=== PATIENT | female | born 1985 | race Caucasian/White ===

== ENCOUNTER 2017-06-21 12:41 | Emergency (ER) | payer OTHER, SELFPAY ==
[2017-06-21 12:42] VITALS: BP 143/81; PULSE 105; RESP 16; TEMP 36.4; O2SAT 99; BMI 41.1
[2017-06-21 12:55] VITALS: O2SAT 98
--- NOTE | 2017-06-21 13:25 | EKG12_ITS ---
Test Reason : SOB Blood Pressure : / mmHG Vent. Rate : 091 BPM Atrial Rate : 091 BPM P-R Int : 150 ms QRS Dur : 084 ms QT Int : 332 ms P-R-T Axes : 057 060 028 degrees QTc Int : 408 ms Normal sinus rhythm with sinus arrhythmia Normal ECG Confirmed by ANNA HARTMAN, SHAYNA ([id number]), restaurant expeditor CARMELLA QUINN ([id number]) on 06/26/2017 4:08:51 PM Referred By: Hanh Balderas Confirmed By:SHAYNA CASTILLO MD
--- NOTE | 2017-06-21 13:26 | VDLE_ITS ---
Reason For Study: SHORTNESS OF BREATH RIGHT LEFT GSV is normal. GSV is normal. CFV is compressible, spontaneous, phasic, CFV is compressible, spontaneous, phasic, competent and demonstrates normal competent, and demonstrates normal augmentation. augmentation. FV is compressible, spontaneous, phasic, FV is compressible, spontaneous, phasic, competent and demonstrates normal competent and demonstrates normal augmentation. augmentation. POP V is compressible, spontaneous, phasic, POP V is compressible, spontaneous, phasic, competent and demonstrates normal competent and demonstrates normal augmentation. augmentation. T/P Trunk is compressible. T/P Trunk is compressible. PTV is compressible. PTV is compressible. RT PerV is compressible. LT PerV is compressible. Procedure Exam performed portable in ED. A preliminary report was called and/or faxed to Dr. Tan. Interpretation Summary No evidence for acute deep venous thrombosis bilateral lower extremities with patent and compressible bilateral great saphenous veins. Ordering Physician: Catherine Tan Referring Physician: Hanh Balderas Performed By: Krisatl Chanel RVT
--- NOTE | 2017-06-21 13:26 | CT_ITS ---
STUDY: CTA CHEST REASON FOR EXAM: Female, 32 years old. Shortness of breath. The patient is 30 weeks . The patient was shielded appropriately. RADIATION DOSAGE (If Supplied By Facility): CTDIvol = ( 29.91 ) mGy, DLP = ( 669.36 ) mGycm TECHNIQUE: The examination was performed with the intravenous administration of 100ML ml of Isovue 370 contrast material. Post-processing of the angiographic images was performed, with multiplanar reformation and 3D reconstruction. Individualized dose optimization techniques were used for this CT. COMPARISON: Comparison is made with prior study dated November 09, 2016. FINDINGS: Normal enhancement of the main pulmonary artery and right and left pulmonary arteries. Normal enhancement of the bilateral peripheral pulmonary arteries. There is no demonstrated pulmonary embolism. Normal thoracic aorta and visualized great vessels. There is no demonstrated aortic dissection. Normal heart and pericardium. Normal mediastinum. Normal hilar regions. Normal visualized trachea and bronchi. The lungs are well expanded. Mild degree of increased markings at the right lung base suggests atelectasis Normal pleura. Normal chest wall structures. Normal osseous structures. Normal visualized upper abdomen. CT/CTA Chest W/WO Contrast IMPRESSION: Normal CTA chest examination, without a demonstrated pulmonary embolism or arterial dissection. Electronically Signed: Christiano Eduardo MD at 15:39 EST Tel [phone], Service support ,
--- NOTE | 2017-06-21 13:30 | ED.VISSUMM ---
- ER Visit Summary Date of Service: 06/21/17 Chief Complaint: Shortness of breath History of Present Illness: The patient is a 32 F presenting with shortness of breath. She states she feels that she cannot get a deep breath. She has had intermittent chest pain today. She is 30 weeks . Denies vaginal bleeding or abdominal pain. She is . She has had lower extremity swelling which she noticed yesterday, but is now improved. She recently finished a Z-Haja for bronchitis. She has had a cough. She follows with Dr. Jeremias Lal. Physical Examination: Blood pressure 143/81, temperature 97.5, heart rate 105, respiratory rate 16, pulse ox 99% on room air. Alert no acute distress. HEENT exam is unremarkable. Neck is supple. Lungs are clear and equal bilaterally. Heart is regular rate and rhythm. Abdomen is soft nontender gravid Extremities are unremarkable. No edema. Skin is warm and dry. No focal neurologic deficit. Remainder of exam is unremarkable. Emergency Department Course and Treatment: EKG is sinus rate of 91 with no acute ischemic changes. CBC chemistries unremarkable. INR is 1.0. Urinalysis shows trace leukocytes, trace protein. Troponin is negative. Liver enzymes are unremarkable. Uric acid is normal. CTA chest shows no evidence of PE. Bilateral lower extremity ultrasound shows no evidence of DVT. Repeat blood pressure without medication is 111/62. heart tones 139. Patient is feeling improved and resting comfortably in the emergency department. Discussed with Dr. Jeremias Lal and patient will follow up with her in the office. Advised return to ED if worsening complaints. Disposition: Discharge home Impression: Bronchitis, This note was generated with [employer] dictation software. It may contain incorrect words, spelling, and punctuation that were not noted in review of the chart prior to signing ED Disposition - Plan for ED Patient: Chief Complaint: Shortness of Breath Referrals: Nmia Whitman MD [Primary Care Provider] -
[2017-06-21 13:44] LABS: Red Blood Cells-Urine 0 SEEN /hpf (0-5)
[2017-06-21 13:45] LABS: Bacteria 0 SEEN /hpf (None Seen); Mucous, Urine 0 SEEN /hpf (<or=2+)
[2017-06-21 13:46] LABS: Color, Urine Yellow (Yellow); Glucose, Dipstick 50 mg/dl (Normal); Ketone-Dipstick 5 mg/dl (Negative); Leukocyte Esterase-Dipstick 25 /ul (Negative); Nitrite-Dipstick Negative (Negative); Occult Blood-Urine Negative /ul (Negative); Protein-Dipstick 15 mg/dl (Negative); Urine Bilirubin Dipstick Negative (Negative); Urine Clarity Sl. Cloudy (Clear); Urine Urobilinogen Normal (Normal); Urine pH 6.5 (5.0 - 8.0)
[2017-06-21 13:54] LABS: Squamous Epithelial Cells - UA 0-5 SEEN /hpf (5-10); White Blood Cells 0-5 SEEN /hpf (0-5)
[2017-06-21 14:26] LABS: Absolute Lymphocyte Count 1.48 X10^3/ul (0.83-4.51); Absolute Neutrophil Count 4.6 X10^3/uL (2.0-7.7); Basophil# 0.01 X10^3/uL; Basophil% 0.1 % (0-1); Eosinophil# 0.12 X10^3/uL; Eosinophils% 1.8 % (0-5); Hematocrit 33.6 % (37-47); Lymphocyte # 1.48 X10^3/ul (4.0); Lymphocyte % 21.7 % (19-41); Mean Corp Hgb Conc 32.7 g/gl (32-36); Mean Corpuscular Hgb 28.6 pg (27.0-32.0); Mean Corpuscular Volume 87.5 fL (81-99); Mean Platelet Vol. 10.7 fl (6.2-12.0); Monocyte# 0.61 X10^3/uL; Monocyte% 8.9 % (0-10); Neutrophil # 4.55 X10^3/uL (2.7-7.7); Neutrophil % 66.8 % (47-70); Platelet Count 163 K/mm3 (150-450); RBC Distribution Width CV 14.2 % (11.6-14.6); RBC Distribution Width SD 44.4 fl (35.1-43.9); Red Blood Count 3.84 M/mm3 (4.2-5.4); White Blood Count 6.8 K/mm3 (4.4-11.0)
[2017-06-21 14:36] LABS: POSITIVE COUNT NO; POSITIVE DIFFERENTIAL NO; POSITIVE MORPHOLOGY NO
[2017-06-21 14:39] LABS: AST(SGOT) 9 U/L (15-37); Alanine Aminotransfer ALT/SGPT 18 U/L (13-56); Albumin, Serum 2.7 g/dL (3.2-5.0); Alkaline Phosphatase 71 U/L (45-117); Anion Gap 8 (5-15); BUN 6 mg/dL (7-18); BUN/Creat Ratio 11.5 RATIO (10-20); Bilirubin, Direct 0.08 mg/dL (0.00-0.30); Calcium,Total 8.7 mg/dL (8.5-10.1); Chloride 104 mmol/L (98-107); Creatinine, Serum 0.52 mg/dL (0.55-1.02); EST Glomerular Filtration Rate 147 mL/min (>60); Est Glom Filt Rate - Afr Amer 178 mL/min (>60); Estimated Creatinine Clearance 142.35 ml/min; Globulin 3.8 g/dL (2.2-4.2); Glucose 114 mg/dL (70-110); Potassium 3.5 mmol/L (3.5-5.1); Protein, Total 6.5 g/dL (6.4-8.2); Sodium Level 138 mmol/L (136-145); Uric Acid 3.1 mg/dL (2.6-6.0)
[2017-06-21 14:40] LABS: Partial Thromboplast Time 26.7 Seconds (24.1-36.2); Prothrombin Time (Protime)PT. 12.4 SECONDS (11.7-14.9)
[2017-06-21 15:07] VITALS: BP 111/62; PULSE 81; RESP 25; O2SAT 96
[2017-06-21 15:56] VITALS: BP 102/80; PULSE 84; RESP 20; O2SAT 99
--- NOTE | 2017-06-21 15:56 | NURSING ---
DR MARIE NAVARRO
--- NOTE | 2017-06-21 16:50 | ED.DEP ---
ED Disposition - Plan for ED Patient: Chief Complaint: Shortness of Breath Instructions: ED Upper Resp Infec No Abx Tx Referrals: Nima Whitman MD [Primary Care Provider] - Cassidy Moore MD [STAFF PHYSICIAN] -
[2017-06-21 16:52] VITALS: BP 120/72; PULSE 85; RESP 21; O2SAT 98
--- NOTE | 2017-06-21 16:52 | ED.RN ---
PT GIVEN WRITTEN AND VERBAL DISCHARGE INSTRUCTIONS. PT VERBALIZES UNDERSTANDING. PT IV D/C AND COVERED WITH 2X2 GAUZE, MINIMAL BLEEDING NOTED. PT AMBULATORY HOME.
== END 2017-06-21 17:00 | disposition home or self-care (01) ==
PROVIDERS: Emergency Provider Emergency Medicine; Family Provider Family Medicine; PCP Family Medicine
DX: O99.513 Diseases of the respiratory system complicating pregnancy, third trimester (principal); J40 Bronchitis, not specified as acute or chronic; O99.283 Endocrine, nutritional and metabolic diseases complicating pregnancy, third trimester; E07.9 Disorder of thyroid, unspecified; Z3A.30 30 weeks gestation of pregnancy
CPT/HCPCS: 71275; 80048; 80076; 81001; 84484; 84550; 85025; 85610; 85730; 93005; 93970; 99283; Q9967; A4216

== ENCOUNTER → 2017-07-13 12:24 | Outpatient (CLI) | payer OTHER, SELFPAY ==
[2017-07-13 13:38] LABS: Absolute Lymphocyte Count 1.33 X10^3/ul (0.83-4.51); Absolute Neutrophil Count 4.7 X10^3/uL (2.0-7.7); Basophil# 0.01 X10^3/uL; Basophil% 0.1 % (0-1); Eosinophil# 0.14 X10^3/uL; Eosinophils% 2.1 % (0-5); Hematocrit 35.7 % (37-47); Hemoglobin 11.7 g/dl (12.0-15.0); Lymphocyte # 1.33 X10^3/ul (4.0); Lymphocyte % 19.5 % (19-41); Mean Corp Hgb Conc 32.8 g/gl (32-36); Mean Corpuscular Hgb 28.4 pg (27.0-32.0); Mean Corpuscular Volume 86.7 fL (81-99); Mean Platelet Vol. 11.2 fl (6.2-12.0); Monocyte# 0.57 X10^3/uL; Monocyte% 8.4 % (0-10); Neutrophil # 4.74 X10^3/uL (2.7-7.7); Neutrophil % 69.5 % (47-70); Platelet Count 164 K/mm3 (150-450); RBC Distribution Width CV 14.6 % (11.6-14.6); RBC Distribution Width SD 44.9 fl (35.1-43.9); Red Blood Count 4.12 M/mm3 (4.2-5.4); White Blood Count 6.8 K/mm3 (4.4-11.0)
[2017-07-13 13:47] LABS: POSITIVE COUNT NO; POSITIVE DIFFERENTIAL NO; POSITIVE MORPHOLOGY NO
[2017-07-13 14:14] LABS: Thyroid Stim Hormone (TSH) 2.53 uIU/mL (0.358-3.74)
== END ==
PROVIDERS: Obstetrics & Gynecology; Family Provider Family Medicine; PCP Family Medicine; Visit Provider Nurse Practitioner Women's Health
DX: E03.9 Hypothyroidism, unspecified (principal)
CPT/HCPCS: 36415; 84443; 85025; 86850; 86900

== ENCOUNTER → 2017-07-14 12:22 | Outpatient (CLI) | payer OTHER, SELFPAY ==
--- NOTE | 2017-07-14 12:24 | US_ITS ---
STUDY: SECOND AND THIRD TRIMESTER OBSTETRICAL ULTRASOUND - LIMITED REASON FOR EXAM: Female, 32 years old. Evaluate for growth. LMP: March 28, 2017. PRIOR ULTRASOUND: April 07, 2017. TECHNIQUE: Transabdominal ultrasound evaluation was performed. FINDINGS: There is a single intrauterine fetus. The fetus is in a cephalic presentation. There is demonstrated cardiac activity with a heart rate of 119 bpm. There is a normal amniotic fluid volume. The largest amniotic fluid pocket measures 6.3 cm. The amniotic fluid index (DERIC) is 18.6 cm. The placenta is fundal in location. There are Grade 1 placental changes. The cervix measures 2.4 cm in length. Appears to be some endocervical fluid and questionable funneling of the cervix. BIOMETRY: BPD: 8.8 cm: 35 weeks, 5 days HC: 31.8 cm: 35 weeks, 6 days AC: 30.4 cm: 34 weeks, 3 days FL: 6.6 cm: 34 weeks, 1 days Age by LMP: 33 weeks, 0 days. AMELIA by LMP: September 01, 2017. age by prior US: 33 weeks, 3 days. AMELIA by prior US: August 29, 2017. age by current US: 35 weeks, 1 days. AMELIA by current US: August 17, 2017. Estimated weight: 2464 grams, +/- 360 grams, 86 percentile. Gender: Indeterminant US/OB Limited With Biometrics IMPRESSION: 1. Single living intrauterine gestation with estimated gestational age by size greater than that predicted by dates. 2. There has been greater than predicted interval growth since previous OB ultrasound. 3. Questionable of funneling of the endocervical canal Electronically Signed: Darline Maurer MD at 9:33 EST , Service support ,
== END ==
PROVIDERS: Family Provider Family Medicine; PCP Family Medicine; Visit Provider Obstetrics & Gynecology
DX: O24.420 Gestational diabetes mellitus in childbirth, diet controlled (principal); Z3A.00 Weeks of gestation of pregnancy not specified; Z37.9 Outcome of delivery, unspecified
CPT/HCPCS: 76816

== ENCOUNTER 2017-07-15 18:45 | Outpatient (CLI) | payer OTHER, SELFPAY ==
[2017-07-15 19:32] LABS: ROM Internal Control Test YES-OK TO RESULT pt. (Internal QC)
[2017-07-15 19:33] LABS: ROM Patient Test Negative (Negative)
[2017-07-15 19:37] VITALS: BMI 40.8
[2017-07-15 21:10] VITALS: RESP 18
--- NOTE | 2017-07-19 22:20 | OB.TRI.NOTE ---
History of Present Illness Date of Service: 07/15/17 Was patient seen by the physician?: No Reason For Visit: R/O ROM Date of Service: 07/15/17 History of Present Illness: questionable ROM and vaginal discharge, threatened PTL Home Medications Medication Instructions Recorded Levothyroxine [Synthroid] 112 mcg PO DAILY 05/27/15 Allergies latex Allergy (Verified 07/17/17 10:49) Itching Penicillins [PCN] Allergy (Verified 07/17/17 10:49) Rash ketorolac [From Toradol] Adverse Reaction (Verified 07/17/17 10:49) Other ondansetron HCl [From Zofran (as hydrochloride)] Adverse Reaction (Verified 07/17/17 10:49) Other headaches Physical Exam Vitals: Vital Signs Resp 18 07/15/17 21:10 NST - FHR Rate Baby A Baseline: 140-150 Variability:: Moderate Accelerations:: 15 x 15 Decelerations:: None NST Reactive:: Yes FHR Category:: Category I Uterine Activity:: no regular Impression/Plan threatened PTL negative ROM just vaginal discharge dc home labor precautions
== END 2017-07-15 21:10 | disposition home or self-care (01) ==
LOC: WPOUT 19:01 → WP 19:01
PROVIDERS: Family Provider Family Medicine; PCP Family Medicine; Visit Provider Obstetrics & Gynecology
DX: O60.00 Preterm labor without delivery, unspecified trimester (principal); N89.8 Other specified noninflammatory disorders of vagina; Z3A.00 Weeks of gestation of pregnancy not specified
CPT/HCPCS: 59025; 59050; 84112

== ENCOUNTER 2017-07-19 12:26 | Outpatient (RCR) | payer OTHER, SELFPAY | END 2017-07-19 23:59 | LOC: DC 12:26 | PROVIDERS: Family Provider Family Medicine; PCP Family Medicine; Visit Provider Obstetrics & Gynecology | DX: O24.410 Gestational diabetes mellitus in pregnancy, diet controlled (principal); Z71.3 Dietary counseling and surveillance | CPT/HCPCS: G0108 ==

== ENCOUNTER → 2017-07-27 14:34 | Outpatient (CLI) | payer OTHER, SELFPAY ==
--- NOTE | 2017-07-27 14:35 | US_ITS ---
STUDY: SECOND AND THIRD TRIMESTER OBSTETRICAL ULTRASOUND - LIMITED REASON FOR EXAM: Female, 32 years old. growth evaluation. Gestational diabetes. LMP: 11/25/2016 PRIOR ULTRASOUND: 07/14/2017 TECHNIQUE: Transabdominal and transvaginal real-time exam with grayscale image documentation. FINDINGS: There is a single intrauterine fetus. The fetus is in a cephalic presentation. There is demonstrated cardiac activity with a heart rate of 155 bpm. There is a normal amniotic fluid volume. The largest amniotic fluid pocket measures 8.3 x 5.6 cm. The amniotic fluid index (DERIC) is 17 cm. The placenta is fundal and not low-lying. There are Grade 1 placental changes. The cervix measures 2.3 cm in length. The cervical canal mildly dilated are open at the cervical os and proximal endocervix. BIOMETRY: BPD: 9.44 cm: 38 weeks, 4 days HC: 34.2 cm: 39 weeks, 4 days AC: 33.4 cm: 37 weeks, 3 days FL: 7.08 cm: 36 weeks, 3 days Age by LMP: 34 weeks, 6 days. AMELIA by LMP: 09/01/2017. age by prior US: 37 weeks, 1 days. AMELIA by prior US: 08/17/2017. age by current US: 38 weeks, 0 days. AMELIA by current US: 08/10/2017. Estimated weight: 3209 grams, +/- 469 grams, 98 percentile. US/OB Limited With Biometrics IMPRESSION: Single intrauterine fetus measuring 38 weeks and 0 days with an AMELIA of 08/10/2017. Amniotic fluid index of 17 cm. Estimated weight of 3209 g +/- 469 g, 98 percentile. The cervical length is 2.3 cm with a mildly dilated fluid-filled proximal endocervical canal. Grade 1, fundal and not low lying placenta. Electronically Signed: Sandra Russell MD at 23:42 EST , Service support ,
== END ==
PROVIDERS: Family Provider Family Medicine; PCP Family Medicine; Visit Provider Obstetrics & Gynecology
DX: O24.410 Gestational diabetes mellitus in pregnancy, diet controlled (principal); Z3A.38 38 weeks gestation of pregnancy
CPT/HCPCS: 76816

== ENCOUNTER → 2017-08-02 13:58 | Outpatient (CLI) | payer OTHER, SELFPAY ==
[2017-08-02 16:12] LABS: Group B Strep DNA By PCR POSITIVE (Negative); Probe Check PASS
== END ==
PROVIDERS: Family Provider Family Medicine; PCP Family Medicine; Visit Provider Obstetrics & Gynecology
DX: Z34.82 Encounter for supervision of other normal pregnancy, second trimester (principal); Z3A.00 Weeks of gestation of pregnancy not specified
CPT/HCPCS: 87653

== ENCOUNTER → 2017-08-10 18:58 | Outpatient (CLI) | payer OTHER, SELFPAY ==
[2017-08-10 23:13] LABS: Group B Strep DNA By PCR POSITIVE (Negative); Probe Check PASS
== END ==
PROVIDERS: Visit Provider Nurse Practitioner Women's Health
DX: Z34.93 Encounter for supervision of normal pregnancy, unspecified, third trimester (principal); Z3A.36 36 weeks gestation of pregnancy
CPT/HCPCS: 87081; 87186; 87653

== ENCOUNTER 2017-08-21 19:45 | Outpatient (CLI) | payer OTHER, SELFPAY ==
[2017-08-21 20:31] VITALS: BMI 40.1
[2017-08-21 20:42] LABS: ROM Internal Control Test YES-OK TO RESULT pt. (Internal QC); ROM Patient Test Negative (Negative)
[2017-08-21 21:10] VITALS: RESP 18
--- NOTE | 2017-08-22 00:19 | OB.TRI.NOTE ---
History of Present Illness Date of Service: 08/21/17 Was patient seen by the physician?: No Reason For Visit: R/O LABOR Date of Service: 08/21/17 History of Present Illness: false labor LOF Home Medications Medication Instructions Recorded Levothyroxine [Synthroid] 112 mcg PO DAILY 05/27/15 acetone (urine) test strips See Dose Instructions .ROUTE 07/31/17 .MEDSUPPLY #100 ea blood sugar diagnostic strips See Dose Instructions .ROUTE 08/08/17 .MEDSUPPLY #100 ea Allergies latex Allergy (Verified 08/21/17 20:30) Itching Penicillins [PCN] Allergy (Verified 08/21/17 20:30) Rash ketorolac [From Toradol] Adverse Reaction (Verified 08/21/17 20:30) Other unknown, pt can't remember reaction ondansetron HCl [From Zofran (as hydrochloride)] Adverse Reaction (Verified 08/21/17 20:30) Other headaches Physical Exam Vitals: Vital Signs Resp 18 08/21/17 21:10 NST - FHR Rate Baby A Baseline: 120 Variability:: Moderate Accelerations:: 15 x 15 Decelerations:: None NST Reactive:: Yes FHR Category:: Category I Uterine Activity:: irregular Impression/Plan negative amnisure reactive nst dc home labor precautions false labor
== END 2017-08-21 21:10 | disposition home or self-care (01) ==
LOC: WPOUT 19:52 → WP 19:52
PROVIDERS: Family Provider Family Medicine; PCP Family Medicine; Visit Provider Obstetrics & Gynecology
DX: O47.9 False labor, unspecified (principal); Z3A.00 Weeks of gestation of pregnancy not specified
CPT/HCPCS: 59025; 59050; 84112; 99218; G0378

== ENCOUNTER 2017-08-25 06:50 | Inpatient (IN) | payer OTHER, SELFPAY ==
[2017-08-25 07:30] VITALS: BMI 40.2
[2017-08-25 07:51] LABS: Bedside Glucose 148 mg/dL (70-110)
[2017-08-25] MEDS: Lactated Ringers 1,000 ML 50 ML IV ×3 (08:20→12:44)
[2017-08-25 08:43] LABS: Hemoglobin 12.2 g/dl (12.0-15.0); Mean Corpuscular Hgb 28.2 pg (27.0-32.0); Mean Corpuscular Volume 85.5 fL (81-99); Mean Platelet Vol. 11.1 fl (6.2-12.0); Platelet Count 151 K/mm3 (150-450); RBC Distribution Width CV 14.6 % (11.6-14.6); RBC Distribution Width SD 44.6 fl (35.1-43.9); Red Blood Count 4.33 M/mm3 (4.2-5.4); White Blood Count 7.1 K/mm3 (4.4-11.0)
--- NOTE | 2017-08-25 08:46 | NURSING ---
POC BG non fasting at 148. recheck at 0840
[2017-08-25 08:47] LABS: Scan Indicated on CBC? Y/N NO
[2017-08-25 09:01] LABS: Bedside Glucose 89 mg/dL (70-110)
[2017-08-25] MEDS: fentaNYL-bupivacaine (epidural) 100 ML BAG EPIDURAL ×2 (10:51→15:03)
[2017-08-25 11:10] LABS: Bedside Glucose 82 mg/dL (70-110)
[2017-08-25 13:16] LABS: Bedside Glucose 91 mg/dL (70-110)
[2017-08-25] MEDS: Oxytocin 30 units/NS 500 ml 30 UNITS/500 ML IV.SOLN IV (14:04)
[2017-08-25 14:56] LABS: Bedside Glucose 75 mg/dL (70-110)
[2017-08-25] MEDS: Oxytocin 30 units/NS 500 ml 30 UNITS/500 ML IV.SOLN 334 UNITS IV (17:22)
[2017-08-25 17:45] LABS: Bedside Glucose 121 mg/dL (70-110)
[2017-08-25] MEDS: Oxytocin 30 units/NS 500 ml 30 UNITS/500 ML IV.SOLN 167 UNITS IV (17:52)
[2017-08-25 18:05] LABS: Bedside Glucose 84 mg/dL (70-110)
[2017-08-25 19:20] VITALS: BP 119/68; PULSE 90; RESP 18; TEMP 37.1; O2SAT 100
--- NOTE | 2017-08-25 19:48 | NURSING ---
1920-alba cut at delivery legs numb and tingling from epidural. able to move them, however not able to lift off the bed.
[2017-08-25 20:00] VITALS: BP 141/60
[2017-08-25] MEDS: proCHLORPERazine 5 MG Tablet 10 MG PO (20:32)
[2017-08-25 23:00] VITALS: BP 110/53; PULSE 83; RESP 18; TEMP 36.4; O2SAT 97
[2017-08-26] MEDS: Acetaminophen 500 MG Tablet 1000 MG PO ×2 (01:20→15:24)
[2017-08-26] MEDS: oxyCODONE 5 MG Tablet PO ×2 (02:45→20:13)
[2017-08-26 02:48] VITALS: BP 99/50; PULSE 79; RESP 20; TEMP 36.6; O2SAT 100
--- NOTE | 2017-08-26 06:26 | PCM.HP.OB ---
- Problem List (1) Active labor at term Status: Acute (2) Positive GBS test Status: Acute (3) Large for gestational age fetus Status: Acute Comment: EFW less than 4500g at 39 weeks, still plan IOL and (4) Gestational diabetes, diet controlled Status: Acute Qualifiers: Comment: diagnosed based on blood value testing at home, endocrine consult (5) Supervision of normal Status: Acute Qualifiers: Comment: PRR AMELIA 09/01/17 PC Vern Salvatore (6) Rh negative state in antepartum period Status: Acute Comment: Rhogam PRN (7) Hypothyroid Status: Acute Qualifiers: Comment: TSH q trimester (8) Anxiety Status: Acute Comment: celexa and vistaril (9) History of placenta abruption Status: Acute Comment: previous History Date of Admission: 08/25/17 Final AMELIA: 09/01/17 Gestational age: 39 Weeks and 0 Days History of this : 32 yo @ 39 weeks presents IAL 5-6 cm Pertinent Past Medical History: Past Surgical History (Last Reviewed 08/22/17 @ 09:56 by Lenka Swan) arm surgery (Acute) leg surgery (Acute) Mom's Labs & Results 08/25/17 08/25/17 08/25/17 07:37 08:19 08:19 WBC 7.1 RBC 4.33 Hgb 12.2 Hct 37.0 MCV 85.5 MCH 28.2 MCHC 33.0 RDW 14.6 RDW Differential 44.6 H Plt Count 151 MPV 11.1 POC Glucose 148 H Blood Type TNP Antibody Screen TNP Screen Baby's Blood Type Baby's VIRGIL 08/25/17 08/25/17 08/25/17 08:19 08:55 11:03 WBC RBC Hgb Hct MCV MCH MCHC RDW RDW Differential Plt Count MPV POC Glucose 89 82 Blood Type A NEGATIVE Antibody Screen NEGATIVE Screen Baby's Blood Type Baby's VIRGIL 08/25/17 08/25/17 08/25/17 13:07 14:40 15:53 WBC RBC Hgb Hct MCV MCH MCHC RDW RDW Differential Plt Count MPV POC Glucose 91 75 121 H Blood Type Antibody Screen Screen Baby's Blood Type Baby's VIRIGL 08/25/17 08/25/17 17:55 19:05 WBC RBC Hgb Hct MCV MCH MCHC RDW RDW Differential Plt Count MPV POC Glucose 84 Blood Type Antibody Screen Screen NEGATIVE Baby's Blood Type A POSITIVE Baby's VIRGIL NEGATIVE Course Did the patient receive Yes care? Labs Blood Type: A RH: NEGATIVE RPR/VDRL/Syphilis Nonreactive Rubella status Immune HbSAg Negative Date Done: 02/09/17 Chlamydia Negative Gonorrhea Negative HIV/AIDS Non-Reactive Group B Strep: Positive Current Obstetrical History Gestational Diabetes Yes Incompetent Cervix No Infertility No IUGR No Macrosomia Yes: baby measuring LGA Hypertension/Pre-eclampsia No Placenta Previa/Abruption No PTL/PROM No Uterine anomaly No Oligohydramnios No Polyhydramnios No Multiple gestation No Past Medical History Asthma No Diabetes No Hypertension No Heart disease No Mitral valve prolapse No Neurologic/Seizure disorder/ Yes: migraines-no meds during Migraines Kidney disease No Liver disease No Varicosities Yes: right leg Clotting disorders/Hx of DVT No Thyroid Dysfunction Yes: hypothyroidism, on synthroid Other medical diseases No Psychiatric disorders No Major trauma No Abnormal PAP smear No Sleep apnea No Mammogram in the last 2 years No Social History Marital Status: Alleged father Salvatore Hx Smoking Yes Smoking Status Current every day smoker How long have you used n/a substances (years)? Allergies latex Allergy (Verified 08/25/17 07:33) Itching Penicillins [PCN] Allergy (Verified 08/25/17 07:33) Rash ketorolac [From Toradol] Adverse Reaction (Verified 08/25/17 07:33) Other unknown, pt can't remember reaction ondansetron HCl [From Zofran (as hydrochloride)] Adverse Reaction (Verified 08/25/17 07:33) Other headaches Current Medications Acetaminophen (Tylenol) 325 - 650 mg PO Q4H PRN PRN PRN Reason: PAIN OR FEVER >100.4F Acetaminophen (Tylenol) 1,000 mg PO Q8H PRN PRN PRN Reason: MILD PAIN (1-3/10)/Temp>99.6F Last Admin: 08/26/17 01:20 Dose: 1,000 mg Al Hydroxide/Mg Hydroxide (Mylanta Ii) 15 - 30 ml PO Q4H PRN PRN PRN Reason: INDIGESTION Bisacodyl (Dulcolax) 10 mg RECTAL UD PRN PRN Reason: If no BM Citric Acid/Sodium Citrate (Bicitra) 30 ml PO UD PRN Dibucaine (Dibucaine) 1 applic TOPICAL TID PRN PRN; Protocol PRN Reason: Discomfort Hydrocortisone (Hytone) 1 applic TOPICAL TID PRN PRN; Protocol PRN Reason: Discomfort Oxytocin/Sodium Chloride () 30 units in 500 mls @ 1 mls/hr IV .Q500H [facility] Last Admin: 08/25/17 14:04 Dose: 1 mls/hr Naloxone HCl 4 mg/ Dextrose 504 mls @ 0 mls/hr IV PRN PRN; Protocol PRN Reason: TO MAINTAIN RR>10 Lactated Ringer's () 1,000 mls @ 0 mls/hr IV .Q0M RICHA PRN Reason: KVO Levothyroxine Sodium (Synthroid) 112 mcg PO DAILY@0600 [facility] Methylergonovine Maleate (Methergine) 0.2 mg IM X1 PRN PRN Reason: Excess bleeding/uterine atony Nalbuphine HCl (Nubain) 5 - 10 mg IV Q3H PRN PRN PRN Reason: PAIN (4-10/10) Nalbuphine HCl (Nubain) 5 mg IV Q3H PRN PRN Reason: ITCHING Stop: 08/26/17 13:22 Naloxone HCl (Narcan) 0.2 mg IV Q1M PRN PRN Reason: RR<10 AND PT UNRESPONSIVE Stop: 08/26/17 13:22 Naproxen (Naprosyn) 250 - 500 mg PO Q8H PRN PRN PRN Reason: MILD PAIN (1-3/10) Ondansetron HCl (Zofran) 4 mg IV Q4H PRN PRN PRN Reason: Nausea Oxycodone HCl (Oxyir) 5 - 10 mg PO Q4H PRN PRN PRN Reason: MOD-SEVERE PAIN (4-10/10) Last Admin: 08/26/17 02:45 Dose: 5 mg Promethazine HCl (Phenergan Iv) 6.25 - 12.5 mg IV Q4H PRN PRN; Protocol PRN Reason: IF NAUSEA PERSISTS Senna/Docusate Sodium (Senokot-S, Shania-Colace) 1 - 2 tablet PO DAILY PRN PRN PRN Reason: Constipation Simethicone (Mylicon) 80 mg PO PCHS PRN PRN Reason: Indigestion/Stomach pain Sodium Chloride () 5 - 15 ml IV UD RICHA Last Admin: 08/25/17 08:44 Dose: Not Given Smoking Status: Never smoker Alcohol: None Drug Use: none Number of Fetus(es): 1 - 140 moderate variability reactive no decels Review of Systems Constitutional: Denies: Chills, Fever, Weight Change HEENT: Denies: Head Aches, Sinus Congestion, Sinus Drainage Cardiovascular: Denies: Chest Pain, Palpitations Respiratory: Denies: Cough, Shortness of breath at rest, Sputum production Gastrointestinal: Reports: Abdominal Pain. Denies: Nausea, Vomiting Genitourinary: Denies: Dysuria Gynecological: Reports: Vaginal bleeding, Vaginal discharge Musculoskeletal: Denies: Joint Pain, Joint Tenderness Skin: Denies: Rash, Wounds Neurological: Denies: Numbness, Tingling, Focal weakness Psychiatric: Denies: Anxiety, Depression, Homicidal Ideations, Suicidal Ideations Hematologic/ Lymphatic: Denies: Easy Bruising, Easy Bleeding Physical Exam Vitals: Vital Signs Temp Pulse Resp BP Pulse Ox 97.9 F 79 20 H 99/50 L 100 08/26/17 02:48 08/26/17 02:48 08/26/17 02:48 08/26/17 02:48 08/26/17 02:48 General: Alert Cardiovascular: Regular rate Lungs: Normal air movement Abdomen: Soft, Non Tender, Gravid Estimated gestational size: Large for gestational age Presentation: Cephalic Cervix Dilation (cm): 5.5 Station: -3 Effacement (%): 70 Assessment/Plan Active and Suspected Problems (Last Reviewed 08/22/17 @ 09:56 by Lenka Swan) Active labor at term (Acute) 32 yo @ 39 weeks presents IAL arom when able pit if needed gbs pos- pcn gdma1 bs1 hour
[2017-08-26] MEDS: Levothyroxine 112 MCG Tablet PO (06:29)
--- NOTE | 2017-08-26 06:37 | PCM.OB.VAG ---
- Problem List (1) Active labor at term Status: Acute (2) Positive GBS test Status: Acute (3) Large for gestational age fetus Status: Acute Comment: EFW less than 4500g at 39 weeks, still plan IOL and (4) Gestational diabetes, diet controlled Status: Acute Qualifiers: Comment: diagnosed based on blood value testing at home, endocrine consult (5) Supervision of normal Status: Acute Qualifiers: Comment: PRR AMELIA 09/01/17 PC Vern Salvatore (6) Rh negative state in antepartum period Status: Acute Comment: Rhogam PRN (7) Hypothyroid Status: Acute Qualifiers: Comment: TSH q trimester (8) Anxiety Status: Acute Comment: celexa and vistaril (9) History of placenta abruption Status: Acute Comment: previous Vaginal Delivery Maternal Presentation: Active Labor 39 week IAL 5-6 cm Amniotic Membrane Rupture Type: Artificial Amniotic Fluid Description: Clear Final AMELIA: 09/01/17 Gestational age: 39 Weeks and 0 Days Date of Procedure: 08/25/17 Pre-Operative Diagnosis: ial Post-Operative Diagnosis: same Surgery/ Procedure Performed: Spontaneous Vaginal Delivery Type of Anesthesia: Epidural Description of Procedure: Patient began pushing and delivered the head in the PRUDENCIO presentation. The head was delivered atraumatically and a loss nuchal cord x 1 was easily reduced over the infants head. The anterior and posterior shoulders delivered without complication followed by the rest of the and the infant was placed on the maternal abdomen. Delayed cord clamping was employed for approximately 60 seconds. Cord was clamped and cut and gentle traction was applied to the cord and the placenta delivered spontaneously immediately following it was noted to be intact with three-vessel cord. The perineum and vagina were inspected and noted to have no laceration. EBL was 200 cc. Patient and tolerated delivery well. Presentation: PRUDENCIO Placental Delivery Description: Spontaneous Placenta Disposition: [facility] Cord Vessel Description: 3 Vessels Cord Entanglement: Around neck x 1, loose Estimated Blood Loss: 200 Infant A gender: Female Episiotomy Description: None Laceration: Perineal Extension/lac, 2nd degree Medications given after delivery: IV Pitocin Complications: None
--- NOTE | 2017-08-26 06:39 | DCINST_ITS ---
Discharge Diet: No Restrictions Discharge Activity: Return to Normal Activity, May not drive while taking narcotic pain medications., May Shower May resume sexual activity in: 4-6 weeks Call your doctor if your incision/area has: Continuous Slow Oozing, Sudden Increased Bleeding, Increased Pain/ Swelling, Increased Redness, Foul Smelling Discharge Additional Instructions: If you experience any of the following, contact your healthcare provider. * Bleeding that soaks a pad every hour for 2 hours * Fever 100.4 or higher * Unrelieved incision or abdominal pain * Swelling, redness, discharge or bleeding from your incision or episiotomy site * Your incision begins to separate * Problems urinating (including inability to urinate or burning while urinating) . * Visual changes * Severe headache * Flu-like symptoms * Pain or redness in one of both of your breasts * Pain, warmth, tenderness or swelling in your legs, especially the calf area * Frequent nausea and vomiting * Symptoms of depression or anxiety If you experience any of the following, call 911 or go to the nearest Emergency Room. * Chest pain * Problems breathing * Seizure activity * Partial or complete paralysis of a body part, slurred speech, weakness or drooping of the face, or a sudden inability to walk or hold your balance Allergies/Adverse Reactions: Allergies latex Allergy (Verified 08/25/17 07:33) Itching Penicillins [PCN] Allergy (Verified 08/25/17 07:33) Rash ketorolac [From Toradol] Adverse Reaction (Verified 08/25/17 07:33) Other unknown, pt can't remember reaction ondansetron HCl [From Zofran (as hydrochloride)] Adverse Reaction (Verified 11/06 07:33) Other headaches Medications to take at Discharge Levothyroxine [Synthroid] 112 mcg PO DAILY 05/27/15 Please Follow Up With: Cassidy Moore MD - [phone] When: Call to make an appointment with your doctor in 6 weeks. If you had elevated Blood pressure or 4th degree laceration you will need to be seen in 2 weeks. Primary Care Physician: Nima Whitman MD [Primary Care Provider] -
--- NOTE | 2017-08-26 06:39 | PCM.DCVAG ---
Discharge Diet: No Restrictions Discharge Activity: Return to Normal Activity, May not drive while taking narcotic pain medications., May Shower May resume sexual activity in: 4-6 weeks Call your doctor if your incision/area has: Continuous Slow Oozing, Sudden Increased Bleeding, Increased Pain/ Swelling, Increased Redness, Foul Smelling Discharge Additional Instructions: If you experience any of the following, contact your healthcare provider. Bleeding that soaks a pad every hour for 2 hours Fever 100.4 or higher Unrelieved incision or abdominal pain Swelling, redness, discharge or bleeding from your incision or episiotomy site Your incision begins to separate Problems urinating (including inability to urinate or burning while urinating). Visual changes Severe headache Flu-like symptoms Pain or redness in one of both of your breasts Pain, warmth, tenderness or swelling in your legs, especially the calf area Frequent nausea and vomiting Symptoms of depression or anxiety If you experience any of the following, call 911 or go to the nearest Emergency Room. Chest pain Problems breathing Seizure activity Partial or complete paralysis of a body part, slurred speech, weakness or drooping of the face, or a sudden inability to walk or hold your balance Allergies/Adverse Reactions: Allergies latex Allergy (Verified 08/25/17 07:33) Itching Penicillins [PCN] Allergy (Verified 08/25/17 07:33) Rash ketorolac [From Toradol] Adverse Reaction (Verified 08/25/17 07:33) Other unknown, pt can't remember reaction ondansetron HCl [From Zofran (as hydrochloride)] Adverse Reaction (Verified 08/25/17 07:33) Other headaches Medications to take at Discharge Levothyroxine [Synthroid] 112 mcg PO DAILY 05/27/15 Please Follow Up With: Cassidy Moore MD - [phone] When: Call to make an appointment with your doctor in 6 weeks. If you had elevated Blood pressure or 4th degree laceration you will need to be seen in 2 weeks. Primary Care Physician: Nima Whitman MD [Primary Care Provider] -
[2017-08-26 06:50] LABS: Bedside Glucose 130 mg/dL (70-110)
--- NOTE | 2017-08-26 07:04 | NURSING ---
called Dr. Moore and notified of bs 130 and pt had loradoone cookies at 0300. No new orders at this time.
[2017-08-26 07:53] VITALS: BP 98/54; PULSE 59; RESP 16; TEMP 36.4
--- NOTE | 2017-08-26 09:35 | PN.OBGYN_ITS ---
Patient Problems: Active and Suspected Problems (Last Reviewed 08/22/17 @ 09:56 by Lenka Swan) Active labor at term (Acute) Subjective: doing well no complaints - Physical Exam General: Alert, Oriented x3 Vital Signs Temp Pulse Resp BP Pulse Ox 97.5 F L 59 L 16 98/54 L 100 08/26/17 07:53 08/26/17 07:53 08/26/17 07:53 08/26/17 07:53 08/26/17 02:48 Oxygen Delivery Method Room Air Weight: 242 lb 1.081 oz Body Mass Index (BMI) 40.2 Intake and Output for Last 24 Hours 08/24/17 08/25/17 08/26/17 23:59 23:59 23:59 Intake Total 4544 / 4544 Output Total 1900 / 1900 500 / 500 Balance 2644 / 2644 -500 / -500 Laboratory Tests Past 24 Hrs 08/25/17 08/25/17 08:19 19:05 Blood Type A NEGATIVE Antibody Screen NEGATIVE Screen NEGATIVE Baby's Blood Type A POSITIVE Baby's VIRGIL NEGATIVE POC Glucose 08/26/17 08/25/17 08/25/17 06:32 17:55 15:53 POC Glucose 130 H 84 121 H 08/25/17 08/25/17 08/25/17 14:40 13:07 11:03 POC Glucose 75 91 82 Medical Necessity - Tobacco Use Smoking Status: Never smoker Assessment/Plan Active and Suspected Problems (Last Reviewed 08/22/17 @ 09:56 by Lenka Swan) [facility]Acute[facility]
[2017-08-26 12:32] VITALS: BP 106/61; PULSE 83; RESP 16; TEMP 37.1
[2017-08-26 15:56] VITALS: BP 111/63; PULSE 63; RESP 16; TEMP 37.2
[2017-08-26 19:52] VITALS: BP 129/61; PULSE 85; RESP 18; TEMP 37.2; O2SAT 98
[2017-08-27 02:00] VITALS: BP 109/71; PULSE 75; RESP 18; TEMP 36.8; O2SAT 100
[2017-08-27] MEDS: oxyCODONE 5 MG Tablet PO ×3 (02:15→12:16)
[2017-08-27] MEDS: Levothyroxine 112 MCG Tablet PO (06:52)
[2017-08-27] MEDS: Senna/Docusate Sodium 1 Tablet PO (08:14)
[2017-08-27 08:20] VITALS: BP 118/77; PULSE 83; RESP 16; TEMP 36.7; O2SAT 98
[2017-08-27 12:17] VITALS: BP 111/84; PULSE 82; RESP 18; TEMP 36.9; O2SAT 100
--- NOTE | 2017-08-27 12:30 | NURSING ---
Mother verified infant ID bands prior to discharge.
== END 2017-08-27 12:40 | disposition home or self-care (01) | DRG 775 ==
PROVIDERS: Admitting Provider Obstetrics & Gynecology; Family Provider Family Medicine; PCP Family Medicine; Visit Provider Obstetrics & Gynecology
DX: O99.824 Streptococcus B carrier state complicating childbirth (principal); O36.63X0 Maternal care for excessive fetal growth, third trimester, not applicable or unspecified; O24.420 Gestational diabetes mellitus in childbirth, diet controlled; O69.81X0 Labor and delivery complicated by cord around neck, without compression, not applicable or unspecified; O99.284 Endocrine, nutritional and metabolic diseases complicating childbirth; E03.9 Hypothyroidism, unspecified; O99.334 Smoking (tobacco) complicating childbirth; Z3A.39 39 weeks gestation of pregnancy; Z37.0 Single live birth
CPT/HCPCS: 59025; 59050; 82962; 85027; 85461; 86850; 86900; 86901; 90384; 99218; J7120; G0378; J2790

== ENCOUNTER 2017-09-05 11:48 | Emergency (ER) | payer OTHER, SELFPAY ==
[2017-09-05 11:50] VITALS: BP 118/70; PULSE 93; RESP 16; TEMP 36.8; O2SAT 9; BMI 35.8
--- NOTE | 2017-09-05 12:09 | CT_ITS ---
STUDY: CT BRAIN WITHOUT CONTRAST REASON FOR EXAM: Female, 32 years old. headaches. RADIATION DOSAGE (If Supplied By Facility): CTDIvol = ( 44.99 ) mGy, DLP = ( 728.62 ) mGycm TECHNIQUE: Transaxial CT imaging of the brain was performed without administration of intravenous contrast material. Individualized dose optimization techniques were used for this CT. COMPARISON: None. FINDINGS: Normal soft tissue structures. Normal calvarium. Normal size ventricles and extra-axial spaces for the patient's age. Normal white matter tracts of the cerebral hemispheres. Normal basal ganglia and thalami. Normal brainstem. Normal cerebellum. There is no intracranial hemorrhage. There are no findings of an acute ischemic infarction. Normal visualized paranasal sinuses. CT/Brain/Head without Contrast IMPRESSION: Normal unenhanced CT scan of the brain. Electronically Signed: Christiano Eduardo MD at 13:24 EDT Tel [phone], Service support ,
[2017-09-05 12:49] LABS: Absolute Lymphocyte Count 1.54 X10^3/ul (0.83-4.51); Absolute Neutrophil Count 2.2 X10^3/uL (2.0-7.7); Basophil# 0.01 X10^3/uL; Basophil% 0.2 % (0-1); Eosinophil# 0.19 X10^3/uL; Eosinophils% 4.6 % (0-5); Hematocrit 39.2 % (37-47); Hemoglobin 12.6 g/dl (12.0-15.0); Lymphocyte # 1.54 X10^3/ul (4.0); Lymphocyte % 36.9 % (19-41); Mean Corp Hgb Conc 32.1 g/gl (32-36); Mean Corpuscular Hgb 27.8 pg (27.0-32.0); Mean Corpuscular Volume 86.5 fL (81-99); Mean Platelet Vol. 10.5 fl (6.2-12.0); Monocyte# 0.27 X10^3/uL; Monocyte% 6.5 % (0-10); Neutrophil # 2.15 X10^3/uL (2.7-7.7); Neutrophil % 51.6 % (47-70); Platelet Count 174 K/mm3 (150-450); RBC Distribution Width CV 13.8 % (11.6-14.6); RBC Distribution Width SD 43.5 fl (35.1-43.9); Red Blood Count 4.53 M/mm3 (4.2-5.4); White Blood Count 4.2 K/mm3 (4.4-11.0)
[2017-09-05 12:50] LABS: POSITIVE COUNT NO; POSITIVE DIFFERENTIAL NO; POSITIVE MORPHOLOGY NO
[2017-09-05 12:59] LABS: ALB/GLOB Ratio 0.8 RATIO (0.9-2.4); AST(SGOT) 20 U/L (15-37); Alanine Aminotransfer ALT/SGPT 29 U/L (13-56); Albumin, Serum 3.1 g/dL (3.2-5.0); Alkaline Phosphatase 109 U/L (45-117); Anion Gap 9 (5-15); BUN 9 mg/dL (7-18); BUN/Creat Ratio 10.8 RATIO (10-20); Calcium,Total 8.3 mg/dL (8.5-10.1); Chloride 104 mmol/L (98-107); Creatinine, Serum 0.84 mg/dL (0.55-1.02); EST Glomerular Filtration Rate 85 mL/min (>60); Est Glom Filt Rate - Afr Amer 103 mL/min (>60); Estimated Creatinine Clearance 91.68 ml/min; Globulin 3.8 g/dL (2.2-4.2); Glucose 111 mg/dL (74-106); Potassium 3.7 mmol/L (3.5-5.1); Protein, Total 6.9 g/dL (6.4-8.2); Sodium Level 140 mmol/L (136-145)
--- NOTE | 2017-09-05 13:30 | ED.VISSUMM ---
- ER Visit Summary Date of Service: 09/05/17 Chief Complaint: Headache History of Present Illness: The patient is a [address] Will Lal and Dr. Whitman. She reports that she had a vaginal delivery August [address] Will Lal. She did have an epidural for this. There were no difficulties during this. Patient reports that her lochia is decreasing and there is no odor. Patient reports that she has headache on the left side that began at 9 PM yesterday. Is gradually gotten worse. It is a sharp, throbbing pain. She reports that she has had similar headaches multiple times in the past but that typically they are relieved with her Compazine and ketoprofen. States pain is 7 out of 10 at worst and 4-10 currently. Is worsened by nothing relieved by nothing. She denies any photophobia. No nausea or vomiting. No fever or chills. Physical Examination: Vitals: Stable. Afebrile. Neck: Supple with no meningismus. Neuro: Cranial nerves II through XII are intact, 5 out of 5 strength throughout, normal sensation to light touch throughout. Normal gait. General: A&O x 3. NAD. Cardiovascular exam: Regular rate and rhythm, no murmur, rub or gallop. Respiratory exam: Clear to auscultation bilaterally. No wheezes or stridor. Abdominal exam: Soft, nontender, nondistended, normal bowel sounds. No peritoneal signs. Back: The area of her epidural is clean and dry. There is no erythema. There is no drainage. Is not tender to palpation. Extremity: No clubbing, cyanosis, or edema. Test Results: CT brain shows no acute disease. CBC is marked for white count of 4.2. Chem-7 is more for chloride of 111 and calcium 8.3. LFTs marked for an albumin 3.1. Emergency Department Course and Treatment: Patient refused pain and nausea medications. Her repeat blood pressure is 102/76. There is no evidence that this is from preeclampsia. Patient refused a lumbar puncture. Treatment Plan: Patient will be discharged instructions to follow-up Dr. Moore as previously directed. She is instructed from Dr. Whitman in 1-2 days not improving. Return to the emergency department for any worsening symptoms. Disposition: To home in improved and stable condition. Impression: 1. Cephalgia. 2. 11 day status post vaginal delivery. This note was generated with [employer] dictation software. It may contain incorrect words, spelling, and punctuation that were not noted in review of the chart prior to signing ED Disposition - Plan for ED Patient: Chief Complaint: Headache Instructions: ED Cephalgia Unspecified Referrals: Nima Whitman MD [Primary Care Provider] - 1-2 Days if not improving Cassidy Moore MD [STAFF PHYSICIAN] - Keep Edwin appointment
[2017-09-05 14:09] VITALS: BP 111/60; PULSE 78; RESP 26; O2SAT 98
[2017-09-05 14:10] VITALS: BP 111/60; PULSE 78; RESP 26; O2SAT 98
== END 2017-09-05 14:10 | disposition home or self-care (01) ==
LOC: ED 12:32
PROVIDERS: Emergency Provider Emergency Medicine; Family Provider Family Medicine; PCP Family Medicine
DX: O90.89 Other complications of the puerperium, not elsewhere classified (principal); R51 Headache; O99.335 Smoking (tobacco) complicating the puerperium; F17.200 Nicotine dependence, unspecified, uncomplicated; Z79.899 Other long term (current) drug therapy
CPT/HCPCS: 70450; 80053; 85025; 99284

== ENCOUNTER → 2017-10-06 12:13 | Outpatient (CLI) | payer OTHER, SELFPAY ==
[2017-10-06 13:46] LABS: T4 Free Direct 1.13 ng/dL (0.76-1.46); Thyroid Stim Hormone (TSH) 0.27 uIU/mL (0.358-3.74)
== END ==
PROVIDERS: Visit Provider Obstetrics & Gynecology
DX: E01.0 Iodine-deficiency related diffuse (endemic) goiter (principal)
CPT/HCPCS: 36415; 84439; 84443

== ENCOUNTER 2017-10-07 23:19 | Emergency (ER) | payer OTHER, SELFPAY ==
[2017-10-07 23:20] VITALS: BP 131/85; PULSE 87; RESP 15; TEMP 36.8; BMI 36.8
--- NOTE | 2017-10-07 23:40 | ED.VISSUMM ---
- ER Visit Summary Date of Service: 10/07/17 Chief Complaint: My thyroid is enlarged History of Present Illness: The patient is a 32 F who complains of difficulty swallowing hoarseness and a mild sore throat for the past 2 days. She saw her CONTINUOUS IMPROVEMENT ENGINEER in the office and was told that her thyroid was enlarged. She is already treated for hypothyroidism and is on levothyroxine. She had laboratory studies done yesterday. She also states an ultrasound of her thyroid was ordered. However she had some discomfort with swallowing today so presented here tonight. She is otherwise completely asymptomatic. She denies any fevers chest pain shortness of breath nausea vomiting diarrhea sweats rashes. Physical Examination: Afebrile vitals are normal No distress resting comfortably Moist mucous membranes Mild thyromegaly with mild tenderness Airway patent normal phonation no stridor Heart regular rate and rhythm Lungs are clear Test Results: Not indicated Emergency Department Course and Treatment: I reviewed the patient's laboratory studies from yesterday. Her TSH is slightly low and T4 is normal. I explained that it is appropriate for her to undergo further outpatient workup and if there is no indication for any emergent thyroid ultrasound at this time. She understands to return for new or worsening symptoms and otherwise to follow-up with her physicians as an outpatient and continue outpatient workup. She was discharged. Treatment Plan: [] Disposition: Discharge Impression: Thyromegaly This note was generated with [employer] dictation software. It may contain incorrect words, spelling, and punctuation that were not noted in review of the chart prior to signing ED Disposition - Plan for ED Patient: Chief Complaint: Other, Pain/Inj Referrals: Nima Whitman MD [Primary Care Provider] -
--- NOTE | 2017-10-07 23:43 | ED.DCSUM_ITS ---
- ER Visit Summary Date of Service: 10/07/17 Chief Complaint: My thyroid is enlarged History of Present Illness: The patient is a 32 F who complains of difficulty swallowing hoarseness and a mild sore throat for the past 2 days. She saw her UNIT SECRETARY in the office and was told that her thyroid was enlarged. She is already treated for hypothyroidism and is on levothyroxine. She had laboratory studies done yesterday. She also states an ultrasound of her thyroid was ordered. However she had some discomfort with swallowing today so presented here tonight. She is otherwise completely asymptomatic. She denies any fevers chest pain shortness of breath nausea vomiting diarrhea sweats rashes. Physical Examination: Afebrile vitals are normal No distress resting comfortably Moist mucous membranes Mild thyromegaly with mild tenderness Airway patent normal phonation no stridor Heart regular rate and rhythm Lungs are clear Test Results: Not indicated Emergency Department Course and Treatment: I reviewed the patient's laboratory studies from yesterday. Her TSH is slightly low and T4 is normal. I explained that it is appropriate for her to undergo further outpatient workup and if there is no indication for any emergent thyroid ultrasound at this time. She understands to return for new or worsening symptoms and otherwise to follow-up with her physicians as an outpatient and continue outpatient workup. She was discharged. Treatment Plan: [] Disposition: Discharge Impression: Thyromegaly This note was generated with [employer] dictation software. It may contain incorrect words, spelling, and punctuation that were not noted in review of the chart prior to signing ED Disposition - Plan for ED Patient: Chief Complaint: Other, Pain/Inj Referrals: Nima Whitman MD [Primary Care Provider] -
--- NOTE | 2017-10-07 23:43 | ED.DEP ---
ED Disposition - Plan for ED Patient: Chief Complaint: Other, Pain/Inj Instructions: ED Hypothyroidism, Evaluating Thyroid Problems Referrals: Nima Whitman MD [Primary Care Provider] - Cassidy Moore MD [STAFF PHYSICIAN] -
== END 2017-10-07 23:56 | disposition home or self-care (01) ==
LOC: ED 23:50
PROVIDERS: Emergency Provider Emergency Medicine; Family Provider Family Medicine; PCP Family Medicine
DX: E04.9 Nontoxic goiter, unspecified (principal); E03.9 Hypothyroidism, unspecified; Z79.899 Other long term (current) drug therapy
CPT/HCPCS: 99282

== ENCOUNTER → 2017-10-09 12:15 | Outpatient (CLI) | payer OTHER, SELFPAY ==
--- NOTE | 2017-10-09 12:18 | US_ITS ---
STUDY: THYROID ULTRASOUND REASON FOR EXAM: Female, 32 years old. Thyroid disorder. TECHNIQUE: Ultrasound evaluation of the thyroid was performed with real-time and static gonzalez-scale imaging. COMPARISON: None. FINDINGS: RIGHT LOBE: The right lobe of the thyroid gland measures 4.6 x 1.6 x 1.7 cm. There is a heterogeneous echotexture. There are no demonstrated solid, cystic or complex lesions. There is normal vascularity on Doppler imaging. LEFT LOBE: The left lobe of the thyroid gland measures 5.1 x 1.6 x 1.9 cm. There is a heterogeneous echotexture. There are no demonstrated solid, cystic or complex lesions. There is normal vascularity on Doppler imaging. ISTHMUS: The isthmus measures 0.6 cm. The regional lymph nodes are normal. US/Thyroid IMPRESSION: Heterogenous thyroid without distinct masses. Electronically Signed: Ruben Stone DO at 13:07 EDT Tel [phone], Service support ,
== END ==
PROVIDERS: Family Provider Family Medicine; PCP Family Medicine; Visit Provider Obstetrics & Gynecology
DX: E01.0 Iodine-deficiency related diffuse (endemic) goiter (principal)
CPT/HCPCS: 76536

== ENCOUNTER 2017-10-26 13:25 | Emergency (ER) | payer OTHER, SELFPAY ==
--- NOTE | 2017-10-26 13:25 | DT_ITS ---
This patient was seen during an EMR downtime October 23, 2017 - October 30, 2017. This patient may have a combination of paper and electronic documentation or all paper documentation. All documentation is viewable within the e-chart portion of [facility] for each patient visit.
--- NOTE | 2017-10-26 14:54 | CT_ITS ---
STUDY: CT SOFT TISSUE NECK WITH CONTRAST REASON FOR EXAM: Female, 32 years old. Neck pain and swelling. RADIATION DOSAGE (If Supplied By Facility): CTDIvol = ( 21.09 ) mGy, DLP = ( 479.06 ) mGycm TECHNIQUE: The patient was scanned in a multi-detector CT scanner. High resolution transaxial imaging was performed following intravenous administration of 75 ml of Isovue 300 contrast material. Sagittal and coronal images were reconstructed. Individualized dose optimization techniques were used for this CT. COMPARISON: None. FINDINGS: Normal bilateral parotid glands. Normal bilateral urban anthropologist spaces. Normal bilateral parapharyngeal spaces. Normal bilateral carotid spaces. Normal bilateral sublingual and submandibular glands and spaces. Normal visualized nasopharynx. Normal retropharyngeal space. Normal perivertebral space. Normal visualized bilateral faucial tonsils. The visualized tongue, tongue base and oropharynx are normal. The visualized cervical lymph nodes (levels I-) are within normal size limits, and maintain normal morphology. There is no demonstrated solid or cystic mass lesion. There is no abnormal contrast enhancement. Normal epiglottis, bilateral vallecula and hypopharynx. The pre-epiglottic and paraglottic adipose spaces are normal. Normal visualized bilateral piriform sinuses, aryepiglottic folds, vocal cords, and arytenoid-cricoid articulations. Normal subglottic trachea. Normal bilateral lobes of the thyroid gland. Normal visualized pulmonary apices. Normal visualized paranasal sinuses. Normal visualized cervical spine. CT/Soft Tissue Neck WITH Contrast IMPRESSION: No CT evidence of acute disease. Electronically Signed: Darline Maurer MD at 5:37 EDT , Service support ,
[2017-10-28 12:42] LABS: Anion Gap 6 (5-15); BUN 9 mg/dL (7-18); BUN/Creat Ratio 12.2 RATIO (10-20); Calcium,Total 8.7 mg/dL (8.5-10.1); Chloride 107 mmol/L (98-107); Creatinine, Serum 0.74 mg/dL (0.55-1.02); EST Glomerular Filtration Rate 98 mL/min (>60); Est Glom Filt Rate - Afr Amer 119 mL/min (>60); Glucose 96 mg/dL (74-106); Potassium 4.7 mmol/L (3.5-5.1); Sodium Level 139 mmol/L (136-145); Thyroid Stim Hormone (TSH) 0.03 uIU/mL (0.358-3.74)
[2017-10-29 13:19] LABS: White Blood Count 4.9 K/mm3 (4.4-11.0)
[2017-10-29 13:20] LABS: Basophil% 0.6 % (0-1); Eosinophils% 8.1 % (0-5); Hematocrit 40.8 % (37-47); Hemoglobin 13.2 g/dl (12.0-15.0); Lymphocyte % 31.9 % (19-41); Mean Corp Hgb Conc 32.4 g/gl (32-36); Mean Corpuscular Hgb 26.6 pg (27.0-32.0); Mean Corpuscular Volume 82.1 fL (81-99); Mean Platelet Vol. 11.4 fl (6.2-12.0); Monocyte% 8.9 % (0-10); Neutrophil % 50.3 % (47-70); POSITIVE COUNT NO; POSITIVE DIFFERENTIAL NO; POSITIVE MORPHOLOGY NO; Platelet Count 185 K/mm3 (150-450); RBC Distribution Width CV 13.7 % (11.6-14.6); RBC Distribution Width SD 40.3 fl (35.1-43.9); Red Blood Count 4.97 M/mm3 (4.2-5.4)
[2017-10-29 13:21] LABS: Absolute Lymphocyte Count 1.57 X10^3/ul (0.83-4.51); Absolute Neutrophil Count 2.5 X10^3/uL (2.0-7.7); Basophil# 0.03 X10^3/uL; Lymphocyte # 1.57 X10^3/ul (4.0); Monocyte# 0.44 X10^3/uL; Neutrophil # 2.47 X10^3/uL (2.7-7.7)
== END 2017-10-26 16:00 | disposition home or self-care (01) ==
PROVIDERS: Emergency Provider Emergency Medicine; Family Provider Family Medicine; PCP Family Medicine
DX: R59.0 Localized enlarged lymph nodes (principal); R05 Cough; E03.9 Hypothyroidism, unspecified; G43.909 Migraine, unspecified, not intractable, without status migrainosus; F17.200 Nicotine dependence, unspecified, uncomplicated; Z79.899 Other long term (current) drug therapy
CPT/HCPCS: 70491; 80048; 84443; 85025; 99283; Q9967; A4216

== ENCOUNTER 2017-11-14 15:01 | Emergency (ER) | payer OTHER, SELFPAY ==
[2017-11-14 15:02] VITALS: BP 134/79; PULSE 98; RESP 16; TEMP 36.8; O2SAT 98; BMI 37.2
--- NOTE | 2017-11-14 16:52 | US_ITS ---
STUDY: ULTRASOUND TRANSVAGINAL CLINICAL: Female, 32 years old. Heavy bleeding for 11 weeks, right lower quadrant pain. TECHNIQUE: Transvaginal COMPARISON: None since the patient's last . FINDINGS: Normal anteverted, midline uterine size is 8.4 x 6.1 x 4.1 cm. There are no myometrial masses. Normal endometrial thickness measuring 2 mm. There are no endometrial masses, and there is no fluid in the endometrial cavity. A few subcentimeter nabothian cysts are noted in the uterine cervix. Normal right ovary, measuring 3.1 x 2.4 x 1.9 cm. There are multiple follicles without a dominant cyst. Normal left ovary, measuring 3.2 x 2.9 x 2.0 cm. There are multiple follicles without a dominant cyst. There is no free fluid in the pelvis. Polycystic ovary disease: No. US/Transvaginal Non- IMPRESSION: Normal pelvic ultrasound. Electronically Signed: Homero Laughlin MD at 18:11 EDT , Service support ,
--- NOTE | 2017-11-14 17:07 | ED.VISSUMM ---
- ER Visit Summary Date of Service: 11/14/17 Chief Complaint: Vaginal bleeding History of Present Illness: The patient is a [address] Will Lal. She is a who is 11 weeks from a vaginal delivery. She reports that her lochia had resolved and she was doing well. Approximately 2 weeks ago she had a normal.. However, she began having vaginal bleeding again 3 days ago. States that this is much heavier than her typical period. She is changing her pad every 1-2 hours. She reports that when she sits to urinate she is passing blood clots. Patient reports that she has a sharp pain in her right pelvic region that began 2 weeks ago. Is 9 out of 10 at worst and 5 out of 10 currently. Is worsened by movement or walking. Is relieved by remaining still. She denies any fever, chills, dysuria, or frequency. Physical Examination: Vitals: Stable. Afebrile. General: Well-nourished and well-developed. Head: Normocephalic atraumatic. Neck: Supple, no lymphadenopathy. No JVD. Nontender. Cardiovascular: Regular rate and rhythm. No murmurs. Respiratory: No respiratory distress. Clear to auscultation bilaterally. Abdominal: Soft, nontender, nondistended, normal bowel sounds. No guarding, rebound, or peritoneal signs. Back: Nontender. Extremities: Nontender, no edema. Skin: Normal color, no rash. Neurologic: Alert and oriented ?3. Cranial nerves II through XII are intact. Normal strength and sensation. Psych: Normal affect. Test Results: Transvaginal ultrasound is normal. CBC is remarkable for eosinophils of 7. Hemoglobin is 12.6. UA shows blood, but no evidence of infection. Emergency Department Course and Treatment: Patient was treated with oxycodone is resting comfortably. Treatment Plan: Patient was discussed with Dr. Will Lal. She asked that I tell her that following a vaginal delivery the first couple of periods may be heavy. She will be discharged naproxen for pain. Instructed to follow-up Dr. Moore in 1-2 months if her menses does not normalize. Return to the emergency department for any worsening symptoms. Disposition: To home in improved and stable condition. Impression: 1. Irregular vaginal bleeding. 2. 11 weeks status post vaginal delivery. This note was generated with Dragon dictation software. It may contain incorrect words, spelling, and punctuation that were not noted in review of the chart prior to signing ED Disposition - Plan for ED Patient: Disposition: Home or Assisted Living Chief Complaint: Vag Bleeding Instructions: ED Bleed Irregular Vaginal Prescriptions: Naproxen [Naprosyn] 500 mg PO BID #14 tablet Referrals: Cassidy Moore MD [STAFF PHYSICIAN] - Keep Edwin appointment
[2017-11-14] MEDS: oxyCODONE 5 MG Tablet 10 MG PO (17:34)
[2017-11-14 18:13] LABS: Bacteria 0 SEEN /hpf (None Seen); Color, Urine Yellow (Yellow); Glucose, Dipstick Normal (Normal); Ketone-Dipstick Negative (Negative); Leukocyte Esterase-Dipstick 25 /ul (Negative); Mucous, Urine 0 SEEN /hpf (<or=2+); Nitrite-Dipstick Negative (Negative); Occult Blood-Urine 250 /ul (Negative); Protein-Dipstick Negative (Negative); Specific Gravity, Urine 1.015 (1.002-1.030); Urine Bilirubin Dipstick Negative (Negative); Urine Clarity Sl. Cloudy (Clear); Urine Urobilinogen Normal (Normal)
[2017-11-14 18:18] LABS: Absolute Lymphocyte Count 1.61 X10^3/ul (0.83-4.51); Absolute Neutrophil Count 2.5 X10^3/uL (2.0-7.7); Basophil# 0.01 X10^3/uL; Basophil% 0.2 % (0-1); Eosinophil# 0.35 X10^3/uL; Eosinophils% 7.2 % (0-5); Hematocrit 39.8 % (37-47); Hemoglobin 12.6 g/dl (12.0-15.0); Lymphocyte # 1.61 X10^3/ul (4.0); Lymphocyte % 33.1 % (19-41); Mean Corp Hgb Conc 31.7 g/gl (32-36); Mean Corpuscular Hgb 25.8 pg (27.0-32.0); Mean Corpuscular Volume 81.6 fL (81-99); Mean Platelet Vol. 10.8 fl (6.2-12.0); Monocyte# 0.35 X10^3/uL; Monocyte% 7.2 % (0-10); Neutrophil # 2.53 X10^3/uL (2.7-7.7); Neutrophil % 52.1 % (47-70); Platelet Count 199 K/mm3 (150-450); RBC Distribution Width CV 13.9 % (11.6-14.6); RBC Distribution Width SD 41.4 fl (35.1-43.9); Red Blood Count 4.88 M/mm3 (4.2-5.4); White Blood Count 4.9 K/mm3 (4.4-11.0)
[2017-11-14 18:21] LABS: POSITIVE COUNT NO; POSITIVE DIFFERENTIAL NO; POSITIVE MORPHOLOGY NO
[2017-11-14 18:26] LABS: Red Blood Cells-Urine 25-50 SEEN /hpf (0-5); Squamous Epithelial Cells - UA 0-5 SEEN /hpf (5-10); White Blood Cells 0-5 SEEN /hpf (0-5)
[2017-11-14 19:03] VITALS: BP 119/80; PULSE 87; RESP 16; O2SAT 97
[2017-11-14 19:21] LABS: Pregnancy, Serum, hCG Quali. NEGATIVE Negative (0-9 Nonpreg)
== END 2017-11-14 19:04 | disposition home or self-care (01) ==
LOC: ED 17:02
PROVIDERS: Emergency Provider Emergency Medicine; Family Provider Family Medicine; PCP Family Medicine
DX: N92.6 Irregular menstruation, unspecified (principal); R11.0 Nausea; Z72.0 Tobacco use; Z79.899 Other long term (current) drug therapy
CPT/HCPCS: 76830; 81001; 84703; 85025; 93976; 99283; A4216

== ENCOUNTER 2017-11-26 20:33 | Emergency (ER) | payer OTHER, SELFPAY ==
[2017-11-26 20:34] VITALS: BP 148/78; PULSE 89; RESP 15; TEMP 37.2; O2SAT 100; BMI 37.4
--- NOTE | 2017-11-26 21:10 | CT_ITS ---
STUDY: CT ABDOMEN AND PELVIS WITHOUT CONTRAST REASON FOR EXAM: Female, 32 years old. Right-sided pain RADIATION DOSAGE (If Supplied By Facility): CTDIvol = ( 19.79 ) mGy, DLP = ( 1023.44 ) mGycm TECHNIQUE: Transaxial images were obtained from the dome of the diaphragm to the symphysis pubis without oral contrast, and without intravenous contrast. Sagittal and coronal images were reconstructed. Individualized dose optimization techniques were used for this CT. COMPARISON: Prior study of 05/27/2015 FINDINGS: The visualized lung bases are unremarkable. The visualized portions of the heart are within normal limits. Normal liver. The gallbladder is contracted. Normal spleen. Normal pancreas. Normal bilateral adrenal glands. Normal right kidney. Normal left kidney. Normal visualized stomach. Normal small intestine. Normal colon. The appendix is visualized and appears normal. Normal abdominal aorta. Normal inferior vena cava. Normal retroperitoneum. Normal urinary bladder. The uterus and ovaries appear normal. There is a small umbilical hernia containing fat. Normal osseous structures. CT/Abdomen/Pelvis without Cont IMPRESSION: Small fat-containing umbilical hernia. There is no evidence of free intra-abdominal or intrapelvic air, fluid, or inflammatory process. Electronically Signed: Keshav Steven MD at 22:50 EDT , Service support ,
[2017-11-26 21:25] LABS: Bacteria 0 SEEN /hpf (None Seen); Mucous, Urine 0 SEEN /hpf (<or=2+); Red Blood Cells-Urine 0 SEEN /hpf (0-5)
[2017-11-26] MEDS: 0.9% Normal Saline 1,000 ML 1000 ML IV (21:29)
[2017-11-26 21:31] LABS: Color, Urine Yellow (Yellow); Glucose, Dipstick Normal (Normal); Ketone-Dipstick Negative (Negative); Leukocyte Esterase-Dipstick 100 /ul (Negative); Nitrite-Dipstick Negative (Negative); Occult Blood-Urine 10 /ul (Negative); Protein-Dipstick 15 mg/dl (Negative); Urine Bilirubin Dipstick Negative (Negative); Urine Clarity Clear (Clear); Urine Urobilinogen Normal (Normal)
[2017-11-26 21:32] LABS: Absolute Neutrophil Count 3.1 X10^3/uL (2.0-7.7); Basophil# 0.04 X10^3/uL; Basophil% 0.6 % (0-1); Eosinophil# 0.32 X10^3/uL; Eosinophils% 5.1 % (0-5); Hematocrit 39.9 % (37-47); Hemoglobin 13.3 g/dl (12.0-15.0); Lymphocyte % 35.3 % (19-41); Mean Corp Hgb Conc 33.3 g/gl (32-36); Mean Corpuscular Hgb 26.7 pg (27.0-32.0); Mean Platelet Vol. 11.1 fl (6.2-12.0); Monocyte# 0.61 X10^3/uL; Monocyte% 9.8 % (0-10); Neutrophil # 3.05 X10^3/uL (2.7-7.7); Platelet Count 197 K/mm3 (150-450); RBC Distribution Width CV 14.6 % (11.6-14.6); RBC Distribution Width SD 41.9 fl (35.1-43.9); Red Blood Count 4.99 M/mm3 (4.2-5.4); White Blood Count 6.2 K/mm3 (4.4-11.0)
[2017-11-26 21:35] LABS: POSITIVE COUNT NO; POSITIVE DIFFERENTIAL NO; POSITIVE MORPHOLOGY NO
[2017-11-26 21:38] LABS: White Blood Cells 0-5 SEEN /hpf (0-5)
[2017-11-26 21:39] LABS: Squamous Epithelial Cells - UA 0-5 SEEN /hpf (5-10)
[2017-11-26 21:49] LABS: AST(SGOT) 37 U/L (15-37); Alanine Aminotransfer ALT/SGPT 42 U/L (13-56); Albumin, Serum 3.8 g/dL (3.2-5.0); Alkaline Phosphatase 69 U/L (45-117); Anion Gap 6 (5-15); BUN 11 mg/dL (7-18); BUN/Creat Ratio 10.7 RATIO (10-20); Bilirubin, Direct < 0.05 mg/dL (0.00-0.30); Calcium,Total 8.7 mg/dL (8.5-10.1); Chloride 105 mmol/L (98-107); Creatinine, Serum 1.03 mg/dL (0.55-1.02); EST Glomerular Filtration Rate 67 mL/min (>60); Est Glom Filt Rate - Afr Amer 81 mL/min (>60); Estimated Creatinine Clearance 71.86 ml/min; Globulin 4.1 g/dL (2.2-4.2); Glucose 87 mg/dL (74-106); Lipase 152 U/L (73-393); Potassium 4.2 mmol/L (3.5-5.1); Protein, Total 7.9 g/dL (6.4-8.2); Sodium Level 139 mmol/L (136-145)
[2017-11-26 21:56] LABS: Pregnancy, Serum, hCG Quali. NEGATIVE Negative (0-9 Nonpreg)
--- NOTE | 2017-11-26 23:56 | ED.DCSUM_ITS ---
- ER Visit Summary Date of Service: 11/26/17 Chief Complaint: Abdominal pain History of Present Illness: The patient is a [address] Whitman. She is a poor informant. She reports that she is abdominal pain for the past month. It is a constant pain that is gradually gotten worse. She describes it as a sharp, aching pain. It is 8 out of 10 at worst and 510 currently. It is worsened by standing. It is relieved by sitting or Tylenol. States this does not seem to be related to fatty foods. She reports that initially the pain was in the right upper quadrant. It is now moved and is in the left lower quadrant. Patient has associated nausea without vomiting. She reports she has had loose stools. No diarrhea. Her last bowel was today. She has had no melena hematochezia. No dysuria or frequency. She is 3 months . Physical Examination: Vitals: Stable. Afebrile. General: Well-nourished and well-developed. Head: Normocephalic atraumatic. Neck: Supple, no lymphadenopathy. No JVD. Nontender. Cardiovascular: Regular rate and rhythm. No murmurs. Respiratory: No respiratory distress. Clear to auscultation bilaterally. Abdominal: Soft, mild diffuse tenderness palpation that is worst in the right lower quadrant, nondistended, normal bowel sounds. No guarding, rebound, or peritoneal signs. No Johnston sign. Back: Nontender. Extremities: Nontender, no edema. Skin: Normal color, no rash. Neurologic: Alert and oriented ?3. Cranial nerves II through XII are intact. Normal strength and sensation. Psych: Normal affect. Test Results: CBC is normal. Chem-7 is more for creatinine 1.03. LFTs are normal. Lipase normal. UA is negative. test is negative. CT flank shows a normal appendix and a contracted gallbladder. No acute disease. Emergency Department Course and Treatment: Patient refused morphine and Phenergan here. An [facility] report was obtained which show she has had one prescription for opiates in the past year. Treatment Plan: Patient will be discharged with prescription for 12 [place] and Phenergan. Instructed follow-up Dr. Whitman within 3-5 days for further evaluation. Return to the emergency department for any worsening symptoms. Disposition: To home in improved and stable condition. Impression: 1. Abdominal pain, uncertain cause. This note was generated with [employer] dictation software. It may contain incorrect words, spelling, and punctuation that were not noted in review of the chart prior to signing ED Disposition - Plan for ED Patient: Disposition: Home or Assisted Living Chief Complaint: Abd Pain Instructions: ED Abdominal Pain Gallstone Poss Prescriptions: proMETHazine tablet [Phenergan] 25 mg PO Q6H PRN PRN #10 tablet PRN Reason: Nausea Hydrocodone/Acetaminophen [[place] 5-325 Tablet] 1 - 2 each PO 4X/DAY PRN PRN 3 Days #12 tablet PRN Reason: Pain Referrals: Nima Whitman MD [Primary Care Provider] - As soon as possible Erik Acevedo MD [STAFF PHYSICIAN] - 2 Days
[2017-11-26 23:59] VITALS: BP 126/73; PULSE 81; O2SAT 98
[2017-11-27] MEDS: proMETHazine 25 MG Tablet PO (00:03)
[2017-11-27] MEDS: HYDROcodone Bitartrate/Apap 5/325 Tablet PO (00:03)
[2017-11-27 00:05] VITALS: BP 126/73; PULSE 81; RESP 16; O2SAT 92
== END 2017-11-27 00:05 | disposition home or self-care (01) ==
LOC: ED 21:29
PROVIDERS: Emergency Provider Emergency Medicine; Family Provider Family Medicine; PCP Family Medicine
DX: R10.11 Right upper quadrant pain (principal); R10.32 Left lower quadrant pain; K82.0 Obstruction of gallbladder; E03.9 Hypothyroidism, unspecified; Z72.0 Tobacco use; Z79.899 Other long term (current) drug therapy
CPT/HCPCS: 74176; 80048; 80076; 81001; 83690; 84703; 85025; 96360; 96361; 99284; J7030; A4216

== ENCOUNTER 2017-12-29 05:08 | Emergency (ER) | payer OTHER, SELFPAY ==
[2017-12-29 05:08] VITALS: BP 140/105; PULSE 91; RESP 18; TEMP 36.4; O2SAT 100; BMI 38.7
--- NOTE | 2017-12-29 05:39 | ED.DCSUM_ITS ---
- ER Visit Summary Date of Service: 12/29/17 Chief Complaint: Headache History of Present Illness: The patient is a 32 F who presents with headache that has been constant for the past 3 weeks. Patient states this is worse than her typical migraine. Patient states her typical migraines are on her left side. Patient states this is generalized. Patient denies any photophobia or visual changes. Patient does admit to some nausea and vomiting. Patient also admits to subjective fevers. Patient also admits to some paresthesias over her extremities. Patient does admit to some sensitivity over her right temporal area. Patient states she did have a CT scan done approximately 3 months ago which was normal. Patient had a child 4 months ago. Patient states there were no complications during the or delivery. Physical Examination: Vital signs are stable. Patient is afebrile. Patient is in no acute distress. Cranial nerves II through XII are intact. Strength is 5/ 5 bilateral in the upper and lower extremities. Neck is supple. Trachea is midline. There is no JVD noted. Oral mucosa is pink and moist. Pupils are equal, round, and reactive to light bilateral. Extraocular muscles are intact. There is some tenderness over the right temporal area. There is no specific tenderness over the temporal artery. Heart was regular rate and rhythm. Lungs are clear and equal bilaterally. Abdomen is soft. Bowel sounds are normal. There is some mild right upper quadrant tenderness. There is no rebound or guarding noted. Test Results: CBC, basic metabolic profile, and sed rate were obtained and were all within normal limits. Emergency Department Course and Treatment: Patient was given IV fluids here. Patient requested any medication be given orally. Patient was given Reglan and Benadryl orally. Patient was also given a dose of Maxalt orally. Patient states her headache is starting to improve. She was given a dose of ibuprofen here. Patient states she is allergic to Naprosyn and Toradol but can take ketoprofen. Patient was instructed to rest in a dark quiet room. Patient was instructed to follow-up with her primary care physician in 5-7 days. Patient understood and was agreeable with the plan. All questions were answered. Disposition: Discharge home Impression: Migraine headache This note was generated with [employer] dictation software. It may contain incorrect words, spelling, and punctuation that were not noted in review of the chart prior to signing ED Disposition - Plan for ED Patient: Disposition: Home or Assisted Living Chief Complaint: Headache Diagnosis: Migraine headache without aura Instructions: ED Headache Migraine Referrals: Nima Whitman MD [Primary Care Provider] -
[2017-12-29] MEDS: DiphenhydrAMINE 25 MG Capsule PO (05:50)
[2017-12-29] MEDS: Metoclopramide 10 MG/10 ML UDC PO (05:50)
[2017-12-29] MEDS: Rizatriptan Benzoate 5 MG Tablet PO (05:51)
[2017-12-29 06:16] LABS: Absolute Lymphocyte Count 1.66 X10^3/ul (0.83-4.51); Absolute Neutrophil Count 2.5 X10^3/uL (2.0-7.7); Basophil# 0.02 X10^3/uL; Basophil% 0.4 % (0-1); Eosinophil# 0.35 X10^3/uL; Hematocrit 42.2 % (37-47); Hemoglobin 13.8 g/dl (12.0-15.0); Lymphocyte # 1.66 X10^3/ul (4.0); Lymphocyte % 33.2 % (19-41); Mean Corp Hgb Conc 32.7 g/gl (32-36); Mean Corpuscular Hgb 26.4 pg (27.0-32.0); Mean Corpuscular Volume 80.8 fL (81-99); Mean Platelet Vol. 10.9 fl (6.2-12.0); Monocyte# 0.44 X10^3/uL; Monocyte% 8.8 % (0-10); Neutrophil # 2.52 X10^3/uL (2.7-7.7); Neutrophil % 50.4 % (47-70); Platelet Count 182 K/mm3 (150-450); RBC Distribution Width CV 14.7 % (11.6-14.6); RBC Distribution Width SD 43.2 fl (35.1-43.9); Red Blood Count 5.22 M/mm3 (4.2-5.4)
[2017-12-29 06:22] LABS: POSITIVE COUNT NO; POSITIVE DIFFERENTIAL NO; POSITIVE MORPHOLOGY NO
[2017-12-29 06:27] LABS: Anion Gap 6 (5-15); BUN 13 mg/dL (7-18); BUN/Creat Ratio 18.3 RATIO (10-20); Calcium,Total 8.7 mg/dL (8.5-10.1); Chloride 108 mmol/L (98-107); Creatinine, Serum 0.71 mg/dL (0.55-1.02); EST Glomerular Filtration Rate 102 mL/min (>60); Est Glom Filt Rate - Afr Amer 124 mL/min (>60); Estimated Creatinine Clearance 104.25 ml/min; Glucose 94 mg/dL (74-106); Potassium 3.9 mmol/L (3.5-5.1); Sodium Level 140 mmol/L (136-145)
[2017-12-29 06:37] LABS: Erythrocyte Sedimentation Rate 4 mm/hr (0-20)
[2017-12-29 07:24] VITALS: BP 126/64; PULSE 78; RESP 14; O2SAT 98
== END 2017-12-29 07:24 | disposition home or self-care (01) ==
PROVIDERS: Emergency Provider Emergency Medicine; Family Provider Family Medicine; PCP Family Medicine
DX: G43.909 Migraine, unspecified, not intractable, without status migrainosus (principal); M54.2 Cervicalgia; R20.2 Paresthesia of skin; E05.90 Thyrotoxicosis, unspecified without thyrotoxic crisis or storm; Z72.0 Tobacco use; Z88.6 Allergy status to analgesic agent; Z79.899 Other long term (current) drug therapy
CPT/HCPCS: 36415; 80048; 85025; 85652; 99282

== ENCOUNTER 2018-01-07 23:04 | Emergency (ER) | payer OTHER, SELFPAY ==
[2018-01-07 23:05] VITALS: BP 151/114; PULSE 94; RESP 22; TEMP 37.1; O2SAT 100; BMI 37.4
--- NOTE | 2018-01-07 23:25 | ED.VISSUMM ---
- ER Visit Summary Date of Service: 01/07/18 Chief Complaint: Abdominal pain with nausea and vomiting History of Present Illness: The patient is a 32 F past medical history of hypothyroidism complaining of right-sided abdominal pain with an hour ago. She ate around 5:00 and had no problems. She has had a recent CAT scan this year her abdomen which was unremarkable. She states she is also had an ultrasound showing no abnormality of her gallbladder and was supposed to follow-up and get a HIDA scan but was able do that. When the pain started she started having nausea and vomiting. She denies any hematemesis. Denies any fever. Denies any dysuria. She has had some recent constipation. No diarrhea or melena. She denies any abdominal trauma. She has had episodes like this before. Physical Examination: Young female no acute distress. Vital signs are stable and her blood pressure elevated at 151/114. She is afebrile. H EENT exam unremarkable. Moist membranes. Neck nontender. No lymphadenopathy. Lungs clear to auscultation bilaterally. Heart regular rhythm no murmur. Abdomen tenderness on the right side of her abdomen is right upper quadrant and above McBurney's point. She has no Johnston sign. She has no McBurney's point tenderness. No signs of trauma. Abdomen is soft. Positive bowel sounds. No hernias or masses. She is moving all 4 extremities. They are neurovascularly intact. Back nontender. Neurologically she is awake and alert with no focal motor deficits. Test Results: CBC normal with a white count of 6. Normal hemoglobin. Electrolytes normal normal gap of 6. Normal creatinine. Liver enzymes are all normal. Lipase is normal 149. UA is normal. Serum test is negative. I reviewed the patient's prior testing at [facility] and she has had a recent negative CT of the abdomen and pelvis. In October 2016 had a negative gallbladder ultrasound. She is also had recently a negative pelvic ultrasound. Emergency Department Course and Treatment: Patient was offered and refused any IV medications. She was offered IV Phenergan and IV morphine both which she refused. She did not want any oral medications either. Treatment Plan: Multiple repeat exams patient is doing well. I do not have a specific diagnosis for her abdominal pain. She will need to follow-up with her primary care physician. Disposition: Discharged Impression: Right-sided abdominal pain of uncertain etiology Nausea and vomiting This note was generated with Dragon dictation software. It may contain incorrect words, spelling, and punctuation that were not noted in review of the chart prior to signing ED Disposition - Plan for ED Patient: Chief Complaint: Abd Pain Referrals: Nima Whitman MD [Primary Care Provider] -
[2018-01-07 23:27] LABS: Bacteria 0 SEEN /hpf (None Seen); Mucous, Urine 0 SEEN /hpf (<or=2+); Red Blood Cells-Urine 0 SEEN /hpf (0-5)
[2018-01-07 23:31] LABS: Color, Urine Yellow (Yellow); Glucose, Dipstick Normal (Normal); Ketone-Dipstick Negative (Negative); Leukocyte Esterase-Dipstick 25 /ul (Negative); Nitrite-Dipstick Negative (Negative); Occult Blood-Urine Negative /ul (Negative); Protein-Dipstick 15 mg/dl (Negative); Urine Bilirubin Dipstick Negative (Negative); Urine Clarity Clear (Clear); Urine Urobilinogen Normal (Normal)
[2018-01-07] MEDS: 0.9% Normal Saline 1,000 ML 1000 ML IV (23:35)
--- NOTE | 2018-01-07 23:36 | ED.RN ---
PT REFUSED ALL IV MEDICATIONS.
[2018-01-07 23:39] LABS: Absolute Lymphocyte Count 2.38 X10^3/ul (0.83-4.51); Absolute Neutrophil Count 2.9 X10^3/uL (2.0-7.7); Basophil# 0.02 X10^3/uL; Basophil% 0.3 % (0-1); Eosinophil# 0.29 X10^3/uL; Eosinophils% 4.8 % (0-5); Hematocrit 40.1 % (37-47); Hemoglobin 13.3 g/dl (12.0-15.0); Lymphocyte # 2.38 X10^3/ul (4.0); Lymphocyte % 39.4 % (19-41); Mean Corp Hgb Conc 33.2 g/gl (32-36); Mean Corpuscular Hgb 26.8 pg (27.0-32.0); Mean Corpuscular Volume 80.8 fL (81-99); Monocyte# 0.44 X10^3/uL; Monocyte% 7.3 % (0-10); Neutrophil # 2.91 X10^3/uL (2.7-7.7); Neutrophil % 48.2 % (47-70); Platelet Count 195 K/mm3 (150-450); RBC Distribution Width CV 14.7 % (11.6-14.6); RBC Distribution Width SD 42.9 fl (35.1-43.9); Red Blood Count 4.96 M/mm3 (4.2-5.4)
[2018-01-07 23:42] LABS: POSITIVE COUNT NO; POSITIVE DIFFERENTIAL NO; POSITIVE MORPHOLOGY NO
[2018-01-07 23:42] LABS: Squamous Epithelial Cells - UA 10-25 SEEN /hpf (5-10); White Blood Cells 0-5 SEEN /hpf (0-5)
[2018-01-07 23:58] LABS: AST(SGOT) 20 U/L (15-37); Alanine Aminotransfer ALT/SGPT 34 U/L (13-56); Albumin, Serum 3.9 g/dL (3.2-5.0); Alkaline Phosphatase 76 U/L (45-117); Anion Gap 6 (5-15); BUN 12 mg/dL (7-18); BUN/Creat Ratio 12.8 RATIO (10-20); Bilirubin, Direct 0.09 mg/dL (0.00-0.30); Calcium,Total 8.7 mg/dL (8.5-10.1); Chloride 105 mmol/L (98-107); Creatinine, Serum 0.94 mg/dL (0.55-1.02); EST Glomerular Filtration Rate 74 mL/min (>60); Est Glom Filt Rate - Afr Amer 90 mL/min (>60); Estimated Creatinine Clearance 78.75 ml/min; Glucose 102 mg/dL (74-106); Lipase 149 U/L (73-393); Potassium 3.6 mmol/L (3.5-5.1); Protein, Total 7.9 g/dL (6.4-8.2); Sodium Level 138 mmol/L (136-145)
[2018-01-08 00:02] LABS: Pregnancy, Serum, hCG Quali. NEGATIVE Negative (0-9 Nonpreg)
--- NOTE | 2018-01-08 00:15 | ED.DEP ---
ED Disposition - Plan for ED Patient: Disposition: Home or Assisted Living Chief Complaint: Abd Pain Instructions: ED Abdominal Pain Unkn Cause Referrals: Nima Whitman MD [Primary Care Provider] - 1-2 Days if not improving Additional Instructions: Plenty of fluids and rest. Usual nausea medication as needed. Return if feeling worse. All your labs tonight were normal. You had a recent CAT scan and ultrasound of your gallbladder last year all of which were negative.
[2018-01-08 00:25] VITALS: BP 100/57; PULSE 63; RESP 15; O2SAT 100
== END 2018-01-08 00:29 | disposition home or self-care (01) ==
PROVIDERS: Emergency Provider Emergency Medicine; Family Provider Family Medicine; PCP Family Medicine
DX: R10.11 Right upper quadrant pain (principal); R11.2 Nausea with vomiting, unspecified; R03.0 Elevated blood-pressure reading, without diagnosis of hypertension; E03.9 Hypothyroidism, unspecified; Z72.0 Tobacco use; Z79.899 Other long term (current) drug therapy
CPT/HCPCS: 80048; 80076; 81001; 83690; 84703; 85025; 96360; 99283; J7030; A4216

== ENCOUNTER 2018-01-09 11:23 | Emergency (ER) | payer OTHER, SELFPAY ==
[2018-01-09 11:23] VITALS: BP 134/67; PULSE 91; RESP 18; TEMP 36.9; O2SAT 98; BMI 37.3
[2018-01-09] MEDS: 0.9% Normal Saline 1,000 ML 999 ML IV (12:23)
[2018-01-09] MEDS: Metoclopramide 10 MG/2 ML Vial IV (12:26)
[2018-01-09] MEDS: DiphenhydrAMINE 50 MG/ML Syringe 25 MG IV (12:26)
[2018-01-09] MEDS: LORazepam 2 MG/ML Syringe 1 MG IV (12:27)
[2018-01-09 13:44] VITALS: BP 125/78; PULSE 80; RESP 14; O2SAT 98
--- NOTE | 2018-01-09 14:34 | ED.VISSUMM ---
- ER Visit Summary Date of Service: 01/09/18 Chief Complaint: Severe intractable bilateral headache History of Present Illness: The patient is a 32 F who presents because of severe headache. She has had headaches since delivery of her child 4 months ago. There is a positional component. She does complain of photophobia and sonophobia. She also complains of change in vision with binocular blurred vision. She states her insurance declined a outpatient CAT scan 2 months ago. She also complains of neck pain as well as nausea and vomiting. She denies fever, chills or night sweats. She denies weight gain or weight loss. She denies any auditory symptoms. She does complain of photophobia and change in vision. She denies any cardiorespiratory symptoms. She denies any urologic symptoms. She denies myalgias arthralgias or low back pain. She denies any skin lesions or rash. She denies any weakness, paresthesia, anesthesia motor weakness. She denies any problems with balance. She denies bruising easily or any problems with bleeding. She denies any allergic type symptoms. Physical Examination: Patient vital signs are normal. She is afebrile. She grabbed her head several times during the history. She also sighed. Head is atraumatic normocephalic. Pupils are equal round reactive. Extraocular muscles are intact. TMs are pearly white with landmarks noted. Nares patent with no drainage. Posterior pharynx without erythema or exudate. Uvula is midline. There is no dysphonia or dysphasia. Trachea is midline. There is no stridor with auscultation of the neck. Cup-to-disc ratio is normal on funduscopic exam. Venous pulsations noted bilaterally. There is no evidence of papilledema. I was able to perform a direct funduscopic exam with no evidence of photophobia. Heart is regular without murmur, gallop or rub. S1 and S2 are normal. Lungs are clear to auscultation with good movement of air bilaterally. Abdomen is soft nontender. Patient is alert and oriented ?3. Motor is 5 over 5. Sensory is intact. DTRs are symmetric with no clonus or Babinski sign. Cranial 2 through 12 are intact. Cerebellar testing is normal. Test Results: MRI and MRV to assess for venous sinus thrombosis and she is and the headache is positional as well as to assess for any abnormality i.e. multiple sclerosis, tumor. The MRI and MRV were read by neuroradiologist as negative. Emergency Department Course and Treatment: IV was ordered as well as IV blood work. Patient declined all IV blood work. After discussion as to why/rationale for meds and studies regarding p.o. versus IM versus IV meds she consented to IV meds. Because she reported claustrophobia she received 1 mg Ativan. Treatment Plan: Patient was informed of results. She was informed that I am uncertain what to discharge her with. She was told there are other meds which could be tried. She declined and wishes to go home. Of note she had to be awakened from sleep. During my discussion with her she looked repeatedly at the clock and made grimacing facial expressions. Disposition: Discharged home to follow-up with PCP and keep neurologist appointment Impression: Bilateral headache of unknown etiology This note was generated with [employer] dictation software. It may contain incorrect words, spelling, and punctuation that were not noted in review of the chart prior to signing ED Disposition - Plan for ED Patient: Disposition: Home or Assisted Living Chief Complaint: Headache Instructions: ED Cephalgia Unspecified Referrals: Nima Whitman MD [Primary Care Provider] - 3-5 Days if not improving Additional Instructions: Keep appointment with neurologist scheduled January
[2018-01-09 15:02] VITALS: BP 125/77; PULSE 85; RESP 14; O2SAT 98
== END 2018-01-09 15:02 | disposition home or self-care (01) ==
PROVIDERS: Emergency Provider Emergency Medicine; Family Provider Family Medicine; PCP Family Medicine
DX: G43.909 Migraine, unspecified, not intractable, without status migrainosus (principal); M54.2 Cervicalgia; E66.9 Obesity, unspecified; Z79.899 Other long term (current) drug therapy; F40.240 Claustrophobia
CPT/HCPCS: 70544; 70551; 96361; 96374; 96375; 99283; J7030; A4216

== ENCOUNTER → 2018-03-23 11:00 | Outpatient (CLI) | payer OTHER, SELFPAY ==
[2018-03-23 13:22] LABS: Estradiol 51.7 pg/mL; Follicle Stimulating Hormone 5.8 mIU/mL; Prolactin 5.2 ng/mL; T4 Free Direct 1.19 ng/dL (0.76-1.46); Thyroid Stim Hormone (TSH) 3.98 uIU/mL (0.358-3.74)
[2018-03-24 20:08] LABS: DHEA Sulfate 269.4 ug/dL (84.8-378.0)
[2018-03-26 11:45] LABS: Testosterone Free 2.9 pg/mL (0.0-4.2)
[2018-03-28 09:31] LABS: 17-Hydroxyprogesterone 77 ng/dL (.)
== END ==
PROVIDERS: Family Provider Family Medicine; PCP Family Medicine; Referring Provider Obstetrics & Gynecology; Visit Provider Obstetrics & Gynecology
DX: N91.4 Secondary oligomenorrhea (principal); E03.9 Hypothyroidism, unspecified
CPT/HCPCS: 36415; 82627; 82670; 83001; 83498; 84146; 84402; 84439; 84443; 82626

== ENCOUNTER 2018-09-13 09:34 | Emergency (ER) | payer OTHER, SELFPAY ==
[2018-06-19 14:14] VITALS: BMI 41.1
[2018-09-13 09:35] VITALS: BP 146/82; PULSE 126; RESP 20; TEMP 36.3; BMI 37.1
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
[2018-09-13 11:07] VITALS: RESP 17
== END 2018-09-13 11:07 | disposition home or self-care (01) ==
PROVIDERS: Emergency Provider Emergency Medicine; Family Provider Family Medicine; PCP Family Medicine
DX: S09.90XA Unspecified injury of head, initial encounter (principal); W22.8XXA Striking against or struck by other objects, initial encounter; Y93.9 Activity, unspecified; Y92.9 Unspecified place or not applicable; Y99.9 Unspecified external cause status; G43.909 Migraine, unspecified, not intractable, without status migrainosus; Z72.0 Tobacco use; Z79.899 Other long term (current) drug therapy
CPT/HCPCS: 70450; 99282

== ENCOUNTER → 2018-09-27 16:20 | Outpatient (CLI) | payer OTHER, SELFPAY ==
[2018-09-27 09:42] VITALS: BMI 37.1
[2018-09-27 21:14] LABS: Chlamydia Trachomatis by PCR Negative (Negative); Neisserai gonorrhoeae by PCR Negative (Negative); Probe Check PASS; Sample Adequacy Control PASS; Specimen Processing Control PASS
[2018-10-04 14:17] LABS: HPV APTIMA, High Risk Negative (Negative)
== END ==
PROVIDERS: Family Provider Family Medicine; PCP Family Medicine; Referring Provider Nurse Practitioner Women's Health; Visit Provider Nurse Practitioner Women's Health
DX: Z12.4 Encounter for screening for malignant neoplasm of cervix (principal); N92.6 Irregular menstruation, unspecified
CPT/HCPCS: 87070; 87106; 87205; 87491; 87591; 87624; 88175; G0145

== ENCOUNTER → 2018-10-04 12:30 | Outpatient (CLI) | payer OTHER, SELFPAY ==
[2018-06-19 14:14] VITALS: BMI 41.1
[2018-09-27 09:42] VITALS: BMI 37.1
--- NOTE | 2018-10-04 12:32 | US_ITS ---
STUDY: ULTRASOUND OF THE FEMALE PELVIS - COMPLETE REASON FOR EXAM: Female, 33 years old. Abnormal uterine bleeding. LMP: October 04, 2018 TECHNIQUE: Transabdominal and Transvaginal TECHNICAL QUALITY: Adequate. COMPARISON: None. FINDINGS: The uterus is anteverted and is in a midline position. The uterus measures 8.5 cm x 5.3 cm x 4.0 cm. There is a Nabothian cyst of the cervix. The endometrium measures 7.0 mm in thickness, and is hyperechoic. There is no demonstrated endometrial mass. There is no demonstrated myometrial mass. I.U.D. - The patient does not have an I.U.D. The right ovary is visualized. The right ovary measures 3.7 cm x 2.2 cm x 2.0 cm. There is no right ovarian cyst or ovarian mass. There is no visualized right adnexal mass or complex lesion. There is normal arterial and normal venous vascularity. The left ovary is visualized. The left ovary measures 2.2 cm x 2.0 cm x 2.5 cm. There is no left ovarian cyst or ovarian mass. There is no visualized left adnexal mass or complex lesion. There is normal arterial and normal venous vascularity. There is no fluid in the cul-de-sac. The pre void volume of the bladder was 100 ml. Polycystic ovary disease: No. US/Transvaginal Non- IMPRESSION: Normal female pelvis. Electronically Signed: Christiano Eduardo, at 15:05 EDT , Service support ,
--- NOTE | 2018-10-04 12:32 | US_ITS ---
STUDY: ULTRASOUND OF THE FEMALE PELVIS - COMPLETE REASON FOR EXAM: Female, 33 years old. Abnormal uterine bleeding. LMP: October 04, 2018 TECHNIQUE: Transabdominal and Transvaginal TECHNICAL QUALITY: Adequate. COMPARISON: None. FINDINGS: The uterus is anteverted and is in a midline position. The uterus measures 8.5 cm x 5.3 cm x 4.0 cm. There is a Nabothian cyst of the cervix. The endometrium measures 7.0 mm in thickness, and is hyperechoic. There is no demonstrated endometrial mass. There is no demonstrated myometrial mass. I.U.D. - The patient does not have an I.U.D. The right ovary is visualized. The right ovary measures 3.7 cm x 2.2 cm x 2.0 cm. There is no right ovarian cyst or ovarian mass. There is no visualized right adnexal mass or complex lesion. There is normal arterial and normal venous vascularity. The left ovary is visualized. The left ovary measures 2.2 cm x 2.0 cm x 2.5 cm. There is no left ovarian cyst or ovarian mass. There is no visualized left adnexal mass or complex lesion. There is normal arterial and normal venous vascularity. There is no fluid in the cul-de-sac. The pre void volume of the bladder was 100 ml. Polycystic ovary disease: No. US/Pelvic (Non ) IMPRESSION: Normal female pelvis. Electronically Signed: Christiano Eduardo, at 15:05 EDT , Service support ,
== END ==
PROVIDERS: Family Provider Family Medicine; PCP Family Medicine; Referring Provider Nurse Practitioner Women's Health; Visit Provider Nurse Practitioner Women's Health
DX: N92.1 Excessive and frequent menstruation with irregular cycle (principal)
CPT/HCPCS: 76830; 76856; 93976

== ENCOUNTER → 2018-10-09 10:55 | Outpatient (CLI) | payer OTHER, SELFPAY ==
[2018-09-27 09:42] VITALS: BMI 37.1
--- NOTE | 2018-10-09 10:59 | BI_ITS ---
MAMMOGRAPHY - BILATERAL SCREENING REASON FOR EXAM: Female, 33 years old. Routine annual screening examination. PERTINENT HISTORY: Non-contributory. History of melanoma resection. TECHNIQUE: Digital bilateral breast alex (3D mammographic acquisition) in the CC and MLO projections. 2-D mediolateral oblique (MLO) and craniocaudad (CC) views of both breasts were obtained. CAD: Full Field Digital Mammography with Computer Added Detection was performed. COMPARISON: Comparison is made with prior outside examination dated August 27, 2013. FINDINGS: Breast Composition: There are scattered areas of fibroglandular density. There are no dominant masses or suspicious calcifications. Benign-appearing axillary lymph nodes. No other significant abnormalities are identified. There has been no significant change since the prior study. BI/SCREEN MAMM (CAD) W/ALEX BILAT IMPRESSION: Stable bilateral screening mammogram. Yearly follow-up mammogram recommended. (A) ASSESSMENT CATEGORY: BIRADS Category 2: Benign. A letter regarding these results will be sent to the patient by the facility within 30 days. Approximately 10% of breast cancers are not detected by mammography. A normal mammogram should not delay biopsy of a clinically suspicious abnormality. [id number] Electronically Signed: Christiano Eduardo, at 13:51 EDT , Service support ,
== END ==
PROVIDERS: Family Provider Family Medicine; PCP Family Medicine; Referring Provider Nurse Practitioner Women's Health; Visit Provider Nurse Practitioner Women's Health
DX: Z12.31 Encounter for screening mammogram for malignant neoplasm of breast (principal); Z85.820 Personal history of malignant melanoma of skin
CPT/HCPCS: 77063; 77067

== ENCOUNTER 2018-12-23 12:25 | Emergency (ER) | payer OTHER, SELFPAY ==
[2018-09-27 09:42] VITALS: BMI 37.1
[2018-12-23 12:36] VITALS: BP 121/82; PULSE 75; RESP 18; TEMP 36.6; O2SAT 99; BMI 37.1
--- NOTE | 2018-12-23 13:13 | EKG12_ITS ---
Test Reason : CP Blood Pressure : / mmHG Vent. Rate : 064 BPM Atrial Rate : 064 BPM P-R Int : 158 ms QRS Dur : 086 ms QT Int : 400 ms P-R-T Axes : 024 068 046 degrees QTc Int : 412 ms Normal sinus rhythm with sinus arrhythmia Normal ECG Confirmed by ETHEL HARTMAN, PEARL ([id number]), slot editor JULIO HDEZ ([id number]) on 12/26/2018 10:16:47 AM Referred By: ZULEYKA Confirmed By:PEARL DAVENPORT MD
--- NOTE | 2018-12-23 13:13 | RAD_ITS ---
STUDY: X-RAY CHEST REASON FOR EXAM: Female, 33 years old. Bilateral leg pain and shortness of breath TECHNIQUE: Single view of the chest was obtained COMPARISON: November 09, 2016 chest radiograph FINDINGS: The lungs are clear and expanded. There is no demonstrated pleural abnormality. Cardiac size is stable Normal mediastinum and tho. Normal visualized pulmonary arteries. Normal visualized aortic arch and descending thoracic aorta. No acute osseous abnormalities. RAD/Chest 1 View (Portable) IMPRESSION: No acute cardiopulmonary pathology. Electronically Signed: Baljinder Da Silva, at 13:32 EDT Tel , Service support ,
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
[2018-12-23 13:32] LABS: Absolute Lymphocyte Count 1.28 X10^3/uL (0.83-4.51); Basophil# 0.03 X10^3/uL; Basophil% 0.6 % (0-1); Eosinophil# 0.25 X10^3/uL; Hematocrit 40.7 % (37-47); Hemoglobin 13.1 g/dL (12.0-15.0); Lymphocyte # 1.28 X10^3/ul (4.0); Lymphocyte % 25.4 % (19-41); Mean Corp Hgb Conc 32.2 g/dL (32-36); Mean Corpuscular Hgb 27.5 pg (27.0-32.0); Mean Corpuscular Volume 85.3 fL (81-99); Monocyte# 0.47 X10^3/uL; Monocyte% 9.3 % (0-10); NRBC Flagged by Analyzer 0 % (0-5); Neutrophil % 59.5 % (47-70); Platelet Count 157 K/mm3 (150-450); RBC Distribution Width CV 13.6 % (11.6-14.6); RBC Distribution Width SD 42.5 fl (35.1-43.9); Red Blood Count 4.77 M/mm3 (4.2-5.4)
[2018-12-23 13:43] LABS: D-Dimer Quantitative (DVT/PE) 0.31 FEU/ug/m (0.27-0.49)
[2018-12-23 13:49] LABS: Anion Gap 3 (5-15); BUN 9 mg/dL (7-18); BUN/Creat Ratio 10.9 RATIO (10-20); Calcium,Total 8.7 mg/dL (8.5-10.1); Chloride 107 mmol/L (98-107); Creatinine, Serum 0.83 mg/dL (0.55-1.02); EST Glomerular Filtration Rate 85 mL/min (>60); Est Glom Filt Rate - Afr Amer 103 mL/min (>60); Estimated Creatinine Clearance 91.94 ml/min; Glucose 108 mg/dL (74-106); Potassium 3.8 mmol/L (3.5-5.1); Sodium Level 138 mmol/L (136-145)
[2018-12-23 14:02] VITALS: BP 109/61; PULSE 76; RESP 21; O2SAT 98
--- NOTE | 2018-12-23 15:02 | DCINST.ED_ITS ---
ED Disposition - Plan for ED Patient: Diagnosis: Palpitations Instructions: CHEST PAIN, Uncertain Cause, Palpitations Referrals: Nima Whitman MD [Primary Care Provider] - Additional Instructions: Please also contact your septic tank service technician office for further management
== END 2018-12-23 15:11 | disposition home or self-care (01) ==
LOC: ED 13:34
PROVIDERS: Emergency Provider Emergency Medicine; Family Provider Family Medicine; PCP Family Medicine
DX: R00.2 Palpitations (principal); M62.831 Muscle spasm of calf; E03.9 Hypothyroidism, unspecified; R45.0 Nervousness; F17.200 Nicotine dependence, unspecified, uncomplicated; Z88.0 Allergy status to penicillin; Z88.8 Allergy status to other drugs, medicaments and biological substances; Z91.040 Latex allergy status; Z79.899 Other long term (current) drug therapy
CPT/HCPCS: 71045; 80048; 84484; 85025; 85379; 93005; 99284; A4216

== ENCOUNTER 2019-01-15 01:25 | Emergency (ER) | payer OTHER, SELFPAY ==
[2019-01-15 01:26] VITALS: BP 118/92; PULSE 91; RESP 16; TEMP 37.6; O2SAT 98; BMI 38.4
[2019-01-15 01:32] VITALS: TEMP 37.6
--- NOTE | 2019-01-15 02:06 | ED.VIS.GEN ---
History of Present Illness Chief Complaint: Dental Narrative: Patient is a 33-year-old female who presents with dental pain. She was treated with clindamycin and March but did not complete the course when she started feeling better. She developed recurrent pain about 4 days ago and began taking some leftover clindamycin but not the instructed dosing. She has been taking as instructed originally for the last couple of days however. She has not had any improvement. She denies fevers nausea vomiting. Past Medical History - Allergies and Home Meds Allergies/Adverse Reactions: Allergies latex Allergy (Verified 01/15/19 01:32) Itching naproxen Allergy (Verified 01/15/19 01:32) Unknown Penicillins [PCN] Allergy (Verified 01/15/19 01:32) Rash ketorolac [From Toradol] Adverse Reaction (Verified 01/15/19 01:32) Other unknown, pt can't remember reaction ondansetron HCl [From Zofran (as hydrochloride)] Adverse Reaction (Verified 01/15/19 01:32) Other headaches Primary Care Physician: Nima Whitman MD [Primary Care Provider] - Smoking Status: Current every day smoker Review of Systems All systems negative except as indicated Physical Exam Vital Signs/Narrative: Vital Signs Temp Pulse Resp BP Pulse Ox 01/15/19 01:32 99.6 F H 01/15/19 01:26 99.7 F H 91 16 118/92 H 98 Head: Normocephalic Eyes: EOMI ENT: Moist mucous membranes, - - Widespread dental decay, dental tenderness on percussion of the left maxillary canine, severe decay of the left maxillary second premolar and first molar no focal abscess amenable to incision and drainage Cardiovascular: Regular rate Respiratory: No distress Diagnostic/Tx/Re-eval - Medical Decision Making Although the inefficacy of the clindamycin may have been due to inappropriate dosing we will switch to another agent given lack of improvement. Patient prescribed Flagyl. She was advised to follow-up with dentistry and was discharged home. ED Disposition - Plan for ED Patient: Disposition: Home or Assisted Living Diagnosis: Odontalgia Instructions: Dental Abscess Prescriptions: metroNIDAZOLE [Flagyl] 500 mg PO Q6H #40 tablet metroNIDAZOLE [Flagyl] 500 mg PO Q8H #30 tab Prescription Printed Referrals: Nima Whitman MD [Primary Care Provider] -
--- NOTE | 2019-01-15 02:20 | ED.RN ---
PT REQUEST PAIN MEDS SHE HAS AN ALLERGY TO, MD AWARE NO FURTHER ORDERS AT THIS TIME.
== END 2019-01-15 02:12 | disposition home or self-care (01) ==
PROVIDERS: Emergency Provider Emergency Medicine; Family Provider Family Medicine; PCP Family Medicine
DX: K08.89 Other specified disorders of teeth and supporting structures (principal); F17.200 Nicotine dependence, unspecified, uncomplicated; Z79.899 Other long term (current) drug therapy; Z91.040 Latex allergy status; Z88.0 Allergy status to penicillin; Z88.8 Allergy status to other drugs, medicaments and biological substances
CPT/HCPCS: 99282

== ENCOUNTER → 2019-04-09 10:41 | Outpatient (CLI) | payer OTHER, SELFPAY ==
[2019-04-09 11:20] LABS: Absolute Lymphocyte Count 1.69 X10^3/uL (0.83-4.51); Absolute Neutrophil Count 2.9 X10^3/uL (2.0-7.7); Basophil# 0.04 X10^3/uL; Basophil% 0.7 % (0-1); Eosinophil# 0.24 X10^3/uL; Eosinophils% 4.5 % (0-5); Hematocrit 45.4 % (37-47); Hemoglobin 14.4 g/dL (12.0-15.0); Lymphocyte # 1.69 X10^3/ul (4.0); Lymphocyte % 31.5 % (19-41); Mean Corp Hgb Conc 31.7 g/dL (32-36); Mean Corpuscular Hgb 27.6 pg (27.0-32.0); Mean Platelet Vol. 11.5 fl (6.2-12.0); Monocyte# 0.47 X10^3/uL; Monocyte% 8.8 % (0-10); NRBC Flagged by Analyzer 0 % (0-5); Neutrophil # 2.91 X10^3/uL (2.7-7.7); Neutrophil % 54.3 % (47-70); Platelet Count 197 K/mm3 (150-450); RBC Distribution Width CV 13.5 % (11.6-14.6); RBC Distribution Width SD 42.4 fl (35.1-43.9); Red Blood Count 5.22 M/mm3 (4.2-5.4); White Blood Count 5.4 K/mm3 (4.4-11.0)
== END ==
PROVIDERS: Family Provider Family Medicine; PCP Family Medicine; Referring Provider Obstetrics & Gynecology; Visit Provider Obstetrics & Gynecology
DX: N39.3 Stress incontinence (female) (male) (principal)
CPT/HCPCS: 36415; 85025

== ENCOUNTER 2019-04-25 09:05 | Emergency (ER) | payer OTHER, SELFPAY ==
[2019-04-25 09:06] VITALS: BP 148/103; PULSE 82; RESP 16; TEMP 36.4; O2SAT 100; BMI 37.3
[2019-04-25 09:51] LABS: Absolute Lymphocyte Count 1.37 X10^3/uL (0.83-4.51); Basophil# 0.03 X10^3/uL; Basophil% 0.6 % (0-1); Eosinophil# 0.26 X10^3/uL; Eosinophils% 5.2 % (0-5); Hematocrit 46.2 % (37-47); Lymphocyte # 1.37 X10^3/ul (4.0); Lymphocyte % 27.3 % (19-41); Mean Corp Hgb Conc 32.5 g/dL (32-36); Mean Corpuscular Hgb 27.8 pg (27.0-32.0); Mean Corpuscular Volume 85.6 fL (81-99); Mean Platelet Vol. 10.5 fl (6.2-12.0); Monocyte# 0.34 X10^3/uL; Monocyte% 6.8 % (0-10); NRBC Flagged by Analyzer 0 % (0-5); Neutrophil % 59.9 % (47-70); Platelet Count 190 K/mm3 (150-450); RBC Distribution Width CV 13.2 % (11.6-14.6); RBC Distribution Width SD 41.1 fl (35.1-43.9)
[2019-04-25] MEDS: 0.9% Normal Saline 1,000 ML 150 ML IV (10:01)
[2019-04-25 10:08] LABS: ALB/GLOB Ratio 1.1 RATIO (0.9-2.4); AST(SGOT) 14 U/L (15-37); Alanine Aminotransfer ALT/SGPT 31 U/L (13-56); Albumin, Serum 4.1 g/dL (3.2-5.0); Alkaline Phosphatase 62 U/L (45-117); Anion Gap 7 (5-15); BUN 9 mg/dL (7-18); BUN/Creat Ratio 10.3 RATIO (10-20); Chloride 105 mmol/L (98-107); Creatinine, Serum 0.87 mg/dL (0.55-1.02); EST Glomerular Filtration Rate 80 mL/min (>60); Est Glom Filt Rate - Afr Amer 97 mL/min (>60); Estimated Creatinine Clearance 87.71 ml/min; Globulin 3.8 g/dL (2.2-4.2); Glucose 108 mg/dL (74-106); Lipase 115 U/L (73-393); Potassium 3.8 mmol/L (3.5-5.1); Protein, Total 7.9 g/dL (6.4-8.2); Sodium Level 139 mmol/L (136-145)
[2019-04-25 10:09] LABS: D-Dimer Quantitative (DVT/PE) < 0.27 FEU/ug/m (0.27-0.49)
--- NOTE | 2019-04-25 10:12 | CT_ITS ---
STUDY: CT ABDOMEN AND PELVIS WITHOUT CONTRAST REASON FOR EXAM: Female, 33 years old. Abdomen/back pain. RADIATION DOSAGE (If Supplied By Facility): CTDIvol = ( 19.88 ) mGy, DLP = ( 1048.11 ) mGycm TECHNIQUE: Transaxial images were obtained from the dome of the diaphragm to the symphysis pubis without oral contrast, and without intravenous contrast. Sagittal and coronal images were reconstructed. Individualized dose optimization techniques were used for this CT. COMPARISON: Comparison is made with prior study dated November 26, 2017. FINDINGS: The visualized lung bases are unremarkable. The visualized portions of the heart are within normal limits. Normal liver. Normal gallbladder and extrahepatic biliary system. Borderline splenomegaly. Normal pancreas. Normal bilateral adrenal glands. Normal right kidney. Normal left kidney. There is a small hiatal hernia. Normal small intestine. Normal colon. The appendix is visualized and appears normal. Normal abdominal aorta. Normal inferior vena cava. There is borderline retroperitoneal lymphadenopathy with enlarged nodes no greater than 10mm in the short axis diameter. Normal urinary bladder. Calcified phleboliths. There is a small umbilical hernia containing fat. Normal osseous structures. CT/Abdomen/Pelvis without Cont IMPRESSION: Borderline splenomegaly. Electronically Signed: Christiano Eduardo, at 11:15 EST , Service support ,
[2019-04-25 10:54] LABS: Mucous, Urine 0 SEEN /hpf (<or=2+)
[2019-04-25 10:57] LABS: Color, Urine Yellow (Yellow); Glucose, Dipstick Normal (Normal); Ketone-Dipstick Negative (Negative); Leukocyte Esterase-Dipstick 25 /ul (Negative); Nitrite-Dipstick Negative (Negative); Occult Blood-Urine 250 /ul (Negative); Protein-Dipstick Negative (Negative); Urine Bilirubin Dipstick Negative (Negative); Urine Clarity Sl. Cloudy (Clear); Urine Urobilinogen Normal (Normal)
[2019-04-25 11:07] LABS: Red Blood Cells-Urine 5-10 SEEN /hpf (0-5); Squamous Epithelial Cells - UA 0-5 SEEN /hpf (5-10); White Blood Cells 0-5 SEEN /hpf (0-5)
[2019-04-25 11:08] LABS: Bacteria RARE /hpf (None Seen)
[2019-04-25 11:14] LABS: Internal QC Validated? YES +Cl - CLEAR BKGD; Pregnancy, Urine Negative Negative
--- NOTE | 2019-04-25 11:25 | ED.DCSUM_ITS ---
- ER Visit Summary Date of Service: 04/25/19 Chief Complaint: [Abdominal pain and back pain] History of Present Illness: The patient is a 33 F [the emergency department 3- day history of abdominal discomfort that is been intermittent. Patient also complains of pain in her back with deep breath and certain movements. Patient was seen in urgent care the other day and had a normal urinalysis and a chest x- ray that was normal. Patient also complained of some black material in her stool. Patient denies vomiting blood. She is had no fever. She is had a slight cough. Patient with history of gestational diabetes and hypothyroidism. She denies urinary symptoms.] Physical Examination: [HEENT-PERRLA, EOMI. Cranial nerves II through XII grossly intact. TMs clear. Mucous membranes moist. No adenopathy. Cardiovascular-regular rate and rhythm without murmur or ectopy Lungs-clear to auscultation, chest wall stable without crepitus or subcu emphysema Abdomen-normoactive bowel sounds, soft, mild diffuse tenderness on exam. Patient also had some discomfort in the right upper quadrant., no rebound or rigidity, no peritoneal signs. He has some mild CVA tenderness bilaterally. Extremities-intact ?4, normal range of motion, normal pulses, atraumatic] Test Results: [CBC with differential 14 showing a 5.0, hemoglobin 15, hematocrit 46, plates 190. Chemistries unremarkable. LFTs normal. Lipase was normal at 115. Urinalysis normal. D-dimer was less than 0.27. Hemoccult was negative. hCG was negative. CT scan of the flank showed borderline splenomegaly otherwise nothing acute.] Emergency Department Course and Treatment: [] Treatment Plan: [Patient to follow-up with primary care physician 3 to 5 days. Patient given a prescription for few [place] for severe pain] Disposition: [Discharged home in stable condition.] Impression: [Abdominal pain-etiology uncertain Back pain] This note was generated with [employer] dictation software. It may contain incorrect words, spelling, and punctuation that were not noted in review of the chart prior to signing ED Disposition - Plan for ED Patient: Referrals: Nima Whitman MD [Primary Care Provider] -
--- NOTE | 2019-04-25 11:28 | DCINST.ED_ITS ---
ED Disposition - Plan for ED Patient: Instructions: ABDOMINAL PAIN, Unknown Cause, (Female), BACK SPASM, No Trauma Prescriptions: Hydrocodone Bitart/Apap 5-325 [[place] 5MG-325MG] 1 tab PO Q4H PRN PRN 2 Days #10 tab PRN Reason: Pain Prescription Printed Referrals: Nima Whitman MD [Primary Care Provider] - 3-5 Days
[2019-04-25 11:34] VITALS: BP 150/59; PULSE 77; RESP 16; O2SAT 99
== END 2019-04-25 11:40 | disposition home or self-care (01) ==
PROVIDERS: Emergency Provider Emergency Medicine; Family Provider Family Medicine; PCP Family Medicine
DX: R10.9 Unspecified abdominal pain (principal); R16.1 Splenomegaly, not elsewhere classified; M54.9 Dorsalgia, unspecified; E03.9 Hypothyroidism, unspecified; R05 Cough; Z72.0 Tobacco use; Z79.899 Other long term (current) drug therapy; Z86.32 Personal history of gestational diabetes
CPT/HCPCS: 74176; 80053; 81001; 81025; 82274; 83690; 85025; 85379; 96360; 96361; 99283; J7030; A4216

== ENCOUNTER 2019-06-20 20:42 | Emergency (ER) | payer OTHER, SELFPAY ==
[2019-06-12 09:31] VITALS: BMI 37.3
[2019-06-20 20:43] VITALS: BP 141/75; PULSE 89; RESP 18; TEMP 36.8; O2SAT 100; BMI 37.5
--- NOTE | 2019-06-20 22:21 | CT_ITS ---
STUDY: CT ABDOMEN AND PELVIS WITHOUT CONTRAST REASON FOR EXAM: Female, 34 years old. ABD PAIN/FALL 06/15/19. Low back pain. Prior rt femur surgery RADIATION DOSAGE (If Supplied By Facility): CTDIvol = ( 16.60 ) mGy, DLP = ( 1228.99 ) mGycm TECHNIQUE: Transaxial images were obtained from the dome of the diaphragm to the symphysis pubis without oral contrast, and without intravenous contrast. Sagittal and coronal images were reconstructed. Individualized dose optimization techniques were used for this CT. COMPARISON: April 25, 2019 FINDINGS: The visualized lung bases are unremarkable. The visualized portions of the heart are within normal limits. Normal liver. Normal gallbladder and extrahepatic biliary system. Normal spleen. Normal pancreas. Normal bilateral adrenal glands. Normal right kidney. Normal left kidney. Normal visualized stomach. Normal small intestine. Normal colon. The appendix is visualized and appears normal. Normal abdominal aorta. Normal inferior vena cava. Normal retroperitoneum. Normal urinary bladder. Small fatty umbilical hernia. Previous ORIF of the right femur. CT/Abdomen/Pelvis W IV Cont ONLY IMPRESSION: Small fatty umbilical hernia. No acute intra-abdominal or pelvic pathology. Electronically Signed: Manuelito Martinez DO at 23:29 EST Tel [phone], Service support ,
--- NOTE | 2019-06-20 22:22 | RAD_ITS ---
STUDY: X-RAY - THORACIC SPINE REASON FOR EXAM: Female, 34 years old. Fall TECHNIQUE: 3 view(s) of the thoracic spine were obtained. COMPARISON: None. FINDINGS: Normal kyphosis of the thoracic spine. There is no substantial scoliosis. Normal thoracic vertebrae. Minimal spurring at the endplates. Normal disc space heights. The soft tissue structures are unremarkable. RAD/Thoracic Spine 3 Views IMPRESSION: No acute bony injury of the thoracic spine. Electronically Signed: Manuelito Martinez DO at 23:21 EST Tel [phone], Service support ,
--- NOTE | 2019-06-20 22:22 | CT_ITS ---
STUDY: CT CERVICAL SPINE WITHOUT CONTRAST REASON FOR EXAM: Female, 34 years old. CHRONIC NECK PAIN/FALL 06/15/19 RADIATION DOSAGE (If Supplied By Facility): CTDIvol = ( 25.35 ) mGy, DLP = ( 542.82 ) mGycm TECHNIQUE: High resolution transaxial imaging was performed without contrast material. Sagittal and coronal images were reconstructed. Individualized dose optimization techniques were used for this CT. COMPARISON: None FINDINGS: Normal craniovertebral junction. Normal anterior atlantoaxial articulation. Normal odontoid process. Normal cervical lordosis. Normal vertebral bodies and posterior osseous elements. C2-3: Normal endplates. Normal disc height and morphology. Normal central canal and intervertebral neuroforamina. C3-4: Normal endplates. Normal disc height and morphology. Normal central canal and intervertebral neuroforamina. C4-5: Normal endplates. Normal disc height and morphology. Normal central canal and intervertebral neuroforamina. C5-6: Spurring at the endplates. Normal disc height and morphology. Normal central canal and intervertebral neuroforamina. C6-7: Normal endplates. Normal disc height and morphology. Normal central canal and intervertebral neuroforamina. C7-T1: Normal endplates. Normal disc height and morphology. Normal central canal and intervertebral neuroforamina. Normal visualized soft tissue structures. CT/Spine Cervical without Contras IMPRESSION: No acute pathology of the cervical spine. Electronically Signed: Manuelito Martinez DO at 23:36 EST Tel [phone], Service support ,
--- NOTE | 2019-06-20 22:45 | RAD_ITS ---
STUDY: X-RAY - LUMBAR SPINE REASON FOR EXAM: Female, 34 years old. Fall TECHNIQUE: 3 view(s) of the lumbar spine were obtained. COMPARISON: None FINDINGS: Normal lumbar lordosis. There is no substantial scoliosis. There is a normal alignment of the vertebrae. Normal vertebral bodies and endplates. Normal disc space heights. The soft tissue structures are unremarkable. RAD/Lumbar Spine 2 or 3 Views IMPRESSION: Normal x-ray examination of the lumbar spine. Electronically Signed: Manuelito Martinez DO at 23:19 EST Tel [phone], Service support ,
--- NOTE | 2019-06-21 00:24 | ED.DCSUM_ITS ---
- ER Visit Summary Date of Service: 06/21/19 Chief Complaint: Back pain History of Present Illness: The patient is a 34 F presenting after fall. Patient states she fell down half a flight of stairs last Monday. She went to urgent care and had x-rays of her tailbone performed which were negative per pat ient. She did not hit her head or lose consciousness. She complains of persistent pain in her back now up to her neck. She also complains of right upper quadrant pain. She denies nausea or vomiting. Denies urinary complaints. Denies other complaints. She has been using Tylenol at home. She states she has had 1 visit with pain management but does not have a pain management contract. Physical Examination: Vitals are stable. Patient is afebrile. Alert no acute distress. HEENT exam is unremarkable. Neck is mild diffuse tenderness with no step-off Lungs are clear and equal bilaterally. Heart is regular rate and rhythm. Abdomen is soft mild right upper quadrant tenderness with no guarding or rebound Back: Mild diffuse tenderness. Extremities are unremarkable. Skin is warm and dry. No focal neurologic deficit. Normal strength and sensation Remainder of exam is unremarkable. Emergency Department Course and Treatment: CT cervical spine shows no acute process. Thoracic and lumbar x-ray shows no acute process. CT abdomen pelvis shows no acute process. Patient is given prescription for Flexeril. Advised to follow-up with primary care physician. Advised return to ED for worsening symptoms. Disposition: Discharge home Impression: Back pain status post fall This note was generated with [employer] dictation software. It may contain incorrect words, spelling, and punctuation that were not noted in review of the chart prior to signing ED Disposition - Plan for ED Patient: Instructions: Back Sprain/Strain Prescriptions: cycloBENZAPRine HCl [Flexeril] 10 mg PO TID PRN #20 tablet PRN Reason: Muscle Spasm Prescription Printed Referrals: Nima Whitman MD [Primary Care Provider] -
--- NOTE | 2019-06-21 00:27 | ED.DEP ---
ED Disposition - Plan for ED Patient: Instructions: Back Sprain/Strain Prescriptions: cycloBENZAPRine HCl [Flexeril] 10 mg PO TID PRN #20 tablet PRN Reason: Muscle Spasm Referrals: Nima Whitman MD [Primary Care Provider] -
== END 2019-06-21 00:54 | disposition home or self-care (01) ==
PROVIDERS: Emergency Provider Emergency Medicine; PCP Family Medicine
DX: M54.9 Dorsalgia, unspecified (principal); M54.2 Cervicalgia; R10.11 Right upper quadrant pain; Z72.0 Tobacco use; Z79.899 Other long term (current) drug therapy
CPT/HCPCS: 72072; 72100; 72125; 74177; 99283; Q9967; A4216

== ENCOUNTER → 2019-07-03 10:59 | Outpatient (CLI) | payer OTHER, SELFPAY ==
[2019-07-03 09:03] VITALS: BMI 37.5
[2019-07-03 12:36] LABS: HIV - WCH Non-Reactive (Nonreactive)
[2019-07-03 19:55] LABS: Chlamydia Trachomatis by PCR Negative (Negative); Neisserai gonorrhoeae by PCR Negative (Negative); Probe Check PASS; Sample Adequacy Control PASS; Specimen Processing Control PASS
[2019-07-04 02:39] LABS: Rapid Plasmin Reagin (RPR) NONREACTIVE (NONREACTIVE)
[2019-07-05 03:06] LABS: HCV Quant. RNA PCR HCV Not Detected IU/mL (.)
== END ==
PROVIDERS: PCP Family Medicine; Referring Provider Nurse Practitioner Women's Health; Visit Provider Nurse Practitioner Women's Health
DX: Z11.3 Encounter for screening for infections with a predominantly sexual mode of transmission (principal)
CPT/HCPCS: 36415; 86592; 86703; 87491; 87522; 87591

== ENCOUNTER 2019-07-21 01:56 | Emergency (ER) | payer OTHER, SELFPAY ==
[2019-07-18 13:41] VITALS: BMI 37.5
[2019-07-21 02:00] VITALS: BP 123/76; PULSE 66; RESP 16; TEMP 36.7; O2SAT 97; BMI 38.0
--- NOTE | 2019-07-21 02:58 | ED.DCSUM_ITS ---
History of Present Illness Chief Complaint: Sore Throat Informant: Patient Onset: Weeks - 1 Context: Gradual Onset Timing: Intermittent Worsened by: Swallowing Associated Symptoms: Nasal Congestion, Nonproductive cough, - - sore throat Narrative: Patient is a 34-year-old female presenting with dysphasia, dry tongue and white bumps in her mouth. Patient states she is given her symptoms and is concerned that she might have contracted syphilis. She states she is had worsening symptoms for the past week. She notes that she is also had a dry cough. She states she has had thrush in the past. She is a smoker and is worried she could have throat cancer. She denies any fever or chills. She has had intermittent nasal congestion but denies any sensation of postnasal drip. She denies any acid reflux. She denies any shortness of breath or difficulty breathing. She denies any chest pain, nausea, vomiting or other symptoms. 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 The results are reviewed and that shows that she had a negative RPR, gonorrhea, chlamydia and HIV. Past Medical History - Allergies and Home Meds Allergies/Adverse Reactions: Allergies latex Allergy (Verified 07/21/19 01:58) Itching naproxen Allergy (Verified 07/21/19 01:58) Unknown Penicillins [PCN] Allergy (Verified 07/21/19 01:58) Rash ketorolac [From Toradol] Adverse Reaction (Verified 07/21/19 01:58) Other unknown, pt can't remember reaction ondansetron HCl [From Zofran (as hydrochloride)] Adverse Reaction (Verified 07/21/19 01:58) Other headaches Primary Care Physician: Nima Whitman MD [Primary Care Provider] - Past Medical History: - - Tobacco abuse, history of melanoma, hypothyroid Surgical History: noncontributory Lives: With Family Smoking Status: Current every day smoker Review of Systems General: Denies: Chills, Fever, Malaise, Sweats Eyes: Denies: Visual changes - bilaterally, Diplopia ENT: Reports: Sore throat, - - White patches on tongue and cheeks, odynophagia. Denies: Rhinorrhea Cardiovascular: Denies: Chest pain, Palpitations Respiratory: Reports: Cough. Denies: Dyspnea, Sputum, Dyspnea on exertion Gastrointestinal: Denies: Abdominal pain, Nausea, Vomiting, Diarrhea, Melena, Hematochezia Genitourinary: Denies: Dysuria, Hematuria, Frequency Musculoskeletal: Denies: Back pain, Extremity Pain Skin: Denies: Rash, Wounds Neurological: Denies: Headache, Weakness, Numbness Physical Exam Vital Signs/Narrative: Vital Signs Temp Pulse Resp BP Pulse Ox 07/21/19 02:00 98.0 F 66 16 123/76 H 97 Inital Vital Signs reviewed: Yes General: Well nourished, Well developed, Obese Head: Normocephalic, Atraumatic Eyes: Perrl, EOMI Ears: Normal external canal, TM's clear Nose: Normal Inspection, No Rhinorrhea. Negative for: Swollen Turbinates, Congestion Mouth/Throat: No Posterior Erythema, - - scattered White plaques over the bilateral mucosal mucosa, do not scrape off easily. Negative for: Posterior Oropharyngeal Erythema Tonsils: Negative for: Right Tonsilar Erythema, Left Tonsilar Erythema, Right Tonsilar Exudates, Left Tonsilar Exudates, Right Tonsilar Swelling, Left Tonsilar Swelling Neck: Supple, Nontender, No Lymphadenopathy, No Meningismus Cardiovascular: Regular rate, Regular rhythm, No murmurs Respiratory: No distress, CTA bilaterally, Chest nontender Abdomen: Soft, Nontender, Nondistended, Normal bowel sounds Back: Nontender, Normal Inspection Extremities: Nontender, No edema Skin: Normal color, No rash Neurological: Alert, Oriented x3, Cranial nerves II-XII grossly intact, Normal Strength, Normal Sensation Psychological: Normal affect, - - anxious Diagnostic/Tx/Re-eval - Medical Decision Making Patient is evaluated for painful swallowing, frequent nonproductive cough and sore throat. This been going on for about a week. 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 She is concerned that she might have a sexually transmitted infection in her throat because of symptoms she googled. Patient is counseled this is seems very unlikely. Physical exam is not consistent with gonococcal infection. In addition patient had negative STD testing patient will be started on niacin swish and swallow for her symptoms. She will be referred to ENT. She is counseled that she does have risk factors for oral pharyngeal cancer she is a smoker and should follow-up with ENT for further evaluation. Patient is counseled on signs symptoms require return emergency room. At this time she is not have any airway compromise and is breathing easily. She is well-appearing and stable for outpatient follow-up. She is discharged home in stable condition. ED Disposition - Plan for ED Patient: Disposition: Home or Assisted Living Diagnosis: Thrush, oral Instructions: Oral Thrush Prescriptions: Nystatin 500,000U/5ML [Mycostatin] 5 ml PO 4X/DAY #100 ml Transmission Status: Pending to [facility] [place] Referrals: Nima Whitman MD [Primary Care Provider] - Greg Foster MD [STAFF PHYSICIAN] - Additional Instructions: Please follow-up with ENT for further evaluation of your throat symptoms. You will be started on thrush treatment. It is swish and swallow. Hopefully this will help with your discomfort. Return the emergency room if you have any difficulty breathing or significantly worsening symptoms.
== END 2019-07-21 03:20 | disposition home or self-care (01) ==
LOC: ED 03:17
PROVIDERS: Emergency Provider Emergency Medicine; PCP Family Medicine
DX: B37.0 Candidal stomatitis (principal); J02.9 Acute pharyngitis, unspecified; R47.02 Dysphasia; E03.9 Hypothyroidism, unspecified; E66.9 Obesity, unspecified; F17.200 Nicotine dependence, unspecified, uncomplicated; Z79.899 Other long term (current) drug therapy; Z91.040 Latex allergy status; Z88.0 Allergy status to penicillin; Z88.8 Allergy status to other drugs, medicaments and biological substances; Z85.820 Personal history of malignant melanoma of skin
CPT/HCPCS: 99282

== ENCOUNTER → 2019-07-22 09:44 | Outpatient (CLI) | payer OTHER, SELFPAY ==
[2019-07-18 13:41] VITALS: BMI 37.5
[2019-07-21 02:00] VITALS: BMI 38.0
--- NOTE | 2019-07-22 09:45 | BI_ITS ---
MAMMOGRAPHY - BILATERAL DIAGNOSTIC REASON FOR EXAM: Female, 34 years old. Left breast pain. PERTINENT HISTORY: Non-contributory. Patient has a history of prior excision of a melanoma of the left breast. TECHNIQUE: Digital bilateral breast marla (3D mammographic acquisition) in the CC and MLO projections. 2-D mediolateral oblique (MLO) and craniocaudad (CC) views of both breasts were obtained. CAD: Full Field Digital Mammography with Computer Added Detection was performed. COMPARISON: Comparison is made with prior mammogram dated October 09, 2018. FINDINGS: Breast Composition: There are scattered areas of fibroglandular density. There are no dominant masses or suspicious calcifications. Stable fat-containing bilateral axillary lymph nodes. No other significant abnormalities are identified. There has been no significant change since the prior study. BI/DIAG MAMM W/CAD, BILAT IMPRESSION: Stable bilateral diagnostic mammogram. With the patient''s history of left breast pain, targeted left breast ultrasound is recommended. ASSESSMENT CATEGORY: BIRADS Category 0: Incomplete. Need additional imaging evaluation. A letter regarding these results will be sent to the patient by the facility within 30 days. Approximately 10% of breast cancers are not detected by mammography. A normal mammogram should not delay biopsy of a clinically suspicious abnormality. Electronically Signed: Christiano Eduardo, at 11:05 EST , Service support ,
--- NOTE | 2019-07-22 09:45 | US_ITS ---
STUDY: ULTRASOUND BREAST - LEFT REASON FOR EXAM: Female, 34 years old. Pain in the left breast. TECHNIQUE: Axial and longitudinal images of the LEFT breast were performed with a high resolution ultrasound transducer. # OF IMAGES: 28 COMPARISON: Comparison is made with prior mammogram done earlier in the day. FINDINGS: LEFT Breast: The upper outer quadrant of the left breast was examined by ultrasound. No sonographic abnormality is seen. US/Breast Limited Unilateral IMPRESSION: No sonographic abnormality is seen. ASSESSMENT CATEGORY: BIRADS Category 1: Negative. A letter regarding these results will be sent to the patient by the facility within 30 days. Electronically Signed: Christiano Eduardo, at 10:13 EST , Service support ,
--- NOTE | 2019-07-22 11:01 | US_ITS ---
STUDY: THYROID ULTRASOUND REASON FOR EXAM: Female, 34 years old. Neck pain TECHNIQUE: Ultrasound evaluation of the thyroid was performed with real-time and static gonzalez-scale imaging. COMPARISON: Comparison is made with prior examination dated October 09, 2017. FINDINGS: RIGHT LOBE: The right lobe of the thyroid gland measures 4.6 cm x 1.2 cm x 1.1 cm. There is a heterogeneous echotexture. There is a 1.1 cm x 1.1 cm x 0.5 cm hypoechoic solid nodule in the lower pole of the right lobe of the thyroid. Several smaller hypodensities are seen scattered throughout the right lobe. LEFT LOBE: The left lobe of the thyroid gland is enlarged and measures 5.7 cm x 1.4 cm x 1.1 cm. There is a heterogeneous echotexture. Multiple small nodules are seen. A dominant solid hypoechoic nodule measuring 1.3 cm x 0.8 cm x 0.9 cm is seen in the midportion of the left lobe. ISTHMUS: The isthmus is enlarged and measures 6.0 mm. There is an enlarged lymph node in the left-sided neck measuring 2.9 cm x 1.2 cm x 0.5 cm. US/Head/Neck Soft Tissue IMPRESSION: Enlargement of the left lobe of the thyroid with bilateral solid nodules as described. Heterogeneous echotexture of the right and left lobe of the thyroid. Enlarged left cervical lymph node. Electronically Signed: Christiano Eduardo, at 12:15 EST , Service support ,
== END ==
PROVIDERS: PCP Family Medicine; Referring Provider Obstetrics & Gynecology; Visit Provider Obstetrics & Gynecology
DX: N64.4 Mastodynia (principal); M54.2 Cervicalgia
CPT/HCPCS: 76536; 76642; 77062; 77066; G0279

== ENCOUNTER → 2019-07-25 09:37 | Outpatient (CLI) | payer OTHER, SELFPAY ==
[2019-07-21 02:00] VITALS: BMI 38.0
[2019-07-25 12:49] LABS: T4 Free Direct 1.16 ng/dL (0.76-1.46); Thyroid Stim Hormone (TSH) 3.02 uIU/mL (0.358-3.74)
[2019-07-26 23:49] LABS: Anti-Thyroglobulin AB < 1.0 IU/mL (0.0-0.9); Thyroglobulin, Serum Qt. 72.8 ng/mL (1.5-38.5); Thyroid Peroxidase AB > 600 IU/mL (0-34)
== END ==
PROVIDERS: PCP Family Medicine; Referring Provider Otolaryngology; Visit Provider Otolaryngology
DX: E06.9 Thyroiditis, unspecified (principal)
CPT/HCPCS: 36415; 84432; 84439; 84443; 86376; 86800

== ENCOUNTER → 2019-09-12 | Outpatient (CLI) | payer SELFPAY ==
[2019-09-12 14:10] VITALS: BMI 38.0
== END | disposition home or self-care (01) ==
PROVIDERS: PCP Family Medicine; Referring Provider Nurse Practitioner Women's Health; Visit Provider Nurse Practitioner Women's Health
DX: N89.8 Other specified noninflammatory disorders of vagina (principal)
CPT/HCPCS: 87070; 87205

== ENCOUNTER → 2019-11-26 11:04 | Outpatient (CLI) | payer SELFPAY ==
[2019-09-12 14:10] VITALS: BMI 38.0
[2019-11-26 13:22] LABS: T4 Free Direct 1.24 ng/dL (0.76-1.46); Thyroid Stim Hormone (TSH) 1.36 uIU/mL (0.358-3.74)
[2019-11-27 04:57] LABS: Thyroid Peroxidase AB > 600 IU/mL (0-34)
== END ==
PROVIDERS: PCP Family Medicine; Referring Provider Internal Medicine Endocrinology, Diabetes & Metabolism; Visit Provider Internal Medicine Endocrinology, Diabetes & Metabolism
DX: E03.8 Other specified hypothyroidism (principal); E06.3 Autoimmune thyroiditis
CPT/HCPCS: 36415; 84439; 84443; 86376

== ENCOUNTER 2019-11-28 02:15 | Emergency (ER) | payer SELFPAY ==
[2019-09-12 14:10] VITALS: BMI 38.0
--- NOTE | 2019-11-28 02:17 | CT_ITS ---
STUDY: CT ABDOMEN AND PELVIS WITHOUT CONTRAST REASON FOR EXAM: Female, 34 years old. Right-sided abdominal pain RADIATION DOSAGE (If Supplied By Facility): CTDIvol = ( 19.96 ) mGy, DLP = ( 1077.10 ) mGycm TECHNIQUE: Transaxial images were obtained from the dome of the diaphragm to the symphysis pubis without oral contrast, and without intravenous contrast. Sagittal and coronal images were reconstructed. Individualized dose optimization techniques were used for this CT. COMPARISON: None. FINDINGS: Atelectasis versus scar formation at the lung bases. The visualized portions of the heart are within normal limits. Normal liver. Normal gallbladder and extrahepatic biliary system. Normal spleen. Normal pancreas. Normal bilateral adrenal glands. Normal right kidney. Normal left kidney. Normal bilateral ureters. Normal visualized stomach. Normal small intestine. Normal colon. The appendix is visualized and appears normal. Normal abdominal aorta. Normal inferior vena cava. Normal retroperitoneum. No free air or free fluid. Normal urinary bladder. Reproductive structures are normal. Small fat-containing umbilical hernia with no bowel involvement. Normal osseous structures. CT/Abdomen/Pelvis without Cont IMPRESSION: 1. No acute intra-abdominal abnormality. 2. Small fat-containing umbilical hernia with no bowel involvement. Electronically Signed: Allen Glass MD at 4:05 EDT Tel , Service support ,
--- NOTE | 2019-11-28 02:17 | ED.DCSUM_ITS ---
- ER Visit Summary Date of Service: 11/28/19 Chief Complaint: Abdominal pain History of Present Illness: The patient is a 34 F who presents with abdominal pain. Started 3 days ago. She describes sharp pains in her right lower quadrant that now radiates into her back. This radiation started yesterday. Sh e states that laughing and coughing makes the pain worse. She started to get nauseous yesterday. No vomiting. No diarrhea or constipation. Denies any urinary symptoms. No history of kidney stones. She denies a history of abdominal surgeries. She states that she has a history of a fatty liver and was told what one point she had an abdominal hernia but has had no further follow-up for this. Physical Examination: Vital signs reviewed. HEENT exam unremarkable. Heart is regular rate and rhythm without murmurs. Lungs are clear to auscultation. Abdomen is soft without any specific tenderness on examination. There is no guarding, rebound tenderness. I feel no masses. Extremities reveal no edema. Skin exam normal. Neurologic exam normal. Test Results: Laboratory studies normal. CAT scan shows the known small fat- containing umbilical hernia but no other acute findings. Emergency Department Course and Treatment: The patient was ordered Bentyl that she refused. At this point I do not see any acute causes of her pain. I will give her some MiraLAX to see if clearing her bowels will help with her pain. She will need to call her doctor for follow-up Treatment Plan: [] Disposition: Discharge Impression: Abdominal pain This note was generated with [employer] dictation software. It may contain incorrect words, spelling, and punctuation that were not noted in review of the chart prior to signing ED Disposition - Plan for ED Patient: Disposition: Home or Assisted Living Instructions: ED Abdominal Pain Unkn Cause Fem Prescriptions: Polyethylene Glycol 3350 [Miralax] 17 gm PO DAILY #20 packet Transmission Status: Pending to [facility] Referrals: Nima Whitman MD [Primary Care Provider] -
[2019-11-28 02:19] VITALS: BP 148/93; PULSE 83; RESP 16; TEMP 36.7; O2SAT 97; BMI 29.4
[2019-11-28 02:23] LABS: Absolute Lymphocyte Count 2.64 X10^3/uL (0.83-4.51); Basophil# 0.04 X10^3/uL; Basophil% 0.6 % (0-1); Eosinophil# 0.26 X10^3/uL; Hematocrit 42.6 % (37-47); Hemoglobin 13.5 g/dL (12.0-15.0); Lymphocyte # 2.64 X10^3/ul (4.0); Lymphocyte % 40.7 % (19-41); Mean Corp Hgb Conc 31.7 g/dL (32-36); Mean Corpuscular Hgb 27.8 pg (27.0-32.0); Mean Corpuscular Volume 87.8 fL (81-99); Mean Platelet Vol. 10.7 fl (6.2-12.0); Monocyte# 0.55 X10^3/uL; Monocyte% 8.5 % (0-10); NRBC Flagged by Analyzer 0 % (0-5); Neutrophil # 2.99 X10^3/uL (2.7-7.7); Platelet Count 181 K/mm3 (150-450); RBC Distribution Width CV 13.3 % (11.6-14.6); RBC Distribution Width SD 42.5 fl (35.1-43.9); Red Blood Count 4.85 M/mm3 (4.2-5.4); White Blood Count 6.5 K/mm3 (4.4-11.0)
[2019-11-28 02:34] LABS: Bacteria 0 SEEN /hpf (None Seen); Color, Urine Yellow (Yellow); Glucose, Dipstick Normal (Normal); Ketone-Dipstick Negative (Negative); Leukocyte Esterase-Dipstick Negative /ul (Negative); Mucous, Urine 0 SEEN /hpf (<or=2+); Nitrite-Dipstick Negative (Negative); Occult Blood-Urine Negative /ul (Negative); Protein-Dipstick Negative (Negative); Red Blood Cells-Urine 0 SEEN /hpf (0-5); Specific Gravity, Urine 1.015 (1.002-1.030); Urine Bilirubin Dipstick Negative (Negative); Urine Clarity Clear (Clear); Urine Urobilinogen Normal (Normal); White Blood Cells 0 SEEN /hpf (0-5)
[2019-11-28 02:37] LABS: Internal QC Validated? YES +Cl - CLEAR BKGD; Pregnancy, Urine Negative Negative
[2019-11-28 02:40] LABS: ALB/GLOB Ratio 1.1 RATIO (0.9-2.4); AST(SGOT) 13 U/L (15-37); Alanine Aminotransfer ALT/SGPT 29 U/L (13-56); Alkaline Phosphatase 61 U/L (45-117); Anion Gap 4 (5-15); BUN 11 mg/dL (7-18); Calcium,Total 8.8 mg/dL (8.5-10.1); Chloride 106 mmol/L (98-107); Creatinine, Serum 0.79 mg/dL (0.55-1.02); EST Glomerular Filtration Rate 90 mL/min (>60); Est Glom Filt Rate - Afr Amer 109 mL/min (>60); Estimated Creatinine Clearance 103.13 ml/min; Globulin 3.6 g/dL (2.2-4.2); Glucose 103 mg/dL (74-106); Potassium 3.7 mmol/L (3.5-5.1); Protein, Total 7.6 g/dL (6.4-8.2); Sodium Level 139 mmol/L (136-145)
[2019-11-28 02:41] LABS: Squamous Epithelial Cells - UA 0-5 SEEN /hpf (5-10)
[2019-11-28 04:22] VITALS: BP 136/60; PULSE 78; RESP 18; O2SAT 98
== END 2019-11-28 04:22 | disposition home or self-care (01) ==
PROVIDERS: Emergency Provider Emergency Medicine; PCP Family Medicine
DX: R10.31 Right lower quadrant pain (principal); R11.0 Nausea; K42.9 Umbilical hernia without obstruction or gangrene; E06.9 Thyroiditis, unspecified; Z72.0 Tobacco use; Z79.899 Other long term (current) drug therapy
CPT/HCPCS: 74176; 80053; 81001; 81025; 85025; 99284

== ENCOUNTER → 2019-12-04 13:26 | Outpatient (CLI) | payer OTHER, SELFPAY ==
[2019-12-03 09:24] VITALS: BMI 29.4
--- NOTE | 2019-12-04 13:27 | BI_ITS ---
MAMMOGRAPHY - UNILATERAL DIAGNOSTIC: RIGHT BREAST REASON FOR EXAM: Female, 34 years old. 4 day history of right breast lump. PERTINENT HISTORY: Non-contributory. TECHNIQUE: Digital unilateral breast marla (3D mammographic acquisition) in the CC and MLO projections. 2-D mediolateral oblique (MLO) and craniocaudad (CC) views of both breasts were obtained. CAD: Full Field Digital Mammography with Computer Added Detection was performed. COMPARISON: Comparison is made with prior study dated October 09, 2018. FINDINGS: Breast Composition: There are scattered areas of fibroglandular density. There are no dominant masses or suspicious calcifications. No other significant abnormalities are identified. There has been no significant change since the prior study. BI/DIAG MAMM W/CAD, UNILAT IMPRESSION: Stable unilateral diagnostic mammogram. With the patient''s history of a palpable lump in the right breast, correlation with ultrasound is recommended. ASSESSMENT CATEGORY: BIRADS Category 0: Incomplete. Need additional imaging evaluation. A letter regarding these results will be sent to the patient by the facility within 30 days. Approximately 10% of breast cancers are not detected by mammography. A normal mammogram should not delay biopsy of a clinically suspicious abnormality. Electronically Signed: Christiano Eduardo, at 15:26 EDT , Service support ,
--- NOTE | 2019-12-04 13:27 | US_ITS ---
STUDY: ULTRASOUND BREAST - RIGHT REASON FOR EXAM: Female, 34 years old. Palpable lump in the right breast. TECHNIQUE: Axial and longitudinal images of the RIGHT breast were performed with a high resolution ultrasound transducer. # OF IMAGES: 24 COMPARISON: Comparison is made with prior mammogram done earlier in the day. FINDINGS: RIGHT Breast: The upper-outer quadrant of the right breast was examined by ultrasound. No sonographic abnormality is seen. US/Breast Limited Unilateral IMPRESSION: No sonographic abnormality is seen. ASSESSMENT CATEGORY: BIRADS Category 1: Negative. A letter regarding these results will be sent to the patient by the facility within 30 days. Electronically Signed: Christiano Eduardo, at 15:50 EDT , Service support ,
== END ==
LOC: OPBI 13:27
PROVIDERS: PCP Family Medicine; Referring Provider Nurse Practitioner Women's Health; Visit Provider Nurse Practitioner Women's Health
DX: N63.10 Unspecified lump in the right breast, unspecified quadrant (principal)
CPT/HCPCS: 76642; 77061; 77065; G0279

== ENCOUNTER 2020-02-07 16:34 | Observation (INO) | payer OTHER, SELFPAY ==
[2019-12-13 11:20] VITALS: BMI 29.4
[2020-02-07] VITALS (10 sets, daily range): BP systolic 111–136; BP diastolic 61–84; PULSE 70–109; RESP 14–18; TEMP 36.6–37.6; O2SAT 95–98; BMI 38.9
[2020-02-07 13:08] LABS: Internal QC Validated? YES +Cl - CLEAR BKGD; Pregnancy, Urine Negative Negative
[2020-02-07 13:21] LABS: Anion Gap 5 (5-15); BUN 8 mg/dL (7-18); BUN/Creat Ratio 11.2 RATIO (10-20); Chloride 105 mmol/L (98-107); Creatinine, Serum 0.72 mg/dL (0.55-1.02); EST Glomerular Filtration Rate 100 mL/min (>60); Est Glom Filt Rate - Afr Amer 121 mL/min (>60); Glucose 98 mg/dL (74-106); Potassium 3.9 mmol/L (3.5-5.1); Sodium Level 138 mmol/L (136-145)
[2020-02-07] MEDS: Lactated Ringers 1,000 ML 75 ML IV ×2 (13:30→16:54)
--- NOTE | 2020-02-07 14:25 | THYROID_PTH ---
PATIENT: AUSTIN RIVERA LOC: [facility] U#:[id number] AGE/SX: 34/F ROOM: [facility]316 RE02/07/[address]: Dr. Greg Foster MD : 1985 BED: 1 DIS: 02/08/2020 SPEC #: [id number] RECD: 02/10/20 07:44 STATUS: NYA REOtis #: [id number] CHARISMA: 02/07/20 14:[address]: Greg Foster DEPT: SURGICAL PATHOLOGY RECD BY: Juliano Medeiros ENTERED: 02/10/20 08:41 SP TYPE: THYROID OTHR DR: Dr. Nima Whitman MD Tissues: Thyroid gland, NOS Procedures: Surgery Specimen Level V HEADER OPERATION: Thyroidectomy PRE-OP DIAGNOSIS: Almaz thyroiditis, fatigue, reactive lymphadenopathy TISSUE SUBMITTED: Thyroid MICROSCOPIC DIAGNOSIS Thyroid, total thyroidectomy: Chronic lymphocytic thyroiditis (Almaz's thyroiditis). One lymph node with reactive changes. Unremarkable parathyroid tissue (superior portion of right and left thyroid lobes). DAMIEN:gricelda 02/11/20 MICROSCOPIC DESCRIPTION Slides are reviewed. GROSS DESCRIPTION Received in fixative is one container labeled with the patient's name and designated thyroid. The specimen consists of a total thyroidectomy specimen weighing 13 gm. The right lobe measures 5.5 x 2 x 1 cm and the left lobe measures 4.5 x 2.5 x 1 cm and the isthmus measures 1.5 x 0.5 x 0.5 cm. The specimen is inked as follows: posterior surface right lobe, left lobe and isthmus - black, anterior surface right lobe - blue, anterior surface left lobe - green and anterior surface isthmus - yellow. Sections reveal miller-white to thin, solid cut surfaces without any well-defined mass lesion. The entire specimen is submitted in 12 cassettes as follows: 1 - isthmus, 2-7 - right lobe (2 containing most superior portion and 7 containing most inferior portion), 8-12 - left lobe (8 containing most superior portion and 12 containing most inferior portion). / DAMIEN:gricelda 02/10/20 TC:3 CPT: 96239
--- NOTE | 2020-02-07 16:28 | OP.PCM_ITS ---
Problem List (1) Almaz's thyroiditis Status: Chronic (2) Thyromegaly Status: Chronic Comment: tsh slight elevated free t4 normal. Repeat TSH 3 months thyroid ultrasound Report of Operation Date of Procedure: 02/07/20 Pre-Operative Diagnosis: Thyromegaly and tenderness in setting of Almaz's thyroiditis Post-Operative Diagnosis: Same Surgery/Procedure Performed:: Total thyroidectomy with recurrent laryngeal nerve monitoring Description of Surgical Findings:: Lana is a 34-year-old female with persistent thyromegaly and tenderness in the setting of Almaz's thyroiditis. This tenderness and increasing anxiety has worsened despite maintenance of euthyroid state with supplemental thyroid hormone. Is persistent symptoms can be noted in Almaz's thyroiditis despite normalization of the thyroid hormone excision was offered in hopes of alleviation of these persistent complaints and she was agreeable to proceed. The risk of coronavirus exposure in this time with surgical procedures was discussed and she was accepting of this risk in the interest of treating her underlying complaints. The risks, alternatives, potential complications, and benefits were discussed at length and any questions answered to the patient and/or caregiver's satisfaction. Witnessed informed consent was obtained in the office, and the patient and/or caregiver was agreeable to proceed. Procedure went as follows: The patient was identified in the preoperative holding and brought to the operating room, placed under general anesthesia and intubated with a neuromonitoring tube. The grounding electrodes were then placed on the chest and confirmed to be operational in accordance with the fish cleaner machine tender's directions to allow for recurrent laryngeal nerve monitoring. The neck was then prepped and draped in usual sterile fashion and the planned skin incision was marked 2 finger breadths above the sternal notch with a marking pen. The incisional line was then injected with 1% lidocaine with 100,000 epinephrine for a total of 6 mL. After allowing for vasoconstriction, a 15 blade scalpel was used to make an incision 8 cm in length through the skin and subcutaneous tissues and platysma. A subplatysmal flap was then elevated superiorly and inferiorly to allow for placement of the self-retaining thyroid retractor. The strap muscles were then divided in the midline and beginning on the left side the thyroid lobe dissected in a sub-capsular fashion. There is noted to be extensive fibrosis and diffuse inflammatory change. The inferior, middle, and superior thyroid vessels were individually clamped and ligated with a combination of 3-0 silk sutures and vascular clips. The parathyroid glands were identified along the inferior vascular pedicle and preserved. The recurrent laryngeal nerve was also identified and followed to its nerve entry point and the thyroid gland dissected free of its attachments to the trachea at Broyle's ligament. Attention was then turned to the contralateral side where similar dissection was carried out and completed, again with preservation of the laryngeal nerve and parathyroid glands. The wound bed was then irrigated saline solution and examined for sites of bleeding. No significant bleeding was encountered and #7 flat drains were then placed into each tracheoesophageal groove and brought out through separate stab incisions in the neck and secured with 3-0 silk sutures. The strap muscles were then re-approximated in the midline with a running 3-0 Vicryl suture followed by interrupted 3-0 Vicryl sutures to close the platysma and subcutaneous tissues. A 5-0 Monocryl was then used to close the skin followed by Steri-Strips completing the procedure. The patient was then returned to anesthesia, revived and extubated having tolerated the procedure well. Type of Anesthesia:: General Anesthesiologist: Frederic Ken Special Medications: none Specimen's removed: total thyroid Drains: #7 flat PAIGE Estimated Blood Loss (mL): 50 mL Fluids Replaced: 1100 mL Grafts/Implants Used: none - Complications none - Admit VTE Documentation VTE Present on Admission: No VTE Mechan Device Prophylaxis: SCD's VTE Pharm Prophylaxis ordered?: No
--- NOTE | 2020-02-07 16:32 | DCINST_ITS ---
- Discharge Diagnoses Current Active Problems: Current Active and Chronic Problems (Last Reviewed 12/13/19 @ 11:[address] Serg Tran MD) Almaz's thyroiditis (Chronic) You will use the following diet at home:: No restrictions Discharge Activity: Return to Normal Activity, May not drive while taking narcotic pain medications. Call your doctor if your incision/area has: Increased Pain/ Swelling, Foul Smelling Discharge Call your doctor if you observe: Fever of 101 or Higher, Uncontrolled pain Allergies/Adverse Reactions: Allergies latex Allergy (Verified 02/03/20 08:28) Itching naproxen Allergy (Verified 02/03/20 08:28) Unknown Penicillins [PCN] Allergy (Verified 02/03/20 08:28) Rash ketorolac [From Toradol] Adverse Reaction (Verified 02/03/20 08:28) Other unknown, pt can't remember reaction ondansetron HCl [From Zofran (as hydrochloride)] Adverse Reaction (Verified 02/03/20 08:28) Other headaches Medications to take at Discharge prochlorperazine maleate 10 mg tablet 10 mg PO BID PRN 07/03/19 ketoprofen 50 mg capsule 75 mg PO Q6H PRN cap 08/26/19 levothyroxine 112 mcg tablet 112 mcg PO DAILY #32 tab 08/26/19 Primary Care Physician: Nima Whitman MD [Primary Care Provider] - Test Results: Test results from this visit will be discussed in further detail at your follow- up appointment, if applicable. Please Follow Up With: Greg Foster MD When: 2 weeks
[2020-02-07] MEDS: HYDROcodone Bitartrate/Apap 5/325 Tablet PO (20:12)
[2020-02-07] MEDS: Ibuprofen 400 MG Tablet PO (23:49)
[2020-02-08 02:15] VITALS: BP 113/59; PULSE 60; RESP 16; TEMP 36.2; O2SAT 98
[2020-02-08] MEDS: HYDROcodone Bitartrate/Apap 5/325 Tablet PO ×2 (02:20→08:44)
[2020-02-08] MEDS: Ibuprofen 400 MG Tablet PO (06:07)
[2020-02-08] MEDS: Levothyroxine 112 MCG Tablet PO (06:08)
[2020-02-08 06:15] VITALS: BP 106/66; PULSE 67; RESP 16; TEMP 36.4; O2SAT 99
[2020-02-08 06:43] LABS: Calcium,Total 8.4 mg/dL (8.5-10.1)
--- NOTE | 2020-02-08 09:32 | PN.SURG_ITS ---
Subjective: Where she has done well overnight with moderate neck pain well controlled with her oral pain medication. She denies any perioral numbness or tingling. She denies any hoarseness. Objective: Patient is resting comfortably in bed. Neck incision is clean dry and intact. Drain output is serous and nominal overnight. These are removed at the bedside. [place] sign is negative. - Physical Exam Vitals/I&O's: Vital Signs Temp Pulse Resp BP Pulse Ox 97.5 F L 67 16 106/66 99 02/08/20 06:15 02/08/20 06:15 02/08/20 06:15 02/08/20 06:15 02/08/20 06:15 Oxygen Delivery Method Room Air Weight: 109.4 kg Body Mass Index (BMI) 38.9 Intake and Output for Last 24 Hours 02/06/20 02/07/20 02/08/20 23:59 23:59 23:59 Intake Total 1106.25 / 2426.25 2580.75 / 2580.75 Output Total / Balance 1106.25 / 2419.25 2566.75 / 2566.75 General: Alert, Oriented x3, No apparent distress HEENT: Atraumatic, PERRLA Oral: Moist Mucosa Neck: Supple Lungs: Normal air movement, No rhonchi, No wheeze Cardiovascular: Regular rate, Regular Rhythm Skin: No rashes Psych/Mental Status: Alert and oriented to time, place, person, mood and affect Laboratory Results 02/07/20 12:47: Sodium 138, Potassium 3.9, Chloride 105, Carbon Dioxide 28.0, Anion Gap 5, BUN 8, Creatinine 0.72, Est GFR (MDRD) Af Amer 121, Est GFR (MDRD) Non-Af 100, BUN/Creatinine Ratio 11.2, Glucose 98, Calcium 9.0 02/07/20 12:55: Urine Test Negative 02/07/20 17:32: Calcium 9.0 02/08/20 06:07: Calcium 8.4 L Current Medications Acetaminophen (Tylenol) 500 mg PO Q4H PRN PRN PRN Reason: Pain Score 1-10/10 Hydrocodone Bitart/Acetaminophen ([place] 5mg-325mg) 1 tablet PO Q6H PRN PRN PRN Reason: Pain Score 6-10/10 Last Admin: 02/08/20 08:44 Dose: 1 tablet Documented by: Diphenhydramine HCl (Benadryl) 50 mg PO QHS PRN PRN PRN Reason: INSOMNIA Sodium Chloride () 250 mls @ 15 mls/hr IV .[id number] PRN PRN Reason: Saline Flush Ibuprofen (Motrin) 400 mg PO Q6H PRN PRN PRN Reason: Pain Score 4-1010 Last Admin: 02/08/20 06:07 Dose: 400 mg Documented by: Levothyroxine Sodium (Synthroid) 112 mcg PO DAILY@0600 [facility] Last Admin: 02/08/20 06:08 Dose: 112 mcg Documented by: Nutritional Formula (Lactose Free) (Ensure Enlive) 120 ml PO 4X/DAY [facility] Last Admin: 02/08/20 08:44 Dose: 120 ml Documented by: Prochlorperazine Maleate (Compazine Tablet) 10 mg PO BID PRN PRN Reason: MIGRAINE SYMPTOMS Promethazine HCl (Phenergan) 6.25 mg IV Q6H PRN PRN PRN Reason: NAUSEA/VOMITING Sodium Chloride () 10 - 40 ml IV UD PRN PRN Reason: SALINE FLUSH Medical Necessity - Tobacco Use Smoking Status: Current every day smoker Tobacco Use: Cigarettes Assessment/Plan All Active Problems (Last Reviewed 12/13/19 @ 11:[address] Serg Tran MD) Obesity (Acute) Abnormal uterine bleeding (AUB) (Acute) PCB (post coital bleeding) (Acute) Hypothyroid (Acute) Active labor at term (Resolved) Anxiety (Resolved) Gestational diabetes, diet controlled (Resolved) History of placenta abruption (Resolved) Hypothyroid (Resolved) Large for gestational age fetus (Resolved) Positive GBS test (Resolved) Rh negative state in antepartum period (Resolved) Supervision of normal (Resolved) Lana is doing well postoperative day #1 status post total thyroidectomy for Almaz's thyroiditis and thyromegaly with persistent neck pain and tenderness. She is healing well. Her calcium level is slightly low this morning however she is asymptomatic. We have discussed starting calcium supplementation which she has calcium at home and will start this today and is aware of the signs of low calcium but denies any currently. Her drains were removed today and I anticipate good healing. I am hopeful that removal of her thyroid will allow her reactive lymphadenopathy in neck swelling and tenderness complaints to resolve with a significant inflammatory autoimmune reaction noted at the time of surgery. She will follow-up in my office next week for suture removal. We will plan for discharge to home this morning.
[2020-02-08 10:15] VITALS: BP 110/65; PULSE 65; RESP 18; TEMP 36.9; O2SAT 98
[2020-02-08 10:40] VITALS: BP 110/65; PULSE 65; RESP 18; TEMP 36.9; O2SAT 98
--- NOTE | 2020-02-08 13:42 | NURSING ---
LATE ENTRY - 0930 - DR ROBIN IN TO SEE PT. MD LEWIS'Yanet PAIGE DRAINS.
== END 2020-02-08 10:40 | disposition home or self-care (01) ==
LOC: SDC 17:21 → MS3 17:22
PROVIDERS: Anesthesiology; Admitting Provider Otolaryngology; PCP Family Medicine; Referring Provider Otolaryngology; Visit Provider Otolaryngology
PROC: (CPT 60240; principal; 2020-02-07 14:05)
DX: E06.3 Autoimmune thyroiditis (principal); Z11.59 Encounter for screening for other viral diseases; F17.210 Nicotine dependence, cigarettes, uncomplicated; Z79.899 Other long term (current) drug therapy; K21.9 Gastro-esophageal reflux disease without esophagitis
CPT/HCPCS: 00320; 60240; 36415; 80048; 81025; 82310; 87635; 88307; 96360; 96361; 99218; 99406; C9803; J7120; G0378; J3490; U0003

== ENCOUNTER → 2020-02-17 11:39 | Outpatient (CLI) | payer OTHER, SELFPAY ==
[2020-02-07 18:05] VITALS: BMI 38.9
[2020-02-17 15:32] LABS: Calcium,Total 8.9 mg/dL (8.5-10.1)
== END ==
LOC: MTLAB 11:41
PROVIDERS: PCP Family Medicine; Referring Provider Otolaryngology; Visit Provider Otolaryngology
DX: E06.3 Autoimmune thyroiditis (principal)
CPT/HCPCS: 36415; 82310

== ENCOUNTER → 2020-03-12 | Outpatient (CLI) | payer OTHER, SELFPAY | END | disposition home or self-care (01) | LOC: LABSPEC 13:23 | PROVIDERS: PCP Family Medicine; Referring Provider Nurse Practitioner Women's Health; Visit Provider Nurse Practitioner Women's Health | DX: N91.2 Amenorrhea, unspecified (principal) | CPT/HCPCS: 87070; 87205 ==

== ENCOUNTER → 2020-03-14 10:16 | Outpatient (CLI) | payer OTHER, SELFPAY ==
[2020-02-07 18:05] VITALS: BMI 38.9
--- NOTE | 2020-03-14 10:17 | US_ITS ---
STUDY: ULTRASOUND OF THE FEMALE PELVIS - LIMITED REASON FOR EXAM: Female, 34 years old irregular menses TECHNIQUE: Transabdominal and Transvaginal TECHNICAL QUALITY: Adequate. COMPARISON: None. FINDINGS: The uterus is anteverted and is in a midline position. The uterus measures 8.9 x 5.3 x 4.1 cm. There is a Nabothian cyst of the cervix. The endometrium measures 8.2 mm in thickness, and is hyperechoic. There is no demonstrated endometrial mass. There is no demonstrated myometrial mass. The right ovary measures 2.7 x 3.3 x 2.2 cm. There is no right ovarian cyst or ovarian mass. There is no visualized right adnexal mass or complex lesion. There is normal arterial and normal venous vascularity. The left ovary measures 2.8 x 2.8 x 2.2 cm. There is no left ovarian cyst or ovarian mass. There is no visualized left adnexal mass or complex lesion. There is normal arterial and normal venous vascularity. There is no fluid in the cul-de-sac. US/Pelvic (Non ) IMPRESSION: Essentially unremarkable exam. Electronically Signed: Jeferson Garcia DO at 12:48 EDT Tel , Service support ,
--- NOTE | 2020-03-14 10:17 | US_ITS ---
STUDY: ULTRASOUND OF THE FEMALE PELVIS - LIMITED REASON FOR EXAM: Female, 34 years old irregular menses TECHNIQUE: Transabdominal and Transvaginal TECHNICAL QUALITY: Adequate. COMPARISON: None. FINDINGS: The uterus is anteverted and is in a midline position. The uterus measures 8.9 x 5.3 x 4.1 cm. There is a Nabothian cyst of the cervix. The endometrium measures 8.2 mm in thickness, and is hyperechoic. There is no demonstrated endometrial mass. There is no demonstrated myometrial mass. The right ovary measures 2.7 x 3.3 x 2.2 cm. There is no right ovarian cyst or ovarian mass. There is no visualized right adnexal mass or complex lesion. There is normal arterial and normal venous vascularity. The left ovary measures 2.8 x 2.8 x 2.2 cm. There is no left ovarian cyst or ovarian mass. There is no visualized left adnexal mass or complex lesion. There is normal arterial and normal venous vascularity. There is no fluid in the cul-de-sac. US/Transvaginal Non- IMPRESSION: Essentially unremarkable exam. Electronically Signed: Jeferson Garcia DO at 12:48 EDT Tel , Service support ,
== END ==
PROVIDERS: PCP Family Medicine; Referring Provider Nurse Practitioner Women's Health; Visit Provider Nurse Practitioner Women's Health
DX: N93.0 Postcoital and contact bleeding (principal); N93.9 Abnormal uterine and vaginal bleeding, unspecified
CPT/HCPCS: 76830; 76856

== ENCOUNTER 2020-03-24 18:52 | Emergency (ER) | payer OTHER, SELFPAY ==
[2020-03-24 18:52] VITALS: BP 107/42; PULSE 87; RESP 15; TEMP 36.3; O2SAT 100; BMI 39.6
[2020-03-24 19:14] LABS: Mucous, Urine 0 SEEN /hpf (<or=2+)
[2020-03-24 19:23] LABS: Absolute Lymphocyte Count 2.36 X10^3/uL (0.83-4.51); Absolute Neutrophil Count 2.8 X10^3/uL (2.0-7.7); Basophil# 0.03 X10^3/uL; Basophil% 0.5 % (0-1); Eosinophil# 0.17 X10^3/uL; Eosinophils% 2.9 % (0-5); Hematocrit 44.4 % (37-47); Hemoglobin 14.1 g/dL (12.0-15.0); Lymphocyte # 2.36 X10^3/ul (4.0); Lymphocyte % 40.8 % (19-41); Mean Corp Hgb Conc 31.8 g/dL (32-36); Mean Corpuscular Hgb 28.1 pg (27.0-32.0); Mean Corpuscular Volume 88.4 fL (81-99); Mean Platelet Vol. 10.6 fl (6.2-12.0); Monocyte# 0.43 X10^3/uL; Monocyte% 7.4 % (0-10); NRBC Flagged by Analyzer 0 % (0-5); Neutrophil # 2.77 X10^3/uL (2.7-7.7); Neutrophil % 47.9 % (47-70); Platelet Count 218 K/mm3 (150-450); RBC Distribution Width CV 13.6 % (11.6-14.6); RBC Distribution Width SD 43.7 fl (35.1-43.9); Red Blood Count 5.02 M/mm3 (4.2-5.4); White Blood Count 5.8 K/mm3 (4.4-11.0)
[2020-03-24 19:31] LABS: Bacteria RARE /hpf (None Seen); Color, Urine Yellow (Yellow); Glucose, Dipstick Normal (Normal); Ketone-Dipstick Negative (Negative); Leukocyte Esterase-Dipstick 25 /ul (Negative); Nitrite-Dipstick Negative (Negative); Occult Blood-Urine 250 /ul (Negative); Protein-Dipstick Negative (Negative); Specific Gravity, Urine 1.015 (1.002-1.030); Squamous Epithelial Cells - UA 5-10 SEEN /hpf (5-10); Urine Bilirubin Dipstick Negative (Negative); Urine Clarity Sl. Cloudy (Clear); Urine Urobilinogen Normal (Normal); Urine pH 6.5 (5.0 - 8.0); White Blood Cells 5-10 SEEN /hpf (0-5)
[2020-03-24 19:32] LABS: Red Blood Cells-Urine 10-25 SEEN /hpf (0-5)
[2020-03-24 19:35] LABS: Anion Gap 4 (5-15); BUN 9 mg/dL (7-18); BUN/Creat Ratio 10.1 RATIO (10-20); Calcium,Total 8.6 mg/dL (8.5-10.1); Chloride 107 mmol/L (98-107); Creatinine, Serum 0.89 mg/dL (0.55-1.02); EST Glomerular Filtration Rate 78 mL/min (>60); Est Glom Filt Rate - Afr Amer 94 mL/min (>60); Estimated Creatinine Clearance 84.95 ml/min; Glucose 110 mg/dL (74-106); Potassium 3.6 mmol/L (3.5-5.1); Sodium Level 139 mmol/L (136-145)
--- NOTE | 2020-03-24 19:45 | CT_ITS ---
STUDY: CT ABDOMEN AND PELVIS WITHOUT CONTRAST REASON FOR EXAM: Female, 34 years old. RUQ PAIN X 2 WEEKS, HX THYROIDECTOMY, SKIN CA RADIATION DOSAGE (If Supplied By Facility): CTDIvol = ( 19.37 ) mGy, DLP = ( 1026.19 ) mGycm TECHNIQUE: Transaxial images were obtained from the dome of the diaphragm to the symphysis pubis without oral contrast, and without intravenous contrast. Sagittal and coronal images were reconstructed. Individualized dose optimization techniques were used for this CT. COMPARISON: 11/28/2019. FINDINGS: There is minor interstitial thickening and focal nodular pleural thickening in both lower lobes. The visualized portions of the heart are within normal limits. The liver is enlarged but homogeneous attenuation without mass or bile duct dilatation. Normal gallbladder and extrahepatic biliary system. Borderline splenomegaly. Normal pancreas. Normal bilateral adrenal glands. Normal right kidney. Normal left kidney. Normal visualized stomach. Normal small intestine. Normal colon. The appendix is visualized and appears normal. Normal abdominal aorta. Normal inferior vena cava. Normal retroperitoneum. Normal urinary bladder. Small fat-containing umbilical hernia. Postsurgical changes of the right hip. CT/Abdomen/Pelvis without Cont IMPRESSION: Mild hepatosplenomegaly.. No acute abnormalities. Other findings as above Electronically Signed: Nima Castro MD at 20:46 EST , Service support ,
[2020-03-24 20:08] LABS: Internal QC Validated? YES +Cl - CLEAR BKGD; Pregnancy, Serum, hCG Quali. NEGATIVE Negative
--- NOTE | 2020-03-24 20:22 | ED.VIS.GEN ---
History of Present Illness Chief Complaint: Abd Pain Informant: Patient Onset: Weeks Maximum Severity: Mild Narrative: Right side abdominal pain for about a week the pain seems to come and go she has had this in the past the etiology of which is unclear, she had a recent thyroidectomy in January that was uncomplicated her other health conditions are stable. No coronavirus exposures no nausea or vomiting or fever normal bowel bladder habits able to eat and drink she was told at one time this was her gallbladder but initial studies were negative she did not follow-up for subsequent evaluation treatment nothing makes it better or worse she has had no change in her functional status Past Medical History - Allergies and Home Meds Allergies/Adverse Reactions: Allergies latex Allergy (Verified 03/24/20 18:52) Itching naproxen Allergy (Verified 03/24/20 18:52) Unknown Penicillins [PCN] Allergy (Verified 03/24/20 18:52) Rash ketorolac [From Toradol] Adverse Reaction (Verified 03/24/20 18:52) Other unknown, pt can't remember reaction ondansetron HCl [From Zofran (as hydrochloride)] Adverse Reaction (Verified 03/24/20 18:52) Other headaches Primary Care Physician: Nima Whitman MD [Primary Care Provider] - Past Medical History: - Surgical History: noncontributory Smoking Status: Current every day smoker Review of Systems ROS: - Clues as above General: Denies: Chills, Fever, Sweats Eyes: Denies: Visual changes - bilaterally, Diplopia ENT: Denies: Rhinorrhea, Sore throat Cardiovascular: Denies: Chest pain, Palpitations Respiratory: Denies: Dyspnea, Cough, Dyspnea on exertion Gastrointestinal: Reports: Abdominal pain. Denies: Nausea, Vomiting, Diarrhea, Melena, Hematochezia Genitourinary: Denies: Dysuria, Hematuria, Frequency Musculoskeletal: Denies: Back pain, Extremity Pain Skin: Denies: Rash, Wounds Neurological: Denies: Headache, Weakness, Numbness Physical Exam Vital Signs/Narrative: Vital Signs Temp Pulse Resp BP Pulse Ox 03/24/20 18:52 97.3 F L 87 15 107/42 L 100 General: Well nourished, Well developed, No Acute Distress Head: Normocephalic, Atraumatic Eyes: Perrl, EOMI ENT: Moist mucous membranes, No rhinorrhea, - - The neck incision for thyroidectomy is unremarkable Neck: Supple, Nontender Cardiovascular: Regular rate, Regular rhythm, No murmurs Respiratory: No distress, CTA bilaterally, Chest nontender Abdomen: Soft, Nontender, Nondistended, Normal bowel sounds, - - Is a nonspecific vague discomfort to the right side of the abdomen there is no rebound guarding organomegaly the back is unremarkable indicates the pain sometimes radiates to her back, Back: Nontender, Normal Inspection Extremities: Nontender, No edema Skin: Normal color, No rash Neurological: Alert, Oriented x3, Cranial nerves II-XII grossly intact, Normal Strength, Normal Sensation Psychological: Normal affect, Normal Mood Diagnostic/Tx/Re-eval - Medical Decision Making Is resting comfortably in the bed she is in no distress clinically she looks well she has this vague nonspecific pain to the right side abdomen that she has had on and off for months at this time given all of the above she indicates nothing really triggered it nothing made it better or worse she simply came in because this lasted for a week on and off she did not follow-up with her outpatient providers for this as instructed ED screening evaluation CT labs She is ED screening evaluation generally unremarkable there is microscopic hematuria, the labs CT of the abdomen pelvis otherwise generally unremarkable see all those reports I explained the above with her that the exact etiology of the above is unclear, she will take Naprosyn as needed bland diet and follow-up with her outpatient providers for further management as she understands that this intermittent right-sided pain remains cause is unclear and she agrees with outpatient management Home stable Final impression intermittent right-sided abdominal pain etiology unclear ED Disposition - Plan for ED Patient: Diagnosis: Abdominal pain Instructions: ED Abdominal Pain Unkn Cause Fem Prescriptions: Hydrocodone Bitart/Apap 5-325 [[place] 5MG-325MG] 1 tab PO Q4H PRN PRN 2 Days #10 tab PRN Reason: Pain Prescription Printed Referrals: Nima Whitman MD [Primary Care Provider] -
[2020-03-24] MEDS: 0.9% Normal Saline 1,000 ML 125 ML IV (20:34)
[2020-03-24 20:52] LABS: AST(SGOT) 18 U/L (15-37); Alanine Aminotransfer ALT/SGPT 37 U/L (13-56); Albumin, Serum 3.7 g/dL (3.2-5.0); Alkaline Phosphatase 82 U/L (45-117); Globulin 3.6 g/dL (2.2-4.2); Lipase 141 U/L (73-393); Protein, Total 7.3 g/dL (6.4-8.2)
[2020-03-24 21:27] VITALS: BP 130/91; PULSE 70; RESP 16; O2SAT 98
== END 2020-03-24 21:28 | disposition home or self-care (01) ==
LOC: ED 19:54
PROVIDERS: Emergency Provider Emergency Medicine; PCP Family Medicine
DX: R10.9 Unspecified abdominal pain (principal); F17.200 Nicotine dependence, unspecified, uncomplicated
CPT/HCPCS: 74176; 80048; 80053; 81001; 83690; 84703; 85025; 99283; J7030; A4216

== ENCOUNTER → 2020-04-01 10:19 | Outpatient (CLI) | payer OTHER, SELFPAY ==
[2020-03-24 18:52] VITALS: BMI 39.6
[2020-04-01 13:18] LABS: Calcium,Total 8.8 mg/dL (8.5-10.1); Thyroid Stim Hormone (TSH) 2.36 uIU/mL (0.358-3.74)
== END ==
PROVIDERS: PCP Family Medicine; Referring Provider Otolaryngology; Visit Provider Otolaryngology
DX: E06.3 Autoimmune thyroiditis (principal)
CPT/HCPCS: 36415; 82310; 84443

== ENCOUNTER 2020-04-06 17:24 | Emergency (ER) | payer OTHER, SELFPAY ==
[2020-04-03 13:30] VITALS: BMI 40.0
[2020-04-06 17:25] VITALS: BP 145/84; PULSE 84; RESP 16; TEMP 36; O2SAT 97; BMI 37.9
--- NOTE | 2020-04-06 18:06 | ED.DCSUM_ITS ---
History of Present Illness Chief Complaint: Dental Informant: Patient Onset: Days Context: Gradual Onset Current Severity: Severe Maximum Severity: Severe Narrative: Patient presents secondary left upper dental pain. She states she has a tooth that is black in color and will occasionally flareup on her. This past weekend she got significant pain. She talked to her dentist on Monday who called in a prescription for clindamycin for her. She is been taking this along with Tylenol and ibuprofen. Her dentist was not in the office today but should able to see her tomorrow. Because of swelling along her gums and roof of her mouth she went to urgent care. They sent her to the ER for further pain control stating that because she was already on antibiotics they could not offer her anything further. - Past Medical History (1) Hypothyroid Status: Chronic (2) Almaz's thyroiditis Status: Chronic Past Medical History - Allergies and Home Meds Allergies/Adverse Reactions: Allergies latex Allergy (Verified 04/06/20 17:26) Itching naproxen Allergy (Verified 04/06/20 17:26) Unknown Penicillins [PCN] Allergy (Verified 04/06/20 17:26) Rash ketorolac [From Toradol] Adverse Reaction (Verified 04/06/20 17:26) Other unknown, pt can't remember reaction ondansetron HCl [From Zofran (as hydrochloride)] Adverse Reaction (Verified 04/06/20 17:26) Other headaches Primary Care Physician: Nima Whitman MD [Primary Care Provider] - Surgical History: noncontributory, - - Thyroidectomy Lives: Spouse/ Significant Other Smoking Status: Current every day smoker Review of Systems General: Denies: Chills, Fever Eyes: Denies: Visual changes - bilaterally ENT: Reports: Left ear pain Cardiovascular: Denies: Chest pain Respiratory: Denies: Dyspnea, Cough Gastrointestinal: Denies: Abdominal pain, Nausea, Vomiting, Diarrhea Genitourinary: Denies: Dysuria Musculoskeletal: Denies: Extremity Pain Skin: Denies: Rash Neurological: Denies: Headache Hematologic: Denies: Easy bruising, Easy bleeding Allergy: Denies: Uticaria Physical Exam Vital Signs/Narrative: Vital Signs Temp Pulse Resp BP Pulse Ox 04/06/20 17:25 96.8 F L 84 16 145/84 H 97 Inital Vital Signs reviewed: Yes General: Well nourished, Well developed Head: Normocephalic ENT: Moist mucous membranes, - - Cerumen in the left external canal but TM is visible. It is unremarkable. Intraoral examination reveals the left maxillary first molar to be dark in color. There is mild surrounding gum edema. The left side of the roof of mouth is slightly edematous. Posterior pharynx examination is normal. Pa Neck: Supple, - - Submandibular space is soft. Cardiovascular: Regular rate, Regular rhythm Respiratory: No distress, CTA bilaterally Abdomen: Soft, Nontender Back: Nontender Extremities: Nontender Skin: Normal color Neurological: Alert, Oriented x3 Psychological: Normal affect Diagnostic/Tx/Re-eval - Medical Decision Making Patient be given 1 tab of [place] here with prescription for 10 tabs. She will follow with her dentist tomorrow as planned. ED Disposition - Plan for ED Patient: Disposition: Home or Assisted Living Diagnosis: Odontalgia Instructions: ED Tooth Pain Prescriptions: Hydrocodone Bitart/Apap 5-325 [[place] 5MG-325MG] 1 tablet PO Q6H PRN PRN 3 Days #10 tablet PRN Reason: Pain Transmission Status: Sent to [facility]30 Referrals: Nima Whitman MD [Primary Care Provider] - Additional Instructions: Follow-up with your dentist tomorrow as planned.
[2020-04-06] MEDS: HYDROcodone Bitartrate/Apap 5/325 Tablet PO (18:15)
[2020-04-06 18:38] VITALS: PULSE 88; RESP 17; O2SAT 97
== END 2020-04-06 18:39 | disposition home or self-care (01) ==
LOC: ED 18:14
PROVIDERS: Emergency Provider Emergency Medicine; PCP Family Medicine
DX: K08.89 Other specified disorders of teeth and supporting structures (principal); E06.3 Autoimmune thyroiditis; E03.9 Hypothyroidism, unspecified; F17.200 Nicotine dependence, unspecified, uncomplicated; Z79.899 Other long term (current) drug therapy
CPT/HCPCS: 99282

== ENCOUNTER 2020-04-23 16:15 | Emergency (ER) | payer OTHER, SELFPAY ==
[2020-04-23 16:16] VITALS: BP 153/98; PULSE 98; RESP 16; TEMP 36.4; O2SAT 99; BMI 37.9
--- NOTE | 2020-04-23 16:43 | CT_ITS ---
STUDY: CT SOFT TISSUE NECK WITH CONTRAST REASON FOR EXAM: Female, 34 years old. POSTOPERATIVE SWELLING, ASPIRATEE FB. THYROIDECTOMY RADIATION DOSAGE (If Supplied By Facility): CTDIvol = ( 17.55 ) mGy, DLP = ( 1146.63 ) mGycm TECHNIQUE: The patient was scanned in a multi-detector CT scanner. High resolution transaxial imaging was performed following intravenous administration of IV 75mL Isovue-370. Sagittal and coronal images were reconstructed. Individualized dose optimization techniques were used for this CT. COMPARISON: Prior neck CT exam of 10/26/2017. FINDINGS: Normal bilateral parotid glands. 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 Normal bilateral parapharyngeal spaces. Normal bilateral carotid spaces. Normal bilateral sublingual and submandibular glands and spaces. Normal visualized nasopharynx. Normal retropharyngeal space. Normal perivertebral space. Normal visualized bilateral faucial tonsils. The visualized tongue, tongue base and oropharynx are normal. There is a 1.6 x 1.3 x 0.7 cm left anterior cervical lymph node. Multiple other subcentimeter anterior and jugular cervical lymph nodes. There is a 2.0 x 1.3 x 0.7 cm right anterior cervical lymph node with other subcentimeter right anterior cervical lymph and jugular nodes. Lymph nodes have not changed substantially since 10/26/2017. Normal epiglottis, bilateral vallecula and hypopharynx. The pre-epiglottic and paraglottic adipose spaces are normal. Normal visualized bilateral piriform sinuses, aryepiglottic folds, vocal cords, and arytenoid-cricoid articulations. Normal subglottic trachea. The thyroid has been removed with no mass or focal fluid collection in the thyroid bed. Normal visualized pulmonary apices. Normal visualized paranasal sinuses. Minimal degenerative changes of the cervical spine. CT/Soft Tissue Neck WITH Contrast IMPRESSION: Essentially normal neck CT exam status post thyroidectomy. Lymph nodes as outlined above are stable from prior exam of 2018. Negative for foreign body Electronically Signed: Sandra Russell MD at 19:10 EST , Service support ,
--- NOTE | 2020-04-23 16:45 | ED.DCSUM_ITS ---
History of Present Illness Chief Complaint: Other, Pain/Inj Detail of Chief Complaint: neck pain/swelling Informant: Patient Onset: Days - 3 Context: Gradual Onset Timing: Continuous Quality: swelling and mild discomfort bilat anterior neck surgical incision Location: anterior neck Current Severity: Moderate Maximum Severity: Moderate Worsened by: palpation, flexing head forward/down Relieved by: leaving alone Associated Symptoms: see below. no fevers, odynophagia, rhinorrhea, congestion, cough Narrative: 34-year-old female presenting with a couple different complaints. She had Almaz's thyroiditis and as a result, inflamed swollen thyroid gland with thyroidectomy performed around 2-3 months ago. That was done by Dr. Foster, who currently is out along with his office staff will have Covid. Therefore she presents for evaluation of about 3 days of swelling to the lateral aspect bilaterally of the surgical incision in her neck and discomfort with flexing her head down that was there before, but not quite as bad. Additionally, earlier this afternoon, she ate at a [employer] restaurant and had tortilla chips. Her face mask was in her pocket. After eating, she got her face mask out and put it on. As she inhaled at one particular time, she felt a small piece of something get sucked up into her nose, and then she felt it down her throat and into her chest and is afraid she aspirated something. She does not know what it is, she hypothesized maybe it was a piece of tortilla chip the fell into her pocket but she does not know. The mass that she has on now was the same one she discusses having at that time, it has sequins on it. She has never had one of the sequins fall off and does not think that is what it is, but agrees it was the right size according to how it felt. She denies any dyspnea, pain with taking a deep breath, she indicates in her upper mid chest where the discomfort is, states it is similar but not as prominent as the sharp discomfort in her throat. It is relatively mild however. She also states for a year or 2 she has had a swollen area on the back of her neck, it used to be uncomfortable and sore but now it is not. For the past 2 months or so, which she has shown to Dr. Foster, she has had a mildly sore asymmetrically swollen area at the base of her neck on the left but on top and posterior to the clavicle. There has been no recent changes there or skin abn ormalities but she can feel there is something there, where there is not on the other side. - Past Medical History (1) PCOS (polycystic ovarian syndrome) Status: Chronic Comment: apri. checked labs 04/10. discussed lifestyle management and education/counseling provided (2) Almaz's thyroiditis Status: Chronic (3) Metabolic syndrome Status: Chronic (4) Multinodular goiter Status: Chronic (5) Personal history of malignant melanoma Status: Chronic (6) History of gestational diabetes Status: Inactive Past Medical History - Allergies and Home Meds Allergies/Adverse Reactions: Allergies latex Allergy (Verified 04/23/20 16:20) Itching naproxen Allergy (Verified 04/23/20 16:20) Unknown Penicillins [PCN] Allergy (Verified 04/23/20 16:20) Rash ketorolac [From Toradol] Adverse Reaction (Verified 04/23/20 16:20) Other unknown, pt can't remember reaction ondansetron HCl [From Zofran (as hydrochloride)] Adverse Reaction (Verified 04/23/20 16:20) Other headaches Primary Care Physician: Nima Whitman MD [Primary Care Provider] - Surgical History: - - Thyroidectomy Smoking Status: Current every day smoker Review of Systems General: Denies: Chills, Fever, Sweats Eyes: Denies: Visual changes - bilaterally, Diplopia ENT: Denies: Bilateral ear pain, Rhinorrhea, Sore throat Cardiovascular: Reports: Chest pain - see HPI. Denies: Palpitations Respiratory: Denies: Dyspnea, Cough, Dyspnea on exertion Gastrointestinal: Denies: Abdominal pain, Nausea, Vomiting, Diarrhea, Melena, Hematochezia Genitourinary: Denies: Dysuria, Hematuria, Frequency Musculoskeletal: Reports: Neck pain. Denies: Back pain, Extremity Pain Skin: Denies: Rash, Wounds Neurological: Denies: Headache, Weakness, Numbness Physical Exam Vital Signs/Narrative: Vital Signs Temp Pulse Resp BP Pulse Ox 04/23/20 16:16 97.5 F L 98 16 153/98 H 99 Inital Vital Signs reviewed: Yes General: Well nourished, Well developed, No Acute Distress Head: Normocephalic, Atraumatic Eyes: Perrl, EOMI ENT: Moist mucous membranes, No rhinorrhea, - - POP clear, normal-appearing, no asymmetry Neck: Supple, No lymphadenopathy - Mild tenderness just lateral to each extreme side of her anterior midline neck surgical incision, which is well-healed and without signs of dehiscence or infection. No palpable collection. No masses palpable. Subjectively tender but does not feel abnormal. , - - Also mildly tender swollen area that is not consistent with a mobile mass or node at the base of the anterior lateral left neck posterior to the clavicle and does not feel like a Virchow's node. Cardiovascular: Regular rate, Regular rhythm, No murmurs. Negative for: Tachycardia Respiratory: No distress, CTA bilaterally, Chest nontender Back: Nontender, Normal Inspection Extremities: Nontender, No edema Skin: Normal color, No rash - see neck. no signs of cellulitis. Neurological: Alert, Oriented x3, Cranial nerves II-XII grossly intact, Normal Strength, Normal Sensation, Normal Gait Psychological: Normal affect, Normal Mood Diagnostic/Tx/Re-eval Impressions Soft Tissue Neck CT 04/23/20 16:43 IMPRESSION: Essentially normal neck CT exam status post thyroidectomy. Lymph nodes as outlined above are stable from prior exam of 2018. Negative for foreign body Electronically Signed: Sandra Russell MD at 19:10 EST , Service support , Chest CT 04/23/20 17:57 IMPRESSION: No acute cardiopulmonary findings or changes. Negative for consolidation, atelectasis or pleural effusion. Stable scarring in the right lateral costophrenic angle. Normal heart without pericardial effusion or coronary calcifications. Normal thoracic aorta. Unremarkable nondistended esophagus with no visualized esophageal or pulmonary 4 and bodies. Electronically Signed: Sandra Russell MD at 19:15 EST , Service support , 04/23/20 16:43 CT Neck [Soft Tissue Neck WITH Contrast] [CT] Stat 04/23/20 17:57 Chest WITH Contrast [CT] Stat Laboratory Results 04/23/20 04/23/20 16:54 16:54 WBC 4.9 RBC 5.09 Hgb 14.4 Hct 43.8 MCV 86.1 MCH 28.3 MCHC 32.9 RDW Std Deviation 41.1 RDW Coeff of Mikel 13.1 Plt Count 195 MPV 11.4 Immature Gran % (Auto) 0.200 Neut % (Auto) 55.6 Lymph % (Auto) 30.3 Mcdonald % (Auto) 10.0 Eos % (Auto) 3.1 Baso % (Auto) 0.8 Absolute Neuts (auto) 2.7 Absolute Lymphs (auto) 1.48 Nucleated RBC % 0 Sodium 139 Potassium 3.7 Chloride 103 Carbon Dioxide 31.0 Anion Gap 5 BUN 10 Creatinine 0.94 Estim Creat Clear Calc 80.43 Est GFR (MDRD) Af Amer 88 Est GFR (MDRD) Non-Af 73 BUN/Creatinine Ratio 10.6 Glucose 102 Calcium 9.3 - Medical Decision Making Imaging is very reassuring, there is no postoperative clinical signs of infection, nor anything concerning in this area on imaging. There are some scattered reactive lymphadenopathy without any concerning areas of lymphadenopathy such as the mediastinum. I did discuss with the radiologist specifically about the areas that the patient was also concerned about, namely in the left base of the neck posterior to the clavicle, and right side base of the skull posterior neck. The latter appears to be a lymph node, the radiologist could not see anything abnormal in the area of the base of the left anterior neck. No obvious lipomas on imaging, she said there appeared to be symmetric subcutaneous fat only in the anterior base of the neck areas. I discussed all this with the patient in addition to the normal findings in her chest and lack of findings of small airways obstruction or any other radiopaque foreign body. She was advised that if she did aspirate a very small piece of food or corn chip, that supportive care is all that is indicated at this time and we discussed reasons to return. She is comfortable with that plan and following up with Dr. Foster as an outpatient when he is able. ED Disposition - Plan for ED Patient: Disposition: Home or Assisted Living Diagnosis: Other acute postoperative pain, Lump in neck, Aspiration of foreign body in respiratory tract, Cervical lymphadenopathy Instructions: ED Post Op Wound Check, Pain Referrals: Nima Whitman MD [Primary Care Provider] - Greg Foster MD [STAFF PHYSICIAN] - (when able)
[2020-04-23 17:10] LABS: Absolute Lymphocyte Count 1.48 X10^3/uL (0.83-4.51); Absolute Neutrophil Count 2.7 X10^3/uL (2.0-7.7); Basophil# 0.04 X10^3/uL; Basophil% 0.8 % (0-1); Eosinophil# 0.15 X10^3/uL; Eosinophils% 3.1 % (0-5); Hematocrit 43.8 % (37-47); Hemoglobin 14.4 g/dL (12.0-15.0); Lymphocyte # 1.48 X10^3/ul (4.0); Lymphocyte % 30.3 % (19-41); Mean Corp Hgb Conc 32.9 g/dL (32-36); Mean Corpuscular Hgb 28.3 pg (27.0-32.0); Mean Corpuscular Volume 86.1 fL (81-99); Mean Platelet Vol. 11.4 fl (6.2-12.0); Monocyte# 0.49 X10^3/uL; NRBC Flagged by Analyzer 0 % (0-5); Neutrophil # 2.71 X10^3/uL (2.7-7.7); Neutrophil % 55.6 % (47-70); Platelet Count 195 K/mm3 (150-450); RBC Distribution Width CV 13.1 % (11.6-14.6); RBC Distribution Width SD 41.1 fl (35.1-43.9); Red Blood Count 5.09 M/mm3 (4.2-5.4); White Blood Count 4.9 K/mm3 (4.4-11.0)
[2020-04-23 17:35] LABS: Anion Gap 5 (5-15); BUN 10 mg/dL (7-18); BUN/Creat Ratio 10.6 RATIO (10-20); Calcium,Total 9.3 mg/dL (8.5-10.1); Chloride 103 mmol/L (98-107); Creatinine, Serum 0.94 mg/dL (0.55-1.02); EST Glomerular Filtration Rate 73 mL/min (>60); Est Glom Filt Rate - Afr Amer 88 mL/min (>60); Estimated Creatinine Clearance 80.43 ml/min; Glucose 102 mg/dL (74-106); Potassium 3.7 mmol/L (3.5-5.1); Sodium Level 139 mmol/L (136-145)
--- NOTE | 2020-04-23 17:57 | CT_ITS ---
STUDY: CT CHEST WITH CONTRAST REASON FOR EXAM: Female, 34 years old. POSTOPERATIVE SWELLING, ASPIRATEE FB RADIATION DOSAGE (If Supplied By Facility): CTDIvol = ( 17.55 ) mGy, DLP = ( 1146.63 ) mGycm TECHNIQUE: Transaxial imaging was performed following intravenous administration of IV 75mL Isovue-370. Multiplanar coronal and sagittal images were reformatted. Individualized dose optimization techniques were used for this CT. COMPARISON: Chest CT exam of 06/21/2017 FINDINGS: The lung still are expanded without consolidation, atelectasis or pleural effusion. Small region of scarring in the lateral right costophrenic angle stable from prior exam. Normal heart and pericardium. Normal mediastinum. Normal hilar regions. Normal enhanced pulmonary arteries. Normal aorta arch and descending thoracic aorta. Normal osseous structures. No acute findings in the uppermost abdomen. Unremarkable esophagus with no foreign body. CT/Chest WITH Contrast IMPRESSION: No acute cardiopulmonary findings or changes. Negative for consolidation, atelectasis or pleural effusion. Stable scarring in the right lateral costophrenic angle. Normal heart without pericardial effusion or coronary calcifications. Normal thoracic aorta. Unremarkable nondistended esophagus with no visualized esophageal or pulmonary 4 and bodies. Electronically Signed: Sandra Russell MD at 19:15 EST , Service support ,
[2020-04-23 19:54] VITALS: BP 128/76; PULSE 62; RESP 15; O2SAT 98
== END 2020-04-23 20:04 | disposition home or self-care (01) ==
PROVIDERS: Emergency Provider Emergency Medicine; PCP Family Medicine
DX: G89.18 Other acute postprocedural pain (principal); M54.2 Cervicalgia; R59.0 Localized enlarged lymph nodes; T17.990A Other foreign object in respiratory tract, part unspecified in causing asphyxiation, initial encounter; X58.XXXA Exposure to other specified factors, initial encounter; Y93.9 Activity, unspecified; Y92.9 Unspecified place or not applicable; Y99.9 Unspecified external cause status; E89.0 Postprocedural hypothyroidism; E28.2 Polycystic ovarian syndrome; E88.81 Metabolic syndrome and other insulin resistance; Z79.899 Other long term (current) drug therapy; Z85.820 Personal history of malignant melanoma of skin; F17.200 Nicotine dependence, unspecified, uncomplicated
CPT/HCPCS: 70491; 71260; 80048; 85025; 96360; 96361; 99283; J7030; Q9967

== ENCOUNTER → 2020-05-07 15:40 | Outpatient (CLI) | payer OTHER, SELFPAY ==
[2020-05-07 15:22] VITALS: BMI 39.9
[2020-05-07 16:18] LABS: Follicle Stimulating Hormone 6.3 mIU/mL; Prolactin 10.5 ng/mL
[2020-05-11 21:01] LABS: Testosterone Free 2.2 pg/mL (0.0-4.2)
[2020-05-14 21:44] LABS: 17-Hydroxyprogesterone 50 ng/dL (.)
== END ==
PROVIDERS: PCP Family Medicine; Referring Provider Obstetrics & Gynecology; Visit Provider Obstetrics & Gynecology
DX: E28.2 Polycystic ovarian syndrome (principal)
CPT/HCPCS: 36415; 82627; 82670; 83001; 83498; 84146; 84402; 82626

== ENCOUNTER → 2020-05-08 13:23 | Outpatient (CLI) | payer OTHER, SELFPAY ==
[2020-05-07 15:22] VITALS: BMI 39.9
--- NOTE | 2020-05-08 13:32 | US_ITS ---
STUDY: ULTRASOUND BREAST - LEFT REASON FOR EXAM: Female, 35 years old. Pain in the left breast. TECHNIQUE: Axial and longitudinal images of the LEFT breast were performed with a high resolution ultrasound transducer. # OF IMAGES: 107 COMPARISON: Comparison is made with prior mammogram done earlier in the day. FINDINGS: LEFT Breast: The upper outer quadrant of the left breast was examined by ultrasound. No sonographic abnormality is seen. US/Breast Complete Unilateral IMPRESSION: No sonographic abnormality is seen. ASSESSMENT CATEGORY: BIRADS Category 1: Negative. A letter regarding these results will be sent to the patient by the facility within 30 days. Electronically Signed: Christiano Eduardo, at 15:05 EST , Service support ,
--- NOTE | 2020-05-08 13:32 | BI_ITS ---
MAMMOGRAPHY - UNILATERAL DIAGNOSTIC: LEFT BREAST REASON FOR EXAM: Female, 35 years old. 5-6 day history of left breast pain. PERTINENT HISTORY: Non-contributory. TECHNIQUE: Digital unilateral breast marla (3D mammographic acquisition) in the CC and MLO projections. 2-D mediolateral oblique (MLO) and craniocaudad (CC) views of both breasts were obtained. CAD: Full Field Digital Mammography with Computer Added Detection was performed. COMPARISON: Comparison is made with prior examination dated 07/22/2019. FINDINGS: Breast Composition: There are scattered areas of fibroglandular density. There are no dominant masses or suspicious calcifications. Stable benign-appearing right axillary lymph node. No other significant abnormalities are identified. There has been no significant change since the prior study. BI/DIAG MAMM W/CAD, UNILAT IMPRESSION: Stable unilateral diagnostic mammogram. With the patient''s history of left breast pain, correlation with ultrasound is recommended. ASSESSMENT CATEGORY: BIRADS Category 0: Incomplete. Need additional imaging evaluation. A letter regarding these results will be sent to the patient by the facility within 30 days. Approximately 10% of breast cancers are not detected by mammography. A normal mammogram should not delay biopsy of a clinically suspicious abnormality. Electronically Signed: Christiano Eduardo, at 14:52 EST , Service support ,
== END ==
PROVIDERS: PCP Family Medicine; Referring Provider Nurse Practitioner Women's Health; Visit Provider Nurse Practitioner Women's Health
DX: N63.20 Unspecified lump in the left breast, unspecified quadrant (principal); N64.4 Mastodynia
CPT/HCPCS: 76641; 77061; 77065; G0279

== ENCOUNTER 2020-05-25 17:36 | Emergency (ER) | payer OTHER, SELFPAY ==
[2020-05-07 15:22] VITALS: BMI 39.9
[2020-05-25 17:36] VITALS: BP 120/107; PULSE 96; RESP 16; TEMP 36.1; O2SAT 98; BMI 39.4
--- NOTE | 2020-05-25 17:57 | ED.DCSUM_ITS ---
- ER Visit Summary Date of Service: 05/25/20 Chief Complaint: Abdominal pain History of Present Illness: The patient is a 35 F presenting with abdominal pain. She states that this has been ongoing for the past 1 month. She states she started to have constipation and was straining with stool. She noticed intermittent blood in her stool. She states over the past 2 weeks she has had lower back pain and over the past 1 week she has had lower abdominal pain. She states she typically has 4-5 bowel movements per day and has been having decreased amount of bowel movements. She has tried MiraLAX and fiber gummies at home. She denies fever. Denies nausea or vomiting. Denies other complaints. Physical Examination: Vitals are stable. Patient is afebrile. Alert no acute distress. HEENT exam is unremarkable. Neck is supple. Lungs are clear and equal bilaterally. Heart is regular rate and rhythm. Abdomen is soft nontender nondistended. No guarding or rebound Extremities are unremarkable. Skin is warm and dry. No focal neurologic deficit. Remainder of exam is unremarkable. Emergency Department Course and Treatment: CBC, chemistries unremarkable. ALT 58. Lipase is normal. Urinalysis unremarkable. hCG negative. Stool is guaiac negative. CT abdomen pelvis shows no change or acute abnormality. Hepatosplenomegaly. Patient is resting comfortably on reevaluation. Advised to follow-up with her primary care physician and/or GI. Advised return to ED for worsening complaints. Disposition: Discharge home Impression: Abdominal pain This note was generated with [employer] dictation software. It may contain incorrect words, spelling, and punctuation that were not noted in review of the chart prior to signing ED Disposition - Plan for ED Patient: Instructions: ED Abdominal Pain Unkn Cause Fem Referrals: Nima Whitman MD [Primary Care Provider] -
[2020-05-25 18:10] LABS: Absolute Lymphocyte Count 1.49 X10^3/uL (0.83-4.51); Absolute Neutrophil Count 2.7 X10^3/uL (2.0-7.7); Basophil# 0.02 X10^3/uL; Basophil% 0.4 % (0-1); Eosinophil# 0.21 X10^3/uL; Eosinophils% 4.3 % (0-5); Hematocrit 42.7 % (37-47); Hemoglobin 14.6 g/dL (12.0-15.0); Lymphocyte # 1.49 X10^3/ul (4.0); Lymphocyte % 30.2 % (19-41); Mean Corp Hgb Conc 34.2 g/dL (32-36); Mean Corpuscular Hgb 29.8 pg (27.0-32.0); Mean Corpuscular Volume 87.1 fL (81-99); Monocyte# 0.46 X10^3/uL; Monocyte% 9.3 % (0-10); NRBC Flagged by Analyzer 0 % (0-5); Neutrophil # 2.74 X10^3/uL (2.7-7.7); Neutrophil % 55.4 % (47-70); Platelet Count 165 K/mm3 (150-450); RBC Distribution Width CV 13.4 % (11.6-14.6); RBC Distribution Width SD 41.3 fl (35.1-43.9); White Blood Count 4.9 K/mm3 (4.4-11.0)
[2020-05-25 18:14] LABS: Mucous, Urine 0 SEEN /hpf (<or=2+); Red Blood Cells-Urine 0 SEEN /hpf (0-5)
[2020-05-25 18:18] LABS: Color, Urine Yellow (Yellow); Glucose, Dipstick Normal (Normal); Ketone-Dipstick Negative (Negative); Leukocyte Esterase-Dipstick 25 /ul (Negative); Nitrite-Dipstick Negative (Negative); Occult Blood-Urine Negative /ul (Negative); Protein-Dipstick Negative (Negative); Specific Gravity, Urine 1.015 (1.002-1.030); Urine Bilirubin Dipstick Negative (Negative); Urine Clarity Clear (Clear); Urine Urobilinogen Normal (Normal); Urine pH 6.5 (5.0 - 8.0)
[2020-05-25 18:24] LABS: Bacteria 1+ /hpf (None Seen); Squamous Epithelial Cells - UA 10-25 SEEN /hpf (5-10); White Blood Cells 0-5 SEEN /hpf (0-5)
[2020-05-25 18:25] LABS: ALB/GLOB Ratio 1.1 RATIO (0.9-2.4); AST(SGOT) 24 U/L (15-37); Alanine Aminotransfer ALT/SGPT 58 U/L (13-56); Albumin, Serum 3.9 g/dL (3.2-5.0); Alkaline Phosphatase 78 U/L (45-117); Anion Gap 6 (5-15); BUN 6 mg/dL (7-18); BUN/Creat Ratio 7.9 RATIO (10-20); Calcium,Total 8.9 mg/dL (8.5-10.1); Chloride 106 mmol/L (98-107); Creatinine, Serum 0.76 mg/dL (0.55-1.02); EST Glomerular Filtration Rate 94 mL/min (>60); Est Glom Filt Rate - Afr Amer 113 mL/min (>60); Estimated Creatinine Clearance 98.56 ml/min; Globulin 3.6 g/dL (2.2-4.2); Glucose 97 mg/dL (74-106); Lipase 117 U/L (73-393); Potassium 3.6 mmol/L (3.5-5.1); Protein, Total 7.5 g/dL (6.4-8.2); Sodium Level 138 mmol/L (136-145)
[2020-05-25 18:44] LABS: Internal QC Validated? YES +Cl - CLEAR BKGD; Pregnancy, Serum, hCG Quali. NEGATIVE Negative
--- NOTE | 2020-05-25 19:25 | CT_ITS ---
STUDY: CT ABDOMEN AND PELVIS WITH CONTRAST REASON FOR EXAM: Female, 35 years old. ABD PAIN X 1 MONTH WITH BLOATING AND CONSTIPATION RADIATION DOSAGE (If Supplied By Facility): CTDIvol = ( 16.69 ) mGy, DLP = ( 1335.99 ) mGycm TECHNIQUE: Transaxial images were obtained from the dome of the diaphragm to the symphysis pubis with oral contrast. Oral and amp; IV Gastrografin and amp; 100mL Isovue-300 was administered. Sagittal and coronal images were reconstructed. Individualized dose optimization techniques were used for this CT. COMPARISON: 06/20/2019, 03/24/2020. FINDINGS: Limited views through the lower chest show several small stable probable scars in both lung bases. There is decreased attenuation of the liver consistent with steatosis. There is hepatomegaly. Normal gallbladder and extrahepatic biliary system. There is mild splenomegaly. Normal pancreas. Normal bilateral adrenal glands. Normal right kidney. Normal left kidney. Normal visualized stomach. Normal small intestine. Normal colon. The appendix is visualized and appears normal. Normal abdominal aorta. Normal inferior vena cava. Normal retroperitoneum. Normal urinary bladder. Normal visualized uterus. Stable 3 cm right ovarian cyst. Normal abdominal wall. Normal osseous structures. CT/Abdomen/Pelvis WITH Contrast IMPRESSION: No change or acute abnormality. Hepatosplenomegaly. Electronically Signed: Lobo Huston MD at 20:37 EST , Service support ,
[2020-05-25 19:40] VITALS: BP 127/76; PULSE 90; RESP 16; O2SAT 96
--- NOTE | 2020-05-25 21:03 | ED.DEP ---
ED Disposition - Plan for ED Patient: Instructions: ED Abdominal Pain Unkn Cause Fem Referrals: Nima Whitman MD [Primary Care Provider] -
[2020-05-25 21:12] VITALS: BP 138/69; PULSE 52; RESP 16; O2SAT 99
== END 2020-05-25 21:13 | disposition home or self-care (01) ==
PROVIDERS: Emergency Provider Emergency Medicine; PCP Family Medicine
DX: R10.30 Lower abdominal pain, unspecified (principal); M54.5 Low back pain; K59.00 Constipation, unspecified; K92.1 Melena; Z79.899 Other long term (current) drug therapy
CPT/HCPCS: 74177; 80053; 81001; 82274; 83690; 84703; 85025; 96360; 99285; J7040; Q9967; A4216

== ENCOUNTER → 2020-06-03 09:57 | Outpatient (CLI) | payer OTHER, SELFPAY ==
[2020-05-25 17:36] VITALS: BMI 39.4
--- NOTE | 2020-06-03 10:07 | RAD_ITS ---
STUDY: X-RAY - PELVIS REASON FOR EXAM: Female, 35 years old. Bilateral hip pain worse on the right. Arthritis. TECHNIQUE: One view of the pelvis was obtained. COMPARISON: CT of the abdomen and pelvis, 03/24/2020. FINDINGS: There is a non-specific bowel gas pattern. Normal visualized soft tissue structures. There are multiple calcified phleboliths. Normal bilateral iliac wings, sacroiliac joints and visualized sacrum. Normal visualized bilateral superior and inferior pubic rami. Normal pubic symphysis. Normal ischial tuberosities. There is a medullary britt in the proximal femoral shaft with transfixing screw. The femoral head and neck are intact and unremarkable. Normal right acetabulum. Normal right hip joint. Normal visualized left femoral head. Normal left acetabulum. Normal left hip joint. RAD/Pelvis 1 or 2 Views IMPRESSION: Medullary britt in the right femoral shaft. The pelvis is otherwise grossly unremarkable and unchanged. Electronically Signed: Ruben Stone DO at 17:05 EST Tel [phone], Service support ,
[2020-06-03 12:26] LABS: Basophil# 0.04 X10^3/uL; Basophil% 0.8 % (0-1); Eosinophil# 0.26 X10^3/uL; Eosinophils% 5.1 % (0-5); Hematocrit 45.5 % (37-47); Hemoglobin 14.3 g/dL (12.0-15.0); Lymphocyte % 27.7 % (19-41); Mean Corp Hgb Conc 31.4 g/dL (32-36); Mean Corpuscular Hgb 27.5 pg (27.0-32.0); Mean Corpuscular Volume 87.5 fL (81-99); Mean Platelet Vol. 11.7 fl (6.2-12.0); Monocyte# 0.36 X10^3/uL; Monocyte% 7.1 % (0-10); NRBC Flagged by Analyzer 0 % (0-5); Neutrophil # 2.99 X10^3/uL (2.7-7.7); Neutrophil % 59.1 % (47-70); Platelet Count 185 K/mm3 (150-450); RBC Distribution Width SD 41.7 fl (35.1-43.9); White Blood Count 5.1 K/mm3 (4.4-11.0)
[2020-06-03 12:41] LABS: Erythrocyte Sedimentation Rate 2 mm/hr (0-30)
[2020-06-03 12:53] LABS: AST(SGOT) 19 U/L (15-37); Alanine Aminotransfer ALT/SGPT 50 U/L (13-56); Albumin, Serum 3.8 g/dL (3.2-5.0); Alkaline Phosphatase 74 U/L (45-117); Anion Gap 4 (5-15); BUN 7 mg/dL (7-18); BUN/Creat Ratio 9.2 RATIO (10-20); CRP 4.09 mg/L (0.0-3.0); Chloride 107 mmol/L (98-107); Creatinine, Serum 0.76 mg/dL (0.55-1.02); EST Glomerular Filtration Rate 93 mL/min (>60); Est Glom Filt Rate - Afr Amer 113 mL/min (>60); Globulin 3.8 g/dL (2.2-4.2); Glucose 102 mg/dL (74-106); Potassium 3.8 mmol/L (3.5-5.1); Protein, Total 7.6 g/dL (6.4-8.2); Rheumatoid Factor < 10.0 IU/mL (<15); Sodium Level 138 mmol/L (136-145)
[2020-06-03 13:18] LABS: Hepatitis B Surface Antibody Non-Reactive; Hepatitis B Surface Antigen Non-Reactive (Nonreactive); Hepatitis C Antibody Non-Reactive (Nonreactive)
[2020-06-04 20:30] LABS: ANTINUCLEAR ANTIBODIES DIRECT Negative (Negative)
[2020-06-10 17:42] LABS: CCP IgG Antibodies 4 units (0-19); HLA B27 Negative (.)
== END ==
LOC: MTLAB 10:00
PROVIDERS: PCP Family Medicine; Referring Provider Internal Medicine Rheumatology; Visit Provider Internal Medicine Rheumatology
DX: M06.4 Inflammatory polyarthropathy (principal); K76.0 Fatty (change of) liver, not elsewhere classified; E89.0 Postprocedural hypothyroidism; G43.909 Migraine, unspecified, not intractable, without status migrainosus; F90.9 Attention-deficit hyperactivity disorder, unspecified type; F41.8 Other specified anxiety disorders; Z85.820 Personal history of malignant melanoma of skin
CPT/HCPCS: 36415; 72170; 80053; 81374; 85025; 85652; 86038; 86140; 86200; 86431; 86706; 86803; 87340

== ENCOUNTER → 2020-06-12 10:37 | Outpatient (CLI) | payer OTHER, SELFPAY ==
[2020-05-25 17:36] VITALS: BMI 39.4
--- NOTE | 2020-06-12 10:41 | US_ITS ---
STUDY: SUPERFICIAL ULTRASOUND - BILATERAL CERVICAL REGION REASON FOR EXAM: Female, 35 years old. NECK PAIN TECHNIQUE: A superficial ultrasound was performed with real-time and static gonzalez-scale imaging. COMPARISON: None. FINDINGS: The patient is status post total thyroidectomy. 3 benign appearing lymph nodes are seen in the right cervical region. The larger measures 2.4 cm x 1.4 cm x 1.1 cm. There are 3 well-defined benign-appearing lymph nodes are also seen in the left cervical region. The larger measures 2.6 cm x 1 cm x 0.6 cm. US/Head/Neck Soft Tissue IMPRESSION: Benign appearing bilateral cervical lymph nodes. Electronically Signed: Christiano Eduadro MD at 12:27 EST , Service support ,
== END ==
LOC: US 10:39
PROVIDERS: PCP Family Medicine; Referring Provider Otolaryngology; Visit Provider Otolaryngology
DX: M54.2 Cervicalgia (principal)
CPT/HCPCS: 76536

== ENCOUNTER 2020-06-20 17:06 | Emergency (ER) | payer OTHER, SELFPAY ==
[2020-06-20 17:07] VITALS: BP 148/60; PULSE 106; PULSE 99; RESP 16; TEMP 36.7; O2SAT 99; BMI 39.6
[2020-06-20 17:10] VITALS: BP 148/60; PULSE 106; RESP 16; TEMP 36.7; O2SAT 99
--- NOTE | 2020-06-20 18:20 | ED.DCSUM_ITS ---
- ER Visit Summary Date of Service: 06/20/20 Chief Complaint: Cough and fever History of Present Illness: The patient is a 35 F with a cough and fever since yesterday. She was exposed indirectly to Covid through her . Her felt slightly ill but is otherwise well. She has a history of PCOS, thyroid disease, she is a smoker. She has a BMI of 39.7. Physical Examination: Afebrile and vital signs unremarkable except for heart rate of 106. Patient in no acute distress. Alert and oriented. Heart regular. Lungs clear. Skin appears normal. Test Results: Covid was negative. Emergency Department Course and Treatment: Patient had Covid precautions. Symptoms sound like Covid. Her exam is reassuring. Vitals are reassuring. I do not suspect any other febrile illnesses given her history and physical. She will continue Covid precautions at home. Return for any new or worsening issues. Treatment Plan: As above Disposition: Discharge Impression: Febrile illness This note was generated with [employer] dictation software. It may contain incorrect words, spelling, and punctuation that were not noted in review of the chart prior to signing ED Disposition - Plan for ED Patient: Referrals: Nima Whitman MD [Primary Care Provider] -
--- NOTE | 2020-06-20 18:22 | ED.DEP ---
ED Disposition - Plan for ED Patient: Instructions: Coronavirus Disease 2019 (COVID-19): Overview Referrals: Nima Whitman MD [Primary Care Provider] -
[2020-06-20 18:34] VITALS: PULSE 97
== END 2020-06-20 18:35 | disposition home or self-care (01) ==
LOC: ED 17:38
PROVIDERS: Emergency Provider Emergency Medicine; PCP Family Medicine
DX: R50.9 Fever, unspecified (principal); R05 Cough; Z20.822 Contact with and (suspected) exposure to COVID-19; E28.2 Polycystic ovarian syndrome; E07.9 Disorder of thyroid, unspecified; F17.200 Nicotine dependence, unspecified, uncomplicated; Z79.899 Other long term (current) drug therapy
CPT/HCPCS: 87426; 99282

== ENCOUNTER 2020-07-01 04:21 | Emergency (ER) | payer OTHER, SELFPAY ==
[2020-07-01 04:22] VITALS: BP 113/101; PULSE 89; RESP 18; TEMP 36.4; O2SAT 99; BMI 39.9
--- NOTE | 2020-07-01 04:38 | EKG12_ITS ---
Test Reason : CP Blood Pressure : / mmHG Vent. Rate : 081 BPM Atrial Rate : 081 BPM P-R Int : 162 ms QRS Dur : 090 ms QT Int : 392 ms P-R-T Axes : 052 052 042 degrees QTc Int : 455 ms Normal sinus rhythm Normal ECG Confirmed by LARRY HARTMAN, RAYNA ([id number]), non linear editor JULIO HDEZ ([id number]) on 07/03/2020 8:40:13 AM Referred By: RICHARD Confirmed By:VERENICE JUAREZ MD
--- NOTE | 2020-07-01 04:38 | ED.DCSUM_ITS ---
History of Present Illness Chief Complaint: Chest Pain Informant: Patient Narrative: Patient stated that she was exposed to coronavirus a few days ago and is concerned. She has had some sore throat nasal congestion lymph node soreness mild dry cough achiness chest burning when she coughs and mild shortness of breath. Comes in for further evaluation. Negative Covid test approximately 10 days ago for different exposure. Denies fevers or chills. Denies cardiac history. 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 checked labs 04/10. discussed lifestyle priyanka gement and education/counseling provided (13) Personal history of malignant melanoma Status: Chronic (14) Smoker Status: Chronic (15) Thyromegaly Status: Chronic Comment: tsh slight elevated free t4 normal. Repeat TSH 3 months thyroid ultrasound (16) Unspecified open wound of left cheek and temporomandibular area, sequela Status: Chronic (17) History of gestational diabetes Status: Inactive Past Medical History - Allergies and Home Meds Allergies/Adverse Reactions: Allergies latex Allergy (Verified 07/01/20 04:25) Itching naproxen Allergy (Verified 07/01/20 04:25) Unknown Penicillins [PCN] Allergy (Verified 07/01/20 04:25) Rash ketorolac [From Toradol] Adverse Reaction (Verified 07/01/20 04:25) Other unknown, pt can't remember reaction ondansetron HCl [From Zofran (as hydrochloride)] Adverse Reaction (Verified 07/01/20 04:25) Other headaches Primary Care Physician: Nima Whitman MD [Primary Care Provider] - Prior records reviewed: Yes Past Medical History: - - See problem list Surgical History: - - Thyroidectomy Smoking Status: Current every day smoker Alcohol: None Drugs: None Review of Systems General: Denies: Chills, Fever, Sweats Eyes: Denies: Visual changes - bilaterally, Diplopia ENT: Reports: Sore throat. Denies: Rhinorrhea Cardiovascular: Reports: Chest pain. Denies: Palpitations Respiratory: Reports: Dyspnea, Cough. Denies: Dyspnea on exertion Gastrointestinal: Denies: Abdominal pain, Nausea, Vomiting, Diarrhea, Melena, Hematochezia Genitourinary: Denies: Dysuria, Hematuria, Frequency Musculoskeletal: Reports: Myalgias, Back pain. Denies: Extremity Pain Skin: Denies: Rash, Wounds Neurological: Denies: Headache, Weakness, Numbness Physical Exam Vital Signs/Narrative: Vital Signs Temp Pulse Resp BP Pulse Ox 07/01/20 04:22 97.6 F L 89 18 113/101 H 99 General: Well nourished, Well developed, No Acute Distress Head: Normocephalic, Atraumatic Eyes: Perrl, EOMI ENT: Moist mucous membranes, No rhinorrhea Neck: Supple, Nontender Cardiovascular: Regular rate, Regular rhythm, No murmurs Respiratory: No distress, CTA bilaterally, Chest nontender Abdomen: Soft, Nontender, Nondistended, Normal bowel sounds Back: Nontender, Normal Inspection Extremities: Nontender, No edema Skin: Normal color, No rash Neurological: Alert, Oriented x3, Cranial nerves II-XII grossly intact, Normal Strength, Normal Sensation Psychological: Normal affect, Normal Mood Diagnostic/Tx/Re-eval - Medical Decision Making Patient resting comfortably. EKG was obtained upon arrival shows normal sinus rhythm at a rate of 81 with no acute ischemia or arrhythmia. Lungs are clear to auscultation at 99% pulse ox. Of list patient with Covid pneumonia. I discussed chest x-ray with the patient. We would like to hold off at this time after discussing it together. I have a low suspicion for PE dissection or acute coronary syndrome. She is having URI symptoms. We will do a second Covid test and she will treat her symptoms at home and follow-up as an outpatient ED Disposition - Plan for ED Patient: Disposition: Home or Assisted Living Diagnosis: Viral syndrome Instructions: ED Viral Syndrome (Adult) Referrals: Nima Whitman MD [Primary Care Provider] -
[2020-07-01 04:41] VITALS: BP 122/71; PULSE 78; RESP 16; O2SAT 97
== END 2020-07-01 04:51 | disposition home or self-care (01) ==
LOC: ED 04:50
PROVIDERS: Emergency Provider Emergency Medicine; PCP Family Medicine
DX: B34.9 Viral infection, unspecified (principal); Z20.822 Contact with and (suspected) exposure to COVID-19; R05 Cough; J02.9 Acute pharyngitis, unspecified; R09.81 Nasal congestion; R06.02 Shortness of breath; E06.3 Autoimmune thyroiditis; E04.2 Nontoxic multinodular goiter; E88.81 Metabolic syndrome and other insulin resistance; E28.2 Polycystic ovarian syndrome; E66.9 Obesity, unspecified; F17.200 Nicotine dependence, unspecified, uncomplicated; Z79.899 Other long term (current) drug therapy; Z85.820 Personal history of malignant melanoma of skin
CPT/HCPCS: 87426; 93005; 99284; A4216

== ENCOUNTER → 2020-07-24 07:28 | Outpatient (CLI) | payer OTHER, MEDICAID, SELFPAY ==
[2020-07-01 04:22] VITALS: BMI 39.9
--- NOTE | 2020-07-24 07:45 | MRI_ITS ---
STUDY: MRI CERVICAL SPINE WITHOUT CONTRAST REASON FOR EXAM: Female, 35 years old. Neck and arm pain TECHNIQUE: Standardized fat and water weighted pulse sequences were obtained in the sagittal and axial planes. COMPARISON: CT 06/20/2019 FINDINGS: Normal foramen magnum and brainstem-cervical cord junction. Normal craniovertebral junction. Normal anterior atlantoaxial articulation. Normal odontoid process. There is reversal of the normal cervical lordosis. Normal vertebral bodies and posterior osseous elements. C2-3: Normal endplates. Normal disc height, signal and morphology. Normal central canal and intervertebral neural foramina. C3-4: Normal endplates. Normal disc height, signal and morphology. Normal central canal and intervertebral neural foramina. C4-5: Small central disc protrusion produces mild spinal stenosis but with abutment of the central spinal cord. C5-6: Small central disc protrusion produces mild spinal stenosis but abutment the central spinal cord. C6-7: Normal endplates. Normal disc height, signal and morphology. Normal central canal and intervertebral neural foramina. C7-T1: Normal endplates. Normal disc height, signal and morphology. Normal central canal and intervertebral neural foramina. Normal cervical cord. Normal visualized soft tissue structures. MRI/Spine Cervical (Routine) IMPRESSION: Mild degenerative disc disease with reversal normal lordotic curvature possibly from muscular spasm. Electronically Signed: Erik Odonnell MD at 12:44 EST Tel , Service support ,
--- NOTE | 2020-07-24 08:30 | MRI_ITS ---
STUDY: MRI LUMBAR SPINE WITHOUT CONTRAST REASON FOR EXAM: Female, 35 years old. Back and leg pain TECHNIQUE: Standardized fat and water weighted pulse sequences were obtained in the sagittal and axial planes. COMPARISON: X-ray 06/20/2019 FINDINGS: T12-L1: Normal endplates. Normal disc height, hydration and morphology. Normal bilateral facet joints. Normal central canal and bilateral lateral recesses. Normal bilateral intervertebral neural foramina. Normal lumbar lordosis. There is no substantial scoliosis. Normal conus medullaris that terminates at the L1. L1-2: Normal endplates. Normal disc height, hydration and morphology. Normal bilateral facet joints. Normal central canal and bilateral lateral recesses. Normal bilateral intervertebral neural foramina. L2-3: Normal endplates. Normal disc height, hydration and morphology. Normal bilateral facet joints. Normal central canal and bilateral lateral recesses. Normal bilateral intervertebral neural foramina. L3-4: Normal endplates. Normal disc height, hydration and morphology. Normal bilateral facet joints. Normal central canal and bilateral lateral recesses. Normal bilateral intervertebral neural foramina. L4-5: Small right foraminal protrusion produces moderate right neural foraminal stenosis with abutment of the right L4 nerve root. No central spinal stenosis. L5-S1: Normal endplates. Normal disc height, hydration and morphology. Normal bilateral facet joints. Normal central canal and bilateral lateral recesses. Normal bilateral intervertebral neural foramina. Normal visualized sacral ala. Normal visualized paraspinous soft tissue structures. MRI/Spine Lumbar (Routine) IMPRESSION: Right foraminal protrusion at L4/L5 produces moderate neural foraminal stenosis with abutment of the right L4 nerve root. No central spinal stenosis. Electronically Signed: Erik Odonnell MD at 9:39 EST Tel , Service support ,
== END ==
PROVIDERS: PCP Family Medicine; Referring Provider Anesthesiology Pain Medicine; Visit Provider Anesthesiology Pain Medicine
DX: M54.2 Cervicalgia (principal); M54.9 Dorsalgia, unspecified; M79.603 Pain in arm, unspecified; M79.606 Pain in leg, unspecified
CPT/HCPCS: 72141; 72148

== ENCOUNTER → 2020-08-19 12:15 | Outpatient (CLI) | payer OTHER, MEDICAID, SELFPAY ==
[2020-08-11 10:00] VITALS: BMI 39.6
[2020-08-19 13:54] LABS: Amphetamine Urine VISTA NEGATIVE (<1000 ng/mL); Barbiturate Urine VISTA NEGATIVE (< 200 ng/mL); Benzodiazepine Urine VISTA NEGATIVE (< 200 ng/mL); Cocaine Urine VISTA NEGATIVE (< 300 ng/mL); Ecstacy Urine VISTA NEGATIVE (< 500 ng/mL); Methadone Urine VISTA NEGATIVE (< 300 ng/mL); PCP Urine VISTA NEGATIVE (< 25 ng/mL); THC Urine VISTA NEGATIVE (< 50 ng/mL); Vista UDS pH Range 6
== END ==
PROVIDERS: PCP Family Medicine; Referring Provider Anesthesiology Pain Medicine; Visit Provider Anesthesiology Pain Medicine
DX: F11.20 Opioid dependence, uncomplicated (principal)
CPT/HCPCS: 80307

== ENCOUNTER 2020-09-08 02:57 | Emergency (ER) | payer OTHER, MEDICAID, SELFPAY ==
[2020-08-20 08:14] VITALS: BMI 39.2
[2020-09-08 02:57] VITALS: BP 138/94; PULSE 90; RESP 19; TEMP 35.8; O2SAT 98; BMI 40.2
--- NOTE | 2020-09-08 03:08 | EKG12_ITS ---
Test Reason : CP Blood Pressure : / mmHG Vent. Rate : 085 BPM Atrial Rate : 085 BPM P-R Int : 164 ms QRS Dur : 086 ms QT Int : 372 ms P-R-T Axes : 058 060 049 degrees QTc Int : 442 ms Normal sinus rhythm Normal ECG Confirmed by ETHEL HARTMAN, PEARL ([id number]), telegraph editor MICHELL BEEBE ([id number]) on 09/09/2020 1:09:54 PM Referred By: KRISTIN Confirmed By:PEARL DAVENPORT MD
--- NOTE | 2020-09-08 03:08 | RAD_ITS ---
STUDY: X-RAY CHEST REASON FOR EXAM: Female, 35 years old. chest pain TECHNIQUE: Single AP portable view of the chest. COMPARISON: None. FINDINGS: The lungs are clear and expanded. There is no demonstrated pleural abnormality. Normal size heart. Normal mediastinum and tho. Normal visualized pulmonary arteries. Normal visualized aortic arch and descending thoracic aorta. Normal visualized thoracic spine. Normal visualized ribs, clavicles, and shoulders. There is no demonstrated abnormality of the visualized soft tissue structures of the upper abdomen. RAD/Chest PA and Lateral IMPRESSION: Normal x-ray examination of the chest. Electronically Signed: Kristi Vanegas MD at 3:49 EDT Tel , Service support ,
--- NOTE | 2020-09-08 03:10 | ED.VIS.GEN ---
History of Present Illness Chief Complaint: Chest Pain Informant: Patient Onset: Days Context: Gradual Onset Narrative: Patient is a 35-year-old female presenting with dizziness and chest pressure. Patient states she has been feeling off balance in the past 2 weeks. She does note she has had increased hair loss. Yesterday she had episode lasting for 30 to 45 minutes or she was sweating, felt lightheaded and dizzy. She notes she felt lightheaded more so when she stood up. She states that she has intermittent chest discomfort starting the other day. She states in the center of her chest that radiates to her upper back and underneath her breast. Is worse with movement and better if she takes her bra off. She notes she does have some pain with coughing. She does have a chronic cough secondary to tobacco use. She denies any production of sputum. She denies any swelling of her legs. Denies any history of DVT or PE. She notes she does have history of anxiety as well as Almaz thyroiditis status post thyroidectomy. No other complaints at this time. Past Medical History - Allergies and Home Meds Allergies/Adverse Reactions: Allergies promethazine [From Phenergan] Allergy (Unknown, Verified 08/20/20 08:12) Unknown latex Allergy (Verified 08/20/20 08:12) Itching naproxen Allergy (Verified 08/20/20 08:12) Unknown Penicillins [PCN] Allergy (Verified 08/20/20 08:12) Rash escitalopram [From Lexapro] Adverse Reaction (Intermediate, Verified 08/20/20 08:12) Lightheaded Made her feel light headed and issues with focus. sertraline [From Zoloft] Adverse Reaction (Intermediate, Verified 08/20/20 08:12) Dizzy & Headache dicyclomine [From Bentyl] Adverse Reaction (Unknown, Verified 08/20/20 08:12) Unknown ondansetron HCl [From Zofran (as hydrochloride)] Adverse Reaction (Unknown, Verified 08/20/20 08:12) Migraine ketorolac [From Toradol] Adverse Reaction (Verified 08/20/20 08:12) Other unknown, pt can't remember reaction Primary Care Physician: Nima Whitman MD [Primary Care Provider] - Past Medical History: - - Anxiety, Almaz's thyroiditis Surgical History: - - Thyroidectomy Lives: With Family Smoking Status: Current every day smoker Review of Systems General: Reports: Malaise. Denies: Chills, Fever, Sweats Eyes: Denies: Visual changes - bilaterally, Diplopia ENT: Denies: Rhinorrhea, Sore throat Cardiovascular: Reports: Chest pain. Denies: Palpitations, Heart racing Respiratory: Reports: Cough. Denies: Dyspnea, Dyspnea on exertion Gastrointestinal: Denies: Abdominal pain, Nausea, Vomiting, Diarrhea, Melena, Hematochezia Genitourinary: Denies: Dysuria, Hematuria, Frequency Musculoskeletal: Denies: Back pain, Extremity Pain Skin: Denies: Rash, Wounds Neurological: Denies: Headache, Weakness, Numbness Physical Exam Vital Signs/Narrative: Vital Signs Temp Pulse Resp BP Pulse Ox 09/08/20 02:57 96.5 F L 90 19 H 138/94 H 98 Inital Vital Signs reviewed: Yes General: Well nourished, Well developed, No Acute Distress Head: Normocephalic, Atraumatic Eyes: Perrl, EOMI ENT: Moist mucous membranes, No rhinorrhea Neck: Supple, Nontender Cardiovascular: Regular rate, Regular rhythm, No murmurs Respiratory: No distress, CTA bilaterally, Chest tenderness - Center of the chest, no associated crepitus Abdomen: Soft, Nontender, Nondistended, Normal bowel sounds Back: Nontender, Normal Inspection Extremities: Nontender, No edema Skin: Normal color, No rash Neurological: Alert, Oriented x3, Cranial nerves II-XII grossly intact, Normal Strength, Normal Sensation Psychological: Normal affect, Normal Mood, - - Anxious Diagnostic/Tx/Re-eval Chest X-Ray - ED: 2 View, Read by ED Physician, Read by Radiologist, No Acute Disease Clinical Impression(s) from Imaging Studies Chest X-Ray 09/08/20 03:08 IMPRESSION: Normal x-ray examination of the chest. Electronically Signed: Kristi Vanegas MD at 3:49 EDT Tel , Service support , Laboratory Data 09/08/20 09/08/20 03:15 03:15 WBC 6.2 RBC 5.10 Hgb 13.9 Hct 43.7 MCV 85.7 MCH 27.3 MCHC 31.8 L RDW Std Deviation 40.3 RDW Coeff of Mikel 12.9 Plt Count 178 MPV 11.0 Immature Gran % (Auto) 0.300 Neut % (Auto) 51.9 Lymph % (Auto) 34.6 Whitfield % (Auto) 7.9 Eos % (Auto) 4.8 Baso % (Auto) 0.5 Absolute Neuts (auto) 3.2 Absolute Lymphs (auto) 2.15 Nucleated RBC % 0 Sodium 137 Potassium 3.8 Chloride 105 Carbon Dioxide 28.0 Anion Gap 4 L BUN 10 Creatinine 0.79 Estim Creat Clear Calc 94.82 Est GFR (MDRD) Af Amer 107 Est GFR (MDRD) Non-Af 89 BUN/Creatinine Ratio 12.6 Glucose 114 H Calcium 8.7 Troponin I < 0.015 TSH 15.50 H - Rhythm Strip Rhythm Strip: Sinus Rhythm Rate: 85 Ectopy: None - EKG Initial EKG Interpretation: Sinus Rhythm, - - Sinus rhythm at a rate of 85 Normal axis Normal intervals Normal ST segments No change from prior EKG on 07/01/2020 - Medical Decision Making Evaluated for chest discomfort with some present for the past few days. She appears nontoxic in no acute distress. She also notes she has been feeling more tired and generally worse lately. Patient is low risk for ACS however she does use tobacco. EKG does not show any acute ischemic changes. Troponin is negative. Patient is PE RC negative. I do not think she has a PE and I do not think a D-dimer or CTA of the chest is indicated at this time. Patient's work-up is remarkable for mildly elevated TSH. Is possible that she might need a higher dose of Synthroid and this could be causing some of her malaise. Patient also recently had a in the family and is going through some bereavement. Her chest pain seems to be more chest wall pain that cardiac or pulmonary. Patient was counseled on this. She is given return precautions. She verbalizes agreement understand with this plan. She is given a work note per her request. ED Disposition - Plan for ED Patient: Disposition: Home or Assisted Living Diagnosis: Chest wall pain Instructions: ED Chest Wall Pain, Costochondritis Referrals: Nima Whitman MD [Primary Care Provider] - Additional Instructions: Your thyroid level is slightly low, (elevated TSH). 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
[2020-09-08 03:24] LABS: Absolute Lymphocyte Count 2.15 X10^3/uL (0.83-4.51); Absolute Neutrophil Count 3.2 X10^3/uL (2.0-7.7); Basophil# 0.03 X10^3/uL; Basophil% 0.5 % (0-1); Eosinophils% 4.8 % (0-5); Hematocrit 43.7 % (37-47); Hemoglobin 13.9 g/dL (12.0-15.0); Lymphocyte # 2.15 X10^3/ul (0.83-4.51); Lymphocyte % 34.6 % (19-41); Mean Corp Hgb Conc 31.8 g/dL (32-36); Mean Corpuscular Hgb 27.3 pg (27.0-32.0); Mean Corpuscular Volume 85.7 fL (81-99); Monocyte# 0.49 X10^3/uL; Monocyte% 7.9 % (0-10); NRBC Flagged by Analyzer 0 % (0-5); Neutrophil # 3.23 X10^3/uL (2.7-7.7); Neutrophil % 51.9 % (47-70); Platelet Count 178 K/mm3 (150-450); RBC Distribution Width CV 12.9 % (11.6-14.6); RBC Distribution Width SD 40.3 fl (35.1-43.9); White Blood Count 6.2 K/mm3 (4.4-11.0)
[2020-09-08 04:15] LABS: Anion Gap 4 (5-15); BUN 10 mg/dL (7-18); BUN/Creat Ratio 12.6 RATIO (10-20); Calcium,Total 8.7 mg/dL (8.5-10.1); Chloride 105 mmol/L (98-107); Creatinine, Serum 0.79 mg/dL (0.55-1.02); EST Glomerular Filtration Rate 89 mL/min (>60); Est Glom Filt Rate - Afr Amer 107 mL/min (>60); Estimated Creatinine Clearance 94.82 ml/min; Glucose 114 mg/dL (74-106); Potassium 3.8 mmol/L (3.5-5.1); Sodium Level 137 mmol/L (136-145)
[2020-09-08 04:52] VITALS: BP 123/76; PULSE 88; RESP 16; O2SAT 98
== END 2020-09-08 04:53 | disposition home or self-care (01) ==
PROVIDERS: Emergency Provider Emergency Medicine; PCP Family Medicine
DX: R07.89 Other chest pain (principal); R42 Dizziness and giddiness; E06.3 Autoimmune thyroiditis; E89.0 Postprocedural hypothyroidism; F41.9 Anxiety disorder, unspecified; F17.200 Nicotine dependence, unspecified, uncomplicated; Z79.890 Hormone replacement therapy; Z79.899 Other long term (current) drug therapy
CPT/HCPCS: 71046; 80048; 84443; 84484; 85025; 93005; 99283; A4216

== ENCOUNTER 2020-09-15 01:00 | Emergency (ER) | payer OTHER, MEDICAID, SELFPAY ==
[2020-09-09 14:29] VITALS: BMI 39.2
--- NOTE | 2020-09-15 22:58 | EX.ED.DYSGE1 ---
[facility] Medical History (Updated 09/09/20 @ 00:01 by Lorraine Greco) ADHD (attention deficit hyperactivity disorder), combined type Back problem Bone fracture NICOLÁS (generalized anxiety disorder) Almaz's thyroiditis History of blood transfusion History of gestational diabetes History of skin cancer Melanoma Migraine without aura and with status migrainosus, not intractable Numbness and tingling of both upper extremities Numbness of both lower extremities Post herpetic neuralgia Thyroid disease Home Medications prochlorperazine maleate 10 mg tablet 10 mg PO BID PRN 07/03/19 [History Last Taken Unknown] ketoprofen 50 mg capsule 75 mg PO Q6H PRN cap 08/26/19 [History Last Taken Unknown] levothyroxine 112 mcg tablet 112 mcg PO DAILY #32 tab 08/06/20 [Rx Last Taken Unknown] dextroamphetamine-amphetamine ER 15 mg 24hr capsule,extend release 15 mg PO DAILY cap 08/19/20 [History Last Taken Unknown] hydrocodone-acetaminophen 5-325mg 5mg-325mg 1 tablet PO BID tablet 08/19/20 [History Last Taken Unknown] arm brace #2 each 08/20/20 [Rx Last Taken Unknown] baclofen 10 mg tablet 10 mg PO TID PRN #90 tablet 08/20/20 [Rx Last Taken Unknown] Allergy/AdvReac Type Severity Reaction Status Date / Time promethazine [From Phenergan] Allergy Unknown Unknown Verified 08/20/20 08:12 latex Allergy Itching Verified 08/20/20 08:12 naproxen Allergy Unknown Verified 08/20/20 08:12 Penicillins [PCN] Allergy Rash Verified 08/20/20 08:12 escitalopram [From Lexapro] AdvReac Intermediate Lightheaded Verified 08/20/20 08:12 sertraline [From Zoloft] AdvReac Intermediate Dizzy & Verified 08/20/20 08:12 Headache dicyclomine [From Bentyl] AdvReac Unknown Unknown Verified 08/20/20 08:12 ondansetron HCl AdvReac Unknown Migraine Verified 08/20/20 08:12 [From Zofran (as hydrochloride)] ketorolac [From Toradol] AdvReac Other Verified 08/20/20 08:12 Family History Grandmother Diabetes Other Family history of skin cancer High cholesterol Hypertension Surgical History History of surgery on arm History of thyroidectomy Lower extremity surgery planned Social History (Updated 09/09/20 @ 15:[address] Mo Washington, DO) Smoking Status: Current every day smoker Tobacco: How many years used: 13 Electronic Cigarette Use: not used second hand exposure: No alcohol intake: current alcohol intake frequency: holidays/special occasions only substance use type: does not use caffeine: Yes what type of physical activity do you participate in: none seatbelt use: always do you feel safe at home: Yes additional social history: emmy [facility] Treatment and Re-Evaluation Comments:: This ED summary was dictated on September 30. The patient was seen on September 15 during computer downtime for installation of the new software. Please refer to the separate template. Patient presents with a sore throat for several months. Worse over the last 2 days, pain is bilateral, with lymphadenopathy. No fever or other associated symptoms. She had her thyroid removed in January 2020. Afebrile and vital signs unremarkable. She has some anterior cervical lymphadenopathy. Thyroid area is nontender with no masses. Airway intact. Good range of motion of her neck. No meningeal signs. Skin appears normal. Cranial nerves grossly intact. Lymphadenopathy Patient recently had her thyroid medication changed. She is not due for a check of her TSH at this point. No signs of infection. She declined strep testing. It sounds like she was interested in an ultrasound. This was not available emergently at this time of night. I do not believe the patient needs one emergently. She will follow up with her ENT. Treated with Decadron. Advised anti-inflammatories. Return for any new or worsening issues. Discharged in stable condition. Discharge Plan Triage ED Provider: Germán Ortiz Dx/Rx/DC Orders Prescriptions: No Action prochlorperazine maleate [Compazine] 10 mg tablet 10 mg PO BID PRN (Reason: Migraine Symptoms) RF: 0 ketoprofen 50 mg capsule 75 mg PO Q6H PRN (Reason: Migraine Symptoms) RF: 0 dextroamphetamine-amphetamine 15 mg capsule,extended release 24hr 15 mg PO DAILY RF: 0 hydrocodone-acetaminophen 5-325 mg tablet 1 tablet PO BID RF: 0 (DME) Wrist Brace Misc See Rx Instructions .ROUTE .MEDSUPPLY Qty: 2 RF: 0 baclofen 10 mg tablet 10 mg PO TID PRN (Reason: muscle pain/spasm) Qty: 90 RF: 1 levothyroxine 112 mcg tablet 112 mcg PO DAILY Qty: 32 RF: 3 Primary Care Provider: Nima Whitman Disposition Disposition: Home, self care Discharge Date/Time: 09/15/20 01:45
== END 2020-09-15 01:45 | disposition home or self-care (01) ==
LOC: ED 06:46
PROVIDERS: Emergency Provider Emergency Medicine; PCP Family Medicine
DX: R59.0 Localized enlarged lymph nodes (principal); J02.9 Acute pharyngitis, unspecified; E89.0 Postprocedural hypothyroidism; F90.9 Attention-deficit hyperactivity disorder, unspecified type; F41.1 Generalized anxiety disorder; F17.200 Nicotine dependence, unspecified, uncomplicated; Z79.899 Other long term (current) drug therapy; Z85.828 Personal history of other malignant neoplasm of skin; Z85.820 Personal history of malignant melanoma of skin
CPT/HCPCS: 99283

== ENCOUNTER → 2020-10-01 13:47 | Outpatient (CLI) | payer BC, MEDICAID, SELFPAY ==
[2020-09-09 14:29] VITALS: BMI 39.2
[2020-10-01 15:13] LABS: Hematocrit 42.9 % (37-47); Hemoglobin 13.4 g/dL (12.0-15.0); Mean Corp Hgb Conc 31.2 g/dL (32-36); Mean Corpuscular Volume 86.5 fL (81-99); Mean Platelet Vol. 11.4 fl (6.2-12.0); Platelet Count 187 K/mm3 (150-450); RBC Distribution Width CV 13.2 % (11.6-14.6); RBC Distribution Width SD 41.1 fl (35.1-43.9); Red Blood Count 4.96 M/mm3 (4.2-5.4); White Blood Count 5.5 K/mm3 (4.4-11.0)
[2020-10-01 15:50] LABS: Thyroid Stim Hormone (TSH) 0.59 uIU/mL (0.358-3.74)
[2020-10-01 15:54] LABS: Vitamin B12 249 pg/mL (211-911)
[2020-10-01 17:15] LABS: ALB/GLOB Ratio 1.1 RATIO (0.9-2.4); AST(SGOT) 24 U/L (15-37); Alanine Aminotransfer ALT/SGPT 45 U/L (13-56); Albumin, Serum 3.8 g/dL (3.2-5.0); Alkaline Phosphatase 70 U/L (45-117); Anion Gap 6 (5-15); BUN 8 mg/dL (7-18); BUN/Creat Ratio 10.8 RATIO (10-20); Calcium,Total 8.9 mg/dL (8.5-10.1); Chloride 106 mmol/L (98-107); Creatinine, Serum 0.74 mg/dL (0.55-1.02); EST Glomerular Filtration Rate 96 mL/min (>60); Est Glom Filt Rate - Afr Amer 116 mL/min (>60); Globulin 3.5 g/dL (2.2-4.2); Glucose 132 mg/dL (74-106); Potassium 3.5 mmol/L (3.5-5.1); Protein, Total 7.3 g/dL (6.4-8.2); Sodium Level 138 mmol/L (136-145)
[2020-10-04 09:07] LABS: Free Kappa Light Chains 15.9 mg/L (3.3-19.4); Free Lambda Light Chains 11.6 mg/L (5.7-26.3)
== END ==
PROVIDERS: Psychiatry & Neurology Neurology; PCP Family Medicine; Visit Provider Otolaryngology
DX: G62.9 Polyneuropathy, unspecified (principal); E03.9 Hypothyroidism, unspecified
CPT/HCPCS: 36415; 80053; 82607; 82746; 83883; 84443; 85027

== ENCOUNTER 2020-10-14 18:07 | Emergency (ER) | payer BC, MEDICAID, SELFPAY ==
[2020-09-09 14:29] VITALS: BMI 39.2
[2020-10-14 18:08] VITALS: BP 153/90; PULSE 83; RESP 15; TEMP 36.7; O2SAT 100; BMI 38.7
--- NOTE | 2020-10-14 18:34 | EKG12_ITS ---
Test Reason : DYSRHYTHMIA Blood Pressure : / mmHG Vent. Rate : 076 BPM Atrial Rate : 076 BPM P-R Int : 168 ms QRS Dur : 090 ms QT Int : 378 ms P-R-T Axes : 020 051 027 degrees QTc Int : 425 ms Normal sinus rhythm Normal ECG Confirmed by ETHEL HARTMAN, PEARL ([id number]), research editor JULIO HDEZ ([id number]) on 10/15/2020 11:32:38 AM Referred By: SHREE Confirmed By:PEARL DAVENPORT MD
--- NOTE | 2020-10-14 18:35 | EDS_ITS ---
HPI History of Present Illness Chief Complaint: Anxiety Onset/Context/Timing Onset: Today Context: Sudden Onset Timing: Continuous Quality: Racing, sharp Location: Heart, chest Worsened by: Nothing Relieved by: Nothing Narrative Narrative: Patient presents with possible anxiety attack. Patient states that she noticed this come on today. Patient states she was at her grandmother's doctor appointment for her knee surgery when she started to feel anxious. Patient states she felt like her heart was racing. Patient states she felt shaky. Patient states she was having some pain in her substernal area. Patient states she felt like something needed to pop in her chest. Patient states the symptoms have been getting more frequent over the past 3 to 4 months. Patient states nothing makes them worse and nothing makes them better. Patient states she has been tried on BuSpar, Cymbalta, and some other medications with no improvement. Prior similar symptoms: Yes PFSH [facility] Medical History (Updated 10/14/20 @ 20:[address] Greg Melgar, DO) ADHD (attention deficit hyperactivity disorder), combined type Back problem Bone fracture NICOLÁS (generalized anxiety disorder) Almaz's thyroiditis History of blood transfusion History of gestational diabetes History of skin cancer Melanoma Migraine without aura and with status migrainosus, not intractable Numbness and tingling of both upper extremities Numbness of both lower extremities Post herpetic neuralgia Thyroid disease Home Medications prochlorperazine maleate 10 mg tablet 10 mg PO BID PRN 07/03/19 [History Last Taken Unknown] ketoprofen 50 mg capsule 75 mg PO Q6H PRN cap 08/26/19 [History Last Taken Unknown] dextroamphetamine-amphetamine ER 15 mg 24hr capsule,extend release 15 mg PO DAILY cap 08/19/20 [History Last Taken Unknown] arm brace #2 each 08/20/20 [Rx Last Taken Unknown] baclofen 10 mg tablet 10 mg PO TID PRN #90 tablet 08/20/20 [Rx Last Taken Unknown] hydroxyzine pamoate 25 mg PO TID PRN #20 cap 10/14/20 [Rx Last Taken Unknown] levothyroxine 137 mcg PO DAILY 10/14/20 [History Last Taken Unknown] Allergy/AdvReac Type Severity Reaction Status Date / Time promethazine [From Phenergan] Allergy Unknown Unknown Verified 10/14/20 18:11 latex Allergy Itching Verified 10/14/20 18:11 naproxen Allergy Unknown Verified 10/14/20 18:11 Penicillins [PCN] Allergy Rash Verified 10/14/20 18:11 escitalopram [From Lexapro] AdvReac Intermediate Lightheaded Verified 10/14/20 18:11 sertraline [From Zoloft] AdvReac Intermediate Dizzy & Verified 10/14/20 18:11 Headache dicyclomine [From Bentyl] AdvReac Unknown Unknown Verified 10/14/20 18:11 ondansetron HCl AdvReac Unknown Migraine Verified 10/14/20 18:11 [From Zofran (as hydrochloride)] ketorolac [From Toradol] AdvReac Other Verified 10/14/20 18:11 Family History Grandmother Diabetes Other Family history of skin cancer High cholesterol Hypertension Surgical History History of surgery on arm History of thyroidectomy Lower extremity surgery planned Social History Smoking Status: Current every day smoker tobacco type: cigarettes Tobacco: How many years used: 13 Electronic Cigarette Use: not used second hand exposure: No alcohol intake: current alcohol intake frequency: holidays/special occasions only substance use type: does not use caffeine: Yes what type of physical activity do you participate in: none seatbelt use: always do you feel safe at home: Yes additional social history: emmy [place]IL[place] ED Constitutional Constitutional ED: Denies chills or fever(s) Eyes Eyes: Denies blurry vision or change in vision ENT ENT ED: Denies rhinorrhea or sore throat Cardiovascular Cardiovascular: Reports chest pain and racing heartbeat Respiratory/Chest Respiratory/Chest: Reports dyspnea; Denies cough Gastrointestinal Gastrointestinal: Reports nausea; Denies vomiting Genitourinary Genitourinary ED: Denies dysuria or hematuria Musculoskeletal Musculoskeletal: Reports back pain; Denies neck pain Integumentary Denies abscess or rash Neurologic Neurologic: Reports paresthesias LUE; Denies headache(s) or weakness Psychiatric Psychiatric: Reports anxiety; Denies suicidal ideation or suicidal thoughts Allergic/Immunologic Allergic/Immunologic ED: Denies mouth swelling or urticaria EXAM Physical Exam Const Vital Signs: 10/14/20 18:08 10/14/20 19:52 Temperature 98.1 F Temperature Source Temporal Pulse Rate 83 83 Respiratory Rate 15 13 Blood Pressure 153/90 H 118/79 Blood Pressure Mean 111 92 Pulse Ox 100 97 Oxygen Delivery Method Room Air Room Air Positive well nourished, well developed and obese General Appearance ED: well developed Nutritional Appearance: obese Eyes PERRL and EOMs intact bilaterally Neck supple and no JVD Resp normal respiratory effort and clear to auscultation bilaterally Cardio regular rate and regular rhythm GI normal to inspection, nondistended, normoactive bowel sounds and non-tender Palpation: soft Neuro oriented x3, CN's II-XII intact bilaterally and no sensory deficits noted Sensorium / Orientation: alert Motor Exam: strength 5/5 throughout Psych mental status grossly normal Skin Skin Narrative: There is some mild erythematous urticarial rash over the anterior chest, worse on the right. There are no vesicles or pustules. There is no discharge or drainage. There are no petechia noted. There is no involvement of mucous membranes. MDM MDM MDM Narrative Medical decision making narrative: EKG was obtained. On my interpretation, it showed a normal sinus rhythm with a rate of 76. NC interval, QRS interval, and QTc intervals were all normal. [place] was normal. There are no acute ST or T wave changes. Portable 1 view chest x-ray was obtained. On my interpretation, lung still are clear. There is normal cardiac silhouette. Bony thorax is normal. There is no acute process noted. CBC and comprehensive metabolic profile were within normal limits. D-dimer was normal. Troponin was normal. Patient was given a dose of hydroxyzine here. Patient was feeling better on reevaluation. Patient was given a prescription for hydroxyzine. Patient was instructed to follow-up with her primary care physician in 3 to 5 days. Patient understood and was agreeable with the plan. All questions were answered. Lab Data Attestation: I reviewed the patient's lab results. Labs: Laboratory Results - last 24 hr 10/14/20 10/14/20 10/14/20 19:12 19:12 19:12 WBC 5.6 RBC 5.06 Hgb 14.1 Hct 43.7 MCV 86.4 MCH 27.9 MCHC 32.3 RDW Std Deviation 40.9 RDW Coeff of Mikel 13.2 Plt Count 193 MPV 10.9 Immature Gran % (Auto) 0.400 Neut % (Auto) 57.1 Lymph % (Auto) 29.3 Sherman % (Auto) 9.5 Eos % (Auto) 3.2 Baso % (Auto) 0.5 Absolute Neuts (auto) 3.2 Absolute Lymphs (auto) 1.64 Nucleated RBC % 0 D-Dimer Quant (PE/DVT) 0.40 Sodium 138 Potassium 3.8 Chloride 106 Carbon Dioxide 27.0 Anion Gap 5 BUN 8 Creatinine 0.84 Estim Creat Clear Calc 89.18 Est GFR (MDRD) Af Amer 100 Est GFR (MDRD) Non-Af 83 BUN/Creatinine Ratio 9.5 L Glucose 100 Calcium 8.8 Total Bilirubin 0.30 AST 17 ALT 30 Alkaline Phosphatase 69 Troponin I < 0.015 Total Protein 7.8 Albumin 4.0 Globulin 3.8 Albumin/Globulin Ratio 1.1 Radiography Chest X-Ray - ED: 1 View, Read by ED Physician and Normal EKG Initial EKG: Attestation: I personally reviewed and interpreted this EKG as follows: Interpretation: Sinus Rhythm (76) and No Acute Injury Pattern Prior EKG tracings: available for review Prior: Unchanged (09/08/2020) Discharge Plan Triage Chief Complaint: Anxiety Other Complaint: Asthma ED Provider: Greg Melgar Dx/Rx/DC Orders Clinical Impression: Anxiety Instructions: ED Anxiety Reaction Prescriptions: New hydroxyzine pamoate 25 mg capsule 25 mg PO TID PRN (Reason: anxiety) Qty: 20 RF: 0 No Action prochlorperazine maleate [Compazine] 10 mg tablet 10 mg PO BID PRN (Reason: Migraine Symptoms) RF: 0 ketoprofen 50 mg capsule 75 mg PO Q6H PRN (Reason: Migraine Symptoms) RF: 0 dextroamphetamine-amphetamine 15 mg capsule,extended release 24hr 15 mg PO DAILY RF: 0 (DME) Wrist Brace Misc See Rx Instructions .ROUTE .MEDSUPPLY Qty: 2 RF: 0 baclofen 10 mg tablet 10 mg PO TID PRN (Reason: muscle pain/spasm) Qty: 90 RF: 1 levothyroxine 112 mcg tablet 137 mcg PO DAILY RF: 0 Primary Care Provider: Nima Whitman Referrals: Nima Whitman MD [Primary Care Provider] - 3-5 Days Disposition Disposition: Home, self care
[2020-10-14] MEDS: hydrOXYzine PAM 25 MG Capsule PO (18:46)
--- NOTE | 2020-10-14 18:55 | RAD_ITS ---
STUDY: X-RAY CHEST REASON FOR EXAM: Female, 35 years old. Dyspnea TECHNIQUE: Single AP portable view of the chest. COMPARISON: September 08, 2020 FINDINGS: There is stable elevation of the right hemidiaphragm with scarring or atelectasis. No focal infiltrate. There is no demonstrated pleural abnormality. Normal size heart. Normal mediastinum and tho. Normal visualized pulmonary arteries. Normal visualized aortic arch and descending thoracic aorta. Normal visualized thoracic spine. Normal visualized ribs, clavicles, and shoulders. There is no demonstrated abnormality of the visualized soft tissue structures of the upper abdomen. RAD/Chest 1 View (Portable) IMPRESSION: No acute cardiopulmonary disease. Stable appearance. Electronically Signed: Ashutosh Smith MD at 21:20 EDT , Service support ,
[2020-10-14 19:19] LABS: Absolute Lymphocyte Count 1.64 X10^3/uL (0.83-4.51); Absolute Neutrophil Count 3.2 X10^3/uL (2.0-7.7); Basophil# 0.03 X10^3/uL; Basophil% 0.5 % (0-1); Eosinophil# 0.18 X10^3/uL; Eosinophils% 3.2 % (0-5); Hematocrit 43.7 % (37-47); Hemoglobin 14.1 g/dL (12.0-15.0); Lymphocyte # 1.64 X10^3/ul (0.83-4.51); Lymphocyte % 29.3 % (19-41); Mean Corp Hgb Conc 32.3 g/dL (32-36); Mean Corpuscular Hgb 27.9 pg (27.0-32.0); Mean Corpuscular Volume 86.4 fL (81-99); Mean Platelet Vol. 10.9 fl (6.2-12.0); Monocyte# 0.53 X10^3/uL; Monocyte% 9.5 % (0-10); NRBC Flagged by Analyzer 0 % (0-5); Neutrophil # 3.19 X10^3/uL (2.7-7.7); Neutrophil % 57.1 % (47-70); Platelet Count 193 K/mm3 (150-450); RBC Distribution Width CV 13.2 % (11.6-14.6); RBC Distribution Width SD 40.9 fl (35.1-43.9); Red Blood Count 5.06 M/mm3 (4.2-5.4); White Blood Count 5.6 K/mm3 (4.4-11.0)
[2020-10-14 19:38] LABS: ALB/GLOB Ratio 1.1 RATIO (0.9-2.4); AST(SGOT) 17 U/L (15-37); Alanine Aminotransfer ALT/SGPT 30 U/L (13-56); Alkaline Phosphatase 69 U/L (45-117); Anion Gap 5 (5-15); BUN 8 mg/dL (7-18); BUN/Creat Ratio 9.5 RATIO (10-20); Calcium,Total 8.8 mg/dL (8.5-10.1); Chloride 106 mmol/L (98-107); Creatinine, Serum 0.84 mg/dL (0.55-1.02); EST Glomerular Filtration Rate 83 mL/min (>60); Est Glom Filt Rate - Afr Amer 100 mL/min (>60); Estimated Creatinine Clearance 89.18 ml/min; Globulin 3.8 g/dL (2.2-4.2); Glucose 100 mg/dL (74-106); Potassium 3.8 mmol/L (3.5-5.1); Protein, Total 7.8 g/dL (6.4-8.2); Sodium Level 138 mmol/L (136-145)
[2020-10-14 19:52] VITALS: BP 118/79; PULSE 83; RESP 13; O2SAT 97
[2020-10-14 20:12] VITALS: BP 128/78; PULSE 84; RESP 16; O2SAT 95
== END 2020-10-14 20:18 | disposition home or self-care (01) ==
PROVIDERS: Emergency Provider Emergency Medicine; PCP Family Medicine
DX: F41.1 Generalized anxiety disorder (principal); E89.0 Postprocedural hypothyroidism; G43.009 Migraine without aura, not intractable, without status migrainosus; J45.909 Unspecified asthma, uncomplicated; E66.9 Obesity, unspecified; F17.210 Nicotine dependence, cigarettes, uncomplicated; Z79.890 Hormone replacement therapy; Z79.899 Other long term (current) drug therapy
CPT/HCPCS: 71045; 80053; 84484; 85025; 85379; 93005; 99285; A4216

== ENCOUNTER 2020-10-24 20:59 | Emergency (ER) | payer BC, MEDICAID, SELFPAY ==
[2020-10-24 21:00] VITALS: BP 120/90; PULSE 103; RESP 18; TEMP 36.1; O2SAT 97; BMI 39.6
[2020-10-24] MEDS: Fluorescein 1 MG STRIP 1 STRIP RIGHT EYE (21:15)
[2020-10-24] MEDS: Tetracaine 0.5% Ophthalmic Bottle 1 DRP RIGHT EYE (21:15)
--- NOTE | 2020-10-24 21:36 | EX.ED.VIS.EY ---
HPI History of Present Illness Chief Complaint: Eye Problem Informant: patient Onset/Context/Timing Location: Right Eye Onset: Today and Hours Context: Sudden Onset Timing: Continuous Current Severity: Mild Maximum Severity: Mild Associated Symptoms Associated Symptoms - Eyes: Foreign body sensation and Pain Visual Changes: right: Blurred vision History of injury: Uncertain, Chemical exposure, Direct trauma, Foreign body, Grinding injury, Tanning hankins, UV exposure and Welding injury Visual correction: Glasses Narrative Narrative: 35-year-old female history of hypothyroidism borderline diabetes and migraine headaches. Today was at a [place] felt like something went into her right eye. Since that time she has had some discomfort and blurry vision. Denies any other known trauma. She is supposed to wear glasses but does not have them currently. She does not wear contacts. She has never had eye surgery. Prior similar symptoms: No Recent Illness/Hospitalization: No [facility] Medical History (Updated 10/24/20 @ 21:[address] Ry Enamorado MD) ADHD (attention deficit hyperactivity disorder), combined type Back problem Bone fracture NICOLÁS (generalized anxiety disorder) Almaz's thyroiditis History of blood transfusion History of gestational diabetes History of skin cancer Melanoma Migraine without aura and with status migrainosus, not intractable Numbness and tingling of both upper extremities Numbness of both lower extremities Post herpetic neuralgia Thyroid disease Home Medications prochlorperazine maleate 10 mg tablet 10 mg PO BID PRN 07/03/19 [History Last Taken Unknown] ketoprofen 50 mg capsule 75 mg PO Q6H PRN cap 08/26/19 [History Last Taken Unknown] dextroamphetamine-amphetamine ER 15 mg 24hr capsule,extend release 15 mg PO DAILY cap 08/19/20 [History Last Taken Unknown] arm brace #2 each 08/20/20 [Rx Last Taken Unknown] baclofen 10 mg tablet 10 mg PO TID PRN #90 tablet 08/20/20 [Rx Last Taken Unknown] hydroxyzine pamoate 25 mg PO TID PRN #20 cap 10/14/20 [Rx Last Taken Unknown] levothyroxine 137 mcg PO DAILY 10/14/20 [History Last Taken Unknown] nystatin 100,000 unit/gram topical powder 1 applic TOPICAL BID #15 g 10/23/20 [Rx Last Taken Unknown] Allergy/AdvReac Type Severity Reaction Status Date / Time promethazine [From Phenergan] Allergy Unknown Unknown Verified 10/24/20 21:02 latex Allergy Itching Verified 10/24/20 21:02 naproxen Allergy Unknown Verified 10/24/20 21:02 Penicillins [PCN] Allergy Rash Verified 10/24/20 21:02 escitalopram [From Lexapro] AdvReac Intermediate Lightheaded Verified 10/24/20 21:02 sertraline [From Zoloft] AdvReac Intermediate Dizzy & Verified 10/24/20 21:02 Headache dicyclomine [From Bentyl] AdvReac Unknown Unknown Verified 10/24/20 21:02 ondansetron HCl AdvReac Unknown Migraine Verified 10/24/20 21:02 [From Zofran (as hydrochloride)] ketorolac [From Toradol] AdvReac Other Verified 10/24/20 21:02 Family History Grandmother Diabetes Other Family history of skin cancer High cholesterol Hypertension Surgical History History of surgery on arm History of thyroidectomy Lower extremity surgery planned Social History Smoking Status: Current every day smoker tobacco type: cigarettes Tobacco: How many years used: 13 Electronic Cigarette Use: not used second hand exposure: No alcohol intake: current alcohol intake frequency: holidays/special occasions only substance use type: does not use caffeine: Yes what type of physical activity do you participate in: none seatbelt use: always do you feel safe at home: Yes additional social history: emmy [place] ED ROS Narrative Denies any recent illness. Review of Systems ROS Unobtainable: Denies due to encephalopathy Constitutional Constitutional ED: Denies fever(s) Eyes Eyes: Reports blurry vision and change in vision ENT ENT ED: Denies ear pain or sore throat Cardiovascular Cardiovascular: Denies chest pain Respiratory/Chest Respiratory/Chest: Denies dyspnea Gastrointestinal Gastrointestinal: Denies abdominal pain, nausea or vomiting Genitourinary Genitourinary ED: Denies dysuria Musculoskeletal Musculoskeletal: Denies myalgias Integumentary Denies rash Neurologic Neurologic: Denies headache(s) Psychiatric Psychiatric: Denies depression Endocrine Endocrinology: Denies polyuria Hematologic/Lymphatic Hematologic/Lymphatic: Denies easy bruising Allergic/Immunologic Allergic/Immunologic ED: Denies urticaria EXAM Physical Exam Narrative Exam Narrative: Young female no acute distress. Vital signs stable afebrile. HEENT exam pupils round reactive light extra motions are intact. Both the upper and lower lids are unremarkable. I did aidan the upper and lower lid on the right eye and there was no foreign body noted. No trauma. No redness or swelling. No stye. The eyes not significantly injected. Tetracaine was instilled in the right eye which did give her relief. Fluorescein was then applied and a slit-lamp exam there is a very minor corneal abrasion on the medial aspect of the pupil at around 3:00. There is no foreign body. There is no ulceration. And there was no rupture of the globe. Funduscopic exam was unremarkable with limited due to the pupil not being dilated. Otherwise exam unremarkable. Const Vital Signs: 10/24/20 21:00 Temperature 97 F L Temperature Source Temporal Pulse Rate 103 H Respiratory Rate 18 Blood Pressure 120/90 H Blood Pressure Mean 100 Pulse Ox 97 Oxygen Delivery Method Room Air HEENT Negative for atraumatic, trauma or tenderness Nose: external nose normal and nares normal Eyes General Eye ED: Yes normal appearance of both eyes and normal light reflex; Negative for exophthalmos, proptosis, pale conjunctiva or scleral icterus Visual Field: No peripheral vision loss Alignment: alignment normal Periorbital: periorbital findings normal Eyelid: eyelids normal Conjunctiva: conjunctiva normal Sclera: sclera normal Cornea: fluorescein used Pupil: PERRL and accommodation reflex normal EOM: EOM abnormal Slit Lamp: slit lamp exam performed with fluorescein Neck no lymphadenopathy, supple and no JVD Resp normal respiratory effort and clear to auscultation bilaterally Cardio regular rate, regular rhythm and no murmurs GI non-tender and non-distended Auscultation: normoactive bowel sounds Palpation: soft Extremity normal to inspection General Extremety ED: Negative for edema General Extremity: Negative for edema Neuro oriented x3 and moves all extremities Sensorium / Orientation: alert, oriented to person, oriented to place and oriented to time Psych Attitude: No agitated Mood & Affect: Negative for depressed or tearful Skin Lesions: no lesions Rashes: no rashes MDM MDM MDM Narrative Medical decision making narrative: History and exam are consistent with a minor right corneal abrasion. No foreign body noted. Improved with tetracaine. Visual acuity is being obtained. However the patient does not have her glasses with her eye on him think she has glasses. She will use bacitracin ophthalmic ointment 3 times a day. Tetracaine for pain for the next 24 hours. 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 Discharge Plan Triage Chief Complaint: Eye Problem ED Provider: Ry Enamorado Dx/Rx/DC Orders Clinical Impression: Abrasion, corneal Instructions: ED Corneal Abrasion Prescriptions: No Action prochlorperazine maleate [Compazine] 10 mg tablet 10 mg PO BID PRN (Reason: Migraine Symptoms) RF: 0 ketoprofen 50 mg capsule 75 mg PO Q6H PRN (Reason: Migraine Symptoms) RF: 0 dextroamphetamine-amphetamine 15 mg capsule,extended release 24hr 15 mg PO DAILY RF: 0 (DME) Wrist Brace Misc See Rx Instructions .ROUTE .MEDSUPPLY Qty: 2 RF: 0 baclofen 10 mg tablet 10 mg PO TID PRN (Reason: muscle pain/spasm) Qty: 90 RF: 1 levothyroxine 112 mcg tablet 137 mcg PO DAILY RF: 0 hydroxyzine pamoate 25 mg capsule 25 mg PO TID PRN (Reason: anxiety) Qty: 20 RF: 0 nystatin 100,000 unit/gram powder 1 applic topical BID Qty: 15 RF: 0 Primary Care Provider: Nima Whitman Referrals: Nima Whitman MD [Primary Care Provider] - Nima Sellers MD [STAFF PHYSICIAN] - 1-2 Days if not improving Activity Restrictions/Additional Instructions: Tetracaine 2 drops your right eye to help with pain. May use for the next 24 hours then do not continue using because it can retard healing. Eye ointment 3 times a day just put a small amount on your right lower lid. Sunglasses to prevent glare. You have a small scratch in your right eye that should improve over the next 36 to 72 hours. Follow-up with [facility] or your fondant machine operator if not improving. Disposition Disposition: Home, self care
== END 2020-10-24 21:50 | disposition home or self-care (01) ==
PROVIDERS: Emergency Provider Emergency Medicine; PCP Family Medicine
DX: S05.01XA Injury of conjunctiva and corneal abrasion without foreign body, right eye, initial encounter (principal); X58.XXXA Exposure to other specified factors, initial encounter; Y93.9 Activity, unspecified; Y92.832 Beach as the place of occurrence of the external cause; Y99.9 Unspecified external cause status; E89.0 Postprocedural hypothyroidism; R73.03 Prediabetes; G43.009 Migraine without aura, not intractable, without status migrainosus; F90.2 Attention-deficit hyperactivity disorder, combined type; F41.1 Generalized anxiety disorder; F17.210 Nicotine dependence, cigarettes, uncomplicated; Z79.899 Other long term (current) drug therapy; Z85.820 Personal history of malignant melanoma of skin
CPT/HCPCS: 99282

== ENCOUNTER 2020-11-02 01:03 | Emergency (ER) | payer BC, MEDICAID, SELFPAY ==
[2020-11-02 01:04] VITALS: BP 123/80; PULSE 101; RESP 18; TEMP 36.3; O2SAT 98; BMI 40.6
--- NOTE | 2020-11-02 01:19 | CT_ITS ---
STUDY: CTA CHEST REASON FOR EXAM: Female, 35 years old patient with hemoptysis RADIATION DOSAGE (If Supplied By Facility): CTDIvol = ( 12.67 ) mGy, DLP = ( 527.09 ) mGycm TECHNIQUE: The examination was performed with the intravenous administration of 100 mL of Isovue-370. Post-processing of the angiographic images was performed, with multiplanar reformation and 3D reconstruction. Individualized dose optimization techniques were used for this CT. COMPARISON: None. FINDINGS: Normal enhancement of the main pulmonary artery and right and left pulmonary arteries. Normal enhancement of the bilateral peripheral pulmonary arteries. There is no demonstrated pulmonary embolism. Normal thoracic aorta and visualized great vessels. There is no demonstrated aortic dissection. Normal heart and pericardium. Normal mediastinum. Normal hilar regions. Normal visualized trachea and bronchi. The lungs are well expanded. There are subpleural nodules in both lower lobes. The right-sided nodule measures approximately 1.5 cm. Left-sided subpleural nodule measures 1.2 cm. There is also a subpleural opacity within the lateral right portion of the lower lobe as well. Normal pleura. Normal chest wall structures. Normal osseous structures. Normal visualized upper abdomen. CT/CTA Chest W/WO Contrast IMPRESSION: 1. No CTA demonstrated pulmonary embolism or arterial dissection. 2. Bilateral lower lobe subpleural nodularity. This may be secondary to infection. Neoplastic process is not excluded. Electronically Signed: Darline Maurer MD at 3:21 EDT , Service support ,
[2020-11-02 01:39] LABS: Absolute Lymphocyte Count 1.93 X10^3/uL (0.83-4.51); Absolute Neutrophil Count 2.8 X10^3/uL (2.0-7.7); Basophil# 0.05 X10^3/uL; Basophil% 0.9 % (0-1); Eosinophil# 0.28 X10^3/uL; Hematocrit 42.1 % (37-47); Hemoglobin 13.4 g/dL (12.0-15.0); Lymphocyte # 1.93 X10^3/ul (0.83-4.51); Lymphocyte % 34.6 % (19-41); Mean Corp Hgb Conc 31.8 g/dL (32-36); Mean Corpuscular Hgb 27.4 pg (27.0-32.0); Mean Corpuscular Volume 86.1 fL (81-99); Mean Platelet Vol. 10.1 fl (6.2-12.0); Monocyte# 0.54 X10^3/uL; Monocyte% 9.7 % (0-10); NRBC Flagged by Analyzer 0 % (0-5); Neutrophil # 2.75 X10^3/uL (2.7-7.7); Neutrophil % 49.4 % (47-70); Platelet Count 189 K/mm3 (150-450); RBC Distribution Width SD 40.6 fl (35.1-43.9); Red Blood Count 4.89 M/mm3 (4.2-5.4); White Blood Count 5.6 K/mm3 (4.4-11.0)
[2020-11-02 01:54] LABS: Anion Gap 5 (5-15); BUN 11 mg/dL (7-18); BUN/Creat Ratio 12.1 RATIO (10-20); Calcium,Total 8.5 mg/dL (8.5-10.1); Chloride 106 mmol/L (98-107); Creatinine, Serum 0.91 mg/dL (0.55-1.02); EST Glomerular Filtration Rate 75 mL/min (>60); Est Glom Filt Rate - Afr Amer 91 mL/min (>60); Estimated Creatinine Clearance 82.32 ml/min; Glucose 124 mg/dL (74-106); Potassium 3.8 mmol/L (3.5-5.1); Sodium Level 140 mmol/L (136-145)
--- NOTE | 2020-11-02 03:32 | EDS_ITS ---
HPI History of Present Illness Chief Complaint: Cough Informant: patient Onset/Context/Timing Onset: Yesterday Context: Gradual Onset Current Severity: Mild Maximum Severity: Moderate Narrative Narrative: Patient present secondary to hemoptysis. Patient states that she laid down less than to take a nap and after getting up was coughing. When she looked at what she was spitting up it was bright red blood. She does state now that any sputum is very light pink-tinged. She denies chest pain or shortness of breath. Patient is a smoker. No recent URI symptoms. [facility] Medical History ADHD (attention deficit hyperactivity disorder), combined type Back problem Bone fracture NICOLÁS (generalized anxiety disorder) Almaz's thyroiditis History of blood transfusion History of gestational diabetes History of skin cancer Melanoma Migraine without aura and with status migrainosus, not intractable Numbness and tingling of both upper extremities Numbness of both lower extremities Post herpetic neuralgia Thyroid disease Home Medications prochlorperazine maleate 10 mg tablet 10 mg PO BID PRN 07/03/19 [History Last Taken Unknown] ketoprofen 50 mg capsule 75 mg PO Q6H PRN cap 08/26/19 [History Last Taken Unknown] dextroamphetamine-amphetamine ER 15 mg 24hr capsule,extend release 15 mg PO DAILY cap 08/19/20 [History Last Taken Unknown] arm brace #2 each 08/20/20 [Rx Last Taken Unknown] baclofen 10 mg tablet 10 mg PO TID PRN #90 tablet 08/20/20 [Rx Last Taken Unknown] hydroxyzine pamoate 25 mg PO TID PRN #20 cap 10/14/20 [Rx Last Taken Unknown] levothyroxine 137 mcg PO DAILY 10/14/20 [History Last Taken Unknown] nystatin 100,000 unit/gram topical powder 1 applic TOPICAL BID #15 g 10/23/20 [Rx Last Taken Unknown] Allergy/AdvReac Type Severity Reaction Status Date / Time promethazine [From Phenergan] Allergy Unknown Unknown Verified 11/02/20 01:09 latex Allergy Itching Verified 11/02/20 01:09 naproxen Allergy Unknown Verified 11/02/20 01:09 Penicillins [PCN] Allergy Rash Verified 11/02/20 01:09 escitalopram [From Lexapro] AdvReac Intermediate Lightheaded Verified 11/02/20 01:09 sertraline [From Zoloft] AdvReac Intermediate Dizzy & Verified 11/02/20 01:09 Headache dicyclomine [From Bentyl] AdvReac Unknown Unknown Verified 11/02/20 01:09 ondansetron HCl AdvReac Unknown Migraine Verified 11/02/20 01:09 [From Zofran (as hydrochloride)] ketorolac [From Toradol] AdvReac Other Verified 11/02/20 01:09 Family History Grandmother Diabetes Other Family history of skin cancer High cholesterol Hypertension Surgical History History of surgery on arm History of thyroidectomy Lower extremity surgery planned Social History Smoking Status: Current every day smoker tobacco type: cigarettes Tobacco: How many years used: 13 Electronic Cigarette Use: not used second hand exposure: No alcohol intake: current alcohol intake frequency: holidays/special occasions only substance use type: does not use caffeine: Yes what type of physical activity do you participate in: none seatbelt use: always do you feel safe at home: Yes additional social history: emmy H[place]IL[place] ED Constitutional Constitutional ED: Denies chills or fever(s) Eyes Eyes: Denies change in vision ENT ENT ED: Denies sore throat Cardiovascular Cardiovascular: Denies chest pain Respiratory/Chest Respiratory/Chest: Reports other Details: Hemoptysis ; Denies cough or dyspnea Gastrointestinal Gastrointestinal: Denies abdominal pain, diarrhea, nausea or vomiting Genitourinary Genitourinary ED: Denies dysuria Musculoskeletal Musculoskeletal: Denies back pain Integumentary Denies rash Neurologic Neurologic: Denies headache(s) or weakness Psychiatric Psychiatric: Denies anxiety or depression Endocrine Endocrinology: Denies polydipsia or polyuria Allergic/Immunologic Allergic/Immunologic ED: Denies urticaria EXAM Physical Exam Const Vital Signs: 11/02/20 01:04 11/02/20 01:09 11/02/20 03:39 Temperature 97.3 F L Temperature Source Temporal Pulse Rate 101 H 85 Respiratory Rate 18 15 Respiratory Effort Normal Respiratory Depth Normal Blood Pressure 123/80 H 118/76 Blood Pressure Mean 94 Pulse Ox 98 98 Positive well nourished and well developed General Appearance ED: well developed HEENT Reports normocephalic and head/scalp atraumatic Eyes PERRL and EOMs intact bilaterally Neck supple Chest Wall inspection of chest normal and palpation of chest normal Resp normal respiratory effort and clear to auscultation bilaterally Cardio regular rate and regular rhythm GI normal to inspection, nondistended, normoactive bowel sounds Palpation: soft Extremity normal to inspection Neuro oriented x3 and no sensory deficits noted Sensorium / Orientation: alert Motor Exam: strength 5/5 throughout Psych mental status grossly normal Skin no rashes or lesions noted MDM MDM MDM Narrative Medical decision making narrative: Lab work and CTA of the chest are obtained. Lab Data Labs: Laboratory Results - last 24 hr 11/02/20 11/02/20 01:35 01:35 WBC 5.6 RBC 4.89 Hgb 13.4 Hct 42.1 MCV 86.1 MCH 27.4 MCHC 31.8 L RDW Std Deviation 40.6 RDW Coeff of Mikel 13.0 Plt Count 189 MPV 10.1 Immature Gran % (Auto) 0.400 Neut % (Auto) 49.4 Lymph % (Auto) 34.6 [place] % (Auto) 9.7 Eos % (Auto) 5.0 Baso % (Auto) 0.9 Absolute Neuts (auto) 2.8 Absolute Lymphs (auto) 1.93 Nucleated RBC % 0 Sodium 140 Potassium 3.8 Chloride 106 Carbon Dioxide 29.0 Anion Gap 5 BUN 11 Creatinine 0.91 Estim Creat Clear Calc 82.32 Est GFR (MDRD) Af Amer 91 Est GFR (MDRD) Non-Af 75 BUN/Creatinine Ratio 12.1 Glucose 124 H Calcium 8.5 Radiography Diagnostic Testing: Radiology Impression Chest CTA 11/02/20 01:19 IMPRESSION: 1. No CTA demonstrated pulmonary embolism or arterial dissection. 2. Bilateral lower lobe subpleural nodularity. This may be secondary to infection. Neoplastic process is not excluded. Electronically Signed: Darline Maurer MD at 3:21 EDT , Service support , Treatment and Re-Evaluation Comments:: Test results are discussed with the patient at bedside. She does have evidence of nodules in the bilateral lower lobes. She does not have acute infectious symptoms. She will be referred to pulmonary for follow-up. She was given return instructions. Discharge Plan Triage Chief Complaint: Cough ED Provider: Dimple Luis Dx/Rx/DC Orders Clinical Impression: Hemoptysis Instructions: ED Hemoptysis Prescriptions: No Action prochlorperazine maleate [Compazine] 10 mg tablet 10 mg PO BID PRN (Reason: Migraine Symptoms) RF: 0 ketoprofen 50 mg capsule 75 mg PO Q6H PRN (Reason: Migraine Symptoms) RF: 0 dextroamphetamine-amphetamine 15 mg capsule,extended release 24hr 15 mg PO DAILY RF: 0 (DME) Wrist Brace Misc See Rx Instructions .ROUTE .MEDSUPPLY Qty: 2 RF: 0 baclofen 10 mg tablet 10 mg PO TID PRN (Reason: muscle pain/spasm) Qty: 90 RF: 1 levothyroxine 112 mcg tablet 137 mcg PO DAILY RF: 0 hydroxyzine pamoate 25 mg capsule 25 mg PO TID PRN (Reason: anxiety) Qty: 20 RF: 0 nystatin 100,000 unit/gram powder 1 applic topical BID Qty: 15 RF: 0 Primary Care Provider: Nima Whitman Referrals: Ryne Small MD [STAFF PHYSICIAN] - As soon as possible Nima Whitman MD [Primary Care Provider] - Disposition Disposition: Home, self care Discharge Date/Time: 11/02/20 03:43
[2020-11-02 03:39] VITALS: BP 118/76; PULSE 85; RESP 15; O2SAT 98
== END 2020-11-02 03:43 | disposition home or self-care (01) ==
PROVIDERS: Emergency Provider Emergency Medicine; PCP Family Medicine
DX: R04.2 Hemoptysis (principal); E89.0 Postprocedural hypothyroidism; F90.9 Attention-deficit hyperactivity disorder, unspecified type; G43.009 Migraine without aura, not intractable, without status migrainosus; F41.1 Generalized anxiety disorder; F17.210 Nicotine dependence, cigarettes, uncomplicated; Z79.899 Other long term (current) drug therapy; Z85.828 Personal history of other malignant neoplasm of skin
CPT/HCPCS: 71275; 80048; 85025; 99283; Q9967; A4216

== ENCOUNTER → 2020-11-09 10:37 | Outpatient (CLI) | payer BC, MEDICAID, SELFPAY ==
[2020-11-03 08:26] VITALS: BMI 43.6
[2020-11-09 11:15] LABS: AST(SGOT) 28 U/L (15-37); Alanine Aminotransfer ALT/SGPT 48 U/L (13-56); Albumin, Serum 3.6 g/dL (3.2-5.0); Alkaline Phosphatase 64 U/L (45-117); Bilirubin, Direct 0.15 mg/dL (0.00-0.30); Globulin 3.2 g/dL (2.2-4.2); Protein, Total 6.8 g/dL (6.4-8.2)
[2020-11-09 11:16] LABS: Prothrombin Time (Protime)PT. 12.5 SECONDS (11.7-14.9)
[2020-11-10 14:36] LABS: ANTINUCLEAR ANTIBODIES DIRECT Negative (Negative)
[2020-11-10 20:08] LABS: Cytoplasmic Ab (C-ANCA) <1:20 titer (Neg:<1:20)
[2020-11-11 12:02] LABS: Perinuclear Ab (P-ANCA) <1:20 titer (Neg:<1:20)
== END ==
PROVIDERS: PCP Family Medicine; Referring Provider Internal Medicine Critical Care Medicine; Visit Provider Internal Medicine Critical Care Medicine
DX: R04.2 Hemoptysis (principal)
CPT/HCPCS: 36415; 80076; 85610; 86038; 86225; 86235; 86256

== ENCOUNTER → 2020-12-17 08:09 | Outpatient (CLI) | payer BC, MEDICAID, SELFPAY ==
[2020-12-16 07:57] VITALS: BMI 43.5
== END ==
PROVIDERS: PCP Family Medicine; Referring Provider Nurse Practitioner Acute Care; Visit Provider Nurse Practitioner Acute Care
DX: R04.2 Hemoptysis (principal)
CPT/HCPCS: 87070; 87205

== ENCOUNTER → 2020-12-23 13:37 | Outpatient (CLI) | payer BC, MEDICAID, SELFPAY ==
[2020-12-23 13:23] VITALS: BMI 43.5
[2020-12-23 14:50] LABS: HIV - WCH Non-Reactive (Nonreactive); Hepatitis C Antibody Non-Reactive (Nonreactive); Syphilis Antibodies Non-reactive
[2020-12-26 03:07] LABS: Chlamydia By Nucleic Acid AMP Negative (Negative)
[2020-12-26 08:33] LABS: Gonococcus By Nucleic Acid AMP Negative (Negative)
== END ==
PROVIDERS: PCP Family Medicine; Referring Provider Nurse Practitioner Women's Health; Visit Provider Nurse Practitioner Women's Health
DX: Z20.2 Contact with and (suspected) exposure to infections with a predominantly sexual mode of transmission (principal); Z11.3 Encounter for screening for infections with a predominantly sexual mode of transmission
CPT/HCPCS: 36415; 86695; 86696; 86703; 86780; 86803; 87491; 87591

== ENCOUNTER 2020-12-28 01:07 | Emergency (ER) | payer BC, MEDICAID, SELFPAY ==
[2020-12-23 13:23] VITALS: BMI 43.5
[2020-12-28 01:11] VITALS: BP 121/72; PULSE 94; RESP 22; TEMP 37.1; O2SAT 98; BMI 40.6
--- NOTE | 2020-12-28 01:31 | EKG12_ITS ---
Test Reason : CP Blood Pressure : / mmHG Vent. Rate : 085 BPM Atrial Rate : 085 BPM P-R Int : 162 ms QRS Dur : 086 ms QT Int : 372 ms P-R-T Axes : 041 050 045 degrees QTc Int : 442 ms Normal sinus rhythm Normal ECG Confirmed by ETHEL HARTMAN, PEARL ([id number]), newspaper copy editor JULIO HDEZ ([id number]) on 12/30/2020 9:52:22 AM Referred By: BERRY Confirmed By:PEARL DAVENPORT MD
--- NOTE | 2020-12-28 01:31 | RAD_ITS ---
STUDY: X-RAY CHEST REASON FOR EXAM: Female, 35 years old. chest pain TECHNIQUE: 1 view COMPARISON: 10/14/2020 FINDINGS: Cardiomediastinal silhouette is unremarkable. Costophrenic angles are sharp. Lungs are clear. The trachea is midline. There is no pneumothorax. The bones are grossly intact. RAD/Chest 1 View (Portable) IMPRESSION: No acute cardiopulmonary process. Electronically Signed: Cain Vazquez MD at 3:00 EDT Tel , Service support ,
--- NOTE | 2020-12-28 01:33 | ED.VIS.CHEST ---
HPI History of Present Illness Chief Complaint: Chest Pain Informant: patient Narrative Narrative: Patient presents with episodes of chest pain. She states she gets these at least every month. She thinks are due to anxiety. She will get sharp pains in the left upper chest. Sometimes she gets a tingling sensation around her shoulder. Not really short of breath. No nausea vomiting or diaphoresis. No recent travel surgery immobilization personal or family history of DVT or PE. No leg swelling or pain. She feels good right now. Occasionally she will feel her heart race. [facility] Medical History (Updated 12/28/20 @ 02:[address] Shaji Padilla MD) ADHD (attention deficit hyperactivity disorder), combined type Back problem Bone fracture NICOLÁS (generalized anxiety disorder) Almaz's thyroiditis History of blood transfusion History of gestational diabetes History of skin cancer Melanoma Migraine without aura and with status migrainosus, not intractable Numbness and tingling of both upper extremities Numbness of both lower extremities Post herpetic neuralgia Thyroid disease Home Medications prochlorperazine maleate 10 mg tablet 10 mg PO BID PRN 07/03/19 [History Last Taken Unknown] ketoprofen 50 mg capsule 75 mg PO Q6H PRN cap 08/26/19 [History Last Taken Unknown] levothyroxine 137 mcg PO DAILY 10/14/20 [History Last Taken Unknown] hydroxyzine pamoate [Vistaril] 25 mg PO TID PRN #14 cap 12/28/20 [Rx Last Taken Unknown] Allergy/AdvReac Type Severity Reaction Status Date / Time promethazine [From Phenergan] Allergy Unknown Unknown Verified 12/23/20 13:16 latex Allergy Itching Verified 12/23/20 13:16 naproxen Allergy Unknown Verified 12/23/20 13:16 Penicillins [PCN] Allergy Rash Verified 12/23/20 13:16 escitalopram [From Lexapro] AdvReac Intermediate Lightheaded Verified 12/23/20 13:16 sertraline [From Zoloft] AdvReac Intermediate Dizzy & Verified 12/23/20 13:16 Headache dicyclomine [From Bentyl] AdvReac Unknown Unknown Verified 12/23/20 13:16 ondansetron HCl AdvReac Unknown Migraine Verified 12/23/20 13:16 [From Zofran (as hydrochloride)] ketorolac [From Toradol] AdvReac Other Verified 12/23/20 13:16 Family History Grandmother Diabetes Other Family history of skin cancer High cholesterol Hypertension Surgical History History of surgery on arm History of thyroidectomy Lower extremity surgery planned Social History Smoking Status: Current every day smoker tobacco type: cigarettes Tobacco: How many years used: 13 Electronic Cigarette Use: not used second hand exposure: No alcohol intake: current alcohol intake frequency: holidays/special occasions only substance use type: does not use caffeine: Yes what type of physical activity do you participate in: none seatbelt use: always do you feel safe at home: Yes additional social history: emmy [place]IL[place] ED Constitutional Constitutional ED: Denies fever(s) or subjective Eyes Eyes: Denies blurry vision or change in vision ENT ENT ED: Denies rhinorrhea or sore throat Cardiovascular Cardiovascular: Reports as per HPI, chest pain, palpitations and racing heartbeat Respiratory/Chest Respiratory/Chest: Denies dyspnea Gastrointestinal Gastrointestinal: Denies abdominal pain, nausea or vomiting Genitourinary Genitourinary ED: Denies dysuria Musculoskeletal Musculoskeletal: Denies arthralgias, back pain, myalgias or neck pain Integumentary Denies rash Neurologic Neurologic: Denies headache(s), paresthesias or weakness Psychiatric Psychiatric: Reports anxiety Endocrine Endocrinology: Denies polyuria Hematologic/Lymphatic Hematologic/Lymphatic: Denies easy bleeding or easy bruising Allergic/Immunologic Allergic/Immunologic ED: Denies mouth swelling or urticaria EXAM Physical Exam Const Vital Signs: 12/28/20 01:11 12/28/20 01:37 Temperature 98.7 F Temperature Source Oral Pulse Rate 94 Respiratory Rate 22 H Blood Pressure 121/72 H Blood Pressure Mean 88 Pulse Ox 98 97 Oxygen Delivery Method Room Air Room Air Positive well nourished, well developed and obese General Appearance ED: well developed and NAD Nutritional Appearance: obese HEENT normocephalic and atraumatic Eyes PERRL and EOMs intact bilaterally Neck no lymphadenopathy and no JVD Chest Wall inspection of chest normal and palpation of chest normal Resp normal respiratory effort and clear to auscultation bilaterally Effort and Inspection: Negative for respiratory distress Auscultation: Negative for wheezes Cardio regular rate and regular rhythm GI normal to inspection, nondistended, normoactive bowel sounds, soft to palpation and non-tender Back/Spine no CVA tenderness Extremity normal to inspection Neuro oriented x3 Sensorium / Orientation: awake and alert Psych mental status grossly normal Skin no rashes or lesions noted MDM MDM MDM Narrative Medical decision making narrative: Patient is work including troponin is negative. Electrolytes CBC are good. I looked at her x-ray. There is an area of scarring at the right base. However, this has been seen on prior x-rays and CTs. She sees a casino floor walker for this. This is not new. I talked to the patient a lot. She has a long history of anxiety. She has been given many prescriptions but she states her anxiety makes it so she scared to take the prescriptions. She did try hydroxyzine once and it helped and I explained I would be happy to give this. She will follow up with her physician. Lab Data Attestation: I reviewed the patient's lab results. Labs: Laboratory Results - last 24 hr 12/28/20 12/28/20 01:38 01:38 WBC 5.8 RBC 4.88 Hgb 13.3 Hct 42.1 MCV 86.3 MCH 27.3 MCHC 31.6 L RDW Std Deviation 41.1 RDW Coeff of Mikel 13.2 Plt Count 198 MPV 11.0 Immature Gran % (Auto) 0.300 Neut % (Auto) 57.5 Lymph % (Auto) 28.3 [place] % (Auto) 9.9 Eos % (Auto) 3.3 Baso % (Auto) 0.7 Absolute Neuts (auto) 3.4 Absolute Lymphs (auto) 1.65 Nucleated RBC % 0 Sodium 138 Potassium 3.8 Chloride 106 Carbon Dioxide 28.0 Anion Gap 4 L BUN 11 Creatinine 0.81 Estim Creat Clear Calc 92.48 Est GFR (MDRD) Af Amer 105 Est GFR (MDRD) Non-Af 86 BUN/Creatinine Ratio 13.6 Glucose 125 H Calcium 9.0 Troponin I High Sens 3.9 EKG Initial EKG: Comments: EKG done for chest pain and read by me shows normal sinus rhythm with a rate of 85. No ectopy. No acute ST elevation or depression. MI interval, QRS duration and QTc are normal. Discharge Plan Triage Chief Complaint: Chest Pain ED Provider: Shaji Padilla Dx/Rx/DC Orders Clinical Impression: Chest pain, Anxiety Instructions: Anxiety Disorders Tx Therapy, ED Chest Pain, Uncertain Cause Prescriptions: New hydroxyzine pamoate [Vistaril] 25 mg capsule 25 mg PO TID PRN (Reason: anxiety) Qty: 14 RF: 0 No Action prochlorperazine maleate [Compazine] 10 mg tablet 10 mg PO BID PRN (Reason: Migraine Symptoms) RF: 0 ketoprofen 50 mg capsule 75 mg PO Q6H PRN (Reason: Migraine Symptoms) RF: 0 levothyroxine 112 mcg tablet 137 mcg PO DAILY RF: 0 Primary Care Provider: Nima Whitman Referrals: Nima Whitman MD [Primary Care Provider] - 3-5 Days Disposition Disposition: Home, Self Care
[2020-12-28 01:37] VITALS: O2SAT 97
[2020-12-28 01:47] LABS: Absolute Lymphocyte Count 1.65 X10^3/uL (0.83-4.51); Absolute Neutrophil Count 3.4 X10^3/uL (2.0-7.7); Basophil# 0.04 X10^3/uL; Basophil% 0.7 % (0-1); Eosinophil# 0.19 X10^3/uL; Eosinophils% 3.3 % (0-5); Hematocrit 42.1 % (37-47); Hemoglobin 13.3 g/dL (12.0-15.0); Lymphocyte # 1.65 X10^3/ul (0.83-4.51); Lymphocyte % 28.3 % (19-41); Mean Corp Hgb Conc 31.6 g/dL (32-36); Mean Corpuscular Hgb 27.3 pg (27.0-32.0); Mean Corpuscular Volume 86.3 fL (81-99); Monocyte# 0.58 X10^3/uL; Monocyte% 9.9 % (0-10); NRBC Flagged by Analyzer 0 % (0-5); Neutrophil # 3.36 X10^3/uL (2.7-7.7); Neutrophil % 57.5 % (47-70); Platelet Count 198 K/mm3 (150-450); RBC Distribution Width CV 13.2 % (11.6-14.6); RBC Distribution Width SD 41.1 fl (35.1-43.9); Red Blood Count 4.88 M/mm3 (4.2-5.4); White Blood Count 5.8 K/mm3 (4.4-11.0)
[2020-12-28 02:07] LABS: Anion Gap 4 (5-15); BUN 11 mg/dL (7-18); BUN/Creat Ratio 13.6 RATIO (10-20); Chloride 106 mmol/L (98-107); Creatinine, Serum 0.81 mg/dL (0.55-1.02); EST Glomerular Filtration Rate 86 mL/min (>60); Est Glom Filt Rate - Afr Amer 105 mL/min (>60); Estimated Creatinine Clearance 92.48 ml/min; Glucose 125 mg/dL (74-106); Potassium 3.8 mmol/L (3.5-5.1); Sodium Level 138 mmol/L (136-145); Troponin-I HS 3.9 pg/mL (3.0-53.7)
[2020-12-28] MEDS: hydrOXYzine PAM 25 MG Capsule PO (03:08)
== END 2020-12-28 03:11 | disposition home or self-care (01) ==
PROVIDERS: Emergency Provider Emergency Medicine; PCP Family Medicine
DX: R07.9 Chest pain, unspecified (principal); F41.1 Generalized anxiety disorder; E06.3 Autoimmune thyroiditis; G43.009 Migraine without aura, not intractable, without status migrainosus; E89.0 Postprocedural hypothyroidism; E66.9 Obesity, unspecified; F17.210 Nicotine dependence, cigarettes, uncomplicated; Z79.890 Hormone replacement therapy; Z79.899 Other long term (current) drug therapy; Z85.828 Personal history of other malignant neoplasm of skin; Z85.820 Personal history of malignant melanoma of skin
CPT/HCPCS: 71045; 80048; 84484; 85025; 93005; 99284

== ENCOUNTER → 2021-01-07 10:06 | Outpatient (CLI) | payer BC, MEDICAID, SELFPAY ==
[2020-12-16 07:57] VITALS: BMI 43.5
--- NOTE | 2021-01-07 10:12 | ECHOL_ITS ---
Reason For Study: DYSPNEA/SOB Procedure This was a limited 2D transthoracic echocardiogram. Limited views were obtained. The study was technically difficult. Exam performed in department. Left Ventricle Normal LV size. Left ventricular systolic function is normal. The estimated ejection fraction is 55 %. Right Ventricle Normal RV size. Normal systolic function. Atria Normal left atrium. Normal right atrium. Mitral Valve There is no mitral annular calcification. Normal mitral valve. Tricuspid Valve Normal tricuspid valve. Aortic Valve Trisinus/trileaflet aortic valve. Mild focal aortic valve thickening. Pulmonic Valve The pulmonic valve is not well visualized. Great Vessels The aortic root is not well visualized. Pericardium/Pleural No pericardial effusion. MMode/2D Measurements & Calculations LVIDd: 5.0 cm IVSd: 0.87 cm LAV(MOD-bp): 46.1 ml LVIDs: 3.2 cm LVPWd: 0.81 cm LAV(MOD-bp) Indexed: 21.8 ml/m2 RVDd: 3.5 cm FS: 37.3 % LAV(MOD-sp2): 43.1 ml LAV(MOD-sp4): 48.7 ml LA A4 area: 17.3 cm2 RA A4 area: 14.0 cm2 ECHO/Echo, Limited Study Interpretation Summary Limited views were obtained. The study was technically difficult. Left ventricular systolic function is normal. The estimated ejection fraction is 55 %. Ordering Physician: Deysi Mcfarlane Referring Physician: Nima Whitman Performed By: Joni, Babs, RDCS, RVT
--- NOTE | 2021-01-07 14:28 | PFTCOMP_ITS ---
COMPLETE PULMONARY FUNCTION TEST INTERPRETATION Brief HPI: Patient is a 35 year old female, currently under the care of Deysi Mcfarlane, who presents to [facility] for complete pulmonary function tests secondary to diagnosis of dyspnea. Respiratory therapist reports good effort and reproducible results. Interpretation: Forced expiration spirometry shows no large airways obstructive ventilatory defect with an FEV1 of 76% predicted. There is no significant bronchodilator response by strict ATS criteria. Spirograms are of good quality and plateau normally. The respiratory flow volume loop shows a normal pattern. Lung volumes by body plethysmography show a normal total lung capacity at 4.96 L, 90% predicted. All other lung volumes are within normal limits. Diffusion capacity by carbon monoxide is decreased at 64% predicted. The airway resistance is normal. No previous pulmonary function tests were available for review. Impression: Isolated reduction in diffusing capacity in a pattern consistent with pulmonary vascular disorder
== END ==
PROVIDERS: PCP Family Medicine; Referring Provider Nurse Practitioner Acute Care; Visit Provider Nurse Practitioner Acute Care
DX: R06.00 Dyspnea, unspecified (principal); R06.02 Shortness of breath
CPT/HCPCS: 93308; 94060; 94726; 94729

== ENCOUNTER 2021-01-23 16:40 | Emergency (ER) | payer BC, MEDICAID, SELFPAY ==
[2021-01-23 16:41] VITALS: BP 120/85; PULSE 96; RESP 18; TEMP 36.9; O2SAT 100; BMI 40.1
[2021-01-23 16:56] VITALS: BP 120/85; PULSE 96; RESP 18; TEMP 36.9; O2SAT 100
[2021-01-23] MEDS: dexAMETHasone 4 MG Tablet 10 MG PO (17:39)
--- NOTE | 2021-01-23 17:45 | RAD_ITS ---
STUDY: X-RAY CHEST REASON FOR EXAM: Female, 35 years old. cough TECHNIQUE: Single AP portable view of the chest. COMPARISON: 12/28/2020. FINDINGS: The lungs are clear and expanded. There is no demonstrated pleural abnormality. Normal size heart. Normal mediastinum and tho. Normal visualized pulmonary arteries. Normal visualized aortic arch and descending thoracic aorta. Normal visualized thoracic spine. Normal visualized ribs, clavicles, and shoulders. There is no demonstrated abnormality of the visualized soft tissue structures of the upper abdomen. RAD/Chest 1 View (Portable) IMPRESSION: Normal x-ray examination of the chest. Electronically Signed: Lobo Huston MD at 18:51 EDT , Service support ,
[2021-01-23 18:49] VITALS: RESP 20
--- NOTE | 2021-01-23 19:54 | EDS_ITS ---
HPI History of Present Illness Chief Complaint: Cough Narrative Narrative: Patient reports 3 to 4 days of nasal congestion cough and chest tightness. She states her children have been sick with similar symptoms and she is worried that they may develop Covid as a child of hers does have exposure to this. Secondary to her symptoms with concern for Covid she presents for evaluation [facility] Medical History (Updated 01/23/21 @ 19:[address] León Aiken, DO) ADHD (attention deficit hyperactivity disorder), combined type Back problem Bone fracture NICOLÁS (generalized anxiety disorder) Almaz's thyroiditis History of blood transfusion History of gestational diabetes History of skin cancer Melanoma Migraine without aura and with status migrainosus, not intractable Numbness and tingling of both upper extremities Numbness of both lower extremities Post herpetic neuralgia Thyroid disease Home Medications prochlorperazine maleate 10 mg tablet 10 mg PO BID PRN 07/03/19 [History Last Taken Unknown] ketoprofen 50 mg capsule 75 mg PO Q6H PRN cap 08/26/19 [History Last Taken Unknown] levothyroxine 137 mcg PO DAILY 10/14/20 [History Last Taken Unknown] hydroxyzine pamoate [Vistaril] 25 mg PO TID PRN #14 cap 12/28/20 [Rx Last Taken Unknown] albuterol sulfate 2 inh INHALATION Q6H PRN #1 ea 01/23/21 [Rx Last Taken Unknown] benzonatate [Tessalon Perles] 200 mg PO TID PRN 10 Days #60 cap 01/23/21 [Rx Last Taken Unknown] prednisone 40 mg PO DAILY 7 Days #14 tab 01/23/21 [Rx Last Taken Unknown] Allergy/AdvReac Type Severity Reaction Status Date / Time promethazine [From Phenergan] Allergy Unknown Unknown Verified 01/23/21 16:54 latex Allergy Itching Verified 01/23/21 16:54 naproxen Allergy Unknown Verified 01/23/21 16:54 Penicillins [PCN] Allergy Rash Verified 01/23/21 16:54 escitalopram [From Lexapro] AdvReac Intermediate Lightheaded Verified 01/23/21 16:54 sertraline [From Zoloft] AdvReac Intermediate Dizzy & Verified 01/23/21 16:54 Headache dicyclomine [From Bentyl] AdvReac Unknown Unknown Verified 01/23/21 16:54 ondansetron HCl AdvReac Unknown Migraine Verified 01/23/21 16:54 [From Zofran (as hydrochloride)] ketorolac [From Toradol] AdvReac Other Verified 01/23/21 16:54 Family History (Reviewed 01/11/21 @ 13:15 by Deysi Mcfarlane [employer]PERVIS[employer], SUPERVISOR [employer]-C) Grandmother Diabetes Other Family history of skin cancer High cholesterol Hypertension Surgical History History of surgery on arm History of thyroidectomy Lower extremity surgery planned Social History (Reviewed 01/11/21 @ 13:15 by Deysi Mcfarlane SUPERVIS[employer], SUPERVISOR [employer]-C) Smoking Status: Current every day smoker tobacco type: cigarettes Tobacco: How many years used: 13 Electronic Cigarette Use: not used second hand exposure: No alcohol intake: current alcohol intake frequency: holidays/special occasions only substance use type: does not use caffeine: Yes what type of physical activity do you participate in: none seatbelt use: always do you feel safe at home: Yes additional social history: emmy HAMILTON ED Constitutional Constitutional ED: Denies chills or fever(s) ENT ENT ED: Reports rhinorrhea and sore throat Cardiovascular Cardiovascular: Denies chest pain Respiratory/Chest Respiratory/Chest: Reports cough and dyspnea Gastrointestinal Gastrointestinal: Denies abdominal pain, nausea or vomiting Musculoskeletal Musculoskeletal: Denies myalgias Integumentary Denies rash Neurologic Neurologic: Denies headache(s) Psychiatric Psychiatric: Reports anxiety Allergic/Immunologic Allergic/Immunologic ED: Denies urticaria EXAM Physical Exam Const Vital Signs: 01/23/21 16:41 01/23/21 16:54 01/23/21 16:56 Temperature 98.4 F 98.5 F Temperature Source Temporal Temporal Pulse Rate 96 96 Respiratory Rate 18 18 Respiratory Effort Short of Breath Respiratory Depth Normal Respiratory Pattern Normal Blood Pressure 120/85 H 120/85 H Blood Pressure Mean 96 96 Pulse Ox 100 100 Oxygen Delivery Method Room Air Room Air 01/23/21 18:49 Temperature Temperature Source Pulse Rate Respiratory Rate 20 H Respiratory Effort Respiratory Depth Respiratory Pattern Blood Pressure Blood Pressure Mean Pulse Ox Oxygen Delivery Method Positive well nourished and well developed General Appearance ED: well developed Eyes PERRL and EOMs intact bilaterally Neck supple Neck Narrative: Positive anterior cervical lymphadenopathy Resp Resp Narrative: Breath sounds are slight diminished throughout with faint expiratory wheeze but no signs of respiratory distress Cardio regular rate and regular rhythm Extremity normal to inspection Extremity Narrative: No asymmetric edema no pitting edema negative Homans' sign bilaterally Neuro oriented x3 and CN's II-XII intact bilaterally Sensorium / Orientation: alert Psych mental status grossly normal Skin no rashes or lesions noted MDM MDM MDM Narrative Medical decision making narrative: Patient presented to the ER no acute respiratory distress but with her symptoms and possible Covid exposure and x-ray and rapid Covid test were obtained. Work-up was negative and on reevaluation she is resting comfortably. Therefore patient will be discharged with symptomatic medications for her viral upper respiratory infection Radiography Diagnostic Testing: Radiology Impression Chest X-Ray 01/23/21 17:45 IMPRESSION: Normal x-ray examination of the chest. Electronically Signed: Lobo Huston MD at 18:51 EDT , Service support , Discharge Plan Triage Chief Complaint: Cough ED Provider: León Aiken Dx/Rx/DC Orders Clinical Impression: Acute upper respiratory infection Prescriptions: New prednisone 20 mg tablet 40 mg PO DAILY 7 Days Qty: 14 RF: 0 benzonatate [Tessalon Perles] 100 mg capsule 200 mg PO TID PRN (Reason: cough) 10 Days Qty: 60 RF: 0 albuterol sulfate 90 mcg/actuation aerosol powdr breath activated 2 inh inhalation Q6H PRN (Reason: shortness of breath or wheezing) Qty: 1 RF: 0 No Action prochlorperazine maleate [Compazine] 10 mg tablet 10 mg PO BID PRN (Reason: Migraine Symptoms) RF: 0 ketoprofen 50 mg capsule 75 mg PO Q6H PRN (Reason: Migraine Symptoms) RF: 0 levothyroxine 112 mcg tablet 137 mcg PO DAILY RF: 0 hydroxyzine pamoate [Vistaril] 25 mg capsule 25 mg PO TID PRN (Reason: anxiety) Qty: 14 RF: 0 Primary Care Provider: Nima Whitman Referrals: Nima Whitman MD [Primary Care Provider] - Disposition Disposition: Home, Self Care Discharge Date/Time: 01/23/21 19:39
== END 2021-01-23 19:39 | disposition home or self-care (01) ==
LOC: ED 17:06
PROVIDERS: Emergency Provider Emergency Medicine; PCP Family Medicine
DX: J06.9 Acute upper respiratory infection, unspecified (principal); F17.210 Nicotine dependence, cigarettes, uncomplicated
CPT/HCPCS: 71045; 87426; 99283

== ENCOUNTER → 2021-01-27 10:37 | Outpatient (CLI) | payer BC, MEDICAID, SELFPAY ==
[2021-01-27 12:41] LABS: ALB/GLOB Ratio 0.9 RATIO (0.9-2.4); AST(SGOT) 18 U/L (15-37); Alanine Aminotransfer ALT/SGPT 45 U/L (13-56); Albumin, Serum 3.2 g/dL (3.2-5.0); Alkaline Phosphatase 66 U/L (45-117); Anion Gap 8 (5-15); BUN 10 mg/dL (7-18); BUN/Creat Ratio 12.7 RATIO (10-20); Calcium,Total 8.2 mg/dL (8.5-10.1); Chloride 105 mmol/L (98-107); Cholesterol 179 mg/dL (200); Creatinine, Serum 0.79 mg/dL (0.55-1.02); EST Glomerular Filtration Rate 89 mL/min (>60); Est Glom Filt Rate - Afr Amer 108 mL/min (>60); Globulin 3.6 g/dL (2.2-4.2); Glucose 152 mg/dL (74-106); High Density Lipoprotein 41 mg/dL; Potassium 3.4 mmol/L (3.5-5.1); Protein, Total 6.8 g/dL (6.4-8.2); Sodium Level 137 mmol/L (136-145); Thyroid Stim Hormone (TSH) 0.42 uIU/mL (0.358-3.74); Triglycerides 178 mg/dL; Very Low Density Lipoprotein 36 mg/dL (5-40)
[2021-01-27 12:49] LABS: Hemoglobin A1c 5.8 % (3.8-5.6)
== END ==
PROVIDERS: PCP Internal Medicine; Referring Provider Internal Medicine; Visit Provider Internal Medicine
DX: E03.8 Other specified hypothyroidism (principal); E06.3 Autoimmune thyroiditis; E66.01 Morbid (severe) obesity due to excess calories
CPT/HCPCS: 36415; 80053; 80061; 83036; 84443

== ENCOUNTER 2021-02-03 10:34 | Emergency (ER) | payer BC, MEDICAID, SELFPAY ==
[2021-02-03 10:35] VITALS: BP 141/85; PULSE 93; RESP 18; TEMP 37.1; O2SAT 100; BMI 40.1
[2021-02-03 10:39] VITALS: BP 141/85; PULSE 93; RESP 18; TEMP 37.1; O2SAT 100
[2021-02-03 10:40] VITALS: BP 141/85; PULSE 93; RESP 18; O2SAT 100
--- NOTE | 2021-02-03 11:29 | CT_ITS ---
STUDY: CTA CHEST REASON FOR EXAM: Female, 35 years old. Cough hemoptysis RADIATION DOSAGE (If Supplied By Facility): CTDIvol = ( 15.03 ) mGy, DLP = ( 523.61 ) mGycm TECHNIQUE: The examination was performed with the intravenous administration of IV 100mL Isovue-370. Post-processing of the angiographic images was performed, with multiplanar reformation and 3D reconstruction. Individualized dose optimization techniques were used for this CT. COMPARISON: Comparison is made with prior examination dated 11/02/2020. FINDINGS: Normal enhancement of the main pulmonary artery and right and left pulmonary arteries. Normal enhancement of the bilateral peripheral pulmonary arteries. There is no demonstrated pulmonary embolism. Normal thoracic aorta and visualized great vessels. There is no demonstrated aortic dissection. Normal heart and pericardium. Normal mediastinum. Normal hilar regions. Normal visualized trachea and bronchi. The lungs are well expanded. Interval decrease in size of the subpleural nodule seen in the lower lobes. Normal pleura. Normal chest wall structures. Normal osseous structures. Normal visualized upper abdomen. CT/CTA Chest W/WO Contrast IMPRESSION: No evidence of pulmonary embolus. Electronically Signed: Christiano Eduardo MD at 12:57 EDT , Service support ,
--- NOTE | 2021-02-03 11:31 | EDS_ITS ---
HPI History of Present Illness Chief Complaint: Shortness of Breath Informant: patient Narrative Narrative: Patient presents with cough wheezing and now some hemoptysis. She states her symptoms started 10 days or 2 weeks ago. She was seen here. X-ray was done. She then later followed up with her physician. She was placed on prednisone and doxycycline. She has 1 prednisone tablet left. She had stopped the doxycycline but is because she was told if she was getting better she could stop it. She stopped about 2 days ago but then the symptoms seem to get worse. She is now coughing up small amount of red blood. She denies any epistaxis. She is not having chest pains. She is having wheezing. She has no travel, surgery, personal or family history of DVT or PE. Her pain is not pleuritic. She is a smoker and was counseled to quit. She states she ge ts bronchitis very easily. [facility] Medical History ADHD (attention deficit hyperactivity disorder), combined type Back problem Bone fracture Bronchitis NICOLÁS (generalized anxiety disorder) Almaz's thyroiditis History of blood transfusion History of gestational diabetes History of skin cancer Hypocalcemia Melanoma Migraine without aura and with status migrainosus, not intractable Morbid obesity Numbness and tingling of both upper extremities Numbness of both lower extremities Post herpetic neuralgia Thyroid disease Tobacco abuse Type 2 diabetes mellitus Home Medications prochlorperazine maleate 10 mg tablet 10 mg PO BID PRN 07/03/19 [History Last Taken Unknown] ketoprofen 50 mg capsule 75 mg PO Q6H PRN cap 08/26/19 [History Last Taken Unknown] hydroxyzine pamoate [Vistaril] 25 mg PO TID PRN #14 cap 12/28/20 [Rx Last Taken Unknown] albuterol sulfate 2 inh INHALATION Q6H PRN #1 ea 01/23/21 [Rx Last Taken Unknown] benzonatate [Tessalon Perles] 200 mg PO TID PRN 10 Days #60 cap 01/23/21 [Rx Last Taken Unknown] dextroamphetamine-amphetamine 15 mg tablet 15 mg PO DAILY 01/27/21 [History Last Taken Unknown] levothyroxine 137 mcg capsule 137 mcg PO DAILY 01/27/21 [History Last Taken Unknown] inhalational spacing device [Aerochamber MV] #1 ea 02/03/21 [Rx Last Taken Unknown] prednisone 60 mg PO DAILY #15 tab 02/03/21 [Rx Last Taken Unknown] Allergy/AdvReac Type Severity Reaction Status Date / Time promethazine [From Phenergan] Allergy Unknown Unknown Verified 02/03/21 10:35 latex Allergy Itching Verified 02/03/21 10:35 naproxen Allergy Unknown Verified 02/03/21 10:35 Penicillins [PCN] Allergy Rash Verified 02/03/21 10:35 escitalopram [From Lexapro] AdvReac Intermediate Lightheaded Verified 02/03/21 10:35 sertraline [From Zoloft] AdvReac Intermediate Dizzy & Verified 02/03/21 10:35 Headache dicyclomine [From Bentyl] AdvReac Unknown Unknown Verified 02/03/21 10:35 ondansetron HCl AdvReac Unknown Migraine Verified 02/03/21 10:35 [From Zofran (as hydrochloride)] ketorolac [From Toradol] AdvReac Other Verified 02/03/21 10:35 Family History Grandmother Diabetes Other Family history of skin cancer High cholesterol Hypertension Surgical History History of surgery on arm History of thyroidectomy Lower extremity surgery planned Social History Smoking Status: Current every day smoker tobacco type: cigarettes Tobacco: How many years used: 13 Electronic Cigarette Use: not used second hand exposure: No alcohol intake: current alcohol intake frequency: holidays/special occasions only substance use type: does not use caffeine: Yes what type of physical activity do you participate in: none seatbelt use: always do you feel safe at home: Yes additional social history: emmy [facility]IL[place] ED Constitutional Constitutional ED: Denies fever(s) or subjective Eyes Eyes: Denies blurry vision ENT ENT ED: Reports rhinorrhea; Denies sore throat Cardiovascular Cardiovascular: Denies chest pain or palpitations Respiratory/Chest Respiratory/Chest: Reports cough, dyspnea and sputum Gastrointestinal Gastrointestinal: Denies nausea or vomiting Genitourinary Genitourinary ED: Denies hematuria Musculoskeletal Musculoskeletal: Denies arthralgias or myalgias Integumentary Denies rash Neurologic Neurologic: Denies headache(s), paresthesias or weakness Psychiatric Psychiatric: Denies depression Endocrine Endocrinology: Denies polyuria Allergic/Immunologic Allergic/Immunologic ED: Denies urticaria EXAM Physical Exam Const Vital Signs: 02/03/21 10:35 02/03/21 10:39 02/03/21 10:40 Temperature 98.7 F 98.7 F Temperature Source Temporal Temporal Pulse Rate 93 93 93 Respiratory Rate 18 18 18 Respiratory Effort Respiratory Depth Respiratory Pattern Blood Pressure 141/85 H 141/85 H 141/85 H Blood Pressure Mean 103 103 103 Pulse Ox 100 100 100 Oxygen Delivery Method Room Air Room Air Room Air 02/03/21 11:43 02/03/21 12:01 02/03/21 13:27 Temperature Temperature Source Pulse Rate 77 77 Respiratory Rate 16 16 Respiratory Effort Normal Respiratory Depth Normal Respiratory Pattern Normal Normal Blood Pressure 138/68 H Blood Pressure Mean 91 Pulse Ox 100 Oxygen Delivery Method Room Air Room Air Positive well nourished, well developed and obese Constitutional Narrative: Patient looks nontoxic. She is carrying on her normal conversation. General Appearance ED: well developed and NAD Nutritional Appearance: obese HEENT Reports TM's clear and moist mucous membranes HEENT Narrative: No facial tenderness. Both tympanic membranes do look clear. She had had some soreness on the right side but I do not see a cause for this. Tympanic Membrane ED: Yes TM's clear Eyes EOMs intact bilaterally Neck no lymphadenopathy and no JVD Neck Narrative: No stridor Chest Wall inspection of chest normal Resp normal respiratory effort Auscultation: wheezes; Negative for rales or rhonchi Cardio regular rate and regular rhythm GI normal to inspection, nondistended, normoactive bowel sounds and non-tender Palpation: soft Back/Spine no CVA tenderness Extremity normal to inspection General Extremety ED: Negative for edema or tenderness General Extremity: Negative for edema Neuro oriented x3 Sensorium / Orientation: alert Psych mental status grossly normal Skin no rashes or lesions noted and no wounds MDM MDM MDM Narrative Medical decision making narrative: Patient CBC is normal other than a minimal percentage increase in immature granulocytes. Electrolytes are normal other than a glucose of 130. Patient states she has had some mild elevation of glucose for a while. They are working on her smoking and then going to work on weight control and exercise. She was credited with working toward the goal. Her CT showed no acute process. There is no sign of pneumothorax or pulmonary embolus. There is no sign of infection. However, patient is still having some wheezing. She states she has had to have a slightly extended course of steroids before. I will write her for several days of prednisone. She has an albuterol but I will write for a spacer so it works better for her. We discussed reasons to return. 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 Lab Data Attestation: I reviewed the patient's lab results. Labs: Laboratory Results - last 24 hr 02/03/21 02/03/21 11:45 11:45 WBC 6.7 RBC 5.15 Hgb 14.2 Hct 43.9 MCV 85.2 MCH 27.6 MCHC 32.3 RDW Std Deviation 40.9 RDW Coeff of Mikel 13.2 Plt Count 190 MPV 10.6 Immature Gran % (Auto) 1.000 H Neut % (Auto) 59.6 Lymph % (Auto) 28.5 [place] % (Auto) 7.7 Eos % (Auto) 2.8 Baso % (Auto) 0.4 Absolute Neuts (auto) 4.0 Absolute Lymphs (auto) 1.92 Nucleated RBC % 0 Sodium 138 Potassium 3.8 Chloride 106 Carbon Dioxide 28.0 Anion Gap 4 L BUN 8 Creatinine 0.77 Estim Creat Clear Calc 97.28 Est GFR (MDRD) Af Amer 111 Est GFR (MDRD) Non-Af 92 BUN/Creatinine Ratio 10.4 Glucose 130 H Calcium 8.5 Radiography Diagnostic Testing: Radiology Impression Chest CTA 02/03/21 11:29 IMPRESSION: No evidence of pulmonary embolus. Electronically Signed: Christiano Eduardo MD at 12:57 EDT , Service support , Discharge Plan Triage Chief Complaint: Shortness of Breath ED Provider: Shaji Padilla Dx/Rx/DC Orders Clinical Impression: Acute bronchospasm Instructions: ED Bronchitis, No Antibiotic (Adult) Prescriptions: New prednisone 20 MG tablet 60 mg PO DAILY Qty: 15 RF: 0 (DME) Aerochamber MV Spacer See Rx Instructions .ROUTE .MEDSUPPLY Qty: 1 RF: 0 No Action prochlorperazine maleate [Compazine] 10 mg tablet 10 mg PO BID PRN (Reason: Migraine Symptoms) RF: 0 ketoprofen 50 mg capsule 75 mg PO Q6H PRN (Reason: Migraine Symptoms) RF: 0 dextroamphetamine-amphetamine 15 mg tablet 15 mg PO DAILY RF: 0 levothyroxine 137 mcg capsule 137 mcg PO DAILY RF: 0 hydroxyzine pamoate [Vistaril] 25 mg capsule 25 mg PO TID PRN (Reason: anxiety) Qty: 14 RF: 0 benzonatate [Tessalon Perles] 100 mg capsule 200 mg PO TID PRN (Reason: cough) 10 Days Qty: 60 RF: 0 albuterol sulfate 90 mcg/actuation aerosol powdr breath activated 2 inh inhalation Q6H PRN (Reason: shortness of breath or wheezing) Qty: 1 RF: 0 Primary Care Provider: Jose Alejandro London Referrals: Jose Alejandro London MD [Primary Care Provider] - 3-5 Days Disposition Disposition: Home, Self Care
[2021-02-03] MEDS: Ipratropium/Albuterol Sulfate 3 ML AMPUL.NEB INHALATION (11:38)
[2021-02-03 11:43] VITALS: PULSE 77; RESP 16
[2021-02-03 11:58] LABS: Absolute Lymphocyte Count 1.92 X10^3/uL (0.83-4.51); Basophil# 0.03 X10^3/uL; Basophil% 0.4 % (0-1); Eosinophil# 0.19 X10^3/uL; Eosinophils% 2.8 % (0-5); Hematocrit 43.9 % (37-47); Hemoglobin 14.2 g/dL (12.0-15.0); Lymphocyte # 1.92 X10^3/ul (0.83-4.51); Lymphocyte % 28.5 % (19-41); Mean Corp Hgb Conc 32.3 g/dL (32-36); Mean Corpuscular Hgb 27.6 pg (27.0-32.0); Mean Corpuscular Volume 85.2 fL (81-99); Mean Platelet Vol. 10.6 fl (6.2-12.0); Monocyte# 0.52 X10^3/uL; Monocyte% 7.7 % (0-10); NRBC Flagged by Analyzer 0 % (0-5); Neutrophil # 4.01 X10^3/uL (2.7-7.7); Neutrophil % 59.6 % (47-70); Platelet Count 190 K/mm3 (150-450); RBC Distribution Width CV 13.2 % (11.6-14.6); RBC Distribution Width SD 40.9 fl (35.1-43.9); Red Blood Count 5.15 M/mm3 (4.2-5.4); White Blood Count 6.7 K/mm3 (4.4-11.0)
[2021-02-03 12:01] VITALS: O2SAT 100
[2021-02-03] MEDS: MethylPREDNISolone 125 MG/2 ML Vial IV (12:02)
[2021-02-03 12:08] LABS: Anion Gap 4 (5-15); BUN 8 mg/dL (7-18); BUN/Creat Ratio 10.4 RATIO (10-20); Calcium,Total 8.5 mg/dL (8.5-10.1); Chloride 106 mmol/L (98-107); Creatinine, Serum 0.77 mg/dL (0.55-1.02); EST Glomerular Filtration Rate 92 mL/min (>60); Est Glom Filt Rate - Afr Amer 111 mL/min (>60); Estimated Creatinine Clearance 97.28 ml/min; Glucose 130 mg/dL (74-106); Potassium 3.8 mmol/L (3.5-5.1); Sodium Level 138 mmol/L (136-145)
[2021-02-03 13:27] VITALS: BP 138/68; PULSE 77; RESP 16; O2SAT 100
--- NOTE | 2021-02-03 13:37 | ED.RN ---
PT RINGS OUT. PT ANGRY ABOUT WAIT TIME. EXPLAINED TO PT THAT WE ARE BUSY. APOLOGIZED. PT RUDE TO STAFF ABOUT WAITING. AWARE CHART UP FOR RE-EVAL
--- NOTE | 2021-02-03 14:34 | ED.RN ---
PT REMAINS ANGRY ABOUT WAIT TIME. PT RUDE WITH ED STAFF. IV REMOVED PER PT REQUEST. PT WALKS OUT
== END 2021-02-03 14:38 | disposition home or self-care (01) ==
PROVIDERS: Emergency Provider Emergency Medicine; PCP Internal Medicine
DX: J98.01 Acute bronchospasm (principal); R06.2 Wheezing; R04.2 Hemoptysis; E11.9 Type 2 diabetes mellitus without complications; E89.0 Postprocedural hypothyroidism; F90.9 Attention-deficit hyperactivity disorder, unspecified type; F41.1 Generalized anxiety disorder; E66.01 Morbid (severe) obesity due to excess calories; F17.210 Nicotine dependence, cigarettes, uncomplicated; Z79.52 Long term (current) use of systemic steroids; Z79.899 Other long term (current) drug therapy
CPT/HCPCS: 71275; 80048; 85025; 94640; 96361; 96374; 99284; J7030; Q9967; A4216

== ENCOUNTER → 2021-02-10 | Outpatient (CLI) | payer BC, MEDICAID, SELFPAY | END | disposition home or self-care (01) | LOC: BIMLAB 15:57 → LABSPEC 15:58 | PROVIDERS: PCP Internal Medicine; Referring Provider Nurse Practitioner Family; Visit Provider Nurse Practitioner Family | DX: R05 Cough (principal) | CPT/HCPCS: 87635; U0005; U0003 ==

== ENCOUNTER → 2021-02-23 12:12 | Outpatient (CLI) | payer BC, MEDICAID, SELFPAY | PROVIDERS: PCP Internal Medicine; Visit Provider Nurse Practitioner Acute Care | DX: G47.33 Obstructive sleep apnea (adult) (pediatric) (principal) | CPT/HCPCS: 95806 ==

== ENCOUNTER 2021-02-26 10:38 | Emergency (ER) | payer BC, MEDICAID, SELFPAY ==
[2021-02-26 10:39] VITALS: BP 136/87; PULSE 75; RESP 18; TEMP 36.5; O2SAT 97; BMI 39.5
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
[2021-02-26 11:29] VITALS: PULSE 82; RESP 17; O2SAT 98
== END 2021-02-26 11:33 | disposition home or self-care (01) ==
LOC: ED 11:15
PROVIDERS: Emergency Provider Emergency Medicine; PCP Internal Medicine
DX: M54.2 Cervicalgia (principal); M54.50 Low back pain, unspecified; G89.29 Other chronic pain; E11.9 Type 2 diabetes mellitus without complications; E06.3 Autoimmune thyroiditis; G43.009 Migraine without aura, not intractable, without status migrainosus; F41.1 Generalized anxiety disorder; F90.9 Attention-deficit hyperactivity disorder, unspecified type; E66.01 Morbid (severe) obesity due to excess calories; F17.210 Nicotine dependence, cigarettes, uncomplicated; Z79.890 Hormone replacement therapy; Z79.52 Long term (current) use of systemic steroids
CPT/HCPCS: 99282; J7030

== ENCOUNTER 2021-03-08 10:26 | Emergency (ER) | payer BC, MEDICAID, SELFPAY ==
[2021-03-08 10:28] VITALS: BP 148/92; PULSE 87; RESP 18; TEMP 36.1; O2SAT 97; BMI 37.1
--- NOTE | 2021-03-08 11:06 | VDLE_ITS ---
Reason For Study: pain RIGHT LEFT GSV is normal. GSV is normal. CFV is compressible, spontaneous, phasic, CFV is compressible, spontaneous, phasic, competent and demonstrates normal competent, and demonstrates normal augmentation. augmentation. FV is compressible, spontaneous, phasic, FV is compressible, spontaneous, phasic, competent and demonstrates normal competent and demonstrates normal augmentation. augmentation. POP V is compressible, spontaneous, phasic, POP V is compressible, spontaneous, phasic, competent and demonstrates normal competent and demonstrates normal augmentation. augmentation. T/P Trunk is compressible. T/P Trunk is compressible. PTV is compressible. PTV is compressible. RT PerV is compressible. LT PerV is compressible. Procedure This is a venous duplex using B-mode, color flow and spectral Doppler. Exam performed portable in ED. The exam was diagnostic. A preliminary report was called and/or faxed to Dr. Padilla. VL/Venous Duplex US - Hoang Extrem Interpretation Summary No evidence for acute deep venous thrombosis bilateral lower extremities with p atent and compressible bilateral great saphenous veins. Ordering Physician: Shaji Padilla Performed By: Juan J Banda RVT
[2021-03-08 11:38] LABS: Anion Gap 5 (5-15); BUN 8 mg/dL (7-18); BUN/Creat Ratio 9.2 RATIO (10-20); Calcium,Total 8.8 mg/dL (8.5-10.1); Chloride 108 mmol/L (98-107); Creatinine, Serum 0.87 mg/dL (0.55-1.02); EST Glomerular Filtration Rate 79 mL/min (>60); Est Glom Filt Rate - Afr Amer 96 mL/min (>60); Glucose 120 mg/dL (74-106); Potassium 3.7 mmol/L (3.5-5.1); Sodium Level 140 mmol/L (136-145)
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
[2021-03-08 14:09] VITALS: PULSE 92; RESP 17; O2SAT 97
== END 2021-03-08 14:10 | disposition home or self-care (01) ==
PROVIDERS: Emergency Provider Emergency Medicine; PCP Internal Medicine
DX: M54.50 Low back pain, unspecified (principal); G89.29 Other chronic pain; R25.2 Cramp and spasm; M62.830 Muscle spasm of back; E11.9 Type 2 diabetes mellitus without complications; E89.0 Postprocedural hypothyroidism; G43.009 Migraine without aura, not intractable, without status migrainosus; E66.01 Morbid (severe) obesity due to excess calories; F41.1 Generalized anxiety disorder; F17.210 Nicotine dependence, cigarettes, uncomplicated; Z79.890 Hormone replacement therapy; Z79.899 Other long term (current) drug therapy
CPT/HCPCS: 36415; 80048; 93970; 99284

== ENCOUNTER → 2021-03-26 15:13 | Outpatient (CLI) | payer BC, MEDICAID, SELFPAY ==
--- NOTE | 2021-03-26 15:20 | CT_ITS ---
STUDY: CT CHEST WITHOUT CONTRAST REASON FOR EXAM: Female, 35 years old. 4.3 x 1.4 cm density along the right hemidiaphragm. RADIATION DOSAGE (If Supplied By Facility): CTDIvol = ( 19.39 ) mGy, DLP = ( 702.45 ) mGycm TECHNIQUE: Transaxial imaging was performed without the administration of intravenous contrast material. Multiplanar coronal and sagittal images were reformatted. Individualized dose optimization techniques were used for this CT. COMPARISON: CTA of the chest, 02/03/2021. CTA of the chest, 11/02/2020. FINDINGS: The lungs are well-expanded. There is linear scarring in the right lung base along the lateral diaphragmatic surface. Similar scarring is seen in the left base. There is no acute infiltrate or mass. There is no demonstrated pleural abnormality. Normal heart and pericardium. Stable nonspecific subcentimeter mediastinal lymphadenopathy. Normal hilar regions. Normal unenhanced pulmonary arteries. Normal aorta arch and descending thoracic aorta. Normal osseous structures. There is no demonstrated abnormality of the visualized upper abdomen. CT/Chest without Contrast IMPRESSION: No acute intrathoracic abnormality or interval change. Electronically Signed: Ruben Stone DO at 16:16 EDT Tel [phone], Service support ,
== END ==
PROVIDERS: PCP Internal Medicine; Referring Provider Nurse Practitioner Acute Care; Visit Provider Nurse Practitioner Acute Care
DX: R91.8 Other nonspecific abnormal finding of lung field (principal)
CPT/HCPCS: 71250

== ENCOUNTER → 2021-04-20 | Outpatient (CLI) | payer BC, MEDICAID, SELFPAY ==
[2021-04-20 13:06] LABS: Amphetamine Urine VISTA NEGATIVE (<1000 ng/mL); Barbiturate Urine VISTA NEGATIVE (< 200 ng/mL); Benzodiazepine Urine VISTA NEGATIVE (< 200 ng/mL); Cocaine Urine VISTA NEGATIVE (< 300 ng/mL); Ecstacy Urine VISTA NEGATIVE (< 500 ng/mL); Methadone Urine VISTA NEGATIVE (< 300 ng/mL); PCP Urine VISTA NEGATIVE (< 25 ng/mL); THC Urine VISTA NEGATIVE (< 50 ng/mL); Vista UDS pH Range 6
== END | disposition home or self-care (01) ==
LOC: LABSPEC 10:11
PROVIDERS: PCP Internal Medicine; Referring Provider Nurse Practitioner Family; Visit Provider Nurse Practitioner Family
DX: G89.29 Other chronic pain (principal); M54.9 Dorsalgia, unspecified
CPT/HCPCS: 80307

== ENCOUNTER 2021-05-24 14:55 | Outpatient (CLI) | payer BC, MEDICAID, SELFPAY | END 2021-05-24 23:59 | disposition short-term general hospital (02) | LOC: LABSPEC 14:58 | PROVIDERS: PCP Internal Medicine; Referring Provider Physician Assistant; Visit Provider Physician Assistant | DX: Z20.822 Contact with and (suspected) exposure to COVID-19 (principal) | CPT/HCPCS: 87635; U0003; U0005 ==

== ENCOUNTER 2021-06-08 10:30 | Outpatient (CLI) | payer BC, MEDICAID, SELFPAY ==
[2021-06-08 12:10] LABS: Absolute Lymphocyte Count 1.22 X10^3/uL (0.83-4.51); Basophil# 0.03 X10^3/uL; Basophil% 0.6 % (0-1); Eosinophil# 0.16 X10^3/uL; Eosinophils% 3.3 % (0-5); Hematocrit 43.7 % (37-47); Hemoglobin 14.3 g/dL (12.0-15.0); Lymphocyte # 1.22 X10^3/ul (0.83-4.51); Mean Corp Hgb Conc 32.7 g/dL (32-36); Mean Corpuscular Hgb 27.5 pg (27.0-32.0); Mean Platelet Vol. 11.4 fl (6.2-12.0); Monocyte# 0.42 X10^3/uL; Monocyte% 8.6 % (0-10); NRBC Flagged by Analyzer 0 % (0-5); Neutrophil # 3.03 X10^3/uL (2.7-7.7); Neutrophil % 62.1 % (47-70); Platelet Count 178 K/mm3 (150-450); White Blood Count 4.9 K/mm3 (4.4-11.0)
[2021-06-08 12:25] LABS: AST(SGOT) 25 U/L (15-37); Alanine Aminotransfer ALT/SGPT 51 U/L (13-56); Albumin, Serum 3.6 g/dL (3.2-5.0); Alkaline Phosphatase 65 U/L (45-117); Anion Gap 6 (5-15); BUN 9 mg/dL (7-18); BUN/Creat Ratio 12.5 RATIO (10-20); Calcium,Total 8.7 mg/dL (8.5-10.1); Chloride 103 mmol/L (98-107); Creatinine, Serum 0.72 mg/dL (0.55-1.02); EST Glomerular Filtration Rate 99 mL/min (>60); Est Glom Filt Rate - Afr Amer 119 mL/min (>60); Globulin 3.7 g/dL (2.2-4.2); Glucose 102 mg/dL (74-106); Potassium 3.9 mmol/L (3.5-5.1); Protein, Total 7.3 g/dL (6.4-8.2); Sodium Level 139 mmol/L (136-145)
[2021-06-08 14:56] LABS: Vitamin D,25 Hydroxy 16.2 ng/mL
== END 2021-06-08 23:59 | disposition short-term general hospital (02) ==
LOC: BIMLAB 10:31
PROVIDERS: PCP Internal Medicine; Referring Provider Otolaryngology; Visit Provider Otolaryngology
DX: E89.0 Postprocedural hypothyroidism (principal); E83.51 Hypocalcemia; R10.11 Right upper quadrant pain
CPT/HCPCS: 36415; 80053; 82306; 84443; 85025

== ENCOUNTER 2021-06-11 08:42 | Outpatient (CLI) | payer BC, MEDICAID, SELFPAY ==
--- NOTE | 2021-06-11 08:47 | US_ITS ---
STUDY: ABDOMINAL ULTRASOUND - RIGHT UPPER QUADRANT REASON FOR VISIT: Female, 36 years old RUQ Pain TECHNIQUE: Ultrasound evaluation of the right upper quadrant was performed with real-time and static gonzalez-scale imaging. TECHNICAL QUALITY: Adequate. COMPARISON: Comparison is made with prior CT scan abdomen and pelvis dated 05/25/2020. FINDINGS: Liver: The liver is mildly enlarged and measures 18.8 cm. There is increased echogenicity consistent with fatty infiltration. The bile ducts are within normal limits. There is hepatic color flow. The direction of portal flow is hepatopetal. There is no demonstrated mass lesion. Gallbladder: Normal distended gallbladder. The gallbladder wall measures 3 mm. There is a negative sonographic Johnston''s sign. There is no pericholecystic fluid. There are no gallstones. Common Bile Duct (C.B.D.): The common bile duct measures 4 mm. Pancreas: Normal size of the head, body and tail of the pancreas. There is normal echogenicity of the pancreas. There is no demonstrated pancreatic mass or cyst. Right Kidney: Normal size of the right kidney. The right kidney measures 12.2 cm x 5.5 cm x 5.7 cm. Normal renal cortex. The right cortex measures 1.5 cm. There is no demonstrated renal mass or cyst. There is no right hydronephrosis. US/Abdomen Limited IMPRESSION: Borderline hepatomegaly and fatty infiltration of the liver. Electronically Signed: Christiano Eduardo MD at 10:17 EST , Service support ,
== END 2021-06-11 23:59 | disposition short-term general hospital (02) ==
LOC: US 08:44
PROVIDERS: PCP Internal Medicine; Referring Provider Internal Medicine; Visit Provider Internal Medicine
DX: R10.11 Right upper quadrant pain (principal)
CPT/HCPCS: 76705

== ENCOUNTER 2021-06-21 16:47 | Emergency (ER) | payer BC, MEDICAID, SELFPAY ==
[2021-06-21 16:48] VITALS: BP 132/88; PULSE 95; RESP 17; TEMP 36; O2SAT 98; BMI 39.0
--- NOTE | 2021-06-21 18:01 | CT_ITS ---
HISTORY: Right sided abdominal pain EXAMINATION: CT Abdomen And Pelvis W/ Contrast Injection TECHNIQUE: Helically acquired images were obtained of the abdomen and pelvis following IV contrast. A radiation dose optimization technique was used for this scan. IV Contrast dosage and agent: 100mL Isovue-370 Oral contrast: None. COMPARISON: May 25, 2020 FINDINGS: LOWER CHEST: Bibasilar dependent and/or fibrotic changes.. No cardiomegaly or pericardial effusion. LIVER: Homogeneous, stable enlargement to 21 cm. No concerning focal mass. GALLBLADDER AND BILIARY TREE: No calcified gallstones. No gallbladder distension or wall edema. No intra- or extrahepatic biliary ductal dilation. PANCREAS: No focal cystic or solid mass. SPLEEN: Stable splenomegaly. Without focal cystic or solid mass. ADRENAL GLANDS: No nodules. KIDNEYS AND URETERS: Normal renal size and position. No hydronephrosis. PERITONEUM: No ascites or free air. BOWEL: No evidence of acute appendicitis. No stomach or bowel distension. No focal inflammatory bowel wall changes. LYMPH NODES: No enlarged mesenteric or retroperitoneal lymph nodes. VESSELS: Aorta is non-dilated. URINARY BLADDER: Unremarkable. REPRODUCTIVE ORGANS: No pelvic masses. ABDOMINAL WALL: Small fat-containing umbilical hernia. BONES: No acute or aggressive abnormality. Stable right femoral fixator. CT/Abdomen/Pelvis W IV Cont ONLY IMPRESSION: No acute findings. In the abdomen or pelvis. Stable hepatosplenomegaly. Individualized dose optimization techniques were used for this CT. at 1927 Reported and signed by: Lorne Cooper MD Electronically Signed: Lorne Cooper MD at 19:25 EST ,
[2021-06-21] MEDS: Morphine 4 MG/ML Syringe IV (18:11)
[2021-06-21 20:21] VITALS: PULSE 78; RESP 15; O2SAT 99
--- NOTE | 2021-06-21 21:14 | EDS_ITS ---
HPI HPI - GI History of Present Illness Chief Complaint: Abd Pain Narrative Narrative: 36-year-old female presenting with abdominal pain. She states he had this for weeks. She has been seen by her PCP and had normal blood work. She was sent for an ultrasound cyst in the right upper quadrant and her gallbladder did look normal. She states she had some liver enlargement. Her primary care physician did try to order a HIDA scan outpatient however her insurance would not cover this. Patient continues to have intermittent pain which she describes as aching. She describes it as radiating across the abdomen to the left and to the right flank. She denies urinary complaints. She denies constipation or diarrhea. Has not had fever or chills. [facility] Medical History ADHD ADHD ADHD (attention deficit hyperactivity disorder), combined type Back problem Bone fracture Bronchitis Cervical radiculopathy Chronic back pain Chronic low back pain NICOLÁS (generalized anxiety disorder) Generalized anxiety disorder with panic attacks Almaz's thyroiditis History of blood transfusion History of gestational diabetes History of skin cancer Hypertension Hypocalcemia Left-sided low back pain with left-sided sciatica Melanoma Migraine Migraine without aura and with status migrainosus, not intractable Morbid obesity Numbness and tingling of both upper extremities Numbness of both lower extremities Post herpetic neuralgia RUQ abdominal pain Thyroid disease Tobacco abuse Type 2 diabetes mellitus Home Medications hydroxyzine pamoate [Vistaril] 25 mg PO TID PRN #14 cap 12/28/20 [Rx Last Taken Unknown] inhalational spacing device [Aerochamber MV] #1 ea 02/03/21 [Rx Last Taken Unknown] ketoprofen 75 mg capsule 75 mg PO Q6H PRN #100 cap 02/10/21 [Rx Last Taken Unknown] prochlorperazine maleate 10 mg tablet 10 mg PO BID PRN #30 tab 03/17/21 [Rx Last Taken Unknown] pregabalin 25 mg capsule 25 mg PO BID #60 cap 04/20/21 [Rx Last Taken Unknown] albuterol sulfate 2.5 mg INHALATION Q6H PRN #90 ml 05/25/21 [Rx Last Taken Unknown] nebulizers #1 ea 05/25/21 [Rx Last Taken Unknown] nicotine 21mg/24hr-14mg/24hr-7mg/24hr daily transderm patches,sequentl See Rx Instructions TRANSDERMAL .COMPLEX #56 patch 06/03/21 [Rx Last Taken Unknown] oxycodone-acetaminophen 5 mg-325 mg tablet 1 tab PO BID tab 06/03/21 [History Last Taken Unknown] amlodipine 5 mg tablet 5 mg PO DAILY #30 tab 06/04/21 [Rx Last Taken Unknown] ascorbic acid (vitamin C) 500 mg capsule mg PO 06/08/21 [History Last Taken Unknown] ascorbic acid 100 mg-elderberry fruit 50 mg chewable tablet tab PO 06/08/21 [History Last Taken Unknown] cholecalciferol (vitamin D3) 1,250 mcg (50,000 unit) capsule 1,250 mcg PO QWEEK #14 cap 06/08/21 [Rx Last Taken Unknown] zinc 50 mg tablet 50 mg PO DAILY 06/08/21 [History Last Taken Unknown] levothyroxine 125 mcg capsule 125 mcg PO DAILY #60 cap 06/10/21 [Rx Last Taken Unknown] Allergy/AdvReac Type Severity Reaction Status Date / Time promethazine [From Phenergan] Allergy Unknown Unknown Verified 06/21/21 16:48 latex Allergy Itching Verified 06/21/21 16:48 naproxen Allergy Unknown Verified 06/21/21 16:48 Penicillins [PCN] Allergy Rash Verified 06/21/21 16:48 escitalopram [From Lexapro] AdvReac Intermediate Lightheaded Verified 06/21/21 16:48 sertraline [From Zoloft] AdvReac Intermediate Dizzy & Verified 06/21/21 16:48 Headache dicyclomine [From Bentyl] AdvReac Unknown Unknown Verified 06/21/21 16:48 ondansetron HCl AdvReac Unknown Migraine Verified 06/21/21 16:48 [From Zofran (as hydrochloride)] acetaminophen [From Vicodin] AdvReac Other Verified 06/21/21 16:48 hydrocodone [From Vicodin] AdvReac Other Verified 06/21/21 16:48 ketorolac [From Toradol] AdvReac Other Verified 06/21/21 16:48 Family History Grandmother Diabetes Other Family history of skin cancer High cholesterol Hypertension Surgical History History of surgery on arm History of thyroidectomy Lower extremity surgery planned Social History Smoking Status: Current every day smoker tobacco type: cigarettes Tobacco: How many years used: 13 Electronic Cigarette Use: not used second hand exposure: No alcohol intake: current alcohol intake frequency: holidays/special occasions only substance use type: does not use caffeine: Yes what type of physical activity do you participate in: none seatbelt use: always do you feel safe at home: Yes additional social history: emmy [place] ED Constitutional Constitutional ED: Denies chills or fever(s) ENT ENT ED: Denies rhinorrhea or sore throat Cardiovascular Cardiovascular: Denies chest pain or palpitations Respiratory/Chest Respiratory/Chest: Denies cough or dyspnea Gastrointestinal Gastrointestinal: Reports abdominal pain and nausea; Denies diarrhea or vomiting Genitourinary Genitourinary ED: Denies dysuria or hematuria Musculoskeletal Musculoskeletal: Denies arthralgias or myalgias Integumentary Denies abscess or rash Neurologic Neurologic: Denies headache(s) or weakness Psychiatric Psychiatric: Denies anxiety or depression EXAM Physical Exam Const Vital Signs: 06/21/21 16:48 06/21/21 20:21 Temperature 96.8 F L Temperature Source Temporal Pulse Rate 95 78 Respiratory Rate 17 15 Blood Pressure 132/88 H Blood Pressure Mean 102 Pulse Ox 98 99 Oxygen Delivery Method Room Air Positive well nourished General Appearance ED: NAD; Negative for pallor HEENT normocephalic and atraumatic Eyes PERRL and EOMs intact bilaterally General Eye ED: Negative for pale conjunctiva or scleral icterus Resp normal respiratory effort and clear to auscultation bilaterally Cardio regular rate and regular rhythm GI non-distended GI Narrative: Negative Johnston sign Palpation: soft and tender LUQ and RUQ Back/Spine no CVA tenderness Neuro Sensorium / Orientation: alert and oriented to person Psych mental status grossly normal Skin General Skin Exam: Negative for jaundice or pallor Lesions: no lesions Rashes: no rashes MDM MDM MDM Narrative Medical decision making narrative: Reviewed patient's recent lab work from a few days ago and this was normal. Patient had an ultrasound which did not identify any acute problems with the gallbladder. Based on her history and exam she has pain that radiates from the right upper quadrant to the left upper quadrant and to the right flank. She does not have a Johnston sign on exam. Since her blood work was normal I did give her morphine for pain and obtained a CT of the abdomen pelvis with IV contrast which did not identify any acute pathology a lthough it did identify liver enlargement and splenomegaly. Patient counseled on findings. I recommended to her that she follow-up with Dr. Rossana clark for GI evaluation. She was amenable to this. Patient will be discharged home in stable condition. Impression: 1. Abdominal pain Radiography Diagnostic Testing: Clinical Impression(s) from Imaging Studies Abdomen/Pelvis CT 06/21/21 18:01 IMPRESSION: No acute findings. In the abdomen or pelvis. Stable hepatosplenomegaly. Individualized dose optimization techniques were used for this CT. at 1927 Reported and signed by: Lorne Cooper MD Electronically Signed: Lorne Cooper MD at 19:25 EST , Discharge Plan Triage Chief Complaint: Abd Pain ED Provider: Vicenet Dudley Dx/Rx/DC Orders Instructions: ED Abdominal Pain Unkn Cause Fem Prescriptions: No Action prochlorperazine maleate [Compazine] 10 mg tablet 10 mg PO BID PRN (Reason: Migraine Symptoms) Qty: 30 RF: 1 ketoprofen 75 mg capsule 75 mg PO Q6H PRN (Reason: Migraine Symptoms) Qty: 100 RF: 0 pregabalin 25 mg capsule 25 mg PO BID Qty: 60 RF: 1 zinc 50 mg tablet 50 mg PO DAILY RF: 0 ascorbic acid (vitamin C) 500 mg capsule PO RF: 0 ascorbic acid-elderberry fruit [Airborne (elderberry)] 100-50 mg tablet,chewable PO RF: 0 cholecalciferol (vitamin D3) 1,250 mcg (50,000 unit) capsule 1,250 mcg PO QWEEK Qty: 14 RF: 1 oxycodone-acetaminophen 5-325 mg tablet 1 tab PO BID RF: 0 nicotine 21-14-7 mg/24 hr patch, TD daily, sequential See Rx Instructions transdermal .COMPLEX Qty: 56 RF: 0 amlodipine 5 mg tablet 5 mg PO DAILY Qty: 30 RF: 0 hydroxyzine pamoate [Vistaril] 25 mg capsule 25 mg PO TID PRN (Reason: anxiety) Qty: 14 RF: 0 (DME) Aerochamber MV Spacer See Rx Instructions .ROUTE .MEDSUPPLY Qty: 1 RF: 0 (DME) Aeroneb Go Nebulizer Misc See Rx Instructions .ROUTE .MEDSUPPLY Qty: 1 RF: 0 albuterol sulfate 2.5 mg /3 mL (0.083 %) solution for nebulization 2.5 mg inhalation Q6H PRN (Reason: shortness of breath or wheezing) Qty: 90 RF: 1 levothyroxine 125 mcg capsule 125 mcg PO DAILY Qty: 60 RF: 1 Primary Care Provider: Jose Alejandro London Referrals: Jose Alejandro London MD [Primary Care Provider] - Ralph Tracy DO [STAFF PHYSICIAN] - As soon as possible Disposition Disposition: Home, Self Care Discharge Date/Time: 06/21/21 20:21
== END 2021-06-21 20:21 | disposition home or self-care (01) ==
PROVIDERS: Emergency Provider Student in an Organized Health Care Education/Training Program; PCP Internal Medicine; Visit Provider Student in an Organized Health Care Education/Training Program
DX: R10.9 Unspecified abdominal pain (principal); E66.01 Morbid (severe) obesity due to excess calories; E11.9 Type 2 diabetes mellitus without complications; R16.2 Hepatomegaly with splenomegaly, not elsewhere classified; M54.9 Dorsalgia, unspecified; I10 Essential (primary) hypertension; E89.0 Postprocedural hypothyroidism; F17.210 Nicotine dependence, cigarettes, uncomplicated; F90.9 Attention-deficit hyperactivity disorder, unspecified type; G89.29 Other chronic pain; F41.1 Generalized anxiety disorder; Z85.820 Personal history of malignant melanoma of skin; Z79.899 Other long term (current) drug therapy; Z79.890 Hormone replacement therapy
CPT/HCPCS: 74177; 96374; 99283; J7030; Q9967; A4216

== ENCOUNTER 2021-07-06 11:26 | Outpatient (CLI) | payer BC, MEDICAID, SELFPAY ==
--- NOTE | 2021-07-06 11:48 | US_ITS ---
STUDY: ABDOMINAL ULTRASOUND - ELASTOGRAPHY REASON FOR VISIT: Female, 36 years old. Hepatomegaly. MARCELINO. TECHNIQUE: Liver stiffness measurements were obtained on a [employer] RS 85 ultrasound machine using a CA 1-7 probe following the SRU guidelines. 3 measurements were obtained using a 2-D-SWE method. The IQR/M was 21% suggesting a quality data set. TECHNICAL QUALITY: Adequate. COMPARISON: Comparison is made with prior study dated 12/09/2021. FINDINGS: Liver: Hepatomegaly and fatty infiltration of the liver. Median liver stiffness measured 6 kPa. US/Elastography Parenchyma/Organ IMPRESSION: Liver stiffness measures 6 kPa compatible with F 2 Metavir score. Electronically Signed: Christiano Eduardo MD at 15:08 EST ,
== END 2021-07-06 23:59 | disposition home or self-care (01) ==
LOC: US 11:30
PROVIDERS: PCP Internal Medicine; Referring Provider Internal Medicine Gastroenterology; Visit Provider Internal Medicine Gastroenterology
DX: K75.81 Nonalcoholic steatohepatitis (NASH) (principal)
CPT/HCPCS: 76981

== ENCOUNTER 2021-07-26 08:12 | Outpatient (CLI) | payer BC, MEDICAID, SELFPAY ==
--- NOTE | 2021-07-26 08:14 | RDU_ITS ---
Reason For Study: HTN Right Renal Artery Left Renal Artery Right renal artery ostium Left renal artery ostium 105/23.9 140.6/45.6 RSV/EDV. PSV/EDV. Right renal artery proximal Left renal artery proximal PSV/EDV 115.1/39.1 PSV/EDV. 109.4/19.5 . Right renal artery mid 144.6/59.5 Left renal artery mid 110.7/38.1 PSV/EDV. PSV/EDV . Right renal artery distal Left renal artery distal 128.8/50.2 145.3/44.6 PSV/EDV. PSV/EDV. Right Renal Parenchyma Left Renal Parenchyma Upper Pole Medula 30/14.5 PSV/EDV. Left upper pole medulla 26.9/10.4 Right upper pole medulla EDR 0.48 . PSV/EDV . Right upper pole medulla R.I. Left upper pole medulla EDR 0.39 . 0.52 . Left upper pole medulla R.I. 0.61 . Upper Pramod Cortx 19.1/7.2 PSV/EDV. UP Cortex 19.2/8.2 PSV/EDV. Right upper pole cortex EDR 0.38 . Left upper pole cortex EDR 0.34 . Right upper pole cortex R.I. 0.62 . Left upper pole cortex R.I. 0.57 . Right lower Pole medulla 30/12.7 Left lower Pole medulla 29.1/9.8 PSV/EDV . PSV/EDV . Right lower pole medulla EDR 0.42 . Left lower pole medulla EDR 0.44 . Right lower pole medulla R.I. Left lower pole medulla R.I. 0.66 . 0.58 . Lower Pole Cortx 19.2/8.2 PSV/EDV. Lower Pole Cortex 20/9 PSV/EDV. Left lower pole cortex EDR 0.43 . Right lower pole cortex EDR 0.45 . Left lower pole cortex R.I. 0.57 . Right lower pole cortex R.I. 0.55 . Left Renal Hilar Right Renal Hilar LT Hilar avg 54.8/20.7 PSV/EDV . Right Hilar avg 61.4/19.6 PSV/EDV. Left hilar acceleration time 40 Right hilar acceleration time 40 m/sec. m/sec. Left Renal Dimensions Right Renal Dimensions Left kidney size 12.54 cm . Right kidney size 1.66 cm . Left cortical dimension 1.69 cm . Aorta Proximal abdominal aorta 1.45 x 1.45 cm . Proximal abdominal aorta peak systolic velocity is 118.3 cm/sec . Distal abdominal aorta 1.13 x 1.13 cm . Distal abdominal aorta peak systolic velocity is 116.1 cm/sec . VL/Renal Artery Duplex Ultrasound Interpretation Summary Bilateral renal arteries with less than 60% degree of stenosis. Ordering Physician: Royce Mckinney Referring Physician: Jose Alejandro London Performed By: Angie Solomon RVT
== END 2021-07-26 23:59 | disposition home or self-care (01) ==
LOC: CVS 08:13
PROVIDERS: PCP Internal Medicine; Referring Provider Internal Medicine Cardiovascular Disease; Visit Provider Internal Medicine Cardiovascular Disease
DX: I49.49 Other premature depolarization (principal); R00.2 Palpitations; I10 Essential (primary) hypertension; R07.9 Chest pain, unspecified
CPT/HCPCS: 93975

== ENCOUNTER 2021-08-11 16:05 | Outpatient (CLI) | payer BC, MEDICAID, SELFPAY ==
[2021-08-11 17:25] LABS: Thyroid Stim Hormone (TSH) 2.44 uIU/mL (0.358-3.74)
== END 2021-08-11 23:59 | disposition home or self-care (01) ==
LOC: BIMLAB 16:05
PROVIDERS: PCP Internal Medicine; Referring Provider Internal Medicine; Visit Provider Internal Medicine
DX: E03.8 Other specified hypothyroidism (principal); E06.3 Autoimmune thyroiditis
CPT/HCPCS: 36415; 84443

== ENCOUNTER 2021-08-20 15:32 | Emergency (ER) | payer BC, MEDICAID, SELFPAY ==
[2021-08-20 15:33] VITALS: BP 136/80; PULSE 84; RESP 16; TEMP 36.9; O2SAT 100; BMI 38.0
[2021-08-20 15:41] VITALS: BP 136/80; PULSE 84; RESP 16; TEMP 36.9; O2SAT 100
--- NOTE | 2021-08-20 15:46 | CT_ITS ---
STUDY: CT ABDOMEN AND PELVIS WITH CONTRAST REASON FOR EXAM: Female, 36 years old. RLQ Pain RADIATION DOSAGE (If Supplied By Facility): CTDIvol = ( 16.47 ) mGy, DLP = ( 1267.50 ) mGycm TECHNIQUE: Transaxial images were obtained from the dome of the diaphragm to the symphysis pubis without oral contrast. IV 100mL Isovue-370 was administered. Sagittal and coronal images were reconstructed. Individualized dose optimization techniques were used for this CT. COMPARISON: 06/21/2021 FINDINGS: Linear scars in the lung bases. Suggestion of diffuse hepatic steatosis. Mild splenomegaly measuring 14.1 cm and the greatest dimension. Unremarkable pancreas, adrenals, bilateral kidneys, and gallbladder. Normal appendix. Bowel loops nonobstructed. No free air or free fluid. No adenopathy. Small fat-containing umbilical hernia. Sections through the pelvis demonstrate a ruptured follicle in the left ovary. Urinary bladder grossly intact no acute osseous abnormality. CT/Abdomen/Pelvis W IV Cont ONLY IMPRESSION: Ruptured left ovarian follicle. No other acute finding the abdomen and pelvis. Normal appendix. Electronically Signed: Cain Vazquez MD at 17:51 EDT ,
--- NOTE | 2021-08-20 15:47 | EDS_ITS ---
HPI HPI - GI History of Present Illness Chief Complaint: Abd Pain Narrative Narrative: Patient presents with right flank and lower quadrant abdominal pain that she has had for months. States she has history of fatty liver/Howe and her liver is 2 times the normal size. She had been referred to gastroenterology with Dr. Tracy. Over the last 1 to 2 weeks she has had right-sided pain. She describes it as both dull and achy, and sharp and stabbing. She was nauseated once during the last 24 hours. She also states that she had a bowel movement and there was a small amount of bright red blood on the toilet tissue. She has had continued pain. Nothing makes it better, but is worse with lying on her side. She denies any fevers or chills. No dysuria or hematuria, no other symptoms. Of note, she does have history in her EMR of chronic low back pain. Last menstrual period was 2 weeks ago. [facility] Medical History Abdominal pain ADHD ADHD (attention deficit hyperactivity disorder), combined type Back problem Bone fracture Bronchitis Cervical radiculopathy Chronic back pain Chronic low back pain Ectopic cardiac beats Essential hypertension NICOLÁS (generalized anxiety disorder) Generalized anxiety disorder with panic attacks Almaz's thyroiditis History of acne History of blood transfusion History of gestational diabetes Hypocalcemia Left-sided low back pain with left-sided sciatica Melanoma Migraine Migraine without aura and with status migrainosus, not intractable Morbid obesity HOWE (nonalcoholic steatohepatitis) Numbness and tingling of both upper extremities Numbness of both lower extremities Palpitations Post herpetic neuralgia RUQ abdominal pain Thyroid disease Tinnitus Tobacco abuse Type 2 diabetes mellitus Vertigo Home Medications inhalational spacing device [Aerochamber MV] #1 ea 02/03/21 [Rx Last Taken Unknown] ketoprofen 75 mg capsule 75 mg PO Q6H PRN #100 cap 02/10/21 [Rx Last Taken Unknown] albuterol sulfate 2.5 mg INHALATION Q6H PRN #90 ml 05/25/21 [Rx Last Taken Unknown] nebulizers #1 ea 05/25/21 [Rx Last Taken Unknown] nicotine 21mg/24hr-14mg/24hr-7mg/24hr daily transderm patches,sequentl See Rx Instructions TRANSDERMAL .COMPLEX #56 patch 06/03/21 [Rx Last Taken Unknown] oxycodone-acetaminophen 5 mg-325 mg tablet 1 tab PO BID tab 06/03/21 [History Last Taken Unknown] cholecalciferol (vitamin D3) 1,250 mcg (50,000 unit) capsule 1,250 mcg PO QWEEK #14 cap 06/08/21 [Rx Last Taken Unknown] levothyroxine 125 mcg capsule 125 mcg PO DAILY #60 cap 06/10/21 [Rx Last Taken Unknown] amlodipine 5 mg tablet 5 mg PO DAILY #90 tab 06/28/21 [Rx Last Taken Unknown] hydroxyzine pamoate 50 mg capsule 50 mg PO TID PRN #20 cap 06/28/21 [Rx Last Taken Unknown] prochlorperazine maleate 10 mg tablet 10 mg PO BID PRN #30 tab 06/28/21 [Rx Last Taken Unknown] ursodiol 300 mg capsule 300 mg PO BID #60 cap 07/07/21 [Rx Last Taken Unknown] vitamin E mixed 400 unit capsule 800 unit PO .qd #60 cap 07/07/21 [Rx Last Taken Unknown] meclizine 25 mg tablet 25 mg PO BID PRN #30 tab 08/11/21 [Rx Last Taken Unknown] hyoscyamine sulfate 0.125 mg tablet 0.125 mg PO BID-QID PRN #40 tab 08/18/21 [Rx Last Taken Unknown] Allergy/AdvReac Type Severity Reaction Status Date / Time promethazine [From Phenergan] Allergy Unknown Unknown Verified 08/20/21 15:46 latex Allergy Itching Verified 08/20/21 15:46 naproxen Allergy Unknown Verified 08/20/21 15:46 Penicillins [PCN] Allergy Rash Verified 08/20/21 15:46 escitalopram [From Lexapro] AdvReac Intermediate Lightheaded Verified 08/20/21 15:46 sertraline [From Zoloft] AdvReac Intermediate Dizzy & Verified 08/20/21 15:46 Headache dicyclomine [From Bentyl] AdvReac Unknown Unknown Verified 08/20/21 15:46 ondansetron HCl AdvReac Unknown Migraine Verified 08/20/21 15:46 [From Zofran (as hydrochloride)] acetaminophen [From Vicodin] AdvReac Other Verified 08/20/21 15:46 hydrocodone [From Vicodin] AdvReac Other Verified 08/20/21 15:46 ketorolac [From Toradol] AdvReac Other Verified 08/20/21 15:46 Family History Grandmother Diabetes Other Family history of skin cancer High cholesterol Hypertension Surgical History History of surgery on arm History of thyroidectomy Lower extremity surgery planned Social History Smoking Status: Current every day smoker tobacco type: cigarettes Tobacco: How many years used: 13 Electronic Cigarette Use: not used second hand exposure: No alcohol intake: current alcohol intake frequency: holidays/special occasions only substance use type: does not use caffeine: Yes what type of physical activity do you participate in: none seatbelt use: always do you feel safe at home: Yes additional social history: emmy HAMILTON Narrative Constitutional: No fever, no chills. HEENT: No sore throat. No neck pain. No loss of vision. No rhinorrhea. Cardiovascular: No chest pain. No palpitations. No pedal edema. Respiratory: No cough, no shortness of breath. Abdominal: Right flank to right lower quadrant abdominal pain. Positive nausea. No vomiting. Genitourinary: No dysuria. No hematuria. Musculoskeletal: No myalgias. No arthralgias. Neurologic: No headaches. No dizziness. No lightheadedness. Skin: No rash. No change in color. Psychiatric: No depression. No anxiety. EXAM Physical Exam Narrative Exam Narrative: Afebrile. Vital signs noted. HEENT: Normocephalic. Atraumatic. PERRL, EOMI. Neck soft and supple. No point tenderness or step off. Cardiovascular: Regular rate and rhythm. No murmurs, rubs, or gallops appreciated. Respiratory: No tachypnea. Lungs clear to auscultation bilaterally. Gastrointestinal: Abdomen soft, obese, mild tenderness to palpation right lower quadrant, with normoactive bowel sounds. No rebound or guarding. No peritoneal signs. Neurological: Awake. Alert. Nonfocal, nonlateralizing. Skin: No rash. Normal color. No pallor. Musculoskeletal: No pedal edema. Full range of motion extremities. Const Vital Signs: 08/20/21 15:33 08/20/21 15:41 Temperature 98.5 F 98.5 F Temperature Source Temporal Temporal Pulse Rate 84 84 Respiratory Rate 16 16 Blood Pressure 136/80 H 136/80 H Blood Pressure Mean 98 98 Pulse Ox 100 100 Oxygen Delivery Method Room Air Room Air MDM MDM MDM Narrative Medical decision making narrative: Comprehensive work-up was pursued. She was bolused normal saline. I will obtain a CBC, CMP, urinalysis, and CT imaging. Her CBC is grossly normal with a normal white count of 5.0, hemoglobin normal at 14.6, platelet count normal at 183. Her CMP is grossly unremarkable except for a low anion gap of 4, AST low at 14, ALT normal at 30. Lipase also normal at 119. Serum negative. Urinalysis shows no evidence of infection. I do not feel antibiotics are indicated. Her CT of the abdomen pelvis shows a ruptured ovarian cyst on the left. Appendix is visualized and appears normal. Otherwise, there is no obstruction. There is no other acute finding. 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 I was going to write her for dicyclomine, but she has listed that as an unknown allergy reaction, although she does not recall anything. I was going to write her for Zofran but she says that she has Compazine at home. She also lists an allergy to this. At this point in time, I feel she be discharged safely home with follow-up. Return instructions were reviewed. Disposition is discharged home in stable condition. Lab Data Attestation: I reviewed the patient's lab results. Labs: Laboratory Results - last 24 hr 08/20/21 08/20/21 08/20/21 15:55 15:55 15:55 WBC 5.0 RBC 5.32 Hgb 14.6 Hct 44.8 MCV 84.2 MCH 27.4 MCHC 32.6 RDW Std Deviation 41.4 RDW Coeff of Mikel 13.5 Plt Count 183 MPV 11.4 Immature Gran % (Auto) 0.200 Neut % (Auto) 59.5 Lymph % (Auto) 27.0 Bradford % (Auto) 9.7 Eos % (Auto) 2.8 Baso % (Auto) 0.8 Absolute Neuts (auto) 3.0 Absolute Lymphs (auto) 1.34 Nucleated RBC % 0 Sodium 137 Potassium 3.8 Chloride 107 Carbon Dioxide 26.0 Anion Gap 4 L BUN 6 L Creatinine 0.79 Estim Creat Clear Calc 93.93 Est GFR (MDRD) Af Amer 106 Est GFR (MDRD) Non-Af 88 BUN/Creatinine Ratio 7.6 L Glucose 87 Calcium 9.2 Total Bilirubin 0.30 AST 14 L ALT 30 Alkaline Phosphatase 65 Total Protein 7.9 Albumin 4.1 Globulin 3.8 Albumin/Globulin Ratio 1.1 Lipase 119 Serum , Qual NEGATIVE Urine Color Urine Clarity Urine pH Ur Specific Burgin Urine Protein Urine Glucose (UA) Urine Ketones Urine Occult Blood Urine Nitrite Urine Bilirubin Urine Urobilinogen Ur Leukocyte Esterase Urine RBC Urine WBC Ur Squamous Epith Cells Urine Bacteria Urine Mucus 08/20/21 16:05 WBC RBC Hgb Hct MCV MCH MCHC RDW Std Deviation RDW Coeff of Mikel Plt Count MPV Immature Gran % (Auto) Neut % (Auto) Lymph % (Auto) Bradford % (Auto) Eos % (Auto) Baso % (Auto) Absolute Neuts (auto) Absolute Lymphs (auto) Nucleated RBC % Sodium Potassium Chloride Carbon Dioxide Anion Gap BUN Creatinine Estim Creat Clear Calc Est GFR (MDRD) Af Amer Est GFR (MDRD) Non-Af BUN/Creatinine Ratio Glucose Calcium Total Bilirubin AST ALT Alkaline Phosphatase Total Protein Albumin Globulin Albumin/Globulin Ratio Lipase Serum , Qual Urine Color Yellow Urine Clarity Clear Urine pH 6.0 Ur Specific Burgin 1.015 Urine Protein Negative Urine Glucose (UA) Normal Urine Ketones Negative Urine Occult Blood Negative Urine Nitrite Negative Urine Bilirubin Negative Urine Urobilinogen Normal Ur Leukocyte Esterase Negative Urine RBC 0 SEEN Urine WBC 0 SEEN Ur Squamous Epith Cells 5-10 SEEN Urine Bacteria 0 SEEN Urine Mucus 0 SEEN Radiography Diagnostic Testing: Clinical Impression(s) from Imaging Studies Abdomen/Pelvis CT 08/20/21 15:46 IMPRESSION: Ruptured left ovarian follicle. No other acute finding the abdomen and pelvis. Normal appendix. Electronically Signed: Cain Vazquez MD at 17:51 EDT , Discharge Plan Triage Chief Complaint: Abd Pain ED Provider: Denver Pena Dx/Rx/DC Orders Clinical Impression: Abdominal pain, Right flank pain, Hepatomegaly Instructions: ED Abdominal Pain Unkn Cause Fem, ED Flank Pain, Uncertain Cause Prescriptions: No Action ketoprofen 75 mg capsule 75 mg PO Q6H PRN (Reason: Migraine Symptoms) Qty: 100 RF: 0 cholecalciferol (vitamin D3) 1,250 mcg (50,000 unit) capsule 1,250 mcg PO QWEEK Qty: 14 RF: 1 oxycodone-acetaminophen 5-325 mg tablet 1 tab PO BID RF: 0 nicotine 21-14-7 mg/24 hr patch, TD daily, sequential See Rx Instructions transdermal .COMPLEX Qty: 56 RF: 0 hydroxyzine pamoate 50 mg capsule 50 mg PO TID PRN (Reason: anxiety) Qty: 20 RF: 0 prochlorperazine maleate [Compazine] 10 mg tablet 10 mg PO BID PRN (Reason: Migraine Symptoms) Qty: 30 RF: 1 amlodipine 5 mg tablet 5 mg PO DAILY Qty: 90 RF: 0 meclizine 25 mg tablet 25 mg PO BID PRN (Reason: dizziness) Qty: 30 RF: 1 (DME) Aerochamber MV Spacer See Rx Instructions .ROUTE .MEDSUPPLY Qty: 1 RF: 0 (DME) Aeroneb Go Nebulizer Misc See Rx Instructions .ROUTE .MEDSUPPLY Qty: 1 RF: 0 albuterol sulfate 2.5 mg /3 mL (0.083 %) solution for nebulization 2.5 mg inhalation Q6H PRN (Reason: shortness of breath or wheezing) Qty: 90 RF: 1 levothyroxine 125 mcg capsule 125 mcg PO DAILY Qty: 60 RF: 1 vitamin E mixed 400 unit capsule 800 unit PO .qd Qty: 60 RF: 5 ursodiol 300 mg capsule 300 mg PO BID Qty: 60 RF: 5 hyoscyamine sulfate 0.125 mg tablet 0.125 mg PO BID-QID PRN (Reason: dyspepsia) Qty: 40 RF: 0 Primary Care Provider: Jose Alejandro London Referrals: Jose Alejandro London MD [Primary Care Provider] - Rossana,DO Ralph [STAFF PHYSICIAN] - As soon as possible Disposition Disposition: Home, Self Care
[2021-08-20] MEDS: 0.9% Normal Saline 1,000 ML 1000 ML IV (16:07)
[2021-08-20 16:13] LABS: Bacteria 0 SEEN /hpf (None Seen); Mucous, Urine 0 SEEN /hpf (<or=2+); Red Blood Cells-Urine 0 SEEN /hpf (0-5); White Blood Cells 0 SEEN /hpf (0-5)
[2021-08-20 16:15] LABS: Absolute Lymphocyte Count 1.34 X10^3/uL (0.83-4.51); Basophil# 0.04 X10^3/uL; Basophil% 0.8 % (0-1); Eosinophil# 0.14 X10^3/uL; Eosinophils% 2.8 % (0-5); Hematocrit 44.8 % (37-47); Hemoglobin 14.6 g/dL (12.0-15.0); Lymphocyte # 1.34 X10^3/ul (0.83-4.51); Mean Corp Hgb Conc 32.6 g/dL (32-36); Mean Corpuscular Hgb 27.4 pg (27.0-32.0); Mean Corpuscular Volume 84.2 fL (81-99); Mean Platelet Vol. 11.4 fl (6.2-12.0); Monocyte# 0.48 X10^3/uL; Monocyte% 9.7 % (0-10); NRBC Flagged by Analyzer 0 % (0-5); Neutrophil # 2.96 X10^3/uL (2.7-7.7); Neutrophil % 59.5 % (47-70); Platelet Count 183 K/mm3 (150-450); RBC Distribution Width CV 13.5 % (11.6-14.6); RBC Distribution Width SD 41.4 fl (35.1-43.9); Red Blood Count 5.32 M/mm3 (4.2-5.4)
[2021-08-20 16:16] LABS: Color, Urine Yellow (Yellow); Glucose, Dipstick Normal (Normal); Ketone-Dipstick Negative (Negative); Leukocyte Esterase-Dipstick Negative /ul (Negative); Nitrite-Dipstick Negative (Negative); Occult Blood-Urine Negative /ul (Negative); Protein-Dipstick Negative (Negative); Specific Gravity, Urine 1.015 (1.002-1.030); Urine Bilirubin Dipstick Negative (Negative); Urine Clarity Clear (Clear); Urine Urobilinogen Normal (Normal)
[2021-08-20 16:27] LABS: Squamous Epithelial Cells - UA 5-10 SEEN /hpf (5-10)
[2021-08-20 16:28] LABS: ALB/GLOB Ratio 1.1 RATIO (0.9-2.4); AST(SGOT) 14 U/L (15-37); Alanine Aminotransfer ALT/SGPT 30 U/L (13-56); Albumin, Serum 4.1 g/dL (3.2-5.0); Alkaline Phosphatase 65 U/L (45-117); Anion Gap 4 (5-15); BUN 6 mg/dL (7-18); BUN/Creat Ratio 7.6 RATIO (10-20); Calcium,Total 9.2 mg/dL (8.5-10.1); Chloride 107 mmol/L (98-107); Creatinine, Serum 0.79 mg/dL (0.55-1.02); EST Glomerular Filtration Rate 88 mL/min (>60); Est Glom Filt Rate - Afr Amer 106 mL/min (>60); Estimated Creatinine Clearance 93.93 ml/min; Globulin 3.8 g/dL (2.2-4.2); Glucose 87 mg/dL (74-106); Lipase 119 U/L (73-393); Potassium 3.8 mmol/L (3.5-5.1); Protein, Total 7.9 g/dL (6.4-8.2); Sodium Level 137 mmol/L (136-145)
[2021-08-20 16:33] LABS: Internal QC Validated? YES +Cl - CLEAR BKGD; Pregnancy, Serum, hCG Quali. NEGATIVE Negative
[2021-08-20 17:00] VITALS: BP 140/82; PULSE 85; RESP 18; TEMP 37; O2SAT 100
[2021-08-20 18:00] VITALS: BP 142/80; PULSE 80; RESP 16; TEMP 36.9; O2SAT 100
== END 2021-08-20 18:43 | disposition home or self-care (01) ==
PROVIDERS: Emergency Provider Emergency Medicine; PCP Internal Medicine; Visit Provider Emergency Medicine
DX: R10.9 Unspecified abdominal pain (principal); R16.0 Hepatomegaly, not elsewhere classified; F17.210 Nicotine dependence, cigarettes, uncomplicated; K76.0 Fatty (change of) liver, not elsewhere classified
CPT/HCPCS: 74177; 80053; 81001; 83690; 84703; 85025; 96360; 96361; 99283; J7030; Q9967; A4216

== ENCOUNTER 2021-08-25 22:00 | Emergency (ER) | payer BC, MEDICAID, SELFPAY ==
[2021-08-25 22:01] VITALS: BP 127/62; PULSE 85; RESP 16; TEMP 36.1; O2SAT 100; BMI 38.0
[2021-08-25 22:11] VITALS: BP 129/76; PULSE 89; TEMP 36.8; O2SAT 98
--- NOTE | 2021-08-25 22:23 | ED.VIS.BACK ---
HPI History of Present Illness Chief Complaint: Other, Pain/Inj Detail of Chief Complaint: Neck pain Informant: patient Onset/Context/Timing Onset: Days Context: Gradual Onset Timing: Intermittent Quality: Sharp Current Severity: Mild Maximum Severity: Mild Worsened by: improves with Movement Relieved by: Nothing Associated Symptoms Associated Symptoms: Negative for Numbness, Tingling, Radiation to Right Leg, Radiation to Left Leg, Fever, Abdominal Pain, Dysuria, Unable to Ambulate, Unable to Transfer, Urinary Retention and Urinary Incontinence Narrative Narrative: 36-year-old female has a history of ADHD, migraines, diabetes and chronic neck pain with degenerative disc disease. She said this been ongoing for the last 1 to 2 years is undergoing physical therapy. Says last 3 days she has had pain in her neck and goes up primarily right side of her neck to the back of her scalp. She denies other symptoms. She denies any weakness or numbness. No radiation to her arms or legs. She has never had back or neck surgery. Prior similar symptoms: Yes Recent Illness/Hospitalization: No PFSH PFSH Medical History Abdominal pain ADHD (attention deficit hyperactivity disorder), combined type Back problem Bone fracture Bronchitis Cervical radiculopathy Chronic back pain Chronic low back pain Ectopic cardiac beats Essential hypertension NICOLÁS (generalized anxiety disorder) Almaz's thyroiditis History of acne History of blood transfusion History of gestational diabetes Hypocalcemia Left-sided low back pain with left-sided sciatica Melanoma Migraine without aura and with status migrainosus, not intractable Morbid obesity MARCELINO (nonalcoholic steatohepatitis) Numbness and tingling of both upper extremities Numbness of both lower extremities Palpitations Post herpetic neuralgia Right femoral fracture RUQ abdominal pain Thyroid disease Tinnitus Tobacco abuse Type 2 diabetes mellitus Vertigo Home Medications inhalational spacing device [Aerochamber MV] #1 ea 02/03/21 [Rx Last Taken Unknown] ketoprofen 75 mg capsule 75 mg PO Q6H PRN #100 cap 02/10/21 [Rx Last Taken Unknown] albuterol sulfate 2.5 mg INHALATION Q6H PRN #90 ml 05/25/21 [Rx Last Taken Unknown] nebulizers #1 ea 05/25/21 [Rx Last Taken Unknown] nicotine 21mg/24hr-14mg/24hr-7mg/24hr daily transderm patches,sequentl See Rx Instructions TRANSDERMAL .COMPLEX #56 patch 06/03/21 [Rx Last Taken Unknown] oxycodone-acetaminophen 5 mg-325 mg tablet 1 tab PO BID tab 06/03/21 [History Last Taken Unknown] cholecalciferol (vitamin D3) 1,250 mcg (50,000 unit) capsule 1,250 mcg PO QWEEK #14 cap 06/08/21 [Rx Last Taken Unknown] levothyroxine 125 mcg capsule 125 mcg PO DAILY #60 cap 06/10/21 [Rx Last Taken Unknown] amlodipine 5 mg tablet 5 mg PO DAILY #90 tab 06/28/21 [Rx Last Taken Unknown] hydroxyzine pamoate 50 mg capsule 50 mg PO TID PRN #20 cap 06/28/21 [Rx Last Taken Unknown] prochlorperazine maleate 10 mg tablet 10 mg PO BID PRN #30 tab 06/28/21 [Rx Last Taken Unknown] ursodiol 300 mg capsule 300 mg PO BID #60 cap 07/07/21 [Rx Last Taken Unknown] vitamin E mixed 400 unit capsule 800 unit PO .qd #60 cap 07/07/21 [Rx Last Taken Unknown] meclizine 25 mg tablet 25 mg PO BID PRN #30 tab 08/11/21 [Rx Last Taken Unknown] hyoscyamine sulfate 0.125 mg tablet 0.125 mg PO BID-QID PRN #40 tab 08/18/21 [Rx Last Taken Unknown] metaxalone [Skelaxin] 800 mg PO TID PRN #21 tab 08/25/21 [Rx Last Taken Unknown] Allergy/AdvReac Type Severity Reaction Status Date / Time promethazine [From Phenergan] Allergy Unknown Unknown Verified 08/25/21 22:03 latex Allergy Itching Verified 08/25/21 22:03 naproxen Allergy Unknown Verified 08/25/21 22:03 Penicillins [PCN] Allergy Rash Verified 08/25/21 22:03 escitalopram [From Lexapro] AdvReac Intermediate Lightheaded Verified 08/25/21 22:03 sertraline [From Zoloft] AdvReac Intermediate Dizzy & Verified 08/25/21 22:03 Headache dicyclomine [From Bentyl] AdvReac Unknown Unknown Verified 08/25/21 22:03 ondansetron HCl AdvReac Unknown Migraine Verified 08/25/21 22:03 [From Zofran (as hydrochloride)] acetaminophen [From Vicodin] AdvReac Other Verified 08/25/21 22:03 hydrocodone [From Vicodin] AdvReac Other Verified 08/25/21 22:03 ketorolac [From Toradol] AdvReac Other Verified 08/25/21 22:03 Family History Grandmother Diabetes Other Family history of skin cancer High cholesterol Hypertension Surgical History History of surgery on arm History of thyroidectomy Social History Smoking Status: Current every day smoker tobacco type: cigarettes Tobacco: How many years used: 13 Electronic Cigarette Use: not used second hand exposure: No alcohol intake: current alcohol intake frequency: holidays/special occasions only substance use type: does not use caffeine: Yes what type of physical activity do you participate in: none seatbelt use: always do you feel safe at home: Yes additional social history: emmy HAMILTON ED ROS Narrative Neck pain Review of Systems ROS Unobtainable: Denies due to encephalopathy Constitutional Constitutional ED: Denies fever(s) Eyes Eyes: Denies change in vision ENT ENT ED: Denies ear pain Cardiovascular Cardiovascular: Denies chest pain Respiratory/Chest Respiratory/Chest: Denies dyspnea Gastrointestinal Gastrointestinal: Denies abdominal pain Genitourinary Genitourinary ED: Denies dysuria Musculoskeletal Musculoskeletal: Reports neck pain; Denies myalgias Integumentary Denies rash Neurologic Neurologic: Denies headache(s) Psychiatric Psychiatric: Denies depression Endocrine Endocrinology: Denies polyuria Hematologic/Lymphatic Hematologic/Lymphatic: Denies easy bruising Allergic/Immunologic Allergic/Immunologic ED: Denies urticaria EXAM Physical Exam Narrative Exam Narrative: 36-year-old female no acute distress. Vital signs stable afebrile. Sitting upright in bed. HEENT exam normal. TMs normal. Posterior pharynx normal. Neck she has reproducible right lateral neck soft tissue tenderness consistent with muscle strain and spasm. C-spine nontender. Trachea midline. Normal range of motion. No lymphadenopathy. Lungs are clear. Heart regular rate and rhythm. Abdomen soft nontender. Moving all 4 extremities. Normal strength and sensation. Exam benign. Const Vital Signs: 08/25/21 22:01 Temperature 97 F L Temperature Source Temporal Pulse Rate 85 Respiratory Rate 16 Blood Pressure 127/62 H Blood Pressure Mean 83 Pulse Ox 100 Oxygen Delivery Method Room Air Positive well nourished, well developed and obese; Negative for cachectic, contractures or unkempt General Appearance ED: well developed and NAD; Negative for unkempt, cachectic, contractures or pallor Nutritional Appearance: obese; Negative for cachectic HEENT Reports moist mucous membranes Negative for trauma or tenderness Eyes PERRL and EOMs intact bilaterally Neck no lymphadenopathy, supple and no JVD General: Negative for tenderness Resp normal respiratory effort and clear to auscultation bilaterally Effort and Inspection: Negative for pain with movement Auscultation: Negative for rales, rhonchi or wheezes Cardio regular rate, regular rhythm, S1 normal heart sound, S2 normal heart sound and no murmurs GI normal to inspection, nondistended, normoactive bowel sounds, soft to palpation, non-tender, non-distended and no masses Palpation: Negative for tender, guarding or rebound tenderness present Back/Spine no thoracic nor lumbar tenderness Back/Spine Narrative: Right-sided paracervical soft tissue muscle tenderness. General Back: Negative for CVA tenderness Cervical Spine: Negative for cervical spine tenderness and paracervical muscle tenderness Extremity normal to inspection General Extremety ED: Negative for edema or tenderness General Extremity: Negative for edema Neuro oriented x3 and no sensory deficits noted Sensorium / Orientation: alert; Negative for confused, lethargic or stuporous Motor Exam: strength 5/5 throughout Psych mental status grossly normal Appearance: Negative for unkempt Attitude: No agitated Mood & Affect: Negative for depressed or tearful Skin no rashes or lesions noted and no wounds General Skin Exam: Negative for jaundice or pallor MDM MDM MDM Narrative Medical decision making narrative: 36-year-old female has cervical strain and spasm. To be placed on the muscle relaxant Skelaxin. Shower, warm bath and massage. Anti-inflammatories. She is already on pain meds through pain management. Discharge Plan Triage Chief Complaint: Other, Pain/Inj ED Provider: Ry Enamorado Dx/Rx/DC Orders Clinical Impression: Cervical strain, Muscle spasm Instructions: ED Neck Spasm, No Trauma Prescriptions: New metaxalone [Skelaxin] 800 mg tablet 800 mg PO TID PRN (Reason: muscle pain) Qty: 21 RF: 0 No Action ketoprofen 75 mg capsule 75 mg PO Q6H PRN (Reason: Migraine Symptoms) Qty: 100 RF: 0 cholecalciferol (vitamin D3) 1,250 mcg (50,000 unit) capsule 1,250 mcg PO QWEEK Qty: 14 RF: 1 oxycodone-acetaminophen 5-325 mg tablet 1 tab PO BID RF: 0 nicotine 21-14-7 mg/24 hr patch, TD daily, sequential See Rx Instructions transdermal .COMPLEX Qty: 56 RF: 0 hydroxyzine pamoate 50 mg capsule 50 mg PO TID PRN (Reason: anxiety) Qty: 20 RF: 0 prochlorperazine maleate [Compazine] 10 mg tablet 10 mg PO BID PRN (Reason: Migraine Symptoms) Qty: 30 RF: 1 amlodipine 5 mg tablet 5 mg PO DAILY Qty: 90 RF: 0 meclizine 25 mg tablet 25 mg PO BID PRN (Reason: dizziness) Qty: 30 RF: 1 (DME) Aerochamber MV Spacer See Rx Instructions .ROUTE .MEDSUPPLY Qty: 1 RF: 0 (DME) Aeroneb Go Nebulizer Misc See Rx Instructions .ROUTE .MEDSUPPLY Qty: 1 RF: 0 albuterol sulfate 2.5 mg /3 mL (0.083 %) solution for nebulization 2.5 mg inhalation Q6H PRN (Reason: shortness of breath or wheezing) Qty: 90 RF: 1 levothyroxine 125 mcg capsule 125 mcg PO DAILY Qty: 60 RF: 1 vitamin E mixed 400 unit capsule 800 unit PO .qd Qty: 60 RF: 5 ursodiol 300 mg capsule 300 mg PO BID Qty: 60 RF: 5 hyoscyamine sulfate 0.125 mg tablet 0.125 mg PO BID-QID PRN (Reason: dyspepsia) Qty: 40 RF: 0 Primary Care Provider: Jose Alejandro London Referrals: Jose Alejandro London MD [Primary Care Provider] - 1 Week if not improving Activity Restrictions/Additional Instructions: Neck pain consistent with muscle spasm. Motrin for pain and inflammation. Hot shower, warm bath and massage relax muscles. Skelaxin as a muscle relaxant 3 times a day. Follow-up with your doctor if not improving. Disposition Disposition: Home, Self Care
[2021-08-25 22:48] VITALS: BP 114/83; PULSE 98; O2SAT 77
[2021-08-25] MEDS: Metaxalone 800 MG Tablet PO (23:10)
== END 2021-08-25 23:11 | disposition home or self-care (01) ==
LOC: ED 22:33
PROVIDERS: Emergency Provider Emergency Medicine; PCP Internal Medicine; Visit Provider Emergency Medicine
DX: S16.1XXA Strain of muscle, fascia and tendon at neck level, initial encounter (principal); M62.838 Other muscle spasm; M50.30 Other cervical disc degeneration, unspecified cervical region; G89.29 Other chronic pain; M54.9 Dorsalgia, unspecified; R51.9 Headache, unspecified; E11.9 Type 2 diabetes mellitus without complications; E06.3 Autoimmune thyroiditis; I10 Essential (primary) hypertension; F41.1 Generalized anxiety disorder; Z79.890 Hormone replacement therapy; Z79.899 Other long term (current) drug therapy; F17.210 Nicotine dependence, cigarettes, uncomplicated
CPT/HCPCS: 99282

== ENCOUNTER → 2021-09-23 | Outpatient (CLI) | payer BC, MEDICAID, SELFPAY ==
--- NOTE | 2021-09-23 12:37 | US_ITS ---
STUDY: ULTRASOUND OF THE FEMALE PELVIS - COMPLETE REASON FOR EXAM: Female, 36 years old. aub LMP: Unknown. TECHNIQUE: Transabdominal and Transvaginal TECHNICAL QUALITY: Adequate. COMPARISON: Comparison is made with prior study dated 03/14/2020. FINDINGS: The uterus measures 9.3 cm x 6.5 cm x 4.7 cm. There is a Nabothian cyst of the cervix. The endometrium measures 7 mm in thickness, and is hyperechoic. There is no demonstrated endometrial mass. There is no demonstrated myometrial mass. I.U.D. - The patient does not have an I.U.D. The right ovary is visualized. The right ovary measures 2.9 cm x 2.4 cm x 1.9 cm. There is no right ovarian cyst or ovarian mass. There is no visualized right adnexal mass or complex lesion. There is normal arterial and normal venous vascularity. The left ovary is visualized. The left ovary measures 2.6 cm x 2.2 cm x 2.8 cm. There is no left ovarian cyst or ovarian mass. There is no visualized left adnexal mass or complex lesion. There is normal arterial and normal venous vascularity. There is no fluid in the cul-de-sac. The pre void volume of the bladder was 93 ml. US/Transvaginal Non- IMPRESSION: Normal female pelvis. Electronically Signed: Christiano Eduardo MD at 14:22 EDT ,
--- NOTE | 2021-09-23 12:37 | BI_ITS ---
MAMMOGRAPHY - BILATERAL SCREENING REASON FOR EXAM: Female, 36 years old. Routine annual screening examination. PERTINENT HISTORY: Occasional left breast pain. TECHNIQUE: Digital bilateral breast alex (3D mammographic acquisition) in the CC and MLO projections. 2-D mediolateral oblique (MLO) and craniocaudad (CC) views of both breasts were obtained. CAD: Full Field Digital Mammography with Computer Added Detection was performed. COMPARISON: Comparison is made with prior study dated 07/22/2019 and 12/04/2019. FINDINGS: Breast Composition: There are scattered areas of fibroglandular density. There are no dominant masses or suspicious calcifications. Stable benign-appearing bilateral axillary lymph. No other significant abnormalities are identified. There has been no significant change since the prior study. BI/SCRN MAMM (CAD)W/ALEX BILAT IMPRESSION: Stable bilateral screening mammogram. Yearly follow-up mammogram recommended. (A) ASSESSMENT CATEGORY: BIRADS Category 2: Benign. A letter regarding these results will be sent to the patient by the facility within 30 days. Approximately 10% of breast cancers are not detected by mammography. A normal mammogram should not delay biopsy of a clinically suspicious abnormality. [id number] Electronically Signed: Christiano Eduardo MD at 13:34 EDT ,
--- NOTE | 2021-09-23 12:37 | US_ITS ---
STUDY: ULTRASOUND OF THE FEMALE PELVIS - COMPLETE REASON FOR EXAM: Female, 36 years old. aub LMP: Unknown. TECHNIQUE: Transabdominal and Transvaginal TECHNICAL QUALITY: Adequate. COMPARISON: Comparison is made with prior study dated 03/14/2020. FINDINGS: The uterus measures 9.3 cm x 6.5 cm x 4.7 cm. There is a Nabothian cyst of the cervix. The endometrium measures 7 mm in thickness, and is hyperechoic. There is no demonstrated endometrial mass. There is no demonstrated myometrial mass. I.U.D. - The patient does not have an I.U.D. The right ovary is visualized. The right ovary measures 2.9 cm x 2.4 cm x 1.9 cm. There is no right ovarian cyst or ovarian mass. There is no visualized right adnexal mass or complex lesion. There is normal arterial and normal venous vascularity. The left ovary is visualized. The left ovary measures 2.6 cm x 2.2 cm x 2.8 cm. There is no left ovarian cyst or ovarian mass. There is no visualized left adnexal mass or complex lesion. There is normal arterial and normal venous vascularity. There is no fluid in the cul-de-sac. The pre void volume of the bladder was 93 ml. US/Pelvic (Non ) IMPRESSION: Normal female pelvis. Electronically Signed: Christiano Eduardo MD at 14:22 EDT ,
== END | disposition home or self-care (01) ==
LOC: US 12:35
PROVIDERS: PCP Internal Medicine; Visit Provider Obstetrics & Gynecology
DX: Z12.31 Encounter for screening mammogram for malignant neoplasm of breast (principal); N93.9 Abnormal uterine and vaginal bleeding, unspecified; Z85.828 Personal history of other malignant neoplasm of skin
CPT/HCPCS: 76830; 76856; 77063; 77067

== ENCOUNTER 2021-09-29 11:00 | Outpatient (RCR) | payer BC, MEDICAID, SELFPAY ==
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
--- NOTE | 2021-10-06 13:56 | HP.PT.NRP ---
AUSTIN RIVERA was seen in my office for initial evaluation on 06/02/21. The following Plan of Care was established for this patient: Initial Frequency: 2-3x /Week Initial Duration: 4-6 Weeks Patient/Client Instruction: Educate patient on: Condition, Plan of Care, Risk Factors For the Purpose of:: To improve self management Therapeutic Exercise to Include: Strength training, Body mechanics, Postural training, Flexibilty training, Neuromotor development, In an aquatic setting, Scapular Strength/Stabilization For the Purpose of:: To decrease pain, To increase ROM, To improve muscle performance and motor function, To increase tolerance to activity/condition/position, To improve ability of physical actions for home/community/work/leisure Cryotherapy (ice pack, ice massage): Yes Thermo therapy (hot pack): Yes Ultrasound (thermal/non thermal): Yes For the Purpose of:: To decrease pain, To improve nutrient delivery to tissue This patient was last seen in our office 09/29/21. Pertinent comments regarding their Physical therapy will appear below: This patient has not returned to Physical Therapy and is appropriate to return to MD for further follow-up as needed. Her initial Physical Therapy Evaluation was on 06/02/21 and since then she has only attended 5 appointments. She has cancelled or failed to show for multiple scheduled melanie'ts during this episode of care. She has not attended her last 3 scheduled melanie'ts and current insurance authorization is expiring. At this point I will be discontinuing this patient from physical therapy. I would be happy to see this patient again in the future if found appropriate by the physician. Thank you! Zully Graham, PT, Cert MDT Balance/Gait/Functional tests - Balance/Special Test Scores Oswestry Neck Score: 30
== END 2021-09-29 19:00 | disposition home or self-care (01) ==
LOC: PT 11:00
PROVIDERS: PCP Internal Medicine; Referring Provider Nurse Practitioner Family; Visit Provider Nurse Practitioner Family
DX: M47.812 Spondylosis without myelopathy or radiculopathy, cervical region (principal); M50.30 Other cervical disc degeneration, unspecified cervical region; M54.12 Radiculopathy, cervical region; M54.2 Cervicalgia; M54.9 Dorsalgia, unspecified
CPT/HCPCS: 97035; 97162; 97164; 97530

== ENCOUNTER → 2021-10-11 | Outpatient (CLI) | payer BC, MEDICAID, SELFPAY ==
--- NOTE | 2021-10-11 | EMB_PTH ---
PATIENT: AUSTIN RIVERA LOC: [facility] U#:[id number] AGE/SX: 36/F ROOM: RE10/11/[address]: Dr. Cassidy Moore MD : 1985 BED: DIS: 10/11/2021 SPEC #: [id number] RECD: 10/11/21 13:33 STATUS: NYA REOtis #: [id number] CHARISMA: 10/11/21 00:[address]: Cassidy Moore DEPT: SURGICAL PATHOLOGY RECD BY: Allen Guadarrama ENTERED: 10/11/21 13:33 SP TYPE: ENDOM BX/C COLLEEN DR: Dr. Jose Alejandro London MD Tissues: Endometrium, NOS Procedures: Surgery Specimen Level IV HEADER OPERATION: Endometrial biopsy PRE-OP DIAGNOSIS: Abnormal uterine bleeding TISSUE SUBMITTED: Endometrial biopsy MICROSCOPIC DIAGNOSIS Endometrial biopsy: Proliferative endometrium. AM:[email or web address] 10/12/2021 MICROSCOPIC DESCRIPTION Slides are reviewed. GROSS DESCRIPTION Received in fixative is one container labeled with the patient's name and designated endometrial biopsy. The specimen consists of multiple irregular fragments of pink-miller soft tissue that in aggregate measure 1.5 x 0.8 x <0.1 cm. The specimen is totally submitted in one cassette. / AM:gricelda 10/11/2021 TC:5 CPT:82584
== END | disposition home or self-care (01) ==
LOC: LABSPEC 12:46
PROVIDERS: PCP Internal Medicine; Referring Provider Obstetrics & Gynecology; Visit Provider Obstetrics & Gynecology
DX: R93.89 Abnormal findings on diagnostic imaging of other specified body structures (principal)
CPT/HCPCS: 88305

== ENCOUNTER → 2021-10-26 | Outpatient (CLI) | payer BC, MEDICAID, SELFPAY ==
--- NOTE | 2021-10-26 12:24 | STRESSREP_ITS ---
Stress Test Report Date: 10-26-2021 Procedure: Exercise tolerance test Indications: Chest pain; palpitations Consent: Per the patient Procedure: The patient exercised on a Ryne protocol for 6 minutes completing Stage II achieving a peak heart rate of 146 bpm (78% predicted maximal heart rate) with a peak blood pressure 160/70 mmHg and a peak MET capacity of approximately 7 MET's. The baseline ECG demonstrated normal sinus rhythm. The peak exercise ECG demonstrated no obvious ECG changes at the heart rate achieved. There were no cardiac dysrhythmias pretest, during exercise, or recovery. The functional capacity was considered average. The patient had no complaint of chest discomfort during exercise or recovery. The examination was discontinued secondary to dyspnea. Impression: 1. Technically inadequate (percent predicted maximal heart less than 85%) exercise tolerance test 2. Peak exercise ECG with no obvious ECG changes heart rate achieved 3. There were no cardiac dysrhythmias during exercise or recovery This note was generated with [employer] software. It may contain incorrect words, spelling, and punctuation that were not noted in checking the note before signing.
== END | disposition home or self-care (01) ==
LOC: CVS 10:13
PROVIDERS: PCP Internal Medicine; Visit Provider Physician Assistant Medical
DX: R00.2 Palpitations (principal); I10 Essential (primary) hypertension
CPT/HCPCS: 93017

== ENCOUNTER 2021-11-27 01:15 | Emergency (ER) | payer BC, MEDICAID, SELFPAY ==
[2021-11-27 01:16] VITALS: BP 126/85; PULSE 88; RESP 18; TEMP 36.8; O2SAT 99; BMI 38.6
--- NOTE | 2021-11-27 01:54 | CT_ITS ---
EXAM: CT HEAD WITHOUT INTRAVENOUS CONTRAST CLINICAL INDICATION: Paresthesia left facial tingling for 1 week, pain behind left eye for 3 days, headache. Also reported history of diabetes, hypertension, Almaz''s, migraines. TECHNIQUE: Multiple axial images were obtained of the head without intravenous contrast. This CT exam was performed using one or more of the following dose reduction techniques: automated exposure control, adjustment of the mA and/or kV according to patient size, and/or use of iterative reconstruction technique. This report was created using [employer] technology. RADIATION DOSE: CTDIvol = 44.99 mGy, DLP = 812.98 mGy-cm COMPARISON: CT soft tissue of the neck exam including [place] of [place] region from April 23, 2021 is provided. FINDINGS: BRAIN AND EXTRA-AXIAL SPACES: Unremarkable. No intra- or extra-axial hemorrhage. No evidence of acute infarct. No intracranial mass or mass effect. There is preservation of the gonzalez/white matter interface. Posterior fossa structures are unremarkable. Ventricles are appropriate for age. No hydrocephalus. Basal cisterns are patent. BONES/JOINTS: Unremarkable. No discrete lytic or blastic abnormalities. SINUSES: Completely included paranasal sinuses are unremarkable. MASTOID AIR CELLS: Unremarkable. Clear. ORBITS: Visualized globes, extraocular muscles, optic nerves and retrobulbar fat appear unremarkable. CT/Brain/Head without Contrast IMPRESSION: No acute findings in the head/brain. Electronically Signed: Selam Garcia MD at 2:59 EDT ,
[2021-11-27 02:09] LABS: Absolute Lymphocyte Count 1.49 X10^3/uL (0.83-4.51); Absolute Neutrophil Count 3.5 X10^3/uL (2.0-7.7); Basophil# 0.02 X10^3/uL; Basophil% 0.3 % (0-1); Eosinophil# 0.16 X10^3/uL; Eosinophils% 2.8 % (0-5); Hematocrit 39.9 % (37-47); Hemoglobin 12.8 g/dL (12.0-15.0); Lymphocyte # 1.49 X10^3/ul (0.83-4.51); Lymphocyte % 25.8 % (19-41); Mean Corp Hgb Conc 32.1 g/dL (32-36); Mean Corpuscular Hgb 27.9 pg (27.0-32.0); Mean Corpuscular Volume 86.9 fL (81-99); Mean Platelet Vol. 11.4 fl (6.2-12.0); Monocyte# 0.57 X10^3/uL; Monocyte% 9.9 % (0-10); NRBC Flagged by Analyzer 0 % (0-5); Neutrophil # 3.52 X10^3/uL (2.7-7.7); Neutrophil % 60.9 % (47-70); Platelet Count 168 K/mm3 (150-450); RBC Distribution Width CV 13.2 % (11.6-14.6); RBC Distribution Width SD 41.5 fl (35.1-43.9); Red Blood Count 4.59 M/mm3 (4.2-5.4); White Blood Count 5.8 K/mm3 (4.4-11.0)
[2021-11-27 02:36] LABS: Anion Gap 3 (5-15); BUN 8 mg/dL (7-18); BUN/Creat Ratio 9.8 RATIO (10-20); Calcium,Total 8.9 mg/dL (8.5-10.1); Chloride 105 mmol/L (98-107); Creatinine, Serum 0.82 mg/dL (0.55-1.02); EST Glomerular Filtration Rate 85 mL/min (>60); Est Glom Filt Rate - Afr Amer 102 mL/min (>60); Glucose 120 mg/dL (74-106); Magnesium 1.9 mg/dL (1.6-2.6); Potassium 4.4 mmol/L (3.5-5.1); Sodium Level 138 mmol/L (136-145); Thyroid Stim Hormone (TSH) 4.97 uIU/mL (0.358-3.74)
[2021-11-27 03:46] VITALS: BP 125/75; PULSE 70; RESP 15
--- NOTE | 2021-11-27 03:46 | EDS_ITS ---
HPI History of Present Illness Chief Complaint: Numb/Ting Narrative Narrative: Patient is a 36-year-old female who states she has cervical radiculopathy. She reports over the past week she has had intermittent bouts of numbness and tingling into the left side of her face as well as intermittent headaches. She denies any trauma fevers chills nausea or vomiting. She states however she feels like the symptoms have been slowly worsening and the fact that they are occurring more frequently and secondary to this she presents for evaluation [facility] Medical History (Updated 11/27/21 @ 03:[address] León Aiken, DO) Abdominal pain Acute bronchitis, unspecified Acute sinusitis, unspecified ADHD (attention deficit hyperactivity disorder), combined type Back problem Bone fracture Bronchitis Cervical lymphadenopathy Cervical radiculopathy Chronic back pain Chronic low back pain Chronic RUQ pain Ectopic cardiac beats Essential hypertension NICOLÁS (generalized anxiety disorder) Almaz's thyroiditis Heartburn History of acne History of blood transfusion History of gestational diabetes Hypocalcemia Left-sided low back pain with left-sided sciatica Melanoma Migraine without aura and with status migrainosus, not intractable Morbid obesity MARCELINO (nonalcoholic steatohepatitis) Numbness and tingling of both upper extremities Numbness of both lower extremities Palpitations Post herpetic neuralgia Right femoral fracture RUQ abdominal pain Thyroid disease Tinnitus Tobacco abuse Type 2 diabetes mellitus Vertigo Home Medications inhalational spacing device (Aerochamber MV) #1 ea 02/03/21 [Rx Last Taken Unknown] nebulizers (Aeroneb Go Nebulizer) #1 ea 05/25/21 [Rx Last Taken Unknown] oxycodone-acetaminophen 5 mg-325 mg tablet 1 tab PO BID 06/03/21 [History Last Taken Unknown] hydroxyzine pamoate 50 mg capsule 50 mg PO TID PRN anxiety #20 caps 06/28/21 [Rx Last Taken Unknown] ursodiol 300 mg capsule 300 mg PO BID #60 caps 07/07/21 [Rx Last Taken Unknown] vitamin E mixed 400 unit capsule 800 unit PO .qd #60 caps 07/07/21 [Rx Last Taken Unknown] meclizine 25 mg tablet 25 mg PO BID PRN dizziness #30 tabs 08/11/21 [Rx Last Taken Unknown] prochlorperazine maleate 10 mg tablet (Compazine) 10 mg PO BID PRN Migraine Symptoms #30 tabs 09/09/21 [Rx Last Taken Unknown] amlodipine 5 mg tablet 5 mg PO DAILY #90 tabs 10/06/21 [Rx Last Taken Unknown] ketoprofen 75 mg capsule 75 mg PO Q6H PRN Migraine Symptoms #100 caps 10/15/21 [Rx Last Taken Unknown] levothyroxine 125 mcg tablet 125 mcg PO DAILY #90 tabs 10/15/21 [Rx Last Taken Unknown] Bilateral wrist splints for carpal tunnel syndrome #2 ea 11/18/21 [Rx Last Taken Unknown] cetirizine 10 mg tablet (Zyrtec) 10 mg PO BID PRN 11/18/21 [History Last Taken Unknown] clobetasol 0.05 % topical cream 1 applic topical BID 11/18/21 [History Last Taken Unknown] cholecalciferol (vitamin D3) 1,250 mcg (50,000 unit) capsule 1,250 mcg PO QWEEK #4 caps 11/19/21 [Rx Last Taken Unknown] Allergy/AdvReac Type Severity Reaction Status Date / Time promethazine [From Phenergan] Allergy Unknown Unknown Verified 11/27/21 01:16 latex Allergy Itching Verified 11/27/21 01:16 naproxen Allergy Unknown Verified 11/27/21 01:16 Penicillins [PCN] Allergy Rash Verified 11/27/21 01:16 escitalopram [From Lexapro] AdvReac Intermediate Lightheaded Verified 11/27/21 01:16 sertraline [From Zoloft] AdvReac Intermediate Dizzy & Verified 11/27/21 01:16 Headache dicyclomine [From Bentyl] AdvReac Unknown Unknown Verified 11/27/21 01:16 ondansetron HCl AdvReac Unknown Migraine Verified 11/27/21 01:16 [From Zofran (as hydrochloride)] acetaminophen [From Vicodin] AdvReac Other Verified 11/27/21 01:16 hydrocodone [From Vicodin] AdvReac Other Verified 11/27/21 01:16 ketorolac [From Toradol] AdvReac Other Verified 11/27/21 01:16 Family History Grandmother Diabetes Other Family history of skin cancer High cholesterol Hypertension Surgical History History of surgery on arm History of thyroidectomy Social History Smoking Status: Current every day smoker tobacco type: cigarettes Tobacco: How many years used: 13 Electronic Cigarette Use: not used second hand exposure: No alcohol intake: current alcohol intake frequency: holidays/special occasions only substance use type: does not use caffeine: Yes what type of physical activity do you participate in: none seatbelt use: always do you feel safe at home: Yes additional social history: emmy [place] ED Constitutional Constitutional ED: Denies chills or fever(s) ENT ENT ED: Denies sore throat Cardiovascular Cardiovascular: Denies chest pain Respiratory/Chest Respiratory/Chest: Denies cough or dyspnea Gastrointestinal Gastrointestinal: Denies abdominal pain, diarrhea, nausea or vomiting Genitourinary Genitourinary ED: Denies dysuria Musculoskeletal Musculoskeletal: Denies myalgias Integumentary Denies rash Neurologic Neurologic: Reports headache(s) and paresthesias Hematologic/Lymphatic Hematologic/Lymphatic: Denies easy bleeding or easy bruising EXAM Physical Exam Const Vital Signs: 11/27/21 01:16 11/27/21 03:46 Temperature 98.3 F Temperature Source Temporal Pulse Rate 88 70 Respiratory Rate 18 15 Blood Pressure 126/85 H 125/75 H Blood Pressure Mean 98 Pulse Ox 99 Oxygen Delivery Method Room Air Positive well nourished and well developed General Appearance ED: well developed HEENT Reports moist mucous membranes Eyes PERRL and EOMs intact bilaterally Neck supple Neck Narrative: No meningeal signs Resp normal respiratory effort and clear to auscultation bilaterally Cardio regular rate and regular rhythm Extremity normal to inspection Neuro oriented x3 and CN's II-XII intact bilaterally Neuro Narrative: Cranial nerves II through XII are grossly intact there are no focal neurologic deficits. No pronator drift no dysmetria no truncal ataxia. NIH stroke scale score of 0 Sensorium / Orientation: alert Psych mental status grossly normal Skin no rashes or lesions noted MDM MDM MDM Narrative Medical decision making narrative: Patient presented to the ER with stroke scale score of 0 and stable vital. She reported intermittent headache and paresthesias and there was concern this could be due to electrolyte. Therefore basic work-up was obtained which revealed no acute finding. A noncontrast CT was obtained because of the intermittent headaches which showed no tumor or bleed or mass. On reevaluation she is resting comfortably she has had no return of symptoms and her neuro exam remains normal. Therefore at this time I do not feel there is need for further testing and patient can be discharged and follow-up with her doctor to discuss need for CTA or MRI if symptoms persist. However at this time I do feel they are most likely related to her previous neck issue and muscular tension and spasm versus true underlying neurologic event. Lab Data Attestation: I reviewed the patient's lab results. Labs: Laboratory Results - last 24 hr 11/27/21 11/27/21 02:00 02:00 WBC 5.8 RBC 4.59 Hgb 12.8 Hct 39.9 MCV 86.9 MCH 27.9 MCHC 32.1 RDW Std Deviation 41.5 RDW Coeff of Mikel 13.2 Plt Count 168 MPV 11.4 Immature Gran % (Auto) 0.300 Neut % (Auto) 60.9 Lymph % (Auto) 25.8 [place] % (Auto) 9.9 Eos % (Auto) 2.8 Baso % (Auto) 0.3 Absolute Neuts (auto) 3.5 Absolute Lymphs (auto) 1.49 Nucleated RBC % 0 Sodium 138 Potassium 4.4 Chloride 105 Carbon Dioxide 30.0 Anion Gap 3 L BUN 8 Creatinine 0.82 Estim Creat Clear Calc 90.50 Est GFR (MDRD) Af Amer 102 Est GFR (MDRD) Non-Af 85 BUN/Creatinine Ratio 9.8 L Glucose 120 H Calcium 8.9 Magnesium 1.9 TSH 4.97 H Radiography Diagnostic Testing: Clinical Impression(s) from Imaging Studies Brain CT 11/27/21 01:54 IMPRESSION: No acute findings in the head/brain. Electronically Signed: Selam Garcia MD at 2:59 EDT , Discharge Plan Triage Chief Complaint: Numb/Ting Other Complaint: Headache ED Provider: León Aiken Dx/Rx/DC Orders Clinical Impression: Paresthesia Instructions: ED Paraesthesias Prescriptions: No Action oxycodone-acetaminophen 5-325 mg tablet 1 tab PO BID ketoprofen 75 mg capsule 75 mg PO Q6H PRN (Reason: Migraine Symptoms) Qty: 100 0RF Rx Instructions: 1 cap PO at on set of headache max of 3 in 24 hours, max 20 per month levothyroxine 125 mcg tablet 125 mcg PO DAILY Qty: 90 2RF hydroxyzine pamoate 50 mg capsule 50 mg PO TID PRN (Reason: anxiety) Qty: 20 0RF meclizine 25 mg tablet 25 mg PO BID PRN (Reason: dizziness) Qty: 30 1RF clobetasol 0.05 % cream 1 applic topical BID cetirizine [Zyrtec] 10 mg tablet 10 mg PO BID PRN (DME) Bilateral wrist splints for carpal tunnel syndrome See Rx Instructions .Route .MEDSUPPLY Qty: 2 0RF Rx Instructions: As directed cholecalciferol (vitamin D3) 1,250 mcg (50,000 unit) capsule 1,250 mcg PO QWEEK Qty: 4 4RF (DME) Aerochamber MV Spacer See Rx Instructions .ROUTE .MEDSUPPLY Qty: 1 0RF Rx Instructions: As directed (DME) Aeroneb Go Nebulizer Misc See Rx Instructions .ROUTE .MEDSUPPLY Qty: 1 0RF Rx Instructions: As directed vitamin E mixed 400 unit capsule 800 unit PO .qd Qty: 60 5RF ursodiol 300 mg capsule 300 mg PO BID Qty: 60 5RF prochlorperazine maleate [Compazine] 10 mg tablet 10 mg PO BID PRN (Reason: Migraine Symptoms) Qty: 30 1RF amlodipine 5 mg tablet 5 mg PO DAILY Qty: 90 0RF Primary Care Provider: Jose Alejandro London Referrals: Jose Alejandro London MD [Primary Care Provider] - Activity Restrictions/Additional Instructions: Please talk to your doctor about possible changes to your thyroid medication as the value is slightly elevated today. If her symptoms persist please return to the ER or discuss obtaining a MRI from your family doctor for further evaluation Disposition Disposition: Home, Self Care Discharge Date/Time: 11/27/21 03:50
== END 2021-11-27 03:50 | disposition home or self-care (01) ==
PROVIDERS: Emergency Provider Emergency Medicine; PCP Internal Medicine; Visit Provider Emergency Medicine
DX: R20.2 Paresthesia of skin (principal); E66.01 Morbid (severe) obesity due to excess calories; M54.12 Radiculopathy, cervical region; I10 Essential (primary) hypertension; R51.9 Headache, unspecified; M54.9 Dorsalgia, unspecified; G89.29 Other chronic pain; F41.1 Generalized anxiety disorder; F17.210 Nicotine dependence, cigarettes, uncomplicated; Z79.890 Hormone replacement therapy; Z79.899 Other long term (current) drug therapy
CPT/HCPCS: 70450; 80048; 83735; 84443; 85025; 99283

== ENCOUNTER → 2021-12-07 | Outpatient (CLI) | payer BC, MEDICAID, SELFPAY ==
--- NOTE | 2021-12-07 13:31 | CT_ITS ---
STUDY: CT SOFT TISSUE NECK WITH CONTRAST REASON FOR EXAM: Female, 36 years old. Neck pain and swelling, lymphadenopathy RADIATION DOSAGE (If Supplied By Facility): CTDIvol = ( 19.17 ) mGy, DLP = ( 632.27 ) mGycm TECHNIQUE: The patient was scanned in a multi-detector CT scanner. High resolution transaxial imaging was performed following intravenous administration of IV 75mL Isovue-370. Sagittal and coronal images were reconstructed. Individualized dose optimization techniques were used for this CT. COMPARISON: Comparison is made with prior study dated 04/23/2020. FINDINGS: Normal bilateral parotid glands. Normal bilateral uncrater spaces. Normal bilateral parapharyngeal spaces. Normal bilateral carotid spaces. Normal bilateral sublingual and submandibular glands and spaces. Normal visualized nasopharynx. Normal retropharyngeal space. Normal perivertebral space. Normal visualized bilateral faucial tonsils. The visualized tongue, tongue base and oropharynx are normal. There are minimally enlarged lymph nodes of the neck, with preservation of normal osvaldo architecture, consistent with a reactive lymph hyperplasia. There is no demonstrated solid or cystic mass lesion. There is no abnormal contrast enhancement. Normal epiglottis, bilateral vallecula and hypopharynx. The pre-epiglottic and paraglottic adipose spaces are normal. Normal visualized bilateral piriform sinuses, aryepiglottic folds, vocal cords, and arytenoid-cricoid articulations. Normal subglottic trachea. Normal bilateral lobes of the thyroid gland. Normal visualized pulmonary apices. Normal visualized paranasal sinuses. Normal visualized cervical spine. CT/Soft Tissue Neck WITH Contrast IMPRESSION: Stable examination. Electronically Signed: Christiano Eduardo MD at 14:18 EDT ,
== END | disposition home or self-care (01) ==
LOC: CT 13:30
PROVIDERS: PCP Internal Medicine; Referring Provider Physician Assistant; Visit Provider Physician Assistant
DX: R59.0 Localized enlarged lymph nodes (principal); M54.2 Cervicalgia
CPT/HCPCS: 70491; Q9967

== ENCOUNTER 2021-12-23 22:18 | Emergency (ER) | payer BC, MEDICAID, SELFPAY ==
[2021-12-23 22:19] VITALS: BP 139/97; PULSE 89; RESP 16; TEMP 36.7; O2SAT 98; BMI 37.4
--- NOTE | 2021-12-23 22:34 | CT_ITS ---
STUDY: CT ABDOMEN AND PELVIS WITH CONTRAST REASON FOR EXAM: Female, 36 years old. pain RADIATION DOSAGE (If Supplied By Facility): CTDIvol = ( 20.30 ) mGy, DLP = ( 1370.70 ) mGycm TECHNIQUE: Transaxial images were obtained from the dome of the diaphragm to the symphysis pubis without oral contrast. IV 100mL Isovue-300 was administered. Sagittal and coronal images were reconstructed. Individualized dose optimization techniques were used for this CT. COMPARISON: None. FINDINGS: The visualized lung bases are unremarkable. The visualized portions of the heart are within normal limits. Normal liver. Normal gallbladder and extrahepatic biliary system. Normal spleen. Normal pancreas. Normal bilateral adrenal glands. Normal right kidney. Normal left kidney. Normal visualized stomach. Normal small intestine. Normal colon. The appendix is visualized and appears normal. Normal abdominal aorta. Normal inferior vena cava. Normal retroperitoneum. Normal urinary bladder. Normal visualized uterus. Normal abdominal wall. Normal osseous structures. CT/Abdomen/Pelvis W IV Cont ONLY IMPRESSION: Normal enhanced CT of the abdomen and pelvis. Electronically Signed: Jeferson Garcia DO at 0:21 EDT ,
--- NOTE | 2021-12-23 22:35 | ED.VIS.GI ---
HPI HPI - GI History of Present Illness Chief Complaint: Abd Pain Narrative Narrative: Patient was concerned with right-sided abdominal pain that she has had for the last month. She states she sees the geospatial engineer, Dr. Tracy. She is scheduled for scope in January, approximately 1 month from now. She has had problems with pain in her right side previously. She states it feels like something is being smashed in her abdomen. When she was holding her daughter and she put her knee against her abdomen, she had sharp pain. She states the pain ranges from dull and achy to sharp and stabbing radiating from her mid epigastrium to the right side. She has been nauseated 3-4 times throughout the last 2 weeks. She has also been having diarrhea that is nonbloody. Her last bowel movement was small and somewhat mucousy. She denies any fevers or chills. No dysuria or hematuria. She states that she talked to Dr. Tracy's office 1 to 2 weeks ago. She needs to have endoscopy performed prior to them doing an MRI of her abdomen. 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 She presents because of the continuing abdominal pain that has been worsening mainly on the right side. At times it is epigastric, other times its periumbilical. [facility] Medical History Abdominal pain Acute bronchitis, unspecified Acute sinusitis, unspecified ADHD (attention deficit hyperactivity disorder), combined type Back problem Bone fracture Bronchitis Cervical lymphadenopathy Cervical radiculopathy Chronic back pain Chronic low back pain Chronic RUQ pain Ectopic cardiac beats Essential hypertension NICOLÁS (generalized anxiety disorder) Almaz's thyroiditis Heartburn History of acne History of blood transfusion History of gestational diabetes Hypocalcemia Left-sided low back pain with left-sided sciatica Melanoma Migraine without aura and with status migrainosus, not intractable Morbid obesity MARCELINO (nonalcoholic steatohepatitis) Numbness and tingling of both upper extremities Numbness of both lower extremities Palpitations Post herpetic neuralgia Right femoral fracture RUQ abdominal pain Thyroid disease Tinnitus Tobacco abuse Type 2 diabetes mellitus Vertigo Home Medications inhalational spacing device (Aerochamber MV spacer) #1 ea 02/03/21 [Rx Last Taken Unknown] nebulizers (Aeroneb Go Nebulizer) #1 ea 05/25/21 [Rx Last Taken Unknown] oxycodone-acetaminophen 5 mg-325 mg tablet 1 tab PO BID 06/03/21 [History Last Taken Unknown] hydroxyzine pamoate 50 mg capsule 50 mg PO TID PRN anxiety #20 caps 06/28/21 [Rx Last Taken Unknown] ursodiol 300 mg capsule 300 mg PO BID #60 caps 07/07/21 [Rx Last Taken Unknown] vitamin E mixed 400 unit capsule 800 unit PO .qd #60 caps 07/07/21 [Rx Last Taken Unknown] meclizine 25 mg tablet 25 mg PO BID PRN dizziness #30 tabs 08/11/21 [Rx Last Taken Unknown] ketoprofen 75 mg capsule 75 mg PO Q6H PRN Migraine Symptoms #100 caps 10/15/21 [Rx Last Taken Unknown] Bilateral wrist splints for carpal tunnel syndrome #2 ea 11/18/21 [Rx Last Taken Unknown] cetirizine 10 mg tablet (Zyrtec) 10 mg PO BID PRN 11/18/21 [History Last Taken Unknown] clobetasol 0.05 % topical cream 1 applic topical BID 11/18/21 [History Last Taken Unknown] cholecalciferol (vitamin D3) 1,250 mcg (50,000 unit) capsule 1,250 mcg PO QWEEK #4 caps 11/19/21 [Rx Last Taken Unknown] amlodipine 5 mg tablet 5 mg PO DAILY #90 tabs 12/07/21 [Rx Last Taken Unknown] prochlorperazine maleate 10 mg tablet (Compazine) 10 mg PO BID PRN Migraine Symptoms #30 tabs 12/07/21 [Rx Last Taken Unknown] levothyroxine 137 mcg tablet 137 mcg PO DAILY #60 tabs 12/08/21 [Rx Last Taken Unknown] Allergy/AdvReac Type Severity Reaction Status Date / Time promethazine [From Phenergan] Allergy Unknown Unknown Verified 12/23/21 22:21 latex Allergy Itching Verified 12/23/21 22:21 naproxen Allergy Unknown Verified 12/23/21 22:21 Penicillins [PCN] Allergy Rash Verified 12/23/21 22:21 escitalopram [From Lexapro] AdvReac Intermediate Lightheaded Verified 12/23/21 22:21 sertraline [From Zoloft] AdvReac Intermediate Dizzy & Verified 12/23/21 22:21 Headache dicyclomine [From Bentyl] AdvReac Unknown Unknown Verified 12/23/21 22:21 ondansetron HCl AdvReac Unknown Migraine Verified 12/23/21 22:21 [From Zofran (as hydrochloride)] hydrocodone [From Vicodin] AdvReac Other Verified 12/23/21 22:21 ketorolac [From Toradol] AdvReac Other Verified 12/23/21 22:21 Family History Grandmother Diabetes Other Family history of skin cancer High cholesterol Hypertension Surgical History History of surgery on arm History of thyroidectomy Social History Smoking Status: Current every day smoker tobacco type: cigarettes Tobacco: How many years used: 13 Electronic Cigarette Use: not used second hand exposure: No alcohol intake: current alcohol intake frequency: holidays/special occasions only substance use type: does not use caffeine: Yes what type of physical activity do you participate in: none seatbelt use: always do you feel safe at home: Yes additional social history: emmy HAMILTON Narrative Constitutional: No fever, no chills. HEENT: No sore throat. No neck pain. No loss of vision. No rhinorrhea. Cardiovascular: No chest pain. No palpitations. No pedal edema. Respiratory: No cough, no shortness of breath. Abdominal: Right-sided abdominal pain. At times dull and achy, other times sharp and stabbing. Can be periumbilical or epigastric radiating to right side. Worse with pressure on her abdomen. Positive nausea. No vomiting. Diarrhea/loose stools. Genitourinary: No dysuria. No hematuria. Musculoskeletal: No myalgias. No arthralgias. Neurologic: No headaches. No dizziness. No lightheadedness. Skin: No rash. No change in color. Psychiatric: No depression. No anxiety. EXAM Physical Exam Narrative Exam Narrative: Afebrile. Vital signs noted. HEENT: Normocephalic. Atraumatic. PERRL, EOMI. Neck soft and supple. No point tenderness or step off. Cardiovascular: Regular rate and rhythm. No murmurs, rubs, or gallops appreciated. Respiratory: No tachypnea. Lungs clear to auscultation bilaterally. Gastrointestinal: Abdomen soft, mild tenderness right flank, with normoactive bowel sounds. No rebound or guarding. Neurological: Awake. Alert. Nonfocal, nonlateralizing. Skin: No rash. Normal color. No pallor. Musculoskeletal: No pedal edema. Full range of motion extremities. Const Vital Signs: 12/23/21 22:19 Temperature 98.1 F Temperature Source Temporal Pulse Rate 89 Respiratory Rate 16 Blood Pressure 139/97 H Blood Pressure Mean 111 Pulse Ox 98 Oxygen Delivery Method Room Air MDM MDM MDM Narrative Medical decision making narrative: Comprehensive work-up was pursued. I will obtain CBC, CMP, and lipase to evaluate her gallbladder. I will also obtain a test and a UA. I reviewed her prior records. She did have imaging 4 months ago. She was having the same's right-sided flank pain. CBC is normal with a normal white count of 6.1. Hemoglobin normal at 13.7, platelet count normal at 184. CMP is grossly unremarkable except for glucose of 111 with a normal anion gap of 5. LFTs show AST of 11 and ALT of 19. Urinalysis shows no evidence of infection with 0-[address] with IV contrast is read as normal, no evidence of hepatosplenomegaly currently. No obstruction. At this point in time, I feel she can be discharged safely home with follow-up to her geospatial engineer. Return instructions were reviewed. Disposition is discharged home in stable condition. Lab Data Attestation: I reviewed the patient's lab results. Labs: Laboratory Results - last 24 hr 12/23/21 12/23/21 12/23/21 22:25 22:45 22:45 WBC 6.1 RBC 4.87 Hgb 13.7 Hct 42.6 MCV 87.5 MCH 28.1 MCHC 32.2 RDW Std Deviation 42.2 RDW Coeff of Mikel 13.3 Plt Count 184 MPV 11.1 Immature Gran % (Auto) 0.300 Neut % (Auto) 49.1 Lymph % (Auto) 36.1 Ellis % (Auto) 9.2 Eos % (Auto) 4.8 Baso % (Auto) 0.5 Absolute Neuts (auto) 3.0 Absolute Lymphs (auto) 2.19 Nucleated RBC % 0 Sodium 138 Potassium 3.5 Chloride 106 Carbon Dioxide 27.0 Anion Gap 5 BUN 10 Creatinine 0.84 Estim Creat Clear Calc 88.34 Est GFR (MDRD) Af Amer 100 Est GFR (MDRD) Non-Af 83 BUN/Creatinine Ratio 11.9 Glucose 111 H Calcium 9.2 Total Bilirubin 0.30 AST 11 L ALT 19 Alkaline Phosphatase 54 Total Protein 7.5 Albumin 3.9 Globulin 3.6 Albumin/Globulin Ratio 1.1 Lipase 98 Serum , Qual Urine Color Yellow Urine Clarity Clear Urine pH 6.0 Ur Specific Douglass 1.020 Urine Protein Negative Urine Glucose (UA) Normal Urine Ketones Negative Urine Occult Blood Negative Urine Nitrite Negative Urine Bilirubin Negative Urine Urobilinogen Normal Ur Leukocyte Esterase Negative Urine RBC 0-5 SEEN Urine WBC 0-5 SEEN Ur Squamous Epith Cells 0-5 SEEN Urine Bacteria 1+ Urine Mucus 0 SEEN 12/23/21 22:45 WBC RBC Hgb Hct MCV MCH MCHC RDW Std Deviation RDW Coeff of Mikel Plt Count MPV Immature Gran % (Auto) Neut % (Auto) Lymph % (Auto) Ellis % (Auto) Eos % (Auto) Baso % (Auto) Absolute Neuts (auto) Absolute Lymphs (auto) Nucleated RBC % Sodium Potassium Chloride Carbon Dioxide Anion Gap BUN Creatinine Estim Creat Clear Calc Est GFR (MDRD) Af Amer Est GFR (MDRD) Non-Af BUN/Creatinine Ratio Glucose Calcium Total Bilirubin AST ALT Alkaline Phosphatase Total Protein Albumin Globulin Albumin/Globulin Ratio Lipase Serum , Qual NEGATIVE Urine Color Urine Clarity Urine pH Ur Specific Douglass Urine Protein Urine Glucose (UA) Urine Ketones Urine Occult Blood Urine Nitrite Urine Bilirubin Urine Urobilinogen Ur Leukocyte Esterase Urine RBC Urine WBC Ur Squamous Epith Cells Urine Bacteria Urine Mucus Radiography Diagnostic Testing: Clinical Impression(s) from Imaging Studies Abdomen/Pelvis CT 12/23/21 22:34 IMPRESSION: Normal enhanced CT of the abdomen and pelvis. Electronically Signed: Jeferson Garcia DO at 0:21 EDT , Discharge Plan Triage Chief Complaint: Abd Pain ED Provider: Denver Pena Dx/Rx/DC Orders Clinical Impression: Abdominal pain, Right flank pain Instructions: ED Abdominal Pain Unkn Cause Fem Prescriptions: No Action oxycodone-acetaminophen 5-325 mg tablet 1 tab PO BID ketoprofen 75 mg capsule 75 mg PO Q6H PRN (Reason: Migraine Symptoms) Qty: 100 0RF Rx Instructions: 1 cap PO at on set of headache max of 3 in 24 hours, max 20 per month hydroxyzine pamoate 50 mg capsule 50 mg PO TID PRN (Reason: anxiety) Qty: 20 0RF meclizine 25 mg tablet 25 mg PO BID PRN (Reason: dizziness) Qty: 30 1RF clobetasol 0.05 % cream 1 applic topical BID cetirizine [Zyrtec] 10 mg tablet 10 mg PO BID PRN (DME) Bilateral wrist splints for carpal tunnel syndrome See Rx Instructions .Route .MEDSUPPLY Qty: 2 0RF Rx Instructions: As directed cholecalciferol (vitamin D3) 1,250 mcg (50,000 unit) capsule 1,250 mcg PO QWEEK Qty: 4 4RF (DME) Aerochamber MV Spacer See Rx Instructions .ROUTE .MEDSUPPLY Qty: 1 0RF Rx Instructions: As directed ([facility] [place]) Aeroneb Go Nebulizer Misc See Rx Instructions .ROUTE .MEDSUPPLY Qty: 1 0RF Rx Instructions: As directed vitamin E mixed 400 unit capsule 800 unit PO .qd Qty: 60 5RF ursodiol 300 mg capsule 300 mg PO BID Qty: 60 5RF amlodipine 5 mg tablet 5 mg PO DAILY Qty: 90 1RF prochlorperazine maleate [Compazine] 10 mg tablet 10 mg PO BID PRN (Reason: Migraine Symptoms) Qty: 30 1RF levothyroxine 137 mcg tablet 137 mcg PO DAILY Qty: 60 0RF Primary Care Provider: Jose Alejandro London Referrals: Jose Alejandro London MD [Primary Care Provider] - As Needed Friend,DO Ralph [Med Staff - Active Staff] - As soon as possible Disposition Disposition: Home, Self Care
[2021-12-23] MEDS: 0.9% Normal Saline 1,000 ML 1000 ML IV (22:46)
[2021-12-23 22:53] LABS: Mucous, Urine 0 SEEN /hpf (<or=2+)
[2021-12-23 22:54] LABS: Absolute Lymphocyte Count 2.19 X10^3/uL (0.83-4.51); Basophil# 0.03 X10^3/uL; Basophil% 0.5 % (0-1); Eosinophil# 0.29 X10^3/uL; Eosinophils% 4.8 % (0-5); Hematocrit 42.6 % (37-47); Hemoglobin 13.7 g/dL (12.0-15.0); Lymphocyte # 2.19 X10^3/ul (0.83-4.51); Lymphocyte % 36.1 % (19-41); Mean Corp Hgb Conc 32.2 g/dL (32-36); Mean Corpuscular Hgb 28.1 pg (27.0-32.0); Mean Corpuscular Volume 87.5 fL (81-99); Mean Platelet Vol. 11.1 fl (6.2-12.0); Monocyte# 0.56 X10^3/uL; Monocyte% 9.2 % (0-10); NRBC Flagged by Analyzer 0 % (0-5); Neutrophil # 2.98 X10^3/uL (2.7-7.7); Neutrophil % 49.1 % (47-70); Platelet Count 184 K/mm3 (150-450); RBC Distribution Width CV 13.3 % (11.6-14.6); RBC Distribution Width SD 42.2 fl (35.1-43.9); Red Blood Count 4.87 M/mm3 (4.2-5.4); White Blood Count 6.1 K/mm3 (4.4-11.0)
[2021-12-23 23:04] LABS: Internal QC Validated? YES +Cl - CLEAR BKGD; Pregnancy, Serum, hCG Quali. NEGATIVE Negative
[2021-12-23 23:05] LABS: Color, Urine Yellow (Yellow); Glucose, Dipstick Normal (Normal); Ketone-Dipstick Negative (Negative); Leukocyte Esterase-Dipstick Negative /ul (Negative); Nitrite-Dipstick Negative (Negative); Occult Blood-Urine Negative /ul (Negative); Protein-Dipstick Negative (Negative); Urine Bilirubin Dipstick Negative (Negative); Urine Clarity Clear (Clear); Urine Urobilinogen Normal (Normal)
[2021-12-23 23:10] LABS: ALB/GLOB Ratio 1.1 RATIO (0.9-2.4); AST(SGOT) 11 U/L (15-37); Alanine Aminotransfer ALT/SGPT 19 U/L (13-56); Albumin, Serum 3.9 g/dL (3.2-5.0); Alkaline Phosphatase 54 U/L (45-117); BUN 10 mg/dL (7-18); BUN/Creat Ratio 11.9 RATIO (10-20); Calcium,Total 9.2 mg/dL (8.5-10.1); Chloride 106 mmol/L (98-107); Creatinine, Serum 0.84 mg/dL (0.55-1.02); EST Glomerular Filtration Rate 83 mL/min (>60); Est Glom Filt Rate - Afr Amer 100 mL/min (>60); Estimated Creatinine Clearance 88.34 ml/min; Globulin 3.6 g/dL (2.2-4.2); Glucose 111 mg/dL (74-106); Lipase 98 U/L (73-393); Potassium 3.5 mmol/L (3.5-5.1); Protein, Total 7.5 g/dL (6.4-8.2); Sodium Level 138 mmol/L (136-145)
[2021-12-23 23:11] LABS: Anion Gap 5 (5-15)
[2021-12-23 23:11] LABS: Bacteria 1+ /hpf (None Seen); Squamous Epithelial Cells - UA 0-5 SEEN /hpf (5-10)
[2021-12-23 23:12] LABS: Red Blood Cells-Urine 0-5 SEEN /hpf (0-5); White Blood Cells 0-5 SEEN /hpf (0-5)
[2021-12-24 00:35] VITALS: PULSE 89; RESP 16; O2SAT 99
== END 2021-12-24 00:37 | disposition home or self-care (01) ==
PROVIDERS: Emergency Provider Emergency Medicine; PCP Internal Medicine; Visit Provider Emergency Medicine
DX: R10.13 Epigastric pain (principal); E66.01 Morbid (severe) obesity due to excess calories; E11.9 Type 2 diabetes mellitus without complications; R10.33 Periumbilical pain; K75.81 Nonalcoholic steatohepatitis (NASH); R11.0 Nausea; R19.7 Diarrhea, unspecified; I10 Essential (primary) hypertension; F41.1 Generalized anxiety disorder; M54.9 Dorsalgia, unspecified; G89.29 Other chronic pain; F17.210 Nicotine dependence, cigarettes, uncomplicated
CPT/HCPCS: 74177; 80053; 81001; 83690; 84703; 85025; 96360; 96361; 99282; J7030; Q9967; A4216

== ENCOUNTER → 2022-01-03 | Outpatient (CLI) | payer BC, MEDICAID, SELFPAY ==
[2022-01-07 11:31] LABS: Pancreatic Elastase, Fecal > 500 (>200)
[2022-01-09 15:25] LABS: Fats, Neutral Normal (.); Fats, Total Normal (.)
== END | disposition home or self-care (01) ==
LOC: LAB 11:52
PROVIDERS: PCP Internal Medicine; Referring Provider Nurse Practitioner Adult Health; Visit Provider Nurse Practitioner Adult Health
DX: R10.11 Right upper quadrant pain (principal); G89.29 Other chronic pain
CPT/HCPCS: 82653; 82705

== ENCOUNTER → 2022-01-11 | Outpatient (CLI) | payer BC, MEDICAID, SELFPAY ==
--- NOTE | 2022-01-11 09:16 | US_ITS ---
STUDY: ABDOMINAL ULTRASOUND - ELASTOGRAPHY REASON FOR VISIT: Female, 36 years old. MARCELINO. TECHNIQUE: Liver stiffness measurements were obtained on a PISTIS Consult RS 85 ultrasound machine using a CA 1-7 probe following the SRU guidelines. 3 measurements were obtained using a 2-D-SWE method. The IQR/M was 23 % suggesting a quality data set. TECHNICAL QUALITY: Adequate. COMPARISON: Comparison is made with prior study done earlier today. FINDINGS: Liver: Fatty infiltration of the liver. Median liver stiffness measured 7 kPa. US/Elastography Parenchyma/Organ IMPRESSION: Liver stiffness measures 7 kPa compatible with F2-F3 (Mild to moderate liver fibrosis) Metavir score. Electronically Signed: Christiano Eduardo MD at 11:09 EDT ,
--- NOTE | 2022-01-11 09:16 | US_ITS ---
STUDY: ABDOMINAL ULTRASOUND - RIGHT UPPER QUADRANT REASON FOR VISIT: Female, 36 years old MARCELINO TECHNIQUE: Ultrasound evaluation of the right upper quadrant was performed with real-time and static gonzalez-scale imaging. TECHNICAL QUALITY: Adequate. COMPARISON: Comparison is made with prior study dated 06/11/2021. FINDINGS: Liver: The liver measures 15.2 cm. There is increased echogenicity consistent with fatty infiltration. The bile ducts are within normal limits. There is hepatic color flow. The direction of portal flow is hepatopetal. There is no demonstrated mass lesion. Gallbladder: Normal distended gallbladder. The gallbladder wall measures 2.0 mm. There is a negative sonographic Johnston''s sign. There is no pericholecystic fluid. There are no gallstones. Common Bile Duct (C.B.D.): The common bile duct measures 3.9 mm. Pancreas: Normal size of the head, body of the pancreas. The tail portion is obscured due to overlying bowel gas. There is normal echogenicity of the pancreas. There is no demonstrated pancreatic mass or cyst. Right Kidney: Normal size of the right kidney. The right kidney measures 13 cm x 5.9 cm x 5.5 cm. Normal renal cortex. The right cortex measures 1.5 cm. There is no demonstrated renal mass or cyst. There is no right hydronephrosis. US/Abdomen Limited IMPRESSION: Fatty infiltration of the liver. Electronically Signed: Christiano Eduardo MD at 11:08 EDT ,
== END | disposition home or self-care (01) ==
LOC: US 09:14
PROVIDERS: PCP Internal Medicine; Referring Provider Nurse Practitioner Adult Health; Visit Provider Nurse Practitioner Adult Health
DX: K75.81 Nonalcoholic steatohepatitis (NASH) (principal)
CPT/HCPCS: 76705; 76981

== ENCOUNTER → 2022-01-13 | Outpatient (CLI) | payer BC, MEDICAID, SELFPAY ==
[2022-01-13 10:01] LABS: Erythrocyte Sedimentation Rate 6 mm/hr (0-30)
[2022-01-13 10:04] LABS: Prothrombin Time (Protime)PT. 12.6 SECONDS (11.7-14.9)
[2022-01-13 10:23] LABS: CRP < 2.90 mg/L (0.0-3.0); Cholesterol 220 mg/dL (200); Ferritin 19 ng/mL (8-252); High Density Lipoprotein 42 mg/dL; LDH 164 U/L (84-246); Triglycerides 175 mg/dL; Very Low Density Lipoprotein 35 mg/dL (5-40)
[2022-01-13 10:29] LABS: Thyroid Stim Hormone (TSH) 0.59 uIU/mL (0.358-3.74)
[2022-01-13 10:36] LABS: Hemoglobin A1c 5.4 % (3.8-5.6)
[2022-01-13 10:46] LABS: HIV - WCH Non-Reactive (Nonreactive)
[2022-01-14 15:08] LABS: Anti-Centromere B Ab <0.2 AI (0.0-0.9); Anti-Chromatin <0.2 AI (0.0-0.9); Anti-Jo <0.2 AI (0.0-0.9); Anti-Scleroderma-70 AB <0.2 AI (0.0-0.9); RNP Ab 0.3 AI (0.0-0.9); SJOGREN'S Anti-SS-A test < 0.2 AI (0.0-0.9); SJOGREN'S Anti-SS-B test < 0.2 AI (0.0-0.9); Smith Ab <0.2 AI (0.0-0.9)
[2022-01-14 16:51] LABS: Anti-Mitochondrial AB <20.0 Units (0.0-20.0); Anti-dsDNA Ab 1 IU/mL (0-9)
[2022-01-16 00:06] LABS: Angiotensin Convert Enzyme 24 U/L (14-82); Ceruloplasmin 22.7 mg/dL (19.0-39.0); Cytoplasmic Ab (C-ANCA) <1:20 titer (Neg:<1:20); HEPATITIS B SURFACE AG Negative (Negative); Hep C Antibodies <0.1 s/co ratio (0.0-0.9); Hepatitis A IgM Antibody Negative (Negative); Hepatitis B Core AB IgM Negative (Negative)
[2022-01-16 08:57] LABS: AFP, Tumor Marker 2.5 ng/mL (0.0-6.4); Anti-Smooth Muscle ABS 5 Units (0-19); Copper, Serum or Plasma 109 ug/dL (80-158); Haptoglobin 142 mg/dL (33-278); Perinuclear Ab (P-ANCA) <1:20 titer (Neg:<1:20)
== END | disposition home or self-care (01) ==
LOC: LAB 09:04
PROVIDERS: Physician Assistant; PCP Internal Medicine; Referring Provider Nurse Practitioner Adult Health; Visit Provider Nurse Practitioner Adult Health
DX: K76.0 Fatty (change of) liver, not elsewhere classified (principal); E03.9 Hypothyroidism, unspecified
CPT/HCPCS: 36415; 80061; 80074; 82105; 82140; 82164; 82390; 82525; 82728; 83010; 83036; 83516; 83615; 84443; 85610; 85652; 86140; 86225; 86235; 86256; 86703

== ENCOUNTER → 2022-02-10 | Outpatient (CLI) | payer BC, MEDICAID, SELFPAY ==
--- NOTE | 2022-02-10 16:01 | US_ITS ---
INDICATION: Left sided neck swelling EXAMINATION: Ultrasound US Head/Neck Soft Tissue TECHNIQUE: Donovan scale and color doppler imaging was performed of the thyroid bed and the neck area of swelling was performed. COMPARISON: None. FINDINGS: No evidence of residual thyroid tissue in the thyroid bed. No evidence of masses or abnormal architecture of the thyroid bed. At the region of interest/palpable lump in the left neck bladder is an ovoid hypoechoic area visualized with central hyperechoic echogenicity visualized consistent with a lymph node, a second BENIGN-appearing lymph nodes visualized dislocation, these lymph nodes measure 1.0 x 0.7 x 0.5 cm and 1.0 x 0.9 x 0.5 cm. US/Head/Neck Soft Tissue IMPRESSION: 2 benign-appearing lymph nodes visualized in the left neck. No evidence of masses in the thyroid bed. Electronically Signed: Calvin Marrero MD at 13:07 EDT ,
== END | disposition home or self-care (01) ==
LOC: US 16:00
PROVIDERS: PCP Internal Medicine; Referring Provider Internal Medicine; Visit Provider Internal Medicine
DX: R22.1 Localized swelling, mass and lump, neck (principal)
CPT/HCPCS: 76536

== ENCOUNTER 2022-02-15 11:30 | Emergency (ER) | payer BC, MEDICAID, SELFPAY ==
[2022-02-15 11:31] VITALS: BP 149/85; PULSE 96; RESP 18; TEMP 36.7; O2SAT 100; BMI 37.6
--- NOTE | 2022-02-15 12:14 | CT_ITS ---
STUDY: CT ABDOMEN AND PELVIS WITHOUT CONTRAST REASON FOR EXAM: Female, 36 years old. Kidney Stone. Flank pain. RADIATION DOSAGE (If Supplied By Facility): CTDIvol = ( 17.43 ) mGy, DLP = ( 914.39 ) mGycm TECHNIQUE: Transaxial images were obtained from the dome of the diaphragm to the symphysis pubis without oral contrast, and without intravenous contrast. Sagittal and coronal images were reconstructed. Individualized dose optimization techniques were used for this CT. COMPARISON: Comparison is made with prior study dated 12/23/2021. FINDINGS: Stable mild degree of increased linear markings in the peripheral lateral aspect of the right lower lobe suggestive of scarring. The visualized portions of the heart are within normal limits. Normal liver. The gallbladder is contracted. Borderline splenomegaly. Normal pancreas. Normal bilateral adrenal glands. Normal right kidney. Normal left kidney. There is a small hiatal hernia. Normal small intestine. There are multiple colonic diverticula consistent with diverticulosis. The appendix is visualized and appears normal. Normal abdominal aorta. Normal inferior vena cava. There is borderline retroperitoneal lymphadenopathy with enlarged nodes no greater than 10mm in the short axis diameter. Normal urinary bladder. Calcified phleboliths are seen in the pelvis. There is a small umbilical hernia containing fat. The patient is status post ORIF of a right intertrochanteric fracture. CT/Abdomen/Pelvis without Cont IMPRESSION: No acute abnormality is seen. Electronically Signed: Christiano Eduardo MD at 13:04 EDT ,
[2022-02-15] MEDS: oxyCODONE 5 MG Tablet PO (12:20)
[2022-02-15 12:25] LABS: Mucous, Urine 0 SEEN /hpf (<or=2+); Red Blood Cells-Urine 0 SEEN /hpf (0-5)
[2022-02-15 12:28] LABS: Color, Urine Yellow (Yellow); Glucose, Dipstick Normal (Normal); Ketone-Dipstick Negative (Negative); Leukocyte Esterase-Dipstick 25 /ul (Negative); Nitrite-Dipstick Negative (Negative); Occult Blood-Urine Negative /ul (Negative); Protein-Dipstick Negative (Negative); Specific Gravity, Urine 1.015 (1.002-1.030); Urine Bilirubin Dipstick Negative (Negative); Urine Clarity Sl. Cloudy (Clear); Urine Urobilinogen Normal (Normal)
--- NOTE | 2022-02-15 12:32 | EX.ED.DYSGE1 ---
HPI History of Present Illness Chief Complaint: Flank Pain Informant: patient Narrative Narrative: Patient presents for evaluation worsening left flank pain since yesterday. 3 days ago noted pain in her left groin. Denies blood in urine denies dysuria notes change in odor of her urine. She is followed by OB Dr. Jeremias Lal for planned hysterectomy next month. Saw her this morning reported symptoms had blood work drawn here. With her increasing pain she came to emergency department for evaluation. No history of kidney stones. History of hypertension. History of abnormal vaginal bleeding therefore the planned hysterectomy. Multiple allergies including NSAIDs however she has tolerated Percocet in the past. Reviewing her labs normal white count normal creatinine. Urine was not resulted in the system. [facility] Medical History Abdominal pain Acute bronchitis, unspecified Acute sinusitis, unspecified ADHD (attention deficit hyperactivity disorder), combined type Back pain Back problem Bone fracture Bronchitis Cervical lymphadenopathy Cervical radiculopathy Chronic back pain Chronic low back pain Chronic RUQ pain Ectopic cardiac beats Essential hypertension NICOLÁS (generalized anxiety disorder) Almaz's thyroiditis Heartburn History of acne History of blood transfusion History of gestational diabetes Hypocalcemia Left-sided low back pain with left-sided sciatica Localized swelling, mass and lump, neck Melanoma Migraine without aura and with status migrainosus, not intractable Morbid obesity MARCELINO (nonalcoholic steatohepatitis) Numbness and tingling of both upper extremities Numbness of both lower extremities Palpitations Post herpetic neuralgia Right femoral fracture RUQ abdominal pain Thyroid disease Tinnitus Tobacco abuse Type 2 diabetes mellitus Vertigo Home Medications inhalational spacing device (Aerochamber MV spacer) #1 ea 02/03/21 [Rx Last Taken Unknown] nebulizers (Aeroneb Go Nebulizer) #1 ea 05/25/21 [Rx Last Taken Unknown] vitamin E mixed 400 unit capsule 800 unit PO .qd #60 caps 07/07/21 [Rx Last Taken Unknown] meclizine 25 mg tablet 25 mg PO BID PRN dizziness #30 tabs 08/11/21 [Rx Last Taken Unknown] Bilateral wrist splints for carpal tunnel syndrome #2 ea 11/18/21 [Rx Last Taken Unknown] cetirizine 10 mg tablet (Zyrtec) 10 mg PO BID PRN 11/18/21 [History Last Taken Unknown] amlodipine 5 mg tablet 5 mg PO DAILY #90 tabs 02/11/22 [Rx Last Taken Unknown] hydroxyzine pamoate 50 mg capsule 50 mg PO TID PRN anxiety #20 caps 02/11/22 [Rx Last Taken Unknown] ketoprofen 75 mg capsule 75 mg PO Q6H PRN Migraine Symptoms #100 caps 02/11/22 [Rx Last Taken Unknown] levothyroxine 137 mcg tablet 137 mcg PO DAILY #90 tabs 02/11/22 [Rx Last Taken Unknown] prochlorperazine maleate 10 mg tablet (Compazine) 10 mg PO BID PRN Migraine Symptoms #30 tabs 02/11/22 [Rx Last Taken Unknown] ursodiol 300 mg capsule 300 mg PO BID #180 caps 02/11/22 [Rx Last Taken Unknown] cephalexin 500 mg capsule 500 mg PO TID #20 caps 02/15/22 [Rx Last Taken Unknown] oxycodone-acetaminophen 5 mg-325 mg tablet (Percocet) 1 tab PO Q6H PRN pain 3 days #12 tabs 02/15/22 [Rx Last Taken Unknown] Allergy/AdvReac Type Severity Reaction Status Date / Time promethazine [From Phenergan] Allergy Unknown Unknown Verified 02/15/22 11:31 latex Allergy Itching Verified 02/15/22 11:31 naproxen Allergy Unknown Verified 02/15/22 11:31 Penicillins [PCN] Allergy Rash Verified 02/15/22 11:31 escitalopram [From Lexapro] AdvReac Intermediate Lightheaded Verified 02/15/22 11:31 sertraline [From Zoloft] AdvReac Intermediate Dizzy & Verified 02/15/22 11:31 Headache dicyclomine [From Bentyl] AdvReac Unknown Unknown Verified 02/15/22 11:31 ondansetron HCl AdvReac Unknown Migraine Verified 02/15/22 11:31 [From Zofran (as hydrochloride)] hydrocodone [From Vicodin] AdvReac Other Verified 02/15/22 11:31 ketorolac [From Toradol] AdvReac Other Verified 02/15/22 11:31 Family History Grandmother Diabetes Other Family history of skin cancer High cholesterol Hypertension Surgical History History of surgery on arm History of thyroidectomy Social History Smoking Status: Current every day smoker tobacco type: cigarettes Tobacco: How many years used: 13 Electronic Cigarette Use: not used second hand exposure: No alcohol intake: current alcohol intake frequency: holidays/special occasions only substance use type: does not use caffeine: Yes what type of physical activity do you participate in: none seatbelt use: always do you feel safe at home: Yes additional social history: emmy [employer] ED Constitutional Constitutional ED: Denies chills, fever(s) or sweats Eyes Eyes: Denies change in vision ENT ENT ED: Denies dysphagia or sore throat Cardiovascular Cardiovascular: Denies chest pain, leg edema, palpitations or racing heartbeat Respiratory/Chest Respiratory/Chest: Denies cough, dyspnea or dyspnea on exertion Gastrointestinal Gastrointestinal: Denies abdominal pain, diarrhea, nausea or vomiting Genitourinary Genitourinary ED: Denies dysuria, hematuria or urinary frequency Musculoskeletal Musculoskeletal: Reports back pain; Denies extremity pain or neck pain Integumentary Denies rash or wounds Neurologic Neurologic: Denies headache(s), paresthesias or weakness EXAM Physical Exam Const Vital Signs: 02/15/22 11:31 Temperature 98.1 F Temperature Source Temporal Pulse Rate 96 Respiratory Rate 18 Blood Pressure 149/85 H Blood Pressure Mean 106 Pulse Ox 100 Oxygen Delivery Method Room Air Positive well nourished and well developed General Appearance ED: well developed and NAD HEENT Reports moist mucous membranes normocephalic and atraumatic Eyes PERRL, EOMs intact bilaterally and conjunctivae normal General Eye ED: Yes normal appearance of both eyes Neck no lymphadenopathy and supple General: Negative for tenderness Chest Wall Chest: Negative for tenderness Resp normal respiratory effort and normal air movement Effort and Inspection: symmetric chest movement; Negative for respiratory distress Cardio regular rate, regular rhythm and no murmurs Peripheral Pulses: pulses 2+ throughout GI normal to inspection, nondistended, normoactive bowel sounds and non-tender Palpation: Negative for guarding or rebound tenderness present Back/Spine no thoracic nor lumbar tenderness Back/Spine Narrative: Left CVA tenderness, no rash. Extremity normal to inspection General Extremety ED: Negative for edema or tenderness General Extremity: Negative for edema Neuro oriented x3 and no sensory deficits noted Sensorium / Orientation: awake and alert Skin no rashes or lesions noted and no wounds MDM MDM MDM Narrative Medical decision making narrative: Patient with labs from outpatient normal CBC hemoglobin and creatinine. There is no urine available therefore urine was checked noted leukocytes 1+ bacteria hCG negative. She is treated with Percocet, flank CT obtained negative for obstructive uropathy. Nonspecific retroperitoneal lymphadenopathy. Hiatal hernia. Umbilical hernia. With her left flank pain with slight UTI culture sent. However due to discomfort treated for complicated UTI. Keflex started 3 times a day for a week. Prescription for Percocet to use as needed. She will follow-up with her PCP. All questions were answered. Lab Data Labs: Laboratory Results - last 24 hr 02/15/22 11:44 Urine Color Yellow Urine Clarity Sl. Cloudy Urine pH 6.0 Ur Specific [place] 1.015 Urine Protein Negative Urine Glucose (UA) Normal Urine Ketones Negative Urine Occult Blood Negative Urine Nitrite Negative Urine Bilirubin Negative Urine Urobilinogen Normal Ur Leukocyte Esterase 25 H Urine RBC 0 SEEN Urine WBC 0-5 SEEN Ur Squamous Epith Cells 5-10 SEEN Urine Bacteria 1+ Urine Mucus 0 SEEN Urine Test Negative Radiography Diagnostic Testing: Clinical Impression(s) from Imaging Studies Abdomen/Pelvis CT 02/15/22 12:14 IMPRESSION: No acute abnormality is seen. Electronically Signed: Christiano Eduardo MD at 13:04 EDT Reading Location ID and State: [address] [place] [address] , Service support , Discharge Plan Triage Chief Complaint: Flank Pain ED Provider: Drake Guzman Dx/Rx/DC Orders Clinical Impression: Complicated urinary tract infection, Left flank pain, Hernia, umbilical, Hiatal hernia Instructions: Urinary Tract Infections in Women, ED Flank Pain, Uncertain Cause Prescriptions: New cephalexin [cephalexin] 500 mg capsule 500 mg PO TID Qty: 20 0RF oxycodone-acetaminophen [Percocet] 5-325 mg tablet 1 tab PO Q6H PRN (Reason: pain) 3 Days Qty: 12 0RF No Action meclizine 25 mg tablet 25 mg PO BID PRN (Reason: dizziness) Qty: 30 1RF cetirizine [Zyrtec] 10 mg tablet 10 mg PO BID PRN (DME) Bilateral wrist splints for carpal tunnel syndrome See Rx Instructions .Route .MEDSUPPLY Qty: 2 0RF Rx Instructions: As directed (DME) Aerochamber MV Spacer See Rx Instructions .ROUTE .MEDSUPPLY Qty: 1 0RF Rx Instructions: As directed (DME) Aeroneb Go Nebulizer Misc See Rx Instructions .ROUTE .MEDSUPPLY Qty: 1 0RF Rx Instructions: As directed vitamin E mixed 400 unit capsule 800 unit PO .qd Qty: 60 5RF amlodipine 5 mg tablet 5 mg PO DAILY Qty: 90 1RF hydroxyzine pamoate 50 mg capsule 50 mg PO TID PRN (Reason: anxiety) Qty: 20 0RF ketoprofen 75 mg capsule 75 mg PO Q6H PRN (Reason: Migraine Symptoms) Qty: 100 0RF Rx Instructions: 1 cap PO at on set of headache max of 3 in 24 hours, max 20 per month levothyroxine 137 mcg tablet 137 mcg PO DAILY Qty: 90 1RF prochlorperazine maleate [Compazine] 10 mg tablet 10 mg PO BID PRN (Reason: Migraine Symptoms) Qty: 30 1RF ursodiol 300 mg capsule 300 mg PO BID Qty: 180 1RF Primary Care Provider: Jose Alejandro London Referrals: Jose Alejandro London MD [Primary Care Provider] - 3-5 Days Activity Restrictions/Additional Instructions: CT scan negative for obstructive kidney stones. Small umbilical hernia. Nonspecific retroperitoneal lymphadenopathy. Normal appendix. Hiatal hernia noted. Urine slight infection culture pending. With flank pain we will treat for complicated UTI. Take antibiotic as prescribed. Pain medicine as needed. Follow-up with your doctor. Disposition Disposition: Home, Self Care Discharge Date/Time: 02/15/22 14:18
[2022-02-15 12:39] LABS: Bacteria 1+ /hpf (None Seen); Internal QC Validated? YES +Cl - CLEAR BKGD; Pregnancy, Urine Negative Negative; Squamous Epithelial Cells - UA 5-10 SEEN /hpf (5-10); White Blood Cells 0-5 SEEN /hpf (0-5)
[2022-02-15] MEDS: Cephalexin 250 MG Capsule 500 MG PO (14:15)
== END 2022-02-15 14:18 | disposition home or self-care (01) ==
PROVIDERS: Emergency Provider Emergency Medicine; PCP Internal Medicine; Visit Provider Emergency Medicine
DX: N39.0 Urinary tract infection, site not specified (principal); E11.9 Type 2 diabetes mellitus without complications; F17.210 Nicotine dependence, cigarettes, uncomplicated; K42.9 Umbilical hernia without obstruction or gangrene; I10 Essential (primary) hypertension; K44.9 Diaphragmatic hernia without obstruction or gangrene
CPT/HCPCS: 74176; 81001; 81025; 99283

== ENCOUNTER → 2022-02-15 | Outpatient (CLI) | payer BC, MEDICAID, SELFPAY ==
[2022-02-15 10:07] LABS: Absolute Lymphocyte Count 1.31 X10^3/uL (0.83-4.51); Absolute Neutrophil Count 2.7 X10^3/uL (2.0-7.7); Basophil# 0.03 X10^3/uL; Basophil% 0.6 % (0-1); Eosinophil# 0.17 X10^3/uL; Eosinophils% 3.6 % (0-5); Hematocrit 43.2 % (37-47); Hemoglobin 13.9 g/dL (12.0-15.0); Lymphocyte # 1.31 X10^3/ul (0.83-4.51); Lymphocyte % 28.1 % (19-41); Mean Corp Hgb Conc 32.2 g/dL (32-36); Mean Corpuscular Hgb 28.1 pg (27.0-32.0); Mean Corpuscular Volume 87.4 fL (81-99); Monocyte# 0.47 X10^3/uL; Monocyte% 10.1 % (0-10); NRBC Flagged by Analyzer 0 % (0-5); Neutrophil # 2.67 X10^3/uL (2.7-7.7); Neutrophil % 57.4 % (47-70); Platelet Count 175 K/mm3 (150-450); RBC Distribution Width CV 12.6 % (11.6-14.6); RBC Distribution Width SD 40.2 fl (35.1-43.9); Red Blood Count 4.94 M/mm3 (4.2-5.4); White Blood Count 4.7 K/mm3 (4.4-11.0)
[2022-02-15 10:39] LABS: Hemoglobin A1c 5.5 % (3.8-5.6)
[2022-02-15 10:46] LABS: ALB/GLOB Ratio 1.1 RATIO (0.9-2.4); AST(SGOT) 11 U/L (15-37); Alanine Aminotransfer ALT/SGPT 21 U/L (13-56); Albumin, Serum 3.8 g/dL (3.2-5.0); Alkaline Phosphatase 62 U/L (45-117); Anion Gap 3 (5-15); BUN 8 mg/dL (7-18); BUN/Creat Ratio 10.7 RATIO (10-20); Calcium,Total 9.1 mg/dL (8.5-10.1); Chloride 108 mmol/L (98-107); Creatinine, Serum 0.75 mg/dL (0.55-1.02); EST Glomerular Filtration Rate 94 mL/min (>60); Est Glom Filt Rate - Afr Amer 114 mL/min (>60); Globulin 3.5 g/dL (2.2-4.2); Glucose 101 mg/dL (74-106); Potassium 4.2 mmol/L (3.5-5.1); Protein, Total 7.3 g/dL (6.4-8.2); Sodium Level 140 mmol/L (136-145); Thyroid Stim Hormone (TSH) 0.62 uIU/mL (0.358-3.74)
== END | disposition home or self-care (01) ==
LOC: NM 02-17 09:28
PROVIDERS: Obstetrics & Gynecology; PCP Internal Medicine; Referring Provider Nurse Practitioner Adult Health; Visit Provider Nurse Practitioner Adult Health
DX: M54.9 Dorsalgia, unspecified (principal); M79.606 Pain in leg, unspecified; E06.3 Autoimmune thyroiditis; E88.81 Metabolic syndrome and other insulin resistance
CPT/HCPCS: 36415; 80053; 83036; 84443; 85025; 87086; 87088

== ENCOUNTER → 2022-02-23 | Outpatient (CLI) | payer BC, MEDICAID, SELFPAY ==
--- NOTE | 2022-02-23 13:29 | NEURO ---
NCS and/or EMG Patient Report Ordering Doctor: Earnest Haynes DATE OF SERVICE: 02/23/22 Lana presents for electrodiagnostic testing. She is requesting only her left arm be tested today and complains of weakness and numbness in the left arm. Electrodiagnostic findings: On nerve conduction study left median motor nerve demonstrates normal distal latency, amplitude and conduction velocity. Normal left ulnar motor response. Normal left median and ulnar F waves. Prolonged left median sensory latency at the wrist. Normal left palmar response. Normal left ulnar and radial sensory responses. On needle EMG, all muscles tested in the left upper limb showed no evidence of denervation with normal motor unit action potentials. Electrodiagnostic impression: This is an abnormal study in the left upper limb. 1. Electrodiagnostic findings suggestive of a mild left median sensory neuropathy. This is consistent with a mild left carpal tunnel syndrome 2. No electrodiagnostic evidence noted for cervical radiculopathy.
== END | disposition home or self-care (01) ==
LOC: PSN 12:28
PROVIDERS: PCP Internal Medicine; Referring Provider Psychiatry & Neurology Neurology; Visit Provider Psychiatry & Neurology Neurology
DX: G56.03 Carpal tunnel syndrome, bilateral upper limbs (principal); R20.0 Anesthesia of skin; R20.2 Paresthesia of skin
CPT/HCPCS: 95886; 95910

== ENCOUNTER 2022-03-04 13:26 | Emergency (ER) | payer BC, MEDICAID, SELFPAY ==
[2022-03-04 13:28] VITALS: BP 156/91; PULSE 91; RESP 14; TEMP 36.2; O2SAT 100; BMI 38.5
--- NOTE | 2022-03-04 13:53 | ED.VIS.BACK ---
HPI History of Present Illness Chief Complaint: Back Informant: patient Onset/Context/Timing Onset: Days (3) Context: Gradual Onset Timing: Continuous Quality: Sharp Location: Thoracic and Lumbar Worsened by: improves with Movement Relieved by: Nothing Associated Symptoms Associated Symptoms: Numbness, Tingling, Radiation to Right Leg and Radiation to Left Leg; Negative for Abdominal Pain, Dysuria, Unable to Ambulate, Unable to Transfer, Urinary Retention, Urinary Incontinence, Constipation or Fecal Incontinence Narrative Narrative: Patient presents with back pain that has been getting worse over the last 3 days. Patient states she was having lower back pain for the past 3 weeks. Patient was seen at the [facility] for this. Patient states she had x-rays which showed some degenerative changes. Patient states that now her pain is up into her thoracic area between her shoulder blades. Patient states it is worse with deep breathing and with certain movements. Patient states she feels short of breath at times. Patient states the pain radiates into her chest at times. Patient admits to some nausea but denies any vomiting. Patient admits to some neck pain. [facility] Medical History Abdominal pain Acute bronchitis, unspecified Acute sinusitis, unspecified ADHD (attention deficit hyperactivity disorder), combined type Arthritis Back pain Back pain Bronchitis Cancer Cardiology follow-up encounter Cervical lymphadenopathy Cervical radiculopathy Chronic back pain Chronic low back pain Chronic RUQ pain Easy bruising Ectopic cardiac beats Essential hypertension Fatty liver Fibromyalgia NICOLÁS (generalized anxiety disorder) Almaz's thyroiditis Heartburn History of acne History of echocardiogram History of gestational diabetes History of pain when walking History of stress test Hypertension Hypocalcemia Injury of head and neck Left-sided low back pain with left-sided sciatica Localized swelling, mass and lump, neck Melanoma Migraine without aura and with status migrainosus, not intractable Morbid obesity MARCELINO (nonalcoholic steatohepatitis) Numbness and tingling of both upper extremities Numbness of both lower extremities Palpitations Post herpetic neuralgia Restless legs Right femoral fracture RUQ abdominal pain Syncope Thyroid disease Tinnitus Tobacco abuse Type 2 diabetes mellitus Vertigo Home Medications inhalational spacing device (Aerochamber MV spacer) #1 ea 02/03/21 [Rx Last Taken Unknown] nebulizers (Aeroneb Go Nebulizer) #1 ea 05/25/21 [Rx Last Taken Unknown] vitamin E mixed 400 unit capsule 800 unit PO .qd #60 caps 07/07/21 [Rx Last Taken Unknown] meclizine 25 mg tablet 25 mg PO BID PRN dizziness #30 tabs 08/11/21 [Rx Last Taken Unknown] Bilateral wrist splints for carpal tunnel syndrome #2 ea 11/18/21 [Rx Last Taken Unknown] hydroxyzine pamoate 50 mg capsule 50 mg PO TID PRN anxiety #20 caps 02/11/22 [Rx Last Taken Unknown] ketoprofen 75 mg capsule 75 mg PO Q6H PRN Migraine Symptoms #100 caps 02/11/22 [Rx Last Taken Unknown] levothyroxine 137 mcg tablet 137 mcg PO DAILY #90 tabs 02/11/22 [Rx Last Taken Unknown] prochlorperazine maleate 10 mg tablet (Compazine) 10 mg PO BID PRN Migraine Symptoms #30 tabs 02/11/22 [Rx Last Taken Unknown] ursodiol 300 mg capsule 300 mg PO BID #180 caps 02/11/22 [Rx Last Taken Unknown] amlodipine 5 mg tablet 5 mg PO DAILY #90 tabs 02/23/22 [Rx Last Taken Unknown] pregabalin 25 mg capsule (Lyrica) 25 mg PO BID #60 caps 03/02/22 [Rx Last Taken Unknown] oxycodone-acetaminophen 5 mg-325 mg tablet 1 tab PO Q6H PRN PRN Pain 3 days #12 TABLETS 03/04/22 [Rx Last Taken Unknown] Allergy/AdvReac Type Severity Reaction Status Date / Time promethazine [From Phenergan] Allergy Unknown Unknown Verified 03/04/22 13:27 latex Allergy Itching Verified 03/04/22 13:27 naproxen Allergy Unknown Verified 03/04/22 13:27 Penicillins [PCN] Allergy Rash Verified 03/04/22 13:27 escitalopram [From Lexapro] AdvReac Intermediate Lightheaded Verified 03/04/22 13:27 sertraline [From Zoloft] AdvReac Intermediate Dizzy & Verified 03/04/22 13:27 Headache dicyclomine [From Bentyl] AdvReac Unknown Unknown Verified 03/04/22 13:27 ondansetron HCl AdvReac Unknown Migraine Verified 03/04/22 13:27 [From Zofran (as hydrochloride)] hydrocodone [From Vicodin] AdvReac Other Verified 03/04/22 13:27 ketorolac [From Toradol] AdvReac Other Verified 03/04/22 13:27 Family History Grandmother Diabetes Other Family history of skin cancer High cholesterol Hypertension Surgical History History of surgery on arm History of thyroidectomy Social History Smoking Status: Current every day smoker tobacco type: cigarettes Tobacco: How many years used: 13 Electronic Cigarette Use: not used second hand exposure: No alcohol intake: current alcohol intake frequency: holidays/special occasions only substance use type: does not use caffeine: Yes what type of physical activity do you participate in: none seatbelt use: always do you feel safe at home: Yes additional social history: emmy [place] ED Constitutional Constitutional ED: Denies chills or fever(s) Eyes Eyes: Denies blurry vision or change in vision ENT ENT ED: Denies rhinorrhea or sore throat Cardiovascular Cardiovascular: Reports chest pain; Denies palpitations Respiratory/Chest Respiratory/Chest: Reports dyspnea; Denies cough Gastrointestinal Gastrointestinal: Denies nausea or vomiting Genitourinary Genitourinary ED: Denies dysuria or hematuria Musculoskeletal Musculoskeletal: Reports back pain and neck pain Integumentary Denies abscess or rash Neurologic Neurologic: Denies headache(s) or weakness Allergic/Immunologic Allergic/Immunologic ED: Denies mouth swelling or urticaria EXAM Physical Exam Const Vital Signs: 03/04/22 13:28 Temperature 97.2 F L Temperature Source Temporal Pulse Rate 91 Respiratory Rate 14 Blood Pressure 156/91 H Blood Pressure Mean 112 Pulse Ox 100 Oxygen Delivery Method Room Air Positive well nourished, well developed and obese General Appearance ED: well developed and NAD Nutritional Appearance: obese HEENT Reports moist mucous membranes Neck supple and no JVD Resp normal respiratory effort and clear to auscultation bilaterally Cardio regular rate, regular rhythm and no murmurs GI normal to inspection, nondistended, normoactive bowel sounds and non-tender Palpation: soft Extremity normal to inspection General Extremety ED: Negative for edema or tenderness General Extremity: Negative for edema Neuro oriented x3, CN's II-XII intact bilaterally and no sensory deficits noted Sensorium / Orientation: alert Motor Exam: strength 5/5 throughout Psych mental status grossly normal Skin no rashes or lesions noted MDM MDM MDM Narrative Medical decision making narrative: Patient was ordered morphine here but she declined this. CBC was within normal limits. Basic metabolic profile was within normal limits. CTA of the chest was obtained. There is no evidence of pulmonary embolus. There is no aortic dissection noted. There are mild increased markings at the lung bases. This was interpreted by the radiologist and reviewed by myself. Patient was given a dose of Percocet here. Patient given prescriptions for short course of Percocet. Patient was instructed to follow-up with her primary care physician in 3 to 5 days for further evaluation and management. Patient understood and was agreeable with plan. All questions were answered. Lab Data Attestation: I reviewed the patient's lab results. Labs: Laboratory Results - last 24 hr 03/04/22 03/04/22 14:10 14:10 WBC 5.5 RBC 5.22 Hgb 15.2 H Hct 45.4 MCV 87.0 MCH 29.1 MCHC 33.5 RDW Std Deviation 39.7 RDW Coeff of Mikel 12.5 Plt Count 182 MPV 11.1 Immature Gran % (Auto) 0.200 Neut % (Auto) 61.9 Lymph % (Auto) 24.4 [place]ades % (Auto) 9.5 Eos % (Auto) 3.5 Baso % (Auto) 0.5 Absolute Neuts (auto) 3.4 Absolute Lymphs (auto) 1.33 Nucleated RBC % 0 Sodium 139 Potassium 4.0 Chloride 107 Carbon Dioxide 27.0 Anion Gap 5 BUN 10 Creatinine 0.82 Estim Creat Clear Calc 86.99 Est GFR (MDRD) Af Amer 102 Est GFR (MDRD) Non-Af 84 BUN/Creatinine Ratio 12.2 Glucose 87 Calcium 9.1 Radiography Diagnostic Testing: Clinical Impression(s) from Imaging Studies Chest CTA 03/04/22 13:56 IMPRESSION: No evidence of pulmonary emboli. Mild residual increased markings at the lung bases. There has been improvement as compared to prior study. Electronically Signed: Christiano Eduardo MD at 15:37 EDT , Discharge Plan Triage Chief Complaint: Back ED Provider: Greg Melgar Dx/Rx/DC Orders Clinical Impression: Acute thoracic back pain, Low back pain, Obesity Instructions: ED Back Pain (Acute or Chronic), ED Back Sprain/Strain Prescriptions: New oxycodone-acetaminophen [oxycodone-acetaminophen] 5-325 mg tablet 1 tab PO Q6H PRN PRN (Reason: Pain) 3 Days Qty: 12 0RF No Action meclizine 25 mg tablet 25 mg PO BID PRN (Reason: dizziness) Qty: 30 1RF (DME) Bilateral wrist splints for carpal tunnel syndrome See Rx Instructions .Route .MEDSUPPLY Qty: 2 0RF Rx Instructions: As directed pregabalin [Lyrica] 25 mg capsule 25 mg PO BID Qty: 60 1RF (DME) Aerochamber MV Spacer See Rx Instructions .ROUTE .MEDSUPPLY Qty: 1 0RF Rx Instructions: As directed (DME) Aeroneb Go Nebulizer Misc See Rx Instructions .ROUTE .MEDSUPPLY Qty: 1 0RF Rx Instructions: As directed vitamin E mixed 400 unit capsule 800 unit PO .qd Qty: 60 5RF hydroxyzine pamoate 50 mg capsule 50 mg PO TID PRN (Reason: anxiety) Qty: 20 0RF ketoprofen 75 mg capsule 75 mg PO Q6H PRN (Reason: Migraine Symptoms) Qty: 100 0RF Rx Instructions: 1 cap PO at on set of headache max of 3 in 24 hours, max 20 per month levothyroxine 137 mcg tablet 137 mcg PO DAILY Qty: 90 1RF prochlorperazine maleate [Compazine] 10 mg tablet 10 mg PO BID PRN (Reason: Migraine Symptoms) Qty: 30 1RF ursodiol 300 mg capsule 300 mg PO BID Qty: 180 1RF amlodipine 5 mg tablet 5 mg PO DAILY Qty: 90 1RF Primary Care Provider: Jose Alejandro London Referrals: Jose Alejandro London MD [Primary Care Provider] - 3-5 Days Disposition Disposition: Home, Self Care
--- NOTE | 2022-03-04 13:56 | CT_ITS ---
STUDY: CTA CHEST REASON FOR EXAM: Female, 36 years old. Shortness of breath and chest pain. RADIATION DOSAGE (If Supplied By Facility): CTDIvol = ( 12.54 ) mGy, DLP = ( 550.04 ) mGycm TECHNIQUE: The examination was performed with the intravenous administration of IV 100mL Isovue-370. Post-processing of the angiographic images was performed, with multiplanar reformation and 3D reconstruction. Individualized dose optimization techniques were used for this CT. COMPARISON: Comparison is made with prior study of 02/03/2021. FINDINGS: Normal enhancement of the main pulmonary artery and right and left pulmonary arteries. Normal enhancement of the bilateral peripheral pulmonary arteries. There is no demonstrated pulmonary embolism. Normal thoracic aorta and visualized great vessels. There is no demonstrated aortic dissection. Normal heart and pericardium. Normal mediastinum. Normal hilar regions. Normal visualized trachea and bronchi. The lungs are well expanded. Minimal degree of increased markings in the peripheral aspect of the right lower lobe as well as in the left lower lobe. This may represent area of scarring. There has been improvement as compared to prior study. Normal pleura. Normal chest wall structures. Normal osseous structures. Small hiatal hernia. CT/CTA Chest W/WO Contrast IMPRESSION: No evidence of pulmonary emboli. Mild residual increased markings at the lung bases. There has been improvement as compared to prior study. Electronically Signed: Christiano Eduardo MD at 15:37 EDT ,
[2022-03-04 14:21] LABS: Absolute Lymphocyte Count 1.33 X10^3/uL (0.83-4.51); Absolute Neutrophil Count 3.4 X10^3/uL (2.0-7.7); Basophil# 0.03 X10^3/uL; Basophil% 0.5 % (0-1); Eosinophil# 0.19 X10^3/uL; Eosinophils% 3.5 % (0-5); Hematocrit 45.4 % (37-47); Hemoglobin 15.2 g/dL (12.0-15.0); Lymphocyte # 1.33 X10^3/ul (0.83-4.51); Lymphocyte % 24.4 % (19-41); Mean Corp Hgb Conc 33.5 g/dL (32-36); Mean Corpuscular Hgb 29.1 pg (27.0-32.0); Mean Platelet Vol. 11.1 fl (6.2-12.0); Monocyte# 0.52 X10^3/uL; Monocyte% 9.5 % (0-10); NRBC Flagged by Analyzer 0 % (0-5); Neutrophil # 3.38 X10^3/uL (2.7-7.7); Neutrophil % 61.9 % (47-70); Platelet Count 182 K/mm3 (150-450); RBC Distribution Width CV 12.5 % (11.6-14.6); RBC Distribution Width SD 39.7 fl (35.1-43.9); Red Blood Count 5.22 M/mm3 (4.2-5.4); White Blood Count 5.5 K/mm3 (4.4-11.0)
[2022-03-04 14:36] LABS: Anion Gap 5 (5-15); BUN 10 mg/dL (7-18); BUN/Creat Ratio 12.2 RATIO (10-20); Calcium,Total 9.1 mg/dL (8.5-10.1); Chloride 107 mmol/L (98-107); Creatinine, Serum 0.82 mg/dL (0.55-1.02); EST Glomerular Filtration Rate 84 mL/min (>60); Est Glom Filt Rate - Afr Amer 102 mL/min (>60); Estimated Creatinine Clearance 86.99 ml/min; Glucose 87 mg/dL (74-106); Sodium Level 139 mmol/L (136-145)
[2022-03-04] MEDS: oxyCODONE 5 MG Tablet PO (16:08)
[2022-03-04 16:11] VITALS: PULSE 77; RESP 15; O2SAT 98
== END 2022-03-04 16:11 | disposition home or self-care (01) ==
PROVIDERS: Emergency Provider Emergency Medicine; PCP Internal Medicine; Visit Provider Emergency Medicine
DX: M54.6 Pain in thoracic spine (principal); E66.01 Morbid (severe) obesity due to excess calories; E11.9 Type 2 diabetes mellitus without complications; M54.50 Low back pain, unspecified; I10 Essential (primary) hypertension; M79.7 Fibromyalgia; E06.3 Autoimmune thyroiditis; R06.00 Dyspnea, unspecified; R07.9 Chest pain, unspecified; F41.1 Generalized anxiety disorder; E66.9 Obesity, unspecified; F17.210 Nicotine dependence, cigarettes, uncomplicated; Z79.890 Hormone replacement therapy; Z79.899 Other long term (current) drug therapy
CPT/HCPCS: 71275; 80048; 85025; 99285; Q9967; A4216

== ENCOUNTER 2022-03-12 12:28 | Emergency (ER) | payer BC, MEDICAID, SELFPAY ==
[2022-03-12 12:29] VITALS: BP 157/106; PULSE 119; RESP 16; TEMP 36.7; O2SAT 98; BMI 37.9
--- NOTE | 2022-03-12 13:03 | ED.VIS.BACK ---
HPI History of Present Illness Chief Complaint: Back Informant: patient Narrative Narrative: 5 weeks right lower back pain worse with movement. No urinary symptoms. No radicular pains down the legs. No loss of bowel or bladder control. Of note seen by myself back February 15 for similar concerns for kidney stone work-up negative had slight UTI placed on antibiotics. Culture returned negative. She had persistent symptoms seen at multiple ED's. From records there is CT scan on March 04 abdomen pelvis that was also negative. She was seen in the ED here on the due to upper back pain had a CT chest that was negative. She is referred to pain management Dr. Khan, consult note was scanned in the system and evaluated. She states placed her on Cymbalta for which she has not picked up the prescription. They reported possible marijuana however she states she smoked marijuana once at the age of 21 and she would never do this again. She states she was also placed on Flexeril however only makes her sleep and not help her symptoms. She not diabetic she states there is a steroid prescription also at the pharmacy has not picked up. She has a follow-up with pain management in the next couple weeks next month. She has allergies to NSAIDs. Later reviewed patient's consult note, recommended antidepressant possible future anticonvulsive recommended neuropathic medicines however she failed this in the past. They have further work-up with rheumatological issues in the works to rule out other things before final diagnosis fibromyalgia however this is the working diagnosis. They recommended no opiate therapy for her symptoms currently. They considered tramadol. Patient does not recall this and is not aware of the medication. There are also try and obtain records from her previous pain management with MRI studies. Prior similar symptoms: [facility] Medical History Abdominal pain Acute bronchitis, unspecified Acute sinusitis, unspecified ADHD (attention deficit hyperactivity disorder), combined type Arthritis Back pain Back pain Bronchitis Cancer Cardiology follow-up encounter Cervical lymphadenopathy Cervical radiculopathy Chronic back pain Chronic low back pain Chronic RUQ pain Easy bruising Ectopic cardiac beats Essential hypertension Fatty liver Fibromyalgia NICOLÁS (generalized anxiety disorder) Almaz's thyroiditis Heartburn History of acne History of echocardiogram History of gestational diabetes History of pain when walking History of stress test Hypertension Hypocalcemia Injury of head and neck Left-sided low back pain with left-sided sciatica Localized swelling, mass and lump, neck Melanoma Migraine without aura and with status migrainosus, not intractable Morbid obesity MARCELINO (nonalcoholic steatohepatitis) Numbness and tingling of both upper extremities Numbness of both lower extremities Palpitations Post herpetic neuralgia Restless legs Right femoral fracture RUQ abdominal pain Syncope Thyroid disease Tinnitus Tobacco abuse Type 2 diabetes mellitus Vertigo Home Medications inhalational spacing device (Aerochamber MV spacer) #1 ea 02/03/21 [Rx Last Taken Unknown] nebulizers ([employer] Go Nebulizer) #1 ea 05/25/21 [Rx Last Taken Unknown] vitamin E mixed 400 unit capsule 800 unit PO .qd #60 caps 07/07/21 [Rx Last Taken Unknown] meclizine 25 mg tablet 25 mg PO BID PRN dizziness #30 tabs 08/11/21 [Rx Last Taken Unknown] Bilateral wrist splints for carpal tunnel syndrome #2 ea 11/18/21 [Rx Last Taken Unknown] hydroxyzine pamoate 50 mg capsule 50 mg PO TID PRN anxiety #20 caps 02/11/22 [Rx Last Taken Unknown] ketoprofen 75 mg capsule 75 mg PO Q6H PRN Migraine Symptoms #100 caps 02/11/22 [Rx Last Taken Unknown] levothyroxine 137 mcg tablet 137 mcg PO DAILY #90 tabs 02/11/22 [Rx Last Taken Unknown] prochlorperazine maleate 10 mg tablet (Compazine) 10 mg PO BID PRN Migraine Symptoms #30 tabs 02/11/22 [Rx Last Taken Unknown] ursodiol 300 mg capsule 300 mg PO BID #180 caps 02/11/22 [Rx Last Taken Unknown] amlodipine 5 mg tablet 5 mg PO DAILY #90 tabs 02/23/22 [Rx Last Taken Unknown] pregabalin 25 mg capsule (Lyrica) 25 mg PO BID #60 caps 03/02/22 [Rx Last Taken Unknown] oxycodone-acetaminophen 5 mg-325 mg tablet 1 tab PO Q6H PRN PRN Pain 3 days #12 TABLETS 03/04/22 [Rx Last Taken Unknown] diazepam 5 mg tablet 5 mg PO Q8 PRN Muscle Spasm #12 tabs 03/12/22 [Rx Last Taken Unknown] Allergy/AdvReac Type Severity Reaction Status Date / Time promethazine [From Phenergan] Allergy Unknown Unknown Verified 03/12/22 12:29 latex Allergy Itching Verified 03/12/22 12:29 naproxen Allergy Unknown Verified 03/12/22 12:29 Penicillins [PCN] Allergy Rash Verified 03/12/22 12:29 escitalopram [From Lexapro] AdvReac Intermediate Lightheaded Verified 03/12/22 12:29 sertraline [From Zoloft] AdvReac Intermediate Dizzy & Verified 03/12/22 12:29 Headache dicyclomine [From Bentyl] AdvReac Unknown Unknown Verified 03/12/22 12:29 ondansetron HCl AdvReac Unknown Migraine Verified 03/12/22 12:29 [From Zofran (as hydrochloride)] hydrocodone [From Vicodin] AdvReac Other Verified 03/12/22 12:29 ketorolac [From Toradol] AdvReac Other Verified 03/12/22 12:29 Family History Grandmother Diabetes Other Family history of skin cancer High cholesterol Hypertension Surgical History History of surgery on arm History of thyroidectomy Social History Smoking Status: Current every day smoker tobacco type: cigarettes Tobacco: How many years used: 13 Electronic Cigarette Use: not used second hand exposure: No alcohol intake: current alcohol intake frequency: holidays/special occasions only substance use type: does not use caffeine: Yes what type of physical activity do you participate in: none seatbelt use: always do you feel safe at home: Yes additional social history: emmy [facility] ED Constitutional Constitutional ED: Denies chills, fever(s) or sweats Eyes Eyes: Denies change in vision ENT ENT ED: Denies dysphagia or sore throat Cardiovascular Cardiovascular: Denies chest pain, leg edema, palpitations or racing heartbeat Respiratory/Chest Respiratory/Chest: Denies cough, dyspnea or dyspnea on exertion Gastrointestinal Gastrointestinal: Denies abdominal pain, diarrhea, nausea or vomiting Genitourinary Genitourinary ED: Denies dysuria, hematuria or urinary frequency Musculoskeletal Musculoskeletal: Reports back pain; Denies extremity pain or neck pain Integumentary Denies rash or wounds Neurologic Neurologic: Denies headache(s), paresthesias or weakness EXAM Physical Exam Const Vital Signs: 03/12/22 12:29 Temperature 98.1 F Temperature Source Temporal Pulse Rate 119 H Respiratory Rate 16 Blood Pressure 157/106 H Blood Pressure Mean 123 Pulse Ox 98 Oxygen Delivery Method Room Air Positive well nourished and well developed Constitutional Narrative: Uncomfortable nontoxic General Appearance ED: well developed HEENT Reports moist mucous membranes normocephalic and atraumatic Eyes PERRL, EOMs intact bilaterally and conjunctivae normal General Eye ED: Yes normal appearance of both eyes Neck no lymphadenopathy and supple General: Negative for tenderness Chest Wall Chest: Negative for tenderness Resp normal respiratory effort and normal air movement Effort and Inspection: symmetric chest movement; Negative for respiratory distress Cardio regular rhythm and no murmurs Rate: tachycardic Peripheral Pulses: pulses 2+ throughout GI normal to inspection, nondistended, normoactive bowel sounds and non-tender Palpation: Negative for guarding or rebound tenderness present Back/Spine no CVA tenderness Back/Spine Narrative: No midline tenderness right lower paralumbar tenderness. 1+ patellar reflex. Extremity normal to inspection General Extremety ED: Negative for edema or tenderness General Extremity: Negative for edema Neuro oriented x3 and no sensory deficits noted Sensorium / Orientation: awake and alert Skin no rashes or lesions noted and no wounds MDM MDM MDM Narrative Medical decision making narrative: Patient uncomfortable tachycardic. She has no cauda equina symptoms. She cannot do NSAIDs. She drove her self here. After reviewing pain management consult, no opiates. She has Rx of steroids and cymbalta at pharmacy. Discussed can give once dose of Tramadol since possibility, but will need a ride, she declines. Rx for Valium, stop cyclobenzaprine. D/w her pain doctors for other Rx. All questions ansered. Discharge Plan Triage Chief Complaint: Back ED Provider: Drake Guzman Dx/Rx/DC Orders Clinical Impression: Acute exacerbation of chronic low back pain, Fibromyalgia, Lumbar strain Instructions: ED Back Sprain/Strain, ED Fibromyalgia Prescriptions: New diazepam [diazepam] 5 mg tablet 5 mg PO Q8 PRN (Reason: Muscle Spasm) Qty: 12 0RF No Action meclizine 25 mg tablet 25 mg PO BID PRN (Reason: dizziness) Qty: 30 1RF (DME) Bilateral wrist splints for carpal tunnel syndrome See Rx Instructions .Route .MEDSUPPLY Qty: 2 0RF Rx Instructions: As directed pregabalin [Lyrica] 25 mg capsule 25 mg PO BID Qty: 60 1RF (DME) Aerochamber MV Spacer See Rx Instructions .ROUTE .MEDSUPPLY Qty: 1 0RF Rx Instructions: As directed oxycodone-acetaminophen [oxycodone-acetaminophen] 5-325 mg tablet 1 tab PO Q6H PRN PRN (Reason: Pain) 3 Days Qty: 12 0RF (DME) Aeroneb Go Nebulizer Misc See Rx Instructions .ROUTE .MEDSUPPLY Qty: 1 0RF Rx Instructions: As directed vitamin E mixed 400 unit capsule 800 unit PO .qd Qty: 60 5RF hydroxyzine pamoate 50 mg capsule 50 mg PO TID PRN (Reason: anxiety) Qty: 20 0RF ketoprofen 75 mg capsule 75 mg PO Q6H PRN (Reason: Migraine Symptoms) Qty: 100 0RF Rx Instructions: 1 cap PO at on set of headache max of 3 in 24 hours, max 20 per month levothyroxine 137 mcg tablet 137 mcg PO DAILY Qty: 90 1RF prochlorperazine maleate [Compazine] 10 mg tablet 10 mg PO BID PRN (Reason: Migraine Symptoms) Qty: 30 1RF ursodiol 300 mg capsule 300 mg PO BID Qty: 180 1RF amlodipine 5 mg tablet 5 mg PO DAILY Qty: 90 1RF Primary Care Provider: Jose Alejandro London Referrals: Jose Alejandro London MD [Primary Care Provider] - EDER KHAN MD [Non-Staff] - 3-5 Days Activity Restrictions/Additional Instructions: Do not take your cyclobenzaprine. Take Valium as prescribed as needed. Start your Cymbalta as prescribed by your pain doctor. Start your steroids a report is at the pharmacy. We discussed with Dr. Khan for possible tramadol as he noted on his consult if needed. Follow-up with your doctors. Disposition Disposition: Home, Self Care Discharge Date/Time: 03/12/22 13:18
== END 2022-03-12 13:18 | disposition home or self-care (01) ==
LOC: ED 13:01
PROVIDERS: Emergency Provider Emergency Medicine; PCP Internal Medicine; Visit Provider Emergency Medicine
DX: S39.012A Strain of muscle, fascia and tendon of lower back, initial encounter (principal); G89.29 Other chronic pain; X58.XXXA Exposure to other specified factors, initial encounter; M79.7 Fibromyalgia; E11.9 Type 2 diabetes mellitus without complications; I10 Essential (primary) hypertension; F41.1 Generalized anxiety disorder; F17.210 Nicotine dependence, cigarettes, uncomplicated; Z79.890 Hormone replacement therapy; Z79.899 Other long term (current) drug therapy
CPT/HCPCS: 99282

== ENCOUNTER 2022-03-22 14:58 | Inpatient (IN) | payer BC, MEDICAID, SELFPAY ==
--- NOTE | 2022-03-02 08:59 | EKG12_ITS ---
Test Reason : PREOP Blood Pressure : / mmHG Vent. Rate : 087 BPM Atrial Rate : 087 BPM P-R Int : 158 ms QRS Dur : 082 ms QT Int : 374 ms P-R-T Axes : 019 047 035 degrees QTc Int : 450 ms Normal sinus rhythm Normal ECG Confirmed by ANNA HARTMAN, SHAYNA ([id number]), web content editor JULIO HDEZ ([id number]) on 03/03/2022 12:48:52 PM Referred By: Cassidy Moore Confirmed By:SHAYNA CASTILLO MD
[2022-03-02 09:53] LABS: Magnesium 1.8 mg/dL (1.6-2.6)
--- NOTE | 2022-03-21 19:55 | HP.PCM_ITS ---
History and Physical MR#: [id number] Acct: [id number] Name:AUSTIN RIVERA Rep #: [id number] : 1985 ? ? Provider: Dr. Cassidy Moore MD Age/Sex:? 36/F ? ? [place] [facility] [place]: Signed Intake Vital Signs ? 12/30/2214:28 02/16/2208:47 02/16/2208:52 Height 5 ft 6 in 5 ft 6 in 5 ft 6 in Weight: ? ? 233 lb BMI ? ? 37.5 BP ? ? 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 Required: No Is patient in pain?: No Allergies promethazine [From Phenergan] Allergy (Unknown, Verified 02/15/22 08:51) Unknownlatex Allergy (Verified 02/15/22 08:51) Itchingnaproxen Allergy (Verified 02/15/22 08:51) UnknownPenicillins [PCN] Allergy (Verified 02/15/22 08:51) Rashescitalopram [From Lexapro] Adverse Reaction (Intermediate, Verified 02/15/22 08:51) Lightheadedsertraline [From Zoloft] Adverse Reaction (Intermediate, Verified 02/15/22 08:51) Dizzy & Headachedicyclomine [From Bentyl] Adverse Reaction (Unknown, Verified 02/15/22 08:51) Unknownondansetron HCl [From Zofran (as hydrochloride)] Adverse Reaction (Unknown, Verified 02/15/22 08:51) Migrainehydrocodone [From Vicodin] Adverse Reaction (Verified 02/15/22 08:51) Otherketorolac [From Toradol] Adverse Reaction (Verified 02/15/22 08:51) Other Medications inhalational spacing device (Aerochamber MV spacer) #1 ea 02/03/21 [Rx Confirmed 02/15/22] nebulizers (Aeroneb Go Nebulizer) #1 ea 05/25/21 [Rx Confirmed 02/15/22] vitamin E mixed 400 unit capsule 800 unit PO .qd #60 caps 07/07/21 [Rx Confirmed 02/15/22] meclizine 25 mg tablet 25 mg PO BID PRN dizziness #30 tabs 08/11/21 [Rx Confirmed 02/15/22] Bilateral wrist splints for carpal tunnel syndrome #2 ea 11/18/21 [Rx Confirmed 02/15/22] cetirizine 10 mg tablet (Zyrtec) 10 mg PO BID PRN 11/18/21 [History Confirmed 02/15/22] amlodipine 5 mg tablet 5 mg PO DAILY #90 tabs 02/11/22 [Rx Confirmed 02/15/22] hydroxyzine pamoate 50 mg capsule 50 mg PO TID PRN anxiety #20 caps 02/11/22 [Rx Confirmed 02/15/22] ketoprofen 75 mg capsule 75 mg PO Q6H PRN Migraine Symptoms #100 caps 02/11/22 [Rx Confirmed 02/15/22] levothyroxine 137 mcg tablet 137 mcg PO DAILY #90 tabs 02/11/22 [Rx Confirmed 02/15/22] prochlorperazine maleate 10 mg tablet (Compazine) 10 mg PO BID PRN Migraine Symptoms #30 tabs 02/11/22 [Rx Confirmed 02/15/22] ursodiol 300 mg capsule 300 mg PO BID #180 caps 02/11/22 [Rx Confirmed 02/15/22] Post menopausal: No Patient : No : No PFSH Medical History?(Updated 02/15/22 @ 09:[address] Cassidy Moore MD) Abdominal pain Acute bronchitis, unspecified Acute sinusitis, unspecified ADHD (attention deficit hyperactivity disorder), combined type Back problem Bone fracture Bronchitis Cervical lymphadenopathy Cervical radiculopathy Chronic back pain Chronic low back pain Chronic RUQ pain Ectopic cardiac beats Essential hypertension NICOLÁS (generalized anxiety disorder) Almaz's thyroiditis Heartburn History of acne History of blood transfusion History of gestational diabetes Hypocalcemia Left-sided low back pain with left-sided sciatica Localized swelling, mass and lump, neck Melanoma Migraine without aura and with status migrainosus, not intractable Morbid obesity MARCELINO (nonalcoholic steatohepatitis) Numbness and tingling of both upper extremities Numbness of both lower extremities Palpitations Post herpetic neuralgia Right femoral fracture RUQ abdominal pain Thyroid disease Tinnitus Tobacco abuse Type 2 diabetes mellitus Vertigo Surgical History? History of surgery on arm History of thyroidectomy Family History? Grandmother DiabetesOther Family history of skin cancer High cholesterol Hypertension Social History? Smoking Status:? Current every day smoker tobacco type: cigarettes Tobacco: How many years used:? 13 Electronic Cigarette Use:? not used second hand exposure:? No alcohol intake:? current alcohol intake frequency: holidays/special occasions only substance use type:? does not use caffeine:? Yes what type of physical activity do you participate in:? none seatbelt use:? always do you feel safe at home:? Yes additional social history:? emmy HPI pre op Details: AUSTIN RIVERA is a 36 year old who presents for preop appointmant planning [facility] BS for AUB recurrent failed lysteda. History ? ? ? 2 ? Elective abortions ? Hx Para ? ? ? 2 ? Spontaneous abortions ? Hx # Term Pregnancies ? ? ? 2 ? Ectopic pregnancies ? Hx # Pregnancies ? Multiple births ? # of living children ? ? ? 2 Past Pregnancies Del. Date Name GA/Weeks Outcome Route Bth Weight Gen Labor Lgth Anesthesia Del Locatn Provider FOB Unknown 2012 elsa ? live - full term ? 08/25/17 Mary 39 live - full term 7lbs 9 oz Female ? epidural [facility] ? Delivery Date: 08/25/17? Last Updated by: Lenka Swan ? ? ? GDMA ROS Const Constitutional: Reports system reviewed and no additional complaints, except as documented; Denies chills, fever(s), weight gain or weight loss GI GI: Reports as per HPI; Denies abdominal pain, bloating, constipation, cramping, nausea or vomiting : Reports as per HPI; Denies urinary frequency or urinary urgency Exam Const General: cooperative, healthy appearing, comfortable, no acute distress and well developed Orientation: alert [facility] Head: normal to inspection and normocephalic Ears: hearing grossly normal bilaterally and external ears normal Nose: external nose normal and nares normal Face and sinus: normal facial exam Neck Neck: normal visual inspection and no lymphadenopathy Thyroid: thyroid normal Chest Chest palpation & inspection: normal inspection of the chest Resp Effort & Inspection: normal respiratory effort Auscultation: clear to auscultation bilaterally Cardio Rate: regular rate Rhythm: regular rhythm Heart Sounds: S1 normal and S2 normal GI Inspection: normal to inspection and non-distended Palpation: soft and no hepatosplenomegaly General: bladder normal to palpation External Female Exam: normal external appearance and normal appearance of the urethra Urethra: normal appearance of the urethra, normal palpation and no discharge Speculum Exam - Vagina: normal appearance of the vagina and normal vaginal discharge Speculum Exam - Cervix: normal appearance of the cervix and nontender Bimanual Exam- Vagina & Uterus: normal bimanual exam, uterine size normal, bladder normal to palpation, uterine shape normal, No tender, uterine mobility normal, consistency normal, normal palpation and non-tender Bimanual Exam- Adnexa, other: normal adnexae, adnexae mobile, no masses and normal Pelvic Support: normal Musc Other: gross motor intact no deficits, full bilateral strength Skin General: no rashes or lesions noted Neuro General: patient alert, patient awake, moves all extremities and no focal motor deficits Motor: muscle tone normal throughout Extrem General: normal to inspection and no pedal edema Psych Appearance: grossly normal Mental Status: mental status grossly normal Affect: normal affect Speech and Movement: speech and movement normal Coding Level of Care Code No Charge Diagnoses Menorrhagia with irregular cycle? N92.1 Almaz's thyroiditis? E06.3 Metabolic syndrome? E88.81 Assessment and Plan Assessment and Plan (1) Menorrhagia with irregular cycle: ?Status:?Acute ?Comment: nl US, emb done, failed lysteda and provera.? plan TVHBS. (2) Almaz's thyroiditis: ?Status:?Chronic ?Comment: s/p thyroid removal, repeat labs ordered (3) Metabolic syndrome: ?Status:?Chronic ?Comment: nl HgA1c last done Plan After discussing the patient's diagnosis and treatment plan options, patient wishes to proceed with surgical management.? I have discussed with the patient the risks, benefits, and alternatives of the procedure which include but are not limited to risks of anesthesia, bleeding, infection, possible damage to bowel, bladder, or surrounding vasculature which could lead to additional surgery to evaluate any complications.? Patient agrees to procedure and wishes to proceed.? ACOG/uptodate references given for additional information regarding procedure.? UPDATE- I have seen the patient and performed any clinically relevant updates to the history and physical exam. Cassidy Moore MD
[2022-03-22] VITALS (16 sets, daily range): BP systolic 109–125; BP diastolic 65–83; PULSE 73–112; RESP 12–20; TEMP 36.8–37.4; O2SAT 94–100; BMI 37.6; BMI 38.4
[2022-03-22 09:41] LABS: Internal QC Validated? YES +Cl - CLEAR BKGD
[2022-03-22 09:42] LABS: Pregnancy, Urine Negative Negative
[2022-03-22] MEDS: dexAMETHasone 10 MG/ML Vial 8 MG IV (09:45)
[2022-03-22] MEDS: Magnesium 2 GM for ERAS IV (09:51)
[2022-03-22 10:11] LABS: Bedside Glucose 82 mg/dL (74-106)
[2022-03-22] MEDS: Acetaminophen 500 MG Tablet 1000 MG PO ×3 (10:12→23:41)
[2022-03-22] MEDS: Phenazopyridine 95 MG Tablet 190 MG PO (10:16)
[2022-03-22] MEDS: Lactated Ringers 1,000 ML 40 ML IV (10:17)
[2022-03-22] MEDS: Enoxaparin 40 MG/0.4 ML Syringe SC (10:25)
[2022-03-22] MEDS: Celecoxib 200 MG Capsule 400 MG PO (10:25)
[2022-03-22] MEDS: Scopolamine 1mg/72hr Patch 1 PATCH TD (10:26)
[2022-03-22] MEDS: Gabapentin 600 MG Tablet PO (10:26)
[2022-03-22] MEDS: Clindamycin 900 MG/50 ML BAG 75 MG IV ×2 (10:31→19:17)
--- NOTE | 2022-03-22 10:55 | HYST_PTH ---
PATIENT: AUSTIN RIVERA LOC: [facility]3 U#:[id number] AGE/SX: 36/F ROOM: NM322 RE03/22/[address]: Dr. Cassidy Moore MD : 1985 BED: 1 DIS: 03/23/2022 SPEC #: [id number] RECD: 03/22/22 15:13 STATUS: NYA SERRANO #: [id number] CHARISMA: 03/22/22 10:[address]: Cassidy Moore DEPT: SURGICAL PATHOLOGY RECD BY: Juliano Medeiros ENTERED: 03/23/22 08:23 SP TYPE: HYSTERECT OTHR DR: Dr. Jose Alejandro London MD Tissues: Uterus, NOS Procedures: Surgery Specimen Level V HEADER OPERATION: ERAS, total vaginal hysterectomy, bilateral salpingectomy PRE-OP DIAGNOSIS: Menorrhagia with irregular cycle TISSUE SUBMITTED: Cervix, uterus, bilateral fallopian tubes and left ovary MICROSCOPIC DIAGNOSIS Uterus, hysterectomy: Cervix ? nabothian cysts, squamous metaplasia and mild chronic inflammation. Endometrium ? proliferative endometrium. Myometrium - No pathologic change. Right fallopian tube ? benign paratubal cyst. Left fallopian tube - No pathologic change. Left ovary ? benign follicular cysts. AM:gricelda 03/24/2022 MICROSCOPIC DESCRIPTION Slides are reviewed. GROSS DESCRIPTION Received in fixative is one container labeled with the patient's name and designated uterus. The specimen consists of a uterus with attached cervix measuring 10.8 x 5 x 4 cm and weighing 85 gm. The ectocervix is unremarkable. The cervical os is oval in contour. Present free in the container is a fallopian tube measuring 5 cm in length and 0.7 cm in average diameter. Adjacent to the fimbrial end is a smooth, glistening cyst containing clear fluid. The cyst measures 0.8 cm in greatest dimension. The fimbrial end has a normal villous appearance. Also present in the specimen container is a smooth, glistening, cystic ovary measuring 3.5 x 2 x 2 cm with adherent portion of fallopian tube and a second portion of detached fallopian tube that in aggregate measures 5 cm in length and 0.6 cm in average diameter. Serial sections of the ovary reveal multiple cysts ranging in size from 0.5 to 1 cm and contains clear fluid. The endocervical canal measures 3 cm in length and is grossly unremarkable. The triangular endometrial cavity measures 3.5 x 2.5 cm. The velvety, reddish-miller endometrium measures up to 0.2 cm in thickness. The myometrium measures 2 cm in average thickness and is free of mass lesions. Gear Shaper Set Up Operator sections are submitted in nine cassettes as follows: 1 - anterior cervix, 2 - posterior cervix, 3 & 4 - anterior uterine wall, 5 & 6 - posterior uterine wall, 7 - right fallopian tube with adjacent paratubal cyst, 8 & 9 - left ovary with fallopian tube. / AM:gricelda 03/23/2022 TC:5 CPT: 58693
[2022-03-22] MEDS: Vasopressin 20 UNITS/ML Vial (11:06)
[2022-03-22] MEDS: Lactated Ringers 1,000 ML 15 ML IV ×2 (12:16→14:46)
--- NOTE | 2022-03-22 13:55 | RAD_ITS ---
STUDY: X-RAY - ABDOMEN/PELVIS REASON FOR EXAM: Female, 36 years old. POSSIBLE FB -- ALLIS TOOL TECHNIQUE: Single AP view of the abdomen / pelvis. COMPARISON: None. FINDINGS: Normal visualized lung bases. There is an unremarkable bowel gas pattern. There is no demonstrated free abdominal air. The visualized liver, spleen and kidneys are grossly normal in size and morphology. No radiopaque foreign body is seen. Normal visualized osseous structures. RAD/Abdomen Single View IMPRESSION: No radiopaque foreign body is seen. Electronically Signed: Christiano Eduardo MD at 14:30 EDT ,
[2022-03-22] MEDS: Ondansetron 4 MG/2 ML Vial IV (14:06)
--- NOTE | 2022-03-22 15:05 | PCM.OPRPT ---
Problems Associated Problem List Diagnoses (1) Metabolic syndrome: (2) PCOS (polycystic ovarian syndrome): (3) Menorrhagia with irregular cycle: Report of Operation Date of Procedure: 03/22/22 Pre-Operative Diagnosis: see A/P Post-Operative Diagnosis: same Surgery/Procedure Performed:: TVH BS minilaparotomy left oophorectomy cystoscopy Surgeon: Cassidy Moore hospitalist nocturnist physician: Olivia Vernon hospitalist nocturnist physician: Dimple Han Type of Anesthesia: General Specimen's removed: uterus, tubes, left ovary Drains: alba Estimated Blood Loss (mL): 400 Fluids Replaced: crystalloid Description of Procedure: Patient was taken to the operating room and was placed under general anesthesia was prepped and draped in normal sterile fashion in the dorsal lithotomy position. Preoperative antibiotics and SCDs and Alba catheter was placed inside the bladder. Weighted speculum was placed in the vagina and the anterior and posterior lip of the cervix was grasped with 2 Ralph clamps and circumferentially injected with dilute vasopressin. There was limited descent but fair vaginal access and therefore the case was proceeded with vaginally. A circumferential incision was made with a scalpel and the posterior cul-de-sac was entered into sharply and a longneck speculum was placed. The anterior cul-de-sac was also dissected down and entered into sharply and the uterosacral ligaments were clamped cut and suture ligated bilaterally followed by the cardinal ligaments which were Clamped cut and suture ligated bilaterally with 0 Monocryl. The uterus serially descended and progressive bites were taken bilaterally up to the level of the utero-ovarian ligament bilaterally which was clamped transected and double ligated with 0 Monocryl suture and 0 Vicryl free tie. In tying down the left utero-ovarian pedicle a pop was felt and part of the pedicle slipped out and was noted to be surrounded by some sigmoid colon scar tissue. Several stitches were placed over this area to try and obtain hemostasis but unable to be successful. Some of the scar tissue was taken down without complication to aid in visualization. The decision to remove the ovary on that side to obtain hemostasis from where the scar tissue had caused the loose pedicle and additional bleeding was made. A clamp was placed across the bottom of the ovary the ovary cut and removed and then the ovarian pedicle sutured over. Due to limited vaginal access from patient body habitus the sidewall was very difficult to be fully visualized and bleeding was noted in the area and after multiple attempts to obtain visualization the decision was made to perform a mini laparotomy to obtain hemostasis of the area. The abdomen was prepped with chlorhexidine and the area draped with sterile towels while the clamps were left in situ vaginally to limit blood loss. A mini Pfannenstiel incision was made with a scalpel and carried through to underlying layer of the fascia with the Bovie and the fascia was nicked in the midline and the incision extended laterally. Peritoneum entered digitally and incision stretched laterally. An Ozzy retractor used to obtain visualization of the area. The pelvis was noted to be very deep and due to patient body habitus visualization was also limited abdominally. Left sigmoid: Scar tissue was seen which was retracted laterally and partially taken down. Otherwise the bowel had a normal appearance. The left pelvic sidewall was then visualized and oversewn with 2 [id number] 0 Vicryl sutures to obtain hemostasis. At this time the attention was paid back to the vaginal portion and the vagina was closed with 0 Vicryl [id number] sutures to obtain hemostasis and vaginal cuff closure. Cystoscopy was then performed by inflating the bladder with sterile water and visualizing no defects in the bladder wall and bilateral ureteral patency was confirmed. Again the abdomen was checked and the area over the cuff oversewn with 3-0 Vicryl. Jessica placed over the area for additional hemostasis over the raw places. Right ovary was noted to be within normal limits and hemostatic. All instruments removed from the abdomen and peritoneum was closed with 3-0 Vicryl fascia closed with 0 strata fix PDS and skin closed with 4-0 Monocryl after the subcutaneous tissue was irrigated and closed with 3-0 Monocryl. All instruments removed from the vagina clear urine was noted at the end of the procedure and patient was awoken and taken recovery in stable condition. Grafts/Implants Used: none Complications none Admit VTE Documentation VTE Present on Admission: No VTE Mechan Device Prophylaxis: SCD's VTE Pharm Prophylaxis ordered?: Yes Multi Select Codes Urinary/Genital Urinary/Genital CPT Codes: 23640 Cystoscopy and 31422 TVH+BS/O <250gr uterus (ATTENTION PERRY additional minilaparotomy performed for evaluation of bleeding. cuff closed vaginally and uterus removed vaginally)
[2022-03-22 17:45] LABS: Absolute Lymphocyte Count 0.61 X10^3/uL (0.83-4.51); Absolute Neutrophil Count 10.2 X10^3/uL (2.0-7.7); Basophil# 0.01 X10^3/uL; Basophil% 0.1 % (0-1); Hematocrit 41.2 % (37-47); Hemoglobin 13.8 g/dL (12.0-15.0); Lymphocyte # 0.61 X10^3/ul (0.83-4.51); Lymphocyte % 5.3 % (19-41); Mean Corp Hgb Conc 33.5 g/dL (32-36); Mean Corpuscular Hgb 28.3 pg (27.0-32.0); Mean Corpuscular Volume 84.6 fL (81-99); Mean Platelet Vol. 11.2 fl (6.2-12.0); Monocyte# 0.59 X10^3/uL; Monocyte% 5.1 % (0-10); NRBC Flagged by Analyzer 0 % (0-5); Neutrophil # 10.23 X10^3/uL (2.7-7.7); Neutrophil % 89.1 % (47-70); Platelet Count 178 K/mm3 (150-450); RBC Distribution Width CV 12.4 % (11.6-14.6); RBC Distribution Width SD 37.5 fl (35.1-43.9); Red Blood Count 4.87 M/mm3 (4.2-5.4); White Blood Count 11.5 K/mm3 (4.4-11.0)
--- NOTE | 2022-03-22 17:52 | PCM.PN.BLA ---
Progress Note explained surgery to patient, answered questions. reviewed borderline tachycardia, check blood counts and give IVFs PRN. admit overnight for obs and due to mini laparotomy.
[2022-03-22] MEDS: oxyCODONE 5 MG Tablet PO ×2 (18:14→22:20)
[2022-03-22] MEDS: Lactated Ringers 1,000 ML 999 ML IV (18:15)
--- NOTE | 2022-03-22 18:36 | EX.PCM.DISCH ---
Discharge Instructions Procedure Hysterectomy, Abd Diet Discharge Diet: No restrictions Activity Discharge Activity: Return to Normal Activity, May Not Drive (while taking narcotic pain medications.) and May Shower May resume sexual activity in: 6-8 weeks Weight Bearing Status: Weight bearing as tolerated Dressing / Incision Call your doctor if your incision/area has: Continuous Slow Oozing, Sudden Increased Bleeding, Increased Pain/ Swelling, Increased Redness and Foul Smelling Discharge Call your doctor if you observe: Fever of 101 or Higher, Inability to urinate, Inability to have a bowel movement and Using more than 1 pad per hour Follow Up Care Please Follow Up With: Cassidy Moore MD Test Results: Test results from this visit will be discussed in further detail at your follow-up appointment, if applicable. Discharge Plan Admission Admit Date/Time: 03/22/22 14:58 Attending Provider: Cassidy Moore Primary Care Provider: Jose Alejandro London Discharge Orders/Prescriptions Prescriptions: New oxycodone-acetaminophen [Percocet] 5-325 mg tablet 1 tab PO Q6H PRN (Reason: pain) 7 Days Qty: 28 0RF Continued meclizine 25 mg tablet 25 mg PO BID PRN (Reason: dizziness) Qty: 30 1RF (DME) Bilateral wrist splints for carpal tunnel syndrome See Rx Instructions .Route .MEDSUPPLY Qty: 2 0RF Rx Instructions: As directed (DME) Aerochamber MV Spacer See Rx Instructions .ROUTE .MEDSUPPLY Qty: 1 0RF Rx Instructions: As directed (DME) Aeroneb Go Nebulizer Misc See Rx Instructions .ROUTE .MEDSUPPLY Qty: 1 0RF Rx Instructions: As directed vitamin E mixed 400 unit capsule 800 unit PO .qd Qty: 60 5RF hydroxyzine pamoate 50 mg capsule 50 mg PO TID PRN (Reason: anxiety) Qty: 20 0RF ketoprofen 75 mg capsule 75 mg PO Q6H PRN (Reason: Migraine Symptoms) Qty: 100 0RF Rx Instructions: 1 cap PO at on set of headache max of 3 in 24 hours, max 20 per month levothyroxine 137 mcg tablet 137 mcg PO DAILY Qty: 90 1RF prochlorperazine maleate [Compazine] 10 mg tablet 10 mg PO BID PRN (Reason: Migraine Symptoms) Qty: 30 1RF ursodiol 300 mg capsule 300 mg PO BID Qty: 180 1RF amlodipine 5 mg tablet 5 mg PO DAILY Qty: 90 1RF Other Ambulatory Orders: ,Urine (Routine) Timeframe: [id number] Facility: [facility] - Location: Laboratory Ordered By: Dr. Cassidy Moore Referrals / Follow Up: Jose Alejandro London MD [Primary Care Provider] -
[2022-03-22 18:46] LABS: Bedside Glucose 135 mg/dL (74-106)
[2022-03-22] MEDS: Docusate Sodium 100 MG Capsule PO (21:36)
[2022-03-22 22:00] LABS: Bedside Glucose 127 mg/dL (74-106)
[2022-03-23 03:40] VITALS: BP 109/64; PULSE 68; RESP 16; TEMP 36.5; O2SAT 98
[2022-03-23] MEDS: oxyCODONE 5 MG Tablet PO ×2 (03:59→08:51)
[2022-03-23 04:04] VITALS: BP 109/64; PULSE 68; RESP 16; TEMP 36.5; O2SAT 98
[2022-03-23] MEDS: Acetaminophen 500 MG Tablet 1000 MG PO ×2 (06:24→12:13)
[2022-03-23] MEDS: Levothyroxine 137 MCG Tablet PO (06:24)
[2022-03-23 06:39] LABS: Hematocrit 40.2 % (37-47); Hemoglobin 13.4 g/dL (12.0-15.0); Mean Corp Hgb Conc 33.3 g/dL (32-36); Mean Corpuscular Hgb 28.3 pg (27.0-32.0); Mean Corpuscular Volume 84.8 fL (81-99); Mean Platelet Vol. 10.6 fl (6.2-12.0); Platelet Count 172 K/mm3 (150-450); RBC Distribution Width CV 12.4 % (11.6-14.6); RBC Distribution Width SD 38.3 fl (35.1-43.9); Red Blood Count 4.74 M/mm3 (4.2-5.4); White Blood Count 9.1 K/mm3 (4.4-11.0)
[2022-03-23 06:50] LABS: Bedside Glucose 101 mg/dL (74-106)
[2022-03-23 07:22] VITALS: O2SAT 96
--- NOTE | 2022-03-23 07:46 | PCM.PN.OB ---
Subjective Subjective Patient doing well without complaints pain fairly controlled with oral meds. Tolerating PO. alba still in, needs to ambulate. Denies chest pain, shortness of breath, calf pain/swelling, fevers, chills, lightheadedness. Objective Data Objective Data Vital Signs: Vital Signs Temp Pulse Resp BP Pulse Ox O2 Del Method O2 Flow Rate 97.7 F L 68 16 109/64 96 Room Air 4 03/23/22 04:04 03/23/22 04:04 03/23/22 04:04 03/23/22 04:04 03/23/22 07:22 03/23/22 07:22 03/22/22 18:30 Oxygen Flow Rate (L/min) 4 Oxygen Delivery Method Room Air Weight: 238 lb 1.588 oz Body Mass Index (BMI) 38.4 Intake & Output: Intake and Output for Last 24 Hours 03/21/22 03/22/22 03/23/22 23:59 23:59 23:59 Intake Total 3515.25 / 3515.25 Output Total 3180 / 3180 900 / 900 Balance 335.25 / 335.25 -900 / -900 Lab / Micro Data Result Diagrams: 03/23/22 06:25 Labs: Laboratory Results - last 24 hr 03/22/22 09:30: Urine Test Negative 03/22/22 09:40: Blood Type A NEGATIVE, Antibody Screen NEGATIVE 03/22/22 09:52: POC Glucose 82 03/22/22 17:25: WBC 11.5 H, RBC 4.87, Hgb 13.8, Hct 41.2, MCV 84.6, MCH 28.3, MCHC 33.5, RDW Std Deviation 37.5, RDW Coeff of Mikel 12.4, Plt Count 178, MPV 11.2, Immature Gran % (Auto) 0.400, Neut % (Auto) 89.1 H, Lymph % (Auto) 5.3 L, [place] % (Auto) 5.1, Eos % (Auto) 0.0, Baso % (Auto) 0.1, Absolute Neuts (auto) 10.2 H, Absolute Lymphs (auto) 0.61 L, Nucleated RBC % 0 03/22/22 18:24: POC Glucose 135 H 03/22/22 21:33: POC Glucose 127 H 03/23/22 06:20: POC Glucose 101 03/23/22 06:25: WBC 9.1, RBC 4.74, Hgb 13.4, Hct 40.2, MCV 84.8, MCH 28.3, MCHC 33.3, RDW Std Deviation 38.3, RDW Coeff of Mikel 12.4, Plt Count 172, MPV 10.6 Radiography Diagnostic Testing: Radiology Impression KUB X-Ray 03/22/22 13:55 IMPRESSION: No radiopaque foreign body is seen. Electronically Signed: Christiano Eduardo MD at 14:30 EDT , ROS Constitutional Constitutional: Reports systems reviewed and no addt'l complaints, except as documented Cardiovascular Cardiovascular: Reports systems reviewed and no addt'l complaints, except as documented Respiratory/Chest Respiratory/Chest: Reports systems reviewed and no addt'l complaints, except as documented Gastrointestinal Gastrointestinal: Reports systems reviewed and no addt'l complaints, except as documented Physical Exam Const alert, oriented x3 and no apparent distress HEENT Head and Scalp: atraumatic Resp normal respiratory effort GI soft to palpation and non-tender Assessment & Plan (1) S/P vaginal hysterectomy: COMMENT: tvh bs left oophorectomy mini lap due to bleeding (2) Hypertension: COMMENT: home meds ordered (3) Type 2 diabetes mellitus: COMMENT: SSI humalog ordered, diabetic diet PLAN: Plan patient is s/p tvhbsleft oophorectomy mini lap for bleeding POD 1 1. routine ERAS protocol within limitations of multiple patient allergies- increase ambulation and dc alba, encourage oral intake and oral control of pain. lovenox and scds for dvt prophylaxis, patient stable for discharge to home possibly today.
[2022-03-23 08:18] VITALS: BP 104/66; PULSE 67; RESP 16; TEMP 36.8; O2SAT 97
[2022-03-23 08:40] VITALS: BP 110/64; PULSE 67; RESP 18; TEMP 36.9; O2SAT 98
[2022-03-23] MEDS: Docusate Sodium 100 MG Capsule PO (08:47)
[2022-03-23] MEDS: Enoxaparin 40 MG/0.4 ML Syringe SC (08:47)
[2022-03-23] MEDS: amLODIPine 5 MG Tablet PO (08:48)
[2022-03-23] MEDS: Ensure Plus High Protein 120 ML LIQUID PO (08:48)
--- NOTE | 2022-03-23 09:40 | PHA.DC.MR ---
Pharmacy Service has performed discharge medication reconciliation for this patient. The patient's discharge medication list was reviewed for discrepancies and discrepancies were resolved. Home Medications inhalational spacing device (Aerochamber MV spacer) #1 ea 02/03/21 nebulizers (Aeroneb Go Nebulizer) #1 ea 05/25/21 vitamin E mixed 400 unit capsule 800 unit PO .qd #60 caps 07/07/21 meclizine 25 mg tablet 25 mg PO BID PRN dizziness #30 tabs 08/11/21 Bilateral wrist splints for carpal tunnel syndrome #2 ea 11/18/21 hydroxyzine pamoate 50 mg capsule 50 mg PO TID PRN anxiety #20 caps 02/11/22 ketoprofen 75 mg capsule 75 mg PO Q6H PRN Migraine Symptoms #100 caps 02/11/22 levothyroxine 137 mcg tablet 137 mcg PO DAILY #90 tabs 02/11/22 prochlorperazine maleate 10 mg tablet (Compazine) 10 mg PO BID PRN Migraine Symptoms #30 tabs 02/11/22 ursodiol 300 mg capsule 300 mg PO BID #180 caps 02/11/22 amlodipine 5 mg tablet 5 mg PO DAILY #90 tabs 02/23/22 oxycodone-acetaminophen 5 mg-325 mg tablet (Percocet) 1 tab PO Q6H PRN pain 7 days #28 tabs 03/22/22
--- NOTE | 2022-03-23 10:20 | CASEMGMT ---
RN CM Face to Face with patient for initial transition planning/care coordination assessment. RN CM introduced self and role at [facility]. Patient lying in bed, alert and oriented. Patient willing to participate in assessment and is able to answer all questions appropriately. Care providers, pharmacy, and demographics verified. Patient wishes to discharge home, denies need for home health at this time. Patient states she has no further needs or concerns at this time. CM to follow for discharge planning needs that may arise. PCP: Lita Specialists: Teresa, [employer]; Friend, GI; Felix, spinal ortho Preferred Pharmacy: [facility] retail Insurance: [employer] Prescription Benefit: yes Living Will/HPOA: none LNOK: Living Arrangements: Patient lives with in a 2 story home. Patient is independent and able to ambulate stairs at home. Transportation: self, DME/HHC: Patient states she has shower chair, raised toilet, cane, and rollator at home from grandmother. Patient denies previous HHC. Disposition Plan: Patient to discharge home with family support and follow-up plans in place. Angie VU, RN, CM
[2022-03-23 11:26] VITALS: BP 106/65; PULSE 66; RESP 20; TEMP 36.8; O2SAT 97
[2022-03-23 11:35] LABS: Bedside Glucose 142 mg/dL (74-106)
== END 2022-03-23 13:07 | disposition home or self-care (01) | DRG 909 ==
LOC: SDC 15:19 → MS3 15:19
PROVIDERS: Anesthesiology; Admitting Provider Obstetrics & Gynecology; PCP Internal Medicine; Referring Provider Obstetrics & Gynecology; Visit Provider Obstetrics & Gynecology
PROC: 0W3R0ZZ Control Bleeding in Genitourinary Tract, Open Approach (ICD-10-PCS; CPT 58260; principal; 2022-03-22 10:40)
DX: N99.61 Intraoperative hemorrhage and hematoma of a genitourinary system organ or structure complicating a genitourinary system procedure (principal); E06.3 Autoimmune thyroiditis; E88.81 Metabolic syndrome and other insulin resistance; E11.9 Type 2 diabetes mellitus without complications; I10 Essential (primary) hypertension; F17.210 Nicotine dependence, cigarettes, uncomplicated; N92.1 Excessive and frequent menstruation with irregular cycle; Y83.6 Removal of other organ (partial) (total) as the cause of abnormal reaction of the patient, or of later complication, without mention of misadventure at the time of the procedure; Y92.234 Operating room of hospital as the place of occurrence of the external cause
CPT/HCPCS: 36415; 74018; 81025; 82962; 83735; 85025; 85027; 86850; 86900; 86901; 88307; 93005; 99251; 99406; J7120; G0463; J2405; Q9968

== ENCOUNTER 2022-03-30 14:02 | Emergency (ER) | payer MEDICAID, SELFPAY ==
[2022-03-30 14:04] VITALS: BP 119/83; PULSE 90; RESP 18; TEMP 36.3; O2SAT 99; BMI 36.9
[2022-03-30 15:11] LABS: Absolute Neutrophil Count 4.2 X10^3/uL (2.0-7.7); Basophil# 0.02 X10^3/uL; Basophil% 0.3 % (0-1); Eosinophil# 0.26 X10^3/uL; Hematocrit 38.9 % (37-47); Lymphocyte % 23.1 % (19-41); Mean Corp Hgb Conc 33.4 g/dL (32-36); Mean Corpuscular Hgb 28.3 pg (27.0-32.0); Mean Corpuscular Volume 84.6 fL (81-99); Mean Platelet Vol. 10.5 fl (6.2-12.0); Monocyte# 0.49 X10^3/uL; Monocyte% 7.5 % (0-10); NRBC Flagged by Analyzer 0 % (0-5); Neutrophil # 4.21 X10^3/uL (2.7-7.7); Neutrophil % 64.8 % (47-70); Platelet Count 243 K/mm3 (150-450); RBC Distribution Width CV 12.5 % (11.6-14.6); RBC Distribution Width SD 37.9 fl (35.1-43.9); White Blood Count 6.5 K/mm3 (4.4-11.0)
[2022-03-30 15:27] LABS: AST(SGOT) 17 U/L (15-37); Alanine Aminotransfer ALT/SGPT 31 U/L (13-56); Albumin, Serum 3.6 g/dL (3.2-5.0); Alkaline Phosphatase 69 U/L (45-117); Anion Gap 5 (5-15); BUN 9 mg/dL (7-18); BUN/Creat Ratio 12.7 RATIO (10-20); Calcium,Total 9.1 mg/dL (8.5-10.1); Chloride 105 mmol/L (98-107); Creatinine, Serum 0.71 mg/dL (0.55-1.02); EST Glomerular Filtration Rate 100 mL/min (>60); Est Glom Filt Rate - Afr Amer 121 mL/min (>60); Estimated Creatinine Clearance 104.52 ml/min; Globulin 3.7 g/dL (2.2-4.2); Glucose 102 mg/dL (74-106); Potassium 3.8 mmol/L (3.5-5.1); Protein, Total 7.3 g/dL (6.4-8.2); Sodium Level 137 mmol/L (136-145)
--- NOTE | 2022-03-30 15:27 | CT_ITS ---
STUDY: CT ABDOMEN AND PELVIS WITH CONTRAST REASON FOR EXAM: Female, 36 years old. Post surgery wound RADIATION DOSAGE (If Supplied By Facility): CTDIvol = ( 16.76 ) mGy, DLP = ( 1344.01 ) mGycm TECHNIQUE: Transaxial images were obtained from the dome of the diaphragm to the symphysis pubis without oral contrast. IV 100mL Isovue-370 was administered. Sagittal and coronal images were reconstructed. Individualized dose optimization techniques were used for this CT. COMPARISON: Comparison is made with prior study dated 02/24/2022. FINDINGS: Stable minimal increased linear markings in the peripheral aspect of the right lower lobe. The visualized portions of the heart are within normal limits. There is decreased attenuation of the liver consistent with steatosis. Normal gallbladder and extrahepatic biliary system. Normal spleen. Normal pancreas. Normal bilateral adrenal glands. Normal right kidney. Normal left kidney. Normal visualized stomach. Normal small intestine. Normal colon. The appendix is visualized and appears normal. Normal abdominal aorta. Normal inferior vena cava. Normal retroperitoneum. Normal urinary bladder. The patient is status post hysterectomy. Increased markings are seen in the pelvic fat at the site of the surgery. Small fluid collections are seen in the pelvis. The largest collection measures 2.8 cm x 4.3 cm. Mild degree of increased markings in the subcutaneous fat in the lower anterior abdominal wall into both prior surgical intervention. Tiny amount of air is seen within the umbilicus most likely at the site of the port placement. Normal osseous structures. CT/Abdomen/Pelvis WITH Contrast IMPRESSION: Status post hysterectomy with postoperative change in the pelvic fat at the site of the surgery. Several small fluid collections are seen at the operative site. This may represent postoperative hematoma or seroma. Follow-up recommended. Electronically Signed: Christiano Eduardo MD at 15:47 EST ,
--- NOTE | 2022-03-30 15:28 | EDS_ITS ---
HPI HPI - GI History of Present Illness Chief Complaint: Other, Pain/Inj Informant: patient Abdominal Pain/Flank Pain Onset: Weeks (1) Context: Gradual Onset Timing: Continuous Quality: - (sore) Location: - (Lower abdomen at operative incision) Current Severity: Mild Maximum Severity: Moderate Worsened by: Movement Relieved by: Remaining Still Nausea/Vomiting/Emesis GI Symptom: Negative for Nausea or Vomiting Diarrhea/Melena/Hematochezia GI Symptom: Negative for Diarrhea, Melena or Hematochezia Associated Symptoms Associated Symptoms: Negative for Dysuria, Frequency or Hematuria Narrative Narrative: Patient had a total vaginal hysterectomy that became a total abdominal hysterectomy 1 week ago due to some intraoperative complications according to the patient, she has been having soreness in her incision that has not improved but not necessarily worsened, she was evaluated by her associate partner postoperatively today and sent for CT due to abnormal exam with regards to the incision and concern for hematoma/seroma/other complication or abscess. Patient denies any seepage her postoperative dressing is still in place, no fevers or chills, she is having bowel movements although they are hard but things are moving along and she is urinating normally. No other areas of abdominal pain. [facility] Medical History Abdominal pain Acute bronchitis, unspecified Acute sinusitis, unspecified ADHD (attention deficit hyperactivity disorder), combined type Arthritis Back pain Back pain Bronchitis Cancer Cardiology follow-up encounter Cervical lymphadenopathy Cervical radiculopathy Chronic back pain Chronic low back pain Chronic RUQ pain Easy bruising Ectopic cardiac beats Essential hypertension Fatty liver Fibromyalgia NICOLÁS (generalized anxiety disorder) Almaz's thyroiditis Heartburn History of acne History of echocardiogram History of gestational diabetes History of pain when walking History of stress test Hypertension Hypocalcemia Injury of head and neck Left-sided low back pain with left-sided sciatica Localized swelling, mass and lump, neck Melanoma Migraine without aura and with status migrainosus, not intractable Morbid obesity MARCELINO (nonalcoholic steatohepatitis) Numbness and tingling of both upper extremities Numbness of both lower extremities Palpitations Post herpetic neuralgia Restless legs Right femoral fracture RUQ abdominal pain Syncope Thyroid disease Tinnitus Tobacco abuse Vertigo Home Medications vitamin E mixed 400 unit capsule 800 unit PO .qd #60 caps 07/07/21 [Rx Last Taken Unknown] meclizine 25 mg tablet 25 mg PO BID PRN dizziness #30 tabs 08/11/21 [Rx Last Taken Unknown] hydroxyzine pamoate 50 mg capsule 50 mg PO TID PRN anxiety #20 caps 02/11/22 [Rx Last Taken Unknown] ketoprofen 75 mg capsule 75 mg PO Q6H PRN Migraine Symptoms #100 caps 02/11/22 [Rx Last Taken Unknown] levothyroxine 137 mcg tablet 137 mcg PO DAILY #90 tabs 02/11/22 [Rx Last Taken 03/22/22] prochlorperazine maleate 10 mg tablet (Compazine) 10 mg PO BID PRN Migraine Symptoms #30 tabs 02/11/22 [Rx Last Taken Unknown] ursodiol 300 mg capsule 300 mg PO BID #180 caps 02/11/22 [Rx Last Taken Unknown] amlodipine 5 mg tablet 5 mg PO DAILY #90 tabs 02/23/22 [Rx Last Taken 03/22/22] oxycodone-acetaminophen 5 mg-325 mg tablet (Percocet) 1 tab PO Q6H PRN pain 7 days #28 tabs 03/25/22 [Rx Last Taken Unknown] Allergy/AdvReac Type Severity Reaction Status Date / Time promethazine [From Phenergan] Allergy Unknown Unknown Verified 03/30/22 14:03 latex Allergy Itching Verified 03/30/22 14:03 naproxen Allergy Unknown Verified 03/30/22 14:03 Penicillins [PCN] Allergy Rash Verified 03/30/22 14:03 escitalopram [From Lexapro] AdvReac Intermediate Lightheaded Verified 03/30/22 14:03 sertraline [From Zoloft] AdvReac Intermediate Dizzy & Verified 03/30/22 14:03 Headache dicyclomine [From Bentyl] AdvReac Unknown Unknown Verified 03/30/22 14:03 ondansetron HCl AdvReac Unknown Migraine Verified 03/30/22 14:03 [From Zofran (as hydrochloride)] hydrocodone [From Vicodin] AdvReac Other Verified 03/30/22 14:03 ketorolac [From Toradol] AdvReac Other Verified 03/30/22 14:03 Family History Grandmother Diabetes Other Family history of skin cancer High cholesterol Hypertension Surgical History History of surgery on arm History of thyroidectomy History of total vaginal hysterectomy (TVH) (~03/22/22) Social History Smoking Status: Current every day smoker tobacco type: cigarettes Tobacco: How many years used: 13 Electronic Cigarette Use: not used second hand exposure: No alcohol intake: current alcohol intake frequency: holidays/special occasions only substance use type: does not use caffeine: Yes what type of physical activity do you participate in: none seatbelt use: always do you feel safe at home: Yes additional social history: emmy HAMILTON ED Constitutional Constitutional ED: Denies chills or fever(s) Eyes Eyes: Denies change in vision or diplopia ENT ENT ED: Denies rhinorrhea or sore throat Cardiovascular Cardiovascular: Denies chest pain or palpitations Respiratory/Chest Respiratory/Chest: Denies cough or dyspnea Gastrointestinal Gastrointestinal: Reports as per HPI and abdominal pain; Denies diarrhea, nausea or vomiting Genitourinary Genitourinary ED: Denies dysuria or hematuria Musculoskeletal Musculoskeletal: Denies back pain or neck pain Integumentary Reports as per HPI and wounds; Denies abscess or rash Neurologic Neurologic: Denies headache(s), paresthesias or weakness Psychiatric Psychiatric: Denies anxiety or suicidal thoughts EXAM Physical Exam Const Vital Signs: 03/30/22 14:04 03/30/22 15:11 03/30/22 15:03 Temperature 97.4 F L Temperature Source Temporal Pulse Rate 90 Respiratory Rate 18 Respiratory Effort Normal Normal Respiratory Pattern Normal Normal Blood Pressure 119/83 H Blood Pressure Mean 95 Pulse Ox 99 Oxygen Delivery Method Room Air Positive well nourished and well developed General Appearance ED: well developed and NAD HEENT Reports moist mucous membranes normocephalic and atraumatic Eyes PERRL and EOMs intact bilaterally Neck full ROM and supple Resp normal respiratory effort and clear to auscultation bilaterally Cardio regular rate, regular rhythm and no murmurs GI non-distended GI Narrative: Lower abdomen postoperative dressing in place, narrow along the transverse incision. Postsurgical ecchymosis without any signs of cellulitis around the incision, diffusely tender no palpable mass. Examined while sitting. Auscultation: normoactive bowel sounds Palpation: soft Back/Spine no CVA tenderness General Back: other FROM Extremity normal to inspection General Extremety ED: Negative for edema, pulses abnormal or tenderness General Extremity: Negative for edema or pulses abnormal Neuro oriented x3, CN's II-XII intact bilaterally, no sensory deficits noted and gait normal Sensorium / Orientation: awake and alert Motor Exam: strength 5/5 throughout Psych mental status grossly normal and thought process normal Skin no rashes or lesions noted and no wounds MDM MDM MDM Narrative Medical decision making narrative: Labs are noted and very reassuring, CT of the abdomen/pelvis with IV contrast was obtained and shows 2 small fluid collections consistent with postoperative hematoma or seroma. Discussed with Dr. Garcia, for these she is reassured and would be comfortable with close outpatient follow-up no operative or interventional intervention needed. Discussed with patient and offered analgesics which she declines. She is scheduled to be seen in follow-up next week. Lab Data Attestation: I reviewed the patient's lab results. Labs: Laboratory Results - last 24 hr 03/30/22 03/30/22 14:46 14:46 WBC 6.5 RBC 4.60 Hgb 13.0 Hct 38.9 MCV 84.6 MCH 28.3 MCHC 33.4 RDW Std Deviation 37.9 RDW Coeff of Mikel 12.5 Plt Count 243 MPV 10.5 Immature Gran % (Auto) 0.300 Neut % (Auto) 64.8 Lymph % (Auto) 23.1 [place] % (Auto) 7.5 Eos % (Auto) 4.0 Baso % (Auto) 0.3 Absolute Neuts (auto) 4.2 Absolute Lymphs (auto) 1.50 Nucleated RBC % 0 Sodium 137 Potassium 3.8 Chloride 105 Carbon Dioxide 27.0 Anion Gap 5 BUN 9 Creatinine 0.71 Estim Creat Clear Calc 104.52 Est GFR (MDRD) Af Amer 121 Est GFR (MDRD) Non-Af 100 BUN/Creatinine Ratio 12.7 Glucose 102 Calcium 9.1 Total Bilirubin 0.40 AST 17 ALT 31 Alkaline Phosphatase 69 Total Protein 7.3 Albumin 3.6 Globulin 3.7 Albumin/Globulin Ratio 1.0 Radiography Diagnostic Testing: Clinical Impression(s) from Imaging Studies Abdomen/Pelvis CT 03/30/22 15:27 IMPRESSION: Status post hysterectomy with postoperative change in the pelvic fat at the site of the surgery. Several small fluid collections are seen at the operative site. This may represent postoperative hematoma or seroma. Follow-up recommended. Electronically Signed: Christiano Eduardo MD at 15:47 EST , Discharge Plan Triage Chief Complaint: Other, Pain/Inj ED Provider: Ashutosh Barajas Dx/Rx/DC Orders Clinical Impression: Postoperative seroma Instructions: ED Seroma, Postsurgical Prescriptions: No Action meclizine 25 mg tablet 25 mg PO BID PRN (Reason: dizziness) Qty: 30 1RF vitamin E mixed 400 unit capsule 800 unit PO .qd Qty: 60 5RF hydroxyzine pamoate 50 mg capsule 50 mg PO TID PRN (Reason: anxiety) Qty: 20 0RF ketoprofen 75 mg capsule 75 mg PO Q6H PRN (Reason: Migraine Symptoms) Qty: 100 0RF Rx Instructions: 1 cap PO at on set of headache max of 3 in 24 hours, max 20 per month levothyroxine 137 mcg tablet 137 mcg PO DAILY Qty: 90 1RF prochlorperazine maleate [Compazine] 10 mg tablet 10 mg PO BID PRN (Reason: Migraine Symptoms) Qty: 30 1RF ursodiol 300 mg capsule 300 mg PO BID Qty: 180 1RF amlodipine 5 mg tablet 5 mg PO DAILY Qty: 90 1RF oxycodone-acetaminophen [Percocet] 5-325 mg tablet 1 tab PO Q6H PRN (Reason: pain) 7 Days Qty: 28 0RF Primary Care Provider: Jose Alejandro London Referrals: Jose Alejandro London MD [Primary Care Provider] - Cassidy Moore MD [Med Staff - Active Staff] - [facility] appointment Disposition Disposition: Home, Self Care
--- NOTE | 2022-03-30 16:53 | NURSING ---
[id number] ALMANZA'S PHONE [id number] ALMANZA'S PHONE
[2022-03-30 17:35] VITALS: PULSE 82; RESP 15; O2SAT 98
== END 2022-03-30 17:35 | disposition home or self-care (01) ==
PROVIDERS: Emergency Medicine; Emergency Provider Emergency Medicine; PCP Internal Medicine; Visit Provider Emergency Medicine
DX: L76.32 Postprocedural hematoma of skin and subcutaneous tissue following other procedure (principal); I10 Essential (primary) hypertension; R10.2 Pelvic and perineal pain; G89.29 Other chronic pain; Z79.890 Hormone replacement therapy; Z79.899 Other long term (current) drug therapy; F17.210 Nicotine dependence, cigarettes, uncomplicated; Z90.710 Acquired absence of both cervix and uterus
CPT/HCPCS: 74177; 80053; 85025; 87086; 87088; 99283; Q9967; A4216

== ENCOUNTER → 2022-03-30 | Outpatient (CLI) | payer MEDICAID, SELFPAY | END | disposition home or self-care (01) | PROVIDERS: PCP Internal Medicine; Visit Provider Obstetrics & Gynecology | DX: R10.2 Pelvic and perineal pain (principal) | CPT/HCPCS: 87088; 87086 ==

== ENCOUNTER 2022-04-12 13:42 | Inpatient (IN) | payer MEDICAID, SELFPAY ==
[2022-04-12] VITALS (7 sets, daily range): BP systolic 98–123; BP diastolic 56–89; PULSE 76–106; RESP 15–18; TEMP 36.2–36.8; O2SAT 97–100; BMI 37.6; BMI 37.3
--- NOTE | 2022-04-12 15:34 | EX.ED.DYSGE1 ---
HPI History of Present Illness Chief Complaint: Shortness of Breath Detail of Chief Complaint: Not feeling well for about 3 days Informant: patient Narrative Narrative: Patient presents to the emergency department with multiple complaints of not feeling well. Patient states that 3 days ago she started to develop body aches and cough. Patient tells me she had a hysterectomy 3 weeks ago and had been doing really well and the day before started becoming more active and think she may have overdone it around the house because the following day she started feeling poorly again. She complains of lower abdominal pain. She describes dysuria. Patient has a cough and pain in her chest and back with breathing and cough. Patient was seen at urgent care today and had a fever up to 101.3 and was referred to the emergency department. Patient is on Macrobid for suspected UTI. Patient describes a dark color to her urine. [facility] Medical History Abdominal pain Acute bronchitis, unspecified Acute sinusitis, unspecified ADHD (attention deficit hyperactivity disorder), combined type Arthritis Back pain Back pain Bronchitis Cancer Cardiology follow-up encounter Cervical lymphadenopathy Cervical radiculopathy Chronic back pain Chronic low back pain Chronic RUQ pain Easy bruising Ectopic cardiac beats Essential hypertension Fatty liver Fibromyalgia NICOLÁS (generalized anxiety disorder) Almaz's thyroiditis Heartburn History of acne History of echocardiogram History of gestational diabetes History of pain when walking History of stress test Hypertension Hypocalcemia Injury of head and neck Left-sided low back pain with left-sided sciatica Localized swelling, mass and lump, neck Melanoma Migraine without aura and with status migrainosus, not intractable Morbid obesity MARCELINO (nonalcoholic steatohepatitis) Numbness and tingling of both upper extremities Numbness of both lower extremities Palpitations Post herpetic neuralgia Restless legs Right femoral fracture RUQ abdominal pain Syncope Thyroid disease Tinnitus Tobacco abuse Vertigo Home Medications vitamin E mixed 400 unit capsule 800 unit PO .qd #60 caps 07/07/21 [Rx Last Taken Unknown] meclizine 25 mg tablet 25 mg PO BID PRN dizziness #30 tabs 08/11/21 [Rx Last Taken Unknown] hydroxyzine pamoate 50 mg capsule 50 mg PO TID PRN anxiety #20 caps 02/11/22 [Rx Last Taken Unknown] ketoprofen 75 mg capsule 75 mg PO Q6H PRN Migraine Symptoms #100 caps 02/11/22 [Rx Last Taken Unknown] levothyroxine 137 mcg tablet 137 mcg PO DAILY #90 tabs 02/11/22 [Rx Last Taken 03/22/22] prochlorperazine maleate 10 mg tablet (Compazine) 10 mg PO BID PRN Migraine Symptoms #30 tabs 02/11/22 [Rx Last Taken Unknown] ursodiol 300 mg capsule 300 mg PO BID #180 caps 02/11/22 [Rx Last Taken Unknown] amlodipine 5 mg tablet 5 mg PO DAILY #90 tabs 02/23/22 [Rx Last Taken 03/22/22] oxycodone-acetaminophen 5 mg-325 mg tablet (Percocet) 1 tab PO Q6H PRN pain 7 days #28 tabs 04/05/22 [Rx Last Taken Unknown] Allergy/AdvReac Type Severity Reaction Status Date / Time promethazine [From Phenergan] Allergy Unknown Unknown Verified 04/12/22 13:43 latex Allergy Itching Verified 04/12/22 13:43 naproxen Allergy Unknown Verified 04/12/22 13:43 Penicillins [PCN] Allergy Rash Verified 04/12/22 13:43 escitalopram [From Lexapro] AdvReac Intermediate Lightheaded Verified 04/12/22 13:43 sertraline [From Zoloft] AdvReac Intermediate Dizzy & Verified 04/12/22 13:43 Headache dicyclomine [From Bentyl] AdvReac Unknown Unknown Verified 04/12/22 13:43 ondansetron HCl AdvReac Unknown Migraine Verified 04/12/22 13:43 [From Zofran (as hydrochloride)] hydrocodone [From Vicodin] AdvReac Other Verified 04/12/22 13:43 ketorolac [From Toradol] AdvReac Other Verified 04/12/22 13:43 Family History Grandmother Diabetes Other Family history of skin cancer High cholesterol Hypertension Surgical History History of surgery on arm History of thyroidectomy History of total vaginal hysterectomy (TVH) (~03/22/22) Social History Smoking Status: Current every day smoker tobacco type: cigarettes Tobacco: How many years used: 13 Electronic Cigarette Use: not used second hand exposure: No alcohol intake: current alcohol intake frequency: holidays/special occasions only substance use type: does not use caffeine: Yes what type of physical activity do you participate in: none seatbelt use: always do you feel safe at home: Yes additional social history: emmy HAMILTON ROS ED Review of Systems ROS Unobtainable: other Constitutional Constitutional ED: Reports lethargy; Denies chills, fever(s), sweats or weight loss Eyes Eyes: Denies blurry vision, change in vision or diplopia ENT ENT ED: Denies rhinorrhea or sore throat Cardiovascular Cardiovascular: Reports chest pain; Denies orthopnea or racing heartbeat Respiratory/Chest Respiratory/Chest: Reports cough and dyspnea; Denies dyspnea on exertion, orthopnea or sputum Gastrointestinal Gastrointestinal: Reports abdominal pain and nausea; Denies diarrhea or vomiting Genitourinary Genitourinary ED: Reports dysuria; Denies hematuria or urinary frequency Musculoskeletal Musculoskeletal: Denies arthralgias, back pain, myalgias or neck pain Integumentary Denies abscess, Abrasions or rash Neurologic Neurologic: Denies headache(s) or weakness Psychiatric Psychiatric: Denies anxiety, depression or suicidal thoughts Endocrine Endocrinology: Denies polydipsia, polyphagia or polyuria Hematologic/Lymphatic Hematologic/Lymphatic: Denies easy bleeding, easy bruising or lymphadenopathy Allergic/Immunologic Allergic/Immunologic ED: Denies mouth swelling, tongue swelling or urticaria EXAM Physical Exam Const Vital Signs: 04/12/22 13:43 04/12/22 16:52 04/12/22 16:52 Temperature 97.2 F L Temperature Source Temporal Pulse Rate 106 H 86 Respiratory Rate 18 15 Respiratory Effort Normal Respiratory Depth Normal Respiratory Pattern Normal Blood Pressure 121/89 H Blood Pressure Mean 99 Pulse Ox 100 98 Oxygen Delivery Method Room Air Room Air Room Air 04/12/22 18:06 Temperature Temperature Source Pulse Rate 87 Respiratory Rate 15 Respiratory Effort Respiratory Depth Respiratory Pattern Blood Pressure 123/74 H Blood Pressure Mean 90 Pulse Ox 98 Oxygen Delivery Method Room Air Positive well nourished and well developed General Appearance ED: well developed and NAD HEENT Reports TM's clear and moist mucous membranes normocephalic and atraumatic; Negative for trauma or tenderness Tympanic Membrane ED: Yes TM's clear Eyes PERRL and EOMs intact bilaterally General Eye ED: Negative for pale conjunctiva or scleral icterus Neck no lymphadenopathy, supple and no JVD General: Negative for tenderness Chest Wall inspection of chest normal and palpation of chest normal Chest: Negative for tenderness Resp normal respiratory effort and clear to auscultation bilaterally Effort and Inspection: Negative for respiratory distress or pain with movement Auscultation: Negative for rhonchi, wheezes or diminished lung sounds Cardio regular rate, regular rhythm, S1 normal heart sound, S2 normal heart sound and no murmurs Peripheral Pulses: pulses 2+ throughout GI normal to inspection, nondistended, normoactive bowel sounds, soft to palpation, non-distended and no masses GI Narrative: Diffuse tenderness of the lower abdomen. There is no rebound, rigidity, or peritoneal signs. He abdominal incision looks well-healed and without evidence of erythema or cellulitic changes. Back/Spine no CVA tenderness and no thoracic nor lumbar tenderness Extremity normal to inspection General Extremety ED: Negative for edema General Extremity: Negative for edema Neuro oriented x3, CN's II-XII intact bilaterally, no sensory deficits noted and gait normal Sensorium / Orientation: awake, alert, oriented to person, oriented to place and oriented to time Motor Exam: strength 5/5 throughout and strength abnormal Psych mental status grossly normal Skin no rashes or lesions noted and no wounds MDM MDM MDM Narrative Medical decision making narrative: IV line established on arrival. Patient did not want anything for nausea or pain. Lab work-up showed a normal white count of 8.3. She had 77% neutrophils. D-dimer was elevated 1.56. Chemistries unremarkable other than a slightly depressed potassium of 3.3. Lactate was 1.6. Urinalysis was normal. Patient had a negative COVID and influenza rapid test. CTA of the chest obtained was negative for PE or dissection. CT of the abdomen and pelvis with IV contrast showed an intra-abdominal abscess measuring 59 x 47 mm that appears to be larger when compared with prior CT scan from March 30. Case discussed with patient's [employer] who will evaluate patient for admission. I started patient on Levaquin and Flagyl given her pen allergy. Lab Data Attestation: I reviewed the patient's lab results. Labs: Laboratory Results - last 24 hr 04/12/22 04/12/22 04/12/22 15:50 15:50 15:50 WBC 8.3 RBC 4.40 Hgb 11.9 L Hct 36.2 L MCV 82.3 MCH 27.0 MCHC 32.9 RDW Std Deviation 37.9 RDW Coeff of Mikel 12.4 Plt Count 255 MPV 10.4 Immature Gran % (Auto) 0.200 Neut % (Auto) 76.7 H Lymph % (Auto) 11.6 L [place] % (Auto) 10.3 H Eos % (Auto) 0.8 Baso % (Auto) 0.4 Absolute Neuts (auto) 6.4 Absolute Lymphs (auto) 0.96 Nucleated RBC % 0 D-Dimer Quant (PE/DVT) 1.56 H* Sodium 137 Potassium 3.3 L Chloride 102 Carbon Dioxide 28.0 Anion Gap 7 BUN 5 L Creatinine 0.70 Estim Creat Clear Calc 101.90 Est GFR (MDRD) Af Amer 122 Est GFR (MDRD) Non-Af 101 BUN/Creatinine Ratio 7.1 L Glucose 109 H Lactic Acid Calcium 9.0 Urine Color Urine Clarity Urine pH Ur Specific [place] Urine Protein Urine Glucose (UA) Urine Ketones Urine Occult Blood Urine Nitrite Urine Bilirubin Urine Urobilinogen Ur Leukocyte Esterase Urine RBC Urine WBC Ur Squamous Epith Cells Urine Bacteria Urine Mucus 04/12/22 04/12/22 15:50 17:03 WBC RBC Hgb Hct MCV MCH MCHC RDW Std Deviation RDW Coeff of Mikel Plt Count MPV Immature Gran % (Auto) Neut % (Auto) Lymph % (Auto) [place] % (Auto) Eos % (Auto) Baso % (Auto) Absolute Neuts (auto) Absolute Lymphs (auto) Nucleated RBC % D-Dimer Quant (PE/DVT) Sodium Potassium Chloride Carbon Dioxide Anion Gap BUN Creatinine Estim Creat Clear Calc Est GFR (MDRD) Af Amer Est GFR (MDRD) Non-Af BUN/Creatinine Ratio Glucose Lactic Acid 1.6 Calcium Urine Color Yellow Urine Clarity Clear Urine pH 6.5 Ur Specific [place] 1.010 Urine Protein Negative Urine Glucose (UA) Normal Urine Ketones Negative Urine Occult Blood Negative Urine Nitrite Negative Urine Bilirubin Negative Urine Urobilinogen Normal Ur Leukocyte Esterase 25 H Urine RBC 0 SEEN Urine WBC 0 SEEN Ur Squamous Epith Cells 0-5 SEEN Urine Bacteria 0 SEEN Urine Mucus 0 SEEN Radiography Diagnostic Testing: Clinical Impression(s) from Imaging Studies Chest X-Ray 04/12/22 15:49 IMPRESSION: No acute cardiopulmonary abnormality. No interval change. Electronically Signed: Ang Kohler MD at 16:11 EST , Chest CTA 04/12/22 17:04 IMPRESSION: Negative CTA chest. Electronically Signed: Andrea Conway MD at 17:52 EST , Abdomen/Pelvis CT 04/12/22 17:05 IMPRESSION: (NOT LISTED IN ORDER OF SIGNIFICANCE) Pelvic abscess previously described has slightly enlarged in size. Other findings as above. Electronically Signed: Andrea Conway MD at 17:58 EST , Discharge Plan Triage Chief Complaint: Shortness of Breath ED Provider: Adele Aguila Dx/Rx/DC Orders Clinical Impression: Postoperative abscess, Abdominal pain, Chest pain, History of hypertension Prescriptions: No Action meclizine 25 mg tablet 25 mg PO BID PRN (Reason: dizziness) Qty: 30 1RF oxycodone-acetaminophen [Percocet] 5-325 mg tablet 1 tab PO Q6H PRN (Reason: pain) 7 Days Qty: 28 0RF vitamin E mixed 400 unit capsule 800 unit PO .qd Qty: 60 5RF hydroxyzine pamoate 50 mg capsule 50 mg PO TID PRN (Reason: anxiety) Qty: 20 0RF ketoprofen 75 mg capsule 75 mg PO Q6H PRN (Reason: Migraine Symptoms) Qty: 100 0RF Rx Instructions: 1 cap PO at on set of headache max of 3 in 24 hours, max 20 per month levothyroxine 137 mcg tablet 137 mcg PO DAILY Qty: 90 1RF prochlorperazine maleate [Compazine] 10 mg tablet 10 mg PO BID PRN (Reason: Migraine Symptoms) Qty: 30 1RF ursodiol 300 mg capsule 300 mg PO BID Qty: 180 1RF amlodipine 5 mg tablet 5 mg PO DAILY Qty: 90 1RF Primary Care Provider: Jose Alejandro London Referrals: Jose Alejandro London MD [Primary Care Provider] - Disposition Disposition: Acute Care Hospital [facility]
--- NOTE | 2022-04-12 15:49 | RAD_ITS ---
EXAM: XR CHEST, 1 VIEW CLINICAL INDICATION: cough TECHNIQUE: Frontal view of the chest. This report was created using [employer] report generation technology. COMPARISON: XR Chest dated 01/23/2021 FINDINGS: LUNGS AND PLEURAL SPACES: Residual scarring at the right lung base. No pneumothorax. No effusion. HEART: Normal heart size. MEDIASTINUM: No mediastinal or hilar mass. BONES/JOINTS: No acute abnormality. SOFT TISSUES: Normal. RAD/Chest 1 View (Portable) IMPRESSION: No acute cardiopulmonary abnormality. No interval change. Electronically Signed: Ang Kohler MD at 16:11 EST ,
[2022-04-12 16:13] LABS: Absolute Lymphocyte Count 0.96 X10^3/uL (0.83-4.51); Absolute Neutrophil Count 6.4 X10^3/uL (2.0-7.7); Basophil# 0.03 X10^3/uL; Basophil% 0.4 % (0-1); Eosinophil# 0.07 X10^3/uL; Eosinophils% 0.8 % (0-5); Hematocrit 36.2 % (37-47); Hemoglobin 11.9 g/dL (12.0-15.0); Lymphocyte # 0.96 X10^3/ul (0.83-4.51); Lymphocyte % 11.6 % (19-41); Mean Corp Hgb Conc 32.9 g/dL (32-36); Mean Corpuscular Volume 82.3 fL (81-99); Mean Platelet Vol. 10.4 fl (6.2-12.0); Monocyte# 0.85 X10^3/uL; Monocyte% 10.3 % (0-10); NRBC Flagged by Analyzer 0 % (0-5); Neutrophil # 6.35 X10^3/uL (2.7-7.7); Neutrophil % 76.7 % (47-70); Platelet Count 255 K/mm3 (150-450); RBC Distribution Width CV 12.4 % (11.6-14.6); RBC Distribution Width SD 37.9 fl (35.1-43.9); White Blood Count 8.3 K/mm3 (4.4-11.0)
[2022-04-12 16:25] LABS: Anion Gap 7 (5-15); BUN 5 mg/dL (7-18); BUN/Creat Ratio 7.1 RATIO (10-20); Chloride 102 mmol/L (98-107); EST Glomerular Filtration Rate 101 mL/min (>60); Est Glom Filt Rate - Afr Amer 122 mL/min (>60); Glucose 109 mg/dL (74-106); Potassium 3.3 mmol/L (3.5-5.1); Sodium Level 137 mmol/L (136-145)
[2022-04-12] MEDS: 0.9% Normal Saline 1,000 ML 150 ML IV (16:32)
[2022-04-12 16:34] LABS: Lactic Acid 1.6 mmol/L (0.4-1.9)
--- NOTE | 2022-04-12 17:04 | CT_ITS ---
EXAM: CT ANGIOGRAPHY CHEST WITHOUT AND WITH INTRAVENOUS CONTRAST CLINICAL INDICATION: dyspnea, elevated d-dimer TECHNIQUE: Helically acquired angiography images were obtained of the chest without and with intravenous contrast. This CT exam was performed using one or more of the following dose reduction techniques: automated exposure control, adjustment of the mA and/or kV according to patient size, and/or use of iterative reconstruction technique. This report was created using ebindle report generation technology. MIP reconstructed images were created and reviewed. CONTRAST: IV 100mL Isovue-370 RADIATION DOSE: CTDIvol = 17.32 mGy, DLP = 1884.00 mGy-cm COMPARISON: 03.04.22. FINDINGS: PULMONARY ARTERIES: Unremarkable. Normal in caliber. No evidence of pulmonary embolism. AORTA: Unremarkable. Normal in caliber. No evidence of dissection. GREAT VESSELS OF AORTIC ARCH: Unremarkable. Normal in caliber. No evidence of dissection. LUNGS AND PLEURAL SPACES: Unremarkable. No mass. No consolidation or edema. No pleural effusion or thickening. No pneumothorax. HEART: Unremarkable. Heart size is normal. No pericardial effusion. No signs of right heart strain, ratio of right ventricle to left ventricle measures less than 1. MEDIASTINUM: Unremarkable. No mediastinal or hilar adenopathy. Esophagus is unremarkable. No hiatal hernia. THYROID: Unremarkable. No thyroid lesions. BONES/JOINTS: Unremarkable. No suspicious lytic or blastic abnormality. CT/CTA Chest W/WO Contrast IMPRESSION: Negative CTA chest. Electronically Signed: Andrea Conway MD at 17:52 EST ,
--- NOTE | 2022-04-12 17:05 | CT_ITS ---
STUDY: CT Abdomen And Pelvis W/ Contrast Injection 04/12/2022 5:55 PM REASON FOR EXAM: Female, 36 years old. ABDOMINAL PAIN post op abdominal pain TECHNIQUE: Transaxial images were obtained without oral contrast, and with IV 100mL Isovue-370 intravenous contrast. Individualized dose optimization techniques were used for this CT. COMPARISON: 03.30.22 FINDINGS: The visualized lung bases are unremarkable. The visualized portions of the heart are within normal limits. Unremarkable liver. Unremarkable gallbladder and extrahepatic biliary system. Unremarkable spleen. Unremarkable pancreas. Unremarkable bilateral adrenal glands. No acute findings of the right kidney. No acute findings of the left kidney. Unremarkable visualized stomach. Unremarkable small intestine. Unremarkable colon. The appendix is visualized and appears unremarkable. There are no acute findings of the abdominal aorta. Unremarkable inferior vena cava. Subcentimeter mesenteric lymph nodes. Unremarkable urinary bladder. There is absence of the uterus consistent with a prior hysterectomy. Bilobed abscess is 59x 47 mm in size in the pelvis. This contains fluid and air. There is metallic hardware noted in the right hip. There is an umbilical hernia containing fat. There are diffuse degenerative changes of the visualized lumbar spine. CT/Abdomen/Pelvis W IV Cont ONLY IMPRESSION: (NOT LISTED IN ORDER OF SIGNIFICANCE) Pelvic abscess previously described has slightly enlarged in size. Other findings as above. Electronically Signed: Andrea Conway MD at 17:58 EST ,
[2022-04-12 17:08] LABS: Bacteria 0 SEEN /hpf (None Seen); Mucous, Urine 0 SEEN /hpf (<or=2+); Red Blood Cells-Urine 0 SEEN /hpf (0-5); White Blood Cells 0 SEEN /hpf (0-5)
[2022-04-12 17:28] LABS: Color, Urine Yellow (Yellow); Glucose, Dipstick Normal (Normal); Ketone-Dipstick Negative (Negative); Leukocyte Esterase-Dipstick 25 /ul (Negative); Nitrite-Dipstick Negative (Negative); Occult Blood-Urine Negative /ul (Negative); Protein-Dipstick Negative (Negative); Urine Bilirubin Dipstick Negative (Negative); Urine Clarity Clear (Clear); Urine Urobilinogen Normal (Normal); Urine pH 6.5 (5.0 - 8.0)
[2022-04-12 18:20] LABS: Squamous Epithelial Cells - UA 0-5 SEEN /hpf (5-10)
--- NOTE | 2022-04-12 18:37 | HP.PCM_ITS ---
HPI - General General Date of Admission: 04/12/22 HPI Narrative AUSTIN RIVERA, is a 36 F who presents to the ER with increased pain and discomfort, on ct scan shows enlarging pelvic fluid collection suspicious for abscess, borderline temps with 99 and 99.5 readings. she feels some CP and sob occasionally but had a negative chest CT. [facility] Medical History (Updated 04/12/22 @ 21:05 by Nancy Newton) Abdominal pain Acute bronchitis, unspecified Acute sinusitis, unspecified ADHD (attention deficit hyperactivity disorder), combined type Arthritis Back pain Back pain Bronchitis Cancer Cardiology follow-up encounter Cervical lymphadenopathy Cervical radiculopathy Chronic back pain Chronic low back pain Chronic pain Chronic RUQ pain Depression Easy bruising Ectopic cardiac beats Essential hypertension Fatty liver Fibromyalgia NICOLÁS (generalized anxiety disorder) Almaz's thyroiditis Heartburn History of acne History of echocardiogram History of gestational diabetes History of pain when walking History of stress test Hypertension Hypocalcemia Injury of head and neck Left-sided low back pain with left-sided sciatica Localized swelling, mass and lump, neck Melanoma Migraine without aura and with status migrainosus, not intractable Morbid obesity MARCELINO (nonalcoholic steatohepatitis) Numbness and tingling of both upper extremities Numbness of both lower extremities Palpitations Post herpetic neuralgia Restless legs Right femoral fracture RUQ abdominal pain Syncope Thyroid disease Tinnitus Tobacco abuse Vertigo Home Medications meclizine 25 mg tablet 25 mg PO BID PRN dizziness #30 tabs 08/11/21 [Rx Last Taken Unknown] hydroxyzine pamoate 50 mg capsule 50 mg PO TID PRN anxiety #20 caps 02/11/22 [Rx Last Taken Unknown] ketoprofen 75 mg capsule 75 mg PO Q6H PRN Migraine Symptoms #100 caps 02/11/22 [Rx Last Taken Unknown] prochlorperazine maleate 10 mg tablet (Compazine) 10 mg PO BID PRN Migraine Symptoms #30 tabs 02/11/22 [Rx Last Taken Unknown] oxycodone-acetaminophen 5 mg-325 mg tablet (Percocet) 1 tab PO Q6H PRN pain 7 days #28 tabs 04/05/22 [Rx Last Taken Unknown] amlodipine 5 mg tablet 5 mg PO DAILY bp 04/12/22 [History Last Taken Unknown] levothyroxine 137 mcg tablet 137 mcg PO DAILY synthroid 04/12/22 [History Last Taken Unknown] ursodiol 300 mg capsule 300 mg PO BID thyroid 04/12/22 [History Last Taken Unknown] vitamin E mixed 400 unit capsule 800 unit PO .qd supplement 04/12/22 [History Last Taken Unknown] Allergy/AdvReac Type Severity Reaction Status Date / Time promethazine [From Phenergan] Allergy Unknown Unknown Verified 04/12/22 13:43 latex Allergy Itching Verified 04/12/22 13:43 naproxen Allergy Unknown Verified 04/12/22 13:43 Penicillins [PCN] Allergy Rash Verified 04/12/22 13:43 escitalopram [From Lexapro] AdvReac Intermediate Lightheaded Verified 04/12/22 13:43 sertraline [From Zoloft] AdvReac Intermediate Dizzy & Verified 04/12/22 13:43 Headache dicyclomine [From Bentyl] AdvReac Unknown Unknown Verified 04/12/22 13:43 ondansetron HCl AdvReac Unknown Migraine Verified 04/12/22 13:43 [From Zofran (as hydrochloride)] hydrocodone [From Vicodin] AdvReac Other Verified 04/12/22 13:43 ketorolac [From Toradol] AdvReac Other Verified 04/12/22 13:43 Family History Grandmother Diabetes Other Family history of skin cancer High cholesterol Hypertension Surgical History History of surgery on arm History of thyroidectomy History of total vaginal hysterectomy (TVH) (~03/22/22) Social History Smoking Status: Current every day smoker tobacco type: cigarettes Tobacco: How many years used: 13 Electronic Cigarette Use: not used second hand exposure: No alcohol intake: current alcohol intake frequency: holidays/special occasions only substance use type: does not use caffeine: Yes what type of physical activity do you participate in: none seatbelt use: always do you feel safe at home: Yes additional social history: emmy HAMILTON Constitutional Constitutional: Reports systems reviewed and no addt'l complaints, except as documented and fatigue; Denies as per HPI, change in weight, fever(s), malaise, weakness or other Eyes Eyes: Reports systems reviewed and no addt'l complaints, except as documented; Denies as per HPI, change in vision or other ENT HEENT: Reports systems reviewed and no addt'l complaints, except as documented Respiratory/Chest Respiratory/Chest: Reports systems reviewed and no addt'l complaints, except as documented and as per HPI Gastrointestinal Gastrointestinal: Reports as per HPI, bloating and cramping; Denies constipation or diarrhea Genitourinary Genitourinary: Reports as per HPI; Denies dysuria or flank pain Musculoskeletal Musculoskeletal: Reports systems reviewed and no addt'l complaints, except as documented and back pain Neurologic Neurologic: Reports systems reviewed and no addt'l complaints, except as documented Psychiatric Psychiatric: Reports systems reviewed and no addt'l complaints, except as documented Endocrine Endocrinology: Reports systems reviewed and no addt'l complaints, except as documented Hematologic/Lymphatic Hematologic/Lymphatic: Reports systems reviewed and no addt'l complaints, except as documented Vital Signs Vital Signs Vital Signs: 04/12/22 13:43 04/12/22 16:52 04/12/22 16:52 Temperature 97.2 F L Temperature Source Temporal Pulse Rate 106 H 86 Respiratory Rate 18 15 Respiratory Effort Normal Respiratory Depth Normal Respiratory Pattern Normal Blood Pressure 121/89 H Blood Pressure Mean 99 Pulse Ox 100 98 Oxygen Delivery Method Room Air Room Air Room Air 04/12/22 18:06 Temperature Temperature Source Pulse Rate 87 Respiratory Rate 15 Respiratory Effort Respiratory Depth Respiratory Pattern Blood Pressure 123/74 H Blood Pressure Mean 90 Pulse Ox 98 Oxygen Delivery Method Room Air Weight Weight: 226 lb 3.108 oz Body Mass Index (BMI) 37.6 Physical Exam Const alert, oriented x3 and no apparent distress HEENT normocephalic Head and Scalp: atraumatic Eyes EOMs intact bilaterally and conjunctivae normal Neck full ROM, no lymphadenopathy, supple and thyroid normal General: trachea midline Lymph Lymphatic: no lymphadenopathy noted Resp normal respiratory effort, no retractions, no use of accessory muscles and clear to auscultation bilaterally Cardio regular rhythm GI normal to inspection, nondistended, normoactive bowel sounds, soft to palpation, non-distended and no masses GI Narrative: tender to palpation in lower abdomen Inspection: Negative for abdominal distention Back/Spine no CVA tenderness Extremity normal to inspection Skin no rashes or lesions noted Neuro moves all extremities and deep tendon reflexes 2+ bilaterally Psych mental status grossly normal Results Lab / Micro Data Result Diagrams: 04/12/22 15:50 04/12/22 15:50 Labs: Laboratory Results - last 24 hr 04/12/22 15:50: WBC 8.3, RBC 4.40, Hgb 11.9 L, Hct 36.2 L, MCV 82.3, MCH 27.0, MCHC 32.9, RDW Std Deviation 37.9, RDW Coeff of Mikel 12.4, Plt Count 255, MPV 10.4, Immature Gran % (Auto) 0.200, Neut % (Auto) 76.7 H, Lymph % (Auto) 11.6 L, [place] % (Auto) 10.3 H, Eos % (Auto) 0.8, Baso % (Auto) 0.4, Absolute Neuts (auto) 6.4, Absolute Lymphs (auto) 0.96, Nucleated RBC % 0 04/12/22 15:50: D-Dimer Quant (PE/DVT) 1.56 H* 04/12/22 15:50: Sodium 137, Potassium 3.3 L, Chloride 102, Carbon Dioxide 28.0, Anion Gap 7, BUN 5 L, Creatinine 0.70, Estim Creat Clear Calc 101.90, Est GFR (MDRD) Af Amer 122, Est GFR (MDRD) Non-Af 101, BUN/Creatinine Ratio 7.1 L, Glucose 109 H, Calcium 9.0 04/12/22 15:50: Lactic Acid 1.6 04/12/22 17:03: Urine Color Yellow, Urine Clarity Clear, Urine pH 6.5, Ur Specific [place] 1.010, Urine Protein Negative, Urine Glucose (UA) Normal, Urine Ketones Negative, Urine Occult Blood Negative, Urine Nitrite Negative, Urine Bilirubin Negative, Urine Urobilinogen Normal, Ur Leukocyte Esterase 25 H, Urine RBC 0 SEEN, Urine WBC 0 SEEN, Ur Squamous Epith Cells 0-5 SEEN, Urine Bacteria 0 SEEN, Urine Mucus 0 SEEN Micro: Microbiology 04/12/22 15:53 Nasal Secretion SARS-CoV-2 & FLU Antigen (Rapid) - Final Radiology Impression Chest X-Ray 04/12/22 15:49 IMPRESSION: No acute cardiopulmonary abnormality. No interval change. Electronically Signed: Ang Kohler MD at 16:11 EST , Chest CTA 04/12/22 17:04 IMPRESSION: Negative CTA chest. Electronically Signed: Andrea Conway MD at 17:52 EST , Abdomen/Pelvis CT 04/12/22 17:05 IMPRESSION: (NOT LISTED IN ORDER OF SIGNIFICANCE) Pelvic abscess previously described has slightly enlarged in size. Other findings as above. Electronically Signed: Andrea Conway MD at 17:58 EST , Assessment & Plan Assessment/Plan (1) Postoperative abscess: PLAN: admit for IV Antibiotics, consult for possible IR drainage. (2) Postoperative pain: (3) Abdominal pain: (4) Hypertension: (5) Type 2 diabetes mellitus: (6) Tobacco abuse: (7) Chronic back pain: QUALIFIERS: Back pain location: back pain in other location Qualified Code(s): M54.9 - Dorsalgia, unspecified; G89.29 - Other chronic pain (8) MARCELINO (nonalcoholic steatohepatitis): (9) DANA (obstructive sleep apnea): (10) Class II obesity: PLAN: Plan admit to hospital for management, consult IR in am. npo after midnight and po or IV pain control, SCDs. Charges/Coding Visit Charges Inpatient E&M: 82204 Init Hosp L3
[2022-04-12] MEDS: metroNIDAZOLE 500 MG/100 ML BAG 100 MG IV (18:54)
[2022-04-12] MEDS: levoFLOXacin IV 750 MG/150 ML BAG 100 MG IV (19:59)
[2022-04-12] MEDS: Potassium Chloride IVPB 40 MEQ 100 MEQ IV BOLUS ×2 (21:42→23:38)
[2022-04-12] MEDS: Famotidine 20 MG Tablet PO (22:05)
[2022-04-12] MEDS: Ursodiol 250 MG Tablet PO (22:05)
[2022-04-12] MEDS: oxyCODONE 5 MG Tablet PO (22:05)
[2022-04-13] VITALS (7 sets, daily range): BP systolic 99–130; BP diastolic 54–73; PULSE 74–89; RESP 14–18; TEMP 36.9–37.5; O2SAT 95–100
[2022-04-13 00:19] LABS: D-Dimer Quantitative (DVT/PE) 1.56 FEU/ug/m (0.27-0.49)
[2022-04-13 00:40] LABS: Bedside Glucose 127 mg/dL (74-106)
[2022-04-13] MEDS: Potassium Chloride IVPB 40 MEQ 100 MEQ IV BOLUS ×2 (00:59→04:06)
[2022-04-13] MEDS: oxyCODONE 5 MG Tablet PO ×5 (02:24→21:48)
[2022-04-13] MEDS: Levothyroxine 137 MCG Tablet PO (05:44)
[2022-04-13] MEDS: metroNIDAZOLE 500 MG/100 ML BAG 100 MG IV ×3 (05:44→21:01)
--- NOTE | 2022-04-13 06:35 | PCM.PN.OB ---
Subjective Subjective Patient feeling better and with noticable improvement. pain controlled, didn't sleep overnight. Denies chest pain, shortness of breath, calf pain/swelling, fevers, chills, lightheadedness. Objective Data Objective Data Vital Signs: Vital Signs Temp Pulse Resp BP Pulse Ox O2 Del Method 99.3 F H 88 14 120/70 99 Room Air 04/13/22 02:30 04/13/22 02:30 04/13/22 02:30 04/13/22 02:30 04/13/22 02:30 04/13/22 02:30 Oxygen Delivery Method Room Air Weight: 224 lb 10.417 oz Body Mass Index (BMI) 37.3 Intake & Output: Intake and Output for Last 24 Hours 04/11/22 04/12/22 04/13/22 23:59 23:59 23:59 Intake Total 326.67 / 326.67 1300 / 1300 Balance 326.67 / 326.67 1300 / 1300 Lab / Micro Data Result Diagrams: 04/12/22 15:50 04/12/22 15:50 Labs: Laboratory Results - last 24 hr 04/12/22 15:50: WBC 8.3, RBC 4.40, Hgb 11.9 L, Hct 36.2 L, MCV 82.3, MCH 27.0, MCHC 32.9, RDW Std Deviation 37.9, RDW Coeff of Mikel 12.4, Plt Count 255, MPV 10.4, Immature Gran % (Auto) 0.200, Neut % (Auto) 76.7 H, Lymph % (Auto) 11.6 L, [place] % (Auto) 10.3 H, Eos % (Auto) 0.8, Baso % (Auto) 0.4, Absolute Neuts (auto) 6.4, Absolute Lymphs (auto) 0.96, Nucleated RBC % 0 04/12/22 15:50: D-Dimer Quant (PE/DVT) 1.56 H* 04/12/22 15:50: Sodium 137, Potassium 3.3 L, Chloride 102, Carbon Dioxide 28.0, Anion Gap 7, BUN 5 L, Creatinine 0.70, Estim Creat Clear Calc 101.90, Est GFR (MDRD) Af Amer 122, Est GFR (MDRD) Non-Af 101, BUN/Creatinine Ratio 7.1 L, Glucose 109 H, Calcium 9.0 11/22/22 15:50: Lactic Acid 1.6 04/12/22 17:03: Urine Color Yellow, Urine Clarity Clear, Urine pH 6.5, Ur Specific [place] 1.010, Urine Protein Negative, Urine Glucose (UA) Normal, Urine Ketones Negative, Urine Occult Blood Negative, Urine Nitrite Negative, Urine Bilirubin Negative, Urine Urobilinogen Normal, Ur Leukocyte Esterase 25 H, Urine RBC 0 SEEN, Urine WBC 0 SEEN, Ur Squamous Epith Cells 0-5 SEEN, Urine Bacteria 0 SEEN, Urine Mucus 0 SEEN 04/12/22 22:12: POC Glucose 127 H Micro: Microbiology 04/12/22 15:53 Nasal Secretion SARS-CoV-2 & FLU Antigen (Rapid) - Final Radiography Diagnostic Testing: Radiology Impression Chest X-Ray 04/12/22 15:49 IMPRESSION: No acute cardiopulmonary abnormality. No interval change. Electronically Signed: Ang Kohler MD at 16:11 EST , Chest CTA 04/12/22 17:04 IMPRESSION: Negative CTA chest. Electronically Signed: Andrea Conway MD at 17:52 EST , Abdomen/Pelvis CT 04/12/22 17:05 IMPRESSION: (NOT LISTED IN ORDER OF SIGNIFICANCE) Pelvic abscess previously described has slightly enlarged in size. Other findings as above. Electronically Signed: Andrea Conway MD at 17:58 EST , ROS Constitutional Constitutional: Reports systems reviewed and no addt'l complaints, except as documented Cardiovascular Cardiovascular: Reports systems reviewed and no addt'l complaints, except as documented Respiratory/Chest Respiratory/Chest: Reports systems reviewed and no addt'l complaints, except as documented Gastrointestinal Gastrointestinal: Reports systems reviewed and no addt'l complaints, except as documented Physical Exam Const alert, oriented x3 and no apparent distress HEENT Head and Scalp: atraumatic Resp normal respiratory effort GI soft to palpation GI Narrative: mild tender lower abdomen Assessment & Plan (1) Type 2 diabetes mellitus: COMMENT: SSI humalog ordered, diabetic diet (2) S/P vaginal hysterectomy: COMMENT: tvh bs left oophorectomy mini lap due to bleeding (3) Postoperative abscess: COMMENT: admit for IV ceftriaxone and flagyl, consult IR for CT guided drainage. (4) Hypertension: COMMENT: home meds ordered (5) Class II obesity: (6) MARCELINO (nonalcoholic steatohepatitis): (7) Tobacco abuse:
[2022-04-13 06:59] LABS: Absolute Neutrophil Count 5.1 X10^3/uL (2.0-7.7); Basophil# 0.02 X10^3/uL; Basophil% 0.3 % (0-1); Eosinophil# 0.11 X10^3/uL; Eosinophils% 1.6 % (0-5); Hematocrit 33.4 % (37-47); Hemoglobin 11.2 g/dL (12.0-15.0); Lymphocyte % 11.8 % (19-41); Mean Corp Hgb Conc 33.5 g/dL (32-36); Mean Corpuscular Hgb 27.7 pg (27.0-32.0); Mean Corpuscular Volume 82.7 fL (81-99); Mean Platelet Vol. 10.2 fl (6.2-12.0); Monocyte# 0.77 X10^3/uL; Monocyte% 11.3 % (0-10); NRBC Flagged by Analyzer 0 % (0-5); Neutrophil # 5.07 X10^3/uL (2.7-7.7); Neutrophil % 74.6 % (47-70); Platelet Count 217 K/mm3 (150-450); RBC Distribution Width CV 12.5 % (11.6-14.6); RBC Distribution Width SD 38.1 fl (35.1-43.9); Red Blood Count 4.04 M/mm3 (4.2-5.4); White Blood Count 6.8 K/mm3 (4.4-11.0)
[2022-04-13 07:01] LABS: International Normalized Ratio 1.2; Prothrombin Time (Protime)PT. 14.4 SECONDS (11.7-14.9)
[2022-04-13 07:19] LABS: ALB/GLOB Ratio 0.7 RATIO (0.9-2.4); AST(SGOT) 11 U/L (15-37); Alanine Aminotransfer ALT/SGPT 18 U/L (13-56); Albumin, Serum 2.7 g/dL (3.2-5.0); Alkaline Phosphatase 70 U/L (45-117); Anion Gap 7 (5-15); BUN 4 mg/dL (7-18); BUN/Creat Ratio 6.5 RATIO (10-20); Calcium,Total 8.1 mg/dL (8.5-10.1); Chloride 106 mmol/L (98-107); Creatinine, Serum 0.61 mg/dL (0.55-1.02); EST Glomerular Filtration Rate 118 mL/min (>60); Est Glom Filt Rate - Afr Amer 143 mL/min (>60); Estimated Creatinine Clearance 116.93 ml/min; Globulin 3.7 g/dL (2.2-4.2); Glucose 121 mg/dL (74-106); Potassium 3.9 mmol/L (3.5-5.1); Protein, Total 6.4 g/dL (6.4-8.2); Sodium Level 136 mmol/L (136-145)
[2022-04-13 07:25] LABS: Bedside Glucose 125 mg/dL (74-106)
[2022-04-13] MEDS: KCL 20MEQ in 0.9% NS 20 MEQ/1,000 ML IV.SOLN. 150 MEQ IV (07:33)
[2022-04-13] MEDS: 0.9% Saline Lock 10 ML Syringe IV ×2 (07:57→21:03)
--- NOTE | 2022-04-13 09:36 | NURSING ---
talked with piped pocket machine operator, text message to Dr. Bermudez regarding radiology interventionalist's response forwarded to Dr. Han.
[2022-04-13 11:45] LABS: Bedside Glucose 101 mg/dL (74-106)
--- NOTE | 2022-04-13 13:14 | PCM.PN.OB ---
Subjective Subjective pt states that she is very upset and wants to leave. She states, my babies need me on Thanksgiving and I want this IV out of my arm. She denies feeling feverish or chilling. She states that her pain is back to the level it was the day after surgery, which is an improvement from yesterday. Objective Data Objective Data Vital Signs: Vital Signs Temp Pulse Resp BP Pulse Ox O2 Del Method 99.5 F H 85 16 99/54 L 97 Room Air 04/13/22 08:05 04/13/22 08:05 04/13/22 08:05 04/13/22 08:05 04/13/22 08:05 04/13/22 08:05 Oxygen Delivery Method Room Air Weight: 224 lb 10.417 oz Body Mass Index (BMI) 37.3 Intake & Output: Intake and Output for Last 24 Hours 04/11/22 04/12/22 04/13/22 23:59 23:59 23:59 Intake Total 326.67 / 326.67 2057.5 / 2057.5 Output Total 500 / 500 Balance 326.67 / 326.67 1557.5 / 1557.5 Lab / Micro Data Result Diagrams: 04/13/22 06:40 04/13/22 06:40 Labs: Laboratory Results - last 24 hr 04/12/22 15:50: WBC 8.3, RBC 4.40, Hgb 11.9 L, Hct 36.2 L, MCV 82.3, MCH 27.0, MCHC 32.9, RDW Std Deviation 37.9, RDW Coeff of Mikel 12.4, Plt Count 255, MPV 10.4, Immature Gran % (Auto) 0.200, Neut % (Auto) 76.7 H, Lymph % (Auto) 11.6 L, [place] % (Auto) 10.3 H, Eos % (Auto) 0.8, Baso % (Auto) 0.4, Absolute Neuts (auto) 6.4, Absolute Lymphs (auto) 0.96, Nucleated RBC % 0 04/12/22 15:50: D-Dimer Quant (PE/DVT) 1.56 H* 04/12/22 15:50: Sodium 137, Potassium 3.3 L, Chloride 102, Carbon Dioxide 28.0, Anion Gap 7, BUN 5 L, Creatinine 0.70, Estim Creat Clear Calc 101.90, Est GFR (MDRD) Af Amer 122, Est GFR (MDRD) Non-Af 101, BUN/Creatinine Ratio 7.1 L, Glucose 109 H, Calcium 9.0 04/12/22 15:50: Lactic Acid 1.6 04/12/22 17:03: Urine Color Yellow, Urine Clarity Clear, Urine pH 6.5, Ur Specific [employer] [employer] 1.010, Urine Protein Negative, Urine Glucose (UA) Normal, Urine Ketones Negative, Urine Occult Blood Negative, Urine Nitrite Negative, Urine Bilirubin Negative, Urine Urobilinogen Normal, Ur Leukocyte Esterase 25 H, Urine RBC 0 SEEN, Urine WBC 0 SEEN, Ur Squamous Epith Cells 0-5 SEEN, Urine Bacteria 0 SEEN, Urine Mucus 0 SEEN 04/12/22 22:12: POC Glucose 127 H 04/13/22 05:59: POC Glucose 125 H 04/13/22 06:40: WBC 6.8, RBC 4.04 L, Hgb 11.2 L, Hct 33.4 L, MCV 82.7, MCH 27.7, MCHC 33.5, RDW Std Deviation 38.1, RDW Coeff of Mikel 12.5, Plt Count 217, MPV 10.2, Immature Gran % (Auto) 0.400, Neut % (Auto) 74.6 H, Lymph % (Auto) 11.8 L, [place] % (Auto) 11.3 H, Eos % (Auto) 1.6, Baso % (Auto) 0.3, Absolute Neuts (auto) 5.1, Absolute Lymphs (auto) 0.80 L, Nucleated RBC % 0 04/13/22 06:40: PT 14.4, INR 1.2 04/13/22 06:40: Sodium 136, Potassium 3.9, Chloride 106, Carbon Dioxide 23.0, Anion Gap 7, BUN 4 L, Creatinine 0.61, Estim Creat Clear Calc 116.93, Est GFR (MDRD) Af Amer 143, Est GFR (MDRD) Non-Af 118, BUN/Creatinine Ratio 6.5 L, Glucose 121 H, Calcium 8.1 L, Total Bilirubin 0.40, AST 11 L, ALT 18, Alkaline Phosphatase 70, Total Protein 6.4, Albumin 2.7 L, Globulin 3.7, Albumin/Globulin Ratio 0.7 L 04/13/22 11:23: POC Glucose 101 Micro: Microbiology 04/12/22 15:53 Nasal Secretion SARS-CoV-2 & FLU Antigen (Rapid) - Final Radiography Diagnostic Testing: Radiology Impression Chest X-Ray 04/12/22 15:49 IMPRESSION: No acute cardiopulmonary abnormality. No interval change. Electronically Signed: Ang Kohler MD at 16:11 EST , Chest CTA 04/12/22 17:04 IMPRESSION: Negative CTA chest. Electronically Signed: Andrea Conway MD at 17:52 EST , Abdomen/Pelvis CT 04/12/22 17:05 IMPRESSION: (NOT LISTED IN ORDER OF SIGNIFICANCE) Pelvic abscess previously described has slightly enlarged in size. Other findings as above. Electronically Signed: Andrea Conway MD at 17:58 EST , ROS Constitutional Constitutional: Reports systems reviewed and no addt'l complaints, except as documented Gastrointestinal Gastrointestinal: Denies bloating, constipation, cramping, diarrhea, nausea or vomiting Genitourinary Genitourinary: Reports other Details: Denies vaginal odor, vaginal bleeding, or vaginal discharge ; Denies difficulty urinating or flank pain Physical Exam Const alert, oriented x3 and no apparent distress General Appearance: cooperative and comfortable Resp normal respiratory effort Cardio regular rate GI normal to inspection, nondistended, normoactive bowel sounds Palpation: soft Rectal Exam: other Other Details: non-tender. Incision is clean, dry, and intact. Assessment & Plan (1) Postoperative abscess: PLAN: plan is to continue IV abx for at least 48 hrs discharge will be dependant on 48 hrs of being #1 afebrile, #2 clinically improving, #3 abscess shrinking (but will not repeat until 7 pm tomorrow night), and white count stays down. when has all criteria met, plan for 14 days of outpatient abx therapy. abx at home will be flagyl + bactrim due to pcn allergy.
[2022-04-13] MEDS: Ensure Plus High Protein 120 ML LIQUID PO ×3 (13:40→21:42)
--- NOTE | 2022-04-13 13:46 | NURSING ---
vs checked with student. POC discussed with patient. medicated for pain. denies all further needs visitor bedside.
[2022-04-13 14:02] LABS: Absolute Lymphocyte Count 0.75 X10^3/uL (0.83-4.51); Basophil# 0.02 X10^3/uL; Basophil% 0.3 % (0-1); Eosinophils% 1.3 % (0-5); Hematocrit 36.4 % (37-47); Hemoglobin 11.5 g/dL (12.0-15.0); Lymphocyte # 0.75 X10^3/ul (0.83-4.51); Lymphocyte % 10.1 % (19-41); Mean Corp Hgb Conc 31.6 g/dL (32-36); Mean Corpuscular Hgb 26.7 pg (27.0-32.0); Mean Corpuscular Volume 84.5 fL (81-99); Mean Platelet Vol. 10.2 fl (6.2-12.0); Monocyte# 0.51 X10^3/uL; Monocyte% 6.8 % (0-10); NRBC Flagged by Analyzer 0 % (0-5); Neutrophil # 6.04 X10^3/uL (2.7-7.7); Neutrophil % 81.1 % (47-70); Platelet Count 215 K/mm3 (150-450); RBC Distribution Width CV 12.3 % (11.6-14.6); RBC Distribution Width SD 38.2 fl (35.1-43.9); Red Blood Count 4.31 M/mm3 (4.2-5.4); White Blood Count 7.5 K/mm3 (4.4-11.0)
--- NOTE | 2022-04-13 14:37 | CASEMGMT ---
[facility] Readmission Note Previous Admission:?03/22/2022-03/23/2022? Diagnosis:? hysterectomy DC Disposition: Home Current Admission? Current Diagnosis: post op abscess ? Patient presents to the emergency department with multiple complaints of not feeling well. Patient states that 3 days ago she started to develop body aches and cough. Patient had a hysterectomy 3 weeks ago. Patient was seen at urgent care on day of admission and had a fever up to 101.3 and was referred to the emergency department. Patient is on Macrobid for suspected UTI. Pt states she had been seen at 1 week post op and 2 weeks post op with SOFTWARE APPLICATIONS ENGINEER. Pt has been taking her medications as ordered. Pt to receive IV atb for 48 hours and will dc when criteria met, white count improving, abscess shrinking and no fever. Pt to be dc'd on po atb. DC Plan: Home
--- NOTE | 2022-04-13 15:30 | NURSING ---
vs and sepsis screen information collected with SN.
[2022-04-13 16:20] LABS: Bedside Glucose 121 mg/dL (74-106)
[2022-04-13] MEDS: Ursodiol 250 MG Tablet PO ×2 (17:21→21:48)
[2022-04-13] MEDS: Famotidine 20 MG Tablet PO (21:48)
[2022-04-13 22:36] LABS: Bedside Glucose 123 mg/dL (74-106)
[2022-04-14] VITALS (7 sets, daily range): BP systolic 109–117; BP diastolic 64–78; PULSE 72–95; RESP 14–18; TEMP 37–37.6; O2SAT 98–100; BMI 37.3
[2022-04-14] MEDS: oxyCODONE 5 MG Tablet PO ×5 (03:36→22:00)
[2022-04-14] MEDS: Senna/Docusate Sodium 1 Tablet 2 TABLET PO (03:36)
[2022-04-14] MEDS: metroNIDAZOLE 500 MG/100 ML BAG 100 MG IV ×3 (05:50→21:59)
[2022-04-14] MEDS: Levothyroxine 137 MCG Tablet PO (05:50)
[2022-04-14] MEDS: 0.9% Saline Lock 10 ML Syringe IV ×2 (06:04→22:00)
[2022-04-14 07:15] LABS: Bedside Glucose 123 mg/dL (74-106)
[2022-04-14 07:42] LABS: Absolute Lymphocyte Count 1.36 X10^3/uL (0.83-4.51); Absolute Neutrophil Count 5.8 X10^3/uL (2.0-7.7); Basophil# 0.03 X10^3/uL; Basophil% 0.4 % (0-1); Eosinophil# 0.19 X10^3/uL; Eosinophils% 2.3 % (0-5); Hematocrit 37.7 % (37-47); Hemoglobin 11.9 g/dL (12.0-15.0); Lymphocyte # 1.36 X10^3/ul (0.83-4.51); Lymphocyte % 16.2 % (19-41); Mean Corp Hgb Conc 31.6 g/dL (32-36); Mean Corpuscular Hgb 26.4 pg (27.0-32.0); Mean Corpuscular Volume 83.8 fL (81-99); Mean Platelet Vol. 10.5 fl (6.2-12.0); Monocyte# 0.97 X10^3/uL; Monocyte% 11.5 % (0-10); NRBC Flagged by Analyzer 0 % (0-5); Neutrophil # 5.84 X10^3/uL (2.7-7.7); Neutrophil % 69.4 % (47-70); Platelet Count 271 K/mm3 (150-450); RBC Distribution Width CV 12.6 % (11.6-14.6); RBC Distribution Width SD 38.7 fl (35.1-43.9); White Blood Count 8.4 K/mm3 (4.4-11.0)
[2022-04-14 08:05] LABS: ALB/GLOB Ratio 0.7 RATIO (0.9-2.4); AST(SGOT) 8 U/L (15-37); Alanine Aminotransfer ALT/SGPT 16 U/L (13-56); Albumin, Serum 3.2 g/dL (3.2-5.0); Alkaline Phosphatase 77 U/L (45-117); Anion Gap 9 (5-15); BUN 8 mg/dL (7-18); BUN/Creat Ratio 10.6 RATIO (10-20); Calcium,Total 9.1 mg/dL (8.5-10.1); Chloride 100 mmol/L (98-107); Creatinine, Serum 0.75 mg/dL (0.55-1.02); EST Glomerular Filtration Rate 93 mL/min (>60); Est Glom Filt Rate - Afr Amer 113 mL/min (>60); Estimated Creatinine Clearance 95.11 ml/min; Globulin 4.3 g/dL (2.2-4.2); Glucose 122 mg/dL (74-106); Potassium 3.6 mmol/L (3.5-5.1); Protein, Total 7.5 g/dL (6.4-8.2); Sodium Level 135 mmol/L (136-145)
--- NOTE | 2022-04-14 09:06 | PN.OBGYN_ITS ---
Subjective Subjective pt is standing at bedside. She states that this AM she had a gush of pus consisting of yellow/green material that came from her vagina. She states that she felt sweaty last night like a fever but now feeling much better and feels that some pressure in her abdomen has been released. Objective Data Objective Data Vital Signs: Vital Signs Temp Pulse Resp BP Pulse Ox O2 Del Method 99 F 84 16 109/71 98 Room Air 04/14/22 07:58 04/14/22 07:58 04/14/22 07:58 04/14/22 07:58 04/14/22 07:58 04/14/22 07:58 Oxygen Delivery Method Room Air Weight: 224 lb 10.417 oz Body Mass Index (BMI) 37.3 Intake & Output: Intake and Output for Last 24 Hours 04/12/22 04/13/22 04/14/22 23:59 23:59 23:59 Intake Total 326.67 / 326.67 2309.50 / 2309.50 100 / 100 Output Total 1350 / 1350 Balance 326.67 / 326.67 959.50 / 959.50 100 / 100 Lab / Micro Data Result Diagrams: 04/14/22 07:13 04/14/22 07:13 Labs: Laboratory Results - last 24 hr 04/13/22 11:23: POC Glucose 101 04/13/22 13:53: WBC 7.5, RBC 4.31, Hgb 11.5 L, Hct 36.4 L, MCV 84.5, MCH 26.7 L, MCHC 31.6 L D, RDW Std Deviation 38.2, RDW Coeff of Mikel 12.3, Plt Count 215, MPV 10.2, Immature Gran % (Auto) 0.400, Neut % (Auto) 81.1 H, Lymph % (Auto) 10.1 L, [place] % (Auto) 6.8, Eos % (Auto) 1.3, Baso % (Auto) 0.3, Absolute Neuts (auto) 6.0, Absolute Lymphs (auto) 0.75 L, Nucleated RBC % 0 04/13/22 15:56: POC Glucose 121 H 04/13/22 21:45: POC Glucose 123 H 04/14/22 05:59: POC Glucose 123 H 04/14/22 07:13: WBC 8.4, RBC 4.50, Hgb 11.9 L, Hct 37.7, MCV 83.8, MCH 26.4 L, MCHC 31.6 L, RDW Std Deviation 38.7, RDW Coeff of Mikel 12.6, Plt Count 271, MPV 10.5, Immature Gran % (Auto) 0.200, Neut % (Auto) 69.4, Lymph % (Auto) 16.2 L, [place] % (Auto) 11.5 H, Eos % (Auto) 2.3, Baso % (Auto) 0.4, Absolute Neuts (auto) 5.8, Absolute Lymphs (auto) 1.36, Nucleated RBC % 0 04/14/22 07:13: Sodium 135 L, Potassium 3.6, Chloride 100, Carbon Dioxide 26.0, Anion Gap 9, BUN 8, Creatinine 0.75, Estim Creat Clear Calc 95.11, Est GFR (MDRD) Af Amer 113, Est GFR (MDRD) Non-Af 93, BUN/Creatinine Ratio 10.6, Glucose 122 H, Calcium 9.1, Total Bilirubin 0.40, AST 8 L, ALT 16, Alkaline Phosphatase 77, Total Protein 7.5, Albumin 3.2, Globulin 4.3 H, Albumin/Globulin Ratio 0.7 L Micro: Microbiology 04/12/22 15:53 Nasal Secretion SARS-CoV-2 & FLU Antigen (Rapid) - Final Radiography Diagnostic Testing: Radiology Impression Chest CTA 04/12/22 17:04 IMPRESSION: Negative CTA chest. Electronically Signed: Andrea Conway MD at 17:52 EST , Abdomen/Pelvis CT 04/12/22 17:05 IMPRESSION: (NOT LISTED IN ORDER OF SIGNIFICANCE) Pelvic abscess previously described has slightly enlarged in size. Other findings as above. Electronically Signed: Andrea Conway MD at 17:58 EST , ROS Constitutional Constitutional: Reports systems reviewed and no addt'l complaints, except as documented Gastrointestinal Gastrointestinal: Denies bloating, constipation, cramping, diarrhea, nausea or vomiting Genitourinary Genitourinary: Reports other Details: Denies vaginal odor, vaginal bleeding, or vaginal discharge ; Denies difficulty urinating or flank pain Physical Exam Const alert, oriented x3 and no apparent distress General Appearance: cooperative and comfortable Resp normal respiratory effort Cardio regular rate GI normal to inspection, nondistended, normoactive bowel sounds Palpation: soft Rectal Exam: other Other Details: non-tender. Incision is clean, dry, and intact. no CVA tenderness, external exam normal and appearance of the vagina normal Narrative: Speculum exam showed a yellow purulent material coming from between sutures. Vaginal cuff is well intact. The discharge was swabbed for aerobic and anaerobic bacteria. Bladder / Kidney Exam: no CVA tenderness and bladder abnormal to palpation Extremity no clubbing, cyanosis or edema and no calf tenderness Extremity Narrative: dilated varicosities present Assessment & Plan (1) Postoperative abscess: PLAN: Plan today is to repeat the imaging at [address] Ultrasound cancelled due to recommendations from radiology believe that the drainage today is the abscess resolving and if that is the case on CT, will dc to home on oral abx (bactrim + flagyl) will send to [facility] now due to limited holiday hours and ask patient's family members to pick that up early today in prepration for early dc No clinical fever white count stable (WNL) clinically improving if meets all these criteria plus shrinking size of abscess, will send home at 7 pm tonight. (2) Personal history of malignant melanoma: COMMENT: outer left breast-enc breast exam Q 3 mo per derm (3) Metabolic syndrome: COMMENT: nl HgA1c last done (4) Almaz's thyroiditis: COMMENT: s/p thyroid removal, repeat labs ordered (5) PCOS (polycystic ovarian syndrome): COMMENT: apri. checked labs 04/10. discussed lifestyle management and education/counseling provided (6) DANA (obstructive sleep apnea): (7) Type 2 diabetes mellitus: COMMENT: SSI humalog ordered, diabetic diet (8) Obesity: (9) Generalized anxiety disorder with panic attacks: (10) Fibromyalgia affecting multiple sites: (11) Sciatica, right side: (12) S/P vaginal hysterectomy: COMMENT: tvh bs left oophorectomy mini lap due to bleeding (13) Hypertension: COMMENT: home meds ordered Charges/Coding Visit Charges Inpatient E&M: 41398 Subs Hosp L3
[2022-04-14] MEDS: Famotidine 20 MG Tablet PO ×2 (10:04→22:00)
[2022-04-14] MEDS: amLODIPine 5 MG Tablet PO (10:04)
[2022-04-14] MEDS: Ursodiol 250 MG Tablet PO ×2 (10:04→22:00)
[2022-04-14] MEDS: Ensure Plus High Protein 120 ML LIQUID PO ×4 (10:05→22:01)
[2022-04-14 11:35] LABS: Bedside Glucose 162 mg/dL (74-106)
[2022-04-14 17:10] LABS: Bedside Glucose 94 mg/dL (74-106)
--- NOTE | 2022-04-14 19:00 | CT_ITS ---
STUDY: CT ABDOMEN AND PELVIS WITH CONTRAST REASON FOR EXAM: Female, 36 years old. pelvic abscess RADIATION DOSAGE (If Supplied By Facility): CTDIvol = ( 18.20 ) mGy, DLP = ( 1362.16 ) mGycm TECHNIQUE: Transaxial images were obtained from the dome of the diaphragm to the symphysis pubis without oral contrast. IV 100mL Isovue-370 was administered. Sagittal and coronal images were reconstructed. Individualized dose optimization techniques were used for this CT. COMPARISON: 04/12/2022 FINDINGS: Minor subsegmental atelectasis in right lower lobe. The visualized portions of the heart are within normal limits. Normal liver. Contracted thick-walled gallbladder without calcified stones likely physiologic.. Normal spleen. Normal pancreas. Normal bilateral adrenal glands. Normal right kidney. Normal left kidney. Normal visualized stomach. Normal small intestine. Normal colon. The appendix is visualized and appears normal. Normal abdominal aorta. Normal inferior vena cava. Normal retroperitoneum. Poorly distended thick-walled bladder possibly inflammatory Postop change status post hysterectomy There is a thick-walled fluid collection with loculation measuring approximately 4.7 x 7.65 cm containing tiny air bubbles contiguous with the vaginal vault and the possibility of fistulous tract cannot be excluded.. Small umbilical hernia containing fat.. Postop changes of the right hip.. The abscess appears slightly smaller when compared with previous exam CT/Abdomen/Pelvis W IV Cont ONLY IMPRESSION: Postsurgical pelvic abscess contiguous with the vaginal vault with possible fistulous communication.. Clinical correlation is recommended. Fluoroscopic guided contrast vaginogram would be helpful for further assessment if indicated Electronically Signed: Nima Castro MD at 19:36 EST ,
[2022-04-14 23:06] LABS: Bedside Glucose 127 mg/dL (74-106)
[2022-04-15] VITALS (11 sets, daily range): BP systolic 109–127; BP diastolic 64–92; PULSE 66–99; RESP 16–18; TEMP 36.6–37.4; O2SAT 96–100
[2022-04-15] MEDS: Lactated Ringers 1,000 ML 15 ML IV ×2 (05:51→09:30)
[2022-04-15] MEDS: metroNIDAZOLE 500 MG/100 ML BAG 100 MG IV ×3 (05:53→21:21)
--- NOTE | 2022-04-15 05:55 | NURSING ---
PT TO OR VIA BED
--- NOTE | 2022-04-15 06:06 | NURSING ---
RECEIVED CALL FROM [facility] STATING ANESTHESIA REQUESTING PT BE BROUGHT DOWN @ 0700 INSTEAD OF NOW. PT RETURNED TO UNIT. PT TO GO TO OR @ 0700.
--- NOTE | 2022-04-15 07:22 | NURSING ---
LATE ENTRY - 699 - PT BACK TO OR VIA BED
[2022-04-15 07:25] LABS: Thyroid Stim Hormone (TSH) 4.08 uIU/mL (0.358-3.74)
[2022-04-15 07:38] LABS: Hemoglobin A1c 5.6 % (3.8-5.6)
[2022-04-15] MEDS: Bupivacaine 0.25% 30 ML Vial (08:42)
--- NOTE | 2022-04-15 10:10 | PCM.OP.BLANK ---
Problems Associated Problem List Diagnoses (1) Postoperative abscess: Operative Report Date of Procedure: 04/15/22 Preoperative diagnosis: status post hysterectomy, pelvic abscess Postoperative diagnosis: status post hysterectomy, pelvic abscess, right ovarian simple cyst Procedure: Vaginal incision and drainage of pelvic abscess, diagnostic laparoscopy right ovarian cystotomy, lysis of adhesions Surgeons: Dr. Dimple Garcia, Dr. Cassidy Moore Catalog Library Assistant: ROSS Mena Estimated blood loss: 50 cc Urine output: Gomez drain to kick bucket Complications: None Implanted material: None Drains: None Details of the procedure: The patient was brought to the operating room where general anesthesia was performed she was prepped and draped in the normal sterile fashion her legs were placed in stirrups a weighted speculum was placed in the vagina as well as a right angle retractor sutures were noted to be intact at the vaginal cuff and were grasped using Allis clamps and trimmed at the midline and opening in the vaginal cuff was performed carefully and a Gomez catheter was placed through the opening of the vaginal cuff to help with careful drainage of the abscess. Profuse purulent foul odor discharge was expelled from the opening of approximately [address] Will Lal performed a bedside ultrasound showing complete resolution of the inferior abscess. Because CAT scan showed that there were 2 separate fluid collections the ultrasound was performed to find the second abscess. The abscess was noted to be more cephalad than the drained abscess and we were unsuccessfully able to reach that vaginally. The decision was made to perform a laparoscopy to drain the second abscess found on CAT scan. Gloves were changed and attention was turned towards the abdomen an infraumbilical skin incision was made with a scalpel after quarter percent Marcaine was injected. A 5 mm trocar was inserted into the abdomen under direct visualization while also tenting up the skin using towel clamps. Good entry was noted and CO2 gas was used to insufflate the abdomen. The patient was placed in Trendelenburg position. Right lower quadrant 5 mm trocar was then inserted under direct visualization. A left lower quadrant port site was also placed but noted to be surrounded by omental adhesions. Dr. Will Lal at that time performed lysis of adhesions using the LigaSure device by carefully cauterizing and cutting the omentum off the anterior abdominal wall. There was noted to be no bowel entrapment at these locations. Irrigation was performed in the cul-de-sac then with careful blunt dissection as well as Leland dissection of omentum and loops of bowel from the cul-de-sac the right ovary was noted to be enlarged and there was a corpus luteal appearing cyst that was at the surface of the ovary using the blunt trocar this cyst the cyst site was opened and drained of clear fluid. Further investigation using Leland dissection and careful manipulation showed that there was not in fact a second abscess present in the pelvis and the finding on CAT scan was likely 1 abscess and one ovarian cyst that were sitting on top of each other. Monopolar cautery was used to gently create excellent hemostasis in the cul-de-sac where adhesions were taken down Floseal was applied to these areas. The irrigant that was inserted initially was then suctioned out to the best of our ability as the patient was placed in reverse Trendelenburg position to collect most of the fluid. At this time the decision was made to remove all instruments from the abdomen and in the case the port sites were closed with a 4-0 Monocryl subcuticular stitch and sealed with surgical glue. An OpSite was placed over the umbilicus. A second look in the vagina then showed that there was no further drainage of any abscess material in the Gomez catheter was removed from the vagina. The remaining vaginal cuff was sutured with the exception of a tiny approximately 5 mm opening to allow further excess drainage to occur. The patient tolerated the procedure well sponge lap and needle counts were correct x2 and she was brought to the recovery room in stable condition Multi Select Codes Urinary/Genital Urinary/Genital CPT Codes: Other Procedure See Report (incision and drainage of vaginal cuff abscess, diagnostic laparoscopy, lysis of adhesions, right ovarian cystotomy)
--- NOTE | 2022-04-15 11:00 | NURSING ---
pt remains off unit
[2022-04-15] MEDS: amLODIPine 5 MG Tablet PO (11:34)
[2022-04-15] MEDS: Famotidine 20 MG Tablet PO ×2 (11:37→20:42)
[2022-04-15] MEDS: Ursodiol 250 MG Tablet PO ×2 (11:37→20:42)
[2022-04-15] MEDS: oxyCODONE 5 MG Tablet PO ×3 (11:40→21:20)
[2022-04-15 12:30] LABS: Bedside Glucose 146 mg/dL (74-106)
[2022-04-15 13:36] LABS: Bedside Glucose 137 mg/dL (74-106)
[2022-04-15] MEDS: Ketorolac 30 MG/ML Syringe IV ×2 (13:49→20:38)
[2022-04-15] MEDS: Ondansetron ODT 4 MG Tablet PO (18:05)
[2022-04-15] MEDS: Docusate Sodium 100 MG Capsule PO (20:42)
--- NOTE | 2022-04-15 21:24 | EKG12_ITS ---
Test Reason : CP Blood Pressure : / mmHG Vent. Rate : 080 BPM Atrial Rate : 080 BPM P-R Int : 172 ms QRS Dur : 090 ms QT Int : 378 ms P-R-T Axes : 056 056 036 degrees QTc Int : 435 ms Normal sinus rhythm with sinus arrhythmia Normal ECG When compared with ECG of 02-MAR-2022 09:01, No significant change was found Confirmed by ANNA HARTMAN, SHAYNA ([id number]), television news video editor JULIO HDEZ ([id number]) on 04/19/2022 9:10:26 AM Referred By: MARIE Confirmed By:SHAYNA CASTILLO MD
[2022-04-16] MEDS: oxyCODONE 5 MG Tablet PO ×2 (01:46→06:12)
[2022-04-16] MEDS: Ketorolac 30 MG/ML Syringe IV ×2 (01:48→06:12)
[2022-04-16 02:05] VITALS: BP 125/67; PULSE 93; RESP 18; TEMP 37.1; O2SAT 98
[2022-04-16] MEDS: metroNIDAZOLE 500 MG/100 ML BAG 100 MG IV (06:12)
[2022-04-16] MEDS: Levothyroxine 137 MCG Tablet PO (06:12)
[2022-04-16] MEDS: 0.9% Saline Lock 10 ML Syringe IV (06:15)
[2022-04-16 07:18] LABS: Hematocrit 32.9 % (37-47); Hemoglobin 10.4 g/dL (12.0-15.0); Mean Corp Hgb Conc 31.6 g/dL (32-36); Mean Corpuscular Hgb 26.8 pg (27.0-32.0); Mean Corpuscular Volume 84.8 fL (81-99); Mean Platelet Vol. 10.2 fl (6.2-12.0); Platelet Count 205 K/mm3 (150-450); RBC Distribution Width CV 12.5 % (11.6-14.6); RBC Distribution Width SD 38.4 fl (35.1-43.9); Red Blood Count 3.88 M/mm3 (4.2-5.4)
--- NOTE | 2022-04-16 09:22 | DCINST_ITS ---
Discharge Instructions Diet Discharge Diet: No restrictions Activity Discharge Activity: Return to Normal Activity, May Drive (when pain free) and May Shower May resume sexual activity in: 6 weeks Weight Bearing Status: Full weight bearing Lifting Restrictions: 15 lbs for 2 weeks Dressing / Incision Call your doctor if your incision/area has: Continuous Slow Oozing, Sudden Increased Bleeding, Increased Pain/ Swelling, Increased Redness and Foul Smelling Discharge Call your doctor if you observe: Fever of 101 or Higher, Using more than 1 pad per hour, Shortness of breath, Chest pain and Uncontrolled pain Suture Line Care: Avoid Pulling/Pushing and Avoid Pinching/Bending Remove Dressing in: 1 week (if present) Cleanse incision/area with: Soap & Water and Keep Dressing Clean & Dry Follow Up Care Please Follow Up With: Cassidy Moore MD When: call to be seen monday or monday in the office Test Results: Test results from this visit will be discussed in further detail at your follow- up appointment, if applicable. Discharge Plan Admission Admit Date/Time: 04/12/22 18:54 Primary Reason for Your Visit: pelvic abscess Attending Provider: Cassidy Moore Primary Care Provider: Jose Alejandro London Consulting Providers: Christiano Eduardo Discharge Orders/Prescriptions Prescriptions: New oxycodone 5 mg tablet 5 mg PO Q8H PRN (Reason: pain) 3 Days Qty: 18 0RF sulfamethoxazole-trimethoprim [Bactrim DS] 800-160 mg tablet 1 tab PO BID 14 Days Qty: 28 0RF metronidazole 500 mg tablet 500 mg PO BID 14 Days Qty: 28 0RF Continued meclizine 25 mg tablet 25 mg PO BID PRN (Reason: dizziness) Qty: 30 1RF levothyroxine 137 mcg tablet 137 mcg PO DAILY amlodipine 5 mg tablet 5 mg PO DAILY ursodiol 300 mg capsule 300 mg PO BID vitamin E mixed 400 unit capsule 800 unit PO .qd hydroxyzine pamoate 50 mg capsule 50 mg PO TID PRN (Reason: anxiety) Qty: 20 0RF ketoprofen 75 mg capsule 75 mg PO Q6H PRN (Reason: Migraine Symptoms) Qty: 100 0RF Rx Instructions: 1 cap PO at on set of headache max of 3 in 24 hours, max 20 per month prochlorperazine maleate [Compazine] 10 mg tablet 10 mg PO BID PRN (Reason: Migraine Symptoms) Qty: 30 1RF Discontinued oxycodone-acetaminophen [Percocet] 5-325 mg tablet 1 tab PO Q6H PRN (Reason: pain) 7 Days Qty: 28 0RF Referrals / Follow Up: Jose Alejandro London MD [Primary Care Provider] - Disposition Disposition (needs filled in before D/C Order can be placed): Home, Self Care
--- NOTE | 2022-04-16 09:23 | PN.OBGYN_ITS ---
Subjective Subjective Patient much better no urinary complaints now, Tolerating PO. Ambulating without difficulty. Denies chest pain, shortness of breath, calf pain/swelling, fevers, chills, lightheadedness. small vaginal bleeding/discharge Objective Data Objective Data Vital Signs: Vital Signs Temp Pulse Resp BP Pulse Ox O2 Del Method O2 Flow Rate 98.8 F 93 18 125/67 H 98 Room Air 6 04/16/22 02:05 04/16/22 02:05 04/16/22 02:05 04/16/22 02:05 04/16/22 02:05 04/16/22 08:55 04/15/22 09:48 Oxygen Flow Rate (L/min) 6 Oxygen Delivery Method Room Air Weight: 224 lb 10.417 oz Body Mass Index (BMI) 37.3 Intake & Output: Intake and Output for Last 24 Hours 04/14/22 04/15/22 04/16/22 23:59 23:59 23:59 Intake Total 1296.25 / 1296.25 2906 / 2906 803 / 803 Output Total 800 / 800 600 / 600 Balance 496.25 / 496.25 2306 / 2306 803 / 803 Lab / Micro Data Result Diagrams: 04/16/22 06:40 04/14/22 07:13 Labs: Laboratory Results - last 24 hr 04/15/22 05:50: POC Glucose 137 H 04/15/22 11:43: POC Glucose 146 H 04/16/22 06:40: WBC 6.0, RBC 3.88 L, Hgb 10.4 L, Hct 32.9 L, MCV 84.8, MCH 26.8 L, MCHC 31.6 L, RDW Std Deviation 38.4, RDW Coeff of Mikel 12.5, Plt Count 205, MPV 10.2 Micro: Microbiology 04/14/22 09:45 Genital vaginal Gram Stain - Final 04/14/22 09:45 Genital vaginal Wound Culture - Preliminary GPC Poss Enterococcus sp 04/12/22 16:15 Blood Culture (Wb) - Anticubital Left Blood Culture - P reliminary No growth in 48 hours. 04/12/22 15:50 Blood Culture (Wb) - Anticubital Left Blood Culture - Preliminary No growth in 48 hours. 04/12/22 15:53 Nasal Secretion SARS-CoV-2 & FLU Antigen (Rapid) - Final ROS Constitutional Constitutional: Reports systems reviewed and no addt'l complaints, except as documented Cardiovascular Cardiovascular: Reports systems reviewed and no addt'l complaints, except as documented Respiratory/Chest Respiratory/Chest: Reports systems reviewed and no addt'l complaints, except as documented Gastrointestinal Gastrointestinal: Reports systems reviewed and no addt'l complaints, except as documented Physical Exam Const alert, oriented x3 and no apparent distress HEENT Head and Scalp: atraumatic Resp normal respiratory effort GI soft to palpation and non-tender Assessment & Plan (1) Postoperative pain: COMMENT: ketoprofen and oxy IR (2) S/P vaginal hysterectomy: COMMENT: tvh bs left oophorectomy mini lap due to bleeding (3) Postoperative abscess: COMMENT: s/p IVAbx with ceftriaxone and flagyl, s/p vaginal cuff abscess drainage and diagnostic laparoscopy. dc home bactrim and flagyl (4) Class II obesity: (5) Hypertension: COMMENT: home meds ordered (6) MARCELINO (nonalcoholic steatohepatitis): (7) Tobacco abuse: COMMENT: encouraged cessation (8) Generalized anxiety disorder with panic attacks: (9) Type 2 diabetes mellitus: COMMENT: SSI humalog ordered, diabetic diet (10) DANA (obstructive sleep apnea): PLAN: Plan see a/p comments above afebrile, WBC decreasing and patient feeling much better, stable for dc home. fu in office /wed. dc home on bactrim and flagyl.
[2022-04-16 09:30] VITALS: BP 106/61; PULSE 82; RESP 17; TEMP 36.6; O2SAT 100
[2022-04-16] MEDS: Famotidine 20 MG Tablet PO (09:58)
[2022-04-16] MEDS: Docusate Sodium 100 MG Capsule PO (09:58)
[2022-04-16] MEDS: Ursodiol 250 MG Tablet PO (09:59)
[2022-04-16] MEDS: amLODIPine 5 MG Tablet PO (10:01)
--- NOTE | 2022-04-19 14:47 | DS.PCM_ITS ---
Providers Date of Admission: 04/12/22 Primary Care Physician: Dr. Jose Alejandro London MD Consultations 04/13/22 01:45 Consult: Interventional Radiology Routine Consulting Provider: Christiano Eduardo Reason for Consult: pelvic abscess EMERGENT Consult: No MD Notified: Yes Date Notified: 04/13/22 Time Notified: 08:39 Method of Notification: Answering Service Comments:: talked with Rosemary RN, Radiology Nurse Reason For Visit: POST OP ABSCESS Diagnosis Discharge Diagnosis (1) Postoperative pain: Status: Acute Code(s): G89.18 - Other acute postprocedural pain (2) S/P vaginal hysterectomy: Status: Acute Code(s): Z90.710 - Acquired absence of both cervix and uterus (3) Postoperative abscess: Status: Acute Code(s): T81.49XA - Infection following a procedure, other surgical site, initial encounter (4) Class II obesity: Status: Acute Code(s): E66.9 - Obesity, unspecified (5) Hypertension: Status: Chronic Code(s): I10 - Essential (primary) hypertension (6) MARCELINO (nonalcoholic steatohepatitis): Status: Acute Code(s): K75.81 - Nonalcoholic steatohepatitis (MARCELINO) (7) Tobacco abuse: Status: Chronic Code(s): Z72.0 - Tobacco use (8) Generalized anxiety disorder with panic attacks: Status: Chronic Code(s): F41.1 - Generalized anxiety disorder; F41.0 - Panic disorder [episodic paroxysmal anxiety] (9) Type 2 diabetes mellitus: Status: Acute Code(s): E11.9 - Type 2 diabetes mellitus without complications (10) DANA (obstructive sleep apnea): Status: Suspected Code(s): G47.33 - Obstructive sleep apnea (adult) (pediatric) Plan see a/p comments above afebrile, WBC decreasing and patient feeling much better, stable for dc home. fu in office /mon. dc home on bactrim and flagyl. Medications at Discharge Home Medications meclizine 25 mg tablet 25 mg PO BID PRN dizziness #30 tabs 08/11/21 hydroxyzine pamoate 50 mg capsule 50 mg PO TID PRN anxiety #20 caps 02/11/22 ketoprofen 75 mg capsule 75 mg PO Q6H PRN Migraine Symptoms #100 caps 02/11/22 prochlorperazine maleate 10 mg tablet (Compazine) 10 mg PO BID PRN Migraine Symptoms #30 tabs 02/11/22 amlodipine 5 mg tablet 5 mg PO DAILY bp 04/12/22 levothyroxine 137 mcg tablet 137 mcg PO DAILY synthroid 04/12/22 ursodiol 300 mg capsule 300 mg PO BID thyroid 04/12/22 vitamin E mixed 400 unit capsule 800 unit PO .qd supplement 04/12/22 metronidazole 500 mg tablet 500 mg PO BID 14 days #28 tabs 04/14/22 oxycodone 5 mg tablet 5 mg PO Q8H PRN pain 3 days #18 tabs 04/14/22 sulfamethoxazole 800 mg-trimethoprim 160 mg tablet (Bactrim DS) 1 tab PO BID 14 days #28 tabs 04/14/22 linezolid 600 mg tablet (Zyvox) 600 mg PO Q12H 14 days #28 tabs 04/18/22 Hospital Course Operations - (vaginal cuff abcscess drainage, diagnostic laparoscopy) Summary of Care Provided Hospital Course: patient was admitted for pelvic posthysterectomy abscess and started on IV antibiotics, was afebrile without a significant leukocystosis but after 48 hrs of antibiotics the abscess wasn't resolving therefore the decision to proceed with surgical drainage was made. CT guided drainage was unable to be done due to the location being near the bladder. she had the cuff abscess open and dra sanchez and a laparoscopy to confirm no additional abscess was present and an ovarian cyst was seen and scar tissue removed. she was afebrile postoperatively and was stable for discharge home on pod 1 from the cuff drainage, sent home on bactrim and flagyl after receiving IV ceftriaxone and flagyl. Weight / BMI Weight Weight: 224 lb 10.417 oz Body Mass Index (BMI) 37.3 ABG / Lab / Microbiology Data Result Diagrams: 04/16/22 06:40 04/14/22 07:13 Microbiology: Microbiology 04/14/22 09:45 Genital vaginal Gram Stain - Final 04/14/22 09:45 Genital vaginal Wound Culture - Final Enterococcus faecalis 04/14/22 09:45 Genital vaginal Anaerobic Culture - Final Prevotella bivia Prevotella melaninogenica Anaerobic cocci 04/12/22 16:15 Blood Culture (Wb) - Anticubital Left Blood Culture - Final No growth in 5 days. 04/12/22 15:50 Blood Culture (Wb) - Anticubital Left Blood Culture - Final No growth in 5 days. 04/12/22 15:53 Nasal Secretion SARS-CoV-2 & FLU Antigen (Rapid) - Final D/C Instructions Discharge Diet: No restrictions May resume sexual activity in: 6 weeks Weight Bearing Status: Full weight bearing Call your doctor if your incision/area has: Continuous Slow Oozing, Sudden Increased Bleeding, Increased Pain/ Swelling, Increased Redness and Foul Smelling Discharge Call your doctor if you observe: Fever of 101 or Higher, Using more than 1 pad per hour, Shortness of breath, Chest pain and Uncontrolled pain Suture Line Care: Avoid Pulling/Pushing and Avoid Pinching/Bending Cleanse incision/area with: Soap & Water and Keep Dressing Clean & Dry Please Follow Up With: Cassidy Moore MD When: call to be seen monday or monday in the office Meaningful Use Info Meaningful Use Diagnoses (Choose all that apply): None applicable Discharge Plan Admission Admit Date/Time: 04/12/22 18:54 Primary Reason for Your Visit: pelvic abscess Attending Provider: Cassidy Moore Primary Care Provider: Jose Alejandro London Consulting Providers: Christiano Eduardo Discharge Orders/Prescriptions Prescriptions: New oxycodone 5 mg tablet 5 mg PO Q8H PRN (Reason: pain) 3 Days Qty: 18 0RF sulfamethoxazole-trimethoprim [Bactrim DS] 800-160 mg tablet 1 tab PO BID 14 Days Qty: 28 0RF metronidazole 500 mg tablet 500 mg PO BID 14 Days Qty: 28 0RF Continued meclizine 25 mg tablet 25 mg PO BID PRN (Reason: dizziness) Qty: 30 1RF levothyroxine 137 mcg tablet 137 mcg PO DAILY amlodipine 5 mg tablet 5 mg PO DAILY ursodiol 300 mg capsule 300 mg PO BID vitamin E mixed 400 unit capsule 800 unit PO .qd hydroxyzine pamoate 50 mg capsule 50 mg PO TID PRN (Reason: anxiety) Qty: 20 0RF ketoprofen 75 mg capsule 75 mg PO Q6H PRN (Reason: Migraine Symptoms) Qty: 100 0RF Rx Instructions: 1 cap PO at on set of headache max of 3 in 24 hours, max 20 per month prochlorperazine maleate [Compazine] 10 mg tablet 10 mg PO BID PRN (Reason: Migraine Symptoms) Qty: 30 1RF Discontinued oxycodone-acetaminophen [Percocet] 5-325 mg tablet 1 tab PO Q6H PRN (Reason: pain) 7 Days Qty: 28 0RF No Action linezolid [Zyvox] 600 mg tablet 600 mg PO Q12H 14 Days Qty: 28 0RF Referrals / Follow Up: Jose Alejandro London MD [Primary Care Provider] - Disposition Disposition (needs filled in before D/C Order can be placed): Home, Self Care
== END 2022-04-16 10:37 | disposition home or self-care (01) | DRG 711 ==
LOC: ED 18:41 → MS3 19:07
PROVIDERS: Anesthesiology; Obstetrics & Gynecology; Admitting Provider Obstetrics & Gynecology; Emergency Provider Emergency Medicine; PCP Internal Medicine; Visit Provider Obstetrics & Gynecology
PROC: 0W9J0ZX Drainage of Pelvic Cavity, Open Approach, Diagnostic (ICD-10-PCS; CPT 49320; principal; 2022-04-15 05:45)
DX: T81.49XA Infection following a procedure, other surgical site, initial encounter (principal); L02.211 Cutaneous abscess of abdominal wall; K75.81 Nonalcoholic steatohepatitis (NASH); E11.9 Type 2 diabetes mellitus without complications; M79.7 Fibromyalgia; F17.210 Nicotine dependence, cigarettes, uncomplicated; G47.33 Obstructive sleep apnea (adult) (pediatric); I10 Essential (primary) hypertension; M54.31 Sciatica, right side; E28.2 Polycystic ovarian syndrome; E06.3 Autoimmune thyroiditis; F90.2 Attention-deficit hyperactivity disorder, combined type; R07.9 Chest pain, unspecified; G89.18 Other acute postprocedural pain; Z90.710 Acquired absence of both cervix and uterus; N83.8 Other noninflammatory disorders of ovary, fallopian tube and broad ligament; N73.9 Female pelvic inflammatory disease, unspecified; E66.9 Obesity, unspecified; F41.0 Panic disorder [episodic paroxysmal anxiety]
CPT/HCPCS: 36415; 71045; 71275; 74177; 80048; 80053; 81001; 82962; 83036; 83605; 84443; 85025; 85027; 85379; 85610; 87040; 87070; 87075; 87077; 87186; 87205; 87428; 93005; 97802; 99251; 99284; J7030; J7050; J7120; Q9967; A4216; G0463; J0696; Q9968

== ENCOUNTER 2022-04-18 17:06 | Emergency (ER) | payer MEDICAID, SELFPAY ==
[2022-04-18 17:09] VITALS: BP 123/76; PULSE 102; RESP 14; TEMP 36.5; O2SAT 99; BMI 37.6
--- NOTE | 2022-04-18 17:26 | EDS_ITS ---
HPI History of Present Illness Chief Complaint: Numb/Ting Detail of Chief Complaint: Bilateral calf pain Informant: patient Onset/Context/Timing Onset: Yesterday Context: Sudden Onset Timing: Continuous Quality: Pain Location: Initially right calf now bilateral Current Severity: Mild Maximum Severity: Moderate Worsened by: Nothing specific Relieved by: Nothing Associated Symptoms Associated Symptoms: None Narrative Narrative: Patient is a 36-year-old woman with history of type 2 diabetes, Almaz's thyroiditis, polycystic ovarian disease status post hysterectomy 1 month ago. This was complicated by a pelvic abscess that was drained 1 week ago. She was admitted to the hospital last Monday and discharged this past Monday. She was present on antibiotics. There was a history of fibromyalgia. She does report shortness of breath. She has had shortness of breath for 1 week. She had a CTA last week which was negative. CTA was performed because of shortness of breath and elevated D-dimer. She reports sweats. She has not had an elevated temperature since she was discharged to home. She denies nausea, vomiting diarrhea. Prior similar symptoms: No Recent Illness/Hospitalization: Yes [facility] Medical History Abdominal pain Acute bronchitis, unspecified Acute sinusitis, unspecified ADHD (attention deficit hyperactivity disorder), combined type Arthritis Back pain Back pain Bronchitis Cancer Cardiology follow-up encounter Cervical lymphadenopathy Cervical radiculopathy Chronic back pain Chronic low back pain Chronic pain Chronic RUQ pain Depression Easy bruising Ectopic cardiac beats Fatty liver Fibromyalgia NICOLÁS (generalized anxiety disorder) Almaz's thyroiditis Heartburn History of acne History of echocardiogram History of gestational diabetes History of pain when walking History of stress test Hypertension Hypocalcemia Injury of head and neck Left-sided low back pain with left-sided sciatica Localized swelling, mass and lump, neck Melanoma Migraine without aura and with status migrainosus, not intractable Morbid obesity MARCELINO (nonalcoholic steatohepatitis) Numbness and tingling of both upper extremities Numbness of both lower extremities Palpitations Post herpetic neuralgia Restless legs Right femoral fracture RUQ abdominal pain Syncope Thyroid disease Tinnitus Tobacco abuse Vertigo Home Medications meclizine 25 mg tablet 25 mg PO BID PRN dizziness #30 tabs 08/11/21 [Rx Last Taken Unknown] hydroxyzine pamoate 50 mg capsule 50 mg PO TID PRN anxiety #20 caps 02/11/22 [Rx Last Taken Unknown] ketoprofen 75 mg capsule 75 mg PO Q6H PRN Migraine Symptoms #100 caps 02/11/22 [Rx Last Taken Unknown] prochlorperazine maleate 10 mg tablet (Compazine) 10 mg PO BID PRN Migraine Sy mptoms #30 tabs 02/11/22 [Rx Last Taken Unknown] amlodipine 5 mg tablet 5 mg PO DAILY bp 04/12/22 [History Last Taken Unknown] levothyroxine 137 mcg tablet 137 mcg PO DAILY synthroid 04/12/22 [History Last Taken Unknown] ursodiol 300 mg capsule 300 mg PO BID thyroid 04/12/22 [History Last Taken Unknown] vitamin E mixed 400 unit capsule 800 unit PO .qd supplement 04/12/22 [History Last Taken Unknown] metronidazole 500 mg tablet 500 mg PO BID 14 days #28 tabs 04/14/22 [Rx Last Taken Unknown] oxycodone 5 mg tablet 5 mg PO Q8H PRN pain 3 days #18 tabs 04/14/22 [Rx Last Taken Unknown] sulfamethoxazole 800 mg-trimethoprim 160 mg tablet (Bactrim DS) 1 tab PO BID 14 days #28 tabs 04/14/22 [Rx Last Taken Unknown] linezolid 600 mg tablet (Zyvox) 600 mg PO Q12H 14 days #28 tabs 04/18/22 [Rx Last Taken Unknown] Allergy/AdvReac Type Severity Reaction Status Date / Time promethazine [From Phenergan] Allergy Unknown Unknown Verified 04/18/22 17:09 latex Allergy Itching Verified 04/18/22 17:09 naproxen Allergy Unknown Verified 04/18/22 17:09 Penicillins [PCN] Allergy Rash Verified 04/18/22 17:09 escitalopram [From Lexapro] AdvReac Intermediate Lightheaded Verified 04/18/22 17:09 sertraline [From Zoloft] AdvReac Intermediate Dizzy & Verified 04/18/22 17:09 Headache dicyclomine [From Bentyl] AdvReac Unknown Unknown Verified 04/18/22 17:09 ondansetron HCl AdvReac Unknown Migraine Verified 04/18/22 17:09 [From Zofran (as hydrochloride)] hydrocodone [From Vicodin] AdvReac Other Verified 04/18/22 17:09 ketorolac [From Toradol] AdvReac Other Verified 04/18/22 17:09 Family History Grandmother Diabetes Other Family history of skin cancer High cholesterol Hypertension Surgical History History of surgery on arm History of thyroidectomy History of total vaginal hysterectomy (TVH) (~03/22/22) Social History Smoking Status: Current every day smoker tobacco type: cigarettes Tobacco: How many years used: 13 Electronic Cigarette Use: not used second hand exposure: No alcohol intake: current alcohol intake frequency: holidays/special occasions only substance use type: does not use caffeine: Yes what type of physical activity do you participate in: none seatbelt use: always do you feel safe at home: Yes additional social history: emmy [place] ED Constitutional Constitutional ED: Denies chills, fever(s), subjective or sweats Eyes Eyes: Denies blurry vision, change in vision or diplopia ENT ENT ED: Denies ear pain, rhinorrhea or sore throat Cardiovascular Cardiovascular: Denies chest pain, orthopnea, palpitations or racing heartbeat Respiratory/Chest Respiratory/Chest: Reports dyspnea; Denies cough, dyspnea on exertion or orthopnea Gastrointestinal Gastrointestinal: Reports abdominal pain; Denies constipation, diarrhea, melena, nausea or vomiting Genitourinary Genitourinary ED: Denies dysuria, hematuria or urinary frequency Musculoskeletal Musculoskeletal: Reports other Details: Bilateral calf pain, swelling of the right lower extremity ; Denies arthralgias, back pain, myalgias or neck pain Integumentary Reports abscess; Denies Abrasions or rash Neurologic Neurologic: Denies headache(s), paresthesias or weakness Endocrine Endocrinology: Denies cold intolerance or heat intolerance Hematologic/Lymphatic Hematologic/Lymphatic: Reports none EXAM Physical Exam Const Vital Signs: 04/18/22 17:09 Temperature 97.7 F L Temperature Source Temporal Pulse Rate 102 H Respiratory Rate 14 Blood Pressure 123/76 H Blood Pressure Mean 91 Pulse Ox 99 Oxygen Delivery Method Room Air Positive well nourished, well developed and obese Constitutional Narrative: Patient appears uncomfortable. She has increased pain with minimal movement. General Appearance ED: well developed and pallor; Negative for cyanotic, diaphoretic or NAD Nutritional Appearance: obese HEENT Reports moist mucous membranes HEENT Narrative: Head is atraumatic normocephalic. Ears normal. Nares patent. Mucosa moist. Eyes PERRL and EOMs intact bilaterally General Eye ED: Negative for pale conjunctiva or scleral icterus Neck no lymphadenopathy, supple and no JVD Chest Wall inspection of chest normal and palpation of chest normal Resp normal respiratory effort and clear to auscultation bilaterally Cardio regular rate, regular rhythm, S1 normal heart sound, S2 normal heart sound and no murmurs GI no masses; Negative for non-tender, non-distended or hepatosplenomegaly Auscultation: hypoactive bowel sounds Palpation: soft and tender other (Diffuse) Extremity Negative for normal to inspection Extremity Narrative: Right lower extremity is increased in size compared to left. There is varicosities noted. There is tenderness along the distribution deep venous system. She has pain ovation left calf. There is no swelling or leg vein distention noted. General Extremety ED: Yes tenderness; Negative for edema General Extremity: Negative for edema Neuro oriented x3, CN's II-XII intact bilaterally and no sensory deficits noted Sensorium / Orientation: alert Motor Exam: strength 5/5 throughout Psych mental status grossly normal Skin no rashes or lesions noted, no wounds and skin turgor normal General Skin Exam: pallor; Negative for jaundice MDM MDM MDM Narrative Medical decision making narrative: With 2 operative procedures in the past month decreased mobility asymmetry and bilateral calf pain will obtain venous duplex study to assess for DVT. Patient does complain of numbness. The numbness is on the buccal surface of the upper lip. She has no other neurologic symptoms and has no neurologic findings. Lab Data Lab results narrative: Venous duplex study is negative. Radiography Diagnostic Testing: Clinical Impression(s) from Imaging Studies Venous Duplex 04/18/22 17:30 IMPRESSION: Normal bilateral lower extremity duplex venous ultrasound. Electronically Signed: Faye Whitaker MD at 18:41 EST Reading Location ID and State: [id number] / Tel , Service support , Discharge Plan Triage Chief Complaint: Numb/Ting ED Provider: Jacobs,Sorin Dx/Rx/DC Orders Clinical Impression: Pain and swelling of right lower leg, Pain of left calf Instructions: ED Muscle Spasm Prescriptions: No Action meclizine 25 mg tablet 25 mg PO BID PRN (Reason: dizziness) Qty: 30 1RF levothyroxine 137 mcg tablet 137 mcg PO DAILY amlodipine 5 mg tablet 5 mg PO DAILY ursodiol 300 mg capsule 300 mg PO BID vitamin E mixed 400 unit capsule 800 unit PO .qd oxycodone 5 mg tablet 5 mg PO Q8H PRN (Reason: pain) 3 Days Qty: 18 0RF sulfamethoxazole-trimethoprim [Bactrim DS] 800-160 mg tablet 1 tab PO BID 14 Days Qty: 28 0RF metronidazole 500 mg tablet 500 mg PO BID 14 Days Qty: 28 0RF hydroxyzine pamoate 50 mg capsule 50 mg PO TID PRN (Reason: anxiety) Qty: 20 0RF ketoprofen 75 mg capsule 75 mg PO Q6H PRN (Reason: Migraine Symptoms) Qty: 100 0RF Rx Instructions: 1 cap PO at on set of headache max of 3 in 24 hours, max 20 per month prochlorperazine maleate [Compazine] 10 mg tablet 10 mg PO BID PRN (Reason: Migraine Symptoms) Qty: 30 1RF linezolid [Zyvox] 600 mg tablet 600 mg PO Q12H 14 Days Qty: 28 0RF Primary Care Provider: Jose Alejandro London Referrals: Jose Alejandro London MD [Primary Care Provider] - As Needed Cassidy Moore MD [Med Staff - Active Staff] - Keep [facility] appointment Disposition Disposition: Home, Self Care
--- NOTE | 2022-04-18 17:30 | US_ITS ---
EXAM: US DUPLEX BILATERAL LOWER EXTREMITIES VEINS CLINICAL INDICATION: BILATERAL NUMBNESS AND TINGLING POSTERIOR CALF BILATERAL TECHNIQUE: Real-time duplex ultrasound scan of the bilateral lower extremity veins integrating B-mode two-dimensional vascular structure, Doppler spectral analysis, color flow Doppler imaging and compression. This report was created using [employer] report generation technology. COMPARISON: None. FINDINGS: RIGHT DEEP VEINS: Unremarkable. No DVT in the right common femoral, femoral, proximal deep femoral or popliteal veins. The veins demonstrate normal color flow, are normally compressible, with normal phasic flow and/or augmentation response. RIGHT SUPERFICIAL VEINS: Unremarkable. No thrombus in the visualized right great saphenous vein. LEFT DEEP VEINS: Unremarkable. No DVT in the left common femoral, femoral, proximal deep femoral or popliteal veins. The veins demonstrate normal color flow, are normally compressible, with normal phasic flow and/or augmentation response. LEFT SUPERFICIAL VEINS: Unremarkable. No thrombus in the visualized left great saphenous vein. SOFT TISSUES: No acute findings. No popliteal cyst. US/Venous Duplex Imag/Hoang Extrem IMPRESSION: Normal bilateral lower extremity duplex venous ultrasound. Electronically Signed: Faye Whitaker MD at 18:41 EST Reading Location ID and State: [id number] / Tel , Service support ,
== END 2022-04-18 20:22 | disposition home or self-care (01) ==
PROVIDERS: Emergency Provider Emergency Medicine; PCP Internal Medicine; Visit Provider Emergency Medicine
DX: M79.89 Other specified soft tissue disorders (principal); E11.9 Type 2 diabetes mellitus without complications; R06.02 Shortness of breath; M79.662 Pain in left lower leg; M79.661 Pain in right lower leg; F17.210 Nicotine dependence, cigarettes, uncomplicated; I10 Essential (primary) hypertension; E66.9 Obesity, unspecified; R20.0 Anesthesia of skin
CPT/HCPCS: 93970; 99283

== ENCOUNTER 2022-05-22 23:53 | Emergency (ER) | payer MEDICAID, SELFPAY ==
[2022-05-22 23:54] VITALS: BP 122/74; PULSE 80; RESP 16; TEMP 36.7; O2SAT 99; BMI 37.3
[2022-05-23 00:14] LABS: Absolute Lymphocyte Count 1.87 X10^3/uL (0.83-4.51); Absolute Neutrophil Count 2.3 X10^3/uL (2.0-7.7); Basophil# 0.03 X10^3/uL; Basophil% 0.6 % (0-1); Eosinophil# 0.22 X10^3/uL; Eosinophils% 4.5 % (0-5); Hematocrit 39.6 % (37-47); Hemoglobin 12.9 g/dL (12.0-15.0); Lymphocyte # 1.87 X10^3/ul (0.83-4.51); Lymphocyte % 38.4 % (19-41); Mean Corp Hgb Conc 32.6 g/dL (32-36); Mean Corpuscular Hgb 27.9 pg (27.0-32.0); Mean Corpuscular Volume 85.7 fL (81-99); Mean Platelet Vol. 10.8 fl (6.2-12.0); Monocyte# 0.48 X10^3/uL; Monocyte% 9.9 % (0-10); NRBC Flagged by Analyzer 0 % (0-5); Neutrophil # 2.26 X10^3/uL (2.7-7.7); Neutrophil % 46.4 % (47-70); Platelet Count 191 K/mm3 (150-450); RBC Distribution Width CV 15.9 % (11.6-14.6); RBC Distribution Width SD 49.7 fl (35.1-43.9); Red Blood Count 4.62 M/mm3 (4.2-5.4); White Blood Count 4.9 K/mm3 (4.4-11.0)
[2022-05-23 00:26] LABS: Mucous, Urine 0 SEEN /hpf (<or=2+); Red Blood Cells-Urine 0 SEEN /hpf (0-5); White Blood Cells 0 SEEN /hpf (0-5)
--- NOTE | 2022-05-23 00:46 | EDS_ITS ---
HPI History of Present Illness Chief Complaint: Abd Pain Informant: patient Narrative Narrative: Patient had a hysterectomy in March, all complicated postoperatively by intra-abdominal abscess development that was treated surgically with laparoscopy-assisted drainage. She states the right lower quadrant has been hurting since then, but today it has gotten a lot worse along with discomfort in her vagina. No bleeding, discharge, urinary symptoms, or problems with bowel movements. No nausea, vomiting, fevers. Advised by her technical staff assistant to come to the emergency department for further evaluation. [facility] Medical History Abdominal pain Acute bronchitis, unspecified Acute sinusitis, unspecified ADHD (attention deficit hyperactivity disorder), combined type Arthritis Back pain Back pain Bronchitis Cancer Cardiology follow-up encounter Cervical lymphadenopathy Cervical radiculopathy Chronic back pain Chronic low back pain Chronic pain Chronic RUQ pain Depression Easy bruising Ectopic cardiac beats Fatty liver Fibromyalgia NICOLÁS (generalized anxiety disorder) Almaz's thyroiditis Heartburn History of acne History of echocardiogram History of gestational diabetes History of pain when walking History of stress test Hypertension Hypocalcemia Injury of head and neck Left-sided low back pain with left-sided sciatica Localized swelling, mass and lump, neck Melanoma Migraine without aura and with status migrainosus, not intractable Morbid obesity MARCELINO (nonalcoholic steatohepatitis) Numbness and tingling of both upper extremities Numbness of both lower extremities Palpitations Post herpetic neuralgia Restless legs Right femoral fracture RUQ abdominal pain Syncope Thyroid disease Tinnitus Tobacco abuse Vertigo Home Medications meclizine 25 mg tablet 25 mg PO BID PRN dizziness #30 tabs 08/11/21 [Rx Last Taken Unknown] hydroxyzine pamoate 50 mg capsule 50 mg PO TID PRN anxiety #20 caps 02/11/22 [Rx Last Taken Unknown] ketoprofen 75 mg capsule 75 mg PO Q6H PRN Migraine Symptoms #100 caps 02/11/22 [Rx Last Taken Unknown] prochlorperazine maleate 10 mg tablet (Compazine) 10 mg PO BID PRN Migraine Symptoms #30 tabs 02/11/22 [Rx Last Taken Unknown] amlodipine 5 mg tablet 5 mg PO DAILY bp 04/12/22 [History Last Taken Unknown] levothyroxine 137 mcg tablet 137 mcg PO DAILY synthroid 04/12/22 [History Last Taken Unknown] ursodiol 300 mg capsule 300 mg PO BID thyroid 04/12/22 [History Last Taken Unknown] vitamin E mixed 400 unit capsule 800 unit PO .qd supplement 04/12/22 [History Last Taken Unknown] fluconazole 150 mg tablet (Diflucan) 150 mg PO Q3D 2 doses #2 tabs 05/11/22 [Rx Last Taken Unknown] nystatin 100,000 unit/gram topical cream 1 applic topical BID #30 grams 05/11/22 [Rx Last Taken Unknown] Allergy/AdvReac Type Severity Reaction Status Date / Time promethazine [From Phenergan] Allergy Unknown Unknown Verified 04/20/22 11:45 latex Allergy Itching Verified 04/20/22 11:45 naproxen Allergy Unknown Verified 04/20/22 11:45 Penicillins [PCN] Allergy Rash Verified 04/20/22 11:45 escitalopram [From Lexapro] AdvReac Intermediate Lightheaded Verified 04/20/22 11:45 sertraline [From Zoloft] AdvReac Intermediate Dizzy & Verified 04/20/22 11:45 Headache dicyclomine [From Bentyl] AdvReac Unknown Unknown Verified 04/20/22 11:45 hydrocodone [From Vicodin] AdvReac Other Verified 04/20/22 11:45 ketorolac [From Toradol] AdvReac Other Verified 04/20/22 11:45 Family History Grandmother Diabetes Other Family history of skin cancer High cholesterol Hypertension Surgical History History of surgery on arm History of thyroidectomy History of total vaginal hysterectomy (TVH) (~03/22/22) Social History Smoking Status: Current every day smoker tobacco type: cigarettes Tobacco: How many years used: 13 Electronic Cigarette Use: not used second hand exposure: No alcohol intake: current alcohol intake frequency: holidays/special occasions only substance use type: does not use caffeine: Yes what type of physical activity do you participate in: none seatbelt use: always do you feel safe at home: Yes additional social history: emmy [place] ED Constitutional Constitutional ED: Denies chills or fever(s) Eyes Eyes: Denies change in vision or diplopia ENT ENT ED: Denies rhinorrhea or sore throat Cardiovascular Cardiovascular: Denies chest pain or palpitations Respiratory/Chest Respiratory/Chest: Denies cough or dyspnea Gastrointestinal Gastrointestinal: Reports abdominal pain; Denies diarrhea, nausea or vomiting Genitourinary Genitourinary ED: Reports other Details: vaginal pain ; Denies dysuria, hematuria, low back pain, vaginal bleeding or vaginal discharge Musculoskeletal Musculoskeletal: Denies back pain or neck pain Integumentary Denies abscess or rash Neurologic Neurologic: Denies headache(s), paresthesias or weakness Psychiatric Psychiatric: Denies anxiety or suicidal thoughts EXAM Physical Exam Const Vital Signs: 05/22/22 23:54 Temperature 98.0 F Temperature Source Temporal Pulse Rate 80 Respiratory Rate 16 Blood Pressure 122/74 H Blood Pressure Mean 90 Pulse Ox 99 Oxygen Delivery Method Room Air Positive well nourished and well developed General Appearance ED: well developed and NAD HEENT Reports moist mucous membranes normocephalic and atraumatic Eyes PERRL and EOMs intact bilaterally Neck full ROM and supple Resp normal respiratory effort and clear to auscultation bilaterally Cardio regular rate, regular rhythm and no murmurs GI non-distended GI Narrative: Very tender distal in the right lower quadrant without guarding or rebound tenderness, mildly tender across the rest of the lower abdomen, no other areas of tenderness. All surgical incisions are well-healed without any signs of dehiscence or erythema. No palpable subcutaneous nodules. Auscultation: normoactive bowel sounds Palpation: soft Speculum Exam - Vagina: Negative for vaginal bleeding or vaginal discharge Back/Spine no CVA tenderness General Back: other FROM Extremity normal to inspection General Extremety ED: Negative for edema, pulses abnormal or tenderness General Extremity: Negative for edema or pulses abnormal Neuro oriented x3, CN's II-XII intact bilaterally and no sensory deficits noted Sensorium / Orientation: awake and alert Motor Exam: strength 5/5 throughout Skin no rashes or lesions noted and no wounds MDM MDM MDM Narrative Medical decision making narrative: Labs are very normal with a white blood count of 4.9 and no leftward shift or bandemia. Urine unremarkable. Differential we were considering recurrent abscess, as well as gynecologic and intestinal abnormalities. Patient asked me to discuss with her gynecology office on-call who was Riana Woodson. She knows the patient well. She states she has had the symptoms that the patient and I described chronically, including the vaginal discomfort, and the etiology is unknown, she was having this prior to her surgery. With a white blood count this low I met a very low suspicion of an intra-abdominal infection, and Ms. Woodson is in agreement that the patient does not require emergent imaging for what sounds like chronic symptoms that have an acute exacerbation. Discussed this with the patient she is okay with that and treating her pain here tonight. I ordered her IV medications, but she refuses those because the parenteral drugs do not make her feel well, she prefers pills which we will give her tonight prior to discharge for her symptoms. Lab Data Attestation: I reviewed the patient's lab results. Labs: Laboratory Results - last 24 hr 05/23/22 05/23/22 05/23/22 00:05 00:05 00:09 WBC 4.9 RBC 4.62 Hgb 12.9 Hct 39.6 MCV 85.7 MCH 27.9 MCHC 32.6 RDW Std Deviation 49.7 H RDW Coeff of Mikel 15.9 H Plt Count 191 MPV 10.8 Immature Gran % (Auto) 0.200 Neut % (Auto) 46.4 L Lymph % (Auto) 38.4 [place] % (Auto) 9.9 Eos % (Auto) 4.5 Baso % (Auto) 0.6 Absolute Neuts (auto) 2.3 Absolute Lymphs (auto) 1.87 Nucleated RBC % 0 Sodium 139 Potassium 3.7 Chloride 107 Carbon Dioxide 28.0 Anion Gap 4 L BUN 10 Creatinine 0.68 Estim Creat Clear Calc 108.10 Est GFR (MDRD) Af Amer 126 Est GFR (MDRD) Non-Af 104 BUN/Creatinine Ratio 14.6 Glucose 108 H Calcium 9.2 Urine Color Yellow Urine Clarity Sl. Cloudy Urine pH 6.0 Ur Specific [place] 1.025 Urine Protein 15 H Urine Glucose (UA) Normal Urine Ketones Negative Urine Occult Blood Negative Urine Nitrite Negative Urine Bilirubin Negative Urine Urobilinogen Normal Ur Leukocyte Esterase Negative Urine RBC 0 SEEN Urine WBC 0 SEEN Ur Squamous Epith Cells 5-10 SEEN Urine Bacteria RARE Urine Mucus 0 SEEN Discharge Plan Triage Chief Complaint: Abd Pain ED Provider: Ashutosh Barajas Dx/Rx/DC Orders Clinical Impression: Acute pain in female pelvis Instructions: ED Pelvic Pain, Unknown Cause Prescriptions: No Action meclizine 25 mg tablet 25 mg PO BID PRN (Reason: dizziness) Qty: 30 1RF levothyroxine 137 mcg tablet 137 mcg PO DAILY amlodipine 5 mg tablet 5 mg PO DAILY ursodiol 300 mg capsule 300 mg PO BID vitamin E mixed 400 unit capsule 800 unit PO .qd hydroxyzine pamoate 50 mg capsule 50 mg PO TID PRN (Reason: anxiety) Qty: 20 0RF ketoprofen 75 mg capsule 75 mg PO Q6H PRN (Reason: Migraine Symptoms) Qty: 100 0RF Rx Instructions: 1 cap PO at on set of headache max of 3 in 24 hours, max 20 per month prochlorperazine maleate [Compazine] 10 mg tablet 10 mg PO BID PRN (Reason: Migraine Symptoms) Qty: 30 1RF fluconazole [Diflucan] 150 mg tablet 150 mg PO Q3D Qty: 2 0RF Rx Instructions: take 3 days apart nystatin 100,000 unit/gram cream 1 applic topical BID Qty: 30 2RF Rx Instructions: apply to affected area twice a day Primary Care Provider: Jose Alejandro London Referrals: Jose Alejandro London MD [Primary Care Provider] - Dimple Han DO [Med Staff - Active Staff] - Keep Edwin appointment Disposition Disposition: Home, Self Care
[2022-05-23 00:55] LABS: Color, Urine Yellow (Yellow); Glucose, Dipstick Normal (Normal); Ketone-Dipstick Negative (Negative); Leukocyte Esterase-Dipstick Negative /ul (Negative); Nitrite-Dipstick Negative (Negative); Occult Blood-Urine Negative /ul (Negative); Protein-Dipstick 15 mg/dl (Negative); Specific Gravity, Urine 1.025 (1.002-1.030); Urine Bilirubin Dipstick Negative (Negative); Urine Clarity Sl. Cloudy (Clear); Urine Urobilinogen Normal (Normal)
[2022-05-23 00:59] LABS: Anion Gap 4 (5-15); BUN 10 mg/dL (7-18); BUN/Creat Ratio 14.6 RATIO (10-20); Calcium,Total 9.2 mg/dL (8.5-10.1); Chloride 107 mmol/L (98-107); Creatinine, Serum 0.68 mg/dL (0.55-1.02); EST Glomerular Filtration Rate 104 mL/min (>60); Est Glom Filt Rate - Afr Amer 126 mL/min (>60); Glucose 108 mg/dL (74-106); Potassium 3.7 mmol/L (3.5-5.1); Sodium Level 139 mmol/L (136-145)
[2022-05-23 01:20] LABS: Bacteria RARE /hpf (None Seen); Squamous Epithelial Cells - UA 5-10 SEEN /hpf (5-10)
[2022-05-23 02:21] VITALS: BP 122/82; PULSE 77; RESP 15; O2SAT 99
[2022-05-23] MEDS: oxyCODONE 5 MG Tablet 10 MG PO (02:34)
[2022-05-23] MEDS: Ondansetron ODT 4 MG Tablet 8 MG PO (02:34)
== END 2022-05-23 02:38 | disposition home or self-care (01) ==
PROVIDERS: Emergency Provider Emergency Medicine; PCP Internal Medicine; Visit Provider Emergency Medicine
DX: R10.2 Pelvic and perineal pain (principal); F17.210 Nicotine dependence, cigarettes, uncomplicated
CPT/HCPCS: J2405; 80048; 81001; 85025; 99283; A4216

== ENCOUNTER → 2022-05-30 | Outpatient (CLI) | payer MEDICAID, SELFPAY ==
[2022-05-30 12:47] LABS: Vitamin D,25 Hydroxy 17.6 ng/mL
[2022-05-30 12:53] LABS: Magnesium 2.1 mg/dL (1.6-2.6); Thyroid Stim Hormone (TSH) 1.56 uIU/mL (0.358-3.74)
== END | disposition home or self-care (01) ==
LOC: BIMLAB 10:14
PROVIDERS: PCP Internal Medicine; Referring Provider Physician Assistant; Visit Provider Physician Assistant
DX: E06.3 Autoimmune thyroiditis (principal); R53.83 Other fatigue; E55.9 Vitamin D deficiency, unspecified
CPT/HCPCS: 36415; 82306; 83735; 84443

== ENCOUNTER 2022-06-10 09:09 | Emergency (ER) | payer MEDICAID, SELFPAY ==
[2022-06-10 09:10] VITALS: BP 142/127; PULSE 96; RESP 15; TEMP 36.7; O2SAT 100; BMI 36.8
--- NOTE | 2022-06-10 09:28 | CT_ITS ---
STUDY: CT ABDOMEN AND PELVIS WITH CONTRAST REASON FOR EXAM: Female, 37 years old. Severe bilateral lower abdominal pain. RADIATION DOSAGE (If Supplied By Facility): CTDIvol = ( 18.06 ) mGy, DLP = ( 1235.51 ) mGycm TECHNIQUE: Transaxial images were obtained from the dome of the diaphragm to the symphysis pubis with oral contrast. Oral and amp; IV and amp; 100mL Isovue-300 was administered. Sagittal and coronal images were reconstructed. Individualized dose optimization techniques were used for this CT. COMPARISON: Comparison is made with prior study dated 04/14/2022. FINDINGS: Stable focal linear nodular scarring in the lateral aspect of the right lower lobe. The visualized portions of the heart are within normal limits. Normal liver. Normal gallbladder and extrahepatic biliary system. Normal spleen. Normal pancreas. Normal bilateral adrenal glands. Normal right kidney. Normal left kidney. There is a small hiatal hernia. Normal small intestine. Normal colon. The appendix is visualized and appears normal. Normal abdominal aorta. Normal inferior vena cava. There is borderline retroperitoneal lymphadenopathy with enlarged nodes no greater than 10mm in the short axis diameter. Normal urinary bladder. There is absence of the uterus consistent with a prior hysterectomy. Residual 3.6 cm x 3.2 cm rounded soft tissue density in the region of the vaginal vault on the right side. The previously seen abnormal fluid collection has resolved. This may represent residual postoperative changes. There is a small umbilical hernia containing fat. Normal osseous structures. CT/Abdomen/Pelvis W IV Cont ONLY IMPRESSION: Residual 3.2 cm x 3.6 cm rounded soft tissue density on the right side of the vaginal vault with mild increased markings in the surrounding peritoneal fat. This may represent residual postoperative changes. The previously seen abscess has cleared. Electronically Signed: Christiano Eduardo MD at 11:00 EST ,
--- NOTE | 2022-06-10 09:34 | EDS_ITS ---
HPI History of Present Illness Chief Complaint: Abd Pain Informant: patient Onset/Context/Timing Onset: Weeks Context: Sudden Onset Timing: Continuous Quality: Sharp to dull Location: Bilateral lower quadrant sharp pain to dull pain and sharp pain in the pelv Current Severity: Mild Maximum Severity: Severe Worsened by: Bending down, sitting Relieved by: Improves sitting in a hot tub Associated Symptoms Associated Symptoms: Nausea Narrative Narrative: Patient is a 37-year-old female status post total vaginal hysterectomy with a left oophorectomy by Dr. Cassidy Moore on March 22. The operative note indicated no complications. Patient underwent surgery on April 15 for pelvic abscess status post hysterectomy. There was a right ovarian cyst noted. Since development of abscess patient's had problems with pelvic pain. Pelvic pain was worse and patient was seen by Dr. Dimple Garcia on May 25. Diagnosis was ovarian cyst, acute pain and pelvis as well as postoperative pain and abscess. Plan was repeat ultrasound in 4 weeks if no resolution. Recommendation was rest, mild pain medicine, warm baths and if she becomes worse to return to the emergency room with imaging. [facility] Medical History Abdominal pain Acute bronchitis, unspecified Acute sinusitis, unspecified ADHD (attention deficit hyperactivity disorder), combined type Arthritis Back pain Back pain Bronchitis Cancer Cardiology follow-up encounter Cervical lymphadenopathy Cervical radiculopathy Chronic back pain Chronic low back pain Chronic pain Chronic RUQ pain Depression Easy bruising Ectopic cardiac beats Fatty liver Fibromyalgia NICOLÁS (generalized anxiety disorder) Almaz's thyroiditis Heartburn History of acne History of echocardiogram History of gestational diabetes History of pain when walking History of stress test Hypertension Hypocalcemia Injury of head and neck Left-sided low back pain with left-sided sciatica Localized swelling, mass and lump, neck Melanoma Migraine without aura and with status migrainosus, not intractable Morbid obesity MARCELINO (nonalcoholic steatohepatitis) Numbness and tingling of both upper extremities Numbness of both lower extremities Palpitations Post herpetic neuralgia Restless legs Right femoral fracture RUQ abdominal pain Syncope Thyroid disease Tinnitus Tobacco abuse Vertigo Home Medications vitamin E mixed 400 unit capsule 800 unit PO .qd supplement 04/12/22 [History Last Taken Unknown] amlodipine 5 mg tablet 5 mg PO DAILY bp #90 tabs 05/30/22 [Rx Last Taken Unknown] cholecalciferol (vitamin D3) 1,250 mcg (50,000 unit) capsule 1,250 mcg PO QWEEK #14 caps 05/30/22 [Rx Last Taken Unknown] hydroxyzine pamoate 50 mg capsule 50 mg PO TID PRN anxiety #20 caps 05/30/22 [Rx Last Taken Unknown] ketoprofen 75 mg capsule 75 mg PO Q6H PRN Migraine Symptoms #100 caps 05/30/22 [Rx Last Taken Unknown] meclizine 25 mg tablet 25 mg PO BID PRN dizziness #30 tabs 05/30/22 [Rx Last Taken Unknown] prochlorperazine maleate 10 mg tablet (Compazine) 10 mg PO BID PRN Migraine Symptoms #30 tabs 05/30/22 [Rx Last Taken Unknown] ursodiol 300 mg capsule 300 mg PO BID #180 caps 05/30/22 [Rx Last Taken Unknown] levothyroxine 137 mcg tablet 137 mcg PO DAILY synthroid #90 tabs 05/31/22 [Rx Last Taken Unknown] Allergy/AdvReac Type Severity Reaction Status Date / Time promethazine [From Phenergan] Allergy Unknown Unknown Verified 06/10/22 09:13 latex Allergy Itching Verified 06/10/22 09:13 naproxen Allergy Unknown Verified 06/10/22 09:13 Penicillins [PCN] Allergy Rash Verified 06/10/22 09:13 escitalopram [From Lexapro] AdvReac Intermediate Lightheaded Verified 06/10/22 09:13 sertraline [From Zoloft] AdvReac Intermediate Dizzy & Verified 06/10/22 09:13 Headache dicyclomine [From Bentyl] AdvReac Unknown Unknown Verified 06/10/22 09:13 hydrocodone [From Vicodin] AdvReac Other Verified 06/10/22 09:13 ketorolac [From Toradol] AdvReac Other Verified 06/10/22 09:13 Family History Grandmother Diabetes Other Family history of skin cancer High cholesterol Hypertension Surgical History History of surgery on arm History of thyroidectomy History of total vaginal hysterectomy (TVH) (~03/22/22) Status post incision and drainage (~04/15/22) Social History Smoking Status: Current every day smoker tobacco type: cigarettes Tobacco: How many years used: 13 Electronic Cigarette Use: not used second hand exposure: No alcohol intake: current alcohol intake frequency: holidays/special occasions o nly substance use type: does not use caffeine: Yes what type of physical activity do you participate in: none seatbelt use: always do you feel safe at home: Yes additional social history: emmy [place] ED Constitutional Constitutional ED: Denies chills, fever(s), subjective, sweats or weight loss Eyes Eyes: Denies blurry vision, change in vision or diplopia ENT ENT ED: Denies ear pain, rhinorrhea or sore throat Cardiovascular Cardiovascular: Denies chest pain, orthopnea, palpitations, paroxysmal nocturnal dyspnea or racing heartbeat Respiratory/Chest Respiratory/Chest: Denies cough, dyspnea, dyspnea on exertion, orthopnea or paroxysmal nocturnal dyspnea Gastrointestinal Gastrointestinal: Reports abdominal pain and nausea; Denies constipation, diarrhea, melena or vomiting Genitourinary Genitourinary ED: Denies dysuria, hematuria or urinary frequency Musculoskeletal Musculoskeletal: Reports back pain and other Details: Back pain is chronic. ; Denies arthralgias, myalgias or neck pain Integumentary Denies Abrasions or rash Neurologic Neurologic: Denies headache(s), paresthesias or weakness Psychiatric Psychiatric: Denies anxiety or depression Endocrine Endocrinology: Denies polydipsia or polyuria Hematologic/Lymphatic Hematologic/Lymphatic: Reports systems reviewed and no addt'l complaints, except as documented EXAM Physical Exam Const Vital Signs: 06/10/22 09:10 Temperature 98.1 F Temperature Source Temporal Pulse Rate 96 Respiratory Rate 15 Blood Pressure 142/127 H Blood Pressure Mean 132 Pulse Ox 100 Oxygen Delivery Method Room Air Positive well nourished, well developed and obese Constitutional Narrative: Patient appears uncomfortable. General Appearance ED: well developed; Negative for cyanotic, diaphoretic or pallor Nutritional Appearance: obese HEENT Reports moist mucous membranes HEENT Narrative: Head is atraumatic normocephalic. Ears normal. Nares patent. Uvula midline. No deviation of her protrusion. Eyes PERRL and EOMs intact bilaterally General Eye ED: Negative for pale conjunctiva or scleral icterus Neck no lymphadenopathy, supple and no JVD Chest Wall inspection of chest normal and palpation of chest normal Resp normal respiratory effort and clear to auscultation bilaterally Cardio regular rate, regular rhythm, S1 normal heart sound, S2 normal heart sound and no murmurs GI non-tender, non-distended and no masses; Negative for hepatosplenomegaly GI Narrative: Incision site is well-healed without evidence infection. There is no fluctuance in the area. Inspection: Negative for abdominal distention Auscultation: hypoactive bowel sounds Palpation: soft, tender LLQ and RLQ, guarding LLQ and RLQ and rebound tenderness present; Negative for splenomegaly or mass Back/Spine no CVA tenderness Cervical Spine: Negative for cervical spine tenderness Thoracic Spine / Upper Back: Negative for thoracic spinal tenderness Lumbar Spine / Lower Back: Negative for lumbar spinal tenderness Extremity normal to inspection General Extremety ED: Negative for edema or tenderness General Extremity: Negative for edema Neuro oriented x3, CN's II-XII intact bilaterally and no sensory deficits noted Sensorium / Orientation: alert Psych mental status grossly normal Skin no rashes or lesions noted, no wounds and skin turgor normal General Skin Exam: Negative for jaundice or pallor MDM MDM MDM Narrative Medical decision making narrative: Patient presents with worsening lower abdominal pain. This may represent adhesions, recurrent infection, ruptured ovarian cyst, doubt ovarian torsion based on report from office visit dated May 25, 2013. Doubt urinary symptoms. Patient was offered pain medicine which she declined. She was aletha ated with Zofran for nausea. Records from outside facilities were reviewed and documented in the HPI narrative. Lab Data Attestation: I reviewed the patient's lab results. Lab results narrative: Patient is neutropenic with no shift. H&H is unremarkable. Labs: Laboratory Results - last 24 hr 06/10/22 06/10/22 09:43 09:43 WBC 3.6 L RBC 4.73 Hgb 12.9 Hct 40.4 MCV 85.4 MCH 27.3 MCHC 31.9 L RDW Std Deviation 46.7 H RDW Coeff of Mikel 14.9 H Plt Count 166 MPV 10.8 Immature Gran % (Auto) 0.300 Neut % (Auto) 56.4 Lymph % (Auto) 26.4 [place] % (Auto) 8.3 Eos % (Auto) 8.0 H Baso % (Auto) 0.6 Absolute Neuts (auto) 2.1 Absolute Lymphs (auto) 0.96 Nucleated RBC % 0 Sodium 139 Potassium 3.9 Chloride 106 Carbon Dioxide 26.0 Anion Gap 7 BUN 6 L Creatinine 0.67 Estim Creat Clear Calc 109.71 Est GFR (MDRD) Af Amer 129 Est GFR (MDRD) Non-Af 107 BUN/Creatinine Ratio 9.0 L Glucose 108 H Calcium 8.3 L Radiography Diagnostic Testing: Clinical Impression(s) from Imaging Studies Abdomen/Pelvis CT 06/10/22 09:28 IMPRESSION: Residual 3.2 cm x 3.6 cm rounded soft tissue density on the right side of the vaginal vault with mild increased markings in the surrounding peritoneal fat. This may represent residual postoperative changes. The previously seen abscess has cleared. Electronically Signed: Christiano Eduardo MD at 11:00 EST , CT was reviewed by me. Report by radiologist was read. Results were reviewed with patient. She was told the cause of her pain is unknown and she will need to follow-up with Dr. Cassidy mejia Discharge Plan Triage Chief Complaint: Abd Pain ED Provider: Sorin Jacobs Dx/Rx/DC Orders Clinical Impression: Pelvic pain, MARCELINO (nonalcoholic steatohepatitis), Abdominal pain, bilateral lower quadrant, Neutropenia, Hx of type 2 diabetes mellitus Instructions: ED Pain, Acute, Uncertain Cause Prescriptions: No Action amlodipine 5 mg tablet 5 mg PO DAILY Qty: 90 1RF hydroxyzine pamoate 50 mg capsule 50 mg PO TID PRN (Reason: anxiety) Qty: 20 0RF meclizine 25 mg tablet 25 mg PO BID PRN (Reason: dizziness) Qty: 30 1RF prochlorperazine maleate [Compazine] 10 mg tablet 10 mg PO BID PRN (Reason: Migraine Symptoms) Qty: 30 1RF levothyroxine 137 mcg tablet 137 mcg PO DAILY Qty: 90 1RF vitamin E mixed 400 unit capsule 800 unit PO .qd ursodiol 300 mg capsule 300 mg PO BID Qty: 180 1RF ketoprofen 75 mg capsule 75 mg PO Q6H PRN (Reason: Migraine Symptoms) Qty: 100 0RF Rx Instructions: 1 cap PO at on set of headache max of 3 in 24 hours, max 20 per month cholecalciferol (vitamin D3) 1,250 mcg (50,000 unit) capsule 1,250 mcg PO QWEEK Qty: 14 1RF Primary Care Provider: Jose Alejandro London Referrals: Jose Alejandro London MD [Primary Care Provider] - Cassidy Moore MD [Med Staff - Active Staff] - 3-5 Days if not improving Disposition Disposition: Home, Self Care
[2022-06-10] MEDS: 0.9% Normal Saline 1,000 ML 125 ML IV (09:42)
[2022-06-10] MEDS: Ondansetron 4 MG/2 ML Vial IV (09:42)
[2022-06-10 09:52] LABS: Absolute Lymphocyte Count 0.96 X10^3/uL (0.83-4.51); Absolute Neutrophil Count 2.1 X10^3/uL (2.0-7.7); Basophil# 0.02 X10^3/uL; Basophil% 0.6 % (0-1); Eosinophil# 0.29 X10^3/uL; Hematocrit 40.4 % (37-47); Hemoglobin 12.9 g/dL (12.0-15.0); Lymphocyte # 0.96 X10^3/ul (0.83-4.51); Lymphocyte % 26.4 % (19-41); Mean Corp Hgb Conc 31.9 g/dL (32-36); Mean Corpuscular Hgb 27.3 pg (27.0-32.0); Mean Corpuscular Volume 85.4 fL (81-99); Mean Platelet Vol. 10.8 fl (6.2-12.0); Monocyte% 8.3 % (0-10); NRBC Flagged by Analyzer 0 % (0-5); Neutrophil # 2.05 X10^3/uL (2.7-7.7); Neutrophil % 56.4 % (47-70); Platelet Count 166 K/mm3 (150-450); RBC Distribution Width CV 14.9 % (11.6-14.6); RBC Distribution Width SD 46.7 fl (35.1-43.9); Red Blood Count 4.73 M/mm3 (4.2-5.4); White Blood Count 3.6 K/mm3 (4.4-11.0)
[2022-06-10 10:07] LABS: Anion Gap 7 (5-15); BUN 6 mg/dL (7-18); Calcium,Total 8.3 mg/dL (8.5-10.1); Chloride 106 mmol/L (98-107); Creatinine, Serum 0.67 mg/dL (0.55-1.02); EST Glomerular Filtration Rate 107 mL/min (>60); Est Glom Filt Rate - Afr Amer 129 mL/min (>60); Estimated Creatinine Clearance 109.71 ml/min; Glucose 108 mg/dL (74-106); Potassium 3.9 mmol/L (3.5-5.1); Sodium Level 139 mmol/L (136-145)
== END 2022-06-10 11:29 | disposition home or self-care (01) ==
PROVIDERS: Emergency Provider Emergency Medicine; PCP Internal Medicine; Visit Provider Emergency Medicine
DX: K75.81 Nonalcoholic steatohepatitis (NASH) (principal); D70.9 Neutropenia, unspecified; E11.9 Type 2 diabetes mellitus without complications; R11.0 Nausea; F17.210 Nicotine dependence, cigarettes, uncomplicated; G89.18 Other acute postprocedural pain; I10 Essential (primary) hypertension; N83.201 Unspecified ovarian cyst, right side; R10.2 Pelvic and perineal pain
CPT/HCPCS: 74177; 80048; 85025; 96361; 96374; 99283; J7030; Q9967; A4216; J2405

== ENCOUNTER → 2022-06-22 | Outpatient (CLI) | payer MEDICAID, SELFPAY ==
--- NOTE | 2022-06-22 12:59 | US_ITS ---
STUDY: ULTRASOUND OF THE FEMALE PELVIS - COMPLETE REASON FOR EXAM: Female, 37 years old. Ovarian cyst LMP: The patient is status post hysterectomy. TECHNIQUE: Transabdominal and Transvaginal TECHNICAL QUALITY: Adequate. COMPARISON: Comparison is made with prior study dated 09/23/2021. FINDINGS: The patient is status post hysterectomy. The right ovary is visualized. The right ovary measures 5.5 cm x 5.2 cm x 4.6 cm. There is a 4.2 cm x 4.5 cm x 3.2 cm complex solid and cystic mass in the right ovary. Follow-up is recommended. There is no visualized right adnexal mass or complex lesion. There is normal arterial and normal venous vascularity. The patient is status post left oophorectomy. There is no fluid in the cul-de-sac. The pre void volume of the bladder was 293.5 ml. US/Pelvic (Non ) IMPRESSION: Status post hysterectomy and left oophorectomy. 4.2 cm x 4.5 cm x 3.2 cm complex solid and cystic mass in the right ovary. Follow-up is recommended. Electronically Signed: Christiano Eduardo MD at 15:26 EST ,
== END | disposition home or self-care (01) ==
LOC: US 12:58
PROVIDERS: PCP Internal Medicine; Visit Provider Obstetrics & Gynecology
DX: N83.201 Unspecified ovarian cyst, right side (principal); R10.2 Pelvic and perineal pain; Z90.710 Acquired absence of both cervix and uterus
CPT/HCPCS: 76830; 76856

== ENCOUNTER → 2022-07-13 | Outpatient (CLI) | payer MEDICAID, SELFPAY ==
--- NOTE | 2022-07-13 13:05 | US_ITS ---
STUDY: ULTRASOUND OF THE FEMALE PELVIS - COMPLETE REASON FOR EXAM: Female, 37 years old. Pelvic pain. Right ovarian cyst. LMP: Unknown. TECHNIQUE: Transabdominal and Transvaginal TECHNICAL QUALITY: Adequate. COMPARISON: Pelvic ultrasound, June 22, 2022. FINDINGS: The uterus is surgically absent. The right ovary is visualized. The right ovary measures 4.6 x 3.4 x 3.2 cm. There are multiple follicles of the right ovary with a 1.7 x 1.9 x 1.9 dominant simple cyst. There is no visualized right adnexal mass or complex lesion. There is normal arterial and normal venous vascularity. Status post left oophorectomy. There is no fluid in the cul-de-sac. The urinary bladder is grossly normal. Polycystic ovary disease: No. US/Pelvic (Non ) IMPRESSION: Simple cyst in the right ovary. The complex cyst seen at the previous study is no longer seen. Electronically Signed: Ruben Stone DO at 17:11 EST ,
== END | disposition home or self-care (01) ==
LOC: US 13:04
PROVIDERS: PCP Internal Medicine; Referring Provider Obstetrics & Gynecology; Visit Provider Obstetrics & Gynecology
DX: N83.209 Unspecified ovarian cyst, unspecified side (principal)
CPT/HCPCS: 76830; 76856

== ENCOUNTER → 2022-07-14 | Outpatient (CLI) | payer MEDICAID, SELFPAY ==
[2022-07-14 15:23] LABS: Erythrocyte Sedimentation Rate 2 mm/hr (0-30)
[2022-07-14 15:25] LABS: Absolute Lymphocyte Count 1.51 X10^3/uL (0.83-4.51); Absolute Neutrophil Count 3.9 X10^3/uL (2.0-7.7); Basophil# 0.03 X10^3/uL; Basophil% 0.5 % (0-1); Eosinophil# 0.18 X10^3/uL; Eosinophils% 2.9 % (0-5); Hematocrit 42.8 % (37-47); Hemoglobin 13.7 g/dL (12.0-15.0); Lymphocyte # 1.51 X10^3/ul (0.83-4.51); Lymphocyte % 24.5 % (19-41); Mean Corpuscular Hgb 27.7 pg (27.0-32.0); Mean Corpuscular Volume 86.5 fL (81-99); Mean Platelet Vol. 11.2 fl (6.2-12.0); Monocyte# 0.49 X10^3/uL; Monocyte% 7.9 % (0-10); NRBC Flagged by Analyzer 0 % (0-5); Neutrophil # 3.94 X10^3/uL (2.7-7.7); Neutrophil % 63.9 % (47-70); Platelet Count 180 K/mm3 (150-450); RBC Distribution Width CV 14.3 % (11.6-14.6); RBC Distribution Width SD 44.9 fl (35.1-43.9); Red Blood Count 4.95 M/mm3 (4.2-5.4); White Blood Count 6.2 K/mm3 (4.4-11.0)
[2022-07-14 15:47] LABS: ALB/GLOB Ratio 1.1 RATIO (0.9-2.4); AST(SGOT) 15 U/L (15-37); Alanine Aminotransfer ALT/SGPT 25 U/L (13-56); Albumin, Serum 3.7 g/dL (3.2-5.0); Alkaline Phosphatase 60 U/L (45-117); Anion Gap 5 (5-15); BUN 6 mg/dL (7-18); BUN/Creat Ratio 7.2 RATIO (10-20); CRP < 2.90 mg/L (0.0-3.0); Calcium,Total 9.2 mg/dL (8.5-10.1); Chloride 103 mmol/L (98-107); Creatinine, Serum 0.83 mg/dL (0.55-1.02); EST Glomerular Filtration Rate 83 mL/min (>60); Est Glom Filt Rate - Afr Amer 100 mL/min (>60); Globulin 3.5 g/dL (2.2-4.2); Glucose 118 mg/dL (74-106); Potassium 3.4 mmol/L (3.5-5.1); Protein, Total 7.2 g/dL (6.4-8.2); Sodium Level 138 mmol/L (136-145)
[2022-07-16 16:09] LABS: Anti-Centromere B Ab <0.2 AI (0.0-0.9); Anti-Chromatin <0.2 AI (0.0-0.9); Anti-Jo <0.2 AI (0.0-0.9); Anti-Scleroderma-70 AB <0.2 AI (0.0-0.9); RNP Ab 0.3 AI (0.0-0.9); SJOGREN'S Anti-SS-A test < 0.2 AI (0.0-0.9); SJOGREN'S Anti-SS-B test < 0.2 AI (0.0-0.9); Smith Ab <0.2 AI (0.0-0.9)
[2022-07-17 09:15] LABS: Anti-dsDNA Ab <1 IU/mL (0-9)
[2022-07-18 16:08] LABS: Cytoplasmic Ab (C-ANCA) <1:20 titer (Neg:<1:20); Endomysial Antibody IgA Negative (Negative)
[2022-07-18 21:04] LABS: Immunoglobulin A 19 mg/dL (87-352); Perinuclear Ab (P-ANCA) <1:20 titer (Neg:<1:20); t-Transglutaminase IgA <2 U/mL (0-3)
== END | disposition home or self-care (01) ==
LOC: LAB 14:42
PROVIDERS: PCP Internal Medicine; Visit Provider Nurse Practitioner Adult Health
DX: R10.11 Right upper quadrant pain (principal)
CPT/HCPCS: 36415; 80053; 82784; 83516; 85025; 85652; 86140; 86225; 86235; 86255; 86256

== ENCOUNTER 2022-07-17 18:22 | Emergency (ER) | payer MEDICAID, SELFPAY ==
[2022-07-17 18:22] VITALS: BP 144/95; PULSE 95; RESP 14; TEMP 36.8; O2SAT 100; BMI 36.8
[2022-07-17 18:35] VITALS: BP 125/83; PULSE 109; RESP 19; O2SAT 100
--- NOTE | 2022-07-17 18:41 | EKG12_ITS ---
Test Reason : DYSRYTHMIA Blood Pressure : / mmHG Vent. Rate : 085 BPM Atrial Rate : 085 BPM P-R Int : 168 ms QRS Dur : 088 ms QT Int : 356 ms P-R-T Axes : 064 066 054 degrees QTc Int : 423 ms Normal sinus rhythm Normal ECG Confirmed by ANNA HARTMAN, SHAYNA ([id number]), editor publications JULIO HDEZ ([id number]) on 07/19/2022 9:43:59 AM Referred By: LILIANE Confirmed By:SHAYNA CASTILLO MD
[2022-07-17] MEDS: LORazepam 1 MG Tablet PO (19:07)
--- NOTE | 2022-07-17 19:11 | EX.ED.DYSGE1 ---
HPI <MARY ELLEN Griffith - Last Filed: 07/17/22 20:26> History of Present Illness Chief Complaint: Chest Pain Narrative Narrative: Patient is a 37-year-old female with history of hypothyroidism obesity ADHD, anxiety who presents to the emergency department with concerns of chest pain. Patient states its been on and off for multiple days however for the last 4 hours has been nonstop. Patient states she has some pain with palpation, she feels a pressure sensation in the middle of her chest. She denies any actual shortness of breath however states he does have a cough. Denies any fever or chills. Denies any significant cardiac history. Patient is also concerned because she has been having increased stress secondary to her being ill. Patient here for evaluation [facility] <MARY ELLEN Griffith - Last Filed: 07/17/22 20:26> [facility] Medical History (Updated 07/17/22 @ 20:21 by MARY ELLEN Griffith) Abdominal pain Acute bronchitis, unspecified Acute sinusitis, unspecified ADHD (attention deficit hyperactivity disorder), combined type Arthritis Back pain Back pain Bronchitis Cancer Cardiology follow-up encounter Cervical lymphadenopathy Cervical radiculopathy Chronic back pain Chronic low back pain Chronic pain Chronic RUQ pain Depression Easy bruising Ectopic cardiac beats Fatty liver Fibromyalgia NICOLÁS (generalized anxiety disorder) Almaz's thyroiditis Heartburn History of acne History of echocardiogram History of gestational diabetes History of pain when walking History of stress test Hypertension Hypocalcemia Injury of head and neck Left-sided low back pain with left-sided sciatica Localized swelling, mass and lump, neck Melanoma Migraine without aura and with status migrainosus, not intractable Morbid obesity MARCELINO (nonalcoholic steatohepatitis) Numbness and tingling of both upper extremities Numbness of both lower extremities Palpitations Post herpetic neuralgia Restless legs Right femoral fracture RUQ abdominal pain Syncope Thyroid disease Tinnitus Tobacco abuse Vertigo Home Medications vitamin E mixed 400 unit capsule 800 unit PO .qd supplement 04/12/22 [History Last Taken Unknown] amlodipine 5 mg tablet 5 mg PO DAILY bp #90 tabs 05/30/22 [Rx Last Taken Unknown] cholecalciferol (vitamin D3) 1,250 mcg (50,000 unit) capsule 1,250 mcg PO QWEEK #14 caps 05/30/22 [Rx Last Taken Unknown] hydroxyzine pamoate 50 mg capsule 50 mg PO TID PRN anxiety #20 caps 05/30/22 [Rx Last Taken Unknown] ketoprofen 75 mg capsule 75 mg PO Q6H PRN Migraine Symptoms #100 caps 05/30/22 [Rx Last Taken Unknown] meclizine 25 mg tablet 25 mg PO BID PRN dizziness #30 tabs 05/30/22 [Rx Last Taken Unknown] prochlorperazine maleate 10 mg tablet (Compazine) 10 mg PO BID PRN Migraine Symptoms #30 tabs 05/30/22 [Rx Last Taken Unknown] ursodiol 300 mg capsule 300 mg PO BID #180 caps 05/30/22 [Rx Last Taken Unknown] levothyroxine 137 mcg tablet 137 mcg PO DAILY synthroid #90 tabs 05/31/22 [Rx Last Taken Unknown] albuterol sulfate 2.5 mg/3 mL (0.083 %) solution for nebulization 2.5 mg (3 mL) inhalation Q6H PRN shortness of breath or wheezing #90 mL 06/27/22 [Rx Last Taken Unknown] Allergy/AdvReac Type Severity Reaction Status Date / Time promethazine [From Phenergan] Allergy Unknown Unknown Verified 07/17/22 18:32 latex Allergy Itching Verified 07/17/22 18:32 naproxen Allergy Unknown Verified 07/17/22 18:32 Penicillins [PCN] Allergy Rash Verified 07/17/22 18:32 escitalopram [From Lexapro] AdvReac Intermediate Lightheaded Verified 07/17/22 18:32 sertraline [From Zoloft] AdvReac Intermediate Dizzy & Verified 07/17/22 18:32 Headache dicyclomine [From Bentyl] AdvReac Unknown Unknown Verified 07/17/22 18:32 hydrocodone [From Vicodin] AdvReac Other Verified 07/17/22 18:32 ketorolac [From Toradol] AdvReac Other Verified 07/17/22 18:32 Family History Grandmother Diabetes Other Family history of skin cancer High cholesterol Hypertension Surgical History History of surgery on arm History of thyroidectomy History of total vaginal hysterectomy (TVH) (~03/22/22) Status post incision and drainage (~04/15/22) Social History Smoking Status: Current every day smoker tobacco type: cigarettes Tobacco: How many years used: 13 Electronic Cigarette Use: not used second hand exposure: No alcohol intake: current alcohol intake frequency: holidays/special occasions only substance use type: does not use caffeine: Yes what type of physical activity do you participate in: none seatbelt use: always do you feel safe at home: Yes additional social history: emmy ROS <MARY ELLEN Griffith - Last Filed: 07/17/22 20:26> ROS ED ROS Narrative Constitutional: Negative for fever, chills, weight loss, weakness Eyes: Negative for vision loss, vision change, double vision ENT: Negative for any sore throat, ear pain, congestion Cardiovascular: Negative for any tightness, palpitations. Positive for chest pain, chest pressure Respiratory: Negative for any cough, sputum production, hemoptysis, dyspnea, dyspnea on exertion, orthopnea Gastrointestinal: Negative for any abdominal pain, nausea, vomiting, diarrhea, constipation, blood in stool, blood in vomit : Negative for any urinary frequency, dysuria, retention, blood in urine Muscle skeletal: Negative for any muscle joint pain, stiffness, myalgias, arthralgias, neck pain, back pain Neurological: Negative for any headache, syncope, numbness or tingling, dizziness Skin: Negative for any rashes, lumps, itching, abrasions, lacerations Psychiatric: Negative for any depression, stress, suicidal ideation, homicidal ideation. Positive for anxiety Hematologic: Negative for any easy bruising, excessive bruising, easy bleeding Allergies: Negative for any eczema, hives, rash EXAM <MARY ELLEN Griffith - Last Filed: 07/17/22 20:26> Physical Exam Narrative Exam Narrative: Vital signs reviewed. Patient alert and orient x4. Patient appears well. In no distress HEET: Head normocephalic atraumatic, TMs clear bilaterally. Posterior pharynx is clear, moist mucous membranes. Nares clear bilaterally. Neck: Supple with no lymphadenopathy or tenderness. No signs of meningismus, negative jolt sign. Cardiac: Regular rate and rhythm no murmurs gallops or rubs, equal peripheral pulses bilaterally. Respiratory: Lungs clear to auscultation bilaterally. No chest tenderness. Abdomen: Soft, nontender, nondistended. No abdominal bruit or pulsatile masses. No hepatosplenomegaly Extremities: No peripheral edema, no signs of gross trauma or deformity. Active full range of motion of all extremities. Neuro: Cranial nerves II through XII intact, no focal neurological deficits. Skin: Clean dry and intact with no rash, purpura, petechiae, vesicles or pustules. Backs/flank: No CVA tenderness, no midline spinal tenderness, no deformity. Psych: Normal mood and affect. No SI, HI or acute psychosis. Const Vital Signs: 07/17/22 18:22 07/17/22 18:33 07/17/22 18:35 Temperature 98.2 F Temperature Source Temporal Pulse Rate 95 109 H Respiratory Rate 14 19 H Respiratory Effort Normal Non-Labored Blood Pressure 144/95 H 125/83 H Blood Pressure Mean 111 97 Pulse Ox 100 100 Oxygen Delivery Method Room Air Room Air 07/17/22 20:31 07/17/22 20:31 Temperature Temperature Source Pulse Rate 83 83 Respiratory Rate 24 H 24 H Respiratory Effort Blood Pressure 121/81 H 121/81 H Blood Pressure Mean 94 Pulse Ox 100 121 Oxygen Delivery Method Room Air Positive well nourished and well developed General Appearance ED: well developed <Dr. Drake Guzman DO - Last Filed: 07/17/22 22:29> Physical Exam Const Vital Signs: 07/17/22 18:22 07/17/22 18:33 07/17/22 18:35 Temperature 98.2 F Temperature Source Temporal Pulse Rate 95 109 H Respiratory Rate 14 19 H Respiratory Effort Normal Non-Labored Blood Pressure 144/95 H 125/83 H Blood Pressure Mean 111 97 Pulse Ox 100 100 Oxygen Delivery Method Room Air Room Air 07/17/22 20:31 07/17/22 20:31 Temperature Temperature Source Pulse Rate 83 83 Respiratory Rate 24 H 24 H Respiratory Effort Blood Pressure 121/81 H 121/81 H Blood Pressure Mean 94 Pulse Ox 100 121 Oxygen Delivery Method Room Air MDM <MARY ELLEN Griffith - Last Filed: 07/17/22 20:26> MDM Lab Data Labs: Laboratory Results - last 24 hr 07/17/22 07/17/22 19:00 19:00 WBC 4.1 L RBC 4.75 Hgb 13.1 Hct 41.0 MCV 86.3 MCH 27.6 MCHC 32.0 RDW Std Deviation 43.2 RDW Coeff of Mikel 13.9 Plt Count 160 MPV 11.2 Immature Gran % (Auto) 0.200 Neut % (Auto) 50.5 Lymph % (Auto) 36.8 [place] % (Auto) 8.6 Eos % (Auto) 3.2 Baso % (Auto) 0.7 Absolute Neuts (auto) 2.1 Absolute Lymphs (auto) 1.50 Nucleated RBC % 0 Sodium 140 Potassium 3.4 L Chloride 104 Carbon Dioxide 29.0 Anion Gap 7 BUN 7 Creatinine 0.75 Estim Creat Clear Calc 98.01 Est GFR (MDRD) Af Amer 113 Est GFR (MDRD) Non-Af 94 BUN/Creatinine Ratio 9.3 L Glucose 123 H Calcium 9.1 Total Bilirubin 0.40 AST 10 L ALT 24 Alkaline Phosphatase 60 Troponin I High Sens < 3 L Total Protein 6.8 Albumin 3.6 Globulin 3.2 Albumin/Globulin Ratio 1.1 Lipase 120 TSH 1.37 Radiography Diagnostic Testing: Clinical Impression(s) from Imaging Studies Chest X-Ray 07/17/22 20:00 IMPRESSION: Normal x-ray examination of the chest. No interval change. Electronically Signed: Ruben Stone DO at 20:46 EST Reading Location ID and State: [address] [place] [address] Tel [phone], Service support , EKG Normal sinus rhythm: Attestation: I personally reviewed and interpreted this EKG as follows: Comments: EKG shows normal sinus rhythm, rate of 85 bpm, ND interval 168 ms, QRS duration 88 ms, no acute ST elevation, no acute infarct noted. Treatment and Re-Evaluation Narrative: All radiologic examinations were read, reviewed by the emergency department attending. From these reads, a plan of care will be put in place. Patient appears generally well, patient is slightly anxious. Patient presents to the emergency department with some chest discomfort that has been nonstop for the last 12 hours.Patient did receive cardiac work-up, patient's laboratory values were drawn as well as compared to 07/14/2022 as well as 05/23/2022. Patient's CBC was unremarkable, patient's chemistry shows slight hyponatremia the potassium of 3.4, patient's glucose is 123, patient's troponin was less than 3 which is negative. Patient's thyroid was within normal limits. At this time, there is no evidence to suspect any ACS, PA, ectopy. Patient's EKG was grossly unremarkable. Patient's two-view chest x-ray was unremarkable. At this time, patient will be diagnosed with anxiety, chest pain, uncertain etiology. Differentials included chest pain, pneumonia, muscle strain. Patient will follow-up closely with her PCP. On reassessment, she was feeling better. She states that she feels more relaxed, and will follow-up outpatient. She does see cardiology. She was given return precautions. She is stable for discharge. <Dr. Drake Guzman, DO - Last Filed: 07/17/22 22:29> MDM MDM Narrative Medical decision making narrative: Interventions / MDM: Differential diagnosis: Acute coronary syndrome, anxiety. Diagnosis considered but do not suspect: Pneumothorax however normal lung sounds and chest x-ray. PE however no dyspnea or hypoxia My EKG interpretation: normal sinus rhythm, rate of 85 bpm, ND interval 168 ms, QRS duration 88 ms, no acute ST elevation, no acute infarct noted. Imaging independently reviewed and interpreted by myself: 2 view chest x-ray no acute process External documents reviewed: N/A Test considered but not ordered:N/A ED course: Attending note: Patient seen and evaluated with rail crew member. I perform my own [id number] evaluation. I agree with the plan of work-up. Intermittent chest pain 2 days persistent however for last 18 hours. Increase anxiety and stress at home with sick no other recent diagnosed with pathological fracture that is being worked up at this time. Occasional tobacco. No family history of MIs at young age. History of hypertension. Denies diabetes hyperlipidemia. Denies recent travel, surgery, immobilizations. No history of PE or DVT. Heart and lungs are normal on exam. Cardiac work-up negative troponin less than 3, ACS rule out per algorithm. Chest x-ray negative. She is treated with Ativan improving symptoms. She is reassured. She will follow-up as an outpatient further testing. Return for patient's. Questions were. Re-evaluation: stable Disposition discussed with patient/family/significant other: Patient Case discussed with consulting clinician: N/A Lab Data Attestation: I reviewed the patient's lab results. Labs: Laboratory Results - last 24 hr 07/17/22 07/17/22 19:00 19:00 WBC 4.1 L RBC 4.75 Hgb 13.1 Hct 41.0 MCV 86.3 MCH 27.6 MCHC 32.0 RDW Std Deviation 43.2 RDW Coeff of Mikel 13.9 Plt Count 160 MPV 11.2 Immature Gran % (Auto) 0.200 Neut % (Auto) 50.5 Lymph % (Auto) 36.8 [place] % (Auto) 8.6 Eos % (Auto) 3.2 Baso % (Auto) 0.7 Absolute Neuts (auto) 2.1 Absolute Lymphs (auto) 1.50 Nucleated RBC % 0 Sodium 140 Potassium 3.4 L Chloride 104 Carbon Dioxide 29.0 Anion Gap 7 BUN 7 Creatinine 0.75 Estim Creat Clear Calc 98.01 Est GFR (MDRD) Af Amer 113 Est GFR (MDRD) Non-Af 94 BUN/Creatinine Ratio 9.3 L Glucose 123 H Calcium 9.1 Total Bilirubin 0.40 AST 10 L ALT 24 Alkaline Phosphatase 60 Troponin I High Sens < 3 L Total Protein 6.8 Albumin 3.6 Globulin 3.2 Albumin/Globulin Ratio 1.1 Lipase 120 TSH 1.37 Radiography Diagnostic Testing: Clinical Impression(s) from Imaging Studies Chest X-Ray 07/17/22 20:00 IMPRESSION: Normal x-ray examination of the chest. No interval change. Electronically Signed: Ruben Stone DO at 20:46 EST Reading Location ID and State: [address] [place] [address] Tel [phone], Service support , Discharge Plan Triage Chief Complaint: Chest Pain ED Midlevel Provider: Royce Bangura ED Provider: Drake Guzman Dx/Rx/DC Orders Clinical Impression: Acute chest wall pain, Anxiety Instructions: Anxiety Disorders Tx, ED Chest Pain, Uncertain Cause Prescriptions: No Action amlodipine 5 mg tablet 5 mg PO DAILY Qty: 90 1RF hydroxyzine pamoate 50 mg capsule 50 mg PO TID PRN (Reason: anxiety) Qty: 20 0RF meclizine 25 mg tablet 25 mg PO BID PRN (Reason: dizziness) Qty: 30 1RF prochlorperazine maleate [Compazine] 10 mg tablet 10 mg PO BID PRN (Reason: Migraine Symptoms) Qty: 30 1RF levothyroxine 137 mcg tablet 137 mcg PO DAILY Qty: 90 1RF vitamin E mixed 400 unit capsule 800 unit PO .qd ursodiol 300 mg capsule 300 mg PO BID Qty: 180 1RF ketoprofen 75 mg capsule 75 mg PO Q6H PRN (Reason: Migraine Symptoms) Qty: 100 0RF Rx Instructions: 1 cap PO at on set of headache max of 3 in 24 hours, max 20 per month cholecalciferol (vitamin D3) 1,250 mcg (50,000 unit) capsule 1,250 mcg PO QWEEK Qty: 14 1RF albuterol sulfate 2.5 mg /3 mL (0.083 %) solution for nebulization 2.5 mg inhalation Q6H PRN (Reason: shortness of breath or wheezing) Qty: 90 1RF Primary Care Provider: Jose Alejandro London Referrals: Jose Alejandro London MD [Primary Care Provider] - Activity Restrictions/Additional Instructions: Please follow-up outpatient. Disposition Disposition: Home, Self Care Discharge Date/Time: 07/17/22 20:32
[2022-07-17 19:13] LABS: Absolute Neutrophil Count 2.1 X10^3/uL (2.0-7.7); Basophil# 0.03 X10^3/uL; Basophil% 0.7 % (0-1); Eosinophil# 0.13 X10^3/uL; Eosinophils% 3.2 % (0-5); Hemoglobin 13.1 g/dL (12.0-15.0); Lymphocyte % 36.8 % (19-41); Mean Corpuscular Hgb 27.6 pg (27.0-32.0); Mean Corpuscular Volume 86.3 fL (81-99); Mean Platelet Vol. 11.2 fl (6.2-12.0); Monocyte# 0.35 X10^3/uL; Monocyte% 8.6 % (0-10); NRBC Flagged by Analyzer 0 % (0-5); Neutrophil # 2.06 X10^3/uL (2.7-7.7); Neutrophil % 50.5 % (47-70); Platelet Count 160 K/mm3 (150-450); RBC Distribution Width CV 13.9 % (11.6-14.6); RBC Distribution Width SD 43.2 fl (35.1-43.9); Red Blood Count 4.75 M/mm3 (4.2-5.4); White Blood Count 4.1 K/mm3 (4.4-11.0)
[2022-07-17 19:33] LABS: ALB/GLOB Ratio 1.1 RATIO (0.9-2.4); AST(SGOT) 10 U/L (15-37); Alanine Aminotransfer ALT/SGPT 24 U/L (13-56); Albumin, Serum 3.6 g/dL (3.2-5.0); Alkaline Phosphatase 60 U/L (45-117); Anion Gap 7 (5-15); BUN 7 mg/dL (7-18); BUN/Creat Ratio 9.3 RATIO (10-20); Calcium,Total 9.1 mg/dL (8.5-10.1); Chloride 104 mmol/L (98-107); Creatinine, Serum 0.75 mg/dL (0.55-1.02); EST Glomerular Filtration Rate 94 mL/min (>60); Est Glom Filt Rate - Afr Amer 113 mL/min (>60); Estimated Creatinine Clearance 98.01 ml/min; Globulin 3.2 g/dL (2.2-4.2); Glucose 123 mg/dL (74-106); Lipase 120 U/L (73-393); Potassium 3.4 mmol/L (3.5-5.1); Protein, Total 6.8 g/dL (6.4-8.2); Sodium Level 140 mmol/L (136-145); Thyroid Stim Hormone (TSH) 1.37 uIU/mL (0.358-3.74); Troponin-I HS < 3 pg/mL (3.0-54.0)
--- NOTE | 2022-07-17 20:00 | RAD_ITS ---
STUDY: X-RAY CHEST REASON FOR EXAM: Female, 37 years old. Cough. Central chest pain radiating into left shoulder. No known injury. TECHNIQUE: PA and lateral views of the chest. COMPARISON: April 12, 2022. FINDINGS: The lungs are clear and expanded. There is no demonstrated pleural abnormality. Normal size heart. Normal mediastinum and tho. Normal visualized pulmonary arteries. Normal visualized aortic arch and descending thoracic aorta. Normal visualized thoracic spine. Normal visualized ribs, clavicles, and shoulders. There is no demonstrated abnormality of the visualized soft tissue structures of the upper abdomen. RAD/Chest PA and Lateral IMPRESSION: Normal x-ray examination of the chest. No interval change. Electronically Signed: Ruben Stone DO at 20:46 EST ,
[2022-07-17] MEDS: Potassium Chloride Oral Tablet 20 MEQ 40 MEQ PO (20:28)
[2022-07-17 20:31] VITALS: BP 121/81; PULSE 83; RESP 24; O2SAT 100; O2SAT 121
== END 2022-07-17 20:32 | disposition home or self-care (01) ==
PROVIDERS: Nurse Practitioner; Emergency Provider Emergency Medicine; PCP Internal Medicine; Visit Provider Emergency Medicine
DX: R07.89 Other chest pain (principal); F41.9 Anxiety disorder, unspecified; Z63.79 Other stressful life events affecting family and household; F17.210 Nicotine dependence, cigarettes, uncomplicated; I10 Essential (primary) hypertension; E66.9 Obesity, unspecified
CPT/HCPCS: 71046; 80053; 83690; 84443; 84484; 85025; 93005; 99284; A4216

== ENCOUNTER → 2022-07-25 | Outpatient (CLI) | payer MEDICAID, SELFPAY ==
--- NOTE | 2022-07-25 09:57 | US_ITS ---
STUDY: ABDOMINAL ULTRASOUND - ELASTOGRAPHY REASON FOR VISIT: Female, 37 years old. NAFLD TECHNIQUE: Liver stiffness measurements were obtained on a [employer] RS 85 ultrasound machine using a CA 1-7 probe following the SRU guidelines. 3 measurements were obtained using a 2-D-SWE method. The IQR/M was 24 % suggesting a quality data set. TECHNICAL QUALITY: Adequate. COMPARISON: Comparison is made with prior study dated January 11, 2022. FINDINGS: Liver: Fatty infiltration of the liver. Median liver stiffness measured 6 kPa. US/Elastography Parenchyma/Organ IMPRESSION: Liver stiffness measures 6 kPa compatible with F2-F3 (Mild to moderate liver fibrosis) Metavir score. Electronically Signed: Christiano Eduardo MD at 13:52 EST ,
--- NOTE | 2022-07-25 09:57 | US_ITS ---
STUDY: ABDOMINAL ULTRASOUND - RIGHT UPPER QUADRANT REASON FOR VISIT: Female, 37 years old RUQ pain, NAFLD, elastography -- RUQ TECHNIQUE: Ultrasound evaluation of the right upper quadrant was performed with real-time and static gonzalez-scale imaging. TECHNICAL QUALITY: Adequate. COMPARISON: Comparison is made with prior study dated January 11, 2022. FINDINGS: Liver: The liver measures 15.8 cm. There is increased echogenicity consistent with fatty infiltration. The bile ducts are within normal limits. There is hepatic color flow. The direction of portal flow is hepatopetal. There is no demonstrated mass lesion. Gallbladder: Normal distended gallbladder. The gallbladder wall measures 2 mm. There is a negative sonographic Johnston''s sign. There is no pericholecystic fluid. There are no gallstones. Common Bile Duct (C.B.D.): The common bile duct measures 3 mm. Pancreas: Normal size of the head, body and tail of the pancreas. There is normal echogenicity of the pancreas. There is no demonstrated pancreatic mass or cyst. Right Kidney: Normal size of the right kidney. The right kidney measures 12.9 cm x 5.9 cm x 5.5 cm. Normal renal cortex. The right cortex measures 2 cm. There is no demonstrated renal mass or cyst. There is no right hydronephrosis. US/Abdomen Limited IMPRESSION: Fatty infiltration of the liver. Electronically Signed: Christiano Eduardo MD at 13:51 EST ,
== END | disposition home or self-care (01) ==
LOC: US 09:56
PROVIDERS: PCP Internal Medicine; Visit Provider Nurse Practitioner Adult Health
DX: R10.11 Right upper quadrant pain (principal); K76.0 Fatty (change of) liver, not elsewhere classified
CPT/HCPCS: 76705; 76981

== ENCOUNTER 2022-08-17 21:12 | Emergency (ER) | payer MEDICAID, SELFPAY ==
[2022-08-17 21:13] VITALS: PULSE 106; RESP 18; TEMP 35.9; O2SAT 100; BMI 36.7
[2022-08-17 21:24] VITALS: BP 120/89; BP 92/81; PULSE 88; RESP 16; O2SAT 100
--- NOTE | 2022-08-17 21:52 | CT_ITS ---
EXAM: CTA Head and Neck W/ Contrast Injection (and W/O Contrast Images if performed) HISTORY: paresthesias TECHNIQUE: CTA Head and Neck W/ Contrast Injection (and W/O Contrast Images if performed) Postcontrast axial images were obtained of the brain and neck. NASCET criteria using the distal ICAs for comparison were used for evaluation of stenoses. 3D reconstructions were reviewed. A radiation dose optimization technique was used for this scan. COMPARISON: CT brain 11/27/2021. LIMITATIONS: None. BRAIN: Normal gonzalez/white matter differentiation. VENTRICLES: No hydrocephalus. EXTRA-AXIAL SPACES: No hemorrhages, fluid collections, or masses. CALVARIUM/SKULL BASE: Normal. FACE/SINUSES: Visualized portions normal. SOFT TISSUES: Normal. OTHER: None. CAROTID ARTERIES: Normal. ANTERIOR CEREBRAL ARTERIES: Normal. MIDDLE CEREBRAL ARTERIES: Normal. POSTERIOR CEREBRAL ARTERIES: Normal. BASILAR ARTERY: Normal. VERTEBRAL ARTERIES: Normal. VENOUS STRUCTURES: Normal. OTHER: None. AORTIC ARCH: Normal. CAROTID ARTERIES: Normal. VERTEBRAL ARTERIES: Normal. OTHER ARTERIES: Normal. VENOUS STRUCTURES: Normal. BONES/SOFT TISSUES: Nonspecific reversal of the normal cervical lordosis. No acute osseous abnormality.. OTHER: None. CT/CTA Head AND Neck W/ Contrast IMPRESSION: No intracranial hemorrhage or acute territorial infarction. No flow-limiting stenosis, aneurysm or dissection in the head and neck. Electronically Signed: Paul Lees MD at 23:51 EDT ,
--- NOTE | 2022-08-17 21:53 | EKG12_ITS ---
Test Reason : Blood Pressure : / mmHG Vent. Rate : 074 BPM Atrial Rate : 074 BPM P-R Int : 166 ms QRS Dur : 086 ms QT Int : 370 ms P-R-T Axes : 027 058 046 degrees QTc Int : 410 ms Normal sinus rhythm Normal ECG Confirmed by LARRY HARTMAN, RAYNA ([id number]), medical editor DIANE SILVER ([id number]) on 08/22/2022 10:41:58 AM Referred By: Confirmed By:VERENICE JUAREZ MD
[2022-08-17] MEDS: 0.9% Normal Saline 1,000 ML 1000 ML IV (22:08)
[2022-08-17 22:10] LABS: Absolute Lymphocyte Count 1.31 X10^3/uL (0.83-4.51); Absolute Neutrophil Count 3.2 X10^3/uL (2.0-7.7); Basophil# 0.02 X10^3/uL; Basophil% 0.4 % (0-1); Eosinophil# 0.21 X10^3/uL; Hematocrit 42.7 % (37-47); Hemoglobin 13.8 g/dL (12.0-15.0); Lymphocyte # 1.31 X10^3/ul (0.83-4.51); Lymphocyte % 25.2 % (19-41); Mean Corp Hgb Conc 32.3 g/dL (32-36); Mean Corpuscular Hgb 27.6 pg (27.0-32.0); Mean Corpuscular Volume 85.4 fL (81-99); Mean Platelet Vol. 10.8 fl (6.2-12.0); Monocyte# 0.41 X10^3/uL; Monocyte% 7.9 % (0-10); NRBC Flagged by Analyzer 0 % (0-5); Neutrophil # 3.22 X10^3/uL (2.7-7.7); Neutrophil % 62.1 % (47-70); Platelet Count 175 K/mm3 (150-450); RBC Distribution Width CV 12.8 % (11.6-14.6); RBC Distribution Width SD 39.5 fl (35.1-43.9); White Blood Count 5.2 K/mm3 (4.4-11.0)
[2022-08-17 22:25] LABS: Internal QC Validated? YES +Cl - CLEAR BKGD; Pregnancy, Serum, hCG Quali. NEGATIVE Negative
[2022-08-17 22:30] LABS: Anion Gap 5 (5-15); BUN 9 mg/dL (7-18); BUN/Creat Ratio 13.4 RATIO (10-20); Calcium,Total 8.7 mg/dL (8.5-10.1); Chloride 106 mmol/L (98-107); Creatinine, Serum 0.67 mg/dL (0.55-1.02); EST Glomerular Filtration Rate 106 mL/min (>60); Est Glom Filt Rate - Afr Amer 128 mL/min (>60); Estimated Creatinine Clearance 109.71 ml/min; Glucose 128 mg/dL (74-106); Potassium 3.9 mmol/L (3.5-5.1); Sodium Level 138 mmol/L (136-145); Troponin-I HS 3 pg/mL (3.0-54.0)
--- NOTE | 2022-08-17 22:35 | EDS_ITS ---
HPI History of Present Illness Chief Complaint: General Illness Informant: patient Narrative Narrative: Patient presents with multiple complaints. She complains of pain around the left shoulder blade that causes pain and tingling in her left arm. She is also developed some left-sided pain that goes down her left leg with similar paresthesias. She states this has been ongoing for at least several months if not longer. Patient complains of chest pain which she describes as a heavy pressure in the substernal area with occasional sharp pain under the left breast. This has been ongoing for at least 2 weeks. Patient presents with a pressure-like sensation and occasional tingling in the left side of her face that has been ongoing for the past couple of hours. [facility] Medical History Abdominal pain Acute bronchitis, unspecified Acute sinusitis, unspecified ADHD (attention deficit hyperactivity disorder), combined type Arthritis Back pain Back pain Bronchitis Cancer Cardiology follow-up encounter Cervical lymphadenopathy Cervical radiculopathy Chronic back pain Chronic low back pain Chronic pain Chronic RUQ pain Depression Easy bruising Ectopic cardiac beats Fatty liver Fibromyalgia NICOLÁS (generalized anxiety disorder) Almaz's thyroiditis Heartburn History of acne History of echocardiogram History of gestational diabetes History of pain when walking History of stress test Hypertension Hypocalcemia Injury of head and neck Left-sided low back pain with left-sided sciatica Localized swelling, mass and lump, neck Melanoma Migraine without aura and with status migrainosus, not intractable Morbid obesity MARCELINO (nonalcoholic steatohepatitis) Numbness and tingling of both upper extremities Numbness of both lower extremities Palpitations Post herpetic neuralgia Restless legs Right femoral fracture RUQ abdominal pain Syncope Thyroid disease Tinnitus Tobacco abuse Vertigo Home Medications vitamin E mixed 400 unit capsule 800 unit PO .qd supplement 04/12/22 [History Last Taken Unknown] amlodipine 5 mg tablet 5 mg PO DAILY bp #90 tabs 05/30/22 [Rx Last Taken Unknown] cholecalciferol (vitamin D3) 1,250 mcg (50,000 unit) capsule 1,250 mcg PO QWEEK #14 caps 05/30/22 [Rx Last Taken Unknown] hydroxyzine pamoate 50 mg capsule 50 mg PO TID PRN anxiety #20 caps 05/30/22 [Rx Last Taken Unknown] ketoprofen 75 mg capsule 75 mg PO Q6H PRN Migraine Symptoms #100 caps 05/30/22 [Rx Last Taken Unknown] meclizine 25 mg tablet 25 mg PO BID PRN dizziness #30 tabs 05/30/22 [Rx Last Taken Unknown] prochlorperazine maleate 10 mg tablet (Compazine) 10 mg PO BID PRN Migraine Symptoms #30 tabs 05/30/22 [Rx Last Taken Unknown] ursodiol 300 mg capsule 300 mg PO BID #180 caps 05/30/22 [Rx Last Taken Unknown] albuterol sulfate 2.5 mg/3 mL (0.083 %) solution for nebulization 2.5 mg (3 mL) inhalation Q6H PRN shortness of breath or wheezing #90 mL 06/27/22 [Rx Last Taken Unknown] levothyroxine 137 mcg tablet 137 mcg PO DAILY synthroid #90 tabs 08/17/22 [Rx Last Taken Unknown] Allergy/AdvReac Type Severity Reaction Status Date / Time promethazine [From Phenergan] Allergy Unknown Unknown Verified 08/08/22 11:34 latex Allergy Itching Verified 08/08/22 11:34 naproxen Allergy Unknown Verified 08/08/22 11:34 Penicillins [PCN] Allergy Rash Verified 08/08/22 11:34 escitalopram [From Lexapro] AdvReac Intermediate Lightheaded Verified 08/08/22 11:34 sertraline [From Zoloft] AdvReac Intermediate Dizzy & Verified 08/08/22 11:34 Headache dicyclomine [From Bentyl] AdvReac Unknown Unknown Verified 08/08/22 11:34 hydrocodone [From Vicodin] AdvReac Other Verified 08/08/22 11:34 ketorolac [From Toradol] AdvReac Other Verified 08/08/22 11:34 Family History Grandmother Diabetes Other Family history of skin cancer High cholesterol Hypertension Surgical History History of surgery on arm History of thyroidectomy History of total vaginal hysterectomy (TVH) (~03/22/22) Status post incision and drainage (~04/15/22) Social History Smoking Status: Current every day smoker tobacco type: cigarettes Tobacco: How many years used: 13 Electronic Cigarette Use: not used second hand exposure: No alcohol intake: current alcohol intake frequency: holidays/special occasions only substance use type: does not use caffeine: Yes what type of physical activity do you participate in: none seatbelt use: always do you feel safe at home: Yes additional social history: emmy [facility] ED Constitutional Constitutional ED: Denies chills or fever(s) Eyes Eyes: Denies change in vision or discharge from eye(s) ENT ENT ED: Denies discharge from eye(s), rhinorrhea or sore throat Cardiovascular Cardiovascular: Reports chest pain; Denies palpitations Respiratory/Chest Respiratory/Chest: Denies cough or dyspnea Gastrointestinal Gastrointestinal: Denies abdominal pain, diarrhea, nausea or vomiting Genitourinary Genitourinary ED: Denies dysuria Musculoskeletal Musculoskeletal: Reports extremity pain; Denies back pain Integumentary Denies Abrasions or rash Neurologic Neurologic: Reports paresthesias; Denies headache(s) or weakness Psychiatric Psychiatric: Denies anxiety or depression Allergic/Immunologic Allergic/Immunologic ED: Denies lip swelling or urticaria EXAM Physical Exam Const Vital Signs: 08/17/22 21:13 08/17/22 21:24 08/17/22 21:24 Temperature 96.6 F L Temperature Source Temporal Pulse Rate 106 H 88 Respiratory Rate 18 16 Respiratory Effort Respiratory Pattern Blood Pressure 92/81 H 120/89 H Blood Pressure Mean 84 99 Pulse Ox 100 100 Oxygen Delivery Method Room Air Room Air 08/17/22 21:27 Temperature Temperature Source Pulse Rate Respiratory Rate Respiratory Effort Normal Non-Labored Respiratory Pattern Normal Blood Pressure Blood Pressure Mean Pulse Ox Oxygen Delivery Method Positive well nourished and well developed General Appearance ED: well developed HEENT Reports normocephalic and head/scalp atraumatic Eyes PERRL and EOMs intact bilaterally Neck supple Chest Wall inspection of chest normal and palpation of chest normal Resp normal respiratory effort and clear to auscultation bilaterally Cardio regular rate and regular rhythm GI normal to inspection, nondistended, normoactive bowel sounds Palpation: soft Extremity normal to inspection Neuro oriented x3 Sensorium / Orientation: alert Motor Exam: strength 5/5 throughout Psych mental status grossly normal Skin no rashes or lesions noted MDM MDM MDM Narrative Medical decision making narrative: Patient placed on diagnostic cardiac sonographer. EKG obtained to evaluate for cardiac arrhythmia/ischemia. Chest x-ray obtained to evaluate for acute lung pathology, cardiac size, or mediastinal abnormality. Labwork obtained to evaluate for leukocytosis, anemia, and electrolyte derangement. CTA of the head and neck obtained given her paresthesias. Lab Data Attestation: I reviewed the patient's lab results. Labs: Laboratory Results - last 24 hr 08/17/22 08/17/22 08/17/22 22:00 22:00 22:00 WBC 5.2 RBC 5.00 Hgb 13.8 Hct 42.7 MCV 85.4 MCH 27.6 MCHC 32.3 RDW Std Deviation 39.5 RDW Coeff of Mikel 12.8 Plt Count 175 MPV 10.8 Immature Gran % (Auto) 0.400 Neut % (Auto) 62.1 Lymph % (Auto) 25.2 [place] % (Auto) 7.9 Eos % (Auto) 4.0 Baso % (Auto) 0.4 Absolute Neuts (auto) 3.2 Absolute Lymphs (auto) 1.31 Nucleated RBC % 0 Sodium 138 Potassium 3.9 Chloride 106 Carbon Dioxide 27.0 Anion Gap 5 BUN 9 Creatinine 0.67 Estim Creat Clear Calc 109.71 Est GFR (MDRD) Af Amer 128 Est GFR (MDRD) Non-Af 106 BUN/Creatinine Ratio 13.4 Glucose 128 H Calcium 8.7 Troponin I High Sens 3 Serum , Qual NEGATIVE Radiography Chest X-Ray - ED: 1 View, Read by ED Physician and - (Scarring versus atelectasis at the right base. No acute findings.) Diagnostic Testing: Clinical Impression(s) from Imaging Studies Head/Neck CTA 08/17/22 21:52 IMPRESSION: No intracranial hemorrhage or acute territorial infarction. No flow-limiting stenosis, aneurysm or dissection in the head and neck. Electronically Signed: Paul Lees MD at 23:51 EDT , Chest X-Ray 08/17/22 22:55 IMPRESSION: 1. Tenting of the right hemidiaphragm, similar compared to the prior, differential includes partial atelectasis, infection or pleural/parenchymal scarring. 2. Blunting of the left costophrenic angle, may represent pleural thickening or small left pleural effusion. Electronically Signed: Paul Lees MD at 23:37 EDT , EKG Initial EKG: Attestation: I personally reviewed and interpreted this EKG as follows: Interpretation: Sinus Rhythm (Sinus at 74 with no acute ischemia.) Treatment and Re-Evaluation :: CBC and chemistry studies are unremarkable. test is negative. Troponin is normal at 3. Portable chest x-ray per my interpretation reveals scarring or atelectasis at the right base. No focal infiltrate or other acute abnormality. EKG reveals no ischemia. CTA of the head and neck read by radiology with no acute abnormalities. I did asked the patient if she had been evaluated for MS given that she tends to have pain and paresthesias on one side of her body. She does have some muscular tenderness in the upper left thoracic paraspinals that may explain some of the pain wrapping to her shoulder and chest, however she is now developing lower extremity symptoms as well. I did ask her to follow with her primary care physician to discuss whether further testing to include MRI would be needed. Discharge Plan Triage Chief Complaint: General Illness ED Provider: Dimple Luis Dx/Rx/DC Orders Clinical Impression: Atypical chest pain, Paresthesias Instructions: ED Chest Pain, Noncardiac, ED Paraesthesias Prescriptions: No Action amlodipine 5 mg tablet 5 mg PO DAILY Qty: 90 1RF hydroxyzine pamoate 50 mg capsule 50 mg PO TID PRN (Reason: anxiety) Qty: 20 0RF meclizine 25 mg tablet 25 mg PO BID PRN (Reason: dizziness) Qty: 30 1RF prochlorperazine maleate [Compazine] 10 mg tablet 10 mg PO BID PRN (Reason: Migraine Symptoms) Qty: 30 1RF vitamin E mixed 400 unit capsule 800 unit PO .qd ursodiol 300 mg capsule 300 mg PO BID Qty: 180 1RF ketoprofen 75 mg capsule 75 mg PO Q6H PRN (Reason: Migraine Symptoms) Qty: 100 0RF Rx Instructions: 1 cap PO at on set of headache max of 3 in 24 hours, max 20 per month cholecalciferol (vitamin D3) 1,250 mcg (50,000 unit) capsule 1,250 mcg PO QWEEK Qty: 14 1RF albuterol sulfate 2.5 mg /3 mL (0.083 %) solution for nebulization 2.5 mg inhalation Q6H PRN (Reason: shortness of breath or wheezing) Qty: 90 1RF levothyroxine 137 mcg tablet 137 mcg PO DAILY Qty: 90 1RF Primary Care Provider: Jose Alejandro London Referrals: Jose Alejandro London MD [Primary Care Provider] - 1 Week Disposition Disposition: Home, Self Care
--- NOTE | 2022-08-17 22:55 | RAD_ITS ---
INDICATION: chest pain EXAMINATION/TECHNIQUE: X-RAY - XR Chest 1 View COMPARISON: 07/17/2022 FINDINGS: LINES/DEVICES: None. LUNGS: Tenting at the lateral right hemidiaphragm, similar compared to the prior. Blunting of the left costophrenic angle. No consolidation, edema. No pneumothorax. MEDIASTINUM AND CARDIOVASCULAR STRUCTURES: Cardiac silhouette not enlarged. Central airways and mediastinal contour are unremarkable. BONES AND SOFT TISSUES: Unremarkable. RAD/Chest 1 View (Portable) IMPRESSION: 1. Tenting of the right hemidiaphragm, similar compared to the prior, differential includes partial atelectasis, infection or pleural/parenchymal scarring. 2. Blunting of the left costophrenic angle, may represent pleural thickening or small left pleural effusion. Electronically Signed: Paul Lees MD at 23:37 EDT ,
[2022-08-18 00:17] VITALS: BP 130/80; PULSE 81; RESP 16; O2SAT 98
== END 2022-08-18 00:18 | disposition home or self-care (01) ==
PROVIDERS: Emergency Provider Emergency Medicine; PCP Internal Medicine; Visit Provider Emergency Medicine
DX: R07.89 Other chest pain (principal); E66.01 Morbid (severe) obesity due to excess calories; M79.605 Pain in left leg; M54.9 Dorsalgia, unspecified; G89.29 Other chronic pain; M25.512 Pain in left shoulder; I10 Essential (primary) hypertension; R07.2 Precordial pain; R20.2 Paresthesia of skin; Z79.899 Other long term (current) drug therapy; F17.210 Nicotine dependence, cigarettes, uncomplicated
CPT/HCPCS: 70496; 70498; 71045; 80048; 84484; 84703; 85025; 93005; 96360; 99283; J7030; Q9967; A4216

== ENCOUNTER 2022-08-26 14:59 | Emergency (ER) | payer MEDICAID, SELFPAY ==
[2022-08-26 15:00] VITALS: BP 131/93; PULSE 97; RESP 18; TEMP 36.5; O2SAT 100; BMI 36.4
--- NOTE | 2022-08-26 15:18 | VDLE_ITS ---
Reason For Study: Pain RIGHT GSV is normal. CFV is compressible, spontaneous, phasic, competent and demonstrates normal augmentation. FV is compressible, spontaneous, phasic, competent and demonstrates normal augmentation. POP V is compressible, spontaneous, phasic, competent and demonstrates normal augmentation. T/P Trunk is compressible. PTV is compressible. RT PerV is compressible. Procedure This is a venous duplex using B-mode, color flow and spectral Doppler. Exam performed portable in ED. A preliminary report was called and/or faxed to Dr. Luis. VL/Venous Duplex US, Unilateral Interpretation Summary Deep veins of the right lower extremity are patent and compressible segmentally . There is no evidence of right lower extremity deep vein thrombosis. The right great sapheno us vein appears patent and compressible segmentally. Ordering Physician: Dimple Luis Referring Physician: Jose Alejandro London Performed By: Angie Solomon RVT
--- NOTE | 2022-08-26 15:20 | EDS_ITS ---
HPI History of Present Illness Chief Complaint: Lower Extremity Injury Detail of Chief Complaint: Right leg pain Informant: patient Onset/Context/Timing Onset: Weeks (4 weeks) Current Severity: Moderate Maximum Severity: Moderate Narrative Narrative: Patient presents with 4-week history of increasing right leg pain. She reports a history of varicose veins. She had a femur fracture when she was 18 years old and had a britt placed. Since that time she had problems with vascular flow. She reports having a venous ultrasound at [facility] 3 weeks ago that showed no evidence of DVT. Pain is continued to progress. She called Dr. Enrique's office this morning and has an appointment to be seen on the . [facility] Medical History Abdominal pain ADHD (attention deficit hyperactivity disorder), combined type Arthritis Back pain Bronchitis Cancer Cardiology follow-up encounter Cervical lymphadenopathy Cervical radiculopathy Chronic back pain Chronic pain Chronic RUQ pain Depression Easy bruising Ectopic cardiac beats Fatty liver Fibromyalgia NICOLÁS (generalized anxiety disorder) Almaz's thyroiditis Heartburn History of acne History of echocardiogram History of gestational diabetes History of pain when walking History of stress test Hypertension Hypocalcemia Injury of head and neck Left-sided low back pain with left-sided sciatica Localized swelling, mass and lump, neck Melanoma Migraine without aura and with status migrainosus, not intractable Morbid obesity MARCELINO (nonalcoholic steatohepatitis) Numbness and tingling of both upper extremities Numbness of both lower extremities Palpitations Post herpetic neuralgia Restless legs Right femoral fracture RUQ abdominal pain Syncope Thyroid disease Tinnitus Tobacco abuse Vertigo Home Medications vitamin E mixed 400 unit capsule 800 unit PO .qd supplement 04/12/22 [History Last Taken Unknown] amlodipine 5 mg tablet 5 mg PO DAILY bp #90 tabs 05/30/22 [Rx Last Taken Unknown] cholecalciferol (vitamin D3) 1,250 mcg (50,000 unit) capsule 1,250 mcg PO QWEEK #14 caps 05/30/22 [Rx Last Taken Unknown] hydroxyzine pamoate 50 mg capsule 50 mg PO TID PRN anxiety #20 caps 05/30/22 [Rx Last Taken Unknown] ketoprofen 75 mg capsule 75 mg PO Q6H PRN Migraine Symptoms #100 caps 05/30/22 [Rx Last Taken Unknown] meclizine 25 mg tablet 25 mg PO BID PRN dizziness #30 tabs 05/30/22 [Rx Last Taken Unknown] prochlorperazine maleate 10 mg tablet (Compazine) 10 mg PO BID PRN Migraine Symptoms #30 tabs 05/30/22 [Rx Last Taken Unknown] ursodiol 300 mg capsule 300 mg PO BID #180 caps 05/30/22 [Rx Last Taken Unknown] albuterol sulfate 2.5 mg/3 mL (0.083 %) solution for nebulization 2.5 mg (3 mL) inhalation Q6H PRN shortness of breath or wheezing #90 mL 06/27/22 [Rx Last Taken Unknown] levothyroxine 137 mcg tablet 137 mcg PO DAILY synthroid #90 tabs 08/17/22 [Rx Last Taken Unknown] oxycodone-acetaminophen 5 mg-325 mg tablet (Percocet) 1 tab PO Q8H PRN pain 3 days #10 tabs 08/26/22 [Rx Last Taken Unknown] Allergy/AdvReac Type Severity Reaction Status Date / Time promethazine [From Phenergan] Allergy Unknown Unknown Verified 08/26/22 15:22 latex Allergy Itching Verified 08/26/22 15:22 naproxen Allergy Unknown Verified 08/26/22 15:22 Penicillins [PCN] Allergy Rash Verified 08/26/22 15:22 escitalopram [From Lexapro] AdvReac Intermediate Lightheaded Verified 08/26/22 15:22 sertraline [From Zoloft] AdvReac Intermediate Dizzy & Verified 08/26/22 15:22 Headache dicyclomine [From Bentyl] AdvReac Unknown Unknown Verified 08/26/22 15:22 hydrocodone [From Vicodin] AdvReac Other Verified 08/26/22 15:22 ketorolac [From Toradol] AdvReac Other Verified 08/26/22 15:22 Family History Grandmother Diabetes Other Family history of skin cancer High cholesterol Hypertension Surgical History History of surgery on arm History of thyroidectomy History of total vaginal hysterectomy (TVH) (~03/22/22) Status post incision and drainage (~04/15/22) Social History Smoking Status: Current every day smoker tobacco type: cigarettes Tobacco: How many years used: 13 Electronic Cigarette Use: not used second hand exposure: No alcohol intake: current alcohol intake frequency: holidays/special occasions only substance use type: does not use caffeine: Yes what type of physical activity do you participate in: none seatbelt use: always do you feel safe at home: Yes additional social history: emmy [facility] ED Constitutional Constitutional ED: Denies chills or fever(s) Eyes Eyes: Denies change in vision or discharge from eye(s) ENT ENT ED: Denies discharge from eye(s), rhinorrhea or sore throat Cardiovascular Cardiovascular: Denies chest pain or palpitations Respiratory/Chest Respiratory/Chest: Denies cough or dyspnea Gastrointestinal Gastrointestinal: Denies abdominal pain, nausea or vomiting Genitourinary Genitourinary ED: Denies dysuria Musculoskeletal Musculoskeletal: Reports extremity pain; Denies back pain Integumentary Denies Abrasions or rash Neurologic Neurologic: Denies headache(s) or weakness Psychiatric Psychiatric: Denies anxiety or depression Allergic/Immunologic Allergic/Immunologic ED: Denies lip swelling or urticaria EXAM Physical Exam Const Vital Signs: 08/26/22 15:00 Temperature 97.7 F L Temperature Source Temporal Pulse Rate 97 Respiratory Rate 18 Blood Pressure 131/93 H Blood Pressure Mean 105 Pulse Ox 100 Oxygen Delivery Method Room Air Positive well nourished and well developed General Appearance ED: well developed HEENT Reports normocephalic and head/scalp atraumatic Eyes PERRL and EOMs intact bilaterally Neck supple Chest Wall inspection of chest normal and palpation of chest normal Resp normal respiratory effort and clear to auscultation bilaterally Cardio regular rate and regular rhythm GI normal to inspection, nondistended, normoactive bowel sounds Palpation: soft Extremity Extremity Narrative: Minimal edema noted to the right lower extremity. Mild tenderness noted throughout. Strong distal pulses. Neuro oriented x3 and no sensory deficits noted Sensorium / Orientation: alert Motor Exam: strength 5/5 throughout Psych mental status grossly normal Skin no rashes or lesions noted MDM MDM MDM Narrative Medical decision making narrative: Venous ultrasound of the right lower extremity is obtained to rule out DVT. BMP obtained to evaluate electrolyte status. Lab Data Labs: Laboratory Results - last 24 hr 08/26/22 15:56 Sodium 139 Potassium 3.7 Chloride 106 Carbon Dioxide 27.0 Anion Gap 6 BUN 7 Creatinine 0.76 Estim Creat Clear Calc 96.72 Est GFR (MDRD) Af Amer 111 Est GFR (MDRD) Non-Af 92 BUN/Creatinine Ratio 9.2 L Glucose 104 Calcium 8.6 Treatment and Re-Evaluation :: Venous ultrasound reveals no evidence of DVT. Tech stated there were some visualized varicose veins, but nothing significantly inflamed at this time. BMP reveals no acute abnormalities with normal potassium level. Test results are discussed with the patient. We discussed getting a compressive sleeve to wear on her right leg. I will write her a short course of pain medicine and she will follow-up Dr. Enrique on the as scheduled. Discharge Plan Triage Chief Complaint: Lower Extremity Injury ED Provider: Dimple Luis Dx/Rx/DC Orders Clinical Impression: Varicose veins of right lower extremity Instructions: ED Varicose Veins Prescriptions: New oxycodone-acetaminophen [Percocet] 5-325 mg tablet 1 tab PO Q8H PRN (Reason: pain) 3 Days Qty: 10 0RF No Action amlodipine 5 mg tablet 5 mg PO DAILY Qty: 90 1RF hydroxyzine pamoate 50 mg capsule 50 mg PO TID PRN (Reason: anxiety) Qty: 20 0RF meclizine 25 mg tablet 25 mg PO BID PRN (Reason: dizziness) Qty: 30 1RF prochlorperazine maleate [Compazine] 10 mg tablet 10 mg PO BID PRN (Reason: Migraine Symptoms) Qty: 30 1RF vitamin E mixed 400 unit capsule 800 unit PO .qd ursodiol 300 mg capsule 300 mg PO BID Qty: 180 1RF ketoprofen 75 mg capsule 75 mg PO Q6H PRN (Reason: Migraine Symptoms) Qty: 100 0RF Rx Instructions: 1 cap PO at on set of headache max of 3 in 24 hours, max 20 per month cholecalciferol (vitamin D3) 1,250 mcg (50,000 unit) capsule 1,250 mcg PO QWEEK Qty: 14 1RF albuterol sulfate 2.5 mg /3 mL (0.083 %) solution for nebulization 2.5 mg inhalation Q6H PRN (Reason: shortness of breath or wheezing) Qty: 90 1RF levothyroxine 137 mcg tablet 137 mcg PO DAILY Qty: 90 1RF Primary Care Provider: Jose Alejandro London Referrals: Jose Alejandro London MD [Primary Care Provider] - Greg Enrique MD [Med Staff - Active Staff] - Keep Edwin appointment Disposition Disposition: Home, Self Care
[2022-08-26 16:26] LABS: Anion Gap 6 (5-15); BUN 7 mg/dL (7-18); BUN/Creat Ratio 9.2 RATIO (10-20); Calcium,Total 8.6 mg/dL (8.5-10.1); Chloride 106 mmol/L (98-107); Creatinine, Serum 0.76 mg/dL (0.55-1.02); EST Glomerular Filtration Rate 92 mL/min (>60); Est Glom Filt Rate - Afr Amer 111 mL/min (>60); Estimated Creatinine Clearance 96.72 ml/min; Glucose 104 mg/dL (74-106); Potassium 3.7 mmol/L (3.5-5.1); Sodium Level 139 mmol/L (136-145)
[2022-08-26 16:47] VITALS: RESP 18
== END 2022-08-26 16:51 | disposition home or self-care (01) ==
PROVIDERS: Emergency Provider Emergency Medicine; PCP Internal Medicine; Visit Provider Emergency Medicine
DX: I83.91 Asymptomatic varicose veins of right lower extremity (principal); I10 Essential (primary) hypertension; F17.210 Nicotine dependence, cigarettes, uncomplicated
CPT/HCPCS: 80048; 93971; 99283; A4216

== ENCOUNTER → 2022-10-07 | Outpatient (CLI) | payer MEDICAID, SELFPAY ==
--- NOTE | 2022-10-07 12:59 | US_ITS ---
STUDY: ULTRASOUND OF THE FEMALE PELVIS - COMPLETE REASON FOR EXAM: Female, 37 years old. Pelvic pain right -- S/P HYSTERECTOMY 2018 -- LT OOPHORECTOMY 2018 LMP: The patient is status post hysterectomy. TECHNIQUE: Transvaginal TECHNICAL QUALITY: Adequate. COMPARISON: Comparison is made with prior study dated July 13, 2022. FINDINGS: The patient is status post hysterectomy. The right ovary is visualized. The right ovary measures 5 cm x 4 cm x 3.3 cm. There is a 2.4 cm x 2.6 cm x 2.6 cm right ovarian cyst. There is no visualized right adnexal mass or complex lesion. There is normal arterial and normal venous vascularity. The patient is status post left oophorectomy. There is no fluid in the cul-de-sac. The pre void volume of the bladder was 164 ml. US/Pelvic w/ Transvaginal IMPRESSION: Status post hysterectomy and left oophorectomy. There is a 2.47 x 2.6 cm x 2.6 cm right ovarian cyst. Electronically Signed: Christiano Eduardo MD at 14:43 EDT ,
== END | disposition home or self-care (01) ==
LOC: US 12:59
PROVIDERS: PCP Internal Medicine; Referring Provider Obstetrics & Gynecology; Visit Provider Obstetrics & Gynecology
DX: R10.2 Pelvic and perineal pain (principal)
CPT/HCPCS: 76830; 76856; 93976

== ENCOUNTER 2022-11-08 16:37 | Emergency (ER) | payer MEDICAID, SELFPAY ==
[2022-11-08 16:37] VITALS: BP 114/100; PULSE 100; RESP 18; TEMP 35.8; O2SAT 93; BMI 36.2
--- NOTE | 2022-11-08 17:02 | US_ITS ---
STUDY: ABDOMINAL ULTRASOUND - RIGHT UPPER QUADRANT REASON FOR VISIT: Female, 37 years old RUQ pain TECHNIQUE: Ultrasound evaluation of the right upper quadrant was performed with real-time and static gonzalez-scale imaging. TECHNICAL QUALITY: Adequate. COMPARISON: July 25, 2022. FINDINGS: Liver: The liver measures 17.3 cm. There is diffusely increased echogenicity of the liver. The bile ducts are within normal limits. There is hepatic color flow. The direction of portal flow is hepatopetal. There is no demonstrated mass lesion. Gallbladder: Contracted gallbladder. The gallbladder wall measures 3 mm. There is a negative sonographic Johnston''s sign. There is no pericholecystic fluid. There are no gallstones. Common Bile Duct (C.B.D.): The common bile duct measures 4 mm. Pancreas: Normal size of the head, body and tail of the pancreas. There is normal echogenicity of the pancreas. There is no demonstrated pancreatic mass or cyst. Right Kidney: Normal size of the right kidney. The right kidney measures 12.6 x 4.9 x 5.6 cm. Normal renal cortex. The right cortex measures 2.3 cm. Cortical cyst measuring 1.2 x 1.3 cm and parapelvic cyst measuring 9 mm. There is no right hydronephrosis. US/Abdomen Limited IMPRESSION: Enlarged nonspecific fatty infiltrated liver. Contracted thick-walled gallbladder without stones possibly physiologic. If concern for gallbladder disease HIDA scan with CCK stimulation recommended Electronically Signed: Nima Castro MD at 18:38 EDT ,
--- NOTE | 2022-11-08 17:02 | US_ITS ---
STUDY: ULTRASOUND TRANSVAGINAL CLINICAL: Female, 37 years old. right ovarian cyst TECHNIQUE: Transvaginal COMPARISON: October 07, 2022 FINDINGS: Uterus not visualized status post hysterectomy.. Normal right ovary, measuring 5.4 x 5.3 x 4.2 cm. Complex cyst measuring 4.2 x 3.9 x 3.2 centimeters Left ovary not visualized status post oophorectomy There is no free fluid in the pelvis. The right ovarian cyst has increased in size since prior exam. US/Transvaginal Non- IMPRESSION: Increasing size of complex right ovarian cyst of uncertain etiology. Status post [facility] Electronically Signed: Nima Castro MD at 18:40 EDT ,
--- NOTE | 2022-11-08 17:05 | EDS_ITS ---
HPI History of Present Illness Chief Complaint: Abd Pain Informant: patient Onset/Context/Timing Onset: Weeks Context: Gradual Onset Current Severity: Moderate Maximum Severity: Severe Narrative Narrative: Patient presents secondary to right-sided abdominal pain. She is a history of right ovarian cyst that did require surgery in March of last year. She states pain started up again about 5 weeks ago. She had an ultrasound performed at her [facility] office and revealed a cyst of about 2 cm in size. She states pain has been increasing since that time. She also has pain in the right upper quadrant with a history of fatty liver. She denies fever or chills. No urinary symptoms. She has intermittent nausea but no vomiting. She has not been able to relate the pain exacerbation to any particular foods or specific cause. [facility] Medical History Abdominal pain ADHD (attention deficit hyperactivity disorder), combined type Anxiety and depression Arthritis Back pain Bronchitis Cancer Cardiology follow-up encounter Cervical lymphadenopathy Cervical radiculopathy Chronic back pain Chronic pain Chronic RUQ pain Depression Easy bruising Ectopic cardiac beats Fatty liver Fibromyalgia NICOLÁS (generalized anxiety disorder) Almaz's thyroiditis Heartburn History of acne History of echocardiogram History of gestational diabetes History of pain when walking History of stress test Hypertension Hypocalcemia Injury of head and neck Left shoulder pain Left-sided low back pain with left-sided sciatica Localized swelling, mass and lump, neck Melanoma Migraine without aura and with status migrainosus, not intractable Morbid obesity MARCELINO (nonalcoholic steatohepatitis) Numbness and tingling of both upper extremities Numbness of both lower extremities Palpitations Post herpetic neuralgia Restless legs Right femoral fracture RUQ abdominal pain Syncope Thyroid disease Tinnitus Tobacco abuse Vertigo Home Medications vitamin E mixed 400 unit capsule 800 unit PO .qd supplement 04/12/22 [History Last Taken Unknown] amlodipine 5 mg tablet 5 mg PO DAILY bp #90 tabs 05/30/22 [Rx Last Taken Unknown] hydroxyzine pamoate 50 mg capsule 50 mg PO TID PRN anxiety #20 caps 05/30/22 [Rx Last Taken Unknown] ketoprofen 75 mg capsule 75 mg PO Q6H PRN Migraine Symptoms #100 caps 05/30/22 [Rx Last Taken Unknown] meclizine 25 mg tablet 25 mg PO BID PRN dizziness #30 tabs 05/30/22 [Rx Last Taken Unknown] albuterol sulfate 2.5 mg/3 mL (0.083 %) solution for nebulization 2.5 mg (3 mL) inhalation Q6H PRN shortness of breath or wheezing #90 mL 06/27/22 [Rx Last T aken Unknown] cholecalciferol (vitamin D3) 1,250 mcg (50,000 unit) capsule 1,250 mcg PO QWEEK #14 caps 09/02/22 [Rx Last Taken Unknown] levothyroxine 137 mcg tablet 137 mcg PO DAILY synthroid #90 tabs 09/02/22 [Rx Last Taken Unknown] prochlorperazine maleate 10 mg tablet (Compazine) 10 mg PO BID PRN Migraine Symptoms #30 tabs 09/02/22 [Rx Last Taken Unknown] ursodiol 300 mg capsule 300 mg PO BID #180 caps 09/02/22 [Rx Last Taken Unknown] venlafaxine 37.5 mg capsule,extended release 24 hr (Effexor XR) 37.5 mg PO DAILY #60 caps 09/02/22 [Rx Last Taken Unknown] ondansetron 4 mg disintegrating tablet 4 mg PO Q8H PRN PRN Nausea #10 tabs 11/08/22 [Rx Last Taken Unknown] oxycodone-acetaminophen 5 mg-325 mg tablet (Percocet) 1 tab PO Q8H PRN pain 3 days #10 tabs 11/08/22 [Rx Last Taken Unknown] Allergy/AdvReac Type Severity Reaction Status Date / Time promethazine [From Phenergan] Allergy Unknown Unknown Verified 10/24/22 13:29 latex Allergy Itching Verified 10/24/22 13:29 naproxen Allergy Unknown Verified 10/24/22 13:29 Penicillins [PCN] Allergy Rash Verified 10/24/22 13:29 escitalopram [From Lexapro] AdvReac Intermediate Lightheaded Verified 10/24/22 13:29 sertraline [From Zoloft] AdvReac Intermediate Dizzy & Verified 10/24/22 13:29 Headache dicyclomine [From Bentyl] AdvReac Unknown Unknown Verified 10/24/22 13:29 hydrocodone [From Vicodin] AdvReac Other Verified 10/24/22 13:29 ketorolac [From Toradol] AdvReac Other Verified 10/24/22 13:29 Family History Grandmother Diabetes Other Family history of skin cancer High cholesterol Hypertension Surgical History History of surgery on arm History of thyroidectomy History of total vaginal hysterectomy (TVH) (~03/22/22) Status post incision and drainage (~04/15/22) Social History Smoking Status: Current every day smoker tobacco type: cigarettes Tobacco: How many years used: 13 Electronic Cigarette Use: not used second hand exposure: No alcohol intake: current alcohol intake frequency: holidays/special occasions only substance use type: does not use caffeine: Yes what type of physical activity do you participate in: none seatbelt use: always do you feel safe at home: Yes additional social history: [facility] Constitutional Constitutional ED: Denies chills or fever(s) Eyes Eyes: Denies change in vision or discharge from eye(s) ENT ENT ED: Denies discharge from eye(s), rhinorrhea or sore throat Cardiovascular Cardiovascular: Denies chest pain or palpitations Respiratory/Chest Respiratory/Chest: Denies cough or dyspnea Gastrointestinal Gastrointestinal: Reports abdominal pain and nausea; Denies diarrhea or vomiting Genitourinary Genitourinary ED: Denies difficulty urinating or dysuria Musculoskeletal Musculoskeletal: Denies back pain or extremity pain Integumentary Denies Abrasions or rash Neurologic Neurologic: Denies headache(s) or weakness Psychiatric Psychiatric: Denies anxiety or depression Allergic/Immunologic Allergic/Immunologic ED: Denies lip swelling or urticaria EXAM Physical Exam Const Vital Signs: 11/08/22 16:37 Temperature 96.5 F L Temperature Source Temporal Pulse Rate 100 Respiratory Rate 18 Blood Pressure 114/100 H Blood Pressure Mean 104 Pulse Ox 93 Oxygen Delivery Method Room Air Positive well nourished and well developed General Appearance ED: well developed HEENT Reports moist mucous membranes Eyes PERRL and EOMs intact bilaterally Neck no lymphadenopathy Chest Wall inspection of chest normal and palpation of chest normal Resp normal respiratory effort and clear to auscultation bilaterally Cardio regular rate and regular rhythm GI GI Narrative: Mild tenderness outpatient of the right upper quadrant. No guarding or rebound. Mild to moderate tenderness in the right lower quadrant with no palpable masses. No guarding. Hypoactive but present bowel sounds are noted throughout. Extremity normal to inspection Neuro oriented x3 and no sensory deficits noted Motor Exam: strength 5/5 throughout Psych mental status grossly normal Skin no rashes or lesions noted MDM MDM MDM Narrative Medical decision making narrative: Patient given oxycodone and Zofran for pain and nausea. IV fluids given. Labwork obtained to evaluate for leukocytosis, anemia, and electrolyte derangement. Urinalysis obtained to evaluate for infection/hematuria. Fiber quadrant ultrasound obtained along with a pelvic ultrasound. Lab Data Attestation: I reviewed the patient's lab results. Labs: Laboratory Results - last 24 hr 11/08/22 11/08/22 11/08/22 16:55 16:55 16:55 WBC 5.7 RBC 5.01 Hgb 13.7 Hct 42.7 MCV 85.2 MCH 27.3 MCHC 32.1 RDW Std Deviation 39.6 RDW Coeff of Mikel 12.9 Plt Count 189 MPV 11.3 Immature Gran % (Auto) 0.200 Neut % (Auto) 56.0 Lymph % (Auto) 27.2 [place] % (Auto) 11.3 H Eos % (Auto) 4.6 Baso % (Auto) 0.7 Absolute Neuts (auto) 3.2 Absolute Lymphs (auto) 1.54 Nucleated RBC % 0 Sodium 137 Potassium 3.2 L Chloride 105 Carbon Dioxide 27.0 Anion Gap 5 BUN 11 Creatinine 0.75 Estim Creat Clear Calc 98.01 Est GFR (MDRD) Af Amer 112 Est GFR (MDRD) Non-Af 93 BUN/Creatinine Ratio 14.6 Glucose 84 Calcium 9.3 Total Bilirubin 0.20 Direct Bilirubin 0.07 AST 10 L ALT 20 Alkaline Phosphatase 72 Total Protein 7.6 Albumin 3.8 Globulin 3.8 Lipase 46 Urine Color Yellow Urine Clarity Clear Urine pH 6.5 Ur Specific [place] 1.015 Urine Protein Negative Urine Glucose (UA) Normal Urine Ketones Negative Urine Occult Blood Negative Urine Nitrite Negative Urine Bilirubin Negative Urine Urobilinogen Normal Ur Leukocyte Esterase Negative Urine RBC 0 SEEN Urine WBC 0 SEEN Ur Squamous Epith Cells 0-5 SEEN Urine Bacteria RARE Urine Mucus 0 SEEN Radiography Diagnostic Testing: Clinical Impression(s) from Imaging Studies Abdomen Ultrasound 11/08/22 17:02 IMPRESSION: Enlarged nonspecific fatty infiltrated liver. Contracted thick-walled gallbladder without stones possibly physiologic. If concern for gallbladder disease HIDA scan with CCK stimulation recommended Electronically Signed: Nima Castro MD at 18:38 EDT , Transvaginal US 11/08/22 17:02 IMPRESSION: Increasing size of complex right ovarian cyst of uncertain etiology. Status post [facility] Electronically Signed: Nima Castro MD at 18:40 EDT , Treatment and Re-Evaluation :: CBC was normal white count and differential. Hemoglobin is normal at 13.7. Chemistry studies significant only for slightly low potassium at 3.2. This is replaced orally. LFTs are unremarkable. Lipase is normal. Urinalysis reveals no evidence of infection. Right upper quadrant ultrasound reveals an enlarged nonspecific fatty liver. Contracted thick-walled gallbladder is noted which may be physiologic. Patient has broad area of pain in the right upper quadrant and exam is not consistent with acute cholecystitis. Transvaginal ultrasound does reveal right ovarian cyst measuring approximate 4 cm in diameter. Good blood flow was noted. Patient be given a prescription for Percocet. She was supposed to have an ultrasound performed tomorrow with her [employer]. She will call them in the morning and notify them that she had an ultrasound in the ER and await further instructions. Return instructions given. Discharge Plan Triage Chief Complaint: Abd Pain ED Provider: Dimple Luis Dx/Rx/DC Orders Clinical Impression: Abdominal pain, Ovarian cyst Instructions: ED Ovarian Cyst Prescriptions: New oxycodone-acetaminophen [Percocet] 5-325 mg tablet 1 tab PO Q8H PRN (Reason: pain) 3 Days Qty: 10 0RF ondansetron 4 mg tablet,disintegrating 4 mg PO Q8H PRN PRN (Reason: Nausea) Qty: 10 0RF No Action amlodipine 5 mg tablet 5 mg PO DAILY Qty: 90 1RF hydroxyzine pamoate 50 mg capsule 50 mg PO TID PRN (Reason: anxiety) Qty: 20 0RF meclizine 25 mg tablet 25 mg PO BID PRN (Reason: dizziness) Qty: 30 1RF levothyroxine 137 mcg tablet 137 mcg PO DAILY Qty: 90 1RF ursodiol 300 mg capsule 300 mg PO BID Qty: 180 1RF prochlorperazine maleate [Compazine] 10 mg tablet 10 mg PO BID PRN (Reason: Migraine Symptoms) Qty: 30 1RF cholecalciferol (vitamin D3) 1,250 mcg (50,000 unit) capsule 1,250 mcg PO QWEEK Qty: 14 1RF venlafaxine [Effexor XR] 37.5 mg capsule,extended release 24hr 37.5 mg PO DAILY Qty: 60 2RF Rx Instructions: Take daily x 2 weeks the increase to 75 mg vitamin E mixed 400 unit capsule 800 unit PO .qd ketoprofen 75 mg capsule 75 mg PO Q6H PRN (Reason: Migraine Symptoms) Qty: 100 0RF Rx Instructions: 1 cap PO at on set of headache max of 3 in 24 hours, max 20 per month albuterol sulfate 2.5 mg /3 mL (0.083 %) solution for nebulization 2.5 mg inhalation Q6H PRN (Reason: shortness of breath or wheezing) Qty: 90 1RF Primary Care Provider: Jose Alejandro London Referrals: Jose Alejandro London MD [Primary Care Provider] - Cassidy Moore MD [Med Staff - Active Staff] - As soon as possible Disposition Disposition: Home, Self Care
[2022-11-08 17:14] LABS: Mucous, Urine 0 SEEN /hpf (<or=2+); Red Blood Cells-Urine 0 SEEN /hpf (0-5); White Blood Cells 0 SEEN /hpf (0-5)
[2022-11-08] MEDS: 0.9% Normal Saline 1,000 ML 150 ML IV (17:15)
[2022-11-08 17:21] LABS: Color, Urine Yellow (Yellow); Glucose, Dipstick Normal (Normal); Ketone-Dipstick Negative (Negative); Leukocyte Esterase-Dipstick Negative /ul (Negative); Nitrite-Dipstick Negative (Negative); Occult Blood-Urine Negative /ul (Negative); Protein-Dipstick Negative (Negative); Specific Gravity, Urine 1.015 (1.002-1.030); Urine Bilirubin Dipstick Negative (Negative); Urine Clarity Clear (Clear); Urine Urobilinogen Normal (Normal); Urine pH 6.5 (5.0 - 8.0)
[2022-11-08 17:24] LABS: Absolute Lymphocyte Count 1.54 X10^3/uL (0.83-4.51); Absolute Neutrophil Count 3.2 X10^3/uL (2.0-7.7); Basophil# 0.04 X10^3/uL; Basophil% 0.7 % (0-1); Eosinophil# 0.26 X10^3/uL; Eosinophils% 4.6 % (0-5); Hematocrit 42.7 % (37-47); Hemoglobin 13.7 g/dL (12.0-15.0); Lymphocyte # 1.54 X10^3/ul (0.83-4.51); Lymphocyte % 27.2 % (19-41); Mean Corp Hgb Conc 32.1 g/dL (32-36); Mean Corpuscular Hgb 27.3 pg (27.0-32.0); Mean Corpuscular Volume 85.2 fL (81-99); Mean Platelet Vol. 11.3 fl (6.2-12.0); Monocyte# 0.64 X10^3/uL; Monocyte% 11.3 % (0-10); NRBC Flagged by Analyzer 0 % (0-5); Neutrophil # 3.17 X10^3/uL (2.7-7.7); Platelet Count 189 K/mm3 (150-450); RBC Distribution Width CV 12.9 % (11.6-14.6); RBC Distribution Width SD 39.6 fl (35.1-43.9); Red Blood Count 5.01 M/mm3 (4.2-5.4); White Blood Count 5.7 K/mm3 (4.4-11.0)
[2022-11-08] MEDS: Ondansetron ODT 4 MG Tablet PO (17:26)
[2022-11-08] MEDS: oxyCODONE 5 MG Tablet PO (17:26)
[2022-11-08 17:31] LABS: Bacteria RARE /hpf (None Seen); Squamous Epithelial Cells - UA 0-5 SEEN /hpf (5-10)
[2022-11-08 17:37] LABS: AST(SGOT) 10 U/L (15-37); Alanine Aminotransfer ALT/SGPT 20 U/L (13-56); Albumin, Serum 3.8 g/dL (3.2-5.0); Alkaline Phosphatase 72 U/L (45-117); Anion Gap 5 (5-15); BUN 11 mg/dL (7-18); BUN/Creat Ratio 14.6 RATIO (10-20); Bilirubin, Direct 0.07 mg/dL (0.00-0.30); Calcium,Total 9.3 mg/dL (8.5-10.1); Chloride 105 mmol/L (98-107); Creatinine, Serum 0.75 mg/dL (0.55-1.02); EST Glomerular Filtration Rate 93 mL/min (>60); Est Glom Filt Rate - Afr Amer 112 mL/min (>60); Estimated Creatinine Clearance 98.01 ml/min; Globulin 3.8 g/dL (2.2-4.2); Glucose 84 mg/dL (74-106); Lipase 46 U/L (13-75); Potassium 3.2 mmol/L (3.5-5.1); Protein, Total 7.6 g/dL (6.4-8.2); Sodium Level 137 mmol/L (136-145)
[2022-11-08] MEDS: Potassium Chloride Oral Tablet 20 MEQ 40 MEQ PO (18:49)
== END 2022-11-08 19:30 | disposition home or self-care (01) ==
PROVIDERS: Emergency Provider Emergency Medicine; PCP Internal Medicine; Visit Provider Emergency Medicine
DX: R10.9 Unspecified abdominal pain (principal); N83.201 Unspecified ovarian cyst, right side; F17.210 Nicotine dependence, cigarettes, uncomplicated; I10 Essential (primary) hypertension; F41.8 Other specified anxiety disorders; G43.909 Migraine, unspecified, not intractable, without status migrainosus; Z79.899 Other long term (current) drug therapy; Z90.710 Acquired absence of both cervix and uterus
CPT/HCPCS: J2405; 76705; 76830; 80048; 80076; 81001; 83690; 85025; 96360; 96361; 99283; J7030; A4216

== ENCOUNTER 2022-11-19 20:46 | Emergency (ER) | payer MEDICAID, SELFPAY ==
[2022-11-19 20:47] VITALS: BP 130/94; PULSE 99; RESP 14; TEMP 36.4; O2SAT 100; BMI 36.1
--- NOTE | 2022-11-19 21:18 | CT_ITS ---
INDICATION: RUQ pain EXAMINATION: CT Abdomen And Pelvis W/ Contrast Injection TECHNIQUE: Helically acquired images were obtained of the abdomen and pelvis following IV contrast. 2-D reconstructions reviewed. A radiation dose optimization technique was used for this scan. IV Contrast dosage and agent: 100 cc [id number] Oral contrast: None. COMPARISON: Numerous prior CT abdomen and pelvis exams, most recent from 06/10/2022 FINDINGS: LOWER CHEST: Stable mild bibasilar scarring with slightly elevated right hemidiaphragm. Heart size within normal limits. LIVER: Enlarged liver again noted, measuring 20 cm craniocaudal length. No concerning lesion. GALLBLADDER AND BILIARY TREE: No calcified gallstones identified. No gallbladder wall edema demonstrated. No significant biliary ductal dilation. PANCREAS: No discrete mass or peripancreatic edema. SPLEEN: Spleen borderline enlarged, 12.9 cm length and diameter. No discrete lesion. ADRENAL GLANDS: Unremarkable. KIDNEYS AND URETERS: Normal renal size and position. No perinephric edema or hydronephrosis. No concerning lesion. PERITONEUM: No significant free fluid. No peritoneal free air detected. Stable mild residual scarring within anterior lower abdominal fat, without discrete mass or organized abscess. RETROPERITONEUM: No retroperitoneal mass or pathologic fluid collection. BOWEL: No evidence of acute appendicitis. No bowel obstruction or significant bowel thickening. No focal inflammatory change. LYMPH NODES: No enlarged mesenteric or retroperitoneal lymph nodes. VESSELS: No acute findings. No abdominal aortic aneurysm. URINARY BLADDER: Unremarkable as visualized. REPRODUCTIVE ORGANS: Previous partial hysterectomy. Persistent prominent right adnexal nodular lesion, likely right ovary, measuring 4 x 3.9 cm axial diameter (compared with 3.8 x 3.6 cm on prior exam). ABDOMINAL WALL: Lower abdominal wall scarring and small umbilical fat hernia again noted. BONES: Intact with no suspicious osseous lesion. CT/Abdomen/Pelvis W IV Cont ONLY IMPRESSION: 1. Previous partial hysterectomy with residual prominent right ovary. No significant free pelvic fluid or other acute intra-abdominal abnormality. 2. Stable hepatomegaly and borderline splenomegaly. 3. Other chronic and nonurgent findings within body of report. Electronically Signed: Will Camp MD at 23:09 EDT ,
--- NOTE | 2022-11-19 21:20 | ED.VIS.GI ---
HPI HPI - GI History of Present Illness Chief Complaint: Abd Pain Informant: patient Narrative Narrative: Presents with abdominal pain. Patient's having right upper quadrant abdominal pain. It sounds like she has been having this abdominal pain off and on for quite some time. She has been seen here a couple weeks ago for this. But she has prior visits for abdominal pain. She also has a history of pain from her right ovarian cyst. But she is not having that pain today. She frequently has abdominal pain in fact she says her abdominal pain never goes away. She is seeing Dr. Tracy. She has a study coming up in the next 10 days for liver stiffness and she also has a HIDA scan scheduled. She states the pain increased about 7:00 today. But then she states she has been having it more for the last few days or week. She ate goulash for lunch. She has not eaten dinner but she states she is very hungry right now. She might be getting a little bit nauseated now but no vomiting no diarrhea no blood. Prior abdominal surgeries hysterectomy and left oophorectomy. She also got a postoperative infection and had repeat surgery for this. This certainly could be the origin of some of her pain possibly from scarring. [facility] Medical History Abdominal pain ADHD (attention deficit hyperactivity disorder), combined type Anxiety and depression Arthritis Back pain Bronchitis Cancer Cardiology follow-up encounter Cervical lymphadenopathy Cervical radiculopathy Chronic back pain Chronic pain Chronic RUQ pain Depression Easy bruising Ectopic cardiac beats Fatty liver Fibromyalgia NICOLÁS (generalized anxiety disorder) Almaz's thyroiditis Heartburn History of acne History of echocardiogram History of gestational diabetes History of pain when walking History of stress test Hypertension Hypocalcemia Injury of head and neck Left shoulder pain Left-sided low back pain with left-sided sciatica Localized swelling, mass and lump, neck Melanoma Migraine without aura and with status migrainosus, not intractable Morbid obesity MARCELINO (nonalcoholic steatohepatitis) Numbness and tingling of both upper extremities Numbness of both lower extremities Palpitations Post herpetic neuralgia Restless legs Right femoral fracture RUQ abdominal pain Syncope Thyroid disease Tinnitus Tobacco abuse Vertigo Home Medications vitamin E mixed 400 unit capsule 800 unit PO .qd supplement 04/12/22 [History Last Taken Unknown] amlodipine 5 mg tablet 5 mg PO DAILY bp #90 tabs 05/30/22 [Rx Last Taken Unknown] hydroxyzine pamoate 50 mg capsule 50 mg PO TID PRN anxiety #20 caps 05/30/22 [Rx Last Taken Unknown] meclizine 25 mg tablet 25 mg PO BID PRN dizziness #30 tabs 05/30/22 [Rx Last Taken Unknown] albuterol sulfate 2.5 mg/3 mL (0.083 %) solution for nebulization 2.5 mg (3 mL) inhalation Q6H PRN shortness of breath or wheezing #90 mL 06/27/22 [Rx Last Taken Unknown] cholecalciferol (vitamin D3) 1,250 mcg (50,000 unit) capsule 1,250 mcg PO QWEEK #14 caps 09/02/22 [Rx Last Taken Unknown] levothyroxine 137 mcg tablet 137 mcg PO DAILY synthroid #90 tabs 09/02/22 [Rx Last Taken Unknown] prochlorperazine maleate 10 mg tablet (Compazine) 10 mg PO BID PRN Migraine Symptoms #30 tabs 09/02/22 [Rx Last Taken Unknown] ursodiol 300 mg capsule 300 mg PO BID #180 caps 09/02/22 [Rx Last Taken Unknown] venlafaxine 37.5 mg capsule,extended release 24 hr (Effexor XR) 37.5 mg PO DAILY #60 caps 09/02/22 [Rx Last Taken Unknown] ondansetron 4 mg disintegrating tablet 4 mg PO Q8H PRN PRN Nausea #10 tabs 11/08/22 [Rx Last Taken Unknown] oxycodone-acetaminophen 5 mg-325 mg tablet (Percocet) 1 tab PO Q8H PRN pain 3 days #10 tabs 11/08/22 [Rx Last Taken Unknown] ketoprofen 75 mg capsule 75 mg PO Q6H PRN Migraine Symptoms #100 caps 11/14/22 [Rx Last Taken Unknown] oxycodone-acetaminophen 5 mg-325 mg tablet 1 tab PO Q6H PRN PRN Pain 3 days #10 TABLETS 11/20/22 [Rx Last Taken Unknown] Allergy/AdvReac Type Severity Reaction Status Date / Time promethazine [From Phenergan] Allergy Unknown Unknown Verified 11/19/22 20:49 latex Allergy Itching Verified 11/19/22 20:49 naproxen Allergy Unknown Verified 11/19/22 20:49 Penicillins [PCN] Allergy Rash Verified 11/19/22 20:49 escitalopram [From Lexapro] AdvReac Intermediate Lightheaded Verified 11/19/22 20:49 sertraline [From Zoloft] AdvReac Intermediate Dizzy & Verified 11/19/22 20:49 Headache dicyclomine [From Bentyl] AdvReac Unknown Unknown Verified 11/19/22 20:49 hydrocodone [From Vicodin] AdvReac Other Verified 11/19/22 20:49 ketorolac [From Toradol] AdvReac Other Verified 11/19/22 20:49 Family History Grandmother Diabetes Other Family history of skin cancer High cholesterol Hypertension Surgical History History of surgery on arm History of thyroidectomy History of total vaginal hysterectomy (TVH) (~03/22/22) Status post incision and drainage (~04/15/22) Social History Smoking Status: Current every day smoker tobacco type: cigarettes Tobacco: How many years used: 13 Electronic Cigarette Use: not used second hand exposure: No alcohol intake: current alcohol intake frequency: holidays/special occasions only substance use type: does not use caffeine: Yes what type of physical activity do you participate in: none seatbelt use: always do you feel safe at home: Yes additional social history: emmy HAMILTON Narrative A complete review of systems was performed and is negative except as documented in the history of present illness. Some specific details below. Constitutional: No recent fevers or chills. EYE: No visual complaints or pain. ENT: No difficulty swallowing. No swelling. No pain. CV: No chest pain or palpitations. Respiratory: No dyspnea. No hemoptysis. No difficulty taking breaths. GI: Please see history of present illness. : No frequency dysuria or hematuria. Musculoskeletal: No recent trauma. No pains. Skin: No rash. Nondiaphoretic. Neuro: No weakness or numbness. Endocrine: No polyuria or polydipsia. EXAM Physical Exam Narrative Exam Narrative: CONSTITUTIONAL: Patient is nontoxic in appearance. The patient looks comfortable. HEENT: No notable trauma. Mucous membranes moist. No sinus tenderness. No indication of pain with swallowing. EYES: No conjunctival injection. No icterus. CARDIOVASCULAR: Regular rate. Regular rhythm. No notable murmur. No JVD. RESPIRATORY: No respiratory distress. Breathing is unlabored. No wheezes. No rhonchi. No rales. No pain with a deep breath. GASTROINTESTINAL: Not distended. Bowel sounds are normal. Abdomen shows no lesions or skin changes. She has tenderness in the right upper quadrant with just palpation of the skin. I am not getting rebound or guarding. I am not able to feel a mass. She also has a component of soreness with motion. No lower abdominal tenderness. GENITOURINARY: No tenderness over the bladder. No CVA tenderness. MUSCULOSKELETAL: Atraumatic. No peripheral edema. NEUROLOGICAL: Patient is alert and appropriate. No focal deficit noted. SKIN: No noted rashes. No diaphoresis. PSYCHIATRIC: Patient is calm. Mood is appropriate. Const Vital Signs: 11/19/22 20:47 Temperature 97.6 F L Temperature Source Temporal Pulse Rate 99 Respiratory Rate 14 Blood Pressure 130/94 H Blood Pressure Mean 106 Pulse Ox 100 MDM MDM MDM Narrative Medical decision making narrative: Patient CBC is normal. Patient's electrolytes are normal. Patient's liver function test are normal. Patient's lipase is normal. My independent interpretation of the CT shows no sign of acute obstruction or abnormal fluid collection. Final reading did shows what is suspected to be the right ovary. Clinically and historically this is the ovary that is remaining. No other acute process to explain the patient's symptoms. I am wondering if this patient's symptoms may be related to prior scarring. She is being worked up for gallbladder issues and it sounds like she has a HIDA scan. She does have slight abnormalities of the liver that are stable. She has seen her SPEECH AND LANGUAGE SPECIALIST and then a specialist in [place] but they do not want to remove the ovary due to significant scarring that was in the area at prior surgery. I wonder if she is having adhesions causing some of her symptoms although I cannot verify this. I will give her a few pain meds. She has close follow-up with her torch heater and further studies in the next 2 weeks. Lab Data Attestation: I reviewed the patient's lab results. Labs: Laboratory Results - last 24 hr 11/19/22 21:50 WBC 6.0 RBC 4.91 Hgb 13.5 Hct 41.9 MCV 85.3 MCH 27.5 MCHC 32.2 RDW Std Deviation 39.4 RDW Coeff of Mikel 12.7 Plt Count 194 MPV 10.7 Immature Gran % (Auto) 0.300 Neut % (Auto) 55.7 Lymph % (Auto) 30.7 [place] % (Auto) 8.1 Eos % (Auto) 4.7 Baso % (Auto) 0.5 Absolute Neuts (auto) 3.3 Absolute Lymphs (auto) 1.83 Nucleated RBC % 0 Sodium 138 Potassium 3.5 Chloride 105 Carbon Dioxide 30.0 Anion Gap 3 L BUN 11 Creatinine 0.80 Estim Creat Clear Calc 91.88 Est GFR (MDRD) Af Amer 105 Est GFR (MDRD) Non-Af 86 BUN/Creatinine Ratio 13.7 Glucose 95 Calcium 9.2 Total Bilirubin 0.40 AST 15 ALT 25 Alkaline Phosphatase 74 Total Protein 7.4 Albumin 3.7 Globulin 3.7 Albumin/Globulin Ratio 1.0 Lipase 30 Radiography Diagnostic Testing: Clinical Impression(s) from Imaging Studies Abdomen/Pelvis CT 11/19/22 21:18 IMPRESSION: 1. Previous partial hysterectomy with residual prominent right ovary. No significant free pelvic fluid or other acute intra-abdominal abnormality. 2. Stable hepatomegaly and borderline splenomegaly. 3. Other chronic and nonurgent findings within body of report. Electronically Signed: Will Camp MD at 23:09 EDT Reading Location ID and State: [facility] / [place] Tel , Service support , Discharge Plan Triage Chief Complaint: Abd Pain ED Provider: Shaji Padilla Dx/Rx/DC Orders Clinical Impression: Right sided abdominal pain Instructions: ED Abdominal Pain Unkn Cause Fem Prescriptions: New oxycodone-acetaminophen [oxycodone-acetaminophen] 5-325 mg tablet 1 tab PO Q6H PRN PRN (Reason: Pain) 3 Days Qty: 10 0RF No Action amlodipine 5 mg tablet 5 mg PO DAILY Qty: 90 1RF hydroxyzine pamoate 50 mg capsule 50 mg PO TID PRN (Reason: anxiety) Qty: 20 0RF meclizine 25 mg tablet 25 mg PO BID PRN (Reason: dizziness) Qty: 30 1RF levothyroxine 137 mcg tablet 137 mcg PO DAILY Qty: 90 1RF ursodiol 300 mg capsule 300 mg PO BID Qty: 180 1RF prochlorperazine maleate [Compazine] 10 mg tablet 10 mg PO BID PRN (Reason: Migraine Symptoms) Qty: 30 1RF cholecalciferol (vitamin D3) 1,250 mcg (50,000 unit) capsule 1,250 mcg PO QWEEK Qty: 14 1RF venlafaxine [Effexor XR] 37.5 mg capsule,extended release 24hr 37.5 mg PO DAILY Qty: 60 2RF Rx Instructions: Take daily x 2 weeks the increase to 75 mg vitamin E mixed 400 unit capsule 800 unit PO .qd oxycodone-acetaminophen [Percocet] 5-325 mg tablet 1 tab PO Q8H PRN (Reason: pain) 3 Days Qty: 10 0RF ondansetron 4 mg tablet,disintegrating 4 mg PO Q8H PRN PRN (Reason: Nausea) Qty: 10 0RF albuterol sulfate 2.5 mg /3 mL (0.083 %) solution for nebulization 2.5 mg inhalation Q6H PRN (Reason: shortness of breath or wheezing) Qty: 90 1RF ketoprofen 75 mg capsule 75 mg PO Q6H PRN (Reason: Migraine Symptoms) Qty: 100 0RF Rx Instructions: 1 cap PO at on set of headache max of 3 in 24 hours, max 20 per month Primary Care Provider: Jose Alejandro London Referrals: Jose Alejandro London MD [Primary Care Provider] - As soon as possible Activity Restrictions/Additional Instructions: Follow-up with Dr. Tracy and your supply chain specialist. Disposition Disposition: Home, Self Care
[2022-11-19] MEDS: 0.9% Normal Saline 1,000 ML 1000 ML IV (21:52)
[2022-11-19 21:57] LABS: Absolute Lymphocyte Count 1.83 X10^3/uL (0.83-4.51); Absolute Neutrophil Count 3.3 X10^3/uL (2.0-7.7); Basophil# 0.03 X10^3/uL; Basophil% 0.5 % (0-1); Eosinophil# 0.28 X10^3/uL; Eosinophils% 4.7 % (0-5); Hematocrit 41.9 % (37-47); Hemoglobin 13.5 g/dL (12.0-15.0); Lymphocyte # 1.83 X10^3/ul (0.83-4.51); Lymphocyte % 30.7 % (19-41); Mean Corp Hgb Conc 32.2 g/dL (32-36); Mean Corpuscular Hgb 27.5 pg (27.0-32.0); Mean Corpuscular Volume 85.3 fL (81-99); Mean Platelet Vol. 10.7 fl (6.2-12.0); Monocyte# 0.48 X10^3/uL; Monocyte% 8.1 % (0-10); NRBC Flagged by Analyzer 0 % (0-5); Neutrophil # 3.32 X10^3/uL (2.7-7.7); Neutrophil % 55.7 % (47-70); Platelet Count 194 K/mm3 (150-450); RBC Distribution Width CV 12.7 % (11.6-14.6); RBC Distribution Width SD 39.4 fl (35.1-43.9); Red Blood Count 4.91 M/mm3 (4.2-5.4)
[2022-11-19 22:15] LABS: AST(SGOT) 15 U/L (15-37); Alanine Aminotransfer ALT/SGPT 25 U/L (13-56); Albumin, Serum 3.7 g/dL (3.2-5.0); Alkaline Phosphatase 74 U/L (45-117); Anion Gap 3 (5-15); BUN 11 mg/dL (7-18); BUN/Creat Ratio 13.7 RATIO (10-20); Calcium,Total 9.2 mg/dL (8.5-10.1); Chloride 105 mmol/L (98-107); EST Glomerular Filtration Rate 86 mL/min (>60); Est Glom Filt Rate - Afr Amer 105 mL/min (>60); Estimated Creatinine Clearance 91.88 ml/min; Globulin 3.7 g/dL (2.2-4.2); Glucose 95 mg/dL (74-106); Lipase 30 U/L (13-75); Potassium 3.5 mmol/L (3.5-5.1); Protein, Total 7.4 g/dL (6.4-8.2); Sodium Level 138 mmol/L (136-145)
--- NOTE | 2022-11-19 23:27 | ED.RN ---
Pt states she cannot take IV pain medication because it makes her feel weird. Pt requesting oral pain meds, aware.
[2022-11-20] MEDS: oxyCODONE 5 MG Tablet PO (00:10)
== END 2022-11-20 00:17 | disposition home or self-care (01) ==
PROVIDERS: Emergency Provider Emergency Medicine; PCP Internal Medicine; Visit Provider Emergency Medicine
DX: R10.11 Right upper quadrant pain (principal); I10 Essential (primary) hypertension; E06.3 Autoimmune thyroiditis; F17.210 Nicotine dependence, cigarettes, uncomplicated; Z79.899 Other long term (current) drug therapy
CPT/HCPCS: J2405; 74177; 80053; 83690; 85025; 96360; 96361; 99282; J7030; Q9967; A4216

== ENCOUNTER → 2022-11-25 | Outpatient (CLI) | payer MEDICAID, SELFPAY ==
--- NOTE | 2022-11-25 09:34 | US_ITS ---
STUDY: ABDOMINAL ULTRASOUND - ELASTOGRAPHY REASON FOR VISIT: Female, 37 years old. Fatty infiltration of the liver. TECHNIQUE: Liver stiffness measurements were obtained on a [facility] RS 85 ultrasound machine using a CA 1-7 probe following the SRU guidelines. 3 measurements were obtained using a 2-D-SWE method. TheIQR/M was 21 % suggesting a quality data set. TECHNICAL QUALITY: Adequate. COMPARISON: None. FINDINGS: Liver: Fatty infiltration of the liver. Median liver stiffness measured 6.8 kPa. Abdomen: There is no demonstrated mass lesion. US/Elastography Parenchyma/Organ IMPRESSION: Liver stiffness measures 6.8 kPa compatible with F2-F3 (Mild to moderate liver fibrosis) Metavir score. Electronically Signed: Christiano Eduardo MD at 15:13 EDT ,
== END | disposition home or self-care (01) ==
LOC: US 09:33
PROVIDERS: PCP Internal Medicine; Referring Provider Internal Medicine Gastroenterology; Visit Provider Internal Medicine Gastroenterology
DX: K76.0 Fatty (change of) liver, not elsewhere classified (principal)
CPT/HCPCS: 76981

== ENCOUNTER → 2022-11-28 | Outpatient (CLI) | payer MEDICAID, SELFPAY ==
--- NOTE | 2022-11-28 10:02 | NM_ITS ---
CLINICAL: 37-year-old female with history of right upper quadrant abdominal pain. RADIONUCLIDE HEPATOBILIARY SCINTIGRAPHY COMPARISON: None available FINDINGS: Following the intravenous administration of 5.1 mCi of 99m Tc Mebrofenin, hepatobiliary images reveal: 1. Relatively prompt and homogeneous radiopharmaceutical concentration is noted by a normal sized liver. No parenchymal defects are identified. 2. Gallbladder activity is identified at 75 minutes post radiopharmaceutical administration. 3. Small intestinal tract is observed at 45 minutes following tracer injection. 4. Washout of the radiopharmaceutical by the hepatic parenchyma appears qualitatively normal. Cholecystokinin (0.02 ug/kg) was administered intravenously over a 30-minute period. The post CCK gallbladder ejection fraction calculated at 20 minutes following Cholecystokinin administration was noted to be 56.0 % (normal greater than 35%). During 30 minutes of post CCK imaging, there is no scintigraphic evidence of reflux of the radiotracer into the common hepatic duct or refilling of the gallbladder. There is scintigraphic evidence of post cholecystokinin duodenal gastric reflux. NM/Hepatobilliary Img w/Pharm Int IMPRESSION: 1. A gallbladder ejection fraction calculated to be greater than 35% following the administration of Cholecystokinin makes the probability of functional hepatobiliary disease (gallbladder and/or sphincter of Oddi dyskinesia) and/or organic hepatobiliary disease (chronic acalculous cholecystitis and/or cystic duct syndrome) to be low. (Ashok Minor et al, Journal of Nuclear Medicine 32:1695, 1991). 2. There is scintigraphic evidence of post CCK duodenal-gastric reflux. Electronically Signed: Erik Lemus, at 9:04 EDT ,
== END | disposition home or self-care (01) ==
LOC: NM 10:01
PROVIDERS: PCP Internal Medicine; Referring Provider Internal Medicine Gastroenterology; Visit Provider Internal Medicine Gastroenterology
DX: R10.11 Right upper quadrant pain (principal)
CPT/HCPCS: 78227; A9537; J2805

== ENCOUNTER → 2022-12-06 | Outpatient (CLI) | payer MEDICAID, SELFPAY ==
--- NOTE | 2022-12-06 13:06 | US_ITS ---
INDICATION: pelvic pain EXAMINATION: Ultrasound US Pelvis Non OB Complete With Transvaginal Imaging TECHNIQUE: Transabdominal and transvaginal pelvic ultrasound was performed. Grayscale, spectral waveform, and color flow Doppler evaluation of the adnexa. COMPARISON: Endovaginal pelvic ultrasound November 08, 2022; CT abdomen and pelvis November 19, 2022 FINDINGS: UTERUS: Absent. RIGHT OVARY: 6.3 x 5.5 x 4.8 cm. This includes a complex 4.9 x 4.6 x 3.1 cm hypoechoic, cystic-appearing structure with internal septations and other internal echogenicities. There is normal arterial inflow and venous outflow present in the right ovary. LEFT OVARY: Surgically absent. No left adnexal mass is demonstrated. FREE FLUID: None. US/Pelvic w/ Transvaginal IMPRESSION: 1. Prior hysterectomy and left nephrectomy. 2. Complex 4.9 cm cystic structure of indeterminate etiology in the right ovary, increased in size from ultrasound dated November 08, 2022. Electronically Signed: Homero Laughlin MD at 16:24 EDT Reading Location ID and State: [id number] / Unknown , Service support ,
== END | disposition home or self-care (01) ==
LOC: US 13:05
PROVIDERS: PCP Internal Medicine; Referring Provider Obstetrics & Gynecology; Visit Provider Obstetrics & Gynecology
DX: R10.2 Pelvic and perineal pain (principal); N83.209 Unspecified ovarian cyst, unspecified side
CPT/HCPCS: 76830; 76856; 93976

== ENCOUNTER → 2022-12-15 | Outpatient (CLI) | payer MEDICAID, SELFPAY ==
[2022-12-17 12:08] LABS: Chlamydia By Nucleic Acid AMP Negative (Negative); Gonococcus By Nucleic Acid AMP Negative (Negative)
== END | disposition home or self-care (01) ==
PROVIDERS: PCP Internal Medicine; Referring Provider Nurse Practitioner Women's Health; Visit Provider Nurse Practitioner Women's Health
DX: N89.8 Other specified noninflammatory disorders of vagina (principal)
CPT/HCPCS: 87070; 87205; 87491; 87591

== ENCOUNTER 2022-12-25 12:30 | Emergency (ER) | payer MEDICAID, SELFPAY ==
[2022-12-25 12:31] VITALS: BP 145/124; PULSE 90; RESP 18; TEMP 36.2; O2SAT 100; BMI 36.3
--- NOTE | 2022-12-25 12:55 | EX.ED.DYSGE1 ---
HPI <ADRI Burgess - Last Filed: 12/25/22 14:24> History of Present Illness Chief Complaint: Chest Other Narrative Narrative: 37-year-old female presents with left sided neck and trapezius pain into the shoulder. She has had this for over 2 years but it seemed to worsen over the last 6 months especially over the last couple days. There is no injury or no recent change in activity. It is painful to move but there is no weakness, numbness or tingling. She takes ketoprofen and Flexeril with little relief. Over the last couple days she is also having a fluttering sensation under her left breast but its not painful. She has no chest pain, shortness of breath, or nausea or vomiting. She has a chronic smoker's cough which is unchanged. [facility] <ADRI Burgess - Last Filed: 12/25/22 14:24> [facility] Medical History Abdominal pain ADHD (attention deficit hyperactivity disorder), combined type Anxiety and depression Arthritis Back pain Bronchitis Cancer Cardiology follow-up encounter Cervical lymphadenopathy Cervical radiculopathy Chronic back pain Chronic pain Chronic RUQ pain Depression Easy bruising Ectopic cardiac beats Fatty liver Fibromyalgia NICOLÁS (generalized anxiety disorder) Almaz's thyroiditis Heartburn History of acne History of echocardiogram History of gestational diabetes History of pain when walking History of stress test History of ulceration Hypertension Hypocalcemia Injury of head and neck Left shoulder pain Left-sided low back pain with left-sided sciatica Leg cramps Localized swelling, mass and lump, neck Melanoma Migraine without aura and with status migrainosus, not intractable Morbid obesity MARCELINO (nonalcoholic steatohepatitis) Numbness and tingling of both upper extremities Numbness of both lower extremities Palpitations PONV (postoperative nausea and vomiting) Post herpetic neuralgia Restless legs Right femoral fracture RUQ abdominal pain Syncope Thyroid disease Tinnitus Tobacco abuse Vertigo Home Medications vitamin E mixed 400 unit capsule 800 unit PO .qd supplement 04/12/22 [History Last Taken Unknown] hydroxyzine pamoate 50 mg capsule 50 mg PO TID PRN anxiety #20 caps 05/30/22 [Rx Last Taken Unknown] meclizine 25 mg tablet 25 mg PO BID PRN dizziness #30 tabs 05/30/22 [Rx Last Taken Unknown] albuterol sulfate 2.5 mg/3 mL (0.083 %) solution for nebulization 2.5 mg (3 mL) inhalation Q6H PRN shortness of breath or wheezing #90 mL 06/27/22 [Rx Last Taken Unknown] levothyroxine 137 mcg tablet 137 mcg PO DAILY synthroid #90 tabs 09/02/22 [Rx Last Taken Unknown] ursodiol 300 mg capsule 300 mg PO BID #180 caps 09/02/22 [Rx Last Taken Unknown] ketoprofen 75 mg capsule 75 mg PO Q6H PRN Migraine Symptoms #100 caps 11/14/22 [Rx Last Taken Unknown] norethindrone acetate 5 mg tablet 5 mg PO DAILY #30 tabs 12/08/22 [Rx Last Taken Unknown] amlodipine 5 mg tablet 5 mg PO DAILY bp #90 tabs 12/15/22 [Rx Last Taken Unknown] prochlorperazine maleate 10 mg tablet (Compazine) 10 mg PO BID PRN Migraine Symptoms #30 tabs 12/15/22 [Rx Last Taken Unknown] methocarbamol 500 mg tablet 500 mg PO Q8H 5 days #15 tabs 12/25/22 [Rx Last Taken Unknown] Allergy/AdvReac Type Severity Reaction Status Date / Time latex Allergy Itching Verified 12/25/22 12:33 naproxen Allergy Unknown Verified 12/25/22 12:33 Penicillins [PCN] Allergy Rash Verified 12/25/22 12:33 escitalopram [From Lexapro] AdvReac Intermediate Lightheaded Verified 12/25/22 12:33 sertraline [From Zoloft] AdvReac Intermediate Dizzy & Verified 12/25/22 12:33 Headache dicyclomine [From Bentyl] AdvReac Unknown Unknown Verified 12/25/22 12:33 hydrocodone [From Vicodin] AdvReac Other Verified 12/25/22 12:33 ketorolac [From Toradol] AdvReac Other Verified 12/25/22 12:33 Family History Grandmother Diabetes Other Family history of skin cancer High cholesterol Hypertension Surgical History History of surgery on arm History of surgery on lower extremity History of thyroidectomy History of total vaginal hysterectomy (TVH) (~03/22/22) Status post incision and drainage (~04/15/22) Social History Smoking Status: Current every day smoker tobacco type: cigarettes Tobacco: How many years used: 13 Electronic Cigarette Use: not used second hand exposure: No alcohol intake: current alcohol intake frequency: holidays/special occasions only substance use type: does not use caffeine: Yes what type of physical activity do you participate in: none seatbelt use: always do you feel safe at home: Yes additional social history: emmy ROS <ADRI Burgess - Last Filed: 12/25/22 14:24> ROS ED ROS Narrative Constitutional: Negative for fever, chills, malaise. CVS: Negative for chest pain, syncope. Respiratory: Negative for shortness of breath, orthopnea. GI: Negative for abdominal pain, nausea, vomiting, diarrhea. Neuro: Negative for motor/sensory dysfunction. Skin: Negative for rash. EXAM <ADRI Burgess - Last Filed: 12/25/22 14:24> Physical Exam Narrative Exam Narrative: CONST: Patient sitting in no acute distress. EYES: Normal inspection. NECK: Normal inspection. No midline spinal tenderness, tender over left cervical paraspinals and left trapezius. RESP: No respiratory distress, CTAB. Chest wall nontender. No zoster. CVS: Regular rate and rhythm, no murmur, no gallop. ABD: Soft and nontender, no guarding or rebound, nondistended, no hepatosplenomegaly. Back: Normal inspection. SKIN: Color normal, no rash, warm, dry, intact. EXTREMITIES: Normal appearance, no pedal edema. NEURO: Oriented x4. PSYCH: Normal affect. Const Vital Signs: 12/25/22 12:31 12/25/22 13:19 Temperature 97.1 F L Temperature Source Temporal Pulse Rate 90 Respiratory Rate 18 Respiratory Effort Normal Blood Pressure 145/124 H Blood Pressure Mean 131 Pulse Ox 100 Oxygen Delivery Method Room Air <Dr. Ry Enamorado MD - Last Filed: 12/25/22 13:56> Physical Exam Const Vital Signs: 12/25/22 12:31 12/25/22 13:19 Temperature 97.1 F L Temperature Source Temporal Pulse Rate 90 Respiratory Rate 18 Respiratory Effort Normal Blood Pressure 145/124 H Blood Pressure Mean 131 Pulse Ox 100 Oxygen Delivery Method Room Air [facility] <DARI Burgess - Last Filed: 12/25/22 14:24> [facility] Narrative Medical decision making narrative: Patient has acute on chronic left trapezius/shoulder pain. She also has abnormal sensation under her left breast. She appears well and nontoxic with normal vital signs. Normal heart and lung sounds. There is no tenderness over left lower chest wall. No signs of zoster. No abdominal tenderness. She does have very reproducible musculoskeletal pain of her left neck and trapezius area so I suspect musculoskeletal etiology. She states she cannot take Toradol so I gave Norflex. Cardiac work-up was done and is unremarkable. CXR shows no acute process. I prescribed Robaxin and she is already on NSAIDs. I do not think narcotics are appropriate since this is a chronic condition. I recommended she follow-up with her primary care or orthopedic doctor and she was discharged in stable condition. Differential: Musculoskeletal pain, cervical radiculopathy, rotator cuff etiology among others I have personally performed a face to face assessment of the patient and have reviewed the DEIDRE Note. I performed a substantive portion of the visit including all aspects of the following. My segura findings include: History is 37-year-old female with longstanding history of back, shoulder and chest musculoskeletal pain. Presents today with the same. She is used multiple different medications, anti-inflammatories and muscle relaxers without any relief. No history of DVT or PE or cardiac history. Exam is [well-appearing 37-year-old female. Vital signs are stable afebrile. She does not stress. Her pulse ox on percent on room air no signs hypoxia.] Medical Decision Making [HEENT exam unremarkable. Neck nontender no lymphadenopathy. Lungs clear to auscultation bilaterally. Heart regular rhythm no murmur rate about 85. She has reproducible pain over her left chest wall lateral rib cage and back musculature consistent musculoskeletal pain. There is no signs of trauma. No bony deformity. Abdomen soft nontender. Moving all 4 extremities. Equal symmetrical radial pulses. Calves are nontender without edema or cords. Neurologic exam normal.] Patient will undergo cardiac work-up clinically I do not think this is cardiac or PE in the musculoskeletal pain. Other additions or changes: [None] Lab Data Attestation: I reviewed the patient's lab results. Labs: Laboratory Results - last 24 hr 12/25/22 13:16 WBC 4.6 RBC 4.87 Hgb 13.4 Hct 42.1 MCV 86.4 MCH 27.5 MCHC 31.8 L RDW Std Deviation 40.4 RDW Coeff of Mikel 13.0 Plt Count 158 MPV 10.8 Immature Gran % (Auto) 0.400 Neut % (Auto) 58.5 Lymph % (Auto) 26.7 Appling % (Auto) 7.8 Eos % (Auto) 5.7 H Baso % (Auto) 0.9 Absolute Neuts (auto) 2.7 Absolute Lymphs (auto) 1.23 Nucleated RBC % 0 Sodium 138 Potassium 3.8 Chloride 106 Carbon Dioxide 26.0 Anion Gap 6 BUN 8 Creatinine 0.71 Estim Creat Clear Calc 103.53 Est GFR (MDRD) Af Amer 120 Est GFR (MDRD) Non-Af 100 BUN/Creatinine Ratio 11.3 Glucose 124 H Calcium 8.6 Troponin I High Sens 3 Radiography Diagnostic Testing: Clinical Impression(s) from Imaging Studies Chest X-Ray 12/25/22 13:15 IMPRESSION: Normal x-ray examination of the chest. Electronically Signed: Erik Odonnell MD at 13:33 EDT , ED attending interpretation of 2- view chest x-ray shows normal heart size, no acute infiltrate, edema, or effusion. EKG Initial EKG: Attestation: I personally reviewed and interpreted this EKG as follows: Comments: ED attending interpretation of EKG is normal sinus rhythm at 80 bpm, normal intervals, no ectopy, no STEMI criteria <Dr. Ry Enamorado MD - Last Filed: 12/25/22 13:56> [facility] MDM Narrative Medical decision making narrative: I have personally performed a face to face assessment of the patient and have reviewed the DEIDRE Note. I performed a substantive portion of the visit including all aspects of the following. My segura findings include: History is 37-year-old female with longstanding history of back, shoulder and chest musculoskeletal pain. Presents today with the same. She is used multiple different medications, anti-inflammatories and muscle relaxers without any relief. No history of DVT or PE or cardiac history. Exam is [well-appearing 37-year-old female. Vital signs are stable afebrile. She does not stress. Her pulse ox on percent on room air no signs hypoxia.] Medical Decision Making [HEENT exam unremarkable. Neck nontender no lymphadenopathy. Lungs clear to auscultation bilaterally. Heart regular rhythm no murmur rate about 85. She has reproducible pain over her left chest wall lateral rib cage and back musculature consistent musculoskeletal pain. There is no signs of trauma. No bony deformity. Abdomen soft nontender. Moving all 4 extremities. Equal symmetrical radial pulses. Calves are nontender without edema or cords. Neurologic exam normal.] Patient will undergo cardiac work-up clinically I do not think this is cardiac or PE in the musculoskeletal pain. Other additions or changes: [None] History & Record Review Discussion w/independent historian: Patient Lab Data Lab results narrative: CBC normal. Chemistries unremarkable. Normal gap. Normal creatinine. Normal troponin 3. Chest x-ray is unremarkable. Labs: Laboratory Results - last 24 hr 12/25/22 13:16 WBC 4.6 RBC 4.87 Hgb 13.4 Hct 42.1 MCV 86.4 MCH 27.5 MCHC 31.8 L RDW Std Deviation 40.4 RDW Coeff of Mikel 13.0 Plt Count 158 MPV 10.8 Immature Gran % (Auto) 0.400 Neut % (Auto) 58.5 Lymph % (Auto) 26.7 Appling % (Auto) 7.8 Eos % (Auto) 5.7 H Baso % (Auto) 0.9 Absolute Neuts (auto) 2.7 Absolute Lymphs (auto) 1.23 Nucleated RBC % 0 Sodium 138 Potassium 3.8 Chloride 106 Carbon Dioxide 26.0 Anion Gap 6 BUN 8 Creatinine 0.71 Estim Creat Clear Calc 103.53 Est GFR (MDRD) Af Amer 120 Est GFR (MDRD) Non-Af 100 BUN/Creatinine Ratio 11.3 Glucose 124 H Calcium 8.6 Troponin I High Sens 3 Radiography Chest X-Ray - ED: 2 View, Read by ED Physician, Read by Radiologist, Normal, Heart, Lungs, Mediastinum, Bony Structures, No Acute Disease and Chronic Changes Diagnostic Testing: Clinical Impression(s) from Imaging Studies Chest X-Ray 12/25/22 13:15 IMPRESSION: Normal x-ray examination of the chest. Electronically Signed: Erik Odonnell MD at 13:33 EDT , Rhythm Strip Rhythm Strip: Sinus Rhythm Rate: 80 EKG Initial EKG: Interpretation: Sinus Rhythm and No Acute Injury Pattern Discharge Plan Triage Chief Complaint: Chest Other ED Midlevel Provider: Stephany Robbins ED Provider: Ry Enamorado Dx/Rx/DC Orders Clinical Impression: Musculoskeletal arm pain Instructions: Medicine for Pain, Chest Pain [facility] Prescriptions: New methocarbamol 500 mg tablet 500 mg PO Q8H 5 Days Qty: 15 0RF No Action hydroxyzine pamoate 50 mg capsule 50 mg PO TID PRN (Reason: anxiety) Qty: 20 0RF meclizine 25 mg tablet 25 mg PO BID PRN (Reason: dizziness) Qty: 30 1RF levothyroxine 137 mcg tablet 137 mcg PO DAILY Qty: 90 1RF ursodiol 300 mg capsule 300 mg PO BID Qty: 180 1RF norethindrone acetate 5 mg tablet 5 mg PO DAILY Qty: 30 6RF vitamin E mixed 400 unit capsule 800 unit PO .qd albuterol sulfate 2.5 mg /3 mL (0.083 %) solution for nebulization 2.5 mg inhalation Q6H PRN (Reason: shortness of breath or wheezing) Qty: 90 1RF ketoprofen 75 mg capsule 75 mg PO Q6H PRN (Reason: Migraine Symptoms) Qty: 100 0RF Rx Instructions: 1 cap PO at on set of headache max of 3 in 24 hours, max 20 per month amlodipine 5 mg tablet 5 mg PO DAILY Qty: 90 1RF prochlorperazine maleate [Compazine] 10 mg tablet 10 mg PO BID PRN (Reason: Migraine Symptoms) Qty: 30 1RF Primary Care Provider: Jose Alejandro London Referrals: Jose Alejandro London MD [Primary Care Provider] - Activity Restrictions/Additional Instructions: Today your cardiac work-up was normal. Based on your examination I think you have musculoskeletal pain in the trapezius and shoulder area and prescribed a different muscle relaxer you can try. You can also add Tylenol 1000 mg every 6 hours to your regimen of ketoprofen. Please follow-up with your primary care doctor. Disposition Disposition: Home, Self Care
--- NOTE | 2022-12-25 13:15 | RAD_ITS ---
STUDY: X-RAY CHEST REASON FOR EXAM: Female, 37 years old. chest pain TECHNIQUE: PA and lateral views of the chest. COMPARISON: 08/17/2022 FINDINGS: The lungs are clear and expanded. There is no demonstrated pleural abnormality. Normal size heart. Normal mediastinum and tho. Normal visualized pulmonary arteries. Normal visualized aortic arch and descending thoracic aorta. Normal visualized thoracic spine. Normal visualized ribs, clavicles, and shoulders. There is no demonstrated abnormality of the visualized soft tissue structures of the upper abdomen. RAD/Chest PA and Lateral IMPRESSION: Normal x-ray examination of the chest. Electronically Signed: Erik Odonnell MD at 13:33 EDT ,
--- NOTE | 2022-12-25 13:22 | EKG12_ITS ---
Test Reason : CHEST OTHER Blood Pressure : / mmHG Vent. Rate : 080 BPM Atrial Rate : 080 BPM P-R Int : 172 ms QRS Dur : 086 ms QT Int : 352 ms P-R-T Axes : 022 048 031 degrees QTc Int : 405 ms Normal sinus rhythm Normal ECG Confirmed by ANNA HARTMAN, SHAYNA ([id number]), material expeditor JULIO HDEZ ([id number]) on 12/26/2022 1:29:09 PM Referred By: Confirmed By:SHAYNA CASTILLO MD
[2022-12-25 13:25] LABS: Absolute Lymphocyte Count 1.23 X10^3/uL (0.83-4.51); Absolute Neutrophil Count 2.7 X10^3/uL (2.0-7.7); Basophil# 0.04 X10^3/uL; Basophil% 0.9 % (0-1); Eosinophil# 0.26 X10^3/uL; Eosinophils% 5.7 % (0-5); Hematocrit 42.1 % (37-47); Hemoglobin 13.4 g/dL (12.0-15.0); Lymphocyte # 1.23 X10^3/ul (0.83-4.51); Lymphocyte % 26.7 % (19-41); Mean Corp Hgb Conc 31.8 g/dL (32-36); Mean Corpuscular Hgb 27.5 pg (27.0-32.0); Mean Corpuscular Volume 86.4 fL (81-99); Mean Platelet Vol. 10.8 fl (6.2-12.0); Monocyte# 0.36 X10^3/uL; Monocyte% 7.8 % (0-10); NRBC Flagged by Analyzer 0 % (0-5); Neutrophil # 2.69 X10^3/uL (2.7-7.7); Neutrophil % 58.5 % (47-70); Platelet Count 158 K/mm3 (150-450); RBC Distribution Width SD 40.4 fl (35.1-43.9); Red Blood Count 4.87 M/mm3 (4.2-5.4); White Blood Count 4.6 K/mm3 (4.4-11.0)
[2022-12-25 13:41] LABS: Anion Gap 6 (5-15); BUN 8 mg/dL (7-18); BUN/Creat Ratio 11.3 RATIO (10-20); Calcium,Total 8.6 mg/dL (8.5-10.1); Chloride 106 mmol/L (98-107); Creatinine, Serum 0.71 mg/dL (0.55-1.02); EST Glomerular Filtration Rate 100 mL/min (>60); Est Glom Filt Rate - Afr Amer 120 mL/min (>60); Estimated Creatinine Clearance 103.53 ml/min; Glucose 124 mg/dL (74-106); Potassium 3.8 mmol/L (3.5-5.1); Sodium Level 138 mmol/L (136-145); Troponin-I HS 3 pg/mL (3.0-54.0)
== END 2022-12-25 14:25 | disposition home or self-care (01) ==
PROVIDERS: Physician Assistant; Emergency Provider Emergency Medicine; PCP Internal Medicine; Visit Provider Emergency Medicine
DX: M79.602 Pain in left arm (principal); J41.0 Simple chronic bronchitis; M54.9 Dorsalgia, unspecified; I10 Essential (primary) hypertension; M25.512 Pain in left shoulder; G89.29 Other chronic pain; F17.210 Nicotine dependence, cigarettes, uncomplicated; Z79.890 Hormone replacement therapy; Z79.899 Other long term (current) drug therapy
CPT/HCPCS: 71046; 80048; 84484; 85025; 93005; 99282

== ENCOUNTER 2023-02-04 18:43 | Emergency (ER) | payer MEDICAID, SELFPAY ==
[2023-02-04 18:44] VITALS: BP 125/89; PULSE 88; RESP 18; TEMP 36.4; O2SAT 100; BMI 36.4
[2023-02-04] MEDS: oxyCODONE 5 MG Tablet PO (20:02)
[2023-02-04] MEDS: Ondansetron ODT 4 MG Tablet PO (20:02)
[2023-02-04 20:12] VITALS: RESP 16
--- NOTE | 2023-02-04 20:47 | ED.VIS.FEGU ---
HPI HPI - Female History of Present Illness Chief Complaint: Female C/O Informant: patient Narrative Narrative: Patient is a 37-year-old female with history of right ovarian cyst, recurrent right abdominal pain associated with the cyst as well as MARCELINO, Almaz's thyroiditis, DANA, type 2 diabetes mellitus and anxiety presenting with recurrent right lower abdominal pain as well as left groin wound and left medial thigh pain. Patient has been dealing with cyst in her left inguinal area for the past 2 months. She been on a course of doxycycline for this. She has a started to flareup 2-3 nights ago. She denies any associated drainage. She notes her underwear rub at this area to be seems to irritate it more. She is also having pain rating down her left inner thigh from here and she states its sharp, stabbing and burning which is intermittent. In addition she is having a recurrent right lower quadrant pain for the past week. She states that she had a hysterectomy in March but she had too much scar tissue to safely remove her right ovary. She states she gets cyst on them intermittently has largest 4.8 cm. She is been told it cannot torse because she has so much scar tissue tacking it down but she does get frequent pain every 2 weeks or so associated with it. She is also been seen by minimally invasive specialist at [facility] and told that she is not an operative candidate for this. She states she is having this pain for the past week. Is not different than prior episodes. She denies any associated change in bowel movements or vomiting. No report of any fevers. [facility] Medical History Abdominal pain ADHD (attention deficit hyperactivity disorder), combined type Anxiety and depression Arthritis Back pain Bronchitis Cancer Cardiology follow-up encounter Cervical lymphadenopathy Cervical radiculopathy Chronic back pain Chronic pain Chronic RUQ pain Depression Dermatitis Easy bruising Ectopic cardiac beats Fatty liver Fibromyalgia NICOLÁS (generalized anxiety disorder) Almaz's thyroiditis Heartburn History of acne History of echocardiogram History of gestational diabetes History of pain when walking History of stress test History of ulceration Hypertension Hypocalcemia Injury of head and neck Left shoulder pain Left-sided low back pain with left-sided sciatica Leg cramps Localized swelling, mass and lump, neck Melanoma Migraine without aura and with status migrainosus, not intractable Morbid obesity MARCELINO (nonalcoholic steatohepatitis) Numbness and tingling of both upper extremities Numbness of both lower extremities Palpitations PONV (postoperative nausea and vomiting) Post herpetic neuralgia Restless legs Right femoral fracture RUQ abdominal pain Syncope Thyroid disease Tinnitus Tobacco abuse Vertigo Home Medications vitamin E mixed 400 unit capsule 800 unit PO .qd supplement 04/12/22 [History Last Taken Unknown] hydroxyzine pamoate 50 mg capsule 50 mg PO TID PRN anxiety #20 caps 05/30/22 [Rx Last Taken Unknown] meclizine 25 mg tablet 25 mg PO BID PRN dizziness #30 tabs 05/30/22 [Rx Last Taken Unknown] albuterol sulfate 2.5 mg/3 mL (0.083 %) solution for nebulization 2.5 mg (3 mL) inhalation Q6H PRN shortness of breath or wheezing #90 mL 06/27/22 [Rx Last Taken Unknown] levothyroxine 137 mcg tablet 137 mcg PO DAILY synthroid #90 tabs 09/02/22 [Rx Last Taken Unknown] ursodiol 300 mg capsule 300 mg PO BID #180 caps 09/02/22 [Rx Last Taken Unknown] ketoprofen 75 mg capsule 75 mg PO Q6H PRN Migraine Symptoms #100 caps 11/14/22 [Rx Last Taken Unknown] amlodipine 5 mg tablet 5 mg PO DAILY bp #90 tabs 12/15/22 [Rx Last Taken Unknown] prochlorperazine maleate 10 mg tablet (Compazine) 10 mg PO BID PRN Migraine Symptoms #30 tabs 12/15/22 [Rx Last Taken Unknown] hydrocortisone 2.5 % topical cream with perineal applicator 1 applic MD QD-BID PRN itching #30 grams 01/16/23 [Rx Last Taken Unknown] mupirocin 2 % topical ointment 1 applic topical BID #15 grams 02/04/23 [Rx Last Taken Unknown] oxycodone-acetaminophen 5 mg-325 mg tablet (Percocet) 1 tab PO Q8H PRN pain 3 days #10 tabs 02/04/23 [Rx Last Taken Unknown] Allergy/AdvReac Type Severity Reaction Status Date / Time latex Allergy Itching Verified 02/04/23 18:46 naproxen Allergy Unknown Verified 02/04/23 18:46 Penicillins [PCN] Allergy Rash Verified 02/04/23 18:46 escitalopram [From Lexapro] AdvReac Intermediate Lightheaded Verified 02/04/23 18:46 sertraline [From Zoloft] AdvReac Intermediate Dizzy & Verified 02/04/23 18:46 Headache dicyclomine [From Bentyl] AdvReac Unknown Unknown Verified 02/04/23 18:46 hydrocodone [From Vicodin] AdvReac Other Verified 02/04/23 18:46 ketorolac [From Toradol] AdvReac Other Verified 02/04/23 18:46 Family History Grandmother Diabetes Other Family history of skin cancer High cholesterol Hypertension Surgical History History of surgery on arm History of surgery on lower extremity History of thyroidectomy History of total vaginal hysterectomy (TVH) (~03/22/22) Status post incision and drainage (~04/15/22) Social History Smoking Status: Current every day smoker tobacco type: cigarettes Tobacco: How many years used: 13 Electronic Cigarette Use: not used second hand exposure: No alcohol intake: current alcohol intake frequency: holidays/special occasions only substance use type: does not use caffeine: Yes what type of physical activity do you participate in: none seatbelt use: always do you feel safe at home: Yes additional social history: emmy [facility] ED Constitutional Constitutional ED: Denies chills or fever(s) Gastrointestinal Gastrointestinal: Reports abdominal pain; Denies diarrhea or vomiting Genitourinary Genitourinary ED: Denies dysuria or hematuria Musculoskeletal Musculoskeletal: Reports myalgias; Denies arthralgias Integumentary Reports rash Neurologic Neurologic: Reports paresthesias; Denies headache(s) Psychiatric Psychiatric: Reports anxiety EXAM Physical Exam Const Vital Signs: 02/04/23 18:44 02/04/23 20:12 Temperature 97.6 F L Temperature Source Temporal Pulse Rate 88 Respiratory Rate 18 16 Blood Pressure 125/89 H Blood Pressure Mean 101 Pulse Ox 100 Oxygen Delivery Method Room Air Positive well nourished and well developed General Appearance ED: well developed and NAD HEENT Reports moist mucous membranes Eyes PERRL and EOMs intact bilaterally Chest Wall inspection of chest normal and palpation of chest normal Resp normal respiratory effort and clear to auscultation bilaterally Cardio regular rate and regular rhythm GI normal to inspection, nondistended, normoactive bowel sounds and soft to palpation GI Narrative: Very mild tenderness in the right lower abdomen/pelvic region but no peritoneal signs. Palpation: Negative for guarding or rigid Back/Spine no CVA tenderness Extremity normal to inspection and full ROM Extremity Narrative: Patient has some shotty lymphadenopathy palpated in the left inguinal/proximal thigh area. Some mild tenderness to palpation associate with this. No peripheral edema appreciated. No palpable cords. 2+ PT pulses Neuro oriented x3 Sensorium / Orientation: alert Psych mental status grossly normal Skin Skin Narrative: Patient has a 2 mm slightly ulcerated lesion of the left inguinal area. No associated drainage or cystic changes at this time. No surrounding erythema MDM MDM MDM Narrative Medical decision making narrative: Patient's evaluated for recurrent left inguinal pain as well as right lower quadrant abdominal pain. She appears nontoxic in no acute distress. Vital signs are normal. Exam is pretty benign. She does not have any signs of Bartholin cyst/abscess for the left inguinal area. Suspect is more of a localized irritation associated with her underwear rubbing there. Will prescribe mupirocin and discussed wearing or short underwear that do not hit in that area. She does have this kind of vague shotty lymphadenopathy in the area. No overlying skin changes. This is discussed with her [employer] [facility] as well as her chronic right ovarian pain. It is discussed with Dr. Will Lal who recommended referral to surgery for evaluation of this lymphadenopathy. She is agreeable that further work-up for the right lower pain is not necessary from a gynecologic standpoint. She is comfortable with me giving her a short course of Percocet for pain control especially as she has not had a prescription since November. Patient is counseled on these findings and this plan of care. She is comfortable deferring work-up for another cause of her pain especially as she suspects the right ovary is the cause of the pain. Discharge Plan Triage Chief Complaint: Female C/O ED Provider: Loly Sierra Dx/Rx/DC Orders Clinical Impression: Abdominal pain, RLQ, Wound of left groin, Lymphadenopathy, inguinal Instructions: Lymphadenopathy, ED Ovarian Cyst Prescriptions: New mupirocin 2 % ointment 1 applic topical BID Qty: 15 0RF oxycodone-acetaminophen [Percocet] 5-325 mg tablet 1 tab PO Q8H PRN (Reason: pain) 3 Days Qty: 10 0RF No Action hydroxyzine pamoate 50 mg capsule 50 mg PO TID PRN (Reason: anxiety) Qty: 20 0RF meclizine 25 mg tablet 25 mg PO BID PRN (Reason: dizziness) Qty: 30 1RF levothyroxine 137 mcg tablet 137 mcg PO DAILY Qty: 90 1RF ursodiol 300 mg capsule 300 mg PO BID Qty: 180 1RF hydrocortisone 2.5 % cream with perineal applicator 1 applic MD QD-BID PRN (Reason: itching) Qty: 30 2RF vitamin E mixed 400 unit capsule 800 unit PO .qd albuterol sulfate 2.5 mg /3 mL (0.083 %) solution for nebulization 2.5 mg inhalation Q6H PRN (Reason: shortness of breath or wheezing) Qty: 90 1RF ketoprofen 75 mg capsule 75 mg PO Q6H PRN (Reason: Migraine Symptoms) Qty: 100 0RF Rx Instructions: 1 cap PO at on set of headache max of 3 in 24 hours, max 20 per month amlodipine 5 mg tablet 5 mg PO DAILY Qty: 90 1RF prochlorperazine maleate [Compazine] 10 mg tablet 10 mg PO BID PRN (Reason: Migraine Symptoms) Qty: 30 1RF Primary Care Provider: Jose Alejandro London Referrals: Lukasz Jiménez MD [Med Staff - Active Staff] - As soon as possible Jose Alejandro London MD [Primary Care Provider] - Activity Restrictions/Additional Instructions: UpPlease follow-up with your [employer] for this pain. Lives at antibiotic ointment to the open wounds in your left groin. I we have referred you to general surgery for further evaluation of these lymph nodes and pain in your thigh. You can continue to take your anti-inflammatory (ketoprofen) for pain. Apply cool compresses to the area. Disposition Disposition: Home, Self Care Discharge Date/Time: 02/04/23 21:16
== END 2023-02-04 21:16 | disposition home or self-care (01) ==
PROVIDERS: Emergency Provider Emergency Medicine; PCP Internal Medicine; Visit Provider Emergency Medicine
DX: R10.31 Right lower quadrant pain (principal); E11.9 Type 2 diabetes mellitus without complications; S31.104A Unspecified open wound of abdominal wall, left lower quadrant without penetration into peritoneal cavity, initial encounter; X58.XXXA Exposure to other specified factors, initial encounter; G47.33 Obstructive sleep apnea (adult) (pediatric); I10 Essential (primary) hypertension; R59.0 Localized enlarged lymph nodes; M54.9 Dorsalgia, unspecified; E06.3 Autoimmune thyroiditis; F41.9 Anxiety disorder, unspecified; K75.81 Nonalcoholic steatohepatitis (NASH); M79.652 Pain in left thigh; Z79.890 Hormone replacement therapy; Z79.899 Other long term (current) drug therapy; F17.210 Nicotine dependence, cigarettes, uncomplicated
CPT/HCPCS: 99283

== ENCOUNTER 2023-02-08 17:50 | Emergency (ER) | payer MEDICAID, SELFPAY ==
[2023-02-08 17:51] VITALS: BP 145/95; PULSE 95; RESP 16; TEMP 36.4; O2SAT 100; BMI 36.4
--- NOTE | 2023-02-08 19:52 | CT_ITS ---
STUDY: CT ABDOMEN AND PELVIS WITH CONTRAST REASON FOR EXAM: Female, 37 years old. left groin pain Worsening left groin pain, partial hysterectomy. Diabetic, hypertension. RADIATION DOSAGE (If Supplied By Facility): CTDIvol = ( 14.77 ) mGy, DLP = ( 1347.48 ) mGycm TECHNIQUE: Transaxial images were obtained from the dome of the diaphragm to the symphysis pubis without oral contrast. ml of 100mL Isovue-300 contrast was administered. Sagittal and coronal images were reconstructed. Individualized dose optimization techniques were used for this CT. COMPARISON: CT of abdomen and pelvis dated November 19, 2022 FINDINGS: There are chronic interstitial fibrotic changes of the lung bases. The visualized portions of the heart are within normal limits. Normal liver. The gallbladder is contracted. Mild splenomegaly unchanged maximum measuring 13 cm in diameter. Normal pancreas. Normal bilateral adrenal glands. Normal right kidney. Normal left kidney. No hydronephrosis is present. Normal visualized stomach. Normal small intestine. Normal colon. There is non-visualization of the appendix. No demonstrated free air or free fluid or bowel dilatation. No visualized colonic diverticula or acute inflammation. Normal abdominal aorta. Normal inferior vena cava. Normal retroperitoneum. Normal urinary bladder. There is absence of the uterus consistent with a prior hysterectomy. Right ovarian follicular cyst has developed measuring 5.01 cm in diameter. There is a tiny umbilical hernia containing fat. Redemonstration of subcentimeter bilateral inguinal lymphadenopathy. No visualized inguinal hernias. There are diffuse degenerative changes of the visualized lumbar spine. Right hip hardware is stable. CT/Abdomen/Pelvis W IV Cont ONLY IMPRESSION: 1. No acute process of the abdomen or pelvis 2. Mild splenomegaly unchanged 3. Redemonstration of subcentimeter bilateral inguinal lymphadenopathy. No visualized inguinal hernias. 4. No demonstrated free air or free fluid or bowel dilatation. No visualized colonic diverticula or acute inflammation. 5. Right ovarian follicular cyst has developed measuring 5.01 cm in diameter. Electronically Signed: Joon Tejada MD at 21:26 EDT ,
[2023-02-08] MEDS: oxyCODONE 5 MG Tablet PO (20:03)
[2023-02-08] MEDS: 0.9% Normal Saline (1000mL) 1,000 ML 125 ML IV (20:03)
[2023-02-08] MEDS: Ondansetron ODT 4 MG Tablet PO (20:03)
[2023-02-08 20:11] LABS: Absolute Lymphocyte Count 1.87 X10^3/uL (0.83-4.51); Absolute Neutrophil Count 2.9 X10^3/uL (2.0-7.7); Basophil# 0.05 X10^3/uL; Basophil% 0.9 % (0-1); Eosinophil# 0.25 X10^3/uL; Eosinophils% 4.5 % (0-5); Hemoglobin 13.2 g/dL (12.0-15.0); Lymphocyte # 1.87 X10^3/ul (0.83-4.51); Lymphocyte % 33.5 % (19-41); Mean Corp Hgb Conc 32.2 g/dL (32-36); Mean Corpuscular Hgb 27.8 pg (27.0-32.0); Mean Corpuscular Volume 86.5 fL (81-99); Mean Platelet Vol. 10.8 fl (6.2-12.0); Monocyte# 0.53 X10^3/uL; Monocyte% 9.5 % (0-10); NRBC Flagged by Analyzer 0 % (0-5); Neutrophil # 2.87 X10^3/uL (2.7-7.7); Neutrophil % 51.2 % (47-70); Platelet Count 177 K/mm3 (150-450); RBC Distribution Width SD 40.7 fl (35.1-43.9); Red Blood Count 4.74 M/mm3 (4.2-5.4); White Blood Count 5.6 K/mm3 (4.4-11.0)
[2023-02-08 20:37] LABS: ALB/GLOB Ratio 1.1 RATIO (0.9-2.4); AST(SGOT) 12 U/L (15-37); Alanine Aminotransfer ALT/SGPT 24 U/L (13-56); Albumin, Serum 3.5 g/dL (3.2-5.0); Alkaline Phosphatase 61 U/L (45-117); Anion Gap 4 (5-15); BUN 10 mg/dL (7-18); BUN/Creat Ratio 12.4 RATIO (10-20); Calcium,Total 8.8 mg/dL (8.5-10.1); Chloride 107 mmol/L (98-107); Creatinine, Serum 0.81 mg/dL (0.55-1.02); EST Glomerular Filtration Rate 86 mL/min (>60); Est Glom Filt Rate - Afr Amer 104 mL/min (>60); Estimated Creatinine Clearance 90.75 ml/min; Globulin 3.2 g/dL (2.2-4.2); Glucose 110 mg/dL (74-106); Potassium 3.8 mmol/L (3.5-5.1); Protein, Total 6.7 g/dL (6.4-8.2); Sodium Level 138 mmol/L (136-145)
[2023-02-08 20:42] LABS: Bacteria 0 SEEN /hpf (None Seen); Mucous, Urine 0 SEEN /hpf (<or=2+); Red Blood Cells-Urine 0 SEEN /hpf (0-5); White Blood Cells 0 SEEN /hpf (0-5)
[2023-02-08 20:56] LABS: Color, Urine Yellow (Yellow); Glucose, Dipstick Normal (Normal); Ketone-Dipstick Negative (Negative); Leukocyte Esterase-Dipstick Negative /ul (Negative); Nitrite-Dipstick Negative (Negative); Occult Blood-Urine Negative /ul (Negative); Protein-Dipstick Negative (Negative); Urine Bilirubin Dipstick Negative (Negative); Urine Clarity Clear (Clear); Urine Urobilinogen Normal (Normal)
[2023-02-08 21:02] LABS: Squamous Epithelial Cells - UA 0-5 SEEN /hpf (5-10)
--- NOTE | 2023-02-08 21:24 | EX.ED.DYSGE1 ---
HPI History of Present Illness Chief Complaint: Abd Pain Informant: patient Narrative Narrative: Patient is a 37-year-old female with history of chronic right abdominal pain associated with Ovarian cyst (not a surgical candidate), hypothyroid, hypertension, chronic back pain, fibromyalgia, anxiety presenting with continued/worsening left groin pain. Patient states is now rating down to her thigh. She was seen in the ER for some pain associated with this 4 days ago. She was placed on mupirocin ointment as she had a small overlying skin change. She states that sometimes the area swells and goes down over the past month or so. She has been on a course of antibiotics for it. She feels like it is more swollen now and is having more paresthesias going down her inner thigh now down to her lower leg. Denies associated back pain. Denies any aggravating or alleviating symptoms. No fever or chills. Denies any GI or symptoms. No other complaints at this time. Was just referred to surgery for swollen lymph nodes in the area. Has an ultrasound outpatient scheduled for the area and will follow up with surgery. [facility] Medical History Abdominal pain ADHD (attention deficit hyperactivity disorder), combined type Anxiety and depression Arthritis Back pain Bronchitis Cancer Cardiology follow-up encounter Cervical lymphadenopathy Cervical radiculopathy Chronic back pain Chronic pain Chronic RUQ pain Depression Dermatitis Easy bruising Ectopic cardiac beats Fatty liver Fibromyalgia NICOLÁS (generalized anxiety disorder) Almaz's thyroiditis Heartburn History of acne History of echocardiogram History of gestational diabetes History of pain when walking History of stress test History of ulceration Hypertension Hypocalcemia Injury of head and neck Left shoulder pain Left-sided low back pain with left-sided sciatica Leg cramps Localized swelling, mass and lump, neck Melanoma Migraine without aura and with status migrainosus, not intractable Morbid obesity HOWE (nonalcoholic steatohepatitis) Numbness and tingling of both upper extremities Numbness of both lower extremities Palpitations PONV (postoperative nausea and vomiting) Post herpetic neuralgia Restless legs Right femoral fracture RUQ abdominal pain Syncope Thyroid disease Tinnitus Tobacco abuse Vertigo Home Medications vitamin E mixed 400 unit capsule 800 unit PO .qd supplement 04/12/22 [History Last Taken Unknown] hydroxyzine pamoate 50 mg capsule 50 mg PO TID PRN anxiety #20 caps 05/30/22 [Rx Last Taken Unknown] meclizine 25 mg tablet 25 mg PO BID PRN dizziness #30 tabs 05/30/22 [Rx Last Taken Unknown] albuterol sulfate 2.5 mg/3 mL (0.083 %) solution for nebulization 2.5 mg (3 mL) inhalation Q6H PRN shortness of breath or wheezing #90 mL 06/27/22 [Rx Last Taken Unknown] levothyroxine 137 mcg tablet 137 mcg PO DAILY synthroid #90 tabs 09/02/22 [Rx Last Taken Unknown] ursodiol 300 mg capsule 300 mg PO BID #180 caps 09/02/22 [Rx Last Taken Unknown] ketoprofen 75 mg capsule 75 mg PO Q6H PRN Migraine Symptoms #100 caps 11/14/22 [Rx Last Taken Unknown] amlodipine 5 mg tablet 5 mg PO DAILY bp #90 tabs 12/15/22 [Rx Last Taken Unknown] prochlorperazine maleate 10 mg tablet (Compazine) 10 mg PO BID PRN Migraine Symptoms #30 tabs 12/15/22 [Rx Last Taken Unknown] hydrocortisone 2.5 % topical cream with perineal applicator 1 applic OK QD-BID PRN itching #30 grams 01/16/23 [Rx Last Taken Unknown] mupirocin 2 % topical ointment 1 applic topical BID #15 grams 02/04/23 [Rx Last Taken Unknown] oxycodone-acetaminophen 5 mg-325 mg tablet (Percocet) 1 tab PO Q8H PRN pain 3 days #10 tabs 02/04/23 [Rx Last Taken Unknown] Allergy/AdvReac Type Severity Reaction Status Date / Time latex Allergy Itching Verified 02/08/23 17:51 naproxen Allergy Unknown Verified 02/08/23 17:51 Penicillins [PCN] Allergy Rash Verified 02/08/23 17:51 escitalopram [From Lexapro] AdvReac Intermediate Lightheaded Verified 02/08/23 17:51 sertraline [From Zoloft] AdvReac Intermediate Dizzy & Verified 02/08/23 17:51 Headache dicyclomine [From Bentyl] AdvReac Unknown Unknown Verified 02/08/23 17:51 hydrocodone [From Vicodin] AdvReac Other Verified 02/08/23 17:51 ketorolac [From Toradol] AdvReac Other Verified 02/08/23 17:51 Family History Grandmother Diabetes Other Family history of skin cancer High cholesterol Hypertension Surgical History History of surgery on arm History of surgery on lower extremity History of thyroidectomy History of total vaginal hysterectomy (TVH) (~03/22/22) Status post incision and drainage (~04/15/22) Social History Smoking Status: Current every day smoker tobacco type: cigarettes Tobacco: How many years used: 13 Electronic Cigarette Use: not used second hand exposure: No alcohol intake: current alcohol intake frequency: holidays/special occasions only substance use type: does not use caffeine: Yes what type of physical activity do you participate in: none seatbelt use: always do you feel safe at home: Yes additional social history: emmy [place] ED Constitutional Constitutional ED: Reports fever(s) and subjective; Denies chills Respiratory/Chest Respiratory/Chest: Denies cough or dyspnea Gastrointestinal Gastrointestinal: Reports abdominal pain and other Details: left groin mass ; Denies diarrhea, nausea or vomiting Genitourinary Genitourinary ED: Denies dysuria or hematuria Musculoskeletal Musculoskeletal: Reports back pain and other Integumentary Denies rash Neurologic Neurologic: Reports headache(s) and paresthesias; Denies weakness Hematologic/Lymphatic Hematologic/Lymphatic: Denies easy bleeding or easy bruising EXAM Physical Exam Const Vital Signs: 02/08/23 17:51 02/08/23 23:04 Temperature 97.5 F L Temperature Source Temporal Pulse Rate 95 81 Respiratory Rate 16 16 Blood Pressure 145/95 H 128/74 H Blood Pressure Mean 111 92 Pulse Ox 100 99 Positive well nourished and well developed General Appearance ED: well developed and NAD HEENT Reports moist mucous membranes Eyes PERRL and EOMs intact bilaterally Neck supple Chest Wall inspection of chest normal Resp normal respiratory effort and clear to auscultation bilaterally Cardio regular rate, regular rhythm and no murmurs GI normal to inspection, nondistended, normoactive bowel sounds GI Narrative: Mild chronic tenderness in the right lower quadrant, unchanged Narrative: Normal external genitalia Back/Spine no CVA tenderness Lumbar Spine / Lower Back: Negative for lumbar spinal tenderness Extremity normal to inspection General Extremety ED: Negative for edema or tenderness General Extremity: Negative for edema Neuro oriented x3 Sensorium / Orientation: alert Motor Exam: Negative for general weakness Psych mental status grossly normal Skin Skin Narrative: A chronic appearing wound that is noninfected nondraining to the left inguinal area. Not significantly changed from when I evaluated the patient 4 days ago. Patient has tenderness to palpation of the left inguinal area and left medial proximal thigh with no overlying skin changes MDM MDM MDM Narrative Medical decision making narrative: Patient evaluated for approximately 2 weeks of ongoing left inguinal pain that is rating down to her thigh. I actually evaluated this patient on Monday, 4 days ago for similar pain. From physical exam she does not have any significant difference. At that time we did not perform any lab work so decision is made to do blood work and imaging at this time. Differential includes renal colic, inguinal hernia, deep abscess not appreciated on physical exam as well as neuropathic pain such as lumbar radiculopathy or myalgia paresthetica. Given that she does not have any significant skin changes and said going on for 2 weeks have a low suspicion for shingles. CBC is unremarkable as well as her CMP. Her urinalysis is not consistent with infection. CT of the abdomen pelvis shows chronic incisional lung changes, mild unchanged splenomegaly, 5 cm right ovarian follicular cyst (patient is known about this) with no inguinal hernias appreciated. She does have redemonstrated bilateral lymphadenopathy of the inguinal region. This is appreciated on physical exam. Patient has outpatient follow-up for this lymphadenopathy with surgery/ultrasound. At this point there does not appear to be any acute medical/infectious/surgical abnormalities. I do question given that the pain radiates down her thigh if this is more of a neuropathic pain. However patient states she will not take prednisone because it causes her to swell and that she does not like the way gabapentin makes her feel. She does not want to take any NSAIDs that she is already on ketoprofen for her migraines and does not want to change that. She states she can only take Tylenol sparingly because she has a history of Howe. Given that she does not have a verifiable or acute cause of her pain and I did give her a prescription for oxycodone 4 days ago I do not feel comfortable giving her another opioid prescription. I feel that this is likely a bit more of a chronic issue that should be followed up either with her primary care doctor or spine. She is given referral for spine medicine. I did give her Lidoderm patch for pain. She verbalized agreement understanding with this plan. Counseled to use [id number] Lidoderm patches and alternate Tylenol and her ketoprofen. In addition patient does have normal vital signs. We also discussed that there could be an underlying rheumatologic issue. Patient states she saw a rheumatology a couple years ago but is willing to go back. Encouraged to make that appointment as well. Lab Data Attestation: I reviewed the patient's lab results. Labs: Laboratory Results - last 24 hr 02/08/23 02/08/23 20:00 20:30 WBC 5.6 RBC 4.74 Hgb 13.2 Hct 41.0 MCV 86.5 MCH 27.8 MCHC 32.2 RDW Std Deviation 40.7 RDW Coeff of Mikel 13.0 Plt Count 177 MPV 10.8 Immature Gran % (Auto) 0.400 Neut % (Auto) 51.2 Lymph % (Auto) 33.5 Ward % (Auto) 9.5 Eos % (Auto) 4.5 Baso % (Auto) 0.9 Absolute Neuts (auto) 2.9 Absolute Lymphs (auto) 1.87 Nucleated RBC % 0 Sodium 138 Potassium 3.8 Chloride 107 Carbon Dioxide 27.0 Anion Gap 4 L BUN 10 Creatinine 0.81 Estim Creat Clear Calc 90.75 Est GFR (MDRD) Af Amer 104 Est GFR (MDRD) Non-Af 86 BUN/Creatinine Ratio 12.4 Glucose 110 H Calcium 8.8 Total Bilirubin 0.10 L AST 12 L ALT 24 Alkaline Phosphatase 61 Total Protein 6.7 Albumin 3.5 Globulin 3.2 Albumin/Globulin Ratio 1.1 Urine Color Yellow Urine Clarity Clear Urine pH 6.0 Ur Specific [place] 1.020 Urine Protein Negative Urine Glucose (UA) Normal Urine Ketones Negative Urine Occult Blood Negative Urine Nitrite Negative Urine Bilirubin Negative Urine Urobilinogen Normal Ur Leukocyte Esterase Negative Urine RBC 0 SEEN Urine WBC 0 SEEN Ur Squamous Epith Cells 0-5 SEEN Urine Bacteria 0 SEEN Urine Mucus 0 SEEN Radiography Diagnostic Testing: Clinical Impression(s) from Imaging Studies Abdomen/Pelvis CT 02/08/23 19:52 IMPRESSION: 1. No acute process of the abdomen or pelvis 2. Mild splenomegaly unchanged 3. Redemonstration of subcentimeter bilateral inguinal lymphadenopathy. No visualized inguinal hernias. 4. No demonstrated free air or free fluid or bowel dilatation. No visualized colonic diverticula or acute inflammation. 5. Right ovarian follicular cyst has developed measuring 5.01 cm in diameter. Electronically Signed: Joon Tejada MD at 21:26 EDT Reading Location ID and State: [facility] / [place] , Service support , Discharge Plan Triage Chief Complaint: Abd Pain ED Provider: Loly Sierra Dx/Rx/DC Orders Clinical Impression: Lymphedema of both lower extremities, Left inguinal pain Instructions: Understanding Lumbar Radiculopathy, Lymphadenopathy Prescriptions: No Action hydroxyzine pamoate 50 mg capsule 50 mg PO TID PRN (Reason: anxiety) Qty: 20 0RF meclizine 25 mg tablet 25 mg PO BID PRN (Reason: dizziness) Qty: 30 1RF levothyroxine 137 mcg tablet 137 mcg PO DAILY Qty: 90 1RF ursodiol 300 mg capsule 300 mg PO BID Qty: 180 1RF hydrocortisone 2.5 % cream with perineal applicator 1 applic OK QD-BID PRN (Reason: itching) Qty: 30 2RF vitamin E mixed 400 unit capsule 800 unit PO .qd mupirocin 2 % ointment 1 applic topical BID Qty: 15 0RF oxycodone-acetaminophen [Percocet] 5-325 mg tablet 1 tab PO Q8H PRN (Reason: pain) 3 Days Qty: 10 0RF albuterol sulfate 2.5 mg /3 mL (0.083 %) solution for nebulization 2.5 mg inhalation Q6H PRN (Reason: shortness of breath or wheezing) Qty: 90 1RF ketoprofen 75 mg capsule 75 mg PO Q6H PRN (Reason: Migraine Symptoms) Qty: 100 0RF Rx Instructions: 1 cap PO at on set of headache max of 3 in 24 hours, max 20 per month amlodipine 5 mg tablet 5 mg PO DAILY Qty: 90 1RF prochlorperazine maleate [Compazine] 10 mg tablet 10 mg PO BID PRN (Reason: Migraine Symptoms) Qty: 30 1RF Primary Care Provider: Jose Alejandro London Referrals: Jose Alejandro London MD [Primary Care Provider] - Nima Pascual DO [Med Staff - Active Staff] - As Needed Activity Restrictions/Additional Instructions: The exact cause your pain is not clear. Does not appear to be any acute infection or surgical abnormality. I question if you could have of nerve pain that is going into your groin and down your leg. Typically would treat this with steroids and or anti-inflammatories bed as you cannot take these we are somewhat limited. Please follow-up with your primary care doctor to discuss further pain management. You can try [id number] 4% exercise Lidoderm patches. Please continue to follow-up with your outpatient ultrasound for your lymph nodes and with surgery as well. I would recommend that you follow-up with your pickling grader. I will give you information for a spine doctor in case this pain is actually coming from your back. Disposition Disposition: Home, Self Care Discharge Date/Time: 02/08/23 23:07
[2023-02-08] MEDS: Lidocaine 5% Patch 1 PATCH TOPICAL (22:58)
[2023-02-08 23:04] VITALS: BP 128/74; PULSE 81; RESP 16; O2SAT 99
== END 2023-02-08 23:07 | disposition home or self-care (01) ==
LOC: ED 19:00
PROVIDERS: Emergency Provider Emergency Medicine; PCP Internal Medicine; Visit Provider Emergency Medicine
DX: I89.0 Lymphedema, not elsewhere classified (principal); R10.32 Left lower quadrant pain; N83.01 Follicular cyst of right ovary; G43.909 Migraine, unspecified, not intractable, without status migrainosus; I10 Essential (primary) hypertension; M79.7 Fibromyalgia; E03.9 Hypothyroidism, unspecified; G89.29 Other chronic pain; F41.1 Generalized anxiety disorder; F17.210 Nicotine dependence, cigarettes, uncomplicated; Z79.890 Hormone replacement therapy; Z79.899 Other long term (current) drug therapy
CPT/HCPCS: 74177; 80053; 81001; 85025; 96360; 96361; 99284; J7030; Q9967

== ENCOUNTER 2023-02-14 06:43 | Day surgery (SDC) | payer MEDICAID, SELFPAY ==
[2023-02-14] VITALS (7 sets, daily range): BP systolic 102–121; BP diastolic 63–87; PULSE 76–103; RESP 16–18; TEMP 36.6–37.2; O2SAT 95–100; BMI 36.3
--- NOTE | 2023-02-14 07:11 | HP.PCM_ITS ---
History and Physical Date of Admission: 02/14/23 [facility] [address] [place] [address] OFFICE VISIT Date of Service: 11/18/22 MR#: [id number] Acct: [id number] Name: AUSTIN RIVERA Rep #: [id number] : 1985 Provider: Dr. Yusuf Apple DO Age/Sex: 37/F Location: [facility] [email or web address] Status: Signed Intake Vital Signs 09/02/2309:43 11/09/2315:37 Height 5 ft 6 in 5 ft 6 in Intake Visit Reasons: right wrist Chief Complaint: Right hand Allergies promethazine [From Phenergan] Allergy (Unknown, Verified 11/18/22 10:13) Unknownlatex Allergy (Verified 11/18/22 10:13) Itchingnaproxen Allergy (Verified 11/18/22 10:13) UnknownPenicillins [PCN] Allergy (Verified 11/18/22 10:13) Rashescitalopram [From Lexapro] Adverse Reaction (Intermediate, Verified 11/18/22 10:13) Lightheaded sertraline [From Zoloft] Adverse Reaction (Intermediate, Verified 11/18/22 10:13) Dizzy & Headachedicyclomine [From Bentyl] Adverse Reaction (Unknown, Verified 11/18/22 10:13) Unknownhydrocodone [From Vicodin] Adverse Reaction (Verified 11/18/22 10:13) Otherketorolac [From Toradol] Adverse Reaction (Verified 11/18/22 10:13) Other Medications vitamin E mixed 400 unit capsule 800 unit PO .qd supplement 04/12/22 [History Confirmed 11/18/22] amlodipine 5 mg tablet 5 mg PO DAILY bp #90 tabs 05/30/22 [Rx Confirmed 11/18/22] hydroxyzine pamoate 50 mg capsule 50 mg PO TID PRN anxiety #20 caps 05/30/22 [Rx Confirmed 11/18/22] meclizine 25 mg tablet 25 mg PO BID PRN dizziness #30 tabs 05/30/22 [Rx Confirmed 11/18/22] albuterol sulfate 2.5 mg/3 mL (0.083 %) solution for nebulization 2.5 mg (3 mL) inhalation Q6H PRN shortness of breath or wheezing #90 mL 06/27/22 [Rx Confirmed 11/18/22] cholecalciferol (vitamin D3) 1,250 mcg (50,000 unit) capsule 1,250 mcg PO QWEEK #14 caps 09/02/22 [Rx Confirmed 11/18/22] levothyroxine 137 mcg tablet 137 mcg PO DAILY synthroid #90 tabs 09/02/22 [Rx Confirmed 11/18/22] prochlorperazine maleate 10 mg tablet (Compazine) 10 mg PO BID PRN Migraine Symptoms #30 tabs 09/02/22 [Rx Confirmed 11/18/22] ursodiol 300 mg capsule 300 mg PO BID #180 caps 09/02/22 [Rx Confirmed 11/18/22] venlafaxine 37.5 mg capsule,extended release 24 hr (Effexor XR) 37.5 mg PO DAILY #60 caps 09/02/22 [Rx Confirmed 11/18/22] ondansetron 4 mg disintegrating tablet 4 mg PO Q8H PRN PRN Nausea #10 tabs 11/08/22 [Rx Confirmed 11/18/22] oxycodone-acetaminophen 5 mg-325 mg tablet (Percocet) 1 tab PO Q8H PRN pain 3 days #10 tabs 11/08/22 [Rx Confirmed 11/18/22] ketoprofen 75 mg capsule 75 mg PO Q6H PRN Migraine Symptoms #100 caps 11/14/22 [Rx Confirmed 11/18/22] PFSH Medical History Abdominal pain ADHD (attention deficit hyperactivity disorder), combined type Anxiety and depression Arthritis Back pain Bronchitis Cancer Cardiology follow-up encounter Cervical lymphadenopathy Cervical radiculopathy Chronic back pain Chronic pain Chronic RUQ pain Depression Easy bruising Ectopic cardiac beats Fatty liver Fibromyalgia NICOLÁS (generalized anxiety disorder) Almaz's thyroiditis Heartburn History of acne History of echocardiogram History of gestational diabetes History of pain when walking History of stress test Hypertension Hypocalcemia Injury of head and neck Left shoulder pain Left-sided low back pain with left-sided sciatica Localized swelling, mass and lump, neck Melanoma Migraine without aura and with status migrainosus, not intractable Morbid obesity MARCELINO (nonalcoholic steatohepatitis) Numbness and tingling of both upper extremities Numbness of both lower extremities Palpitations Post herpetic neuralgia Restless legs Right femoral fracture RUQ abdominal pain Syncope Thyroid disease Tinnitus Tobacco abuse Vertigo Surgical History History of surgery on arm History of thyroidectomy History of total vaginal hysterectomy (TVH) (~03/22/22) Status post incision and drainage (~04/15/22) Family History Grandmother DiabetesOther Family history of skin cancer High cholesterol Hypertension Social History Smoking Status: Current every day smoker tobacco type: cigarettes Tobacco: How many years used: 13 Electronic Cigarette Use: not used second hand exposure: No alcohol intake: current alcohol intake frequency: holidays/special occasions only substance use type: does not use caffeine: Yes what type of physical activity do you participate in: none seatbelt use: always do you feel safe at home: Yes additional social history: emmy CEBALLOS right wrist Details: Parts of this documentation were recorded by a scribe, this documentation accurately reflects the service provided and the decisions made by me, Dr. Yusuf Apple, DO 11/18/22 [id number]. AUSTIN RIVERA is a 37 year old F here today for f/u after [facility]. Pt. states that her pain and numbness is getting worse. She states that he has been using night bracing for the last 3 months which isnt helpful. She has also been using ice for the pain at times. Ortho Exam General General: Yes no acute distress Neurologic: Yes alert and Yes oriented x3 Psychologic: Yes reasonable and appropriate Right Wrist/Hand Skin/Wound: Yes CDI, No Swelling, No Ecchymosis, Yes nail intact and Yes capillary refill normal Right Wrist: Yes Tinel's and Phalen's; No Thenar Atrophy or Hypothenar Atrophy Left Wrist/Hand Skin/Wound: No Swelling and No Ecchymosis Head: Normocephalic Atraumatic Chest: symmetrical rise, non-labored breathing, no audible wheeze Abdomen: no guarding, non-rigid Supplemental Info 11/14/2022 EMG right upper extremity: Right median motor and sensory latencies are prolonged consistent with moderate carpal tunnel syndrome 02/23/2022 EMG left upper extremity: Left mild median sensory neuropathy consistent with carpal tunnel no evidence of cervical radiculopathy 07/24/2020 MRI cervical spine:Mild degenerative disc disease with reversal normal lordotic curvature possibly from muscular spasm. Coding Level of Care Code Off vis,est,level 3 Diagnoses Carpal tunnel syndrome of right wrist G56.01 Assessment and Plan Assessment and Plan (1) Carpal tunnel syndrome of right wrist: Plan Personally reviewed patients EMG and edcuated that she does have moderate carpal tunnel syndrome. Treatment options are continue with bracing or steroid inj ection, benign neglect nerve glide exercises or right CTR. Reviewed the pre- operative plans with the patient. Risks and benefits of the procedure were fully explained, including but not limited to incisional hypersensitivity pillar pain continued symptoms recurrence of his symptoms infection, neurovascular injury, continued pain, arthritis, stiffness, need for further surgery, re-injury, DVT, PE, general risks of anesthesia, and loss of limb or life. She also understands she will have 3 weeks of weight restrictions postoperatively and expected postoperative course was reviewed. the patient understands all the risks and does wish to proceed with written consent for right open carpal tunnel release. Follow up 2 weeks post op or sooner if pain, swelling, numbness or associated symptoms, or concerns develop. All questions answered. Patient in agreement of plan. Tentative surgery date November 29, 2022 instructed to discontinue all NSAIDs 1 week prior to surgery 11/18/22 1040 <Electronically signed by Yusuf Apple DO> Date Yusuf Apple DO Cosigner Signature: Date (if applicable) I have examined the patient and the H&P has been reviewed. There are no clinical changes since date of exam.
[2023-02-14] MEDS: Lactated Ringers 1,000 ML 15 ML IV (07:13)
[2023-02-14] MEDS: Clindamycin 900 MG/50 ML BAG 75 MG IV (07:30)
[2023-02-14] MEDS: Lidocaine 1% /Epi 1:100 (50ml) 50 ML VIAL (07:39)
--- NOTE | 2023-02-14 07:55 | OP.PCM_ITS ---
Operative Report Date of Procedure: 02/14/23 Preoperative diagnosis; right carpal tunnel syndrome Postoperative diagnosis; same Procedure: Right open carpal tunnel release Anesthesia: Local with MAC Tourniquet time; 8 minutes 250 mm Hg Complications: None Indication for procedure; This is a 37-year-old female with long-standing sy mptoms consistent with carpal tunnel syndrome the patient did have electrodiagnostic evidence of this and has failed conservative treatment. Risks benefits and alternatives were reviewed including risks of bleeding infection nerve artery tissue damage need for further surgery and continued pain and symptoms, hypersensitivity to scar and Pillar pain. Procedure; The patient was met in the preoperative holding area the operative extremity was identified by both patient and physician and was marked the patient was met by anesthesia and brought back to the operating room and transferred to the operating table in the supine position. Anesthesia was started. A well-padded tourniquet was placed on the operative upper extremity. The patient was prepped and draped in the usual sterile fashion. A timeout was called to ensure the proper patient procedure and extremity were being contemplated. 0.5 percent lidocaine with epinephrine was injected into the incisional area. An Esmarch was used to exsanguinate the extremity. The tourniquet was inflated to 250 mmHg. A midline incision was made with a 15 blade scalpel between the thenar and hypothenar eminence. This was carried down through the skin and subcutaneous tissue. Michelle retractors were then used, a deep blade scalpel was used to make a deep incision in the palmar aponeurosis. The michelle retractors were then placed deep to this and the transverse carpal ligament was identified a perforation was made with a scalpel and a Littler scissors were used to complete the release of the transverse carpal ligament distally under direct visualization with the tips facing ulnarly until the perivascular fat was reached. Then turning our attention proximally using a tension slide technique the proximal extent of the transverse carpal ligament was released . There was noted to be hourglass configuration to the median nerve and hypertrophy of the transverse carpal ligament without other findings. The wound was thoroughly irrigated and was closed with 4-0 nylon vertical mattress stitches. Dressing was applied in the form of xeroform 4 x 4, web roll and an dakotah wrap. Tourniquet was let down there is no intraoperative complications patient tolerated the procedure well and was transferred to the PACU. All counts were correct.
--- NOTE | 2023-02-14 07:56 | DCINST_ITS ---
Discharge Instructions Diet Discharge Diet: No restrictions Dressing / Incision Call your doctor if you observe: Shortness of breath and Chest pain Additional Dressing/Incision Instructions:: Ice and elevate operative extremity next 72 hours. Keep dressing on clean and dry for 48 hours then may remove and allow warm soapy water to rinse over incision but do not submerge until sutures are out. Then apply bandaid over incision and change daily. encourage finger range of motion. Not lift more than 1/2 pound. Minimize narcotic use only as needed and directed, may use OTC NSAID and Tylenol to supplement/substitute for pain control. Follow Up Care Please Follow Up With: Yusuf Apple DO When: 2 weeks Test Results: Test results from this visit will be discussed in further detail at your follow- up appointment, if applicable. Discharge Plan Admission Primary Reason for Your Visit: Right carpal tunnel release Attending Provider: Yusuf Apple Primary Care Provider: Jose Alejandro London Discharge Orders/Prescriptions Prescriptions: New oxycodone 5 mg tablet 2.5 - 5 mg PO Q4H PRN (Reason: pain) 5 Days Qty: 10 0RF Continued hydroxyzine pamoate 50 mg capsule 50 mg PO TID PRN (Reason: anxiety) Qty: 20 0RF meclizine 25 mg tablet 25 mg PO BID PRN (Reason: dizziness) Qty: 30 1RF ursodiol 300 mg capsule 300 mg PO BID Qty: 180 1RF hydrocortisone 2.5 % cream with perineal applicator 1 applic MD QD-BID PRN (Reason: itching) Qty: 30 2RF vitamin E mixed 400 unit capsule 800 unit PO .qd mupirocin 2 % ointment 1 applic topical BID Qty: 15 0RF albuterol sulfate 2.5 mg /3 mL (0.083 %) solution for nebulization 2.5 mg inhalation Q6H PRN (Reason: shortness of breath or wheezing) Qty: 90 1RF ketoprofen 75 mg capsule 75 mg PO Q6H PRN (Reason: Migraine Symptoms) Qty: 100 0RF Rx Instructions: 1 cap PO at on set of headache max of 3 in 24 hours, max 20 per month amlodipine 5 mg tablet 5 mg PO DAILY Qty: 90 1RF prochlorperazine maleate [Compazine] 10 mg tablet 10 mg PO BID PRN (Reason: Migraine Symptoms) Qty: 30 1RF levothyroxine 137 mcg tablet 137 mcg PO DAILY Qty: 90 1RF No Action oxycodone-acetaminophen [Percocet] 5-325 mg tablet 1 tab PO Q8H PRN (Reason: pain) 3 Days Qty: 10 0RF Referrals / Follow Up: Jose Alejandro London MD [Primary Care Provider] - Disposition Disposition (needs filled in before D/C Order can be placed): Home, Self Care
== END 2023-02-14 09:01 | disposition home or self-care (01) ==
LOC: SDC 06:44 → AC 06:45
PROVIDERS: PCP Internal Medicine; Referring Provider Orthopaedic Surgery; Visit Provider Orthopaedic Surgery
PROC: (CPT 64721; principal; 2023-02-14 07:15)
DX: G56.01 Carpal tunnel syndrome, right upper limb; E66.01 Morbid (severe) obesity due to excess calories; E11.9 Type 2 diabetes mellitus without complications; I10 Essential (primary) hypertension; F17.210 Nicotine dependence, cigarettes, uncomplicated; E07.9 Disorder of thyroid, unspecified; Z79.890 Hormone replacement therapy; Z79.899 Other long term (current) drug therapy
CPT/HCPCS: 64721; 01810; J7120; J2405

== ENCOUNTER → 2023-03-03 | Outpatient (CLI) | payer MEDICAID, SELFPAY ==
[2023-03-03 15:49] LABS: Thyroid Stim Hormone (TSH) 1.24 uIU/mL (0.358-3.74)
== END | disposition home or self-care (01) ==
LOC: LAB 13:20
PROVIDERS: PCP Internal Medicine; Referring Provider Internal Medicine; Visit Provider Internal Medicine
DX: E06.3 Autoimmune thyroiditis (principal)
CPT/HCPCS: 36415; 84443

== ENCOUNTER → 2023-03-09 | Outpatient (CLI) | payer MEDICAID, SELFPAY ==
--- NOTE | 2023-03-09 11:04 | US_ITS ---
INDICATION: inguinal left lymphadenopathy/not hernia EXAMINATION: Left inguinal ultrasound HISTORY: Left inguinal lymph node COMPARISON: CT dated February 08, 2023 TECHNIQUE: Routine and color duplex imaging with spectral analysis. FINDINGS: No discrete solid or cystic lesions are visualized. There are nonpathologically enlarged lymph nodes that are reniform in shape and maintain their fatty hilum. US/Ext Non Vasc Limited/Soft Tiss IMPRESSION: Within normal limits appearing lymph nodes. Electronically Signed: Milady Gallegos MD at 12:00 EDT ,
== END | disposition home or self-care (01) ==
LOC: OPUS 11:03
PROVIDERS: PCP Internal Medicine; Referring Provider Obstetrics & Gynecology; Visit Provider Obstetrics & Gynecology
DX: S31.109A Unspecified open wound of abdominal wall, unspecified quadrant without penetration into peritoneal cavity, initial encounter (principal); R59.0 Localized enlarged lymph nodes; X58.XXXA Exposure to other specified factors, initial encounter
CPT/HCPCS: 76882

== ENCOUNTER 2023-03-21 12:54 | Outpatient (RCR) | payer MEDICAID, SELFPAY ==
--- NOTE | 2023-03-21 16:30 | HP.OTEVAL_ITS ---
Patient's Visit Information Visit Information Visit Information: AUSTIN RIVERA is a 37 year old F, referred to Occupational Therapy by ADRI Schwab, with a diagnosis of CTS. Date of Evaluation: 03/21/23 Occupational Therapist: Pamela Xiong, FABIANO/Alysia, CHT Subjective Subjective: This 37 year old female was seen for OT eval with dx of right CTS. 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 pt states she had sx on 02/14/23 pt having difficulty with pain scar tissue limiting her ind. with ADls and IADLs Pain right hand: Current Pain Intensity: 4 Pain Intensity Range: 7 ROM Wrist: right 60/65 left 60/60 Strength [employer]: right 10# left 35# Lateral Pinch: right 10# left 12# Tripod Pinch: right 8# left 12# Strength Comments: pt tender at incision Sensation Sensation Comments: pt states tingling at random times Quick DASH-Disab of Arm,Shoulder& Hand Quick DASH Score: [id number] Goals Goal:100% adherence to protocol: Yes Comment: CTR guidelines Goal:Daily scar massage when approriate: Yes Goal:ROM equal to unaffected hand: Yes Goal:[employer]/Pinch strength at least 75% of unaffected hand: Yes Goal:No pain with affected hand use: Yes Goal:Full use of affected hand in daily activities including work: Yes Goal:Decrease scar hypersensitivity: Yes Rehabilitation General Assessment: pt arrives s/p 5 weeks from right CTR with pain limited ROM and weakness increasing need of assistance with ADls and IADLS. pt would benefit from skilled OT services 2x week for 6 weeks to return pt to her PLOF. Today therapist ed. pt on scar mtg, use of elastomer and still using wrist brace at night to decrease pain- pt demo understanding and agree to POC,. Rehabilitation Potential: Good Anticipated Interventions Anticipated Interventions: A/AAROM/PROM, Strengthening, Scar Care, Triggerpoint Release, Desensitization, Sensory Retraining, Modalities, Orthoses, Joint Protection/Energy Conservation, Education re assistive Equipment, Education re Diagnosis and Home Program Visit Plan Frequency: 2-3x /Week Duration: 4 Weeks TEXT: Thank you for the opportunity to evaluate your patient. For Medicare and Medicare HMO plans, please review the plan of care and approve it. It will need to be FAXED BACK to us at [phone] for Medicare purposes. Please let me know if there are questions or concerns regarding this plan of care. Physician Signature: Date:
--- NOTE | 2023-03-31 07:47 | HP.OT.NRP ---
Patient Information Patient Information: AUSTIN RIVERA was seen in my office for initial evaluation on 03/21/23. The following Plan of Care was established for this patient: POC Established Initial Frequency: 2-3x /Week Initial Duration: 4 Weeks Anticipated Interventions Anticipated Interventions: A/AAROM/PROM, Strengthening, Scar Care, Triggerpoint Release, Desensitization, Sensory Retraining, Modalities, Orthoses, Joint Protection/Energy Conservation, Education re assistive Equipment, Education re Diagnosis and Home Program Last Seen Last Seen: This patient was last seen in our office 03/21/23. Pertinent comments regarding their Occupational therapy will appear below: pt was seen for OT eval only for CTS. pt called and notified clinic she was going to be seen by PT. and wanted D/c from OT. pt now d/c at this time from OT per pts request. At this point I will be discontinuing this patient from occupational therapy. I would be happy to see this patient again in the future if found appropriate by the physician. Thank you! Pamela Xiong, OTR/L, CHT
== END 2023-03-21 19:00 | disposition home or self-care (01) ==
LOC: OT 12:54
PROVIDERS: PCP Internal Medicine
DX: Z98.890 Other specified postprocedural states (principal)
CPT/HCPCS: 97166; 97530

== ENCOUNTER → 2023-03-28 | Outpatient (CLI) | payer MEDICAID, SELFPAY ==
[2023-03-28 15:39] LABS: ALB/GLOB Ratio 1.1 RATIO (0.9-2.4); AST(SGOT) 12 U/L (15-37); Alanine Aminotransfer ALT/SGPT 23 U/L (13-56); Albumin, Serum 3.6 g/dL (3.2-5.0); Alkaline Phosphatase 65 U/L (45-117); Anion Gap 1 (5-15); BUN 9 mg/dL (7-18); BUN/Creat Ratio 10.7 RATIO (10-20); Bilirubin, Direct 0.11 mg/dL (0.00-0.30); Chloride 105 mmol/L (98-107); Creatinine, Serum 0.84 mg/dL (0.55-1.02); EST Glomerular Filtration Rate 81 mL/min (>60); Est Glom Filt Rate - Afr Amer 98 mL/min (>60); Globulin 3.3 g/dL (2.2-4.2); Glucose 109 mg/dL (74-106); Potassium 3.9 mmol/L (3.5-5.1); Protein, Total 6.9 g/dL (6.4-8.2); Sodium Level 137 mmol/L (136-145)
== END | disposition home or self-care (01) ==
LOC: LAB 13:23
PROVIDERS: PCP Internal Medicine; Referring Provider Internal Medicine Gastroenterology; Visit Provider Internal Medicine Gastroenterology
DX: K76.0 Fatty (change of) liver, not elsewhere classified (principal)
CPT/HCPCS: 36415; 80053; 82248

== ENCOUNTER → 2023-04-06 | Outpatient (CLI) | payer MEDICAID, SELFPAY ==
[2023-04-06 15:09] LABS: Estradiol 29.2 pg/mL; Follicle Stimulating Hormone 4.7 mIU/mL; T4 Free Direct 1.15 ng/dL (0.76-1.46)
[2023-04-12 04:07] LABS: 17-Hydroxyprogesterone 17 ng/dL (.)
[2023-04-12 10:09] LABS: DHEA Sulfate 95.1 ug/dL (57.3-279.2); Testosterone Free 0.4 pg/mL (0.0-4.2)
== END | disposition home or self-care (01) ==
LOC: PAVLAB 14:19
PROVIDERS: PCP Internal Medicine; Referring Provider Obstetrics & Gynecology; Visit Provider Obstetrics & Gynecology
DX: N95.1 Menopausal and female climacteric states (principal)
CPT/HCPCS: 36415; 82627; 82670; 83001; 83498; 84402; 84439; 82626

== ENCOUNTER → 2023-04-11 | Outpatient (CLI) | payer MEDICAID, SELFPAY ==
--- NOTE | 2023-04-11 14:30 | US_ITS ---
STUDY: ULTRASOUND BREAST - RIGHT REASON FOR EXAM: Female, 37 years old. Retroareolar pain TECHNIQUE: Axial and longitudinal images of the RIGHT breast were performed with a high resolution ultrasound transducer. # OF IMAGES: 24 COMPARISON: None. FINDINGS: RIGHT Breast: Focused sonographic evaluation of the retroareolar region of the right breast shows normal dense fibroglandular tissue. There is no suspicious shadowing solid lesion, architectural distortion, or clustered shadowing calcifications. US/Breast Limited Unilateral IMPRESSION: No suspicious sonographic findings ASSESSMENT CATEGORY: BIRADS Category 1: Negative. A letter regarding these results will be sent to the patient by the facility within 30 days. Electronically Signed: Homero Salas MD at 9:56 EST ,
--- NOTE | 2023-04-11 14:30 | BI_ITS ---
MAMMOGRAPHY - BILATERAL DIAGNOSTIC REASON FOR EXAM: Female, 37 years old. Right breast pain PERTINENT HISTORY: Non-contributory. TECHNIQUE: Digital examination. Mediolateral oblique (MLO) and craniocaudad (CC) views of both breasts were obtained. CAD: CAD was performed on this study. COMPARISON: No comparison mammograms available at this time. If any prior films become available, an addendum to this report can be generated. FINDINGS: Breast Composition: There are scattered areas of fibroglandular density. There are no dominant masses or suspicious calcifications. No other significant abnormalities are identified. However, because the patient complains of retroareolar right breast pain, further evaluation of this area with ultrasound is recommended BI/DIAG MAMM W/CAD, BILAT IMPRESSION: Further ultrasonographic evaluation recommended, as described above. Recall Side: Right Breast ASSESSMENT CATEGORY: BIRADS Category 0: Incomplete. Need additional imaging evaluation. A letter regarding these results will be sent to the patient by the facility within 30 days. FOLLOW UP RECOMMENDATION: Ultrasound Recommended. (I) Approximately 10% of breast cancers are not detected by mammography. A normal mammogram should not delay biopsy of a clinically suspicious abnormality. Electronically Signed: Homero Salas MD at 15:21 EST ,
== END | disposition home or self-care (01) ==
LOC: OPBI 14:29
PROVIDERS: PCP Internal Medicine; Referring Provider Obstetrics & Gynecology; Visit Provider Obstetrics & Gynecology
DX: N64.4 Mastodynia (principal)
CPT/HCPCS: 77062; 76642; 77066; G0279

== ENCOUNTER 2023-04-17 13:06 | Emergency (ER) | payer MEDICAID, SELFPAY ==
[2023-04-17 13:09] VITALS: BP 145/94; PULSE 107; RESP 18; TEMP 35.5; O2SAT 100; BMI 37.8
--- NOTE | 2023-04-17 14:27 | VDLE_ITS ---
Reason For Study: Bilateral leg pain RIGHT LEFT GSV is normal. GSV is normal. CFV is compressible, spontaneous, phasic, CFV is compressible, spontaneous, phasic, competent and demonstrates normal competent, and demonstrates normal augmentation. augmentation. FV is compressible, spontaneous, phasic, FV is compressible, spontaneous, phasic, competent and demonstrates normal competent and demonstrates normal augmentation. augmentation. POP V is compressible, spontaneous, phasic, POP V is compressible, spontaneous, phasic, competent and demonstrates normal competent and demonstrates normal augmentation. augmentation. T/P Trunk is compressible. T/P Trunk is compressible. PTV is compressible. PTV is compressible. RT PerV is compressible. LT PerV is compressible. Procedure This is a venous duplex using B-mode, color flow and spectral Doppler. Exam performed portable in ED. A preliminary report was called and/or faxed to Dr. Melgar. VL/Venous Duplex US - Hoang Extrem Interpretation Summary No evidence for acute deep venous thrombosis bilateral lower extremities with p atent and compressible bilateral great saphenous veins. Ordering Physician: Greg Melgar Referring Physician: Jose Alejandro London Performed By: Angie Solomon RVT
--- NOTE | 2023-04-17 14:27 | RAD_ITS ---
STUDY: X-RAY CHEST REASON FOR EXAM: Female, 37 years old. Cough. TECHNIQUE: Frontal and lateral views of the chest. COMPARISON: August 17, 2022. FINDINGS: The lungs are clear and expanded. Stable pleural tenting at the right hemidiaphragm. Normal size heart. Normal mediastinum and tho. Normal visualized pulmonary arteries. Normal visualized aortic arch and descending thoracic aorta. Normal visualized thoracic spine. Normal visualized ribs, clavicles, and shoulders. No abnormality of the visualized soft tissue structures of the upper abdomen. RAD/Chest PA and Lateral IMPRESSION: No interval change. Normal chest. Electronically Signed: Wilman Crooks MD at 14:53 EST ,
--- NOTE | 2023-04-17 16:05 | ED.VIS.LOWEX ---
HPI History of Present Illness HPI Narrative: Patient presents with pain and swelling to both lower legs but worse on the right. Patient states this has been getting worse over the last 3 to 4 days. Patient denies any trauma or injury. Patient states she does a lot of standing. Patient states she knows she has some varicose veins in her legs. Patient is concerned that this could be from a DVT. Patient also admits to some pain in her chest that is worse with coughing. Patient admits to some nausea but denies any vomiting. Chief Complaint: Lower Extremity Injury Informant: patient Onset/Context/Timing Onset: Days Context: Gradual Onset Timing: Continuous Quality of Pain: Aching, Burning and Throbbing Location: Bilateral lower legs, worse on the right Worsened by: Standing Relieved by: Rest Associated Symptoms Associated Symptoms: Negative for Parasthesia, Weakness or Loss of Funtion PFSH PFS Medical History Abdominal pain ADHD (attention deficit hyperactivity disorder), combined type Anxiety and depression Arthritis Back pain Bronchitis Cancer Cardiology follow-up encounter Cervical lymphadenopathy Cervical radiculopathy Chronic back pain Chronic pain Chronic RUQ pain Contact with or exposure to other viral diseases Depression Dermatitis Easy bruising Ectopic cardiac beats Fatty liver Fibromyalgia NICOLÁS (generalized anxiety disorder) Almaz's thyroiditis Heartburn History of acne History of echocardiogram History of gestational diabetes History of pain when walking History of stress test History of ulceration Hypertension Hypocalcemia Injury of head and neck Left shoulder pain Left-sided low back pain with left-sided sciatica Leg cramps Localized swelling, mass and lump, neck Melanoma Migraine without aura and with status migrainosus, not intractable Morbid obesity MARCELINO (nonalcoholic steatohepatitis) Numbness and tingling of both upper extremities Numbness of both lower extremities Palpitations PONV (postoperative nausea and vomiting) Post herpetic neuralgia Restless legs Right femoral fracture RUQ abdominal pain Syncope Thyroid disease Tinnitus Tobacco abuse Vertigo Home Medications vitamin E mixed 400 unit capsule 800 unit PO .qd supplement 04/12/22 [History Last Taken Unknown] hydroxyzine pamoate 50 mg capsule 50 mg PO TID PRN anxiety #20 caps 05/30/22 [Rx Last Taken Unknown] meclizine 25 mg tablet 25 mg PO BID PRN dizziness #30 tabs 05/30/22 [Rx Last Taken Unknown] albuterol sulfate 2.5 mg/3 mL (0.083 %) solution for nebulization 2.5 mg (3 mL) inhalation Q6H PRN shortness of breath or wheezing #90 mL 06/27/22 [Rx Last Taken Unknown] ketoprofen 75 mg capsule 75 mg PO Q6H PRN Migraine Symptoms #100 caps 11/14/22 [Rx Last Taken Unknown] amlodipine 5 mg tablet 5 mg PO DAILY bp #90 tabs 12/15/22 [Rx Last Taken 02/14/23] hydrocortisone 2.5 % topical cream with perineal applicator 1 applic [place] QD-BID PRN itching #30 grams 01/16/23 [Rx Last Taken Unknown] mupirocin 2 % topical ointment 1 applic topical BID #15 grams 02/04/23 [Rx Last Taken Unknown] levothyroxine 137 mcg tablet 137 mcg PO DAILY synthroid #90 tabs 02/13/23 [Rx Last Taken 02/14/23] relugolix 40 mg-estradiol 1 mg-norethindrone acetate 0.5 mg tablet (Myfembree) 1 tab PO DAILY #30 tabs 02/14/23 [Rx Last Taken Unknown] prochlorperazine maleate 10 mg tablet (Compazine) 10 mg PO BID PRN Migraine Symptoms #30 tabs 02/22/23 [Rx Last Taken Unknown] ursodiol 300 mg capsule 300 mg PO BID #180 caps 02/22/23 [Rx Last Taken Unknown] azithromycin 250 mg tablet 250 mg PO QDAY #12 tabs 03/07/23 [Rx Last Taken Unknown] prednisone 10 mg tablet 10 mg PO DIRECTED #30 tabs 03/07/23 [Rx Last Taken Unknown] colestipol 1 gram tablet 1 g PO BID #60 tabs 04/10/23 [Rx Last Taken Unknown] Allergy/AdvReac Type Severity Reaction Status Date / Time latex Allergy Itching Verified 04/17/23 13:08 naproxen Allergy Unknown Verified 04/17/23 13:08 Penicillins [PCN] Allergy Rash Verified 04/17/23 13:08 escitalopram [From Lexapro] AdvReac Intermediate Lightheaded Verified 04/17/23 13:08 sertraline [From Zoloft] AdvReac Intermediate Dizzy & Verified 04/17/23 13:08 Headache dicyclomine [From Bentyl] AdvReac Unknown Unknown Verified 04/17/23 13:08 hydrocodone [From Vicodin] AdvReac Other Verified 04/17/23 13:08 ketorolac [From Toradol] AdvReac Other Verified 04/17/23 13:08 Family History Grandmother Diabetes Other Family history of skin cancer High cholesterol Hypertension Surgical History History of surgery on arm History of surgery on lower extremity History of thyroidectomy History of total vaginal hysterectomy (TVH) (~03/22/22) Status post incision and drainage (~04/15/22) Social History Smoking Status: Current every day smoker tobacco type: cigarettes Tobacco: How many years used: 13 Electronic Cigarette Use: not used second hand exposure: No alcohol intake: current alcohol intake frequency: holidays/special occasions only substance use type: does not use caffeine: Yes what type of physical activity do you participate in: none seatbelt use: always do you feel safe at home: Yes additional social history: emmy [facility] ED Constitutional Constitutional ED: Denies chills or fever(s) Eyes Eyes: Denies blurry vision or change in vision ENT ENT ED: Denies rhinorrhea or sore throat Cardiovascular Cardiovascular: Reports chest pain; Denies palpitations Respiratory/Chest Respiratory/Chest: Reports cough; Denies dyspnea Gastrointestinal Gastrointestinal: Reports nausea; Denies vomiting Genitourinary Genitourinary ED: Denies dysuria or hematuria Musculoskeletal Musculoskeletal: Denies back pain or neck pain Integumentary Denies abscess or rash Neurologic Neurologic: Reports headache(s); Denies weakness Allergic/Immunologic Allergic/Immunologic ED: Denies mouth swelling or urticaria EXAM Physical Exam Const Vital Signs: 04/17/23 13:09 04/17/23 16:04 Temperature 95.9 F L Temperature Source Temporal Pulse Rate 107 H Respiratory Rate 18 Respiratory Effort Short of Breath Blood Pressure 145/94 H Blood Pressure Mean 111 Pulse Ox 100 Oxygen Delivery Method Room Air Positive well nourished, well developed and obese General Appearance ED: well developed and NAD Nutritional Appearance: obese HEENT Reports moist mucous membranes Neck full ROM Chest Wall Chest Narrative: There is mild tenderness over the lower ribs bilaterally. There is no bony crepitance or step-off noted. Resp normal respiratory effort and clear to auscultation bilaterally Cardio regular rate and regular rhythm GI non-tender and non-distended Palpation: soft Extremity Extremity Narrative: Over the calves bilaterally, worse on the right. There is also some edema that is worse on the right. There are varicose veins noted. Pedal pulses are equal bilaterally. Strength is 5/5 bilaterally in the lower extremities. There is no pain with dorsiflexion of the ankles bilaterally. There is some mild pain with compression of the calf on the right. Sensation was intact to light touch bilaterally in the lower extremities. Neuro oriented x3, CN's II-XII intact bilaterally, moves all extremities and no sensory deficits noted Sensorium / Orientation: alert Motor Exam: strength 5/5 throughout Psych mental status grossly normal MDM MDM MDM Narrative Medical decision making narrative: Differential diagnosis includes DVT, muscle strain, pneumonia, and intercostal strain. PA and lateral chest x-ray will be obtained to assess for pneumonia and pneumothorax. Venous duplex of the lower extremities will be obtained to assess for DVT. Radiography Diagnostic Testing: Clinical Impression(s) from Imaging Studies Chest X-Ray 04/17/23 14:27 IMPRESSION: No interval change. Normal chest. Electronically Signed: Wilman Crooks MD at 14:53 EST , Venous Doppler Study 04/17/23 14:27 Interpretation Summary No evidence for acute deep venous thrombosis bilateral lower extremities with patent and compressible bilateral great saphenous veins. Ordering Physician: Greg Melgar Referring Physician: Jose Alejandro London Performed By: Angie Solomon RVT and lateral chest x-ray was obtained. There are 2 views. On my independent interpretation, lung still are clear. There is normal cardiac silhouette. Bony thorax is normal. There is no acute process noted. Radiologist also interpreted the x-ray and agrees. Venous duplex of the lower extremities was obtained. There is no evidence of DVT. Treatment and Re-Evaluation Narrative: Patient was advised of her findings. Patient was advised that this most likely is from her varicose veins. Patient was instructed to keep her legs elevated. Patient was given a referral for vascular surgery. Patient was also instructed to follow-up with her primary care physician in 5 to 7 days. Patient understood and was agreeable with the plan. All questions were answered. Discharge Plan Triage Chief Complaint: Lower Extremity Injury Other Complaint: Chest Other ED Provider: Greg Mlegar Dx/Rx/DC Orders Clinical Impression: Right calf pain, Varicose vein of leg Instructions: ED Pain, Acute, Uncertain Cause Prescriptions: No Action hydroxyzine pamoate 50 mg capsule 50 mg PO TID PRN (Reason: anxiety) Qty: 20 0RF meclizine 25 mg tablet 25 mg PO BID PRN (Reason: dizziness) Qty: 30 1RF hydrocortisone 2.5 % cream with perineal applicator 1 applic [place] QD-BID PRN (Reason: itching) Qty: 30 2RF Myfembree 40-1-0.5 mg tablet 1 tab PO DAILY Qty: 30 12RF prednisone 10 mg tablet 10 mg PO DIRECTED Qty: 30 0RF Rx Instructions: 4 tablets daily x3 days, then 3 tabs daily x3 days, then 2 tabs daily x3 days, then 1 tablet daily x3 days azithromycin 250 mg tablet 250 mg PO QDAY Qty: 12 0RF Rx Instructions: 2 tablets today, then 1 tablet daily on days 2 through 11 vitamin E mixed 400 unit capsule 800 unit PO .qd mupirocin 2 % ointment 1 applic topical BID Qty: 15 0RF albuterol sulfate 2.5 mg /3 mL (0.083 %) solution for nebulization 2.5 mg inhalation Q6H PRN (Reason: shortness of breath or wheezing) Qty: 90 1RF ketoprofen 75 mg capsule 75 mg PO Q6H PRN (Reason: Migraine Symptoms) Qty: 100 0RF Rx Instructions: 1 cap PO at on set of headache max of 3 in 24 hours, max 20 per month amlodipine 5 mg tablet 5 mg PO DAILY Qty: 90 1RF levothyroxine 137 mcg tablet 137 mcg PO DAILY Qty: 90 1RF prochlorperazine maleate [Compazine] 10 mg tablet 10 mg PO BID PRN (Reason: Migraine Symptoms) Qty: 30 1RF ursodiol 300 mg capsule 300 mg PO BID Qty: 180 1RF colestipol 1 gram tablet 1 g PO BID Qty: 60 2RF Primary Care Provider: Jose Alejandro London Referrals: Jose Alejandro London MD [Primary Care Provider] - 5-7 Days Greg Enrique MD [Med Staff - Active Staff] - 5-7 Days Disposition Disposition: Home, Self Care Discharge Date/Time: 04/17/23 16:34
== END 2023-04-17 16:34 | disposition home or self-care (01) ==
PROVIDERS: Emergency Provider Emergency Medicine; PCP Internal Medicine; Visit Provider Emergency Medicine
DX: I83.811 Varicose veins of right lower extremity with pain (principal); M79.661 Pain in right lower leg; M54.9 Dorsalgia, unspecified; R60.0 Localized edema; G89.29 Other chronic pain; I10 Essential (primary) hypertension; R11.0 Nausea; M79.662 Pain in left lower leg; R07.9 Chest pain, unspecified; R05.9 Cough, unspecified; F17.210 Nicotine dependence, cigarettes, uncomplicated; Z79.890 Hormone replacement therapy; Z79.899 Other long term (current) drug therapy
CPT/HCPCS: 71046; 93970; 99283

== ENCOUNTER → 2023-05-03 | Outpatient (CLI) | payer MEDICAID, SELFPAY ==
[2023-05-03 11:35] LABS: Absolute Lymphocyte Count 1.14 X10^3/uL (0.83-4.51); Absolute Neutrophil Count 3.1 X10^3/uL (2.0-7.7); Basophil# 0.03 X10^3/uL; Basophil% 0.6 % (0-1); Eosinophil# 0.18 X10^3/uL; Eosinophils% 3.8 % (0-5); Hematocrit 44.1 % (37-47); Hemoglobin 14.1 g/dL (12.0-15.0); Lymphocyte # 1.14 X10^3/ul (0.83-4.51); Lymphocyte % 23.9 % (19-41); Mean Corpuscular Hgb 27.6 pg (27.0-32.0); Mean Corpuscular Volume 86.3 fL (81-99); Mean Platelet Vol. 11.4 fl (6.2-12.0); Monocyte# 0.26 X10^3/uL; Monocyte% 5.5 % (0-10); NRBC Flagged by Analyzer 0 % (0-5); Neutrophil # 3.14 X10^3/uL (2.7-7.7); Neutrophil % 65.8 % (47-70); Platelet Count 180 K/mm3 (150-450); RBC Distribution Width CV 13.1 % (11.6-14.6); RBC Distribution Width SD 40.8 fl (35.1-43.9); Red Blood Count 5.11 M/mm3 (4.2-5.4); White Blood Count 4.8 K/mm3 (4.4-11.0)
[2023-05-03 11:51] LABS: Vitamin D,25 Hydroxy 22.6 ng/mL
[2023-05-03 11:52] LABS: Erythrocyte Sedimentation Rate 2 mm/hr (0-30)
[2023-05-03 11:57] LABS: Prothrombin Time (Protime)PT. 13.2 SECONDS (11.7-14.9)
[2023-05-03 12:22] LABS: ALB/GLOB Ratio 1.1 RATIO (0.9-2.4); AST(SGOT) 8 U/L (15-37); Alanine Aminotransfer ALT/SGPT 20 U/L (13-56); Albumin, Serum 3.6 g/dL (3.2-5.0); Alkaline Phosphatase 65 U/L (45-117); Anion Gap 6 (5-15); BUN 9 mg/dL (7-18); CRP < 2.90 mg/L (0.0-3.0); Calcium,Total 8.9 mg/dL (8.5-10.1); Chloride 107 mmol/L (98-107); EST Glomerular Filtration Rate 75 mL/min (>60); Est Glom Filt Rate - Afr Amer 91 mL/min (>60); Globulin 3.4 g/dL (2.2-4.2); Glucose 159 mg/dL (74-106); LDH 168 U/L (84-246); Potassium 3.6 mmol/L (3.5-5.1); Sodium Level 137 mmol/L (136-145)
[2023-05-04 04:07] LABS: AFP, Tumor Marker 2.2 ng/mL (0.0-6.4)
[2023-05-04 12:09] LABS: ANTINUCLEAR ANTIBODIES DIRECT Negative (Negative)
== END | disposition home or self-care (01) ==
LOC: LAB 10:33
PROVIDERS: PCP Internal Medicine; Referring Provider Internal Medicine Gastroenterology; Visit Provider Internal Medicine Gastroenterology
DX: K76.0 Fatty (change of) liver, not elsewhere classified (principal)
CPT/HCPCS: 36415; 80053; 82105; 82140; 82306; 83516; 83615; 85025; 85610; 85652; 86038; 86140; 86225; 86235

== ENCOUNTER 2023-05-04 12:18 | Emergency (ER) | payer MEDICAID, SELFPAY ==
[2023-05-04 12:19] VITALS: BP 126/113; PULSE 95; RESP 14; TEMP 36.8; O2SAT 100; BMI 37.5
[2023-05-04 12:50] VITALS: BP 117/77; PULSE 71; RESP 16
--- NOTE | 2023-05-04 13:04 | EDS_ITS ---
HPI History of Present Illness Chief Complaint: Eye Problem Informant: patient Onset/Context/Timing Location: Right Eye Onset: Days Context: Gradual Onset Timing: Continuous Current Severity: Mild Associated Symptoms Associated Symptoms - Eyes: Redness; Negative for Burning, Crusting, Drainage, Eyelid swelling, Matting or Photophobia History of injury: No Visual correction: Glasses Narrative Narrative: 38-year-old female is supposed to wear glasses. No contacts. 3 days ago noticed redness to the sclera of her right eye. Saw her customer greeter at [facility] told her it was a subconjunctival hemorrhage. And she was told to be reevaluated. She is on no blood thinners. Prior similar symptoms: No Recent Illness/Hospitalization: No PFSH PFSH Medical History Abdominal pain ADHD (attention deficit hyperactivity disorder), combined type Anxiety and depression Arthritis Back pain Bronchitis Cancer Cardiology follow-up encounter Cervical lymphadenopathy Cervical radiculopathy Chronic back pain Chronic pain Chronic RUQ pain Contact with or exposure to other viral diseases Depression Dermatitis Easy bruising Ectopic cardiac beats Fatty liver Fibromyalgia NICOLÁS (generalized anxiety disorder) Almaz's thyroiditis Heartburn History of acne History of echocardiogram History of gestational diabetes History of pain when walking History of stress test History of ulceration Hypertension Hypocalcemia Injury of head and neck Left shoulder pain Left-sided low back pain with left-sided sciatica Leg cramps Localized swelling, mass and lump, neck Melanoma Migraine without aura and with status migrainosus, not intractable Morbid obesity MARCELINO (nonalcoholic steatohepatitis) Numbness and tingling of both upper extremities Numbness of both lower extremities Palpitations PONV (postoperative nausea and vomiting) Post herpetic neuralgia Restless legs Right femoral fracture RUQ abdominal pain Syncope Thyroid disease Tinnitus Tobacco abuse Vertigo Home Medications vitamin E mixed 400 unit capsule 800 unit PO .qd supplement 04/12/22 [History Last Taken Unknown] hydroxyzine pamoate 50 mg capsule 50 mg PO TID PRN anxiety #20 caps 05/30/22 [Rx Last Taken Unknown] meclizine 25 mg tablet 25 mg PO BID PRN dizziness #30 tabs 05/30/22 [Rx Last Taken Unknown] albuterol sulfate 2.5 mg/3 mL (0.083 %) solution for nebulization 2.5 mg (3 mL) inhalation Q6H PRN shortness of breath or wheezing #90 mL 06/27/22 [Rx Last Taken Unknown] ketoprofen 75 mg capsule 75 mg PO Q6H PRN Migraine Symptoms #100 caps 11/14/22 [Rx Last Taken Unknown] amlodipine 5 mg tablet 5 mg PO DAILY bp #90 tabs 12/15/22 [Rx Last Taken 02/14/23] levothyroxine 137 mcg tablet 137 mcg PO DAILY synthroid #90 tabs 02/13/23 [Rx Last Taken 02/14/23] prochlorperazine maleate 10 mg tablet (Compazine) 10 mg PO BID PRN Migraine Symptoms #30 tabs 02/22/23 [Rx Last Taken Unknown] ursodiol 300 mg capsule 300 mg PO BID #180 caps 02/22/23 [Rx Last Taken Unknown] colestipol 1 gram tablet 1 g PO BID #60 tabs 04/10/23 [Rx Last Taken Unknown] compress.stocking,knee,reg,lrg #2 ea 04/19/23 [Rx Last Taken Unknown] Allergy/AdvReac Type Severity Reaction Status Date / Time latex Allergy Itching Verified 05/04/23 12:19 naproxen Allergy Unknown Verified 05/04/23 12:19 Penicillins [PCN] Allergy Rash Verified 05/04/23 12:19 escitalopram [From Lexapro] AdvReac Intermediate Lightheaded Verified 05/04/23 12:19 sertraline [From Zoloft] AdvReac Intermediate Dizzy & Verified 05/04/23 12:19 Headache dicyclomine [From Bentyl] AdvReac Unknown Unknown Verified 05/04/23 12:19 hydrocodone [From Vicodin] AdvReac Other Verified 05/04/23 12:19 ketorolac [From Toradol] AdvReac Other Verified 05/04/23 12:19 Family History Grandmother Diabetes Other Family history of skin cancer High cholesterol Hypertension Surgical History History of carpal tunnel surgery of right wrist History of surgery on arm History of surgery on lower extremity History of thyroidectomy History of total vaginal hysterectomy (TVH) (~03/22/22) Status post incision and drainage (~04/15/22) Social History Smoking Status: Current every day smoker tobacco type: cigarettes Tobacco: How many years used: 13 Electronic Cigarette Use: not used second hand exposure: No alcohol intake: current alcohol intake frequency: holidays/special occasions only substance use type: does not use caffeine: Yes what type of physical activity do you participate in: none seatbelt use: always do you feel safe at home: Yes additional social history: emmy HAMILTON ROS ED ROS Narrative Denies recent illness. Review of Systems ROS Unobtainable: Denies due to encephalopathy Constitutional Constitutional ED: Denies chills or fever(s) Eyes Eyes: Denies blurry vision ENT ENT ED: Denies ear pain Cardiovascular Cardiovascular: Denies chest pain or palpitations Respiratory/Chest Respiratory/Chest: Denies cough or dyspnea Gastrointestinal Gastrointestinal: Denies abdominal pain Genitourinary Genitourinary ED: Denies dysuria Musculoskeletal Musculoskeletal: Denies arthralgias Integumentary Denies abscess Neurologic Neurologic: Denies headache(s) Psychiatric Psychiatric: Denies anxiety Endocrine Endocrinology: Denies polydipsia Hematologic/Lymphatic Hematologic/Lymphatic: Denies easy bleeding, easy bruising or lymphadenopathy Allergic/Immunologic Allergic/Immunologic ED: Denies mouth swelling, tongue swelling or urticaria EXAM Physical Exam Narrative Exam Narrative: Well-appearing 38-year-old female. Vital signs are stable blood pressure is elevated 126/113 history of chronic hypertension. H EENT exam pupils round reactive Lesch motions are intact. 2 very small subconjunctival hemorrhages right eye sclera. Otherwise unremarkable. No swelling. No proptosis. Extraocular motions intact. No vision change. Lungs clear. Heart regular rhythm. Otherwise exam normal. Neurologic exam normal. NIH 0. Const Vital Signs: 05/04/23 12:19 Temperature 98.3 F Temperature Source Temporal Pulse Rate 95 Respiratory Rate 14 Blood Pressure 126/113 H Blood Pressure Mean 117 Pulse Ox 100 Oxygen Delivery Method Room Air Positive well nourished and well developed; Negative for cachectic, contractures or unkempt General Appearance ED: well developed and NAD; Negative for unkempt, cachectic or contractures Nutritional Appearance: Negative for cachectic HEENT atraumatic; Negative for trauma or tenderness Eyes Eyes Narrative: Pupils equal and round reactive to light bilaterally. Extraocular motions intact. 2 small subconjunctival hemorrhages right lateral sclera. Neck no lymphadenopathy, supple and no JVD General: Negative for tenderness Resp normal respiratory effort, no retractions, no use of accessory muscles and clear to auscultation bilaterally Cardio regular rate, regular rhythm, S1 normal heart sound, S2 normal heart sound and no murmurs Jugular Venous Distention: Negative for other GI non-tender, non-distended and no masses Inspection: Negative for other Auscultation: normoactive bowel sounds Palpation: soft Back/Spine no CVA tenderness General Back: Negative for CVA tenderness Extremity normal to inspection General Extremety ED: Negative for edema General Extremity: Negative for edema Neuro oriented x3, CN's II-XII intact bilaterally, moves all extremities and no sensory deficits noted Sensorium / Orientation: alert, oriented to person, oriented to place and oriented to time; Negative for orientation impaired Motor Exam: strength 5/5 throughout Psych Appearance: Negative for unkempt Attitude: No agitated Mood & Affect: Negative for depressed, anxious or tearful Skin no wounds Lesions: no lesions Rashes: no rashes Trauma: Negative for abrasion MDM MDM MDM Narrative Medical decision making narrative: 38-year-old with small subconjunctival hemorrhage on the right. Does not need any labs or imaging. I discussed this with her. History & Record Review Discussion w/independent historian: Patient Additional record(s) reviewed:: Prior inpatient record, Prior outpatient record, Prior ED visit and Prior labs Discharge Plan Triage Chief Complaint: Eye Problem ED Provider: Ry Enamorado Dx/Rx/DC Orders Clinical Impression: Non-traumatic subconjunctival hemorrhage of right eye, Chronic hypertension Instructions: ED Subconjunctival Hemorrhage Prescriptions: No Action hydroxyzine pamoate 50 mg capsule 50 mg PO TID PRN (Reason: anxiety) Qty: 20 0RF meclizine 25 mg tablet 25 mg PO BID PRN (Reason: dizziness) Qty: 30 1RF (DME) compress.stocking,knee,reg,lrg Misc See Rx Instructions .MEDSUPPLY Qty: 2 1RF Rx Instructions: wear daily for venous insufficiency 20-30 mmHg vitamin E mixed 400 unit capsule 800 unit PO .qd albuterol sulfate 2.5 mg /3 mL (0.083 %) solution for nebulization 2.5 mg inhalation Q6H PRN (Reason: shortness of breath or wheezing) Qty: 90 1RF ketoprofen 75 mg capsule 75 mg PO Q6H PRN (Reason: Migraine Symptoms) Qty: 100 0RF Rx Instructions: 1 cap PO at on set of headache max of 3 in 24 hours, max 20 per month amlodipine 5 mg tablet 5 mg PO DAILY Qty: 90 1RF levothyroxine 137 mcg tablet 137 mcg PO DAILY Qty: 90 1RF prochlorperazine maleate [Compazine] 10 mg tablet 10 mg PO BID PRN (Reason: Migraine Symptoms) Qty: 30 1RF ursodiol 300 mg capsule 300 mg PO BID Qty: 180 1RF colestipol 1 gram tablet 1 g PO BID Qty: 60 2RF Primary Care Provider: Jose Alejandro London Referrals: Jose Alejandro London MD [Primary Care Provider] - As Needed Activity Restrictions/Additional Instructions: This should improve over the next week. Disposition Disposition: Home, Self Care
== END 2023-05-04 13:28 | disposition home or self-care (01) ==
PROVIDERS: Emergency Provider Emergency Medicine; PCP Internal Medicine; Visit Provider Emergency Medicine
DX: H11.31 Conjunctival hemorrhage, right eye (principal); E66.01 Morbid (severe) obesity due to excess calories; I10 Essential (primary) hypertension; G89.29 Other chronic pain; K75.81 Nonalcoholic steatohepatitis (NASH); F90.2 Attention-deficit hyperactivity disorder, combined type; F41.9 Anxiety disorder, unspecified; F32.A Depression, unspecified; G25.81 Restless legs syndrome; M19.90 Unspecified osteoarthritis, unspecified site; F17.210 Nicotine dependence, cigarettes, uncomplicated; Z79.899 Other long term (current) drug therapy; Z97.3 Presence of spectacles and contact lenses
CPT/HCPCS: 99283

== ENCOUNTER 2023-05-16 08:29 | Outpatient (CLI) | payer MEDICAID, SELFPAY ==
--- NOTE | 2023-05-16 08:30 | US_ITS ---
STUDY: ABDOMINAL ULTRASOUND - RIGHT UPPER QUADRANT; ELASTOGRAPHY REASON FOR VISIT: Female, 38 years old. NAFLD. TECHNIQUE: Ultrasound evaluation of the right upper quadrant was performed with real-time and static gonzalez-scale imaging. Point quantification shear wave elastography was performed (Model Metrics). TECHNICAL QUALITY: Adequate. COMPARISON: Comparison is made with prior study dated November 08, 2022. FINDINGS: Liver: The liver measures 17.9 cm. There is increased echogenicity consistent with fatty infiltration. The bile ducts are within normal limits. There is hepatic color flow. The direction of portal flow is hepatopetal. There is no demonstrated mass lesion. Median liver stiffness measured 5.8 kPa. Gallbladder: Normal distended gallbladder. The gallbladder wall measures 2.1 mm. There is a negative sonographic Johnston''s sign. There is no pericholecystic fluid. There are no gallstones. Common Bile Duct (C.B.D.): The common bile duct measures 3.4 mm. Pancreas: There is normal echogenicity of the visualized pancreas. There is no demonstrated pancreatic mass or cyst. Right Kidney: Normal size of the right kidney. The right kidney measures 12 cm x 5.2 cm x 4.8 cm. Normal renal cortex. The right cortex measures 1.3 cm. There is no demonstrated renal mass or cyst. There is no right hydronephrosis. US/ABD Limited w/ Elastography IMPRESSION: 1. Liver stiffness measures 5.8 kPa compatible with F0-F1 (Normal to mild liver fibrosis) Metavir score. Electronically Signed: Christiano Eduardo MD at 9:40 EST ,
== END 2023-05-16 23:59 | disposition home or self-care (01) ==
LOC: US 08:30
PROVIDERS: PCP Internal Medicine; Referring Provider Internal Medicine Gastroenterology; Visit Provider Internal Medicine Gastroenterology
DX: K76.0 Fatty (change of) liver, not elsewhere classified (principal)
CPT/HCPCS: 76705; 76981

== ENCOUNTER 2023-06-29 09:41 | Emergency (ER) | payer MEDICAID, SELFPAY ==
[2023-06-29 09:42] VITALS: BP 136/78; PULSE 94; RESP 16; TEMP 36.6; O2SAT 100; BMI 60.7
--- NOTE | 2023-06-29 10:04 | RAD_ITS ---
STUDY: X-RAY - CERVICAL SPINE REASON FOR EXAM: Female, 38 years old. Neck pain, RUE radicular sx TECHNIQUE: 6 view(s) of the cervical spine were obtained including oblique views. COMPARISON: Comparison is made with prior study February 13, 2023. FINDINGS: Normal anterior atlantoaxial articulation. Normal odontoid process. There is straightening of the normal cervical lordosis. Anterior spondylosis at the C4-C5 and C5-C6 level. Normal disc space heights. Normal visualized intervertebral neuroforamina. The soft tissue structures are unremarkable. RAD/Cerv Spine 4 or 5 Views IMPRESSION: There is straightening of the normal cervical lordosis. Stable mild degenerative changes at the C4-C5 and C5-C6 levels. Electronically Signed: Christiano Eduardo MD at 10:27 EST ,
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
--- OUTSIDE RECORDS SUMMARY | 2023-06-29 11:52 | XMS RPT_ITS | CCD ---
Author Name Unknown Address [address] [place] [address] Organization [facility] Care Team Providers Care Classroom Paraprofessional Name Role Phone Teresa HARTMAN, Cassidy Brunson Unavailable [phone] Lili MAP EDITOR, Hanh Truong Unavailable [phone] Richie, Debora Mitchell Unavailable Unavailable Richie, Debora A Unavailable Unavailable Tammy Whitman Unavailable Unavailable SHELBY Reynoso RN, Sneha Medrano Unavailable Unavailteresita Pearson MAP EDITOR, Hanh Truong Unavailable Cassidy Moore MD Unavailable [phone] Pending, Provider Primary Care Unavailable Dr. Alex Paris Attending Unavail able OLEGHE, EFEWONGBE LISE Primary Care Unav ailable CADEANDRIA BLISS Attending Unavailab le OLEGHE, EFEWONGBE LISE Primary Care Unav ailable RADHA MO Attending Unavaila ble OLEGHE, EFEWONGBE LISE Primary Care Unav ailable LILIWILSON Truong Attending Unava ilable OLEGHE, EFEWONGBE LISE Primary Care Unav ailable HERB VALLADARES Attending Unavailable OLEGHE, EFEWONGBE LISE Primary Care Unav ailable LILIWILSON Truong Attending Unava ilable OLEGHE, EFEWONGBE LISE Primary Care Unav ailable CADEANDRIA Attending Unavailab le OLEGHE, EFEWONGBE LISE Primary Care Unav ailable LIBERTAD ROBIN Attending Unavailable OLEGHE, EFEWONGBE LISE Primary Care Unav ailable DANIAL DAVIS Attending Unavailable OLEGHE, EFEWONGBE LISE Primary Care Unav ailSANDI Domingo Attending Unavailable WILSON PEARSON Referring Unava ilALEENA Peter MD Primary Care Physician ALAN QUINN DO Attending Unavailable ALEENA TRAMMELL MD Primary Care Unavailab ALEENA Horn MD Primary Care Unavailab BALDO Farah Attending Unavailable JESSE EUBANKS Attending Unavailable DIMPLE LYNN Referring Unavaila TAMMY Boswell Primary Care Unavailable Dimple Lynn Unavailable Unavailable Primary Care Provider Unavailabl e Allergies Allergy Classification Reported Allergen(s) Allergy Type Date of Onset Reaction(s) Facility (20 sources) ondansetron; Translations: [Zofran] drug allergy 01-10-[address] [facility] (20 sources) penicillin v drug allergy 01-10-20 17 [facility] (1 source) ketorolac; Translations: [Toradol] Drug Allergy [facility] Repository (6 sources) Latex; Translations: [Latex] Propensity to adverse reactions to drug (disorder) 04-10-20 12 Eruption of skin (disorder), Rash [facility] Repository (5 sources) Penicillins; Translations: [penicillins] Propensity to adverse reactions to drug (disorder) 02-18-20 10 Hives [facility] Repository (2 sources) Acetaminophen / HYDROcodone; Translations: [HYDROCODONE-ACET AMINOPHEN] Drug Allergy 02-25-20 22 [facility] Repository (4 sources) Ketorolac; Translations: [KETOROLAC] Drug Allergy 05-27-19 16 Unknown [facility] Repository (2 sources) Ondansetron; Translations: [ONDANSETRON HCL] Drug Allergy 03-02-20 21 [facility] Repository (1 source) Penicillin; Translations: [penicillins] Drug Allergy Eruption of skin (disorder) [facility] (2 sources) Dicyclomine; Translations: [DICYCLOMINE] Drug Allergy 05-27-19 16 Intolerance [facility] Repository (2 sources) Escitalopram; Translations: [ESCITALOPRAM OXALATE] Drug Allergy 02-25-20 16 Other: See Comments [facility] Repository (2 sources) HYDROcodone; Translations: [HYDROCODONE] Drug Allergy 11-10-19 23 Unknown [facility] Repository (2 sources) Naproxen; Translations: [NAPROXEN] Drug Allergy 06-03-19 20 Unknown [facility] Repository (2 sources) Ondansetron; Translations: [ONDANSETRON HCL (PF)] Drug Allergy 08-17-19 13 Other: See Comments [facility] Repository (2 sources) Promethazine; Translations: [PROMETHAZINE HCL] Drug Allergy 12-28-19 18 Unknown [facility] Repository (2 sources) Sertraline; Translations: [SERTRALINE HCL] Drug Allergy 02-25-20 Other: See Comments [facility] Repository Medications Completed/Discontinued Medications Medication Drug Class(es) Dates Sig (Normalized) Sig (Original) 24 hr amphetamine aspartate 3.75 mg / amphetamine sulfate 3.75 mg / dextroamphetamine saccharate 3.75 mg / dextroamphetamine sulfate 3.75 mg extended release oral capsule (1 source) Central Nervous System Stimulant Start: 10-23-2020 take 1 capsule by mouth once daily amphetamine-dextro amphetamine XR (ADDERALL XR) 15 mg 24 hr capsule Indications: ADHD (attention deficit hyperactivity disorder), combined type Take 1 capsule by mouth once daily for 30 days. 30 capsule 0 10/23/2020 Active Problems Active Problems Problem Classification Problem Date Documented Date Episodic/Chronic Abdominal pain (11 sources) Right upper quadrant pain; Translations: [Right lower quadrant pain] Onset: 02-24-2022 Episodic Anxiety disorders (1 source) Generalized anxiety disorder; Translations: [Generalized anxiety disorder] Onset: 12-25-2018 08-26-2019 Chronic Attention-deficit, conduct, and disruptive behavior disorders (1 source) Attention deficit hyperactivity disorder, combined type; Translations: [Attention-deficit hyperactivity disorder, combined type] Onset: 03-28-2019 08-26-2019 Chronic Headache; including migraine (2 sources) Migraine; Translations: [Migraine without aura, not refractory ] Onset: 02-27-2017 05-01-2014 Chronic Menstrual disorders (20 sources) Irregular periods; Translations: [Irregular menstruation, unspecified] Onset: 01-09-2017 Resolved: 04-10-2017 01-09-2017 Chronic Mood disorders (1 source) Depressive disorder; Translations: [Depression] Onset: 05-11-2016 05-11-2016 Chronic Nausea and vomiting (1 source) Nausea; Translations: [Nausea] Onset: 07-05-2022 Episodic Other endocrine disorders (1 source) Polycystic ovary syndrome; Translations: [Polycystic ovarian syndrome] Onset: 03-02-2011 05-05-2014 Chronic Other liver diseases (1 source) Steatosis of liver; Translations: [Fatty (change of) liver, not elsewhere classified] Onset: 05-06-2014 05-06-2014 Chronic Other nutritional; endocrine; and metabolic disorders (20 sources) Body mass index 30+ - obesity; Translations: [Obesity, unspecified] Onset: 12-09-2016 01-09-2017 Chronic Ovarian cyst (5 sources) Unspecified ovarian cyst, right side; Translations: [Unspecified ovarian cyst, right side] Onset: 06-23-2022 Episodic Residual codes; unclassified (1 source) Acquired absence of ovaries, unilateral; Translations: [Acquired absence of ovaries, unilateral] Onset: 07-05-2022 Episodic Residual codes; unclassified (1 source) Acquired absence of both cervix and uterus; Translations: [Acquired absence of both cervix and uterus] Onset: 07-05-2022 Episodic Spondylosis; intervertebral disc disorders; other back problems (1 source) Prolapsed lumbar intervertebral disc; Translations: [Other intervertebral disc displacement, lumbar region] Onset: 09-09-2020 09-09-2020 Chronic Substance-related disorders (1 source) Smoker; Translations: [Nicotine dependence, unspecified, uncomplicated] Onset: 04-19-2018 09-06-2019 Chronic Thyroid disorders (20 sources) Hypothyroidism; Translations: [Acquired hypothyroidism] Onset: 06-29-2015 01-09-2017 Chronic Unclassified (1 source) NO SHOW Onset: 12-02-2020 12-02-2020 Past or Other Problems Problem Classification Problem Date Documented Date Episodic/Chronic Administrative/social admission (3 sources) Multigravida; Translations: [Encounter for supervision of other normal , second trimester] Onset: 01-09-2017 04-19-2017 Episodic Diabetes mellitus without complication (1 source) High hemoglobin A1c level; Translations: [Other abnormal glucose] Onset: 08-12-2020 08-12-2020 Episodic Headache; including migraine (14 sources) Headache; Translations: [Headache] Onset: 03-13-2017 Resolved: 04-10-2017 03-13-2017 Episodic Lymphadenitis (2 sources) Localized enlarged lymph nodes; Translations: [Localized enlarged lymph nodes] Onset: 11-23-2021 Episodic Normal and/or delivery (20 sources) Normal ; Translations: [Encounter for supervision of normal , unspecified, first trimester] Onset: 01-09-2017 01-11-2017 Episodic Nutritional deficiencies (1 source) Cobalamin deficiency; Translations: [Deficiency of other specified B group vitamins] Onset: 12-27-2018 08-26-2019 Episodic Other aftercare (2 sources) Patient encounter status; Translations: [Other intermediate (current) drug therapy] Onset: 10-12-2018 08-11-2020 Episodic Other complications of ; puerperium affecting management of mother (16 sources) Rhesus isoimmunization with problem; Translations: [Maternal care for other rhesus isoimmunization, first trimester, not applicable or unspecified] Onset: 01-09-2017 01-09-2017 Episodic Other complications of (20 sources) Vomiting of ; Translations: [Rhesus isoimmunization with problem] Onset: 01-09-2017 Resolved: 04-10-2017 01-17-2017 Episodic Other connective tissue disease (19 sources) Transient neurological symptoms; Translations: [Unspecified symptoms and signs involving the nervous system] Onset: 02-17-2017 Resolved: 04-10-2017 02-17-2017 Episodic Other connective tissue disease (1 source) Increased muscle tone; Translations: [Other specified disorders of muscle] Onset: 11-05-2018 11-05-2018 Episodic Other female genital disorders (20 sources) Vaginal discharge; Translations: [Other specified noninflammatory disorders of vagina] Onset: 01-17-2017 Resolved: 04-10-2017 01-17-2017 Episodic Other lower respiratory disease (2 sources) Solitary pulmonary nodule; Translations: [Solitary pulmonary nodule] Onset: 02-24-2022 Episodic Other lower respiratory disease (2 sources) Dyspnea, unspecified; Translations: [Dyspnea, unspecified] Onset: 09-25-2021 Episodic Other lower respiratory disease (1 source) Multiple nodules of lung; Translations: [Other nonspecific abnormal finding of lung field] Onset: 11-10-2020 11-10-2020 Episodic Other non-traumatic joint disorders (1 source) Chronic pain of left upper limb; Translations: [Pain in left shoulder] Onset: 05-19-2016 02-27-2017 Episodic Other upper respiratory infections (2 sources) Postnasal drip; Translations: [Postnasal drip] Onset: 11-23-2021 Episodic Spondylosis; intervertebral disc disorders; other back problems (20 sources) Backache; Translations: [Radiculopathy, lumbosacral region] Onset: 05-19-2016 Resolved: 04-10-2017 03-03-2017 Episodic Unclassified (20 sources) Threatened miscarriage; Translations: [Threatened ] Onset: 01-02-2017 Resolved: 04-10-2017 01-02-2017 Episodic Varicose veins of lower extremity (1 source) Venous varices; Translations: [Asymptomatic varicose veins of unspecified lower extremity] Onset: 04-10-2012 05-17-2021 Episodic Viral infection (1 source) Postherpetic neuralgia; Translations: [Other postherpetic nervous system involvement] Onset: 02-12-2018 08-26-2019 Episodic Results Test Name Value Interpretation Reference Range Facil ity Vital Signs Date Time Vital Sign Value Performing Clinician Lennox calles 08-15-2022 17:17-0400 Diastolic Blood Pressure Non-Invasive 82 1 ALAN QUINN DO [facility] 08-15-2022 17:17-0400 Heart rate 90 /min ALAN QUINN DO [facility] 08-15-2022 17:17-0400 Respiratory rate 18 /min ALAN QUINN DO [facility] 08-15-2022 17:17-0400 Systolic Blood Pressure Non-Invasive 154 1 ALAN QUINN DO [facility] 08-15-2022 16:04-0400 Body height 167.6 cm ALAN QUINN DO [facility] 08-15-2022 16:04-0400 Body temperature 99.14 [degF] ALAN QUINN DO [facility] 08-15-2022 16:04-0400 Body weight 103.5 kg ALAN QUINN DO [facility] 08-15-2022 16:04-0400 Diastolic Blood Pressure Non-Invasive 79 1 ALAN QUINN DO [facility] 08-15-2022 16:04-0400 Heart rate 108 /min ALAN QUINN DO [facility] 08-15-2022 16:04-0400 Respiratory rate 20 /min ALAN QUINN DO [facility] 08-15-2022 16:04-0400 Systolic Blood Pressure Non-Invasive 125 1 ALAN QUINN DO [facility] 04-19-2017 11:55-0500 BMI (Body Mass Index) 38.51 kg/m2 Hanh Pearson NP [facility] 04-19-2017 11:55-0500 BP Diastolic 72 mm[Hg] Hanh Pearson NP [facility] 04-19-2017 11:55-0500 BP Systolic 113 mm[Hg] Hanh Pearson NP [facility] 04-19-2017 11:55-0500 Weight 108.23 kg Hanh Pearson NP [facility] 04-10-2017 05:19-0500 BMI (Body Mass Index) 38.73 kg/m2 Cassidy Moore MD [facility] 04-10-2017 05:19-0500 BP Diastolic 78 mm[Hg] Cassidy Moore MD [facility] 04-10-2017 05:19-0500 BP Systolic 123 mm[Hg] Cassidy Moore MD [facility] 04-10-2017 05:19-0500 Weight 108.86 kg Cassidy Moore MD [facility] 03-13-2017 09:06-0400 BMI (Body Mass Index) 38.83 kg/m2 Hanh Pearson MAP EDITOR [facility] 03-13-2017 09:06-0400 BP Diastolic 77 mm[Hg] Hanh Rolla MAP EDITOR [facility] 03-13-2017 09:06-0400 BP Systolic 122 mm[Hg] Hanh Rolla MAP EDITOR [facility] 03-13-2017 09:06-0400 Pulse (Heart Rate) 95 /min Hanh Pearson MAP EDITOR [facility] 03-13-2017 09:06-0400 Weight 109.14 kg Hanh Lili MAP EDITOR [facility] 02-17-2017 06:51-0400 BMI (Body Mass Index) 38.41 kg/m2 Cassidy Moore MD [facility] 02-17-2017 06:51-0400 Body Temperature 98.4 [degF] Cassidy Moore MD [facility] 02-17-2017 06:51-0400 BP Diastolic 79 mm[Hg] Cassidy Moore MD [facility] 02-17-2017 06:51-0400 BP Systolic 113 mm[Hg] Cassidy Moore MD [facility] 02-17-2017 06:51-0400 Pulse (Heart Rate) 97 /min Cassidy Moore MD [facility] 02-17-2017 06:51-0400 Respiratory Rate 16 /min Cassidy Moore MD [facility] 02-17-2017 06:51-0400 Weight 107.96 kg Cassidy Moore MD [facility] 02-09-2017 11:21-0400 BMI (Body Mass Index) 38.51 kg/m2 Cassidy Moore MD [facility] 02-09-2017 11:21-0400 Body Temperature 98.5 [degF] Cassidy Moore MD [facility] 02-09-2017 11:21-0400 BP Diastolic 79 mm[Hg] Cassidy Moore MD [facility] 02-09-2017 11:21-0400 BP Systolic 122 mm[Hg] Cassidy Moore MD [facility] 02-09-2017 11:21-0400 Pulse (Heart Rate) 96 /min Cassidy Moore MD [facility] 02-09-2017 11:21-0400 Respiratory Rate 16 /min Cassidy Moore MD [facility] 02-09-2017 11:21-0400 Weight 108.23 kg Cassidy Moore MD [facility] 01-17-2017 13:53-0400 BMI (Body Mass Index) 38.64 kg/m2 Hanh Pearson MAP EDITOR [facility] 01-17-2017 13:53-0400 Body Temperature 98.2 [degF] Hanh Pearson MAP EDITOR [facility] 01-17-2017 13:53-0400 BP Diastolic 85 mm[Hg] Hanh Pearson MAP EDITOR [facility] 01-17-2017 13:53-0400 BP Systolic 127 mm[Hg] Hanh Pearson MAP EDITOR [facility] 01-17-2017 13:53-0400 Height 167.64 cm Hanh Pearson MAP EDITOR [facility] 01-17-2017 13:53-0400 Pulse (Heart Rate) 87 /min Hanh Pearson MAP EDITOR [facility] 01-17-2017 13:53-0400 Respiratory Rate 16 /min Hanh Pearson MAP EDITOR [facility] 01-17-2017 13:53-0400 Weight 108.59 kg Hanh Pearson MAP EDITOR [facility] 01-09-2017 15:06-0400 BMI (Body Mass Index) 38.6 kg/m2 Cassidy Moore MD [facility] 01-09-2017 15:06-0400 Body Temperature 98.2 [degF] Cassidy Moore MD [facility] 01-09-2017 15:06-0400 BP Diastolic 76 mm[Hg] Cassidy Moore MD [facility] 01-09-2017 15:06-0400 BP Systolic 119 mm[Hg] Cassidy Moore MD [facility] 01-09-2017 15:06-0400 Height 167.64 cm Cassidy Moore MD [facility] 01-09-2017 15:06-0400 Pulse (Heart Rate) 111 /min Cassidy Moore MD [facility] 01-09-2017 15:06-0400 Respiratory Rate 16 /min Cassidy Moore MD [facility] 01-09-2017 15:06-0400 Weight 108.5 kg Cassidy Moore MD [facility] Encounters Encounter Date Encounter Type Care Provider Facility Start: 04-12-2023 Telephone encounter Fatmata maher MD Work Phone: [facility] Procedures Date Procedure Procedure Detail Performing Clinician Start: 04-19-2017 End: 04-19-2017 Routine OB Visit (Global) Hanh walter MAP EDITOR Work Phone: Start: 04-10-2017 End: 04-10-2017 Routine OB Visit (Global) Cassidy villatoro MD Work Phone: Start: 03-13-2017 End: 03-13-2017 Routine OB Visit (Global) Hanh walter MAP EDITOR Work Phone: Start: 03-03-2017 End: 03-03-2017 Routine OB Visit (Global) Hanh walter MAP EDITOR Work Phone: Start: 02-17-2017 End: 02-17-2017 Routine OB Visit (Global) Cassidy villatoro MD Work Phone: Start: 02-17-2017 End: 02-17-2017 Routine OB Visit (Global) Cassidy villatoro MD Work Phone: Start: 02-09-2017 End: 02-20-2017 *CBC with Differential Cassidy page MD Work Phone: Start: 02-09-2017 End: 02-20-2017 *HEBSAG - Hep B Surface Antigen 6510 Cassidy Moore MD Work Phone: Start: 02-09-2017 End: 02-20-2017 *HIV antibody Cassidy Moore MD Work Phone: Start: 02-09-2017 End: 02-20-2017 Hemoglobin A1c/Hemoglobin.total in Blood Cassidy Moore MD Work Phone: Start: 02-09-2017 End: 02-20-2017 Reagin Ab [Presence] in Serum by RPR Cassidy Moore MD Work Phone: Start: 02-09-2017 End: 02-20-2017 Rubella virus Ab [Units/volume] in Serum Cassidy Moore MD Work Phone: Start: 02-09-2017 End: 02-20-2017 *CBC with Differential Cassidy page MD Work Phone: Start: 02-09-2017 End: 02-20-2017 *HEBSAG - Hep B Surface Antigen 6510 Cassidy Moore MD Work Phone: Start: 02-09-2017 End: 02-20-2017 *HIV antibody Cassidy Moore MD Work Phone: Start: 02-09-2017 End: 02-20-2017 HbA1c Cassidy Moore MD Work Phone: Start: 02-09-2017 End: 02-20-2017 Reagin antibody presence Cassidy mijares MD Work Phone: Start: 02-09-2017 End: 02-20-2017 Rubella virus Ab [Units/volume] in Serum Cassidy Moore MD Work Phone: Start: 02-06-2017 End: 02-20-2017 Thyrotropin [Units/volume] in Serum or Plasma Cassidy Moore MD Work Phone: Start: 02-06-2017 End: 02-20-2017 Thyroxine (T4) [Mass/volume] in Serum or Plasma Cassidy Moore MD Work Phone: Start: 02-06-2017 End: 02-20-2017 Thyroid stimulating hormone (TSH) Cassidy Moore MD Work Phone: Start: 02-06-2017 End: 02-20-2017 Thyroxine (T4) Cassidy Moore MD Work Phone: Start: 01-09-2017 End: 01-09-2017 *ABS Antibody Screen, Indirect Cassidy Moore MD Work Phone: Start: 01-09-2017 End: 01-09-2017 *Blood Typing, RH Cassidy Moore MD Work Phone: Start: 01-09-2017 End: 01-09-2017 *CBC with Differential Cassidy page MD Work Phone: Start: 01-09-2017 End: 01-09-2017 *GC/Chlamydia Cassidy Moore MD Work Phone: Start: 01-09-2017 End: 01-09-2017 *HEBSAG - Hep B Surface Antigen 6510 Cassidy Moore MD Work Phone: Start: 01-09-2017 End: 01-09-2017 *HIV antibody Cassidy Moore MD Work Phone: Start: 01-09-2017 End: 01-09-2017 *TS Type and Screen Cassidy Moore MD Work Phone: Start: 01-09-2017 End: 01-09-2017 Bacteria identified in Urine by Culture Cassidy Moore MD Work Phone: Start: 01-09-2017 End: 01-09-2017 Glucose [Mass/volume] in Serum or Plasma --1 hour post 50 g glucose PO Cassidy Moore MD Work Phone: Start: 01-09-2017 End: 01-09-2017 Reagin Ab [Presence] in Serum by RPR Cassidy Moore MD Work Phone: Start: 01-09-2017 End: 01-09-2017 Routine OB Visit (Global) Cassidy villatoro MD Work Phone: Start: 01-09-2017 End: 01-09-2017 Rubella virus Ab [Units/volume] in Serum Cassidy Moore MD Work Phone: Start: 01-09-2017 End: 01-09-2017 Thyrotropin [Units/volume] in Serum or Plasma Cassidy Moore MD Work Phone: Start: 01-09-2017 End: 01-09-2017 Thyroxine (T4) [Mass/volume] in Serum or Plasma Cassidy Moore MD Work Phone: Start: 01-09-2017 End: 01-09-2017 Us uterus limited 1/> fetuses Cassidy Moore MD Work Phone: Start: 01-09-2017 End: 01-09-2017 *ABS Antibody Screen, Indirect Cassidy Moore MD Work Phone: Start: 01-09-2017 End: 01-09-2017 *Blood Typing, RH Cassidy Moore MD Work Phone: Start: 01-09-2017 End: 01-09-2017 *CBC with Differential Cassidy page MD Work Phone: Start: 01-09-2017 End: 01-09-2017 *GC/Chlamydia Cassidy Moore MD Work Phone: Start: 01-09-2017 End: 01-09-2017 *HEBSAG - Hep B Surface Antigen 6510 Cassidy Moore MD Work Phone: Start: 01-09-2017 End: 01-09-2017 *HIV antibody Cassidy Moore MD Work Phone: Start: 01-09-2017 End: 01-09-2017 *TS Type and Screen Cassidy Moore MD Work Phone: Start: 01-09-2017 End: 01-09-2017 GTT (glucose after 1hr PO glucose) Cassidy Moore MD Work Phone: Start: 01-09-2017 End: 01-09-2017 Ob us, limited, fetus(s) Cassidy mijares MD Work Phone: Start: 01-09-2017 End: 01-09-2017 Reagin antibody presence Cassidy mijares MD Work Phone: Start: 01-09-2017 End: 01-09-2017 Routine OB Visit (Global) Cassidy villatoro MD Work Phone: Start: 01-09-2017 End: 01-09-2017 Rubella virus Ab [Units/volume] in Serum Cassidy Moore MD Work Phone: Start: 01-09-2017 End: 01-09-2017 Thyroid stimulating hormone (TSH) Cassidy Moore MD Work Phone: Start: 01-09-2017 End: 01-09-2017 Thyroxine (T4) Cassidy Moore MD Work Phone: Start: 01-09-2017 End: 01-09-2017 Urine culture, bacteria Cassidy javed MD Work Phone: Start: 01-02-2017 End: 01-09-2017 Us uterus 14 wk transabdl 05/22 gestat Cassidy Moore MD Work Phone: Start: 01-02-2017 End: 01-09-2017 Ob us < 14 wks, single fetus Cassidy Moore MD Work Phone: Fracture of femur (disorder) ALAN QUINN DO Fracture of forearm (disorder) ALAN QUINN DO Plan of Treatment Date Care Activity Detail Author Start: 07-20-2053 Pneumococcal vaccination Pneum ococcal Vaccine (1 - PCV) [facility] Immunizations Immunization Date Immunization Notes Care Provider [facility] 08-11-2020 tetanus toxoid, redu wendy diphtheria toxoid, and acellular pertussis vaccine, adsorbed Tammy Whitman MD Work Phone: [facility] 04-16-2019 influenza virus vaccine, unspecified formulation Tammy Whitman MD Work Phone: [facility] 08-29-2012 RHO(D) immune globul in- IV or IM Tammy Whitman MD Work Phone: [facility] Work Phone: 06-22-2012 RHO(D) immune globul in- IV or IM Tammy Whitman MD Work Phone: [facility] 06-02-2012 RHO(D) immune globul in- IV or IM Tammy Whitman MD Work Phone: [facility] Payers Date Payer Category Payer Medicaid [id number] 2022 Medicaid [employer] [place] [employer] [id number] 2022-Present [phone] [address] [place] [address] Medicaid [id number] 2020 Unknown [id number] 2020 Unknown [id number] 2017 Unknown 1987 Unknown [id number] 1987 Unknown [id number] 1987 Unknown [id number] 1987 Unknown [id number] 1985 Unknown [id number] 1987 Unknown [id number] 1987 Unknown [id number] 1987 Unknown [id number] 1987 Unknown [id number] 1987 Unknown [id number] 1987 Unknown [id number] 1987 Unknown [id number] Social History Date Type Detail Facility Start: 09-02-2004 Tobacco smoking status Smokes tobacco daily (finding) [facility] Sex Assigned At Sex [facility] Start: 09-02-2004 History of tobacco use Cigarette Smoker [facility] Start: 01-27-2020 End: 11-16-2022 Cigarettes smoked current (pack per day) - Reported 1 [facility] Start: 11-16-2022 Tobacco use and exposure Smokeless tobacco non-user [facility] Start: 11-16-2022 Alcohol intake Current non-drinker of alcohol (finding) [facility] Start: 01-27-2020 End: 11-16-2022 Social connection and isolation panel [facility] Do you belong to any clubs or organizations such as congregational groups, unions, fra[employer]myCasa or athletic groups, or school groups? No [facility] Are you now , , , , never or living with a partner? [facility] How often to you hav e a drink containing alcohol? Monthly or less [facility] Work Phone: How many standard dr inks containing alcohol do you have on a typical day? 3 or 4 [facility] Work Phone: How often do you hav e 6 or more drinks on 1 occasion? Less than monthly [facility] Work Phone: How hard is it for y ou to pay for the very basics like food, housing, medical care, and heating Hard [facility] Work Phone: Adult Depression Screening Assessment 1 [facility] Do you feel stress - tense, restless, nervous, or anxious, or unable to sleep at night because your mind is troubled all the time - these days [OSQ] Only a little [facility] (I/We) worried wheth er (my/our) food would run out before (I/we) got money to buy more. Never true [facility] Work Phone: Start: 01-27-2020 Education 12 [facility] Start: 11-16-2022 Tobacco Comment Childhood home parents smoked outside. [facility] Start: 1985 Sex Assigned At Not on file [facility] Tobacco smoking stat us NHIS Tobacco smoking consumption unknown [facility] Functional Status Date Assessment Result Facility 08-15-2022 Functional Status Room check performed [facility] 08-15-2022 Functional Status [facility] Mental Status Date Assessment Result Facility 08-15-2022 Mental Status Orientation Oriented x 4 [facility] 08-15-2022 Mental Status [facility] Clinical Note 04-12-2023 Note Date & Type Note Facility 04-12-2023 Note Spoke with Sandra wyman [facility]. Explained that we do not except [employer]. State that she will call Pt to let her know. Ok to close referral [facility] Telephone encounter Note 04-12-2023 Telephone Encounter - Dimple Lewis - 04/12/2023 12:05 PM EST Note Date & Type Note Facility 04-12-2023 Telephone encounter Note Form atting of this note might be different from the original. Spoke with Sandra at [facility]. Explained that we do not except [employer]. State that she will call Pt to let her know. Ok to close referral [facility] Note 04-12-2023 Telephone Encounter - Dimple Lewis - 04/12/2023 12:05 PM EST Note Date & Type Note Facility 04-12-2023 Miscellaneous Notes Formattin g of this note might be different from the original. Spoke with Sandra at [facility]. Explained that we do not except [employer]. State that she will call Pt to let her know. Ok to close referral documented in this encounter [facility] Note 02-02-2023 Telephone Encounter - Zoila Escalona MA - 02/02/2023 2:59 PM EDTTelephone Encounter - Radha Stark - 02/02/2023 2:01 PM EDT Note Date & Type Note Facility 02-02-2023 Miscellaneous Notes Formattin g of this note might be different from the original. Spoke with patient and she indicated that she another PCP and now and was not sure why they sent this message to us. She is just trying figure out who scheduled the appointment. I did remove PCP. Zoila Escalona MA Austin Reynaga is calling Tammy Whitman MD today with concern regarding appointment on 02/06 with Chiropractic Neurologist. Patient asking who scheduled appointment because she did not. Please return call to patient. Patient has been identified by name and birthdate. Duration of symptoms: N/A Person calling: self Call patient at: on cell [phone] (home) [phone] (cell) Was an appointment scheduled: No Closing statement: Results or non-symptom based questions: Thank you for calling [facility], your call will be returned within the next business day. Radha Stark documented in this encounter [facility] Discharge instructions 08-15-2022 Note Date & Type Note Facility 08-15-2022 Hospital Discharg e instructions Patient Education 08/15/2022 16:51:47 ED Pain Management (04/2018)(CUSTOM) [facility] in our Emergency/Acute Care Facility Our staff understands that pain relief is important when someone is hurt or needs emergency care. However, providing ongoing pain relief is often complex. We recommend this be done through your primary health care provider such as your family doctor or paint spray tender. Because mistakes or misuses of pain medication can cause serious health problems and even , it is important that you provide accurate information about all medication you are taking. Our emergency/acute care facility will only provide pain relief options that are safe and appropriate. For your safety, we follow these guidelines when managing chronic pain: We are trained to look for and treat an emergency or urgent condition. We use our best judgment when treating pain, and follow all legal and ethical guidelines. We typically do not prescribe narcotic pain medicine for chronic pain if you have already received narcotic pain medication from another health care provider or emergency or acute care facility. We may contact your primary care provide to discuss your care. Typically, we will not prescribe narcotic pain medicine if we cannot talk directly with your primary care provider, we will provide you with a list of those providers in our area. We may provide only enough pain medication to last until you can contact your primary care provider. We will prescribe pain medication with a lower risk of addiction and overdose whenever possible. We will ask you to show a valid photo ID (like a tour driver's license) when you check into the emergency/acute care facility or before receiving a prescription for narcotic pain medication. If you do not have a photo ID, we may take your picture for the medical record. We may ask you to give a urine sample before prescribing narcotic pain medication. Health care laws, including HIPAA, allow us to request your medical record and share information with other health care providers who are treating you. Before prescribing a narcotic or other controlled substance, we check the [place] Automated Rx Reporting system (OARRS) or a similar database that tracks your narcotic and other controlled substance prescriptions. For your safety, we do not: Routinely give narcotic pain medication injections (shots or IV) for flare-ups of chronic pain; Refill stolen or lost prescriptions for narcotics or controlled substances; Provide missing Subutex, Suboxone, or Methadone doses; or, Prescribe long-acting or controlled-release pain medication such as OxyContin, MS Contin, Duragesics, Methadone, Exalgo, and Opana ER. Frequent users of the emergency/acute care facility may have care plans developed to assist in improving their care. The plans may include avoiding medicines likely to be abused or addictive. If you need help with substance abuse or addiction, please call the toll-free number for confidential referral to treatment between the hours of 8:00 AM and 5:00 PM Monday through Monday: or call the [facility] at [phone]. It is against the law to attempt to obtain controlled substance pain medicines by deceiving the health care provider caring for you. This can include getting multiple prescriptions from more than one provider or using someone else s name to obtain a prescription. Follow Up Care 08/15/2022 15:50:06 With:ALEENA TRAMMELL MD Address: [place] [address] [phone] When:2-4 days [facility] Clinical Note 08-15-2022 Note Date & Type Note Facility 08-15-2022 Note Discharge Instructions Thank you for allowing [facility] to assist you with your healthcare needs. The following is important discharge information regarding your hospital visit. Diagnosis from Today's Visit Lower leg pain-swelling What to Do Next Instructions from Your Care Team No qualifying data available. Post Acute Orders No qualifying data available. You Need to Schedule the Following Appointments Follow Up with ALEENA TRAMMELL MD When Within 2-4 days Where: [place] [address] [phone] Allergies Latex (Rash) penicillin (Rash) Medications Please ask your primary doctor or pharmacist before taking any other medication not listed, including over the counter drugs, herbal medications, vitamins and or supplements as they may interact with your home medications. What How Much When Instructions Last Dose Unchanged ketoprofen (ketoprofen 75 mg oral capsule) 1 cap by mouth As needed for for pain Unchanged prochlorperazine (Compazine) 1 tab by mouth As needed for Nausea Please take this list to your next doctor s visit. Bring all medications you take, including over the counter medications, herbals and other supplements with you to your doctor s visit. Patients and families are reminded to discard old lists and to update any records with all medication providers or retail pharmacies. Education Materials [facility] in our Emergency/Acute Care Facility Our staff understands that pain relief is important when someone is hurt or needs emergency care. However, providing ongoing pain relief is often complex. We recommend this be done through your primary health care provider such as your family doctor or paint spray tender. Because mistakes or misuses of pain medication can cause serious health problems and even , it is important that you provide accurate information about all medication you are taking. Our emergency/acute care facility will only provide pain relief options that are safe and appropriate. For your safety, we follow these guidelines when managing chronic pain: We are trained to look for and treat an emergency or urgent condition. We use our best judgment when treating pain, and follow all legal and ethical guidelines. We typically do not prescribe narcotic pain medicine for chronic pain if you have already received narcotic pain medication from another health care provider or emergency or acute care facility. We may contact your primary care provide to discuss your care. Typically, we will not prescribe narcotic pain medicine if we cannot talk directly with your primary care provider, we will provide you with a list of those providers in our area. We may provide only enough pain medication to last until you can contact your primary care provider. We will prescribe pain medication with a lower risk of addiction and overdose whenever possible. We will ask you to show a valid photo ID (like a tour driver's license) when you check into the emergency/acute care facility or before receiving a prescription for narcotic pain medication. If you do not have a photo ID, we may take your picture for the medical record. We may ask you to give a urine sample before prescribing narcotic pain medication. Health care laws, including HIPAA, allow us to request your medical record and share information with other health care providers who are treating you. Before prescribing a narcotic or other controlled substance, we check the [place] Automated Rx Reporting system (OARRS) or a similar database that tracks your narcotic and other controlled substance prescriptions. For your safety, we do not: Routinely give narcotic pain medication injections (shots or IV) for flare-ups of chronic pain; Refill stolen or lost prescriptions for narcotics or controlled substances; Provide missing Subutex, Suboxone, or Methadone doses; or, Prescribe long-acting or controlled-release pain medication such as OxyContin, MS Contin, Duragesics, Methadone, Exalgo, and Opana ER. Frequent users of the emergency/acute care facility may have care plans developed to assist in improving their care. The plans may include avoiding medicines likely to be abused or addictive. If you need help with substance abuse or addiction, please call the toll-free number for confidential referral to treatment between the hours of 8:00 AM and 5:00 PM Monday through Monday: or call the [facility] at [phone]. It is against the law to attempt to obtain controlled substance pain medicines by deceiving the health care provider caring for you. This can include getting multiple prescriptions from more than one provider or using someone else s name to obtain a prescription. Additional Information VACCINATE! IT SAVES LIVES! Members of the community who have not yet received the COVID-19 vaccine and would like to receive it can visit one of [facility] vaccine clinics. There are many vaccine clinic locations within the [facility]. For locations and available times, please visit www.gettheshot.coronavirus.[place].gov/. It is important to note that some COVID mobile vaccine clinics are held outdoors and may be canceled in rainy or stormy conditions. To learn more about pediatric vaccinations (ages 5-11), we invite you to visit the [employer] webpage. https://www.[employer].org/pages/2 228-Dxovd-Bgfcpbsqkro-Frequently-Asked -Questions.html To learn more about the COVID-19 vaccine, we invite you to visit the CDC website for a list of frequently asked questions. https://www.cdc.gov/coronavirus/2019-n cov/vaccines/faq.html [employer] [employer] Patient Portal Access Instructions: Stay connected with your healthcare team and access your personal medical information anytime with the [employer] Patient Portal. If you would like a full copy of your medical records please contact the [facility] Medical Records Department Monday through Monday between 8a.m. and 4:30p.m. Please follow the directions below to access the portal: 1.Access the email account you provided upon registration to the [facility].2.Look for an invitation email from [facility].3.Open the email and access the invitation link: Accept Invitation to [facility] [employer]4.Fill in the required still to create your account. Sign into www.Echo it with your username and password that you created in the above steps to stay up to date. You can then view a summary of results, a summary of your visits, and the ability to download your summaries to your computer or send the information securely to a physician. Remember that your healthcare information is confidential, so carefully consider who you will allow to register on the [facility] [employer] Patient Portal for access to your information. You can also access the [employer] Patient Portal on the [employer]. Simply click on Health Records under Health Data and then click on the [employer] logo. HOW TO SAFELY DISPOSE OF PRESCRIPTION MEDICATIONS Please use one of the following methods to safely dispose of your unused medications. 1.Use a drug disposal kit: the drug disposal pouch allows you to safely discard your old and unused drugs. Ask your nurse to give you one when you are discharged.2.Visit a local take-back location: Many local pharmacies and police departments have programs that collect old and unwanted prescription drugs. Call your local pharmacy or go to http://Good4U.Apiphany/9Z1Yo4b to find one close to you.3.Make use of household items: Use cat litter or old coffee grounds to dispose medications if other options are not available. Mix your drugs with these household products, seal them in an airtight container and throw it into the garbage. Call [facility]: [phone] to be sure your drugs can be disposed of in this way. Some medicines may require a different approach.4.Never flush your medications down the toilet. IF YOU HAVE BEEN PRESCRIBED AN OPIOIDS FOR PAIN If you have been prescribed an opioid (such as hydrocodone, oxycodone or morphine), it is critical to understand the possible side effects and risks of opioid pain medications. Even when taken as directed, opioids can have several side effects including: Tolerance, meaning you might need to take more of a medication for the same pain relief. Nausea, vomiting and/or constipation. Sleepiness, dizziness, dry mouth, confusion, depression or itching. Physical dependence, meaning you have withdrawal symptoms when a medication is stopped ? this can develop within a few days. KNOW YOUR RESPONSIBILITIES It is important to know exactly how much and how often to take the opioid pain medications you are prescribed. Never take opioids in higher amounts or more often than prescribed. Do not combine opioids with alcohol or other drugs that cause drowsiness, such as benzodiazepines, also known as benzos, including diazepam and alprazolam, muscle relaxants or sleep aids. Never sell or share prescription opioids. This is illegal. Store opioids in a secure place and out of reach of others (including children, family, friends and visitors). The last page(s) of this document has been signed and retained as a CHART COPY Signatures Patient Education Materials ED Pain Management (04/2018)(CUSTOM) Medication Leaflets My discharge plan and instructions have been reviewed and explained to me and I,AUSTIN REYNAGA understand my current condition and have read and understand these discharge instructions. I have received a written copy of the plan/instructions. If I have questions, I am aware that I should contact my doctor. 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: _ Date/Time: Relationship to Patient: Witness Name/Signature: Date/Time: [facility] History of Past illness Narrative 2018 Note Date & Type Note Facility documented as of this encounter (statuses as of 02/03/2023) [facility] Evaluation + Plan note Note Date & Type Note Facility Evaluation + Plan note No data available for this section [facility] Summary Purpose Family History No Family History Records FoundNo Family History Records FoundNo Family History Records FoundNo Family History Records FoundNo Family History Records FoundNo Family History Records FoundNo Family History Records FoundNo Family History Records FoundNo Family History Records Found Advance Directives No Advanced Directives Records FoundNo Advanced Directives Records FoundNo Advanced Directives Records FoundNo Advanced Directives Records FoundNo Advanced Directives Records FoundNo Advanced Directives Records FoundNo Advanced Directives Records FoundNo Advanced Directives Records FoundNo Advanced Directives Records Found Additional Source Comments INFORMATION SOURCE (unrecogn ized section and content) DATE CREATED AUTHOR AUTHOR'S ORGANIZ ATION 11/29/2017 [facility] DATE CREATED AUTHOR AUTHOR'S ORGANIZ ATION 07/07/2022 [facility] DATE CREATED AUTHOR AUTHOR'S ORGANIZ ATION 07/21/2022 [facility] DATE CREATED AUTHOR AUTHOR'S ORGANIZ ATION 07/21/2022 [facility] DATE CREATED AUTHOR AUTHOR'S ORGANIZ ATION 10/11/2022 [facility] ([place] DATE CREATED AUTHOR AUTHOR'S ORGANIZ ATION 11/17/2022 [facility] DATE CREATED AUTHOR AUTHOR'S ORGANIZ ATION 02/04/2023 [facility] DATE CREATED AUTHOR AUTHOR'S ORGANIZ ATION 04/14/2023 [facility] Patient Care team informatio n (unrecognized section and content) Source Comments (unrecognize d section and content) In the event this informatio n is protected by the Federal Confidentiality of Alcohol and Drug Abuse Patient Records regulations: The Federal rules restrict any use of the information to criminally investigate or prosecute any alcohol or drug abuse patient.[facility] Reason for Visit (unrecogniz ed section and content) Reason Onset Date Comments Referral 04/12/2023 FOR RECORDS PERTAINING TO PATIENTS WHO ARE OR HAVE BEEN ENROLLED IN A CHEMICAL DEPENDENCY/SUBSTANCEABUSE PROGRAM, SOME INFORMATION MAY BE OMITTED. This clinical summary was aggregated from multiple sources. Caution should be exercised in using it in the provision of clinical care. This summary normalizes information from multiple sources, and as a consequence, information in this document may materially change the coding, format and clinical context of patient data. In addition, data may be omitted in some cases. CLINICAL DECISIONS SHOULD BE BASED ON THE PRIMARY CLINICAL RECORDS. [employer] provides no warranty or guarantee of the accuracy or completeness of information in this document.
== END 2023-06-29 12:14 | disposition home or self-care (01) ==
PROVIDERS: Emergency Provider Emergency Medicine; PCP Internal Medicine; Visit Provider Emergency Medicine
DX: M47.22 Other spondylosis with radiculopathy, cervical region (principal); G89.29 Other chronic pain; F17.210 Nicotine dependence, cigarettes, uncomplicated; Z79.890 Hormone replacement therapy; Z79.899 Other long term (current) drug therapy
CPT/HCPCS: 72050; 99282

== ENCOUNTER 2023-07-18 20:10 | Emergency (ER) | payer MEDICAID, SELFPAY ==
[2023-07-18 20:10] VITALS: BP 114/76; PULSE 78; RESP 16; TEMP 36.7; O2SAT 97
[2023-07-18 20:12] VITALS: BP 132/89; PULSE 87; RESP 16; TEMP 36.7; O2SAT 99; BMI 37.1
[2023-07-18 22:46] LABS: CPK Total, Creatine Kinase 178 U/L (26-192)
[2023-07-18 22:47] LABS: D-Dimer Quantitative (DVT/PE) < 0.27 FEU/ug/m (0.27-0.49)
--- NOTE | 2023-07-18 23:35 | ED.VIS.LOWEX ---
HPI History of Present Illness Chief Complaint: Lower Extremity Injury Informant: patient Onset/Context/Timing Onset: Days (3) Context: Gradual Onset Timing: Continuous Quality of Pain: Aching Current Severity: Moderate Maximum Severity: Moderate Associated Symptoms Associated Symptoms: Negative for Parasthesia or Weakness Narrative Narrative: Patient presenting with gradual onset of pain in both of her calves but she states it really is the right one that hurts the most. The left one is just mild. She states the whole calf is sore but there is 1 particular spot that it seems to be focused on. She agrees it does not look any different than usual. She has a history of varicose veins. She has no history of DVT but she is concerned about 1. She agrees that she has had this before. She states the pain is worse this time but otherwise no different. She denies any chest pain or shortness of breath or syncope. [facility] History Abdominal pain ADHD (attention deficit hyperactivity disorder), combined type Anxiety and depression Arthritis Back pain Bronchitis Cancer Cardiology follow-up encounter Cervical lymphadenopathy Cervical radiculopathy Chronic back pain Chronic pain Chronic RUQ pain Contact with or exposure to other viral diseases Depression Dermatitis Easy bruising Ectopic cardiac beats Fatty liver Fibromyalgia NICOLÁS (generalized anxiety disorder) Almaz's thyroiditis Heartburn History of acne History of echocardiogram History of gestational diabetes History of pain when walking History of stress test History of ulceration Hypertension Hypocalcemia Injury of head and neck Left shoulder pain Left-sided low back pain with left-sided sciatica Leg cramps Localized swelling, mass and lump, neck Melanoma Migraine without aura and with status migrainosus, not intractable Morbid obesity MARCELINO (nonalcoholic steatohepatitis) Numbness and tingling of both upper extremities Numbness of both lower extremities Palpitations PONV (postoperative nausea and vomiting) Post herpetic neuralgia Restless legs Right femoral fracture RUQ abdominal pain Syncope Thyroid disease Tinnitus Tobacco abuse Vertigo Home Medications hydroxyzine pamoate 50 mg capsule 50 mg PO TID PRN anxiety #20 caps 05/30/22 [Rx Last Taken Unknown] meclizine 25 mg tablet 25 mg PO BID PRN dizziness #30 tabs 05/30/22 [Rx Last Taken Unknown] albuterol sulfate 2.5 mg/3 mL (0.083 %) solution for nebulization 2.5 mg (3 mL) inhalation Q6H PRN shortness of breath or wheezing #90 mL 06/27/22 [Rx Last Taken Unknown] amlodipine 5 mg tablet 5 mg PO DAILY bp #90 tabs 12/15/22 [Rx Last Taken 02/14/23] levothyroxine 137 mcg tablet 137 mcg PO DAILY synthroid #90 tabs 02/13/23 [Rx Last Taken 02/14/23] ursodiol 300 mg capsule 300 mg PO BID #180 caps 02/22/23 [Rx Last Taken Unknown] compress.stocking,knee,reg,lrg #2 ea 04/19/23 [Rx Last Taken Unknown] ketoprofen 75 mg capsule 75 mg PO Q6H PRN Migraine Symptoms #100 caps 05/17/23 [Rx Last Taken Unknown] prochlorperazine maleate 10 mg tablet (Compazine) 10 mg PO BID PRN Migraine Symptoms #30 tabs 05/23/23 [Rx Last Taken Unknown] clindamycin HCl 300 mg capsule 300 mg PO TID 7 days #21 caps 07/13/23 [Rx Last Taken Unknown] triamcinolone acetonide 0.025 % topical ointment 1 applic topical BID PRN itching #15 grams 07/18/23 [Rx Last Taken Unknown] Allergy/AdvReac Type Severity Reaction Status Date / Time latex Allergy Itching Verified 07/18/23 20:11 naproxen Allergy Unknown Verified 07/18/23 20:11 Penicillins [PCN] Allergy Rash Verified 07/18/23 20:11 escitalopram [From Lexapro] AdvReac Intermediate Lightheaded Verified 07/18/23 20:11 sertraline [From Zoloft] AdvReac Intermediate Dizzy & Verified 07/18/23 20:11 Headache dicyclomine [From Bentyl] AdvReac Unknown Unknown Verified 07/18/23 20:11 hydrocodone [From Vicodin] AdvReac Other Verified 07/18/23 20:11 ketorolac [From Toradol] AdvReac Other Verified 07/18/23 20:11 Family History Grandmother Diabetes Other Family history of skin cancer High cholesterol Hypertension Surgical History History of carpal tunnel surgery of right wrist History of surgery on arm History of surgery on lower extremity History of thyroidectomy History of total vaginal hysterectomy (TVH) (~03/22/22) Status post incision and drainage (~04/15/22) Social History Smoking Status: Current every day smoker tobacco type: cigarettes Tobacco: How many years used: 13 Electronic Cigarette Use: not used second hand exposure: No alcohol intake: current alcohol intake frequency: holidays/special occasions only substance use type: does not use caffeine: Yes what type of physical activity do you participate in: none seatbelt use: always do you feel safe at home: Yes additional social history: emmy [facility] ED Constitutional Constitutional ED: Denies chills or fever(s) Musculoskeletal Musculoskeletal: Reports extremity pain; Denies neck pain Integumentary Denies Abrasions, rash or wounds Neurologic Neurologic: Denies paresthesias or weakness EXAM Physical Exam Const Vital Signs: 07/18/23 20:12 07/18/23 20:10 Temperature 98.1 F 98.1 F Temperature Source Temporal Oral Pulse Rate 87 78 Respiratory Rate 16 16 Blood Pressure 132/89 H 114/76 Blood Pressure Mean 103 88 Pulse Ox 99 97 Oxygen Delivery Method Room Air Positive well nourished and well developed General Appearance ED: well developed and NAD Neck full ROM and supple Back/Spine normal ROM and normal to inspection Extremity normal to inspection and full ROM Extremity Narrative: Multiple areas of varicose veins in both lower legs. The right calf is tender in 1 particular area but there is no palpable cord or erythema. Full range of motion of all joints all compartments are soft and nondistended. Neuro oriented x3, no focal motor deficits and no sensory deficits noted Sensorium / Orientation: alert Psych mental status grossly normal and thought process normal Mood & Affect: anxious Skin no wounds Skin Narrative: No rash or erythema to the lower extremities. Rashes: no rashes MDM MDM MDM Narrative Medical decision making narrative: In screening for medical emergencies a CPK and a D-dimer were both obtained and both normal. Patient meets criteria for a D-dimer given her low Wells criteria score. She is stable for discharge home, I would recommend basically treating her empirically for superficial venous thrombosis. This entails warm/hot compresses which she really has not tried yet, and we talked about the details, in addition to aspirin. Lab Data Attestation: I reviewed the patient's lab results. Labs: Laboratory Results - last 24 hr 07/18/23 22:20 D-Dimer Quant (PE/DVT) < 0.27 L Total Creatine Kinase 178 Discharge Plan Triage Chief Complaint: Lower Extremity Injury ED Provider: Ashutosh Barajas Dx/Rx/DC Orders Clinical Impression: Bilateral calf pain Instructions: ED Thrombophlebitis, Superficial Prescriptions: No Action hydroxyzine pamoate 50 mg capsule 50 mg PO TID PRN (Reason: anxiety) Qty: 20 0RF meclizine 25 mg tablet 25 mg PO BID PRN (Reason: dizziness) Qty: 30 1RF (DME) compress.stocking,knee,reg,lrg Misc See Rx Instructions .MEDSUPPLY Qty: 2 1RF Rx Instructions: wear daily for venous insufficiency 20-30 mmHg clindamycin HCl 300 mg capsule 300 mg PO TID 7 Days Qty: 21 0RF triamcinolone acetonide 0.025 % ointment 1 applic topical BID PRN (Reason: itching) Qty: 15 1RF albuterol sulfate 2.5 mg /3 mL (0.083 %) solution for nebulization 2.5 mg inhalation Q6H PRN (Reason: shortness of breath or wheezing) Qty: 90 1RF amlodipine 5 mg tablet 5 mg PO DAILY Qty: 90 1RF levothyroxine 137 mcg tablet 137 mcg PO DAILY Qty: 90 1RF ursodiol 300 mg capsule 300 mg PO BID Qty: 180 1RF ketoprofen 75 mg capsule 75 mg PO Q6H PRN (Reason: Migraine Symptoms) Qty: 100 0RF Rx Instructions: 1 cap PO at on set of headache max of 3 in 24 hours, max 20 per month prochlorperazine maleate [Compazine] 10 mg tablet 10 mg PO BID PRN (Reason: Migraine Symptoms) Qty: 30 1RF Primary Care Provider: Jose Alejandro London Referrals: Jose Alejandro London MD [Primary Care Provider] - 1 Week if not improving Activity Restrictions/Additional Instructions: Take baby aspirin every day along with warm/hot compresses to affected area 2-3 times daily until pain resolved. Disposition Disposition: Home, Self Care
[2023-07-18] MEDS: Acetaminophen 500 MG Tablet 1000 MG PO (23:40)
[2023-07-18] MEDS: Aspirin 325 MG Tablet PO (23:41)
[2023-07-18 23:43] VITALS: BP 120/83; PULSE 74; RESP 16; TEMP 36.6; O2SAT 96
== END 2023-07-18 23:49 | disposition home or self-care (01) ==
PROVIDERS: Emergency Provider Emergency Medicine; PCP Internal Medicine; Visit Provider Emergency Medicine
DX: M79.661 Pain in right lower leg (principal); M79.662 Pain in left lower leg; I83.93 Asymptomatic varicose veins of bilateral lower extremities; F17.210 Nicotine dependence, cigarettes, uncomplicated
CPT/HCPCS: 36415; 82550; 85379; 99283

== ENCOUNTER → 2023-07-24 | Outpatient (CLI) | payer MEDICAID, SELFPAY ==
--- NOTE | 2023-07-24 14:25 | US_ITS ---
INDICATION: Right lower quadrant pain EXAMINATION: Ultrasound US Pelvis Non OB Complete With Transvaginal Imaging TECHNIQUE: Transabdominal and transvaginal pelvic ultrasound was performed. Grayscale, spectral waveform, and color flow Doppler evaluation of the adnexa. COMPARISON: Prior study dated: 12/06/2022 FINDINGS: UTERUS: The uterus is absent, status post hysterectomy. RIGHT OVARY: The right ovary measures 5.5 x 5.4 x 4.4 cm. There again is a complex right ovarian cystic lesion with septation measuring at this time about 4.3 x 4.2 x 2.7 cm. Previously measured 4.9 x 4.6 x 3.1 cm. There is normal arterial inflow and venous outflow present in the right ovary. LEFT OVARY: The left ovary is absent. Status post left nephrectomy. FREE FLUID: None. US/Pelvic w/ Transvaginal IMPRESSION: Persistent complex right ovarian cystic lesion unchanged or slightly smaller in size than the previous exam. Electronically Signed: Ishaan Christianson MD at 15:09 EST ,
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
== END | disposition home or self-care (01) ==
LOC: US 14:25
PROVIDERS: PCP Internal Medicine; Referring Provider Nurse Practitioner Women's Health; Visit Provider Nurse Practitioner Women's Health
DX: N83.209 Unspecified ovarian cyst, unspecified side (principal); R10.2 Pelvic and perineal pain
CPT/HCPCS: 76830; 76856

== ENCOUNTER 2023-07-25 19:10 | Emergency (ER) | payer MEDICAID, SELFPAY ==
[2023-07-25 19:13] VITALS: BP 122/84; PULSE 85; RESP 18; TEMP 36.6; O2SAT 100; BMI 37.9
[2023-07-25 19:51] LABS: Bacteria 0 SEEN /hpf (None Seen); Mucous, Urine 0 SEEN /hpf (<or=2+); Red Blood Cells-Urine 0 SEEN /hpf (0-5); White Blood Cells 0 SEEN /hpf (0-5)
[2023-07-25 19:53] LABS: Color, Urine Yellow (Yellow); Glucose, Dipstick Normal (Normal); Ketone-Dipstick Negative (Negative); Leukocyte Esterase-Dipstick Negative /ul (Negative); Nitrite-Dipstick Negative (Negative); Occult Blood-Urine Negative /ul (Negative); Protein-Dipstick Negative (Negative); Specific Gravity, Urine 1.015 (1.002-1.030); Urine Bilirubin Dipstick Negative (Negative); Urine Clarity Clear (Clear); Urine Urobilinogen Normal (Normal)
[2023-07-25 20:00] LABS: Squamous Epithelial Cells - UA 0-5 SEEN /hpf (5-10)
--- NOTE | 2023-07-25 22:37 | CT_ITS ---
INDICATION: R flank pain, urinary sx EXAMINATION: CT ABDOMEN AND PELVIS WITHOUT CONTRAST - CT Abdomen And Pelvis W/O Contrast Injection TECHNIQUE: Helically acquired images were obtained of the abdomen and pelvis without oral or IV contrast. A radiation dose optimization technique was used for this scan. IV Contrast dosage and agent: None. Oral contrast: None. COMPARISON: Pelvic ultrasound July 24, 2023 and December 06, 2022.. FINDINGS: LOWER CHEST: Mild bilateral basilar atelectasis. No cardiomegaly or pericardial effusion. LIVER: Homogeneous. No focal mass. GALLBLADDER AND BILIARY TREE: No calcified gallstones. No gallbladder distension or wall edema. No intra- or extrahepatic biliary ductal dilation. PANCREAS: No focal cystic or solid mass. SPLEEN: Normal size without focal cystic or solid mass. ADRENAL GLANDS: No nodules. KIDNEYS AND URETERS: Normal renal size and position. No hydronephrosis. PERITONEUM: No free air. No abscess. . BOWEL: No acute gastric finding. No small bowel distention or focal wall thickening. Normal appendix. Moderate colonic stool. No colonic wall thickening or surrounding inflammation. . LYMPH NODES: Multiple subcentimeter short axis right lower quadrant lymph nodes extending to the inferior margin of the kidney. VESSELS: Aorta is non-dilated. URINARY BLADDER: Unremarkable. REPRODUCTIVE ORGANS: Absent uterus. Midline likely right ovarian 4.5 cm physiologic cyst or cystic mass. Adjacent likely left ovary is unremarkable. No surrounding inflammation or pelvic free fluid. ABDOMINAL WALL: Small fat-containing umbilical hernia without inflammation. No discrete abdominal or pelvic wall hernia. BONES: No lytic or blastic abnormality. Partially seen right femoral internal fixation. CT/Abdomen/Pelvis without Cont IMPRESSION: No nephrolithiasis or hydronephrosis. Large right ovarian 4.5 cm cystic lesion better assessed on pelvic ultrasound July 24, 2023. Moderate colonic stool burden. Electronically Signed: Patrick Hoffman MD at 0:04 EST ,
--- NOTE | 2023-07-25 22:50 | ED.VIS.GI ---
HPI HPI - GI History of Present Illness Chief Complaint: Complaint Informant: patient Narrative Narrative: Patient states she was sent here by her [employer] practice for pain control and urinalysis to evaluate for infection, presumed that she is having ovarian cyst pain. She states she has been having right lower quadrant and periumbilical pain radiating into her right low back for the past week, but worse and more persistent for the past 2 days. She has a history of a complex right ovarian cyst and frequently gets painful episodes of this, it is encased in adhesions according to her, her [employer] states they could not easily perform a surgery on this because of that and referred her to a specialist to declined to operate. They also attempted to put her into menopause medically, but insurance refused it. She had an ultrasound yesterday as an outpatient showing persistence of the cyst. She states that the pain she is having including the pain by her umbilicus is the same pain as she has had in the past except the back pain is different and new. Also, she has been having unusual urinary symptoms for the past 2-3 weeks. She states she has urinary frequency but no dysuria or hematuria. When she is done urinating she still feels like she needs to go. Yesterday, when she had the ultrasound she had urinated prior to that and when they ultrasounded her, they stated that her bladder was full and this was a surprise her as it did not feel like she needed to urinate. [facility] Medical History Abdominal pain ADHD (attention deficit hyperactivity disorder), combined type Anxiety and depression Arthritis Back pain Bronchitis Cancer Cardiology follow-up encounter Cervical lymphadenopathy Cervical radiculopathy Chronic back pain Chronic pain Chronic RUQ pain Contact with or exposure to other viral diseases Depression Dermatitis Easy bruising Ectopic cardiac beats Fatty liver Fibromyalgia NICOLÁS (generalized anxiety disorder) Almaz's thyroiditis Heartburn History of acne History of echocardiogram History of gestational diabetes History of pain when walking History of stress test History of ulceration Hypertension Hypocalcemia Injury of head and neck Left shoulder pain Left-sided low back pain with left-sided sciatica Leg cramps Localized swelling, mass and lump, neck Melanoma Migraine without aura and with status migrainosus, not intractable Morbid obesity MARCELINO (nonalcoholic steatohepatitis) Numbness and tingling of both upper extremities Numbness of both lower extremities Palpitations PONV (postoperative nausea and vomiting) Post herpetic neuralgia Restless legs Right femoral fracture RUQ abdominal pain Syncope Thyroid disease Tinnitus Tobacco abuse Vertigo Home Medications hydroxyzine pamoate 50 mg capsule 50 mg PO TID PRN anxiety #20 caps 05/30/22 [Rx Last Taken Unknown] meclizine 25 mg tablet 25 mg PO BID PRN dizziness #30 tabs 05/30/22 [Rx Last Taken Unknown] albuterol sulfate 2.5 mg/3 mL (0.083 %) solution for nebulization 2.5 mg (3 mL) inhalation Q6H PRN shortness of breath or wheezing #90 mL 06/27/22 [Rx Last Taken Unknown] ursodiol 300 mg capsule 300 mg PO BID #180 caps 02/22/23 [Rx Last Taken Unknown] compress.stocking,knee,reg,lrg #2 ea 04/19/23 [Rx Last Taken Unknown] ketoprofen 75 mg capsule 75 mg PO Q6H PRN Migraine Symptoms #100 caps 05/17/23 [Rx Last Taken Unknown] prochlorperazine maleate 10 mg tablet (Compazine) 10 mg PO BID PRN Migraine Symptoms #30 tabs 05/23/23 [Rx Last Taken Unknown] triamcinolone acetonide 0.025 % topical ointment 1 applic topical BID PRN itching #15 grams 07/18/23 [Rx Last Taken Unknown] amlodipine 5 mg tablet 5 mg PO DAILY bp #90 tabs 07/25/23 [Rx Last Taken Unknown] levothyroxine 137 mcg tablet 137 mcg PO DAILY synthroid #90 tabs 07/25/23 [Rx Last Taken Unknown] ondansetron 4 mg disintegrating tablet 8 mg (2 x 4 mg) PO Q8H PRN PRN Nausea #20 tabs 07/26/23 [Rx Last Taken Unknown] oxycodone-acetaminophen 5 mg-325 mg tablet 1 tab PO Q6H PRN PRN Pain 3 days #12 TABLETS 07/26/23 [Rx Last Taken Unknown] Allergy/AdvReac Type Severity Reaction Status Date / Time latex Allergy Itching Verified 07/25/23 19:13 naproxen Allergy Unknown Verified 07/25/23 19:13 Penicillins [PCN] Allergy Rash Verified 07/25/23 19:13 escitalopram [From Lexapro] AdvReac Intermediate Lightheaded Verified 07/25/23 19:13 sertraline [From Zoloft] AdvReac Intermediate Dizzy & Verified 07/25/23 19:13 Headache dicyclomine [From Bentyl] AdvReac Unknown Unknown Verified 07/25/23 19:13 hydrocodone [From Vicodin] AdvReac Other Verified 07/25/23 19:13 ketorolac [From Toradol] AdvReac Other Verified 07/25/23 19:13 Family History Grandmother Diabetes Other Family history of skin cancer High cholesterol Hypertension Surgical History History of carpal tunnel surgery of right wrist History of surgery on arm History of surgery on lower extremity History of thyroidectomy History of total vaginal hysterectomy (TVH) (~03/22/22) Status post incision and drainage (~04/15/22) Social History Smoking Status: Current every day smoker tobacco type: cigarettes Tobacco: How many years used: 13 Electronic Cigarette Use: not used second hand exposure: No alcohol intake: current alcohol intake frequency: holidays/special occasions only substance use type: does not use caffeine: Yes what type of physical activity do you participate in: none seatbelt use: always do you feel safe at home: Yes additional social history: emmy [place] ED Constitutional Constitutional ED: Denies chills or fever(s) Eyes Eyes: Denies change in vision or diplopia ENT ENT ED: Denies rhinorrhea or sore throat Cardiovascular Cardiovascular: Denies chest pain or palpitations Respiratory/Chest Respiratory/Chest: Denies cough or dyspnea Gastrointestinal Gastrointestinal: Reports abdominal pain and nausea; Denies diarrhea or vomiting Genitourinary Genitourinary ED: Reports as per HPI and urinary frequency; Denies dysuria or hematuria Musculoskeletal Musculoskeletal: Reports back pain; Denies neck pain Integumentary Denies abscess or rash Neurologic Neurologic: Denies headache(s), paresthesias or weakness Psychiatric Psychiatric: Denies depression or suicidal thoughts EXAM Physical Exam Const Vital Signs: 07/25/23 19:13 Temperature 98 F Temperature Source Temporal Pulse Rate 85 Respiratory Rate 18 Blood Pressure 122/84 H Blood Pressure Mean 96 Pulse Ox 100 Oxygen Delivery Method Room Air Positive well nourished, well developed and obese General Appearance ED: well developed and NAD Nutritional Appearance: obese HEENT Reports moist mucous membranes normocephalic and atraumatic Eyes PERRL and EOMs intact bilaterally Neck full ROM and supple Resp normal respiratory effort and clear to auscultation bilaterally Cardio regular rate, regular rhythm and no murmurs GI non-distended GI Narrative: Diffuse right lower quadrant and pelvis tenderness. No guarding or rebound. This includes McBurney's point and just right of the umbilicus where there is no palpable hernia in the abdominal wall. Auscultation: normoactive bowel sounds Palpation: soft Back/Spine Back/Spine Narrative: Mild CVA tenderness on the right not on the left normal on inspection General Back: other FROM Extremity normal to inspection General Extremety ED: Negative for edema, pulses abnormal or tenderness General Extremity: Negative for edema or pulses abnormal Neuro oriented x3, CN's II-XII intact bilaterally and no sensory deficits noted Sensorium / Orientation: awake and alert Motor Exam: strength 5/5 throughout Skin no rashes or lesions noted and no wounds MDM MDM MDM Narrative Medical decision making narrative: I reviewed the ultrasound she had as an outpatient. Apparently she has a persistent complex right ovarian cyst. This does not necessarily confirm that her pain is from this although it has been presumed. Blood flow was normal on the ultrasound arguing against torsion. Given the urinary symptoms and the pain in the back I think it is reasonable to obtain a CT, to rule out ureteral or renal process such as a stone or other obstruction. I reviewed the images and report which I agree with, it shows a few subcentimeter nonspecific lymph nodes, the known ovarian cyst, and nothing else acute including lack of urolithiasis. Her urine does not appear to be infected. She is offered pain medication as well, she refused parenteral so she was given it orally. This really helped her pain. Will give her a prescription for some pain medication and Zofran and advised to follow-up. History & Record Review Additional record(s) reviewed:: Prior outpatient record Lab Data Attestation: I reviewed the patient's lab results. Labs: Laboratory Results - last 24 hr 07/25/23 07/25/23 19:46 22:50 WBC 6.6 RBC 4.80 Hgb 13.6 Hct 40.4 MCV 84.2 MCH 28.3 MCHC 33.7 RDW Std Deviation 38.5 RDW Coeff of Mikel 12.7 Plt Count 179 MPV 10.9 Immature Gran % (Auto) 0.200 Neut % (Auto) 56.2 Lymph % (Auto) 31.5 [place] % (Auto) 7.5 Eos % (Auto) 4.1 Baso % (Auto) 0.5 Absolute Neuts (auto) 3.7 Absolute Lymphs (auto) 2.07 Nucleated RBC % 0 Sodium 139 Potassium 3.6 Chloride 110 H Carbon Dioxide 26.0 Anion Gap 3 L BUN 11 Creatinine 0.70 Estim Creat Clear Calc 137.22 Est GFR (MDRD) Af Amer 122 Est GFR (MDRD) Non-Af 101 BUN/Creatinine Ratio 15.8 Glucose 103 Calcium 8.8 Urine Color Yellow Urine Clarity Clear Urine pH 6.0 Ur Specific [place] 1.015 Urine Protein Negative Urine Glucose (UA) Normal Urine Ketones Negative Urine Occult Blood Negative Urine Nitrite Negative Urine Bilirubin Negative Urine Urobilinogen Normal Ur Leukocyte Esterase Negative Urine RBC 0 SEEN Urine WBC 0 SEEN Ur Squamous Epith Cells 0-5 SEEN Urine Bacteria 0 SEEN Urine Mucus 0 SEEN Radiography Diagnostic Testing: Clinical Impression(s) from Imaging Studies Abdomen/Pelvis CT 07/25/23 22:37 IMPRESSION: No nephrolithiasis or hydronephrosis. Large right ovarian 4.5 cm cystic lesion better assessed on pelvic ultrasound July 24, 2023. Moderate colonic stool burden. Electronically Signed: Patrick Hoffman MD at 0:04 EST Reading Location ID and State: [facility] / [place] Tel , Service support , Discharge Plan Triage Chief Complaint: Complaint ED Provider: Ashutosh Barajas Dx/Rx/DC Orders Clinical Impression: Complex cyst of right ovary, Right sided abdominal pain Instructions: ED Ovarian Cyst Prescriptions: New oxycodone-acetaminophen [oxycodone-acetaminophen] 5-325 mg tablet 1 tab PO Q6H PRN PRN (Reason: Pain) 3 Days Qty: 12 0RF ondansetron [ondansetron] 4 mg tablet,disintegrating 8 mg PO Q8H PRN PRN (Reason: Nausea) Qty: 20 0RF No Action hydroxyzine pamoate 50 mg capsule 50 mg PO TID PRN (Reason: anxiety) Qty: 20 0RF meclizine 25 mg tablet 25 mg PO BID PRN (Reason: dizziness) Qty: 30 1RF (DME) compress.stocking,knee,reg,lrg Misc See Rx Instructions .MEDSUPPLY Qty: 2 1RF Rx Instructions: wear daily for venous insufficiency 20-30 mmHg triamcinolone acetonide 0.025 % ointment 1 applic topical BID PRN (Reason: itching) Qty: 15 1RF albuterol sulfate 2.5 mg /3 mL (0.083 %) solution for nebulization 2.5 mg inhalation Q6H PRN (Reason: shortness of breath or wheezing) Qty: 90 1RF ursodiol 300 mg capsule 300 mg PO BID Qty: 180 1RF ketoprofen 75 mg capsule 75 mg PO Q6H PRN (Reason: Migraine Symptoms) Qty: 100 0RF Rx Instructions: 1 cap PO at on set of headache max of 3 in 24 hours, max 20 per month prochlorperazine maleate [Compazine] 10 mg tablet 10 mg PO BID PRN (Reason: Migraine Symptoms) Qty: 30 1RF amlodipine 5 mg tablet 5 mg PO DAILY Qty: 90 1RF levothyroxine 137 mcg tablet 137 mcg PO DAILY Qty: 90 1RF Primary Care Provider: Jose Alejandro London Referrals: Jose Alejandro London MD [Primary Care Provider] - Dimple Han DO [Med Staff - Active Staff] - As Needed Disposition Disposition: Home, Self Care
[2023-07-25] MEDS: Ondansetron ODT 4 MG Tablet 8 MG PO (23:01)
[2023-07-25] MEDS: oxyCODONE 5 MG Tablet PO (23:01)
[2023-07-25 23:02] LABS: Absolute Lymphocyte Count 2.07 X10^3/uL (0.83-4.51); Absolute Neutrophil Count 3.7 X10^3/uL (2.0-7.7); Basophil# 0.03 X10^3/uL; Basophil% 0.5 % (0-1); Eosinophil# 0.27 X10^3/uL; Eosinophils% 4.1 % (0-5); Hematocrit 40.4 % (37-47); Hemoglobin 13.6 g/dL (12.0-15.0); Lymphocyte # 2.07 X10^3/ul (0.83-4.51); Lymphocyte % 31.5 % (19-41); Mean Corp Hgb Conc 33.7 g/dL (32-36); Mean Corpuscular Hgb 28.3 pg (27.0-32.0); Mean Corpuscular Volume 84.2 fL (81-99); Mean Platelet Vol. 10.9 fl (6.2-12.0); Monocyte# 0.49 X10^3/uL; Monocyte% 7.5 % (0-10); NRBC Flagged by Analyzer 0 % (0-5); Neutrophil % 56.2 % (47-70); Platelet Count 179 K/mm3 (150-450); RBC Distribution Width CV 12.7 % (11.6-14.6); RBC Distribution Width SD 38.5 fl (35.1-43.9); White Blood Count 6.6 K/mm3 (4.4-11.0)
[2023-07-25 23:15] LABS: Anion Gap 3 (5-15); BUN 11 mg/dL (7-18); BUN/Creat Ratio 15.8 RATIO (10-20); Calcium,Total 8.8 mg/dL (8.5-10.1); Chloride 110 mmol/L (98-107); EST Glomerular Filtration Rate 101 mL/min (>60); Est Glom Filt Rate - Afr Amer 122 mL/min (>60); Estimated Creatinine Clearance 137.22 ml/min; Glucose 103 mg/dL (74-106); Potassium 3.6 mmol/L (3.5-5.1); Sodium Level 139 mmol/L (136-145)
[2023-07-26 00:39] VITALS: RESP 18
== END 2023-07-26 00:40 | disposition home or self-care (01) ==
PROVIDERS: Emergency Provider Emergency Medicine; PCP Internal Medicine; Visit Provider Emergency Medicine
DX: N83.201 Unspecified ovarian cyst, right side (principal); R10.31 Right lower quadrant pain; R10.33 Periumbilical pain; R30.9 Painful micturition, unspecified; M54.9 Dorsalgia, unspecified; F17.210 Nicotine dependence, cigarettes, uncomplicated; E66.9 Obesity, unspecified
CPT/HCPCS: 74176; 80048; 81001; 85025; 99282; A4216; J2405

== ENCOUNTER → 2023-08-11 | Outpatient (CLI) | payer MEDICAID, SELFPAY ==
--- NOTE | 2023-08-11 10:26 | MRI_ITS ---
STUDY: MRI CERVICAL SPINE WITHOUT CONTRAST REASON FOR EXAM: Female, 38 years old. CERVICAL RADICULOPATHY TECHNIQUE: Standardized fat and water weighted pulse sequences were obtained in the sagittal and axial planes. COMPARISON: X-ray June 2023 FINDINGS: Normal foramen magnum and brainstem-cervical cord junction. Normal craniovertebral junction. Normal anterior atlantoaxial articulation. Normal odontoid process. There is reversal of the normal cervical lordosis. There is no acute fracture. Normal vertebral bodies and posterior osseous elements. C2-3: Normal endplates. Normal disc height, signal and morphology. Normal central canal and intervertebral neural foramina. C3-4: Normal endplates. Normal disc height, signal and morphology. Normal central canal and intervertebral neural foramina. C4-5: Central right paracentral disc protrusion, series 12 images 69 and 70. Moderate canal stenosis. Neural foramina are patent. C5-6: Normal endplates. Normal disc height, signal and morphology. Normal central canal and intervertebral neural foramina. C6-7: Normal endplates. Normal disc height, signal and morphology. Normal central canal and intervertebral neural foramina. C7-T1: Normal endplates. Normal disc height, signal and morphology. Normal central canal and intervertebral neural foramina. Normal cervical cord. Normal visualized soft tissue structures. MRI/Spine Cervical (Routine) IMPRESSION: Disc herniation with canal stenosis at C4-5. Electronically Signed: Ashutosh Smith MD at 15:03 EDT ,
== END | disposition home or self-care (01) ==
LOC: MRI 10:23
PROVIDERS: PCP Internal Medicine; Referring Provider Anesthesiology; Visit Provider Anesthesiology
DX: M54.12 Radiculopathy, cervical region (principal)
CPT/HCPCS: 72141

== ENCOUNTER → 2023-08-31 | Outpatient (CLI) | payer MEDICAID, SELFPAY | END | disposition home or self-care (01) | PROVIDERS: PCP Internal Medicine; Referring Provider Otolaryngology; Visit Provider Otolaryngology | DX: J02.9 Acute pharyngitis, unspecified (principal) | CPT/HCPCS: 87070; 87077 ==

== ENCOUNTER → 2023-09-05 | Outpatient (CLI) | payer MEDICAID, SELFPAY ==
[2023-09-05 15:01] LABS: Absolute Lymphocyte Count 1.28 X10^3/uL (0.83-4.51); Absolute Neutrophil Count 2.7 X10^3/uL (2.0-7.7); Basophil# 0.04 X10^3/uL; Basophil% 0.9 % (0-1); Eosinophil# 0.21 X10^3/uL; Eosinophils% 4.5 % (0-5); Hemoglobin 13.7 g/dL (12.0-15.0); Lymphocyte # 1.28 X10^3/ul (0.83-4.51); Lymphocyte % 27.5 % (19-41); Mean Corp Hgb Conc 33.4 g/dL (32-36); Mean Corpuscular Volume 83.8 fL (81-99); Mean Platelet Vol. 10.9 fl (6.2-12.0); Monocyte# 0.44 X10^3/uL; Monocyte% 9.4 % (0-10); NRBC Flagged by Analyzer 0 % (0-5); Neutrophil # 2.67 X10^3/uL (2.7-7.7); Neutrophil % 57.3 % (47-70); Platelet Count 193 K/mm3 (150-450); RBC Distribution Width CV 12.6 % (11.6-14.6); RBC Distribution Width SD 38.2 fl (35.1-43.9); Red Blood Count 4.89 M/mm3 (4.2-5.4); White Blood Count 4.7 K/mm3 (4.4-11.0)
[2023-09-05 15:37] LABS: AST(SGOT) 14 U/L (15-37); Alanine Aminotransfer ALT/SGPT 24 U/L (13-56); Albumin, Serum 3.6 g/dL (3.2-5.0); Alkaline Phosphatase 66 U/L (45-117); Anion Gap 5 (5-15); BUN 9 mg/dL (7-18); BUN/Creat Ratio 11.1 RATIO (10-20); CRP < 2.90 mg/L (0.0-3.0); Calcium,Total 8.5 mg/dL (8.5-10.1); Chloride 108 mmol/L (98-107); Creatinine, Serum 0.81 mg/dL (0.55-1.02); EST Glomerular Filtration Rate 84 mL/min (>60); Est Glom Filt Rate - Afr Amer 102 mL/min (>60); Globulin 3.5 g/dL (2.2-4.2); Glucose 109 mg/dL (74-106); Potassium 3.7 mmol/L (3.5-5.1); Protein, Total 7.1 g/dL (6.4-8.2); Sodium Level 139 mmol/L (136-145); T4 Free Direct 1.24 ng/dL (0.76-1.46); Thyroid Stim Hormone (TSH) 0.81 uIU/mL (0.358-3.74)
[2023-09-05 16:08] LABS: HIV - WCH Non-Reactive (Nonreactive); Syphilis Antibodies Non-reactive; Vitamin B12 288 pg/mL (211-911)
[2023-09-05 16:22] LABS: Hepatitis B Surface Antigen Non-Reactive (Nonreactive); Hepatitis C Antibody Non-Reactive (Nonreactive)
[2023-09-05 16:39] LABS: Hemoglobin A1c 5.6 % (3.8-5.6)
[2023-09-08 04:07] LABS: Chlamydia By Nucleic Acid AMP Negative (Negative); Gonococcus By Nucleic Acid AMP Negative (Negative)
== END | disposition home or self-care (01) ==
LOC: PAVLAB 14:35
PROVIDERS: Internal Medicine; PCP Internal Medicine; Referring Provider Nurse Practitioner Family; Visit Provider Nurse Practitioner Family
DX: Z11.3 Encounter for screening for infections with a predominantly sexual mode of transmission (principal); E11.9 Type 2 diabetes mellitus without complications; N89.8 Other specified noninflammatory disorders of vagina; K76.0 Fatty (change of) liver, not elsewhere classified; E06.3 Autoimmune thyroiditis; R63.4 Abnormal weight loss
CPT/HCPCS: 36415; 80053; 82607; 83036; 84439; 84443; 85025; 85610; 86140; 86703; 86780; 86803; 87070; 87205; 87340; 87491; 87591

== ENCOUNTER → 2023-09-21 | Outpatient (CLI) | payer MEDICAID, SELFPAY | END | disposition home or self-care (01) | LOC: LABSPEC 15:01 | PROVIDERS: PCP Internal Medicine; Referring Provider Otolaryngology; Visit Provider Otolaryngology | DX: J32.9 Chronic sinusitis, unspecified (principal) | CPT/HCPCS: 87070 ==

== ENCOUNTER 2023-09-29 15:14 | Emergency (ER) | payer MEDICAID, SELFPAY ==
[2023-09-29 15:14] VITALS: BP 149/90; PULSE 65; RESP 16; TEMP 36.1; O2SAT 100; BMI 38.6
--- NOTE | 2023-09-29 15:40 | EX.ED.DYSGE1 ---
HPI History of Present Illness Chief Complaint: Other, Pain/Inj Detail of Chief Complaint: Throat tightness and pain Informant: patient Onset/Context/Timing Onset: Weeks (Weeks. Diagnosed with strep. Followed up with ENT. Did not call on Monday as instructed) Timing: Continuous and Waxes and wanes Quality: Throat pain, anterior neck pain and posterior neck pain Location: Document under quality Current Severity: Mild Maximum Severity: Moderate Worsened by: Neck pain is worse with movement. Relieved by: Nothing Associated Symptoms Associated Symptoms: no paresthesia, anesthesia or motor weakness. No constitutional symptoms. Narrative Narrative: Patient is a 38-year-old female who was seen at urgent care mid August diagnosed with strep pharyngitis and prescribed cefdinir because of allergy to penicillin. She continued to have pain and was seen at urgent care on September 13. Her rapid strep and follow-up culture were both negative. She was prescribed doxycycline and prednisone at that time. She also an appointment with her internal medicine doctor for breast pain. She followed up with ENT because she had persistent pain. A rapid strep and culture were obtained which were both negative as well. She was instructed to call this past Monday, September 24 if she continued to have pain. She did not. She presents now because of posterior neck pain anterior neck pain with fullness swelling sensation. She denies fever, chills night sweats. She denies change in voice. She denies difficulty swallowing liquids or solids. She has not noted a difference between solids or liquids. She does report pain with movement of her neck. She denies fever, chills night sweats. She denies rhinorrhea, congestion or postnasal drainage. She denies ear pain. She denies chest pain or shortness of breath. She does have history of degenerative disc disease. She also complains of pain in the left trapezius area. She denies paresthesia, anesthesia or motor weakness of her left or right upper extremity. She has had no problems with coordination or balance. Prior similar symptoms: Yes Recent Illness/Hospitalization: Yes [facility] Medical History ADHD (attention deficit hyperactivity disorder), combined type Anxiety and depression Arthritis Back pain Breast pain, right Bronchitis Cancer Cardiology follow-up encounter Cervical lymphadenopathy Cervical radiculopathy Chronic back pain Chronic pain Chronic RUQ pain Contact with or exposure to other viral diseases Depression Dermatitis Easy bruising Ectopic cardiac beats Fatty liver Fibromyalgia NICOLÁS (generalized anxiety disorder) Almaz's thyroiditis Heartburn History of acne History of echocardiogram History of gestational diabetes History of pain when walking History of stress test Hypertension Hypocalcemia Injury of head and neck Left shoulder pain Left-sided low back pain with left-sided sciatica Leg cramps Localized swelling, mass and lump, neck Melanoma Migraine without aura and with status migrainosus, not intractable Morbid obesity MARCELINO (nonalcoholic steatohepatitis) Numbness and tingling of both upper extremities Numbness of both lower extremities Palpitations PONV (postoperative nausea and vomiting) Post herpetic neuralgia Restless legs Right femoral fracture RUQ abdominal pain Syncope Thyroid disease Tinnitus Tobacco abuse Vertigo Home Medications hydroxyzine pamoate 50 mg capsule 50 mg PO TID PRN anxiety #20 caps 05/30/22 [Rx Last Taken Unknown] albuterol sulfate 2.5 mg/3 mL (0.083 %) solution for nebulization 2.5 mg (3 mL) inhalation Q6H PRN shortness of breath or wheezing #90 mL 06/27/22 [Rx Last Taken Unknown] compress.stocking,knee,reg,lrg #2 ea 04/19/23 [Rx Last Taken Unknown] ketoprofen 75 mg capsule 75 mg PO Q6H PRN Migraine Symptoms #100 caps 05/17/23 [Rx Last Taken Unknown] amlodipine 5 mg tablet 5 mg PO DAILY bp #90 tabs 07/25/23 [Rx Last Taken Unknown] levothyroxine 137 mcg tablet 137 mcg PO DAILY synthroid #90 tabs 07/25/23 [Rx Last Taken Unknown] ondansetron 4 mg disintegrating tablet 8 mg (2 x 4 mg) PO Q8H PRN PRN Nausea #20 tabs 07/26/23 [Rx Last Taken Unknown] prochlorperazine maleate 10 mg tablet (Compazine) 10 mg PO BID PRN Migraine Symptoms #30 tabs 08/09/23 [Rx Last Taken Unknown] ursodiol 300 mg capsule 300 mg PO BID #180 caps 08/22/23 [Rx Last Taken Unknown] fluconazole 150 mg tablet 150 mg PO Q3D 2 doses #2 tabs 09/07/23 [Rx Last Taken Unknown] tirzepatide 2.5 mg/0.5 mL subcutaneous pen injector 2.5 mg (0.5 mL) subcut QWEEK 4 weeks #2 mL 09/11/23 [Rx Last Taken Unknown] Allergy/AdvReac Type Severity Reaction Status Date / Time latex Allergy Itching Verified 09/29/23 15:15 naproxen Allergy Unknown Verified 09/29/23 15:15 Penicillins [PCN] Allergy Rash Verified 09/29/23 15:15 escitalopram [From Lexapro] AdvReac Intermediate Lightheaded Verified 09/29/23 15:15 sertraline [From Zoloft] AdvReac Intermediate Dizzy & Verified 09/29/23 15:15 Headache dicyclomine [From Bentyl] AdvReac Unknown Unknown Verified 09/29/23 15:15 hydrocodone [From Vicodin] AdvReac Other Verified 09/29/23 15:15 ketorolac [From Toradol] AdvReac Other Verified 09/29/23 15:15 Family History Grandmother Diabetes Other Family history of skin cancer High cholesterol Hypertension Surgical History History of carpal tunnel surgery of right wrist History of surgery on arm History of surgery on lower extremity History of thyroidectomy History of total vaginal hysterectomy (TVH) (~03/22/22) Status post incision and drainage (~04/15/22) Social History Smoking Status: Current every day smoker tobacco type: cigarettes Tobacco: How many years used: 13 Electronic Cigarette Use: not used second hand exposure: No alcohol intake: current alcohol intake frequency: holidays/special occasions only substance use type: does not use caffeine: Yes what type of physical activity do you participate in: none seatbelt use: always do you feel safe at home: Yes additional social history: emmy [place]IL[place] ED Constitutional Constitutional ED: Denies chills, fever(s), subjective, sweats or weight loss Eyes Eyes: Denies blurry vision or change in vision ENT ENT ED: Reports sore throat; Denies ear pain or rhinorrhea Cardiovascular Cardiovascular: Denies chest pain, palpitations or racing heartbeat Respiratory/Chest Respiratory/Chest: Denies cough, dyspnea or dyspnea on exertion Musculoskeletal Musculoskeletal: Reports neck pain and other Details: Patient does have limited range of motion of her neck with flexion as well as rotation to the right and left. ; Denies arthralgias, back pain or myalgias Neurologic Neurologic: Denies paresthesias or weakness Hematologic/Lymphatic Hematologic/Lymphatic: Denies easy bleeding or easy bruising Allergic/Immunologic Allergic/Immunologic ED: Reports mouth swelling and tongue swelling EXAM Physical Exam Const Vital Signs: 09/29/23 15:14 09/29/23 15:36 Temperature 97 F L Temperature Source Temporal Pulse Rate 65 Respiratory Rate 16 Respiratory Effort Normal Non-Labored Respiratory Pattern Normal Blood Pressure 149/90 H Blood Pressure Mean 109 Pulse Ox 100 Oxygen Delivery Method Room Air Positive well nourished and well developed Constitutional Narrative: Patient appears in no distress. Vital signs remarkable for elevated blood pressure. Urgent care visits and outpatient office visits indicates she has high blood pressure. She is on amlodipine. General Appearance ED: well developed; Negative for pallor HEENT Reports moist mucous membranes HEENT Narrative: Ears normal. External auditory canal has mild wax right and left. TMs are normal. Nares patent. Posterior pharynx is unremarkable. Uvula is midline. There is no evidence of angioedema. There is no postnasal drainage seen. Eyes PERRL and EOMs intact bilaterally General Eye ED: Negative for pale conjunctiva or scleral icterus Neck no lymphadenopathy, No supple and no JVD Neck Narrative: There is no meningeal findings. Patient has limited range of motion due to posterior neck pain left greater than right. There is pain to palpation. There is no cervical lymphadenopathy. Trachea is midline. There is no inspiratory or expiratory stridor. Resp normal respiratory effort and clear to auscultation bilaterally Cardio regular rate, regular rhythm, S1 normal heart sound, S2 normal heart sound and no murmurs Extremity normal to inspection Extremity Narrative: Axillary, median, radial and ulnar function intact. Bicep, brachialis and tricep reflex are 1+ and symmetric. Radial pulses symmetric. Neuro oriented x3 and CN's II-XII intact bilaterally Sensorium / Orientation: alert Psych Psych Narrative: Patient is slightly anxious. She seemed nervous about heart questions I asked. Skin no rashes or lesions noted, no wounds and skin turgor normal General Skin Exam: Negative for jaundice or pallor MDM MDM MDM Narrative Medical decision making narrative: Suspect patient's limited range of motion is due to degenerative disc disease and cervical myofascial pain. Patient reports allergy to Toradol. Listed as other. She also was told she should not take anti-inflammatories since she is on an anti-inflammatory. Soft tissue x-ray of the neck was obtained to assess the prevertebral space as well as the epiglottis and lingular tonsils. CBC to assess for atypical lymphocytes which would indicate mononucleosis. Lab Data Attestation: I reviewed the patient's lab results. Lab results narrative: CBC is normal. Differential is normal. Labs: Laboratory Results - last 24 hr 09/29/23 15:50 WBC 5.8 RBC 5.16 Hgb 14.4 Hct 44.4 MCV 86.0 MCH 27.9 MCHC 32.4 RDW Std Deviation 41.2 RDW Coeff of Mikel 13.2 Plt Count 173 MPV 10.6 Immature Gran % (Auto) 0.300 Neut % (Auto) 59.6 Lymph % (Auto) 26.8 [place] % (Auto) 9.4 Eos % (Auto) 3.4 Baso % (Auto) 0.5 Absolute Neuts (auto) 3.5 Absolute Lymphs (auto) 1.56 Nucleated RBC % 0 Radiography Chest X-Ray - ED: 2 View and Read by ED Physician (2 view x-ray of the soft tissue neck at 1607 interpreted by me as negative. Epiglottis is normal. Lingular tonsils are normal. Prevertebral space is normal. Parapharyngeal spaces without swelling either.) Treatment and Re-Evaluation :: Patient was told her x-ray and laboratory tests are negative. Suspect her posterior neck pain is due to degenerative disc disease and cervical myofascial strain. Recommend ice and continue taking her NSAID. With regards to the throat pain cause is unknown. Discharge Plan Triage Chief Complaint: Other, Pain/Inj ED Provider: Sorin Jacobs Dx/Rx/DC Orders Clinical Impression: Pain in throat, Cervical myofascial strain, Degenerative cervical disc Instructions: ED Neck Sprain or Strain, ED Pain, Acute, Uncertain Cause Prescriptions: No Action hydroxyzine pamoate 50 mg capsule 50 mg PO TID PRN (Reason: anxiety) Qty: 20 0RF (DME) compress.stocking,knee,reg,lrg Misc See Rx Instructions .MEDSUPPLY Qty: 2 1RF Rx Instructions: wear daily for venous insufficiency 20-30 mmHg tirzepatide 2.5 mg/0.5 mL pen injector 2.5 mg subcut QWEEK 28 Days Qty: 2 1RF ondansetron [ondansetron] 4 mg tablet,disintegrating 8 mg PO Q8H PRN PRN (Reason: Nausea) Qty: 20 0RF albuterol sulfate 2.5 mg /3 mL (0.083 %) solution for nebulization 2.5 mg inhalation Q6H PRN (Reason: shortness of breath or wheezing) Qty: 90 1RF ketoprofen 75 mg capsule 75 mg PO Q6H PRN (Reason: Migraine Symptoms) Qty: 100 0RF Rx Instructions: 1 cap PO at on set of headache max of 3 in 24 hours, max 20 per month amlodipine 5 mg tablet 5 mg PO DAILY Qty: 90 1RF levothyroxine 137 mcg tablet 137 mcg PO DAILY Qty: 90 1RF prochlorperazine maleate [Compazine] 10 mg tablet 10 mg PO BID PRN (Reason: Migraine Symptoms) Qty: 30 1RF ursodiol 300 mg capsule 300 mg PO BID Qty: 180 1RF fluconazole 150 mg tablet 150 mg PO Q3D Qty: 2 0RF Rx Instructions: may repeat second dose 72 hrs after first dose if symptoms persist Primary Care Provider: Jose Alejandro London Referrals: Jose Alejandro London MD [Primary Care Provider] - 3-5 Days if not improving Activity Restrictions/Additional Instructions: 1. Apply ice 6-8 times a day 2. Avoid neck movement it causes you pain. 3. If you develop weakness in your hands or difficulty using your upper extremity return to the emergency room otherwise follow-up with your doctor Dr. London Disposition Disposition: Home, Self Care
--- NOTE | 2023-09-29 15:50 | RAD_ITS ---
EXAM: XR SOFT TISSUE NECK CLINICAL INDICATION: Throat swelling, recent strep throat TECHNIQUE: Frontal and lateral views of the soft tissues of the neck. COMPARISON: No relevant prior studies available. FINDINGS: AIRWAY: Unremarkable. Grossly patent. SOFT TISSUES: Unremarkable. No radiopaque foreign body. No pathologic thickening or enlargement of the epiglottis. RAD/Neck for Soft Tissue IMPRESSION: Negative neck x-rays. Electronically Signed: Samson Buchanan MD at 16:16 EDT ,
[2023-09-29 15:56] LABS: Absolute Lymphocyte Count 1.56 X10^3/uL (0.83-4.51); Absolute Neutrophil Count 3.5 X10^3/uL (2.0-7.7); Basophil# 0.03 X10^3/uL; Basophil% 0.5 % (0-1); Eosinophils% 3.4 % (0-5); Hematocrit 44.4 % (37-47); Hemoglobin 14.4 g/dL (12.0-15.0); Lymphocyte # 1.56 X10^3/ul (0.83-4.51); Lymphocyte % 26.8 % (19-41); Mean Corp Hgb Conc 32.4 g/dL (32-36); Mean Corpuscular Hgb 27.9 pg (27.0-32.0); Mean Platelet Vol. 10.6 fl (6.2-12.0); Monocyte# 0.55 X10^3/uL; Monocyte% 9.4 % (0-10); NRBC Flagged by Analyzer 0 % (0-5); Neutrophil # 3.47 X10^3/uL (2.7-7.7); Neutrophil % 59.6 % (47-70); Platelet Count 173 K/mm3 (150-450); RBC Distribution Width CV 13.2 % (11.6-14.6); RBC Distribution Width SD 41.2 fl (35.1-43.9); Red Blood Count 5.16 M/mm3 (4.2-5.4); White Blood Count 5.8 K/mm3 (4.4-11.0)
[2023-09-29] MEDS: Acetaminophen 325 MG Tablet 650 MG PO (16:41)
== END 2023-09-29 16:45 | disposition home or self-care (01) ==
PROVIDERS: Emergency Provider Emergency Medicine; PCP Internal Medicine; Visit Provider Emergency Medicine
DX: S16.1XXA Strain of muscle, fascia and tendon at neck level, initial encounter (principal); N64.4 Mastodynia; M54.9 Dorsalgia, unspecified; M50.30 Other cervical disc degeneration, unspecified cervical region; I10 Essential (primary) hypertension; G89.29 Other chronic pain; Z88.0 Allergy status to penicillin; F17.210 Nicotine dependence, cigarettes, uncomplicated; Z79.890 Hormone replacement therapy; Z79.899 Other long term (current) drug therapy
CPT/HCPCS: 70360; 76642; 77062; 77066; 85025; 99283; A4216; G0279

== ENCOUNTER → 2023-09-29 | Outpatient (CLI) | payer MEDICAID, SELFPAY ==
--- NOTE | 2023-09-29 09:38 | US_ITS ---
STUDY: ULTRASOUND BREAST - RIGHT REASON FOR EXAM: Female, 38 years old. Pain in the right breast. TECHNIQUE: Axial and longitudinal images of the RIGHT breast were performed with a high resolution ultrasound transducer. # OF IMAGES: 21 COMPARISON: Comparison is made with prior mammogram done earlier in the day as well as prior sonogram of the right breast dated April 11, 2023. FINDINGS: RIGHT Breast: The upper outer quadrant of the right breast was examined with ultrasound. No sonographic abnormality is seen. US/Breast Limited Unilateral IMPRESSION: No sonographic abnormality is seen. ASSESSMENT CATEGORY: BIRADS Category 1: Negative. A letter regarding these results will be sent to the patient by the facility within 30 days. Electronically Signed: Christiano Eduardo MD at 10:56 EDT ,
--- NOTE | 2023-09-29 09:38 | BI_ITS ---
MAMMOGRAPHY - BILATERAL DIAGNOSTIC REASON FOR EXAM: Female, 38 years old. Upper right breast pain. PERTINENT HISTORY: Non-contributory. TECHNIQUE: Digital bilateral breast marla (3D mammographic acquisition) in the CC and MLO projections. 2-D mediolateral oblique (MLO) and craniocaudad (CC) views of both breasts were obtained. CAD: Full Field Digital Mammography with Computer Added Detection was performed. COMPARISON: Comparison is made with prior study dated April 11, 2023 and September 23, 2021. FINDINGS: Breast Composition: There are scattered areas of fibroglandular density. There are no dominant masses or suspicious calcifications. Stable bilateral fat containing axillary lymph nodes. No other significant abnormalities are identified. There has been no significant change since the prior study. BI/DIAG MAMM W/CAD, BILAT IMPRESSION: Stable bilateral diagnostic mammogram. With the patient''s history of pain in the upper-outer quadrant of right breast, correlation with ultrasound is recommended. ASSESSMENT CATEGORY: BIRADS Category 0: Incomplete. Need additional imaging evaluation. A letter regarding these results will be sent to the patient by the facility within 30 days. Approximately 10% of breast cancers are not detected by mammography. A normal mammogram should not delay biopsy of a clinically suspicious abnormality. Electronically Signed: Christiano Eduardo MD at 13:12 EDT ,
== END | disposition home or self-care (01) ==
LOC: OPBI 09:37
PROVIDERS: PCP Internal Medicine; Referring Provider Internal Medicine; Visit Provider Internal Medicine
DX: N64.4 Mastodynia (principal)
CPT/HCPCS: 76642; 77062; 77066; G0279

== ENCOUNTER 2023-10-26 13:55 | Emergency (ER) | payer MEDICAID, SELFPAY ==
[2023-10-26 13:56] VITALS: BP 106/65; BP 148/87; PULSE 73; PULSE 96; RESP 16; RESP 20; TEMP 36.2; O2SAT 98; BMI 82.5
--- NOTE | 2023-10-26 14:41 | EDS_ITS ---
HPI History of Present Illness Chief Complaint: Chest Pain Informant: patient Narrative Narrative: 38-year-old female presenting to the emergency room chief complaint of chest pain. Patient states for the past couple days she has had intermittent pain in left side of her chest. States that initially started with a burning intermittent gas-like pain in her epigastrium. This is rated up into her midsternal area. It did not get relieved by Tums. She states that then she began to have intermittent pain in the left side of her chest just underneath her breast. Stated more in the cartilaginous portion of the chest wall. Today however it seems to wrap more towards the posterior aspect along the same rib line. States she chronically has tingling in her left shoulder but seems like it might be worse over the past couple days. She denies cough or shortness of breath. She is a smoker. Patient has a history of obstructive sleep apnea type 2 diabetes metabolic syndrome fibromyalgia MARCELINO. [facility] Medical History Breast pain, right Contact with or exposure to other viral diseases Dermatitis PONV (postoperative nausea and vomiting) Leg cramps Anxiety and depression Left shoulder pain Depression Chronic pain Cancer Arthritis Fatty liver Easy bruising Restless legs Back pain Injury of head and neck Syncope Fibromyalgia History of pain when walking Hypertension History of echocardiogram History of stress test Cardiology follow-up encounter Localized swelling, mass and lump, neck Cervical lymphadenopathy Heartburn Chronic RUQ pain Right femoral fracture Tinnitus Vertigo Ectopic cardiac beats Palpitations MARCELINO (nonalcoholic steatohepatitis) RUQ abdominal pain Cervical radiculopathy Chronic back pain Left-sided low back pain with left-sided sciatica Hypocalcemia Tobacco abuse Bronchitis Morbid obesity Post herpetic neuralgia NICOLÁS (generalized anxiety disorder) ADHD (attention deficit hyperactivity disorder), combined type Numbness and tingling of both upper extremities Numbness of both lower extremities Migraine without aura and with status migrainosus, not intractable History of gestational diabetes Almaz's thyroiditis History of acne Thyroid disease Melanoma Home Medications ?Medication ?Instructions ?Recorded ?Last Taken ?Type hydroxyzine pamoate 50 mg capsule 50 mg PO TID PRN anxiety #20 caps 05/30/22 Unknown Rx albuterol sulfate 2.5 mg/3 mL 2.5 mg (3 mL) inhalation Q6H PRN 02/06/23 Unknown Rx (0.083 %) solution for nebulization shortness of breath or wheezing #90 mL compress.stocking,knee,reg,lrg #2 ea 04/19/23 Unknown Rx ketoprofen 75 mg capsule 75 mg PO Q6H PRN Migraine Symptoms 05/17/23 Unknown Rx #100 caps amlodipine 5 mg tablet 5 mg PO DAILY bp #90 tabs 07/25/23 Unknown Rx levothyroxine 137 mcg tablet 137 mcg PO DAILY synthroid #90 tabs 07/25/23 Unknown Rx ondansetron 4 mg disintegrating 8 mg (2 x 4 mg) PO Q8H PRN PRN 07/26/23 Unknown Rx tablet Nausea #20 tabs prochlorperazine maleate 10 mg 10 mg PO BID PRN Migraine Symptoms 08/09/23 Unknown Rx tablet (Compazine) #30 tabs ursodiol 300 mg capsule 300 mg PO BID #180 caps 08/22/23 Unknown Rx fluconazole 150 mg tablet 150 mg PO Q3D 2 doses #2 tabs 09/07/23 Unknown Rx tirzepatide 2.5 mg/0.5 mL 2.5 mg (0.5 mL) subcut QWEEK 4 09/11/23 Unknown Rx subcutaneous pen injector weeks #2 mL Allergy/AdvReac Type Severity Reaction Status Date / Time latex Allergy Itching Verified 09/29/23 15:15 naproxen Allergy Unknown Verified 09/29/23 15:15 Penicillins (PCN) Allergy Rash Verified 09/29/23 15:15 escitalopram (From Lexapro) AdvReac Intermediate Lightheaded Verified 09/29/23 15:15 sertraline (From Zoloft) AdvReac Intermediate Dizzy & Verified 09/29/23 15:15 Headache dicyclomine (From Bentyl) AdvReac Unknown Unknown Verified 09/29/23 15:15 hydrocodone (From Vicodin) AdvReac Other Verified 09/29/23 15:15 ketorolac (From Toradol) AdvReac Other Verified 09/29/23 15:15 Family History Grandmother Diabetes Other Family history of skin cancer High cholesterol Hypertension Surgical History History of carpal tunnel surgery of right wrist History of surgery on lower extremity Status post incision and drainage (~04/15/22) History of total vaginal hysterectomy (TVH) (~03/22/22) History of thyroidectomy History of surgery on arm Social History Smoking Status: Current every day smoker tobacco type: cigarettes Tobacco: How many years used: 13 Electronic Cigarette Use: not used second hand exposure: No alcohol intake: current alcohol intake frequency: holidays/special occasions only substance use type: does not use caffeine: Yes what type of physical activity do you participate in: none seatbelt use: always do you feel safe at home: Yes additional social history: emmy [place] ED Constitutional Constitutional ED: Denies chills, fever(s) or weight loss Eyes Eyes: Denies change in vision or diplopia ENT ENT ED: Denies ear pain, rhinorrhea or sore throat Cardiovascular Cardiovascular: Reports chest pain; Denies orthopnea, palpitations or racing heartbeat Respiratory/Chest Respiratory/Chest: Denies cough, dyspnea or orthopnea Gastrointestinal Gastrointestinal: Denies abdominal pain, diarrhea, nausea or vomiting Genitourinary Genitourinary ED: Denies dysuria, hematuria or urinary frequency Musculoskeletal Musculoskeletal: Denies arthralgias, back pain, myalgias or neck pain Integumentary Denies abscess or rash Neurologic Neurologic: Denies headache(s) or weakness Psychiatric Psychiatric: Denies anxiety, depression, suicidal ideation or suicidal thoughts Endocrine Endocrinology: Denies polydipsia, polyphagia or polyuria Allergic/Immunologic Allergic/Immunologic ED: Denies mouth swelling, tongue swelling or urticaria EXAM Physical Exam Const Vital Signs: 10/26/23 13:56 10/26/23 13:56 10/26/23 14:55 Temperature 97.2 F L Temperature Source Temporal Pulse Rate 96 73 Respiratory Rate 20 H 16 Respiratory Effort Normal Non-Labored Blood Pressure 148/87 H 106/65 Blood Pressure Mean 107 78 Pulse Ox 98 Oxygen Delivery Method Room Air 10/26/23 14:56 10/26/23 15:00 10/26/23 16:00 Temperature Temperature Source Pulse Rate 80 87 88 Respiratory Rate 19 H 19 H 18 Respiratory Effort Blood Pressure 99/51 L 115/73 121/72 H Blood Pressure Mean 67 87 88 Pulse Ox 99 98 100 Oxygen Delivery Method Room Air Room Air Room Air Positive well nourished, well developed and obese General Appearance ED: well developed Nutritional Appearance: obese HEENT Reports normocephalic, head/scalp atraumatic and moist mucous membranes Eyes PERRL and EOMs intact bilaterally Neck no lymphadenopathy, supple and no JVD Chest Wall Chest Narrative: Patient exquisitely tender at the costochondral junction of the left anterior ribs just underneath the breast. I do not appreciate any rash in the area. Resp normal respiratory effort and clear to auscultation bilaterally Cardio regular rate, regular rhythm and no murmurs GI normal to inspection, nondistended, normoactive bowel sounds and non-tender Palpation: soft Back/Spine no CVA tenderness and normal ROM Extremity normal to inspection General Extremety ED: Negative for edema General Extremity: Negative for edema Neuro oriented x3 and CN's II-XII intact bilaterally Sensorium / Orientation: alert Motor Exam: strength 5/5 throughout Psych mental status grossly normal Mood & Affect: Negative for depressed or tearful Skin no rashes or lesions noted and no wounds MDM MDM MDM Narrative Medical decision making narrative: Differential diagnosis includes but not limited to GERD ACS pulmonary embolism aortic dissection aneurysm pneumothorax pneumonia costochondritis rib strain muscle strain Interpretation of the chest x-ray is no acute process. Radiology encouraged. White count 5.3 hemoglobin 13.6. D-dimer slightly elevated 0.73. She is 38 years old therefore is not age-adjusted. Her troponin is less than 3. BMP within normal limits. Because of the elevated D-dimer and lack of symptoms a CTA of the chest was obtained. This demonstrates bibasilar atelectatic changes but no pulmonary embolism noted. Patient's had no dysrhythmias on the monitor. Troponin is less than 3 with a multiday history of symptoms. Clinically I think the patient's pain is most likely musculoskeletal in nature. Will have her use anti-inflammatories. Follow-up with primary care if not improving return if worsening or concerns History & Record Review Discussion w/independent historian: Patient Additional record(s) reviewed:: Prior labs Lab Data Attestation: I reviewed the patient's lab results. Labs: Laboratory Results - last 24 hr 10/26/23 14:50 WBC 5.3 RBC 4.88 Hgb 13.6 Hct 42.2 MCV 86.5 MCH 27.9 MCHC 32.2 RDW Std Deviation 41.5 RDW Coeff of Mikel 13.2 Plt Count 176 MPV 11.3 Immature Gran % (Auto) 0.400 Neut % (Auto) 60.9 Lymph % (Auto) 24.2 [place] % (Auto) 10.3 H Eos % (Auto) 3.6 Baso % (Auto) 0.6 Absolute Neuts (auto) 3.2 Absolute Lymphs (auto) 1.27 Nucleated RBC % 0 D-Dimer Quant (PE/DVT) 0.73 H* Sodium 138 Potassium 3.7 Chloride 108 H Carbon Dioxide 26.0 Anion Gap 4 L BUN 9 Creatinine 0.71 Estim Creat Clear Calc 222.00 Est GFR (MDRD) Af Amer 120 Est GFR (MDRD) Non-Af 99 BUN/Creatinine Ratio 12.7 Glucose 95 Calcium 9.2 Troponin I High Sens < 3 L Radiography Diagnostic Testing: Clinical Impression(s) from Imaging Studies Chest X-Ray 10/26/23 15:00 IMPRESSION: Stable mild tenting of the lateral aspect of the right hemidiaphragm. Electronically Signed: Christiano Eduardo MD at 15:12 EDT , Chest CTA 10/26/23 15:32 IMPRESSION: Minor subsegmental atelectasis in both lower lobes. No evidence for pulmonary embolus. Electronically Signed: Nima Castro MD at 16:21 EDT , EKG Initial EKG: Attestation: I personally reviewed and interpreted this EKG as follows: Comments: Normal sinus rhythm with a ventricular rate of 90 bpm. No concerning features of ACS noted Discharge Plan Triage Chief Complaint: Chest Pain ED Provider: Germán Kulkarni Dx/Rx/DC Orders Prescriptions: No Action hydroxyzine pamoate 50 mg capsule 50 mg PO TID PRN (Reason: anxiety) Qty: 20 0RF (DME) compress.stocking,knee,reg,lrg Misc See Rx Instructions .MEDSUPPLY Qty: 2 1RF Rx Instructions: wear daily for venous insufficiency 20-30 mmHg tirzepatide 2.5 mg/0.5 mL pen injector 2.5 mg subcut QWEEK 28 Days Qty: 2 1RF ondansetron [ondansetron] 4 mg tablet,disintegrating 8 mg PO Q8H PRN PRN (Reason: Nausea) Qty: 20 0RF albuterol sulfate 2.5 mg /3 mL (0.083 %) solution for nebulization 2.5 mg inhalation Q6H PRN (Reason: shortness of breath or wheezing) Qty: 90 1RF ketoprofen 75 mg capsule 75 mg PO Q6H PRN (Reason: Migraine Symptoms) Qty: 100 0RF Rx Instructions: 1 cap PO at on set of headache max of 3 in 24 hours, max 20 per month amlodipine 5 mg tablet 5 mg PO DAILY Qty: 90 1RF levothyroxine 137 mcg tablet 137 mcg PO DAILY Qty: 90 1RF prochlorperazine maleate [Compazine] 10 mg tablet 10 mg PO BID PRN (Reason: Migraine Symptoms) Qty: 30 1RF ursodiol 300 mg capsule 300 mg PO BID Qty: 180 1RF fluconazole 150 mg tablet 150 mg PO Q3D Qty: 2 0RF Rx Instructions: may repeat second dose 72 hrs after first dose if symptoms persist Primary Care Provider: Jose Alejandro London Referrals: Jose Alejandro London MD [Primary Care Provider] - Print Language: Somali
[2023-10-26 14:56] VITALS: BP 99/51; PULSE 80; RESP 19; O2SAT 99
[2023-10-26 15:00] VITALS: BP 115/73; PULSE 87; RESP 19; O2SAT 98
[2023-10-26 15:00] LABS: Absolute Lymphocyte Count 1.27 X10^3/uL (0.83-4.51); Absolute Neutrophil Count 3.2 X10^3/uL (2.0-7.7); Basophil# 0.03 X10^3/uL; Basophil% 0.6 % (0-1); Eosinophil# 0.19 X10^3/uL; Eosinophils% 3.6 % (0-5); Hematocrit 42.2 % (37-47); Hemoglobin 13.6 g/dL (12.0-15.0); Lymphocyte # 1.27 X10^3/ul (0.83-4.51); Lymphocyte % 24.2 % (19-41); Mean Corp Hgb Conc 32.2 g/dL (32-36); Mean Corpuscular Hgb 27.9 pg (27.0-32.0); Mean Corpuscular Volume 86.5 fL (81-99); Mean Platelet Vol. 11.3 fl (6.2-12.0); Monocyte# 0.54 X10^3/uL; Monocyte% 10.3 % (0-10); NRBC Flagged by Analyzer 0 % (0-5); Neutrophil % 60.9 % (47-70); Platelet Count 176 K/mm3 (150-450); RBC Distribution Width CV 13.2 % (11.6-14.6); RBC Distribution Width SD 41.5 fl (35.1-43.9); Red Blood Count 4.88 M/mm3 (4.2-5.4); White Blood Count 5.3 K/mm3 (4.4-11.0)
--- NOTE | 2023-10-26 15:00 | RAD_ITS ---
STUDY: X-RAY CHEST REASON FOR EXAM: Female, 38 years old. Chest pain TECHNIQUE: Single AP portable view of the chest. COMPARISON: Comparison is made with prior study April 17, 2023. FINDINGS: EKG electrodes are seen. Stable mild increased markings in the lateral aspect of the right lung base suggests with tenting of the lateral portion of the right hemidiaphragm. There is no demonstrated pleural abnormality. Normal size heart. Normal mediastinum and tho. Normal visualized pulmonary arteries. Normal visualized aortic arch and descending thoracic aorta. Normal visualized thoracic spine. Normal visualized ribs, clavicles, and shoulders. There is no demonstrated abnormality of the visualized soft tissue structures of the upper abdomen. RAD/Chest 1 View (Portable) IMPRESSION: Stable mild tenting of the lateral aspect of the right hemidiaphragm. Electronically Signed: Christiano Eduardo MD at 15:12 EDT ,
[2023-10-26 15:25] LABS: D-Dimer Quantitative (DVT/PE) 0.73 FEU/ug/m (0.27-0.49)
[2023-10-26 15:31] LABS: Anion Gap 4 (5-15); BUN 9 mg/dL (7-18); BUN/Creat Ratio 12.7 RATIO (10-20); Calcium,Total 9.2 mg/dL (8.5-10.1); Chloride 108 mmol/L (98-107); Creatinine, Serum 0.71 mg/dL (0.55-1.02); EST Glomerular Filtration Rate 99 mL/min (>60); Est Glom Filt Rate - Afr Amer 120 mL/min (>60); Glucose 95 mg/dL (74-106); Potassium 3.7 mmol/L (3.5-5.1); Sodium Level 138 mmol/L (136-145); Troponin-I HS (w/2H Reflex) < 3 pg/mL (3.0-54.0)
--- NOTE | 2023-10-26 15:32 | CT_ITS ---
STUDY: CTA CHEST REASON FOR EXAM: Female, 38 years old. pulmonary embolism, elevated d dimer RADIATION DOSAGE (If Supplied By Facility): CTDIvol = ( 11.34 ) mGy, DLP = ( 483.85 ) mGycm TECHNIQUE: The examination was performed with the intravenous administration of IV 100mL Isovue-370. Post-processing of the angiographic images was performed, with multiplanar reformation and 3D reconstruction. Individualized dose optimization techniques were used for this CT. COMPARISON: April 12, 2022. FINDINGS: Normal enhancement of the main pulmonary artery and right and left pulmonary arteries. Normal enhancement of the bilateral peripheral pulmonary arteries. There is no demonstrated pulmonary embolism. Normal thoracic aorta and visualized great vessels. There is no demonstrated aortic dissection. Normal heart and pericardium. Normal mediastinum. Normal hilar regions. Normal visualized trachea and bronchi. The lungs are well expanded. Minor subsegmental atelectasis in both lower lobes slightly more pronounced on the right.. No focal infiltration or pulmonary nodules Normal pleura. Normal chest wall structures. Dorsal spine demonstrates degenerative changes. Normal visualized upper abdomen. CT/CTA Chest W/WO Contrast IMPRESSION: Minor subsegmental atelectasis in both lower lobes. No evidence for pulmonary embolus. Electronically Signed: Nima Castro MD at 16:21 EDT ,
[2023-10-26 16:00] VITALS: BP 121/72; PULSE 88; RESP 18; O2SAT 100
[2023-10-26 16:51] VITALS: BP 118/73; PULSE 90; RESP 17; TEMP 36.2; O2SAT 100
[2023-10-26 16:56] LABS: Reflex Troponin-HS? (from REC) Y
== END 2023-10-26 16:55 | disposition home or self-care (01) ==
PROVIDERS: Emergency Provider Emergency Medicine; PCP Internal Medicine; Visit Provider Emergency Medicine
DX: R07.9 Chest pain, unspecified (principal); E11.9 Type 2 diabetes mellitus without complications; F17.210 Nicotine dependence, cigarettes, uncomplicated; G47.33 Obstructive sleep apnea (adult) (pediatric); E88.810 Metabolic syndrome; M79.7 Fibromyalgia; K75.81 Nonalcoholic steatohepatitis (NASH); E06.3 Autoimmune thyroiditis; Z79.899 Other long term (current) drug therapy; Z79.890 Hormone replacement therapy
CPT/HCPCS: 71045; 71275; 80048; 84484; 85025; 85379; 93005; 99284; Q9967; A4216

== ENCOUNTER 2023-11-13 14:27 | Emergency (ER) | payer MEDICAID, SELFPAY ==
[2023-11-13 14:27] VITALS: BP 115/78; BP 96/77; PULSE 84; PULSE 86; RESP 14; TEMP 36.6; O2SAT 98; O2SAT 99; BMI 38.9
--- NOTE | 2023-11-13 14:44 | ED.RN ---
IM JUST GOING TO LEAVE, THEYRE NOT BEHAVING. PT LEFT D/T HER CHILDREN NOT BEHAVING.
== END 2023-11-13 14:44 | disposition left against medical advice (07) ==
PROVIDERS: PCP Internal Medicine
DX: M54.2 Cervicalgia (principal); Z53.21 Procedure and treatment not carried out due to patient leaving prior to being seen by health care provider

== ENCOUNTER → 2023-11-27 | Outpatient (CLI) | payer MEDICAID, SELFPAY ==
--- NOTE | 2023-11-27 10:35 | RAD_ITS ---
STUDY: X-RAY - RIGHT FOOT CLINICAL: Female, 38 years old. Pain TECHNIQUE: 3 view(s) of the foot. COMPARISON: None. FINDINGS: Calcaneal spurs. Normal visualized subtalar, talonavicular, calcaneocuboid, tarsal and tarsometatarsal articulations. Normal metatarsi. Normal metatarsophalangeal joint of the great toe. Normal tibial and fibular sesamoid bones. Normal interphalangeal joint of the great toe. Normal phalanges of the great toe. Normal second through fifth metatarsophalangeal joints. Normal interphalangeal joints and phalanges of the lesser toes. The soft tissue structures are unremarkable. RAD/Foot min 3 Views IMPRESSION: Calcaneal Spurs. No acute abnormality is seen. Electronically Signed: Christiano Eduardo MD at 11:05 EDT ,
--- NOTE | 2023-11-27 10:35 | RAD_ITS ---
STUDY: X-RAY - RIGHT ANKLE REASON FOR EXAM: Female, 38 years old. Pain and swelling. TECHNIQUE: view(s) of the ankle. COMPARISON: None. FINDINGS: Normal visualized distal tibia and fibula. Normal medial and lateral malleoli. Normal tibiotalar articulation and ankle mortise. Calcaneal spurs. The visualized subtalar, talonavicular, calcaneocuboid and tarsal articulations are normal. Diffuse soft tissue swelling. RAD/Ankle min 3 Views IMPRESSION: Diffuse soft tissue swelling. Electronically Signed: Christiano Eduardo MD at 11:05 EDT ,
== END | disposition home or self-care (01) ==
PROVIDERS: PCP Internal Medicine; Referring Provider Physician Assistant; Visit Provider Physician Assistant
DX: M25.571 Pain in right ankle and joints of right foot (principal)
CPT/HCPCS: 73610; 73630

== ENCOUNTER 2023-12-11 11:36 | Emergency (ER) | payer MEDICAID, SELFPAY ==
[2023-12-11 11:39] VITALS: BP 113/80; PULSE 97; RESP 16; TEMP 36.8; BMI 38.9
[2023-12-11 13:36] VITALS: BP 114/67; PULSE 78; RESP 18; O2SAT 99
--- NOTE | 2023-12-11 13:55 | ED.RN ---
Patient irritated/frustrated that she has not been seen by a doctor. Updated her that her chart is coming up soon, charge nurse informed
--- NOTE | 2023-12-11 14:14 | CT_ITS ---
INDICATION: right sided abd pain EXAMINATION: CT ABDOMEN AND PELVIS WITH CONTRAST - CT Abdomen And Pelvis W/ Contrast Injection TECHNIQUE: Helically acquired images were obtained of the abdomen and pelvis following IV contrast. A radiation dose optimization technique was used for this scan. IV Contrast dosage and agent: 100 cc Isovue-300 Oral contrast: None. COMPARISON: 07/25/2023 FINDINGS: LOWER CHEST: Mild bibasilar dependent and/or fibrotic changes. No cardiomegaly or pericardial effusion. LIVER: Enlargement to 21 cm. No concerning focal mass. GALLBLADDER AND BILIARY TREE: No calcified gallstones. No gallbladder distension or wall edema. No intra- or extrahepatic biliary ductal dilation. PANCREAS: No focal cystic or solid mass. SPLEEN: Mild splenomegaly. ADRENAL GLANDS: No nodules. KIDNEYS AND URETERS: Normal renal size and position. No hydronephrosis. PERITONEUM: No ascites or free air. BOWEL: Normal appendix. No stomach or bowel distension. No focal inflammatory change. LYMPH NODES: Stable cluster of mildly enlarged mesenteric nodes in the right lower quadrant. VESSELS: Aorta is non-dilated. URINARY BLADDER: Unremarkable. REPRODUCTIVE ORGANS: Uterus absent. Decreased size right ovarian cyst, 2.8 cm compared to previous 4.5 cm. BONES: No acute or aggressive abnormality. Partially imaged right femoral fixator again noted. CT/Abdomen/Pelvis W IV Cont ONLY IMPRESSION: Stable enlarged right lower quadrant mesenteric lymph nodes, possible mesenteric adenitis in the appropriate clinical setting. Decreasing size right ovarian cyst. Hepatosplenomegaly. Electronically Signed: Lorne Cooper MD at 18:02 EDT ,
[2023-12-11] MEDS: 0.9% Normal Saline (1000mL) 1,000 ML 150 ML IV (14:25)
[2023-12-11 14:31] LABS: Absolute Lymphocyte Count 1.17 X10^3/uL (0.83-4.51); Absolute Neutrophil Count 2.4 X10^3/uL (2.0-7.7); Basophil# 0.02 X10^3/uL; Basophil% 0.5 % (0-1); Hematocrit 42.5 % (37-47); Hemoglobin 14.2 g/dL (12.0-15.0); Lymphocyte # 1.17 X10^3/ul (0.83-4.51); Lymphocyte % 29.2 % (19-41); Mean Corp Hgb Conc 33.4 g/dL (32-36); Mean Corpuscular Hgb 28.6 pg (27.0-32.0); Mean Corpuscular Volume 85.7 fL (81-99); Mean Platelet Vol. 11.6 fl (6.2-12.0); Monocyte# 0.24 X10^3/uL; NRBC Flagged by Analyzer 0 % (0-5); Neutrophil # 2.37 X10^3/uL (2.7-7.7); Neutrophil % 59.1 % (47-70); Platelet Count 160 K/mm3 (150-450); RBC Distribution Width CV 12.5 % (11.6-14.6); RBC Distribution Width SD 39.1 fl (35.1-43.9); Red Blood Count 4.96 M/mm3 (4.2-5.4)
[2023-12-11 14:33] LABS: Red Blood Cells-Urine 0 SEEN /hpf (0-5)
[2023-12-11] MEDS: oxyCODONE 5 MG Tablet PO (14:33)
[2023-12-11 14:39] LABS: Color, Urine Yellow (Yellow); Glucose, Dipstick 50 mg/dl (Normal); Ketone-Dipstick Negative (Negative); Leukocyte Esterase-Dipstick 25 /ul (Negative); Nitrite-Dipstick Negative (Negative); Occult Blood-Urine Negative /ul (Negative); Protein-Dipstick 15 mg/dl (Negative); Specific Gravity, Urine 1.015 (1.002-1.030); Urine Bilirubin Dipstick Negative (Negative); Urine Clarity Sl. Cloudy (Clear); Urine Urobilinogen Normal (Normal); Urine pH 6.5 (5.0 - 8.0)
[2023-12-11 14:47] LABS: Mucous, Urine 1+ /hpf (<or=2+); Squamous Epithelial Cells - UA 5-10 SEEN /hpf (5-10); White Blood Cells 0-5 SEEN /hpf (0-5)
[2023-12-11 14:48] LABS: Bacteria 1+ /hpf (None Seen)
[2023-12-11 14:59] VITALS: BP 128/72; PULSE 78; RESP 18; O2SAT 97
[2023-12-11 16:38] LABS: AST(SGOT) 16 U/L (15-37); Alanine Aminotransfer ALT/SGPT 31 U/L (13-56); Albumin, Serum 3.3 g/dL (3.2-5.0); Alkaline Phosphatase 65 U/L (45-117); BUN 9 mg/dL (7-18); Bilirubin, Direct 0.09 mg/dL (0.00-0.30); Calcium,Total 8.3 mg/dL (8.5-10.1); Creatinine, Serum 0.69 mg/dL (0.55-1.02); EST Glomerular Filtration Rate 102 mL/min (>60); Est Glom Filt Rate - Afr Amer 124 mL/min (>60); Estimated Creatinine Clearance 141.12 ml/min; Globulin 3.3 g/dL (2.2-4.2); Glucose 81 mg/dL (74-106); Lipase 37 U/L (13-75); Potassium 3.6 mmol/L (3.5-5.1); Protein, Total 6.6 g/dL (6.4-8.2); Sodium Level 138 mmol/L (136-145)
[2023-12-11 16:39] LABS: Anion Gap 5 (5-15); Chloride 106 mmol/L (98-107)
--- NOTE | 2023-12-11 16:51 | EX.ED.DYSGE1 ---
HPI History of Present Illness Chief Complaint: Abd Pain Informant: patient Onset/Context/Timing Onset: Weeks Narrative Narrative: Patient present secondary to right-sided abdominal pain. She is a history of chronic right upper quadrant pain and reports increased pain over the past 10 days. She also has pain in the right lower quadrant is concerned that she is another ovarian cyst. She denies urinary symptoms. She has had some nausea but no vomiting. She reports subjective fevers and chills but states her thermometer was not working at home. She did see the GI office recently and has further testing scheduled on the . [facility] Medical History Right foot sprain Right ankle sprain ADD (attention deficit disorder) Breast pain, right Contact with or exposure to other viral diseases Dermatitis PONV (postoperative nausea and vomiting) Leg cramps Anxiety and depression Left shoulder pain Depression Chronic pain Cancer Arthritis Fatty liver Easy bruising Restless legs Back pain Injury of head and neck Syncope Fibromyalgia History of pain when walking Hypertension History of echocardiogram History of stress test Cardiology follow-up encounter Localized swelling, mass and lump, neck Cervical lymphadenopathy Heartburn Chronic RUQ pain Right femoral fracture Tinnitus Vertigo Ectopic cardiac beats Palpitations RUQ abdominal pain Cervical radiculopathy Chronic back pain Left-sided low back pain with left-sided sciatica Hypocalcemia Tobacco abuse Bronchitis Morbid obesity Post herpetic neuralgia NICOLÁS (generalized anxiety disorder) ADHD (attention deficit hyperactivity disorder), combined type Numbness and tingling of both upper extremities Numbness of both lower extremities Migraine without aura and with status migrainosus, not intractable History of gestational diabetes Almaz's thyroiditis History of acne Thyroid disease Melanoma Home Medications ?Medication ?Instructions ?Recorded ?Last Taken ?Type hydroxyzine pamoate 50 mg capsule 50 mg PO TID PRN anxiety #20 caps 05/30/22 Unknown Rx albuterol sulfate 2.5 mg/3 mL 2.5 mg (3 mL) inhalation Q6H PRN 06/27/22 Unknown Rx (0.083 %) solution for nebulization shortness of breath or wheezing #90 mL compress.stocking,knee,reg,lrg #2 ea 04/19/23 Unknown Rx amlodipine 5 mg tablet 5 mg PO DAILY bp #90 tabs 07/25/23 Unknown Rx levothyroxine 137 mcg tablet 137 mcg PO DAILY synthroid #90 tabs 07/25/23 Unknown Rx ondansetron 4 mg disintegrating 8 mg (2 x 4 mg) PO Q8H PRN PRN 07/26/23 Unknown Rx tablet Nausea #20 tabs ursodiol 300 mg capsule 300 mg PO BID #180 caps 08/22/23 Unknown Rx ketoprofen 75 mg capsule 75 mg PO Q6H PRN Migraine Symptoms 11/01/23 Unknown Rx #100 caps prochlorperazine maleate 10 mg 10 mg PO BID PRN Migraine Symptoms 11/24/23 Unknown Rx tablet (Compazine) #30 tabs ondansetron 4 mg disintegrating 4 mg PO Q8H PRN PRN Nausea #10 tabs 12/11/23 Unknown Rx tablet oxycodone 5 mg tablet 5 mg PO Q8H PRN pain 3 days #10 12/11/23 Unknown Rx tabs Allergy/AdvReac Type Severity Reaction Status Date / Time latex Allergy Itching Verified 12/11/23 11:39 naproxen Allergy Unknown Verified 12/11/23 11:39 Penicillins (PCN) Allergy Rash Verified 12/11/23 11:39 escitalopram (From Lexapro) AdvReac Intermediate Lightheaded Verified 12/11/23 11:39 sertraline (From Zoloft) AdvReac Intermediate Dizzy & Verified 12/11/23 11:39 Headache dicyclomine (From Bentyl) AdvReac Unknown Unknown Verified 12/11/23 11:39 hydrocodone (From Vicodin) AdvReac Other Verified 12/11/23 11:39 ketorolac (From Toradol) AdvReac Other Verified 12/11/23 11:39 Family History Grandmother Diabetes Other Family history of skin cancer High cholesterol Hypertension Surgical History History of carpal tunnel surgery of right wrist History of surgery on lower extremity Status post incision and drainage (~04/15/22) History of total vaginal hysterectomy (TVH) (~03/22/22) History of thyroidectomy History of surgery on arm Social History Smoking Status: Current every day smoker tobacco type: cigarettes Tobacco: How many years used: 13 Electronic Cigarette Use: not used second hand exposure: No alcohol intake: current alcohol intake frequency: holidays/special occasions only substance use type: does not use caffeine: Yes what type of physical activity do you participate in: none seatbelt use: always do you feel safe at home: Yes additional social history: emmy [place] ED Constitutional Constitutional ED: Reports chills, fever(s) and subjective Eyes Eyes: Denies change in vision or discharge from eye(s) ENT ENT ED: Denies discharge from eye(s), rhinorrhea or sore throat Cardiovascular Cardiovascular: Denies chest pain or palpitations Respiratory/Chest Respiratory/Chest: Denies cough or dyspnea Gastrointestinal Gastrointestinal: Reports abdominal pain and nausea; Denies diarrhea or vomiting Genitourinary Genitourinary ED: Denies difficulty urinating or dysuria Musculoskeletal Musculoskeletal: Reports back pain; Denies extremity pain Integumentary Denies Abrasions or rash Neurologic Neurologic: Denies headache(s) or weakness Allergic/Immunologic Allergic/Immunologic ED: Denies lip swelling or urticaria EXAM Physical Exam Const Vital Signs: 12/11/23 11:39 12/11/23 13:36 12/11/23 14:59 Temperature 98.2 F Temperature Source Temporal Pulse Rate 97 78 78 Respiratory Rate 16 18 18 Blood Pressure 113/80 114/67 128/72 H Blood Pressure Mean 91 82 90 Pulse Ox 99 97 Oxygen Delivery Method Room Air Room Air 12/11/23 16:58 12/11/23 18:22 Temperature 98 F Temperature Source Pulse Rate 77 71 Respiratory Rate 17 18 Blood Pressure 122/78 H 128/72 H Blood Pressure Mean 92 90 Pulse Ox 99 99 Oxygen Delivery Method Room Air Positive well nourished and well developed General Appearance ED: well developed HEENT Reports moist mucous membranes Eyes EOMs intact bilaterally Chest Wall inspection of chest normal and palpation of chest normal Resp normal respiratory effort and clear to auscultation bilaterally Cardio regular rate and regular rhythm GI GI Narrative: Abdomen soft with diffuse tenderness to palpation that is mild. Pain is slightly worsened with palpation of the right upper quadrant. No palpable masses. Active bowel sounds are noted. Back/Spine no CVA tenderness Extremity normal to inspection Neuro oriented x3 and no sensory deficits noted Motor Exam: strength 5/5 throughout Psych Mood & Affect: anxious Skin no rashes or lesions noted MDM MDM MDM Narrative Medical decision making narrative: Patient given dose of oxycodone for pain. IV line initiated. Labwork urinalysis obtained to evaluate for infection/hematuria. CT of the abdomen pelvis IV contrast obtained to evaluate for gallbladder inflammation, bowel wall inflammation, ovarian cyst, kidney stone. History & Record Review Discussion w/independent historian: Patient Additional record(s) reviewed:: Prior outpatient record, Prior ED visit and Prior labs Lab Data Attestation: I reviewed the patient's lab results. Labs: Laboratory Results - last 24 hr 12/11/23 12/11/23 12/11/23 12:06 14:20 15:25 WBC 4.0 L RBC 4.96 Hgb 14.2 Hct 42.5 MCV 85.7 MCH 28.6 MCHC 33.4 RDW Std Deviation 39.1 RDW Coeff of Mikel 12.5 Plt Count 160 MPV 11.6 Immature Gran % (Auto) 0.200 Neut % (Auto) 59.1 Lymph % (Auto) 29.2 [place] % (Auto) 6.0 Eos % (Auto) 5.0 Baso % (Auto) 0.5 Absolute Neuts (auto) 2.4 Absolute Lymphs (auto) 1.17 Nucleated RBC % 0 Sodium 138 Potassium 3.6 Chloride 106 Carbon Dioxide 27.0 Anion Gap 5 BUN 9 Creatinine 0.69 Estim Creat Clear Calc 141.12 Est GFR (MDRD) Af Amer 124 Est GFR (MDRD) Non-Af 102 BUN/Creatinine Ratio 13.0 Glucose 81 Calcium 8.3 L Total Bilirubin 0.20 Direct Bilirubin 0.09 AST 16 ALT 31 Alkaline Phosphatase 65 Total Protein 6.6 Albumin 3.3 Globulin 3.3 Lipase 37 Urine Color Yellow Urine Clarity Sl. Cloudy Urine pH 6.5 Ur Specific [place] 1.015 Urine Protein 15 H Urine Glucose (UA) 50 H Urine Ketones Negative Urine Occult Blood Negative Urine Nitrite Negative Urine Bilirubin Negative Urine Urobilinogen Normal Ur Leukocyte Esterase 25 H Urine RBC 0 SEEN Urine WBC 0-5 SEEN Ur Squamous Epith Cells 5-10 SEEN Urine Bacteria 1+ Urine Mucus 1+ Radiography Diagnostic Testing: Clinical Impression(s) from Imaging Studies Abdomen/Pelvis CT 12/11/23 14:14 IMPRESSION: Stable enlarged right lower quadrant mesenteric lymph nodes, possible mesenteric adenitis in the appropriate clinical setting. Decreasing size right ovarian cyst. Hepatosplenomegaly. Electronically Signed: Lorne Cooper MD at 18:02 EDT Reading Location ID and State: [facility] / [place] Tel , Service support , Treatment and Re-Evaluation :: CBC reveals slightly low white count at 4.0 with 59% neutrophils. Hemoglobin is 14.2. Chemistry studies are unremarkable. LFTs are normal. Lipase is normal. Urinalysis reveals 5-10 epithelial cells with 1+ bacteria and 0-5 white cells. No nitrites noted. CT scan of the abdomen and pelvis reveals stable enlarged right lower quadrant mesenteric lymph nodes, possible mesenteric adenitis in the appropriate clinical setting. Decreasing size of right ovarian cyst when compared to July. Hepatosplenomegaly noted. Test results discussed with the patient. I see no evidence of acute infection. The right ovarian cyst is smaller when compared to July, however I am unsure if this is the same cyst that has ruptured and is decreasing in size, or if the prior cyst resolved and now she is developing another cyst to the right ovary. Patient be given a short course of oxycodone at home for pain. She has follow-up GI testing later this month. Return instructions were provided. Discharge Plan Triage Chief Complaint: Abd Pain ED Provider: Dimple Luis Dx/Rx/DC Orders Clinical Impression: Abdominal pain, Ovarian cyst Instructions: ED Ovarian Cyst Prescriptions: New ondansetron 4 mg tablet,disintegrating 4 mg PO Q8H PRN PRN (Reason: Nausea) Qty: 10 0RF oxycodone 5 mg tablet 5 mg PO Q8H PRN (Reason: pain) 3 Days Qty: 10 0RF No Action hydroxyzine pamoate 50 mg capsule 50 mg PO TID PRN (Reason: anxiety) Qty: 20 0RF (DME) compress.stocking,knee,reg,lrg Misc See Rx Instructions .MEDSUPPLY Qty: 2 1RF Rx Instructions: wear daily for venous insufficiency 20-30 mmHg ketoprofen 75 mg capsule 75 mg PO Q6H PRN (Reason: Migraine Symptoms) Qty: 100 1RF Rx Instructions: 1 cap PO at on set of headache max of 3 in 24 hours, max 20 per month ondansetron [ondansetron] 4 mg tablet,disintegrating 8 mg PO Q8H PRN PRN (Reason: Nausea) Qty: 20 0RF albuterol sulfate 2.5 mg /3 mL (0.083 %) solution for nebulization 2.5 mg inhalation Q6H PRN (Reason: shortness of breath or wheezing) Qty: 90 1RF amlodipine 5 mg tablet 5 mg PO DAILY Qty: 90 1RF levothyroxine 137 mcg tablet 137 mcg PO DAILY Qty: 90 1RF ursodiol 300 mg capsule 300 mg PO BID Qty: 180 1RF prochlorperazine maleate [Compazine] 10 mg tablet 10 mg PO BID PRN (Reason: Migraine Symptoms) Qty: 30 0RF Primary Care Provider: Jose Alejandro London Referrals: Jose Alejandro London MD [Primary Care Provider] - FriendRalph DO [Med Staff - Active Staff] - 10-14 Days if not better Print Language: Irish Disposition Disposition: Home, Self Care Discharge Date/Time: 12/11/23 18:26
[2023-12-11 16:58] VITALS: BP 122/78; PULSE 77; RESP 17; O2SAT 99
[2023-12-11 18:22] VITALS: BP 128/72; PULSE 71; RESP 18; TEMP 36.6; O2SAT 99
== END 2023-12-11 18:26 | disposition home or self-care (01) ==
PROVIDERS: Emergency Provider Emergency Medicine; PCP Internal Medicine; Visit Provider Emergency Medicine
DX: N83.201 Unspecified ovarian cyst, right side (principal); I10 Essential (primary) hypertension; R10.31 Right lower quadrant pain; R11.0 Nausea; M54.9 Dorsalgia, unspecified; R10.11 Right upper quadrant pain; G89.29 Other chronic pain; F32.A Depression, unspecified; F41.9 Anxiety disorder, unspecified; F17.210 Nicotine dependence, cigarettes, uncomplicated; Z79.890 Hormone replacement therapy; Z79.899 Other long term (current) drug therapy
CPT/HCPCS: J2405; 74177; 80048; 80076; 81001; 83690; 85025; 96360; 96361; 99282; J7030; Q9967; A4216

== ENCOUNTER → 2023-12-19 | Outpatient (CLI) | payer MEDICAID, SELFPAY ==
--- NOTE | 2023-12-19 08:27 | VDLE_ITS ---
Reason For Study: BLE PAIN RIGHT LEFT CFV is compressible, spontaneous, phasic, CFV is compressible, spontaneous, phasic, competent and demonstrates normal competent, and demonstrates normal augmentation. augmentation. FV is compressible, phasic, and INCOMPETENT FV is compressible, spontaneous, phasic, for greater than 1.0 second. competent and demonstrates normal POP V is compressible, phasic, and augmentation. INCOMPETENT for greater than 1.0 second. POP V is compressible, spontaneous, phasic, T/P Trunk is compressible. competent and demonstrates normal PTV is compressible. augmentation. RT PerV is compressible. T/P Trunk is compressible. SFJ is INCOMPETENT and measures 0.83 cm. PTV is compressible. GSV proximal thigh measures 0.80 x 0.78 cm. LT PerV is compressible. GSV at knee measures 0.64 x 0.71 cm. SFJ is competent and measures 0.78 cm. GSV INCOMPETENT throughout for greater than GSV proximal thigh measures 0.48 x 0.50 cm. 0.5 seconds. GSV at knee measures 0.57 x 0.58 cm. SSV proximal calf is competent and measures GSV is competent throughout. 0.30 x 0.33 cm. SSV proximal calf is competent and measures Perforating Vessel at MID CALF appears 0.13 x 0.15 cm. dilated and NONCOMPRESSIBLE with intraluminal echoes noted. Echoes do not appear to extend into connected vessels. Procedure This is a venous duplex using B-mode, color flow and spectral Doppler. Exam performed in department. The exam was diagnostic. VL/Venous Duplex US - Hoang Extrem Interpretation Summary Acute superficial vein thrombosis noted in a right calf turkish rubber vein. Deep veins of the bilateral lower extremities are patent and compressible segme ntally. There is no evidence of bilateral lower extremity deep vein thrombosis. The bilateral great saphenous veins appear patent and compressible segmentally. Positive for reflux in the right saphenofemoral junction, great saphenous vein throughout. Ordering Physician: Britany Nuñez Referring Physician: Jose Alejandro London Performed By: Simone Verdugo RVT
--- NOTE | 2023-12-19 08:27 | US_ITS ---
STUDY: ABDOMINAL ULTRASOUND - RIGHT UPPER QUADRANT; ELASTOGRAPHY REASON FOR VISIT: Female, 38 years old. Fatty infiltration of the liver. TECHNIQUE: Ultrasound evaluation of the right upper quadrant was performed with real-time and static gonzalez-scale imaging. Point quantification shear wave elastography was performed ([facility]). TECHNICAL QUALITY: Adequate. COMPARISON: Comparison is made with prior study dated May 16, 2023. FINDINGS: Liver: The liver is mildly enlarged and measures 18 cm. There is increased echogenicity consistent with fatty infiltration. The bile ducts are within normal limits. There is hepatic color flow. The direction of portal flow is hepatopetal. There is no demonstrated mass lesion. Median liver stiffness measured 5.3 kPa. Gallbladder: Normal distended gallbladder. The gallbladder wall measures 2 mm. There is a negative sonographic Johnston''s sign. There is no pericholecystic fluid. There are no gallstones. Common Bile Duct (C.B.D.): The common bile duct measures 4 mm. Pancreas: There is normal echogenicity of the visualized pancreas. There is no demonstrated pancreatic mass or cyst. Right Kidney: Normal size of the right kidney. The right kidney measures 13.4 cm x 5.7 cm x 5.6 cm. Normal renal cortex. The right cortex measures 2.0 cm. There is no demonstrated renal mass or cyst. There is no right hydronephrosis. US/ABD Limited w/ Elastography IMPRESSION: 1. Liver stiffness measures 5.3 kPa compatible with F0-F1 (Normal to mild liver fibrosis) Metavir score. Electronically Signed: Christiano Eduardo MD at 15:24 EDT ,
== END | disposition home or self-care (01) ==
LOC: CVS 08:26
PROVIDERS: PCP Internal Medicine; Referring Provider Physician Assistant; Visit Provider Physician Assistant
DX: I83.893 Varicose veins of bilateral lower extremities with other complications (principal); K76.0 Fatty (change of) liver, not elsewhere classified; R10.11 Right upper quadrant pain
CPT/HCPCS: 76705; 76981; 93970

== ENCOUNTER 2023-12-20 19:19 | Emergency (ER) | payer MEDICAID, SELFPAY ==
[2023-12-20 19:20] VITALS: BP 119/69; PULSE 94; RESP 15; TEMP 35.9; O2SAT 100; BMI 38.9
--- NOTE | 2023-12-20 20:05 | US_ITS ---
STUDY: ULTRASOUND TRANSVAGINAL CLINICAL: Female, 38 years old. RLQ pain TECHNIQUE: Transvaginal COMPARISON: CT scan 12/11/2023, ultrasound 07/24/2023. FINDINGS: Previous hysterectomy. Enlarged right ovary, measuring 5.3 x 5.7 x 4.3 cm. 3.6 cm complex cystic mass, smaller than prior study, and most consistent with hemorrhagic cyst. Normal blood flow. Absent left ovary. No free fluid. US/Transvaginal Non- IMPRESSION: Decreasing size of probable right hemorrhagic cyst. Electronically Signed: Lobo Huston MD at 21:38 EDT ,
--- NOTE | 2023-12-20 20:10 | ED.VIS.FEGU ---
HPI HPI - Female History of Present Illness Chief Complaint: Female C/O Informant: patient Narrative Narrative: 38-year-old female presenting with my ovarian cyst pain. She has had this pain before with ovarian cyst that was diagnosed on the right, she states she had a CAT scan within the last couple weeks that showed it, but this flareup of pain, she has had these in the past, started about 2 weeks ago. She states actually the last 4 days were better and she thought it was gone but then last night it became worse and is severe all day today. She denies vomiting. No urinary symptoms. No changes in bowel movements. No fevers or chills. She has had prior hysterectomy and left ovary removal, and was told by her surgeon that the right one was not able to be removed safely because of scar tissue. Because of continuing to have painful issues with it she was referred to gynecologic oncology, and wants she had a consultation with him in [place], he said that due to documentation of prior laparoscopy/surgery reports, he refused to perform any type of elective surgery on her pelvis. [facility] Medical History Right foot sprain Right ankle sprain ADD (attention deficit disorder) Breast pain, right Contact with or exposure to other viral diseases Dermatitis PONV (postoperative nausea and vomiting) Leg cramps Anxiety and depression Left shoulder pain Depression Chronic pain Cancer Arthritis Fatty liver Easy bruising Restless legs Back pain Injury of head and neck Syncope Fibromyalgia History of pain when walking Hypertension History of echocardiogram History of stress test Cardiology follow-up encounter Localized swelling, mass and lump, neck Cervical lymphadenopathy Heartburn Chronic RUQ pain Right femoral fracture Tinnitus Vertigo Ectopic cardiac beats Palpitations RUQ abdominal pain Cervical radiculopathy Chronic back pain Left-sided low back pain with left-sided sciatica Hypocalcemia Tobacco abuse Bronchitis Morbid obesity Post herpetic neuralgia NICOLÁS (generalized anxiety disorder) ADHD (attention deficit hyperactivity disorder), combined type Numbness and tingling of both upper extremities Numbness of both lower extremities Migraine without aura and with status migrainosus, not intractable History of gestational diabetes Almaz's thyroiditis History of acne Thyroid disease Melanoma Home Medications ?Medication ?Instructions ?Recorded ?Last Taken ?Type hydroxyzine pamoate 50 mg capsule 50 mg PO TID PRN anxiety #20 caps 05/30/22 Unknown Rx albuterol sulfate 2.5 mg/3 mL 2.5 mg (3 mL) inhalation Q6H PRN 06/27/22 Unknown Rx (0.083 %) solution for nebulization shortness of breath or wheezing #90 mL compress.stocking,knee,reg,lrg #2 ea 04/19/23 Unknown Rx amlodipine 5 mg tablet 5 mg PO DAILY bp #90 tabs 07/25/23 Unknown Rx levothyroxine 137 mcg tablet 137 mcg PO DAILY synthroid #90 tabs 07/25/23 Unknown Rx ondansetron 4 mg disintegrating 8 mg (2 x 4 mg) PO Q8H PRN PRN 07/26/23 Unknown Rx tablet Nausea #20 tabs ursodiol 300 mg capsule 300 mg PO BID #180 caps 08/22/23 Unknown Rx ketoprofen 75 mg capsule 75 mg PO Q6H PRN Migraine Symptoms 11/01/23 Unknown Rx #100 caps prochlorperazine maleate 10 mg 10 mg PO BID PRN Migraine Symptoms 11/24/23 Unknown Rx tablet (Compazine) #30 tabs ondansetron 4 mg disintegrating 4 mg PO Q8H PRN PRN Nausea #10 tabs 12/11/23 Unknown Rx tablet oxycodone 5 mg tablet 5 mg PO Q8H PRN pain 3 days #10 12/11/23 Unknown Rx tabs oxycodone-acetaminophen 5 mg-325 1 tab PO Q6H PRN PRN Pain 3 days 12/20/23 Unknown Rx mg tablet #12 TABLETS Allergy/AdvReac Type Severity Reaction Status Date / Time latex Allergy Itching Verified 12/20/23 19:20 naproxen Allergy Unknown Verified 12/20/23 19:20 Penicillins (PCN) Allergy Rash Verified 12/20/23 19:20 escitalopram (From Lexapro) AdvReac Intermediate Lightheaded Verified 12/20/23 19:20 sertraline (From Zoloft) AdvReac Intermediate Dizzy & Verified 12/20/23 19:20 Headache dicyclomine (From Bentyl) AdvReac Unknown Unknown Verified 12/20/23 19:20 hydrocodone (From Vicodin) AdvReac Other Verified 12/20/23 19:20 ketorolac (From Toradol) AdvReac Other Verified 12/20/23 19:20 Family History Grandmother Diabetes Other Family history of skin cancer High cholesterol Hypertension Surgical History History of carpal tunnel surgery of right wrist History of surgery on lower extremity Status post incision and drainage (~04/15/22) History of total vaginal hysterectomy (TVH) (~03/22/22) History of thyroidectomy History of surgery on arm Social History Smoking Status: Current every day smoker tobacco type: cigarettes Tobacco: How many years used: 13 Electronic Cigarette Use: not used second hand exposure: No alcohol intake: current alcohol intake frequency: holidays/special occasions only substance use type: does not use caffeine: Yes what type of physical activity do you participate in: none seatbelt use: always do you feel safe at home: Yes additional social history: emmy HAMILTON ED Constitutional Constitutional ED: Denies chills or fever(s) Eyes Eyes: Denies change in vision or diplopia ENT ENT ED: Denies rhinorrhea or sore throat Cardiovascular Cardiovascular: Denies chest pain or palpitations Respiratory/Chest Respiratory/Chest: Denies cough or dyspnea Gastrointestinal Gastrointestinal: Reports abdominal pain and nausea; Denies diarrhea or vomiting Genitourinary Genitourinary ED: Denies dysuria or hematuria Musculoskeletal Musculoskeletal: Denies back pain or neck pain Integumentary Denies abscess or rash Neurologic Neurologic: Denies headache(s), paresthesias or weakness Psychiatric Psychiatric: Denies suicidal thoughts EXAM Physical Exam Const Vital Signs: 12/20/23 19:20 12/20/23 21:19 12/20/23 23:00 Temperature 96.6 F L Temperature Source Temporal Pulse Rate 94 84 74 Respiratory Rate 15 16 16 Blood Pressure 119/69 126/76 H 127/70 H Blood Pressure Mean 85 92 89 Pulse Ox 100 98 98 Oxygen Delivery Method Room Air Room Air Room Air 12/20/23 23:03 Temperature 98.9 F Temperature Source Pulse Rate 74 Respiratory Rate 16 Blood Pressure 127/70 H Blood Pressure Mean 89 Pulse Ox 98 Oxygen Delivery Method Positive well nourished and well developed General Appearance ED: well developed and NAD HEENT Reports moist mucous membranes normocephalic and atraumatic Eyes PERRL and EOMs intact bilaterally Neck full ROM and supple Resp normal respiratory effort and clear to auscultation bilaterally Cardio regular rate, regular rhythm and no murmurs GI non-tender and non-distended Auscultation: normoactive bowel sounds Palpation: soft Back/Spine no CVA tenderness General Back: other FROM Extremity normal to inspection General Extremety ED: Negative for edema, pulses abnormal or tenderness General Extremity: Negative for edema or pulses abnormal Neuro oriented x3, CN's II-XII intact bilaterally and no sensory deficits noted Sensorium / Orientation: awake and alert Motor Exam: strength 5/5 throughout Skin no rashes or lesions noted and no wounds MDM MDM MDM Narrative Medical decision making narrative: Given the location of the patient's pain, certainly considering other pathology other than an ovarian cyst such as appendicitis, but given her history I think reasonable to start with an ultrasound to rule out torsion/abscess, and at the same time obtaining screening blood work and a urinalysis. The blood work is normal with a white blood count of 5.3, no shift. The ultrasound images I reviewed as well as report which I agree with, it is consistent with an enlarged right ovary with what appears to be a complex cystic mass 3.6 cm, most consistent with hemorrhagic cyst and is smaller than the prior ultrasound study. Patient was asking why it was read like this when it is larger than the interpretation on her CT scan a couple weeks ago showing that it was in the 2 cm range. I advised her that ultrasound is more accurate and this was being compared with the prior ultrasound in July, it is little smaller than it was then. There is no evidence of torsion. Patient is doing better after Percocet she was offered parenteral analgesics but declined that, she was also given some Zofran. This time she is well-appearing with normal vital signs stable for discharge home with a short prescription course of some Percocet. Lab Data Attestation: I reviewed the patient's lab results. Labs: Laboratory Results - last 24 hr 12/20/23 12/20/23 20:13 21:17 WBC 5.3 RBC 4.96 Hgb 14.1 Hct 42.2 MCV 85.1 MCH 28.4 MCHC 33.4 RDW Std Deviation 39.4 RDW Coeff of Mikel 12.8 Plt Count 170 MPV 11.6 Immature Gran % (Auto) 0.200 Neut % (Auto) 55.3 Lymph % (Auto) 32.1 Mcculloch % (Auto) 7.2 Eos % (Auto) 4.8 Baso % (Auto) 0.4 Absolute Neuts (auto) 2.9 Absolute Lymphs (auto) 1.69 Nucleated RBC % 0 Sodium 139 Potassium 3.6 Chloride 109 H Carbon Dioxide 24.0 Anion Gap 6 BUN 7 Creatinine 0.84 Estim Creat Clear Calc 115.97 Est GFR (MDRD) Af Amer 99 Est GFR (MDRD) Non-Af 82 BUN/Creatinine Ratio 8.4 L Glucose 132 H Calcium 8.7 Urine Color Yellow Urine Clarity Clear Urine pH 7.0 Ur Specific [place] 1.010 Urine Protein Negative Urine Glucose (UA) Normal Urine Ketones Negative Urine Occult Blood Negative Urine Nitrite Negative Urine Bilirubin Negative Urine Urobilinogen Normal Ur Leukocyte Esterase 25 H Urine RBC 0 SEEN Urine WBC 0-5 SEEN Ur Squamous Epith Cells 0-5 SEEN Urine Bacteria 0 SEEN Urine Mucus 0 SEEN Radiography Diagnostic Testing: Clinical Impression(s) from Imaging Studies Transvaginal US 12/20/23 20:05 IMPRESSION: Decreasing size of probable right hemorrhagic cyst. Electronically Signed: Lobo Huston MD at 21:38 EDT , Discharge Plan Triage Chief Complaint: Female C/O ED Provider: Ashutosh Barajas Dx/Rx/DC Orders Clinical Impression: Hemorrhagic cyst of right ovary Instructions: ED Ovarian Cyst Prescriptions: New oxycodone-acetaminophen 5-325 mg tablet 1 tab PO Q6H PRN PRN (Reason: Pain) 3 Days Qty: 12 0RF No Action hydroxyzine pamoate 50 mg capsule 50 mg PO TID PRN (Reason: anxiety) Qty: 20 0RF (DME) compress.stocking,knee,reg,lrg Misc See Rx Instructions .MEDSUPPLY Qty: 2 1RF Rx Instructions: wear daily for venous insufficiency 20-30 mmHg ketoprofen 75 mg capsule 75 mg PO Q6H PRN (Reason: Migraine Symptoms) Qty: 100 1RF Rx Instructions: 1 cap PO at on set of headache max of 3 in 24 hours, max 20 per month ondansetron [ondansetron] 4 mg tablet,disintegrating 8 mg PO Q8H PRN PRN (Reason: Nausea) Qty: 20 0RF ondansetron 4 mg tablet,disintegrating 4 mg PO Q8H PRN PRN (Reason: Nausea) Qty: 10 0RF oxycodone 5 mg tablet 5 mg PO Q8H PRN (Reason: pain) 3 Days Qty: 10 0RF albuterol sulfate 2.5 mg /3 mL (0.083 %) solution for nebulization 2.5 mg inhalation Q6H PRN (Reason: shortness of breath or wheezing) Qty: 90 1RF amlodipine 5 mg tablet 5 mg PO DAILY Qty: 90 1RF levothyroxine 137 mcg tablet 137 mcg PO DAILY Qty: 90 1RF ursodiol 300 mg capsule 300 mg PO BID Qty: 180 1RF prochlorperazine maleate [Compazine] 10 mg tablet 10 mg PO BID PRN (Reason: Migraine Symptoms) Qty: 30 0RF Primary Care Provider: Jose Alejandro London Referrals: Jose Alejandro London MD [Primary Care Provider] - 3-5 Days if not improving (or your [facility]) Print Language: Estonian Disposition Disposition: Home, Self Care
[2023-12-20 20:24] LABS: Absolute Lymphocyte Count 1.69 X10^3/uL (0.83-4.51); Absolute Neutrophil Count 2.9 X10^3/uL (2.0-7.7); Basophil# 0.02 X10^3/uL; Basophil% 0.4 % (0-1); Eosinophil# 0.25 X10^3/uL; Eosinophils% 4.8 % (0-5); Hematocrit 42.2 % (37-47); Hemoglobin 14.1 g/dL (12.0-15.0); Lymphocyte # 1.69 X10^3/ul (0.83-4.51); Lymphocyte % 32.1 % (19-41); Mean Corp Hgb Conc 33.4 g/dL (32-36); Mean Corpuscular Hgb 28.4 pg (27.0-32.0); Mean Corpuscular Volume 85.1 fL (81-99); Mean Platelet Vol. 11.6 fl (6.2-12.0); Monocyte# 0.38 X10^3/uL; Monocyte% 7.2 % (0-10); NRBC Flagged by Analyzer 0 % (0-5); Neutrophil # 2.91 X10^3/uL (2.7-7.7); Neutrophil % 55.3 % (47-70); Platelet Count 170 K/mm3 (150-450); RBC Distribution Width CV 12.8 % (11.6-14.6); RBC Distribution Width SD 39.4 fl (35.1-43.9); Red Blood Count 4.96 M/mm3 (4.2-5.4); White Blood Count 5.3 K/mm3 (4.4-11.0)
[2023-12-20 20:43] LABS: Anion Gap 6 (5-15); BUN 7 mg/dL (7-18); BUN/Creat Ratio 8.4 RATIO (10-20); Calcium,Total 8.7 mg/dL (8.5-10.1); Chloride 109 mmol/L (98-107); Creatinine, Serum 0.84 mg/dL (0.55-1.02); EST Glomerular Filtration Rate 82 mL/min (>60); Est Glom Filt Rate - Afr Amer 99 mL/min (>60); Estimated Creatinine Clearance 115.97 ml/min; Glucose 132 mg/dL (74-106); Potassium 3.6 mmol/L (3.5-5.1); Sodium Level 139 mmol/L (136-145)
[2023-12-20] MEDS: oxyCODONE 5 MG Tablet PO (21:10)
[2023-12-20 21:19] VITALS: BP 126/76; PULSE 84; RESP 16; O2SAT 98
[2023-12-20 21:23] LABS: Bacteria 0 SEEN /hpf (None Seen); Mucous, Urine 0 SEEN /hpf (<or=2+); Red Blood Cells-Urine 0 SEEN /hpf (0-5)
[2023-12-20 21:34] LABS: Color, Urine Yellow (Yellow); Glucose, Dipstick Normal (Normal); Ketone-Dipstick Negative (Negative); Leukocyte Esterase-Dipstick 25 /ul (Negative); Nitrite-Dipstick Negative (Negative); Occult Blood-Urine Negative /ul (Negative); Protein-Dipstick Negative (Negative); Urine Bilirubin Dipstick Negative (Negative); Urine Clarity Clear (Clear); Urine Urobilinogen Normal (Normal)
[2023-12-20 21:47] LABS: Squamous Epithelial Cells - UA 0-5 SEEN /hpf (5-10); White Blood Cells 0-5 SEEN /hpf (0-5)
[2023-12-20 23:00] VITALS: BP 127/70; PULSE 74; RESP 16; O2SAT 98
[2023-12-20 23:03] VITALS: BP 127/70; PULSE 74; RESP 16; TEMP 37.2; O2SAT 98
== END 2023-12-20 23:27 | disposition home or self-care (01) ==
PROVIDERS: Emergency Provider Emergency Medicine; PCP Internal Medicine; Visit Provider Emergency Medicine
DX: N83.201 Unspecified ovarian cyst, right side (principal); F17.210 Nicotine dependence, cigarettes, uncomplicated; I10 Essential (primary) hypertension; F90.9 Attention-deficit hyperactivity disorder, unspecified type; E06.3 Autoimmune thyroiditis
CPT/HCPCS: 76830; 80048; 81001; 85025; 93976; 96374; 96375; 99282; A4216; J2405

== ENCOUNTER 2024-01-31 23:54 | Emergency (ER) | payer MEDICAID, SELFPAY ==
[2024-01-31 23:55] VITALS: BP 134/92; PULSE 90; RESP 18; TEMP 36.9; O2SAT 97; BMI 39.2
--- NOTE | 2024-02-01 00:26 | EDS_ITS ---
HPI History of Present Illness HPI Narrative: 38-year-old female history of prior superficial thrombophlebitis. Has never had a DVT or PE. She has had multiple negative CTs of the chest and ultrasounds of the leg. Tonight noticed mild discomfort and redness to her right proximal medial calf where she has varicose veins. Denies any chest pain or shortness of breath. She is on no control pills. She has had no recent travel, surgery or immobilization. Chief Complaint: Lower Extremity Injury Informant: patient Occured/Mechanism Mechanism/Context: No injury Onset/Context/Timing Onset: Today and Hours Context: Gradual Onset Timing: Continuous Quality of Pain: Dull Current Severity: Mild Maximum Severity: Mild Associated Symptoms Associated Symptoms: Negative for Parasthesia, Weakness or Loss of Funtion Narrative Narrative: 38-year-old female proximal right calf tenderness. History of superficial venous thrombosis. No prior history of DVT or PE. Multiple prior ultrasounds and CTAs of her chest all of which have been negative. No significant risk factors. Prior similar symptoms: Yes Recent Illness/Hospitalization: No PFSH PFSH Medical History Right foot sprain Right ankle sprain ADD (attention deficit disorder) Breast pain, right Contact with or exposure to other viral diseases Dermatitis PONV (postoperative nausea and vomiting) Leg cramps Anxiety and depression Left shoulder pain Depression Chronic pain Cancer Arthritis Fatty liver Easy bruising Restless legs Back pain Injury of head and neck Syncope Fibromyalgia History of pain when walking Hypertension History of echocardiogram History of stress test Cardiology follow-up encounter Localized swelling, mass and lump, neck Cervical lymphadenopathy Heartburn Chronic RUQ pain Right femoral fracture Tinnitus Vertigo Ectopic cardiac beats Palpitations RUQ abdominal pain Cervical radiculopathy Chronic back pain Left-sided low back pain with left-sided sciatica Hypocalcemia Tobacco abuse Bronchitis Morbid obesity Post herpetic neuralgia NICOLÁS (generalized anxiety disorder) ADHD (attention deficit hyperactivity disorder), combined type Numbness and tingling of both upper extremities Numbness of both lower extremities Migraine without aura and with status migrainosus, not intractable History of gestational diabetes Almaz's thyroiditis History of acne Thyroid disease Melanoma Home Medications ?Medication ?Instructions ?Recorded ?Last Taken ?Type hydroxyzine pamoate 50 mg capsule 50 mg PO TID PRN anxiety #20 caps 05/30/22 Unknown Rx compress.stocking,knee,reg,lrg #2 ea 04/19/23 Unknown Rx amlodipine 5 mg tablet 5 mg PO DAILY bp #90 tabs 07/25/23 Unknown Rx levothyroxine 137 mcg tablet 137 mcg PO DAILY synthroid #90 tabs 07/25/23 Unknown Rx ondansetron 4 mg disintegrating 8 mg (2 x 4 mg) PO Q8H PRN PRN 07/26/23 Unknown Rx tablet Nausea #20 tabs ursodiol 300 mg capsule 300 mg PO BID #180 caps 08/22/23 Unknown Rx ketoprofen 75 mg capsule 75 mg PO Q6H PRN Migraine Symptoms 11/01/23 Unknown Rx #100 caps ondansetron 4 mg disintegrating 4 mg PO Q8H PRN PRN Nausea #10 tabs 12/11/23 Unknown Rx tablet prochlorperazine maleate 10 mg 10 mg PO BID PRN Migraine Symptoms 01/01/24 Unknown Rx tablet (Compazine) #30 tabs etodolac 300 mg capsule 300 mg PO TID #30 caps 01/11/24 Unknown Rx albuterol sulfate 2.5 mg/3 mL 2.5 mg (3 mL) inhalation Q6H PRN 01/16/24 Unknown Rx (0.083 %) solution for nebulization shortness of breath or wheezing #90 mL azithromycin 250 mg tablet See Rx Instructions PO .COMPLEX #6 01/25/24 Unknown Rx tabs Allergy/AdvReac Type Severity Reaction Status Date / Time latex Allergy Itching Verified 01/31/24 23:58 naproxen Allergy Unknown Verified 01/31/24 23:58 Penicillins (PCN) Allergy Rash Verified 01/31/24 23:58 escitalopram (From Lexapro) AdvReac Intermediate Lightheaded Verified 01/31/24 23:58 sertraline (From Zoloft) AdvReac Intermediate Dizzy & Verified 01/31/24 23:58 Headache dicyclomine (From Bentyl) AdvReac Unknown Unknown Verified 01/31/24 23:58 hydrocodone (From Vicodin) AdvReac Other Verified 01/31/24 23:58 ketorolac (From Toradol) AdvReac Other Verified 01/31/24 23:58 Family History Grandmother Diabetes Other Family history of skin cancer High cholesterol Hypertension Surgical History History of carpal tunnel surgery of right wrist History of surgery on lower extremity Status post incision and drainage (~04/15/22) History of total vaginal hysterectomy (TVH) (~03/22/22) History of thyroidectomy History of surgery on arm Social History Smoking Status: Current every day smoker tobacco type: cigarettes Tobacco: How many years used: 13 Electronic Cigarette Use: not used second hand exposure: No alcohol intake: current alcohol intake frequency: holidays/special occasions only substance use type: does not use caffeine: Yes what type of physical activity do you participate in: none seatbelt use: always do you feel safe at home: Yes additional social history: emmy HAMILTON ROS ED ROS Narrative Denies recent illness. Constitutional Constitutional ED: Denies fever(s) Eyes Eyes: Denies blurry vision ENT ENT ED: Denies ear pain Cardiovascular Cardiovascular: Denies chest pain Respiratory/Chest Respiratory/Chest: Reports cough and other Details: Recent URI. Gastrointestinal Gastrointestinal: Denies abdominal pain Genitourinary Genitourinary ED: Denies dysuria Musculoskeletal Musculoskeletal: Denies arthralgias Integumentary Denies abscess Neurologic Neurologic: Denies headache(s) Psychiatric Psychiatric: Denies anxiety Endocrine Endocrinology: Denies polydipsia Hematologic/Lymphatic Hematologic/Lymphatic: Denies easy bleeding Allergic/Immunologic Allergic/Immunologic ED: Denies mouth swelling EXAM Physical Exam Narrative Exam Narrative: Well-appearing 38-year-old female. Vital signs stable afebrile. Pulse ox 97% on room air. No distress. HEENT exam unremarkable. Lungs clear to auscultation. Heart regular rhythm rate about 90 no murmur. Abdomen soft nontender. Moving all 4 extremities. Neurovascularly intact. Right proximal medial calf just below the knee she has minimal area of redness and tenderness there is a collection of varicose veins there. This appears to be superficial thrombophlebitis. There is no edema in the lower leg. The right foot is neurovascular intact. She has no lymphangitic streaking. This does not appear to be infection. She has no inguinal lymphadenopathy. Otherwise exam unremarkable. Const Vital Signs: 01/31/24 23:55 Temperature 98.5 F Temperature Source Temporal Pulse Rate 90 Respiratory Rate 18 Blood Pressure 134/92 H Blood Pressure Mean 106 Pulse Ox 97 Oxygen Delivery Method Room Air Positive well nourished and well developed; Negative for cachectic, contractures or unkempt General Appearance ED: well developed and NAD; Negative for unkempt, cachectic or contractures Nutritional Appearance: Negative for cachectic HEENT Reports moist mucous membranes normocephalic and atraumatic; Negative for trauma or tenderness Eyes PERRL Neck full ROM and supple Thyroid: Negative for tender Lymph Lymphatic: Negative for other Chest Wall inspection of chest normal and palpation of chest normal Chest: Negative for other Resp normal respiratory effort, no retractions and clear to auscultation bilaterally Effort and Inspection: Negative for pain with movement Auscultation: Negative for rales, rhonchi, wheezes or diminished lung sounds Cardio regular rate, regular rhythm, S1 normal heart sound, S2 normal heart sound and no murmurs Rate: Negative for bradycardia or tachycardic Rhythm: Negative for abnormal rhythm GI non-tender, non-distended and no masses Inspection: Negative for abdominal distention Palpation: soft; Negative for tender, guarding or rebound tenderness present Back/Spine no CVA tenderness Extremity normal to inspection and full ROM Extremity Narrative: Except right proximal, medial calf just below the knee is mildly tender. Varicose veins. Minimal redness. Exam is consistent with superficial thrombophlebitis. No inguinal lymphadenopathy. No streaking. Neuro oriented x3 and CN's II-XII intact bilaterally Sensorium / Orientation: alert, oriented to person, oriented to place and oriented to time; Negative for orientation impaired, confused or lethargic Motor Exam: strength 5/5 throughout Psych mental status grossly normal Appearance: Negative for unkempt Skin no wounds Lesions: no lesions Rashes: no rashes Trauma: Negative for abrasion, laceration or puncture MDM MDM MDM Narrative Medical decision making narrative: 38-year-old female history of superficial thrombophlebitis. Varicose veins. I suspect that is what this is tonight. She and I discussed treatment plan. Warm compresses. Motrin for pain and inflammation. Daily baby aspirin. Follow-up with her vascular surgeon as needed. Ordered outpatient noninvasive study leroy mcdonald. They are not available tonight. History & Record Review Discussion w/independent historian: Patient Additional record(s) reviewed:: Prior inpatient record, Prior outpatient record, Prior ED visit and Prior labs Discharge Plan Triage Chief Complaint: Lower Extremity Injury ED Provider: Ry Enamorado Dx/Rx/DC Orders Clinical Impression: Superficial thrombophlebitis Instructions: ED Thrombophlebitis, Superficial Prescriptions: No Action hydroxyzine pamoate 50 mg capsule 50 mg PO TID PRN (Reason: anxiety) Qty: 20 0RF (DME) compress.stocking,knee,reg,lrg Misc See Rx Instructions .MEDSUPPLY Qty: 2 1RF Rx Instructions: wear daily for venous insufficiency 20-30 mmHg ketoprofen 75 mg capsule 75 mg PO Q6H PRN (Reason: Migraine Symptoms) Qty: 100 1RF Rx Instructions: 1 cap PO at on set of headache max of 3 in 24 hours, max 20 per month etodolac 300 mg capsule 300 mg PO TID Qty: 30 0RF azithromycin 250 mg tablet See Rx Instructions PO .COMPLEX Qty: 6 0RF Rx Instructions: take 500 mg today (day 1), then 250 mg for 4 days (days 2-5) PO ondansetron [ondansetron] 4 mg tablet,disintegrating 8 mg PO Q8H PRN PRN (Reason: Nausea) Qty: 20 0RF ondansetron 4 mg tablet,disintegrating 4 mg PO Q8H PRN PRN (Reason: Nausea) Qty: 10 0RF amlodipine 5 mg tablet 5 mg PO DAILY Qty: 90 1RF levothyroxine 137 mcg tablet 137 mcg PO DAILY Qty: 90 1RF ursodiol 300 mg capsule 300 mg PO BID Qty: 180 1RF prochlorperazine maleate [Compazine] 10 mg tablet 10 mg PO BID PRN (Reason: Migraine Symptoms) Qty: 30 1RF albuterol sulfate 2.5 mg /3 mL (0.083 %) solution for nebulization 2.5 mg inhalation Q6H PRN (Reason: shortness of breath or wheezing) Qty: 90 1RF Other Ambulatory Orders: Venous Duplex US, Unilateral (Stat) Facility: [facility] - Location: [facility] Ordered By: Dr. Ry Enamorado Primary Care Provider: Jose Alejandro London Referrals: Jose Alejandro London MD [Primary Care Provider] - As Needed Activity Restrictions/Additional Instructions: This is most likely superficial thrombophlebitis like you have had before. Irritation of the superficial vein. Unlikely to be a deep venous thrombosis or deep blood clot. Warm compresses. A baby aspirin once a day for the next week. Motrin, Advil or ibuprofen for discomfort several times a day. I will have you schedule an outpatient ultrasound for later this morning. They will call you before noon and tell you when to come in. If they do not call you by noon call [facility] emergency department at [phone] and they will get set up for you. Print Language: [place] Islander Disposition Disposition: Home, Self Care
== END 2024-02-01 00:30 | disposition home or self-care (01) ==
PROVIDERS: Emergency Provider Emergency Medicine; PCP Internal Medicine; Visit Provider Emergency Medicine
DX: I80.01 Phlebitis and thrombophlebitis of superficial vessels of right lower extremity (principal); F17.210 Nicotine dependence, cigarettes, uncomplicated; I10 Essential (primary) hypertension; Z79.899 Other long term (current) drug therapy; Z79.890 Hormone replacement therapy; E07.9 Disorder of thyroid, unspecified
CPT/HCPCS: 99282

== ENCOUNTER → 2024-02-01 | Outpatient (CLI) | payer MEDICAID, SELFPAY ==
--- NOTE | 2024-02-01 10:58 | VDLE_ITS ---
Reason For Study: RLE Pain RIGHT LEFT GSV is normal. CFV is compressible, spontaneous, phasic, CFV is compressible, phasic, and INCOMPETENT competent, and demonstrates normal for greater than 1.0 second. augmentation. FV is compressible, phasic, and INCOMPETENT for greater than 1.0 second. POP V is compressible, phasic, and INCOMPETENT for greater than 1.0 second. Acute deep vein thrombosis is noted in the T/P Trunk. It is dilated and NONCOMPRESSIBLE. Acute deep vein thrombosis is noted in the Gastrocnemius V. It is dilated and NONCOMPRESSIBLE. PTV is compressible. RT PerV is compressible. Procedure This is a venous duplex using B-mode, color flow and spectral Doppler. Exam performed in department. The exam was diagnostic. A preliminary report was called and/or faxed to [facility]. VL/Venous Duplex US, Unilateral Interpretation Summary Acute deep vein thrombosis is noted in the right tibio-peroneal trunk vein, gas trocnemius vein. Reflux noted in the right common femoral vein, femoral vein, popliteal vein. Ordering Physician: Ry Enamorado Referring Physician: Jose Alejandro London Performed By: Simone Verdugo RVT
== END | disposition home or self-care (01) ==
LOC: CVS 10:58
PROVIDERS: PCP Internal Medicine; Referring Provider Emergency Medicine; Visit Provider Emergency Medicine
DX: M79.604 Pain in right leg (principal)
CPT/HCPCS: 93971

== ENCOUNTER 2024-02-06 09:40 | Emergency (ER) | payer MEDICAID, SELFPAY ==
[2024-02-06 09:41] VITALS: BP 148/79; BP 151/81; PULSE 134; PULSE 166; RESP 14; RESP 16; TEMP 36.3; O2SAT 98; BMI 38.7
--- NOTE | 2024-02-06 10:26 | CT_ITS ---
STUDY: CTA CHEST REASON FOR EXAM: Female, 38 years old. Known DVT, SOB, Concern for PE RADIATION DOSAGE (If Supplied By Facility): CTDIvol = ( 19.46 ) mGy, DLP = ( 1911.22 ) mGycm TECHNIQUE: The examination was performed with the intravenous administration of IV 100mL Isovue-370. Post-processing of the angiographic images was performed, with multiplanar reformation and 3D reconstruction. Individualized dose optimization techniques were used for this CT. COMPARISON: Comparison is made with prior study dated October 26, 2023. FINDINGS: Normal enhancement of the main pulmonary artery and right and left pulmonary arteries. Normal enhancement of the bilateral peripheral pulmonary arteries. There is no demonstrated pulmonary embolism. Normal thoracic aorta and visualized great vessels. There is no demonstrated aortic dissection. Normal heart and pericardium. Normal mediastinum. Normal hilar regions. Normal visualized trachea and bronchi. The lungs are well expanded. Minimal residual atelectasis at the right lung base. This has improved as compared to prior study. Normal pleura. Normal chest wall structures. Normal osseous structures. Normal visualized upper abdomen. CT/CTA Chest W/WO Contrast IMPRESSION: No evidence of pulmonary embolism. Residual atelectasis at the right lung base. There has been improvement as compared to prior study. Electronically Signed: Christiano Eduardo MD at 12:53 EDT ,
--- NOTE | 2024-02-06 10:26 | CT_ITS ---
STUDY: CT ABDOMEN AND PELVIS WITH CONTRAST REASON FOR EXAM: Female, 38 years old. Abdominal pain RADIATION DOSAGE (If Supplied By Facility): CTDIvol = ( 19.46 ) mGy, DLP = ( 1911.22 ) mGycm TECHNIQUE: Transaxial images were obtained from the dome of the diaphragm to the symphysis pubis without oral contrast. IV 100mL Isovue-370 was administered. Sagittal and coronal images were reconstructed. Individualized dose optimization techniques were used for this CT. COMPARISON: Comparison is made with prior study dated December 11, 2023. FINDINGS: Mild degree of residual increased markings at the lung bases suggestive of mild atelectasis. The visualized portions of the heart are within normal limits. Mild hepatomegaly. Normal gallbladder and extrahepatic biliary system. There is mild splenomegaly. Normal pancreas. Normal bilateral adrenal glands. There is an 8.2 mm cyst in the posterior upper pole of the right kidney. Normal left kidney. Normal visualized stomach. Normal small intestine. Normal colon. The appendix is visualized and appears normal. Normal abdominal aorta. Normal inferior vena cava. Normal retroperitoneum. Normal urinary bladder. Calcified phleboliths are seen in the pelvis. Heterogeneous enlargement of the right ovary. This measures 3.7 size by 3.6 cm. Sonographic correlation recommended. The patient is status post hysterectomy. There is a small umbilical hernia containing fat. Normal osseous structures. CT/Abdomen/Pelvis W IV Cont ONLY IMPRESSION: Mild hepatomegaly and splenomegaly. Subcentimeter cyst in the right kidney. Enlarged right ovary. This has improved as compared to prior study. Electronically Signed: Christiano Eduardo MD at 12:57 EDT ,
--- NOTE | 2024-02-06 10:29 | ED.VIS.CHEST ---
HPI History of Present Illness Chief Complaint: Chest Pain Narrative Narrative: Chief complaint and HPI: Chest discomfort. 38-year-old female with history of migraines, anxiety, DM2, and recent right lower extremity DVT on Xarelto presents for evaluation of chest discomfort. Patient states she has been following with the vein clinic in order to have her varicose veins in her extremities removed. She states for the past 2 weeks she has been having intermittent chest discomfort, palpitations, shortness of breath. She states she was seen in urgent care and diagnosed with bronchitis. She states this is not abnormal for her as she smokes. Patient states a couple days ago she had increased redness, swelling, and pain in the right lower extremity. She was seen in our emergency department. She had ultrasound done that showed DVT of the right lower extremity. Patient has been on Xarelto. She has not missed any of her doses. Patient states she is continue to have her intermittent chest discomfort, shortness of breath, and palpitations. She was worried about PE. Patient states she also has lower abdominal discomfort. She states at baseline she gets pelvic pain in which she has had a hysterectomy. She still has her right ovary. She states however this pain is different. She is worried about a higher blood clot. She denies any fever, chills, nausea, vomiting, diarrhea, constipation, dysuria. Denies any vaginal complaints or hematuria Review of systems: See HPI Medications: As listed on the chart Allergies: As listed on the chart PFSH: Per chart Vital signs: As listed on the chart. Reviewed. Physical exam: Gen: A&O x3, anxious Head: Normocephalic, atraumatic Eyes: No sclera icterus, conjunctiva clear ENT: Moist mucous membranes Neck: Trachea midline, No JVD CV: RRR, no murmurs Resp: Lungs CTA BL, no w/r/c GI: Abd soft, non-distended, mildly tender to palpation in the bilateral lower quadrant, no r/r/g : No CVA tenderness Musc: Full ROM, no deformity, mild swelling and tenderness in the right calf, DP/PT pulses plus 2 out of 4 bilaterally, femoral pulses plus 2 out of 4 bilaterally Skin: Warm, dry Neuro: Alert, oriented, grossly intact, sensation intact Psych: Cooperative, anxious [facility] Medical History Right foot sprain Right ankle sprain ADD (attention deficit disorder) Breast pain, right Contact with or exposure to other viral diseases Dermatitis PONV (postoperative nausea and vomiting) Leg cramps Anxiety and depression Left shoulder pain Depression Chronic pain Cancer Arthritis Fatty liver Easy bruising Restless legs Back pain Injury of head and neck Syncope Fibromyalgia History of pain when walking Hypertension History of echocardiogram History of stress test Cardiology follow-up encounter Localized swelling, mass and lump, neck Cervical lymphadenopathy Heartburn Chronic RUQ pain Right femoral fracture Tinnitus Vertigo Ectopic cardiac beats Palpitations RUQ abdominal pain Cervical radiculopathy Chronic back pain Left-sided low back pain with left-sided sciatica Hypocalcemia Tobacco abuse Bronchitis Morbid obesity Post herpetic neuralgia NICOLÁS (generalized anxiety disorder) ADHD (attention deficit hyperactivity disorder), combined type Numbness and tingling of both upper extremities Numbness of both lower extremities Migraine without aura and with status migrainosus, not intractable History of gestational diabetes Almaz's thyroiditis History of acne Thyroid disease Melanoma Home Medications ?Medication ?Instructions ?Recorded ?Last Taken ?Type hydroxyzine pamoate 50 mg capsule 50 mg PO TID PRN anxiety #20 caps 05/30/22 Unknown Rx compress.stocking,knee,reg,lrg #2 ea 04/19/23 Unknown Rx levothyroxine 137 mcg tablet 137 mcg PO DAILY synthroid #90 tabs 07/25/23 Unknown Rx ondansetron 4 mg disintegrating 8 mg (2 x 4 mg) PO Q8H PRN PRN 07/26/23 Unknown Rx tablet Nausea #20 tabs ursodiol 300 mg capsule 300 mg PO BID #180 caps 08/22/23 Unknown Rx ketoprofen 75 mg capsule 75 mg PO Q6H PRN Migraine Symptoms 11/01/23 Unknown Rx #100 caps ondansetron 4 mg disintegrating 4 mg PO Q8H PRN PRN Nausea #10 tabs 12/11/23 Unknown Rx tablet prochlorperazine maleate 10 mg 10 mg PO BID PRN Migraine Symptoms 01/01/24 Unknown Rx tablet (Compazine) #30 tabs etodolac 300 mg capsule 300 mg PO TID #30 caps 01/11/24 Unknown Rx albuterol sulfate 2.5 mg/3 mL 2.5 mg (3 mL) inhalation Q6H PRN 01/16/24 Unknown Rx (0.083 %) solution for nebulization shortness of breath or wheezing #90 mL azithromycin 250 mg tablet See Rx Instructions PO .COMPLEX #6 01/25/24 Unknown Rx tabs rivaroxaban 15 mg (42)-20 mg (9) See Rx Instructions PO .COMPLEX 02/01/24 Unknown Rx tablets in a starter pack (Xarelto #51 tabs DVT-PE Treatment 30-Day Starter) amlodipine 5 mg tablet 5 mg PO DAILY bp #90 tabs 02/05/24 Unknown Rx sulfamethoxazole 800 1 tab PO BID 5 days #10 tabs 02/06/24 Unknown Rx mg-trimethoprim 160 mg tablet (Bactrim DS) Allergy/AdvReac Type Severity Reaction Status Date / Time latex Allergy Itching Verified 01/31/24 23:58 naproxen Allergy Unknown Verified 01/31/24 23:58 Penicillins (PCN) Allergy Rash Verified 01/31/24 23:58 escitalopram (From Lexapro) AdvReac Intermediate Lightheaded Verified 01/31/24 23:58 sertraline (From Zoloft) AdvReac Intermediate Dizzy & Verified 01/31/24 23:58 Headache dicyclomine (From Bentyl) AdvReac Unknown Unknown Verified 01/31/24 23:58 hydrocodone (From Vicodin) AdvReac Other Verified 01/31/24 23:58 ketorolac (From Toradol) AdvReac Other Verified 01/31/24 23:58 Family History Grandmother Diabetes Other Family history of skin cancer High cholesterol Hypertension Surgical History History of carpal tunnel surgery of right wrist History of surgery on lower extremity Status post incision and drainage (~04/15/22) History of total vaginal hysterectomy (TVH) (~03/22/22) History of thyroidectomy History of surgery on arm Social History Smoking Status: Current every day smoker tobacco type: cigarettes Tobacco: How many years used: 13 Electronic Cigarette Use: not used second hand exposure: No alcohol intake: current alcohol intake frequency: holidays/special occasions only substance use type: does not use caffeine: Yes what type of physical activity do you participate in: none seatbelt use: always do you feel safe at home: Yes additional social history: emmy EXAM Physical Exam Const Vital Signs: 02/06/24 09:41 02/06/24 09:41 02/06/24 11:29 Temperature 97.3 F L Temperature Source Temporal Pulse Rate 134 H 166 H Respiratory Rate 16 14 Respiratory Effort Respiratory Pattern Blood Pressure 151/81 H 148/79 H Blood Pressure Mean 104 102 Pulse Ox 98 98 Oxygen Delivery Method Room Air Room Air Room Air 02/06/24 11:42 02/06/24 11:42 02/06/24 13:00 Temperature Temperature Source Pulse Rate 71 71 Respiratory Rate 17 16 Respiratory Effort Normal Non-Labored Respiratory Pattern Normal Blood Pressure 119/82 H 113/75 Blood Pressure Mean 94 87 Pulse Ox 99 95 Oxygen Delivery Method Room Air Room Air 02/06/24 13:34 Temperature 98.0 F Temperature Source Pulse Rate 71 Respiratory Rate 16 Respiratory Effort Respiratory Pattern Blood Pressure 113/75 Blood Pressure Mean 87 Pulse Ox 95 Oxygen Delivery Method MDM MDM MDM Narrative Medical decision making narrative: 38-year-old female presents for evaluation of chest discomfort, palpitations, shortness of breath, and bilateral lower quadrant abdominal pain. She is a known DVT. On chart review she had an ultrasound performed that showed an acute DVT in the right tibioperoneal trunk vein, gastrinomas vein. Reflux noted in the right common femoral vein, femoral vein, popliteal vein. Patient is worried about PE and DVT in the abdomen. Differential diagnosis includes but is not limited to PE, pneumonia, electrolyte abnormality, arrhythmia, diverticulitis, appendicitis, UTI. Cardiac workup with CTA chest to assess for PE. CT abdomen ordered for abdominal pain. NS bolus ordered. Patient did take her Xarelto today. On presentation patient is hypertensive, tachycardic. Not hypoxic. CBC without leukocytosis or anemia. CMP relatively unremarkable without ESAU or transaminitis. BNP unremarkable. Lipase unremarkable. TSH unremarkable. Troponin negative x 2. UA questionable for UTI given cloudy appearance with leuk esterases. She does have 5-10 squamous epithelium. 2+ bacteria. Given her lower quadrant abdominal pain we will treat for UTI. Will send urine for culture. CTA chest negative for PE. Patient does have residual atelectasis of the right lung base. Improved from prior study. CT abdomen pelvis shows mild hepatomegaly and splenomegaly. She has a subcentimeter cyst in the right kidney. She is enlarged right ovary which she knows about. Has improved as compared to prior study. On reexamination, patient is still having her lower abdominal pain. It is located more to the right but states that it is different from her ovarian pain. I did recommend pelvic ultrasound however patient declined. She states that she was told by her [employer] that her ovarian is unable to be torsed secondary to the cyst. I told her I cannot confirm this or rule out other pathology. She states that she understands the risks to not having the ultrasound performed and declined at this time. At this point in time, unclear etiology for patient's intermittent chest discomfort and shortness of breath. May be viral illness. She is told to follow-up with her PCP. She was also educated about the cyst on her kidney and other incidental finding and told to follow-up with her PCP. Her abdominal pain may be secondary to UTI. Again we will treat with 5 days of Bactrim. Patient confirmed understanding the plan. Return precautions explained. Tachycardia has resolved. EKG: Interpreted by me/EM physician: EKG shows normal sinus rhythm without any acute ischemic changes. Heart rate 85 Impression: 1. Intermittent chest discomfort 2. Intermittent shortness of breath 3. Lower abdominal pain 4. Possible UTI 5. Known right lower extremity DVT Lab Data Labs: Laboratory Results - last 24 hr 02/06/24 02/06/24 02/06/24 11:30 11:35 13:50 WBC 4.6 RBC 4.83 Hgb 13.5 Hct 41.9 MCV 86.7 MCH 28.0 MCHC 32.2 RDW Std Deviation 40.4 RDW Coeff of Mikel 12.9 Plt Count 160 MPV 11.1 Immature Gran % (Auto) 0.400 Neut % (Auto) 55.7 Lymph % (Auto) 31.1 Bureau % (Auto) 9.3 Eos % (Auto) 2.8 Baso % (Auto) 0.7 Absolute Neuts (auto) 2.6 Absolute Lymphs (auto) 1.43 Nucleated RBC % 0 Sodium 137 Potassium 3.6 Chloride 106 Carbon Dioxide 26.0 Anion Gap 5 BUN 8 Creatinine 0.74 Estim Creat Clear Calc 131.31 Est GFR (MDRD) Af Amer 113 Est GFR (MDRD) Non-Af 94 BUN/Creatinine Ratio 10.8 Glucose 108 H Lactic Acid 0.8 Calcium 8.6 Magnesium 1.9 Total Bilirubin 0.50 AST 16 ALT 26 Alkaline Phosphatase 63 Troponin I High Sens 4 5 B-Natriuretic Peptide 14.8 Total Protein 6.9 Albumin 3.4 Globulin 3.5 Albumin/Globulin Ratio 1.0 Lipase 53 TSH 1.230 Urine Color Yellow Urine Clarity Sl. Cloudy Urine pH 6.5 Ur Specific Jerome 1.015 Urine Protein 15 H Urine Glucose (UA) Normal Urine Ketones Negative Urine Occult Blood Negative Urine Nitrite Negative Urine Bilirubin Negative Urine Urobilinogen Normal Ur Leukocyte Esterase 25 H Urine RBC 0 SEEN Urine WBC 0-5 SEEN Ur Squamous Epith Cells 5-10 SEEN Urine Bacteria 2+ Urine Mucus 0 SEEN Radiography Diagnostic Testing: Clinical Impression(s) from Imaging Studies Abdomen/Pelvis CT 02/06/24 10:26 IMPRESSION: Mild hepatomegaly and splenomegaly. Subcentimeter cyst in the right kidney. Enlarged right ovary. This has improved as compared to prior study. Electronically Signed: Christiano Eduardo MD at 12:57 EDT , Chest CTA 02/06/24 10:26 IMPRESSION: No evidence of pulmonary embolism. Residual atelectasis at the right lung base. There has been improvement as compared to prior study. Electronically Signed: Christiano Eduardo MD at 12:53 EDT , Discharge Plan Triage Chief Complaint: Chest Pain ED Provider: Chuck Allen Dx/Rx/DC Orders Clinical Impression: Chest pain in adult, UTI (urinary tract infection) Instructions: UTIs Understanding, Chest Pain [facility] Prescriptions: New sulfamethoxazole-trimethoprim [Bactrim DS] 800-160 mg tablet 1 tab PO BID 5 Days Qty: 10 0RF No Action hydroxyzine pamoate 50 mg capsule 50 mg PO TID PRN (Reason: anxiety) Qty: 20 0RF (DME) compress.stocking,knee,reg,lrg Misc See Rx Instructions .MEDSUPPLY Qty: 2 1RF Rx Instructions: wear daily for venous insufficiency 20-30 mmHg ketoprofen 75 mg capsule 75 mg PO Q6H PRN (Reason: Migraine Symptoms) Qty: 100 1RF Rx Instructions: 1 cap PO at on set of headache max of 3 in 24 hours, max 20 per month etodolac 300 mg capsule 300 mg PO TID Qty: 30 0RF azithromycin 250 mg tablet See Rx Instructions PO .COMPLEX Qty: 6 0RF Rx Instructions: take 500 mg today (day 1), then 250 mg for 4 days (days 2-5) PO ondansetron [ondansetron] 4 mg tablet,disintegrating 8 mg PO Q8H PRN PRN (Reason: Nausea) Qty: 20 0RF ondansetron 4 mg tablet,disintegrating 4 mg PO Q8H PRN PRN (Reason: Nausea) Qty: 10 0RF levothyroxine 137 mcg tablet 137 mcg PO DAILY Qty: 90 1RF ursodiol 300 mg capsule 300 mg PO BID Qty: 180 1RF prochlorperazine maleate [Compazine] 10 mg tablet 10 mg PO BID PRN (Reason: Migraine Symptoms) Qty: 30 1RF albuterol sulfate 2.5 mg /3 mL (0.083 %) solution for nebulization 2.5 mg inhalation Q6H PRN (Reason: shortness of breath or wheezing) Qty: 90 1RF Xarelto DVT-PE Treat 30d Start 15 mg (42)- 20 mg (9) tablets,dose pack See Rx Instructions PO .COMPLEX Qty: 51 2RF Rx Instructions: take one-15 mg tablet twice daily for 21 days, then one-20 mg tablet once daily; must take with meal/food PO amlodipine 5 mg tablet 5 mg PO DAILY Qty: 90 0RF Primary Care Provider: Jose Alejandro London Referrals: Jose Alejandro London MD [Primary Care Provider] - 3-5 Days Activity Restrictions/Additional Instructions: You have a subcentimeter cyst in the right kidney. Follow-up with your PCP to have this evaluated. Print Language: French Disposition Disposition: Home, Self Care Discharge Date/Time: 02/06/24 15:09
[2024-02-06] MEDS: 0.9% Normal Saline (1000mL) 1,000 ML 999 ML IV (11:37)
[2024-02-06 11:42] VITALS: BP 119/82; PULSE 71; RESP 17; O2SAT 99
[2024-02-06 11:50] LABS: Mucous, Urine 0 SEEN /hpf (<or=2+); Red Blood Cells-Urine 0 SEEN /hpf (0-5)
[2024-02-06 11:52] LABS: Color, Urine Yellow (Yellow); Glucose, Dipstick Normal (Normal); Ketone-Dipstick Negative (Negative); Leukocyte Esterase-Dipstick 25 /ul (Negative); Nitrite-Dipstick Negative (Negative); Occult Blood-Urine Negative /ul (Negative); Protein-Dipstick 15 mg/dl (Negative); Specific Gravity, Urine 1.015 (1.002-1.030); Urine Bilirubin Dipstick Negative (Negative); Urine Clarity Sl. Cloudy (Clear); Urine Urobilinogen Normal (Normal); Urine pH 6.5 (5.0 - 8.0)
[2024-02-06 11:53] LABS: Absolute Lymphocyte Count 1.43 X10^3/uL (0.83-4.51); Absolute Neutrophil Count 2.6 X10^3/uL (2.0-7.7); Basophil# 0.03 X10^3/uL; Basophil% 0.7 % (0-1); Eosinophil# 0.13 X10^3/uL; Eosinophils% 2.8 % (0-5); Hematocrit 41.9 % (37-47); Hemoglobin 13.5 g/dL (12.0-15.0); Lymphocyte # 1.43 X10^3/ul (0.83-4.51); Lymphocyte % 31.1 % (19-41); Mean Corp Hgb Conc 32.2 g/dL (32-36); Mean Corpuscular Volume 86.7 fL (81-99); Mean Platelet Vol. 11.1 fl (6.2-12.0); Monocyte# 0.43 X10^3/uL; Monocyte% 9.3 % (0-10); NRBC Flagged by Analyzer 0 % (0-5); Neutrophil # 2.56 X10^3/uL (2.7-7.7); Neutrophil % 55.7 % (47-70); Platelet Count 160 K/mm3 (150-450); RBC Distribution Width CV 12.9 % (11.6-14.6); RBC Distribution Width SD 40.4 fl (35.1-43.9); Red Blood Count 4.83 M/mm3 (4.2-5.4); White Blood Count 4.6 K/mm3 (4.4-11.0)
[2024-02-06 11:58] LABS: Bacteria 2+ /hpf (None Seen); Squamous Epithelial Cells - UA 5-10 SEEN /hpf (5-10); White Blood Cells 0-5 SEEN /hpf (0-5)
[2024-02-06 12:05] LABS: BNP,B-Type NATRIURETIC PEPTIDE 14.8 pg/mL (0-100)
[2024-02-06 12:15] LABS: AST(SGOT) 16 U/L (15-37); Alanine Aminotransfer ALT/SGPT 26 U/L (13-56); Albumin, Serum 3.4 g/dL (3.2-5.0); Alkaline Phosphatase 63 U/L (45-117); Anion Gap 5 (5-15); BUN 8 mg/dL (7-18); BUN/Creat Ratio 10.8 RATIO (10-20); Calcium,Total 8.6 mg/dL (8.5-10.1); Chloride 106 mmol/L (98-107); Creatinine, Serum 0.74 mg/dL (0.55-1.02); EST Glomerular Filtration Rate 94 mL/min (>60); Est Glom Filt Rate - Afr Amer 113 mL/min (>60); Estimated Creatinine Clearance 131.31 ml/min; Globulin 3.5 g/dL (2.2-4.2); Glucose 108 mg/dL (74-106); Lipase 53 U/L (13-75); Magnesium 1.9 mg/dL (1.6-2.6); Potassium 3.6 mmol/L (3.5-5.1); Protein, Total 6.9 g/dL (6.4-8.2); Sodium Level 137 mmol/L (136-145); Troponin-I HS (w/2H Reflex) 4 pg/mL (3.0-54.0)
[2024-02-06 12:29] LABS: Lactic Acid 0.8 mmol/L (0.4-1.9)
[2024-02-06 13:00] VITALS: BP 113/75; PULSE 71; RESP 16; O2SAT 95
[2024-02-06 13:34] VITALS: BP 113/75; PULSE 71; RESP 16; TEMP 36.7; O2SAT 95
[2024-02-06 13:47] LABS: Reflex Troponin-HS? (from REC) Y
[2024-02-06 14:20] LABS: Troponin-I HS 5 pg/mL (3.0-54.0)
== END 2024-02-06 15:09 | disposition home or self-care (01) ==
PROVIDERS: Emergency Provider Surgery; PCP Internal Medicine; Visit Provider Surgery
DX: R07.89 Other chest pain (principal); I82.441 Acute embolism and thrombosis of right tibial vein; I82.451 Acute embolism and thrombosis of right peroneal vein; I82.461 Acute embolism and thrombosis of right calf muscular vein; E11.9 Type 2 diabetes mellitus without complications; R06.02 Shortness of breath; N39.0 Urinary tract infection, site not specified; N83.8 Other noninflammatory disorders of ovary, fallopian tube and broad ligament; F41.9 Anxiety disorder, unspecified; R10.30 Lower abdominal pain, unspecified; I10 Essential (primary) hypertension; N28.1 Cyst of kidney, acquired; J98.11 Atelectasis; R16.2 Hepatomegaly with splenomegaly, not elsewhere classified; F17.210 Nicotine dependence, cigarettes, uncomplicated; Z79.01 Long term (current) use of anticoagulants
CPT/HCPCS: 71275; 74177; 80053; 81001; 83605; 83690; 83735; 83880; 84443; 84484; 85025; 87086; 93005; 96360; 96361; 99284; J7030; Q9967; A4216

== ENCOUNTER → 2024-02-15 | Outpatient (CLI) | payer MEDICAID, SELFPAY | END | disposition home or self-care (01) | LOC: SDC 11:41 | PROVIDERS: PCP Internal Medicine; Referring Provider Orthopaedic Surgery; Visit Provider Orthopaedic Surgery | DX: Z01.818 Encounter for other preprocedural examination (principal) ==

== ENCOUNTER 2024-02-16 10:14 | Emergency (ER) | payer MEDICAID, SELFPAY ==
[2024-02-16 10:14] VITALS: BP 136/80; PULSE 83; RESP 14; TEMP 36.6; O2SAT 100; BMI 39.1
--- NOTE | 2024-02-16 10:34 | EX.ED.VIS.HA ---
HPI History of Present Illness Chief Complaint: Headache Informant: patient Onset/Context/Timing Onset: Yesterday Context: Sudden Timing: Continuous Quality -Headache: Positive for Dull and Throbbing Location: Frontal Worsened by: Nothing Relieved by: Nothing Associated Symptoms/Injury Associated Symptoms: Positive for Numbness, Tingling and Blurred Vision; Negative for Fever, Nausea, Vomiting, Sore Throat, Sinus Pressure, Preceding Aura, Visual Changes, Photophobia or Visual Loss Narrative Narrative: Patient presents with a headache that began yesterday. Patient states it began rather suddenly while she was driving. Patient states it has been constant. Patient describes it as aching and throbbing. Patient states it is mainly over the frontal area but does radiate around to the sides of her head. Patient states nothing makes it better and nothing makes it worse. Patient does admit to some numbness and tingling over the frontal area. Patient states that at times she has a sensation where she feels like there is water over her forehead. Patient states that this comes and goes. Patient admits to some blurry vision but denies any scotoma or auras. Patient denies any photophobia. [facility] Medical History Right foot sprain Right ankle sprain ADD (attention deficit disorder) Breast pain, right Contact with or exposure to other viral diseases Dermatitis PONV (postoperative nausea and vomiting) Leg cramps Anxiety and depression Left shoulder pain Depression Chronic pain Cancer Arthritis Fatty liver Easy bruising Restless legs Back pain Injury of head and neck Syncope Fibromyalgia History of pain when walking Hypertension History of echocardiogram History of stress test Cardiology follow-up encounter Localized swelling, mass and lump, neck Cervical lymphadenopathy Heartburn Chronic RUQ pain Right femoral fracture Tinnitus Vertigo Ectopic cardiac beats Palpitations RUQ abdominal pain Cervical radiculopathy Chronic back pain Left-sided low back pain with left-sided sciatica Hypocalcemia Tobacco abuse Bronchitis Morbid obesity Post herpetic neuralgia N[place]OL[place]S (generalized anxiety disorder) ADHD (attention deficit hyperactivity disorder), combined type Numbness and tingling of both upper extremities Numbness of both lower extremities Migraine without aura and with status migrainosus, not intractable History of gestational diabetes Almaz's thyroiditis History of acne Thyroid disease Melanoma Home Medications ?Medication ?Instructions ?Recorded ?Last Taken ?Type hydroxyzine pamoate 50 mg capsule 50 mg PO TID PRN anxiety #20 caps 05/30/22 Unknown Rx compress.stocking,knee,reg,lrg #2 ea 04/19/23 Unknown Rx ondansetron 4 mg disintegrating 8 mg (2 x 4 mg) PO Q8H PRN PRN 07/26/23 Unknown Rx tablet Nausea #20 tabs ursodiol 300 mg capsule 300 mg PO BID #180 caps 08/22/23 Unknown Rx ketoprofen 75 mg capsule 75 mg PO Q6H PRN Migraine Symptoms 11/01/23 Unknown Rx #100 caps ondansetron 4 mg disintegrating 4 mg PO Q8H PRN PRN Nausea #10 tabs 12/11/23 Unknown Rx tablet prochlorperazine maleate 10 mg 10 mg PO BID PRN Migraine Symptoms 01/01/24 Unknown Rx tablet (Compazine) #30 tabs etodolac 300 mg capsule 300 mg PO TID #30 caps 01/11/24 Unknown Rx albuterol sulfate 2.5 mg/3 mL 2.5 mg (3 mL) inhalation Q6H PRN 01/16/24 Unknown Rx (0.083 %) solution for nebulization shortness of breath or wheezing #90 mL azithromycin 250 mg tablet See Rx Instructions PO .COMPLEX #6 01/25/24 Unknown Rx tabs amlodipine 5 mg tablet 5 mg PO DAILY bp #90 tabs 02/05/24 Unknown Rx sulfamethoxazole 800 1 tab PO BID 5 days #10 tabs 02/06/24 Unknown Rx mg-trimethoprim 160 mg tablet (Bactrim DS) levothyroxine 137 mcg tablet 137 mcg PO DAILY synthroid #90 tabs 02/09/24 Unknown Rx rivaroxaban 20 mg tablet (Xarelto) 20 mg PO ONCE #30 tabs 02/09/24 Unknown Rx Allergy/AdvReac Type Severity Reaction Status Date / Time latex Allergy Itching Verified 02/16/24 10:15 naproxen Allergy Unknown Verified 02/16/24 10:15 Penicillins (PCN) Allergy Rash Verified 02/16/24 10:15 escitalopram (From Lexapro) AdvReac Intermediate Lightheaded Verified 02/16/24 10:15 sertraline (From Zoloft) AdvReac Intermediate Dizzy & Verified 02/16/24 10:15 Headache dicyclomine (From Bentyl) AdvReac Unknown Unknown Verified 02/16/24 10:15 hydrocodone (From Vicodin) AdvReac Other Verified 02/16/24 10:15 ketorolac (From Toradol) AdvReac Other Verified 02/16/24 10:15 Family History Grandmother Diabetes Other Family history of skin cancer High cholesterol Hypertension Surgical History History of carpal tunnel surgery of right wrist History of surgery on lower extremity Status post incision and drainage (~04/15/22) History of total vaginal hysterectomy (TVH) (~03/22/22) History of thyroidectomy History of surgery on arm Social History Smoking Status: Current every day smoker tobacco type: cigarettes Tobacco: How many years used: 13 Electronic Cigarette Use: not used second hand exposure: No alcohol intake: current alcohol intake frequency: holidays/special occasions only substance use type: does not use caffeine: Yes what type of physical activity do you participate in: none seatbelt use: always do you feel safe at home: Yes additional social history: emmy [place] ED Constitutional Constitutional ED: Reports chills, subjective and sweats; Denies fever(s) Eyes Eyes: Denies blurry vision or change in vision ENT ENT ED: Denies rhinorrhea or sore throat Cardiovascular Cardiovascular: Denies chest pain or palpitations Respiratory/Chest Respiratory/Chest: Denies cough or dyspnea Gastrointestinal Gastrointestinal: Denies nausea or vomiting Genitourinary Genitourinary ED: Denies dysuria or hematuria Musculoskeletal Musculoskeletal: Reports neck pain; Denies back pain Integumentary Denies abscess or rash Neurologic Neurologic: Reports headache(s); Denies weakness Allergic/Immunologic Allergic/Immunologic ED: Denies mouth swelling or urticaria EXAM Physical Exam Const Vital Signs: 02/16/24 10:14 02/16/24 13:00 Temperature 98 F Temperature Source Temporal Pulse Rate 83 80 Respiratory Rate 14 Blood Pressure 136/80 H 118/69 Blood Pressure Mean 98 85 Pulse Ox 100 Oxygen Delivery Method Room Air Positive well nourished and well developed General Appearance ED: well developed and NAD HEENT Reports normocephalic and moist mucous membranes atraumatic Eyes PERRL and EOMs intact bilaterally Neck supple, no meningeal signs and no JVD Neck Narrative: There is some mild tenderness and spasm of the upper cervical paraspinal muscles bilaterally. There is no midline tenderness. There is no bony crepitance or step-off noted. There is good range of motion. General: tenderness Resp normal respiratory effort and clear to auscultation bilaterally Cardio regular rate and regular rhythm GI non-tender and non-distended Palpation: soft Neuro oriented x3, CN's II-XII intact bilaterally and no sensory deficits noted [place] Coma Scale: document GCS findings Spontaneous Obeys Commands Oriented 15 Sensorium / Orientation: awake and alert Speech: speech normal Motor Exam: strength 5/5 throughout Psych mental status grossly normal MDM MDM MDM Narrative Medical decision making narrative: Differential diagnosis includes intracranial bleeding, migraine headache, tension headache, cluster headache, and electrolyte abnormality. CT scan of the brain will be obtained to assess for intracranial bleeding. CBC will be obtained to assess for leukocytosis and anemia. Basic metabolic profile will be obtained to assess for electrolyte abnormality and renal function. Lab Data Attestation: I reviewed the patient's lab results. Lab results narrative: [place] reviewed and was within normal limits. Basic metabolic profile was reviewed and was within normal limits. Labs: Laboratory Results - last 24 hr 02/16/24 10:58 WBC 4.1 L RBC 4.82 Hgb 13.5 Hct 41.7 MCV 86.5 MCH 28.0 MCHC 32.4 RDW Std Deviation 40.7 RDW Coeff of Mikel 13.0 Plt Count 165 MPV 10.9 Immature Gran % (Auto) 0.200 Neut % (Auto) 57.5 Lymph % (Auto) 29.8 [place] % (Auto) 7.1 Eos % (Auto) 4.7 Baso % (Auto) 0.7 Absolute Neuts (auto) 2.3 Absolute Lymphs (auto) 1.21 Nucleated RBC % 0 Sodium 137 Potassium 3.6 Chloride 106 Carbon Dioxide 26.0 Anion Gap 5 BUN 7 Creatinine 0.62 Estim Creat Clear Calc 157.59 Est GFR (MDRD) Af Amer 139 Est GFR (MDRD) Non-Af 115 BUN/Creatinine Ratio 11.3 Glucose 135 H Calcium 9.0 Radiography Diagnostic Testing: Clinical Impression(s) from Imaging Studies Brain CT 02/16/24 11:05 IMPRESSION: No acute intracranial abnormality. No interval change. Electronically Signed: Ang Kohler MD at 11:32 EDT , CT scan of the brain was obtained. There is no acute intracranial abnormality. This was interpreted by the radiologist and was also independently reviewed by myself. Treatment and Re-Evaluation Narrative: Smoking cessation was discussed. Patient was given IV fluids. Patient declined Reglan and Benadryl. Patient was feeling better on reevaluation. Patient was advised of her findings. Patient was instructed to follow-up with her primary care physician in 5 to 7 days. Patient was instructed to drink plenty of fluids. Patient was instructed to return if worse in any way. Patient understood and was agreeable with the plan. All questions were answered. Discharge Plan Triage Chief Complaint: Headache ED Provider: Greg Melgar Dx/Rx/DC Orders Clinical Impression: Migraine, Tobacco abuse Instructions: ED, Migraine (Classical) Prescriptions: No Action hydroxyzine pamoate 50 mg capsule 50 mg PO TID PRN (Reason: anxiety) Qty: 20 0RF (DME) compress.stocking,knee,reg,lrg Misc See Rx Instructions .MEDSUPPLY Qty: 2 1RF Rx Instructions: wear daily for venous insufficiency 20-30 mmHg ketoprofen 75 mg capsule 75 mg PO Q6H PRN (Reason: Migraine Symptoms) Qty: 100 1RF Rx Instructions: 1 cap PO at on set of headache max of 3 in 24 hours, max 20 per month etodolac 300 mg capsule 300 mg PO TID Qty: 30 0RF azithromycin 250 mg tablet See Rx Instructions PO .COMPLEX Qty: 6 0RF Rx Instructions: take 500 mg today (day 1), then 250 mg for 4 days (days 2-5) PO ondansetron [ondansetron] 4 mg tablet,disintegrating 8 mg PO Q8H PRN PRN (Reason: Nausea) Qty: 20 0RF ondansetron 4 mg tablet,disintegrating 4 mg PO Q8H PRN PRN (Reason: Nausea) Qty: 10 0RF sulfamethoxazole-trimethoprim [Bactrim DS] 800-160 mg tablet 1 tab PO BID 5 Days Qty: 10 0RF ursodiol 300 mg capsule 300 mg PO BID Qty: 180 1RF prochlorperazine maleate [Compazine] 10 mg tablet 10 mg PO BID PRN (Reason: Migraine Symptoms) Qty: 30 1RF albuterol sulfate 2.5 mg /3 mL (0.083 %) solution for nebulization 2.5 mg inhalation Q6H PRN (Reason: shortness of breath or wheezing) Qty: 90 1RF amlodipine 5 mg tablet 5 mg PO DAILY Qty: 90 0RF levothyroxine 137 mcg tablet 137 mcg PO DAILY Qty: 90 1RF Xarelto 20 mg tablet 20 mg PO ONCE Qty: 30 1RF Rx Instructions: must administer with a meal/food Primary Care Provider: Jose Alejandro London Referrals: Jose Alejandro London MD [Primary Care Provider] - 5-7 Days Print Language: Mexican Disposition Disposition: Home, Self Care
[2024-02-16] MEDS: 0.9% Normal Saline (1000mL) 1,000 ML 999 ML IV (10:54)
[2024-02-16 11:02] LABS: Absolute Lymphocyte Count 1.21 X10^3/uL (0.83-4.51); Absolute Neutrophil Count 2.3 X10^3/uL (2.0-7.7); Basophil# 0.03 X10^3/uL; Basophil% 0.7 % (0-1); Eosinophil# 0.19 X10^3/uL; Eosinophils% 4.7 % (0-5); Hematocrit 41.7 % (37-47); Hemoglobin 13.5 g/dL (12.0-15.0); Lymphocyte # 1.21 X10^3/ul (0.83-4.51); Lymphocyte % 29.8 % (19-41); Mean Corp Hgb Conc 32.4 g/dL (32-36); Mean Corpuscular Volume 86.5 fL (81-99); Mean Platelet Vol. 10.9 fl (6.2-12.0); Monocyte# 0.29 X10^3/uL; Monocyte% 7.1 % (0-10); NRBC Flagged by Analyzer 0 % (0-5); Neutrophil # 2.33 X10^3/uL (2.7-7.7); Neutrophil % 57.5 % (47-70); Platelet Count 165 K/mm3 (150-450); RBC Distribution Width SD 40.7 fl (35.1-43.9); Red Blood Count 4.82 M/mm3 (4.2-5.4); White Blood Count 4.1 K/mm3 (4.4-11.0)
--- NOTE | 2024-02-16 11:05 | CT_ITS ---
EXAM: CT HEAD WITHOUT INTRAVENOUS CONTRAST CLINICAL INDICATION: PAIN TECHNIQUE: Multiple axial images were obtained of the head without intravenous contrast. This CT exam was performed using one or more of the following dose reduction techniques: automated exposure control, adjustment of the mA and/or kV according to patient size, and/or use of iterative reconstruction technique. COMPARISON: CT Head dated 08/17/2022 FINDINGS: BRAIN AND EXTRA-AXIAL SPACES: Normal. Normal brain attenuation. No intra- or extra-axial hemorrhage. No acute infarct. No intracranial mass or mass effect. There is preservation of the gonzalez/white matter interface. Posterior fossa structures are unremarkable. Ventricles are appropriate for age. No hydrocephalus. Basal cisterns are patent. BONES/JOINTS: Normal calvarium. SINUSES: No acute sinusitis. MASTOID AIR CELLS: Normal. Clear. CT/Brain/Head without Contrast IMPRESSION: No acute intracranial abnormality. No interval change. Electronically Signed: Ang Kohler MD at 11:32 EDT ,
[2024-02-16 11:20] LABS: Anion Gap 5 (5-15); BUN 7 mg/dL (7-18); BUN/Creat Ratio 11.3 RATIO (10-20); Chloride 106 mmol/L (98-107); Creatinine, Serum 0.62 mg/dL (0.55-1.02); EST Glomerular Filtration Rate 115 mL/min (>60); Est Glom Filt Rate - Afr Amer 139 mL/min (>60); Estimated Creatinine Clearance 157.59 ml/min; Glucose 135 mg/dL (74-106); Potassium 3.6 mmol/L (3.5-5.1); Sodium Level 137 mmol/L (136-145)
[2024-02-16 13:00] VITALS: BP 118/69; PULSE 80
== END 2024-02-16 13:13 | disposition home or self-care (01) ==
PROVIDERS: Emergency Provider Emergency Medicine; PCP Internal Medicine; Visit Provider Emergency Medicine
DX: G43.909 Migraine, unspecified, not intractable, without status migrainosus (principal); M54.2 Cervicalgia; H53.8 Other visual disturbances; G89.29 Other chronic pain; I10 Essential (primary) hypertension; F17.210 Nicotine dependence, cigarettes, uncomplicated; Z79.890 Hormone replacement therapy; Z79.01 Long term (current) use of anticoagulants; Z79.899 Other long term (current) drug therapy
CPT/HCPCS: 70450; 80048; 85025; 96361; 96374; 96375; 99283; J7030

== ENCOUNTER → 2024-02-28 | Outpatient (CLI) | payer MEDICAID, SELFPAY ==
--- NOTE | 2024-02-28 15:09 | US_ITS ---
EXAM: US PELVIS TRANSABDOMINAL AND TRANSVAGINAL, COMPLETE CLINICAL INDICATION: monitor complex right ovarian cyst TECHNIQUE: Transabdominal and endovaginal pelvic ultrasound was performed with grayscale and color Doppler imaging. Endovaginal imaging was used for better evaluation of the endometrium and adnexa. COMPARISON: No relevant prior studies available. FINDINGS: UTERUS/CERVIX: Hysterectomy noted. RIGHT OVARY: 2.3 cm complex structure within the right ovary consistent with a hemorrhagic cyst. Blood flow is present in the right ovary. The right ovary measures 4.6 x 3.8 x 2.8 cm. LEFT OVARY: Left ovary has been removed. FREE FLUID: None. US/Pelvic w/ Transvaginal IMPRESSION: 2.3 cm hemorrhagic right ovarian cyst. No evidence of ovarian torsion. Electronically Signed: Ang Kohler MD at 15:56 EDT ,
== END | disposition home or self-care (01) ==
LOC: US 15:08
PROVIDERS: PCP Internal Medicine; Referring Provider Nurse Practitioner Women's Health; Visit Provider Nurse Practitioner Women's Health
DX: N83.291 Other ovarian cyst, right side (principal)
CPT/HCPCS: 76830; 76856

== ENCOUNTER → 2024-03-04 | Outpatient (CLI) | payer MEDICAID, SELFPAY ==
--- NOTE | 2024-03-04 14:53 | VDLE_ITS ---
Reason For Study: RLE Pain RIGHT LEFT GSV is normal. FV is compressible, spontaneous, phasic, CFV is compressible, phasic, and INCOMPETENT competent and demonstrates normal for greater than 1.0 second. augmentation. FV is compressible, phasic, and INCOMPETENT for greater than 1.0 second. POP V is compressible, spontaneous, and phasic. T/P Trunk is compressible. PTV is compressible. RT PerV is compressible. Gastrocnemius Vein is compressible. SSV/Soleus Vein Perforating vessel mid calf is INCOMPETENT for greater than 0.5 seconds and measures 0.29 cm SSV/Gastroc Vein perforating vessel prox calf is INCOMPETENT for greater than 0.5 seconds and measures 0.34 cm. Procedure This is a venous duplex using B-mode, color flow and spectral Doppler. Exam performed in department. The exam was diagnostic. A preliminary report was called and/or faxed to [facility] / Britany Nuñez. VL/Venous Duplex US, Unilateral Interpretation Summary Deep veins of the right lower extremity are patent and compressible segmentally . There is no evidence of right lower extremity deep vein thrombosis. The right great sapheno us vein appears patent and compressible segmentally. Positive for reflux in the right common femoral vein, femoral vein, perforators from soleus and gastrocnemius veins to small saphenous. Ordering Physician: Britany Nuñez Referring Physician: Jose Alejandro London Performed By: Simone Verdugo, DELON
== END | disposition home or self-care (01) ==
LOC: CVS 14:51
PROVIDERS: PCP Internal Medicine; Referring Provider Physician Assistant; Visit Provider Physician Assistant
DX: M79.604 Pain in right leg (principal)
CPT/HCPCS: 93971

== ENCOUNTER 2024-03-21 10:17 | Emergency (ER) | payer MEDICAID, SELFPAY ==
[2024-03-21 10:17] VITALS: BP 141/96; PULSE 88; RESP 18; TEMP 36.6; O2SAT 100; BMI 38.9
--- NOTE | 2024-03-21 11:16 | EDS_ITS ---
HPI History of Present Illness Chief Complaint: Abd Pain Informant: patient Narrative Narrative: Persistent right ovarian cyst pain for the past week. Saw her comb setter Dr. Moore Monday, states had ultrasound and CT. Right 3.7 cm ovarian cysts. She has had a hysterectomy and left nephrectomy in the past. She is on Xarelto all started early January for right lower extremity DVT. This for first clot. Therefore she cannot do NSAIDs. She was not provided any medications Monday she was told to go to ER if worsens for pain control. She had transient rectal bleeding lower 2 weeks ago due to straining. She followed up with her vascular surgeon Dr. Enrique there is concerns for internal hemorrhoid potential was provided steroid suppositories however waiting for approval. Bleeding has stopped. Yesterday had intercourse had transient vaginal bleeding she did contact her comb setter during the episode. Today early had some loose stools with mild bleeding rectally she called her vascular surgeon again they are stopping her Xarelto. She states her comb setter is awaiting approval for medication to shrink her right ovary for treatment. No fevers or chills. No nausea or vomiting. She has tolerated Percocet in the past that she is allergic to Vicodin. Prior similar symptoms: Yes PFSH PFSH Medical History Herniated nucleus pulposus, C4-5 PCOS (polycystic ovarian syndrome) Deep vein blood clot of right lower extremity Chronic bronchitis Right foot sprain Right ankle sprain ADD (attention deficit disorder) Breast pain, right Contact with or exposure to other viral diseases Dermatitis PONV (postoperative nausea and vomiting) Leg cramps Anxiety and depression Left shoulder pain Depression Chronic pain Cancer Arthritis Fatty liver Easy bruising Restless legs Back pain Injury of head and neck Syncope Fibromyalgia History of pain when walking Hypertension History of echocardiogram History of stress test Cardiology follow-up encounter Localized swelling, mass and lump, neck Cervical lymphadenopathy Heartburn Chronic RUQ pain Right femoral fracture Tinnitus Vertigo Ectopic cardiac beats Palpitations RUQ abdominal pain Cervical radiculopathy Chronic back pain Left-sided low back pain with left-sided sciatica Hypocalcemia Tobacco abuse Bronchitis Morbid obesity Post herpetic neuralgia NICOLÁS (generalized anxiety disorder) ADHD (attention deficit hyperactivity disorder), combined type Numbness and tingling of both upper extremities Numbness of both lower extremities Migraine without aura and with status migrainosus, not intractable History of gestational diabetes Almaz's thyroiditis History of acne Thyroid disease Melanoma Home Medications ?Medication ?Instructions ?Recorded ?Last Taken ?Type hydroxyzine pamoate 50 mg capsule 50 mg PO TID PRN anxiety #20 caps 05/30/22 Unknown Rx ursodiol 300 mg capsule 300 mg PO BID #180 caps 08/22/23 Unknown Rx ketoprofen 75 mg capsule 75 mg PO Q6H PRN Migraine Symptoms 11/01/23 Unknown Rx #100 caps prochlorperazine maleate 10 mg 10 mg PO BID PRN Migraine Symptoms 01/01/24 Unknown Rx tablet (Compazine) #30 tabs albuterol sulfate 2.5 mg/3 mL 2.5 mg (3 mL) inhalation Q6H PRN 01/16/24 Unknown Rx (0.083 %) solution for nebulization shortness of breath or wheezing #90 mL amlodipine 5 mg tablet 5 mg PO DAILY bp #90 tabs 02/05/24 Unknown Rx levothyroxine 137 mcg tablet 137 mcg PO DAILY synthroid #90 tabs 02/09/24 Unknown Rx rivaroxaban 20 mg tablet (Xarelto) 20 mg PO ONCE #30 tabs 02/09/24 Unknown Rx propranolol 10 mg tablet 10 mg PO TID PRN anxiety #60 tabs 03/08/24 Unknown Rx sertraline 50 mg tablet 50 mg PO QDAY #30 tabs 03/08/24 Unknown Rx pantoprazole 40 mg tablet,delayed 40 mg PO .breakfast 1 month #30 03/12/24 Unknown Rx release tabs hydrocortisone acetate 25 mg 25 mg [place] BID #42 ea 03/13/24 Unknown Rx rectal suppository compress.stocking,knee,reg,lrg #2 ea 03/21/24 Unknown Rx oxycodone-acetaminophen 5 mg-325 1 tab PO Q6H PRN PRN Pain 5 days 03/21/24 Unknown Rx mg tablet #20 TABLETS Allergy/AdvReac Type Severity Reaction Status Date / Time latex Allergy Itching Verified 03/21/24 10:17 naproxen Allergy Unknown Verified 03/21/24 10:17 Penicillins (PCN) Allergy Rash Verified 03/21/24 10:17 escitalopram (From Lexapro) AdvReac Intermediate Lightheaded Verified 03/21/24 10:17 sertraline (From Zoloft) AdvReac Intermediate Dizzy & Verified 03/21/24 10:17 Headache dicyclomine (From Bentyl) AdvReac Unknown Unknown Verified 03/21/24 10:17 hydrocodone (From Vicodin) AdvReac Other Verified 03/21/24 10:17 ketorolac (From Toradol) AdvReac Other Verified 03/21/24 10:17 Family History Grandmother Diabetes Hypertension Hypercholesterolemia Thyroid disorder Mother Family history of skin cancer Other High cholesterol Surgical History History of carpal tunnel surgery of right wrist History of surgery on lower extremity Status post incision and drainage (~04/15/22) History of total vaginal hysterectomy (TVH) (~03/22/22) History of thyroidectomy History of surgery on arm Social History Smoking Status: Current every day smoker tobacco type: cigarettes Tobacco: How many years used: 13 Electronic Cigarette Use: not used second hand exposure: No alcohol intake: current alcohol intake frequency: holidays/special occasions only substance use type: does not use caffeine: Yes what type of physical activity do you participate in: none seatbelt use: always do you feel safe at home: Yes additional social history: emmy [facility] ED Constitutional Constitutional ED: Denies chills, fever(s) or sweats Eyes Eyes: Denies change in vision ENT ENT ED: Denies dysphagia or sore throat Cardiovascular Cardiovascular: Denies chest pain, leg edema, palpitations or racing heartbeat Respiratory/Chest Respiratory/Chest: Denies cough, dyspnea or dyspnea on exertion Gastrointestinal Gastrointestinal: Denies abdominal pain, diarrhea, nausea or vomiting Genitourinary Genitourinary ED: Reports other Details: Right pelvic/ovary pain ; Denies dysuria, hematuria or urinary frequency Musculoskeletal Musculoskeletal: Denies back pain, extremity pain or neck pain Integumentary Denies rash or wounds Neurologic Neurologic: Denies headache(s), paresthesias or weakness EXAM Physical Exam Const Vital Signs: 03/21/24 10:17 03/21/24 11:45 Temperature 97.8 F 97.8 F Temperature Source Oral Pulse Rate 88 78 Respiratory Rate 18 18 Blood Pressure 141/96 H 137/84 H Blood Pressure Mean 111 101 Pulse Ox 100 100 Oxygen Delivery Method Room Air Positive well nourished and well developed General Appearance ED: well developed and NAD HEENT Reports moist mucous membranes normocephalic and atraumatic Eyes EOMs intact bilaterally and conjunctivae normal General Eye ED: Yes normal appearance of both eyes Neck no lymphadenopathy and supple General: Negative for tenderness Chest Wall Chest: Negative for tenderness Resp normal respiratory effort and normal air movement Effort and Inspection: symmetric chest movement; Negative for respiratory distress Cardio regular rate, regular rhythm and no murmurs Peripheral Pulses: pulses 2+ throughout GI normal to inspection, nondistended, normoactive bowel sounds and non-tender Palpation: Negative for guarding or rebound tenderness present Narrative: Tenderness right pelvic region no guarding or rebound. Back/Spine no CVA tenderness and no thoracic nor lumbar tenderness Extremity normal to inspection General Extremety ED: Negative for edema or tenderness General Extremity: Negative for edema Neuro oriented x3 and no sensory deficits noted Sensorium / Orientation: awake and alert Skin no rashes or lesions noted and no wounds MDM MDM MDM Narrative Medical decision making narrative: Interventions / MDM: Differential diagnosis: Right ovarian cyst Diagnosis considered but do not suspect: No clinical ovarian torsion My EKG interpretation: N/A Imaging independently reviewed and interpreted by myself: N/A External documents reviewed: N/A Test considered but not ordered:N/A ED course: Patient reported outpatient ultrasound 3 days ago 3.7 right ovarian cyst. She has had some bleeding issues as resolved. She states she is cleared to stop her Xarelto by her vascular surgeon this morning. She is treated with oxycodone for her pain. 1120: Discussed with her comb setter Dr. Moore, cleared for 20 Percocets to use as needed. She confirms 3.7 cm cyst. She states she is awaiting for approval for medications for treatment for her. At this time we do not feel repeat ultrasound is necessary as pain has not worsened and just been persistent. Will discuss continued treatment follow-up with her comb setter with return precautions. All questions were answered. Re-evaluation: stable Disposition discussed with patient/family/significant other: Patient Case discussed with consulting clinician: N/A This note was generated with [employer] dictation software. It may contain incorrect words, spelling, and punctuation that were not noted in checking the note before signing. Discharge Plan Triage Chief Complaint: Abd Pain ED Provider: Drake Guzman Dx/Rx/DC Orders Clinical Impression: Pelvic pain, Cyst of right ovary Instructions: ED Ovarian Cyst Prescriptions: New oxycodone-acetaminophen 5-325 mg tablet 1 tab PO Q6H PRN PRN (Reason: Pain) 5 Days Qty: 20 0RF No Action hydroxyzine pamoate 50 mg capsule 50 mg PO TID PRN (Reason: anxiety) Qty: 20 0RF ketoprofen 75 mg capsule 75 mg PO Q6H PRN (Reason: Migraine Symptoms) Qty: 100 1RF Rx Instructions: 1 cap PO at on set of headache max of 3 in 24 hours, max 20 per month propranolol 10 mg tablet 10 mg PO TID PRN (Reason: anxiety) Qty: 60 1RF sertraline 50 mg tablet 50 mg PO QDAY Qty: 30 1RF pantoprazole 40 mg tablet,delayed release (DR/EC) 40 mg PO .breakfast 30 Days Qty: 30 2RF Rx Instructions: Take 1 hour before breakfast. ursodiol 300 mg capsule 300 mg PO BID Qty: 180 1RF prochlorperazine maleate [Compazine] 10 mg tablet 10 mg PO BID PRN (Reason: Migraine Symptoms) Qty: 30 1RF albuterol sulfate 2.5 mg /3 mL (0.083 %) solution for nebulization 2.5 mg inhalation Q6H PRN (Reason: shortness of breath or wheezing) Qty: 90 1RF amlodipine 5 mg tablet 5 mg PO DAILY Qty: 90 0RF levothyroxine 137 mcg tablet 137 mcg PO DAILY Qty: 90 1RF Xarelto 20 mg tablet 20 mg PO ONCE Qty: 30 1RF Rx Instructions: must administer with a meal/food hydrocortisone acetate 25 mg suppository 25 mg [place] BID Qty: 42 0RF (DME) compress.stocking,knee,reg,lrg Misc See Rx Instructions .MEDSUPPLY Qty: 2 1RF Rx Instructions: wear daily for venous insufficiency 20-30 mmHg Stand Alone Forms: ED Work / School Excuse Primary Care Provider: Jose Alejandro London Referrals: Jose Alejandro London MD [Primary Care Provider] - Cassidy Moore MD [Med Staff - Active Staff] - 3-5 Days if not improving Print Language: Lithuanian Disposition Disposition: Home, Self Care Discharge Date/Time: 03/21/24 11:48
[2024-03-21] MEDS: oxyCODONE 5 MG Tablet PO (11:22)
[2024-03-21 11:45] VITALS: BP 137/84; PULSE 78; RESP 18; TEMP 36.6; O2SAT 100
== END 2024-03-21 11:48 | disposition home or self-care (01) ==
PROVIDERS: Emergency Provider Emergency Medicine; PCP Internal Medicine; Visit Provider Emergency Medicine
DX: N83.201 Unspecified ovarian cyst, right side (principal); I10 Essential (primary) hypertension; M54.9 Dorsalgia, unspecified; G89.29 Other chronic pain; F17.210 Nicotine dependence, cigarettes, uncomplicated; Z79.01 Long term (current) use of anticoagulants; Z79.890 Hormone replacement therapy; Z79.899 Other long term (current) drug therapy; Z86.718 Personal history of other venous thrombosis and embolism; Z90.710 Acquired absence of both cervix and uterus; Z90.5 Acquired absence of kidney
CPT/HCPCS: 99283

== ENCOUNTER → 2024-03-25 | Outpatient (CLI) | payer MEDICAID, SELFPAY ==
--- NOTE | 2024-03-25 14:01 | VDLE_ITS ---
Reason For Study: Pain RLE RIGHT GSV is normal. Rt CFV and Rt FV prox have bright intraluminal echoes consistent with CHRONIC DVT Rt FV mid and distal are compressible. POP V is compressible, phasic, and INCOMPETENT for greater than 1.0 second. T/P Trunk is compressible. PTV is compressible. RT PerV is compressible. Procedure This is a venous duplex using B-mode, color flow and spectral Doppler. Exam performed in department. A preliminary report was called and/or faxed to Britany RUSH. VL/Venous Duplex US, Unilateral Interpretation Summary Chronic deep vein thrombosis is noted in the right common femoral vein, femoral vein. Positive for reflux in the right popliteal vein Ordering Physician: Britany Nuñez Referring Physician: Jose Alejandro London Performed By: Nicolasa Alexandre, RDCS, RVT
== END | disposition home or self-care (01) ==
LOC: CVS 14:01
PROVIDERS: PCP Internal Medicine; Referring Provider Physician Assistant; Visit Provider Physician Assistant
DX: M79.604 Pain in right leg (principal); M79.89 Other specified soft tissue disorders
CPT/HCPCS: 93971

== ENCOUNTER 2024-04-02 09:14 | Emergency (ER) | payer MEDICAID, SELFPAY ==
[2024-04-02 09:14] VITALS: BP 122/91; PULSE 84; RESP 14; TEMP 36.3; O2SAT 100; BMI 39.2
[2024-04-02] MEDS: Ondansetron 4 MG/2 ML Vial IV (09:50)
[2024-04-02] MEDS: oxyCODONE 5 MG Tablet PO (09:50)
[2024-04-02 09:58] LABS: Absolute Lymphocyte Count 1.09 X10^3/uL (0.83-4.51); Absolute Neutrophil Count 3.1 X10^3/uL (2.0-7.7); Basophil# 0.03 X10^3/uL; Basophil% 0.6 % (0-1); Eosinophil# 0.22 X10^3/uL; Eosinophils% 4.6 % (0-5); Hematocrit 43.3 % (37-47); Hemoglobin 14.4 g/dL (12.0-15.0); Lymphocyte # 1.09 X10^3/ul (0.83-4.51); Lymphocyte % 22.8 % (19-41); Mean Corp Hgb Conc 33.3 g/dL (32-36); Mean Corpuscular Hgb 28.5 pg (27.0-32.0); Mean Corpuscular Volume 85.7 fL (81-99); Mean Platelet Vol. 10.9 fl (6.2-12.0); Monocyte# 0.37 X10^3/uL; Monocyte% 7.7 % (0-10); NRBC Flagged by Analyzer 0 % (0-5); Neutrophil # 3.06 X10^3/uL (2.7-7.7); Neutrophil % 63.9 % (47-70); Platelet Count 181 K/mm3 (150-450); RBC Distribution Width CV 12.6 % (11.6-14.6); RBC Distribution Width SD 39.2 fl (35.1-43.9); Red Blood Count 5.05 M/mm3 (4.2-5.4); White Blood Count 4.8 K/mm3 (4.4-11.0)
[2024-04-02 10:02] LABS: Bacteria 0 SEEN /hpf (None Seen); Mucous, Urine 0 SEEN /hpf (<or=2+); Red Blood Cells-Urine 0 SEEN /hpf (0-5); White Blood Cells 0 SEEN /hpf (0-5)
[2024-04-02 10:03] LABS: Color, Urine Yellow (Yellow); Glucose, Dipstick Normal (Normal); Ketone-Dipstick Negative (Negative); Leukocyte Esterase-Dipstick Negative /ul (Negative); Nitrite-Dipstick Negative (Negative); Occult Blood-Urine Negative /ul (Negative); Protein-Dipstick Negative (Negative); Specific Gravity, Urine 1.015 (1.002-1.030); Urine Bilirubin Dipstick Negative (Negative); Urine Clarity Clear (Clear); Urine Urobilinogen Normal (Normal)
[2024-04-02 10:10] LABS: Squamous Epithelial Cells - UA 0-5 SEEN /hpf (5-10)
[2024-04-02 10:21] LABS: ALB/GLOB Ratio 1.1 RATIO (0.9-2.4); AST(SGOT) 12 U/L (15-37); Alanine Aminotransfer ALT/SGPT 30 U/L (13-56); Albumin, Serum 3.8 g/dL (3.2-5.0); Alkaline Phosphatase 70 U/L (45-117); Anion Gap 6 (5-15); BUN 6 mg/dL (7-18); BUN/Creat Ratio 7.3 RATIO (10-20); Chloride 106 mmol/L (98-107); Creatinine, Serum 0.82 mg/dL (0.55-1.02); EST Glomerular Filtration Rate 83 mL/min (>60); Est Glom Filt Rate - Afr Amer 101 mL/min (>60); Estimated Creatinine Clearance 119.21 ml/min; Globulin 3.6 g/dL (2.2-4.2); Glucose 120 mg/dL (74-106); Lipase 29 U/L (13-75); Potassium 3.6 mmol/L (3.5-5.1); Protein, Total 7.4 g/dL (6.4-8.2); Sodium Level 138 mmol/L (136-145)
[2024-04-02 10:39] LABS: Lactic Acid 2.1 mmol/L (0.4-1.9)
[2024-04-02 10:57] VITALS: BP 101/66; BP 104/75; BP 124/71; PULSE 67; PULSE 68; PULSE 74
[2024-04-02] MEDS: 0.9% Normal Saline (1000mL) 1,000 ML 999 ML IV (11:13)
[2024-04-02 11:14] VITALS: BP 119/62; PULSE 75; RESP 16; O2SAT 98
[2024-04-02] MEDS: Methocarbamol 500 MG Tablet 1000 MG PO (12:17)
[2024-04-02 13:00] VITALS: BP 122/62; PULSE 70; RESP 16; TEMP 37; O2SAT 96
[2024-04-02 13:54] LABS: Reflex Lactate? Y
== END 2024-04-02 13:39 | disposition home or self-care (01) ==
PROVIDERS: Emergency Provider Emergency Medicine; PCP Internal Medicine; Visit Provider Emergency Medicine
DX: R10.31 Right lower quadrant pain (principal); J42 Unspecified chronic bronchitis; G89.29 Other chronic pain; E87.20 Acidosis, unspecified; I95.1 Orthostatic hypotension; R10.2 Pelvic and perineal pain; E06.3 Autoimmune thyroiditis; K76.0 Fatty (change of) liver, not elsewhere classified; R11.0 Nausea; I10 Essential (primary) hypertension; M54.9 Dorsalgia, unspecified; F41.9 Anxiety disorder, unspecified; F17.210 Nicotine dependence, cigarettes, uncomplicated; Z79.890 Hormone replacement therapy; Z79.899 Other long term (current) drug therapy
CPT/HCPCS: 76830; 80053; 81001; 83605; 83690; 85025; 96361; 96374; 99284; J7030; A4216; J2405

== ENCOUNTER 2024-04-08 12:47 | Emergency (ER) | payer MEDICAID, SELFPAY ==
[2024-04-08 12:49] VITALS: BP 148/88; PULSE 108; RESP 18; TEMP 36.9; O2SAT 98; BMI 39.4
--- NOTE | 2024-04-08 13:15 | RAD_ITS ---
STUDY: X-RAY - SACRUM/COCCYX REASON FOR EXAM: Female, 38 years old. Pain TECHNIQUE: 3 view(s) of the sacrum and coccyx were obtained. COMPARISON: None. FINDINGS: Normal bilateral sacroiliac joints. Normal visualized sacral ala and fused sacral bodies. Normal sacrococcygeal junction with a normal angulation. Normal coccygeal segments. The presacral soft tissue structures are unremarkable. Phleboliths. RAD/Sacrum-Coccyx min 2 Views IMPRESSION: Normal x-rays of the sacrum and coccyx. Electronically Signed: Christiano Eduardo MD at 13:45 EST ,
--- NOTE | 2024-04-08 13:35 | EDS_ITS ---
HPI <ADRI Catherine - Last Filed: 04/08/24 15:04> History of Present Illness Chief Complaint: Fall Narrative Narrative: Patient presenting today with pain to her low back/tailbone after an injury occurred on Monday when she was walking down wooden stairs and missed the last step causing her to fall onto her bottom. She did not hit her head, she denies any other injury. She reports pain with sitting, she also notices pain with trying to having a bowel movement from sitting on the toilet. She denies bowel/bladder incontinence or saddle paresthesia. PFSH <ADRI Catherine - Last Filed: 04/08/24 15:04> [facility] Medical History Herniated nucleus pulposus, C4-5 PCOS (polycystic ovarian syndrome) Deep vein blood clot of right lower extremity Chronic bronchitis Right foot sprain Right ankle sprain ADD (attention deficit disorder) Breast pain, right Contact with or exposure to other viral diseases Dermatitis PONV (postoperative nausea and vomiting) Leg cramps Anxiety and depression Left shoulder pain Depression Chronic pain Cancer Arthritis Fatty liver Easy bruising Restless legs Back pain Injury of head and neck Syncope Fibromyalgia History of pain when walking Hypertension History of echocardiogram History of stress test Cardiology follow-up encounter Localized swelling, mass and lump, neck Cervical lymphadenopathy Heartburn Chronic RUQ pain Right femoral fracture Tinnitus Vertigo Ectopic cardiac beats Palpitations RUQ abdominal pain Cervical radiculopathy Chronic back pain Left-sided low back pain with left-sided sciatica Hypocalcemia Tobacco abuse Bronchitis Morbid obesity Post herpetic neuralgia NICOLÁS (generalized anxiety disorder) ADHD (attention deficit hyperactivity disorder), combined type Numbness and tingling of both upper extremities Numbness of both lower extremities Migraine without aura and with status migrainosus, not intractable History of gestational diabetes Almaz's thyroiditis History of acne Thyroid disease Melanoma Home Medications ?Medication ?Instructions ?Recorded ?Last Taken ?Type hydroxyzine pamoate 50 mg capsule 50 mg PO TID PRN anxiety #20 caps 05/30/22 Unknown Rx ursodiol 300 mg capsule 300 mg PO BID #180 caps 08/22/23 Unknown Rx ketoprofen 75 mg capsule 75 mg PO Q6H PRN Migraine Symptoms 11/01/23 Unknown Rx #100 caps prochlorperazine maleate 10 mg 10 mg PO BID PRN Migraine Symptoms 01/01/24 Unknown Rx tablet (Compazine) #30 tabs albuterol sulfate 2.5 mg/3 mL 2.5 mg (3 mL) inhalation Q6H PRN 01/16/24 Unknown Rx (0.083 %) solution for nebulization shortness of breath or wheezing #90 mL amlodipine 5 mg tablet 5 mg PO DAILY bp #90 tabs 02/05/24 Unknown Rx levothyroxine 137 mcg tablet 137 mcg PO DAILY synthroid #90 tabs 02/09/24 Unknown Rx propranolol 10 mg tablet 10 mg PO TID PRN anxiety #60 tabs 03/08/24 Unknown Rx sertraline 50 mg tablet 50 mg PO QDAY #30 tabs 03/08/24 Unknown Rx pantoprazole 40 mg tablet,delayed 40 mg PO .breakfast 1 month #30 03/12/24 Unknown Rx release tabs hydrocortisone acetate 25 mg 25 mg WV BID #42 ea 03/13/24 Unknown Rx rectal suppository compress.stocking,knee,reg,lrg #2 ea 03/21/24 Unknown Rx oxycodone-acetaminophen 5 mg-325 1 tab PO Q6H PRN PRN Pain 5 days 03/21/24 Unknown Rx mg tablet #20 TABLETS hydrocortisone 1 % topical cream 1 applic WV BID #28.4 grams 03/25/24 Unknown Rx with perineal applicator elagolix 150 mg tablet (Orilissa) 150 mg PO QDAY #30 tabs 04/01/24 Unknown Rx ibuprofen 800 mg tablet 800 mg PO Q8H PRN pain #60 tabs 04/02/24 Unknown Rx methocarbamol 750 mg tablet 750 mg PO QHS PRN pain #30 tabs 04/02/24 Unknown Rx ondansetron 4 mg disintegrating 4 mg PO Q8H PRN PRN Nausea #10 tabs 04/02/24 Unknown Rx tablet leuprolide 3.75 mg intramuscular 3.75 mg IM QMONTH #1 ea 04/04/24 Unknown Rx syringe kit (Lupron Depot) oxycodone-acetaminophen 5 mg-325 1 tab PO Q6H PRN PRN Pain 3 days 04/08/24 Unknown Rx mg tablet #12 TABLETS Allergy/AdvReac Type Severity Reaction Status Date / Time latex Allergy Itching Verified 04/08/24 12:48 naproxen Allergy Unknown Verified 04/08/24 12:48 Penicillins (PCN) Allergy Rash Verified 04/08/24 12:48 escitalopram (From Lexapro) AdvReac Intermediate Lightheaded Verified 04/08/24 12:48 sertraline (From Zoloft) AdvReac Intermediate Dizzy & Verified 04/08/24 12:48 Headache NSAIDS (Non-Steroidal AdvReac Mild Other Verified 04/08/24 12:48 Anti-Inflamma dicyclomine (From Bentyl) AdvReac Unknown Unknown Verified 04/08/24 12:48 hydrocodone (From Vicodin) AdvReac Other Verified 04/08/24 12:48 ketorolac (From Toradol) AdvReac Other Verified 04/08/24 12:48 Family History Grandmother Diabetes Hypertension Hypercholesterolemia Thyroid disorder Mother Family history of skin cancer Other High cholesterol Surgical History History of carpal tunnel surgery of right wrist History of surgery on lower extremity Status post incision and drainage (~04/15/22) History of total vaginal hysterectomy (TVH) (~03/22/22) History of thyroidectomy History of surgery on arm Social History Smoking Status: Current every day smoker tobacco type: cigarettes Tobacco: How many years used: 13 Electronic Cigarette Use: not used second hand exposure: No alcohol intake: current alcohol intake frequency: holidays/special occasions only substance use type: does not use caffeine: Yes what type of physical activity do you participate in: none seatbelt use: always do you feel safe at home: Yes additional social history: emmy HAMILTON <ADRI Catherine - Last Filed: 04/08/24 15:04> [facility] Constitutional Constitutional ED: Denies chills or fever(s) Cardiovascular Cardiovascular: Denies chest pain Respiratory/Chest Respiratory/Chest: Denies dyspnea Gastrointestinal Gastrointestinal: Denies abdominal pain, nausea or vomiting Genitourinary Genitourinary ED: Denies dysuria or urinary frequency Musculoskeletal Musculoskeletal: Reports back pain Integumentary Denies rash Neurologic Neurologic: Denies paresthesias EXAM <ADRI Catherine - Last Filed: 04/08/24 15:04> Physical Exam Const Vital Signs: 04/08/24 12:49 04/08/24 12:57 04/08/24 14:28 Temperature 98.5 F 98 F Temperature Source Temporal Pulse Rate 108 H 87 Respiratory Rate 18 16 Respiratory Effort Normal Non-Labored Blood Pressure 148/88 H 145/69 H Blood Pressure Mean 108 94 Pulse Ox 98 98 Oxygen Delivery Method Room Air Room Air Positive well nourished, well developed and no apparent distress General Appearance ED: well developed HEENT Reports normocephalic and head/scalp atraumatic Mouth ED: Yes moist mucous membranes normal Eyes PERRL and EOMs intact bilaterally Neck full ROM and supple Chest Wall inspection of chest normal Resp normal respiratory effort and clear to auscultation bilaterally Cardio regular rate and regular rhythm GI soft to palpation, non-tender, non-distended and no masses Back/Spine normal ROM and normal to inspection Back/Spine Narrative: Bruising and slight swelling to the sacrum. Extremity normal to inspection and full ROM Neuro oriented x3, CN's II-XII intact bilaterally, moves all extremities, no focal motor deficits and no sensory deficits noted Sensorium / Orientation: awake and alert Psych mental status grossly normal and thought process normal Skin no rashes or lesions noted and no wounds <Dr. Germán Kulkarni DO - Last Filed: 04/08/24 14:27> Physical Exam Const Vital Signs: 04/08/24 12:49 04/08/24 12:57 04/08/24 14:28 Temperature 98.5 F 98 F Temperature Source Temporal Pulse Rate 108 H 87 Respiratory Rate 18 16 Respiratory Effort Normal Non-Labored Blood Pressure 148/88 H 145/69 H Blood Pressure Mean 108 94 Pulse Ox 98 98 Oxygen Delivery Method Room Air Room Air MDM <ADRI Catherine - Last Filed: 04/08/24 15:04> MDM MDM Narrative Medical decision making narrative: Patient presenting today with pain to her sacrum/tailbone after falling down a hard wooden step on Monday and landing on her bottom. X-ray will be obtained. She has been trying OTC with minimal relief, I am unable to give her any narcotics or because she did drive, I will give her a prescription for Percocet. X-rays negative for any acute findings. Supportive care measures were discussed, advised her to get a doughnut to sit on. She was given a short course of Percocet for pain. She does take stool softeners daily. Encouraged that she follow-up with her PCP and she will be discharged home in stable condition. I have personally performed a face to face assessment of the patient and have reviewed the DEIDRE Note. I performed a substantive portion of the visit including all aspects of the following. My segura findings include: History is 38-year-old female presenting to the emergency room with sacrococcygeal pain. She fell down wooden steps on Monday landing in a sitting position. No blood with bowel movements. She notes however pain when she has movements. No neurologic deficits. No muscular weakness. No sensory loss. Exam is patient is neurovascularly intact. Medical Decison Making my independent interpretation of the plain films of the sacral coccyx region is no acute fracture. Radiology concurs. Patient be discharged home with supportive care. We can write for a few Percocet for pain control. Follow-up as needed return for worsening or concerns Radiography X-Ray: Read by ED Physician Diagnostic Testing: Clinical Impression(s) from Imaging Studies Sacrum and Coccyx X-Ray 04/08/24 13:15 IMPRESSION: Normal x-rays of the sacrum and coccyx. Electronically Signed: Christiano Eduardo MD at 13:45 EST Reading Location ID and State: [address] [place] [address] , Service support , <Dr. Germán Kulkarni, DO - Last Filed: 04/08/24 14:27> [facility] Narrative Medical decision making narrative: Patient presenting today with pain to her sacrum/tailbone after falling down a hard wooden step on Monday and landing on her bottom. X-ray will be obtained. She has been trying OTC with minimal relief, I am unable to give her any narcotics or because she did drive, I will give her a prescription for Percocet. I have personally performed a face to face assessment of the patient and have reviewed the DEIDRE Note. I performed a substantive portion of the visit including all aspects of the following. My segura findings include: History is 38-year-old female presenting to the emergency room with sacrococcygeal pain. She fell down wooden steps on Monday landing in a sitting position. No blood with bowel movements. She notes however pain when she has movements. No neurologic deficits. No muscular weakness. No sensory loss. Exam is patient is neurovascularly intact. Medical Decison Making my independent interpretation of the plain films of the sacral coccyx region is no acute fracture. Radiology concurs. Patient be discharged home with supportive care. We can write for a few Percocet for pain control. Follow-up as needed return for worsening or concerns History & Record Review Discussion w/independent historian: Patient Radiography Diagnostic Testing: Clinical Impression(s) from Imaging Studies Sacrum and Coccyx X-Ray 04/08/24 13:15 IMPRESSION: Normal x-rays of the sacrum and coccyx. Electronically Signed: Christiano Eduardo MD at 13:45 EST Reading Location ID and State: [address] [place] [address] , Service support , Discharge Plan Triage Chief Complaint: Fall ED Midlevel Provider: Sravanthi Jacob ED Provider: Germán Kulkarni Dx/Rx/DC Orders Clinical Impression: Fall, Contusion of sacrococcygeal region Instructions: ED Coccyx or Sacrum Contusion Prescriptions: New oxycodone-acetaminophen 5-325 mg tablet 1 tab PO Q6H PRN PRN (Reason: Pain) 3 Days Qty: 12 0RF No Action hydroxyzine pamoate 50 mg capsule 50 mg PO TID PRN (Reason: anxiety) Qty: 20 0RF ketoprofen 75 mg capsule 75 mg PO Q6H PRN (Reason: Migraine Symptoms) Qty: 100 1RF Rx Instructions: 1 cap PO at on set of headache max of 3 in 24 hours, max 20 per month propranolol 10 mg tablet 10 mg PO TID PRN (Reason: anxiety) Qty: 60 1RF sertraline 50 mg tablet 50 mg PO QDAY Qty: 30 1RF pantoprazole 40 mg tablet,delayed release (DR/EC) 40 mg PO .breakfast 30 Days Qty: 30 2RF Rx Instructions: Take 1 hour before breakfast. oxycodone-acetaminophen 5-325 mg tablet 1 tab PO Q6H PRN PRN (Reason: Pain) 5 Days Qty: 20 0RF ondansetron 4 mg tablet,disintegrating 4 mg PO Q8H PRN PRN (Reason: Nausea) Qty: 10 0RF ursodiol 300 mg capsule 300 mg PO BID Qty: 180 1RF prochlorperazine maleate [Compazine] 10 mg tablet 10 mg PO BID PRN (Reason: Migraine Symptoms) Qty: 30 1RF albuterol sulfate 2.5 mg /3 mL (0.083 %) solution for nebulization 2.5 mg inhalation Q6H PRN (Reason: shortness of breath or wheezing) Qty: 90 1RF amlodipine 5 mg tablet 5 mg PO DAILY Qty: 90 0RF levothyroxine 137 mcg tablet 137 mcg PO DAILY Qty: 90 1RF hydrocortisone acetate 25 mg suppository 25 mg WV BID Qty: 42 0RF (DME) compress.stocking,knee,reg,lrg Misc See Rx Instructions .MEDSUPPLY Qty: 2 1RF Rx Instructions: wear daily for venous insufficiency 20-30 mmHg hydrocortisone 1 % cream with perineal applicator 1 applic WV BID Qty: 28.4 0RF Orilissa 150 mg tablet 150 mg PO QDAY Qty: 30 12RF ibuprofen 800 mg tablet 800 mg PO Q8H PRN (Reason: pain) Qty: 60 2RF methocarbamol 750 mg tablet 750 mg PO QHS PRN (Reason: pain) Qty: 30 3RF Lupron Depot 3.75 mg syringe kit 3.75 mg IM QMONTH Qty: 1 12RF Primary Care Provider: Jose Alejandro London Referrals: Jose Alejandro London MD [Primary Care Provider] - As Needed Print Language: Belarusian Disposition Disposition: Home, Self Care Discharge Date/Time: 04/08/24 14:33
[2024-04-08 14:28] VITALS: BP 145/69; PULSE 87; RESP 16; TEMP 36.6; O2SAT 98
== END 2024-04-08 14:33 | disposition home or self-care (01) ==
PROVIDERS: Emergency Provider Emergency Medicine; PCP Internal Medicine; Visit Provider Emergency Medicine
DX: S30.0XXA Contusion of lower back and pelvis, initial encounter (principal); J42 Unspecified chronic bronchitis; W10.9XXA Fall (on) (from) unspecified stairs and steps, initial encounter; I10 Essential (primary) hypertension; M54.9 Dorsalgia, unspecified; E06.3 Autoimmune thyroiditis; G89.29 Other chronic pain; Z79.02 Long term (current) use of antithrombotics/antiplatelets; Z79.890 Hormone replacement therapy; Z79.899 Other long term (current) drug therapy; F17.210 Nicotine dependence, cigarettes, uncomplicated
CPT/HCPCS: 72220; 99282

== ENCOUNTER → 2024-04-09 | Outpatient (CLI) | payer MEDICAID, SELFPAY ==
--- NOTE | 2024-04-09 15:37 | VDLE_ITS ---
Reason For Study: Right leg swelling RIGHT LEFT GSV is normal. CFV is compressible, spontaneous, phasic, Rt CFV and Rt FV prox have bright competent, and demonstrates normal intraluminal echoes consistent with CHRONIC augmentation. DVT Rt FV mid and distal are compressible. POP V is compressible, phasic, and INCOMPETENT for greater than 1.0 second. T/P Trunk is compressible. PTV is compressible. RT PerV is compressible. Procedure This is a venous duplex using B-mode, color flow and spectral Doppler. Exam performed in department. [facility] VL/Venous Duplex US, Unilateral Interpretation Summary Chronic deep vein thrombosis is noted in the right common femoral vein, femoral vein. Positive for reflux in the right popliteal vein Ordering Physician: Britany Nuñez Referring Physician: Jose Alejandro London Performed By: Angie Solomno RVT
== END | disposition home or self-care (01) ==
LOC: CVS 15:36
PROVIDERS: PCP Internal Medicine; Referring Provider Physician Assistant; Visit Provider Physician Assistant
DX: M79.89 Other specified soft tissue disorders (principal); M79.604 Pain in right leg
CPT/HCPCS: 93971

== ENCOUNTER 2024-04-23 16:43 | Emergency (ER) | payer MEDICAID, SELFPAY ==
[2024-04-23 16:46] VITALS: BP 128/70; PULSE 82; RESP 20; TEMP 36.7; O2SAT 100; BMI 39.5
[2024-04-23 17:53] VITALS: BP 132/78; PULSE 76; RESP 19; O2SAT 100
--- NOTE | 2024-04-23 18:42 | CT_ITS ---
STUDY: CTA CHEST REASON FOR EXAM: Female, 38 years old. left back pain, hx of dvt RADIATION DOSAGE (If Supplied By Facility): CTDIvol = ( 27.68 ) mGy, DLP = ( 576.67 ) mGycm TECHNIQUE: The examination was performed with the intravenous administration of IV 100mL Isovue-370. Post-processing of the angiographic images was performed, with multiplanar reformation and 3D reconstruction. Individualized dose optimization techniques were used for this CT. COMPARISON: February 05, 2023 FINDINGS: Normal enhancement of the main pulmonary artery and right and left pulmonary arteries. Normal enhancement of the bilateral peripheral pulmonary arteries. There is no demonstrated pulmonary embolism. Normal thoracic aorta and visualized great vessels. There is no demonstrated aortic dissection. Normal heart and pericardium. Normal mediastinum. Normal hilar regions. Normal visualized trachea and bronchi. The lungs are well expanded. There is mild multifocal subsegmental atelectasis in both lower lobes Normal pleura. Normal chest wall structures. Dorsal spine demonstrates degenerative change. Normal visualized upper abdomen. CT/CTA Chest W/WO Contrast IMPRESSION: Mild multifocal subsegmental atelectasis in the lower lobes. No evidence for pulmonary embolus Electronically Signed: Nima Castro MD at 20:12 EST ,
--- NOTE | 2024-04-23 18:42 | EKG12_ITS ---
Test Reason : PAIN Blood Pressure : */* mmHG Vent. Rate : 73 BPM Atrial Rate : 73 BPM P-R Int : 174 ms QRS Dur : 80 ms QT Int : 388 ms P-R-T Axes : 22 43 31 degrees QTcB Int : 427 ms Normal sinus rhythm Normal ECG Confirmed by Sandro Olesn ([id number]), metropolitan editor DIANE SILVER ([id number]) on 04/25/2024 11:02:58 AM Referred By: Confirmed By: Sandro Olsen
--- NOTE | 2024-04-23 19:01 | ED.RN ---
PT STATES SHE DOES NOT WANT THE MORPHINE. STATES THE LAST TIME HERE SOMEONE PUSHED IT TOO FAST AND I HAD A BAD REACTION. PT RETURNED. DR. VALENZUELA
[2024-04-23 19:04] LABS: Absolute Lymphocyte Count 1.48 X10^3/uL (0.83-4.51); Absolute Neutrophil Count 3.5 X10^3/uL (2.0-7.7); Basophil# 0.04 X10^3/uL; Basophil% 0.7 % (0-1); Eosinophil# 0.22 X10^3/uL; Eosinophils% 3.8 % (0-5); Hematocrit 42.4 % (37-47); Lymphocyte # 1.48 X10^3/ul (0.83-4.51); Lymphocyte % 25.7 % (19-41); Mean Corpuscular Hgb 28.2 pg (27.0-32.0); Mean Corpuscular Volume 85.5 fL (81-99); Mean Platelet Vol. 10.8 fl (6.2-12.0); Monocyte# 0.46 X10^3/uL; NRBC Flagged by Analyzer 0 % (0-5); Neutrophil # 3.53 X10^3/uL (2.7-7.7); Neutrophil % 61.5 % (47-70); Platelet Count 194 K/mm3 (150-450); RBC Distribution Width CV 12.6 % (11.6-14.6); Red Blood Count 4.96 M/mm3 (4.2-5.4); White Blood Count 5.8 K/mm3 (4.4-11.0)
--- NOTE | 2024-04-23 19:04 | EX.ED.DYSGE1 ---
HPI History of Present Illness Chief Complaint: Other, Pain/Inj Narrative Narrative: Patient is a 38-year-old female with past medical history of PCOS, ADD, anxiety, depression, fibromyalgia, DVT recently was taken off Xarelto in her right lower extremity, who presents to the emergency department with a chief complaint of abnormal x-ray of her chest in the outpatient setting. Patient states that yesterday she normally will crack her back and she states that she did so and she felt something pop although this did not feel like it normally does for her. She states that she had severe pain all night and into today she went to an urgent care where she had x-rays obtained and there was a red as concern for contusion therefore they sent her here for further evaluation management. Patient states that she is short of breath and it hurts when she takes a deep breath. States that she did have a DVT in her right lower extremity and has been off Xarelto about a month she states that she had a hypercoagulable workup that was noted be normal and they are unsure exactly why she developed a DVT in her right lower extremity. Patient denies recent travels. [facility] Medical History Herniated nucleus pulposus, C4-5 PCOS (polycystic ovarian syndrome) Deep vein blood clot of right lower extremity Chronic bronchitis Right foot sprain Right ankle sprain ADD (attention deficit disorder) Breast pain, right Contact with or exposure to other viral diseases Dermatitis PONV (postoperative nausea and vomiting) Leg cramps Anxiety and depression Left shoulder pain Depression Chronic pain Cancer Arthritis Fatty liver Easy bruising Restless legs Back pain Injury of head and neck Syncope Fibromyalgia History of pain when walking Hypertension History of echocardiogram History of stress test Cardiology follow-up encounter Localized swelling, mass and lump, neck Cervical lymphadenopathy Heartburn Chronic RUQ pain Right femoral fracture Tinnitus Vertigo Ectopic cardiac beats Palpitations RUQ abdominal pain Cervical radiculopathy Chronic back pain Left-sided low back pain with left-sided sciatica Hypocalcemia Tobacco abuse Bronchitis Morbid obesity Post herpetic neuralgia NICOLÁS (generalized anxiety disorder) ADHD (attention deficit hyperactivity disorder), combined type Numbness and tingling of both upper extremities Numbness of both lower extremities Migraine without aura and with status migrainosus, not intractable History of gestational diabetes Almaz's thyroiditis History of acne Thyroid disease Melanoma Home Medications ?Medication ?Instructions ?Recorded ?Last Taken ?Type ursodiol 300 mg capsule 300 mg PO BID #180 caps 08/22/23 Unknown Rx ketoprofen 75 mg capsule 75 mg PO Q6H PRN Migraine Symptoms 11/01/23 Unknown Rx #100 caps prochlorperazine maleate 10 mg 10 mg PO BID PRN Migraine Symptoms 01/01/24 Unknown Rx tablet (Compazine) #30 tabs albuterol sulfate 2.5 mg/3 mL 2.5 mg (3 mL) inhalation Q6H PRN 01/16/24 Unknown Rx (0.083 %) solution for nebulization shortness of breath or wheezing #90 mL amlodipine 5 mg tablet 5 mg PO DAILY bp #90 tabs 02/05/24 Unknown Rx levothyroxine 137 mcg tablet 137 mcg PO DAILY synthroid #90 tabs 02/09/24 Unknown Rx pantoprazole 40 mg tablet,delayed 40 mg PO .breakfast 1 month #30 03/12/24 Unknown Rx release tabs hydrocortisone acetate 25 mg 25 mg RI BID #42 ea 03/13/24 Unknown Rx rectal suppository compress.stocking,knee,reg,lrg #2 ea 03/21/24 Unknown Rx hydrocortisone 1 % topical cream 1 applic RI BID #28.4 grams 03/25/24 Unknown Rx with perineal applicator methocarbamol 750 mg tablet 750 mg PO QHS PRN pain #30 tabs 04/02/24 Unknown Rx ondansetron 4 mg disintegrating 4 mg PO Q8H PRN PRN Nausea #10 tabs 04/02/24 Unknown Rx tablet leuprolide 3.75 mg intramuscular 3.75 mg IM QMONTH #1 ea 04/04/24 Unknown Rx syringe kit (Lupron Depot) oxycodone-acetaminophen 5 mg-325 1 tab PO Q6H PRN PRN Pain 3 days 04/08/24 Unknown Rx mg tablet #12 TABLETS atomoxetine 40 mg capsule 40 mg PO QAM #30 caps 04/16/24 Unknown Rx hydroxyzine HCl 25 mg tablet 25 mg PO BID PRN anxiety #30 tabs 04/16/24 Unknown Rx sertraline 100 mg tablet 100 mg PO QDAY #30 tabs 04/16/24 Unknown Rx lidocaine 5 % topical patch 1 patch topical DAILY #15 ea 04/23/24 Unknown Rx (Lidoderm) ondansetron 4 mg disintegrating 4 mg PO Q6H PRN nausea and 04/23/24 Unknown Rx tablet vomiting #20 tabs oxycodone-acetaminophen 5 mg-325 1 tab PO Q6H PRN pain 3 days #12 04/23/24 Unknown Rx mg tablet (Percocet) tabs Allergy/AdvReac Type Severity Reaction Status Date / Time latex Allergy Itching Verified 04/23/24 16:46 naproxen Allergy Unknown Verified 04/23/24 16:46 Penicillins (PCN) Allergy Rash Verified 04/23/24 16:46 escitalopram (From Lexapro) AdvReac Intermediate Lightheaded Verified 04/23/24 16:46 sertraline (From Zoloft) AdvReac Intermediate Dizzy & Verified 04/23/24 16:46 Headache NSAIDS (Non-Steroidal AdvReac Mild Other Verified 04/23/24 16:46 Anti-Inflamma dicyclomine (From Bentyl) AdvReac Unknown Unknown Verified 04/23/24 16:46 hydrocodone (From Vicodin) AdvReac Other Verified 04/23/24 16:46 ketorolac (From Toradol) AdvReac Other Verified 04/23/24 16:46 Family History Grandmother Diabetes Hypertension Hypercholesterolemia Thyroid disorder Mother Family history of skin cancer Other High cholesterol Surgical History History of carpal tunnel surgery of right wrist History of surgery on lower extremity Status post incision and drainage (~04/15/22) History of total vaginal hysterectomy (TVH) (~03/22/22) History of thyroidectomy History of surgery on arm Social History Smoking Status: Current every day smoker tobacco type: cigarettes Tobacco: How many years used: 13 Electronic Cigarette Use: not used second hand exposure: No alcohol intake: current alcohol intake frequency: holidays/special occasions only substance use type: does not use caffeine: Yes what type of physical activity do you participate in: none seatbelt use: always do you feel safe at home: Yes additional social history: emmy HAMILTON ED ROS Narrative Constitutional: Denies any fevers, chills, headaches, lightness, dizziness Eyes: Denies change in vision double vision blurry vision Cardiovascular: Denies chest pain or palpitations Respiratory: Complains of shortness of breath as noted above and left-sided rib pain as noted above Abdomen: Denies nausea vomiting diarrhea : Denies urinary symptoms Neurological: Denies numbness, weakness, tingling Musculoskeletal: Complains of left-sided back pain as noted above Skin: Denies any rashes or lesions EXAM Physical Exam Narrative Exam Narrative: General: Patient lying in bed did appear to be uncomfortable secondary to her pain Head: Atraumatic, normocephalic Eyes: PERRL bilateral, EOMI biotic no conjunctival injection noted Neck: Soft, supple, trachea midline Cardiovascular: Regular rate and rhythm no murmurs gallops rubs noted Respiratory: Clear to auscultation bilaterally Abdomen: Soft, nondistended, nontender to palpation, bowel sounds present x 4 Musculoskeletal: Patient has tenderness palpation of the left lateral rib cage Extremities: +5/5 strength noted in the bilateral upper and lower extremities Neurological: Patient follow commands knew that she was at [facility] years 2023 Skin: Warm, dry, intact Const Vital Signs: 04/23/24 16:46 04/23/24 17:42 04/23/24 17:53 Temperature 98.1 F Temperature Source Temporal Pulse Rate 82 76 Respiratory Rate 20 H 19 H Respiratory Effort Normal Non-Labored Respiratory Pattern Normal Blood Pressure 128/70 H 132/78 H Blood Pressure Mean 89 96 Pulse Ox 100 100 Oxygen Delivery Method Room Air Room Air MDM MDM MDM Narrative Medical decision making narrative: Patient is a 38-year-old female who presents to the emergency department from urgent care with a chief complaint of concern for pulmonary contusion. Patient will have a workup performed here on the differential diagnose includes Melamin to pulmonary contusion, pneumonia, atelectasis, rib fracture, PE. Once workup is obtained reviewed she will be reevaluated. Patient's EKG was reviewed and independently interpreted by myself which showed sinus rhythm with a rate of 73 bpm. Patient's CBC reviewed and was largely unremarkable no evidence of leukocytosis white blood count normal at 5.8, hemoglobin of 14, platelet count normal at 194. Patient's INR normal at 1, PT of 12.7. Patient sodium normal at 139, potassium normal at 4, creatinine normal at 0.76. Patient's troponin was normal at 4. Patient's test was negative, CTA chest with contrast showed no evidence of pulmonary embolism multilobar focal subsegmental atelectasis in the lower lobes is likely secondary to her not taking deep breaths secondary to the pain. I did discuss results with the patient and she was encouraged that she needs to take deep breaths therefore she will be given incentive spirometer and she is advised that she needs to do so to avoid developing pneumonia. We will attacker pain with multimodal therapy such as Lidoderm patches, muscle laxer, Tylenol for mild to moderate pain and for severe pain Percocet Zofran. She is vies to follow-up with her primary care physician as well and return with worsening symptoms or other concerns. She is agreeable this plan she would like to go home all question concerns answered she was discharged home in stable condition. She was vies not to operate anything under the influence of these medications. Lab Data Labs: Laboratory Results - last 24 hr 04/23/24 18:50 WBC 5.8 RBC 4.96 Hgb 14.0 Hct 42.4 MCV 85.5 MCH 28.2 MCHC 33.0 RDW Std Deviation 39.0 RDW Coeff of Mikel 12.6 Plt Count 194 MPV 10.8 Immature Gran % (Auto) 0.300 Neut % (Auto) 61.5 Lymph % (Auto) 25.7 [place] % (Auto) 8.0 Eos % (Auto) 3.8 Baso % (Auto) 0.7 Absolute Neuts (auto) 3.5 Absolute Lymphs (auto) 1.48 Nucleated RBC % 0 PT 12.7 INR 1.0 APTT 22.5 L Sodium 139 Potassium 4.0 Chloride 107 Carbon Dioxide 29.0 Anion Gap 2 L BUN 9 Creatinine 0.76 Estim Creat Clear Calc 129.35 Est GFR (MDRD) Af Amer 111 Est GFR (MDRD) Non-Af 91 BUN/Creatinine Ratio 11.9 Glucose 107 H Calcium 9.2 Troponin I High Sens 4 Serum , Qual NEGATIVE Radiography Diagnostic Testing: Clinical Impression(s) from Imaging Studies Chest CTA 04/23/24 18:42 IMPRESSION: Mild multifocal subsegmental atelectasis in the lower lobes. No evidence for pulmonary embolus Electronically Signed: Nima Castro MD at 20:12 EST , Discharge Plan Triage Chief Complaint: Other, Pain/Inj ED Provider: Shaq Laureano Dx/Rx/DC Orders Clinical Impression: Rib pain on left side, Back pain Prescriptions: New ondansetron 4 mg tablet,disintegrating 4 mg PO Q6H PRN (Reason: nausea and vomiting) Qty: 20 0RF lidocaine [Lidoderm] 5 % adhesive patch,medicated 1 patch topical DAILY Qty: 15 0RF Rx Instructions: leave on most painful area for up to 12 hrs oxycodone-acetaminophen [Percocet] 5-325 mg tablet 1 tab PO Q6H PRN (Reason: pain) 3 Days Qty: 12 0RF No Action ketoprofen 75 mg capsule 75 mg PO Q6H PRN (Reason: Migraine Symptoms) Qty: 100 1RF Rx Instructions: 1 cap PO at on set of headache max of 3 in 24 hours, max 20 per month pantoprazole 40 mg tablet,delayed release (DR/EC) 40 mg PO .breakfast 30 Days Qty: 30 2RF Rx Instructions: Take 1 hour before breakfast. hydroxyzine HCl 25 mg tablet 25 mg PO BID PRN (Reason: anxiety) Qty: 30 1RF atomoxetine 40 mg capsule 40 mg PO QAM Qty: 30 1RF sertraline 100 mg tablet 100 mg PO QDAY Qty: 30 1RF ondansetron 4 mg tablet,disintegrating 4 mg PO Q8H PRN PRN (Reason: Nausea) Qty: 10 0RF oxycodone-acetaminophen 5-325 mg tablet 1 tab PO Q6H PRN PRN (Reason: Pain) 3 Days Qty: 12 0RF ursodiol 300 mg capsule 300 mg PO BID Qty: 180 1RF prochlorperazine maleate [Compazine] 10 mg tablet 10 mg PO BID PRN (Reason: Migraine Symptoms) Qty: 30 1RF albuterol sulfate 2.5 mg /3 mL (0.083 %) solution for nebulization 2.5 mg inhalation Q6H PRN (Reason: shortness of breath or wheezing) Qty: 90 1RF amlodipine 5 mg tablet 5 mg PO DAILY Qty: 90 0RF levothyroxine 137 mcg tablet 137 mcg PO DAILY Qty: 90 1RF hydrocortisone acetate 25 mg suppository 25 mg RI BID Qty: 42 0RF (DME) compress.stocking,knee,reg,lrg Misc See Rx Instructions .MEDSUPPLY Qty: 2 1RF Rx Instructions: wear daily for venous insufficiency 20-30 mmHg hydrocortisone 1 % cream with perineal applicator 1 applic RI BID Qty: 28.4 0RF methocarbamol 750 mg tablet 750 mg PO QHS PRN (Reason: pain) Qty: 30 3RF Lupron Depot 3.75 mg syringe kit 3.75 mg IM QMONTH Qty: 1 12RF Primary Care Provider: Jose Alejandro London Referrals: Jose Alejandro London MD [Primary Care Provider] - Activity Restrictions/Additional Instructions: Take prescriptions as prescribed use incentive spirometry as we discussed here to prevent from developing pneumonia. Return for worsening symptoms or other concerns. Follow-up your primary care physician outpatient setting. Use Tylenol for mild to moderate pain and use the Percocet for severe pain. Use your at home muscle relaxers that you already have. Do not operate anything under the influence of the narcotics Print Language: Malay Disposition Disposition: Home, Self Care
[2024-04-23 19:19] LABS: Prothrombin Time (Protime)PT. 12.7 SECONDS (11.7-14.9)
[2024-04-23] MEDS: HYDROcodone Bitartrate/Apap 5/325 Tablet PO (19:19)
[2024-04-23] MEDS: Ondansetron ODT 4 MG Tablet PO (19:19)
[2024-04-23 19:20] LABS: Partial Thromboplast Time 22.5 Seconds (24.1-36.2)
[2024-04-23 19:21] LABS: Anion Gap 2 (5-15); BUN 9 mg/dL (7-18); BUN/Creat Ratio 11.9 RATIO (10-20); Calcium,Total 9.2 mg/dL (8.5-10.1); Chloride 107 mmol/L (98-107); Creatinine, Serum 0.76 mg/dL (0.55-1.02); EST Glomerular Filtration Rate 91 mL/min (>60); Est Glom Filt Rate - Afr Amer 111 mL/min (>60); Estimated Creatinine Clearance 129.35 ml/min; Glucose 107 mg/dL (74-106); Sodium Level 139 mmol/L (136-145); Troponin-I HS 4 pg/mL (3.0-54.0)
[2024-04-23 19:48] LABS: Internal QC Validated? YES +Cl - CLEAR BKGD; Pregnancy, Serum, hCG Quali. NEGATIVE Negative
[2024-04-23 21:00] VITALS: BP 118/75; PULSE 88; RESP 19; O2SAT 98
[2024-04-23 21:06] VITALS: BP 118/75; PULSE 88; RESP 19; TEMP 36.7; O2SAT 97
--- NOTE | 2024-04-23 21:33 | ED.RN ---
checked that pt has IS at dc
== END 2024-04-23 21:51 | disposition home or self-care (01) ==
PROVIDERS: Emergency Provider Emergency Medicine; PCP Internal Medicine; Visit Provider Emergency Medicine
DX: R07.82 Intercostal pain (principal); J42 Unspecified chronic bronchitis; M54.9 Dorsalgia, unspecified; I10 Essential (primary) hypertension; F32.A Depression, unspecified; F41.9 Anxiety disorder, unspecified; M79.7 Fibromyalgia; F17.210 Nicotine dependence, cigarettes, uncomplicated; Z79.890 Hormone replacement therapy; Z79.899 Other long term (current) drug therapy; Z86.718 Personal history of other venous thrombosis and embolism
CPT/HCPCS: J2405; 71101; 71275; 72072; 80048; 84484; 84703; 85025; 85610; 85730; 93005; 99284; Q9967; A4216

== ENCOUNTER → 2024-04-23 | Outpatient (CLI) | payer MEDICAID, SELFPAY ==
--- NOTE | 2024-04-23 14:34 | RAD_ITS ---
EXAM: XR THORACIC SPINE, 3 VIEWS CLINICAL INDICATION: PAIN, HEARD A ''POP'' TECHNIQUE: Frontal, lateral and swimmer''s views of the thoracic spine. COMPARISON: No relevant prior studies available. FINDINGS: VERTEBRAE: Normal. Preserved vertebral body height. No fracture. No spondylolisthesis. Preservation of the normal thoracic kyphosis. DISC SPACES: Disc spaces are maintained. LUNGS AND PLEURAL SPACES: Right basilar parenchymal density may represent pneumonia or pulmonary contusion. RAD/Thoracic Spine 3 Views IMPRESSION: 1. No acute thoracic spine abnormality. 2. Right lower lobe infiltrate/contusion Electronically Signed: Ang Kohler MD at 15:39 EST ,
--- NOTE | 2024-04-23 14:34 | RAD_ITS ---
EXAM: XR LEFT RIBS AND AP CHEST, 3 OR MORE VIEWS CLINICAL INDICATION: PAIN, HEARD A ''POP'' TECHNIQUE: Frontal and oblique views of the left ribs and frontal view of the chest. COMPARISON: No relevant prior studies available. FINDINGS: LUNGS AND PLEURAL SPACES: Tenting of the lateral aspect of the right diaphragm may represent pleural parenchymal scarring or pulmonary infiltrate. HEART: Normal. Normal heart size. MEDIASTINUM: No mediastinal or hilar mass. BONES/JOINTS: No acute abnormality. RAD/Ribs Uni Min 3V w/PA Chest IMPRESSION: Intact left ribs. As above. Electronically Signed: Ang Kohler MD at 15:47 EST ,
== END | disposition home or self-care (01) ==
LOC: MTRAD 14:32
PROVIDERS: PCP Internal Medicine; Referring Provider Nurse Practitioner Family; Visit Provider Nurse Practitioner Family
DX: S20.20XA Contusion of thorax, unspecified, initial encounter (principal); X58.XXXA Exposure to other specified factors, initial encounter
CPT/HCPCS: 71101; 72072

== ENCOUNTER → 2024-04-25 | Outpatient (CLI) | payer MEDICAID, SELFPAY ==
--- NOTE | 2024-04-25 10:59 | VDLE_ITS ---
Reason For Study: RLE SWELLING RIGHT GSV is normal. CFV is compressible, spontaneous, phasic, competent and demonstrates normal augmentation. FV is compressible, phasic demonstrating INCOMPETENCY > 1.0 second. POP V is compressible, phasic demonstrating INCOMPETENCY > 1.0 second. T/P Trunk is compressible. PTV is compressible. RT PerV is compressible. Procedure This is a venous duplex using B-mode, color flow and spectral Doppler. Exam performed in department. A preliminary report was called and/or faxed to Britany RUSH @ [phone] @ 11:40 AM. VL/Venous Duplex US, Unilateral Interpretation Summary Deep veins of the right lower extremity are patent and compressible segmentally . There is no evidence of right lower extremity deep vein thrombosis. The right great sapheno us vein appears patent and compressible segmentally. Reflux noted in the right femoral vein, popliteal vein. Unchanged appearance of common femoral vein. Ordering Physician: Britany Nuñez Referring Physician: Rickey Lobato Efewongbe Performed By: Babs Quinones, RDCS, RVT
== END | disposition home or self-care (01) ==
LOC: CVS 10:58
PROVIDERS: PCP Internal Medicine; Referring Provider Internal Medicine; Visit Provider Internal Medicine
DX: I82.401 Acute embolism and thrombosis of unspecified deep veins of right lower extremity (principal); M79.89 Other specified soft tissue disorders; I87.2 Venous insufficiency (chronic) (peripheral)
CPT/HCPCS: 93971

== ENCOUNTER 2024-05-01 07:06 | Day surgery (SDC) | payer MEDICAID, SELFPAY ==
[2024-04-05 12:37] LABS: Erythrocyte Sedimentation Rate 3 mm/hr (0-30)
[2024-04-08 11:09] LABS: ANTINUCLEAR ANTIBODIES DIRECT Negative (Negative)
[2024-04-11 17:07] LABS: Anti-Cardiolipin Ab, IgA, Qn < 9 APL U/mL (0-11); Anti-Cardiolipin Ab, IgG, Qn < 9 GPL U/mL (0-14); Anti-Cardiolipin Ab, IgM, Qn < 9 MPL U/mL (0-12); Anti-Thrombin 3 AG, Immunol 78 % (72-124); Antithrombin 3 Function 105 % (75-135); Complement C3 139 mg/dL (82-167); Complement CH50 > 60 U/mL (>41); Dilute Prothrombin Time (dPT) 35.7 sec (0.0-47.6); Dilute Russell Viper Venom 31.6 sec (0.0-47.0); Interpretation Comment: (.); PTT-LA 28.3 sec (0.0-43.5); Protein C, Functional 126 % (73-180); Protein S, Free 92 % (61-136); Protein S, Funtional 82 % (63-140); Protein S, Total 81 % (60-150); Thrombin Time 18.5 sec (0.0-23.0); dPT Confirm Ratio 1.06 Ratio (0.00-1.34)
[2024-04-30 08:14] VITALS: BMI 39.2
[2024-05-01 07:21] LABS: Hematocrit 41.2 % (37-47); Hemoglobin 13.6 g/dL (12.0-15.0); Mean Corpuscular Hgb 28.5 pg (27.0-32.0); Mean Corpuscular Volume 86.2 fL (81-99); Mean Platelet Vol. 10.5 fl (6.2-12.0); Platelet Count 173 K/mm3 (150-450); RBC Distribution Width CV 12.5 % (11.6-14.6); RBC Distribution Width SD 39.3 fl (35.1-43.9); Red Blood Count 4.78 M/mm3 (4.2-5.4); White Blood Count 5.4 K/mm3 (4.4-11.0)
[2024-05-01 07:34] LABS: Anion Gap 3 (5-15); BUN 9 mg/dL (7-18); Calcium,Total 8.9 mg/dL (8.5-10.1); Chloride 109 mmol/L (98-107); Creatinine, Serum 0.75 mg/dL (0.55-1.02); EST Glomerular Filtration Rate 92 mL/min (>60); Est Glom Filt Rate - Afr Amer 111 mL/min (>60); Estimated Creatinine Clearance 129.17 ml/min; Glucose 124 mg/dL (74-106); Potassium 3.8 mmol/L (3.5-5.1); Sodium Level 140 mmol/L (136-145)
--- NOTE | 2024-05-01 07:57 | PCM.HP.STD ---
HPI - General HPI Narrative AUSTIN RIVERA, is a 39 F who presents with bilateral LE edema, right ankle venous skin changes, right lower extremity DVT. [facility] Medical History Herniated nucleus pulposus, C4-5 PCOS (polycystic ovarian syndrome) Deep vein blood clot of right lower extremity Chronic bronchitis Right foot sprain Right ankle sprain ADD (attention deficit disorder) Breast pain, right Contact with or exposure to other viral diseases Dermatitis PONV (postoperative nausea and vomiting) Leg cramps Anxiety and depression Left shoulder pain Depression Chronic pain Cancer Arthritis Fatty liver Easy bruising Restless legs Back pain Injury of head and neck Syncope Fibromyalgia History of pain when walking Hypertension History of echocardiogram History of stress test Cardiology follow-up encounter Localized swelling, mass and lump, neck Cervical lymphadenopathy Heartburn Chronic RUQ pain Right femoral fracture Tinnitus Vertigo Ectopic cardiac beats Palpitations RUQ abdominal pain Cervical radiculopathy Chronic back pain Left-sided low back pain with left-sided sciatica Hypocalcemia Tobacco abuse Bronchitis Morbid obesity Post herpetic neuralgia NICOLÁS (generalized anxiety disorder) ADHD (attention deficit hyperactivity disorder), combined type Numbness and tingling of both upper extremities Numbness of both lower extremities Migraine without aura and with status migrainosus, not intractable History of gestational diabetes Almaz's thyroiditis History of acne Thyroid disease Melanoma Home Medications ?Medication ?Instructions ?Recorded ?Last Taken ?Type ursodiol 300 mg capsule 300 mg PO BID #180 caps 08/22/23 Unknown Rx ketoprofen 75 mg capsule 75 mg PO Q6H PRN Migraine Symptoms 11/01/23 Unknown Rx #100 caps prochlorperazine maleate 10 mg 10 mg PO BID PRN Migraine Symptoms 01/01/24 Unknown Rx tablet (Compazine) #30 tabs albuterol sulfate 2.5 mg/3 mL 2.5 mg (3 mL) inhalation Q6H PRN 01/16/24 Unknown Rx (0.083 %) solution for nebulization shortness of breath or wheezing #90 mL amlodipine 5 mg tablet 5 mg PO DAILY bp #90 tabs 02/05/24 05/01/24 Rx levothyroxine 137 mcg tablet 137 mcg PO DAILY synthroid #90 tabs 02/09/24 05/01/24 Rx pantoprazole 40 mg tablet,delayed 40 mg PO .breakfast 1 month #30 03/12/24 Unknown Rx release tabs hydrocortisone acetate 25 mg 25 mg [place] BID #42 ea 03/13/24 Unknown Rx rectal suppository compress.stocking,knee,reg,lrg #2 ea 03/21/24 Unknown Rx hydrocortisone 1 % topical cream 1 applic [place] BID #28.4 grams 03/25/24 Unknown Rx with perineal applicator methocarbamol 750 mg tablet 750 mg PO QHS PRN pain #30 tabs 04/02/24 Unknown Rx ondansetron 4 mg disintegrating 4 mg PO Q8H PRN PRN Nausea #10 tabs 04/02/24 Unknown Rx tablet leuprolide 3.75 mg intramuscular 3.75 mg IM QMONTH #1 ea 04/04/24 Unknown Rx syringe kit (Lupron Depot) oxycodone-acetaminophen 5 mg-325 1 tab PO Q6H PRN PRN Pain 3 days 04/08/24 Unknown Rx mg tablet #12 TABLETS atomoxetine 40 mg capsule 40 mg PO QAM #30 caps 04/16/24 Unknown Rx hydroxyzine HCl 25 mg tablet 25 mg PO BID PRN anxiety #30 tabs 04/16/24 Unknown Rx sertraline 100 mg tablet 100 mg PO QDAY #30 tabs 04/16/24 Unknown Rx lidocaine 5 % topical patch 1 patch topical DAILY #15 ea 04/23/24 Unknown Rx (Lidoderm) ondansetron 4 mg disintegrating 4 mg PO Q6H PRN nausea and 04/23/24 Unknown Rx tablet vomiting #20 tabs oxycodone-acetaminophen 5 mg-325 1 tab PO Q6H PRN pain 3 days #12 04/23/24 Unknown Rx mg tablet (Percocet) tabs Allergy/AdvReac Type Severity Reaction Status Date / Time latex Allergy Itching Verified 04/23/24 16:46 naproxen Allergy Unknown Verified 04/23/24 16:46 Penicillins (PCN) Allergy Rash Verified 04/23/24 16:46 escitalopram (From Lexapro) AdvReac Intermediate Lightheaded Verified 04/23/24 16:46 sertraline (From Zoloft) AdvReac Intermediate Dizzy & Verified 04/23/24 16:46 Headache NSAIDS (Non-Steroidal AdvReac Mild Other Verified 04/23/24 16:46 Anti-Inflamma dicyclomine (From Bentyl) AdvReac Unknown Unknown Verified 04/23/24 16:46 hydrocodone (From Vicodin) AdvReac Other Verified 04/23/24 16:46 ketorolac (From Toradol) AdvReac Other Verified 04/23/24 16:46 Family History Grandmother Diabetes Hypertension Hypercholesterolemia Thyroid disorder Mother Family history of skin cancer Other High cholesterol Surgical History History of carpal tunnel surgery of right wrist History of surgery on lower extremity Status post incision and drainage (~04/15/22) History of total vaginal hysterectomy (TVH) (~03/22/22) History of thyroidectomy History of surgery on arm Social History Smoking Status: Current every day smoker tobacco type: cigarettes Tobacco: How many years used: 13 Electronic Cigarette Use: not used second hand exposure: No alcohol intake: current alcohol intake frequency: holidays/special occasions only substance use type: does not use caffeine: Yes what type of physical activity do you participate in: none seatbelt use: always do you feel safe at home: Yes additional social history: emmy HAMILTON Constitutional Constitutional: Denies chills, fever(s), frequent falls, lethargy or weakness Eyes Eyes: Denies blind spots, change in vision or loss of vision ENT HEENT: Denies bleeding gums, hoarseness or sore throat Cardiovascular Cardiovascular: Denies abdominal pain, bluish discoloration of hand/feet, chest pain with activity, claudication, cold extremities, cyanosis, dyspnea on exertion, erythema on extremities, irregular heart rhythm, leg edema, leg ulcers, numbness in extremities or weakness in extremities Respiratory/Chest Respiratory/Chest: Denies cough, excessive phlegm production, shortness of breath at rest, shortness of breath with exertion or wheezing Gastrointestinal Gastrointestinal: Denies anorexia, change in stool character, constipation, diarrhea, melena or rectal bleeding Genitourinary Genitourinary: Denies dysuria or hematuria Musculoskeletal Musculoskeletal: Denies abnormal gait Integumentary Integumentary: Reports other Details: ; Denies erythema, non-healing lesions or wounds Neurologic Neurologic: Denies abnormal speech, focal weakness, headache(s), loss of vision, numbness, paresthesias or sensory deficit Hematologic/Lymphatic Hematologic/Lymphatic: Denies easy bleeding, easy bruising or lymphadenopathy Vital Signs Vital Signs Vital Signs: Weight Weight: 243 lb Body Mass Index (BMI) 39.2 Physical Exam Const alert, oriented x3, no apparent distress and healthy appearing General Appearance: cooperative; Negative for combative or lethargic Orientation / Consciousness: awake Exam Limitations: no limitations HEENT Head and Scalp: normocephalic and atraumatic Eyes EOMs intact bilaterally General Eye: normal appearance of both eyes Neck full ROM, no lymphadenopathy, thyroid normal and No no carotid bruits General: trachea midline; Negative for lymphadenopathy or tenderness Thyroid: thyroid normal Lymph Lymphatic: Negative for no lymphadenopathy noted Resp normal respiratory effort, no use of accessory muscles and clear to auscultation bilaterally Effort and Inspection: Negative for labored, stridor or audible wheezes Cardio regular rate, regular rhythm and no murmurs Peripheral Pulses: brachial pulses present, radial pulses present, femoral pulses present, popliteal pulses present, posterior tibial pulses present and dorsalis pedis pulses present Back/Spine Cervical Spine: cervical ROM normal Extremity full ROM, normal capillary refill and no clubbing, cyanosis or edema Skin no rashes or lesions noted and no wounds Neuro oriented x3, CN's II-XII intact bilaterally, no focal motor deficits and no sensory deficits noted Psych thought process normal, cooperative, affect normal, speech normal and activity/motor behavior normal Results Lab / Micro Data 05/01/24 07:10 05/01/24 07:10 Labs: Laboratory Results - last 24 hr 05/01/24 07:10: WBC 5.4, RBC 4.78, Hgb 13.6, Hct 41.2, MCV 86.2, MCH 28.5, MCHC 33.0, RDW Std Deviation 39.3, RDW Coeff of Mikel 12.5, Plt Count 173, MPV 10.5, Sodium 140, Potassium 3.8, Chloride 109 H, Carbon Dioxide 28.0, Anion Gap 3 L, BUN 9, Creatinine 0.75, Estim Creat Clear Calc 129.17, Est GFR (MDRD) Af Amer 111, Est GFR (MDRD) Non-Af 92, BUN/Creatinine Ratio 12.0, Glucose 124 H, Calcium 8.9 Assessment & Plan Assessment/Plan (1) DVT (deep venous thrombosis): QUALIFIERS: DVT location: lower extremity Affected thrombotic vein of extremity: unspecified lower extremity distal vein Chronicity: acute Laterality: right Qualified Code(s): I82.4Z1 - Acute embolism and thrombosis of unspecified deep veins of right distal lower extremity PLAN: -venogram
--- NOTE | 2024-05-01 09:08 | PCM.OPRPT ---
Operative Report (Standard) Operative Information Date of Procedure: 05/01/24 Pre-Operative Diagnosis: DVT Post-Operative Diagnosis: same Surgery/Procedure Performed: venogram IVC IVUS IVC, bilateral common iliac, bilateral external iliac veins angioplasty right common/external iliac vein heel gouger: No Type of Anesthesia: Local and Sedation,Conscious Procedure Start Time: 08:00 Procedure Stop Time: 09:00 Select all DRAINS/GRAFTS/IMPLANTS that apply: None Estimated Blood Loss: 5 Specimen collected: No Description of surgery: HPI: Patient is a 39-year-old female with prior deep venous thrombosis in bilateral lower extremity chronic venous insufficiency. She presents for venogram to assess for central venous obstruction contributing to her symptoms and prior thrombus. Description of procedure: Upon obtaining form consent and verification correct patient procedure site patient taken to the [facility] where she was positioned prepped and draped in usual sterile fashion. Timeout was performed, sedation administered Versed and fentanyl. Skin overlying the right common femoral vein was Nestabs 1% lidocaine the vessel accessed with micropuncture needle wire under ultrasound guidance. This was exchanged for micropuncture sheath routine injection ilio caval venogram was performed which revealed satisfactory positioning with no extravasation or dissection. This also revealed small caliber external iliac vein with what appeared to be chronic webbing. Through the micropuncture sheath Bentson wire was advanced into the vena cava and the micropuncture sheath exchanged for an 8 Vietnamese sheath. Through the 8 Vietnamese sheath an intravascular ultrasound probe was advanced and recorded pullback performed from the IVC, right common iliac vein, right external iliac vein. This revealed no significant compression and confirmed small caliber external iliac vein with chronic appearing thrombus and webbing. Next skin overlying the left common femoral vein was Nestabs 1% lidocaine and the vessel accessed with micropuncture needle wire and ultrasound guidance. This was exchanged for micropuncture sheath through which hand-injection ilio caval venogram was performed revealing satisfactory positioning no extravasation or dissection. This revealed a widened left common iliac vein. Through this a Bentson wire is advanced the micropuncture sheath exchanged for a short 8 Vietnamese sheath. Intravascular ultrasound probe was then advanced and recorded pullback performed of the IVC, left common vein, left external leg vein. This revealed less than 50% compression of the superior aspect of the common iliac vein with a dilated segment inferiorly. Given the degree of compression was not felt this was appropriate for treatment however the right external iliac vein would benefit from balloon angioplasty. Patient was in heparinized allowed to circulate for 3 minutes. An 8 x 40 Bard conquest angioplasty balloon was then advanced in position and inflated to nominal for multiple inflations across the diseased segment. The balloon was then withdrawn and hand-injection subtraction venography confirmed satisfactory vessel response with no extravasation or dissection and brisk contrast transit. 8 Vietnamese sheath was then withdrawn manner pressure until hemostasis was obtained. The patient was then taken the recovery area with plan discharged to home. Surgical Findings: See above Complications Complications: No
== END 2024-05-01 12:30 | disposition home or self-care (01) ==
PROVIDERS: Physician Assistant; PCP Internal Medicine; Referring Provider Surgery Trauma Surgery; Visit Provider Surgery Trauma Surgery
DX: I82.521 Chronic embolism and thrombosis of right iliac vein (principal); I10 Essential (primary) hypertension; E06.3 Autoimmune thyroiditis; Z79.890 Hormone replacement therapy; Z79.899 Other long term (current) drug therapy; F17.210 Nicotine dependence, cigarettes, uncomplicated
CPT/HCPCS: 86225; 86235 ×5; 36010; 36415; 37248; 37252; 37253; 75825; 76937; 80048; 81240; 81241; 85027; 85300; 85301; 85303; 85305; 85306; 85652; 86038; 86147; 86160; 86162; 99152; 99153; C1753; C1769; C1894; Q9967; J2405

== ENCOUNTER 2024-05-06 09:53 | Emergency (ER) | payer MEDICAID, SELFPAY ==
[2024-05-06 09:53] VITALS: BP 124/79; PULSE 76; RESP 15; TEMP 36.3; O2SAT 100
--- NOTE | 2024-05-06 10:23 | EDS_ITS ---
HPI History of Present Illness Chief Complaint: Abd Pain [facility] Medical History Herniated nucleus pulposus, C4-5 PCOS (polycystic ovarian syndrome) Deep vein blood clot of right lower extremity Chronic bronchitis Right foot sprain Right ankle sprain ADD (attention deficit disorder) Breast pain, right Contact with or exposure to other viral diseases Dermatitis PONV (postoperative nausea and vomiting) Leg cramps Anxiety and depression Left shoulder pain Depression Chronic pain Cancer Arthritis Fatty liver Easy bruising Restless legs Back pain Injury of head and neck Syncope Fibromyalgia History of pain when walking Hypertension History of echocardiogram History of stress test Cardiology follow-up encounter Localized swelling, mass and lump, neck Cervical lymphadenopathy Heartburn Chronic RUQ pain Right femoral fracture Tinnitus Vertigo Ectopic cardiac beats Palpitations RUQ abdominal pain Cervical radiculopathy Chronic back pain Left-sided low back pain with left-sided sciatica Hypocalcemia Tobacco abuse Bronchitis Morbid obesity Post herpetic neuralgia NICOLÁS (generalized anxiety disorder) ADHD (attention deficit hyperactivity disorder), combined type Numbness and tingling of both upper extremities Numbness of both lower extremities Migraine without aura and with status migrainosus, not intractable History of gestational diabetes Almaz's thyroiditis History of acne Thyroid disease Melanoma Home Medications ?Medication ?Instructions ?Recorded ?Last Taken ?Type ursodiol 300 mg capsule 300 mg PO BID #180 caps 08/22/23 Unknown Rx ketoprofen 75 mg capsule 75 mg PO Q6H PRN Migraine Symptoms 11/01/23 Unknown Rx #100 caps albuterol sulfate 2.5 mg/3 mL 2.5 mg (3 mL) inhalation Q6H PRN 01/16/24 Unknown Rx (0.083 %) solution for nebulization shortness of breath or wheezing #90 mL levothyroxine 137 mcg tablet 137 mcg PO DAILY synthroid #90 tabs 02/09/24 05/01/24 Rx pantoprazole 40 mg tablet,delayed 40 mg PO .breakfast 1 month #30 03/12/24 Unknown Rx release tabs hydrocortisone acetate 25 mg 25 mg MN BID #42 ea 03/13/24 Unknown Rx rectal suppository compress.stocking,knee,reg,lrg #2 ea 03/21/24 Unknown Rx hydrocortisone 1 % topical cream 1 applic MN BID #28.4 grams 03/25/24 Unknown Rx with perineal applicator methocarbamol 750 mg tablet 750 mg PO QHS PRN pain #30 tabs 04/02/24 Unknown Rx leuprolide 3.75 mg intramuscular 3.75 mg IM QMONTH #1 ea 04/04/24 Unknown Rx syringe kit (Lupron Depot) atomoxetine 40 mg capsule 40 mg PO QAM #30 caps 04/16/24 Unknown Rx hydroxyzine HCl 25 mg tablet 25 mg PO BID PRN anxiety #30 tabs 04/16/24 Unknown Rx sertraline 100 mg tablet 100 mg PO QDAY #30 tabs 04/16/24 Unknown Rx lidocaine 5 % topical patch 1 patch topical DAILY #15 ea 04/23/24 Unknown Rx (Lidoderm) clopidogrel 75 mg tablet (Plavix) 75 mg PO DAILY #90 tabs 05/01/24 Unknown Rx amlodipine 5 mg tablet 5 mg PO DAILY for blood pressure 05/02/24 Unknown Rx #90 TABLETS prochlorperazine maleate 10 mg 10 mg PO BID PRN for migraine #30 05/02/24 Unknown Rx tablet TABLETS albuterol sulfate 90 mcg/actuation 2 puff inhalation Q6H PRN 05/03/24 Unknown Rx aerosol inhaler shortness of breath or wheezing #8.5 grams ondansetron 4 mg disintegrating 4 mg PO Q8H PRN PRN 05/03/24 Unknown History tablet tizanidine 4 mg tablet 4 mg PO TID 05/03/24 Unknown History varenicline 0.5 mg (11)-1 mg (42) See Rx Instructions PO PER PKG DIR 05/03/24 Unknown Rx tablets in a dose pack (Chantix #53 tabs Starting Month Box) ondansetron 4 mg disintegrating 4 mg PO Q8H PRN PRN Nausea #10 tabs 05/06/24 Unknown Rx tablet Allergy/AdvReac Type Severity Reaction Status Date / Time latex Allergy Itching Verified 05/06/24 09:55 naproxen Allergy Unknown Verified 05/06/24 09:55 Penicillins (PCN) Allergy Rash Verified 05/06/24 09:55 escitalopram (From Lexapro) AdvReac Intermediate Lightheaded Verified 05/06/24 09:55 sertraline (From Zoloft) AdvReac Intermediate Dizzy & Verified 05/06/24 09:55 Headache NSAIDS (Non-Steroidal AdvReac Mild Other Verified 05/06/24 09:55 Anti-Inflamma dicyclomine (From Bentyl) AdvReac Unknown Unknown Verified 05/06/24 09:55 hydrocodone (From Vicodin) AdvReac Other Verified 05/06/24 09:55 ketorolac (From Toradol) AdvReac Other Verified 05/06/24 09:55 Family History Grandmother Diabetes Hypertension Hypercholesterolemia Thyroid disorder Mother Family history of skin cancer Other High cholesterol Surgical History History of carpal tunnel surgery of right wrist History of surgery on lower extremity Status post incision and drainage (~04/15/22) History of total vaginal hysterectomy (TVH) (~03/22/22) History of thyroidectomy History of surgery on arm Social History Smoking Status: Current every day smoker tobacco type: cigarettes Tobacco: How many years used: 13 Electronic Cigarette Use: not used second hand exposure: No alcohol intake: current alcohol intake frequency: holidays/special occasions only substance use type: does not use caffeine: Yes what type of physical activity do you participate in: none seatbelt use: always do you feel safe at home: Yes additional social history: emmy EXAM Physical Exam Const Vital Signs: 05/06/24 09:53 05/06/24 12:04 Temperature 97.4 F L Temperature Source Temporal Pulse Rate 76 74 Respiratory Rate 15 16 Blood Pressure 124/79 H 138/72 H Blood Pressure Mean 94 94 Pulse Ox 100 97 Oxygen Delivery Method Room Air Room Air MDM MDM MDM Narrative Medical decision making narrative: HISTORY OF PRESENT ILLNESS: 39-year-old female presents with right sided abdominal pain. Notes this began on Monday. She further states she has had nausea. Denies fever. Endorses recent venogram. Endorses intermittent pain of the right lower quadrant the abdomen. Denies vaginal bleeding, urinary complaints, changes in bowel habits. Endorses history of hysterectomy, unilateral oophorectomy. No she does right ovary. She denies any pain in her bicep to me. REVIEW OF SYSTEMS: Pertinent positives: Abdominal pain Pertinent negatives: As per HPI PHYSICAL EXAM: Nursing triage notes reviewed, Vital signs reviewed Constitutional: please see mdm HENT: MMM Eyes: Pupils equal round and reactive to light, Extraocular muscles intact Neck: No stridor, no JVD, full neck ROM Lungs: Clear to auscultation, No wheezing or rales. No increased work of breathing, no conversational dyspnea, no accessory muscle use, no nasal flaring. No respiratory distress noted Heart: Regular rate and rhythm, No murmurs, No rubs and No gallops, 2+ distal pulses (radial, femoral, posterior tibial) in all extremities Abdomen: Soft, right lower quadrant TTP but no rigidity, rebound or guarding, no obvious peritoneal signs, no palpable pulsatile abdominal masses, no auscultated abdominal bruit : No CVAT Extremities: No edema Neuro: No new focal neurological deficits, cranial nerves II through XII intact, 5/5 strength in all present extremities. Intact sensation to light touch in all present extremities, 2+ reflexes bilateral patella tendons. Skin: No rash or lesions noted MEDICAL DECISION MAKING: Chief Complaint: Abdominal pain External records reviewed: Reviewed prior imaging studies: Reviewed CT scan of the abdomen pelvis from January 2024 which showed mild hepatomegaly and splenomegaly, right kidney cyst, Factors affecting care: PCOS, hypertension, Social determinants of health: history of tobacco abuse History obtained from others: none Consults: none [facility] Narrative: The patient was initially hemodynamically stable, afebrile and nontoxic- appearing. Exam right lower quadrant TTP. Venipuncture site in right groin was clean dry intact. I considered the following differential diagnosis: AAA, small bowel obstruction, abdominal perforation, appendicitis, pancreatitis, hepatobiliary pathology (acute cholecystitis), mesenteric ischemia, pathology (ie nephrolithiasis, pyelonephritis). Venous abnormality secondary to operation. ALL IMAGES (IF OBTAINED) HAVE BEEN PERSONALLY REVIEWED AND INTERPRETED BY MYSELF. CT scan abdomen pelvis showed no evidence of obvious L life or limb threatening abnormality did show right ovarian cyst which could be the cause of patient's pain. CBC without leukocytosis, severe anemia, no thrombocytopenia. BMP without evidence of significant electrolyte abnormalities, no anion gap, no acute kidney injury. LFTs show no evidence of hepatobiliary pathology. Urinalysis shows no evidence of urinary inflammation suggestive of UTI Repeat abdominal exam remained benign. I considered obtaining a pelvic ultrasound however thought this was not indicated given the patient's history of hysterectomy and oophorectomy. Her ovarian cyst may be causing her pain but there is no signs of a hemorrhagic cyst, significant anemia, or threat of life or reproductive threatening etiology given her prior surgical history. Patient is encouraged to continue take oral NSAIDs. Follow-up with [facility] as well as her PCP for further evaluation and treatment as an outpatient. The patient and/or family, caregivers express understanding. The patient and/or family, caregivers agrees with the plan. Shared decision making: I will have a discussion with the patient and or visitors regarding risk/benefits of further testing or admission. They will be made aware of of the risk/benefits inherent in this decision they will be given the opportunity to voice understanding. Total critical care time today provided was at least 0 minutes. This excludes separately billable procedures. Critical care time (if documented) is secondary to the patient having high probability of clinically significant/life threatening deterioration in the patient's condition which required my urgent intervention. Impression: 1. Right lower quad abdominal pain 2. History of hysterectomy 3. Ovarian cyst Dispo: Discharge home This note was generated with [employer] dictation software. It may contain incorrect words, spelling, and punctuation that were not noted in review of the chart prior to signing. Lab Data Labs: Laboratory Results - last 24 hr 05/06/24 05/06/24 10:40 11:56 WBC 4.6 RBC 4.93 Hgb 14.1 Hct 42.5 MCV 86.2 MCH 28.6 MCHC 33.2 RDW Std Deviation 39.0 RDW Coeff of Mikel 12.5 Plt Count 156 MPV 10.9 Immature Gran % (Auto) 0.200 Neut % (Auto) 62.3 Lymph % (Auto) 23.8 [place] % (Auto) 7.6 Eos % (Auto) 5.2 H Baso % (Auto) 0.9 Absolute Neuts (auto) 2.9 Absolute Lymphs (auto) 1.10 Nucleated RBC % 0 Sodium 138 Potassium 3.6 Chloride 106 Carbon Dioxide 26.0 Anion Gap 6 BUN 8 Creatinine 0.81 Estim Creat Clear Calc 120.31 Est GFR (MDRD) Af Amer 103 Est GFR (MDRD) Non-Af 85 BUN/Creatinine Ratio 9.9 L Glucose 143 H Calcium 9.1 Total Bilirubin 0.40 AST 12 L ALT 32 Alkaline Phosphatase 68 Total Protein 7.0 Albumin 3.7 Globulin 3.3 Albumin/Globulin Ratio 1.1 Urine Color Yellow Urine Clarity Sl. Cloudy Urine pH 7.0 Ur Specific [place] 1.010 Urine Protein 15 H Urine Glucose (UA) Normal Urine Ketones Negative Urine Occult Blood Negative Urine Nitrite Negative Urine Bilirubin Negative Urine Urobilinogen Normal Ur Leukocyte Esterase 25 H Urine RBC 0 SEEN Urine WBC 0-5 SEEN Ur Squamous Epith Cells 0-5 SEEN Urine Bacteria 0 SEEN Urine Mucus 0 SEEN Radiography Diagnostic Testing: Clinical Impression(s) from Imaging Studies Abdomen/Pelvis CT 05/06/24 10:39 IMPRESSION: Increased size of the cyst in the right ovary. The patient is status post hysterectomy. Fatty infiltration of the liver and mild hepatomegaly. Borderline splenomegaly. Electronically Signed: Christiano Eduardo MD at 12:22 EST , Discharge Plan Triage Chief Complaint: Abd Pain ED Provider: Augie Adams Dx/Rx/DC Orders Instructions: Ovarian Cysts Prescriptions: New ondansetron 4 mg tablet,disintegrating 4 mg PO Q8H PRN PRN (Reason: Nausea) Qty: 10 0RF No Action ketoprofen 75 mg capsule 75 mg PO Q6H PRN (Reason: Migraine Symptoms) Qty: 100 1RF Rx Instructions: 1 cap PO at on set of headache max of 3 in 24 hours, max 20 per month pantoprazole 40 mg tablet,delayed release (DR/EC) 40 mg PO .breakfast 30 Days Qty: 30 2RF Rx Instructions: Take 1 hour before breakfast. hydroxyzine HCl 25 mg tablet 25 mg PO BID PRN (Reason: anxiety) Qty: 30 1RF atomoxetine 40 mg capsule 40 mg PO QAM Qty: 30 1RF sertraline 100 mg tablet 100 mg PO QDAY Qty: 30 1RF tizanidine 4 mg tablet 4 mg PO TID ondansetron 4 mg tablet,disintegrating 4 mg PO Q8H PRN PRN varenicline [Chantix Starting Month Box] 0.5 mg (11)- 1 mg (42) tablets,dose pack See Rx Instructions PO PER PKG DIR Qty: 53 0RF Rx Instructions: PO PER PKG DIR albuterol sulfate 90 mcg/actuation HFA aerosol inhaler 2 puff inhalation Q6H PRN (Reason: shortness of breath or wheezing) Qty: 8.5 0RF lidocaine [Lidoderm] 5 % adhesive patch,medicated 1 patch topical DAILY Qty: 15 0RF Rx Instructions: leave on most painful area for up to 12 hrs ursodiol 300 mg capsule 300 mg PO BID Qty: 180 1RF albuterol sulfate 2.5 mg /3 mL (0.083 %) solution for nebulization 2.5 mg inhalation Q6H PRN (Reason: shortness of breath or wheezing) Qty: 90 1RF levothyroxine 137 mcg tablet 137 mcg PO DAILY Qty: 90 1RF hydrocortisone acetate 25 mg suppository 25 mg MN BID Qty: 42 0RF (DME) compress.stocking,knee,reg,lrg Misc See Rx Instructions .MEDSUPPLY Qty: 2 1RF Rx Instructions: wear daily for venous insufficiency 20-30 mmHg hydrocortisone 1 % cream with perineal applicator 1 applic MN BID Qty: 28.4 0RF methocarbamol 750 mg tablet 750 mg PO QHS PRN (Reason: pain) Qty: 30 3RF Lupron Depot 3.75 mg syringe kit 3.75 mg IM QMONTH Qty: 1 12RF clopidogrel [Plavix] 75 mg tablet 75 mg PO DAILY Qty: 90 1RF prochlorperazine maleate 10 mg tablet 10 mg PO BID PRN (Reason: for migraine) Qty: 30 0RF amlodipine 5 mg tablet 5 mg PO DAILY Qty: 90 0RF Primary Care Provider: Jose Alejandro London Referrals: Jose Alejandro London MD [Primary Care Provider] - Activity Restrictions/Additional Instructions: Thank you for trusting us with your care today! Please take Tylenol (2 pills, 650 mg) every 6 hours as needed for pain and fever control. Please also take ketoprofen as prescribed. Please take Zofran as needed for nausea vomiting control. 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 Please follow with your primary care physician for further outpatient evaluation and management. Print Language: Eritrean Disposition Disposition: Home, Self Care
--- NOTE | 2024-05-06 10:39 | CT_ITS ---
STUDY: CT ABDOMEN AND PELVIS WITH CONTRAST REASON FOR EXAM: Female, 39 years old. Right lower abdominal pain. RADIATION DOSAGE (If Supplied By Facility): CTDIvol = ( 15.03 ) mGy, DLP = ( 1289.98 ) mGycm TECHNIQUE: Transaxial images were obtained from the dome of the diaphragm to the symphysis pubis without oral contrast. IV 100mL Isovue-370 was administered. Sagittal and coronal images were reconstructed. Individualized dose optimization techniques were used for this CT. COMPARISON: Comparison is made with prior study dated February 06, 2024. FINDINGS: Stable mild atelectasis at the lung bases and/or scarring. The visualized portions of the heart are within normal limits. There is decreased attenuation of the liver consistent with steatosis. Hepatomegaly. Normal gallbladder and extrahepatic biliary system. Borderline splenomegaly. Normal pancreas. Normal bilateral adrenal glands. Stable subcentimeters cyst in the posterior upper pole of the right kidney. Normal left kidney. There is a small hiatal hernia. Normal small intestine. Normal colon. The appendix is visualized and appears normal. Normal abdominal aorta. Normal inferior vena cava. Normal retroperitoneum. Normal urinary bladder. There is absence of the uterus consistent with a prior hysterectomy. There is a 4.2 cm x 4.2 cm x 3.7 cm cyst in the right ovary. This has increased slightly in size as compared to prior examination. There is a small umbilical hernia containing fat. Normal osseous structures. CT/Abdomen/Pelvis W IV Cont ONLY IMPRESSION: Increased size of the cyst in the right ovary. The patient is status post hysterectomy. Fatty infiltration of the liver and mild hepatomegaly. Borderline splenomegaly. Electronically Signed: Christiano Eduardo MD at 12:22 [facility] ,
[2024-05-06] MEDS: Ondansetron 4 MG/2 ML Vial IV (10:47)
[2024-05-06] MEDS: Acetaminophen 325 MG Tablet PO (10:48)
[2024-05-06 10:50] VITALS: BMI 39.6
[2024-05-06 10:51] LABS: Absolute Neutrophil Count 2.9 X10^3/uL (2.0-7.7); Basophil# 0.04 X10^3/uL; Basophil% 0.9 % (0-1); Eosinophil# 0.24 X10^3/uL; Eosinophils% 5.2 % (0-5); Hematocrit 42.5 % (37-47); Hemoglobin 14.1 g/dL (12.0-15.0); Lymphocyte % 23.8 % (19-41); Mean Corp Hgb Conc 33.2 g/dL (32-36); Mean Corpuscular Hgb 28.6 pg (27.0-32.0); Mean Corpuscular Volume 86.2 fL (81-99); Mean Platelet Vol. 10.9 fl (6.2-12.0); Monocyte# 0.35 X10^3/uL; Monocyte% 7.6 % (0-10); NRBC Flagged by Analyzer 0 % (0-5); Neutrophil # 2.88 X10^3/uL (2.7-7.7); Neutrophil % 62.3 % (47-70); Platelet Count 156 K/mm3 (150-450); RBC Distribution Width CV 12.5 % (11.6-14.6); Red Blood Count 4.93 M/mm3 (4.2-5.4); White Blood Count 4.6 K/mm3 (4.4-11.0)
[2024-05-06 11:12] LABS: ALB/GLOB Ratio 1.1 RATIO (0.9-2.4); AST(SGOT) 12 U/L (15-37); Alanine Aminotransfer ALT/SGPT 32 U/L (13-56); Albumin, Serum 3.7 g/dL (3.2-5.0); Alkaline Phosphatase 68 U/L (45-117); Anion Gap 6 (5-15); BUN 8 mg/dL (7-18); BUN/Creat Ratio 9.9 RATIO (10-20); Calcium,Total 9.1 mg/dL (8.5-10.1); Chloride 106 mmol/L (98-107); Creatinine, Serum 0.81 mg/dL (0.55-1.02); EST Glomerular Filtration Rate 85 mL/min (>60); Est Glom Filt Rate - Afr Amer 103 mL/min (>60); Estimated Creatinine Clearance 120.31 ml/min; Globulin 3.3 g/dL (2.2-4.2); Glucose 143 mg/dL (74-106); Potassium 3.6 mmol/L (3.5-5.1); Sodium Level 138 mmol/L (136-145)
[2024-05-06 12:04] VITALS: BP 138/72; PULSE 74; RESP 16; O2SAT 97
[2024-05-06 12:08] LABS: Bacteria 0 SEEN /hpf (None Seen); Mucous, Urine 0 SEEN /hpf (<or=2+); Red Blood Cells-Urine 0 SEEN /hpf (0-5)
[2024-05-06 12:14] LABS: Color, Urine Yellow (Yellow); Glucose, Dipstick Normal (Normal); Ketone-Dipstick Negative (Negative); Leukocyte Esterase-Dipstick 25 /ul (Negative); Nitrite-Dipstick Negative (Negative); Occult Blood-Urine Negative /ul (Negative); Protein-Dipstick 15 mg/dl (Negative); Urine Bilirubin Dipstick Negative (Negative); Urine Clarity Sl. Cloudy (Clear); Urine Urobilinogen Normal (Normal)
[2024-05-06 12:21] LABS: Squamous Epithelial Cells - UA 0-5 SEEN /hpf (5-10); White Blood Cells 0-5 SEEN /hpf (0-5)
[2024-05-06 13:15] VITALS: BP 126/70; PULSE 77; RESP 18; TEMP 530; TEMP 986; O2SAT 97
== END 2024-05-06 13:22 | disposition home or self-care (01) ==
PROVIDERS: Emergency Provider Emergency Medicine; PCP Internal Medicine; Visit Provider Emergency Medicine
DX: N83.201 Unspecified ovarian cyst, right side (principal); F17.210 Nicotine dependence, cigarettes, uncomplicated; Z86.718 Personal history of other venous thrombosis and embolism
CPT/HCPCS: 74177; 80053; 81001; 85025; 96374; 99283; Q9967; J2405

== ENCOUNTER → 2024-05-10 | Outpatient (CLI) | payer MEDICAID, SELFPAY ==
--- NOTE | 2024-05-10 15:30 | US_ITS ---
STUDY: ULTRASOUND OF THE FEMALE PELVIS - COMPLETE REASON FOR EXAM: Female, 39 years old. Ovarian Cyst, pelvic pain LMP: Status post hysterectomy. TECHNIQUE: Transabdominal and Transvaginal TECHNICAL QUALITY: Adequate. COMPARISON: 04/02/2024 FINDINGS: Status post hysterectomy The right ovary is visualized. The right ovary measures 6.2 x 5.4 x 4.8 cm. 4 cm oval anechoic mass with increased through transmission within the right ovary consistent with corpus luteum cyst. There is no visualized right adnexal mass or complex lesion. There is normal arterial and normal venous vascularity. Status post left offer ectomy.. There is no fluid in the cul-de-sac. The pre void volume of the bladder was ml. The post void volume of the bladder was ml. Polycystic ovary disease: No. US/Pelvic w/ Transvaginal IMPRESSION: 4 cm right ovarian corpus luteum cyst. Status post hysterectomy and left oophorectomy. Electronically Signed: Erik Odonnell MD at 11:31 EST ,
== END | disposition home or self-care (01) ==
LOC: US 15:30
PROVIDERS: PCP Internal Medicine; Referring Provider Obstetrics & Gynecology; Visit Provider Obstetrics & Gynecology
DX: N83.291 Other ovarian cyst, right side (principal); R10.2 Pelvic and perineal pain
CPT/HCPCS: 76830; 76856

== ENCOUNTER 2024-05-15 18:46 | Emergency (ER) | payer MEDICAID, SELFPAY ==
[2024-05-15 18:47] VITALS: BP 140/113; PULSE 94; RESP 17; TEMP 36.1; O2SAT 100; BMI 39.4
--- NOTE | 2024-05-15 19:10 | RAD_ITS ---
STUDY: X-RAY - ACUTE ABDOMINAL SERIES REASON FOR EXAM: Female, 39 years old. Pain TECHNIQUE: Single view of the chest. Supine, and erect view(s) of the abdomen were obtained. COMPARISON: None. FINDINGS: There is right lower lung scarring or atelectasis. Normal size heart. Normal mediastinum and tho. Normal visualized pulmonary arteries. Normal visualized aortic arch and descending thoracic aorta. There is a normal bowel gas pattern. There are multiple calcified phleboliths. There is intramedullary britt in the shaft of the right femur. RAD/Acute Abdomen Inc Chest IMPRESSION: No obstruction. Electronically Signed: Ashutosh Smith MD at 21:20 EST ,
--- NOTE | 2024-05-15 19:14 | ED.VIS.GI ---
HPI HPI - GI History of Present Illness Chief Complaint: Abd Pain Informant: patient Narrative Narrative: Increasing constipation with abdominal pain over last 2 days. No fever chills or sweats. Typically has 4-5 bowel moods a day. She does take occasional opioids for history of a right ovarian cyst. However states previously still would have her normal bowel movements. Hysterectomy and left oophorectomy in the past. No urinary symptoms. She took MiraLAX to help with still having 1 bowel movement. She states symptoms worsen after starting Plavix for which she was started after procedure for her right lower extremity DVT couple weeks ago by Dr. Enrique. She had angioplasty. She had GI bleed and vaginal bleed on Xarelto in the past. She is currently not taking other anticoagulants. She states there was initially blood in her stools 3 times however none over the last couple days. Reports different pain than her ovarian cyst. [facility] Medical History Herniated nucleus pulposus, C4-5 PCOS (polycystic ovarian syndrome) Deep vein blood clot of right lower extremity Chronic bronchitis Right foot sprain Right ankle sprain ADD (attention deficit disorder) Breast pain, right Contact with or exposure to other viral diseases Dermatitis PONV (postoperative nausea and vomiting) Leg cramps Anxiety and depression Left shoulder pain Depression Chronic pain Cancer Arthritis Fatty liver Easy bruising Restless legs Back pain Injury of head and neck Syncope Fibromyalgia History of pain when walking Hypertension History of echocardiogram History of stress test Cardiology follow-up encounter Localized swelling, mass and lump, neck Cervical lymphadenopathy Heartburn Chronic RUQ pain Right femoral fracture Tinnitus Vertigo Ectopic cardiac beats Palpitations RUQ abdominal pain Cervical radiculopathy Chronic back pain Left-sided low back pain with left-sided sciatica Hypocalcemia Tobacco abuse Bronchitis Morbid obesity Post herpetic neuralgia NICOLÁS (generalized anxiety disorder) ADHD (attention deficit hyperactivity disorder), combined type Numbness and tingling of both upper extremities Numbness of both lower extremities Migraine without aura and with status migrainosus, not intractable History of gestational diabetes Almaz's thyroiditis History of acne Thyroid disease Melanoma Home Medications ?Medication ?Instructions ?Recorded ?Last Taken ?Type ursodiol 300 mg capsule 300 mg PO BID #180 caps 08/22/23 Unknown Rx ketoprofen 75 mg capsule 75 mg PO Q6H PRN Migraine Symptoms 11/01/23 Unknown Rx #100 caps albuterol sulfate 2.5 mg/3 mL 2.5 mg (3 mL) inhalation Q6H PRN 01/16/24 Unknown Rx (0.083 %) solution for nebulization shortness of breath or wheezing #90 mL levothyroxine 137 mcg tablet 137 mcg PO DAILY synthroid #90 tabs 02/09/24 05/01/24 Rx pantoprazole 40 mg tablet,delayed 40 mg PO .breakfast 1 month #30 03/12/24 Unknown Rx release tabs hydrocortisone acetate 25 mg 25 mg [place] BID #42 ea 03/13/24 Unknown Rx rectal suppository compress.stocking,knee,reg,lrg #2 ea 03/21/24 Unknown Rx hydrocortisone 1 % topical cream 1 applic WI BID #28.4 grams 03/25/24 Unknown Rx with perineal applicator methocarbamol 750 mg tablet 750 mg PO QHS PRN pain #30 tabs 04/02/24 Unknown Rx leuprolide 3.75 mg intramuscular 3.75 mg IM QMONTH #1 ea 04/04/24 Unknown Rx syringe kit (Lupron Depot) atomoxetine 40 mg capsule 40 mg PO QAM #30 caps 04/16/24 Unknown Rx hydroxyzine HCl 25 mg tablet 25 mg PO BID PRN anxiety #30 tabs 04/16/24 Unknown Rx sertraline 100 mg tablet 100 mg PO QDAY #30 tabs 04/16/24 Unknown Rx lidocaine 5 % topical patch 1 patch topical DAILY #15 ea 04/23/24 Unknown Rx (Lidoderm) clopidogrel 75 mg tablet (Plavix) 75 mg PO DAILY #90 tabs 05/01/24 Unknown Rx amlodipine 5 mg tablet 5 mg PO DAILY for blood pressure 05/02/24 Unknown Rx #90 TABLETS prochlorperazine maleate 10 mg 10 mg PO BID PRN for migraine #30 05/02/24 Unknown Rx tablet TABLETS albuterol sulfate 90 mcg/actuation 2 puff inhalation Q6H PRN 05/03/24 Unknown Rx aerosol inhaler shortness of breath or wheezing #8.5 grams tizanidine 4 mg tablet 4 mg PO TID 05/03/24 Unknown History varenicline tartrate 0.5 mg (11)-1 See Rx Instructions PO PER PKG DIR 05/03/24 Unknown Rx mg (42) tablets in a dose pack #53 tabs (Chantix Starting Month Box) ondansetron 4 mg disintegrating 4 mg PO Q8H PRN PRN Nausea #10 tabs 05/06/24 Unknown Rx tablet sulfamethoxazole 800 1 tab PO Q12H #20 tabs 05/11/24 Unknown Rx mg-trimethoprim 160 mg tablet (Bactrim DS) dicyclomine 20 mg tablet 20 mg PO BID #60 tabs 05/14/24 Unknown Rx Allergy/AdvReac Type Severity Reaction Status Date / Time latex Allergy Itching Verified 05/15/24 18:47 naproxen Allergy Unknown Verified 05/15/24 18:47 Penicillins (PCN) Allergy Rash Verified 05/15/24 18:47 escitalopram (From Lexapro) AdvReac Intermediate Lightheaded Verified 05/15/24 18:47 sertraline (From Zoloft) AdvReac Intermediate Dizzy & Verified 05/15/24 18:47 Headache NSAIDS (Non-Steroidal AdvReac Mild Other Verified 05/15/24 18:47 Anti-Inflamma hydrocodone (From Vicodin) AdvReac Other Verified 05/15/24 18:47 ketorolac (From Toradol) AdvReac Other Verified 05/15/24 18:47 Family History Grandmother Diabetes Hypertension Hypercholesterolemia Thyroid disorder Mother Family history of skin cancer Other High cholesterol Surgical History History of carpal tunnel surgery of right wrist History of surgery on lower extremity Status post incision and drainage (~04/15/22) History of total vaginal hysterectomy (TVH) (~03/22/22) History of thyroidectomy History of surgery on arm Social History Smoking Status: Current every day smoker tobacco type: cigarettes Tobacco: How many years used: 13 Electronic Cigarette Use: not used second hand exposure: No alcohol intake: current alcohol intake frequency: holidays/special occasions only substance use type: does not use caffeine: Yes what type of physical activity do you participate in: none seatbelt use: always do you feel safe at home: Yes additional social history: [facility] Constitutional Constitutional ED: Denies chills, fever(s) or sweats ENT ENT ED: Denies sore throat Cardiovascular Cardiovascular: Denies chest pain, leg edema, palpitations or racing heartbeat Respiratory/Chest Respiratory/Chest: Denies cough, dyspnea or dyspnea on exertion Gastrointestinal Gastrointestinal: Reports abdominal pain and constipation; Denies diarrhea, nausea or vomiting Genitourinary Genitourinary ED: Denies dysuria, hematuria or urinary frequency Musculoskeletal Musculoskeletal: Denies back pain, extremity pain or neck pain Integumentary Denies rash or wounds Neurologic Neurologic: Denies headache(s), paresthesias or weakness EXAM Physical Exam Const Vital Signs: 05/15/24 18:47 05/15/24 21:00 05/15/24 22:08 Temperature 97 F L 98.1 F Temperature Source Temporal Pulse Rate 94 71 70 Respiratory Rate 17 18 18 Blood Pressure 140/113 H 102/65 111/72 Blood Pressure Mean 122 77 85 Pulse Ox 100 99 98 Oxygen Delivery Method Room Air Room Air Positive well nourished and well developed General Appearance ED: well developed and NAD HEENT Reports moist mucous membranes normocephalic and atraumatic Eyes General Eye ED: Yes normal appearance of both eyes Neck full ROM Chest Wall Chest: Negative for tenderness Resp normal respiratory effort and normal air movement Effort and Inspection: symmetric chest movement; Negative for respiratory distress Cardio regular rate, regular rhythm and no murmurs Peripheral Pulses: pulses 2+ throughout GI normal to inspection, nondistended, normoactive bowel sounds GI Narrative: Tenderness mid abdomen, negative Johnston's or McBurney's tenderness. Palpation: Negative for guarding or rebound tenderness present Extremity normal to inspection General Extremety ED: Negative for edema or tenderness General Extremity: Negative for edema Neuro oriented x3 and no sensory deficits noted Sensorium / Orientation: awake and alert Skin no rashes or lesions noted and no wounds MDM MDM MDM Narrative Medical decision making narrative: Interventions / MDM: Differential diagnosis: Abdominal pain, constipation Diagnosis considered but do not suspect: Pancreatitis however lipase normal. My EKG interpretation: N/A Imaging independently reviewed and interpreted by myself: 3 view abdominal series: No acute process on my review of your stool buildup on the right colon. No obstipation. External documents reviewed: N/A Test considered but not ordered:N/A ED course: Vital stable nontoxic. Decreased bowel movements with no abdominal pain. No fevers. Will check abdominal labs and abdominal series x-ray. Labs stable x-ray negative. Decreased stool output with more right-sided stools on my evaluation. Discussed increasing her MiraLAX if needed. She is also provided mag citrate bottle for home use. Outpatient follow-up. All questions were answered. Re-evaluation: stable Disposition discussed with patient/family/significant other: Patient Case discussed with consulting clinician: N/A This note was generated with [employer] dictation software. It may contain incorrect words, spelling, and punctuation that were not noted in checking the note before signing. Lab Data Attestation: I reviewed the patient's lab results. Labs: Laboratory Results - last 24 hr 05/15/24 19:24 WBC 3.2 L RBC 4.57 Hgb 12.7 Hct 39.5 MCV 86.4 MCH 27.8 MCHC 32.2 RDW Std Deviation 38.7 RDW Coeff of Mikel 12.2 Plt Count 154 MPV 10.8 Immature Gran % (Auto) 0.300 Neut % (Auto) 45.5 L Lymph % (Auto) 32.8 [place] % (Auto) 14.6 H Eos % (Auto) 6.2 H Baso % (Auto) 0.6 Absolute Neuts (auto) 1.5 L Absolute Lymphs (auto) 1.06 Nucleated RBC % 0 Sodium 138 Potassium 3.6 Chloride 106 Carbon Dioxide 27.0 Anion Gap 5 BUN 12 Creatinine 0.86 Estim Creat Clear Calc 112.97 Est GFR (MDRD) Af Amer 96 Est GFR (MDRD) Non-Af 79 BUN/Creatinine Ratio 14.0 Glucose 107 H Calcium 8.5 Total Bilirubin 0.20 AST 14 L ALT 27 Alkaline Phosphatase 68 Total Protein 6.8 Albumin 3.6 Globulin 3.2 Albumin/Globulin Ratio 1.1 Lipase 35 Radiography Diagnostic Testing: Clinical Impression(s) from Imaging Studies Acute Abdomen Series 05/15/24 19:10 IMPRESSION: No obstruction. Electronically Signed: Ashutosh Smith MD at 21:20 EST , Discharge Plan Triage Chief Complaint: Abd Pain ED Provider: Drake Guzman Dx/Rx/DC Orders Clinical Impression: Abdominal pain, Constipation Instructions: Abdominal Pain, ED Constipation (Adult) Prescriptions: No Action ketoprofen 75 mg capsule 75 mg PO Q6H PRN (Reason: Migraine Symptoms) Qty: 100 1RF Rx Instructions: 1 cap PO at on set of headache max of 3 in 24 hours, max 20 per month pantoprazole 40 mg tablet,delayed release (DR/EC) 40 mg PO .breakfast 30 Days Qty: 30 2RF Rx Instructions: Take 1 hour before breakfast. hydroxyzine HCl 25 mg tablet 25 mg PO BID PRN (Reason: anxiety) Qty: 30 1RF atomoxetine 40 mg capsule 40 mg PO QAM Qty: 30 1RF sertraline 100 mg tablet 100 mg PO QDAY Qty: 30 1RF tizanidine 4 mg tablet 4 mg PO TID Patient Comments: reports not taking it, but has prescription at home (05/14/2024) varenicline tartrate [Chantix Starting Month Box] 0.5 mg (11)- 1 mg (42) tablets,dose pack See Rx Instructions PO PER PKG DIR Qty: 53 0RF Rx Instructions: PO PER PKG DIR albuterol sulfate 90 mcg/actuation HFA aerosol inhaler 2 puff inhalation Q6H PRN (Reason: shortness of breath or wheezing) Qty: 8.5 0RF lidocaine [Lidoderm] 5 % adhesive patch,medicated 1 patch topical DAILY Qty: 15 0RF Rx Instructions: leave on most painful area for up to 12 hrs ondansetron 4 mg tablet,disintegrating 4 mg PO Q8H PRN PRN (Reason: Nausea) Qty: 10 0RF ursodiol 300 mg capsule 300 mg PO BID Qty: 180 1RF albuterol sulfate 2.5 mg /3 mL (0.083 %) solution for nebulization 2.5 mg inhalation Q6H PRN (Reason: shortness of breath or wheezing) Qty: 90 1RF levothyroxine 137 mcg tablet 137 mcg PO DAILY Qty: 90 1RF hydrocortisone acetate 25 mg suppository 25 mg WI BID Qty: 42 0RF (DME) compress.stocking,knee,reg,lrg Misc See Rx Instructions .MEDSUPPLY Qty: 2 1RF Rx Instructions: wear daily for venous insufficiency 20-30 mmHg hydrocortisone 1 % cream with perineal applicator 1 applic WI BID Qty: 28.4 0RF methocarbamol 750 mg tablet 750 mg PO QHS PRN (Reason: pain) Qty: 30 3RF Lupron Depot 3.75 mg syringe kit 3.75 mg IM QMONTH Qty: 1 12RF clopidogrel [Plavix] 75 mg tablet 75 mg PO DAILY Qty: 90 1RF prochlorperazine maleate 10 mg tablet 10 mg PO BID PRN (Reason: for migraine) Qty: 30 0RF amlodipine 5 mg tablet 5 mg PO DAILY Qty: 90 0RF sulfamethoxazole-trimethoprim [Bactrim DS] 800-160 mg tablet 1 tab PO Q12H Qty: 20 0RF dicyclomine 20 mg tablet 20 mg PO BID Qty: 60 0RF Primary Care Provider: Jose Alejandor London Referrals: Jose Alejandro London MD [Primary Care Provider] - 1 Week Activity Restrictions/Additional Instructions: Labs stable. Abdominal x-rays negative. Use magnesium citrate. Take half of the bottle at home may repeat in 6 hours. Also may increase your MiraLAX 1 scoop in 8 ounces hour every hour until bowel movement. Follow-up with your doctor. Print Language: [place] Disposition Disposition: Home, Self Care Discharge Date/Time: 05/15/24 22:15
[2024-05-15 19:51] LABS: Absolute Lymphocyte Count 1.06 X10^3/uL (0.83-4.51); Absolute Neutrophil Count 1.5 X10^3/uL (2.0-7.7); Basophil# 0.02 X10^3/uL; Basophil% 0.6 % (0-1); Eosinophils% 6.2 % (0-5); Hematocrit 39.5 % (37-47); Hemoglobin 12.7 g/dL (12.0-15.0); Lymphocyte # 1.06 X10^3/ul (0.83-4.51); Lymphocyte % 32.8 % (19-41); Mean Corp Hgb Conc 32.2 g/dL (32-36); Mean Corpuscular Hgb 27.8 pg (27.0-32.0); Mean Corpuscular Volume 86.4 fL (81-99); Mean Platelet Vol. 10.8 fl (6.2-12.0); Monocyte# 0.47 X10^3/uL; Monocyte% 14.6 % (0-10); NRBC Flagged by Analyzer 0 % (0-5); Neutrophil # 1.47 X10^3/uL (2.7-7.7); Neutrophil % 45.5 % (47-70); Platelet Count 154 K/mm3 (150-450); RBC Distribution Width CV 12.2 % (11.6-14.6); RBC Distribution Width SD 38.7 fl (35.1-43.9); Red Blood Count 4.57 M/mm3 (4.2-5.4); White Blood Count 3.2 K/mm3 (4.4-11.0)
[2024-05-15 20:01] LABS: ALB/GLOB Ratio 1.1 RATIO (0.9-2.4); AST(SGOT) 14 U/L (15-37); Alanine Aminotransfer ALT/SGPT 27 U/L (13-56); Albumin, Serum 3.6 g/dL (3.2-5.0); Alkaline Phosphatase 68 U/L (45-117); Anion Gap 5 (5-15); BUN 12 mg/dL (7-18); Calcium,Total 8.5 mg/dL (8.5-10.1); Chloride 106 mmol/L (98-107); Creatinine, Serum 0.86 mg/dL (0.55-1.02); EST Glomerular Filtration Rate 79 mL/min (>60); Est Glom Filt Rate - Afr Amer 96 mL/min (>60); Estimated Creatinine Clearance 112.97 ml/min; Globulin 3.2 g/dL (2.2-4.2); Glucose 107 mg/dL (74-106); Lipase 35 U/L (13-75); Potassium 3.6 mmol/L (3.5-5.1); Protein, Total 6.8 g/dL (6.4-8.2); Sodium Level 138 mmol/L (136-145)
[2024-05-15 21:00] VITALS: BP 102/65; PULSE 71; RESP 18; O2SAT 99
[2024-05-15 22:08] VITALS: BP 111/72; PULSE 70; RESP 18; TEMP 36.7; O2SAT 98
[2024-05-15] MEDS: Magnesium Citrate 300 ML PO (22:12)
== END 2024-05-15 22:15 | disposition home or self-care (01) ==
PROVIDERS: Emergency Provider Emergency Medicine; PCP Internal Medicine; Visit Provider Emergency Medicine
DX: R10.9 Unspecified abdominal pain (principal); E66.01 Morbid (severe) obesity due to excess calories; K59.00 Constipation, unspecified; I10 Essential (primary) hypertension; R12 Heartburn; E28.2 Polycystic ovarian syndrome; F90.2 Attention-deficit hyperactivity disorder, combined type; F41.1 Generalized anxiety disorder; F32.A Depression, unspecified; E06.3 Autoimmune thyroiditis; M79.7 Fibromyalgia; G25.81 Restless legs syndrome; F17.210 Nicotine dependence, cigarettes, uncomplicated; Z88.0 Allergy status to penicillin; Z88.6 Allergy status to analgesic agent; Z79.02 Long term (current) use of antithrombotics/antiplatelets; Z86.718 Personal history of other venous thrombosis and embolism; Z79.890 Hormone replacement therapy; Z79.899 Other long term (current) drug therapy; Z85.820 Personal history of malignant melanoma of skin; Z90.710 Acquired absence of both cervix and uterus
CPT/HCPCS: 74022; 80053; 83690; 85025; 99283

== ENCOUNTER 2024-05-20 21:52 | Emergency (ER) | payer MEDICAID, SELFPAY ==
[2024-05-20 21:53] VITALS: BP 137/10; PULSE 89; RESP 16; TEMP 36.8; O2SAT 99; BMI 39.4
--- NOTE | 2024-05-20 22:37 | US_ITS ---
EXAM: US DUPLEX RIGHT LOWER EXTREMITY VEINS CLINICAL INDICATION: RT LEG PAIN TECHNIQUE: Real-time duplex ultrasound scan of the right lower extremity veins integrating B-mode two-dimensional vascular structure, Doppler spectral analysis, color flow Doppler imaging and compression. COMPARISON: No relevant prior studies available. FINDINGS: DEEP VEINS: Unremarkable. No DVT in the visualized common femoral, femoral, proximal deep femoral or popliteal veins. The veins demonstrate normal color flow, are normally compressible, with normal phasic flow and/or augmentation response. SUPERFICIAL VEINS: There is a small amount of thrombus in the greater saphenous vein. SOFT TISSUES: No acute findings. No popliteal cyst. US/Venous Duplex Imag/Limited/Uni IMPRESSION: 1. No sonographic evidence of deep venous thrombosis. 2. Minimal thrombus in the greater saphenous vein which may represent thrombophlebitis. Electronically Signed: Samson Buchanan MD at 0:07 EST ,
--- NOTE | 2024-05-20 23:53 | EX.ED.DYSGE1 ---
HPI History of Present Illness Chief Complaint: Lower Extremity Injury Informant: patient Narrative Narrative: Patient is a 39-year-old female with previous history of DVT. She is currently on aspirin and Plavix. She states that she underwent a right leg angioplasty to the weeks ago. She states that she has been doing well but today noticed that her right calf was swollen and painful. She states that she is concerned this could be related to a DVT as she states there has been no recent trauma. She denies any chest pain or shortness of breath. However because she has had previous DVT she has concern for this and therefore comes in for evaluation [facility] Medical History Herniated nucleus pulposus, C4-5 PCOS (polycystic ovarian syndrome) Deep vein blood clot of right lower extremity Chronic bronchitis Right foot sprain Right ankle sprain ADD (attention deficit disorder) Breast pain, right Contact with or exposure to other viral diseases Dermatitis PONV (postoperative nausea and vomiting) Leg cramps Anxiety and depression Left shoulder pain Depression Chronic pain Cancer Arthritis Fatty liver Easy bruising Restless legs Back pain Injury of head and neck Syncope Fibromyalgia History of pain when walking Hypertension History of echocardiogram History of stress test Cardiology follow-up encounter Localized swelling, mass and lump, neck Cervical lymphadenopathy Heartburn Chronic RUQ pain Right femoral fracture Tinnitus Vertigo Ectopic cardiac beats Palpitations RUQ abdominal pain Cervical radiculopathy Chronic back pain Left-sided low back pain with left-sided sciatica Hypocalcemia Tobacco abuse Bronchitis Morbid obesity Post herpetic neuralgia NICOLÁS (generalized anxiety disorder) ADHD (attention deficit hyperactivity disorder), combined type Numbness and tingling of both upper extremities Numbness of both lower extremities Migraine without aura and with status migrainosus, not intractable History of gestational diabetes Almaz's thyroiditis History of acne Thyroid disease Melanoma Home Medications ?Medication ?Instructions ?Recorded ?Last Taken ?Type ursodiol 300 mg capsule 300 mg PO BID #180 caps 08/22/23 Unknown Rx ketoprofen 75 mg capsule 75 mg PO Q6H PRN Migraine Symptoms 11/01/23 Unknown Rx #100 caps albuterol sulfate 2.5 mg/3 mL 2.5 mg (3 mL) inhalation Q6H PRN 01/16/24 Unknown Rx (0.083 %) solution for nebulization shortness of breath or wheezing #90 mL levothyroxine 137 mcg tablet 137 mcg PO DAILY synthroid #90 tabs 02/09/24 05/01/24 Rx pantoprazole 40 mg tablet,delayed 40 mg PO .breakfast 1 month #30 03/12/24 Unknown Rx release tabs hydrocortisone acetate 25 mg 25 mg NE BID #42 ea 03/13/24 Unknown Rx rectal suppository compress.stocking,knee,reg,lrg #2 ea 03/21/24 Unknown Rx hydrocortisone 1 % topical cream 1 applic NE BID #28.4 grams 03/25/24 Unknown Rx with perineal applicator methocarbamol 750 mg tablet 750 mg PO QHS PRN pain #30 tabs 04/02/24 Unknown Rx leuprolide 3.75 mg intramuscular 3.75 mg IM QMONTH #1 ea 04/04/24 Unknown Rx syringe kit (Lupron Depot) atomoxetine 40 mg capsule 40 mg PO QAM #30 caps 04/16/24 Unknown Rx hydroxyzine HCl 25 mg tablet 25 mg PO BID PRN anxiety #30 tabs 04/16/24 Unknown Rx sertraline 100 mg tablet 100 mg PO QDAY #30 tabs 04/16/24 Unknown Rx lidocaine 5 % topical patch 1 patch topical DAILY #15 ea 04/23/24 Unknown Rx (Lidoderm) clopidogrel 75 mg tablet (Plavix) 75 mg PO DAILY #90 tabs 05/01/24 Unknown Rx amlodipine 5 mg tablet 5 mg PO DAILY for blood pressure 05/02/24 Unknown Rx #90 TABLETS prochlorperazine maleate 10 mg 10 mg PO BID PRN for migraine #30 05/02/24 Unknown Rx tablet TABLETS albuterol sulfate 90 mcg/actuation 2 puff inhalation Q6H PRN 05/03/24 Unknown Rx aerosol inhaler shortness of breath or wheezing #8.5 grams tizanidine 4 mg tablet 4 mg PO TID 05/03/24 Unknown History varenicline tartrate 0.5 mg (11)-1 See Rx Instructions PO PER PKG DIR 05/03/24 Unknown Rx mg (42) tablets in a dose pack #53 tabs (Chantix Starting Month Box) ondansetron 4 mg disintegrating 4 mg PO Q8H PRN PRN Nausea #10 tabs 05/06/24 Unknown Rx tablet sulfamethoxazole 800 1 tab PO Q12H #20 tabs 05/11/24 Unknown Rx mg-trimethoprim 160 mg tablet (Bactrim DS) dicyclomine 20 mg tablet 20 mg PO BID #60 tabs 05/14/24 Unknown Rx rivaroxaban 15 mg (42)-20 mg (9) See Rx Instructions PO .COMPLEX 05/20/24 Unknown Rx tablets in a starter pack (Xarelto #51 tabs DVT-PE Treatment 30-Day Starter) Allergy/AdvReac Type Severity Reaction Status Date / Time latex Allergy Itching Verified 05/20/24 21:54 naproxen Allergy Unknown Verified 05/20/24 21:54 Penicillins (PCN) Allergy Rash Verified 05/20/24 21:54 escitalopram (From Lexapro) AdvReac Intermediate Lightheaded Verified 05/20/24 21:54 sertraline (From Zoloft) AdvReac Intermediate Dizzy & Verified 05/20/24 21:54 Headache NSAIDS (Non-Steroidal AdvReac Mild Other Verified 05/20/24 21:54 Anti-Inflamma hydrocodone (From Vicodin) AdvReac Other Verified 05/20/24 21:54 ketorolac (From Toradol) AdvReac Other Verified 05/20/24 21:54 Family History Grandmother Diabetes Hypertension Hypercholesterolemia Thyroid disorder Mother Family history of skin cancer Other High cholesterol Surgical History History of carpal tunnel surgery of right wrist History of surgery on lower extremity Status post incision and drainage (~04/15/22) History of total vaginal hysterectomy (TVH) (~03/22/22) History of thyroidectomy History of surgery on arm Social History Smoking Status: Current every day smoker tobacco type: cigarettes Tobacco: How many years used: 13 Electronic Cigarette Use: not used second hand exposure: No alcohol intake: current alcohol intake frequency: holidays/special occasions only substance use type: does not use caffeine: Yes what type of physical activity do you participate in: none seatbelt use: always do you feel safe at home: Yes additional social history: emmy [facility] ED Constitutional Constitutional ED: Denies chills or fever(s) ENT ENT ED: Denies sore throat Cardiovascular Cardiovascular: Denies chest pain, palpitations or racing heartbeat Respiratory/Chest Respiratory/Chest: Denies cough or dyspnea Gastrointestinal Gastrointestinal: Denies abdominal pain, diarrhea, nausea or vomiting Genitourinary Genitourinary ED: Denies dysuria Musculoskeletal Musculoskeletal: Reports other Details: Positive right leg pain and swelling Integumentary Denies rash Neurologic Neurologic: Denies headache(s) Hematologic/Lymphatic Hematologic/Lymphatic: Reports easy bleeding and easy bruising EXAM Physical Exam Const Vital Signs: 05/20/24 21:53 Temperature 98.2 F Temperature Source Oral Pulse Rate 89 Respiratory Rate 16 Blood Pressure 137/10 H Blood Pressure Mean 52 Pulse Ox 99 Oxygen Delivery Method Room Air Positive well nourished and well developed General Appearance ED: well developed; Negative for pallor HEENT HEENT Narrative: Normocephalic atraumatic Eyes PERRL and EOMs intact bilaterally General Eye ED: Negative for scleral icterus Neck supple Resp normal respiratory effort and clear to auscultation bilaterally Cardio regular rate and regular rhythm Extremity Extremity Narrative: There is asymmetric swelling of the right lower leg compared to left. Positive Homans' sign on right. However compartments are soft and compressible going against compartment syndrome. No obvious asymmetric erythema or warmth. No abscess or cellulitis. No findings to suggest long bone injury or dislocation Neuro oriented x3, CN's II-XII intact bilaterally and no sensory deficits noted Sensorium / Orientation: alert Motor Exam: strength 5/5 throughout Psych mental status grossly normal Skin no rashes or lesions noted and no wounds General Skin Exam: Negative for jaundice or pallor MDM MDM MDM Narrative Medical decision making narrative: Patient arrived to the ER with stable vitals but reported pain in the right calf without trauma. As she does have history of previous DVT there is concern for this once again. I have low concern for bony injury as patient's had no recent trauma and I have low concern for cellulitis or abscess as there is no overlying soft tissue changes. Venous duplex was obtained which does show a clot in the greater saphenous vein. However it is only 3 to 4 cm away from the saphenofemoral junction which would then classified as a deep vein thrombosis. Secondary to this close junction I did discuss the case with her vascular surgeon Dr. Enrique. He recommends patient stop her Plavix and be placed back on her anticoagulation with Xarelto. This plan of care was discussed with the patient she is equal to it and as she does not have findings concerning for DVT/PE or compartment syndrome or infection she is otherwise safe for discharge. History & Record Review Discussion w/independent historian: Patient Discharge Plan Triage Chief Complaint: Lower Extremity Injury ED Provider: León Aiken Dx/Rx/DC Orders Clinical Impression: DVT (deep venous thrombosis) Instructions: DVT Dc Prescriptions: New Xarelto DVT-PE Treat 30d Start 15 mg (42)- 20 mg (9) tablets,dose pack See Rx Instructions .ROUTE .COMPLEX Qty: 51 0RF Rx Instructions: take one-15 mg tablet twice daily for 21 days, then one-20 mg tablet once daily; must take with meal/food No Action ketoprofen 75 mg capsule 75 mg PO Q6H PRN (Reason: Migraine Symptoms) Qty: 100 1RF Rx Instructions: 1 cap PO at on set of headache max of 3 in 24 hours, max 20 per month pantoprazole 40 mg tablet,delayed release (DR/EC) 40 mg PO .breakfast 30 Days Qty: 30 2RF Rx Instructions: Take 1 hour before breakfast. hydroxyzine HCl 25 mg tablet 25 mg PO BID PRN (Reason: anxiety) Qty: 30 1RF atomoxetine 40 mg capsule 40 mg PO QAM Qty: 30 1RF sertraline 100 mg tablet 100 mg PO QDAY Qty: 30 1RF tizanidine 4 mg tablet 4 mg PO TID Patient Comments: reports not taking it, but has prescription at home (05/14/2024) varenicline tartrate [Chantix Starting Month Box] 0.5 mg (11)- 1 mg (42) tablets,dose pack See Rx Instructions PO PER PKG DIR Qty: 53 0RF Rx Instructions: PO PER PKG DIR albuterol sulfate 90 mcg/actuation HFA aerosol inhaler 2 puff inhalation Q6H PRN (Reason: shortness of breath or wheezing) Qty: 8.5 0RF lidocaine [Lidoderm] 5 % adhesive patch,medicated 1 patch topical DAILY Qty: 15 0RF Rx Instructions: leave on most painful area for up to 12 hrs ondansetron 4 mg tablet,disintegrating 4 mg PO Q8H PRN PRN (Reason: Nausea) Qty: 10 0RF ursodiol 300 mg capsule 300 mg PO BID Qty: 180 1RF albuterol sulfate 2.5 mg /3 mL (0.083 %) solution for nebulization 2.5 mg inhalation Q6H PRN (Reason: shortness of breath or wheezing) Qty: 90 1RF levothyroxine 137 mcg tablet 137 mcg PO DAILY Qty: 90 1RF hydrocortisone acetate 25 mg suppository 25 mg NE BID Qty: 42 0RF (DME) compress.stocking,knee,reg,lrg Misc See Rx Instructions .MEDSUPPLY Qty: 2 1RF Rx Instructions: wear daily for venous insufficiency 20-30 mmHg hydrocortisone 1 % cream with perineal applicator 1 applic NE BID Qty: 28.4 0RF methocarbamol 750 mg tablet 750 mg PO QHS PRN (Reason: pain) Qty: 30 3RF Lupron Depot 3.75 mg syringe kit 3.75 mg IM QMONTH Qty: 1 12RF clopidogrel [Plavix] 75 mg tablet 75 mg PO DAILY Qty: 90 1RF prochlorperazine maleate 10 mg tablet 10 mg PO BID PRN (Reason: for migraine) Qty: 30 0RF amlodipine 5 mg tablet 5 mg PO DAILY Qty: 90 0RF sulfamethoxazole-trimethoprim [Bactrim DS] 800-160 mg tablet 1 tab PO Q12H Qty: 20 0RF dicyclomine 20 mg tablet 20 mg PO BID Qty: 60 0RF Stand Alone Forms: ED Work / School Excuse Primary Care Provider: Jose Alejandro London Referrals: Jose Alejandro London MD [Primary Care Provider] - Activity Restrictions/Additional Instructions: Please stop your Plavix but continue your aspirin and add the Xarelto secondary to the blood clot found in your right lower leg today. Follow-up with your vascular surgeon for repeat evaluation and return to the ER should you have any further concerns Print Language: French Disposition Disposition: Home, Self Care
[2024-05-21] MEDS: Rivaroxaban 15 MG Tablet PO (00:16)
[2024-05-21 00:20] VITALS: BP 129/59; PULSE 79; RESP 16; TEMP 36.6; O2SAT 99
== END 2024-05-21 00:23 | disposition home or self-care (01) ==
PROVIDERS: Emergency Provider Emergency Medicine; PCP Internal Medicine; Visit Provider Emergency Medicine
DX: I82.401 Acute embolism and thrombosis of unspecified deep veins of right lower extremity (principal); J42 Unspecified chronic bronchitis; M54.9 Dorsalgia, unspecified; G89.29 Other chronic pain; I10 Essential (primary) hypertension; Z79.82 Long term (current) use of aspirin; Z79.02 Long term (current) use of antithrombotics/antiplatelets; Z79.890 Hormone replacement therapy; Z79.899 Other long term (current) drug therapy; Z98.62 Peripheral vascular angioplasty status; F17.210 Nicotine dependence, cigarettes, uncomplicated
CPT/HCPCS: 93971; 99282

== ENCOUNTER → 2024-05-27 | Outpatient (CLI) | payer MEDICAID, SELFPAY ==
--- NOTE | 2024-05-27 13:53 | VDLE_ITS ---
Reason For Study: RLE Pain RIGHT LEFT GSV is normal. CFV is compressible, spontaneous, phasic, Bright intraluminal echoes noted in CFV and competent, and demonstrates normal prox FV consistent with CHRONIC DVT. SFJ is augmentation. PARTIALLY COMPRESSIBLE with intraluminal echoes noted. CFV is compressible, phasic, and INCOMPETENT for greater than 1.0 second. FV is compressible, phasic, and INCOMPETENT for greater than 1.0 second. POP V is compressible, phasic, and INCOMPETENT for greater than 1.0 second. T/P Trunk is compressible. PTV is compressible. RT PerV is compressible. Procedure This is a venous duplex using B-mode, color flow and spectral Doppler. Exam performed in department. The exam was diagnostic. A preliminary report was called and/or faxed to Beny RYAN at [facility]. VL/Venous Duplex US, Unilateral Interpretation Summary Resolving thrombus right saphenofemoral junction Deep veins of the right lower extremity are patent and compressible segmentally . There is no evidence of right lower extremity deep vein thrombosis. Reflux noted in the right femoral vein, popliteal vein. Unchanged appearance of common femoral vein. Ordering Physician: Britany Nuñez Referring Physician: Jose Alejandro London Performed By: Simone Verdugo RVT
== END | disposition home or self-care (01) ==
LOC: CVS 13:53
PROVIDERS: PCP Internal Medicine; Referring Provider Physician Assistant; Visit Provider Physician Assistant
DX: M79.604 Pain in right leg (principal); I82.811 Embolism and thrombosis of superficial veins of right lower extremity
CPT/HCPCS: 93971

== ENCOUNTER → 2024-06-04 | Outpatient (CLI) | payer MEDICAID, SELFPAY ==
[2024-06-04 11:15] VITALS: PULSE 100; PULSE 103; PULSE 104; PULSE 106; PULSE 80; PULSE 87; O2SAT 97; O2SAT 98; O2SAT 99
--- NOTE | 2024-06-04 11:46 | CPS ---
Prior to start of test pt stated she had a blood clot in her leg and also wanted to let us know she had been sick and was still recovering from her illness. Pt did have a moist cough but denied any S.O.B prior to start of walk, during walk or at end of walk.
--- NOTE | 2024-06-10 10:36 | PCM.PSN.6M ---
PSN 6 Minute Walk Test 6 Minute Walk Test 6 Minute Walk Test: 6 Minute Walk Test PSN:6-Minute Walk Test Start: 06/04/24 11:40 Freq: Status: Active Protocol: [id number] Document 06/04/24 11:15 AE (Rec: 06/04/24 11:[address] [facility] [id number]) 6 Minute Walk Test Date Performed 06/04/24 Time Performed 11:15 Height 5 ft 6 in Weight: 244 lb Weight in Pounds [address]: Axel Assistive device used: None Pre-test Oxygen Delivery Method Room Air Pulse Ox (%) 99 Pulse Rate (60-100 beats/min) 80 Dyspnea Harshad Scale (0-10) 0 Exertion Harshad Scale (6-20) 6 1st minute Oxygen Delivery Method Room Air Pulse Ox (%) 98 Pulse Rate (60-100 beats/min) 106 H 2nd minute Oxygen Delivery Method Room Air Pulse Ox (%) 98 Pulse Rate (60-100 beats/min) 104 H 3rd minute Oxygen Delivery Method Room Air Pulse Ox (%) 98 Pulse Rate (60-100 beats/min) 100 4th minute Oxygen Delivery Method Room Air Pulse Ox (%) 97 Pulse Rate (60-100 beats/min) 100 5th minute Oxygen Delivery Method Room Air Pulse Ox (%) 98 Pulse Rate (60-100 beats/min) 104 H 6th minute Oxygen Delivery Method Room Air Pulse Ox (%) 98 Pulse Rate (60-100 beats/min) 103 H Dyspnea Harshad Scale (0-10) 0 Exertion Harshad Scale (6-20) 10 Post-test Oxygen Delivery Method Room Air Pulse Ox (%) 98 Pulse Rate (60-100 beats/min) 87 Full Laps Walked 15 Partial Lap, Number of Tiles Walked 18 Total Distance Walked (ft) 903 Interpretation Interpretation: The patient ambulated 903 feet over the course of 6 minutes beginning on room air without assistive devices. Pretesting oxygen saturation was noted to be 99% on room air. With ambulation, the rogelio oxygen saturation was 97%. There was no significant exertional oxygen desaturation noted. Recommendations Recommendations: There is no indication for the use of supplemental oxygen at this time.
== END | disposition home or self-care (01) ==
LOC: PSN 11:07
PROVIDERS: PCP Internal Medicine; Referring Provider Nurse Practitioner Family; Visit Provider Nurse Practitioner Family
DX: R06.02 Shortness of breath (principal)

== ENCOUNTER 2024-06-17 18:16 | Emergency (ER) | payer MEDICAID, SELFPAY ==
[2024-06-17 18:17] VITALS: BP 136/119; PULSE 95; RESP 16; TEMP 36.7; O2SAT 100; BMI 39.4
[2024-06-17 19:25] LABS: Mucous, Urine 0 SEEN /hpf (<or=2+)
[2024-06-17 19:31] LABS: Color, Urine Yellow (Yellow); Glucose, Dipstick Normal (Normal); Ketone-Dipstick Negative (Negative); Leukocyte Esterase-Dipstick 25 /ul (Negative); Nitrite-Dipstick Negative (Negative); Occult Blood-Urine Negative /ul (Negative); Protein-Dipstick 15 mg/dl (Negative); Specific Gravity, Urine 1.015 (1.002-1.030); Urine Bilirubin Dipstick Negative (Negative); Urine Clarity Sl. Cloudy (Clear); Urine Urobilinogen 1 mg/dl (Normal); Urine pH 6.5 (5.0 - 8.0)
[2024-06-17 20:04] LABS: Bacteria 1+ /hpf (None Seen); Red Blood Cells-Urine 0-5 SEEN /hpf (0-5); Squamous Epithelial Cells - UA 0-5 SEEN /hpf (5-10); White Blood Cells 5-10 SEEN /hpf (0-5)
[2024-06-17 20:13] LABS: Absolute Neutrophil Count 3.7 X10^3/uL (2.0-7.7); Basophil# 0.02 X10^3/uL; Basophil% 0.3 % (0-1); Eosinophil# 0.25 X10^3/uL; Eosinophils% 3.9 % (0-5); Hematocrit 44.4 % (37-47); Hemoglobin 15.1 g/dL (12.0-15.0); Lymphocyte % 31.3 % (19-41); Mean Corpuscular Hgb 28.7 pg (27.0-32.0); Mean Corpuscular Volume 84.3 fL (81-99); Mean Platelet Vol. 11.1 fl (6.2-12.0); Monocyte# 0.46 X10^3/uL; Monocyte% 7.2 % (0-10); NRBC Flagged by Analyzer 0 % (0-5); Neutrophil # 3.66 X10^3/uL (2.7-7.7); Neutrophil % 57.1 % (47-70); Platelet Count 228 K/mm3 (150-450); RBC Distribution Width CV 12.7 % (11.6-14.6); RBC Distribution Width SD 38.8 fl (35.1-43.9); Red Blood Count 5.27 M/mm3 (4.2-5.4); White Blood Count 6.4 K/mm3 (4.4-11.0)
[2024-06-17 20:17] LABS: ALB/GLOB Ratio 1.1 RATIO (0.9-2.4); AST(SGOT) 19 U/L (15-37); Alanine Aminotransfer ALT/SGPT 33 U/L (13-56); Albumin, Serum 4.2 g/dL (3.2-5.0); Alkaline Phosphatase 70 U/L (45-117); Anion Gap 6 (5-15); BUN 9 mg/dL (7-18); BUN/Creat Ratio 11.3 RATIO (10-20); Calcium,Total 9.6 mg/dL (8.5-10.1); Chloride 106 mmol/L (98-107); Creatinine, Serum 0.79 mg/dL (0.55-1.02); EST Glomerular Filtration Rate 87 mL/min (>60); Est Glom Filt Rate - Afr Amer 105 mL/min (>60); Estimated Creatinine Clearance 122.91 ml/min; Globulin 3.8 g/dL (2.2-4.2); Glucose 103 mg/dL (74-106); Potassium 3.7 mmol/L (3.5-5.1); Sodium Level 138 mmol/L (136-145)
[2024-06-17 20:19] LABS: Internal QC Validated? YES +Cl - CLEAR BKGD; Pregnancy, Serum, hCG Quali. NEGATIVE Negative
[2024-06-17 20:39] VITALS: BP 128/78; PULSE 68; O2SAT 100
--- NOTE | 2024-06-17 20:46 | EX.ED.DYSGE1 ---
HPI History of Present Illness Chief Complaint: Abd Pain [facility] Medical History (Updated 06/17/24 @ 22:[address] Augie Adams, DO) DVT (deep venous thrombosis) Herniated nucleus pulposus, C4-5 PCOS (polycystic ovarian syndrome) Deep vein blood clot of right lower extremity Chronic bronchitis Right foot sprain Right ankle sprain ADD (attention deficit disorder) Breast pain, right Contact with or exposure to other viral diseases Dermatitis PONV (postoperative nausea and vomiting) Leg cramps Anxiety and depression Left shoulder pain Depression Chronic pain Cancer Arthritis Fatty liver Easy bruising Restless legs Back pain Injury of head and neck Syncope Fibromyalgia History of pain when walking Hypertension History of echocardiogram History of stress test Cardiology follow-up encounter Localized swelling, mass and lump, neck Cervical lymphadenopathy Heartburn Chronic RUQ pain Right femoral fracture Tinnitus Vertigo Ectopic cardiac beats Palpitations RUQ abdominal pain Cervical radiculopathy Chronic back pain Left-sided low back pain with left-sided sciatica Hypocalcemia Tobacco abuse Bronchitis Morbid obesity Post herpetic neuralgia NICOLÁS (generalized anxiety disorder) ADHD (attention deficit hyperactivity disorder), combined type Numbness and tingling of both upper extremities Numbness of both lower extremities Migraine without aura and with status migrainosus, not intractable History of gestational diabetes Almaz's thyroiditis History of acne Thyroid disease Melanoma Home Medications ?Medication ?Instructions ?Recorded ?Last Taken ?Type ketoprofen 75 mg capsule 75 mg PO Q6H PRN Migraine Symptoms 11/01/23 Unknown Rx #100 caps albuterol sulfate 2.5 mg/3 mL 2.5 mg (3 mL) inhalation Q6H PRN 01/16/24 Unknown Rx (0.083 %) solution for nebulization shortness of breath or wheezing #90 mL levothyroxine 137 mcg tablet 137 mcg PO DAILY synthroid #90 tabs 02/09/24 05/01/24 Rx pantoprazole 40 mg tablet,delayed 40 mg PO .breakfast 1 month #30 03/12/24 Unknown Rx release tabs compress.stocking,knee,reg,lrg #2 ea 03/21/24 Unknown Rx leuprolide 3.75 mg intramuscular 3.75 mg IM QMONTH #1 ea 04/04/24 Unknown Rx syringe kit (Lupron Depot) atomoxetine 40 mg capsule 40 mg PO QAM #30 caps 04/16/24 Unknown Rx hydroxyzine HCl 25 mg tablet 25 mg PO BID PRN anxiety #30 tabs 04/16/24 Unknown Rx sertraline 100 mg tablet 100 mg PO QDAY #30 tabs 04/16/24 Unknown Rx lidocaine 5 % topical patch 1 patch topical DAILY #15 ea 04/23/24 Unknown Rx (Lidoderm) clopidogrel 75 mg tablet (Plavix) 75 mg PO DAILY #90 tabs 05/01/24 Unknown Rx amlodipine 5 mg tablet 5 mg PO DAILY for blood pressure 05/02/24 Unknown Rx #90 TABLETS prochlorperazine maleate 10 mg 10 mg PO BID PRN for migraine #30 05/02/24 Unknown Rx tablet TABLETS albuterol sulfate 90 mcg/actuation 2 puff inhalation Q6H PRN 05/03/24 Unknown Rx aerosol inhaler shortness of breath or wheezing #8.5 grams tizanidine 4 mg tablet 4 mg PO TID 05/03/24 Unknown History ondansetron 4 mg disintegrating 4 mg PO Q8H PRN PRN Nausea #10 tabs 05/06/24 Unknown Rx tablet dicyclomine 20 mg tablet 20 mg PO BID #60 tabs 05/14/24 Unknown Rx rivaroxaban 15 mg (42)-20 mg (9) See Rx Instructions PO .COMPLEX 05/20/24 Unknown Rx tablets in a starter pack (Xarelto #51 tabs DVT-PE Treatment 30-Day Starter) doxycycline hyclate 100 mg capsule 100 mg PO BID #20 caps 05/29/24 Unknown Rx ursodiol 300 mg capsule 300 mg PO BID #180 caps 05/29/24 Unknown Rx sucralfate 1 gram tablet (Carafate) 1 g PO TID PRN abdominal pain 7 06/17/24 Unknown Rx days #21 tabs Allergy/AdvReac Type Severity Reaction Status Date / Time latex Allergy Itching Verified 06/17/24 18:17 naproxen Allergy Unknown Verified 06/17/24 18:17 Penicillins (PCN) Allergy Rash Verified 06/17/24 18:17 escitalopram (From Lexapro) AdvReac Intermediate Lightheaded Verified 06/17/24 18:17 sertraline (From Zoloft) AdvReac Intermediate Dizzy & Verified 06/17/24 18:17 Headache NSAIDS (Non-Steroidal AdvReac Mild Other Verified 06/17/24 18:17 Anti-Inflamma hydrocodone (From Vicodin) AdvReac Other Verified 06/17/24 18:17 ketorolac (From Toradol) AdvReac Other Verified 06/17/24 18:17 Family History Grandmother Diabetes Hypertension Hypercholesterolemia Thyroid disorder Mother Family history of skin cancer Other High cholesterol Surgical History History of carpal tunnel surgery of right wrist History of surgery on lower extremity Status post incision and drainage (~04/15/22) History of total vaginal hysterectomy (TVH) (~03/22/22) History of thyroidectomy History of surgery on arm Social History Smoking Status: Current every day smoker tobacco type: cigarettes Tobacco: How many years used: 13 Electronic Cigarette Use: not used second hand exposure: No alcohol intake: current alcohol intake frequency: holidays/special occasions only substance use type: does not use caffeine: Yes what type of physical activity do you participate in: none seatbelt use: always do you feel safe at home: Yes additional social history: emmy EXAM Physical Exam Const Vital Signs: 06/17/24 18:17 06/17/24 20:39 Temperature 98.0 F Temperature Source Oral Pulse Rate 95 68 Respiratory Rate 16 Blood Pressure 136/119 H 128/78 H Blood Pressure Mean 124 94 Pulse Ox 100 100 Oxygen Delivery Method Room Air MDM MDM MDM Narrative Medical decision making narrative: HISTORY OF PRESENT ILLNESS: 39-year-old female presents with abdominal pain. Notes epigastric and upper quadrant abdominal pain. Notes this has been ongoing for 2 weeks. It is intermittent in nature. Notes is worse with food. Denies history of cholecystectomy. Denies drinking alcohol. Denies chest pain or shortness of breath. Denies any black stools or dark stools. REVIEW OF SYSTEMS: Pertinent positives: Abdominal pain Pertinent negatives: Vomiting, urinary complaints this has been ongoing for PHYSICAL EXAM: Nursing triage notes reviewed, Vital signs reviewed Constitutional: please see mdm HENT: MMM Eyes: Pupils equal round and reactive to light, Extraocular muscles intact Neck: No stridor, no JVD, full neck ROM Lungs: Clear to auscultation, No wheezing or rales. No increased work of breathing, no conversational dyspnea, no accessory muscle use, no nasal flaring. No respiratory distress noted Heart: Regular rate and rhythm, No murmurs, No rubs and No gallops, 2+ distal pulses (radial, femoral, posterior tibial) in all extremities Abdomen: Soft, mild tenderness, but no rigidity, rebound or guarding, no obvious peritoneal signs, no palpable pulsatile abdominal masses, no auscultated abdominal bruit : No CVAT Extremities: No edema Neuro: No new focal neurological deficits, cranial nerves II through XII intact, 5/5 strength in all present extremities. Intact sensation to light touch in all present extremities, 2+ reflexes bilateral patella tendons. Skin: No rash or lesions noted MEDICAL DECISION MAKING: Chief Complaint: Abdominal pain External records reviewed: reviewed prior imaging studies: Reviewed CT scan from April 2024 approximate 1 month ago which showed right ovarian cyst that increased in size. Status post hysterectomy. Noted fat infiltration of the liver. Factors affecting care: None alcoholic fatty liver disease, right ovarian cyst, pelvic adhesive disease, PCOS, status post hysterectomy Social determinants of health: Denies alcohol use History obtained from others: none Consults: none MDM Narrative: Patient was initially hemodynamically stable, afebrile and nontoxic-appearing. Exam without significant tenderness. No peritoneal signs. There is no report of chest pain or shortness of breath to suggest atypical ACS. I considered the following differential diagnosis: AAA, small bowel obstruction, abdominal perforation, appendicitis, pancreatitis, hepatobiliary pathology (acute cholecystitis), mesenteric ischemia, pathology (ie nephrolithiasis, pyelonephritis). I considered an acute surgical pathology abdomen such as perforation or obstruction I thought this was less likely given the benign nature of the patient's abdominal exam, stable vitals. I opted to screen the patient with labs and pursue a right quadrant ultrasound given the pain was located epigastric/right upper quadrant was worse with food. This is more consistent with hepatobiliary disease. ALL IMAGES (IF OBTAINED) HAVE BEEN PERSONALLY REVIEWED AND INTERPRETED BY MYSELF. CBC without leukocytosis, no anemia or thrombocytopenia CMP without evidence of acute kidney injury, significant electrolyte abnormality, anion gap to suggest end organ hypo-perfusion, no evidence of metabolic acidosis with a normal bicarbonate, no evidence of hepatobiliary obstructive pathology. Lipase is wnl indicating no pancreatic inflammation. Right upper quadrant ultrasound negative for acute cholecystitis Urinalysis shows no evidence of urinary inflammation suggestive of UTI Urine test is negative Repeat abdominal exam remained benign. The synthesis of the patient's history, physical exam, labs and images suggest no acute life or limb threatening etiology. Patient will require close outpatient follow-up with a specialist. I refer the patient to the GI specialist, Dr. Tracy. I started patient on Carafate for additional relief. She was ready on a PPI. Strict return precautions were discussed The patient and/or family, caregivers express understanding. The patient and/or family, caregivers agrees with the plan. Shared decision making: I will have a discussion with the patient and or visitors regarding risk/benefits of further testing or admission. They will be made aware of of the risk/benefits inherent in this decision they will be given the opportunity to voice understanding. Total critical care time today provided was at least 0 minutes. This excludes separately billable procedures. Critical care time (if documented) is secondary to the patient having high probability of clinically significant/life threatening deterioration in the patient's condition which required my urgent intervention. Impression: 1. Epigastric abdominal pain 2. Gastritis Dispo: Discharge home This note was generated with [employer] dictation software. It may contain incorrect words, spelling, and punctuation that were not noted in review of the chart prior to signing. Lab Data Labs: Laboratory Results - last 24 hr 06/17/24 06/17/24 19:11 19:56 WBC 6.4 RBC 5.27 Hgb 15.1 H Hct 44.4 MCV 84.3 MCH 28.7 MCHC 34.0 RDW Std Deviation 38.8 RDW Coeff of Mikel 12.7 Plt Count 228 MPV 11.1 Immature Gran % (Auto) 0.200 Neut % (Auto) 57.1 Lymph % (Auto) 31.3 Aiken % (Auto) 7.2 Eos % (Auto) 3.9 Baso % (Auto) 0.3 Absolute Neuts (auto) 3.7 Absolute Lymphs (auto) 2.00 Nucleated RBC % 0 Sodium 138 Potassium 3.7 Chloride 106 Carbon Dioxide 26.0 Anion Gap 6 BUN 9 Creatinine 0.79 Estim Creat Clear Calc 122.91 Est GFR (MDRD) Af Amer 105 Est GFR (MDRD) Non-Af 87 BUN/Creatinine Ratio 11.3 Glucose 103 Calcium 9.6 Total Bilirubin 0.30 AST 19 ALT 33 Alkaline Phosphatase 70 Total Protein 8.0 Albumin 4.2 Globulin 3.8 Albumin/Globulin Ratio 1.1 Lipase 36 Serum , Qual NEGATIVE Urine Color Yellow Urine Clarity Sl. Cloudy Urine pH 6.5 Ur Specific Eakly 1.015 Urine Protein 15 H Urine Glucose (UA) Normal Urine Ketones Negative Urine Occult Blood Negative Urine Nitrite Negative Urine Bilirubin Negative Urine Urobilinogen 1 H Ur Leukocyte Esterase 25 H Urine RBC 0-5 SEEN Urine WBC 5-10 SEEN Ur Squamous Epith Cells 0-5 SEEN Urine Bacteria 1+ Urine Mucus 0 SEEN Radiography Diagnostic Testing: Clinical Impression(s) from Imaging Studies Gallbladder Ultrasound 06/17/24 21:02 IMPRESSION: Fatty liver. Right renal cyst. Electronically Signed: Manuelito Martinez DO at 21:50 EST Reading Location ID and State: [facility] / [place] Tel [phone], Service support , Discharge Plan Triage Chief Complaint: Abd Pain ED Provider: Augie Adams Dx/Rx/DC Orders Clinical Impression: Epigastric abdominal pain Instructions: ED Gastritis (Adult) Prescriptions: New sucralfate [Carafate] 1 gram tablet 1 g PO TID PRN (Reason: abdominal pain) 7 Days Qty: 21 0RF No Action ketoprofen 75 mg capsule 75 mg PO Q6H PRN (Reason: Migraine Symptoms) Qty: 100 1RF Rx Instructions: 1 cap PO at on set of headache max of 3 in 24 hours, max 20 per month pantoprazole 40 mg tablet,delayed release (DR/EC) 40 mg PO .breakfast 30 Days Qty: 30 2RF Rx Instructions: Take 1 hour before breakfast. hydroxyzine HCl 25 mg tablet 25 mg PO BID PRN (Reason: anxiety) Qty: 30 1RF atomoxetine 40 mg capsule 40 mg PO QAM Qty: 30 1RF sertraline 100 mg tablet 100 mg PO QDAY Qty: 30 1RF tizanidine 4 mg tablet 4 mg PO TID Patient Comments: reports not taking it, but has prescription at home (05/14/2024) albuterol sulfate 90 mcg/actuation HFA aerosol inhaler 2 puff inhalation Q6H PRN (Reason: shortness of breath or wheezing) Qty: 8.5 0RF doxycycline hyclate 100 mg capsule 100 mg PO BID Qty: 20 0RF ursodiol 300 mg capsule 300 mg PO BID Qty: 180 1RF Xarelto DVT-PE Treat 30d Start 15 mg (42)- 20 mg (9) tablets,dose pack See Rx Instructions .ROUTE .COMPLEX Qty: 51 0RF Rx Instructions: take one-15 mg tablet twice daily for 21 days, then one-20 mg tablet once daily; must take with meal/food lidocaine [Lidoderm] 5 % adhesive patch,medicated 1 patch topical DAILY Qty: 15 0RF Rx Instructions: leave on most painful area for up to 12 hrs ondansetron 4 mg tablet,disintegrating 4 mg PO Q8H PRN PRN (Reason: Nausea) Qty: 10 0RF albuterol sulfate 2.5 mg /3 mL (0.083 %) solution for nebulization 2.5 mg inhalation Q6H PRN (Reason: shortness of breath or wheezing) Qty: 90 1RF levothyroxine 137 mcg tablet 137 mcg PO DAILY Qty: 90 1RF (DME) compress.stocking,knee,reg,lrg Misc See Rx Instructions .MEDSUPPLY Qty: 2 1RF Rx Instructions: wear daily for venous insufficiency 20-30 mmHg Lupron Depot 3.75 mg syringe kit 3.75 mg IM QMONTH Qty: 1 12RF clopidogrel [Plavix] 75 mg tablet 75 mg PO DAILY Qty: 90 1RF prochlorperazine maleate 10 mg tablet 10 mg PO BID PRN (Reason: for migraine) Qty: 30 0RF amlodipine 5 mg tablet 5 mg PO DAILY Qty: 90 0RF dicyclomine 20 mg tablet 20 mg PO BID Qty: 60 0RF Primary Care Provider: Jose Alejandro London Referrals: Jose Alejandro London MD [Primary Care Provider] - Friend,DO Ralph [Med Staff - Active Staff] - Activity Restrictions/Additional Instructions: Thank you for trusting us with your care today! Your labs images were reassuring. Specifically no sign of pancreatitis. No sign of gallstones or acute gallbladder pathology. In terms of your right lower quad abdominal pain and not suspect you are suffering from acute appendicitis as he did not have signs of for example elevated white blood cell count, no fever. I suspect your symptoms of pain related to your ovarian cyst. Ovarian cyst while it may cause pain is not life-threatening as you have had your other associated structures that would cause a life or reproductive threatening injury removed (i.e. uterus and fallopian tubes) Please take Tylenol (2 pills, 650 mg), every 6 hours as needed for pain and fever control. Please continue take pantoprazole. I prescribed you Carafate for additional relief. Please return to the emergency department if your symptoms change or worsen. Please follow with your primary care physician for further outpatient evaluation and management. Print Language: Romanian Disposition Disposition: Home, Self Care
--- NOTE | 2024-06-17 21:02 | US_ITS ---
INDICATION: epigastric pain after eating EXAMINATION: Ultrasound US Abdomen RUQ (limited) TECHNIQUE: Nelson-scale and color Doppler imaging was performed of the abdomen. COMPARISON: FINDINGS: LIVER: There is fatty echotexture measuring 18.6 cm. No focal hepatic lesion. No intrahepatic biliary ductal dilatation. There is no free fluid. GALLBLADDER AND BILIARY TREE: No shadowing gallstone, pericholecystic fluid or gallbladder wall thickening is demonstrated. The proximal common bile duct measures 4 mm, which is within normal limits for the patient''s age. SONOGRAPHIC MALONEY''S SIGN: Negative. PANCREAS: No focal abnormality is demonstrated in the pancreas. Limited visualization of the pancreatic tail. No pancreatic ductal dilatation. RIGHT KIDNEY: 11.5 x 5.3 x 4.7 cm. The cortex is 15 mm. There is no hydronephrosis. No shadowing calculusor perinephric collection is demonstrated. 1.1 cm cyst. VESSELS: Submitted longitudinal images of the intra-abdominal aorta demonstrate no gross abnormalities and are unremarkable. The IVC is patent. US/Gallbladder IMPRESSION: Fatty liver. Right renal cyst. Electronically Signed: Manuelito Martinez DO at 21:50 EST Reading Location ID and State: [facility] / [place] Tel [phone], Service support ,
[2024-06-17] MEDS: Ondansetron ODT 4 MG Tablet PO (21:14)
[2024-06-17] MEDS: oxyCODONE 5 MG Tablet PO (21:14)
[2024-06-17] MEDS: Famotidine 20 MG Tablet PO (21:14)
[2024-06-17] MEDS: Sucralfate 1 GM Tablet PO (21:14)
[2024-06-17 21:31] LABS: Lipase 36 U/L (13-75)
[2024-06-17 22:00] VITALS: BP 128/89
[2024-06-17 22:13] VITALS: BP 128/89; PULSE 78; RESP 18; TEMP 36.6; O2SAT 99
== END 2024-06-17 22:33 | disposition home or self-care (01) ==
PROVIDERS: Emergency Provider Emergency Medicine; PCP Internal Medicine; Referring Provider Emergency Medicine; Visit Provider Emergency Medicine
DX: R10.13 Epigastric pain (principal); J42 Unspecified chronic bronchitis; K29.70 Gastritis, unspecified, without bleeding; N83.201 Unspecified ovarian cyst, right side; I10 Essential (primary) hypertension; M54.9 Dorsalgia, unspecified; K70.9 Alcoholic liver disease, unspecified; F41.1 Generalized anxiety disorder; Z79.01 Long term (current) use of anticoagulants; Z79.02 Long term (current) use of antithrombotics/antiplatelets; Z79.899 Other long term (current) drug therapy; Z86.718 Personal history of other venous thrombosis and embolism; Z90.710 Acquired absence of both cervix and uterus
CPT/HCPCS: 76705; 80053; 81001; 83690; 84703; 85025; 99283; A4216

== ENCOUNTER 2024-06-18 10:22 | Emergency (ER) | payer MEDICAID, SELFPAY ==
[2024-06-18 10:23] VITALS: BP 135/91; PULSE 88; RESP 19; TEMP 36.4; O2SAT 99; BMI 39.4
--- NOTE | 2024-06-18 10:56 | EX.ED.DYSGE1 ---
HPI History of Present Illness Chief Complaint: Abd Pain Narrative Narrative: Chief complaint and HPI: Right-sided abdominal pain. 39-year-old female with past medical history of NAFLD, migraines, HTN, DANA presents for evaluation of right-sided abdominal pain. History taken by patient as well as medical record. Patient follows with GI regularly for abdominal pain. She states for the past 3 days she has been having worsening right-sided abdominal pain. Associated symptom is nausea symptomatic fevers, constipation. Denies any shortness of breath, chest pain, vomiting, diarrhea, dysuria bloody bowel movement. Of note, patient was seen in our emergency department yesterday and at that time was complaining of epigastric and upper quadrant abdominal pain where today it is more right lower. Note from yesterday states that it was ongoing for 2 weeks. Patient had laboratory workup that was unremarkable as well as ultrasound of the gallbladder. Patient was discharged home with follow-up. Patient states since discharge home she is continue to have pain. Of note, patient has a history of migraines. She states last Monday she was in the doctor's office having her son seen when she leaned backwards and minorly hit her head on the wall. She states since then she has been having increase in her migraines. She has been taking her migraine medication. Denies any weakness, neurological deficits, confusion, numbness/tingling. Review of systems: See HPI Medications: As listed on the chart Allergies: As listed on the chart PFSH: Per chart Vital signs: As listed on the chart. Reviewed. Physical exam: Gen: A&O x3, NAD Head: Normocephalic, atraumatic Eyes: No sclera icterus, conjunctiva clear, PERRL, EOMI ENT: Tympanic membranes clear bilaterally, moist mucous membranes, No facial asymmetry Neck: Trachea midline, No JVD, full range of motion, nontender, no meningismus CV: RRR, no murmurs, no peripheral edema Resp: Lungs CTA BL, no w/r/c GI: Abd soft, non-distended, diffusely tender to palpation on the right and epigastric, no r/r/g : No CVA tenderness Musc: Full ROM, no deformity, strength +5/5 in all extremities Skin: Warm, dry, intact Neuro: Alert, oriented, grossly intact, sensation intact, no focal deficits Psych: Cooperative, appropriate mood and affect PFSH PFSH Medical History (Updated 06/18/24 @ 13:[address] Chuck Allen, DO) DVT (deep venous thrombosis) Herniated nucleus pulposus, C4-5 PCOS (polycystic ovarian syndrome) Deep vein blood clot of right lower extremity Chronic bronchitis Right foot sprain Right ankle sprain ADD (attention deficit disorder) Breast pain, right Contact with or exposure to other viral diseases Dermatitis PONV (postoperative nausea and vomiting) Leg cramps Anxiety and depression Left shoulder pain Depression Chronic pain Cancer Arthritis Fatty liver Easy bruising Restless legs Back pain Injury of head and neck Syncope Fibromyalgia History of pain when walking Hypertension History of echocardiogram History of stress test Cardiology follow-up encounter Localized swelling, mass and lump, neck Cervical lymphadenopathy Heartburn Chronic RUQ pain Right femoral fracture Tinnitus Vertigo Ectopic cardiac beats Palpitations RUQ abdominal pain Cervical radiculopathy Chronic back pain Left-sided low back pain with left-sided sciatica Hypocalcemia Tobacco abuse Bronchitis Morbid obesity Post herpetic neuralgia NICOLÁS (generalized anxiety disorder) ADHD (attention deficit hyperactivity disorder), combined type Numbness and tingling of both upper extremities Numbness of both lower extremities Migraine without aura and with status migrainosus, not intractable History of gestational diabetes Almaz's thyroiditis History of acne Thyroid disease Melanoma Home Medications ?Medication ?Instructions ?Recorded ?Last Taken ?Type ketoprofen 75 mg capsule 75 mg PO Q6H PRN Migraine Symptoms 11/01/23 Unknown Rx #100 caps albuterol sulfate 2.5 mg/3 mL 2.5 mg (3 mL) inhalation Q6H PRN 01/16/24 Unknown Rx (0.083 %) solution for nebulization shortness of breath or wheezing #90 mL levothyroxine 137 mcg tablet 137 mcg PO DAILY synthroid #90 tabs 02/09/24 05/01/24 Rx pantoprazole 40 mg tablet,delayed 40 mg PO .breakfast 1 month #30 03/12/24 Unknown Rx release tabs compress.stocking,knee,reg,lrg #2 ea 03/21/24 Unknown Rx leuprolide 3.75 mg intramuscular 3.75 mg IM QMONTH #1 ea 04/04/24 Unknown Rx syringe kit (Lupron Depot) atomoxetine 40 mg capsule 40 mg PO QAM #30 caps 04/16/24 Unknown Rx hydroxyzine HCl 25 mg tablet 25 mg PO BID PRN anxiety #30 tabs 04/16/24 Unknown Rx sertraline 100 mg tablet 100 mg PO QDAY #30 tabs 04/16/24 Unknown Rx lidocaine 5 % topical patch 1 patch topical DAILY #15 ea 04/23/24 Unknown Rx (Lidoderm) clopidogrel 75 mg tablet (Plavix) 75 mg PO DAILY #90 tabs 05/01/24 Unknown Rx amlodipine 5 mg tablet 5 mg PO DAILY for blood pressure 05/02/24 Unknown Rx #90 TABLETS prochlorperazine maleate 10 mg 10 mg PO BID PRN for migraine #30 05/02/24 Unknown Rx tablet TABLETS albuterol sulfate 90 mcg/actuation 2 puff inhalation Q6H PRN 05/03/24 Unknown Rx aerosol inhaler shortness of breath or wheezing #8.5 grams tizanidine 4 mg tablet 4 mg PO TID 05/03/24 Unknown History ondansetron 4 mg disintegrating 4 mg PO Q8H PRN PRN Nausea #10 tabs 05/06/24 Unknown Rx tablet dicyclomine 20 mg tablet 20 mg PO BID #60 tabs 05/14/24 Unknown Rx rivaroxaban 15 mg (42)-20 mg (9) See Rx Instructions PO .COMPLEX 05/20/24 Unknown Rx tablets in a starter pack (Xarelto #51 tabs DVT-PE Treatment 30-Day Starter) doxycycline hyclate 100 mg capsule 100 mg PO BID #20 caps 05/29/24 Unknown Rx ursodiol 300 mg capsule 300 mg PO BID #180 caps 05/29/24 Unknown Rx sucralfate 1 gram tablet (Carafate) 1 g PO TID PRN abdominal pain 7 06/17/24 Unknown Rx days #21 tabs Allergy/AdvReac Type Severity Reaction Status Date / Time latex Allergy Itching Verified 06/17/24 18:17 naproxen Allergy Unknown Verified 06/17/24 18:17 Penicillins (PCN) Allergy Rash Verified 06/17/24 18:17 escitalopram (From Lexapro) AdvReac Intermediate Lightheaded Verified 06/17/24 18:17 sertraline (From Zoloft) AdvReac Intermediate Dizzy & Verified 06/17/24 18:17 Headache NSAIDS (Non-Steroidal AdvReac Mild Other Verified 06/17/24 18:17 Anti-Inflamma hydrocodone (From Vicodin) AdvReac Other Verified 06/17/24 18:17 ketorolac (From Toradol) AdvReac Other Verified 06/17/24 18:17 Family History Grandmother Diabetes Hypertension Hypercholesterolemia Thyroid disorder Mother Family history of skin cancer Other High cholesterol Surgical History History of carpal tunnel surgery of right wrist History of surgery on lower extremity Status post incision and drainage (~04/15/22) History of total vaginal hysterectomy (TVH) (~03/22/22) History of thyroidectomy History of surgery on arm Social History Smoking Status: Current every day smoker tobacco type: cigarettes Tobacco: How many years used: 13 Electronic Cigarette Use: not used second hand exposure: No alcohol intake: current alcohol intake frequency: holidays/special occasions only substance use type: does not use caffeine: Yes what type of physical activity do you participate in: none seatbelt use: always do you feel safe at home: Yes additional social history: emmy EXAM Physical Exam Const Vital Signs: 06/18/24 10:23 06/18/24 12:22 06/18/24 12:45 Temperature 97.5 F L 97.5 F L Temperature Source Temporal Pulse Rate 88 85 85 Respiratory Rate 19 H 16 16 Blood Pressure 135/91 H 135/91 H Blood Pressure Mean 105 105 Pulse Ox 99 99 Oxygen Delivery Method Room Air MDM MDM MDM Narrative Medical decision making narrative: 39-year-old female with past medical history of NAFLD, migraines, HTN, DANA presents for evaluation of right-sided abdominal pain. Patient also endorses an increase in migraines after hitting her head on a wall 2 weeks ago. I do not feel that the patient's increase in migraines has any correlation to her accidentally hitting her head on the wall. It was not a significant trauma or injury. Patient has no indicate for CT head. I did explain this to her. She confirmed understanding. As for her right-sided abdominal pain. Patient just had a ultrasound as well as laboratory workup that was relatively unremarkable. Differential also includes appendicitis and colitis. Will repeat labs as well as obtain CT abdomen pelvis. Patient was offered IV pain medication for her migraine as well as abdominal pain. She declined all pain medicine as well as any IV medications. Patient will be given p.o. Zofran for her nausea. She confirmed understanding of the plan. CBC without leukocytosis or anemia. CMP unremarkable without ESAU, transaminitis. Lipase unremarkable. UA negative for UTI. Urine test negative. CT abdomen pelvis shows she has known fatty liver. Stable small cyst in the right ovary. Small hiatal hernia. At this point in time no clear etiology for patient's pain. May be secondary to her small cyst however patient has a history of cyst. Patient was updated of all the results. Plan is for discharge home. Follow-up with PCP. She confirmed understanding the plan. Return precautions explained. Impression: 1. Abdominal pain 2. History of migraines Lab Data Labs: Laboratory Results - last 24 hr 06/18/24 06/18/24 10:40 11:53 WBC 4.3 L RBC 4.92 Hgb 13.8 Hct 41.8 MCV 85.0 MCH 28.0 MCHC 33.0 RDW Std Deviation 39.3 RDW Coeff of Mikel 12.8 Plt Count 172 MPV 11.0 Immature Gran % (Auto) 0.200 Neut % (Auto) 59.5 Lymph % (Auto) 25.5 [place] % (Auto) 9.6 Eos % (Auto) 4.7 Baso % (Auto) 0.5 Absolute Neuts (auto) 2.5 Absolute Lymphs (auto) 1.09 Nucleated RBC % 0 Sodium 139 Potassium 3.5 Chloride 106 Carbon Dioxide 28.0 Anion Gap 5 BUN 9 Creatinine 0.84 Estim Creat Clear Calc 115.59 Est GFR (MDRD) Af Amer 98 Est GFR (MDRD) Non-Af 81 BUN/Creatinine Ratio 10.7 Glucose 117 H Calcium 9.1 Total Bilirubin 0.50 AST 18 ALT 36 Alkaline Phosphatase 64 Total Protein 7.4 Albumin 3.8 Globulin 3.6 Albumin/Globulin Ratio 1.1 Lipase 26 Urine Color Yellow Urine Clarity Clear Urine pH 7.0 Ur Specific [place] 1.005 Urine Protein 15 H Urine Glucose (UA) Normal Urine Ketones Negative Urine Occult Blood Negative Urine Nitrite Negative Urine Bilirubin Negative Urine Urobilinogen Normal Ur Leukocyte Esterase Negative Urine RBC 0 SEEN Urine WBC 0-5 SEEN Ur Squamous Epith Cells 5-10 SEEN Urine Bacteria 1+ Urine Mucus 0 SEEN Urine Test Negative Radiography Diagnostic Testing: Clinical Impression(s) from Imaging Studies Abdomen/Pelvis CT 06/18/24 10:57 IMPRESSION: Fatty infiltration of the liver. Mild hepatomegaly. Stable small cyst in the right ovary. Small hiatal hernia. Interval resolution of the right ovarian cyst. One or more dose reduction techniques were used (e.g., Automated exposure control, adjustment of the mA and/or kV according to patient size, use of iterative reconstruction technique). Reading Location: [facility] Discharge Plan Triage Chief Complaint: Abd Pain ED Provider: Chuck Allen Dx/Rx/DC Orders Clinical Impression: Abdominal pain Instructions: ED Abdominal Pain Unkn Cause Fem Prescriptions: No Action ketoprofen 75 mg capsule 75 mg PO Q6H PRN (Reason: Migraine Symptoms) Qty: 100 1RF Rx Instructions: 1 cap PO at on set of headache max of 3 in 24 hours, max 20 per month pantoprazole 40 mg tablet,delayed release (DR/EC) 40 mg PO .breakfast 30 Days Qty: 30 2RF Rx Instructions: Take 1 hour before breakfast. hydroxyzine HCl 25 mg tablet 25 mg PO BID PRN (Reason: anxiety) Qty: 30 1RF atomoxetine 40 mg capsule 40 mg PO QAM Qty: 30 1RF sertraline 100 mg tablet 100 mg PO QDAY Qty: 30 1RF tizanidine 4 mg tablet 4 mg PO TID Patient Comments: reports not taking it, but has prescription at home (05/14/2024) albuterol sulfate 90 mcg/actuation HFA aerosol inhaler 2 puff inhalation Q6H PRN (Reason: shortness of breath or wheezing) Qty: 8.5 0RF doxycycline hyclate 100 mg capsule 100 mg PO BID Qty: 20 0RF ursodiol 300 mg capsule 300 mg PO BID Qty: 180 1RF Xarelto DVT-PE Treat 30d Start 15 mg (42)- 20 mg (9) tablets,dose pack See Rx Instructions .ROUTE .COMPLEX Qty: 51 0RF Rx Instructions: take one-15 mg tablet twice daily for 21 days, then one-20 mg tablet once daily; must take with meal/food lidocaine [Lidoderm] 5 % adhesive patch,medicated 1 patch topical DAILY Qty: 15 0RF Rx Instructions: leave on most painful area for up to 12 hrs ondansetron 4 mg tablet,disintegrating 4 mg PO Q8H PRN PRN (Reason: Nausea) Qty: 10 0RF sucralfate [Carafate] 1 gram tablet 1 g PO TID PRN (Reason: abdominal pain) 7 Days Qty: 21 0RF albuterol sulfate 2.5 mg /3 mL (0.083 %) solution for nebulization 2.5 mg inhalation Q6H PRN (Reason: shortness of breath or wheezing) Qty: 90 1RF levothyroxine 137 mcg tablet 137 mcg PO DAILY Qty: 90 1RF (DME) compress.stocking,knee,reg,lrg Misc See Rx Instructions .MEDSUPPLY Qty: 2 1RF Rx Instructions: wear daily for venous insufficiency 20-30 mmHg Lupron Depot 3.75 mg syringe kit 3.75 mg IM QMONTH Qty: 1 12RF clopidogrel [Plavix] 75 mg tablet 75 mg PO DAILY Qty: 90 1RF prochlorperazine maleate 10 mg tablet 10 mg PO BID PRN (Reason: for migraine) Qty: 30 0RF amlodipine 5 mg tablet 5 mg PO DAILY Qty: 90 0RF dicyclomine 20 mg tablet 20 mg PO BID Qty: 60 0RF Primary Care Provider: Jose Alejandro London Referrals: Jose Alejandro London MD [Primary Care Provider] - 3-5 Days Activity Restrictions/Additional Instructions: Return back to the ED if symptoms change or worsen Print Language: [place] Disposition Disposition: Home, Self Care Discharge Date/Time: 06/18/24 13:26
--- NOTE | 2024-06-18 10:57 | CT_ITS ---
PROCEDURE: ABDOMEN/PELVIS W IV CONT ONLY REASON FOR EXAM: Prior hysterectomy. Hypertension. Liver disease. TECHNIQUE: Abdomen and pelvis CT with intravenous contrast. IV CONTRAST: COMPARISON: No comparison is made with prior study dated May 06, 2024. Ne. FINDINGS: Lung bases: Stable mild atelectasis and/or scarring at the right lung base. Liver: Diffuse fatty infiltration. Hepatomegaly. Gallbladder: Unremarkable. Spleen: Unremarkable. Borderline splenomegaly. Pancreas: Unremarkable. Adrenals: Unremarkable. Kidneys: Stable small right renal cyst. Bladder: Unremarkable. Reproductive Organs: Prior hysterectomy. Adnexal regions are unremarkable. The previously seen right ovarian cyst has cleared. Bowel: Unremarkable. Appendix: Normal. Lymph nodes: No suspicious lymph node enlargement. Vasculature: Major vascular structures are unremarkable. Peritoneum / Retroperitoneum: No ascites. No free air. Small umbilical hernia containing fat. Bones: Unremarkable. CT/Abdomen/Pelvis W IV Cont ONLY IMPRESSION: Fatty infiltration of the liver. Mild hepatomegaly. Stable small cyst in the right ovary. Small hiatal hernia. Interval resolution of the right ovarian cyst. One or more dose reduction techniques were used (e.g., Automated exposure contr ol, adjustment of the mA and/or kV according to patient size, use of iterative reconstruction technique). Reading Location: [facility]
[2024-06-18 11:06] LABS: Absolute Lymphocyte Count 1.09 X10^3/uL (0.83-4.51); Absolute Neutrophil Count 2.5 X10^3/uL (2.0-7.7); Basophil# 0.02 X10^3/uL; Basophil% 0.5 % (0-1); Eosinophils% 4.7 % (0-5); Hematocrit 41.8 % (37-47); Hemoglobin 13.8 g/dL (12.0-15.0); Lymphocyte # 1.09 X10^3/ul (0.83-4.51); Lymphocyte % 25.5 % (19-41); Monocyte# 0.41 X10^3/uL; Monocyte% 9.6 % (0-10); NRBC Flagged by Analyzer 0 % (0-5); Neutrophil # 2.54 X10^3/uL (2.7-7.7); Neutrophil % 59.5 % (47-70); Platelet Count 172 K/mm3 (150-450); RBC Distribution Width CV 12.8 % (11.6-14.6); RBC Distribution Width SD 39.3 fl (35.1-43.9); Red Blood Count 4.92 M/mm3 (4.2-5.4); White Blood Count 4.3 K/mm3 (4.4-11.0)
[2024-06-18 11:23] LABS: ALB/GLOB Ratio 1.1 RATIO (0.9-2.4); AST(SGOT) 18 U/L (15-37); Alanine Aminotransfer ALT/SGPT 36 U/L (13-56); Albumin, Serum 3.8 g/dL (3.2-5.0); Alkaline Phosphatase 64 U/L (45-117); Anion Gap 5 (5-15); BUN 9 mg/dL (7-18); BUN/Creat Ratio 10.7 RATIO (10-20); Calcium,Total 9.1 mg/dL (8.5-10.1); Chloride 106 mmol/L (98-107); Creatinine, Serum 0.84 mg/dL (0.55-1.02); EST Glomerular Filtration Rate 81 mL/min (>60); Est Glom Filt Rate - Afr Amer 98 mL/min (>60); Estimated Creatinine Clearance 115.59 ml/min; Globulin 3.6 g/dL (2.2-4.2); Glucose 117 mg/dL (74-106); Lipase 26 U/L (13-75); Potassium 3.5 mmol/L (3.5-5.1); Protein, Total 7.4 g/dL (6.4-8.2); Sodium Level 139 mmol/L (136-145)
[2024-06-18] MEDS: Ondansetron ODT 4 MG Tablet PO (11:39)
[2024-06-18 11:59] LABS: Mucous, Urine 0 SEEN /hpf (<or=2+); Red Blood Cells-Urine 0 SEEN /hpf (0-5)
[2024-06-18 12:02] LABS: Color, Urine Yellow (Yellow); Glucose, Dipstick Normal (Normal); Ketone-Dipstick Negative (Negative); Leukocyte Esterase-Dipstick Negative /ul (Negative); Nitrite-Dipstick Negative (Negative); Occult Blood-Urine Negative /ul (Negative); Protein-Dipstick 15 mg/dl (Negative); Specific Gravity, Urine 1.005 (1.002-1.030); Urine Bilirubin Dipstick Negative (Negative); Urine Clarity Clear (Clear); Urine Urobilinogen Normal (Normal)
[2024-06-18 12:22] VITALS: PULSE 85; RESP 16
[2024-06-18 12:30] LABS: Bacteria 1+ /hpf (None Seen); Squamous Epithelial Cells - UA 5-10 SEEN /hpf (5-10); White Blood Cells 0-5 SEEN /hpf (0-5)
[2024-06-18 12:35] LABS: Internal QC Validated? YES +Cl - CLEAR BKGD; Pregnancy, Urine Negative Negative
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
[2024-06-18 12:45] VITALS: BP 135/91; PULSE 85; RESP 16; TEMP 36.4; O2SAT 99
== END 2024-06-18 13:26 | disposition home or self-care (01) ==
PROVIDERS: Emergency Provider Surgery; PCP Internal Medicine; Visit Provider Surgery
DX: R10.11 Right upper quadrant pain (principal); J42 Unspecified chronic bronchitis; K44.9 Diaphragmatic hernia without obstruction or gangrene; N83.201 Unspecified ovarian cyst, right side; I10 Essential (primary) hypertension; G43.909 Migraine, unspecified, not intractable, without status migrainosus; M54.9 Dorsalgia, unspecified; G89.29 Other chronic pain; K76.0 Fatty (change of) liver, not elsewhere classified; K59.00 Constipation, unspecified; G47.33 Obstructive sleep apnea (adult) (pediatric); F17.210 Nicotine dependence, cigarettes, uncomplicated; Z79.01 Long term (current) use of anticoagulants; Z79.02 Long term (current) use of antithrombotics/antiplatelets; Z79.890 Hormone replacement therapy; Z79.899 Other long term (current) drug therapy
CPT/HCPCS: 74177; 80053; 81001; 81025; 83690; 85025; 99283; Q9967; A4216

== ENCOUNTER 2024-06-28 19:45 | Emergency (ER) | payer MEDICAID, SELFPAY ==
[2024-06-28 19:46] VITALS: BP 151/83; PULSE 89; RESP 16; TEMP 36.8; O2SAT 100; BMI 39.7
--- NOTE | 2024-06-28 20:12 | US_ITS ---
EXAM: ULTRASOUND OF THE LEFT EXTREMITY CLINICAL HISTORY: Rule out right leg DVT. COMPARISON: No prior venous Doppler examination is available for comparison. TECHNIQUE: Ultrasound of deep venous structures of the right lower extremity with gonzalez scale and color Doppler imaging and spectral Doppler imaging. FINDINGS: The right common femoral, femoral and popliteal veins are normally compressible with normal spontaneous venous flow. Segmentally visualized right posterior tibial veins demonstrate normal venous flow. No evidence of thrombus within the contralateral left common femoral vein. US/Venous Duplex Imag/Limited/Uni IMPRESSION: No DVT in the right lower extremity. Reading Location: [id number]
--- NOTE | 2024-06-28 20:55 | ED.VIS.LOWEX ---
HPI History of Present Illness Chief Complaint: Lower Extremity Injury Informant: patient Narrative Narrative: Patient is a 39-year-old female with history of prior DVTs of her lower leg, superficial thrombosis of the right lower extremity and symptomatic varicose veins as well as chronic pain (and pain management) presenting today with right thigh pain. Patient states she just stopped Xarelto 1 week ago. She notes she has been more active than normal and over the past few days has had increased pain of her right medial proximal thigh and feels it is bulging out now. She is worried she may be developed another blood clot and came back in. She notes she is due to have vein surgery with Dr. Enrique on July 23 on this leg. She denies any chest pain or shortness of breath. She is otherwise been feeling well. [facility] Medical History RUQ abdominal pain DVT (deep venous thrombosis) Herniated nucleus pulposus, C4-5 PCOS (polycystic ovarian syndrome) Deep vein blood clot of right lower extremity Chronic bronchitis Right foot sprain Right ankle sprain ADD (attention deficit disorder) Breast pain, right Contact with or exposure to other viral diseases Dermatitis PONV (postoperative nausea and vomiting) Leg cramps Anxiety and depression Left shoulder pain Depression Chronic pain Cancer Arthritis Fatty liver Easy bruising Restless legs Back pain Injury of head and neck Syncope Fibromyalgia History of pain when walking Hypertension History of echocardiogram History of stress test Cardiology follow-up encounter Localized swelling, mass and lump, neck Cervical lymphadenopathy Heartburn Chronic RUQ pain Right femoral fracture Tinnitus Vertigo Ectopic cardiac beats Palpitations Cervical radiculopathy Chronic back pain Left-sided low back pain with left-sided sciatica Hypocalcemia Tobacco abuse Bronchitis Morbid obesity Post herpetic neuralgia NICOLÁS (generalized anxiety disorder) ADHD (attention deficit hyperactivity disorder), combined type Numbness and tingling of both upper extremities Numbness of both lower extremities Migraine without aura and with status migrainosus, not intractable History of gestational diabetes Almaz's thyroiditis History of acne Thyroid disease Melanoma Home Medications ?Medication ?Instructions ?Recorded ?Last Taken ?Type ketoprofen 75 mg capsule 75 mg PO Q6H PRN Migraine Symptoms 11/01/23 Unknown Rx #100 caps albuterol sulfate 2.5 mg/3 mL 2.5 mg (3 mL) inhalation Q6H PRN 01/16/24 Unknown Rx (0.083 %) solution for nebulization shortness of breath or wheezing #90 mL levothyroxine 137 mcg tablet 137 mcg PO DAILY synthroid #90 tabs 02/09/24 05/01/24 Rx pantoprazole 40 mg tablet,delayed 40 mg PO .breakfast 1 month #30 03/12/24 Unknown Rx release tabs compress.stocking,knee,reg,lrg #2 ea 03/21/24 Unknown Rx leuprolide 3.75 mg intramuscular 3.75 mg IM QMONTH #1 ea 04/04/24 Unknown Rx syringe kit (Lupron Depot) atomoxetine 40 mg capsule 40 mg PO QAM #30 caps 04/16/24 Unknown Rx hydroxyzine HCl 25 mg tablet 25 mg PO BID PRN anxiety #30 tabs 04/16/24 Unknown Rx sertraline 100 mg tablet 100 mg PO QDAY #30 tabs 04/16/24 Unknown Rx lidocaine 5 % topical patch 1 patch topical DAILY #15 ea 04/23/24 Unknown Rx (Lidoderm) clopidogrel 75 mg tablet (Plavix) 75 mg PO DAILY #90 tabs 05/01/24 Unknown Rx Held on 05/29/24. Instructions: Order Changed amlodipine 5 mg tablet 5 mg PO DAILY for blood pressure 05/02/24 Unknown Rx #90 TABLETS albuterol sulfate 90 mcg/actuation 2 puff inhalation Q6H PRN 05/03/24 Unknown Rx aerosol inhaler shortness of breath or wheezing #8.5 grams tizanidine 4 mg tablet 4 mg PO TID 05/03/24 Unknown History ondansetron 4 mg disintegrating 4 mg PO Q8H PRN PRN Nausea #10 tabs 05/06/24 Unknown Rx tablet dicyclomine 20 mg tablet 20 mg PO BID #60 tabs 05/14/24 Unknown Rx rivaroxaban 15 mg (42)-20 mg (9) See Rx Instructions PO .COMPLEX 05/20/24 Unknown Rx tablets in a starter pack (Xarelto #51 tabs DVT-PE Treatment 30-Day Starter) doxycycline hyclate 100 mg capsule 100 mg PO BID #20 caps 05/29/24 Unknown Rx ursodiol 300 mg capsule 300 mg PO BID #180 caps 05/29/24 Unknown Rx sucralfate 1 gram tablet (Carafate) 1 g PO TID PRN abdominal pain 7 06/17/24 Unknown Rx days #21 tabs prochlorperazine maleate 10 mg 10 mg PO BID PRN for migraine #30 06/26/24 Unknown Rx tablet TABLETS Allergy/AdvReac Type Severity Reaction Status Date / Time latex Allergy Itching Verified 06/28/24 19:47 naproxen Allergy Unknown Verified 06/28/24 19:47 Penicillins (PCN) Allergy Rash Verified 06/28/24 19:47 escitalopram (From Lexapro) AdvReac Intermediate Lightheaded Verified 06/28/24 19:47 sertraline (From Zoloft) AdvReac Intermediate Dizzy & Verified 06/28/24 19:47 Headache NSAIDS (Non-Steroidal AdvReac Mild Other Verified 06/28/24 19:47 Anti-Inflamma hydrocodone (From Vicodin) AdvReac Other Verified 06/28/24 19:47 ketorolac (From Toradol) AdvReac Other Verified 06/28/24 19:47 Family History Grandmother Diabetes Hypertension Hypercholesterolemia Thyroid disorder Mother Family history of skin cancer Other High cholesterol Surgical History History of carpal tunnel surgery of right wrist History of surgery on lower extremity Status post incision and drainage (~04/15/22) History of total vaginal hysterectomy (TVH) (~03/22/22) History of thyroidectomy History of surgery on arm Social History Smoking Status: Current every day smoker tobacco type: cigarettes Tobacco: How many years used: 13 Electronic Cigarette Use: not used second hand exposure: No alcohol intake: current alcohol intake frequency: holidays/special occasions only substance use type: does not use caffeine: Yes what type of physical activity do you participate in: none seatbelt use: always do you feel safe at home: Yes additional social history: emmy [place] ED Constitutional Constitutional ED: Denies chills or fever(s) Cardiovascular Cardiovascular: Denies chest pain or palpitations Respiratory/Chest Respiratory/Chest: Denies dyspnea Musculoskeletal Musculoskeletal: Reports other Details: Right thigh pain Integumentary Denies rash Neurologic Neurologic: Denies paresthesias or weakness EXAM Physical Exam Const Vital Signs: 06/28/24 19:46 Temperature 98.2 F Temperature Source Oral Pulse Rate 89 Respiratory Rate 16 Blood Pressure 151/83 H Blood Pressure Mean 105 Pulse Ox 100 Oxygen Delivery Method Room Air Positive well nourished and well developed General Appearance ED: well developed and NAD Chest Wall inspection of chest normal Resp normal respiratory effort and clear to auscultation bilaterally Cardio regular rate, regular rhythm and no murmurs Extremity Extremity Narrative: Subtle area of swelling to the right proximal medial thigh. Mild associated tenderness palpation. No fluctuance appreciated. No pulsatile mass appreciated. No overlying skin changes. 2+ DP pulses present. Compartments are soft. Normal range of motion of the hip. No bony tenderness. No effusions appreciated. Neuro oriented x3 Sensorium / Orientation: alert Motor Exam: Negative for general weakness Psych mental status grossly normal Skin no wounds Rashes: no rashes MDM MDM MDM Narrative Medical decision making narrative: Patient evaluated for with right medial thigh pain. Does have a history of DVTs and recently went off her anticoagulation. Is also been more active. Differential includes DVT, phlebitis or muscle strain. She does not have physical exam physis with abscess or infection. Venous duplex obtained which is negative for DVT. She is good distal pulses. Compartments are soft do not suspect more severe pathology such as acute vascular obstruction or compartment syndrome. Patient will be discharged home to follow-up with pain management as needed for further pain control and vascular surgery who she is already established with. Given return precautions. Discharged home in stable condition. Radiography Diagnostic Testing: Clinical Impression(s) from Imaging Studies Venous Duplex 06/28/24 20:12 IMPRESSION: No DVT in the right lower extremity. Reading Location: [id number] Discharge Plan Triage Chief Complaint: Lower Extremity Injury ED Provider: Loly Sierra Dx/Rx/DC Orders Clinical Impression: Acute pain of right thigh Instructions: ED Pain, Acute, Uncertain Cause Prescriptions: No Action ketoprofen 75 mg capsule 75 mg PO Q6H PRN (Reason: Migraine Symptoms) Qty: 100 1RF Rx Instructions: 1 cap PO at on set of headache max of 3 in 24 hours, max 20 per month pantoprazole 40 mg tablet,delayed release (DR/EC) 40 mg PO .breakfast 30 Days Qty: 30 2RF Rx Instructions: Take 1 hour before breakfast. hydroxyzine HCl 25 mg tablet 25 mg PO BID PRN (Reason: anxiety) Qty: 30 1RF atomoxetine 40 mg capsule 40 mg PO QAM Qty: 30 1RF sertraline 100 mg tablet 100 mg PO QDAY Qty: 30 1RF tizanidine 4 mg tablet 4 mg PO TID Patient Comments: reports not taking it, but has prescription at home (05/14/2024) albuterol sulfate 90 mcg/actuation HFA aerosol inhaler 2 puff inhalation Q6H PRN (Reason: shortness of breath or wheezing) Qty: 8.5 0RF doxycycline hyclate 100 mg capsule 100 mg PO BID Qty: 20 0RF ursodiol 300 mg capsule 300 mg PO BID Qty: 180 1RF Xarelto DVT-PE Treat 30d Start 15 mg (42)- 20 mg (9) tablets,dose pack See Rx Instructions .ROUTE .COMPLEX Qty: 51 0RF Rx Instructions: take one-15 mg tablet twice daily for 21 days, then one-20 mg tablet once daily; must take with meal/food lidocaine [Lidoderm] 5 % adhesive patch,medicated 1 patch topical DAILY Qty: 15 0RF Rx Instructions: leave on most painful area for up to 12 hrs ondansetron 4 mg tablet,disintegrating 4 mg PO Q8H PRN PRN (Reason: Nausea) Qty: 10 0RF sucralfate [Carafate] 1 gram tablet 1 g PO TID PRN (Reason: abdominal pain) 7 Days Qty: 21 0RF albuterol sulfate 2.5 mg /3 mL (0.083 %) solution for nebulization 2.5 mg inhalation Q6H PRN (Reason: shortness of breath or wheezing) Qty: 90 1RF levothyroxine 137 mcg tablet 137 mcg PO DAILY Qty: 90 1RF (DME) compress.stocking,knee,reg,lrg Misc See Rx Instructions .MEDSUPPLY Qty: 2 1RF Rx Instructions: wear daily for venous insufficiency 20-30 mmHg Lupron Depot 3.75 mg syringe kit 3.75 mg IM QMONTH Qty: 1 12RF clopidogrel [Plavix] 75 mg tablet 75 mg PO DAILY Qty: 90 1RF amlodipine 5 mg tablet 5 mg PO DAILY Qty: 90 0RF dicyclomine 20 mg tablet 20 mg PO BID Qty: 60 0RF prochlorperazine maleate 10 mg tablet 10 mg PO BID PRN (Reason: for migraine) Qty: 30 0RF Primary Care Provider: Jose Alejandro London Referrals: Jose Alejandro London MD [Primary Care Provider] - Activity Restrictions/Additional Instructions: Please continue to follow-up with Dr. Enrique. If your symptoms persist or worsen please either return to the emergency room or call Dr. Enrique's office for repeat ultrasound in a week or 2. Do not have a blood clot in your leg today. Print Language: Jamaican Disposition Disposition: Home, Self Care
== END 2024-06-28 21:15 | disposition home or self-care (01) ==
PROVIDERS: Emergency Provider Emergency Medicine; PCP Internal Medicine; Visit Provider Emergency Medicine
DX: M79.651 Pain in right thigh (principal); J42 Unspecified chronic bronchitis; M54.9 Dorsalgia, unspecified; I10 Essential (primary) hypertension; G89.29 Other chronic pain; F17.210 Nicotine dependence, cigarettes, uncomplicated; Z86.718 Personal history of other venous thrombosis and embolism
CPT/HCPCS: 93971; 99282

== ENCOUNTER → 2024-07-01 | Outpatient (CLI) | payer MEDICAID, SELFPAY ==
--- NOTE | 2024-07-01 14:01 | VDLE_ITS ---
Reason For Study Reason For Study: Right leg swelling RIGHT LEFT GSV is normal. CFV is compressible, spontaneous, phasic, competent, Bright intraluminal echoes noted in CFV and prox FV and demonstrates normal augmentation. consistent with CHRONIC DVT. SFJ is PARTIALLY COMPRESSIBLE with intraluminal echoes noted. FV is compressible, spontaneous, phasic, competent and demonstrates normal augmentation. POP V is compressible, phasic, and INCOMPETENT for greater than 1.0 second. T/P Trunk is compressible. PTV is compressible. RT PerV is compressible. Procedure This is a venous duplex using B-mode, color flow and spectral Doppler. Exam performed in department. A preliminary report was called and/or faxed to Amrita RYAN. VL/Venous Duplex US, Unilateral Interpretation Summary Deep veins of the right lower extremity are patent and compressible segmentally . There is no evidence of right lower extremity deep vein thrombosis. Reflux noted in the right popliteal vein. Unchanged appearance of common femoral vein. Ordering Physician: Britany Nuñez Referring Physician: Jose Alejandro London Performed By: Angie Solomon RVT
== END | disposition home or self-care (01) ==
LOC: CVS 14:01
PROVIDERS: PCP Internal Medicine; Referring Provider Physician Assistant; Visit Provider Physician Assistant
DX: M79.89 Other specified soft tissue disorders (principal); M79.604 Pain in right leg
CPT/HCPCS: 93971

== ENCOUNTER 2024-07-25 09:35 | Emergency (ER) | payer MEDICAID, SELFPAY ==
[2024-07-25 09:37] VITALS: BP 140/90; PULSE 99; RESP 18; TEMP 36.1; O2SAT 100; BMI 39.4
--- NOTE | 2024-07-25 09:58 | VDLE_ITS ---
Reason For Study Reason For Study: Right leg pain RIGHT LEFT GSV is normal. CFV is compressible, spontaneous, phasic, competent, Bright intraluminal echoes noted in CFV and prox FV and demonstrates normal augmentation. consistent with CHRONIC DVT. SFJ is PARTIALLY COMPRESSIBLE with intraluminal echoes noted. FV is compressible, spontaneous, phasic, competent and demonstrates normal augmentation. POP V is compressible, phasic, and INCOMPETENT for greater than 1.0 second. T/P Trunk is compressible. PTV is compressible. RT PerV is compressible. Procedure This is a venous duplex using B-mode, color flow and spectral Doppler. Exam performed portable in ED. A preliminary report was called and/or faxed to Dr. Enamorado. VL/Venous Duplex US, Unilateral Interpretation Summary Deep veins of the right lower extremity are patent and compressible segmentally . There is no evidence of right lower extremity deep vein thrombosis. Reflux noted in the right popliteal vein. Unchanged appearance/wall thickening of the right common femoral vein. Unchanged chronic superficial vein thrombosis of right saphenofemoral junction Ordering Physician: Ry Enamorado Referring Physician: Jose Alejandro London Performed By: Angie Solomon RVT
--- NOTE | 2024-07-25 09:59 | RAD_ITS ---
PROCEDURE: CHEST PA AND LATERAL REASON FOR EXAM: Atypical chest pain. TECHNIQUE: Frontal and lateral views of the chest. COMPARISON: PA chest date 05/15/2024. RAD/Chest PA and Lateral IMPRESSION: Lungs appear clear of acute disease, and unchanged. A small area of scarring of the right costophrenic angle remains. No pleural effusion or pneumothorax is noted. The cardiomediastinal silhouette is within the normal range, and unchanged. Mild thoracic spine degenerative changes are noted. No acute osseous process is seen. Reading Location: [id number]
[2024-07-25 10:09] LABS: Hematocrit 42.5 % (37-47); Hemoglobin 14.3 g/dL (12.0-15.0); Mean Corp Hgb Conc 33.6 g/dL (32-36); Mean Corpuscular Hgb 28.5 pg (27.0-32.0); Mean Corpuscular Volume 84.7 fL (81-99); Mean Platelet Vol. 10.2 fl (6.2-12.0); Platelet Count 153 K/mm3 (150-450); RBC Distribution Width SD 39.8 fl (35.1-43.9); Red Blood Count 5.02 M/mm3 (4.2-5.4); White Blood Count 3.8 K/mm3 (4.4-11.0)
--- NOTE | 2024-07-25 10:11 | EDS_ITS ---
HPI History of Present Illness HPI Narrative: 39-year-old female prior history and has a chronic DVT in her right leg. Is on Plavix and aspirin. Is already had a vascular procedure in her right leg and has another one scheduled. Basically having discomfort in her right leg and some atypical chest discomfort. No prior pulmonary emboli. No hemoptysis. Chief Complaint: Lower Extremity Injury Informant: patient Occured/Mechanism Mechanism/Context: No injury and No blunt trauma Onset/Context/Timing Onset: Days Context: Gradual Onset Timing: Continuous Quality of Pain: Dull Current Severity: Mild Maximum Severity: Mild Associated Symptoms Associated Symptoms: Negative for Parasthesia or Weakness Narrative Narrative: 39-year-old female prior history of DVT with a history of a chronic DVT in her right leg with right leg discomfort and atypical chest discomfort. Is on Plavix and aspirin. Sees a vascular surgeon Dr. Dov Enrique. Prior similar symptoms: Yes Recent Illness/Hospitalization: No PFSH PFSH Medical History Hx of flexible sigmoidoscopy Wears glasses Heartburn Bronchitis History of edema Hx of fracture of arm Deep vein blood clot of right lower extremity DVT (deep venous thrombosis) Right foot sprain Right ankle sprain Breast pain, right Herniated nucleus pulposus, C4-5 Contact with or exposure to other viral diseases Dermatitis PONV (postoperative nausea and vomiting) Leg cramps Anxiety and depression Left shoulder pain Depression Chronic pain Cancer Arthritis Fatty liver Restless legs Back pain Injury of head and neck Syncope Fibromyalgia History of pain when walking Hypertension History of echocardiogram History of stress test Cardiology follow-up encounter Localized swelling, mass and lump, neck Cervical lymphadenopathy Heartburn Chronic RUQ pain Tinnitus Vertigo Ectopic cardiac beats Palpitations RUQ abdominal pain Cervical radiculopathy Chronic back pain Left-sided low back pain with left-sided sciatica Hypocalcemia Tobacco abuse Bronchitis Morbid obesity Post herpetic neuralgia NICOLÁS (generalized anxiety disorder) ADHD (attention deficit hyperactivity disorder), combined type Numbness and tingling of both upper extremities Numbness of both lower extremities Migraine without aura and with status migrainosus, not intractable PCOS (polycystic ovarian syndrome) History of gestational diabetes Almaz's thyroiditis History of acne Thyroid disease Home Medications ?Medication ?Instructions ?Recorded ?Last Taken ?Type ketoprofen 75 mg capsule 75 mg PO Q6H PRN Migraine Sy mptoms 11/01/23 Unknown Rx #100 caps albuterol sulfate 2.5 mg/3 mL 2.5 mg (3 mL) inhalation Q6H PRN 01/16/24 Unknown Rx (0.083 %) solution for nebulization shortness of breat h or wheezing #90 mL levothyroxine 137 mcg tablet 137 mcg PO DAILY synthroi d #90 tabs 02/09/24 05/01/24 Rx compress.stocking,knee,reg,lrg #2 ea 03/21/24 Unknown Rx leuprolide 3.75 mg intramuscular 3.75 mg IM QMONTH #1 ea 04/04/24 Unknown Rx syringe kit (Lupron Depot) clopidogrel 75 mg tablet (Plavix) 75 mg PO DAILY #90 t abs 05/01/24 Unknown Rx amlodipine 5 mg tablet 5 mg PO DAILY for blood pres sure 05/02/24 Unknown Rx #90 TABLETS albuterol sulfate 90 mcg/actuation 2 puff inhalation Q 6H PRN 05/03/24 Unknown Rx aerosol inhaler shortness of breath or wheez ing #8.5 grams ondansetron 4 mg disintegrating 4 mg PO Q8H PRN PRN Na usea #10 tabs 05/06/24 Unknown Rx tablet ursodiol 300 mg capsule 300 mg PO BID #180 caps 01/13 Unknown Rx prochlorperazine maleate 10 mg 10 mg PO BID PRN for mi graine #30 06/26/24 Unknown Rx tablet TABLETS aspirin 81 mg tablet,delayed 81 mg PO DAILY 07/08/24 U nknown History release (Adult Low Dose Aspirin) lidocaine 5 % topical patch 1 patch topical DAILY PRN pain 07/08/24 Unknown History (Lidoderm) (scale score 1-3) oxycodone-acetaminophen 5 mg-325 1 tab PO Q6H PRN PRN pain 07/08/24 Unknown History mg tablet Diltiazem 10mg/Lidocaine 50mg 1 supp GA .PRN PRN hemor rhoids #30 07/16/24 Unknown Rx Suppository 30 supp suppository supp Allergy/AdvReac Type Severity Reaction Status Date / Time latex Allergy Itching Verified 07/25/24 09:37 naproxen Allergy Unknown Verified 07/25/24 09:37 Penicillins (PCN) Allergy Rash Verified 07/25/24 09:37 escitalopram (From Lexapro) AdvReac Intermediate Lightheaded Verified 07/25/24 09:37 sertraline (From Zoloft) AdvReac Intermediate Dizzy & Verified 07/25/24 09:37 Headache NSAIDS (Non-Steroidal AdvReac Mild Other Verified 07/25/24 09:37 Anti-Inflamma hydrocodone (From Vicodin) AdvReac Other Verified 07/25/24 09:37 ketorolac (From Toradol) AdvReac Other Verified 07/25/24 09:37 Family History Grandmother Diabetes Hypertension Hypercholesterolemia Thyroid disorder Mother Family history of skin cancer Other High cholesterol Surgical History History of carpal tunnel surgery of right wrist History of surgery on lower extremity Status post incision and drainage (~04/15/22) History of total vaginal hysterectomy (TVH) (~03/22/22) History of thyroidectomy Social History Smoking Status: Current every day smoker tobacco type: cigarettes Tobacco: How many years used: 13 Electronic Cigarette Use: not used second hand exposure: No alcohol intake: current alcohol intake frequency: holidays/special occasions on ly substance use type: does not use caffeine: Yes what type of physical activity do you participate in: none seatbelt use: always do you feel safe at home: Yes additional social history: emmy [place] ROS ED ROS Narrative Atypical chest discomfort or right leg discomfort. No hemoptysis. Constitutional Constitutional ED: Denies chills or fever(s) Eyes Eyes: Denies blurry vision ENT ENT ED: Denies ear pain Cardiovascular Cardiovascular: Denies chest pain Respiratory/Chest Respiratory/Chest: Denies cough or dyspnea Gastrointestinal Gastrointestinal: Denies abdominal pain Genitourinary Genitourinary ED: Denies dysuria or hematuria Musculoskeletal Musculoskeletal: Denies arthralgias Integumentary Denies abscess Neurologic Neurologic: Denies headache(s) Psychiatric Psychiatric: Reports anxiety; Denies depression Endocrine Endocrinology: Denies polydipsia Hematologic/Lymphatic Hematologic/Lymphatic: Reports easy bleeding; Denies easy bruising or lymphadenopathy Allergic/Immunologic Allergic/Immunologic ED: Denies mouth swelling, tongue swelling or urticaria EXAM Physical Exam Narrative Exam Narrative: Well-appearing 39-year-old female. Vital signs are stable afebrile. Pulse ox 100% on room air no hypoxia. HEENT exam pupils round reactive light. No facial droop. Moist mucous membranes. Neck nontender no JVD. No lymphadenopathy. Lungs clear to auscultation bilaterally. Heart regular rhythm no murmur. Abdomen soft nontender. Moving all 4 extremities. She has mild tenderness to the right medial thigh. There is no ecchymosis or bruising. She has some mild varicose veins. No cellulitis. Calf is nontender. Both lower extremities are neurovascularly intact. There is no significant edema. Neurologically she is awake and alert no focal motor deficits. Const Vital Signs: 07/25/24 09:37 07/25/24 09:44 07/25/24 11:35 Temperature 96.9 F L Temperature Source Temporal Pulse Rate 99 78 Respiratory Rate 18 20 H Respiratory Effort Normal Non-Labored Blood Pressure 140/90 H 90/66 Blood Pressure Mean 106 74 Pulse Ox 100 98 Oxygen Delivery Method Room Air Room Air Positive well nourished and well developed; Negative for cachectic, contractures or unkempt General Appearance ED: well developed and NAD; Negative for unkempt, cachectic or contractures Nutritional Appearance: Negative for cachectic HEENT Reports moist mucous membranes normocephalic and atraumatic Neck full ROM and supple Chest Wall inspection of chest normal and palpation of chest normal Resp normal respiratory effort, no retractions and clear to auscultation bilaterally Cardio regular rate, regular rhythm, S1 normal heart sound, S2 normal heart sound and no murmurs GI non-tender, non-distended and no masses Auscultation: normoactive bowel sounds Palpation: soft; Negative for tender or guarding Back/Spine no CVA tenderness General Back: Negative for CVA tenderness Cervical Spine: Negative for cervical spine tenderness Thoracic Spine / Upper Back: Negative for thoracic spinal tenderness Lumbar Spine / Lower Back: Negative for lumbar spinal tenderness Extremity normal to inspection and full ROM Extremity Narrative: Mild varicose veins right medial thigh. Mild tenderness. General Extremety ED: Negative for cyanosis, edema or weight-bearing difficulty General Extremity: Negative for cyanosis, edema or weight-bearing difficulty Neuro oriented x3, CN's II-XII intact bilaterally and moves all extremities Sensorium / Orientation: alert, oriented to person, oriented to place and oriented to time; Negative for orientation impaired, confused, lethargic or stuporous Motor Exam: strength 5/5 throughout Psych mental status grossly normal Appearance: Negative for unkempt Mood & Affect: anxious Skin no wounds Lesions: no lesions Rashes: no rashes MDM MDM MDM Narrative Medical decision making narrative: 39-year-old female right leg discomfort with prior history of DVT ultrasound being obtained. He is in atypical noncardiac sounding chest pain show screening labs EKG and chest the D-dimer is elevated and I might have to do a CTA but she has had this before in the past that have been negative. She has had multiple prior ultrasounds showing a chronic DVT in her right leg. Repeat exam patient is doing well at 1:09 PM. We went over her test results which were unremarkable. Negative D-dimer. Ultrasound of her leg showed a chronic clot but nothing acute. I do not think she needs any further evaluation she is comfortable being discharged to home. History & Record Review Discussion w/independent historian: Patient Lab Data Attestation: I reviewed the patient's lab results. Lab results narrative: CBC shows a white count of 3.8. H&H 14 and 42. Platelets 153. D-dimer ankle 0.27. Normal. Chemistries show a gap 9. Normal BUN of 10 and creatinine 0.75. Glucose 113. Chest x-ray chronic changes no acute Labs: Laboratory Results - last 24 hr 07/25/24 10:04 WBC 3.8 L RBC 5.02 Hgb 14.3 Hct 42.5 MCV 84.7 MCH 28.5 MCHC 33.6 RDW Std Deviation 39.8 RDW Coeff of Mikel 13.0 Plt Count 153 MPV 10.2 D-Dimer Quant (PE/DVT) 0.27 Sodium 137 Potassium 4.0 Chloride 104 Carbon Dioxide 23.8 Anion Gap 9 BUN 10 Creatinine 0.75 Estim Creat Clear Calc 129.64 Est GFR (MDRD) Non-Af 105 BUN/Creatinine Ratio 13.3 Glucose 113 H Calcium 9.3 Radiography Chest X-Ray - ED: 2 View, Read by ED Physician, Read by Radiologist, Normal, Heart, Lungs, Mediastinum, Bony Structures, No Acute Disease and Chronic Changes Diagnostic Testing: Clinical Impression(s) from Imaging Studies Chest X-Ray 03/06/25 09:59 IMPRESSION: Lungs appear clear of acute disease, and unchanged. A small area of scarring of the right costophrenic angle remains. No pleural effusion or pneumothorax is noted. The cardiomediastinal silhouette is within the normal range, and unchanged. Mild thoracic spine degenerative changes are noted. No acute osseous process is seen. Reading Location: [address] Chest x-ray, 2 views, AP and lateral, interpreted by by myself and radiologist. Shows no acute process. Normal cardiac silhouette. Normal lungs. Chronic changes. Rhythm Strip Rhythm Strip: Sinus Rhythm Rate: 79 Ectopy: None EKG Initial EKG: Attestation: I personally reviewed and interpreted this EKG as follows: Interpretation: Sinus Rhythm and No Acute Injury Pattern Comments: Normal sinus rhythm rate of 81-year-old signs of WA or ischemia. Discharge Plan Triage Chief Complaint: Lower Extremity Injury Other Complaint: Chest Pain ED Provider: Ry Enamorado Dx/Rx/DC Orders Clinical Impression: Acute leg pain, History of deep vein thrombosis, Atypical chest pain Instructions: ED Chest Pain, Uncertain Cause Prescriptions: No Action ketoprofen 75 mg capsule 75 mg PO Q6H PRN (Reason: Migraine Symptoms) Qty: 100 1RF Rx Instructions: 1 cap PO at on set of headache max of 3 in 24 hours, max 20 per month albuterol sulfate 90 mcg/actuation HFA aerosol inhaler 2 puff inhalation Q6H PRN (Reason: shortness of breath or wheezing) Qty: 8.5 0RF ursodiol 300 mg capsule 300 mg PO BID Qty: 180 1RF oxycodone-acetaminophen 5-325 mg tablet 1 tab PO Q6H PRN PRN (Reason: pain) aspirin [Adult Low Dose Aspirin] 81 mg tablet,delayed release (DR/EC) 81 mg PO DAILY lidocaine [Lidoderm] 5 % adhesive patch,medicated 1 patch topical DAILY PRN (Reason: pain (scale score 1-3)) Rx Instructions: leave on most painful area for up to 12 hrs ondansetron 4 mg tablet,disintegrating 4 mg PO Q8H PRN PRN (Reason: Nausea) Qty: 10 0RF albuterol sulfate 2.5 mg /3 mL (0.083 %) solution for nebulization 2.5 mg inhalation Q6H PRN (Reason: shortness of breath or wheezing) Qty: 90 1RF levothyroxine 137 mcg tablet 137 mcg PO DAILY Qty: 90 1RF (DME) compress.stocking,knee,reg,lrg Misc See Rx Instructions .MEDSUPPLY Qty: 2 1RF Rx Instructions: wear daily for venous insufficiency 20-30 mmHg Lupron Depot 3.75 mg syringe kit 3.75 mg IM QMONTH Qty: 1 12RF clopidogrel [Plavix] 75 mg tablet 75 mg PO DAILY Qty: 90 1RF amlodipine 5 mg tablet 5 mg PO DAILY Qty: 90 0RF prochlorperazine maleate 10 mg tablet 10 mg PO BID PRN (Reason: for migraine) Qty: 30 0RF Diltiazem 10mg/Lidocaine 50mg Suppository 30 supp suppository 1 supp GA .PRN PRN (Reason: hemorrhoids) Qty: 30 1RF Rx Instructions: diltiazem HCl (bulk) powder 300 mg; lidocaine (bulk) powder 1500 mg; Per 30 supp Insert supposititory once daily PRN for hemorrhoids Primary Care Provider: Jose Alejandro London Referrals: Jose Alejandro London MD [Primary Care Provider] - As Needed Activity Restrictions/Additional Instructions: All your tests look good. Normal blood work. Normal D-dimer. Normal chest x- ray and ultrasound showing no acute clot. Follow-up with your doctors as needed. Print Language: Zambian Disposition Disposition: Home, Self Care
[2024-07-25 10:33] LABS: D-Dimer Quantitative (DVT/PE) 0.27 FEU/ug/m (0.27-0.49)
[2024-07-25 10:34] LABS: Anion Gap 9 (5-15); BUN 10 mg/dL (4-19); BUN/Creat Ratio 13.3 RATIO (10-20); Calcium,Total 9.3 mg/dL (7.6-11.0); Carbon Dioxide 23.8 mmol/L (21.0-32.0); Chloride 104 mmol/L (98-108); Creatinine, Serum 0.75 mg/dL (0.70-1.20); EST Glomerular Filtration Rate 105 (>60); Estimated Creatinine Clearance 129.64 ml/min (50-250); Glucose 113 mg/dL (70-99); Sodium Level 137 mmol/L (133-145)
[2024-07-25 11:35] VITALS: BP 90/66; PULSE 78; RESP 20; O2SAT 98
[2024-07-25 13:00] VITALS: BP 121/74; PULSE 84; RESP 17; O2SAT 100
[2024-07-25 13:13] VITALS: BP 121/74; PULSE 84; RESP 17; TEMP 36.8; O2SAT 100
== END 2024-07-25 13:18 | disposition home or self-care (01) ==
PROVIDERS: Emergency Provider Emergency Medicine; PCP Internal Medicine; Visit Provider Emergency Medicine
DX: M79.604 Pain in right leg (principal); R07.89 Other chest pain; I10 Essential (primary) hypertension; M54.9 Dorsalgia, unspecified; G89.29 Other chronic pain; F17.210 Nicotine dependence, cigarettes, uncomplicated; Z79.82 Long term (current) use of aspirin; Z79.02 Long term (current) use of antithrombotics/antiplatelets; Z79.899 Other long term (current) drug therapy; Z86.718 Personal history of other venous thrombosis and embolism
CPT/HCPCS: 71046; 80048; 85027; 85379; 93005; 93971; 99285; A4216

== ENCOUNTER → 2024-08-21 | Outpatient (CLI) | payer MEDICAID, SELFPAY ==
--- NOTE | 2024-08-21 13:56 | VDLE_ITS ---
Reason For Study Reason For Study: Pain RIGHT LEFT GSV is normal. CFV is compressible, spontaneous, phasic, competent, Bright intraluminal echoes noted in CFV and prox FV and demonstrates normal augmentation. consistent with CHRONIC DVT. SFJ is PARTIALLY COMPRESSIBLE with intraluminal echoes noted. FV is compressible, spontaneous, phasic, competent and demonstrates normal augmentation. POP V is compressible, phasic, and INCOMPETENT for greater than 1.0 second. T/P Trunk is compressible. PTV is compressible. RT PerV is compressible. Procedure This is a venous duplex using B-mode, color flow and spectral Doppler. Exam performed in department. A preliminary report was called and/or faxed to [facility]. VL/Venous Duplex US, Unilateral Interpretation Summary Deep veins of the right lower extremity are patent and compressible segmentally . There is no evidence of right lower extremity deep vein thrombosis. Reflux noted in the right popliteal vein. Unchanged appearance/wall thickening of the right common femoral vein. Unchanged chronic superficial vein thrombosis of right saphenofemoral junction Ordering Physician: Britany Nuñez Referring Physician: Jose Alejandro London Performed By: Margaret Garner, RVT
== END | disposition home or self-care (01) ==
LOC: CVS 13:55
PROVIDERS: PCP Internal Medicine; Referring Provider Physician Assistant; Visit Provider Physician Assistant
DX: M79.604 Pain in right leg (principal); M79.89 Other specified soft tissue disorders; Z86.718 Personal history of other venous thrombosis and embolism
CPT/HCPCS: 93971

== ENCOUNTER 2024-08-27 07:02 | Day surgery (SDC) | payer MEDICAID, SELFPAY ==
--- NOTE | 2024-07-08 14:16 | PAT.ANE_ITS ---
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 When Was Last Pacemaker Check QUESTION #4 FULL TEXT: You/Your Family Experience fever (hyperthermia) with Anesthesia Last Oral Intake Last Oral intake: Last Oral Intake NPO since Meds taken in AM with sips of water? Meds patient instructed to take am of surgery PONV PONV - oil and gas field technician: PONV - oil and gas field technician Female Yes 07/08/24 13:04 HX of Motion Sickness Yes 07/08/24 13:04 HX of N/V After Surgery No 07/08/24 13:04 Non-Smoker No 07/08/24 13:04 Duration of Surgery greater Yes 07/08/24 13:04 than 60 minutes Number of Risk Factors 3 07/08/24 13:04 PONV Score Moderate Risk 07/08/24 13:04 Height & Weight Height & Weight: Anesthesia: Height & Weight Height 5 ft 6 in 05/29/24 12:34 Respiratory Assessment Respiratory Assessment - oil and gas field technician: Respiratory Tract Infection Hx - oil and gas field technician Hx Respiratory Tract Infection No 07/08/24 13:04 STOP Sleep Apnea STOP Sleep Apnea - oil and gas field technician: STOP Sleep Apnea - oil and gas field technician Hx Hypertension Yes: CONTROLLED WITH MED 07/08/24 13:04 Hx Sleep Apnea No 07/08/24 13:04 CPAP BIPAP Do you snore loudly (louder Yes 07/08/24 13:04 than talking or can be heard Do you often feel tired/ No 07/08/24 13:04 fatigued/ sleepy during daytime? Has anyone observed you stop No 07/08/24 13:04 breathing during sleep? STOP Results Positive 07/08/24 13:04 QUESTION #5 FULL TEXT : Do you snore loudly (louder than talking or can be heard through closed doors)? Tobacco Use History Tobacco Use History - oil and gas field technician: Tobacco Use History - oil and gas field technician Tobacco Use Smoking Status Current every day smoker 07/08/24 13:04 Hx Tobacco Use Yes 07/08/24 13:04 Years Smoking Packs Smoked per Day Smoking Cessation Date was within the last 15 years Hx Smoking Cessation Date Hx Smoking Cessation No 07/08/24 13:04 Counseling Hematologic Medial History Hematologic Hx - oil and gas field technician: Hematologic Medical Hx - parts and service manager Hx of Blood Transfusion Yes 07/08/24 13:04 Hx of Transfusion in last 3 No 07/08/24 13:04 Months Date of Last Transfusion (if within last 3 months) Ever experience any problems No 07/08/24 13:04 with transfusion(s)? Specify any problems Hx of Preganancy in last 3 No 07/08/24 13:04 Months Nurse Filling Out Transfusion DSCHRIBER 07/08/24 13:04 & Questions: Date: 07/08/24 07/08/24 13:04 Time: 13:05 07/08/24 13:04 Patient unable to answer at this time (ie. confused, unrespo /Reproduction History /Reproductive History - oil and gas field technician: /Reproductive Hx- oil and gas field technician Hx Now No 07/08/24 13:04 Gestational Age (in weeks): EDC: Hx Hx Para Hx Section SAB No 07/08/24 13:04 PFSH Medical History (Updated 07/08/24 @ 13:06 by Ruby Bee) Hx of flexible sigmoidoscopy Wears glasses Heartburn Bronchitis History of edema Hx of fracture of arm Deep vein blood clot of right lower extremity DVT (deep venous thrombosis) Right foot sprain Right ankle sprain Breast pain, right Herniated nucleus pulposus, C4-5 Contact with or exposure to other viral diseases Dermatitis PONV (postoperative nausea and vomiting) Leg cramps Anxiety and depression Left shoulder pain Depression Chronic pain Cancer Arthritis Fatty liver Restless legs Back pain Injury of head and neck Syncope Fibromyalgia History of pain when walking Hypertension History of echocardiogram History of stress test Cardiology follow-up encounter Localized swelling, mass and lump, neck Cervical lymphadenopathy Heartburn Chronic RUQ pain Tinnitus Vertigo Ectopic cardiac beats Palpitations RUQ abdominal pain Cervical radiculopathy Chronic back pain Left-sided low back pain with left-sided sciatica Hypocalcemia Tobacco abuse Bronchitis Morbid obesity Post herpetic neuralgia NICOLÁS (generalized anxiety disorder) ADHD (attention deficit hyperactivity disorder), combined type Numbness and tingling of both upper extremities Numbness of both lower extremities Migraine without aura and with status migrainosus, not intractable PCOS (polycystic ovarian syndrome) History of gestational diabetes Almaz's thyroiditis History of acne Thyroid disease Home Medications ?Medication ?Instructions ?Recorded ?Last Taken ?Type ketoprofen 75 mg capsule 75 mg PO Q6H PRN Migraine Sy mptoms 11/01/23 Unknown Rx #100 caps albuterol sulfate 2.5 mg/3 mL 2.5 mg (3 mL) inhalation Q6H PRN 01/16/24 Unknown Rx (0.083 %) solution for nebulization shortness of breat h or wheezing #90 mL levothyroxine 137 mcg tablet 137 mcg PO DAILY synthroi d #90 tabs 02/09/24 05/01/24 Rx compress.stocking,knee,reg,lrg #2 ea 03/21/24 Unknown Rx leuprolide 3.75 mg intramuscular 3.75 mg IM QMONTH #1 ea 04/04/24 Unknown Rx syringe kit (Lupron Depot) clopidogrel 75 mg tablet (Plavix) 75 mg PO DAILY #90 t abs 05/01/24 Unknown Rx amlodipine 5 mg tablet 5 mg PO DAILY for blood pres sure 05/02/24 Unknown Rx #90 TABLETS albuterol sulfate 90 mcg/actuation 2 puff inhalation Q 6H PRN 05/03/24 Unknown Rx aerosol inhaler shortness of breath or wheez ing #8.5 grams ondansetron 4 mg disintegrating 4 mg PO Q8H PRN PRN Na usea #10 tabs 05/06/24 Unknown Rx tablet ursodiol 300 mg capsule 300 mg PO BID #180 caps 01/13 Unknown Rx prochlorperazine maleate 10 mg 10 mg PO BID PRN for mi graine #30 06/26/24 Unknown Rx tablet TABLETS aspirin 81 mg tablet,delayed 81 mg PO DAILY 07/08/24 U nknown History release (Adult Low Dose Aspirin) lidocaine 5 % topical patch 1 patch topical DAILY PRN pain 07/08/24 Unknown History (Lidoderm) (scale score 1-3) oxycodone-acetaminophen 5 mg-325 1 tab PO Q6H PRN PRN pain 07/08/24 Unknown History mg tablet Allergy/AdvReac Type Severity Reaction Status Date / Time latex Allergy Itching Verified 07/08/24 12:36 naproxen Allergy Unknown Verified 07/08/24 12:36 Penicillins (PCN) Allergy Rash Verified 07/08/24 12:36 escitalopram (From Lexapro) AdvReac Intermediate Lightheaded Verified 07/08/24 12:36 sertraline (From Zoloft) AdvReac Intermediate Dizzy & Verified 07/08/24 12:36 Headache NSAIDS (Non-Steroidal AdvReac Mild Other Verified 07/08/24 12:36 Anti-Inflamma hydrocodone (From Vicodin) AdvReac Other Verified 07/08/24 12:36 ketorolac (From Toradol) AdvReac Other Verified 07/08/24 12:36 Family History Grandmother Diabetes Hypertension Hypercholesterolemia Thyroid disorder Mother Family history of skin cancer Other High cholesterol Surgical History (Updated 07/08/24 @ 12:55 by Ruby Bee) History of carpal tunnel surgery of right wrist History of surgery on lower extremity Status post incision and drainage (~04/15/22) History of total vaginal hysterectomy (TVH) (~03/22/22) History of thyroidectomy Social History Smoking Status: Current every day smoker tobacco type: cigarettes Tobacco: How many years used: 13 Electronic Cigarette Use: not used second hand exposure: No alcohol intake: current alcohol intake frequency: holidays/special occasions only substance use type: does not use caffeine: Yes what type of physical activity do you participate in: none seatbelt use: always do you feel safe at home: Yes additional social history: emmy Audit: Pertinent Findings Pertinent Findings EKG Perinent findings: 04/23/2024 normal sinus rhythm at 73 bpm normal EKG Consult pertinent findings: Cardiology 11/18/2021 for palpitations and chest pain workup negative placed on Norvasc for essential hypertension Recommendation Anesthesia Recommendation Anesthesia recommendation: OPTIMIZED for anesthesia
[2024-08-27] VITALS (11 sets, daily range): BP systolic 101–128; BP diastolic 59–82; PULSE 62–97; RESP 16–18; TEMP 36.3–37.4; O2SAT 98–100; BMI 39.1
[2024-08-27] MEDS: 0.9% Normal Saline (1000mL) 1,000 ML 15 ML IV (07:47)
[2024-08-27] MEDS: Vancomycin HCl 1,750 MG in 0.9% Normal Saline (500mL Bag) 500 ML 250 MG IV (07:47)
--- NOTE | 2024-08-27 08:16 | PCM.PRE.AN2 ---
ASA Classification* ASA Classification ASA Classification: 3 Assessment & Plan Anesthesia* Anesthesia Assessment Anesthesia Assessment: Discussed sedation and/or anesthesia options, risks, benefits, and alternatives with patient/parents/legal guardian/POA. Questions invited. The patient/parents/legal guardian/POA seems to understand and agrees to proceed with anesthesia plan. Reviewed the physical assessment, medical history, allergy history and patient home medications list prior to surgery/procedure/anesthetic and documented any changes. Performed airway and anesthesia risk assessments. Anesthesia Type Anesthesia Type: General History Source History Obtained from:: Patient and Chart Anesthesia Focused Assessment* Temperature: 98.6 F Pulse Rate: 78 Blood Pressure: 105/82 Respiratory Rate: 16 Pulse Ox: 100 Oxygen Delivery Method: Room Air Airway Assessment Mouth opens: >3 cm Mallampati Score: I Teeth Condition: Caps/Crowns (Patient has a crown. A couple temporary fillings.) and Missing (Patient is missing tooth. Rest are tight.) Neck Range of motion (ROM): Full ROM Focused Labs Anesthesia Preop lab: CBC WBC 3.8 K/mm3 (4.4-11.0) L 07/25/24 10:04 07/25/24 RBC 5.02 M/mm3 (4.2-5.4) 07/25/24 10:04 07/25/24 Hgb 14.3 g/dL (12.0-15.0) 07/25/24 10:04 07/25/24 Hct 42.5 % (37-47) 07/25/24 10:04 07/25/24 Plt Count 153 K/mm3 (150-450) 07/25/24 10:04 07/25/24 CHEMISTRY Potassium 4.0 mmol/L (3.3-5.1) 07/25/24 10:04 07/25/24 Sodium 137 mmol/L (133-145) 07/25/24 10:04 07/25/24 Magnesium 1.9 mg/dL (1.6-2.6) 02/06/24 11:35 02/06/24 Phosphorus 3.7 mg/dL (2.5-4.9) 02/11/17 18:05 02/11/17 BUN 10 mg/dL (4-19) 07/25/24 10:04 07/25/24 Creatinine 0.75 mg/dL (0.70-1.20) 07/25/24 10:04 07/25/24 Glucose 113 mg/dL (70-99) H 07/25/24 10:04 07/25/24 POC Glucose 146 mg/dL (74-106) H 04/15/22 11:43 04/15/22 TSH 1.230 uIU/mL (0.358-3.740) 02/06/24 11:35 02/06/24 COAG PT 12.7 SECONDS (11.7-14.9) 04/23/24 18:50 04/23/24 Urine Test Negative Negative 06/18/24 11:53 06/18/24 Tst Clinic Negative 03/12/20 08:32 03/12/20 Pre-Assessment Diagnosis/Proposed Procedure Planned Operative Procedure(s): RIGHT SAPHFEMORAL LIGATION AND GSV CHEMICAL ABLATION Anesthesia History 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 When Was Last Pacemaker Check QUESTION #4 FULL TEXT: You/Your Family Experience fever (hyperthermia) with Anesthesia Last Oral Intake Last Oral intake: Last Oral Intake NPO since 23:30 08/27/24 07:33 Meds taken in AM with sips of water? Meds patient instructed to take am of surgery Any additional information?: Yes Meds taken in AM with sips of water?: Yes PONV PONV - beauty operator apprentice: PONV - beauty operator apprentice Female Yes 08/15/24 09:22 HX of Motion Sickness Yes 08/15/24 09:22 HX of N/V After Surgery Yes 08/15/24 09:22 Non-Smoker No 08/15/24 09:22 Duration of Surgery greater Yes 08/15/24 09:22 than 60 minutes Number of Risk Factors 4 08/15/24 09:22 PONV Score Severe Risk 08/15/24 09:22 Height & Weight Height & Weight: Anesthesia: Height & Weight Height 5 ft 6 in 08/27/24 07:33 Weight: 110 kg 08/27/24 07:33 Body Mass Index (BMI) 39.1 08/27/24 07:33 Respiratory Assessment Respiratory Assessment - beauty operator apprentice: Respiratory Tract Infection Hx - beauty operator apprentice Hx Respiratory Tract Infection Yes: HEAD COLD/NO FEVERS 08/15/24 09:22 STOP Sleep Apnea STOP Sleep Apnea - beauty operator apprentice: STOP Sleep Apnea - beauty operator apprentice Hx Hypertension Yes: CONTROLLED WITH MED 08/15/24 09:22 Hx Sleep Apnea No 08/15/24 09:22 CPAP BIPAP Do you snore loudly (louder Yes 08/15/24 09:22 than talking or can be heard Do you often feel tired/ No 08/15/24 09:22 fatigued/ sleepy during daytime? Has anyone observed you stop No 08/15/24 09:22 breathing during sleep? STOP Results Positive 08/15/24 09:22 QUESTION #5 FULL TEXT : Do you snore loudly (louder than talking or can be heard through closed doors)? 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 Specify any problems Hx of Preganancy in last 3 No 08/15/24 09:22 Months Nurse Filling Out Transfusion DSCHRIBER 08/15/24 09:22 & Questions: Date: 08/15/24 08/15/24 09:22 Time: 09:22 08/15/24 09:22 Patient unable to answer at this time (ie. confused, unrespo /Reproduction History /Reproductive History - beauty operator apprentice: /Reproductive Hx- beauty operator apprentice Hx Now No 08/15/24 09:22 Gestational Age (in weeks): EDC: Hx Hx Para Hx Section SAB No 08/15/24 09:22 Active Medications Active Medications: Current Medications Generic Name Dose Route Start Last Admin Trade Name Freq PRN Reason Stop Dose Admin Vancomycin HCl 1,750 mg/ 535 mls @ 250 mls/hr 08/27/24 08:00 08/27/24 07:47 Sodium Chloride IV 08/27/24 10:08 250 mls/hr PREOP ONE Administration Sodium Chloride 1,000 mls @ 15 mls/hr 08/27/24 07:15 08/27/24 07:47 IV 15 mls/hr .Q48H RICHA Administration PFSH Medical History Chronic back pain Hx of flexible sigmoidoscopy Wears glasses Heartburn Bronchitis History of edema Hx of fracture of arm Deep vein blood clot of right lower extremity DVT (deep venous thrombosis) Right foot sprain Right ankle sprain Breast pain, right Herniated nucleus pulposus, C4-5 Contact with or exposure to other viral diseases Dermatitis PONV (postoperative nausea and vomiting) Leg cramps Anxiety and depression Left shoulder pain Depression Chronic pain Cancer Arthritis Fatty liver Restless legs Back pain Injury of head and neck Syncope Fibromyalgia History of pain when walking Hypertension History of echocardiogram History of stress test Cardiology follow-up encounter Localized swelling, mass and lump, neck Cervical lymphadenopathy Heartburn Chronic RUQ pain Tinnitus Vertigo Ectopic cardiac beats Palpitations RUQ abdominal pain Cervical radiculopathy Left-sided low back pain with left-sided sciatica Hypocalcemia Tobacco abuse Bronchitis Morbid obesity Post herpetic neuralgia NICOLÁS (generalized anxiety disorder) ADHD (attention deficit hyperactivity disorder), combined type Numbness and tingling of both upper extremities Numbness of both lower extremities Migraine without aura and with status migrainosus, not intractable PCOS (polycystic ovarian syndrome) History of gestational diabetes Almaz's thyroiditis History of acne Thyroid disease Home Medications ?Medication ?Instructions ?Recorded ?Last Taken ?Type ketoprofen 75 mg capsule 75 mg PO Q6H PRN Migraine Symptoms 06/12/24 Unknown Rx #100 caps albuterol sulfate 2.5 mg/3 mL 2.5 mg (3 mL) inhalation Q6H PRN 01/16/24 Unknown Rx (0.083 %) solution for nebulization shortness of breath or wheezing #90 mL compress.stocking,knee,reg,lrg #2 ea 03/21/24 Unknown Rx clopidogrel 75 mg tablet (Plavix) 75 mg PO DAILY #90 tabs 05/01/24 08/26/24 Rx albuterol sulfate 90 mcg/actuation 2 puff inhalation Q6H PRN 05/03/24 Unknown Rx aerosol inhaler shortness of breath or wheezing #8.5 grams ondansetron 4 mg disintegrating 4 mg PO Q8H PRN PRN Nausea #10 tabs 05/06/24 Unknown Rx tablet ursodiol 300 mg capsule 300 mg PO BID #180 caps 05/29/24 Unknown Rx prochlorperazine maleate 10 mg 10 mg PO BID PRN for migraine #30 06/26/24 Unknown Rx tablet TABLETS aspirin 81 mg tablet,delayed 81 mg PO DAILY 07/08/24 08/26/24 History release (Adult Low Dose Aspirin) oxycodone-acetaminophen 5 mg-325 1 tab PO Q6H PRN PRN pain 07/08/24 Unknown History mg tablet amlodipine 5 mg tablet 5 mg PO DAILY for blood pressure 07/31/24 08/26/24 Rx #90 TABLETS levothyroxine 137 mcg tablet 137 mcg PO DAILY synthroid #90 tabs 07/31/24 08/27/24 06:00 Rx Allergy/AdvReac Type Severity Reaction Status Date / Time latex Allergy Itching Verified 08/27/24 07:31 naproxen Allergy Unknown Verified 08/27/24 07:31 Penicillins (PCN) Allergy Rash Verified 08/27/24 07:31 escitalopram (From Lexapro) AdvReac Intermediate Lightheaded Verified 08/27/24 07:31 sertraline (From Zoloft) AdvReac Intermediate Dizzy & Verified 08/27/24 07:31 Headache NSAIDS (Non-Steroidal AdvReac Mild Other Verified 08/27/24 07:31 Anti-Inflamma hydrocodone (From Vicodin) AdvReac Other Verified 08/27/24 07:31 ketorolac (From Toradol) AdvReac Other Verified 08/27/24 07:31 Family History Grandmother Diabetes Hypertension Hypercholesterolemia Thyroid disorder Mother Family history of skin cancer Other High cholesterol Surgical History History of carpal tunnel surgery of right wrist History of surgery on lower extremity Status post incision and drainage (~04/15/22) History of total vaginal hysterectomy (TVH) (~03/22/22) History of thyroidectomy Social History Smoking Status: Current every day smoker tobacco type: cigarettes Tobacco: How many years used: 13 Electronic Cigarette Use: not used second hand exposure: No alcohol intake: current alcohol intake frequency: holidays/special occasions only substance use type: does not use caffeine: Yes what type of physical activity do you participate in: none seatbelt use: always do you feel safe at home: Yes additional social history: emmy Review of Systems (Anesthesia) ROS Narrative System reviewed and no additional complaints, except as documented.
--- NOTE | 2024-08-27 08:54 | HP.PCM_ITS ---
HPI - General HPI Narrative AUSTIN RIVERA, is a 39 F who presents with right lower extremity painful varicose veins, skin pigment deposition at medial ankle, prior DVT and SVT. She has reflux throughout the GSV including the SFJ which is also dilated. She presents for chemical ablation, SFJ ligation. [facility] Medical History Chronic back pain Hx of flexible sigmoidoscopy Wears glasses Heartburn Bronchitis History of edema Hx of fracture of arm Deep vein blood clot of right lower extremity DVT (deep venous thrombosis) Right foot sprain Right ankle sprain Breast pain, right Herniated nucleus pulposus, C4-5 Contact with or exposure to other viral diseases Dermatitis PONV (postoperative nausea and vomiting) Leg cramps Anxiety and depression Left shoulder pain Depression Chronic pain Cancer Arthritis Fatty liver Restless legs Back pain Injury of head and neck Syncope Fibromyalgia History of pain when walking Hypertension History of echocardiogram History of stress test Cardiology follow-up encounter Localized swelling, mass and lump, neck Cervical lymphadenopathy Heartburn Chronic RUQ pain Tinnitus Vertigo Ectopic cardiac beats Palpitations RUQ abdominal pain Cervical radiculopathy Left-sided low back pain with left-sided sciatica Hypocalcemia Tobacco abuse Bronchitis Morbid obesity Post herpetic neuralgia NICOLÁS (generalized anxiety disorder) ADHD (attention deficit hyperactivity disorder), combined type Numbness and tingling of both upper extremities Numbness of both lower extremities Migraine without aura and with status migrainosus, not intractable PCOS (polycystic ovarian syndrome) History of gestational diabetes Almaz's thyroiditis History of acne Thyroid disease Home Medications ?Medication ?Instructions ?Recorded ?Last Taken ?Type ketoprofen 75 mg capsule 75 mg PO Q6H PRN Migraine Sy mptoms 11/01/23 Unknown Rx #100 caps albuterol sulfate 2.5 mg/3 mL 2.5 mg (3 mL) inhalation Q6H PRN 01/16/24 Unknown Rx (0.083 %) solution for nebulization shortness of breat h or wheezing #90 mL compress.stocking,knee,reg,lrg #2 ea 03/21/24 Unknown Rx clopidogrel 75 mg tablet (Plavix) 75 mg PO DAILY #90 t abs 05/01/24 08/26/24 Rx albuterol sulfate 90 mcg/actuation 2 puff inhalation Q 6H PRN 12/13/24 Unknown Rx aerosol inhaler shortness of breath or wheez ing #8.5 grams ondansetron 4 mg disintegrating 4 mg PO Q8H PRN PRN Na usea #10 tabs 05/06/24 Unknown Rx tablet ursodiol 300 mg capsule 300 mg PO BID #180 caps 01/13 Unknown Rx prochlorperazine maleate 10 mg 10 mg PO BID PRN for mi graine #30 06/26/24 Unknown Rx tablet TABLETS aspirin 81 mg tablet,delayed 81 mg PO DAILY 07/08/24 0 08/26/24 History release (Adult Low Dose Aspirin) oxycodone-acetaminophen 5 mg-325 1 tab PO Q6H PRN PRN pain 07/08/24 Unknown History mg tablet amlodipine 5 mg tablet 5 mg PO DAILY for blood pres sure 07/31/24 08/26/24 Rx #90 TABLETS levothyroxine 137 mcg tablet 137 mcg PO DAILY synthroi d #90 tabs 07/31/24 08/27/24 06:00 Rx Allergy/AdvReac Type Severity Reaction Status Date / Time latex Allergy Itching Verified 08/27/24 07:31 naproxen Allergy Unknown Verified 08/27/24 07:31 Penicillins (PCN) Allergy Rash Verified 08/27/24 07:31 escitalopram (From Lexapro) AdvReac Intermediate Lightheaded Verified 08/27/24 07:31 sertraline (From Zoloft) AdvReac Intermediate Dizzy & Verified 08/27/24 07:31 Headache NSAIDS (Non-Steroidal AdvReac Mild Other Verified 08/27/24 07:31 Anti-Inflamma hydrocodone (From Vicodin) AdvReac Other Verified 08/27/24 07:31 ketorolac (From Toradol) AdvReac Other Verified 08/27/24 07:31 Family History Grandmother Diabetes Hypertension Hypercholesterolemia Thyroid disorder Mother Family history of skin cancer Other High cholesterol Surgical History History of carpal tunnel surgery of right wrist History of surgery on lower extremity Status post incision and drainage (~04/15/22) History of total vaginal hysterectomy (TVH) (~03/22/22) History of thyroidectomy Social History Smoking Status: Current every day smoker (Patient smoked today.) tobacco type: cigarettes Tobacco: How many years used: 13 Electronic Cigarette Use: not used second hand exposure: No alcohol intake: current alcohol intake frequency: holidays/special occasions only substance use type: does not use caffeine: Yes what type of physical activity do you participate in: none seatbelt use: always do you feel safe at home: Yes additional social history: emmy [place] Constitutional Constitutional: Denies chills, fever(s), frequent falls, lethargy or weakness Eyes Eyes: Denies blind spots, change in vision or loss of vision ENT HEENT: Denies bleeding gums, hoarseness or sore throat Cardiovascular Cardiovascular: Reports leg edema; Denies abdominal pain, bluish discoloration of hand/feet, chest pain with activity, claudication, cold extremities, cyanosis, dyspnea on exertion, erythema on extremities, irregular heart rhythm, leg ulcers, numbness in extremities or weakness in extremities Respiratory/Chest Respiratory/Chest: Reports cough; Denies excessive phlegm production, shortness of breath at rest, shortness of breath with exertion or wheezing Gastrointestinal Gastrointestinal: Denies anorexia, change in stool character, constipation, diarrhea, melena or rectal bleeding Genitourinary Genitourinary: Denies dysuria or hematuria Musculoskeletal Musculoskeletal: Denies abnormal gait Integumentary Integumentary: Denies erythema, non-healing lesions or wounds Neurologic Neurologic: Denies abnormal speech, focal weakness, headache(s), loss of vision, numbness, paresthesias or sensory deficit Hematologic/Lymphatic Hematologic/Lymphatic: Denies easy bleeding, easy bruising or lymphadenopathy Vital Signs Vital Signs Vital Signs: 08/27/24 07:33 08/27/24 07:33 08/27/24 08:32 Temperature 98.6 F 98.6 F Temperature Source Temporal Pulse Rate 78 78 Respiratory Rate 16 16 Respiratory Pattern Normal Blood Pressure 105/82 H 105/82 H Blood Pressure Mean 89 Blood Pressure Source Monitor Blood Pressure Position Semi-Fowlers Blood Pressure Location Right Arm Pulse Ox 100 100 Oxygen Delivery Method Room Air Room Air Weight Weight: 242 lb 8.136 oz Body Mass Index (BMI) 39.1 Physical Exam Const alert, oriented x3, no apparent distress and healthy appearing General Appearance: cooperative; Negative for combative or lethargic Orientation / Consciousness: awake Exam Limitations: no limitations HEENT Head and Scalp: normocephalic and atraumatic Eyes EOMs intact bilaterally General Eye: normal appearance of both eyes Neck full ROM General: trachea midline; Negative for tenderness Resp normal respiratory effort and no use of accessory muscles Effort and Inspection: Negative for labored, stridor or audible wheezes Cardio regular rate, regular rhythm and no murmurs Back/Spine Cervical Spine: cervical ROM normal Extremity full ROM, normal capillary refill and no clubbing, cyanosis or edema Skin no rashes or lesions noted and no wounds Neuro oriented x3, CN's II-XII intact bilaterally, no focal motor deficits and no sensory deficits noted Psych thought process normal, cooperative, affect normal, speech normal and activity/motor behavior normal Assessment & Plan Assessment/Plan (1) Symptomatic varicose veins of right lower extremity: PLAN: -with pain -SFJ ligation, chemical ablation
--- NOTE | 2024-08-27 10:54 | PCM.POST.ANE ---
Anesthesia: Postop Eval I Current Vital Signs Temperature: 97.3 F Pulse Rate: 78 Blood Pressure: 128/78 Respiratory Rate: 16 Pulse Ox: 99 Oxygen Delivery Method: Nasal Cannula Oxygen Flow Rate (L/min): 2 Fraction of Inspired Oxygen (FIO2): 0.28 Assessment Airway patent: Yes Spontaneous unlabored respirations: Yes Mental status: Awake nausea: No Vomiting: No Anesthesia Complication: No Fluid Hydration Crystalloid volume administer (ml): 700 Total IV fluid infused: 700 Progress Note Anesthesia document: Postop Eval 1 completed: Yes
--- NOTE | 2024-08-27 11:48 | DCINST_ITS ---
Discharge Instructions Diet Discharge Diet: No restrictions Activity May shower in (days): 2 Lifting Restrictions: do not lift > 20 lbs for 14 days Additional Activity Instructions:: do not submerge incision for 14 days Dressing / Incision Call your doctor if your incision/area has: Sudden Increased Bleeding, Increased Pain/ Swelling, Increased Redness and Foul Smelling Discharge Remove Dressing in: 2 days Follow Up Care Test Results: Test results from this visit will be discussed in further detail at your follow- up appointment, if applicable. Discharge Plan Admission Attending Provider: Greg Enrique Primary Care Provider: Jose Alejandro London Instructions Print Language: Tristanian Discharge Orders/Prescriptions Prescriptions: Continued ketoprofen 75 mg capsule 75 mg PO Q6H PRN (Reason: Migraine Symptoms) Qty: 100 1RF Rx Instructions: 1 cap PO at on set of headache max of 3 in 24 hours, max 20 per month albuterol sulfate 90 mcg/actuation HFA aerosol inhaler 2 puff inhalation Q6H PRN (Reason: shortness of breath or wheezing) Qty: 8.5 0RF ursodiol 300 mg capsule 300 mg PO BID Qty: 180 1RF oxycodone-acetaminophen 5-325 mg tablet 1 tab PO Q6H PRN PRN (Reason: pain) aspirin [Adult Low Dose Aspirin] 81 mg tablet,delayed release (DR/EC) 81 mg PO DAILY Patient Comments: DR. SANCHEZ OK WITH PT NOT STOPPING FOR PROCEDURE ondansetron 4 mg tablet,disintegrating 4 mg PO Q8H PRN PRN (Reason: Nausea) Qty: 10 0RF albuterol sulfate 2.5 mg /3 mL (0.083 %) solution for nebulization 2.5 mg inhalation Q6H PRN (Reason: shortness of breath or wheezing) Qty: 90 1RF (DME) compress.stocking,knee,reg,lrg Misc See Rx Instructions .MEDSUPPLY Qty: 2 1RF Rx Instructions: wear daily for venous insufficiency 20-30 mmHg clopidogrel [Plavix] 75 mg tablet 75 mg PO DAILY Qty: 90 1RF Patient Comments: PT REPORTS DR. SANCHEZ OK WITH NOT STOPPING FOR PROCEDURE prochlorperazine maleate 10 mg tablet 10 mg PO BID PRN (Reason: for migraine) Qty: 30 0RF amlodipine 5 mg tablet 5 mg PO DAILY Qty: 90 0RF levothyroxine 137 mcg tablet 137 mcg PO DAILY Qty: 90 1RF Referrals / Follow Up: Jose Alejandro London MD [Primary Care Provider] - Disposition Disposition (needs filled in before D/C Order can be placed): Home, Self Care
--- NOTE | 2024-08-27 14:18 | OP.PCM_ITS ---
Operative Report (Standard) Operative Information Date of Procedure: 08/27/24 Pre-Operative Diagnosis: venous insufficiency with painful varicose veins, right lower extremity Post-Operative Diagnosis: same Surgery/Procedure Performed: ligation saphenofemoral junction chemical ablation right great saphenous vein dramatic critic: Yes Assistant At Surgery: Karissa Fields Tasks completed by machinist first class: Opening, Closing, Opening & closing, Hemostasis: Tie and Retracting Type of Anesthesia: General RN Documented Start/Stop Times: Operation Date: 08/27/24 08:30 Case Time Into Pre-Op 08/27/24 07:05 Out of Pre-Op 08/27/24 08:36 Into Recovery 08/27/24 10:37 Out of Recovery 08/27/24 11:47 Into Phase II Recovery 08/27/24 11:50 Out of Phase II 08/27/24 13:52 Procedure Start Time: 09:15 Procedure Stop Time: 10:30 Select all DRAINS/GRAFTS/IMPLANTS that apply: None Estimated Blood Loss: 7 Specimen collected: No Surgical Findings: see above Complications Complications: No
--- NOTE | 2024-08-27 14:18 | PCM.OPRPT ---
Operative Report (Standard) Operative Information Date of Procedure: 08/27/24 Pre-Operative Diagnosis: venous insufficiency with painful varicose veins, right lower extremity Post-Operative Diagnosis: same Surgery/Procedure Performed: ligation saphenofemoral junction chemical ablation right great saphenous vein meter technician: Yes Reservoir Engineering Advisor: Karissa Fields Tasks completed by senior court office assistant: Opening, Closing, Opening & closing, Hemostasis: Tie and Retracting Type of Anesthesia: General RN Documented Start/Stop Times: Operation Date: 08/27/24 08:30 Case Time Into Pre-Op 08/27/24 07:05 Out of Pre-Op 08/27/24 08:36 Into Recovery 08/27/24 10:37 Out of Recovery 08/27/24 11:47 Into Phase II Recovery 08/27/24 11:50 Out of Phase II 08/27/24 13:52 Procedure Start Time: 09:15 Procedure Stop Time: 10:30 Select all DRAINS/GRAFTS/IMPLANTS that apply: None Estimated Blood Loss: 7 Specimen collected: No Description of surgery: HPI: Patient is a 39-year-old female with venous insufficiency and painful varicose veins as well as skin pigment deposition in the left medial ankle. She has had episodes of unprovoked distal deep venous thrombosis and superficial venous thrombosis. She has reflux throughout her great saphenous vein including saphenofemoral junction which is enlarged. She presents now for chemical ablation of the great saphenous vein and saphenofemoral junction ligation. Description of procedure: Upon obtained informed consent and verification correct patient nursing staff patient was taken to the Chest Painting And Sealing Supervisor where she was placed under general anesthesia. She was then positioned prepped and draped in usual sterile fashion and timeout was performed. Ultrasound was used to evaluate the great saphenous vein from the ankle to saphenofemoral junction and it was continuous with no areas of significant tortuosity or occlusion. Oblique incision was made over the saphenofemoral junction and Bovie electrocautery used to dissect down through subcutaneous tissue. Self-retaining retractor put in position further dissection was carried down to the saphenofemoral junction and its branches were visualized. Sharp dissection was then used to dissect free the branches individually which were then ligated with silk ties and divided. Dissection was carried cephalad to the junction with the common femoral vein and a right angle was used to place vessel loop. Next under ultrasound guidance the great saphenous vein was accessed at the ankle with micropuncture needle wire. This was then exchanged for 7 Lithuanian ablation sheath which was advanced without resistance. Through the 7 Lithuanian sheath the glue delivery guide was advanced under ultrasound guidance up to the saphenofemoral junction. Through the guide the glue delivery catheter was advanced and positioned just below the intended site of ligation. The saphenofemoral junction was then clamped at the confluence with the common femoral vein and ligated with silk ties at the inferior aspect of the wound above the catheter tip. The vessel was then divided in the superior aspect oversewn with 5-0 Prolene in 2 layers after which the clamps were removed and satisfactory stasis was observed. Next chemical ablation was performed throughout the great saphenous vein from the ligated segment down to the sheath. The guiding catheter then withdrawn followed by removal of the 7 Lithuanian sheath and manual pressure until hemostasis was obtained. The incision was then inspected for hemostasis and closed with 3-0 Vicryl, 4-0 Vicryl, 4-0 Monocryl and Dermabond for the skin. The patient was then taken to recovery with anticipated discharge home. Surgical Findings: see above Complications Complications: No
--- NOTE | 2024-08-27 19:17 | POSTOPAN2_ITS ---
Anesthesia Postop Eval I Sum Postop Eval Completion status Anesthesia document: Postop Eval 1 completed: Yes Anesthesia Postop Eval I Summary Anesthesia Postop Eval I Summary: Anesthesia Postop Eval I: Assessment Summary Airway patent Yes 08/27/24 10:55 NETWORK TECHNICAL ANALYST.NFOR Spontaneous unlabored Yes 08/27/24 10:55 NETWORK TECHNICAL ANALYST.NFOR respirations Mental status Awake 08/27/24 10:55 NETWORK TECHNICAL ANALYST.NFOR nausea No 08/27/24 10:55 NETWORK TECHNICAL ANALYST.NFOR Vomiting No 08/27/24 10:55 NETWORK TECHNICAL ANALYST.NFOR Anesthesia Postop Eval I: Fluid Summary Crystalloid volume administer 700 08/27/24 10:55 NETWORK TECHNICAL ANALYST.NFOR (ml) Colloids volume administered ( ml) Blood Product volume administered (ml) Total IV fluid infused 700 08/27/24 10:55 NETWORK TECHNICAL ANALYST.NFOR Anesthesia Postop Eval I: Summary Notes Anesthesia Complication No 08/27/24 10:55 NETWORK TECHNICAL ANALYST.NFOR Anesthesia Complication Comment: Post-operative progress note Anesthesia: Postop Eval II Evaluation Mental status: Awake and Calm Pain Level: 1 nausea: No Vomiting: No Complications Anesthesia Complication: No
--- NOTE | 2024-08-27 19:17 | PCM.POSTANE2 ---
Anesthesia Postop Eval I Sum Postop Eval Completion status Anesthesia document: Postop Eval 1 completed: Yes Anesthesia Postop Eval I Summary Anesthesia Postop Eval I Summary: Anesthesia Postop Eval I: Assessment Summary Airway patent Yes 08/27/24 10:55 THEATRE INSTRUCTOR.[email or web address] Spontaneous unlabored Yes 08/27/24 10:55 THEATRE INSTRUCTOR.NFOR respirations Mental status Awake 08/27/24 10:55 THEATRE INSTRUCTOR.NFOR nausea No 08/27/24 10:55 THEATRE INSTRUCTOR.NFOR Vomiting No 08/27/24 10:55 THEATRE INSTRUCTOR.NFOR Anesthesia Postop Eval I: Fluid Summary Crystalloid volume administer 700 08/27/24 10:55 THEATRE INSTRUCTOR.NFOR (ml) Colloids volume administered ( ml) Blood Product volume administered (ml) Total IV fluid infused 700 08/27/24 10:55 THEATRE INSTRUCTOR.NFOR Anesthesia Postop Eval I: Summary Notes Anesthesia Complication No 08/27/24 10:55 THEATRE INSTRUCTOR.NFOR Anesthesia Complication Comment: Post-operative progress note Anesthesia: Postop Eval II Evaluation Mental status: Awake and Calm Pain Level: 1 nausea: No Vomiting: No Complications Anesthesia Complication: No
== END 2024-08-27 13:52 | disposition home or self-care (01) ==
LOC: SDC 07:03 → AC 07:10
PROVIDERS: PCP Internal Medicine; Referring Provider Surgery Trauma Surgery; Visit Provider Surgery Trauma Surgery
PROC: (CPT 36478; principal; 2024-08-27 08:15)
DX: I83.811 Varicose veins of right lower extremity with pain (principal); I10 Essential (primary) hypertension; M79.7 Fibromyalgia; M54.9 Dorsalgia, unspecified; F41.1 Generalized anxiety disorder; F90.2 Attention-deficit hyperactivity disorder, combined type; Z79.82 Long term (current) use of aspirin; Z79.02 Long term (current) use of antithrombotics/antiplatelets; Z79.890 Hormone replacement therapy; Z87.891 Personal history of nicotine dependence; Z86.718 Personal history of other venous thrombosis and embolism
CPT/HCPCS: 01520; 36482; 37700; A4648; C1894; J2405

== ENCOUNTER 2024-08-29 18:10 | Emergency (ER) | payer MEDICAID, SELFPAY ==
[2024-08-29] VITALS (7 sets, daily range): BP systolic 115–136; BP diastolic 70–87; PULSE 76–89; RESP 16–18; TEMP 36.6–36.8; O2SAT 98–100; BMI 39.7
--- NOTE | 2024-08-29 18:32 | EKG12_ITS ---
Test Reason : CP Blood Pressure : */* mmHG Vent. Rate : 80 BPM Atrial Rate : 80 BPM P-R Int : 160 ms QRS Dur : 76 ms QT Int : 354 ms P-R-T Axes : 49 47 33 degrees QTcB Int : 408 ms Normal sinus rhythm Normal ECG Confirmed by Sandro Olsen ([id number]), advertising editor JULIO HDEZ ([id number]) on 09/02/2024 6:43:55 AM Referred By: LILIANE Confirmed By: Sandro Olsen
--- NOTE | 2024-08-29 18:40 | RAD_ITS ---
PROCEDURE: CHEST 1 VIEW (PORTABLE) 08/29/2024 REASON FOR EXAM: CHEST PAIN TECHNIQUE: Frontal view of the chest. COMPARISON: 07/25/2024 FINDINGS: Hardware: None Heart: The heart size is normal. Lungs: Gluteal opacity right lower lobe, likely secondary to atelectasis. Otherwise, no focal consolidation. No pneumothorax. No pleural effusion. Bones: The bones are unremarkable. Other: RAD/Chest 1 View (Portable) IMPRESSION: No Acute Findings. Reading Location: [facility]
--- NOTE | 2024-08-29 18:53 | CT_ITS ---
PROCEDURE: CTA CHEST W/WO CONTRAST 08/29/2024 REASON FOR EXAM: CP, DYSPNEA, POSTOP TECHNIQUE: CTA imaging of the chest, abdomen and pelvis without and with intravenous contrast. Coronal and Sagittal reconstruction series were provided. 3D, 3D post processing, 3D reconstructions, Maximum intensity projection (MIPs) Volume rendering and Shaded surface rendering was provided. CONTRAST: Yes One or more dose reduction techniques were used (e.g., Automated exposure control, adjustment of the mA and/or kV according to patient size, use of iterative reconstruction technique). RADIATION DOSE SUMMARY: CTDlvol: 11.87 MGy DLP: 5.94 mGycm COMPARISON: Chest x-ray performed on the same date. FINDINGS: The trachea and central bronchial tree are patent. There is no pleural or pericardial effusion. The heart is normal in size. The thoracic aorta is normal in size and caliber. The pulmonary artery is normal in size and caliber. There is no filling defect to suggest pulmonary arterial embolism. There are shotty lymph nodes within the mediastinum, which is nonspecific. There is nodular thickening involving the pleura particularly at the lung bases. These were present on prior may represent on prior examination and may represent subsegmental atelectasis. This is best seen on image 45/234 and image 196/284. This is to be reassessed on follow-up. No definite evidence of pneumonia. No acute osseous abnormality is present. Hiatal hernia is present. Air is noted throughout the esophagus. Correlate clinically for reflux disease. CT/CTA Chest W/WO Contrast IMPRESSION: Hiatal hernia. Air noted throughout the esophagus. Correlate clinically for r eflux disease. No evidence of pulmonary embolism. Nodular opacities within the lower lung zones, may represent subsegmental atele ctasis. These were present on prior. Other findings as above. Reading Location: [id number]
[2024-08-29 18:54] LABS: Absolute Lymphocyte Count 2.37 X10^3/uL (0.83-4.51); Absolute Neutrophil Count 4.4 X10^3/uL (2.0-7.7); Basophil# 0.03 X10^3/uL; Basophil% 0.4 % (0-1); Eosinophil# 0.18 X10^3/uL; Eosinophils% 2.3 % (0-5); Hemoglobin 13.5 g/dL (12.0-15.0); Lymphocyte # 2.37 X10^3/ul (0.83-4.51); Lymphocyte % 30.8 % (19-41); Mean Corp Hgb Conc 32.9 g/dL (32-36); Mean Corpuscular Hgb 28.3 pg (27.0-32.0); Mean Platelet Vol. 10.6 fl (6.2-12.0); Monocyte# 0.74 X10^3/uL; Monocyte% 9.6 % (0-10); NRBC Flagged by Analyzer 0 % (0-5); Neutrophil # 4.35 X10^3/uL (2.7-7.7); Neutrophil % 56.5 % (47-70); Platelet Count 176 K/mm3 (150-450); RBC Distribution Width CV 13.1 % (11.6-14.6); RBC Distribution Width SD 40.8 fl (35.1-43.9); Red Blood Count 4.77 M/mm3 (4.2-5.4); White Blood Count 7.7 K/mm3 (4.4-11.0)
--- NOTE | 2024-08-29 18:54 | EDS_ITS ---
HPI History of Present Illness Chief Complaint: Chest Pain Onset/Context/Timing Onset: Today Narrative Narrative: Substernal chest pain dyspnea today. No radicular symptoms. Mild dry cough. 2 days postop right varicose vein ablation with ligation of the veins by Dr. Enrique. She had recent angioplasty to the artery she is on aspirin and Plavix currently. She has had multiple DVTs in the past was on Xarelto. Currently has been off of it. She states she had planned ultrasound right lower leg tomorrow to evaluate for DVT if she needs to be back on Xarelto. Tobacco history hypertension. No family history of MIs at a young age. Postop right upper groin and thigh pain. No swelling. She has been mobile since her procedure. [facility] Medical History Chronic back pain Hx of flexible sigmoidoscopy Wears glasses Heartburn Bronchitis History of edema Hx of fracture of arm Deep vein blood clot of right lower extremity DVT (deep venous thrombosis) Right foot sprain Right ankle sprain Breast pain, right Herniated nucleus pulposus, C4-5 Contact with or exposure to other viral diseases Dermatitis PONV (postoperative nausea and vomiting) Leg cramps Anxiety and depression Left shoulder pain Depression Chronic pain Cancer Arthritis Fatty liver Restless legs Back pain Injury of head and neck Syncope Fibromyalgia History of pain when walking Hypertension History of echocardiogram History of stress test Cardiology follow-up encounter Localized swelling, mass and lump, neck Cervical lymphadenopathy Heartburn Chronic RUQ pain Tinnitus Vertigo Ectopic cardiac beats Palpitations RUQ abdominal pain Cervical radiculopathy Left-sided low back pain with left-sided sciatica Hypocalcemia Tobacco abuse Bronchitis Morbid obesity Post herpetic neuralgia NICOLÁS (generalized anxiety disorder) ADHD (attention deficit hyperactivity disorder), combined type Numbness and tingling of both upper extremities Numbness of both lower extremities Migraine without aura and with status migrainosus, not intractable PCOS (polycystic ovarian syndrome) History of gestational diabetes Almaz's thyroiditis History of acne Thyroid disease Home Medications ?Medication ?Instructions ?Recorded ?Last Taken ?Type ketoprofen 75 mg capsule 75 mg PO Q6H PRN Migraine Sy mptoms 11/01/23 Unknown Rx #100 caps albuterol sulfate 2.5 mg/3 mL 2.5 mg (3 mL) inhalation Q6H PRN 01/16/24 Unknown Rx (0.083 %) solution for nebulization shortness of breat h or wheezing #90 mL compress.stocking,knee,reg,lrg #2 ea 03/21/24 Unknown Rx clopidogrel 75 mg tablet (Plavix) 75 mg PO DAILY #90 t abs 05/01/24 08/26/24 Rx albuterol sulfate 90 mcg/actuation 2 puff inhalation Q 6H PRN 05/03/24 Unknown Rx aerosol inhaler shortness of breath or wheez ing #8.5 grams ondansetron 4 mg disintegrating 4 mg PO Q8H PRN PRN Na usea #10 tabs 05/06/24 Unk nown Rx tablet ursodiol 300 mg capsule 300 mg PO BID #180 caps 01/13 Unknown Rx prochlorperazine maleate 10 mg 10 mg PO BID PRN for mi graine #30 06/26/24 Unknown Rx tablet TABLETS aspirin 81 mg tablet,delayed 81 mg PO DAILY 07/08/24 0 08/26/24 History release (Adult Low Dose Aspirin) oxycodone-acetaminophen 5 mg-325 1 tab PO Q6H PRN PRN pain 07/08/24 Unknown Hist ory mg tablet amlodipine 5 mg tablet 5 mg PO DAILY for blood pres sure 07/31/24 08/26/24 Rx #90 TABLETS levothyroxine 137 mcg tablet 137 mcg PO DAILY synthroi d #90 tabs 07/31/2401/13 06:00 Rx oxycodone 5 mg tablet 5 mg PO Q8H PRN pain 5 days #15 08/28/24 Unknown Rx tabs omeprazole 40 mg capsule,delayed 40 mg PO DAILY #30 ca ps 08/29/24 Unknown Rx release Allergy/AdvReac Type Severity Reaction Status Date / Time latex Allergy Itching Verified 08/29/24 18:12 naproxen Allergy Unknown Verified 08/29/24 18:12 Penicillins (PCN) Allergy Rash Verified 08/29/24 18:12 escitalopram (From Lexapro) AdvReac Intermediate Lightheaded Verified 08/29/24 18:12 sertraline (From Zoloft) AdvReac Intermediate Dizzy & Verified 08/29/24 18:12 Headache NSAIDS (Non-Steroidal AdvReac Mild Other Verified 08/29/24 18:12 Anti-Inflamma hydrocodone (From Vicodin) AdvReac Other Verified 08/29/24 18:12 ketorolac (From Toradol) AdvReac Other Verified 08/29/24 18:12 Family History Grandmother Diabetes Hypertension Hypercholesterolemia Thyroid disorder Mother Family history of skin cancer Other High cholesterol Surgical History History of carpal tunnel surgery of right wrist History of surgery on lower extremity Status post incision and drainage (~04/15/22) History of total vaginal hysterectomy (TVH) (~03/22/22) History of thyroidectomy Social History household members: spouse housing: house Smoking Status: Current every day smoker tobacco type: cigarettes Tobacco: How many years used: 13 Electronic Cigarette Use: not used second hand exposure: No alcohol intake: current alcohol intake frequency: holidays/special occasions only substance use type: does not use caffeine: Yes what type of physical activity do you participate in: none seatbelt use: always do you feel safe at home: Yes additional social history: emmy [place] ED Constitutional Constitutional ED: Denies chills, fever(s) or sweats ENT ENT ED: Denies sore throat Cardiovascular Cardiovascular: Reports chest pain; Denies leg edema, palpitations or racing heartbeat Respiratory/Chest Respiratory/Chest: Reports cough and dyspnea; Denies dyspnea on exertion Gastrointestinal Gastrointestinal: Denies abdominal pain, diarrhea, nausea or vomiting Genitourinary Genitourinary ED: Denies dysuria, hematuria or urinary frequency Musculoskeletal Musculoskeletal: Reports extremity pain; Denies back pain or neck pain Integumentary Denies rash or wounds Neurologic Neurologic: Denies headache(s), paresthesias or weakness EXAM Physical Exam Const Vital Signs: 08/29/24 18:12 08/29/24 18:15 08/29/24 18:44 Temperature 98.1 F 98.1 F Temperature Source Oral Oral Pulse Rate 87 87 Respiratory Rate 18 18 Respiratory Effort Blood Pressure 115/78 115/78 Blood Pressure Mean 90 90 Pulse Ox 100 100 98 Oxygen Delivery Method Room Air Room Air Room Air 08/29/24 18:44 08/29/24 19:15 08/29/24 20:00 Temperature 98.3 F 98.3 F Temperature Source Oral Oral Pulse Rate 76 76 Respiratory Rate 16 16 Respiratory Effort Normal Non-Labored Blood Pressure 132/78 H 136/87 H Blood Pressure Mean 96 103 Pulse Ox 98 98 Oxygen Delivery Method Room Air Room Air 08/29/24 21:00 08/29/24 21:35 Temperature 98 F Temperature Source Pulse Rate 89 Respiratory Rate 16 Respiratory Effort Blood Pressure 119/70 119/70 Blood Pressure Mean 86 86 Pulse Ox 99 Oxygen Delivery Method Positive well nourished and well developed General Appearance ED: well developed and NAD HEENT Reports moist mucous membranes normocephalic and atraumatic Eyes General Eye ED: Yes normal appearance of both eyes Neck full ROM Chest Wall Chest: Negative for tenderness Resp normal respiratory effort and normal air movement Effort and Inspection: symmetric chest movement; Negative for respiratory distress Cardio regular rate, regular rhythm and no murmurs Peripheral Pulses: pulses 2+ throughout GI normal to inspection, nondistended, normoactive bowel sounds and non-tender Palpation: Negative for guarding or rebound tenderness present Extremity normal to inspection Extremity Narrative: Mild tenderness medial thigh no calf tenderness. Soft compartments. General Extremety ED: Yes tenderness; Negative for edema General Extremity: Negative for edema Neuro oriented x3 and no sensory deficits noted Sensorium / Orientation: awake and alert Skin Skin Narrative: Right groin wound with glue clean, dry, intact. No ecchymosis noted. MDM MDM MDM Narrative Medical decision making narrative: Interventions / MDM: Differential diagnosis: Atypical chest pain, hiatal hernia, dyspnea, Diagnosis considered but do not suspect: Pulmonary embolism, pneumonia, pneumothorax however CT negative. ACS however workup negative. DVT however ultrasound negative. My EKG interpretation: Sinus rate of 80, no ST changes, T wave version anterior leads. V2 more inverted compared to EKG July 2024. Imaging independently reviewed and interpreted by myself: 1 view chest x-ray: No acute process. CTA chest: No PE. Atelectasis changes. External documents reviewed: N/A Test considered but not ordered:N/A ED course: Chest pain postop. EKG T wave inversions. Cardiac workup initiated. She had a positive chest x-ray performed bedside per nursing protocol. Negative per my review. She is postop chest pain dyspnea day 2. Moderate risk Wells criteria for PE. Added CT angiogram of the chest. Will check Doppler ultrasound right lower extremity with her DVT history. 2024: CTA chest negative for PE. Atelectasis noted per radiology. Right lower extremity VTE no definitive DVT, ablation changes to right gastroc. Initial troponin negative. Awaiting delta troponin. Patient will follow-up with delta troponin negative. Reassured of the findings. With findings of hiatal hernia we will place her on omeprazole. She does follow with GI Dr. Friend. Her doctors. All questions were answered. Re-evaluation: stable Disposition discussed with patient/family/significant other: Patient and family Case discussed with consulting clinician: N/A This note was generated with [employer] dictation software. It may contain incorrect words, spelling, and punctuation that were not noted in checking the note before signing. Lab Data Attestation: I reviewed the patient's lab results. Labs: Laboratory Results - last 24 hr 08/29/24 08/29/24 18:40 20:35 WBC 7.7 RBC 4.77 Hgb 13.5 Hct 41.0 MCV 86.0 MCH 28.3 MCHC 32.9 RDW Std Deviation 40.8 RDW Coeff of Mikel 13.1 Plt Count 176 MPV 10.6 Immature Gran % (Auto) 0.400 Neut % (Auto) 56.5 Lymph % (Auto) 30.8 Jones % (Auto) 9.6 Eos % (Auto) 2.3 Baso % (Auto) 0.4 Absolute Neuts (auto) 4.4 Absolute Lymphs (auto) 2.37 Nucleated RBC % 0 Sodium 136 Potassium 3.9 Chloride 103 Carbon Dioxide 20.5 L Anion Gap 13 BUN 10 Creatinine 0.73 Estim Creat Clear Calc 133.76 Est GFR (MDRD) Non-Af 109 BUN/Creatinine Ratio 13.6 Glucose 149 H Calcium 9.0 Troponin T High Sens < 6 Troponin T Hi Sens 2 Hr < 6 Radiography Diagnostic Testing: Clinical Impression(s) from Imaging Studies Chest X-Ray 08/29/24 18:40 IMPRESSION: No Acute Findings. Reading Location: [facility] Chest CTA 08/29/24 18:53 IMPRESSION: Hiatal hernia. Air noted throughout the esophagus. Correlate clinically for reflux disease. No evidence of pulmonary embolism. Nodular opacities within the lower lung zones, may represent subsegmental atelectasis. These were present on prior. Other findings as above. Reading Location: [facility] Venous Duplex 08/29/24 18:59 IMPRESSION: Limited exam as above. Probable post ablation changes within the right GSV. No definite DVT seen within the visualized portion of the right common femoral vein, femoral vein and popliteal vein Reading Location: [facility] Discharge Plan Triage Chief Complaint: Chest Pain ED Provider: Drake Guzman Dx/Rx/DC Orders Clinical Impression: Chest pain, Dyspnea, Hiatal hernia Instructions: ED Chest Pain, Uncertain Cause, ED Hiatal Hernia Prescriptions: New omeprazole 40 mg capsule,delayed release(DR/EC) 40 mg PO DAILY Qty: 30 0RF No Action ketoprofen 75 mg capsule 75 mg PO Q6H PRN (Reason: Migraine Symptoms) Qty: 100 1RF Rx Instructions: 1 cap PO at on set of headache max of 3 in 24 hours, max 20 per month albuterol sulfate 90 mcg/actuation HFA aerosol inhaler 2 puff inhalation Q6H PRN (Reason: shortness of breath or wheezing) Qty: 8.5 0RF ursodiol 300 mg capsule 300 mg PO BID Qty: 180 1RF oxycodone-acetaminophen 5-325 mg tablet 1 tab PO Q6H PRN PRN (Reason: pain) aspirin [Adult Low Dose Aspirin] 81 mg tablet,delayed release (DR/EC) 81 mg PO DAILY Patient Comments: FRIEND OK WITH PT NOT STOPPING FOR PROCEDURE ondansetron 4 mg tablet,disintegrating 4 mg PO Q8H PRN PRN (Reason: Nausea) Qty: 10 0RF albuterol sulfate 2.5 mg /3 mL (0.083 %) solution for nebulization 2.5 mg inhalation Q6H PRN (Reason: shortness of breath or wheezing) Qty: 90 1RF (DME) compress.stocking,knee,reg,lrg Misc See Rx Instructions .MEDSUPPLY Qty: 2 1RF Rx Instructions: wear daily for venous insufficiency 20-30 mmHg clopidogrel [Plavix] 75 mg tablet 75 mg PO DAILY Qty: 90 1RF Patient Comments: PT REPORTS DR. SANCHEZ OK WITH NOT STOPPING FOR PROCEDURE prochlorperazine maleate 10 mg tablet 10 mg PO BID PRN (Reason: for migraine) Qty: 30 0RF amlodipine 5 mg tablet 5 mg PO DAILY Qty: 90 0RF levothyroxine 137 mcg tablet 137 mcg PO DAILY Qty: 90 1RF oxycodone 5 mg tablet 5 mg PO Q8H PRN (Reason: pain) 5 Days Qty: 15 0RF Primary Care Provider: Jose Alejandro London Referrals: Jose Alejandro London MD [Primary Care Provider] - 1-2 Weeks Ralph Sanchez DO [Med Staff - Active Staff] - 1-2 Weeks Activity Restrictions/Additional Instructions: CTA chest negative for pulmonary embolism. hiatal hernia noted on CT. Take omeprazole prescribed follow-up with Dr. Sanchez. Cardiac workup negative. Right leg ultrasound negative. Discussed with Dr. Enrique tomorrow if need repeat ultrasound of the right leg. Print Language: Bulgarian Disposition Disposition: Home, Self Care Discharge Date/Time: 08/29/24 21:44
--- NOTE | 2024-08-29 18:59 | US_ITS ---
PROCEDURE: VENOUS DUPLEX IMAG/LIMITED/UNI 08/29/2024 REASON FOR EXAM: Right lower extremity pain TECHNIQUE: Grayscale color flow and doppler analysis of the right lower extremity. COMPARISON: Right lower extremity duplex dated 06/28/2024. FINDINGS: Limited examination. Evaluation of the right common femoral vein is limited. Internal echoes is noted within the right GSV which is consistent with patient's recent history of right lower extremity venous ablation. There is no intraluminal echogenicity within the visualized portions of the right common femoral, femoral and popliteal veins. US/Venous Duplex Imag/Limited/Uni IMPRESSION: Limited exam as above. Probable post ablation changes within the right GSV. N o definite DVT seen within the visualized portion of the right common femoral vein, femoral vein and popliteal vein Reading Location: [id number]
[2024-08-29 19:15] LABS: Anion Gap 13 (5-15); BUN 10 mg/dL (4-19); BUN/Creat Ratio 13.6 RATIO (10-20); Carbon Dioxide 20.5 mmol/L (21.0-32.0); Chloride 103 mmol/L (98-108); Creatinine, Serum 0.73 mg/dL (0.70-1.20); EST Glomerular Filtration Rate 109 (>60); Estimated Creatinine Clearance 133.76 ml/min (50-250); Glucose 149 mg/dL (70-99); Potassium 3.9 mmol/L (3.3-5.1); Sodium Level 136 mmol/L (133-145); Troponin T High Sensitivity < 6 ng/L (<=14)
--- NOTE | 2024-08-29 21:08 | ED.RN ---
THIS NURSE WALKS INTO PATIENT ROOM D/T NO VITALS BEING DISPLAYED ON MONITOR. UPON ENTERING ROOM THIS NURSE OBSERVES BLOOD PRESSURE CUFF LAYING ON THE BED, AND PULSE OFF ANND CARDIAC LEADS OFF OF PT. WHEN I EXPLAINED TO THE PATIENT SHE IS BEING SEEN FOR CHEST PAIN AND NEEDS TO BE CONNECTED TO THE MONITOR THE PT STATES THIS IS THE LAST TIME YOU PUT THIS SHIT ON ME, FUCK THAT.
[2024-08-29 21:21] LABS: Troponin T High Sens 2 HR < 6 ng/L (<=14)
== END 2024-08-29 21:44 | disposition home or self-care (01) ==
PROVIDERS: Emergency Provider Emergency Medicine; PCP Internal Medicine; Visit Provider Emergency Medicine
DX: R07.9 Chest pain, unspecified (principal); I10 Essential (primary) hypertension; K44.9 Diaphragmatic hernia without obstruction or gangrene; R05.9 Cough, unspecified; R06.00 Dyspnea, unspecified; M54.9 Dorsalgia, unspecified; G89.29 Other chronic pain; F17.210 Nicotine dependence, cigarettes, uncomplicated; Z98.890 Other specified postprocedural states; Z79.82 Long term (current) use of aspirin; Z79.02 Long term (current) use of antithrombotics/antiplatelets; Z79.899 Other long term (current) drug therapy; Z86.718 Personal history of other venous thrombosis and embolism
CPT/HCPCS: 71045; 71275; 80048; 84484; 85025; 93005; 93971; 99284; Q9967; A4216

== ENCOUNTER → 2024-09-03 | Outpatient (CLI) | payer MEDICAID, SELFPAY ==
[2024-09-03 14:40] LABS: Absolute Lymphocyte Count 1.29 X10^3/uL (0.83-4.51); Basophil# 0.03 X10^3/uL; Basophil% 0.5 % (0-1); Eosinophils% 3.3 % (0-5); Hematocrit 40.1 % (37-47); Hemoglobin 13.3 g/dL (12.0-15.0); Lymphocyte # 1.29 X10^3/ul (0.83-4.51); Lymphocyte % 21.1 % (19-41); Mean Corp Hgb Conc 33.2 g/dL (32-36); Mean Corpuscular Volume 84.4 fL (81-99); Mean Platelet Vol. 10.8 fl (6.2-12.0); Monocyte# 0.58 X10^3/uL; Monocyte% 9.5 % (0-10); NRBC Flagged by Analyzer 0 % (0-5); Neutrophil # 4.01 X10^3/uL (2.7-7.7); Neutrophil % 65.4 % (47-70); Platelet Count 196 K/mm3 (150-450); RBC Distribution Width CV 12.8 % (11.6-14.6); RBC Distribution Width SD 39.3 fl (35.1-43.9); Red Blood Count 4.75 M/mm3 (4.2-5.4); White Blood Count 6.1 K/mm3 (4.4-11.0)
[2024-09-03 15:31] LABS: Anion Gap 10 (5-15); BUN 10 mg/dL (4-19); BUN/Creat Ratio 12.3 RATIO (10-20); Calcium,Total 9.3 mg/dL (7.6-11.0); Carbon Dioxide 24.9 mmol/L (21.0-32.0); Chloride 103 mmol/L (98-108); Creatinine, Serum 0.83 mg/dL (0.70-1.20); EST Glomerular Filtration Rate 93 (>60); Glucose 151 mg/dL (70-99); Potassium 3.8 mmol/L (3.3-5.1); Sodium Level 138 mmol/L (133-145)
== END | disposition home or self-care (01) ==
PROVIDERS: PCP Internal Medicine; Referring Provider Physician Assistant; Visit Provider Physician Assistant
DX: R50.9 Fever, unspecified (principal)
CPT/HCPCS: 36415; 80048; 85025

== ENCOUNTER → 2024-09-04 | Outpatient (CLI) | payer MEDICAID, SELFPAY ==
--- NOTE | 2024-09-04 12:58 | VDLE_ITS ---
Reason For Study Reason For Study: Right leg pain, s/p GSV ligation and ablation RIGHT LEFT SFJ is occluded s/p ligation CFV is compressible, spontaneous, phasic, competent, GSV is occluded throughout s/p Venaseal ablation. and demonstrates normal augmentation. CFV and prox FV is partially compressible with bright intraluminal echoes consistent with Chronic DVT. Normal venous flow. FV is compressible, spontaneous, phasic, competent and demonstrates normal augmentation. POP V is compressible, spontaneous, phasic, competent and demonstrates normal augmentation. T/P Trunk is compressible. PTV is compressible. RT PerV is compressible. Procedure This is a venous duplex using B-mode, color flow and spectral Doppler. Exam performed in department. A preliminary report was called and/or faxed to Savannah R[facility]. VL/Venous Duplex US, Unilateral Interpretation Summary Deep veins of the right lower extremity are patent and compressible segmentally . There is no evidence of right lower extremity deep vein thrombosis. Unchanged appearance/wall thickening of the right common femoral vein. Occlusion of great saphenous vein consistent with recent ablation. Ordering Physician: Britany Nuñez Referring Physician: Jose Alejandro London Performed By: Angie Solomon RVT
== END | disposition home or self-care (01) ==
LOC: CVS 12:58
PROVIDERS: PCP Internal Medicine; Referring Provider Physician Assistant; Visit Provider Physician Assistant
DX: M79.604 Pain in right leg (principal); Z98.890 Other specified postprocedural states
CPT/HCPCS: 93971

== ENCOUNTER → 2024-09-17 | Outpatient (CLI) | payer MEDICAID, SELFPAY ==
--- NOTE | 2024-09-17 14:00 | VDLE_ITS ---
Reason For Study Reason For Study: Right thigh pain RIGHT LEFT SFJ is occluded s/p ligation CFV is compressible, spontaneous, phasic, competent, GSV is occluded throughout s/p Venaseal ablation. and demonstrates normal augmentation. Varicose veins at distal thigh are noncompressible. CFV and prox FV is partially compressible with bright intraluminal echoes consistent with Chronic DVT. Normal venous flow. FV is compressible, spontaneous, phasic, competent and demonstrates normal augmentation. POP V is compressible, spontaneous, phasic, competent and demonstrates normal augmentation. T/P Trunk is compressible. PTV is compressible. RT PerV is compressible. Procedure This is a venous duplex using B-mode, color flow and spectral Doppler. Exam performed in department. S/P SFJ ligation and GSV ablation 08/27/2024. A preliminary report was called and/or faxed to Aisha GATES. VL/Venous Duplex US, Unilateral Interpretation Summary Deep veins of the right lower extremity are patent and compressible segmentally . There is no evidence of right lower extremity deep vein thrombosis. Unchanged appearance/wall thickening of the right common femoral vein. Occlusion of great saphenous vein and adjacent varicosities consistent with rec ent ablation. Ordering Physician: Britany Nuñez Referring Physician: Jose Alejandro London Performed By: Angie Solomon RVT
== END | disposition home or self-care (01) ==
LOC: CVS 13:59
PROVIDERS: PCP Internal Medicine; Referring Provider Physician Assistant; Visit Provider Physician Assistant
DX: M79.651 Pain in right thigh (principal); M79.89 Other specified soft tissue disorders
CPT/HCPCS: 93971

== ENCOUNTER → 2024-09-19 | Outpatient (CLI) | payer MEDICAID, SELFPAY | END | disposition home or self-care (01) | LOC: PSN 09:16 | PROVIDERS: PCP Internal Medicine; Referring Provider Nurse Practitioner Family; Visit Provider Nurse Practitioner Family | DX: R06.02 Shortness of breath (principal) | CPT/HCPCS: 94060; 94726; 94729 ==

== ENCOUNTER → 2024-09-24 | Outpatient (CLI) | payer MEDICAID, SELFPAY ==
[2024-09-24 13:45] LABS: Hematocrit 41.1 % (37-47); Hemoglobin 13.5 g/dL (12.0-15.0); Mean Corp Hgb Conc 32.8 g/dL (32-36); Mean Corpuscular Volume 85.3 fL (81-99); Mean Platelet Vol. 10.5 fl (6.2-12.0); Platelet Count 165 K/mm3 (150-450); RBC Distribution Width CV 13.1 % (11.6-14.6); RBC Distribution Width SD 40.1 fl (35.1-43.9); Red Blood Count 4.82 M/mm3 (4.2-5.4); White Blood Count 5.2 K/mm3 (4.4-11.0)
== END | disposition home or self-care (01) ==
LOC: PAVLAB 13:31
PROVIDERS: PCP Internal Medicine; Referring Provider Physician Assistant; Visit Provider Physician Assistant
DX: K62.5 Hemorrhage of anus and rectum (principal); R53.83 Other fatigue
CPT/HCPCS: 36415; 85027

== ENCOUNTER → 2024-09-25 | Outpatient (CLI) | payer MEDICAID, SELFPAY | END | disposition home or self-care (01) | LOC: LABSPEC 14:46 | PROVIDERS: PCP Internal Medicine; Referring Provider Nurse Practitioner Women's Health; Visit Provider Nurse Practitioner Women's Health | DX: N93.0 Postcoital and contact bleeding (principal) | CPT/HCPCS: 87070; 87205 ==

== ENCOUNTER 2024-10-06 18:50 | Emergency (ER) | payer MEDICAID, SELFPAY ==
[2024-10-06 18:51] VITALS: BP 133/93; PULSE 95; RESP 18; TEMP 36.3; O2SAT 100; BMI 40.0
--- NOTE | 2024-10-06 19:39 | CT_ITS ---
PROCEDURE: BRAIN/HEAD WITHOUT CONTRAST 10/06/2024 REASON FOR EXAM: DIZZINESS, HEADACHE TECHNIQUE: Head CT without intravenous contrast. Coronal and Sagittal reconstruction series were provided. One or more dose reduction techniques were used (e.g., Automated exposure control, adjustment of the mA and/or kV according to patient size, use of iterative reconstruction technique. COMPARISON: CT brain 02/16/2024 FINDINGS: * ACUTE: No acute infarct or hemorrhage. No mass effect or herniation. * BRAIN PARENCHYMA: Signal intensities are within normal limits for age. * VENTRICLES/EXTRA-AXIAL SPACES: No hydrocephalus or extra-axial fluid collections. * EXTRACRANIAL STRUCTURES: Visualized osseous structures are normal. Soft tissues are normal. CT/Brain/Head without Contrast IMPRESSION: NO ACUTE FINDINGS Reading Location: [facility]
--- NOTE | 2024-10-06 19:40 | EKG12_ITS ---
Test Reason : DYSRHYTHMIA Blood Pressure : */* mmHG Vent. Rate : 78 BPM Atrial Rate : 78 BPM P-R Int : 170 ms QRS Dur : 86 ms QT Int : 388 ms P-R-T Axes : 55 61 39 degrees QTcB Int : 442 ms Normal sinus rhythm Normal ECG Confirmed by ANNA HARTMAN, SHAYNA ([id number]), loan expeditor DIANE SILVER ([id number]) on 10/07/2024 9:28:47 AM Referred By: Confirmed By: SHAYNA CASTILLO MD
[2024-10-06] MEDS: Ondansetron ODT 4 MG Tablet PO (20:04)
[2024-10-06 20:05] LABS: Absolute Lymphocyte Count 1.83 X10^3/uL (0.83-4.51); Basophil# 0.04 X10^3/uL; Basophil% 0.7 % (0-1); Eosinophil# 0.22 X10^3/uL; Eosinophils% 3.9 % (0-5); Hematocrit 39.1 % (37-47); Lymphocyte # 1.83 X10^3/ul (0.83-4.51); Lymphocyte % 32.5 % (19-41); Mean Corp Hgb Conc 33.2 g/dL (32-36); Mean Corpuscular Hgb 28.4 pg (27.0-32.0); Mean Corpuscular Volume 85.4 fL (81-99); Mean Platelet Vol. 10.6 fl (6.2-12.0); Monocyte# 0.48 X10^3/uL; Monocyte% 8.5 % (0-10); NRBC Flagged by Analyzer 0 % (0-5); Neutrophil # 3.04 X10^3/uL (2.7-7.7); Platelet Count 187 K/mm3 (150-450); RBC Distribution Width CV 13.2 % (11.6-14.6); RBC Distribution Width SD 40.5 fl (35.1-43.9); Red Blood Count 4.58 M/mm3 (4.2-5.4); White Blood Count 5.6 K/mm3 (4.4-11.0)
[2024-10-06] MEDS: 0.9% Normal Saline (1000mL) 1,000 ML 1000 ML IV (20:05)
--- NOTE | 2024-10-06 20:05 | EX.ED.DYSGE1 ---
HPI History of Present Illness Chief Complaint: Headache Narrative Narrative: Chief complaint and HPI: Headache. 39-year-old female with past medical history of chronic back pain who follows with pain management, migraines, venous insufficiency, HTN, hypothyroidism presents for evaluation of headache. Patient states she has been having a headache for the last 5 days. Headache has been gradual in onset. Associated with nausea. Denies any photophobia or phonophobia. Patient states she had an episode of lightheadedness/dizziness yesterday but this has since resolved. States she is concerned as her migraines usually do not last this long and usually do not have dizziness associated with them. She has been taking her abortive migraine medicine medicine at home without relief. She denies any fever, chills, URI symptoms, shortness of breath, chest pain, abdominal pain, dysuria. States she has been eating and drinking. Denies any trauma. Denies any numbness, tingling, or, weakness. Review of systems: See HPI Medications: As listed on the chart Allergies: As listed on the chart PFSH: Per chart Vital signs: As listed on the chart. Reviewed. Physical exam: Gen: A&O x3, NAD Head: Normocephalic, atraumatic Eyes: No sclera icterus, conjunctiva clear, PERRL, EOMI ENT: Moist mucous membranes Neck: Trachea midline, No JVD, full range of motion, no meningismus CV: RRR, no murmurs Resp: Lungs CTA BL, no w/r/c GI: Abd soft, non-distended, non-tender, no r/r/g Musc: Full ROM, no deformity Skin: Warm, dry Neuro: Alert, oriented, grossly intact, sensation intact Psych: Cooperative, appropriate mood and affect [facility] Medical History Chronic back pain Hx of flexible sigmoidoscopy Wears glasses Heartburn Bronchitis History of edema Hx of fracture of arm Deep vein blood clot of right lower extremity DVT (deep venous thrombosis) Right foot sprain Right ankle sprain Breast pain, right Herniated nucleus pulposus, C4-5 Contact with or exposure to other viral diseases Dermatitis PONV (postoperative nausea and vomiting) Leg cramps Anxiety and depression Left shoulder pain Depression Chronic pain Cancer Arthritis Fatty liver Restless legs Back pain Injury of head and neck Syncope Fibromyalgia History of pain when walking Hypertension History of echocardiogram History of stress test Cardiology follow-up encounter Localized swelling, mass and lump, neck Cervical lymphadenopathy Heartburn Chronic RUQ pain Tinnitus Vertigo Ectopic cardiac beats Palpitations RUQ abdominal pain Cervical radiculopathy Left-sided low back pain with left-sided sciatica Hypocalcemia Tobacco abuse Bronchitis Morbid obesity Post herpetic neuralgia NICOLÁS (generalized anxiety disorder) ADHD (attention deficit hyperactivity disorder), combined type Numbness and tingling of both upper extremities Numbness of both lower extremities Migraine without aura and with status migrainosus, not intractable PCOS (polycystic ovarian syndrome) History of gestational diabetes Almaz's thyroiditis History of acne Thyroid disease Home Medications ?Medication ?Instructions ?Recorded ?Last Taken ?Type ketoprofen 75 mg capsule 75 mg PO Q6H PRN Migraine Symptoms 11/01/23 Unknown Rx #100 caps albuterol sulfate 2.5 mg/3 mL 2.5 mg (3 mL) inhalation Q6H PRN 01/16/24 Unknown Rx (0.083 %) solution for nebulization shortness of breath or wheezing #90 mL compress.stocking,knee,reg,lrg #2 ea 03/21/24 Unknown Rx clopidogrel 75 mg tablet (Plavix) 75 mg PO DAILY #90 tabs 05/01/24 08/26/24 Rx albuterol sulfate 90 mcg/actuation 2 puff inhalation Q6H PRN 05/03/24 Unknown Rx aerosol inhaler shortness of breath or wheezing #8.5 grams ondansetron 4 mg disintegrating 4 mg PO Q8H PRN PRN Nausea #10 tabs 05/06/24 Unknown Rx tablet ursodiol 300 mg capsule 300 mg PO BID #180 caps 05/29/24 Unknown Rx aspirin 81 mg tablet,delayed 81 mg PO DAILY 07/08/24 08/26/24 History release (Adult Low Dose Aspirin) oxycodone-acetaminophen 5 mg-325 1 tab PO Q6H PRN PRN pain 07/08/24 Unknown History mg tablet amlodipine 5 mg tablet 5 mg PO DAILY for blood pressure 07/31/24 08/26/24 Rx #90 TABLETS levothyroxine 137 mcg tablet 137 mcg PO DAILY synthroid #90 tabs 07/31/24 08/27/24 06:00 Rx omeprazole 40 mg capsule,delayed 40 mg PO DAILY #30 caps 08/29/24 Unknown Rx release prochlorperazine maleate 10 mg 10 mg PO BID PRN for migraine #30 09/10/24 Unknown Rx tablet TABLETS nicotine 14 mg/24 hr daily 1 patch transdermal ONCE #28 ea 09/24/24 Unknown Rx transdermal patch nicotine 7 mg/24 hr daily 1 patch transdermal Q24H #14 ea 09/24/24 Unknown Rx transdermal patch Allergy/AdvReac Type Severity Reaction Status Date / Time latex Allergy Itching Verified 10/06/24 18:51 naproxen Allergy Unknown Verified 10/06/24 18:51 Penicillins (PCN) Allergy Rash Verified 10/06/24 18:51 escitalopram (From Lexapro) AdvReac Intermediate Lightheaded Verified 10/06/24 18:51 sertraline (From Zoloft) AdvReac Intermediate Dizzy & Verified 10/06/24 18:51 Headache NSAIDS (Non-Steroidal AdvReac Mild Other Verified 10/06/24 18:51 Anti-Inflamma hydrocodone (From Vicodin) AdvReac Other Verified 10/06/24 18:51 ketorolac (From Toradol) AdvReac Other Verified 10/06/24 18:51 Family History Grandmother Diabetes Hypertension Hypercholesterolemia Thyroid disorder Mother Family history of skin cancer Other High cholesterol Surgical History History of carpal tunnel surgery of right wrist History of surgery on lower extremity Status post incision and drainage (~04/15/22) History of total vaginal hysterectomy (TVH) (~03/22/22) History of thyroidectomy Social History household members: spouse housing: house Smoking Status: Current every day smoker tobacco type: cigarettes Tobacco: How many years used: 13 Electronic Cigarette Use: not used second hand exposure: No alcohol intake: current alcohol intake frequency: holidays/special occasions only substance use type: does not use caffeine: Yes what type of physical activity do you participate in: none seatbelt use: always do you feel safe at home: Yes additional social history: emmy EXAM Physical Exam Const Vital Signs: 10/06/24 18:51 10/06/24 20:50 10/06/24 22:00 Temperature 97.4 F L 98.7 F Temperature Source Temporal Pulse Rate 95 75 73 Respiratory Rate 18 18 18 Blood Pressure 133/93 H 131/76 H 114/73 Blood Pressure Mean 106 94 86 Pulse Ox 100 99 98 Oxygen Delivery Method Room Air Room Air MDM MDM MDM Narrative Medical decision making narrative: 39-year-old female with past medical history of chronic back pain who follows with pain management, migraines, venous insufficiency, HTN, hypothyroidism presents for evaluation of headache. Headache has been ongoing for 5 days. Associated with nausea and dizziness. Different from previous migraine given duration and dizziness. Patient currently not dizzy. Denies any trauma. Differential diagnosis includes but is not limited to migraine, tension headache, electrolyte abnormality. Suspect less likely intracranial abnormality, UT, or ACS as of course of dizziness. Patient was offered migraine cocktail but states that she does not want Reglan or Benadryl. She is allergic to Toradol. She does not want any narcotics. She declined Tylenol. Therefore I am unable to treat the patient's pain and she confirmed understanding and is okay with this. Will give NS bolus and Zofran. Basic labs ordered with CT head. EKG shows normal sinus rhythm without acute ischemic changes. Heart rate 78. CBC without leukocytosis or anemia. Unremarkable. BMP relatively unremarkable. No ESAU or significant electrolyte abnormality. Troponin unremarkable. UA negative for UTI and ketones. CT of the head shows no acute intracranial abnormality. At this point in time, I suspect her symptoms are secondary to migraine. On reevaluation, patient still has a headache but it is improved. Not dizzy. She was told to follow-up with her primary care physician. Return back to the ED if symptoms change or worsen. Educated to get plenty of sleep. She was educated to try caffeine to help relieve her headache. She states that she has recently been trying to decrease her caffeine intake and this may be also contributing to her migraine. She confirmed understand the plan. Patient stable to discharge home. Impression: 1. Headache suspect migraine 2. History of migraines Lab Data Labs: Laboratory Results - last 24 hr 10/06/24 10/06/24 19:57 20:05 WBC 5.6 RBC 4.58 Hgb 13.0 Hct 39.1 MCV 85.4 MCH 28.4 MCHC 33.2 RDW Std Deviation 40.5 RDW Coeff of Mikel 13.2 Plt Count 187 MPV 10.6 Immature Gran % (Auto) 0.400 Neut % (Auto) 54.0 Lymph % (Auto) 32.5 Jerome % (Auto) 8.5 Eos % (Auto) 3.9 Baso % (Auto) 0.7 Absolute Neuts (auto) 3.0 Absolute Lymphs (auto) 1.83 Nucleated RBC % 0 Sodium 137 Potassium 3.5 Chloride 102 Carbon Dioxide 25.2 Anion Gap 11 BUN 9 Creatinine 0.65 L Estim Creat Clear Calc 150.82 Est GFR (MDRD) Non-Af 116 BUN/Creatinine Ratio 14.0 Glucose 118 H Calcium 9.0 Troponin T High Sens < 6 Urine Color Straw Urine Clarity Clear Urine pH 6.5 Ur Specific [place]ocker 1.010 Urine Protein Negative Urine Glucose (UA) Normal Urine Ketones Negative Urine Occult Blood Negative Urine Nitrite Negative Urine Bilirubin Negative Urine Urobilinogen Normal Ur Leukocyte Esterase Negative Urine RBC 0 SEEN Urine WBC 0 SEEN Ur Squamous Epith Cells 10-25 SEEN Urine Bacteria RARE Urine Mucus 0 SEEN Radiography Diagnostic Testing: Clinical Impression(s) from Imaging Studies Brain CT 10/06/24 19:39 IMPRESSION: NO ACUTE FINDINGS [facility] Triage Chief Complaint: Headache ED Provider: Chuck Allen Dx/Rx/DC Orders Clinical Impression: Headache Instructions: ED Headache Unspecified Prescriptions: No Action ketoprofen 75 mg capsule 75 mg PO Q6H PRN (Reason: Migraine Symptoms) Qty: 100 1RF Rx Instructions: 1 cap PO at on set of headache max of 3 in 24 hours, max 20 per month albuterol sulfate 90 mcg/actuation HFA aerosol inhaler 2 puff inhalation Q6H PRN (Reason: shortness of breath or wheezing) Qty: 8.5 0RF nicotine 14 mg/24 hr patch 24 hour 1 patch transdermal ONCE Qty: 28 1RF nicotine 7 mg/24 hr patch 24 hour 1 patch transdermal Q24H Qty: 14 0RF Rx Instructions: use this dose once completed with 14 mg dosing pack and refill. ursodiol 300 mg capsule 300 mg PO BID Qty: 180 1RF oxycodone-acetaminophen 5-325 mg tablet 1 tab PO Q6H PRN PRN (Reason: pain) aspirin [Adult Low Dose Aspirin] 81 mg tablet,delayed release (DR/EC) 81 mg PO DAILY Patient Comments: DR. SANCHEZ OK WITH PT NOT STOPPING FOR PROCEDURE omeprazole 40 mg capsule,delayed release(DR/EC) 40 mg PO DAILY Qty: 30 0RF ondansetron 4 mg tablet,disintegrating 4 mg PO Q8H PRN PRN (Reason: Nausea) Qty: 10 0RF albuterol sulfate 2.5 mg /3 mL (0.083 %) solution for nebulization 2.5 mg inhalation Q6H PRN (Reason: shortness of breath or wheezing) Qty: 90 1RF (DME) compress.stocking,knee,reg,lrg Misc See Rx Instructions .MEDSUPPLY Qty: 2 1RF Rx Instructions: wear daily for venous insufficiency 20-30 mmHg clopidogrel [Plavix] 75 mg tablet 75 mg PO DAILY Qty: 90 1RF Patient Comments: PT REPORTS DR. SANCHEZ OK WITH NOT STOPPING FOR PROCEDURE amlodipine 5 mg tablet 5 mg PO DAILY Qty: 90 0RF levothyroxine 137 mcg tablet 137 mcg PO DAILY Qty: 90 1RF prochlorperazine maleate 10 mg tablet 10 mg PO BID PRN (Reason: for migraine) Qty: 30 0RF Primary Care Provider: Jose Alejandro London Referrals: Jose Alejandro London MD [Primary Care Provider] - 3-5 Days Activity Restrictions/Additional Instructions: Continue your migraine medication. Follow-up with your primary care physician. Return back to the ED if symptoms change or worsen. Print Language: Azeri Disposition Disposition: Home, Self Care Discharge Date/Time: 10/06/24 22:00
[2024-10-06 20:11] LABS: Mucous, Urine 0 SEEN /hpf (<or=2+); Red Blood Cells-Urine 0 SEEN /hpf (0-5); White Blood Cells 0 SEEN /hpf (0-5)
[2024-10-06 20:13] LABS: Color, Urine Straw (Yellow); Glucose, Dipstick Normal (Normal); Ketone-Dipstick Negative (Negative); Leukocyte Esterase-Dipstick Negative /ul (Negative); Nitrite-Dipstick Negative (Negative); Occult Blood-Urine Negative /ul (Negative); Protein-Dipstick Negative (Negative); Urine Bilirubin Dipstick Negative (Negative); Urine Clarity Clear (Clear); Urine Urobilinogen Normal (Normal); Urine pH 6.5 (5.0 - 8.0)
[2024-10-06 20:31] LABS: Anion Gap 11 (5-15); BUN 9 mg/dL (4-19); Carbon Dioxide 25.2 mmol/L (21.0-32.0); Chloride 102 mmol/L (98-108); Creatinine, Serum 0.65 mg/dL (0.70-1.20); EST Glomerular Filtration Rate 116 (>60); Estimated Creatinine Clearance 150.82 ml/min (50-250); Glucose 118 mg/dL (70-99); Potassium 3.5 mmol/L (3.3-5.1); Sodium Level 137 mmol/L (133-145)
[2024-10-06 20:38] LABS: Bacteria RARE /hpf (None Seen); Squamous Epithelial Cells - UA 10-25 SEEN /hpf (5-10)
[2024-10-06 20:50] VITALS: BP 131/76; PULSE 75; RESP 18; O2SAT 99
[2024-10-06 21:00] LABS: Troponin T High Sensitivity < 6 ng/L (<=14)
[2024-10-06 22:00] VITALS: BP 114/73; PULSE 73; RESP 18; TEMP 37.1; O2SAT 98
== END 2024-10-06 22:00 | disposition home or self-care (01) ==
PROVIDERS: Emergency Provider Surgery; PCP Internal Medicine; Visit Provider Surgery
DX: R51.9 Headache, unspecified (principal); M54.9 Dorsalgia, unspecified; R42 Dizziness and giddiness; I10 Essential (primary) hypertension; I87.2 Venous insufficiency (chronic) (peripheral); E03.9 Hypothyroidism, unspecified; G89.29 Other chronic pain; F41.1 Generalized anxiety disorder; F17.210 Nicotine dependence, cigarettes, uncomplicated; Z79.82 Long term (current) use of aspirin; Z79.02 Long term (current) use of antithrombotics/antiplatelets; Z79.890 Hormone replacement therapy; Z79.899 Other long term (current) drug therapy
CPT/HCPCS: 70450; 80048; 81001; 84484; 85025; 93005; 96360; 96361; 99283; A4216

== ENCOUNTER → 2024-10-09 | Outpatient (CLI) | payer MEDICAID, SELFPAY ==
[2024-10-09 12:30] LABS: Absolute Lymphocyte Count 1.44 X10^3/uL (0.83-4.51); Absolute Neutrophil Count 3.7 X10^3/uL (2.0-7.7); Basophil# 0.03 X10^3/uL; Basophil% 0.5 % (0-1); Eosinophil# 0.26 X10^3/uL; Eosinophils% 4.4 % (0-5); Hematocrit 43.1 % (37-47); Hemoglobin 14.3 g/dL (12.0-15.0); Lymphocyte # 1.44 X10^3/ul (0.83-4.51); Lymphocyte % 24.2 % (19-41); Mean Corp Hgb Conc 33.2 g/dL (32-36); Mean Corpuscular Hgb 28.4 pg (27.0-32.0); Mean Corpuscular Volume 85.5 fL (81-99); Mean Platelet Vol. 11.4 fl (6.2-12.0); Monocyte# 0.45 X10^3/uL; Monocyte% 7.6 % (0-10); NRBC Flagged by Analyzer 0 % (0-5); Neutrophil # 3.73 X10^3/uL (2.7-7.7); Neutrophil % 62.8 % (47-70); Platelet Count 193 K/mm3 (150-450); RBC Distribution Width CV 13.1 % (11.6-14.6); RBC Distribution Width SD 40.3 fl (35.1-43.9); Red Blood Count 5.04 M/mm3 (4.2-5.4); White Blood Count 5.9 K/mm3 (4.4-11.0)
[2024-10-09 12:35] LABS: International Normalized Ratio 0.9; Prothrombin Time (Protime)PT. 12.5 SECONDS (11.7-14.9)
[2024-10-09 13:11] LABS: Hemoglobin A1c 5.8 % (<=5.6)
[2024-10-09 13:25] LABS: Cholesterol 223 mg/dL (<=200); High Density Lipoprotein 50 mg/dL; Low Density Lipoprotein Calc. 141 mg/dL; Thyroid Stim Hormone (TSH) 0.996 uIU/mL (0.300-4.200); Triglycerides 164 mg/dL; Very Low Density Lipoprotein 33 mg/dL (5-40); cholesterol:hdl ratio screen 4.51
[2024-10-09 13:27] LABS: ALB/GLOB Ratio 1.5 RATIO (0.9-2.4); AST(SGOT) 19 U/L (<=31); Alanine Aminotransfer ALT/SGPT 25 U/L (<=34); Albumin, Serum 4.5 g/dL (3.5-5.0); Alkaline Phosphatase 77 U/L (35-104); Anion Gap 11 (5-15); BUN 9 mg/dL (4-19); Calcium,Total 9.2 mg/dL (7.6-11.0); Carbon Dioxide 23.1 mmol/L (21.0-32.0); Chloride 103 mmol/L (98-108); Creatinine, Serum 0.66 mg/dL (0.70-1.20); EST Glomerular Filtration Rate 116 (>60); Globulin 2.9 g/dL (2.2-4.2); Glucose 106 mg/dL (70-99); Potassium 4.2 mmol/L (3.3-5.1); Protein, Total 7.4 g/dL (5.9-8.4); Sodium Level 137 mmol/L (133-145); Total Bilirubin 0.31 mg/dL (0.00-1.30)
[2024-10-09 13:35] LABS: CRP < 3.00 mg/L (0.0-3.0)
[2024-10-11 15:08] LABS: Endomysial Antibody IgA Negative (Negative); GGTP 18 IU/L (0-60); Immunoglobulin A 13 mg/dL (87-352); t-Transglutaminase IgA <2 U/mL (0-3)
== END | disposition home or self-care (01) ==
LOC: BIMLAB 10:55
PROVIDERS: Internal Medicine; PCP Internal Medicine; Referring Provider Internal Medicine; Visit Provider Internal Medicine
DX: K76.0 Fatty (change of) liver, not elsewhere classified (principal); E11.9 Type 2 diabetes mellitus without complications; F90.0 Attention-deficit hyperactivity disorder, predominantly inattentive type; R10.11 Right upper quadrant pain; E03.9 Hypothyroidism, unspecified; E88.810 Metabolic syndrome
CPT/HCPCS: 36415; 80053; 80061; 82784; 82977; 83036; 83516; 84443; 85025; 85610; 86140; 86255

== ENCOUNTER → 2024-11-01 | Outpatient (CLI) | payer MEDICAID, SELFPAY ==
--- NOTE | 2024-11-01 14:57 | VDLE_ITS ---
Reason For Study Reason For Study: RLE PAin RIGHT SFJ is occluded s/p ligation GSV is occluded throughout s/p Venaseal ablation. CFV is partially compressible with bright intraluminal echoes consistent with Chronic DVT. Flow appears spontaneous and phasic with normal augmentation FV is partially compressible with bright intraluminal echoes consistent with Chronic DVT. Flow appears spontaneous, phasic and INCOMPETENT for greater than 1.0 second. POP V is compressible, phasic, and INCOMPETENT for greater than 1.0 second. T/P Trunk is compressible. PTV is compressible. RT PerV is compressible. Procedure This is a venous duplex using B-mode, color flow and spectral Doppler. Exam performed in department. The exam was diagnostic. A preliminary report was called and/or faxed to Britany Nu[facility]ez [facility]. VL/Venous Duplex US, Unilateral Interpretation Summary Deep veins of the right lower extremity are patent and compressible segmentally . There is no evidence of right lower extremity deep vein thrombosis. Unchanged appearance/wall thickening of the right common femoral vein. Occlusion of great saphenous vein and adjacent varicosities consistent with rec ent ablation. Ordering Physician: Britany Nuñez Referring Physician: Jose Alejandro London Performed By: Simone Verdugo RVT
== END | disposition home or self-care (01) ==
LOC: CVS 14:56
PROVIDERS: PCP Internal Medicine; Referring Provider Physician Assistant; Visit Provider Physician Assistant
DX: M79.604 Pain in right leg (principal); M79.89 Other specified soft tissue disorders
CPT/HCPCS: 93971

== ENCOUNTER 2024-11-02 01:41 | Emergency (ER) | payer MEDICAID, SELFPAY ==
[2024-11-02 01:42] VITALS: BP 104/79; PULSE 79; RESP 18; TEMP 37; O2SAT 99; BMI 41.8
--- NOTE | 2024-11-02 02:02 | EDS_ITS ---
HPI HPI - GI History of Present Illness Chief Complaint: Abd Pain Informant: patient Narrative Narrative: Patient presents at 2 AM for abdominal pain has been going on for a week. It is right-sided. She concurs that she has been here for this in the past, the same pain, but she presents now because it has been more persistent. She states the right upper quadrant pain she has had chronically, however she has had 2 or 3 months where she really has not dealt with it very much. She has a known hiatal hernia, she admits that she is not compliant with the omeprazole she is supposed to take. She has seen GI. She has known nonalcoholic fatty liver disease. She also has had this right lower quadrant pain before and has been diagnosed with an ovarian cyst and she is concerned that may be what this is. She has had gallbladder test in the past that were unremarkable. She denies any nausea, vomiting, diarrhea, bladder above the rectum, melena. GIs told her she may have irritable bowel syndrome, but they are still going to do a colonoscopy on her at some point. [facility] Medical History Obesity (BMI 30-39.9) Borderline type 2 diabetes mellitus Chronic back pain Hx of flexible sigmoidoscopy Wears glasses Heartburn Bronchitis History of edema Hx of fracture of arm Deep vein blood clot of right lower extremity DVT (deep venous thrombosis) Right foot sprain Right ankle sprain Breast pain, right Herniated nucleus pulposus, C4-5 Contact with or exposure to other viral diseases Dermatitis PONV (postoperative nausea and vomiting) Leg cramps Anxiety and depression Left shoulder pain Depression Chronic pain Cancer Arthritis Fatty liver Restless legs Back pain Injury of head and neck Syncope Fibromyalgia History of pain when walking Hypertension History of echocardiogram History of stress test Cardiology follow-up encounter Localized swelling, mass and lump, neck Cervical lymphadenopathy Heartburn Chronic RUQ pain Tinnitus Vertigo Ectopic cardiac beats Palpitations RUQ abdominal pain Cervical radiculopathy Left-sided low back pain with left-sided sciatica Hypocalcemia Tobacco abuse Bronchitis Morbid obesity Post herpetic neuralgia NICOLÁS (generalized anxiety disorder) ADHD (attention deficit hyperactivity disorder), combined type Numbness and tingling of both upper extremities Numbness of both lower extremities Migraine without aura and with status migrainosus, not intractable PCOS (polycystic ovarian syndrome) History of gestational diabetes Almaz's thyroiditis History of acne Thyroid disease Home Medications ?Medication ?Instructions ?Recorded ?Last Taken ?Type ketoprofen 75 mg capsule 75 mg PO Q6H PRN Migraine Sy mptoms 11/01/23 Unknown Rx #100 caps albuterol sulfate 2.5 mg/3 mL 2.5 mg (3 mL) inhalation Q6H PRN 01/16/24 Unknown Rx (0.083 %) solution for nebulization shortness of breat h or wheezing #90 mL compress.stocking,knee,reg,lrg #2 ea 03/21/24 Unknown Rx clopidogrel 75 mg tablet (Plavix) 75 mg PO DAILY #90 t abs 05/01/24 08/26/24 Rx albuterol sulfate 90 mcg/actuation 2 puff inhalation Q 6H PRN 05/03/24 Unknown Rx aerosol inhaler shortness of breath or wheez ing #8.5 grams ondansetron 4 mg disintegrating 4 mg PO Q8H PRN PRN Na usea #10 tabs 05/06/24 Un known Rx tablet ursodiol 300 mg capsule 300 mg PO BID #180 caps 01/13 Unknown Rx aspirin 81 mg tablet,delayed 81 mg PO DAILY 07/08/24 0 08/26/24 History release (Adult Low Dose Aspirin) oxycodone-acetaminophen 5 mg-325 1 tab PO Q6H PRN PRN pain 07/08/24 Unknown History mg tablet levothyroxine 137 mcg tablet 137 mcg PO DAILY synthroi d #90 tabs 07/31/24 08/27/24 06:00 Rx omeprazole 40 mg capsule,delayed 40 mg PO DAILY #30 ca ps 08/29/24 Unknown Rx release prochlorperazine maleate 10 mg 10 mg PO BID PRN for mi graine #30 09/10/24 Unknown Rx tablet TABLETS nicotine 14 mg/24 hr daily 1 patch transdermal ONCE #2 8 ea 09/24/24 Unknown Rx transdermal patch nicotine 7 mg/24 hr daily 1 patch transdermal Q24H #14 ea 09/24/24 Unknown Rx transdermal patch bisacodyl 5 mg tablet,delayed 5 mg PO QDAY PRN constip ation 1 10/09/24 Unknown Rx release (Dulcolax (bisacodyl)) month #30 tabs rosuvastatin 10 mg tablet 10 mg PO .QHS daily 1 month #30 05/21/25 Unknown Rx tabs topiramate 25 mg tablet (Topamax) 25 mg PO BID #60 tab s 10/09/24 Unknown Rx amlodipine 5 mg tablet 5 mg PO DAILY for blood pres sure 10/21/24 Unknown Rx #90 TABLETS Allergy/AdvReac Type Severity Reaction Status Date / Time latex Allergy Itching Verified 11/02/24 01:42 naproxen Allergy Unknown Verified 11/02/24 01:42 Penicillins (PCN) Allergy Rash Verified 11/02/24 01:42 escitalopram (From Lexapro) AdvReac Intermediate Lightheaded Verified 11/02/24 01:42 sertraline (From Zoloft) AdvReac Intermediate Dizzy & Verified 11/02/24 01:42 Headache NSAIDS (Non-Steroidal AdvReac Mild Other Verified 11/02/24 01:42 Anti-Inflamma hydrocodone (From Vicodin) AdvReac Other Verified 11/02/24 01:42 ketorolac (From Toradol) AdvReac Other Verified 11/02/24 01:42 Family History Grandmother Diabetes Hypertension Hypercholesterolemia Thyroid disorder Mother Family history of skin cancer Other High cholesterol Surgical History History of carpal tunnel surgery of right wrist History of surgery on lower extremity Status post incision and drainage (~04/15/22) History of total vaginal hysterectomy (TVH) (~03/22/22) History of thyroidectomy Social History household members: spouse housing: house Smoking Status: Current every day smoker tobacco type: cigarettes Tobacco: How many years used: 13 Electronic Cigarette Use: not used second hand exposure: No alcohol intake: current alcohol intake frequency: holidays/special occasions only substance use type: does not use caffeine: Yes what type of physical activity do you participate in: none seatbelt use: always do you feel safe at home: Yes additional social history: emmy [facility] Constitutional Constitutional ED: Denies chills or fever(s) Eyes Eyes: Denies change in vision or diplopia ENT ENT ED: Denies rhinorrhea or sore throat Cardiovascular Cardiovascular: Denies chest pain or palpitations Respiratory/Chest Respiratory/Chest: Denies cough or dyspnea Gastrointestinal Gastrointestinal: Reports abdominal pain; Denies diarrhea, hematochezia, melena, nausea or vomiting Genitourinary Genitourinary ED: Denies dysuria or hematuria Musculoskeletal Musculoskeletal: Denies back pain or neck pain Integumentary Denies abscess or rash Neurologic Neurologic: Denies headache(s), paresthesias or weakness Psychiatric Psychiatric: Denies anxiety or suicidal thoughts EXAM Physical Exam Const Vital Signs: 11/02/24 01:42 11/02/24 03:20 Temperature 98.6 F 98.6 F Temperature Source Oral Pulse Rate 79 81 Respiratory Rate 18 16 Blood Pressure 104/79 121/82 H Blood Pressure Mean 87 95 Pulse Ox 99 95 Oxygen Delivery Method Room Air Positive well nourished and well developed General Appearance ED: well developed and NAD HEENT Reports moist mucous membranes normocephalic and atraumatic Eyes PERRL and EOMs intact bilaterally Neck full ROM and supple Resp normal respiratory effort and clear to auscultation bilaterally Cardio regular rate, regular rhythm and no murmurs GI non-distended GI Narrative: mild tenderness RUQ & RLQ; no guarding or rebound Auscultation: normoactive bowel sounds Palpation: soft Back/Spine no CVA tenderness General Back: other FROM Extremity normal to inspection General Extremety ED: Negative for edema, pulses abnormal or tenderness General Extremity: Negative for edema or pulses abnormal Neuro oriented x3, CN's II-XII intact bilaterally and no sensory deficits noted Sensorium / Orientation: awake and alert Motor Exam: strength 5/5 throughout Skin no rashes or lesions noted and no wounds MDM MDM MDM Narrative Medical decision making narrative: Patient has a very benign exam. I advised her that my suspicion for ovarian torsion or tubo-ovarian abscess or appendicitis or perforated viscus are extremely low and I do not think she needs emergent imaging as she has had that before for these issues. She understands that. I advised her that most ovarian cysts do not need emergent surgery or [employer]PER[employer] attention, that pain control is indicated initially, and I offered that to her. She states she is in pain management, and she declined even nonnarcotic pain medications here. I did give her a dose of pantoprazole, as some of this right upper quadrant discomfort could certainly be GI in etiology. Her urine shows some mild pyuria but equivalent to number of squamous epithelial cells, trace leukocyte and some bacteria. And sending for culture but she does not have any urinary symptoms, I do not think we need to treat it empirically. At this time I am reassuring her, and I recommend outpatient follow-up after the weekend with her edge drummer and/your GI physician if she has persistent symptoms. She is encouraged to continue taking her PPI as it is prescribed and recommended which is daily. History & Record Review Discussion w/independent historian: Patient Lab Data Attestation: I reviewed the patient's lab results. Labs: Laboratory Results - last 24 hr 11/02/24 02:10 WBC 6.4 RBC 4.57 Hgb 13.0 Hct 38.7 MCV 84.7 MCH 28.4 MCHC 33.6 RDW Std Deviation 41.2 RDW Coeff of Mikel 13.3 Plt Count 184 MPV 10.6 Immature Gran % (Auto) 0.300 Neut % (Auto) 51.3 Lymph % (Auto) 33.5 [place]in[place] % (Auto) 9.9 Eos % (Auto) 4.5 Baso % (Auto) 0.5 Absolute Neuts (auto) 3.3 Absolute Lymphs (auto) 2.16 Nucleated RBC % 0 Sodium 139 Potassium 3.8 Chloride 107 Carbon Dioxide 22.2 Anion Gap 10 BUN 9 Creatinine 0.69 L Estim Creat Clear Calc 145.60 Est GFR (MDRD) Non-Af 115 BUN/Creatinine Ratio 13.4 Glucose 91 Calcium 8.9 Total Bilirubin 0.28 AST 18 ALT 25 Alkaline Phosphatase 67 Total Protein 6.8 Albumin 4.3 Globulin 2.5 Albumin/Globulin Ratio 1.7 Lipase 39 Urine Color Straw Urine Clarity Clear Urine pH 6.0 Ur Specific Percival 1.020 Urine Protein 15 H Urine Glucose (UA) Normal Urine Ketones Negative Urine Occult Blood Negative Urine Nitrite Negative Urine Bilirubin Negative Urine Urobilinogen Normal Ur Leukocyte Esterase 25 H Urine RBC 0 SEEN Urine WBC 5-10 SEEN Ur Squamous Epith Cells 5-10 SEEN Urine Bacteria 2+ Urine Mucus 2+ Discharge Plan Triage Chief Complaint: Abd Pain ED Provider: Ashutosh Barajas Dx/Rx/DC Orders Clinical Impression: Right-sided abdominal pain of unknown cause Instructions: Abdominal Pain, Ovarian Cysts Prescriptions: No Action ketoprofen 75 mg capsule 75 mg PO Q6H PRN (Reason: Migraine Symptoms) Qty: 100 1RF Rx Instructions: 1 cap PO at on set of headache max of 3 in 24 hours, max 20 per month albuterol sulfate 90 mcg/actuation HFA aerosol inhaler 2 puff inhalation Q6H PRN (Reason: shortness of breath or wheezing) Qty: 8.5 0RF nicotine 14 mg/24 hr patch 24 hour 1 patch transdermal ONCE Qty: 28 1RF nicotine 7 mg/24 hr patch 24 hour 1 patch transdermal Q24H Qty: 14 0RF Rx Instructions: use this dose once completed with 14 mg dosing pack and refill. ursodiol 300 mg capsule 300 mg PO BID Qty: 180 1RF topiramate [Topamax] 25 mg tablet 25 mg PO BID Qty: 60 3RF Rx Instructions: Take 25 mg QHS x 2 weeks then increase to BID bisacodyl [Dulcolax (bisacodyl)] 5 mg tablet,delayed release (DR/EC) 5 mg PO QDAY PRN (Reason: constipation) 30 Days Qty: 30 2RF rosuvastatin 10 mg tablet 10 mg PO .QHS daily 30 Days Qty: 30 4RF oxycodone-acetaminophen 5-325 mg tablet 1 tab PO Q6H PRN PRN (Reason: pain) aspirin [Adult Low Dose Aspirin] 81 mg tablet,delayed release (DR/EC) 81 mg PO DAILY Patient Comments: DR. LAURA ANGULO WITH PT NOT STOPPING FOR PROCEDURE omeprazole 40 mg capsule,delayed release(DR/EC) 40 mg PO DAILY Qty: 30 0RF ondansetron 4 mg tablet,disintegrating 4 mg PO Q8H PRN PRN (Reason: Nausea) Qty: 10 0RF albuterol sulfate 2.5 mg /3 mL (0.083 %) solution for nebulization 2.5 mg inhalation Q6H PRN (Reason: shortness of breath or wheezing) Qty: 90 1RF (DME) compress.stocking,knee,reg,lrg Misc See Rx Instructions .MEDSUPPLY Qty: 2 1RF Rx Instructions: wear daily for venous insufficiency 20-30 mmHg clopidogrel [Plavix] 75 mg tablet 75 mg PO DAILY Qty: 90 1RF Patient Comments: PT REPORTS DR. LAURA ANGULO WITH NOT STOPPING FOR PROCEDURE levothyroxine 137 mcg tablet 137 mcg PO DAILY Qty: 90 1RF prochlorperazine maleate 10 mg tablet 10 mg PO BID PRN (Reason: for migraine) Qty: 30 0RF amlodipine 5 mg tablet 5 mg PO DAILY Qty: 90 0RF Primary Care Provider: Jose Alejandro London Referrals: Jose Alejandro London MD [Primary Care Provider] - 3-5 Days if not improving (And/your your GI doctor and/your edge drummer) Activity Restrictions/Additional Instructions: Your urine had some white blood cells and bacteria in it, we sent that for culture. If it looks suspicious for an infection, you will get a call from us in the ED. Make sure and take your omeprazole daily as prescribed. Print Language: Chinese Disposition Disposition: Home, Self Care Discharge Date/Time: 11/02/24 03:20
[2024-11-02] MEDS: Pantoprazole Sodium 40 MG Tablet PO (02:07)
[2024-11-02 02:17] LABS: Red Blood Cells-Urine 0 SEEN /hpf (0-5)
[2024-11-02 02:18] LABS: Absolute Lymphocyte Count 2.16 X10^3/uL (0.83-4.51); Absolute Neutrophil Count 3.3 X10^3/uL (2.0-7.7); Basophil# 0.03 X10^3/uL; Basophil% 0.5 % (0-1); Eosinophil# 0.29 X10^3/uL; Eosinophils% 4.5 % (0-5); Hematocrit 38.7 % (37-47); Lymphocyte # 2.16 X10^3/ul (0.83-4.51); Lymphocyte % 33.5 % (19-41); Mean Corp Hgb Conc 33.6 g/dL (32-36); Mean Corpuscular Hgb 28.4 pg (27.0-32.0); Mean Corpuscular Volume 84.7 fL (81-99); Mean Platelet Vol. 10.6 fl (6.2-12.0); Monocyte# 0.64 X10^3/uL; Monocyte% 9.9 % (0-10); NRBC Flagged by Analyzer 0 % (0-5); Neutrophil % 51.3 % (47-70); Platelet Count 184 K/mm3 (150-450); RBC Distribution Width CV 13.3 % (11.6-14.6); RBC Distribution Width SD 41.2 fl (35.1-43.9); Red Blood Count 4.57 M/mm3 (4.2-5.4); White Blood Count 6.4 K/mm3 (4.4-11.0)
[2024-11-02 02:26] LABS: Color, Urine Straw (Yellow); Glucose, Dipstick Normal (Normal); Ketone-Dipstick Negative (Negative); Leukocyte Esterase-Dipstick 25 /ul (Negative); Nitrite-Dipstick Negative (Negative); Occult Blood-Urine Negative /ul (Negative); Protein-Dipstick 15 mg/dl (Negative); Urine Bilirubin Dipstick Negative (Negative); Urine Clarity Clear (Clear); Urine Urobilinogen Normal (Normal)
[2024-11-02 02:33] LABS: Bacteria 2+ /hpf (None Seen); Mucous, Urine 2+ /hpf (<or=2+); Squamous Epithelial Cells - UA 5-10 SEEN /hpf (5-10); White Blood Cells 5-10 SEEN /hpf (0-5)
--- OUTSIDE RECORDS SUMMARY | 2024-11-02 02:53 | XMS RPT_ITS | CCD ---
Author Organization [facility] Care Team Providers Care [employer] Equipment Tender Name Role Phone Cassidy Moore MD Unavailable [phone] Sherrie CLINICAL SUPPORT MANAGER, Hanh S Unavailable [phone] Debora Quiroz Unavailable Unavailable Debora Quiroz Unavailable Unavailable Nima Kaur Unavailable Unavailable Angeles RN RN, Sneha Medrano Unavailable Unavailteresita Balderas CLINICAL SUPPORT MANAGER, Hanh S Unavailable [phone] Cassidy Moore MD Unavailable [phone])2 Dr. Aleena London Primary Care Provider 1(33 0) Dr. Aleena London Referring Provider [phone] ADRI Cho Attending Provider Unavailab Lynn CLINICAL SUPPORT MANAGER, CLINICAL SUPPORT MANAGER-C Deysi Attending Provider Dr. Aleena London Attending Provider [phone])2 Dr. Ralph Tracy Attending Provider 1(330) Dr. Royce Mckinney Attending Provider [phone] Cassidy Moore Attending Provider 1(330 ) Sherrie CLINICAL SUPPORT MANAGER, CLINICAL SUPPORT MANAGER-C Hanh Attending Provider [phone] Dr. Aleena London Primary Care Provider [phone] Dr. Aleena London Referring Provider [phone] ADRI Cho Attending Provider UnavailADRI Chen Attending Provider Cleve MARY, CLINICAL SUPPORT MANAGER-C Rea Desai Attending Provider 1(3 30) Dr. Aleena London Primary Care Provider [phone] Dr. Aleena London Referring Provider [phone] ADRI Cho Attending Provider Dr. Aleena Garcia Attending Provider [phone] Baldomero CLINICAL SUPPORT MANAGER, CLINICAL SUPPORT MANAGER-Shiraz Bermudez Attending Provider ADRI Freire Attending Provider Dr. Aleena London Primary Care Provider [phone] Dr. Aleena London Referring Provider [phone])2 Dr. Ralph Tracy Attending Provider ADRI Cho Attending Provider ADRI Lomax Other Provider [phone] Dr. Aleena London Primary Care Provider [phone] Dr. Aleena London Referring Provider 1(330)2 Dr. Cassidy Moore Attending Provider [phone] Dr. Royce Mckinney Attending Provider Enoc CLINICAL SUPPORT MANAGER, CLINICAL SUPPORT MANAGER-C Libertad Attending Provider 1(330) Dr. Earnest Haynes Attending Provider Dr. Aleena London Primary Care Provider [phone] Dr. Aleena London Referring Provider 1(330)2 Dr. Aleena London Attending Provider 1(330)2 Dr. Earnest Haynes Referring Provider Dr. Aleena London Primary Care Provider [phone] Dr. Aleena London Referring Provider 1(330)2 Dr. Cassidy Moore Attending Provider ADRI Albert Attending Provider Dr. Aleena London Primary Care Provider [phone] Dr. Aleena London Referring Provider [phone])2 Cleve CLINICAL SUPPORT MANAGER, CLINICAL SUPPORT MANAGER-C Rea Desai Attending Provider 1(3 30) Dr. Aleena London Primary Care Provider [phone] Lita, Dr. Blount Referring Provider [phone])2 ADRI Cho Attending Provider Unavailab Dr. Cassidy Miller Attending Provider 1(330 ) Dr. Aleena London Attending Provider 1(330)2 Dr. Mo Washington Attending Provider [phone] ADRI Albert Attending Provider Dr. Jossue Sanchez Attending Provider [phone] Dr. Aleena London Primary Care Provider 1(33 0) Lita, Dr. Blount Referring Provider 1(330)2 Dr. Cassidy Moore Referring Provider 1(330 ) Dr. Aleena Lnodon Primary Care Provider 1(33 0) Dr. Aleena London Referring Provider [phone])2 Enoc MARY, CLINICAL SUPPORT MANAGER-C Libertad Attending Provider 1(330) Dr. Cassidy Moore Admit Provider [phone] Dr. Cassidy Moore Other Provider [phone] Dr. Aleena London Primary Care Provider 1(33 0) Dr. Aleena London Referring Provider 1(330)2 Dr. Cassidy Moore Attending Provider 1(330 ) Cleve CLINICAL SUPPORT MANAGER, CLINICAL SUPPORT MANAGER-C Rea Desai Attending Provider 1(3 30) Dr. Aleena London Attending Provider 1(330)2 Dr. Mo Washington Attending Provider [phone] ADRI Albert Attending Provider Dr. Jossue Sanchez Attending Provider [phone] Cassidy Moore Referring Provider 1(330 ) Enoc CLINICAL SUPPORT MANAGER, CLINICAL SUPPORT MANAGER-C Libertad Attending Provider 1(330) Dr. Cassidy Moore Admit Provider [phone])20 Dr. Cassidy Moore Other Provider [phone] Dr. Dimple Lynn Attending Provider 1(3 30) Dr. Aleena London Primary Care Provider [phone] Dr. Aleena London Referring Provider 1(330)2 Dr. Cassidy Moore Attending Provider 1(330 ) Dr. Adele Aguila Emergency Provider Dr. Christiano Eduardo Other Provider Unavaila [facility] Lita, Dr. Blount Primary Care Provider 1(33 0) Dr. Aleena London Referring Provider [phone])2 Cleve CLINICAL SUPPORT MANAGER, CLINICAL SUPPORT MANAGER-C Rea Desai Attending Provider 1(3 30) Dr. Aleena London Primary Care Provider [phone] Dr. Aleena London Referring Provider 1(330)2 Dr. Cassidy Moore Attending Provider 1(330 ) Cleve CLINICAL SUPPORT MANAGER, CLINICAL SUPPORT MANAGER-C Rea Desai Attending Provider [phone] Dr. Mo Washington Attending Provider ADRI Albert Attending Provider Dr. Jossue Sanchez Attending Provider Dr. Cassidy Moore Referring Provider 1(330 ) Enoc CLINICAL SUPPORT MANAGER, CLINICAL SUPPORT MANAGER-C Libertad Attending Provider 1(330) Dr. Cassidy Moore Admit Provider [phone])20 Dr. Cassidy Moore Other Provider [phone])20 Dr. Dimple Lynn Attending Provider 1(3 30) Dr. Adele Aguila Emergency Provider Dr. Christiano Eduardo Other Provider Unavaila Dr. Epifanio Gibson Attending Provider ADRI Cho Attending Provider Unavailab Dr. Aleena León Primary Care Provider [phone] Dr. Cassidy Moore Attending Provider 1(330 )-56 Dr. Cassidy Moore Referring Provider 1(330 )-56 Dr. Aleena London Referring Provider 1(330)2 Dr. Jossue Sanchez Attending Provider Enoc CLINICAL SUPPORT MANAGER, CLINICAL SUPPORT MANAGER-C Libertad Attending Provider [phone] -[phone] Pending, Provider Primary Care Unavailable Dr. Argelia Paris Attending Unavail able lCeve CLINICAL SUPPORT MANAGER, CLINICAL SUPPORT MANAGER-C Rea Desai Attending Provider [phone] ALEENA LONDON Primary Care Unav ailable SANDI HULL Attending Unavailable ULICES BALDERAS Referring Unava ilDr. Aleena Rubio Primary Care Provider [phone] Dr. Cassidy Moore Admit Provider Dr. Cassidy Moore Attending Provider 1(330 ) Dr. Cassidy Moore Referring Provider [phone] Dr. Cassidy Moore Other Provider Dr. Aleena London Primary Care Provider [phone] Dr. Aleena London Referring Provider 1(330)2 Dr. Cassidy Moore Attending Provider [phone] Dr. Adele Aguila Emergency Provider Dr. Cassidy Moore Admit Provider Dr. Cassidy Moore Other Provider Dr. Christiano Eduardo Other Provider Unavaila Dr. Dimple Samuels Attending Provider 1(3 30)-62 Dr. Jossue Sanchez Attending Provider Dr. Cassidy Moore Referring Provider [phone] Dr. Epifanio Kong [facility] Attending Provider Unavailab duyen Stubbs CLINICAL SUPPORT MANAGER, CLINICAL SUPPORT MANAGER-C Libertad Attending Provider 1(330) Cleve CLINICAL SUPPORT MANAGER, CLINICAL SUPPORT MANAGER-C Rea Desai Attending Provider 1(3 30) LITA HARTMAN, ALEENA Fernandes Primary Care Physician (3 30) ALAN QUINN DO Attending Unavailable LITA HARTMAN, ALEENA Fernandes Primary Care Unavailab duyen LONDON MD, ALEENA Fernandes Primary Care Unavailab BALDO Farah Attending Unavailable Dr. Aleena London Primary Care Provider 1(33 0) Dr. Aleena London Referring Provider [phone])2 Sherrie CLINICAL SUPPORT MANAGER, CLINICAL SUPPORT MANAGER-C Hanh Attending Provider 1(330 ) Maeve MARY, CLINICAL SUPPORT MANAGER-C Deysi Attending Provider Dr. Greg Enrique Attending Provider [phone] Dimple Luis Referring Provider Dr. Aleena London Attending Provider 1(330)2 MD Dmitry Pop Attending Provider [phone])- 342 Dr. Jossue Sanchez Attending Provider [phone] Aleena London Primary Care Provider 1(33 0) Dr. Aleena London Referring Provider 1(330)2 Dr. Yusuf Apple Attending Provider [phone]) -342 Dr. Aleena London Primary Care Provider 1(33 0) Dr. Aleena London Referring Provider 1(330)2 Dr. Aleena London Primary Care Provider 1(33 0) Dr. Aleena London Referring Provider 1(330)2 Sherrie CLINICAL SUPPORT MANAGER, TYRA-Shiraz Schafer Attending Provider 1(330 ) Maeve MARY, CLINICAL SUPPORT MANAGER-C Deysi Attending Provider Dr. Greg Enrique Attending Provider [phone] Dimple Luis Referring Provider Dr. Aleena London Attending Provider 1(330)2 MD Dmitry Pop Attending Provider 1(330)- 342 Dr. Jossue Sanchez Attending Provider [phone] Yusuf Apple Attending Provider [phone] Dr. Ralph Tracy Attending Provider [phone] Dr. Aleena London Primary Care Provider 1(33 0) Dr. Aleena London Referring Provider 1(330)2 Dr. Dimple Lynn Attending Provider [phone] [phone] Sherrie CLINICAL SUPPORT MANAGER, CLINICAL SUPPORT MANAGER-C Hanh Attending Provider 1(330 ) Dr. Aleena London Primary Care Provider 1(33 0) Dr. Aleena London Referring Provider 1(330)2 Dimple Lynn R Unavailable Dr. Aleena London Primary Care Provider 1(33 0) Dr. Aleena London Referring Provider 1(330)2 Dr. Ralph Tracy Attending Provider 1(330) Dr. Dimple Lynn Attending Provider [phone] [phone] Sherrie CLINICAL SUPPORT MANAGER, TYRA-C Hanh Attending Provider 1(330 ) Dr. Aleena London Attending Provider 1(330)2 Dr. Mo Washington Attending Provider [phone] Dr. Jossue Sanchez Attending Provider [phone] Yusuf Apple Referring Provider [phone]) -342 Dr. Yusuf Apple Other Provider [phone])-[phone] Aleena London Primary Care Provider 1(33 0) Dr. Aleena London Referring Provider 1(330)2 Dr. Yusuf Apple Attending Provider [phone] -[phone] ADRI Freire Attending Provider Dr. Aleena London Primary Care Provider [phone] Dr. Aleena London Referring Provider 1(330)2 Rossana, Dr. Rosas Attending Provider 1(330) Dr. Dimple Lynn Attending Provider 1(3 30) Sherrie CLINICAL SUPPORT MANAGER, MARY ELLEN Schafer Attending Provider 1(330 ) Dr. Aleena London Attending Provider 1(330)2 Dr. Mo Washington Attending Provider [phone])- 342 Dr. Jossue Sanchez Attending Provider Dr. Yusuf Apple Attending Provider 1(330) Dr. Yusuf Apple Referring Provider [phone]) -342 Dr. Yusuf Apple Other Provider ADRI Freire Attending Provider ADRI Clay Attending Provider [phone] Dr. Aleena London Primary Care Provider 1(33 0) Dr. Aleena London Referring Provider 1(330)2 Dr. Aleena London Primary Care Provider 1(33 0) Dr. Aleena London Referring Provider 1(330)2 Dr. Dimple Lynn Attending Provider 1(3 30) Dr. Cassidy Moore Attending Provider 1(330 ) Unavailable Primary Care Provider Dr. Aleena Carballo Primary Care Provider 1(33 0) Dr. Aleena London Referring Provider 1(330)2 Dr. Reynaldo Flores Attending Provider Dr. Aleena London Primary Care Provider 1(33 0) Dr. Aleena London Referring Provider 1(330)2 Dr. Greg Melgar Referring Provider [phone] Dr. Aleena London Attending Provider 1(330)2 Dr. Ralph Tracy Attending Provider [phone] J Carlos HARTMAN, Nima Medrano Primary Care Provider LUKASZ EUBANKS Attending Unavailable DIMPLE LYNN Referring NIMA Baker Primary Care Unavailable Dr. Aleena London Primary Care Provider 1(33 0) Dr. Aleena London Referring Provider 1(330)2 MARY ELLEN Regalado Attending Provider 1(330) Dr. Mo Washington Attending Provider [phone] ADRI Albert Attending Provider Sherrie MARY, CLINICAL SUPPORT MANAGER-C Hanh Attending Provider [phone] Dr. Aleena London Primary Care Provider 1(33 0) Dr. Aleena London Attending Provider 1(330)2 Dr. Aleena London Referring Provider 1(330)2 Dr. Ralph Tracy Attending Provider [phone] MARY ELLEN Regalado Attending Provider 1(330) Dr. Mo Washington Attending Provider [phone] ADRI Albert Attending Provider Sherrie MARY NP-C Hanh Attending Provider [phone] Aleena London Primary Care Provider UnavailDr. Aleena Castaneda Primary Care Provider 1(33 0) Dr. Aleena London Referring Provider 1(330)2 Dr. Yusuf Apple Attending Provider [phone] Dr. Irving Lobato Attending Provider MARY ELLEN Gunn Attending Provider Dr. Aleena London Attending Provider Oleghnannette, Efewongbe Primary Care Provider Unavaila daryn Kaur MD, Nima Medrano Primary Care Provider [phone] Lita HARTMAN, Aleena Pavondicta Primary Care Prov ider OLEGHE, EFEWONGBE LISE Primary Care Unav ailable DB JR., TOMASZ Referring Unavailable DB JR., [place] Admitting Unavailable OLEGHE, EFEWONGBE LISE Primary Care Unav ailable DB JR., [place] Referring Unavailable DB JR., [place] Admitting Unavailable OLEGHE, EFEWONGBE LISE Primary Care Unav ailable DB JR., [place] Attending Unavailable LIBERTAD FOSTER Attending Unavailable OLEGHE, EFEWONGBE LISE Primary Care Unav ailable SHERRIE, ULICES GAINES Attending Unava ilable OLEGHE, EFEWONGBE LISE Primary Care Unav ailable OLEGHE, EFEWONGBE LISE Primary Care Unav ailable ARNOLDO CORCORAN Attending Unavailable NIKKI MILLER Attending Unavail able OLEGHE, EFEWONGBE LISE Primary Care Unav ailable LIBERTAD FOSTER Attending Unavailable OLEGHE, EFEWONGBE LISE Primary Care Unav ailable ADAN MOONEY Attending Unavailable OLEGHE, EFEWONGBE LISE Primary Care Unav ailable OLEGHE, EFEWONGBE LISE Primary Care Unav ailable SHERRIE, ULICES GAINES Attending Unava ilable BELKYS AVILA Attending Unavailable OLEGHE, EFEWONGBE LISE Primary Care Unav ailable RADHA MO Attending Unavaila ble OLEGHE, EFEWONGBE LISE Primary Care Unav ailable COREY PRETTY Attending Unavail able OLEGHE, EFEWONGBE LISE Primary Care Unav ailable SHERRIE, ULICES GAINES Attending Unava ilable OLEGHE, EFEWONGBE LISE Primary Care Unav ailable TARDIALLOKAYLA Attending Unavailable OLEGHE, EFEWONGBE LISE Primary Care Unav ailable BELKYS AVILA Attending Unavailable OLEGHE, EFEWONGBE LISE Primary Care Unav ailable SHERRIE, ULICES GAINES Attending Unava ilable OLEGHE, EFEWONGBE LISE Primary Care Unav ailable OLEGHE, EFEWONGBE LISE Primary Care Unav ailable HASAN, RADHA MAKI Attending Unavaila ble FOSTERLIBERTAD Attending Unavailable OLEGHE, EFEWONGBE LISE Primary Care Unav ailable ADAN MOONEY Attending Unavailable OLEGHE, EFEWONGBE LISE Primary Care Unav ailable MALLUISEBENEZER BARBA Attending Unavailable OLEGHE, EFEWONGBE LISE Primary Care Unav ailable HASAN, RADHA MAKI Attending Unavaila ble OLEGHE, EFEWONGBE LISE Primary Care Unav ailable FOSTER, LIBERTAD CLARK Attending Unavailable OLEGHE, EFEWONGBE LISE Primary Care Unav ailable FOSTER, LIBERTAD CLARK Attending Unavailable OLEGHE, EFEWONGBE LISE Primary Care Unav ailable CADEANDRIA Attending Unavailab le OLEGHE, EFEWONGBE LISE Primary Care Unav ailable OLEGHE, EFEWONGBE LISE Primary Care Unav ailable ADAN MOONEY Attending Unavailable OLEGHE, EFEWONGBE LISE Primary Care Unav ailable CADEANDRIA Attending Unavailab le Savannah Britany Referring Unavailable Nuñez, Britany Attending Unavailable Oleghe, Efewongbe Primary Care Unavailable Oleghe, Efewongbe Primary Care Unavailable Greyson Freire Attending Unavailable Greyson Freire Referring Unavailable Oleghe, Efewongbe Primary Care Unavailable Britany Nuñez Referring Unavailable Britany Nuñez Attending Unavailable Oleghe, Efewongbe Primary Care Unavailable Augie Adams Attending Unavailable Oleghe, Efewongbe Primary Care Unavailable Dmitry Pop Attending Unavailable Mollison, Dmitry Referring Unavailable Oleghe, Efewongbe Primary Care Unavailable Yusuf Apple Referring Unavailable Yusuf Apple Attending Unavailable Oleghe, Efewongbe Primary Care Unavailable Nuñez, Britany Referring Unavailable Nuñez, Britany Attending Unavailable Oleghe, Efewongbe Primary Care Unavailable Nuñez, Britany Referring Unavailable Nuñez, Britany Attending Unavailable Nuñez, Britany Referring Unavailable Oleghe, Efewongbe Primary Care Unavailable Iva Greg Attending Unavailable Oleghe, Efewongbe Primary Care Unavailable Nuñez, Britany Referring Unavailable Troy, Greg Attending Unavailable Oleghe, Efewongbe Primary Care Unavailable Nuñez, Britany Referring Unavailable Troy, Greg Attending Unavailable Oleghe, Efewongbe Primary Care Unavailable Ry Enamorado Attending Unavailable Oleghe, Efewongbe Primary Care Unavailable Shaq Laureano Attending Unavailable Oleghe, Efewongbe Primary Care Unavailable León Aiken Attending Unavailable Oleghe, Efewongbe Primary Care Unavailable Sherrie CLINICAL SUPPORT MANAGERHanh Attending Unavailable Sherrie CLINICAL SUPPORT MANAGERHanh Referring Unavailable Oleghe, Efewongbe Primary Care Unavailable Provider, Ed Physician Attending Unavailab le Oleghe, Efewongbe Primary Care Unavailable Cassidy Moore Referring Unavailable Cassidy Moore Attending Unavailable Oleghe, Efewongbe Primary Care Unavailable Nuñez, Britany Referring Unavailable Nuñez, Britany Attending Unavailable Oleghe, Efewongbe Primary Care Unavailable Patrick Gtz Attending Unavailable Oleghe, Efewongbe Referring Unavailable Oleghe, Efewongbe Primary Care Unavailable Nuñez, Britany Consulting Unavailable Troy, Greg Referring Unavailable Troy Greg Attending Unavailable Iva, Greg Consulting Unavailable Oleghe, Efewongbe Primary Care Unavailable Iesha Loya Attending Unavailable Oleghe, Efewongbe Referring Unavailable Oleghe, Efewongbe Primary Care Unavailable Irving Lobato Referring Unavailable Irving Lobato Attending Unavailable Iesha Loya Referring Unavailable Oleghe, Efewongbe Primary Care Unavailable Iesha Loya Attending Unavailable Oleghe, Efewongbe Primary Care Unavailable Nuñez, Britany Attending Unavailable Nuñez, Britany Referring Unavailable Oleghe, Efewongbe Primary Care Unavailable Nuñez, Britany Referring Unavailable Nuñez, Britany Attending Unavailable Oleghe, Efewongbe Primary Care Unavailable Sherrie CLINICAL SUPPORT MANAGERHanh Referring Unavailable Hanh Balderas NP Attending Unavailable Oleghe, Efewongbe Primary Care Unavailable Ry Enamorado Referring Unavailable Ry Enamorado Attending Unavailable Oleghe, Efewongbe Primary Care Unavailable Greg Enrique Attending Unavailable Troy, Greg Referring Unavailable Oleghe, Efewongbe Primary Care Unavailable Drake Guzman Attending Unavailable Oleghe, Efewongbe Primary Care Unavailable Germán Kulkarni Attending Unavailable Oleghe, Efewongbe Primary Care Unavailable Loly Sierra Attending Unavailable Nuñez, Britany Attending Unavailable Nuñez, Britany Referring Unavailable Oleghe, Efewongbe Primary Care Unavailable Oleghe, Efewongbe Primary Care Unavailable Drake Guzman Attending Unavailable Oleghe, Efewongbe Primary Care Unavailable Greg Melgar Attending Unavailable Oleghe, Efewongbe Primary Care Unavailable Chuck Allen Attending Unavailabl e Oleghe, Efewongbe Primary Care Unavailable Chuck Allen Attending Unavailabl e Drake Guzman Attending Unavailable Oleghe, Efewongbe Primary Care Unavailable Oleghe, Efewongbe Primary Care Unavailable Ry Enamorado Attending Unavailable Loly Sierra Attending Unavailable Oleghe, Efewongbe Primary Care Unavailable Chuck Allen Attending Unavailabl e Oleghe, Efewongbe Primary Care Unavailable Oleghe, Efewongbe Primary Care Unavailable Augie Adams Attending Unavailable Augie Adams Referring Unavailable Oleghe, Efewongbe Primary Care Unavailable Ashutosh Barajas Attending Unavailable Oleghe, Efewongbe Primary Care Unavailable Dimple Luis Attending Unavailable Oleghe, Efewongbe Primary Care Unavailable Tere Rivera Referring Unavailable Tere Rivera Attending Unavailable Oleghe, Efewongbe Primary Care Unavailable Ralph Tracy Attending Unavailable Oleghe, Efewongbe Referring Unavailable Nuñez, Britany Consulting Unavailable Oleghe, Efewongbe Primary Care Unavailable Troy, Greg Referring Unavailable Iva, Greg Attending Unavailable Oleghe, Efewongbe Primary Care Unavailable Unñez, Britany Referring Unavailable Nuñez, Britany Attending Unavailable Nuñez, Britany Attending Unavailable Nuñez, Britany Referring Unavailable Oleghe, Efewongbe Primary Care Unavailable Nuñez, Britany Attending Unavailable Nuñez, Britany Referring Unavailable Oleghe, Efewongbe Primary Care Unavailable Oleghe, Efewongbe Primary Care Unavailable Patrick Gtz Attending Unavailable Patrick Gtz Referring Unavailable Oleghe, Efewongbe Attending Unavailable Oleghe, Efewongbe Primary Care Unavailable Oleghe, Efewongbe Referring Unavailable Oleghe, Efewongbe Primary Care Unavailable Irving Lobato Attending Unavailable Luis Alfredo Irving Referring Unavailable Oleghe, Efewongbe Primary Care Unavailable JohnerIesha M Referring Unavailable RuhudsonerIesha M Attending Unavailable Oleghe, Efewongbe Primary Care Unavailable Oleghe, Efewongbe Attending Unavailable Ruhudsoner Iesha M Referring Unavailable Oleghe, Efewongbe Primary Care Unavailable Iesha Loya M Attending Unavailable Oleghe, Efewongbe Primary Care Unavailable Ruhudsoner Iesha M Referring Unavailable RufenerIesha M Attending Unavailable Oleghe, Efewongbe Primary Care Unavailable Ralph Tracy Attending Unavailable Oleghe, Efewongbe Referring Unavailable Nuñez, Britany Referring Unavailable Oleghe, Efewongbe Primary Care Unavailable Greg Enrique Attending Unavailable Oleghe, Efewongbe Primary Care Unavailable Oleghe, Efewongbe Attending Unavailable Oleghe, Efewongbe Referring Unavailable Sigrid Ram Attending Unavailable Oleghe, Efewongbe Primary Care Unavailable Oleghe, Efewongbe Referring Unavailable JohnerVirgilen M Referring Unavailable RuhudsonerVirgilen M Consulting Unavailable Oleghe, Efewongbe Primary Care Unavailable Epifanio Kong Attending Unavailable Iva Greg Attending Unavailable Iva, Greg Referring Unavailable Troy, Greg Consulting Unavailable Oleghe, Efewongbe Primary Care Unavailable Oleghe, Efewongbe Primary Care Unavailable Nuñez, Britany Referring Unavailable Troy, Greg Attending Unavailable Oleghe, Efewongbe Primary Care Unavailable Ry Enamorado Referring Unavailable Greg Enrique Attending Unavailable Oleghe, Efewongbe Primary Care Unavailable Patrick Gtz Attending Unavailable Oleghe, Efewongbe Referring Unavailable Oleghe, Efewongbe Primary Care Unavailable Antonio Albert Attending Unavailable Oleghe, Efewongbe Referring Unavailable Oleghe, Efewongbe Primary Care Unavailable Cassie Krause Attending Unavailable Oleghe, Efewongbe Referring Unavailable Oleghe, Efewongbe Attending Unavailable Oleghe, Efewongbe Primary Care Unavailable Oleghe, Efewongbe Referring Unavailable Britany Nuñez Attending Unavailable Oleghe, Efewongbe Primary Care Unavailable Oleghe, Efewongbe Referring Unavailable Oleghe, Efewongbe Primary Care Unavailable Patrick Gtz Attending Unavailable Oleghe, Efewongbe Referring Unavailable Oleghe, Efewongbe Primary Care Unavailable Oleghe, Efewongbe Referring Unavailable Antonio Albert Attending Unavailable Oleghe, Efewongbe Referring Unavailable Oleghe, Efewongbe Primary Care Unavailable Irving Lobato Attending Unavailable Oleghe, Efewongbe Primary Care Unavailable Oleghe, Efewongbe Referring Unavailable Greyson Freire Attending Unavailable Oleghe, Efewongbe Primary Care Unavailable Clover Handley Attending Unavailable Oleghe, Efewongbe Primary Care Unavailable Sneha Regalado Attending Unavailable Oleghe, Efewongbe Referring Unavailable Oleghe, Efewongbe Primary Care Unavailable Clover Handley Attending Unavailable Oleghe, Efewongbe Primary Care Unavailable Hanh Balderas NP Attending Unavailable Oleghe, Efewongbe Referring Unavailable Oleghe, Efewongbe Primary Care Unavailable Cassidy Moore Attending Unavailable Oleghe, Efewongbe Referring Unavailable Oleghe, Efewongbe Primary Care Unavailable Irving Lobato Attending Unavailable Oleghe, Efewongbe Referring Unavailable Oleghe, Efewongbe Primary Care Unavailable Britany Nuñez Attending Unavailable Oleghe, Efewongbe Referring Unavailable Irving Lobato Attending Unavailable Oleghe, Efewongbe Primary Care Unavailable Oleghe, Efewongbe Referring Unavailable Savannah Britany Attending Unavailable Oleghe, Efewongbe Primary Care Unavailable Oleghe, Efewongbe Referring Unavailable Oleghe, Efewongbe Primary Care Unavailable Jossue Sanchez Attending Unavailable Oleghe, Efewongbe Referring Unavailable Oleghe, Efewongbe Primary Care Unavailable Dmitry Pop Attending Unavailable Oleghe, Efewongbe Referring Unavailable Oleghe, Efewongbe Primary Care Unavailable Patrick Gtz Attending Unavailable Oleghe, Efewongbe Primary Care Unavailable Hanh Balderas NP Attending Unavailable Oleghe, Efewongbe Referring Unavailable Oleghe, Efewongbe Primary Care Unavailable Iesha Loya Attending Unavailable Oleghe, [place] Referring Unavailable Oleghe, Efewongbe Primary Care Unavailable Oleghe, Efewongbe Attending Unavailable Oleghe, Efewongbe Referring Unavailable Nuñez, Britany Referring Unavailable Iva, Greg Attending Unavailable Oleghe, Efewongbe Primary Care Unavailable Oleghe, Efewongbe Primary Care Unavailable Nuñez, Britany Referring Unavailable Iva, Greg Attending Unavailable Nuñez, Britany Referring Unavailable Oleghe, Efewongbe Primary Care Unavailable Iva Greg Attending Unavailable Oleghe, Efewongbe Primary Care Unavailable Nuñez, Britany Referring Unavailable Iva, Greg Attending Unavailable Oleghe, Efewongbe Primary Care Unavailable Nuñez, Britany Referring Unavailable Iva, Greg Attending Unavailable Oleghe, Efewongbe Primary Care Unavailable Nuñez Britany Attending Unavailable Oleghe, Efewongbe Referring Unavailable Oleghe, Efewongbe Primary Care Unavailable Nuñez, Britany Attending Unavailable Oleghe, Efewongbe Referring Unavailable Oleghe, Efewongbe Primary Care Unavailable Oleghe, Efewongbe Attending Unavailable Oleghe, Efewongbe Referring Unavailable Oleghe, Efewongbe Primary Care Unavailable Nuñez, Britany Attending Unavailable Oleghe, Efewongbe Referring Unavailable Oleghe, Efewongbe Primary Care Unavailable Jossue Sanchez Attending Unavailable Oleghe, Efewongbe Primary Care Unavailable Oleghe, Efewongbe Referring Unavailable Patrick Gtz Attending Unavailable Oleghe, [facility]ongbe Primary Care Unavailable Ry Enamorado Referring Unavailable Greg Enrique Attending Unavailable Iesha Loya Referring Unavailable Oleghe, Efewongbe Primary Care Unavailable Iesha Loya Attending Unavailable Allergies Allergy Classification Reported Allergen(s) Allergy Type Date of Onset Reaction(s) Facility (20 sources) ondansetron; Translations: [Zofran] drug allergy 01-10-[address] [facility] (20 sources) penicillin v drug allergy 01-10-[address] [facility] (1 source) ketorolac; Translations: [facility] Latex; Translations: [Latex] Propensity to adverse reactions to drug (disorder) 04-10-20 12 Eruption of skin (disorder), Rash [facility] (20 sources) Penicillins; Translations: [penicillins] Propensity to adverse reactions to drug (disorder) 02-18-20 10 [facility] (7 sources) Acetaminophen Drug Allergy 08-21-19 22 Other [facility] Work Phone: (20 sources) Dicyclomine; Translations: [DICYCLOMINE] Drug Allergy 05-27-19 16 Intolerance, GI Intolerance, Unknown [facility] (20 sources) Escitalopram; Translations: [ESCITALOPRAM] Drug Allergy 02-25-20 16 Headache, Unknown [facility] (20 sources) HYDROcodone; Translations: [HYDROCODONE] Drug Allergy 03-15-20 21 Unknown [facility] (20 sources) Ketorolac; Translations: [KETOROLAC] Drug Allergy 05-27-19 16 [facility] (20 sources) Naproxen; Translations: [NAPROXEN] Drug Allergy 11-10-19 17 Unknown, Other (See Comments), [facility] (20 sources) Ondansetron; Translations: [ONDANSETRON HCL] Drug Allergy 03-02-20 21 Migraine [facility] (20 sources) Promethazine; Translations: [PROMETHAZINE] Drug Allergy 12-28-19 18 Unknown [facility] (20 sources) Sertraline; Translations: [SERTRALINE] Drug Allergy 02-25-20 16 Headache, Other (See Comments) [facility] (4 sources) Acetaminophen / HYDROcodone; Translations: [HYDROCODONE-ACET AMINOPHEN] Drug Allergy 02-25-20 22 Other (See Comments) [facility] Rep[facility] (1 source) Penicillin; Translations: [penicillins] Drug Allergy Eruption of skin (disorder) [facility] (7 sources) Escitalopram; Translations: [ESCITALOPRAM OXALATE] Drug Allergy 02-25-20 16 Other: See Comments [facility] Work Phone: (7 sources) Ondansetron; Translations: [ONDANSETRON HCL (PF)] Drug Allergy 08-17-19 13 Other: See Comments [facility] Work Phone: (7 sources) Promethazine; Translations: [PROMETHAZINE HCL] Drug Allergy 12-28-[address] [facility] Work Phone: (7 sources) Sertraline; Translations: [SERTRALINE HCL] Drug Allergy 02-25-20 16 Other: See Comments [facility] Work Phone: (3 sources) Non-steroidal anti-inflammatory agent; Translations: [NSAIDS (NON-STEROIDAL ANTI-INFLAMMATORY DRUG)] Propensity to adverse reactions to drug 05-29-19 Unknown [facility] (1 source) Dicyclomine Drug Allergy 05-06-20 24 [facility] (1 source) Escitalopram Drug Allergy 10-10-19 25 [facility] (1 source) HYDROcodone Drug Allergy 10-10-19 25 [facility] (1 source) Ketorolac Drug Allergy 10-10-19 25 [facility] (1 source) Naproxen Drug Allergy 10-10-19 25 [facility] (1 source) Sertraline Drug Allergy 10-10-19 25 [facility] (1 source) NSAIDS (Non-Steroidal Anti-Inflamma Drug allergy (disorder) 10-10-19 25 [facility] Rep[facility] Medications Current Medications Medication Drug Class(es) Dates Sig (Normalized) Sig (Original) albuterol 0.83 mg/ml inhalation solution (20 sources) beta2-Adrenergic Agonist Start: 06-27-2022 Start: 07-02-2021 take 2 puff(s) by in halation every four hours as needed albuterol 90 mcg/actuation inhaler Inhale 2 (two) puffs every 4 (four) hours as needed . 6.7 g 07/02/2021 Active Start: 05-25-2021 End: 09-27-2021 Start: 05-25-2021 End: 05-25-2021 amLODIPine 5 mg oral tablet (20 sources) Dihydropyridine Calcium Channel Shawna Start: 06-04-2021 End: 07-25-2023 take 1 tablet by mouth once daily amLODIPine (NORVASC) 5 MG tablet Take 1 (one) tablet (5 mg total) by mouth daily . 12/21/2021 Active 24 hr amphetamine aspartate 3.75 mg / amphetamine sulfate 3.75 mg / dextroamphetamine saccharate 3.75 mg / dextroamphetamine sulfate 3.75 mg extended release oral capsule (20 sources) Central Nervous System Stimulant Start: 08-19-2020 End: 12-23-2020 take 1 capsule by mouth once daily amphetamine-dextr oamphetamine XR (ADDERALL XR) 15 mg 24 hr capsule Indications: ADHD (attention deficit hyperactivity disorder), combined type Take 1 capsule by mouth once daily for 30 days. 30 capsule 10/23/2020 Active Start: 04-28-2020 End: 08-06-2020 take 1 capsule by mouth once daily amphetamine-dextroamphetamine XR (ADDERA LL XR) 15 mg 24 hr capsule Indications: ADHD (attention deficit hyperactivity disorder), combined type Take 1 capsule by mouth once daily for 30 days. 30 capsule 04/28/2020 08/06/2020 Discontinued Comment on above: Take 1 capsule by [facility] once daily for 30 days. azithromycin 250 mg oral tablet (20 sources) Macrolide Antimicrobial Start: 05-28-2024 azithromycin (ZITHROMAX) 250 MG tablet Take 2 pills on day 1, then take 1 pill daily for the next 4 days. . 6 tablet 05/28/2024 Active Start: 03-07-2023 End: 04-19-2023 Start: 06-29-2022 End: 07-14-2022 Start: 09-07-2021 End: 09-27-2021 baclofen 10 mg oral tablet (20 sources) gamma-Aminobutyric Acid-ergic Agonist Start: 10-12-2023 take 2 tablets by mouth three times daily baclofen (LIORESAL) 10 MG tablet Take 2 (two) tablets (20 mg total) by mouth 3 (three) times a day for 5 days . 30 tablet 10/12/2023 Active Start: 08-20-2020 End: 12-23-2020 Bilateral wrist splints for carpal tunnel syndrome (9 sources) Start: 11-18-2021 Bilateral wrist splints for carpal tunnel syndrome Active 0 .Route .MEDSUPPLY 2 November 18, 2021 12:00am As directed 12 hr buPROPion hydrochloride 90 mg / naltrexone hydrochloride 8 mg extended release oral tablet (5 sources) Opioid Antagonist, Aminoketone Start: 10-29-2020 naltrexone-bupro pion (CONTRAVE) 8-90 mg ER tablet Take one tab a day for a week, then one twice a day for a week, then two in Am and one in PM for a week then two twice a day. 120 tablet 5 10/29/2020 Active Comment on above: Take one tab a day f or a week, then one twice a day for a week, then two in Am and one in PM for a week then two twice a day. busPIRone hydrochloride 5 mg oral tablet (1 source) Start: 02-11-2024 take 1 tablet by mouth three times daily busPIRone (BUSPAR) 5 MG tablet Take 1 (one) tablet (5 mg total) by mouth 3 (three) times a day . 90 tablet 2 02/11/2024 Active cephalexin 500 mg oral capsule (1 source) Cephalosporin Antibacterial Start: 02-15-2022 take 500 mg by mouth three times daily Cephalexin Active 500 MG PO THREE TIMES A DAY February 15, 2022 12:00am cetirizine hydrochloride 10 mg oral tablet (6 sources) Histamine-1 Receptor Antagonist Start: 11-18-2021 take 1 tablet by mouth twice daily Cetirizine (Zyrtec) 10 mg tablet Active 10 MG PO TWICE A DAY November 18, 2021 12:00am diazePAM 5 mg oral tablet (20 sources) Benzodiazepine Start: 03-12-2022 take 5 mg by mouth every eight hours Diazepam Active 5 MG PO EVERY 8 HOURS March 12, 2022 12:00am Start: 09-16-2021 End: 11-18-2021 Start: 09-16-2021 End: 11-18-2021 take 2 mg by mouth once Diazepam Discontinued 2 MG P O ONCE September 27, 2021 2:14pm November 18, 2021 3:17pm take one hour prior to MRI Start: 03-02-2021 diazePAM (SALOMON UM) 5 MG tablet Indications: Acute right-sided low back pain with sciatica, sciatica laterality unspecified Take 1 (one) tablet (5 mg total) by mouth 2 (two) times a day as needed for anxiety (Days supply per fill: 3 DAY SUPPLY . 30 tablet 03/02/2021 Active dicyclomine hydrochloride 20 mg oral tablet (1 source) Anticholinergic Start: 06-24-2022 take 1 tablet by mouth four times daily before mealtime dicyclomine (BENTYL) 20 mg tablet Take 1 (one) tablet (20 mg total) by mouth 4 (four) times a day before meals and nightly for 5 days . 20 tablet 06/24/2022 Active DULoxetine 40 mg delayed release oral capsule (5 sources) Serotonin and Norepinephrine Reuptake Inhibitor Start: 10-23-2020 take 1 capsule by mouth once daily DULoxetine 40 mg cpDR Take 1 capsule by mouth once daily. 30 capsule 5 10/23/2020 Active Comment on above: Take 1 capsule by [facility] once daily. fluconazole 150 mg oral tablet (20 sources) Azole Antifungal Start: 09-07-2023 Start: 05-11-2022 End: 05-25-2022 Inhalational Spacing Device (Aerochamber Mv) spacer (15 sources) Start: 02-03-2021 Inhalational S pacing Device (Aerochamber Mv) spacer Active 0 .ROUTE .MEDSUPPLY February 03, 2021 2:16pm As directed Start: 02-03-2021 Inhalational S pacing Device (Aerochamber Mv) spacer Active 0 .ROUTE .MEDSUPPLY February 03, 2021 12:00am As directed meclizine hydrochloride 25 mg oral tablet (20 sources) Antiemetic Start: 08-11-2021 End: 09-05-2023 mupirocin 0.02 mg/mg topical ointment (20 sources) RNA Synthetase Inhibitor Antibacterial Start: 05-09-2024 mupirocin (BACTROBAN) 2 % ointment Apply topically 3 (three) times a day . 22 g 05/09/2024 Active Start: 02-04-2023 End: 04-19-2023 Nebulizers (Aeroneb Go Nebulizer) misc (15 sources) Start: 05-25-2021 Nebulizers (Ae roneb Go Nebulizer) misc Active 0 .ROUTE .MEDSUPPLY May 25, 2021 11:40am As directed Start: 05-25-2021 Nebulizers (Ae roneb Go Nebulizer) muscogee Active 0 .ROUTE .MEDSUPPLY May 25, 2021 1:00am As directed ondansetron 4 mg disintegrating oral tablet (9 sources) Serotonin-3 Receptor Antagonist Start: 02-20-2024 take 1 tablet by mouth every eight hours as needed for nausea ondansetron (ZOFRAN-ODT) 4 MG disintegrating tablet Dissolve 1 (one) tablet (4 mg total) on top of tongue every 8 (eight) hours as needed for nausea . 20 tablet 02/20/2024 Active Start: 07-26-2023 Start: 11-08-2022 12 hr orphenadrine citrate 100 mg extended release oral tablet (1 source) Muscle Relaxant Start: 06-13-2024 End: 06-23-2024 take 1 tablet by mouth twice daily orphenadrine (NORFLEX) 100 mg tablet Take 1 (one) tablet (100 mg total) by mouth 2 (two) times a day for 10 days . 20 tablet 06/13/2024 06/23/2024 Active phentermine hydrochloride 30 mg oral capsule (1 source) Sympathomimetic Amine Anorectic Start: 02-23-2022 take 30 mg by mouth once daily 2 hour(s) after breakfast Phentermine Active 30 MG PO DAILY February 23, 2022 12:00am administer 2 hours after breakfast BMI 37.8 pregabalin 25 mg oral capsule (20 sources) Start: 03-02-2022 take 1 capsule by mouth twice daily Pregabalin (Lyrica) 25 mg capsule Active 25 MG PO TWICE A DAY March 02, 2022 12:00am Start: 04-20-2021 End: 07-15-2021 rivaroxaban 20 mg oral tablet (1 source) Factor Xa Inhibitor Start: 02-09-2024 take 1 tablet by mouth at mealtime Xarelto 20 mg Tab TAKE 1 TABLET BY MOUTH TAKE WITH FOOD 02/09/2024 Active sertraline 50 mg oral tablet (2 sources) Serotonin Reuptake Inhibitor Start: 03-12-2024 take 1 tablet by mouth once daily sertraline (ZOLOFT) 50 MG tablet Take 1 (one) tablet (50 mg total) by mouth daily Start: 03/12/24. 30 tablet 2 03/12/2024 Active Start: 02-11-2024 take 1 tablet by hilario th once daily sertraline (ZOLOFT) 25 MG tablet Take 1 (one) tablet (25 mg total) by mouth daily . 30 tablet 02/11/2024 Active 24 hr venlafaxine 37.5 mg extended release oral capsule (20 sources) Serotonin and Norepinephrine Reuptake Inhibitor Start: 09-02-2022 Start: 03-17-2021 End: 06-08-2021 vitamin e 180 mg oral capsul e (20 sources) Start: 07-07-2021 End: 07-18-2023 take 1 capsule by mouth once dmitry ly vitamin E 200 UNIT capsule Take 1 (one) capsule (200 Units total) by mouth daily . Active (20 sources) Start: 09-11-2023 Start: 04-19-2023 Start: 06-08-2021 End: 08-11-2021 Start: 06-08-2021 End: 07-15-2021 Start: 07-31-2017 End: 08-08-2017 Start: 07-20-2017 End: 07-31-2017 Completed/Discontinued Medications Medication Drug Class(es) Dates Sig (Normalized) Sig (Original) acetaminophen 325 mg / HYDROcodone bitartrate 5 mg oral tablet (20 sources) Opioid Agonist Start: 04-06-2020 End: 04-09-2020 Start: 04-06-2020 End: 04-09-2020 take 1 tablet by mouth every six hours as needed Hydrocodone-Acetaminophen Discontinued 1 TABLET PO EVERY 6 HOURS NEEDED 02 21April 06, 2020 April 09, 2020 1:02am Start: 03-24-2020 End: 03-26-2020 Start: 03-24-2020 End: 03-26-2020 take 1 tablet by mouth every four hours as needed Hydrocodone-Acetaminophen Discontinued 1 TABLET PO EVERY 4 HOURS NEEDED 02 20March 24, 2020 March 26, 2020 1:02am Start: 02-08-2020 End: 02-13-2020 Start: 02-08-2020 End: 02-13-2020 take 1 tablet by mouth every six hours as needed Hydrocodone-Acetaminophen Discontinued 1 TABLET PO EVERY 6 HOURS NEEDED 08 10February 08, 2020 February 13, 2020 12:02am Start: 04-25-2019 End: 05-08-2019 Start: 04-25-2019 End: 05-08-2019 take 1 tablet by mouth every four hours as needed Hydrocodone-Acetaminophen Discontinued 1 TABLET PO EVERY 4 HOURS NEEDED 02 20April 25, 2019 May 08, 2019 1:09am acetaminophen 325 mg / oxyCO DONE hydrochloride 5 mg oral tablet (20 sources) Opioid Agonist Start: 07-26-2023 End: 09-05-2023 Start: 06-29-2023 End: 07-18-2023 Start: 02-22-2023 End: 02-22-2023 Start: 02-22-2023 End: 02-22-2023 Start: 02-04-2023 End: 02-27-2023 Start: 11-20-2022 Start: 11-08-2022 Start: 08-26-2022 End: 09-02-2022 Start: 08-26-2022 End: 09-02-2022 take 1 tablet by mouth every eight hours Oxycodone-Acetaminophen (Percocet) 5-325 mg tablet Discontinued 1 TABLET PO Q8H 10 August 26, 2022 September 02, 2022 10:37am Start: 05-25-2022 End: 05-28-2022 Start: 05-25-2022 End: 05-28-2022 take 2 tablets by mouth every four hours Oxycodone-Acetaminophen (Percocet) 5-325 mg tablet Discontinued 2 TABLET PO Q4H 36 May 25, 2022 May 28, 2022 1:11am Start: 04-27-2022 End: 04-30-2022 Start: 04-27-2022 End: 04-30-2022 take 1 tablet by mouth every six hours Oxycodone-Acetaminophen (Percocet) 5-325 mg tablet Discontinued 1 TABLET PO EVERY 6 HOURS 06 08April 27, 2022 April 30, 2022 1:09am Start: 04-20-2022 End: 04-23-2022 Start: 04-20-2022 End: 04-23-2022 take 1 tablet by mouth every four hours Oxycodone-Acetaminophen (Percocet) 5-325 mg tablet Discontinued 1 TABLET PO Q4H 06 08April 20, 2022 April 23, 2022 1:10am Start: 03-22-2022 End: 04-14-2022 Start: 03-22-2022 End: 04-14-2022 take 1 tablet by mouth every six hours Oxycodone-Acetaminophen (Percocet) 5-325 mg tablet Discontinued 1 TABLET PO EVERY 6 HOURS 16 12March 31, 2022 April 05, 2022 11:08am Start: 03-04-2022 take 1 tablet by hilario th every six hours as needed Oxycodone-Acetaminophen Active 1 TABLET PO EVERY 6 HOURS NEEDED 04 23March 04, 2022 Start: 02-15-2022 End: 02-18-2022 take 1 tablet by mouth every six hours Oxycodone-Acetaminophen (Percocet) 5-325 mg tablet Discontinued 1 TABLET PO EVERY 6 HOURS 04 23February 15, 2022 February 18, 2022 4:58pm Start: 02-08-2022 End: 02-15-2022 take 1 tablet by mouth every eight hours Oxycodone-Acetaminophen (Percocet) 5-325 mg tablet Discontinued 1 TABLET PO Q8H February 08, 2022 12:00am February 15, 2022 9:38am Start: 06-03-2021 End: 02-18-2022 Start: 06-03-2021 End: 02-08-2022 take 1 tablet by mouth twice daily Oxycodone-Acetaminophen Discontinued 1 TABLET PO TWICE A DAY June 03, 2021 1:00am February 08, 2022 1:56pm Start: 05-03-2021 End: 05-07-2021 Start: 05-03-2021 End: 05-07-2021 take 1 tablet by mouth every eight hours Oxycodone-Acetaminophen Discontinued 1 TABLET PO Q8H 04 24May 03, 2021 May 07, 2021 1:02am Start: 02-26-2021 End: 03-04-2021 take 1 tablet by mouth every six hours Oxycodone-Acetaminophen (Percocet) 5-325 mg tablet Discontinued 1 TABLET PO EVERY 6 HOURS 02 21February 26, 2021 March 04, 2021 10:53am Start: 02-19-2021 End: 03-04-2021 Start: 02-19-2021 End: 02-26-2021 take 1 tablet by mouth twice daily Oxycodone-Acetaminophen Discontinued 1 TABLET PO TWICE A DAY February 19, 2021 February 26, 2021 12:01am albuterol 0.833 mg/ml / ipratropium bromide 0.167 mg/ml inhalation solution (20 sources) Anticholinergic, beta2-Adrenergic Agonist Start: 09-07-2021 End: 09-12-2021 Start: 09-07-2021 End: 09-12-2021 take 1 mL by inhalation every four hours Ipratropium-Albuterol Discontinued 3 ML INHALATION Q4H 90 5 September 07, 2021 12:00am September 12, 2021 12:04am ascorbic acid 500 mg oral ca psule (20 sources) Vitamin C Start: 06-08-2021 End: 07-15-2021 Start: 06-08-2021 End: 07-15-2021 Ascorbic Acid (Vitamin C) Di scontinued MG PO June 08, 2021 1:00am July 15, 2021 11:05am Ascorbic Acid-Elderberry Fru it (Airborne (Elderberry)) 100-50 mg tablet,chewable (20 sources) Start: 06-08-2021 End: 07-15-2021 Ascorbic Acid-Elderberry Fru it (Airborne (Elderberry)) 100-50 mg tablet,chewable Discontinued TABLET PO June 08, 2021 10:44am July 15, 2021 11:05am Start: 06-08-2021 End: 07-15-2021 Ascorbic Acid-Elderberry Fru it (Airborne (Elderberry)) 100-50 mg tablet,chewable Discontinued TABLET PO June 08, 2021 12:00am July 15, 2021 10:05am Start: 06-08-2021 End: 07-15-2021 Ascorbic Acid-Elderberry Fru it (Airborne (Elderberry)) 100-50 mg tablet,chewable Discontinued TABLET PO June 08, 2021 1:00am July 15, 2021 11:05am benzonatate 200 mg oral caps ule (20 sources) Non-narcotic Antitussive Start: 10-13-2021 End: 11-18-2021 Start: 01-23-2021 End: 02-10-20[address] SUP [address] (2 sources) Start: 02-06-2017 End: 02-13-2017 FREESTYLE FREEDOM LITE w/Dev ice KIT Check blood sugar fast and post prandial BLOOD GLUCOSE MONITORING SUPPL [id number] Cassidy Moore MD Start: 02-06-2017 End: 02-13-2017 FREESTYLE FREEDOM LITE w/Dev ice KIT Check blood sugar fast and post prandial BLOOD GLUCOSE MONITORING SUPPL [id number] Cassidy Moore MD BLOOD GLUCOSE MONITORING SUP PL (13 sources) Start: 02-06-2017 End: 02-13-2017 FREESTYLE FREEDOM LITE w/Dev ice KIT Check blood sugar fast and post prandial BLOOD GLUCOSE MONITORING SUPPL [id number] Cassidy Moore MD Start: 02-06-2017 End: 02-13-2017 FREESTYLE FREEDOM LITE w/Dev ice KIT Check blood sugar fast and post prandial BLOOD GLUCOSE MONITORING SUPPL [id number] Cassidy Moore MD BLOOD GLUCOSE MONITORING SUPPL (2 sources) Start: 02-06-2017 End: 02-13-2017 FREESTYLE FREEDOM LITE w/Device KIT Check blood sugar fast and post prandial BLOOD GLUCOSE MONITORING SUPPL [id number] Cassidy Moore MD cefdinir 300 mg oral capsule (3 sources) Cephalosporin Antibacterial Start: 09-08-2023 End: 09-14-2023 cholecalciferol 1.25 mg oral capsule (20 sources) Vitamin D Start: 05-30-2022 End: 09-02-2022 Start: 06-08-2021 End: 02-08-2022 clindamycin 300 mg oral caps ule (14 sources) Lincosamide Antibacterial Start: 07-13-2023 End: 07-20-2023 Start: 06-30-2023 End: 07-07-2023 clobetasol propionate 0.5 mg /ml topical cream (20 sources) Corticosteroid Start: 11-18-2021 End: 02-08-2022 Start: 11-18-2021 End: 02-08-2022 Clobetasol Discontinued 1 AP PLIC TOPICAL TWICE A DAY November 18, 2021 12:00am February 08, 2022 1:56pm colestipol hydrochloride 100 0 mg oral tablet (13 sources) Bile Acid Sequestrant Start: 04-10-2023 End: 05-25-2023 cyclobenzaprine hydrochlorid e 10 mg oral tablet (20 sources) Muscle Relaxant Start: 06-29-2023 End: 07-18-2023 Start: 11-28-2022 End: 12-08-2022 Start: 05-03-2021 End: 06-08-2021 Start: 02-26-2021 End: 04-20-2021 Start: 06-21-2019 End: 07-03-2019 Desogestrel-Ethinyl Estradiol (20 sources) Progestin, Estrogen Start: 04-03-2020 End: 05-20-2020 Desogestrel-Ethinyl Estradiol (Apri) 0.15-0.03 mg tablet Discontinued 1 TABLET PO daily April 03, 2020 2:43pm May 20, 2020 8:23am Start: 04-03-2020 End: 05-20-2020 Start: 04-03-2020 End: 05-20-2020 Desogestrel-Ethinyl Estradio l (Apri) 0.15-0.03 mg tablet Discontinued 1 TABLET PO daily April 03, 2020 12:00am May 20, 2020 7:23am Start: 04-03-2020 End: 05-20-2020 Desogestrel-Ethinyl Estradio l (Apri) 0.15-0.03 mg tablet Discontinued 1 TABLET PO daily April 03, 2020 1:00am May 20, 2020 8:23am doxycycline hyclate 100 mg o ral capsule (20 sources) Tetracycline-class Drug Start: 09-14-2023 End: 09-24-2023 Start: 12-15-2022 End: 12-22-2022 Start: 06-25-2020 End: 07-05-2020 take 1 tablet by mouth twice daily doxycycline monohydrate 100 mg tablet Indications: Bronchitis Take 1 tablet by mouth twice daily for 10 days. 20 tablet 06/25/2020 07/05/2020 elagolix 200 mg oral tablet (20 sources) Start: 12-29-2022 End: 01-16-2023 GLUCOSE BLOOD (2 sources) Start: 02-06-2017 End: 02-13-2017 FREESTYLE LITE TEST STRP Susan ck Blood Sugar fasting and post prandial GLUCOSE BLOOD [id number] Cassidy Moore MD Start: 02-06-2017 End: 02-13-2017 FREESTYLE LITE TEST STRP Susan ck Blood Sugar fasting and post prandial GLUCOSE BLOOD [id number] Cassidy Moore MD GLUCOSE BLOOD (13 sources) Start: 02-06-2017 End: 02-13-2017 FREESTYLE LITE TEST STRP Susan ck Blood Sugar fasting and post prandial GLUCOSE BLOOD [id number] Cassidy Moore MD Start: 02-06-2017 End: 02-13-2017 FREESTYLE LITE TEST STRP Susan ck Blood Sugar fasting and post prandial GLUCOSE BLOOD [id number] Cassidy Moore MD GLUCOSE BLOOD (2 sources) Start: 02-06-2017 End: 02-13-2017 FREESTYLE LITE TEST STRP Check Blood Sugar fasting and post prandial GLUCOSE BLOOD [id number] Cassidy Moore MD hydrocortisone 25 mg/ml topical cream (20 sources) Corticosteroid Start: 01-16-2023 End: 04-19-2023 hydrOXYzine pamoate 50 mg oral capsule (20 sources) Antihistamine Start: 06-28-2021 End: 05-30-2022 Start: 12-28-2020 End: 06-28-2021 Start: 10-14-2020 End: 12-23-2020 Comment on above: hydroxyzine pamoate 25 mg capsule Take 25 mg BY MOUTH THREE TIMES DAILY As Needed for anxiety hyoscyamine sulfate 0.125 mg oral tablet (20 sources) Start: 05-25-2023 End: 07-18-2023 Start: 08-18-2021 End: 09-27-2021 ibuprofen 600 mg oral tablet (20 sources) Nonsteroidal Anti-inflammatory Drug Start: 08-27-2017 End: 10-06-2017 ketoprofen 75 mg oral capsule (20 sources) Nonsteroidal Anti-inflammatory Drug Start: 02-10-2021 End: 05-17-2023 Start: 07-03-2019 End: 02-10-2021 Start: 07-03-2019 End: 02-10-2021 take 75 mg by mouth every six hours Ketoprofen Discontinued 75 MG PO EVERY 6 HOURS August 26, 2019 8:44am February 09, 2021 11:12am Start: 07-03-2019 End: 02-10-2021 Ketoprofen Discontinued 75 M G PO EVERY 6 HOURS February 09, 2021 11:10am February 10, 2021 3:05pm 1 cap PO at on set of headache max of 3 in 24 hours, max 20 per month Start: 05-01-2014 End: 10-23-2020 ketoprofen (ORUDIS) 75 mg ca psule Indications: Migraine without aura and with status migrainosus, not intractable TAKE ONE CAPSULE AT ONSET OF HEADACHE MAX of 3 tabs in 24 hrs at 8 hrs apart. Max OF 20 CAPS PER MONTH 100 capsule 04/28/2020 10/23/2020 Discontinued Comment on above: TAKE ONE CAPSULE AT ONSET OF HEADACHE MAX of 3 tabs in 24 hrs at 8 hrs apart. Max OF 20 CAPS PER MONTH levoFLOXacin 500 mg oral tab let (20 sources) Quinolone Antimicrobial Start: 10-13-2021 End: 11-18-2021 levothyroxine sodium 0.137 m g oral tablet (20 sources) l-Thyroxine Start: 10-15-2021 End: 12-08-2021 Start: 06-10-2021 End: 10-15-2021 Start: 01-27-2021 End: 06-10-2021 Start: 10-23-2020 End: 07-25-2023 Start: 08-26-2019 End: 01-27-2021 Start: 08-26-2019 End: 01-27-2021 take 2 tablets by mouth every month Levothyroxine Discontinued 112 MCG PO DAILY August 06, 2020 2:49pm October 14, 2020 6:51pm Take 2 tablets on the and of the month Start: 08-26-2019 End: 01-27-2021 take 2 tablets by mouth every month Levothyroxine Discontinued 137 MCG PO DAILY October 14, 2020 6:51pm January 27, 2021 10:06am Take 2 tablets on the and of the month Start: 11-26-2017 End: 08-26-2019 Start: 11-26-2017 End: 08-26-2019 take 112 ug by mouth once daily Levothyroxine Disconti nued 112 MCG PO DAILY June 19, 2018 2:51pm August 26, 2019 8:54am Comment on above: Take 1 tablet by hilario th daily before breakfast. Takes two tabs first and third week of month per endo linezolid 600 mg oral tablet (20 sources) Oxazolidinone Antibacterial Start: 04-18-2022 End: 05-02-2022 medroxyPROGESTERone acetate 10 mg oral tablet (20 sources) Progestin Start: 09-12-2019 End: 09-22-2019 Start: 08-14-2019 End: 08-26-2019 Start: 07-18-2019 End: 07-28-2019 Start: 07-03-2019 End: 07-13-2019 Start: 04-09-2019 End: 06-12-2019 Start: 04-09-2019 End: 06-12-2019 Medroxyprogesterone Disconti nued 10 MG PO .COMPLEX 45 April 09, 2019 1:00am June 12, 2019 10:17am 10 mg PO tid until bleeding stops X 24 hour then bid to finish Rx; Start: 03-23-2018 End: 06-19-2018 metaxalone 800 mg oral table t (20 sources) Start: 08-25-2021 End: 09-27-2021 methocarbamol 500 mg oral ta blet (20 sources) Muscle Relaxant Start: 12-25-2022 End: 01-16-2023 Start: 04-22-2022 End: 05-06-2022 Methylprednisolone (2 sources) Corticosteroid Start: 09-14-2023 End: 09-20-2023 metroNIDAZOLE 500 mg oral ta blet (20 sources) Nitroimidazole Antimicrobial Start: 04-14-2022 End: 05-04-2022 Start: 01-15-2019 End: 06-12-2019 Start: 01-15-2019 End: 06-12-2019 take 500 mg by mouth every eight hours Metronidazole Discontinued 500 MG PO Q8H January 15, 2019 12:00am June 12, 2019 10:19am naproxen 250 mg oral tablet (20 sources) Nonsteroidal Anti-inflammatory Drug Start: 08-26-2017 End: 10-06-2017 Start: 08-26-2017 End: 10-06-2017 take 250-500 mg by mouth every eight hours as needed Naproxen Discontinued 250 - 500 MG PO EVERY 8 HOURS NEEDED August 26, 2017 12:00am October 06, 2017 11:43am Nicotine (20 sources) Cholinergic Nicotinic Agonist Start: 06-03-2021 End: 09-27-2021 apply 1 dose transdermal route once daily, then apply 1 dose transdermal route once daily Nicotine Discontinued 0 TD .[facility] June 03, 2021 9:41am September 27, 2021 2:15pm apply 1-21 mg NICOTINE PATCH daily for 28 days; follow with 1-14 mg PATCH daily for 14 days, then 1-7mg PATCH daily for 14 days transdermal Start: 06-03-2021 apply 1 dose transde rmal route once daily, then apply 1 dose transdermal route once daily Nicotine Active 0 TD .[facility] June 03, 2021 9:41am apply 1-21 mg NICOTINE PATCH daily for 28 days; follow with 1-14 mg PATCH daily for 14 days, then 1-7mg PATCH daily for 14 days transdermal Start: 06-03-2021 End: 09-27-2021 Start: 06-03-2021 End: 09-27-2021 apply 1 dose transdermal route once daily, then apply 1 dose transdermal route once daily Nicotine Discontinued 0 TD .[facility] June 03, 2021 12:00am September 27, 2021 1:15pm apply 1-21 mg NICOTINE PATCH daily for 28 days; follow with 1-14 mg PATCH daily for 14 days, then 1-7mg PATCH daily for 14 days transdermal Start: 06-03-2021 End: 09-27-2021 apply 1 dose transdermal route once daily, then apply 1 dose transdermal route once daily Nicotine Discontinued 0 TD .[facility] June 03, 2021 1:00am September 27, 2021 2:15pm apply 1-21 mg NICOTINE PATCH daily for 28 days; follow with 1-14 mg PATCH daily for 14 days, then 1-7mg PATCH daily for 14 days transdermal nitrofurantoin, macrocrystals 25 mg / nitrofurantoin, monohydrate 75 mg oral capsule (20 sources) Nitrofuran Antibacterial Start: 04-05-2022 End: 04-12-2022 Drug Treatment Unknown - unknown (1 source) No information available. norethindrone acetate 5 mg oral tablet (20 sources) Start: 12-08-2022 End: 01-16-2023 Start: 03-15-2021 End: 06-03-2021 take 1 tablet by mouth once daily Norethindrone (Contraceptive) (Kay) 0.35 mg tablet Discontinued 0.35 MG PO daily 84 March 15, 2021 12:00am June 03, 2021 9:10am start day 1 of menstrual cycle Start: 03-15-2021 End: 06-03-2021 nystatin [id number] unt/ml topic al cream (20 sources) Polyene Antifungal Start: 05-11-2022 End: 05-25-2022 Start: 05-11-2022 End: 05-25-2022 Nystatin Discontinued 1 APPL IC TOPICAL TWICE A DAY May 11, 2022 1:00am May 25, 2022 5:21pm apply to affected area twice a day Start: 04-20-2022 End: 05-04-2022 Start: 04-20-2022 End: 05-04-2022 take 1 mL by mouth once daily Nystatin Discontinued 4 ML PO DAILY 56 April 20, 2022 1:00am May 04, 2022 1:03am swish and swallow (hold in mouth as long as possible) Start: 10-23-2020 End: 12-23-2020 Start: 10-23-2020 End: 12-23-2020 Nystatin Discontinued 1 APPL IC TOPICAL TWICE A DAY October 23, 2020 12:00am December 23, 2020 1:20pm Start: 07-21-2019 End: 08-26-2019 Start: 07-21-2019 End: 08-26-2019 take 1 mL by mouth four times daily Nystatin Discontinued 5 ML PO 4 TIMES DAILY July 21, 2019 1:00am August 26, 2019 8:45am swish and swallow Start: 05-10-2018 End: 06-19-2018 Start: 05-10-2018 End: 06-19-2018 Nystatin (Nystop) 100,000 un it/gram powder Discontinued 1 APPLIC TOPICAL TWICE A DAY May 10, 2018 1:00am June 19, 2018 2:52pm omeprazole 40 mg delayed rel ease oral capsule (20 sources) Proton Pump Inhibitor Start: 08-14-2019 End: 08-26-2019 oxyCODONE hydrochloride 5 mg oral tablet (20 sources) Opioid Agonist Start: 02-14-2023 End: 02-22-2023 Start: 05-09-2022 End: 05-10-2022 Start: 04-27-2022 End: 04-30-2022 Start: 04-20-2022 End: 04-23-2022 Start: 04-20-2022 End: 04-23-2022 take 5 mg by mouth twice daily Oxycodone Discontinued 5 MG PO TWICE A DAY 06 08April 20, 2022 April 23, 2022 1:10am Start: 04-14-2022 End: 05-04-2022 polyethylene glycol 3350 170 00 mg powder for oral solution (20 sources) Osmotic Laxative Start: 11-28-2019 End: 12-03-2019 predniSONE 20 mg oral tablet (20 sources) Start: 06-29-2023 End: 07-18-2023 Start: 03-07-2023 End: 04-19-2023 Start: 06-29-2022 End: 07-14-2022 Start: 10-29-2021 End: 11-10-2021 Start: 10-15-2021 End: 11-18-2021 Start: 02-03-2021 End: 02-10-2021 Start: 02-03-2021 End: 02-10-2021 take 60 mg by mouth once daily Prednisone Discontinued 60 MG PO DAILY February 03, 2021 12:00am February 10, 2021 2:38pm prochlorperazine 10 mg oral tablet (20 sources) Phenothiazine Start: 07-03-2019 End: 08-09-2023 Start: 05-01-2014 Compazine 1 ta b, Oral, PRN Nausea Start Date: 05/01/14 Status: Ordered take 1 tablet by hilario th every six hours as needed for nausea prochlorperazine (COMPAZINE) 10 MG tablet Take 1 (one) tablet (10 mg total) by mouth every 6 (six) hours as needed for nausea . Active Comment on above: TAKE ONE TABLET BY M OUTH WITH KETOPROFEN promethazine hydrochloride 12.5 mg oral tablet (20 sources) Phenothiazine Start: 01-10-20 take 1 tablet by mouth every six hours as needed PROMETHAZINE HCL 12.5 MG TABS 1 po q 6 hours as needed PROMETHAZINE HCL [id number] Cassidy Moore MD Yfolriuda-Uuzibafus-Lx rethindr (17 sources) Start: 02-15-20 End: 04-19-20 Start: 02-14-2023 rho(d) immune globulin, human 1500 unt prefilled syringe (6 sources) Human Immunoglobulin G Start: 06-15-2017 End: 06-15-2017 inject 1500 [IU] by intramuscular injection once RhoGAM Ultra-Filtered PLUS (rho(D) immune globulin) 1,500 unit (300 mcg) Discontinued 1500 UNIT IM ONCE June 15, 2017 5:34pm June 15, 2017 5:38pm sulfamethoxazole 800 mg / trimethoprim 160 mg oral tablet (20 sources) Dihydrofolate Reductase Inhibitor Antibacterial, Sulfonamide Antimicrobial Start: 04-14-2022 End: 04-20-2022 Start: 04-14-2022 End: 04-20-2022 take 1 tablet by mouth twice daily Sulfamethoxazole-Trimethoprim (Bactrim D s) 800-160 mg tablet Discontinued 1 TABLET PO TWICE A DAY April 14, 2022 1:00am April 20, 2022 12:47pm Start: 07-16-2021 End: 07-26-2021 Start: 07-16-2021 End: 07-26-2021 take 1 tablet by mouth twice daily Sulfamethoxazole-Trimethoprim (Bactrim D s) 800-160 mg tablet Discontinued 1 TABLET PO TWICE A DAY 10 03July 16, 2021 1:00am July 26, 2021 1:03am tranexamic acid 650 mg oral tablet (20 sources) Antifibrinolytic Agent Start: 09-09-2021 End: 09-27-2021 triamcinolone acetonide 0.00 025 mg/mg topical ointment (7 sources) Corticosteroid Start: 07-18-2023 End: 09-05-2023 ursodiol 300 mg oral capsule (20 sources) Bile Acid Start: 07-07-2021 End: 08-22-2023 ursodioL (ACTIGA LL) 250 mg tablet Take 1 (one) tablet (250 mg total) by mouth . Active vortioxetine 10 mg oral tablet (20 sources) Start: 06-28-2021 End: 08-11-2021 Zinc (20 sources) Start: 06-08-2021 End: 08-11-2021 take 50 mg by mouth once daily Zinc Discontinued 50 MG PO DAILY June 08, 2021 10:43am August 11, 2021 3:24pm Start: 06-08-2021 End: 08-11-2021 take 50 mg by mouth once daily Zinc Discontinued 50 MG PO DAILY June 08, 2021 12:00am August 11, 2021 2:24pm Start: 06-08-2021 End: 08-11-2021 take 50 mg by mouth once daily Zinc Discontinued 50 MG PO DAILY June 08, 2021 1:00am August 11, 2021 3:24pm Problems Active Problems Problem Classification Problem Date Documented Da te Episodic/Chronic Abdominal hernia (20 sources) Umbilical hernia; Translations: [Umbilical hernia without obstruction or gangrene] 02-23-2022 Episodic Abdominal pain (20 sources) Right upper quadrant pain; Translations: [Right upper quadrant pain] Onset: 3 Episodic Acute bronchitis (20 sources) Acute bronchitis; Translations: [Acute bronchitis, unspecified] Onset: 5 Episodic Administrative/social admission (4 sources) Multigravida; Translations: [Tobacco abuse counseling] Onset: 7 04-19-2017 Episodic Allergic reactions (20 sources) Irritant contact dermatitis due to plant; Translations: [Irritant contact dermatitis due to plants, except food] Episodic Anxiety disorders (20 sources) Generalized anxiety disorder; Translations: [Generalized anxiety disorder] Onset: 9 Chronic Attention-deficit, conduct, and disruptive behavior disorders (20 sources) Attention deficit hyperactivity disorder; Translations: [Attention-deficit hyperactivity disorder, unspecified type] 08-25-2021 Chronic Attention-deficit, conduct, and disruptive behavior disorders (8 sources) Attention-deficit hyperactivity disorder, unspecified type; Translations: [Attention deficit disorder with hyperactivity] Chronic Attention-deficit, conduct, and disruptive behavior disorders (6 sources) Attention deficit hyperactivity disorder, combined type; Translations: [Attention-deficit hyperactivity disorder, combined type] Onset: 9 08-26-2019 Chronic Attention-deficit, conduct, and disruptive behavior disorders (1 source) Attention-deficit hyperactivity disorder, predominantly inattentive type; Translations: [Attention-deficit hyperactivity disorder, predominantly inattentive type] Onset: 4 Chronic Bacterial infection; unspecified site (20 sources) Bacteria present; Translations: [Streptococcus, group B, as the cause of diseases classified elsewhere] 10-06-2017 Episodic Cardiac dysrhythmias (20 sources) Ectopic beats; Translations: [Other premature depolarization] Chronic Cardiac dysrhythmias (20 sources) Palpitations; Translations: [Palpitations] Episodic Complications of surgical procedures or medical care (20 sources) Postoperative seroma; Translations: [Postoperative seroma] Episodic Conditions associated with dizziness or vertigo (20 sources) Vertigo; Translations: [Dizziness and giddiness] Episodic Diabetes mellitus without complication (20 sources) Type 2 diabetes mellitus; Translations: [Type 2 diabetes mellitus without complications] Chronic Diabetes mellitus without complication (6 sources) High hemoglobin A1c level; Translations: [Other abnormal glucose] Onset: 1 08-12-2020 Episodic Diabetes or abnormal glucose tolerance complicating ; childbirth; or the puerperium (20 sources) Gestational diabetes mellitus; Translations: [Gestational diabetes mellitus in , diet controlled] 10-06-2017 Episodic Diseases of white blood cells (20 sources) Neutropenia; Translations: [Neutropenia, unspecified] 06-10-2022 Chronic Disorders of teeth and jaw (20 sources) Toothache; Translations: [Other specified disorders of teeth and supporting structures] 01-16-2019 Episodic Disorders usually diagnosed in infancy, childhood, or adolescence (1 source) Other specified behavioral and emotional disorders with onset usually occurring in childhood and adolescence; Translations: [Other specified behavioral and emotional disorders with onset usually occurring in childhood and adolescence] Onset: 4 Chronic Essential hypertension (20 sources) Essential hypertension; Translations: [Essential (primary) hypertension] Onset: 5 Chronic Fever of unknown origin (1 source) Fever, unspecified; Translations: [Fever, unspecified] Onset: 5 Episodic Gastrointestinal hemorrhage (20 sources) Hematochezia; Translations: [Melena] Onset: 4 Episodic Headache; including migraine (20 sources) Migraine without aura; Translations: [Migraine without aura, not intractable, without status migrainosus] Onset: 7 02-15-2022 Chronic Headache; including migraine (3 sources) Headache; including migraine; Translations: [Headache, unspecified] Onset: 5 Hepatitis (20 sources) Nonalcoholic steatohepatitis; Translations: [Nonalcoholic steatohepatitis (MARCELINO)] Chronic Immunity disorders (20 sources) Immunoglobulin A deficiency; 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-19-2022 Chronic Immunizations and screening for infectious disease (10 sources) Contact with and (suspected) exposure to infections with a predominantly sexual mode of transmission; Translations: [Contact with or exposure to venereal diseases] 12-15-2022 Episodic Inflammatory diseases of female pelvic organs (20 sources) Adhesion of pelvis; Translations: [Female pelvic peritoneal adhesions (postinfective)] 03-31-2023 Episodic Lymphadenitis (20 sources) Cervical lymphadenopathy; Translations: [Localized enlarged lymph nodes] Episodic Malaise and fatigue (20 sources) Fatigue; Translations: [Other fatigue] Episodic Melanomas of skin (20 sources) H/O Malignant melanoma; Translations: [Personal history of malignant melanoma of skin] Episodic Menopausal disorders (20 sources) Menopausal syndrome; Translations: [Menopausal and female climacteric states] 04-06-2023 Chronic Menstrual disorders (20 sources) Irregular periods; Translations: [Menometrorrhagia] Onset: 7 Resolved: 7 01-09-2017 Chronic Mood disorders (6 sources) Depressive disorder; Translations: [Depression] Onset: 6 05-11-2016 Chronic Mycoses (20 sources) Candidiasis of mouth; Translations: [Candidal stomatitis] 07-22-2019 Episodic Nausea and vomiting (1 source) Nausea; Translations: [Nausea] Onset: 3 Episodic Nonmalignant breast conditions (20 sources) Pain of breast; Translations: [Mastodynia] 04-06-2023 Episodic Nonspecific chest pain (20 sources) Chest wall pain; Translations: [Other chest pain] Onset: 5 Episodic Normal and/or delivery (20 sources) Normal ; Translations: [Encounter for supervision of normal , unspecified, first trimester] Onset: 7 01-11-2017 Episodic Nutritional deficiencies (20 sources) Vitamin D deficiency; Translations: [Vitamin D deficiency, unspecified] Chronic Open wounds of head; neck; and trunk (20 sources) Open wound of face; Translations: [Unspecified open wound of left cheek and temporomandibular area, sequela] 02-15-2022 Episodic Other aftercare (17 sources) Follow-up status; Translations: [Encounter for other orthopedic aftercare] 02-22-2023 Episodic Other aftercare (20 sources) Encounter for other orthopedic aftercare; Translations: [Unspecified orthopedic aftercare] 02-22-2023 Episodic Other circulatory disease (20 sources) H/O: hypertension; Translations: [Personal history of other diseases of the circulatory system] 04-16-2022 Episodic Other circulatory disease (11 sources) Personal history of other diseases of the circulatory system; Translations: [Personal history of other diseases of circulatory system] Episodic Other complications of (20 sources) RhD negative; Translations: [Other specified related conditions, unspecified trimester] 10-06-2017 Episodic Other connective tissue disease (20 sources) Coracoid impingement; Translations: [Impingement syndrome of left shoulder] 02-15-2022 Episodic Other connective tissue disease (20 sources) Spasm; Translations: [Other muscle spasm] 09-02-2021 Episodic Other connective tissue disease (20 sources) Fibromyalgia; Translations: [Fibromyalgia] 03-20-2022 Episodic Other connective tissue disease (20 sources) Fibromyalgia; Translations: [Myalgia and myositis, unspecified] Episodic Other connective tissue disease (20 sources) Pain in calf; Translations: [Pain in left lower leg] 04-26-2022 Episodic Other connective tissue disease (20 sources) Pain of right lower leg; Translations: [Pain in right lower leg] 04-26-2022 Episodic Other connective tissue disease (20 sources) Pain in upper limb; Translations: [Pain in arm, unspecified] 12-25-2022 Episodic Other connective tissue disease (7 sources) Bilateral calf pain; Translations: [Pain in right lower leg] 07-18-2023 Episodic Other connective tissue disease (2 sources) Plantar fasciitis; Translations: [Plantar fascial fibromatosis] 06-21-2024 Episodic Other connective tissue disease (2 sources) Pain in right foot; Translations: [Pain in right foot] Onset: 5 Episodic Other connective tissue disease (2 sources) Pain in left foot; Translations: [Pain in left foot] Onset: 5 Episodic Other connective tissue disease (3 sources) Pain in right leg; Translations: [Pain in right leg] Onset: 5 Episodic Other connective tissue disease (1 source) Pain in right thigh; Translations: [Pain in right thigh] Onset: 5 Episodic Other connective tissue disease (1 source) Pain in left thigh; Translations: [Pain in left thigh] Onset: 5 Episodic Other diseases of veins and lymphatics (19 sources) Lymphedema of bilateral lower limbs; Translations: [Lymphedema, not elsewhere classified] 02-08-2023 Chronic Other ear and sense organ disorders (20 sources) Tinnitus; Translations: [Tinnitus, unspecified ear] 08-11-2021 Episodic Other ear and sense organ disorders (7 sources) Tinnitus, unspecified ear; Translations: [Tinnitus, unspecified] Episodic Other ear and sense organ disorders (5 sources) Other specified disorders of ear, unspecified ear; Translations: [Other disorders of ear] Episodic Other ear and sense organ disorders (5 sources) Impacted cerumen, unspecified ear; Translations: [Impacted cerumen] Episodic Other ear and sense organ disorders (2 sources) Impacted cerumen, right ear; Translations: [Impacted cerumen, right ear] Onset: 5 Episodic Other endocrine disorders (20 sources) Polycystic ovary syndrome; Translations: [Polycystic ovarian syndrome] Onset: 1 04-23-2020 Chronic Other endocrine disorders (20 sources) Polycystic ovarian syndrome; Translations: [Polycystic ovaries] Chronic Other eye disorders (3 sources) Subconjunctival hemorrhage; Translations: [Conjunctival hemorrhage, right eye] 05-12-2023 Episodic Other eye disorders (7 sources) Subconjunctival hemorrhage of right eye; Translations: [Conjunctival hemorrhage, right eye] 05-12-2023 Episodic Other female genital disorders (20 sources) Postcoital bleeding; Translations: [Postcoital and contact bleeding] 02-15-2022 Chronic Other female genital disorders (20 sources) Abnormal uterine bleeding; Translations: [Abnormal uterine and vaginal bleeding, unspecified] 02-15-2022 Chronic Other female genital disorders (1 source) Postcoital and contact bleeding; Translations: [Postcoital and contact bleeding] Onset: 5 Chronic Other female genital disorders (20 sources) Cyst of vulva; Translations: [Vulvar cyst] 12-15-2022 Episodic Other female genital disorders (10 sources) Vulvar cyst; Translations: [Other specified noninflammatory disorders of vulva and perineum] 12-15-2022 Episodic Other gastrointestinal disorders (20 sources) Heartburn; Translations: [Heartburn] 09-15-2021 Episodic Other gastrointestinal disorders (7 sources) Heartburn; Translations: [Heartburn] Episodic Other gastrointestinal disorders (4 sources) Abdominal bloating; Translations: [Abdominal distension (gaseous)] 09-05-2023 Episodic Other injuries and conditions due to external causes (20 sources) Foreign body in respiratory tract; Translations: [Unspecified foreign body in respiratory tract, part unspecified causing other injury, initial encounter] 04-24-2020 Episodic Other liver diseases (10 sources) Non-alcoholic fatty liver; Translations: [Fatty (change of) liver, not elsewhere classified] Chronic Other liver diseases (20 sources) Fatty (change of) liver, not elsewhere classified; Translations: [Other chronic nonalcoholic liver disease] Onset: 5 Chronic Other liver diseases (6 sources) Steatosis of liver; Translations: [Fatty (change of) liver, not elsewhere classified] Onset: 4 05-06-2014 Chronic Other liver diseases (20 sources) Hepatosplenomegaly; Translations: [Hepatomegaly with splenomegaly, not elsewhere classified] 02-15-2022 Episodic Other liver diseases (20 sources) Large liver; Translations: [Hepatomegaly, not elsewhere classified] 08-28-2021 Episodic Other liver diseases (7 sources) Hepatomegaly with splenomegaly, not elsewhere classified; Translations: [Other chronic nonalcoholic liver disease] Episodic Other lower respiratory disease (20 sources) Dyspnea on exertion; Translations: [Dyspnea, unspecified] 02-15-2022 Episodic Other lower respiratory disease (20 sources) Hemoptysis; Translations: [Hemoptysis] 02-15-2022 Episodic Other lower respiratory disease (20 sources) Cough; Translations: [Cough] Episodic Other lower respiratory disease (20 sources) Lung mass; Translations: [Other nonspecific abnormal finding of lung field] 03-23-2021 Episodic Other lower respiratory disease (2 sources) Other nonspecific abnormal finding of lung field; Translations: [Swelling, mass, or lump in chest] Episodic Other lower respiratory disease (2 sources) Shortness of breath; Translations: [Shortness of breath] Onset: 5 Episodic Other nervous system disorders (20 sources) Carpal tunnel syndrome; Translations: [Carpal tunnel syndrome, unspecified upper limb] 02-15-2022 Chronic Other nervous system disorders (20 sources) Ulnar nerve entrapment at elbow; Translations: [Lesion of ulnar nerve, unspecified upper limb] 02-15-2022 Chronic Other nervous system disorders (20 sources) Meralgia paresthetica; Translations: [Meralgia paresthetica, left lower limb] 02-25-2022 Chronic Other nervous system disorders (11 sources) Meralgia paresthetica, left lower limb; Translations: [Meralgia paresthetica] Chronic Other nervous system disorders (19 sources) Carpal tunnel syndrome, right upper limb; Translations: [Carpal tunnel syndrome] 10-24-2022 Chronic Other nervous system disorders (12 sources) Lesion of ulnar nerve, left upper limb; Translations: [Cubital tunnel syndrome on left] 08-18-2023 Chronic Other nervous system disorders (4 sources) Carpal tunnel syndrome of left wrist; Translations: [Carpal tunnel syndrome, left upper limb] 08-18-2023 Chronic Other nervous system disorders (8 sources) Carpal tunnel syndrome, left upper limb; Translations: [Carpal tunnel syndrome] 08-18-2023 Chronic Other nervous system disorders (3 sources) Other chronic pain; Translations: [Other chronic pain] Onset: 4 Chronic Other nervous system disorders (20 sources) Paresthesia; Translations: [Paresthesia of skin] 12-23-2018 Episodic Other nervous system disorders (20 sources) Postoperative pain ; Translations: [Other acute postprocedural pain] 04-24-2020 Episodic Other nervous system disorders (20 sources) Paresthesia of upper limb; Translations: [Anesthesia of skin] 02-15-2022 Episodic Other nervous system disorders (20 sources) Paresthesia of left lower limb; Translations: [Paresthesia of skin] 11-19-2021 Episodic Other nervous system disorders (8 sources) Paresthesia of skin; Translations: [Disturbance of skin sensation] Episodic Other nervous system disorders (8 sources) Anesthesia of skin; Translations: [Disturbance of skin sensation] Episodic Other nervous system disorders (20 sources) Other acute postprocedural pain; Translations: [Other acute postoperative pain] Onset: Episodic Other nervous system disorders (18 sources) Acute postoperative pain; Translations: [Other acute postprocedural pain] 02-14-2023 Episodic Other non-traumatic joint disorders (1 source) Shoulder pain; Translations: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 above: Order Comment: Injur y/Trauma or Illness?:Illness/Other How long have you had these symptoms (acute/chronic)?:Chronic Reason for exam?:PAIN History of cancer?:n Surgeries, chemotherapy, or radiation?:ORIF radius and ulna Type of Exam?:Initial Additional signs and symptoms?:NO ED Prov Noteon 06-16-2024 ED Prov Note [place] ED Physician Note: NAME: Lana Rivera 39 y.o. CSN: [id number] PCP: Aleena London MD ED Course / Medical Decision Making: Patient has plantar fasciitis. Patient told to get a good gel insole for her shoe. She is on Xarelto for a DVT so she cannot use anti-inflammatories told to use Tylenol. She was referred to podiatry. Patient had no fall or injury I did not feel x-ray is indicated. She is not tender over the calcaneus so doubt bone spur. Patient given stretching exercises for the plantar fasciitis. Patient also has a chronic DVT in her right leg. No signs of PE no chest pain or shortness of breath oxygen saturation 100% on room air she wanted pain medication for a chronic right leg pain. I told her since this is a chronic DVT she needs to follow-up with pain management. I did offer her pain medication in the ER if she was not driving. She was driving so I had to forego pain medication in the ER other than Tylenol. Patient understands discharge and follow-up instructions she is comfortable going home. She was referred to podiatry for the plantar fasciitis she is to follow-up with chronic management of her choice for with her chronic leg pain. Medical Decision Making Amount and/or Complexity of Data Reviewed Independent Historian: Details: Patient gave history Clinical Impression: 1. Plantar fasciitis of right foot 2. Chronic deep vein thrombosis (DVT) of proximal vein of right lower extremity (HCC) Disposition: Patient is being discharged to home History: Chief Complaint: Leg Pain HPI: The history was obtained from the patient. She is a 39 y.o. female who presents with a chief complaint of Leg Pain. HPI patient comes in for chronic right leg pain related to a DVT. She had an ultrasound a week ago which shows a resolving DVT. She is followed with vascular. She has been taking oxycodone but ran out of her pain medication. She was told if she needs pain medication to come to the ER. Patient also has pain in the right insole of her foot. No history of injury. She is on her feet a lot. PMHx: Past Medical History: Diagnosis Date Disease of thyroid gland DVT (deep venous thrombosis) (HCC) RLE Almaz thyroiditis, fibrous variant Hypertension Migraine PMSx: Past Surgical History: Procedure Laterality Date CARPAL TUNNEL RELEASE Right FEMUR SURGERY Right HYSTERECTOMY (CERVIX REMOVED) ORIF RADIUS & ULNA FRACTURES Left THYROIDECTOMY FAM. Hx: History reviewed. No pertinent family history. SOC. Hx: Social History Socioeconomic History Marital status: Tobacco Use Smoking status: Every Day Current packs/day: 1.00 Types: Cigarettes Smokeless tobacco: Never Vaping Use Vaping status: Never Used Substance and Sexual Activity Alcohol use: Yes Comment: occasionally Drug use: Not Currently Social Drivers of Health Financial Resource Strain: High Risk (02/19/2020) Received from [facility] Overall Financial Resource Strain (CARDIA) Difficulty of Paying Living Expenses: Hard Food Insecurity: No Food Insecurity (02/19/2020) Received from [facility] Hunger Vital Sign Worried About Running Out of Food in the Last Year: Never true Ran Out of Food in the Last Year: Never true Transportation Needs: No Transportation Needs (02/19/2020) Received from [facility] PRAPARE - Transportation Lack of Transportation (Medical): No Lack of Transportation (Non-Medical): No Physical Activity: Insufficiently Active (01/27/2020) Received from [facility] Exercise Vital Sign Days of Exercise per Week: 2 days Minutes of Exercise per Session: 20 min Stress: No Stress Concern Present (01/27/2020) Received from [facility] [employer] [place] [facility] - Occupational Stress Questionnaire Feeling of Stress : Only a little Social Connections: Moderately Isolated (01/27/2020) Received from [facility] Social Connection and Isolation Panel [NHANES] Frequency of Communication with Friends and Family: More than three times a week Frequency of Social Gatherings with Friends and Family: Twice a week Attends Yazidi Services: Never Active Member of Clubs or Organizations: No Attends Club or Organization Meetings: Never Marital Status: Housing Stability: Low Risk (01/27/2020) Received from [facility] Housing Stability Vital Sign Unable to Pay for Housing in the Last Year: No Number of Places Lived in the Last Year: 1 Unstable Housing in the Last Year: No MEDs: Previous Medications Medication Sig albuterol 90 mcg/actuation inhaler Inhale 2 (two) puffs every 4 (four) hours as needed . amLODIPine (NORVASC) 5 MG tablet Take 1 (one) tablet (5 mg total) by mouth daily . azithromycin (ZITHROMAX) 250 MG tablet Take 2 pills (more content not included)... [facility] ED Prov Noteon 06-13-2024 ED Prov Note ED [facility] NAME: Lana Rivera AGE: 39 y.o. : 1985 VISIT DATE: 06/13/2024 CSN: [id number] PCP: Aleena London MD Chief Complaint Patient presents with Shoulder Pain Chief complaint shoulder pain History of present illness 39-year-old female is here with left shoulder pain aggravated by abduction. States that she was moving furniture the other day with her stepson and developed discomfort about 4 to 5 hours later. And is here for assessment Past Medical History: Diagnosis Date Disease of thyroid gland DVT (deep venous thrombosis) (HCC) RLE Almaz thyroiditis, fibrous variant Hypertension Migraine Past Surgical History: Procedure Laterality Date CARPAL TUNNEL RELEASE Right FEMUR SURGERY Right HYSTERECTOMY (CERVIX REMOVED) ORIF RADIUS & ULNA FRACTURES Left THYROIDECTOMY History reviewed. No pertinent family history. Social History Socioeconomic History Marital status: Tobacco Use Smoking status: Every Day Current packs/day: 1.00 Types: Cigarettes Smokeless tobacco: Never Vaping Use Vaping status: Never Used Substance and Sexual Activity Alcohol use: Yes Comment: occasionally Drug use: Not Currently Social Drivers of Health Financial Resource Strain: High Risk (02/19/2020) Received from [facility] Overall Financial Resource Strain (CARDIA) Difficulty of Paying Living Expenses: Hard Food Insecurity: No Food Insecurity (02/19/2020) Received from [facility] Hunger Vital Sign Worried About Running Out of Food in the Last Year: Never true Ran Out of Food in the Last Year: Never true Transportation Needs: No Transportation Needs (02/19/2020) Received from [facility] PRAPARE - Transportation Lack of Transportation (Medical): No Lack of Transportation (Non-Medical): No Physical Activity: Insufficiently Active (01/27/2020) Received from [facility] Exercise Vital Sign Days of Exercise per Week: 2 days Minutes of Exercise per Session: 20 min Stress: No Stress Concern Present (01/27/2020) Received from [facility] [employer] [place] [facility] [employer] - Occupational Stress Questionnaire Feeling of Stress : Only a little Social Connections: Moderately Isolated (01/27/2020) Received from [facility] Social Connection and Isolation Panel [NHANES] Frequency of Communication with Friends and Family: More than three times a week Frequency of Social Gatherings with Friends and Family: Twice a week Attends Yazidi Services: Never Active Member of Clubs or Organizations: No Attends Club or Organization Meetings: Never Marital Status: Housing Stability: Low Risk (01/27/2020) Received from [facility] Housing Stability Vital Sign Unable to Pay for Housing in the Last Year: No Number of Places Lived in the Last Year: 1 Unstable Housing in the Last Year: No Previous Medications Medication Sig albuterol 90 mcg/actuation inhaler Inhale 2 (two) puffs every 4 (four) hours as needed . amLODIPine (NORVASC) 5 MG tablet Take 1 (one) tablet (5 mg total) by mouth daily . azithromycin (ZITHROMAX) 250 MG tablet Take 2 pills on day 1, then take 1 pill daily for the next 4 days. . baclofen (LIORESAL) 10 MG tablet Take 2 (two) tablets (20 mg total) by mouth 3 (three) times a day for 5 days . busPIRone (BUSPAR) 5 MG tablet Take 1 (one) tablet (5 mg total) by mouth 3 (three) times a day . diazePAM (VALIUM) 5 MG tablet Take 1 (one) tablet (5 mg total) by mouth 2 (two) times a day as needed for anxiety (Days supply per fill: 3 DAY SUPPLY . (Patient not taking: Reported on 11/23/2021 .) dicyclomine (BENTYL) 20 mg tablet Take 1 (one) tablet (20 mg total) by mouth 4 (four) times a day before meals and nightly for 5 days . ketoprofen (ORUDIS) 75 MG capsule Take 1 (one) capsule (75 mg total) by mouth 4 (four) times a day as needed for pain . levothyroxine (SYNTHROID, LEVOTHROID) 137 MCG tablet Take 137 mcg by mouth once daily . mupirocin (BACTROBAN) 2 % ointment Apply topically 3 (three) times a day . ondansetron (ZOFRAN-ODT) 4 MG disintegrating tablet Dissolve 1 (one) tablet (4 mg total) on top of tongue every 8 (eight) hours as needed for nausea . prochlorperazine (COMPAZINE) 10 MG tablet Take 1 (one) tablet (10 mg total) by mouth every 6 (six) hours as needed for nausea . sertraline (ZOLOFT) 25 MG tablet Take 1 (one) tablet (25 mg total) by mouth daily . sertraline (ZOLOFT) 50 MG tablet Take 1 (one) tablet (50 mg total) by mouth daily Start: 03/12/24. ursodioL (ACTIGALL) 250 mg tablet Take 250 mg by mouth . vitamin E 200 UNIT capsule Take 1 (one) capsule (200 Units total) by mouth daily . Xarelto 20 mg Tab TAKE 1 TABLET BY MOUTH TAKE WITH FOOD Allergies Allergen Re (more content not included)... [facility] XR SHOULDER LEFT 2+ VIEWS (S TANDARD)on 06-13-2024 XR SHOULDER LEFT 2+ VIEWS (STANDARD) EXAMINATION: XR SHOULDER LEFT 2+ VIEWS (STANDARD) 06/13/2024 2:58 PM HISTORY: ORDERING SYSTEM PROVIDED HISTORY: Left shoulder pain, TECHNOLOGIST PROVIDED HISTORY: Injury/Trauma Reason for exam: L shoulder pain Cancer History: n Surgery, RadiationHistory: ORIF radius and ulna Encounter Type: Initial Mechanism of injury: L shoulder and neck pain after moving heavy furniture 3 days ago COMPARISON: 01/16/2024. FINDINGS: Three views of the left shoulder were obtained. There is no acute fracture or dislocation. Osseous structures are appropriately mineralized. Glenohumeral and acromioclavicular joint spaces are maintained. Visualized soft tissues appear unremarkable. IMPRESSION: No acute osseous abnormality. RPS/trw Workstation ID: [id number] Dictated by: RAUL WESTON on MonJun 13, 2024 3:35:23 PM EST Transcribed by: OLY TINAJERO on MonJun 13, 2024 3:40:55 PM EST Finalized by: RAUL WESTON on MonJun 13, 2024 3:52:44 PM EST [facility] Comment on above: Order Comment: Injur y/Trauma or Illness?:Injury/TraumaHow long have you had these symptoms (acute/chronic)?:AcuteReason for exam?:L shoulder painHistory of cancer?:nSurgeries, chemotherapy, or radiation?:ORIF radius and ulnaType of Exam?:InitialMechanism of injury?:L shoulder and neck pain after moving heavy furniture 3 days ago ED Prov Noteon 06-05-2024 ED Prov Note ED [facility] NAME: Lana Rviera AGE: 39 y.o. : 1985 VISIT DATE: 06/05/2024 CSN: [id number] PCP: Aleena London MD Chief Complaint Patient presents with Leg Pain Headache Patient is a 39-year-old female with a past medical history of DVT, migraines, Almaz thyroiditis, hypertension and migraines who presents today for concern of leg pain and headaches. Patient states the last 3 days she has had a frontal migraine headache which is consistent in quality nature to her previous headaches. Patient states has been taking her home migraine medications with no relief. Patient denies any lightheadedness, dizziness, visual changes, chest pain, shortness of breath, pleurisy, history of PE, or syncope. Patient states she was diagnosed with a right thigh DVT 3 weeks prior and is currently taking Xarelto for which she is compliant. Patient states he had a recent ultrasound which showed improvement of her DVT. Patient states has been having pain in her DVT and was referred to the emergency department for pain management. Patient also states her last 3 days she has had sinus congestion and pressure and is currently taking doxycycline. Patient agrees assessment and plan understands reason return was discharged in stable condition. Past Medical History: Diagnosis Date Disease of thyroid gland DVT (deep venous thrombosis) (HCC) RLE Almaz thyroiditis, fibrous variant Hypertension Migraine Past Surgical History: Procedure Laterality Date CARPAL TUNNEL RELEASE Right FEMUR SURGERY Right HYSTERECTOMY (CERVIX REMOVED) ORIF RADIUS & ULNA FRACTURES Left THYROIDECTOMY History reviewed. No pertinent family history. Social History Socioeconomic History Marital status: Tobacco Use Smoking status: Every Day Current packs/day: 1.00 Types: Cigarettes Smokeless tobacco: Never Vaping Use Vaping status: Never Used Substance and Sexual Activity Alcohol use: Yes Comment: occasionally Drug use: Not Currently Social Drivers of Health Financial Resource Strain: High Risk (02/19/2020) Received from [facility] Overall Financial Resource Strain (CARDIA) Difficulty of Paying Living Expenses: Hard Food Insecurity: No Food Insecurity (02/19/2020) Received from [facility] Hunger Vital Sign Worried About Running Out of Food in the Last Year: Never true Ran Out of Food in the Last Year: Never true Transportation Needs: No Transportation Needs (02/19/2020) Received from [facility] PRAPARE - Transportation Lack of Transportation (Medical): No Lack of Transportation (Non-Medical): No Physical Activity: Insufficiently Active (01/27/2020) Received from [facility] Exercise Vital Sign Days of Exercise per Week: 2 days Minutes of Exercise per Session: 20 min Stress: No Stress Concern Present (01/27/2020) Received from [facility] [place] [facility] - Occupational Stress Questionnaire Feeling of Stress : Only a little Social Connections: Moderately Isolated (01/27/2020) Received from [facility] Social Connection and Isolation Panel [NHANES] Frequency of Communication with Friends and Family: More than three times a week Frequency of Social Gatherings with Friends and Family: Twice a week Attends Yazidi Services: Never Active Member of Clubs or Organizations: No Attends Club or Organization Meetings: Never Marital Status: Housing Stability: Low Risk (01/27/2020) Received from [facility] Housing Stability Vital Sign Unable to Pay for Housing in the Last Year: No Number of Places Lived in the Last Year: 1 Unstable Housing in the Last Year: No Previous Medications Medication Sig albuterol 90 mcg/actuation inhaler Inhale 2 (two) puffs every 4 (four) hours as needed . amLODIPine (NORVASC) 5 MG tablet Take 1 (one) tablet (5 mg total) by mouth daily . azithromycin (ZITHROMAX) 250 MG tablet Take 2 pills on day 1, then take 1 pill daily for the next 4 days. . baclofen (LIORESAL) 10 MG tablet Take 2 (two) tablets (20 mg total) by mouth 3 (three) times a day for 5 days . betamethasone valerate (VALISONE) 0.1 % cream Apply topically 2 (two) times a day . busPIRone (BUSPAR) 5 MG tablet Take 1 (one) tablet (5 mg total) by mouth 3 (three) times a day . diazePAM (VALIUM) 5 MG tablet Take 1 (one) tablet (5 mg total) by mouth 2 (two) times a day as needed for anxiety (Days supply per fill: 3 DAY SUPPLY . (Patient not taking: Reported on 11/23/2021 .) dicyclomine (BENTYL) 20 mg tablet Take 1 (one) tablet (20 mg total) by mouth 4 (four) times a day before meals and nightly for 5 days . ketoprofen (ORUDIS) 75 MG capsule Take 1 (one) capsule (75 mg total) by mouth 4 (four) times a d (more content not included)... [facility] ED Prov Noteon 05-28-2024 ED Prov Note ED PROVIDER NOTE [facility] NAME: Lana Rivera AGE: 39 y.o. : 1985 VISIT DATE: 05/28/2024 CSN: [id number] PCP: Aleena London MD Chief Complaint Patient presents with Cough Nasal Congestion Abdominal Pain This is a 39-year-old female who comes in with cough, nasal congestion, sinus pressure, sinus pain and some very mild epigastric discomfort. No nausea vomiting diarrhea or constipation. No fevers or chills. Cough Abdominal Pain Associated symptoms: cough Past Medical History: Diagnosis Date Disease of thyroid gland DVT (deep venous thrombosis) (HCC) RLE Almaz thyroiditis, fibrous variant Hypertension Migraine Past Surgical History: Procedure Laterality Date CARPAL TUNNEL RELEASE Right FEMUR SURGERY Right HYSTERECTOMY (CERVIX REMOVED) ORIF RADIUS & ULNA FRACTURES Left THYROIDECTOMY History reviewed. No pertinent family history. Social History Socioeconomic History Marital status: Tobacco Use Smoking status: Every Day Current packs/day: 1.00 Types: Cigarettes Smokeless tobacco: Never Vaping Use Vaping status: Never Used Substance and Sexual Activity Alcohol use: Yes Comment: occasionally Drug use: Not Currently Social Drivers of Health Financial Resource Strain: High Risk (02/19/2020) Received from [facility] Overall Financial Resource Strain (CARDIA) Difficulty of Paying Living Expenses: Hard Food Insecurity: No Food Insecurity (02/19/2020) Received from [facility] Hunger Vital Sign Worried About Running Out of Food in the Last Year: Never true Ran Out of Food in the Last Year: Never true Transportation Needs: No Transportation Needs (02/19/2020) Received from [facility] PRAPARE - Transportation Lack of Transportation (Medical): No Lack of Transportation (Non-Medical): No Physical Activity: Insufficiently Active (01/27/2020) Received from [facility] Exercise Vital Sign Days of Exercise per Week: 2 days Minutes of Exercise per Session: 20 min Stress: No Stress Concern Present (01/27/2020) Received from [facility] [place] [facility] - Occupational Stress Questionnaire Feeling of Stress : Only a little Social Connections: Moderately Isolated (01/27/2020) Received from [facility] Social Connection and Isolation Panel [NHANES] Frequency of Communication with Friends and Family: More than three times a week Frequency of Social Gatherings with Friends and Family: Twice a week Attends Yazidi Services: Never Active Member of Clubs or Organizations: No Attends Club or Organization Meetings: Never Marital Status: Housing Stability: Low Risk (01/27/2020) Received from [facility] Housing Stability Vital Sign Unable to Pay for Housing in the Last Year: No Number of Places Lived in the Last Year: 1 Unstable Housing in the Last Year: No Previous Medications Medication Sig albuterol 90 mcg/actuation inhaler Inhale 2 (two) puffs every 4 (four) hours as needed . amLODIPine (NORVASC) 5 MG tablet Take 1 (one) tablet (5 mg total) by mouth daily . baclofen (LIORESAL) 10 MG tablet Take 2 (two) tablets (20 mg total) by mouth 3 (three) times a day for 5 days . betamethasone valerate (VALISONE) 0.1 % cream Apply topically 2 (two) times a day . busPIRone (BUSPAR) 5 MG tablet Take 1 (one) tablet (5 mg total) by mouth 3 (three) times a day . diazePAM (VALIUM) 5 MG tablet Take 1 (one) tablet (5 mg total) by mouth 2 (two) times a day as needed for anxiety (Days supply per fill: 3 DAY SUPPLY . (Patient not taking: Reported on 11/23/2021 .) dicyclomine (BENTYL) 20 mg tablet Take 1 (one) tablet (20 mg total) by mouth 4 (four) times a day before meals and nightly for 5 days . ketoprofen (ORUDIS) 75 MG capsule Take 1 (one) capsule (75 mg total) by mouth 4 (four) times a day as needed for pain . levothyroxine (SYNTHROID, LEVOTHROID) 137 MCG tablet Take 137 mcg by mouth once daily . mupirocin (BACTROBAN) 2 % ointment Apply topically 3 (three) times a day . ondansetron (ZOFRAN-ODT) 4 MG disintegrating tablet Dissolve 1 (one) tablet (4 mg total) on top of tongue every 8 (eight) hours as needed for nausea . prochlorperazine (COMPAZINE) 10 MG tablet Take 1 (one) tablet (10 mg total) by mouth every 6 (six) hours as needed for nausea . sertraline (ZOLOFT) 25 MG tablet Take 1 (one) tablet (25 mg total) by mouth daily . sertraline (ZOLOFT) 50 MG tablet Take 1 (one) tablet (50 mg total) by mouth daily Start: 03/12/24. ursodioL (ACTIGALL) 250 mg tablet Take 250 mg by mouth . vitamin E 200 UNIT capsule Take 1 (one) capsule (200 Units total) by mouth daily . Xarelto 20 mg Tab TAKE 1 TABLET BY MOUTH TAKE WITH FOOD Allergies Allergen Reactions Hydrocodo (more content not included)... [facility] ED Prov Noteon 05-09-2024 ED Prov Note HPI: 05/09/2024, Time: @NOWNR@ Lana Desai Ronnell is a 39 y.o. female presenting to the ED for red painful bumps right groin but also was told she has ovarian cysts of 4 cm causing right lower quadrant pain and was told to come to the ER for pain control because her doctor is out of the office, beginning over the last few days especially ago. The complaint has been constant, moderate in severity, and worsened by changing position. No fever or chills and no difficulty breathing and no swelling of the groin ROS: Pertinent positives and negatives are stated within HPI, all other systems reviewed and are negative. PAST HISTORY Past Medical History: @[facility]@ Past Surgical History: has a past surgical history that includes Femur Surgery (Right); ORIF radius & ulna fractures (Left); Thyroidectomy; Hysterectomy; and Carpal tunnel release (Right). Social History: reports that she has been smoking cigarettes. She has never used smokeless tobacco. She reports current alcohol use. She reports that she does not currently use drugs. Family History: family history is not on file. The patient's home medications have been reviewed. Allergies: Hydrocodone, Latex, Penicillins, Toradol [ketorolac], Vicodin [hydrocodone-acetaminop hen], Dicyclomine, Naproxen, and Promethazine ---- RESULTS --- All laboratory and radiology results have been personally reviewed by myself LABS: Results for orders placed or performed during the hospital encounter of 04/01/24 POC CBC and Differential Collection Time: 04/01/24 10:29 AM Result Value Ref Range WBC 5.56 4.50 - 11.00 K/mcL RBC 5.12 4.00 - 5.20 M/mcL Hemoglobin 14.8 12.0 - 16.0 g/dL Hematocrit 44.1 36.0 - 46.0 % MCV 86.1 80.0 - 100.0 fL MCH 28.9 26.0 - 34.0 pg MCHC 33.6 31.0 - 37.0 g/dL RDW - CV 12.6 11.6 - 14.8 % Platelets 173 150 - 400 K/mcL MPV 11.0 9.4 - 12.4 fL Neutrophils 60.8 % Lymphocytes 26.3 % Monocytes 7.6 % Eosinophils 4.7 % Basophils 0.4 % IG Percent 0.20 % Neutrophils Abs 3.39 1.70 - 7.00 K/mcL Lymphocytes Abs 1.46 0.90 - 4.00 K/mcL Monocytes Abs 0.42 0.30 - 0.90 K/mcL Eosinophils Abs 0.26 0.00 - 0.50 K/mcL Basophils Abs 0.02 0.00 - 0.30 K/mcL IG Absolute 0.01 0.00 - 0.30 K/mcL POC Urinalysis Dipstick, Auto Collection Time: 04/01/24 10:33 AM Result Value Ref Range Spec Grav, UA 1.025 1.005 - 1.025 pH, UA 6.5 5.0 - 7.0 Protein, UA Negative Negative mg/dL Glucose, UA Negative Negative mg/dL Ketones, UA Negative Negative mg/dL Bilirubin, UA Negative Negative Urobilinogen, UA 0.2 <2.0 mg/dL Blood, UA Negative Negative Nitrite, UA Negative Negative Leukocyte Esterase, UA Negative Negative POC Liver Panel Plus Collection Time: 04/01/24 10:35 AM Result Value Ref Range Albumin 4.0 3.2 - 5.2 g/dL Alkaline Phosphatase 57 40 - 140 U/L ALT (SGPT) 29 0 - 40 U/L AST (SGOT) 28 0 - 45 U/L Bilirubin, Total 0.6 0.0 - 1.3 mg/dL Total Protein 7.2 6.0 - 8.0 g/dL Amylase 24 (L) 25 - 115 U/L GGT 17 7 - 33 U/L POC Basic Metabolic Panel Collection Time: 04/01/24 10:39 AM Result Value Ref Range Glucose 139 (H) 65 - 99 mg/dL BUN 9 8 - 25 mg/dL Creatinine 0.60 0.40 - 1.10 mg/dL GFR 119 >=60 mL/min/1.73 m2 Sodium 141 135 - 145 mmol/L Potassium 4.0 3.5 - 5.1 mmol/L Chloride 105 98 - 108 mmol/L TCO2 25 21 - 32 mmol/L Ionized Calcium 4.7 4.5 - 5.3 mg/dL POC , Urine Collection Time: 04/01/24 10:39 AM Result Value Ref Range POC Preg Test, Urine Negative Negative RADIOLOGY: Interpreted by Radiologist. No orders to display -- NURSING NOTES AND VITALS REVIEWED ---- The nursing notes within the ED encounter and vital signs as below have been reviewed. BP 120/68 Pulse (!) 109 Temp 98.1 degrees F (36.7 degrees C) (Oral) Resp 18 Ht 5' 6 Wt 110.7 kg (244 lb) LMP 02/04/2022 (Approximate) SpO2 100% BMI 39.38 kg/m Oxygen Saturation Interpretation: Normal -----PHYSICAL EXAM Constitutional/General: Alert and oriented x3, well appearing, non toxic in mild apparent discomfort Head: NC/AT Eyes: PERRL, EOMI Mouth: Oropharynx clear, handling secretions, no trismus Neck: Supple, full ROM, no meningeal signs Pulmonary: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 Surgery, RadiationHistory: ORIF radius and ulna Encounter Type: Initial Mechanism of injury: Fell and hit trampoline yesterday ORDERING SYSTEM PROVIDED DIAGNOSIS CODES: COMPARISON: None. FINDINGS: Three views of the left wrist. No acute fracture. Joint alignment is anatomic. Joint spaces are preserved. Soft tissues are within normal limits. IMPRESSION: No acute osseous abnormality. [employer] Workstation ID: [id number] Dictated by: JOHANNA MARCH on MonMar 04, 2024 1:13:20 PM EDT Transcribed by: FLO MOSS on MonMar 04, 2024 1:17:08 PM EDT Finalized by: JOHANNA MARCH on MonMar 04, 2024 10:27:17 PM EDT [facility] Comment on above: Order Comment: Injur y/Trauma or Illness?:Injury/TraumaHow long have you had these symptoms (acute/chronic)?:AcuteReason for exam?:wrist painHistory of cancer?:nSurgeries, chemotherapy, or radiation?:ORIF radius and ulnaType of Exam?:InitialMechanism of injury?:Fell and hit trampoline yesterday ED Prov Noteon 02-23-2024 ED Prov Note [facility] ATTENDING NOTE: NAME: Lana Rivera CSN: [id number] 38 y.o. PCP: Aleena London MD History: Chief Complaint: Pain HPI: The history was obtained from the patient. Lana is a 38 y.o. female who presents with a chief complaint of Pain. Patient has a history of left nephrectomy, hysterectomy and states that she has had issues with right ovarian cyst for several years. She has seen multiple specialists and wants to have it removed however it is embedded with her bowel. In fact when she had her left oophorectomy she needs to have a part of her sigmoid colon resected. With this knowledge, she states that her OB told her that she can never have right-sided ovarian torsion because it is connected to her bowel. She has an appointment next week with OB but her pain is too much to bear. Currently rated 8/10 dull constant aching nonradiating. She was advised to come to the ER for pain control. ED Course / Medical Decision Making: ED COURSE: 38-year-old female presents with right ovarian cyst pain. Given her history, ovarian torsion is not considered. She is given a short course of Percocet until she may follow-up with [facility]. After reviewing the items above, I did look at previous medical documentation, such as recent hospitalizations, office visits, and/or recent consultations with PCP/specialist. SDOH: Another factor that I considered in Lana's care was her Social Determinants of Health (SDOH). During this ED encounter, she did NOT appear to have any significant issues identified. Laboratory & Radiological Imaging (if done): Labs Reviewed - No data to display No orders to display Clinical Impression: 1. Right ovarian cyst ROS: Review of Systems Genitourinary: Positive for pelvic pain. Positives and pertinent negatives as per HPI. All other systems were reviewed and are negative. Physical Exam: Patient Vitals for the past 24 hrs: BP Temp Temp src Pulse Resp SpO2 Height Weight 02/23/24 1801 (!) 132/100 98.1 degrees F (36.7 degrees C) Oral 78 16 100 % 5' 6 104.3 kg (230 lb) Physical Exam Vitals and nursing note reviewed. Constitutional: General: She is not in acute distress. Appearance: Normal appearance. She is not ill-appearing. HENT: Head: Normocephalic and atraumatic. Nose: Nose normal. Mouth/Throat: Mouth: Mucous membranes are moist. Pharynx: Oropharynx is clear. Eyes: Conjunctiva/sclera: Conjunctivae normal. Pupils: Pupils are equal, round, and reactive to light. Cardiovascular: Rate and Rhythm: Normal rate and regular rhythm. Heart sounds: Normal heart sounds. Pulmonary: Effort: Pulmonary effort is normal. Breath sounds: Normal breath sounds. Abdominal: General: Abdomen is flat. Palpations: Abdomen is soft. Tenderness: There is abdominal tenderness. There is no guarding or rebound. Skin: General: Skin is warm and dry. Neurological: General: No focal deficit present. Mental Status: She is alert and oriented to person, place, and time. Psychiatric: Mood and Affect: Mood normal. Behavior: Behavior normal. Procedures I did personally review Lana's past medical history, surgical history, social history, as well as family history (when relevant). In this case, I also oversaw the her drug management by reviewing her medication list, allergy list, as well as the medications that I prescribed during the ED course and/or recommended as an out-patient (including possible OTC medications such as acetaminophen, NSAIDs , etc). Her past medical problem list included: Active Ambulatory Problems Diagnosis Date Noted No Active Ambulatory Problems Resolved Ambulatory Problems Diagnosis Date Noted No Resolved Ambulatory Problems Past Medical History: Diagnosis Date Disease of thyroid gland DVT (deep venous thrombosis) (HCC) Almaz thyroiditis, fibrous variant Hypertension Migraine ED MEDICATIONS GIVEN: Medications - No data to display Disposition: ED Disposition ED Disposition Discharge Condition Stable Comment Lana Rivera discharged to home/self care in stable condition. New Prescriptions oxyCODONE-acetaminophen (PERCOCET) 5-325 mg per tablet Take 0.5 (one-half) tablet to 1 (one) tablet by mouth every 6 (six) hours as needed for pain . PMHx: Past Medical History: Diagnosis Date Disease of thyroid gland DVT (deep venous thrombosis) (HCC) RLE Almaz thyroiditis, fibrous variant Hypertension Migraine PMSx: Past Surgical History: Procedure Laterality Date FEMUR SURGERY Right HYSTERECTOMY (CERVIX REMOVED) ORIF RADIUS & ULNA FRACTURES Left THYROIDECTOMY FAM. Hx: History reviewed. No pertinent family history. SOC. Hx: Social History Socioeconomic History Marital status: Tobacco Use Smoking status: Every Day Current packs/day: 1.00 Types: Cigarettes Smokeless tobacco: Never Vaping Use (more content not included)... [facility] CT ABDOMEN PELVIS WITH IV CO NTRAST ONLYon 02-20-2024 CT ABDOMEN PELVIS WITH IV CONTRAST ONLY EXAMINATION: CT ABDOMEN PELVIS WITH IV CONTRAST ONLY HISTORY: ORDERING SYSTEM PROVIDED HISTORY: Abdominal pain, acute, nonlocalized, TECHNOLOGIST PROVIDED HISTORY: Illness/Other Reason for exam: abd pain and disomfort Encounter Type: Initial Additional signs and symptoms: na ORDERING SYSTEM PROVIDED DIAGNOSIS CODES: COMPARISON: Multiple prior comparisons TECHNIQUE: CT examination of the abdomen and pelvis following the administration of intravenous contrast. Coronal and sagittal reformations were performed. Dose reduction techniques were achieved by using automated exposure control and/or adjustment of mA and/or kV according to patient size and/or use of iterative reconstruction technique. CONTRAST: IOPAMIDOL 370 MG IODINE/ML (76 %) INTRAVENOUS SOLUTION - 75 mL, FINDINGS: LOWER CHEST: There is no pleural or pericardial effusion. The heart size is within normal limits. Unchanged right-sided pleural thickening. Unchanged bibasilar pulmonary nodules. Abdomen/pelvis: The liver, spleen, pancreas and adrenal glands are within normal limits. The gallbladder is within normal limits. There is no biliary dilatation. Small left-sided renal cysts, unchanged. Right kidney is otherwise within normal limits. The left kidney is within normal limits. The urinary bladder is within normal limits. Unchanged 4 cm complex right adnexal lesion, similar to the prior pelvic ultrasound and likely associated with the right ovary. Postsurgical changes of a prior hysterectomy. There are multiple phleboliths present within the pelvis. There is no adenopathy within the abdomen or pelvis. There is no intraperitoneal free fluid or free air. There are no abnormally dilated or thickened loops of. No evidence of bowel obstruction. Normal appendix. Small fat containing umbilical hernia, unchanged. Cough There are no aggressive appearing bony lesions. IMPRESSION: No definite acute abnormality within the abdomen or pelvis. Workstation ID: [id number] Dictated by: SHAQ AYALA on MonFeb 20, 2024 11:00:04 AM EDT Transcribed by: SHAQ AYALA on MonFeb 20, 2024 11:00:04 AM EDT Finalized by: SHAQ AYALA on MonFeb 20, 2024 11:00:04 AM EDT [facility] Comment on above: Order Comment: Injur y/Trauma or Illness?:Illness/Other How long have you had these symptoms (acute/chronic)?:Acute Reason for exam?:abd pain and disomfort Type of Exam?:Initial Additional signs and symptoms?:na ED Prov Noteon 02-20-2024 ED Prov Note ED PROVIDER NOTE [facility] NAME: Lana Rivera AGE: 38 y.o. : 1985 VISIT DATE: 02/20/2024 CSN: [id number] PCP: Aleena London MD Chief Complaint Patient presents with Abdominal Pain 38-year-old female patient presents ER for evaluation of right-sided abdominal pain, onset 2 days, associate nausea vomiting, worse palpation eating relieved with rest. No fevers, chest pain or difficulty breathing, no changes in bowel or bladder. Past Medical History: Diagnosis Date Disease of thyroid gland DVT (deep venous thrombosis) (HCC) RLE Almaz thyroiditis, fibrous variant Hypertension Migraine Past Surgical History: Procedure Laterality Date FEMUR SURGERY Right HYSTERECTOMY (CERVIX REMOVED) ORIF RADIUS & ULNA FRACTURES Left THYROIDECTOMY History reviewed. No pertinent family history. Social History Socioeconomic History Marital status: Tobacco Use Smoking status: Every Day Current packs/day: 1.00 Types: Cigarettes Smokeless tobacco: Never Vaping Use Vaping status: Never Used Substance and Sexual Activity Alcohol use: Yes Comment: occasionally Drug use: Not Currently Social Determinants of Health Financial Resource Strain: High Risk (02/19/2020) Received from [facility] Overall Financial Resource Strain (CARDIA) Difficulty of Paying Living Expenses: Hard Food Insecurity: No Food Insecurity (02/19/2020) Received from [facility] Hunger Vital Sign Worried About Running Out of Food in the Last Year: Never true Ran Out of Food in the Last Year: Never true Transportation Needs: No Transportation Needs (02/19/2020) Received from [facility] PRAPARE - Transportation Lack of Transportation (Medical): No Lack of Transportation (Non-Medical): No Physical Activity: Insufficiently Active (01/27/2020) Received from [facility] Exercise Vital Sign Days of Exercise per Week: 2 days Minutes of Exercise per Session: 20 min Stress: No Stress Concern Present (01/27/2020) Received from [facility] [place] [facility] [employer] [facility] - Occupational Stress Questionnaire Feeling of Stress : Only a little Social Connections: Moderately Isolated (01/27/2020) Received from [facility] Social Connection and Isolation Panel [NHANES] Frequency of Communication with Friends and Family: More than three times a week Frequency of Social Gatherings with Friends and Family: Twice a week Attends Yazidi Services: Never Active Member of Clubs or Organizations: No Attends Club or Organization Meetings: Never Marital Status: Housing Stability: Low Risk (01/27/2020) Received from [facility] Housing Stability Vital Sign Unable to Pay for Housing in the Last Year: No Number of Places Lived in the Last Year: 1 Unstable Housing in the Last Year: No Previous Medications Medication Sig albuterol 90 mcg/actuation inhaler Inhale 2 (two) puffs every 4 (four) hours as needed . amLODIPine (NORVASC) 5 MG tablet Take 1 (one) tablet (5 mg total) by mouth daily . baclofen (LIORESAL) 10 MG tablet Take 2 (two) tablets (20 mg total) by mouth 3 (three) times a day for 5 days . busPIRone (BUSPAR) 5 MG tablet Take 1 (one) tablet (5 mg total) by mouth 3 (three) times a day . diazePAM (VALIUM) 5 MG tablet Take 1 (one) tablet (5 mg total) by mouth 2 (two) times a day as needed for anxiety (Days supply per fill: 3 DAY SUPPLY . (Patient not taking: Reported on 11/23/2021 .) dicyclomine (BENTYL) 20 mg tablet Take 1 (one) tablet (20 mg total) by mouth 4 (four) times a day before meals and nightly for 5 days . ketoprofen (ORUDIS) 75 MG capsule Take 1 (one) capsule (75 mg total) by mouth 4 (four) times a day as needed for pain . levothyroxine (SYNTHROID, LEVOTHROID) 137 MCG tablet Take 137 mcg by mouth once daily . prochlorperazine (COMPAZINE) 10 MG tablet Take 1 (one) tablet (10 mg total) by mouth every 6 (six) hours as needed for nausea . sertraline (ZOLOFT) 25 MG tablet Take 1 (one) tablet (25 mg total) by mouth daily . [START ON 03/12/2024] sertraline (ZOLOFT) 50 MG tablet Take 1 (one) tablet (50 mg total) by mouth daily Start: 03/12/24. ursodioL (ACTIGALL) 250 mg tablet Take 250 mg by mouth . vitamin E 200 UNIT capsule Take 1 (one) capsule (200 Units total) by mouth daily . Xarelto 20 mg Tab TAKE 1 TABLET BY MOUTH TAKE WITH FOOD Allergies Allergen Reactions Hydrocodone Unknown Irritable before bedtime, would take it during the day. Latex Penicillins Toradol [Ketorolac] Vicodin [Hydrocodone-Acetaminop hen] Other (See Comments) Insomnia Dicyclomine GI Intolerance and Unknown Naproxen Other (See Comments) and Hives Allergy since a child Promethazine Unknown Review of Systems All other systems revie (more content not included)... Normal [facility] POC CBC AND DIFFERENTIALon BASOPHILS ABSOLUTE COUNT 0.03 K/mcL Normal 0.00-0.30 [facility] Basophils/100 WBC (Bld) 0.7 % Normal [facility] Eosinophils (Bld) [#/Vol] 0.17 10*3/uL Normal 0.00-0.50 [facility] Eosinophils/100 WBC (Bld) 3.9 % Normal [facility] Erythrocyte distribution width (RBC) [Ratio] 13.2 % Normal 11.6-14.8 [facility] Hematocrit (Bld) [Volume fraction] 42.1 % Normal 36.0-46.0 [facility] Hemoglobin (Bld) [Mass/Vol] 13.9 g/dL Normal 12.0-16.0 [facility] IG ABSOLUTE 0.02 K/mcL Normal 0.00-0.30 [facility] IG PERCENT 0.50 % Normal [facility] Comment on above: Result Comment: The IG parameter is the percentage of metamyelocytes, myelocytes and promyelocytes. An immature granulocyte count (IG) of 1% or more suggests the possibility of infection, an IG count of 3% is very likely related to an infection. Lymphocytes (Bld) [#/Vol] 1.20 10*3/uL Normal 0.90-4.00 [facility] Lymphocytes/100 WBC (Bld) 27.8 % Normal [facility] MCH (RBC) [Entitic mass] 28.6 pg Normal 26.0-34.0 [facility] MCV (RBC) [Entitic vol] 86.6 fL Normal 80.0-100.0 [facility] MEAN CORPUSCULAR HEMOGLOBIN CONC 33.0 g/dL Normal 31.0-37.0 [facility] Monocytes (Bld) [#/Vol] 0.39 10*3/uL Normal 0.30-0.90 [facility] Monocytes/100 WBC (Bld) 9.0 % Normal [facility] NEUTROPHILS ABSOLUTE COUNT 2.51 K/mcL Normal 1.70-7.00 [facility] Neutrophils/100 WBC (Bld) 58.1 % Normal [facility] Platelet mean volume (Bld) [Entitic vol] 11.0 fL Normal 9.4-12.4 [facility] Platelets (Bld) [#/Vol] 161 10*3/uL Normal 150-400 [facility] RBC (Bld) [#/Vol] 4.86 10*6/uL Normal 4.00-5.20 [facility] WBC (Bld) [#/Vol] 4.32 10*3/uL Low 4.50-11.00 [facility] POC LIVER PANEL PLUS [facility] 02-20-2024 Albumin [Mass/Vol] 4.0 g/dL Normal 3.2-5.2 [facility] ALP [Catalytic activity/Vol] 52 U/L Normal 40-140 [facility] ALT [Catalytic activity/Vol] 29 U/L Normal 0-40 [facility] Amylase [Catalytic activity/Vol] 26 U/L Normal 25-115 [facility] Amylase [Catalytic activity/Vol] 16 U/L Normal 7-33 [facility] AST [Catalytic activity/Vol] 25 U/L Normal 0-45 [facility] Bilirubin [Mass/Vol] 0.7 mg/dL Normal 0.0-1.3 [facility] Protein [Mass/Vol] 6.8 g/dL Normal 6.0-8.0 [facility] POC , URINE - [facility] 02-20-2024 Beta HCG ( test) Ql (U) Negative Normal Negative [facility] Comment on above: Order Comment: [facility] Services has implemented the eGFR calculation approach that does not have a coefficient for race that conforms to the NKF-ASN Task Force Recommendations. POC PT-INR - [facility] 02-20-20 24 POC INR (SIG ELITE) 1.7 High 0.8-1.1 [facility] POC URINALYSIS DIPSTICK,AUTO - [facility] 02-20-2024 POC BILIRUBIN, URINE Negative Normal Negative [facility] POC BLOOD, URINE Negative Normal Negative [facility] POC GLUCOSE, URINE Negative Normal Negative [facility] POC KETONES, URINE Negative Normal Negative [facility] POC LEUKOCYTE ESTERASE, URINE Negative Normal Negative [facility] POC NITRITE, URINE Negative Normal Negative [facility] POC PH, URINE 7.0 Normal 5.0-7.0 [facility] POC PROTEIN, URINE Negative Normal Negative [facility] POC SPECIFIC GRAVITY 1.020 Normal 1.005-1.025 [facility] POC UROBILINOGEN 0.2 mg/dL Normal < 2.0 [facility] POC VBG (EPOC) WITH FULL BARNES ASTRID Stack 02-20-2024 BASE EXCESS, VENOUS -0.6 Normal -2.0-2.0 [facility] Comment on above: Order Comment: [facility] Laboratory Services has implemented the eGFR calculation approach that does not have a coefficient for race that conforms to the NKF-ASN Task Force Recommendations. CALCIUM IONIZED 4.7 mg/dL Normal 4.5-5.3 [facility] Comment on above: Order Comment: [facility] Laboratory Services has implemented the eGFR calculation approach that does not have a coefficient for race that conforms to the NKF-ASN Task Force Recommendations. Chloride [Moles/Vol] 105 mmol/L Normal 98-108 [facility] Comment on above: Order Comment: [facility] Laboratory Services has implemented the eGFR calculation approach that does not have a coefficient for race that conforms to the NKF-ASN Task Force Recommendations. Creatinine [Mass/Vol] 0.73 mg/dL Normal 0.40-1.10 [facility] Comment on above: Order Comment: [facility] Laboratory Services has implemented the eGFR calculation approach that does not have a coefficient for race that conforms to the NKF-ASN Task Force Recommendations. Glucose [Mass/Vol] 117 mg/dL High 65-99 [facility] Comment on above: Order Comment: [facility] Services has implemented the eGFR calculation approach that does not have a coefficient for race that conforms to the NKF-ASN Task Force Recommendations. HCO3 (Bld) [Moles/Vol] 24.9 mmol/L Normal 24.0-28.0 [facility] Comment on above: Order Comment: [facility] has implemented the eGFR calculation approach that does not have a coefficient for race that conforms to the NKF-ASN Task Force Recommendations. Hematocrit (Bld) [Volume fraction] 42 % Normal 36-46 [facility] Comment on above: Order Comment: [facility] has implemented the eGFR calculation approach that does not have a coefficient for race that conforms to the NKF-ASN Task Force Recommendations. HEMOGLOBIN, CALCULATED 14.2 g/dL Normal 12.0-16.0 [facility] Comment on above: Order Comment: [facility] has implemented the eGFR calculation approach that does not have a coefficient for race that conforms to the NKF-ASN Task Force Recommendations. Oxygen saturation in Blood 55.2 % Normal 40.0-70.0 [facility] Comment on above: Order Comment: [facility] has implemented the eGFR calculation approach that does not have a coefficient for race that conforms to the NKF-ASN Task Force Recommendations. PCO2 VENOUS 43.0 mm Hg Normal 41.0-51.0 [facility] Comment on above: Order Comment: [facility] has implemented the eGFR calculation approach that does not have a coefficient for race that conforms to the NKF-ASN Task Force Recommendations. PH VENOUS 7.37 Normal 7.32-7.42 [facility] Comment on above: Order Comment: [facility] has implemented the eGFR calculation approach that does not have a coefficient for race that conforms to the NKF-ASN Task Force Recommendations. PO2 VENOUS 30 mm Hg Normal 25-40 [facility] Comment on above: Order Comment: [facility] has implemented the eGFR calculation approach that does not have a coefficient for race that conforms to the NKF-ASN Task Force Recommendations. POC GFR 109 mL/min/1.73 m2 Normal >=60 [facility] Comment on above: Order Comment: [facility] has implemented the eGFR calculation approach that does not have a coefficient for race that conforms to the NKF-ASN Task Force Recommendations. Result Comment: Bria mated GFR was calculated using the 2020 CKD-EPI creatinine equation. POC LACTATE 1.3 mmol/L Normal 0.6-2.0 [facility] Comment on above: Order Comment: [facility] has implemented the eGFR calculation approach that does not have a coefficient for race that conforms to the NKF-ASN Task Force Recommendations. Potassium [Moles/Vol] 3.9 mmol/L Normal 3.5-5.1 [facility] Comment on above: Order Comment: [facility] has implemented the eGFR calculation approach that does not have a coefficient for race that conforms to the NKF-ASN Task Force Recommendations. Sodium [Moles/Vol] 139 mmol/L Normal 135-145 [facility] Comment on above: Order Comment: [facility] has implemented the eGFR calculation approach that does not have a coefficient for race that conforms to the NKF-ASN Task Force Recommendations. Urea nitrogen [Mass/Vol] 8 mg/dL Normal 8-25 [facility] Comment on above: Order Comment: [facility] has implemented the eGFR calculation approach that does not have a coefficient for race that conforms to the NKF-ASN Task Force Recommendations. ED Prov Noteon 02-14-2024 ED Prov Note HPI: 02/14/2024, Time: @LIZZ@ Lana Rivera is a 38 y.o. female presenting to the ED for gradual onset of right lower quadrant pain and history of similar episodes secondary to ovarian cyst, beginning last 3 days ago. The complaint has been constant, moderate in severity, and worsened by nothing. No fever or chills and no vomiting or diarrhea. Patient has had recent CAT scan showing ovarian cyst ROS: Pertinent positives and negatives are stated within HPI, all other systems reviewed and are negative. PAST HISTORY Past Medical History: @[facility]@ Past Surgical History: has a past surgical history that includes Femur Surgery (Right); ORIF radius & ulna fractures (Left); Thyroidectomy; and Hysterectomy. Social History: reports that she has been smoking cigarettes. She has never used smokeless tobacco. She reports current alcohol use. She reports that she does not currently use drugs. Family History: family history is not on file. The patient's home medications have been reviewed. Allergies: Hydrocodone, Latex, Penicillins, Toradol [ketorolac], Vicodin [hydrocodone-acetaminop hen], Dicyclomine, Naproxen, and Promethazine ---- RESULTS --- All laboratory and radiology results have been personally reviewed by myself LABS: Results for orders placed or performed during the hospital encounter of 01/16/24 COVID-19, Molecular Specimen: Nasopharyngeal; Swab Result Value Ref Range SARS-CoV-2 Not Detected Not Detected RADIOLOGY: Interpreted by Radiologist. No orders to display -- NURSING NOTES AND VITALS REVIEWED ---- The nursing notes within the ED encounter and vital signs as below have been reviewed. BP (!) 148/99 Pulse 98 Temp 98.8 degrees F (37.1 degrees C) Resp 18 Ht 5' 6 Wt 104.3 kg (230 lb) LMP 02/04/2022 (Approximate) SpO2 99% BMI 37.12 kg/m Oxygen Saturation Interpretation: Normal -----PHYSICAL EXAM Constitutional/General: Alert and oriented x3, well appearing, non toxic in moderate apparent pain Head: NC/AT Eyes: PERRL, EOMI Mouth: Oropharynx clear, handling secretions, no trismus Neck: Supple, full ROM, no meningeal signs Pulmonary: Lungs clear to auscultation bilaterally, no wheezes, rales, or rhonchi. Not in respiratory distress Cardiovascular: Regular rate and rhythm, no murmurs, gallops, or rubs. 2+ distal pulses Abdomen: Soft, moderate right lower quadrant tenderness to palpation with guarding but no rebound, non distended, Extremities: Moves all extremities x 4. Warm and well perfused Skin: warm and dry without rash Neurologic: GCS 15, Psych: Normal Affect ------- ED COURSE/MEDICAL DECISION MAKING ----- Medications - No data to display Medical Decision Making: Patient states she has had multiple CAT scans showing ovarian cysts with large amount of scarring therefore surgery not recommended according to the patient and this pain feels the exact same therefore I will not repeat the CAT scan to look for appendicitis Counseling: The emergency provider has spoken with the patient and discussed today's results, in addition to providing specific details for the plan of care and counseling regarding the diagnosis and prognosis. Questions are answered at this time and they are agreeable with the plan. IMPRESSION AND DISPOSITION IMPRESSION 1. Right ovarian cyst DISPOSITION Disposition: discharged to home Patient condition is stable Summation Patient Course: Stable ED Medications administered this visit: Medications - No data to display New Prescriptions from this visit: New Prescriptions oxyCODONE-acetaminophen (PERCOCET) 5-325 mg per tablet Take 1 (one) tablet by mouth every 6 (six) hours as needed for pain (Days supply per fill: 3) . Follow-up: Aleena London MD [id number] [facility] [id number] In 3 days Final Impression: 1. Right ovarian cyst (Please note that portions of this note were completed with a voice recognition program. Efforts were made to edit the dictations but occasionally words are mis-transcribed.) Libertad Foster MD 02/14/24 1221 AUTHENTICATED BY LIBERTAD FOSTER, ON 02/14/2024 12:21:14 [facility] ED Prov Noteon 02-11-2024 ED Prov Note ED PROVIDER [facility] NAME: Lana Rivera AGE: 38 y.o. : 1985 VISIT DATE: 02/11/2024 CSN: [id number] PCP: Aleena London MD Chief Complaint Patient presents with Leg Pain History provided by: Patient Leg Pain Associated symptoms: no fatigue Mental Health Problem Presenting symptoms: anxiety Degree of incapacity (severity): Moderate Chronicity: Recurrent Onset quality: Sudden Timing: Intermittent Context: stressful life event Treatment compliance: Untreated Time since last dose of psychoactive medication: Many years. Associated symptoms: anxiety and insomnia Associated symptoms: no decreased need for sleep, no fatigue and no feelings of worthlessness Past Medical History: Diagnosis Date Disease of thyroid gland DVT (deep venous thrombosis) (HCC) RLE Almaz thyroiditis, fibrous variant Hypertension Migraine Past Surgical History: Procedure Laterality Date FEMUR SURGERY Right HYSTERECTOMY (CERVIX REMOVED) ORIF RADIUS & ULNA FRACTURES Left THYROIDECTOMY History reviewed. No pertinent family history. Social History Socioeconomic History Marital status: Tobacco Use Smoking status: Every Day Current packs/day: 1.00 Types: Cigarettes Smokeless tobacco: Never Vaping Use Vaping status: Never Used Substance and Sexual Activity Alcohol use: Yes Comment: occasionally Drug use: Not Currently Social Determinants of Health Financial Resource Strain: High Risk (02/19/2020) Received from [facility] Overall Financial Resource Strain (CARDIA) Difficulty of Paying Living Expenses: Hard Food Insecurity: No Food Insecurity (02/19/2020) Received from [facility] Hunger Vital Sign Worried About Running Out of Food in the Last Year: Never true Ran Out of Food in the Last Year: Never true Transportation Needs: No Transportation Needs (02/19/2020) Received from [facility] PRAPARE - Transportation Lack of Transportation (Medical): No Lack of Transportation (Non-Medical): No Physical Activity: Insufficiently Active (01/27/2020) Received from [facility] Exercise Vital Sign Days of Exercise per Week: 2 days Minutes of Exercise per Session: 20 min Stress: No Stress Concern Present (01/27/2020) Received from [facility] [employer] [place] [employer] - Occupational Stress Questionnaire Feeling of Stress : Only a little Social Connections: Moderately Isolated (01/27/2020) Received from [facility] Social Connection and Isolation Panel [NHANES] Frequency of Communication with Friends and Family: More than three times a week Frequency of Social Gatherings with Friends and Family: Twice a week Attends Yazidi Services: Never Active Member of Clubs or Organizations: No Attends Club or Organization Meetings: Never Marital Status: Housing Stability: Low Risk (01/27/2020) [facility]ceived [facility] Housing Stability Vital Sign Unable to Pay for Housing in the Last Year: No Number of Places Lived in the Last Year: 1 Unstable Housing in the Last Year: No Previous Medications Medication Sig Xarelto 20 mg Tab TAKE 1 TABLET BY MOUTH TAKE WITH FOOD albuterol 90 mcg/actuation inhaler Inhale 2 (two) puffs every 4 (four) hours as needed . amLODIPine (NORVASC) 5 MG tablet Take 1 (one) tablet (5 mg total) by mouth daily . baclofen (LIORESAL) 10 MG tablet Take 2 (two) tablets (20 mg total) by mouth 3 (three) times a day for 5 days . diazePAM (VALIUM) 5 MG tablet Take 1 (one) tablet (5 mg total) by mouth 2 (two) times a day as needed for anxiety (Days supply per fill: 3 DAY SUPPLY . (Patient not taking: Reported on 11/23/2021 .) dicyclomine (BENTYL) 20 mg tablet Take 1 (one) tablet (20 mg total) by mouth 4 (four) times a day before meals and nightly for 5 days . ketoprofen (ORUDIS) 75 MG capsule Take 1 (one) capsule (75 mg total) by mouth 4 (four) times a day as needed for pain . levothyroxine (SYNTHROID, LEVOTHROID) 137 MCG tablet Take 137 mcg by mouth once daily . prochlorperazine (COMPAZINE) 10 MG tablet Take 1 (one) tablet (10 mg total) by mouth every 6 (six) hours as needed for nausea . ursodioL (ACTIGALL) 250 mg tablet Take 250 mg by mouth . vitamin E 200 UNIT capsule Take 1 (one) capsule (200 Units total) by mouth daily . Allergies Allergen Reactions Hydrocodone Unknown Irritable before bedtime, would take it during the day. Latex Penicillins Toradol [Ketorolac] Vicodin [Hydrocodone-Acetaminop hen] Other (See Comments) Insomnia Dicyclomine GI Intolerance and Unknown Naproxen Other (See Comments) and Hives Allergy since a child Promethazine Unknown Review of Systems Constitutional: Negative for fatigue. Psychiatric/Behavioral: The patient is ner (more content not included)... [facility] ED Prov Noteon 01-29-2024 ED Prov Note ED PROVIDER NOTE [facility] NAME: Lana Rivera AGE: 38 y.o. : 1985 VISIT DATE: 01/29/2024 CSN: [id number] PCP: Aleena London MD Chief Complaint Patient presents with Shoulder Pain Patient is a 38-year-old female with a past medical history of hypertension, Almaz's thyroiditis and thyroid disease who presents today for concern of shoulder pain. Patient states she is seen in the emergency department 2 weeks prior after she had a injury to her left shoulder. Patient states she has a follow-up with appoint with orthopedics on February 14 for an MRI for concern of possible rotator cuff injury. Patient requesting pain medication in the interim. Patient states he is not any pain medication currently. Patient denies any additional injury since remote injury. Patient denies any associatedchest pain, shortness of breath, lightness, dizziness or syncope. Past Medical History: Diagnosis Date Disease of thyroid gland Almaz thyroiditis, fibrous variant Hypertension Migraine Past Surgical History: Procedure Laterality Date FEMUR SURGERY Right HYSTERECTOMY (CERVIX REMOVED) ORIF RADIUS & ULNA FRACTURES Left THYROIDECTOMY History reviewed. No pertinent family history. Social History Socioeconomic History Marital status: Tobacco Use Smoking status: Every Day Current packs/day: 1.00 Types: Cigarettes Smokeless tobacco: Never Vaping Use Vaping status: Never Used Substance and Sexual Activity Alcohol use: Yes Comment: occasionally Drug use: Not Currently Social Determinants of Health Financial Resource Strain: High Risk (02/19/2020) Received from [facility] Overall Financial Resource Strain (CARDIA) Difficulty of Paying Living Expenses: Hard Food Insecurity: No Food Insecurity (02/19/2020) Received from [facility] Hunger Vital Sign Worried About Running Out of Food in the Last Year: Never true Ran Out of Food in the Last Year: Never true Transportation Needs: No Transportation Needs (02/19/2020) Received from [facility] PRAPARE - Transportation Lack of Transportation (Medical): No Lack of Transportation (Non-Medical): No Physical Activity: Insufficiently Active (01/27/2020) Received from [facility] Exercise Vital Sign Days of Exercise per Week: 2 days Minutes of Exercise per Session: 20 min Stress: No Stress Concern Present (01/27/2020) Received from [facility] [employer] [place] [employer] - Occupational Stress Questionnaire Feeling of Stress : Only a little Social Connections: Moderately Isolated (01/27/2020) Received from [facility] Social Connection and Isolation Panel [NHANES] Frequency of Communication with Friends and Family: More than three times a week Frequency of Social Gatherings with Friends and Family: Twice a week Attends Yazidi Services: Never Active Member of Clubs or Organizations: No Attends Club or Organization Meetings: Never Marital Status: Housing Stability: Low Risk (01/27/2020) Received from [facility] Housing Stability Vital Sign Unable to Pay for Housing in the Last Year: No Number of Places Lived in the Last Year: 1 Unstable Housing in the Last Year: No Previous Medications Medication Sig albuterol 90 mcg/actuation inhaler Inhale 2 (two) puffs every 4 (four) hours as needed . amLODIPine (NORVASC) 5 MG tablet Take 1 (one) tablet (5 mg total) by mouth daily . baclofen (LIORESAL) 10 MG tablet Take 2 (two) tablets (20 mg total) by mouth 3 (three) times a day for 5 days . diazePAM (VALIUM) 5 MG tablet Take 1 (one) tablet (5 mg total) by mouth 2 (two) times a day as needed for anxiety (Days supply per fill: 3 DAY SUPPLY . (Patient not taking: Reported on 11/23/2021 .) dicyclomine (BENTYL) 20 mg tablet Take 1 (one) tablet (20 mg total) by mouth 4 (four) times a day before meals and nightly for 5 days . ketoprofen (ORUDIS) 75 MG capsule Take 1 (one) capsule (75 mg total) by mouth 4 (four) times a day as needed for pain . levothyroxine (SYNTHROID, LEVOTHROID) 137 MCG tablet Take 137 mcg by mouth once daily . prochlorperazine (COMPAZINE) 10 MG tablet Take 1 (one) tablet (10 mg total) by mouth every 6 (six) hours as needed for nausea . ursodioL (ACTIGALL) 250 mg tablet Take 250 mg by mouth . vitamin E 200 UNIT capsule Take 1 (one) capsule (200 Units total) by mouth daily . Allergies Allergen Reactions Escitalopram Headache and Unknown made her feel light headed and issues with focus. Sertraline Headache and Other (See Comments) Dizzy and headache Hydrocodone Unknown Irritable before bedtime, would take it during the day. Latex Penicillins Toradol [Ketorolac] Vicodin [Hydrocodone-Acetaminop hen] Other (See Comments) In (more content not included)... Normal [facility] COVID-19, MOLECULARon 2023 SARS-CoV-2 (COVID-19) Ab IA Ql Not detected Normal Not Detected [facility] Comment on above: Result Comment: Test ing was performed using the [employer] ID NOW COVID-19 assay on the ID NOW platform. This test has not been approved for use in asymptomatic patients and its performance in this patient population has not been evaluated. Negative results do not rule out the presence of SARS-CoV-2/COVID-19. ED Prov Noteon 01-16-2024 ED Prov Note PCP - Lindy London gbe, MD Chief Complaint Patient presents with Shoulder Pain HPI Lana is a pleasant 38-year-old female presenting here with family for evaluation of worsening left anterior/superior shoulder area pain in the context of injury a couple weeks ago. She notes that she injured herself lifting something heavy on about January 03 and was seen here on January 06 with shoulder x-ray concern for possible mild AC separation. She is placed in a sling and had follow-up with her doctor who recommended etoledac. She has not been able to fill the medicine, but did take her ketoprofen yesterday. Otherwise, she notes cough with occasional sputum, sore throat and COVID-19 exposure. No chest pain, shortness of breath. No GI or symptoms. No numbness or weakness. No new injury. MDM/COURSE I did personally review Lana's past medical history, surgical history, social history, as well as family history (when relevant). In this case, I also oversaw the her drug management by reviewing her medication list, allergy list, as well as the medications that I prescribed during the ED course and/or recommended as an out-patient (including possible OTC medications such as acetaminophen, NSAIDs , etc). Her past medical problem list included: Active Ambulatory Problems Diagnosis Date Noted No Active Ambulatory Problems Resolved Ambulatory Problems Diagnosis Date Noted No Resolved Ambulatory Problems Past Medical History: Diagnosis Date Disease of thyroid gland Almaz thyroiditis, fibrous variant Hypertension Migraine ED MEDICATIONS GIVEN: Medications - No data to display After reviewing the items above, I did look at previous medical documentation, such as recent hospitalizations, office visits, and/or recent consultations with PCP/specialist. SDOH: Another factor that I considered in Lana's care was her Social Determinants of Health (SDOH). During this ED encounter, she did NOT appear to have any significant issues identified. LAB TESTING: Labs were obtained during this encounter. Labs were not compared to prior values COVID is negative RADIOLOGY: I did consider radiological studies for Lana's care today. Radiology testing was notable for shoulder x-ray stable from prior with minimal AC separation on my independent review DIFFERENTIAL DIAGNOSES: Some general clinical impressions that I considered included fracture, AC separation, contusion, bronchitis, pneumonia ED COURSE: Patient feels like she is developing some bronchitis and notes that she already has refill of her albuterol from her primary care provider. She would like to try course of prednisone. She has orthopedic follow-up already scheduled. On this particular ED encounter, I did utilize shared decision making. After consideration of the risks of hospitalization such as nosocomial infections, falls, thromboembolic disease as well as being discharged(worsening condition or complications up to cardiopulmonary arrest) at this time the most appropriate disposition for Lana is Discharged . IMPRESSION 1. Chronic left shoulder pain 2. Bronchitis 3. COVID-19 virus RNA not detected Past Medical History Past Medical History: Diagnosis Date Disease of thyroid gland Almaz thyroiditis, fibrous variant Hypertension Migraine Past Surgical History Past Surgical History: Procedure Laterality Date FEMUR SURGERY Right HYSTERECTOMY (CERVIX REMOVED) ORIF RADIUS & ULNA FRACTURES Left THYROIDECTOMY Family History History reviewed. No pertinent family history. Social History Social History Tobacco Use Smoking status: Every Day Current packs/day: 1.00 Types: Cigarettes Smokeless tobacco: Never Vaping Use Vaping status: Never Used Substance Use Topics Alcohol use: Yes Comment: occasionally Drug use: Not Currently Allergies Allergies Allergen Reactions Escitalopram Headache and Unknown made her feel light headed and issues with focus. Sertraline Headache and Other (See Comments) Dizzy and headache Hydrocodone Unknown Irritable before bedtime, would take it during the day. Latex Penicillins Toradol [Ketorolac] Vicodin [Hydrocodone-Acetaminop hen] Other (See Comments) Insomnia Dicyclomine GI Intolerance and Unknown Naproxen Other (See Comments) and Hives Allergy since a child Promethazine Unknown Medications Active Home Medications Medication Sig Take Last Dose On Take Morning of Surgery Comment(s) albuterol 90 mcg/actuation inhaler Inhale 2 (two) puffs every 4 (four) hours as needed . amLODIPine (NORVASC) 5 MG tablet Take 1 (one) tablet (5 mg total) by mouth daily . baclofen (LIORESAL) 10 MG tablet Take 2 (two) tablets (20 mg total) by mouth 3 (three) times a day for 5 days . diazePAM (VALIUM) 5 MG tablet Take 1 (one) tablet (5 mg total) by mouth 2 (two) times a day as needed for anxiety (Days supply per fill: (more content not included)... [facility] XR CHEST PA/APon 01-16-2024 XR CHEST PA/AP EXAMINATION: XR CHEST PA/AP 01/16/2024 12:50 PM HISTORY: ORDERING SYSTEM PROVIDED HISTORY: Cough, TECHNOLOGIST PROVIDED HISTORY: Illness/Other Reason for exam: cough sore throat and chest ache awoke feeling ill this morning Cancer History: n Surgery, RadiationHistory: n/a Encounter Type: Initial Additional signs and symptoms: na COMPARISON: Chest x-rays, 09/25/2021. FINDINGS: Single view of the chest obtained. Heart size normal. Mediastinal contours normal. No pleural effusion. No airspace consolidation. No pulmonary edema. No evidence of acute pneumonia. IMPRESSION: Lungs are clear. No evidence of pneumonia. No acute findings. [facility]/margiew Workstation ID: [id number] Dictated by: SHILPI PATEL on MonJan 16, 2024 1:10:19 PM EDT Transcribed by: OLY TINAJERO on MonJan 16, 2024 1:25:31 PM EDT Finalized by: SHILPI PATEL on MonJan 16, 2024 4:29:21 PM EDT [facility] Comment on above: Order Comment: Injur y/Trauma or Illness?:Illness/OtherHow long have you had these symptoms (acute/chronic)?:AcuteReason for exam?:cough sore throat and chest ache awoke feeling ill this morningHistory of cancer?:nSurgeries, chemotherapy, or radiation?:n/aType of Exam?:InitialAdditional signs and symptoms?:na XR SHOULDER LEFT 2+ VIEWS (S TANDARD)on 01-16-2024 XR SHOULDER LEFT 2+ VIEWS (STANDARD) EXAMINATION: XR SHOULDER LEFT 2+ VIEWS (STANDARD) 01/16/2024 12:50 pm HISTORY: ORDERING SYSTEM PROVIDED HISTORY: Worsening pain s/p injury 2 weeks ago, TECHNOLOGIST PROVIDED HISTORY: Injury/Trauma Reason for exam: lifting injury today heard and felt a pop Cancer History: n Surgery, RadiationHistory: n/a Encounter Type: Initial Mechanism of injury: lifting injury ORDERING SYSTEM PROVIDED DIAGNOSIS CODES: COMPARISON: Left shoulder x-rays, 01/07/2024. FINDINGS: Three views obtained. Bone mineralization appears normal. Alignment is normal. Widening of the acromioclavicular joint to approximately 6 mm is stable. Glenohumeral joint intact. No fracture. No dislocation. No degenerative changes. IMPRESSION: 1. There is no acute fracture or dislocation. 2. There is some widening of the acromioclavicular joint which is stable. This could be a chronic AC joint separation. No change. DM/r Workstation ID: [id number] Dictated by: SHILPI PATEL on MonJan 16, 2024 1:09:35 PM EDT Transcribed by: MARIO MEZA on MonJan 16, 2024 1:21:47 PM EDT Finalized by: SHILPI PATEL on MonJan 16, 2024 4:29:26 PM EDT [facility] Comment on above: Order Comment: Injur y/Trauma or Illness?:Injury/TraumaHow long have you had these symptoms (acute/chronic)?:AcuteReason for exam?:lifting injury today heard and felt a popHistory of cancer?:nSurgeries, chemotherapy, or radiation?:n/aType of Exam?:InitialMechanism of injury?:lifting injury ED Prov Noteon 01-07-2024 ED Prov Note ED PROVIDER [facility] NAME: Lana Rivera AGE: 38 y.o. 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 Or any previous shoulder chronic problems. Past Medical History: Diagnosis Date Disease of thyroid gland Almaz thyroiditis, fibrous variant Hypertension Migraine Past Surgical History: Procedure Laterality Date FEMUR SURGERY Right HYSTERECTOMY (CERVIX REMOVED) ORIF RADIUS & ULNA FRACTURES Left THYROIDECTOMY History reviewed. No pertinent family history. Social History Socioeconomic History Marital status: Tobacco Use Smoking status: Every Day Current packs/day: 1.00 Types: Cigarettes Smokeless tobacco: Never Vaping Use Vaping status: Never Used Substance and Sexual Activity Alcohol use: Yes Comment: occasionally Drug use: Not Currently Social Determinants of Health Financial Resource Strain: High Risk (02/19/2020) Received from [facility] Overall Financial Resource Strain (CARDIA) Difficulty of Paying Living Expenses: Hard Food Insecurity: No Food Insecurity (02/19/2020) Received from [facility] Hunger Vital Sign Worried About Running Out of Food in the Last Year: Never true Ran Out of Food in the Last Year: Never true Transportation Needs: No Transportation Needs (02/19/2020) Received from [facility] PRAPARE - Transportation Lack of Transportation (Medical): No Lack of Transportation (Non-Medical): No Physical Activity: Insufficiently Active (01/27/2020) Received from [facility] Exercise Vital Sign Days of Exercise per Week: 2 days Minutes of Exercise per Session: 20 min Stress: No Stress Concern Present (01/27/2020) Received from [facility] [place] [facility] [employer] [facility] - Occupational Stress Questionnaire Feeling of Stress : Only a little Social Connections: Moderately Isolated (01/27/2020) Received from [facility] Social Connection and Isolation Panel [NHANES] Frequency of Communication with Friends and Family: More than three times a week Frequency of Social Gatherings with Friends and Family: Twice a week Attends Yazidi Services: Never Active Member of Clubs or Organizations: No Attends Club or Organization Meetings: Never Marital Status: Housing Stability: Low Risk (01/27/2020) Received [facility], [facility] Housing Stability Vital Sign Unable to Pay for Housing in the Last Year: No Number of Places Lived in the Last Year: 1 Unstable Housing in the Last Year: No Previous Medications Medication Sig albuterol 90 mcg/actuation inhaler Inhale 2 (two) puffs every 4 (four) hours as needed . amLODIPine (NORVASC) 5 MG tablet Take 1 (one) tablet (5 mg total) by mouth daily . baclofen (LIORESAL) 10 MG tablet Take 2 (two) tablets (20 mg total) by mouth 3 (three) times a day for 5 days . diazePAM (VALIUM) 5 MG tablet Take 1 (one) tablet (5 mg total) by mouth 2 (two) times a day as needed for anxiety (Days supply per fill: 3 DAY SUPPLY . (Patient not taking: Reported on 11/23/2021 .) dicyclomine (BENTYL) 20 mg tablet Take 1 (one) tablet (20 mg total) by mouth 4 (four) times a day before meals and nightly for 5 days . ketoprofen (ORUDIS) 75 MG capsule Take 1 (one) capsule (75 mg total) by mouth 4 (four) times a day as needed for pain . levothyroxine (SYNTHROID, LEVOTHROID) 137 MCG tablet Take 137 mcg by mouth once daily . prochlorperazine (COMPAZINE) 10 MG tablet Take 1 (one) tablet (10 mg total) by mouth every 6 (six) hours as needed for nausea . ursodioL (ACTIGALL) 250 mg tablet Take 250 mg by mouth . vitamin E 200 UNIT capsule Take 1 (one) capsule (200 Units total) by mouth daily . Allergies Allergen Reactions Escitalopram Headache and Unknown made her feel light headed and issues with focus. Sertraline Headache and Other (See Comments) Dizzy and headache Hydrocodone Unknown Irritable before bedtime, would take it during the day. Latex Penicillins Toradol [Ketorolac] Vicodin [Hydrocodone-Acetaminop hen] Other (See Comments) Insomnia Dicyclomine GI Intolerance and Unknown Naproxen Other (See Comments) and Hives Allergy since a child Promethazine Unknown Review of Systems All other systems reviewed and are negative. Patient Vitals for the past 24 hrs: BP Temp Pulse Resp SpO2 Height Weight 01/07/24 0836 (!) 139/99 99.4 degrees F (37.4 deg (more content not included)... [facility] XR SHOULDER LEFT 2+ VIEWS (S TANDARD)on 01-07-2024 XR SHOULDER LEFT 2+ VIEWS (STANDARD) EXAMINATION: XR SHOULDER LEFT 2+ VIEWS (STANDARD) HISTORY: Dx: S43.52XA (Sprain of left acromioclavicular ligament, initial encounter) Injury/Trauma or Illness?:Injury/Trauma How long have you had these symptoms (acute/chronic)?:Acute ORDERING SYSTEM PROVIDED HISTORY: injury, TECHNOLOGIST PROVIDED HISTORY: Injury/Trauma Reason for exam: L shoulder pain Cancer History: n Surgery, RadiationHistory: n/a Encounter Type: Initial Mechanism of injury: C/o L shoulder pain starting Thurs after lifting boxes and heard a popping/cracking sound ORDERING SYSTEM PROVIDED DIAGNOSIS CODES: S43.52XA Sprain of left acromioclavicular ligament, initial encounter COMPARISON: None. IMPRESSION: No evidence of acute fracture or dislocation. Prominence of the AC joint interval at 0.7 cm may be correlated for low-grade AC joint injury. Workstation ID: [id number] Dictated by: BELKYS KITCHEN on [place] Jan 07, 2024 8:59:23 AM EDT Transcribed by: BELKYS KITCHEN on [place] Jan 07, 2024 8:59:23 AM EDT Finalized by: BELKYS KITCHEN on [place] Jan 07, 2024 8:59:23 AM EDT [facility] Comment on above: Order Comment: Injur y/Trauma or Illness?:Injury/TraumaHow long have you had these symptoms (acute/chronic)?:AcuteReason for exam?:L shoulder painHistory of cancer?:nSurgeries, chemotherapy, or radiation?:n/aType of Exam?:InitialMechanism of injury?:C/o L shoulder pain starting Thurs after lifting boxes and heard a popping/cracking sound ED Prov Noteon 12-01-2023 ED Prov Note ED PROVID[facility] NAME: Lana Rivera AGE: 38 y.o. : 1985 VISIT DATE: 12/01/2023 CSN: [id number] PCP: Aleena London MD Chief Complaint Patient presents with Ankle Pain History provided by: Patient Ankle Pain Location: Ankle Time since incident: 10 days Severity: Moderate Injury: yes Mechanism of injury: fall and twisted Ankle location: R ankle Pain details: Quality: Aching Onset quality: Gradual Severity: Moderate Timing: Constant Progression: Unchanged Foreign body present: No foreign bodies Ineffective treatments: Immobilization Associated symptoms: decreased ROM, stiffness, swelling and tenderness Associated symptoms: no numbness Past Medical History: Diagnosis Date Disease of thyroid gland Almaz thyroiditis, fibrous variant Hypertension Migraine Past Surgical History: Procedure Laterality Date FEMUR SURGERY Right HYSTERECTOMY (CERVIX REMOVED) ORIF RADIUS & ULNA FRACTURES Left THYROIDECTOMY History reviewed. No pertinent family history. Social History Socioeconomic History Marital status: Tobacco Use Smoking status: Every Day Current packs/day: 1.00 Types: Cigarettes Smokeless tobacco: Never Vaping Use Vaping status: Never Used Substance and Sexual Activity Alcohol use: Yes Comment: occasionally Drug use: Not Currently Social Determinants of Health Financial Resource Strain: High Risk (02/19/2020) Received from [facility] Overall Financial Resource Strain (CARDIA) Difficulty of Paying Living Expenses: Hard Food Insecurity: No Food Insecurity (02/19/2020) Received from [facility] Hunger Vital Sign Worried About Running Out of Food in the Last Year: Never true Ran Out of Food in the Last Year: Never true Transportation Needs: No Transportation Needs (02/19/2020) Received from [facility] PRAPARE - Transportation Lack of Transportation (Medical): No Lack of Transportation (Non-Medical): No Physical Activity: Insufficiently Active (01/27/2020) Received from [facility] Exercise Vital Sign Days of Exercise per Week: 2 days Minutes of Exercise per Session: 20 min Stress: No Stress Concern Present (01/27/2020) Received from [facility] [place] [employer] [facility] - Occupational Stress Questionnaire Feeling of Stress : Only a little Social Connections: Moderately Isolated (01/27/2020) Received from [facility] Social Connection and Isolation Panel [NHANES] Frequency of Communication with Friends and Family: More than three times a week Frequency of Social Gatherings with Friends and Family: Twice a week Attends Yazidi Services: Never Active Member of Clubs or Organizations: No Attends Club or Organization Meetings: Never Marital Status: Housing Stability: Low Risk (01/27/2020) Received [facility] Housing Stability Vital Sign Unable to Pay for Housing in the Last Year: No Number of Places Lived in the Last Year: 1 In the last 12 months, was there a time when you did not have a steady place to sleep or slept in a group home (including now)?: No Previous Medications Medication Sig albuterol 90 mcg/actuation inhaler Inhale 2 (two) puffs every 4 (four) hours as needed . amLODIPine (NORVASC) 5 MG tablet Take 1 (one) tablet (5 mg total) by mouth daily . baclofen (LIORESAL) 10 MG tablet Take 2 (two) tablets (20 mg total) by mouth 3 (three) times a day for 5 days . diazePAM (VALIUM) 5 MG tablet Take 1 (one) tablet (5 mg total) by mouth 2 (two) times a day as needed for anxiety (Days supply per fill: 3 DAY SUPPLY . (Patient not taking: Reported on 11/23/2021 .) dicyclomine (BENTYL) 20 mg tablet Take 1 (one) tablet (20 mg total) by mouth 4 (four) times a day before meals and nightly for 5 days . ketoprofen (ORUDIS) 75 MG capsule Take 1 (one) capsule (75 mg total) by mouth 4 (four) times a day as needed for pain . levothyroxine (SYNTHROID, LEVOTHROID) 137 MCG tablet Take 137 mcg by mouth once daily . prochlorperazine (COMPAZINE) 10 MG tablet Take 1 (one) tablet (10 mg total) by mouth every 6 (six) hours as needed for nausea . ursodioL (ACTIGALL) 250 mg tablet Take 250 mg by mouth . vitamin E 200 UNIT capsule Take 1 (one) capsule (200 Units total) by mouth daily . Allergies Allergen Reactions Escitalopram Headache and Unknown made her feel light headed and issues with focus. Sertraline Headache and Other (See Comments) Dizzy and headache Acetaminophen Other (See Comments) Hydrocodone Unknown Latex Penicillins Toradol [Ketorolac] Vicodin [Hydrocodone-Acetaminop hen] Other (See Comments) Insomnia Dicyclomine GI Intolerance and Unknown Naproxen Other (See Comments) and Hives Allergy since a child Promet (more content not included)... [facility] XR ANKLE RIGHT 3+ VIEWS (STA NDARD)on 12-01-2023 XR ANKLE RIGHT 3+ VIEWS (STANDARD) EXAMINATION: XR ANKLE RIGHT 3+ VIEWS (STANDARD) HISTORY: ORDERING SYSTEM PROVIDED HISTORY: persistent pain AND swelling p fall/twist 10 days ago, TECHNOLOGIST PROVIDED HISTORY: Injury/Trauma Reason for exam: persistent pain AND swelling p fall/twist 10 days ago Cancer History: unknown Surgery, RadiationHistory: unknown Encounter Type: Initial Mechanism of injury: fall ORDERING SYSTEM PROVIDED DIAGNOSIS CODES: COMPARISON: None FINDINGS: Three views of the right ankle. No acute fracture. Small Achilles and plantar calcaneal enthesophytes. Joints and ankle mortise are anatomically aligned. Joint spaces are preserved. Soft tissues are within normal limits. IMPRESSION: No acute osseous abnormality. /[facility] Workstation ID: [id number] Dictated by: JOHANNA MARCH on MonDec 01, 2023 1:52:10 PM EDT Transcribed by: CATINA NIETO on MonDec 01, 2023 2:05:31 PM EDT Finalized by: JOHANNA MARCH on MonDec 01, 2023 4:58:59 PM EDT [facility] Comment on above: Order Comment: Injur y/Trauma or Illness?:Injury/TraumaHow long have you had these symptoms (acute/chronic)?:AcuteReason for exam?:persistent pain AND swelling p fall/twist 10 days agoHistory of cancer?:unknownSurgeries, chemotherapy, or radiation?:unknownType of Exam?:InitialMechanism of injury?:fall ED Prov Noteon 11-25-2023 ED Prov Note HPI: 11/25/2023, Time: @NOWNR@ Lana Desai Ronnell is a 38 y.o. female presenting to the ED for left-sided neck pain which is chronic with occasional flareup started after she turned her head upon awakening, beginning 3 days ago. The complaint has been constant, moderate in severity, and worsened by changing position. Also complains of right foot pain started after walking about a week and a half ago. Patient states she has a history of cervical disc issue. Her primary care doc was unable to see her and apparently is retiring ROS: Pertinent positives and negatives are stated within HPI, all other systems reviewed and are negative. PAST HISTORY Past Medical History: @[facility]@ Past Surgical History: has a past surgical history that includes Femur Surgery (Right); ORIF radius & ulna fractures (Left); Thyroidectomy; and Hysterectomy. Social History: reports that she has been smoking cigarettes. She has never used smokeless tobacco. She reports current alcohol use. She reports that she does not currently use drugs. Family History: family history is not on file. The patient's home medications have been reviewed. Allergies: Escitalopram, Sertraline, Acetaminophen, Hydrocodone, Latex, Penicillins, Toradol [ketorolac], Vicodin [hydrocodone-acetaminop hen], Dicyclomine, Naproxen, and Promethazine ---- RESULTS --- All laboratory and radiology results have been personally reviewed by myself LABS: Results for orders placed or performed during the hospital encounter of 06/23/22 POC Urinalysis Dipstick, Auto Result Value Ref Range Spec Grav, UA 1.020 1.005 - 1.025 pH, UA 7.0 5.0 - 7.0 Protein, UA Negative Negative mg/dL Glucose, UA Negative Negative mg/dL Ketones, UA Negative Negative mg/dL Bilirubin, UA Negative Negative Urobilinogen, UA 0.2 <2.0 mg/dL Blood, UA Negative Negative Nitrite, UA Negative Negative Leukocyte Esterase, UA Negative Negative RADIOLOGY: Interpreted by Radiologist. XR Foot Right 3+ Views (Standard) Preliminary Result No acute bony abnormality or radiopaque foreign body in the right foot. [facility]/[employer] Workstation ID: [id number] -- NURSING NOTES AND VITALS REVIEWED ---- The nursing notes within the ED encounter and vital signs as below have been reviewed. BP (!) 125/101 (BP Location: Left arm, Patient Position: Sitting) Pulse 96 Temp 99.9 degrees F (37.7 degrees C) (Temporal) Resp 16 Ht 5' 6 Wt 104.3 kg (230 lb) LMP 02/04/2022 (Approximate) SpO2 100% BMI 37.12 kg/m Oxygen Saturation Interpretation: Normal -----PHYSICAL EXAM Constitutional/General: Alert and oriented x3, well appearing, non toxic in moderate apparent discomfort Head: NC/AT Eyes: PERRL, EOMI Mouth: Oropharynx clear, handling secretions, no trismus Neck: Supple, full ROM, no meningeal signs, moderate tenderness to palpation over the left levator scapula and the cervical paraspinal muscles with spasm and range of motion limited secondary to pain Pulmonary: Lungs clear to auscultation bilaterally, no wheezes, rales, or rhonchi. Not in respiratory distress Cardiovascular: Regular rate and rhythm, no murmurs, gallops, or rubs. 2+ distal pulses Abdomen: Soft, non tender, non distended, Extremities: Moves all extremities x 4. Warm and well perfused, right foot: Moderate tenderness to palpation over the lateral aspect of the foot with nodule over the fifth metatarsal Skin: warm and dry without rash Neurologic: GCS 15, Psych: Normal Affect ------- ED COURSE/MEDICAL DECISION MAKING ----- Medications - No data to display Medical Decision Making: Suspected torticollis and/or cervical disc disease, will provide short course of [place] for pain and patient to continue ketoprofen and baclofen and will obtain x-ray to rule out stress fracture and refer to podiatry Counseling: The emergency provider has spoken with the patient and discussed today's results, in addition to providing specific details for the plan of care and counseling regarding the diagnosis and prognosis. Questions are answered at this time and they are agreeable with the plan. IMPRESSION AND DISPOSITION IMPRESSION 1. Torticollis 2. Sprain of right foot, initial encounter DISPOSITION Disposition: discharged to home Patient condition is stable Summation Patient Course: Stable ED Medications administered this visit: Medications - No data to display New Prescriptions from this visit: New Prescriptions traMADol (ULTRAM) 50 mg tablet Take 1 (one) tablet (50 mg total) by mouth (more content not included)... [facility] XR FOOT RIGHT 3+ VIEWS (MOI WELDON)on 11-25-2023 XR FOOT RIGHT 3+ VIEWS (STANDARD) EXAMINATION: XR FOOT RIGHT 3+ VIEWS (STANDARD) 11/25/2023 9:19 am HISTORY: ORDERING SYSTEM PROVIDED HISTORY: Injury, TECHNOLOGIST PROVIDED HISTORY: Injury/Trauma Reason for exam: R foot pain Cancer History: unknown Surgery, RadiationHistory: unknown Encounter Type: Initial Mechanism of injury: pain and lump on lateral foot x 2 1/2 wks. May have stepped on something but unsure ORDERING SYSTEM PROVIDED DIAGNOSIS CODES: COMPARISON: None. FINDINGS: Three views of the right foot were obtained. No acute fracture or malalignment. Cortical surfaces are smooth in contour. Joint space is maintained. 4 mm plantar calcaneal spur is noted. Soft tissues demonstrate no radiopaque foreign body. IMPRESSION: No acute bony abnormality or radiopaque foreign body in the right foot. [facility]/[employer] Workstation ID: [id number] Dictated by: GREYSON SCHROEDER on Sat Nov 25, 2023 9:36:41 AM EDT Transcribed by: KENNY ARRIAGA on Sat Nov 25, 2023 9:39:36 AM EDT Finalized by: GREYSON SCHROEDER on Sat Nov 25, 2023 10:29:24 AM EDT [facility] Comment on above: Order Comment: Injur y/Trauma or Illness?:Injury/TraumaHow long have you had these symptoms (acute/chronic)?:AcuteReason for exam?:R foot painHistory of cancer?:unknownSurgeries, chemotherapy, or radiation?:unknownType of Exam?:InitialMechanism of injury?:pain and lump on lateral foot x 2 1/2 wks. May have stepped on something but unsure ED Prov Noteon 11-03-2023 ED Prov Note [place] ED Physician Note: NAME: Lana Rivera 38 y.o. CSN: [id number] PCP: Aleena Lnodon MD ED Course / Medical Decision Making: She has chronic neck pain which she states that prednisone works well for her. She also states Percocet helps. She has listed an allergy to hydrocodone Vicodin Naprosyn. I did give her the prednisone since she states it helps her. Though she was told to use the prednisone cautiously since this is the third time that she has gotten prednisone for pain. Given this would be the fourth time she was given Percocet in the ER note last month I could not give her Percocet for pain.. I did give her a muscle relaxant Flexeril. At this time I do not feel any imaging is indicated. She also had a rash which looks like a dermatitis. She was told to place hydrocortisone on the rash. Medical Decision Making Amount and/or Complexity of Data Reviewed Independent Historian: Details: Patient gave history Clinical Impression: 1. Strain of neck muscle, initial encounter Disposition: Patient is being discharged to home New Prescriptions predniSONE (DELTASONE) 10 MG tablet Take 5 (five) tablets (50 mg total) by mouth daily for 5 days . cyclobenzaprine (FLEXERIL) 10 MG tablet Take 1 (one) tablet (10 mg total) by mouth 3 (three) times a day as needed for muscle spasms . History: Chief Complaint: Neck Pain HPI: The history was obtained from the patient. She is a 38 y.o. female who presents with a chief complaint of Neck Pain. HPI patient has a history of chronic neck discomfort. Patient has been seen on 10-04, and for the same symptoms. She states that normally a muscle relaxant prednisone and Percocet works for her neck discomfort. Patient states she missed stepped and kam her neck. She does have a history of chronic neck problems with degenerative disease. She has no weakness or numbness or tingling in her upper extremities. PMHx: Past Medical History: Diagnosis Date Disease of thyroid gland Almaz thyroiditis, fibrous variant Hypertension Migraine PMSx: Past Surgical History: Procedure Laterality Date FEMUR SURGERY Right HYSTERECTOMY (CERVIX REMOVED) ORIF RADIUS & ULNA FRACTURES Left THYROIDECTOMY FAM. Hx: History reviewed. No pertinent family history. SOC. Hx: Social History Socioeconomic History Marital status: Tobacco Use Smoking status: Every Day Packs/day: 1 Types: Cigarettes Smokeless tobacco: Never Vaping Use Vaping Use: Never used Substance and Sexual Activity Alcohol use: Yes Comment: occasionally Drug use: Not Currently MEDs: Previous Medications Medication Sig albuterol 90 mcg/actuation inhaler Inhale 2 (two) puffs every 4 (four) hours as needed . amLODIPine (NORVASC) 5 MG tablet Take 1 (one) tablet (5 mg total) by mouth daily . baclofen (LIORESAL) 10 MG tablet Take 2 (two) tablets (20 mg total) by mouth 3 (three) times a day for 5 days . diazePAM (VALIUM) 5 MG tablet Take 1 (one) tablet (5 mg total) by mouth 2 (two) times a day as needed for anxiety (Days supply per fill: 3 DAY SUPPLY . (Patient not taking: Reported on 11/23/2021 .) dicyclomine (BENTYL) 20 mg tablet Take 1 (one) tablet (20 mg total) by mouth 4 (four) times a day before meals and nightly for 5 days . ketoprofen (ORUDIS) 75 MG capsule Take 1 (one) capsule (75 mg total) by mouth 4 (four) times a day as needed for pain . levothyroxine (SYNTHROID, LEVOTHROID) 137 MCG tablet Take 137 mcg by mouth once daily . prochlorperazine (COMPAZINE) 10 MG tablet Take 1 (one) tablet (10 mg total) by mouth every 6 (six) hours as needed for nausea . ursodioL (ACTIGALL) 250 mg tablet Take 250 mg by mouth . vitamin E 200 UNIT capsule Take 1 (one) capsule (200 Units total) by mouth daily . ALL: Allergies Allergen Reactions Escitalopram Headache and Unknown made her feel light headed and issues with focus. Sertraline Headache and Other (See Comments) Dizzy and headache Acetaminophen Other (See Comments) Hydrocodone Unknown Latex Penicillins Toradol [Ketorolac] Vicodin [Hydrocodone-Acetaminop hen] Other (See Comments) Insomnia Dicyclomine GI Intolerance and Unknown Naproxen Other (See Comments) and Hives Allergy since a child Promethazine Unknown ROS: Review of Systems Constitutional: Negative. Musculoskeletal: Positive for neck pain. Negative for arthralgias, back pain, gait problem, joint swelling, myalgias and neck stiffness. Skin: Positive for rash. Negative for color change, pallor and wound. Neurological: Negative for dizziness, tremors, seizures, syncope, facial asymmetry, speech difficulty, weakness, light-headedness, numbness and headaches. All other systems reviewed and are negative. Positives and pertinent negatives as per HPI. All other systems were reviewed and are negative. Physical Exam: Patient Vitals for the past 24 hrs: BP Temp Temp src Pulse Re (more content not included)... [facility] ED Prov Noteon 10-20-2023 ED Prov Note ED PROVID[facility] NAME: Lana Rivera AGE: 38 y.o. : 1985 VISIT DATE: 10/20/2023 CSN: [id number] PCP: Aleena London MD No chief complaint on file. Patient is a 38-year-old female with past medical history of hypertension, Almaz's thyroiditis and migraines who presents today for concern of neck pain. Patient states she typically has a history of left-sided cervical radiculopathy but ever since last few days she has been pain on the right side of her cervical spine which radiates down her arm after she did some moving recently. Patient denies any midline spinal canal tenderness, bowel or bladder incontinence, perianal anesthesia, lower extremity weakness, chest pain, shortness of breath, lightheadedness, dizziness or syncope. Patient denies any history of traumatic injury. Patient requesting a medication. Patient states he had MRI 2 months prior and was told that she has a slipped disc in her cervical spine. Past Medical History: Diagnosis Date Disease of thyroid gland Almaz thyroiditis, fibrous variant Hypertension Migraine Past Surgical History: Procedure Laterality Date FEMUR SURGERY Right HYSTERECTOMY (CERVIX REMOVED) ORIF RADIUS & ULNA FRACTURES Left THYROIDECTOMY No family history on file. Social History Socioeconomic History Marital status: Tobacco Use Smoking status: Every Day Packs/day: 1 Types: Cigarettes Smokeless tobacco: Never Vaping Use Vaping Use: Never used Substance and Sexual Activity Alcohol use: Yes Comment: occasionally Drug use: Not Currently Previous Medications Medication Sig albuterol 90 mcg/actuation inhaler Inhale 2 (two) puffs every 4 (four) hours as needed . amLODIPine (NORVASC) 5 MG tablet Take 1 (one) tablet (5 mg total) by mouth daily . baclofen (LIORESAL) 10 MG tablet Take 2 (two) tablets (20 mg total) by mouth 3 (three) times a day for 5 days . diazePAM (VALIUM) 5 MG tablet Take 1 (one) tablet (5 mg total) by mouth 2 (two) times a day as needed for anxiety (Days supply per fill: 3 DAY SUPPLY . (Patient not taking: Reported on 11/23/2021 .) dicyclomine (BENTYL) 20 mg tablet Take 1 (one) tablet (20 mg total) by mouth 4 (four) times a day before meals and nightly for 5 days . ketoprofen (ORUDIS) 75 MG capsule Take 1 (one) capsule (75 mg total) by mouth 4 (four) times a day as needed for pain . levothyroxine (SYNTHROID, LEVOTHROID) 137 MCG tablet Take 137 mcg by mouth once daily . prochlorperazine (COMPAZINE) 10 MG tablet Take 1 (one) tablet (10 mg total) by mouth every 6 (six) hours as needed for nausea . ursodioL (ACTIGALL) 250 mg tablet Take 250 mg by mouth . vitamin E 200 UNIT capsule Take 1 (one) capsule (200 Units total) by mouth daily . Allergies Allergen Reactions Latex Penicillins Toradol [Ketorolac] Vicodin [Hydrocodone-Acetaminop hen] Other (See Comments) Insomnia Review of Systems Constitutional: Negative for chills and fever. Eyes: Negative for pain. Respiratory: Negative for cough, chest tightness and shortness of breath. Cardiovascular: Negative for chest pain and palpitations. Gastrointestinal: Negative for abdominal pain, nausea and vomiting. Genitourinary: Negative for flank pain. Musculoskeletal: Positive for neck pain. Negative for arthralgias and myalgias. Skin: Negative for rash. Neurological: Negative for dizziness, syncope, light-headedness and headaches. Psychiatric/Behavioral: Negative for agitation. All other systems reviewed and are negative. No data found. Physical Exam Vitals and nursing note reviewed. Constitutional: Appearance: Normal appearance. HENT: Head: Normocephalic. Eyes: Pupils: Pupils are equal, round, and reactive to light. Cardiovascular: Rate and Rhythm: Normal rate and regular rhythm. Pulses: Normal pulses. Heart sounds: Normal heart sounds. Musculoskeletal: Cervical back: Normal range of motion. Comments: Left-sided cervical paraspinal tenderness with associated hypertonicity. No midline spinal canal tenderness or gross deformity. Equal sensation motor function of the bilateral upper and lower extremity. Equal pulses bilaterally. Pulmonary: Effort: Pulmonary effort is normal. Breath sounds: Normal breath sounds. Skin: General: Skin is warm. Capillary Refill: Capillary refill takes less than 2 seconds. Neurological: General: No focal deficit present. Mental Status: She is alert. Psychiatric: Mood and Affect: Mood normal. . Laboratory & Radiographic Imaging (if done): No results found for this visit on 10/20/23. No orders to display Procedures Medical Decision Making Patient was seen and evaluated for concern of neck pain. Patient has suspected cervical radiculopathy. Patient not any red flags of neck pain or midline tenderness and therefore advanced imaging was not indicated at this time. Patient w (more content not included)... Normal [facility] Absolute lymphocyte countOrd ered By: Sorin Jacobs on 09-29-2023 Lymphocytes Auto (Unsp spec) [#/Vol] 1.56 10*3/uL 0.83-4.51 [facility] Automated lymphocyte count a s percentage of total leukocytesOrdered By: Sorin Jacobs on 09-29-2023 Lymphocytes/100 WBC Auto (Unsp spec) 26.8 % 19-41 [facility] Basophil percentageOrdered B y: Sorin Jacobs on 09-29-2023 Basophil percentage 14.4 g/dL 12.0-15.0 [facility] Basophils (Bld) [#/Vol] 5.8 10*3/uL 4.4-11.0 [facility] Basophils (Bld) [#/Vol] 3.5 10*3/uL 2.0-7.7 [facility] Basophils/100 WBC (Bld) 59.6 % 47-70 [facility] Basophils/100 WBC (Bld) 9.4 % 0-10 [facility] Basophils/100 WBC (Bld) 3.4 % 0-5 [facility] Basophils/100 WBC (Bld) 0.5 % 0-1 [facility] Determination of erythrocyte mean corpuscular volume (MCV)Ordered By: Sorin Jacobs on 09-29-2023 MCV (RBC) [Entitic vol] 86.0 fL 81-99 [facility] Erythrocyte distribution wid th ratioOrdered By: Sorin Jacobs on 09-29-2023 Erythrocyte distribution width (RBC) [Ratio] 13.2 % 11.6-14.6 [facility] Erythrocyte distribution wid th standard deviationOrdered By: Sorin Jacobs on 09-29-2023 Erythrocyte distribution width (RBC) [Entitic vol] 41.2 fL 35.1-43.9 [facility] Hematocrit Auto (Bld) [Volum e fraction]Ordered By: Sorin Jacobs on 09-29-2023 Hematocrit (Bld) [Volume fraction] 44.4 % 37-47 [facility] Immature granulocytes/100 WB C Auto (Bld)Ordered By: Sorin Jacobs on 09-29-2023 Immature granulocytes/100 WBC (Bld) 0.300 % 0.0-0.9 [facility] No Panel InformationOrdered By: Sorin Jacobs on 09-29-2023 27.9 pg 27.0-32.0 [facility] 32.4 g/dL 32-36 [facility] 173 K/mm3 150-450 [facility] 10.6 fl 6.2-12.0 [facility] 0 % 0-5 [facility] RBC Auto (Bld) [#/Vol]Ordere d By: Sorin Jacobs on 09-29-2023 RBC (Bld) [#/Vol] 5.16 10*6/uL 4.2-5.4 [facility] Throat specimen bacteria gregorio ntification by cultureOrdered By: Oscar Fuller on 09-21-2023 Bacteria identified Cx Nom (Throat) streptococcus isolated. [facility] Rapid group A Streptococcus screen at point of careon 09-14-2023 S. pyogenes Ag IA.rapid Ql (Throat) Negative [facility] Absolute lymphocyte countOrd ered By: Irving Lobato on 09-05-2023 Lymphocytes Auto (Unsp spec) [#/Vol] 1.28 10*3/uL 0.83-4.51 [facility] Automated lymphocyte count a s percentage of total leukocytesOrdered By: Irving Lobato on 09-05-2023 Lymphocytes/100 WBC Auto (Unsp spec) 27.5 % 19-41 [facility] Basophil percentageOrdered B y: Irving Lobato on 09-05-2023 Basophil percentage 13.7 g/dL 12.0-15.0 [facility] Basophil percentage 109 mg/dL 74-106 [facility] Basophil percentage 7.1 g/dL 6.4-8.2 [facility] Basophil percentage 0.30 mg/dL 0.20-1.00 [facility] Basophil percentage 139 mmol/L 136-145 [facility] Basophil percentage 3.7 mmol/L 3.5-5.1 [facility] Basophil percentage 108 mmol/L 98-107 [facility] Basophils (Bld) [#/Vol] 4.7 10*3/uL 4.4-11.0 [facility] Basophils (Bld) [#/Vol] 2.7 10*3/uL 2.0-7.7 [facility] Basophils/100 WBC (Bld) 57.3 % 47-70 [facility] Basophils/100 WBC (Bld) 9.4 % 0-10 [facility] Basophils/100 WBC (Bld) 4.5 % 0-5 [facility] Basophils/100 WBC (Bld) 0.9 % 0-1 [facility] Chlamydia trachomatis rRNA d etection by probe and target amplification methodOrdered By: Diana Gunn on 09-05-2023 C. trachomatis rRNA JONE+probe Ql (Unsp spec) Negative Negative [facility] Determination of erythrocyte mean corpuscular volume (MCV)Ordered By: Irving Lobato on 09-05-2023 MCV (RBC) [Entitic vol] 83.8 fL 81-99 [facility] Erythrocyte distribution wid th ratioOrdered By: Irving Lobato on 09-05-2023 Erythrocyte distribution width (RBC) [Ratio] 12.6 % 11.6-14.6 [facility] Erythrocyte distribution wid th standard deviationOrdered By: Irving Lobato on 09-05-2023 Erythrocyte distribution width (RBC) [Entitic vol] 38.2 fL 35.1-43.9 [facility] Gram stain for investigation of transfusion reactionOrdered By: Diana Gunn on 09-05-2023 Microscopic observation Gram stain Nom (Unsp spec) [facility] HIV 1 and HIV-2 antibody ass ay with HIV-1 p24 antigen detectionOrdered By: Diana Gunn on 09-05-2023 HIV 1+2 Ab+HIV1 p24 Ag IA Ql Non-Reactive Nonreactive [facility] Hematocrit Auto (Bld) [Volum e fraction]Ordered By: Irving Lobato on 09-05-2023 Hematocrit (Bld) [Volume fraction] 41.0 % 37-47 [facility] Immature granulocytes/100 WB C Auto (Bld)Ordered By: Irving Lobato on 09-05-2023 Immature granulocytes/100 WBC (Bld) 0.400 % 0.0-0.9 [facility] No Panel InformationOrdered By: Diana Gunn on 09-05-2023 Negative Negative [facility] Yeast, not Chela albicans [facility] Non-Reactive Nonreactive [facility] No Panel InformationOrdered By: Irving Lobato on 09-05-2023 28.0 pg 27.0-32.0 [facility] 33.4 g/dL 32-36 [facility] 193 K/mm3 150-450 [facility] 10.9 fl 6.2-12.0 [facility] 0 % 0-5 [facility] 13.0 SECONDS 11.7-14.9 [facility] 1.0 [facility] 84 mL/min >60 [facility] 102 mL/min >60 [facility] 11.1 RATIO 10-20 [facility] 3.5 g/dL 2.2-4.2 [facility] 1.0 RATIO 0.9-2.4 [facility] 66 U/L 45-117 [facility] 24 U/L 13-56 [facility] 26.0 mmol/L 21.0-32.0 [facility] < 2.90 mg/L 0.0-3.0 [facility] 288 pg/mL 211-911 [facility] No Panel Informationon 09-04 Negative [facility] RBC Auto (Bld) [#/Vol]Ordere d By: Irving Lobato on 09-05-2023 RBC (Bld) [#/Vol] 4.89 10*6/uL 4.2-5.4 [facility] Serum Treponema species anti body detectionOrdered By: Diana Gunn on 09-05-2023 Treponema sp Ab Ql (S) Non-Reactive [facility] Serum or plasma calcium mg urement (mass/volume)Ordered By: Irving Lobato on 09-05-2023 Calcium [Mass/Vol] 8.5 mg/dL 8.5-10.[address] [facility] Serum or plasma creatinine m easurement (mass/volume)Ordered By: Irving Lobato on 09-05-2023 Creatinine [Mass/Vol] 0.81 mg/dL 0.55-1.[address] [facility] Serum or plasma thyroid stim ulating hormone (TSH) measurement (units/volume)Ordered By: Irving Lobato on 09-05-2023 TSH Qn 0.81 uIU/mL 0.358-3.74 [facility] Serum or plasma urea nitroge n measurement (mass/volume)Ordered By: Irving Lobato on 09-05-2023 Urea nitrogen [Mass/Vol] 9 mg/dL 7-18 [facility] Thin prep Papanicolaou smear with manual screeningOrdered By: Irving Lobato on 09-05-2023 Thin prep Papanicolaou smear with manual screening 3.6 g/dL 3.2-5.0 [facility] Thin prep Papanicolaou smear with manual screening 14 U/L 15-37 [facility] Thin prep Papanicolaou smear with manual screening 5 5-15 [facility] Thin prep Papanicolaou smear with manual screening 1.24 ng/dL 0.76-1.46 [facility] Whole blood hemoglobin A1c/t otal hemoglobin ratio (mass fraction)Ordered By: Irving Lobato on 09-05-2023 HbA1c (Bld) [Mass fraction] 5.6 % 3.8-5.6 [facility] Bacteria identified Cx Nom ( Throat)Ordered By: Oscar Fuller on 08-31-2023 Throat specimen bacteria identification by culture Streptococcus group A [facility] CNOVSPon 08-16-2023 CNOVSP Visit (SP) Office ([facility]) LANA RIVERA ([id number]) 1985 F Date Time Provider Department 08/16/23 2:30 PM ARGELIA VASQUEZ During your visit today, we recorded the following information about you: Jayla Medina, 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 Rivera is a 38 year old female who has a past medical history of ADHD, anxiety/depression, diabetes, hypertension, fibromyalgia, Almaz's thyroiditis now with hypothyroidism, melanoma, migraine without aura, obesity, PCOS, and smoking. Per Dr. Eubanks's note on 11/16/2022: Patient reports that she is s/p LEN [...] years as her is s/p vasectomy. Her Emission Technician is Dr. Garcia and Dr. Moore IMAGING: US PELVIS: 11/08/2022 R ovary reportedly normal and measuring 5.4 x 5.3 x 4.2 cm with complex cyst measuring 4.2 x 3.9 x 3.2 cm No free fluid in pelvis US PELVIS: 10/07/2022 R ovary has normal venous and arterial flow. Ovary measures 5 x 4 x 3.3 cm with a cystic structure measuring 2.4 x 2.6 2.6 cm. No free fluid. US PELVIS: 07/13/2022 R ovary measures 4.6 x 3.4 x 3.2 cm. Multiple follicles noted with a simple cyst measured as 1.7 x 1.9 x 1.9 cm. Normal blood flow. No free fluid. US PELVIS: 06/22/2022 R ovary measures 5.5 x 5.2 x 4.6 cm. There is a complex solid and cystic mass in the right ovary that measures 4.2 x 4.5 x 3.2 cm. No free fluid. HISTORIES: PAST GYNECOLOGIC HISTORY: OB History T3 L2 SAB0 IAB1 Ectopic0 Multiple0 Live Births2 LMP: Patient's last menstrual period was 04/22/2020. Hormonal contraceptives: Yes, 12-13 years ago How long: roughly 5-10 years. HRT use: No. History of abnormal pap: Yes, 2016 - ASCUS Last pap: Most recently 2016 in records, Per pt -unsure but knows she is up to date Last HPV: negative Last mammogram: 2020, normal Last colonoscopy: N/A Allergies As of Date: 08/16/2023 Noted Allergy Reaction LATEX 04/10/2012 2 - Rash PENICILLINS 02/17/2010 4 - Hives HYDROCODONE 11/09/2022 16 - Unknown BENTYL (DICYCLOMINE) 05/27/2015 5 - Intolerance LEXAPRO (ESCITALOPRAM OXALATE) 02/25/2016 14 - Other: See Comments Comments: made her feel light headed and issues with focus. NAPROSYN (NAPROXEN) 06/03/2019 16 - Unknown Comments: Allergy since a child PHENERGAN (PROMETHAZINE HCL) 12/27/2017 16 - Unknown TORADOL (KETOROLAC) 05/27/2015 16 - Unknown ZOFRAN (ONDANSETRON HCL (PF)) 08/16/2012 14 - Other: See Comments Comments: Migraines ZOLOFT (SERTRALINE HCL) 02/25/2016 14 - Other: See Comments Comments: Dizzy and headache Date Reviewed: 11/16/2022 Reviewed by: Chanel Soto MA - Fully Assessed Primary Visit Diagnosis:NO SHOW Prescriptions as of 08/29/2023 - hydrOXYzine pamoate (VISTARIL) 25 mg capsule hydroxyzine pamoate 25 mg capsule Take 25 mg BY MOUTH THREE TIMES DAILY As Needed for anxiety - naltrexone-bupropion (CONTRAVE) 8-90 mg ER tablet Take one tab a day for a week, then one twice a day for a week, then two in Am and one in PM for a week then two twice a day. - levothyroxine (SYNTHROID) 137 mcg tablet Take 1 tablet by mouth daily before breakfa (more content not included)... Normal [facility] Absolute lymphocyte countOrd ered By: Ashutosh Barajas on 07-25-2023 Lymphocytes Auto (Unsp spec) [#/Vol] 2.07 10*3/uL 0.83-4.51 [facility] Automated lymphocyte count a s percentage of total leukocytesOrdered By: Ashutosh Barajas on 07-25-2023 Lymphocytes/100 WBC Auto (Unsp spec) 31.5 % 19-41 [facility] Basophil percentageOrdered B y: Ashutosh Barajas on 07-25-2023 Basophil percentage 13.6 g/dL 12.0-15.0 [facility] Basophil percentage 103 mg/dL 74-106 [facility] Basophil percentage 139 mmol/L 136-145 [facility] Basophil percentage 3.6 mmol/L 3.5-5.1 [facility] Basophil percentage 110 mmol/L 98-107 [facility] Basophils (Bld) [#/Vol] 6.6 10*3/uL 4.4-11.0 [facility] Basophils (Bld) [#/Vol] 3.7 10*3/uL 2.0-7.7 [facility] Basophils/100 WBC (Bld) 56.2 % 47-70 [facility] Basophils/100 WBC (Bld) 7.5 % 0-10 [facility] Basophils/100 WBC (Bld) 4.1 % 0-5 [facility] Basophils/100 WBC (Bld) 0.5 % 0-1 [facility] Basophil percentageOrdered B y: ED PROVIDER on 07-25-2023 Basophil percentage 0 SEEN /hpf 0-5 [facility] Bilirubin Test strip Ql (U)O rdered By: ED PROVIDER on 07-25-2023 Bilirubin Ql (U) Negative Negative [facility] Determination of erythrocyte mean corpuscular volume (MCV)Ordered By: Ashutosh Barajas on 07-25-2023 MCV (RBC) [Entitic vol] 84.2 fL 81-99 [facility] Erythrocyte distribution wid th ratioOrdered By: Ashutosh Barajas on 07-25-2023 Erythrocyte distribution width (RBC) [Ratio] 12.7 % 11.6-14.6 [facility] Erythrocyte distribution wid th standard deviationOrdered By: Ashutosh Barajas on 07-25-2023 Erythrocyte distribution width (RBC) [Entitic vol] 38.5 fL 35.1-43.9 [facility] Hematocrit Auto (Bld) [Volum e fraction]Ordered By: Ashutosh Barajas on 07-25-2023 Hematocrit (Bld) [Volume fraction] 40.4 % 37-47 [facility] Immature granulocytes/100 WB C Auto (Bld)Ordered By: Ashutosh Barajas on 07-25-2023 Immature granulocytes/100 WBC (Bld) 0.200 % 0.0-0.9 [facility] Ketones Test strip Ql (U)Ord ered By: ED PROVIDER on 07-25-2023 Ketones Ql (U) Negative Negative [facility] Mucus LM Ql (Urine sed)Order ed By: ED PROVIDER on 07-25-2023 Mucus Ql (Urine sed) 0 SEEN /hpf [facility] Nitrite Test strip Ql (U)Ord ered By: ED PROVIDER on 07-25-2023 Nitrite Ql (U) Negative Negative [facility] No Panel InformationOrdered By: Ashutosh Barajas on 07-25-2023 28.3 pg 27.0-32.0 [facility] 33.7 g/dL 32-36 [facility] 179 K/mm3 150-450 [facility] 10.9 fl 6.2-12.0 [facility] 0 % 0-5 [facility] 101 mL/min >60 [facility] 122 mL/min >60 [facility] 137.22 ml/min [facility] 15.8 RATIO 10-20 [facility] 26.0 mmol/L 21.0-32.0 [facility] No Panel InformationOrdered By: ED PROVIDER on 07-25-2023 0 SEEN /hpf 0-5 [facility] Protein Test strip Ql (U)Ord ered By: ED PROVIDER on 07-25-2023 Protein Ql (U) Negative Negative [facility] RBC Auto (Bld) [#/Vol]Ordere d By: Ashutosh Barajas on 07-25-2023 RBC (Bld) [#/Vol] 4.80 10*6/uL 4.2-5.4 [facility] Serum or plasma calcium mg urement (mass/volume)Ordered By: Ashutosh Barajas on 07-25-2023 Calcium [Mass/Vol] 8.8 mg/dL 8.5-10.1 [facility] Serum or plasma creatinine m easurement (mass/volume)Ordered By: Ashutosh Barajas on 07-25-2023 Creatinine [Mass/Vol] 0.70 mg/dL 0.55-1.[address] [facility] Serum or plasma urea nitroge n measurement (mass/volume)Ordered By: Ashutosh Barajas on 07-25-2023 Urea nitrogen [Mass/Vol] 11 mg/dL 7-18 [facility] Squamous epithelial cells de tection in urine sediment by light microscopyOrdered By: ED PROVIDER on 07-25-2023 Epithelial cells.squamous LM Ql (Urine sed) 0-5 SEEN /hpf 5-10 [facility] Thin prep Papanicolaou smear with manual screeningOrdered By: Ashutosh Barajas on 07-25-2023 Thin prep Papanicolaou smear with manual screening 3 5-15 [facility] Urine blood detectionOrdered By: ED PROVIDER on 07-25-2023 RBC Ql (U) Negative Negative [facility] Urine clarityOrdered By: ED PROVIDER on 07-25-2023 Clarity (U) Clear Clear [facility] Urine color determinationOrd ered By: ED PROVIDER on 07-25-2023 Color (U) Yellow Yellow [facility] Urine glucose detectionOrder ed By: ED PROVIDER on 07-25-2023 Glucose Ql (U) Normal mg/dl Normal [facility] Urine leukocyte esterase det ection by dipstickOrdered By: ED PROVIDER on 07-25-2023 Leukocyte esterase Test strip Ql (U) Negative Negative [facility] Urine pHOrdered By: ED PROVI TITA on 07-25-2023 pH (U) 6.0 [pH] 5.0 - 8.0 [facility] Urine sediment bacteria coun t by microscopy (number/high power field)Ordered By: ED PROVIDER on 07-25-2023 Bacteria LM.HPF (Urine sed) [#/Area] 0 /[HPF] None Seen [facility] Urine specific gravity measu rementOrdered By: ED PROVIDER on 07-25-2023 Specific gravity (U) [Rel density] 1.015 1.002-1.030 [facility] Urine urobilinogen measureme ntOrdered By: ED PROVIDER on 07-25-2023 Urobilinogen Ql (U) Normal mg/dl Normal [facility] No Panel InformationOrdered By: Ashutosh Barajas on 07-18-2023 < 0.27 FEU/ug/m 0.27-0.49 [facility] 178 U/L 26-192 [facility] Absolute lymphocyte countOrd ered By: Ralph Tracy on 05-03-2023 Lymphocytes Auto (Unsp spec) [#/Vol] 1.14 10*3/uL 0.83-4.51 [facility] Basophil percentageOrdered B y: Ralph Tracy on 05-03-2023 Basophil percentage 159 mg/dL 74-106 [facility] Basophil percentage 7.0 g/dL 6.4-8.2 [facility] Basophil percentage 0.40 mg/dL 0.20-1.00 [facility] Basophil percentage 137 mmol/L 136-145 [facility] Basophil percentage 3.6 mmol/L 3.5-5.1 [facility] Basophil percentage 107 mmol/L 98-107 [facility] Basophil percentage 13.0 umol/L 11-32 [facility] Basophil percentage 168 U/L 84-246 [facility] Basophil percentage Not Reportable [facility] Basophils (Bld) [#/Vol] 4.8 10*3/uL 4.4-11.0 [facility] Basophils (Bld) [#/Vol] 3.1 10*3/uL 2.0-7.7 [facility] Basophils/100 WBC (Bld) 65.8 % 47-70 [facility] Basophils/100 WBC (Bld) 3.8 % 0-5 [facility] Basophils/100 WBC (Bld) 0.6 % 0-1 [facility] Blood erythrocytes count (nu mber/volume)Ordered By: Ralph Tracy on 05-03-2023 RBC (Bld) [#/Vol] 5.11 10*6/uL 4.2-5.4 [facility] Blood hemoglobin measurement (mass/volume)Ordered By: Ralph Tracy on 05-03-2023 Hemoglobin (Bld) [Mass/Vol] 14.1 g/dL 12.0-15.0 [facility] Blood lymphocytes/100 leukoc ytesOrdered By: Ralph Tracy on 05-03-2023 Lymphocytes/100 WBC (Bld) 23.9 % 19-41 [facility] Blood monocytes/100 leukocyt esOrdered By: Ralph Tracy on 05-03-2023 Monocytes/100 WBC (Bld) 5.5 % 0-10 [facility] [facility] Blood platelet mean volumeOr dered By: Ralph Tracy on 05-03-2023 Platelet mean volume (Bld) [Entitic vol] 11.4 fL 6.2-12.0 [facility] Determination of erythrocyte mean corpuscular volume (MCV)Ordered By: Ralph Tracy on 05-03-2023 MCV (RBC) [Entitic vol] 86.3 fL 81-99 [facility] Erythrocyte sedimentation ra teOrdered By: Ralph Tracy on 05-03-2023 ESR (Bld) [Velocity] 2 mm/h 0-30 [facility] Hematocrit Auto (Bld) [Volum e fraction]Ordered By: Ralph Tracy on 05-03-2023 Hematocrit (Bld) [Volume fraction] 44.1 % 37-47 [facility] INR in Blood by Coagulation assayOrdered By: Ralph Tracy on 05-03-2023 INR Coag (Bld) [Relative time] 1.0 {INR} [facility] MCHC Auto (RBC) [Mass/Vol]Or dered By: Ralph Tracy on 05-03-2023 MCHC (RBC) [Mass/Vol] 32.0 g/dL 32-[address] [facility] No Panel InformationOrdered By: Ralph Tracy on 05-03-2023 27.6 pg 27.0-32.0 [facility] 13.1 % 11.6-14.6 [facility] 40.8 fl 35.1-43.9 [facility] 0.400 % 0.0-0.9 [facility] 0 % 0-5 [facility] 13.2 SECONDS 11.7-14.9 [facility] 75 mL/min >60 [facility] 91 mL/min >60 [facility] 10.0 RATIO 10-20 [facility] 3.4 g/dL 2.2-4.2 [facility] 65 U/L 45-117 [facility] 20 U/L 13-56 [facility] 24.0 mmol/L 21.0-32.0 [facility] 22.6 ng/mL [facility] Negative Negative [facility] Not Reportable [facility] <2 U/mL 0-5 [facility] Platelets bldOrdered By: Mir Tracy on 05-03-2023 Platelets (Bld) [#/Vol] 180 10*3/uL 150-450 [facility] Serum DNA double strand anti body assay (units/volume)Ordered By: Ralph Tracy on 05-03-2023 DNA double strand Ab Qn (S) Not Reportable [facility] Serum Alise-1 antibody assay (u nits/volume)Ordered By: Ralph Tracy on 05-03-2023 Alise-1 extractable nuclear Ab Qn (S) Not Reportable [facility] Serum Scl-70 extractable nuc lear antibody assay (units/volume)Ordered By: Ralph Tracy on 05-03-2023 SCL-70 extractable nuclear Ab Qn (S) Not Reportable [facility] Serum Freedman extractable nucl ear antibody detectionOrdered By: Ralph Tracy on 05-03-2023 Freedman extractable nuclear Ab Ql (S) Not Reportable [facility] Serum or plasma C reactive p rotein measurement (mass/volume)Ordered By: Ralph Tracy on 05-03-2023 CRP [Mass/Vol] mg/L 0.0-3.0 [facility] Serum or plasma albumin mg urement (mass/volume)Ordered By: Ralph Tracy on 05-03-2023 Albumin [Mass/Vol] 3.6 g/dL 3.2-5.[address] [facility] Serum or plasma albumin/glob ulin mass ratioOrdered By: Ralph Tracy on 05-03-2023 Albumin/Globulin [Mass ratio] 1.1 {ratio} 0.9-2.4 [facility] Serum or plasma [id number] protein tumor marker measurement (units/volume)Ordered By: Ralph Tracy on 05-03-2023 AFP.tumor marker Qn 2.2 ng/mL 0.0-6.4 [facility] Serum or plasma calcium mg urement (mass/volume)Ordered By: Ralph Tracy on 05-03-2023 Calcium [Mass/Vol] 8.9 mg/dL 8.5-10.[address] [facility] Serum or plasma creatinine m easurement (mass/volume)Ordered By: Ralph Tracy on 05-03-2023 Creatinine [Mass/Vol] 0.90 mg/dL 0.55-1.[address] [facility] Serum or plasma urea nitroge n measurement (mass/volume)Ordered By: Ralph Tracy on 05-03-2023 Urea nitrogen [Mass/Vol] 9 mg/dL 7-18 [facility] Thin prep Papanicolaou smear with manual screeningOrdered By: Ralph Tracy on 05-03-2023 Thin prep Papanicolaou smear with manual screening 8 U/L 15-37 [facility] Thin prep Papanicolaou smear with manual screening 6 5-15 [facility] No Panel Informationon 04-19 5.7 % 4.2-6.3 [facility] No Panel InformationOrdered By: Cassidy Moore on 04-06-2023 1.15 ng/dL 0.76-1.46 [facility] 4.7 mIU/mL [facility] 95.1 ug/dL 57.3-279.2 [facility] Serum or plasma 17-hydroxypr ogesterone measurement (mass/volume)Ordered By: Cassidy Moore on 04-06-2023 17-Hydroxyprogesterone [Mass/Vol] 17 ng/dL . [facility] Serum or plasma estradiol (E 2) measurement (mass/volume)Ordered By: Cassidy Moore on 04-06-2023 E2 [Mass/Vol] 29.2 pg/mL [facility] Serum or plasma testosterone free measurement (mass/volume)Ordered By: Cassidy Moore on 04-06-2023 Testosterone Free [Mass/Vol] 0.4 pg/mL 0.0-4.2 [facility] Basophil percentageOrdered B y: Ralph Tracy on 03-28-2023 Basophil percentage 109 mg/dL 74-106 [facility] Basophil percentage 6.9 g/dL 6.4-8.2 [facility] Basophil percentage 0.30 mg/dL 0.20-1.00 [facility] Basophil percentage 137 mmol/L 136-145 [facility] Basophil percentage 3.9 mmol/L 3.5-5.1 [facility] Basophil percentage 105 mmol/L 98-107 [facility] Direct bilirubinOrdered By: Ralph Tracy on 03-28-2023 Bilirubin.direct [Mass/Vol] 0.11 mg/dL 0.00-0.30 [facility] No Panel InformationOrdered By: Ralph Trayc on 03-28-2023 81 mL/min >60 [facility] 98 mL/min >60 [facility] 10.7 RATIO 10-20 [facility] 3.3 g/dL 2.2-4.2 [facility] 65 U/L 45-117 [facility] 23 U/L 13-56 [facility] 31.0 mmol/L 21.0-32.0 [facility] Serum or plasma albumin mg urement (mass/volume)Ordered By: Ralph Tracy on 03-28-2023 Albumin [Mass/Vol] 3.6 g/dL 3.2-5.[address] [facility] Serum or plasma albumin/glob ulin mass ratioOrdered By: Ralph Tracy on 03-28-2023 Albumin/Globulin [Mass ratio] 1.1 {ratio} 0.9-2.4 [facility] Serum or plasma calcium mg urement (mass/volume)Ordered By: Ralph Tracy on 03-28-2023 Calcium [Mass/Vol] 9.0 mg/dL 8.5-10.[address] [facility] Serum or plasma creatinine m easurement (mass/volume)Ordered By: Ralph Tracy on 03-28-2023 Creatinine [Mass/Vol] 0.84 mg/dL 0.55-1.[address] [facility] Serum or plasma urea nitroge n measurement (mass/volume)Ordered By: Ralph Tracy on 03-28-2023 Urea nitrogen [Mass/Vol] 9 mg/dL 7-18 [facility] Thin prep Papanicolaou smear with manual screeningOrdered By: Ralph Tracy on 03-28-2023 Thin prep Papanicolaou smear with manual screening 12 U/L 15-37 [facility] Thin prep Papanicolaou smear with manual screening 1 5-15 [facility] No Panel InformationOrdered By: Aleena London on 03-03-2023 1.24 uIU/mL 0.358-3.74 [facility] Absolute lymphocyte countOrd ered By: Loly Sierra on 02-08-2023 Lymphocytes Auto (Unsp spec) [#/Vol] 1.87 10*3/uL 0.83-4.51 [facility] Basophil percentageOrdered B y: Loly Sierra on 02-08-2023 Basophil percentage 0 SEEN /hpf 0-5 [facility] Basophil percentage 110 mg/dL 74-106 [facility] Basophil percentage 6.7 g/dL 6.4-8.2 [facility] Basophil percentage 0.10 mg/dL 0.20-1.00 [facility] Basophil percentage 138 mmol/L 136-145 [facility] Basophil percentage 3.8 mmol/L 3.5-5.1 [facility] Basophil percentage 107 mmol/L 98-107 [facility] Basophils (Bld) [#/Vol] 5.6 10*3/uL 4.4-11.0 [facility] Basophils (Bld) [#/Vol] 2.9 10*3/uL 2.0-7.7 [facility] Basophils/100 WBC (Bld) 51.2 % 47-70 [facility] Basophils/100 WBC (Bld) 4.5 % 0-5 [facility] Basophils/100 WBC (Bld) 0.9 % 0-1 [facility] Bilirubin Test strip Ql (U)O rdered By: Loly Sierra on 02-08-2023 Bilirubin Ql (U) Negative Negative [facility] Blood erythrocytes count (nu mber/volume)Ordered By: Loly Sierra on 02-08-2023 RBC (Bld) [#/Vol] 4.74 10*6/uL 4.2-5.4 [facility] Blood hemoglobin measurement (mass/volume)Ordered By: Loly Sierra on 02-08-2023 Hemoglobin (Bld) [Mass/Vol] 13.2 g/dL 12.0-15.0 [facility] Blood lymphocytes/100 leukoc ytesOrdered By: Loly Sierra on 02-08-2023 Lymphocytes/100 WBC (Bld) 33.5 % 19-41 [facility] Blood monocytes/100 leukocyt esOrdered By: Loly Sierra on 02-08-2023 Monocytes/100 WBC (Bld) 9.5 % 0-10 [facility] Blood platelet mean volumeOr dered By: Loly Sierra on 02-08-2023 Platelet mean volume (Bld) [Entitic vol] 10.8 fL 6.2-12.0 [facility] Determination of erythrocyte mean corpuscular volume (MCV)Ordered By: Loly Sierra on 02-08-2023 MCV (RBC) [Entitic vol] 86.5 fL 81-99 [facility] Hematocrit Auto (Bld) [Volum e fraction]Ordered By: Loly Sierra on 02-08-2023 Hematocrit (Bld) [Volume fraction] 41.0 % 37-47 [facility] Ketones Test strip Ql (U)Ord ered By: Loly Sierra on 02-08-2023 Ketones Ql (U) Negative Negative [facility] MCHC Auto (RBC) [Mass/Vol]Or dered By: Loly Sierra on 02-08-2023 MCHC (RBC) [Mass/Vol] 32.2 g/dL 32-[address] [facility] Mucus LM Ql (Urine sed)Order ed By: Loly Sierra on 02-08-2023 Mucus Ql (Urine sed) 0 SEEN /hpf [facility] Nitrite Test strip Ql (U)Ord ered By: Loly Sierra on 02-08-2023 Nitrite Ql (U) Negative Negative [facility] No Panel InformationOrdered By: Loly Sierra on 02-08-2023 27.8 pg 27.0-32.0 [facility] 13.0 % 11.6-14.6 [facility] 40.7 fl 35.1-43.9 [facility] 0.400 % 0.0-0.9 [facility] 0 % 0-5 [facility] 86 mL/min >60 [facility] 104 mL/min >60 [facility] 90.75 ml/min [facility] 12.4 RATIO 10-20 [facility] 3.2 g/dL 2.2-4.2 [facility] 61 U/L 45-117 [facility] 24 U/L 13-56 [facility] 27.0 mmol/L 21.0-32.0 [facility] Platelets bldOrdered By: Reyna Sierra on 02-08-2023 Platelets (Bld) [#/Vol] 177 10*3/uL 150-450 [facility] Protein Test strip Ql (U)Ord ered By: Loly Sierra on 02-08-2023 Protein Ql (U) Negative Negative [facility] Serum or plasma albumin mg urement (mass/volume)Ordered By: Loly Sierra on 02-08-2023 Albumin [Mass/Vol] 3.5 g/dL 3.2-5.[address] [facility] Serum or plasma albumin/glob ulin mass ratioOrdered By: Loly Sierra on 02-08-2023 Albumin/Globulin [Mass ratio] 1.1 {ratio} 0.9-2.4 [facility] Serum or plasma calcium mg urement (mass/volume)Ordered By: Loly Sierra on 02-08-2023 Calcium [Mass/Vol] 8.8 mg/dL 8.5-10.[address] [facility] Serum or plasma creatinine m easurement (mass/volume)Ordered By: Loly Sierra on 02-08-2023 Creatinine [Mass/Vol] 0.81 mg/dL 0.55-1.[address] [facility] Serum or plasma urea nitroge n measurement (mass/volume)Ordered By: Loly Sierra on 02-08-2023 Urea nitrogen [Mass/Vol] 10 mg/dL 7-18 [facility] Squamous epithelial cells de tection in urine sediment by light microscopyOrdered By: Loly Sierra on 02-08-2023 Epithelial cells.squamous LM Ql (Urine sed) 0-5 SEEN /hpf 5-10 [facility] Thin prep Papanicolaou smear with manual screeningOrdered By: Loly Sierra on 02-08-2023 Thin prep Papanicolaou smear with manual screening 12 U/L 15-37 [facility] Thin prep Papanicolaou smear with manual screening 4 5-15 [facility] Urine blood detectionOrdered By: Loly Sierra on 02-08-2023 RBC Ql (U) Negative Negative [facility] RBC Ql (U) 0 SEEN /hpf 0-5 [facility] Urine clarityOrdered By: Reyna Sierra on 02-08-2023 Clarity (U) Clear Clear [facility] Urine color determinationOrd ered By: Loly Sierra on 02-08-2023 Color (U) Yellow Yellow [facility] Urine glucose detectionOrder ed By: Loly Sierra on 02-08-2023 Glucose Ql (U) Normal mg/dl Normal [facility] Urine leukocyte esterase det ection by dipstickOrdered By: Loly Sierra on 02-08-2023 Leukocyte esterase Test strip Ql (U) Negative Negative [facility] Urine pHOrdered By: Loly ferris on 02-08-2023 pH (U) 6.0 [pH] 5.0 - 8.0 [facility] Urine sediment bacteria coun t by microscopy (number/high power field)Ordered By: Loly Sierra on 02-08-2023 Bacteria LM.HPF (Urine sed) [#/Area] 0 /[HPF] None Seen [facility] Urine specific gravity measu rementOrdered By: Loly Sierra on 02-08-2023 Specific gravity (U) [Rel density] 1.020 1.002-1.030 [facility] Urobilinogen Auto test strip Ql (U)Ordered By: Loly Sierra on 02-08-2023 Urobilinogen Ql (U) Normal mg/dl Normal [facility] CNPNon 02-02-2023 CNPN Telephone (FAMPWS) LANA RIVERA ([id number]) 1985 F Date Time Provider Department 02/02/23 NIMA KAUR During your visit today, we recorded the following information about you: Radha Stark 02/02/2023 2:03 PM Signed Lana Giselle Liuon is calling Nima Kaur MD today with concern regarding appointment on 02/06 with [facility]. Patient asking who scheduled appointment because she did not. Please return call to patient. Patient has been identified by name and birthdate. Duration of symptoms: N/A Person calling: self Call patient at: on cell [phone] (home) [phone] (cell) Was an appointment scheduled: No Closing statement: Results or non-symptom based questions: Thank you for calling [facility], your call will be returned within the next business day. Riya De MA 02/02/2023 3:34 PM Signed Spoke with patient and she indicated that she another PCP and now and was not sure why they sent this message to us. She is just trying figure out who scheduled the appointment. I did remove PCP. Riya Aguilar MA Allergies As of Date: 02/02/2023 Noted Allergy Reaction LATEX 04/10/2012 2 - Rash PENICILLINS 02/17/2010 4 - Hives HYDROCODONE 11/09/2022 16 - Unknown BENTYL (DICYCLOMINE) 05/27/2015 5 - Intolerance LEXAPRO (ESCITALOPRAM OXALATE) 02/25/2016 14 - Other: See Comments Comments: made her feel light headed and issues with focus. NAPROSYN (NAPROXEN) 06/03/2019 16 - Unknown Comments: Allergy since a child PHENERGAN (PROMETHAZINE HCL) 12/27/2017 16 - Unknown TORADOL (KETOROLAC) 05/27/2015 16 - Unknown ZOFRAN (ONDANSETRON HCL (PF)) 08/16/2012 14 - Other: See Comments Comments: Migraines ZOLOFT (SERTRALINE HCL) 02/25/2016 14 - Other: See Comments Comments: Dizzy and headache Date Reviewed: 11/16/2022 Reviewed by: Chanel Soto MA - Fully Assessed Reason for Visit: Patient Question [2677] Prescriptions as of 02/02/2023 - hydrOXYzine pamoate (VISTARIL) 25 mg capsule hydroxyzine pamoate 25 mg capsule Take 25 mg BY MOUTH THREE TIMES DAILY As Needed for anxiety - naltrexone-bupropion (CONTRAVE) 8-90 mg ER tablet Take one tab a day for a week, then one twice a day for a week, then two in Am and one in PM for a week then two twice a day. - levothyroxine (SYNTHROID) 137 mcg tablet Take 1 tablet by mouth daily before breakfast. Takes two tabs first and third week of month per endo - ketoprofen (ORUDIS) 75 mg capsule TAKE ONE CAPSULE AT ONSET OF HEADACHE MAX of 3 tabs in 24 hrs at 8 hrs apart. Max OF 20 CAPS PER MONTH - amphetamine-dextroamphe tamine XR (ADDERALL XR) 15 mg 24 hr capsule Take 1 capsule by mouth once daily for 30 days. - DULoxetine 40 mg cpDR Take 1 capsule by mouth once daily. - prochlorperazine (COMPAZINE) 10 mg tablet TAKE ONE TABLET BY MOUTH WITH KETOPROFEN Problem List As Of Date 02/02/2023 Noted Resolved PCOS (polycystic ovarian syndrome) [E28.2] 03/02/2011 Sebaceous cyst [L72.3] 02/15/2012 07/14/2015 Quit smoking [Z87.891] 04/10/2012 07/14/2015 Varicose veins [I83.90] 04/10/2012 Placental abruption, antepartum [O45.90] 06/20/2012 12/12/2012 Backache symptom [M54.9] 02/26/2013 07/14/2015 Fatty liver [K76.0] 05/06/2014 Hypothyroidism (acquired) [E03.9] 06/29/2015 Depression [F32.A] 05/11/2016 Neck pain [M54.2] 05/19/2016 Chronic left shoulder pain [M25.512, G89.29] 05/19/2016 Obesity (BMI 35.0-39.9 without comorbidity) [E6*12/09/2016 Migraine without aura and without status migrai*02/27/2017 Post herpetic neuralgia [B02.29] 02/12/2018 Smoker [F17.200] 04/19/2018 Pleural effusion [J90] 2018 06/09/2020 Encounter for screening for diabetes mellitus [*10/12/2018 Muscle tightness [M62.89] 11/05/2018 NICOLÁS (generalized anxiety disorder) [F41.1] 12/25/2018 Vitamin B12 deficiency [E53.8] 12/27/2018 ADHD (attention deficit hyperactivity disorder)*03/28/2019 Medication management [Z79.899] 08/11/2020 Elevated hemoglobin A1c [R73.09] 08/12/2020 Lumbar herniated disc [M51.26] 09/09/2020 Lung nodules [R91.8] 11/10/2020 NO SHOW 12/02/2020 Encounter Status:Closed by RIYA AGUILAR on 02/02/23 Normal [facility] Absolute lymphocyte countOrd ered By: Stephany Robbins on 12-25-2022 Lymphocytes Auto (Unsp spec) [#/Vol] 1.23 10*3/uL 0.83-4.51 [facility] Basophil percentageOrdered B y: Stephany Robbins on 12-25-2022 Basophil percentage 124 mg/dL 74-106 [facility] Basophil percentage 138 mmol/L 136-145 [facility] Basophil percentage 3.8 mmol/L 3.5-5.1 [facility] Basophil percentage 106 mmol/L 98-107 [facility] Basophils (Bld) [#/Vol] 4.6 10*3/uL 4.4-11.0 [facility] Basophils (Bld) [#/Vol] 2.7 10*3/uL 2.0-7.7 [facility] Basophils/100 WBC (Bld) 0.9 % 0-1 [facility] Basophils/100 WBC (Bld) 58.5 % 47-70 [facility] Basophils/100 WBC (Bld) 5.7 % 0-5 [facility] Chloride [Moles/Vol] 106 mmol/L 98-107 [facility] Eosinophils/100 WBC (Bld) 5.7 % 0-5 [facility] Glucose [Mass/Vol] 124 mg/dL 74-[address] [facility] Comment on above: Fasting Glucose resu lt from 100 to 125 mg/dL suggests IMPAIRED HOMEOSTASIS per A.D.A. criteria. Neutrophils (Bld) [#/Vol] 2.7 10*3/uL 2.0-7.7 [facility] Neutrophils/100 WBC (Bld) 58.5 % 47-70 [facility] Potassium [Moles/Vol] 3.8 mmol/L 3.5-5.[address] [facility] Sodium [Moles/Vol] 138 mmol/L 136-[address] [facility] WBC (Bld) [#/Vol] 4.6 10*3/uL 4.4-11.[address] [facility] Blood erythrocytes count (nu mber/volume)Ordered By: Stephany Robbins on 12-25-2022 RBC (Bld) [#/Vol] 4.87 10*6/uL 4.2-5.4 [facility] Blood hemoglobin measurement (mass/volume)Ordered By: Stephany Robbins on 12-25-2022 Hemoglobin (Bld) [Mass/Vol] 13.4 g/dL 12.0-15.0 [facility] Blood lymphocytes/100 leukoc ytesOrdered By: Stephany Robbins on 12-25-2022 Lymphocytes/100 WBC (Bld) 26.7 % 19-41 [facility] Blood monocytes/100 leukocyt esOrdered By: Stephany Robbins on 12-25-2022 Monocytes/100 WBC (Bld) 7.8 % 0-10 [facility] Blood platelet mean volumeOr dered By: Stephany Robbins on 12-25-2022 Platelet mean volume (Bld) [Entitic vol] 10.8 fL 6.2-12.0 [facility] Determination of erythrocyte mean corpuscular volume (MCV)Ordered By: Stephany Robbins on 12-25-2022 MCV (RBC) [Entitic vol] 86.4 fL 81-99 [facility] Hematocrit Auto (Bld) [Volum e fraction]Ordered By: Stephany Robbins on 12-25-2022 Hematocrit (Bld) [Volume fraction] 42.1 % 37-47 [facility] Laboratory - Chemistry and C hemistry - challengeOrdered By: Stephany Robbins on 12-25-2022 CO2 [Moles/Vol] 26.0 mmol/L 21.0-32.0 [facility] Urea nitrogen/Creatinine [Mass ratio] 11.3 mg/mg 10-20 [facility] Laboratory - Hematology and Cell countsOrdered By: Stephany Robbins on 12-25-2022 Erythrocyte distribution width (RBC) [Entitic vol] 40.4 fL 35.1-43.9 [facility] Erythrocyte distribution width (RBC) [Ratio] 13.0 % 11.6-14.6 [facility] Immature granulocytes/100 WBC (Bld) 0.400 % 0.0-0.9 [facility] Comment on above: IG% - Immature Granu locytes (promyelocytes, myelocytes and metamyelocytes) > 1% indicates that a LEFT SHIFT is Present. MCH (RBC) [Entitic mass] 27.5 pg 27.0-32.0 [facility] Nucleated RBC/100 WBC (Bld) [Ratio] 0 % 0-5 [facility] MCHC Auto (RBC) [Mass/Vol]Or dered By: Stephany Robbins on 12-25-2022 MCHC (RBC) [Mass/Vol] 31.8 g/dL 32-[address] [facility] No Panel InformationOrdered By: Stephany Robbins on 12-25-2022 Estimated Creatinine Clearance Calc 103.53 ml/min [facility] Estimated GFR (MDRD) Amer 120 mL/min >60 [facility] Comment on above: GFR Calc Estimated GFR (MDRD) Non-Af Amer 100 mL/min >60 [facility] Comment on above: Non- GFR Calc Troponin I High Sensitivity 3 pg/mL 3.0-54.0 [facility] Comment on above: Please Note: New Chantal t Units and Gender Specific Reference Ranges. For more information see Policy Stat Procedure [place] High Sensitivity Troponin (TNIH) and attachments. 27.5 pg 27.0-32.0 [facility] 13.0 % 11.6-14.6 [facility] 40.4 fl 35.1-43.9 [facility] 0.400 % 0.0-0.9 [facility] 0 % 0-5 [facility] 100 mL/min >60 [facility] 120 mL/min >60 [facility] 103.53 ml/min [facility] 11.3 RATIO 10-20 [facility] 3 pg/mL 3.0-54.0 [facility] 26.0 mmol/L 21.0-32.0 [facility] Platelets bldOrdered By: Tegan Robbins on 12-25-2022 Platelets (Bld) [#/Vol] 158 10*3/uL 150-450 [facility] Serum or plasma calcium mg urement (mass/volume)Ordered By: Stephany Robbins on 12-25-2022 Calcium [Mass/Vol] 8.6 mg/dL 8.5-10.[address] [facility] Serum or plasma creatinine m easurement (mass/volume)Ordered By: Stephany Robbins on 12-25-2022 Creatinine [Mass/Vol] 0.71 mg/dL 0.55-1.[address] [facility] Comment on above: The validity of the calculated GFR & GFRAA in patients over 70 years has not been determined. Clinical correlation is essential. Serum or plasma urea nitroge n measurement (mass/volume)Ordered By: Stephany Robbins on 12-25-2022 Urea nitrogen [Mass/Vol] 8 mg/dL 7-18 [facility] Thin prep Papanicolaou smear with manual screeningOrdered By: Stephany Robbins on 12-25-2022 Thin prep Papanicolaou smear with manual screening 6 5-15 [facility] Chlamydia trachomatis rRNA d etection by probe and target amplification methodOrdered By: Hanh Balderas on 12-15-2022 C. trachomatis rRNA JONE+probe Ql (Unsp spec) Negative Negative [facility] Gram stain for investigation of transfusion reactionOrdered By: Hanh Balderas on 12-15-2022 Microscopic observation Gram stain Nom (Unsp spec) [facility] Microscopic observation Gram stain Nom (Unsp spec) [facility] Laboratory - Microbiology an d Antimicrobial susceptibilityOrdered By: Hanh Balderas on 12-15-2022 N. gonorrhoeae DNA JONE+probe Ql (Unsp spec) Negative Negative [facility] Comment on above: Performed at: =[facility] [address] [id number] Director: Love Vance MD, Phone: [phone] No Panel InformationOrdered By: Hanh Balderas on 12-15-2022 Negative Negative [facility] No Panel Informationon 12-15 POC Trichomonas (Rapid) Negative [facility] Negative [facility] Thin prep Papanicolaou smear with manual screeningOrdered By: Hanh Balderas on 12-15-2022 Thin prep Papanicolaou smear with manual screening [facility] Thin prep Papanicolaou smear with manual screening [facility] Absolute lymphocyte countOrd ered By: Jesi Padilla on 11-19-2022 Lymphocytes Auto (Unsp spec) [#/Vol] 1.83 10*3/uL 0.83-4.51 [facility] Basophil percentageOrdered B y: Jesi Padilla on 11-19-2022 Basophil percentage 95 mg/dL 74-106 [facility] Basophil percentage 7.4 g/dL 6.4-8.2 [facility] Basophil percentage 0.40 mg/dL 0.20-1.00 [facility] Basophil percentage 138 mmol/L 136-145 [facility] Basophil percentage 3.5 mmol/L 3.5-5.1 [facility] Basophil percentage 105 mmol/L 98-107 [facility] Basophils (Bld) [#/Vol] 6.0 10*3/uL 4.4-11.0 [facility] Basophils (Bld) [#/Vol] 3.3 10*3/uL 2.0-7.7 [facility] Basophils/100 WBC (Bld) 55.7 % 47-70 [facility] Basophils/100 WBC (Bld) 4.7 % 0-5 [facility] Basophils/100 WBC (Bld) 0.5 % 0-1 [facility] Bilirubin [Mass/Vol] 0.40 mg/dL 0.20-1.00 [facility] Comment on above: For patients on eltr ombopag therapy, use of Dimension Bowman TBIL is not recommended. Chloride [Moles/Vol] 105 mmol/L 98-107 [facility] Eosinophils/100 WBC (Bld) 4.7 % 0-5 [facility] Glucose [Mass/Vol] 95 mg/dL 74-[address] [facility] Neutrophils (Bld) [#/Vol] 3.3 10*3/uL 2.0-7.7 [facility] Neutrophils/100 WBC (Bld) 55.7 % 47-70 [facility] Potassium [Moles/Vol] 3.5 mmol/L 3.5-5.[address] [facility] Protein [Mass/Vol] 7.4 g/dL 6.4-8.[address] [facility] Sodium [Moles/Vol] 138 mmol/L 136-[address] [facility] WBC (Bld) [#/Vol] 6.0 10*3/uL 4.4-11.[address] [facility] Blood erythrocytes count (nu mber/volume)Ordered By: Jesi Padilla on 11-19-2022 RBC (Bld) [#/Vol] 4.91 10*6/uL 4.2-5.4 [facility] Blood hemoglobin measurement (mass/volume)Ordered By: Jesi Padilla on 11-19-2022 Hemoglobin (Bld) [Mass/Vol] 13.5 g/dL 12.0-15.0 [facility] Blood lymphocytes/100 leukoc ytesOrdered By: Jesi Padilla on 11-19-2022 Lymphocytes/100 WBC (Bld) 30.7 % 19-41 [facility] Blood monocytes/100 leukocyt esOrdered By: Jesi Padilla on 11-19-2022 Monocytes/100 WBC (Bld) 8.1 % 0-10 [facility] Blood platelet mean volumeOr dered By: Jesi Padilla on 11-19-2022 Platelet mean volume (Bld) [Entitic vol] 10.7 fL 6.2-12.0 [facility] Determination of erythrocyte mean corpuscular volume (MCV)Ordered By: Jesi Padilla on 11-19-2022 MCV (RBC) [Entitic vol] 85.3 fL 81-99 [facility] Hematocrit Auto (Bld) [Volum e fraction]Ordered By: Jesi Padilla on 11-19-2022 Hematocrit (Bld) [Volume fraction] 41.9 % 37-47 [facility] Laboratory - Chemistry and C hemistry - challengeOrdered By: Jesi Padilla on 11-19-2022 ALP [Catalytic activity/Vol] 74 U/L 45-117 [facility] ALT [Catalytic activity/Vol] 25 U/L 13-56 [facility] CO2 [Moles/Vol] 30.0 mmol/L 21.0-32.0 [facility] Globulin (S) [Mass/Vol] 3.7 g/dL 2.2-4.2 [facility] Lipase [Catalytic activity/Vol] 30 U/L 13-75 [facility] Comment on above: Please note:LIPASE r evised reference range effective 22. New Lipase methodology. Expected to produce lower values than the previous assay method. NEW Reference Range: 13 - 75 U/L Urea nitrogen/Creatinine [Mass ratio] 13.7 mg/mg 10-20 [facility] Laboratory - Hematology and Cell countsOrdered By: Jesi Padilla on 11-19-2022 Erythrocyte distribution width (RBC) [Entitic vol] 39.4 fL 35.1-43.9 [facility] Erythrocyte distribution width (RBC) [Ratio] 12.7 % 11.6-14.6 [facility] Immature granulocytes/100 WBC (Bld) 0.300 % 0.0-0.9 [facility] Comment on above: IG% - Immature Granu locytes (promyelocytes, myelocytes and metamyelocytes) > 1% indicates that a LEFT SHIFT is Present. MCH (RBC) [Entitic mass] 27.5 pg 27.0-32.0 [facility] Nucleated RBC/100 WBC (Bld) [Ratio] 0 % 0-5 [facility] MCHC Auto (RBC) [Mass/Vol]Or dered By: Jesi Padilla on 11-19-2022 MCHC (RBC) [Mass/Vol] 32.2 g/dL 32-[address] [facility] No Panel InformationOrdered By: eJsi Padilla on 11-19-2022 Estimated Creatinine Clearance Calc 91.88 ml/min [facility] Estimated GFR (MDRD) Amer 105 mL/min >60 [facility] Comment on above: GFR Calc Estimated GFR (MDRD) Non-Af Amer 86 mL/min >60 [facility] Comment on above: Non- GFR Calc 27.5 pg 27.0-32.0 [facility] 12.7 % 11.6-14.6 [facility] 39.4 fl 35.1-43.9 [facility] 0.300 % 0.0-0.9 [facility] 0 % 0-5 [facility] 86 mL/min >60 [facility] 105 mL/min >60 [facility] 91.88 ml/min [facility] 13.7 RATIO 10-20 [facility] 3.7 g/dL 2.2-4.2 [facility] 30 U/L 13-75 [facility] 74 U/L 45-117 [facility] 25 U/L 13-56 [facility] 30.0 mmol/L 21.0-32.0 [facility] Platelets bldOrdered By: Emily Padilla on 11-19-2022 Platelets (Bld) [#/Vol] 194 10*3/uL 150-450 [facility] Serum or plasma albumin mg urement (mass/volume)Ordered By: Jesi Padilla on 11-19-2022 Albumin [Mass/Vol] 3.7 g/dL 3.2-5.[address] [facility] Serum or plasma albumin/glob ulin mass ratioOrdered By: Jesi Padilla on 11-19-2022 Albumin/Globulin [Mass ratio] 1.0 {ratio} 0.9-2.4 [facility] Serum or plasma calcium mg urement (mass/volume)Ordered By: Jesi Padilla on 11-19-2022 Calcium [Mass/Vol] 9.2 mg/dL 8.5-10.[address] [facility] Serum or plasma creatinine m easurement (mass/volume)Ordered By: Jesi Padilla on 11-19-2022 Creatinine [Mass/Vol] 0.80 mg/dL 0.55-1.[address] [facility] Comment on above: The validity of the calculated GFR & GFRAA in patients over 70 years has not been determined. Clinical correlation is essential. Serum or plasma urea nitroge n measurement (mass/volume)Ordered By: Jesi Padilla on 11-19-2022 Urea nitrogen [Mass/Vol] 11 mg/dL 7-18 [facility] Thin prep Papanicolaou smear with manual screeningOrdered By: Jesi Padilla on 11-19-2022 Thin prep Papanicolaou smear with manual screening 15 U/L 15-37 [facility] Thin prep Papanicolaou smear with manual screening 3 5-15 [facility] CNOVSPon 11-16-2022 CNOVSP Visit (SP) Office (AGGYNONPOB) LANA RIVERA Giselle ([id number]) 1985 F Date Time Provider Department 11/16/22 10:30 AM LUKASZ EUBANKS AGGGHAZALPODom During your visit today, we recorded the following information about you: Temperature Pulse Blood pressure Weight 98.6 degrees 79/minute 125/90 102.1 kg Height 1.676 m Lukasz Eubanks MD 07/08/2023 9:43 AM Signed GYNECOLOGIC ONCOLOGY HISTORY AND PHYSICAL EXAMINATION SERVICE DATE: 11/16/2022 SERVICE TIME: 4:55 PM PRIMARY CARE PHYSICIAN: Nima Kaur MD CHIEF COMPLAINT/HISTORY OF PRESENT ILLNESS/ROS: CC: [...] years as her is s/p vasectomy. Her Emission Technician is Dr. Garcia and Dr. Moore The [...] bleeding, vaginal discharge and vaginal pain. PAST MEDICAL/SURGICAL/OB-CONE FORMER /FAMILY/SOCIAL HISTORY: PAST MEDICAL HISTORY Diagnosis Date ADHD [...] 12/27/2018 Specifically denies any history of diabetes, NH, or VTE. Melanoma on left breast, removed 3 years ago PAST SURGICAL HISTORY Procedure Laterality Date 2D ECHO (EXEP) 05/24/2016 EF=62%, no abnormalities B1 GRF FEM H/N INTERTRCHNTRIC/SUBTRCHN TRIC AREA 2003 Femur/Knee PAST SURGICAL HISTORY OF 2003 repair of broken femur, radius and ulna REMOVAL OF OVARY(S) Left 03/22/2022 SALPINGECTOMY Bilateral 03/22/2022 STRESS TEST 07/07/2016 stress test negative THYROIDECTOMY TOTAL/COMPLETE 02/07/2020 total for thyromegaly VAGINAL HYSTERECTOMY 03/22/2022 Denies any other history of abdominal surgery PAST CLINICAL CODER HISTORY: OB History OB History T3 L2 SAB0 IAB1 Ectopic0 Multiple0 Live Births2 (more content not included)... Normal [facility] CNPLaurita 11-10-2022 CNPN Telephone (NOMAN Fernandes) LANA RIVERA ([id number]) 1985 F Date Time Provider Department 11/10/22 LUKASZ EUBANKS During your visit today, we recorded the following information about you: Azra Weaver 11/10/2022 8:41 AM Signed Returning patients message, LMTCO and reschedule appointment that patient canceled. Azra Weaver 11/10/22 Allergies As of Date: 11/10/2022 Noted Allergy Reaction LATEX 04/10/2012 2 - Rash PENICILLINS 02/17/2010 4 - Hives HYDROCODONE 11/09/2022 16 - Unknown BENTYL (DICYCLOMINE) 05/27/2015 5 - Intolerance LEXAPRO (ESCITALOPRAM OXALATE) 02/25/2016 14 - Other: See Comments Comments: made her feel light headed and issues with focus. NAPROSYN (NAPROXEN) 06/03/2019 16 - Unknown Comments: Allergy since a child PHENERGAN (PROMETHAZINE HCL) 12/27/2017 16 - Unknown TORADOL (KETOROLAC) 05/27/2015 16 - Unknown ZOFRAN (ONDANSETRON HCL (PF)) 08/16/2012 14 - Other: See Comments Comments: Migraines ZOLOFT (SERTRALINE HCL) 02/25/2016 14 - Other: See Comments Comments: Dizzy and headache Date Reviewed: 12/31/2020 Reviewed by: Ingrid Sanchez LPN - Fully Assessed Reason for Visit: Appointment [[id number]] Returning Patient's Call [[phone]] Prescriptions as of 11/10/2022 - hydrOXYzine pamoate (VISTARIL) 25 mg capsule hydroxyzine pamoate 25 mg capsule Take 25 mg BY MOUTH THREE TIMES DAILY As Needed for anxiety - naltrexone-bupropion (CONTRAVE) 8-90 mg ER tablet Take one tab a day for a week, then one twice a day for a week, then two in Am and one in PM for a week then two twice a day. - levothyroxine (SYNTHROID) 137 mcg tablet Take 1 tablet by mouth daily before breakfast. Takes two tabs first and third week of month per endo - ketoprofen (ORUDIS) 75 mg capsule TAKE ONE CAPSULE AT ONSET OF HEADACHE MAX of 3 tabs in 24 hrs at 8 hrs apart. Max OF 20 CAPS PER MONTH - amphetamine-dextroamphe tamine XR (ADDERALL XR) 15 mg 24 hr capsule Take 1 capsule by mouth once daily for 30 days. - DULoxetine 40 mg cpDR Take 1 capsule by mouth once daily. - prochlorperazine (COMPAZINE) 10 mg tablet TAKE ONE TABLET BY MOUTH WITH KETOPROFEN Problem List As Of Date 11/10/2022 Noted Resolved PCOS (polycystic ovarian syndrome) [E28.2] 03/02/2011 Sebaceous cyst [L72.3] 02/15/2012 07/14/2015 Quit smoking [Z87.891] 04/10/2012 07/14/2015 Varicose veins [I83.90] 04/10/2012 Placental abruption, antepartum [O45.90] 06/20/2012 12/12/2012 Backache symptom [M54.9] 02/26/2013 07/14/2015 Fatty liver [K76.0] 05/06/2014 Hypothyroidism (acquired) [E03.9] 06/29/2015 Depression [F32.A] 05/11/2016 Neck pain [M54.2] 05/19/2016 Chronic left shoulder pain [M25.512, G89.29] 05/19/2016 Obesity (BMI 35.0-39.9 without comorbidity) [E6*12/09/2016 Migraine without aura and without status migrai*02/27/2017 Post herpetic neuralgia [B02.29] 02/12/2018 Smoker [F17.200] 04/19/2018 Pleural effusion [J90] 2018 06/09/2020 Encounter for screening for diabetes mellitus [*10/12/2018 Muscle tightness [M62.89] 11/05/2018 NICOLÁS (generalized anxiety disorder) [F41.1] 12/25/2018 Vitamin B12 deficiency [E53.8] 12/27/2018 ADHD (attention deficit hyperactivity disorder)*03/28/2019 Medication management [Z79.899] 08/11/2020 Elevated hemoglobin A1c [R73.09] 08/12/2020 Lumbar herniated disc [M51.26] 09/09/2020 Lung nodules [R91.8] 11/10/2020 NO SHOW 12/02/2020 Encounter Status:Closed by AZRA WEAVER on 11/10/22 [facility] Absolute lymphocyte countOrd ered By: Dr. Luis on 11-08-2022 Lymphocytes Auto (Unsp spec) [#/Vol] 1.54 10*3/uL 0.83-4.51 [facility] Basophil percentageOrdered B y: Dr. Luis on 11-08-2022 Basophil percentage 0 SEEN /hpf 0-5 [facility] Basophil percentage 84 mg/dL 74-106 [facility] Basophil percentage 7.6 g/dL 6.4-8.2 [facility] Basophil percentage 0.20 mg/dL 0.20-1.00 [facility] Basophil percentage 137 mmol/L 136-145 [facility] Basophil percentage 3.2 mmol/L 3.5-5.1 [facility] Basophil percentage 105 mmol/L 98-107 [facility] Basophils (Bld) [#/Vol] 5.7 10*3/uL 4.4-11.0 [facility] Basophils (Bld) [#/Vol] 3.2 10*3/uL 2.0-7.7 [facility] Basophils/100 WBC (Bld) 56.0 % 47-70 [facility] Basophils/100 WBC (Bld) 4.6 % 0-5 [facility] Basophils/100 WBC (Bld) 0.7 % 0-1 [facility] Basophil percentageOrdered B y: Dimple Luis on 11-08-2022 Bilirubin [Mass/Vol] 0.20 mg/dL 0.20-1.00 [facility] Comment on above: For patients on eltr ombopag therapy, use of Dimension Bowman TBIL is not recommended. Chloride [Moles/Vol] 105 mmol/L 98-107 [facility] Eosinophils/100 WBC (Bld) 4.6 % 0-5 [facility] Glucose [Mass/Vol] 84 mg/dL 74-[address] [facility] Neutrophils (Bld) [#/Vol] 3.2 10*3/uL 2.0-7.7 [facility] Neutrophils/100 WBC (Bld) 56.0 % 47-70 [facility] Potassium [Moles/Vol] 3.2 mmol/L 3.5-5.[address] [facility] Protein [Mass/Vol] 7.6 g/dL 6.4-8.[address] [facility] Sodium [Moles/Vol] 137 mmol/L 136-[address] [facility] WBC (Bld) [#/Vol] 5.7 10*3/uL 4.4-11.[address] [facility] Bilirubin Test strip Ql (U)O rdered By: Dr. Luis on 11-08-2022 Bilirubin Ql (U) Negative Negative [facility] Blood erythrocytes count (nu mber/volume)Ordered By: Dr. Luis on 11-08-2022 RBC (Bld) [#/Vol] 5.01 10*6/uL 4.2-5.4 [facility] Blood hemoglobin measurement (mass/volume)Ordered By: Dr. Luis on 11-08-2022 Hemoglobin (Bld) [Mass/Vol] 13.7 g/dL 12.0-15.0 [facility] Blood lymphocytes/100 leukoc ytesOrdered By: Dr. Luis on 11-08-2022 Lymphocytes/100 WBC (Bld) 27.2 % 19-41 [facility] Blood monocytes/100 leukocyt esOrdered By: Dr. Luis on 11-08-2022 Monocytes/100 WBC (Bld) 11.3 % 0-10 [facility] Blood platelet mean volumeOr dered By: Dr. Luis on 11-08-2022 Platelet mean volume (Bld) [Entitic vol] 11.3 fL 6.2-12.0 [facility] Determination of erythrocyte mean corpuscular volume (MCV)Ordered By: Dr. Luis on 11-08-2022 MCV (RBC) [Entitic vol] 85.2 fL 81-99 [facility] Direct bilirubinOrdered By: Dr. Luis on 11-08-2022 Bilirubin.direct [Mass/Vol] 0.07 mg/dL 0.00-0.30 [facility] Hematocrit Auto (Bld) [Volum e fraction]Ordered By: Dr. Luis on 11-08-2022 Hematocrit (Bld) [Volume fraction] 42.7 % 37-47 [facility] Ketones Test strip Ql (U)Ord ered By: Dr. Luis on 11-08-2022 Ketones Ql (U) Negative Negative [facility] Laboratory - Chemistry and C hemistry - challengeOrdered By: Dimple Luis on 11-08-2022 ALP [Catalytic activity/Vol] 72 U/L 45-117 [facility] ALT [Catalytic activity/Vol] 20 U/L 13-56 [facility] CO2 [Moles/Vol] 27.0 mmol/L 21.0-32.0 [facility] Globulin (S) [Mass/Vol] 3.8 g/dL 2.2-4.2 [facility] Lipase [Catalytic activity/Vol] 46 U/L 13-75 [facility] Comment on above: Please note:LIPASE r evised reference range effective 22. New Lipase methodology. Expected to produce lower values than the previous assay method. NEW Reference Range: 13 - 75 U/L Urea nitrogen/Creatinine [Mass ratio] 14.6 mg/mg 10-20 [facility] Laboratory - Hematology and Cell countsOrdered By: Dimple Luis on 11-08-2022 Erythrocyte distribution width (RBC) [Entitic vol] 39.6 fL 35.1-43.9 [facility] Erythrocyte distribution width (RBC) [Ratio] 12.9 % 11.6-14.6 [facility] Immature granulocytes/100 WBC (Bld) 0.200 % 0.0-0.9 [facility] Comment on above: IG% - Immature Granu locytes (promyelocytes, myelocytes and metamyelocytes) > 1% indicates that a LEFT SHIFT is Present. MCH (RBC) [Entitic mass] 27.3 pg 27.0-32.0 [facility] Nucleated RBC/100 WBC (Bld) [Ratio] 0 % 0-5 [facility] MCHC Auto (RBC) [Mass/Vol]Or dered By: Dr. Luis on 11-08-2022 MCHC (RBC) [Mass/Vol] 32.1 g/dL 32-[address] [facility] Mucus LM Ql (Urine sed)Order ed By: Dr. Luis on 11-08-2022 Mucus Ql (Urine sed) 0 SEEN /hpf [facility] Nitrite Test strip Ql (U)Ord ered By: Dr. Luis on 11-08-2022 Nitrite Ql (U) Negative Negative [facility] No Panel InformationOrdered By: Dimple Luis on 11-08-2022 Estimated Creatinine Clearance Calc 98.01 ml/min [facility] Estimated GFR (MDRD) Amer 112 mL/min >60 [facility] Comment on above: GFR Calc Estimated GFR (MDRD) Non-Af Amer 93 mL/min >60 [facility] Comment on above: Non- GFR Calc No Panel InformationOrdered By: Dr. Luis on 11-08-2022 27.3 pg 27.0-32.0 [facility] 12.9 % 11.6-14.6 [facility] 39.6 fl 35.1-43.9 [facility] 0.200 % 0.0-0.9 [facility] 0 % 0-5 [facility] 93 mL/min >60 [facility] 112 mL/min >60 [facility] 98.01 ml/min [facility] 14.6 RATIO 10-20 [facility] 3.8 g/dL 2.2-4.2 [facility] 46 U/L 13-75 [facility] 72 U/L 45-117 [facility] 20 U/L 13-56 [facility] 27.0 mmol/L 21.0-32.0 [facility] Platelets bldOrdered By: Dr. Luis on 11-08-2022 Platelets (Bld) [#/Vol] 189 10*3/uL 150-450 [facility] Protein Test strip Ql (U)Ord ered By: Dr. Luis on 11-08-2022 Protein Ql (U) Negative Negative [facility] Serum or plasma albumin mg urement (mass/volume)Ordered By: Dr. Luis on 11-08-2022 Albumin [Mass/Vol] 3.8 g/dL 3.2-5.[address] [facility] Serum or plasma calcium mg urement (mass/volume)Ordered By: Dr. Luis on 11-08-2022 Calcium [Mass/Vol] 9.3 mg/dL 8.5-10.[address] [facility] Serum or plasma creatinine m easurement (mass/volume)Ordered By: Dr. Luis on 11-08-2022 Creatinine [Mass/Vol] 0.75 mg/dL 0.55-1.[address] [facility] Comment on above: The validity of the calculated GFR & GFRAA in patients over 70 years has not been determined. Clinical correlation is essential. Serum or plasma urea nitroge n measurement (mass/volume)Ordered By: Dr. Luis on 11-08-2022 Urea nitrogen [Mass/Vol] 11 mg/dL 7-18 [facility] Squamous epithelial cells de tection in urine sediment by light microscopyOrdered By: Dr. Luis on 11-08-2022 Epithelial cells.squamous LM Ql (Urine sed) 0-5 SEEN /hpf 5-10 [facility] Thin prep Papanicolaou smear with manual screeningOrdered By: Dr. Luis on 11-08-2022 Thin prep Papanicolaou smear with manual screening 10 U/L 15-37 [facility] Thin prep Papanicolaou smear with manual screening 5 5-15 [facility] Urine blood detectionOrdered By: Dr. Luis on 11-08-2022 RBC Ql (U) Negative Negative [facility] RBC Ql (U) 0 SEEN /hpf 0-5 [facility] Urine clarityOrdered By: Dr. Luis on 11-08-2022 Clarity (U) Clear Clear [facility] Urine color determinationOrd ered By: Dr. Luis on 11-08-2022 Color (U) Yellow Yellow [facility] Urine glucose detectionOrder ed By: Dr. Luis on 11-08-2022 Glucose Ql (U) Normal mg/dl Normal [facility] Urine leukocyte esterase det ection by dipstickOrdered By: Dr. Luis on 11-08-2022 Leukocyte esterase Test strip Ql (U) Negative Negative [facility] Urine pHOrdered By: Dr. John apodaca on 11-08-2022 pH (U) 6.5 [pH] 5.0 - 8.0 [facility] Urine sediment bacteria coun t by microscopy (number/high power field)Ordered By: Dr. Luis on 11-08-2022 Bacteria LM.HPF (Urine sed) [#/Area] RARE /hpf None Seen [facility] Urine specific gravity measu rementOrdered By: Dr. Luis on 11-08-2022 Specific gravity (U) [Rel density] 1.015 1.002-1.030 [facility] Urobilinogen Auto test strip Ql (U)Ordered By: Dr. Luis on 11-08-2022 Urobilinogen Ql (U) Normal mg/dl Normal [facility] .Auto Diffon 10-11-2022 Basophil, Absolute 0.0 10 3/mcL Normal 0.0-0.2 [facility] ([place]) Comment on above: Performed By: #### A DIFF, CMP, MDW, LIP, CBC, ANEU, GFR #### [address] [address] Basophils/100 WBC (Bld) 0.9 % Normal 0.0-2.5 A [facility] ([place]) Comment on above: Performed By: #### A DIFF, CMP, MDW, LIP, CBC, ANEU, GFR #### [id number] [place], [place] [address] Eosinophil, Absolute 0.3 10 3/mcL Normal 0.0-0.4 [facility] ([place]) Comment on above: Performed By: #### A DIFF, CMP, MDW, LIP, CBC, ANEU, GFR #### [address] [address] Eosinophils/100 WBC (Bld) 5.3 % Normal 0.0-7.0 [facility] ([place]) Comment on above: Performed By: #### A DIFF, CMP, MDW, LIP, CBC, ANEU, GFR #### [address] [address] Lymphocyte, Absolute 1.7 10 3/mcL Normal 0.8-3.9 [facility] ([place]) Comment on above: Performed By: #### A DIFF, CMP, MDW, LIP, CBC, ANEU, GFR #### [address] [address] Lymphocytes/100 WBC (Bld) 33.5 % Normal 10.0-50.0 [facility] ([place]) Comment on above: Performed By: #### A DIFF, CMP, MDW, LIP, CBC, ANEU, GFR #### [address] [address] Monocyte, Absolute 0.5 10 3/mcL Normal 0.2-1.0 [facility] ([place]) Comment on above: Performed By: #### A DIFF, CMP, MDW, LIP, CBC, ANEU, GFR #### [address] [address] Monocytes/100 WBC (Bld) 10.0 % Normal 1.7-13.0 [facility] ([place]) Comment on above: Performed By: #### A DIFF, CMP, MDW, LIP, CBC, ANEU, GFR #### [address] [address] Neutrophils/100 WBC (Bld) 50.3 % Normal 37.0-80.0 [facility] ([place]) Comment on above: Performed By: #### A DIFF, CMP, MDW, LIP, CBC, ANEU, GFR #### [address] [address] .GFRon 10-11-2022 GFR 102 ml/min/1.73sqm Normal [facility] ([place]) Comment on above: Result Comment: GFR Population mean for , Non- Americans Ages 20-29 = 116 mL/min/1.73 sq.m. Ages 30-39 = 107 mL/min/1.73 sq.m. Ages 40-49 = 99 mL/min/1.73 sq.m. Ages 50-59 = 93 mL/min/1.73 sq.m. Ages 60-69 = 85 mL/min/1.73 sq.m. Ages 70+ = 75 mL/min/1.73 sq.m. Chronic Kidney Disease: Less than 60 mL/min/1.73 square meters End Stage Renal Disease: Less than 15 mL/min/1.73 square meters Performed By: #### A DIFF, CMP, MDW, LIP, CBC, ANEU, GFR #### [address] [address] GFR Non- 84 ml/min/1.73sqm Normal [facility] ([place]) Comment on above: Result Comment: GFR Population mean for , Non- Americans Ages 20-29 = 116 mL/min/1.73 sq.m. Ages 30-39 = 107 mL/min/1.73 sq.m. Ages 40-49 = 99 mL/min/1.73 sq.m. Ages 50-59 = 93 mL/min/1.73 sq.m. Ages 60-69 = 85 mL/min/1.73 sq.m. Ages 70+ = 75 mL/min/1.73 sq.m. Chronic Kidney Disease: Less than 60 mL/min/1.73 square meters End Stage Renal Disease: Less than 15 mL/min/1.73 square meters Performed By: #### A DIFF, CMP, MDW, LIP, CBC, ANEU, GFR #### [address] [address] .MDWon 10-11-2022 Monocyte Distribution Width 17.66 Normal 0.00-20.00 [facility] ([place]) Comment on above: Result Comment: For ED adult patients suspected of sepsis, MDW<=20.0 does not rule out sepsis or risk of sepsis Performed By: #### A DIFF, CMP, MDW, LIP, CBC, ANEU, GFR #### [place] [address] .NEUABSon 10-11-2022 Neutrophil, Absolute 2.6 10 3/mcL Low 2.9-6.2 [facility] ([place]) Comment on above: Performed By: #### A DIFF, CMP, MDW, LIP, CBC, ANEU, GFR #### [place] [address] CBCon 10-11-2022 Erythrocyte distribution width (RBC) [Ratio] 13.5 % Normal 11.5-14.5 [facility] ([place]) Comment on above: Performed By: #### A DIFF, CMP, MDW, LIP, CBC, ANEU, GFR #### [place] [address] Hematocrit (Bld) [Volume fraction] 40.8 % Normal 37.0-47.0 [facility] ([place]) Comment on above: Performed By: #### A DIFF, CMP, MDW, LIP, CBC, ANEU, GFR #### [place] [address] Hgb 13.7 G/dL Normal 12.0-16.0 [facility] ([place]) Comment on above: Performed By: #### A DIFF, CMP, MDW, LIP, CBC, ANEU, GFR #### [place] [address] MCH (RBC) [Entitic mass] 28.0 pg Normal 27.0-31.2 [facility] ([place]) Comment on above: Performed By: #### A DIFF, CMP, MDW, LIP, CBC, ANEU, GFR #### [place] [address] MCHC 33.6 G/dL Normal 33.0-37.0 [facility] ([place]) Comment on above: Performed By: #### A DIFF, CMP, MDW, LIP, CBC, ANEU, GFR #### [address] [address] MCV (RBC) [Entitic vol] 83.2 fL Normal 80.0-94.0 A [facility] ([place]) Comment on above: Performed By: #### A DIFF, CMP, MDW, LIP, CBC, ANEU, GFR #### [address] [address] Platelet 171 10 3/mcL Normal 130-400 [facility] ([place]) Comment on above: Performed By: #### A DIFF, CMP, MDW, LIP, CBC, ANEU, GFR #### [address] [address] Platelet mean volume (Bld) [Entitic vol] 9.2 fL Normal 7.4-10.4 [facility] ([place]) Comment on above: Performed By: #### A DIFF, CMP, MDW, LIP, CBC, ANEU, GFR #### [address] [address] RBC 4.91 10 6/mcL Normal 4.20-5.40 [facility] ([place]) Comment on above: Performed By: #### A DIFF, CMP, MDW, LIP, CBC, ANEU, GFR #### [address] [address] WBC 5.2 10 3/mcL Normal 4.6-10.8 [facility] ([place] Comment on above: Performed By: #### A DIFF, CMP, MDW, LIP, CBC, ANEU, GFR #### [address] [address] CMPon 10-11-2022 Albumin Level 3.9 G/dL Normal 3.5-5.0 [facility] ([place]) Comment on above: Performed By: #### A DIFF, CMP, MDW, LIP, CBC, ANEU, GFR #### [address] [address] Albumin/Globulin [Mass ratio] 1.3 {ratio} Normal 1.1-2.5 [facility] ([place] Comment on above: Performed By: #### A DIFF, CMP, MDW, LIP, CBC, ANEU, GFR #### [address] [address] ALP [Catalytic activity/Vol] 78 U/L Normal 40-135 [facility] ([place] Comment on above: Performed By: #### A DIFF, CMP, MDW, LIP, CBC, ANEU, GFR #### [address] [address] ALT [Catalytic activity/Vol] 17 U/L Normal 14-59 [facility] ([place] Comment on above: Performed By: #### A DIFF, CMP, MDW, LIP, CBC, ANEU, GFR #### [address] [address] AST [Catalytic activity/Vol] 11 U/L Normal 10-40 [facility] ([place] Comment on above: Performed By: #### A DIFF, CMP, MDW, LIP, CBC, ANEU, GFR #### [address] [address] Bili Total 0.2 mg/dL Normal 0.2-1.0 [facility] ([place]) Comment on above: Result Comment: Use of this assay is not recommended for patients undergoing treatment with eltrombopag due to the potential for falsely elevated results. Performed By: #### A DIFF, CMP, MDW, LIP, CBC, ANEU, GFR #### [address] [address] BUN/Creatinine Ratio 12 ratio Normal 7-27 [facility] ([place]) Comment on above: Performed By: #### A DIFF, CMP, MDW, LIP, CBC, ANEU, GFR #### [address] [address] Calcium [Mass/Vol] 8.7 mg/dL Normal 8.4-10.2 [facility] ([place]) Comment on above: Performed By: #### A DIFF, CMP, MDW, LIP, CBC, ANEU, GFR #### [address] [address] Chloride [Moles/Vol] 104 mmol/L Normal 98-107 [facility] ([place] Comment on above: Performed By: #### A DIFF, CMP, MDW, LIP, CBC, ANEU, GFR #### [address] [address] CO2 [Moles/Vol] 28 mmol/L Normal 22-29 [facility] ([place]) Comment on above: Performed By: #### A DIFF, CMP, MDW, LIP, CBC, ANEU, GFR #### [address] [address] Creatinine [Mass/Vol] 0.78 mg/dL Normal 0.55-1.02 [facility] ([place]) Comment on above: Performed By: #### A DIFF, CMP, MDW, LIP, CBC, ANEU, GFR #### [address] [address] Electrolyte Balance 8.0 mEq/L Normal 4.0-15.0 [facility] Comment on above: Performed By: #### A DIFF, CMP, MDW, LIP, CBC, ANEU, GFR #### [address] [address] Globulin 3.0 G/dL Normal [facility] ([place]) Comment on above: Performed By: #### A DIFF, CMP, MDW, LIP, CBC, ANEU, GFR #### [address] [address] Glucose [Mass/Vol] 106 mg/dL High 70-105 [facility] ([place]) Comment on above: Performed By: #### A DIFF, CMP, MDW, LIP, CBC, ANEU, GFR #### [address] [address] Potassium [Moles/Vol] 3.5 mmol/L Normal 3.5-5.1 [facility] ([place]) Comment on above: Performed By: #### A DIFF, CMP, MDW, LIP, CBC, ANEU, GFR #### [place] [address] Sodium [Moles/Vol] 140 mmol/L Normal 136-145 [facility] ([place]) Comment on above: Performed By: #### A DIFF, CMP, MDW, LIP, CBC, ANEU, GFR #### [place] [address] [place], [place] [address] Total Protein 6.9 G/dL Normal 6.4-8.2 [facility] ([place]) Comment on above: Performed By: #### A DIFF, CMP, MDW, LIP, CBC, ANEU, GFR #### [place] [address] [place], [place] [address] Urea nitrogen [Mass/Vol] 9 mg/dL Normal 7-18 [facility] ([place]) Comment on above: Performed By: #### A DIFF, CMP, MDW, LIP, CBC, ANEU, GFR #### [place] [address] [place], [place] [address] CT ABD/PELVIS W/ IV CONTRAST ONLYon 10-11-2022 CT ABD/PELVIS W/ IV CONTRAST ONLY ORIGINAL EXAMINATION: CT OF THE ABDOMEN AND PELVIS WITH CONTRAST 10/11/2022 9:31 pm TECHNIQUE: CT of the abdomen and pelvis was performed with the administration of intravenous contrast. Multiplanar reformatted images are provided for review. Automated exposure control, iterative reconstruction, and/or weight based adjustment of the mA/kV was utilized to reduce the radiation dose to as low as reasonably achievable. COMPARISON: May 01, 2014 HISTORY: ORDERING SYSTEM PROVIDED HISTORY: Reason for Exam: abdominal pain FINDINGS: Lower Chest: Normal heart size. Bandlike scarring in the right lower lobe. No focal consolidation or pleural effusion. Organs: The liver and biliary tract appears normal. The spleen appears normal. The pancreas appears normal. The adrenal glands appear normal. The kidneys enhance symmetrically with no evidence of nephrolithiasis or hydronephrosis. GI/Bowel: There is no evidence of obstruction. The appendix is normal. Pelvis: There are postsurgical changes of hysterectomy. The right ovary is prominent measuring up to 4.9 cm AP x 4.3 cm TV by 2.7 cm SI. Left ovary appears normal. Peritoneum/Retroperiton eum: There is no intraperitoneal free air or ascites. The aorta and its major branches appear normal. Stable lower pelvis varices. No lymphadenopathy is identified. Bones/Soft Tissues: Degenerative changes are noted in the spine. Scarring in the anterior abdominal wall. Small umbilical hernia containing fat. IMPRESSION: 1. Prominent right ovary measuring up to 4.9 cm likely due to prominent follicles. 2. No definite acute abnormality identified. RECOMMENDATIONS: Unavailable Interpreted by: Germán Renteria Preliminary Report By: Germán Renteria Electronically signed By Germán Renteria Dictated Date: 10/11/2022 9:35:00 PM Prelim Date: 10/11/2022 9:56:00 PM Sign Date: 10/11/2022 9:56:00 PM Ordering Provider: BALDO FENG Normal [facility] ([place]) LIPon 10-11-2022 Lipase Level 42 U/L Normal 16-77 [facility] ([place]) Comment on above: Performed By: #### A DIFF, CMP, MDW, LIP, CBC, ANEU, GFR #### [address] [address] UAon 10-11-2022 Color (U) Yellow Normal [facility] ([place]) Comment on above: Performed By: #### U A #### [address] [address] Glucose (U) [Mass/Vol] 100 mg/dL Abnormal Negative [facility] ([place]) Comment on above: Performed By: #### U A #### [address] [address] Ketones Ql (U) Negative Normal Negative [facility] ([place]) Comment on above: Performed By: #### U A #### [address] [address] UA Appear Clear Normal Clear [facility] ([place]) Comment on above: Performed By: #### U A #### [address] [address] UA Blood Negative Normal Negative [facility] ([place]) Comment on above: Performed By: #### U A #### [address] [address] UA Leuk Est Negative Normal Negative [facility] ([place]) Comment on above: Performed By: #### U A #### [place] [address] UA Nitrite Negative Normal Negative [facility] ([place]) Comment on above: Performed By: #### U A #### [address] [address] UA pH 7.0 Normal 5.0 - 8.0 [facility] ([place]) Comment on above: Performed By: #### U A #### [address] [address] UA Protein Negative Normal Negative [facility] ([place]) Comment on above: Performed By: #### U A #### [address] [address] UA Spec Grav 1.025 Normal 1.015-1.025 [facility] ([place]) Comment on above: Performed By: #### U A #### [address] [address] UA Specimen Type Clean Catch Normal [facility] ([place]) Comment on above: Performed By: #### U A #### [address] [address] UA Urobilinogen 0.2 E.U./dL Normal 0.2-1.0 [facility] ([place]) Comment on above: Performed By: #### U A #### [address] [address] Urobilinogen (U) [Mass/Vol] Negative Normal Negative [facility] ([place]) Comment on above: Performed By: #### U A #### [address] [address] Basophil percentageOrdered B y: Dr. Luis on 08-26-2022 Basophil percentage 104 mg/dL 74-106 [facility] Basophil percentage 139 mmol/L 136-145 [facility] Basophil percentage 3.7 mmol/L 3.5-5.1 [facility] Basophil percentage 106 mmol/L 98-107 [facility] Basophil percentageOrdered B y: Dimple Luis on 08-26-2022 Chloride [Moles/Vol] 106 mmol/L 98-107 [facility] Glucose [Mass/Vol] 104 mg/dL 74-[address] [facility] Comment on above: Fasting Glucose resu lt from 100 to 125 mg/dL suggests IMPAIRED HOMEOSTASIS per A.D.A. criteria. Potassium [Moles/Vol] 3.7 mmol/L 3.5-5.[address] [facility] Sodium [Moles/Vol] 139 mmol/L 136-[address] [facility] Laboratory - Chemistry and C hemistry - challengeOrdered By: Dimple Luis on 08-26-2022 CO2 [Moles/Vol] 27.0 mmol/L 21.0-32.0 [facility] Urea nitrogen/Creatinine [Mass ratio] 9.2 mg/mg 10-20 [facility] No Panel InformationOrdered By: Dimple Luis on 08-26-2022 Estimated Creatinine Clearance Calc 96.72 ml/min [facility] Estimated GFR (MDRD) Amer 111 mL/min >60 [facility] Comment on above: GFR Calc Estimated GFR (MDRD) Non-Af Amer 92 mL/min >60 [facility] Comment on above: Non- GFR Calc No Panel InformationOrdered By: Dr. Luis on 08-26-2022 92 mL/min >60 [facility] 111 mL/min >60 [facility] 96.72 ml/min [facility] 9.2 RATIO - [facility] 27.0 mmol/L 21.0-32.0 [facility] Serum or plasma calcium mg urement (mass/volume)Ordered By: Dr. Luis on 08-26-2022 Calcium [Mass/Vol] 8.6 mg/dL 8.5-10.[address] [facility] Serum or plasma creatinine m easurement (mass/volume)Ordered By: Dr. Luis on 08-26-2022 Creatinine [Mass/Vol] 0.76 mg/dL 0.55-1.[address] [facility] Comment on above: The validity of the calculated GFR & GFRAA in patients over 70 years has not been determined. Clinical correlation is essential. Serum or plasma urea nitroge n measurement (mass/volume)Ordered By: Dr. Luis on 08-26-2022 Urea nitrogen [Mass/Vol] 7 mg/dL 7-18 [facility] Thin prep Papanicolaou smear with manual screeningOrdered By: Dr. Luis on 08-26-2022 Thin prep Papanicolaou smear with manual screening 6 5-15 [facility] Absolute lymphocyte countOrd ered By: Dr. Luis on 08-17-2022 Lymphocytes Auto (Unsp spec) [#/Vol] 1.31 10*3/uL 0.83-4.51 [facility] Basophil percentageOrdered B y: Dr. Luis on 08-17-2022 Basophil percentage 128 mg/dL 74-106 [facility] Basophil percentage 138 mmol/L 136-145 [facility] Basophil percentage 3.9 mmol/L 3.5-5.1 [facility] Basophil percentage 106 mmol/L 98-107 [facility] Basophils (Bld) [#/Vol] 5.2 10*3/uL 4.4-11.0 [facility] Basophils (Bld) [#/Vol] 3.2 10*3/uL 2.0-7.7 [facility] Basophils/100 WBC (Bld) 62.1 % 47-70 [facility] Basophils/100 WBC (Bld) 4.0 % 0-5 [facility] Basophils/100 WBC (Bld) 0.4 % 0-1 [facility] Basophil percentageOrdered B y: Dimple Luis on 08-17-2022 Chloride [Moles/Vol] 106 mmol/L 98-107 [facility] Eosinophils/100 WBC (Bld) 4.0 % 0-5 [facility] Glucose [Mass/Vol] 128 mg/dL 74-[address] [facility] Comment on above: Fasting Glucose resu lt greater than or equal to 126 mg/dL suggests DIABETES MELLITUS per A.D.A. criteria. Neutrophils (Bld) [#/Vol] 3.2 10*3/uL 2.0-7.7 [facility] Neutrophils/100 WBC (Bld) 62.1 % 47-70 [facility] Potassium [Moles/Vol] 3.9 mmol/L 3.5-5.[address] [facility] Sodium [Moles/Vol] 138 mmol/L 136-[address] [facility] WBC (Bld) [#/Vol] 5.2 10*3/uL 4.4-11.[address] [facility] Beta hCG serum qualOrdered B y: Dr. Luis on 08-17-2022 Beta HCG ( test) Ql Negative [facility] Blood erythrocytes count (nu mber/volume)Ordered By: Dr. Luis on 08-17-2022 RBC (Bld) [#/Vol] 5.00 10*6/uL 4.2-5.4 [facility] Blood hemoglobin measurement (mass/volume)Ordered By: Dr. Luis on 08-17-2022 Hemoglobin (Bld) [Mass/Vol] 13.8 g/dL 12.0-15.0 [facility] Blood lymphocytes/100 leukoc ytesOrdered By: Dr. Luis on 08-17-2022 Lymphocytes/100 WBC (Bld) 25.2 % 19-41 [facility] Blood monocytes/100 leukocyt esOrdered By: Dr. Luis on 08-17-2022 Monocytes/100 WBC (Bld) 7.9 % 0-10 [facility] Blood platelet mean volumeOr dered By: Dr. Luis on 08-17-2022 Platelet mean volume (Bld) [Entitic vol] 10.8 fL 6.2-12.0 [facility] Determination of erythrocyte mean corpuscular volume (MCV)Ordered By: Dr. Luis on 08-17-2022 MCV (RBC) [Entitic vol] 85.4 fL 81-99 [facility] Hematocrit Auto (Bld) [Volum e fraction]Ordered By: Dr. Luis on 08-17-2022 Hematocrit (Bld) [Volume fraction] 42.7 % 37-47 [facility] Laboratory - Chemistry and C hemistry - challengeOrdered By: Dimple Luis on 08-17-2022 CO2 [Moles/Vol] 27.0 mmol/L 21.0-32.0 [facility] Urea nitrogen/Creatinine [Mass ratio] 13.4 mg/mg 10-20 [facility] Laboratory - Hematology and Cell countsOrdered By: Dimple Luis on 08-17-2022 Erythrocyte distribution width (RBC) [Entitic vol] 39.5 fL 35.1-43.9 [facility] Erythrocyte distribution width (RBC) [Ratio] 12.8 % 11.6-14.6 [facility] Immature granulocytes/100 WBC (Bld) 0.400 % 0.0-0.9 [facility] Comment on above: IG% - Immature Granu locytes (promyelocytes, myelocytes and metamyelocytes) > 1% indicates that a LEFT SHIFT is Present. MCH (RBC) [Entitic mass] 27.6 pg 27.0-32.0 [facility] Nucleated RBC/100 WBC (Bld) [Ratio] 0 % 0-5 [facility] MCHC Auto (RBC) [Mass/Vol]Or dered By: Dr. Luis on 08-17-2022 MCHC (RBC) [Mass/Vol] 32.3 g/dL 32-[address] [facility] No Panel InformationOrdered By: Dimple Luis on 08-17-2022 Estimated Creatinine Clearance Calc 109.71 ml/min [facility] Estimated GFR (MDRD) Amer 128 mL/min >60 [facility] Comment on above: GFR Calc Estimated GFR (MDRD) Non-Af Amer 106 mL/min >60 [facility] Comment on above: Non- GFR Calc Troponin I High Sensitivity 3 pg/mL 3.0-54.0 [facility] Comment on above: Please Note: New Chantal t Units and Gender Specific Reference Ranges. For more information see Policy Stat Procedure [place] High Sensitivity Troponin (TNIH) and attachments. No Panel InformationOrdered By: Dr. Luis on 08-17-2022 27.6 pg 27.0-32.0 [facility] 12.8 % 11.6-14.6 [facility] 39.5 fl 35.1-43.9 [facility] 0.400 % 0.0-0.9 [facility] 0 % 0-5 [facility] 106 mL/min >60 [facility] 128 mL/min >60 [facility] 109.71 ml/min [facility] 13.4 RATIO 10-20 [facility] 3 pg/mL 3.0-54.0 [facility] 27.0 mmol/L 21.0-32.0 [facility] Platelets bldOrdered By: Dr. Luis on 08-17-2022 Platelets (Bld) [#/Vol] 175 10*3/uL 150-450 [facility] Serum or plasma calcium mg urement (mass/volume)Ordered By: Dr. Luis on 08-17-2022 Calcium [Mass/Vol] 8.7 mg/dL 8.5-10.[address] [facility] Serum or plasma creatinine m easurement (mass/volume)Ordered By: Dr. Luis on 08-17-2022 Creatinine [Mass/Vol] 0.67 mg/dL 0.55-1.[address] [facility] Comment on above: The validity of the calculated GFR & GFRAA in patients over 70 years has not been determined. Clinical correlation is essential. Serum or plasma urea nitroge n measurement (mass/volume)Ordered By: Dr. Luis on 08-17-2022 Urea nitrogen [Mass/Vol] 9 mg/dL 7-18 [facility] Thin prep Papanicolaou smear with manual screeningOrdered By: Dr. Luis on 08-17-2022 Thin prep Papanicolaou smear with manual screening 5 5-15 [facility] Absolute lymphocyte countOrd ered By: Royce Bangura on 07-17-2022 Lymphocytes Auto (Unsp spec) [#/Vol] 1.50 10*3/uL 0.83-4.51 [facility] Basophil percentageOrdered B y: Royce Bangura on 07-17-2022 Basophil percentage 123 mg/dL 74-106 [facility] Basophil percentage 6.8 g/dL 6.4-8.2 [facility] Basophil percentage 0.40 mg/dL 0.20-1.00 [facility] Basophil percentage 140 mmol/L 136-145 [facility] Basophil percentage 3.4 mmol/L 3.5-5.1 [facility] Basophil percentage 104 mmol/L 98-107 [facility] Basophils (Bld) [#/Vol] 4.1 10*3/uL 4.4-11.0 [facility] Basophils (Bld) [#/Vol] 2.1 10*3/uL 2.0-7.7 [facility] Basophils/100 WBC (Bld) 50.5 % 47-70 [facility] Basophils/100 WBC (Bld) 3.2 % 0-5 [facility] Basophils/100 WBC (Bld) 0.7 % 0-1 [facility] Blood erythrocytes count (nu mber/volume)Ordered By: Royce Bangura on 07-17-2022 RBC (Bld) [#/Vol] 4.75 10*6/uL 4.2-5.4 [facility] Blood hemoglobin measurement (mass/volume)Ordered By: Royce Bangura on 07-17-2022 Hemoglobin (Bld) [Mass/Vol] 13.1 g/dL 12.0-15.0 [facility] Blood lymphocytes/100 leukoc ytesOrdered By: Royce Bangura on 07-17-2022 Lymphocytes/100 WBC (Bld) 36.8 % 19-41 [facility] Blood monocytes/100 leukocyt esOrdered By: Royce Bangura on 07-17-2022 Monocytes/100 WBC (Bld) 8.6 % 0-10 [facility] Blood platelet mean volumeOr dered By: Royce Bangura on 07-17-2022 Platelet mean volume (Bld) [Entitic vol] 11.2 fL 6.2-12.0 [facility] Determination of erythrocyte mean corpuscular volume (MCV)Ordered By: Royce Bangura on 07-17-2022 MCV (RBC) [Entitic vol] 86.3 fL 81-99 [facility] Hematocrit Auto (Bld) [Volum e fraction]Ordered By: Royce Bangura on 07-17-2022 Hematocrit (Bld) [Volume fraction] 41.0 % 37-47 [facility] MCHC Auto (RBC) [Mass/Vol]Or dered By: Royce Bangura on 07-17-2022 MCHC (RBC) [Mass/Vol] 32.0 g/dL 32-[address] [facility] No Panel InformationOrdered By: Royce Bangura on 07-17-2022 27.6 pg 27.0-32.0 [facility] 13.9 % 11.6-14.6 [facility] 43.2 fl 35.1-43.9 [facility] 0.200 % 0.0-0.9 [facility] 0 % 0-5 [facility] 94 mL/min >60 [facility] 113 mL/min >60 [facility] 98.01 ml/min [facility] 9.3 RATIO 10-20 [facility] 3.2 g/dL 2.2-4.2 [facility] 120 U/L 73-393 [facility] < 3 pg/mL 3.0-54.0 [facility] 60 U/L 45-117 [facility] 24 U/L 13-56 [facility] 29.0 mmol/L 21.0-32.0 [facility] 1.37 uIU/mL 0.358-3.74 [facility] Platelets bldOrdered By: Lita Bangura on 07-17-2022 Platelets (Bld) [#/Vol] 160 10*3/uL 150-450 [facility] Serum or plasma albumin mg urement (mass/volume)Ordered By: Royce Bangura on 07-17-2022 Albumin [Mass/Vol] 3.6 g/dL 3.2-5.[address] [facility] Serum or plasma albumin/glob ulin mass ratioOrdered By: Royce Bangura on 07-17-2022 Albumin/Globulin [Mass ratio] 1.1 {ratio} 0.9-2.4 [facility] Serum or plasma calcium mg urement (mass/volume)Ordered By: Royce Bangura on 07-17-2022 Calcium [Mass/Vol] 9.1 mg/dL 8.5-10.[address] [facility] Serum or plasma creatinine m easurement (mass/volume)Ordered By: Royce Bangura on 07-17-2022 Creatinine [Mass/Vol] 0.75 mg/dL 0.55-1.[address] [facility] Serum or plasma urea nitroge n measurement (mass/volume)Ordered By: Royce Bangura on 07-17-2022 Urea nitrogen [Mass/Vol] 7 mg/dL 7-18 [facility] Thin prep Papanicolaou smear with manual screeningOrdered By: Royce Bangura on 07-17-2022 Thin prep Papanicolaou smear with manual screening 10 U/L 15-37 [facility] Thin prep Papanicolaou smear with manual screening 7 5-15 [facility] Absolute lymphocyte countOrd ered By: Rea Poon on 07-14-2022 Lymphocytes Auto (Unsp spec) [#/Vol] 1.51 10*3/uL 0.83-4.51 [facility] Atypical perinuclear antineu trophil cytoplasmic antibodies measurementOrdered By: Rea Poon on 07-14-2022 Neutrophil cytoplasmic Ab.perinuclear.atypical IF (S) [Titer] <1:20 titer Neg:<1:20 [facility] Basophil percentageOrdered B y: Rea Poon on 07-14-2022 Basophil percentage 118 mg/dL 74-106 [facility] Basophil percentage 7.2 g/dL 6.4-8.2 [facility] Basophil percentage 0.40 mg/dL 0.20-1.00 [facility] Basophil percentage 138 mmol/L 136-145 [facility] Basophil percentage 3.4 mmol/L 3.5-5.1 [facility] Basophil percentage 103 mmol/L 98-107 [facility] Basophil percentage < 0.2 AI 0.0-0.9 [facility] Basophils (Bld) [#/Vol] 6.2 10*3/uL 4.4-11.0 [facility] Basophils (Bld) [#/Vol] 3.9 10*3/uL 2.0-7.7 [facility] Basophils/100 WBC (Bld) 63.9 % 47-70 [facility] Basophils/100 WBC (Bld) 2.9 % 0-5 [facility] Basophils/100 WBC (Bld) 0.5 % 0-1 [facility] Blood erythrocytes count (nu mber/volume)Ordered By: Rea Poon on 07-14-2022 RBC (Bld) [#/Vol] 4.95 10*6/uL 4.2-5.4 [facility] Blood hemoglobin measurement (mass/volume)Ordered By: Rea Poon on 07-14-2022 Hemoglobin (Bld) [Mass/Vol] 13.7 g/dL 12.0-15.0 [facility] Blood lymphocytes/100 leukoc ytesOrdered By: Rea Poon on 07-14-2022 Lymphocytes/100 WBC (Bld) 24.5 % 19-41 [facility] Blood monocytes/100 leukocyt esOrdered By: Rea Poon on 07-14-2022 Monocytes/100 WBC (Bld) 7.9 % 0-10 [facility] Blood platelet mean volumeOr dered By: Rea Poon on 07-14-2022 Platelet mean volume (Bld) [Entitic vol] 11.2 fL 6.2-12.0 [facility] Determination of erythrocyte mean corpuscular volume (MCV)Ordered By: Rea Poon on 07-14-2022 MCV (RBC) [Entitic vol] 86.5 fL 81-99 [facility] Erythrocyte sedimentation ra teOrdered By: Rea Poon on 07-14-2022 ESR (Bld) [Velocity] 2 mm/h 0-30 [facility] Hematocrit Auto (Bld) [Volum e fraction]Ordered By: Rea Poon on 07-14-2022 Hematocrit (Bld) [Volume fraction] 42.8 % 37-47 [facility] MCHC Auto (RBC) [Mass/Vol]Or dered By: Rea Poon on 07-14-2022 MCHC (RBC) [Mass/Vol] 32.0 g/dL 32-[address] [facility] No Panel InformationOrdered By: Rea Poon on 07-14-2022 <2 U/mL 0-5 [facility] 27.7 pg 27.0-32.0 [facility] 14.3 % 11.6-14.6 [facility] 44.9 fl 35.1-43.9 [facility] 0.300 % 0.0-0.9 [facility] 0 % 0-5 [facility] 83 mL/min >60 [facility] 100 mL/min >60 [facility] 7.2 RATIO 10-20 [facility] 3.5 g/dL 2.2-4.2 [facility] 60 U/L 45-117 [facility] 25 U/L 13-56 [facility] 30.0 mmol/L 21.0-32.0 [facility] 0.3 AI 0.0-0.9 [facility] <0.2 AI 0.0-0.9 [facility] Negative Negative [facility] Platelets bldOrdered By: Eleanor Poon on 07-14-2022 Platelets (Bld) [#/Vol] 180 10*3/uL 150-450 [facility] Serum DNA double strand anti body assay (units/volume)Ordered By: Rea Poon on 07-14-2022 DNA double strand Ab Qn (S) [IU]/mL 0-9 [facility] Serum IgA measurement (units /volume)Ordered By: Rea Poon on 07-14-2022 IgA Qn (S) 19 mg/dL 87-352 [facility] Serum Alise-1 antibody assay (u nits/volume)Ordered By: Rea Poon on 07-14-2022 Alise-1 extractable nuclear Ab Qn (S) <0.2 AI 0.0-0.9 [facility] Serum Scl-70 extractable nuc lear antibody assay (units/volume)Ordered By: Rea Poon on 07-14-2022 SCL-70 extractable nuclear Ab Qn (S) <0.2 AI 0.0-0.9 [facility] Serum Freedman extractable nucl ear antibody detectionOrdered By: Rea Poon on 07-14-2022 Freedman extractable nuclear Ab Ql (S) <0.2 AI 0.0-0.9 [facility] Serum classic neutrophil cyt oplasmic antibody assay (units/volume)Ordered By: Rea Poon on 07-14-2022 Neutrophil cytoplasmic Ab.classic Qn (S) <1:20 titer Neg:<1:20 [facility] Serum or plasma C reactive p rotein measurement (mass/volume)Ordered By: Rea Poon on 07-14-2022 CRP [Mass/Vol] mg/L 0.0-3.0 [facility] Serum or plasma albumin mg urement (mass/volume)Ordered By: Rea Poon on 07-14-2022 Albumin [Mass/Vol] 3.7 g/dL 3.2-5.[address] [facility] Serum or plasma albumin/glob ulin mass ratioOrdered By: Rea Poon on 07-14-2022 Albumin/Globulin [Mass ratio] 1.1 {ratio} 0.9-2.4 [facility] Serum or plasma calcium mg urement (mass/volume)Ordered By: Rea Poon on 07-14-2022 Calcium [Mass/Vol] 9.2 mg/dL 8.5-10.[address] [facility] Serum or plasma creatinine m easurement (mass/volume)Ordered By: Rea Poon on 07-14-2022 Creatinine [Mass/Vol] 0.83 mg/dL 0.55-1.[address] [facility] Serum or plasma urea nitroge n measurement (mass/volume)Ordered By: Rea Poon on 07-14-2022 Urea nitrogen [Mass/Vol] 6 mg/dL 7-18 [facility] Serum perinuclear neutrophil cytoplasmic antibody titer by immunofluorescenceOrdered By: Rea Poon on 07-14-2022 Neutrophil cytoplasmic Ab.perinuclear IF (S) [Titer] <1:20 titer Neg:<1:20 [facility] Serum tissue transglutaminas e IgA antibody assay (units/volume)Ordered By: Rea Poon on 07-14-2022 tTG IgA Qn (S) <2 U/mL 0-3 [facility] Thin prep Papanicolaou smear with manual screeningOrdered By: Rea Poon on 07-14-2022 Thin prep Papanicolaou smear with manual screening 15 U/L 15-37 [facility] Thin prep Papanicolaou smear with manual screening 5 5-15 [facility] BASIC METABOLIC PANELon 06-22 Anion gap [Moles/Vol] 11 mmol/L Normal 10 - 20 [facility] Comment on above: Performed By: #### B MP #### [address] [address] Calcium [Mass/Vol] 9.1 mg/dL Normal 8.6 - 10.3 [facility] Comment on above: Performed By: #### B MP #### [address] [address] Chloride [Moles/Vol] 103 mmol/L Normal 98 - 107 [facility] Comment on above: Performed By: #### B MP #### [address] [address] Creatinine [Mass/Vol] 0.72 mg/dL Normal 0.50 - 1.05 [facility] Comment on above: Performed By: #### B MP #### [address] [address] eGFR FEMALE >90 Normal >90 [facility] Comment on above: Result Comment: CALC ULATIONS OF ESTIMATED GFR ARE PERFORMED USING THE 2020 CKD-EPI STUDY REFIT EQUATION WITHOUT THE RACE VARIABLE FOR THE IDMS-TRACEABLE CREATININE METHODS. https://jasn.asnjournals.org/content/early/ASN.2020 133414 Performed By: #### B MP #### [address] [address] Glucose [Mass/Vol] 137 mg/dL High 74 - 99 [facility] Comment on above: Performed By: #### B MP #### [address] [address] HCO3 (Bld) [Moles/Vol] 26 mmol/L Normal 21 - 32 [facility] Comment on above: Performed By: #### B MP #### [address] [address] Potassium [Moles/Vol] 3.9 mmol/L Normal 3.5 - 5.3 [facility] Comment on above: Performed By: #### B MP #### [address] [address] Sodium [Moles/Vol] 136 mmol/L Normal 136 - 145 [facility] Comment on above: Performed By: #### B MP #### [address] [address] Urea nitrogen [Mass/Vol] 13 mg/dL Normal 6 - 23 [facility] Comment on above: Performed By: #### B MP #### [address] [address] CBC AND DIFFERENTIALon 07-05 % AUTOMATED IMMATURE GRAN 0.5 % Normal 0.0 - 0.9 [facility] Comment on above: Result Comment: Lyssa ture Granulocyte Count (IG) includes promyelocytes, myelocytes and metamyelocytes but does not include bands. Percent differential counts (%) should be interpreted in the context of the absolute cell counts (cells/L). Performed By: #### C BCDF #### [address] [address] Basophils (Bld) [#/Vol] 0.02 10*3/uL Normal 0.00 - 0.[address] [facility] Comment on above: Performed By: #### C BCDF #### [address] [address] Basophils/100 WBC (Bld) 0.3 % Normal 0.0 - 2.0 [facility] Comment on above: Performed By: #### C BCDF #### [address] [address] Eosinophils (Bld) [#/Vol] 0.01 10*3/uL Normal 0.00 - 0.70 [facility] Comment on above: Performed By: #### C BCDF #### [address] [address] Eosinophils/100 WBC (Bld) 0.2 % Normal 0.0 - 6.0 [facility] Comment on above: Performed By: #### C BCDF #### [address] [address] Erythrocyte distribution width (RBC) [Ratio] 14.4 % Normal 11.5 - 14.5 [facility] Comment on above: Performed By: #### C BCDF #### [address] [address] Hematocrit (Bld) [Volume fraction] 41.8 % Normal 36.0 - 46.0 [facility] Comment on above: Performed By: #### C BCDF #### [address] [address] Hemoglobin (Bld) [Mass/Vol] 13.6 g/dL Normal 12.0 - 16.0 [facility] Comment on above: Performed By: #### C BCDF #### [address] [address] Lymphocytes (Bld) [#/Vol] 0.91 10*3/uL Low 1.20 - 4.80 [facility] Comment on above: Performed By: #### C BCDF #### [address] [address] Lymphocytes/100 WBC (Bld) 14.2 % Normal 13.0 - 44.0 [facility] Comment on above: Performed By: #### C BCDF #### [address] [address] MCHC (RBC) [Mass/Vol] 32.5 g/dL Normal 32.0 - 36.0 [facility] Comment on above: Performed By: #### C BCDF #### [address] [address] MCV (RBC) [Entitic vol] 84 fL Normal 80 - 100 [facility] Comment on above: Performed By: #### C BCDF #### [address] [address] Monocytes (Bld) [#/Vol] 0.28 10*3/uL Normal 0.10 - 1.[address] [facility] Comment on above: Performed By: #### C BCDF #### [address] [address] Monocytes/100 WBC (Bld) 4.4 % Normal 2.0 - 10.0 [facility] Comment on above: Performed By: #### C BCDF #### [address] [address] Neutrophils (Bld) [#/Vol] 5.17 10*3/uL Normal 1.20 - 7.70 [facility] Comment on above: Result Comment: Perc ent differential counts (%) should be interpreted in the context of the absolute cell counts (cells/L). Performed By: #### C BCDF #### [address] [address] Neutrophils/100 WBC (Bld) 80.4 % Normal 40.0 - 80.0 [facility] Comment on above: Performed By: #### C BCDF #### [address] [address] Platelets (Bld) [#/Vol] 212 10*3/uL Normal 150 - 450 [facility] Comment on above: Performed By: #### C BCDF #### [address] [address] RBC 5.00 x10E12/L Normal 4.00 - 5.20 [facility] Comment on above: Performed By: #### C BCDF #### [address] [address] WBC (Bld) [#/Vol] 6.4 10*3/uL Normal 4.4 - 11.3 [facility] Comment on above: Performed By: #### C BCDF #### [address] [address] HEPATIC FUNCTION PANELon Albumin [Mass/Vol] 4.5 g/dL Normal 3.4 - 5.0 [facility] Comment on above: Performed By: #### H EPFP #### [address] [address] ALP [Catalytic activity/Vol] 61 U/L Normal 33 - 110 [facility] Comment on above: Performed By: #### H EPFP #### [address] [address] ALT [Catalytic activity/Vol] 13 U/L Normal 7 - 45 [facility] Comment on above: Result Comment: Kamilla ents treated with Sulfasalazine may generate falsely decreased results for ALT. Performed By: #### H EPFP #### [address] [address] AST [Catalytic activity/Vol] 11 U/L Normal 9 - 39 [facility] Comment on above: Performed By: #### H EPFP #### [address] [address] Bilirubin [Mass/Vol] 0.3 mg/dL Normal 0.0 - 1.2 [facility] Comment on above: Performed By: #### H EPFP #### [address] [address] Bilirubin.indirect [Mass/Vol] 0.1 mg/dL Normal 0.0 - 0.3 [facility] Comment on above: Performed By: #### H EPFP #### [address] [address] Protein [Mass/Vol] 7.2 g/dL Normal 6.4 - 8.2 [facility] Comment on above: Performed By: #### H EPFP #### [address] [address] LACTATEon 07-05-2022 Lactate [Moles/Vol] 1.2 mmol/L Normal 0.4 - 2.0 [facility] Comment on above: Result Comment: Sandra puncture immediately after or during the administration of Metamizole may lead to falsely low results. Testing should be performed immediately prior to Metamizole dosing. Performed By: #### L ACT #### [address] [address] LIPASEon 07-05-2022 Lipase [Catalytic activity/Vol] 15 U/L Normal 9 - 82 [facility] Comment on above: Result Comment: Sandra puncture immediately after or during the administration of Metamizole may lead to falsely low results. Testing should be performed immediately prior to Metamizole dosing. J-dgbrst-e-benzoquinone imine (metabolite of Acetaminophen) will generate erroneously low results in samples for patients that have taken toxic doses of acetaminophen. Performed By: #### L IPAS #### [address] [address] Provider Note - ED v3on 06-22 Provider Note - ED v3 Provider Note: Chart Review: ED NOTES ED NOTES: HPI: Patient is a 37-year-old female chief complaint of right mid abdominal pain which she states started just a few hours ago. No vomiting or diarrhea. She does have a known right ovarian cyst. She has had a hysterectomy and left oophorectomy. States she has a history of an abscess following those procedures. They were done at [place]. Patient gets most of her medical care at [facility]. States she was in the area here when her symptoms started. No urinary symptoms. No change in bowel bladder habits. Physical Exam I have reviewed the triage vital signs. Const: Well nourished, well developed, appears stated age, no acute distress Eyes: PERRL, EOM intact, no conjunctival injection, vision grossly normal HENT: Neck supple without meningismus , Moist mucous membranes, no pharyengeal swelling or exudate CV: Regular rate and rhythm, Warm, well-perfused extremities. Chest non tender RESP: Lungs clear bilaterally, Unlabored respiratory effort GI: soft, patient indicates tenderness right upper quadrant right lower quadrant right lower quadrant left lower quadrant. No masses : MSK: No gross deformities appreciated Back: Non tender, no pain with ROM Skin: Warm, dry. 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 Sensation and motor function of extremities grossly intact. Psych: Appropriate mood and affect. I have reviewed and confirmed nurses/medics notes for patient past, social and family history. Portions of this note were dictated by speech recognition. An attempt at proof reading was made to minimize errors. Minor errors in corporate communications associate may be present. 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 Triage Information: Most recent Vital Sign Value Date Temp (F): 98 07-04-2022 22:09 Temp (C): 36.6 07-04-2022 22:09 Heart Rate (beats/min): 82 07-04-2022 22:09 Respirations (breaths/min): 18 07-04-2022 22:09 SpO2 (%): 98 07-04-2022 22:09 BP Systolic (mm Hg): 124 07-04-2022 22:09 BP Diastolic (mm Hg): 79 07-04-2022 22:09 PAST MEDICAL HISTORY ALLERGIES/INTOLERANCES: Allergy Status Unknown HEALTH HISTORY: No documented data. OUTPATIENT MEDICATIONS: Home Medications Review Status for Reconciliation: Incomplete Med Status: Incomplete Medication History No documented data. SIGNIFICANT EVENTS: Past Surgical History Description:hysterectom y CRITICAL CARE RESULTS: Recent Lab Results: I have reviewed these laboratory results: Urinalysis with Culture if Indicated 04-Jul-2022 23:30:00 ResultValue Color, Urine Straw Reference Range: STRAW,YELLOW Appearance, Urine CLEAR Specific [place], Urine 1.012 pH, Urine 6.0 Protein, Urine NEGATIVE Glucose, Urine NEGATIVE Blood, Urine NEGATIVE Ketones, Urine NEGATIVE Bilirubin, Urine NEGATIVE Urobilinogen, Urine <2.0 Nitrite, Urine Negative Leukocyte Esterase, Urine NEGATIVE Hepatic Function Panel 04-Jul-2022 22:39:00 ResultValue Aspartate Transaminase, Serum 11 ALB 4.5 T Bili 0.3 Bilirubin, Serum Direct - Conjugated 0.1 ALKP 61 Alanine Aminotransferase, Serum 13 T Pro 7.2 Complete Blood Count + Differential 04-Jul-2022 22:39:00 ResultValue White Blood Cell Count 6.4 Red Blood Cell Count 5.00 HGB 13.6 HCT 41.8 MCV 84 MCHC 32.5 PLT 212 RDW-CV 14.4 Neutrophil % 80.4 Immature Granulocytes % 0.5 Lymphocyte % 14.2 Monocyte % 4.4 Eosinophil % 0.2 Basophil % 0.3 Neutrophil Count 5.17 Lymphocyte Count 0.91 L Monocyte Count 0.28 Eosinophil Count 0.01 Basophil Count 0.02 Basic Metabolic Panel 04-Jul-2022 22:39:00 ResultValue Glucose, Serum 137 H NA 136 K 3.9 CL 103 Bicarbonate, Serum 26 Anion Gap, Serum 11 BUN 13 CREAT 0.72 GFR Female >90 Calcium, Serum 9.1 Lactate, Level 04-Jul-2022 22:39:00 ResultValue Lactate, Level 1.2 Lipase, Serum 04-Jul-2022 22:39:00 ResultValue Lipase, Serum 15 VITAL SIGNS: T PRBP SpO2O2(LPM) %FiO2 Method 04-Jul-2022 23:00:[id number] 95 room air, no respiratory support 04-Jul-2022 22:35:[id number]/79 96 room air, no respiratory support 04-Jul-2022 22:09:[id number]/ 98 room air, no respiratory support 04-Jul-2022 22:05:[id number]/ 98 room air, no respiratory support [facility] MDM/ED COURSE: Patient is nontoxic appearing. I did review on the [facility] network. She had a CT abdomen pelvis on June 10. She had an ultrasound of the pelvis also at [place] on June 22 and another ultrasound at [facility] the next day on the second. I also reviewed the OARRS report which is somewhat extensive. Reassessment patient resting comfortab (more content not included)... Normal [facility] Risk Screen - Adult Emergenc yon 07-05-2022 Risk Screen - Adult Emergency Preferred Language: Preferred Language: Preferred Language for Discussing Health Care (patient/designee)Cristina marie Patient Preferred Pharmacy: Patient Preferred Pharmacy Statement: I have reviewed and updated the patient's preferred pharmacy selection for today's visit. Advanced Directives: Advance Directive/DNRno Family Violence Adult: Abuse Screen: Are you or have you been threatened or abused physically, emotionally, or sexually by anyoneno Learning Assessment (Patient): Learning Assessment (Patient): Patient is Able to be Assessed for Learningyes Factors Influencing Readiness to Learnacuteness of illness Factors that Impact Ability to Learnnone Devices/Methods Used to Communicatenone Learning Preferenceswritten material; verbal instruction Cultural Considerationsnone Developmental Considerationsnone Yazidi Considerationsnone Learning Assessment (Other Learner): Learning Assessment (Other Learner): Other learner availableyes... Learnerspouse Factors Influencing Readiness to Learnacuteness of illness Factors that Impact Ability to Learnnone Devices/Methods Used to Communicatenone Learning Preferencesverbal instruction, written material Cultural Considerationsnone Developmental Considerationsnone Yazidi Considerationsnone Pressure Injury/TB/Substance: Pressure Injury: Do you have a coughno Smoking Statusmoderate user (uses 11-30 cig/day, OR 0.5-1.5 ppd, OR 2-3 cans/pouches loose leaf tobacco per week, OR 0.5-1.5 vape pods per day) Tobacco Cessation Education (provide if tobacco use within the last 12 mos) patient declined Alcohol Useoccasionally Drug Usedenies Admission Risk Screen: Significant IndicatorsComplete CAGE: CAGE: Is this an injured patient at a Trauma Center ([facility]/[place]): no Electronic Signatures: Cristiana Golden (RN) (Signed 04-Jul-2022 22:13) Authored: Preferred Language, Patient Preferred Pharmacy, Advanced Directives, Family Violence Adult, Learning Assessment (Patient), Learning Assessment (Other Learner), Pressure Injury/TB/Substance, Pressure Injury, CAGE Last Updated: 04-Jul-2022 22:13 by Cristiana Golden (RN) [facility] Triage - EDon 07-05-2022 Triage - ED Quick Triage: Are You no Have You Given In The Last 6 Weeksno Are You Currently Breastfeedingno Chart Review: ARRIVAL INFORMATION Mode of Arrival: private vehicle CHIEF COMPLAINT LANA RIVERA is a Female patient with a chief complaint of abdominal pain (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 Triage Date/Time: 04-Jul-2022 22:05 ERNESTO: 3 Pain Rating (0-10): 6 = Moderate Vital Signs: Temperature: 98.0F ( 36.6C) taken oral Blood Pressure: 124/79 Mean: Heart Rate: 82 Respiratory Rate: 18 Pulse Oximetry: 98% on room air, no respiratory support. Height: 5 feet 6.00 inches. 167.6 CM Weight: 224.8 pounds. Calculated 102.0 kg. (stated) Calculated BMI (kg/m2): 36.312 Calculated BSA (m2) 2.18 Guero Coma Scale: Best Eye Response: (E4) spontaneous Best Motor Response: (M6) obeys commands Best Verbal Response: (V5) oriented Charlotte Score: 15 CLINICAL CODER History: hysterectomy Patient has homicidal thoughts: no Risk Screens Suicide Risk Screen In the Past Month: Have you wished you were or wished you could go to sleep and not wake up no In the Past Month: Have you had any actual thoughts of killing yourself no In Your Lifetime: Have you ever done anything, started to do anything, or prepared to do anything to end your life no Minaya Fall Scale Screening Has the patient fallen before (or is the patient in the ED as a result of a fall) has not had a fall Does the patient have an impaired gait does not have impaired gait Is the patient cognitively impaired not cognitively impaired Interventions: Minaya Fall Interventions: LOW INTERVENTIONS: *patient oriented to surroundings and call system, * patient/family falls education completed and documented, *patients fall status communicated during bedside handoff, *whiteboard updated, *mode of toileting discussed with patient, *bed in low position with brakes locked, *call light in reach, * non-skid footwear TRAVEL HISTORY Travel History Coronavirus Screening: no exposure or symptoms Travel Exposure History: NO travel to International locations in the past 30 days PAIN Pain Scale Used: JARRET Pain Rating (0-10): 6 = Moderate Past Medical History: Past Medical History Reviewedyes hysterectomy: Past Surgical History, Active Electronic Signatures: Cristiana Golden (RN) (Signed 04-Jul-2022 22:12) Entered: Risk Screens, Pain, Travel History, Chart Review, Scores, Past Medical History Authored: Quick Triage, Risk Screens, Pain, Travel History, Chart Review, Scores, Past Medical History Last Updated: 04-Jul-2022 22:12 by Cristiana Golden (SHELBY) Normal [facility] URINALYSIS WITH CULTURE IF I NDICATEDon 07-05-2022 Appearance (U) CLEAR Normal CLEAR [facility] Comment on above: Performed By: #### U ARFX #### [place] [address] Bilirubin Ql (U) Negative Normal NEGATIVE [facility] Comment on above: Performed By: #### U ARFX #### [place] [address] Color (U) Straw Normal STRAW,YELLOW [facility] Comment on above: Performed By: #### U ARFX #### [place] [id number] Glucose Ql (U) Negative Normal NEGATIVE [facility] Comment on above: Performed By: #### U ARFX #### [address] [address] Hemoglobin Ql (U) Negative Normal NEGATIVE [facility] Comment on above: Performed By: #### U ARFX #### [place] [address] Ketones Ql (U) Negative Normal NEGATIVE [facility] Comment on above: Performed By: #### U ARFX #### [place] [id number] Leukocyte esterase Test strip Ql (U) Negative Normal NEGATIVE [facility] Comment on above: Performed By: #### U ARFX #### [place] [id number] Nitrite Ql (U) Negative Normal NEGATIVE [facility] Comment on above: Performed By: #### U ARFX #### [place] [id number] pH (U) 6.0 [pH] Normal 5.0 - 8.0 [facility] Comment on above: Performed By: #### U ARFX #### [address] [address] Protein Ql (U) Negative Normal NEGATIVE [facility] Comment on above: Performed By: #### U ARFX #### [place] [address] Specific gravity (U) [Rel density] 1.012 Normal 1.005 - 1.035 [facility] Comment on above: Performed By: #### U ARFX #### [address] [address] Urobilinogen (U) [Mass/Vol] mg/dL Normal 0.0 - 1.9 [facility] Comment on above: Performed By: #### U ARFX #### [place] [id number] No Panel Informationon 06-29 Negative [facility] Negative [facility] US PELVIC TRANSABDOMINAL AND TRANSVAGINAL WITH COLOR FLOWon 06-23-2022 US PELVIC TRANSABDOMINAL AND TRANSVAGINAL WITH COLOR FLOW EXAMINATION: US PELVIC TRANSABDOMINAL AND TRANSVAGINAL WITH COLOR FLOW HISTORY: ORDERING SYSTEM PROVIDED HISTORY: r/o ovarian torsion, TECHNOLOGIST PROVIDED HISTORY: Illness/Other Reason for exam: r/o ovarian torsion Cancer History: unknown Surgery, RadiationHistory: unknown Encounter Type: Initial Additional signs and symptoms: none ORDERING SYSTEM PROVIDED DIAGNOSIS CODES: COMPARISON: CT abdomen and pelvis-February 24, 2022. TECHNIQUE: Transabdominal and endovaginal ultrasound of the pelvis with grayscale and Doppler interrogation. FINDINGS: The uterus and left ovary were not visualized. The right ovary measured 4.94 x 4.90 x 4.63 cm contains a mildly complex 4.00 cm hypoechoic nodule. The right ovary has normal intrinsic arterial and venous waveforms for which the arterial resistive index is 0.54. No free fluid is seen within the pelvis. IMPRESSION: 1. A complex 4 cm hypoechoic right ovarian nodule may represent a hemorrhagic cyst or endometrioma. A follow-up pelvic ultrasound in 6 or 10 weeks is suggested to document resolution. 2. No evidence for right ovarian torsion. 3. Uterus and left ovary not visualized. Recommend correlation with the patient's surgical history. DPR/trn Workstation ID: [id number] Dictated by: BELKYS GOSS on MonJun 23, 2022 10:38:10 PM EST Transcribed by: CATINA NIETO on MonJun 23, 2022 10:42:20 PM EST Finalized by: BELKYS GOSS on MonJun 23, 2022 10:43:29 PM EST Normal [facility] Comment on above: Order Comment: Injur y/Trauma or Illness?:Illness/Other How long have you had these symptoms (acute/chronic)?:Acute Reason for exam?:r/o ovarian torsion History of cancer?:unknown Surgeries, chemotherapy, or radiation?:unknown Type of Exam?:Initial Additional signs and symptoms?:none Absolute lymphocyte countOrd ered By: Dr. Jacobs on 06-10-2022 Lymphocytes Auto (Unsp spec) [#/Vol] 0.96 10*3/uL 0.83-4.51 [facility] Basophil percentageOrdered B y: Dr. Jacobs on 06-10-2022 Basophil percentage 108 mg/dL 74-106 [facility] Basophil percentage 139 mmol/L 136-145 [facility] Basophil percentage 3.9 mmol/L 3.5-5.1 [facility] Basophil percentage 106 mmol/L 98-107 [facility] Basophils (Bld) [#/Vol] 3.6 10*3/uL 4.4-11.0 [facility] Basophils (Bld) [#/Vol] 2.1 10*3/uL 2.0-7.7 [facility] Basophils/100 WBC (Bld) 56.4 % 47-70 [facility] Basophils/100 WBC (Bld) 8.0 % 0-5 [facility] Basophils/100 WBC (Bld) 0.6 % 0-1 [facility] Blood erythrocytes count (nu mber/volume)Ordered By: Dr. Jacobs on 01-20-2023 RBC (Bld) [#/Vol] 4.73 10*6/uL 4.2-5.4 [facility] Blood hemoglobin measurement (mass/volume)Ordered By: Dr. Jacobs on 06-10-2022 Hemoglobin (Bld) [Mass/Vol] 12.9 g/dL 12.0-15.0 [facility] Blood lymphocytes/100 leukoc ytesOrdered By: Dr. Jacobs on 06-10-2022 Lymphocytes/100 WBC (Bld) 26.4 % 19-41 [facility] Blood monocytes/100 leukocyt esOrdered By: Dr. Jacobs on 06-10-2022 Monocytes/100 WBC (Bld) 8.3 % 0-10 [facility] Blood platelet mean volumeOr dered By: Dr. Jacobs on 06-10-2022 Platelet mean volume (Bld) [Entitic vol] 10.8 fL 6.2-12.0 [facility] Determination of erythrocyte mean corpuscular volume (MCV)Ordered By: Dr. Jacobs on 06-10-2022 MCV (RBC) [Entitic vol] 85.4 fL 81-99 [facility] Hematocrit Auto (Bld) [Volum e fraction]Ordered By: Dr. Jacobs on 06-10-2022 Hematocrit (Bld) [Volume fraction] 40.4 % 37-47 [facility] MCHC Auto (RBC) [Mass/Vol]Or dered By: Dr. Jacobs on 06-10-2022 MCHC (RBC) [Mass/Vol] 31.9 g/dL 32-[address] [facility] No Panel InformationOrdered By: Dr. Jacobs on 06-10-2022 27.3 pg 27.0-32.0 [facility] 14.9 % 11.6-14.6 [facility] 46.7 fl 35.1-43.9 [facility] 0.300 % 0.0-0.9 [facility] 0 % 0-5 [facility] 107 mL/min >60 [facility] 129 mL/min >60 [facility] 109.71 ml/min [facility] 9.0 RATIO 10-20 [facility] 26.0 mmol/L 21.0-32.0 [facility] Platelets bldOrdered By: Dr. Jacobs on 06-10-2022 Platelets (Bld) [#/Vol] 166 10*3/uL 150-450 [facility] Serum or plasma calcium mg urement (mass/volume)Ordered By: Dr. Jacobs on 06-10-2022 Calcium [Mass/Vol] 8.3 mg/dL 8.5-10.[address] [facility] Serum or plasma creatinine m easurement (mass/volume)Ordered By: Dr. Jacobs on 06-10-2022 Creatinine [Mass/Vol] 0.67 mg/dL 0.55-1.[address] [facility] Serum or plasma urea nitroge n measurement (mass/volume)Ordered By: Dr. Jacobs on 06-10-2022 Urea nitrogen [Mass/Vol] 6 mg/dL 7-18 [facility] Thin prep Papanicolaou smear with manual screeningOrdered By: Dr. Jacobs on 06-10-2022 Thin prep Papanicolaou smear with manual screening 7 5-15 [facility] No Panel InformationOrdered By: Grace Cho on 05-30-2022 2.1 mg/dL 1.6-2.6 [facility] 1.56 uIU/mL 0.358-3.74 [facility] 17.6 ng/mL [facility] Absolute lymphocyte countOrd ered By: ED PROVIDER on 05-23-2022 Lymphocytes Auto (Unsp spec) [#/Vol] 1.87 10*3/uL 0.83-4.51 [facility] Basophil percentageOrdered B y: Dr. Barajas on 05-23-2022 Basophil percentage 0 SEEN /hpf 0-5 [facility] Basophil percentage 108 mg/dL 74-106 [facility] Basophil percentage 139 mmol/L 136-145 [facility] Basophil percentage 3.7 mmol/L 3.5-5.1 [facility] Basophil percentage 107 mmol/L 98-107 [facility] Basophil percentageOrdered B y: ED PROVIDER on 05-23-2022 Basophils (Bld) [#/Vol] 4.9 10*3/uL 4.4-11.0 [facility] Basophils (Bld) [#/Vol] 2.3 10*3/uL 2.0-7.7 [facility] Basophils/100 WBC (Bld) 0.6 % 0-1 [facility] Basophils/100 WBC (Bld) 46.4 % 47-70 [facility] Basophils/100 WBC (Bld) 4.5 % 0-5 [facility] Basophil percentageon 2022 Chloride [Moles/Vol] 107 mmol/L 98-107 [facility] Work Phone: Eosinophils/100 WBC (Bld) 4.5 % 0-5 [facility] Work Phone: Glucose [Mass/Vol] 108 mg/dL 74-[address] [facility] Work Phone: Comment on above: Fasting Glucose resu lt from 100 to 125 mg/dL suggests IMPAIRED HOMEOSTASIS per A.D.A. criteria. Neutrophils (Bld) [#/Vol] 2.3 10*3/uL 2.0-7.7 [facility] Work Phone: Neutrophils/100 WBC (Bld) 46.4 % 47-70 [facility] Work Phone: [phone] Potassium [Moles/Vol] 3.7 mmol/L 3.5-5.[address] [facility] Work Phone: Sodium [Moles/Vol] 139 mmol/L 136-[address] [facility] Work Phone: [phone] WBC (Bld) [#/Vol] 4.9 10*3/uL 4.4-11.[address] [facility] Work Phone: Bilirubin Test strip Ql (U)O rdered By: Dr. Barajas on 05-23-2022 Bilirubin Ql (U) Negative Negative [facility] Blood erythrocytes count (nu mber/volume)Ordered By: ED PROVIDER on 05-23-2022 RBC (Bld) [#/Vol] 4.62 10*6/uL 4.2-5.4 [facility] Blood hemoglobin measurement (mass/volume)Ordered By: ED PROVIDER on 05-23-2022 Hemoglobin (Bld) [Mass/Vol] 12.9 g/dL 12.0-15.0 [facility] Blood lymphocytes/100 leukoc ytesOrdered By: ED PROVIDER on 05-23-2022 Lymphocytes/100 WBC (Bld) 38.4 % 19-41 [facility] Blood monocytes/100 leukocyt esOrdered By: ED PROVIDER on 05-23-2022 Monocytes/100 WBC (Bld) 9.9 % 0-10 [facility] Blood platelet mean volumeOr dered By: ED PROVIDER on 05-23-2022 Platelet mean volume (Bld) [Entitic vol] 10.8 fL 6.2-12.0 [facility] Determination of erythrocyte mean corpuscular volume (MCV)Ordered By: ED PROVIDER on 05-23-2022 MCV (RBC) [Entitic vol] 85.7 fL 81-99 [facility] Hematocrit Auto (Bld) [Volum e fraction]Ordered By: ED PROVIDER on 05-23-2022 Hematocrit (Bld) [Volume fraction] 39.6 % 37-47 [facility] Ketones Test strip Ql (U)Ord ered By: Dr. Barajas on 05-23-2022 Ketones Ql (U) Negative Negative [facility] Laboratory - Chemistry and C hemistry - challengeon 05-23-2022 CO2 [Moles/Vol] 28.0 mmol/L 21.0-32.0 [facility] Work Phone: Urea nitrogen/Creatinine [Mass ratio] 14.6 mg/mg 10-20 [facility] Work Phone: Laboratory - Hematology and Cell countson 05-23-2022 Erythrocyte distribution width (RBC) [Entitic vol] 49.7 fL 35.1-43.9 [facility] Work Phone: Erythrocyte distribution width (RBC) [Ratio] 15.9 % 11.6-14.6 [facility] Work Phone: [phone] Immature granulocytes/100 WBC (Bld) 0.200 % 0.0-0.9 [facility] Work Phone: Comment on above: IG% - Immature Granu locytes (promyelocytes, myelocytes and metamyelocytes) > 1% indicates that a LEFT SHIFT is Present. MCH (RBC) [Entitic mass] 27.9 pg 27.0-32.0 [facility] Work Phone: Nucleated RBC/100 WBC (Bld) [Ratio] 0 % 0-5 [facility] Work Phone: MCHC Auto (RBC) [Mass/Vol]Or dered By: ED PROVIDER on 05-23-2022 MCHC (RBC) [Mass/Vol] 32.6 g/dL 32-[address] [facility] Mucus LM Ql (Urine sed)Order ed By: Dr. Barajas on 05-23-2022 Mucus Ql (Urine sed) 0 SEEN /hpf [facility] Nitrite Test strip Ql (U)Ord ered By: Dr. Barajas on 05-23-2022 Nitrite Ql (U) Negative Negative [facility] No Panel Informationon 05-23 Estimated Creatinine Clearance Calc 108.10 ml/min [facility] Work Phone: Estimated GFR (MDRD) Amer 126 mL/min >60 [facility] Work Phone: Comment on above: GFR Calc Estimated GFR (MDRD) Non-Af Amer 104 mL/min >60 [facility] Work Phone: Comment on above: Non- GFR Calc No Panel InformationOrdered By: ED PROVIDER on 05-23-2022 27.9 pg 27.0-32.0 [facility] 15.9 % 11.6-14.6 [facility] 49.7 fl 35.1-43.9 [facility] 0.200 % 0.0-0.9 [facility] 0 % 0-5 [facility] No Panel InformationOrdered By: Dr. Barajas on 05-23-2022 104 mL/min >60 [facility] 126 mL/min >60 [facility] 108.10 ml/min [facility] 14.6 RATIO 10-20 [facility] 28.0 mmol/L 21.0-32.0 [facility] Platelets bldOrdered By: ED PROVIDER on 05-23-2022 Platelets (Bld) [#/Vol] 191 10*3/uL 150-450 [facility] Protein Test strip Ql (U)Ord ered By: Dr. Barajas on 05-23-2022 Protein Ql (U) 15 mg/dl Negative [facility] Serum or plasma calcium mg urement (mass/volume)Ordered By: Dr. Barajas on 05-23-2022 Calcium [Mass/Vol] 9.2 mg/dL 8.5-10.[address] [facility] Serum or plasma creatinine m easurement (mass/volume)Ordered By: Dr. Barajas on 05-23-2022 Creatinine [Mass/Vol] 0.68 mg/dL 0.55-1.[address] [facility] Comment on above: The validity of the calculated GFR & GFRAA in patients over 70 years has not been determined. Clinical correlation is essential. Serum or plasma urea nitroge n measurement (mass/volume)Ordered By: Dr. Barajas on 05-23-2022 Urea nitrogen [Mass/Vol] 10 mg/dL 7-18 [facility] Squamous epithelial cells de tection in urine sediment by light microscopyOrdered By: Dr. Barajas on 05-23-2022 Epithelial cells.squamous LM Ql (Urine sed) 5-10 SEEN /hpf 5-10 [facility] Thin prep Papanicolaou smear with manual screeningOrdered By: Dr. Barajas on 05-23-2022 Thin prep Papanicolaou smear with manual screening 4 5-15 [facility] Urine blood detectionOrdered By: Dr. Barajas on 05-23-2022 RBC Ql (U) Negative Negative [facility] RBC Ql (U) 0 SEEN /hpf 0-5 [facility] Urine clarityOrdered By: Dr. Barajas on 05-23-2022 Clarity (U) Sl. Cloudy Clear [facility] Urine color determinationOrd ered By: Dr. Barajas on 05-23-2022 Color (U) Yellow Yellow [facility] Urine glucose detectionOrder ed By: Dr. Barajas on 05-23-2022 Glucose Ql (U) Normal mg/dl Normal [facility] Urine leukocyte esterase det ection by dipstickOrdered By: Dr. Barajas on 05-23-2022 Leukocyte esterase Test strip Ql (U) Negative Negative [facility] Urine pHOrdered By: Dr. Nancy orantes on 05-23-2022 pH (U) 6.0 [pH] 5.0 - 8.0 [facility] Urine sediment bacteria coun t by microscopy (number/high power field)Ordered By: Dr. Barajas on 05-23-2022 Bacteria LM.HPF (Urine sed) [#/Area] RARE /hpf None Seen [facility] Urine specific gravity measu rementOrdered By: Dr. Barajas on 05-23-2022 Specific gravity (U) [Rel density] 1.025 1.002-1.030 [facility] Urobilinogen Auto test strip Ql (U)Ordered By: Dr. Barajas on 05-23-2022 Urobilinogen Ql (U) Normal mg/dl Normal [facility] Bacteria identified Anaer cx Nom (Unsp spec)Ordered By: Dr. Myrick on 04-19-2022 Anaerobic culture Prevotella bivia [facility] Anaerobic culture Prevotella melaninogenica [facility] Anaerobic culture Anaerobic cocci [facility] Bacteria identified Cx Nom ( Wound)Ordered By: Dr. Myrick on 04-18-2022 Routine wound culture Enterococcus faecalis [facility] No Panel InformationOrdered By: Dr. Aguila on 04-18-2022 No growth in 5 days. [facility] Basophil percentageOrdered B y: Dr. Myrick on 04-16-2022 Basophils (Bld) [#/Vol] 6.0 10*3/uL 4.4-11.0 [facility] Basophil percentageon 2021 WBC (Bld) [#/Vol] 6.0 10*3/uL 4.4-11.[address] [facility] Work Phone: Blood erythrocytes count (nu mber/volume)Ordered By: Dr. Myrick on 04-16-2022 RBC (Bld) [#/Vol] 3.88 10*6/uL 4.2-5.4 [facility] Blood hemoglobin measurement (mass/volume)Ordered By: Dr. Myrick on 04-16-2022 Hemoglobin (Bld) [Mass/Vol] 10.4 g/dL 12.0-15.0 [facility] Blood platelet mean volumeOr dered By: Dr. Myrick on 04-16-2022 Platelet mean volume (Bld) [Entitic vol] 10.2 fL 6.2-12.0 [facility] Determination of erythrocyte mean corpuscular volume (MCV)Ordered By: Dr. Myrick on 04-16-2022 MCV (RBC) [Entitic vol] 84.8 fL 81-99 [facility] Hematocrit Auto (Bld) [Volum e fraction]Ordered By: Dr. Myrick on 04-16-2022 Hematocrit (Bld) [Volume fraction] 32.9 % 37-47 [facility] Laboratory - Hematology and Cell countson 04-16-2022 Erythrocyte distribution width (RBC) [Entitic vol] 38.4 fL 35.1-43.9 [facility] Work Phone: Erythrocyte distribution width (RBC) [Ratio] 12.5 % 11.6-14.6 [facility] Work Phone: MCH (RBC) [Entitic mass] 26.8 pg 27.0-32.0 [facility] Work Phone: MCHC Auto (RBC) [Mass/Vol]Or dered By: Dr. Myrick on 04-16-2022 MCHC (RBC) [Mass/Vol] 31.6 g/dL 32-[address] [facility] No Panel InformationOrdered By: Dr. Myrick on 04-16-2022 26.8 pg 27.0-32.0 [facility] 12.5 % 11.6-14.6 [facility] 38.4 fl 35.1-43.9 [facility] Platelets bldOrdered By: Dr. Myrick on 04-16-2022 Platelets (Bld) [#/Vol] 205 10*3/uL 150-450 [facility] Glucose Glucometer (BldC) [M ass/Vol]Ordered By: Dr. Moore on 04-15-2022 Glucose [Mass/Vol] 146 mg/dL 74-[address] [facility] Comment on above: MANAGEMENT OF PATIEN T CARE PER NURSING PROTOCOL Gram stain for investigation of transfusion reactionOrdered By: Dr. Myrick on 04-15-2022 Microscopic observation Gram stain Nom (Unsp spec) [facility] No Panel Informationon 04-15 Thyroid Stimulating Hormone (TSH) 4.08 uIU/mL 0.358-3.74 [facility] Work Phone: No Panel InformationOrdered By: Dr. Garcia on 04-15-2022 4.08 uIU/mL 0.358-3.74 [facility] Whole blood hemoglobin A1c/t otal hemoglobin ratio (mass fraction)Ordered By: Dr. Garcia on 04-15-2022 HbA1c (Bld) [Mass fraction] 5.6 % 3.8-5.6 [facility] Comment on above: Normal < 5.7 % Predi abetic 5.7 - 6.4 % Diabetic >or= 6.5 % Please note range changes. Absolute lymphocyte countOrd ered By: Dr. Moore on 04-14-2022 Lymphocytes Auto (Unsp spec) [#/Vol] 1.36 10*3/uL 0.83-4.51 [facility] Basophil percentageOrdered B y: Dr. Myrick on 04-14-2022 Basophil percentage 122 mg/dL 74-106 [facility] Basophil percentage 7.5 g/dL 6.4-8.2 [facility] Basophil percentage 0.40 mg/dL 0.20-1.00 [facility] Basophil percentage 135 mmol/L 136-145 [facility] Basophil percentage 3.6 mmol/L 3.5-5.1 [facility] Basophil percentage 100 mmol/L 98-107 [facility] Basophil percentageOrdered B y: Dr. Moore on 04-14-2022 Basophils (Bld) [#/Vol] 5.8 10*3/uL 2.0-7.7 [facility] Basophils/100 WBC (Bld) 0.4 % 0-1 [facility] Basophils/100 WBC (Bld) 69.4 % 47-70 [facility] Basophils/100 WBC (Bld) 2.3 % 0-5 [facility] Basophil percentageon 2021 Bilirubin [Mass/Vol] 0.40 mg/dL 0.20-1.00 [facility] Work Phone: Comment on above: For patients on eltr ombopag therapy, use of Dimension Bowman TBIL is not recommended. Chloride [Moles/Vol] 100 mmol/L 98-107 [facility] Work Phone: Eosinophils/100 WBC (Bld) 2.3 % 0-5 [facility] Work Phone: Glucose [Mass/Vol] 122 mg/dL 74-[address] [facility] Work Phone: Comment on above: Fasting Glucose resu lt from 100 to 125 mg/dL suggests IMPAIRED HOMEOSTASIS per A.D.A. criteria. Neutrophils (Bld) [#/Vol] 5.8 10*3/uL 2.0-7.7 [facility] Work Phone: Neutrophils/100 WBC (Bld) 69.4 % 47-70 [facility] Work Phone: Potassium [Moles/Vol] 3.6 mmol/L 3.5-5.[address] [facility] Work Phone: Protein [Mass/Vol] 7.5 g/dL 6.4-8.[address] [facility] Work Phone: Sodium [Moles/Vol] 135 mmol/L 136-[address] [facility] Work Phone: Blood lymphocytes/100 leukoc ytesOrdered By: Dr. Moore on 04-14-2022 Lymphocytes/100 WBC (Bld) 16.2 % 19-41 [facility] Blood monocytes/100 leukocyt esOrdered By: Dr. Moore on 04-14-2022 Monocytes/100 WBC (Bld) 11.5 % 0-10 [facility] Laboratory - Chemistry and C hemistry - challengeon 04-14-2022 ALP [Catalytic activity/Vol] 77 U/L 45-117 [facility] Work Phone: ALT [Catalytic activity/Vol] 16 U/L 13-56 [facility] Work Phone: CO2 [Moles/Vol] 26.0 mmol/L 21.0-32.0 [facility] Work Phone: Globulin (S) [Mass/Vol] 4.3 g/dL 2.2-4.2 [facility] Work Phone: Urea nitrogen/Creatinine [Mass ratio] 10.6 mg/mg - [facility] Work Phone: Laboratory - Hematology and Cell countson 04-14-2022 Immature granulocytes/100 WBC (Bld) 0.200 % 0.0-0.9 [facility] Work Phone: Comment on above: IG% - Immature Granu locytes (promyelocytes, myelocytes and metamyelocytes) > 1% indicates that a LEFT SHIFT is Present. Nucleated RBC/100 WBC (Bld) [Ratio] 0 % 0-5 [facility] Work Phone: No Panel Informationon 04-14 Estimated Creatinine Clearance Calc 95.11 ml/min [facility] Work Phone: Estimated GFR (MDRD) Amer 113 mL/min >60 [facility] Work Phone: Comment on above: GFR Calc Estimated GFR (MDRD) Non-Af Amer 93 mL/min >60 [facility] Work Phone: Comment on above: Non- GFR Calc No Panel InformationOrdered By: Dr. Moore on 04-14-2022 0.200 % 0.0-0.9 [facility] 0 % 0-5 [facility] No Panel InformationOrdered By: Dr. Myrick on 04-14-2022 93 mL/min >60 [facility] 113 mL/min >60 [facility] 95.11 ml/min [facility] 10.6 RATIO 03-10 [facility] 4.3 g/dL 2.2-4.2 [facility] 77 U/L 45-117 [facility] 16 U/L 13-56 [facility] 26.0 mmol/L 21.0-32.0 [facility] Serum or plasma albumin mg urement (mass/volume)Ordered By: Dr. Myrick on 04-14-2022 Albumin [Mass/Vol] 3.2 g/dL 3.2-5.[address] [facility] Serum or plasma albumin/glob ulin mass ratioOrdered By: Dr. Myrick on 04-14-2022 Albumin/Globulin [Mass ratio] 0.7 {ratio} 0.9-2.4 [facility] Serum or plasma calcium mg urement (mass/volume)Ordered By: Dr. Myrick on 04-14-2022 Calcium [Mass/Vol] 9.1 mg/dL 8.5-10.[address] [facility] Serum or plasma creatinine m easurement (mass/volume)Ordered By: Dr. Myrick on 04-14-2022 Creatinine [Mass/Vol] 0.75 mg/dL 0.55-1.[address] [facility] Comment on above: The validity of the calculated GFR & GFRAA in patients over 70 years has not been determined. Clinical correlation is essential. Serum or plasma urea nitroge n measurement (mass/volume)Ordered By: Dr. Myrick on 04-14-2022 Urea nitrogen [Mass/Vol] 8 mg/dL 7-18 [facility] Thin prep Papanicolaou smear with manual screeningOrdered By: Dr. Myrick on 04-14-2022 Thin prep Papanicolaou smear with manual screening 8 U/L 15-37 [facility] Thin prep Papanicolaou smear with manual screening 9 5-15 [facility] INR in Blood by Coagulation assayOrdered By: Dr. Moore on 04-13-2022 INR Coag (Bld) [Relative time] 1.2 {INR} [facility] Laboratory - Coagulationon 1 06-13-2021 PT Coag (PPP) [Time] 14.4 s 11.7-14.9 [facility] Work Phone: No Panel InformationOrdered By: Dr. Moore on 04-13-2022 14.4 SECONDS 11.7-14.9 [facility] Absolute lymphocyte counton 04-12-2022 Lymphocytes Auto (Unsp spec) [#/Vol] 0.96 10*3/uL 0.83-4.51 [facility] Work Phone: Basophil percentageOrdered B y: Dr. Aguila on 04-12-2022 Basophil percentage 0 SEEN /hpf 0-5 [facility] Basophil percentage 1.6 mmol/L 0.4-2.0 [facility] Basophil percentageon 2021 Basophils/100 WBC (Bld) 0.4 % 0-1 [facility] Work Phone: Chloride [Moles/Vol] 102 mmol/L 98-107 [facility]: Eosinophils/100 WBC (Bld) 0.8 % 0-5 [facility] Work Phone: Glucose [Mass/Vol] 109 mg/dL 74-[address] [facility] Work Phone: Comment on above: Fasting Glucose resu lt from 100 to 125 mg/dL suggests IMPAIRED HOMEOSTASIS per A.D.A. criteria. Lactate [Moles/Vol] 1.6 mmol/L 0.4-2.0 [facility] Work Phone: Neutrophils (Bld) [#/Vol] 6.4 10*3/uL 2.0-7.7 [facility] Work Phone: Neutrophils/100 WBC (Bld) 76.7 % 47-70 [facility] Work Phone: Potassium [Moles/Vol] 3.3 mmol/L 3.5-5.[address] [facility] Work Phone: Sodium [Moles/Vol] 137 mmol/L 136-[address] [facility] Work Phone: WBC (Bld) [#/Vol] 8.3 10*3/uL 4.4-11.[address] [facility] Work Phone: Bilirubin Test strip Ql (U)O rdered By: Dr. Aguila on 04-12-2022 Bilirubin Ql (U) Negative Negative [facility] Blood erythrocytes count (nu mber/volume)on 04-12-2022 RBC (Bld) [#/Vol] 4.40 10*6/uL 4.2-5.4 [facility] Work Phone: Blood hemoglobin measurement (mass/volume)on 04-12-2022 Hemoglobin (Bld) [Mass/Vol] 11.9 g/dL 12.0-15.0 [facility] Work Phone: Blood lymphocytes/100 leukoc yteson 04-12-2022 Lymphocytes/100 WBC (Bld) 11.6 % 19-41 [facility] Work Phone: Blood monocytes/100 leukocyt eson 04-12-2022 Monocytes/100 WBC (Bld) 10.3 % 0-10 [facility] Work Phone: Blood platelet mean volumeon 04-12-2022 Platelet mean volume (Bld) [Entitic vol] 10.4 fL 6.2-12.0 [facility] Work Phone: Determination of erythrocyte mean corpuscular volume (MCV)on 04-12-2022 MCV (RBC) [Entitic vol] 82.3 fL 81-99 [facility] Work Phone: Hematocrit Auto (Bld) [Volum e fraction]on 04-12-2022 Hematocrit (Bld) [Volume fraction] 36.2 % 37-47 [facility] Work Phone: Influenza virus A and B and SARS-CoV-2 (COVID-19) Ag panel - Upper respiratory specimOrdered By: Dr. Aguila on 04-12-2022 SARS-CoV-2 (COVID-19) RNA JONE+probe Ql (Resp) [facility] Ketones Test strip Ql (U)Ord ered By: Dr. Aguila on 04-12-2022 Ketones Ql (U) Negative Negative [facility] Laboratory - Chemistry and C hemistry - challengeon 04-12-2022 CO2 [Moles/Vol] 28.0 mmol/L 21.0-32.0 [facility] Work Phone: Urea nitrogen/Creatinine [Mass ratio] 7.1 mg/mg 10-20 [facility] Work Phone: Laboratory - Hematology and Cell countson 04-12-2022 Erythrocyte distribution width (RBC) [Entitic vol] 37.9 fL 35.1-43.9 [facility] Work Phone: Erythrocyte distribution width (RBC) [Ratio] 12.4 % 11.6-14.6 [facility] Work Phone: Immature granulocytes/100 WBC (Bld) 0.200 % 0.0-0.9 [facility] Work Phone: Comment on above: IG% - Immature Granu locytes (promyelocytes, myelocytes and metamyelocytes) > 1% indicates that a LEFT SHIFT is Present. MCH (RBC) [Entitic mass] 27.0 pg 27.0-32.0 [facility] Work Phone: Nucleated RBC/100 WBC (Bld) [Ratio] 0 % 0-5 [facility] Work Phone: MCHC Auto (RBC) [Mass/Vol]on 04-12-2022 MCHC (RBC) [Mass/Vol] 32.9 g/dL 32-[address] [facility] Work Phone: Mucus LM Ql (Urine sed)Order ed By: Dr. Aguila on 04-12-2022 Mucus Ql (Urine sed) 0 SEEN /hpf [facility] Nitrite Test strip Ql (U)Ord ered By: Dr. Aguila on 04-12-2022 Nitrite Ql (U) Negative Negative [facility] No Panel Informationon 04-12 D-Dimer Quantitative (PE/DVT) 1.56 FEU/ug/m 0.27-0.49 [facility] Work Phone: Comment on above: D-Dimer ELEVATED (>0 .49): Additional studies and clinicalassessments are indicated to conclude diagnosis of:Deep Vein Thrombosis (DVT) or Pulmonary Embolism (PE) D-Dimer ELEVATED (>0 .49): Additional studies and clinicalassessments are indicated to conclude diagnosis of:Deep Vein Thrombosis (DVT) or Pulmonary Embolism (PE)CRITICAL VALUE VERIFIED. CALLED TO SABRINA QUINN RN [id number] [facility].RESULTS READ BACK BY SAME. Previous reported result: 1.56 FEU/ug/mEdited by: ARLENE on 04/13/22:0019 AMENDED REPORT 04/13/2218 D-DIMER QUANT previously reported as: 1.56 *H FEU/ug/m D-Dimer ELEVATED (>0.49): Additional studies and clinicalassessments are indicated to conclude diagnosis of:Deep Vein Thrombosis (DVT) or Pulmonary Embolism (PE) Estimated Creatinine Clearance Calc 101.90 ml/min [facility] Work Phone: Estimated GFR (MDRD) Amer 122 mL/min >60 [facility] Work Phone: Comment on above: GFR Calc Estimated GFR (MDRD) Non-Af Amer 101 mL/min >60 [facility] Work Phone: Comment on above: Non- GFR Calc No Panel InformationOrdered By: Dr. Aguila on 04-12-2022 1.56 FEU/ug/m 0.27-0.49 [facility] Platelets bldon 04-12-2022 Platelets (Bld) [#/Vol] 255 10*3/uL 150-450 [facility] Work Phone: Protein Test strip Ql (U)Ord ered By: Dr. Aguila on 04-12-2022 Protein Ql (U) Negative Negative [facility] Serum or plasma calcium mg urement (mass/volume)on 04-12-2022 Calcium [Mass/Vol] 9.0 mg/dL 8.5-10.[address] [facility] Work Phone: Serum or plasma creatinine m easurement (mass/volume)on 04-12-2022 Creatinine [Mass/Vol] 0.70 mg/dL 0.55-1.[address] [facility] Work Phone: Comment on above: The validity of the calculated GFR & GFRAA in patients over 70 years has not been determined. Clinical correlation is essential. Serum or plasma urea nitroge n measurement (mass/volume)on 04-12-2022 Urea nitrogen [Mass/Vol] 5 mg/dL 7-18 [facility] Work Phone: Squamous epithelial cells de tection in urine sediment by light microscopyOrdered By: Dr. Aguila on 04-12-2022 Epithelial cells.squamous LM Ql (Urine sed) 0-5 SEEN /hpf 5-10 [facility] Thin prep Papanicolaou smear with manual screeningon 04-12-2022 Thin prep Papanicolaou smear with manual screening 7 5-15 [facility] Work Phone: Urine blood detectionOrdered By: Dr. Aguila on 04-12-2022 RBC Ql (U) Negative Negative [facility] RBC Ql (U) 0 SEEN /hpf 0-5 [facility] Urine clarityOrdered By: Dr. Augila on 04-12-2022 Clarity (U) Clear Clear [facility] Urine color determinationOrd ered By: Dr. Aguila on 04-12-2022 Color (U) Yellow Yellow [facility] Urine glucose detectionOrder ed By: Dr. Aguila on 04-12-2022 Glucose Ql (U) Normal mg/dl Normal [facility] Urine leukocyte esterase det ection by dipstickOrdered By: Dr. Aguila on 04-12-2022 Leukocyte esterase Test strip Ql (U) 25 /ul Negative [facility] Urine pHOrdered By: Dr. Presley baxter on 04-12-2022 pH (U) 6.5 [pH] 5.0 - 8.0 [facility] Urine sediment bacteria coun t by microscopy (number/high power field)Ordered By: Dr. Aguila on 04-12-2022 Bacteria LM.HPF (Urine sed) [#/Area] 0 /[HPF] None Seen [facility] Urine specific gravity measu rementOrdered By: Dr. Aguila on 04-12-2022 Specific gravity (U) [Rel density] 1.010 1.002-1.030 [facility] Urobilinogen Auto test strip Ql (U)Ordered By: Dr. Aguila on 04-12-2022 Urobilinogen Ql (U) Normal mg/dl Normal [facility] Bacteria identified Cx Nom ( U)Ordered By: Dr. Myrick on 03-31-2022 Culture, urine Mixed Gram Pos & Gra m Neg Org [facility] Absolute lymphocyte countOrd ered By: Dr. Kulkarni on 03-30-2022 Lymphocytes Auto (Unsp spec) [#/Vol] 1.50 10*3/uL 0.83-4.51 [facility] Basophil percentageOrdered B y: Dr. Kulkarni on 03-30-2022 Basophil percentage 102 mg/dL 74-106 [facility] Basophil percentage 7.3 g/dL 6.4-8.2 [facility] Basophil percentage 0.40 mg/dL 0.20-1.00 [facility] Basophil percentage 137 mmol/L 136-145 [facility] Basophil percentage 3.8 mmol/L 3.5-5.1 [facility] Basophil percentage 105 mmol/L 98-107 [facility] Basophils (Bld) [#/Vol] 6.5 10*3/uL 4.4-11.0 [facility] Basophils (Bld) [#/Vol] 4.2 10*3/uL 2.0-7.7 [facility] Basophils/100 WBC (Bld) 0.3 % 0-1 [facility] Basophils/100 WBC (Bld) 64.8 % 47-70 [facility] Basophils/100 WBC (Bld) 4.0 % 0-5 [facility] Basophil percentageon 2021 Bilirubin [Mass/Vol] 0.40 mg/dL 0.20-1.00 [facility] Work Phone: Comment on above: For patients on eltr ombopag therapy, use of Dimension Bowman TBIL is not recommended. Chloride [Moles/Vol] 105 mmol/L 98-107 [facility] Work Phone: Eosinophils/100 WBC (Bld) 4.0 % 0-5 [facility] Work Phone: Glucose [Mass/Vol] 102 mg/dL 74-[address] [facility] Work Phone: Comment on above: Fasting Glucose resu lt from 100 to 125 mg/dL suggests IMPAIRED HOMEOSTASIS per A.D.A. criteria. Neutrophils (Bld) [#/Vol] 4.2 10*3/uL 2.0-7.7 [facility] Work Phone: Neutrophils/100 WBC (Bld) 64.8 % 47-70 [facility] Work Phone: Potassium [Moles/Vol] 3.8 mmol/L 3.5-5.[address] [facility] Work Phone: Protein [Mass/Vol] 7.3 g/dL 6.4-8.[address] [facility] Work Phone: Sodium [Moles/Vol] 137 mmol/L 136-[address] [facility] Work Phone: WBC (Bld) [#/Vol] 6.5 10*3/uL 4.4-11.[address] [facility] Work Phone: Blood erythrocytes count (nu mber/volume)Ordered By: Dr. Kulkarni on 03-30-2022 RBC (Bld) [#/Vol] 4.60 10*6/uL 4.2-5.4 [facility] Blood hemoglobin measurement (mass/volume)Ordered By: Dr. Kulkarni on 03-30-2022 Hemoglobin (Bld) [Mass/Vol] 13.0 g/dL 12.0-15.0 [facility] Blood lymphocytes/100 leukoc ytesOrdered By: Dr. Kulkarni on 03-30-2022 Lymphocytes/100 WBC (Bld) 23.1 % 19-41 [facility] Blood monocytes/100 leukocyt esOrdered By: Dr. Kulkarni on 03-30-2022 Monocytes/100 WBC (Bld) 7.5 % 0-10 [facility] Blood platelet mean volumeOr dered By: Dr. Kulkarni on 03-30-2022 Platelet mean volume (Bld) [Entitic vol] 10.5 fL 6.2-12.0 [facility] Determination of erythrocyte mean corpuscular volume (MCV)Ordered By: Dr. Kulkarni on 03-30-2022 MCV (RBC) [Entitic vol] 84.6 fL 81-99 [facility] Hematocrit Auto (Bld) [Volum e fraction]Ordered By: Dr. Kulkarni on 03-30-2022 Hematocrit (Bld) [Volume fraction] 38.9 % 37-47 [facility] Laboratory - Chemistry and C hemistry - challengeon 03-30-2022 ALP [Catalytic activity/Vol] 69 U/L 45-117 [facility] Work Phone: ALT [Catalytic activity/Vol] 31 U/L 13-56 [facility] Work Phone: CO2 [Moles/Vol] 27.0 mmol/L 21.0-32.0 [facility] Work Phone: Globulin (S) [Mass/Vol] 3.7 g/dL 2.2-4.2 [facility] Work Phone: Urea nitrogen/Creatinine [Mass ratio] 12.7 mg/mg 10-20 [facility] Work Phone: Bilirubin Ql (U) Negative [facility] Work Phone: Glucose Ql (U) Negative [facility] Work Phone: [phone] Ketones Ql (U) Negative [facility] Work Phone: [phone] pH (U) 6.5 [pH] [facility] Work Phone: [phone] Specific gravity (U) [Rel density] 1.025 [facility] Work Phone: [phone] Urobilinogen (U) [Mass/Vol] 0.0830540 mg/dL [facility] Work Phone: Laboratory - Hematology and Cell countson 03-30-2022 Erythrocyte distribution width (RBC) [Entitic vol] 37.9 fL 35.1-43.9 [facility] Work Phone: Erythrocyte distribution width (RBC) [Ratio] 12.5 % 11.6-14.6 [facility] Work Phone: Immature granulocytes/100 WBC (Bld) 0.300 % 0.0-0.9 [facility] Work Phone: Comment on above: IG% - Immature Granu locytes (promyelocytes, myelocytes and metamyelocytes) > 1% indicates that a LEFT SHIFT is Present. MCH (RBC) [Entitic mass] 28.3 pg 27.0-32.0 [facility] Work Phone: Nucleated RBC/100 WBC (Bld) [Ratio] 0 % 0-5 [facility] Work Phone: Hemoglobin Ql (U) Negative [facility] Work Phone: Laboratory - Specimen inform ationon 03-30-2022 Clarity (U) Clear [facility] Work Phone: Color (U) Yellow [facility] Work Phone: Laboratory - Urinalysison Nitrite Ql (U) Negative [facility] Work Phone: Protein Ql (U) Negative [facility] Work Phone: MCHC Auto (RBC) [Mass/Vol]Or dered By: Dr. Kulkarni on 03-30-2022 MCHC (RBC) [Mass/Vol] 33.4 g/dL 32-[address] [facility] No Panel Informationon 03-30 Estimated Creatinine Clearance Calc 104.52 ml/min [facility] Work Phone: Estimated GFR (MDRD) Amer 121 mL/min >60 [facility] Work Phone: Comment on above: GFR Calc Estimated GFR (MDRD) Non-Af Amer 100 mL/min >60 [facility] Work Phone: Comment on above: Non- G[facility] Calc [facility] Yellow [facility] Clear [facility] Negative [facility] 1.025 [facility] 6.5 [facility] 0.2 mg/dL [facility] No Panel InformationOrdered By: Dr. Kulkarni on 03-30-2022 28.3 pg 27.0-32.0 [facility] 12.5 % 11.6-14.6 [facility] 37.9 fl 35.1-43.9 [facility] 0.300 % 0.0-0.9 [facility] 0 % 0-5 [facility] 100 mL/min >60 [facility] 121 mL/min >60 [facility] 104.52 ml/min [facility] 12.7 RATIO 10-20 [facility] 3.7 g/dL 2.2-4.2 [facility] 69 U/L 45-117 [facility] 31 U/L 13-56 [facility] 27.0 mmol/L 21.0-32.0 [facility] Platelets bldOrdered By: Dr. Kulkarni on 03-30-2022 Platelets (Bld) [#/Vol] 243 10*3/uL 150-450 [facility] Serum or plasma albumin mg urement (mass/volume)Ordered By: Dr. Kulkarni on 03-30-2022 Albumin [Mass/Vol] 3.6 g/dL 3.2-5.[address] [facility] Serum or plasma albumin/glob ulin mass ratioOrdered By: Dr. Kulkarni on 03-30-2022 Albumin/Globulin [Mass ratio] 1.0 {ratio} 0.9-2.4 [facility] Serum or plasma calcium mg urement (mass/volume)Ordered By: Dr. Kulkarni on 03-30-2022 Calcium [Mass/Vol] 9.1 mg/dL 8.5-10.[address] [facility] Serum or plasma creatinine m easurement (mass/volume)Ordered By: Dr. Kulkarni on 03-30-2022 Creatinine [Mass/Vol] 0.71 mg/dL 0.55-1.[address] [facility] Comment on above: The validity of the calculated GFR & GFRAA in patients over 70 years has not been determined. Clinical correlation is essential. Serum or plasma urea nitroge n measurement (mass/volume)Ordered By: Dr. Kulkarni on 03-30-2022 Urea nitrogen [Mass/Vol] 9 mg/dL 7-18 [facility] Thin prep Papanicolaou smear with manual screeningOrdered By: Dr. Kulkarni on 03-30-2022 Thin prep Papanicolaou smear with manual screening 17 U/L 15-37 [facility] Thin prep Papanicolaou smear with manual screening 5 5-15 [facility] Basophil percentageOrdered B y: Dr. Moore on 03-23-2022 Basophils (Bld) [#/Vol] 9.1 10*3/uL 4.4-11.0 [facility] Basophil percentageon 2021 WBC (Bld) [#/Vol] 9.1 10*3/uL 4.4-11.[address] [facility] Work Phone: Blood erythrocytes count (nu mber/volume)Ordered By: Dr. Moore on 03-23-2022 RBC (Bld) [#/Vol] 4.74 10*6/uL 4.2-5.4 [facility] Blood hemoglobin measurement (mass/volume)Ordered By: Dr. Moore on 03-23-2022 Hemoglobin (Bld) [Mass/Vol] 13.4 g/dL 12.0-15.0 [facility] Blood platelet mean volumeOr dered By: Dr. Moore on 03-23-2022 Platelet mean volume (Bld) [Entitic vol] 10.6 fL 6.2-12.0 [facility] Determination of erythrocyte mean corpuscular volume (MCV)Ordered By: Dr. Moore on 03-23-2022 MCV (RBC) [Entitic vol] 84.8 fL 81-99 [facility] Glucose Glucometer (dC) [M ass/Vol]Ordered By: Dr. Moore on 03-23-2022 Glucose [Mass/Vol] 142 mg/dL 74-[address] [facility] Comment on above: MANAGEMENT OF PATIEN T CARE PER NURSING PROTOCOL Hematocrit Auto (Bld) [Volum e fraction]Ordered By: Dr. Moore on 03-23-2022 Hematocrit (Bld) [Volume fraction] 40.2 % 37-47 [facility] Laboratory - Hematology and Cell countson 03-23-2022 Erythrocyte distribution width (RBC) [Entitic vol] 38.3 fL 35.1-43.9 [facility] Work Phone: Erythrocyte distribution width (RBC) [Ratio] 12.4 % 11.6-14.6 [facility] Work Phone: MCH (RBC) [Entitic mass] 28.3 pg 27.0-32.0 [facility] Work Phone: MCHC Auto (RBC) [Mass/Vol]Or dered By: Dr. Moore on 03-23-2022 MCHC (RBC) [Mass/Vol] 33.3 g/dL 32-[address] [facility] No Panel InformationOrdered By: Dr. Moore on 03-23-2022 28.3 pg 27.0-32.0 [facility] 12.4 % 11.6-14.6 [facility] 38.3 fl 35.1-43.9 [facility] Platelets bldOrdered By: Dr. Moore on 03-23-2022 Platelets (Bld) [#/Vol] 172 10*3/uL 150-450 [facility] Absolute lymphocyte countOrd ered By: Dr. Moore on 03-22-2022 Lymphocytes Auto (Unsp spec) [#/Vol] 0.61 10*3/uL 0.83-4.51 [facility] Basophil percentageOrdered B y: Dr. Moore on 03-22-2022 Basophils (Bld) [#/Vol] 10.2 10*3/uL 2.0-7.7 [facility] Basophils/100 WBC (Bld) 0.1 % 0-1 [facility] Basophils/100 WBC (Bld) 89.1 % 47-70 [facility] Basophils/100 WBC (Bld) 0.0 % 0-5 [facility] Basophil percentageon 2021 Eosinophils/100 WBC (Bld) 0.0 % 0-5 [facility] Work Phone: Neutrophils (Bld) [#/Vol] 10.2 10*3/uL 2.0-7.7 [facility] Work Phone: Neutrophils/100 WBC (Bld) 89.1 % 47-70 [facility] Work Phone: Blood lymphocytes/100 leukoc ytesOrdered By: Dr. Moore on 03-22-2022 Lymphocytes/100 WBC (Bld) 5.3 % 19-41 [facility] Blood monocytes/100 leukocyt esOrdered By: Dr. Moore on 03-22-2022 Monocytes/100 WBC (Bld) 5.1 % 0-10 [facility] Laboratory - Chemistry and C hemistry - challengeon 03-22-2022 HCG ( test) Ql (U) Negative [facility] Work Phone: Comment on above: Very dilute urine sp ecimens, as indicated by a low specificgravity, may not contain sales representative levels of hCG. If is still suspected, a first morning urinespecimen should be collected 48 hours later and tested. Laboratory - Hematology and Cell countson 03-22-2022 Immature granulocytes/100 WBC (Bld) 0.400 % 0.0-0.9 [facility] Work Phone: Comment on above: IG% - Immature Granu locytes (promyelocytes, myelocytes and metamyelocytes) > 1% indicates that a LEFT SHIFT is Present. Nucleated RBC/100 WBC (Bld) [Ratio] 0 % 0-5 [facility] Work Phone: No Panel InformationOrdered By: Dr. Moore on 03-22-2022 0.400 % 0.0-0.9 [facility] 0 % 0-5 [facility] No Panel InformationOrdered By: Dr. Curry on 03-22-2022 Negative [facility] Absolute lymphocyte countOrd ered By: Dr. Melgar on 03-04-2022 Lymphocytes Auto (Unsp spec) [#/Vol] 1.33 10*3/uL 0.83-4.51 [facility] Basophil percentageOrdered B y: Dr. Melgar on 03-04-2022 Basophil percentage 87 mg/dL 74-106 [facility] Basophil percentage 139 mmol/L 136-145 [facility] Basophil percentage 4.0 mmol/L 3.5-5.1 [facility] Basophil percentage 107 mmol/L 98-107 [facility] Basophils (Bld) [#/Vol] 5.5 10*3/uL 4.4-11.0 [facility] Basophils (Bld) [#/Vol] 3.4 10*3/uL 2.0-7.7 [facility] Basophils/100 WBC (Bld) 0.5 % 0-1 [facility] Basophils/100 WBC (Bld) 61.9 % 47-70 [facility] Basophils/100 WBC (Bld) 3.5 % 0-5 [facility] Basophil percentageon 2021 Chloride [Moles/Vol] 107 mmol/L 98-107 [facility] Work Phone: Eosinophils/100 WBC (Bld) 3.5 % 0-5 [facility] Work Phone: Glucose [Mass/Vol] 87 mg/dL 74-[address] [facility] Work Phone: Neutrophils (Bld) [#/Vol] 3.4 10*3/uL 2.0-7.7 [facility] Work Phone: Neutrophils/100 WBC (Bld) 61.9 % 47-70 [facility] Work Phone: Potassium [Moles/Vol] 4.0 mmol/L 3.5-5.[address] [facility] Work Phone: Sodium [Moles/Vol] 139 mmol/L 136-[address] [facility] Work Phone: WBC (Bld) [#/Vol] 5.5 10*3/uL 4.4-11.[address] [facility] Work Phone: Blood erythrocytes count (nu mber/volume)Ordered By: Dr. Melgar on 03-04-2022 RBC (Bld) [#/Vol] 5.22 10*6/uL 4.2-5.4 [facility] Blood hemoglobin measurement (mass/volume)Ordered By: Dr. Melgar on 03-04-2022 Hemoglobin (Bld) [Mass/Vol] 15.2 g/dL 12.0-15.0 [facility] Blood lymphocytes/100 leukoc ytesOrdered By: Dr. Melgar on 03-04-2022 Lymphocytes/100 WBC (Bld) 24.4 % 19-41 [facility] Blood monocytes/100 leukocyt esOrdered By: Dr. Melgar on 03-04-2022 Monocytes/100 WBC (Bld) 9.5 % 0-10 [facility] Blood platelet mean volumeOr dered By: Dr. Melgar on 03-04-2022 Platelet mean volume (Bld) [Entitic vol] 11.1 fL 6.2-12.0 [facility] Determination of erythrocyte mean corpuscular volume (MCV)Ordered By: Dr. Melgar on 03-04-2022 MCV (RBC) [Entitic vol] 87.0 fL 81-99 [facility] Hematocrit Auto (Bld) [Volum e fraction]Ordered By: Dr. Melgar on 03-04-2022 Hematocrit (Bld) [Volume fraction] 45.4 % 37-47 [facility] Laboratory - Chemistry and C hemistry - challengeon 03-04-2022 CO2 [Moles/Vol] 27.0 mmol/L 21.0-32.0 [facility] Work Phone: Urea nitrogen/Creatinine [Mass ratio] 12.2 mg/mg 10-20 [facility] Work Phone: [phone] Laboratory - Hematology and Cell countson 03-04-2022 Erythrocyte distribution width (RBC) [Entitic vol] 39.7 fL 35.1-43.9 [facility] Work Phone: [phone] Erythrocyte distribution width (RBC) [Ratio] 12.5 % 11.6-14.6 [facility] Work Phone: Immature granulocytes/100 WBC (Bld) 0.200 % 0.0-0.9 [facility] Work Phone: Comment on above: IG% - Immature Granu locytes (promyelocytes, myelocytes and metamyelocytes) > 1% indicates that a LEFT SHIFT is Present. MCH (RBC) [Entitic mass] 29.1 pg 27.0-32.0 [facility] Work Phone: Nucleated RBC/100 WBC (Bld) [Ratio] 0 % 0-5 [facility] Work Phone: [phone] MCHC Auto (RBC) [Mass/Vol]Or dered By: Dr. Melgar on 03-04-2022 MCHC (RBC) [Mass/Vol] 33.5 g/dL 32-[address] [facility] No Panel Informationon 03-04 Estimated Creatinine Clearance Calc 86.99 ml/min [facility] Work Phone: Estimated GFR (MDRD) Amer 102 mL/min >60 [facility] Work Phone: Comment on above: GFR Calc Estimated GFR (MDRD) Non-Af Amer 84 mL/min >60 [facility] Work Phone: Comment on above: Non- GFR Calc No Panel InformationOrdered By: Dr. Melgar on 03-04-2022 29.1 pg 27.0-32.0 [facility] 12.5 % 11.6-14.6 [facility] 39.7 fl 35.1-43.9 [facility] 0.200 % 0.0-0.9 [facility] 0 % 0-5 [facility] 84 mL/min >60 [facility] 102 mL/min >60 [facility] 86.99 ml/min [facility] 12.2 RATIO 10-20 [facility] 27.0 mmol/L 21.0-32.0 [facility] Platelets bldOrdered By: Dr. Melgar on 03-04-2022 Platelets (Bld) [#/Vol] 182 10*3/uL 150-450 [facility] Serum or plasma calcium mg urement (mass/volume)Ordered By: Dr. Melgar on 03-04-2022 Calcium [Mass/Vol] 9.1 mg/dL 8.5-10.[address] [facility] Serum or plasma creatinine m easurement (mass/volume)Ordered By: Dr. Melgar on 03-04-2022 Creatinine [Mass/Vol] 0.82 mg/dL 0.55-1.[address] [facility] Comment on above: The validity of the calculated GFR & GFRAA in patients over 70 years has not been determined. Clinical correlation is essential. Serum or plasma urea nitroge n measurement (mass/volume)Ordered By: Dr. Melgar on 03-04-2022 Urea nitrogen [Mass/Vol] 10 mg/dL 7-18 [facility] Thin prep Papanicolaou smear with manual screeningOrdered By: Dr. Melgar on 03-04-2022 Thin prep Papanicolaou smear with manual screening 5 5-15 [facility] Laboratory - Chemistry and C hemistry - challengeon 03-02-2022 Magnesium [Mass/Vol] 1.8 mg/dL 1.6-2.6 [facility] Work Phone: No Panel InformationOrdered By: Dr. Garcia on 03-02-2022 1.8 mg/dL 1.6-2.6 [facility] Bacteria identified Cx Nom ( U)Ordered By: Dr. Moore on 02-16-2022 Culture, urine Positive [facility] Absolute lymphocyte countOrd ered By: Dr. Moore on 02-15-2022 Lymphocytes Auto (Unsp spec) [#/Vol] 1.31 10*3/uL 0.83-4.51 [facility] Basophil percentageOrdered B y: Dr. Guzman on 02-15-2022 Basophil percentage 0-5 SEEN /hpf 0-5 [facility] Basophil percentageOrdered B y: Dr. Moore on 02-15-2022 Basophil percentage 101 mg/dL 74-106 [facility] Basophil percentage 7.3 g/dL 6.4-8.2 [facility] Basophil percentage 0.40 mg/dL 0.20-1.00 [facility] Basophil percentage 140 mmol/L 136-145 [facility] Basophil percentage 4.2 mmol/L 3.5-5.1 [facility] Basophil percentage 108 mmol/L 98-107 [facility] Basophils (Bld) [#/Vol] 4.7 10*3/uL 4.4-11.0 [facility] Basophils (Bld) [#/Vol] 2.7 10*3/uL 2.0-7.7 [facility] Basophils/100 WBC (Bld) 0.6 % 0-1 [facility] Basophils/100 WBC (Bld) 57.4 % 47-70 [facility] Basophils/100 WBC (Bld) 3.6 % 0-5 [facility] Basophil percentageon 2021 Bilirubin [Mass/Vol] 0.40 mg/dL 0.20-1.00 [facility] Work Phone: Comment on above: For patients on eltr ombopag therapy, use of Dimension Bowman TBIL is not recommended. Chloride [Moles/Vol] 108 mmol/L 98-107 [facility] Work Phone: [phone] Eosinophils/100 WBC (Bld) 3.6 % 0-5 [facility] Work Phone: Glucose [Mass/Vol] 101 mg/dL 74-[address] [facility] Work Phone: [phone] Comment on above: Fasting Glucose resu lt from 100 to 125 mg/dL suggests IMPAIRED HOMEOSTASIS per A.D.A. criteria. Neutrophils (Bld) [#/Vol] 2.7 10*3/uL 2.0-7.7 [facility] Work Phone: [phone] Neutrophils/100 WBC (Bld) 57.4 % 47-70 [facility] Work Phone: [phone] Potassium [Moles/Vol] 4.2 mmol/L 3.5-5.[address] [facility] Work Phone: Protein [Mass/Vol] 7.3 g/dL 6.4-8.[address] [facility] Work Phone: Sodium [Moles/Vol] 140 mmol/L 136-[address] [facility] Work Phone: [phone] WBC (Bld) [#/Vol] 4.7 10*3/uL 4.4-11.[address] [facility] Work Phone: Bilirubin Test strip Ql (U)O rdered By: Dr. Guzman on 02-15-2022 Bilirubin Ql (U) Negative Negative [facility] Blood erythrocytes count (nu mber/volume)Ordered By: Dr. Moore on 02-15-2022 RBC (Bld) [#/Vol] 4.94 10*6/uL 4.2-5.4 [facility] Blood hemoglobin measurement (mass/volume)Ordered By: Dr. Moore on 02-15-2022 Hemoglobin (Bld) [Mass/Vol] 13.9 g/dL 12.0-15.0 [facility] Blood lymphocytes/100 leukoc ytesOrdered By: Dr. Moore on 02-15-2022 Lymphocytes/100 WBC (Bld) 28.1 % 19-41 [facility] Blood monocytes/100 leukocyt esOrdered By: Dr. Moore on 02-15-2022 Monocytes/100 WBC (Bld) 10.1 % 0-10 [facility] Blood platelet mean volumeOr dered By: Dr. Moore on 02-15-2022 Platelet mean volume (Bld) [Entitic vol] 11.0 fL 6.2-12.0 [facility] Determination of erythrocyte mean corpuscular volume (MCV)Ordered By: Dr. Moore on 02-15-2022 MCV (RBC) [Entitic vol] 87.4 fL 81-99 [facility] Hematocrit Auto (Bld) [Volum e fraction]Ordered By: Dr. Moore on 02-15-2022 Hematocrit (Bld) [Volume fraction] 43.2 % 37-47 [facility] Ketones Test strip Ql (U)Ord ered By: Dr. Guzman on 02-15-2022 Ketones Ql (U) Negative Negative [facility] Laboratory - Chemistry and C hemistry - challengeon 02-15-2022 HCG ( test) Ql (U) Negative [facility] Work Phone: Comment on above: Very dilute urine sp ecimens, as indicated by a low specificgravity, may not contain sales representative levels of hCG. If is still suspected, a first morning urinespecimen should be collected 48 hours later and tested. ALP [Catalytic activity/Vol] 62 U/L 45-117 [facility] Work Phone: ALT [Catalytic activity/Vol] 21 U/L 13-56 [facility] Work Phone: CO2 [Moles/Vol] 29.0 mmol/L 21.0-32.0 [facility] Work Phone: Globulin (S) [Mass/Vol] 3.5 g/dL 2.2-4.2 [facility] Work Phone: Urea nitrogen/Creatinine [Mass ratio] 10.7 mg/mg 10-20 [facility] Work Phone: Laboratory - Hematology and Cell countson 02-15-2022 Erythrocyte distribution width (RBC) [Entitic vol] 40.2 fL 35.1-43.9 [facility] Work Phone: Erythrocyte distribution width (RBC) [Ratio] 12.6 % 11.6-14.6 [facility] Work Phone: Immature granulocytes/100 WBC (Bld) 0.200 % 0.0-0.9 [facility] Work Phone: Comment on above: IG% - Immature Granu locytes (promyelocytes, myelocytes and metamyelocytes) > 1% indicates that a LEFT SHIFT is Present. MCH (RBC) [Entitic mass] 28.1 pg 27.0-32.0 [facility] Work Phone: Nucleated RBC/100 WBC (Bld) [Ratio] 0 % 0-5 [facility] Work Phone: MCHC Auto (RBC) [Mass/Vol]Or dered By: Dr. Moore on 02-15-2022 MCHC (RBC) [Mass/Vol] 32.2 g/dL 32-[address] [facility] Mucus LM Ql (Urine sed)Order ed By: Dr. Guzman on 02-15-2022 Mucus Ql (Urine sed) 0 SEEN /hpf [facility] Nitrite Test strip Ql (U)Ord ered By: Dr. Guzman on 02-15-2022 Nitrite Ql (U) Negative Negative [facility] No Panel InformationOrdered By: Dr. Guzman on 02-15-2022 Negative [facility] No Panel Informationon 02-15 Estimated GFR (MDRD) Amer 114 mL/min >60 [facility] Work Phone: Comment on above: GFR Calc Estimated GFR (MDRD) Non-Af Amer 94 mL/min >60 [facility] Work Phone: Comment on above: Non- GFR Calc Thyroid Stimulating Hormone (TSH) 0.62 uIU/mL 0.358-3.74 [facility] Work Phone: No Panel InformationOrdered By: Dr. Moore on 02-15-2022 28.1 pg 27.0-32.0 [facility] 12.6 % 11.6-14.6 [facility] 40.2 fl 35.1-43.9 [facility] 0.200 % 0.0-0.9 [facility] 0 % 0-5 [facility] 94 mL/min >60 [facility] 114 mL/min >60 [facility] 10.7 RATIO 10-20 [facility] 3.5 g/dL 2.2-4.2 [facility] 62 U/L 45-117 [facility] 21 U/L 13-56 [facility] 29.0 mmol/L 21.0-32.0 [facility] 0.62 uIU/mL 0.358-3.74 [facility] Platelets bldOrdered By: Dr. Moore on 02-15-2022 Platelets (Bld) [#/Vol] 175 10*3/uL 150-450 [facility] Protein Test strip Ql (U)Ord ered By: Dr. Guzman on 02-15-2022 Protein Ql (U) Negative Negative [facility] Serum or plasma albumin mg urement (mass/volume)Ordered By: Dr. Moore on 02-15-2022 Albumin [Mass/Vol] 3.8 g/dL 3.2-5.[address] [facility] Serum or plasma albumin/glob ulin mass ratioOrdered By: Dr. Moore on 02-15-2022 Albumin/Globulin [Mass ratio] 1.1 {ratio} 0.9-2.4 [facility] Serum or plasma calcium mg urement (mass/volume)Ordered By: Dr. Moore on 02-15-2022 Calcium [Mass/Vol] 9.1 mg/dL 8.5-10.[address] [facility] Serum or plasma creatinine m easurement (mass/volume)Ordered By: Dr. Moore on 02-15-2022 Creatinine [Mass/Vol] 0.75 mg/dL 0.55-1.[address] [facility] Comment on above: The validity of the calculated GFR & GFRAA in patients over 70 years has not been determined. Clinical correlation is essential. Serum or plasma urea nitroge n measurement (mass/volume)Ordered By: Dr. Moore on 02-15-2022 Urea nitrogen [Mass/Vol] 8 mg/dL 7-18 [facility] Squamous epithelial cells de tection in urine sediment by light microscopyOrdered By: Dr. Guzman on 02-15-2022 Epithelial cells.squamous LM Ql (Urine sed) 5-10 SEEN /hpf 5-10 [facility] Thin prep Papanicolaou smear with manual screeningOrdered By: Dr. Moore on 02-15-2022 Thin prep Papanicolaou smear with manual screening 11 U/L 15-37 [facility] Thin prep Papanicolaou smear with manual screening 3 5-15 [facility] Urine blood detectionOrdered By: Dr. Guzman on 02-15-2022 RBC Ql (U) Negative Negative [facility] RBC Ql (U) 0 SEEN /hpf 0-5 [facility] Urine clarityOrdered By: Dr. Guzman on 02-15-2022 Clarity (U) Sl. Cloudy Clear [facility] Urine color determinationOrd ered By: Dr. Guzman on 02-15-2022 Color (U) Yellow Yellow [facility] Urine glucose detectionOrder ed By: Dr. Guzman on 02-15-2022 Glucose Ql (U) Normal mg/dl Normal [facility] Urine leukocyte esterase det ection by dipstickOrdered By: Dr. Guzman on 02-15-2022 Leukocyte esterase Test strip Ql (U) 25 /ul Negative [facility] Urine pHOrdered By: Dr. Guzman o n 02-15-2022 pH (U) 6.0 [pH] 5.0 - 8.0 [facility] Urine sediment bacteria coun t by microscopy (number/high power field)Ordered By: Dr. Guzman on 02-15-2022 Bacteria LM.HPF (Urine sed) [#/Area] 1 /[HPF] None Seen [facility] Urine specific gravity measu rementOrdered By: Dr. Guzman on 02-15-2022 Specific gravity (U) [Rel density] 1.015 1.002-1.030 [facility] Urobilinogen Auto test strip Ql (U)Ordered By: Dr. Guzman on 02-15-2022 Urobilinogen Ql (U) Normal mg/dl Normal [facility] Whole blood hemoglobin A1c/t otal hemoglobin ratio (mass fraction)Ordered By: Dr. Moore on 02-15-2022 HbA1c (Bld) [Mass fraction] 5.5 % 3.8-5.6 [facility] Comment on above: Normal < 5.7 % Predi abetic 5.7 - 6.4 % Diabetic >or= 6.5 % Please note range changes. Atypical perinuclear antineu trophil cytoplasmic antibodies measurementon 01-13-2022 Neutrophil cytoplasmic Ab.perinuclear.atypical IF (S) [Titer] <1:20 titer Neg:<1:20 [facility] Work Phone: Comment on above: The atypical pANCA p attern has been observed in asignificant percentage of patients with ulcerative colitis,primary sclerosing cholangitis and autoimmune hepatitis. Basophil percentageon 2021 Ammonia (P) [Moles/Vol] 15.0 umol/L 11-32 [facility] Work Phone: Basophil percentage < 0.2 AI 0.0-0.9 [facility] Work Phone: [phone] Cholesterol [Mass/Vol] 220 mg/dL <200 [facility] Work Phone: Comment on above: <200 mg/dL Desirable 200-240 mg/dL Borderline >240 mg/dL High Risk Triglyceride [Mass/Vol] 175 mg/dL <199 [facility] Work Phone: Comment on above: The drugs N-Acetylcy steine and Metamizole may falsely depress this assay.Serum Triglycerides Reference Interval Normal <150 mg/dL Borderline high 150 - 199 mg/dL High 200 - 499 mg/dL Very High > or = 500 mg/dL Erythrocyte sedimentation ra funmi 01-13-2022 ESR (Bld) [Velocity] 6 mm/h 0-30 [facility] Work Phone: HIV 1 and HIV-2 antibody ass ay with HIV-1 p24 antigen detectionon 01-13-2022 HIV 1+2 Ab+HIV1 p24 Ag IA Ql Non-Reactive Nonreactive [facility] Work Phone: [phone] INR in Blood by Coagulation assayon 01-13-2022 INR Coag (Bld) [Relative time] 1.0 {INR} [facility] Work Phone: [phone] Laboratory - Coagulationon 0 01-13-2022 PT Coag (PPP) [Time] 12.6 s 11.7-14.9 [facility] Work Phone: [phone] No Panel Informationon 01-13 Centromere B Antibody <0.2 AI 0.0-0.[address] [facility] Work Phone: [phone] Ceruloplasmin 22.7 mg/dL 19.0-39.0 [facility] Work Phone: [phone] Haptoglobin 142 mg/dL 33-278 [facility] Work Phone: [phone] Comment on above: Performed at: [facility] [address] [id number] Director: Viraj Sandoval PhD, Phone: [phone] at: [facility] [id number] Director: Emily Bacon MD, Phone: [phone] Hepatitis A IgM Antibody Negative Negative [facility] Work Phone: [phone] Hepatitis B Core IgM Antibody Negative Negative [facility] Work Phone: [phone] Hepatitis C Antibody (EIA) <0.1 s/co ratio 0.0-0.9 [facility] Work Phone: [phone] Hepatitis C Antibody Comment Comment . [facility] Work Phone: [phone] Comment on above: NegativeNot infected with HCV, unless recent infection issuspected or other evidence exists to indicate HCVinfection. [employer] FORMER Antibody 0.3 AI 0.0-0.9 [facility] Work Phone: [phone] Thyroid Stimulating Hormone (TSH) 0.59 uIU/mL 0.358-3.74 [facility] Work Phone: [phone] Serum DNA double strand anti body assay (units/volume)on 01-13-2022 DNA double strand Ab Qn (S) 1 [IU]/mL 0-9 [facility] Work Phone: [phone] Comment on above: Negative <5 Equivoca l 5 - 9 Positive >9 Serum Alise-1 antibody assay (u nits/volume)on 01-13-2022 Alise-1 extractable nuclear Ab Qn (S) <0.2 AI 0.0-0.9 [facility] Work Phone: Serum Scl-70 extractable nuc lear antibody assay (units/volume)on 01-13-2022 SCL-70 extractable nuclear Ab Qn (S) <0.2 AI 0.0-0.9 [facility] Work Phone: Serum Freedman extractable nucl ear antibody detectionon 01-13-2022 Freedman extractable nuclear Ab Ql (S) <0.2 AI 0.0-0.9 [facility] Work Phone: Serum classic neutrophil cyt oplasmic antibody assay (units/volume)on 01-13-2022 Neutrophil cytoplasmic Ab.classic Qn (S) <1:20 titer Neg:<1:20 [facility] Work Phone: Serum mitochondria antibody detectionon 01-13-2022 Mitochondria Ab Ql (S) <20.0 Units 0.0-20.0 [facility] Work Phone: Comment on above: Negative 0.0 - 20.0 Equivocal 20.1 - 24.9 Positive >24.9Mitochondrial (M2) Antibodies are found in 90-96% ofpatients with primary biliary cirrhosis.Performed at: [address] [id number] Director: Viraj Sandoval PhD, Phone: [phone] Serum or plasma C reactive p rotein measurement (mass/volume)on 01-13-2022 CRP [Mass/Vol] mg/L 0.0-3.0 [facility] Work Phone: Comment on above: C-Reactive Protein ( CRP) provides useful information for thediagnosis, therapy and monitoring of inflammatory processesand associated diseases. For the evaluation of Relative Riskfor Cardiovascular Disease, a High Sensitivity CRP (HSCRP)should be ordered. Serum or plasma actin IgG an tibody assay (units/volume)on 01-13-2022 Actin IgG Qn 5 Units 0-19 [facility] Work Phone: Comment on above: Negative 0 - 19 Weak positive 20 - 30 Moderate to strong positive >30 Actin Antibodies are found in 52-85% of patients with autoimmune hepatitis or chronic active hepatitis and in 22% of patients with primary biliary cirrhosis. Serum or plasma icths-0-yvni protein tumor marker measurement (units/volume)on 01-13-2022 AFP.tumor marker Qn 2.5 ng/mL 0.0-6.4 [facility] Work Phone: Comment on above: [facility] El ectrochemiluminescence Immunoassay(ECLIA)Values obtained with different assay methods or kits cannotbe used interchangeably. Results cannot be interpreted asabsolute evidence of the presence or absence of malignantdisease.This test is not interpretable in females. Serum or plasma angiotensin converting enzyme measurement (enzymatic activity/volume)on 01-13-2022 Angiotensin converting enzyme [Catalytic activity/Vol] 24 U/L 14-82 [facility] Work Phone: [phone] Serum or plasma cholesterol in HDL measurement (mass/volume)on 01-13-2022 Cholesterol in HDL [Mass/Vol] 42 mg/dL >40 [facility] Work Phone: [phone] Comment on above: The drugs N-Acetylcy steine and Metamizole may falsely depress this assay. Reference Range HDL <40 mg/dL Low HDL Cholesterol HDL >or= 60 mg/dL High HDL Cholesterol Serum or plasma cholesterol in VLDL measurement (mass/volume)on 01-13-2022 Cholesterol in VLDL [Mass/Vol] 35 mg/dL 5-40 [facility] Work Phone: [phone] Serum or plasma ferritin adriana surement (mass/volume)on 01-13-2022 Ferritin [Mass/Vol] 19 ng/mL 8-252 [facility] Work Phone: [phone] Serum or plasma hepatitis B virus surface antigen detection by immunoassayon 01-13-2022 HBV surface Ag IA Ql Negative Negative [facility] Work Phone: [phone] Serum or plasma low density lipoprotein (LDL) cholesterol measurement (mass/volume)on 01-13-2022 Cholesterol in LDL [Mass/Vol] 143 mg/dL 0-130 [facility] Work Phone: [phone] Serum perinuclear neutrophil cytoplasmic antibody titer by immunofluorescenceon 01-13-2022 Neutrophil cytoplasmic Ab.perinuclear IF (S) [Titer] <1:20 titer Neg:<1:20 [facility] Work Phone: Comment on above: The presence of posi tive fluorescence exhibiting P-ANCA orC-ANCA patterns alone is not specific for the diagnosis ofWegener's Granulomatosis (WG) or microscopic polyangiitis.Decisions about treatment should not be based solely onANCA IFA results. The [employer] Consensusrecommends follow up testing of positive sera with both MS-3 and MPO-ANCA enzyme immunoassays. As many as 5% serumsamples are positive only by EIA. Ref. AM J Clin [id number];111:507-513. Thin prep Papanicolaou smear with manual screeningon 01-13-2022 Thin prep Papanicolaou smear with manual screening 164 U/L 84-246 [facility] Work Phone: Thin prep Papanicolaou smear with manual screening 109 ug/dL 80-158 [facility] Work Phone: Comment on above: Detection Limit = 5 Whole blood hemoglobin A1c/t otal hemoglobin ratio (mass fraction)on 01-13-2022 HbA1c (Bld) [Mass fraction] 5.4 % 3.8-5.6 [facility] Work Phone: Comment on above: Normal < 5.7 % Predi abetic 5.7 - 6.4 % Diabetic >or= 6.5 % Please note range changes. No Panel Informationon 01-03 Stool Neutral Fats Normal . [facility] Work Phone: Comment on above: Normal (<60 Droplets /HPF) Stool Pancreatic Elastase > 500 >200 [facility] Work Phone: Comment on above: Result Units: ug Pooja st./g Severe Pancreatic Insufficiency: <100 Moderate Pancreatic Insufficiency: 100 - 200 Normal: >200Performed at: - [facility] [address] [id number] Director: Emily Bacon MD, Phone: [phone] Qualitative fecal fat or lip idson 01-03-2022 Fat Ql (Stl) Normal . [facility] Work Phone: Comment on above: Normal (<100 Droplet s/HPF)Performed at: [address] [id number] Director: Viraj Sandoval PhD, Phone: [phone] Absolute lymphocyte counton 12-23-2021 Lymphocytes Auto (Unsp spec) [#/Vol] 2.19 10*3/uL 0.83-4.51 [facility] Work Phone: Basophil percentageon 2021 Basophils/100 WBC (Bld) 0.5 % 0-1 [facility] Work Phone: Bilirubin [Mass/Vol] 0.30 mg/dL 0.20-1.00 [facility] Work Phone: Comment on above: For patients on eltr ombopag therapy, use of Dimension Bowman TBIL is not recommended. Chloride [Moles/Vol] 106 mmol/L 98-107 [facility] Work Phone: Eosinophils/100 WBC (Bld) 4.8 % 0-5 [facility] Work Phone: Glucose [Mass/Vol] 111 mg/dL 74-[address] [facility] Work Phone: Comment on above: Fasting Glucose resu lt from 100 to 125 mg/dL suggests IMPAIRED HOMEOSTASIS per A.D.A. criteria. Neutrophils (Bld) [#/Vol] 3.0 10*3/uL 2.0-7.7 [facility] Work Phone: Neutrophils/100 WBC (Bld) 49.1 % 47-70 [facility] Work Phone: Potassium [Moles/Vol] 3.5 mmol/L 3.5-5.[address] [facility] Work Phone: Protein [Mass/Vol] 7.5 g/dL 6.4-8.[address] [facility] Work Phone: Sodium [Moles/Vol] 138 mmol/L 136-[address] [facility] Work Phone: WBC (Bld) [#/Vol] 6.1 10*3/uL 4.4-11.0 [place] [facility] Work Phone: Basophil percentage 0-5 SEEN /hpf 0-5 [place] [facility] Work Phone: Beta hCG serum qualon 2021 Beta HCG ( test) Ql Negative [facility] Work Phone: Bilirubin Test strip Ql (U)o n 12-23-2021 Bilirubin Ql (U) Negative Negative [facility] Work Phone: Blood erythrocytes count (nu mber/volume)on 12-23-2021 RBC (Bld) [#/Vol] 4.87 10*6/uL 4.2-5.4 [facility] Work Phone: Blood hemoglobin measurement (mass/volume)on 12-23-2021 Hemoglobin (Bld) [Mass/Vol] 13.7 g/dL 12.0-15.0 [facility] Work Phone: Blood lymphocytes/100 leukoc yteson 12-23-2021 Lymphocytes/100 WBC (Bld) 36.1 % 19-41 [facility] Work Phone: Blood monocytes/100 leukocyt eson 12-23-2021 Monocytes/100 WBC (Bld) 9.2 % 0-10 [facility] Work Phone: Blood platelet mean volumeon 12-23-2021 Platelet mean volume (Bld) [Entitic vol] 11.1 fL 6.2-12.0 [facility] Work Phone: Determination of erythrocyte mean corpuscular volume (MCV)on 12-23-2021 MCV (RBC) [Entitic vol] 87.5 fL 81-99 [facility] Work Phone: Hematocrit Auto (Bld) [Volum e fraction]on 12-23-2021 Hematocrit (Bld) [Volume fraction] 42.6 % 37-47 [facility] Work Phone: Ketones Test strip Ql (U)on 12-23-2021 Ketones Ql (U) Negative Negative [facility] Work Phone: [phone] Laboratory - Chemistry and C hemistry - challengeon 12-23-2021 ALP [Catalytic activity/Vol] 54 U/L 45-117 [facility] Work Phone: [phone] ALT [Catalytic activity/Vol] 19 U/L 13-56 [facility] Work Phone: [phone] CO2 [Moles/Vol] 27.0 mmol/L 21.0-32.0 [facility] Work Phone: [phone] Globulin (S) [Mass/Vol] 3.6 g/dL 2.2-4.2 [facility] Work Phone: [phone] Lipase [Catalytic activity/Vol] 98 U/L 73-393 [facility] Work Phone: [phone] Urea nitrogen/Creatinine [Mass ratio] 11.9 mg/mg 10-20 [facility] Work Phone: [phone] Laboratory - Hematology and Cell countson 12-23-2021 Erythrocyte distribution width (RBC) [Entitic vol] 42.2 fL 35.1-43.9 [facility] Work Phone: [phone] Erythrocyte distribution width (RBC) [Ratio] 13.3 % 11.6-14.6 [facility] Work Phone: [phone] Immature granulocytes/100 WBC (Bld) 0.300 % 0.0-0.9 [facility] Work Phone: [phone] Comment on above: IG% - Immature Granu locytes (promyelocytes, myelocytes and metamyelocytes) > 1% indicates that a LEFT SHIFT is Present. MCH (RBC) [Entitic mass] 28.1 pg 27.0-32.0 [facility] Work Phone: [phone] Nucleated RBC/100 WBC (Bld) [Ratio] 0 % 0-5 [facility] Work Phone: [phone] MCHC Auto (RBC) [Mass/Vol]on 12-23-2021 MCHC (RBC) [Mass/Vol] 32.2 g/dL 32-[address] [facility] Work Phone: Mucus LM Ql (Urine sed)on Mucus Ql (Urine sed) 0 SEEN /hpf [facility] Work Phone: Nitrite Test strip Ql (U)on 12-23-2021 Nitrite Ql (U) Negative Negative [facility] Work Phone: No Panel Informationon 12-23 Estimated Creatinine Clearance Calc 88.34 ml/min [facility] Work Phone: [phone] Estimated GFR (MDRD) Amer 100 mL/min >60 [facility] Work Phone: [phone] Comment on above: GFR Calc Estimated GFR (MDRD) Non-Af Amer 83 mL/min >60 [facility] Work Phone: Comment on above: Non- GFR Calc Platelets bldon 12-23-2021 Platelets (Bld) [#/Vol] 184 10*3/uL 150-450 [facility] Work Phone: Protein Test strip Ql (U)on 12-23-2021 Protein Ql (U) Negative Negative [facility] Work Phone: [phone] Serum or plasma albumin mg urement (mass/volume)on 12-23-2021 Albumin [Mass/Vol] 3.9 g/dL 3.2-5.[address] [facility] Work Phone: [phone] Serum or plasma albumin/glob ulin mass ratioon 12-23-2021 Albumin/Globulin [Mass ratio] 1.1 {ratio} 0.9-2.4 [facility] Work Phone: [phone] Serum or plasma calcium mg urement (mass/volume)on 12-23-2021 Calcium [Mass/Vol] 9.2 mg/dL 8.5-10.[address] [facility] Work Phone: [phone] Serum or plasma creatinine m easurement (mass/volume)on 12-23-2021 Creatinine [Mass/Vol] 0.84 mg/dL 0.55-1.[address] [facility] Work Phone: Comment on above: The validity of the calculated GFR & GFRAA in patients over 70 years has not been determined. Clinical correlation is essential. Serum or plasma urea nitroge n measurement (mass/volume)on 12-23-2021 Urea nitrogen [Mass/Vol] 10 mg/dL 7-18 [facility] Work Phone: [phone] Squamous epithelial cells de tection in urine sediment by light microscopyon 12-23-2021 Epithelial cells.squamous LM Ql (Urine sed) 0-5 SEEN /hpf 5-10 [facility] Work Phone: Thin prep Papanicolaou smear with manual screeningon 12-23-2021 Thin prep Papanicolaou smear with manual screening 11 U/L 15-37 [facility] Work Phone: [phone] Thin prep Papanicolaou smear with manual screening 5 5-15 [facility] Work Phone: Urine blood detectionon RBC Ql (U) Negative Negative [facility] Work Phone: [phone] RBC Ql (U) 0-5 SEEN /hpf 0-5 [facility] Work Phone: [phone] Urine clarityon 12-23-2021 Clarity (U) Clear Clear [facility] Work Phone: Urine color determinationon 12-23-2021 Color (U) Yellow Yellow [facility] Work Phone: Urine glucose detectionon Glucose Ql (U) Normal mg/dl Normal [facility] Work Phone: [phone] Urine leukocyte esterase det ection by dipstickon 12-23-2021 Leukocyte esterase Test strip Ql (U) Negative Negative [facility] Work Phone: [phone] Urine pHon 12-23-2021 pH (U) 6.0 [pH] 5.0 - 8.0 [facility] Work Phone: [phone] Urine sediment bacteria coun t by microscopy (number/high power field)on 12-23-2021 Bacteria LM.HPF (Urine sed) [#/Area] 1 /[HPF] None Seen [facility] Work Phone: Urine specific gravity measu rementon 12-23-2021 Specific gravity (U) [Rel density] 1.020 1.002-1.030 [facility] Work Phone: Urobilinogen Auto test strip Ql (U)on 12-23-2021 Urobilinogen Ql (U) Normal mg/dl Normal [facility] Work Phone: Absolute lymphocyte counton 11-27-2021 Lymphocytes Auto (Unsp spec) [#/Vol] 1.49 10*3/uL 0.83-4.51 [facility] Work Phone: Basophil percentageon 2021 Basophils/100 WBC (Bld) 0.3 % 0-1 [facility] Work Phone: Chloride [Moles/Vol] 105 mmol/L 98-107 [facility] Work Phone: Eosinophils/100 WBC (Bld) 2.8 % 0-5 [facility] Work Phone: Glucose [Mass/Vol] 120 mg/dL 74-[address] [facility] Work Phone: Comment on above: Fasting Glucose resu lt from 100 to 125 mg/dL suggests IMPAIRED HOMEOSTASIS per A.D.A. criteria. Neutrophils (Bld) [#/Vol] 3.5 10*3/uL 2.0-7.7 [facility] Work Phone: Neutrophils/100 WBC (Bld) 60.9 % 47-70 [facility] Work Phone: Potassium [Moles/Vol] 4.4 mmol/L 3.5-5.[address] [facility] Work Phone: Comment on above: Moderate Hemolysis, Result may be falsely increased. Sodium [Moles/Vol] 138 mmol/L 136-[address] [facility] Work Phone: WBC (Bld) [#/Vol] 5.8 10*3/uL 4.4-11.[address] [facility] Work Phone: Blood erythrocytes count (nu mber/volume)on 11-27-2021 RBC (Bld) [#/Vol] 4.59 10*6/uL 4.2-5.4 [facility] Work Phone: [phone] Blood hemoglobin measurement (mass/volume)on 11-27-2021 Hemoglobin (Bld) [Mass/Vol] 12.8 g/dL 12.0-15.0 [facility] Work Phone: [phone] Blood lymphocytes/100 leukoc yteson 11-27-2021 Lymphocytes/100 WBC (Bld) 25.8 % 19-41 [facility] Work Phone: [phone] Blood monocytes/100 leukocyt eson 11-27-2021 Monocytes/100 WBC (Bld) 9.9 % 0-10 [facility] Work Phone: [phone] Blood platelet mean volumeon 11-27-2021 Platelet mean volume (Bld) [Entitic vol] 11.4 fL 6.2-12.0 [facility] Work Phone: [phone] Determination of erythrocyte mean corpuscular volume (MCV)on 11-27-2021 MCV (RBC) [Entitic vol] 86.9 fL 81-99 [facility] Work Phone: [phone] Hematocrit Auto (Bld) [Volum e fraction]on 11-27-2021 Hematocrit (Bld) [Volume fraction] 39.9 % 37-47 [facility] Work Phone: [phone] Laboratory - Chemistry and C hemistry - challengeon 11-27-2021 CO2 [Moles/Vol] 30.0 mmol/L 21.0-32.0 [facility] Work Phone: [phone] Magnesium [Mass/Vol] 1.9 mg/dL 1.6-2.6 [facility] Work Phone: [phone] Comment on above: Moderate Hemolysis, Result may be falsely increased. Urea nitrogen/Creatinine [Mass ratio] 9.8 mg/mg 10-20 [facility] Work Phone: [phone] Laboratory - Hematology and Cell countson 11-27-2021 Erythrocyte distribution width (RBC) [Entitic vol] 41.5 fL 35.1-43.9 [facility] Work Phone: Erythrocyte distribution width (RBC) [Ratio] 13.2 % 11.6-14.6 [facility] Work Phone: [phone] Immature granulocytes/100 WBC (Bld) 0.300 % 0.0-0.9 [facility] Work Phone: [phone] Comment on above: IG% - Immature Granu locytes (promyelocytes, myelocytes and metamyelocytes) > 1% indicates that a LEFT SHIFT is Present. MCH (RBC) [Entitic mass] 27.9 pg 27.0-32.0 [facility] [facility] Work Phone: Nucleated RBC/100 WBC (Bld) [Ratio] 0 % 0-5 [facility] Work Phone: [phone] MCHC Auto (RBC) [Mass/Vol]on 11-27-2021 MCHC (RBC) [Mass/Vol] 32.1 g/dL 32-[address] [facility] Work Phone: No Panel Informationon 11-27 Estimated Creatinine Clearance Calc 90.50 ml/min [facility] Work Phone: Estimated GFR (MDRD) Amer 102 mL/min >60 [facility] Work Phone: Comment on above: GFR Calc Estimated GFR (MDRD) Non-Af Amer 85 mL/min >60 [facility] Work Phone: Comment on above: Non- GFR Calc Thyroid Stimulating Hormone (TSH) 4.97 uIU/mL 0.358-3.74 [facility] Work Phone: Platelets bldon 11-27-2021 Platelets (Bld) [#/Vol] 168 10*3/uL 150-450 [facility] Work Phone: Serum or plasma calcium mg urement (mass/volume)on 11-27-2021 Calcium [Mass/Vol] 8.9 mg/dL 8.5-10.[address] [facility] Work Phone: Serum or plasma creatinine m easurement (mass/volume)on 11-27-2021 Creatinine [Mass/Vol] 0.82 mg/dL 0.55-1.[address] [facility] Work Phone: Comment on above: The validity of the calculated GFR & GFRAA in patients over 70 years has not been determined. Clinical correlation is essential. Serum or plasma urea nitroge n measurement (mass/volume)on 11-27-2021 Urea nitrogen [Mass/Vol] 8 mg/dL 7-18 [facility] Work Phone: Thin prep Papanicolaou smear with manual screeningon 11-27-2021 Thin prep Papanicolaou smear with manual screening 3 5-15 [facility] Work Phone: Absolute lymphocyte counton 08-20-2021 Lymphocytes Auto (Unsp spec) [#/Vol] 1.34 10*3/uL 0.83-4.51 [facility] Work Phone: Basophil percentageon 2021 Basophil percentage 0 SEEN /hpf 0-5 [facility] Work Phone: Basophils/100 WBC (Bld) 0.8 % 0-1 [facility] Work Phone: Bilirubin [Mass/Vol] 0.30 mg/dL 0.20-1.00 [facility] Work Phone: Comment on above: For patients on eltr ombopag therapy, use of Dimension Bowman TBIL is not recommended. Chloride [Moles/Vol] 107 mmol/L 98-107 [facility] Work Phone: Eosinophils/100 WBC (Bld) 2.8 % 0-5 [facility] Work Phone: Glucose [Mass/Vol] 87 mg/dL 74-[address] [facility] Work Phone: Neutrophils (Bld) [#/Vol] 3.0 10*3/uL 2.0-7.7 [facility] Work Phone: Neutrophils/100 WBC (Bld) 59.5 % 47-70 [facility] Work Phone: Potassium [Moles/Vol] 3.8 mmol/L 3.5-5.1 [facility] Work Phone: Protein [Mass/Vol] 7.9 g/dL 6.4-8.2 [facility] Work [facility]: Sodium [Moles/Vol] 137 mmol/L 136-145 [facility] Work Phone: WBC (Bld) [#/Vol] 5.0 10*3/uL 4.4-11.0 [facility] Work Phone: Beta hCG serum qualon 2021 Beta HCG ( test) Ql Negative [facility] Work Phone: Bilirubin Test strip Ql (U)o n 08-20-2021 Bilirubin Ql (U) Negative Negative [facility] Work Phone: Blood erythrocytes count (nu mber/volume)on 08-20-2021 RBC (Bld) [#/Vol] 5.32 10*6/uL 4.2-5.4 [facility]: Blood hemoglobin measurement (mass/volume)on 08-20-2021 Hemoglobin (Bld) [Mass/Vol] 14.6 g/dL 12.0-15.0 [facility] Work Phone: Blood lymphocytes/100 leukoc yteson 08-20-2021 Lymphocytes/100 WBC (Bld) 27.0 % 19-41 [facility] Work Phone: Blood monocytes/100 leukocyt eson 08-20-2021 Monocytes/100 WBC (Bld) 9.7 % 0-10 [facility] Work Phone: Blood platelet mean volumeon 08-20-2021 Platelet mean volume (Bld) [Entitic vol] 11.4 fL 6.2-12.0 [facility] Work Phone: Determination of erythrocyte mean corpuscular volume (MCV)on 08-20-2021 MCV (RBC) [Entitic vol] 84.2 fL 81-99 [facility] Work Phone: [phone] Hematocrit Auto (Bld) [Volum e fraction]on 08-20-2021 Hematocrit (Bld) [Volume fraction] 44.8 % 37-47 [facility] Work Phone: [phone] Ketones Test strip Ql (U)on 08-20-2021 Ketones Ql (U) Negative Negative [facility] Work Phone: [phone] Laboratory - Chemistry and C hemistry - challengeon 08-20-2021 ALP [Catalytic activity/Vol] 65 U/L 45-117 [facility] Work Phone: [phone] ALT [Catalytic activity/Vol] 30 U/L 13-56 [facility] Work Phone: [phone] CO2 [Moles/Vol] 26.0 mmol/L 21.0-32.0 [facility] Work Phone: [phone] Globulin (S) [Mass/Vol] 3.8 g/dL 2.2-4.2 [facility] Work Phone: [phone] Lipase [Catalytic activity/Vol] 119 U/L 73-393 [facility] Work Phone: [phone] Urea nitrogen/Creatinine [Mass ratio] 7.6 mg/mg 10-20 [facility] Work Phone: [phone] Laboratory - Hematology and Cell countson 08-20-2021 Erythrocyte distribution width (RBC) [Entitic vol] 41.4 fL 35.1-43.9 [facility] Work Phone: [phone] Erythrocyte distribution width (RBC) [Ratio] 13.5 % 11.6-14.6 [facility] Work Phone: [phone] Immature granulocytes/100 WBC (Bld) 0.200 % 0.0-0.9 [facility] Work Phone: [phone] Comment on above: IG% - Immature Granu locytes (promyelocytes, myelocytes and metamyelocytes) > 1% indicates that a LEFT SHIFT is Present. MCH (RBC) [Entitic mass] 27.4 pg 27.0-32.0 [facility] Work Phone: Nucleated RBC/100 WBC (Bld) [Ratio] 0 % 0-5 [facility] Work Phone: MCHC Auto (RBC) [Mass/Vol]on 08-20-2021 MCHC (RBC) [Mass/Vol] 32.6 g/dL 32-[address] [facility] Work Phone: Mucus LM Ql (Urine sed)on Mucus Ql (Urine sed) 0 SEEN /hpf [facility] Work Phone: Nitrite Test strip Ql (U)on 08-20-2021 Nitrite Ql (U) Negative Negative [facility] Work Phone: No Panel Informationon 08-20 Estimated Creatinine Clearance Calc 93.93 ml/min [facility] Work Phone: [phone] Estimated GFR (MDRD) Amer 106 mL/min >60 [facility] Work Phone: [phone] Comment on above: GFR Calc Estimated GFR (MDRD) Non-Af Amer 88 mL/min >60 [facility] Work Phone: Comment on above: Non- GFR Calc Platelets bldon 08-20-2021 Platelets (Bld) [#/Vol] 183 10*3/uL 150-450 [facility] Work Phone: [phone] Protein Test strip Ql (U)on 08-20-2021 Protein Ql (U) Negative Negative [facility] Work Phone: [phone] Serum or plasma albumin mg urement (mass/volume)on 08-20-2021 Albumin [Mass/Vol] 4.1 g/dL 3.2-5.[address] [facility] Work Phone: [phone] Serum or plasma albumin/glob ulin mass ratioon 08-20-2021 Albumin/Globulin [Mass ratio] 1.1 {ratio} 0.9-2.4 [facility] Work Phone: [phone] Serum or plasma calcium mg urement (mass/volume)on 08-20-2021 Calcium [Mass/Vol] 9.2 mg/dL 8.5-10.[address] [facility] Work Phone: Serum or plasma creatinine m easurement (mass/volume)on 08-20-2021 Creatinine [Mass/Vol] 0.79 mg/dL 0.55-1.[address] [facility] Work Phone: Comment on above: The validity of the calculated GFR & GFRAA in patients over 70 years has not been determined. Clinical correlation is essential. Serum or plasma urea nitroge n measurement (mass/volume)on 08-20-2021 Urea nitrogen [Mass/Vol] 6 mg/dL 7-18 [facility] Work Phone: Squamous epithelial cells de tection in urine sediment by light microscopyon 08-20-2021 Epithelial cells.squamous LM Ql (Urine sed) 5-10 SEEN /hpf 5-10 [facility] Work Phone: Thin prep Papanicolaou smear with manual screeningon 08-20-2021 Thin prep Papanicolaou smear with manual screening 14 U/L 15-37 [facility] Work Phone: Thin prep Papanicolaou smear with manual screening 4 5-15 [facility] Work Phone: Urine blood detectionon 04-0 RBC Ql (U) Negative Negative [facility] Work Phone: RBC Ql (U) 0 SEEN /hpf 0-5 [facility] Work Phone: Urine clarityon 08-20-2021 Clarity (U) Clear Clear [facility] Work Phone: Urine color determinationon 08-20-2021 Color (U) Yellow Yellow [facility] Work Phone: [phone] Urine glucose detectionon Glucose Ql (U) Normal mg/dl Normal [facility] Work Phone: [phone] Urine leukocyte esterase det ection by dipstickon 08-20-2021 Leukocyte esterase Test strip Ql (U) Negative Negative [facility] Work Phone: Urine pHon 08-20-2021 pH (U) 6.0 [pH] 5.0 - 8.0 [facility] Work Phone: [phone] Urine sediment bacteria coun t by microscopy (number/high power field)on 08-20-2021 Bacteria LM.HPF (Urine sed) [#/Area] 0 /[HPF] None Seen [facility] Work Phone: [phone] Urine specific gravity measu rementon 08-20-2021 Specific gravity (U) [Rel density] 1.015 1.002-1.030 [facility] Work Phone: [phone] Urobilinogen Auto test strip Ql (U)on 08-20-2021 Urobilinogen Ql (U) Normal mg/dl Normal [facility] Work Phone: [phone] No Panel Informationon 08-11 Thyroid Stimulating Hormone (TSH) 2.44 uIU/mL 0.358-3.74 [facility] Work Phone: Absolute lymphocyte counton 06-08-2021 Lymphocytes Auto (Unsp spec) [#/Vol] 1.22 10*3/uL 0.83-4.51 [facility] Work Phone: [phone] Basophil percentageon 2021 Basophils/100 WBC (Bld) 0.6 % 0-1 [facility] Work Phone: [phone] Bilirubin [Mass/Vol] 0.40 mg/dL 0.20-1.00 [facility] Work Phone: [phone] Comment on above: For patients on eltr ombopag therapy, use of Dimension Bowman TBIL is not recommended. Chloride [Moles/Vol] 103 mmol/L 98-107 [facility] Work Phone: [phone] Eosinophils/100 WBC (Bld) 3.3 % 0-5 [facility] Work Phone: [phone] Glucose [Mass/Vol] 102 mg/dL 74-[address] [facility] Work Phone: Comment on above: Fasting Glucose resu lt from 100 to 125 mg/dL suggests IMPAIRED HOMEOSTASIS per A.D.A. criteria. Neutrophils (Bld) [#/Vol] 3.0 10*3/uL 2.0-7.7 [facility] Work Phone: Neutrophils/100 WBC (Bld) 62.1 % 47-70 [facility] Work Phone: Potassium [Moles/Vol] 3.9 mmol/L 3.5-5.[address] [facility] Work Phone: Protein [Mass/Vol] 7.3 g/dL 6.4-8.[address] [facility] Work Phone: Sodium [Moles/Vol] 139 mmol/L 136-[address] [facility] Work Phone: WBC (Bld) [#/Vol] 4.9 10*3/uL 4.4-11.[address] [facility] Work Phone: Blood erythrocytes count (nu mber/volume)on 06-08-2021 RBC (Bld) [#/Vol] 5.20 10*6/uL 4.2-5.4 [facility] Work Phone: Blood hemoglobin measurement (mass/volume)on 06-08-2021 Hemoglobin (Bld) [Mass/Vol] 14.3 g/dL 12.0-15.0 [facility] Work Phone: Blood lymphocytes/100 leukoc yteson 06-08-2021 Lymphocytes/100 WBC (Bld) 25.0 % 19-41 [facility] Work Phone: Blood monocytes/100 leukocyt eson 06-08-2021 Monocytes/100 WBC (Bld) 8.6 % 0-10 [facility] Work Phone: Blood platelet mean volumeon 06-08-2021 Platelet mean volume (Bld) [Entitic vol] 11.4 fL 6.2-12.0 [facility] Work Phone: Determination of erythrocyte mean corpuscular volume (MCV)on 06-08-2021 MCV (RBC) [Entitic vol] 84.0 fL 81-99 [facility] Work Phone: [phone] Hematocrit Auto (Bld) [Volum e fraction]on 06-08-2021 Hematocrit (Bld) [Volume fraction] 43.7 % 37-47 [facility] Work Phone: [phone] Laboratory - Chemistry and C hemistry - challengeon 06-08-2021 ALP [Catalytic activity/Vol] 65 U/L 45-117 [facility] Work Phone: [phone] ALT [Catalytic activity/Vol] 51 U/L 13-56 [facility] Work Phone: [phone] CO2 [Moles/Vol] 30.0 mmol/L 21.0-32.0 [facility] Work Phone: [phone] Globulin (S) [Mass/Vol] 3.7 g/dL 2.2-4.2 [facility] Work Phone: [phone] Urea nitrogen/Creatinine [Mass ratio] 12.5 mg/mg 10-20 [facility] Work Phone: [phone] Laboratory - Hematology and Cell countson 06-08-2021 Erythrocyte distribution width (RBC) [Entitic vol] 40.0 fL 35.1-43.9 [facility] Work Phone: [phone] Erythrocyte distribution width (RBC) [Ratio] 13.0 % 11.6-14.6 [facility] Work Phone: [phone] Immature granulocytes/100 WBC (Bld) 0.400 % 0.0-0.9 [facility] Work Phone: [phone] Comment on above: IG% - Immature Granu locytes (promyelocytes, myelocytes and metamyelocytes) > 1% indicates that a LEFT SHIFT is Present. MCH (RBC) [Entitic mass] 27.5 pg 27.0-32.0 [facility] Work Phone: [phone] Nucleated RBC/100 WBC (Bld) [Ratio] 0 % 0-5 [facility] Work Phone: [phone] MCHC Auto (RBC) [Mass/Vol]on 06-08-2021 MCHC (RBC) [Mass/Vol] 32.7 g/dL 32-[address] [facility] Work Phone: No Panel Informationon 06-08 Thyroid Stimulating Hormone (TSH) 0.30 uIU/mL 0.358-3.74 [facility] Work Phone: [phone] Estimated GFR (MDRD) Amer 119 mL/min >60 [facility] Work Phone: [phone] Comment on above: GFR Calc Estimated GFR (MDRD) Non-Af Amer 99 mL/min >60 [facility] Work Phone: [phone] Comment on above: Non- GFR Calc Vitamin D 25-Hydroxy 16.2 ng/mL [facility] Work Phone: [phone] Comment on above: Vitamin D 25(OH) Sta tus Range Deficiency <20 ng/mL (50nmol/L) Insufficiency 20 - 30 ng/mL (50 - 75 nmol/L) Sufficiency 30 - 100 ng/mL (75 - 250 nmol/L) Toxicity >100 ng/mL (>250 nmol/L) Platelets bldon 06-08-2021 Platelets (Bld) [#/Vol] 178 10*3/uL 150-450 [facility] Work Phone: [phone] Serum or plasma albumin mg urement (mass/volume)on 06-08-2021 Albumin [Mass/Vol] 3.6 g/dL 3.2-5.[address] [facility] Work Phone: [phone] Serum or plasma albumin/glob ulin mass ratioon 06-08-2021 Albumin/Globulin [Mass ratio] 1.0 {ratio} 0.9-2.4 [facility] Work Phone: [phone] Serum or plasma calcium mg urement (mass/volume)on 06-08-2021 Calcium [Mass/Vol] 8.7 mg/dL 8.5-10.[address] [facility] Work Phone: [phone] Serum or plasma creatinine m easurement (mass/volume)on 06-08-2021 Creatinine [Mass/Vol] 0.72 mg/dL 0.55-1.[address] [facility] Work Phone: Comment on above: The validity of the calculated GFR & GFRAA in patients over 70 years has not been determined. Clinical correlation is essential. Serum or plasma urea nitroge n measurement (mass/volume)on 06-08-2021 Urea nitrogen [Mass/Vol] 9 mg/dL 7-18 [facility] Work Phone: Thin prep Papanicolaou smear with manual screeningon 06-08-2021 Thin prep Papanicolaou smear with manual screening 25 U/L 15-37 [facility] Work Phone: Thin prep Papanicolaou smear with manual screening 6 5-15 [facility] Work Phone: SARS coronavirus RNA [Presen ce] in Unspecified specimen by JONE with probe detectionon 05-24-2021 SARS-CoV RNA JONE+probe Ql (Unsp spec) Not detected Not Detected [facility] Work Phone: Comment on above: This nucleic acid am plification test was developed and itsperformance characteristics determined by [facility]. Nucleic acid amplification tests include RT-PCR and TMA. This test has not been FDA cleared orapproved. This test has been authorized by FDA under anEmergency Use Authorization (EUA). This test is onlyauthorized for the duration of time the declaration thatcircumstances exist justifying the authorization of theemergency use of in vitro diagnostic tests for detection [id number] virus and/or diagnosis of COVID-19 infectionunder section 564(b)(1) of the Act, 21 U.S.C. 360bbb-3(b)(1), unless the authorization is terminated or revokedsooner.When diagnostic testing is negative, the possibility of afalse negative result should be considered in the contextof a patient's recent exposures and the presence ofclinical signs and symptoms consistent with COVID-19. Anindividual without symptoms of COVID-19 and who is notshedding SARS-CoV-2 virus would expect to have a negative(not detected) result in this assay. XR Shoulder - left 3 Viewson 12-31-2020 IMPRESSION: No acute osseous abnormality identified. Dental Laboratory Assistant: PSCB Transcribe Date/Time: Dec 31 2020 1:18P Dictated by : ADE MELÉNDEZ MD This examination was interpreted and the report reviewed and electronically signed by: ADE MELÉNDEZ MD on Dec 31 2020 1:20PM [facility] [[email or web address] DIVISION OF RADIOLOGY * * *Final Report* * * DATE OF EXAM: Dec 31 2020 1:11PM WOX 5252 - XR SHLDR >/=3V AP/AZIZA AP/OTHR LT / PROCEDURE REASON: Acute pain of left shoulder * * * * Physician Interpretation * * * * Left shoulder radiographs HISTORY: 35 years old Clinical information: Acute pain of left shoulder Chronic posterior and top of the left shoulder pain that has increased over the last 2 weeks without injury TECHNIQUE: Images: XR SHLDR >/=3V AP/AZIZA AP/OTHR LT Comparison: None. RESULT: Findings: Glenohumeral joint space is maintained. Mild flaring of the lateral clavicle. No fracture or dislocation. No soft tissue abnormality identified. DIVISION OF RADIOLOGY Provider, [facility] - 12/31/2020 * * *Final Report* * * DATE OF EXAM: Dec 31 2020 1:11PM WOX 5252 - XR SHLDR >/=3V AP/AZIZA AP/OTHR LT / PROCEDURE REASON: Acute pain of left shoulder * * * * Physician Interpretation * * * * Left shoulder radiographs HISTORY: 35 years old Clinical information: Acute pain of left shoulder Chronic posterior and top of the left shoulder pain that has increased over the last 2 weeks without injury TECHNIQUE: Images: XR SHLDR >/=3V AP/AZIZA AP/OTHR LT Comparison: None. RESULT: Findings: Glenohumeral joint space is maintained. Mild flaring of the lateral clavicle. No fracture or dislocation. No soft tissue abnormality identified. IMPRESSION IMPRESSION: No acute osseous abnormality identified. Dental Laboratory Assistant: PSCB Transcribe Date/Time: Dec 31 2020 1:18P Dictated by : ADE MELÉNDEZ MD This examination was interpreted and the report reviewed and electronically signed by: ADE MELÉNDEZ MD on Dec 31 2020 1:20PM [facility] Radiology Study observation (narrative) [facility] [employer] XR Shoulder - left 3 ViewsOr dered By: Ccf Provider on 12-31-[address] [facility] XR Chest PA and Lateralon IMPRESSION: No acute radiographic abnormality. Dental Laboratory Assistant: ANA Transcribe Date/Time: Jun 25 2020 3:58P Dictated by : JOSHUA CLARK MD This examination was interpreted and the report reviewed and electronically signed by: JOSHUA CLARK MD on Jun 25 2020 3:59PM [facility] [[email or web address]] DIVISION OF RADIOLOGY * * *Final Report* * * DATE OF EXAM: Jun 25 2020 3:50PM WOX 5291 - XR CHEST 2V FRONTAL/LAT / PROCEDURE REASON: Bronchitis * * * * Physician Interpretation * * * * EXAMINATION: CHEST RADIOGRAPH (2 VIEW FRONTAL & LATERAL) CLINICAL HISTORY: Bronchitis MQ: XC2_6 EXAM DATE/TIME: 06/25/2020 3:50 PM COMPARISON: Chest x-ray dated July 29, 2019 RESULT: Lines, tubes, and devices: None. Lungs and pleura: No consolidation. Stable tenting of the lateral right hemidiaphragm. No pleural effusion. No pneumothorax. Cardiomediastinal silhouette: Normal cardiomediastinal silhouette. Bones and soft tissues: Unremarkable. DIVISION OF RADIOLOGY Provider, Cherelle Tyler nunes [place] - 06/25/2020 * * *Final Report* * * DATE OF EXAM: Jun 25 2020 3:50PM WOX 5291 - XR CHEST 2V FRONTAL/LAT / PROCEDURE REASON: Bronchitis * * * * Physician Interpretation * * * * EXAMINATION: CHEST RADIOGRAPH (2 VIEW FRONTAL & LATERAL) CLINICAL HISTORY: Bronchitis MQ: XC2_6 EXAM DATE/TIME: 06/25/2020 3:50 PM COMPARISON: Chest x-ray dated July 29, 2019 RESULT: Lines, tubes, and devices: None. Lungs and pleura: No consolidation. Stable tenting of the lateral right hemidiaphragm. No pleural effusion. No pneumothorax. Cardiomediastinal silhouette: Normal cardiomediastinal silhouette. Bones and soft tissues: Unremarkable. IMPRESSION IMPRESSION: No acute radiographic abnormality. Dental Laboratory Assistant: ANA Transcribe Date/Time: Jun 25 2020 3:58P Dictated by : JOSHUA CLARK MD This examination was interpreted and the report reviewed and electronically signed by: JOSHUA CLARK MD on Jun 25 2020 3:59PM EST [facility] Radiology Study observation (narrative) [facility] XR Chest PA and LateralOrder ed By: [facility] Provider on 06-25-[address] [facility] Office Visit: OB Routineon 1 06-19-2016 Documentation of current medications (procedure) Done Invalid Interpretation Code [facility] Urine, glucose presence N Invalid Interpretation Code [facility] Urine, protein N Invalid Interpretation Code [facility] Office Visit: OB Routineon 1 06-10-2016 Documentation of current medications (procedure) Done Invalid Interpretation Code [facility] Urine, glucose presence N Invalid Interpretation Code [facility] Urine, protein N Invalid Interpretation Code [facility] Office Visit: OB Routineon 1 Albumin Ql (U) N Invalid Interpretation Code [facility] Documentation of current medications (procedure) Done Invalid Interpretation Code [facility] Glucose Test strip mass conc (U) N Invalid Interpretation Code [facility] Protein mass conc Done Invalid Interpretation Code [facility] Tobacco smoking status IAIS Never Invalid Interpretation Code [facility] Tobacco smoking status [facility] Tobacco smoking status NHIS Invalid Interpretation [facility] Tobacco smoking status IAIS Current every day smoker Invalid Interpretation Code [facility] Tobacco use [facility] Current every day smoker Invalid Interpretation Code [facility] Urine, glucose presence N Invalid Interpretation Code [facility] Urine, protein N Invalid Interpretation Code [facility] 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-2017 [employer] 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 Interface Message Text Patient rescheduled due to illness Normal [facility] Office Visit: OB Routineon 0 02-17-2017 Albumin Ql (U) N Invalid Interpretation Code [facility] Documentation of current medications (procedure) Done Invalid Interpretation Code [facility] Glucose Test strip mass conc (U) N Invalid Interpretation Code [facility] Protein mass conc Done Invalid Interpretation Code [facility] Urine, glucose presence N Invalid Interpretation Code [facility] Urine, protein N Invalid Interpretation Code [facility] Lab Report: HIV Screen 4TH G EN W/Confirmon 02-10-2017 GE use only - for LinkLogic import when terms are not otherwise specified . Invalid Interpretation Code Non Reactive [facility] Lab Report: Hepatitis B Surf dakotah Agon 02-10-2017 BSA (Body Surface Area) . Invalid Interpretation Code Negative [facility] Lab Report: Rapid Plasmin Re agin (RPR)on 02-10-2017 Reagin antibody presence . Invalid Interpretation Code NONREACTIVE [facility] Lab Report: Rubella IgGon rubella virus antibody, IgG 192.8 [iU]/mL Invalid Interpretation Code [facility] Replaced Document: HIV Scree n 4TH GEN W/Confirmon 02-10-2017 HIV1/0/2 SCREEN . Invalid Interpretation Code Non Reactive [facility] Replaced Document: Hepatitis B Surface Agon 02-10-2017 HBV surface Ag Ql (S) . Invalid Interpretation Code Negative [facility] Replaced Document: Rapid Jeremy smin Reagin (RPR)on 02-10-2017 Reagin Ab VDRL Qn (S) . Invalid Interpretation Code NONREACTIVE [facility] Replaced Document: Rubella I gGon 02-10-2017 Rubella IgG 192.8 [iU]/mL Invalid Interpretation Code [facility] Lab Report: CBC W/Diff, Auto matedon 02-09-2017 Basophils/100 WBC Auto (Bld) 0.2 % Invalid Interpretation Code 0-1 [facility] Eosinophils/100 leukocytes 3.2 % Invalid Interpretation Code 0-5 [facility] Erythrocyte distribution width Auto Ratio (RBC) 13.6 % Invalid Interpretation Code 11.6-14.6 [facility] Erythrocytes (RBC) 4.64 10*6/uL Invalid Interpretation Code 4.2-5.4 [facility] Hematocrit (HCT) 40.0 % Invalid Interpretation Code 37-47 [facility] Hemoglobin mass conc (Bld) 13.0 g/dL Invalid Interpretation Code 12.0-15.0 [facility] immature granulocytes, percentage of total cells, blood 0.200 % Invalid Interpretation Code 0.0-0.9 [facility] Lymphocytes 1.29 X10 3/UL Invalid Interpretation Code 0.83-4.51 [facility] Lymphocytes/100 leukocytes 25.7 % Invalid Interpretation Code 19-41 [facility] MCH 28.0 pg Invalid Interpretation Code 27.0-32.0 [facility] MCHC mass conc (RBC) 32.5 G/GL Invalid Interpretation Code 32-36 [facility] MCV 86.2 fL Invalid Interpretation Code 81-99 [facility] Monocytes/100 leukocytes 5.8 % Invalid Interpretation Code 0-10 [facility] neutrophil count, blood 3.3 X10 3/UL Invalid Interpretation Code 2.0-7.7 [facility] Neutrophils/100 WBC Auto (Bld) 64.9 % Invalid Interpretation Code 47-70 [facility] Platelets 171 10*3/mm3 Invalid Interpretation Code 150-450 [facility] PMV by Cordell 11.0 fL Invalid Interpretation Code 6.2-12.0 [facility] red blood cell distribution width, size density 42.8 fL Invalid Interpretation Code 35.1-43.9 [facility] WBC (Leukocytes) 5.0 10*3/uL Invalid Interpretation Code 4.4-11.0 [facility] Lab Report: Hemoglobin A1con 02-09-2017 Hemoglobin A1c/Hemoglobin.total mass fraction (Bld) 5.5 % Invalid Interpretation Code 4.2-6.3 [facility] Lab Report: T4 Total, Thyrox inon 02-09-2017 Thyroxine (T4) 11.4 ug/dL Invalid Interpretation Code 4.8-13.9 [facility] Lab Report: Thyroid Stim Hor kendrick (TSH)on 02-09-2017 Thyroid stimulating hormone (TSH) 6.03 u[iU]/mL High 0.358-3.74 [facility] Office Visit: OB Routineon 0 02-09-2017 Documentation of current medications (procedure) Done Invalid Interpretation Code [facility] Replaced Document: CBC W/Dif f, Automatedon 02-09-2017 Absolute Neut 3.3 X10 3/UL Invalid Interpretation Code 2.0-7.7 [facility] Basophils/100 WBC (Bld) 0.2 % 0-1 B [facility] Eosinophils/100 WBC (Bld) 3.2 % 0-5 [facility] Erythrocyte distribution width Auto Ratio (RBC) 42.8 fL Invalid Interpretation Code 35.1-43.9 [facility] Work Phone: Erythrocyte distribution width Ratio (RBC) 42.8 fL 35.1-43.9 [facility] Erythrocyte distribution width Ratio (RBC) 13.6 % 11.6-14.6 [facility] Hematocrit Volume Fraction (Bld) 40.0 % 37-47 [facility] Immature granulocytes #/vol (Bld) 0.200 % Invalid Interpretation Code 0.0-0.9 [facility] Immature granulocytes/100 WBC (Bld) 0.200 % Invalid Interpretation Code 0.0-0.9 [facility] Lymphocytes #/vol (Bld) 1.29 X10 3/UL 0.83-4.51 [facility] Lymphocytes/100 WBC (Bld) 25.7 % 19-41 [facility] MCH Entitic mass (RBC) 28.0 pg 27.0-32.0 Bl [facility] MCHC mass conc (RBC) 32.5 G/GL 32-36 [facility] MCV Entitic volume (RBC) 86.2 fL 81-99 [facility] Monocytes/100 WBC (Bld) 5.8 % 0-10 B [facility] Neutrophils #/vol (Bld) 3.3 X10 3/UL 2.0-7.7 [facility] Neutrophils Auto #/vol (Bld) 3.3 X10 3/UL Invalid Interpretation Code 2.0-7.7 [facility] Work Phone: Neutrophils/100 WBC (Bld) 64.9 % 47-70 [facility] Platelet mean volume Entitic volume (Bld) 11.0 fL 6.2-12.0 [facility] Platelets #/vol (Bld) 171 10*3/mm3 150-450 B [facility] RBC #/vol (Bld) 4.64 10*6/uL 4.2-5.4 [facility] RDW SD 42.8 fL Invalid Interpretation Code 35.1-43.9 [facility] WBC #/vol (Bld) 5.0 10*3/uL 4.4-11.0 [facility] Microbiology: Culture, Genit al Comprehensiveon 01-20-2017 CUV . Invalid Interpretation Code [facility] GE use only - for [employer] import when terms are not otherwise specified . Invalid Interpretation Code [facility] Microbiology: (P) Culture, G enital Comprehensiveon 01-19-2017 GE use only - for [employer] import when terms are not otherwise specified . Invalid Interpretation Code [facility] Microbiology: (P) Culture, G enital Comprehensiveon 01-18-2017 GE use only - for [employer] import when terms are not otherwise specified . Invalid Interpretation Code [facility] Office Visit: bloody vaginal dischargeon 01-17-2017 Documentation of current medications (procedure) Done Invalid Interpretation Code [facility] Fall risk assessment No Invalid Interpretation Code [facility] Protein mass conc Done [facility] Tobacco smoking status IAIS Never Invalid Interpretation Code [facility] Tobacco smoking status IAIS Current every day smoker Invalid Interpretation Code [facility] Tobacco use [facility] Current every day smoker Invalid Interpretation Code [facility] Microbiology: Culture, Urine on 01-11-[address] [facility] Append: OB Initialon 017 crown rump length by ultrasound 6.1 mm Invalid Interpret[address] Code [facility] estimated date of confinement by sonogram 09/01/[address] [facility] cardiac activity by sonography Yes Invalid Interpretation Code [facility] number by ultrasound [address] [facility] gestational age by ultrasound 6W 3D Invalid Interpretation Code [facility] OB ultrasound, gestational sac Yes Invalid Interpretation Code [facility] Lab Report: CT/NG [facility] BY PCR on 01-09-2017 Chlamydia trachomatis DNA [Presence] in Urine by Probe and target amplification method Negative Invalid Interpretation Code Negative [facility] Neisseria gonorrhoeae presence Negative Invalid Interpretation Code Negative [facility] Office Visit: OB Initialon 0 01-09-2017 Fall risk assessment No Bloo mington [facility] Herpes Simplex Virus Genital no Invalid Interpretation Code [facility] Tobacco smoking status NHIS Never [facility] Tobacco smoking status NHIS Current every day smoker [facility] Tobacco use [facility] Current every day smoker Invalid Interpretation Code [facility] Office Visit: OB Initialon 0 12-21-2015 General categories [Interpretation] of Cervical or vaginal smear or scraping by Cyto stain ASCUS Invalid Interpretation Code [facility] Bacteria identified Anaer cx Nom (Unsp spec) Anaerobic Culture Prevotella bivia W [facility] Work Phone: Anaerobic Culture Prevotella melaninogenica [facility] Work Phone: [phone] Anaerobic Culture Anaerobic cocci [facility] Work Phone: [phone] Bacteria identified Cx Nom ( Wound) Wound Culture Enterococcus faecalis [facility] Work Phone: Culture, urine Bacteria identified Cx Nom (U) Positive [facility] Work Phone: [phone] Bacteria identified Cx Nom (U) Mixed Gram Pos & Gram Neg Org [facility] Work Phone: Gram stain for investigation of transfusion reaction Microscopic observation Gram stain Nom (Unsp spec) [facility] Work Phone: Influenza virus A and B and SARS-CoV-2 (COVID-19) Ag panel - Upper respiratory specim SARS-CoV-2 (COVID-19) RNA JONE+probe Ql (Resp) [facility] Work Phone: Laboratory - Microbiology an d Antimicrobial susceptibility Bacteria identified Cx Nom (Bld) No growth in 5 days. [facility] Work Phone: No Panel Information SARS-CoV-2 & FLU Antigen (Rapid) [facility] Work Phone: Vital Signs Date Time Vital Sign Value Performing Clinician Faci lity 06-21-2024 13:58-0500 Body temperature 98.91 [degF] Tomasz Ace Jr., DPM Work Phone: [facility] 06-21-2024 13:58-0500 Diastolic blood pressure 82 mm[Hg] Tomasz Ace Jr., DPM Work Phone: [facility] 06-21-2024 13:58-0500 Heart rate 90 /min Tomasz Db Byrne, DPM Work Phone: [facility] 06-21-2024 13:58-0500 Systolic blood pressure 128 mm[Hg] Tomasz Db Byrne, DPM Work Phone: [facility] 09-29-2023 15:14-0400 Body height 167.[address] Aleena London Work Phone: [facility] 09-29-2023 15:14-0400 Body mass index (BMI) [Ratio] 38.6 kg/m2 Dr. Aleena London Work Phone: [facility] 09-29-2023 15:14-0400 Body temperature 97 [degF] Dr. Aleena London Work Phone: [facility] 09-29-2023 15:14-0400 Body weight 108.[address] Aleena London Work Phone: [facility] 09-29-2023 15:14-0400 Diastolic blood pressure 90 mm[Hg] Dr. Aleena London Work Phone: [facility] 09-29-2023 15:14-0400 Heart rate 65 /min Dr. Aleena London Work Phone: [facility] 09-29-2023 15:14-0400 Respiratory rate 16 /min Dr. Aleena London Work Phone: [facility] 09-29-2023 15:14-0400 SaO2% (BldA) [Mass fraction] 100 % Dr. Aleena London Work Phone: [facility] 09-29-2023 15:14-0400 Systolic blood pressure 149 mm[Hg] Dr. Aleena London Work Phone: [facility] 09-14-2023 15:11-0400 Body mass index (BMI) [Ratio] 38.3 kg/m2 Dr. Aleena London Work Phone: [facility] 09-14-2023 15:11-0400 Body temperature 98.7 [degF] Dr. Aleena London Work Phone: [facility] 09-14-2023 15:11-0400 Body weight 107.[address] Aleena London Work Phone: [facility] 09-14-2023 15:11-0400 Diastolic blood pressure 82 mm[Hg] Dr. Aleena London Work Phone: [facility] 09-14-2023 15:11-0400 Heart rate 83 /min Dr. Aleena London Work Phone: [facility] 09-14-2023 15:11-0400 Respiratory rate 16 /min Dr. Aleena London Work Phone: [facility] 09-14-2023 15:11-0400 SaO2% (BldA) [Mass fraction] 98 % Dr. Aleena London Work Phone: [facility] 09-14-2023 15:11-0400 Systolic blood pressure 128 mm[Hg] Dr. Aleena London Work Phone: [facility] 09-14-2023 12:10-0400 Body temperature 98.4 [degF] Dr. Aleena London Work Phone: [facility] 09-14-2023 12:10-0400 Diastolic blood pressure 80 mm[Hg] Dr. Aleena London Work Phone: [facility] 09-14-2023 12:10-0400 Heart rate 95 /min Dr. Aleena London Work Phone: [facility] 09-14-2023 12:10-0400 Respiratory rate 12 /min Dr. Aleena London Work Phone: [facility] 09-14-2023 12:10-0400 SaO2% (BldA) [Mass fraction] 98 % Dr. Aleena London Work Phone: [facility] 09-14-2023 12:10-0400 Systolic blood pressure 126 mm[Hg] Dr. Aleena London Work Phone: [facility] 09-11-2023 14:47-0400 Body height 167.[address] Aleena London Work Phone: [facility] 09-11-2023 14:47-0400 Body mass index (BMI) [Ratio] 38.2 kg/m2 Dr. Aleena London Work Phone: [facility] 09-11-2023 14:47-0400 Body temperature 99.4 [degF] Dr. Aleena London Work Phone: [facility] 09-11-2023 14:47-0400 Body weight 107.[address] Aleena London Work Phone: [facility] 09-11-2023 14:47-0400 Diastolic blood pressure 82 mm[Hg] Dr. Aleena London Work Phone: [facility] 09-11-2023 14:47-0400 Heart rate 92 /min Dr. Aleena London Work Phone: [facility] 09-11-2023 14:47-0400 Respiratory rate 14 /min Dr. Aleena London Work Phone: [facility] 09-11-2023 14:47-0400 SaO2% (BldA) [Mass fraction] 99 % Dr. Aleena London Work Phone: [facility] 09-11-2023 14:47-0400 Systolic blood pressure 122 mm[Hg] Dr. Aleena London Work Phone: [facility] 09-05-2023 14:01-0400 Body height 167.[address] Aleena London Work Phone: [facility] 09-05-2023 14:00-0400 Body mass index (BMI) [Ratio] 38 kg/m2 Dr. Aleena London Work Phone: [facility] 09-05-2023 14:00-0400 Body weight 106.[address] Aleena London Work Phone: [facility] 09-05-2023 14:00-0400 Diastolic blood pressure 82 mm[Hg] Dr. Aleena London Work Phone: [facility] 09-05-2023 14:00-0400 Systolic blood pressure 139 mm[Hg] Dr. Aleena London Work Phone: [facility] 09-05-2023 09:46-0400 Body mass index (BMI) [Ratio] 37.8 kg/m2 Dr. Aleena London Work Phone: [facility] 09-05-2023 09:46-0400 Body weight 106.[address] Aleena London Work Phone: [facility] 09-05-2023 09:46-0400 Diastolic blood pressure 75 mm[Hg] Dr. Aleena London Work Phone: [facility] 09-05-2023 09:46-0400 Heart rate 71 /min Dr. Aleena London Work Phone: [facility] 09-05-2023 09:46-0400 SaO2% (BldA) [Mass fraction] 98 % Dr. Aleena London Work Phone: [facility] 09-05-2023 09:46-0400 Systolic blood pressure 113 mm[Hg] Dr. Aleena London Work Phone: [facility] 03-06-2024 00:39-0500 Respiratory rate 18 /min Dr. Aleena London Work Phone: [facility] 07-25-2023 19:13-0500 Body height 167.[address] Aleena London Work Phone: [facility] 07-25-2023 19:13-0500 Body mass index (BMI) [Ratio] 37.9 kg/m2 Dr. Aleena London Work Phone: [facility] 07-25-2023 19:13-0500 Body temperature 98 [degF] Dr. Aleena London Work Phone: [facility] 07-25-2023 19:13-0500 Body weight 106.[address] Aleena London Work Phone: [facility] 07-25-2023 19:13-0500 Diastolic blood pressure 84 mm[Hg] Dr. Aleena London Work Phone: [facility] 07-25-2023 19:13-0500 Heart rate 85 /min Dr. Aleena London Work Phone: [facility] 07-25-2023 19:13-0500 SaO2% (BldA) [Mass fraction] 100 % Dr. Aleena London Work Phone: [facility] 07-25-2023 19:13-0500 Systolic blood pressure 122 mm[Hg] Dr. Aleena London Work Phone: [facility] 07-18-2023 23:43-0500 Body temperature 98 [degF] Dr. Aleena London Work Phone: [facility] 07-18-2023 23:43-0500 Diastolic blood pressure 83 mm[Hg] Dr. Aleena London Work Phone: [facility] 07-18-2023 23:43-0500 Heart rate 74 /min Dr. Aleena London Work Phone: [facility] 07-18-2023 23:43-0500 Respiratory rate 16 /min Dr. Aleena London Work Phone: [facility] 07-18-2023 23:43-0500 SaO2% (BldA) [Mass fraction] 96 % Dr. Aleena London Work Phone: [facility] 07-18-2023 23:43-0500 Systolic blood pressure 120 mm[Hg] Dr. Aleena London Work Phone: [facility] 07-18-2023 20:12-0500 Body height 167.[address] Aleena London Work Phone: [facility] 07-18-2023 20:12-0500 Body mass index (BMI) [Ratio] 37.1 kg/m2 Dr. Aleena London Work Phone: [facility] 07-18-2023 20:12-0500 Body weight 104.[address] Aleena London Work Phone: [facility] 07-18-2023 11:04-0500 Body mass index (BMI) [Ratio] 37.5 kg/m2 Dr. Aleena London Work Phone: [facility] 07-18-2023 11:04-0500 Body weight 105.[address] Aleena London Work Phone: [facility] 07-18-2023 11:04-0500 Diastolic blood pressure 74 mm[Hg] Dr. Aleena London Work Phone: [facility] 07-18-2023 11:04-0500 Systolic blood pressure 112 mm[Hg] Dr. Aleena London Work Phone: [facility] 07-13-2023 12:29-0500 Body temperature 99 [degF] Dr. Aleena London Work Phone: [facility] 07-13-2023 12:29-0500 Diastolic blood pressure 82 mm[Hg] Dr. Aleena London Work Phone: [facility] 07-13-2023 12:29-0500 Heart rate 109 /min Dr. Aleena London Work Phone: [facility] 07-13-2023 12:29-0500 Respiratory rate 12 /min Dr. Aleena London Work Phone: [facility] 07-13-2023 12:29-0500 SaO2% (BldA) [Mass fraction] 98 % Dr. Aleena London Work Phone: [facility] 07-13-2023 12:29-0500 Systolic blood pressure 122 mm[Hg] Dr. Aleena London Work Phone: [facility] 07-04-2023 14:23-0500 Body mass index (BMI) [Ratio] 38 kg/m2 Dr. Aleena London Work Phone: [facility] 07-04-2023 14:23-0500 Body temperature 97.5 [degF] Dr. Aleena London Work Phone: [facility] 07-04-2023 14:23-0500 Body weight 106.[address] Aleena London Work Phone: [facility] 07-04-2023 14:23-0500 Diastolic blood pressure 62 mm[Hg] Dr. Aleena London Work Phone: [facility] 07-04-2023 14:23-0500 Heart rate 82 /min Dr. Aleena London Work Phone: [facility] 07-04-2023 14:23-0500 Respiratory rate 16 /min Dr. Aelena London Work Phone: [facility] 07-04-2023 14:23-0500 SaO2% (BldA) [Mass fraction] 99 % Dr. Aleena London Work Phone: [facility] 07-04-2023 14:23-0500 Systolic blood pressure 122 mm[Hg] Dr. Aleena London Work Phone: [facility] 06-29-2023 09:42-0500 Body mass index (BMI) [Ratio] 60.7 kg/m2 Dr. Aleena London Work Phone: [facility] 06-29-2023 09:42-0500 Body temperature 97.9 [degF] Dr. Aleena London Work Phone: [facility] 06-29-2023 09:42-0500 Body weight 170.[address] Aleena London Work Phone: [facility] 06-29-2023 09:42-0500 Diastolic blood pressure 78 mm[Hg] Dr. Aleena London Work Phone: [facility] 06-29-2023 09:42-0500 Heart rate 94 /min Dr. Aleena London Work Phone: [facility] 06-29-2023 09:42-0500 Respiratory rate 16 /min Dr. Aleena London Work Phone: [facility] 06-29-2023 09:42-0500 SaO2% (BldA) [Mass fraction] 100 % Dr. Aleena London Work Phone: [facility] 06-29-2023 09:42-0500 Systolic blood pressure 136 mm[Hg] Dr. Aleena London Work Phone: [facility] 05-04-2023 12:50-0500 Diastolic blood pressure 77 mm[Hg] Dr. Aleena London Work Phone: [facility] 05-04-2023 12:50-0500 Heart rate 71 /min Dr. Aleena London Work Phone: [facility] 05-04-2023 12:50-0500 Respiratory rate 16 /min Dr. Aleena London Work Phone: [facility] 05-04-2023 12:50-0500 Systolic blood pressure 117 mm[Hg] Dr. Aleena London Work Phone: [facility] 05-04-2023 12:19-0500 Body height 167.[address] Aleena London Work Phone: [facility] 05-04-2023 12:19-0500 Body mass index (BMI) [Ratio] 37.5 kg/m2 Dr. Aleena London Work Phone: [facility] 05-04-2023 12:19-0500 Body temperature 98.3 [degF] Dr. Aleena London Work Phone: [facility] 05-04-2023 12:19-0500 Body weight 105.[address] Aleena London Work Phone: [facility] 05-04-2023 12:19-0500 SaO2% (BldA) [Mass fraction] 100 % Dr. Aleena London Work Phone: [facility] 04-19-2023 11:12-0500 Body mass index (BMI) [Ratio] 37.5 kg/m2 Dr. Aleena London Work Phone: [facility] 04-19-2023 11:12-0500 Body temperature 98.7 [degF] Dr. Aleena London Work Phone: [facility] 04-19-2023 11:12-0500 Body weight 105.[address] Aleena London Work Phone: [facility] 04-19-2023 11:12-0500 Diastolic blood pressure 86 mm[Hg] Dr. Aleena London Work Phone: [facility] 04-19-2023 11:12-0500 Heart rate 85 /min Dr. Aleena London Work Phone: [facility] 04-19-2023 11:12-0500 Respiratory rate 16 /min Dr. Aleena London Work Phone: [facility] 04-19-2023 11:12-0500 SaO2% (BldA) [Mass fraction] 98 % Dr. Aleena London Work Phone: [facility] 04-19-2023 11:12-0500 Systolic blood pressure 122 mm[Hg] Dr. Aleena London Work Phone: [facility] 04-17-2023 13:09-0500 Body height 167.[address] Aleena London Work Phone: [facility] 04-17-2023 13:09-0500 Body mass index (BMI) [Ratio] 37.8 kg/m2 Dr. Aleena London Work Phone: [facility] 04-17-2023 13:09-0500 Body temperature 95.9 [degF] Dr. Aleena London Work Phone: [facility] 04-17-2023 13:09-0500 Body weight 106.[address] Aleena London Work Phone: [facility] 04-17-2023 13:09-0500 Diastolic blood pressure 94 mm[Hg] Dr. Aleena London Work Phone: [facility] 04-17-2023 13:09-0500 Heart rate 107 /min Dr. Aleena London Work Phone: [facility] 04-17-2023 13:09-0500 Respiratory rate 18 /min Dr. Aleena London Work Phone: [facility] 04-17-2023 13:09-0500 SaO2% (BldA) [Mass fraction] 100 % Dr. Aleena London Work Phone: [facility] 04-17-2023 13:09-0500 Systolic blood pressure 145 mm[Hg] Dr. Aleena London Work Phone: [facility] 04-06-2023 14:05-0500 Body height 167.[address] Aleena London Work Phone: [facility] 04-06-2023 14:03-0500 Body mass index (BMI) [Ratio] 37.8 kg/m2 Dr. Aleena London Work Phone: [facility] 04-06-2023 14:03-0500 Body weight 106.[address] Aleena London Work Phone: [facility] 04-06-2023 14:03-0500 Diastolic blood pressure 88 mm[Hg] Dr. Aleena London Work Phone: [facility] 04-06-2023 14:03-0500 Systolic blood pressure 124 mm[Hg] Dr. Aleena London Work Phone: [facility] 03-16-2023 08:15-0400 Body height 167.[address] Aleena London Work Phone: [facility] 03-07-2023 14:41-0400 Body temperature 99 [degF] Dr. Aleena London Work Phone: [facility] 03-07-2023 14:41-0400 Diastolic blood pressure 82 mm[Hg] Dr. Aleena London Work Phone: [facility] 03-07-2023 14:41-0400 Heart rate 82 /min Dr. Aleena London Work Phone: [facility] 03-07-2023 14:41-0400 Respiratory rate 17 /min Dr. Aleena London Work Phone: [facility] 03-07-2023 14:41-0400 SaO2% (BldA) [Mass fraction] 98 % Dr. Aleena London Work Phone: [facility] 03-07-2023 14:41-0400 Systolic blood pressure 125 mm[Hg] Dr. Aleena London Work Phone: [facility] 02-14-2023 08:24-0400 Body temperature 98.9 [degF] Dr. Aleena London Work Phone: [facility] 02-14-2023 08:24-0400 Diastolic blood pressure 71 mm[Hg] Dr. Aleena London Work Phone: [facility] 02-14-2023 08:24-0400 Heart rate 82 /min Dr. Aleena London Work Phone: [facility] 02-14-2023 08:24-0400 Respiratory rate 16 /min Dr. Aleena London Work Phone: [facility] 02-14-2023 08:24-0400 SaO2% (BldA) [Mass fraction] 98 % Dr. Aleena London Work Phone: [facility] 02-14-2023 08:24-0400 Systolic blood pressure 117 mm[Hg] Dr. Aleena London Work Phone: [facility] 02-14-2023 07:13-0400 Body height 167.[address] Aleena London Work Phone: [facility] 02-14-2023 07:13-0400 Body mass index (BMI) [Ratio] 36.3 kg/m2 Dr. Aleena London Work Phone: [facility] 02-14-2023 07:13-0400 Body weight [address] Aleena London Work Phone: [facility] 02-10-2023 09:57-0400 Body mass index (BMI) [Ratio] 36.8 kg/m2 Dr. Aleena London Work Phone: [facility] 02-10-2023 09:57-0400 Body weight 103.[address] Aleena London Work Phone: [facility] 02-10-2023 09:57-0400 Diastolic blood pressure 74 mm[Hg] Dr. Aleena London Work Phone: [facility] 02-10-2023 09:57-0400 Systolic blood pressure 123 mm[Hg] Dr. Aleena London Work Phone: [facility] 02-08-2023 23:04-0400 Diastolic blood pressure 74 mm[Hg] Dr. Aleena London Work Phone: [facility] 02-08-2023 23:04-0400 Heart rate 81 /min Dr. Aleena London Work Phone: [facility] 02-08-2023 23:04-0400 Respiratory rate 16 /min Dr. Aleena London Work Phone: [facility] 02-08-2023 23:04-0400 SaO2% (BldA) [Mass fraction] 99 % Dr. Aleena London Work Phone: [facility] 02-08-2023 23:04-0400 Systolic blood pressure 128 mm[Hg] Dr. Aleena London Work Phone: [facility] 02-08-2023 17:51-0400 Body height 167.[address] Aleena London Work Phone: [facility] 02-08-2023 17:51-0400 Body mass index (BMI) [Ratio] 36.4 kg/m2 Dr. Aleena London Work Phone: [facility] 02-08-2023 17:51-0400 Body temperature 97.5 [degF] Dr. Aleena London Work Phone: [facility] 02-08-2023 17:51-0400 Body weight 102.[address] Aleena London Work Phone: [facility] 02-04-2023 20:12-0400 Respiratory rate 16 /min Dr. Aleena London Work Phone: [facility] 02-04-2023 18:44-0400 Body height 167.[address] Aleena London Work Phone: [facility] 02-04-2023 18:44-0400 Body mass index (BMI) [Ratio] 36.4 kg/m2 Dr. Aleena London Work Phone: [facility] 02-04-2023 18:44-0400 Body temperature 97.6 [degF] Dr. Aleena London Work Phone: [facility] 02-04-2023 18:44-0400 Body weight 102.[address] Aleena London Work Phone: [facility] 02-04-2023 18:44-0400 Diastolic blood pressure 89 mm[Hg] Dr. Aleena London Work Phone: [facility] 02-04-2023 18:44-0400 Heart rate 88 /min Dr. Aleena London Work Phone: [facility] 02-04-2023 18:44-0400 SaO2% (BldA) [Mass fraction] 100 % Dr. Aleena London Work Phone: [facility] 02-04-2023 18:44-0400 Systolic blood pressure 125 mm[Hg] Dr. Aleena London Work Phone: [facility] 01-16-2023 09:13-0400 Body mass index (BMI) [Ratio] 36.5 kg/m2 Dr. Aleena London Work Phone: [facility] 01-16-2023 09:13-0400 Body temperature 95.5 [degF] Dr. Aleena London Work Phone: [facility] 01-16-2023 09:13-0400 Body weight 102.[address] Aleena London Work Phone: [facility] 01-16-2023 09:13-0400 Diastolic blood pressure 86 mm[Hg] Dr. Aleena London Work Phone: [facility] 01-16-2023 09:13-0400 Heart rate 96 /min Dr. Aleena London Work Phone: [facility] 01-16-2023 09:13-0400 Respiratory rate 18 /min Dr. Aleena London Work Phone: [facility] 01-16-2023 09:13-0400 SaO2% (BldA) [Mass fraction] 98 % Dr. Aleena London Work Phone: [facility] 01-16-2023 09:13-0400 Systolic blood pressure 134 mm[Hg] Dr. Aleena London Work Phone: [facility] 12-25-2022 12:31-0400 Body height 167.[address] Aleena London Work Phone: [facility] 12-25-2022 12:31-0400 Body mass index (BMI) [Ratio] 36.3 kg/m2 Dr. Aleena London Work Phone: [facility] 12-25-2022 12:31-0400 Body temperature 97.1 [degF] Dr. Aleena London Work Phone: [facility] 12-25-2022 12:31-0400 Body weight 102.[address] Aleena London Work Phone: [facility] 12-25-2022 12:31-0400 Diastolic blood pressure 124 mm[Hg] Dr. Aleena London Work Phone: [facility] 12-25-2022 12:31-0400 Heart rate 90 /min Dr. Aleena London Work Phone: [facility] 12-25-2022 12:31-0400 Respiratory rate 18 /min Dr. Aleena London Work Phone: [facility] 12-25-2022 12:31-0400 SaO2% (BldA) [Mass fraction] 100 % Dr. Aleena London Work Phone: [facility] 12-25-2022 12:31-0400 Systolic blood pressure 145 mm[Hg] Dr. Aleena London Work Phone: [facility] 12-15-2022 10:30-0400 Body height 167.[address] Aleena London Work Phone: [facility] 12-15-2022 10:30-0400 Body mass index (BMI) [Ratio] 36.1 kg/m2 Dr. Aleena London Work Phone: [facility] 12-15-2022 10:30-0400 Body weight 101.[address] Aleena London Work Phone: [facility] 12-15-2022 10:30-0400 Diastolic blood pressure 80 mm[Hg] Dr. Aleena London Work Phone: [facility] 12-15-2022 10:30-0400 Systolic blood pressure 125 mm[Hg] Dr. Aleena London Work Phone: [facility] 12-08-2022 11:55-0400 Body mass index (BMI) [Ratio] 35.7 kg/m2 Dr. Aleena London Work Phone: [facility] 12-08-2022 11:55-0400 Body weight 100.[address] Aleena London Work Phone: [facility] 12-08-2022 11:55-0400 Diastolic blood pressure 85 mm[Hg] Dr. Aleena London Work Phone: [facility] 12-08-2022 11:55-0400 Systolic blood pressure 121 mm[Hg] Dr. Aleena London Work Phone: [facility] 11-19-2022 20:47-0400 Body height 167.[address] Aleena London Work Phone: [facility] 11-19-2022 20:47-0400 Body mass index (BMI) [Ratio] 36.1 kg/m2 Dr. Aleena London Work Phone: [facility] 11-19-2022 20:47-0400 Body temperature 97.6 [degF] Dr. Aleena London Work Phone: [facility] 11-19-2022 20:47-0400 Body weight 101.[address] Aleena London Work Phone: [facility] 11-19-2022 20:47-0400 Diastolic blood pressure 94 mm[Hg] Dr. Aleena London Work Phone: [facility] 11-19-2022 20:47-0400 Heart rate 99 /min Dr. Aleena London Work Phone: [facility] 11-19-2022 20:47-0400 Respiratory rate 14 /min Dr. Aleena London Work Phone: [facility] 11-19-2022 20:47-0400 SaO2% (BldA) [Mass fraction] 100 % Dr. Aleena London Work Phone: [facility] 11-19-2022 20:47-0400 Systolic blood pressure 130 mm[Hg] Dr. Aleena London Work Phone: [facility] 11-16-2022 10:43-0400 Body height 167.6 cm Lukasz Eubanks MD Work Phone: [facility] 11-16-2022 10:43-0400 Body temperature 98.6 [degF] Lukasz Eubanks MD Work Phone: [facility] 11-16-2022 10:43-0400 Body weight 102.06 kg Lukasz Eubanks MD Work Phone: [facility] 11-16-2022 10:43-0400 Diastolic blood pressure 90 mm[Hg] Lukasz Eubanks MD Work Phone: [facility] 11-16-2022 10:43-0400 Heart rate 79 /min Lukasz Eubanks MD Work Phone: [facility] 11-16-2022 10:43-0400 SaO2% (BldA) [Mass fraction] 100 % Lukasz Eubanks MD Work Phone: [facility] 11-16-2022 10:43-0400 Systolic blood pressure 125 mm[Hg] Lukasz Eubanks MD Work Phone: [facility] 11-08-2022 16:37-0400 Body height 167.[address] Aleena London Work Phone: [facility] 11-08-2022 16:37-0400 Body mass index (BMI) [Ratio] 36.2 kg/m2 Dr. Aleena London Work Phone: [facility] 11-08-2022 16:37-0400 Body temperature 96.5 [degF] Dr. Aleena London Work Phone: [facility] 11-08-2022 16:37-0400 Body weight 101.[address] Aleena London Work Phone: [facility] 11-08-2022 16:37-0400 Diastolic blood pressure 100 mm[Hg] Dr. Aleena London Work Phone: [facility] 11-08-2022 16:37-0400 Heart rate 100 /min Dr. Aleena London Work Phone: [facility] 11-08-2022 16:37-0400 Respiratory rate 18 /min Dr. Aleena London Work Phone: [facility] 11-08-2022 16:37-0400 SaO2% (BldA) [Mass fraction] 93 % Dr. Aleena London Work Phone: [facility] 11-08-2022 16:37-0400 Systolic blood pressure 114 mm[Hg] Dr. Aleena London Work Phone: [facility] 09-02-2022 10:43-0400 Body height 167.[address] Aleena London Work Phone: [facility] 09-02-2022 10:43-0400 Body mass index (BMI) [Ratio] 35.6 kg/m2 Dr. Aleena London Work Phone: [facility] 09-02-2022 10:43-0400 Body temperature 99.5 [degF] Dr. Aleena London Work Phone: [facility] 09-02-2022 10:43-0400 Body weight 100.[address] Aleena London Work Phone: [facility] 09-02-2022 10:43-0400 Diastolic blood pressure 74 mm[Hg] Dr. Aleena London Work Phone: [facility] 09-02-2022 10:43-0400 Heart rate 90 /min Dr. Aleena London Work Phone: [facility] 09-02-2022 10:43-0400 Respiratory rate 16 /min Dr. Aleena London Work Phone: [facility] 09-02-2022 10:43-0400 SaO2% (BldA) [Mass fraction] 98 % Dr. Aleena London Work Phone: [facility] 09-02-2022 10:43-0400 Systolic blood pressure 120 mm[Hg] Dr. Aleena London Work Phone: [facility] 08-26-2022 16:47-0400 Respiratory rate 18 /min Dr. Aleena London Work Phone: [facility] 08-26-2022 15:00-0400 Body mass index (BMI) [Ratio] 36.4 kg/m2 Dr. Aleena London Work Phone: [facility] 08-26-2022 15:00-0400 Body temperature 97.7 [degF] Dr. Aleena London Work Phone: [facility] 08-26-2022 15:00-0400 Body weight 102.[address] Aleena London Work Phone: [facility] 08-26-2022 15:00-0400 Diastolic blood pressure 93 mm[Hg] Dr. Aleena London Work Phone: [facility] 08-26-2022 15:00-0400 Heart rate 97 /min Dr. Aleena London Work Phone: [facility] 08-26-2022 15:00-0400 SaO2% (BldA) [Mass fraction] 100 % Dr. Aleena London Work Phone: [facility] 08-26-2022 15:00-0400 Systolic blood pressure 131 mm[Hg] Dr. Aleena London Work Phone: [facility] 08-22-2022 10:08-0400 Body mass index (BMI) [Ratio] 36.4 kg/m2 Dr. Aleena London Work Phone: [facility] 08-22-2022 10:08-0400 Body temperature 97.6 [degF] Dr. Aleena London Work Phone: [facility] 08-22-2022 10:08-0400 Body weight 102.[address] Aleena London Work Phone: [facility] 08-22-2022 10:08-0400 Diastolic blood pressure 80 mm[Hg] Dr. Aleena London Work Phone: [facility] 08-22-2022 10:08-0400 Heart rate 84 /min Dr. Aleena London Work Phone: [facility] 08-22-2022 10:08-0400 Respiratory rate 18 /min Dr. Aleena London Work Phone: [facility] 08-22-2022 10:08-0400 SaO2% (BldA) [Mass fraction] 96 % Dr. Aleena London Work Phone: [facility] 08-22-2022 10:08-0400 Systolic blood pressure 136 mm[Hg] Dr. Aleena London Work Phone: [facility] 08-18-2022 00:17-0400 Diastolic blood pressure 80 mm[Hg] Dr. Aleena London Work Phone: [facility] 08-18-2022 00:17-0400 Heart rate 81 /min Dr. Aleena London Work Phone: [facility] 08-18-2022 00:17-0400 Respiratory rate 16 /min Dr. Aleena London Work Phone: [facility] 08-18-2022 00:17-0400 SaO2% (BldA) [Mass fraction] 98 % Dr. Aleena London Work Phone: [facility] 08-18-2022 00:17-0400 Systolic blood pressure 130 mm[Hg] Dr. Aleena London Work Phone: [facility] 08-17-2022 21:13-0400 Body mass index (BMI) [Ratio] 36.7 kg/m2 Dr. Aleena London Work Phone: [facility] 08-17-2022 21:13-0400 Body temperature 96.6 [degF] Dr. Aleena London Work Phone: [facility] 08-17-2022 21:13-0400 Body weight 103.[address] Aleena London Work Phone: [facility] 08-15-2022 17:17-0400 Diastolic Blood Pressure Non-Invasive 82 1 ALAN QUINN DO [facility] 08-15-2022 17:17-0400 Heart rate 90 /min ALAN QUINN DO [facility] 08-15-2022 17:17-0400 Respiratory rate 18 /min ALAN QUINN DO [facility] 08-15-2022 17:17-0400 Systolic Blood Pressure Non-Invasive 154 1 ALAN QUINN DO [facility] 08-15-2022 16:04-0400 Body height 167.6 cm ALAN QUINN DO [facility] 08-15-2022 16:04-0400 Body temperature 99.14 [degF] ALAN QUINN DO [facility] 08-15-2022 16:04-0400 Body weight 103.5 kg ALAN QUINN DO [facility] 08-15-2022 16:04-0400 Diastolic Blood Pressure Non-Invasive 79 1 ALAN QUINN DO [facility] 08-15-2022 16:04-0400 Heart rate 108 /min ALAN QUINN DO [facility] 08-15-2022 16:04-0400 Respiratory rate 20 /min ALAN QUINN DO [facility] 08-15-2022 16:04-0400 Systolic Blood Pressure Non-Invasive 125 1 ALAN QUINN DO [facility] 08-08-2022 11:35-0400 Body mass index (BMI) [Ratio] 37 kg/m2 Dr. Aleena London Work Phone: [facility] 08-08-2022 11:35-0400 Body weight 103.[address] Aleena London Work Phone: [facility] 08-08-2022 11:35-0400 Diastolic blood pressure 72 mm[Hg] Dr. Aleena London Work Phone: [facility] 08-08-2022 11:35-0400 Systolic blood pressure 114 mm[Hg] Dr. Aleena London Work Phone: [facility] 07-17-2022 20:31-0500 Diastolic blood pressure 81 mm[Hg] Dr. Aleena London Work Phone: [facility] 07-17-2022 20:31-0500 Heart rate 83 /min Dr. Aleena London Work Phone: [facility] 07-17-2022 20:31-0500 Respiratory rate 24 /min Dr. Aleena London Work Phone: [facility] 07-17-2022 20:31-0500 SaO2% (BldA) [Mass fraction] 121 % Dr. Aleena London Work Phone: [facility] 07-17-2022 20:31-0500 Systolic blood pressure 121 mm[Hg] Dr. Aleena London Work Phone: [facility] 07-17-2022 18:22-0500 Body height 167.[address] Aleena London Work Phone: [facility] 07-17-2022 18:22-0500 Body mass index (BMI) [Ratio] 36.8 kg/m2 Dr. Aleena London Work Phone: [facility] 07-17-2022 18:22-0500 Body temperature 98.2 [degF] Dr. Aleena London Work Phone: [facility] 07-17-2022 18:22-0500 Body weight 103.[address] Aleena London Work Phone: [facility] 07-14-2022 14:08-0500 Body mass index (BMI) [Ratio] 37.3 kg/m2 Dr. Aleena London Work Phone: [facility] 07-14-2022 14:08-0500 Body weight 104.[address] Aleena London Work Phone: [facility] 07-14-2022 14:08-0500 Diastolic blood pressure 84 mm[Hg] Dr. Aleena London Work Phone: [facility] 07-14-2022 14:08-0500 Heart rate 101 /min Dr. Aleena London Work Phone: [facility] 07-14-2022 14:08-0500 SaO2% (BldA) [Mass fraction] 97 % Dr. Aleena London Work Phone: [facility] 07-14-2022 14:08-0500 Systolic blood pressure 130 mm[Hg] Dr. Aleena London Work Phone: [facility] 06-29-2022 08:10-0500 Body height 167.[address] Aleena London Work Phone: [facility] 06-29-2022 08:10-0500 Body mass index (BMI) [Ratio] 37.5 kg/m2 Dr. Aleena London Work Phone: [facility] 06-29-2022 08:10-0500 Body temperature 98.8 [degF] Dr. Aleena London Work Phone: [facility] 06-29-2022 08:10-0500 Body weight 105.[address] Aleena London Work Phone: [facility] 06-29-2022 08:10-0500 Diastolic blood pressure 86 mm[Hg] Dr. Aleena London Work Phone: [facility] 06-29-2022 08:10-0500 Heart rate 76 /min Dr. Aleena London Work Phone: [facility] 06-29-2022 08:10-0500 Respiratory rate 18 /min Dr. Aleena London Work Phone: [facility] 06-29-2022 08:10-0500 SaO2% (BldA) [Mass fraction] 97 % Dr. Aleena London Work Phone: [facility] 06-29-2022 08:10-0500 Systolic blood pressure 124 mm[Hg] Dr. Aleena London Work Phone: [facility] 06-10-2022 09:10-0500 Body height 167.[address] Aleena London Work Phone: [facility] 06-10-2022 09:10-0500 Body mass index (BMI) [Ratio] 36.8 kg/m2 Dr. Aleena London Work Phone: [facility] 06-10-2022 09:10-0500 Body temperature 98.1 [degF] Dr. Aleena London Work Phone: [facility] 06-10-2022 09:10-0500 Body weight 103.[address] Aleena London Work Phone: [facility] 06-10-2022 09:10-0500 Diastolic blood pressure 127 mm[Hg] Dr. Aleena London Work Phone: [facility] 06-10-2022 09:10-0500 Heart rate 96 /min Dr. Aleena London Work Phone: [facility] 06-10-2022 09:10-0500 Respiratory rate 15 /min Dr. Aleena London Work Phone: [facility] 06-10-2022 09:10-0500 SaO2% (BldA) [Mass fraction] 100 % Dr. Aleena London Work Phone: [facility] 06-10-2022 09:10-0500 Systolic blood pressure 142 mm[Hg] Dr. Aleena London Work Phone: [facility] 05-30-2022 09:42-0500 Body mass index (BMI) [Ratio] 36.9 kg/m2 Dr. Aleena London Work Phone: [facility] 05-30-2022 09:42-0500 Body temperature 98.1 [degF] Dr. Aleena London Work Phone: [facility] 05-30-2022 09:42-0500 Body weight 103.[address] Aleena London Work Phone: [facility] 05-30-2022 09:42-0500 Diastolic blood pressure 74 mm[Hg] Dr. Aleena London Work Phone: [facility] 05-30-2022 09:42-0500 Heart rate 82 /min Dr. Aleena London Work Phone: [facility] 05-30-2022 09:42-0500 Respiratory rate 14 /min Dr. Aleena London Work Phone: [facility] 05-30-2022 09:42-0500 SaO2% (BldA) [Mass fraction] 99 % Dr. Aleena London Work Phone: [facility] 05-30-2022 09:42-0500 Systolic blood pressure 126 mm[Hg] Dr. Aleena London Work Phone: [facility] 05-24-2022 08:46-0500 Body mass index (BMI) [Ratio] 37.1 kg/m2 Dr. Aleena London Work Phone: [facility] 05-24-2022 08:46-0500 Body temperature 97.8 [degF] Dr. Aleena London Work Phone: [facility] 05-24-2022 08:46-0500 Body weight 104.[address] Aleena London Work Phone: [facility] 05-24-2022 08:46-0500 Diastolic blood pressure 84 mm[Hg] Dr. Aleena London Work Phone: [facility] 05-24-2022 08:46-0500 Heart rate 89 /min Dr. Aleena London Work Phone: [facility] 05-24-2022 08:46-0500 Respiratory rate 20 /min Dr. Aleena London Work Phone: [facility] 05-24-2022 08:46-0500 SaO2% (BldA) [Mass fraction] 99 % Dr. Aleena London Work Phone: [facility] 05-24-2022 08:46-0500 Systolic blood pressure 129 mm[Hg] Dr. Aleena London Work Phone: [facility] 05-23-2022 02:21-0500 Diastolic blood pressure 82 mm[Hg] Dr. Aleena London Work Phone: [facility] 05-23-2022 02:21-0500 Heart rate 77 /min Dr. Aleena London Work Phone: [facility] 05-23-2022 02:21-0500 Respiratory rate 15 /min Dr. Aleena London Work Phone: [facility] 05-23-2022 02:21-0500 SaO2% (BldA) [Mass fraction] 99 % Dr. Aleena London Work Phone: [facility] 05-23-2022 02:21-0500 Systolic blood pressure 122 mm[Hg] Dr. Aleena London Work Phone: [facility] 05-22-2022 23:54-0500 Body height 167.[address] Aleena London Work Phone: [facility] Work Phone: 05-22-2022 23:54-0500 Body mass index (BMI) [Ratio] 37.3 kg/m2 Dr. Aleena London Work Phone: [facility] 05-22-2022 23:54-0500 Body temperature 98 [degF] Dr. Aleena London Work Phone: [facility] 05-22-2022 23:54-0500 Body weight [address] Aleena London Work Phone: [facility] 05-04-2022 13:18-0500 Body mass index (BMI) [Ratio] 36.6 kg/m2 Dr. Aleena London Work Phone: [facility] 05-04-2022 13:18-0500 Body weight 102.[address] Aleena London Work Phone: [facility] 05-04-2022 13:18-0500 Diastolic blood pressure 82 mm[Hg] Dr. Aleena London Work Phone: [facility] 05-04-2022 13:18-0500 Systolic blood pressure 121 mm[Hg] Dr. Aleena London Work Phone: [facility] 04-20-2022 11:47-0500 Body mass index (BMI) [Ratio] 37.8 kg/m2 Dr. Aleena London Work Phone: [facility] 04-20-2022 11:47-0500 Body weight 103.[address] Aleena London Work Phone: [facility] 04-20-2022 11:47-0500 Diastolic blood pressure 71 mm[Hg] Dr. Aleena London Work Phone: [facility] 04-20-2022 11:47-0500 Systolic blood pressure 111 mm[Hg] Dr. Aleena London Work Phone: [facility] 04-18-2022 17:09-0500 Body height 165.[address] Aleena London Work Phone: [facility] Work Phone: 04-18-2022 17:09-0500 Body mass index (BMI) [Ratio] 37.6 kg/m2 Dr. Aleena London Work Phone: [facility] 04-18-2022 17:09-0500 Body temperature 97.7 [degF] Dr. Aleena London Work Phone: [facility] 04-18-2022 17:09-0500 Body weight 102.[address] Aleena London Work Phone: [facility] 04-18-2022 17:09-0500 Diastolic blood pressure 76 mm[Hg] Dr. Aleena London Work Phone: [facility] 04-18-2022 17:09-0500 Heart rate 102 /min Dr. Aleena London Work Phone: [facility] 04-18-2022 17:09-0500 Respiratory rate 14 /min Dr. Aleena London Work Phone: [facility] 04-18-2022 17:09-0500 SaO2% (BldA) [Mass fraction] 99 % Dr. Aleena London Work Phone: [facility] 04-18-2022 17:09-0500 Systolic blood pressure 123 mm[Hg] Dr. Aleena London Work Phone: [facility] 04-16-2022 09:30-0500 Body temperature 97.8 [degF] Dr. Aleena London Work Phone: [facility] 04-16-2022 09:30-0500 Diastolic blood pressure 61 mm[Hg] Dr. Aleena London Work Phone: [facility] 04-16-2022 09:30-0500 Heart rate 82 /min Dr. Aleena London Work Phone: [facility] 04-16-2022 09:30-0500 Respiratory rate 17 /min Dr. Aleena London Work Phone: [facility] 04-16-2022 09:30-0500 SaO2% (BldA) [Mass fraction] 100 % Dr. Aleena London Work Phone: [facility] 04-16-2022 09:30-0500 Systolic blood pressure 106 mm[Hg] Dr. Aleena London Work Phone: [facility] 04-16-2022 02:05-0500 Body temperature 98.8 [degF] Dr. Aleena London Work Phone: [facility] Work Phone: 04-16-2022 02:05-0500 Diastolic blood pressure 67 mm[Hg] Dr. Aleena London Work Phone: [facility] Work Phone: 04-16-2022 02:05-0500 Heart rate 93 /min Dr. Aleena London Work Phone: [facility] Work Phone: 04-16-2022 02:05-0500 Respiratory rate 18 /min Dr. Aleena London Work Phone: [facility] Work Phone: 04-16-2022 02:05-0500 SaO2% (BldA) [Mass fraction] 98 % Dr. Aleena London Work Phone: [facility] Work Phone: 04-16-2022 02:05-0500 Systolic blood pressure 125 mm[Hg] Dr. Aleena London Work Phone: [facility] Work Phone: 04-15-2022 09:48-0500 Inhaled oxygen flow rate 6 L/min Dr. Aleena London Work Phone: [facility] 04-14-2022 21:53-0500 Body height 165.[address] Aleena London Work Phone: [facility] Work Phone: 04-14-2022 21:53-0500 Body mass index (BMI) [Ratio] 37.3 kg/m2 Dr. Aleena London Work Phone: [facility] 04-14-2022 21:53-0500 Body weight 101.[address] Alenea London Work Phone: [facility] 04-12-2022 20:13-0500 Body temperature 98.1 [degF] Dr. Aleena London Work Phone: [facility] Work Phone: 04-12-2022 20:13-0500 Diastolic blood pressure 56 mm[Hg] Dr. Aleena London Work Phone: [facility] Work Phone: 04-12-2022 20:13-0500 Heart rate 76 /min Dr. Aleena London Work Phone: [facility] Work Phone: 04-12-2022 20:13-0500 Respiratory rate 15 /min Dr. Aleena London Work Phone: [facility] Work Phone: 04-12-2022 20:13-0500 SaO2% (BldA) [Mass fraction] 97 % Dr. Aleena London Work Phone: [facility] Work Phone: 04-12-2022 20:13-0500 Systolic blood pressure 98 mm[Hg] Dr. Aleena London Work Phone: [facility] Work Phone: 04-12-2022 13:43-0500 Body height 165.[address] Aleena London Work Phone: [facility] Work Phone: 04-12-2022 13:43-0500 Body mass index (BMI) [Ratio] 37.6 kg/m2 Dr. Aleena London Work Phone: [facility] Work Phone: 04-12-2022 13:43-0500 Body weight 102.[address] Aleena London Work Phone: [facility] Work Phone: 04-05-2022 09:31-0500 Body height 167.[address] Aleena London Work Phone: [facility] Work Phone: 04-05-2022 09:31-0500 Body mass index (BMI) [Ratio] 36.4 kg/m2 Dr. Aleena London Work Phone: [facility] 04-05-2022 09:31-0500 Body weight 102.[address] Aleena London Work Phone: [facility] 04-05-2022 09:31-0500 Diastolic blood pressure 74 mm[Hg] Dr. Aleena London Work Phone: [facility] 04-05-2022 09:31-0500 Systolic blood pressure 107 mm[Hg] Dr. Aleena London Work Phone: [facility] 03-30-2022 17:35-0500 Heart rate 82 /min Dr. Aleena London Work Phone: [facility] 03-30-2022 17:35-0500 Respiratory rate 15 /min Dr. Aleena London Work Phone: [facility] 03-30-2022 17:35-0500 SaO2% (BldA) [Mass fraction] 98 % Dr. Aleena London Work Phone: [facility] 03-30-2022 14:04-0500 Body mass index (BMI) [Ratio] 36.9 kg/m2 Dr. Aleena London Work Phone: [facility] 03-30-2022 14:04-0500 Body temperature 97.4 [degF] Dr. Aleena London Work Phone: [facility] 03-30-2022 14:04-0500 Body weight 103.[address] Aleena London Work Phone: [facility] 03-30-2022 14:04-0500 Diastolic blood pressure 83 mm[Hg] Dr. Aleena London Work Phone: [facility] 03-30-2022 14:04-0500 Systolic blood pressure 119 mm[Hg] Dr. Aleena London Work Phone: [facility] 03-30-2022 13:02-0500 Body mass index (BMI) [Ratio] 36.9 kg/m2 Dr. Aleena London Work Phone: [facility] 03-30-2022 13:02-0500 Body weight 103.[address] Aleena London Work Phone: [facility] 03-30-2022 13:02-0500 Diastolic blood pressure 73 mm[Hg] Dr. Aleena London Work Phone: [facility] 03-30-2022 13:02-0500 Systolic blood pressure 118 mm[Hg] Dr. Aleena London Work Phone: [facility] 03-23-2022 11:26-0400 Body temperature 98.2 [degF] Dr. Aleena London Work Phone: [facility] 03-23-2022 11:26-0400 Diastolic blood pressure 65 mm[Hg] Dr. Aleena London Work Phone: [facility] 03-23-2022 11:26-0400 Heart rate 66 /min Dr. Aleena London Work Phone: [facility] 03-23-2022 11:26-0400 Respiratory rate 20 /min Dr. Aleena London Work Phone: [facility] 03-23-2022 11:26-0400 SaO2% (BldA) [Mass fraction] 97 % Dr. Aleena London Work Phone: [facility] 03-23-2022 11:26-0400 Systolic blood pressure 106 mm[Hg] Dr. Aleena London Work Phone: [facility] 03-22-2022 18:30-0400 Inhaled oxygen flow rate 4 L/min Dr. Aleena London Work Phone: [facility] 03-22-2022 17:41-0400 Body height 167.[address] Aleena London Work Phone: [facility] Work Phone: 03-22-2022 17:41-0400 Body mass index (BMI) [Ratio] 38.4 kg/m2 Dr. Aleena London Work Phone: [facility] 03-22-2022 17:41-0400 Body weight [address] Aleena London Work Phone: [facility] 03-12-2022 12:29-0400 Body height 167.[address] Aleena London Work Phone: [facility] Work Phone: 03-12-2022 12:29-0400 Body mass index (BMI) [Ratio] 37.9 kg/m2 Dr. Aleena London Work Phone: [facility] 03-12-2022 12:29-0400 Body temperature 98.1 [degF] Dr. Aleena London Work Phone: [facility] 03-12-2022 12:29-0400 Body weight 106.[address] Aleena London Work Phone: [facility] 03-12-2022 12:29-0400 Diastolic blood pressure 106 mm[Hg] Dr. Aleena London Work Phone: [facility] 03-12-2022 12:29-0400 Heart rate 119 /min Dr. Aleena London Work Phone: [facility] 03-12-2022 12:29-0400 Respiratory rate 16 /min Dr. Aleena London Work Phone: [facility] 03-12-2022 12:29-0400 SaO2% (BldA) [Mass fraction] 98 % Dr. Aleena London Work Phone: [facility] 03-12-2022 12:29-0400 Systolic blood pressure 157 mm[Hg] Dr. Aleena London Work Phone: [facility] 03-04-2022 16:11-0400 Heart rate 77 /min Dr. Aleena London Work Phone: [facility] 03-04-2022 16:11-0400 Respiratory rate 15 /min Dr. Aleena London Work Phone: [facility] 03-04-2022 16:11-0400 SaO2% (BldA) [Mass fraction] 98 % Dr. Aleena London Work Phone: [facility] 03-04-2022 13:28-0400 Body height 165.[address] Aleena London Work Phone: [facility] Work Phone: 03-04-2022 13:28-0400 Body mass index (BMI) [Ratio] 38.5 kg/m2 Dr. Aleena London Work Phone: [facility] 03-04-2022 13:28-0400 Body temperature 97.2 [degF] Dr. Aleena London Work Phone: [facility] 03-04-2022 13:28-0400 Body weight 104.[address] Aleena London Work Phone: [facility] 03-04-2022 13:28-0400 Diastolic blood pressure 91 mm[Hg] Dr. Aleena London Work Phone: [facility] 03-04-2022 13:28-0400 Systolic blood pressure 156 mm[Hg] Dr. Aleena London Work Phone: [facility] 03-02-2022 13:00-0400 Body mass index (BMI) [Ratio] 37.8 kg/m2 Dr. Aleena London Work Phone: [facility] 03-02-2022 13:00-0400 Body temperature 98.8 [degF] Dr. Aleena London Work Phone: [facility] 03-02-2022 13:00-0400 Body weight 106.[address] Aleena London Work Phone: [facility] 03-02-2022 13:00-0400 Diastolic blood pressure 82 mm[Hg] Dr. Aleena London Work Phone: [facility] 03-02-2022 13:00-0400 Heart rate 89 /min Dr. Aleena London Work Phone: [facility] 03-02-2022 13:00-0400 Respiratory rate 14 /min Dr. Aleena London Work Phone: [facility] 03-02-2022 13:00-0400 SaO2% (BldA) [Mass fraction] 97 % Dr. Aleena London Work Phone: [facility] 03-02-2022 13:00-0400 Systolic blood pressure 134 mm[Hg] Dr. Aleena London Work Phone: [facility] 02-28-2022 11:09-0400 Body temperature 98.7 [degF] Dr. Aleena London Work Phone: [facility] 02-28-2022 11:09-0400 Diastolic blood pressure 74 mm[Hg] Dr. Aleena London Work Phone: [facility] 02-28-2022 11:09-0400 Heart rate 112 /min Dr. Aleena London Work Phone: [facility] 02-28-2022 11:09-0400 Respiratory rate 14 /min Dr. Aleena London Work Phone: [facility] 02-28-2022 11:09-0400 SaO2% (BldA) [Mass fraction] 99 % Dr. Aleena London Work Phone: [facility] 02-28-2022 11:09-0400 Systolic blood pressure 126 mm[Hg] Dr. Aleena London Work Phone: [facility] 02-23-2022 10:26-0400 Body height 167.[address] Aleena London Work Phone: [facility] Work Phone: 02-23-2022 10:26-0400 Body mass index (BMI) [Ratio] 37.8 kg/m2 Dr. Aleena London Work Phone: [facility] 02-23-2022 10:26-0400 Body weight 106.[address] Aleena London Work Phone: [facility] 02-23-2022 10:26-0400 Diastolic blood pressure 83 mm[Hg] Dr. Aleena London Work Phone: [facility] 02-23-2022 10:26-0400 Heart rate 80 /min Dr. Aleena London Work Phone: [facility] 02-23-2022 10:26-0400 SaO2% (BldA) [Mass fraction] 96 % Dr. Aleena London Work Phone: [facility] 02-23-2022 10:26-0400 Systolic blood pressure 126 mm[Hg] Dr. Aleena London Work Phone: [facility] 02-15-2022 11:31-0400 Body mass index (BMI) [Ratio] 37.6 kg/m2 Dr. Aleena London Work Phone: [facility] 02-15-2022 11:31-0400 Body temperature 98.1 [degF] Dr. Aleena London Work Phone: [facility] 02-15-2022 11:31-0400 Body weight 105.[address] Aleena London Work Phone: [facility] 02-15-2022 11:31-0400 Diastolic blood pressure 85 mm[Hg] Dr. Aleena London Work Phone: [facility] 02-15-2022 11:31-0400 Heart rate 96 /min Dr. Aleena London Work Phone: [facility] 02-15-2022 11:31-0400 Respiratory rate 18 /min Dr. Aleena London Work Phone: [facility] 02-15-2022 11:31-0400 SaO2% (BldA) [Mass fraction] 100 % Dr. Aleena London Work Phone: [facility] 02-15-2022 11:31-0400 Systolic blood pressure 149 mm[Hg] Dr. Aleena London Work Phone: [facility] 02-15-2022 08:52-0400 Body mass index (BMI) [Ratio] 37.5 kg/m2 Dr. Aleena London Work Phone: [facility] 02-15-2022 08:52-0400 Body weight 105.[address] Aleena London Work Phone: [facility] 02-15-2022 08:52-0400 Diastolic blood pressure 85 mm[Hg] Dr. Aleena London Work Phone: [facility] 02-15-2022 08:52-0400 Systolic blood pressure 120 mm[Hg] Dr. Aleena London Work Phone: [facility] 02-08-2022 14:00-0400 Body mass index (BMI) [Ratio] 37.5 kg/m2 Dr. Aleena London Work Phone: [facility] Work Phone: 02-08-2022 14:00-0400 Body temperature 99 [degF] Dr. Aleena London Work Phone: [facility] Work Phone: 02-08-2022 14:00-0400 Body weight 105.[address] Aleena London Work Phone: [facility] Work Phone: 02-08-2022 14:00-0400 Diastolic blood pressure 86 mm[Hg] Dr. Aleena London Work Phone: [facility] Work Phone: 02-08-2022 14:00-0400 Heart rate 89 /min Dr. Aleena London Work Phone: [facility] Work Phone: 02-08-2022 14:00-0400 Respiratory rate 14 /min Dr. Aleena London Work Phone: [facility] Work Phone: 02-08-2022 14:00-0400 SaO2% (BldA) [Mass fraction] 99 % Dr. Aleena London Work Phone: [facility] Work Phone: 02-08-2022 14:00-0400 Systolic blood pressure 132 mm[Hg] Dr. Aleena London Work Phone: [facility] Work Phone: 12-30-2021 15:28-0400 Body height 167.[address] Aleena London Work Phone: [facility] Work Phone: 12-30-2021 15:28-0400 Body mass index (BMI) [Ratio] 37.5 kg/m2 Dr. Aleena London Work Phone: [facility] Work Phone: 12-30-2021 15:28-0400 Body weight 105.[address] Aleena London Work Phone: [facility] Work Phone: 12-30-2021 15:28-0400 Diastolic blood pressure 82 mm[Hg] Dr. Aleena London Work Phone: [facility] Work Phone: 12-30-2021 15:28-0400 Heart rate 87 /min Dr. Aleena London Work Phone: [facility] Work Phone: 12-30-2021 15:28-0400 SaO2% (BldA) [Mass fraction] 97 % Dr. Aleena London Work Phone: [facility] Work Phone: 12-30-2021 15:28-0400 Systolic blood pressure 138 mm[Hg] Dr. Aleena London Work Phone: [facility] Work Phone: 12-24-2021 00:35-0400 Heart rate 89 /min Dr. Aleena London Work Phone: [facility] Work Phone: 12-24-2021 00:35-0400 Respiratory rate 16 /min Dr. Aleena London Work Phone: [facility] Work Phone: 12-24-2021 00:35-0400 SaO2% (BldA) [Mass fraction] 99 % Dr. lAeena Lodnon Work Phone: [facility] Work Phone: 12-23-2021 22:19-0400 Body height 167.[address] Aleena London Work Phone: [facility] Work Phone: 12-23-2021 22:19-0400 Body mass index (BMI) [Ratio] 37.4 kg/m2 Dr. Aleena London Work Phone: [facility] Work Phone: 12-23-2021 22:19-0400 Body temperature 98.1 [degF] Dr. Aleena London Work Phone: [facility] Work Phone: 12-23-2021 22:19-0400 Body weight 105.[address] Aleena London Work Phone: [facility] Work Phone: 12-23-2021 22:19-0400 Diastolic blood pressure 97 mm[Hg] Dr. Aleena London Work Phone: [facility] Work Phone: 12-23-2021 22:19-0400 Systolic blood pressure 139 mm[Hg] Dr. Aleena London Work Phone: [facility] Work Phone: 12-14-2021 10:42-0400 Body mass index (BMI) [Ratio] 37.5 kg/m2 Dr. Aleena London Work Phone: [facility] Work Phone: 12-14-2021 10:42-0400 Body weight 105.[address] Aleena London Work Phone: [facility] Work Phone: 12-14-2021 10:42-0400 Diastolic blood pressure 88 mm[Hg] Dr. Aleena London Work Phone: [facility] Work Phone: 12-14-2021 10:42-0400 Systolic blood pressure 120 mm[Hg] Dr. Aleena London Work Phone: [facility] Work Phone: 11-27-2021 03:46-0400 Diastolic blood pressure 75 mm[Hg] Dr. Aleena London Work Phone: [facility] Work Phone: 11-27-2021 03:46-0400 Heart rate 70 /min Dr. Aleena London Work Phone: [facility] Work Phone: 11-27-2021 03:46-0400 Respiratory rate 15 /min Dr. Aleena London Work Phone: [facility] Work Phone: 11-27-2021 03:46-0400 Systolic blood pressure 125 mm[Hg] Dr. Aleena London Work Phone: [facility] Work Phone: 11-27-2021 01:16-0400 Body height 167.[address] Aleena London Work Phone: [facility] Work Phone: 11-27-2021 01:16-0400 Body mass index (BMI) [Ratio] 38.6 kg/m2 Dr. Aleena London Work Phone: [facility] Work Phone: 11-27-2021 01:16-0400 Body temperature 98.3 [degF] Dr. Aleena London Work Phone: [facility] Work Phone: 11-27-2021 01:16-0400 Body weight 108.[address] Aleena London Work Phone: [facility] Work Phone: 11-27-2021 01:16-0400 SaO2% (BldA) [Mass fraction] 99 % Dr. Aleena London Work Phone: [facility] Work Phone: 11-18-2021 15:03-0400 Body mass index (BMI) [Ratio] 37.8 kg/m2 Dr. Aleena London Work Phone: [facility] Work Phone: 11-18-2021 15:03-0400 Body temperature 98.9 [degF] Dr. Aleena London Work Phone: [facility] Work Phone: 11-18-2021 15:03-0400 Body weight 106.[address] Aleena London Work Phone: [facility] Work Phone: 11-18-2021 15:03-0400 Diastolic blood pressure 78 mm[Hg] Dr. Aleena London Work Phone: [facility] Work Phone: 11-18-2021 15:03-0400 Heart rate 83 /min Dr. Aleena London Work Phone: [facility] Work Phone: 11-18-2021 15:03-0400 Respiratory rate 16 /min Dr. Aleena London Work Phone: [facility] Work Phone: 11-18-2021 15:03-0400 SaO2% (BldA) [Mass fraction] 98 % Dr. Aleena London Work Phone: [facility] Work Phone: 11-18-2021 15:03-0400 Systolic blood pressure 126 mm[Hg] Dr. Aleena London Work Phone: [facility] Work Phone: 11-18-2021 09:43-0400 Body mass index (BMI) [Ratio] 37.6 kg/m2 Dr. Aleena London Work Phone: [facility] Work Phone: 11-18-2021 09:43-0400 Body temperature 98.7 [degF] Dr. Aleena London Work Phone: [facility] Work Phone: 11-18-2021 09:43-0400 Body weight 105.[address] Aleena London Work Phone: [facility] Work Phone: 11-18-2021 09:43-0400 Diastolic blood pressure 76 mm[Hg] Dr. Aleena London Work Phone: [facility] Work Phone: 11-18-2021 09:43-0400 Heart rate 81 /min Dr. Aleena London Work Phone: [facility] Work Phone: 11-18-2021 09:43-0400 Respiratory rate 16 /min Dr. Aleena London Work Phone: [facility] Work Phone: 11-18-2021 09:43-0400 SaO2% (BldA) [Mass fraction] 98 % Dr. Aleena London Work Phone: [facility] Work Phone: 11-18-2021 09:43-0400 Systolic blood pressure 118 mm[Hg] Dr. Aleena London Work Phone: [facility] Work Phone: 11-01-2021 13:12-0400 Body mass index (BMI) [Ratio] 38.2 kg/m2 Dr. Aleena London Work Phone: [facility] Work Phone: 11-01-2021 13:12-0400 Body temperature 99 [degF] Dr. Aleena London Work Phone: [facility] Work Phone: 11-01-2021 13:12-0400 Body weight 107.[address] Aleena London Work Phone: [facility] Work Phone: 11-01-2021 13:12-0400 Diastolic blood pressure 72 mm[Hg] Dr. Aleena London Work Phone: [facility] Work Phone: 11-01-2021 13:12-0400 Heart rate 82 /min Dr. Aleena London Work Phone: [facility] Work Phone: 11-01-2021 13:12-0400 Respiratory rate 16 /min Dr. Aleena London Work Phone: [facility] Work Phone: 11-01-2021 13:12-0400 SaO2% (BldA) [Mass fraction] 98 % Dr. Aleena London Work Phone: [facility] Work Phone: 11-01-2021 13:12-0400 Systolic blood pressure 118 mm[Hg] Dr. Aleena London Work Phone: [facility] Work Phone: 10-29-2021 17:52-0400 Body temperature 100.1 [degF] Dr. Aleena London Work Phone: [facility] Work Phone: 10-29-2021 17:52-0400 Diastolic blood pressure 80 mm[Hg] Dr. Aleena London Work Phone: [facility] Work Phone: 10-29-2021 17:52-0400 Heart rate 105 /min Dr. Aleena London Work Phone: [facility] Work Phone: 10-29-2021 17:52-0400 Respiratory rate 15 /min Dr. Aleena London Work Phone: [facility] Work Phone: 10-29-2021 17:52-0400 SaO2% (BldA) [Mass fraction] 99 % Dr. Aleena London Work Phone: [facility] Work Phone: 10-29-2021 17:52-0400 Systolic blood pressure 150 mm[Hg] Dr. Aleena London Work Phone: [facility] Work Phone: 10-29-2021 17:52-0400 Body temperature 100.1 [degF] Dr. Aleena London Work Phone: [facility] Work Phone: 10-29-2021 17:52-0400 Diastolic blood pressure 80 mm[Hg] Dr. Aleena London Work Phone: [facility] Work Phone: 10-29-2021 17:52-0400 Heart rate 105 /min Dr. Aleena London Work Phone: [facility] Work Phone: 10-29-2021 17:52-0400 Respiratory rate 15 /min Dr. Aleena London Work Phone: [facility] Work Phone: 10-29-2021 17:52-0400 SaO2% (BldA) [Mass fraction] 99 % Dr. Aleena Lonodn Work Phone: [facility] Work Phone: 10-29-2021 17:52-0400 Systolic blood pressure 150 mm[Hg] Dr. Aleena London Work Phone: [facility] Work Phone: 10-15-2021 11:07-0400 Body mass index (BMI) [Ratio] 37.4 kg/m2 Dr. Aleena London Work Phone: [facility] Work Phone: 10-15-2021 11:07-0400 Body temperature 98.1 [degF] Dr. Aleena London Work Phone: [facility] Work Phone: 10-15-2021 11:07-0400 Body weight 105.[address] Aleena London Work Phone: [facility] Work Phone: 10-15-2021 11:07-0400 Diastolic blood pressure 74 mm[Hg] Dr. Aleena London Work Phone: [facility] Work Phone: 10-15-2021 11:07-0400 Heart rate 70 /min Dr. Aleena London Work Phone: [facility] Work Phone: 10-15-2021 11:07-0400 Respiratory rate 16 /min Dr. Aleena London Work Phone: [facility] Work Phone: 10-15-2021 11:07-0400 SaO2% (BldA) [Mass fraction] 98 % Dr. Aleena London Work Phone: [facility] Work Phone: 10-15-2021 11:07-0400 Systolic blood pressure 108 mm[Hg] Dr. Aleena London Work Phone: [facility] Work Phone: 10-15-2021 11:07-0400 Body height 167.[address] Aleena London Work Phone: [facility] Work Phone: 10-15-2021 11:07-0400 Body mass index (BMI) [Ratio] 37.4 kg/m2 Dr. Aleena London Work Phone: [facility] Work Phone: 10-15-2021 11:07-0400 Body temperature 98.1 [degF] Dr. Aleena London Work Phone: [facility] Work Phone: 10-15-2021 11:07-0400 Body weight 105.[address] Aleena London Work Phone: [facility] Work Phone: 10-15-2021 11:07-0400 Diastolic blood pressure 74 mm[Hg] Dr. Aleena London Work Phone: [facility] Work Phone: 10-15-2021 11:07-0400 Heart rate 70 /min Dr. Aleena London Work Phone: [facility] Work Phone: 10-15-2021 11:07-0400 Respiratory rate 16 /min Dr. Aleena London Work Phone: [facility] Work Phone: 10-15-2021 11:07-0400 SaO2% (BldA) [Mass fraction] 98 % Dr. Aleena London Work Phone: [facility] Work Phone: 10-15-2021 11:07-0400 Systolic blood pressure 108 mm[Hg] Dr. Aleena London Work Phone: [facility] Work Phone: 10-13-2021 09:05-0400 Body temperature 98.6 [degF] Dr. Aleena London Work Phone: [facility] Work Phone: 10-13-2021 09:05-0400 Diastolic blood pressure 78 mm[Hg] Dr. Aleena London Work Phone: [facility] Work Phone: 10-13-2021 09:05-0400 Heart rate 86 /min Dr. Aleena London Work Phone: [facility] Work Phone: 10-13-2021 09:05-0400 Respiratory rate 14 /min Dr. Aleena London Work Phone: [facility] Work Phone: 10-13-2021 09:05-0400 SaO2% (BldA) [Mass fraction] 97 % Dr. Aleena London Work Phone: [facility] Work Phone: 10-13-2021 09:05-0400 Systolic blood pressure 126 mm[Hg] Dr. Aleena London Work Phone: [facility] Work Phone: 10-13-2021 09:05-0400 Body temperature 98.6 [degF] Dr. Aleena London Work Phone: [facility] Work Phone: 10-13-2021 09:05-0400 Diastolic blood pressure 78 mm[Hg] Dr. Aleena London Work Phone: [facility] Work Phone: 10-13-2021 09:05-0400 Heart rate 86 /min Dr. Aleena London Work Phone: [facility] Work Phone: 10-13-2021 09:05-0400 Respiratory rate 14 /min Dr. Aleena London Work Phone: [facility] Work Phone: 10-13-2021 09:05-0400 SaO2% (BldA) [Mass fraction] 97 % Dr. Aleena London Work Phone: [facility] Work Phone: 10-13-2021 09:05-0400 Systolic blood pressure 126 mm[Hg] Dr. Aleena London Work Phone: [facility] Work Phone: 10-11-2021 10:37-0400 Body mass index (BMI) [Ratio] 37.5 kg/m2 Dr. Aleena London Work Phone: [facility] Work Phone: 10-11-2021 10:37-0400 Body weight 105.[address] Aleena London Work Phone: [facility] Work Phone: 10-11-2021 10:37-0400 Diastolic blood pressure 82 mm[Hg] Dr. Aleena London Work Phone: [facility] Work Phone: 10-11-2021 10:37-0400 Systolic blood pressure 122 mm[Hg] Dr. Aleena London Work Phone: [facility] Work Phone: 10-11-2021 10:37-0400 Body height 167.[address] Aleena London Work Phone: [facility] Work Phone: 10-11-2021 10:37-0400 Body mass index (BMI) [Ratio] 37.5 kg/m2 Dr. Aleena London Work Phone: [facility] Work Phone: 10-11-2021 10:37-0400 Body weight 105.[address] Aleena London Work Phone: [facility] Work Phone: 10-11-2021 10:37-0400 Diastolic blood pressure 82 mm[Hg] Dr. Aleena London Work Phone: [facility] Work Phone: 10-11-2021 10:37-0400 Systolic blood pressure 122 mm[Hg] Dr. Aleena London Work Phone: [facility] Work Phone: 09-27-2021 14:08-0400 Body mass index (BMI) [Ratio] 37.8 kg/m2 Dr. Aleena London Work Phone: [facility] Work Phone: 09-27-2021 14:08-0400 Body weight 106.[address] Aleena London Work Phone: [facility] Work Phone: 09-27-2021 14:08-0400 Diastolic blood pressure 78 mm[Hg] Dr. Aleena London Work Phone: [facility] Work Phone: 09-27-2021 14:08-0400 Heart rate 74 /min Dr. Aleena London Work Phone: [facility] Work Phone: 09-27-2021 14:08-0400 Respiratory rate 18 /min Dr. Aleena London Work Phone: [facility] Work Phone: 09-27-2021 14:08-0400 SaO2% (BldA) [Mass fraction] 98 % Dr. Aleena London Work Phone: [facility] Work Phone: 09-27-2021 14:08-0400 Systolic blood pressure 114 mm[Hg] Dr. Aleena London Work Phone: [facility] Work Phone: 09-27-2021 14:08-0400 Body mass index (BMI) [Ratio] 37.8 kg/m2 Dr. Aleena London Work Phone: [facility] Work Phone: 09-27-2021 14:08-0400 Body weight 106.[address] Aleena London Work Phone: [facility] Work Phone: 09-27-2021 14:08-0400 Diastolic blood pressure 78 mm[Hg] Dr. Aleena London Work Phone: [facility] Work Phone: 09-27-2021 14:08-0400 Heart rate 74 /min Dr. Aleena London Work Phone: [facility] Work Phone: 09-27-2021 14:08-0400 Respiratory rate 18 /min Dr. Aleena London Work Phone: [facility] Work Phone: 09-27-2021 14:08-0400 SaO2% (BldA) [Mass fraction] 98 % Dr. Aleena London Work Phone: [facility] Work Phone: 09-27-2021 14:08-0400 Systolic blood pressure 114 mm[Hg] Dr. Aleena London Work Phone: [facility] Work Phone: 09-22-2021 14:55-0400 Body mass index (BMI) [Ratio] 37.9 kg/m2 Dr. Aleena London Work Phone: [facility] Work Phone: 09-22-2021 14:55-0400 Body temperature 98.7 [degF] Dr. Aleena London Work Phone: [facility] Work Phone: 09-22-2021 14:55-0400 Body weight 106.[address] Aleena London Work Phone: [facility] Work Phone: 09-22-2021 14:55-0400 Diastolic blood pressure 82 mm[Hg] Dr. Aleena London Work Phone: [facility] Work Phone: 09-22-2021 14:55-0400 Heart rate 88 /min Dr. Aleena London Work Phone: [facility] Work Phone: 09-22-2021 14:55-0400 Respiratory rate 14 /min Dr. Aleena London Work Phone: [facility] Work Phone: 09-22-2021 14:55-0400 SaO2% (BldA) [Mass fraction] 99 % Dr. Aleena London Work Phone: [facility] Work Phone: 09-22-2021 14:55-0400 Systolic blood pressure 114 mm[Hg] Dr. Aleena London Work Phone: [facility] Work Phone: 09-22-2021 14:55-0400 Body height 167.[address] Aleena London Work Phone: [facility] Work Phone: 09-22-2021 14:55-0400 Body mass index (BMI) [Ratio] 37.9 kg/m2 Dr. Aleena London Work Phone: [facility] Work Phone: 09-22-2021 14:55-0400 Body temperature 98.7 [degF] Dr. Aleena London Work Phone: [facility] Work Phone: 09-22-2021 14:55-0400 Body weight 106.[address] Aleena London Work Phone: [facility] Work Phone: 09-22-2021 14:55-0400 Diastolic blood pressure 82 mm[Hg] Dr. Aleena London Work Phone: [facility] Work Phone: 09-22-2021 14:55-0400 Heart rate 88 /min Dr. Aleena London Work Phone: [facility] Work Phone: 09-22-2021 14:55-0400 Respiratory rate 14 /min Dr. Aleena London Work Phone: [facility] Work Phone: 09-22-2021 14:55-0400 SaO2% (BldA) [Mass fraction] 99 % Dr. Aleena London Work Phone: [facility] Work Phone: 09-22-2021 14:55-0400 Systolic blood pressure 114 mm[Hg] Dr. Aleena London Work Phone: [facility] Work Phone: 09-15-2021 08:29-0400 Body mass index (BMI) [Ratio] 37.9 kg/m2 Dr. Aleena London Work Phone: [facility] Work Phone: 09-15-2021 08:29-0400 Body weight 106.[address] Aleena London Work Phone: [facility] Work Phone: 09-15-2021 08:29-0400 Diastolic blood pressure 82 mm[Hg] Dr. Aleena London Work Phone: [facility] Work Phone: 09-15-2021 08:29-0400 Heart rate 87 /min Dr. Aleena London Work Phone: [facility] Work Phone: 09-15-2021 08:29-0400 SaO2% (BldA) [Mass fraction] 98 % Dr. Aleena London Work Phone: [facility] Work Phone: 09-15-2021 08:29-0400 Systolic blood pressure 117 mm[Hg] Dr. Aleena London Work Phone: [facility] Work Phone: 09-15-2021 08:29-0400 Body mass index (BMI) [Ratio] 37.9 kg/m2 Dr. Aleena London Work Phone: [facility] Work Phone: 09-15-2021 08:29-0400 Body weight 106.[address] Aleena London Work Phone: [facility] Work Phone: 09-15-2021 08:29-0400 Diastolic blood pressure 82 mm[Hg] Dr. Aleena London Work Phone: [facility] Work Phone: 09-15-2021 08:29-0400 Heart rate 87 /min Dr. Aleena London Work Phone: [facility] Work Phone: 09-15-2021 08:29-0400 SaO2% (BldA) [Mass fraction] 98 % Dr. Aleena London Work Phone: [facility] Work Phone: 09-15-2021 08:29-0400 Systolic blood pressure 117 mm[Hg] Dr. Aleena London Work Phone: [facility] Work Phone: 09-09-2021 09:58-0400 Body mass index (BMI) [Ratio] 37.9 kg/m2 Dr. Aleena London Work Phone: [facility] Work Phone: 09-09-2021 09:58-0400 Body weight 106.[address] Aleena London Work Phone: [facility] Work Phone: 09-09-2021 09:58-0400 Diastolic blood pressure 79 mm[Hg] Dr. Aleena London Work Phone: [facility] Work Phone: 09-09-2021 09:58-0400 Systolic blood pressure 120 mm[Hg] Dr. Aleena London Work Phone: [facility] Work Phone: 09-09-2021 09:58-0400 Body mass index (BMI) [Ratio] 37.9 kg/m2 Dr. Aleena London Work Phone: [facility] Work Phone: 09-09-2021 09:58-0400 Body weight 106.[address] Aleena London Work Phone: [facility] Work Phone: 09-09-2021 09:58-0400 Diastolic blood pressure 79 mm[Hg] Dr. Aleena London Work Phone: [facility] Work Phone: 09-09-2021 09:58-0400 Systolic blood pressure 120 mm[Hg] Dr. Aleena London Work Phone: [facility] Work Phone: 09-07-2021 11:24-0400 Body temperature 98.2 [degF] Dr. Aleena London Work Phone: [facility] Work Phone: 09-07-2021 11:24-0400 Diastolic blood pressure 86 mm[Hg] Dr. Aleena London Work Phone: [facility] Work Phone: 09-07-2021 11:24-0400 Heart rate 109 /min Dr. Aleena London Work Phone: [facility] Work Phone: 09-07-2021 11:24-0400 Respiratory rate 16 /min Dr. Aleena London Work Phone: [facility] Work Phone: 09-07-2021 11:24-0400 SaO2% (BldA) [Mass fraction] 99 % Dr. Aleena London Work Phone: [facility] Work Phone: 09-07-2021 11:24-0400 Systolic blood pressure 132 mm[Hg] Dr. Aleena London Work Phone: [facility] Work Phone: 09-07-2021 11:24-0400 Body temperature 98.2 [degF] Dr. Aleena London Work Phone: [facility] Work Phone: 09-07-2021 11:24-0400 Diastolic blood pressure 86 mm[Hg] Dr. Aleena London Work Phone: [facility] Work Phone: 09-07-2021 11:24-0400 Heart rate 109 /min Dr. Aleena London Work Phone: [facility] Work Phone: 09-07-2021 11:24-0400 Respiratory rate 16 /min Dr. Aleena London Work Phone: [facility] Work Phone: 09-07-2021 11:24-0400 SaO2% (BldA) [Mass fraction] 99 % Dr. Aleena London Work Phone: [facility] Work Phone: 09-07-2021 11:24-0400 Systolic blood pressure 132 mm[Hg] Dr. Aleena London Work Phone: [facility] Work Phone: 08-25-2021 22:48-0400 Diastolic blood pressure 83 mm[Hg] Dr. Aleena London Work Phone: [facility] Work Phone: 08-25-2021 22:48-0400 Heart rate 98 /min Dr. Aleena London Work Phone: [facility] Work Phone: 08-25-2021 22:48-0400 SaO2% (BldA) [Mass fraction] 77 % Dr. Aleena London Work Phone: [facility] Work Phone: 08-25-2021 22:48-0400 Systolic blood pressure 114 mm[Hg] Dr. Aleena London Work Phone: [facility] Work Phone: 08-25-2021 22:11-0400 Body temperature 98.2 [degF] Dr. Aleena London Work Phone: [facility] Work Phone: 08-25-2021 22:01-0400 Body height 167.[address] Aleena London Work Phone: [facility] Work Phone: 08-25-2021 22:01-0400 Body mass index (BMI) [Ratio] 38 kg/m2 Dr. Aleena London Work Phone: [facility] Work Phone: 08-25-2021 22:01-0400 Body weight 107.[address] Aleena London Work Phone: [facility] Work Phone: 08-25-2021 22:01-0400 Respiratory rate 16 /min Dr. Aleena London Work Phone: [facility] Work Phone: 08-20-2021 18:00-0400 Body temperature 98.4 [degF] Dr. Aleena London Work Phone: [facility] Work Phone: 08-20-2021 18:00-0400 Diastolic blood pressure 80 mm[Hg] Dr. Aleena London Work Phone: [facility] Work Phone: 08-20-2021 18:00-0400 Heart rate 80 /min Dr. Aleena London Work Phone: [facility] Work Phone: 08-20-2021 18:00-0400 Respiratory rate 16 /min Dr. Aleena London Work Phone: [facility] Work Phone: 08-20-2021 18:00-0400 SaO2% (BldA) [Mass fraction] 100 % Dr. Aleena London Work Phone: [facility] Work Phone: 08-20-2021 18:00-0400 Systolic blood pressure 142 mm[Hg] Dr. Aleena London Work Phone: [facility] Work Phone: 08-20-2021 15:33-0400 Body height 167.[address] Aleena London Work Phone: [facility] Work Phone: 08-20-2021 15:33-0400 Body mass index (BMI) [Ratio] 38 kg/m2 Dr. Aleena London Work Phone: [facility] Work Phone: 08-20-2021 15:33-0400 Body weight 106.[address] Aleena London Work Phone: [facility] Work Phone: 08-11-2021 15:29-0400 Diastolic blood pressure 80 mm[Hg] Dr. Aleena London Work Phone: [facility] Work Phone: 08-11-2021 15:29-0400 Heart rate 90 /min Dr. Aleena London Work Phone: [facility] Work Phone: 08-11-2021 15:29-0400 Systolic blood pressure 120 mm[Hg] Dr. Aleena London Work Phone: [facility] Work Phone: 08-11-2021 15:29-0400 Diastolic blood pressure 80 mm[Hg] Dr. Aleena London Work Phone: [facility] Work Phone: 08-11-2021 15:29-0400 Heart rate 90 /min Dr. Aleena London Work Phone: [facility] Work Phone: 08-11-2021 15:29-0400 Systolic blood pressure 120 mm[Hg] Dr. Aleena London Work Phone: [facility] Work Phone: 08-11-2021 15:26-0400 Body mass index (BMI) [Ratio] 38.5 kg/m2 Dr. Aleena London Work Phone: [facility] Work Phone: 08-11-2021 15:26-0400 Body temperature 97.6 [degF] Dr. Aleena London Work Phone: [facility] Work Phone: 08-11-2021 15:26-0400 Body weight 108.[address] Aleena London Work Phone: [facility] Work Phone: 08-11-2021 15:26-0400 SaO2% (BldA) [Mass fraction] 98 % Dr. Aleena London Work Phone: [facility] Work Phone: 08-11-2021 15:26-0400 Body mass index (BMI) [Ratio] 38.5 kg/m2 Dr. Aleena London Work Phone: [facility] Work Phone: 08-11-2021 15:26-0400 Body temperature 97.6 [degF] Dr. Aleena London Work Phone: [facility] Work Phone: 08-11-2021 15:26-0400 Body weight 108.[address] Aleena London Work Phone: [facility] Work Phone: 08-11-2021 15:26-0400 SaO2% (BldA) [Mass fraction] 98 % Dr. Aleena London Work Phone: [facility] Work Phone: 08-09-2021 11:09-0400 Body mass index (BMI) [Ratio] 38.5 kg/m2 Dr. Aleena London Work Phone: [facility] Work Phone: 08-09-2021 11:09-0400 Body weight 108.[address] Aleena London Work Phone: [facility] Work Phone: 08-09-2021 11:09-0400 Diastolic blood pressure 78 mm[Hg] Dr. Aleena London Work Phone: [facility] Work Phone: 08-09-2021 11:09-0400 Systolic blood pressure 110 mm[Hg] Dr. Aleena London Work Phone: [facility] Work Phone: 08-09-2021 11:09-0400 Body mass index (BMI) [Ratio] 38.5 kg/m2 Dr. Aleena London Work Phone: [facility] Work Phone: 08-09-2021 11:09-0400 Body weight 108.[address] Aleena London Work Phone: [facility] Work Phone: 08-09-2021 11:09-0400 Diastolic blood pressure 78 mm[Hg] Dr. Aleena London Work Phone: [facility] Work Phone: 08-09-2021 11:09-0400 Systolic blood pressure 110 mm[Hg] Dr. Aleena London Work Phone: [facility] Work Phone: 07-15-2021 09:03-0500 Body mass index (BMI) [Ratio] 38.2 kg/m2 Dr. Aleena London Work Phone: [facility] Work Phone: 07-15-2021 09:03-0500 Body weight 107.[address] Aleena London Work Phone: [facility] Work Phone: 07-15-2021 09:03-0500 Diastolic blood pressure 88 mm[Hg] Dr. Aleena London Work Phone: [facility] Work Phone: 07-15-2021 09:03-0500 Heart rate 76 /min Dr. Aleena London Work Phone: [facility] Work Phone: 07-15-2021 09:03-0500 Respiratory rate 16 /min Dr. Aleean London Work Phone: [facility] Work Phone: 07-15-2021 09:03-0500 Systolic blood pressure 120 mm[Hg] Dr. Aleena London Work Phone: [facility] Work Phone: 06-29-2021 10:05-0500 Body mass index (BMI) [Ratio] 39.1 kg/m2 Dr. Aleena London Work Phone: [facility] Work Phone: 06-29-2021 10:05-0500 Body weight 109.[address] Aleena London Work Phone: [facility] Work Phone: 06-29-2021 10:05-0500 Diastolic blood pressure 74 mm[Hg] Dr. Aleena London Work Phone: [facility] Work Phone: 06-29-2021 10:05-0500 Heart rate 91 /min Dr. Aleena London Work Phone: [facility] Work Phone: 06-29-2021 10:05-0500 Respiratory rate 18 /min Dr. Aleena London Work Phone: [facility] Work Phone: 06-29-2021 10:05-0500 SaO2% (BldA) [Mass fraction] 96 % Dr. Aleena London Work Phone: [facility] Work Phone: 06-29-2021 10:05-0500 Systolic blood pressure 115 mm[Hg] Dr. Aleena London Work Phone: [facility] Work Phone: 06-28-2021 12:11-0500 Body temperature 97.4 [degF] Dr. Aleena London Work Phone: [facility] Work Phone: 06-28-2021 12:11-0500 Body weight 109.[address] Aleena London Work Phone: [facility] Work Phone: 06-28-2021 12:11-0500 Diastolic blood pressure 78 mm[Hg] Dr. Aleena London Work Phone: [facility] Work Phone: 06-28-2021 12:11-0500 Heart rate 98 /min Dr. Aleena London Work Phone: [facility] Work Phone: 06-28-2021 12:11-0500 Respiratory rate 16 /min Dr. Aleena London Work Phone: [facility] Work Phone: 06-28-2021 12:11-0500 SaO2% (BldA) [Mass fraction] 98 % Dr. Aleena London Work Phone: [facility] Work Phone: 06-28-2021 12:11-0500 Systolic blood pressure 140 mm[Hg] Dr. Aleena London Work Phone: [facility] Work Phone: 06-21-2021 19:21-0500 Heart rate 78 /min Dr. Aleena London Work Phone: [facility] Work Phone: 06-21-2021 19:21-0500 Respiratory rate 15 /min Dr. Aleena London Work Phone: [facility] Work Phone: 06-21-2021 19:21-0500 SaO2% (BldA) [Mass fraction] 99 % Dr. Aleena London Work Phone: [facility] Work Phone: 06-21-2021 15:48-0500 Body mass index (BMI) [Ratio] 39 kg/m2 Dr. Aleena London Work Phone: [facility] Work Phone: 06-21-2021 15:48-0500 Body temperature 96.8 [degF] Dr. Aleena London Work Phone: [facility] Work Phone: 06-21-2021 15:48-0500 Body weight 109.[address] Aleena London Work Phone: [facility] Work Phone: 06-21-2021 15:48-0500 Diastolic blood pressure 88 mm[Hg] Dr. Aleena London Work Phone: [facility] Work Phone: 06-21-2021 15:48-0500 Systolic blood pressure 132 mm[Hg] Dr. Aleena London Work Phone: [facility] Work Phone: 06-08-2021 08:36-0500 Body mass index (BMI) [Ratio] 39.2 kg/m2 Dr. Aleena London Work Phone: [facility] Work Phone: 06-08-2021 08:36-0500 Body temperature 99.8 [degF] Dr. Aleena London Work Phone: [facility] Work Phone: 06-08-2021 08:36-0500 Body weight 110.[address] Aleena London Work Phone: [facility] Work Phone: 06-08-2021 08:36-0500 Diastolic blood pressure 84 mm[Hg] Dr. Aleena London Work Phone: [facility] Work Phone: 06-08-2021 08:36-0500 Heart rate 85 /min Dr. Aleena London Work Phone: [facility] Work Phone: 06-08-2021 08:36-0500 Respiratory rate 16 /min Dr. Aleena London Work Phone: [facility] Work Phone: 06-08-2021 08:36-0500 SaO2% (BldA) [Mass fraction] 99 % Dr. Aleena London Work Phone: [facility] Work Phone: 06-08-2021 08:36-0500 Systolic blood pressure 140 mm[Hg] Dr. Aleena London Work Phone: [facility] Work Phone: 06-03-2021 07:14-0500 Body mass index (BMI) [Ratio] 38.9 kg/m2 Dr. Aleena London Work Phone: [facility] Work Phone: 06-03-2021 07:14-0500 Body temperature 98.2 [degF] Dr. Aleena London Work Phone: [facility] Work Phone: 06-03-2021 07:14-0500 Body weight 109.[address] Aleena London Work Phone: [facility] Work Phone: 06-03-2021 07:14-0500 Diastolic blood pressure 88 mm[Hg] Dr. Aleena London Work Phone: [facility] Work Phone: 06-03-2021 07:14-0500 Heart rate 83 /min Dr. Aleena London Work Phone: [facility] Work Phone: 06-03-2021 07:14-0500 Respiratory rate 14 /min Dr. Aleena London Work Phone: [facility] Work Phone: 06-03-2021 07:14-0500 SaO2% (BldA) [Mass fraction] 99 % Dr. Aleena London Work Phone: [facility] Work Phone: 06-03-2021 07:14-0500 Systolic blood pressure 146 mm[Hg] Dr. Aleena London Work Phone: [facility] Work Phone: 05-05-2021 09:43-0500 Body mass index (BMI) [Ratio] 38.9 kg/m2 Dr. Aleean London Work Phone: [facility] Work Phone: 05-05-2021 09:43-0500 Body temperature 98 [degF] Dr. Aleena London Work Phone: [facility] Work Phone: 05-05-2021 09:43-0500 Body weight 109.[address] Aleena London Work Phone: [facility] Work Phone: 05-05-2021 09:43-0500 Diastolic blood pressure 68 mm[Hg] Dr. Aleena London Work Phone: [facility] Work Phone: 05-05-2021 09:43-0500 Heart rate 72 /min Dr. Aleena London Work Phone: [facility] Work Phone: 05-05-2021 09:43-0500 Respiratory rate 16 /min Dr. Aleena London Work Phone: [facility] Work Phone: 05-05-2021 09:43-0500 SaO2% (BldA) [Mass fraction] 97 % Dr. Aleena London Work Phone: [facility] Work Phone: 05-05-2021 09:43-0500 Systolic blood pressure 110 mm[Hg] Dr. Aleena London Work Phone: [facility] Work Phone: 05-03-2021 08:06-0500 Body mass index (BMI) [Ratio] 38.7 kg/m2 Dr. Aleena London Work Phone: [facility] Work Phone: 05-03-2021 08:06-0500 Body temperature 98.7 [degF] Dr. Aleena London Work Phone: [facility] Work Phone: 05-03-2021 08:06-0500 Body weight 108.[address] Aleena London Work Phone: [facility] Work Phone: 05-03-2021 08:06-0500 Diastolic blood pressure 70 mm[Hg] Dr. Aleena London Work Phone: [facility] Work Phone: 05-03-2021 08:06-0500 Heart rate 92 /min Dr. Aleena London Work Phone: [facility] Work Phone: 05-03-2021 08:06-0500 Respiratory rate 16 /min Dr. Aleena London Work Phone: [facility] Work Phone: 05-03-2021 08:06-0500 SaO2% (BldA) [Mass fraction] 98 % Dr. Aleena London Work Phone: [facility] Work Phone: 05-03-2021 08:06-0500 Systolic blood pressure 106 mm[Hg] Dr. Aleena London Work Phone: [facility] Work Phone: 04-19-2017 11:55-0500 BMI (Body Mass Index) 38.51 kg/m2 Hanh Balderas NP [facility] 04-19-2017 11:55-0500 BP Diastolic 72 mm[Hg] Hanh Balderas NP [facility] 04-19-2017 11:55-0500 BP Systolic 113 mm[Hg] Hanh Balderas NP [facility] 04-19-2017 11:55-0500 Weight 108.23 kg Hanh Balderas NP [facility] 04-10-2017 05:19-0500 BMI (Body Mass Index) 38.73 kg/m2 Cassidy Moore MD [facility] 04-10-2017 05:19-0500 BP Diastolic 78 mm[Hg] Cassidy Moore MD [facility] 04-10-2017 05:19-0500 BP Systolic 123 mm[Hg] Cassidy Moore MD [facility] 04-10-2017 05:19-0500 Weight 108.86 kg Cassidy Moore MD [facility] 03-13-2017 09:06-0400 BMI (Body Mass Index) 38.83 kg/m2 Hanh Balderas NP [facility] 03-13-2017 09:06-0400 BP Diastolic 77 mm[Hg] Hanh Sadorus CLINICAL SUPPORT MANAGER [facility] 03-13-2017 09:06-0400 BP Systolic 122 mm[Hg] Hanh Sherrie CLINICAL SUPPORT MANAGER [facility] 03-13-2017 09:06-0400 Pulse (Heart Rate) 95 /min Hanhmarianna Dallass CLINICAL SUPPORT MANAGER [facility] 03-13-2017 09:06-0400 Weight 109.14 kg Hanh Dallass CLINICAL SUPPORT MANAGER [facility] 02-17-2017 06:51-0400 BMI (Body Mass Index) 38.41 kg/m2 Cassidy Moore MD [facility] 02-17-2017 06:51-0400 Body Temperature 98.4 [degF] Cassidy Moore MD [facility] 02-17-2017 06:51-0400 BP Diastolic 79 mm[Hg] Cassidy Moore MD [facility] 02-17-2017 06:51-0400 BP Systolic 113 mm[Hg] Cassidy Moore MD [facility] 02-17-2017 06:51-0400 Pulse (Heart Rate) 97 /min Cassdiy Moore MD [facility] 02-17-2017 06:51-0400 Respiratory Rate 16 /min Cassidy Moore MD [facility] 02-17-2017 06:51-0400 Weight 107.96 kg Cassidy Moore MD [facility] 02-09-2017 11:21-0400 BMI (Body Mass Index) 38.51 kg/m2 Cassidy Moore MD [facility] 02-09-2017 11:21-0400 Body Temperature 98.5 [degF] Cassidy Moore MD [facility] 02-09-2017 11:21-0400 BP Diastolic 79 mm[Hg] Cassidy Moore MD [facility] 02-09-2017 11:21-0400 BP Systolic 122 mm[Hg] Cassidy Moore MD [facility] 02-09-2017 11:21-0400 Pulse (Heart Rate) 96 /min Cassidy Moore MD [facility] 02-09-2017 11:21-0400 Respiratory Rate 16 /min Cassidy Moore MD [facility] 02-09-2017 11:21-0400 Weight 108.23 kg Cassidy Moore MD [facility] 01-17-2017 13:53-0400 BMI (Body Mass Index) 38.64 kg/m2 Hanh Sadorus CLINICAL SUPPORT MANAGER [facility] 01-17-2017 13:53-0400 Body Temperature 98.2 [degF] Hanh Sherrie CLINICAL SUPPORT MANAGER [facility] 01-17-2017 13:53-0400 BP Diastolic 85 mm[Hg] Hanh Sadorus CLINICAL SUPPORT MANAGER [facility] 01-17-2017 13:53-0400 BP Systolic 127 mm[Hg] Hanh Sadorus CLINICAL SUPPORT MANAGER [facility] 01-17-2017 13:53-0400 Height 167.64 cm Hanh Sadorus CLINICAL SUPPORT MANAGER [facility] 01-17-2017 13:53-0400 Pulse (Heart Rate) 87 /min Hanh Sadorus CLINICAL SUPPORT MANAGER [facility] 01-17-2017 13:53-0400 Respiratory Rate 16 /min Hanh Sherrie CLINICAL SUPPORT MANAGER [facility] 01-17-2017 13:53-0400 Weight 108.59 kg Hanh Sherrie CLINICAL SUPPORT MANAGER [facility] 01-09-2017 15:06-0400 BMI (Body Mass Index) 38.6 kg/m2 Cassidy Moore MD [facility] 01-09-2017 15:06-0400 Body Temperature 98.2 [degF] Cassidy Moore MD [facility] 01-09-2017 15:06-0400 BP Diastolic 76 mm[Hg] Cassidy Moore MD [facility] 01-09-2017 15:06-0400 BP Systolic 119 mm[Hg] Cassidy Moore MD [facility] 01-09-2017 15:06-0400 Height 167.64 cm Cassidy Moore MD [facility] 01-09-2017 15:06-0400 Pulse (Heart Rate) 111 /min Cassidy Moore MD [facility] 01-09-2017 15:06-0400 Respiratory Rate 16 /min Cassidy Moore MD [facility] 01-09-2017 15:0400 Weight 108.5 kg Cassidy Moore MD [facility] Encounters Encounter Date Encounter Type Care Provider Facility Start: 12-12-2024 ambulatory Efewongbe Oleghe Facili ty:[facility] Start: 11-19-2024 ambulatory Efewongbe Oleghe Facili ty:[facility] Start: 10-10-2024 ambulatory Efewongbe Oleghe Facili ty:[facility] Start: 10-09-2024 End: 10-09-2024 ambulatory Irving Luis Alfredo Facility:[facility] Start: 10-09-2024 End: 10-09-2024 ambulatory Efewongbe Oleghe Facility:[facility] Start: 10-06-2024 End: 10-06-2024 Emergency department patient visit Efongbe Dimitrye Facility:[facility] Start: 10-04-2024 End: 10-04-2024 Emergency department patient visit ULICES BALDERAS [facility] Start: 10-01-2024 End: 10-01-2024 ambulatory Efewongbe Oleghe Facility:[facility] Start: 09-27-2024 ambulatory Sigrid Ram Facility:[facility] Start: 09-25-2024 Encounter for gynecological examination (general) (routine) with abnormal findings Hanh Balderas NP [facility] Start: 09-25-2024 End: 09-25-2024 ambulatory Efewongbe Oleghe Facility:[facility] Start: 09-24-2024 End: 09-25-2024 ambulatory Efewongbe Oleghe Facility:[facility] Start: 09-24-2024 End: 09-24-2024 ambulatory Efewongbe Oledignae Facility:[facility] Start: 09-19-2024 End: 09-19-2024 ambulatory Iesha Loya Facility:[facility] Start: 09-17-2024 ambulatory Efewongbe Oleghe Facili ty:[facility] Start: 09-17-2024 End: 09-17-2024 ambulatory Efewongbe Oleghe Facility:[facility] Start: 09-11-2024 End: 09-11-2024 ambulatory Efewongbe Oleghe Facility:[facility] Start: 09-04-2024 ambulatory Efewongbe Oleghe Facili ty:[facility] Start: 09-03-2024 End: 09-04-2024 ambulatory E[facility]ongbe Oleghe [facility] [facility] Start: 09-03-2024 End: 09-03-2024 ambulatory Britany Nuñez Facility:[facility] Start: 08-29-2024 End: 08-29-2024 Emergency department patient visit Drake Duyen Facility:[facility] Start: 08-27-2024 ambulatory Greg Iva [facility] Start: 08-27-2024 End: 08-27-2024 ambulatory Efewongbe Oledignae Facility:[facility] Start: 08-21-2024 ambulatory Britany Nuñez [facility] Start: 08-21-2024 End: 08-21-2024 ambulatory Britany Nuñez Facility:[facility] Start: 08-20-2024 End: 08-20-2024 Emergency department patient visit LIBERTAD CLARK FOSTER [facility] Start: 08-17-2024 ambulatory Efewongbe Oleghe Facili ty:[facility] Start: 08-14-2024 End: 08-14-2024 ambulatory Efewongbe Oleghe Facility:[facility] Start: 08-12-2024 ambulatory Efewongbe Oleghe Facili ty:[facility] Start: 08-09-2024 End: 08-09-2024 ambulatory Efewongbe Oleghe [facility] Start: 08-02-2024 End: 08-02-2024 ambulatory Efewongbe Oleghe [facility] Start: 07-25-2024 ambulatory Efewongbe Oleghe Facili ty:[facility] Start: 07-25-2024 End: 07-25-2024 Emergency department patient visit Efewongbe Oleghe Facility:[facility] Start: 07-09-2024 ambulatory Efewongbe Oleghe Facili ty:[facility] Start: 07-05-2024 ambulatory Iesha Loya Facili ty:[facility] Start: 07-01-2024 ambulatory Britany Nuñez [facility] Start: 07-01-2024 End: 07-01-2024 ambulatory Britany Nuñez Facility:[facility] Start: 06-28-2024 End: 06-28-2024 Emergency department patient visit Loly Sierra Facility:[facility] Start: 06-21-2024 End: 06-25-2024 ambulatory [facility] Start: 06-21-2024 End: 06-21-2024 Office outpatient new 45 minutes Tomasz Db DPM Work Phone: [facility] Comment on above: Plantar fasciitis (P rimary Dx) Start: 06-21-2024 End: 06-21-2024 ambulatory [facility] Start: 06-18-2024 End: 06-18-2024 Emergency department patient visit Chuck RodriguezKeo Facility:[facility] Start: 06-17-2024 End: 06-17-2024 Emergency department patient visit [facility] Facility:[facility] Start: 06-16-2024 End: 06-16-2024 Emergency department patient visit [facility] Start: 06-13-2024 End: 06-13-2024 Emergency department patient visit [facility] Start: 06-12-2024 ambulatory [facility] Lita Facili ty:[facility] Start: 06-11-2024 End: 06-11-2024 ambulatory Britany Nuñez [facility] Start: 06-10-2024 ambulatory Iesha Loya Facili ty:[facility] Start: 06-05-2024 End: 06-05-2024 [facility] Start: 06-04-2024 End: 06-04-2024 ambulatory Iesha Loya Facility:[facility] Start: 05-29-2024 End: 05-29-2024 ambulatory [facility] Facility:[facility] Start: 05-28-2024 End: 05-28-2024 Emergency department patient visit [facility] Start: 05-27-2024 ambulatory Britany Nuñez [facility] Start: 05-27-2024 End: 05-27-2024 ambulatory Efewongbe Oleghe Facility:[facility] Start: 05-20-2024 End: 05-21-2024 Emergency department patient visit Aleena Moraese Facility:[facility] Start: 05-18-2024 ambulatory Efewongbe Oleghe Facili ty:[facility] Start: 05-15-2024 End: 05-15-2024 Emergency department patient visit Aleena Moraese Facility:[facility] Start: 05-09-2024 End: 05-10-2024 ambulatory Efromanongbe Dimitrye Facility:[facility] Start: 05-09-2024 End: 05-09-2024 Emergency department patient visit LIBERTAD FOSTER [facility] Start: 05-06-2024 End: 05-06-2024 Emergency department patient visit Aleena Moraese Facility:[facility] Start: 05-03-2024 End: 05-03-2024 ambulatory Efewongbe Dimitrye [facility] Start: 05-01-2024 End: 05-01-2024 ambulatory Britany Nuñez Facility:[facility] Start: 04-25-2024 ambulatory Efewongbe Oleghe Facili ty:[facility] Start: 04-25-2024 End: 04-25-2024 ambulatory Efewtarborobe Dimitrye Facility:[facility] Start: 04-23-2024 End: 04-23-2024 Emergency department patient visit Aleena Moraese Facility:[facility] Start: 04-23-2024 End: 04-23-2024 ambulatory Efewongbe Oleghe Facility:[facility] Start: 04-16-2024 End: 04-16-2024 ambulatory Efewongbe Oleghe [facility] Start: 04-15-2024 End: 04-15-2024 Emergency department patient visit KAYLA TIJERINA [facility] Start: 04-09-2024 ambulatory Efewongbe Oleghe Facili ty:[facility] Start: 04-09-2024 End: 04-09-2024 ambulatory Efewongbe Oleghe Facility:[facility] Start: 04-08-2024 End: 04-08-2024 Emergency department patient visit Aleena Moraese Facility:[facility] Start: 04-02-2024 End: 04-02-2024 Emergency department patient visit Aleena Moraese Facility:[facility] Start: 04-01-2024 End: 04-01-2024 Emergency department patient visit RADHA MO [facility] Start: 03-25-2024 ambulatory Efewongbe Oleghe Facili ty:[facility] Start: 03-25-2024 End: 03-25-2024 ambulatory Efromanongbe Dimitrye Facility:[facility] Start: 03-21-2024 End: 03-21-2024 Emergency department patient visit Aleena London Facility:[facility] Start: 03-18-2024 End: 03-18-2024 ambulatory Aleena Moraese [facility] Start: 03-18-2024 Encounter for other preprocedural examination Yusuf Apple [facility] Start: 03-17-2024 End: 03-17-2024 Emergency department patient visit COREY PRETTY [facility] Start: 03-12-2024 End: 03-12-2024 ambulatory Braulioongbe Dimitrye [facility] Start: 03-11-2024 End: 03-11-2024 Emergency department patient visit ALEENA LEZAMA CHAYNannette [facility] Start: 03-08-2024 End: 03-08-2024 ambulatory Efromanongbe Oledignae [facility] Start: 03-08-2024 End: 03-08-2024 ambulatory Efromanongbe Dimitrye [facility] Start: 03-07-2024 End: 03-07-2024 Emergency department patient visit LIBERTAD FOSTER [facility] Start: 03-04-2024 ambulatory Efewongbe Oleghe Facili ty:[facility] Start: 03-04-2024 End: 03-04-2024 Emergency department patient visit ADAN MOONEY [facility] Start: 03-04-2024 End: 03-04-2024 ambulatory Efewongbe Oleghe Facility:[facility] Start: 02-28-2024 End: 02-28-2024 ambulatory Efewongbe Oleghe [facility] Start: 02-28-2024 End: 02-28-2024 ambulatory Efewongbe Oleghe Facility:[facility] Start: 02-23-2024 End: 02-23-2024 Emergency department patient visit EBENEZER CHAMPION [facility] Start: 02-23-2024 End: 02-23-2024 ambulatory Efewongbe Oleghe [facility] Start: 02-22-2024 End: 02-22-2024 ambulatory Efewongbe Oleghe [facility] Start: 02-20-2024 End: 02-20-2024 [facility] Start: 02-16-2024 End: 02-16-2024 Emergency department patient visit Efromanongbe Dimitrye Facility:[facility] Start: 02-15-2024 End: 02-15-2024 ambulatory Efewongbe Oleghe Facility:[facility] Start: 02-14-2024 End: 02-14-2024 Emergency department patient visit LIBERTAD FOSTER [facility] Start: 02-11-2024 End: 02-11-2024 Emergency department patient visit BELKYS AVILA [facility] Start: 02-06-2024 End: 02-06-2024 Emergency department patient visit Braulioongbe Dimitrye Facility:[facility] Start: 02-01-2024 ambulatory Efewongbe Oleghe Facili ty:[facility] Start: 02-01-2024 End: 02-01-2024 ambulatory Efewongbe Oleghe Facility:[facility] Start: 01-31-2024 End: 02-01-2024 Emergency department patient visit Efromanongbe Dimitrye Facility:[facility] Start: 01-29-2024 End: 01-29-2024 Emergency department patient visit ULICES BALDERAS [facility] Start: 01-25-2024 End: 01-25-2024 ambulatory Efewongbe Oleghe [facility] Start: 01-19-2024 End: 01-19-2024 ambulatory Efewongbe Oleghe [facility] Start: 01-16-2024 End: 01-16-2024 Emergency department patient visit NIKKI MILLER [facility] Start: 01-11-2024 End: 01-11-2024 ambulatory [facility] Start: 01-10-2024 [facility] Start: 01-07-2024 End: 01-07-2024 Emergency department patient visit ANDRIA CADE [facility] Start: 12-20-2023 End: 12-20-2023 Emergency department patient visit [facility] Facility:[facility] Start: 12-19-2023 ambulatory [facility] Start: 12-19-2023 End: 12-19-2023 ambulatory [facility] Facility:[facility] Start: 12-11-2023 End: 12-11-2023 Emergency department patient visit [facility] Facility:[facility] Start: 12-08-2023 End: 12-08-2023 ambulatory [facility] Start: 12-01-2023 End: 12-01-2023 Emergency department patient visit BELKYS AVILA [facility] Start: 11-29-2023 End: 11-29-2023 ambulatory [facility] Start: 11-27-2023 End: 11-27-2023 ambulatory [facility] Start: 11-27-2023 End: 11-27-2023 ambulatory [facility] Facility:[facility] Start: 11-25-2023 End: 11-25-2023 Emergency department patient visit LIBERTAD FOSTER [facility] Start: 11-20-2023 Orders Only Patrick perez Work Phone: [facility] [place] Comment on above: Pain (Primary Dx) Start: 11-13-2023 End: 11-13-2023 Emergency department patient visit [facility] Facility:[facility] Start: 11-03-2023 End: 11-03-2023 Emergency department patient visit ADAN MOONEY [facility] Start: 11-01-2023 End: 11-01-2023 ambulatory [facility] Start: 10-20-2023 End: 10-20-2023 Emergency department patient visit ULICES EDER [facility] Start: 09-29-2023 End: 09-29-2023 Emergency department patient visit Dr. Aleena London Work Phone: [facility] Work Phone: Start: 09-29-2023 End: 09-29-2023 Dr. Aleena London Work Phone: [facility]-Emergency Department Work Phone: Start: 09-29-2023 Dr. Aleena London Work Phone: [facility]-Outpatient Breast Imaging Work Phone: Start: 09-21-2023 End: 09-21-[address] Aleena London Work Phone: [facility] Work Phone: Start: 09-21-2023 End: 09-21-2023 Dr. Aleena London Work Phone: [facility]-Laboratory, Specimen Work Phone: Start: 09-14-2023 End: 09-14-2023 Dr. Aleena London Work Phone: [facility] Work Phone: Start: 09-14-2023 End: 09-14-2023 Dr. Aleena London Work Phone: [facility] Work Phone: Start: 09-11-2023 End: 09-11-2023 Dr. Aleena London Work Phone: [facility] Work Phone: Start: 09-05-2023 End: 09-05-[address] Aleena London Work Phone: [facility] Work Phone: Start: 09-05-2023 End: 09-05-2023 Dr. Aleena London Work Phone: [facility] Work Phone: Start: 09-05-2023 End: 09-05-2023 Dr. Aleena London Work Phone: [facility] Gastroenterology Work Phone: Start: 08-31-2023 End: 08-31-[address] Aleena London Work Phone: [facility] Work Phone: Start: 08-31-2023 End: 08-31-2023 Dr. Aleena London Work Phone: [facility]-Laboratory, Specimen Work Phone: Start: 08-30-2023 End: 08-30-2023 Dr. Aleena London Work Phone: [facility] Orthopaedic Specia Work Phone: Start: 08-18-2023 End: 08-18-2023 Dr. Aleena London Work Phone: [facility] Work Phone: Start: 08-16-2023 End: 08-16-2023 ambulatory Argelia Vasquez MD Work Phone: Gynecology Oncology Comment on above: NO SHOW (Primary Dx) Start: 08-16-2023 End: 08-16-2023 Patient encounter procedure Argelia Vasquez MD Work Phone: [facility] Start: 08-11-2023 End: 08-11-[address] Aleena London Work Phone: [facility] Work Phone: Start: 08-11-2023 End: 08-11-2023 Dr. Aleena London Work Phone: [facility]-MRI - [facility] Work Phone: Start: 07-25-2023 End: 07-26-2023 Dr. Aleena London Work Phone: [facility]-Emergency Department Work Phone: Start: 07-24-2023 End: 07-24-[address] Aleena London Work Phone: [facility] Work Phone: Start: 07-24-2023 End: 07-24-2023 Dr. Aleena London Work Phone: [facility]-Ultrasound, [facility] Work Phone: Start: 07-18-2023 End: 07-18-2023 Emergency department patient visit Dr. Aleena London Work Phone: [facility] Work Phone: Start: 07-18-2023 End: 07-18-2023 Dr. Aleena London Work Phone: [facility]-Emergency Department Work Phone: Start: 07-18-2023 End: 07-18-2023 Dr. Aleena London Work Phone: [facility] Work Phone: Start: 07-13-2023 End: 07-13-2023 Dr. Aleena London Work Phone: [facility] Work Phone: Start: 07-06-2023 End: 07-06-2023 Dr. Aleena London Work Phone: [facility] Orthopaedic [facility] Work Phone: Start: 07-04-2023 End: 07-04-2023 Dr. Aleena London Work Phone: [facility] Internal Medicine Work Phone: Start: 06-29-2023 End: 06-29-2023 Dr. Aleena London Work Phone: [facility]-Emergency Department Work Phone: Start: 05-16-2023 End: 05-16-[address] Aleena London Work Phone: [facility] Work Phone: Start: 05-16-2023 End: 05-16-2023 Dr. Aleena London Work Phone: [facility] Work Phone: Start: 05-04-2023 End: 05-04-2023 Emergency department patient visit Dr. Aleena London Work Phone: [facility] Work Phone: Start: 05-04-2023 End: 05-04-2023 Dr. Aleena London Work Phone: [facility]-Emergency Department Work Phone: Start: 05-03-2023 End: 05-03-[address] Aleena London Work Phone: [facility] Work Phone: Start: 05-03-2023 End: 05-03-2023 Dr. Aleena London Work Phone: [facility] Gastroenterology Work Phone: Start: 04-19-2023 End: 04-19-2023 Dr. Aleena London Work Phone: [facility] Internal [facility] Work Phone: Start: 04-17-2023 Dr. Aleena London Work Phone: [facility] Start: 04-17-2023 End: 04-17-2023 Emergency department patient visit Dr. Aleena London Work Phone: [facility] Work Phone: Start: 04-17-2023 End: 04-17-2023 Dr. Aleena London Work Phone: [facility]-Emergency Department Work Phone: Start: 04-12-2023 Telephone encounter Fatmata maher MD Work Phone: [facility] Comment on above: Referral Start: 04-11-2023 End: 04-11-[address] Aleena London Work Phone: [facility] Work Phone: Start: 04-11-2023 End: 04-11-2023 Dr. Aleena London Work Phone: [facility]-Outpatient Breast Imaging Work Phone: Start: 04-06-2023 End: 04-06-[address] Aleena London Work Phone: [facility] Work Phone: Start: 04-06-2023 End: 04-06-2023 Dr. Aleena London Work Phone: [facility] [place] [facility] Work Phone: Start: 03-28-2023 End: 03-28-[address] Aleena London Work Phone: [facility] Work Phone: Start: 03-28-2023 End: 03-28-2023 Dr. Aleena London Work Phone: [facility]-Laboratory Work Phone: Start: 03-21-2023 End: 03-21-[address] Aleena London Work Phone: [facility] Work Phone: Start: 03-21-2023 End: 03-21-2023 Dr. Aleena London Work Phone: [facility]-Occupational Therapy Work Phone: Start: 03-16-2023 End: 03-16-2023 Dr. Aleena London Work Phone: [facility] Work Phone: Start: 03-09-2023 End: 03-09-[address] Aleena London Work Phone: [facility] Work Phone: Start: 03-09-2023 End: 03-09-2023 Dr. Aleena London Work Phone: [facility]-Outpatient Pavilion Ultrasound Work Phone: Start: 03-07-2023 End: 03-07-2023 Dr. Aleena London Work Phone: [facility] Work Phone: Start: 03-03-2023 End: 03-03-[address] Aleena London Work Phone: [facility] Work Phone: Start: 03-03-2023 End: 03-03-2023 Dr. Aleena London Work Phone: [facility]-Laboratory Work Phone: Start: 03-01-2023 End: 03-01-2023 Dr. Aleena London Work Phone: [facility] Work Phone: Start: 02-22-2023 End: 02-22-2023 Dr. Aleena London Work Phone: [facility] Work Phone: Start: 02-14-2023 End: 02-14-[address] Aleena London Work Phone: [facility] Work Phone: Start: 02-14-2023 End: 02-14-2023 Dr. Aleena London Work Phone: [facility]-Surgical Day Care Start: 02-13-2023 End: 02-13-2023 Dr. Aleena London Work Phone: [facility] Work Phone: Start: 02-10-2023 End: 02-10-2023 Dr. Aleena London Work Phone: [facility] [place] [facility] Work Phone: Start: 02-08-2023 End: 02-08-2023 Emergency department patient visit Dr. Aleena London Work Phone: [facility] Work Phone: Start: 02-08-2023 End: 02-08-2023 Dr. Aleena London Work Phone: [facility]-Emergency Department Work Phone: Start: 02-04-2023 End: 02-04-2023 Emergency department patient visit Dr. Aleena London Work Phone: [facility] Work Phone: Start: 02-04-2023 End: 02-04-2023 Dr. Aleena London Work Phone: [facility]-Emergency Department Work Phone: Start: 02-02-2023 Telephone encounter Nima Kaur MD Work Phone: [facility] Comment on above: Patient Question Start: 01-16-2023 End: 01-16-2023 Dr. Aleena London Work Phone: [facility] Internal Medicine Work Phone: Start: 12-25-2022 End: 12-25-2022 Emergency department patient visit Dr. Aleena London Work Phone: [facility]-Emergency Department Work Phone: Start: 12-25-2022 End: 12-25-2022 Dr. Aleena London Work Phone: [facility]-Emergency Department Work Phone: Start: 12-15-2022 End: 12-15-[address] Aleena London Work Phone: [facility] Work Phone: Start: 12-15-2022 End: 12-15-[address] [facility] Start: 12-15-2022 End: 12-15-2022 Dr[facility] Start: 12-15-2022 End: 12-15-[address] Aleena London Work Phone: [facility] [place] [facility] Work Phone: Start: 12-15-2022 End: 12-15-2022 Dr. Aleena London Work Phone: [facility] [place] [facility] Work Phone: Start: 12-08-2022 End: 12-08-[address] Aleena London Work Phone: [facility] [place] [facility] Work Phone: Start: 12-08-2022 End: 12-08-2022 Dr. Aleena London Work Phone: [facility] Work Phone: Start: 12-06-2022 End: 12-06-[address] Aleena London Work Phone: [facility] Work Phone: Start: 12-06-2022 End: 12-06-2022 Dr. Aleena London Work Phone: [facility] Work Phone: Start: 11-30-2022 End: 11-30-[address] Aleena London Work Phone: [facility] Gastroenterology Work Phone: Start: 11-30-2022 End: 11-30-2022 Dr. Aleena London Work Phone: [facility] Work Phone: Start: 11-28-2022 End: 11-28-[address] Aleena London Work Phone: [facility] Work Phone: Start: 11-28-2022 End: 11-28-[address] Aleena London Work Phone: [facility] Work Phone: Start: 11-28-2022 End: 11-28-2022 Dr. Aleena London Work Phone: [facility] Work Phone: Start: 11-25-2022 End: 11-25-[address] Aleena London Work Phone: [facility] Work Phone: Start: 11-25-2022 End: 11-25-[address] Aleena London Work Phone: [facility] Work Phone: Start: 11-25-2022 End: 11-25-2022 Dr. Aleena London Work Phone: [facility], [facility] Work Phone: Start: 11-19-2022 End: 11-20-2022 Emergency department patient visit Dr. Aleena London Work Phone: [facility] Work Phone: Start: 11-19-2022 End: 11-20-2022 Dr. Aleena London Work Phone: [facility]-Emergency Department Work Phone: Start: 11-18-2022 End: 11-18-[address] Aleena London Work Phone: [facility] Work Phone: Start: 11-18-2022 End: 11-18-2022 Dr. Aleena London Work Phone: [facility] Work Phone: Start: 11-16-2022 End: 11-16-2022 ambulatory LUKASZ EUBANKS Facility:[facility] Start: 11-16-2022 End: 11-16-2022 Office outpatient new 60 minutes Lukasz Eubanks MD Work Phone: [facility] Gynecology Oncology Comment on above: Pelvic pain in femal e (Primary Dx) Start: 11-08-2022 End: 11-08-2022 Emergency department patient visit Dr. Aleena London Work Phone: [facility] Work Phone: Start: 11-08-2022 End: 11-08-2022 Dr. Aleena London Work Phone: [facility]-Emergency Department Start: 10-24-2022 End: 10-24-[address] Aleena London Work Phone: [facility] Work Phone: Start: 10-24-2022 End: 10-24-2022 Dr. Aleena London Work Phone: [facility] Orthopaedic Spec[facility] Start: 10-11-2022 End: 10-12-2022 Emergency department patient visit ALEENA LONDON MD Facility:B Start: 10-07-2022 End: 10-07-[address] Aleena London Work Phone: [facility] Work Phone: Start: 10-07-2022 End: 10-07-[address] Aleena London Work Phone: [facility] Work Phone: Start: 10-07-2022 End: 10-07-2022 Dr. Aleena London Work Phone: [facility] Start: 09-20-2022 End: 09-20-[address] Aleena London Work Phone: [facility] Work Phone: Start: 09-20-2022 End: 09-20-2022 Dr. Aleena London Work Phone: [facility] Orthopaedic Specia Start: 09-02-2022 End: 09-02-[address] Aleena London Work Phone: [facility] Internal Medicine Work Phone: Start: 09-02-2022 End: 09-02-2022 Dr. Aleena London Work Phone: [facility] Internal Medicine Start: 08-26-2022 Non-patient / Non-visit Dr. Taz London Work Phone: [facility] Start: 08-26-2022 End: 08-26-2022 Emergency department patient [facility] Start: 08-26-2022 End: 08-26-2022 Dr. Aleena London Work Phone: [facility]-Emergency Department Start: 08-22-2022 End: 08-22-[address] Aleena London Work Phone: [facility] [facility] Work Phone: Start: 08-22-2022 End: 08-22-2022 Dr. Aleena [place] [facility] Start: 08-17-2022 End: 08-18-2022 Emergency department patient [facility] Dr[facility] Aleena [facility] Start: 08-17-2022 End: 08-18-2022 Dr. Aleena London Work Phone: [facility]-Emergency Department Start: 08-15-2022 End: 08-15-2022 Emergency department patient visit ALAN QUINN DO Facility:B Start: 08-15-2022 End: 08-15-2022 Emergency department patient visit ALAN QUINN DO [facility] Start: 08-08-2022 End: 08-08-[address] Aleena London Work Phone: [facility] Work Phone: Start: 08-08-2022 End: 08-08-2022 Dr. Aleena London Work Phone: [facility] Start: 07-25-2022 End: 07-25-[address] Aleena London Work Phone: [facility] Work Phone: Start: 07-25-2022 End: 07-25-2022 Dr. Aleena London Work Phone: [facility]-Ultrasound, [facility] Start: 07-17-2022 End: 07-17-2022 Emergency department patient visit Dr. Aleena London Work Phone: [facility] Work Phone: Start: 07-17-2022 End: 07-17-2022 Dr. Aleena London Work Phone: [facility]Emergency Department Start: 07-14-2022 End: 07-14-[address] Aleena London Work Phone: [facility] Work Phone: Start: 07-14-2022 End: 07-14-2022 Dr. Aleena London Work Phone: [facility]-Laboratory Start: 07-13-2022 End: 07-13-[address] Aleena London Work Phone: [facility] Work Phone: Start: 07-13-2022 End: 07-13-2022 Dr. Aleena London Work Phone: [facility]-Ultrasound, [facility] Start: 07-04-2022 End: 07-05-2022 Emergency department patient visit Provider Pending Facility:[id number] Start: 06-29-2022 End: 06-29-2022 Dr. Aleena London Work Phone: [facility] Internal Medicine Start: 06-23-2022 End: 06-24-2022 Emergency department [facility] Start: 06-22-2022 End: 06-22-[address] Aleena London Work Phone: [facility] Work Phone: Start: 06-22-2022 End: 06-22-2022 Dr. Aleena London Work Phone: [facility] Start: 06-10-2022 End: 06-10-2022 Emergency department patient visit Dr. Aleena London Work Phone: [facility] Work Phone: Start: 06-10-2022 End: 06-10-2022 Dr. Aleena London Work Phone: [facility]Emergency [facility] Start: 05-30-2022 End: 05-30-[address] Aleena London Work Phone: [facility] Work Phone: Start: 05-30-2022 End: 05-30-2022 Dr. Aleena London Work Phone: [facility] Internal Medicine Start: 05-25-2022 End: 05-25-2022 Dr. Aleena London Work Phone: [facility] Women's Care Start: 05-24-2022 End: 05-24-2022 Dr. Aleena [facility] Start: 05-22-2022 End: 05-23-2022 Emergency department patient visit Dr. Aleena London Work Phone: [facility]Emergency [facility] Start: 05-22-2022 End: 05-23-2022 Dr. Aleena London Work Phone: [facility]gency [facility] Start: 05-04-2022 End: 05-04-[address] Aleena London Work Phone: [facility] Start: 05-04-2022 End: 05-04-2022 Dr. Aleena London Work Phone: [facility] Start: 04-20-2022 End: 04-20-[address] Aleena London Work Phone: [facility] Start: 04-20-2022 End: 04-20-2022 Dr. Aleena London Work Phone: [facility] Start: 04-19-2022 Non-patient / Non-visit Dr. Taz London Work Phone: [facility] Start: 04-19-2022 Dr. Aleena London Work Phone: [facility] Start: 04-18-2022 End: 04-18-2022 Emergency department patient visit Dr. Aleena London Work Phone: [facility]Emergency [facility] Start: 04-18-2022 End: 04-18-2022 Dr. Aleena London Work Phone: [facility]Emergency [facility] Start: 04-16-2022 Non-patient / Non-visit Dr. Taz London Work Phone: [facility] Start: 04-16-2022 Dr. Aleena London Work Phone: [facility] Start: 04-15-2022 End: 04-15-2022 Dr. Aleena London Work Phone: [facility] Start: 04-15-2022 Non-patient / Non-visit Dr. Taz London Work Phone: [facility] Start: 04-15-2022 Dr. Aleena London Work Phone: [facility] Start: 04-14-2022 Non-patient / Non-visit Dr. Taz London Work Phone: [facility] Start: 04-14-2022 Dr. Aleena London Work Phone: [facility] Start: 04-13-2022 Non-patient / Non-visit Dr. Taz London Work Phone: [facility] Start: 04-13-2022 Dr. Aleena London Work Phone: [facility] Start: 04-12-2022 End: 04-16-2022 Evaluation and management of inpatient [facility] Aleena [facility] Start: 04-12-2022 End: 04-16-2022 Dr. Ale[facility] Start: 04-05-2022 End: 04-05-[address] Aleena London Work Phone: [facility] Start: 04-05-2022 End: 04-05-2022 Dr. Aleena London Work Phone: [facility] Start: 03-30-2022 End: 03-30-[address] Aleena London Work Phone: [facility] Work Phone: Start: 03-30-2022 End: 03-30-[address] Aleena London Work Phone: [facility]-Laboratory, Specimen Start: 03-30-2022 End: 03-30-2022 Emergency department patient visit Dr. Aleena London Work Phone: [facility]Emergency [facility] Start: 03-30-2022 End: 03-30-2022 Dr. Aleena London Work Phone: [facility] Start: 03-30-2022 End: 03-30-[address] Aleena London Work Phone: [facility] Start: 03-30-2022 End: 03-30-2022 Dr. Aleena London Work Phone: [facility] Start: 03-23-2022 Non-patient / Non-visit Dr. Taz London Work Phone: [facility] Start: 03-23-2022 Dr. Aleena London Work Phone: [facility] Start: 03-22-2022 Non-patient / Non-visit Dr. Taz London Work Phone: [facility] Start: 03-22-2022 Dr. Aleena London Work Phone: [facility] Start: 03-22-2022 End: 03-23-2022 Evaluation and management of inpatient Dr. Aleena London Work Phone: [facility]Medical Surgical 3 Start: 03-22-2022 End: 03-23-2022 Dr. [facility] Start: 03-12-2022 End: 03-12-2022 Emergency department patient [facility] Aleena [facility] Start: 03-12-2022 End: 03-12-2022 Dr. Aleena London Work Phone: [facility] Start: 03-04-2022 End: 03-04-2022 Emergency department patient [facility]. Aleena [facility] Start: 03-04-2022 End: 03-04-2022 Dr. [facility] Start: 03-02-2022 End: 03-02-[address] Aleena London Work Phone: [facility] Internal Medicine Start: 03-02-2022 End: 03-02-2022 Dr. Aleena London Work Phone: [facility] Internal Medicine Start: 03-02-2022 End: 03-04-2022 Non-patient / Non-visit Dr. Aleena London Work Phone: [facility] Start: 03-02-2022 End: 03-04-2022 Dr. Aleena London Work Phone: [facility] Start: 02-28-2022 End: 02-28-[address] Aleena London Work Phone: [facility] Start: 02-28-2022 End: 02-28-2022 Dr. Aleena London Work Phone: [facility] Start: 02-25-2022 End: 02-25-[address] Aleena London Work Phone: [facility] Orthopaedic Specia Start: 02-25-2022 End: 02-25-2022 Dr. Aleena London Work Phone: [facility] Orthopaedic Specia Start: 02-23-2022 End: 02-23-[address] Aleena London Work Phone: [facility] Work Phone: Start: 02-23-2022 End: 02-23-[address] Aleena London Work Phone: [facility]-Pulmonary Services/Neurology Start: 02-23-2022 End: 02-23-2022 Dr. Aleena London Work Phone: [facility]/Neurology Start: 02-23-2022 End: 02-23-[address] Aleena London Work Phone: [facility] Gastroenterology Start: 02-23-2022 End: 02-23-2022 Dr. Aleena London Work Phone: [facility] Gastroenterology Start: 02-15-2022 End: 02-15-2022 Emergency department patient visit Dr. Aleena London Work Phone: [facility]Emergency [facility] Start: 02-15-2022 End: 02-15-2022 Dr. Aleena London Work Phone: [facility] Start: 02-15-2022 End: 02-15-[address] Aleena London Work Phone: [facility] [place] Start: 02-15-2022 End: 02-15-2022 Dr. Aleena London Work Phone: [facility] [place] Start: 02-10-2022 End: 02-10-[address] Aleena London Work Phone: [facility] Start: 02-10-2022 End: 02-10-2022 Dr. Aleena London Work Phone: [facility] Start: 02-08-2022 End: 02-08-[address] Aleena London Work Phone: [facility] Internal Medicine Start: 01-13-2022 End: 01-13-[address] Aleena London Work Phone: [facility] Work Phone: Start: 01-13-2022 End: 01-13-[address] Aleena London Work Phone: [facility]Labor[facility] Start: 01-11-2022 End: 01-11-[address] Aleena London Work Phone: [facility] Work Phone: Start: 01-11-2022 End: 01-11-[address] Aleena London Work Phone: [facility] Start: 01-03-2022 End: 01-03-[address] Aleena London Work Phone: [facility]Labor[facility] Start: 12-30-2021 End: 12-30-[address] Aleena London Work Phone: [facility] Gastroenterology Start: 12-23-2021 End: 12-24-2021 Emergency department patient visit Dr. Aleena London Work Phone: [facility]Emergency Department Start: 12-16-2021 End: 12-16-[address] Aleena London Work Phone: [facility] Women's Care Start: 12-07-2021 End: 12-07-[address] Aleena London Work Phone: [facility] Start: 11-27-2021 End: 11-27-2021 Emergency department patient visit Dr. Aleena London Work Phone: [facility]Emergency Department Start: 11-18-2021 End: 11-18-[address] Aleena London Work Phone: [facility] Neurology Start: 11-18-2021 End: 11-18-[address] Aleena London Work Phone: [facility] Internal Medicine Start: 11-01-2021 End: 11-01-[address] Aleena London Work Phone: [facility] Internal Medicine Start: 10-29-2021 End: 10-29-[address] Aleena London Work Phone: [facility] Start: 10-26-2021 Non-patient / Non-visit Dr. Taz London Work Phone: [facility] Start: 10-26-2021 End: 10-26-[address] Aleena London Work Phone: [facility]-Cardiovascular Services Start: 10-15-2021 End: 10-15-[address] Aleena London Work Phone: [facility] Internal Medicine Start: 10-13-2021 End: 10-13-[address] Aleena Lonodn Work Phone: [facility] Start: 10-11-2021 End: 10-11-[address] Aleena Leiva Phone: [facility]-Laboratory, Specimen Start: 10-11-2021 End: 10-11-[address] Aleena Leiva Phone: [facility] [place] [facility] Start: 09-29-2021 End: 09-29-[address] Aleena London Work Phone: [facility]-Physical Therapy Start: 09-27-2021 End: 09-27-[address] Aleena Leiva Phone: [facility] Start: 09-23-2021 End: 09-23-[address] Aleena Leiva Phone: [facility], [facility] Start: 09-22-2021 End: 09-22-[address] Aleena Leiva Phone: [facility] Internal Medicine Start: 09-15-2021 End: 09-15-[address] Aleena Leiva Phone: [facility] Gastroenterology Start: 09-09-2021 End: 09-09-[address] Aleena Leiva Phone: [facility] [place] [facility] Start: 09-07-2021 End: 09-07-[address] Aleena Leiva Phone: [facility] Start: 08-25-2021 End: 08-25-2021 Emergency department patient visit Dr. Aleena Leiva Phone: [facility]Emergency Department Start: 08-20-2021 End: 08-20-2021 Emergency department patient visit Dr. Aleena Leiva Phone: [facility]Emergency [facility] Start: 08-11-2021 End: 08-11-[address] Aleena London Work Phone: [facility] Internal Medicine Start: 08-11-2021 End: 08-11-[address] Aleena London Work Phone: [facility] Gastroenterology Start: 08-09-2021 End: 08-09-[address] Aleena London [facility] Phone[facility] Start: 07-29-[address] Jorge London Work Phone: [facility]Physical Therapy Start: 07-26-2021 End: 07-26-[address] Aleena London Work Phone: [facility]-Cardiovascular Services Start: 07-25-[address] Lindy London Work Phone: [facility]Card[facility] Start: 07-16-2021 End: 07-16-[address] Aleena London Work Phone: [facility] Start: 07-15-2021 End: 07-15-[address] Aleena London Work Phone: [facility] Start: 07-06-2021 End: 07-06-[address] Aleena London Work Phone: [facility] Start: 06-29-2021 End: 06-29-[address] Aleena London Work Phone: [facility] Gastroenterology Start: 06-28-2021 End: 06-28-[address] Aleena London Work Phone: [facility] Internal Medicine Start: 06-21-2021 End: 06-21-2021 Emergency department patient visit Dr. Aleena London Work Phone: [facility]Emergency Department Start: 06-11-2021 End: 06-11-[address] Aleena London Work Phone: [facility]-Ultrasound, [facility] Start: 06-08-2021 End: 06-08-[address] Aleena London Work Phone: [facility]-Laboratory, [facility] Start: 06-03-2021 End: 06-03-[address] Aleena London Work Phone: [facility] Internal Medicine Start: 05-24-2021 End: 05-24-[address] [facility] Start: 05-05-2021 End: 05-05-[address] Aleena London Work Phone: [facility]Pulmonary Medicine [facility] Start: 05-03-2021 End: 05-03-[address] Aleena London Work Phone: [facility] Internal Medicine Start: 12-31-2020 End: 12-31-2020 Subsequent hospital visit by physician [facility] Work Phone: Radiology Comment on above: Acute pain of left s houlder [M25.512] Start: 06-25-2020 End: 06-25-2020 Subsequent hospital visit by physician [facility] Work Phone: Radiology Comment on above: Bronchitis [J40] Start: 11-29-2017 End: 11-29-2017 Emergency department patient visit Debora Quiroz Facility:[facility] Procedures Date Procedure Procedure Detail Performing Clinician Start: 09-29-2023 X-ray of soft tissue of neck Dr. Aleena London Work Phone: Start: 09-29-2023 Bilateral mammography D dillan London Work Phone: Start: 09-29-[address] Aleena London Work Phone: Start: 09-21-[address] Aleena London Work Phone: Start: 09-05-2023 Investigation of tra nsfusion reaction Dr. Aleena London Work Phone: Start: 09-05-2023 Dr. Lindy London Work Phone: Start: 08-31-[address] Aleena London Work Phone: Start: 08-11-2023 MRI of cervical spine D dillan London Work Phone: Start: 07-25-2023 CT of abdomen and pe lvis without contrast Dr. Aleena London Work Phone: Start: 07-24-[address] Nannette London Work Phone: Start: 06-29-2023 X-ray of cervical spine Dr. Aleena London Work Phone: Start: 05-16-2023 Ultrasound elastogra phy of liver Dr. Aleena Lodnon Work Phone: Start: 04-17-2023 Plain chest X-ray Dr. Nannette London Work Phone: Start: 04-11-2023 Bilateral mammography Yanet London Work Phone: Start: 04-11-[address] Aleena London Work Phone: Start: 03-09-[address] Aleena London Work Phone: Start: 02-14-2023 Decompression of med keyon nerve Dr. Aleena London Work Phone: Start: 02-13-2023 X-ray of cervical spine Dr. Aleena London Work Phone: Start: 02-13-2023 X-ray of lumbar spin e, two or three views Dr. Aleena London Work Phone: Start: 02-08-2023 Computed tomography of abdomen and pelvis with intravenous contrast Dr. Aleena London Work Phone: Start: 12-25-2022 Plain chest X-ray Dr. Nannette London Work Phone: Start: 12-15-2022 Cytopathology proced ure, preparation of smear, genital source Dr. Aleena London Work Phone: Start: 12-15-2022 Investigation of tra nsfusion reaction Dr. Aleena London Work Phone: Start: 12-06-[address] Nannette London Work Phone: Start: 11-28-2022 Radionuclide imaging of liver and/or biliary tract using radioactive isotope Dr. Aleena London Work Phone: Start: 11-25-[address] Aleena London Work Phone: Start: 11-19-2022 Computed tomography of abdomen and pelvis with intravenous contrast Dr. Aleena London Work Phone: Start: 11-08-[address] Aleena London Work Phone: Start: 11-08-[address] Aleena London Work Phone: Start: 10-07-[address] Nannette London Work Phone: Start: 09-20-2022 Plain X-ray of shoulder Dr. Aleena London Work Phone: Start: 08-17-2022 Plain chest X-ray Dr. Nannette London Work Phone: Start: 08-17-2022 CT angiography of he ad and neck Dr. Aleena London Work Phone: Start: 07-25-[address] Aleena London Work Phone: Start: 07-25-[address] Aleena London Work Phone: Start: 07-17-2022 Plain chest X-ray Dr. Nannette London Work Phone: Start: 07-13-[address] Nannette London Work Phone: Start: 07-13-[address] Aleena London Work Phone: Start: 06-22-[address] Nannette London Work Phone: Start: 06-22-[address] Aleena London Work Phone: Start: 06-10-2022 Computed tomography of abdomen and pelvis with intravenous contrast Dr. Aleena London Work Phone: Start: 04-15-[address] Lindy London Work Phone: Start: 04-14-2022 Computed tomography of abdomen and pelvis with intravenous contrast Dr. Aleena London Work Phone: Start: 04-12-2022 Computed tomography of abdomen and pelvis with intravenous contrast Dr. Aleena London Work Phone: Start: 04-12-2022 CT angiography of ch est with contrast Dr. Aleena London Work Phone: Start: 04-12-2022 Plain chest X-ray Dr. Nannette Lonodn Work Phone: Start: 03-30-2022 Computed tomography of abdomen and pelvis with contrast Dr. Aleena London Work Phone: Start: 03-22-2022 Diagnostic radiograp hy of abdomen Dr. Aleena London Work Phone: Start: 03-22-[address] Jennifer London Work Phone: Start: 03-04-2022 CT angiography of ch est with contrast Dr. Aleena London Work Phone: Start: 02-28-2022 X-ray of lumbosacral spine Dr. Aleena London Work Phone: Start: 02-15-2022 CT of abdomen and pe lvis without contrast Dr. Aleena London Work Phone: Start: 02-10-2022 Ultrasonography of t hyroid and parathyroid Dr. Aleena London Work Phone: Start: 01-11-[address] Aleena London Work Phone: Start: 01-11-[address] Aleena London Work Phone: Start: 12-23-2021 Computed tomography of abdomen and pelvis with intravenous contrast Dr. Aleena London Work Phone: Start: 12-07-2021 CT of soft tissues o f neck with contrast Dr. Aleena London Work Phone: Start: 11-27-2021 CT of head without contrast Dr. Aleena London Work Phone: Start: 09-23-[address] Nannette London Work Phone: Start: 09-23-2021 Screening mammography Yanet London Work Phone: Start: 09-23-[address] Aleena London Work Phone: Start: 08-20-2021 Computed tomography of abdomen and pelvis with intravenous contrast Dr. Aleena London Work Phone: Start: 07-06-2021 Elastography Parenchyma/Organ Dr. Aleena London Work Phone: Start: 06-21-2021 Computed tomography of abdomen and pelvis with intravenous contrast Dr. Aleena London Work Phone: Start: 06-11-[address] Aleena London Work Phone: Start: 12-31-2020 Radex shoulder compl ete minimum 2 views Kavita Jurado PA-C Work Phone: Start: 06-25-2020 Radiologic exam ches t 2 views Nehemias Mazariegos MD Work Phone: Start: 04-19-2017 End: 04-19-2017 Routine OB Visit (Global) Hanh mE gs CLINICAL SUPPORT MANAGER Work Phone: Start: 04-10-2017 End: 04-10-2017 Routine OB Visit (Global) Cassidy villatoro MD Work Phone: Start: 03-13-2017 End: 03-13-2017 Routine OB Visit (Global) Hanh Em gs CLINICAL SUPPORT MANAGER Work Phone: Start: 03-03-2017 End: 03-03-2017 Routine OB Visit (Global) Hanh Em gs CLINICAL SUPPORT MANAGER Work Phone: Start: 02-17-2017 End: 02-17-2017 Routine OB Visit (Global) Cassidy villatoro MD Work Phone: Start: 02-17-2017 End: 02-17-2017 Routine OB Visit (Global) Cassidy villatoro MD Work Phone: Start: 02-09-2017 End: 02-20-2017 *CBC with Differential Cassidy paeg MD Work Phone: Start: 02-09-2017 End: 02-20-2017 [...] 01-09-2017 Us uterus limited 1/> fetuses Cassidy oMore MD Work Phone: Start: 01-09-2017 End: 01-09-2017 [...] us < 14 wks, single fetus Cassidy silver MD Work Phone: Anaerobic microbial culture Dr. Aleena London Work Phone: Anaerobic microbial culture Dr. Aleena London Work Phone: Bacteria identified in Blood by Culture Dr. Aleena London Work Phone: Bacteria identified in Urine by Culture Dr. Aleena London Work Phone: Fracture of femur (disorder) ALAN QUINN DO Fracture of forearm (disorder) ALAN QUINN DO Investigation of tra nsfusion reaction Dr. Aleena London Work Phone: Investigation of tra nsfusion reaction Dr. Aleena London Work Phone: Microbial culture, routine D r. Aleena London Work Phone: Microbial culture, routine D r. Aleena London Work Phone: SARS-CoV-2 & FLU Ant igen (Rapid) Dr. Aleena London Work Phone: Urine culture Dr. Aleena London Work Phone: Urine culture Dr. Aleena London Work Phone: Urine culture Dr. Aleena London Work Phone: Dr. Aleena frankel Work Phone: Dr. Aleena frankel Work Phone: Dr. Aleena frankel Work Phone: Plan of Treatment Date Care Activity Detail Author Start: 07-20-[address] [facility] Comment on above: Postponed from 04/29 (Postponed To Appropriate Date) Start: 2047 RSV Immunization age d 60 or older (1 - 1-dose 60+ series) RSV Immunization aged 60 or older (1 - 1-dose 60+ series) [facility] Start: 2037 Zoster Vaccines (1 of 2) Zoste r Vaccines (1 of 2) [facility] Start: 08-11-2030 Tetanus vaccination Tetanus: Every 1 0yrs [facility] Start: 08-11-2030 Urine microalbumin profile DTa P,Tdap,Td Vaccine (2 - Td or Tdap) [facility] Start: 09-20-2024 End: 09-20-2024 Patient encounter procedure 09/20/2024 10:30 AM EDT Office Visit [facility] [address] [place] [phone] Tomasz Ace Jr., DPM [address] [place] [address] [facility] Start: 01-21-2024 Covid-19 Vaccine ( season) Covid-19 Vaccine () [facility] Start: 01-21-2024 Influenza vaccination C [facility] Start: 12-19-2023 End: 12-19-2023 Patient encounter procedure Radiology Comment on above: RT FOOT BONE SPUR RT FOOT PA INFUL SEVERE Start: 09-29-2023 [facility] Start: 09-28-2023 HPV Testing HPV Testing [facility] Start: 09-28-2023 Pap Testing Pap Testing [facility] Start: 09-28-2023 Screening for malign ant neoplasm of cervix [facility] Start: 09-05-2023 Chlamydia deoxyribon ucleic acid detection [facility] Start: 09-05-2023 Source specific culture [facility] Start: 09-05-2023 [facility] Start: 07-26-2023 [facility] Start: 07-18-2023 [facility] Start: 07-06-[address] [facility] Work Phone: Start: 06-29-2023 [facility] Start: 05-16-2023 Ultrasound elastogra phy of liver [facility] Start: 05-04-2023 [facility] Start: 05-03-2023 Cytoplasmic ANCA Screen [facility] Start: 04-19-[address] [facility] Work Phone: Start: 04-11-2023 Digital breast tomosynthesis bilateral [facility] Start: 03-16-[address] [facility] Work Phone: Start: 02-14-2023 Anes nerve muscle td n fascia&bursa forearm wrist [facility] Start: 02-14-2023 Neuroplasty &/transp os median nrv carpal tunne [facility] Start: 02-14-2023 Application of ice c ollar, cap or bag [facility] Start: 02-14-2023 Catheterization of vein [facility] Start: 02-14-2023 Elevation of affecte d extremity [facility] Start: 02-14-2023 Following clinical p athway protocol [facility] Start: 02-14-2023 Patient discharge [facility] Start: 02-14-2023 Procedure discontinued [facility] Start: 02-14-2023 Taking patient vital signs [facility] Start: 02-14-2023 Vital signs measurements [facility] Start: 02-14-2023 [facility] Start: 02-14-2023 Medication education [facility] Start: 02-13-[address] [facility] Work Phone: Start: 02-13-2023 X-ray of cervical spine [facility] Start: 02-13-2023 X-ray of lumbar spin e, two or three views [facility] Start: 02-13-2023 XR Cervical spine 2 or 3 Views [facility] Start: 02-13-2023 XR Lumbar spine 2 or 3 Views [facility] Start: 01-20-2023 Covid-19 Vaccine ( season) Covid-19 Vaccine ( season) [facility] Start: 01-20-2023 Influenza vaccination Influenza Vacc ine (#1) [facility] Start: 09-02-[address] [facility] Work Phone: Start: 07-17-2022 Plain chest X-ray [facility] Start: 07-17-2022 XR Chest PA and Lateral [facility] Start: 07-14-2022 Celiac disease screen [facility] Start: 07-14-2022 [facility] Start: 05-30-[address] [facility] Work Phone: Start: 04-16-2022 Patient discharge [facility] Start: 04-15-2022 Ambulation therapy management [facility] Start: 04-15-2022 Continuous pulse oximetry [facility] Start: 04-15-2022 Elevation of head of bed [facility] Start: 04-15-2022 Incentive spirometry [facility] Start: 04-15-2022 Measuring intake and output [facility] Start: 04-15-2022 Notification of physician [facility] Start: 04-15-2022 Oxygen therapy [facility] Start: 04-15-2022 Patient education [facility] Start: 04-15-2022 Procedures relating to eating and drinking [facility] Start: 04-15-2022 Taking patient vital signs [facility] Start: 04-15-2022 [facility] Start: 04-15-2022 Introduction of urin cori catheter [facility] Start: 04-14-2022 [facility] Work Phone: Start: 04-13-2022 Application of intermittent pneumatic compression device [facility] Start: 04-13-2022 Consultation [facility] Start: 04-13-2022 Catheterization of vein [facility] Start: 04-12-2022 Following clinical p athway protocol [facility] Start: 04-12-2022 Ambulation without limitation [facility] Start: 04-12-2022 Assessment of risk o f venous thromboembolism [facility] Start: 04-12-2022 Insertion of cathete r into peripheral vein [facility] Start: 04-12-2022 Providing care accor ding to standard [facility] Start: 04-12-2022 [facility] Start: 04-12-2022 Verification routine [facility] Work Phone: Start: 04-12-[address] [facility] Start: 04-12-2022 End: 04-12-2022 Blood culture [facility] Work Phone: Start: 04-12-2022 Patient referral to dietitian [facility] Start: 03-30-2022 Culture bacterial quanttative colony count urine [facility] Start: 03-30-2022 Culture bct isol&prs mptv id isolate ea urine [facility] Start: 03-23-2022 Patient discharge [facility] Start: 03-22-2022 Ambulation therapy management [facility] Start: 03-22-2022 Continuous pulse oximetry [facility] Start: 03-22-2022 Elevation of head of bed [facility] Start: 03-22-2022 Incentive spirometry [facility] Start: 03-22-2022 Measuring intake and output [facility] Start: 03-22-2022 Notification of physician [facility] Start: 03-22-2022 Oxygen therapy [facility] Start: 03-22-2022 Patient education [facility] Start: 03-22-2022 Procedures relating to eating and drinking [facility] Start: 03-22-2022 Taking patient vital signs [facility] Start: 03-22-2022 Wound care [facility] Start: 03-22-2022 [facility] Start: 03-22-2022 Introduction of urin cori catheter [facility] Start: 03-22-[address] [facility] Start: 03-04-2022 [facility] Start: 01-03-2022 Fat [Presence] in Stool [facility] Work Phone: Start: 10-23-2021 Annual PCP Team [employer]ilingual Call [employer] Representative sarai Disease Visit Annual PCP Team Chronic Disease Visit [facility] Start: 09-27-2021 Screening for malign ant neoplasm of cervix Cervical Cancer Screening [facility] Start: 09-22-[address] [facility] Work Phone: Start: 08-11-[address] [facility] Work Phone: Start: 06-03-[address] [facility] Work Phone: Start: 05-10-2017 End: 05-10-[address] [facility] Start: 2017 Screening for malign ant neoplasm of cervix [facility] Start: 04-19-2017 End: 04-19-[address] [facility] Start: 04-10-2017 End: 04-10-[address] [facility] Start: 03-13-2017 End: 03-13-2017 Us preg uterus after 1st trimest 05/22 gestation US OB, >[address] [facility] Start: 03-13-2017 End: 03-13-2017 Appointment Appointment [facility] Start: 03-10-2017 End: 03-10-2017 Appointment Appointment [facility] Start: 03-03-2017 End: 03-13-2017 Us abdominal real time w/image limited US Kidney [facility] Start: 03-03-2017 End: 03-03-2017 Appointment Appointment [facility] Start: 03-01-2017 End: 03-01-2017 Appointment Appointment [facility] Start: 02-17-2017 End: 02-17-2017 Mri brain brain stem w/o contrast material MRI Brain [facility] Work Phone: Start: 02-17-2017 End: 02-17-2017 Appointment [facility] Start: 02-17-2017 End: 02-17-2017 Mri brain w/o dye MRI Brain [facility] Start: 02-09-2017 End: 02-09-2017 *CBC with Differential *CBC with Differential [facility] Start: 02-09-2017 End: 02-09-2017 *GC/Chlamydia *GC/Chlamydia [facility] Start: 02-09-2017 End: 02-11-2017 *HEBSAG - Hep B Surface Antigen 6510 *HEBSAG - Hep B Surface Antigen 6510 [facility] Start: 02-09-2017 End: 02-11-2017 *HIV antibody *HIV antibody [facility] Start: 02-09-2017 End: 02-09-2017 *TS Type and Screen *TS Type and Screen [facility] Start: 02-09-2017 End: 02-09-2017 Hemoglobin A1c/Hemoglobin.total mass fraction (Bld) *HgA1C [facility] Start: 02-09-2017 End: 02-11-2017 Reagin antibody presence *RPR [facility] Start: 02-09-2017 End: 02-11-2017 Rubella virus Ab [Units/volume] in Serum *Rubella Screen [facility] Start: 02-09-2017 End: 02-09-2017 Urine culture, bacteria *CUUR - Culture, Urine (Olema Count) [facility] Start: 02-09-2017 End: 03-13-2017 Us preg uterus after 1st trimest 1/ gestation US OB, >14 weeks [facility] Start: 02-09-2017 End: 02-09-2017 Appointment Appointment [facility] Start: 02-09-2017 End: 02-09-2017 *CBC with Differential *CBC with Differential [facility] Start: 02-09-2017 End: 02-09-2017 *GC/Chlamydia *GC/Chlamydia [facility] Start: 02-09-2017 End: 02-11-2017 *HEBSAG - Hep B Surface Antigen 6510 *HEBSAG - Hep B Surface Antigen 6510 [facility] Start: 02-09-2017 End: 02-11-2017 *HIV antibody *HIV antibody [facility] Start: 02-09-2017 End: 02-09-2017 *TS Type and Screen *TS Type and Screen [facility] Start: 02-09-2017 End: 02-09-2017 HbA1c *HgA1C [facility] Start: 02-09-2017 End: 02-09-2017 Ob us >/= 14 wks, sngl fetus US OB, >14 weeks [facility] Start: 02-09-2017 End: 02-11-2017 Reagin antibody presence *RPR [facility] Start: 02-09-2017 End: 02-11-2017 Rubella virus Ab [Units/volume] in Serum *Rubella Screen [facility] Start: 02-09-2017 End: 02-09-2017 Urine culture, bacteria *CUUR - Culture, Urine (Olema Count) [facility] Start: 02-06-2017 End: 02-09-2017 Thyroid stimulating hormone (TSH) *TSH [facility] Start: 02-06-2017 End: 02-09-2017 Thyroxine (T4) *T4 TT4 (Thyroxine Total) [facility] Start: 02-06-2017 End: 02-09-2017 Thyroid stimulating hormone (TSH) *TSH [facility] Start: 02-06-2017 End: 02-09-2017 Thyroxine (T4) *T4 TT4 (Thyroxine Total) [facility] Start: 01-17-2017 End: 01-17-2017 Bacteria genital culture *CUV - Culture, VAG/CX Comprehensive [facility] Start: 01-17-2017 End: 01-17-2017 Appointment Appointment [facility] Start: 01-17-2017 End: 01-17-2017 Bacteria genital culture *CUV - Culture, VAG/CX Comprehensive [facility] Start: 01-09-2017 End: 01-09-2017 Appointment Appointment [facility] Start: 01-09-2017 End: 01-09-2017 *ABS Antibody Screen, Indirect *ABS Antibody Screen, Indirect [facility] Start: 01-09-2017 End: 01-09-2017 *Blood Typing, RH *Blood Typing, RH [facility] Start: 01-09-2017 End: 01-09-2017 *CBC with Differential *CBC with Differential [facility] Start: 01-09-2017 End: 01-09-2017 *GC/Chlamydia *GC/Chlamydia [facility] Start: 01-09-2017 End: 01-09-2017 *HEBSAG - Hep B Surface Antigen 6510 *HEBSAG - Hep B Surface Antigen 6510 [facility] Start: 01-09-2017 End: 01-09-2017 *HIV antibody *HIV antibody [facility] Start: 01-09-2017 End: 01-09-2017 *TS Type and Screen *TS Type and Screen [facility] Start: 01-09-2017 End: 01-09-2017 GTT (glucose after 1hr PO glucose) *Glucose, Post Glucose Dose [facility] Start: 01-09-2017 End: 01-09-2017 Reagin antibody presence *[facility] Start: 01-09-2017 End: 01-09-2017 Rubella virus Ab [Units/volume] in Serum *Rubella Screen [facility] Start: 01-09-2017 End: 01-09-2017 Thyroid stimulating hormone (TSH) *TSH [facility] Start: 01-09-2017 End: 01-09-2017 Thyroxine (T4) *T4 TT4 (Thyroxine Total) [facility] Start: 01-09-2017 End: 01-09-2017 Urine culture, bacteria *CUUR - Culture, Urine (Olema Count) [facility] Start: 01-09-2017 End: 01-09-2017 *ABS Antibody Screen, Indirect *ABS Antibody Screen, Indirect [facility] Start: 01-09-2017 End: 01-09-2017 *Blood Typing, RH *Blood Typing, RH [facility] Start: 01-09-2017 End: 01-09-2017 *CBC with Differential *CBC with Differential [facility] Start: 01-09-2017 End: 01-09-2017 *GC/Chlamydia *GC/Chlamydia [facility] Start: 01-09-2017 End: 01-09-2017 *HEBSAG - Hep B Surface Antigen 6510 *HEBSAG - Hep B Surface Antigen 6510 [facility] Start: 01-09-2017 End: 01-09-2017 *HIV antibody *HIV antibody [facility] Start: 01-09-2017 End: 01-09-2017 *TS Type and Screen *TS Type and Screen [facility] Start: 01-09-2017 End: 01-09-2017 GTT (glucose after 1hr PO glucose) *Glucose, Post Glucose Dose [facility] Start: 01-09-2017 End: 01-09-2017 Reagin antibody presence *RPR [facility] Start: 01-09-2017 End: 01-09-2017 Rubella virus Ab [Units/volume] in Serum *Rubella Screen [facility] Start: 01-09-2017 End: 01-09-2017 Thyroid stimulating hormone (TSH) *TSH [facility] Start: 01-09-2017 End: 01-09-2017 Thyroxine (T4) *T4 TT4 (Thyroxine Total) [facility] Start: 01-09-2017 End: 01-09-2017 Urine culture, bacteria *CUUR - Culture, Urine (Olema Count) [facility] Start: 01-02-2017 End: 01-09-2017 Us uterus 14 wk transabdl 05/22 gestat US OB, <14 weeks [facility] Start: 01-02-2017 End: 01-09-2017 Ob us < 14 wks, single fetus US OB, <14 weeks [facility] Start: 2008 Screening for malign ant neoplasm of cervix Pap Smear [facility] Start: 2006 DTaP/Tdap/Td Vaccine s (1 - Tdap) DTaP/Tdap/Td Vaccines (1 - Tdap) [facility] Start: 2006 Hepatitis B Vaccine (1 of 3 - 19+ 3-dose series) Hepatitis B Vaccine (1 of 3 - 19+ 3-dose series) [facility] Start: 2006 Pneumococcal Vaccine : Ped or At-Risk (1 of 2 - PCV) Pneumococcal Vaccine: Ped or At-Risk (1 of 2 - PCV) [facility] Start: 2005 Anxiety Screening Anxiety Screening [facility] Start: 2005 Depression Screening Depression Scre ening [facility] Start: 2005 Hepatitis C screening Hepatitis C Sc reening [facility] Start: 2002 HIV screening HIV Screening [facility] Start: 1999 Depression Screening [facility] Start: 1990 History and physical examination, annual for health maintenance Wellness Visit [facility] Start: 1988 MMR Vaccines (1 of 1 - Standard series) MMR Vaccines (1 of 1 - Standard series) [facility] Start: 1988 Varicella vaccination Varicell a Vaccines (1 of 2 - 2-dose childhood series) [facility] Start: 1987 Covid-19 Vaccine (#1) Covid-19 Vacci ne (#1) [facility] Start: 1987 Hepatitis B Vaccine (1 of 3 - 3-dose series) Hepatitis B Vaccine (1 of 3 - 3-dose series) [facility] Start: 1987 Hepatitis B Vaccines (1 of 3 - 3-dose series) Hepatitis B Vaccines (1 of 3 - 3-dose series) [facility] Start: 1987 HIV screening HIV Screening [facility] river Anaerobic Culture Anaerobic Culture [facility] Work Phone: Anaerobic microbial culture Anaerobic Culture [facility] Work Phone: Antibody to lupus La protein measurement [facility] Antibody to SS-A measurement [facility] Bacteria identified in Blood by Culture Blood Culture [facility] Work Phone: Bacteria identified in Unspecified specimen by Anaerobe culture [facility] Work Phone: Blood culture [facility] Work Phone: Centromere protein B Ab [Units/volume] in Serum [facility] Chromatin Ab [Units/volume] in Serum or Plasma [facility] DNA double strand Ab [Units/volume] in Serum [facility] Fat [Mass/mass] in Stool [facility] Work Phone: Fat.neutral [Presenc e] in Stool [facility] Work Phone: Alise-1 extractable nuc lear Ab [Units/volume] in Serum [facility] Lipid 1996 panel - S luisa or Plasma [facility] Measurement of immunoglobulin A in serum specimen [facility] Microbial culture, routine Wound Culture [facility] Work Phone: MR Biliary ducts and Pancreatic duct contrast [facility] Work Phone: Neisseria gonorrhoea e rRNA [Presence] in Unspecified specimen by JONE with probe detection [facility] Neutrophil cytoplasm ic Ab.classic [Units/volume] in Serum [facility] P-ANCA measurement [facility] Patient Education [facility] Work Phone: Patient referral [facility] Work Phone: PCR test for Chlamyd ia trachomatis [facility] Radionuclide gastric emptying study [facility] Work Phone: Radionuclide gastric emptying study [facility] Radionuclide imaging of liver and/or biliary tract using radioactive isotope [facility] Work Phone: SCL-70 extractable n uclear Ab [Units/volume] in Serum by Immunoassay [facility] [place] extractable nu clear Ab [Presence] in Serum [facility] Tissue transglutamin ase IgA Ab [Units/volume] in Serum [facility] Tissue transglutamin ase IgG Ab [Units/volume] in Serum [facility] Ultrasound elastography [facility] Work Phone: Ultrasound elastography [facility] Urine test [facility] Work Phone: US Abdomen limited [facility] US Pelvis [facility] US Pelvis [facility] End: 12-19-2024 XR Foot - right AP and Lateral and oblique XR FOOT GENERAL 3V AP/LAT/OBL RIGHT Radiology Routine Pain 1 Occurrences starting 11/20/2023 until 12/19/2024 [facility] Work Phone: Comment on above: 1 Occurrences starti ng 11/20/2023 until 12/19/2024 [facility] Immunizations Immunization Date Immunization Notes Care Provider Fa cility 08-11-2020 tetanus toxoid, redu wendy diphtheria toxoid, and acellular pertussis vaccine, adsorbed Dr. Aleena London Work Phone: [facility] 04-16-2019 influenza virus vaccine, unspecified formulation Nima Kaur MD Work Phone: [facility] 08-29-2012 RHO(D) immune globul in- IV or IM Nima Kaur MD Work Phone: [facility] Work Phone: 06-22-2012 RHO(D) immune globul in- IV or IM Nima Kaur MD Work Phone: [facility] 06-02-2012 RHO(D) immune globul in- IV or IM Nima Kaur MD Work Phone: [facility] Payers Date Payer Category Payer Unknown [id number] 03-05-2024 Unknown [id number] 10-13-2023 Self-pay [id number] 08-20-2021 Medicaid (Managed Care) [facility]ICA[facility] [id number] 08-20-2021 Unknown [id number] 07-20-2020 Medicaid [id number] 09-20-2019 Private Health Insurance [facility] [id number] 09/20/2019-05/21/2020 [address] [address] [place] [address] HMO [id number] 11-29-2017 Unknown 08-20-2016 Unknown [id number] 1987 Unknown [id number] 2.16840.1.138784.3.579.2. 1069 1987 Unknown [id number] 2.16.840.1.991370.3.579.2. 903 1987 Unknown [id number] 2.16840.1.578245.3.579.2. 627 1987 Unknown [id number] 2.16840.1.748953.3.579.2. 627 1987 Unknown [id number] 2.16840.1.292011.3.579.2. 903 1987 Unknown [id number] 2.16.840.1.351151.3.579.2. 903 1987 Unknown [id number] 2.16.840.1.187085.3.579.2. 903 1987 Unknown [id number] 2.16.840.1.360452.3.579.2. 902 1987 Unknown [id number] 2.16.840.1.748132.3.579.2. 902 1987 Unknown [id number] 2.16.840.1.948566.3.579.2. 902 1987 Unknown [id number] 2.16.840.1.849959.3.579.2. 902 1987 Unknown [id number] 2.16.840.1.209088.3.579.2. 902 1987 Unknown [id number] 2.16.840.1.377329.3.579.2. 902 1987 Unknown [id number] 2.16.840.1.354901.3.579.2. 902 1987 Unknown [id number] 2.16.840.1.129046.3.579.2. 902 1987 Unknown [id number] 2.16.840.1.774159.3.579.2. 902 1987 Unknown [id number] 2.16.840.1.585743.3.579.2. 902 1987 Unknown [id number] 2.16.840.1.299831.3.579.2. 902 1987 Unknown [id number] 2.16.840.1.705016.3.579.2. 902 1987 Unknown [id number] 2.16.840.1.254097.3.579.2. 902 1987 Unknown [id number] 2.16.840.1.444827.3.579.2. 902 1987 Unknown [id number] 2.16.840.1.732727.3.579.2. 902 1987 Unknown [id number] 2.16.840.1.204902.3.579.2. 902 1987 Unknown [id number] 2.16.840.1.457116.3.579.2. 902 1987 Unknown [id number] 2.16.840.1.678093.3.579.2. 902 1987 Unknown [id number] 2.16.840.1.868343.3.579.2. 902 1987 Unknown [id number] 2.16.840.1.831261.3.579.2. 902 1987 Unknown [id number] 2.16.840.1.697955.3.579.2. 902 1987 Unknown [id number] 2.16.840.1.854561.3.579.2. 902 1987 Unknown [id number] 2.16.840.1.081328.3.579.2. 902 1987 Unknown [id number] 2.16.840.1.195239.3.579.2. 902 Unknown [id number] Unknown [id number] Unknown [id number] 2.16.840.1.417872.3.579.2. 462 Unknown [id number] 2.16.840.1.306835.3.579.2. 462 Unknown [id number] 2.16.840.1.932195.3.579.2. 462 Unknown [id number] 2.16.840.1.840475.3.579.2. 462 Unknown [id number] 2.16.840.1.834090.3.579.2. 462 Unknown [id number] 2.16.840.1.065287.3.579.2. 462 Unknown [id number] 2.16.840.1.502122.3.579.2. 462 Unknown [id number] 2.16.840.1.259334.3.579.2. 462 Unknown [id number] 2.16.840.1.473717.3.579.2. 462 Unknown [id number] 2.16.840.1.742691.3.579.2. 462 Unknown [id number] 2.16.840.1.914306.3.579.2. 462 Unknown [id number] 2.16.840.1.557096.3.579.2. 462 Unknown [id number] 2.16840.1.520937.3.579.2. 462 Unknown [id number] 2.16.840.1.532375.3.579.2. 462 Unknown [id number] 2.16840.1.903472.3.579.2. 462 Unknown [id number] 2.16840.1.521299.3.579.2. 462 Unknown [id number] 2.16840.1.496719.3.579.2. 462 Unknown [id number] 2.16840.1.186445.3.579.2. 462 Unknown [id number] 2.16.840.1.337343.3.579.2. 462 Unknown [id number] 2.16840.1.050696.3.579.2. 462 Unknown [id number] 2.16840.1.950180.3.579.2. 462 Unknown [id number] 2.16.840.1.498196.3.579.2. 462 Unknown [id number] 2.16.840.1.858202.3.579.2. 462 Unknown [id number] 2.16.840.1.015603.3.579.2. 462 Unknown [id number] 2.16840.1.541034.3.579.2. 462 Unknown [id number] 2.16.840.1.644874.3.579.2. 462 Unknown [id number] 2.16.840.1.541774.3.579.2. 462 Unknown [id number] 2.16.840.1.816404.3.579.2. 462 Unknown [id number] 2.16.840.1.485470.3.579.2. 462 Unknown [id number] 2.16.840.1.817795.3.579.2. 462 Unknown [id number] 2.16.840.1.411593.3.579.2. 462 Unknown [id number] 2.16.840.1.905406.3.579.2. 462 Unknown [id number] 2.16.840.1.672224.3.579.2. 462 Unknown [id number] 2.16840.1.854497.3.579.2. 462 Unknown [id number] 2.16.840.1.572593.3.579.2. 462 Unknown [id number] 2.16.840.1.909268.3.579.2. 462 Unknown [id number] 2.16.840.1.771043.3.579.2. 462 Unknown [id number] 2.16.840.1.560258.3.579.2. 462 Unknown [id number] 2.16.840.1.081336.3.579.2. 462 Unknown [id number] 2.16.840.1.905274.3.579.2. 462 Unknown [id number] 2.16.840.1.885150.3.579.2. 462 Unknown [id number] 2.16.840.1.818346.3.579.2. 462 Unknown [id number] 2.16.840.1.587715.3.579.2. 462 Unknown [id number] 2.16.840.1.191250.3.579.2. 462 Unknown [id number] 2.16.840.1.693604.3.579.2. 462 Unknown [id number] 2.16.840.1.872649.3.579.2. 462 Unknown [id number] 2.16.840.1.701906.3.579.2. 462 Unknown [id number] 2.16.840.1.570047.3.579.2. 462 Unknown [id number] 2.16.840.1.205166.3.579.2. 462 Unknown [id number] 2.16.840.1.470124.3.579.2. 462 Unknown [id number] 2.16.840.1.223421.3.579.2. 462 Unknown [id number] 2.840.1.856175.3.579.2. 462 Unknown [id number] 2.840.1.151911.3.579.2. 462 Unknown [id number] 2.16.840.1.385958.3.579.2. 462 Unknown [id number] 2.16840.1.118776.3.579.2. 462 Unknown [id number] 2.16840.1.842382.3.579.2. 462 Unknown [id number] 2.840.1.565521.3.579.2. 462 Unknown [id number] 2.16840.1.466473.3.579.2. 462 Unknown [id number] 2.16.840.1.679832.3.579.2. 462 Unknown [id number] 2.16.840.1.179903.3.579.2. 462 Unknown [id number] 2.16.840.1.690264.3.579.2. 462 Unknown [id number] 2.16840.1.632927.3.579.2. 462 Unknown [id number] 2.16.840.1.935608.3.579.2. 462 Unknown [id number] 2.840.1.580501.3.579.2. 462 Unknown [id number] 2.16.840.1.419168.3.579.2. 462 Unknown [id number] 2.840.1.220243.3.579.2. 462 Unknown [id number] 2.840.1.995876.3.579.2. 462 Unknown [id number] 2.840.1.663307.3.579.2. 462 Unknown [id number] 2.840.1.040429.3.579.2. 462 Unknown [id number] 2.840.1.268457.3.579.2. 462 Unknown [id number] 2.840.1.375297.3.579.2. 462 Unknown [id number] 2.840.1.407287.3.579.2. 462 Unknown [id number] 2.840.1.080644.3.579.2. 462 Unknown [id number] 2.840.1.949807.3.579.2. 462 Unknown [id number] 2.840.1.002955.3.579.2. 462 Unknown [id number] 2.840.1.992566.3.579.2. 462 Unknown [id number] .840.1.285773.3.579.2. 462 Unknown [id number] 2.840.1.453941.3.579.2. 462 Unknown [id number] 2.840.1.126444.3.579.2. 462 Unknown [id number] 2.840.1.411463.3.579.2. 462 Unknown [id number] 2.840.1.859798.3.579.2. 462 Unknown [id number] 2.840.1.113549.3.579.2. 462 Unknown [id number] 2.840.1.100538.3.579.2. 462 Unknown [id number] 2.840.1.637859.3.579.2. 462 Unknown [id number] 2.840.1.334930.3.579.2. 462 Unknown [id number] 2.840.1.351748.3.579.2. 462 Unknown [id number] 2.840.1.036372.3.579.2. 462 Unknown [id number] 2.840.1.428812.3.579.2. 462 Unknown [id number] 2.840.1.251231.3.579.2. 462 Unknown [id number] 2.840.1.697526.3.579.2. 462 Unknown [id number] 2.840.1.788041.3.579.2. 462 Unknown [id number] 2.840.1.507537.3.579.2. 462 Unknown [id number] 2.840.1.086378.3.579.2. 462 Unknown [id number] 2.840.1.419984.3.579.2. 462 Unknown [id number] 2.840.1.046217.3.579.2. 462 Unknown [id number] .840.1.687327.3.579.2. 462 Unknown [id number] 2.840.1.852532.3.579.2. 462 Unknown [id number] 2.840.1.755466.3.579.2. 462 Unknown [id number] 2.840.1.280024.3.579.2. 462 Unknown [id number] 2.840.1.709762.3.579.2. 462 Unknown [id number] 2.16.840.1.078211.3.579.2. 462 Social History Date Type Detail Facility [facility] Work Phone: Start: 08-20-2021 End: 05-04-2023 Tobacco smoking status NHIS Unknown if ever smoked [facility] Start: 07-01-2020 None [facility] Start: 09-08-2020 With Family [facility] Start: 05-25-2020 Cigarettes [facility] Start: 1985 Sex Assigned At Female W [facility] Start: 11-16-2022 End: 02-11-2024 Tobacco smoking status Smokes tobacco daily (finding) [facility] Sex Assigned At Sex [facility] Start: 09-02-2004 History of tobacco use Cigarette Smo ker [facility] Start: 11-16-2022 End: 06-21-2024 Cigarettes smoked current (pack per day) - Reported [address] [facility] Start: 11-16-2022 End: 02-11-2024 Tobacco use and exposure Smokeless tobacco non-user [facility] Start: 06-25-2020 End: 11-16-2022 Alcohol intake Current non-drinker of alcohol (finding) [facility] Start: 01-27-2020 End: 06-21-2024 Social connection and isolation panel [facility] Do you belong to any clubs or organizations such as alevism groups, unions, fraternal or athletic groups, or school groups? No [facility] Are you now , , , , never or living with a partner? [facility] How often to you hav e a drink containing alcohol? Monthly or less [facility] Work Phone: How many standard drinks containing alcohol do you have on a typical day? [address] [facility] Work Phone: How often do you hav e 6 or more drinks on 1 occasion? Less than monthly [facility] Work Phone: How hard is it for y ou to pay for the very basics like food, housing, medical care, and heating Hard [facility] Work Phone: Adult Depression Screening Assessment [address] [facility] Do you feel stress - tense, restless, nervous, or anxious, or unable to sleep at night because your mind is troubled all the time - these days [OSQ] Only a little [facility] (I/We) worried wheth er (my/our) food would run out before (I/we) got money to buy more. Never true [facility] Work Phone: Start: 01-27-[address] [facility] Start: 12-09-2016 End: 11-16-2022 Tobacco Comment Childhood home parents smoked outside. [facility] Start: 1985 Sex Assigned At Not on file C [facility] Start: 05-26-2020 End: 12-31-2020 Exposure to SARS-CoV-2 (event) Not sure [facility] Start: 06-21-2024 Alcoholic beverage intake Current drinker of alcohol (finding) [facility] Start: 03-02-2021 Alcohol Comment occasionally [facility] Start: 02-24-2022 Gender identity Identifies as female gender (finding) [facility] Start: 02-24-2022 Sexual orientation Heterosexual (fin favio) [facility] NEGATED: Highlighted row [facility] Medical Equipment Procedure Code Equipment Code Equipment Origin al Text Equipment Identifier Dates Vaginal hysterectomy SEALANT,JASWINDER SEAL HEMOSTATIC 5ML FDA Start: 03-22-2022 Vaginal hysterectomy [id number] FDA Start: 03-22-2022 Vaginal hysterectomy SEALANT,JASWINDER SEAL HEMOSTATIC 5ML FDA Start: 03-22-2022 Vaginal hysterectomy SEALANT,JASWINDER SEAL HEMOSTATIC 5ML FDA Start: 03-22-2022 Vaginal hysterectomy SEALANT,JASWINDER SEAL HEMOSTATIC 5ML FDA Start: 03-22-2022 Vaginal hysterectomy SEALANT,JASWINDER SEAL HEMOSTATIC 5ML FDA Start: 03-22-2022 Vaginal hysterectomy SEALANT,JASWINDER SEAL HEMOSTATIC 5ML FDA Start: 03-22-2022 Vaginal hysterectomy FDA Star t: 03-22-2022 Vaginal hysterectomy FDA Star t: 03-22-2022 Vaginal hysterectomy FDA Star t: 03-22-2022 Vaginal hysterectomy FDA Star t: 03-22-2022 Vaginal hysterectomy FDA Star t: 03-22-2022 Vaginal hysterectomy FDA Star t: 03-22-2022 Vaginal hysterectomy FDA Star t: 03-22-2022 Vaginal hysterectomy FDA Star t: 03-22-2022 Vaginal hysterectomy FDA Star t: 03-22-2022 Vaginal hysterectomy FDA Star t: 03-22-2022 Vaginal hysterectomy SEALANT,JASWINDER SEAL HEMOSTATIC 5ML FDA Start: 03-22-2022 Vaginal hysterectomy SEALANT,JASWINDER SEAL HEMOSTATIC 5ML FDA Start: 03-22-2022 Vaginal hysterectomy SEALANT,JASWINDER SEAL HEMOSTATIC 5ML FDA Start: 03-22-2022 Vaginal hysterectomy SEALANT,JASWINDER SEAL HEMOSTATIC 5ML FDA Start: 03-22-2022 Vaginal hysterectomy FDA Star t: 03-22-2022 Vaginal hysterectomy FDA Star t: 03-22-2022 Vaginal hysterectomy FDA Star t: 03-22-2022 Vaginal hysterectomy FDA Star t: 03-22-2022 Vaginal hysterectomy FDA Star t: 03-22-2022 Vaginal hysterectomy FDA Star t: 03-22-2022 Vaginal hysterectomy FDA Star t: 03-22-2022 Vaginal hysterectomy FDA Star t: 03-22-2022 Vaginal hysterectomy FDA Star t: 03-22-2022 Vaginal hysterectomy FDA Star t: 03-22-2022 Vaginal hysterectomy FDA Star t: 03-22-2022 Vaginal hysterectomy FDA Star t: 03-22-2022 Vaginal hysterectomy FDA Star t: 03-22-2022 Vaginal hysterectomy FDA Star t: 03-22-2022 Vaginal hysterectomy FDA Star t: 03-22-2022 Vaginal hysterectomy FDA Star t: 03-22-2022 Vaginal hysterectomy FDA Star t: 03-22-2022 Vaginal hysterectomy FDA Star t: 03-22-2022 Vaginal hysterectomy FDA Star t: 03-22-2022 Vaginal hysterectomy FDA Star t: 03-22-2022 Thyroidectomy SUTURE,LIGA CLIP SM LT-100 FDA Start: 02-07-2020 Thyroidectomy SUTURE,LIGA CLIP SM LT-100 FDA Start: 02-07-2020 Thyroidectomy SUTURE,LIGA CLIP SM LT-100 FDA Start: 02-07-2020 Thyroidectomy SUTURE,LIGA CLIP SM LT-100 FDA Start: 02-07-2020 Thyroidectomy SUTURE,LIGA CLIP SM LT-100 FDA Start: 02-07-2020 Thyroidectomy SUTURE,LIGA CLIP SM LT-100 FDA Start: 02-07-2020 Thyroidectomy SUTURE,LIGA CLIP SM LT-100 FDA Start: 02-07-2020 Thyroidectomy SUTURE,LIGA CLIP SM LT-100 FDA Start: 02-07-2020 Thyroidectomy SUTURE,LIGA CLIP SM LT-100 FDA Start: 02-07-2020 Thyroidectomy SUTURE,LIGA CLIP SM LT-100 FDA Start: 02-07-2020 Thyroidectomy SUTURE,LIGA CLIP SM LT-100 FDA Start: 02-07-2020 Thyroidectomy SUTURE,LIGA CLIP SM LT-100 FDA Start: 02-07-2020 Thyroidectomy SUTURE,LIGA CLIP SM LT-100 FDA Start: 02-07-2020 Thyroidectomy SUTURE,LIGA CLIP SM LT-100 FDA Start: 02-07-2020 Thyroidectomy SUTURE,LIGA CLIP SM LT-100 FDA Start: 02-07-2020 Thyroidectomy SUTURE,LIGA CLIP SM LT-100 FDA Start: 02-07-2020 Thyroidectomy SUTURE,LIGA CLIP SM LT-100 FDA Start: 02-07-2020 Thyroidectomy SUTURE,LIGA CLIP SM LT-100 FDA Start: 02-07-2020 Thyroidectomy SUTURE,LIGA CLIP SM LT-100 FDA Start: 02-07-2020 Thyroidectomy SUTURE,LIGA CLIP SM LT-100 FDA Start: 02-07-2020 Thyroidectomy SUTURE,LIGA CLIP SM LT-100 FDA Start: 02-07-2020 Thyroidectomy SUTURE,LIGA CLIP SM LT-100 FDA Start: 02-07-2020 Thyroidectomy SUTURE,LIGA CLIP SM LT-100 FDA Start: 02-07-2020 Thyroidectomy SUTURE,LIGA CLIP SM LT-100 FDA Start: 02-07-2020 Thyroidectomy SUTURE,LIGA CLIP SM LT-100 FDA Start: 02-07-2020 Thyroidectomy SUTURE,LIGA CLIP SM LT-100 FDA Start: 02-07-2020 Thyroidectomy SUTURE,LIGA CLIP SM LT-100 FDA Start: 02-07-2020 Thyroidectomy SUTURE,LIGA CLIP SM LT-100 FDA Start: 02-07-2020 Thyroidectomy SUTURE,LIGA CLIP SM LT-100 FDA Start: 02-07-2020 Thyroidectomy SUTURE,LIGA CLIP SM LT-100 FDA Start: 02-07-2020 Thyroidectomy SUTURE,LIGA CLIP SM LT-100 FDA Start: 02-07-2020 Thyroidectomy SUTURE,LIGA CLIP SM LT-100 FDA Start: 02-07-2020 Thyroidectomy SUTURE,LIGA CLIP SM LT-100 FDA Start: 02-07-2020 Thyroidectomy SUTURE,LIGA CLIP SM LT-100 FDA Start: 02-07-2020 Thyroidectomy SUTURE,LIGA CLIP SM LT-100 FDA Start: 02-07-2020 Thyroidectomy SUTURE,LIGA CLIP SM LT-100 FDA Start: 02-07-2020 Thyroidectomy SUTURE,LIGA CLIP SM LT-100 FDA Start: 02-07-2020 Thyroidectomy SUTURE,LIGA CLIP SM LT-100 FDA Start: 02-07-2020 Thyroidectomy SUTURE,LIGA CLIP SM LT-100 FDA Start: 02-07-2020 Thyroidectomy SUTURE,LIGA CLIP SM LT-100 FDA Start: 02-07-2020 Thyroidectomy FDA Start: 02-07-2020 Thyroidectomy FDA Start: 02-07-2020 Thyroidectomy FDA Start: 02-07-2020 Thyroidectomy FDA Start: 02-07-2020 Thyroidectomy FDA Start: 02-07-2020 Thyroidectomy FDA Start: 02-07-2020 Thyroidectomy FDA Start: 02-07-2020 Thyroidectomy FDA Start: 02-07-2020 Thyroidectomy FDA Start: 02-07-2020 Thyroidectomy FDA Start: 02-07-2020 Thyroidectomy FDA Start: 02-07-2020 Thyroidectomy FDA Start: 02-07-2020 Thyroidectomy FDA Start: 02-07-2020 Thyroidectomy FDA Start: 02-07-2020 Thyroidectomy FDA Start: 02-07-2020 Thyroidectomy FDA Start: 02-07-2020 Thyroidectomy FDA Start: 02-07-2020 Thyroidectomy FDA Start: 02-07-2020 Thyroidectomy FDA Start: 02-07-2020 Thyroidectomy FDA Start: 02-07-2020 Thyroidectomy SUTURE,LIGA CLIP SM LT-100 FDA Start: 02-07-2020 Thyroidectomy SUTURE,LIGA CLIP SM LT-100 FDA Start: 02-07-2020 Thyroidectomy SUTURE,LIGA CLIP SM LT-100 FDA Start: 02-07-2020 Thyroidectomy SUTURE,LIGA CLIP SM LT-100 FDA Start: 02-07-2020 Thyroidectomy SUTURE,LIGA CLIP SM LT-100 FDA Start: 02-07-2020 Thyroidectomy SUTURE,LIGA CLIP SM LT-100 FDA Start: 02-07-2020 Thyroidectomy SUTURE,LIGA CLIP SM LT-100 FDA Start: 02-07-2020 Thyroidectomy SUTURE,LIGA CLIP SM LT-100 FDA Start: 02-07-2020 Thyroidectomy FDA Start: 02-07-2020 Thyroidectomy FDA Start: 02-07-2020 Thyroidectomy FDA Start: 02-07-2020 Thyroidectomy FDA Start: 02-07-2020 Thyroidectomy FDA Start: 02-07-2020 Thyroidectomy FDA Start: 02-07-2020 Thyroidectomy FDA Start: 02-07-2020 Thyroidectomy FDA Start: 02-07-2020 Thyroidectomy FDA Start: 02-07-2020 Thyroidectomy FDA Start: 02-07-2020 Thyroidectomy FDA Start: 02-07-2020 Thyroidectomy FDA Start: 02-07-2020 Thyroidectomy FDA Start: 02-07-2020 Thyroidectomy FDA Start: 02-07-2020 Thyroidectomy FDA Start: 02-07-2020 Thyroidectomy FDA Start: 02-07-2020 Thyroidectomy FDA Start: 02-07-2020 Thyroidectomy FDA Start: 02-07-2020 Thyroidectomy FDA Start: 02-07-2020 Thyroidectomy FDA Start: 02-07-2020 Thyroidectomy FDA Start: 02-07-2020 Thyroidectomy FDA Start: 02-07-2020 Thyroidectomy FDA Start: 02-07-2020 Thyroidectomy FDA Start: 02-07-2020 Thyroidectomy FDA Start: 02-07-2020 Thyroidectomy FDA Start: 02-07-2020 Thyroidectomy FDA Start: 02-07-2020 Thyroidectomy FDA Start: 02-07-2020 Thyroidectomy FDA Start: 02-07-2020 Thyroidectomy FDA Start: 02-07-2020 Thyroidectomy FDA Start: 02-07-2020 Thyroidectomy FDA Start: 02-07-2020 Thyroidectomy FDA Start: 02-07-2020 Thyroidectomy FDA Start: 02-07-2020 Thyroidectomy FDA Start: 02-07-2020 Thyroidectomy FDA Start: 02-07-2020 Thyroidectomy FDA Start: 02-07-2020 Thyroidectomy FDA Start: 02-07-2020 Thyroidectomy FDA Start: 02-07-2020 Thyroidectomy FDA Start: 02-07-2020 Laparoscopy, diagnostic ([id number]) ([id number] FDA Start: 04-15-2022 Acetone (Urine) Test (Ketone Urine Test) strip Start: 07-20-2017 End: 07-31-2017 Blood Sugar Diagnostic (Advanced Gluc Meter Test Strip) strip Start: 07-31-2017 End: 08-08-2017 Acetone (Urine) Test (Ketone Urine Test) strip Start: 07-20-2017 End: 07-31-2017 Blood Sugar Diagnostic (Advanced Gluc Meter Test Strip) strip Start: 07-31-2017 End: 08-08-2017 Acetone (Urine) Test (Ketone Urine Test) strip Start: 07-20-2017 End: 07-31-2017 Blood Sugar Diagnostic (Advanced Gluc Meter Test Strip) strip Start: 07-31-2017 End: 08-08-2017 Acetone (Urine) Test (Ketone Urine Test) strip Start: 07-20-2017 End: 07-31-2017 Blood Sugar Diagnostic (Advanced Gluc Meter Test Strip) strip Start: 07-31-2017 End: 08-08-2017 Acetone (Urine) Test (Ketone Urine Test) strip Start: 07-20-2017 End: 07-31-2017 Blood Sugar Diagnostic (Advanced Gluc Meter Test Strip) strip Start: 07-31-2017 End: 08-08-2017 Acetone (Urine) Test (Ketone Urine Test) strip Start: 07-20-2017 End: 07-31-2017 Blood Sugar Diagnostic (Advanced Gluc Meter Test Strip) strip Start: 07-31-2017 End: 08-08-2017 Acetone (Urine) Test (Ketone Urine Test) strip Start: 07-20-2017 End: 07-31-2017 Blood Sugar Diagnostic (Advanced Gluc Meter Test Strip) strip Start: 07-31-2017 End: 08-08-2017 Acetone (Urine) Test (Ketone Urine Test) strip Start: 07-20-2017 End: 07-31-2017 Blood Sugar Diagnostic (Advanced Gluc Meter Test Strip) strip Start: 07-31-2017 End: 08-08-2017 Acetone (Urine) Test (Ketone Urine Test) strip Start: 07-20-2017 End: 07-31-2017 Blood Sugar Diagnostic (Advanced Gluc Meter Test Strip) strip Start: 07-31-2017 End: 08-08-2017 Acetone (Urine) Test (Ketone Urine Test) strip Start: 07-20-2017 End: 07-31-2017 Blood Sugar Diagnostic (Advanced Gluc Meter Test Strip) strip Start: 07-31-2017 End: 08-08-2017 Acetone (Urine) Test (Ketone Urine Test) strip Start: 07-20-2017 End: 07-31-2017 Blood Sugar Diagnostic (Advanced Gluc Meter Test Strip) strip Start: 07-31-2017 End: 08-08-2017 Acetone (Urine) Test (Ketone Urine Test) strip Start: 07-20-2017 End: 07-31-2017 Blood Sugar Diagnostic (Advanced Gluc Meter Test Strip) strip Start: 07-31-2017 End: 08-08-2017 Acetone (Urine) Test (Ketone Urine Test) strip Start: 07-20-2017 End: 07-31-2017 Blood Sugar Diagnostic (Advanced Gluc Meter Test Strip) strip Start: 07-31-2017 End: 08-08-2017 Acetone (Urine) Test (Ketone Urine Test) strip Start: 07-20-2017 End: 07-31-2017 Blood Sugar Diagnostic (Advanced Gluc Meter Test Strip) strip Start: 07-31-2017 End: 08-08-2017 Acetone (Urine) Test (Ketone Urine Test) strip Start: 07-20-2017 End: 07-31-2017 Blood Sugar Diagnostic (Advanced Gluc Meter Test Strip) strip Start: 07-31-2017 End: 08-08-2017 Acetone (Urine) Test (Ketone Urine Test) strip Start: 07-20-2017 End: 07-31-2017 Blood Sugar Diagnostic (Advanced Gluc Meter Test Strip) strip Start: 07-31-2017 End: 08-08-2017 Acetone (Urine) Test (Ketone Urine Test) strip Start: 07-20-2017 End: 07-31-2017 Blood Sugar Diagnostic (Advanced Gluc Meter Test Strip) strip Start: 07-31-2017 End: 08-08-2017 Acetone (Urine) Test (Ketone Urine Test) strip Start: 07-20-2017 End: 07-31-2017 Blood Sugar Diagnostic (Advanced Gluc Meter Test Strip) strip Start: 07-31-2017 End: 08-08-2017 Acetone (Urine) Test (Ketone Urine Test) strip Start: 07-20-2017 End: 07-31-2017 Blood Sugar Diagnostic (Advanced Gluc Meter Test Strip) strip Start: 07-31-2017 End: 08-08-2017 Acetone (Urine) Test (Ketone Urine Test) strip Start: 07-20-2017 End: 07-31-2017 Blood Sugar Diagnostic (Advanced Gluc Meter Test Strip) strip Start: 07-31-2017 End: 08-08-2017 Acetone (Urine) Test (Ketone Urine Test) strip Start: 07-20-2017 End: 07-31-2017 Blood Sugar Diagnostic (Advanced Gluc Meter Test Strip) strip Start: 07-31-2017 End: 08-08-2017 Acetone (Urine) Test (Ketone Urine Test) strip Start: 07-20-2017 End: 07-31-2017 Blood Sugar Diagnostic (Advanced Gluc Meter Test Strip) strip Start: 07-31-2017 End: 08-08-2017 Acetone (Urine) Test (Ketone Urine Test) strip Start: 07-20-2017 End: 07-31-2017 Blood Sugar Diagnostic (Advanced Gluc Meter Test Strip) strip Start: 07-31-2017 End: 08-08-2017 Acetone (Urine) Test (Ketone Urine Test) strip Start: 07-20-2017 End: 07-31-2017 Blood Sugar Diagnostic (Advanced Gluc Meter Test Strip) strip Start: 07-31-2017 End: 08-08-2017 Goals Date Patient Goal Desired Activity /State Functional Status Date Assessment Result Facility 08-15-2022 Functional Status Room check performed [facility] 08-15-2022 Functional Status [facility] 04-16-2022 Functional status Ambulates [facility] Work Phone: 03-23-2022 Functional status Up ad dylan [facility] Work Phone: Mental Status Date Assessment Result Facility 09-29-2023 Cognitive function Awake;Alert;A ppropriate;Follow s Commands [facility] Work Phone: 06-29-2023 Cognitive function Awake;Alert;A ppropriate;Follow s Commands [facility] Work Phone: 04-17-2023 Cognitive function Awake [facility] Work Phone: 02-14-2023 Cognitive function Voice/Name [facility] Work Phone: 12-25-2022 Cognitive function Voice/Name [facility] Work Phone: 08-17-2022 Cognitive function Awake;Alert;Appropriat e [facility] Work Phone: 08-15-2022 Mental Status Orientation Oriented x 4 [facility] 08-15-2022 Mental Status [facility] 07-17-2022 Cognitive function Voice/Name [facility] Work Phone: 04-18-2022 Cognitive function Awake;Alert;A ppropriate;Follow s Commands [facility] Work Phone: 04-16-2022 Cognitive function Voice/Name [facility] Work Phone: 03-30-2022 Cognitive function Awake;Alert;A ppropriate;Follow s Commands [facility] Work Phone: 03-23-2022 Cognitive function Voice/Name [facility] Work Phone: 03-23-2022 Cognitive function Appropriate;Ottoniel nannette [facility] Work Phone: 11-27-2021 Cognitive function Appropriate;[facility] nannette [facility] Work Phone: 08-25-2021 Cognitive function Level Of Cons ciousness Awake;Alert;Appropriate;Follow s Commands [facility] Work Phone: Clinical Notes 2018 to 06-21-2024 Tomasz Ace Jr., DP - 06/21/2024 2:47 PM EST Note Date & Type Note Facility 06-21-2024 Note HPI Chief Complaint Patient presents with Foot Pain Bilateral foot pain x 1 yr - pt states that she has been having pain in the front part of the heel into the arch and sometimes get white bumps in that area - pt states that she recently started getting sharp shooting pains - no trauma or injury - pt currently was diagnosed with a DVT in the R leg and is currently on blood thinners Patient is a pleasant 39-year-old female who comes in today with bilateral heel pain right much worse than left. Denies any trauma. 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 Does have an extensive right leg DVT and SVT recent past medical history. Past Medical History: Diagnosis Date Disease of thyroid gland DVT (deep venous thrombosis) (HCC) RLE Almaz thyroiditis, fibrous variant Hypertension Migraine Past Surgical History: Procedure Laterality Date CARPAL TUNNEL RELEASE Right FEMUR SURGERY Right HYSTERECTOMY (CERVIX REMOVED) ORIF RADIUS & ULNA FRACTURES Left THYROIDECTOMY Social History Socioeconomic History Marital status: Tobacco Use Smoking status: Every Day Current packs/day: 1.00 Types: Cigarettes Smokeless tobacco: Never Vaping Use Vaping status: Never Used Substance and Sexual Activity Alcohol use: Yes Comment: occasionally Drug use: Not Currently Social Drivers of Health Financial Resource Strain: High Risk (02/19/2020) Received from [facility] Overall Financial Resource Strain (CARDIA) Difficulty of Paying Living Expenses: Hard Food Insecurity: No Food Insecurity (02/19/2020) Received from [facility] Hunger Vital Sign Worried About Running Out of Food in the Last Year: Never true Ran Out of Food in the Last Year: Never true Transportation Needs: No Transportation Needs (02/19/2020) Received from [facility] PRAPARE - Transportation Lack of Transportation (Medical): No Lack of Transportation (Non-Medical): No Physical Activity: Insufficiently Active (01/27/2020) Received from [facility] Exercise Vital Sign Days of Exercise per Week: 2 days Minutes of Exercise per Session: 20 min Stress: No Stress Concern Present (01/27/2020) Received from [facility] [employer] [place] [facility] [employer] - Occupational Stress Questionnaire Feeling of Stress : Only a little Social Connections: Moderately Isolated (01/27/2020) Received from [facility] Social Connection and Isolation Panel [NHANES] Frequency of Communication with Friends and Family: More than three times a week Frequency of Social Gatherings with Friends and Family: Twice a week Attends Yazidi Services: Never Active Member of Clubs or Organizations: No Attends Club or Organization Meetings: Never Marital Status: Housing Stability: Low Risk (01/27/2020) Received from [facility] Housing Stability Vital Sign Unable to Pay for Housing in the Last Year: No Number of Places Lived in the Last Year: 1 Unstable Housing in the Last Year: No Review of Systems Physical Exam Patient is AOx3. Linear and appropriate humor and thought process. Vascular: DP PT pulses are easily palpable 2-4. Moderate right foot edema with varicose veins to the right improved to the left. Derm: No erythema no open wounds no ulcers no rashes no deep nodules. Neuro: Preserved. Musculoskeletal: Substantial pain to the right foot plantar fascial origin negative macrocrania squeeze test. Ankle subtalar distal is full and pain-free without any clicking or catching. Much less pain to the left foot with compression. Radiographs reviewed with bilateral plantar fasciitis and heel spur syndrome. Impression/Plan Problem List Items Addressed This Visit None Visit Diagnoses Plantar fasciitis - Primary Relevant Orders Ambulatory Ref to Lydia/Blanca (PT/OT/ST) Patient is a pleasant 39-year-old female with subchronic right foot plantar fasciitis and heel spur syndrome right much worse than left. Due to her extensive right sided venous disease and clotting as well as workup for filtration and venous ablation, we will hold off on steroid injections as well as immobilization as both likely worsen her clotting risk. Additionally given the extensive quantities of antiplatelets that she is on will avoid NSAIDs. Instead, start aggressive traditional physical therapy to rehab her bilateral plantar fascial origin. Start icing daily. Follow-up in 2 to 3 months to consider steroid injection and cam boot immobilization. AUTHENTICATED BY TOMASZ ACE JR., ON 06/21/2024 14:55:06 [facility] 06-21-2024 History of Presen t illness Narrative HPI Chief Complaint Patient presents with Foot Pain Bilateral foot pain x 1 yr - pt states that she has been having pain in the front part of the heel into the arch and sometimes get white bumps in that area - pt states that she recently started getting sharp shooting pains - no trauma or injury - pt currently was diagnosed with a DVT in the R leg and is currently on blood thinners Patient is a pleasant 39-year-old female who comes in today with bilateral heel pain right much worse than left. Denies any trauma. 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 Does have an extensive right leg DVT and SVT recent past medical history. Past Medical History: Diagnosis Date Disease of thyroid gland DVT (deep venous thrombosis) (HCC) RLE Almaz thyroiditis, fibrous variant Hypertension Migraine Past Surgical History: Procedure Laterality Date CARPAL TUNNEL RELEASE Right FEMUR SURGERY Right HYSTERECTOMY (CERVIX REMOVED) ORIF RADIUS & ULNA FRACTURES Left THYROIDECTOMY Social History Socioeconomic History Marital status: Tobacco Use Smoking status: Every Day Current packs/day: 1.00 Types: Cigarettes Smokeless tobacco: Never Vaping Use Vaping status: Never Used Substance and Sexual Activity Alcohol use: Yes Comment: occasionally Drug use: Not Currently Social Drivers of Health Financial Resource Strain: High Risk (02/19/2020) Received from [facility] Overall Financial Resource Strain (CARDIA) Difficulty of Paying Living Expenses: Hard Food Insecurity: No Food Insecurity (02/19/2020) Received from [facility] Hunger Vital Sign Worried About Running Out of Food in the Last Year: Never true Ran Out of Food in the Last Year: Never true Transportation Needs: No Transportation Needs (02/19/2020) Received from [facility] PRAPARE - Transportation Lack of Transportation (Medical): No Lack of Transportation (Non-Medical): No Physical Activity: Insufficiently Active (01/27/2020) Received from [facility] Exercise Vital Sign Days of Exercise per Week: 2 days Minutes of Exercise per Session: 20 min Stress: No Stress Concern Present (01/27/2020) Received from [facility] [employer] [place] [employer] - Occupational Stress Questionnaire Feeling of Stress : Only a little Social Connections: Moderately Isolated (01/27/2020) Received from [facility] Social Connection and Isolation Panel [NHANES] Frequency of Communication with Friends and Family: More than three times a week Frequency of Social Gatherings with Friends and Family: Twice a week Attends Yazidi Services: Never Active Member of Clubs or Organizations: No Attends Club or Organization Meetings: Never Marital Status: Housing Stability: Low Risk (01/27/2020) Received from [facility] Housing Stability Vital Sign Unable to Pay for Housing in the Last Year: No Number of Places Lived in the Last Year: 1 Unstable Housing in the Last Year: No Review of Systems Physical Exam Patient is AOx3. Linear and appropriate humor and thought process. Vascular: DP PT pulses are easily palpable 2-4. Moderate right foot edema with varicose veins to the right improved to the left. Derm: No erythema no open wounds no ulcers no rashes no deep nodules. Neuro: Preserved. Musculoskeletal: Substantial pain to the right foot plantar fascial origin negative macrocrania squeeze test. Ankle subtalar distal is full and pain-free without any clicking or catching. Much less pain to the left foot with compression. Radiographs reviewed with bilateral plantar fasciitis and heel spur syndrome. Impression/Plan Problem List Items Addressed This Visit None Visit Diagnoses Plantar fasciitis - Primary Relevant Orders Ambulatory Ref to Lydia/Blanca (PT/OT/ST) Patient is a pleasant 39-year-old female with subchronic right foot plantar fasciitis and heel spur syndrome right much worse than left. Due to her extensive right sided venous disease and clotting as well as workup for filtration and venous ablation, we will hold off on steroid injections as well as immobilization as both likely worsen her clotting risk. Additionally given the extensive quantities of antiplatelets that she is on will avoid NSAIDs. Instead, start aggressive traditional physical therapy to rehab her bilateral plantar fascial origin. Start icing daily. Follow-up in 2 to 3 months to consider steroid injection and cam boot immobilization. documented in this encounter [facility] 09-30-2023 Hospital Discharg e instructions Additional Instructions 1. Apply ice 6-8 times a day 2. Avoid neck movement it causes you pain. 3. If you develop weakness in your hands or difficulty using your upper extremity return to the emergency room otherwise follow-up with your doctor Dr. London [facility] Work Phone: 09-29-2023 Discharge summary Note Date/Time September 29, 2023 3:52p [facility] Medical Records Department [address] [place] [address] Emergency Department Summary 09/29/23 MR#: [id number] Acct: [id number] Name: LANA RIVERA Rep #:[id number] : 1985 38 From: Sorin Jacobs MD PCP: Dr. Aleena London MD Status:R EG ER Location: ED HPI History of Present Illness Chief Complaint: Other, Pain/Inj Detail of Chief Complaint: Throat tightness and pain Informant: patient Onset/Context/Timing Onset: Weeks (Weeks. Diagnosed with strep. Followed up with ENT. Did not callon Monday as instructed) Timing: Continuous and Waxes and wanes Quality: Throat pain, anterior neck pain and posterior neck pain Location: Document under quality Current Severity: Mild Maximum Severity: Moderate Worsened by: Neck pain is worse with movement. Relieved by: Nothing Associated Symptoms Associated Symptoms: no paresthesia, anesthesia or motor weakness. No constitutional symptoms. Narrative Narrative: Patient is a 38-year-old female who was seen at urgent care mid August diagnosed with strep pharyngitis and prescribed cefdinir because of allergy to penicillin. She continued to have pain and was seen at urgent care on September 13. Her rapid strep and follow-up culture were both negative. She was prescribed doxycycline and prednisone at that time. She also an appointment with her internal medicinedoctor for breast pain. She followed up with ENT because she had persistent pain. A rapid strep and culture were obtained which were both negative as well. She was instructed to call this past September 24 if she continued to have pain. She did not. She presents now because of posterior neck pain anterior neck pain with fullness swelling sensation. She denies fever, chills night sweats. She denies change in voice. She denies difficulty swallowing liquids or solids. She has not noted a difference between solids or liquids. She does report pain with movement of her neck. She denies fever, chills night sweats. She denies rhinorrhea, congestion or postnasal drainage. She denies ear pain. She denies chest pain or shortness of breath. She does have history of degenerative disc disease. She also complains of pain in the left trapezius area. She denies paresthesia, anesthesia or motor weakness of her left or right upper extremity. She has had no problems with coordination or balance. Prior similar symptoms: Yes Recent Illness/Hospitalization: Yes [facility] Medical History ADHD (attention deficit hyperactivity disorder), combined type Anxiety and depression Arthritis Back pain Breast pain, right Bronchitis Cancer Cardiology follow-up encounter Cervical lymphadenopathy Cervical radiculopathy Chronic back pain Chronic pain Chronic RUQ pain Contact with or exposure to other viral diseases Depression Dermatitis Easy bruising Ectopic cardiac beats Fatty liver Fibromyalgia NICOLÁS (generalized anxiety disorder) Almaz's thyroiditis Heartburn History of acne History of echocardiogram History of gestational diabetes History of pain when walking History of stress test Hypertension Hypocalcemia Injury of head and neck Left shoulder pain Left-sided low back pain with left-sided sciatica Leg cramps Localized swelling, mass and lump, neck Melanoma Migraine without aura and with status migrainosus, not intractable Morbid obesity MARCELINO (nonalcoholic steatohepatitis) Numbness and tingling of both upper extremities Numbness of both lower extremities Palpitations PONV (postoperative nausea and vomiting) Post herpetic neuralgia Restless legs Right femoral fracture RUQ abdominal pain Syncope Thyroid disease Tinnitus Tobacco abuse Vertigo Home Medications hydroxyzine pamoate 50 mg capsule 50 mg PO TID PRN anxiety #20 caps 05/30/22 [Rx Last Taken Unknown] albuterol sulfate 2.5 mg/3 mL (0.083 %) solution for nebulization 2.5 mg (3 mL) inhalation Q6H PRN shortness of breath or wheezing #90 mL 06/27/22 [Rx Last Taken Unknown] compress.stocking,knee,reg,lrg #2 ea 04/19/23 [Rx Last Taken Unknown] ketoprofen 75 mg capsule 75 mg PO Q6H PRN Migraine Symptoms #100 caps 05/17/23 [Rx Last Taken Unknown] amlodipine 5 mg tablet 5 mg PO DAILY bp #90 tabs 07/25/23 [Rx Last Taken Unknown] levothyroxine 137 mcg tablet 137 mcg PO DAILY synthroid #90 tabs 07/25/23 [Rx Last Taken Unknown] ondansetron 4 mg disintegrating tablet 8 mg (2 x 4 mg) PO Q8H PRN PRN Nausea #20tabs 07/26/23 [Rx Last Taken Unknown] prochlorperazine maleate 10 mg tablet (Compazine) 10 mg PO BID PRN Migraine Symptoms #30 tabs 08/09/23 [Rx Last Taken Unknown] ursodiol 300 mg capsule 300 mg PO BID #180 caps 08/22/23 [Rx Last Taken Unknown] fluconazole 150 mg tablet 150 mg PO Q3D 2 doses #2 tabs 09/07/23 [Rx Last Taken Unknown] tirzepatide 2.5 mg/0.5 mL subcutaneous pen injector 2.5 mg (0.5 mL) subcut QWEEK4 weeks #2 mL 09/11/23 [Rx Last Taken Unknown] Allergy/AdvReac Type Severity Reaction Status Date / Time latex Allergy Itching Verified 09/29/23 15:15 naproxen Allergy Unknown Verified 09/29/23 15:15 Penicillins [PCN] Allergy Rash Verified 09/29/23 15:15 escitalopram [From Lexapro] AdvReac Intermediate Lightheaded Verified 09/29/23 15:15 sertraline [From Zoloft] AdvReac Intermediate Dizzy & Verified 09/29/23 15:15 Headache dicyclomine [From Bentyl] AdvReac Unknown Unknown Verified 09/29/23 15:15 hydrocodone [From Vicodin] AdvReac Other Verified 09/29/23 15:15 ketorolac [From Toradol] AdvReac Other Verified 09/29/23 15:15 Family History Grandmother Diabetes Other Family history of skin cancer High cholesterol Hypertension Surgical History History of carpal tunnel surgery of right wrist History of surgery on arm History of surgery on lower extremity History of thyroidectomy History of total vaginal hysterectomy (TVH) (~03/22/22) Status post incision and drainage (~04/15/22) Social History Smoking Status: Current every day smoker tobacco type: cigarettes Tobacco: How many years used: 13 Electronic Cigarette Use: not used second hand exposure: No alcohol intake: current alcohol intake frequency: holidays/special occasions only substance use type: does not use caffeine: Yes what type of physical activity do you participate in: none seatbelt use: always do you feel safe at home: Yes additional social history: [employer] [place] ED Constitutional Constitutional ED: Denies chills, fever(s), subjective, sweats or weight loss Eyes Eyes: Denies blurry vision or change in vision ENT ENT ED: Reports sore throat; Denies ear pain or rhinorrhea Cardiovascular Cardiovascular: Denies chest pain, palpitations or racing heartbeat Respiratory/Chest Respiratory/Chest: Denies cough, dyspnea or dyspnea on exertion Musculoskeletal Musculoskeletal: Reports neck pain and other Details: Patient does have limited range of motion of her neck with flexion as well as rotation to the right and left. ; Denies arthralgias, back pain or myalgias Neurologic Neurologic: Denies paresthesias or weakness Hematologic/Lymphatic Hematologic/Lymphatic: Denies easy bleeding or easy bruising Allergic/Immunologic Allergic/Immunologic ED: Reports mouth swelling and tongue swelling EXAM Physical Exam Const Vital Signs: 09/29/23 15:14 09/29/23 15:36 Temperature 97 F L Temperature Source Temporal Pulse Rate 65 Respiratory Rate 16 Respiratory Effort Normal Non-Labored Respiratory Pattern Normal Blood Pressure 149/90 H Blood Pressure Mean 109 Pulse Ox 100 Oxygen Delivery Method Room Air Positive well nourished and well developed Constitutional Narrative: Patient appears in no distress. Vital signs remarkable for elevated blood pressure. Urgent care visits and outpatient office visits indicates she has high blood pressure. She is on amlodipine. General Appearance ED: well developed; Negative for pallor HEENT Reports moist mucous membranes HEENT Narrative: Ears normal. External auditory canal has mild wax right and left. TMs are normal. Nares patent. Posterior pharynx is unremarkable. Uvula is midline. There is no evidence of angioedema. There is no postnasal drainage seen. Eyes PERRL and EOMs intact bilaterally General Eye ED: Negative for pale conjunctiva or scleral icterus Neck no lymphadenopathy, No supple and no JVD Neck Narrative: There is no meningeal findings. Patient has limited range of motion due to posterior neck pain left greater than right. There is pain to palpation. Thereis no cervical lymphadenopathy. Trachea is midline. There is no inspiratory orexpiratory stridor. Resp normal respiratory effort and clear to auscultation bilaterally Cardio regular rate, regular rhythm, S1 normal heart sound, S2 normal heart sound and no murmurs Extremity normal to inspection Extremity Narrative: Axillary, median, radial and ulnar function intact. Bicep, brachialis and tricep reflex are 1+ and symmetric. Radial pulses symmetric. Neuro oriented x3 and CN's II-XII intact bilaterally Sensorium / Orientation: alert Psych Psych Narrative: Patient is slightly anxious. She seemed nervous about heart questions I asked. Skin no rashes or lesions noted, no wounds and skin turgor normal General Skin Exam: Negative for jaundice or pallor MDM MDM MDM Narrative Medical decision making narrative: Suspect patient's limited range of motion is due to degenerative disc disease and cervical myofascial pain. Patient reports allergy to Toradol. Listed as other. She also was told she should not take anti-inflammatories since she is on an anti-inflammatory. Soft tissue x-ray of the neck was obtained to assess the prevertebral space as well as the epiglottis and lingular tonsils. CBC to assess for atypical lymphocytes which would indicate mononucleosis. Lab Data Attestation: I reviewed the patient's lab results. Lab results narrative: CBC is normal. Differential is normal. Labs: Laboratory Results - last 24 hr 09/29/23 15:50 WBC 5.8 RBC 5.16 Hgb 14.4 Hct 44.4 MCV 86.0 MCH 27.9 MCHC 32.4 RDW Std Deviation 41.2 RDW Coeff of Mikel 13.2 Plt Count 173 MPV 10.6 Immature Gran % (Auto) 0.300 Neut % (Auto) 59.6 Lymph % (Auto) 26.8 [place] % (Auto) 9.4 Eos % (Auto) 3.4 Baso % (Auto) 0.5 Absolute Neuts (auto) 3.5 Absolute Lymphs (auto) 1.56 Nucleated RBC % 0 Radiography Chest X-Ray - ED: 2 View and Read by ED Physician (2 view x-ray of the soft tissue neck at 1607 interpreted by me as negative. Epiglottis is normal. Lingular tonsils are normal. Prevertebral space is normal. Parapharyngeal spaces without swelling either.) Treatment and Re-Evaluation :: Patient was told her x-ray and laboratory tests are negative. Suspect her posterior neck pain is due to degenerative disc disease and cervical myofascial strain. Recommend ice and continue taking her NSAID. With regards to the throat pain cause is unknown. Discharge Plan Triage Chief Complaint: Other, Pain/Inj ED Provider: Sorin Jacobs Dx/Rx/DC Orders Clinical Impression: Pain in throat, Cervical myofascial strain, Degenerative cervical disc Instructions: ED Neck Sprain or Strain, ED Pain, Acute, Uncertain Cause Prescriptions: No Action hydroxyzine pamoate 50 mg capsule 50 mg PO TID PRN (Reason: anxiety) Qty: 20 0RF (DME) compress.stocking,knee,reg,lrg Misc See Rx Instructions .MEDSUPPLY Qty: 2 1RF Rx Instructions: wear daily for venous insufficiency 20-30 mmHg tirzepatide 2.5 mg/0.5 mL pen injector 2.5 mg subcut QWEEK 28 Days Qty: 2 1RF ondansetron [ondansetron] 4 mg tablet,disintegrating 8 mg PO Q8H PRN PRN (Reason: Nausea) Qty: 20 0RF albuterol sulfate 2.5 mg /3 mL (0.083 %) solution for nebulization 2.5 mg inhalation Q6H PRN (Reason: shortness of breath or wheezing) Qty: 90 1RF ketoprofen 75 mg capsule 75 mg PO Q6H PRN (Reason: Migraine Symptoms) Qty: 100 0RF Rx Instructions: 1 cap PO at on set of headache max of 3 in 24 hours, max 20 per month amlodipine 5 mg tablet 5 mg PO DAILY Qty: 90 1RF levothyroxine 137 mcg tablet 137 mcg PO DAILY Qty: 90 1RF prochlorperazine maleate [Compazine] 10 mg tablet 10 mg PO BID PRN (Reason: Migraine Symptoms) Qty: 30 1RF ursodiol 300 mg capsule 300 mg PO BID Qty: 180 1RF fluconazole 150 mg tablet 150 mg PO Q3D Qty: 2 0RF Rx Instructions: may repeat second dose 72 hrs after first dose if symptoms persist Primary Care Provider: Aleena London Referrals: Aleena London MD [Primary Care Provider] - 3-5 Days if not improving Activity Restrictions/Additional Instructions: 1. Apply ice 6-8 times a day 2. Avoid neck movement it causes you pain. 3. If you develop weakness in your hands or difficulty using your upper extremity return to the emergency room otherwise follow-up with your doctor Dr. London Disposition Disposition: Home, Self Care What to do if you have Problems For any increased pain, shortness of breath, bleeding, nausea or vomiting, chestpain, or any unexpected problems, contact your Primary Care Provider. Call [facility] ([phone]) or report to the closest Emergency Room. Call 911 if necessary. 09/29/23 1611 <Electronically signed by Sorin Jacobs MD> Cosigner Signature (if applicable): CC: Dr. Aleena London MD ~ Signed [facility] Work Phone: 1(210) 515-953005-10-2024 Hospital Discharge instructions Additional Instructions 1. Apply ice 6-8 times a day 2. Avoid neck movement it causes you pain. 3. If you develop weakness in your hands or difficulty using your upper extremity return to the emergency room otherwise follow-up with your doctor Dr. Curry [facility] Work Phone: 1(852) 597-185303-27-2024 NoteHNO ID: [id number] Author: JAYLA MEDINA APRN.GRAIN OILSEED OR PASTURE FARM MANAGER Service: ? Author Type: Nurse Practitioner Type: Progress Notes Filed: 08/29/2023 11:24 Note Text: PATIENT DID NOT SHOW UP FOR APPOINTMENT ABSTRACT HPI: Ms. Rivera is a 38 year old female who has a past medical history of ADHD, anxiety/depression, diabetes, hypertension, fibromyalgia, Almaz's thyroiditis now with hypothyroidism, melanoma, migraine without aura, obesity, PCOS, and smoking. Per Dr. Eubanks's note on 11/16/2022: Patient reports that she is s/p LEN [...] years as her is s/p vasectomy. Her Emission Technician is Dr. Garcia and Dr. Moore IMAGING: US PELVIS: 11/08/2022 R ovary reportedly normal and measuring 5.4 x 5.3 x 4.2 cm with complex cyst measuring 4.2 x 3.9 x 3.2 cm No free fluid in pelvis US PELVIS: 10/07/2022 R ovary has normal venous and arterial flow. Ovary measures 5 x 4 x 3.3 cm with a cystic structure measuring 2.4 x 2.6 2.6 cm. No free fluid. US PELVIS: 07/13/2022 R ovary measures 4.6 x 3.4 x 3.2 cm. Multiple follicles noted with a simple cyst measured as 1.7 x 1.9 x 1.9 cm. Normal blood flow. No free fluid. US PELVIS: 06/22/2022 R ovary measures 5.5 x 5.2 x 4.6 cm. There is a complex solid and cystic mass in the right ovary that measures 4.2 x 4.5 x 3.2 cm. No free fluid. HISTORIES: PAST GYNECOLOGIC HISTORY: OB History T3 L2 SAB0 IAB1 Ectopic0 Multiple0 Live Births2 LMP: Patient's last menstrual period was 04/22/2020. Hormonal contraceptives: Yes, 12-13 years ago How long: roughly 5-10 years. HRT use: No. History of abnormal pap: Yes, 2016 - [facility] Last pap: Most recently 2015 in records, Per pt -unsure but knows she is up to date Last HPV: negative Last mammogram: 2020, normal Last colonoscopy: N/[facility]03-27-2024 History of Present illness Narrative* Jayla Medina, LOCOMOTIVE FIRER/FIREMAN.GRAIN OILSEED OR PASTURE FARM MANAGER - 08/16/2023 2:30 PM EDT PATIENT DID NOT SHOW UP FOR APPOINTMENT ABSTRACT HPI: Ms. Rivera is a 38 year old female who has a past medical history of ADHD, anxiety/depression,diabetes, hypertension, fibromyalgia, Almaz's thyroiditis now with hypothyroidism, melanoma, migraine without aura, obesity, PCOS, and smoking. Per Dr. Eubanks's note on 11/16/2022: Patient reports that she is s/p LEN [...] due to it being adhered to the bowel.Patient states she was also told she had bowel adhesion to the pelvic wall. States that her surgeonat that time would not feel comfortable performing [...] (x16 years) and she declines Orlissa as shedoesn't want the bone loss side effect. She is a with hx of two normal spontaneous vaginal deliveries. She has not used contraception in 12 years as her is s/p vasectomy. Her Emission Technician is Dr. Garcia and Dr. Moore IMAGING: US PELVIS: 11/08/2022 R ovary reportedly normal and measuring 5.4 x 5.3 x 4.2 cm with complex cyst measuring 4.2 x 3.9 x 3.2 cm No free fluid in pelvis US PELVIS: 10/07/2022 R ovary has normal venous and arterial flow. Ovary measures 5 x 4 x 3.3 cm with a cystic structure measuring 2.4 x 2.6 2.6 cm. No free fluid. US PELVIS: 07/13/2022 R ovary measures 4.6 x 3.4 x 3.2 cm. Multiple follicles noted with a simple cyst measured as 1.7 x 1.9 x 1.9 cm. Normal blood flow. No free fluid. US PELVIS: 06/22/2022 R ovary measures 5.5 x 5.2 x 4.6 cm. There is a complex solid and cystic mass in the right ovary that measures 4.2 x 4.5 x 3.2 cm. No free fluid. HISTORIES: PAST GYNECOLOGIC HISTORY: OB History T3 L2 SAB0 IAB1 Ectopic0 Multiple0 Live Births2 LMP: Patient's last menstrual period was 04/22/2020. Hormonal contraceptives: Yes, 12-13 years ago How long: roughly 5-10 years. HRT use: No. History of abnormal pap: Yes, 2016 - [facility] Last pap: Most recently 2016 in records, Per pt -unsure but knows she is up to date Last HPV: negative Last mammogram: 2020, normal Last colonoscopy: N/A [facility] Discharge summary Author Ashutosh Barajas [facility] July 18, 2023 11:41pm Note Date/Time July 18, 2023 11:36pm [facility] Medical Records Department [address] [place] [address] Emergency Department Summary 07/18/23 MR#: [id number] Acct: [id number] Name: LANA RIVERA Rep #:[id number] : 1985 38 From: Ashutosh Barajas MD PCP: Dr. Aleena London MD Status:R EG ER Location: ED HPI History of Present Illness Chief Complaint: Lower Extremity Injury Informant: patient Onset/Context/Timing Onset: Days (3) Context: Gradual Onset Timing: Continuous Quality of Pain: Aching Current Severity: Moderate Maximum Severity: Moderate Associated Symptoms Associated Symptoms: Negative for Parasthesia or Weakness Narrative Narrative: Patient presenting with gradual onset of pain in both of her calves but she states it really is the right one that hurts the most. The left one is just mild. She states the whole calf is sore but there is 1 particular spot that it seems to be focused on. She agrees it does not look any different than usual. She has a history of varicose veins. She has no history of DVT but she is concerned about 1. She agrees that she has had this before. She states the pain is worse this time but otherwise no different. She denies any chest pain or shortness of breath or syncope. [facility] Medical History Abdominal pain ADHD (attention deficit hyperactivity disorder), combined type Anxiety and depression Arthritis Back pain Bronchitis Cancer Cardiology follow-up encounter Cervical lymphadenopathy Cervical radiculopathy Chronic back pain Chronic pain Chronic RUQ pain Contact with or exposure to other viral diseases Depression Dermatitis Easy bruising Ectopic cardiac beats Fatty liver Fibromyalgia NICOLÁS (generalized anxiety disorder) Almaz's thyroiditis Heartburn History of acne History of echocardiogram History of gestational diabetes History of pain when walking History of stress test History of ulceration Hypertension Hypocalcemia Injury of head and neck Left shoulder pain Left-sided low back pain with left-sided sciatica Leg cramps Localized swelling, mass and lump, neck Melanoma Migraine without aura and with status migrainosus, not intractable Morbid obesity MARCELINO (nonalcoholic steatohepatitis) Numbness and tingling of both upper extremities Numbness of both lower extremities Palpitations PONV (postoperative nausea and vomiting) Post herpetic neuralgia Restless legs Right femoral fracture RUQ abdominal pain Syncope Thyroid disease Tinnitus Tobacco abuse Vertigo Home Medications hydroxyzine pamoate 50 mg capsule 50 mg PO TID PRN anxiety #20 caps 05/30/22 [Rx Last Taken Unknown] meclizine 25 mg tablet 25 mg PO BID PRN dizziness #30 tabs 05/30/22 [Rx Last Taken Unknown] albuterol sulfate 2.5 mg/3 mL (0.083 %) solution for nebulization 2.5 mg (3 mL) inhalation Q6H PRN shortness of breath or wheezing #90 mL 06/27/22 [Rx Last Taken Unknown] amlodipine 5 mg tablet 5 mg PO DAILY bp #90 tabs 12/15/22 [Rx Last Taken 02/14/23] levothyroxine 137 mcg tablet 137 mcg PO DAILY synthroid #90 tabs 02/13/23 [Rx Last Taken 02/14/23] ursodiol 300 mg capsule 300 mg PO BID #180 caps 02/22/23 [Rx Last Taken Unknown] compress.stocking,knee,reg,lrg #2 ea 04/19/23 [Rx Last Taken Unknown] ketoprofen 75 mg capsule 75 mg PO Q6H PRN Migraine Symptoms #100 caps 05/17/23 [Rx Last Taken Unknown] prochlorperazine maleate 10 mg tablet (Compazine) 10 mg PO BID PRN Migraine Symptoms #30 tabs 05/23/23 [Rx Last Taken Unknown] clindamycin HCl 300 mg capsule 300 mg PO TID 7 days #21 caps 07/13/23 [Rx Last Taken Unknown] triamcinolone acetonide 0.025 % topical ointment 1 applic topical BID PRN itching #15 grams 07/18/23 [Rx Last Taken Unknown] Allergy/AdvReac Type Severity Reaction Status Date / Time latex Allergy Itching Verified 07/18/23 20:11 naproxen Allergy Unknown Verified 07/18/23 20:11 Penicillins [PCN] Allergy Rash Verified 07/18/23 20:11 escitalopram [From Lexapro] AdvReac Intermediate Lightheaded Verified 07/18/23 20:11 sertraline [From Zoloft] AdvReac Intermediate Dizzy & Verified 07/18/23 20:11 Headache dicyclomine [From Bentyl] AdvReac Unknown Unknown Verified 07/18/23 20:11 hydrocodone [From Vicodin] AdvReac Other Verified 07/18/23 20:11 ketorolac [From Toradol] AdvReac Other Verified 07/18/23 20:11 Family History Grandmother Diabetes Other Family history of skin cancer High cholesterol Hypertension Surgical History History of carpal tunnel surgery of right wrist History of surgery on arm History of surgery on lower extremity History of thyroidectomy History of total vaginal hysterectomy (TVH) (~03/22/22) Status post incision and drainage (~04/15/22) Social History Smoking Status: Current every day smoker tobacco type: cigarettes Tobacco: How many years used: 13 Electronic Cigarette Use: not used second hand exposure: No alcohol intake: current alcohol intake frequency: holidays/special occasions only substance use type: does not use caffeine: Yes what type of physical activity do you participate in: none seatbelt use: always do you feel safe at home: Yes additional social history: [employer] ED Constitutional Constitutional ED: Denies chills or fever(s) Musculoskeletal Musculoskeletal: Reports extremity pain; Denies neck pain Integumentary Denies Abrasions, rash or wounds Neurologic Neurologic: Denies paresthesias or weakness EXAM Physical Exam Const Vital Signs: 07/18/23 20:12 07/18/23 20:10 Temperature 98.1 F 98.1 F Temperature Source Temporal Oral Pulse Rate 87 78 Respiratory Rate 16 16 Blood Pressure 132/89 H 114/76 Blood Pressure Mean 103 88 Pulse Ox 99 97 Oxygen Delivery Method Room Air Positive well nourished and well developed General Appearance ED: well developed and NAD Neck full ROM and supple Back/Spine normal ROM and normal to inspection Extremity normal to inspection and full ROM Extremity Narrative: Multiple areas of varicose veins in both lower legs. The right calf is tender in 1 particular area but there is no palpable cord or erythema. Full range of motion of all joints all compartments are soft and nondistended. Neuro oriented x3, no focal motor deficits and no sensory deficits noted Sensorium / Orientation: alert Psych mental status grossly normal and thought process normal Mood & Affect: anxious Skin no wounds Skin Narrative: No rash or erythema to the lower extremities. Rashes: no rashes MDM MDM MDM Narrative Medical decision making narrative: In screening for medical emergencies a CPK and a D-dimer were both obtained and both normal. Patient meets criteria for a D-dimer given her low Wells criteria score. She is stable for discharge home, I would recommend basically treating her empirically for superficial venous thrombosis. This entails warm/hot compresses which she really has not tried yet, and we talked about the details, in addition to aspirin. Lab Data Attestation: I reviewed the patient's lab results. Labs: Laboratory Results - last 24 hr 07/18/23 22:20 D-Dimer Quant (PE/DVT) < 0.27 L Total Creatine Kinase 178 Discharge Plan Triage Chief Complaint: Lower Extremity Injury ED Provider: Ashutosh Barajas Dx/Rx/DC Orders Clinical Impression: Bilateral calf pain Instructions: ED Thrombophlebitis, Superficial Prescriptions: No Action hydroxyzine pamoate 50 mg capsule 50 mg PO TID PRN (Reason: anxiety) Qty: 20 0RF meclizine 25 mg tablet 25 mg PO BID PRN (Reason: dizziness) Qty: 30 1RF (DME) compress.stocking,knee,reg,lrg Misc See Rx Instructions .MEDSUPPLY Qty: 2 1RF Rx Instructions: wear daily for venous insufficiency 20-30 mmHg clindamycin HCl 300 mg capsule 300 mg PO TID 7 Days Qty: 21 0RF triamcinolone acetonide 0.025 % ointment 1 applic topical BID PRN (Reason: itching) Qty: 15 1RF albuterol sulfate 2.5 mg /3 mL (0.083 %) solution for nebulization 2.5 mg inhalation Q6H PRN (Reason: shortness of breath or wheezing) Qty: 90 1RF amlodipine 5 mg tablet 5 mg PO DAILY Qty: 90 1RF levothyroxine 137 mcg tablet 137 mcg PO DAILY Qty: 90 1RF ursodiol 300 mg capsule 300 mg PO BID Qty: 180 1RF ketoprofen 75 mg capsule 75 mg PO Q6H PRN (Reason: Migraine Symptoms) Qty: 100 0RF Rx Instructions: 1 cap PO at on set of headache max of 3 in 24 hours, max 20 per month prochlorperazine maleate [Compazine] 10 mg tablet 10 mg PO BID PRN (Reason: Migraine Symptoms) Qty: 30 1RF Primary Care Provider: Aleena London Referrals: Aleena London MD [Primary Care Provider] - 1 Week if not improving Activity Restrictions/Additional Instructions: Take baby aspirin every day along with warm/hot compresses to affected area 2-3 times daily until pain resolved. Disposition Disposition: Home, Self Care What to do if you have Problems For any increased pain, shortness of breath, bleeding, nausea or vomiting, chestpain, or any unexpected problems, contact your Primary Care Provider. Call [facility] ([phone]) or report to the closest Emergency Room. Call 911 if necessary. 07/18/232339 <Electronically signed by Ashutosh Barajas MD> Cosigner Signature (if applicable): CC: Dr. Aleena London MD ~ Signed ADDENDUM by Dr. Ashutosh Barajas MD on 07/18/23 at 2341 I reviewed prior ED visit at the end of 2022 couple months ago, where she appeared to present with the same thing and had a venous evaluation that was negative for any DVT. 07/18/23 234<Electronically signed by Ashutosh Barajas MD> Cosigner Signature (if applicable): cc: Dr. Aleena London MD ~* Signed [facility] Work Phone: 1(287) 104-229411-22-20[address] at [facility]. Explained that we do not except [employer]. State that she will call Pt to let her know. Ok to close [facility]11-22-2023 Telephone encounter Note* Telephone Encounter - Dimple Falcon 04/12/2023 12:05 PM EST Spoke with Sandra at [facility]. Explained that we do not except [employer]. State that she will call Pt to let her know. Ok to close [id number] Miscellaneous Notes* Telephone Encounter - Dimple Lewis - 04/12/2023 12:05 PM EST Spoke with Sandra at [facility]. Explained that we do not except [employer]. State that she will call Pt to let her know. Ok to close referral documented in [facility]SM[facility] [id number] Procedure [facility]09-14-2023 Miscellaneous Notes* Telephone Encounter - Riya Aguilar MA - 02/02/2023 2:59 PM EDT Spoke with patient and she indicated that she another PCP and now and was not sure why they sent this message to us. She is just trying figure out who scheduled the appointment. I did remove PCP. Riya Aguilar MA * Telephone Encounter - Radha Stark - 02/02/2023 2:01 PM EDT Lana Rivera is calling Nima Kaur MD today with concern regarding appointment on 02/06 withGyn. Patient asking who scheduled appointment because she did not. Please return call to patient. Patient has been identified by name and birthdate. Duration of symptoms: N/A Person calling: self Call patient at: on cell [phone] (home) [phone] (cell) Was an appointment scheduled: No Closing statement: Results or non-symptom based questions: Thank you for [facility], your call will be returned within the next business day. Radha Stark [facility]23 Discharge summary Author Stephany Robbins [facility] December 25, 2022 2:24pm Note Date/Time December 25, 2022 12: 56pm [facility] Medical Records Department [address] [place] [address] Emergency Department Summary 12/25/22 MR#: [id number] Acct: [id number] Name: LANA RIVERA Rep #:[id number] : 1985 37 From: Ry Enamorado MD PCP: Dr. Aleena London MD Status:R EG ER Location: ED HPI <ADRI Burgess - Last Filed: 12/25/22 14:24> History of Present Illness Chief Complaint: Chest Other Narrative Narrative: 37-year-old female presents with left sided neck and trapezius pain into the shoulder. She has had this for over 2 years but it seemed to worsen over the last 6 months especially over the last couple days. There is no injury or no recent change in activity. It is painful to move but there is no weakness, numbness or tingling. She takes ketoprofen and Flexeril with little relief. Over the last couple days she is also having a fluttering sensation under her left breast but its not painful. She has no chest pain, shortness of breath, ornausea or vomiting. She has a chronic smoker's cough which is unchanged. [facility] <ADRI Burgess - Last Filed: 12/25/22 14:24> [facility] Medical History Abdominal pain ADHD (attention deficit hyperactivity disorder), combined type Anxiety and depression Arthritis Back pain Bronchitis Cancer Cardiology follow-up encounter Cervical lymphadenopathy Cervical radiculopathy Chronic back pain Chronic pain Chronic RUQ pain Depression Easy bruising Ectopic cardiac beats Fatty liver Fibromyalgia NICOLÁS (generalized anxiety disorder) Almaz's thyroiditis Heartburn History of acne History of echocardiogram History of gestational diabetes History of pain when walking History of stress test History of ulceration Hypertension Hypocalcemia Injury of head and neck Left shoulder pain Left-sided low back pain with left-sided sciatica Leg cramps Localized swelling, mass and lump, neck Melanoma Migraine without aura and with status migrainosus, not intractable Morbid obesity MARCELINO (nonalcoholic steatohepatitis) Numbness and tingling of both upper extremities Numbness of both lower extremities Palpitations PONV (postoperative nausea and vomiting) Post herpetic neuralgia Restless legs Right femoral fracture RUQ abdominal pain Syncope Thyroid disease Tinnitus Tobacco abuse Vertigo Home Medications vitamin E mixed 400 unit capsule 800 unit PO .qd supplement 04/12/22 [History Last Taken Unknown] hydroxyzine pamoate 50 mg capsule 50 mg PO TID PRN anxiety #20 caps 05/30/22 [Rx Last Taken Unknown] meclizine 25 mg tablet 25 mg PO BID PRN dizziness #30 tabs 05/30/22 [Rx Last Taken Unknown] albuterol sulfate 2.5 mg/3 mL (0.083 %) solution for nebulization 2.5 mg (3 mL) inhalation Q6H PRN shortness of breath or wheezing #90 mL 06/27/22 [Rx Last Taken Unknown] levothyroxine 137 mcg tablet 137 mcg PO DAILY synthroid #90 tabs 09/02/22 [Rx Last Taken Unknown] ursodiol 300 mg capsule 300 mg PO BID #180 caps 09/02/22 [Rx Last Taken Unknown] ketoprofen 75 mg capsule 75 mg PO Q6H PRN Migraine Symptoms #100 caps 11/14/22 [Rx Last Taken Unknown] norethindrone acetate 5 mg tablet 5 mg PO DAILY #30 tabs 12/08/22 [Rx Last Taken Unknown] amlodipine 5 mg tablet 5 mg PO DAILY bp #90 tabs 12/15/22 [Rx Last Taken Unknown] prochlorperazine maleate 10 mg tablet (Compazine) 10 mg PO BID PRN Migraine Symptoms #30 tabs 12/15/22 [Rx Last Taken Unknown] methocarbamol 500 mg tablet 500 mg PO Q8H 5 days #15 tabs 12/25/22 [Rx Last Taken Unknown] Allergy/AdvReac Type Severity Reaction Status Date / Time latex Allergy Itching Verified 12/25/22 12:33 naproxen Allergy Unknown Verified 12/25/22 12:33 Penicillins [PCN] Allergy Rash Verified 12/25/22 12:33 escitalopram [From Lexapro] AdvReac Intermediate Lightheaded Verified 12/25/22 12:33 sertraline [From Zoloft] AdvReac Intermediate Dizzy & Verified 12/25/22 12:33 Headache dicyclomine [From Bentyl] AdvReac Unknown Unknown Verified 12/25/22 12:33 hydrocodone [From Vicodin] AdvReac Other Verified 12/25/22 12:33 ketorolac [From Toradol] AdvReac Other Verified 12/25/22 12:33 Family History Grandmother Diabetes Other Family history of skin cancer High cholesterol Hypertension Surgical History History of surgery on arm History of surgery on lower extremity History of thyroidectomy History of total vaginal hysterectomy (TVH) (~03/22/22) Status post incision and drainage (~04/15/22) Social History Smoking Status: Current every day smoker tobacco type: cigarettes Tobacco: How many years used: 13 Electronic Cigarette Use: not used second hand exposure: No alcohol intake: current alcohol intake frequency: holidays/special occasions only substance use type: does not use caffeine: Yes what type of physical activity do you participate in: none seatbelt use: always do you feel safe at home: Yes additional social history: [employer] <ADRI Burgess - Last Filed: 12/25/22 14:24> ROS ED ROS Narrative Constitutional: Negative for fever, chills, malaise. CVS: Negative for chest pain, syncope. Respiratory: Negative for shortness of breath, orthopnea. GI: Negative for abdominal pain, nausea, vomiting, diarrhea. Neuro: Negative for motor/sensory dysfunction. Skin: Negative for rash. EXAM <ADRI Burgess - Last Filed: 12/25/22 14:24> Physical Exam Narrative Exam Narrative: CONST: Patient sitting in no acute distress. EYES: Normal inspection. NECK: Normal inspection. No midline spinal tenderness, tender over left cervical paraspinals and left trapezius. RESP: No respiratory distress, CTAB. Chest wall nontender. No zoster. CVS: Regular rate and rhythm, no murmur, no gallop. ABD: Soft and nontender, no guarding or rebound, nondistended, no hepatosplenomegaly. Back: Normal inspection. SKIN: Color normal, no rash, warm, dry, intact. EXTREMITIES: Normal appearance, no pedal edema. NEURO: Oriented x4. PSYCH: Normal affect. Const Vital Signs: 12/25/22 12:31 12/25/22 13:19 Temperature 97.1 F L Temperature Source Temporal Pulse Rate 90 Respiratory Rate 18 Respiratory Effort Normal Blood Pressure 145/124 H Blood Pressure Mean 131 Pulse Ox 100 Oxygen Delivery Method Room Air <Dr. Ry Enamorado MD - Last Filed: 12/25/22 13:56> Physical Exam Const Vital Signs: 12/25/22 12:31 12/25/22 13:19 Temperature 97.1 F L Temperature Source Temporal Pulse Rate 90 Respiratory Rate 18 Respiratory Effort Normal Blood Pressure 145/124 H Blood Pressure Mean 131 Pulse Ox 100 Oxygen Delivery Method Room Air MDM <ADRI Burgess - Last Filed: 12/25/22 14:24> [facility] Narrative Medical decision making narrative: Patient has acute on chronic left trapezius/shoulder pain. She also has abnormal sensation under her left breast. She appears well and nontoxic with normal vital signs. Normal heart and lung sounds. There is no tenderness over left lower chest wall. No signs of zoster. No abdominal tenderness. She does have very reproducible musculoskeletal pain of her left neck and trapezius area so I suspect musculoskeletal etiology. She states she cannot take Toradol so I gave Norflex. Cardiac work-up was done and is unremarkable. CXR shows no acuteprocess. I prescribed Robaxin and she is already on NSAIDs. I do not think narcotics are appropriate since this is a chronic condition. I recommended she follow-up with her primary care or orthopedic doctor and she was discharged in stable condition. Differential: Musculoskeletal pain, cervical radiculopathy, rotator cuff etiology among others I have personally performed a face to face assessment of the patient and have reviewed the DEIDRE Note. I performed a substantive portion of the visit including all aspects of the following. My segura findings include: History is 37-year-old female with longstanding history of back, shoulder and chest musculoskeletal pain. Presents today with the same. She is used multipledifferent medications, anti-inflammatories and muscle relaxers without any relief. No history of DVT or PE or cardiac history. Exam is [well-appearing 37-year-old female. Vital signs are stable afebrile. She does not stress. Her pulse ox on percent on room air no signs hypoxia.] Medical Decision Making [HEENT exam unremarkable. Neck nontender no lymphadenopathy. Lungs clear to auscultation bilaterally. Heart regular rhythm no murmur rate about 85. She has reproducible pain over her left chest wall lateral rib cage and back musculature consistent musculoskeletal pain. There is no signs of trauma. No bony deformity. Abdomen soft nontender. Moving all 4 extremities. Equal symmetrical radial pulses. Calves are nontender without edema or cords. Neurologic exam normal.] Patient will undergo cardiac work-up clinically I do not think this is cardiac or PE in the musculoskeletal pain. Other additions or changes: [None] Lab Data Attestation: I reviewed the patient's lab results. Labs: Laboratory Results - last 24 hr 12/25/22 13:16 WBC 4.6 RBC 4.87 Hgb 13.4 Hct 42.1 MCV 86.4 MCH 27.5 MCHC 31.8 L RDW Std Deviation 40.4 RDW Coeff of Mikel 13.0 Plt Count 158 MPV 10.8 Immature Gran % (Auto) 0.400 Neut % (Auto) 58.5 Lymph % (Auto) 26.7 [place] % (Auto) 7.8 Eos % (Auto) 5.7 H Baso % (Auto) 0.9 Absolute Neuts (auto) 2.7 Absolute Lymphs (auto) 1.23 Nucleated RBC % 0 Sodium 138 Potassium 3.8 Chloride 106 Carbon Dioxide 26.0 Anion Gap 6 BUN 8 Creatinine 0.71 Estim Creat Clear Calc 103.53 Est GFR (MDRD) Af Amer 120 Est GFR (MDRD) Non-Af 100 BUN/Creatinine Ratio 11.3 Glucose 124 H Calcium 8.6 Troponin I High Sens 3 Radiography Diagnostic Testing: Clinical Impression(s) from Imaging Studies Chest X-Ray 12/25/22 13:15 IMPRESSION: Normal x-ray examination of the chest. Electronically Signed: Raul Odonnell MD at 13:33 EDT , ED attending interpretation of 2- view chest x-ray shows normal heart size, no acute infiltrate, edema, or effusion. EKG Initial EKG: Attestation: I personally reviewed and interpreted this EKG as follows: Comments: ED attending interpretation of EKG is normal sinus rhythm at 80 bpm, normal intervals, no ectopy, no STEMI criteria <Dr. Ry Enamorado MD - Last Filed: 12/25/22 13:56> MDM MDM Narrative Medical decision making narrative: I have personally performed a face to face assessment of the patient and have reviewed the DEIDRE Note. I performed a substantive portion of the visit including all aspects of the following. My segura findings include: History is 37-year-old female with longstanding history of back, shoulder and chest musculoskeletal pain. Presents today with the same. She is used multiple different medications, anti-inflammatories and muscle relaxers without any relief. No history of DVT or PE or cardiac history. Exam is [well-appearing 37-year-old female. Vital signs are stable afebrile. She does not stress. Her pulse ox on percent on room air no signs hypoxia.] Medical Decision Making [HEENT exam unremarkable. Neck nontender no lymphadenopathy. Lungs clear to auscultation bilaterally. Heart regular rhythm no murmur rate about 85. She has reproducible pain over her left chest wall lateral rib cage and back musculature consistent musculoskeletal pain. There is no signs of trauma. No bony deformity. Abdomen soft nontender. Moving all 4 extremities. Equal symmetrical radial pulses. Calves are nontender without edema or cords. Neurologic exam normal.] Patient will undergo cardiac work-up clinically I do not think this is cardiac or PE in the musculoskeletal pain. Other additions or changes: [None] History & Record Review Discussion w/independent historian: Patient Lab Data Lab results narrative: CBC normal. Chemistries unremarkable. Normal gap. Normal creatinine. Normal troponin 3. Chest x-ray is unremarkable. Labs: Laboratory Results - last 24 hr 12/25/22 13:16 WBC 4.6 RBC 4.87 Hgb 13.4 Hct 42.1 MCV 86.4 MCH 27.5 MCHC 31.8 L RDW Std Deviation 40.4 RDW Coeff of Mikel 13.0 Plt Count 158 MPV 10.8 Immature Gran % (Auto) 0.400 Neut % (Auto) 58.5 Lymph % (Auto) 26.7 [place] % (Auto) 7.8 Eos % (Auto) 5.7 H Baso % (Auto) 0.9 Absolute Neuts (auto) 2.7 Absolute Lymphs (auto) 1.23 Nucleated RBC % 0 Sodium 138 Potassium 3.8 Chloride 106 Carbon Dioxide 26.0 Anion Gap 6 BUN 8 Creatinine 0.71 Estim Creat Clear Calc 103.53 Est GFR (MDRD) Af Amer 120 Est GFR (MDRD) Non-Af 100 BUN/Creatinine Ratio 11.3 Glucose 124 H Calcium 8.6 Troponin I High Sens 3 Radiography Chest X-Ray - ED: 2 View, Read by ED Physician, Read by Radiologist, Normal, Heart, Lungs, Mediastinum, Bony Structures, No Acute Disease and Chronic Changes Diagnostic Testing: Clinical Impression(s) from Imaging Studies Chest X-Ray 12/25/22 13:15 IMPRESSION: Normal x-ray examination of the chest. Electronically Signed: Raul Odonnell MD at 13:33 EDT , Rhythm Strip Rhythm Strip: Sinus Rhythm Rate: 80 EKG Initial EKG: Interpretation: Sinus Rhythm and No Acute Injury Pattern Discharge Plan Triage Chief Complaint: Chest Other ED Midlevel Provider: Stephany Robbins ED Provider: Ry Enamorado Dx/Rx/DC Orders Clinical Impression: Musculoskeletal arm pain Instructions: Medicine for Pain, Chest Pain O Prescriptions: New methocarbamol 500 mg tablet 500 mg PO Q8H 5 Days Qty: 15 0RF No Action hydroxyzine pamoate 50 mg capsule 50 mg PO TID PRN (Reason: anxiety) Qty: 20 0RF meclizine 25 mg tablet 25 mg PO BID PRN (Reason: dizziness) Qty: 30 1RF levothyroxine 137 mcg tablet 137 mcg PO DAILY Qty: 90 1RF ursodiol 300 mg capsule 300 mg PO BID Qty: 180 1RF norethindrone acetate 5 mg tablet 5 mg PO DAILY Qty: 30 6RF vitamin E mixed 400 unit capsule 800 unit PO .qd albuterol sulfate 2.5 mg /3 mL (0.083 %) solution for nebulization 2.5 mg inhalation Q6H PRN (Reason: shortness of breath or wheezing) Qty: 90 1RF ketoprofen 75 mg capsule 75 mg PO Q6H PRN (Reason: Migraine Symptoms) Qty: 100 0RF Rx Instructions: 1 cap PO at on set of headache max of 3 in 24 hours, max 20 per month amlodipine 5 mg tablet 5 mg PO DAILY Qty: 90 1RF prochlorperazine maleate [Compazine] 10 mg tablet 10 mg PO BID PRN (Reason: Migraine Symptoms) Qty: 30 1RF Primary Care Provider: Aleena London Referrals: Aleena London MD [Primary Care Provider] - Activity Restrictions/Additional Instructions: Today your cardiac work-up was normal. Based on your examination I think you have musculoskeletal pain in the trapezius and shoulder area and prescribed a different muscle relaxer you can try. You can also add Tylenol 1000 mg every 6 hours to your regimen of ketoprofen. Please follow-up with your primary care doctor. Disposition Disposition: Home, Self Care What to do if you have Problems For any increased pain, shortness of breath, bleeding, nausea or vomiting, chestpain, or any unexpected problems, contact your Primary Care Provider. Call [facility] ([phone]) or report to the closest Emergency Room. Call 911 if necessary. 12/25/22 1356 <Electronically signed by Ry Enamorado MD> Cosigner Signature (if applicable): 12/25/22 1424 <Electronically signed by Stephany RUSH> CC: Dr. Aleena London MD ~ Signed [facility] Work Phone: 1(137) 904-675107-01-2023 Discharge summary Author Jesi Padilla [facility] November 20, 2022 12:04am Note Date/Time November 19, 2022 9:23p [facility] Medical Records Department [address] [place] [address] Emergency Department Summary 11/19/22 MR#: [id number] Acct: [id number] Name: LANA RIVERA Rep #:[id number] : 1985 37 From: Jesi Padilla MD PCP: Dr. Aleena London MD Status:R EG ER Location: ED HPI HPI - GI History of Present Illness Chief Complaint: Abd Pain Informant: patient Narrative Narrative: Presents with abdominal pain. Patient's having right upper quadrant abdominal pain. It sounds like she has been having this abdominal pain off and on for quite some time. She has been seen here a couple weeks ago for this. But she has prior visits for abdominal pain. She also has a history of pain from her right ovarian cyst. But she is not having that pain today. She frequently has abdominal pain in fact she says her abdominal pain never goes away. She is seeing Dr. Tracy. She has a study coming up in the next 10 days for liver stiffness and she also has a HIDA scan scheduled. She states the pain increased about 7:00 today. But then she statesshe has been having it more for the last few days or week. She ate goulash for lunch. She has not eaten dinner but she states she is very hungry right now. She might be getting a little bit nauseated now but no vomiting no diarrhea no blood. Prior abdominal surgeries hysterectomy and left oophorectomy. She also got a postoperative infection and had repeat surgery for this. This certainly could be the origin of some of her pain possibly from scarring. [facility] Medical History Abdominal pain ADHD (attention deficit hyperactivity disorder), combined type Anxiety and depression Arthritis Back pain Bronchitis Cancer Cardiology follow-up encounter Cervical lymphadenopathy Cervical radiculopathy Chronic back pain Chronic pain Chronic RUQ pain Depression Easy bruising Ectopic cardiac beats Fatty liver Fibromyalgia NICOLÁS (generalized anxiety disorder) Almaz's thyroiditis Heartburn History of acne History of echocardiogram History of gestational diabetes History of pain when walking History of stress test Hypertension Hypocalcemia Injury of head and neck Left shoulder pain Left-sided low back pain with left-sided sciatica Localized swelling, mass and lump, neck Melanoma Migraine without aura and with status migrainosus, not intractable Morbid obesity MARCELINO (nonalcoholic steatohepatitis) Numbness and tingling of both upper extremities Numbness of both lower extremities Palpitations Post herpetic neuralgia Restless legs Right femoral fracture RUQ abdominal pain Syncope Thyroid disease Tinnitus Tobacco abuse Vertigo Home Medications vitamin E mixed 400 unit capsule 800 unit PO .qd supplement 04/12/22 [History Last Taken Unknown] amlodipine 5 mg tablet 5 mg PO DAILY bp #90 tabs 05/30/22 [Rx Last Taken Unknown] hydroxyzine pamoate 50 mg capsule 50 mg PO TID PRN anxiety #20 caps 05/30/22 [Rx Last Taken Unknown] meclizine 25 mg tablet 25 mg PO BID PRN dizziness #30 tabs 05/30/22 [Rx Last Taken Unknown] albuterol sulfate 2.5 mg/3 mL (0.083 %) solution for nebulization 2.5 mg (3 mL) inhalation Q6H PRN shortness of breath or wheezing #90 mL 06/27/22 [Rx Last Taken Unknown] cholecalciferol (vitamin D3) 1,250 mcg (50,000 unit) capsule 1,250 mcg PO QWEEK #14 caps 09/02/22 [Rx Last Taken Unknown] levothyroxine 137 mcg tablet 137 mcg PO DAILY synthroid #90 tabs 09/02/22 [Rx Last Taken Unknown] prochlorperazine maleate 10 mg tablet (Compazine) 10 mg PO BID PRN Migraine Symptoms #30 tabs 09/02/22 [Rx Last Taken Unknown] ursodiol 300 mg capsule 300 mg PO BID #180 caps 09/02/22 [Rx Last Taken Unknown] venlafaxine 37.5 mg capsule,extended release 24 hr (Effexor XR) 37.5 mg PO DAILY#60 caps 09/02/22 [Rx Last Taken Unknown] ondansetron 4 mg disintegrating tablet 4 mg PO Q8H PRN PRN Nausea #10 tabs 11/08/22 [Rx Last Taken Unknown] oxycodone-acetaminophen 5 mg-325 mg tablet (Percocet) 1 tab PO Q8H PRN pain 3 days #10 tabs 11/08/22 [Rx Last Taken Unknown] ketoprofen 75 mg capsule 75 mg PO Q6H PRN Migraine Symptoms #100 caps 11/14/22 [Rx Last Taken Unknown] oxycodone-acetaminophen 5 mg-325 mg tablet 1 tab PO Q6H PRN PRN Pain 3 days #10 TABLETS 11/20/22 [Rx Last Taken Unknown] Allergy/AdvReac Type Severity Reaction Status Date / Time promethazine [From Phenergan] Allergy Unknown Unknown Verified 11/19/22 20:49 latex Allergy Itching Verified 11/19/22 20:49 naproxen Allergy Unknown Verified 11/19/22 20:49 Penicillins [PCN] Allergy Rash Verified 11/19/22 20:49 escitalopram [From Lexapro] AdvReac Intermediate Lightheaded Verified 11/19/22 20:49 sertraline [From Zoloft] AdvReac Intermediate Dizzy & Verified 11/19/22 20:49 Headache dicyclomine [From Bentyl] AdvReac Unknown Unknown Verified 11/19/22 20:49 hydrocodone [From Vicodin] AdvReac Other Verified 11/19/22 20:49 ketorolac [From Toradol] AdvReac Other Verified 11/19/22 20:49 Family History Grandmother Diabetes Other Family history of skin cancer High cholesterol Hypertension Surgical History History of surgery on arm History of thyroidectomy History of total vaginal hysterectomy (TVH) (~03/22/22) Status post incision and drainage (~04/15/22) Social History Smoking Status: Current every day smoker tobacco type: cigarettes Tobacco: How many years used: 13 Electronic Cigarette Use: not used second hand exposure: No alcohol intake: current alcohol intake frequency: holidays/special occasions only substance use type: does not use caffeine: Yes what type of physical activity do you participate in: none seatbelt use: always do you feel safe at home: Yes additional social history: [employer] [facility] ED ROS Narrative A complete review of systems was performed and is negative except as documented in the history of present illness. Some specific details below. Constitutional: No recent fevers or chills. EYE: No visual complaints or pain. ENT: No difficulty swallowing. No swelling. No pain. CV: No chest pain or palpitations. Respiratory: No dyspnea. No hemoptysis. No difficulty taking breaths. GI: Please see history of present illness. : No frequency dysuria or hematuria. Musculoskeletal: No recent trauma. No pains. Skin: No rash. Nondiaphoretic. Neuro: No weakness or numbness. Endocrine: No polyuria or polydipsia. EXAM Physical Exam Narrative Exam Narrative: CONSTITUTIONAL: Patient is nontoxic in appearance. The patient looks comfortable. HEENT: No notable trauma. Mucous membranes moist. No sinus tenderness. No indication of pain with swallowing. EYES: No conjunctival injection. No icterus. CARDIOVASCULAR: Regular rate. Regular rhythm. No notable murmur. No JVD. RESPIRATORY: No respiratory distress. Breathing is unlabored. No wheezes. No rhonchi. No rales. No pain with a deep breath. GASTROINTESTINAL: Not distended. Bowel sounds are normal. Abdomen shows no lesions or skin changes. She has tenderness in the right upper quadrant with just palpation of the skin. I am not getting rebound or guarding. I am not able to feel a mass. She also has a component of soreness with motion. No lower abdominal tenderness. GENITOURINARY: No tenderness over the bladder. No CVA tenderness. MUSCULOSKELETAL: Atraumatic. No peripheral edema. NEUROLOGICAL: Patient is alert and appropriate. No focal deficit noted. SKIN: No noted rashes. No diaphoresis. PSYCHIATRIC: Patient is calm. Mood is appropriate. Const Vital Signs: 11/19/22 20:47 Temperature 97.6 F L Temperature Source Temporal Pulse Rate 99 Respiratory Rate 14 Blood Pressure 130/94 H Blood Pressure Mean 106 Pulse Ox 100 MDM MDM MDM Narrative Medical decision making narrative: Patient CBC is normal. Patient's electrolytes are normal. Patient's liver function test are normal. Patient's lipase is normal. My independent interpretation of the CT shows no sign of acute obstruction or abnormal fluid collection. Final reading did shows what is suspected to be the right ovary. Clinically and historically this is the ovary that is remaining. No other acute process to explain the patient's symptoms. I am wondering if this patient's symptoms may be related to prior scarring. Sheis being worked up for gallbladder issues and it sounds like she has a HIDA scan. She does have slight abnormalities of the liver that are stable. She hasseen her CLINICAL CODER and then a specialist in [place] but they do not want to remove the ovary due to significant scarring that was in the area at prior surgery. I wonder if she is having adhesions causing some of her symptoms although I cannotverify this. I will give her a few pain meds. She has close follow-up with hergastroenterologist and further studies in the next 2 weeks. Lab Data Attestation: I reviewed the patient's lab results. Labs: Laboratory Results - last 24 hr 11/19/22 21:50 WBC 6.0 RBC 4.91 Hgb 13.5 Hct 41.9 MCV 85.3 MCH 27.5 MCHC 32.2 RDW Std Deviation 39.4 RDW Coeff of Mikel 12.7 Plt Count 194 MPV 10.7 Immature Gran % (Auto) 0.300 Neut % (Auto) 55.7 Lymph % (Auto) 30.7 [place] % (Auto) 8.1 Eos % (Auto) 4.7 Baso % (Auto) 0.5 Absolute Neuts (auto) 3.3 Absolute Lymphs (auto) 1.83 Nucleated RBC % 0 Sodium 138 Potassium 3.5 Chloride 105 Carbon Dioxide 30.0 Anion Gap 3 L BUN 11 Creatinine 0.80 Estim Creat Clear Calc 91.88 Est GFR (MDRD) Af Amer 105 Est GFR (MDRD) Non-Af 86 BUN/Creatinine Ratio 13.7 Glucose 95 Calcium 9.2 Total Bilirubin 0.40 AST 15 ALT 25 Alkaline Phosphatase 74 Total Protein 7.4 Albumin 3.7 Globulin 3.7 Albumin/Globulin Ratio 1.0 Lipase 30 Radiography Diagnostic Testing: Clinical Impression(s) from Imaging Studies Abdomen/Pelvis CT 11/19/22 21:18 IMPRESSION: 1. Previous partial hysterectomy with residual prominent right ovary. No significant free pelvic fluid or other acute intra-abdominal abnormality. 2. Stable hepatomegaly and borderline splenomegaly. 3. Other chronic and nonurgent findings within body of report. Electronically Signed: Libertad Camp MD at 23:09 EDT , Discharge Plan Triage Chief Complaint: Abd Pain ED Provider: Jesi Padilla Dx/Rx/DC Orders Clinical Impression: Right sided abdominal pain Instructions: ED Abdominal Pain Unkn Cause Fem Prescriptions: New oxycodone-acetaminophen [oxycodone-acetaminophen] 5-325 mg tablet 1 tab PO Q6H PRN PRN (Reason: Pain) 3 Days Qty: 10 0RF No Action amlodipine 5 mg tablet 5 mg PO DAILY Qty: 90 1RF hydroxyzine pamoate 50 mg capsule 50 mg PO TID PRN (Reason: anxiety) Qty: 20 0RF meclizine 25 mg tablet 25 mg PO BID PRN (Reason: dizziness) Qty: 30 1RF levothyroxine 137 mcg tablet 137 mcg PO DAILY Qty: 90 1RF ursodiol 300 mg capsule 300 mg PO BID Qty: 180 1RF prochlorperazine maleate [Compazine] 10 mg tablet 10 mg PO BID PRN (Reason: Migraine Symptoms) Qty: 30 1RF cholecalciferol (vitamin D3) 1,250 mcg (50,000 unit) capsule 1,250 mcg PO QWEEK Qty: 14 1RF venlafaxine [Effexor XR] 37.5 mg capsule,extended release 24hr 37.5 mg PO DAILY Qty: 60 2RF Rx Instructions: Take daily x 2 weeks the increase to 75 mg vitamin E mixed 400 unit capsule 800 unit PO .qd oxycodone-acetaminophen [Percocet] 5-325 mg tablet 1 tab PO Q8H PRN (Reason: pain) 3 Days Qty: 10 0RF ondansetron 4 mg tablet,disintegrating 4 mg PO Q8H PRN PRN (Reason: Nausea) Qty: 10 0RF albuterol sulfate 2.5 mg /3 mL (0.083 %) solution for nebulization 2.5 mg inhalation Q6H PRN (Reason: shortness of breath or wheezing) Qty: 90 1RF ketoprofen 75 mg capsule 75 mg PO Q6H PRN (Reason: Migraine Symptoms) Qty: 100 0RF Rx Instructions: 1 cap PO at on set of headache max of 3 in 24 hours, max 20 per month Primary Care Provider: Aleena London Referrals: Aleena London MD [Primary Care Provider] - As soon as possible Activity Restrictions/Additional Instructions: Follow-up with Dr. Tracy and your nursing support worker. Disposition Disposition: Home, Self Care What to do if you have Problems For any increased pain, shortness of breath, bleeding, nausea or vomiting, chestpain, or any unexpected problems, contact your Primary Care Provider. Call [facility] ([phone]) or report to the closest Emergency Room. Call 911 if necessary. 11/20/22 0004 <Electronically signed by Jesi Padilla MD> Cosigner Signature (if applicable): CC: Dr. Aleena London MD ~ Signed [facility] Work Phone: 1(876) [phone] NoteHNO ID: [id number] Author: LUKASZ EUBANKS MD Service: ? Author Type: Physician Type: Progress Notes Filed: 07/08/2023 09:43 Note Text: GYNECOLOGIC ONCOLOGY HISTORY AND PHYSICAL EXAMINATION SERVICE DATE: 11/16/2022 SERVICE TIME: 4:55 PM PRIMARY CARE PHYSICIAN: Nima Kaur MD CHIEF COMPLAINT/HISTORY OF PRESENT ILLNESS/ROS: CC: [...] years as her is s/p vasectomy. Her Emission Technician is Dr. Garcia and Dr. Moore The [...] bleeding, vaginal discharge and vaginal pain. PAST MEDICAL/SURGICAL/OB-CONE FORMER/FAMILY/SOCIAL HISTORY: PAST MEDICAL HISTORY Diagnosis Date ADHD [...] 12/27/2018 Specifically denies any history of diabetes, NH, or VTE. Melanoma on left breast, removed [...] any other history of abdominal surgery PAST CLINICAL CODER HISTORY: OB History OB History T3 L2 SAB0 IAB1 Ectopic0 Multiple0 Live Births2 Fire Adjuster History LMP: 04/22/2020, Having periods Age at Menarche: Age at First : Age at Menopause: Fire Adjuster History Comments: Sexual Activity: Yes; Male Contraception: None Hormonal contraceptives: Yes, 12-13 years ago How long: roughly 5-10 years. HRT use: No. History of abnormal pap: Yes, 2 (more content not included)...[facility]06-28-2023 History of Present illness Narrative* Lukasz Eubanks MD - 11/16/2022 10:30 AM EDT GYNECOLOGIC ONCOLOGY HISTORY AND PHYSICAL EXAMINATION SERVICE DATE: 11/16/2022 SERVICE TIME: 4:55 PM PRIMARY CARE PHYSICIAN: Nima Kaur MD CHIEF COMPLAINT/HISTORY OF PRESENT ILLNESS/ROS: CC: [...] disease. She had her uterus and tubes removedas planned but she also had the left [...] (x16 years) and she declines Or[place]issa as shedoesn't want the bone loss side effect. She is a with hx of two normal spontaneous vaginal deliveries. She has not used contraception in 12 years as her is s/p vasectomy. Her Emission Technician is Dr. Garcia and Dr. Moore The history is provided by the patient. ROS: Review of Systems Constitutional: Negative for activity change, appetite change, fatigue, fever and unexpected weightchange. Cardiovascular: Negative for chest pain and palpitations. Gastrointestinal: Positive for abdominal pain. Negative for constipation, diarrhea, nausea and vomiting. Genitourinary: Positive for pelvic pain. Negative for vaginal bleeding, vaginal discharge and vaginal pain. PAST MEDICAL/SURGICAL/OB-CONE FORMER/FAMILY/SOCIAL HISTORY: PAST MEDICAL HISTORY Diagnosis Date ADHD [...] 12/27/2018 Specifically denies any history of diabetes, NH, or VTE. 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 Last year has been living in old [...] (98.6 F) (Oral) Ht 167.6 cm (5' 6) Wt 102.1 kg (225 lb) LMP 04/22/2020 [...] x 3.2 cm. No free fluid. ASSESSMENT/PLAN: Lana Rivera is a 37 year old with history [...] which included preparing to see the patient, [id number] patient care, completing clinical documentation, obtaining and/or reviewing separately obtained history, performing a medically appropriate examination, and counseling and educating the patient/family/caregiver. Lukasz Eubanks MD, MS Gynecologic Oncologist [facility] Discharge instructions Patient Education 08/15/2022 16:51:47 ED Pain Management (04/2018)(CUSTOM) WELCOME Pain Management in our Emergency/Acute Care Facility Our staff understands that pain relief is important when someone is hurt or needs emergency care. However, providing ongoing pain relief is often complex. We recommend this be done through your primary health care provider such as your family doctor or paint spraying machine operator helper. Because mistakes or misuses of pain medication [...] show a valid photo ID (like a escort vehicle driver's license) when you check into the emergency/acute care facility or before receiving a prescription for narcotic pain medication. If you do nothave a photo ID, we may take your picture for the medical record. We may ask you to give a urine sample before prescribing narcotic pain medication. Health care laws, including HIPAA, allow us to request your medical record and share information with other health care providers who are treating you. Before prescribing a narcotic or other controlled substance, we check the [place] Automated Rx Reporting system (OARRS) or a [...] or call the Crisis Intervention Center of [facility] at [phone]. It is against the law to attempt to obtain controlled substance pain medicines by deceiving the health care provider caring for you. This can include getting multiple prescriptions from more than oneprovider or using someone else s name to obtain a prescription. Follow Up Care 08/15/2022 15:50:06 With:ALEENA LONDON MD Address: [address] [place] [address]- [phone] When:2-4 days [facility] 03-27-2023 Note Discharge Instructions Thank you for allowing [facility] to assist you with your healthcare needs. The following is importantdischarge information regarding your hospital visit. Diagnosis from Today's Visit Lower leg pain-swelling What to Do Next Instructions from Your Care Team No qualifying data available. Post Acute Orders No qualifying data available. You Need to Schedule the Following Appointments Follow Up with ALEENA LONDON MD When Within 2-4 days Where: [address] [place] [address] [phone] Allergies Latex (Rash) penicillin (Rash) Medications Please ask your primary doctor or pharmacist before taking any other medication not listed, including over the counter drugs, herbal medications, vitamins and or supplements as they may interact withyour home medications. What How Much When Instructions [...] such as your family doctor or paint spraying machine operator helper. Because mistakes or misuses of pain medication [...] show a valid photo ID (like a escort vehicle driver's license) when you check into the emergency/acute care facility or before receiving a prescription for narcotic pain medication. If you do nothave a photo ID, we may take your picture for the medical record. We may ask you to give a urine sample before prescribing narcotic pain medication. Health care laws, including HIPAA, allow us to request your medical record and share information with other health care providers who are treating you. Before prescribing a narcotic or other controlled substance, we check the [place] Automated Rx Reporting system (OARRS) or a [...] Monday: or call the Crisis Intervention Center [facility] at [phone]. It is against the law to attempt to obtain controlled substance pain medicines by deceiving the health care provider caring for you. This can include getting multiple prescriptions from more than oneprovider or using someone else s name to obtain a prescription. Additional Information VACCINATE! IT SAVES LIVES! Members of the community who have not yet received the COVID-19 vaccine and would like to receive it can visit one of [facility] vaccine clinics. There are many vaccine clinic locations within the [facility]. For locations and available times, please visit www.[email or web address].[place].gov/. It is important to note that some COVID mobile vaccine clinics are held outdoors and may be canceled in rainy or stormy conditions. To learn more about pediatric vaccinations (ages 5-11), we invite you to visit the [facility] webpage. https://www.[email or web address].org/pages/0539-Nxibf-Fekeaxrrrkj-Jgvekmeskl-Marbg-Jra stions.htmlTo learn more about the COVID-19 vaccine, we invite you to visit the CDC website for a list of frequently asked questions. https://www.cdc.gov/coronavirus/2019-ncov/vaccines/faq.html [facility] Patient Portal Access Instructions: Stay connected with your healthcare team and access your personal medical information anytime with the [facility] Patient Portal. If you would like a full copy of your medical records please contact the [facility] Medical Records Department Monday through Monday between 8a.m. and 4:30p.m. Please follow the directions below to access the portal: 1.Access the email account you provided upon registration to the hospital.2.Look for an invitation email from [facility].3.Open the email and access the invitation link: Accept Invitation to [facility]4.Fill in the required still to create your account. Sign into [email or web address] with your username and password that you [...] you will allow to register on the [facility] Patient Portal for access to your information. You can also access the [facility] Patient Portal on the [employer] deidre. Simply click on Health Records under Everywun and then click on the [employer] logo. HOW TO SAFELY DISPOSE OF PRESCRIPTION MEDICATIONS Please use one of the following methods to safely dispose of your unused medications. 1.Use a drug disposal kit: the drug disposal pouch allows you to safely discard your old and unuseddrugs. Ask your nurse to give you one when you are discharged.2.Visit a local take-back location: Many local pharmacies and police departments have programs that collect old and unwanted prescriptiondrugs. Call your local pharmacy or go to http://[email or web address]/1I0Ij5q to find one close to you.3.Make use of household items: Use cat litter or old coffee grounds to dispose medications if other options arenot available. Mix your drugs with these household products, seal them in an airtight container andthrow it into the garbage. Call [facility]: [phone] to be sure your drugs can be [...] drowsiness, such as benzodiazepines, also known as benzos,including diazepam and alprazolam, muscle relaxants or sleep aids. Never sell or share prescriptionopioids. This is illegal. Store opioids in a secure place and out of reach of others (including children, family, friends and visitors). The last page(s) of this document has been signed and retained as a CHART COPY Signatures Patient Education Materials ED Pain Management (04/2018)(CUSTOM) Medication Leaflets My discharge plan and instructions have been reviewed and explained to me and I,LANA RIVERA understand my current condition and have read and understand these discharge instructions. I have received a written copy of the plan/instructions. If I have questions, I am aware that I should contact my doctor. Patient/Pole Framer Signature: Date/Time: Relationship to Patient: Witness Name/Signature: Date/Time: [facility]08-12-2021 History of Present illness Narrative * Myrna Kumar, RT(R) - 12/31/2020 1:00 PM EDT Radiology Service Progress Note PATIENT NAME: Lana Rivera DATE OF SERVICE: December 31, 2020 TIME: 1:01 PM PATIENT IDENTITY VERIFICATION COMPLETED USING TWO (2) IDENTIFIERS: Name and Date of confirmedby patient verbally. FALL SCREENING: Has the patient had 2 falls in the last year or 1 fall with injury or currently using an Ambulatory Assistive Device (Walker, Cane, Wheelchair, Crutches, etc.)? No PATIENT GENDER DATA: Female. status: : No status: NO. PATIENT RELEVANT IMPLANT DATA REVIEWED: Yes RADIOLOGY DEPARTMENT: General X-ray: Exam(s) Completed: Upper Extremity X- Ray(s): Shoulder, AP / TRUE AP / AXILLARY left PERIPHERAL IV DATA: Not applicable SIGNED BY: RT Bhumi(Riley) December 31, 2020 1:01 PM [facility] History of Present illness Narrative* Zully Arana Tech (Tech) - 06/25/2020 3:40 PM EST Radiology Service Progress Note PATIENT NAME: Lana Rivera DATE OF SERVICE: June 25, 2020 TIME: 3:44 PM PATIENT IDENTITY VERIFICATION COMPLETED USING TWO (2) IDENTIFIERS: Name and Date of confirmedby patient verbally. FALL SCREENING: Has the patient had 2 falls in the last year or 1 fall with injury or currently using an Ambulatory Assistive Device (Walker, Cane, Wheelchair, Crutches, etc.)? No PATIENT GENDER DATA: Female. status: : No status: NO. PATIENT RELEVANT IMPLANT DATA REVIEWED: Not Applicable RADIOLOGY DEPARTMENT: General X-ray: Exam(s) Completed: Chest X-Ray PERIPHERAL IV DATA: Not applicable SIGNED BY: Madhavi Madrigal June 25, 2020 3:44 PM [facility] [address] [facility] History of Past illness Narrative* Problem Noted [...] of this encounter (statuses as of 02/03/2023) [facility] of Past illness Narrative* Problem Noted [...] of this encounter (statuses as of 07/08/2023) [facility] of Past illness Narrative* Problem Noted [...] as of this encounter (statuses as of 08/30/2023) [facility] June 10, 2022 11:20am Note Date/Time June 10, 2022 9 :38am [facility] Medical Records Department [address] [place] [address] Emergency Department Summary 06/10/22 MR#: [id number] Acct: [id number] Name: LANA RIVERA Rep #:[id number] : 1985 37 From: Sorin Jacobs MD PCP: Dr. Aleena London MD Status:R EG ER Location: ED HPI History of Present Illness Chief Complaint: Abd Pain Informant: patient Onset/Context/Timing Onset: Weeks Context: Sudden Onset Timing: Continuous Quality: Sharp to dull Location: Bilateral lower quadrant sharp pain to dull pain and sharp pain in thepelv Current Severity: Mild Maximum Severity: Severe Worsened by: Bending down, sitting Relieved by: Improves sitting in a hot tub Associated Symptoms Associated Symptoms: Nausea Narrative Narrative: Patient is a 37-year-old female status post total vaginal hysterectomy with a left oophorectomy by Dr. Cassidy Moore on March 22. The operative note indicated no complications. Patient underwent surgery on April 15 for pelvicabscess status post hysterectomy. There was a right ovarian cyst noted. Since development of abscess patient's had problems with pelvic pain. Pelvic pain wasworse and patient was seen by Dr. Dimple Garcia on May 25. Diagnosis was ovarian cyst, acute pain and pelvis as well as postoperative pain and abscess. Plan was repeat ultrasound in 4 weeks if no resolution. Recommendation was rest, mild pain medicine, warm baths and if she becomes worseto return to the emergency room with imaging. [facility] Medical History Abdominal pain Acute bronchitis, unspecified Acute sinusitis, unspecified ADHD (attention deficit hyperactivity disorder), combined type Arthritis Back pain Back pain Bronchitis Cancer Cardiology follow-up encounter Cervical lymphadenopathy Cervical radiculopathy Chronic back pain Chronic low back pain Chronic pain Chronic RUQ pain Depression Easy bruising Ectopic cardiac beats Fatty liver Fibromyalgia NICOLÁS (generalized anxiety disorder) Almaz's thyroiditis Heartburn History of acne History of echocardiogram History of gestational diabetes History of pain when walking History of stress test Hypertension Hypocalcemia Injury of head and neck Left-sided low back pain with left-sided sciatica Localized swelling, mass and lump, neck Melanoma Migraine without aura and with status migrainosus, not intractable Morbid obesity MARCELINO (nonalcoholic steatohepatitis) Numbness and tingling of both upper extremities Numbness of both lower extremities Palpitations Post herpetic neuralgia Restless legs Right femoral fracture RUQ abdominal pain Syncope Thyroid disease Tinnitus Tobacco abuse Vertigo Home Medications vitamin E mixed 400 unit capsule 800 unit PO .qd supplement 04/12/22 [History Last Taken Unknown] amlodipine 5 mg tablet 5 mg PO DAILY bp #90 tabs 05/30/22 [Rx Last Taken Unknown] cholecalciferol (vitamin D3) 1,250 mcg (50,000 unit) capsule 1,250 mcg PO QWEEK #14 caps 05/30/22 [Rx Last Taken Unknown] hydroxyzine pamoate 50 mg capsule 50 mg PO TID PRN anxiety #20 caps 05/30/22 [Rx Last Taken Unknown] ketoprofen 75 mg capsule 75 mg PO Q6H PRN Migraine Symptoms #100 caps 05/30/22 [Rx Last Taken Unknown] meclizine 25 mg tablet 25 mg PO BID PRN dizziness #30 tabs 05/30/22 [Rx Last Taken Unknown] prochlorperazine maleate 10 mg tablet (Compazine) 10 mg PO BID PRN Migraine Symptoms #30 tabs 05/30/22 [Rx Last Taken Unknown] ursodiol 300 mg capsule 300 mg PO BID #180 caps 05/30/22 [Rx Last Taken Unknown] levothyroxine 137 mcg tablet 137 mcg PO DAILY synthroid #90 tabs 05/31/22 [Rx Last Taken Unknown] Allergy/AdvReac Type Severity Reaction Status Date / Time promethazine [From Phenergan] Allergy Unknown Unknown Verified 06/10/22 09:13 latex Allergy Itching Verified 06/10/22 09:13 naproxen Allergy Unknown Verified 06/10/22 09:13 Penicillins [PCN] Allergy Rash Verified 06/10/22 09:13 escitalopram [From Lexapro] AdvReac Intermediate Lightheaded Verified 06/10/22 09:13 sertraline [From Zoloft] AdvReac Intermediate Dizzy & Verified 06/10/22 09:13 Headache dicyclomine [From Bentyl] AdvReac Unknown Unknown Verified 06/10/22 09:13 hydrocodone [From Vicodin] AdvReac Other Verified 06/10/22 09:13 ketorolac [From Toradol] AdvReac Other Verified 06/10/22 09:13 Family History Grandmother Diabetes Other Family history of skin cancer High cholesterol Hypertension Surgical History History of surgery on arm History of thyroidectomy History of total vaginal hysterectomy (TVH) (~03/22/22) Status post incision and drainage (~04/15/22) Social History Smoking Status: Current every day smoker tobacco type: cigarettes Tobacco: How many years used: 13 Electronic Cigarette Use: not used second hand exposure: No alcohol intake: current alcohol intake frequency: holidays/special occasions only substance use type: does not use caffeine: Yes what type of physical activity do you participate in: none seatbelt use: always do you feel safe at home: Yes additional social history: [employer] ED Constitutional Constitutional ED: Denies chills, fever(s), subjective, sweats or weight loss Eyes Eyes: Denies blurry vision, change in vision or diplopia ENT ENT ED: Denies ear pain, rhinorrhea or sore throat Cardiovascular Cardiovascular: Denies chest pain, orthopnea, palpitations, paroxysmal nocturnaldyspnea or racing heartbeat Respiratory/Chest Respiratory/Chest: Denies cough, dyspnea, dyspnea on exertion, orthopnea or paroxysmal nocturnal dyspnea Gastrointestinal Gastrointestinal: Reports abdominal pain and nausea; Denies constipation, diarrhea, melena or vomiting Genitourinary Genitourinary ED: Denies dysuria, hematuria or urinary frequency Musculoskeletal Musculoskeletal: Reports back pain and other Details: Back pain is chronic. ; Denies arthralgias, myalgias or neck pain Integumentary Denies Abrasions or rash Neurologic Neurologic: Denies headache(s), paresthesias or weakness Psychiatric Psychiatric: Denies anxiety or depression Endocrine Endocrinology: Denies polydipsia or polyuria Hematologic/Lymphatic Hematologic/Lymphatic: Reports systems reviewed and no addt'l complaints, exceptas documented EXAM Physical Exam Const Vital Signs: 06/10/22 09:10 Temperature 98.1 F Temperature Source Temporal Pulse Rate 96 Respiratory Rate 15 Blood Pressure 142/127 H Blood Pressure Mean 132 Pulse Ox 100 Oxygen Delivery Method Room Air Positive well nourished, well developed and obese Constitutional Narrative: Patient appears uncomfortable. General Appearance ED: well developed; Negative for cyanotic, diaphoretic or pallor Nutritional Appearance: obese HEENT Reports moist mucous membranes HEENT Narrative: Head is atraumatic normocephalic. Ears normal. Nares patent. Uvula midline. No deviation of her protrusion. Eyes PERRL and EOMs intact bilaterally General Eye ED: Negative for pale conjunctiva or scleral icterus Neck no lymphadenopathy, supple and no JVD Chest Wall inspection of chest normal and palpation of chest normal Resp normal respiratory effort and clear to auscultation bilaterally Cardio regular rate, regular rhythm, S1 normal heart sound, S2 normal heart sound and no murmurs GI non-tender, non-distended and no masses; Negative for hepatosplenomegaly GI Narrative: Incision site is well-healed without evidence infection. There is no fluctuancein the area. Inspection: Negative for abdominal distention Auscultation: hypoactive bowel sounds Palpation: soft, tender LLQ and RLQ, guarding LLQ and RLQ and rebound tendernesspresent; Negative for splenomegaly or mass Back/Spine no CVA tenderness Cervical Spine: Negative for cervical spine tenderness Thoracic Spine / Upper Back: Negative for thoracic spinal tenderness Lumbar Spine / Lower Back: Negative for lumbar spinal tenderness Extremity normal to inspection General Extremety ED: Negative for edema or tenderness General Extremity: Negative for edema Neuro oriented x3, CN's II-XII intact bilaterally and no sensory deficits noted Sensorium / Orientation: alert Psych mental status grossly normal Skin no rashes or lesions noted, no wounds and skin turgor normal General Skin Exam: Negative for jaundice or pallor MDM MDM MDM Narrative Medical decision making narrative: Patient presents with worsening lower abdominal pain. This may represent adhesions, recurrent infection, ruptured ovarian cyst, doubt ovarian torsion based on report from office visit dated May 25, 2013. Doubt urinary symptoms. Patient was offered pain medicine which she declined. She was treated with Zofran for nausea. Records from outside facilities were reviewed and documented in the HPI narrative. Lab Data Attestation: I reviewed the patient's lab results. Lab results narrative: Patient is neutropenic with no shift. H&H is unremarkable. Labs: Laboratory Results - last 24 hr 06/10/22 06/10/22 09:43 09:43 WBC 3.6 L RBC 4.73 Hgb 12.9 Hct 40.4 MCV 85.4 MCH 27.3 MCHC 31.9 L RDW Std Deviation 46.7 H RDW Coeff of Mikel 14.9 H Plt Count 166 MPV 10.8 Immature Gran % (Auto) 0.300 Neut % (Auto) 56.4 Lymph % (Auto) 26.4 [place] % (Auto) 8.3 Eos % (Auto) 8.0 H Baso % (Auto) 0.6 Absolute Neuts (auto) 2.1 Absolute Lymphs (auto) 0.96 Nucleated RBC % 0 Sodium 139 Potassium 3.9 Chloride 106 Carbon Dioxide 26.0 Anion Gap 7 BUN 6 L Creatinine 0.67 Estim Creat Clear Calc 109.71 Est GFR (MDRD) Af Amer 129 Est GFR (MDRD) Non-Af 107 BUN/Creatinine Ratio 9.0 L Glucose 108 H Calcium 8.3 L Radiography Diagnostic Testing: Clinical Impression(s) from Imaging Studies Abdomen/Pelvis CT 06/10/22 09:28 IMPRESSION: Residual 3.2 cm x 3.6 cm rounded soft tissue density on the right side of the vaginal vault with mild increased markings in the surrounding peritoneal fat. This may represent residual postoperative changes. The previously seen abscess has cleared. Electronically Signed: Christiano Eduardo MD at 11:00 EST , CT was reviewed by me. Report by radiologist was read. Results were reviewed with patient. She was told the cause of her pain is unknown and she will need to follow-up with Dr. Cassidy mejia Discharge Plan Triage Chief Complaint: Abd Pain ED Provider: Sorin Jacobs Dx/Rx/DC Orders Clinical Impression: Pelvic pain, MARCELINO (nonalcoholic steatohepatitis), Abdominal pain, bilateral lower quadrant, Neutropenia, Hx of type 2 diabetes mellitus Instructions: ED Pain, Acute, Uncertain Cause Prescriptions: No Action amlodipine 5 mg tablet 5 mg PO DAILY Qty: 90 1RF hydroxyzine pamoate 50 mg capsule 50 mg PO TID PRN (Reason: anxiety) Qty: 20 0RF meclizine 25 mg tablet 25 mg PO BID PRN (Reason: dizziness) Qty: 30 1RF prochlorperazine maleate [Compazine] 10 mg tablet 10 mg PO BID PRN (Reason: Migraine Symptoms) Qty: 30 1RF levothyroxine 137 mcg tablet 137 mcg PO DAILY Qty: 90 1RF vitamin E mixed 400 unit capsule 800 unit PO .qd ursodiol 300 mg capsule 300 mg PO BID Qty: 180 1RF ketoprofen 75 mg capsule 75 mg PO Q6H PRN (Reason: Migraine Symptoms) Qty: 100 0RF Rx Instructions: 1 cap PO at on set of headache max of 3 in 24 hours, max 20 per month cholecalciferol (vitamin D3) 1,250 mcg (50,000 unit) capsule 1,250 mcg PO QWEEK Qty: 14 1RF Primary Care Provider: Aleena London Referrals: Aleena London MD [Primary Care Provider] - Cassidy Moore MD [Med Staff - Active Staff] - 3-5 Days if not improving Disposition Disposition: Home, Self Care What to do if you have Problems For any increased pain, shortness of breath, bleeding, nausea or vomiting, chestpain, or any unexpected problems, contact your Primary Care Provider. Call [facility] ([phone]) or report to the closest Emergency Room. Call 911 if necessary. 06/10/22 1120 <Electronically signed by Sorin Jacobs MD> Cosigner Signature (if applicable): CC: Dr. Aleena London MD ~ Signed [facility] Work Phone: Discharge summary Author [facility] February 14, 2023 7:59am Note Date/Time February 14, 2023 7:56am [facility] Medical Records Department [address] [place] [address] Instructions for Home/Discharge Instructions 02/14/23 0756 MR#: [id number] Acct: [id number] Name: LANA RIVERA Rep #:[id number] : 1985 37 From: Yusuf Apple DO PCP: Dr. Aleena London MD Status:R EG [facility] [place]charge Instructions Diet Discharge Diet: No restrictions Dressing / Incision Call your doctor if you observe: Shortness of breath and Chest pain Additional Dressing/Incision Instructions:: Ice and elevate operative extremity next 72 hours. Keep dressing on clean and dry for 48 hours then may remove and allow warm soapy water to rinse over incision but do not submerge until sutures are out. Then apply bandaid over incision and change daily. encourage finger range of motion. Not lift more than 1/2 pound. Minimize narcotic use only as needed and directed, may use OTC NSAID and Tylenol to supplement/substitute for pain control. Follow Up Care Please Follow Up With: Yusuf Apple DO When: 2 weeks Test Results: Test results from this visit will be discussed in further detail at your follow- up appointment, if applicable. Discharge Plan Admission Primary Reason for Your Visit: Right carpal tunnel release Attending Provider: Yusuf Apple Primary Care Provider: Aleena London Discharge Orders/Prescriptions Prescriptions: New oxycodone 5 mg tablet 2.5 - 5 mg PO Q4H PRN (Reason: pain) 5 Days Qty: 10 0RF Continued hydroxyzine pamoate 50 mg capsule 50 mg PO TID PRN (Reason: anxiety) Qty: 20 0RF meclizine 25 mg tablet 25 mg PO BID PRN (Reason: dizziness) Qty: 30 1RF ursodiol 300 mg capsule 300 mg PO BID Qty: 180 1RF hydrocortisone 2.5 % cream with perineal applicator 1 applic MS QD-BID PRN (Reason: itching) Qty: 30 2RF vitamin E mixed 400 unit capsule 800 unit PO .qd mupirocin 2 % ointment 1 applic topical BID Qty: 15 0RF albuterol sulfate 2.5 mg /3 mL (0.083 %) solution for nebulization 2.5 mg inhalation Q6H PRN (Reason: shortness of breath or wheezing) Qty: 90 1RF ketoprofen 75 mg capsule 75 mg PO Q6H PRN (Reason: Migraine Symptoms) Qty: 100 0RF Rx Instructions: 1 cap PO at on set of headache max of 3 in 24 hours, max 20 per month amlodipine 5 mg tablet 5 mg PO DAILY Qty: 90 1RF prochlorperazine maleate [Compazine] 10 mg tablet 10 mg PO BID PRN (Reason: Migraine Symptoms) Qty: 30 1RF levothyroxine 137 mcg tablet 137 mcg PO DAILY Qty: 90 1RF No Action oxycodone-acetaminophen [Percocet] 5-325 mg tablet 1 tab PO Q8H PRN (Reason: pain) 3 Days Qty: 10 0RF Referrals / Follow Up: Aleena London MD [Primary Care Provider] - Disposition Disposition (needs filled in before D/C Order can be placed): Home, Self Care 02/14/23 0759<Electronically signed by Yusuf Apple DO>Yusuf Apple DO CC: Dr. Aleena London MD ~ Signed [facility] Work Phone: Discharge summary Author Ry Enamorado [facility] May 04, 2023 1:14pm Note Date/Time May 04, 2023 1:06pm [facility] Medical Records Department [address] [place] [address] Emergency Department Summary 05/04/23 MR#: [id number] Acct: [id number] Name: LANA RIVERA Rep #:[id number] : 1985 38 From: Ry Enamorado MD PCP: Dr. Aleena London MD Status:R EG ER Location: ED HPI History of Present Illness Chief Complaint: Eye Problem Informant: patient Onset/Context/Timing Location: Right Eye Onset: Days Context: Gradual Onset Timing: Continuous Current Severity: Mild Associated Symptoms Associated Symptoms - Eyes: Redness; Negative for Burning, Crusting, Drainage, Eyelid swelling, Matting or Photophobia History of injury: No Visual correction: Glasses Narrative Narrative: 38-year-old female is supposed to wear glasses. No contacts. 3 days ago noticed redness to the sclera of her right eye. Saw her transfer driver at [facility] told her it was a subconjunctival hemorrhage. And she was told to be reevaluated. She is on no blood thinners. Prior similar symptoms: No Recent Illness/Hospitalization: No PFSH PFSH Medical History Abdominal pain ADHD (attention deficit hyperactivity disorder), combined type Anxiety and depression Arthritis Back pain Bronchitis Cancer Cardiology follow-up encounter Cervical lymphadenopathy Cervical radiculopathy Chronic back pain Chronic pain Chronic RUQ pain Contact with or exposure to other viral diseases Depression Dermatitis Easy bruising Ectopic cardiac beats Fatty liver Fibromyalgia NICOLÁS (generalized anxiety disorder) Almaz's thyroiditis Heartburn History of acne History of echocardiogram History of gestational diabetes History of pain when walking History of stress test History of ulceration Hypertension Hypocalcemia Injury of head and neck Left shoulder pain Left-sided low back pain with left-sided sciatica Leg cramps Localized swelling, mass and lump, neck Melanoma Migraine without aura and with status migrainosus, not intractable Morbid obesity MARCELINO (nonalcoholic steatohepatitis) Numbness and tingling of both upper extremities Numbness of both lower extremities Palpitations PONV (postoperative nausea and vomiting) Post herpetic neuralgia Restless legs Right femoral fracture RUQ abdominal pain Syncope Thyroid disease Tinnitus Tobacco abuse Vertigo Home Medications vitamin E mixed 400 unit capsule 800 unit PO .qd supplement 04/12/22 [History Last Taken Unknown] hydroxyzine pamoate 50 mg capsule 50 mg PO TID PRN anxiety #20 caps 05/30/22 [Rx Last Taken Unknown] meclizine 25 mg tablet 25 mg PO BID PRN dizziness #30 tabs 05/30/22 [Rx Last Taken Unknown] albuterol sulfate 2.5 mg/3 mL (0.083 %) solution for nebulization 2.5 mg (3 mL) inhalation Q6H PRN shortness of breath or wheezing #90 mL 06/27/22 [Rx Last Taken Unknown] ketoprofen 75 mg capsule 75 mg PO Q6H PRN Migraine Symptoms #100 caps 11/14/22 [Rx Last Taken Unknown] amlodipine 5 mg tablet 5 mg PO DAILY bp #90 tabs 12/15/22 [Rx Last Taken 02/14/23] levothyroxine 137 mcg tablet 137 mcg PO DAILY synthroid #90 tabs 02/13/23 [Rx Last Taken 02/14/23] prochlorperazine maleate 10 mg tablet (Compazine) 10 mg PO BID PRN Migraine Symptoms #30 tabs 02/22/23 [Rx Last Taken Unknown] ursodiol 300 mg capsule 300 mg PO BID #180 caps 02/22/23 [Rx Last Taken Unknown] colestipol 1 gram tablet 1 g PO BID #60 tabs 04/10/23 [Rx Last Taken Unknown] compress.stocking,knee,reg,lrg #2 ea 04/19/23 [Rx Last Taken Unknown] Allergy/AdvReac Type Severity Reaction Status Date / Time latex Allergy Itching Verified 05/04/23 12:19 naproxen Allergy Unknown Verified 05/04/23 12:19 Penicillins [PCN] Allergy Rash Verified 05/04/23 12:19 escitalopram [From Lexapro] AdvReac Intermediate Lightheaded Verified 05/04/23 12:19 sertraline [From Zoloft] AdvReac Intermediate Dizzy & Verified 05/04/23 12:19 Headache dicyclomine [From Bentyl] AdvReac Unknown Unknown Verified 05/04/23 12:19 hydrocodone [From Vicodin] AdvReac Other Verified 05/04/23 12:19 ketorolac [From Toradol] AdvReac Other Verified 05/04/23 12:19 Family History Grandmother Diabetes Other Family history of skin cancer High cholesterol Hypertension Surgical History History of carpal tunnel surgery of right wrist History of surgery on arm History of surgery on lower extremity History of thyroidectomy History of total vaginal hysterectomy (TVH) (~03/22/22) Status post incision and drainage (~04/15/22) Social History Smoking Status: Current every day smoker tobacco type: cigarettes Tobacco: How many years used: 13 Electronic Cigarette Use: not used second hand exposure: No alcohol intake: current alcohol intake frequency: holidays/special occasions only substance use type: does not use caffeine: Yes what type of physical activity do you participate in: none seatbelt use: always do you feel safe at home: Yes additional social history: [employer] ED ROS Narrative Denies recent illness. Review of Systems ROS Unobtainable: Denies due to encephalopathy Constitutional Constitutional ED: Denies chills or fever(s) Eyes Eyes: Denies blurry vision ENT ENT ED: Denies ear pain Cardiovascular Cardiovascular: Denies chest pain or palpitations Respiratory/Chest Respiratory/Chest: Denies cough or dyspnea Gastrointestinal Gastrointestinal: Denies abdominal pain Genitourinary Genitourinary ED: Denies dysuria Musculoskeletal Musculoskeletal: Denies arthralgias Integumentary Denies abscess Neurologic Neurologic: Denies headache(s) Psychiatric Psychiatric: Denies anxiety Endocrine Endocrinology: Denies polydipsia Hematologic/Lymphatic Hematologic/Lymphatic: Denies easy bleeding, easy bruising or lymphadenopathy Allergic/Immunologic Allergic/Immunologic ED: Denies mouth swelling, tongue swelling or urticaria EXAM Physical Exam Narrative Exam Narrative: Well-appearing 38-year-old female. Vital signs are stable blood pressure is elevated 126/113 history of chronic hypertension. H EENT exam pupils round reactive Lesch motions are intact. 2 very small subconjunctival hemorrhages right eye sclera. Otherwise unremarkable. No swelling. No proptosis. Extraocular motions intact. No vision change. Lungs clear. Heart regular rhythm. Otherwise exam normal. Neurologic exam normal. NIH 0. Const Vital Signs: 05/04/23 12:19 Temperature 98.3 F Temperature Source Temporal Pulse Rate 95 Respiratory Rate 14 Blood Pressure 126/113 H Blood Pressure Mean 117 Pulse Ox 100 Oxygen Delivery Method Room Air Positive well nourished and well developed; Negative for cachectic, contracturesor unkempt General Appearance ED: well developed and NAD; Negative for unkempt, cachectic or contractures Nutritional Appearance: Negative for cachectic HEENT atraumatic; Negative for trauma or tenderness Eyes Eyes Narrative: Pupils equal and round reactive to light bilaterally. Extraocular motions intact. 2 small subconjunctival hemorrhages right lateral sclera. Neck no lymphadenopathy, supple and no JVD General: Negative for tenderness Resp normal respiratory effort, no retractions, no use of accessory muscles and clearto auscultation bilaterally Cardio regular rate, regular rhythm, S1 normal heart sound, S2 normal heart sound and no murmurs Jugular Venous Distention: Negative for other GI non-tender, non-distended and no masses Inspection: Negative for other Auscultation: normoactive bowel sounds Palpation: soft Back/Spine no CVA tenderness General Back: Negative for CVA tenderness Extremity normal to inspection General Extremety ED: Negative for edema General Extremity: Negative for edema Neuro oriented x3, CN's II-XII intact bilaterally, moves all extremities and no sensory deficits noted Sensorium / Orientation: alert, oriented to person, oriented to place and oriented to time; Negative for orientation impaired Motor Exam: strength 5/5 throughout Psych Appearance: Negative for unkempt Attitude: No agitated Mood & Affect: Negative for depressed, anxious or tearful Skin no wounds Lesions: no lesions Rashes: no rashes Trauma: Negative for abrasion MDM MDM MDM Narrative Medical decision making narrative: 38-year-old with small subconjunctival hemorrhage on the right. Does not need any labs or imaging. I discussed this with her. History & Record Review Discussion w/independent historian: Patient Additional record(s) reviewed:: Prior inpatient record, Prior outpatient record,Prior ED visit and Prior labs Discharge Plan Triage Chief Complaint: Eye Problem ED Provider: Ry Enamorado Dx/Rx/DC Orders Clinical Impression: Non-traumatic subconjunctival hemorrhage of right eye, Chronic hypertension Instructions: ED Subconjunctival Hemorrhage Prescriptions: No Action hydroxyzine pamoate 50 mg capsule 50 mg PO TID PRN (Reason: anxiety) Qty: 20 0RF meclizine 25 mg tablet 25 mg PO BID PRN (Reason: dizziness) Qty: 30 1RF (DME) compress.stocking,knee,reg,lrg Misc See Rx Instructions .MEDSUPPLY Qty: 2 1RF Rx Instructions: wear daily for venous insufficiency 20-30 mmHg vitamin E mixed 400 unit capsule 800 unit PO .qd albuterol sulfate 2.5 mg /3 mL (0.083 %) solution for nebulization 2.5 mg inhalation Q6H PRN (Reason: shortness of breath or wheezing) Qty: 90 1RF ketoprofen 75 mg capsule 75 mg PO Q6H PRN (Reason: Migraine Symptoms) Qty: 100 0RF Rx Instructions: 1 cap PO at on set of headache max of 3 in 24 hours, max 20 per month amlodipine 5 mg tablet 5 mg PO DAILY Qty: 90 1RF levothyroxine 137 mcg tablet 137 mcg PO DAILY Qty: 90 1RF prochlorperazine maleate [Compazine] 10 mg tablet 10 mg PO BID PRN (Reason: Migraine Symptoms) Qty: 30 1RF ursodiol 300 mg capsule 300 mg PO BID Qty: 180 1RF colestipol 1 gram tablet 1 g PO BID Qty: 60 2RF Primary Care Provider: Aleena London Referrals: Aleena London MD [Primary Care Provider] - As Needed Activity Restrictions/Additional Instructions: This should improve over the next week. Disposition Disposition: Home, Self Care What to do if you have Problems For any increased pain, shortness of breath, bleeding, nausea or vomiting, chestpain, or any unexpected problems, contact your Primary Care Provider. Call [facility] ([phone]) or report to the closest Emergency Room. Call 911 if necessary. 05/04/23 1314 <Electronically signed by Ry Enamorado MD> Cosigner Signature (if applicable): CC: Dr. Aleena London MD ~ Signed [facility] Work Phone: Evaluation + Plan note No data available for this section [facility] Evaluation note* Diagnosis Onset Date Resolution Status Mass of lower lobe of lung a cute Obesity acute Cough acute ADHD chronic 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 Tobacco abuse chronic RUQ abdominal pain acute ADHD acute Smoker chronic MARCELINO (nonalcoholic steatohepatitis) acute RUQ abdominal pain acute Anxiety acute Chest pain acute Ectopic cardiac beats acute Essential hypertension acute Obesity acute Palpitations acute Abscess of right thigh acute Menorrhagia with irregular cycle acute Personal history of malignant melanoma chronic Tobacco abuse chronic Hepatosplenomegaly acute RUQ abdominal pain acute Tinnitus acute Vertigo acute [facility] Work Phone: Evaluation note* Diagnosis Onset Date Resolution Status ADHD chronic 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 Tobacco abuse chronic RUQ abdominal pain acute ADHD acute Smoker chronic MARCELINO (nonalcoholic steatohepatitis) acute RUQ abdominal pain acute Anxiety acute Chest pain acute Ectopic cardiac beats acute Essential hypertension acute Obesity acute Palpitations acute Abscess of right thigh acute Menorrhagia with irregular cycle acute Personal history of malignant melanoma chronic Tobacco abuse chronic Hepatosplenomegaly acute RUQ abdominal pain acute Tinnitus acute Vertigo acute Acute bronchitis acute Menorrhagia with irregular cycle acute Heartburn acute Hematochezia acute MARCELINO (nonalcoholic steatohepatitis) acute Chronic RUQ pain chronic [facility] Work Phone: Evaluation note* Diagnosis Onset Date Resolution Status ADHD acute Smoker chronic MARCELINO (nonalcoholic steatohepatitis) acute RUQ abdominal pain acute Anxiety acute Chest pain acute Ectopic cardiac beats acute Essential hypertension acute Obesity acute Palpitations acute Abscess of right thigh acute Menorrhagia with irregular cycle acute Personal history of malignant melanoma chronic Tobacco abuse chronic Hepatosplenomegaly acute RUQ abdominal pain acute Tinnitus acute Vertigo acute Acute bronchitis acute Menorrhagia with irregular cycle acute Heartburn acute Hematochezia acute MARCELINO (nonalcoholic steatohepatitis) acute Chronic RUQ pain chronic Anxiety acute Chest pain acute Ectopic cardiac beats acute Essential hypertension acute Obesity acute Palpitations acute Menorrhagia with irregular cycle acute [facility] Work Phone: Evaluation note* Diagnosis Onset Date Resolution Status ADHD acute Smoker chronic MARCELINO (nonalcoholic steatohepatitis) acute RUQ abdominal pain acute Anxiety acute Chest pain acute Ectopic cardiac beats acute Essential hypertension acute Obesity acute Palpitations acute Abscess of right thigh acute Menorrhagia with irregular cycle acute Personal history of malignant melanoma chronic Tobacco abuse chronic Hepatosplenomegaly acute RUQ abdominal pain acute Tinnitus acute Vertigo acute Acute bronchitis acute Menorrhagia with irregular cycle acute Heartburn acute Hematochezia acute MARCELINO (nonalcoholic steatohepatitis) acute Chronic RUQ pain chronic Anxiety acute Chest pain acute Ectopic cardiac beats acute Essential hypertension acute Obesity acute Palpitations acute Menorrhagia with irregular cycle acute Acute bronchitis, unspecified acute Acute sinusitis, unspecified acute Acute bronchitis, unspecified acute Essential hypertension acute 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 [facility] Work Phone: Evaluation note* Diagnosis Onset Date Resolution Status Anxiety acute Chest pain acute Ectopic cardiac beats acute Essential hypertension acute Obesity acute Palpitations acute Abscess of right thigh acute Menorrhagia with irregular cycle acute Personal history of malignant melanoma chronic Tobacco abuse chronic Hepatosplenomegaly acute RUQ abdominal pain acute Tinnitus acute Vertigo acute Acute bronchitis acute Menorrhagia with irregular cycle acute Heartburn acute Hematochezia acute MARCELINO (nonalcoholic steatohepatitis) acute Chronic RUQ pain chronic Anxiety acute Chest pain acute Ectopic cardiac beats acute Essential hypertension acute Obesity acute Palpitations acute Menorrhagia with irregular cycle acute Acute bronchitis, unspecified acute Acute sinusitis, unspecified acute Acute bronchitis, unspecified acute Essential hypertension acute 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 Irritant contact dermatitis due to plant acute [facility] Work Phone: Evaluation note* Diagnosis Onset Date Resolution Status Menorrhagia with irregular cycle acute Personal history of malignant melanoma chronic Tobacco abuse chronic Encounter for routine gynecological examination noneactive Hepatosplenomegaly acute RUQ abdominal pain acute Tinnitus acute Vertigo acute Acute bronchitis acute Menorrhagia with irregular cycle acute Heartburn acute Hematochezia acute MARCELINO (nonalcoholic steatohepatitis) acute Chronic RUQ pain chronic Ear pressure noneactive Cerumen impaction noneactive Anxiety acute Chest pain acute Ectopic cardiac beats acute Essential hypertension acute Obesity acute Palpitations acute Menorrhagia with irregular cycle acute Acute bronchitis, unspecified acute Acute sinusitis, unspecified acute Acute bronchitis, unspecified acute Essential hypertension acute 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 Irritant contact dermatitis due to plant acute Urticaria noneactive Cervical lymphadenopathy acu te Fatigue chronic Left leg paresthesias chroni c Low back pain chronic Numbness and tingling of both upper extremities chronic Vitamin d deficiency chronic [facility] Work Phone: Evaluation note* Diagnosis Onset Date Resolution Status Acute bronchitis acute Menorrhagia with irregular cycle acute Heartburn acute Hematochezia acute MARCELINO (nonalcoholic steatohepatitis) acute Chronic RUQ pain chronic Ear pressure noneactive Cerumen impaction noneactive Anxiety acute Chest pain acute Ectopic cardiac beats acute Essential hypertension acute Obesity acute Palpitations acute Menorrhagia with irregular cycle acute Acute bronchitis, unspecified acute Acute sinusitis, unspecified acute Acute bronchitis, unspecified acute Essential hypertension acute 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 Irritant contact dermatitis due to plant acute Urticaria noneactive Cervical lymphadenopathy acu te Fatigue chronic Left leg paresthesias chroni c Low back pain chronic Numbness and tingling of both upper extremities chronic Vitamin d deficiency chronic Menorrhagia with irregular cycle acute [facility] Work Phone: Evaluation note* Diagnosis Onset Date Resolution Status Heartburn acute Hematochezia acute MARCELINO (nonalcoholic steatohepatitis) acute Chronic RUQ pain chronic Ear pressure noneactive Cerumen impaction noneactive Anxiety acute Chest pain acute Ectopic cardiac beats acute Essential hypertension acute Obesity acute Palpitations acute Menorrhagia with irregular cycle acute Acute bronchitis, unspecified acute Acute sinusitis, unspecified acute Acute bronchitis, unspecified acute Essential hypertension acute 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 Irritant contact dermatitis due to plant acute Urticaria noneactive Cervical lymphadenopathy acu te Fatigue chronic Left leg paresthesias chroni c Low back pain chronic Numbness and tingling of both upper extremities chronic Vitamin d deficiency chronic Menorrhagia with irregular cycle acute Early satiety acute MARCELINO (nonalcoholic steatohepatitis) acute Chronic RUQ pain chronic [facility] Work Phone: Evaluation note* Diagnosis Onset Date Resolution Status Ear pressure noneactive Cerumen impaction noneactive Anxiety acute Chest pain acute Ectopic cardiac beats acute Essential hypertension acute Obesity acute Palpitations acute Menorrhagia with irregular cycle acute Acute bronchitis, unspecified acute Acute sinusitis, unspecified acute Acute bronchitis, unspecified acute Essential hypertension acute 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 Irritant contact dermatitis due to plant acute Urticaria noneactive Cervical lymphadenopathy acu te Fatigue chronic Left leg paresthesias chroni c Low back pain chronic Numbness and tingling of both upper extremities chronic Vitamin d deficiency chronic Menorrhagia with irregular cycle acute Early satiety acute MARCELINO (nonalcoholic steatohepatitis) acute Chronic RUQ pain chronic [facility] Work Phone: Evaluation note* Diagnosis Onset Date Resolution Status Urticaria noneactive Cervical lymphadenopathy acu te Left leg paresthesias chroni c Low back pain chronic Vitamin d deficiency chronic Fatigue resolved Numbness and tingling of both upper extremities resolved Menorrhagia with irregular cycle acute Early satiety acute AMRCELINO (nonalcoholic steatohepatitis) acute Chronic RUQ pain resolved Essential hypertension chron ic Localized swelling, mass and lump, neck resolved Obesity resolved Type 2 diabetes mellitus res olved Menorrhagia with irregular cycle acute Almaz's thyroiditis reference data expert sarai Metabolic syndrome chronic NAFLD (nonalcoholic fatty liver disease) acute Obesity acute Fibromyalgia affecting multiple sites acute Meralgia paresthetica of left side acute Sciatica, right side acute Strain of lumbar region acut e Low back pain chronic [facility] Work Phone: Evaluation note* Diagnosis Onset Date Resolution Status Cervical lymphadenopathy acu te Left leg paresthesias chroni c Low back pain chronic Vitamin d deficiency chronic Fatigue resolved Numbness and tingling of both upper extremities resolved Menorrhagia with irregular cycle acute Early satiety acute MARCELINO (nonalcoholic steatohepatitis) acute Chronic RUQ pain resolved Essential hypertension chron ic Localized swelling, mass and lump, neck resolved Obesity resolved Type 2 diabetes mellitus res olved Menorrhagia with irregular cycle acute Almaz's thyroiditis reference data expert sarai Metabolic syndrome chronic NAFLD (nonalcoholic fatty liver disease) acute Obesity acute Fibromyalgia affecting multiple sites acute Meralgia paresthetica of left side acute Sciatica, right side acute Strain of lumbar region acut e Low back pain chronic Chronic low back pain noneac tive Fibromyalgia noneactive [facility] Work Phone: Evaluation note* Diagnosis Onset Date Resolution Status Menorrhagia with irregular cycle acute Early satiety acute MARCELINO (nonalcoholic steatohepatitis) acute Chronic RUQ pain resolved Type 2 diabetes mellitus acu te Essential hypertension chron ic Localized swelling, mass and lump, neck resolved Obesity resolved Menorrhagia with irregular cycle acute Almaz's thyroiditis reference data expert sarai Metabolic syndrome chronic NAFLD (nonalcoholic fatty liver disease) acute Obesity acute Fibromyalgia affecting multiple sites acute Meralgia paresthetica of left side acute Sciatica, right side acute Strain of lumbar region acut e Low back pain chronic Chronic low back pain noneac tive Fibromyalgia noneactive Menorrhagia with irregular cycle acute S/P vaginal hysterectomy acu te Type 2 diabetes mellitus acu te Hypertension chronic Metabolic syndrome chronic PCOS (polycystic ovarian syndrome) chronic [facility] Work Phone: Evaluation note* Diagnosis Onset Date Resolution Status Menorrhagia with irregular cycle acute Early satiety acute MARCELINO (nonalcoholic steatohepatitis) acute Chronic RUQ pain resolved Type 2 diabetes mellitus acu te Essential hypertension chron ic Localized swelling, mass and lump, neck resolved Obesity resolved Menorrhagia with irregular cycle acute Almaz's thyroiditis reference data expert sarai Metabolic syndrome chronic NAFLD (nonalcoholic fatty liver disease) acute Obesity acute Fibromyalgia affecting multiple sites acute Meralgia paresthetica of left side acute Sciatica, right side acute Strain of lumbar region acut e Low back pain chronic Chronic low back pain noneac tive Fibromyalgia noneactive Menorrhagia with irregular cycle acute S/P vaginal hysterectomy acu te Type 2 diabetes mellitus acu te Hypertension chronic Metabolic syndrome chronic PCOS (polycystic ovarian syndrome) chronic Postoperative pain acute Postoperative pain acute Urinary hesitancy acute [facility] Work Phone: Evaluation note* Diagnosis Onset Date Resolution Status Menorrhagia with irregular cycle acute Early satiety acute MARCELINO (nonalcoholic steatohepatitis) acute Chronic RUQ pain resolved Type 2 diabetes mellitus acu te Essential hypertension chron ic Localized swelling, mass and lump, neck resolved Obesity resolved Menorrhagia with irregular cycle acute Almaz's thyroiditis reference data expert sarai Metabolic syndrome chronic NAFLD (nonalcoholic fatty liver disease) acute Obesity acute Fibromyalgia affecting multiple sites acute Meralgia paresthetica of left side acute Sciatica, right side acute Strain of lumbar region acut e Low back pain chronic Chronic low back pain noneac tive Fibromyalgia noneactive Menorrhagia with irregular cycle acute S/P vaginal hysterectomy acu te Type 2 diabetes mellitus acu te Hypertension chronic Metabolic syndrome chronic PCOS (polycystic ovarian syndrome) chronic Postoperative pain acute Postoperative pain acute Urinary hesitancy acute Abdominal pain acute Chest pain acute Class II obesity acute History of hypertension acut e MARCELINO (nonalcoholic steatohepatitis) acute Postoperative abscess acute Postoperative pain acute Type 2 diabetes mellitus acu te Chronic back pain chronic Hypertension chronic Tobacco abuse chronic [facility] Work Phone: Evaluation note* Diagnosis Onset Date Resolution Status Early satiety acute MARCELINO (nonalcoholic steatohepatitis) acute Chronic RUQ pain resolved Type 2 diabetes mellitus acu te Localized swelling, mass and lump, neck resolved Obesity resolved Almaz's thyroiditis reference data expert sarai Metabolic syndrome chronic Menorrhagia with irregular cycle resolved NAFLD (nonalcoholic fatty liver disease) acute Fibromyalgia affecting multiple sites acute Meralgia paresthetica of left side acute Sciatica, right side acute Strain of lumbar region acut e Low back pain chronic Chronic low back pain noneac tive Fibromyalgia noneactive S/P vaginal hysterectomy acu te Type 2 diabetes mellitus acu te Hypertension chronic Metabolic syndrome chronic PCOS (polycystic ovarian syndrome) chronic Menorrhagia with irregular cycle resolved Postoperative pain acute Postoperative pain acute Urinary hesitancy resolved Class II obesity acute Fibromyalgia affecting multiple sites acute MARCELINO (nonalcoholic steatohepatitis) acute Postoperative abscess acute Postoperative pain acute S/P vaginal hysterectomy acu te Sciatica, right side acute Type 2 diabetes mellitus acu te Chronic back pain chronic 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 Almaz's thyroiditis reference data expert sarai Hypertension chronic Metabolic syndrome chronic PCOS (polycystic ovarian syndrome) chronic Personal history of malignant melanoma chronic Tobacco abuse chronic Abdominal pain resolved Chest pain resolved History of hypertension reso lved [facility] Work Phone: Evaluation note* Diagnosis Onset Date Resolution Status Type 2 diabetes mellitus acu te Localized swelling, mass and lump, neck resolved Obesity resolved Almaz's thyroiditis reference data expert sarai Metabolic syndrome chronic Menorrhagia with irregular cycle resolved NAFLD (nonalcoholic fatty liver disease) acute Fibromyalgia affecting multiple sites acute Meralgia paresthetica of left side acute Sciatica, right side acute Strain of lumbar region acut e Low back pain chronic Chronic low back pain noneac tive Fibromyalgia noneactive S/P vaginal hysterectomy acu te Type 2 diabetes mellitus acu te Hypertension chronic Metabolic syndrome chronic PCOS (polycystic ovarian syndrome) chronic Menorrhagia with irregular cycle resolved Postoperative pain acute Postoperative pain acute Urinary hesitancy resolved Class II obesity acute Fibromyalgia affecting multiple sites acute MARCELINO (nonalcoholic steatohepatitis) acute Postoperative abscess acute Postoperative pain acute S/P vaginal hysterectomy acu te Sciatica, right side acute Type 2 diabetes mellitus acu te Chronic back pain chronic 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 Almaz's thyroiditis reference data expert sarai Hypertension chronic Metabolic syndrome chronic PCOS (polycystic ovarian syndrome) chronic Personal history of malignant melanoma chronic Tobacco abuse chronic Abdominal pain resolved Chest pain resolved History of hypertension reso lved Postoperative abscess acute Postoperative abscess acute Postoperative pain acute S/P vaginal hysterectomy acu te [facility] Work Phone: Evaluation note* Diagnosis Onset Date Resolution Status Almaz's thyroiditis reference data expert sarai Metabolic syndrome chronic Menorrhagia with irregular cycle resolved NAFLD (nonalcoholic fatty liver disease) acute Fibromyalgia affecting multiple sites acute Meralgia paresthetica of left side acute Sciatica, right side acute Strain of lumbar region acut e Low back pain chronic Chronic low back pain noneac tive Fibromyalgia noneactive S/P vaginal hysterectomy acu te Type 2 diabetes mellitus acu te Hypertension chronic Metabolic syndrome chronic PCOS (polycystic ovarian syndrome) chronic Menorrhagia with irregular cycle resolved Postoperative pain acute Postoperative pain acute Urinary hesitancy resolved Class II obesity acute Fibromyalgia affecting multiple sites acute MARCELINO (nonalcoholic steatohepatitis) acute Postoperative abscess acute Postoperative pain acute S/P vaginal hysterectomy acu te Sciatica, right side acute Type 2 diabetes mellitus acu te Chronic back pain chronic 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 Almaz's thyroiditis reference data expert sarai Hypertension chronic Metabolic syndrome chronic PCOS (polycystic ovarian syndrome) chronic Personal history of malignant melanoma chronic Tobacco abuse chronic Abdominal pain resolved Chest pain resolved History of hypertension reso lved Postoperative abscess acute Postoperative abscess acute Postoperative pain acute S/P vaginal hysterectomy acu te Nicotine dependence, cigarettes, uncomplicated resolved Ovarian cyst acute Postoperative abscess acute Postoperative pain acute Almaz's thyroiditis reference data expert sarai Hypertension chronic Vitamin d deficiency chronic Fatigue noneactive Varicose vein of leg noneact jimmie [facility] Work Phone: Evaluation note* Diagnosis Onset Date Resolution Status S/P vaginal hysterectomy acu te Type 2 diabetes mellitus acu te Hypertension chronic Metabolic syndrome chronic PCOS (polycystic ovarian syndrome) chronic Menorrhagia with irregular cycle resolved Postoperative pain acute Postoperative pain acute Urinary hesitancy resolved Class II obesity acute Fibromyalgia affecting multiple sites acute MARCELINO (nonalcoholic steatohepatitis) acute Postoperative abscess acute Postoperative pain acute S/P vaginal hysterectomy acu te Sciatica, right side acute Type 2 diabetes mellitus acu te Chronic back pain chronic 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 Almaz's thyroiditis reference data expert sarai Hypertension chronic Metabolic syndrome chronic PCOS (polycystic ovarian syndrome) chronic Personal history of malignant melanoma chronic Tobacco abuse chronic Abdominal pain resolved Chest pain resolved History of hypertension reso lved Postoperative abscess acute Postoperative abscess acute Postoperative pain acute S/P vaginal hysterectomy acu te Nicotine dependence, cigarettes, uncomplicated resolved Ovarian cyst acute Postoperative abscess acute Postoperative pain acute Almaz's thyroiditis reference data expert sarai Hypertension chronic Vitamin d deficiency chronic Fatigue noneactive Varicose vein of leg noneact jimmie Ovarian cyst acute Acute bronchitis noneactive [facility] Work Phone: Evaluation note* Diagnosis Onset Date Resolution Status S/P vaginal hysterectomy acu te Type 2 diabetes mellitus acu te Hypertension chronic Metabolic syndrome chronic PCOS (polycystic ovarian syndrome) chronic Menorrhagia with irregular cycle resolved Postoperative pain acute Postoperative pain acute Urinary hesitancy resolved Class II obesity acute Fibromyalgia affecting multiple sites acute MARCELINO (nonalcoholic steatohepatitis) acute Postoperative abscess acute Postoperative pain acute S/P vaginal hysterectomy acu te Sciatica, right side acute Type 2 diabetes mellitus acu te Chronic back pain chronic 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 Almaz's thyroiditis reference data expert sarai Hypertension chronic Metabolic syndrome chronic PCOS (polycystic ovarian syndrome) chronic Personal history of malignant melanoma chronic Tobacco abuse chronic Abdominal pain resolved Chest pain resolved History of hypertension reso lved Postoperative abscess acute Postoperative abscess acute Postoperative pain acute S/P vaginal hysterectomy acu te Nicotine dependence, cigarettes, uncomplicated resolved Ovarian cyst acute Postoperative abscess acute Postoperative pain acute Almaz's thyroiditis reference data expert sarai Hypertension chronic Vitamin d deficiency chronic Fatigue noneactive Varicose vein of leg noneact jimmie Ovarian cyst acute Acute bronchitis noneactive NAFLD (nonalcoholic fatty liver disease) chronic RUQ abdominal pain chronic [facility] Work Phone: Evaluation note* Diagnosis Onset Date Resolution Status Postoperative pain acute Urinary hesitancy resolved Class II obesity acute Fibromyalgia affecting multiple sites acute MARCELINO (nonalcoholic steatohepatitis) acute Postoperative abscess acute Postoperative pain acute S/P vaginal hysterectomy acu te Sciatica, right side acute Type 2 diabetes mellitus acu te Chronic back pain chronic 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 Almaz's thyroiditis reference data expert sarai Hypertension chronic Metabolic syndrome chronic PCOS (polycystic ovarian syndrome) chronic Personal history of malignant melanoma chronic Tobacco abuse chronic Abdominal pain resolved Chest pain resolved History of hypertension reso lved Postoperative abscess acute Postoperative abscess acute Postoperative pain acute S/P vaginal hysterectomy acu te Nicotine dependence, cigarettes, uncomplicated resolved Ovarian cyst acute Postoperative abscess acute Postoperative pain acute Almaz's thyroiditis reference data expert sarai Hypertension chronic Vitamin d deficiency chronic Fatigue noneactive Varicose vein of leg noneact jimmie Ovarian cyst acute Acute bronchitis noneactive NAFLD (nonalcoholic fatty liver disease) chronic RUQ abdominal pain chronic [facility] Work Phone: Evaluation note* Diagnosis Onset Date Resolution Status Ovarian cyst acute Acute bronchitis noneactive NAFLD (nonalcoholic fatty liver disease) chronic RUQ abdominal pain chronic Pectoralis muscle strain non eactive Cough acute Anxiety and depression chron ic Hypertension chronic Left shoulder pain chronic Left shoulder pain chronic [facility] Work Phone: Evaluation note* Diagnosis Onset Date Resolution Status NAFLD (nonalcoholic fatty liver disease) chronic RUQ abdominal pain chronic Pectoralis muscle strain non eactive Cough acute Anxiety and depression chron ic Hypertension chronic Left shoulder pain chronic Left shoulder pain chronic Carpal tunnel syndrome of right wrist noneactive [facility] Work Phone: Evaluation note* Diagnosis Onset Date Resolution Status Pectoralis muscle strain non eactive Cough acute Anxiety and depression chron ic Hypertension chronic Left shoulder pain chronic Left shoulder pain chronic Carpal tunnel syndrome of right wrist noneactive Carpal tunnel syndrome of right wrist noneactive [facility] Work Phone: Evaluation note* Diagnosis Onset Date Resolution Status Pectoralis muscle strain non eactive Cough acute Anxiety and depression chron ic Hypertension chronic Left shoulder pain chronic Left shoulder pain chronic Carpal tunnel syndrome of right wrist noneactive Carpal tunnel syndrome of right wrist noneactive NAFLD (nonalcoholic fatty liver disease) chronic RUQ abdominal pain chronic [facility] Work Phone: Evaluation note* Diagnosis Onset Date Resolution Status Cough acute Anxiety and depression chron ic Hypertension chronic Left shoulder pain chronic Left shoulder pain chronic Carpal tunnel syndrome of right wrist noneactive Carpal tunnel syndrome of right wrist noneactive NAFLD (nonalcoholic fatty liver disease) chronic RUQ abdominal pain chronic Hemorrhagic ovarian cyst acu te Pelvic pain acute PCOS (polycystic ovarian syndrome) chronic Inclusion cyst of vulva acut e Possible exposure to STD non eactive [facility] Work Phone: Evaluation note* Diagnosis Onset Date Resolution Status Anxiety and depression chron ic Hypertension chronic Left shoulder pain chronic Left shoulder pain chronic Carpal tunnel syndrome of right wrist noneactive Carpal tunnel syndrome of right wrist noneactive NAFLD (nonalcoholic fatty liver disease) chronic RUQ abdominal pain chronic Hemorrhagic ovarian cyst acu te Pelvic pain acute PCOS (polycystic ovarian syndrome) chronic Inclusion cyst of vulva acut e Possible exposure to STD non eactive [facility] Work Phone: Evaluation note* Diagnosis Onset Date Resolution Status Carpal tunnel syndrome of right wrist noneactive Carpal tunnel syndrome of right wrist noneactive NAFLD (nonalcoholic fatty liver disease) chronic RUQ abdominal pain chronic Hemorrhagic ovarian cyst acu te Pelvic pain acute PCOS (polycystic ovarian syndrome) chronic Inclusion cyst of vulva acut e Possible exposure to STD non eactive Dermatitis acute Anxiety and depression chron ic Hypertension chronic [facility] Work Phone: Evaluation note* Diagnosis Onset Date Resolution Status Carpal tunnel syndrome of right wrist noneactive Carpal tunnel syndrome of right wrist noneactive NAFLD (nonalcoholic fatty liver disease) chronic RUQ abdominal pain chronic Hemorrhagic ovarian cyst acu te Pelvic pain acute PCOS (polycystic ovarian syndrome) chronic Inclusion cyst of vulva acut e Possible exposure to STD non eactive Dermatitis acute Anxiety and depression chron ic Hypertension chronic Class II obesity acute Hemorrhagic ovarian cyst acu te Left inguinal pain acute Type 2 diabetes mellitus acu te Tobacco abuse chronic Herniated nucleus pulposus, C4-5 left acute Lumbar facet joint syndrome acute [facility] Work Phone: Evaluation note* Diagnosis Onset Date Resolution Status Carpal tunnel syndrome of right wrist noneactive NAFLD (nonalcoholic fatty liver disease) chronic RUQ abdominal pain chronic Hemorrhagic ovarian cyst acu te Pelvic pain acute PCOS (polycystic ovarian syndrome) chronic Inclusion cyst of vulva acut e Possible exposure to STD non eactive Dermatitis acute Anxiety and depression chron ic Hypertension chronic Class II obesity acute Hemorrhagic ovarian cyst acu te Type 2 diabetes mellitus acu te Tobacco abuse chronic Herniated nucleus pulposus, C4-5 left acute Lumbar facet joint syndrome acute Orthopedic aftercare acute Orthopedic aftercare acute Contact with or exposure to other viral diseases acute Acute sinusitis, unspecified resolved [facility] Work Phone: Evaluation note* Diagnosis Onset Date Resolution Status NAFLD (nonalcoholic fatty liver disease) chronic RUQ abdominal pain chronic Hemorrhagic ovarian cyst acu te Pelvic pain acute PCOS (polycystic ovarian syndrome) chronic Inclusion cyst of vulva acut e Possible exposure to STD non eactive Dermatitis acute Anxiety and depression chron ic Hypertension chronic Class II obesity acute Hemorrhagic ovarian cyst acu te Type 2 diabetes mellitus acu te Tobacco abuse chronic Herniated nucleus pulposus, C4-5 left acute Lumbar facet joint syndrome acute Orthopedic aftercare acute Orthopedic aftercare acute Contact with or exposure to other viral diseases acute Acute sinusitis, unspecified resolved Orthopedic aftercare acute [facility] Work Phone: Evaluation note* Diagnosis Onset Date Resolution Status Hemorrhagic ovarian cyst acu te Pelvic pain acute PCOS (polycystic ovarian syndrome) chronic Inclusion cyst of vulva acut e Possible exposure to STD non eactive Dermatitis acute Anxiety and depression chron ic Hypertension chronic Class II obesity acute Hemorrhagic ovarian cyst acu te Type 2 diabetes mellitus acu te Tobacco abuse chronic Herniated nucleus pulposus, C4-5 left acute Lumbar facet joint syndrome acute Orthopedic aftercare acute Orthopedic aftercare acute Contact with or exposure to other viral diseases acute Acute sinusitis, unspecified resolved Orthopedic aftercare acute [facility] Work Phone: Evaluation note* Diagnosis Onset Date Resolution Status Inclusion cyst of vulva acut e Possible exposure to STD non eactive Dermatitis acute Anxiety and depression chron ic Hypertension chronic Class II obesity acute Hemorrhagic ovarian cyst acu te Type 2 diabetes mellitus acu te Tobacco abuse chronic Herniated nucleus pulposus, C4-5 left acute Lumbar facet joint syndrome acute Orthopedic aftercare acute Orthopedic aftercare acute Contact with or exposure to other viral diseases acute Acute sinusitis, unspecified resolved Orthopedic aftercare acute Climacteric acute Mastalgia acute [facility] Work Phone: Evaluation note* Diagnosis Onset Date Resolution Status Dermatitis acute Anxiety and depression chron ic Hypertension chronic Class II obesity acute Hemorrhagic ovarian cyst acu te Type 2 diabetes mellitus acu te Tobacco abuse chronic Herniated nucleus pulposus, C4-5 left acute Lumbar facet joint syndrome acute Orthopedic aftercare acute Orthopedic aftercare acute Contact with or exposure to other viral diseases acute Acute sinusitis, unspecified resolved Orthopedic aftercare acute Climacteric acute Mastalgia acute [facility] Work Phone: Evaluation note* Diagnosis Onset Date Resolution Status Hemorrhagic ovarian cyst acu te Type 2 diabetes mellitus acu te Class II obesity chronic Tobacco abuse chronic Herniated nucleus pulposus, C4-5 left acute Lumbar facet joint syndrome acute Orthopedic aftercare acute Orthopedic aftercare acute Contact with or exposure to other viral diseases acute Acute sinusitis, unspecified resolved Orthopedic aftercare acute Climacteric acute Mastalgia acute Type 2 diabetes mellitus acu te Class II obesity chronic Hypertension chronic NAFLD (nonalcoholic fatty liver disease) chronic RUQ abdominal pain chronic [facility] Work Phone: Evaluation note* Diagnosis Pelvic pain in female- Primary Unspecified symptom associated with female genital organs [facility] Onset Date Resolution Status Climacteric acute Mastalgia acute Type 2 diabetes mellitus acu te Class II obesity chronic Hypertension chronic NAFLD (nonalcoholic fatty liver disease) chronic RUQ abdominal pain chronic Herniated nucleus pulposus, C4-5 left acute Left-sided low back pain with left-sided sciatica acute Pain, dental acute Radiculopathy due to disorde r of intervertebral disc of lumbar spine acute Dental infection acute Hemorrhagic ovarian cyst acu te Pelvic pain acute Vaginitis acute [facility] Work Phone: Evaluation note* Diagnosis Onset Date Resolution Status Type 2 diabetes mellitus acu te Class II obesity chronic Hypertension chronic NAFLD (nonalcoholic fatty liver disease) chronic RUQ abdominal pain chronic Herniated nucleus pulposus, C4-5 left acute Left-sided low back pain with left-sided sciatica acute Pain, dental acute Radiculopathy due to disorde r of intervertebral disc of lumbar spine acute Dental infection acute Hemorrhagic ovarian cyst acu te Pelvic pain acute Vaginitis acute [facility] Work Phone: Evaluation note* Diagnosis NO SHOW- Primary [facility] Diagnosis Onset Date Resolution Status Herniated nucleus pulposus, C4-5 left acute Left-sided low back pain with left-sided sciatica acute Pain, dental acute Radiculopathy due to disorde r of intervertebral disc of lumbar spine acute Dental infection acute Hemorrhagic ovarian cyst acu te Pelvic pain acute Vaginitis acute Carpal tunnel syndrome of left wrist acute Cubital tunnel syndrome on left acute Herniated nucleus pulposus, C4-5 acute Carpal tunnel syndrome of left wrist acute Cubital tunnel syndrome on left acute NAFLD (nonalcoholic fatty liver disease) chronic RUQ abdominal pain chronic Vaginitis acute [facility] Work Phone: Evaluation note* Diagnosis Onset Date Resolution Status Herniated nucleus pulposus, C4-5 left acute Left-sided low back pain with left-sided sciatica acute Pain, dental acute Radiculopathy due to disorde r of intervertebral disc of lumbar spine acute Dental infection acute Hemorrhagic ovarian cyst acu te Pelvic pain acute Vaginitis acute Carpal tunnel syndrome of left wrist acute Cubital tunnel syndrome on left acute Herniated nucleus pulposus, C4-5 acute Carpal tunnel syndrome of left wrist acute Cubital tunnel syndrome on left acute NAFLD (nonalcoholic fatty liver disease) chronic RUQ abdominal pain chronic Vaginitis acute Class II obesity chronic [facility] Work Phone: Evaluation note* Diagnosis Onset Date Resolution Status Herniated nucleus pulposus, C4-5 left acute Left-sided low back pain with left-sided sciatica acute Pain, dental acute Radiculopathy due to disorde r of intervertebral disc of lumbar spine acute Dental infection acute Hemorrhagic ovarian cyst acu te Pelvic pain acute Vaginitis acute Carpal tunnel syndrome of left wrist acute Cubital tunnel syndrome on left acute Herniated nucleus pulposus, C4-5 acute Carpal tunnel syndrome of left wrist acute Cubital tunnel syndrome on left acute NAFLD (nonalcoholic fatty liver disease) chronic RUQ abdominal pain chronic Vaginitis acute Class II obesity chronic Acute pharyngitis acute Acute pharyngitis acute Breast pain, right acute [facility] Work Phone: Evaluation note* Diagnosis Pain- Primary [facility]ized [facility] Diagnosis Preoperative examination- Primary Preoperative examination, unspecified Abdominal pain, right upper quadrant Hypothyroidism (acquired) Unspecified hypothyroidism Smoker Tobacco use disorder Migraine without aura and without status migrainosus, not intractable Migraine without aura, without mention of intractable migraine without mention of status migrainosus Fatty liver Other chronic nonalcoholic liver disease ADHD (attention deficit hyperactivity disorder), combined type Attention deficit disorder with hyperactivity Obesity (BMI 35.0-39.9 without comorbidity) Obesity, unspecified Anxiety and depression Dysthymic disorder Acute pain of left shoulder documented in this encounter [facility] note* Diagnosis Preoperative examination- Primary Preoperative examination, unspecified Abdominal pain, right upper quadrant Hypothyroidism (acquired) Unspecified hypothyroidism Smoker Tobacco use disorder Migraine without aura and without status migrainosus, not intractable Migraine without aura, without mention of intractable migraine without mention of status migrainosus Fatty liver Other chronic nonalcoholic liver disease ADHD (attention deficit hyperactivity disorder), combined type Attention deficit disorder with hyperactivity Obesity (BMI 35.0-39.9 without comorbidity) Obesity, unspecified Anxiety and depression Dysthymic disorder Bronchitis Bronchitis, not specified as acute or chronic [facility] Diagnosis Onset Date Resolution Status Dermatitis acute Anxiety and depression chron ic Hypertension chronic Hemorrhagic ovarian cyst acu te Type 2 diabetes mellitus acu te Class II obesity chronic Tobacco abuse chronic Herniated nucleus pulposus, C4-5 left acute Lumbar facet joint syndrome acute Orthopedic aftercare acute Orthopedic aftercare acute Contact with or exposure to other viral diseases acute Acute sinusitis, unspecified resolved Orthopedic aftercare acute Climacteric acute Mastalgia acute Type 2 diabetes mellitus acu te Class II obesity chronic Hypertension chronic NAFLD (nonalcoholic fatty liver disease) chronic RUQ abdominal pain chronic [facility] Work Phone: Evaluation note* Diagnosis Plantar fasciitis- Primary Plantar fascial fibromatosis [facility] February 14, 2023 7:11am Note Date/Time February 14, 2023 7:11am [facility] Medical Records Department [address] [place] [id number] History & Physical Exam 02/14/23 0711 MR#: [id number] Acct: [id number] Name: LANA RIVERA Rep #:[id number] : 1985 37 From: Yusuf Apple DO PCP: Dr. Aleena Londno MD Status:R [facility] Location: [place] [address]- History and Physical Date of Admission: 02/14/23 [facility] [address] [place] [address] OFFICE VISIT Date of Service: 11/18/22 MR#: [id number] Acct: [id number] Name: LANA RIVERA Rep #: [id number] : 1985 Provider: Dr. Yusuf Apple DO Age/Sex: 37/F Location: [email or web address] Status: Signed Intake Vital Signs 09/02/2309:43 11/09/2315:37 Height 5 ft 6 in 5 ft 6 in Intake Visit Reasons: right wrist Chief Complaint: Right hand Allergies promethazine [From Phenergan] Allergy (Unknown, Verified 11/18/22 10:13) Unknownlatex Allergy (Verified 11/18/22 10:13) Itchingnaproxen Allergy (Verified 11/18/22 10:13) UnknownPenicillins [PCN] Allergy (Verified 11/18/22 10:13) Rashescitalopram [From Lexapro] Adverse Reaction (Intermediate, Verified 11/18/22 10:13) Lightheaded sertraline [From Zoloft] Adverse Reaction (Intermediate, Verified 11/18/22 10:13) Dizzy & Headachedicyclomine [From Bentyl] Adverse Reaction (Unknown, Verified 11/18/22 10:13) Unknownhydrocodone [From Vicodin] Adverse Reaction (Verified 11/18/22 10:13) Otherketorolac [From Toradol] Adverse Reaction (Verified 11/18/22 10:13) Other Medications vitamin E mixed 400 unit capsule 800 unit PO .qd supplement 04/12/22 [History Confirmed 11/18/22] amlodipine 5 mg tablet 5 mg PO DAILY bp #90 tabs 05/30/22 [Rx Confirmed 11/18/22] hydroxyzine pamoate 50 mg capsule 50 mg PO TID PRN anxiety #20 caps 05/30/22 [Rx Confirmed 11/18/22] meclizine 25 mg tablet 25 mg PO BID PRN dizziness #30 tabs 05/30/22 [Rx Confirmed 11/18/22] albuterol sulfate 2.5 mg/3 mL (0.083 %) solution for nebulization 2.5 mg (3 mL) inhalation Q6H PRN shortness of breath or wheezing #90 mL 06/27/22 [Rx Confirmed 11/18/22] cholecalciferol (vitamin D3) 1,250 mcg (50,000 unit) capsule 1,250 mcg PO QWEEK #14 caps 09/02/22 [Rx Confirmed 11/18/22] levothyroxine 137 mcg tablet 137 mcg PO DAILY synthroid #90 tabs 09/02/22 [Rx Confirmed 11/18/22] prochlorperazine maleate 10 mg tablet (Compazine) 10 mg PO BID PRN Migraine Symptoms #30 tabs 09/02/22 [Rx Confirmed 11/18/22] ursodiol 300 mg capsule 300 mg PO BID #180 caps 09/02/22 [Rx Confirmed 11/18/22] venlafaxine 37.5 mg capsule,extended release 24 hr (Effexor XR) 37.5 mg PO DAILY#60 caps 09/02/22 [Rx Confirmed 11/18/22] ondansetron 4 mg disintegrating tablet 4 mg PO Q8H PRN PRN Nausea #10 tabs 11/08/22 [Rx Confirmed 11/18/22] oxycodone-acetaminophen 5 mg-325 mg tablet (Percocet) 1 tab PO Q8H PRN pain 3 days #10 tabs 11/08/22 [Rx Confirmed 11/18/22] ketoprofen 75 mg capsule 75 mg PO Q6H PRN Migraine Symptoms #100 caps 11/14/22 [Rx Confirmed 11/18/22] PFSH Medical History Abdominal pain ADHD (attention deficit hyperactivity disorder), combined type Anxiety and depression Arthritis Back pain Bronchitis Cancer Cardiology follow-up encounter Cervical lymphadenopathy Cervical radiculopathy Chronic back pain Chronic pain Chronic RUQ pain Depression Easy bruising Ectopic cardiac beats Fatty liver Fibromyalgia NICOLÁS (generalized anxiety disorder) Almaz's thyroiditis Heartburn History of acne History of echocardiogram History of gestational diabetes History of pain when walking History of stress test Hypertension Hypocalcemia Injury of head and neck Left shoulder pain Left-sided low back pain with left-sided sciatica Localized swelling, mass and lump, neck Melanoma Migraine without aura and with status migrainosus, not intractable Morbid obesity MARCELINO (nonalcoholic steatohepatitis) Numbness and tingling of both upper extremities Numbness of both lower extremities Palpitations Post herpetic neuralgia Restless legs Right femoral fracture RUQ abdominal pain Syncope Thyroid disease Tinnitus Tobacco abuse Vertigo Surgical History History of surgery on arm History of thyroidectomy History of total vaginal hysterectomy (TVH) (~03/22/22) Status post incision and drainage (~04/15/22) Family History Grandmother DiabetesOther Family history of skin cancer High cholesterol Hypertension Social History Smoking Status: Current every day smoker tobacco type: cigarettes Tobacco: How many years used: 13 Electronic Cigarette Use: not used second hand exposure: No alcohol intake: current alcohol intake frequency: holidays/special occasions only substance use type: does not use caffeine: Yes what type of physical activity do you participate in: none seatbelt use: always do you feel safe at home: Yes additional social history: [employer] right wrist Details: Parts of this documentation were recorded by a scribe, this documentation accurately reflects the service provided and the decisions made by me, Dr. Yusuf Apple, DO 11/18/22 0756. LANA RIVERA is a 37 year old F here today for f/u [facility] Pt. states that her pain and numbness is getting worse. She states that he has been using night bracing for the last 3 months which isnt helpful. She has also been using ice for the pain at times. Ortho Exam General General: Yes no acute distress Neurologic: Yes alert and Yes oriented x3 Psychologic: Yes reasonable and appropriate Right Wrist/Hand Skin/Wound: Yes CDI, No Swelling, No Ecchymosis, Yes nail intact and Yes capillary refill normal Right Wrist: Yes Tinel's and Phalen's; No Thenar Atrophy or Hypothenar Atrophy Left Wrist/Hand Skin/Wound: No Swelling and No Ecchymosis Head: Normocephalic Atraumatic Chest: symmetrical rise, non-labored breathing, no audible wheeze Abdomen: no guarding, non-rigid Supplemental Info 11/14/2022 EMG right upper extremity: Right median motor and sensory latencies are prolonged consistent with moderate carpal tunnel syndrome 02/23/2022 EMG left upper extremity: Left mild median sensory neuropathy consistent with carpal tunnel no evidence of cervical radiculopathy 07/24/2020 MRI cervical spine:Mild degenerative disc disease with reversal normal lordotic curvature possibly from muscular spasm. Coding Level of Care Code Off vis,est,level 3 Diagnoses Carpal tunnel syndrome of right wrist G56.01 Assessment and Plan Assessment and Plan (1) Carpal tunnel syndrome of right wrist: Plan Personally reviewed patients EMG and edcuated that she does have moderate carpaltunnel syndrome. Treatment options are continue with bracing or steroid injection, benign neglect nerve glide exercises or right CTR. Reviewed the pre-operative plans with the patient. Risks and benefits of the procedure were fullyexplained, including but not limited to incisional hypersensitivity pillar pain continued symptoms recurrence of his symptoms infection, neurovascular injury, continued pain, arthritis, stiffness, need for further surgery, re-injury, DVT, PE, general risks of anesthesia, and loss of limb or life. She also understandsshe will have 3 weeks of weight restrictions postoperatively and expected postoperative course was reviewed. the patient understands all the risks and does wish to proceed with written consent for right open carpal tunnel release. Follow up 2 weeks post op or sooner if pain, swelling, numbness or associated symptoms, or concerns develop. All questions answered. Patient in agreement of plan. Tentative surgery date November 29, 2022 instructed to discontinue all NSAIDs 1 weekprior to surgery 11/18/22 1040 <Electronically signed by Yusuf Apple DO> Date Yusuf Apple DO Cosigner Signature: Date (if applicable) I have examined the patient and the H&P has been reviewed. There are no clinicalchanges since date of exam. 02/14/23 0711 <Electronically signed by Yusuf Apple DO> Cosigner Signature (if applicable): CC: Dr. Aleena London MD; Dr. Yusuf Apple DO~ Signed [facility] Work Phone: [facility] Work Phone: Hospital Discharge instructions Additional Instructions Do not take your cyclobenzaprine. Take Valium as prescribed as needed. Start your Cymbalta as prescribed by your pain doctor. Start your steroids a report is at the pharmacy. We discussed with Dr. Avilez for possible tramadol as he noted on his consult if needed. Follow- up with your doctors.[facility] Work Phone: Hospital Discharge instructions Additional Instructions Please follow-up outpatient.[facility] Work Phone: Hospital Discharge instructions Additional Instructions Follow-up with Dr. Tracy and your nursing support worker.[facility] Work Phone: Hospital Discharge instructions Additional Instructions Today your cardiac work-up was normal. Based on your examination I think you have musculoskeletal pain in the trapezius and shoulder area and prescribed a different muscle relaxer you can try. You can also add Tylenol 1000 mg every 6 hours to your regimen of ketoprofen. Please follow-up with your primary care doctor.[facility] Work Phone: Hospital Discharge instructions Additional Instructions UpPlease follow-up with your CLINICAL CODER for this pain. Lives at antibiotic ointment to the open wounds in your left groin. I we have referred you to general surgery for further evaluation of these lymph nodes and pain in your thigh. You can continue to take your anti-inflammatory (ketoprofen) for pain. Apply cool compresses to the area.[facility] Work Phone: Hospital Discharge instructions Additional Instructions The exact cause your pain is not clear. Does not appear to be any acute infection or surgical abnormality. I question if you could have of nerve pain that is going into your groin and down your leg. Typically would treat this with steroids and or anti-inflammatories bed as you cannot take these we are somewhat limited. Please follow-up with your primary care doctor to discuss further pain management. You can try [id number] 4% exercise Lidoderm patches. Please continue to follow-up with your outpatient ultrasound for your lymph nodes and with surgery as well. I would recommend that you follow-up with your anesthesiology physician assistant. I will give you information for a spine doctor in case this pain is actually coming from your back.[facility] Work Phone: Hospital Discharge instructions Additional Instructions Take baby aspirin every day along with warm/hot compresses to affected area 2-3 times daily until pain resolved.[facility] Work Phone: Hospital Discharge instructions Additional Instructions This should improve over the next week.[facility] Work Phone: Reason for referral (narrative)* Diagnostic Procedure Only (Routine) - Authorized Specialty Diagnoses / Procedures Referred By Contac t Referred To Contact XR IMAGING Diagnoses Pain Procedures XR FOOT GENERAL 3V AP/LAT/OBL RIGHT RADEX FOOT COMPLETE MINIMUM 3 VIEWS Patrick Fontaine [address] [address] [place] [address] Referral ID Status Reason Start Date Expiration Date Visits Requested Visits Authorized [id number] Authorized Auto-Generat ed Referral 11/20/2023 12/19/2024 [address] [facility] for referral (narrative)* Diagnostic Procedure Only (Urgent) - Closed Specialty Diagnoses / Procedures Referred By Contac t Referred To Contact XR IMAGING Diagnoses Acute pain of left shoulder Procedures XR SHOULDER GENERAL 3V OR MORE AP/TRUE AP/OTHER LT X-RAY SHOULDER COMPLET MIN 2 VIEWS Kavita Jurado PA-C [address] [place] [address] [place] [address] Referral ID Status Reason Start Date Expiration Date V isits Requested Visits Authorized [id number] Closed Auto-Generate d Referral 12/31/2020 01/30/2022 [address] [facility] for visit Narrative* Diagnostic Procedure Only (Urgent) - Closed Specialty Diagnoses / Procedures Referred By Contac t Referred To Contact XR IMAGING Diagnoses Acute pain of left shoulder Procedures XR SHOULDER GENERAL 3V OR MORE AP/TRUE AP/OTHER LT X-RAY SHOULDER COMPLET MIN 2 VIEWS Kavita Jurado PA-C [address] [place] [address] [place] [address] Referral ID Status Reason Start Date Expiration Date V isits Requested Visits Authorized [id number] Closed Auto-Generate d Referral 12/31/2020 01/30/[address] [facility] Summary Purpose Family History No Family History Records Found Relationship Condition Age at Onset Recorded Date/T jo Not Specified High blood cholesterol Unknown Family history of ma lignant neoplasm of skin Unknown Hypertension Unknown grandmother Diabetes mellitus Unknown Advance Directives No Advanced Directives Records Found Advance Directive Response Recorded Date/ Time Advance Directives No June 29, 2021 12:31pm Living Will No August 20, 2021 3:48pm Power of Property Inspector No August 20 3:48pm Advance Directive Response Recorded Date/ Time Advance Directives No June 29, 2021 12:31pm Living Will No August 25, 2021 10:11pm Power of Property Inspector No August 25 10:11pm Advance Directive Response Recorded Date/ Time Advance Directives No June 29, 2021 12:31pm Living Will No November 27, 2021 1 :20am Power of Property Inspector No November 27, 2021 1:20am Advance Directive Response Recorded Date/ Time Advance Directives No December 14 10:42am Living Will No December 23, 2021 10:29pm Power of Property Inspector No December 23 10:29pm Advance Directive Response Recorded Date/ Time Advance Directives No December 24 9:47am Living Will No December 24, 2021 9:47am Power of Property Inspector No December 24 9:47am Advance Directive Response Recorded Date/ Time Advance Directives No December 24 9:47am Living Will No February 15, 2022 11:42am Power of Property Inspector No January 11:42am Advance Directive Response Recorded Date/ Time Advance Directives No December 24 9:47am Living Will No March 04 2:10pm Power of Property Inspector No March 04, 2022 2:10pm Advance Directive Response Recorded Date/ Time Advance Directives No December 24 9:47am Living Will No March 12 12:40pm Power of Property Inspector No March 12, 2022 12:40pm Advance Directive Response Recorded Date/ Time Advance Directives No [place] [address], 2 022 9:47am Living Will No March 22 5:41pm Power of Property Inspector No March 22, 2022 5:41pm Advance Directive Response Recorded Date/ Time Advance Directives No December 24 8:47am Living Will No March 30 3:11pm Power of Property Inspector No March 30, 2022 3:11pm Advance Directive Response Recorded Date/ Time Advance Directives No December 24 8:47am Living Will No April 12 4:52pm Power of Property Inspector No April 12, 2022 4:52pm Advance Directive Response Recorded Date/ Time Advance Directives No December 24 8:47am Living Will No April 12 8:56pm Power of Property Inspector No April 12, 2022 8:56pm Advance Directive Response Recorded Date/ Time Advance Directives No December 24 8:47am Living Will No April 18 5:38pm Power of Property Inspector No April 18, 2022 5:38pm Advance Directive Response Recorded Date/ Time Advance Directives No December 24 8:47am Living Will No May 22 11:57pm Power of Property Inspector No May 22 11:57pm Advance Directive Response Recorded Date/ Time Advance Directives No December 24 8:47am Living Will No June 10 9:17am Power of Property Inspector No June 10, 2022 9:17am Advance Directive Response Recorded Date/ Time Advance Directives No December 24 8:47am Living Will No July 17 7:06pm Power of Property Inspector No July 17, 2022 7:06pm Advance Directive Response Recorded Date/ Time Advance Directives No December 24 9:47am Living Will No July 17 8:06pm Power of Property Inspector No July 17, 2022 8:06pm Advance Directive Response Recorded Date/ Time Advance Directives No December 24 9:47am Living Will No August 26, 2022 3:23pm Power of Property Inspector No August 26 3:23pm Advance Directive Response Recorded Date/ Time Advance Directives No December 24 9:47am Living Will No November 08, 2022 4:52pm Power of Property Inspector No November 08 4:52pm Advance Directive Response Recorded Date/ Time Advance Directives No December 24, 2 022 9:47am Living Will No November 19, 2022 9 :51pm Power of Property Inspector No November 19, 2022 9:51pm Advance Directive Response Recorded Date/ Time Advance Directives No November 24 2:09pm Living Will No November 25, 2022 2 :14pm Power of Property Inspector No November 25, 2022 2:14pm Advance Directive Response Recorded Date/ Time Advance Directives No December 13 10:51am Living Will No December 13, 2022 10:51am Power of Property Inspector No December 13 10:51am Advance Directive Response Recorded Date/ Time Advance Directives No December 13 10:51am Living Will No December 25, 2022 1:19pm Power of Property Inspector No December 25 1:19pm Advance Directive Response Recorded Date/ Time Advance Directives No December 13 10:51am Living Will No February 04, 2023 7:53pm Power of Property Inspector No January 7:53pm Advance Directive Response Recorded Date/ Time Advance Directives No December 13 10:51am Living Will No February 08, 2023 6:47pm Power of Property Inspector No January 6:47pm Advance Directive Response Recorded Date/ Time Advance Directives No January 10:58am Living Will No February 10, 2023 10:58am Power of Property Inspector No January 10:58am Advance Directive Response Recorded Date/ Time Advance Directives No March 16, 2023 7:15am Living Will No March 16 7:15am Power of Property Inspector No March 16, 2023 7:15am Advance Directive Response Recorded Date/ Time Advance Directives No March 16, 2023 7:15am Living Will No April 17 023 4:04pm Power of Property Inspector No April 17, 2023 4:04pm Advance Directive Response Recorded Date/ Time Advance Directives No March 16, 2023 7:15am Living Will No May 04 023 12:57pm Power of Property Inspector No May 04, 2023 12:57pm Advance Directive Response Recorded Date/ Time Advance Directives No March 16, 2023 7:15am Living Will No July 18 10:49pm Power of Property Inspector No July 18, 2023 10:49pm Advance Directive Response Recorded Date/ Time Advance Directives No March 16, 2023 7:15am Living Will No July 25, 2023 8:51pm Power of Property Inspector No July 24 8:51pm Advance Directive Response Recorded Date/ Time Advance Directives No August 07 8:42am Living Will No August 08, 2023 8:42am Power of Property Inspector No August 07 8:42am Advance Directive Response Recorded Date/ Time Advance Directives No March 16, 2023 8:15am Living Will No July 25, 2023 9:51pm Power of Property Inspector No July 24 9:51pm Advance Directive Response Recorded Date/ Time Advance Directives No March 16, 2023 8:15am Living Will No September 08, 2023 10:23am Power of Property Inspector No September 07 10:23am Advance Directive Response Recorded Date/ Time Advance Directives No March 16, 2023 8:15am Living Will No September 29, 2023 3 :36pm Power of Property Inspector No September 29, 2023 3:36pm Chief Complaint and Reason for Visit Chief Complaint Back Pain, Fall 2 M FU PHONE-COLD SYMPTOMS COVID TEST bp issues 6-8 WK F/UP RUQ PAIN abd pain anxiety /insomnia enlarged liver & spleen FATTY LIVER CP/ANXIETY/REF. OHVP boil inner thigh PALPS HTN CHEST PAIN CERVICAL/ RX HERE Annual (CONE FORMER) 6 WK FU DIZZY SPELLS ABD PAIN Reason for Visit Mass of lower lobe o f lung Obesity Cough ADHD Generalized anxiety disorder with panic attacks Tobacco abuse RUQ abdominal pain ADHD Smoker MARCELINO (nonalcoholic steatohepatitis) RUQ abdominal pain Anxiety Chest pain Ectopic cardiac beats Essential hypertension Obesity Palpitations Abscess of right thigh Menorrhagia with irregular cycle Personal history of malignant melanoma Tobacco abuse Hepatosplenomegaly RUQ abdominal pain Tinnitus Vertigo Chief Complaint Back Pain, Fall 2 M FU PHONE-COLD SYMPTOMS COVID TEST bp issues 6-8 WK F/UP RUQ PAIN abd pain anxiety /insomnia enlarged liver & spleen FATTY LIVER CP/ANXIETY/REF. OHVP boil inner thigh PALPS HTN CHEST PAIN CERVICAL/ RX HERE Annual (CONE FORMER) 6 WK FU DIZZY SPELLS ABD PAIN neck pain Reason for Visit Mass of lower lobe o f lung Obesity Cough ADHD Generalized anxiety disorder with panic attacks Tobacco abuse RUQ abdominal pain ADHD Smoker MARCELINO (nonalcoholic steatohepatitis) RUQ abdominal pain Anxiety Chest pain Ectopic cardiac beats Essential hypertension Obesity Palpitations Abscess of right thigh Menorrhagia with irregular cycle Personal history of malignant melanoma Tobacco abuse Hepatosplenomegaly RUQ abdominal pain Tinnitus Vertigo Chief Complaint bp issues 6-8 WK F/UP RUQ PAIN abd pain anxiety /insomnia enlarged liver & spleen FATTY LIVER CP/ANXIETY/REF. OHVP boil inner thigh PALPS HTN CHEST PAIN CERVICAL/ RX HERE Annual (CONE FORMER) 6 WK FU DIZZY SPELLS ABD PAIN neck pain CHEST CONGESTION/COUGH consult ablation ER FU fluid in ears AUB Reason for Visit ADHD Generalized anxiety disorder with panic attacks Tobacco abuse RUQ abdominal pain ADHD Smoker MARCELINO (nonalcoholic steatohepatitis) RUQ abdominal pain Anxiety Chest pain Ectopic cardiac beats Essential hypertension Obesity Palpitations Abscess of right thigh Menorrhagia with irregular cycle Personal history of malignant melanoma Tobacco abuse Hepatosplenomegaly RUQ abdominal pain Tinnitus Vertigo Acute bronchitis Menorrhagia with irregular cycle Heartburn Hematochezia MARCELINO (nonalcoholic steatohepatitis) Chronic RUQ pain Chief Complaint abd pain anxiety /insomnia enlarged liver & spleen FATTY LIVER CP/ANXIETY/REF. OHVP boil inner thigh PALPS HTN CHEST PAIN Annual (CONE FORMER) 6 WK FU DIZZY SPELLS ABD PAIN neck pain CHEST CONGESTION/COUGH consult ablation ER FU fluid in ears AUB /[facility] CERVICAL/ RX HERE 1 MO FU AUB AUB Reason for Visit ADHD Smoker MARCELINO (nonalcoholic steatohepatitis) RUQ abdominal pain Anxiety Chest pain Ectopic cardiac beats Essential hypertension Obesity Palpitations Abscess of right thigh Menorrhagia with irregular cycle Personal history of malignant melanoma Tobacco abuse Hepatosplenomegaly RUQ abdominal pain Tinnitus Vertigo Acute bronchitis Menorrhagia with irregular cycle Heartburn Hematochezia MARCELINO (nonalcoholic steatohepatitis) Chronic RUQ pain Anxiety Chest pain Ectopic cardiac beats Essential hypertension Obesity Palpitations Menorrhagia with irregular cycle Chief Complaint anxiety /insomnia enlarged liver & spleen FATTY LIVER CP/ANXIETY/REF. OHVP boil inner thigh PALPS HTN CHEST PAIN Annual (CONE FORMER) 6 WK FU DIZZY SPELLS ABD PAIN neck pain CHEST CONGESTION/COUGH consult ablation ER FU fluid in ears AUB CP/[facility] CERVICAL/ RX HERE 1 MO FU AUB AUB Cough 3 M FU Reason for Visit ADHD Smoker MARCELINO (nonalcoholic steatohepatitis) RUQ abdominal pain Anxiety Chest pain Ectopic cardiac beats Essential hypertension Obesity Palpitations Abscess of right thigh Menorrhagia with irregular cycle Personal history of malignant melanoma Tobacco abuse Hepatosplenomegaly RUQ abdominal pain Tinnitus Vertigo Acute bronchitis Menorrhagia with irregular cycle Heartburn Hematochezia MARCELINO (nonalcoholic steatohepatitis) Chronic RUQ pain Anxiety Chest pain Ectopic cardiac beats Essential hypertension Obesity Palpitations Menorrhagia with irregular cycle Acute bronchitis, unspecified Acute sinusitis, unspecified Acute bronchitis, unspecified Essential hypertension 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 OHVP boil inner thigh PALPS HTN CHEST PAIN Annual (CONE FORMER) 6 WK FU DIZZY SPELLS ABD PAIN neck pain CHEST CONGESTION/COUGH consult ablation ER FU fluid in ears AUB CP/[facility] CERVICAL/ RX HERE 1 MO FU AUB AUB Cough 3 M FU Palpitations Palpitations RASH ON BODY Reason for Visit Anxiety Chest pain Ectopic cardiac beats Essential hypertension Obesity Palpitations Abscess of right thigh Menorrhagia with irregular cycle Personal history of malignant melanoma Tobacco abuse Hepatosplenomegaly RUQ abdominal pain Tinnitus Vertigo Acute bronchitis Menorrhagia with irregular cycle Heartburn Hematochezia MARCELINO (nonalcoholic steatohepatitis) Chronic RUQ pain Anxiety Chest pain Ectopic cardiac beats Essential hypertension Obesity Palpitations Menorrhagia with irregular cycle Acute bronchitis, unspecified Acute sinusitis, unspecified Acute bronchitis, unspecified Essential hypertension 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 Annual (CONE FORMER) 6 WK FU DIZZY SPELLS ABD PAIN neck pain CHEST CONGESTION/COUGH consult ablation ER FU fluid in ears AUB /[facility] CERVICAL/ RX HERE 1 MO FU AUB AUB Cough 3 M FU Palpitations Palpitations RASH ON BODY Rash/Hives TINGILING ON FACE, SWOLLEN NECK HAVING ISSUES tingling to face, pain to head Reason for Visit Menorrhagia with irr egular cycle Personal history of malignant melanoma Tobacco abuse Encounter for routine gynecological examination Hepatosplenomegaly RUQ abdominal pain Tinnitus Vertigo Acute bronchitis Menorrhagia with irregular cycle Heartburn Hematochezia MARCELINO (nonalcoholic steatohepatitis) Chronic RUQ pain Ear pressure Cerumen impaction Anxiety Chest pain Ectopic cardiac beats Essential hypertension Obesity Palpitations Menorrhagia with irregular cycle Acute bronchitis, unspecified Acute sinusitis, unspecified Acute bronchitis, unspecified Essential hypertension 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 Irritant contact dermatitis due to plant Urticaria Cervical lymphadenopathy Fatigue Left leg paresthesias Low back pain Numbness and tingling of both upper extremities Vitamin d deficiency Chief Complaint CHEST CONGESTION/COU GH consult ablation ER FU fluid in ears [facility] CERV[facility]/ RX HERE 1 MO FU AUB AUB Cough 3 M FU Palpitations Palpitations RASH ON BODY Rash/Hives TINGILING ON FACE, SWOLLEN NECK HAVING ISSUES tingling to face, pain to head NECK PAIN AND SWELLING f/u AUB, missed appt on 12/10 ABD PAIN Reason for Visit Acute bronchitis Menorrhagia with irregular cycle Heartburn Hematochezia MARCELINO (nonalcoholic steatohepatitis) Chronic RUQ pain Ear pressure Cerumen impaction Anxiety Chest pain Ectopic cardiac beats Essential hypertension Obesity Palpitations Menorrhagia with irregular cycle Acute bronchitis, unspecified Acute sinusitis, unspecified Acute bronchitis, unspecified Essential hypertension 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 Irritant contact dermatitis due to plant Urticaria Cervical lymphadenopathy Fatigue Left leg paresthesias Low back pain Numbness and tingling of both upper extremities Vitamin d deficiency Menorrhagia with irregular cycle Chief Complaint ER FU fluid in ears [facility] CERV[facility]/ RX HERE 1 MO FU AUB AUB Cough 3 M FU Palpitations Palpitations RASH ON BODY Rash/Hives TINGILING ON FACE, SWOLLEN NECK HAVING ISSUES tingling to face, pain to head NECK PAIN AND SWELLING f/u AUB, missed appt on 12/10 ABD PAIN FU INT LAB/LABSPEC Reason for Visit Heartburn Hematochezia MARCELINO (nonalcoholic steatohepatitis) Chronic RUQ pain Ear pressure Cerumen impaction Anxiety Chest pain Ectopic cardiac beats Essential hypertension Obesity Palpitations Menorrhagia with irregular cycle Acute bronchitis, unspecified Acute sinusitis, unspecified Acute bronchitis, unspecified Essential hypertension 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 Irritant contact dermatitis due to plant Urticaria Cervical lymphadenopathy Fatigue Left leg paresthesias Low back pain Numbness and tingling of both upper extremities Vitamin d deficiency Menorrhagia with irregular cycle Early satiety MARCELINO (nonalcoholic steatohepatitis) Chronic RUQ pain Chief Complaint fluid in ears [facility] CERVICAL/ RX HERE 1 MO FU AUB AUB Cough 3 M FU Palpitations Palpitations RASH ON BODY Rash/Hives TINGILING ON FACE, SWOLLEN NECK HAVING ISSUES tingling to face, pain to head NECK PAIN AND SWELLING f/u AUB, missed appt on 12/10 ABD PAIN FU INT LAB/LABSPEC RUQ PAIN E ORDERS Reason for Visit Ear pressure Cerumen impaction Anxiety Chest pain Ectopic cardiac beats Essential hypertension Obesity Palpitations Menorrhagia with irregular cycle Acute bronchitis, unspecified Acute sinusitis, unspecified Acute bronchitis, unspecified Essential hypertension 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 Irritant contact dermatitis due to plant Urticaria Cervical lymphadenopathy Fatigue Left leg paresthesias Low back pain Numbness and tingling of both upper extremities Vitamin d deficiency Menorrhagia with irregular cycle Early satiety MARCELINO (nonalcoholic steatohepatitis) Chronic RUQ pain Chief Complaint Rash/Hives TINGILING ON FACE, SWOLLEN NECK HAVING ISSUES tingling to face, pain to head NECK PAIN AND SWELLING f/u AUB, missed appt on 12/10 ABD PAIN FU INT LAB/LABSPEC RUQ PAIN E ORDERS 3 M FU LEFT SIDE NECK SWELLING pre op RUQ PAIN FLANK 2 WK FU BILAT CARPAL TUNNEL SYNDROME CERVICAL SPINE BACK PAIN xray Reason for Visit Urticaria Cervical lymphadenopathy Left leg paresthesias Low back pain Vitamin d deficiency Fatigue Numbness and tingling of both upper extremities Menorrhagia with irregular cycle Early satiety MARCELINO (nonalcoholic steatohepatitis) Chronic RUQ pain Essential hypertension Localized swelling, mass and lump, neck Obesity Type 2 diabetes mellitus Menorrhagia with irregular cycle Almaz's thyroiditis Metabolic syndrome NAFLD (nonalcoholic fatty liver disease) Obesity Fibromyalgia affecting multiple sites Meralgia paresthetica of left side Sciatica, right side Strain of lumbar region Low back pain Chief Complaint TINGILING ON FACE, S WOLLEN NECK HAVING ISSUES tingling to face, pain to head NECK PAIN AND SWELLING f/u AUB, missed appt on 12/10 ABD PAIN FU INT LAB/LABSPEC RUQ PAIN E ORDERS 3 M FU LEFT SIDE NECK SWELLING pre op RUQ PAIN FLANK 2 WK FU BILAT CARPAL TUNNEL SYNDROME CERVICAL SPINE BACK PAIN xray BACK PAIN BACK Reason for Visit Cervical lymphadenop athy Left leg paresthesias Low back pain Vitamin d deficiency Fatigue Numbness and tingling of both upper extremities Menorrhagia with irregular cycle Early satiety MARCELINO (nonalcoholic steatohepatitis) Chronic RUQ pain Essential hypertension Localized swelling, mass and lump, neck Obesity Type 2 diabetes mellitus Menorrhagia with irregular cycle Almaz's thyroiditis Metabolic syndrome NAFLD (nonalcoholic fatty liver disease) Obesity Fibromyalgia affecting multiple sites Meralgia paresthetica of left side Sciatica, right side Strain of lumbar region Low back pain Chronic low back pain Fibromyalgia Chief Complaint TINGILING ON FACE, S WOLLEN NECK HAVING ISSUES tingling to face, pain to head NECK PAIN AND SWELLING f/u AUB, missed appt on 12/10 ABD PAIN FU INT LAB/LABSPEC RUQ PAIN E ORDERS 3 M FU LEFT SIDE NECK SWELLING pre op RUQ PAIN FLANK 2 WK FU BILAT CARPAL TUNNEL SYNDROME CERVICAL SPINE BACK PAIN xray BACK BACK PAIN BACK BACK Reason for Visit Cervical lymphadenop athy Left leg paresthesias Low back pain Vitamin d deficiency Fatigue Numbness and tingling of both upper extremities Menorrhagia with irregular cycle Early satiety MARCELINO (nonalcoholic steatohepatitis) Chronic RUQ pain Essential hypertension Localized swelling, mass and lump, neck Obesity Type 2 diabetes mellitus Menorrhagia with irregular cycle Almaz's thyroiditis Metabolic syndrome NAFLD (nonalcoholic fatty liver disease) Obesity Fibromyalgia affecting multiple sites Meralgia paresthetica of left side Sciatica, right side Strain of lumbar region Low back pain Chronic low back pain Fibromyalgia Chief Complaint tingling to face, pa in to head NECK PAIN AND SWELLING f/u [facility], missed appt on 12/10 ABD PAIN FU INT LAB/LABSPEC RUQ PAIN E ORDERS 3 M FU LEFT SIDE NECK SWELLING pre op RUQ PAIN FLANK 2 WK FU BILAT CARPAL TUNNEL SYNDROME CERVICAL SPINE BACK PAIN xray BACK BACK PAIN BACK BACK TVH, BS TVH, BS TVH, BS Reason for Visit Menorrhagia with irr egular cycle Early satiety MARCELINO (nonalcoholic steatohepatitis) Chronic RUQ pain Type 2 diabetes mellitus Essential hypertension Localized swelling, mass and lump, neck Obesity Menorrhagia with irregular cycle Almaz's thyroiditis Metabolic syndrome NAFLD (nonalcoholic fatty liver disease) Obesity Fibromyalgia affecting multiple sites Meralgia paresthetica of left side Sciatica, right side Strain of lumbar region Low back pain Chronic low back pain Fibromyalgia Menorrhagia with irregular cycle S/P vaginal hysterectomy Type 2 diabetes mellitus Hypertension Metabolic syndrome PCOS (polycystic ovarian syndrome) Chief Complaint f/u AUB, missed appt on 12/10 ABD PAIN FU INT LAB/LABSPEC RUQ PAIN E ORDERS 3 M FU LEFT SIDE NECK SWELLING pre op RUQ PAIN FLANK 2 WK FU BILAT CARPAL TUNNEL SYNDROME CERVICAL SPINE BACK PAIN xray BACK BACK PAIN BACK BACK TVH, BS TVH, BS TVH, BS incision pain HYSTERECTOMY PAIN 2 wk TVHBS/needs sign title 19 Reason for Visit Menorrhagia with irr egular cycle Early satiety MARCELINO (nonalcoholic steatohepatitis) Chronic RUQ pain Type 2 diabetes mellitus Essential hypertension Localized swelling, mass and lump, neck Obesity Menorrhagia with irregular cycle Almaz's thyroiditis Metabolic syndrome NAFLD (nonalcoholic fatty liver disease) Obesity Fibromyalgia affecting multiple sites Meralgia paresthetica of left side Sciatica, right side Strain of lumbar region Low back pain Chronic low back pain Fibromyalgia Menorrhagia with irregular cycle S/P vaginal hysterectomy Type 2 diabetes mellitus Hypertension Metabolic syndrome PCOS (polycystic ovarian syndrome) Postoperative pain Postoperative pain Urinary hesitancy Chief Complaint f/u AUB, missed appt on 12/10 ABD PAIN FU INT LAB/LABSPEC RUQ PAIN E ORDERS 3 M FU LEFT SIDE NECK SWELLING pre op RUQ PAIN FLANK 2 WK FU BILAT CARPAL TUNNEL SYNDROME CERVICAL SPINE BACK PAIN xray BACK BACK PAIN BACK BACK TVH, BS TVH, BS TVH, BS incision pain HYSTERECTOMY PAIN 2 wk TVHBS/needs sign title 19 POST OP ABSCESS Reason for Visit Menorrhagia with irr egular cycle Early satiety MARCELINO (nonalcoholic steatohepatitis) Chronic RUQ pain Type 2 diabetes mellitus Essential hypertension Localized swelling, mass and lump, neck Obesity Menorrhagia with irregular cycle Almaz's thyroiditis Metabolic syndrome NAFLD (nonalcoholic fatty liver disease) Obesity Fibromyalgia affecting multiple sites Meralgia paresthetica of left side Sciatica, right side Strain of lumbar region Low back pain Chronic low back pain Fibromyalgia Menorrhagia with irregular cycle S/P vaginal hysterectomy Type 2 diabetes mellitus Hypertension Metabolic syndrome PCOS (polycystic ovarian syndrome) Postoperative pain Postoperative pain Urinary hesitancy Abdominal pain Chest pain Class II obesity History of hypertension MARCELINO (nonalcoholic steatohepatitis) Postoperative abscess Postoperative pain Type 2 diabetes mellitus Chronic back pain Hypertension Tobacco abuse Chief Complaint ABD PAIN FU INT LAB/LABSPEC RUQ PAIN E ORDERS 3 M FU LEFT SIDE NECK SWELLING pre op RUQ PAIN FLANK 2 WK FU BILAT CARPAL TUNNEL SYNDROME CERVICAL SPINE BACK PAIN xray BACK BACK PAIN BACK BACK TVH, BS TVH, BS TVH, BS incision pain HYSTERECTOMY PAIN 2 wk TVHBS/needs sign title 19 POST OP ABSCESS POST OP ABSCESS POST OP ABSCESS POST OP ABSCESS POST OP ABSCESS Reason for Visit Early satiety MARCELINO (nonalcoholic steatohepatitis) Chronic RUQ pain Type 2 diabetes mellitus Localized swelling, mass and lump, neck Obesity Almaz's thyroiditis Metabolic syndrome Menorrhagia with irregular cycle NAFLD (nonalcoholic fatty liver disease) Fibromyalgia affecting multiple sites Meralgia paresthetica of left side Sciatica, right side Strain of lumbar region Low back pain Chronic low back pain Fibromyalgia S/P vaginal hysterectomy Type 2 diabetes mellitus Hypertension Metabolic syndrome PCOS (polycystic ovarian syndrome) Menorrhagia with irregular cycle Postoperative pain Postoperative pain Urinary hesitancy Class II obesity Fibromyalgia affecting multiple sites MARCELINO (nonalcoholic steatohepatitis) Postoperative abscess Postoperative pain S/P vaginal hysterectomy Sciatica, right side Type 2 diabetes mellitus Chronic back pain Generalized anxiety disorder with panic attacks Almaz's thyroiditis Hypertension Metabolic syndrome PCOS (polycystic ovarian syndrome) Personal history of malignant melanoma Tobacco abuse Abdominal pain Chest pain History of hypertension Chief Complaint ABD PAIN FU INT LAB/LABSPEC RUQ PAIN E ORDERS 3 M FU LEFT SIDE NECK SWELLING pre op RUQ PAIN FLANK 2 WK FU BILAT CARPAL TUNNEL SYNDROME CERVICAL SPINE BACK PAIN xray BACK BACK PAIN BACK BACK TVH, BS TVH, BS TVH, BS incision pain HYSTERECTOMY PAIN 2 wk TVHBS/needs sign title 19 POST OP ABSCESS POST OP ABSCESS POST OP ABSCESS POST OP ABSCESS POST OP ABSCESS NUMBNESS Reason for Visit Early satiety MARCELINO (nonalcoholic steatohepatitis) Chronic RUQ pain Type 2 diabetes mellitus Localized swelling, mass and lump, neck Obesity Almaz's thyroiditis Metabolic syndrome Menorrhagia with irregular cycle NAFLD (nonalcoholic fatty liver disease) Fibromyalgia affecting multiple sites Meralgia paresthetica of left side Sciatica, right side Strain of lumbar region Low back pain Chronic low back pain Fibromyalgia S/P vaginal hysterectomy Type 2 diabetes mellitus Hypertension Metabolic syndrome PCOS (polycystic ovarian syndrome) Menorrhagia with irregular cycle Postoperative pain Postoperative pain Urinary hesitancy Class II obesity Fibromyalgia affecting multiple sites MARCELINO (nonalcoholic steatohepatitis) Postoperative abscess Postoperative pain S/P vaginal hysterectomy Sciatica, right side Type 2 diabetes mellitus Chronic back pain Generalized anxiety disorder with panic attacks Almaz's thyroiditis Hypertension Metabolic syndrome PCOS (polycystic ovarian syndrome) Personal history of malignant melanoma Tobacco abuse Abdominal pain Chest pain History of hypertension Chief Complaint 3 M FU LEFT SIDE NECK SWELLING pre op RUQ PAIN FLANK 2 WK FU BILAT CARPAL TUNNEL SYNDROME CERVICAL SPINE BACK PAIN xray BACK BACK PAIN BACK BACK TVH, BS TVH, BS TVH, BS incision pain HYSTERECTOMY PAIN 2 wk TVHBS/needs sign title 19 POST OP ABSCESS POST OP ABSCESS POST OP ABSCESS POST OP ABSCESS POST OP ABSCESS NUMBNESS POST OP ABSCESS post op abcess f/u per SM 6wk fu abdominal Reason for Visit Type 2 diabetes nancy itus Localized swelling, mass and lump, neck Obesity Almaz's thyroiditis Metabolic syndrome Menorrhagia with irregular cycle NAFLD (nonalcoholic fatty liver disease) Fibromyalgia affecting multiple sites Meralgia paresthetica of left side Sciatica, right side Strain of lumbar region Low back pain Chronic low back pain Fibromyalgia S/P vaginal hysterectomy Type 2 diabetes mellitus Hypertension Metabolic syndrome PCOS (polycystic ovarian syndrome) Menorrhagia with irregular cycle Postoperative pain Postoperative pain Urinary hesitancy Class II obesity Fibromyalgia affecting multiple sites MARCELINO (nonalcoholic steatohepatitis) Postoperative abscess Postoperative pain S/P vaginal hysterectomy Sciatica, right side Type 2 diabetes mellitus Chronic back pain Generalized anxiety disorder with panic attacks Almaz's thyroiditis Hypertension Metabolic syndrome PCOS (polycystic ovarian syndrome) Personal history of malignant melanoma Tobacco abuse Abdominal pain Chest pain History of hypertension Postoperative abscess Postoperative abscess Postoperative pain S/P vaginal hysterectomy Chief Complaint LEFT SIDE NECK SWELL ING pre op RUQ PAIN FLANK 2 WK FU BILAT CARPAL TUNNEL SYNDROME CERVICAL SPINE BACK PAIN xray BACK BACK PAIN BACK BACK TVH, BS TVH, BS TVH, BS incision pain HYSTERECTOMY PAIN 2 wk TVHBS/needs sign title 19 POST OP ABSCESS POST OP ABSCESS POST OP ABSCESS POST OP ABSCESS POST OP ABSCESS NUMBNESS POST OP ABSCESS post op abcess f/u per SM 6wk fu abdominal 3 M FU POST OP FU ABD PAIN Reason for Visit Almaz's thyroidi tis Metabolic syndrome Menorrhagia with irregular cycle NAFLD (nonalcoholic fatty liver disease) Fibromyalgia affecting multiple sites Meralgia paresthetica of left side Sciatica, right side Strain of lumbar region Low back pain Chronic low back pain Fibromyalgia S/P vaginal hysterectomy Type 2 diabetes mellitus Hypertension Metabolic syndrome PCOS (polycystic ovarian syndrome) Menorrhagia with irregular cycle Postoperative pain Postoperative pain Urinary hesitancy Class II obesity Fibromyalgia affecting multiple sites MARCELINO (nonalcoholic steatohepatitis) Postoperative abscess Postoperative pain S/P vaginal hysterectomy Sciatica, right side Type 2 diabetes mellitus Chronic back pain Generalized anxiety disorder with panic attacks Almaz's thyroiditis Hypertension Metabolic syndrome PCOS (polycystic ovarian syndrome) Personal history of malignant melanoma Tobacco abuse Abdominal pain Chest pain History of hypertension Postoperative abscess Postoperative abscess Postoperative pain S/P vaginal hysterectomy Nicotine dependence, cigarettes, uncomplicated Ovarian cyst Postoperative abscess Postoperative pain Almaz's thyroiditis Hypertension Vitamin d deficiency Fatigue Varicose vein of leg Chief Complaint pre op RUQ PAIN FLANK 2 WK FU BILAT CARPAL TUNNEL SYNDROME CERVICAL SPINE BACK PAIN xray BACK BACK PAIN BACK BACK TVH, BS TVH, BS TVH, BS incision pain HYSTERECTOMY PAIN 2 wk TVHBS/needs sign title 19 POST OP ABSCESS POST OP ABSCESS POST OP ABSCESS POST OP ABSCESS POST OP ABSCESS NUMBNESS POST OP ABSCESS post op abcess f/u per SM 6wk fu abdominal 3 M FU POST OP FU ABD PAIN Reason for Visit Almaz's thyroidi tis Metabolic syndrome Menorrhagia with irregular cycle NAFLD (nonalcoholic fatty liver disease) Fibromyalgia affecting multiple sites Meralgia paresthetica of left side Sciatica, right side Strain of lumbar region Low back pain Chronic low back pain Fibromyalgia S/P vaginal hysterectomy Type 2 diabetes mellitus Hypertension Metabolic syndrome PCOS (polycystic ovarian syndrome) Menorrhagia with irregular cycle Postoperative pain Postoperative pain Urinary hesitancy Class II obesity Fibromyalgia affecting multiple sites MARCELINO (nonalcoholic steatohepatitis) Postoperative abscess Postoperative pain S/P vaginal hysterectomy Sciatica, right side Type 2 diabetes mellitus Chronic back pain Generalized anxiety disorder with panic attacks Almaz's thyroiditis Hypertension Metabolic syndrome PCOS (polycystic ovarian syndrome) Personal history of malignant melanoma Tobacco abuse Abdominal pain Chest pain History of hypertension Postoperative abscess Postoperative abscess Postoperative pain S/P vaginal hysterectomy Nicotine dependence, cigarettes, uncomplicated Ovarian cyst Postoperative abscess Postoperative pain Almaz's thyroiditis Hypertension Vitamin d deficiency Fatigue Varicose vein of leg Chief Complaint BACK BACK TVH, BS TVH, BS TVH, BS incision pain HYSTERECTOMY PAIN 2 wk TVHBS/needs sign title 19 POST OP ABSCESS POST OP ABSCESS POST OP ABSCESS POST OP ABSCESS CP POST OP ABSCESS NUMBNESS POST OP ABSCESS post op abcess f/u per SM 6wk fu abdominal 3 M FU POST OP FU ABD PAIN OVARIAN CYST ER FU FOR OVARIAN CYST Reason for Visit S/P vaginal hysterec carey Type 2 diabetes mellitus Hypertension Metabolic syndrome PCOS (polycystic ovarian syndrome) Menorrhagia with irregular cycle Postoperative pain Postoperative pain Urinary hesitancy Class II obesity Fibromyalgia affecting multiple sites MARCELINO (nonalcoholic steatohepatitis) Postoperative abscess Postoperative pain S/P vaginal hysterectomy Sciatica, right side Type 2 diabetes mellitus Chronic back pain Generalized anxiety disorder with panic attacks Almaz's thyroiditis Hypertension Metabolic syndrome PCOS (polycystic ovarian syndrome) Personal history of malignant melanoma Tobacco abuse Abdominal pain Chest pain History of hypertension Postoperative abscess Postoperative abscess Postoperative pain S/P vaginal hysterectomy Nicotine dependence, cigarettes, uncomplicated Ovarian cyst Postoperative abscess Postoperative pain Almaz's thyroiditis Hypertension Vitamin d deficiency Fatigue Varicose vein of leg Ovarian cyst Acute bronchitis Chief Complaint TVH, BS TVH, BS TVH, BS incision pain HYSTERECTOMY PAIN 2 wk TVHBS/needs sign title 19 POST OP ABSCESS POST OP ABSCESS POST OP ABSCESS POST OP ABSCESS CP POST OP ABSCESS NUMBNESS POST OP ABSCESS post op abcess f/u per SM 6wk fu abdominal 3 M FU POST OP FU ABD PAIN OVARIAN CYST ER FU FOR OVARIAN CYST PELVIC PAIN FU CHEST PAIN Reason for Visit S/P vaginal hysterec carey Type 2 diabetes mellitus Hypertension Metabolic syndrome PCOS (polycystic ovarian syndrome) Menorrhagia with irregular cycle Postoperative pain Postoperative pain Urinary hesitancy Class II obesity Fibromyalgia affecting multiple sites MARCEILNO (nonalcoholic steatohepatitis) Postoperative abscess Postoperative pain S/P vaginal hysterectomy Sciatica, right side Type 2 diabetes mellitus Chronic back pain Generalized anxiety disorder with panic attacks Almaz's thyroiditis Hypertension Metabolic syndrome PCOS (polycystic ovarian syndrome) Personal history of malignant melanoma Tobacco abuse Abdominal pain Chest pain History of hypertension Postoperative abscess Postoperative abscess Postoperative pain S/P vaginal hysterectomy Nicotine dependence, cigarettes, uncomplicated Ovarian cyst Postoperative abscess Postoperative pain Almaz's thyroiditis Hypertension Vitamin d deficiency Fatigue Varicose vein of leg Ovarian cyst Acute bronchitis NAFLD (nonalcoholic fatty liver disease) RUQ abdominal pain Chief Complaint TVH, BS TVH, BS incision pain HYSTERECTOMY PAIN 2 wk TVHBS/needs sign title 19 POST OP ABSCESS POST OP ABSCESS POST OP ABSCESS POST OP ABSCESS CP POST OP ABSCESS NUMBNESS POST OP ABSCESS post op abcess f/u per SM 6wk fu abdominal 3 M FU POST OP FU ABD PAIN OVARIAN CYST ER FU FOR OVARIAN CYST PELVIC PAIN FU CHEST PAIN Reason for Visit S/P vaginal hysterec carey Type 2 diabetes mellitus Hypertension Metabolic syndrome PCOS (polycystic ovarian syndrome) Menorrhagia with irregular cycle Postoperative pain Postoperative pain Urinary hesitancy Class II obesity Fibromyalgia affecting multiple sites MARCELINO (nonalcoholic steatohepatitis) Postoperative abscess Postoperative pain S/P vaginal hysterectomy Sciatica, right side Type 2 diabetes mellitus Chronic back pain Generalized anxiety disorder with panic attacks Almaz's thyroiditis Hypertension Metabolic syndrome PCOS (polycystic ovarian syndrome) Personal history of malignant melanoma Tobacco abuse Abdominal pain Chest pain History of hypertension Postoperative abscess Postoperative abscess Postoperative pain S/P vaginal hysterectomy Nicotine dependence, cigarettes, uncomplicated Ovarian cyst Postoperative abscess Postoperative pain Almaz's thyroiditis Hypertension Vitamin d deficiency Fatigue Varicose vein of leg Ovarian cyst Acute bronchitis NAFLD (nonalcoholic fatty liver disease) RUQ abdominal pain Chief Complaint 2 wk TVHBS/needs sig n title 19 POST OP ABSCESS POST OP ABSCESS POST OP ABSCESS POST OP ABSCESS CP POST OP ABSCESS NUMBNESS POST OP ABSCESS post op abcess f/u per SM 6wk fu abdominal 3 M FU POST OP FU ABD PAIN OVARIAN CYST ER FU FOR OVARIAN CYST PELVIC PAIN FU CHEST PAIN RUQ ABDOMINAL PAIN Reason for Visit Postoperative pain Urinary hesitancy Class II obesity Fibromyalgia affecting multiple sites MARCELINO (nonalcoholic steatohepatitis) Postoperative abscess Postoperative pain S/P vaginal hysterectomy Sciatica, right side Type 2 diabetes mellitus Chronic back pain Generalized anxiety disorder with panic attacks Almaz's thyroiditis Hypertension Metabolic syndrome PCOS (polycystic ovarian syndrome) Personal history of malignant melanoma Tobacco abuse Abdominal pain Chest pain History of hypertension Postoperative abscess Postoperative abscess Postoperative pain S/P vaginal hysterectomy Nicotine dependence, cigarettes, uncomplicated Ovarian cyst Postoperative abscess Postoperative pain Almaz's thyroiditis Hypertension Vitamin d deficiency Fatigue Varicose vein of leg Ovarian cyst Acute bronchitis NAFLD (nonalcoholic fatty liver disease) RUQ abdominal pain Chief Complaint OVARIAN CYST ER FU FOR OVARIAN CYST PELVIC PAIN FU CHEST PAIN RUQ ABDOMINAL PAIN BREAST PAIN CHEST PAIN LEFT ARM NUMBNESS [place] Test Result RIGHT LEG PAIN 3 M FU LEFT ARM room 1 PELVIC PAIN Reason for Visit Ovarian cyst Acute bronchitis NAFLD (nonalcoholic fatty liver disease) RUQ abdominal pain Pectoralis muscle strain Cough Anxiety and depression Hypertension Left shoulder pain Left shoulder pain Chief Complaint PELVIC PAIN FU CHEST PAIN RUQ ABDOMINAL PAIN BREAST PAIN CHEST PAIN LEFT ARM NUMBNESS [place] Test Result RIGHT LEG PAIN 3 M FU LEFT ARM room 1 PELVIC PAIN RIGHT HAND ABD PAIN Reason for Visit NAFLD (nonalcoholic fatty liver disease) RUQ abdominal pain Pectoralis muscle strain Cough Anxiety and depression Hypertension Left shoulder pain Left shoulder pain Carpal tunnel syndrome of right wrist Chief Complaint RUQ ABDOMINAL PAIN BREAST PAIN CHEST PAIN LEFT ARM NUMBNESS [place] Test Result RIGHT LEG PAIN 3 M FU LEFT ARM room 1 PELVIC PAIN RIGHT HAND ABD PAIN right wrist ABD PAIN Reason for Visit Pectoralis muscle st rain Cough Anxiety and depression Hypertension Left shoulder pain Left shoulder pain Carpal tunnel syndrome of right wrist Carpal tunnel syndrome of right wrist Chief Complaint BREAST PAIN CHEST PAIN LEFT ARM NUMBNESS [place] Test Result RIGHT LEG PAIN 3 M FU LEFT ARM room 1 PELVIC PAIN RIGHT HAND ABD PAIN right wrist ABD PAIN FATTY LIVER Right upper quadrant pain 2 MO FU Reason for Visit Pectoralis muscle st rain Cough Anxiety and depression Hypertension Left shoulder pain Left shoulder pain Carpal tunnel syndrome of right wrist Carpal tunnel syndrome of right wrist NAFLD (nonalcoholic fatty liver disease) RUQ abdominal pain Chief Complaint Test Result RIGHT LEG PAIN 3 M FU LEFT ARM room 1 PELVIC PAIN RIGHT HAND ABD PAIN right wrist ABD PAIN FATTY LIVER Right upper quadrant pain 2 MO FU PELVIC AND PERINEAL PAIN discuss starting [place] sore bump on labia Reason for Visit Cough Anxiety and depression Hypertension Left shoulder pain Left shoulder pain Carpal tunnel syndrome of right wrist Carpal tunnel syndrome of right wrist NAFLD (nonalcoholic fatty liver disease) RUQ abdominal pain Hemorrhagic ovarian cyst Pelvic pain PCOS (polycystic ovarian syndrome) Inclusion cyst of vulva Possible exposure to STD Chief Complaint 3 M FU LEFT ARM room 1 PELVIC PAIN RIGHT HAND ABD PAIN right wrist ABD PAIN FATTY LIVER Right upper quadrant pain 2 MO FU PELVIC AND PERINEAL PAIN discuss starting [place] sore bump on labia CHEST OTHER Reason for Visit Anxiety and depressi on Hypertension Left shoulder pain Left shoulder pain Carpal tunnel syndrome of right wrist Carpal tunnel syndrome of right wrist NAFLD (nonalcoholic fatty liver disease) RUQ abdominal pain Hemorrhagic ovarian cyst Pelvic pain PCOS (polycystic ovarian syndrome) Inclusion cyst of vulva Possible exposure to STD Chief Complaint PELVIC PAIN RIGHT HAND ABD PAIN right wrist ABD PAIN FATTY LIVER Right upper quadrant pain 2 MO FU PELVIC AND PERINEAL PAIN discuss starting [place] sore bump on labia CHEST OTHER MED CHECK PELVIC PAIN Reason for Visit Carpal tunnel syndro me of right wrist Carpal tunnel syndrome of right wrist NAFLD (nonalcoholic fatty liver disease) RUQ abdominal pain Hemorrhagic ovarian cyst Pelvic pain PCOS (polycystic ovarian syndrome) Inclusion cyst of vulva Possible exposure to STD Dermatitis Anxiety and depression Hypertension Chief Complaint RIGHT HAND ABD PAIN right wrist ABD PAIN FATTY LIVER Right upper quadrant pain 2 MO FU PELVIC AND PERINEAL PAIN discuss starting [place] sore bump on labia CHEST OTHER MED CHECK PELVIC PAIN ABD PAIN Reason for Visit Carpal tunnel syndro me of right wrist Carpal tunnel syndrome of right wrist NAFLD (nonalcoholic fatty liver disease) RUQ abdominal pain Hemorrhagic ovarian cyst Pelvic pain PCOS (polycystic ovarian syndrome) Inclusion cyst of vulva Possible exposure to STD Dermatitis Anxiety and depression Hypertension Chief Complaint RIGHT HAND ABD PAIN right wrist ABD PAIN FATTY LIVER Right upper quadrant pain 2 MO FU PELVIC AND PERINEAL PAIN discuss starting [place] sore bump on labia CHEST OTHER MED CHECK PELVIC PAIN ABD PAIN ED follow up/jimmie cyst 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 Room 5 right open carpal tunnel release right open carpal tunnel release Reason for Visit Carpal tunnel syndro me of right wrist Carpal tunnel syndrome of right wrist NAFLD (nonalcoholic fatty liver disease) RUQ abdominal pain Hemorrhagic ovarian cyst Pelvic pain PCOS (polycystic ovarian syndrome) Inclusion cyst of vulva Possible exposure to STD Dermatitis Anxiety and depression Hypertension Class II obesity Hemorrhagic ovarian cyst Left inguinal pain Type 2 diabetes mellitus Tobacco abuse Herniated nucleus pulposus, C4-5 left Lumbar facet joint syndrome Chief Complaint ABD PAIN right wrist ABD PAIN FATTY LIVER Right upper quadrant pain 2 MO FU PELVIC AND PERINEAL PAIN discuss starting [place] sore bump on labia CHEST OTHER MED CHECK PELVIC PAIN ABD PAIN ED follow up/jimmie cyst 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 Room 5 right open carpal tunnel release right open carpal tunnel release RIGHT WRIST RIGHT WRIST E ORDER CONCERN FOR BRONCHITIS Reason for Visit Carpal tunnel syndro me of right wrist NAFLD (nonalcoholic fatty liver disease) RUQ abdominal pain Hemorrhagic ovarian cyst Pelvic pain PCOS (polycystic ovarian syndrome) Inclusion cyst of vulva Possible exposure to STD Dermatitis Anxiety and depression Hypertension Class II obesity Hemorrhagic ovarian cyst Type 2 diabetes mellitus Tobacco abuse Herniated nucleus pulposus, C4-5 left Lumbar facet joint syndrome Orthopedic aftercare Orthopedic aftercare Contact with or exposure to other viral diseases Acute sinusitis, unspecified Chief Complaint right wrist ABD PAIN FATTY LIVER Right upper quadrant pain 2 MO FU PELVIC AND PERINEAL PAIN discuss starting [place] sore bump on labia CHEST OTHER MED CHECK PELVIC PAIN ABD PAIN ED follow up/jimmie cyst 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 Room 5 right open carpal tunnel release right open carpal tunnel release RIGHT WRIST RIGHT WRIST E ORDER CONCERN FOR BRONCHITIS Localized enlarged lymph nodes Reason for Visit Carpal tunnel syndro me of right wrist NAFLD (nonalcoholic fatty liver disease) RUQ abdominal pain Hemorrhagic ovarian cyst Pelvic pain PCOS (polycystic ovarian syndrome) Inclusion cyst of vulva Possible exposure to STD Dermatitis Anxiety and depression Hypertension Class II obesity Hemorrhagic ovarian cyst Type 2 diabetes mellitus Tobacco abuse Herniated nucleus pulposus, C4-5 left Lumbar facet joint syndrome Orthopedic aftercare Orthopedic aftercare Contact with or exposure to other viral diseases Acute sinusitis, unspecified Chief Complaint 2 MO FU PELVIC AND PERINEAL PAIN discuss starting [place] sore bump on labia CHEST OTHER MED CHECK PELVIC PAIN ABD PAIN ED follow up/jimmie cyst 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 Room 5 right open carpal tunnel release right open carpal tunnel release RIGHT WRIST RIGHT WRIST E ORDER CONCERN FOR BRONCHITIS Localized enlarged lymph nodes RIGHT HAND CARPAL TUNNEL RX HERE E ORDERS Reason for Visit NAFLD (nonalcoholic fatty liver disease) RUQ abdominal pain Hemorrhagic ovarian cyst Pelvic pain PCOS (polycystic ovarian syndrome) Inclusion cyst of vulva Possible exposure to STD Dermatitis Anxiety and depression Hypertension Class II obesity Hemorrhagic ovarian cyst Type 2 diabetes mellitus Tobacco abuse Herniated nucleus pulposus, C4-5 left Lumbar facet joint syndrome Orthopedic aftercare Orthopedic aftercare Contact with or exposure to other viral diseases Acute sinusitis, unspecified Orthopedic aftercare Chief Complaint PELVIC AND PERINEAL PAIN discuss starting [place] sore bump on labia CHEST OTHER MED CHECK PELVIC PAIN ABD PAIN ED follow up/jimmie cyst 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 Room 5 right open carpal tunnel release right open carpal tunnel release RIGHT WRIST RIGHT WRIST E ORDER CONCERN FOR BRONCHITIS Localized enlarged lymph nodes RIGHT HAND CARPAL TUNNEL RX HERE E ORDERS Reason for Visit Hemorrhagic ovarian cyst Pelvic pain PCOS (polycystic ovarian syndrome) Inclusion cyst of vulva Possible exposure to STD Dermatitis Anxiety and depression Hypertension Class II obesity Hemorrhagic ovarian cyst Type 2 diabetes mellitus Tobacco abuse Herniated nucleus pulposus, C4-5 left Lumbar facet joint syndrome Orthopedic aftercare Orthopedic aftercare Contact with or exposure to other viral diseases Acute sinusitis, unspecified Orthopedic aftercare Chief Complaint sore bump on labia CHEST OTHER MED CHECK PELVIC PAIN ABD PAIN ED follow up/jimmie cyst 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 Room 5 right open carpal tunnel release right open carpal tunnel release RIGHT WRIST RIGHT WRIST E ORDER CONCERN FOR BRONCHITIS Localized enlarged lymph nodes RIGHT HAND CARPAL TUNNEL RX HERE E ORDERS right breast pain RIGHT BREAST PAIN Reason for Visit Inclusion cyst of vu lva Possible exposure to STD Dermatitis Anxiety and depression Hypertension Class II obesity Hemorrhagic ovarian cyst Type 2 diabetes mellitus Tobacco abuse Herniated nucleus pulposus, C4-5 left Lumbar facet joint syndrome Orthopedic aftercare Orthopedic aftercare Contact with or exposure to other viral diseases Acute sinusitis, unspecified Orthopedic aftercare Climacteric Mastalgia Chief Complaint CHEST OTHER MED CHECK PELVIC PAIN ABD PAIN ED follow up/jimmie cyst 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 Room 5 right open carpal tunnel release right open carpal tunnel release RIGHT WRIST RIGHT WRIST E ORDER CONCERN FOR BRONCHITIS Localized enlarged lymph nodes RIGHT HAND CARPAL TUNNEL RX HERE E ORDERS right breast pain RIGHT BREAST PAIN LEG PAIN Reason for Visit Dermatitis Anxiety and depression Hypertension Class II obesity Hemorrhagic ovarian cyst Type 2 diabetes mellitus Tobacco abuse Herniated nucleus pulposus, C4-5 left Lumbar facet joint syndrome Orthopedic aftercare Orthopedic aftercare Contact with or exposure to other viral diseases Acute sinusitis, unspecified Orthopedic aftercare Climacteric Mastalgia Chief Complaint PELVIC PAIN ABD PAIN ED follow up/jimmie cyst 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 Room 5 right open carpal tunnel release right open carpal tunnel release RIGHT WRIST RIGHT WRIST E ORDER CONCERN FOR BRONCHITIS Localized enlarged lymph nodes RIGHT HAND CARPAL TUNNEL RX HERE E ORDERS right breast pain RIGHT BREAST PAIN LEG PAIN 3 m fu 5 MO FU EYE NAFLD Reason for Visit Hemorrhagic ovarian cyst Type 2 diabetes mellitus Class II obesity Tobacco abuse Herniated nucleus pulposus, C4-5 left Lumbar facet joint syndrome Orthopedic aftercare Orthopedic aftercare Contact with or exposure to other viral diseases Acute sinusitis, unspecified Orthopedic aftercare Climacteric Mastalgia Type 2 diabetes mellitus Class II obesity Hypertension NAFLD (nonalcoholic fatty liver disease) RUQ abdominal pain Chief Complaint CARPAL TUNNEL RX HER E E ORDERS right breast pain RIGHT BREAST PAIN LEG PAIN 3 m fu 5 MO FU EYE NAFLD NECK ACUTE W[facility] FU CERVICAL SPINE SORE THROAT vaginal dryness, itching leg Reason for Visit Climacteric Mastalgia Type 2 diabetes mellitus Class II obesity Hypertension NAFLD (nonalcoholic fatty liver disease) RUQ abdominal pain Herniated nucleus pulposus, C4-5 left Left-sided low back pain with left-sided sciatica Pain, dental Radiculopathy due to disorder of intervertebral disc of lumbar spine Dental infection Hemorrhagic ovarian cyst Pelvic pain Vaginitis Chief Complaint right breast pain RIGHT BREAST PAIN LEG PAIN 3 m fu 5 MO FU EYE NAFLD NECK ACUTE [facility] FU CERVICAL SPINE SORE THROAT vaginal dryness, itching leg PELVIC PAIN gu s/s, pelvic pain, flank pain Reason for Visit Climacteric Mastalgia Type 2 diabetes mellitus Class II obesity Hypertension NAFLD (nonalcoholic fatty liver disease) RUQ abdominal pain Herniated nucleus pulposus, C4-5 left Left-sided low back pain with left-sided sciatica Pain, dental Radiculopathy due to disorder of intervertebral disc of lumbar spine Dental infection Hemorrhagic ovarian cyst Pelvic pain Vaginitis Chief Complaint 3 m fu 5 MO FU EYE NAFLD NECK ACUTE W[facility] FU CERVICAL SPINE SORE THROAT vaginal dryness, itching leg PELVIC PAIN gu s/s, pelvic pain, flank pain CERVICAL RAD Reason for Visit Type 2 diabetes nancy itus Class II obesity Hypertension NAFLD (nonalcoholic fatty liver disease) RUQ abdominal pain Herniated nucleus pulposus, C4-5 left Left-sided low back pain with left-sided sciatica Pain, dental Radiculopathy due to disorder of intervertebral disc of lumbar spine Dental infection Hemorrhagic ovarian cyst Pelvic pain Vaginitis Chief Complaint NAFLD NECK ACUTE [facility] FU CERVICAL SPINE SORE THROAT vaginal dryness, itching leg PELVIC PAIN gu s/s, pelvic pain, flank pain CERVICAL RAD CERVICAL SPINE LEFT WRIST PHARYNGITIS 3 MO FU 1 VISIT 60 MIN STD CHECK Reason for Visit Herniated nucleus pu lposus, C4-5 left Left-sided low back pain with left-sided sciatica Pain, dental Radiculopathy due to disorder of intervertebral disc of lumbar spine Dental infection Hemorrhagic ovarian cyst Pelvic pain Vaginitis Carpal tunnel syndrome of left wrist Cubital tunnel syndrome on left Herniated nucleus pulposus, C4-5 Carpal tunnel syndrome of left wrist Cubital tunnel syndrome on left NAFLD (nonalcoholic fatty liver disease) RUQ abdominal pain Vaginitis Chief Complaint NAFLD NECK ACUTE [facility] FU CERVICAL SPINE SORE THROAT vaginal dryness, itching leg PELVIC PAIN gu s/s, pelvic pain, flank pain CERVICAL RAD CERVICAL SPINE LEFT WRIST PHARYNGITIS 3 MO FU 1 VISIT 60 MIN STD CHECK MED DISCUSSION-SEMAGLUTIDE Reason for Visit Herniated nucleus pu lposus, C4-5 left Left-sided low back pain with left-sided sciatica Pain, dental Radiculopathy due to disorder of intervertebral disc of lumbar spine Dental infection Hemorrhagic ovarian cyst Pelvic pain Vaginitis Carpal tunnel syndrome of left wrist Cubital tunnel syndrome on left Herniated nucleus pulposus, C4-5 Carpal tunnel syndrome of left wrist Cubital tunnel syndrome on left NAFLD (nonalcoholic fatty liver disease) RUQ abdominal pain Vaginitis Class II obesity Chief Complaint NECK ACUTE [facility] FU CERVICAL SPINE SORE THROAT vaginal dryness, itching leg PELVIC PAIN gu s/s, pelvic pain, flank pain CERVICAL RAD CERVICAL SPINE LEFT WRIST PHARYNGITIS 3 MO FU 1 VISIT 60 MIN STD CHECK MED DISCUSSION-SEMAGLUTIDE SWOLLEN LYMPH NODES IN NECK pain in rt breast MASTODYNIA THROAT Reason for Visit Herniated nucleus pu lposus, C4-5 left Left-sided low back pain with left-sided sciatica Pain, dental Radiculopathy due to disorder of intervertebral disc of lumbar spine Dental infection Hemorrhagic ovarian cyst Pelvic pain Vaginitis Carpal tunnel syndrome of left wrist Cubital tunnel syndrome on left Herniated nucleus pulposus, C4-5 Carpal tunnel syndrome of left wrist Cubital tunnel syndrome on left NAFLD (nonalcoholic fatty liver disease) RUQ abdominal pain Vaginitis Class II obesity Acute pharyngitis Acute pharyngitis Breast pain, right Chief Complaint MED CHECK PELVIC PAIN ABD PAIN ED follow up/jimmie cyst 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 Room 5 right open carpal tunnel release right open carpal tunnel release RIGHT WRIST RIGHT WRIST E ORDER CONCERN FOR BRONCHITIS Localized enlarged lymph nodes RIGHT HAND CARPAL TUNNEL RX HERE E ORDERS right breast pain RIGHT BREAST PAIN LEG PAIN 3 m fu 5 MO FU EYE Reason for Visit Dermatitis Anxiety and depression Hypertension Hemorrhagic ovarian cyst Type 2 diabetes mellitus Class II obesity Tobacco abuse Herniated nucleus pulposus, C4-5 left Lumbar facet joint syndrome Orthopedic aftercare Orthopedic aftercare Contact with or exposure to other viral diseases Acute sinusitis, unspecified Orthopedic aftercare Climacteric Mastalgia Type 2 diabetes mellitus Class II obesity Hypertension NAFLD (nonalcoholic fatty liver disease) RUQ abdominal pain Reason for Referral Specialty Diagnoses / Procedures Referred By Elaina wyman Referred To Contact Emission Technician Diagnoses Pelvic pain in female Procedures CONSULT TO GYNECOLOGY Lukasz Eubanks MD [address] [place] [address] Fatmata England DO [address] [facility] [address] [place] [address] Referral ID Status Reason Start Date Expiration Date Visits Requested Visits Authorized [id number] Ref Not Required PCP Requested Referral 11/17/2022 11/16/2023 1 1 Additional Source Comments INFORMATION SOURCE (unrecogn ized section and content) DATE CREATED AUTHOR 11/15/[address] [facility] DATE CREATED AUTHOR AUTHOR'S ORGANIZ ATION 11/29/2017 [facility] DATE CREATED AUTHOR AUTHOR'S ORGANIZ ATION 07/07/2022 [facility] DATE CREATED AUTHOR AUTHOR'S ORGANIZ ATION 07/21/2022 [facility] DATE CREATED AUTHOR AUTHOR'S ORGANIZ ATION 10/11/2022 [facility] ([place] DATE CREATED AUTHOR AUTHOR'S ORGANIZ ATION 04/14/2023 [facility] DATE CREATED AUTHOR AUTHOR'S ORGANIZ ATION 07/09/2023 [facility] DATE CREATED AUTHOR AUTHOR'S ORGANIZ ATION 08/30/2023 [facility] DATE CREATED AUTHOR AUTHOR'S ORGANIZ ATION [facility] DATE CREATED AUTHOR AUTHOR'S ORGANIZ ATION 10/16/2024 [facility] DATE CREATED AUTHOR AUTHOR'S ORGANIZ ATION 10/29/2024 [facility] Goals (unrecognized section and content) Goals may be documented in a n alternate sectionGoals may be documented in an alternate sectionGoals may be documented in an alternate sectionGoals may be documented in an alternate sectionGoals may be documented in an alternate sectionGoals may be documented in an alternate sectionGoals may be documented in an alternate sectionGoals may be documented in an alternate sectionGoals may be documented in an alternate sectionGoals may be documented in an alternate sectionGoals may be documented in an alternate sectionGoals may be documented in an alternate sectionGoals may be documented in an alternate sectionGoals may be documented in an alternate section No data available for this sectionGoals may be documented in an alternate sectionGoals may be documented in an alternate sectionGoals may be documented in an alternate sectionGoals may be documented in an alternate sectionGoals may be documented in an alternate sectionGoals may be documented in an alternate sectionGoals may be documented in an alternate sectionGoals may be documented in an alternate sectionGoals may be documented in an alternate sectionGoals may be documented in an alternate sectionGoals may be documented in an alternate sectionGoals may be documented in an alternate sectionGoals may be documented in an alternate sectionGoals may be documented in an alternate sectionGoals may be documented in an alternate sectionGoals may be documented in an alternate section Care Teams (unrecognized sec tion and content) Team Status: Active Member Role Status Dates Dr. Nima Kaur MD Family Provider Active Dr. Aleena London MD Primary Care Provider Active Team Status: Inactive Member Role Status Dates Dr. Aleena London MD Primary Care Provider, Refer ring Provider Active Rea Poon CLINICAL SUPPORT MANAGER, CLINICAL SUPPORT MANAGER-C Attending Provider Active Team Status: Inactive Member Role Status Dates Dr. Aleena London MD Primary Care Provider, Refer ring Provider Active Dr. Cassidy Moore MD Attending Provider Active Team Status: Inactive Member Role Status Dates Dr. Aleena London MD Primary Care Provider, Refer ring Provider Active Dr. Mo Washington DO Attending Provider Active Team Status: Inactive Member Role Status Dates Dr. Aleena London MD Primary Care Provider, Refer ring Provider Active Antonio Kee PA, PA Attending Provider Active Team Status: Inactive Member Role Status Dates Dr. Aleena London MD Primary Care Provider Active Dr. Jossue Sanchez MD Attending Provider Active Team Status: Inactive Member Role Status Dates Dr. Aleena London MD Primary Care Provider, Refer ring Provider Active Libertad Stubbs CLINICAL SUPPORT MANAGER, CLINICAL SUPPORT MANAGER-C Attending Provider Active Team Status: Active Member Role Status Dates Dr. Aleena London MD Primary Care Provider Active Dr. Jossue Sanchez MD Attending Provider Active Dr. Cassidy Moore MD Referring Provider Active Team Status: Active Member Role Status Dates Dr. Aleena London MD Primary Care Provider Active Dr. Cassidy Moore MD Admit Provid er, Attending Provider, Referring Provider, Other Provider Active Team Status: Inactive Member Role Status Dates Dr. Aleena London MD Primary Care Provider, Refer ring Provider Active Dr. Dimple Lynn DO Attending Provider Activ e Team Status: Active Member Role Status Dates Dr. Aleena London MD Primary Care Provider Active Dr. Adele Aguila DO Emergency Provider Active Dr. Cassidy Moore MD Admit Provid er, Attending Provider, Other Provider Active Team Status: Active Member Role Status Dates Dr. Aleena London MD Primary Care Provider Active Dr. Adele Aguila DO Emergency Provider Active Dr. Cassidy Moore MD Admit Provider, Other Prov ider Active Dr. Christiano Eduardo MD Other Provider Active Dr. Dimple Lynn DO Attending Provider Activ e Team Status: Active Member Role Status Dates Dr. Aleena London MD Primary Care Provider Active Dr. Adele Aguila DO Emergency Provider Active Dr. Cassidy Moore MD Admit Provid er, Attending Provider, Other Provider Active Dr. Christiano Eduardo MD Other Provider Active Team Status: Inactive Member Role Status Dates Dr. Aleena London MD Primary Care Provider, Refer ring Provider Active Dr. Epifanio Kong DO Attending Provider Active Team Status: Inactive Member Role Status Dates Dr. Aleena London MD Primary Care Provider, Refer ring Provider Active ADRI Botello Attending Provider Active Team Status: Inactive Member Role Status Dates Dr. Aleena London MD Primary Care Provider Active Dr. Earnest Haynes MD Attending Provider, Referring Provider Active Team Status: Inactive Member Role Status Dates Dr. Aleena London MD Primary Care Provider Active Dr. Cassidy Moore MD Admit Provid er, Attending Provider, Referring Provider Active Team Status: Inactive Member Role Status Dates Dr. Aleena London MD Primary Care Provider Active Rea Poon CLINICAL SUPPORT MANAGER, CLINICAL SUPPORT MANAGER-C Attending Provider, Referrin g Provider Active Dr. Cassidy Moore MD Other Provider Active Team Status: Inactive Member Role Status Dates Dr. Aleena London MD Primary Care P rovider, Attending Provider, Referring Provider Active Team Status: Inactive Member Role Status Dates Dr. Aleena London MD Primary Care Provider Active Dr. Drake Guzman DO Attending Provider, Emergency Provide r Active Team Status: Inactive Member Role Status Dates Dr. Aleena London MD Primary Care Provider Active Dr. Greg Melgar DO Attending Provider, Emergency P rovider Active Team Status: Inactive Member Role Status Dates Dr. Aleena London MD Primary Care Provider Active Dr. Ashutosh Barajas MD Attending Provider, Emergency Provider Active Team Status: Inactive Member Role Status Dates Dr. Aleena London MD Primary Care Provider Active Dr. Dimple Lynn DO Attending Provider Activ e Team Status: Inactive Member Role Status Dates Dr. Aleena London MD Primary Care Provider Active Dr. Adele Aguila DO Emergency Provider Active Dr. Cassidy Moore MD Admit Provider, Attending Provider Active Dr. Christiano Eduardo MD Other Provider Active Team Status: Inactive Member Role Status Dates Dr. Aleena London MD Primary Care Provider Active Dr. Sorin Jacobs MD Attending Provider, Emergency Provi tita Active Team Status: Active Member Role Status Dates Dr. Aleena London MD Primary Care Provider Active ADRI Botello Attending Provider, Referring Pro vider Active Team Status: Inactive Member Role Status Dates Dr. Aleena London MD Primary Care Provider Active Dr. Sorin Jacobs MD Emergency Provider Active Team Status: Inactive Member Role Status Dates Dr. Aleena London MD Primary Care Provider Active ADRI Botello Attending Provider, Referring Pro vider Active Team Status: Active Member Role Status Dates Dr. Aleena London MD Primary Care Provider Active Dr. Dimple Lynn DO Attending Provider, Refe rring Provider Active Team Status: Active Member Role Status Dates Dr. Aleena London MD Primary Care Provider Active Rea Poon CLINICAL SUPPORT MANAGER, CLINICAL SUPPORT MANAGER-C Attending Provider Active Team Status: Inactive Member Role Status Dates Dr. Aleena London MD Primary Care Provider Active Dr. Drake Guzman DO Emergency Provider Active Team Status: Inactive Member Role Status Dates Dr. Aleena London MD Primary Care Provider Active Dr. Dimple Lynn DO Attending Provider, Refe rring Provider Active Team Status: Inactive Member Role Status Dates Dr. Aleena London MD Primary Care Provider Active Rea Poon CLINICAL SUPPORT MANAGER, CLINICAL SUPPORT MANAGER-C Attending Provider Active Team Status: Inactive Member Role Status Dates Dr. Aleena London MD Primary Care Provider, Refer ring Provider Active Hanh Balderas CLINICAL SUPPORT MANAGER, CLINICAL SUPPORT MANAGER-C Attending Provider Active Team Status: Inactive Member Role Status Dates Dr. Aleena London MD Primary Care Provider, Refer ring Provider Active Deysi Mcfarlane CLINICAL SUPPORT MANAGER, CLINICAL SUPPORT MANAGER-C Attending Provider Active Team Status: Active Member Role Status Dates Dr. Aleena London MD Primary Care Provider Active Dr. Greg Enrique MD Attending Provider Active Dr. Dimple Luis MD Referring Provider Active Team Status: Inactive Member Role Status Dates Dr. Aleena London MD Primary Care Provider, Refer ring Provider Active Dmitry Pop MD Attending Provider Active Team Status: Inactive Member Role Status Dates Dr. Aleena London MD Primary Care Provider Active Dr. Dimple Luis MD Attending Provider, Emergency Provider Active Team Status: Inactive Member Role Status Dates Dr. Aleena London MD Primary Care Provider, Refer ring Provider Active Dr. Yusuf Apple DO Attending Provider Active Team Status: Inactive Member Role Status Dates Dr. Aleena London MD Primary Care Provider Active Dr. Dimple Luis MD Emergency Provider Active Team Status: Inactive Member Role Status Dates Dr. Aleena London MD Primary Care Provider Active Dr. Jesi Padilla MD Emergency Provider Active Team Status: Inactive Member Role Status Dates Dr. Aleena London MD Primary Care Provider, Refer ring Provider Active Dr. Ralph Tracy DO Attending Provider Active Team Status: Active Member Role Status Dates Dr. Aelena London MD Primary Care Provider Active Dr. Ralph Tracy DO Attending Provider, Referring Provider Active Team Status: Inactive Member Role Status Dates Dr. Aleena London MD Primary Care Provider Active Dr. Ralph Tracy DO Attending Provider, Referring Provider Active Team Status: Inactive Member Role Status Dates Dr. Aleena London MD Primary Care Provider Active Dr. Jesi Padilla MD Attending Provider, Emergency Provider Active Team Status: Inactive Member Role Status Dates Dr. Aleena London MD Primary Care Provider Active Dr. Cassidy Moore MD Attending Provider, Referr ing Provider Active Team Status: Inactive Member Role Status Dates Dr. Aleena London MD Primary Care Provider Active Hanh Balderas CLINICAL SUPPORT MANAGER, CLINICAL SUPPORT MANAGER-C Attending Provider, Referring Provider Active Team Status: Inactive Member Role Status Dates Dr. Aleena London MD Primary Care Provider Active Dr. Ry Enamorado MD Emergency Provider Active [employer] Tender Relationship Specialty Start Date End Date Ericanannette Dimple Myrick [address] [place] [address] [place] [address] CLINICAL CODER 12/15/22 Team Status: Inactive Member Role Status Dates Dr. Aleena London MD Primary Care Provider Active Dr. Ry Enamorado MD Attending Provider, Emergency Pro vider Active Team Status: Inactive Member Role Status Dates Dr. Aleena London MD Primary Care Provider Active Dr. Loly Sierra DO Emergency Provider Active Team Status: Inactive Member Role Status Dates Dr. Aleena London MD Primary Care Provider Active Dr. Loly Sierra DO Attending Provider, Emergency P rovider Active Team Status: Active Member Role Status Dates Dr. Aleena London MD Primary Care Provider Active Dr. Yusuf Apple DO Attending Provid er, Referring Provider, Other Provider Active Team Status: Inactive Member Role Status Dates Dr. Aleena London MD Primary Care Provider Active Dr. Yusuf Apple DO Attending Provider, Referring Provider Active Team Status: Inactive Member Role Status Dates Dr. Aleena London MD Primary Care Provider, Refer ring Provider Active Greyson RUSH PA Attending Provider Active Team Status: Inactive Member Role Status Dates Dr. Aleena London MD Primary Care Provider, Refer ring Provider Active Sabrina RUSH PA Attending Provider Active Team Status: Active Member Role Status Dates Dr. Aleena London MD Primary Care Provider Active Sabrina RUSH PA Attending Provider, Referring Provi tita Active Team Status: Inactive Member Role Status Dates Dr. Aleena London MD Primary Care Provider Active Sabrina RUSH PA Attending Provider, Referring Provi tita Active Team Status: Active Member Role Status Dates Dr. Aleena London MD Primary Care Provider Active Dr. Cassidy Moore MD Attending Provider, Referr ing Provider Active Team Status: Active Member Role Status Dates Dr. Aleena London MD Primary Care Provider Active Dr. Reynaldo Flores MD Attending Provider Active Team Status: Inactive Member Role Status Dates Dr. Aleena London MD Primary Care Provider Active Dr. Greg Melgar DO Emergency Provider Active Team Status: Active Member Role Status Dates Dr. Aleena London MD Primary Care Provider Active Dr. Reynaldo Flores MD Attending Provider Active Dr. Greg Melgar DO Referring Provider Active [employer] Equipment Tender Relationship Specialty Start Date End Date Nima Kaur MD [address] [place] [address] PCP - General Family Medicine 04/30/13 02/01/23 Team Status: Inactive Member Role Status Dates Dr. Aleena London MD Primary Care Provider, Refer ring Provider Active MARY ELLEN Marmolejo Attending Provider Active Team Status: Inactive Member Role Status Dates Dr. Aleena London MD Primary Care Provider Active Dr. Ashutosh Barajas MD Emergency Provider Active Team Status: Inactive Member Role Status Dates Dr. Aleena London MD Primary Care Provider Active Dr. Ulices Wilks MD Attending Provider, Referrin g Provider Active [employer] Tender Relationship Specialty Start Date End Date Aleena London [address] [place] [place] [address] PCP - General 07/27/23 Dimple Lynn [address] [place] [address] Emission Technician 12/15/22 Team Status: Inactive Member Role Status Dates Dr. Aleena London MD Primary Care Provider, Refer ring Provider Active Dr. Irving Lobato MD Attending Provider Active Team Status: Inactive Member Role Status Dates Dr. Aleena London MD Primary Care Provider, Refer ring Provider Active MARY ELLEN Espinal Attending Provider Active Team Status: Inactive Member Role Status Dates Dr. Aleena London MD Primary Care Provider Active Dr. Oscar Fuller MD Attending Provider, Refe rring Provider Active Team Status: Active Member Role Status Dates Dr. Aleena London MD Primary Care Provider Active MARY ELLEN Espinal Attending Provider, Referring Pr ovider Active Dr. Irving Lobato MD Other Provider Active Team Status: Inactive Member Role Status Dates Dr. Aleena London MD Primary Care Provider Active Diana Barkman , CLINICAL SUPPORT MANAGER-C Attending Provider, Referring Pr ishaner Active Dr. Irving Lobato MD Other Provider Active Team Status: Active Member Role Status Dates Dr. Aleena London MD Primary Care Provider Active Dr. Oscar Fuller MD Attending Provider, Refe rring Provider Active Team Status: Active Member Role Status Dates Dr. Aleena London MD Primary Care P kev, Attending Provider, Referring Provider Active [employer] Equipment Tender Relationship Specialty Start Date End Date Aleena London [address] [place] [place] [id number] PCP - General 07/27/23 Dimple Lynn [address] [place] [address] Emission Technician 12/15/22 [employer] Equipment Tender Relationship Specialty Start Date End Date Nima Kaur MD [address] [place] [address] PCP - General Family Medicine 04/30/13 02/01/23 [employer] Equipment Tender Relationship Specialty Start Date End Date Nima Kaur MD [address] [place] [address] PCP - General Family Medicine 04/30/13 02/01/23 [employer] Equipment Tender Relationship Specialty [place] [address] [place] [id number] PCP - General Internal Medicine 03/13/21 Source Comments (unrecognize d section and content) In the event this informatio n is protected by the Federal Confidentiality of Alcohol and Drug Abuse Patient Records regulations: The Federal rules restrict any use of the information to criminally investigate or prosecute any alcohol or drug abuse patient.[facility] the event this information is protected by the Federal Confidentiality of Alcohol and Drug Abuse Patient Records regulations: The Federal rules restrict any use of the information to criminally investigate or prosecute any alcohol or drug abuse patient.[facility] the event this information is protected by the Federal Confidentiality of Alcohol and Drug Abuse Patient Records regulations: The Federal rules restrict any use of the information to criminally investigate or prosecute any alcohol or drug abuse patient.[facility] the event this information is protected by the Federal Confidentiality of Alcohol and Drug Abuse Patient Records regulations: The Federal rules restrict any use of the information to criminally investigate or prosecute any alcohol or drug abuse patient.[facility] the event this information is protected by the Federal Confidentiality of Alcohol and Drug Abuse Patient Records regulations: The Federal rules restrict any use of the information to criminally investigate or prosecute any alcohol or drug abuse patient.[facility] the event this information is protected by the Federal Confidentiality of Alcohol and Drug Abuse Patient Records regulations: The Federal rules restrict any use of the information to criminally investigate or prosecute any alcohol or drug abuse patient.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 [employer] provides no warranty or guarantee of the accuracy or completeness of information in this document.
[2024-11-02 03:20] VITALS: BP 121/82; PULSE 81; RESP 16; TEMP 37; O2SAT 95
[2024-11-02 03:30] LABS: ALB/GLOB Ratio 1.7 RATIO (0.9-2.4); AST(SGOT) 18 U/L (<=31); Alanine Aminotransfer ALT/SGPT 25 U/L (<=34); Albumin, Serum 4.3 g/dL (3.5-5.0); Alkaline Phosphatase 67 U/L (35-104); Anion Gap 10 (5-15); BUN 9 mg/dL (4-19); BUN/Creat Ratio 13.4 RATIO (10-20); Calcium,Total 8.9 mg/dL (7.6-11.0); Carbon Dioxide 22.2 mmol/L (21.0-32.0); Chloride 107 mmol/L (98-108); Creatinine, Serum 0.69 mg/dL (0.70-1.20); EST Glomerular Filtration Rate 115 (>60); Globulin 2.5 g/dL (2.2-4.2); Glucose 91 mg/dL (70-99); Lipase 39 U/L (13-75); Potassium 3.8 mmol/L (3.3-5.1); Protein, Total 6.8 g/dL (5.9-8.4); Sodium Level 139 mmol/L (133-145); Total Bilirubin 0.28 mg/dL (0.00-1.30)
== END 2024-11-02 03:20 | disposition home or self-care (01) ==
LOC: ED 02:47
PROVIDERS: Emergency Provider Emergency Medicine; PCP Internal Medicine; Visit Provider Emergency Medicine
DX: R10.9 Unspecified abdominal pain (principal); I10 Essential (primary) hypertension; R82.81 Pyuria; F17.210 Nicotine dependence, cigarettes, uncomplicated; K44.9 Diaphragmatic hernia without obstruction or gangrene; T47.1X6A Underdosing of other antacids and anti-gastric-secretion drugs, initial encounter; Z91.148 Patient's other noncompliance with medication regimen for other reason; G89.29 Other chronic pain
CPT/HCPCS: 80053; 81001; 83690; 85025; 87086; 87088; 99282

== ENCOUNTER → 2024-11-19 | Outpatient (CLI) | payer MEDICAID, SELFPAY ==
--- NOTE | 2024-11-19 10:02 | US_ITS ---
PROCEDURE: ABD LIMITED W/ ELASTOGRAPHY REASON FOR EXAM: LIVER FIBROSIS COMPARISON: CT abdomen and pelvis 06/18/2024, abdominal ultrasound 06/17/2024 TECHNIQUE: Right upper quadrant abdominal ultrasound. Mita ElastQ Imaging shear wave elastography for non-invasive assessment of liver tissue stiffness. Mita EPIQ Elite. FINDINGS: LIVER: Length: 18.6 cm cm Echotexture: Diffusely echogenic suggesting fatty infiltration Contour: Normal Lesions: None identified Elastography: EQI Med: 5.0 kPa EQI Med Alfred: 1.3 m/s IQR/Med: 17.0-28.7 %* GALLBLADDER: No stones sludge wall thickening or tenderness. COMMON BILE DUCT: Normal measuring 5 mm. PANCREAS: Visualized portions are sonographically unremarkable. Visualized portions of the right kidney are unremarkable. No right upper quadrant ascites. US/ABD Limited w/ Elastography IMPRESSION: Hepatomegaly and hepatic steatosis, with no to mild fibrosis. Reference Values: SRU <1.37 m/s (5.7kPa): No to mild fibrosis 1.37 m/s - 2.2 m/s: Moderate to severe fibrosis >2.2 m/s (15kPa): Significant fibrosis / cirrhosis METAVIR Score F2 or higher: 1.34 m/s (5.7kPa) F3 or higher: 1.55 m/s (7.3kPa) F4: 1.80 m/s (10kPa) * If the IQR/Med is >30%, the variance in the measurements is a large and the a ccuracy of the measurement may be in question. Reading Location: [facility]
== END | disposition home or self-care (01) ==
LOC: US 09:59
PROVIDERS: PCP Internal Medicine; Referring Provider Internal Medicine; Visit Provider Internal Medicine
DX: K76.0 Fatty (change of) liver, not elsewhere classified (principal); R10.11 Right upper quadrant pain; K74.00 Hepatic fibrosis, unspecified
CPT/HCPCS: 76705; 76981

== ENCOUNTER → 2024-12-17 | Outpatient (CLI) | payer MEDICAID, SELFPAY ==
--- NOTE | 2024-12-17 13:54 | VDLE_ITS ---
Reason For Study Reason For Study: RLE Swelling / Pain RIGHT SFJ is occluded s/p ligation GSV is occluded throughout s/p Venaseal ablation. CFV is partially compressible with bright intraluminal echoes consistent with Chronic DVT. Flow appears spontaneous and phasic and INCOMPETENT for greater than 1.0 second. FV is partially compressible with bright intraluminal echoes consistent with Chronic DVT. Flow appears spontaneous, phasic and INCOMPETENT for greater than 1.0 second. POP V is partially compressible with bright intraluminal echoes consistent with Chronic DVT. Flow appears spontaneous, phasic and INCOMPETENT for greater than 1.0 second. T/P Trunk is compressible. PTV is compressible. RT PerV is compressible. Procedure This is a venous duplex using B-mode, color flow and spectral Doppler. Exam performed in department. The exam was diagnostic. A preliminary report was called and/or faxed to [facility] office. VL/Venous Duplex US, Unilateral Interpretation Summary Deep veins of the right lower extremity are patent and compressible segmentally . There is no evidence of right lower extremity deep vein thrombosis. Unchanged appearance/wall thickening. Occlusion of great saphenous vein and adjacent varicosities consistent with rec ent ablation. Ordering Physician: Britany Nuñez Referring Physician: Jose Alejandro London Performed By: Simone Verdugo RVT
== END | disposition home or self-care (01) ==
LOC: CVS 13:52
PROVIDERS: PCP Internal Medicine; Referring Provider Physician Assistant; Visit Provider Physician Assistant
DX: R00.2 Palpitations (principal)
CPT/HCPCS: 93971

== ENCOUNTER 2024-12-20 20:55 | Emergency (ER) | payer MEDICAID, SELFPAY ==
[2024-12-20 20:56] VITALS: BP 136/97; PULSE 77; RESP 15; TEMP 37; O2SAT 100; BMI 37.8
--- NOTE | 2024-12-20 21:09 | EDS_ITS ---
HPI History of Present Illness Chief Complaint: Palpitations Detail of Chief Complaint: Palpitations and racing heart Informant: patient Narrative Narrative: Patient presents to the emergency department complaint of palpitations that started this afternoon. 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 She was able to use her pulse oximeter and check her pulse and even at the highest when she thought it was racing it was 88. Patient wore a quality assurance monitor body for about 5 days 3 to 4 weeks ago and states that no significant findings were found. She called her fast food fry cook office and was told to come in and get evaluated. Patient has no history of SVT or family history of abnormal heart rhythms. She has without a thyroid and takes levothyroxine and states that she has been evaluated for thyroid recently and all checked out well. She denies recent illness. She does have history of anxiety but states this feels different than her anxiety. She did have some numbness and tingling to the left side of her face and some discomfort into her left arm [facility] Medical History (Updated 12/20/24 @ 22:[address] Adele Aguila, ) Bacterial sinusitis Dysfunction of right eustachian tube Obesity (BMI 30-39.9) Borderline type 2 diabetes mellitus Hx of flexible sigmoidoscopy Wears glasses Heartburn Bronchitis History of edema Hx of fracture of arm Deep vein blood clot of right lower extremity DVT (deep venous thrombosis) Right foot sprain Right ankle sprain Breast pain, right Herniated nucleus pulposus, C4-5 Contact with or exposure to other viral diseases Dermatitis PONV (postoperative nausea and vomiting) Leg cramps Anxiety and depression Left shoulder pain Depression Chronic pain Cancer Arthritis Fatty liver Restless legs Back pain Injury of head and neck Syncope Fibromyalgia History of pain when walking Hypertension History of echocardiogram History of stress test Cardiology follow-up encounter Localized swelling, mass and lump, neck Cervical lymphadenopathy Heartburn Chronic RUQ pain Tinnitus Vertigo Ectopic cardiac beats Palpitations RUQ abdominal pain Cervical radiculopathy Chronic back pain Left-sided low back pain with left-sided sciatica Hypocalcemia Tobacco abuse Bronchitis Morbid obesity Post herpetic neuralgia NICOLÁS (generalized anxiety disorder) ADHD (attention deficit hyperactivity disorder), combined type Numbness and tingling of both upper extremities Numbness of both lower extremities Migraine without aura and with status migrainosus, not intractable PCOS (polycystic ovarian syndrome) History of gestational diabetes Almaz's thyroiditis History of acne Thyroid disease Home Medications ?Medication ?Instructions ?Recorded ?Last Taken ?Type albuterol sulfate 2.5 mg/3 mL 2.5 mg (3 mL) inhalation Q6H PRN 01/16/24 Unknown Rx (0.083 %) solution for nebulization shortness of breat h or wheezing #90 mL compress.stocking,knee,reg,lrg #2 ea 03/21/24 Unknown Rx albuterol sulfate 90 mcg/actuation 2 puff inhalation Q 6H PRN 05/03/24 Unknown Rx aerosol inhaler shortness of breath or wheez ing #8.5 grams ursodiol 300 mg capsule 300 mg PO BID #180 caps 01/13 Unknown Rx aspirin 81 mg tablet,delayed 81 mg PO DAILY 07/08/24 0 08/26/24 History release (Adult Low Dose Aspirin) oxycodone-acetaminophen 5 mg-325 1 tab PO Q6H PRN PRN pain 07/08/24 12/20/24 14:30 History mg tablet levothyroxine 137 mcg tablet 137 mcg PO DAILY synthroi d #90 tabs 07/31/24 08/27/24 06:00 Rx amlodipine 5 mg tablet 5 mg PO DAILY for blood pres sure 10/21/24 Unknown Rx #90 TABLETS prochlorperazine maleate 10 mg 10 mg PO BID PRN for mi graine #30 11/04/24 Unknown Rx tablet TABLETS silver sulfadiazine 1 % topical 1 applic topical QDAY #50 grams 11/14/24 Unknown Rx cream (Silvadene) triamcinolone acetonide 0.5 % 1 applic topical TID PRN rash #15 11/14/24 Unknown Rx topical cream grams rosuvastatin 10 mg tablet 10 mg PO QHS 12/09/24 Unknow n History doxycycline monohydrate 100 mg 100 mg PO BID #14 caps 12/17/24 Unknown Rx capsule ketoprofen 75 mg capsule 75 mg PO Q6H PRN Migraine Sy mptoms 12/17/24 Unknown Rx #100 caps prednisone 50 mg tablet 50 mg PO QDAY #5 tabs Unknown Rx hydroxyzine HCl 25 mg tablet 25 mg PO BID 12/20/24 Unk nown History lorazepam 1 mg tablet (Ativan) 1 mg PO TID PRN anxiety #10 tabs 12/20/24 Unknown Rx Allergy/AdvReac Type Severity Reaction Status Date / Time latex Allergy Itching Verified 12/20/24 20:58 naproxen Allergy Unknown Verified 12/20/24 20:58 Penicillins (PCN) Allergy Rash Verified 12/20/24 20:58 escitalopram (From Lexapro) AdvReac Intermediate Lightheaded Verified 12/20/24 20:58 sertraline (From Zoloft) AdvReac Intermediate Dizzy & Verified 12/20/24 20:58 Headache NSAIDS (Non-Steroidal AdvReac Mild Other Verified 12/20/24 20:58 Anti-Inflamma hydrocodone (From Vicodin) AdvReac Other Verified 12/20/24 20:58 ketorolac (From Toradol) AdvReac Other Verified 12/20/24 20:58 Family History Grandmother Diabetes Hypertension Hypercholesterolemia Thyroid disorder Mother Family history of skin cancer Other High cholesterol Surgical History History of varicose vein ligation (08/27/24) History of carpal tunnel surgery of right wrist History of surgery on lower extremity Status post incision and drainage (~04/15/22) History of total vaginal hysterectomy (TVH) (~03/22/22) History of thyroidectomy Social History household members: spouse housing: house Smoking Status: Current every day smoker tobacco type: cigarettes Tobacco: How many years used: 13 Electronic Cigarette Use: not used second hand exposure: No alcohol intake: current alcohol intake frequency: holidays/special occasions only substance use type: does not use caffeine: Yes what type of physical activity do you participate in: none seatbelt use: always do you feel safe at home: Yes additional social history: emmy [facility] ED Review of Systems ROS Unobtainable: other Constitutional Constitutional ED: Reports lethargy; Denies chills, fever(s), sweats or weight loss Eyes Eyes: Denies blurry vision, change in vision or diplopia ENT ENT ED: Denies rhinorrhea or sore throat Cardiovascular Cardiovascular: Reports palpitations and racing heartbeat; Denies chest pain or orthopnea Respiratory/Chest Respiratory/Chest: Denies cough, dyspnea, dyspnea on exertion, orthopnea or sputum Gastrointestinal Gastrointestinal: Denies abdominal pain, diarrhea, nausea or vomiting Genitourinary Genitourinary ED: Denies dysuria, hematuria or urinary frequency Musculoskeletal Musculoskeletal: Denies arthralgias, back pain, myalgias or neck pain Integumentary Denies abscess, Abrasions or rash Neurologic Neurologic: Reports paresthesias; Denies headache(s) or weakness Psychiatric Psychiatric: Denies anxiety, depression or suicidal thoughts Endocrine Endocrinology: Denies polydipsia, polyphagia or polyuria Hematologic/Lymphatic Hematologic/Lymphatic: Denies easy bleeding, easy bruising or lymphadenopathy Allergic/Immunologic Allergic/Immunologic ED: Denies mouth swelling, tongue swelling or urticaria EXAM Physical Exam Const Vital Signs: 12/20/24 20:56 12/20/24 21:03 Temperature 98.6 F Temperature Source Oral Pulse Rate 77 Respiratory Rate 15 Respiratory Effort Normal Non-Labored Respiratory Pattern Normal Blood Pressure 136/97 H Blood Pressure Mean 110 Pulse Ox 100 Oxygen Delivery Method Room Air Positive well nourished and well developed General Appearance ED: well developed and NAD HEENT Reports TM's clear and moist mucous membranes normocephalic and atraumatic; Negative for trauma or tenderness Tympanic Membrane ED: Yes TM's clear Eyes PERRL and EOMs intact bilaterally General Eye ED: Negative for pale conjunctiva or scleral icterus Neck no lymphadenopathy, supple and no JVD General: Negative for tenderness Chest Wall inspection of chest normal and palpation of chest normal Chest: Negative for tenderness Resp normal respiratory effort and clear to auscultation bilaterally Effort and Inspection: Negative for respiratory distress or pain with movement Auscultation: Negative for rhonchi, wheezes or diminished lung sounds Cardio regular rate, regular rhythm, S1 normal heart sound, S2 normal heart sound and no murmurs Peripheral Pulses: pulses 2+ throughout GI normal to inspection, nondistended, normoactive bowel sounds, soft to palpation, non-tender, non-distended and no masses Back/Spine no CVA tenderness and no thoracic nor lumbar tenderness Extremity normal to inspection General Extremety ED: Negative for edema General Extremity: Negative for edema Neuro oriented x3, CN's II-XII intact bilaterally, no sensory deficits noted and gait normal Sensorium / Orientation: awake, alert, oriented to person, oriented to place and oriented to time Motor Exam: strength 5/5 throughout and strength abnormal Psych mental status grossly normal Skin no rashes or lesions noted and no wounds MDM MDM MDM Narrative Medical decision making narrative: Patient presents to the emergency department with racing heart and palpitations. She has had similar symptoms and wore a quality assurance monitor body 3 to 4 weeks ago. Patient also has history of anxiety and has a as needed hydroxyzine. She also had some discomfort in her left arm and some paresthesias in her left face. Clinically she looks well. No significant risk factors for PE. No significant risk factors for acute coronary syndrome. Patient is a smoker. IV line established. EKG obtained on arrival showed a sinus rhythm with ventricular rate of 69 bpm with no acute ST segment changes. No evidence for delta wave. CBC with differential obtained showed a white count of 6.2 with hemoglobin 13.3 and platelet count of 184. Chemistries unremarkable. Troponin was less than 6. Magnesium was normal at 1.9. This point there was no ectopy on monitor. She clinically looks well. Will order a 48-hour Holter monitor. Heart rate at times in the 50s and 60s therefore I do not feel she would be a good candidate for beta-yany. Will recommend she follow-up with primary care physician and her fast food fry cook within the next 3 to 5 days. Patient will be given a prescription for a few Ativan as needed for anxiety. Given that she noted heart rate in the 80s at the time where she felt like it was racing and was sympto matic it would be unlikely that she had a significant cardiac dysrhythmia. Lab Data Attestation: I reviewed the patient's lab results. Labs: Laboratory Results - last 24 hr 12/20/24 21:25 WBC 6.2 RBC 4.73 Hgb 13.3 Hct 40.3 MCV 85.2 MCH 28.1 MCHC 33.0 RDW Std Deviation 40.2 RDW Coeff of Mikel 13.0 Plt Count 164 MPV 11.3 Immature Gran % (Auto) 0.300 Neut % (Auto) 48.9 Lymph % (Auto) 42.4 H Vermilion % (Auto) 6.1 Eos % (Auto) 1.8 Baso % (Auto) 0.5 Absolute Neuts (auto) 3.0 Absolute Lymphs (auto) 2.62 Nucleated RBC % 0 Sodium 139 Potassium 3.4 Chloride 104 Carbon Dioxide 24.1 Anion Gap 11 BUN 11 Creatinine 0.81 Estim Creat Clear Calc 117.25 Est GFR (MDRD) Non-Af 95 BUN/Creatinine Ratio 13.4 Glucose 111 H Calcium 9.1 Magnesium 1.9 Troponin T High Sens < 6 EKG Initial EKG: Attestation: I personally reviewed and interpreted this EKG as follows: Comments: Sinus rhythm with ventricular rate of 69 bpm with no acute ST segment changes Discharge Plan Triage Chief Complaint: Palpitations ED Provider: Adele Aguila Dx/Rx/DC Orders Clinical Impression: Heart palpitations, Anxiety Instructions: ED Anxiety Reaction, ED Palpitations Prescriptions: New lorazepam [Ativan] 1 mg tablet 1 mg PO TID PRN (Reason: anxiety) Qty: 10 0RF No Action albuterol sulfate 90 mcg/actuation HFA aerosol inhaler 2 puff inhalation Q6H PRN (Reason: shortness of breath or wheezing) Qty: 8.5 0RF ursodiol 300 mg capsule 300 mg PO BID Qty: 180 1RF triamcinolone acetonide 0.5 % cream 1 applic topical TID PRN (Reason: rash) Qty: 15 1RF silver sulfadiazine [Silvadene] 1 % cream 1 applic topical QDAY Qty: 50 0RF Rx Instructions: apply a 1.5 mm thickness doxycycline monohydrate 100 mg capsule 100 mg PO BID Qty: 14 0RF prednisone 50 mg tablet 50 mg PO QDAY Qty: 5 0RF oxycodone-acetaminophen 5-325 mg tablet 1 tab PO Q6H PRN PRN (Reason: pain) aspirin [Adult Low Dose Aspirin] 81 mg tablet,delayed release (DR/EC) 81 mg PO DAILY hydroxyzine HCl 25 mg tablet 25 mg PO BID rosuvastatin 10 mg tablet 10 mg PO QHS albuterol sulfate 2.5 mg /3 mL (0.083 %) solution for nebulization 2.5 mg inhalation Q6H PRN (Reason: shortness of breath or wheezing) Qty: 90 1RF (DME) compress.stocking,knee,reg,lrg Misc See Rx Instructions .MEDSUPPLY Qty: 2 1RF Rx Instructions: wear daily for venous insufficiency 20-30 mmHg levothyroxine 137 mcg tablet 137 mcg PO DAILY Qty: 90 1RF amlodipine 5 mg tablet 5 mg PO DAILY Qty: 90 0RF prochlorperazine maleate 10 mg tablet 10 mg PO BID PRN (Reason: for migraine) Qty: 30 0RF ketoprofen 75 mg capsule 75 mg PO Q6H PRN (Reason: Migraine Symptoms) Qty: 100 1RF Rx Instructions: 1 cap PO at on set of headache max of 3 in 24 hours, max 20 per month Primary Care Provider: Jose Alejandro London Referrals: Jossue Sanchez MD [Med Staff - Active Staff] - 5-7 Days Jose Alejandro London MD [Primary Care Provider] - Print Language: [place] Citizen Disposition Disposition: Home, Self Care
--- NOTE | 2024-12-20 21:09 | EKG12_ITS ---
Test Reason : DYSRHYTHMIA Blood Pressure : */* mmHG Vent. Rate : 69 BPM Atrial Rate : 69 BPM P-R Int : 158 ms QRS Dur : 86 ms QT Int : 380 ms P-R-T Axes : 11 51 22 degrees QTcB Int : 407 ms Normal sinus rhythm Normal ECG Confirmed by ANNA HARTMAN, SHAYNA ([id number]), editor producer DIANE SILVER ([id number]) on 12/23/2024 7:00:55 AM Referred By: Confirmed By: SHAYNA CASTILLO MD
--- OUTSIDE RECORDS SUMMARY | 2024-12-20 21:35 | XMS RPT_ITS | CCD ---
Author Organization [facility] CliniSyct Care Team Providers Care Rv Technician Name Role Phone Cassidy Moore MD Unavailable [phone] Sherrie QUILL MACHINE TENDER, Hanh S Unavailable [phone] Debora Quiroz Unavailable Unavailable Debora Quiroz Unavailable Unavailable Nima Kaur Unavailable Unavailable Angeles RN RN, Sneha Medrano Unavailable Unavailteresita Balderas QUILL MACHINE TENDER, Hanh S Unavailable [phone] Cassidy Moore MD Unavailable [phone])2 Dr. Aleena London Primary Care Provider 1(33 0) Dr. Aleena London Referring Provider [phone] ADRI Cho Attending Provider Unavailab Lynn QUILL MACHINE TENDER, QUILL MACHINE TENDER-C Deysi Attending Provider Dr. Aleena London Attending Provider [phone])2 Dr. Ralph Tracy Attending Provider 1(330) Dr. Royce Mckinney Attending Provider [phone] Cassidy Moore Attending Provider 1(330 ) Sherrie QUILL MACHINE TENDER, QUILL MACHINE TENDER-C Hanh Attending Provider [phone] Dr. Aleena London Primary Care Provider [phone] Dr. Aleena London Referring Provider [phone] ADRI Cho Attending Provider UnavailADRI Chen Attending Provider Cleve MARY, QUILL MACHINE TENDER-C Rea Desai Attending Provider 1(3 30) Dr. Aleena London Primary Care Provider [phone] Dr. Aleena London Referring Provider [phone] ADRI Cho Attending Provider Dr. Aleena Garcia Attending Provider [phone])2 Baldomero QUILL MACHINE TENDER, QUILL MACHINE TENDER-Shiraz Bermudez Attending Provider ADRI Freire Attending Provider Dr. Aleena London Primary Care Provider [phone] Dr. Aleena London Referring Provider [phone])2 Dr. Ralph Tracy Attending Provider ADRI Cho Attending Provider ADRI Lomax Other Provider [phone] Dr. Aleena London Primary Care Provider [phone] Dr. Aleena London Referring Provider 1(330)2 Dr. Cassidy Moore Attending Provider [phone] Dr. Royce Mckinney Attending Provider Enoc QUILL MACHINE TENDER, QUILL MACHINE TENDER-C Libertad Attending Provider 1(330) Dr. Earnest Haynes [...] Dr. Aleena London Referring Provider [phone])2 Cleve QUILL MACHINE TENDER, QUILL MACHINE TENDER-C Rea Desai Attending Provider 1(3 30) Dr. [...] Moore Referring Provider 1(330 ) Dr. Aleena London Primary Care Provider 1(33 0) Dr. Aleena London Referring Provider 1(330)2 Enoc MARY, QUILL MACHINE TENDER-C Libertad Attending Provider 1(330) Dr. Cassidy Moore Admit Provider [phone] Dr. Cassidy Moore Other Provider [phone] Dr. Aleena London Primary Care Provider 1(33 0) Dr. Aleena London Referring Provider [phone])2 Dr. Cassidy Moore Attending Provider 1(330 ) Cleve QUILL MACHINE TENDER, QUILL MACHINE TENDER-C Rea Desai Attending Provider 1(3 30) Dr. Aleena London Attending Provider [phone])2 Dr. Mo Washington Attending Provider [phone] ADRI Albert Attending Provider Dr. Jossue Sanchez Attending Provider [phone] Cassidy Moore Referring Provider 1(330 ) Enoc QUILL MACHINE TENDER, QUILL MACHINE TENDER-C Libertad Attending Provider 1(330) Dr. Cassidy Moore Admit Provider [phone] Dr. Cassidy Moore Other Provider [phone] Dr. Dimple Lynn Attending Provider 1(3 30) Dr. Aleena London Primary Care Provider [phone] Dr. Aleena London Referring Provider 1(330)2 Dr. Cassidy Moore Attending Provider 1(330 ) Dr. Adele Aguila Emergency Provider Dr. Christiano Eduardo Other Provider Unavaila [facility] Lita, Dr. Blount Primary Care Provider 1(33 0) Dr. Aleena London Referring Provider [phone])2 Cleve QUILL MACHINE TENDER, QUILL MACHINE TENDER-C Rea Desai Attending Provider 1(3 30) Dr. Aleena London Primary Care Provider [phone] Dr. Aleena London Referring Provider [phone])2 Dr. Cassidy Moore Attending Provider 1(330 ) Cleve QUILL MACHINE TENDER, QUILL MACHINE TENDER-C Rea Desai Attending Provider [phone] Dr. Mo Washington Attending Provider ADRI Albert Attending Provider Dr. Jossue Sanchez Attending Provider Dr. Cassidy Moore Referring Provider 1(330 ) Enoc QUILL MACHINE TENDER, QUILL MACHINE TENDER-C Libertad Attending Provider 1(330) Dr. Cassidy Moore [...] 1(330)2 Dr. Jossue Sanchez Attending Provider Enoc QUILL MACHINE TENDER, QUILL MACHINE TENDER-C Libertad Attending Provider [phone] Pending, Provider Primary Care Unavailable Dr. Argelia Paris Attending Unavail able Cleve QUILL MACHINE TENDER, QUILL MACHINE TENDER-C Rea Desai Attending Provider [phone] ALEENA [...] [phone] Dr. Epif[place]io Kong [facility] [facility] [place] Attending Provider Unavailab duyen Stubbs QUILL MACHINE TENDER, QUILL MACHINE TENDER-C Libertad Attending Provider 1(330) Cleve QUILL MACHINE TENDER, QUILL MACHINE TENDER-C Rea Desai Attending Provider 1(3 30) LITA HARTMAN, ALEENA Fernandes Primary Care Physician (3 30) ALAN QUINN DO Attending Unavailable LITA HARTMAN, ALEENA Fernandes Primary Care Unavailab duyen LONDON MD, ALEENA Fernandes Primary Care Unavailab BALDO Farah Attending Unavailable Dr. Aleena London Primary Care Provider 1(33 0) Dr. Aleena London Referring Provider [phone])2 Sherrie QUILL MACHINE TENDER, QUILL MACHINE TENDER-C Hanh Attending Provider 1(330 ) Maeve MARY, QUILL MACHINE TENDER-C Deysi Attending Provider Dr. Greg Enrique Attending [...] Dr. Aleena London Referring Provider [phone])2 Sherrie QUILL MACHINE TENDER, TYRA-Shiraz Schafer Attending Provider 1(330 ) Maeve MARY, QUILL MACHINE TENDER-C Deysi Attending Provider Dr. Greg Enrique Attending [...] Dimple Lynn Attending Provider [phone] Sherrie QUILL MACHINE TENDER, QUILL MACHINE TENDER-C Hanh Attending Provider 1(330 ) Dr. Aleena London Primary Care Provider 1(33 0) Dr. Aleena London Referring Provider 1(330)2 Dimple Lynn R Unavailable Dr. Aleena London Primary Care Provider 1(33 0) Dr. Aleena London Referring Provider 1(330)2 Dr. Ralph Tracy Attending Provider 1(330) Dr. Dimple Lynn Attending Provider [phone] Sherrie QUILL MACHINE TENDER, TYRA-C Hanh Attending Provider 1(330 ) Dr. [...] Dimple Lynn Attending Provider 1(3 30) Sherrie QUILL MACHINE TENDER, MARY ELLEN Schafer Attending Provider 1(330 ) [...] [phone] ADRI Albert Attending Provider Sherrie MARY, QUILL MACHINE TENDER-C Hanh Attending Provider [phone] Dr. Aleena [...] Attending Provider Dr. Aleena London Attending Provider Lita Efewongbe Primary Care Provider Unavaila daryn Kaur MD, Nima Medrano Primary Care Provider Lita HARTMAN, Aleena Dudleydicta Primary Care Prov ider OLEGHE, EFEWONGBE LISE Primary Care Unav ailable DB JR., TOMASZ Referring Unavailable DB JR., PIERSON Admitting Unavailable OLEGHE, EFEWONGBE LISE Primary Care Unav ailable DB JR., PIERSON Referring Unavailable DB JR., PIERSON Admitting Unavailable OLEGHE, EFEWONGBE LISE Primary Care Unav ailable DB JR., TOMASZ Attending Unavailable RADHA GALLEGOS Attending Unavaila ble OLEGHE, EFEWONGBE LISE Primary Care Unav ailable COREY PRETTY Attending Unavail able OLEGHE, EFEWONGBE LISE Primary Care Unav ailable ADAN MOONEY Attending Unavailable OLEGHE, EFEWONGBE LISE Primary Care Unav ailable CADEANDRIA Attending Unavailab le OLEGHE, EFEWONGBE LISE Primary Care Unav ailable MALAKOEBENEZER BARBA Attending Unavailable OLEGHE, EFEWONGBE LISE Primary Care Unav ailable LIBERTAD FOSTER Attending Unavailable OLEGHE, EFEWONGBE LISE Primary Care Unav ailable BELKYS AVILA Attending Unavailable OLEGHE, EFEWONGBE LISE Primary Care Unav ailable OLEGHE, EFEWONGBE LISE Primary Care Unav ailable LIBERTAD FOSTER Attending Unavailable SHERRIEULICES Truong Attending Unava ilable OLEGHE, EFEWONGBE LISE Primary Care Unav ailable RADHA GALLEGOS Attending Unavaila ble OLEGHE, EFEWONGBE LISE Primary Care Unav ailable OLEGHE, EFEWONGBE LISE Primary Care Unav ailable SHERRIE, ULICES GAINES Attending Unava ilable SHERRIE, ULICES GAINES Attending Unava ilable OLEGHE, EFEWONGBE LISE Primary Care Unav ailable NIKKI MILLER Attending Unavail able OLEGHE, EFEWONGBE LISE Primary Care Unav ailable ANDRIA CADE Attending Unavailab le OLEGHE, EFEWONGBE LISE Primary Care Unav ailable KAYLA TIJERINA Attending Unavailable OLEGHE, EFEWONGBE LISE Primary Care Unav ailable HASAN, RADHA MAKI Attending Unavaila ble OLEGHE, EFEWONGBE LIES Primary Care Unav ailable MARGARITA, BELKYS BROWN Attending Unavailable OLEGHE, EFEWONGBE LISE Primary Care Unav ailable FOSTER, LIBERTAD CLARK Attending Unavailable OLEGHE, EFEWONGBE LISE Primary Care Unav ailable HASAN, RADHA MAKI Attending Unavaila ble OLEGHE, EFEWONGBE LISE Primary Care Unav ailable FOSTER, LIBERTAD CLARK Attending Unavailable OLEGHE, EFEWONGBE LISE Primary Care Unav ailable ADAN MOONEY Attending Unavailable OLEGHE, EFEWONGBE LISE Primary Care Unav ailable SALNEFTALY, ARNOLDO Osullivan Attending Unavailable OLEGHE, EFEWONGBE LISE Primary Care Unav ailable FOSTER, LIBERTAD CLARK Attending Unavailable OLEGHE, EFEWONGBE LISE Primary Care Unav ailable Britany Nuñez Attending Unavailable Nuñez, Britany Referring Unavailable Oleghe, Efewongbe Primary Care Unavailable NuñezBritany dennis Attending Unavailable Nuñez, Britany Referring Unavailable Oleghe, Efewongbe Primary Care Unavailable Nuñez, Britany Attending Unavailable Nuñez, Britany Referring Unavailable Oleghe, Efewongbe Primary Care Unavailable Oleghe, Efewongbe Primary Care Unavailable Augie Adams Attending Unavailable Oleghe, Efewongbe Primary Care Unavailable Ralph Tracy Attending Unavailable Oleghe, Efewongbe Referring Unavailable Oleghe, Efewongbe Primary Care Unavailable Drake Guzman Attending Unavailable Nuñez, Britany Referring Unavailable Nuñez, Britany Attending Unavailable Oleghe, Efewongbe Primary Care Unavailable Oleghe, Efewongbe Primary Care Unavailable LeannaDwayneSigrid Referring Unavailable LeannaLuizyn Attending Unavailable Oleghe, Efewongbe Primary Care Unavailable [place], Greg Attending Unavailable Nuñez, Britany Referring Unavailable Nuñez, Britany Referring Unavailable Oleghe, Efewongbe Primary Care Unavailable Chet Enriqueic Attending Unavailable Oleghe, Efewongbe Primary Care Unavailable León Aiken Attending Unavailable Oleghe, Efewongbe Primary Care Unavailable Loly Sierra Attending Unavailable Oleghe, Efewongbe Primary Care Unavailable Augie Adams Attending Unavailable Augie Adams Referring Unavailable Oleghe, Efewongbe Primary Care Unavailable Chuck Allen Attending Unavailabl e Oleghe, Efewongbe Primary Care Unavailable Oleghe, Efewongbe Attending Unavailable Oleghe, Efewongbe Referring Unavailable Oleghe, Efewongbe Primary Care Unavailable Patrick Gtz Attending Unavailable Patrick Gtz Referring Unavailable Oleghe, Efewongbe Primary Care Unavailable Sherrie QUILL MACHINE TENDER, Hanh Attending Unavailable Sherrie QUILL MACHINE TENDER, Hanh Referring Unavailable Oleghe, Efewongbe Primary Care Unavailable Iesha Loya Referring Unavailable Iesha Loya Attending Unavailable Oleghe, Efewongbe Primary Care Unavailable Greg Enrique Attending Unavailable Nuñez, Britany Consulting Unavailable Iva, Greg Referring Unavailable [place] Greg Consulting Unavailable Oleghe, Efewongbe Primary Care Unavailable Patrick Gtz Attending Unavailable Oleghe, Efewongbe Referring Unavailable Oleghe, Efewongbe Primary Care Unavailable Iesha Loya Attending Unavailable Oleghe, Efewongbe Referring Unavailable Nuñez, Britany Attending Unavailable Nuñez, Britany Referring Unavailable Oleghe, Efewongbe Primary Care Unavailable Oleghe, Efewongbe Primary Care Unavailable Ry Enamorado Referring Unavailable Ry Enamorado Attending Unavailable Nuñez, Britany Referring Unavailable Nuñez, Britany Attending Unavailable Oleghe, Efewongbe Primary Care Unavailable Oleghe, Efewongbe Primary Care Unavailable Nuñez, Britany Referring Unavailable Nuñez, Britany Attending Unavailable Oleghe, Efewongbe Primary Care Unavailable Sherrie QUILL MACHINE TENDER, Hanh Referring Unavailable [place] QUILL MACHINE TENDER, Hanh Attending Unavailable Oleghe, Efewongbe Primary Care Unavailable Luis Alfredo, Irving Referring Unavailable Luis Alfredo, Irving Attending Unavailable Oleghe, Efewongbe Primary Care Unavailable Greg Enrique Attending Unavailable [place], Greg Referring Unavailable Oleghe, Efewongbe Primary Care Unavailable Drake Guzman Attending Unavailable Oleghe, Efewongbe Primary Care Unavailable Ry Enamorado Attending Unavailable Oleghe, Efewongbe Primary Care Unavailable Nuñez, Britany Referring Unavailable Nuñez Britany Attending Unavailable Oleghe, Efewongbe Primary Care Unavailable Ry Enamorado Attending Unavailable Oleghe, Efewongbe Primary Care Unavailable Chuck Allen Attending Unavailabl e Klusty-KeoChuck cervantes Attending Unavailabl e Oleghe, Efewongbe Primary Care Unavailable Oleghe, Efewongbe Primary Care Unavailable Ashutosh Barajas Attending Unavailable Oleghe, Efewongbe Primary Care Unavailable Greg Melgar Attending Unavailable Oleghe, Efewongbe Primary Care Unavailable Ashutosh Barajas Attending Unavailable Oleghe, Efewongbe Primary Care Unavailable Drake Guzman Attending Unavailable Oleghe, Efewongbe Primary Care Unavailable Loly Sierra Attending Unavailable Oleghe, Efewongbe Primary Care Unavailable Germán Kulkarni Attending Unavailable Oleghe, Efewongbe Primary Care Unavailable Shaq Laureano Attending Unavailable Oleghe, Efewongbe Primary Care Unavailable Tere Rivera Referring Unavailable Tere Rivera Attending Unavailable Oleghe, Efewongbe Primary Care Unavailable Yusuf Apple Attending Unavailable Yusuf Apple Referring Unavailable Luis Alfredo, Irving Attending Unavailable Luis Alfredo, Irving Referring Unavailable Oleghe, Efewongbe Primary Care Unavailable Oleghe, Efewongbe Primary Care Unavailable Greg Enrique Attending Unavailable Savannah, Britany Consulting Unavailable Iva, Greg Referring Unavailable Oleghe, Efewongbe Primary Care Unavailable Dmitry Pop Attending Unavailable JenyisonDmitry Referring Unavailable Oleghe, Efewongbe Primary Care Unavailable Nuñez, Britany Referring Unavailable Nuñez, Britany Attending Unavailable Oleghe, Efewongbe Primary Care Unavailable Nuñez, Britany Referring Unavailable Nuñez, Britany Attending Unavailable Oleghe, Efewongbe Primary Care Unavailable Nuñez, Britany Referring Unavailable Nuñez, Britany Attending Unavailable Oleghe, Efewongbe Primary Care Unavailable RufenerVirgilen M Referring Unavailable RufenerIesha M Attending Unavailable Oleghe, Efewongbe Primary Care Unavailable Rufener, Iesha M Referring Unavailable RufenerVirgilen M Attending Unavailable Oleghe, Efewongbe Primary Care Unavailable Rufener, Iesha M Referring Unavailable Rufener, Iesha M Attending Unavailable Oleghe, Efewongbe Primary Care Unavailable Oleghe, Efewongbe Attending Unavailable Oleghe, Efewongbe Primary Care Unavailable Rufener, Iesha M Referring Unavailable Rufener, Iesha M Attending Unavailable Oleghe, Efewongbe Primary Care Unavailable Ralph Tracy Attending Unavailable Oleghe, Efewongbe Referring Unavailable Oleghe, Efewongbe Primary Care Unavailable Bill MARY, Lisa Attending Unavailable Bill MARY, Lisa Referring Unavailable Oleghe, Efewongbe Primary Care Unavailable Nuñez, Britany Referring Unavailable Nuñez, Britany Attending Unavailable Nuñez, Britany Referring Unavailable Oleghe, Efewongbe Primary Care Unavailable Greg Enrique Attending Unavailable Oleghe, Efewongbe Attending Unavailable Oleghe, Efewongbe Referring Unavailable Oleghe, Efewongbe Primary Care Unavailable Oleghe, Efewongbe Primary Care Unavailable Epifanio Kong Attending Unavailable Johner, Iesha M Referring Unavailable RuhudsonerIesha M Consulting Unavailable Oleghe, Efewongbe Primary Care Unavailable Iva Greg Consulting Unavailable Greg Enrique Attending Unavailable Iva, Greg Referring Unavailable Oleghe, Efewongbe Primary Care Unavailable Chet Enriqueic Attending Unavailable Ry Enamorado Referring Unavailable Nuñez, Britany Referring Unavailable Oleghe, Efewongbe Primary Care Unavailable Iva Greg Attending Unavailable Sigrid Ram Attending Unavailable Oleghe, Efewongbe Primary Care Unavailable Oleghe, Efewongbe Referring Unavailable Oleghe, Efewongbe Primary Care Unavailable Johner Iesha M Referring Unavailable Epifanio Kong Attending Unavailable Oleghe, Efewongbe Referring Unavailable Oleghe, Efewongbe Primary Care Unavailable Patrick Gtz Attending Unavailable Oleghe, Efewongbe Referring Unavailable Oleghe, Efewongbe Primary Care Unavailable Dmitry Pop Attending Unavailable Oleghe, Efewongbe Primary Care Unavailable Jossue Sanchez Attending Unavailable Oleghe, Efewongbe Referring Unavailable Oleghe, Efewongbe Primary Care Unavailable Antonio Albert Attending Unavailable Oleghe, Efewongbe Primary Care Unavailable Oleghe, Efewongbe Attending Unavailable Oleghe, Efewongbe Referring Unavailable Oleghe, Efewongbe Primary Care Unavailable Cassie Krause Attending Unavailable Oleghe, Efewongbe Referring Unavailable Oleghe, Efewongbe Primary Care Unavailable Antonio Albert Attending Unavailable Oleghe, Efewongbe Referring Unavailable Oleghe, Efewongbe Primary Care Unavailable Oleghe, Efewongbe Referring Unavailable Charltete Ricks Attending Unavailable Britany Nuñez Attending Unavailable Oleghe, Efewongbe Primary Care Unavailable Oleghe, Efewongbe Referring Unavailable Oleghe, Efewongbe Primary Care Unavailable Irving Lobato Attending Unavailable Oleghe, Efewongbe Referring Unavailable Oleghe, Efewongbe Referring Unavailable Oleghe, Efewongbe Primary Care Unavailable Patrick Gtz Attending Unavailable Oleghe, Efewongbe Referring Unavailable Oleghe, Efewongbe Primary Care Unavailable Britany Nuñez Attending Unavailable Oleghe, Efewongbe Attending Unavailable Oleghe, Efewongbe Primary Care Unavailable Oleghe, Efewongbe Referring Unavailable Iesha Loya Attending Unavailable Oleghe, Efewongbe Primary Care Unavailable Oleghe, Efewongbe Referring Unavailable Hanh Balderas NP Attending Unavailable Oleghe, Efewongbe Primary Care Unavailable Oleghe, Efewongbe Referring Unavailable Britany Nuñez Attending Unavailable Oleghe, Efewongbe Referring Unavailable Oleghe, Efewongbe Primary Care Unavailable Oleghe, Efewongbe Primary Care Unavailable Oleghe, Efewongbe Referring Unavailable Lisa Khan NP Attending Unavailable Oleghe, Efewongbe Primary Care Unavailable Clover Handley Attending Unavailable Oleghe, Efewongbe Primary Care Unavailable Oleghe, Efewongbe Referring Unavailable Sneha Regalado Attending Unavailable Oleghe, Efewongbe Primary Care Unavailable Oleghe, Efewongbe Referring Unavailable Irving Lobato Attending Unavailable Oleghe, Efewongbe Primary Care Unavailable Oleghe, Efewongbe Referring Unavailable Juan J Lincoln Attending Unavailable Oleghe, Efewongbe Primary Care Unavailable NuñezBritany dennis Attending Unavailable Oleghe, Efewongbe Referring Unavailable Oleghe, Efewongbe Primary Care Unavailable Oleghe, Efewongbe Referring Unavailable Hanh Balderas NP Attending Unavailable Oleghe, Efewongbe Primary Care Unavailable Patrick Gtz Attending Unavailable Oleghe, Efewongbe Referring Unavailable Oleghe, Efewongbe Primary Care Unavailable Jossue Sanchez Attending Unavailable Oleghe, Efewongbe Primary Care Unavailable Cassidy Moore Attending Unavailable Oleghe, Efewongbe Referring Unavailable Oleghe, Efewongbe Primary Care Unavailable Greg Enrique Attending Unavailable Nuñez, Britany Referring Unavailable Oleghe, Efewongbe Primary Care Unavailable Greg Enrique Attending Unavailable Nuñez, Britany Referring Unavailable Oleghe, Efewongbe Primary Care Unavailable Greg Enrique Attending Unavailable Oleghe, Efewongbe Primary Care Unavailable David Bender Attending Unavailable Lisa Khan NP Referring Unavailable Oleghe, Efewongbe Primary Care Unavailable Greg Enrique Attending Unavailable Nuñez, Britany Referring Unavailable Oleghe, Efewongbe Primary Care Unavailable Greg Enrique Attending Unavailable Nuñez, Britany Referring Unavailable Nuñez, Britany Referring Unavailable Oleghe, Efewongbe Primary Care Unavailable Greg Enrique Attending Unavailable Oleghe, Efewongbe Primary Care Unavailable Sigrid Ram Attending Unavailable Oleghe, Efewongbe Referring Unavailable Oleghe, Efewongbe Primary Care Unavailable Patrick Gtz Attending Unavailable Oleghe, Efewongbe Referring Unavailable Oleghe, Efewongbe Primary Care Unavailable Nuñez Britany Attending Unavailable Oleghe, Efewongbe Referring Unavailable Oleghe, Efewongbe Primary Care Unavailable Clover Handley Attending Unavailable Oleghe, Efewongbe Primary Care Unavailable Jossue Sanchez Attending Unavailable Oleghe, Efewongbe Primary Care Unavailable Ry Enamorado Referring Unavailable [place], Greg Attending Unavailable [facility] Primary Care Unavailable Britany Nuñez Referring Unavailable Greg Enrique Attending Unavailable [facility], Efewongbe Primary Care Unavailable Cassidy Moore Referring Unavailable Cassidy Moore Attending Unavailable Allergies Allergy Classification Reported Allergen(s) Allergy Type Date of Onset Reaction(s) Facility (20 sources) ondansetron; Translations: [[facility] 01-10-20 17 [facility] (1 source) ketorolac; Translations: [Toradol] Drug Allergy [facility] Repository (20 sources) Latex; Translations: [Latex] Propensity to adverse reactions to drug (disorder) 04-10-20 12 Eruption of skin (disorder), Rash [facility] Repository (20 sources) Penicillins; Translations: [penicillins] Propensity to adverse reactions to drug (disorder) 02-18-20 10 [facility] Repository (7 sources) Acetaminophen Drug Allergy 08-21-19 22 Other [facility] Work Phone: (20 sources) Dicyclomine; Translations: [DICYCLOMINE] Drug Allergy 05-27-19 16 Intolerance, GI Intolerance, Unknown [facility] (20 sources) Escitalopram; Translations: [ESCITALOPRAM] Drug Allergy 02-25-20 16 Headache, Unknown [facility] (20 sources) HYDROcodone; Translations: [HYDROCODONE] Drug Allergy 03-15-20 21 Unknown [facility] (20 sources) Ketorolac; Translations: [KETOROLAC] Drug Allergy 05-27-19 16 [facility] (20 sources) Naproxen; Translations: [NAPROXEN] Drug Allergy 11-10-19 17 Unknown, Other (See Comments), [facility] (20 sources) Ondansetron; Translations: [ONDANSETRON HCL] Drug Allergy 03-02-20 21 Migraine [facility] Repository (20 sources) Promethazine; Translations: [PROMETHAZINE] Drug Allergy 12-28-19 18 Unknown [facility] (20 sources) Sertraline; Translations: [SERTRALINE] Drug Allergy 02-25-20 16 Headache, Other (See Comments) [facility] (4 sources) Acetaminophen / HYDROcodone; Translations: [HYDROCODONE-ACET AMINOPHEN] Drug Allergy 02-25-20 22 Other (See Comments) [facility] Repository (1 source) Penicillin; Translations: [penicillins] Drug Allergy Eruption of skin (disorder) [facility] (7 sources) Escitalopram; Translations: [ESCITALOPRAM OXALATE] Drug Allergy 02-25-20 16 Other: See Comments [facility] Work Phone: (7 sources) Ondansetron; Translations: [ONDANSETRON HCL (PF)] Drug Allergy 08-17-19 13 Other: See Comments [facility] Work Phone: (7 sources) Promethazine; Translations: [PROMETHAZINE HCL] Drug Allergy 12-28-19 18 Unknown [facility] Work Phone: (7 sources) Sertraline; Translations: [SERTRALINE HCL] Drug Allergy 02-25-20 16 Other: See Comments [facility] Work Phone: (3 sources) Non-steroidal anti-inflammatory agent; Translations: [NSAIDS (NON-STEROIDAL ANTI-INFLAMMATORY DRUG)] Propensity to adverse reactions to drug 05-29-[address] [facility] (1 source) Dicyclomine Drug Allergy 05-06-20 24 [facility] Repository (1 source) Escitalopram Drug Allergy 12-18-19 25 [facility] Repository (1 source) HYDROcodone Drug Allergy 12-18-19 25 [facility] Repository (1 source) Ketorolac Drug Allergy 12-18-19 25 [facility] [facility] Repository (1 source) Naproxen Drug Allergy 12-18-19 25 [facility] Repository (1 source) Sertraline Drug Allergy 12-18-19 25 [facility] Repository (1 source) NSAIDS (Non-Steroidal Anti-Inflamma Drug allergy (disorder) 12-18-19 25 [facility] Repository Medications Current Medications Medication Drug Class(es) [...] Comment on above: Take 1 capsule by [facility] once daily for 30 days. azithromycin [...] Comment on above: Take 1 capsule by [facility] once daily. fluconazole 150 mg oral [...] Active Start: 02-11-2024 take 1 tablet by hilraio [facility] once daily sertraline (ZOLOFT) 25 MG [...] mg tablet Discontinued 1 TABLET PO Q4H 18 April 20, 2022 April 23, 2022 1:10am Start: [...] hours Oxycodone-Acetaminophen Discontinued 1 TABLET PO Q8H 12 May 03, 2021 May 07, 2021 1:02am Start: 02-26-2021 End: 03-04-2021 take 1 tablet by mouth every six hours Oxycodone-Acetaminophen (Percocet) 5-325 mg tablet Discontinued 1 TABLET PO EVERY 6 HOURS 10 February 26, 2021 March 04, 2021 10:53am Start: 02-19-2021 End: 03-04-2021 Start: 02-19-2021 End: 02-26-2021 take 1 tablet by mouth twice daily Oxycodone-Acetaminophen Discontinued 1 TABLET PO TWICE A DAY 14 February 19, 2021 February 26, 2021 12:01am [...] and post prandial BLOOD GLUCOSE MONITORING SUPPL [id number] Cassidy Moore MD Start: 02-06-2017 End: 02-13-2017 FREESTYLE FREEDOM LITE w/Dev ice KIT Check blood sugar fast and post prandial BLOOD GLUCOSE MONITORING SUPPL [id number] Cassidy Moore MD BLOOD GLUCOSE MONITORING SUP PL (13 sources) Start: 02-06-2017 End: 02-13-2017 FREESTYLE FREEDOM LITE w/Dev ice KIT Check blood sugar fast and post prandial BLOOD GLUCOSE MONITORING SUPPL [id number] Cassidy Moore MD Start: 02-06-2017 End: 02-13-2017 FREESTYLE FREEDOM LITE w/Dev ice KIT Check blood sugar fast and post prandial BLOOD GLUCOSE MONITORING SUPPL [id number] Cassidy Moore MD BLOOD GLUCOSE MONITORING SUPPL (2 sources) Start: 02-06-2017 End: 02-13-2017 FREESTYLE FREEDOM LITE w/Device KIT Check blood sugar fast and post prandial BLOOD GLUCOSE MONITORING SUPPL [id number] Cassidy Moore MD cefdinir 300 mg oral [...] Sugar fasting and post prandial GLUCOSE BLOOD [id number] Cassidy Moore MD Start: 02-06-2017 End: 02-13-2017 FREESTYLE LITE TEST STRP Susan ck Blood Sugar fasting and post prandial GLUCOSE BLOOD [id number] Cassidy Moore MD GLUCOSE BLOOD (13 sources) Start: 02-06-2017 End: 02-13-2017 FREESTYLE LITE TEST STRP Susan ck Blood Sugar fasting and post prandial GLUCOSE BLOOD [id number] Cassidy Moore MD Start: 02-06-2017 End: 02-13-2017 FREESTYLE LITE TEST STRP Susan ck Blood Sugar fasting and post prandial GLUCOSE BLOOD [id number] Cassidy Moore MD GLUCOSE BLOOD (2 sources) Start: 02-06-2017 End: 02-13-2017 FREESTYLE LITE TEST STRP Check Blood Sugar fasting and post prandial GLUCOSE BLOOD [id number] Cassidy Moore MD hydrocortisone 25 mg/ml topical [...] route once daily Nicotine Discontinued 0 TD .[facility] June 03, 2021 9:41am September 27, 2021 2:15pm apply 1-21 mg NICOTINE PATCH daily for 28 days; follow with 1-14 mg PATCH daily for 14 days, then 1-7mg PATCH daily for 14 days transdermal Start: 06-03-2021 apply 1 dose transde rmal route once daily, then apply 1 dose transdermal route once daily Nicotine Active 0 TD .[facility] June 03, 2021 9:41am apply 1-21 mg NICOTINE PATCH daily for 28 days; follow with 1-14 mg PATCH daily for 14 days, then 1-7mg PATCH daily for 14 days transdermal Start: 06-03-2021 End: 09-27-2021 Start: 06-03-2021 End: 09-27-2021 apply 1 dose transdermal route once daily, then apply 1 dose transdermal route once daily Nicotine Discontinued 0 TD .[facility] June 03, 2021 12:00am September 27, 2021 1:15pm apply 1-21 mg NICOTINE PATCH daily for 28 days; follow with 1-14 mg PATCH daily for 14 days, then 1-7mg PATCH daily for 14 days transdermal Start: 06-03-2021 End: 09-27-2021 apply 1 dose transdermal route once daily, then apply 1 dose transdermal route once daily Nicotine Discontinued 0 TD .[facility] June 03, 2021 1:00am September 27, [...] mg tablet Discontinued 0.35 MG PO daily March 15, 2021 12:00am June 03, 2021 9:10am start day 1 of menstrual cycle Start: 03-15-2021 End: 06-03-2021 nystatin [id number] unt/ml topic al cream (20 sources) Polyene Antifungal Start: 05-11-2022 End: 05-25-2022 Start: 05-11-2022 End: 05-25-2022 Nystatin Discontinued 1 APPL IC TOPICAL TWICE A DAY May 11, 2022 1:00am May 25, 2022 5:21pm apply to affected area twice a day Start: 04-20-2022 End: 05-04-2022 Start: 04-20-2022 End: 05-04-2022 take 1 mL by mouth once daily Nystatin Discontinued 4 ML PO DAILY April 20, 2022 1:00am May 04, 2022 [...] q 6 hours as needed PROMETHAZINE HCL [id number] Cassidy Moore MD Gwircxvqs-Jhofelqhu-Cr rethindr (17 sources) Start: 02-15-20 End: 04-19-20 Start: 02-14-2023 rho(d) immune globulin, human 1500 unt prefilled syringe (6 sources) Human Immunoglobulin G Start: 06-15-2017 End: 06-15-2017 inject 1500 [IU] by intramuscular injection once RhoGAM Ultra-Filtered PLUS (rho(D) immune globulin) 1,500 unit (300 mcg) Discontinued 1500 UNIT IM ONCE 1 June 15, 2017 5:34pm June 15, 2017 [...] as the cause of diseases classified elsewhere] Onset: 5 10-06-2017 Episodic Cardiac dysrhythmias (20 sources) Ectopic beats; Translations: [Other premature depolarization] Chronic Cardiac dysrhythmias (20 sources) Palpitations; Translations: [Palpitations] Onset: 5 Episodic Complications of surgical procedures or medical [...] of teeth and supporting structures] 01-16-2019 Episodic Essential hypertension (20 sources) Essential hypertension; Translations: [Essential (primary) hypertension] Onset: 5 Chronic Gastrointestinal hemorrhage (20 sources) Hematochezia; Translations: [Melena] [...] Onset: 5 Episodic Other connective tissue disease (4 sources) Pain in right leg; Translations: [Pain in right leg] Onset: 5 Episodic Other connective tissue disease (1 source) Pain in right thigh; Translations: [Pain in right thigh] Onset: 5 Episodic Other diseases of [...] Translations: [Abdominal distension (gaseous)] 09-05-2023 Episodic Other inflammatory condition of skin (1 source) Sunburn of second degree; Translations: [Sunburn of second degree] Onset: 5 Episodic Other injuries and conditions due to [...] Onset: 4 Chronic Other nervous system disorders (2 sources) Disease of spinal cord, unspecified; Translations: [Disease of spinal cord, unspecified] Onset: 5 Chronic Other nervous system disorders (20 sources) [...] skin sensation] Episodic Other nervous system disorders (18 sources) Acute postoperative pain; Translations: [Other acute postprocedural pain] 02-14-2023 Episodic Other non-traumatic joint disorders (1 source) Shoulder pain; Translations: [Pain in left shoulder] 09-02-2022 Episodic Other nutritional; endocrine; and metabolic disorders (20 sources) Body mass index 30+ - obesity; Translations: [Obesity, unspecified] Onset: 01-09-2017 Chronic Other nutritional; endocrine; and metabolic [...] head and neck] Episodic Other skin disorders (1 source) Localized swelling, mass and lump, right lower limb; Translations: [Localized swelling, mass and lump, right lower limb] Onset: 5 Episodic Other upper respiratory disease (20 sources) Acute bronchospasm; Translations: [Acute bronchospasm] 02-11-2021 Episodic Other upper respiratory disease (2 sources) Pain in throat; Translations: [Pain in throat] 09-29-2023 Episodic Other upper respiratory infections (1 source) Chronic sinusitis, unspecified; Translations: [Chronic sinusitis, unspecified] Onset: 5 Chronic Otitis media and related conditions (20 sources) Otitis media; Translations: [Otitis media, unspecified, unspecified ear] Onset: 5 12-23-2018 Episodic Phlebitis; thrombophlebitis and thromboembolism (2 sources) 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; Translations: [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] Onset: 5 Chronic Residual codes; unclassified (2 sources) Hypersomnia, unspecified; Translations: [Hypersomnia, unspecified] Onset: 5 Chronic Residual codes; unclassified (20 sources) Family [...] with and (suspected) exposure to covid-19] Onset: Urinary tract infections (20 sources) Urinary tract [...] accident, traffic, initial encounter] Onset: 03-17-2024 Episodic Fever of unknown origin (1 source) Fever, unspecified; Translations: [Fever, unspecified] Onset: 09-12-2024 Episodic Gastritis and duodenitis (2 sources) Gastritis, [...] thigh; Translations: [Pain in left thigh] Onset: 08-15-2024 Episodic Other connective tissue disease (1 source) [...] lung field] Onset: 11-10-2020 11-10-2020 Episodic Other nervous system disorders (20 sources) Other acute postprocedural pain; Translations: [Other acute postoperative pain] Onset: 09-12-2024 Episodic Other non-traumatic joint disorders (20 sources) Pain in left shoulder; Translations: [Pain in joint, shoulder region] Onset: 01-11-2024 09-02-2022 Episodic Other non-traumatic joint disorders (6 sources) Chronic pain of left upper limb; Translations: [Pain in left shoulder] Onset: 05-19-2016 02-27-2017 Episodic Other screening for suspected conditions (not [...] [Follicular disorder, unspecified] Onset: 05-09-2024 Episodic Other skin disorders (2 sources) Localized swelling, mass and lump, left lower limb; Translations: [Localized swelling, mass and lump, left lower limb] Onset: 08-15-2024 Episodic Other upper respiratory infections (20 sources) [...] tendon at neck level, initial encounter] Onset: 11-25-2023 Episodic Superficial injury; contusion (20 sources) Corneal [...] Interpretation Reference Range Facility ED Prov Noteon 11-04-2024 ED Prov Note ED PROVIDER NOTE [facility] NAME: Lana Rivera AGE: 39 y.o. : 1985 VISIT DATE: 11/04/2024 CSN: [id number] PCP: Aleena London MD Chief Complaint Patient [...] 12-lead Date/Time: 11/04/2024 1:42 PM Performed by: Radha Gallegos MD Authorized by: Radha Gallegos MD BPM: 83 Comments: Sinus, rate 83, [...] low risk ACS patient with close interval fo (more content not included)... Normal [facility] POC BASIC METABOLIC PANEL - Seda 11-04-2024 Chloride [Moles/Vol] 103 mmol/L Normal 98-108 [facility] Comment on above: Order Comment: Negat jimmie: Dilute urine specimens, as indicated by a low specific gravity (<1.010) may not contain representitive levels of hCG. If is still suspected, a serum test or repeat urine test using a first morning urine specimen should be considered. CO2 [Moles/Vol] 25 mmol/L Normal 21-32 [facility] Comment on above: Order Comment: Negat jimmie: Dilute urine specimens, as indicated by a low specific gravity (<1.010) may not contain representitive levels of hCG. If is still suspected, a serum test or repeat urine test using a first morning urine specimen should be considered. Creatinine [Mass/Vol] 0.67 mg/dL Normal 0.40-1.10 [facility] Comment on above: Order Comment: Negat jimmie: Dilute urine specimens, as indicated by a low specific gravity (<1.010) may not contain representitive levels of hCG. If is still suspected, a serum test or repeat urine test using a first morning urine specimen should be considered. Glucose [Mass/Vol] 129 mg/dL High 65-99 [facility] Comment on above: Order Comment: Negat jimmie: Dilute urine specimens, as indicated by a low specific gravity (<1.010) may not contain representitive levels of hCG. If is still suspected, a serum test or repeat urine test using a first morning urine specimen should be considered. POC GFR 116 mL/min/1.73 m2 Normal >=60 [facility] Comment on above: Order Comment: Negat jimmie: Dilute urine specimens, as indicated by a low specific gravity (<1.010) may not contain representitive levels of hCG. If is still suspected, a serum test or repeat urine test using a first morning urine specimen should be considered. Result Comment: Bria mated GFR was calculated using the 2020 CKD-EPI creatinine equation. POC IONIZED CALCIUM 4.8 mg/dL Normal 4.5-5.3 [facility] Comment on above: Order Comment: Negat jimmie: Dilute urine specimens, as indicated by a low specific gravity (<1.010) may not contain representitive levels of hCG. If is still suspected, a serum test or repeat urine test using a first morning urine specimen should be considered. Potassium [Moles/Vol] 3.2 mmol/L Low 3.5-5.1 [facility] Comment on above: Order Comment: Negat jimmie: Dilute urine specimens, as indicated by a low specific gravity (<1.010) may not contain representitive levels of hCG. If is still suspected, a serum test or repeat urine test using a first morning urine specimen should be considered. Sodium [Moles/Vol] 134 mmol/L Low 135-145 [facility] Comment on above: Order Comment: Negat jimmie: Dilute urine specimens, as indicated by a low specific gravity (<1.010) may not contain representitive levels of hCG. If is still suspected, a serum test or repeat urine test using a first morning urine specimen should be considered. Urea nitrogen [Mass/Vol] 6 mg/dL Low 8-25 [facility] Comment on above: Order Comment: Negat jimmie: Dilute urine specimens, as indicated by a low specific gravity (<1.010) may not contain representitive levels of hCG. If is still suspected, a serum test or repeat urine test using a first morning urine specimen should be considered. POC CBC AND DIFFERENTIALon 0 - BASOPHILS ABSOLUTE COUNT 0.02 K/mcL Normal 0.00-0.30 [facility] Basophils/100 WBC (Bld) 0.5 % Normal [facility] Eosinophils (d) [#/Vol] 0.22 10*3/uL Normal 0.00-0.50 [facility] Eosinophils/100 WBC (Bld) 5.1 % Normal [facility] Erythrocyte distribution width (RBC) [Ratio] 12.9 % Normal 11.6-14.8 [facility] Hematocrit (Bld) [Volume fraction] 41.5 % Normal 36.0-46.0 [facility] Hemoglobin (Bld) [Mass/Vol] 13.7 g/dL Normal 12.0-16.0 [facility] IG ABSOLUTE 0.01 K/mcL Normal 0.00-0.30 [facility] IG PERCENT 0.20 % Normal [facility] Comment on above: Result Comment: The IG parameter is the percentage of metamyelocytes, myelocytes and promyelocytes. An immature granulocyte count (IG) of 1% or more suggests the possibility of infection, an IG count of 3% is very likely related to an infection. Lymphocytes (Bld) [#/Vol] 1.20 10*3/uL Normal 0.90-4.00 [facility] Lymphocytes/100 WBC (Bld) 28.0 % Normal [facility] MCH (RBC) [Entitic mass] 28.2 pg Normal 26.0-34.0 [facility] MCV (RBC) [Entitic vol] 85.6 fL Normal 80.0-100.0 [facility] MEAN CORPUSCULAR HEMOGLOBIN CONC 33.0 g/dL Normal 31.0-37.0 [facility] Monocytes (Bld) [#/Vol] 0.35 10*3/uL Normal 0.30-0.90 [facility] Monocytes/100 WBC (Bld) 8.2 % Normal [facility] NEUTROPHILS ABSOLUTE COUNT 2.48 K/mcL Normal 1.70-7.00 [facility] Neutrophils/100 WBC (Bld) 58.0 % Normal [facility] Platelet mean volume (Bld) [Entitic vol] 10.5 fL Normal 9.4-12.4 [facility] Platelets (Bld) [#/Vol] 152 10*3/uL Normal 150-400 [facility] RBC (Bld) [#/Vol] 4.85 10*6/uL Normal 4.00-5.20 [facility] WBC (Bld) [#/Vol] 4.28 10*3/uL Low 4.50-11.00 [facility] POC D-DIMER [facility] POC D-DIMER 209 ng/mL DDU Normal <350 [facility] Comment on above: Order Comment: Injur y/Trauma or Illness?:Illness/Other How long have you had these symptoms (acute/chronic)?:Acute Reason for exam?:sudden onset of lower abd and right sided back pain in the night hx of ovarian cyst and endometreosis Type of Exam?:Initial Additional signs and symptoms?:na POC TROPONIN I [facility] 2024 POC TROPONIN I < Normal <0.05 [facility] POC TROPONIN I < Normal <0.05 [facility] XR CHEST PA/APon 06-16-2025 XR CHEST PA/AP EXAMINATION: XR CHEST PA/AP [...] is unremarkable. IMPRESSION: No acute cardiopulmonary process. One[employer]/D2S Workstation ID: [id number] Dictated by: JOHANNA MARCH on MonNov 04, 2024 2:36:53 PM EDT Transcribed by: SULAIMAN FREEDMAN on MonNov 04, 2024 2:59:40 PM EDT Finalized by: JOHANNA MARCH on MonNov 04, 2024 9:31:44 PM EDT [facility] Comment on above: Order Comment: Injur y/Trauma or Illness?:Illness/Other How long have you had these symptoms (acute/chronic)?:Acute Reason for exam?:sudden onset of lower abd and right sided back pain in the night hx of ovarian cyst and endometreosis Type of Exam?:Initial Additional signs and symptoms?:na ED Prov Noteon 10-04-2024 ED Prov Note ED PROVIDER NOTE [facility] NAME: Lana Rivera AGE: 39 y.o. : 1985 VISIT DATE: 10/04/2024 CSN: [id number] PCP: Aleena London MD Chief Complaint Patient [...] Skin is warm. (more content not included)... Normal [facility] ED Prov Noteon 08-20-2024 ED Prov Note HPI: 08/20/2024, Time: @LIZZ@ Lana Rivera is a 39 y.o. female presenting to [...] are negative. PAST HISTORY Past Medical History: @[facility]@ Past Surgical History: has a past surgical [...] 5 days . Follow-up: Aleena London MD [id number] [facility] [id number] In 3 days Final Impression: 1. Hearing loss due to cerumen impaction, right 2. Acute bronchitis, unspecified organism (Please note that portions of this note were completed with a voice recognition program. Efforts were made to edit the dictations but occasionally words are mis-transcribed.) G (more content not included)... [facility] POC STREP A - MOLECULAR RALS on 08-20-2024 POC STREP A SCREEN Negative Normal Negative [facility] XR CHEST PA/APon 08-20-2024 XR CHEST PA/AP [...] MonAug 20, 2024 12:05:28 PM EDT Normal [facility] Comment on above: Order Comment: Injur y/Trauma or Illness?:Illness/Other How long have you had these symptoms (acute/chronic)?:Acute Reason for exam?:lower GI bleed with abd pain Type of Exam?:Initial Additional signs and symptoms?:na XR FOOT LEFT 3+ VIEWS (STAND SHELLY)on 06-21-2024 XR FOOT LEFT 3+ VIEWS (STANDARD) plantar calcaneal enthesophyte appreciated. Minimal edema. No fractures dislocation or subluxation seen. Dictated by: TOMASZ ACE on MonJun 21, 2024 5:05:52 PM EST Transcribed by: TOMASZ ACE on MonJun 21, 2024 5:05:52 PM EST Finalized by: TOMASZ ACE on MonJun 21, 2024 5:05:52 PM EST Normal [facility] Comment on above: Order Comment: Injur y/Trauma or Illness?:Illness/Other How long have you had these symptoms (acute/chronic)?:Chronic Reason for exam?:PAIN History of cancer?:n Surgeries, chemotherapy, or radiation?:ORIF radius and ulna Type of Exam?:Initial Additional signs and symptoms?:NO XR FOOT RIGHT 3+ VIEWS (MOI WELDON)on 06-21-2024 XR FOOT RIGHT 3+ VIEWS (STANDARD) Clear and obvious plantar calcaneal enthesophyte appreciated. Minimal edema. No fractures dislocation or subluxation seen. Dictated by: TOMASZ ACE on MonJun 21, 2024 5:05:42 PM EST Transcribed by: TOMASZ ACE on MonJun 21, 2024 5:05:42 PM EST Finalized by: TOMASZ ACE on MonJun 21, 2024 5:05:42 PM EST Normal [facility] Comment on above: Order Comment: Injur y/Trauma or Illness?:Illness/Other How long have you had these symptoms (acute/chronic)?:Chronic Reason for exam?:PAIN History of cancer?:n Surgeries, chemotherapy, or radiation?:ORIF radius and ulna Type of Exam?:Initial Additional signs and symptoms?:NO ED Prov Noteon 06-16-2024 ED Prov Note [place] ED Physician Note: NAME: Lana Rivera 39 y.o. CSN: [id number] PCP: Aleena London MD ED Course / [...] Resource Strain: High Risk (02/19/2020) Received from [facility] Overall Financial Resource Strain (CARDIA) Difficulty of Paying Living Expenses: Hard Food Insecurity: No Food Insecurity (02/19/2020) Received from [facility] Hunger Vital Sign Worried About Running Out of Food in the Last Year: Never true Ran Out of Food in the Last Year: Never true Transportation Needs: No Transportation Needs (02/19/2020) Received from [facility] PRAPARE - Transportation Lack of Transportation (Medical): No Lack of Transportation (Non-Medical): No Physical Activity: Insufficiently Active (01/27/2020) [facility] Exercise Vital Sign Days of Exercise per Week: 2 days Minutes of Exercise per Session: 20 min Stress: No Stress Concern Present (01/27/2020) Received from [facility] [place] [facility] Occup[facility] - Occupational Stress Questionnaire Feeling of Stress : Only a little Social Connections: Moderately Isolated (01/27/2020) Received from [facility] Social Connection and Isolation Panel [NHANES] Frequency of Communication with Friends and Family: More than three times a week Frequency of Social Gatherings with Friends and Family: Twice a week Attends Jewish Services: Never Active Member of Clubs or Organizations: No Attends Club or Organization Meetings: Never Marital Status: Housing Stability: Low Risk (01/27/2020) Received from [facility] Housing Stability Vital [...] Take 2 pills (more content not included)... [facility] ED Prov Noteon 06-13-2024 ED Prov Note ED PROVIDER NOTE [facility] NAME: Lana Rivera AGE: 39 y.o. : 1985 VISIT DATE: 06/13/2024 CSN: [id number] PCP: Aleena London MD Chief Complaint Patient [...] Resource Strain: High Risk (02/19/2020) Received from [facility] Overall Financial Resource Strain (CARDIA) Difficulty of Paying Living Expenses: Hard Food Insecurity: No Food Insecurity (02/19/2020) Received from [facility] Hunger Vital Sign Worried About Running Out of Food in the Last Year: Never true Ran Out of Food in the Last Year: Never true Transportation Needs: No Transportation Needs (02/19/2020) Received from [facility] PRAPARE - Transportation Lack of Transportation (Medical): No Lack of Transportation (Non-Medical): No Physical Activity: Insufficiently Active (01/27/2020) Received from [facility] Exercise Vital Sign Days of Exercise per Week: 2 days Minutes of Exercise per Session: 20 min Stress: No Stress Concern Present (01/27/2020) Received from [facility] [place] of Occupational Health - Occupational Stress Questionnaire Feeling of Stress : Only a little Social Connections: Moderately Isolated (01/27/2020) Received from [facility] Social Connection and Isolation Panel [NHANES] Frequency of Communication with Friends and Family: More than three times a week Frequency of Social Gatherings with Friends and Family: Twice a week Attends Jewish Services: Never Active Member of Clubs or Organizations: No Attends Club or Organization Meetings: Never Marital Status: Housing Stability: Low Risk (01/27/2020) Received from [facility] Housing Stability Vital [...] Allergies Allergen Re (more content not included)... [facility] XR SHOULDER LEFT 2+ VIEWS (S TANDARD)on [...] appear unremarkable. IMPRESSION: No acute osseous abnormality. [employer]/GameCrush Workstation ID: [id number] Dictated by: RAUL WESTON on MonJun 13, 2024 3:35:23 PM EST Transcribed by: OLY TINAJERO on MonJun 13, 2024 3:40:55 PM EST Finalized by: RAUL WESTON on MonJun 13, 2024 3:52:44 PM EST Normal [facility] Comment on above: Order Comment: Injur y/Trauma or Illness?:Illness/Other How long have you had these symptoms (acute/chronic)?:Acute Reason for exam?:lower GI bleed with abd pain Type of Exam?:Initial Additional signs and symptoms?:na ED Prov Noteon 06-05-2024 ED Prov Note ED PROVIDER NOTE [facility] NAME: Lana Rivera AGE: 39 y.o. : 1985 VISIT DATE: 06/05/2024 CSN: [id number] PCP: Aleena London MD Chief Complaint Patient [...] Resource Strain: High Risk (02/19/2020) Received from [facility] Overall Financial Resource Strain (CARDIA) Difficulty of Paying Living Expenses: Hard Food Insecurity: No Food Insecurity (02/19/2020) Received from [facility] Hunger Vital Sign Worried About Running Out of Food in the Last Year: Never true Ran Out of Food in the Last Year: Never true Transportation Needs: No Transportation Needs (02/19/2020) Received from [facility] PRAPARE - Transportation Lack of Transportation (Medical): No Lack of Transportation (Non-Medical): No Physical Activity: Insufficiently Active (01/27/2020) Received from [facility] Exercise Vital Sign Days of Exercise per Week: 2 days Minutes of Exercise per Session: 20 min Stress: No Stress Concern Present (01/27/2020) Received from [facility] [place] [facility] [employer] [facility] - Occupational Stress Questionnaire Feeling of Stress : Only a little Social Connections: Moderately Isolated (01/27/2020) Received from [facility] Social Connection and Isolation Panel [NHANES] Frequency of Communication with Friends and Family: More than three times a week Frequency of Social Gatherings with Friends and Family: Twice a week Attends Jewish Services: Never Active Member of Clubs or Organizations: No Attends Club or Organization Meetings: Never Marital Status: Housing Stability: Low Risk (01/27/2020) [facility] Housing Stability Vital Sign Unable to Pay [...] times a d (more content not included)... [facility] ED Prov Noteon 05-28-2024 ED Prov Note ED PROVIDER NOTE [facility] NAME: Lana Rivera AGE: 39 y.o. : 1985 VISIT DATE: 05/28/2024 CSN: [id number] PCP: Aleena London MD Chief Complaint Patient [...] Resource Strain: High Risk (02/19/2020) Received from [facility] Overall Financial Resource Strain (CARDIA) Difficulty of Paying Living Expenses: Hard Food Insecurity: No Food Insecurity (02/19/2020) Received from [facility] Hunger Vital Sign Worried About Running Out of Food in the Last Year: Never true Ran Out of Food in the Last Year: Never true Transportation Needs: No Transportation Needs (02/19/2020) Received from [facility] PRAPARE - Transportation Lack of Transportation (Medical): No Lack of Transportation (Non-Medical): No Physical Activity: Insufficiently Active (01/27/2020) Received from [facility] Exercise Vital Sign Days of Exercise per Week: 2 days Minutes of Exercise per Session: 20 min Stress: No Stress Concern Present (01/27/2020) Received from [facility] [place] [facility] - Occupational Stress Questionnaire Feeling of Stress : Only a little Social Connections: Moderately Isolated (01/27/2020) Received from [facility] Social Connection and Isolation Panel [NHANES] Frequency of Communication with Friends and Family: More than three times a week Frequency of Social Gatherings with Friends and Family: Twice a week Attends Jewish Services: Never Active Member of Clubs or Organizations: No Attends Club or Organization Meetings: Never Marital Status: Housing Stability: Low Risk (01/27/2020) Received from [facility] Housing Stability Vital [...] Allergen Reactions Hydrocodo (more content not included)... [facility] ED Prov Noteon 05-09-2024 ED Prov Note HPI: 05/09/2024, Time: @LIZZ@ Lana Rivera is a 39 y.o. female presenting to [...] are negative. PAST HISTORY Past Medical History: @[facility]@ Past Surgical History: has a past surgical [...] Normal Affect (more content not included)... Normal [facility] ED Prov Noteon 04-15-2024 ED Prov Note ED PROVIDER NOTE [facility] NAME: Lana Rivera AGE: 38 y.o. : 1985 VISIT DATE: 04/15/2024 CSN: [id number] PCP: Aleena London MD Chief Complaint Patient [...] Resource Strain: High Risk (02/19/2020) Received from [facility] Overall Financial Resource Strain (CARDIA) Difficulty of Paying Living Expenses: Hard Food Insecurity: No Food Insecurity (02/19/2020) Received from [facility] Hunger Vital Sign Worried About Running Out of Food in the Last Year: Never true Ran Out of Food in the Last Year: Never true Transportation Needs: No Transportation Needs (02/19/2020) Received from [facility] PRAPARE - Transportation Lack of Transportation (Medical): No Lack of Transportation (Non-Medical): No Physical Activity: Insufficiently Active (01/27/2020) Received from [facility] Exercise Vital Sign Days of Exercise per Week: 2 days Minutes of Exercise per Session: 20 min Stress: No Stress Concern Present (01/27/2020) Received from [facility] [place] [facility] [employer] - Occupational Stress Questionnaire Feeling of Stress : Only a little Social Connections: Moderately Isolated (01/27/2020) Received from [facility] Social Connection and Isolation Panel [NHANES] Frequency of Communication with Friends and Family: More than three times a week Frequency of Social Gatherings with Friends and Family: Twice a week Attends Jewish Services: Never Active Member of Clubs or Organizations: No Attends Club or Organization Meetings: Never Marital Status: Housing Stability: Low Risk (01/27/2020) Received from [facility] Housing Stability Vital [...] Other ( (more content not included)... Normal [facility] CT ABDOMEN PELVIS WITH IV CO [...] left salpingo-oophorectomy. Ultrasound follow-up could be considered. [employer] Workstation ID: [id number] Dictated by: JOHANNA MARCH on MonApr 01, 2024 11:57:43 AM EST Transcribed by: CATINA GENTILE on MonApr 01, 2024 12:07:32 PM EST Finalized by: JOHANNA MARCH on MonApr 01, 2024 9:03:59 PM EST Normal [facility] Comment on above: Order Comment: Injur y/Trauma or Illness?:Illness/Other How long have you had these symptoms (acute/chronic)?:Acute Reason for exam?:sudden onset of lower abd and right sided back pain in the night hx of ovarian cyst and endometreosis Type of Exam?:Initial Additional signs and symptoms?:na ED Prov Noteon 04-01-2024 ED Prov Note ED PROVIDER NOTE [facility] NAME: Lana Rivera AGE: 38 y.o. : 1985 VISIT DATE: 04/01/2024 CSN: [id number] PCP: Aleena London MD Chief Complaint Patient [...] Resource Strain: High Risk (02/19/2020) Received from [facility] Overall Financial Resource Strain (CARDIA) Difficulty of Paying Living Expenses: Hard Food Insecurity: No Food Insecurity (02/19/2020) Received from [facility] Hunger Vital Sign Worried About Running Out of Food in the Last Year: Never true Ran Out of Food in the Last Year: Never true Transportation Needs: No Transportation Needs (02/19/2020) Received from [facility] PRAPARE - Transportation Lack of Transportation (Medical): No Lack of Transportation (Non-Medical): No Physical Activity: Insufficiently Active (01/27/2020) Received from [facility] Exercise Vital Sign Days of Exercise per Week: 2 days Minutes of Exercise per Session: 20 min Stress: No Stress Concern Present (01/27/2020) Received from [facility] [place] [facility] [employer] [facility] - Occupational Stress Questionnaire Feeling of Stress : Only a little Social Connections: Moderately Isolated (01/27/2020) Received from [facility] Social Connection and Isolation Panel [NHANES] Frequency of Communication with Friends and Family: More than three times a week Frequency of Social Gatherings with Friends and Family: Twice a week Attends Jewish Services: Never Active Member of Clubs or Organizations: No Attends Club or Organization Meetings: Never Marital Status: Housing Stability: Low Risk (01/27/2020) [facility] Housing Stability Vital Sign Unable to Pay [...] Allergen Reactions Hydrocod (more content not included)... Normal [facility] POC BASIC METABOLIC PANEL - Seda 04-01-2024 Chloride [Moles/Vol] 105 mmol/L Normal 98-108 [facility] Comment on above: Order Comment: Injur y/Trauma or Illness?:Illness/Other How long have you had these symptoms (acute/chronic)?:Acute Reason for exam?:sudden onset of lower abd and right sided back pain in the night hx of ovarian cyst and endometreosis Type of Exam?:Initial Additional signs and symptoms?:na CO2 [Moles/Vol] 25 mmol/L Normal 21-32 [facility] Comment on above: Order Comment: Injur y/Trauma or Illness?:Illness/Other How long have you had these symptoms (acute/chronic)?:Acute Reason for exam?:sudden onset of lower abd and right sided back pain in the night hx of ovarian cyst and endometreosis Type of Exam?:Initial Additional signs and symptoms?:na Creatinine [Mass/Vol] 0.60 mg/dL Normal 0.40-1.10 [facility] Comment on above: Order Comment: Injur y/Trauma or Illness?:Illness/Other How long have you had these symptoms (acute/chronic)?:Acute Reason for exam?:sudden onset of lower abd and right sided back pain in the night hx of ovarian cyst and endometreosis Type of Exam?:Initial Additional signs and symptoms?:na Glucose [Mass/Vol] 139 mg/dL High 65-99 [facility] Comment on above: Order Comment: Injur y/Trauma or Illness?:Illness/Other How long have you had these symptoms (acute/chronic)?:Acute Reason for exam?:sudden onset of lower abd and right sided back pain in the night hx of ovarian cyst and endometreosis Type of Exam?:Initial Additional signs and symptoms?:na POC GFR 119 mL/min/1.73 m2 Normal >=60 [facility] Comment on above: Order Comment: Injur y/Trauma or Illness?:Illness/Other How long have you had these symptoms (acute/chronic)?:Acute Reason for exam?:sudden onset of lower abd and right sided back pain in the night hx of ovarian cyst and endometreosis Type of Exam?:Initial Additional signs and symptoms?:na Result Comment: Bria mated GFR was calculated using the 2020 CKD-EPI creatinine equation. POC IONIZED CALCIUM 4.7 mg/dL Normal 4.5-5.3 [facility] Comment on above: Order Comment: Injur y/Trauma or Illness?:Illness/Other How long have you had these symptoms (acute/chronic)?:Acute Reason for exam?:sudden onset of lower abd and right sided back pain in the night hx of ovarian cyst and endometreosis Type of Exam?:Initial Additional signs and symptoms?:na Potassium [Moles/Vol] 4.0 mmol/L Normal 3.5-5.1 [facility] Comment on above: Order Comment: Injur y/Trauma or Illness?:Illness/Other How long have you had these symptoms (acute/chronic)?:Acute Reason for exam?:sudden onset of lower abd and right sided back pain in the night hx of ovarian cyst and endometreosis Type of Exam?:Initial Additional signs and symptoms?:na Sodium [Moles/Vol] 141 mmol/L Normal 135-145 [facility] Comment on above: Order Comment: Injur y/Trauma or Illness?:Illness/Other How long have you had these symptoms (acute/chronic)?:Acute Reason for exam?:sudden onset of lower abd and right sided back pain in the night hx of ovarian cyst and endometreosis Type of Exam?:Initial Additional signs and symptoms?:na Urea nitrogen [Mass/Vol] 9 mg/dL Normal 8-25 [facility] Comment on above: Order Comment: Injur y/Trauma or Illness?:Illness/Other How long have you had these symptoms (acute/chronic)?:Acute Reason for exam?:sudden onset of lower abd and right sided back pain in the night hx of ovarian cyst and endometreosis Type of Exam?:Initial Additional signs and symptoms?:na POC CBC AND DIFFERENTIALon 1 06-01-2023 BASOPHILS ABSOLUTE COUNT 0.02 K/mcL Normal 0.00-0.30 [facility] Basophils/100 WBC (Bld) 0.4 % Normal [facility] Eosinophils (Bld) [#/Vol] 0.26 10*3/uL Normal 0.00-0.50 [facility] Eosinophils/100 WBC (Bld) 4.7 % Normal [facility] Erythrocyte distribution width (RBC) [Ratio] 12.6 % Normal 11.6-14.8 [facility] Hematocrit (Bld) [Volume fraction] 44.1 % Normal 36.0-46.0 [facility] Hemoglobin (Bld) [Mass/Vol] 14.8 g/dL Normal 12.0-16.0 [facility] IG ABSOLUTE 0.01 K/mcL Normal 0.00-0.30 [facility] IG PERCENT 0.20 % Normal [facility] Comment on above: Result Comment: The IG parameter is the percentage of metamyelocytes, myelocytes and promyelocytes. An immature granulocyte count (IG) of 1% or more suggests the possibility of infection, an IG count of 3% is very likely related to an infection. Lymphocytes (Bld) [#/Vol] 1.46 10*3/uL Normal 0.90-4.00 [facility] Lymphocytes/100 WBC (Bld) 26.3 % Normal [facility] MCH (RBC) [Entitic mass] 28.9 pg Normal 26.0-34.0 [facility] MCV (RBC) [Entitic vol] 86.1 fL Normal 80.0-100.0 [facility] MEAN CORPUSCULAR HEMOGLOBIN CONC 33.6 g/dL Normal 31.0-37.0 [facility] Monocytes (Bld) [#/Vol] 0.42 10*3/uL Normal 0.30-0.90 [facility] Monocytes/100 WBC (Bld) 7.6 % Normal [facility] NEUTROPHILS ABSOLUTE COUNT 3.39 K/mcL Normal 1.70-7.00 [facility] Neutrophils/100 WBC (Bld) 60.8 % Normal [facility] Platelet mean volume (Bld) [Entitic vol] 11.0 fL Normal 9.4-12.4 [facility] Platelets (Bld) [#/Vol] 173 10*3/uL Normal 150-400 [facility] RBC (Bld) [#/Vol] 5.12 10*6/uL Normal 4.00-5.20 [facility] WBC (Bld) [#/Vol] 5.56 10*3/uL Normal 4.50-11.00 [facility] POC LIVER PANEL PLUS [facility] 04-01-2024 Albumin [Mass/Vol] 4.0 g/dL Normal 3.2-5.2 [facility] ALP [Catalytic activity/Vol] 57 U/L Normal 40-140 [facility] ALT [Catalytic activity/Vol] 29 U/L Normal 0-40 [facility] Amylase [Catalytic activity/Vol] 24 U/L Low 25-115 [facility] Amylase [Catalytic activity/Vol] 17 U/L Normal 7-33 [facility] AST [Catalytic activity/Vol] 28 U/L Normal 0-45 [facility] Bilirubin [Mass/Vol] 0.6 mg/dL Normal 0.0-1.3 [facility] Protein [Mass/Vol] 7.2 g/dL Normal 6.0-8.0 [facility] POC , URINE - [facility] 04-01-2024 Beta HCG ( test) Ql (U) Negative Normal Negative [facility] Comment on above: Order Comment: Injur y/Trauma or Illness?:Illness/Other How long have you had these symptoms (acute/chronic)?:Acute Reason for exam?:sudden onset of lower abd and right sided back pain in the night hx of ovarian cyst and endometreosis Type of Exam?:Initial Additional signs and symptoms?:na POC URINALYSIS DIPSTICK,AUTO - [facility] 04-01-2024 POC BILIRUBIN, URINE Negative Normal Negative [facility] POC BLOOD, URINE Negative Normal Negative [facility] POC GLUCOSE, URINE Negative Normal Negative [facility] POC KETONES, URINE Negative Normal Negative [facility] POC LEUKOCYTE ESTERASE, URINE Negative Normal Negative [facility] POC NITRITE, URINE Negative Normal Negative [facility] POC PH, URINE 6.5 Normal 5.0-7.0 [facility] POC PROTEIN, URINE Negative Normal Negative [facility] POC SPECIFIC GRAVITY 1.025 Normal 1.005-1.025 [facility] POC UROBILINOGEN 0.2 mg/dL Normal < 2.0 [facility] ED Prov Noteon 03-17-2024 ED Prov Note ED PROVIDER NOTE [facility] NAME: Lana Rivera AGE: 38 y.o. : 1985 VISIT DATE: 03/17/2024 CSN: [id number] PCP: Aleena London MD Chief Complaint Patient [...] Resource Strain: High Risk (02/19/2020) Received from [facility] Overall Financial Resource Strain (CARDIA) Difficulty of Paying Living Expenses: Hard Food Insecurity: No Food Insecurity (02/19/2020) Received from [facility] Hunger Vital Sign Worried About Running Out of Food in the Last Year: Never true Ran Out of Food in the Last Year: Never true Transportation Needs: No Transportation Needs (02/19/2020) Received from [facility] PRAPARE - Transportation Lack of Transportation (Medical): No Lack of Transportation (Non-Medical): No Physical Activity: Insufficiently Active (01/27/2020) Received from [facility] Exercise Vital Sign Days of Exercise per Week: 2 days Minutes of Exercise per Session: 20 min Stress: No Stress Concern Present (01/27/2020) Received from [facility] [place] [facility] - Occupational Stress Questionnaire Feeling of Stress : Only a little Social Connections: Moderately Isolated (01/27/2020) Received from [facility] Social Connection and Isolation Panel [NHANES] Frequency of Communication with Friends and Family: More than three times a week Frequency of Social Gatherings with Friends and Family: Twice a week Attends Jewish Services: Never Active Member of Clubs or Organizations: No Attends Club or Organization Meetings: Never Marital Status: Housing Stability: Low Risk (01/27/2020) Received from [facility] Housing Stability Vital [...] nausea . prochlorpe (more content not included)... [facility] XR CERVICAL SPINE COMPLETE 4 -5 VIEWS [...] Upper lung zones are clear. [facility] Workstation ID: [id number] Dictated by: COLE PALM on [place] Mar 17, 2024 9:20:05 AM EDT Transcribed by: FLO MOSS on [place] Mar 17, 2024 9:48:26 AM EDT Finalized by: COLE PALM on [place] Mar 17, 2024 5:13:59 PM EDT [facility] Comment on above: Order Comment: Injur y/Trauma or Illness?:Illness/Other How long have you had these symptoms (acute/chronic)?:Acute Reason for exam?:sudden onset of lower abd and right sided back pain in the night hx of ovarian cyst and endometreosis Type of Exam?:Initial Additional signs and symptoms?:na CT ANGIOGRAM ABDOMEN PELVISo n 03-11-2024 CT [...] on MonMar 11, 2024 12:13:13 PM EDT [facility] Comment on above: Order Comment: Injur y/Trauma or Illness?:Illness/Other How long have you had these symptoms (acute/chronic)?:Acute Reason for exam?:lower GI bleed with abd pain Type of Exam?:Initial Additional signs and symptoms?:na ED Prov Noteon 03-11-2024 ED Prov Note ED PROVIDER NOTE [facility] NAME: Lana Rivera AGE: 38 y.o. : 1985 VISIT DATE: 03/11/2024 CSN: [id number] PCP: Aleena London MD Chief Complaint Patient [...] Resource Strain: High Risk (02/19/2020) Received from [facility] Overall Financial Resource Strain (CARDIA) Difficulty of Paying Living Expenses: Hard Food Insecurity: No Food Insecurity (02/19/2020) Received from [facility] Hunger Vital Sign Worried About Running Out of Food in the Last Year: Never true Ran Out of Food in the Last Year: Never true Transportation Needs: No Transportation Needs (02/19/2020) Received from [facility] PRAPARE - Transportation Lack of Transportation (Medical): No Lack of Transportation (Non-Medical): No Physical Activity: Insufficiently Active (01/27/2020) Received from [facility] Exercise Vital Sign Days of Exercise per Week: 2 days Minutes of Exercise per Session: 20 min Stress: No Stress Concern Present (01/27/2020) Received from [facility] [place] [facility] - Occupational Stress Questionnaire Feeling of Stress : Only a little Social Connections: Moderately Isolated (01/27/2020) Received from [facility] Social Connection and Isolation Panel [NHANES] Frequency of Communication with Friends and Family: More than three times a week Frequency of Social Gatherings with Friends and Family: Twice a week Attends Jewish Services: Never Active Member of Clubs or Organizations: No Attends Club or Organization Meetings: Never Marital Status: Housing Stability: Low Risk (01/27/2020) Received from [facility] Housing Stability Vital [...] TAKE WI (more content not included)... Normal [facility] POC BASIC METABOLIC PANEL - [facility]eda 03-11-2024 Chloride [Moles/Vol] 104 mmol/L Normal 98-108 [facility] Comment on above: Order Comment: Injur y/Trauma or Illness?:Illness/Other How long have you had these symptoms (acute/chronic)?:Acute Reason for exam?:sudden onset of lower abd and right sided back pain in the night hx of ovarian cyst and endometreosis Type of Exam?:Initial Additional signs and symptoms?:na CO2 [Moles/Vol] 26 mmol/L Normal 21-32 [facility] Comment on above: Order Comment: Injur y/Trauma or Illness?:Illness/Other How long have you had these symptoms (acute/chronic)?:Acute Reason for exam?:sudden onset of lower abd and right sided back pain in the night hx of ovarian cyst and endometreosis Type of Exam?:Initial Additional signs and symptoms?:na Creatinine [Mass/Vol] 0.64 mg/dL Normal 0.40-1.10 [facility] Comment on above: Order Comment: Injur y/Trauma or Illness?:Illness/Other How long have you had these symptoms (acute/chronic)?:Acute Reason for exam?:sudden onset of lower abd and right sided back pain in the night hx of ovarian cyst and endometreosis Type of Exam?:Initial Additional signs and symptoms?:na Glucose [Mass/Vol] 108 mg/dL High 65-99 [facility] Comment on above: Order Comment: Injur y/Trauma or Illness?:Illness/Other How long have you had these symptoms (acute/chronic)?:Acute Reason for exam?:sudden onset of lower abd and right sided back pain in the night hx of ovarian cyst and endometreosis Type of Exam?:Initial Additional signs and symptoms?:na POC GFR 118 mL/min/1.73 m2 Normal >=60 [facility] Comment on above: Order Comment: Injur y/Trauma or Illness?:Illness/Other How long have you had these symptoms (acute/chronic)?:Acute Reason for exam?:sudden onset of lower abd and right sided back pain in the night hx of ovarian cyst and endometreosis Type of Exam?:Initial Additional signs and symptoms?:na Result Comment: Bria mated GFR was calculated using the 2020 CKD-EPI creatinine equation. POC IONIZED CALCIUM 4.9 mg/dL Normal 4.5-5.3 [facility] Comment on above: Order Comment: Injur y/Trauma or Illness?:Illness/Other How long have you had these symptoms (acute/chronic)?:Acute Reason for exam?:sudden onset of lower abd and right sided back pain in the night hx of ovarian cyst and endometreosis Type of Exam?:Initial Additional signs and symptoms?:na Potassium [Moles/Vol] 3.8 mmol/L Normal 3.5-5.1 [facility] Comment on above: Order Comment: Injur y/Trauma or Illness?:Illness/Other How long have you had these symptoms (acute/chronic)?:Acute Reason for exam?:sudden onset of lower abd and right sided back pain in the night hx of ovarian cyst and endometreosis Type of Exam?:Initial Additional signs and symptoms?:na Sodium [Moles/Vol] 142 mmol/L Normal 135-145 [facility] Comment on above: Order Comment: Injur y/Trauma or Illness?:Illness/Other How long have you had these symptoms (acute/chronic)?:Acute Reason for exam?:sudden onset of lower abd and right sided back pain in the night hx of ovarian cyst and endometreosis Type of Exam?:Initial Additional signs and symptoms?:na Urea nitrogen [Mass/Vol] 8 mg/dL Normal 8-25 [facility] Comment on above: Order Comment: Injur y/Trauma or Illness?:Illness/Other How long have you had these symptoms (acute/chronic)?:Acute Reason for exam?:sudden onset of lower abd and right sided back pain in the night hx of ovarian cyst and endometreosis Type of Exam?:Initial Additional signs and symptoms?:na POC CBC AND DIFFERENTIALon BASOPHILS ABSOLUTE COUNT 0.02 K/mcL Normal 0.00-0.30 [facility] Basophils/100 WBC (Bld) 0.4 % Normal [facility] Eosinophils (Bld) [#/Vol] 0.22 10*3/uL Normal 0.00-0.50 [facility] Eosinophils/100 WBC (Bld) 4.8 % Normal [facility] Erythrocyte distribution width (RBC) [Ratio] 12.8 % Normal 11.6-14.8 [facility] Hematocrit (Bld) [Volume fraction] 42.6 % Normal 36.0-46.0 [facility] Hemoglobin (Bld) [Mass/Vol] 14.2 g/dL Normal 12.0-16.0 [facility] IG ABSOLUTE 0.01 K/mcL Normal 0.00-0.30 [facility] IG PERCENT 0.20 % Normal [facility] Comment on above: Result Comment: The IG parameter is the percentage of metamyelocytes, myelocytes and promyelocytes. An immature granulocyte count (IG) of 1% or more suggests the possibility of infection, an IG count of 3% is very likely related to an infection. Lymphocytes (Bld) [#/Vol] 1.47 10*3/uL Normal 0.90-4.00 [facility] Lymphocytes/100 WBC (Bld) 32.0 % Normal [facility] MCH (RBC) [Entitic mass] 28.7 pg Normal 26.0-34.0 [facility] MCV (RBC) [Entitic vol] 86.1 fL Normal 80.0-100.0 [facility] MEAN CORPUSCULAR HEMOGLOBIN CONC 33.3 g/dL Normal 31.0-37.0 [facility] Monocytes (Bld) [#/Vol] 0.43 10*3/uL Normal 0.30-0.90 [facility] Monocytes/100 WBC (Bld) 9.4 % Normal [facility] NEUTROPHILS ABSOLUTE COUNT 2.44 K/mcL Normal 1.70-7.00 [facility] Neutrophils/100 WBC (Bld) 53.2 % Normal [facility] Platelet mean volume (Bld) [Entitic vol] 10.8 fL Normal 9.4-12.4 [facility] Platelets (Bld) [#/Vol] 149 10*3/uL Low 150-400 [facility] RBC (Bld) [#/Vol] 4.95 10*6/uL Normal 4.00-5.20 [facility] WBC (Bld) [#/Vol] 4.59 10*3/uL Normal 4.50-11.00 [facility] POC PT-INR - Seda 03-11-20 POC INR (SIG ELITE) 1.4 High 0.8-1.1 [facility] ED Prov Noteon 03-07-2024 ED Prov Note HPI: 03/07/2024, Time: @NOWBOB@ [facility] Miguel is a 38 y.o. female presenting to [...] are negative. PAST HISTORY Past Medical History: @[facility]@ Past Surgical History: has a past surgical [...] left wrist (more content not included)... Normal [facility] ED Prov Noteon 03-04-2024 ED Prov Note [place] ED Physician Note: NAME: Lana Rivera 38 y.o. CSN: [id number] PCP: Aleena London MD ED Course / [...] Resource Strain: High Risk (02/19/2020) Received from [facility] Overall Financial Resource Strain (CARDIA) Difficulty of Paying Living Expenses: Hard Food Insecurity: No Food Insecurity (02/19/2020) Received from [facility] Hunger Vital Sign Worried About Running Out of Food in the Last Year: Never true Ran Out of Food in the Last Year: Never true Transportation Needs: No Transportation Needs (02/19/2020) Received from [facility] PRAPARE - Transportation Lack of Transportation (Medical): No Lack of Transportation (Non-Medical): No Physical Activity: Insufficiently Active (01/27/2020) Received from [facility] Exercise Vital Sign Days of Exercise per Week: 2 days Minutes of Exercise per Session: 20 min Stress: No Stress Concern Present (01/27/2020) Received from [facility] of Occupational Health - Occupational Stress Questionnaire Feeling of Stress : Only a little Social Connections: Moderately Isolated (01/27/2020) Received from [facility] Social Connection and Isolation Panel [NHANES] Frequency of Communication with Friends and Family: More than three times a week Frequency of Social Gatherings with Friends and Family: Twice a week Attends Jewish Services: Never Active Member of Clubs or Organizations: No Attends Club or Organization Meetings: Never Marital Status: Housing Stability: Low Risk (01/27/2020) Received from [facility] Housing Stability Vital [...] a day as (more content not included)... [facility] XR FOREARM LEFT 2 VIEWSon XR FOREARM [...] ulnar shaft fractures with intact fixation hardware. [employer] Workstation ID: [id number] Dictated by: JOHANNA MARCH on MonMar 04, 2024 1:11:34 PM EDT Transcribed by: FLO MOSS on MonMar 04, 2024 1:13:46 PM EDT Finalized by: JOHANNA MARCH on MonMar 04, 2024 10:23:51 PM EDT [facility] Comment on above: Order Comment: Injur y/Trauma or Illness?:Illness/Other How long have you had these symptoms (acute/chronic)?:Acute Reason for exam?:lower GI bleed with abd pain Type of Exam?:Initial Additional signs and symptoms?:na XR HAND LEFT 3+ VIEWS (STAND SHELLY)on [...] normal limits. IMPRESSION: No acute osseous abnormality. [employer] Workstation ID: [id number] Dictated by: JOHANNA MARCH on MonMar 04, 2024 1:16:35 PM EDT Transcribed by: FLO MOSS on MonMar 04, 2024 1:21:46 PM EDT Finalized by: JOHANNA MARCH on MonMar 04, 2024 10:23:57 PM EDT [facility] Comment on above: Order Comment: Injur y/Trauma or Illness?:Illness/Other How long have you had these symptoms (acute/chronic)?:Acute Reason for exam?:lower GI bleed with abd pain Type of Exam?:Initial Additional signs and symptoms?:na XR WRIST LEFT 3+ VIEWS (MOI DARD)on 03-04-2024 XR WRIST LEFT 3+ VIEWS (STANDARD) [...] normal limits. IMPRESSION: No acute osseous abnormality. [facility] Workstation ID: [id number] Dictated by: JOHANNA MARCH on MonMar 04, 2024 1:13:20 PM EDT Transcribed by: FLO MOSS on MonMar 04, 2024 1:17:08 PM EDT Finalized by: JOHANNA MARCH on MonMar 04, 2024 10:27:17 PM EDT [facility] Comment on above: Order Comment: Injur y/Trauma or Illness?:Illness/Other How long have you had these symptoms (acute/chronic)?:Acute Reason for exam?:sudden onset of lower abd and right sided back pain in the night hx of ovarian cyst and endometreosis Type of Exam?:Initial Additional signs and symptoms?:na ED Prov Noteon 02-23-2024 ED Prov Note [facility] ATTENDING NOTE: NAME: Lana Rivera CSN: [id number] 38 y.o. PCP: Aleena London MD History: [...] of Percocet until she may follow-up with [facility]. After reviewing the items above, I did [...] Never Vaping Use (more content not included)... Normal [facility] CT ABDOMEN PELVIS WITH IV CO [...] on MonFeb 20, 2024 11:00:04 AM EDT [facility] Comment on above: Order Comment: Injur y/Trauma or Illness?:Illness/Other How long have you had these symptoms (acute/chronic)?:Acute Reason for exam?:lower GI bleed with abd pain Type of Exam?:Initial Additional signs and symptoms?:na ED Prov Noteon 02-20-2024 ED Prov Note ED PROVIDER NOTE [facility] NAME: Lana Rivera AGE: 38 y.o. : 1985 VISIT DATE: 02/20/2024 CSN: [id number] PCP: Aleena London MD Chief Complaint Patient [...] Resource Strain: High Risk (02/19/2020) Received from [facility] Overall Financial Resource Strain (CARDIA) Difficulty of Paying Living Expenses: Hard Food Insecurity: No Food Insecurity (02/19/2020) Received from [facility] Hunger Vital Sign Worried About Running Out of Food in the Last Year: Never true Ran Out of Food in the Last Year: Never true Transportation Needs: No Transportation Needs (02/19/2020) Received from [facility] PRAPARE - Transportation Lack of Transportation (Medical): No Lack of Transportation (Non-Medical): No Physical Activity: Insufficiently Active (01/27/2020) Received from [facility] Exercise Vital Sign Days of Exercise per Week: 2 days Minutes of Exercise per Session: 20 min Stress: No Stress Concern Present (01/27/2020) Received from [facility] [place] of Occupational Health - Occupational Stress Questionnaire Feeling of Stress : Only a little Social Connections: Moderately Isolated (01/27/2020) Received from [facility] Social Connection and Isolation Panel [NHANES] Frequency of Communication with Friends and Family: More than three times a week Frequency of Social Gatherings with Friends and Family: Twice a week Attends Jewish Services: Never Active Member of Clubs or Organizations: No Attends Club or Organization Meetings: Never Marital Status: Housing Stability: Low Risk (01/27/2020) [facility] Housing Stability Vital Sign Unable to Pay [...] systems revie (more content not included)... Normal [facility] POC CBC AND DIFFERENTIALon 1 BASOPHILS ABSOLUTE COUNT 0.03 K/mcL Normal 0.00-0.30 [facility] Basophils/100 WBC (Bld) 0.7 % Normal [facility] Eosinophils (Bld) [#/Vol] 0.17 10*3/uL Normal 0.00-0.50 [facility] Eosinophils/100 WBC (Bld) 3.9 % Normal [facility] Erythrocyte distribution width (RBC) [Ratio] 13.2 % Normal 11.6-14.8 [facility] Hematocrit (Bld) [Volume fraction] 42.1 % Normal 36.0-46.0 [facility] Hemoglobin (Bld) [Mass/Vol] 13.9 g/dL Normal 12.0-16.0 [facility] IG ABSOLUTE 0.02 K/mcL Normal 0.00-0.30 [facility] IG PERCENT 0.50 % Normal [facility] Comment on above: Result Comment: The IG parameter is the percentage of metamyelocytes, myelocytes and promyelocytes. An immature granulocyte count (IG) of 1% or more suggests the possibility of infection, an IG count of 3% is very likely related to an infection. Lymphocytes (Bld) [#/Vol] 1.20 10*3/uL Normal 0.90-4.00 [facility] Lymphocytes/100 WBC (Bld) 27.8 % Normal [facility] MCH (RBC) [Entitic mass] 28.6 pg Normal 26.0-34.0 [facility] MCV (RBC) [Entitic vol] 86.6 fL Normal 80.0-100.0 [facility] MEAN CORPUSCULAR HEMOGLOBIN CONC 33.0 g/dL Normal 31.0-37.0 [facility] Monocytes (Bld) [#/Vol] 0.39 10*3/uL Normal 0.30-0.90 [facility] Monocytes/100 WBC (Bld) 9.0 % Normal [facility] NEUTROPHILS ABSOLUTE COUNT 2.51 K/mcL Normal 1.70-7.00 [facility] Neutrophils/100 WBC (Bld) 58.1 % Normal [facility] Platelet mean volume (Bld) [Entitic vol] 11.0 fL Normal 9.4-12.4 [facility] Platelets (Bld) [#/Vol] 161 10*3/uL Normal 150-400 [facility] RBC (Bld) [#/Vol] 4.86 10*6/uL Normal 4.00-5.20 [facility] WBC (Bld) [#/Vol] 4.32 10*3/uL Low 4.50-11.00 [facility] POC LIVER PANEL PLUS [facility] 02-20-2024 Albumin [Mass/Vol] 4.0 g/dL Normal 3.2-5.2 [facility] ALP [Catalytic activity/Vol] 52 U/L Normal 40-140 [facility] ALT [Catalytic activity/Vol] 29 U/L Normal 0-40 [facility] Amylase [Catalytic activity/Vol] 26 U/L Normal 25-115 [facility] Amylase [Catalytic activity/Vol] 16 U/L Normal 7-33 [facility] AST [Catalytic activity/Vol] 25 U/L Normal 0-45 [facility] Bilirubin [Mass/Vol] 0.7 mg/dL Normal 0.0-1.3 [facility] Protein [Mass/Vol] 6.8 g/dL Normal 6.0-8.0 [facility] POC , URINE - [facility] n 02-20-2024 Beta HCG ( test) Ql (U) Negative Normal Negative [facility] Comment on above: Order Comment: Negat jimmie: Dilute urine specimens, as indicated by a low specific gravity (<1.010) may not contain representitive levels of hCG. If is still suspected, a serum test or repeat urine test using a first morning urine specimen should be considered. POC PT-INR - [facility] 02-20-20 24 POC INR (SIG ELITE) 1.7 High 0.8-1.1 [facility] POC URINALYSIS DIPSTICK,AUTO - [facility] 02-20-2024 POC BILIRUBIN, URINE Negative Normal Negative [facility] POC BLOOD, URINE Negative Normal Negative [facility] POC GLUCOSE, URINE Negative Normal Negative [facility] POC KETONES, URINE Negative Normal Negative [facility] POC LEUKOCYTE ESTERASE, URINE Negative Normal Negative [facility] POC NITRITE, URINE Negative Normal Negative [facility] POC PH, URINE 7.0 Normal 5.0-7.0 [facility] POC PROTEIN, URINE Negative Normal Negative [facility] POC SPECIFIC GRAVITY 1.020 Normal 1.005-1.025 [facility] POC UROBILINOGEN 0.2 mg/dL Normal < 2.0 [facility] POC VBG (EPOC) WITH FULL BARNES EL - [facility] 02-20-2024 BASE EXCESS, VENOUS -0.6 Normal -2.0-2.0 [facility] Comment on above: Order Comment: Negat jimmie: Dilute urine specimens, as indicated by a low specific gravity (<1.010) may not contain representitive levels of hCG. If is still suspected, a serum test or repeat urine test using a first morning urine specimen should be considered. CALCIUM IONIZED 4.7 mg/dL Normal 4.5-5.3 [facility] Comment on above: Order Comment: Negat jimmie: Dilute urine specimens, as indicated by a low specific gravity (<1.010) may not contain representitive levels of hCG. If is still suspected, a serum test or repeat urine test using a first morning urine specimen should be considered. Chloride [Moles/Vol] 105 mmol/L Normal 98-108 [facility] Comment on above: Order Comment: Negat jimmie: Dilute urine specimens, as indicated by a low specific gravity (<1.010) may not contain representitive levels of hCG. If is still suspected, a serum test or repeat urine test using a first morning urine specimen should be considered. Creatinine [Mass/Vol] 0.73 mg/dL Normal 0.40-1.10 [facility] Comment on above: Order Comment: Negat jimmie: Dilute urine specimens, as indicated by a low specific gravity (<1.010) may not contain representitive levels of hCG. If is still suspected, a serum test or repeat urine test using a first morning urine specimen should be considered. Glucose [Mass/Vol] 117 mg/dL High 65-99 [facility] Comment on above: Order Comment: Negat jimmie: Dilute urine specimens, as indicated by a low specific gravity (<1.010) may not contain representitive levels of hCG. If is still suspected, a serum test or repeat urine test using a first morning urine specimen should be considered. HCO3 (Bld) [Moles/Vol] 24.9 mmol/L Normal 24.0-28.[address] [facility] Comment on above: Order Comment: Negat jimmie: Dilute urine specimens, as indicated by a low specific gravity (<1.010) may not contain representitive levels of hCG. If is still suspected, a serum test or repeat urine test using a first morning urine specimen should be considered. Hematocrit (Bld) [Volume fraction] 42 % Normal 36-46 [facility] Comment on above: Order Comment: Negat jimmie: Dilute urine specimens, as indicated by a low specific gravity (<1.010) may not contain representitive levels of hCG. If is still suspected, a serum test or repeat urine test using a first morning urine specimen should be considered. HEMOGLOBIN, CALCULATED 14.2 g/dL Normal 12.0-16.0 [facility] Comment on above: Order Comment: Negat jimmie: Dilute urine specimens, as indicated by a low specific gravity (<1.010) may not contain representitive levels of hCG. If is still suspected, a serum test or repeat urine test using a first morning urine specimen should be considered. Oxygen saturation in Blood 55.2 % Normal 40.0-70.0 [facility] Comment on above: Order Comment: Negat jimmie: Dilute urine specimens, as indicated by a low specific gravity (<1.010) may not contain representitive levels of hCG. If is still suspected, a serum test or repeat urine test using a first morning urine specimen should be considered. PCO2 VENOUS 43.0 mm Hg Normal 41.0-51.0 [facility] Comment on above: Order Comment: Negat jimmie: Dilute urine specimens, as indicated by a low specific gravity (<1.010) may not contain representitive levels of hCG. If is still suspected, a serum test or repeat urine test using a first morning urine specimen should be considered. PH VENOUS 7.37 Normal 7.32-7.42 [facility] Comment on above: Order Comment: Negat jimmie: Dilute urine specimens, as indicated by a low specific gravity (<1.010) may not contain representitive levels of hCG. If is still suspected, a serum test or repeat urine test using a first morning urine specimen should be considered. PO2 VENOUS 30 mm Hg Normal 25-40 [facility] Comment on above: Order Comment: Negat jimmie: Dilute urine specimens, as indicated by a low specific gravity (<1.010) may not contain representitive levels of hCG. If is still suspected, a serum test or repeat urine test using a first morning urine specimen should be considered. POC GFR 109 mL/min/1.73 m2 Normal >=60 [facility] Comment on above: Order Comment: Negat jimmie: Dilute urine specimens, as indicated by a low specific gravity (<1.010) may not contain representitive levels of hCG. If is still suspected, a serum test or repeat urine test using a first morning urine specimen should be considered. Result Comment: Bria mated GFR was calculated using the 2020 CKD-EPI creatinine equation. POC LACTATE 1.3 mmol/L Normal 0.6-2.0 [facility] Comment on above: Order Comment: Negat jimmie: Dilute urine specimens, as indicated by a low specific gravity (<1.010) may not contain representitive levels of hCG. If is still suspected, a serum test or repeat urine test using a first morning urine specimen should be considered. Potassium [Moles/Vol] 3.9 mmol/L Normal 3.5-5.1 [facility] Comment on above: Order Comment: Negat jimmie: Dilute urine specimens, as indicated by a low specific gravity (<1.010) may not contain representitive levels of hCG. If is still suspected, a serum test or repeat urine test using a first morning urine specimen should be considered. Sodium [Moles/Vol] 139 mmol/L Normal 135-145 [facility] Comment on above: Order Comment: Negat jimmie: Dilute urine specimens, as indicated by a low specific gravity (<1.010) may not contain representitive levels of hCG. If is still suspected, a serum test or repeat urine test using a first morning urine specimen should be considered. Urea nitrogen [Mass/Vol] 8 mg/dL Normal 8-25 [facility] Comment on above: Order Comment: Negat jimmie: Dilute urine specimens, as indicated by a low specific gravity (<1.010) may not contain representitive levels of hCG. If is still suspected, a serum test or repeat urine test using a first morning urine specimen should be considered. ED Prov Noteon 02-14-2024 ED Prov Note HPI: 02/14/2024, Time: @NOWNR@ Lana Rivera is a 38 y.o. female [...] are negative. PAST HISTORY Past Medical History: @[facility]@ Past Surgical History: has a past surgical [...] fill: 3) . Follow-up: Aleena London MD [id number] [facility] [id number] In 3 days Final Impression: 1. Right ovarian cyst (Please note that portions of this note were completed with a voice recognition program. Efforts were made to edit the dictations but occasionally words are mis-transcribed.) Libertad Foster MD 02/14/24 1221 AUTHENTICATED BY LIBERTAD FOSTER, ON 02/14/2024 12:21:14 [facility] ED Prov Noteon 02-11-2024 ED Prov Note ED PROVIDER NOTE [facility] NAME: Lana Rivera AGE: 38 y.o. : 1985 VISIT DATE: 02/11/2024 CSN: [id number] PCP: Aleena London MD Chief Complaint Patient [...] Resource Strain: High Risk (02/19/2020) Received from [facility] Overall Financial Resource Strain (CARDIA) Difficulty of Paying Living Expenses: Hard Food Insecurity: No Food Insecurity (02/19/2020) Received from [facility] Hunger Vital Sign Worried About Running Out of Food in the Last Year: Never true Ran Out of Food in the Last Year: Never true Transportation Needs: No Transportation Needs (02/19/2020) Received from [facility] PRAPARE - Transportation Lack of Transportation (Medical): No Lack of Transportation (Non-Medical): No Physical Activity: Insufficiently Active (01/27/2020) Received from [facility] Exercise Vital Sign Days of Exercise per Week: 2 days Minutes of Exercise per Session: 20 min Stress: No Stress Concern Present (01/27/2020) Received from [facility] [place] of [facility]ational Health - Occupational Stress Questionnaire Feeling of Stress : Only a little Social Connections: Moderately Isolated (01/27/2020) Received from [facility] Social Connection and Isolation Panel [NHANES] Frequency of Communication with Friends and Family: More than three times a week Frequency of Social Gatherings with Friends and Family: Twice a week Attends Jewish Services: Never Active Member of Clubs or Organizations: No Attends Club or Organization Meetings: Never Marital Status: Housing Stability: Low Risk (01/27/2020) [facility] Housing Stability Vital Sign Unable to Pay [...] patient is ner (more content not included)... [facility] ED Prov Noteon 01-29-2024 ED Prov Note ED PROVIDER NOTE [facility] NAME: Lana Rivera AGE: 38 y.o. : 1985 VISIT DATE: 01/29/2024 CSN: [id number] PCP: Aleena London MD Chief Complaint Patient [...] Resource Strain: High Risk (02/19/2020) Received from [facility] Overall Financial Resource Strain (CARDIA) Difficulty of Paying Living Expenses: Hard Food Insecurity: No Food Insecurity (02/19/2020) Received from [facility] Hunger Vital Sign Worried About Running Out of Food in the Last Year: Never true Ran Out of Food in the Last Year: Never true Transportation Needs: No Transportation Needs (02/19/2020) Received from [facility] PRAPARE - Transportation Lack of Transportation (Medical): No Lack of Transportation (Non-Medical): No Physical Activity: Insufficiently Active (01/27/2020) Received from [facility] Exercise Vital Sign Days of Exercise per Week: 2 days Minutes of Exercise per Session: 20 min Stress: No Stress Concern Present (01/27/2020) Received from [facility] [place] of [facility]ational Health - Occupational Stress Questionnaire Feeling of Stress : Only a little Social Connections: Moderately Isolated (01/27/2020) Received from [facility] Social Connection and Isolation Panel [NHANES] Frequency of Communication with Friends and Family: More than three times a week Frequency of Social Gatherings with Friends and Family: Twice a week Attends Jewish Services: Never Active Member of Clubs or Organizations: No Attends Club or Organization Meetings: Never Marital Status: Housing Stability: Low Risk (01/27/2020) Received from [facility] Housing Stability Vital [...] Comments) In (more content not included)... Normal [facility] COVID-19, MOLECULARon 2023 SARS-CoV-2 (COVID-19) Ab IA Ql Not detected Normal Not Detected [facility] Comment on above: Result Comment: Test ing was performed using the [employer] NOW COVID-19 assay on the ID [...] supply per fill: (more content not included)... [facility] XR CHEST PA/APon 01-16-2024 XR CHEST PA/AP [...] No evidence of pneumonia. No acute findings. [facility]/phil Workstation ID: [id number] Dictated by: SHILPI PATEL on MonJan 16, 2024 1:10:19 PM EDT Transcribed by: OLY TINAJERO on MonJan 16, 2024 1:25:31 PM EDT Finalized by: SHILPI PATEL on MonJan 16, 2024 4:29:21 PM EDT [facility] Comment on above: Order Comment: Injur y/Trauma or Illness?:Illness/Other How long have you had these symptoms (acute/chronic)?:Acute Reason for exam?:lower GI bleed with abd pain Type of Exam?:Initial Additional signs and symptoms?:na XR SHOULDER LEFT 2+ [...] a chronic AC joint separation. No change. [facility]/r Workstation ID: [id number] Dictated by: SHILPI PATEL on MonJan 16, 2024 1:09:35 PM EDT Transcribed by: MARIO MEZA on MonJan 16, 2024 1:21:47 PM EDT Finalized by: SHILPI PATEL on MonJan 16, 2024 4:29:26 PM EDT [facility] Comment on above: Order Comment: Injur y/Trauma or Illness?:Illness/Other How long have you had these symptoms (acute/chronic)?:Acute Reason for exam?:lower GI bleed with abd pain Type of Exam?:Initial Additional signs and symptoms?:na ED Prov Noteon 01-07-2024 ED Prov Note ED PROVIDER NOTE [facility] NAME: Lana Rivera AGE: 38 y.o. 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 Overall Financial Resource Strain (CARDIA) Difficulty of Paying Living Expenses: Hard Food Insecurity: No Food Insecurity (02/19/2020) Received from [facility] Hunger Vital Sign Worried About Running Out of Food in the Last Year: Never true Ran Out of Food in the Last Year: Never true Transportation Needs: No Transportation Needs (02/19/2020) Received from [facility] PRAPARE - Transportation Lack of Transportation (Medical): No Lack of Transportation (Non-Medical): No Physical Activity: Insufficiently Active (01/27/2020) Received from [facility] Exercise Vital Sign Days of Exercise per Week: 2 days Minutes of Exercise per Session: 20 min Stress: No Stress Concern Present (01/27/2020) Received from [facility] of Occupational Health - Occupational Stress Questionnaire Feeling of Stress : Only a little Social Connections: Moderately Isolated (01/27/2020) Received from [facility] Social Connection and Isolation Panel [NHANES] Frequency of Communication with Friends and Family: More than three times a week Frequency of Social Gatherings with Friends and Family: Twice a week Attends Jewish Services: Never Active Member of Clubs or Organizations: No Attends Club or Organization Meetings: Never Marital Status: Housing Stability: Low Risk (01/27/2020) Received from [facility] Housing Stability Vital [...] F (37.4 deg (more content not included)... [facility] XR SHOULDER LEFT 2+ VIEWS (S TANDARD)on [...] ID: [id number] Dictated by: BELKYS KITCHEN on [place] Jan 07, 2024 8:59:23 AM EDT Transcribed by: BELKYS KITCHEN on [place] Jan 07, 2024 8:59:23 AM EDT Finalized by: BELKYS KITCHEN on [place] Jan 07, 2024 8:59:23 AM EDT [facility] Comment on above: Order Comment: Injur y/Trauma or Illness?:Illness/Other How long have you had these symptoms (acute/chronic)?:Acute Reason for exam?:sudden onset of lower abd and right sided back pain in the night hx of ovarian cyst and endometreosis Type of Exam?:Initial Additional signs and symptoms?:na ED Prov Noteon 12-01-2023 ED Prov Note ED PROVIDER NOTE [facility] NAME: Lana Rivera AGE: 38 y.o. : 1985 VISIT DATE: 12/01/2023 CSN: [id number] PCP: Aleena London MD Chief Complaint Patient [...] Resource Strain: High Risk (02/19/2020) Received from [facility] Overall Financial Resource Strain (CARDIA) Difficulty of Paying Living Expenses: Hard Food Insecurity: No Food Insecurity (02/19/2020) Received from [facility] Hunger Vital Sign Worried About Running Out of Food in the Last Year: Never true Ran Out of Food in the Last Year: Never true Transportation Needs: No Transportation Needs (02/19/2020) Received from [facility] PRAPARE - Transportation Lack of Transportation (Medical): No Lack of Transportation (Non-Medical): No Physical Activity: Insufficiently Active (01/27/2020) Received from [facility] Exercise Vital Sign Days of Exercise per Week: 2 days Minutes of Exercise per Session: 20 min Stress: No Stress Concern Present (01/27/2020) Received from [facility] of Occupational Health - Occupational Stress Questionnaire Feeling of Stress : Only a little Social Connections: Moderately Isolated (01/27/2020) Received from [facility] Social Connection and Isolation Panel [NHANES] Frequency of Communication with Friends and Family: More than three times a week Frequency of Social Gatherings with Friends and Family: Twice a week Attends Jewish Services: Never Active Member of Clubs or Organizations: No Attends Club or Organization Meetings: Never Marital Status: Housing Stability: Low Risk (01/27/2020) Received from [facility] Housing Stability Vital Sign Unable to Pay for Housing in the Last Year: No Number of Places Lived in the Last Year: 1 In the last 12 months, was there a time when you did not have a steady place to sleep or slept in a senior care (including now)?: No Previous Medications Medication Sig [...] a child Promet (more content not included)... [facility] XR ANKLE RIGHT 3+ VIEWS (STA NDARD)on [...] osseous abnormality. /[facility] Workstation ID: [id number] Dictated by: JOHANNA MARCH on MonDec 01, 2023 1:52:10 PM EDT Transcribed by: CATINA NIETO on MonDec 01, 2023 2:05:31 PM EDT Finalized by: JOHANNA MARCH on MonDec 01, 2023 4:58:59 PM EDT [facility] Comment on above: Order Comment: Injur y/Trauma or Illness?:Illness/Other How long have you had these symptoms (acute/chronic)?:Acute Reason for exam?:lower GI bleed with abd pain Type of Exam?:Initial Additional signs and symptoms?:na ED Prov Noteon 11-25-2023 ED Prov Note HPI: 11/25/2023, Time: @NOWNR@ Lana Desai Miguel is a 38 y.o. female presenting to [...] are negative. PAST HISTORY Past Medical History: @[facility]@ Past Surgical History: has a past surgical [...] radiopaque foreign body in the right foot. [employer] Workstation ID: [id number] -- NURSING NOTES AND [...] disc disease, will provide short course of [place] for pain and patient to continue ketoprofen [...] total) by mouth (more content not included)... [facility] XR FOOT RIGHT 3+ VIEWS (MOI WELDON)on [...] radiopaque foreign body in the right foot. [facility] Workstation ID: [id number] Dictated by: GREYSON SCHROEDER on [facility] Nov 25, 2023 9:36:41 AM EDT Transcribed by: KENNY ARRIAGA on [facility] Nov 25, 2023 9:39:36 AM EDT Finalized by: GREYSON SCHROEDER on [facility] Nov 25, 2023 10:29:24 AM EDT [facility] Comment on above: Order Comment: Injur y/Trauma or Illness?:Illness/Other How long have you had these symptoms (acute/chronic)?:Acute Reason for exam?:sudden onset of lower abd and right sided back pain in the night hx of ovarian cyst and endometreosis Type of Exam?:Initial Additional signs and symptoms?:na Absolute lymphocyte countOrd ered By: Sorni Jacobs on 09-29-2023 Lymphocytes Auto (Unsp spec) [#/Vol] 1.56 10*3/uL 0.83-4.51 [facility] Automated lymphocyte count a s percentage of total leukocytesOrdered By: Sorinautumn Jacobs on 09-29-2023 Lymphocytes/100 WBC Auto (Unsp spec) 26.8 % 19-41 [facility] Basophil percentageOrdered B y: Sorin Jacobs on 09-29-2023 Basophil percentage 14.4 g/dL 12.0-15.0 [facility] Basophils (Bld) [#/Vol] 5.8 10*3/uL 4.4-11.0 [facility] Basophils (Bld) [#/Vol] 3.5 10*3/uL 2.0-7.7 [facility] Basophils/100 WBC (Bld) 59.6 % 47-70 [facility] Basophils/100 WBC (Bld) 9.4 % 0-10 [facility] Basophils/100 WBC (Bld) 3.4 % 0-5 [facility] Basophils/100 WBC (Bld) 0.5 % 0-1 [facility] Determination of erythrocyte mean corpuscular volume (MCV)Ordered By: Sorin Jacobs on 09-29-2023 MCV (RBC) [Entitic vol] 86.0 fL 81-99 [facility] Erythrocyte distribution wid th ratioOrdered By: Sorin Jacobs on 09-29-2023 Erythrocyte distribution width (RBC) [Ratio] 13.2 % 11.6-14.6 [facility] Erythrocyte distribution wid th standard deviationOrdered By: Sorinautumn Jacobs on 09-29-2023 Erythrocyte distribution width (RBC) [Entitic vol] 41.2 fL 35.1-43.9 [facility] Hematocrit Auto (Bld) [Volum e fraction]Ordered By: Sorin Jacobs on 09-29-2023 Hematocrit (Bld) [Volume fraction] 44.4 % 37-47 [facility] Immature granulocytes/100 WB C Auto (Bld)Ordered By: Sorin Jacobs on 09-29-2023 Immature granulocytes/100 WBC (Bld) 0.300 % 0.0-0.9 [facility] No Panel InformationOrdered By: Sorin Jacobs on 09-29-2023 27.9 pg 27.0-32.0 [facility] 32.4 g/dL 32-36 [facility] 173 K/mm3 150-450 [facility] 10.6 fl 6.2-12.0 [facility] 0 % 0-5 [facility] RBC Auto (Bld) [#/Vol]Ordere d By: Sorin Jacobs on 09-29-2023 RBC (Bld) [#/Vol] 5.16 10*6/uL 4.2-5.4 [facility] Throat specimen bacteria gregorio ntification by cultureOrdered By: Oscar Fuller on 09-21-2023 Bacteria identified Cx Nom (Throat) streptococcus isolated. [facility] Rapid group A Streptococcus screen at point of careon 09-14-2023 S. pyogenes Ag IA.rapid Ql (Throat) Negative [facility] Absolute lymphocyte countOrd ered By: Irving Lobato on 09-05-2023 Lymphocytes Auto (Unsp spec) [#/Vol] 1.28 10*3/uL 0.83-4.51 [facility] Automated lymphocyte count a s percentage of total leukocytesOrdered By: Irving Lobato on 09-05-2023 Lymphocytes/100 WBC Auto (Unsp spec) 27.5 % 19-41 [facility] Basophil percentageOrdered B y: Irving Lobato on 09-05-2023 Basophil percentage 13.7 g/dL 12.0-15.0 [facility] Basophil percentage 109 mg/dL 74-106 [facility] Basophil percentage 7.1 g/dL 6.4-8.2 [facility] Basophil percentage 0.30 mg/dL 0.20-1.00 [facility] Basophil percentage 139 mmol/L 136-145 [facility] Basophil percentage 3.7 mmol/L 3.5-5.1 [facility] Basophil percentage 108 mmol/L 98-107 [facility] Basophils (Bld) [#/Vol] 4.7 10*3/uL 4.4-11.0 [facility] Basophils (Bld) [#/Vol] 2.7 10*3/uL 2.0-7.7 [facility] Basophils/100 WBC (Bld) 57.3 % 47-70 [facility] Basophils/100 WBC (Bld) 9.4 % 0-10 [facility] Basophils/100 WBC (Bld) 4.5 % 0-5 [facility] Basophils/100 WBC (Bld) 0.9 % 0-1 [facility] Chlamydia trachomatis rRNA d etection by probe and target amplification methodOrdered By: Diana Gunn on 09-05-2023 C. trachomatis rRNA JONE+probe Ql (Unsp spec) Negative Negative [facility] Determination of erythrocyte mean corpuscular volume (MCV)Ordered By: Irving Lobato on 09-05-2023 MCV (RBC) [Entitic vol] 83.8 fL 81-99 [facility] Erythrocyte distribution wid th ratioOrdered By: Irving Lobato on 09-05-2023 Erythrocyte distribution width (RBC) [Ratio] 12.6 % 11.6-14.6 [facility] Erythrocyte distribution wid th standard deviationOrdered By: Irving Lobato on 09-05-2023 Erythrocyte distribution width (RBC) [Entitic vol] 38.2 fL 35.1-43.9 [facility] Gram stain for investigation of transfusion reactionOrdered By: Diana Gunn on 09-05-2023 Microscopic observation Gram stain Nom (Unsp spec) [facility] HIV 1 and HIV-2 antibody ass ay with HIV-1 p24 antigen detectionOrdered By: Diana Gunn on 09-05-2023 HIV 1+2 Ab+HIV1 p24 Ag IA Ql Non-Reactive Nonreactive [facility] Hematocrit Auto (Bld) [Volum e fraction]Ordered By: Irving Lobato on 09-05-2023 Hematocrit (Bld) [Volume fraction] 41.0 % 37-47 [facility] Immature granulocytes/100 WB C Auto (Bld)Ordered By: Irving Lobato on 09-05-2023 Immature granulocytes/100 WBC (Bld) 0.400 % 0.0-0.9 [facility] No Panel InformationOrdered By: Diana Gunn on 09-05-2023 Negative Negative [facility] Yeast, not Chela albicans [facility] Non-Reactive Nonreactive [facility] No Panel InformationOrdered By: Irving Lobato on 09-05-2023 28.0 pg 27.0-32.0 [facility] 33.4 g/dL 32-36 [facility] 193 K/mm3 150-450 [facility] 10.9 fl 6.2-12.0 [facility] 0 % 0-5 [facility] 13.0 SECONDS 11.7-14.9 [facility] 1.0 [facility] 84 mL/min >60 [facility] 102 mL/min >60 [facility] 11.1 RATIO 10-20 [facility] 3.5 g/dL 2.2-4.2 [facility] 1.0 RATIO 0.9-2.4 [facility] 66 U/L 45-117 [facility] 24 U/L 13-56 [facility] 26.0 mmol/L 21.0-32.0 [facility] < 2.90 mg/L 0.0-3.0 [facility] 288 pg/mL 211-911 [facility] No Panel Informationon 09-04 Negative [facility] RBC Auto (Bld) [#/Vol]Ordere d By: Irving Lobato on 09-05-2023 RBC (Bld) [#/Vol] 4.89 10*6/uL 4.2-5.4 [facility] Serum Treponema species anti body detectionOrdered By: Diana Gunn on 09-05-2023 Treponema sp Ab Ql (S) Non-Reactive [facility] Serum or plasma calcium mg urement (mass/volume)Ordered By: Irving Lobato on 09-05-2023 Calcium [Mass/Vol] 8.5 mg/dL 8.5-10.1 [facility] Serum or plasma creatinine m easurement (mass/volume)Ordered By: Irving Lobato on 09-05-2023 Creatinine [Mass/Vol] 0.81 mg/dL 0.55-1.02 [facility] Serum or plasma thyroid stim ulating hormone (TSH) measurement (units/volume)Ordered By: Irving Lobato on 09-05-2023 TSH Qn 0.81 uIU/mL 0.358-3.74 [facility] Serum or plasma urea nitroge n measurement (mass/volume)Ordered By: Irving Lobato on 09-05-2023 Urea nitrogen [Mass/Vol] 9 mg/dL 7-18 [facility] Thin prep Papanicolaou smear with manual screeningOrdered By: Irving Lobato on 09-05-2023 Thin prep Papanicolaou smear with manual screening 3.6 g/dL 3.2-5.0 [facility] Thin prep Papanicolaou smear with manual screening 14 U/L 15-37 [facility] Thin prep Papanicolaou smear with manual screening 5 5-15 [facility] Thin prep Papanicolaou smear with manual screening 1.24 ng/dL 0.76-1.46 [facility] Whole blood hemoglobin A1c/t otal hemoglobin ratio (mass fraction)Ordered By: Irving Lobato on 09-05-2023 HbA1c (Bld) [Mass fraction] 5.6 % 3.8-5.6 [facility] Bacteria identified Cx Nom ( Throat)Ordered By: Oscar Fuller on 08-31-2023 Throat specimen bacteria identification by culture Streptococcus group A [facility] CNOVSPon 08-16-2023 CNOVSP Visit (SP) Office ([facility]) LANA RIVERA ([id number]) 1985 F Date Time Provider Department 08/16/23 2:30 PM ARGELIA VASQUEZ During your visit today, we recorded the following information about you: Jayla Medina APRN.[employer] 08/29/2023 11:24 AM Signed PATIENT DID NOT [...] years as her is s/p vasectomy. Her Vascular Surgeon is Dr. Garcia and Dr. Moore IMAGING: [...] before breakfa (more content not included)... Normal [facility] Absolute lymphocyte countOrd ered By: Ashutosh Barajas on 07-25-2023 Lymphocytes Auto (Unsp spec) [#/Vol] 2.07 10*3/uL 0.83-4.51 [facility] Automated lymphocyte count a s percentage of total leukocytesOrdered By: Ashutosh Barajas on 07-25-2023 Lymphocytes/100 WBC Auto (Unsp spec) 31.5 % 19-41 [facility] Basophil percentageOrdered B y: Ashutosh Barajas on 07-25-2023 Basophil percentage 13.6 g/dL 12.0-15.0 [facility] Basophil percentage 103 mg/dL 74-106 [facility] Basophil percentage 139 mmol/L 136-145 [facility] Basophil percentage 3.6 mmol/L 3.5-5.1 [facility] Basophil percentage 110 mmol/L 98-107 [facility] Basophils (Bld) [#/Vol] 6.6 10*3/uL 4.4-11.0 [facility] Basophils (Bld) [#/Vol] 3.7 10*3/uL 2.0-7.7 [facility] Basophils/100 WBC (Bld) 56.2 % 47-70 [facility] Basophils/100 WBC (Bld) 7.5 % 0-10 [facility] Basophils/100 WBC (Bld) 4.1 % 0-5 [facility] Basophils/100 WBC (Bld) 0.5 % 0-1 [facility] Basophil percentageOrdered B y: ED PROVIDER on 07-25-2023 Basophil percentage 0 SEEN /hpf 0-5 [facility] Bilirubin Test strip Ql (U)O rdered By: ED PROVIDER on 07-25-2023 Bilirubin Ql (U) Negative Negative [facility] Determination of erythrocyte mean corpuscular volume (MCV)Ordered By: Ashutosh Barajas on 07-25-2023 MCV (RBC) [Entitic vol] 84.2 fL 81-99 [facility] Erythrocyte distribution wid th ratioOrdered By: Ashutosh Barajas on 07-25-2023 Erythrocyte distribution width (RBC) [Ratio] 12.7 % 11.6-14.6 [facility] Erythrocyte distribution wid th standard deviationOrdered By: Ashutosh Barajas on 07-25-2023 Erythrocyte distribution width (RBC) [Entitic vol] 38.5 fL 35.1-43.9 [facility] Hematocrit Auto (Bld) [Volum e fraction]Ordered By: Ashutosh Barajas on 07-25-2023 Hematocrit (Bld) [Volume fraction] 40.4 % 37-47 [facility] Immature granulocytes/100 WB C Auto (Bld)Ordered By: Ashutosh Barajas on 07-25-2023 Immature granulocytes/100 WBC (Bld) 0.200 % 0.0-0.9 [facility] Ketones Test strip Ql (U)Ord ered By: ED PROVIDER on 07-25-2023 Ketones Ql (U) Negative Negative [facility] Mucus LM Ql (Urine sed)Order ed By: ED PROVIDER on 07-25-2023 Mucus Ql (Urine sed) 0 SEEN /hpf [facility] Nitrite Test strip Ql (U)Ord ered By: ED PROVIDER on 07-25-2023 Nitrite Ql (U) Negative Negative [facility] No Panel InformationOrdered By: Ashutosh Barajsa on 07-25-2023 28.3 pg 27.0-32.0 [facility] 33.7 g/dL 32-36 [facility] 179 K/mm3 150-450 [facility] 10.9 fl 6.2-12.0 [facility] 0 % 0-5 [facility] 101 mL/min >60 [facility] 122 mL/min >60 [facility] 137.22 ml/min [facility] 15.8 RATIO 10-20 [facility] 26.0 mmol/L 21.0-32.0 [facility] No Panel InformationOrdered By: ED PROVIDER on 07-25-2023 0 SEEN /hpf 0-5 [facility] Protein Test strip Ql (U)Ord ered By: ED PROVIDER on 07-25-2023 Protein Ql (U) Negative Negative [facility] RBC Auto (Bld) [#/Vol]Ordere d By: Ashutosh Barajas on 07-25-2023 RBC (Bld) [#/Vol] 4.80 10*6/uL 4.2-5.4 [facility] Serum or plasma calcium mg urement (mass/volume)Ordered By: Ashutosh Barajas on 07-25-2023 Calcium [Mass/Vol] 8.8 mg/dL 8.5-10.1 [facility] Serum or plasma creatinine m easurement (mass/volume)Ordered By: Ashutosh Barajas on 07-25-2023 Creatinine [Mass/Vol] 0.70 mg/dL 0.55-1.02 [facility] Serum or plasma urea nitroge n measurement (mass/volume)Ordered By: Ashutosh Barajas on 07-25-2023 Urea nitrogen [Mass/Vol] 11 mg/dL 7-18 [facility] Squamous epithelial cells de tection in urine sediment by light microscopyOrdered By: ED PROVIDER on 07-25-2023 Epithelial cells.squamous LM Ql (Urine sed) 0-5 SEEN /hpf 5-10 [facility] Thin prep Papanicolaou smear with manual screeningOrdered By: Ashutosh Barajas on 07-25-2023 Thin prep Papanicolaou smear with manual screening 3 5-15 [facility] Urine blood detectionOrdered By: ED PROVIDER on 07-25-2023 RBC Ql (U) Negative Negative [facility] Urine clarityOrdered By: ED PROVIDER on 07-25-2023 Clarity (U) Clear Clear [facility] Urine color determinationOrd ered By: ED PROVIDER on 07-25-2023 Color (U) Yellow Yellow [facility] Urine glucose detectionOrder ed By: ED PROVIDER on 07-25-2023 Glucose Ql (U) Normal mg/dl Normal [facility] Urine leukocyte esterase det ection by dipstickOrdered By: ED PROVIDER on 07-25-2023 Leukocyte esterase Test strip Ql (U) Negative Negative [facility] Urine pHOrdered By: ED PROVI TITA on 07-25-2023 pH (U) 6.0 [pH] 5.0 - 8.0 [facility] Urine sediment bacteria coun t by microscopy (number/high power field)Ordered By: ED PROVIDER on 07-25-2023 Bacteria LM.HPF (Urine sed) [#/Area] 0 /[HPF] None Seen [facility] Urine specific gravity measu rementOrdered By: ED PROVIDER on 07-25-2023 Specific gravity (U) [Rel density] 1.015 1.002-1.030 [facility] Urine urobilinogen measureme ntOrdered By: ED PROVIDER on 07-25-2023 Urobilinogen Ql (U) Normal mg/dl Normal [facility] No Panel InformationOrdered By: Ashutosh Barajas on 07-18-2023 < 0.27 FEU/ug/m 0.27-0.49 [facility] 178 U/L 26-192 [facility] Absolute lymphocyte countOrd ered By: Ralph Tracy on 05-03-2023 Lymphocytes Auto (Unsp spec) [#/Vol] 1.14 10*3/uL 0.83-4.51 [facility] Basophil percentageOrdered B y: Ralph Tracy on 05-03-2023 Basophil percentage 159 mg/dL 74-106 [facility] Basophil percentage 7.0 g/dL 6.4-8.2 [facility] Basophil percentage 0.40 mg/dL 0.20-1.00 [facility] Basophil percentage 137 mmol/L 136-145 [facility] Basophil percentage 3.6 mmol/L 3.5-5.1 [facility] Basophil percentage 107 mmol/L 98-107 [facility] Basophil percentage 13.0 umol/L 11-32 [facility] Basophil percentage 168 U/L 84-246 [facility] Basophil percentage Not Reportable [facility] Basophils (Bld) [#/Vol] 4.8 10*3/uL 4.4-11.0 [facility] Basophils (Bld) [#/Vol] 3.1 10*3/uL 2.0-7.7 [facility] Basophils/100 WBC (Bld) 65.8 % 47-70 [facility] Basophils/100 WBC (Bld) 3.8 % 0-5 [facility] Basophils/100 WBC (Bld) 0.6 % 0-1 [facility] Blood erythrocytes count (nu mber/volume)Ordered By: Ralph Tracy on 05-03-2023 RBC (Bld) [#/Vol] 5.11 10*6/uL 4.2-5.4 [facility] Blood hemoglobin measurement (mass/volume)Ordered By: Ralph Tracy on 05-03-2023 Hemoglobin (Bld) [Mass/Vol] 14.1 g/dL 12.0-15.0 [facility] Blood lymphocytes/100 leukoc ytesOrdered By: Ralph Tracy on 05-03-2023 Lymphocytes/100 WBC (Bld) 23.9 % 19-41 [facility] Blood monocytes/100 leukocyt esOrdered By: Ralph Tracy on 05-03-2023 Monocytes/100 WBC (Bld) 5.5 % 0-10 [facility] Blood platelet mean volumeOr dered By: Ralph Tracy on 05-03-2023 Platelet mean volume (Bld) [Entitic vol] 11.4 fL 6.2-12.0 [facility] Determination of erythrocyte mean corpuscular volume (MCV)Ordered By: Ralph Tracy on 05-03-2023 MCV (RBC) [Entitic vol] 86.3 fL 81-99 [facility] Erythrocyte sedimentation ra teOrdered By: Ralph Tracy on 05-03-2023 ESR (Bld) [Velocity] 2 mm/h 0-30 [facility] Hematocrit Auto (Bld) [Volum e fraction]Ordered By: Ralph Tracy on 05-03-2023 Hematocrit (Bld) [Volume fraction] 44.1 % 37-47 [facility] INR in Blood by Coagulation assayOrdered By: Ralph Tracy on 05-03-2023 INR Coag (Bld) [Relative time] 1.0 {INR} [facility] MCHC Auto (RBC) [Mass/Vol]Or dered By: Ralph Tracy on 05-03-2023 MCHC (RBC) [Mass/Vol] 32.0 g/dL 32-36 [facility] No Panel InformationOrdered By: Ralph Tracy on 05-03-2023 27.6 pg 27.0-32.0 [facility] 13.1 % 11.6-14.6 [facility] 40.8 fl 35.1-43.9 [facility] 0.400 % 0.0-0.9 [facility] 0 % 0-5 [facility] 13.2 SECONDS 11.7-14.9 [facility] 75 mL/min >60 [facility] 91 mL/min >60 [facility] 10.0 RATIO 10-20 [facility] 3.4 g/dL 2.2-4.2 [facility] 65 U/L 45-117 [facility] 20 U/L 13-56 [facility] 24.0 mmol/L 21.0-32.0 [facility] 22.6 ng/mL [facility] Negative Negative [facility] Not Reportable [facility] <2 U/mL 0-5 [facility] Platelets bldOrdered By: Mir Tracy on 05-03-2023 Platelets (Bld) [#/Vol] 180 10*3/uL 150-450 [facility] Serum DNA double strand anti body assay (units/volume)Ordered By: Ralph Tracy on 05-03-2023 DNA double strand Ab Qn (S) Not Reportable [facility] Serum Alise-1 antibody assay (u nits/volume)Ordered By: Ralph Tracy on 05-03-2023 Alise-1 extractable nuclear Ab Qn (S) Not Reportable [facility] Serum Scl-70 extractable nuc lear antibody assay (units/volume)Ordered By: Ralph Tracy on 05-03-2023 SCL-70 extractable nuclear Ab Qn (S) Not Reportable [facility] Serum Freedman extractable nucl ear antibody detectionOrdered By: Ralph Tracy on 05-03-2023 Freedman extractable nuclear Ab Ql (S) Not Reportable [facility] Serum or plasma C reactive p rotein measurement (mass/volume)Ordered By: Ralph Tracy on 05-03-2023 CRP [Mass/Vol] mg/L 0.0-3.0 [facility] Serum or plasma albumin mg urement (mass/volume)Ordered By: Ralph Tracy on 05-03-2023 Albumin [Mass/Vol] 3.6 g/dL 3.2-5.0 [facility] Serum or plasma albumin/glob ulin mass ratioOrdered By: Ralph Tracy on 05-03-2023 Albumin/Globulin [Mass ratio] 1.1 {ratio} 0.9-2.4 [facility] Serum or plasma [id number] protein tumor marker measurement (units/volume)Ordered By: Ralph Tracy on 05-03-2023 AFP.tumor marker Qn 2.2 ng/mL 0.0-6.4 [facility] Serum or plasma calcium mg urement (mass/volume)Ordered By: Ralph Tracy on 05-03-2023 Calcium [Mass/Vol] 8.9 mg/dL 8.5-10.1 [facility] Serum or plasma creatinine m easurement (mass/volume)Ordered By: Ralph Tracy on 05-03-2023 Creatinine [Mass/Vol] 0.90 mg/dL 0.55-1.02 [facility] Serum or plasma urea nitroge n measurement (mass/volume)Ordered By: Ralph Tracy on 05-03-2023 Urea nitrogen [Mass/Vol] 9 mg/dL 7-18 [facility] Thin prep Papanicolaou smear with manual screeningOrdered By: Ralph Tracy on 05-03-2023 Thin prep Papanicolaou smear with manual screening 8 U/L 15-37 [facility] Thin prep Papanicolaou smear with manual screening 6 5-15 [facility] No Panel Informationon 04-19 5.7 % 4.2-6.3 [facility] No Panel InformationOrdered By: Cassidy Moore on 04-06-2023 1.15 ng/dL 0.76-1.46 [facility] 4.7 mIU/mL [facility] 95.1 ug/dL 57.3-279.2 [facility] Serum or plasma 17-hydroxypr ogesterone measurement (mass/volume)Ordered By: Cassidy Moore on 04-06-2023 17-Hydroxyprogesterone [Mass/Vol] 17 ng/dL . [facility] Serum or plasma estradiol (E 2) measurement (mass/volume)Ordered By: Cassidy Moore on 04-06-2023 E2 [Mass/Vol] 29.2 pg/mL [facility] Serum or plasma testosterone free measurement (mass/volume)Ordered By: Cassidy Moore on 04-06-2023 Testosterone Free [Mass/Vol] 0.4 pg/mL 0.0-4.2 [facility] Basophil percentageOrdered B y: Ralph Tracy on 03-28-2023 Basophil percentage 109 mg/dL 74-106 [facility] Basophil percentage 6.9 g/dL 6.4-8.2 [facility] Basophil percentage 0.30 mg/dL 0.20-1.00 [facility] Basophil percentage 137 mmol/L 136-145 [facility] Basophil percentage 3.9 mmol/L 3.5-5.1 [facility] Basophil percentage 105 mmol/L 98-107 [facility] Direct bilirubinOrdered By: Ralph Tracy on 03-28-2023 Bilirubin.direct [Mass/Vol] 0.11 mg/dL 0.00-0.30 [facility] No Panel InformationOrdered By: Ralph Tracy on 03-28-2023 81 mL/min >60 [facility] 98 mL/min >60 [facility] 10.7 RATIO 10-20 [facility] 3.3 g/dL 2.2-4.2 [facility] 65 U/L 45-117 [facility] 23 U/L 13-56 [facility] 31.0 mmol/L 21.0-32.0 [facility] Serum or plasma albumin mg urement (mass/volume)Ordered By: Ralph Tracy on 03-28-2023 Albumin [Mass/Vol] 3.6 g/dL 3.2-5.0 [facility] Serum or plasma albumin/glob ulin mass ratioOrdered By: Ralph Tracy on 03-28-2023 Albumin/Globulin [Mass ratio] 1.1 {ratio} 0.9-2.4 [facility] Serum or plasma calcium mg urement (mass/volume)Ordered By: Ralph Tracy on 03-28-2023 Calcium [Mass/Vol] 9.0 mg/dL 8.5-10.1 [facility] Serum or plasma creatinine m easurement (mass/volume)Ordered By: Ralph Tracy on 03-28-2023 Creatinine [Mass/Vol] 0.84 mg/dL 0.55-1.02 [facility] Serum or plasma urea nitroge n measurement (mass/volume)Ordered By: Ralph Tracy on 03-28-2023 Urea nitrogen [Mass/Vol] 9 mg/dL 7-18 [facility] Thin prep Papanicolaou smear with manual screeningOrdered By: Ralph Tracy on 03-28-2023 Thin prep Papanicolaou smear with manual screening 12 U/L 15-37 [facility] Thin prep Papanicolaou smear with manual screening 1 5-15 [facility] No Panel InformationOrdered By: Aleena London on 03-03-2023 1.24 uIU/mL 0.358-3.74 [facility] Absolute lymphocyte countOrd ered By: Loly Sierra on 02-08-2023 Lymphocytes Auto (Unsp spec) [#/Vol] 1.87 10*3/uL 0.83-4.51 [facility] Basophil percentageOrdered B y: Loly Sierra on 02-08-2023 Basophil percentage 0 SEEN /hpf 0-5 [facility] Basophil percentage 110 mg/dL 74-106 [facility] Basophil percentage 6.7 g/dL 6.4-8.2 [facility] Basophil percentage 0.10 mg/dL 0.20-1.00 [facility] Basophil percentage 138 mmol/L 136-145 [facility] Basophil percentage 3.8 mmol/L 3.5-5.1 [facility] Basophil percentage 107 mmol/L 98-107 [facility] Basophils (Bld) [#/Vol] 5.6 10*3/uL 4.4-11.0 [facility] Basophils (Bld) [#/Vol] 2.9 10*3/uL 2.0-7.7 [facility] Basophils/100 WBC (Bld) 51.2 % 47-70 [facility] Basophils/100 WBC (Bld) 4.5 % 0-5 [facility] Basophils/100 WBC (Bld) 0.9 % 0-1 [facility] Bilirubin Test strip Ql (U)O rdered By: Loly Sierra on 02-08-2023 Bilirubin Ql (U) Negative Negative [facility] Blood erythrocytes count (nu mber/volume)Ordered By: Loly Sierra on 02-08-2023 RBC (Bld) [#/Vol] 4.74 10*6/uL 4.2-5.4 [facility] Blood hemoglobin measurement (mass/volume)Ordered By: Loly Sierra on 02-08-2023 Hemoglobin (Bld) [Mass/Vol] 13.2 g/dL 12.0-15.0 [facility] Blood lymphocytes/100 leukoc ytesOrdered By: Loly Sierra on 02-08-2023 Lymphocytes/100 WBC (Bld) 33.5 % 19-41 [facility] Blood monocytes/100 leukocyt esOrdered By: Loly Sierra on 02-08-2023 Monocytes/100 WBC (Bld) 9.5 % 0-10 [facility] Blood platelet mean volumeOr dered By: Loly Sierra on 02-08-2023 Platelet mean volume (Bld) [Entitic vol] 10.8 fL 6.2-12.0 [facility] Determination of erythrocyte mean corpuscular volume (MCV)Ordered By: Loly Sierra on 02-08-2023 MCV (RBC) [Entitic vol] 86.5 fL 81-99 [facility] Hematocrit Auto (Bld) [Volum e fraction]Ordered By: Loly Sierra on 02-08-2023 Hematocrit (Bld) [Volume fraction] 41.0 % 37-47 [facility] Ketones Test strip Ql (U)Ord ered By: Loly Sierra on 02-08-2023 Ketones Ql (U) Negative Negative [facility] MCHC Auto (RBC) [Mass/Vol]Or dered By: Loly Sierra on 02-08-2023 MCHC (RBC) [Mass/Vol] 32.2 g/dL 32-36 [facility] Mucus LM Ql (Urine sed)Order ed By: Loly Sierra on 02-08-2023 Mucus Ql (Urine sed) 0 SEEN /hpf [facility] Nitrite Test strip Ql (U)Ord ered By: Loly Sierra on 02-08-2023 Nitrite Ql (U) Negative Negative [facility] No Panel InformationOrdered By: Loly Sierra on 02-08-2023 27.8 pg 27.0-32.0 [facility] 13.0 % 11.6-14.6 [facility] 40.7 fl 35.1-43.9 [facility] 0.400 % 0.0-0.9 [facility] 0 % 0-5 [facility] 86 mL/min >60 [facility] 104 mL/min >60 [facility] 90.75 ml/min [facility] 12.4 RATIO 10-20 [facility] 3.2 g/dL 2.2-4.2 [facility] 61 U/L 45-117 [facility] 24 U/L 13-56 [facility] 27.0 mmol/L 21.0-32.0 [facility] Platelets bldOrdered By: Reyna Sierra on 02-08-2023 Platelets (Bld) [#/Vol] 177 10*3/uL 150-450 [facility] Protein Test strip Ql (U)Ord ered By: Loly Sierra on 02-08-2023 Protein Ql (U) Negative Negative [facility] Serum or plasma albumin mg urement (mass/volume)Ordered By: Loly Sierra on 02-08-2023 Albumin [Mass/Vol] 3.5 g/dL 3.2-5.0 [facility] Serum or plasma albumin/glob ulin mass ratioOrdered By: Loly Sierra on 02-08-2023 Albumin/Globulin [Mass ratio] 1.1 {ratio} 0.9-2.4 [facility] Serum or plasma calcium mg urement (mass/volume)Ordered By: Loly Sierra on 02-08-2023 Calcium [Mass/Vol] 8.8 mg/dL 8.5-10.1 [facility] Serum or plasma creatinine m easurement (mass/volume)Ordered By: Loly Sierra on 02-08-2023 Creatinine [Mass/Vol] 0.81 mg/dL 0.55-1.02 [facility] Serum or plasma urea nitroge n measurement (mass/volume)Ordered By: Loly Sierra on 02-08-2023 Urea nitrogen [Mass/Vol] 10 mg/dL 7-18 [facility] Squamous epithelial cells de tection in urine sediment by light microscopyOrdered By: Loly Sierra on 02-08-2023 Epithelial cells.squamous LM Ql (Urine sed) 0-5 SEEN /hpf 5-10 [facility] Thin prep Papanicolaou smear with manual screeningOrdered By: Loly Sierra on 02-08-2023 Thin prep Papanicolaou smear with manual screening 12 U/L 15-37 [facility] Thin prep Papanicolaou smear with manual screening 4 5-15 [facility] Urine blood detectionOrdered By: Loly Sierra on 02-08-2023 RBC Ql (U) Negative Negative [facility] RBC Ql (U) 0 SEEN /hpf 0-5 [facility] Urine clarityOrdered By: Reyna Sierra on 02-08-2023 Clarity (U) Clear Clear [facility] Urine color determinationOrd ered By: Loyl Sierra on 02-08-2023 Color (U) Yellow Yellow [facility] Urine glucose detectionOrder ed By: Loly Sierra on 02-08-2023 Glucose Ql (U) Normal mg/dl Normal [facility] Urine leukocyte esterase det ection by dipstickOrdered By: Loly Sierra on 02-08-2023 Leukocyte esterase Test strip Ql (U) Negative Negative [facility] Urine pHOrdered By: Loly ferris on 02-08-2023 pH (U) 6.0 [pH] 5.0 - 8.0 [facility] Urine sediment bacteria coun t by microscopy (number/high power field)Ordered By: Loly Sierra on 02-08-2023 Bacteria LM.HPF (Urine sed) [#/Area] 0 /[HPF] None Seen [facility] Urine specific gravity measu rementOrdered By: Loly Sierra on 02-08-2023 Specific gravity (U) [Rel density] 1.020 1.002-1.030 [facility] Urobilinogen Auto test strip Ql (U)Ordered By: Loly Sierra on 02-08-2023 Urobilinogen Ql (U) Normal mg/dl Normal [facility] CNPNon 02-02-2023 CNPN Telephone (FAMPWS) LANA RIVERA ([id number]) 1985 F Date Time Provider Department 02/02/23 NIAM KAUR FAMWS During your visit today, we recorded the following information about you: Radha Stark 02/02/2023 2:03 PM Signed Lana Rivera is calling Nima Kaur MD today with concern regarding appointment on 02/06 with [facility]. Patient asking who scheduled appointment because she did not. Please return call to patient. Patient has been identified by name and birthdate. Duration of symptoms: N/A Person calling: self Call patient at: on cell [phone] (home) [phone] (cell) Was an appointment scheduled: No Closing statement: Results or non-symptom based questions: Thank you for calling [facility], your call will be returned within the [...] Fully Assessed Reason for Visit: Patient Question [8597] Prescriptions as of 02/02/2023 - hydrOXYzine pamoate [...] Status:Closed by RIYA AGUILAR on 02/02/23 Normal [facility] Absolute lymphocyte countOrd ered By: Stephany Robbins on 12-25-2022 Lymphocytes Auto (Unsp spec) [#/Vol] 1.23 10*3/uL 0.83-4.51 [facility] Basophil percentageOrdered B y: Stephany Robbins on 12-25-2022 Basophil percentage 124 mg/dL 74-106 [facility] Basophil percentage 138 mmol/L 136-145 [facility] Basophil percentage 3.8 mmol/L 3.5-5.1 [facility] Basophil percentage 106 mmol/L 98-107 [facility] Basophils (Bld) [#/Vol] 4.6 10*3/uL 4.4-11.0 [facility] Basophils (Bld) [#/Vol] 2.7 10*3/uL 2.0-7.7 [facility] Basophils/100 WBC (Bld) 0.9 % 0-1 [facility] Basophils/100 WBC (Bld) 58.5 % 47-70 [facility] Basophils/100 WBC (Bld) 5.7 % 0-5 [facility] Chloride [Moles/Vol] 106 mmol/L 98-107 [facility] Eosinophils/100 WBC (Bld) 5.7 % 0-5 [facility] Glucose [Mass/Vol] 124 mg/dL 74-106 [facility] Comment on above: Fasting Glucose resu lt from 100 to 125 mg/dL suggests IMPAIRED HOMEOSTASIS per A.D.A. criteria. Neutrophils (Bld) [#/Vol] 2.7 10*3/uL 2.0-7.7 [facility] Neutrophils/100 WBC (Bld) 58.5 % 47-70 [facility] Potassium [Moles/Vol] 3.8 mmol/L 3.5-5.1 [facility] Sodium [Moles/Vol] 138 mmol/L 136-145 [facility] WBC (Bld) [#/Vol] 4.6 10*3/uL 4.4-11.0 [facility] Blood erythrocytes count (nu mber/volume)Ordered By: Stephany Robbins on 12-25-2022 RBC (Bld) [#/Vol] 4.87 10*6/uL 4.2-5.4 [facility] Blood hemoglobin measurement (mass/volume)Ordered By: Stephany Robbins on 12-25-2022 Hemoglobin (Bld) [Mass/Vol] 13.4 g/dL 12.0-15.0 [facility] Blood lymphocytes/100 leukoc ytesOrdered By: Stephany Robbins on 12-25-2022 Lymphocytes/100 WBC (Bld) 26.7 % 19-41 [facility] Blood monocytes/100 leukocyt esOrdered By: Stephany Robbins on 12-25-2022 Monocytes/100 WBC (Bld) 7.8 % 0-10 [facility] Blood platelet mean volumeOr dered By: Stephany Robbins on 12-25-2022 Platelet mean volume (Bld) [Entitic vol] 10.8 fL 6.2-12.0 [facility] Determination of erythrocyte mean corpuscular volume (MCV)Ordered By: Stephany Robbins on 12-25-2022 MCV (RBC) [Entitic vol] 86.4 fL 81-99 [facility] Hematocrit Auto (Bld) [Volum e fraction]Ordered By: Stephany Robbins on 12-25-2022 Hematocrit (Bld) [Volume fraction] 42.1 % 37-47 [facility] Laboratory - Chemistry and C hemistry - challengeOrdered By: Stephany Robbins on 12-25-2022 CO2 [Moles/Vol] 26.0 mmol/L 21.0-32.0 [facility] Urea nitrogen/Creatinine [Mass ratio] 11.3 mg/mg 10-20 [facility] Laboratory - Hematology and Cell countsOrdered By: Stephany Robbins on 12-25-2022 Erythrocyte distribution width (RBC) [Entitic vol] 40.4 fL 35.1-43.9 [facility] Erythrocyte distribution width (RBC) [Ratio] 13.0 % 11.6-14.6 [facility] Immature granulocytes/100 WBC (Bld) 0.400 % 0.0-0.9 [facility] Comment on above: IG% - Immature Granu locytes (promyelocytes, myelocytes and metamyelocytes) > 1% indicates that a LEFT SHIFT is Present. MCH (RBC) [Entitic mass] 27.5 pg 27.0-32.0 [facility] Nucleated RBC/100 WBC (Bld) [Ratio] 0 % 0-5 [facility] MCHC Auto (RBC) [Mass/Vol]Or dered By: Stephany Robbins on 12-25-2022 MCHC (RBC) [Mass/Vol] 31.8 g/dL 32-36 [facility] No Panel InformationOrdered By: Stephany Robbins on 12-25-2022 Estimated Creatinine Clearance Calc 103.53 ml/min [facility] Estimated GFR (MDRD) Amer 120 mL/min >60 [facility] Comment on above: GFR Calc Estimated GFR (MDRD) Non-Af Amer 100 mL/min >60 [facility] Comment on above: Non- GFR Calc Troponin I High Sensitivity 3 pg/mL 3.0-54.0 [facility] Comment on above: Please Note: New Chantal t Units and Gender Specific Reference Ranges. For more information see Policy Stat Procedure [place] High Sensitivity Troponin (TNIH) and attachments. 27.5 pg 27.0-32.0 [facility] 13.0 % 11.6-14.6 [facility] 40.4 fl 35.1-43.9 [facility] 0.400 % 0.0-0.9 [facility] 0 % 0-5 [facility] 100 mL/min >60 [facility] 120 mL/min >60 [facility] 103.53 ml/min [facility] 11.3 RATIO 10-20 [facility] 3 pg/mL 3.0-54.0 [facility] 26.0 mmol/L 21.0-32.0 [facility] Platelets bldOrdered By: Tegan Robbins on 12-25-2022 Platelets (Bld) [#/Vol] 158 10*3/uL 150-450 [facility] Serum or plasma calcium mg urement (mass/volume)Ordered By: Stephany Robbins on 12-25-2022 Calcium [Mass/Vol] 8.6 mg/dL 8.5-10.1 [facility] Serum or plasma creatinine m easurement (mass/volume)Ordered By: Stephany Robbins on 12-25-2022 Creatinine [Mass/Vol] 0.71 mg/dL 0.55-1.02 [facility] Comment on above: The validity of the calculated GFR & GFRAA in patients over 70 years has not been determined. Clinical correlation is essential. Serum or plasma urea nitroge n measurement (mass/volume)Ordered By: Stephany Robbins on 12-25-2022 Urea nitrogen [Mass/Vol] 8 mg/dL 7-18 [facility] Thin prep Papanicolaou smear with manual screeningOrdered By: Stephany Robbins on 12-25-2022 Thin prep Papanicolaou smear with manual screening 6 5-15 [facility] Chlamydia trachomatis rRNA d etection by probe and target amplification methodOrdered By: Hanh Balderas on 12-15-2022 C. trachomatis rRNA JONE+probe Ql (Unsp spec) Negative Negative [facility] Gram stain for investigation of transfusion reactionOrdered By: Hanh Balderas on 12-15-2022 Microscopic observation Gram stain Nom (Unsp spec) [facility] Microscopic observation Gram stain Nom (Unsp spec) [facility] Laboratory - Microbiology an d Antimicrobial susceptibilityOrdered By: Hanh Balderas on 12-15-2022 N. gonorrhoeae DNA JONE+probe Ql (Unsp spec) Negative Negative [facility] Comment on above: Performed at: =[address] [id number] Director: Love Vance MD, Phone: [phone] No Panel InformationOrdered By: Hanh Balderas on 12-15-2022 Negative Negative [facility] No Panel Informationon 12-15 POC Trichomonas (Rapid) Negative [facility] Negative [facility] Thin prep Papanicolaou smear with manual screeningOrdered By: Hanh Balderas on 12-15-2022 Thin prep Papanicolaou smear with manual screening [facility] Thin prep Papanicolaou smear with manual screening [facility] Absolute lymphocyte countOrd ered By: Jesi Padilla on 11-19-2022 Lymphocytes Auto (Unsp spec) [#/Vol] 1.83 10*3/uL 0.83-4.51 [facility] Basophil percentageOrdered B y: Jesi Padilla on 11-19-2022 Basophil percentage 95 mg/dL 74-106 [facility] Basophil percentage 7.4 g/dL 6.4-8.2 [facility] Basophil percentage 0.40 mg/dL 0.20-1.00 [facility] Basophil percentage 138 mmol/L 136-145 [facility] Basophil percentage 3.5 mmol/L 3.5-5.1 [facility] Basophil percentage 105 mmol/L 98-107 [facility] Basophils (Bld) [#/Vol] 6.0 10*3/uL 4.4-11.0 [facility] Basophils (Bld) [#/Vol] 3.3 10*3/uL 2.0-7.7 [facility] Basophils/100 WBC (Bld) 55.7 % 47-70 [facility] Basophils/100 WBC (Bld) 4.7 % 0-5 [facility] Basophils/100 WBC (Bld) 0.5 % 0-1 [facility] Bilirubin [Mass/Vol] 0.40 mg/dL 0.20-1.00 [facility] Comment on above: For patients on eltr ombopag therapy, use of Dimension [place] TBIL is not recommended. Chloride [Moles/Vol] 105 mmol/L 98-107 [facility] Eosinophils/100 WBC (Bld) 4.7 % 0-5 [facility] Glucose [Mass/Vol] 95 mg/dL 74-106 [facility] Neutrophils (Bld) [#/Vol] 3.3 10*3/uL 2.0-7.7 [facility] Neutrophils/100 WBC (Bld) 55.7 % 47-70 [facility] Potassium [Moles/Vol] 3.5 mmol/L 3.5-5.1 [facility] Protein [Mass/Vol] 7.4 g/dL 6.4-8.2 [facility] Sodium [Moles/Vol] 138 mmol/L 136-145 [facility] WBC (Bld) [#/Vol] 6.0 10*3/uL 4.4-11.0 [facility] Blood erythrocytes count (nu mber/volume)Ordered By: Jesi Padilla on 11-19-2022 RBC (Bld) [#/Vol] 4.91 10*6/uL 4.2-5.4 [facility] Blood hemoglobin measurement (mass/volume)Ordered By: Jesi Padilla on 11-19-2022 Hemoglobin (Bld) [Mass/Vol] 13.5 g/dL 12.0-15.0 [facility] Blood lymphocytes/100 leukoc ytesOrdered By: Jesi Padilla on 11-19-2022 Lymphocytes/100 WBC (Bld) 30.7 % 19-41 [facility] Blood monocytes/100 leukocyt esOrdered By: Jesi Padilla on 11-19-2022 Monocytes/100 WBC (Bld) 8.1 % 0-10 [facility] Blood platelet mean volumeOr dered By: Jesi Padilla on 11-19-2022 Platelet mean volume (Bld) [Entitic vol] 10.7 fL 6.2-12.0 [facility] Determination of erythrocyte mean corpuscular volume (MCV)Ordered By: Jesi Padilla on 11-19-2022 MCV (RBC) [Entitic vol] 85.3 fL 81-99 [facility] Hematocrit Auto (Bld) [Volum e fraction]Ordered By: Jesi Padilla on 11-19-2022 Hematocrit (Bld) [Volume fraction] 41.9 % 37-47 [facility] Laboratory - Chemistry and C hemistry - challengeOrdered By: Jesi Padilla on 11-19-2022 ALP [Catalytic activity/Vol] 74 U/L 45-117 [facility] ALT [Catalytic activity/Vol] 25 U/L 13-56 [facility] CO2 [Moles/Vol] 30.0 mmol/L 21.0-32.0 [facility] Globulin (S) [Mass/Vol] 3.7 g/dL 2.2-4.2 [facility] Lipase [Catalytic activity/Vol] 30 U/L 13-75 [facility] Comment on above: Please note:LIPASE r evised reference range effective 22. New Lipase methodology. Expected to produce lower values than the previous assay method. NEW Reference Range: 13 - 75 U/L Urea nitrogen/Creatinine [Mass ratio] 13.7 mg/mg 10-20 [facility] Laboratory - Hematology and Cell countsOrdered By: Jesi Padilla on 11-19-2022 Erythrocyte distribution width (RBC) [Entitic vol] 39.4 fL 35.1-43.9 [facility] Erythrocyte distribution width (RBC) [Ratio] 12.7 % 11.6-14.6 [facility] Immature granulocytes/100 WBC (Bld) 0.300 % 0.0-0.9 [facility] Comment on above: IG% - Immature Granu locytes (promyelocytes, myelocytes and metamyelocytes) > 1% indicates that a LEFT SHIFT is Present. MCH (RBC) [Entitic mass] 27.5 pg 27.0-32.0 [facility] Nucleated RBC/100 WBC (Bld) [Ratio] 0 % 0-5 [facility] MCHC Auto (RBC) [Mass/Vol]Or dered By: Jesi Padilla on 11-19-2022 MCHC (RBC) [Mass/Vol] 32.2 g/dL 32-36 [facility] No Panel InformationOrdered By: Jesi Padilla on 11-19-2022 Estimated Creatinine Clearance Calc 91.88 ml/min [facility] Estimated GFR (MDRD) Amer 105 mL/min >60 [facility] Comment on above: GFR Calc Estimated GFR (MDRD) Non-Af Amer 86 mL/min >60 [facility] Comment on above: Non- GFR Calc 27.5 pg 27.0-32.0 [facility] 12.7 % 11.6-14.6 [facility] 39.4 fl 35.1-43.9 [facility] 0.300 % 0.0-0.9 [facility] 0 % 0-5 [facility] 86 mL/min >60 [facility] 105 mL/min >60 [facility] 91.88 ml/min [facility] 13.7 RATIO 10-20 [facility] 3.7 g/dL 2.2-4.2 [facility] 30 U/L 13-75 [facility] 74 U/L 45-117 [facility] 25 U/L 13-56 [facility] 30.0 mmol/L 21.0-32.0 [facility] Platelets bldOrdered By: Emily Padilla on 11-19-2022 Platelets (Bld) [#/Vol] 194 10*3/uL 150-450 [facility] Serum or plasma albumin mg urement (mass/volume)Ordered By: Jesi Padilla on 11-19-2022 Albumin [Mass/Vol] 3.7 g/dL 3.2-5.0 [facility] Serum or plasma albumin/glob ulin mass ratioOrdered By: Jesi Padilla on 11-19-2022 Albumin/Globulin [Mass ratio] 1.0 {ratio} 0.9-2.4 [facility] Serum or plasma calcium mg urement (mass/volume)Ordered By: Jesi Padilla on 11-19-2022 Calcium [Mass/Vol] 9.2 mg/dL 8.5-10.1 [facility] Serum or plasma creatinine m easurement (mass/volume)Ordered By: Jesi Padilla on 11-19-2022 Creatinine [Mass/Vol] 0.80 mg/dL 0.55-1.02 [facility] Comment on above: The validity of the calculated GFR & GFRAA in patients over 70 years has not been determined. Clinical correlation is essential. Serum or plasma urea nitroge n measurement (mass/volume)Ordered By: Jesi Padilla on 11-19-2022 Urea nitrogen [Mass/Vol] 11 mg/dL 7-18 [facility] Thin prep Papanicolaou smear with manual screeningOrdered By: Jesi Padilla on 11-19-2022 Thin prep Papanicolaou smear with manual screening 15 U/L 15-37 [facility] Thin prep Papanicolaou smear with manual screening 3 5-15 [facility] CNOVSPon 11-16-2022 CNOVSP Visit (SP) Office (AGGYNONPOB) LANA RIVERA ([id number]) 1985 F Date Time Provider Department 11/16/22 10:30 AM LUKASZ EUBANKS During your visit today, we [...] years as her is s/p vasectomy. Her Vascular Surgeon is Dr. Garcia and Dr. Moore The [...] bleeding, vaginal discharge and vaginal pain. 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 Seeing Dr. 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 Normal [facility] Trung 11-10-2022 [facility] Telephone (NOMAN Fernandes) LANA RIVERA ([id number]) 1985 F Date Time Provider Department 11/10/22 [...] Encounter Status:Closed by AZRA WEAVER on 11/10/22 [facility] Absolute lymphocyte countOrd ered By: Dr. Luis on 11-08-2022 Lymphocytes Auto (Unsp spec) [#/Vol] 1.54 10*3/uL 0.83-4.51 [facility] Basophil percentageOrdered B y: Dr. Luis on 11-08-2022 Basophil percentage 0 SEEN /hpf 0-5 [facility] Basophil percentage 84 mg/dL 74-106 [facility] Basophil percentage 7.6 g/dL 6.4-8.2 [facility] Basophil percentage 0.20 mg/dL 0.20-1.00 [facility] Basophil percentage 137 mmol/L 136-145 [facility] Basophil percentage 3.2 mmol/L 3.5-5.1 [facility] Basophil percentage 105 mmol/L 98-107 [facility] Basophils (Bld) [#/Vol] 5.7 10*3/uL 4.4-11.0 [facility] Basophils (Bld) [#/Vol] 3.2 10*3/uL 2.0-7.7 [facility] Basophils/100 WBC (Bld) 56.0 % 47-70 [facility] Basophils/100 WBC (Bld) 4.6 % 0-5 [facility] Basophils/100 WBC (Bld) 0.7 % 0-1 [facility] Basophil percentageOrdered B y: Dimple Luis on 11-08-2022 Bilirubin [Mass/Vol] 0.20 mg/dL 0.20-1.00 [facility] Comment on above: For patients on eltr ombopag therapy, use of Dimension [place] TBIL is not recommended. Chloride [Moles/Vol] 105 mmol/L 98-107 [facility] Eosinophils/100 WBC (Bld) 4.6 % 0-5 [facility] Glucose [Mass/Vol] 84 mg/dL 74-106 [facility] Neutrophils (Bld) [#/Vol] 3.2 10*3/uL 2.0-7.7 [facility] Neutrophils/100 WBC (Bld) 56.0 % 47-70 [facility] Potassium [Moles/Vol] 3.2 mmol/L 3.5-5.1 [facility] Protein [Mass/Vol] 7.6 g/dL 6.4-8.2 [facility] Sodium [Moles/Vol] 137 mmol/L 136-145 [facility] WBC (Bld) [#/Vol] 5.7 10*3/uL 4.4-11.0 [facility] Bilirubin Test strip Ql (U)O rdered By: Dr. Luis on 11-08-2022 Bilirubin Ql (U) Negative Negative [facility] Blood erythrocytes count (nu mber/volume)Ordered By: Dr. Luis on 11-08-2022 RBC (Bld) [#/Vol] 5.01 10*6/uL 4.2-5.4 [facility] Blood hemoglobin measurement (mass/volume)Ordered By: Dr. Luis on 11-08-2022 Hemoglobin (Bld) [Mass/Vol] 13.7 g/dL 12.0-15.0 [facility] Blood lymphocytes/100 leukoc ytesOrdered By: Dr. Luis on 11-08-2022 Lymphocytes/100 WBC (Bld) 27.2 % 19-41 [facility] Blood monocytes/100 leukocyt esOrdered By: Dr. Luis on 11-08-2022 Monocytes/100 WBC (Bld) 11.3 % 0-10 [facility] Blood platelet mean volumeOr dered By: Dr. uLis on 11-08-2022 Platelet mean volume (Bld) [Entitic vol] 11.3 fL 6.2-12.0 [facility] Determination of erythrocyte mean corpuscular volume (MCV)Ordered By: Dr. Luis on 11-08-2022 MCV (RBC) [Entitic vol] 85.2 fL 81-99 [facility] Direct bilirubinOrdered By: Dr. Luis on 11-08-2022 Bilirubin.direct [Mass/Vol] 0.07 mg/dL 0.00-0.30 [facility] Hematocrit Auto (Bld) [Volum e fraction]Ordered By: Dr. Luis on 11-08-2022 Hematocrit (Bld) [Volume fraction] 42.7 % 37-47 [facility] Ketones Test strip Ql (U)Ord ered By: Dr. Luis on 11-08-2022 Ketones Ql (U) Negative Negative [facility] Laboratory - Chemistry and C hemistry - challengeOrdered By: Dimple Luis on 11-08-2022 ALP [Catalytic activity/Vol] 72 U/L 45-117 [facility] ALT [Catalytic activity/Vol] 20 U/L 13-56 [facility] CO2 [Moles/Vol] 27.0 mmol/L 21.0-32.0 [facility] Globulin (S) [Mass/Vol] 3.8 g/dL 2.2-4.2 [facility] Lipase [Catalytic activity/Vol] 46 U/L 13-75 [facility] Comment on above: Please note:LIPASE r evised reference range effective 22. New Lipase methodology. Expected to produce lower values than the previous assay method. NEW Reference Range: 13 - 75 U/L Urea nitrogen/Creatinine [Mass ratio] 14.6 mg/mg 10-20 [facility] Laboratory - Hematology and Cell countsOrdered By: Dimple Luis on 11-08-2022 Erythrocyte distribution width (RBC) [Entitic vol] 39.6 fL 35.1-43.9 [facility] Erythrocyte distribution width (RBC) [Ratio] 12.9 % 11.6-14.6 [facility] Immature granulocytes/100 WBC (Bld) 0.200 % 0.0-0.9 [facility] Comment on above: IG% - Immature Granu locytes (promyelocytes, myelocytes and metamyelocytes) > 1% indicates that a LEFT SHIFT is Present. MCH (RBC) [Entitic mass] 27.3 pg 27.0-32.0 [facility] Nucleated RBC/100 WBC (Bld) [Ratio] 0 % 0-5 [facility] MCHC Auto (RBC) [Mass/Vol]Or dered By: Dr. Luis on 11-08-2022 MCHC (RBC) [Mass/Vol] 32.1 g/dL 32-36 [facility] Mucus LM Ql (Urine sed)Order ed By: Dr. Luis on 11-08-2022 Mucus Ql (Urine sed) 0 SEEN /hpf [facility] Nitrite Test strip Ql (U)Ord ered By: Dr. Luis on 11-08-2022 Nitrite Ql (U) Negative Negative [facility] No Panel InformationOrdered By: Dimple Luis on 11-08-2022 Estimated Creatinine Clearance Calc 98.01 ml/min [facility] Estimated GFR (MDRD) Amer 112 mL/min >60 [facility] Comment on above: GFR Calc Estimated GFR (MDRD) Non-Af Amer 93 mL/min >60 [facility] Comment on above: Non- GFR Calc No Panel InformationOrdered By: Dr. Luis on 11-08-2022 27.3 pg 27.0-32.0 [facility] 12.9 % 11.6-14.6 [facility] 39.6 fl 35.1-43.9 [facility] 0.200 % 0.0-0.9 [facility] 0 % 0-5 [facility] 93 mL/min >60 [facility] 112 mL/min >60 [facility] 98.01 ml/min [facility] 14.6 RATIO 10-20 [facility] 3.8 g/dL 2.2-4.2 [facility] 46 U/L 13-75 [facility] 72 U/L 45-117 [facility] 20 U/L 13-56 [facility] 27.0 mmol/L 21.0-32.0 [facility] Platelets bldOrdered By: Dr. Luis on 11-08-2022 Platelets (Bld) [#/Vol] 189 10*3/uL 150-450 [facility] Protein Test strip Ql (U)Ord ered By: Dr. Luis on 11-08-2022 Protein Ql (U) Negative Negative [facility] Serum or plasma albumin mg urement (mass/volume)Ordered By: Dr. Luis on 11-08-2022 Albumin [Mass/Vol] 3.8 g/dL 3.2-5.0 [facility] Serum or plasma calcium mg urement (mass/volume)Ordered By: Dr. Luis on 11-08-2022 Calcium [Mass/Vol] 9.3 mg/dL 8.5-10.1 [facility] Serum or plasma creatinine m easurement (mass/volume)Ordered By: Dr. Luis on 11-08-2022 Creatinine [Mass/Vol] 0.75 mg/dL 0.55-1.02 [facility] Comment on above: The validity of the calculated GFR & GFRAA in patients over 70 years has not been determined. Clinical correlation is essential. Serum or plasma urea nitroge n measurement (mass/volume)Ordered By: Dr. Luis on 11-08-2022 Urea nitrogen [Mass/Vol] 11 mg/dL 7-18 [facility] Squamous epithelial cells de tection in urine sediment by light microscopyOrdered By: Dr. Luis on 11-08-2022 Epithelial cells.squamous LM Ql (Urine sed) 0-5 SEEN /hpf 5-10 [facility] Thin prep Papanicolaou smear with manual screeningOrdered By: Dr. Luis on 11-08-2022 Thin prep Papanicolaou smear with manual screening 10 U/L 15-37 [facility] Thin prep Papanicolaou smear with manual screening 5 5-15 [facility] Urine blood detectionOrdered By: Dr. Luis on 11-08-2022 RBC Ql (U) Negative Negative [facility] RBC Ql (U) 0 SEEN /hpf 0-5 [facility] Urine clarityOrdered By: Dr. Luis on 11-08-2022 Clarity (U) Clear Clear [facility] Urine color determinationOrd ered By: Dr. Luis on 11-08-2022 Color (U) Yellow Yellow [facility] Urine glucose detectionOrder ed By: Dr. Luis on 11-08-2022 Glucose Ql (U) Normal mg/dl Normal [facility] Urine leukocyte esterase det ection by dipstickOrdered By: Dr. Luis on 11-08-2022 Leukocyte esterase Test strip Ql (U) Negative Negative [facility] Urine pHOrdered By: Dr. John apodaca on 11-08-2022 pH (U) 6.5 [pH] 5.0 - 8.0 [facility] Urine sediment bacteria coun t by microscopy (number/high power field)Ordered By: Dr. Luis on 11-08-2022 Bacteria LM.HPF (Urine sed) [#/Area] RARE /hpf None Seen [facility] Urine specific gravity measu rementOrdered By: Dr. Luis on 11-08-2022 Specific gravity (U) [Rel density] 1.015 1.002-1.030 [facility] Urobilinogen Auto test strip Ql (U)Ordered By: Dr. Luis on 11-08-2022 Urobilinogen Ql (U) Normal mg/dl Normal [facility] .Auto Diffon 10-11-2022 Basophil, Absolute 0.0 10 3/mcL Normal 0.0-0.2 [facility] ([place]) Comment on above: Performed By: #### A DIFF, CMP, MDW, LIP, CBC, ANEU, GFR #### [address] [address] Basophils/100 WBC (Bld) 0.9 % Normal 0.0-2.5 [facility] ([place]) Comment on above: Performed By: #### A DIFF, CMP, MDW, LIP, CBC, ANEU, GFR #### [address] [address] Eosinophil, Absolute 0.3 10 3/mcL Normal 0.0-0.4 [facility] ([place]) Comment on above: Performed By: #### A DIFF, CMP, MDW, LIP, CBC, ANEU, GFR #### [address] [address] Eosinophils/100 WBC (Bld) 5.3 % Normal 0.0-7.0 [facility] ([place]) Comment on above: Performed By: #### A DIFF, CMP, MDW, LIP, CBC, ANEU, GFR #### [address] [address] Lymphocyte, Absolute 1.7 10 3/mcL Normal 0.8-3.9 [facility] ([place]) Comment on above: Performed By: #### A DIFF, CMP, MDW, LIP, CBC, ANEU, GFR #### [address] [address] Lymphocytes/100 WBC (Bld) 33.5 % Normal 10.0-50.0 [facility] ([place]) Comment on above: Performed By: #### A DIFF, CMP, MDW, LIP, CBC, ANEU, GFR #### [address] [address] Monocyte, Absolute 0.5 10 3/mcL Normal 0.2-1.0 [facility] ([place]) Comment on above: Performed By: #### A DIFF, CMP, MDW, LIP, CBC, ANEU, GFR #### [address] [address] Monocytes/100 WBC (Bld) 10.0 % Normal 1.7-13.0 [facility] ([place]) Comment on above: Performed By: #### A DIFF, CMP, MDW, LIP, CBC, ANEU, GFR #### [address] [address] Neutrophils/100 WBC (Bld) 50.3 % Normal 37.0-80.0 [facility] ([place]) Comment on above: Performed By: #### A DIFF, CMP, MDW, LIP, CBC, ANEU, GFR #### [address] [address] .GFRon 10-11-2022 GFR 102 ml/min/1.73sqm Normal [facility] ([place]) Comment on above: Result Comment: GFR Population [...] CMP, MDW, LIP, CBC, ANEU, GFR #### [address] [address] GFR Non- 84 ml/min/1.73sqm Normal [facility] ([place]) Comment on above: Result Comment: GFR Population [...] CMP, MDW, LIP, CBC, ANEU, GFR #### [place] [id number] .MDWon 10-11-2022 Monocyte Distribution Width 17.66 Normal 0.00-20.00 [facility] ([place]) Comment on above: Result Comment: For ED adult patients suspected of sepsis, MDW<=20.0 does not rule out sepsis or risk of sepsis Performed By: #### A DIFF, CMP, MDW, LIP, CBC, ANEU, GFR #### [place] [address] .NEUABSon 10-11-2022 Neutrophil, Absolute 2.6 10 3/mcL Low 2.9-6.2 [facility] ([place]) Comment on above: Performed By: #### A DIFF, CMP, MDW, LIP, CBC, ANEU, GFR #### [place] [address] CBCon 10-11-2022 Erythrocyte distribution width (RBC) [Ratio] 13.5 % Normal 11.5-14.5 [facility] ([place]) Comment on above: Performed By: #### A DIFF, CMP, MDW, LIP, CBC, ANEU, GFR #### [place] [address] Hematocrit (Bld) [Volume fraction] 40.8 % Normal 37.0-47.0 [facility] ([place]) Comment on above: Performed By: #### A DIFF, CMP, MDW, LIP, CBC, ANEU, GFR #### [place] [address] Hgb 13.7 G/dL Normal 12.0-16.0 [facility] ([place]) Comment on above: Performed By: #### A DIFF, CMP, MDW, LIP, CBC, ANEU, GFR #### [place] [address] MCH (RBC) [Entitic mass] 28.0 pg Normal 27.0-31.2 [facility] ([place]) Comment on above: Performed By: #### A DIFF, CMP, MDW, LIP, CBC, ANEU, GFR #### [address] [address] MCHC 33.6 G/dL Normal 33.0-37.0 [facility] ([place]) Comment on above: Performed By: #### A DIFF, CMP, MDW, LIP, CBC, ANEU, GFR #### [address] [address] MCV (RBC) [Entitic vol] 83.2 fL Normal 80.0-94.0 [facility] ([place]) Comment on above: Performed By: #### A DIFF, CMP, MDW, LIP, CBC, ANEU, GFR #### [address] [address] Platelet 171 10 3/mcL Normal 130-400 [facility] ([place]) Comment on above: Performed By: #### A DIFF, CMP, MDW, LIP, CBC, ANEU, GFR #### [address] [address] Platelet mean volume (Bld) [Entitic vol] 9.2 fL Normal 7.4-10.4 [facility] ([place]) Comment on above: Performed By: #### A DIFF, CMP, MDW, LIP, CBC, ANEU, GFR #### [place] [address] RBC 4.91 10 6/mcL Normal 4.20-5.40 [facility] ([place]) Comment on above: Performed By: #### A DIFF, CMP, MDW, LIP, CBC, ANEU, GFR #### [place] [address] WBC 5.2 10 3/mcL Normal 4.6-10.8 [facility] ([place]) Comment on above: Performed By: #### A DIFF, CMP, MDW, LIP, CBC, ANEU, GFR #### [address] [address] CMPon 10-11-2022 Albumin Level 3.9 G/dL Normal 3.5-5.0 [facility] ([place]) Comment on above: Performed By: #### A DIFF, CMP, MDW, LIP, CBC, ANEU, GFR #### [address] [address] Albumin/Globulin [Mass ratio] 1.3 {ratio} Normal 1.1-2.5 [facility] ([place]) Comment on above: Performed By: #### A DIFF, CMP, MDW, LIP, CBC, ANEU, GFR #### [address] [address] ALP [Catalytic activity/Vol] 78 U/L Normal 40-135 [facility] ([place]) Comment on above: Performed By: #### A DIFF, CMP, MDW, LIP, CBC, ANEU, GFR #### [place] [id number] ALT [Catalytic activity/Vol] 17 U/L Normal 14-59 [facility] ([place]) Comment on above: Performed By: #### A DIFF, CMP, MDW, LIP, CBC, ANEU, GFR #### [place] [address] AST [Catalytic activity/Vol] 11 U/L Normal 10-40 [facility] ([place] Comment on above: Performed By: #### A DIFF, CMP, MDW, LIP, CBC, ANEU, GFR #### [address] [address] Bili Total 0.2 mg/dL Normal 0.2-1.0 [facility] ([place] Comment on above: Result Comment: Use of this assay is not recommended for patients undergoing treatment with eltrombopag due to the potential for falsely elevated results. Performed By: #### A DIFF, CMP, MDW, LIP, CBC, ANEU, GFR #### [place] [id number] BUN/Creatinine Ratio 12 ratio Normal 7-27 [facility] ([place] Comment on above: Performed By: #### A DIFF, CMP, MDW, LIP, CBC, ANEU, GFR #### [address] [address] Calcium [Mass/Vol] 8.7 mg/dL Normal 8.4-10.2 [facility] ([place] Comment on above: Performed By: #### A DIFF, CMP, MDW, LIP, CBC, ANEU, GFR #### [place] [address] Chloride [Moles/Vol] 104 mmol/L Normal 98-107 [facility] ([place] Comment on above: Performed By: #### A DIFF, CMP, MDW, LIP, CBC, ANEU, GFR #### [place] [address] CO2 [Moles/Vol] 28 mmol/L Normal 22-29 [facility] ([place] Comment on above: Performed By: #### A DIFF, CMP, MDW, LIP, CBC, ANEU, GFR #### [place] [id number] Creatinine [Mass/Vol] 0.78 mg/dL Normal 0.55-1.02 [facility] ([place] Comment on above: Performed By: #### A DIFF, CMP, MDW, LIP, CBC, ANEU, GFR #### [address] [address] Electrolyte Balance 8.0 mEq/L Normal 4.0-15.0 [facility] ([place] Comment on above: Performed By: #### A DIFF, CMP, MDW, LIP, CBC, ANEU, GFR #### [address] [address] Globulin 3.0 G/dL Normal [facility] ([place] Comment on above: Performed By: #### A DIFF, CMP, MDW, LIP, CBC, ANEU, GFR #### [address] [address] Glucose [Mass/Vol] 106 mg/dL High 70-105 [facility] ([place] Comment on above: Performed By: #### A DIFF, CMP, MDW, LIP, CBC, ANEU, GFR #### [address] [address] Potassium [Moles/Vol] 3.5 mmol/L Normal 3.5-5.1 [facility] ([place] Comment on above: Performed By: #### A DIFF, CMP, MDW, LIP, CBC, ANEU, GFR #### [address] [address] Sodium [Moles/Vol] 140 mmol/L Normal 136-145 [facility] ([place] Comment on above: Performed By: #### A DIFF, CMP, MDW, LIP, CBC, ANEU, GFR #### [address] [address] Total Protein 6.9 G/dL Normal 6.4-8.2 [facility] ([place] Comment on above: Performed By: #### A DIFF, CMP, MDW, LIP, CBC, ANEU, GFR #### [address] [address] Urea nitrogen [Mass/Vol] 9 mg/dL Normal 7-18 [facility] ([place] Comment on above: Performed By: #### A DIFF, CMP, MDW, LIP, CBC, ANEU, GFR #### [address] [address] [address] ABD/PELVIS W/ IV CONTRAST ONLYon 10-11-2022 [...] by: Germán Renteria Preliminary Report By: Germán Retneria Electronically signed By Germán Renteria Dictated Date: 10/11/2022 9:35:00 PM Prelim Date: 10/11/2022 9:56:00 PM Sign Date: 10/11/2022 9:56:00 PM Ordering Provider: BALDO FENG Normal [facility] ([place]) LIPon 10-11-2022 Lipase Level 42 U/L Normal 16-77 [facility] ([place]) Comment on above: Performed By: #### A DIFF, CMP, MDW, LIP, CBC, ANEU, GFR #### [address] [address] UAon 10-11-2022 Color (U) Yellow Normal [facility] ([place] Comment on above: Performed By: #### U A #### [address] [address] Glucose (U) [Mass/Vol] 100 mg/dL Abnormal Negative [facility] ([place]) Comment on above: Performed By: #### U A #### [address] [address] Ketones Ql (U) Negative Normal Negative [facility] ([place] Comment on above: Performed By: #### U A #### [address] [address] UA Appear Clear Normal Clear [facility] ([place] Comment on above: Performed By: #### U A #### [address] [address] UA Blood Negative Normal Negative [facility] ([place] Comment on above: Performed By: #### U A #### [place] [address] [address] UA Leuk Est Negative Normal Negative [facility] ([place] Comment on above: Performed By: #### U A #### [address] [address] UA Nitrite Negative Normal Negative [facility] ([place] Comment on above: Performed By: #### U A #### [place] [address] UA pH 7.0 Normal 5.0 - 8.0 [facility] ([place] Comment on above: Performed By: #### U A #### [place] [address] UA Protein Negative Normal Negative [facility] ([place] Comment on above: Performed By: #### U A #### [place] [address] UA Spec Grav 1.025 Normal 1.015-1.025 [facility] ([place] Comment on above: Performed By: #### U A #### [place] [address] UA Specimen Type Clean Catch Normal [facility] ([place] Comment on above: Performed By: #### U A #### [address] [address] UA Urobilinogen 0.2 E.U./dL Normal 0.2-1.0 [facility] ([place] Comment on above: Performed By: #### U A #### [place] [address] Urobilinogen (U) [Mass/Vol] Negative Normal Negative [facility] ([place] Comment on above: Performed By: #### U A #### [place] [address] Basophil percentageOrdered B y: Dr. Luis on 08-26-2022 Basophil percentage 104 mg/dL 74-106 [facility] Basophil percentage 139 mmol/L 136-145 [facility] Basophil percentage 3.7 mmol/L 3.5-5.1 [facility] Basophil percentage 106 mmol/L 98-107 [facility] Basophil percentageOrdered B y: Dimple Luis on 08-26-2022 Chloride [Moles/Vol] 106 mmol/L 98-107 [facility] Glucose [Mass/Vol] 104 mg/dL 74-106 [facility] Comment on above: Fasting Glucose resu lt from 100 to 125 mg/dL suggests IMPAIRED HOMEOSTASIS per A.D.A. criteria. Potassium [Moles/Vol] 3.7 mmol/L 3.5-5.1 [facility] Sodium [Moles/Vol] 139 mmol/L 136-145 [facility] Laboratory - Chemistry and C hemistry - challengeOrdered By: Dimple Luis on 08-26-2022 CO2 [Moles/Vol] 27.0 mmol/L 21.0-32.0 [facility] Urea nitrogen/Creatinine [Mass ratio] 9.2 mg/mg 10- [facility] No Panel InformationOrdered By: Dimple Luis on 08-26-2022 Estimated Creatinine Clearance Calc 96.72 ml/min [facility] Estimated GFR (MDRD) Amer 111 mL/min >60 [facility] Comment on above: GFR Calc Estimated GFR (MDRD) Non-Af Amer 92 mL/min >60 [facility] Comment on above: Non- GFR Calc No Panel InformationOrdered By: Dr. Luis on 08-26-2022 92 mL/min >60 [facility] 111 mL/min >60 [facility] 96.72 ml/min [facility] 9.2 RATIO 03-10 [facility] 27.0 mmol/L 21.0-32.0 [facility] Serum or plasma calcium mg urement (mass/volume)Ordered By: Dr. Luis on 08-26-2022 Calcium [Mass/Vol] 8.6 mg/dL 8.5-10.1 [facility] Serum or plasma creatinine m easurement (mass/volume)Ordered By: Dr. Luis on 08-26-2022 Creatinine [Mass/Vol] 0.76 mg/dL 0.55-1.02 [facility] Comment on above: The validity of the calculated GFR & GFRAA in patients over 70 years has not been determined. Clinical correlation is essential. Serum or plasma urea nitroge n measurement (mass/volume)Ordered By: Dr. Luis on 08-26-2022 Urea nitrogen [Mass/Vol] 7 mg/dL 7-18 [facility] Thin prep Papanicolaou smear with manual screeningOrdered By: Dr. Luis on 08-26-2022 Thin prep Papanicolaou smear with manual screening 6 5-15 [facility] Absolute lymphocyte countOrd ered By: Dr. Luis on 08-17-2022 Lymphocytes Auto (Unsp spec) [#/Vol] 1.31 10*3/uL 0.83-4.51 [facility] Basophil percentageOrdered B y: Dr. Luis on 08-17-2022 Basophil percentage 128 mg/dL 74-106 [facility] Basophil percentage 138 mmol/L 136-145 [facility] Basophil percentage 3.9 mmol/L 3.5-5.1 [facility] Basophil percentage 106 mmol/L 98-107 [facility] Basophils (Bld) [#/Vol] 5.2 10*3/uL 4.4-11.0 [facility] Basophils (Bld) [#/Vol] 3.2 10*3/uL 2.0-7.7 [facility] Basophils/100 WBC (Bld) 62.1 % 47-70 [facility] Basophils/100 WBC (Bld) 4.0 % 0-5 [facility] Basophils/100 WBC (Bld) 0.4 % 0-1 [facility] Basophil percentageOrdered B y: Dimple Luis on 08-17-2022 Chloride [Moles/Vol] 106 mmol/L 98-107 [facility] Eosinophils/100 WBC (Bld) 4.0 % 0-5 [facility] Glucose [Mass/Vol] 128 mg/dL 74-106 [facility] Comment on above: Fasting Glucose resu lt greater than or equal to 126 mg/dL suggests DIABETES MELLITUS per A.D.A. criteria. Neutrophils (Bld) [#/Vol] 3.2 10*3/uL 2.0-7.7 [facility] Neutrophils/100 WBC (Bld) 62.1 % 47-70 [facility] Potassium [Moles/Vol] 3.9 mmol/L 3.5-5.1 [facility] Sodium [Moles/Vol] 138 mmol/L 136-145 [facility] WBC (Bld) [#/Vol] 5.2 10*3/uL 4.4-11.0 [facility] Beta hCG serum qualOrdered B y: Dr. Luis on 08-17-2022 Beta HCG ( test) Ql Negative [facility] Blood erythrocytes count (nu mber/volume)Ordered By: Dr. Luis on 08-17-2022 RBC (Bld) [#/Vol] 5.00 10*6/uL 4.2-5.4 [facility] Blood hemoglobin measurement (mass/volume)Ordered By: Dr. Luis on 08-17-2022 Hemoglobin (Bld) [Mass/Vol] 13.8 g/dL 12.0-15.0 [facility] Blood lymphocytes/100 leukoc ytesOrdered By: Dr. Luis on 08-17-2022 Lymphocytes/100 WBC (Bld) 25.2 % 19-41 [facility] Blood monocytes/100 leukocyt esOrdered By: Dr. Luis on 08-17-2022 Monocytes/100 WBC (Bld) 7.9 % 0-10 [facility] Blood platelet mean volumeOr dered By: Dr. Luis on 08-17-2022 Platelet mean volume (Bld) [Entitic vol] 10.8 fL 6.2-12.0 [facility] Determination of erythrocyte mean corpuscular volume (MCV)Ordered By: Dr. Luis on 08-17-2022 MCV (RBC) [Entitic vol] 85.4 fL 81-99 [facility] Hematocrit Auto (Bld) [Volum e fraction]Ordered By: Dr. Luis on 08-17-2022 Hematocrit (Bld) [Volume fraction] 42.7 % 37-47 [facility] Laboratory - Chemistry and C hemistry - challengeOrdered By: Dimple Luis on 08-17-2022 CO2 [Moles/Vol] 27.0 mmol/L 21.0-32.0 [facility] Urea nitrogen/Creatinine [Mass ratio] 13.4 mg/mg 10-20 [facility] Laboratory - Hematology and Cell countsOrdered By: Dimple Luis on 08-17-2022 Erythrocyte distribution width (RBC) [Entitic vol] 39.5 fL 35.1-43.9 [facility] Erythrocyte distribution width (RBC) [Ratio] 12.8 % 11.6-14.6 [facility] Immature granulocytes/100 WBC (Bld) 0.400 % 0.0-0.9 [facility] Comment on above: IG% - Immature Granu locytes (promyelocytes, myelocytes and metamyelocytes) > 1% indicates that a LEFT SHIFT is Present. MCH (RBC) [Entitic mass] 27.6 pg 27.0-32.0 [facility] Nucleated RBC/100 WBC (Bld) [Ratio] 0 % 0-5 [facility] MCHC Auto (RBC) [Mass/Vol]Or dered By: Dr. Luis on 08-17-2022 MCHC (RBC) [Mass/Vol] 32.3 g/dL 32-36 [facility] No Panel InformationOrdered By: Dimple Luis on 08-17-2022 Estimated Creatinine Clearance Calc 109.71 ml/min [facility] Estimated GFR (MDRD) Amer 128 mL/min >60 [facility] Comment on above: GFR Calc Estimated GFR (MDRD) Non-Af Amer 106 mL/min >60 [facility] Comment on above: Non- GFR Calc Troponin I High Sensitivity 3 pg/mL 3.0-54.0 [facility] Comment on above: Please Note: New Chantal t Units and Gender Specific Reference Ranges. For more information see Policy Stat Procedure [place] High Sensitivity Troponin (TNIH) and attachments. No Panel InformationOrdered By: Dr. Luis on 08-17-2022 27.6 pg 27.0-32.0 [facility] 12.8 % 11.6-14.6 [facility] 39.5 fl 35.1-43.9 [facility] 0.400 % 0.0-0.9 [facility] 0 % 0-5 [facility] 106 mL/min >60 [facility] 128 mL/min >60 [facility] 109.71 ml/min [facility] 13.4 RATIO 10-20 [facility] 3 pg/mL 3.0-54.0 [facility] 27.0 mmol/L 21.0-32.0 [facility] Platelets bldOrdered By: Dr. Luis on 08-17-2022 Platelets (Bld) [#/Vol] 175 10*3/uL 150-450 [facility] Serum or plasma calcium mg urement (mass/volume)Ordered By: Dr. Luis on 08-17-2022 Calcium [Mass/Vol] 8.7 mg/dL 8.5-10.1 [facility] Serum or plasma creatinine m easurement (mass/volume)Ordered By: Dr. Luis on 08-17-2022 Creatinine [Mass/Vol] 0.67 mg/dL 0.55-1.02 [facility] Comment on above: The validity of the calculated GFR & GFRAA in patients over 70 years has not been determined. Clinical correlation is essential. Serum or plasma urea nitroge n measurement (mass/volume)Ordered By: Dr. Luis on 08-17-2022 Urea nitrogen [Mass/Vol] 9 mg/dL 7-18 [facility] Thin prep Papanicolaou smear with manual screeningOrdered By: Dr. Luis on 08-17-2022 Thin prep Papanicolaou smear with manual screening 5 5-15 [facility] Absolute lymphocyte countOrd ered By: Royce Bangura on 07-17-2022 Lymphocytes Auto (Unsp spec) [#/Vol] 1.50 10*3/uL 0.83-4.51 [facility] Basophil percentageOrdered B y: Royce Bangura on 07-17-2022 Basophil percentage 123 mg/dL 74-106 [facility] Basophil percentage 6.8 g/dL 6.4-8.2 [facility] Basophil percentage 0.40 mg/dL 0.20-1.00 [facility] Basophil percentage 140 mmol/L 136-145 [facility] Basophil percentage 3.4 mmol/L 3.5-5.1 [facility] Basophil percentage 104 mmol/L 98-107 [facility] Basophils (Bld) [#/Vol] 4.1 10*3/uL 4.4-11.0 [facility] Basophils (Bld) [#/Vol] 2.1 10*3/uL 2.0-7.7 [facility] Basophils/100 WBC (Bld) 50.5 % 47-70 [facility] Basophils/100 WBC (Bld) 3.2 % 0-5 [facility] Basophils/100 WBC (Bld) 0.7 % 0-1 [facility] Blood erythrocytes count (nu mber/volume)Ordered By: Royce Bangura on 07-17-2022 RBC (Bld) [#/Vol] 4.75 10*6/uL 4.2-5.4 [facility] Blood hemoglobin measurement (mass/volume)Ordered By: Royce Bangura on 07-17-2022 Hemoglobin (Bld) [Mass/Vol] 13.1 g/dL 12.0-15.0 [facility] Blood lymphocytes/100 leukoc ytesOrdered By: Royce Bangura on 07-17-2022 Lymphocytes/100 WBC (Bld) 36.8 % 19-41 [facility] Blood monocytes/100 leukocyt esOrdered By: Royce Bangura on 07-17-2022 Monocytes/100 WBC (Bld) 8.6 % 0-10 [facility] Blood platelet mean volumeOr dered By: Royce Bangura on 07-17-2022 Platelet mean volume (Bld) [Entitic vol] 11.2 fL 6.2-12.0 [facility] Determination of erythrocyte mean corpuscular volume (MCV)Ordered By: Royce Bangura on 07-17-2022 MCV (RBC) [Entitic vol] 86.3 fL 81-99 [facility] Hematocrit Auto (Bld) [Volum e fraction]Ordered By: Royce Bangura on 07-17-2022 Hematocrit (Bld) [Volume fraction] 41.0 % 37-47 [facility] MCHC Auto (RBC) [Mass/Vol]Or dered By: Royce Bangura on 07-17-2022 MCHC (RBC) [Mass/Vol] 32.0 g/dL 32-36 [facility] No Panel InformationOrdered By: Royce Bangura on 07-17-2022 27.6 pg 27.0-32.0 [facility] 13.9 % 11.6-14.6 [facility] 43.2 fl 35.1-43.9 [facility] 0.200 % 0.0-0.9 [facility] 0 % 0-5 [facility] 94 mL/min >60 [facility] 113 mL/min >60 [facility] 98.01 ml/min [facility] 9.3 RATIO 10-20 [facility] 3.2 g/dL 2.2-4.2 [facility] 120 U/L 73-393 [facility] < 3 pg/mL 3.0-54.0 [facility] 60 U/L 45-117 [facility] 24 U/L 13-56 [facility] 29.0 mmol/L 21.0-32.0 [facility] 1.37 uIU/mL 0.358-3.74 [facility] Platelets bldOrdered By: Lita Bangura on 07-17-2022 Platelets (Bld) [#/Vol] 160 10*3/uL 150-450 [facility] Serum or plasma albumin mg urement (mass/volume)Ordered By: Royce Bangura on 07-17-2022 Albumin [Mass/Vol] 3.6 g/dL 3.2-5.0 [facility] Serum or plasma albumin/glob ulin mass ratioOrdered By: Royce Bangura on 07-17-2022 Albumin/Globulin [Mass ratio] 1.1 {ratio} 0.9-2.4 [facility] Serum or plasma calcium mg urement (mass/volume)Ordered By: Royce Bangura on 07-17-2022 Calcium [Mass/Vol] 9.1 mg/dL 8.5-10.1 [facility] Serum or plasma creatinine m easurement (mass/volume)Ordered By: Royce Bangura on 07-17-2022 Creatinine [Mass/Vol] 0.75 mg/dL 0.55-1.02 [facility] Serum or plasma urea nitroge n measurement (mass/volume)Ordered By: Royce Bangura on 07-17-2022 Urea nitrogen [Mass/Vol] 7 mg/dL 7-18 [facility] Thin prep Papanicolaou smear with manual screeningOrdered By: Royce Bangura on 07-17-2022 Thin prep Papanicolaou smear with manual screening 10 U/L 15-37 [facility] Thin prep Papanicolaou smear with manual screening 7 5-15 [facility] Absolute lymphocyte countOrd ered By: Rea Poon on 07-14-2022 Lymphocytes Auto (Unsp spec) [#/Vol] 1.51 10*3/uL 0.83-4.51 [facility] Atypical perinuclear antineu trophil cytoplasmic antibodies measurementOrdered By: Rea Poon on 07-14-2022 Neutrophil cytoplasmic Ab.perinuclear.atypical IF (S) [Titer] <1:20 titer Neg:<1:20 [facility] Basophil percentageOrdered B y: Rea Poon on 07-14-2022 Basophil percentage 118 mg/dL 74-106 [facility] Basophil percentage 7.2 g/dL 6.4-8.2 [facility] Basophil percentage 0.40 mg/dL 0.20-1.00 [facility] Basophil percentage 138 mmol/L 136-145 [facility] Basophil percentage 3.4 mmol/L 3.5-5.1 [facility] Basophil percentage 103 mmol/L 98-107 [facility] Basophil percentage < 0.2 AI 0.0-0.9 [facility] Basophils (Bld) [#/Vol] 6.2 10*3/uL 4.4-11.0 [facility] Basophils (Bld) [#/Vol] 3.9 10*3/uL 2.0-7.7 [facility] Basophils/100 WBC (Bld) 63.9 % 47-70 [facility] Basophils/100 WBC (Bld) 2.9 % 0-5 [facility] Basophils/100 WBC (Bld) 0.5 % 0-1 [facility] Blood erythrocytes count (nu mber/volume)Ordered By: Rea Poon on 07-14-2022 RBC (Bld) [#/Vol] 4.95 10*6/uL 4.2-5.4 [facility] Blood hemoglobin measurement (mass/volume)Ordered By: Rea Poon on 07-14-2022 Hemoglobin (Bld) [Mass/Vol] 13.7 g/dL 12.0-15.0 [facility] Blood lymphocytes/100 leukoc ytesOrdered By: Rea Poon on 07-14-2022 Lymphocytes/100 WBC (Bld) 24.5 % 19-41 [facility] Blood monocytes/100 leukocyt esOrdered By: Rea Poon on 07-14-2022 Monocytes/100 WBC (Bld) 7.9 % 0-10 [facility] Blood platelet mean volumeOr dered By: Rea Poon on 07-14-2022 Platelet mean volume (Bld) [Entitic vol] 11.2 fL 6.2-12.0 [facility] Determination of erythrocyte mean corpuscular volume (MCV)Ordered By: Rea Poon on 07-14-2022 MCV (RBC) [Entitic vol] 86.5 fL 81-99 [facility] Erythrocyte sedimentation ra teOrdered By: Rea Poon on 07-14-2022 ESR (Bld) [Velocity] 2 mm/h 0-30 [facility] Hematocrit Auto (Bld) [Volum e fraction]Ordered By: Rea Poon on 07-14-2022 Hematocrit (Bld) [Volume fraction] 42.8 % 37-47 [facility] MCHC Auto (RBC) [Mass/Vol]Or dered By: Rea Poon on 07-14-2022 MCHC (RBC) [Mass/Vol] 32.0 g/dL 32-36 [facility] No Panel InformationOrdered By: Rea Poon on 07-14-2022 <2 U/mL 0-5 [facility] 27.7 pg 27.0-32.0 [facility] 14.3 % 11.6-14.6 [facility] 44.9 fl 35.1-43.9 [facility] 0.300 % 0.0-0.9 [facility] 0 % 0-5 [facility] 83 mL/min >60 [facility] 100 mL/min >60 [facility] 7.2 RATIO 10-20 [facility] 3.5 g/dL 2.2-4.2 [facility] 60 U/L 45-117 [facility] 25 U/L 13-56 [facility] 30.0 mmol/L 21.0-32.0 [facility] 0.3 AI 0.0-0.9 [facility] <0.2 AI 0.0-0.9 [facility] Negative Negative [facility] Platelets bldOrdered By: Eleanor Poon on 07-14-2022 Platelets (Bld) [#/Vol] 180 10*3/uL 150-450 [facility] Serum DNA double strand anti body assay (units/volume)Ordered By: Rea Poon on 07-14-2022 DNA double strand Ab Qn (S) [IU]/mL 0-9 [facility] Serum IgA measurement (units /volume)Ordered By: Rea Poon on 07-14-2022 IgA Qn (S) 19 mg/dL 87-352 [facility] Serum Alise-1 antibody assay (u nits/volume)Ordered By: Rea Poon on 07-14-2022 Alise-1 extractable nuclear Ab Qn (S) <0.2 AI 0.0-0.9 [facility] Serum Scl-70 extractable nuc lear antibody assay (units/volume)Ordered By: Rea Poon on 07-14-2022 SCL-70 extractable nuclear Ab Qn (S) <0.2 AI 0.0-0.9 [facility] Serum Freedman extractable nucl ear antibody detectionOrdered By: Rea Poon on 07-14-2022 Freedman extractable nuclear Ab Ql (S) <0.2 AI 0.0-0.9 [facility] Serum classic neutrophil cyt oplasmic antibody assay (units/volume)Ordered By: Rea Poon on 07-14-2022 Neutrophil cytoplasmic Ab.classic Qn (S) <1:20 titer Neg:<1:20 [facility] Serum or plasma C reactive p rotein measurement (mass/volume)Ordered By: Rea Poon on 07-14-2022 CRP [Mass/Vol] mg/L 0.0-3.0 [facility] Serum or plasma albumin mg urement (mass/volume)Ordered By: Rea Poon on 07-14-2022 Albumin [Mass/Vol] 3.7 g/dL 3.2-5.0 [facility] Serum or plasma albumin/glob ulin mass ratioOrdered By: Rea Poon on 07-14-2022 Albumin/Globulin [Mass ratio] 1.1 {ratio} 0.9-2.4 [facility] Serum or plasma calcium mg urement (mass/volume)Ordered By: Rea Poon on 07-14-2022 Calcium [Mass/Vol] 9.2 mg/dL 8.5-10.1 [facility] Serum or plasma creatinine m easurement (mass/volume)Ordered By: Rea Poon on 07-14-2022 Creatinine [Mass/Vol] 0.83 mg/dL 0.55-1.02 [facility] Serum or plasma urea nitroge n measurement (mass/volume)Ordered By: Rea Poon on 07-14-2022 Urea nitrogen [Mass/Vol] 6 mg/dL 7-18 [facility] Serum perinuclear neutrophil cytoplasmic antibody titer by immunofluorescenceOrdered By: Rea Poon on 07-14-2022 Neutrophil cytoplasmic Ab.perinuclear IF (S) [Titer] <1:20 titer Neg:<1:20 [facility] Serum tissue transglutaminas e IgA antibody assay (units/volume)Ordered By: Rea Poon on 07-14-2022 tTG IgA Qn (S) <2 U/mL 0-3 [facility] Thin prep Papanicolaou smear with manual screeningOrdered By: Rea Poon on 07-14-2022 Thin prep Papanicolaou smear with manual screening 15 U/L 15-37 [facility] Thin prep Papanicolaou smear with manual screening 5 5-15 [facility] BASIC METABOLIC PANELon 06-22 Anion gap [Moles/Vol] 11 mmol/L Normal 10 - 20 [facility] Comment on above: Performed By: #### B MP #### [place] [address] Calcium [Mass/Vol] 9.1 mg/dL Normal 8.6 - 10.3 [facility] Comment on above: Performed By: #### B MP #### [address] [address] Chloride [Moles/Vol] 103 mmol/L Normal 98 - 107 [facility] Comment on above: Performed By: #### B MP #### [address] [address] Creatinine [Mass/Vol] 0.72 mg/dL Normal 0.50 - 1.[address] [facility] Comment on above: Performed By: #### B MP #### [address] [address] eGFR FEMALE >90 Normal >90 [facility] Comment on above: Result Comment: CALC ULATIONS OF ESTIMATED GFR ARE PERFORMED USING THE 2020 CKD-EPI STUDY REFIT EQUATION WITHOUT THE RACE VARIABLE FOR THE IDMS-TRACEABLE CREATININE METHODS. https://jasn.asnjournals.org/content/early//ASN.2020 986952 Performed By: #### B MP #### [address] [address] Glucose [Mass/Vol] 137 mg/dL High 74 - 99 [facility] Comment on above: Performed By: #### B MP #### [address] [address] HCO3 (Bld) [Moles/Vol] 26 mmol/L Normal 21 - [address] [facility] Comment on above: Performed By: #### B MP #### [address] [address] Potassium [Moles/Vol] 3.9 mmol/L Normal 3.5 - 5.3 [facility] Comment on above: Performed By: #### B MP #### [address] [address] Sodium [Moles/Vol] 136 mmol/L Normal 136 - 145 [facility] Comment on above: Performed By: #### B MP #### [address] [address] Urea nitrogen [Mass/Vol] 13 mg/dL Normal 6 - 23 [facility] Comment on above: Performed By: #### B MP #### [address] [address] CBC AND DIFFERENTIALon 07-05 % AUTOMATED IMMATURE GRAN 0.5 % Normal 0.0 - 0.9 [facility] Comment on above: Result Comment: Lyssa ture Granulocyte Count (IG) includes promyelocytes, myelocytes and metamyelocytes but does not include bands. Percent differential counts (%) should be interpreted in the context of the absolute cell counts (cells/L). Performed By: #### C BCDF #### [address] [address] Basophils (Bld) [#/Vol] 0.02 10*3/uL Normal 0.00 - 0.1 0 [facility] Comment on above: Performed By: #### C BCDF #### [address] [address] Basophils/100 WBC (Bld) 0.3 % Normal 0.0 - 2.0 [facility] Comment on above: Performed By: #### C BCDF #### [address] [address] Eosinophils (Bld) [#/Vol] 0.01 10*3/uL Normal 0.00 - 0.70 [facility] Comment on above: Performed By: #### C BCDF #### [address] [address] Eosinophils/100 WBC (Bld) 0.2 % Normal 0.0 - 6.0 [facility] Comment on above: Performed By: #### C BCDF #### [address] [address] Erythrocyte distribution width (RBC) [Ratio] 14.4 % Normal 11.5 - 14.5 [facility] Comment on above: Performed By: #### C BCDF #### [address] [address] Hematocrit (Bld) [Volume fraction] 41.8 % Normal 36.0 - 46.0 [facility] Comment on above: Performed By: #### C BCDF #### [address] [address] Hemoglobin (Bld) [Mass/Vol] 13.6 g/dL Normal 12.0 - 16.0 [facility] Comment on above: Performed By: #### C BCDF #### [address] [address] Lymphocytes (Bld) [#/Vol] 0.91 10*3/uL Low 1.20 - 4.80 [facility] Comment on above: Performed By: #### C BCDF #### [address] [address] Lymphocytes/100 WBC (Bld) 14.2 % Normal 13.0 - 44.0 [facility] Comment on above: Performed By: #### C BCDF #### [address] [address] MCHC (RBC) [Mass/Vol] 32.5 g/dL Normal 32.0 - 36.[address] [facility] Comment on above: Performed By: #### C BCDF #### [address] [address] MCV (RBC) [Entitic vol] 84 fL Normal 80 - 100 [facility] Comment on above: Performed By: #### C BCDF #### [address] [address] Monocytes (Bld) [#/Vol] 0.28 10*3/uL Normal 0.10 - 1.0 0 [facility] Comment on above: Performed By: #### C BCDF #### [address] [address] Monocytes/100 WBC (Bld) 4.4 % Normal 2.0 - 10.0 [facility] Comment on above: Performed By: #### C BCDF #### [address] [address] Neutrophils (Bld) [#/Vol] 5.17 10*3/uL Normal 1.20 - 7.70 [facility] Comment on above: Result Comment: Perc ent differential counts (%) should be interpreted in the context of the absolute cell counts (cells/L). Performed By: #### C BCDF #### [address] [address] Neutrophils/100 WBC (Bld) 80.4 % Normal 40.0 - 80.0 [facility] Comment on above: Performed By: #### C BCDF #### [address] [address] Platelets (Bld) [#/Vol] 212 10*3/uL Normal 150 - 450 [facility] Comment on above: Performed By: #### C BCDF #### [address] [address] RBC 5.00 x10E12/L Normal 4.00 - 5.20 [facility] Comment on above: Performed By: #### C BCDF #### [address] [address] WBC (Bld) [#/Vol] 6.4 10*3/uL Normal 4.4 - 11.3 [facility] Comment on above: Performed By: #### C BCDF #### [address] [address] HEPATIC FUNCTION PANELon Albumin [Mass/Vol] 4.5 g/dL Normal 3.4 - 5.0 [facility] Comment on above: Performed By: #### H EPFP #### [address] [address] ALP [Catalytic activity/Vol] 61 U/L Normal 33 - 110 [facility] Comment on above: Performed By: #### H EPFP #### [address] [address] ALT [Catalytic activity/Vol] 13 U/L Normal 7 - 45 [facility] Comment on above: Result Comment: Kamilla ents treated with Sulfasalazine may generate falsely decreased results for ALT. Performed By: #### H EPFP #### [address] [address] AST [Catalytic activity/Vol] 11 U/L Normal 9 - 39 [facility] Comment on above: Performed By: #### H EPFP #### [address] [address] Bilirubin [Mass/Vol] 0.3 mg/dL Normal 0.0 - 1.2 [facility] Comment on above: Performed By: #### H EPFP #### [address] [address] Bilirubin.indirect [Mass/Vol] 0.1 mg/dL Normal 0.0 - 0.3 [facility] Comment on above: Performed By: #### H EPFP #### [address] [address] Protein [Mass/Vol] 7.2 g/dL Normal 6.4 - 8.2 [facility] Comment on above: Performed By: #### H EPFP #### [address] [address] LACTATEon 07-05-2022 Lactate [Moles/Vol] 1.2 mmol/L Normal 0.4 - 2.0 [facility] Comment on above: Result Comment: Sandra puncture immediately after or during the administration of Metamizole may lead to falsely low results. Testing should be performed immediately prior to Metamizole dosing. Performed By: #### L ACT #### [address] [address] LIPASEon 07-05-2022 Lipase [Catalytic activity/Vol] 15 U/L Normal 9 - 82 [facility] Comment on above: Result Comment: Sandra puncture immediately after or during the administration of Metamizole may lead to falsely low results. Testing should be performed immediately prior to Metamizole dosing. N-yjtcmj-s-benzoquinone imine (metabolite of Acetaminophen) will generate erroneously low results in samples for patients that have taken toxic doses of acetaminophen. Performed By: #### L IPAS #### [address] [address] Provider Note - ED v3on 06-22 Provider [...] following those procedures. They were done at [place]. Patient gets most of her medical care at [facility]. States she was in the area here [...] Alert and oriented x4, GCS 15 , pilot highway patrol II-XII grossly intact. Sensation and motor function of extremities grossly intact. Psych: Appropriate mood and affect. I have reviewed and confirmed nurses/medics notes for patient past, social and family history. Portions of this note were dictated by speech recognition. An attempt at proof reading was made to minimize errors. Minor errors in door frame assembler machine may be present. HISTORY OF PRESENTING ILLNESS LANA is a 37 year old Female and was seen by me at 04-Jul-2022 22:12 for a chief complaint of abdominal pain (pt c/o right mid abdominal pain that started a few hours METAL BUMPER. 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 Triage [...] Reference Range: STRAW,YELLOW Appearance, Urine CLEAR Specific Ida, Urine 1.012 pH, Urine 6.0 Protein, Urine [...] SIGNS: T PRBP SpO2O2(LPM) %FiO2 Method 04-Jul-2022 23:00:[id number] 95 room air, no respiratory support 04-Jul-2022 22:35:[id number]/79 96 room air, no respiratory support 04-Jul-2022 22:09:[id number]/79 98 room air, no respiratory support 04-Jul-2022 22:05:[id number]/79 98 room air, no respiratory support [facility] MDM/ED COURSE: Patient is nontoxic appearing. I did review on the [employer] network. She had a CT abdomen pelvis on June 10. She had an ultrasound of the pelvis also at [place] on June 22 and another ultrasound at [facility] the next day on the second. I also reviewed the [place]AR[place] report which is somewhat extensive. Reassessment patient resting comfortab (more content not included)... Normal [facility] Risk Screen - Adult Emergenc n 07-05-2022 Risk Screen - Adult Emergency Preferred [...] material; verbal instruction Cultural Considerationsnone Developmental Considerationsnone Jewish Considerationsnone Learning Assessment (Other Learner): Learning Assessment (Other Learner): Other learner availableyes... Learnerspouse Factors Influencing Readiness to Learnacuteness of illness Factors that Impact Ability to Learnnone Devices/Methods Used to Communicatenone Learning Preferencesverbal instruction, written material Cultural Considerationsnone Developmental Considerationsnone Jewish Considerationsnone Pressure Injury/TB/Substance: Pressure Injury: Do you [...] an injured patient at a Tra[place] Center [place] [place]/Mobile): no Electronic Signatures: Cristiana Golden (RN) (Signed 04-Jul-2022 22:13) Authored: Preferred Language, Patient Preferred Pharmacy, Advanced Directives, Family Violence Adult, Learning Assessment (Patient), Learning Assessment (Other Learner), Pressure Injury/TB/Substance, Pressure Injury, CAGE Last Updated: 04-Jul-2022 22:13 by Cristiana Golden (RN) [facility] Triage - EDon 07-05-2022 Triage - ED Quick Triage: Are You no Have You Given In The Last 6 Weeksno Are You Currently Breastfeedingno Chart Review: ARRIVAL INFORMATION Mode of Arrival: private vehicle CHIEF COMPLAINT LANA RIVERA is a Female patient with a chief complaint of abdominal pain (pt c/o right mid abdominal pain that started a few hours METAL BUMPER. 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 Triage [...] BMI (kg/m2): 36.312 Calculated BSA (m2) 2.18 [place] Coma Scale: Best Eye Response: (E4) spontaneous Best Motor Response: (M6) obeys commands Best Verbal Response: (V5) oriented Guero Score: 15 [employer] History: hysterectomy Patient has homicidal thoughts: no [...] Last Updated: 04-Jul-2022 22:12 by Cristiana Golden (RN) Normal [facility] URINALYSIS WITH CULTURE IF I NDICATEDon 07-05-2022 Appearance (U) CLEAR Normal CLEAR [facility] Comment on above: Performed By: #### U ARFX #### [address] [address] Bilirubin Ql (U) Negative Normal NEGATIVE [facility] Comment on above: Performed By: #### U ARFX #### [address] [address] Color (U) Straw Normal STRAW,YELLOW [facility] Comment on above: Performed By: #### U ARFX #### [address] [address] Glucose Ql (U) Negative Normal NEGATIVE [facility] Comment on above: Performed By: #### U ARFX #### [address] [address] Hemoglobin Ql (U) Negative Normal NEGATIVE [facility] Comment on above: Performed By: #### U ARFX #### [place] [address] Ketones Ql (U) Negative Normal NEGATIVE [facility] Comment on above: Performed By: #### U ARFX #### [address] [address] Leukocyte esterase Test strip Ql (U) Negative Normal NEGATIVE [facility] Comment on above: Performed By: #### U ARFX #### [place] [address] Nitrite Ql (U) Negative Normal NEGATIVE [facility] Comment on above: Performed By: #### U ARFX #### [place] [address] pH (U) 6.0 [pH] Normal 5.0 - 8.0 [facility] Comment on above: Performed By: #### U ARFX #### [place] [address] Protein Ql (U) Negative Normal NEGATIVE [facility] Comment on above: Performed By: #### U ARFX #### [place] [address] Specific gravity (U) [Rel density] 1.012 Normal 1.005 - 1.035 [facility] Comment on above: Performed By: #### U ARFX #### [place] [id number] Urobilinogen (U) [Mass/Vol] mg/dL Normal 0.0 - 1.9 [facility] Comment on above: Performed By: #### U ARFX #### [place] [id number] No Panel Informationon 06-29 Negative [facility] Negative [facility] US PELVIC TRANSABDOMINAL AND TRANSVAGINAL WITH COLOR [...] MonJun 23, 2022 10:43:29 PM EST Normal [facility] Comment on above: Order Comment: Injur y/Trauma or Illness?:Illness/Other How long have you had these symptoms (acute/chronic)?:Acute Reason for exam?:r/o ovarian torsion History of cancer?:unknown Surgeries, chemotherapy, or radiation?:unknown Type of Exam?:Initial Additional signs and symptoms?:none Absolute lymphocyte countOrd ered By: Dr. Jacobs on 06-10-2022 Lymphocytes Auto (Unsp spec) [#/Vol] 0.96 10*3/uL 0.83-4.51 [facility] Basophil percentageOrdered B y: Dr. Jacobs on 06-10-2022 Basophil percentage 108 mg/dL 74-106 [facility] Basophil percentage 139 mmol/L 136-145 [facility] Basophil percentage 3.9 mmol/L 3.5-5.1 [facility] Basophil percentage 106 mmol/L 98-107 [facility] Basophils (Bld) [#/Vol] 3.6 10*3/uL 4.4-11.0 [facility] Basophils (Bld) [#/Vol] 2.1 10*3/uL 2.0-7.7 [facility] Basophils/100 WBC (Bld) 56.4 % 47-70 [facility] Basophils/100 WBC (Bld) 8.0 % 0-5 [facility] Basophils/100 WBC (Bld) 0.6 % 0-1 [facility] Blood erythrocytes count (nu mber/volume)Ordered By: Dr. Jacobs on 06-10-2022 RBC (Bld) [#/Vol] 4.73 10*6/uL 4.2-5.4 [facility] Blood hemoglobin measurement (mass/volume)Ordered By: Dr. Jacobs on 06-10-2022 Hemoglobin (Bld) [Mass/Vol] 12.9 g/dL 12.0-15.0 [facility] Blood lymphocytes/100 leukoc ytesOrdered By: Dr. Jacobs on 06-10-2022 Lymphocytes/100 WBC (Bld) 26.4 % 19-41 [facility] Blood monocytes/100 leukocyt esOrdered By: Dr. Jacobs on 06-10-2022 Monocytes/100 WBC (Bld) 8.3 % 0-10 [facility] Blood platelet mean volumeOr dered By: Dr. Jacobs on 06-10-2022 Platelet mean volume (Bld) [Entitic vol] 10.8 fL 6.2-12.0 [facility] Determination of erythrocyte mean corpuscular volume (MCV)Ordered By: Dr. Jacobs on 06-10-2022 MCV (RBC) [Entitic vol] 85.4 fL 81-99 [facility] Hematocrit Auto (Bld) [Volum e fraction]Ordered By: Dr. Jacobs on 06-10-2022 Hematocrit (Bld) [Volume fraction] 40.4 % 37-47 [facility] MCHC Auto (RBC) [Mass/Vol]Or dered By: Dr. Jacobs on 06-10-2022 MCHC (RBC) [Mass/Vol] 31.9 g/dL 32-36 [facility] No Panel InformationOrdered By: Dr. Jacobs on 06-10-2022 27.3 pg 27.0-32.0 [facility] 14.9 % 11.6-14.6 [facility] 46.7 fl 35.1-43.9 [facility] 0.300 % 0.0-0.9 [facility] 0 % 0-5 [facility] 107 mL/min >60 [facility] 129 mL/min >60 [facility] 109.71 ml/min [facility] 9.0 RATIO 10-20 [facility] 26.0 mmol/L 21.0-32.0 [facility] Platelets bldOrdered By: Dr. Jacobs on 06-10-2022 Platelets (Bld) [#/Vol] 166 10*3/uL 150-450 [facility] Serum or plasma calcium mg urement (mass/volume)Ordered By: Dr. Jacobs on 06-10-2022 Calcium [Mass/Vol] 8.3 mg/dL 8.5-10.1 [facility] Serum or plasma creatinine m easurement (mass/volume)Ordered By: Dr. Jacobs on 06-10-2022 Creatinine [Mass/Vol] 0.67 mg/dL 0.55-1.02 [facility] Serum or plasma urea nitroge n measurement (mass/volume)Ordered By: Dr. Jacobs on 06-10-2022 Urea nitrogen [Mass/Vol] 6 mg/dL 7-18 [facility] Thin prep Papanicolaou smear with manual screeningOrdered By: Dr. Jacobs on 06-10-2022 Thin prep Papanicolaou smear with manual screening 7 5-15 [facility] No Panel InformationOrdered By: Grace Cho on 05-30-2022 2.1 mg/dL 1.6-2.6 [facility] 1.56 uIU/mL 0.358-3.74 [facility] 17.6 ng/mL [facility] Absolute lymphocyte countOrd ered By: ED PROVIDER on 05-23-2022 Lymphocytes Auto (Unsp spec) [#/Vol] 1.87 10*3/uL 0.83-4.51 [facility] Basophil percentageOrdered B y: Dr. Barajas on 05-23-2022 Basophil percentage 0 SEEN /hpf 0-5 [facility] Basophil percentage 108 mg/dL 74-106 [facility] Basophil percentage 139 mmol/L 136-145 [facility] Basophil percentage 3.7 mmol/L 3.5-5.1 [facility] Basophil percentage 107 mmol/L 98-107 [facility] Basophil percentageOrdered B y: ED PROVIDER on 05-23-2022 Basophils (Bld) [#/Vol] 4.9 10*3/uL 4.4-11.0 [facility] Basophils (Bld) [#/Vol] 2.3 10*3/uL 2.0-7.7 [facility] Basophils/100 WBC (Bld) 0.6 % 0-1 [facility] Basophils/100 WBC (Bld) 46.4 % 47-70 [facility] Basophils/100 WBC (Bld) 4.5 % 0-5 [facility] Basophil percentageon 2022 Chloride [Moles/Vol] 107 mmol/L 98-107 [facility] Work Phone: Eosinophils/100 WBC (Bld) 4.5 % 0-5 [facility] Work Phone: Glucose [Mass/Vol] 108 mg/dL 74-106 [facility] Work Phone: Comment on above: Fasting Glucose resu lt from 100 to 125 mg/dL suggests IMPAIRED HOMEOSTASIS per A.D.A. criteria. Neutrophils (Bld) [#/Vol] 2.3 10*3/uL 2.0-7.7 [facility] Work Phone: Neutrophils/100 WBC (Bld) 46.4 % 47-70 [facility] Work Phone: Potassium [Moles/Vol] 3.7 mmol/L 3.5-5.1 [facility] Work Phone: Sodium [Moles/Vol] 139 mmol/L 136-145 [facility] Work Phone: WBC (Bld) [#/Vol] 4.9 10*3/uL 4.4-11.0 [facility] Work Phone: Bilirubin Test strip Ql (U)O rdered By: Dr. Barajas on 05-23-2022 Bilirubin Ql (U) Negative Negative [facility] Blood erythrocytes count (nu mber/volume)Ordered By: ED PROVIDER on 05-23-2022 RBC (Bld) [#/Vol] 4.62 10*6/uL 4.2-5.4 [facility] Blood hemoglobin measurement (mass/volume)Ordered By: ED PROVIDER on 05-23-2022 Hemoglobin (Bld) [Mass/Vol] 12.9 g/dL 12.0-15.0 [facility] Blood lymphocytes/100 leukoc ytesOrdered By: ED PROVIDER on 05-23-2022 Lymphocytes/100 WBC (Bld) 38.4 % 19-41 [facility] Blood monocytes/100 leukocyt esOrdered By: ED PROVIDER on 05-23-2022 Monocytes/100 WBC (Bld) 9.9 % 0-10 [facility] Blood platelet mean volumeOr dered By: ED PROVIDER on 05-23-2022 Platelet mean volume (Bld) [Entitic vol] 10.8 fL 6.2-12.0 [facility] Determination of erythrocyte mean corpuscular volume (MCV)Ordered By: ED PROVIDER on 05-23-2022 MCV (RBC) [Entitic vol] 85.7 fL 81-99 [facility] Hematocrit Auto (Bld) [Volum e fraction]Ordered By: ED PROVIDER on 05-23-2022 Hematocrit (Bld) [Volume fraction] 39.6 % 37-47 [facility] Ketones Test strip Ql (U)Ord ered By: Dr. Barajas on 05-23-2022 Ketones Ql (U) Negative Negative [facility] Laboratory - Chemistry and C hemistry - challengeon 05-23-2022 CO2 [Moles/Vol] 28.0 mmol/L 21.0-32.0 [facility] Work Phone: Urea nitrogen/Creatinine [Mass ratio] 14.6 mg/mg 10-20 [facility] Work Phone: Laboratory - Hematology and Cell countson 05-23-2022 Erythrocyte distribution width (RBC) [Entitic vol] 49.7 fL 35.1-43.9 [facility] Work Phone: Erythrocyte distribution width (RBC) [Ratio] 15.9 % 11.6-14.6 [facility] Work Phone: Immature granulocytes/100 WBC (Bld) 0.200 % 0.0-0.9 [facility] Work Phone: Comment on above: IG% - Immature Granu locytes (promyelocytes, myelocytes and metamyelocytes) > 1% indicates that a LEFT SHIFT is Present. MCH (RBC) [Entitic mass] 27.9 pg 27.0-32.0 [facility] Work Phone: Nucleated RBC/100 WBC (Bld) [Ratio] 0 % 0-5 [facility] Work Phone: [phone] MCHC Auto (RBC) [Mass/Vol]Or dered By: ED PROVIDER on 05-23-2022 MCHC (RBC) [Mass/Vol] 32.6 g/dL 32-36 [facility] Mucus LM Ql (Urine sed)Order ed By: Dr. Barajas on 05-23-2022 Mucus Ql (Urine sed) 0 SEEN /hpf [facility] Nitrite Test strip Ql (U)Ord ered By: Dr. Barajas on 05-23-2022 Nitrite Ql (U) Negative Negative [facility] No Panel Informationon 05-23 Estimated Creatinine Clearance Calc 108.10 ml/min [facility] Work Phone: Estimated GFR (MDRD) Amer 126 mL/min >60 [facility] Work Phone: Comment on above: GFR Calc Estimated GFR (MDRD) Non-Af Amer 104 mL/min >60 [facility] Work Phone: Comment on above: Non- GFR Calc No Panel InformationOrdered By: ED PROVIDER on 05-23-2022 27.9 pg 27.0-32.0 [facility] 15.9 % 11.6-14.6 [facility] [facility] 49.7 fl 35.1-43.9 [facility] 0.200 % 0.0-0.9 [facility] 0 % 0-5 [facility] No Panel InformationOrdered By: Dr. Barajas on 05-23-2022 104 mL/min >60 [facility] 126 mL/min >60 [facility] 108.10 ml/min [facility] 14.6 RATIO 10-20 [facility] 28.0 mmol/L 21.0-32.0 [facility] Platelets bldOrdered By: ED PROVIDER on 05-23-2022 Platelets (Bld) [#/Vol] 191 10*3/uL 150-450 [facility] Protein Test strip Ql (U)Ord ered By: Dr. Barajas on 05-23-2022 Protein Ql (U) 15 mg/dl Negative [facility] Serum or plasma calcium mg urement (mass/volume)Ordered By: Dr. Barajas on 05-23-2022 Calcium [Mass/Vol] 9.2 mg/dL 8.5-10.1 [facility] Serum or plasma creatinine m easurement (mass/volume)Ordered By: Dr. Barajas on 05-23-2022 Creatinine [Mass/Vol] 0.68 mg/dL 0.55-1.02 [facility] Comment on above: The validity of the calculated GFR & GFRAA in patients over 70 years has not been determined. Clinical correlation is essential. Serum or plasma urea nitroge n measurement (mass/volume)Ordered By: Dr. Barajas on 05-23-2022 Urea nitrogen [Mass/Vol] 10 mg/dL 7-18 [facility] Squamous epithelial cells de tection in urine sediment by light microscopyOrdered By: Dr. Barajas on 05-23-2022 Epithelial cells.squamous LM Ql (Urine sed) 5-10 SEEN /hpf 5-10 [facility] Thin prep Papanicolaou smear with manual screeningOrdered By: Dr. Barajas on 05-23-2022 Thin prep Papanicolaou smear with manual screening 4 5-15 [facility] Urine blood detectionOrdered By: Dr. Barajas on 05-23-2022 RBC Ql (U) Negative Negative [facility] RBC Ql (U) 0 SEEN /hpf 0-5 [facility] Urine clarityOrdered By: Dr. Barajas on 05-23-2022 Clarity (U) Sl. Cloudy Clear [facility] Urine color determinationOrd ered By: Dr. Barajas on 05-23-2022 Color (U) Yellow Yellow [facility] Urine glucose detectionOrder ed By: Dr. Barajas on 05-23-2022 Glucose Ql (U) Normal mg/dl Normal [facility] Urine leukocyte esterase det ection by dipstickOrdered By: Dr. Barajas on 05-23-2022 Leukocyte esterase Test strip Ql (U) Negative Negative [facility] Urine pHOrdered By: Dr. Nancy orantes on 05-23-2022 pH (U) 6.0 [pH] 5.0 - 8.0 [facility] Urine sediment bacteria coun t by microscopy (number/high power field)Ordered By: Dr. Barajas on 05-23-2022 Bacteria LM.HPF (Urine sed) [#/Area] RARE /hpf None Seen [facility] Urine specific gravity measu rementOrdered By: Dr. Barajas on 05-23-2022 Specific gravity (U) [Rel density] 1.025 1.002-1.030 [facility] Urobilinogen Auto test strip Ql (U)Ordered By: Dr. Barajas on 05-23-2022 Urobilinogen Ql (U) Normal mg/dl Normal [facility] Bacteria identified Anaer cx Nom (Unsp spec)Ordered By: Dr. Myrick on 04-19-2022 Anaerobic culture Prevotella bivia [facility] Anaerobic culture Prevotella melaninogenica [facility] Anaerobic culture Anaerobic cocci [facility] Bacteria identified Cx Nom ( Wound)Ordered By: Dr. Myrick on 04-18-2022 Routine wound culture Enterococcus faecalis [facility] No Panel InformationOrdered By: Dr. Aguila on 04-18-2022 No growth in 5 days. [facility] Basophil percentageOrdered B y: Dr. Myrick on 04-16-2022 Basophils (Bld) [#/Vol] 6.0 10*3/uL 4.4-11.0 [facility] Basophil percentageon 2021 WBC (Bld) [#/Vol] 6.0 10*3/uL 4.4-11.0 [facility] Work Phone: Blood erythrocytes count (nu mber/volume)Ordered By: Dr. Myrick on 04-16-2022 RBC (Bld) [#/Vol] 3.88 10*6/uL 4.2-5.4 [facility] Blood hemoglobin measurement (mass/volume)Ordered By: Dr. Myrick on 04-16-2022 Hemoglobin (Bld) [Mass/Vol] 10.4 g/dL 12.0-15.0 [facility] Blood platelet mean volumeOr dered By: Dr. Myrick on 04-16-2022 Platelet mean volume (Bld) [Entitic vol] 10.2 fL 6.2-12.0 [facility] Determination of erythrocyte mean corpuscular volume (MCV)Ordered By: Dr. Myrick on 04-16-2022 MCV (RBC) [Entitic vol] 84.8 fL 81-99 [facility] Hematocrit Auto (Bld) [Volum e fraction]Ordered By: Dr. Myrick on 04-16-2022 Hematocrit (Bld) [Volume fraction] 32.9 % 37-47 [facility] Laboratory - Hematology and Cell countson 04-16-2022 Erythrocyte distribution width (RBC) [Entitic vol] 38.4 fL 35.1-43.9 [facility] Work Phone: Erythrocyte distribution width (RBC) [Ratio] 12.5 % 11.6-14.6 [facility] Work Phone: MCH (RBC) [Entitic mass] 26.8 pg 27.0-32.0 [facility] Work Phone: MCHC Auto (RBC) [Mass/Vol]Or dered By: Dr. Myrick on 04-16-2022 MCHC (RBC) [Mass/Vol] 31.6 g/dL 32-36 [facility] No Panel InformationOrdered By: Dr. Myrick on 04-16-2022 26.8 pg 27.0-32.0 [facility] 12.5 % 11.6-14.6 [facility] 38.4 fl 35.1-43.9 [facility] Platelets bldOrdered By: Dr. Myrick on 04-16-2022 Platelets (Bld) [#/Vol] 205 10*3/uL 150-450 [facility] Glucose Glucometer (BldC) [M ass/Vol]Ordered By: Dr. Moore on 04-15-2022 Glucose [Mass/Vol] 146 mg/dL 74-106 [facility] Comment on above: MANAGEMENT OF PATIEN T CARE PER NURSING PROTOCOL Gram stain for investigation of transfusion reactionOrdered By: Dr. Myrick on 04-15-2022 Microscopic observation Gram stain Nom (Unsp spec) [facility] No Panel Informationon 04-15 Thyroid Stimulating Hormone (TSH) 4.08 uIU/mL 0.358-3.74 [facility] Work Phone: No Panel InformationOrdered By: Dr. Garcia on 04-15-2022 4.08 uIU/mL 0.358-3.74 [facility] Whole blood hemoglobin A1c/t otal hemoglobin ratio (mass fraction)Ordered By: Dr. Garcia on 04-15-2022 HbA1c (Bld) [Mass fraction] 5.6 % 3.8-5.6 [facility] Comment on above: Normal < 5.7 % Predi abetic 5.7 - 6.4 % Diabetic >or= 6.5 % Please note range changes. Absolute lymphocyte countOrd ered By: Dr. Moore on 04-14-2022 Lymphocytes Auto (Unsp spec) [#/Vol] 1.36 10*3/uL 0.83-4.51 [facility] Basophil percentageOrdered B y: Dr. Myrick on 04-14-2022 Basophil percentage 122 mg/dL 74-106 [facility] Basophil percentage 7.5 g/dL 6.4-8.2 [facility] Basophil percentage 0.40 mg/dL 0.20-1.00 [facility] Basophil percentage 135 mmol/L 136-145 [facility] Basophil percentage 3.6 mmol/L 3.5-5.1 [facility] Basophil percentage 100 mmol/L 98-107 [facility] Basophil percentageOrdered B y: Dr. Moore on 04-14-2022 Basophils (Bld) [#/Vol] 5.8 10*3/uL 2.0-7.7 [facility] Basophils/100 WBC (Bld) 0.4 % 0-1 [facility] Basophils/100 WBC (Bld) 69.4 % 47-70 [facility] Basophils/100 WBC (Bld) 2.3 % 0-5 [facility] Basophil percentageon 2021 Bilirubin [Mass/Vol] 0.40 mg/dL 0.20-1.00 [facility] Work Phone: Comment on above: For patients on eltr ombopag therapy, use of Dimension [place] TBIL is not recommended. Chloride [Moles/Vol] 100 mmol/L 98-107 [facility] Work Phone: Eosinophils/100 WBC (Bld) 2.3 % 0-5 [facility] Work Phone: Glucose [Mass/Vol] 122 mg/dL 74-106 [facility] Work Phone: [phone] Comment on above: Fasting Glucose resu lt from 100 to 125 mg/dL suggests IMPAIRED HOMEOSTASIS per A.D.A. criteria. Neutrophils (Bld) [#/Vol] 5.8 10*3/uL 2.0-7.7 [facility] Work Phone: Neutrophils/100 WBC (Bld) 69.4 % 47-70 [facility] Work Phone: [phone] Potassium [Moles/Vol] 3.6 mmol/L 3.5-5.1 [facility] Work Phone: Protein [Mass/Vol] 7.5 g/dL 6.4-8.2 [facility] Work Phone: Sodium [Moles/Vol] 135 mmol/L 136-145 [facility] Work Phone: Blood lymphocytes/100 leukoc ytesOrdered By: Dr. Moore on 04-14-2022 Lymphocytes/100 WBC (Bld) 16.2 % 19-41 [facility] Blood monocytes/100 leukocyt esOrdered By: [address] Moore on 04-14-2022 Monocytes/100 WBC (Bld) 11.5 % 0-10 [facility] Laboratory - Chemistry and C hemistry - challengeon 04-14-2022 ALP [Catalytic activity/Vol] 77 U/L 45-117 [facility] Work Phone: [phone] ALT [Catalytic activity/Vol] 16 U/L 13-56 [facility] Work Phone: [phone] CO2 [Moles/Vol] 26.0 mmol/L 21.0-32.0 [facility] Work Phone: [phone] Globulin (S) [Mass/Vol] 4.3 g/dL 2.2-4.2 [facility] Work Phone: [phone] Urea nitrogen/Creatinine [Mass ratio] 10.6 mg/mg - [facility] Work Phone: [phone] Laboratory - Hematology and Cell countson 04-14-2022 Immature granulocytes/100 WBC (Bld) 0.200 % 0.0-0.9 [facility] Work Phone: Comment on above: IG% - Immature Granu locytes (promyelocytes, myelocytes and metamyelocytes) > 1% indicates that a LEFT SHIFT is Present. Nucleated RBC/100 WBC (Bld) [Ratio] 0 % 0-5 [facility] Work Phone: No Panel Informationon 04-14 Estimated Creatinine Clearance Calc 95.11 ml/min [facility] Work Phone: Estimated GFR (MDRD) Amer 113 mL/min >60 [facility] Work Phone: [phone] Comment on above: GFR Calc Estimated GFR (MDRD) Non-Af Amer 93 mL/min >60 [facility] Work Phone: Comment on above: Non- GFR Calc No Panel InformationOrdered By: Dr. Moore on 04-14-2022 0.200 % 0.0-0.9 [facility] 0 % 0-5 [facility] No Panel InformationOrdered By: Dr. Myrick on 04-14-2022 93 mL/min >60 [facility] 113 mL/min >60 [facility] 95.11 ml/min [facility] 10.6 RATIO -20 [facility] 4.3 g/dL 2.2-4.2 [facility] 77 U/L 45-117 [facility] 16 U/L 13-56 [facility] 26.0 mmol/L 21.0-32.0 [facility] Serum or plasma albumin mg urement (mass/volume)Ordered By: Dr. Myrick on 04-14-2022 Albumin [Mass/Vol] 3.2 g/dL 3.2-5.0 [facility] Serum or plasma albumin/glob ulin mass ratioOrdered By: Dr. Myrick on 04-14-2022 Albumin/Globulin [Mass ratio] 0.7 {ratio} 0.9-2.4 [facility] Serum or plasma calcium mg urement (mass/volume)Ordered By: Dr. Myrick on 04-14-2022 Calcium [Mass/Vol] 9.1 mg/dL 8.5-10.1 [facility] Serum or plasma creatinine m easurement (mass/volume)Ordered By: Dr. Myrick on 04-14-2022 Creatinine [Mass/Vol] 0.75 mg/dL 0.55-1.02 [facility] Comment on above: The validity of the calculated GFR & GFRAA in patients over 70 years has not been determined. Clinical correlation is essential. Serum or plasma urea nitroge n measurement (mass/volume)Ordered By: Dr. Myrick on 04-14-2022 Urea nitrogen [Mass/Vol] 8 mg/dL 7-18 [facility] Thin prep Papanicolaou smear with manual screeningOrdered By: Dr. Myrick on 04-14-2022 Thin prep Papanicolaou smear with manual screening 8 U/L 15-37 [facility] Thin prep Papanicolaou smear with manual screening 9 5-15 [facility] INR in Blood by Coagulation assayOrdered By: Dr. Moore on 04-13-2022 INR Coag (Bld) [Relative time] 1.2 {INR} [facility] Laboratory - Coagulationon 1 06-13-2021 PT Coag (PPP) [Time] 14.4 s 11.7-14.9 [facility] Work Phone: No Panel InformationOrdered By: Dr. Moore on 04-13-2022 14.4 SECONDS 11.7-14.9 [facility] Absolute lymphocyte counton 04-12-2022 Lymphocytes Auto (Unsp spec) [#/Vol] 0.96 10*3/uL 0.83-4.51 [facility] Work Phone: Basophil percentageOrdered B y: Dr. Aguila on 04-12-2022 Basophil percentage 0 SEEN /hpf 0-5 [facility] Basophil percentage 1.6 mmol/L 0.4-2.0 [facility] Basophil percentageon 2021 Basophils/100 WBC (Bld) 0.4 % 0-1 [facility] Work Phone: Chloride [Moles/Vol] 102 mmol/L 98-107 [facility] Work Phone: Eosinophils/100 WBC (Bld) 0.8 % 0-5 [facility] Work Phone: Glucose [Mass/Vol] 109 mg/dL 74-106 [facility] Work Phone: Comment on above: Fasting Glucose resu lt from 100 to 125 mg/dL suggests IMPAIRED HOMEOSTASIS per A.D.A. criteria. Lactate [Moles/Vol] 1.6 mmol/L 0.4-2.0 [facility] Work Phone: Neutrophils (Bld) [#/Vol] 6.4 10*3/uL 2.0-7.7 [facility] Work Phone: Neutrophils/100 WBC (Bld) 76.7 % 47-70 [facility] Work Phone: Potassium [Moles/Vol] 3.3 mmol/L 3.5-5.1 [facility] Work Phone: Sodium [Moles/Vol] 137 mmol/L 136-145 [facility] Work Phone: WBC (Bld) [#/Vol] 8.3 10*3/uL 4.4-11.0 [facility] Work Phone: Bilirubin Test strip Ql (U)O rdered By: Dr. Aguila on 04-12-2022 Bilirubin Ql (U) Negative Negative [facility] Blood erythrocytes count (nu mber/volume)on 04-12-2022 RBC (Bld) [#/Vol] 4.40 10*6/uL 4.2-5.4 [facility] Work Phone: Blood hemoglobin measurement (mass/volume)on 04-12-2022 Hemoglobin (Bld) [Mass/Vol] 11.9 g/dL 12.0-15.0 [facility] Work Phone: Blood lymphocytes/100 leukoc yteson 04-12-2022 Lymphocytes/100 WBC (Bld) 11.6 % 19-41 [facility] Work Phone: Blood monocytes/100 leukocyt eson 04-12-2022 Monocytes/100 WBC (Bld) 10.3 % 0-10 [facility] Work Phone: Blood platelet mean volumeon 04-12-2022 Platelet mean volume (Bld) [Entitic vol] 10.4 fL 6.2-12.0 [facility] Work Phone: Determination of erythrocyte mean corpuscular volume (MCV)on 04-12-2022 MCV (RBC) [Entitic vol] 82.3 fL 81-99 [facility] Work Phone: Hematocrit Auto (Bld) [Volum e fraction]on 04-12-2022 Hematocrit (Bld) [Volume fraction] 36.2 % 37-47 [facility] Work Phone: Influenza virus A and B and SARS-CoV-2 (COVID-19) Ag panel - Upper respiratory specimOrdered By: Dr. Aguila on 04-12-2022 SARS-CoV-2 (COVID-19) RNA JONE+probe Ql (Resp) [facility] Ketones Test strip Ql (U)Ord ered By: Dr. Aguila on 04-12-2022 Ketones Ql (U) Negative Negative [facility] Laboratory - Chemistry and C hemistry - challengeon 04-12-2022 CO2 [Moles/Vol] 28.0 mmol/L 21.0-32.0 [facility] Work Phone: Urea nitrogen/Creatinine [Mass ratio] 7.1 mg/mg 10-20 [facility] Work Phone: Laboratory - Hematology and Cell countson 04-12-2022 Erythrocyte distribution width (RBC) [Entitic vol] 37.9 fL 35.1-43.9 [facility] Work Phone: Erythrocyte distribution width (RBC) [Ratio] 12.4 % 11.6-14.6 [facility] Work Phone: Immature granulocytes/100 WBC (Bld) 0.200 % 0.0-0.9 [facility] Work Phone: Comment on above: IG% - Immature Granu locytes (promyelocytes, myelocytes and metamyelocytes) > 1% indicates that a LEFT SHIFT is Present. MCH (RBC) [Entitic mass] 27.0 pg 27.0-32.0 [facility] Work Phone: Nucleated RBC/100 WBC (Bld) [Ratio] 0 % 0-5 [facility] Work Phone: MCHC Auto (RBC) [Mass/Vol]on 04-12-2022 MCHC (RBC) [Mass/Vol] 32.9 g/dL 32-36 [facility] Work Phone: Mucus LM Ql (Urine sed)Order ed By: Dr. Aguila on 04-12-2022 Mucus Ql (Urine sed) 0 SEEN /hpf [facility] Nitrite Test strip Ql (U)Ord ered By: Dr. Aguila on 04-12-2022 Nitrite Ql (U) Negative Negative [facility] No Panel Informationon 04-12 D-Dimer Quantitative (PE/DVT) 1.56 FEU/ug/m 0.27-0.49 [facility] Work Phone: Comment on above: D-Dimer ELEVATED [...] (PE) Estimated Creatinine Clearance Calc 101.90 ml/min [facility] Work Phone: Estimated GFR (MDRD) Amer 122 mL/min >60 [facility] Work Phone: Comment on above: GFR Calc Estimated GFR (MDRD) Non-Af Amer 101 mL/min >60 [facility] Work Phone: Comment on above: Non- GFR Calc No Panel InformationOrdered By: Dr. Aguila on 04-12-2022 1.56 FEU/ug/m 0.27-0.49 [facility] Platelets bldon 04-12-2022 Platelets (Bld) [#/Vol] 255 10*3/uL 150-450 [facility] Work Phone: [phone] Protein Test strip Ql (U)Ord ered By: Dr. Aguila on 04-12-2022 Protein Ql (U) Negative Negative [facility] Serum or plasma calcium mg urement (mass/volume)on 04-12-2022 Calcium [Mass/Vol] 9.0 mg/dL 8.5-10.1 [facility] Work Phone: [phone] Serum or plasma creatinine m easurement (mass/volume)on 04-12-2022 Creatinine [Mass/Vol] 0.70 mg/dL 0.55-1.02 [facility] Work Phone: [phone] Comment on above: The validity of the calculated GFR & GFRAA in patients over 70 years has not been determined. Clinical correlation is essential. Serum or plasma urea nitroge n measurement (mass/volume)on 04-12-2022 Urea nitrogen [Mass/Vol] 5 mg/dL 7-18 [facility] Work Phone: Squamous epithelial cells de tection in urine sediment by light microscopyOrdered By: Dr. Aguila on 04-12-2022 Epithelial cells.squamous LM Ql (Urine sed) 0-5 SEEN /hpf 5-10 [facility] Thin prep Papanicolaou smear with manual screeningon 04-12-2022 Thin prep Papanicolaou smear with manual screening 7 5-15 [facility] Work Phone: Urine blood detectionOrdered By: Dr. Aguila on 04-12-2022 RBC Ql (U) Negative Negative [facility] RBC Ql (U) 0 SEEN /hpf 0-5 [facility] Urine clarityOrdered By: Dr. Aguila on 04-12-2022 Clarity (U) Clear Clear [facility] Urine color determinationOrd ered By: Dr. Aguila on 04-12-2022 Color (U) Yellow Yellow [facility] Urine glucose detectionOrder ed By: Dr. Aguila on 04-12-2022 Glucose Ql (U) Normal mg/dl Normal [facility] Urine leukocyte esterase det ection by dipstickOrdered By: Dr. Aguila on 04-12-2022 Leukocyte esterase Test strip Ql (U) 25 /ul Negative [facility] Urine pHOrdered By: Dr. Presley baxter on 04-12-2022 pH (U) 6.5 [pH] 5.0 - 8.0 [facility] Urine sediment bacteria coun t by microscopy (number/high power field)Ordered By: Dr. Aguila on 04-12-2022 Bacteria LM.HPF (Urine sed) [#/Area] 0 /[HPF] None Seen [facility] Urine specific gravity measu rementOrdered By: Dr. Aguila on 04-12-2022 Specific gravity (U) [Rel density] 1.010 1.002-1.030 [facility] Urobilinogen Auto test strip Ql (U)Ordered By: Dr. Aguila on 04-12-2022 Urobilinogen Ql (U) Normal mg/dl Normal [facility] Bacteria identified Cx Nom ( U)Ordered By: Dr. Myrick on 03-31-2022 Culture, urine Mixed Gram Pos & Gra m Neg Org [facility] Absolute lymphocyte countOrd ered By: Dr. Kulkarni on 03-30-2022 Lymphocytes Auto (Unsp spec) [#/Vol] 1.50 10*3/uL 0.83-4.51 [facility] Basophil percentageOrdered B y: Dr. Kulkarni on 03-30-2022 Basophil percentage 102 mg/dL 74-106 [facility] Basophil percentage 7.3 g/dL 6.4-8.2 [facility] Basophil percentage 0.40 mg/dL 0.20-1.00 [facility] Basophil percentage 137 mmol/L 136-145 [facility] Basophil percentage 3.8 mmol/L 3.5-5.1 [facility] Basophil percentage 105 mmol/L 98-107 [facility] Basophils (Bld) [#/Vol] 6.5 10*3/uL 4.4-11.0 [facility] Basophils (Bld) [#/Vol] 4.2 10*3/uL 2.0-7.7 [facility] Basophils/100 WBC (Bld) 0.3 % 0-1 [facility] Basophils/100 WBC (Bld) 64.8 % 47-70 [facility] Basophils/100 WBC (Bld) 4.0 % 0-5 [facility] Basophil percentageon 2021 Bilirubin [Mass/Vol] 0.40 mg/dL 0.20-1.00 [facility] Work Phone: Comment on above: For patients on eltr ombopag therapy, use of Dimension [place] TBIL is not recommended. Chloride [Moles/Vol] 105 mmol/L 98-107 [facility] Work Phone: Eosinophils/100 WBC (Bld) 4.0 % 0-5 [facility] Work Phone: Glucose [Mass/Vol] 102 mg/dL 74-106 [facility] Work Phone: Comment on above: Fasting Glucose resu lt from 100 to 125 mg/dL suggests IMPAIRED HOMEOSTASIS per A.D.A. criteria. Neutrophils (Bld) [#/Vol] 4.2 10*3/uL 2.0-7.7 [facility] Work Phone: Neutrophils/100 WBC (Bld) 64.8 % 47-70 [facility] Work Phone: Potassium [Moles/Vol] 3.8 mmol/L 3.5-5.1 [facility] Work Phone: Protein [Mass/Vol] 7.3 g/dL 6.4-8.2 [facility] Work Phone: Sodium [Moles/Vol] 137 mmol/L 136-145 [facility] Work Phone: WBC (Bld) [#/Vol] 6.5 10*3/uL 4.4-11.0 [facility] Work Phone: [phone] Blood erythrocytes count (nu mber/volume)Ordered By: Dr. Kulkarni on 03-30-2022 RBC (Bld) [#/Vol] 4.60 10*6/uL 4.2-5.4 [facility] Blood hemoglobin measurement (mass/volume)Ordered By: Dr. Kulkarni on 03-30-2022 Hemoglobin (Bld) [Mass/Vol] 13.0 g/dL 12.0-15.0 [facility] Blood lymphocytes/100 leukoc ytesOrdered By: Dr. Kulkarni on 03-30-2022 Lymphocytes/100 WBC (Bld) 23.1 % 19-41 [facility] Blood monocytes/100 leukocyt esOrdered By: Dr. Kulkarni on 03-30-2022 Monocytes/100 WBC (Bld) 7.5 % 0-10 [facility] Blood platelet mean volumeOr dered By: Dr. Kulkarni on 03-30-2022 Platelet mean volume (Bld) [Entitic vol] 10.5 fL 6.2-12.0 [facility] Determination of erythrocyte mean corpuscular volume (MCV)Ordered By: Dr. Kulkarni on 03-30-2022 MCV (RBC) [Entitic vol] 84.6 fL 81-99 [facility] Hematocrit Auto (Bld) [Volum e fraction]Ordered By: Dr. Kulkarni on 03-30-2022 Hematocrit (Bld) [Volume fraction] 38.9 % 37-47 [facility] Laboratory - Chemistry and C hemistry - challengeon 03-30-2022 ALP [Catalytic activity/Vol] 69 U/L 45-117 [facility] Work Phone: ALT [Catalytic activity/Vol] 31 U/L 13-56 [facility] Work Phone: CO2 [Moles/Vol] 27.0 mmol/L 21.0-32.0 [facility] Work Phone: Globulin (S) [Mass/Vol] 3.7 g/dL 2.2-4.2 [facility] Work Phone: Urea nitrogen/Creatinine [Mass ratio] 12.7 mg/mg 10-20 [facility] Work Phone: Bilirubin Ql (U) Negative [facility] Work Phone: Glucose Ql (U) Negative [facility] Work Phone: Ketones Ql (U) Negative [facility] Work Phone: pH (U) 6.5 [pH] [facility] Work Phone: Specific gravity (U) [Rel density] 1.025 [facility] Work Phone: Urobilinogen (U) [Mass/Vol] 0.5625381 mg/dL [facility] Work Phone: Laboratory - Hematology and Cell countson 03-30-2022 Erythrocyte distribution width (RBC) [Entitic vol] 37.9 fL 35.1-43.9 [facility] Work Phone: Erythrocyte distribution width (RBC) [Ratio] 12.5 % 11.6-14.6 [facility] Work Phone: Immature granulocytes/100 WBC (Bld) 0.300 % 0.0-0.9 [facility] Work Phone: Comment on above: IG% - Immature Granu locytes (promyelocytes, myelocytes and metamyelocytes) > 1% indicates that a LEFT SHIFT is Present. MCH (RBC) [Entitic mass] 28.3 pg 27.0-32.0 [facility] Work Phone: Nucleated RBC/100 WBC (Bld) [Ratio] 0 % 0-5 [facility] Work Phone: Hemoglobin Ql (U) Negative [facility] Work Phone: Laboratory - Specimen inform ationon 03-30-2022 Clarity (U) Clear [facility] Work Phone: Color (U) Yellow [facility] Work Phone: Laboratory - Urinalysison Nitrite Ql (U) Negative [facility] Work Phone: Protein Ql (U) Negative [facility] Work Phone: MCHC Auto (RBC) [Mass/Vol]Or dered By: Dr. Kulkarni on 03-30-2022 MCHC (RBC) [Mass/Vol] 33.4 g/dL 32-36 [facility] No Panel Informationon 03-30 Estimated Creatinine Clearance Calc 104.52 ml/min [facility] Work Phone: Estimated GFR (MDRD) Amer 121 mL/min >60 [facility] Work Phone: Comment on above: GFR Calc Estimated GFR (MDRD) Non-Af Amer 100 mL/min >60 [facility] Work Phone: Comment on above: Non- GFR Calc [facility] Yellow [facility] Clear [facility] Negative [facility] 1.025 [facility] 6.5 [facility] 0.2 mg/dL [facility] Negve [facility] No Panel InformationOrdered By: Dr. Kulkarni on 03-30-2022 28.3 pg 27.0-32.0 [facility] 12.5 % 11.6-14.6 [facility] 37.9 fl 35.1-43.9 [facility] 0.300 % 0.0-0.9 [facility] 0 % 0-5 [facility] 100 mL/min >60 [facility] 121 mL/min >60 [facility] 104.52 ml/min [facility] 12.7 RATIO 10-20 [facility] 3.7 g/dL 2.2-4.2 [facility] 69 U/L 45-117 [facility] 31 U/L 13-56 [facility] 27.0 mmol/L 21.0-32.0 [facility] Platelets bldOrdered By: Dr. Kulkarni on 03-30-2022 Platelets (Bld) [#/Vol] 243 10*3/uL 150-450 [facility] Serum or plasma albumin mg urement (mass/volume)Ordered By: Dr. Kulkarni on 03-30-2022 Albumin [Mass/Vol] 3.6 g/dL 3.2-5.0 [facility] Serum or plasma albumin/glob ulin mass ratioOrdered By: Dr. Kulkarni on 03-30-2022 Albumin/Globulin [Mass ratio] 1.0 {ratio} 0.9-2.4 [facility] Serum or plasma calcium mg urement (mass/volume)Ordered By: Dr. Kulkarni on 03-30-2022 Calcium [Mass/Vol] 9.1 mg/dL 8.5-10.1 [facility] Serum or plasma creatinine m easurement (mass/volume)Ordered By: Dr. Kulkarni on 03-30-2022 Creatinine [Mass/Vol] 0.71 mg/dL 0.55-1.02 [facility] Comment on above: The validity of the calculated GFR & GFRAA in patients over 70 years has not been determined. Clinical correlation is essential. Serum or plasma urea nitroge n measurement (mass/volume)Ordered By: Dr. Kulkarni on 03-30-2022 Urea nitrogen [Mass/Vol] 9 mg/dL 7-18 [facility] Thin prep Papanicolaou smear with manual screeningOrdered By: Dr. Kulkarni on 03-30-2022 Thin prep Papanicolaou smear with manual screening 17 U/L 15-37 [facility] Thin prep Papanicolaou smear with manual screening 5 5-15 [facility] Basophil percentageOrdered B y: Dr. Moore on 03-23-2022 Basophils (Bld) [#/Vol] 9.1 10*3/uL 4.4-11.0 [facility] Basophil percentageon 2021 WBC (Bld) [#/Vol] 9.1 10*3/uL 4.4-11.0 [facility] Work Phone: Blood erythrocytes count (nu mber/volume)Ordered By: Dr. Moore on 03-23-2022 RBC (Bld) [#/Vol] 4.74 10*6/uL 4.2-5.4 [facility] Blood hemoglobin measurement (mass/volume)Ordered By: Dr. Moore on 03-23-2022 Hemoglobin (Bld) [Mass/Vol] 13.4 g/dL 12.0-15.0 [facility] Blood platelet mean volumeOr dered By: Dr. Moore on 03-23-2022 Platelet mean volume (Bld) [Entitic vol] 10.6 fL 6.2-12.0 [facility] Determination of erythrocyte mean corpuscular volume (MCV)Ordered By: Dr. Moore on 03-23-2022 MCV (RBC) [Entitic vol] 84.8 fL 81-99 [facility] Glucose Glucometer (BldC) [M ass/Vol]Ordered By: Dr. Moore on 03-23-2022 Glucose [Mass/Vol] 142 mg/dL 74-106 [facility] Comment on above: MANAGEMENT OF PATIEN T CARE PER NURSING PROTOCOL Hematocrit Auto (Bld) [Volum e fraction]Ordered By: Dr. Moore on 03-23-2022 Hematocrit (Bld) [Volume fraction] 40.2 % 37-47 [facility] Laboratory - Hematology and Cell countson 03-23-2022 Erythrocyte distribution width (RBC) [Entitic vol] 38.3 fL 35.1-43.9 [facility] Work Phone: Erythrocyte distribution width (RBC) [Ratio] 12.4 % 11.6-14.6 [facility] Work Phone: MCH (RBC) [Entitic mass] 28.3 pg 27.0-32.0 [facility] Work Phone: MCHC Auto (RBC) [Mass/Vol]Or dered By: Dr. Moore on 03-23-2022 MCHC (RBC) [Mass/Vol] 33.3 g/dL 32-36 [facility] No Panel InformationOrdered By: Dr. Moore on 03-23-2022 28.3 pg 27.0-32.0 [facility] 12.4 % 11.6-14.6 [facility] 38.3 fl 35.1-43.9 [facility] Platelets bldOrdered By: Dr. Moore on 03-23-2022 Platelets (Bld) [#/Vol] 172 10*3/uL 150-450 [facility] Absolute lymphocyte countOrd ered By: Dr. Moore on 03-22-2022 Lymphocytes Auto (Unsp spec) [#/Vol] 0.61 10*3/uL 0.83-4.51 [facility] Basophil percentageOrdered B y: Dr. Moore on 03-22-2022 Basophils (Bld) [#/Vol] 10.2 10*3/uL 2.0-7.7 [facility] Basophils/100 WBC (Bld) 0.1 % 0-1 [facility] Basophils/100 WBC (Bld) 89.1 % 47-70 [facility] Basophils/100 WBC (Bld) 0.0 % 0-5 [facility] Basophil percentageon 2021 Eosinophils/100 WBC (Bld) 0.0 % 0-5 [facility] Work Phone: Neutrophils (Bld) [#/Vol] 10.2 10*3/uL 2.0-7.7 [facility] Work Phone: Neutrophils/100 WBC (Bld) 89.1 % 47-70 [facility] Work Phone: Blood lymphocytes/100 leukoc ytesOrdered By: Dr. Moore on 03-22-2022 Lymphocytes/100 WBC (Bld) 5.3 % 19-41 [facility] Blood monocytes/100 leukocyt esOrdered By: Dr. Moore on 03-22-2022 Monocytes/100 WBC (Bld) 5.1 % 0-10 [facility] Laboratory - Chemistry and C hemistry - challengeon 03-22-2022 HCG ( test) Ql (U) Negative [facility] Work Phone: Comment on above: Very dilute urine sp ecimens, as indicated by a low specificgravity, may not contain quality control representative levels of hCG. If is still suspected, a first morning urinespecimen should be collected 48 hours later and tested. Laboratory - Hematology and Cell countson 03-22-2022 Immature granulocytes/100 WBC (Bld) 0.400 % 0.0-0.9 [facility] Work Phone: Comment on above: IG% - Immature Granu locytes (promyelocytes, myelocytes and metamyelocytes) > 1% indicates that a LEFT SHIFT is Present. Nucleated RBC/100 WBC (Bld) [Ratio] 0 % 0-5 [facility] Work Phone: No Panel InformationOrdered By: Dr. Moore on 03-22-2022 0.400 % 0.0-0.9 [facility] 0 % 0-5 [facility] No Panel InformationOrdered By: Dr. Curry on 03-22-2022 Negative [facility] Absolute lymphocyte countOrd ered By: Dr. Melgar on 03-04-2022 Lymphocytes Auto (Unsp spec) [#/Vol] 1.33 10*3/uL 0.83-4.51 [facility] Basophil percentageOrdered B y: Dr. Melgar on 03-04-2022 Basophil percentage 87 mg/dL 74-106 [facility] Basophil percentage 139 mmol/L 136-145 [facility] Basophil percentage 4.0 mmol/L 3.5-5.1 [facility] Basophil percentage 107 mmol/L 98-107 [facility] Basophils (Bld) [#/Vol] 5.5 10*3/uL 4.4-11.0 [facility] Basophils (Bld) [#/Vol] 3.4 10*3/uL 2.0-7.7 [facility] Basophils/100 WBC (Bld) 0.5 % 0-1 [facility] Basophils/100 WBC (Bld) 61.9 % 47-70 [facility] Basophils/100 WBC (Bld) 3.5 % 0-5 [facility] Basophil percentageon 2021 Chloride [Moles/Vol] 107 mmol/L 98-107 [facility] Work Phone: Eosinophils/100 WBC (Bld) 3.5 % 0-5 [facility] Work Phone: Glucose [Mass/Vol] 87 mg/dL 74-106 [facility] Work Phone: Neutrophils (Bld) [#/Vol] 3.4 10*3/uL 2.0-7.7 [facility] Work Phone: Neutrophils/100 WBC (Bld) 61.9 % 47-70 [facility] Work Phone: Potassium [Moles/Vol] 4.0 mmol/L 3.5-5.1 [facility] Work Phone: Sodium [Moles/Vol] 139 mmol/L 136-145 [facility] Work Phone: WBC (Bld) [#/Vol] 5.5 10*3/uL 4.4-11.0 [facility] Work Phone: Blood erythrocytes count (nu mber/volume)Ordered By: Dr. Melgar on 03-04-2022 RBC (Bld) [#/Vol] 5.22 10*6/uL 4.2-5.4 [facility] Blood hemoglobin measurement (mass/volume)Ordered By: Dr. Melgar on 03-04-2022 Hemoglobin (Bld) [Mass/Vol] 15.2 g/dL 12.0-15.0 [facility] Blood lymphocytes/100 leukoc ytesOrdered By: Dr. Melgar on 03-04-2022 Lymphocytes/100 WBC (Bld) 24.4 % 19-41 [facility] Blood monocytes/100 leukocyt esOrdered By: Dr. Melgar on 03-04-2022 Monocytes/100 WBC (Bld) 9.5 % 0-10 [facility] Blood platelet mean volumeOr dered By: Dr. Melgar on 03-04-2022 Platelet mean volume (Bld) [Entitic vol] 11.1 fL 6.2-12.0 [facility] Determination of erythrocyte mean corpuscular volume (MCV)Ordered By: Dr. Melgar on 03-04-2022 MCV (RBC) [Entitic vol] 87.0 fL 81-99 [facility] Hematocrit Auto (Bld) [Volum e fraction]Ordered By: Dr. Melgar on 03-04-2022 Hematocrit (Bld) [Volume fraction] 45.4 % 37-47 [facility] Laboratory - Chemistry and C hemistry - challengeon 03-04-2022 CO2 [Moles/Vol] 27.0 mmol/L 21.0-32.0 [facility] Work Phone: Urea nitrogen/Creatinine [Mass ratio] 12.2 mg/mg 10-20 [facility] Work Phone: Laboratory - Hematology and Cell countson 03-04-2022 Erythrocyte distribution width (RBC) [Entitic vol] 39.7 fL 35.1-43.9 [facility] Work Phone: Erythrocyte distribution width (RBC) [Ratio] 12.5 % 11.6-14.6 [facility] Work Phone: Immature granulocytes/100 WBC (Bld) 0.200 % 0.0-0.9 [facility] Work Phone: Comment on above: IG% - Immature Granu locytes (promyelocytes, myelocytes and metamyelocytes) > 1% indicates that a LEFT SHIFT is Present. MCH (RBC) [Entitic mass] 29.1 pg 27.0-32.0 [facility] Work Phone: Nucleated RBC/100 WBC (Bld) [Ratio] 0 % 0-5 [facility] Work Phone: MCHC Auto (RBC) [Mass/Vol]Or dered By: Dr. Melgar on 03-04-2022 MCHC (RBC) [Mass/Vol] 33.5 g/dL 32-36 [facility] No Panel Informationon 03-04 Estimated Creatinine Clearance Calc 86.99 ml/min [facility] Work Phone: Estimated GFR (MDRD) Amer 102 mL/min >60 [facility] Work Phone: Comment on above: GFR Calc Estimated GFR (MDRD) Non-Af Amer 84 mL/min >60 [facility] Work Phone: Comment on above: Non- GFR Calc No Panel InformationOrdered By: Dr. Melgar on 03-04-2022 29.1 pg 27.0-32.0 [facility] 12.5 % 11.6-14.6 [facility] 39.7 fl 35.1-43.9 [facility] 0.200 % 0.0-0.9 [facility] 0 % 0-5 [facility] 84 mL/min >60 [facility] 102 mL/min >60 [facility] 86.99 ml/min [facility] 12.2 RATIO 10-20 [facility] 27.0 mmol/L 21.0-32.0 [facility] Platelets bldOrdered By: Dr. Melgar on 03-04-2022 Platelets (Bld) [#/Vol] 182 10*3/uL 150-450 [facility] Serum or plasma calcium mg urement (mass/volume)Ordered By: Dr. Melgar on 03-04-2022 Calcium [Mass/Vol] 9.1 mg/dL 8.5-10.1 [facility] Serum or plasma creatinine m easurement (mass/volume)Ordered By: Dr. Melgar on 03-04-2022 Creatinine [Mass/Vol] 0.82 mg/dL 0.55-1.02 [facility] Comment on above: The validity of the calculated GFR & GFRAA in patients over 70 years has not been determined. Clinical correlation is essential. Serum or plasma urea nitroge n measurement (mass/volume)Ordered By: Dr. Melgar on 03-04-2022 Urea nitrogen [Mass/Vol] 10 mg/dL 7-18 [facility] Thin prep Papanicolaou smear with manual screeningOrdered By: Dr. Melgar on 03-04-2022 Thin prep Papanicolaou smear with manual screening 5 5-15 [facility] Laboratory - Chemistry and C hemistry - challengeon 03-02-2022 Magnesium [Mass/Vol] 1.8 mg/dL 1.6-2.6 [facility] Work Phone: No Panel InformationOrdered By: Dr. Garcia on 03-02-2022 1.8 mg/dL 1.6-2.6 [facility] Bacteria identified Cx Nom ( U)Ordered By: Dr. Moore on 02-16-2022 Culture, urine Positive [facility] Absolute lymphocyte countOrd ered By: Dr. Moore on 02-15-2022 Lymphocytes Auto (Unsp spec) [#/Vol] 1.31 10*3/uL 0.83-4.51 [facility] Basophil percentageOrdered B y: Dr. Guzman on 02-15-2022 Basophil percentage 0-5 SEEN /hpf 0-5 [facility] Basophil percentageOrdered B y: Dr. Moore on 02-15-2022 Basophil percentage 101 mg/dL 74-106 [facility] Basophil percentage 7.3 g/dL 6.4-8.2 [facility] Basophil percentage 0.40 mg/dL 0.20-1.00 [facility] Basophil percentage 140 mmol/L 136-145 [facility] Basophil percentage 4.2 mmol/L 3.5-5.1 [facility] Basophil percentage 108 mmol/L 98-107 [facility] Basophils (Bld) [#/Vol] 4.7 10*3/uL 4.4-11.0 [facility] Basophils (Bld) [#/Vol] 2.7 10*3/uL 2.0-7.7 [facility] Basophils/100 WBC (Bld) 0.6 % 0-1 [facility] Basophils/100 WBC (Bld) 57.4 % 47-70 [facility] Basophils/100 WBC (Bld) 3.6 % 0-5 [facility] Basophil percentageon 2021 Bilirubin [Mass/Vol] 0.40 mg/dL 0.20-1.00 [facility] Work Phone: Comment on above: For patients on eltr ombopag therapy, use of Dimension [place] TBIL is not recommended. Chloride [Moles/Vol] 108 mmol/L 98-107 [facility] Work Phone: Eosinophils/100 WBC (Bld) 3.6 % 0-5 [facility] Work Phone: Glucose [Mass/Vol] 101 mg/dL 74-106 [facility] Work Phone: [phone] Comment on above: Fasting Glucose resu lt from 100 to 125 mg/dL suggests IMPAIRED HOMEOSTASIS per A.D.A. criteria. Neutrophils (Bld) [#/Vol] 2.7 10*3/uL 2.0-7.7 [facility] Work Phone: [phone] Neutrophils/100 WBC (Bld) 57.4 % 47-70 [facility] Work Phone: [phone] Potassium [Moles/Vol] 4.2 mmol/L 3.5-5.1 [facility] Work Phone: [phone] Protein [Mass/Vol] 7.3 g/dL 6.4-8.2 [facility] Work Phone: Sodium [Moles/Vol] 140 mmol/L 136-145 [facility] Work Phone: WBC (Bld) [#/Vol] 4.7 10*3/uL 4.4-11.0 [facility] Work Phone: Bilirubin Test strip Ql (U)O rdered By: Dr. Guzman on 02-15-2022 Bilirubin Ql (U) Negative Negative [facility] Blood erythrocytes count (nu mber/volume)Ordered By: Dr. Moore on 02-15-2022 RBC (Bld) [#/Vol] 4.94 10*6/uL 4.2-5.4 [facility] Blood hemoglobin measurement (mass/volume)Ordered By: Dr. Moore on 02-15-2022 Hemoglobin (Bld) [Mass/Vol] 13.9 g/dL 12.0-15.0 [facility] Blood lymphocytes/100 leukoc ytesOrdered By: Dr. Moore on 02-15-2022 Lymphocytes/100 WBC (Bld) 28.1 % 19-41 [facility] Blood monocytes/100 leukocyt esOrdered By: Dr. Moore on 02-15-2022 Monocytes/100 WBC (Bld) 10.1 % 0-10 [facility] Blood platelet mean volumeOr dered By: Dr. Moore on 02-15-2022 Platelet mean volume (Bld) [Entitic vol] 11.0 fL 6.2-12.0 [facility] Determination of erythrocyte mean corpuscular volume (MCV)Ordered By: Dr. Moore on 02-15-2022 MCV (RBC) [Entitic vol] 87.4 fL 81-99 [facility] Hematocrit Auto (Bld) [Volum e fraction]Ordered By: Dr. Moore on 02-15-2022 Hematocrit (Bld) [Volume fraction] 43.2 % 37-47 [facility] Ketones Test strip Ql (U)Ord ered By: Dr. Guzman on 02-15-2022 Ketones Ql (U) Negative Negative [facility] Laboratory - Chemistry and C hemistry - challengeon 02-15-2022 HCG ( test) Ql (U) Negative [facility] Work Phone: Comment on above: Very dilute urine sp ecimens, as indicated by a low specificgravity, may not contain quality control representative levels of hCG. If is still suspected, a first morning urinespecimen should be collected 48 hours later and tested. ALP [Catalytic activity/Vol] 62 U/L 45-117 [facility] Work Phone: ALT [Catalytic activity/Vol] 21 U/L 13-56 [facility] Work Phone: CO2 [Moles/Vol] 29.0 mmol/L 21.0-32.0 [facility] Work Phone: Globulin (S) [Mass/Vol] 3.5 g/dL 2.2-4.2 [facility] Work Phone: Urea nitrogen/Creatinine [Mass ratio] 10.7 mg/mg 10-20 [facility] Work Phone: Laboratory - Hematology and Cell countson 02-15-2022 Erythrocyte distribution width (RBC) [Entitic vol] 40.2 fL 35.1-43.9 [facility] Work Phone: Erythrocyte distribution width (RBC) [Ratio] 12.6 % 11.6-14.6 [facility] Work Phone: Immature granulocytes/100 WBC (Bld) 0.200 % 0.0-0.9 [facility] Work Phone: Comment on above: IG% - Immature Granu locytes (promyelocytes, myelocytes and metamyelocytes) > 1% indicates that a LEFT SHIFT is Present. MCH (RBC) [Entitic mass] 28.1 pg 27.0-32.0 [facility] Work Phone: Nucleated RBC/100 WBC (Bld) [Ratio] 0 % 0-5 [facility] Work Phone: MCHC Auto (RBC) [Mass/Vol]Or dered By: Dr. Moore on 02-15-2022 MCHC (RBC) [Mass/Vol] 32.2 g/dL 32-36 [facility] Mucus LM Ql (Urine sed)Order ed By: Dr. Guzman on 02-15-2022 Mucus Ql (Urine sed) 0 SEEN /hpf [facility] Nitrite Test strip Ql (U)Ord ered By: Dr. Guzman on 02-15-2022 Nitrite Ql (U) Negative Negative [facility] No Panel InformationOrdered By: Dr. Guzman on 02-15-2022 Negative [facility] No Panel Informationon 02-15 Estimated GFR (MDRD) Amer 114 mL/min >60 [facility] Work Phone: Comment on above: GFR Calc Estimated GFR (MDRD) Non-Af Amer 94 mL/min >60 [facility] Work Phone: Comment on above: Non- GFR Calc Thyroid Stimulating Hormone (TSH) 0.62 uIU/mL 0.358-3.74 [facility] Work Phone: No Panel InformationOrdered By: Dr. Moore on 02-15-2022 28.1 pg 27.0-32.0 [facility] 12.6 % 11.6-14.6 [facility] 40.2 fl 35.1-43.9 [facility] 0.200 % 0.0-0.9 [facility] 0 % 0-5 [facility] 94 mL/min >60 [facility] 114 mL/min >60 [facility] 10.7 RATIO 10-20 [facility] 3.5 g/dL 2.2-4.2 [facility] 62 U/L 45-117 [facility] 21 U/L 13-56 [facility] 29.0 mmol/L 21.0-32.0 [facility] 0.62 uIU/mL 0.358-3.74 [facility] Platelets bldOrdered By: Dr. Moore on 02-15-2022 Platelets (Bld) [#/Vol] 175 10*3/uL 150-450 [facility] Protein Test strip Ql (U)Ord ered By: Dr. Guzman on 02-15-2022 Protein Ql (U) Negative Negative [facility] Serum or plasma albumin mg urement (mass/volume)Ordered By: Dr. Moore on 02-15-2022 Albumin [Mass/Vol] 3.8 g/dL 3.2-5.0 [facility] Serum or plasma albumin/glob ulin mass ratioOrdered By: Dr. Moore on 02-15-2022 Albumin/Globulin [Mass ratio] 1.1 {ratio} 0.9-2.4 [facility] Serum or plasma calcium mg urement (mass/volume)Ordered By: Dr. Moore on 02-15-2022 Calcium [Mass/Vol] 9.1 mg/dL 8.5-10.1 [facility] Serum or plasma creatinine m easurement (mass/volume)Ordered By: Dr. Moore on 02-15-2022 Creatinine [Mass/Vol] 0.75 mg/dL 0.55-1.02 [facility] Comment on above: The validity of the calculated GFR & GFRAA in patients over 70 years has not been determined. Clinical correlation is essential. Serum or plasma urea nitroge n measurement (mass/volume)Ordered By: Dr. Moore on 02-15-2022 Urea nitrogen [Mass/Vol] 8 mg/dL 7-18 [facility] Squamous epithelial cells de tection in urine sediment by light microscopyOrdered By: Dr. Guzman on 02-15-2022 Epithelial cells.squamous LM Ql (Urine sed) 5-10 SEEN /hpf 5-10 [facility] Thin prep Papanicolaou smear with manual screeningOrdered By: Dr. Moore on 02-15-2022 Thin prep Papanicolaou smear with manual screening 11 U/L 15-37 [facility] Thin prep Papanicolaou smear with manual screening 3 5-15 [facility] Urine blood detectionOrdered By: Dr. Guzman on 02-15-2022 RBC Ql (U) Negative Negative [facility] RBC Ql (U) 0 SEEN /hpf 0-5 [facility] Urine clarityOrdered By: Dr. Guzman on 02-15-2022 Clarity (U) Sl. Cloudy Clear [facility] Urine color determinationOrd ered By: Dr. Guzman on 02-15-2022 Color (U) Yellow Yellow [facility] Urine glucose detectionOrder ed By: Dr. Guzman on 02-15-2022 Glucose Ql (U) Normal mg/dl Normal [facility] Urine leukocyte esterase det ection by dipstickOrdered By: Dr. Guzman on 02-15-2022 Leukocyte esterase Test strip Ql (U) 25 /ul Negative [facility] Urine pHOrdered By: Dr. Guzman o n 02-15-2022 pH (U) 6.0 [pH] 5.0 - 8.0 [facility] Urine sediment bacteria coun t by microscopy (number/high power field)Ordered By: Dr. Guzman on 02-15-2022 Bacteria LM.HPF (Urine sed) [#/Area] 1 /[HPF] None Seen [facility] Urine specific gravity measu rementOrdered By: Dr. Guzman on 02-15-2022 Specific gravity (U) [Rel density] 1.015 1.002-1.030 [facility] Urobilinogen Auto test strip Ql (U)Ordered By: Dr. Guzman on 02-15-2022 Urobilinogen Ql (U) Normal mg/dl Normal [facility] Whole blood hemoglobin A1c/t otal hemoglobin ratio (mass fraction)Ordered By: Dr. Moore on 02-15-2022 HbA1c (Bld) [Mass fraction] 5.5 % 3.8-5.6 [facility] Comment on above: Normal < 5.7 % Predi abetic 5.7 - 6.4 % Diabetic >or= 6.5 % Please note range changes. Atypical perinuclear antineu trophil cytoplasmic antibodies measurementon 01-13-2022 Neutrophil cytoplasmic Ab.perinuclear.atypical IF (S) [Titer] <1:20 titer Neg:<1:20 [facility] Work Phone: Comment on above: The atypical pANCA p attern has been observed in asignificant percentage of patients with ulcerative colitis,primary sclerosing cholangitis and autoimmune hepatitis. Basophil percentageon 2021 Ammonia (P) [Moles/Vol] 15.0 umol/L 11-32 [facility] Work Phone: Basophil percentage < 0.2 AI 0.0-0.9 [facility] Work Phone: Cholesterol [Mass/Vol] 220 mg/dL <200 [facility] Work Phone: Comment on above: <200 mg/dL Desirable 200-240 mg/dL Borderline >240 mg/dL High Risk Triglyceride [Mass/Vol] 175 mg/dL <199 [facility] Work Phone: Comment on above: The drugs N-Acetylcy steine and Metamizole may falsely depress this assay.Serum Triglycerides Reference Interval Normal <150 mg/dL Borderline high 150 - 199 mg/dL High 200 - 499 mg/dL Very High > or = 500 mg/dL Erythrocyte sedimentation ra funmi 01-13-2022 ESR (Bld) [Velocity] 6 mm/h 0-30 [facility] Work Phone: [phone] HIV 1 and HIV-2 antibody ass ay with HIV-1 p24 antigen detectionon 01-13-2022 HIV 1+2 Ab+HIV1 p24 Ag IA Ql Non-Reactive Nonreactive [facility] Work Phone: [phone] INR in Blood by Coagulation assayon 01-13-2022 INR Coag (Bld) [Relative time] 1.0 {INR} [facility] Work Phone: [phone] Laboratory - Coagulationon 0 01-13-2022 PT Coag (PPP) [Time] 12.6 s 11.7-14.9 [facility] Work Phone: [phone] Panel Informationon 01-13 Centromere B Antibody <0.2 AI 0.0-0.9 [facility] Work Phone: [phone] Ceruloplasmin 22.7 mg/dL 19.0-39.0 [facility] Work Phone: [phone] Haptoglobin 142 mg/dL 33-278 [facility] Work Phone: [phone] Comment on above: Performed at: [address] [id number] Director: Viraj Sandoval PhD, Phone: [phone] at: [facility] [id number] Director: Emily Bacon MD, Phone: [phone] Hepatitis A IgM Antibody Negative Negative [facility] Work Phone: [phone] Hepatitis B Core IgM Antibody Negative Negative [facility] Work Phone: [phone] Hepatitis C Antibody (EIA) <0.1 s/co ratio 0.0-0.9 [facility] Work Phone: [phone] Hepatitis C Antibody Comment Comment . [facility] Work Phone: [phone] Comment on above: NegativeNot infected with HCV, unless recent infection issuspected or other evidence exists to indicate HCVinfection. [employer] Antibody 0.3 AI 0.0-0.9 [facility] Work Phone: [phone] Thyroid Stimulating Hormone (TSH) 0.59 uIU/mL 0.358-3.74 [facility] Work Phone: Serum DNA double strand anti body assay (units/volume)on 01-13-2022 DNA double strand Ab Qn (S) 1 [IU]/mL 0-9 [facility] Work Phone: Comment on above: Negative <5 Equivoca l 5 - 9 Positive >9 Serum Alise-1 antibody assay (u nits/volume)on 01-13-2022 Alise-1 extractable nuclear Ab Qn (S) <0.2 AI 0.0-0.9 [facility] Work Phone: Serum Scl-70 extractable nuc lear antibody assay (units/volume)on 01-13-2022 SCL-70 extractable nuclear Ab Qn (S) <0.2 AI 0.0-0.9 [facility] Work Phone: Serum Freedman extractable nucl ear antibody detectionon 01-13-2022 Freedman extractable nuclear Ab Ql (S) <0.2 AI 0.0-0.9 [facility] Work Phone: Serum classic neutrophil cyt oplasmic antibody assay (units/volume)on 01-13-2022 Neutrophil cytoplasmic Ab.classic Qn (S) <1:20 titer Neg:<1:20 [facility] Work Phone: Serum mitochondria antibody detectionon 01-13-2022 Mitochondria Ab Ql (S) <20.0 Units 0.0-20.0 [facility] Work Phone: Comment on above: Negative 0.0 - 20.0 Equivocal 20.1 - 24.9 Positive >24.9Mitochondrial (M2) Antibodies are found in 90-96% ofpatients with primary biliary cirrhosis.Performed at: [facility] [employer] [id number] Director: Viraj Sandoval PhD, Phone: [phone] Serum or plasma C reactive p rotein measurement (mass/volume)on 01-13-2022 CRP [Mass/Vol] mg/L 0.0-3.0 [facility] Work Phone: Comment on above: C-Reactive Protein ( CRP) provides useful information for thediagnosis, therapy and monitoring of inflammatory processesand associated diseases. For the evaluation of Relative Riskfor Cardiovascular Disease, a High Sensitivity CRP (HSCRP)should be ordered. Serum or plasma actin IgG an tibody assay (units/volume)on 01-13-2022 Actin IgG Qn 5 Units 0-19 [facility] Work Phone: Comment on above: Negative 0 - 19 Weak positive 20 - 30 Moderate to strong positive >30 Actin Antibodies are found in 52-85% of patients with autoimmune hepatitis or chronic active hepatitis and in 22% of patients with primary biliary cirrhosis. Serum or plasma [id number] protein tumor marker measurement (units/volume)on 01-13-2022 AFP.tumor marker Qn 2.5 ng/mL 0.0-6.4 [facility] Work Phone: Comment on above: [facility] El ectrochemiluminescence Immunoassay(ECLIA)Values obtained with different assay methods or kits cannotbe used interchangeably. Results cannot be interpreted asabsolute evidence of the presence or absence of malignantdisease.This test is not interpretable in females. Serum or plasma angiotensin converting enzyme measurement (enzymatic activity/volume)on 01-13-2022 Angiotensin converting enzyme [Catalytic activity/Vol] 24 U/L 14-82 [facility] Work Phone: Serum or plasma cholesterol in HDL measurement (mass/volume)on 01-13-2022 Cholesterol in HDL [Mass/Vol] 42 mg/dL >40 [facility] Work Phone: Comment on above: The drugs N-Acetylcy steine and Metamizole may falsely depress this assay. Reference Range HDL <40 mg/dL Low HDL Cholesterol HDL >or= 60 mg/dL High HDL Cholesterol Serum or plasma cholesterol in VLDL measurement (mass/volume)on 01-13-2022 Cholesterol in VLDL [Mass/Vol] 35 mg/dL 5-40 [facility] Work Phone: Serum or plasma ferritin adriana surement (mass/volume)on 01-13-2022 Ferritin [Mass/Vol] 19 ng/mL 8-252 [facility] Work Phone: Serum or plasma hepatitis B virus surface antigen detection by immunoassayon 01-13-2022 HBV surface Ag IA Ql Negative Negative [facility] Work Phone: Serum or plasma low density lipoprotein (LDL) cholesterol measurement (mass/volume)on 01-13-2022 Cholesterol in LDL [Mass/Vol] 143 mg/dL 0-130 [facility] Work Phone: Serum perinuclear neutrophil cytoplasmic antibody titer by immunofluorescenceon 01-13-2022 Neutrophil cytoplasmic Ab.perinuclear IF (S) [Titer] <1:20 titer Neg:<1:20 [facility] Work Phone: Comment on above: The presence of posi tive fluorescence exhibiting P-ANCA orC-ANCA patterns alone is not specific for the diagnosis ofWegener's Granulomatosis (WG) or microscopic polyangiitis.Decisions about treatment should not be based solely onANCA IFA results. The [employer] Consensusrecommends follow up testing of positive sera with both GA-3 and MPO-ANCA enzyme immunoassays. As many as 5% serumsamples are positive only by EIA. Ref. AM J Clin [id number];111:507-513. Thin prep Papanicolaou smear with manual screeningon 01-13-2022 Thin prep Papanicolaou smear with manual screening 164 U/L 84-246 [facility] Work Phone: Thin prep Papanicolaou smear with manual screening 109 ug/dL 80-158 [facility] Work Phone: Comment on above: Detection Limit = 5 Whole blood hemoglobin A1c/t otal hemoglobin ratio (mass fraction)on 01-13-2022 HbA1c (Bld) [Mass fraction] 5.4 % 3.8-5.6 [facility] Work Phone: Comment on above: Normal < 5.7 % Predi abetic 5.7 - 6.4 % Diabetic >or= 6.5 % Please note range changes. No Panel Informationon 01-03 Stool Neutral Fats Normal . [facility] Work Phone: Comment on above: Normal (<60 Droplets /HPF) Stool Pancreatic Elastase > 500 >200 [facility] Work Phone: Comment on above: Result Units: ug Pooja st./g Severe Pancreatic Insufficiency: <100 Moderate Pancreatic Insufficiency: 100 - 200 Normal: >200Performed at: [facility] [address] [id number] Director: Emily Bacon MD, Phone: [phone] Qualitative fecal fat or lip idson 01-03-2022 Fat Ql (Stl) Normal . [facility] Work Phone: Comment on above: Normal (<100 Droplet s/HPF)Performed at: [facility] [address] [id number] Director: Viraj Sandoval PhD, Phone: [phone] Absolute lymphocyte counton 12-23-2021 Lymphocytes Auto (Unsp spec) [#/Vol] 2.19 10*3/uL 0.83-4.51 [facility] Work Phone: Basophil percentageon 2021 Basophils/100 WBC (Bld) 0.5 % 0-1 [facility] Work Phone: [phone] Bilirubin [Mass/Vol] 0.30 mg/dL 0.20-1.00 [facility] Work Phone: Comment on above: For patients on eltr ombopag therapy, use of Dimension [place] TBIL is not recommended. Chloride [Moles/Vol] 106 mmol/L 98-107 [facility] Work Phone: Eosinophils/100 WBC (Bld) 4.8 % 0-5 [facility] Work Phone: [phone] Glucose [Mass/Vol] 111 mg/dL 74-106 [facility] Work Phone: [phone] Comment on above: Fasting Glucose resu lt from 100 to 125 mg/dL suggests IMPAIRED HOMEOSTASIS per A.D.A. criteria. Neutrophils (Bld) [#/Vol] 3.0 10*3/uL 2.0-7.7 [facility] Work Phone: Neutrophils/100 WBC (Bld) 49.1 % 47-70 [facility] Work Phone: Potassium [Moles/Vol] 3.5 mmol/L 3.5-5.1 [facility] Work Phone: Protein [Mass/Vol] 7.5 g/dL 6.4-8.2 [facility] Work Phone: Sodium [Moles/Vol] 138 mmol/L 136-145 [facility] Work Phone: WBC (Bld) [#/Vol] 6.1 10*3/uL 4.4-11.0 [facility] Work Phone: Basophil percentage 0-5 SEEN /hpf 0-5 [place] [facility] Work Phone: Beta hCG serum qualon 2021 Beta HCG ( test) Ql Negative [facility] Work Phone: Bilirubin Test strip Ql (U)o n 12-23-2021 Bilirubin Ql (U) Negative Negative [facility] Work Phone: Blood erythrocytes count (nu mber/volume)on 12-23-2021 RBC (Bld) [#/Vol] 4.87 10*6/uL 4.2-5.4 [facility] Work [facility]: Blood hemoglobin measurement (mass/volume)on 12-23-2021 Hemoglobin (Bld) [Mass/Vol] 13.7 g/dL 12.0-15.0 [facility] Work Phone: Blood lymphocytes/100 leukoc yteson 12-23-2021 Lymphocytes/100 WBC (Bld) 36.1 % 19-41 [facility] Work Phone: Blood monocytes/100 leukocyt eson 12-23-2021 Monocytes/100 WBC (Bld) 9.2 % 0-10 [facility] Work Phone: Blood platelet mean volumeon 12-23-2021 Platelet mean volume (Bld) [Entitic vol] 11.1 fL 6.2-12.0 [facility] Work Phone: [phone] Determination of erythrocyte mean corpuscular volume (MCV)on 12-23-2021 MCV (RBC) [Entitic vol] 87.5 fL 81-99 [facility] Work Phone: [phone] Hematocrit Auto (Bld) [Volum e fraction]on 12-23-2021 Hematocrit (Bld) [Volume fraction] 42.6 % 37-47 [facility] Work Phone: [phone] Ketones Test strip Ql (U)on 12-23-2021 Ketones Ql (U) Negative Negative [facility] Work Phone: [phone] Laboratory - Chemistry and C hemistry - challengeon 12-23-2021 ALP [Catalytic activity/Vol] 54 U/L 45-117 [facility] Work Phone: [phone] ALT [Catalytic activity/Vol] 19 U/L 13-56 [facility] Work Phone: [phone] CO2 [Moles/Vol] 27.0 mmol/L 21.0-32.0 [facility] Work Phone: [phone] Globulin (S) [Mass/Vol] 3.6 g/dL 2.2-4.2 [facility] Work Phone: [phone] Lipase [Catalytic activity/Vol] 98 U/L 73-393 [facility] Work Phone: [phone] Urea nitrogen/Creatinine [Mass ratio] 11.9 mg/mg 10-20 [facility] Work Phone: [phone] Laboratory - Hematology and Cell countson 12-23-2021 Erythrocyte distribution width (RBC) [Entitic vol] 42.2 fL 35.1-43.9 [facility] Work Phone: [phone] Erythrocyte distribution width (RBC) [Ratio] 13.3 % 11.6-14.6 [facility] Work Phone: [phone] Immature granulocytes/100 WBC (Bld) 0.300 % 0.0-0.9 [facility] Work Phone: [phone] Comment on above: IG% - Immature Granu locytes (promyelocytes, myelocytes and metamyelocytes) > 1% indicates that a LEFT SHIFT is Present. MCH (RBC) [Entitic mass] 28.1 pg 27.0-32.0 [facility] Work Phone: [phone] Nucleated RBC/100 WBC (Bld) [Ratio] 0 % 0-5 [facility] Work Phone: [phone] MCHC Auto (RBC) [Mass/Vol]on 12-23-2021 MCHC (RBC) [Mass/Vol] 32.2 g/dL 32-36 [facility] Work Phone: Mucus LM Ql (Urine sed)on Mucus Ql (Urine sed) 0 SEEN /hpf [facility] Work Phone: [phone] Nitrite Test strip Ql (U)on 12-23-2021 Nitrite Ql (U) Negative Negative [facility] Work Phone: [phone] Panel Informationon 12-23 Estimated Creatinine Clearance Calc 88.34 ml/min [facility] Work Phone: [phone] Estimated GFR (MDRD) Amer 100 mL/min >60 [facility] Work Phone: [phone] Comment on above: GFR Calc Estimated GFR (MDRD) Non-Af Amer 83 mL/min >60 [facility] Work Phone: [phone] Comment on above: Non- GFR Calc Platelets bldon 12-23-2021 Platelets (Bld) [#/Vol] 184 10*3/uL 150-450 [facility] Work Phone: [phone] Protein Test strip Ql (U)on 12-23-2021 Protein Ql (U) Negative Negative [facility] Work Phone: [phone] Serum or plasma albumin mg urement (mass/volume)on 12-23-2021 Albumin [Mass/Vol] 3.9 g/dL 3.2-5.0 [facility] Work Phone: [phone] Serum or plasma albumin/glob ulin mass ratioon 12-23-2021 Albumin/Globulin [Mass ratio] 1.1 {ratio} 0.9-2.4 [facility] Work Phone: Serum or plasma calcium mg urement (mass/volume)on 12-23-2021 Calcium [Mass/Vol] 9.2 mg/dL 8.5-10.1 [facility] Work Phone: Serum or plasma creatinine m easurement (mass/volume)on 12-23-2021 Creatinine [Mass/Vol] 0.84 mg/dL 0.55-1.02 [facility] Work Phone: Comment on above: The validity of the calculated GFR & GFRAA in patients over 70 years has not been determined. Clinical correlation is essential. Serum or plasma urea nitroge n measurement (mass/volume)on 12-23-2021 Urea nitrogen [Mass/Vol] 10 mg/dL 7-18 [facility] Work Phone: Squamous epithelial cells de tection in urine sediment by light microscopyon 12-23-2021 Epithelial cells.squamous LM Ql (Urine sed) 0-5 SEEN /hpf 5-10 [facility] Work Phone: Thin prep Papanicolaou smear with manual screeningon 12-23-2021 Thin prep Papanicolaou smear with manual screening 11 U/L 15-37 [facility] Work Phone: [phone] Thin prep Papanicolaou smear with manual screening 5 5-15 [facility] Work Phone: Urine blood detectionon 08- RBC Ql (U) Negative Negative [facility] Work Phone: RBC Ql (U) 0-5 SEEN /hpf 0-5 [facility] Work Phone: Urine clarityon 12-23-2021 Clarity (U) Clear Clear [facility] Work Phone: Urine color determinationon 12-23-2021 Color (U) Yellow Yellow [facility] Work Phone: [phone] Urine glucose detectionon Glucose Ql (U) Normal mg/dl Normal [facility] Work Phone: [phone] Urine leukocyte esterase det ection by dipstickon 12-23-2021 Leukocyte esterase Test strip Ql (U) Negative Negative [facility] Work Phone: Urine pHon 12-23-2021 pH (U) 6.0 [pH] 5.0 - 8.0 [facility] Work Phone: Urine sediment bacteria coun t by microscopy (number/high power field)on 12-23-2021 Bacteria LM.HPF (Urine sed) [#/Area] 1 /[HPF] None Seen [facility] Work Phone: Urine specific gravity measu rementon 12-23-2021 Specific gravity (U) [Rel density] 1.020 1.002-1.030 [facility] Work Phone: Urobilinogen Auto test strip Ql (U)on 12-23-2021 Urobilinogen Ql (U) Normal mg/dl Normal [facility] Work Phone: Absolute lymphocyte counton 11-27-2021 Lymphocytes Auto (Unsp spec) [#/Vol] 1.49 10*3/uL 0.83-4.51 [facility] Work Phone: Basophil percentageon 2021 Basophils/100 WBC (Bld) 0.3 % 0-1 [facility] Work Phone: Chloride [Moles/Vol] 105 mmol/L 98-107 [facility] Work Phone: Eosinophils/100 WBC (Bld) 2.8 % 0-5 [facility] Work Phone: Glucose [Mass/Vol] 120 mg/dL 74-106 [facility] Work Phone: Comment on above: Fasting Glucose resu lt from 100 to 125 mg/dL suggests IMPAIRED HOMEOSTASIS per A.D.A. criteria. Neutrophils (Bld) [#/Vol] 3.5 10*3/uL 2.0-7.7 [facility] Work Phone: Neutrophils/100 WBC (Bld) 60.9 % 47-70 [facility] Work Phone: Potassium [Moles/Vol] 4.4 mmol/L 3.5-5.1 [facility] Work Phone: Comment on above: Moderate Hemolysis, Result may be falsely increased. Sodium [Moles/Vol] 138 mmol/L 136-145 [facility] Work Phone: [phone] WBC (Bld) [#/Vol] 5.8 10*3/uL 4.4-11.0 [facility] Work Phone: [phone] Blood erythrocytes count (nu mber/volume)on 11-27-2021 RBC (Bld) [#/Vol] 4.59 10*6/uL 4.2-5.4 [facility] Work Phone: Blood hemoglobin measurement (mass/volume)on 11-27-2021 Hemoglobin (Bld) [Mass/Vol] 12.8 g/dL 12.0-15.0 [facility] Work Phone: Blood lymphocytes/100 leukoc yteson 11-27-2021 Lymphocytes/100 WBC (Bld) 25.8 % 19-41 [facility] Work Phone: Blood monocytes/100 leukocyt eson 11-27-2021 Monocytes/100 WBC (Bld) 9.9 % 0-10 [facility] Work Phone: Blood platelet mean volumeon 11-27-2021 Platelet mean volume (Bld) [Entitic vol] 11.4 fL 6.2-12.0 [facility] Work Phone: Determination of erythrocyte mean corpuscular volume (MCV)on 11-27-2021 MCV (RBC) [Entitic vol] 86.9 fL 81-99 [facility] Work Phone: Hematocrit Auto (Bld) [Volum e fraction]on 11-27-2021 Hematocrit (Bld) [Volume fraction] 39.9 % 37-47 [facility] Work Phone: Laboratory - Chemistry and C hemistry - challengeon 11-27-2021 CO2 [Moles/Vol] 30.0 mmol/L 21.0-32.0 [facility] Work Phone: [phone] Magnesium [Mass/Vol] 1.9 mg/dL 1.6-2.6 [facility] Work Phone: [phone] Comment on above: Moderate Hemolysis, Result may be falsely increased. Urea nitrogen/Creatinine [Mass ratio] 9.8 mg/mg 10-20 [facility] Work Phone: [phone] Laboratory - Hematology and Cell countson 11-27-2021 Erythrocyte distribution width (RBC) [Entitic vol] 41.5 fL 35.1-43.9 [facility] Work Phone: [phone] Erythrocyte distribution width (RBC) [Ratio] 13.2 % 11.6-14.6 [facility] Work Phone: [phone] Immature granulocytes/100 WBC (Bld) 0.300 % 0.0-0.9 [facility] Work Phone: [phone] Comment on above: IG% - Immature Granu locytes (promyelocytes, myelocytes and metamyelocytes) > 1% indicates that a LEFT SHIFT is Present. MCH (RBC) [Entitic mass] 27.9 pg 27.0-32.0 [facility] Work Phone: [phone] Nucleated RBC/100 WBC (Bld) [Ratio] 0 % 0-5 [facility] Work Phone: [phone] MCHC Auto (RBC) [Mass/Vol]on 11-27-2021 MCHC (RBC) [Mass/Vol] 32.1 g/dL 32-36 [facility] Work Phone: [phone] Panel Informationon 11-27 Estimated Creatinine Clearance Calc 90.50 ml/min [facility] Work Phone: [phone] Estimated GFR (MDRD) Amer 102 mL/min >60 [facility] Work Phone: [phone] Comment on above: GFR Calc Estimated GFR (MDRD) Non-Af Amer 85 mL/min >60 [facility] Work Phone: [phone] Comment on above: Non- GFR Calc Thyroid Stimulating Hormone (TSH) 4.97 uIU/mL 0.358-3.74 [facility] Work Phone: Platelets bldon 11-27-2021 Platelets (Bld) [#/Vol] 168 10*3/uL 150-450 [facility] Work Phone: Serum or plasma calcium mg urement (mass/volume)on 11-27-2021 Calcium [Mass/Vol] 8.9 mg/dL 8.5-10.1 [facility] Work Phone: Serum or plasma creatinine m easurement (mass/volume)on 11-27-2021 Creatinine [Mass/Vol] 0.82 mg/dL 0.55-1.02 [facility] Work Phone: Comment on above: The validity of the calculated GFR & GFRAA in patients over 70 years has not been determined. Clinical correlation is essential. Serum or plasma urea nitroge n measurement (mass/volume)on 11-27-2021 Urea nitrogen [Mass/Vol] 8 mg/dL 7-18 [facility] Work Phone: Thin prep Papanicolaou smear with manual screeningon 11-27-2021 Thin prep Papanicolaou smear with manual screening 3 5-15 [facility] Work Phone: Absolute lymphocyte counton 08-20-2021 Lymphocytes Auto (Unsp spec) [#/Vol] 1.34 10*3/uL 0.83-4.51 [facility] Work Phone: Basophil percentageon 2021 Basophil percentage 0 SEEN /hpf 0-5 [facility] Work Phone: Basophils/100 WBC (Bld) 0.8 % 0-1 [facility] Work Phone: [phone] Bilirubin [Mass/Vol] 0.30 mg/dL 0.20-1.00 [facility] Work Phone: Comment on above: For patients on eltr ombopag therapy, use of Dimension [place] TBIL is not recommended. Chloride [Moles/Vol] 107 mmol/L 98-107 [facility] Work Phone: Eosinophils/100 WBC (Bld) 2.8 % 0-5 [facility] Work Phone: Glucose [Mass/Vol] 87 mg/dL 74-106 [facility] Work Phone: Neutrophils (Bld) [#/Vol] 3.0 10*3/uL 2.0-7.7 [facility] Work Phone: Neutrophils/100 WBC (Bld) 59.5 % 47-70 [facility] Work Phone: Potassium [Moles/Vol] 3.8 mmol/L 3.5-5.1 [facility] Work Phone: Protein [Mass/Vol] 7.9 g/dL 6.4-8.2 [facility] Work Phone: Sodium [Moles/Vol] 137 mmol/L 136-145 [facility] Work Phone: WBC (Bld) [#/Vol] 5.0 10*3/uL 4.4-11.0 [facility] Work Phone: Beta hCG serum qualon 2021 Beta HCG ( test) Ql Negative [facility] Work Phone: Bilirubin Test strip Ql (U)o n 08-20-2021 Bilirubin Ql (U) Negative Negative [facility] Work Phone: Blood erythrocytes count (nu mber/volume)on 08-20-2021 RBC (Bld) [#/Vol] 5.32 10*6/uL 4.2-5.4 [facility] Work Phone: Blood hemoglobin measurement (mass/volume)on 08-20-2021 Hemoglobin (Bld) [Mass/Vol] 14.6 g/dL 12.0-15.0 [facility] Work Phone: Blood lymphocytes/100 leukoc yteson 08-20-2021 Lymphocytes/100 WBC (Bld) 27.0 % 19-41 [facility] Work Phone: Blood monocytes/100 leukocyt eson 08-20-2021 Monocytes/100 WBC (Bld) 9.7 % 0-10 [facility] Work Phone: Blood platelet mean volumeon 08-20-2021 Platelet mean volume (Bld) [Entitic vol] 11.4 fL 6.2-12.0 [facility] Work Phone: [phone] Determination of erythrocyte mean corpuscular volume (MCV)on 08-20-2021 MCV (RBC) [Entitic vol] 84.2 fL 81-99 [facility] Work Phone: [phone] Hematocrit Auto (Bld) [Volum e fraction]on 08-20-2021 Hematocrit (Bld) [Volume fraction] 44.8 % 37-47 [facility] Work Phone: [phone] Ketones Test strip Ql (U)on 08-20-2021 Ketones Ql (U) Negative Negative [facility] Work Phone: Laboratory - Chemistry and C hemistry - challengeon 08-20-2021 ALP [Catalytic activity/Vol] 65 U/L 45-117 [facility] Work Phone: [phone] ALT [Catalytic activity/Vol] 30 U/L 13-56 [facility] Work Phone: [phone] CO2 [Moles/Vol] 26.0 mmol/L 21.0-32.0 [facility] Work Phone: Globulin (S) [Mass/Vol] 3.8 g/dL 2.2-4.2 [facility] Work Phone: [phone] Lipase [Catalytic activity/Vol] 119 U/L 73-393 [facility] Work Phone: [phone] Urea nitrogen/Creatinine [Mass ratio] 7.6 mg/mg 10-20 [facility] Work Phone: [phone] Laboratory - Hematology and Cell countson 08-20-2021 Erythrocyte distribution width (RBC) [Entitic vol] 41.4 fL 35.1-43.9 [facility] Work Phone: Erythrocyte distribution width (RBC) [Ratio] 13.5 % 11.6-14.6 [facility] Work Phone: [phone] Immature granulocytes/100 WBC (Bld) 0.200 % 0.0-0.9 [facility] Work Phone: [phone] Comment on above: IG% - Immature Granu locytes (promyelocytes, myelocytes and metamyelocytes) > 1% indicates that a LEFT SHIFT is Present. MCH (RBC) [Entitic mass] 27.4 pg 27.0-32.0 [facility] Work Phone: Nucleated RBC/100 WBC (Bld) [Ratio] 0 % 0-5 [facility] Work Phone: [phone] MCHC Auto (RBC) [Mass/Vol]on 08-20-2021 MCHC (RBC) [Mass/Vol] 32.6 g/dL 32-36 [facility] Work Phone: Mucus LM Ql (Urine sed)on Mucus Ql (Urine sed) 0 SEEN /hpf [facility] Work Phone: [phone] Nitrite Test strip Ql (U)on 08-20-2021 Nitrite Ql (U) Negative Negative [facility] Work Phone: No Panel Informationon 08-20 Estimated Creatinine Clearance Calc 93.93 ml/min [facility] Work Phone: [phone] Estimated GFR (MDRD) Amer 106 mL/min >60 [facility] Work Phone: [phone] Comment on above: GFR Calc Estimated GFR (MDRD) Non-Af Amer 88 mL/min >60 [facility] Work Phone: [phone] Comment on above: Non- GFR Calc Platelets bldon 08-20-2021 Platelets (Bld) [#/Vol] 183 10*3/uL 150-450 [facility] Work Phone: [phone] Protein Test strip Ql (U)on 08-20-2021 Protein Ql (U) Negative Negative [facility] Work Phone: Serum or plasma albumin mg urement (mass/volume)on 08-20-2021 Albumin [Mass/Vol] 4.1 g/dL 3.2-5.0 [facility] Work Phone: [phone] Serum or plasma albumin/glob ulin mass ratioon 08-20-2021 Albumin/Globulin [Mass ratio] 1.1 {ratio} 0.9-2.4 [facility] Work Phone: [phone] Serum or plasma calcium mg urement (mass/volume)on 08-20-2021 Calcium [Mass/Vol] 9.2 mg/dL 8.5-10.1 [facility] Work Phone: [phone] Serum or plasma creatinine m easurement (mass/volume)on 08-20-2021 Creatinine [Mass/Vol] 0.79 mg/dL 0.55-1.02 [facility] Work Phone: [phone] Comment on above: The validity of the calculated GFR & GFRAA in patients over 70 years has not been determined. Clinical correlation is essential. Serum or plasma urea nitroge n measurement (mass/volume)on 08-20-2021 Urea nitrogen [Mass/Vol] 6 mg/dL 7-18 [facility] Work Phone: [phone] Squamous epithelial cells de tection in urine sediment by light microscopyon 08-20-2021 Epithelial cells.squamous LM Ql (Urine sed) 5-10 SEEN /hpf 5-10 [facility] Work Phone: [phone] Thin prep Papanicolaou smear with manual screeningon 08-20-2021 Thin prep Papanicolaou smear with manual screening 14 U/L 15-37 [facility] Work Phone: [phone] Thin prep Papanicolaou smear with manual screening 4 5-15 [facility] Work Phone: [phone] Urine blood detectionon 04- RBC Ql (U) Negative Negative [facility] Work Phone: [phone] RBC Ql (U) 0 SEEN /hpf 0-5 [facility] Work Phone: [phone] Urine clarityon 08-20-2021 Clarity (U) Clear Clear [facility] Work Phone: Urine color determinationon 08-20-2021 Color (U) Yellow Yellow [facility] Work Phone: Urine glucose detectionon Glucose Ql (U) Normal mg/dl Normal [facility] Work Phone: Urine leukocyte esterase det ection by dipstickon 08-20-2021 Leukocyte esterase Test strip Ql (U) Negative Negative [facility] Work Phone: Urine pHon 08-20-2021 pH (U) 6.0 [pH] 5.0 - 8.0 [facility] Work Phone: Urine sediment bacteria coun t by microscopy (number/high power field)on 08-20-2021 Bacteria LM.HPF (Urine sed) [#/Area] 0 /[HPF] None Seen [facility] Work Phone: Urine specific gravity measu rementon 08-20-2021 Specific gravity (U) [Rel density] 1.015 1.002-1.030 [facility] Work Phone: Urobilinogen Auto test strip Ql (U)on 08-20-2021 Urobilinogen Ql (U) Normal mg/dl Normal [facility] Work Phone: No Panel Informationon 08-11 Thyroid Stimulating Hormone (TSH) 2.44 uIU/mL 0.358-3.74 [facility] Work Phone: Absolute lymphocyte counton 06-08-2021 Lymphocytes Auto (Unsp spec) [#/Vol] 1.22 10*3/uL 0.83-4.51 [facility] Work Phone: Basophil percentageon 2021 Basophils/100 WBC (Bld) 0.6 % 0-1 [facility] Work Phone: Bilirubin [Mass/Vol] 0.40 mg/dL 0.20-1.00 [facility] Work Phone: Comment on above: For patients on eltr ombopag therapy, use of Dimension [place] TBIL is not recommended. Chloride [Moles/Vol] 103 mmol/L 98-107 [facility] Work Phone: Eosinophils/100 WBC (Bld) 3.3 % 0-5 [facility] Work Phone: Glucose [Mass/Vol] 102 mg/dL 74-106 [facility] Work Phone: Comment on above: Fasting Glucose resu lt from 100 to 125 mg/dL suggests IMPAIRED HOMEOSTASIS per A.D.A. criteria. Neutrophils (Bld) [#/Vol] 3.0 10*3/uL 2.0-7.7 [facility] Work Phone: Neutrophils/100 WBC (Bld) 62.1 % 47-70 [facility] Work Phone: Potassium [Moles/Vol] 3.9 mmol/L 3.5-5.1 [facility] Work Phone: Protein [Mass/Vol] 7.3 g/dL 6.4-8.2 [facility] Work Phone: Sodium [Moles/Vol] 139 mmol/L 136-145 [facility] Work Phone: WBC (Bld) [#/Vol] 4.9 10*3/uL 4.4-11.0 [facility] Work Phone: Blood erythrocytes count (nu mber/volume)on 06-08-2021 RBC (Bld) [#/Vol] 5.20 10*6/uL 4.2-5.4 [facility] Work Phone: Blood hemoglobin measurement (mass/volume)on 06-08-2021 Hemoglobin (Bld) [Mass/Vol] 14.3 g/dL 12.0-15.0 [facility] Work Phone: Blood lymphocytes/100 leukoc yteson 06-08-2021 Lymphocytes/100 WBC (Bld) 25.0 % 19-41 [facility] Work Phone: Blood monocytes/100 leukocyt eson 06-08-2021 Monocytes/100 WBC (Bld) 8.6 % 0-10 [facility] Work Phone: [phone] Blood platelet mean volumeon 06-08-2021 Platelet mean volume (Bld) [Entitic vol] 11.4 fL 6.2-12.0 [facility] Work Phone: [phone] Determination of erythrocyte mean corpuscular volume (MCV)on 06-08-2021 MCV (RBC) [Entitic vol] 84.0 fL 81-99 [facility] Work Phone: [phone] Hematocrit Auto (Bld) [Volum e fraction]on 06-08-2021 Hematocrit (Bld) [Volume fraction] 43.7 % 37-47 [facility] Work Phone: Laboratory - Chemistry and C hemistry - challengeon 06-08-2021 ALP [Catalytic activity/Vol] 65 U/L 45-117 [facility] Work Phone: [phone] ALT [Catalytic activity/Vol] 51 U/L 13-56 [facility] Work Phone: [phone] CO2 [Moles/Vol] 30.0 mmol/L 21.0-32.0 [facility] Work Phone: [phone] Globulin (S) [Mass/Vol] 3.7 g/dL 2.2-4.2 [facility] Work Phone: [phone] Urea nitrogen/Creatinine [Mass ratio] 12.5 mg/mg 10-20 [facility] Work Phone: [phone] Laboratory - Hematology and Cell countson 06-08-2021 Erythrocyte distribution width (RBC) [Entitic vol] 40.0 fL 35.1-43.9 [facility] Work Phone: [phone] Erythrocyte distribution width (RBC) [Ratio] 13.0 % 11.6-14.6 [facility] Work Phone: [phone] Immature granulocytes/100 WBC (Bld) 0.400 % 0.0-0.9 [facility] Work Phone: [phone] Comment on above: IG% - Immature Granu locytes (promyelocytes, myelocytes and metamyelocytes) > 1% indicates that a LEFT SHIFT is Present. MCH (RBC) [Entitic mass] 27.5 pg 27.0-32.0 [facility] Work Phone: Nucleated RBC/100 WBC (Bld) [Ratio] 0 % 0-5 [facility] Work Phone: [phone] MCHC Auto (RBC) [Mass/Vol]on 06-08-2021 MCHC (RBC) [Mass/Vol] 32.7 g/dL 32-36 [facility] Work Phone: No Panel Informationon 06-08 Thyroid Stimulating Hormone (TSH) 0.30 uIU/mL 0.358-3.74 [facility] Work Phone: Estimated GFR (MDRD) Amer 119 mL/min >60 [facility] Work Phone: [phone] Comment on above: GFR Calc Estimated GFR (MDRD) Non-Af Amer 99 mL/min >60 [facility] Work Phone: [phone] Comment on above: Non- GFR Calc Vitamin D 25-Hydroxy 16.2 ng/mL [facility] Work Phone: [phone] Comment on above: Vitamin D 25(OH) Sta tus Range Deficiency <20 ng/mL (50nmol/L) Insufficiency 20 - 30 ng/mL (50 - 75 nmol/L) Sufficiency 30 - 100 ng/mL (75 - 250 nmol/L) Toxicity >100 ng/mL (>250 nmol/L) Platelets bldon 06-08-2021 Platelets (Bld) [#/Vol] 178 10*3/uL 150-450 [facility] Work Phone: [phone] Serum or plasma albumin mg urement (mass/volume)on 06-08-2021 Albumin [Mass/Vol] 3.6 g/dL 3.2-5.0 [facility] Work Phone: [phone] Serum or plasma albumin/glob ulin mass ratioon 06-08-2021 Albumin/Globulin [Mass ratio] 1.0 {ratio} 0.9-2.4 [facility] Work Phone: Serum or plasma calcium mg urement (mass/volume)on 06-08-2021 Calcium [Mass/Vol] 8.7 mg/dL 8.5-10.1 [facility] Work Phone: Serum or plasma creatinine m easurement (mass/volume)on 06-08-2021 Creatinine [Mass/Vol] 0.72 mg/dL 0.55-1.02 [facility] Work Phone: Comment on above: The validity of the calculated GFR & GFRAA in patients over 70 years has not been determined. Clinical correlation is essential. Serum or plasma urea nitroge n measurement (mass/volume)on 06-08-2021 Urea nitrogen [Mass/Vol] 9 mg/dL 7-18 [facility] Work Phone: Thin prep Papanicolaou smear with manual screeningon 06-08-2021 Thin prep Papanicolaou smear with manual screening 25 U/L 15-37 [facility] Work Phone: Thin prep Papanicolaou smear with manual screening 6 5-15 [facility] Work Phone: SARS coronavirus RNA [Presen ce] in Unspecified specimen by JONE with probe detectionon 05-24-2021 SARS-CoV RNA JONE+probe Ql (Unsp spec) Not detected Not Detected [facility] Work Phone: Comment on above: This nucleic [...] of in vitro diagnostic tests for detection [id number] virus and/or diagnosis of COVID-19 infectionunder section [...] 12-31-2020 IMPRESSION: No acute osseous abnormality identified. Overcoiler: ANA Transcribe Date/Time: Dec 31 2020 1:18P Dictated by : ADE MELÉNDEZ MD This examination was interpreted and the report reviewed and electronically signed by: ADE MELÉNDEZ MD on Dec 31 2020 1:20PM [facility] DIVISION OF RADIOLOGY * * *Final Report* [...] tissue abnormality identified. DIVISION OF RADIOLOGY Provider, [facility] 12/31/2020 * * *Final [...] IMPRESSION IMPRESSION: No acute osseous abnormality identified. Overcoiler: ANA Transcribe Date/Time: Dec 31 2020 1:18P Dictated by : ADE MELÉNDEZ MD This examination was interpreted and the report reviewed and electronically signed by: ADE MELÉNDEZ MD on Dec 31 2020 1:20PM EST [facility] Radiology Study observation (narrative) Stacia mckay [facility] XR Shoulder - left 3 ViewsOr dered By: [facility] Provider on 12-31-2020 [facility] XR Chest PA and Lateralon IMPRESSION: No acute radiographic abnormality. Overcoiler: ANA Transcribe Date/Time: Jun 25 2020 3:58P Dictated by : JOSHUA CLARK MD This examination was interpreted and the report reviewed and electronically signed by: JOSHUA CLARK MD on Jun 25 2020 3:59PM [facility] DIVISION OF RADIOLOGY * * *Final Report* [...] soft tissues: Unremarkable. DIVISION OF RADIOLOGY Provider, [facility] - 06/25/2020 * * *Final Report* * [...] Unremarkable. IMPRESSION IMPRESSION: No acute radiographic abnormality. Overcoiler: PSCDom Transcribe Date/Time: Jun 25 2020 3:58P Dictated by : JOSHUA CLARK MD This examination was interpreted and the report reviewed and electronically signed by: JOSHUA CLARK MD on Jun 25 2020 3:59PM EST [facility] Rad[facility]narrative) [facility] Chest PA and LateralOrder ed By: Gutierrez Provider on 06-25-2020 [facility] Office Visit: OB Routineon 1 06-19-2016 Documentation of current medications (procedure) Done Invalid Interpretation Code [facility] Urine, glucose presence N Invalid Interpretation Code [facility] Urine, protein N Invalid Interpretation Code [facility] Office Visit: OB Routineon 1 06-10-2016 Documentation of current medications (procedure) Done Invalid Interpretation Code [facility] Urine, glucose presence N Invalid Interpretation Code [facility] Urine, protein N Invalid Interpretation Code [facility] Office Visit: OB Routineon 1 Albumin Ql (U) N Invalid Interpretation Code [facility] Documentation of current medications (procedure) Done Invalid Interpretation Code [facility] Glucose Test strip mass conc (U) N Invalid Interpretation Code [facility] Protein mass conc Done Invalid Interpretation Code [facility] Tobacco smoking status WVIS Never Invalid Interpretation Code [facility] Tobacco smoking status WVIS Tobacco smoking status NHIS Invalid Interpretation Code [facility] Tobacco smoking status WVIS Current every day smoker Invalid Interpretation Code [facility] Tobacco use [facility] Current every day smoker Invalid Interpretation Code [facility] Urine, glucose presence N Invalid Interpretation Code [facility] Urine, protein N Invalid Interpretation Code [facility] 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-2017 [employer] Test Program Manager 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 Interface Message Text Patient rescheduled due to illness Normal [facility] Office Visit: OB Routineon 0 02-17-2017 Albumin Ql (U) N Invalid Interpretation Code [facility] Documentation of current medications (procedure) Done Invalid Interpretation Code [facility] Glucose Test strip mass conc (U) N Invalid Interpretation Code [facility] Protein mass conc Done Invalid Interpretation Code [facility] Urine, glucose presence N Invalid Interpretation Code [facility] Urine, protein N Invalid Interpretation Code [facility] Lab Report: HIV Screen 4TH G EN W/Confirmon 02-10-2017 GE use only - for [employer] import when terms are not otherwise specified . Invalid Interpretation Code Non Reactive [facility] Lab Report: Hepatitis B Surf dakotah Agon 02-10-2017 BSA (Body Surface Area) . Invalid Interpretation Code Negative [facility] Lab Report: Rapid Plasmin Re agin (RPR)on 02-10-2017 Reagin antibody presence . Invalid Interpretation Code NONREACTIVE [facility] Lab Report: Rubella IgGon rubella virus antibody, IgG 192.8 [iU]/mL Invalid Interpretation Code [facility] Replaced Document: HIV Scree n 4TH GEN W/Confirmon 02-10-2017 HIV1/0/2 SCREEN . Invalid Interpretation Code Non Reactive [facility] Replaced Document: Hepatitis B Surface Agon 02-10-2017 HBV surface Ag Ql (S) . Invalid Interpretation Code Negative [facility] Replaced Document: Rapid Jeremy smin Reagin (RPR)on 02-10-2017 Reagin Ab VDRL Qn (S) . Invalid Interpretation Code NONREACTIVE [facility] Replaced Document: Rubella I gGon 02-10-2017 Rubella IgG 192.8 [iU]/mL Invalid Interpretation Code [facility] Lab Report: CBC W/Diff, Auto matedon 02-09-2017 Basophils/100 WBC Auto (Bld) 0.2 % Invalid Interpretation Code 0-1 [facility] Eosinophils/100 leukocytes 3.2 % Invalid Interpretation Code 0-5 [facility] Erythrocyte distribution width Auto Ratio (RBC) 13.6 % Invalid Interpretation Code 11.6-14.6 [facility] Erythrocytes (RBC) 4.64 10*6/uL Invalid Interpretation Code 4.2-5.4 [facility] Hematocrit (HCT) 40.0 % Invalid Interpretation Code 37-47 [facility] Hemoglobin mass conc (Bld) 13.0 g/dL Invalid Interpretation Code 12.0-15.0 [facility] immature granulocytes, percentage of total cells, blood 0.200 % Invalid Interpretation Code 0.0-0.9 [facility] Lymphocytes 1.29 X10 3/UL Invalid Interpretation Code 0.83-4.51 [facility] Lymphocytes/100 leukocytes 25.7 % Invalid Interpretation Code 19-41 [facility] MCH 28.0 pg Invalid Interpretation Code 27.0-32.0 [facility] MCHC mass conc (RBC) 32.5 G/GL Invalid Interpretation Code 32-36 [facility] MCV 86.2 fL Invalid Interpretation Code 81-99 [facility] Monocytes/100 leukocytes 5.8 % Invalid Interpretation Code 0-10 [facility] neutrophil count, blood 3.3 X10 3/UL Invalid Interpretation Code 2.0-7.7 [facility] Neutrophils/100 WBC Auto (Bld) 64.9 % Invalid Interpretation Code 47-70 [facility] Platelets 171 10*3/mm3 Invalid Interpretation Code 150-450 [facility] PMV by Cordell 11.0 fL Invalid Interpretation Code 6.2-12.0 [facility] red blood cell distribution width, size density 42.8 fL Invalid Interpretation Code 35.1-43.9 [facility] WBC (Leukocytes) 5.0 10*3/uL Invalid Interpretation Code 4.4-11.0 [facility] Lab Report: Hemoglobin A1con 02-09-2017 Hemoglobin A1c/Hemoglobin.total mass fraction (Bld) 5.5 % Invalid Interpretation Code 4.2-6.3 [facility] Lab Report: T4 Total, Thyrox inon 02-09-2017 Thyroxine (T4) 11.4 ug/dL Invalid Interpretation Code 4.8-13.9 [facility] Lab Report: Thyroid Stim Hor kendrick (TSH)on 02-09-2017 Thyroid stimulating hormone (TSH) 6.03 u[iU]/mL High 0.358-3.74 [facility] Office Visit: OB Routineon 0 02-09-2017 Documentation of current medications (procedure) Done Invalid Interpretation Code [facility] Replaced Document: CBC W/Dif f, Automatedon 02-09-2017 Absolute Neut 3.3 X10 3/UL Invalid Interpretation Code 2.0-7.7 [facility] Basophils/100 WBC (Bld) 0.2 % 0-1 B [facility] Eosinophils/100 WBC (Bld) 3.2 % 0-5 [facility] Erythrocyte distribution width Auto Ratio (RBC) 42.8 fL Invalid Interpretation Code 35.1-43.9 [facility] Work Phone: Erythrocyte distribution width Ratio (RBC) 42.8 fL 35.1-43.9 [facility] Erythrocyte distribution width Ratio (RBC) 13.6 % 11.6-14.6 [facility] Hematocrit Volume Fraction (Bld) 40.0 % 37-47 [facility] Immature granulocytes #/vol (Bld) 0.200 % Invalid Interpretation Code 0.0-0.9 [facility] Immature granulocytes/100 WBC (Bld) 0.200 % Invalid Interpretation Code 0.0-0.9 [facility] Lymphocytes #/vol (Bld) 1.29 X10 3/UL 0.83-4.51 [facility] Lymphocytes/100 WBC (Bld) 25.7 % 19-41 [facility] MCH Entitic mass (RBC) 28.0 pg 27.0-32.0 [facility] MCHC mass conc (RBC) 32.5 G/GL 32-36 [facility] MCV Entitic volume (RBC) 86.2 fL 81-99 [facility] Monocytes/100 WBC (Bld) 5.8 % 0-[address] [facility] Neutrophils #/vol (Bld) 3.3 X10 3/UL 2.0-7.7 [facility] Neutrophils Auto #/vol (Bld) 3.3 X10 3/UL Invalid Interpretation Code 2.0-7.7 [facility] Work Phone: Neutrophils/100 WBC (Bld) 64.9 % 47-70 [facility] Platelet mean volume Entitic volume (Bld) 11.0 fL 6.2-12.0 [facility] Platelets #/vol (Bld) 171 10*3/mm3 150-[address] [facility] RBC #/vol (Bld) 4.64 10*6/uL 4.2-5.4 [facility] RDW SD 42.8 fL Invalid Interpretation Code 35.1-43.9 [facility] WBC #/vol (Bld) 5.0 10*3/uL 4.4-11.0 [facility] Microbiology: Culture, Genit al Comprehensiveon 01-20-2017 CUV . Invalid Interpretation Code [facility] GE use only - for [employer] import when terms are not otherwise specified . Invalid Interpretation Code [facility] Microbiology: (P) Culture, G enital Comprehensiveon 01-19-2017 GE use only - for [employer] import when terms are not otherwise specified . Invalid Interpretation Code [facility] Microbiology: (P) Culture, G enital Comprehensiveon 01-18-2017 GE use only - for [employer] import when terms are not otherwise specified . Invalid Interpretation Code [facility] Office Visit: bloody vaginal dischargeon 01-17-2017 Documentation of current medications (procedure) Done Invalid Interpretation Code [facility] Fall risk assessment No Invalid Interpretation Code [facility] Protein mass conc Done [facility] Tobacco smoking status NHIS Never Invalid Interpretation Code [facility] Tobacco smoking status NHIS Current every day smoker Invalid Interpretation Code [facility] Tobacco use [facility] Current every day smoker Invalid Interpretation Code [facility] Microbiology: Culture, Urine on 01-11-2017 CUUR . [facility] Append: OB Initialon 017 crown rump length by ultrasound 6.1 mm Invalid Interpretation Code [facility] estimated date of confinement by sonogram 09/01/2017 Invalid Interpretation Code [facility] cardiac activity by sonography Yes Invalid Interpretation Code [facility] number by ultrasound 1 Invalid Interpretation Code [facility] gestational age by ultrasound 6W 3D Invalid Interpretation Code [facility] OB ultrasound, gestational sac Yes Invalid Interpretation Code [facility] Lab Report: CT/NG [facility] BY PCR on 01-09-2017 Chlamydia trachomatis DNA [Presence] in Urine by Probe and target amplification method Negative Invalid Interpretation Code Negative [facility] Neisseria gonorrhoeae presence Negative Invalid Interpretation Code Negative [facility] Office Visit: OB Initialon 0 01-09-2017 Fall risk assessment No Bloo minon [facility] Herpes Simplex Virus Genital no Invalid Interpretation Code [facility] Tobacco smoking status NHIS Never [facility] Tobacco smoking status NHIS Current every day smoker [facility] Tobacco use [facility] Current every day smoker Invalid Interpretation Code [facility] Office Visit: OB Initialon 0 12-21-2015 General categories [Interpretation] of Cervical or vaginal smear or scraping by Cyto stain ASCUS Invalid Interpretation Code [facility] Bacteria identified Anaer cx Nom (Unsp spec) Anaerobic Culture Prevotella bivia [facility] Work Phone: Anaerobic Culture Prevotella melaninogenica [facility] Work Phone: Anaerobic Culture Anaerobic cocci [facility] Work Phone: Bacteria identified Cx Nom ( Wound) Wound Culture Enterococcus faecalis [facility] Work Phone: Culture, urine Bacteria identified Cx Nom (U) Positive [facility] Work Phone: Bacteria identified Cx Nom (U) Mixed Gram Pos & Gram Neg Org [facility] Work Phone: Gram stain for investigation of transfusion reaction Microscopic observation Gram stain Nom (Unsp spec) [facility] Work Phone: Influenza virus A and B and SARS-CoV-2 (COVID-19) Ag panel - Upper respiratory specim SARS-CoV-2 (COVID-19) RNA JONE+probe Ql (Resp) [facility] Work Phone: Laboratory - Microbiology an d Antimicrobial susceptibility Bacteria identified Cx Nom (Bld) No growth in 5 days. [facility] Work Phone: No Panel Information SARS-CoV-2 & FLU Antigen (Rapid) [facility] Work Phone: Vital Signs Date Time Vital Sign Value Performing Clinician Lennox calles 06-21-2024 13:58-0500 Body temperature 98.91 [degF] Tomasz Ace Jr., DPM Work Phone: [facility] 06-21-2024 13:58-0500 Diastolic blood pressure 82 mm[Hg] Tomasz Ace Jr., DPM Work Phone: [facility] 06-21-2024 13:58-0500 Heart rate 90 /min Tomasz Ace Jr., DPM Work Phone: [facility] 06-21-2024 13:58-0500 Systolic blood pressure 128 mm[Hg] Tomasz Ace Jr., DPM Work Phone: [facility] 09-29-2023 15:14-0400 Body height 167.[address] Aleena London Work Phone: [facility] 09-29-2023 15:14-0400 Body mass index (BMI) [Ratio] 38.6 kg/m2 Dr. Aleena London Work Phone: [facility] 09-29-2023 15:14-0400 Body temperature 97 [degF] Dr. Aleena London Work Phone: [facility] 09-29-2023 15:14-0400 Body weight 108.[address] Aleena London Work Phone: [facility] 09-29-2023 15:14-0400 Diastolic blood pressure 90 mm[Hg] Dr. Aleena London Work Phone: [facility] 09-29-2023 15:14-0400 Heart rate 65 /min Dr. Aleena London Work Phone: [facility] 09-29-2023 15:14-0400 Respiratory rate 16 /min Dr. Aleena London Work Phone: [facility] 09-29-2023 15:14-0400 SaO2% (BldA) [Mass fraction] 100 % Dr. Aleena London Work Phone: [facility] 09-29-2023 15:14-0400 Systolic blood pressure 149 mm[Hg] Dr. Aleena London Work Phone: [facility] 09-14-2023 15:11-0400 Body mass index (BMI) [Ratio] 38.3 kg/m2 Dr. Aleena London Work Phone: [facility] 09-14-2023 15:11-0400 Body temperature 98.7 [degF] Dr. Aleena London Work Phone: [facility] 09-14-2023 15:11-0400 Body weight 107.[address] Aleena London Work Phone: [facility] 09-14-2023 15:11-0400 Diastolic blood pressure 82 mm[Hg] Dr. Aleena London Work Phone: [facility] 09-14-2023 15:11-0400 Heart rate 83 /min Dr. Aleena London Work Phone: [facility] 09-14-2023 15:11-0400 Respiratory rate 16 /min Dr. Aleena London Work Phone: [facility] 09-14-2023 15:11-0400 SaO2% (BldA) [Mass fraction] 98 % Dr. Aleena London Work Phone: [facility] 09-14-2023 15:11-0400 Systolic blood pressure 128 mm[Hg] Dr. Aleena London Work Phone: [facility] 09-14-2023 12:10-0400 Body temperature 98.4 [degF] Dr. Aleena London Work Phone: [facility] 09-14-2023 12:10-0400 Diastolic blood pressure 80 mm[Hg] Dr. Aleena London Work Phone: [facility] 09-14-2023 12:10-0400 Heart rate 95 /min Dr. Aleena London Work Phone: [facility] 09-14-2023 12:10-0400 Respiratory rate 12 /min Dr. Aleena London Work Phone: [facility] 09-14-2023 12:10-0400 SaO2% (BldA) [Mass fraction] 98 % Dr. Aleena London Work Phone: [facility] 09-14-2023 12:10-0400 Systolic blood pressure 126 mm[Hg] Dr. Aleena London Work Phone: [facility] 09-11-2023 14:47-0400 Body height 167.[address] Aleena London Work Phone: [facility] 09-11-2023 14:47-0400 Body mass index (BMI) [Ratio] 38.2 kg/m2 Dr. Aleena London Work Phone: [facility] 09-11-2023 14:47-0400 Body temperature 99.4 [degF] Dr. Aleena London Work Phone: [facility] 09-11-2023 14:47-0400 Body weight 107.[address] Aleena London Work Phone: [facility] 09-11-2023 14:47-0400 Diastolic blood pressure 82 mm[Hg] Dr. Aleena London Work Phone: [facility] 09-11-2023 14:47-0400 Heart rate 92 /min Dr. Aleena London Work Phone: [facility] 09-11-2023 14:47-0400 Respiratory rate 14 /min Dr. Aleena London Work Phone: [facility] 09-11-2023 14:47-0400 SaO2% (BldA) [Mass fraction] 99 % Dr. Aleena London Work Phone: [facility] 09-11-2023 14:47-0400 Systolic blood pressure 122 mm[Hg] Dr. Aleena London Work Phone: [facility] 09-05-2023 14:01-0400 Body height 167.[address] Aleena London Work Phone: [facility] 09-05-2023 14:00-0400 Body mass index (BMI) [Ratio] 38 kg/m2 Dr. Aleena London Work Phone: [facility] 09-05-2023 14:00-0400 Body weight 106.[address] Aleena London Work Phone: [facility] 09-05-2023 14:00-0400 Diastolic blood pressure 82 mm[Hg] Dr. Aleena London Work Phone: [facility] 09-05-2023 14:00-0400 Systolic blood pressure 139 mm[Hg] Dr. Aleena London Work Phone: [facility] 09-05-2023 09:46-0400 Body mass index (BMI) [Ratio] 37.8 kg/m2 Dr. Aleena London Work Phone: [facility] 09-05-2023 09:46-0400 Body weight 106.[address] Aleena London Work Phone: [facility] 09-05-2023 09:46-0400 Diastolic blood pressure 75 mm[Hg] Dr. Aleena London Work Phone: [facility] 09-05-2023 09:46-0400 Heart rate 71 /min Dr. Aleena London Work Phone: [facility] 09-05-2023 09:46-0400 SaO2% (BldA) [Mass fraction] 98 % Dr. Aleena London Work Phone: [facility] 09-05-2023 09:46-0400 Systolic blood pressure 113 mm[Hg] Dr. Aleena London Work Phone: [facility] 07-26-2023 00:39-0500 Respiratory rate 18 /min Dr. Aleena London Work Phone: [facility] 07-25-2023 19:13-0500 Body height 167.[address] Aleena London Work Phone: [facility] 07-25-2023 19:13-0500 Body mass index (BMI) [Ratio] 37.9 kg/m2 Dr. Aleena London Work Phone: [facility] 07-25-2023 19:13-0500 Body temperature 98 [degF] Dr. Aleena London Work Phone: [facility] 07-25-2023 19:13-0500 Body weight 106.[address] Aleena London Work Phone: [facility] 07-25-2023 19:13-0500 Diastolic blood pressure 84 mm[Hg] Dr. Aleena London Work Phone: [facility] 07-25-2023 19:13-0500 Heart rate 85 /min Dr. Aleena London Work Phone: [facility] 07-25-2023 19:13-0500 SaO2% (BldA) [Mass fraction] 100 % Dr. Aleena London Work Phone: [facility] 07-25-2023 19:13-0500 Systolic blood pressure 122 mm[Hg] Dr. Aleena London Work Phone: [facility] 07-18-2023 23:43-0500 Body temperature 98 [degF] Dr. Aleena London Work Phone: [facility] 07-18-2023 23:43-0500 Diastolic blood pressure 83 mm[Hg] Dr. Aleena London Work Phone: [facility] 07-18-2023 23:43-0500 Heart rate 74 /min Dr. Aleena London Work Phone: [facility] 07-18-2023 23:43-0500 Respiratory rate 16 /min Dr. Aleena London Work Phone: [facility] 07-18-2023 23:43-0500 SaO2% (BldA) [Mass fraction] 96 % Dr. Aleena London Work Phone: [facility] 07-18-2023 23:43-0500 Systolic blood pressure 120 mm[Hg] Dr. Aleena London Work Phone: [facility] 07-18-2023 20:12-0500 Body height 167.[address] Aleena London Work Phone: [facility] 07-18-2023 20:12-0500 Body mass index (BMI) [Ratio] 37.1 kg/m2 Dr. Aleena London Work Phone: [facility] 07-18-2023 20:12-0500 Body weight 104.[address] Aleena London Work Phone: [facility] 07-18-2023 11:04-0500 Body mass index (BMI) [Ratio] 37.5 kg/m2 Dr. Aleena London Work Phone: [facility] 07-18-2023 11:04-0500 Body weight 105.[address] Aleena London Work Phone: [facility] 07-18-2023 11:04-0500 Diastolic blood pressure 74 mm[Hg] Dr. Aleena London Work Phone: [facility] 07-18-2023 11:04-0500 Systolic blood pressure 112 mm[Hg] Dr. Aleena London Work Phone: [facility] 07-13-2023 12:29-0500 Body temperature 99 [degF] Dr. Aleena London Work Phone: [facility] 07-13-2023 12:29-0500 Diastolic blood pressure 82 mm[Hg] Dr. Aleena London Work Phone: [facility] 07-13-2023 12:29-0500 Heart rate 109 /min Dr. Aleena London Work Phone: [facility] 07-13-2023 12:29-0500 Respiratory rate 12 /min Dr. Aleena London Work Phone: [facility] 07-13-2023 12:29-0500 SaO2% (BldA) [Mass fraction] 98 % Dr. Aleena London Work Phone: [facility] 07-13-2023 12:29-0500 Systolic blood pressure 122 mm[Hg] Dr. Aleena London Work Phone: [facility] 07-04-2023 14:23-0500 Body mass index (BMI) [Ratio] 38 kg/m2 Dr. Aleena London Work Phone: [facility] 07-04-2023 14:23-0500 Body temperature 97.5 [degF] Dr. Aleena London Work Phone: [facility] 07-04-2023 14:23-0500 Body weight 106.[address] Aleena London Work Phone: [facility] 07-04-2023 14:23-0500 Diastolic blood pressure 62 mm[Hg] Dr. Aleena London Work Phone: [facility] 07-04-2023 14:23-0500 Heart rate 82 /min Dr. Aleena London Work Phone: [facility] 07-04-2023 14:23-0500 Respiratory rate 16 /min Dr. Aleena London Work Phone: [facility] 07-04-2023 14:23-0500 SaO2% (BldA) [Mass fraction] 99 % Dr. Aleena London Work Phone: [facility] 07-04-2023 14:23-0500 Systolic blood pressure 122 mm[Hg] Dr. Aleena London Work Phone: [facility] 06-29-2023 09:42-0500 Body mass index (BMI) [Ratio] 60.7 kg/m2 Dr. Aleena London Work Phone: [facility] 06-29-2023 09:42-0500 Body temperature 97.9 [degF] Dr. Aleena London Work Phone: [facility] 06-29-2023 09:42-0500 Body weight 170.[address] Aleena London Work Phone: [facility] 06-29-2023 09:42-0500 Diastolic blood pressure 78 mm[Hg] Dr. Aleena London Work Phone: [facility] 06-29-2023 09:42-0500 Heart rate 94 /min Dr. Aleena London Work Phone: [facility] 06-29-2023 09:42-0500 Respiratory rate 16 /min Dr. Aleena London Work Phone: [facility] 06-29-2023 09:42-0500 SaO2% (BldA) [Mass fraction] 100 % Dr. Aleena London Work Phone: [facility] 06-29-2023 09:42-0500 Systolic blood pressure 136 mm[Hg] Dr. Aleena London Work Phone: [facility] 05-04-2023 12:50-0500 Diastolic blood pressure 77 mm[Hg] Dr. Aleena London Work Phone: [facility] 05-04-2023 12:50-0500 Heart rate 71 /min Dr. Aleena London Work Phone: [facility] 05-04-2023 12:50-0500 Respiratory rate 16 /min Dr. Aleena London Work Phone: [facility] 05-04-2023 12:50-0500 Systolic blood pressure 117 mm[Hg] Dr. Aleena London Work Phone: [facility] 05-04-2023 12:19-0500 Body height 167.[address] Aleena London Work Phone: [facility] 05-04-2023 12:19-0500 Body mass index (BMI) [Ratio] 37.5 kg/m2 Dr. Aleena London Work Phone: [facility] 05-04-2023 12:19-0500 Body temperature 98.3 [degF] Dr. Aleena London Work Phone: [facility] 05-04-2023 12:19-0500 Body weight 105.[address] Aleena London Work Phone: [facility] 05-04-2023 12:19-0500 SaO2% (BldA) [Mass fraction] 100 % Dr. Aleena London Work Phone: [facility] 04-19-2023 11:12-0500 Body mass index (BMI) [Ratio] 37.5 kg/m2 Dr. Aleena London Work Phone: [facility] 04-19-2023 11:12-0500 Body temperature 98.7 [degF] Dr. Aleena London Work Phone: [facility] 04-19-2023 11:12-0500 Body weight 105.[address] Aleena London Work Phone: [facility] 04-19-2023 11:12-0500 Diastolic blood pressure 86 mm[Hg] Dr. Aleena London Work Phone: [facility] 04-19-2023 11:12-0500 Heart rate 85 /min Dr. Aleena London Work Phone: [facility] 04-19-2023 11:12-0500 Respiratory rate 16 /min Dr. Aleena London Work Phone: [facility] 04-19-2023 11:12-0500 SaO2% (BldA) [Mass fraction] 98 % Dr. Aleena London Work Phone: [facility] 04-19-2023 11:12-0500 Systolic blood pressure 122 mm[Hg] Dr. Aleena London Work Phone: [facility] 04-17-2023 13:09-0500 Body height 167.[address] Aleena London Work Phone: [facility] 04-17-2023 13:09-0500 Body mass index (BMI) [Ratio] 37.8 kg/m2 Dr. Aleena London Work Phone: [facility] 04-17-2023 13:09-0500 Body temperature 95.9 [degF] Dr. Aleena London Work Phone: [facility] 04-17-2023 13:09-0500 Body weight 106.[address] Aleena London Work Phone: [facility] 04-17-2023 13:09-0500 Diastolic blood pressure 94 mm[Hg] Dr. Aleena London Work Phone: [facility] 04-17-2023 13:09-0500 Heart rate 107 /min Dr. Aleena London Work Phone: [facility] 04-17-2023 13:09-0500 Respiratory rate 18 /min Dr. Aleena London Work Phone: [facility] 04-17-2023 13:09-0500 SaO2% (BldA) [Mass fraction] 100 % Dr. Aleena London Work Phone: [facility] 04-17-2023 13:09-0500 Systolic blood pressure 145 mm[Hg] Dr. Aleena London Work Phone: [facility] 04-06-2023 14:05-0500 Body height 167.[address] Aleena London Work Phone: [facility] 04-06-2023 14:03-0500 Body mass index (BMI) [Ratio] 37.8 kg/m2 Dr. Aleena London Work Phone: [facility] 04-06-2023 14:03-0500 Body weight 106.[address] Aleena London Work Phone: [facility] 04-06-2023 14:03-0500 Diastolic blood pressure 88 mm[Hg] Dr. Aleena London Work Phone: [facility] 04-06-2023 14:03-0500 Systolic blood pressure 124 mm[Hg] Dr. Aleena London Work Phone: [facility] 03-16-2023 08:15-0400 Body height 167.[address] Aleena London Work Phone: [facility] 03-07-2023 14:41-0400 Body temperature 99 [degF] Dr. Aleena London Work Phone: [facility] 03-07-2023 14:41-0400 Diastolic blood pressure 82 mm[Hg] Dr. Aleena London Work Phone: [facility] 03-07-2023 14:41-0400 Heart rate 82 /min Dr. Aleena London Work Phone: [facility] 03-07-2023 14:41-0400 Respiratory rate 17 /min Dr. Aleena London Work Phone: [facility] 03-07-2023 14:41-0400 SaO2% (BldA) [Mass fraction] 98 % Dr. Aleena London Work Phone: [facility] 03-07-2023 14:41-0400 Systolic blood pressure 125 mm[Hg] Dr. Aleena London Work Phone: [facility] 02-14-2023 08:24-0400 Body temperature 98.9 [degF] Dr. Aleena London Work Phone: [facility] 02-14-2023 08:24-0400 Diastolic blood pressure 71 mm[Hg] Dr. Aleena London Work Phone: [facility] 02-14-2023 08:24-0400 Heart rate 82 /min Dr. Aleena London Work Phone: [facility] 02-14-2023 08:24-0400 Respiratory rate 16 /min Dr. Aleena London Work Phone: [facility] 02-14-2023 08:24-0400 SaO2% (BldA) [Mass fraction] 98 % Dr. Aleena London Work Phone: [facility] 02-14-2023 08:24-0400 Systolic blood pressure 117 mm[Hg] Dr. Aleena London Work Phone: [facility] 02-14-2023 07:13-0400 Body height 167.[address] Aleena London Work Phone: [facility] 02-14-2023 07:13-0400 Body mass index (BMI) [Ratio] 36.3 kg/m2 Dr. Aleena London Work Phone: [facility] 02-14-2023 07:13-0400 Body weight [address] Aleena London Work Phone: [facility] 02-10-2023 09:57-0400 Body mass index (BMI) [Ratio] 36.8 kg/m2 Dr. Aleena London Work Phone: [facility] 02-10-2023 09:57-0400 Body weight 103.[address] Aleena London Work Phone: [facility] 02-10-2023 09:57-0400 Diastolic blood pressure 74 mm[Hg] Dr. Aleena London Work Phone: [facility] 02-10-2023 09:57-0400 Systolic blood pressure 123 mm[Hg] Dr. Aleena London Work Phone: [facility] 02-08-2023 23:04-0400 Diastolic blood pressure 74 mm[Hg] Dr. Aleena London Work Phone: [facility] 02-08-2023 23:04-0400 Heart rate 81 /min Dr. Aleena London Work Phone: [facility] 02-08-2023 23:04-0400 Respiratory rate 16 /min Dr. Aleena London Work Phone: [facility] 02-08-2023 23:04-0400 SaO2% (BldA) [Mass fraction] 99 % Dr. Aleena London Work Phone: [facility] 02-08-2023 23:04-0400 Systolic blood pressure 128 mm[Hg] Dr. Aleena London Work Phone: [facility] 02-08-2023 17:51-0400 Body height 167.[address] Aleena London Work Phone: [facility] 02-08-2023 17:51-0400 Body mass index (BMI) [Ratio] 36.4 kg/m2 Dr. Aleena London Work Phone: [facility] 02-08-2023 17:51-0400 Body temperature 97.5 [degF] Dr. Aleena London Work Phone: [facility] 02-08-2023 17:51-0400 Body weight 102.[address] Aleena London Work Phone: [facility] 02-04-2023 20:12-0400 Respiratory rate 16 /min Dr. Aleena London Work Phone: [facility] 02-04-2023 18:44-0400 Body height 167.[address] Aleena London Work Phone: [facility] 02-04-2023 18:44-0400 Body mass index (BMI) [Ratio] 36.4 kg/m2 Dr. Aleena London Work Phone: [facility] 02-04-2023 18:44-0400 Body temperature 97.6 [degF] Dr. Aleena London Work Phone: [facility] 02-04-2023 18:44-0400 Body weight 102.[address] Aleena London Work Phone: [facility] 02-04-2023 18:44-0400 Diastolic blood pressure 89 mm[Hg] Dr. Aleena London Work Phone: [facility] 02-04-2023 18:44-0400 Heart rate 88 /min Dr. Aleena London Work Phone: [facility] 02-04-2023 18:44-0400 SaO2% (BldA) [Mass fraction] 100 % Dr. Aleena London Work Phone: [facility] 02-04-2023 18:44-0400 Systolic blood pressure 125 mm[Hg] Dr. Aleena London Work Phone: [facility] 01-16-2023 09:13-0400 Body mass index (BMI) [Ratio] 36.5 kg/m2 Dr. Aleena London Work Phone: [facility] 01-16-2023 09:13-0400 Body temperature 95.5 [degF] Dr. Aleena London Work Phone: [facility] 01-16-2023 09:13-0400 Body weight 102.[address] Aleena London Work Phone: [facility] 01-16-2023 09:13-0400 Diastolic blood pressure 86 mm[Hg] Dr. Aleena London Work Phone: [facility] 01-16-2023 09:13-0400 Heart rate 96 /min Dr. Aleena London Work Phone: [facility] 01-16-2023 09:13-0400 Respiratory rate 18 /min Dr. Aleena London Work Phone: [facility] 01-16-2023 09:13-0400 SaO2% (BldA) [Mass fraction] 98 % Dr. Aleena London Work Phone: [facility] 01-16-2023 09:13-0400 Systolic blood pressure 134 mm[Hg] Dr. Aleena London Work Phone: [facility] 12-25-2022 12:31-0400 Body height 167.[address] Aleena London Work Phone: [facility] 12-25-2022 12:31-0400 Body mass index (BMI) [Ratio] 36.3 kg/m2 Dr. Aleena London Work Phone: [facility] 12-25-2022 12:31-0400 Body temperature 97.1 [degF] Dr. Aleena oLndon Work Phone: [facility] 12-25-2022 12:31-0400 Body weight 102.[address] Aleena London Work Phone: [facility] 12-25-2022 12:31-0400 Diastolic blood pressure 124 mm[Hg] Dr. Aleena London Work Phone: [facility] 12-25-2022 12:31-0400 Heart rate 90 /min Dr. Aleena London Work Phone: [facility] 12-25-2022 12:31-0400 Respiratory rate 18 /min Dr. Aleena London Work Phone: [facility] 12-25-2022 12:31-0400 SaO2% (BldA) [Mass fraction] 100 % Dr. Aleena London Work Phone: [facility] 12-25-2022 12:31-0400 Systolic blood pressure 145 mm[Hg] Dr. Aleena London Work Phone: [facility] 12-15-2022 10:30-0400 Body height 167.[address] Aleena London Work Phone: [facility] 12-15-2022 10:30-0400 Body mass index (BMI) [Ratio] 36.1 kg/m2 Dr. Aleena London Work Phone: [facility] 12-15-2022 10:30-0400 Body weight 101.[address] Aleena London Work Phone: [facility] 12-15-2022 10:30-0400 Diastolic blood pressure 80 mm[Hg] Dr. Aleena London Work Phone: [facility] 12-15-2022 10:30-0400 Systolic blood pressure 125 mm[Hg] Dr. Aleena London Work Phone: [facility] 12-08-2022 11:55-0400 Body mass index (BMI) [Ratio] 35.7 kg/m2 Dr. Aleena London Work Phone: [facility] 12-08-2022 11:55-0400 Body weight 100.[address] Aleena London Work Phone: [facility] 12-08-2022 11:55-0400 Diastolic blood pressure 85 mm[Hg] Dr. Aleena London Work Phone: [facility] 12-08-2022 11:55-0400 Systolic blood pressure 121 mm[Hg] Dr. Aleena London Work Phone: [facility] 11-19-2022 20:47-0400 Body height 167.[address] Aleena London Work Phone: [facility] 11-19-2022 20:47-0400 Body mass index (BMI) [Ratio] 36.1 kg/m2 Dr. Aleena London Work Phone: [facility] 11-19-2022 20:47-0400 Body temperature 97.6 [degF] Dr. Aleena London Work Phone: [facility] 11-19-2022 20:47-0400 Body weight 101.[address] Aleena London Work Phone: [facility] 11-19-2022 20:47-0400 Diastolic blood pressure 94 mm[Hg] Dr. Aleena London Work Phone: [facility] 11-19-2022 20:47-0400 Heart rate 99 /min Dr. Aleena London Work Phone: [facility] 11-19-2022 20:47-0400 Respiratory rate 14 /min Dr. Aleena London Work Phone: [facility] 11-19-2022 20:47-0400 SaO2% (BldA) [Mass fraction] 100 % Dr. Aleena London Work Phone: [facility] 11-19-2022 20:47-0400 Systolic blood pressure 130 mm[Hg] Dr. Aleena London Work Phone: [facility] 11-16-2022 10:43-0400 Body height 167.6 cm Lukasz Eubanks MD Work Phone: [facility] 11-16-2022 10:43-0400 Body temperature 98.6 [degF] Lukasz Eubanks MD Work Phone: [facility] 11-16-2022 10:43-0400 Body weight 102.06 kg Lukasz Eubanks MD Work Phone: [facility] 11-16-2022 10:43-0400 Diastolic blood pressure 90 mm[Hg] Lukasz Eubanks MD Work Phone: [facility] 11-16-2022 10:43-0400 Heart rate 79 /min Lukasz Eubanks MD Work Phone: [facility] 11-16-2022 10:43-0400 SaO2% (BldA) [Mass fraction] 100 % Lukasz Eubanks MD Work Phone: [facility] 11-16-2022 10:43-0400 Systolic blood pressure 125 mm[Hg] Lukasz Eubanks MD Work Phone: [facility] 11-08-2022 16:37-0400 Body height 167.[address] Aleena London Work Phone: [facility] 11-08-2022 16:37-0400 Body mass index (BMI) [Ratio] 36.2 kg/m2 Dr. Aleena London Work Phone: [facility] 11-08-2022 16:37-0400 Body temperature 96.5 [degF] Dr. Aleena London Work Phone: [facility] 11-08-2022 16:37-0400 Body weight 101.[address] Aleena London Work Phone: [facility] 11-08-2022 16:37-0400 Diastolic blood pressure 100 mm[Hg] Dr. Aleena London Work Phone: [facility] 11-08-2022 16:37-0400 Heart rate 100 /min Dr. Aleena London Work Phone: [facility] 11-08-2022 16:37-0400 Respiratory rate 18 /min Dr. Aleena London Work Phone: [facility] 11-08-2022 16:37-0400 SaO2% (BldA) [Mass fraction] 93 % Dr. Aleena London Work Phone: [facility] 11-08-2022 16:37-0400 Systolic blood pressure 114 mm[Hg] Dr. Aleena London Work Phone: [facility] 09-02-2022 10:43-0400 Body height 167.[address] Aleena London Work Phone: [facility] 09-02-2022 10:43-0400 Body mass index (BMI) [Ratio] 35.6 kg/m2 Dr. Aleena London Work Phone: [facility] 09-02-2022 10:43-0400 Body temperature 99.5 [degF] Dr. Aleena London Work Phone: [facility] 09-02-2022 10:43-0400 Body weight 100.[address] Aleena London Work Phone: [facility] 09-02-2022 10:43-0400 Diastolic blood pressure 74 mm[Hg] Dr. Aleena London Work Phone: [facility] 09-02-2022 10:43-0400 Heart rate 90 /min Dr. Aleena London Work Phone: [facility] 09-02-2022 10:43-0400 Respiratory rate 16 /min Dr. Aleena London Work Phone: [facility] 09-02-2022 10:43-0400 SaO2% (BldA) [Mass fraction] 98 % Dr. Aleena London Work Phone: [facility] 09-02-2022 10:43-0400 Systolic blood pressure 120 mm[Hg] Dr. Aleena London Work Phone: [facility] 08-26-2022 16:47-0400 Respiratory rate 18 /min Dr. Aleena London Work Phone: [facility] 08-26-2022 15:00-0400 Body mass index (BMI) [Ratio] 36.4 kg/m2 Dr. Aleena London Work Phone: [facility] 08-26-2022 15:00-0400 Body temperature 97.7 [degF] Dr. Aleena London Work Phone: [facility] 08-26-2022 15:00-0400 Body weight 102.[address] Aleena London Work Phone: [facility] 08-26-2022 15:00-0400 Diastolic blood pressure 93 mm[Hg] Dr. Aleena London Work Phone: [facility] 08-26-2022 15:00-0400 Heart rate 97 /min Dr. Aleena London Work Phone: [facility] 08-26-2022 15:00-0400 SaO2% (BldA) [Mass fraction] 100 % Dr. Aleena London Work Phone: [facility] 08-26-2022 15:00-0400 Systolic blood pressure 131 mm[Hg] Dr. Aleena London Work Phone: [facility] 08-22-2022 10:08-0400 Body mass index (BMI) [Ratio] 36.4 kg/m2 Dr. Aleena London Work Phone: [facility] 08-22-2022 10:08-0400 Body temperature 97.6 [degF] Dr. Aleena London Work Phone: [facility] 08-22-2022 10:08-0400 Body weight 102.[address] Aleena London Work Phone: [facility] 08-22-2022 10:08-0400 Diastolic blood pressure 80 mm[Hg] Dr. Aleena London Work Phone: [facility] 08-22-2022 10:08-0400 Heart rate 84 /min Dr. Aleena London Work Phone: [facility] 08-22-2022 10:08-0400 Respiratory rate 18 /min Dr. Aleena London Work Phone: [facility] 08-22-2022 10:08-0400 SaO2% (BldA) [Mass fraction] 96 % Dr. Aleena London Work Phone: [facility] 08-22-2022 10:08-0400 Systolic blood pressure 136 mm[Hg] Dr. Aleena London Work Phone: [facility] 08-18-2022 00:17-0400 Diastolic blood pressure 80 mm[Hg] Dr. Aleena London Work Phone: [facility] 08-18-2022 00:17-0400 Heart rate 81 /min Dr. Aleena London Work Phone: [facility] 08-18-2022 00:17-0400 Respiratory rate 16 /min Dr. Aleena London Work Phone: [facility] 08-18-2022 00:17-0400 SaO2% (BldA) [Mass fraction] 98 % Dr. Aleena London Work Phone: [facility] 08-18-2022 00:17-0400 Systolic blood pressure 130 mm[Hg] Dr. Aleena London Work Phone: [facility] 08-17-2022 21:13-0400 Body mass index (BMI) [Ratio] 36.7 kg/m2 Dr. Aleena London Work Phone: [facility] 08-17-2022 21:13-0400 Body temperature 96.6 [degF] Dr. Aleena London Work Phone: [facility] 08-17-2022 21:13-0400 Body weight 103.[address] Aleena London Work Phone: [facility] 08-15-2022 17:17-0400 Diastolic Blood Pressure Non-Invasive 82 1 ALAN QUINN DO [facility] 08-15-2022 17:17-0400 Heart rate 90 /min ALAN QUINN DO [facility] 08-15-2022 17:17-0400 Respiratory rate 18 /min ALAN QUINN DO [facility] 08-15-2022 17:17-0400 Systolic Blood Pressure Non-Invasive 154 1 ALAN QUINN DO [facility] 08-15-2022 16:04-0400 Body height 167.6 cm ALAN QUINN DO [facility] 08-15-2022 16:04-0400 Body temperature 99.14 [degF] ALAN QUINN DO [facility] 08-15-2022 16:04-0400 Body weight 103.5 kg ALAN QUNIN DO [facility] 08-15-2022 16:04-0400 Diastolic Blood Pressure Non-Invasive 79 1 ALAN QUINN DO [facility] 08-15-2022 16:04-0400 Heart rate 108 /min ALAN QUINN DO [facility] 08-15-2022 16:04-0400 Respiratory rate 20 /min ALAN QUINN DO [facility] 08-15-2022 16:04-0400 Systolic Blood Pressure Non-Invasive 125 1 ALAN QUINN DO [facility] 08-08-2022 11:35-0400 Body mass index (BMI) [Ratio] 37 kg/m2 Dr. Aleena London Work Phone: [facility] 08-08-2022 11:35-0400 Body weight 103.[address] Aleena London Work Phone: [facility] 08-08-2022 11:35-0400 Diastolic blood pressure 72 mm[Hg] Dr. Aleena London Work Phone: [facility] 08-08-2022 11:35-0400 Systolic blood pressure 114 mm[Hg] Dr. Aleena London Work Phone: [facility] 07-17-2022 20:31-0500 Diastolic blood pressure 81 mm[Hg] Dr. Aleena London Work Phone: [facility] 07-17-2022 20:31-0500 Heart rate 83 /min Dr. Aleena London Work Phone: [facility] 07-17-2022 20:31-0500 Respiratory rate 24 /min Dr. Aleena London Work Phone: [facility] 07-17-2022 20:31-0500 SaO2% (BldA) [Mass fraction] 121 % Dr. Aleena London Work Phone: [facility] 07-17-2022 20:31-0500 Systolic blood pressure 121 mm[Hg] Dr. Aleena London Work Phone: [facility] 07-17-2022 18:22-0500 Body height 167.[address] Aleena London Work Phone: [facility] 07-17-2022 18:22-0500 Body mass index (BMI) [Ratio] 36.8 kg/m2 Dr. Aleena London Work Phone: [facility] 07-17-2022 18:22-0500 Body temperature 98.2 [degF] Dr. Aleena London Work Phone: [facility] 07-17-2022 18:22-0500 Body weight 103.[address] Aleena London Work Phone: [facility] 07-14-2022 14:08-0500 Body mass index (BMI) [Ratio] 37.3 kg/m2 Dr. Aleena London Work Phone: [facility] 07-14-2022 14:08-0500 Body weight 104.[address] Aleena London Work Phone: [facility] 07-14-2022 14:08-0500 Diastolic blood pressure 84 mm[Hg] Dr. Aleena London Work Phone: [facility] 07-14-2022 14:08-0500 Heart rate 101 /min Dr. Aleena London Work Phone: [facility] 07-14-2022 14:08-0500 SaO2% (BldA) [Mass fraction] 97 % Dr. Aleena London Work Phone: [facility] 07-14-2022 14:08-0500 Systolic blood pressure 130 mm[Hg] Dr. Aleena London Work Phone: [facility] 06-29-2022 08:10-0500 Body height 167.[address] Aleena London Work Phone: [facility] 06-29-2022 08:10-0500 Body mass index (BMI) [Ratio] 37.5 kg/m2 Dr. Aleena London Work Phone: [facility] 06-29-2022 08:10-0500 Body temperature 98.8 [degF] Dr. Aleena London Work Phone: [facility] 06-29-2022 08:10-0500 Body weight 105.[address] Aleena London Work Phone: [facility] 06-29-2022 08:10-0500 Diastolic blood pressure 86 mm[Hg] Dr. Aleena London Work Phone: [facility] 06-29-2022 08:10-0500 Heart rate 76 /min Dr. Aleena London Work Phone: [facility] 06-29-2022 08:10-0500 Respiratory rate 18 /min Dr. Aleena London Work Phone: [facility] 06-29-2022 08:10-0500 SaO2% (BldA) [Mass fraction] 97 % Dr. Aleena London Work Phone: [facility] 06-29-2022 08:10-0500 Systolic blood pressure 124 mm[Hg] Dr. Aleena London Work Phone: [facility] 06-10-2022 09:10-0500 Body height 167.[address] Aleena London Work Phone: [facility] 06-10-2022 09:10-0500 Body mass index (BMI) [Ratio] 36.8 kg/m2 Dr. Aleena London Work Phone: [facility] 06-10-2022 09:10-0500 Body temperature 98.1 [degF] Dr. Aleena London Work Phone: [facility] 06-10-2022 09:10-0500 Body weight 103.[address] Aleena London Work Phone: [facility] 06-10-2022 09:10-0500 Diastolic blood pressure 127 mm[Hg] Dr. Aleena London Work Phone: [facility] 06-10-2022 09:10-0500 Heart rate 96 /min Dr. Aleena London Work Phone: [facility] 06-10-2022 09:10-0500 Respiratory rate 15 /min Dr. Aleena London Work Phone: [facility] 06-10-2022 09:10-0500 SaO2% (BldA) [Mass fraction] 100 % Dr. Aleena London Work Phone: [facility] 06-10-2022 09:10-0500 Systolic blood pressure 142 mm[Hg] Dr. Aleena London Work Phone: [facility] 05-30-2022 09:42-0500 Body mass index (BMI) [Ratio] 36.9 kg/m2 Dr. Aleena London Work Phone: [facility] 05-30-2022 09:42-0500 Body temperature 98.1 [degF] Dr. Aleena London Work Phone: [facility] 05-30-2022 09:42-0500 Body weight 103.[address] Aleena London Work Phone: [facility] 05-30-2022 09:42-0500 Diastolic blood pressure 74 mm[Hg] Dr. Aleena London Work Phone: [facility] 05-30-2022 09:42-0500 Heart rate 82 /min Dr. Aleena London Work Phone: [facility] 05-30-2022 09:42-0500 Respiratory rate 14 /min Dr. Aleena London Work Phone: [facility] 05-30-2022 09:42-0500 SaO2% (BldA) [Mass fraction] 99 % Dr. Aleena London Work Phone: [facility] 05-30-2022 09:42-0500 Systolic blood pressure 126 mm[Hg] Dr. Aleena London Work Phone: [facility] 05-24-2022 08:46-0500 Body mass index (BMI) [Ratio] 37.1 kg/m2 Dr. Aleena London Work Phone: [facility] 05-24-2022 08:46-0500 Body temperature 97.8 [degF] Dr. Aleena London Work Phone: [facility] 05-24-2022 08:46-0500 Body weight 104.[address] Aleena London Work Phone: [facility] 05-24-2022 08:46-0500 Diastolic blood pressure 84 mm[Hg] Dr. Aleena London Work Phone: [facility] 05-24-2022 08:46-0500 Heart rate 89 /min Dr. Aleena London Work Phone: [facility] 05-24-2022 08:46-0500 Respiratory rate 20 /min Dr. Aleena London Work Phone: [facility] 05-24-2022 08:46-0500 SaO2% (BldA) [Mass fraction] 99 % Dr. Aleena London Work Phone: [facility] 05-24-2022 08:46-0500 Systolic blood pressure 129 mm[Hg] Dr. Aleena London Work Phone: [facility] 05-23-2022 02:21-0500 Diastolic blood pressure 82 mm[Hg] Dr. Aleena London Work Phone: [facility] 05-23-2022 02:21-0500 Heart rate 77 /min Dr. Aleena London Work Phone: [facility] 05-23-2022 02:21-0500 Respiratory rate 15 /min Dr. Aleena London Work Phone: [facility] 05-23-2022 02:21-0500 SaO2% (BldA) [Mass fraction] 99 % Dr. Aleena London Work Phone: [facility] 05-23-2022 02:21-0500 Systolic blood pressure 122 mm[Hg] Dr. Aleena London Work Phone: [facility] 05-22-2022 23:54-0500 Body height 167.[address] Aleena London Work Phone: [facility] Work Phone: 05-22-2022 23:54-0500 Body mass index (BMI) [Ratio] 37.3 kg/m2 Dr. Alenea London Work Phone: [facility] 05-22-2022 23:54-0500 Body temperature 98 [degF] Dr. Aleena London Work Phone: [facility] 05-22-2022 23:54-0500 Body weight [address] Aleena London Work Phone: [facility] 05-04-2022 13:18-0500 Body mass index (BMI) [Ratio] 36.6 kg/m2 Dr. Aleena London Work Phone: [facility] 05-04-2022 13:18-0500 Body weight 102.[address] Aleena London Work Phone: [facility] 05-04-2022 13:18-0500 Diastolic blood pressure 82 mm[Hg] Dr. Aleena London Work Phone: [facility] 05-04-2022 13:18-0500 Systolic blood pressure 121 mm[Hg] Dr. Aleena London Work Phone: [facility] 04-20-2022 11:47-0500 Body mass index (BMI) [Ratio] 37.8 kg/m2 Dr. Aleena London Work Phone: [facility] 04-20-2022 11:47-0500 Body weight 103.[address] Aleena London Work Phone: [facility] 04-20-2022 11:47-0500 Diastolic blood pressure 71 mm[Hg] Dr. Aleena London Work Phone: [facility] 04-20-2022 11:47-0500 Systolic blood pressure 111 mm[Hg] Dr. lAeena London Work Phone: [facility] 04-18-2022 17:09-0500 Body height 165.[address] Aleena London Work Phone: [facility] Work Phone: 04-18-2022 17:09-0500 Body mass index (BMI) [Ratio] 37.6 kg/m2 Dr. Aleena London Work Phone: [facility] 04-18-2022 17:09-0500 Body temperature 97.7 [degF] Dr. Aleena London Work Phone: [facility] 04-18-2022 17:09-0500 Body weight 102.[address] Aleena London Work Phone: [facility] 04-18-2022 17:09-0500 Diastolic blood pressure 76 mm[Hg] Dr. Aleena London Work Phone: [facility] 04-18-2022 17:09-0500 Heart rate 102 /min Dr. Aleena London Work Phone: [facility] 04-18-2022 17:09-0500 Respiratory rate 14 /min Dr. Aleena London Work Phone: [facility] 04-18-2022 17:09-0500 SaO2% (BldA) [Mass fraction] 99 % Dr. Aleena London Work Phone: [facility] 04-18-2022 17:09-0500 Systolic blood pressure 123 mm[Hg] Dr. Aleena London Work Phone: [facility] 04-16-2022 09:30-0500 Body temperature 97.8 [degF] Dr. Aleena London Work Phone: [facility] 04-16-2022 09:30-0500 Diastolic blood pressure 61 mm[Hg] Dr. Aleena London Work Phone: [facility] 04-16-2022 09:30-0500 Heart rate 82 /min Dr. Aleena London Work Phone: [facility] 04-16-2022 09:30-0500 Respiratory rate 17 /min Dr. Aleena London Work Phone: [facility] 04-16-2022 09:30-0500 SaO2% (BldA) [Mass fraction] 100 % Dr. Aleena London Work Phone: [facility] 04-16-2022 09:30-0500 Systolic blood pressure 106 mm[Hg] Dr. Aleena London Work Phone: [facility] 04-16-2022 02:05-0500 Body temperature 98.8 [degF] Dr. Aleena London Work Phone: [facility] Work Phone: 04-16-2022 02:05-0500 Diastolic blood pressure 67 mm[Hg] Dr. Aleena London Work Phone: [facility] Work Phone: 04-16-2022 02:05-0500 Heart rate 93 /min Dr. Aleena London Work Phone: [facility] Work Phone: 04-16-2022 02:05-0500 Respiratory rate 18 /min Dr. Aleena London Work Phone: [facility] Work Phone: 04-16-2022 02:05-0500 SaO2% (BldA) [Mass fraction] 98 % Dr. Aleena London Work Phone: [facility] Work Phone: 04-16-2022 02:05-0500 Systolic blood pressure 125 mm[Hg] Dr. Aleena London Work Phone: [facility] Work Phone: 04-15-2022 09:48-0500 Inhaled oxygen flow rate 6 L/min Dr. Aleena London Work Phone: [facility] 04-14-2022 21:53-0500 Body height 165.[address] Aleena London Work Phone: [facility] Work Phone: 04-14-2022 21:53-0500 Body mass index (BMI) [Ratio] 37.3 kg/m2 Dr. Aleena London Work Phone: [facility] 04-14-2022 21:53-0500 Body weight 101.[address] Aleena London Work Phone: [facility] 04-12-2022 20:13-0500 Body temperature 98.1 [degF] Dr. Aleena London Work Phone: [facility] Work Phone: 04-12-2022 20:13-0500 Diastolic blood pressure 56 mm[Hg] Dr. Aleena London Work Phone: [facility] Work Phone: 04-12-2022 20:13-0500 Heart rate 76 /min Dr. Aleena London Work Phone: [facility] Work Phone: 04-12-2022 20:13-0500 Respiratory rate 15 /min Dr. Aleena London Work Phone: [facility] Work Phone: 04-12-2022 20:13-0500 SaO2% (BldA) [Mass fraction] 97 % Dr. Aleena London Work Phone: [facility] Work Phone: 04-12-2022 20:13-0500 Systolic blood pressure 98 mm[Hg] Dr. Aleena London Work Phone: [facility] Work Phone: 04-12-2022 13:43-0500 Body height 165.[address] Aleena London Work Phone: [facility] Work Phone: 04-12-2022 13:43-0500 Body mass index (BMI) [Ratio] 37.6 kg/m2 Dr. Aleena London Work Phone: [facility] Work Phone: 04-12-2022 13:43-0500 Body weight 102.[address] Aleena London Work Phone: [facility] Work Phone: 04-05-2022 09:31-0500 Body height 167.[address] Aleena London Work Phone: [facility] Work Phone: 04-05-2022 09:31-0500 Body mass index (BMI) [Ratio] 36.4 kg/m2 Dr. Aleena London Work Phone: [facility] 04-05-2022 09:31-0500 Body weight 102.[address] Aleena London Work Phone: [facility] 04-05-2022 09:31-0500 Diastolic blood pressure 74 mm[Hg] Dr. Aleena London Work Phone: [facility] 04-05-2022 09:31-0500 Systolic blood pressure 107 mm[Hg] Dr. Aleena London Work Phone: [facility] 03-30-2022 17:35-0500 Heart rate 82 /min Dr. Aleena London Work Phone: [facility] 03-30-2022 17:35-0500 Respiratory rate 15 /min Dr. Aleena London Work Phone: [facility] 03-30-2022 17:35-0500 SaO2% (BldA) [Mass fraction] 98 % Dr. Aleena London Work Phone: [facility] 03-30-2022 14:04-0500 Body mass index (BMI) [Ratio] 36.9 kg/m2 Dr. Aleena London Work Phone: [facility] 03-30-2022 14:04-0500 Body temperature 97.4 [degF] Dr. Aleena London Work Phone: [facility] 03-30-2022 14:04-0500 Body weight 103.[address] Aleena London Work Phone: [facility] 03-30-2022 14:04-0500 Diastolic blood pressure 83 mm[Hg] Dr. Aleena London Work Phone: [facility] 03-30-2022 14:04-0500 Systolic blood pressure 119 mm[Hg] Dr. Aleena London Work Phone: [facility] 03-30-2022 13:02-0500 Body mass index (BMI) [Ratio] 36.9 kg/m2 Dr. Aleena London Work Phone: [facility] 03-30-2022 13:02-0500 Body weight 103.[address] Aleena London Work Phone: [facility] 03-30-2022 13:02-0500 Diastolic blood pressure 73 mm[Hg] Dr. Aleena London Work Phone: [facility] 03-30-2022 13:02-0500 Systolic blood pressure 118 mm[Hg] Dr. Aleena London Work Phone: [facility] 03-23-2022 11:26-0400 Body temperature 98.2 [degF] Dr. Aleena London Work Phone: [facility] 03-23-2022 11:26-0400 Diastolic blood pressure 65 mm[Hg] Dr. Aleena London Work Phone: [facility] 03-23-2022 11:26-0400 Heart rate 66 /min Dr. Aleena London Work Phone: [facility] 03-23-2022 11:26-0400 Respiratory rate 20 /min Dr. Aleena London Work Phone: [facility] 03-23-2022 11:26-0400 SaO2% (BldA) [Mass fraction] 97 % Dr. Aleena London Work Phone: [facility] 03-23-2022 11:26-0400 Systolic blood pressure 106 mm[Hg] Dr. Aleena London Work Phone: [facility] 03-22-2022 18:30-0400 Inhaled oxygen flow rate 4 L/min Dr. Aleena London Work Phone: [facility] 03-22-2022 17:41-0400 Body height 167.[address] Aleena London Work Phone: [facility] Work Phone: 03-22-2022 17:41-0400 Body mass index (BMI) [Ratio] 38.4 kg/m2 Dr. Aleena London Work Phone: [facility] 03-22-2022 17:41-0400 Body weight [address] Aleena London Work Phone: [facility] 03-12-2022 12:29-0400 Body height 167.[address] Aleena London Work Phone: [facility] Work Phone: 03-12-2022 12:29-0400 Body mass index (BMI) [Ratio] 37.9 kg/m2 Dr. Aleena London Work Phone: [facility] 03-12-2022 12:29-0400 Body temperature 98.1 [degF] Dr. Aleena London Work Phone: [facility] 03-12-2022 12:29-0400 Body weight 106.[address] Aleena London Work Phone: [facility] 03-12-2022 12:29-0400 Diastolic blood pressure 106 mm[Hg] Dr. Aleena London Work Phone: [facility] 03-12-2022 12:29-0400 Heart rate 119 /min Dr. Aleena London Work Phone: [facility] 03-12-2022 12:29-0400 Respiratory rate 16 /min Dr. Aleena London Work Phone: [facility] 03-12-2022 12:29-0400 SaO2% (BldA) [Mass fraction] 98 % Dr. Aleena London Work Phone: [facility] 03-12-2022 12:29-0400 Systolic blood pressure 157 mm[Hg] Dr. Aleena London Work Phone: [facility] 03-04-2022 16:11-0400 Heart rate 77 /min Dr. Aleena London Work Phone: [facility] 03-04-2022 16:11-0400 Respiratory rate 15 /min Dr. Aleena London Work Phone: [facility] 03-04-2022 16:11-0400 SaO2% (BldA) [Mass fraction] 98 % Dr. Aleena London Work Phone: [facility] 03-04-2022 13:28-0400 Body height 165.[address] Aleena London Work Phone: [facility] Work Phone: 03-04-2022 13:28-0400 Body mass index (BMI) [Ratio] 38.5 kg/m2 Dr. Aleena London Work Phone: [facility] 03-04-2022 13:28-0400 Body temperature 97.2 [degF] Dr. Aleena London Work Phone: [facility] 03-04-2022 13:28-0400 Body weight 104.[address] Aleena London Work Phone: [facility] 03-04-2022 13:28-0400 Diastolic blood pressure 91 mm[Hg] Dr. Aleena London Work Phone: [facility] 03-04-2022 13:28-0400 Systolic blood pressure 156 mm[Hg] Dr. Aleena London Work Phone: [facility] 03-02-2022 13:00-0400 Body mass index (BMI) [Ratio] 37.8 kg/m2 Dr. Aleena London Work Phone: [facility] 03-02-2022 13:00-0400 Body temperature 98.8 [degF] Dr. Aleena London Work Phone: [facility] 03-02-2022 13:00-0400 Body weight 106.[address] Aleena London Work Phone: [facility] 03-02-2022 13:00-0400 Diastolic blood pressure 82 mm[Hg] Dr. Aleena London Work Phone: [facility] 03-02-2022 13:00-0400 Heart rate 89 /min Dr. Aleena London Work Phone: [facility] 03-02-2022 13:00-0400 Respiratory rate 14 /min Dr. Aleena London Work Phone: [facility] 03-02-2022 13:00-0400 SaO2% (BldA) [Mass fraction] 97 % Dr. Aleena London Work Phone: [facility] 03-02-2022 13:00-0400 Systolic blood pressure 134 mm[Hg] Dr. Aleena London Work Phone: [facility] 02-28-2022 11:09-0400 Body temperature 98.7 [degF] Dr. Aleena London Work Phone: [facility] 02-28-2022 11:09-0400 Diastolic blood pressure 74 mm[Hg] Dr. Aleena London Work Phone: [facility] 02-28-2022 11:090400 Heart rate 112 /min Dr. Aleena London Work Phone: [facility] 02-28-2022 11:090400 Respiratory rate 14 /min Dr. Aleena London Work Phone: [facility] 02-28-2022 11:09-0400 SaO2% (BldA) [Mass fraction] 99 % Dr. Aleena London Work Phone: [facility] 02-28-2022 11:09-0400 Systolic blood pressure 126 mm[Hg] Dr. Aleena London Work Phone: [facility] 02-23-2022 10:26-0400 Body height 167.[address] Aleena London Work Phone: [facility] Work Phone: 02-23-2022 10:26-0400 Body mass index (BMI) [Ratio] 37.8 kg/m2 Dr. Aleena London Work Phone: [facility] 02-23-2022 10:26-0400 Body weight 106.[address] Aleena London Work Phone: [facility] 02-23-2022 10:26-0400 Diastolic blood pressure 83 mm[Hg] Dr. Aleena London Work Phone: [facility] 02-23-2022 10:26-0400 Heart rate 80 /min Dr. Aleena London Work Phone: [facility] 02-23-2022 10:26-0400 SaO2% (BldA) [Mass fraction] 96 % Dr. Aleena London Work Phone: [facility] 02-23-2022 10:26-0400 Systolic blood pressure 126 mm[Hg] Dr. Aleena London Work Phone: [facility] 02-15-2022 11:31-0400 Body mass index (BMI) [Ratio] 37.6 kg/m2 Dr. Aleena London Work Phone: [facility] 02-15-2022 11:31-0400 Body temperature 98.1 [degF] Dr. Aleena London Work Phone: [facility] 02-15-2022 11:31-0400 Body weight 105.[address] Aleena London Work Phone: [facility] 02-15-2022 11:31-0400 Diastolic blood pressure 85 mm[Hg] Dr. Aleena London Work Phone: [facility] 02-15-2022 11:31-0400 Heart rate 96 /min Dr. Aleena London Work Phone: [facility] 02-15-2022 11:31-0400 Respiratory rate 18 /min Dr. Aleena London Work Phone: [facility] 02-15-2022 11:31-0400 SaO2% (BldA) [Mass fraction] 100 % Dr. Aleena London Work Phone: [facility] 02-15-2022 11:31-0400 Systolic blood pressure 149 mm[Hg] Dr. Aleena London Work Phone: [facility] 02-15-2022 08:52-0400 Body mass index (BMI) [Ratio] 37.5 kg/m2 Dr. Aleena London Work Phone: [facility] 02-15-2022 08:52-0400 Body weight 105.[address] Aleena London Work Phone: [facility] 02-15-2022 08:52-0400 Diastolic blood pressure 85 mm[Hg] Dr. Aleena London Work Phone: [facility] 02-15-2022 08:52-0400 Systolic blood pressure 120 mm[Hg] Dr. Aleena London Work Phone: [facility] 02-08-2022 14:00-0400 Body mass index (BMI) [Ratio] 37.5 kg/m2 Dr. Aleena London Work Phone: [facility] Work Phone: 02-08-2022 14:00-0400 Body temperature 99 [degF] Dr. Aleena London Work Phone: [facility] Work Phone: 02-08-2022 14:00-0400 Body weight 105.[address] Aleena London Work Phone: [facility] Work Phone: 02-08-2022 14:00-0400 Diastolic blood pressure 86 mm[Hg] Dr. Aleena London Work Phone: [facility] Work Phone: 02-08-2022 14:00-0400 Heart rate 89 /min Dr. Aleena London Work Phone: [facility] Work Phone: 02-08-2022 14:00-0400 Respiratory rate 14 /min Dr. Aleena London Work Phone: [facility] Work Phone: 02-08-2022 14:00-0400 SaO2% (BldA) [Mass fraction] 99 % Dr. Aleena London Work Phone: [facility] Work Phone: 02-08-2022 14:00-0400 Systolic blood pressure 132 mm[Hg] Dr. Aleena London Work Phone: [facility] Work Phone: 12-30-2021 15:28-0400 Body height 167.[address] Aleena London Work Phone: [facility] Work Phone: 12-30-2021 15:28-0400 Body mass index (BMI) [Ratio] 37.5 kg/m2 Dr. Aleena London Work Phone: [facility] Work Phone: 12-30-2021 15:28-0400 Body weight 105.[address] Aleena London Work Phone: [facility] Work Phone: 12-30-2021 15:28-0400 Diastolic blood pressure 82 mm[Hg] Dr. Aleena London Work Phone: [facility] Work Phone: 12-30-2021 15:28-0400 Heart rate 87 /min Dr. Aleena London Work Phone: [facility] Work Phone: 12-30-2021 15:28-0400 SaO2% (BldA) [Mass fraction] 97 % Dr. Aleena London Work Phone: [facility] Work Phone: 12-30-2021 15:28-0400 Systolic blood pressure 138 mm[Hg] Dr. Aleena London Work Phone: [facility] Work Phone: 12-24-2021 00:35-0400 Heart rate 89 /min Dr. Aleena London Work Phone: [facility] Work Phone: 12-24-2021 00:35-0400 Respiratory rate 16 /min Dr. Aleena London Work Phone: [facility] Work Phone: 12-24-2021 00:35-0400 SaO2% (BldA) [Mass fraction] 99 % Dr. Aleena London Work Phone: [facility] Work Phone: 12-23-2021 22:19-0400 Body height 167.[address] Aleena London Work Phone: [facility] Work Phone: 12-23-2021 22:19-0400 Body mass index (BMI) [Ratio] 37.4 kg/m2 Dr. Aleena London Work Phone: [facility] Work Phone: 12-23-2021 22:19-0400 Body temperature 98.1 [degF] Dr. Aleena London Work Phone: [facility] Work Phone: 12-23-2021 22:19-0400 Body weight 105.[address] Aleena London Work Phone: [facility] Work Phone: 12-23-2021 22:19-0400 Diastolic blood pressure 97 mm[Hg] Dr. Aleena London Work Phone: [facility] Work Phone: 12-23-2021 22:19-0400 Systolic blood pressure 139 mm[Hg] Dr. Aleena London Work Phone: [facility] Work Phone: 12-14-2021 10:42-0400 Body mass index (BMI) [Ratio] 37.5 kg/m2 Dr. Aleena London Work Phone: [facility] Work Phone: 12-14-2021 10:42-0400 Body weight 105.[address] Aleena London Work Phone: [facility] Work Phone: 12-14-2021 10:42-0400 Diastolic blood pressure 88 mm[Hg] Dr. Aleena London Work Phone: [facility] Work Phone: 12-14-2021 10:42-0400 Systolic blood pressure 120 mm[Hg] Dr. Aleena London Work Phone: [facility] Work Phone: 11-27-2021 03:46-0400 Diastolic blood pressure 75 mm[Hg] Dr. Aleena London Work Phone: [facility] Work Phone: 11-27-2021 03:46-0400 Heart rate 70 /min Dr. Aleena London Work Phone: [facility] Work Phone: 11-27-2021 03:46-0400 Respiratory rate 15 /min Dr. Aleena London Work Phone: [facility] Work Phone: 11-27-2021 03:46-0400 Systolic blood pressure 125 mm[Hg] Dr. Aleena London Work Phone: [facility] Work Phone: 11-27-2021 01:16-0400 Body height 167.[address] Aleena London Work Phone: [facility] Work Phone: 11-27-2021 01:16-0400 Body mass index (BMI) [Ratio] 38.6 kg/m2 Dr. Aleena London Work Phone: [facility] Work Phone: 11-27-2021 01:16-0400 Body temperature 98.3 [degF] Dr. Aleena London Work Phone: [facility] Work Phone: 11-27-2021 01:16-0400 Body weight 108.[address] Aleena London Work Phone: [facility] Work Phone: 11-27-2021 01:16-0400 SaO2% (BldA) [Mass fraction] 99 % Dr. Aleena London Work Phone: [facility] Work Phone: 11-18-2021 15:03-0400 Body mass index (BMI) [Ratio] 37.8 kg/m2 Dr. Aleena London Work Phone: [facility] Work Phone: 11-18-2021 15:03-0400 Body temperature 98.9 [degF] Dr. Aleena London Work Phone: [facility] Work Phone: 11-18-2021 15:03-0400 Body weight 106.[address] Aleena London Work Phone: [facility] Work Phone: 11-18-2021 15:03-0400 Diastolic blood pressure 78 mm[Hg] Dr. Aleena London Work Phone: [facility] Work Phone: 11-18-2021 15:03-0400 Heart rate 83 /min Dr. Aleena London Work Phone: [facility] Work Phone: 11-18-2021 15:03-0400 Respiratory rate 16 /min Dr. Aleena London Work Phone: [facility] Work Phone: 11-18-2021 15:03-0400 SaO2% (BldA) [Mass fraction] 98 % Dr. Aleena London Work Phone: [facility] Work Phone: 11-18-2021 15:03-0400 Systolic blood pressure 126 mm[Hg] Dr. Aleena London Work Phone: [facility] Work Phone: 11-18-2021 09:43-0400 Body mass index (BMI) [Ratio] 37.6 kg/m2 Dr. Aleena London Work Phone: [facility] Work Phone: 11-18-2021 09:43-0400 Body temperature 98.7 [degF] Dr. Aleena London Work Phone: [facility] Work Phone: 11-18-2021 09:43-0400 Body weight 105.[address] Aleena London Work Phone: [facility] Work Phone: 11-18-2021 09:43-0400 Diastolic blood pressure 76 mm[Hg] Dr. Aleena London Work Phone: [facility] Work Phone: 11-18-2021 09:43-0400 Heart rate 81 /min Dr. Aleena London Work Phone: [facility] Work Phone: 11-18-2021 09:43-0400 Respiratory rate 16 /min Dr. Aleena London Work Phone: [facility] Work Phone: 11-18-2021 09:43-0400 SaO2% (BldA) [Mass fraction] 98 % Dr. Aleena London Work Phone: [facility] Work Phone: 11-18-2021 09:43-0400 Systolic blood pressure 118 mm[Hg] Dr. Aleena London Work Phone: [facility] Work Phone: 11-01-2021 13:12-0400 Body mass index (BMI) [Ratio] 38.2 kg/m2 Dr. Aleena London Work Phone: [facility] Work Phone: 11-01-2021 13:12-0400 Body temperature 99 [degF] Dr. Aleena London Work Phone: [facility] Work Phone: 11-01-2021 13:12-0400 Body weight 107.[address] Aleena London Work Phone: [facility] Work Phone: 11-01-2021 13:12-0400 Diastolic blood pressure 72 mm[Hg] Dr. Aleena London Work Phone: [facility] Work Phone: 11-01-2021 13:12-0400 Heart rate 82 /min Dr. Aleena London Work Phone: [facility] Work Phone: 11-01-2021 13:12-0400 Respiratory rate 16 /min Dr. Aleena London Work Phone: [facility] Work Phone: 11-01-2021 13:12-0400 SaO2% (BldA) [Mass fraction] 98 % Dr. Aleena London Work Phone: [facility] Work Phone: 11-01-2021 13:12-0400 Systolic blood pressure 118 mm[Hg] Dr. Aleena London Work Phone: [facility] Work Phone: 10-29-2021 17:52-0400 Body temperature 100.1 [degF] Dr. Aleena London Work Phone: [facility] Work Phone: 10-29-2021 17:52-0400 Diastolic blood pressure 80 mm[Hg] Dr. Aleena London Work Phone: [facility] Work Phone: 10-29-2021 17:52-0400 Heart rate 105 /min Dr. Aleena London Work Phone: [facility] Work Phone: 10-29-2021 17:52-0400 Respiratory rate 15 /min Dr. Aleena London Work Phone: [facility] Work Phone: 10-29-2021 17:52-0400 SaO2% (BldA) [Mass fraction] 99 % Dr. Aleena London Work Phone: [facility] Work Phone: 10-29-2021 17:52-0400 Systolic blood pressure 150 mm[Hg] Dr. Aleena London Work Phone: [facility] Work Phone: 10-29-2021 17:52-0400 Body temperature 100.1 [degF] Dr. Aleena London Work Phone: [facility] Work Phone: 10-29-2021 17:52-0400 Diastolic blood pressure 80 mm[Hg] Dr. Aleena London Work Phone: [facility] Work Phone: 10-29-2021 17:52-0400 Heart rate 105 /min Dr. Aleena London Work Phone: [facility] Work Phone: 10-29-2021 17:52-0400 Respiratory rate 15 /min Dr. Aleena London Work Phone: [facility] Work Phone: 10-29-2021 17:52-0400 SaO2% (BldA) [Mass fraction] 99 % Dr. Aleena London Work Phone: [facility] Work Phone: 10-29-2021 17:52-0400 Systolic blood pressure 150 mm[Hg] Dr. Aleena London Work Phone: [facility] Work Phone: 10-15-2021 11:07-0400 Body mass index (BMI) [Ratio] 37.4 kg/m2 Dr. Aleena London Work Phone: [facility] Work Phone: 10-15-2021 11:07-0400 Body temperature 98.1 [degF] Dr. Aleena London Work Phone: [facility] Work Phone: 10-15-2021 11:07-0400 Body weight 105.[address] Aleena London Work Phone: [facility] Work Phone: 10-15-2021 11:07-0400 Diastolic blood pressure 74 mm[Hg] Dr. Aleena London Work Phone: [facility] Work Phone: 10-15-2021 11:07-0400 Heart rate 70 /min Dr. Aleena London Work Phone: [facility] Work Phone: 10-15-2021 11:07-0400 Respiratory rate 16 /min Dr. Aleena London Work Phone: [facility] Work Phone: 10-15-2021 11:07-0400 SaO2% (BldA) [Mass fraction] 98 % Dr. Aleena London Work Phone: [facility] Work Phone: 10-15-2021 11:07-0400 Systolic blood pressure 108 mm[Hg] Dr. Aleena London Work Phone: [facility] Work Phone: 10-15-2021 11:07-0400 Body height 167.[address] Aleena London Work Phone: [facility] Work Phone: 10-15-2021 11:07-0400 Body mass index (BMI) [Ratio] 37.4 kg/m2 Dr. Aleena London Work Phone: [facility] Work Phone: 10-15-2021 11:07-0400 Body temperature 98.1 [degF] Dr. Aleena London Work Phone: [facility] Work Phone: 10-15-2021 11:07-0400 Body weight 105.[address] Aleena London Work Phone: [facility] Work Phone: 10-15-2021 11:07-0400 Diastolic blood pressure 74 mm[Hg] Dr. Aleena London Work Phone: [facility] Work Phone: 10-15-2021 11:07-0400 Heart rate 70 /min Dr. Aleena London Work Phone: [facility] Work Phone: 10-15-2021 11:07-0400 Respiratory rate 16 /min Dr. Aleena London Work Phone: [facility] Work Phone: 10-15-2021 11:07-0400 SaO2% (BldA) [Mass fraction] 98 % Dr. Aleena London Work Phone: [facility] Work Phone: 10-15-2021 11:07-0400 Systolic blood pressure 108 mm[Hg] Dr. Aleena London Work Phone: [facility] Work Phone: 10-13-2021 09:05-0400 Body temperature 98.6 [degF] Dr. Aleena London Work Phone: [facility] Work Phone: 10-13-2021 09:05-0400 Diastolic blood pressure 78 mm[Hg] Dr. Aleena London Work Phone: [facility] Work Phone: 10-13-2021 09:05-0400 Heart rate 86 /min Dr. Aleena London Work Phone: [facility] Work Phone: 10-13-2021 09:05-0400 Respiratory rate 14 /min Dr. Aleena London Work Phone: [facility] Work Phone: 10-13-2021 09:05-0400 SaO2% (BldA) [Mass fraction] 97 % Dr. Aleena London Work Phone: [facility] Work Phone: 10-13-2021 09:05-0400 Systolic blood pressure 126 mm[Hg] Dr. Aleena London Work Phone: [facility] Work Phone: 10-13-2021 09:05-0400 Body temperature 98.6 [degF] Dr. Aleena London Work Phone: [facility] Work Phone: 10-13-2021 09:05-0400 Diastolic blood pressure 78 mm[Hg] Dr. Aleena London Work Phone: [facility] Work Phone: 10-13-2021 09:05-0400 Heart rate 86 /min Dr. Aleena London Work Phone: [facility] Work Phone: 10-13-2021 09:05-0400 Respiratory rate 14 /min Dr. Aleena London Work Phone: [facility] Work Phone: 10-13-2021 09:05-0400 SaO2% (BldA) [Mass fraction] 97 % Dr. Aleena London Work Phone: [facility] Work Phone: 10-13-2021 09:05-0400 Systolic blood pressure 126 mm[Hg] Dr. Aleena London Work Phone: [facility] Work Phone: 10-11-2021 10:37-0400 Body mass index (BMI) [Ratio] 37.5 kg/m2 Dr. Aleena London Work Phone: [facility] Work Phone: 10-11-2021 10:37-0400 Body weight 105.[address] Aleena London Work Phone: [facility] Work Phone: 10-11-2021 10:37-0400 Diastolic blood pressure 82 mm[Hg] Dr. Aleena London Work Phone: [facility] Work Phone: 10-11-2021 10:37-0400 Systolic blood pressure 122 mm[Hg] Dr. Aleena London Work Phone: [facility] Work Phone: 10-11-2021 10:37-0400 Body height 167.[address] Aleena London Work Phone: [facility] Work Phone: 10-11-2021 10:37-0400 Body mass index (BMI) [Ratio] 37.5 kg/m2 Dr. Aleena London Work Phone: [facility] Work Phone: 10-11-2021 10:37-0400 Body weight 105.[address] Aleena London Work Phone: [facility] Work Phone: 10-11-2021 10:37-0400 Diastolic blood pressure 82 mm[Hg] Dr. Aleena London Work Phone: [facility] Work Phone: 10-11-2021 10:37-0400 Systolic blood pressure 122 mm[Hg] Dr. Aleena London Work Phone: [facility] Work Phone: 09-27-2021 14:08-0400 Body mass index (BMI) [Ratio] 37.8 kg/m2 Dr. Aleena London Work Phone: [facility] Work Phone: 09-27-2021 14:08-0400 Body weight 106.[address] Aleena London Work Phone: [facility] Work Phone: 09-27-2021 14:08-0400 Diastolic blood pressure 78 mm[Hg] Dr. Aleena London Work Phone: [facility] Work Phone: 09-27-2021 14:08-0400 Heart rate 74 /min Dr. Aleena London Work Phone: [facility] Work Phone: 09-27-2021 14:08-0400 Respiratory rate 18 /min Dr. Aleena London Work Phone: [facility] Work Phone: 09-27-2021 14:08-0400 SaO2% (BldA) [Mass fraction] 98 % Dr. Aleena London Work Phone: [facility] Work Phone: 09-27-2021 14:08-0400 Systolic blood pressure 114 mm[Hg] Dr. Aleena London Work Phone: [facility] Work Phone: 09-27-2021 14:08-0400 Body mass index (BMI) [Ratio] 37.8 kg/m2 Dr. Aleena London Work Phone: [facility] Work Phone: 09-27-2021 14:08-0400 Body weight 106.[address] Aleena London Work Phone: [facility] Work Phone: 09-27-2021 14:08-0400 Diastolic blood pressure 78 mm[Hg] Dr. Aleena London Work Phone: [facility] Work Phone: 09-27-2021 14:08-0400 Heart rate 74 /min Dr. Aleena London Work Phone: [facility] Work Phone: 09-27-2021 14:08-0400 Respiratory rate 18 /min Dr. Aleena London Work Phone: [facility] Work Phone: 09-27-2021 14:08-0400 SaO2% (BldA) [Mass fraction] 98 % Dr. Aleena London Work Phone: [facility] Work Phone: 09-27-2021 14:08-0400 Systolic blood pressure 114 mm[Hg] Dr. Aleena London Work Phone: [facility] Work Phone: 09-22-2021 14:55-0400 Body mass index (BMI) [Ratio] 37.9 kg/m2 Dr. Aleena London Work Phone: [facility] Work Phone: 09-22-2021 14:55-0400 Body temperature 98.7 [degF] Dr. Aleena London Work Phone: [facility] Work Phone: 09-22-2021 14:55-0400 Body weight 106.[address] Aleena London Work Phone: [facility] Work Phone: 09-22-2021 14:55-0400 Diastolic blood pressure 82 mm[Hg] Dr. Aleena London Work Phone: [facility] Work Phone: 09-22-2021 14:55-0400 Heart rate 88 /min Dr. Aleena London Work Phone: [facility] Work Phone: 09-22-2021 14:55-0400 Respiratory rate 14 /min Dr. Aleena London Work Phone: [facility] Work Phone: 09-22-2021 14:55-0400 SaO2% (BldA) [Mass fraction] 99 % Dr. Aleena London Work Phone: [facility] Work Phone: 09-22-2021 14:55-0400 Systolic blood pressure 114 mm[Hg] Dr. Aleena London Work Phone: [facility] Work Phone: 09-22-2021 14:55-0400 Body height 167.[address] Aleena London Work Phone: [facility] Work Phone: 09-22-2021 14:55-0400 Body mass index (BMI) [Ratio] 37.9 kg/m2 Dr. Aleena London Work Phone: [facility] Work Phone: 09-22-2021 14:55-0400 Body temperature 98.7 [degF] Dr. Aleena London Work Phone: [facility] Work Phone: 09-22-2021 14:55-0400 Body weight 106.[address] Aleena London Work Phone: [facility] Work Phone: 09-22-2021 14:55-0400 Diastolic blood pressure 82 mm[Hg] Dr. Aleena London Work Phone: [facility] Work Phone: 09-22-2021 14:55-0400 Heart rate 88 /min Dr. Aleena London Work Phone: [facility] Work Phone: 09-22-2021 14:55-0400 Respiratory rate 14 /min Dr. Aleena London Work Phone: [facility] Work Phone: 09-22-2021 14:55-0400 SaO2% (BldA) [Mass fraction] 99 % Dr. Aleena London Work Phone: [facility] Work Phone: 09-22-2021 14:55-0400 Systolic blood pressure 114 mm[Hg] Dr. Aleena London Work Phone: [facility] Work Phone: 09-15-2021 08:29-0400 Body mass index (BMI) [Ratio] 37.9 kg/m2 Dr. Aleena London Work Phone: [facility] Work Phone: 09-15-2021 08:29-0400 Body weight 106.[address] Aleena London Work Phone: [facility] Work Phone: 09-15-2021 08:29-0400 Diastolic blood pressure 82 mm[Hg] Dr. Aleena London Work Phone: [facility] Work Phone: 09-15-2021 08:29-0400 Heart rate 87 /min Dr. Aleena London Work Phone: [facility] Work Phone: 09-15-2021 08:29-0400 SaO2% (BldA) [Mass fraction] 98 % Dr. Aleena London Work Phone: [facility] Work Phone: 09-15-2021 08:29-0400 Systolic blood pressure 117 mm[Hg] Dr. Aleena London Work Phone: [facility] Work Phone: 09-15-2021 08:29-0400 Body mass index (BMI) [Ratio] 37.9 kg/m2 Dr. Aleena Londno Work Phone: [facility] Work Phone: 09-15-2021 08:29-0400 Body weight 106.[address] Aleena London Work Phone: [facility] Work Phone: 09-15-2021 08:29-0400 Diastolic blood pressure 82 mm[Hg] Dr. Aleena London Work Phone: [facility] Work Phone: 09-15-2021 08:29-0400 Heart rate 87 /min Dr. Aleena London Work Phone: [facility] Work Phone: 09-15-2021 08:29-0400 SaO2% (BldA) [Mass fraction] 98 % Dr. Aleena London Work Phone: [facility] Work Phone: 09-15-2021 08:29-0400 Systolic blood pressure 117 mm[Hg] Dr. Aleena London Work Phone: [facility] Work Phone: 09-09-2021 09:58-0400 Body mass index (BMI) [Ratio] 37.9 kg/m2 Dr. Aleena London Work Phone: [facility] Work Phone: 09-09-2021 09:58-0400 Body weight 106.[address] Aleena Lodnon Work Phone: [facility] Work Phone: 09-09-2021 09:58-0400 Diastolic blood pressure 79 mm[Hg] Dr. Aleena London Work Phone: [facility] Work Phone: 09-09-2021 09:58-0400 Systolic blood pressure 120 mm[Hg] Dr. Aleena London Work Phone: [facility] Work Phone: 09-09-2021 09:58-0400 Body mass index (BMI) [Ratio] 37.9 kg/m2 Dr. Aleena London Work Phone: [facility] Work Phone: 09-09-2021 09:58-0400 Body weight 106.[address] Aleena London Work Phone: [facility] Work Phone: 09-09-2021 09:58-0400 Diastolic blood pressure 79 mm[Hg] Dr. Aleena London Work Phone: [facility] Work Phone: 09-09-2021 09:58-0400 Systolic blood pressure 120 mm[Hg] Dr. Aleena London Work Phone: [facility] Work Phone: 09-07-2021 11:24-0400 Body temperature 98.2 [degF] Dr. Aleena London Work Phone: [facility] Work Phone: 09-07-2021 11:24-0400 Diastolic blood pressure 86 mm[Hg] Dr. Aleena London Work Phone: [facility] Work Phone: 09-07-2021 11:24-0400 Heart rate 109 /min Dr. Aleena London Work Phone: [facility] Work Phone: 09-07-2021 11:24-0400 Respiratory rate 16 /min Dr. Aleena London Work Phone: [facility] Work Phone: 09-07-2021 11:24-0400 SaO2% (BldA) [Mass fraction] 99 % Dr. Aleena London Work Phone: [facility] Work Phone: 09-07-2021 11:24-0400 Systolic blood pressure 132 mm[Hg] Dr. Aleena London Work Phone: [facility] Work Phone: 09-07-2021 11:24-0400 Body temperature 98.2 [degF] Dr. Aleena London Work Phone: [facility] Work Phone: 09-07-2021 11:24-0400 Diastolic blood pressure 86 mm[Hg] Dr. Aleena London Work Phone: [facility] Work Phone: 09-07-2021 11:24-0400 Heart rate 109 /min Dr. Aleena London Work Phone: [facility] Work Phone: 09-07-2021 11:24-0400 Respiratory rate 16 /min Dr. Aleena London Work Phone: [facility] Work Phone: 09-07-2021 11:24-0400 SaO2% (BldA) [Mass fraction] 99 % Dr. Aleena London Work Phone: [facility] Work Phone: 09-07-2021 11:24-0400 Systolic blood pressure 132 mm[Hg] Dr. Aleena London Work Phone: [facility] Work Phone: 08-25-2021 22:48-0400 Diastolic blood pressure 83 mm[Hg] Dr. Aleena London Work Phone: [facility] Work Phone: 08-25-2021 22:48-0400 Heart rate 98 /min Dr. Aleena London Work Phone: [facility] Work Phone: 08-25-2021 22:48-0400 SaO2% (BldA) [Mass fraction] 77 % Dr. Aleena London Work Phone: [facility] Work Phone: 08-25-2021 22:48-0400 Systolic blood pressure 114 mm[Hg] Dr. Aleena London Work Phone: [facility] Work Phone: 08-25-2021 22:11-0400 Body temperature 98.2 [degF] Dr. Aleena London Work Phone: [facility] Work Phone: 08-25-2021 22:01-0400 Body height 167.[address] Aleena London Work Phone: [facility] Work Phone: 08-25-2021 22:01-0400 Body mass index (BMI) [Ratio] 38 kg/m2 Dr. Aleena London Work Phone: [facility] Work Phone: 08-25-2021 22:01-0400 Body weight 107.[address] Aleena London Work Phone: [facility] Work Phone: 08-25-2021 22:01-0400 Respiratory rate 16 /min Dr. Aleena London Work Phone: [facility] Work Phone: 08-20-2021 18:00-0400 Body temperature 98.4 [degF] Dr. Aleena London Work Phone: [facility] Work Phone: 08-20-2021 18:00-0400 Diastolic blood pressure 80 mm[Hg] Dr. Aleena London Work Phone: [facility] Work Phone: 08-20-2021 18:00-0400 Heart rate 80 /min Dr. Aleena London Work Phone: [facility] Work Phone: 08-20-2021 18:00-0400 Respiratory rate 16 /min Dr. Aleena London Work Phone: [facility] Work Phone: 08-20-2021 18:00-0400 SaO2% (BldA) [Mass fraction] 100 % Dr. Aleena London Work Phone: [facility] Work Phone: 08-20-2021 18:00-0400 Systolic blood pressure 142 mm[Hg] Dr. Aleena London Work Phone: [facility] Work Phone: 08-20-2021 15:33-0400 Body height 167.[address] Aleena Lodnon Work Phone: [facility] Work Phone: 08-20-2021 15:33-0400 Body mass index (BMI) [Ratio] 38 kg/m2 Dr. Aleena London Work Phone: [facility] Work Phone: 08-20-2021 15:33-0400 Body weight 106.[address] Aleena London Work Phone: [facility] Work Phone: 08-11-2021 15:29-0400 Diastolic blood pressure 80 mm[Hg] Dr. Aleena London Work Phone: [facility] Work Phone: 08-11-2021 15:29-0400 Heart rate 90 /min Dr. Aleena London Work Phone: [facility] Work Phone: 08-11-2021 15:29-0400 Systolic blood pressure 120 mm[Hg] Dr. Aleena London Work Phone: [facility] Work Phone: 08-11-2021 15:29-0400 Diastolic blood pressure 80 mm[Hg] Dr. Aleena London Work Phone: [facility] Work Phone: 08-11-2021 15:29-0400 Heart rate 90 /min Dr. Aleena London Work Phone: [facility] Work Phone: 08-11-2021 15:29-0400 Systolic blood pressure 120 mm[Hg] Dr. Aleena London Work Phone: [facility] Work Phone: 08-11-2021 15:26-0400 Body mass index (BMI) [Ratio] 38.5 kg/m2 Dr. Aleena London Work Phone: [facility] Work Phone: 08-11-2021 15:26-0400 Body temperature 97.6 [degF] Dr. Aleena London Work Phone: [facility] Work Phone: 08-11-2021 15:26-0400 Body weight 108.[address] Aleena London Work Phone: [facility] Work Phone: 08-11-2021 15:26-0400 SaO2% (BldA) [Mass fraction] 98 % Dr. Aleena London Work Phone: [facility] Work Phone: 08-11-2021 15:26-0400 Body mass index (BMI) [Ratio] 38.5 kg/m2 Dr. Aleena London Work Phone: [facility] Work Phone: 08-11-2021 15:26-0400 Body temperature 97.6 [degF] Dr. Aleena London Work Phone: [facility] Work Phone: 08-11-2021 15:26-0400 Body weight 108.[address] Aleena London Work Phone: [facility] Work Phone: 08-11-2021 15:26-0400 SaO2% (BldA) [Mass fraction] 98 % Dr. Aleena London Work Phone: [facility] Work Phone: 08-09-2021 11:09-0400 Body mass index (BMI) [Ratio] 38.5 kg/m2 Dr. Aleena London Work Phone: [facility] Work Phone: 08-09-2021 11:09-0400 Body weight 108.[address] Aleena London Work Phone: [facility] Work Phone: 08-09-2021 11:09-0400 Diastolic blood pressure 78 mm[Hg] Dr. Aleena London Work Phone: [facility] Work Phone: 08-09-2021 11:09-0400 Systolic blood pressure 110 mm[Hg] Dr. Aleena London Work Phone: [facility] Work Phone: 08-09-2021 11:09-0400 Body mass index (BMI) [Ratio] 38.5 kg/m2 Dr. Aleena London Work Phone: [facility] Work Phone: 08-09-2021 11:09-0400 Body weight 108.[address] Aleena London Work Phone: [facility] Work Phone: 08-09-2021 11:09-0400 Diastolic blood pressure 78 mm[Hg] Dr. Aleena London Work Phone: [facility] Work Phone: 08-09-2021 11:09-0400 Systolic blood pressure 110 mm[Hg] Dr. Aleena London Work Phone: [facility] Work Phone: 07-15-2021 09:03-0500 Body mass index (BMI) [Ratio] 38.2 kg/m2 Dr. Aleena London Work Phone: [facility] Work Phone: 07-15-2021 09:03-0500 Body weight 107.[address] Aleena London Work Phone: [facility] Work Phone: 07-15-2021 09:03-0500 Diastolic blood pressure 88 mm[Hg] Dr. Aleena London Work Phone: [facility] Work Phone: 07-15-2021 09:03-0500 Heart rate 76 /min Dr. Aleena London Work Phone: [facility] Work Phone: 07-15-2021 09:03-0500 Respiratory rate 16 /min Dr. Aleena London Work Phone: [facility] Work Phone: 07-15-2021 09:03-0500 Systolic blood pressure 120 mm[Hg] Dr. Aleena London Work Phone: [facility] Work Phone: 06-29-2021 10:05-0500 Body mass index (BMI) [Ratio] 39.1 kg/m2 Dr. Aleena London Work Phone: [facility] Work Phone: 06-29-2021 10:05-0500 Body weight 109.[address] Aleena London Work Phone: [facility] Work Phone: 06-29-2021 10:05-0500 Diastolic blood pressure 74 mm[Hg] Dr. Aleena London Work Phone: [facility] Work Phone: 06-29-2021 10:05-0500 Heart rate 91 /min Dr. Aleena London Work Phone: [facility] Work Phone: 06-29-2021 10:05-0500 Respiratory rate 18 /min Dr. Aleena London Work Phone: [facility] Work Phone: 06-29-2021 10:05-0500 SaO2% (BldA) [Mass fraction] 96 % Dr. Aleena London Work Phone: [facility] Work Phone: 06-29-2021 10:05-0500 Systolic blood pressure 115 mm[Hg] Dr. Aleena London Work Phone: [facility] Work Phone: 06-28-2021 12:11-0500 Body temperature 97.4 [degF] Dr. Aleena London Work Phone: [facility] Work Phone: 06-28-2021 12:11-0500 Body weight 109.[address] Aleena London Work Phone: [facility] Work Phone: 06-28-2021 12:11-0500 Diastolic blood pressure 78 mm[Hg] Dr. Aleena London Work Phone: [facility] Work Phone: 06-28-2021 12:11-0500 Heart rate 98 /min Dr. Aleena London Work Phone: [facility] Work Phone: 06-28-2021 12:11-0500 Respiratory rate 16 /min Dr. Aleena London Work Phone: [facility] Work Phone: 06-28-2021 12:11-0500 SaO2% (BldA) [Mass fraction] 98 % Dr. Aleena [place] Work Phone: [facility] Work Phone: 06-28-2021 12:11-0500 Systolic blood pressure 140 mm[Hg] Dr. Aleena [place] Work Phone: [facility] Work Phone: 06-21-2021 19:21-0500 Heart rate 78 /min Dr. Aleena [place] Work Phone: [facility] Work Phone: 06-21-2021 19:21-0500 Respiratory rate 15 /min Dr. Aleena [place] Work Phone: [facility] Work Phone: 06-21-2021 19:21-0500 SaO2% (BldA) [Mass fraction] 99 % Dr. Aleena [place] Work Phone: [facility] Work Phone: 06-21-2021 15:48-0500 Body mass index (BMI) [Ratio] 39 kg/m2 Dr. Aleena [place] Work Phone: [facility] Work Phone: 06-21-2021 15:48-0500 Body temperature 96.8 [degF] Dr. Aleena [place] Work Phone: [facility] Work Phone: 06-21-2021 15:48-0500 Body weight 109.[address] Aleena [place] Work Phone: [facility] Work Phone: 06-21-2021 15:48-0500 Diastolic blood pressure 88 mm[Hg] Dr. Aleena [place] Work Phone: [facility] Work Phone: 06-21-2021 15:48-0500 Systolic blood pressure 132 mm[Hg] Dr. Aleena [place] Work Phone: [facility] Work Phone: 06-08-2021 08:36-0500 Body mass index (BMI) [Ratio] 39.2 kg/m2 Dr. Aleena [place] Work Phone: [facility] Work Phone: 06-08-2021 08:36-0500 Body temperature 99.8 [degF] Dr. Aleena [place] Work Phone: [facility] Work Phone: 06-08-2021 08:36-0500 Body weight 110.[address] Aleena [place] Work Phone: [facility] Work Phone: 06-08-2021 08:36-0500 Diastolic blood pressure 84 mm[Hg] Dr. Aleena [place] Work Phone: [facility] Work Phone: 06-08-2021 08:36-0500 Heart rate 85 /min Dr. Aleena London Work Phone: [facility] Work Phone: 06-08-2021 08:36-0500 Respiratory rate 16 /min Dr. Aleena London Work Phone: [facility] Work Phone: 06-08-2021 08:36-0500 SaO2% (BldA) [Mass fraction] 99 % Dr. Aleena London Work Phone: [facility] Work Phone: 06-08-2021 08:36-0500 Systolic blood pressure 140 mm[Hg] Dr. Aleena London Work Phone: [facility] Work Phone: 06-03-2021 07:14-0500 Body mass index (BMI) [Ratio] 38.9 kg/m2 Dr. Aleena London Work Phone: [facility] Work Phone: 06-03-2021 07:14-0500 Body temperature 98.2 [degF] Dr. Aleena London Work Phone: [facility] Work Phone: 06-03-2021 07:14-0500 Body weight 109.[address] Aleena [place] Work Phone: [facility] Work Phone: 06-03-2021 07:14-0500 Diastolic blood pressure 88 mm[Hg] Dr. Aleena London Work Phone: [facility] Work Phone: 06-03-2021 07:14-0500 Heart rate 83 /min Dr. Aleena London Work Phone: [facility] Work Phone: 06-03-2021 07:14-0500 Respiratory rate 14 /min Dr. Aleena London Work Phone: [facility] Work Phone: 06-03-2021 07:14-0500 SaO2% (BldA) [Mass fraction] 99 % Dr. Aleena London Work Phone: [facility] Work Phone: 06-03-2021 07:14-0500 Systolic blood pressure 146 mm[Hg] Dr. Aleena London Work Phone: [facility] Work Phone: 05-05-2021 09:43-0500 Body mass index (BMI) [Ratio] 38.9 kg/m2 Dr. Aleena London Work Phone: [facility] Work Phone: 05-05-2021 09:43-0500 Body temperature 98 [degF] Dr. Aleena London Work Phone: [facility] Work Phone: 05-05-2021 09:43-0500 Body weight 109.[address] Aleena London Work Phone: [facility] Work Phone: 05-05-2021 09:43-0500 Diastolic blood pressure 68 mm[Hg] Dr. Aleena London Work Phone: [facility] Work Phone: 05-05-2021 09:43-0500 Heart rate 72 /min Dr. Aleena London Work Phone: [facility] Work Phone: 05-05-2021 09:43-0500 Respiratory rate 16 /min Dr. Aleena London Work Phone: [facility] Work Phone: 05-05-2021 09:43-0500 SaO2% (BldA) [Mass fraction] 97 % Dr. Aleena London Work Phone: [facility] Work Phone: 05-05-2021 09:43-0500 Systolic blood pressure 110 mm[Hg] Dr. Aleena London Work Phone: [facility] Work Phone: 05-03-2021 08:06-0500 Body mass index (BMI) [Ratio] 38.7 kg/m2 Dr. Aleena London Work Phone: [facility] Work Phone: 05-03-2021 08:06-0500 Body temperature 98.7 [degF] Dr. Aleena London Work Phone: [facility] Work Phone: 05-03-2021 08:06-0500 Body weight 108.[address] Aleena London Work Phone: [facility] Work Phone: 05-03-2021 08:06-0500 Diastolic blood pressure 70 mm[Hg] Dr. Aleena London Work Phone: [facility] Work Phone: 05-03-2021 08:06-0500 Heart rate 92 /min Dr. Aleena London Work Phone: [facility] Work Phone: 05-03-2021 08:06-0500 Respiratory rate 16 /min Dr. Aleena London Work Phone: [facility] Work Phone: 05-03-2021 08:06-0500 SaO2% (BldA) [Mass fraction] 98 % Dr. Aleena London Work Phone: [facility] Work Phone: 05-03-2021 08:06-0500 Systolic blood pressure 106 mm[Hg] Dr. Aleena [place] Work Phone: [facility] Work Phone: 04-19-2017 11:55-0500 BMI (Body Mass Index) 38.51 kg/m2 Hanh Balderas NP [facility] 04-19-2017 11:55-0500 BP Diastolic 72 mm[Hg] Hanh Balderas NP [facility] 04-19-2017 11:55-0500 BP Systolic 113 mm[Hg] Hanh Balderas NP [facility] 04-19-2017 11:55-0500 Weight 108.23 kg Hanh Balderas NP [facility] 04-10-2017 05:19-0500 BMI (Body Mass Index) 38.73 kg/m2 Cassidy Moore MD [facility] 04-10-2017 05:19-0500 BP Diastolic 78 mm[Hg] Cassidy Moore MD [facility] 04-10-2017 05:19-0500 BP Systolic 123 mm[Hg] Cassidy Moore MD [facility] 04-10-2017 05:19-0500 Weight 108.86 kg Cassidy Moore MD [facility] 03-13-2017 09:06-0400 BMI (Body Mass Index) 38.83 kg/m2 Hanh Balderas NP [facility] 03-13-2017 09:06-0400 BP Diastolic 77 mm[Hg] Hanh [place] [employer] [facility] 03-13-2017 09:06-0400 BP Systolic 122 mm[Hg] Hanh Bladeras [employer] [facility] 03-13-2017 09:06-0400 Pulse (Heart Rate) 95 /min Hanh Balderas NP [facility] 03-13-2017 09:06-0400 Weight 109.14 kg Hanh Balderas NP [facility] 02-17-2017 06:51-0400 BMI (Body Mass Index) 38.41 kg/m2 Cassidy Moore MD [facility] 02-17-2017 06:51-0400 Body Temperature 98.4 [degF] Cassidy Moore MD [facility] 02-17-2017 06:51-0400 BP Diastolic 79 mm[Hg] Cassidy Moore MD [facility] 02-17-2017 06:51-0400 BP Systolic 113 mm[Hg] Cassidy Moore MD [facility] 02-17-2017 06:51-0400 Pulse (Heart Rate) 97 /min Cassidy Moore MD [facility] 02-17-2017 06:51-0400 Respiratory Rate 16 /min Cassidy Moore MD [facility] 02-17-2017 06:51-0400 Weight 107.96 kg Cassidy Moore MD [facility] 02-09-2017 11:21-0400 BMI (Body Mass Index) 38.51 kg/m2 Cassidy Moore MD [facility] 02-09-2017 11:21-0400 Body Temperature 98.5 [degF] Cassidy Moore MD [facility] 02-09-2017 11:21-0400 BP Diastolic 79 mm[Hg] Cassidy Moore MD [facility] 02-09-2017 11:21-0400 BP Systolic 122 mm[Hg] Cassidy Moore MD [facility] 02-09-2017 11:21-0400 Pulse (Heart Rate) 96 /min Cassidy Moore MD [facility] 02-09-2017 11:21-0400 Respiratory Rate 16 /min Cassidy Moore MD [facility] 02-09-2017 11:21-0400 Weight 108.23 kg Cassidy Moore MD [facility] 01-17-2017 13:53-0400 BMI (Body Mass Index) 38.64 kg/m2 Hanh Balderas [employer] [facility] 01-17-2017 13:53-0400 Body Temperature 98.2 [degF] Hanh Dallass [employer] [facility] 01-17-2017 13:53-0400 BP Diastolic 85 mm[Hg] Hanh [place] [employer] [facility] 01-17-2017 13:53-0400 BP Systolic 127 mm[Hg] Hanh [place] [employer] [facility] 01-17-2017 13:53-0400 Height 167.64 cm Hanh Balderas [employer] T[employer] [facility] 01-17-2017 13:53-0400 Pulse (Heart Rate) 87 /min Hanh [place] [employer] [facility] 01-17-2017 13:53-0400 Respiratory Rate 16 /min Hanh [place] [employer] [facility] 01-17-2017 13:53-0400 Weight 108.59 kg Hanh Balderas [employer] [facility] 01-09-2017 15:06-0400 BMI (Body Mass Index) 38.6 kg/m2 Cassidy Moore MD [facility] 01-09-2017 15:06-0400 Body Temperature 98.2 [degF] Cassidy Moore MD [facility] 01-09-2017 15:06-0400 BP Diastolic 76 mm[Hg] Cassidy Moore MD [facility] 01-09-2017 15:0400 BP Systolic 119 mm[Hg] Cassidy Moore MD [facility] 01-09-2017 15:0400 Height 167.64 cm Cassidy Moore MD [facility] 01-09-2017 15:0400 Pulse (Heart Rate) 111 /min Cassidy Moore MD [facility] 01-09-2017 15:060400 Respiratory Rate 16 /min Cassidy Moore MD [facility] 01-09-2017 15:0400 Weight 108.5 kg Cassidy Moore MD [facility] Encounters Encounter Date Encounter Type Care Provider Facility Start: 12-17-2024 ambulatory Efewongbe Oleghe [facility] Start: 12-17-2024 End: 12-17-2024 ambulatory Efewongbe Oleghe Facility:[facility] Start: 12-12-2024 ambulatory Efewongbe Oleghe Facili ty:[facility] Start: 11-29-2024 ambulatory Efewongbe Oleghe Facili ty:[facility] Start: 11-19-2024 End: 11-19-2024 ambulatory Irving Luis Alfredo Facility:[facility] Start: 11-14-2024 End: 11-14-20[facility] Start: 11-11-2024 End: 11-11-2024 ambulatory Efewongbe Oleghe [facility] Start: 11-08-2024 End: 11-08-2024 ambulatory Efewongbe Oleghe [facility] Start: 11-04-2024 End: 11-04-2024 Emergency department patient visit [facility] Start: 11-02-2024 End: 11-02-2024 [facility] Start: 11-01-2024 ambulatory Efewongbe Oleghe Facili [facility] Start: 11-01-2024 End: 11-01-2024 [facility] Start: 10-10-2024 ambulatory Efterriongbe Dimitrye Facili ty:[facility] Start: 10-09-2024 End: 10-09-2024 ambulatory Braulioongnika Moraese Facility:[facility] Start: 10-09-2024 End: 10-09-2024 [facility] Start: 10-06-2024 End: 10-06-2024 Emergency department patient visit Chuck JimenezbelaKeo Facility:[facility] Start: 10-04-2024 End: 10-04-2024 [facility] Start: 10-01-2024 End: 10-01-2024 ambulatory Britany Nuñez Facility[facility] Start: 09-27-2024 ambulatory Sigrid Ram [facility] Start: 09-25-2024 Encounter for gynecological examination (general) (routine) with abnormal findings Hanh Balderas [employer] [facility] Start: 09-25-2024 End: 09-25-2024 ambulatory Hanh Balderas [employer] [facility] Start: 09-24-2024 End: 09-25-2024 ambulatory Brauliodurhamnika Moraese Facility:[facility] Start: 09-24-2024 End: 09-24-2024 ambulatory Britany Nuñez Facility:[facility] Start: 09-19-2024 ambulatory Braulioongbe Dimitrye Facili ty:[facility] Start: 09-19-2024 End: 09-19-[facility] Start: 09-17-2024 ambulatory Britany Nuñez [facility] Start: 09-17-2024 End: 09-17-2024 ambulatory Britany Nuñez Facility:[facility] Start: 09-11-2024 End: 09-11-2024 ambulatory Efterriongbe Dimitrye [facility] Start: 09-04-2024 ambulatory Britany Nuñez [facility] Start: 09-03-2024 End: 09-04-2024 ambulatory Britany Nuñez Facility:[facility] Start: 09-03-2024 End: 09-03-2024 ambulatory Britany Nuñez Facility:[facility] Start: 08-29-2024 End: 08-29-2024 Emergency department patient visit Aleena Moraese Facility:[facility] Start: 08-27-2024 ambulatory Efterriongbe Dimitrye Facili ty:[facility] Start: 08-27-2024 End: 08-27-2024 ambulatory Efterriongbe Oledignae Facility:[facility] Start: 08-21-2024 ambulatory Britany Nuñez [facility] Start: 08-21-2024 End: 08-21-2024 ambulatory Britany Nuñez Facility:[facility] Start: 08-20-2024 End: 08-20-2024 Emergency department patient visit [facility] Start: 08-17-2024 ambulatory Efewongbe Dimitrye Facili ty:[facility] Start: 08-14-2024 End: 08-14-2024 ambulatory Braulioongnika Moraese Facility:[facility] Start: 08-12-2024 ambulatory Efterriongbe Dimitrye Facili ty:[facility] Start: 08-09-2024 End: 08-09-2024 ambulatory Efterriongnika Moraese Facility:[facility] Start: 08-02-2024 End: 08-02-2024 ambulatory Efterriongnika Morease Facility:[facility] Start: 07-25-2024 ambulatory Efewongbe Dimitrye Facili ty:[facility] Start: 07-25-2024 End: 07-25-2024 Emergency department patient visit Aleena Moraese Facility:[facility] Start: 07-09-2024 ambulatory Efewongbe Oledignae Facili ty:[facility] Start: 07-05-2024 ambulatory Efewongbe Oleghe Facili ty:[facility] Start: 07-01-2024 ambulatory Britany Nuñez [facility] Start: 07-01-2024 End: 07-01-2024 ambulatory Brtiany Nuñez Facility:[facility] Start: 06-28-2024 End: 06-28-2024 Emergency department patient visit Aelena Moraese Facility:[facility] Start: 06-21-2024 End: 06-25-2024 ambulatory EFTERRIONGNIKA LEZAMA [facility] Start: 06-21-2024 End: 06-21-2024 Office outpatient new 45 minutes Tomasz Ace DPGiselle Work Phone: [facility] Comment on above: Plantar fasciitis (P rimary Dx) Start: 06-21-2024 End: 06-21-2024 ambulatory Efongbe Olee Facility:[facility] Start: 06-18-2024 End: 06-18-2024 Emergency department patient visit [facility] Facility:[facility] Start: 06-17-2024 End: 06-17-2024 Emergency department patient visit [facility] Facility:[facility] Start: 06-16-2024 End: 06-16-2024 Emergency department patient visit ADAN MOONEY [facility] Start: 06-13-2024 End: 06-13-2024 Emergency department patient visit KRISTOFERLIZZY BLAINE CADE [facility] Start: 06-12-2024 ambulatory Efewongbe Oleghe Facili ty:[facility] Start: 06-11-2024 End: 06-11-2024 ambulatory [facility] Start: 06-10-2024 ambulatory Efewongbe Oleghe Facili ty:[facility] Start: 06-05-2024 End: 06-05-2024 Emergency department patient visit ULICES BALDERAS [facility] Start: 06-04-2024 End: 06-04-2024 [facility] Start: 05-29-2024 End: 05-29-2024 [facility] Start: 05-28-2024 End: 05-28-2024 Emergency department patient visit ARNOLDO CORCORAN [facility] Start: 05-27-2024 ambulatory Efewongbe Oleghe Facili [facility] Start: 05-27-2024 End: 05-27-[facility] Start: 05-20-2024 End: 05-21-2024 Emergency department patient visit [facility] Facility:[facility] Start: 05-18-2024 ambulatory Efewongbe Oleghe Facili ty:[facility] Start: 05-15-2024 End: 05-15-2024 Emergency department patient visit Efewongbe Oleghe Facility:[facility] Start: 05-09-2024 End: 05-10-2024 ambulatory Efewongbe Oleghe Facility:[facility] Start: 05-09-2024 End: 05-09-2024 Emergency department patient visit LIBERTAD FOSTER [facility] Start: 05-06-2024 End: 05-06-2024 Emergency department patient visit Efewongbe Oleghe Facility:[facility] Start: 05-03-2024 End: 05-03-2024 ambulatory Efewongbe Oleghe [facility] Start: 05-01-2024 End: 05-01-2024 ambulatory Efewongbe Oleghe Facility:[facility] Start: 04-25-2024 ambulatory Efewongbe Oleghe Facili [facility] Start: 04-25-2024 End: 04-25-2024 ambulatory Efewdurhambe Oleghe Facility:[facility] Start: 04-23-2024 End: 04-23-2024 Emergency department patient visit Efterriongbe Oleghe Facility:[facility] Start: 04-23-2024 End: 04-23-2024 ambulatory Efewongbe Oleghe Facility:[facility] Start: 04-16-2024 End: 04-16-2024 ambulatory Efewongbe Oleghe [facility] Start: 04-15-2024 End: 04-15-2024 Emergency department patient visit KAYLA TIJERINA [facility] Start: 04-09-2024 ambulatory Efewongbe Oleghe Fac[facility] Start: 04-09-2024 End: 04-09-2024 ambulatory Efewongbe Oleghe Facility:[facility] Start: 04-08-2024 End: 04-08-2024 Emergency department patient visit Efewongbe Oleghe Facility:[facility] Start: 04-02-2024 End: 04-02-2024 Emergency department patient visit Efewongbe Oleghe Facility:[facility] Start: 04-01-2024 End: 04-01-2024 [facility] Start: 03-25-2024 ambulatory Efewongbe Oleghe [facility]ili [facility] Start: 03-25-2024 End: 03-25-2024 ambulatory Efewongbe Oleghe Facility:[facility] Start: 03-21-2024 End: 03-21-2024 Emergency department patient visit Efterriongbe Oleghe Facility:[facility] Start: 03-18-2024 End: 03-18-2024 ambulatory Efewongbe Oleghe [facility] Start: 03-18-2024 [facility]counter [facility] other [facility]ced[facility] Start: 03-17-2024 End: 03-17-2024 Emergency department patient visit COREY PRETTY [facility] Start: 03-12-2024 End: 03-12-2024 ambulatory Efewongbe Oleghe [facility] Start: 03-11-2024 End: 03-11-2024 [facility] Start: 03-08-2024 End: 03-08-2024 ambulatory Efewongbe Oleghe [facility] Start: 03-08-2024 End: 03-08-2024 ambulatory Efewongbe Oleghe [facility] Start: 03-07-2024 End: 03-07-2024 Emergency department patient visit LIBERTAD FOSTER [facility] Start: 03-04-2024 ambulatory Efewongbe Oleghe Facili [facility] Start: 03-04-2024 End: 03-04-2024 Emergency department patient visit ADAN MOONEY [facility] Start: 03-04-2024 End: 03-04-2024 ambulatory Efewongbe Oleghe Facility:[facility] Start: 02-28-2024 End: 02-28-2024 ambulatory Efewongbe Oleghe [facility] Start: 02-28-2024 End: 02-28-2024 [facility] Start: 02-23-2024 End: 02-23-2024 Emergency department patient visit EBENEZER CHAMPION [facility] Start: 02-23-2024 End: 02-23-2024 ambulatory Efewongbe Oleghe [facility] Start: 02-22-2024 End: 02-22-2024 ambulatory Efewongbe Oleghe [facility] Start: 02-20-2024 End: 02-20-2024 Emergency department patient visit RADHA MAKI ROBERTMILEY [facility] Start: 02-16-2024 End: 02-16-2024 Emergency department patient visit Efterriongbe Dimitrye Facility:[facility] Start: 02-15-2024 End: 02-15-2024 ambulatory Efewongbe Oleghe Facility:[facility] Start: 02-14-2024 End: 02-14-2024 Emergency department patient visit LIBERTAD FOSTER [facility] Start: 02-11-2024 End: 02-11-2024 Emergency department patient visit BELKYS AVILA [facility] Start: 02-06-2024 End: 02-06-2024 Emergency department patient visit Efterriongbe Dimitrye Facility:[facility] Start: 02-01-2024 ambulatory Efewongbe Oleghe Fac[facility] Start: 02-01-2024 End: 02-01-2024 ambulatory Efewongbe Oleghe Facility:[facility] Start: 01-31-2024 End: 02-01-2024 Emergency department patient visit Efterriongbe Dimitrye Facility:[facility] Start: 01-29-2024 End: 01-29-2024 Emergency department patient visit ULICES BALDERAS [facility] Start: 01-25-2024 End: 01-25-2024 ambulatory Efewongbe Oleghe [facility] Start: 01-19-2024 End: 01-19-2024 ambulatory Efewongbe Oleghe [facility] Start: 01-16-2024 End: 01-16-2024 Emergency department patient visit NIKKI MILLER [facility] Start: 01-11-2024 End: 01-11-2024 ambulatory Efewongbe Oleghe [facility] Start: 01-10-2024 ambulatory Efewongbe Oleghe Facili ty:[facility] Start: 01-07-2024 End: 01-07-2024 Emergency department patient visit ANDRIA CADE [facility] Start: 12-20-2023 End: 12-20-2023 Emergency department patient visit Aleena London Facility:[facility] Start: 12-01-2023 End: 12-01-2023 Emergency department patient visit BELKYS BROWN MARGARITA [facility] Start: 11-25-2023 End: 11-25-2023 Emergency department patient visit LIBERTAD SUMNERIMES [facility] Start: 11-20-2023 Orders Only Patrick perez Work Phone: [facility] [place] Comment on above: Pain (Primary Dx) Start: 09-29-2023 End: 09-29-2023 Emergency department patient visit Dr. Aleena London Work Phone: [facility] Work Phone: Start: 09-29-2023 End: 09-29-2023 Dr. Aleena London Work Phone: [facility] Work Phone: Start: 09-29-2023 Dr. Aleena London Work Phone: [facility] Work Phone: Start: 09-21-2023 End: 09-21-[address] Aleena [place] Work Phone: [facility] [facility] [place] Work Phone: Start: 09-21-2023 End: 09-21-2023 Dr. Aleena London Work Phone: [facility]-Laboratory, Specimen Work Phone: Start: 09-14-2023 End: 09-14-2023 Dr. Aleena London Work Phone: [facility] Work Phone: Start: 09-14-2023 End: 09-14-2023 Dr. Aleena London Work Phone: [facility] Work Phone: Start: 09-11-2023 End: 09-11-2023 Dr. Aleena London Work Phone: [facility] Work Phone: Start: 09-05-2023 End: 09-05-[address] Aleena London Work Phone: [facility] Work Phone: Start: 09-05-2023 End: 09-05-2023 Dr. Aleena London Work Phone: [facility] Work Phone: Start: 09-05-2023 End: 09-05-2023 Dr. Aleena London Work Phone: [facility] Gastroenterology Work Phone: Start: 08-31-2023 End: 08-31-[address] Aleena London Work Phone: [facility] Work Phone: Start: 08-31-2023 End: 08-31-2023 Dr. Aleena London Work Phone: [facility]-Laboratory, Specimen Work Phone: Start: 08-30-2023 End: 08-30-2023 Dr. Aleena London Work Phone: [facility] Orthopa[facility] Work Phone: Start: 08-18-2023 End: 08-18-2023 Dr. Aleena London Work Phone: [facility] Work Phone: Start: 08-16-2023 End: 08-16-2023 ambulatory Argelia Vasquez MD Work Phone: Gynecology Oncology Comment on above: NO SHOW (Primary Dx) Start: 08-16-2023 End: 08-16-2023 Patient encounter procedure Argelia Vasquez MD Work Phone: [facility] Start: 08-11-2023 End: 08-11-[address] Aleena London Work Phone: [facility] Work Phone: Start: 08-11-2023 End: 08-11-2023 Dr. Aleena London Work Phone: [facility] Work Phone: Start: 07-25-2023 End: 07-26-2023 Dr. Aleena London Work Phone: [facility]-Emergency Department Work Phone: Start: 07-24-2023 End: 07-24-[address] Aleena London Work Phone: [facility] Work Phone: Start: 07-24-2023 End: 07-24-2023 Dr. Aleena London Work Phone: [facility] Work Phone: Start: 07-18-2023 End: 07-18-2023 Emergency department patient visit Dr. Aleena London Work Phone: [facility] Work Phone: Start: 07-18-2023 End: 07-18-2023 Dr. Aleena London Work Phone: [facility]-Emergency Department Work Phone: Start: 07-18-2023 End: 07-18-2023 Dr. Aleena London Work Phone: [facility] Work Phone: Start: 07-13-2023 End: 07-13-2023 Dr. Aleena London Work Phone: [facility] Work Phone: Start: 07-06-2023 End: 07-06-2023 Dr. Aleena London Work Phone: [facility] Work Phone: Start: 07-04-2023 End: 07-04-2023 Dr. Aleena London Work Phone: [facility] Work Phone: Start: 06-29-2023 End: 06-29-2023 Dr. Aleena London Work Phone: [facility]-Emergency Department Work Phone: Start: 05-16-2023 End: 05-16-[address] Aleena London Work Phone: [facility] Work Phone: Start: 05-16-2023 End: 05-16-2023 Dr. Aleena London Work Phone: [facility] Work Phone: Start: 05-04-2023 End: 05-04-2023 Emergency department patient visit Dr. Aleena London Work Phone: [facility] Work Phone: Start: 05-04-2023 End: 05-04-2023 Dr. Aleena London Work Phone: [facility]-Emergency Department Work Phone: Start: 05-03-2023 End: 05-03-[address] Aleena London Work Phone: [facility] Work Phone: Start: 05-03-2023 End: 05-03-2023 Dr. Aleena London Work Phone: [facility] G[facility] Work Phone: Start: 04-19-2023 End: 04-19-2023 Dr. Aleena London Work Phone: [facility] Internal [facility] Work Phone: Start: 04-17-2023 Dr. Aleena London Work Phone: [facility] Start: 04-17-2023 End: 04-17-2023 Emergency department patient visit Dr. Aleena London Work Phone: [facility] Work Phone: Start: 04-17-2023 End: 04-17-2023 Dr. Aleena London Work Phone: [facility]-Emergency Department Work Phone: Start: 04-12-2023 Telephone encounter Fatmata maher MD Work Phone: [facility] Pelvic Health Comment on above: Referral Start: 04-11-2023 End: 04-11-[address] Aleena London Work Phone: [facility] Work Phone: Start: 04-11-2023 End: 04-11-2023 Dr. Aleena London Work Phone: [facility]-Outpatient Breast Imaging Work Phone: Start: 04-06-2023 End: 04-06-[address] Aleena London Work Phone: [facility] Work Phone: Start: 04-06-2023 End: 04-06-2023 Dr. Aleena London Work Phone: [facility] Work Phone: Start: 03-28-2023 End: 03-28-[address] Aleena London Work Phone: [facility] Work Phone: Start: 03-28-2023 End: 03-28-2023 Dr. Aleena London Work Phone: [facility]-Laboratory Work Phone: Start: 03-21-2023 End: 03-21-[address] Aleena London Work Phone: [facility] Work Phone: Start: 03-21-2023 End: 03-21-2023 Dr. Aleena London Work Phone: [facility]-Occupational Therapy Work Phone: Start: 03-16-2023 End: 03-16-2023 Dr. Aleena London Work Phone: [facility] Work Phone: Start: 03-09-2023 End: 03-09-[address] Aleena London Work Phone: [facility] Work Phone: Start: 03-09-2023 End: 03-09-2023 Dr. Aleena London Work Phone: [facility]-Outpatient Pavilion Ultrasound Work Phone: Start: 03-07-2023 End: 03-07-2023 Dr. Aleena London Work Phone: [facility] Work Phone: Start: 03-03-2023 End: 03-03-[address] Aleena London Work Phone: [facility] Work Phone: Start: 03-03-2023 End: 03-03-2023 Dr. Aleena London Work Phone: [facility]-Laboratory Work Phone: Start: 03-01-2023 End: 03-01-2023 Dr. Aleena London Work Phone: [facility] Work Phone: Start: 02-22-2023 End: 02-22-2023 Dr. Aleena London Work Phone: [facility] Work Phone: Start: 02-14-2023 End: 02-14-[address] Aleena London Work Phone: [facility] Work Phone: Start: 02-14-2023 End: 02-14-2023 Dr. Aleena London Work Phone: [facility]-Surgical Day Care Start: 02-13-2023 End: 02-13-2023 Dr. Aleena London Work Phone: [facility] Work Phone: Start: 02-10-2023 End: 02-10-2023 Dr. Aleena London Work Phone: [facility] Work Phone: Start: 02-08-2023 End: 02-08-2023 Emergency department patient visit Dr. Aleena London Work Phone: [facility] Work Phone: Start: 02-08-2023 End: 02-08-2023 Dr. Aleena London Work Phone: [facility]-Emergency Department Work Phone: Start: 02-04-2023 End: 02-04-2023 Emergency department patient visit Dr. Aleena London Work Phone: [facility] Work Phone: Start: 02-04-2023 End: 02-04-2023 Dr. Aleena London Work Phone: [facility] Work Phone: Start: 02-02-2023 Telephone encounter Nima Kaur MD Work Phone: [facility] [place] Comment on above: Patient Question Start: 01-16-2023 End: 01-16-2023 Dr. Aleena London Work Phone: [facility] Work Phone: Start: 12-25-2022 End: 12-25-2022 Emergency department patient visit Dr. Aleena London Work Phone: [facility] Work Phone: Start: 12-25-2022 End: 12-25-2022 Dr. Aleena London Work Phone: [facility] Work Phone: Start: 12-15-2022 End: 12-15-[address] Aleena London Work Phone: [facility] Work Phone: Start: 12-15-2022 End: 12-15-[address] Aleena London Work Phone: [facility] Work Phone: Start: 12-15-2022 End: 12-15-2022 Dr. Aleena London Work Phone: [facility] Work Phone: Start: 12-15-2022 End: 12-15-[address] Aleena London Work Phone: [facility] Work Phone: Start: 12-15-2022 End: 12-15-2022 Dr. Aleena London Work Phone: [facility] Work Phone: Start: 12-08-2022 End: 12-08-[address] Aleena London Work Phone: [facility] Work Phone: Start: 12-08-2022 End: 12-08-2022 Dr. Aleena London Work Phone: [facility] Work Phone: Start: 12-06-2022 End: 12-06-[address] Aleena London Work Phone: [facility] Work Phone: Start: 12-06-2022 End: 12-06-2022 Dr. Aleena London Work Phone: [facility] Work Phone: Start: 11-30-2022 End: 11-30-[address] Aleena London Work Phone: [facility] Work Phone: Start: 11-30-2022 End: 11-30-2022 Dr. Aleena London Work Phone: [facility] Work Phone: Start: 11-28-2022 End: 11-28-[address] Aleena London Work Phone: [facility] Work Phone: Start: 11-28-2022 End: 11-28-[address] Aleena London Work Phone: [facility]-Nuclear Medicine, [facility] Work Phone: Start: 11-28-2022 End: 11-28-2022 Dr. Aleena London Work Phone: [facility]-Nuclear Medicine, [facility] Work Phone: Start: 11-25-2022 End: 11-25-[address] Aleena London Work Phone: [facility] Work Phone: Start: 11-25-2022 End: 11-25-[address] Aleena London Work Phone: [facility]-Ultrasound, [facility] Work Phone: Start: 11-25-2022 End: 11-25-2022 Dr. Aleena London Work Phone: [facility], [facility] Work Phone: Start: 11-19-2022 End: 11-20-2022 Emergency department patient visit Dr. Aleena London Work Phone: [facility] Work Phone: Start: 11-19-2022 End: 11-20-2022 Dr. Aleena London Work Phone: [facility]-Emergency Department Work Phone: Start: 11-18-2022 End: 11-18-[address] Aleena London Work Phone: [facility] Work Phone: Start: 11-18-2022 End: 11-18-2022 Dr. Aleena London Work Phone: [facility] Work Phone: Start: 11-16-2022 End: 11-16-2022 ambulatory LUKASZ EUBANKS Facility:[facility] Start: 11-16-2022 End: 11-16-2022 Office outpatient new 60 minutes Lukasz Eubanks MD Work Phone: [facility] Gynecology Oncology Comment on above: Pelvic pain in femal e (Primary Dx) Start: 11-08-2022 End: 11-08-2022 Emergency department patient visit Dr. Aleena London Work Phone: [facility] Work Phone: Start: 11-08-2022 End: 11-08-2022 Dr. Aleena London Work Phone: [facility]-Emergency Department Start: 10-24-2022 End: 10-24-[address] Aleena London Work Phone: [facility] Work Phone: Start: 10-24-2022 End: 10-24-2022 Dr. Aleena London Work Phone: [facility] Start: 10-11-2022 End: 10-12-2022 Emergency department patient visit ALEENA LONDON MD Facility:B Start: 10-07-2022 End: 10-07-[address] Aleena London Work Phone: [facility] Work Phone: Start: 10-07-2022 End: 10-07-[address] Aleena London Work Phone: [facility] Work Phone: Start: 10-07-2022 End: 10-07-2022 Dr. Aleena London Work Phone: [facility] Start: 09-20-2022 End: 09-20-[address] Aleena London Work Phone: [facility] Work Phone: Start: 09-20-2022 End: 09-20-2022 Dr. Aleena London Work Phone: [facility] Start: 09-02-2022 End: 09-02-[address] Aleena London Work Phone: [facility] Work Phone: Start: 09-02-2022 End: 09-02-2022 Dr. Aleena London Work Phone: [facility] Internal Medicine Start: 08-26-2022 Non-patient / Non-visit Dr. Taz London Work Phone: [facility] Start: 08-26-2022 End: 08-26-2022 Emergency department patient visit Dr. Aleena London Work Phone: [facility] Work Phone: Start: 08-26-2022 End: 08-26-2022 Dr. Aleena London Work Phone: [facility]-Emergency Department Start: 08-22-2022 End: 08-22-[address] [facility] Work Phone: Start: 08-22-2022 End: 08-22-2022 Dr. Aleena London Work Phone: [facility] Start: 08-17-2022 End: 08-18-2022 Emergency department patient visit Dr. Aleena London Work Phone: [facility] Work Phone: Start: 08-17-2022 End: 08-18-2022 Dr. Aleena London Work Phone: [facility]-Emergency Department Start: 08-15-2022 End: 08-15-2022 Emergency department patient visit ALAN Garcia QUINN Facility:B Start: 08-15-2022 End: 08-15-2022 Emergency department patient visit ALAN QUINN DO [facility] Start: 08-08-2022 End: 08-08-[address] Aleena London Work Phone: [facility] Work Phone: Start: 08-08-2022 End: 08-08-2022 Dr. Aleena London Work Phone: [facility] Start: 07-25-2022 End: 07-25-[address] Aleena London Work Phone: [facility] Work Phone: Start: 07-25-2022 End: 07-25-2022 Dr. Aleena London Work Phone: [facility], [facility] Start: 07-17-2022 End: 07-17-2022 Emergency department patient visit Dr. Aleena London Work Phone: [facility] Work Phone: Start: 07-17-2022 End: 07-17-2022 Dr. Aleena London Work Phone: [facility]-Emergency Department Start: 07-14-2022 End: 07-14-[address] Aleena London Work Phone: [facility] Work Phone: Start: 07-14-2022 End: 07-14-2022 Dr. Aleena London Work Phone: [facility]-Laboratory Start: 07-13-2022 End: 07-13-[address] Aleena London Work Phone: [facility] Work Phone: Start: 07-13-2022 End: 07-13-2022 Dr. Aleena London Work Phone: [facility] Start: 07-04-2022 End: 07-05-2022 Emergency department patient visit Provider Pending Facility:[id number] Start: 06-29-2022 End: 06-29-2022 Dr. Aleena London Work Phone: [facility] Internal Medicine Start: 06-23-2022 End: 06-24-2022 Emergency department patient visit [facility] Start: 06-22-2022 End: 06-22-[address] Aleena London Work Phone: [facility] Work Phone: Start: 06-22-2022 End: 06-22-2022 Dr. Aleena London Work Phone: [facility] Start: 06-10-2022 End: 06-10-2022 Emergency department patient visit Dr. Aleena London Work Phone: [facility] Work Phone: Start: 06-10-2022 End: 06-10-2022 Dr. Aleena London Work Phone: [facility]-Emergency Department Start: 05-30-2022 End: 05-30-[address] Aleena London Work Phone: [facility] Work Phone: Start: 05-30-2022 End: 05-30-2022 Dr. Aleena London Work Phone: [facility] Internal [facility] Start: 05-25-2022 End: 05-25-2022 Dr. Aleena London Work Phone: [facility] Start: 05-24-2022 End: 05-24-2022 Dr. Aleena London Work Phone: [facility] Start: 05-22-2022 End: 05-23-2022 Emergency department patient visit Dr. Aleena London Work Phone: [facility]-Emergency Department Start: 05-22-2022 End: 05-23-2022 Dr. Aleena London Work Phone: [facility]-Emergency Department Start: 05-04-2022 End: 05-04-[address] Aleena London Work Phone: [facility] Start: 05-04-2022 End: 05-04-2022 Dr. Aleena London Work Phone: [facility] Start: 04-20-2022 End: 04-20-[address] Aleena London Work Phone: [facility] Start: 04-20-2022 End: 04-20-2022 Dr. Aleena London Work Phone: [facility] Start: 04-19-2022 Non-patient / Non-visit Dr. Taz London Work Phone: [facility] Start: 04-19-2022 Dr. Aleena London Work Phone: [facility] Start: 04-18-2022 End: 04-18-2022 Emergency department patient visit Dr. Aleena London Work Phone: [facility]-Emergency Department Start: 04-18-2022 End: 04-18-2022 Dr. Aleena London Work Phone: [facility]-Emergency Department Start: 04-16-2022 Non-patient / Non-visit Dr. Taz London Work Phone: [facility] Start: 04-16-2022 Dr. Aleena London Work Phone: [facility] Start: 04-15-2022 End: 04-15-2022 Dr. Aleena London Work Phone: [facility] Start: 04-15-2022 Non-patient / Non-visit Dr. Taz London Work Phone: [facility] Start: 04-15-2022 Dr. Aleena London Work Phone: [facility] Start: 04-14-2022 Non-patient / Non-visit Dr. Taz London Work Phone: [facility] Start: 04-14-2022 Dr. Aleena London Work Phone: [facility] Start: 04-13-2022 Non-patient / Non-visit Dr. Taz London Work Phone: [facility] Start: 04-13-2022 Dr. Aleena London Work Phone: [facility] Start: 04-12-2022 End: 04-16-2022 Evaluation and management of inpatient Dr. Aleena London Work Phone: [facility] Start: 04-12-2022 End: 04-16-2022 Dr. Aleena London Work Phone: [facility] Start: 04-05-2022 End: 04-05-[address] Aleena London Work Phone: [facility] Start: 04-05-2022 End: 04-05-2022 Dr. Aleena London Work Phone: [facility] Start: 03-30-2022 End: 03-30-[address] Aleena London Work Phone: [facility] Work Phone: Start: 03-30-2022 End: 03-30-[address] Aleena London Work Phone: [facility]-Laboratory, Specimen Start: 03-30-2022 End: 03-30-2022 Emergency department patient visit Dr. Aleena London Work Phone: [facility]-Emergency Department Start: 03-30-2022 End: 03-30-2022 Dr. Aleena London Work Phone: [facility]Emergency Department Start: 03-30-2022 End: 03-30-[address] Aleena London Work Phone: [facility] Start: 03-30-2022 End: 03-30-2022 Dr. Aleena London Work Phone: [facility] Start: 03-23-2022 Non-patient / Non-visit Dr. Taz London Work Phone: [facility] Start: 03-23-2022 Dr. Aleena London Work Phone: [facility] Start: 03-22-2022 Non-patient / Non-visit Dr. Taz London Work Phone: [facility] Start: 03-22-2022 Dr. Aleena London Work Phone: [facility] Start: 03-22-2022 End: 03-23-2022 Evaluation and management of inpatient Dr. Aleena London Work Phone: [facility] Start: 03-22-2022 End: 03-23-2022 Dr. Aleena London Work Phone: [facility] Start: 03-12-2022 End: 03-12-2022 Emergency department patient visit Dr. Aleena London Work Phone: [facility] Start: 03-12-2022 End: 03-12-2022 Dr. Aleena London Work Phone: [facility] Start: 03-04-2022 End: 03-04-2022 Emergency department patient visit Dr. Aleena London Work Phone: [facility] Start: 03-04-2022 End: 03-04-2022 Dr. Aleena London Work Phone: [facility]Emergency [facility] Start: 03-02-2022 End: 03-02-[address] Aleena London Work Phone: [facility] Start: 03-02-2022 End: 03-02-2022 Dr. Aleena London Work Phone: [facility] Start: 03-02-2022 End: 03-04-2022 Non-patient / Non-visit Dr. Aleena London Work Phone: [facility] Start: 03-02-2022 End: 03-04-2022 Dr. Aleena London Work Phone: [facility] Start: 02-28-2022 End: 02-28-[address] Aleena London Work Phone: [facility] Start: 02-28-2022 End: 02-28-2022 Dr. Aleena London Work Phone: [facility] Start: 02-25-2022 End: 02-25-[address] Aleena London Work Phone: [facility] Start: 02-25-2022 End: 02-25-2022 Dr. Aleena London Work Phone: [facility] Start: 02-23-2022 End: 02-23-[address] Aleena London Work Phone: [facility] Work Phone: Start: 02-23-2022 End: 02-23-[address] Aleena London Work Phone: [facility]-Pulmonary Services/Neurology Start: 02-23-2022 End: 02-23-2022 Dr. Aleena London Work Phone: [facility] Start: 02-23-2022 End: 02-23-[address] Aleena London Work Phone: [facility] Gastro[facility]ology Start: 02-23-2022 End: 02-23-2022 Dr. Aleena London Work Phone: [facility] [facility] Start: 02-15-2022 End: 02-15-2022 Emergency department patient visit Dr. Aleena London Work Phone: [facility] Start: 02-15-2022 End: 02-15-2022 Dr. Aleena London Work Phone: [facility] Start: 02-15-2022 End: 02-15-[address] Aleena London Work Phone: [facility] Start: 02-15-2022 End: 02-15-2022 Dr. Aleena London Work Phone: [facility] Start: 02-10-2022 End: 02-10-[address] Aleena London Work Phone: [facility] Start: 02-10-2022 End: 02-10-2022 Dr. Aleena London Work Phone: [facility] Start: 02-08-2022 End: 02-08-[address] Aleena London Work Phone: [facility] Start: 01-13-2022 End: 01-13-[address] Aleena London Work Phone: [facility] Work Phone: Start: 01-13-2022 End: 01-13-[address] Aleena London Work Phone: [facility] Start: 01-11-2022 End: 01-11-[address] Aleena London Work Phone: [facility] Work Phone: Start: 01-11-2022 End: 01-11-[address] Aleena London Work Phone: [facility] Start: 01-03-2022 End: 01-03-[address] Aleena London Work Phone: [facility] Start: 12-30-2021 End: 12-30-[address] Aleena London Work Phone: [facility] Start: 12-23-2021 End: 12-24-2021 Emergency department patient visit Dr. Aleena London Work Phone[facility] Start: 12-16-2021 End: 12-16-[address] Aleena London Work Phone: [facility] Start: 12-07-2021 End: 12-07-[address] Aleena London Work Phone: [facility] Start: 11-27-2021 End: 11-27-2021 Emergency department patient visit Dr. Aleena Leiva Phone: [facility] Start: 11-18-2021 End: 11-18-[address] Aleena London Work Phone: [facility] Start: 11-18-2021 End: 11-18-[address] Aleena London Work Phone: [facility] Start: 11-01-2021 End: 11-01-[address] Aleena London Work Phone: [facility] Start: 10-29-2021 End: 10-29-[address] Aleena London Work Phone: [facility] Start: 10-26-2021 Non-patient / Non-visit Dr. Taz London Work Phone: [facility] Start: 10-26-2021 End: 10-26-[address] Aleena Leiva Phone: [facility] Start: 10-15-2021 End: 10-15-[address] Aleena Leiva Phone: [facility] Start: 10-13-2021 End: 10-13-[address] Aleena Leiva Phone: [facility] Start: 10-11-2021 End: 10-11-[address] Aleena London Work Phone: [facility], Specimen Start: 10-11-2021 End: 10-11-[address] Aleena Leiva Phone: [facility] Start: 09-29-2021 End: 09-29-[address] Aleena London Work Phone: [facility] Start: 09-27-2021 End: 09-27-[address] Aleena Leiva Phone: [facility] Start: 09-23-2021 End: 09-23-[address] Aleena Leiva Phone: [facility], [facility] Start: 09-22-2021 End: 09-22-[address] Aleena London Work Phone: [facility] Start: 09-15-2021 End: 09-15-[address] Aleena Leiva Phone: [facility] Start: 09-09-2021 End: 09-09-[address] Aleena Leiva Phone: [facility] Start: 09-07-2021 End: 09-07-[address] Aleena London Work Phone: [facility] Start: 08-25-2021 End: 08-25-2021 Emergency department patient visit Dr. Aleena London Work Phone: [facility] Start: 08-20-2021 End: 08-20-2021 Emergency department patient visit Dr. Aleena London Work Phone: [facility] Start: 08-11-2021 End: 08-11-[address] Aleena Leiva Phone: [facility] Start: 08-11-2021 End: 08-11-[address] Aleena Leiva Phone: [facility] Start: 08-09-2021 End: 08-09-[address] Aleena London Work Phone: [facility] Start: 07-29-[address] Jorge London Work Phone: [facility] Start: 07-26-2021 End: 07-26-[address] Aleena London Work Phone: [facility] Start: 07-25-[address] Lindy London Work Phone: [facility] Start: 07-16-2021 End: 07-16-[address] Aleena London Work Phone: [facility] Start: 07-15-2021 End: 07-15-[address] Aleena London Work Phone: [facility] Start: 07-06-2021 End: 07-06-[address] Aleena London Work Phone: [facility] Start: 06-29-2021 End: 06-29-[address] Aleena London Work Phone: [facility] Start: 06-28-2021 End: 06-28-[address] Aleena London Work Phone: [facility] Start: 06-21-2021 End: 06-21-2021 Emergency department patient visit Dr. Aleena London Work Phone: [facility] Start: 06-11-2021 End: 06-11-[address] Aleena London Work Phone: [facility] Start: 06-08-2021 End: 06-08-[address] Aleena London Work Phone: [facility] Start: 06-03-2021 End: 06-03-[address] Aleena London Work Phone: [facility] Start: 05-24-2021 End: 05-24-[address] Aleena London Work Phone: [facility] Start: 05-05-2021 End: 05-05-[address] Aleena London Work Phone: [facility] Start: 05-03-2021 End: 05-03-[address] Aleena London Work Phone: [facility] Start: 12-31-2020 End: 12-31-2020 Subsequent hospital visit by physician [facility] Work Phone: Radiology Comment on above: Acute pain of left s praveen [M25.512] Start: 06-25-2020 End: 06-25-2020 Subsequent hospital visit by physician Armando [facility] Work Phone: Radiology Comment on above: Bronchitis [J40] Start: 11-29-2017 End: 11-29-2017 Emergency department patient visit Debora Quiroz Facility:[facility] Procedures Date Procedure Procedure Detail Performing Clinician Start: 09-29-2023 X-ray of soft tissue of neck Dr. Aleena London Work Phone: Start: 09-29-2023 Bilateral mammography Yanet London Work Phone: Start: 09-29-[address] Aleena London Work Phone: Start: 09-21-[address] Aleena London Work Phone: Start: 09-05-2023 Investigation of tra nsfusion reaction Dr. Aleena London Work Phone: Start: 09-05-2023 Dr. Lindy London Work Phone: Start: 08-31-[address] Aleena London Work Phone: Start: 08-11-2023 MRI of cervical spine Yanet London Work Phone: Start: 07-25-2023 CT of abdomen and pe lvis without contrast Dr. Aleena London Work Phone: Start: 07-24-[address] Nannette London Work Phone: Start: 06-29-2023 X-ray of cervical spine Dr. Aleena London Work Phone: Start: 05-16-2023 Ultrasound elastogra phy of liver Dr. Aleena London Work Phone: Start: 04-17-2023 Plain chest X-ray [...] Start: 04-12-2022 Plain chest X-ray Dr. Nannette London Work Phone: Start: 03-30-2022 Computed tomography of [...] of t hyroid and parathyroid Dr. Aleena Lodnon Work Phone: Start: 01-11-[address] 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 Aleena [...] Activity Detail Author Start: 07-20-2053 Pneumococcal vaccination [facility] Comment on above: Postponed from 04/29 (Postponed To Appropriate Date) Start: 2047 RSV Immunization age d 60 or older (1 - 1-dose 60+ series) RSV Immunization aged 60 or older (1 - 1-dose 60+ series) [facility] Start: 2037 Zoster Vaccines (1 of 2) Zoste r Vaccines (1 of 2) [facility] Start: 08-11-2030 Tetanus vaccination Tetanus: Every [address] [facility] Start: 08-11-2030 Urine microalbumin profile DTa P,Tdap,Td Vaccine (2 - Td or Tdap) [facility] Start: 09-20-2024 End: 09-20-2024 Patient encounter procedure 09/20/2024 10:30 AM EDT Office Visit [facility] [address] [place] [id number] Tomasz Ace Jr., DPM [address] [place] [address] [facility] Start: 01-21-2024 Covid-19 Vaccine ( season) Covid-19 Vaccine ( season) [facility] Start: 01-21-2024 Influenza vaccination C [facility] Start: 12-19-2023 End: 12-19-2023 Patient encounter procedure Radiology Comment on above: RT FOOT BONE SPUR RT FOOT PA INFUL SEVERE Start: 09-29-2023 [facility] Start: 09-28-2023 HPV Testing HPV Testing [facility] Start: 09-28-2023 Pap Testing Pap Testing [facility] Start: 09-28-2023 Screening for malign ant neoplasm of cervix [facility] Start: 09-05-2023 Chlamydia deoxyribon ucleic acid detection [facility] Start: 09-05-2023 Source specific culture [facility] Start: 09-05-2023 [facility] Start: 07-26-2023 [facility] Start: 07-18-2023 [facility] Start: 07-06-2023 Patient referral [facility] Work Phone: Start: 06-29-2023 [facility] Start: 05-16-2023 Ultrasound elastogra phy of liver [facility] Start: 05-04-2023 [facility] Start: 05-03-2023 Cytoplasmic ANCA Screen [facility] Start: 04-19-2023 Patient referral [facility] Work Phone: Start: 04-11-2023 Digital breast tomosynthesis bilateral [facility] Start: 03-16-2023 Patient referral [facility] Work Phone: Start: 02-14-2023 Anes nerve muscle td n fascia&bursa forearm wrist [facility] Start: 02-14-2023 Neuroplasty &/transp os median nrv carpal tunne [facility] Start: 02-14-2023 Application of ice c ollar, cap or bag [facility] Start: 02-14-2023 Catheterization of vein [facility] Start: 02-14-2023 Elevation of affecte d extremity [facility] Start: 02-14-2023 Following clinical p athway protocol [facility] Start: 02-14-2023 Patient discharge [facility] Start: 02-14-2023 Procedure discontinued [facility] Start: 02-14-2023 Taking patient vital signs [facility] Start: 02-14-2023 Vital signs measurements [facility] Start: 02-14-2023 [facility] Start: 02-14-2023 Medication education [facility] Start: 02-13-2023 Patient referral [facility] Work Phone: Start: 02-13-2023 X-ray of cervical spine [facility] Start: 02-13-2023 X-ray of lumbar spin e, two or three views [facility] Start: 02-13-2023 XR Cervical spine 2 or 3 Views [facility] Start: 02-13-2023 XR Lumbar spine 2 or 3 Views [facility] Start: 01-20-2023 Covid-19 Vaccine ( season) Covid-19 Vaccine ( season) [facility] Start: 01-20-2023 Influenza vaccination Influenza Vacc ine (#1) [facility] Start: 09-02-2022 Patient referral [facility] Work Phone: Start: 07-17-2022 Plain chest X-ray [facility] Start: 07-17-2022 XR Chest PA and Lateral [facility] Start: 07-14-2022 Celiac disease screen [facility] Start: 07-14-2022 [facility] Start: 05-30-2022 Patient referral [facility] Work Phone: Start: 04-16-2022 Patient discharge [facility] Start: 04-15-2022 Ambulation therapy management [facility] Start: 04-15-2022 Continuous pulse oximetry [facility] Start: 04-15-2022 Elevation of head of bed [facility] Start: 04-15-2022 Incentive spirometry [facility] Start: 04-15-2022 Measuring intake and output [facility] Start: 04-15-2022 Notification of physician [facility] Start: 04-15-2022 Oxygen therapy [facility] Start: 04-15-2022 Patient education [facility] Start: 04-15-2022 Procedures relating to eating and drinking [facility] Start: 04-15-2022 Taking patient vital signs [facility] Start: 04-15-2022 [facility] Start: 04-15-2022 Introduction of urin cori catheter [facility] Start: 04-14-2022 [facility] Work Phone: Start: 04-13-2022 Application of intermittent pneumatic compression device [facility] Start: 04-13-2022 Consultation [facility] Start: 04-13-2022 Catheterization of vein [facility] Start: 04-12-2022 Following clinical p athway protocol [facility] Start: 04-12-2022 Ambulation without limitation [facility] Start: 04-12-2022 Assessment of risk o f venous thromboembolism [facility] Start: 04-12-2022 Insertion of cathete r into peripheral vein [facility] Start: 04-12-2022 Providing care accor ding to standard [facility] Start: 04-12-2022 [facility] Start: 04-12-2022 Verification routine [facility] Work Phone: Start: 04-12-[address] [facility] Start: 04-12-2022 End: 04-12-2022 Blood culture [facility] Work Phone: Start: 04-12-2022 Patient referral to dietitian [facility] Start: 03-30-2022 Culture bacterial quanttative colony count urine [facility] Start: 03-30-2022 Culture bct isol&prs mptv id isolate ea urine [facility] Start: 03-23-2022 Patient discharge [facility] Start: 03-22-2022 Ambulation therapy management [facility] Start: 03-22-2022 Continuous pulse oximetry [facility] Start: 03-22-2022 Elevation of head of bed [facility] Start: 03-22-2022 Incentive spirometry [facility] Start: 03-22-2022 Measuring intake and output [facility] Start: 03-22-2022 Notification of physician [facility] Start: 03-22-2022 Oxygen therapy [facility] Start: 03-22-2022 Patient education [facility] Start: 03-22-2022 Procedures relating to eating and drinking [facility] Start: 03-22-2022 Taking patient vital signs [facility] Start: 03-22-2022 Wound care [facility] Start: 03-22-2022 [facility] Start: 03-22-2022 Introduction of urin cori catheter [facility] Start: 03-22-[address] 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 Visit Annual PCP Team Chronic Disease Visit [facility] Start: 09-27-2021 Screening for malign ant neoplasm of cervix Cervical Cancer Screening [facility] Start: 09-22-2021 Patient referral [facility] Work Phone: Start: 08-11-2021 Patient referral [facility] Work Phone: Start: 06-03-2021 Patient referral [facility] Work Phone: Start: 05-10-2017 End: 05-10-2017 Appointment Appointment [facility] Start: 2017 Screening for malign ant neoplasm of cervix [facility] Start: 04-19-2017 End: 04-19-2017 Appointment Appointment [facility] Start: 04-10-2017 End: 04-10-2017 Appointment Appointment [facility] Start: 03-13-2017 End: 03-13-2017 Us preg uterus after 1st trimest 1/ gestation US OB, >14 weeks [facility] Start: 03-13-2017 End: 03-13-2017 Appointment Appointment [facility] Start: 03-10-2017 End: 03-10-2017 Appointment Appointment [facility] Start: 03-03-2017 End: 03-13-2017 Us abdominal real time w/image limited US Kidney [facility] Start: 03-03-2017 End: 03-03-2017 Appointment Appointment [facility] Start: 03-01-2017 End: 03-01-2017 Appointment Appointment [facility] Start: 02-17-2017 End: 02-17-2017 Mri brain brain stem w/o contrast material MRI Brain [facility] Work Phone: Start: 02-17-2017 End: 02-17-2017 Appointment [facility] Start: 02-17-2017 End: 02-17-2017 Mri brain w/o dye MRI Brain [facility] Start: 02-09-2017 End: 02-09-2017 *CBC with Differential *CBC with Differential [facility] Start: 02-09-2017 End: 02-09-2017 *GC/Chlamydia *GC/Chlamydia [facility] Start: 02-09-2017 End: 02-11-2017 *HEBSAG - Hep B Surface Antigen 6510 *HEBSAG - Hep B Surface Antigen 6510 [facility] Start: 02-09-2017 End: 02-11-2017 *HIV antibody *HIV antibody [facility] Start: 02-09-2017 End: 02-09-2017 *TS Type and Screen *TS Type and Screen [facility] Start: 02-09-2017 End: 02-09-2017 Hemoglobin A1c/Hemoglobin.total mass fraction (Bld) *HgA1C [facility] Start: 02-09-2017 End: 02-11-2017 Reagin antibody presence *RPR [facility] Start: 02-09-2017 End: 02-11-2017 Rubella virus Ab [Units/volume] in Serum *Rubella Screen [facility] Start: 02-09-2017 End: 02-09-2017 Urine culture, bacteria *CUUR - Culture, Urine ([place] Count) [facility] Start: 02-09-2017 End: 03-13-2017 Us preg uterus after 1st trimest 1/ gestation US OB, >14 weeks [facility] Start: 02-09-2017 End: 02-09-2017 Appointment Appointment [facility] Start: 02-09-2017 End: 02-09-2017 *CBC with Differential *CBC with Differential [facility] Start: 02-09-2017 End: 02-09-2017 *GC/Chlamydia *GC/Chlamydia [facility] Start: 02-09-2017 End: 02-11-2017 *HEBSAG - Hep B Surface Antigen 6510 *HEBSAG - Hep B Surface Antigen 6510 [facility] Start: 02-09-2017 End: 02-11-2017 *HIV antibody *HIV antibody [facility] Start: 02-09-2017 End: 02-09-2017 *TS Type and Screen *TS Type and Screen [facility] Start: 02-09-2017 End: 02-09-2017 HbA1c *HgA1C [facility] Start: 02-09-2017 End: 02-09-2017 Ob us >/= 14 wks, sngl fetus US OB, >14 weeks [facility] Start: 02-09-2017 End: 02-11-2017 Reagin antibody presence *RPR [facility] Start: 02-09-2017 End: 02-11-2017 Rubella virus Ab [Units/volume] in Serum *Rubella Screen [facility] Start: 02-09-2017 End: 02-09-2017 Urine culture, bacteria *CUUR - Culture, Urine ([place] Count) [facility] Start: 02-06-2017 End: 02-09-2017 Thyroid stimulating hormone (TSH) *TSH [facility] Start: 02-06-2017 End: 02-09-2017 Thyroxine (T4) *T4 TT4 (Thyroxine Total) [facility] Start: 02-06-2017 End: 02-09-2017 Thyroid stimulating hormone (TSH) *TSH [facility] Start: 02-06-2017 End: 02-09-2017 Thyroxine (T4) *T4 TT4 (Thyroxine Total) [facility] Start: 01-17-2017 End: 01-17-2017 Bacteria genital culture *CUV - Culture, VAG/CX Comprehensive [facility] Start: 01-17-2017 End: 01-17-2017 Appointment Appointment [facility] Start: 01-17-2017 End: 01-17-2017 Bacteria genital culture *CUV - Culture, VAG/CX Comprehensive [facility] Start: 01-09-2017 End: 01-09-2017 Appointment Appointment [facility] Start: 01-09-2017 End: 01-09-2017 *ABS Antibody Screen, Indirect *ABS Antibody Screen, Indirect [facility] Start: 01-09-2017 End: 01-09-2017 *Blood Typing, RH *Blood Typing, RH [facility] Start: 01-09-2017 End: 01-09-2017 *CBC with Differential *CBC with Differential [facility] Start: 01-09-2017 End: 01-09-2017 *GC/Chlamydia *GC/Chlamydia [facility] Start: 01-09-2017 End: 01-09-2017 *HEBSAG - Hep B Surface Antigen 6510 *HEBSAG - Hep B Surface Antigen 6510 [facility] Start: 01-09-2017 End: 01-09-2017 *HIV antibody *HIV antibody [facility] Start: 01-09-2017 End: 01-09-2017 *TS Type and Screen *TS Type and Screen [facility] Start: 01-09-2017 End: 01-09-2017 GTT (glucose after 1hr PO glucose) *Glucose, Post Glucose Dose [facility] Start: 01-09-2017 End: 01-09-2017 Reagin antibody presence *RPR [facility] Start: 01-09-2017 End: 01-09-2017 Rubella virus Ab [Units/volume] in Serum *Rubella Screen [facility] Start: 01-09-2017 End: 01-09-2017 Thyroid stimulating hormone (TSH) *TSH [facility] Start: 01-09-2017 End: 01-09-2017 Thyroxine (T4) *T4 TT4 (Thyroxine Total) [facility] Start: 01-09-2017 End: 01-09-2017 Urine culture, bacteria *CUUR - Culture, Urine ([place] Count) [facility] Start: 01-09-2017 End: 01-09-2017 *ABS Antibody Screen, Indirect *ABS Antibody Screen, Indirect [facility] Start: 01-09-2017 End: 01-09-2017 *Blood Typing, RH *Blood Typing, RH [facility] Start: 01-09-2017 End: 01-09-2017 *CBC with Differential *CBC with Differential [facility] Start: 01-09-2017 End: 01-09-2017 *GC/Chlamydia *GC/Chlamydia [facility] Start: 01-09-2017 End: 01-09-2017 *HEBSAG - Hep B Surface Antigen 6510 *HEBSAG - Hep B Surface Antigen 6510 [facility] Start: 01-09-2017 End: 01-09-2017 *HIV antibody *HIV antibody [facility] Start: 01-09-2017 End: 01-09-2017 *TS Type and Screen *TS Type and Screen [facility] Start: 01-09-2017 End: 01-09-2017 GTT (glucose after 1hr PO glucose) *Glucose, Post Glucose Dose [facility] Start: 01-09-2017 End: 01-09-2017 Reagin antibody presence *RPR [facility] Start: 01-09-2017 End: 01-09-2017 Rubella virus Ab [Units/volume] in Serum *Rubella Screen [facility] Start: 01-09-2017 End: 01-09-2017 Thyroid stimulating hormone (TSH) *TSH [facility] Start: 01-09-2017 End: 01-09-2017 Thyroxine (T4) *T4 TT4 (Thyroxine Total) [facility] Start: 01-09-2017 End: 01-09-2017 Urine culture, bacteria *CUUR - Culture, Urine ([place] Count) [facility] Start: 01-02-2017 End: 01-09-2017 Us uterus 14 wk transabdl 05/22 gestat US OB, <14 weeks [facility] Start: 01-02-2017 End: 01-09-2017 Ob us < 14 wks, single fetus US OB, <14 weeks [facility] Start: 2008 Screening for malign ant neoplasm of cervix Pap Smear [facility] Start: 2006 DTaP/Tdap/Td Vaccine s (1 - Tdap) DTaP/Tdap/Td Vaccines (1 - Tdap) [facility] Start: 2006 Hepatitis B Vaccine (1 of 3 - 19+ 3-dose series) Hepatitis B Vaccine (1 of 3 - 19+ 3-dose series) [facility] Start: 2006 Pneumococcal Vaccine : Ped or At-Risk (1 of 2 - PCV) Pneumococcal Vaccine: Ped or At-Risk (1 of 2 - PCV) [facility] Start: 2005 Anxiety Screening Anxiety Screening [facility] Start: 2005 Depression Screening Depression Scre ening [facility] Start: 2005 Hepatitis C screening Hepatitis C Sc reening [facility] Start: 2002 HIV screening HIV Screening [facility] Start: 1999 Depression Screening [facility] Start: 1990 History and physical examination, annual for health maintenance Wellness Visit [facility] Start: 1988 MMR Vaccines (1 of 1 - Standard series) MMR Vaccines (1 of 1 - Standard series) [facility] Start: 1988 Varicella vaccination Varicell a Vaccines (1 of 2 - 2-dose childhood series) [facility] Start: 1987 Covid-19 Vaccine (#1) Covid-19 Vacci ne (#1) [facility] Start: 1987 Hepatitis B Vaccine (1 of 3 - 3-dose series) Hepatitis B Vaccine (1 of 3 - 3-dose series) [facility] Start: 1987 Hepatitis B Vaccines (1 of 3 - 3-dose series) Hepatitis B Vaccines (1 of 3 - 3-dose series) [facility] Start: 1987 HIV screening HIV Screening [facility] Anaerobic Culture Anaerobic Culture [facility] Work Phone: Anaerobic microbial culture Anaerobic Culture [facility] Work Phone: Antibody to lupus La protein measurement [facility] Antibody to SS-A measurement [facility] Bacteria identified in Blood by Culture Blood Culture [facility] Work Phone: Bacteria identified in Unspecified specimen by Anaerobe culture [facility] Work Phone: Blood culture [facility] Work Phone: Centromere protein B Ab [Units/volume] in Serum [facility] Chromatin Ab [Units/volume] in Serum or Plasma [facility] DNA double strand Ab [Units/volume] in Serum [facility] Fat [Mass/mass] in Stool [facility] Work Phone: Fat.neutral [Presenc e] in Stool [facility] Work Phone: Alise-1 extractable nuc lear Ab [Units/volume] in Serum [facility] Lipid 1996 panel - S luisa or Plasma [facility] Measurement of immunoglobulin A in serum specimen [facility] Microbial culture, routine Wound Culture [facility] Work Phone: MR Biliary ducts and Pancreatic duct [facility] Work Phone: Neisseria gonorrhoea e rRNA [Presence] in Unspecified specimen by JONE with probe detection [facility] Neutrophil cytoplasm ic Ab.classic [Units/volume] in Serum [facility] P-ANCA measurement [facility] Patient Education [facility] Work Phone: Patient referral [facility] Work Phone: PCR test for Chlamyd ia trachomatis [facility] Radionuclide gastric emptying study [facility] Work Phone: Radionuclide gastric emptying study [facility] Radionuclide imaging of liver and/or biliary tract using radioactive isotope [facility] Work Phone: SCL-70 extractable n uclear Ab [Units/volume] in Serum by Immunoassay [facility] Freedman extractable nu clear Ab [Presence] in Serum [facility] Tissue transglutamin ase IgA Ab [Units/volume] in Serum [facility] Tissue transglutamin ase IgG Ab [Units/volume] in Serum [facility] Ultrasound elastography [facility] Work Phone: Ultrasound elastography [facility] Urine test [facility] Work Phone: US Abdomen limited [facility] US Pelvis [facility] US Pelvis [facility] US Pelvis transvaginal [facility] US Pelvis transvaginal [facility] End: 12-19-2024 XR Foot - right AP and Lateral and oblique XR FOOT GENERAL 3V AP/LAT/OBL RIGHT Radiology Routine Pain 1 Occurrences starting 11/20/2023 until 12/19/2024 [facility] Work Phone: Comment on above: 1 Occurrences starti ng 11/20/2023 until 12/19/2024 [facility] Immunizations Immunization Date Immunization Notes Care Provider [facility] 08-11-2020 tetanus toxoid, redu wendy diphtheria toxoid, and acellular pertussis vaccine, adsorbed Dr. Aleena London Work Phone: [facility] 04-16-2019 influenza virus vaccine, unspecified formulation Nima Kaur MD Work Phone: [facility] 08-29-2012 RHO(D) immune globul in- IV or IM Nima Kaur MD Work Phone: [facility] Work Phone: 06-22-2012 RHO(D) immune globul in- IV or IM Nima Kaur MD Work Phone: [facility] 06-02-2012 RHO(D) immune globul in- IV or IM Nima Kaur MD Work Phone: [facility] Payers Date Payer Category Payer Unknown [id number] 10-13-2023 Self-pay [id number] 08-20-2021 Medicaid (Managed Care) [facility] MEDICA[facility] [id number] 08-20-2021 Unknown [id number] 07-20-2020 Medicaid [id number] 09-20-2019 Private Health Insurance [facility] [id number] 09/20/2019-05/21/2020 [address] [address] [place] [address] HMO [id number] 11-29-2017 Unknown 08-20-2016 Unknown [id number] 1987 Unknown [id number] 2.16.840.1.621380.3.579.2. 1069 1987 Unknown [id number] 2.16.840.1.410124.3.579.2. 903 1987 Unknown [id number] 2.16.840.1.408359.3.579.2. 627 1987 Unknown [id number] 2.16.840.1.555626.3.579.2. 627 1987 Unknown [id number] 2.16.840.1.136740.3.579.2. 903 1987 Unknown [id number] 2.16.840.1.003537.3.579.2. 903 1987 Unknown [id number] 2.16.840.1.974280.3.579.2. 903 1987 Unknown [id number] 2.16.840.1.650742.3.579.2. 902 1987 Unknown [id number] 2.16.840.1.559600.3.579.2. 902 1987 Unknown [id number] 2.16.840.1.245171.3.579.2. 902 1987 Unknown [id number] 2.16.840.1.580276.3.579.2. 902 1987 Unknown [id number] 2.16.840.1.374299.3.579.2. 902 1987 Unknown [id number] 2.16.840.1.940861.3.579.2. 902 1987 Unknown [id number] 2.16.840.1.317175.3.579.2. 902 1987 Unknown [id number] 2.16.840.1.677301.3.579.2. 902 1987 Unknown [id number] 2.16.840.1.293189.3.579.2. 902 1987 Unknown [id number] 2.16.840.1.076797.3.579.2. 902 1987 Unknown [id number] 2.16.840.1.951119.3.579.2. 902 1987 Unknown [id number] 2.16.840.1.580853.3.579.2. 902 1987 Unknown [id number] 2.16.840.1.186445.3.579.2. 902 1987 Unknown [id number] 2.16.840.1.380847.3.579.2. 902 1987 Unknown [id number] 2.16.840.1.857134.3.579.2. 902 1987 Unknown [id number] 2.16.840.1.790790.3.579.2. 902 1987 Unknown [id number] 2.16.840.1.631754.3.579.2. 902 1987 Unknown [id number] 2.16.840.1.555202.3.579.2. 902 1987 Unknown [id number] 2.16.840.1.184562.3.579.2. 902 1987 Unknown [id number] 2.16.840.1.488691.3.579.2. 902 1987 Unknown [id number] 2.16.840.1.382681.3.579.2. 902 1987 Unknown [id number] 2.16.840.1.400023.3.579.2. 902 1987 Unknown [id number] 2.16.840.1.727228.3.579.2. 902 Unknown [id number] Unknown [id number] Unknown [id number] Unknown [id number] 2.16.840.1.128471.3.579.2. 462 Unknown [id number] 2.16.840.1.419172.3.579.2. 462 Unknown [id number] 2.16.840.1.482059.3.579.2. 462 Unknown [id number] 2.16.840.1.544551.3.579.2. 462 Unknown [id number] 2.16.840.1.693794.3.579.2. 462 Unknown [id number] 2.16.840.1.265103.3.579.2. 462 Unknown [id number] 2.16.840.1.328127.3.579.2. 462 Unknown [id number] 2.16.840.1.178141.3.579.2. 462 Unknown [id number] 2.16.840.1.304282.3.579.2. 462 Unknown [id number] 2.16.840.1.717285.3.579.2. 462 Unknown [id number] 2.16840.1.580735.3.579.2. 462 Unknown [id number] 2.16840.1.600407.3.579.2. 462 Unknown [id number] 2.16840.1.402711.3.579.2. 462 Unknown [id number] 2.16840.1.859698.3.579.2. 462 Unknown [id number] 2.840.1.221351.3.579.2. 462 Unknown [id number] 2.16.840.1.432587.3.579.2. 462 Unknown [id number] 2.16.840.1.478871.3.579.2. 462 Unknown [id number] 2.16840.1.409082.3.579.2. 462 Unknown [id number] 2.16.840.1.742752.3.579.2. 462 Unknown [id number] 2.16.840.1.856595.3.579.2. 462 Unknown [id number] 2.16.840.1.434748.3.579.2. 462 Unknown [id number] 2.16.840.1.815798.3.579.2. 462 Unknown [id number] 2.16840.1.006025.3.579.2. 462 Unknown [id number] 2.16.840.1.599442.3.579.2. 462 Unknown [id number] 2.16.840.1.639230.3.579.2. 462 Unknown [id number] 2.16.840.1.209074.3.579.2. 462 Unknown [id number] 2.16.840.1.257765.3.579.2. 462 Unknown [id number] 2.16.840.1.384820.3.579.2. 462 Unknown [id number] 2.16.840.1.475975.3.579.2. 462 Unknown [id number] 2.16.840.1.009140.3.579.2. 462 Unknown [id number] 2.16840.1.629015.3.579.2. 462 Unknown [id number] 2.16.840.1.415961.3.579.2. 462 Unknown [id number] 2.16840.1.579769.3.579.2. 462 Unknown [id number] 2.16.840.1.967862.3.579.2. 462 Unknown [id number] 2.16.840.1.902353.3.579.2. 462 Unknown [id number] 2.16840.1.932378.3.579.2. 462 Unknown [id number] 2.16.840.1.819377.3.579.2. 462 Unknown [id number] 2.16.840.1.672562.3.579.2. 462 Unknown [id number] 2.16.840.1.299053.3.579.2. 462 Unknown [id number] 2.16.840.1.333688.3.579.2. 462 Unknown [id number] 2.16.840.1.291465.3.579.2. 462 Unknown [id number] 2.16.840.1.423810.3.579.2. 462 Unknown [id number] 2.16.840.1.466454.3.579.2. 462 Unknown [id number] 2.16.840.1.977821.3.579.2. 462 Unknown [id number] 2.16.840.1.278086.3.579.2. 462 Unknown [id number] 2.16.840.1.164024.3.579.2. 462 Unknown [id number] 2.16.840.1.523586.3.579.2. 462 Unknown [id number] 2.16.840.1.614988.3.579.2. 462 Unknown [id number] 2.16.840.1.832810.3.579.2. 462 Unknown [id number] 2.16.840.1.711066.3.579.2. 462 Unknown [id number] 2.16.840.1.954635.3.579.2. 462 Unknown [id number] 2.16.840.1.847854.3.579.2. 462 Unknown [id number] 2.16.840.1.267982.3.579.2. 462 Unknown [id number] 2.16.840.1.195789.3.579.2. 462 Unknown [id number] 2.16.840.1.608523.3.579.2. 462 Unknown [id number] 2.16.840.1.253811.3.579.2. 462 Unknown [id number] 2.16.840.1.171716.3.579.2. 462 Unknown [id number] 2.16.840.1.127646.3.579.2. 462 Unknown [id number] 2.16.840.1.995872.3.579.2. 462 Unknown [id number] 2.16.840.1.635116.3.579.2. 462 Unknown [id number] 2.840.1.971953.3.579.2. 462 Unknown [id number] 2.840.1.561310.3.579.2. 462 Unknown [id number] 2.840.1.858209.3.579.2. 462 Unknown [id number] 2.840.1.499431.3.579.2. 462 Unknown [id number] 2.840.1.544343.3.579.2. 462 Unknown [id number] 2.840.1.007469.3.579.2. 462 Unknown [id number] 2.840.1.463645.3.579.2. 462 Unknown [id number] 2.840.1.631343.3.579.2. 462 Unknown [id number] 2.840.1.725313.3.579.2. 462 Unknown [id number] 2.840.1.588849.3.579.2. 462 Unknown [id number] .840.1.141242.3.579.2. 462 Unknown [id number] 2.840.1.920040.3.579.2. 462 Unknown [id number] .840.1.862647.3.579.2. 462 Unknown [id number] 2.840.1.458975.3.579.2. 462 Unknown [id number] .840.1.210149.3.579.2. 462 Unknown [id number] 2.840.1.105824.3.579.2. 462 Unknown [id number] 2.840.1.019131.3.579.2. 462 Unknown [id number] 2.840.1.094938.3.579.2. 462 Unknown [id number] 2.16.840.1.485319.3.579.2. 462 Unknown [id number] 2.16.840.1.789904.3.579.2. 462 Unknown [id number] 2.16.840.1.072177.3.579.2. 462 Unknown [id number] 2.16.840.1.156051.3.579.2. 462 Unknown [id number] 2.16840.1.806965.3.579.2. 462 Unknown [id number] 2.840.1.921561.3.579.2. 462 Unknown [id number] 2.840.1.951933.3.579.2. 462 Unknown [id number] 2.840.1.759090.3.579.2. 462 Unknown [id number] 2.840.1.799785.3.579.2. 462 Unknown [id number] 2.840.1.035617.3.579.2. 462 Unknown [id number] 2.840.1.569083.3.579.2. 462 Unknown [id number] 2.840.1.329314.3.579.2. 462 Unknown [id number] 2.840.1.239064.3.579.2. 462 Unknown [id number] 2.840.1.148645.3.579.2. 462 Unknown [id number] 2.840.1.220131.3.579.2. 462 Unknown [id number] 2.840.1.103692.3.579.2. 462 Unknown [id number] 2.16840.1.343508.3.579.2. 462 Unknown [id number] 2.840.1.714003.3.579.2. 462 Unknown [id number] 2.840.1.095625.3.579.2. 462 Unknown [id number] 2.16.840.1.746710.3.579.2. 462 Unknown [id number] 2.16.840.1.359036.3.579.2. 462 Unknown [id number] 2.16.840.1.929092.3.579.2. 462 Unknown [id number] 2.16.840.1.005816.3.579.2. 462 Unknown [id number] 2.16.840.1.253728.3.579.2. 462 Unknown [id number] 2.16.840.1.206119.3.579.2. 462 Unknown [id number] 2.16.840.1.519475.3.579.2. 462 Unknown [id number] 2.16.840.1.134269.3.579.2. 462 Unknown [id number] 2.16.840.1.676090.3.579.2. 462 Social History Date Type Detail Facility [facility] Work Phone: Start: 08-20-2021 End: 05-04-2023 Tobacco smoking status NHIS Unknown if ever smoked [facility] Start: 07-01-2020 None [facility] Start: 09-08-2020 With Family [facility] Start: 05-25-2020 Cigarettes [facility] Start: 1985 Sex Assigned At Female [facility] Start: 11-16-2022 End: 02-11-2024 Tobacco smoking status Smokes tobacco daily (finding) [facility] Sex Assigned At Sex [facility] Start: 09-02-2004 History of tobacco use Cigarette Smo ker [facility] Start: 11-16-2022 End: 06-21-2024 Cigarettes smoked current (pack per day) - Reported 1 [facility] Start: 11-16-2022 End: 02-11-2024 Tobacco use and exposure Smokeless tobacco non-user [facility] Start: 06-25-2020 End: 11-16-2022 Alcohol intake Current non-drinker of alcohol (finding) [facility] Start: 01-27-2020 End: 06-21-2024 Social connection and isolation panel [facility] Do you belong to any clubs or organizations such as methodist groups, unions, fraternal or athletic groups, or school groups? No [facility] Are you now , , , , never or living with a partner? [facility] How often to you hav e a drink containing alcohol? Monthly or less [facility] Work Phone: How many standard drinks containing alcohol do you have on a typical day? 3 or 4 [facility] Work Phone: How often do you hav e 6 or more drinks on 1 occasion? Less than monthly [facility] Work Phone: How hard is it for y ou to pay for the very basics like food, housing, medical care, and heating Hard [facility] Work Phone: Adult Depression Screening Assessment 1 [facility] Do you feel stress - tense, restless, nervous, or anxious, or unable to sleep at night because your mind is troubled all the time - these days [OSQ] Only a little [facility] (I/We) worried wheth er (my/our) food would run out before (I/we) got money to buy more. Never true [facility] Work Phone: Start: 01-27-2020 Education 12 [facility] Start: 12-09-2016 End: 11-16-2022 Tobacco Comment Childhood home parents smoked outside. [facility] Start: 1985 Sex Assigned At Not on file C [facility] Start: 05-26-2020 End: 12-31-2020 Exposure to SARS-CoV-2 (event) Not sure [facility] Start: 06-21-2024 Alcoholic beverage intake Current drinker of alcohol (finding) [facility] Start: 03-02-2021 Alcohol Comment occasionally [facility] Start: 02-24-2022 Gender identity Identifies as female gender (finding) [facility] Start: 02-24-2022 Sexual orientation Heterosexual (fin ding) [facility] NEGATED: Highlighted row [facility] Medical Equipment Procedure Code Equipment Code Equipment Origin al Text Equipment Identifier Dates Vaginal hysterectomy SEALANT,JASWINDER SEAL HEMOSTATIC 5ML FDA Start: 03-22-2022 Vaginal hysterectomy ( [id number] FDA Start: 03-22-2022 Vaginal hysterectomy SEALANT,JASWINDER SEAL HEMOSTATIC 5ML FDA Start: 03-22-2022 Vaginal hysterectomy SEALANT,JASWINDRE SEAL HEMOSTATIC 5ML FDA Start: 03-22-2022 Vaginal [...] 02-07-2020 Thyroidectomy FDA Start: 02-07-2020 Laparoscopy, diagnostic ([id number]) [id number] [facility] Start: 04-15-2022 Acetone (Urine) Test (Ketone Urine [...] Facility 08-15-2022 Functional Status Room check performed [facility] 08-15-2022 Functional Status [facility] 04-16-2022 Functional status Ambulates [facility] Work Phone: 03-23-2022 Functional status Up ad dylan [facility] Work Phone: Mental Status Date Assessment Result Facility 09-29-2023 Cognitive function Awake;Alert;A ppropriate;Follow s Commands [facility] Work Phone: 06-29-2023 Cognitive function Awake;Alert;A ppropriate;Follow s Commands [facility] Work Phone: 04-17-2023 Cognitive function Awake [facility] Work Phone: 02-14-2023 Cognitive function Voice/Name [facility] Work Phone: 12-25-2022 Cognitive function Voice/Name [facility] Work Phone: 08-17-2022 Cognitive function Awake;Alert;Appropriat [facility] Work Phone: 08-15-2022 Mental Status Orientation Oriented x 4 [facility] 08-15-2022 Mental Status [facility] 07-17-2022 Cognitive function Voice/Name [facility] Work Phone: 04-18-2022 Cognitive function Awake;Alert;A ppropriate;Follow s Commands [facility] Work Phone: 04-16-2022 Cognitive function Voice/Name [facility] Work Phone: 03-30-2022 Cognitive function Awake;Alert;A ppropriate;Follow s Commands [facility] Work Phone: 03-23-2022 Cognitive function Voice/Name [facility] Work Phone: 03-23-2022 Cognitive function Appropriate;[facility] Work Phone: 11-27-2021 Cognitive function Appropriate;[facility] Work Phone: 08-25-2021 Cognitive function Level Of Cons ciousness Awake;Alert;Appropriate;Follow s Commands [facility] Work Phone: Clinical Notes 2018 to 06-21-2024 [...] Resource Strain: High Risk (02/19/2020) Received from [facility] Overall Financial Resource Strain (CARDIA) Difficulty of Paying Living Expenses: Hard Food Insecurity: No Food Insecurity (02/19/2020) Received from [facility] Hunger Vital Sign Worried About Running Out of Food in the Last Year: Never true Ran Out of Food in the Last Year: Never true Transportation Needs: No Transportation Needs (02/19/2020) Received from [facility] PRAPARE - Transportation Lack of Transportation (Medical): No Lack of Transportation (Non-Medical): No Physical Activity: Insufficiently Active (01/27/2020) Received from [facility] Exercise Vital Sign Days of Exercise per Week: 2 days Minutes of Exercise per Session: 20 min Stress: No Stress Concern Present (01/27/2020) Received from [facility] of Occupational Health - Occupational Stress Questionnaire Feeling of Stress : Only a little Social Connections: Moderately Isolated (01/27/2020) Received from [facility] Social Connection and Isolation Panel [NHANES] Frequency of Communication with Friends and Family: More than three times a week Frequency of Social Gatherings with Friends and Family: Twice a week Attends Jewish Services: Never Active Member of Clubs or Organizations: No Attends Club or Organization Meetings: Never Marital Status: Housing Stability: Low Risk (01/27/2020) Received from [facility] Housing Stability Vital [...] BY TOMASZ ACE JR., ON 06/21/2024 14:55:06 [facility] 06-21-2024 History of Presen t illness Narrative [...] Resource Strain: High Risk (02/19/2020) Received from [facility] Overall Financial Resource Strain (CARDIA) Difficulty of Paying Living Expenses: Hard Food Insecurity: No Food Insecurity (02/19/2020) Received from [facility] Hunger Vital Sign Worried About Running Out of Food in the Last Year: Never true Ran Out of Food in the Last Year: Never true Transportation Needs: No Transportation Needs (02/19/2020) Received from [facility] PRAPARE - Transportation Lack of Transportation (Medical): No Lack of Transportation (Non-Medical): No Physical Activity: Insufficiently Active (01/27/2020) Received from [facility] Exercise Vital Sign Days of Exercise per Week: 2 days Minutes of Exercise per Session: 20 min Stress: No Stress Concern Present (01/27/2020) Received from [facility] of Occupational Health - Occupational Stress Questionnaire Feeling of Stress : Only a little Social Connections: Moderately Isolated (01/27/2020) Received from [facility] Social Connection and Isolation Panel [NHANES] Frequency of Communication with Friends and Family: More than three times a week Frequency of Social Gatherings with Friends and Family: Twice a week Attends Jewish Services: Never Active Member of Clubs or Organizations: No Attends Club or Organization Meetings: Never Marital Status: Housing Stability: Low Risk (01/27/2020) Received from [facility] Housing Stability Vital [...] cam boot immobilization. documented in this encounter [facility] 09-30-2023 Hospital Discharg e instructions Additional Instructions 1. Apply ice 6-8 times a day 2. Avoid neck movement it causes you pain. 3. If you develop weakness in your hands or difficulty using your upper extremity return to the emergency room otherwise follow-up with your doctor Dr. London [facility] Work Phone: 09-29-2023 Discharge summary Note Date/Time September 29, 2023 3:52p [facility] Medical Records Department [address] [place] [address] Emergency Department Summary 09/29/23 MR#: [id number] Acct: [id number] Name: LANA RIVERA Rep #:[id number] : 1985 38 From: Sorin Jacobs MD [...] She was instructed to call this past Monday, September 24 if she continued to have [...] Prior similar symptoms: Yes Recent Illness/Hospitalization: Yes [facility] Medical History ADHD (attention deficit hyperactivity [...] % (Auto) 59.6 Lymph % (Auto) 26.8 Rawlins % (Auto) 9.4 Eos % (Auto) 3.4 [...] your Primary Care Provider. Call [facility] ([phone]) or report to the closest Emergency Room. Call 911 if necessary. 09/29/23 1611 <Electronically signed by Sorin Jacobs MD> Cosigner Signature (if applicable): CC: Dr. Aleena London MD ~ Signed [facility] Work Phone: 1(719) 152-826405-10-2024 Hospital Discharge instructions Additional Instructions 1. Apply ice 6-8 times a day 2. Avoid neck movement it causes you pain. 3. If you develop weakness in your hands or difficulty using your upper extremity return to the emergency room otherwise follow-up with your doctor Dr. [facility] Work Phone: [phone]) 659-483903-27-2024 NoteHNO ID: [id number] Author: JAYLA MEDINA APRN.TORTS LAW PROFESSOR Service: ? Author Type: Nurse Practitioner Type: [...] years as her is s/p vasectomy. Her Vascular Surgeon is Dr. Garcia and Dr. Moore IMAGING: [...] negative Last mammogram: 2020, normal Last colonoscopy: N/[facility]03-27-2024 History of Present illness Narrative* Jayla Medina, MIKE.TORTS LAW PROFESSOR - 08/16/2023 2:30 PM EDT PATIENT DID [...] years as her is s/p vasectomy. Her Vascular Surgeon is Dr. Garcia and Dr. Moore IMAGING: [...] normal Last colonoscopy: N/A [facility] Discharge summary Author Ashutosh Barajas [facility] July 18, 2023 11:41pm Note Date/Time July 18, 2023 11:36pm [facility] Medical Records Department [address] [place] [address] Emergency Department Summary 07/18/23 MR#: [id number] Acct: [id number] Name: LANA RIVERA Rep #:[id number] : 1985 38 From: Ashutosh Barajas MD [...] pain or shortness of breath or syncope. [facility] Medical History Abdominal pain ADHD (attention [...] your Primary Care Provider. Call [facility] ([phone]) or report to the closest Emergency Room. Call 911 if necessary. 07/18/23 9006 <Electronically signed by Ashutosh Barajas MD> Cosigner Signature (if applicable): CC: Dr. Aleena London MD ~ Signed ADDENDUM by Dr. Ashutosh Barajas MD on 07/18/23 at 2341 I reviewed prior ED visit at the end of 2022 couple months ago, where she appeared to present with the same thing and had a venous evaluation that was negative for any DVT. 07/18/23 2341<Electronically signed by Ashutosh Barajas MD> Cosigner Signature (if applicable): cc: Dr. Aleena London MD ~* Signed [facility] Work Phone: 1(700) 267-928511-22-2023 NoteSpoke with Sandra at [facility]. Explained that we do not except [employer]. State that she will call Pt to let her know. Ok [facility] Telephone encounter Note* Telephone Encounter - Dimple Lewis - 04/12/2023 12:05 PM EST Spoke with Sandra at [facility]. Explained that we do not except [employer]. State that she will call Pt to let her know. Ok to close [id number] Miscellaneous Notes* Telephone Encounter - Dimple Lewis - 04/12/2023 12:05 PM EST Spoke with Sandra at [facility]. Explained that we do not except [employer]. State that she will call Pt to let her know. Ok to close referral documented in this encounterSPeoples [id number] Procedure [facility]09-14-2023 Miscellaneous Notes* Telephone Encounter - Riya Aguilar MA - 02/02/2023 2:59 PM EDT Spoke with patient and she indicated that she another PCP and now and was not sure why they sent this message to us. She is just trying figure out who scheduled the appointment. I did remove PCP. Riya Aguilar MA * Telephone Encounter - Rezayasminemarla Radha - 02/02/2023 2:01 PM EDT Lana Rivera is calling Nima Kaur MD today with concern regarding appointment on 02/06 withGyn. Patient asking who scheduled appointment because she did not. Please return call to patient. Patient has been identified by name and birthdate. Duration of symptoms: N/A Person calling: self Call patient at: on cell [phone] (home) [phone] (cell) Was an appointment scheduled: No Closing statement: Results or non-symptom based questions: Thank you for [facility], your call will be returned within the next business day. Radha Stark documented in this encounterMercy Health08-06-2023 Discharge summary Author Stephany Robbins [facility] December 25, 2022 2:24pm Note Date/Time December 25, 2022 12: 56pm [facility] Medical Records Department [address] [place] [address] Emergency Department Summary 12/25/22 MR#: [id number] Acct: [id number] Name: LANA RIVERA Giselle Rep #:[id number] : 1985 37 From: Ry Enamorado MD [...] a chronic smoker's cough which is unchanged. 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 <ADRI Burgess - Last Filed: 12/25/22 14:24> [...] <ADRI Burgess - Last Filed: 12/25/22 14:24> MDM MDM Narrative Medical decision making narrative: Patient has [...] % (Auto) 58.5 Lymph % (Auto) 26.7 Rawlins % (Auto) 7.8 Eos % (Auto) 5.7 [...] Enamorado MD - Last Filed: 12/25/22 13:56> [facility] MDM Narrative Medical decision making narrative: I [...] % (Auto) 58.5 Lymph % (Auto) 26.7 Rawlins % (Auto) 7.8 Eos % (Auto) 5.7 [...] ED Midlevel Provider: Stephany Robbins ED Provider: Enamorado,Ry Dx/Rx/DC Orders Clinical Impression: Musculoskeletal arm pain Instructions: Medicine for Pain, Chest Pain Critical access hospital Prescriptions: New methocarbamol 500 mg tablet 500 [...] problems, contact your Primary Care Provider. Call [employer] [facility] ([phone]) or report to the closest Emergency Room. Call 911 if necessary. 12/25/22 7524 <Electronically signed by Ry Enamorado MD> Cosigner Signature (if applicable): 12/25/22 1424 <Electronically signed by Stephany RUSH> CC: Dr. Aleena London MD ~ Signed [facility] Work Phone: 1(343) 195-596307-01-2023 Discharge summary Author Jesi Padilla [facility] November 20, 2022 12:04am Note Date/Time November 19, 2022 9:23p m [facility] Medical Records Department [address] [place] [address] Emergency Department Summary 11/19/22 MR#: [id number] Acct: [id number] Name: LANA RIVERA Rep #:[id number] : 1985 37 From: Jesi Padilla MD [...] some of her pain possibly from scarring. [facility] Medical History Abdominal pain ADHD (attention [...] home: Yes additional social history: nano [place] ROS ED ROS Narrative A complete review of [...] liver that are stable. She hasseen her CARTRIDGE ASSEMBLER and then a specialist in [place] but they do not want to remove [...] % (Auto) 55.7 Lymph % (Auto) 30.7 Rawlins % (Auto) 8.1 Eos % (Auto) 4.7 [...] Instructions: Follow-up with Dr. Tracy and your statistical typist. Disposition Disposition: Home, Self Care What to do if you have Problems For any increased pain, shortness of breath, bleeding, nausea or vomiting, chestpain, or any unexpected problems, contact your Primary Care Provider. Call [facility] ([phone]) or report to the closest Emergency Room. Call 911 if necessary. 11/20/22 0004 <Electronically signed by Jesi Padilla MD> Cosigner Signature (if applicable): CC: Dr. Aleena London MD ~ Signed [facility] Work Phone: 1([phone]) 720-708106-28-2023 NoteHNO ID: [id number] Author: LUKASZ EUBANKS MD Service: ? Author [...] years as her is s/p vasectomy. Her Vascular Surgeon is Dr. Garcia and Dr. Moore The [...] bleeding, vaginal discharge and vaginal pain. 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 HRT use: No. History of abnormal pap: Yes, 2 (more content not included)...[facility]06-28-2023 History of Present illness Narrative* Lukasz [...] years as her is s/p vasectomy. Her Vascular Surgeon is Dr. Garcia and Dr. Moore The history is provided by the patient. ROS: Review of Systems Constitutional: Negative for activity change, appetite change, fatigue, fever and unexpected weightchange. Cardiovascular: Negative for chest pain and palpitations. Gastrointestinal: Positive for abdominal pain. Negative for constipation, diarrhea, nausea and vomiting. Genitourinary: Positive for pelvic pain. Negative for vaginal bleeding, vaginal discharge and vaginal pain. 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 Lukasz Ebuanks MD, MS Gynecologic Oncologist documented in this encounterMercy Health03-27-2023 Hospital Discharge instructions Patient Education 08/15/2022 16:51:47 ED Pain Management (04/2018)(CUSTOM) WELCOME Pain Management in our Emergency/Acute Care Facility Our staff understands that pain relief is important when someone is hurt or needs emergency care. However, providing ongoing pain relief is often complex. We recommend this be done through your primary health care provider such as your family doctor or paint pourer. Because mistakes or misuses of pain medication [...] show a valid photo ID (like a front load trash truck driver's license) when you check into the [...] or other controlled substance, we check the [place] Automated Rx Reporting system (OARRS) or a [...] Monday: or call the Crisis Intervention [facility] at [phone]. It is against the law to attempt to obtain controlled substance pain medicines by deceiving the health care provider caring for you. This can include getting multiple prescriptions from more than oneprovider or using someone else s name to obtain a prescription. Follow Up Care 08/15/2022 15:50:06 With:ALEENA LONDON MD Address: [facility] [place] [address] [phone] When:2-4 days [facility] 03-27-2023 Note Discharge Instructions Thank you for allowing [place] to assist you with your healthcare needs. The following is importantdischarge information regarding your hospital visit. Diagnosis from Today's Visit Lower leg pain-swelling What to Do Next Instructions from Your Care Team No qualifying data available. Post Acute Orders No qualifying data available. You Need to Schedule the Following Appointments Follow Up with ALEENA LONDON MD When Within 2-4 days Where: [facility] [address] [place] [address]- [phone] Allergies Latex (Rash) penicillin (Rash) Medications Please [...] such as your family doctor or paint pourer. Because mistakes or misuses of pain medication [...] show a valid photo ID (like a front load trash truck driver's license) when you check into the [...] or other controlled substance, we check the [place] Automated Rx Reporting system (OARRS) or a [...] or call the Crisis Intervention Center of [facility] at [phone]. It is against the law to attempt [...] to receive it can visit one of [facility] vaccine clinics. There are many vaccine clinic locations within the [facility]. For locations and available times, please visit www.gettheshot.coronavirus.[place].gov/. It is important to note that some COVID mobile vaccine clinics are held outdoors and may be canceled in rainy or stormy conditions. To learn more about pediatric vaccinations (ages 5-11), we invite you to visit the [facility] webpage. https://www.[email or web address].org/pages/1806-Jrfek-Icurggvqaid-Sowndjlskn-Tjxyg-Kul stions.htmlTo learn more about the COVID-19 vaccine, we invite you to visit the CDC website for a list of frequently asked questions. https://www.cdc.gov/coronavirus/2019-ncov/vaccines/faq.html [facility] RECESS. Patient Portal Access Instructions: Stay connected with your healthcare team and access your personal medical information anytime with the [employer] Patient Portal. If you would like a full copy of your medical records please contact the [facility] Medical Records Department Monday through Monday between 8a.m. and 4:30p.m. Please follow the directions below to access the portal: 1.Access the email account you provided upon registration to the [facility].2.Look for an invitation email from [facility].3.Open the email and access the invitation link: Accept Invitation to [facility]4.Fill in the required still to create your account. Sign into www.[employer] with your username and password that you [...] you will allow to register on the [employer] Patient Portal for access to your information. You can also access the [employer] Patient Portal on the [employer] deidre. Simply click on Health Records under [employer] and then click on the [employer] logo. HOW TO SAFELY DISPOSE OF PRESCRIPTION [...] Call your local pharmacy or go to http://bit.Xango.com/4U0Jn7b to find one close to you.3.Make use of household items: Use cat litter or old coffee grounds to dispose medications if other options arenot available. Mix your drugs with these household products, seal them in an airtight container andthrow it into the garbage. Call [facility]: [phone] to be sure your drugs can be [...] been reviewed and explained to me and IMIGUEL ASHLEY M understand my current condition and have read and understand these discharge instructions. I have received a written copy of the plan/instructions. If I have questions, I am aware that I should contact my doctor. 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 Signature: Date/Time: Relationship to Patient: Witness Name/Signature: Date/Time: [facility]08-12-2021 History of Present illness Narrative * Myrna Kumar RT(R) - 12/31/2020 1:00 PM EDT Radiology [...] 31, 2020 1:01 PM documented in this encounterMercy Health02-04-2021 History of Present illness Narrative* Zully Arana [...] 25, 2020 3:44 PM documented in this encounterMercy Health12-09-2018 History of Past illness Narrative* Problem Noted [...] of this encounter (statuses as of 02/03/2023) [facility] of Past illness Narrative* Problem Noted [...] of this encounter (statuses as of 07/08/2023) [facility] of Past illness Narrative* Problem Noted [...] of this encounter (statuses as of 08/30/2023) [facility] Author Dr. Jacobs [facility] June 10, 2022 11:20am Note Date/Time June 10, 2022 9 :38am [facility] Medical Records Department [address] [place] [address] Emergency Department Summary 06/10/22 MR#: [id number] Acct: [id number] Name: LANA RIVERA Rep #:[id number] : 1985 37 From: Sorin Jacobs MD [...] return to the emergency room with imaging. [facility] Medical History Abdominal pain Acute bronchitis, [...] % (Auto) 56.4 Lymph % (Auto) 26.4 Rawlins % (Auto) 8.3 Eos % (Auto) 8.0 [...] your Primary Care Provider. Call [facility] ([phone]) or report to the closest Emergency Room. Call 911 if necessary. 06/10/22 1120 <Electronically signed by Sorin Jacobs MD> Cosigner Signature (if applicable): CC: Dr. Aleena London MD ~ Signed [facility] Work Phone: Discharge summary Author Yusuf Apple [facility] February 14, 2023 7:59am Note Date/Time February 14, 2023 7:56am [facility] Medical Records Department [address] [place] [address] Instructions for Home/Discharge Instructions 02/14/23 0756 MR#: [id number] Acct: [id number] Name: LANA RIVERA Rep #:[id number] : 1985 37 From: Yusuf Apple DO PCP: Dr. Aleena London MD Status:R EG [facility] Discharge Instructions Diet Discharge Diet: No restrictions [...] % cream with perineal applicator 1 applic GA QD-BID PRN (Reason: itching) Qty: 30 2RF [...] 02/14/23 0759<Electronically signed by Yusuf Apple DO>Yusuf pAple DO CC: Dr. Aleena London MD ~ Signed [facility] Work Phone: Discharge summary Author Ry Enamorado [facility] May 04, 2023 1:14pm Note Date/Time May 04, 2023 1:06pm [facility] Medical Records Department [address] [place] [address] Emergency Department Summary 05/04/23 MR#: [id number] Acct: [id number] Name: LANA RIVERA Rep #:[id number] : 1985 38 From: Ry Enamorado MD [...] sclera of her right eye. Saw her investigative agent at [facility] told her it was a subconjunctival [...] your Primary Care Provider. Call [facility] ([phone]) or report to the closest Emergency Room. Call 911 if necessary. 05/04/23 1314 <Electronically signed by Ry Enamorado MD> Cosigner Signature (if applicable): CC: Dr. Aleena London MD ~ Signed [facility] Work Phone: Evaluation + Plan note No data available for this section [facility] Evaluation note* Diagnosis Onset Date Resolution Status [...] abdominal pain acute Tinnitus acute Vertigo acute [facility] Work Phone: Evaluation note* Diagnosis Onset Date [...] (nonalcoholic steatohepatitis) acute Chronic RUQ pain chronic [facility] Work Phone: Evaluation note* Diagnosis Onset Date [...] Palpitations acute Menorrhagia with irregular cycle acute [facility] Work Phone: Evaluation note* Diagnosis Onset Date [...] acute 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 [facility] Work Phone: Evaluation note* Diagnosis Onset Date [...] Irritant contact dermatitis due to plant acute [facility] Work Phone: Evaluation note* Diagnosis Onset Date [...] upper extremities chronic Vitamin d deficiency chronic [facility] Work Phone: Evaluation note* Diagnosis Onset Date [...] deficiency chronic Menorrhagia with irregular cycle acute [facility] Work Phone: Evaluation note* Diagnosis Onset Date [...] (nonalcoholic steatohepatitis) acute Chronic RUQ pain chronic [facility] Work Phone: Evaluation note* Diagnosis Onset Date [...] (nonalcoholic steatohepatitis) acute Chronic RUQ pain chronic [facility] Work Phone: Evaluation note* Diagnosis Onset Date [...] Menorrhagia with irregular cycle acute 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's 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 Metabolic syndrome chronic NAFLD (nonalcoholic fatty liver disease) acute Obesity acute Fibromyalgia affecting multiple sites acute Meralgia paresthetica of left side acute Sciatica, right side acute Strain of lumbar region acut e Low back pain chronic [facility] Work Phone: Evaluation note* Diagnosis Onset Date [...] Menorrhagia with irregular cycle acute Almaz's 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 Metabolic syndrome chronic NAFLD (nonalcoholic fatty liver disease) acute Obesity acute Fibromyalgia affecting multiple sites acute Meralgia paresthetica of left side acute Sciatica, right side acute Strain of lumbar region acut e Low back pain chronic Chronic low back pain noneac tive Fibromyalgia noneactive [facility] Work Phone: Evaluation note* Diagnosis Onset Date Resolution Status Menorrhagia with irregular cycle acute Early satiety acute MARCELINO (nonalcoholic steatohepatitis) acute Chronic RUQ pain resolved Type 2 diabetes mellitus acu te Essential hypertension chron ic Localized swelling, mass and lump, neck resolved Obesity resolved Menorrhagia with irregular cycle acute Almaz's 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 Metabolic syndrome chronic NAFLD (nonalcoholic fatty [...] syndrome chronic PCOS (polycystic ovarian syndrome) chronic [facility] Work Phone: Evaluation note* Diagnosis Onset Date Resolution Status Menorrhagia with irregular cycle acute Early satiety acute MARCELINO (nonalcoholic steatohepatitis) acute Chronic RUQ pain resolved Type 2 diabetes mellitus acu te Essential hypertension chron ic Localized swelling, mass and lump, neck resolved Obesity resolved Menorrhagia with irregular cycle acute Almaz's 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 Metabolic syndrome chronic NAFLD (nonalcoholic fatty [...] acute Postoperative pain acute Urinary hesitancy acute [facility] Work Phone: Evaluation note* Diagnosis Onset Date Resolution Status Menorrhagia with irregular cycle acute Early satiety acute MARCELINO (nonalcoholic steatohepatitis) acute Chronic RUQ pain resolved Type 2 diabetes mellitus acu te Essential hypertension chron ic Localized swelling, mass and lump, neck resolved Obesity resolved Menorrhagia with irregular cycle acute Almaz's 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 Metabolic syndrome chronic NAFLD (nonalcoholic fatty [...] pain chronic Hypertension chronic Tobacco abuse chronic [facility] Work Phone: Evaluation note* Diagnosis Onset Date Resolution Status Early satiety acute MARCELINO (nonalcoholic steatohepatitis) acute Chronic RUQ pain resolved Type 2 diabetes mellitus acu te Localized swelling, mass and lump, neck resolved Obesity resolved Almaz's 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 Metabolic syndrome chronic Menorrhagia with irregular [...] disorder with panic attacks chronic Almaz's 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 Hypertension chronic Metabolic syndrome chronic PCOS (polycystic ovarian syndrome) chronic Personal history of malignant melanoma chronic Tobacco abuse chronic Abdominal pain resolved Chest pain resolved History of hypertension reso lved [facility] Work Phone: Evaluation note* Diagnosis Onset Date Resolution Status Type 2 diabetes mellitus acu te Localized swelling, mass and lump, neck resolved Obesity resolved Almaz's 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 Metabolic syndrome chronic Menorrhagia with irregular [...] disorder with panic attacks chronic Almaz's 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 Hypertension chronic Metabolic syndrome chronic PCOS (polycystic ovarian syndrome) chronic Personal history of malignant melanoma chronic Tobacco abuse chronic Abdominal pain resolved Chest pain resolved History of hypertension reso lved Postoperative abscess acute Postoperative abscess acute Postoperative pain acute S/P vaginal hysterectomy acu te [facility] Work Phone: Evaluation note* Diagnosis Onset Date Resolution Status 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's 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 Metabolic syndrome chronic Menorrhagia with irregular [...] disorder with panic attacks chronic Almaz's 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 Hypertension chronic Metabolic syndrome chronic PCOS (polycystic ovarian syndrome) chronic Personal history of malignant melanoma chronic Tobacco abuse chronic Abdominal pain resolved Chest pain resolved History of hypertension reso lved Postoperative abscess acute Postoperative abscess acute Postoperative pain acute S/P vaginal hysterectomy acu te Nicotine dependence, cigarettes, uncomplicated resolved Ovarian cyst acute Postoperative abscess acute Postoperative pain acute Almaz's 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 Hypertension chronic Vitamin d deficiency chronic Fatigue noneactive Varicose vein of leg noneact jimmie [facility] Work Phone: Evaluation note* Diagnosis Onset Date [...] disorder with panic attacks chronic Almaz's 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 Hypertension chronic Metabolic syndrome chronic PCOS (polycystic ovarian syndrome) chronic Personal history of malignant melanoma chronic Tobacco abuse chronic Abdominal pain resolved Chest pain resolved History of hypertension reso lved Postoperative abscess acute Postoperative abscess acute Postoperative pain acute S/P vaginal hysterectomy acu te Nicotine dependence, cigarettes, uncomplicated resolved Ovarian cyst acute Postoperative abscess acute Postoperative pain acute Almaz's 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 Hypertension chronic Vitamin d deficiency chronic Fatigue noneactive Varicose vein of leg noneact jimmie Ovarian cyst acute Acute bronchitis noneactive [facility] Work Phone: Evaluation note* Diagnosis Onset Date [...] disorder with panic attacks chronic 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's 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 Hypertension chronic Metabolic syndrome chronic PCOS (polycystic ovarian syndrome) chronic Personal history of malignant melanoma chronic Tobacco abuse chronic Abdominal pain resolved Chest pain resolved History of hypertension reso lved Postoperative abscess acute Postoperative abscess acute Postoperative pain acute S/P vaginal hysterectomy acu te Nicotine dependence, cigarettes, uncomplicated resolved Ovarian cyst acute Postoperative abscess acute Postoperative pain acute 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's 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 Hypertension chronic Vitamin d deficiency chronic Fatigue noneactive Varicose vein of leg noneact jimmie Ovarian cyst acute Acute bronchitis noneactive NAFLD (nonalcoholic fatty liver disease) chronic RUQ abdominal pain chronic [facility] Work Phone: Evaluation note* Diagnosis Onset Date Resolution Status Postoperative pain acute Urinary hesitancy resolved Class II obesity acute Fibromyalgia affecting multiple sites acute MARCELINO (nonalcoholic steatohepatitis) acute Postoperative abscess acute Postoperative pain acute S/P vaginal hysterectomy acu te Sciatica, right side acute Type 2 diabetes mellitus acu te Chronic back pain chronic 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 Almza's 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 Hypertension chronic Metabolic syndrome chronic PCOS (polycystic ovarian syndrome) chronic Personal history of malignant melanoma chronic Tobacco abuse chronic Abdominal pain resolved Chest pain resolved History of hypertension reso lved Postoperative abscess acute Postoperative abscess acute Postoperative pain acute S/P vaginal hysterectomy acu te Nicotine dependence, cigarettes, uncomplicated resolved Ovarian cyst acute Postoperative abscess acute Postoperative pain acute Almaz's 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 Hypertension chronic Vitamin d deficiency chronic Fatigue noneactive Varicose vein of leg noneact jimmie Ovarian cyst acute Acute bronchitis noneactive NAFLD (nonalcoholic fatty liver disease) chronic RUQ abdominal pain chronic [facility] Work Phone: Evaluation note* Diagnosis Onset Date Resolution Status Ovarian cyst acute Acute bronchitis noneactive NAFLD (nonalcoholic fatty liver disease) chronic RUQ abdominal pain chronic Pectoralis muscle strain non eactive Cough acute Anxiety and depression chron ic Hypertension chronic Left shoulder pain chronic Left shoulder pain chronic [facility] Work Phone: Evaluation note* Diagnosis Onset Date Resolution Status NAFLD (nonalcoholic fatty liver disease) chronic RUQ abdominal pain chronic Pectoralis muscle strain non eactive Cough acute Anxiety and depression chron ic Hypertension chronic Left shoulder pain chronic Left shoulder pain chronic Carpal tunnel syndrome of right wrist noneactive [facility] Work Phone: Evaluation note* Diagnosis Onset Date Resolution Status Pectoralis muscle strain non eactive Cough acute Anxiety and depression chron ic Hypertension chronic Left shoulder pain chronic Left shoulder pain chronic Carpal tunnel syndrome of right wrist noneactive Carpal tunnel syndrome of right wrist noneactive [facility] Work Phone: Evaluation note* Diagnosis Onset Date Resolution Status Pectoralis muscle strain non eactive Cough acute Anxiety and depression chron ic Hypertension chronic Left shoulder pain chronic Left shoulder pain chronic Carpal tunnel syndrome of right wrist noneactive Carpal tunnel syndrome of right wrist noneactive NAFLD (nonalcoholic fatty liver disease) chronic RUQ abdominal pain chronic [facility] Work Phone: Evaluation note* Diagnosis Onset Date [...] e Possible exposure to STD non eactive [facility] Work Phone: Evaluation note* Diagnosis Onset Date [...] e Possible exposure to STD non eactive [facility] Work Phone: Evaluation note* Diagnosis Onset Date [...] Anxiety and depression chron ic Hypertension chronic [facility] Work Phone: Evaluation note* Diagnosis Onset Date [...] left acute Lumbar facet joint syndrome acute [facility] Work Phone: Evaluation note* Diagnosis Onset Date [...] viral diseases acute Acute sinusitis, unspecified resolved [facility] Work Phone: Evaluation note* Diagnosis Onset Date [...] Acute sinusitis, unspecified resolved Orthopedic aftercare acute [facility] Work Phone: Evaluation note* Diagnosis Onset Date [...] Acute sinusitis, unspecified resolved Orthopedic aftercare acute [facility] Work Phone: Evaluation note* Diagnosis Onset Date [...] Orthopedic aftercare acute Climacteric acute Mastalgia acute [facility] Work Phone: Evaluation note* Diagnosis Onset Date [...] Orthopedic aftercare acute Climacteric acute Mastalgia acute [facility] Work Phone: Evaluation note* Diagnosis Onset Date [...] liver disease) chronic RUQ abdominal pain chronic [facility] Work Phone: Evaluation note* Diagnosis Pelvic pain in female- Primary Unspecified symptom associated with female genital organs [facility] Diagnosis Onset Date Resolution Status Climacteric [...] acu te Pelvic pain acute Vaginitis acute [facility] Work Phone: Evaluation note* Diagnosis Onset Date [...] acu te Pelvic pain acute Vaginitis acute [facility] Work Phone: Evaluation note* Diagnosis NO SHOW- Primary [facility] Diagnosis Onset Date Resolution Status Herniated [...] chronic RUQ abdominal pain chronic Vaginitis acute [facility] Work Phone: Evaluation note* Diagnosis Onset Date [...] chronic Vaginitis acute Class II obesity chronic [facility] Work Phone: Evaluation note* Diagnosis Onset Date [...] Acute pharyngitis acute Breast pain, right acute [facility] Work Phone: Evaluation note* Diagnosis Pain- Primary [facility]ized [facility] [place] [facility] Diagnosis Preoperative examination- Primary Preoperative examination, [...] of left shoulder [facility] [place] [facility] Diagnosis Preoperative examination- Primary Preoperative examination, [...] acute or chronic documented in this encounter [facility] note* Diagnosis Onset Date Resolution Status Dermatitis [...] liver disease) chronic RUQ abdominal pain chronic [facility] Work Phone: Evaluation note* Diagnosis Plantar fasciitis- Primary Plantar fascial fibromatosis [facility] Author Yusuf Apple [facility] February 14, 2023 7:11am Note Date/Time February 14, 2023 7:11am [facility] Medical Records Department [address] [place] [address] History & Physical Exam 02/14/23 0711 MR#: [id number] Acct: [id number] Name: LANA RIVERA Rep #:[id number] : 1985 37 From: Yusuf Apple DO PCP: Dr. Aleena London MD Status:R EG [facility] [place] Location: [place] [address] History and Physical Date of Admission: 02/14/23 [facility] [address] [place] [address] OFFICE VISIT Date of Service: 11/18/22 MR#: [id number] Acct: [id number] Name: LANA RIVERA Rep #: [id number] : 1985 Provider: Dr. Yusuf Apple DO Age/Sex: 37/F [place] [email or web address] Status: Signed Intake Vital Signs 09/02/2309:43 11/09/2315:37 [...] by me, Dr. Yusuf Apple, DO 11/18/22 5334. LANA RIVERA is a 37 year old F here today for f/u after having [facility] EM[facility]. Pt. states that her pain and numbness [...] are no clinicalchanges since date of exam. 02/14/23710 <Electronically signed by Yusuf Apple DO> Cosigner Signature (if applicable): CC: Dr. Aleena London MD; Dr. Yusuf Apple DO~ Signed [facility]charge instructions Additional Instructions Do not take your cyclobenzaprine. Take Valium as prescribed as needed. Start your Cymbalta as prescribed by your pain doctor. Start your steroids a report is at the pharmacy. We discussed with Dr. Avilez for possible tramadol as he noted on his consult if needed. Follow- up with your doctors.[facility] Work Phone: Hospital Discharge instructions Additional Instructions Please follow-up outpatient.[facility] Work Phone: Hospital Discharge instructions Additional Instructions Follow-up with Dr. Tracy and your statistical typist.[facility] Work Phone: Hospital Discharge instructions Additional Instructions Today your cardiac work-up was normal. Based on your examination I think you have musculoskeletal pain in the trapezius and shoulder area and prescribed a different muscle relaxer you can try. You can also add Tylenol 1000 mg every 6 hours to your regimen of ketoprofen. Please follow-up with your primary care doctor.[facility] Work Phone: Hospital Discharge instructions Additional Instructions UpPlease follow-up with your CARTRIDGE ASSEMBLER for this pain. Lives at antibiotic ointment to the open wounds in your left groin. I we have referred you to general surgery for further evaluation of these lymph nodes and pain in your thigh. You can continue to take your anti-inflammatory (ketoprofen) for pain. Apply cool compresses to the area.[facility] Work Phone: Hospital Discharge instructions Additional Instructions [...] discuss further pain management. You can try [id number] 4% exercise Lidoderm patches. Please continue to follow-up with your outpatient ultrasound for your lymph nodes and with surgery as well. I would recommend that you follow-up with your mexican food machine tender. I will give you information for a spine doctor in case this pain is actually coming from your back.[facility] Work Phone: Hospital Discharge instructions Additional Instructions Take baby aspirin every day along with warm/hot compresses to affected area 2-3 times daily until pain resolved.[facility] Work Phone: Hospital Discharge instructions Additional Instructions This should improve over the next week.[facility] Work Phone: Reason for referral (narrative)* Diagnostic Procedure Only (Routine) - Authorized Specialty Diagnoses / Procedures Referred By Contac [email or web address] Referred To Contact XR IMAGING Diagnoses Pain Procedures XR FOOT GENERAL 3V AP/LAT/OBL RIGHT RADEX FOOT COMPLETE MINIMUM 3 VIEWS Patrick Fontaine [address] [place] [address] [place] [address] Referral ID Status Reason Start Date Expiration Date Visits Requested Visits Authorized [id number] Authorized Auto-Generat ed Referral 11/20/2023 12/19/2024 1 1 [facility] for referral (narrative)* Diagnostic Procedure Only (Urgent) - Closed Specialty Diagnoses / Procedures Referred By Elaina wyman Referred To Contact XR IMAGING Diagnoses Acute pain of left shoulder Procedures XR SHOULDER GENERAL 3V OR MORE AP/TRUE AP/OTHER LT X-RAY SHOULDER COMPLET MIN 2 VIEWS Kavita Jurado, PATerrieC [address] [place] [address] [place] [address] Referral ID Status Reason Start Date Expiration Date V isits Requested Visits Authorized Closed Auto-Generate d Referral 12/31/2020 01/30/2022 1 1 [facility] for visit Narrative* Diagnostic Procedure Only (Urgent) - Closed Specialty Diagnoses / Procedures Referred By Contac t Referred To Contact XR IMAGING Diagnoses Acute pain of left shoulder Procedures XR SHOULDER GENERAL 3V OR MORE AP/TRUE AP/OTHER LT X-RAY SHOULDER COMPLET MIN 2 VIEWS Kavita Jurado PA-C [address] [place] [address] [place] [address] Referral ID Status Reason Start Date Expiration Date V isits Requested Visits Authorized Closed Auto-Generate d Referral 12/31/2020 01/30/2022 1 1 [facility] Summary Purpose Family History No Family History [...] No August 20, 2021 3:48pm Power of Lead Web Application Developer No August 20 3:48pm Advance Directive Response Recorded Date/ Time Advance Directives No June 29, 2021 12:31pm Living Will No August 25, 2021 10:11pm Power of Lead Web Application Developer No August 25 10:11pm Advance Directive Response Recorded Date/ Time Advance Directives No June 29, 2021 12:31pm Living Will No November 27, 2021 1 :20am Power of Lead Web Application Developer No November 27, 2021 1:20am Advance Directive Response Recorded Date/ Time Advance Directives No December 14 10:42am Living Will No December 23, 2021 10:29pm Power of Lead Web Application Developer No December 23 10:29pm Advance Directive Response Recorded Date/ Time Advance Directives No December 24 9:47am Living Will No December 24, 2021 9:47am Power of Lead Web Application Developer No December 24 9:47am Advance Directive Response Recorded Date/ Time Advance Directives No December 24 9:47am Living Will No February 15, 2022 11:42am Power of Lead Web Application Developer No January 11:42am Advance Directive Response Recorded Date/ Time Advance Directives No December 24 9:47am Living Will No March 04 2:10pm Power of Lead Web Application Developer No March 04, 2022 2:10pm Advance Directive Response Recorded Date/ Time Advance Directives No December 24 9:47am Living Will No March 12 12:40pm Power of Lead Web Application Developer No March 12, 2022 12:40pm Advance Directive Response Recorded Date/ Time Advance Directives No December 24 9:47am Living Will No March 22 5:41pm Power of Lead Web Application Developer No March 22, 2022 5:41pm Advance Directive Response Recorded Date/ Time Advance Directives No December 24 8:47am Living Will No March 30 3:11pm Power of Lead Web Application Developer No March 30, 2022 3:11pm Advance Directive Response Recorded Date/ Time Advance Directives No December 24 8:47am Living Will No April 12 4:52pm Power of Lead Web Application Developer No April 12, 2022 4:52pm Advance Directive Response Recorded Date/ Time Advance Directives No December 24 8:47am Living Will No April 12 8:56pm Power of Lead Web Application Developer No April 12, 2022 8:56pm Advance Directive Response Recorded Date/ Time Advance Directives No December 24 8:47am Living Will No April 18 5:38pm Power of Lead Web Application Developer No April 18, 2022 5:38pm Advance Directive Response Recorded Date/ Time Advance Directives No December 24 8:47am Living Will No May 22 11:57pm Power of Lead Web Application Developer No May 22 11:57pm Advance Directive Response Recorded Date/ Time Advance Directives No December 24 8:47am Living Will No June 10 9:17am Power of Lead Web Application Developer No June 10, 2022 9:17am Advance Directive Response Recorded Date/ Time Advance Directives No December 24 8:47am Living Will No July 17 7:06pm Power of Lead Web Application Developer No July 17, 2022 7:06pm Advance Directive Response Recorded Date/ Time Advance Directives No December 24 9:47am Living Will No July 17 8:06pm Power of Lead Web Application Developer No July 17, 2022 8:06pm Advance Directive Response Recorded Date/ Time Advance Directives No December 24 9:47am Living Will No August 26, 2022 3:23pm Power of Lead Web Application Developer No August 26 3:23pm Advance Directive Response Recorded Date/ Time Advance Directives No December 24 9:47am Living Will No November 08, 2022 4:52pm Power of Lead Web Application Developer No November 08 4:52pm Advance Directive Response Recorded Date/ Time Advance Directives No December 24 9:47am Living Will No November 19, 2022 9 :51pm Power of Lead Web Application Developer No November 19, 2022 9:51pm Advance Directive Response Recorded Date/ Time Advance Directives No November 24 2:09pm Living Will No November 25, 2022 2 :14pm Power of Lead Web Application Developer No November 25, 2022 2:14pm Advance Directive Response Recorded Date/ Time Advance Directives No December 13 10:51am Living Will No December 13, 2022 10:51am Power of Lead Web Application Developer No December 13 10:51am Advance Directive Response Recorded Date/ Time Advance Directives No December 13 10:51am Living Will No December 25, 2022 1:19pm Power of Lead Web Application Developer No December 25 1:19pm Advance Directive Response Recorded Date/ Time Advance Directives No December 13 10:51am Living Will No February 04, 2023 7:53pm Power of Lead Web Application Developer No January 7:53pm Advance Directive Response Recorded Date/ Time Advance Directives No December 13 10:51am Living Will No February 08, 2023 6:47pm Power of Lead Web Application Developer No January 6:47pm Advance Directive Response Recorded Date/ Time Advance Directives No January 10:58am Living Will No February 10, 2023 10:58am Power of Lead Web Application Developer No January 10:58am Advance Directive Response Recorded Date/ Time Advance Directives No March 16, 2023 7:15am Living Will No March 16 7:15am Power of Lead Web Application Developer No March 16, 2023 7:15am Advance Directive Response Recorded Date/ Time Advance Directives No March 16, 2023 7:15am Living Will No April 17, 023 4:04pm Power of Lead Web Application Developer No April 17, 2023 4:04pm Advance Directive Response Recorded Date/ Time Advance Directives No March 16, 2023 7:15am Living Will No May 04, 12:57pm Power of Lead Web Application Developer No May 04, 2023 12:57pm Advance Directive Response Recorded Date/ Time Advance Directives No March 16, 2023 7:15am Living Will No July 18 10:49pm Power of Lead Web Application Developer No July 18, 2023 10:49pm Advance Directive Response Recorded Date/ Time Advance Directives No March 16, 2023 7:15am Living Will No July 25, 2023 8:51pm Power of Lead Web Application Developer No July 24 8:51pm Advance Directive Response Recorded Date/ Time Advance Directives No August 07, 024 8:42am Living Will No August 08, 2023 8:42am Power of Lead Web Application Developer No August 07 8:42am Advance Directive Response Recorded Date/ Time Advance Directives No March 16, 2023 8:15am Living Will No July 25, 2023 9:51pm Power of Lead Web Application Developer No July 24 9:51pm Advance Directive Response Recorded Date/ Time Advance Directives No March 16, 2023 8:15am Living Will No September 08, 2023 10:23am Power of Lead Web Application Developer No September 07 10:23am Advance Directive Response Recorded Date/ Time Advance Directives No March 16, 2023 8:15am Living Will No September 29, 2023 3 :36pm Power of Lead Web Application Developer No September 29, 2023 3:36pm Chief Complaint and Reason for Visit Chief Complaint Back Pain, Fall 2 M FU PHONE-COLD SYMPTOMS COVID TEST bp issues 6-8 WK F/UP RUQ PAIN abd pain anxiety /insomnia enlarged liver & spleen FATTY LIVER CP/ANXIETY/REF. 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) 6 WK FU DIZZY SPELLS ABD PAIN neck pain CHEST CONGESTION/COUGH consult ablation ER FU fluid in ears AUB CP/[facility] CERVICAL/ RX HERE 1 MO FU AUB [...] inner thigh PALPS HTN CHEST PAIN 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) 6 WK FU DIZZY SPELLS ABD PAIN neck pain CHEST CONGESTION/COUGH consult ablation ER FU fluid in ears AUB CP/[facility] CERV[facility]/ RX HERE 1 MO FU AUB [...] Almaz's thyroiditis 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) 6 WK FU DIZZY SPELLS ABD PAIN neck pain CHEST CONGESTION/COUGH consult ablation ER FU fluid in ears AUB /[facility] CERVICAL/ RX HERE 1 MO FU AUB [...] consult ablation [facility] in [facility]/ RX HERE 1 MO FU AUB [...] Chief Complaint ER FU fluid in ears AUB /[facility] CERV[facility]/ RX HERE 1 MO FU AUB [...] RUQ pain Chief Complaint fluid in ears AUB /[facility] CERV[facility]/ RX HERE 1 MO FU AUB [...] uncomplicated Ovarian cyst Postoperative abscess Postoperative pain Almza's thyroiditis Hypertension Vitamin d deficiency Fatigue Varicose [...] Referred By Elaina t Referred To Contact Vascular Surgeon Diagnoses Pelvic pain in female Procedures CONSULT TO GYNECOLOGY Lukasz Eubanks MD [address] [facility] [address] [place] [address] Fatmata England DO [address] [facility] [address] [place] [address] Referral ID Status Reason Start Date Expiration Date Visits Requested Visits Authorized [id number] Ref Not Required PCP Requested Referral 11/17/2022 11/16/2023 1 1 Additional Source Comments INFORMATION SOURCE (unrecogn ized section and content) DATE CREATED AUTHOR 11/15/2017 [facility] DATE CREATED AUTHOR AUTHOR'S ORGANIZ ATION 11/29/2017 [facility] DATE CREATED AUTHOR AUTHOR'S ORGANIZ ATION 07/07/2022 [facility] DATE CREATED AUTHOR AUTHOR'S ORGANIZ ATION 07/21/2022 [facility] DATE CREATED AUTHOR AUTHOR'S ORGANIZ ATION 10/11/2022 [facility] ([place] DATE CREATED AUTHOR AUTHOR'S ORGANIZ ATION 04/14/2023 [facility] DATE CREATED AUTHOR AUTHOR'S ORGANIZ ATION 07/09/2023 [facility] DATE CREATED AUTHOR AUTHOR'S ORGANIZ ATION 08/30/2023 [facility] DATE CREATED AUTHOR AUTHOR'S ORGANIZ ATION 06/26/2024 [facility] DATE CREATED AUTHOR AUTHOR'S ORGANIZ ATION 11/06/2024 [facility] DATE CREATED AUTHOR AUTHOR'S ORGANIZ ATION 12/19/2024 [facility] Goals (unrecognized section and content) Goals may [...] Provider, Refer ring Provider Active Rea Poon QUILL MACHINE TENDER, QUILL MACHINE TENDER-C Attending Provider Active Team Status: Inactive Member [...] Care Provider, Refer ring Provider Active Antonio RUSH, PA Attending Provider Active Team Status: Inactive Member Role Status Dates Dr. Aleena London MD Primary Care Provider Active Dr. Jossue Sanchez MD Attending Provider Active Team Status: Inactive Member Role Status Dates Dr. Aleena London MD Primary Care Provider, Refer ring Provider Active Libertad Stubbs QUILL MACHINE TENDER, QUILL MACHINE TENDER-C Attending Provider Active Team Status: Active Member [...] MD Primary Care Provider Active Rea Poon QUILL MACHINE TENDER, QUILL MACHINE TENDER-C Attending Provider, Referrin g Provider Active Dr. [...] MD Primary Care Provider Active Rea Poon QUILL MACHINE TENDER, QUILL MACHINE TENDER-C Attending Provider Active Team Status: Inactive Member Role Status Dates Dr. Aleena London MD Primary Care Provider Active Dr. Drake Le , DO Emergency Provider Active Team Status: Inactive Member Role Status Dates Dr. Aleena London MD Primary Care Provider Active Dr. Dimple Lynn DO Attending Provider, Refe rring Provider Active Team Status: Inactive Member Role Status Dates Dr. Aleena London MD Primary Care Provider Active Rea Poon QUILL MACHINE TENDER, QUILL MACHINE TENDER-C Attending Provider Active Team Status: Inactive Member Role Status Dates Dr. Aleena London MD Primary Care Provider, Refer ring Provider Active Hanh Balderas QUILL MACHINE TENDER, QUILL MACHINE TENDER-C Attending Provider Active Team Status: Inactive Member Role Status Dates Dr. Aleena London MD Primary Care Provider, Refer ring Provider Active Deysi Mcfarlane QUILL MACHINE TENDER, QUILL MACHINE TENDER-C Attending Provider Active Team Status: Active Member [...] MD Primary Care Provider Active Hanh Balderas QUILL MACHINE TENDER, QUILL MACHINE TENDER-C Attending Provider, Referring Provider Active Team Status: Inactive Member Role Status Dates Dr. Aleena London MD Primary Care Provider Active Dr. Ry Enamorado MD Emergency Provider Active Rv Technician Relationship Specialty Start Date End Date Dimple Lynn [address] [place] [address] CARTRIDGE ASSEMBLER 12/15/22 Team Status: Inactive Member Role Status [...] Care Provider, Refer ring Provider Active Greyson Lombardo PA PA Attending Provider Active Team Status: Inactive Member Role Status Dates Dr. Aleena London MD Primary Care Provider, Refer ring Provider Active Sabrina RUSH, PA Attending Provider Active Team Status: Active Member Role Status Dates Dr. Aleena London MD Primary Care Provider Active ADRI Whyte Attending Provider, Referring Provi tita Active Team Status: Inactive Member Role Status Dates Dr. Aleena London MD Primary Care Provider Active ADRI Whyte Attending Provider, Referring Provi tita Active Team [...] Dr. Greg Melgar DO Referring Provider Active Rv Technician Relationship Specialty Start Date End Date Nima Kaur MD [address] [place] [address] PCP - General Family Medicine 04/30/13 02/01/23 [...] MD Attending Provider, Referrin g Provider Active Rv Technician Relationship Specialty Start Date End Date Aleena London [address] [place] [address] PCP - General 07/27/23 Dimple Lynn [address] [place] [address] Vascular Surgeon 12/15/22 Team Status: Inactive Member Role Status [...] London MD Primary Care Provider Active Diana Gunn NP-C Attending Provider, Referring Pr ovider Active Dr. Irving Lobato MD Other Provider Active Team Status: Active Member Role Status Dates Dr. Aleena London MD Primary Care Provider Active Dr. Oscar Fuller MD Attending Provider, Refe rring Provider Active Team Status: Active Member Role Status Dates Dr. Aleena London MD Primary Care P rovider, Attending Provider, Referring Provider Active Rv Technician Relationship Specialty Start Date End Date Aleena London [address] [place] [address] PCP - General 07/27/23 Dimple Lynn [address] [place] [id number] Vascular Surgeon 12/15/22 Rv Technician Relationship Specialty Start Date End Date Nima Kaur MD [address] [place] [address] PCP - General Family Medicine 04/30/13 02/01/23 Rv Technician Relationship Specialty Start Date End Date Nima Kaur MD [address] [place] [address] PCP - General Family Medicine 04/30/13 02/01/23 Rv Technician Relationship Specialty Start Date End Date Aleena London MD [address] [place] [address] PCP - General Internal Medicine 03/13/21 Source Comments (unrecognize d section and content) In the event this informatio n is protected by the Federal Confidentiality of Alcohol and Drug Abuse Patient Records regulations: The Federal rules restrict any use of the information to criminally investigate or prosecute any alcohol or drug abuse patient.[facility] Health[facility] the event this information is protected by the Federal Confidentiality of Alcohol and Drug Abuse Patient Records regulations: The Federal rules restrict any use of the information to criminally investigate or prosecute any alcohol or drug abuse patient.[facility] HealthIn the event this information is protected by the Federal Confidentiality of Alcohol and Drug Abuse Patient Records regulations: The Federal rules restrict any use of the information to criminally investigate or prosecute any alcohol or drug abuse patient.[facility] the event this information is protected by the Federal Confidentiality of Alcohol and Drug Abuse Patient Records regulations: The Federal rules restrict any use of the information to criminally investigate or prosecute any alcohol or drug abuse patient.[facility] HealthIn the event this information is protected by the Federal Confidentiality of Alcohol and Drug Abuse Patient Records regulations: The Federal rules restrict any use of the information to criminally investigate or prosecute any alcohol or drug abuse patient.[facility] HealthIn the event this information is protected by the Federal Confidentiality of Alcohol and Drug Abuse Patient Records regulations: The Federal rules restrict any use of the information to criminally investigate or prosecute any alcohol or drug abuse patient.[facility] Reason for Visit (unrecogniz ed section and [...] BE BASED ON THE PRIMARY CLINICAL RECORDS. [facility]. provides no warranty or guarantee of the accuracy or completeness of information in this document.
[2024-12-20 21:41] LABS: Hematocrit 40.3 % (37-47); Hemoglobin 13.3 g/dL (12.0-15.0); Immature Granulocytes Count 0.020 X10^3/uL (0.0-0.0); Mean Corp Hgb Conc 33.0 g/dL (32-36); Mean Corpuscular Volume 85.2 fL (81-99); Mean Platelet Vol. 11.3 fl (6.2-12.0); NRBC Flagged by Analyzer 0 % (0-5); Platelet Count 164 K/mm3 (150-450); RBC Distribution Width CV 13.0 % (11.6-14.6); RBC Distribution Width SD 40.2 fl (35.1-43.9); Red Blood Count 4.73 M/mm3 (4.2-5.4); White Blood Count 6.2 K/mm3 (4.4-11.0)
[2024-12-20 22:16] LABS: Anion Gap 11 (5-15); BUN 11 mg/dL (4-19); BUN/Creat Ratio 13.4 RATIO (10-20); Calcium,Total 9.1 mg/dL (7.6-11.0); Carbon Dioxide 24.1 mmol/L (21.0-32.0); Chloride 104 mmol/L (98-108); Estimated Creatinine Clearance 117.25 ml/min (50-250); Glucose 111 mg/dL (70-99); Magnesium 1.9 mg/dL (1.5-2.2); Potassium 3.4 mmol/L (3.3-5.1)
[2024-12-20 22:44] LABS: Troponin T High Sensitivity < 6 ng/L (<=14)
[2024-12-20 23:00] VITALS: BP 117/76; PULSE 75; RESP 16; TEMP 36.6; O2SAT 100
== END 2024-12-20 23:24 | disposition home or self-care (01) ==
PROVIDERS: Emergency Provider Emergency Medicine; PCP Internal Medicine; Visit Provider Emergency Medicine
DX: R00.2 Palpitations (principal); F41.9 Anxiety disorder, unspecified; I10 Essential (primary) hypertension; F17.210 Nicotine dependence, cigarettes, uncomplicated; Z79.899 Other long term (current) drug therapy
CPT/HCPCS: 80048; 83735; 84484; 85025; 93005; 93225; 93226; 99283; A4216

== ENCOUNTER → 2024-12-20 | Outpatient (CLI) | payer MEDICAID, SELFPAY ==
--- OUTSIDE RECORDS SUMMARY | 2024-12-20 22:56 | XMS RPT_ITS | CCD ---
Author Organization [facility] Care Team Providers Care Vocational Rehabilitation Supervisor Name Role Phone Cassidy Moore MD Unavailable [phone] Sherrie PICKLE MAKER, Hanh S Unavailable [phone] Debora Quiroz Unavailable Unavailable Debora Quiroz Unavailable Unavailable Nima Kaur Unavailable Unavailable Angeles RN RN, Sneha Medrano Unavailable Unavailteresita Balderas PICKLE MAKER, Hanh S Unavailable [phone] Cassidy Moore MD Unavailable [phone] Dr. Aleena London Primary Care Provider 1(33 0) Dr. Aleena London Referring Provider [phone] ADRI Cho Attending Provider Unavailab Lynn PICKLE MAKER, PICKLE MAKER-C Deysi Attending Provider Dr. Aleena London Attending Provider [phone] Dr. Ralph Tracy Attending Provider 1(330) Dr. Royce Mckinney Attending Provider [phone] Cassidy Moore Attending Provider 1(330 ) Sherrie PICKLE MAKER, PICKLE MAKER-C Hanh Attending Provider [phone] Dr. Aleena London Primary Care Provider [phone] Dr. Aleena London Referring Provider [phone] ADRI Cho Attending Provider UnavailADRI Chen Attending Provider Cleve MARY, PICKLE MAKER-C Rea Desai Attending Provider 1(3 30) Dr. Aleena London Primary Care Provider [phone] Dr. Aleena London Referring Provider [phone] ADRI Cho Attending Provider Dr. Aleena Garcia Attending Provider [phone] Baldomero PICKLE MAKER, PICKLE MAKER-Shiraz Bermudez Attending Provider ADRI Freire Attending Provider Dr. Aleena London Primary Care Provider [phone] Dr. Aleena London Referring Provider [phone] Dr. Ralph Tracy Attending Provider ADRI Cho Attending Provider ADRI Lomax Other Provider [phone] Dr. Aleena London Primary Care Provider [phone] Dr. Aleena London Referring Provider [phone])2 Dr. Cassidy Moore Attending Provider [phone] Dr. Royce Mckinney Attending Provider Enoc PICKLE MAKER, PICKLE MAKER-C Libertad Attending Provider 1(330) Dr. Earnest Haynes [...] Dr. Aleena London Referring Provider [phone] Cleve PICKLE MAKER, PICKLE MAKER-C Rea Desai Attending Provider 1(3 30) Dr. [...] Aleena London Referring Provider [phone] Enoc MARY, PICKLE MAKER-C Libertad Attending Provider 1(330) Dr. Cassidy Moore Admit Provider [phone] Dr. Cassidy Moore Other Provider [phone] Dr. Aleena London Primary Care Provider 1(33 0) Dr. Aleena London Referring Provider [phone])2 Dr. Cassidy Moore Attending Provider 1(330 ) Cleve PICKLE MAKER, PICKLE MAKER-C Rea Desai Attending Provider 1(3 30) Dr. Aleena London Attending Provider [phone])2 Dr. Mo Washington Attending Provider [phone] ADRI Albert Attending Provider Dr. Jossue Sanchez Attending Provider [phone] Cassidy Moore Referring Provider 1(330 ) Enoc PICKLE MAKER, PICKLE MAKER-C Libertad Attending Provider 1(330) Dr. Cassidy Moore Admit Provider [phone] Dr. Cassidy Moore Other Provider [phone] Dr. Dimple Lynn Attending Provider 1(3 30) Dr. Aleena London Primary Care Provider [phone] Dr. Aleena London Referring Provider [phone])2 Dr. Cassidy Moore Attending Provider 1(330 ) Dr. Adele Aguila Emergency Provider Dr. Christiano Eduardo Other Provider Unavaila [facility] Lita, Dr. Blount Primary Care Provider 1(33 0) Dr. Aleena London Referring Provider [phone] Cleve PICKLE MAKER, PICKLE MAKER-C Rea Desai Attending Provider 1(3 30) Dr. Aleena London Primary Care Provider [phone] Dr. Aleena London Referring Provider [phone])2 Dr. Cassidy Moore Attending Provider 1(330 ) Cleve PICKLE MAKER, PICKLE MAKER-C Rea Desai Attending Provider [phone] Dr. Mo Washington Attending Provider ADRI Albert Attending Provider Dr. Jossue Sanchez Attending Provider Dr. Cassidy Moore Referring Provider 1(330 ) Enoc PICKLE MAKER, PICKLE MAKER-C Libertad Attending Provider 1(330) Dr. Cassidy Moore [...] [phone])2 Dr. Jossue Sanchez Attending Provider Enoc PICKLE MAKER, PICKLE MAKER-C Libertad Attending Provider [phone] Pending, Provider Primary Care Unavailable Dr. Argelia Paris Attending Unavail able Cleve PICKLE MAKER, PICKLE MAKER-C Rea Desai Attending Provider [phone] ALEENA [...] [phone] Dr. Epifanio Kong Attending Provider [facility] Attending Provider Unavailab duyen Stubbs PICKLE MAKER, PICKLE MAKER-C Libertad Attending Provider 1(330) Cleve PICKLE MAKER, PICKLE MAKER-C Rea Desai Attending Provider 1(3 30) LITA HARTMAN, ALEENA Fernandes Primary Care Physician (3 [phone]) ALAN QUINN DO Attending Unavailable LITA HARTMAN, ALEENA Fernandes Primary Care Unavailab duyen LONDON MD, ALEENA Fernandes Primary Care Unavailab BALDO Farah Attending Unavailable Dr. Aleena London Primary Care Provider 1(33 0) Dr. Aleena London Referring Provider [phone] Sherrie PICKLE MAKER, PICKLE MAKER-C Hanh Attending Provider 1(330 ) Maeve MARY, PICKLE MAKER-C Deysi Attending Provider Dr. Greg Enrique Attending [...] Dr. Aleena London Referring Provider [phone] Sherrie PICKLE MAKER, TYRA-Shiraz Schafer Attending Provider 1(330 ) Maeve MARY, PICKLE MAKER-C Deysi Attending Provider [phone] Dr. Greg Enrique Attending Provider [phone] [...] Dimple Lynn Attending Provider [phone] Sherrie PICKLE MAKER, PICKLE MAKER-C Hanh Attending Provider 1(330 ) Dr. Aleena London Primary Care Provider 1(33 0) Dr. Aleena London Referring Provider [phone])2 Dimple Lynn R Unavailable Dr. Aleena London Primary Care Provider 1(33 0) Dr. Aleena London Referring Provider [phone])2 Dr. Ralph Tracy Attending Provider 1(330) Dr. Dimple Lynn Attending Provider [phone] Sherrie PICKLE MAKER, TYRA-C Hanh Attending Provider 1(330 ) Dr. [...] Aleena London Referring Provider [phone] Rossana, Dr. oRsas Attending Provider 1(330) Dr. Dimple Lynn Attending Provider 1(3 30) Sherrie PICKLE MAKER, MARY ELLEN Schafer Attending Provider 1(330 ) [...] 342 ADRI Albert Attending Provider Sherrie MARY, PICKLE MAKER-C Hanh Attending Provider [phone] Dr. Aleena [...] DB JR., TOMASZ Referring Unavailable DB JR., INDEPENDENCE Admitting Unavailable OLEGHE, EFEWONGBE LISE Primary Care Unav ailable DB JR., INDEPENDENCE Referring Unavailable DB JR., INDEPENDENCE Admitting Unavailable OLEGHE, EFEWONGBE LISE Primary Care [...] OLEGHE, EFEWONGBE LISE Primary Care Unav ailable MARGARITA, BELKYS BROWN [...] Attending Unavailable Oleghe, Efewongbe Primary Care Unavailable [place], Greg Attending Unavailable Nuñez, Britany Referring Unavailable [...] Unavailable Oleghe, Efewongbe Primary Care Unavailable Sherrie PICKLE MAKER, Hanh Attending Unavailable Sherrie PICKLE MAKER, Hanh Referring Unavailable Oleghe, Efewongbe Primary Care Unavailable Iesha Loya Referring Unavailable Iesha Loya Attending Unavailable Oleghe, Efewongbe Primary Care Unavailable Greg Enrique Attending Unavailable Nuñez, Britany Consulting Unavailable Iva, Greg Referring Unavailable [place] Greg Consulting Unavailable Oleghe, Efewongbe Primary Care [...] Unavailable Oleghe, Efewongbe Primary Care Unavailable Sherrie PICKLE MAKER, Hanh Referring Unavailable [place] PICKLE MAKER, Hanh Attending Unavailable Oleghe, Efewongbe Primary Care Unavailable Luis Alfredo, Irving Referring Unavailable Luis Alfredo, Irving Attending Unavailable Oleghe, Efewongbe Primary Care Unavailable Greg Enrique Attending Unavailable [place], Greg Referring Unavailable Oleghe, Efewongbe Primary Care [...] Attending Unavailable Ry Enamorado Referring Unavailable Nuñez, Birtany Referring Unavailable Oleghe, Efewongbe Primary Care Unavailable Iva Greg Attending Unavailable Sigrid Ram Attending Unavailable Oleghe, Efewongbe Primary Care Unavailable Oleghe, Efewongbe Referring Unavailable Oleghe, Efewongbe Primary Care Unavailable Johner Iesha M Referring Unavailable Epifanio Kong Attending Unavailable Oleghe, Efewongbe Referring Unavailable Oleghe, Efewongbe Primary Care Unavailable Patrcik Gtz Attending Unavailable Oleghe, Efewongbe Referring Unavailable [...] Primary Care Unavailable Oleghe, Efewongbe Referring Unavailable Charlette Ricks Attending Unavailable Britany Nuñez Attending Unavailable [...] Primary Care Unavailable Ry Enamorado Referring Unavailable [place], Greg Attending Unavailable [facility] Primary Care Unavailable Britany Nuñez Referring Unavailable Greg Enrique Attending Unavailable [facility], Efewongbe Primary Care Unavailable Cassidy Moore Referring Unavailable Cassidy Moore Attending Unavailable Allergies Allergy Classification Reported Allergen(s) Allergy Type Date of Onset Reaction(s) Facility (20 sources) ondansetron; Translations: [[facility]ofran] [facility] drug [facility] 01-10-20 17 [facility] (1 source) ketorolac; Translations: [Toradol] Drug Allergy [facility] Repository (20 sources) Latex; Translations: [Latex] Propensity to adverse reactions to drug (disorder) 04-10-20 12 Eruption of skin (disorder), Rash [facility] Repository (20 sources) Penicillins; Translations: [penicillins] Propensity to adverse reactions to drug (disorder) 02-18-20 10 [facility] Repository (7 sources) Acetaminophen Drug Allergy 08-21-19 22 Other [facility] Work Phone: (20 sources) Dicyclomine; Translations: [DICYCLOMINE] Drug Allergy 05-27-19 16 Intolerance, GI Intolerance, Unknown [facility] (20 sources) Escitalopram; Translations: [ESCITALOPRAM] Drug Allergy 02-25-20 16 Headache, Unknown [facility] (20 sources) HYDROcodone; Translations: [HYDROCODONE] Drug Allergy 03-15-20 21 Unknown [facility] (20 sources) Ketorolac; Translations: [KETOROLAC] Drug Allergy 05-27-19 16 [facility] (20 sources) Naproxen; Translations: [NAPROXEN] Drug Allergy 11-10-19 17 Unknown, Other (See Comments), [facility] (20 sources) Ondansetron; Translations: [ONDANSETRON HCL] Drug Allergy 03-02-20 21 Migraine [facility] Repository (20 sources) Promethazine; Translations: [PROMETHAZINE] Drug Allergy 12-28-19 18 Unknown [facility] (20 sources) Sertraline; Translations: [SERTRALINE] Drug Allergy 02-25-20 16 Headache, Other (See Comments) [facility] (4 sources) Acetaminophen / HYDROcodone; Translations: [HYDROCODONE-ACET AMINOPHEN] Drug Allergy 02-25-20 22 Other (See Comments) [facility] Repository (1 source) Penicillin; Translations: [penicillins] Drug Allergy Eruption of skin (disorder) [facility] (7 sources) Escitalopram; Translations: [ESCITALOPRAM OXALATE] Drug Allergy 02-25-20 16 Other: See Comments [facility] Work Phone: (7 sources) Ondansetron; Translations: [ONDANSETRON HCL (PF)] Drug Allergy 08-17-19 13 Other: See Comments [facility] Work Phone: (7 sources) Promethazine; Translations: [PROMETHAZINE HCL] Drug Allergy 12-28-19 18 Unknown [facility] Work Phone: (7 sources) Sertraline; Translations: [SERTRALINE HCL] Drug Allergy 02-25-20 16 Other: See Comments [facility] Work Phone: (3 sources) Non-steroidal anti-inflammatory agent; Translations: [NSAIDS (NON-STEROIDAL ANTI-INFLAMMATORY DRUG)] Propensity to adverse reactions to drug 05-29-19 25 Unknown [facility] (1 source) Dicyclomine Drug Allergy 05-06-20 24 [facility] Repository (1 source) Escitalopram Drug Allergy 12-18-19 25 [facility] Rep[facility] (1 source) HYDROcodone Drug Allergy 12-18-19 25 [facility] (1 source) Ketorolac Drug Allergy 12-18-19 25 [facility] (1 source) Naproxen Drug Allergy 12-18-19 25 [facility] (1 source) Sertraline Drug Allergy 12-18-19 25 [facility] Rep[facility] (1 source) NSAIDS (Non-Steroidal Anti-Inflamma Drug allergy (disorder) 12-18-19 25 [facility] Repository Medications Current Medications Medication Drug Class(es) [...] Comment on above: Take 1 capsule by [facility] once daily for 30 days. azithromycin [...] Comment on above: Take 1 capsule by [facility] once daily. fluconazole 150 mg oral [...] and post prandial BLOOD GLUCOSE MONITORING SUPPL [id number] Cassidy Moore MD Start: 02-06-2017 End: 02-13-2017 FREESTYLE FREEDOM LITE w/Dev ice KIT Check blood sugar fast and post prandial BLOOD GLUCOSE MONITORING SUPPL [id number] Cassidy Moore MD BLOOD GLUCOSE MONITORING SUP PL (13 sources) Start: 02-06-2017 End: 02-13-2017 FREESTYLE FREEDOM LITE w/Dev ice KIT Check blood sugar fast and post prandial BLOOD GLUCOSE MONITORING SUPPL [id number] Cassidy Moore MD Start: 02-06-2017 End: 02-13-2017 FREESTYLE FREEDOM LITE w/Dev ice KIT Check blood sugar fast and post prandial BLOOD GLUCOSE MONITORING SUPPL [id number] Cassidy Moore MD BLOOD GLUCOSE MONITORING SUPPL (2 sources) Start: 02-06-2017 End: 02-13-2017 FREESTYLE FREEDOM LITE w/Device KIT Check blood sugar fast and post prandial BLOOD GLUCOSE MONITORING SUPPL [id number] Cassidy Moore MD cefdinir 300 mg oral [...] Sugar fasting and post prandial GLUCOSE BLOOD [id number] Cassidy Moore MD Start: 02-06-2017 End: 02-13-2017 FREESTYLE LITE TEST STRP Susan [facility]k Blood Sugar fasting and post prandial GLUCOSE BLOOD [id number] Cassidy Moore MD GLUCOSE BLOOD (13 sources) Start: 02-06-2017 End: 02-13-2017 FREESTYLE LITE TEST STRP Susan ck Blood Sugar fasting and post prandial GLUCOSE BLOOD [id number] Cassidy Moore MD Start: 02-06-2017 End: 02-13-2017 FREESTYLE LITE TEST STRP Susan ck Blood Sugar fasting and post prandial GLUCOSE BLOOD [id number] Cassidy Moore MD GLUCOSE BLOOD (2 sources) Start: 02-06-2017 End: 02-13-2017 FREESTYLE LITE TEST STRP Check Blood Sugar fasting and post prandial GLUCOSE BLOOD [id number] Cassidy Moore MD hydrocortisone 25 mg/ml topical [...] route once daily Nicotine Discontinued 0 TD .[facility] June 03, 2021 9:41am September 27, 2021 2:15pm apply 1-21 mg NICOTINE PATCH daily for 28 days; follow with 1-14 mg PATCH daily for 14 days, then 1-7mg PATCH daily for 14 days transdermal Start: 06-03-2021 apply 1 dose transde rmal route once daily, then apply 1 dose transdermal route once daily Nicotine Active 0 TD .[facility] June 03, 2021 9:41am apply 1-21 mg NICOTINE PATCH daily for 28 days; follow with 1-14 mg PATCH daily for 14 days, then 1-7mg PATCH daily for 14 days transdermal Start: 06-03-2021 End: 09-27-2021 Start: 06-03-2021 End: 09-27-2021 apply 1 dose transdermal route once daily, then apply 1 dose transdermal route once daily Nicotine Discontinued 0 TD .[facility] June 03, 2021 12:00am September 27, 2021 1:15pm apply 1-21 mg NICOTINE PATCH daily for 28 days; follow with 1-14 mg PATCH daily for 14 days, then 1-7mg PATCH daily for 14 days transdermal Start: 06-03-2021 End: 09-27-2021 apply 1 dose transdermal route once daily, then apply 1 dose transdermal route once daily Nicotine Discontinued 0 TD .[facility] June 03, 2021 1:00am September 27, 2021 [...] menstrual cycle Start: 03-15-2021 End: 06-03-2021 nystatin [id number] unt/ml topic al cream (20 sources) Polyene [...] q 6 hours as needed PROMETHAZINE HCL [id number] Cassidy Moore MD Oghnbuemf-[id number]-Sd rethindr (17 sources) Start: 02-15-20 End: 04-19-20 [...] 11-04-2024 ED Prov Note ED PROVIDER NOTE [facility] EM[facility]ENCY [facility] NAME: Lana Rivera AGE: 39 y.o. : 1985 VISIT DATE: 11/04/2024 CSN: [id number] PCP: Aleena London MD Chief Complaint Patient [...] 11-04-2024 Chloride [Moles/Vol] 103 mmol/L Normal 98-108 [facility] Comment on above: Order Comment: Negat jimmie: Dilute urine specimens, as indicated by a low specific gravity (<1.010) may not contain representitive levels of hCG. If is still suspected, a serum test or repeat urine test using a first morning urine specimen should be considered. CO2 [Moles/Vol] 25 mmol/L Normal 21-32 [facility] Comment on above: Order Comment: Negat jimmie: Dilute urine specimens, as indicated by a low specific gravity (<1.010) may not contain representitive levels of hCG. If is still suspected, a serum test or repeat urine test using a first morning urine specimen should be considered. Creatinine [Mass/Vol] 0.67 mg/dL Normal 0.40-1.10 [facility] Comment on above: Order Comment: Negat jimmie: Dilute urine specimens, as indicated by a low specific gravity (<1.010) may not contain representitive levels of hCG. If is still suspected, a serum test or repeat urine test using a first morning urine specimen should be considered. Glucose [Mass/Vol] 129 mg/dL High 65-99 [facility] Comment on above: Order Comment: Negat jimmie: Dilute urine specimens, as indicated by a low specific gravity (<1.010) may not contain representitive levels of hCG. If is still suspected, a serum test or repeat urine test using a first morning urine specimen should be considered. POC GFR 116 mL/min/1.73 m2 Normal >=60 [facility] Comment on above: Order Comment: Negat jimmie: [...] POC IONIZED CALCIUM 4.8 mg/dL Normal 4.5-5.3 [facility] Comment on above: Order Comment: Negat jimmie: Dilute urine specimens, as indicated by a low specific gravity (<1.010) may not contain representitive levels of hCG. If is still suspected, a serum test or repeat urine test using a first morning urine specimen should be considered. Potassium [Moles/Vol] 3.2 mmol/L Low 3.5-5.1 [facility] Comment on above: Order Comment: Negat jimmie: Dilute urine specimens, as indicated by a low specific gravity (<1.010) may not contain representitive levels of hCG. If is still suspected, a serum test or repeat urine test using a first morning urine specimen should be considered. Sodium [Moles/Vol] 134 mmol/L Low 135-145 [facility] Comment on above: Order Comment: Negat jimmie: Dilute urine specimens, as indicated by a low specific gravity (<1.010) may not contain representitive levels of hCG. If is still suspected, a serum test or repeat urine test using a first morning urine specimen should be considered. Urea nitrogen [Mass/Vol] 6 mg/dL Low 8-25 [facility] Comment on above: Order Comment: Negat jimmie: Dilute urine specimens, as indicated by a low specific gravity (<1.010) may not contain representitive levels of hCG. If is still suspected, a serum test or repeat urine test using a first morning urine specimen should be considered. POC CBC AND DIFFERENTIALon 0 - BASOPHILS ABSOLUTE COUNT 0.02 K/mcL Normal 0.00-0.30 [facility] Basophils/100 WBC (Bld) 0.5 % Normal [facility] Eosinophils (d) [#/Vol] 0.22 10*3/uL Normal 0.00-0.50 [facility] Eosinophils/100 WBC (Bld) 5.1 % Normal [facility] Erythrocyte distribution width (RBC) [Ratio] 12.9 % Normal 11.6-14.8 [facility] Hematocrit (Bld) [Volume fraction] 41.5 % Normal 36.0-46.0 [facility] Hemoglobin (Bld) [Mass/Vol] 13.7 g/dL Normal 12.0-16.0 [facility] IG ABSOLUTE 0.01 K/mcL Normal 0.00-0.30 [facility] IG PERCENT 0.20 % Normal [facility] Comment on above: Result Comment: The IG parameter is the percentage of metamyelocytes, myelocytes and promyelocytes. An immature granulocyte count (IG) of 1% or more suggests the possibility of infection, an IG count of 3% is very likely related to an infection. Lymphocytes (Bld) [#/Vol] 1.20 10*3/uL Normal 0.90-4.00 [facility] Lymphocytes/100 WBC (Bld) 28.0 % Normal [facility] MCH (RBC) [Entitic mass] 28.2 pg Normal 26.0-34.0 [facility] MCV (RBC) [Entitic vol] 85.6 fL Normal 80.0-100.0 [facility] MEAN CORPUSCULAR HEMOGLOBIN CONC 33.0 g/dL Normal 31.0-37.0 [facility] Monocytes (Bld) [#/Vol] 0.35 10*3/uL Normal 0.30-0.90 [facility] Monocytes/100 WBC (Bld) 8.2 % Normal [facility] NEUTROPHILS ABSOLUTE COUNT 2.48 K/mcL Normal 1.70-7.00 [facility] Neutrophils/100 WBC (Bld) 58.0 % Normal [facility] Platelet mean volume (Bld) [Entitic vol] 10.5 fL Normal 9.4-12.4 [facility] Platelets (Bld) [#/Vol] 152 10*3/uL Normal 150-400 [facility] RBC (Bld) [#/Vol] 4.85 10*6/uL Normal 4.00-5.20 [facility] WBC (Bld) [#/Vol] 4.28 10*3/uL Low 4.50-11.00 [facility] POC D-DIMER [facility] POC D-DIMER 209 ng/mL DDU Normal <350 [facility] Comment on above: Order Comment: Injur y/Trauma or Illness?:Illness/Other How long have you had these symptoms (acute/chronic)?:Acute Reason for exam?:sudden onset of lower abd and right sided back pain in the night hx of ovarian cyst and endometreosis Type of Exam?:Initial Additional signs and symptoms?:na POC TROPONIN I [facility] 2024 POC TROPONIN I < Normal <0.05 [facility] POC TROPONIN I < Normal <0.05 [facility] XR CHEST PA/APon 06-16-2025 XR CHEST PA/AP [...] is unremarkable. IMPRESSION: No acute cardiopulmonary process. [employer]PT PAL Workstation ID: [id number] Dictated by: JOHANNA MARCH on MonNov 04, 2024 2:36:53 PM EDT Transcribed by: SULAIMAN FREEDMAN on MonNov 04, 2024 2:59:40 PM EDT Finalized by: JOHANNA MARCH on MonNov 04, 2024 9:31:44 PM EDT [facility] Comment on above: Order Comment: Injur y/Trauma or Illness?:Illness/Other How long have you had these symptoms (acute/chronic)?:Acute Reason for exam?:sudden onset of lower abd and right sided back pain in the night hx of ovarian cyst and endometreosis Type of Exam?:Initial Additional signs and symptoms?:na ED Prov Noteon 10-04-2024 ED Prov Note ED PROVIDER NOTE [facility] EM[facility] NAME: Lana Rivera AGE: 39 y.o. : 1985 VISIT DATE: 10/04/2024 CSN: [id number] PCP: Aleena London MD Chief Complaint Patient [...] is warm. (more content not included)... Normal [facility] ED Prov Noteon 08-20-2024 ED Prov Note [...] are negative. PAST HISTORY Past Medical History: @[facility]@ Past Surgical History: has a [...] 5 days . Follow-up: Aleena London MD [address] [facility] [id number] In 3 days Final Impression: 1. Hearing loss due to cerumen impaction, right 2. Acute bronchitis, unspecified organism (Please note that portions of this note were completed with a voice recognition program. Efforts were made to edit the dictations but occasionally words are mis-transcribed.) G (more content not included)... [facility] POC STREP A - MOLECULAR RALS on 08-20-2024 POC STREP A SCREEN Negative Normal Negative [facility] XR CHEST PA/APon 08-20-2024 XR CHEST PA/AP [...] MonAug 20, 2024 12:05:28 PM EDT Normal [facility] Comment on above: Order Comment: Injur y/Trauma [...] 2024 5:05:52 PM EST Finalized by: TOMASZ CAE on MonJun 21, 2024 5:05:52 PM EST Normal [facility] Comment on above: Order Comment: [...] 21, 2024 5:05:42 PM EST Normal [facility] Comment on above: Order Comment: Injur y/Trauma or Illness?:Illness/Other How long have you had these symptoms (acute/chronic)?:Chronic Reason for exam?:PAIN History of cancer?:n Surgeries, chemotherapy, or radiation?:ORIF radius and ulna Type of Exam?:Initial Additional signs and symptoms?:NO ED Prov Noteon 06-16-2024 ED Prov Note [place] ED Physician Note: NAME: Lana Rivera 39 y.o. CSN: [id number] PCP: Aleena London MD ED Course / [...] Resource Strain: High Risk (02/19/2020) Received from [facility] Overall Financial Resource Strain (CARDIA) Difficulty of Paying Living Expenses: Hard Food Insecurity: No Food Insecurity (02/19/2020) Received from [facility] Hunger Vital Sign Worried About Running Out of Food in the Last Year: Never true Ran Out of Food in the Last Year: Never true Transportation Needs: No Transportation Needs (02/19/2020) Received from [facility] PRAPARE - Transportation Lack of Transportation (Medical): No Lack of Transportation (Non-Medical): No Physical Activity: Insufficiently Active (01/27/2020) Received from [facility] Exercise Vital Sign Days of Exercise per Week: 2 days Minutes of Exercise per Session: 20 min Stress: No Stress Concern Present (01/27/2020) Received from [facility] [place] [facility] [employer] - Occupational Stress Questionnaire Feeling of Stress : Only a little Social Connections: Moderately Isolated (01/27/2020) Received from [facility] Social Connection and Isolation Panel [NHANES] Frequency of Communication with Friends and Family: More than three times a week Frequency of Social Gatherings with Friends and Family: Twice a week Attends Adventism Services: Never Active Member of Clubs or Organizations: No Attends Club or Organization Meetings: Never Marital Status: Housing Stability: Low Risk (01/27/2020) Received from [facility] Housing Stability Vital Sign Unable to Pay [...] Take 2 pills (more content not included)... [facility] ED Prov Noteon 06-13-2024 ED Prov Note ED PROVIDER NOTE [facility] NAME: Lana Rivera AGE: 39 y.o. : 1985 VISIT DATE: 06/13/2024 CSN: [id number] PCP: Aleena London MD Chief Complaint Patient [...] Resource Strain: High Risk (02/19/2020) Received from [facility] Overall Financial Resource Strain (CARDIA) Difficulty of Paying Living Expenses: Hard Food Insecurity: No Food Insecurity (02/19/2020) Received from [facility] Hunger Vital Sign Worried About Running Out of Food in the Last Year: Never true Ran Out of Food in the Last Year: Never true Transportation Needs: No Transportation Needs (02/19/2020) Received from [facility] PRAPARE - Transportation Lack of Transportation (Medical): No Lack of Transportation (Non-Medical): No Physical Activity: Insufficiently Active (01/27/2020) Received from [facility] Exercise Vital Sign Days of Exercise per Week: 2 days Minutes of Exercise per Session: 20 min Stress: No Stress Concern Present (01/27/2020) Received from [facility] [place] [facility] - Occupational Stress Questionnaire Feeling of Stress : Only a little Social Connections: Moderately Isolated (01/27/2020) Received from [facility] Social Connection and Isolation Panel [NHANES] Frequency of Communication with Friends and Family: More than three times a week Frequency of Social Gatherings with Friends and Family: Twice a week Attends Adventism Services: Never Active Member of Clubs or Organizations: No Attends Club or Organization Meetings: Never Marital Status: Housing Stability: Low Risk (01/27/2020) Received from [facility] Housing Stability Vital Sign Unable to Pay [...] Allergies Allergen Re (more content not included)... [facility] XR SHOULDER LEFT 2+ VIEWS (S [...] appear unremarkable. IMPRESSION: No acute osseous abnormality. [employer] Workstation ID: [id number] Dictated by: RAUL WESTON on MonJun 13, 2024 3:35:23 PM EST Transcribed by: OLY TINAJERO on MonJun 13, 2024 3:40:55 PM EST Finalized by: RAUL WESTON on MonJun 13, 2024 3:52:44 PM EST Normal [facility] Comment on above: Order Comment: Injur y/Trauma or Illness?:Illness/Other How long have you had these symptoms (acute/chronic)?:Acute Reason for exam?:lower GI bleed with abd pain Type of Exam?:Initial Additional signs and symptoms?:na ED Prov Noteon 06-05-2024 ED Prov Note ED PROVIDER NOTE [facility] NAME: Lana Rivera AGE: 39 y.o. : 1985 VISIT DATE: 06/05/2024 CSN: [id number] PCP: Aleena London MD Chief Complaint Patient [...] Resource Strain: High Risk (02/19/2020) Received from [facility] Overall Financial Resource Strain (CARDIA) Difficulty of Paying Living Expenses: Hard Food Insecurity: No Food Insecurity (02/19/2020) Received from [facility] Hunger Vital Sign Worried About Running Out of Food in the Last Year: Never true Ran Out of Food in the Last Year: Never true Transportation Needs: No Transportation Needs (02/19/2020) Received from [facility] PRAPARE - Transportation Lack of Transportation (Medical): No Lack of Transportation (Non-Medical): No Physical Activity: Insufficiently Active (01/27/2020) Received from [facility] Exercise Vital Sign Days of Exercise per Week: 2 days Minutes of Exercise per Session: 20 min Stress: No Stress Concern Present (01/27/2020) Received from [facility] [place] [facility] [employer] [facility] - Occupational Stress Questionnaire Feeling of Stress : Only a little Social Connections: Moderately Isolated (01/27/2020) Received from [facility] Social Connection and Isolation Panel [NHANES] Frequency of Communication with Friends and Family: More than three times a week Frequency of Social Gatherings with Friends and Family: Twice a week Attends Adventism Services: Never Active Member of Clubs or Organizations: No Attends Club or Organization Meetings: Never Marital Status: Housing Stability: Low Risk (01/27/2020) Received from [facility], [facility] Housing Stability Vital Sign Unable to [...] times a d (more content not included)... [facility] ED Prov Noteon 05-28-2024 ED Prov Note ED PROVIDER NOTE [facility] NAME: Lana Rivera AGE: 39 y.o. : 1985 VISIT DATE: 05/28/2024 CSN: [id number] PCP: Aleena London MD Chief Complaint Patient [...] Resource Strain: High Risk (02/19/2020) Received from [facility] Overall Financial Resource Strain (CARDIA) Difficulty of Paying Living Expenses: Hard Food Insecurity: No Food Insecurity (02/19/2020) Received from [facility] Hunger Vital Sign Worried About Running Out of Food in the Last Year: Never true Ran Out of Food in the Last Year: Never true Transportation Needs: No Transportation Needs (02/19/2020) Received from [facility] PRAPARE - Transportation Lack of Transportation (Medical): No Lack of Transportation (Non-Medical): No Physical Activity: Insufficiently Active (01/27/2020) Received from [facility] Exercise Vital Sign Days of Exercise per Week: 2 days Minutes of Exercise per Session: 20 min Stress: No Stress Concern Present (01/27/2020) Received from [facility] [place] [facility] [employer] - Occupational Stress Questionnaire Feeling of Stress : Only a little Social Connections: Moderately Isolated (01/27/2020) Received from [facility] Social Connection and Isolation Panel [NHANES] Frequency of Communication with Friends and Family: More than three times a week Frequency of Social Gatherings with Friends and Family: Twice a week Attends Adventism Services: Never Active Member of Clubs or Organizations: No Attends Club or Organization Meetings: Never Marital Status: Housing Stability: Low Risk (01/27/2020) Received from [facility] Housing Stability Vital Sign Unable to Pay [...] Allergen Reactions Hydrocodo (more content not included)... [facility] ED Prov Noteon 05-09-2024 ED Prov [...] are negative. PAST HISTORY Past Medical History: @[facility]@ Past Surgical History: has a [...] Normal Affect (more content not included)... Normal [facility] ED Prov Noteon 04-15-2024 ED Prov Note ED PROVIDER NOTE [facility] NAME: Lana Rivera AGE: 38 y.o. : 1985 VISIT DATE: 04/15/2024 CSN: [id number] PCP: Aleena London MD Chief Complaint Patient [...] Resource Strain: High Risk (02/19/2020) Received from [facility] Overall Financial Resource Strain (CARDIA) Difficulty of Paying Living Expenses: Hard Food Insecurity: No Food Insecurity (02/19/2020) Received from [facility] Hunger Vital Sign Worried About Running Out of Food in the Last Year: Never true Ran Out of Food in the Last Year: Never true Transportation Needs: No Transportation Needs (02/19/2020) Received from [facility] PRAPARE - Transportation Lack of Transportation (Medical): No Lack of Transportation (Non-Medical): No Physical Activity: Insufficiently Active (01/27/2020) Received from [facility] Exercise Vital Sign Days of Exercise per Week: 2 days Minutes of Exercise per Session: 20 min Stress: No Stress Concern Present (01/27/2020) Received from [facility] [place] [facility] [employer] [facility] - Occupational Stress Questionnaire Feeling of Stress : Only a little Social Connections: Moderately Isolated (01/27/2020) Received from [facility] Social Connection and Isolation Panel [NHANES] Frequency of Communication with Friends and Family: More than three times a week Frequency of Social Gatherings with Friends and Family: Twice a week Attends Adventism Services: Never Active Member of Clubs or Organizations: No Attends Club or Organization Meetings: Never Marital Status: Housing Stability: Low Risk (01/27/2020) Received from [facility] Housing Stability Vital Sign Unable to Pay [...] Other ( (more content not included)... Normal [facility] CT ABDOMEN PELVIS WITH IV CO NTRAST [...] left salpingo-oophorectomy. Ultrasound follow-up could be considered. [employer] Workstation ID: [id number] Dictated by: JOHANNA MARCH on MonApr 01, 2024 11:57:43 AM EST Transcribed by: CATINA GENTILE on MonApr 01, 2024 12:07:32 PM EST Finalized by: JOHANNA MARCH on MonApr 01, 2024 9:03:59 PM EST Normal [facility] Comment on above: Order Comment: Injur y/Trauma or Illness?:Illness/Other How long have you had these symptoms (acute/chronic)?:Acute Reason for exam?:sudden onset of lower abd and right sided back pain in the night hx of ovarian cyst and endometreosis Type of Exam?:Initial Additional signs and symptoms?:na ED Prov Noteon 04-01-2024 ED Prov Note ED PROVIDER NOTE [facility] NAME: Lana Rivera AGE: 38 y.o. : 1985 VISIT DATE: 04/01/2024 CSN: [id number] PCP: Aleena London MD Chief Complaint Patient [...] Resource Strain: High Risk (02/19/2020) Received from [facility] Overall Financial Resource Strain (CARDIA) Difficulty of Paying Living Expenses: Hard Food Insecurity: No Food Insecurity (02/19/2020) Received from [facility] Hunger Vital Sign Worried About Running Out of Food in the Last Year: Never true Ran Out of Food in the Last Year: Never true Transportation Needs: No Transportation Needs (02/19/2020) Received from [facility] PRAPARE - Transportation Lack of Transportation (Medical): No Lack of Transportation (Non-Medical): No Physical Activity: Insufficiently Active (01/27/2020) Received from [facility] Exercise Vital Sign Days of Exercise per Week: 2 days Minutes of Exercise per Session: 20 min Stress: No Stress Concern Present (01/27/2020) Received from [facility] [place] [facility] [employer] [facility] - Occupational Stress Questionnaire Feeling of Stress : Only a little Social Connections: Moderately Isolated (01/27/2020) Received from [facility] Social Connection and Isolation Panel [NHANES] Frequency of Communication with Friends and Family: More than three times a week Frequency of Social Gatherings with Friends and Family: Twice a week Attends Adventism Services: Never Active Member of Clubs or Organizations: No Attends Club or Organization Meetings: Never Marital Status: Housing Stability: Low Risk (01/27/2020) Received from [facility], [facility] Housing Stability Vital Sign Unable to [...] Reactions Hydrocod (more content not included)... Normal [facility] POC BASIC METABOLIC PANEL - [facility] 04-01-2024 Chloride [Moles/Vol] 105 mmol/L Normal 98-108 [facility] Comment on above: Order Comment: Injur y/Trauma or Illness?:Illness/Other How long have you had these symptoms (acute/chronic)?:Acute Reason for exam?:sudden onset of lower abd and right sided back pain in the night hx of ovarian cyst and endometreosis Type of Exam?:Initial Additional signs and symptoms?:na CO2 [Moles/Vol] 25 mmol/L Normal 21-32 [facility] Comment on above: Order Comment: Injur y/Trauma or Illness?:Illness/Other How long have you had these symptoms (acute/chronic)?:Acute Reason for exam?:sudden onset of lower abd and right sided back pain in the night hx of ovarian cyst and endometreosis Type of Exam?:Initial Additional signs and symptoms?:na Creatinine [Mass/Vol] 0.60 mg/dL Normal 0.40-1.10 [facility] Comment on above: Order Comment: Injur y/Trauma or Illness?:Illness/Other How long have you had these symptoms (acute/chronic)?:Acute Reason for exam?:sudden onset of lower abd and right sided back pain in the night hx of ovarian cyst and endometreosis Type of Exam?:Initial Additional signs and symptoms?:na Glucose [Mass/Vol] 139 mg/dL High 65-99 [facility] Comment on above: Order Comment: Injur y/Trauma or Illness?:Illness/Other How long have you had these symptoms (acute/chronic)?:Acute Reason for exam?:sudden onset of lower abd and right sided back pain in the night hx of ovarian cyst and endometreosis Type of Exam?:Initial Additional signs and symptoms?:na POC GFR 119 mL/min/1.73 m2 Normal >=60 [facility] Comment on above: Order Comment: Injur y/Trauma [...] POC IONIZED CALCIUM 4.7 mg/dL Normal 4.5-5.3 [facility] Comment on above: Order Comment: Injur y/Trauma or Illness?:Illness/Other How long have you had these symptoms (acute/chronic)?:Acute Reason for exam?:sudden onset of lower abd and right sided back pain in the night hx of ovarian cyst and endometreosis Type of Exam?:Initial Additional signs and symptoms?:na Potassium [Moles/Vol] 4.0 mmol/L Normal 3.5-5.1 [facility] Comment on above: Order Comment: Injur y/Trauma or Illness?:Illness/Other How long have you had these symptoms (acute/chronic)?:Acute Reason for exam?:sudden onset of lower abd and right sided back pain in the night hx of ovarian cyst and endometreosis Type of Exam?:Initial Additional signs and symptoms?:na Sodium [Moles/Vol] 141 mmol/L Normal 135-145 [facility] Comment on above: Order Comment: Injur y/Trauma or Illness?:Illness/Other How long have you had these symptoms (acute/chronic)?:Acute Reason for exam?:sudden onset of lower abd and right sided back pain in the night hx of ovarian cyst and endometreosis Type of Exam?:Initial Additional signs and symptoms?:na Urea nitrogen [Mass/Vol] 9 mg/dL Normal 8-25 [facility] Comment on above: Order Comment: Injur y/Trauma or Illness?:Illness/Other How long have you had these symptoms (acute/chronic)?:Acute Reason for exam?:sudden onset of lower abd and right sided back pain in the night hx of ovarian cyst and endometreosis Type of Exam?:Initial Additional signs and symptoms?:na POC CBC AND DIFFERENTIALon 1 06-01-2023 BASOPHILS ABSOLUTE COUNT 0.02 K/mcL Normal 0.00-0.30 [facility] Basophils/100 WBC (Bld) 0.4 % Normal [facility] Eosinophils (Bld) [#/Vol] 0.26 10*3/uL Normal 0.00-0.50 [facility] Eosinophils/100 WBC (Bld) 4.7 % Normal [facility] Erythrocyte distribution width (RBC) [Ratio] 12.6 % Normal 11.6-14.8 [facility] Hematocrit (Bld) [Volume fraction] 44.1 % Normal 36.0-46.0 [facility] Hemoglobin (Bld) [Mass/Vol] 14.8 g/dL Normal 12.0-16.0 [facility] IG ABSOLUTE 0.01 K/mcL Normal 0.00-0.30 [facility] IG PERCENT 0.20 % Normal [facility] Comment on above: Result Comment: The IG parameter is the percentage of metamyelocytes, myelocytes and promyelocytes. An immature granulocyte count (IG) of 1% or more suggests the possibility of infection, an IG count of 3% is very likely related to an infection. Lymphocytes (Bld) [#/Vol] 1.46 10*3/uL Normal 0.90-4.00 [facility] Lymphocytes/100 WBC (Bld) 26.3 % Normal [facility] MCH (RBC) [Entitic mass] 28.9 pg Normal 26.0-34.0 [facility] MCV (RBC) [Entitic vol] 86.1 fL Normal 80.0-100.0 [facility] MEAN CORPUSCULAR HEMOGLOBIN CONC 33.6 g/dL Normal 31.0-37.0 [facility] Monocytes (Bld) [#/Vol] 0.42 10*3/uL Normal 0.30-0.90 [facility] Monocytes/100 WBC (Bld) 7.6 % Normal [facility] NEUTROPHILS ABSOLUTE COUNT 3.39 K/mcL Normal 1.70-7.00 [facility] Neutrophils/100 WBC (Bld) 60.8 % Normal [facility] Platelet mean volume (Bld) [Entitic vol] 11.0 fL Normal 9.4-12.4 [facility] Platelets (Bld) [#/Vol] 173 10*3/uL Normal 150-400 [facility] RBC (Bld) [#/Vol] 5.12 10*6/uL Normal 4.00-5.20 [facility] WBC (Bld) [#/Vol] 5.56 10*3/uL Normal 4.50-11.00 [facility] POC LIVER PANEL PLUS [facility] 04-01-2024 Albumin [Mass/Vol] 4.0 g/dL Normal 3.2-5.2 [facility] ALP [Catalytic activity/Vol] 57 U/L Normal 40-140 [facility] ALT [Catalytic activity/Vol] 29 U/L Normal 0-40 [facility] Amylase [Catalytic activity/Vol] 24 U/L Low 25-115 [facility] Amylase [Catalytic activity/Vol] 17 U/L Normal 7-33 [facility] AST [Catalytic activity/Vol] 28 U/L Normal 0-45 [facility] Bilirubin [Mass/Vol] 0.6 mg/dL Normal 0.0-1.3 [facility] Protein [Mass/Vol] 7.2 g/dL Normal 6.0-8.0 [facility] POC , URINE - [facility] 04-01-2024 Beta HCG ( test) Ql (U) Negative Normal Negative [facility] Comment on above: Order Comment: Injur y/Trauma or Illness?:Illness/Other How long have you had these symptoms (acute/chronic)?:Acute Reason for exam?:sudden onset of lower abd and right sided back pain in the night hx of ovarian cyst and endometreosis Type of Exam?:Initial Additional signs and symptoms?:na POC URINALYSIS DIPSTICK,AUTO - [facility] 04-01-2024 POC BILIRUBIN, URINE Negative Normal Negative [facility] POC BLOOD, URINE Negative Normal Negative [facility] POC GLUCOSE, URINE Negative Normal Negative [facility] POC KETONES, URINE Negative Normal Negative [facility] POC LEUKOCYTE ESTERASE, URINE Negative Normal Negative [facility] POC NITRITE, URINE Negative Normal Negative [facility] POC PH, URINE 6.5 Normal 5.0-7.0 [facility] POC PROTEIN, URINE Negative Normal Negative [facility] POC SPECIFIC GRAVITY 1.025 Normal 1.005-1.025 [facility] POC UROBILINOGEN 0.2 mg/dL Normal < 2.0 [facility] ED Prov Noteon 03-17-2024 ED Prov Note ED PROVIDER NOTE [facility] NAME: Lana Rivera AGE: 38 y.o. : 1985 VISIT DATE: 03/17/2024 CSN: [id number] PCP: Aleena London MD Chief Complaint Patient [...] Resource Strain: High Risk (02/19/2020) Received from [facility] Overall Financial Resource Strain (CARDIA) Difficulty of Paying Living Expenses: Hard Food Insecurity: No Food Insecurity (02/19/2020) Received from [facility] Hunger Vital Sign Worried About Running Out of Food in the Last Year: Never true Ran Out of Food in the Last Year: Never true Transportation Needs: No Transportation Needs (02/19/2020) Received from [facility] PRAPARE - Transportation Lack of Transportation (Medical): No Lack of Transportation (Non-Medical): No Physical Activity: Insufficiently Active (01/27/2020) Received from [facility] Exercise Vital Sign Days of Exercise per Week: 2 days Minutes of Exercise per Session: 20 min Stress: No Stress Concern Present (01/27/2020) Received from [facility] [place] [facility] [employer] - Occupational Stress Questionnaire Feeling of Stress : Only a little Social Connections: Moderately Isolated (01/27/2020) Received from [facility] Social Connection and Isolation Panel [NHANES] Frequency of Communication with Friends and Family: More than three times a week Frequency of Social Gatherings with Friends and Family: Twice a week Attends Adventism Services: Never Active Member of Clubs or Organizations: No Attends Club or Organization Meetings: Never Marital Status: Housing Stability: Low Risk (01/27/2020) Received from [facility] Housing Stability Vital Sign Unable to Pay [...] nausea . prochlorpe (more content not included)... [facility] XR CERVICAL SPINE COMPLETE 4 -5 [...] well. 4. Upper lung zones are clear. [facility] Workstation ID: [id number] Dictated by: COLE PALM on [place] Mar 17, 2024 9:20:05 AM EDT Transcribed by: FLO MOSS on [place] Mar 17, 2024 9:48:26 AM EDT Finalized by: COLE PALM on [place] Mar 17, 2024 5:13:59 PM EDT [facility] Comment on above: Order Comment: Injur [...] on MonMar 11, 2024 12:13:13 PM EDT [facility] Comment on above: Order Comment: Injur y/Trauma or Illness?:Illness/Other How long have you had these symptoms (acute/chronic)?:Acute Reason for exam?:lower GI bleed with abd pain Type of Exam?:Initial Additional signs and symptoms?:na ED Prov Noteon 03-11-2024 ED Prov Note ED PROVIDER NOTE [facility] NAME: Lana Rivera AGE: 38 y.o. : 1985 VISIT DATE: 03/11/2024 CSN: [id number] PCP: Aleena London MD Chief Complaint Patient [...] Resource Strain: High Risk (02/19/2020) Received from [facility] Overall Financial Resource Strain (CARDIA) Difficulty of Paying Living Expenses: Hard Food Insecurity: No Food Insecurity (02/19/2020) [facility] [place] [facility] Vital Sign Worried About Running Out of Food in the Last Year: Never true Ran Out of Food in the Last Year: Never true Transportation Needs: No Transportation Needs (02/19/2020) Received from [facility] [place] PRAPARE - Transportation Lack of Transportation (Medical): No Lack of Transportation (Non-Medical): No Physical Activity: Insufficiently Active (01/27/2020) Received from [facility] [place] Exercise Vital Sign Days of Exercise per Week: 2 days Minutes of Exercise per Session: 20 min Stress: No Stress Concern Present (01/27/2020) Received from [facility] [place] [facility] - Occupational Stress Questionnaire Feeling of Stress : Only a little Social Connections: Moderately Isolated (01/27/2020) Received from [facility] [place] Social Connection and Isolation Panel [NHANES] Frequency of Communication with Friends and Family: More than three times a week Frequency of Social Gatherings with Friends and Family: Twice a week Attends Adventism Services: Never Active Member of Clubs or Organizations: No Attends Club or Organization Meetings: Never Marital Status: Housing Stability: Low Risk (01/27/2020) Received from [facility] [place] Housing Stability Vital Sign Unable to Pay [...] TAKE WI (more content not included)... Normal [facility] POC BASIC METABOLIC PANEL - Seda 03-11-2024 Chloride [Moles/Vol] 104 mmol/L Normal 98-108 [facility] Comment on above: Order Comment: Injur y/Trauma or Illness?:Illness/Other How long have you had these symptoms (acute/chronic)?:Acute Reason for exam?:sudden onset of lower abd and right sided back pain in the night hx of ovarian cyst and endometreosis Type of Exam?:Initial Additional signs and symptoms?:na CO2 [Moles/Vol] 26 mmol/L Normal 21-32 [facility] Comment on above: Order Comment: Injur y/Trauma or Illness?:Illness/Other How long have you had these symptoms (acute/chronic)?:Acute Reason for exam?:sudden onset of lower abd and right sided back pain in the night hx of ovarian cyst and endometreosis Type of Exam?:Initial Additional signs and symptoms?:na Creatinine [Mass/Vol] 0.64 mg/dL Normal 0.40-1.10 [facility] Comment on above: Order Comment: Injur y/Trauma or Illness?:Illness/Other How long have you had these symptoms (acute/chronic)?:Acute Reason for exam?:sudden onset of lower abd and right sided back pain in the night hx of ovarian cyst and endometreosis Type of Exam?:Initial Additional signs and symptoms?:na Glucose [Mass/Vol] 108 mg/dL High 65-99 [facility] Comment on above: Order Comment: Injur y/Trauma or Illness?:Illness/Other How long have you had these symptoms (acute/chronic)?:Acute Reason for exam?:sudden onset of lower abd and right sided back pain in the night hx of ovarian cyst and endometreosis Type of Exam?:Initial Additional signs and symptoms?:na POC GFR 118 mL/min/1.73 m2 Normal >=60 [facility] Comment on above: Order Comment: Injur y/Trauma [...] POC IONIZED CALCIUM 4.9 mg/dL Normal 4.5-5.3 [facility] Comment on above: Order Comment: Injur y/Trauma or Illness?:Illness/Other How long have you had these symptoms (acute/chronic)?:Acute Reason for exam?:sudden onset of lower abd and right sided back pain in the night hx of ovarian cyst and endometreosis Type of Exam?:Initial Additional signs and symptoms?:na Potassium [Moles/Vol] 3.8 mmol/L Normal 3.5-5.1 [facility] Comment on above: Order Comment: Injur y/Trauma or Illness?:Illness/Other How long have you had these symptoms (acute/chronic)?:Acute Reason for exam?:sudden onset of lower abd and right sided back pain in the night hx of ovarian cyst and endometreosis Type of Exam?:Initial Additional signs and symptoms?:na Sodium [Moles/Vol] 142 mmol/L Normal 135-145 [facility] Comment on above: Order Comment: Injur y/Trauma or Illness?:Illness/Other How long have you had these symptoms (acute/chronic)?:Acute Reason for exam?:sudden onset of lower abd and right sided back pain in the night hx of ovarian cyst and endometreosis Type of Exam?:Initial Additional signs and symptoms?:na Urea nitrogen [Mass/Vol] 8 mg/dL Normal 8-25 [facility] Comment on above: Order Comment: Injur y/Trauma or Illness?:Illness/Other How long have you had these symptoms (acute/chronic)?:Acute Reason for exam?:sudden onset of lower abd and right sided back pain in the night hx of ovarian cyst and endometreosis Type of Exam?:Initial Additional signs and symptoms?:na POC CBC AND DIFFERENTIALon BASOPHILS ABSOLUTE COUNT 0.02 K/mcL Normal 0.00-0.30 [facility] Basophils/100 WBC (Bld) 0.4 % Normal [facility] Eosinophils (Bld) [#/Vol] 0.22 10*3/uL Normal 0.00-0.50 [facility] Eosinophils/100 WBC (Bld) 4.8 % Normal [facility] Erythrocyte distribution width (RBC) [Ratio] 12.8 % Normal 11.6-14.8 [facility] Hematocrit (Bld) [Volume fraction] 42.6 % Normal 36.0-46.0 [facility] Hemoglobin (Bld) [Mass/Vol] 14.2 g/dL Normal 12.0-16.0 [facility] IG ABSOLUTE 0.01 K/mcL Normal 0.00-0.30 [facility] IG PERCENT 0.20 % Normal [facility] Comment on above: Result Comment: The IG parameter is the percentage of metamyelocytes, myelocytes and promyelocytes. An immature granulocyte count (IG) of 1% or more suggests the possibility of infection, an IG count of 3% is very likely related to an infection. Lymphocytes (Bld) [#/Vol] 1.47 10*3/uL Normal 0.90-4.00 [facility] Lymphocytes/100 WBC (Bld) 32.0 % Normal [facility] MCH (RBC) [Entitic mass] 28.7 pg Normal 26.0-34.0 [facility] MCV (RBC) [Entitic vol] 86.1 fL Normal 80.0-100.0 [facility] MEAN CORPUSCULAR HEMOGLOBIN CONC 33.3 g/dL Normal 31.0-37.0 [facility] Monocytes (Bld) [#/Vol] 0.43 10*3/uL Normal 0.30-0.90 [facility] Monocytes/100 WBC (Bld) 9.4 % Normal [facility] NEUTROPHILS ABSOLUTE COUNT 2.44 K/mcL Normal 1.70-7.00 [facility] Neutrophils/100 WBC (Bld) 53.2 % Normal [facility] Platelet mean volume (Bld) [Entitic vol] 10.8 fL Normal 9.4-12.4 [facility] Platelets (Bld) [#/Vol] 149 10*3/uL Low 150-400 [facility] RBC (Bld) [#/Vol] 4.95 10*6/uL Normal 4.00-5.20 [facility] WBC (Bld) [#/Vol] 4.59 10*3/uL Normal 4.50-11.00 [facility] POC PT-INR - [facility] 03-11-20 POC INR (SIG ELITE) 1.4 High 0.8-1.1 [facility] ED Prov Noteon 03-07-2024 ED Prov Note HPI: 03/07/2024, Time: @NOWBOB@ [facility] Miguel is a 38 y.o. [...] are negative. PAST HISTORY Past Medical History: @[facility]@ Past Surgical History: has a [...] 25 - 40 mm Hg Base Excess, Afdi -0.6 -2.0 - 2.0 HCO3, Fadi 24.9 [...] left wrist (more content not included)... Normal [facility] ED Prov Noteon 03-04-2024 ED Prov Note [place] ED Physician Note: NAME: Lana Rivera 38 y.o. CSN: [id number] PCP: Aleena London MD ED Course / [...] Resource Strain: High Risk (02/19/2020) Received from [facility] [place] Overall Financial Resource Strain (CARDIA) Difficulty of Paying Living Expenses: Hard Food Insecurity: No Food Insecurity (02/19/2020) Received from [facility] [place] Hunger Vital Sign Worried About Running Out of Food in the Last Year: Never true Ran Out of Food in the Last Year: Never true Transportation Needs: No Transportation Needs (02/19/2020) Received from [facility] [place] PRAPARE - Transportation Lack of Transportation (Medical): No Lack of Transportation (Non-Medical): No Physical Activity: Insufficiently Active (01/27/2020) Received from [facility] [place] Exercise Vital Sign Days of Exercise per Week: 2 days Minutes of Exercise per Session: 20 min Stress: No Stress Concern Present (01/27/2020) Received from [facility] [place] [facility] - Occupational Stress Questionnaire Feeling of Stress : Only a little Social Connections: Moderately Isolated (01/27/2020) Received from [facility] [place] Social Connection and Isolation Panel [NHANES] Frequency of Communication with Friends and Family: More than three times a week Frequency of Social Gatherings with Friends and Family: Twice a week Attends Adventism Services: Never Active Member of Clubs or Organizations: No Attends Club or Organization Meetings: Never Marital Status: Housing Stability: Low Risk (01/27/2020) Received from [facility] [place] Housing Stability Vital Sign Unable to Pay [...] a day as (more content not included)... [facility] XR FOREARM LEFT 2 VIEWSon XR [...] ulnar shaft fractures with intact fixation hardware. [employer] Workstation ID: [id number] Dictated by: JOHANNA MARCH on MonMar 04, 2024 1:11:34 PM EDT Transcribed by: FLO MOSS on MonMar 04, 2024 1:13:46 PM EDT Finalized by: JOHANNA MARCH on MonMar 04, 2024 10:23:51 PM EDT [facility] Comment on above: Order Comment: Injur [...] normal limits. IMPRESSION: No acute osseous abnormality. [employer] Workstation ID: [id number] Dictated by: JOHANNA MARCH on MonMar 04, 2024 1:16:35 PM EDT Transcribed by: FLO MOSS on MonMar 04, 2024 1:21:46 PM EDT Finalized by: JOHANNA MARCH on MonMar 04, 2024 10:23:57 PM EDT [facility] Comment on above: Order Comment: Injur [...] normal limits. IMPRESSION: No acute osseous abnormality. [facility] Workstation ID: [id number] Dictated by: JOHANNA MARCH on MonMar 04, 2024 1:13:20 PM EDT Transcribed by: FLO MOSS on MonMar 04, 2024 1:17:08 PM EDT Finalized by: JOHANNA MARCH on MonMar 04, 2024 10:27:17 PM EDT [facility] Comment on above: Order Comment: Injur y/Trauma or Illness?:Illness/Other How long have you had these symptoms (acute/chronic)?:Acute Reason for exam?:sudden onset of lower abd and right sided back pain in the night hx of ovarian cyst and endometreosis Type of Exam?:Initial Additional signs and symptoms?:na ED Prov Noteon 02-23-2024 ED Prov Note [facility] EMERGENCY DEPARTMENT ATTENDING NOTE: NAME: Lana Rivera CSN: [id number] 38 y.o. PCP: Aleena London MD History: [...] of Percocet until she may follow-up with [facility] [employer]. After reviewing the items above, I did [...] Vaping Use (more content not included)... Normal [facility] CT ABDOMEN PELVIS WITH IV CO NTRAST [...] on MonFeb 20, 2024 11:00:04 AM EDT [facility] Comment on above: Order Comment: Injur y/Trauma or Illness?:Illness/Other How long have you had these symptoms (acute/chronic)?:Acute Reason for exam?:lower GI bleed with abd pain Type of Exam?:Initial Additional signs and symptoms?:na ED Prov Noteon 02-20-2024 ED Prov Note ED PROVIDER NOTE [facility] EMERGENCY [facility] NAME: Lana Rivera AGE: 38 y.o. : 1985 VISIT DATE: 02/20/2024 CSN: [id number] PCP: Aleena London MD Chief Complaint Patient [...] Resource Strain: High Risk (02/19/2020) Received from [facility] [place] Overall Financial Resource Strain (CARDIA) Difficulty of Paying Living Expenses: Hard Food Insecurity: No Food Insecurity (02/19/2020) Received from [facility] [place] Hunger Vital Sign Worried About Running Out of Food in the Last Year: Never true Ran Out of Food in the Last Year: Never true Transportation Needs: No Transportation Needs (02/19/2020) Received from [facility] [place] PRAPARE - Transportation Lack of Transportation (Medical): No Lack of Transportation (Non-Medical): No Physical Activity: Insufficiently Active (01/27/2020) Received from [facility] [place] Exercise Vital Sign Days of Exercise per Week: 2 days Minutes of Exercise per Session: 20 min Stress: No Stress Concern Present (01/27/2020) Received from [facility] [place] [facility] - Occupational Stress Questionnaire Feeling of Stress : Only a little Social Connections: Moderately Isolated (01/27/2020) Received from [facility] [place] Social Connection and Isolation Panel [NHANES] Frequency of Communication with Friends and Family: More than three times a week Frequency of Social Gatherings with Friends and Family: Twice a week Attends Adventism Services: Never Active Member of Clubs or Organizations: No Attends Club or Organization Meetings: Never Marital Status: Housing Stability: Low Risk (01/27/2020) Received from [facility] Housing Stability Vital Sign Unable to [...] systems revie (more content not included)... Normal [facility] POC CBC AND DIFFERENTIALon 1 BASOPHILS ABSOLUTE COUNT 0.03 K/mcL Normal 0.00-0.30 [facility] Basophils/100 WBC (Bld) 0.7 % Normal [facility] Eosinophils (Bld) [#/Vol] 0.17 10*3/uL Normal 0.00-0.50 [facility] Eosinophils/100 WBC (Bld) 3.9 % Normal [facility] Erythrocyte distribution width (RBC) [Ratio] 13.2 % Normal 11.6-14.8 [facility] Hematocrit (Bld) [Volume fraction] 42.1 % Normal 36.0-46.0 [facility] Hemoglobin (Bld) [Mass/Vol] 13.9 g/dL Normal 12.0-16.0 [facility] IG ABSOLUTE 0.02 K/mcL Normal 0.00-0.30 [facility] IG PERCENT 0.50 % Normal [facility] Comment on above: Result Comment: The IG parameter is the percentage of metamyelocytes, myelocytes and promyelocytes. An immature granulocyte count (IG) of 1% or more suggests the possibility of infection, an IG count of 3% is very likely related to an infection. Lymphocytes (Bld) [#/Vol] 1.20 10*3/uL Normal 0.90-4.00 [facility] Lymphocytes/100 WBC (Bld) 27.8 % Normal [facility] MCH (RBC) [Entitic mass] 28.6 pg Normal 26.0-34.0 [facility] MCV (RBC) [Entitic vol] 86.6 fL Normal 80.0-100.0 [facility] MEAN CORPUSCULAR HEMOGLOBIN CONC 33.0 g/dL Normal 31.0-37.0 [facility] Monocytes (Bld) [#/Vol] 0.39 10*3/uL Normal 0.30-0.90 [facility] Monocytes/100 WBC (Bld) 9.0 % Normal [facility] NEUTROPHILS ABSOLUTE COUNT 2.51 K/mcL Normal 1.70-7.00 [facility] Neutrophils/100 WBC (Bld) 58.1 % Normal [facility] Platelet mean volume (Bld) [Entitic vol] 11.0 fL Normal 9.4-12.4 [facility] Platelets (Bld) [#/Vol] 161 10*3/uL Normal 150-400 [facility] RBC (Bld) [#/Vol] 4.86 10*6/uL Normal 4.00-5.20 [facility] WBC (Bld) [#/Vol] 4.32 10*3/uL Low 4.50-11.00 [facility] POC LIVER PANEL PLUS [facility] 02-20-2024 Albumin [Mass/Vol] 4.0 g/dL Normal 3.2-5.2 [facility] ALP [Catalytic activity/Vol] 52 U/L Normal 40-140 [facility] ALT [Catalytic activity/Vol] 29 U/L Normal 0-40 [facility] Amylase [Catalytic activity/Vol] 26 U/L Normal 25-115 [facility] Amylase [Catalytic activity/Vol] 16 U/L Normal 7-33 [facility] AST [Catalytic activity/Vol] 25 U/L Normal 0-45 [facility] Bilirubin [Mass/Vol] 0.7 mg/dL Normal 0.0-1.3 [facility] Protein [Mass/Vol] 6.8 g/dL Normal 6.0-8.0 [facility] POC , URINE - [facility] n 02-20-2024 Beta HCG ( test) Ql (U) Negative Normal Negative [facility] Comment on above: Order Comment: Negat jimmie: Dilute urine specimens, as indicated by a low specific gravity (<1.010) may not contain representitive levels of hCG. If is still suspected, a serum test or repeat urine test using a first morning urine specimen should be considered. POC PT-INR - [facility] 02-20-20 24 POC INR (SIG ELITE) 1.7 High 0.8-1.1 [facility] POC URINALYSIS DIPSTICK,AUTO - [facility] 02-20-2024 POC BILIRUBIN, URINE Negative Normal Negative [facility] POC BLOOD, URINE Negative Normal Negative [facility] POC GLUCOSE, URINE Negative Normal Negative [facility] POC KETONES, URINE Negative Normal Negative [facility] POC LEUKOCYTE ESTERASE, URINE Negative Normal Negative [facility] POC NITRITE, URINE Negative Normal Negative [facility] POC PH, URINE 7.0 Normal 5.0-7.0 [facility] POC PROTEIN, URINE Negative Normal Negative [facility] POC SPECIFIC GRAVITY 1.020 Normal 1.005-1.025 [facility] POC UROBILINOGEN 0.2 mg/dL Normal < 2.0 [facility] POC VBG (EPOC) WITH FULL BARNES EL - [facility] 02-20-2024 BASE EXCESS, VENOUS -0.6 Normal -2.0-2.0 [facility] Comment on above: Order Comment: Negat jimmie: Dilute urine specimens, as indicated by a low specific gravity (<1.010) may not contain representitive levels of hCG. If is still suspected, a serum test or repeat urine test using a first morning urine specimen should be considered. CALCIUM IONIZED 4.7 mg/dL Normal 4.5-5.3 [facility] Comment on above: Order Comment: Negat jimmie: Dilute urine specimens, as indicated by a low specific gravity (<1.010) may not contain representitive levels of hCG. If is still suspected, a serum test or repeat urine test using a first morning urine specimen should be considered. Chloride [Moles/Vol] 105 mmol/L Normal 98-108 [facility] Comment on above: Order Comment: Negat jimmie: Dilute urine specimens, as indicated by a low specific gravity (<1.010) may not contain representitive levels of hCG. If is still suspected, a serum test or repeat urine test using a first morning urine specimen should be considered. Creatinine [Mass/Vol] 0.73 mg/dL Normal 0.40-1.10 [facility] Comment on above: Order Comment: Negat jimmie: Dilute urine specimens, as indicated by a low specific gravity (<1.010) may not contain representitive levels of hCG. If is still suspected, a serum test or repeat urine test using a first morning urine specimen should be considered. Glucose [Mass/Vol] 117 mg/dL High 65-99 [facility] Comment on above: Order Comment: Negat jimmie: Dilute urine specimens, as indicated by a low specific gravity (<1.010) may not contain representitive levels of hCG. If is still suspected, a serum test or repeat urine test using a first morning urine specimen should be considered. HCO3 (Bld) [Moles/Vol] 24.9 mmol/L Normal 24.0-28.0 [facility] Comment on above: Order Comment: Negat jimmie: Dilute urine specimens, as indicated by a low specific gravity (<1.010) may not contain representitive levels of hCG. If is still suspected, a serum test or repeat urine test using a first morning urine specimen should be considered. Hematocrit (Bld) [Volume fraction] 42 % Normal 36-46 [facility] Comment on above: Order Comment: Negat jimmie: Dilute urine specimens, as indicated by a low specific gravity (<1.010) may not contain representitive levels of hCG. If is still suspected, a serum test or repeat urine test using a first morning urine specimen should be considered. HEMOGLOBIN, CALCULATED 14.2 g/dL Normal 12.0-16.0 [facility] Comment on above: Order Comment: Negat jimmie: Dilute urine specimens, as indicated by a low specific gravity (<1.010) may not contain representitive levels of hCG. If is still suspected, a serum test or repeat urine test using a first morning urine specimen should be considered. Oxygen saturation in Blood 55.2 % Normal 40.0-70.0 [facility] Comment on above: Order Comment: Negat jimmie: Dilute urine specimens, as indicated by a low specific gravity (<1.010) may not contain representitive levels of hCG. If is still suspected, a serum test or repeat urine test using a first morning urine specimen should be considered. PCO2 VENOUS 43.0 mm Hg Normal 41.0-51.0 [facility] Comment on above: Order Comment: Negat jimmie: Dilute urine specimens, as indicated by a low specific gravity (<1.010) may not contain representitive levels of hCG. If is still suspected, a serum test or repeat urine test using a first morning urine specimen should be considered. PH VENOUS 7.37 Normal 7.32-7.42 [facility] Comment on above: Order Comment: Negat jimmie: Dilute urine specimens, as indicated by a low specific gravity (<1.010) may not contain representitive levels of hCG. If is still suspected, a serum test or repeat urine test using a first morning urine specimen should be considered. PO2 VENOUS 30 mm Hg Normal 25-40 [facility] Comment on above: Order Comment: Negat jimmie: Dilute urine specimens, as indicated by a low specific gravity (<1.010) may not contain representitive levels of hCG. If is still suspected, a serum test or repeat urine test using a first morning urine specimen should be considered. POC GFR 109 mL/min/1.73 m2 Normal >=60 [facility] Comment on above: Order Comment: Negat jimmie: [...] equation. POC LACTATE 1.3 mmol/L Normal 0.6-2.0 [facility] Comment on above: Order Comment: Negat jimmie: Dilute urine specimens, as indicated by a low specific gravity (<1.010) may not contain representitive levels of hCG. If is still suspected, a serum test or repeat urine test using a first morning urine specimen should be considered. Potassium [Moles/Vol] 3.9 mmol/L Normal 3.5-5.1 [facility] Comment on above: Order Comment: Negat jimmie: Dilute urine specimens, as indicated by a low specific gravity (<1.010) may not contain representitive levels of hCG. If is still suspected, a serum test or repeat urine test using a first morning urine specimen should be considered. Sodium [Moles/Vol] 139 mmol/L Normal 135-145 [facility] Comment on above: Order Comment: Negat jimmie: Dilute urine specimens, as indicated by a low specific gravity (<1.010) may not contain representitive levels of hCG. If is still suspected, a serum test or repeat urine test using a first morning urine specimen should be considered. Urea nitrogen [Mass/Vol] 8 mg/dL Normal 8-25 [facility] Comment on above: Order Comment: Negat jimmie: [...] are negative. PAST HISTORY Past Medical History: @[facility]@ Past Surgical History: has a [...] 3) . Follow-up: Aleena London MD [address] [facility] [id number] In 3 days Final Impression: 1. Right ovarian cyst (Please note that portions of this note were completed with a voice recognition program. Efforts were made to edit the dictations but occasionally words are mis-transcribed.) Libertad Foster MD 02/14/24 1221 AUTHENTICATED BY LIBERTAD FOSTER, ON 02/14/2024 12:21:14 [facility] ED Prov Noteon 02-11-2024 ED Prov Note ED PROVIDER NOTE [facility] EMERGENCY DEPART[facility] NAME: Lana Rivera AGE: 38 y.o. : 1985 VISIT DATE: 02/11/2024 CSN: [id number] PCP: Aleena London MD Chief Complaint Patient [...] Resource Strain: High Risk (02/19/2020) Received from [facility] Overall Financial Resource Strain (CARDIA) Difficulty of Paying Living Expenses: Hard Food Insecurity: No Food Insecurity (02/19/2020) Received from [facility] Hunger Vital Sign Worried About Running Out of Food in the Last Year: Never true Ran Out of Food in the Last Year: Never true Transportation Needs: No Transportation Needs (02/19/2020) Received from [facility] PRAPARE - Transportation Lack of Transportation (Medical): No Lack of Transportation (Non-Medical): No Physical Activity: Insufficiently Active (01/27/2020) Received from [facility] Exercise Vital Sign Days of Exercise per Week: 2 days Minutes of Exercise per Session: 20 min Stress: No Stress Concern Present (01/27/2020) Received from [facility] [place] [facility] [employer] [facility] - Occupational Stress Questionnaire Feeling of Stress : Only a little Social Connections: Moderately Isolated (01/27/2020) Received from [facility] Social Connection and Isolation Panel [NHANES] Frequency of Communication with Friends and Family: More than three times a week Frequency of Social Gatherings with Friends and Family: Twice a week Attends Adventism Services: Never Active Member of Clubs or Organizations: No Attends Club or Organization Meetings: Never Marital Status: Housing Stability: Low Risk (01/27/2020) Received from [facility] Housing Stability Vital Sign Unable to [...] patient is ner (more content not included)... [facility] ED Prov Noteon 01-29-2024 ED Prov Note ED PROVIDER NOTE [facility] EMERGENCY DE[facility] NAME: Lana Rivera AGE: 38 y.o. : 1985 VISIT DATE: 01/29/2024 CSN: [id number] PCP: Aleena London MD Chief Complaint Patient [...] Resource Strain: High Risk (02/19/2020) Received from [facility] Overall Financial Resource Strain (CARDIA) Difficulty of Paying Living Expenses: Hard Food Insecurity: No Food Insecurity (02/19/2020) Received from [facility] Hunger Vital Sign Worried About Running Out of Food in the Last Year: Never true Ran Out of Food in the Last Year: Never true Transportation Needs: No Transportation Needs (02/19/2020) Received from [facility] PRAPARE - Transportation Lack of Transportation (Medical): No Lack of Transportation (Non-Medical): No Physical Activity: Insufficiently Active (01/27/2020) Received from [facility] Exercise Vital Sign Days of Exercise per Week: 2 days Minutes of Exercise per Session: 20 min Stress: No Stress Concern Present (01/27/2020) Received from [facility] [place] [facility] [employer] [facility] - Occupational Stress Questionnaire Feeling of Stress : Only a little Social Connections: Moderately Isolated (01/27/2020) Received from [facility] Social Connection and Isolation Panel [NHANES] Frequency of Communication with Friends and Family: More than three times a week Frequency of Social Gatherings with Friends and Family: Twice a week Attends Adventism Services: Never Active Member of Clubs or Organizations: No Attends Club or Organization Meetings: Never Marital Status: Housing Stability: Low Risk (01/27/2020) Received from [facility] Housing Stability Vital Sign Unable to Pay [...] Comments) In (more content not included)... Normal [facility] COVID-19, MOLECULARon 2023 SARS-CoV-2 (COVID-19) Ab IA Ql Not detected Normal Not Detected [facility] Comment on above: Result Comment: Test ing [...] supply per fill: (more content not included)... [facility] XR CHEST PA/APon 01-16-2024 XR CHEST [...] No evidence of pneumonia. No acute findings. [facility]/phil Workstation ID: [id number] Dictated by: SHILPI PATEL on MonJan 16, 2024 1:10:19 PM EDT Transcribed by: OLY TINAJERO on MonJan 16, 2024 1:25:31 PM EDT Finalized by: SHILPI PATEL on MonJan 16, 2024 4:29:21 PM EDT [facility] Comment on above: Order Comment: Injur [...] a chronic AC joint separation. No change. [facility]/r Workstation ID: [id number] Dictated by: SHILPI PATEL on MonJan 16, 2024 1:09:35 PM EDT Transcribed by: MARIO MEZA on MonJan 16, 2024 1:21:47 PM EDT Finalized by: SHILPI PATEL on MonJan 16, 2024 4:29:26 PM EDT [facility] Comment on above: Order Comment: Injur y/Trauma or Illness?:Illness/Other How long have you had these symptoms (acute/chronic)?:Acute Reason for exam?:lower GI bleed with abd pain Type of Exam?:Initial Additional signs and symptoms?:na ED Prov Noteon 01-07-2024 ED Prov Note ED PROVIDER NOTE [facility] EMERGENCY DE[facility] NAME: Lana Rivera AGE: 38 y.o. 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 and picked [...] Resource Strain: High Risk (02/19/2020) Received from [facility] Overall Financial Resource Strain (CARDIA) Difficulty of Paying Living Expenses: Hard Food Insecurity: No Food Insecurity (02/19/2020) Received from [facility] Hunger Vital Sign Worried About Running Out of Food in the Last Year: Never true Ran Out of Food in the Last Year: Never true Transportation Needs: No Transportation Needs (02/19/2020) Received from [facility] PRAPARE - Transportation Lack of Transportation (Medical): No Lack of Transportation (Non-Medical): No Physical Activity: Insufficiently Active (01/27/2020) Received from [facility] Exercise Vital Sign Days of Exercise per Week: 2 days Minutes of Exercise per Session: 20 min Stress: No Stress Concern Present (01/27/2020) Received from [facility] [place] [employer] [facility] - Occupational Stress Questionnaire Feeling of Stress : Only a little Social Connections: Moderately Isolated (01/27/2020) Received from [facility] Social Connection and Isolation Panel [NHANES] Frequency of Communication with Friends and Family: More than three times a week Frequency of Social Gatherings with Friends and Family: Twice a week Attends Adventism Services: Never Active Member of Clubs or Organizations: No Attends Club or Organization Meetings: Never Marital Status: Housing Stability: Low Risk (01/27/2020) Received from [facility] Housing Stability Vital Sign Unable to Pay [...] F (37.4 deg (more content not included)... [facility] XR SHOULDER LEFT 2+ VIEWS (S [...] ID: [id number] Dictated by: BELKYS KITCHEN on [place] Jan 07, 2024 8:59:23 AM EDT Transcribed by: BELKYS KITCHEN on [place] Jan 07, 2024 8:59:23 AM EDT Finalized by: BELKYS KITCHEN on [place] Jan 07, 2024 8:59:23 AM EDT [facility] Comment on above: Order Comment: Injur y/Trauma or Illness?:Illness/Other How long have you had these symptoms (acute/chronic)?:Acute Reason for exam?:sudden onset of lower abd and right sided back pain in the night hx of ovarian cyst and endometreosis Type of Exam?:Initial Additional signs and symptoms?:na ED Prov Noteon 12-01-2023 ED Prov Note ED PROVIDER NOTE [facility] EM[facility]GENC[facility] DE[facility] NAME: Lana Rivera AGE: 38 y.o. : 1985 VISIT DATE: 12/01/2023 CSN: [id number] PCP: Aleena Lnodon MD Chief Complaint Patient presents with Ankle [...] Resource Strain: High Risk (02/19/2020) Received from [facility] Overall Financial Resource Strain (CARDIA) Difficulty of Paying Living Expenses: Hard Food Insecurity: No Food Insecurity (02/19/2020) Received from [facility] Hunger Vital Sign Worried About Running Out of Food in the Last Year: Never true Ran Out of Food in the Last Year: Never true Transportation Needs: No Transportation Needs (02/19/2020) Received from [facility] PRAPARE - Transportation Lack of Transportation (Medical): No Lack of Transportation (Non-Medical): No Physical Activity: Insufficiently Active (01/27/2020) Received from [facility] Exercise Vital Sign Days of Exercise per Week: 2 days Minutes of Exercise per Session: 20 min Stress: No Stress Concern Present (01/27/2020) Received from [facility] [place] [employer] [facility] - Occupational Stress Questionnaire Feeling of Stress : Only a little Social Connections: Moderately Isolated (01/27/2020) Received from [facility] Social Connection and Isolation Panel [NHANES] Frequency of Communication with Friends and Family: More than three times a week Frequency of Social Gatherings with Friends and Family: Twice a week Attends Adventism Services: Never Active Member of Clubs or Organizations: No Attends Club or Organization Meetings: Never Marital Status: Housing Stability: Low Risk (01/27/2020) Received from [facility] Housing Stability Vital Sign Unable to Pay for Housing in the Last Year: No Number of Places Lived in the Last Year: 1 In the last 12 months, was there a time when you did not have a steady place to sleep or slept in a long-term (including now)?: No Previous Medications Medication Sig [...] a child Promet (more content not included)... [facility] XR ANKLE RIGHT 3+ VIEWS (STA [...] normal limits. IMPRESSION: No acute osseous abnormality. /[facility] Workstation ID: [id number] Dictated by: JOHANNA MARCH on MonDec 01, 2023 1:52:10 PM EDT Transcribed by: CATINA NIETO on MonDec 01, 2023 2:05:31 PM EDT Finalized by: JOHANNA MARCH on MonDec 01, 2023 4:58:59 PM EDT [facility] Comment on above: Order Comment: Injur [...] are negative. PAST HISTORY Past Medical History: @[facility]@ Past Surgical History: has a [...] radiopaque foreign body in the right foot. [employer] Workstation ID: [id number] -- NURSING NOTES AND [...] disc disease, will provide short course of [place] for pain and patient to continue ketoprofen [...] total) by mouth (more content not included)... [facility] XR FOOT RIGHT 3+ VIEWS (MOI [...] radiopaque foreign body in the right foot. [facility] Workstation ID: [id number] Dictated by: GREYSON SCHROEDER on [facility] Nov 25, 2023 9:36:41 AM EDT Transcribed by: KENNY ARRIAGA on [facility] Nov 25, 2023 9:39:36 AM EDT Finalized by: GREYSON SCHROEDER on [facility] Nov 25, 2023 10:29:24 AM EDT [facility] Comment on above: Order Comment: Injur y/Trauma or Illness?:Illness/Other How long have you had these symptoms (acute/chronic)?:Acute Reason for exam?:sudden onset of lower abd and right sided back pain in the night hx of ovarian cyst and endometreosis Type of Exam?:Initial Additional signs and symptoms?:na Absolute lymphocyte countOrd ered By: Sorin Jacobs on 09-29-2023 Lymphocytes Auto (Unsp spec) [#/Vol] 1.56 10*3/uL 0.83-4.51 [facility] Automated lymphocyte count a s percentage of total leukocytesOrdered By: Sorinautumn Jacobs on 09-29-2023 Lymphocytes/100 WBC Auto (Unsp spec) 26.8 % 19-41 [facility] Basophil percentageOrdered B y: Sorin Jacobs on 09-29-2023 Basophil percentage 14.4 g/dL 12.0-15.0 [facility] Basophils (Bld) [#/Vol] 5.8 10*3/uL 4.4-11.0 [facility] Basophils (Bld) [#/Vol] 3.5 10*3/uL 2.0-7.7 [facility] Basophils/100 WBC (Bld) 59.6 % 47-70 [facility] Basophils/100 WBC (Bld) 9.4 % 0-10 [facility] Basophils/100 WBC (Bld) 3.4 % 0-5 [facility] Basophils/100 WBC (Bld) 0.5 % 0-1 [facility] Determination of erythrocyte mean corpuscular volume (MCV)Ordered By: Sorin Jacobs on 09-29-2023 MCV (RBC) [Entitic vol] 86.0 fL 81-99 [facility] Erythrocyte distribution wid th ratioOrdered By: Sorin Jacobs on 09-29-2023 Erythrocyte distribution width (RBC) [Ratio] 13.2 % 11.6-14.6 [facility] Erythrocyte distribution wid th standard deviationOrdered By: Sorinautumn Jacobs on 09-29-2023 Erythrocyte distribution width (RBC) [Entitic vol] 41.2 fL 35.1-43.9 [facility] Hematocrit Auto (Bld) [Volum e fraction]Ordered By: Sorin Jacobs on 09-29-2023 Hematocrit (Bld) [Volume fraction] 44.4 % 37-47 [facility] Immature granulocytes/100 WB C Auto (Bld)Ordered By: Sorin Jacobs on 09-29-2023 Immature granulocytes/100 WBC (Bld) 0.300 % 0.0-0.9 [facility] No Panel InformationOrdered By: Sorin Jacobs on 09-29-2023 27.9 pg 27.0-32.0 [facility] 32.4 g/dL 32-36 [facility] 173 K/mm3 150-450 [facility] 10.6 fl 6.2-12.0 [facility] 0 % 0-5 [facility] RBC Auto (Bld) [#/Vol]Ordere d By: Sorin Jacobs on 09-29-2023 RBC (Bld) [#/Vol] 5.16 10*6/uL 4.2-5.4 [facility] Throat specimen bacteria gregorio ntification by cultureOrdered By: Oscar Fuller on 09-21-2023 Bacteria identified Cx Nom (Throat) streptococcus isolated. [facility] Rapid group A Streptococcus screen at point of careon 09-14-2023 S. pyogenes Ag IA.rapid Ql (Throat) Negative [facility] Absolute lymphocyte countOrd ered By: Irving Lobato on 09-05-2023 Lymphocytes Auto (Unsp spec) [#/Vol] 1.28 10*3/uL 0.83-4.51 [facility] Automated lymphocyte count a s percentage of total leukocytesOrdered By: Irving Lboato on 09-05-2023 Lymphocytes/100 WBC Auto (Unsp spec) 27.5 % 19-41 [facility] Basophil percentageOrdered B y: Irving Lobato on 09-05-2023 Basophil percentage 13.7 g/dL 12.0-15.0 [facility] Basophil percentage 109 mg/dL 74-106 [facility] Basophil percentage 7.1 g/dL 6.4-8.2 [facility] Basophil percentage 0.30 mg/dL 0.20-1.00 [facility] Basophil percentage 139 mmol/L 136-145 [facility] Basophil percentage 3.7 mmol/L 3.5-5.1 [facility] Basophil percentage 108 mmol/L 98-107 [facility] Basophils (Bld) [#/Vol] 4.7 10*3/uL 4.4-11.0 [facility] Basophils (Bld) [#/Vol] 2.7 10*3/uL 2.0-7.7 [facility] Basophils/100 WBC (Bld) 57.3 % 47-70 [facility] Basophils/100 WBC (Bld) 9.4 % 0-10 [facility] Basophils/100 WBC (Bld) 4.5 % 0-5 [facility] Basophils/100 WBC (Bld) 0.9 % 0-1 [facility] Chlamydia trachomatis rRNA d etection by probe and target amplification methodOrdered By: Diana Gunn on 09-05-2023 C. trachomatis rRNA JONE+probe Ql (Unsp spec) Negative Negative [facility] Determination of erythrocyte mean corpuscular volume (MCV)Ordered By: Irving Lobato on 09-05-2023 MCV (RBC) [Entitic vol] 83.8 fL 81-99 [facility] Erythrocyte distribution wid th ratioOrdered By: Irving Lobato on 09-05-2023 Erythrocyte distribution width (RBC) [Ratio] 12.6 % 11.6-14.6 [facility] Erythrocyte distribution wid th standard deviationOrdered By: Irving Lobato on 09-05-2023 Erythrocyte distribution width (RBC) [Entitic vol] 38.2 fL 35.1-43.9 [facility] Gram stain for investigation of transfusion reactionOrdered By: Diana Gunn on 09-05-2023 Microscopic observation Gram stain Nom (Unsp spec) [facility] HIV 1 and HIV-2 antibody ass ay with HIV-1 p24 antigen detectionOrdered By: Diana Gunn on 09-05-2023 HIV 1+2 Ab+HIV1 p24 Ag IA Ql Non-Reactive Nonreactive [facility] Hematocrit Auto (Bld) [Volum e fraction]Ordered By: Irving Lobato on 09-05-2023 Hematocrit (Bld) [Volume fraction] 41.0 % 37-47 [facility] Immature granulocytes/100 WB C Auto (Bld)Ordered By: Irving Lobato on 09-05-2023 Immature granulocytes/100 WBC (Bld) 0.400 % 0.0-0.9 [facility] No Panel InformationOrdered By: Diana Gunn on 09-05-2023 Negative Negative [facility] Yeast, not Chela albicans [facility] Non-Reactive Nonreactive [facility] No Panel InformationOrdered By: Irving Lobato on 09-05-2023 28.0 pg 27.0-32.0 [facility] 33.4 g/dL 32-36 [facility] 193 K/mm3 150-450 [facility] 10.9 fl 6.2-12.0 [facility] 0 % 0-5 [facility] 13.0 SECONDS 11.7-14.9 [facility] 1.0 [facility] 84 mL/min >60 [facility] 102 mL/min >60 [facility] 11.1 RATIO 10-20 [facility] 3.5 g/dL 2.2-4.2 [facility] 1.0 RATIO 0.9-2.4 [facility] 66 U/L 45-117 [facility] 24 U/L 13-56 [facility] 26.0 mmol/L 21.0-32.0 [facility] < 2.90 mg/L 0.0-3.0 [facility] 288 pg/mL 211-911 [facility] No Panel Informationon 09-04 Negative [facility] RBC Auto (Bld) [#/Vol]Ordere d By: Irving Lobato on 09-05-2023 RBC (Bld) [#/Vol] 4.89 10*6/uL 4.2-5.4 [facility] Serum Treponema species anti body detectionOrdered By: Diana Gunn on 09-05-2023 Treponema sp Ab Ql (S) Non-Reactive [facility] Serum or plasma calcium mg urement (mass/volume)Ordered By: Irving Lobato on 09-05-2023 Calcium [Mass/Vol] 8.5 mg/dL 8.5-10.1 [facility] Serum or plasma creatinine m easurement (mass/volume)Ordered By: Irving Lobato on 09-05-2023 Creatinine [Mass/Vol] 0.81 mg/dL 0.55-1.[address] [facility] Serum or plasma thyroid stim ulating hormone (TSH) measurement (units/volume)Ordered By: Irving Lobato on 09-05-2023 TSH Qn 0.81 uIU/mL 0.358-3.74 [facility] Serum or plasma urea nitroge n measurement (mass/volume)Ordered By: Irving Lobato on 09-05-2023 Urea nitrogen [Mass/Vol] 9 mg/dL 7-18 [facility] Thin prep Papanicolaou smear with manual screeningOrdered By: Irving Lobato on 09-05-2023 Thin prep Papanicolaou smear with manual screening 3.6 g/dL 3.2-5.0 [facility] Thin prep Papanicolaou smear with manual screening 14 U/L 15-37 [facility] Thin prep Papanicolaou smear with manual screening 5 5-15 [facility] Thin prep Papanicolaou smear with manual screening 1.24 ng/dL 0.76-1.46 [facility] Whole blood hemoglobin A1c/t otal hemoglobin ratio (mass fraction)Ordered By: Irving Lobato on 09-05-2023 HbA1c (Bld) [Mass fraction] 5.6 % 3.8-5.6 [facility] Bacteria identified Cx Nom ( Throat)Ordered By: Oscar Fuller on 08-31-2023 Throat specimen bacteria identification by culture Streptococcus group A [facility] CNOVSPon 08-16-2023 CNOVSP Visit (SP) Office ([facility]) LANA RIVERA ([id number]) 1985 F Date Time Provider Department 08/16/23 2:30 PM ARGELIA VASQUEZ During your visit today, we recorded the following information about you: Jayla Medina APRN.ANALYTICS DIRECTOR 08/29/2023 11:24 AM Signed PATIENT DID NOT SHOW UP FOR APPOINTMENT ABSTRACT HPI: Ms. Rivera is a 38 year old female who has a past medical history of ADHD, anxiety/depression, diabetes, hypertension, fibromyalgia, Almaz's thyroiditis now with hypothyroidism, melanoma, migraine without aura, obesity, PCOS, and smoking. Per Dr. Eubnaks's note on 11/16/2022: Patient reports that she [...] years as her is s/p vasectomy. Her Repair Service Clerk is Dr. Garcia and Dr. Moore IMAGING: [...] before breakfa (more content not included)... Normal [facility] Absolute lymphocyte countOrd ered By: Ashutosh Barajas on 07-25-2023 Lymphocytes Auto (Unsp spec) [#/Vol] 2.07 10*3/uL 0.83-4.51 [facility] Automated lymphocyte count a s percentage of total leukocytesOrdered By: Ashutosh Barajas on 07-25-2023 Lymphocytes/100 WBC Auto (Unsp spec) 31.5 % 19-41 [facility] Basophil percentageOrdered B y: Ashutosh Barajas on 07-25-2023 Basophil percentage 13.6 g/dL 12.0-15.0 [facility] Basophil percentage 103 mg/dL 74-106 [facility] Basophil percentage 139 mmol/L 136-145 [facility] Basophil percentage 3.6 mmol/L 3.5-5.1 [facility] Basophil percentage 110 mmol/L 98-107 [facility] Basophils (Bld) [#/Vol] 6.6 10*3/uL 4.4-11.0 [facility] Basophils (Bld) [#/Vol] 3.7 10*3/uL 2.0-7.7 [facility] Basophils/100 WBC (Bld) 56.2 % 47-70 [facility] Basophils/100 WBC (Bld) 7.5 % 0-10 [facility] Basophils/100 WBC (Bld) 4.1 % 0-5 [facility] Basophils/100 WBC (Bld) 0.5 % 0-1 [facility] Basophil percentageOrdered B y: ED PROVIDER on 07-25-2023 Basophil percentage 0 SEEN /hpf 0-5 [facility] Bilirubin Test strip Ql (U)O rdered By: ED PROVIDER on 07-25-2023 Bilirubin Ql (U) Negative Negative [facility] Determination of erythrocyte mean corpuscular volume (MCV)Ordered By: Ashutosh Barajas on 07-25-2023 MCV (RBC) [Entitic vol] 84.2 fL 81-99 [facility] Erythrocyte distribution wid th ratioOrdered By: Ashutosh Barajas on 07-25-2023 Erythrocyte distribution width (RBC) [Ratio] 12.7 % 11.6-14.6 [facility] Erythrocyte distribution wid th standard deviationOrdered By: Ashutosh Barajas on 07-25-2023 Erythrocyte distribution width (RBC) [Entitic vol] 38.5 fL 35.1-43.9 [facility] Hematocrit Auto (Bld) [Volum e fraction]Ordered By: Ashutosh Barajas on 07-25-2023 Hematocrit (Bld) [Volume fraction] 40.4 % 37-47 [facility] Immature granulocytes/100 WB C Auto (Bld)Ordered By: Ashutosh Barajas on 07-25-2023 Immature granulocytes/100 WBC (Bld) 0.200 % 0.0-0.9 [facility] Ketones Test strip Ql (U)Ord ered By: ED PROVIDER on 07-25-2023 Ketones Ql (U) Negative Negative [facility] Mucus LM Ql (Urine sed)Order ed By: ED PROVIDER on 07-25-2023 Mucus Ql (Urine sed) 0 SEEN /hpf [facility] Nitrite Test strip Ql (U)Ord ered By: ED PROVIDER on 07-25-2023 Nitrite Ql (U) Negative Negative [facility] No Panel InformationOrdered By: Ashutosh Barajas on 07-25-2023 28.3 pg 27.0-32.0 [facility] 33.7 g/dL 32-36 [facility] 179 K/mm3 150-450 [facility] 10.9 fl 6.2-12.0 [facility] 0 % 0-5 [facility] 101 mL/min >60 [facility] 122 mL/min >60 [facility] 137.22 ml/min [facility] 15.8 RATIO 10-20 [facility] 26.0 mmol/L 21.0-32.0 [facility] No Panel InformationOrdered By: ED PROVIDER on 07-25-2023 0 SEEN /hpf 0-5 [facility] Protein Test strip Ql (U)Ord ered By: ED PROVIDER on 07-25-2023 Protein Ql (U) Negative Negative [facility] RBC Auto (Bld) [#/Vol]Ordere d By: Ashutosh Barajas on 07-25-2023 RBC (Bld) [#/Vol] 4.80 10*6/uL 4.2-5.4 [facility] Serum or plasma calcium mg urement (mass/volume)Ordered By: Ashutosh Barajas on 07-25-2023 Calcium [Mass/Vol] 8.8 mg/dL 8.5-10.1 [place] [facility] [place] creatinine m easurement (mass/volume)Ordered By: Ashutosh Barajas on 07-25-2023 Creatinine [Mass/Vol] 0.70 mg/dL 0.55-1.02 [facility] [place] or plasma urea nitroge n measurement (mass/volume)Ordered By: Ashutosh Barajas on 07-25-2023 Urea nitrogen [Mass/Vol] 11 mg/dL 7-18 [facility] Squamous epithelial cells de tection in urine sediment by light microscopyOrdered By: ED PROVIDER on 07-25-2023 Epithelial cells.squamous LM Ql (Urine sed) 0-5 SEEN /hpf 5-10 [facility] Thin prep Papanicolaou smear with manual screeningOrdered By: Ashutosh Barajas on 07-25-2023 Thin prep Papanicolaou smear with manual screening 3 5-15 [facility] Urine blood detectionOrdered By: ED PROVIDER on 07-25-2023 RBC Ql (U) Negative Negative [facility] Urine clarityOrdered By: ED PROVIDER on 07-25-2023 Clarity (U) Clear Clear [facility] Urine color determinationOrd ered By: ED PROVIDER on 07-25-2023 Color (U) Yellow Yellow [facility] Urine glucose detectionOrder ed By: ED PROVIDER on 07-25-2023 Glucose Ql (U) Normal mg/dl Normal [facility] Urine leukocyte esterase det ection by dipstickOrdered By: ED PROVIDER on 07-25-2023 Leukocyte esterase Test strip Ql (U) Negative Negative [facility] Urine pHOrdered By: ED PROVI TITA on 07-25-2023 pH (U) 6.0 [pH] 5.0 - 8.0 [facility] Urine sediment bacteria coun t by microscopy (number/high power field)Ordered By: ED PROVIDER on 07-25-2023 Bacteria LM.HPF (Urine sed) [#/Area] 0 /[HPF] None Seen [facility] Urine specific gravity measu rementOrdered By: ED PROVIDER on 07-25-2023 Specific gravity (U) [Rel density] 1.015 1.002-1.030 [facility] Urine urobilinogen measureme ntOrdered By: ED PROVIDER on 07-25-2023 Urobilinogen Ql (U) Normal mg/dl Normal [facility] No Panel InformationOrdered By: Ashutosh Barajas on 07-18-2023 < 0.27 FEU/ug/m 0.27-0.49 [facility] 178 U/L 26-192 [facility] Absolute lymphocyte countOrd ered By: Ralph Tracy on 05-03-2023 Lymphocytes Auto (Unsp spec) [#/Vol] 1.14 10*3/uL 0.83-4.51 [facility] Basophil percentageOrdered B y: Ralph Tracy on 05-03-2023 Basophil percentage 159 mg/dL 74-106 [facility] Basophil percentage 7.0 g/dL 6.4-8.2 [facility] Basophil percentage 0.40 mg/dL 0.20-1.00 [facility] Basophil percentage 137 mmol/L 136-145 [facility] Basophil percentage 3.6 mmol/L 3.5-5.1 [facility] Basophil percentage 107 mmol/L 98-107 [facility] Basophil percentage 13.0 umol/L 11-32 [facility] Basophil percentage 168 U/L 84-246 [facility] Basophil percentage Not Reportable [facility] Basophils (Bld) [#/Vol] 4.8 10*3/uL 4.4-11.0 [facility] Basophils (Bld) [#/Vol] 3.1 10*3/uL 2.0-7.7 [facility] Basophils/100 WBC (Bld) 65.8 % 47-70 [facility] Basophils/100 WBC (Bld) 3.8 % 0-5 [facility] Basophils/100 WBC (Bld) 0.6 % 0-1 [facility] Blood erythrocytes count (nu mber/volume)Ordered By: Ralph Tracy on 05-03-2023 RBC (Bld) [#/Vol] 5.11 10*6/uL 4.2-5.4 [facility] Blood hemoglobin measurement (mass/volume)Ordered By: Ralph Tracy on 05-03-2023 Hemoglobin (Bld) [Mass/Vol] 14.1 g/dL 12.0-15.0 [facility] Blood lymphocytes/100 leukoc ytesOrdered By: Ralph Tracy on 05-03-2023 Lymphocytes/100 WBC (Bld) 23.9 % 19-41 [facility] Blood monocytes/100 leukocyt esOrdered By: Ralph Tracy on 05-03-2023 Monocytes/100 WBC (Bld) 5.5 % 0-10 [facility] Blood platelet mean volumeOr dered By: Ralph Tracy on 05-03-2023 Platelet mean volume (Bld) [Entitic vol] 11.4 fL 6.2-12.0 [facility] Determination of erythrocyte mean corpuscular volume (MCV)Ordered By: Ralph Tracy on 05-03-2023 MCV (RBC) [Entitic vol] 86.3 fL 81-99 [facility] Erythrocyte sedimentation ra teOrdered By: Ralph Tracy on 05-03-2023 ESR (Bld) [Velocity] 2 mm/h 0-30 [facility] Hematocrit Auto (Bld) [Volum e fraction]Ordered By: Ralph Tracy on 05-03-2023 Hematocrit (Bld) [Volume fraction] 44.1 % 37-47 [facility] INR in Blood by Coagulation assayOrdered By: Ralph Tracy on 05-03-2023 INR Coag (Bld) [Relative time] 1.0 {INR} [facility] MCHC Auto (RBC) [Mass/Vol]Or dered By: Ralph Tracy on 05-03-2023 MCHC (RBC) [Mass/Vol] 32.0 g/dL 32-[address] [facility] No Panel InformationOrdered By: Ralph Tracy on 05-03-2023 27.6 pg 27.0-32.0 [facility] 13.1 % 11.6-14.6 [facility] 40.8 fl 35.1-43.9 [facility] 0.400 % 0.0-0.9 [facility] 0 % 0-5 [facility] 13.2 SECONDS 11.7-14.9 [facility] 75 mL/min >60 [facility] 91 mL/min >60 [facility] 10.0 RATIO 10-20 [facility] 3.4 g/dL 2.2-4.2 [facility] 65 U/L 45-117 [facility] 20 U/L 13-56 [facility] 24.0 mmol/L 21.0-32.0 [facility] 22.6 ng/mL [facility] Negative Negative [facility] Not Reportable [facility] <2 U/mL 0-5 [facility] Platelets bldOrdered By: Mir Tracy on 05-03-2023 Platelets (Bld) [#/Vol] 180 10*3/uL 150-450 [facility] Serum DNA double strand anti body assay (units/volume)Ordered By: Ralph Tracy on 05-03-2023 DNA double strand Ab Qn (S) Not Reportable [facility] Serum Alise-1 antibody assay (u nits/volume)Ordered By: Ralph Tracy on 05-03-2023 Alise-1 extractable nuclear Ab Qn (S) Not Reportable [facility] Serum Scl-70 extractable nuc lear antibody assay (units/volume)Ordered By: Ralph Tracy on 05-03-2023 SCL-70 extractable nuclear Ab Qn (S) Not Reportable [facility] Serum Freedman extractable nucl ear antibody detectionOrdered By: Ralph Tracy on 05-03-2023 Freedman extractable nuclear Ab Ql (S) Not Reportable [facility] Serum or plasma C reactive p rotein measurement (mass/volume)Ordered By: Ralph Tracy on 05-03-2023 CRP [Mass/Vol] mg/L 0.0-3.0 [facility] Serum or plasma albumin mg urement (mass/volume)Ordered By: Ralph Tracy on 05-03-2023 Albumin [Mass/Vol] 3.6 g/dL 3.2-5.0 [facility] Serum or plasma albumin/glob ulin mass ratioOrdered By: Ralph Tracy on 05-03-2023 Albumin/Globulin [Mass ratio] 1.1 {ratio} 0.9-2.4 [facility] Serum or plasma [id number] protein tumor marker measurement (units/volume)Ordered By: Ralph Tracy on 05-03-2023 AFP.tumor marker Qn 2.2 ng/mL 0.0-6.4 [facility] Serum or plasma calcium mg urement (mass/volume)Ordered By: Ralph Tracy on 05-03-2023 Calcium [Mass/Vol] 8.9 mg/dL 8.5-10.1 [facility] Serum or plasma creatinine m easurement (mass/volume)Ordered By: Ralph Tracy on 05-03-2023 Creatinine [Mass/Vol] 0.90 mg/dL 0.55-1.[address] [facility] Serum or plasma urea nitroge n measurement (mass/volume)Ordered By: Ralph Tracy on 05-03-2023 Urea nitrogen [Mass/Vol] 9 mg/dL 7-18 [facility] Thin prep Papanicolaou smear with manual screeningOrdered By: Ralph Tracy on 05-03-2023 Thin prep Papanicolaou smear with manual screening 8 U/L 15-37 [facility] Thin prep Papanicolaou smear with manual screening 6 5-15 [facility] No Panel Informationon 04-19 5.7 % 4.2-6.3 [facility] No Panel InformationOrdered By: Cassidy Moore on 04-06-2023 1.15 ng/dL 0.76-1.46 [facility] 4.7 mIU/mL [facility] 95.1 ug/dL 57.3-279.2 [facility] Serum or plasma 17-hydroxypr ogesterone measurement (mass/volume)Ordered By: Cassidy Moore on 04-06-2023 17-Hydroxyprogesterone [Mass/Vol] 17 ng/dL . [facility] Serum or plasma estradiol (E 2) measurement (mass/volume)Ordered By: Cassidy Moore on 04-06-2023 E2 [Mass/Vol] 29.2 pg/mL [facility] Serum or plasma testosterone free measurement (mass/volume)Ordered By: Cassidy Moore on 04-06-2023 Testosterone Free [Mass/Vol] 0.4 pg/mL 0.0-4.2 [facility] Basophil percentageOrdered B y: Ralph Tracy on 03-28-2023 Basophil percentage 109 mg/dL 74-106 [facility] Basophil percentage 6.9 g/dL 6.4-8.2 [facility] Basophil percentage 0.30 mg/dL 0.20-1.00 [facility] Basophil percentage 137 mmol/L 136-145 [facility] Basophil percentage 3.9 mmol/L 3.5-5.1 [facility] Basophil percentage 105 mmol/L 98-107 [facility] Direct bilirubinOrdered By: Ralph Tracy on 03-28-2023 Bilirubin.direct [Mass/Vol] 0.11 mg/dL 0.00-0.30 [facility] No Panel InformationOrdered By: Ralph Tracy on 03-28-2023 81 mL/min >60 [facility] 98 mL/min >60 [facility] 10.7 RATIO 10-20 [facility] 3.3 g/dL 2.2-4.2 [facility] 65 U/L 45-117 [facility] 23 U/L 13-56 [facility] 31.0 mmol/L 21.0-32.0 [facility] Serum or plasma albumin mg urement (mass/volume)Ordered By: Ralph Tracy on 03-28-2023 Albumin [Mass/Vol] 3.6 g/dL 3.2-5.0 [facility] Serum or plasma albumin/glob ulin mass ratioOrdered By: Ralph Tracy on 03-28-2023 Albumin/Globulin [Mass ratio] 1.1 {ratio} 0.9-2.4 [facility] Serum or plasma calcium mg urement (mass/volume)Ordered By: Ralph Tracy on 03-28-2023 Calcium [Mass/Vol] 9.0 mg/dL 8.5-10.1 [facility] Serum or plasma creatinine m easurement (mass/volume)Ordered By: Ralph Tracy on 03-28-2023 Creatinine [Mass/Vol] 0.84 mg/dL 0.55-1.[address] [facility] Serum or plasma urea nitroge n measurement (mass/volume)Ordered By: Ralph Tracy on 03-28-2023 Urea nitrogen [Mass/Vol] 9 mg/dL 7-18 [facility] Thin prep Papanicolaou smear with manual screeningOrdered By: Ralph Tracy on 03-28-2023 Thin prep Papanicolaou smear with manual screening 12 U/L 15-37 [facility] Thin prep Papanicolaou smear with manual screening 1 5-15 [facility] No Panel InformationOrdered By: Aleena London on 03-03-2023 1.24 uIU/mL 0.358-3.74 [facility] Absolute lymphocyte countOrd ered By: Loly Sierra on 02-08-2023 Lymphocytes Auto (Unsp spec) [#/Vol] 1.87 10*3/uL 0.83-4.51 [facility] Basophil percentageOrdered B y: Loly Sierra on 02-08-2023 Basophil percentage 0 SEEN /hpf 0-5 [facility] Basophil percentage 110 mg/dL 74-106 [facility] Basophil percentage 6.7 g/dL 6.4-8.2 [facility] Basophil percentage 0.10 mg/dL 0.20-1.00 [facility] Basophil percentage 138 mmol/L 136-145 [facility] Basophil percentage 3.8 mmol/L 3.5-5.1 [facility] Basophil percentage 107 mmol/L 98-107 [facility] Basophils (Bld) [#/Vol] 5.6 10*3/uL 4.4-11.0 [facility] Basophils (Bld) [#/Vol] 2.9 10*3/uL 2.0-7.7 [facility] Basophils/100 WBC (Bld) 51.2 % 47-70 [facility] Basophils/100 WBC (Bld) 4.5 % 0-5 [facility] Basophils/100 WBC (Bld) 0.9 % 0-1 [facility] Bilirubin Test strip Ql (U)O rdered By: Loly Sierra on 02-08-2023 Bilirubin Ql (U) Negative Negative [facility] Blood erythrocytes count (nu mber/volume)Ordered By: Loly Sierra on 02-08-2023 RBC (Bld) [#/Vol] 4.74 10*6/uL 4.2-5.4 [facility] Blood hemoglobin measurement (mass/volume)Ordered By: Loly Sierra on 02-08-2023 Hemoglobin (Bld) [Mass/Vol] 13.2 g/dL 12.0-15.0 [facility] Blood lymphocytes/100 leukoc ytesOrdered By: Loly Sierra on 02-08-2023 Lymphocytes/100 WBC (Bld) 33.5 % 19-41 [facility] Blood monocytes/100 leukocyt esOrdered By: Loly Sierra on 02-08-2023 Monocytes/100 WBC (Bld) 9.5 % 0-10 [facility] Blood platelet mean volumeOr dered By: Loly Sierra on 02-08-2023 Platelet mean volume (Bld) [Entitic vol] 10.8 fL 6.2-12.0 [facility] Determination of erythrocyte mean corpuscular volume (MCV)Ordered By: Loly Sierra on 02-08-2023 MCV (RBC) [Entitic vol] 86.5 fL 81-99 [facility] Hematocrit Auto (Bld) [Volum e fraction]Ordered By: Loly Sierra on 02-08-2023 Hematocrit (Bld) [Volume fraction] 41.0 % 37-47 [facility] Ketones Test strip Ql (U)Ord ered By: Loly Sierra on 02-08-2023 Ketones Ql (U) Negative Negative [facility] MCHC Auto (RBC) [Mass/Vol]Or dered By: Loly Sierra on 02-08-2023 MCHC (RBC) [Mass/Vol] 32.2 g/dL 32-[address] [facility] Mucus LM Ql (Urine sed)Order ed By: Loly Sierra on 02-08-2023 Mucus Ql (Urine sed) 0 SEEN /hpf [facility] Nitrite Test strip Ql (U)Ord ered By: Loly Sierra on 02-08-2023 Nitrite Ql (U) Negative Negative [facility] No Panel InformationOrdered By: Loly Sierra on 02-08-2023 27.8 pg 27.0-32.0 [facility] 13.0 % 11.6-14.6 [facility] 40.7 fl 35.1-43.9 [facility] 0.400 % 0.0-0.9 [facility] 0 % 0-5 [facility] 86 mL/min >60 [facility] 104 mL/min >60 [facility] 90.75 ml/min [facility] 12.4 RATIO 10-20 [facility] 3.2 g/dL 2.2-4.2 [facility] 61 U/L 45-117 [facility] 24 U/L 13-56 [facility] 27.0 mmol/L 21.0-32.0 [facility] Platelets bldOrdered By: Reyna Sierra on 02-08-2023 Platelets (Bld) [#/Vol] 177 10*3/uL 150-450 [facility] Protein Test strip Ql (U)Ord ered By: Loly Sierra on 02-08-2023 Protein Ql (U) Negative Negative [facility] Serum or plasma albumin mg urement (mass/volume)Ordered By: Loly Sierra on 02-08-2023 Albumin [Mass/Vol] 3.5 g/dL 3.2-5.0 [facility] Serum or plasma albumin/glob ulin mass ratioOrdered By: Loly Sierar on 02-08-2023 Albumin/Globulin [Mass ratio] 1.1 {ratio} 0.9-2.4 [facility] Serum or plasma calcium mg urement (mass/volume)Ordered By: Loly Seirra on 02-08-2023 Calcium [Mass/Vol] 8.8 mg/dL 8.5-10.1 [facility] Serum or plasma creatinine m easurement (mass/volume)Ordered By: Loly Sierra on 02-08-2023 Creatinine [Mass/Vol] 0.81 mg/dL 0.55-1.[address] [facility] Serum or plasma urea nitroge n measurement (mass/volume)Ordered By: Loly Sierra on 02-08-2023 Urea nitrogen [Mass/Vol] 10 mg/dL 7-18 [facility] Squamous epithelial cells de tection in urine sediment by light microscopyOrdered By: Loly Sierra on 02-08-2023 Epithelial cells.squamous LM Ql (Urine sed) 0-5 SEEN /hpf 5-10 [facility] Thin prep Papanicolaou smear with manual screeningOrdered By: Loly Sierra on 02-08-2023 Thin prep Papanicolaou smear with manual screening 12 U/L 15-37 [facility] Thin prep Papanicolaou smear with manual screening 4 5-15 [facility] Urine blood detectionOrdered By: Loly Sierra on 02-08-2023 RBC Ql (U) Negative Negative [facility] RBC Ql (U) 0 SEEN /hpf 0-5 [facility] Urine clarityOrdered By: Reyna Sierra on 02-08-2023 Clarity (U) Clear Clear [facility] Urine color determinationOrd ered By: Loly Sierra on 02-08-2023 Color (U) Yellow Yellow [facility] Urine glucose detectionOrder ed By: Loly Sierra on 02-08-2023 Glucose Ql (U) Normal mg/dl Normal [facility] Urine leukocyte esterase det ection by dipstickOrdered By: Loly Sierra on 02-08-2023 Leukocyte esterase Test strip Ql (U) Negative Negative [facility] Urine pHOrdered By: Loly ferris on 02-08-2023 pH (U) 6.0 [pH] 5.0 - 8.0 [facility] Urine sediment bacteria coun t by microscopy (number/high power field)Ordered By: Loly Sierra on 02-08-2023 Bacteria LM.HPF (Urine sed) [#/Area] 0 /[HPF] None Seen [facility] Urine specific gravity measu rementOrdered By: Loly Sierra on 02-08-2023 Specific gravity (U) [Rel density] 1.020 1.002-1.030 [facility] Urobilinogen Auto test strip Ql (U)Ordered By: Loly Sierra on 02-08-2023 Urobilinogen Ql (U) Normal mg/dl Normal [facility] CNPNon 02-02-2023 CNPN Telephone (FAMPWS) LANA RIVERA ([id number]) 1985 F Date Time Provider Department 02/02/23 NIMA KAUR FAMWS During your visit today, we recorded the following information about you: Radha Stark 02/02/2023 2:03 PM Signed Lana Rivera is calling Nima Kaur MD today with concern regarding appointment on 02/06 with [facility]. Patient asking who scheduled appointment because she did not. Please return call to patient. Patient has been identified by name and birthdate. Duration of symptoms: N/A Person calling: self Call patient at: on cell [phone] (home) [phone] (cell) Was an appointment scheduled: No Closing statement: Results or non-symptom based questions: Thank you for calling [facility], your call will be returned [...] Fully Assessed Reason for Visit: Patient Question [9467] Prescriptions as of 02/02/2023 - hydrOXYzine pamoate [...] Status:Closed by RIYA AGUILAR on 02/02/23 Normal [facility] Absolute lymphocyte countOrd ered By: Stephany Robbins on 12-25-2022 Lymphocytes Auto (Unsp spec) [#/Vol] 1.23 10*3/uL 0.83-4.51 [facility] Basophil percentageOrdered B y: Stephany Robbins on 12-25-2022 Basophil percentage 124 mg/dL 74-106 [facility] Basophil percentage 138 mmol/L 136-145 [facility] Basophil percentage 3.8 mmol/L 3.5-5.1 [facility] Basophil percentage 106 mmol/L 98-107 [facility] Basophils (Bld) [#/Vol] 4.6 10*3/uL 4.4-11.0 [facility] Basophils (Bld) [#/Vol] 2.7 10*3/uL 2.0-7.7 [facility] Basophils/100 WBC (Bld) 0.9 % 0-1 [facility] Basophils/100 WBC (Bld) 58.5 % 47-70 [facility] Basophils/100 WBC (Bld) 5.7 % 0-5 [facility] Chloride [Moles/Vol] 106 mmol/L 98-107 [facility] Eosinophils/100 WBC (Bld) 5.7 % 0-5 [facility] Glucose [Mass/Vol] 124 mg/dL 74-106 [facility] Comment on above: Fasting Glucose resu lt from 100 to 125 mg/dL suggests IMPAIRED HOMEOSTASIS per A.D.A. criteria. Neutrophils (Bld) [#/Vol] 2.7 10*3/uL 2.0-7.7 [facility] Neutrophils/100 WBC (Bld) 58.5 % 47-70 [facility] Potassium [Moles/Vol] 3.8 mmol/L 3.5-5.[address] [facility] Sodium [Moles/Vol] 138 mmol/L 136-145 [facility] WBC (Bld) [#/Vol] 4.6 10*3/uL 4.4-11.0 [facility] Blood erythrocytes count (nu mber/volume)Ordered By: Stephany Robbins on 12-25-2022 RBC (Bld) [#/Vol] 4.87 10*6/uL 4.2-5.4 [facility] Blood hemoglobin measurement (mass/volume)Ordered By: Stephany Robbins on 12-25-2022 Hemoglobin (Bld) [Mass/Vol] 13.4 g/dL 12.0-15.0 [facility] Blood lymphocytes/100 leukoc ytesOrdered By: Stephany Robbins on 12-25-2022 Lymphocytes/100 WBC (Bld) 26.7 % 19-41 [facility] Blood monocytes/100 leukocyt esOrdered By: Stephany Robbins on 12-25-2022 Monocytes/100 WBC (Bld) 7.8 % 0-10 [facility] Blood platelet mean volumeOr dered By: Stephany Robbins on 12-25-2022 Platelet mean volume (Bld) [Entitic vol] 10.8 fL 6.2-12.0 [facility] Determination of erythrocyte mean corpuscular volume (MCV)Ordered By: Stephany Robbins on 12-25-2022 MCV (RBC) [Entitic vol] 86.4 fL 81-99 [facility] Hematocrit Auto (Bld) [Volum e fraction]Ordered By: Stephany Robbins on 12-25-2022 Hematocrit (Bld) [Volume fraction] 42.1 % 37-47 [facility] Laboratory - Chemistry and C hemistry - challengeOrdered By: Stephany Robbins on 12-25-2022 CO2 [Moles/Vol] 26.0 mmol/L 21.0-32.0 [facility] Urea nitrogen/Creatinine [Mass ratio] 11.3 mg/mg 10-20 [facility] Laboratory - Hematology and Cell countsOrdered By: Stephany Robbins on 12-25-2022 Erythrocyte distribution width (RBC) [Entitic vol] 40.4 fL 35.1-43.9 [facility] Erythrocyte distribution width (RBC) [Ratio] 13.0 % 11.6-14.6 [facility] Immature granulocytes/100 WBC (Bld) 0.400 % 0.0-0.9 [facility] Comment on above: IG% - Immature Granu locytes (promyelocytes, myelocytes and metamyelocytes) > 1% indicates that a LEFT SHIFT is Present. MCH (RBC) [Entitic mass] 27.5 pg 27.0-32.0 [facility] Nucleated RBC/100 WBC (Bld) [Ratio] 0 % 0-5 [facility] MCHC Auto (RBC) [Mass/Vol]Or dered By: Stephany Robbins on 12-25-2022 MCHC (RBC) [Mass/Vol] 31.8 g/dL 32-[address] [facility] No Panel InformationOrdered By: Stephany Robbins on 12-25-2022 Estimated Creatinine Clearance Calc 103.53 ml/min [facility] Estimated GFR (MDRD) Amer 120 mL/min >60 [facility] Comment on above: GFR Calc Estimated GFR (MDRD) Non-Af Amer 100 mL/min >60 [facility] Comment on above: Non- GFR Calc Troponin I High Sensitivity 3 pg/mL 3.0-54.0 [facility] Comment on above: Please Note: New Chantal t Units and Gender Specific Reference Ranges. For more information see Policy Stat Procedure [place] High Sensitivity Troponin (TNIH) and attachments. 27.5 pg 27.0-32.0 [facility] 13.0 % 11.6-14.6 [facility] 40.4 fl 35.1-43.9 [facility] 0.400 % 0.0-0.9 [facility] 0 % 0-5 [facility] 100 mL/min >60 [facility] 120 mL/min >60 [facility] 103.53 ml/min [facility] 11.3 RATIO 10-20 [facility] 3 pg/mL 3.0-54.0 [facility] 26.0 mmol/L 21.0-32.0 [facility] Platelets bldOrdered By: Tegan Robbins on 12-25-2022 Platelets (Bld) [#/Vol] 158 10*3/uL 150-450 [facility] Serum or plasma calcium mg urement (mass/volume)Ordered By: Stephany Robbins on 12-25-2022 Calcium [Mass/Vol] 8.6 mg/dL 8.5-10.1 [facility] Serum or plasma creatinine m easurement (mass/volume)Ordered By: Stephany Robbins on 12-25-2022 Creatinine [Mass/Vol] 0.71 mg/dL 0.55-1.[address] [facility] Comment on above: The validity of the calculated GFR & GFRAA in patients over 70 years has not been determined. Clinical correlation is essential. Serum or plasma urea nitroge n measurement (mass/volume)Ordered By: Stephany Robbins on 12-25-2022 Urea nitrogen [Mass/Vol] 8 mg/dL 7-18 [facility] Thin prep Papanicolaou smear with manual screeningOrdered By: Stephany Robbins on 12-25-2022 Thin prep Papanicolaou smear with manual screening 6 5-15 [facility] Chlamydia trachomatis rRNA d etection by probe and target amplification methodOrdered By: Hanh Balderas on 12-15-2022 C. trachomatis rRNA JONE+probe Ql (Unsp spec) Negative Negative [facility] Gram stain for investigation of transfusion reactionOrdered By: Hanh Balderas on 12-15-2022 Microscopic observation Gram stain Nom (Unsp spec) [facility] Microscopic observation Gram stain Nom (Unsp spec) [facility] Laboratory - Microbiology an d Antimicrobial susceptibilityOrdered By: Hanh Balderas on 12-15-2022 N. gonorrhoeae DNA JONE+probe Ql (Unsp spec) Negative Negative [facility] Comment on above: Performed at: =[address] [id number] Director: Love Vance MD, Phone: [phone] No Panel InformationOrdered By: Hanh Balderas on 12-15-2022 Negative Negative [facility] No Panel Informationon 12-15 [facility] Trichomonas (Rapid) Negative [facility] Negative [facility] Thin prep Papanicolaou smear with manual screeningOrdered By: Hanh Balderas on 12-15-2022 Thin prep Papanicolaou smear with manual screening [facility] Thin prep Papanicolaou smear with manual screening [facility] Absolute lymphocyte countOrd ered By: Jesi Padilla on 11-19-2022 Lymphocytes Auto (Unsp spec) [#/Vol] 1.83 10*3/uL 0.83-4.51 [facility] Basophil percentageOrdered B y: Jesi Padilla on 11-19-2022 Basophil percentage 95 mg/dL 74-106 [facility] Basophil percentage 7.4 g/dL 6.4-8.2 [facility] [facility] 0.40 mg/dL 0.20-1.00 [facility] Basophil percentage 138 mmol/L 136-145 [facility] Basophil percentage 3.5 mmol/L 3.5-5.1 [facility] Basophil percentage 105 mmol/L 98-107 [facility] Basophils (Bld) [#/Vol] 6.0 10*3/uL 4.4-11.0 [facility] Basophils (Bld) [#/Vol] 3.3 10*3/uL 2.0-7.7 [facility] Basophils/100 WBC (Bld) 55.7 % 47-70 [facility] Basophils/100 WBC (Bld) 4.7 % 0-5 [facility] Basophils/100 WBC (Bld) 0.5 % 0-1 [facility] Bilirubin [Mass/Vol] 0.40 mg/dL 0.20-1.00 [facility] Comment on above: For patients on eltr ombopag therapy, use of Dimension [place] TBIL is not recommended. Chloride [Moles/Vol] 105 mmol/L 98-107 [facility] Eosinophils/100 WBC (Bld) 4.7 % 0-5 [facility] Glucose [Mass/Vol] 95 mg/dL 74-106 [facility] Neutrophils (Bld) [#/Vol] 3.3 10*3/uL 2.0-7.7 [facility] Neutrophils/100 WBC (Bld) 55.7 % 47-70 [facility] Potassium [Moles/Vol] 3.5 mmol/L 3.5-5.[address] [facility] Protein [Mass/Vol] 7.4 g/dL 6.4-8.2 [facility] Sodium [Moles/Vol] 138 mmol/L 136-145 [facility] WBC (Bld) [#/Vol] 6.0 10*3/uL 4.4-11.0 [facility] Blood erythrocytes count (nu mber/volume)Ordered By: Jesi Padilla on 11-19-2022 RBC (Bld) [#/Vol] 4.91 10*6/uL 4.2-5.4 [facility] Blood hemoglobin measurement (mass/volume)Ordered By: Jesi Padilla on 11-19-2022 Hemoglobin (Bld) [Mass/Vol] 13.5 g/dL 12.0-15.0 [facility] Blood lymphocytes/100 leukoc ytesOrdered By: Jesi Padilla on 11-19-2022 Lymphocytes/100 WBC (Bld) 30.7 % 19-41 [facility] Blood monocytes/100 leukocyt esOrdered By: Jesi Padilla on 11-19-2022 Monocytes/100 WBC (Bld) 8.1 % 0-10 [facility] Blood platelet mean volumeOr dered By: Jesi Padilla on 11-19-2022 Platelet mean volume (Bld) [Entitic vol] 10.7 fL 6.2-12.0 [facility] Determination of erythrocyte mean corpuscular volume (MCV)Ordered By: Jesi Padilla on 11-19-2022 MCV (RBC) [Entitic vol] 85.3 fL 81-99 [facility] Hematocrit Auto (Bld) [Volum e fraction]Ordered By: Jesi Padilla on 11-19-2022 Hematocrit (Bld) [Volume fraction] 41.9 % 37-47 [facility] Laboratory - Chemistry and C hemistry - challengeOrdered By: Jesi Padilla on 11-19-2022 ALP [Catalytic activity/Vol] 74 U/L 45-117 [facility] ALT [Catalytic activity/Vol] 25 U/L 13-56 [facility] CO2 [Moles/Vol] 30.0 mmol/L 21.0-32.0 [facility] Globulin (S) [Mass/Vol] 3.7 g/dL 2.2-4.2 [facility] Lipase [Catalytic activity/Vol] 30 U/L 13-75 [facility] Comment on above: Please note:LIPASE r evised reference range effective 22. New Lipase methodology. Expected to produce lower values than the previous assay method. NEW Reference Range: 13 - 75 U/L Urea nitrogen/Creatinine [Mass ratio] 13.7 mg/mg 10-20 [facility] Laboratory - Hematology and Cell countsOrdered By: Jesi Padilla on 11-19-2022 Erythrocyte distribution width (RBC) [Entitic vol] 39.4 fL 35.1-43.9 [facility] Erythrocyte distribution width (RBC) [Ratio] 12.7 % 11.6-14.6 [facility] Immature granulocytes/100 WBC (Bld) 0.300 % 0.0-0.9 [facility] Comment on above: IG% - Immature Granu locytes (promyelocytes, myelocytes and metamyelocytes) > 1% indicates that a LEFT SHIFT is Present. MCH (RBC) [Entitic mass] 27.5 pg 27.0-32.0 [facility] Nucleated RBC/100 WBC (Bld) [Ratio] 0 % 0-5 [facility] MCHC Auto (RBC) [Mass/Vol]Or dered By: Jesi Padilla on 11-19-2022 MCHC (RBC) [Mass/Vol] 32.2 g/dL 32-[address] [facility] No Panel InformationOrdered By: Jesi Padilla on 11-19-2022 Estimated Creatinine Clearance Calc 91.88 ml/min [facility] Estimated GFR (MDRD) Amer 105 mL/min >60 [facility] Comment on above: GFR Calc Estimated GFR (MDRD) Non-Af Amer 86 mL/min >60 [facility] Comment on above: Non- GFR Calc 27.5 pg 27.0-32.0 [facility] 12.7 % 11.6-14.6 [facility] 39.4 fl 35.1-43.9 [facility] 0.300 % 0.0-0.9 [facility] 0 % 0-5 [facility] 86 mL/min >60 [facility] 105 mL/min >60 [facility] 91.88 ml/min [facility] 13.7 RATIO 10-20 [facility] 3.7 g/dL 2.2-4.2 [facility] 30 U/L 13-75 [facility] 74 U/L 45-117 [facility] 25 U/L 13-56 [facility] 30.0 mmol/L 21.0-32.0 [facility] Platelets bldOrdered By: Emily Padilla on 11-19-2022 Platelets (Bld) [#/Vol] 194 10*3/uL 150-450 [facility] Serum or plasma albumin mg urement (mass/volume)Ordered By: Jesi Padilla on 11-19-2022 Albumin [Mass/Vol] 3.7 g/dL 3.2-5.0 [facility] Serum or plasma albumin/glob ulin mass ratioOrdered By: Jesi Padilla on 11-19-2022 Albumin/Globulin [Mass ratio] 1.0 {ratio} 0.9-2.4 [facility] Serum or plasma calcium mg urement (mass/volume)Ordered By: Jesi Padilla on 11-19-2022 Calcium [Mass/Vol] 9.2 mg/dL 8.5-10.1 [facility] Serum or plasma creatinine m easurement (mass/volume)Ordered By: Jesi Padilla on 11-19-2022 Creatinine [Mass/Vol] 0.80 mg/dL 0.55-1.[address] [facility] Comment on above: The validity of the calculated GFR & GFRAA in patients over 70 years has not been determined. Clinical correlation is essential. Serum or plasma urea nitroge n measurement (mass/volume)Ordered By: Jesi Padilla on 11-19-2022 Urea nitrogen [Mass/Vol] 11 mg/dL 7-18 [facility] Thin prep Papanicolaou smear with manual screeningOrdered By: Jesi Padilla on 11-19-2022 Thin prep Papanicolaou smear with manual screening 15 U/L 15-37 [facility] Thin prep Papanicolaou smear with manual screening 3 5-15 [facility] CNOVSPon 11-16-2022 CNOVSP Visit (SP) Office (AGGYNONPOB) LANA RIVERA ([id number]) 1985 F Date Time Provider Department 11/16/22 [...] years as her is s/p vasectomy. Her Repair Service Clerk is Dr. Garcia and Dr. Moore The [...] bleeding, vaginal discharge and vaginal pain. 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 Normal [facility] Trung 11-10-2022 [facility] Telephone (NOMAN Fernandes) LANA RIVERA ([id number]) 1985 F Date Time Provider Department 11/10/22 [...] Encounter Status:Closed by AZRA WEAVER on 11/10/22 [facility] Absolute lymphocyte countOrd ered By: Dr. Luis on 11-08-2022 Lymphocytes Auto (Unsp spec) [#/Vol] 1.54 10*3/uL 0.83-4.51 [facility] Basophil percentageOrdered B y: Dr. Luis on 11-08-2022 Basophil percentage 0 SEEN /hpf 0-5 [facility] Basophil percentage 84 mg/dL 74-106 [facility] Basophil percentage 7.6 g/dL 6.4-8.2 [facility] Basophil percentage 0.20 mg/dL 0.20-1.00 [facility] Basophil percentage 137 mmol/L 136-145 [facility] Basophil percentage 3.2 mmol/L 3.5-5.1 [facility] Basophil percentage 105 mmol/L 98-107 [facility] Basophils (Bld) [#/Vol] 5.7 10*3/uL 4.4-11.0 [facility] Basophils (Bld) [#/Vol] 3.2 10*3/uL 2.0-7.7 [facility] Basophils/100 WBC (Bld) 56.0 % 47-70 [facility] Basophils/100 WBC (Bld) 4.6 % 0-5 [facility] Basophils/100 WBC (Bld) 0.7 % 0-1 [facility] Basophil percentageOrdered B y: Dimple Luis on 11-08-2022 Bilirubin [Mass/Vol] 0.20 mg/dL 0.20-1.00 [facility] Comment on above: For patients on eltr ombopag therapy, use of Dimension [place] TBIL is not recommended. Chloride [Moles/Vol] 105 mmol/L 98-107 [facility] Eosinophils/100 WBC (Bld) 4.6 % 0-5 [facility] Glucose [Mass/Vol] 84 mg/dL 74-106 [facility] Neutrophils (Bld) [#/Vol] 3.2 10*3/uL 2.0-7.7 [facility] Neutrophils/100 WBC (Bld) 56.0 % 47-70 [facility] Potassium [Moles/Vol] 3.2 mmol/L 3.5-5.[address] [facility] Protein [Mass/Vol] 7.6 g/dL 6.4-8.2 [facility] Sodium [Moles/Vol] 137 mmol/L 136-145 [facility] WBC (Bld) [#/Vol] 5.7 10*3/uL 4.4-11.0 [facility] Bilirubin Test strip Ql (U)O rdered By: Dr. Luis on 11-08-2022 Bilirubin Ql (U) Negative Negative [facility] Blood erythrocytes count (nu mber/volume)Ordered By: Dr. Luis on 11-08-2022 RBC (Bld) [#/Vol] 5.01 10*6/uL 4.2-5.4 [facility] Blood hemoglobin measurement (mass/volume)Ordered By: Dr. Luis on 11-08-2022 Hemoglobin (Bld) [Mass/Vol] 13.7 g/dL 12.0-15.0 [facility] Blood lymphocytes/100 leukoc ytesOrdered By: Dr. Luis on 11-08-2022 Lymphocytes/100 WBC (Bld) 27.2 % 19-41 [facility] Blood monocytes/100 leukocyt esOrdered By: Dr. Luis on 11-08-2022 Monocytes/100 WBC (Bld) 11.3 % 0-10 [facility] Blood platelet mean volumeOr dered By: Dr. Luis on 11-08-2022 Platelet mean volume (Bld) [Entitic vol] 11.3 fL 6.2-12.0 [facility] Determination of erythrocyte mean corpuscular volume (MCV)Ordered By: Dr. Luis on 11-08-2022 MCV (RBC) [Entitic vol] 85.2 fL 81-99 [facility] Direct bilirubinOrdered By: Dr. Luis on 11-08-2022 Bilirubin.direct [Mass/Vol] 0.07 mg/dL 0.00-0.30 [facility] Hematocrit Auto (Bld) [Volum e fraction]Ordered By: Dr. Luis on 11-08-2022 Hematocrit (Bld) [Volume fraction] 42.7 % 37-47 [facility] Ketones Test strip Ql (U)Ord ered By: Dr. Luis on 11-08-2022 Ketones Ql (U) Negative Negative [facility] Laboratory - Chemistry and C hemistry - challengeOrdered By: Dimple Luis on 11-08-2022 ALP [Catalytic activity/Vol] 72 U/L 45-117 [facility] ALT [Catalytic activity/Vol] 20 U/L 13-56 [facility] CO2 [Moles/Vol] 27.0 mmol/L 21.0-32.0 [facility] Globulin (S) [Mass/Vol] 3.8 g/dL 2.2-4.2 [facility] Lipase [Catalytic activity/Vol] 46 U/L 13-75 [facility] Comment on above: Please note:LIPASE r evised reference range effective 22. New Lipase methodology. Expected to produce lower values than the previous assay method. NEW Reference Range: 13 - 75 U/L Urea nitrogen/Creatinine [Mass ratio] 14.6 mg/mg 10-20 [facility] Laboratory - Hematology and Cell countsOrdered By: Dimple Luis on 11-08-2022 Erythrocyte distribution width (RBC) [Entitic vol] 39.6 fL 35.1-43.9 [facility] Erythrocyte distribution width (RBC) [Ratio] 12.9 % 11.6-14.6 [facility] Immature granulocytes/100 WBC (Bld) 0.200 % 0.0-0.9 [facility] Comment on above: IG% - Immature Granu locytes (promyelocytes, myelocytes and metamyelocytes) > 1% indicates that a LEFT SHIFT is Present. MCH (RBC) [Entitic mass] 27.3 pg 27.0-32.0 [facility] Nucleated RBC/100 WBC (Bld) [Ratio] 0 % 0-5 [facility] MCHC Auto (RBC) [Mass/Vol]Or dered By: Dr. Luis on 11-08-2022 MCHC (RBC) [Mass/Vol] 32.1 g/dL 32-[address] [facility] Mucus LM Ql (Urine sed)Order ed By: Dr. Luis on 11-08-2022 Mucus Ql (Urine sed) 0 SEEN /hpf [facility] Nitrite Test strip Ql (U)Ord ered By: Dr. Luis on 11-08-2022 Nitrite Ql (U) Negative Negative [facility] No Panel InformationOrdered By: Dimple Luis on 11-08-2022 Estimated Creatinine Clearance Calc 98.01 ml/min [facility] Estimated GFR (MDRD) Amer 112 mL/min >60 [facility] Comment on above: GFR Calc Estimated GFR (MDRD) Non-Af Amer 93 mL/min >60 [facility] Comment on above: Non- GFR Calc No Panel InformationOrdered By: Dr. Luis on 11-08-2022 27.3 pg 27.0-32.0 [facility] 12.9 % 11.6-14.6 [facility] 39.6 fl 35.1-43.9 [facility] 0.200 % 0.0-0.9 [facility] 0 % 0-5 [facility] 93 mL/min >60 [facility] 112 mL/min >60 [facility] 98.01 ml/min [facility] 14.6 RATIO 10-20 [facility] 3.8 g/dL 2.2-4.2 [facility] 46 U/L 13-75 [facility] 72 U/L 45-117 [facility] 20 U/L 13-56 [facility] 27.0 mmol/L 21.0-32.0 [facility] Platelets bldOrdered By: Dr. Luis on 11-08-2022 Platelets (Bld) [#/Vol] 189 10*3/uL 150-450 [facility] Protein Test strip Ql (U)Ord ered By: Dr. Luis on 11-08-2022 Protein Ql (U) Negative Negative [facility] Serum or plasma albumin mg urement (mass/volume)Ordered By: Dr. Luis on 11-08-2022 Albumin [Mass/Vol] 3.8 g/dL 3.2-5.0 [facility] Serum or plasma calcium mg urement (mass/volume)Ordered By: Dr. Luis on 11-08-2022 Calcium [Mass/Vol] 9.3 mg/dL 8.5-10.1 [facility] Serum or plasma creatinine m easurement (mass/volume)Ordered By: Dr. Luis on 11-08-2022 Creatinine [Mass/Vol] 0.75 mg/dL 0.55-1.[address] [facility] Comment on above: The validity of the calculated GFR & GFRAA in patients over 70 years has not been determined. Clinical correlation is essential. Serum or plasma urea nitroge n measurement (mass/volume)Ordered By: Dr. Luis on 11-08-2022 Urea nitrogen [Mass/Vol] 11 mg/dL 7-18 [facility] Squamous epithelial cells de tection in urine sediment by light microscopyOrdered By: Dr. Luis on 11-08-2022 Epithelial cells.squamous LM Ql (Urine sed) 0-5 SEEN /hpf 5-10 [facility] Thin prep Papanicolaou smear with manual screeningOrdered By: Dr. Luis on 11-08-2022 Thin prep Papanicolaou smear with manual screening 10 U/L 15-37 [facility] Thin prep Papanicolaou smear with manual screening 5 5-15 [facility] Urine blood detectionOrdered By: Dr. Luis on 11-08-2022 RBC Ql (U) Negative Negative [facility] RBC Ql (U) 0 SEEN /hpf 0-5 [facility] Urine clarityOrdered By: Dr. Luis on 11-08-2022 Clarity (U) Clear Clear [facility] Urine color determinationOrd ered By: Dr. Luis on 11-08-2022 Color (U) Yellow Yellow [facility] Urine glucose detectionOrder ed By: Dr. Luis on 11-08-2022 Glucose Ql (U) Normal mg/dl Normal [facility] Urine leukocyte esterase det ection by dipstickOrdered By: Dr. Luis on 11-08-2022 Leukocyte esterase Test strip Ql (U) Negative Negative [facility] Urine pHOrdered By: Dr. John apodaca on 11-08-2022 pH (U) 6.5 [pH] 5.0 - 8.0 [facility] Urine sediment bacteria coun t by microscopy (number/high power field)Ordered By: Dr. Luis on 11-08-2022 Bacteria LM.HPF (Urine sed) [#/Area] RARE /hpf None Seen [facility] Urine specific gravity measu rementOrdered By: Dr. Luis on 11-08-2022 Specific gravity (U) [Rel density] 1.015 1.002-1.030 [facility] Urobilinogen Auto test strip Ql (U)Ordered By: Dr. Luis on 11-08-2022 Urobilinogen Ql (U) Normal mg/dl Normal [facility] .Auto Diffon 10-11-2022 Basophil, Absolute 0.0 10 3/mcL Normal 0.0-0.2 [facility] ([place]) Comment on above: Performed By: #### A DIFF, CMP, MDW, LIP, CBC, ANEU, GFR #### [address] [address] Basophils/100 WBC (Bld) 0.9 % Normal 0.0-2.5 A [facility] ([place]) Comment on above: Performed By: #### A DIFF, CMP, MDW, LIP, CBC, ANEU, GFR #### [address] [address] Eosinophil, Absolute 0.3 10 3/mcL Normal 0.0-0.4 [facility] ([place]) Comment on above: Performed By: #### A DIFF, CMP, MDW, LIP, CBC, ANEU, GFR #### [address] [address] Eosinophils/100 WBC (Bld) 5.3 % Normal 0.0-7.0 [facility] ([place]) Comment on above: Performed By: #### A DIFF, CMP, MDW, LIP, CBC, ANEU, GFR #### [address] [address] Lymphocyte, Absolute 1.7 10 3/mcL Normal 0.8-3.9 [facility] ([place]) Comment on above: Performed By: #### A DIFF, CMP, MDW, LIP, CBC, ANEU, GFR #### [address] [address] Lymphocytes/100 WBC (Bld) 33.5 % Normal 10.0-50.0 [facility] ([place]) Comment on above: Performed By: #### A DIFF, CMP, MDW, LIP, CBC, ANEU, GFR #### [address] [address] Monocyte, Absolute 0.5 10 3/mcL Normal 0.2-1.0 [facility] ([place]) Comment on above: Performed By: #### A DIFF, CMP, MDW, LIP, CBC, ANEU, GFR #### [address] [address] Monocytes/100 WBC (Bld) 10.0 % Normal 1.7-13.0 A [facility] ([place]) Comment on above: Performed By: #### A DIFF, CMP, MDW, LIP, CBC, ANEU, GFR #### [address] [address] Neutrophils/100 WBC (Bld) 50.3 % Normal 37.0-80.0 [facility] ([place] Comment on above: Performed By: #### A DIFF, CMP, MDW, LIP, CBC, ANEU, GFR #### [address] [address] .GFRon 10-11-2022 GFR 102 ml/min/1.73sqm Normal [facility] ([place] Comment on above: Result Comment: GFR Population [...] CMP, MDW, LIP, CBC, ANEU, GFR #### [address] [address] GFR Non- 84 ml/min/1.73sqm Normal [facility] ([place] Comment on above: Result Comment: GFR Population [...] CMP, MDW, LIP, CBC, ANEU, GFR #### [place] [id number] .MDWon 10-11-2022 Monocyte Distribution Width 17.66 Normal 0.00-20.00 [facility] ([place]) Comment on above: Result Comment: For ED adult patients suspected of sepsis, MDW<=20.0 does not rule out sepsis or risk of sepsis Performed By: #### A DIFF, CMP, MDW, LIP, CBC, ANEU, GFR #### [place] [address] .NEUABSon 10-11-2022 Neutrophil, Absolute 2.6 10 3/mcL Low 2.9-6.2 [facility] ([place]) Comment on above: Performed By: #### A DIFF, CMP, MDW, LIP, CBC, ANEU, GFR #### [place] [address] CBCon 10-11-2022 Erythrocyte distribution width (RBC) [Ratio] 13.5 % Normal 11.5-14.5 [facility] ([place] Comment on above: Performed By: #### A DIFF, CMP, MDW, LIP, CBC, ANEU, GFR #### [place] [address] Hematocrit (Bld) [Volume fraction] 40.8 % Normal 37.0-47.0 [facility] ([place] Comment on above: Performed By: #### A DIFF, CMP, MDW, LIP, CBC, ANEU, GFR #### [place] [address] Hgb 13.7 G/dL Normal 12.0-16.0 [facility] ([place] Comment on above: Performed By: #### A DIFF, CMP, MDW, LIP, CBC, ANEU, GFR #### [place] [address] MCH (RBC) [Entitic mass] 28.0 pg Normal 27.0-31.2 [facility] ([place] Comment on above: Performed By: #### A DIFF, CMP, MDW, LIP, CBC, ANEU, GFR #### [address] [address] MCHC 33.6 G/dL Normal 33.0-37.0 [facility] ([place] Comment on above: Performed By: #### A DIFF, CMP, MDW, LIP, CBC, ANEU, GFR #### [address] [address] MCV (RBC) [Entitic vol] 83.2 fL Normal 80.0-94.0 A [facility] ([place] Comment on above: Performed By: #### A DIFF, CMP, MDW, LIP, CBC, ANEU, GFR #### [address] [address] Platelet 171 10 3/mcL Normal 130-400 [facility] ([place] Comment on above: Performed By: #### A DIFF, CMP, MDW, LIP, CBC, ANEU, GFR #### [address] [address] Platelet mean volume (Bld) [Entitic vol] 9.2 fL Normal 7.4-10.4 [facility] ([place] Comment on above: Performed By: #### A DIFF, CMP, MDW, LIP, CBC, ANEU, GFR #### [place] [address] RBC 4.91 10 6/mcL Normal 4.20-5.40 [facility] ([place] Comment on above: Performed By: #### A DIFF, CMP, MDW, LIP, CBC, ANEU, GFR #### [place] [address] WBC 5.2 10 3/mcL Normal 4.6-10.8 [facility] ([place] Comment on above: Performed By: #### A DIFF, CMP, MDW, LIP, CBC, ANEU, GFR #### [address] [address] CMPon 10-11-2022 Albumin Level 3.9 G/dL Normal 3.5-5.0 [facility] ([place] Comment on above: Performed By: #### A DIFF, CMP, MDW, LIP, CBC, ANEU, GFR #### [address] [address] Albumin/Globulin [Mass ratio] 1.3 {ratio} Normal 1.1-2.5 [facility] ([place] Comment on above: Performed By: #### A DIFF, CMP, MDW, LIP, CBC, ANEU, GFR #### [address] [address] ALP [Catalytic activity/Vol] 78 U/L Normal 40-135 [facility] ([place] Comment on above: Performed By: #### A DIFF, CMP, MDW, LIP, CBC, ANEU, GFR #### [place] [id number] ALT [Catalytic activity/Vol] 17 U/L Normal 14-59 [facility] ([place] Comment on above: Performed By: #### A DIFF, CMP, MDW, LIP, CBC, ANEU, GFR #### [place] [id number] AST [Catalytic activity/Vol] 11 U/L Normal 10-40 [facility] ([place] Comment on above: Performed By: #### A DIFF, CMP, MDW, LIP, CBC, ANEU, GFR #### [address] [address] Bili Total 0.2 mg/dL Normal 0.2-1.0 [facility] ([place] Comment on above: Result Comment: Use of this assay is not recommended for patients undergoing treatment with eltrombopag due to the potential for falsely elevated results. Performed By: #### A DIFF, CMP, MDW, LIP, CBC, ANEU, GFR #### [place] [phone] BUN/Creatinine Ratio 12 ratio Normal 7-27 [facility] ([place]) Comment on above: Performed By: #### A DIFF, CMP, MDW, LIP, CBC, ANEU, GFR #### [address] [address] Calcium [Mass/Vol] 8.7 mg/dL Normal 8.4-10.2 [facility] ([place]) Comment on above: Performed By: #### A DIFF, CMP, MDW, LIP, CBC, ANEU, GFR #### [place] [address] Chloride [Moles/Vol] 104 mmol/L Normal 98-107 [facility] ([place]) Comment on above: Performed By: #### A DIFF, CMP, MDW, LIP, CBC, ANEU, GFR #### [place] [address] CO2 [Moles/Vol] 28 mmol/L Normal 22-29 [facility] ([place]) Comment on above: Performed By: #### A DIFF, CMP, MDW, LIP, CBC, ANEU, GFR #### [place] [phone] Creatinine [Mass/Vol] 0.78 mg/dL Normal 0.55-1.02 [facility] ([place]) Comment on above: Performed By: #### A DIFF, CMP, MDW, LIP, CBC, ANEU, GFR #### [address] [address] Electrolyte Balance 8.0 mEq/L Normal 4.0-15.0 [facility] ([place]) Comment on above: Performed By: #### A DIFF, CMP, MDW, LIP, CBC, ANEU, GFR #### [address] [address] Globulin 3.0 G/dL Normal [facility] ([place]) Comment on above: Performed By: #### A DIFF, CMP, MDW, LIP, CBC, ANEU, GFR #### [address] [address] Glucose [Mass/Vol] 106 mg/dL High 70-105 [facility] ([place]) Comment on above: Performed By: #### A DIFF, CMP, MDW, LIP, CBC, ANEU, GFR #### [address] [address] Potassium [Moles/Vol] 3.5 mmol/L Normal 3.5-5.1 [facility] ([place]) Comment on above: Performed By: #### A DIFF, CMP, MDW, LIP, CBC, ANEU, GFR #### [address] [address] Sodium [Moles/Vol] 140 mmol/L Normal 136-145 [facility] ([place]) Comment on above: Performed By: #### A DIFF, CMP, MDW, LIP, CBC, ANEU, GFR #### [address] [address] Total Protein 6.9 G/dL Normal 6.4-8.2 [facility] ([place]) Comment on above: Performed By: #### A DIFF, CMP, MDW, LIP, CBC, ANEU, GFR #### [address] [address] Urea nitrogen [Mass/Vol] 9 mg/dL Normal 7-18 [facility] ([place]) Comment on above: Performed By: #### A DIFF, CMP, MDW, LIP, CBC, ANEU, GFR #### [address] [address] [address] ABD/PELVIS W/ IV CONTRAST ONLYon 10-11-2022 [...] 9:56:00 PM Ordering Provider: BALDO FENG Normal [facility] ([place]) LIPon 10-11-2022 Lipase Level 42 U/L Normal 16-77 [facility] ([place] Comment on above: Performed By: #### A DIFF, CMP, MDW, LIP, CBC, ANEU, GFR #### [address] [address] UAon 10-11-2022 Color (U) Yellow Normal [facility] ([place] Comment on above: Performed By: #### U A #### [address] [address] Glucose (U) [Mass/Vol] 100 mg/dL Abnormal Negative [facility] ([place]) Comment on above: Performed By: #### U A #### [address] [address] Ketones Ql (U) Negative Normal Negative [facility] ([place]) Comment on above: Performed By: #### U A #### [address] [address] UA Appear Clear Normal Clear [facility] ([place]) Comment on above: Performed By: #### U A #### [address] [address] UA Blood Negative Normal Negative [facility] ([place]) Comment on above: Performed By: #### U A #### [place] [address] [address] UA Leuk Est Negative Normal Negative [facility] ([place]) Comment on above: Performed By: #### U A #### [address] [address] UA Nitrite Negative Normal Negative [facility] ([place]) Comment on above: Performed By: #### U A #### [place] [address] UA pH 7.0 Normal 5.0 - 8.0 [facility] ([place]) Comment on above: Performed By: #### U A #### [place] [address] UA Protein Negative Normal Negative [facility] ([place]) Comment on above: Performed By: #### U A #### [place] [address] UA Spec Grav 1.025 Normal 1.015-1.025 [facility] ([place]) Comment on above: Performed By: #### U A #### [place] [address] UA Specimen Type Clean Catch Normal [facility] ([place]) Comment on above: Performed By: #### U A #### [address] [address] UA Urobilinogen 0.2 E.U./dL Normal 0.2-1.0 [facility] ([place]) Comment on above: Performed By: #### U A #### [place] [address] Urobilinogen (U) [Mass/Vol] Negative Normal Negative [facility] ([place]) Comment on above: Performed By: #### U A #### [place] [address] Basophil percentageOrdered B y: Dr. Luis on 08-26-2022 Basophil percentage 104 mg/dL 74-106 [facility] Basophil percentage 139 mmol/L 136-145 [facility] Basophil percentage 3.7 mmol/L 3.5-5.1 [facility] Basophil percentage 106 mmol/L 98-107 [facility] Basophil percentageOrdered B y: Dimple Luis on 08-26-2022 Chloride [Moles/Vol] 106 mmol/L 98-107 [facility] Glucose [Mass/Vol] 104 mg/dL 74-106 [facility] Comment on above: Fasting Glucose resu lt from 100 to 125 mg/dL suggests IMPAIRED HOMEOSTASIS per A.D.A. criteria. Potassium [Moles/Vol] 3.7 mmol/L 3.5-5.[address] [facility] Sodium [Moles/Vol] 139 mmol/L 136-145 [facility] - Chemistry and C hemistry - challengeOrdered By: Dimple Luis on 08-26-2022 CO2 [Moles/Vol] 27.0 mmol/L 21.0-32.0 [facility] Urea nitrogen/Creatinine [Mass ratio] 9.2 mg/mg 10- [facility] No Panel InformationOrdered By: Dimple Luis on 08-26-2022 Estimated Creatinine Clearance Calc 96.72 ml/min [facility] Estimated GFR (MDRD) Amer 111 mL/min >60 [facility] Comment on above: GFR Calc Estimated GFR (MDRD) Non-Af Amer 92 mL/min >60 [facility] Comment on above: Non- GFR Calc No Panel InformationOrdered By: Dr. Luis on 08-26-2022 92 mL/min >60 [facility] 111 mL/min >60 [facility] 96.72 ml/min [facility] 9.2 RATIO 03-10 [facility] 27.0 mmol/L 21.0-32.0 [facility] Serum or plasma calcium mg urement (mass/volume)Ordered By: Dr. Luis on 08-26-2022 Calcium [Mass/Vol] 8.6 mg/dL 8.5-10.1 [facility] Serum or plasma creatinine m easurement (mass/volume)Ordered By: Dr. Luis on 08-26-2022 Creatinine [Mass/Vol] 0.76 mg/dL 0.55-1.[address] [facility] Comment on above: The validity of the calculated GFR & GFRAA in patients over 70 years has not been determined. Clinical correlation is essential. Serum or plasma urea nitroge n measurement (mass/volume)Ordered By: Dr. Luis on 08-26-2022 Urea nitrogen [Mass/Vol] 7 mg/dL 7-18 [facility] Thin prep Papanicolaou smear with manual screeningOrdered By: Dr. Luis on 08-26-2022 Thin prep Papanicolaou smear with manual screening 6 5-15 [facility] Absolute lymphocyte countOrd ered By: Dr. Luis on 08-17-2022 Lymphocytes Auto (Unsp spec) [#/Vol] 1.31 10*3/uL 0.83-4.51 [facility] Basophil percentageOrdered B y: Dr. Luis on 08-17-2022 Basophil percentage 128 mg/dL 74-106 [facility] Basophil percentage 138 mmol/L 136-145 [facility] Basophil percentage 3.9 mmol/L 3.5-5.1 [facility] Basophil percentage 106 mmol/L 98-107 [facility] Basophils (Bld) [#/Vol] 5.2 10*3/uL 4.4-11.0 [facility] Basophils (Bld) [#/Vol] 3.2 10*3/uL 2.0-7.7 [facility] Basophils/100 WBC (Bld) 62.1 % 47-70 [facility] Basophils/100 WBC (Bld) 4.0 % 0-5 [facility] Basophils/100 WBC (Bld) 0.4 % 0-1 [facility] Basophil percentageOrdered B y: Dimple Luis on 08-17-2022 Chloride [Moles/Vol] 106 mmol/L 98-107 [facility] Eosinophils/100 WBC (Bld) 4.0 % 0-5 [facility] Glucose [Mass/Vol] 128 mg/dL 74-106 [facility] Comment on above: Fasting Glucose resu lt greater than or equal to 126 mg/dL suggests DIABETES MELLITUS per A.D.A. criteria. Neutrophils (Bld) [#/Vol] 3.2 10*3/uL 2.0-7.7 [facility] Neutrophils/100 WBC (Bld) 62.1 % 47-70 [facility] Potassium [Moles/Vol] 3.9 mmol/L 3.5-5.[address] [facility] Sodium [Moles/Vol] 138 mmol/L 136-145 [facility] WBC (Bld) [#/Vol] 5.2 10*3/uL 4.4-11.0 [facility] Beta hCG serum qualOrdered B y: Dr. Luis on 08-17-2022 Beta HCG ( test) Ql Negative [facility] Blood erythrocytes count (nu mber/volume)Ordered By: Dr. Luis on 08-17-2022 RBC (Bld) [#/Vol] 5.00 10*6/uL 4.2-5.4 [facility] Blood hemoglobin measurement (mass/volume)Ordered By: Dr. Luis on 08-17-2022 Hemoglobin (Bld) [Mass/Vol] 13.8 g/dL 12.0-15.0 [facility] Blood lymphocytes/100 leukoc ytesOrdered By: Dr. Luis on 08-17-2022 Lymphocytes/100 WBC (Bld) 25.2 % 19-41 [facility] Blood monocytes/100 leukocyt esOrdered By: Dr. Luis on 08-17-2022 Monocytes/100 WBC (Bld) 7.9 % 0-10 [facility] Blood platelet mean volumeOr dered By: Dr. Luis on 08-17-2022 Platelet mean volume (Bld) [Entitic vol] 10.8 fL 6.2-12.0 [facility] Determination of erythrocyte mean corpuscular volume (MCV)Ordered By: Dr. Luis on 08-17-2022 MCV (RBC) [Entitic vol] 85.4 fL 81-99 [facility] Hematocrit Auto (Bld) [Volum e fraction]Ordered By: Dr. Luis on 08-17-2022 Hematocrit (Bld) [Volume fraction] 42.7 % 37-47 [facility] - Chemistry and C hemistry - challengeOrdered By: Dimple Luis on 08-17-2022 CO2 [Moles/Vol] 27.0 mmol/L 21.0-32.0 [facility] Urea nitrogen/Creatinine [Mass ratio] 13.4 mg/mg 10-20 [facility] Laboratory - Hematology and Cell countsOrdered By: Dimple Luis on 08-17-2022 Erythrocyte distribution width (RBC) [Entitic vol] 39.5 fL 35.1-43.9 [facility] Erythrocyte distribution width (RBC) [Ratio] 12.8 % 11.6-14.6 [facility] Immature granulocytes/100 WBC (Bld) 0.400 % 0.0-0.9 [facility] Comment on above: IG% - Immature Granu locytes (promyelocytes, myelocytes and metamyelocytes) > 1% indicates that a LEFT SHIFT is Present. MCH (RBC) [Entitic mass] 27.6 pg 27.0-32.0 [facility] Nucleated RBC/100 WBC (Bld) [Ratio] 0 % 0-5 [facility] MCHC Auto (RBC) [Mass/Vol]Or dered By: Dr. Luis on 08-17-2022 MCHC (RBC) [Mass/Vol] 32.3 g/dL 32-[address] [facility] No Panel InformationOrdered By: Dimple Luis on 08-17-2022 Estimated Creatinine Clearance Calc 109.71 ml/min [facility] Estimated GFR (MDRD) Amer 128 mL/min >60 [facility] Comment on above: GFR Calc Estimated GFR (MDRD) Non-Af Amer 106 mL/min >60 [facility] Comment on above: Non- GFR Calc Troponin I High Sensitivity 3 pg/mL 3.0-54.0 [facility] Comment on above: Please Note: New Chantal t Units and Gender Specific Reference Ranges. For more information see Policy Stat Procedure [place] High Sensitivity Troponin (TNIH) and attachments. No Panel InformationOrdered By: Dr. Luis on 08-17-2022 27.6 pg 27.0-32.0 [facility] 12.8 % 11.6-14.6 [facility] 39.5 fl 35.1-43.9 [facility] 0.400 % 0.0-0.9 [facility] 0 % 0-5 [facility] 106 mL/min >60 [facility] 128 mL/min >60 [facility] 109.71 ml/min [facility] 13.4 RATIO 10-20 [facility] 3 pg/mL 3.0-54.0 [facility] 27.0 mmol/L 21.0-32.0 [facility] Platelets bldOrdered By: Dr. Luis on 08-17-2022 Platelets (Bld) [#/Vol] 175 10*3/uL 150-450 [facility] Serum or plasma calcium mg urement (mass/volume)Ordered By: Dr. Luis on 08-17-2022 Calcium [Mass/Vol] 8.7 mg/dL 8.5-10.1 [facility] Serum or plasma creatinine m easurement (mass/volume)Ordered By: Dr. Luis on 08-17-2022 Creatinine [Mass/Vol] 0.67 mg/dL 0.55-1.[address] [facility] Comment on above: The validity of the calculated GFR & GFRAA in patients over 70 years has not been determined. Clinical correlation is essential. Serum or plasma urea nitroge n measurement (mass/volume)Ordered By: Dr. Luis on 08-17-2022 Urea nitrogen [Mass/Vol] 9 mg/dL 7-18 [facility] Thin prep Papanicolaou smear with manual screeningOrdered By: Dr. Luis on 08-17-2022 Thin prep Papanicolaou smear with manual screening 5 5-15 [facility] Absolute lymphocyte countOrd ered By: Royce Bangura on 07-17-2022 Lymphocytes Auto (Unsp spec) [#/Vol] 1.50 10*3/uL 0.83-4.51 [facility] Basophil percentageOrdered B y: Royce Bangura on 07-17-2022 Basophil percentage 123 mg/dL 74-106 [facility] Basophil percentage 6.8 g/dL 6.4-8.2 [facility] Basophil percentage 0.40 mg/dL 0.20-1.00 [facility] Basophil percentage 140 mmol/L 136-145 [facility] Basophil percentage 3.4 mmol/L 3.5-5.1 [facility] Basophil percentage 104 mmol/L 98-107 [facility] Basophils (Bld) [#/Vol] 4.1 10*3/uL 4.4-11.0 [facility] Basophils (Bld) [#/Vol] 2.1 10*3/uL 2.0-7.7 [facility] Basophils/100 WBC (Bld) 50.5 % 47-70 [facility] Basophils/100 WBC (Bld) 3.2 % 0-5 [facility] Basophils/100 WBC (Bld) 0.7 % 0-1 [facility] Blood erythrocytes count (nu mber/volume)Ordered By: Royce Bangura on 07-17-2022 RBC (Bld) [#/Vol] 4.75 10*6/uL 4.2-5.4 [facility] Blood hemoglobin measurement (mass/volume)Ordered By: Royce Bangura on 07-17-2022 Hemoglobin (Bld) [Mass/Vol] 13.1 g/dL 12.0-15.0 [facility] Blood lymphocytes/100 leukoc ytesOrdered By: Royce Bangura on 07-17-2022 Lymphocytes/100 WBC (Bld) 36.8 % 19-41 [facility] Blood monocytes/100 leukocyt esOrdered By: Royce Bangura on 07-17-2022 Monocytes/100 WBC (Bld) 8.6 % 0-10 [facility] Blood platelet mean volumeOr dered By: Royce Bangura on 07-17-2022 Platelet mean volume (Bld) [Entitic vol] 11.2 fL 6.2-12.0 [facility] Determination of erythrocyte mean corpuscular volume (MCV)Ordered By: Royce Bangura on 07-17-2022 MCV (RBC) [Entitic vol] 86.3 fL 81-99 [facility] Hematocrit Auto (Bld) [Volum e fraction]Ordered By: Royce Bangura on 07-17-2022 Hematocrit (Bld) [Volume fraction] 41.0 % 37-47 [facility] MCHC Auto (RBC) [Mass/Vol]Or dered By: Royce Bangura on 07-17-2022 MCHC (RBC) [Mass/Vol] 32.0 g/dL 32-[address] [facility] No Panel InformationOrdered By: Royce Bangura on 07-17-2022 27.6 pg 27.0-32.0 [facility] 13.9 % 11.6-14.6 [facility] 43.2 fl 35.1-43.9 [facility] 0.200 % 0.0-0.9 [facility] 0 % 0-5 [facility] 94 mL/min >60 [facility] 113 mL/min >60 [facility] 98.01 ml/min [facility] 9.3 RATIO 10-20 [facility] 3.2 g/dL 2.2-4.2 [facility] 120 U/L 73-393 [facility] < 3 pg/mL 3.0-54.0 [facility] 60 U/L 45-117 [facility] 24 U/L 13-56 [facility] 29.0 mmol/L 21.0-32.0 [facility] 1.37 uIU/mL 0.358-3.74 [facility] Platelets bldOrdered By: Lita Bangura on 07-17-2022 Platelets (Bld) [#/Vol] 160 10*3/uL 150-450 [facility] Serum or plasma albumin mg urement (mass/volume)Ordered By: Royce Bangura on 07-17-2022 Albumin [Mass/Vol] 3.6 g/dL 3.2-5.0 [facility] Serum or plasma albumin/glob ulin mass ratioOrdered By: Royce Bangura on 07-17-2022 Albumin/Globulin [Mass ratio] 1.1 {ratio} 0.9-2.4 [facility] Serum or plasma calcium mg urement (mass/volume)Ordered By: Royce Bangura on 07-17-2022 Calcium [Mass/Vol] 9.1 mg/dL 8.5-10.1 [facility] Serum or plasma creatinine m easurement (mass/volume)Ordered By: Royce Bangura on 07-17-2022 Creatinine [Mass/Vol] 0.75 mg/dL 0.55-1.[address] [facility] Serum or plasma urea nitroge n measurement (mass/volume)Ordered By: Royce Bangura on 07-17-2022 Urea nitrogen [Mass/Vol] 7 mg/dL 7-18 [facility] Thin prep Papanicolaou smear with manual screeningOrdered By: Royce Bangura on 07-17-2022 Thin prep Papanicolaou smear with manual screening 10 U/L 15-37 [facility] Thin prep Papanicolaou smear with manual screening 7 5-15 [facility] Absolute lymphocyte countOrd ered By: Rea Poon on 07-14-2022 Lymphocytes Auto (Unsp spec) [#/Vol] 1.51 10*3/uL 0.83-4.51 [facility] Atypical perinuclear antineu trophil cytoplasmic antibodies measurementOrdered By: Rea Poon on 07-14-2022 Neutrophil cytoplasmic Ab.perinuclear.atypical IF (S) [Titer] <1:20 titer Neg:<1:20 [facility] Basophil percentageOrdered B y: Rea Poon on 07-14-2022 Basophil percentage 118 mg/dL 74-106 [facility] Basophil percentage 7.2 g/dL 6.4-8.2 [facility] Basophil percentage 0.40 mg/dL 0.20-1.00 [facility] Basophil percentage 138 mmol/L 136-145 [facility] Basophil percentage 3.4 mmol/L 3.5-5.1 [facility] Basophil percentage 103 mmol/L 98-107 [facility] Basophil percentage < 0.2 AI 0.0-0.9 [facility] Basophils (Bld) [#/Vol] 6.2 10*3/uL 4.4-11.0 [facility] Basophils (Bld) [#/Vol] 3.9 10*3/uL 2.0-7.7 [facility] Basophils/100 WBC (Bld) 63.9 % 47-70 [facility] Basophils/100 WBC (Bld) 2.9 % 0-5 [facility] Basophils/100 WBC (Bld) 0.5 % 0-1 [facility] Blood erythrocytes count (nu mber/volume)Ordered By: Rea Poon on 07-14-2022 RBC (Bld) [#/Vol] 4.95 10*6/uL 4.2-5.4 [facility] Blood hemoglobin measurement (mass/volume)Ordered By: Rea Poon on 07-14-2022 Hemoglobin (Bld) [Mass/Vol] 13.7 g/dL 12.0-15.0 [facility] Blood lymphocytes/100 leukoc ytesOrdered By: Rea Poon on 07-14-2022 Lymphocytes/100 WBC (Bld) 24.5 % 19-41 [facility] Blood monocytes/100 leukocyt esOrdered By: Rea Poon on 07-14-2022 Monocytes/100 WBC (Bld) 7.9 % 0-10 [facility] Blood platelet mean volumeOr dered By: Rea Poon on 07-14-2022 Platelet mean volume (Bld) [Entitic vol] 11.2 fL 6.2-12.0 [facility] Determination of erythrocyte mean corpuscular volume (MCV)Ordered By: Rea Poon on 07-14-2022 MCV (RBC) [Entitic vol] 86.5 fL 81-99 [facility] Erythrocyte sedimentation ra teOrdered By: Rea Poon on 07-14-2022 ESR (Bld) [Velocity] 2 mm/h 0-30 [facility] Hematocrit Auto (Bld) [Volum e fraction]Ordered By: Rea Poon on 07-14-2022 Hematocrit (Bld) [Volume fraction] 42.8 % 37-47 [facility] MCHC Auto (RBC) [Mass/Vol]Or dered By: Rea Poon on 07-14-2022 MCHC (RBC) [Mass/Vol] 32.0 g/dL 32-[address] [facility] No Panel InformationOrdered By: Rea Poon on 07-14-2022 <2 U/mL 0-5 [facility] 27.7 pg 27.0-32.0 [facility] 14.3 % 11.6-14.6 [facility] 44.9 fl 35.1-43.9 [facility] 0.300 % 0.0-0.9 [facility] 0 % 0-5 [facility] 83 mL/min >60 [facility] 100 mL/min >60 [facility] 7.2 RATIO 10-20 [facility] 3.5 g/dL 2.2-4.2 [facility] 60 U/L 45-117 [facility] 25 U/L 13-56 [facility] 30.0 mmol/L 21.0-32.0 [facility] 0.3 AI 0.0-0.9 [facility] <0.2 AI 0.0-0.9 [facility] Negative Negative [facility] Platelets bldOrdered By: Eleanor Poon on 07-14-2022 Platelets (Bld) [#/Vol] 180 10*3/uL 150-450 [facility] Serum DNA double strand anti body assay (units/volume)Ordered By: Rea Poon on 07-14-2022 DNA double strand Ab Qn (S) [IU]/mL 0-9 [facility] Serum IgA measurement (units /volume)Ordered By: Rea Poon on 07-14-2022 IgA Qn (S) 19 mg/dL 87-352 [facility] Serum Alise-1 antibody assay (u nits/volume)Ordered By: Rea Poon on 07-14-2022 Alise-1 extractable nuclear Ab Qn (S) <0.2 AI 0.0-0.9 [facility] Serum Scl-70 extractable nuc lear antibody assay (units/volume)Ordered By: Rea Poon on 07-14-2022 SCL-70 extractable nuclear Ab Qn (S) <0.2 AI 0.0-0.9 [facility] Serum Freedman extractable nucl ear antibody detectionOrdered By: Rea Poon on 07-14-2022 Freedman extractable nuclear Ab Ql (S) <0.2 AI 0.0-0.9 [facility] Serum classic neutrophil cyt oplasmic antibody assay (units/volume)Ordered By: Rea Poon on 07-14-2022 Neutrophil cytoplasmic Ab.classic Qn (S) <1:20 titer Neg:<1:20 [facility] Serum or plasma C reactive p rotein measurement (mass/volume)Ordered By: Rea Poon on 07-14-2022 CRP [Mass/Vol] mg/L 0.0-3.0 [facility] Serum or plasma albumin mg urement (mass/volume)Ordered By: Rea Poon on 07-14-2022 Albumin [Mass/Vol] 3.7 g/dL 3.2-5.0 [facility] Serum or plasma albumin/glob ulin mass ratioOrdered By: Rea Poon on 07-14-2022 Albumin/Globulin [Mass ratio] 1.1 {ratio} 0.9-2.4 [facility] Serum or plasma calcium mg urement (mass/volume)Ordered By: Rea Poon on 07-14-2022 Calcium [Mass/Vol] 9.2 mg/dL 8.5-10.1 [facility] Serum or plasma creatinine m easurement (mass/volume)Ordered By: Rea Poon on 07-14-2022 Creatinine [Mass/Vol] 0.83 mg/dL 0.55-1.[address] [facility] Serum or plasma urea nitroge n measurement (mass/volume)Ordered By: Rea Poon on 07-14-2022 Urea nitrogen [Mass/Vol] 6 mg/dL 7-18 [facility] Serum perinuclear neutrophil cytoplasmic antibody titer by immunofluorescenceOrdered By: Rea Poon on 07-14-2022 Neutrophil cytoplasmic Ab.perinuclear IF (S) [Titer] <1:20 titer Neg:<1:20 [facility] Serum tissue transglutaminas e IgA antibody assay (units/volume)Ordered By: Rea Poon on 07-14-2022 tTG IgA Qn (S) <2 U/mL 0-3 [facility] Thin prep Papanicolaou smear with manual screeningOrdered By: Rea Poon on 07-14-2022 Thin prep Papanicolaou smear with manual screening 15 U/L 15-37 [facility] Thin prep Papanicolaou smear with manual screening 5 5-15 [facility] BASIC METABOLIC PANELon 06-22 Anion gap [Moles/Vol] 11 mmol/L Normal 10 - 20 [facility] Comment on above: Performed By: #### B MP #### [place] [address] Calcium [Mass/Vol] 9.1 mg/dL Normal 8.6 - 10.3 [facility] Comment on above: Performed By: #### B MP #### [address] [address] Chloride [Moles/Vol] 103 mmol/L Normal 98 - 107 [facility] Comment on above: Performed By: #### B MP #### [address] [address] Creatinine [Mass/Vol] 0.72 mg/dL Normal 0.50 - 1.05 [facility] Comment on above: Performed By: #### B MP #### [address] [address] eGFR FEMALE >90 Normal >90 [facility] Comment on above: Result Comment: CALC ULATIONS OF ESTIMATED GFR ARE PERFORMED USING THE 2020 CKD-EPI STUDY REFIT EQUATION WITHOUT THE RACE VARIABLE FOR THE IDMS-TRACEABLE CREATININE METHODS. https://jasn.asnjournals.org/content/early//ASN.2020 944190 Performed By: #### B MP #### [address] [address] Glucose [Mass/Vol] 137 mg/dL High 74 - 99 [facility] Comment on above: Performed By: #### B MP #### [address] [address] HCO3 (Bld) [Moles/Vol] 26 mmol/L Normal 21 - 32 [facility] Comment on above: Performed By: #### B MP #### [address] [address] Potassium [Moles/Vol] 3.9 mmol/L Normal 3.5 - 5.3 [facility] Comment on above: Performed By: #### B MP #### [address] [address] Sodium [Moles/Vol] 136 mmol/L Normal 136 - 145 [facility] Comment on above: Performed By: #### B MP #### [address] [address] Urea nitrogen [Mass/Vol] 13 mg/dL Normal 6 - 23 [facility] Comment on above: Performed By: #### B MP #### [address] [address] CBC AND DIFFERENTIALon 07-05 % AUTOMATED IMMATURE GRAN 0.5 % Normal 0.0 - 0.9 [facility] Comment on above: Result Comment: Lyssa ture Granulocyte Count (IG) includes promyelocytes, myelocytes and metamyelocytes but does not include bands. Percent differential counts (%) should be interpreted in the context of the absolute cell counts (cells/L). Performed By: #### C BCDF #### [address] [address] Basophils (Bld) [#/Vol] 0.02 10*3/uL Normal 0.00 - 0.1 0 [facility] Comment on above: Performed By: #### C BCDF #### [address] [address] Basophils/100 WBC (Bld) 0.3 % Normal 0.0 - 2.0 [facility] Comment on above: Performed By: #### C BCDF #### [address] [address] Eosinophils (Bld) [#/Vol] 0.01 10*3/uL Normal 0.00 - 0.70 [facility] Comment on above: Performed By: #### C BCDF #### [address] [address] Eosinophils/100 WBC (Bld) 0.2 % Normal 0.0 - 6.0 [facility] Comment on above: Performed By: #### C BCDF #### [address] [address] Erythrocyte distribution width (RBC) [Ratio] 14.4 % Normal 11.5 - 14.5 [facility] Comment on above: Performed By: #### C BCDF #### [address] [address] Hematocrit (Bld) [Volume fraction] 41.8 % Normal 36.0 - 46.0 [facility] Comment on above: Performed By: #### C BCDF #### [address] [address] Hemoglobin (Bld) [Mass/Vol] 13.6 g/dL Normal 12.0 - 16.0 [facility] Comment on above: Performed By: #### C BCDF #### [address] [address] Lymphocytes (Bld) [#/Vol] 0.91 10*3/uL Low 1.20 - 4.80 [facility] Comment on above: Performed By: #### C BCDF #### [address] [address] Lymphocytes/100 WBC (Bld) 14.2 % Normal 13.0 - 44.0 [facility] Comment on above: Performed By: #### C BCDF #### [address] [address] MCHC (RBC) [Mass/Vol] 32.5 g/dL Normal 32.0 - 36.0 [facility] Comment on above: Performed By: #### C BCDF #### [address] [address] MCV (RBC) [Entitic vol] 84 fL Normal 80 - 100 [facility] Comment on above: Performed By: #### C BCDF #### [address] [address] Monocytes (Bld) [#/Vol] 0.28 10*3/uL Normal 0.10 - 1.0 0 [facility] Comment on above: Performed By: #### C BCDF #### [address] [address] Monocytes/100 WBC (Bld) 4.4 % Normal 2.0 - 10.0 [facility] Comment on above: Performed By: #### C BCDF #### [address] [address] Neutrophils (Bld) [#/Vol] 5.17 10*3/uL Normal 1.20 - 7.70 [facility] Comment on above: Result Comment: Perc ent differential counts (%) should be interpreted in the context of the absolute cell counts (cells/L). Performed By: #### C BCDF #### [address] [address] Neutrophils/100 WBC (Bld) 80.4 % Normal 40.0 - 80.0 [facility] Comment on above: Performed By: #### C BCDF #### [address] [address] Platelets (Bld) [#/Vol] 212 10*3/uL Normal 150 - 450 [facility] Comment on above: Performed By: #### C BCDF #### [address] [address] RBC 5.00 x10E12/L Normal 4.00 - 5.20 [facility] Comment on above: Performed By: #### C BCDF #### [address] [address] WBC (Bld) [#/Vol] 6.4 10*3/uL Normal 4.4 - 11.3 [facility] Comment on above: Performed By: #### C BCDF #### [address] [address] HEPATIC FUNCTION PANELon Albumin [Mass/Vol] 4.5 g/dL Normal 3.4 - 5.0 [facility] Comment on above: Performed By: #### H EPFP #### [address] [address] ALP [Catalytic activity/Vol] 61 U/L Normal 33 - 110 [facility] Comment on above: Performed By: #### H EPFP #### [address] [address] ALT [Catalytic activity/Vol] 13 U/L Normal 7 - 45 [facility] Comment on above: Result Comment: Kamilla ents treated with Sulfasalazine may generate falsely decreased results for ALT. Performed By: #### H EPFP #### [address] [address] AST [Catalytic activity/Vol] 11 U/L Normal 9 - 39 [facility] Comment on above: Performed By: #### H EPFP #### [address] [address] Bilirubin [Mass/Vol] 0.3 mg/dL Normal 0.0 - 1.2 [facility] Comment on above: Performed By: #### H EPFP #### [address] [address] Bilirubin.indirect [Mass/Vol] 0.1 mg/dL Normal 0.0 - 0.3 [facility] Comment on above: Performed By: #### H EPFP #### [address] [address] Protein [Mass/Vol] 7.2 g/dL Normal 6.4 - 8.2 [facility] Comment on above: Performed By: #### H EPFP #### [address] [address] LACTATEon 07-05-2022 Lactate [Moles/Vol] 1.2 mmol/L Normal 0.4 - 2.0 [facility] Comment on above: Result Comment: Sandra puncture immediately after or during the administration of Metamizole may lead to falsely low results. Testing should be performed immediately prior to Metamizole dosing. Performed By: #### L ACT #### [address] [address] LIPASEon 07-05-2022 Lipase [Catalytic activity/Vol] 15 U/L Normal 9 - 82 [facility] Comment on above: Result Comment: Sandra puncture immediately after or during the administration of Metamizole may lead to falsely low results. Testing should be performed immediately prior to Metamizole dosing. U-idoiwk-l-benzoquinone imine (metabolite of Acetaminophen) will generate erroneously low results in samples for patients that have taken toxic doses of acetaminophen. Performed By: #### L IPAS #### [address] [address] Provider Note - ED v3on 06-22 Provider [...] following those procedures. They were done at [facility]. Patient gets most of her medical care at [facility]. 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 Sensation and motor function of extremities grossly intact. Psych: Appropriate mood and affect. I have reviewed and confirmed nurses/medics notes for patient past, social and family history. Portions of this note were dictated by speech recognition. An attempt at proof reading was made to minimize errors. Minor errors in epic interface analyst may be present. 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 Triage [...] Reference Range: STRAW,YELLOW Appearance, Urine CLEAR Specific [place], Urine 1.012 pH, Urine 6.0 Protein, Urine [...] SIGNS: T PRBP SpO2O2(LPM) %FiO2 Method 04-Jul-2022 23:00:[id number] 95 room air, no respiratory support 04-Jul-2022 22:35:[id number] 96 room air, no respiratory support 04-Jul-2022 22:09:[id number]/79 98 room air, no respiratory support 04-Jul-2022 22:05:[id number]/79 98 room air, no respiratory support [facility] MDM/ED COURSE: Patient is nontoxic appearing. I did review on the TXE network. She had a CT abdomen pelvis on June 10. She had an ultrasound of the pelvis also at [facility] on June 22 and another ultrasound at [facility] the next day on the second. I also reviewed the OARRS report which is somewhat extensive. Reassessment patient resting comfortab (more content not included)... Normal [facility] Risk Screen - Adult Emergenc n 07-05-2022 [...] material; verbal instruction Cultural Considerationsnone Developmental Considerationsnone Adventism Considerationsnone Learning Assessment (Other Learner): Learning Assessment (Other Learner): Other learner availableyes... Learnerspouse Factors Influencing Readiness to Learnacuteness of illness Factors that Impact Ability to Learnnone Devices/Methods Used to Communicatenone Learning Preferencesverbal instruction, written material Cultural Considerationsnone Developmental Considerationsnone Adventism Considerationsnone Pressure Injury/TB/Substance: Pressure Injury: Do you [...] an injured patient at a Trauma Center ([facility] [place]): no Electronic Signatures: Cristiana Golden (RN) (Signed 04-Jul-2022 22:13) Authored: Preferred Language, Patient Preferred Pharmacy, Advanced Directives, Family Violence Adult, Learning Assessment (Patient), Learning Assessment (Other Learner), Pressure Injury/TB/Substance, Pressure Injury, CAGE Last Updated: 04-Jul-2022 22:13 by Cristiana Golden (RN) [facility] Triage - EDon 07-05-2022 Triage - ED Quick Triage: Are You no Have You Given In The Last 6 Weeksno Are You Currently Breastfeedingno Chart Review: ARRIVAL INFORMATION Mode of Arrival: private vehicle CHIEF COMPLAINT LANA RIVERA is a Female patient with a chief complaint of abdominal pain (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 Patient has homicidal thoughts: no [...] 04-Jul-2022 22:12 by Cristiana Golden (RN) Normal [facility] URINALYSIS WITH CULTURE IF I NDICATEDon 07-05-2022 Appearance (U) CLEAR Normal CLEAR [facility] Comment on above: Performed By: #### U ARFX #### [address] [address] Bilirubin Ql (U) Negative Normal NEGATIVE [facility] Comment on above: Performed By: #### U ARFX #### [address] [address] Color (U) Straw Normal STRAW,YELLOW [facility] Comment on above: Performed By: #### U ARFX #### [address] [address] Glucose Ql (U) Negative Normal NEGATIVE [facility] Comment on above: Performed By: #### U ARFX #### [address] [address] Hemoglobin Ql (U) Negative Normal NEGATIVE [facility] Comment on above: Performed By: #### U ARFX #### [place] [address] Ketones Ql (U) Negative Normal NEGATIVE [facility] Comment on above: Performed By: #### U ARFX #### [address] [address] Leukocyte esterase Test strip Ql (U) Negative Normal NEGATIVE [facility] Comment on above: Performed By: #### U ARFX #### [place] [address] Nitrite Ql (U) Negative Normal NEGATIVE [facility] Comment on above: Performed By: #### U ARFX #### [place] [address] pH (U) 6.0 [pH] Normal 5.0 - 8.0 [facility] Comment on above: Performed By: #### U ARFX #### [place] [address] Protein Ql (U) Negative Normal NEGATIVE [facility] Comment on above: Performed By: #### U ARFX #### [place] [address] Specific gravity (U) [Rel density] 1.012 Normal 1.005 - 1.035 [facility] Comment on above: Performed By: #### U ARFX #### [place] [id number] Urobilinogen (U) [Mass/Vol] mg/dL Normal 0.0 - 1.9 [facility] Comment on above: Performed By: #### U ARFX #### [place] [id number] No Panel Informationon 06-29 Negative [facility] Negative [facility] US PELVIC TRANSABDOMINAL AND TRANSVAGINAL WITH COLOR [...] MonJun 23, 2022 10:43:29 PM EST Normal [facility] Comment on above: Order Comment: Injur y/Trauma or Illness?:Illness/Other How long have you had these symptoms (acute/chronic)?:Acute Reason for exam?:r/o ovarian torsion History of cancer?:unknown Surgeries, chemotherapy, or radiation?:unknown Type of Exam?:Initial Additional signs and symptoms?:none Absolute lymphocyte countOrd ered By: Dr. Jacobs on 06-10-2022 Lymphocytes Auto (Unsp spec) [#/Vol] 0.96 10*3/uL 0.83-4.51 [facility] Basophil percentageOrdered B y: Dr. Jacobs on 06-10-2022 Basophil percentage 108 mg/dL 74-106 [facility] Basophil percentage 139 mmol/L 136-145 [facility] Basophil percentage 3.9 mmol/L 3.5-5.1 [facility] Basophil percentage 106 mmol/L 98-107 [facility] Basophils (Bld) [#/Vol] 3.6 10*3/uL 4.4-11.0 [facility] Basophils (Bld) [#/Vol] 2.1 10*3/uL 2.0-7.7 [facility] Basophils/100 WBC (Bld) 56.4 % 47-70 [facility] Basophils/100 WBC (Bld) 8.0 % 0-5 [facility] Basophils/100 WBC (Bld) 0.6 % 0-1 [facility] Blood erythrocytes count (nu mber/volume)Ordered By: Dr. Jacobs on 06-10-2022 RBC (Bld) [#/Vol] 4.73 10*6/uL 4.2-5.4 [facility] Blood hemoglobin measurement (mass/volume)Ordered By: Dr. Jacobs on 06-10-2022 Hemoglobin (Bld) [Mass/Vol] 12.9 g/dL 12.0-15.0 [facility] Blood lymphocytes/100 leukoc ytesOrdered By: Dr. Jacobs on 06-10-2022 Lymphocytes/100 WBC (Bld) 26.4 % 19-41 [facility] Blood monocytes/100 leukocyt esOrdered By: Dr. Jacobs on 06-10-2022 Monocytes/100 WBC (Bld) 8.3 % 0-10 [facility] Blood platelet mean volumeOr dered By: Dr. Jacobs on 06-10-2022 Platelet mean volume (Bld) [Entitic vol] 10.8 fL 6.2-12.0 [facility] Determination of erythrocyte mean corpuscular volume (MCV)Ordered By: Dr. Jacobs on 06-10-2022 MCV (RBC) [Entitic vol] 85.4 fL 81-99 [facility] Hematocrit Auto (Bld) [Volum e fraction]Ordered By: Dr. Jacobs on 06-10-2022 Hematocrit (Bld) [Volume fraction] 40.4 % 37-47 [facility] MCHC Auto (RBC) [Mass/Vol]Or dered By: Dr. Jacobs on 06-10-2022 MCHC (RBC) [Mass/Vol] 31.9 g/dL 32-[address] [facility] No Panel InformationOrdered By: Dr. Jacobs on 06-10-2022 27.3 pg 27.0-32.0 [facility] 14.9 % 11.6-14.6 [facility] 46.7 fl 35.1-43.9 [facility] 0.300 % 0.0-0.9 [facility] 0 % 0-5 [facility] 107 mL/min >60 [facility] 129 mL/min >60 [facility] 109.71 ml/min [facility] 9.0 RATIO 10-20 [facility] 26.0 mmol/L 21.0-32.0 [facility] Platelets bldOrdered By: Dr. Jacobs on 06-10-2022 Platelets (Bld) [#/Vol] 166 10*3/uL 150-450 [facility] Serum or plasma calcium mg urement (mass/volume)Ordered By: Dr. Jacobs on 06-10-2022 Calcium [Mass/Vol] 8.3 mg/dL 8.5-10.1 [facility] Serum or plasma creatinine m easurement (mass/volume)Ordered By: Dr. Jacobs on 06-10-2022 Creatinine [Mass/Vol] 0.67 mg/dL 0.55-1.[address] [facility] Serum or plasma urea nitroge n measurement (mass/volume)Ordered By: Dr. Jacobs on 06-10-2022 Urea nitrogen [Mass/Vol] 6 mg/dL 7-18 [facility] Thin prep Papanicolaou smear with manual screeningOrdered By: Dr. Jacobs on 06-10-2022 Thin prep Papanicolaou smear with manual screening 7 5-15 [facility] No Panel InformationOrdered By: Grace Cho on 05-30-2022 2.1 mg/dL 1.6-2.6 [facility] 1.56 uIU/mL 0.358-3.74 [facility] 17.6 ng/mL [facility] Absolute lymphocyte countOrd ered By: ED PROVIDER on 05-23-2022 Lymphocytes Auto (Unsp spec) [#/Vol] 1.87 10*3/uL 0.83-4.51 [facility] Basophil percentageOrdered B y: Dr. Barajas on 05-23-2022 Basophil percentage 0 SEEN /hpf 0-5 [facility] Basophil percentage 108 mg/dL 74-106 [facility] Basophil percentage 139 mmol/L 136-145 [facility] Basophil percentage 3.7 mmol/L 3.5-5.1 [facility] Basophil percentage 107 mmol/L 98-107 [facility] Basophil percentageOrdered B y: ED PROVIDER on 05-23-2022 Basophils (Bld) [#/Vol] 4.9 10*3/uL 4.4-11.0 [facility] Basophils (Bld) [#/Vol] 2.3 10*3/uL 2.0-7.7 [facility] Basophils/100 WBC (Bld) 0.6 % 0-1 [facility] Basophils/100 WBC (Bld) 46.4 % 47-70 [facility] Basophils/100 WBC (Bld) 4.5 % 0-5 [facility] Basophil percentageon 2022 Chloride [Moles/Vol] 107 mmol/L 98-107 [facility] Work Phone: Eosinophils/100 WBC (Bld) 4.5 % 0-5 [facility] Work Phone: Glucose [Mass/Vol] 108 mg/dL 74-106 [facility] Work Phone: Comment on above: Fasting Glucose resu lt from 100 to 125 mg/dL suggests IMPAIRED HOMEOSTASIS per A.D.A. criteria. Neutrophils (Bld) [#/Vol] 2.3 10*3/uL 2.0-7.7 [facility] Work Phone: Neutrophils/100 WBC (Bld) 46.4 % 47-70 [facility] Work Phone: Potassium [Moles/Vol] 3.7 mmol/L 3.5-5.[address] [facility] Work Phone: Sodium [Moles/Vol] 139 mmol/L 136-145 [facility] Work Phone: WBC (Bld) [#/Vol] 4.9 10*3/uL 4.4-11.0 [facility] Work Phone: Bilirubin Test strip Ql (U)O rdered By: Dr. Barajas on 05-23-2022 Bilirubin Ql (U) Negative Negative [facility] Blood erythrocytes count (nu mber/volume)Ordered By: ED PROVIDER on 05-23-2022 RBC (Bld) [#/Vol] 4.62 10*6/uL 4.2-5.4 [facility] Blood hemoglobin measurement (mass/volume)Ordered By: ED PROVIDER on 05-23-2022 Hemoglobin (Bld) [Mass/Vol] 12.9 g/dL 12.0-15.0 [facility] Blood lymphocytes/100 leukoc ytesOrdered By: ED PROVIDER on 05-23-2022 Lymphocytes/100 WBC (Bld) 38.4 % 19-41 [facility] Blood monocytes/100 leukocyt esOrdered By: ED PROVIDER on 05-23-2022 Monocytes/100 WBC (Bld) 9.9 % 0-10 [facility] Blood platelet mean volumeOr dered By: ED PROVIDER on 05-23-2022 Platelet mean volume (Bld) [Entitic vol] 10.8 fL 6.2-12.0 [facility] Determination of erythrocyte mean corpuscular volume (MCV)Ordered By: ED PROVIDER on 05-23-2022 MCV (RBC) [Entitic vol] 85.7 fL 81-99 [facility] Hematocrit Auto (Bld) [Volum e fraction]Ordered By: ED PROVIDER on 05-23-2022 Hematocrit (Bld) [Volume fraction] 39.6 % 37-47 [facility] Ketones Test strip Ql (U)Ord ered By: Dr. Barajas on 05-23-2022 Ketones Ql (U) Negative Negative [facility] Laboratory - Chemistry and C hemistry - challengeon 05-23-2022 CO2 [Moles/Vol] 28.0 mmol/L 21.0-32.0 [facility] Work Phone: Urea nitrogen/Creatinine [Mass ratio] 14.6 mg/mg 10-20 [facility] Work Phone: Laboratory - Hematology and Cell countson 05-23-2022 Erythrocyte distribution width (RBC) [Entitic vol] 49.7 fL 35.1-43.9 [facility] Work Phone: Erythrocyte distribution width (RBC) [Ratio] 15.9 % 11.6-14.6 [facility] Work Phone: Immature granulocytes/100 WBC (Bld) 0.200 % 0.0-0.9 [facility] Work Phone: Comment on above: IG% - Immature Granu locytes (promyelocytes, myelocytes and metamyelocytes) > 1% indicates that a LEFT SHIFT is Present. MCH (RBC) [Entitic mass] 27.9 pg 27.0-32.0 [facility] Work Phone: Nucleated RBC/100 WBC (Bld) [Ratio] 0 % 0-5 [facility] Work Phone: [phone] MCHC Auto (RBC) [Mass/Vol]Or dered By: ED PROVIDER on 05-23-2022 MCHC (RBC) [Mass/Vol] 32.6 g/dL 32-[address] [facility] Mucus LM Ql (Urine sed)Order ed By: Dr. Barajas on 05-23-2022 Mucus Ql (Urine sed) 0 SEEN /hpf [facility] Nitrite Test strip Ql (U)Ord ered By: Dr. Barajas on 05-23-2022 Nitrite Ql (U) Negative Negative [facility] No Panel Informationon 05-23 Estimated Creatinine Clearance Calc 108.10 ml/min [facility] Work Phone: Estimated GFR (MDRD) Amer 126 mL/min >60 [facility] Work Phone: Comment on above: GFR Calc Estimated GFR (MDRD) Non-Af Amer 104 mL/min >60 [facility] Work Phone: Comment on above: Non- GFR Calc No Panel InformationOrdered By: ED PROVIDER on 05-23-2022 27.9 pg 27.0-32.0 [facility] 15.9 % 11.6-14.6 [facility] 49.7 fl 35.1-43.9 [facility] 0.200 % 0.0-0.9 [facility] 0 % 0-5 [facility] No Panel InformationOrdered By: Dr. Barajas on 05-23-2022 104 mL/min >60 [facility] 126 mL/min >60 [facility] 108.10 ml/min [facility] 14.6 RATIO 10-20 [facility] 28.0 mmol/L 21.0-32.0 [facility] Platelets bldOrdered By: ED PROVIDER on 05-23-2022 Platelets (Bld) [#/Vol] 191 10*3/uL 150-450 [facility] Protein Test strip Ql (U)Ord ered By: Dr. Barajas on 05-23-2022 Protein Ql (U) 15 mg/dl Negative [facility] Serum or plasma calcium mg urement (mass/volume)Ordered By: Dr. Barajas on 05-23-2022 Calcium [Mass/Vol] 9.2 mg/dL 8.5-10.1 [facility] Serum or plasma creatinine m easurement (mass/volume)Ordered By: Dr. Barajas on 05-23-2022 Creatinine [Mass/Vol] 0.68 mg/dL 0.55-1.[address] [facility] Comment on above: The validity of the calculated GFR & GFRAA in patients over 70 years has not been determined. Clinical correlation is essential. Serum or plasma urea nitroge n measurement (mass/volume)Ordered By: Dr. Barajas on 05-23-2022 Urea nitrogen [Mass/Vol] 10 mg/dL 7-18 [facility] Squamous epithelial cells de tection in urine sediment by light microscopyOrdered By: Dr. Barajas on 05-23-2022 Epithelial cells.squamous LM Ql (Urine sed) 5-10 SEEN /hpf 5-10 [facility] Thin prep Papanicolaou smear with manual screeningOrdered By: Dr. Barajas on 05-23-2022 Thin prep Papanicolaou smear with manual screening 4 5-15 [facility] Urine blood detectionOrdered By: Dr. Barajas on 05-23-2022 RBC Ql (U) Negative Negative [facility] RBC Ql (U) 0 SEEN /hpf 0-5 [facility] Urine clarityOrdered By: Dr. Barajas on 05-23-2022 Clarity (U) Sl. Cloudy Clear [facility] Urine color determinationOrd ered By: Dr. Barajas on 05-23-2022 Color (U) Yellow Yellow [facility] Urine glucose detectionOrder ed By: Dr. Barajas on 05-23-2022 Glucose Ql (U) Normal mg/dl Normal [facility] Urine leukocyte esterase det ection by dipstickOrdered By: Dr. Barajas on 05-23-2022 Leukocyte esterase Test strip Ql (U) Negative Negative [facility] Urine pHOrdered By: Dr. Nancy orantes on 05-23-2022 pH (U) 6.0 [pH] 5.0 - 8.0 [facility] Urine sediment bacteria coun t by microscopy (number/high power field)Ordered By: Dr. Barajas on 05-23-2022 Bacteria LM.HPF (Urine sed) [#/Area] RARE /hpf None Seen [facility] Urine specific gravity measu rementOrdered By: Dr. Barajas on 05-23-2022 Specific gravity (U) [Rel density] 1.025 1.002-1.030 [facility] Urobilinogen Auto test strip Ql (U)Ordered By: Dr. Barajas on 05-23-2022 Urobilinogen Ql (U) Normal mg/dl Normal [facility] Bacteria identified Anaer cx Nom (Unsp spec)Ordered By: Dr. Myrick on 04-19-2022 Anaerobic culture Prevotella bivia [facility] Anaerobic culture Prevotella melaninogenica [facility] Anaerobic culture Anaerobic cocci [facility] Bacteria identified Cx Nom ( Wound)Ordered By: Dr. Myrick on 04-18-2022 Routine wound culture Enterococcus faecalis [facility] No Panel InformationOrdered By: Dr. Aguila on 04-18-2022 No growth in 5 days. [facility] Basophil percentageOrdered B y: Dr. Myrick on 04-16-2022 Basophils (Bld) [#/Vol] 6.0 10*3/uL 4.4-11.0 [facility] Basophil percentageon 2021 WBC (Bld) [#/Vol] 6.0 10*3/uL 4.4-11.0 [facility] Work Phone: Blood erythrocytes count (nu mber/volume)Ordered By: Dr. Myrick on 04-16-2022 RBC (Bld) [#/Vol] 3.88 10*6/uL 4.2-5.4 [facility] Blood hemoglobin measurement (mass/volume)Ordered By: Dr. Myrick on 04-16-2022 Hemoglobin (Bld) [Mass/Vol] 10.4 g/dL 12.0-15.0 [facility] Blood platelet mean volumeOr dered By: Dr. Myrick on 04-16-2022 Platelet mean volume (Bld) [Entitic vol] 10.2 fL 6.2-12.0 [facility] Determination of erythrocyte mean corpuscular volume (MCV)Ordered By: Dr. Myrick on 04-16-2022 MCV (RBC) [Entitic vol] 84.8 fL 81-99 [facility] Hematocrit Auto (Bld) [Volum e fraction]Ordered By: Dr. Myrick on 04-16-2022 Hematocrit (Bld) [Volume fraction] 32.9 % 37-47 [facility] Laboratory - Hematology and Cell countson 04-16-2022 Erythrocyte distribution width (RBC) [Entitic vol] 38.4 fL 35.1-43.9 [facility] Work Phone: Erythrocyte distribution width (RBC) [Ratio] 12.5 % 11.6-14.6 [facility] Work Phone: MCH (RBC) [Entitic mass] 26.8 pg 27.0-32.0 [facility] Work Phone: MCHC Auto (RBC) [Mass/Vol]Or dered By: Dr. Myrick on 04-16-2022 MCHC (RBC) [Mass/Vol] 31.6 g/dL 32-[address] [facility] No Panel InformationOrdered By: Dr. Myrick on 04-16-2022 26.8 pg 27.0-32.0 [facility] 12.5 % 11.6-14.6 [facility] 38.4 fl 35.1-43.9 [facility] Platelets bldOrdered By: Dr. Myrick on 04-16-2022 Platelets (Bld) [#/Vol] 205 10*3/uL 150-450 [facility] Glucose Glucometer (BldC) [M ass/Vol]Ordered By: Dr. Moore on 04-15-2022 Glucose [Mass/Vol] 146 mg/dL 74-106 [facility] Comment on above: MANAGEMENT OF PATIEN T CARE PER NURSING PROTOCOL Gram stain for investigation of transfusion reactionOrdered By: Dr. Myrick on 04-15-2022 Microscopic observation Gram stain Nom (Unsp spec) [facility] No Panel Informationon 04-15 Thyroid Stimulating Hormone (TSH) 4.08 uIU/mL 0.358-3.74 [facility] Work Phone: No Panel InformationOrdered By: Dr. Garcia on 04-15-2022 4.08 uIU/mL 0.358-3.74 [facility] Whole blood hemoglobin A1c/t otal hemoglobin ratio (mass fraction)Ordered By: Dr. Garcia on 04-15-2022 HbA1c (Bld) [Mass fraction] 5.6 % 3.8-5.6 [facility] Comment on above: Normal < 5.7 % Predi abetic 5.7 - 6.4 % Diabetic >or= 6.5 % Please note range changes. Absolute lymphocyte countOrd ered By: Dr. Moore on 04-14-2022 Lymphocytes Auto (Unsp spec) [#/Vol] 1.36 10*3/uL 0.83-4.51 [facility] Basophil percentageOrdered B y: Dr. Myrick on 04-14-2022 Basophil percentage 122 mg/dL 74-106 [facility] Basophil percentage 7.5 g/dL 6.4-8.2 [facility] Basophil percentage 0.40 mg/dL 0.20-1.00 [facility] Basophil percentage 135 mmol/L 136-145 [facility] Basophil percentage 3.6 mmol/L 3.5-5.1 [facility] Basophil percentage 100 mmol/L 98-107 [facility] Basophil percentageOrdered B y: Dr. Moore on 04-14-2022 Basophils (Bld) [#/Vol] 5.8 10*3/uL 2.0-7.7 [facility] Basophils/100 WBC (Bld) 0.4 % 0-1 [facility] Basophils/100 WBC (Bld) 69.4 % 47-70 [facility] Basophils/100 WBC (Bld) 2.3 % 0-5 [facility] Basophil percentageon 2021 Bilirubin [Mass/Vol] 0.40 mg/dL 0.20-1.00 [facility] Work Phone: Comment on above: For patients on eltr ombopag therapy, use of Dimension [place] TBIL is not recommended. Chloride [Moles/Vol] 100 mmol/L 98-107 [facility] Work Phone: Eosinophils/100 WBC (Bld) 2.3 % 0-5 [facility] Work Phone: Glucose [Mass/Vol] 122 mg/dL 74-106 [facility] Work Phone: [phone] Comment on above: Fasting Glucose resu lt from 100 to 125 mg/dL suggests IMPAIRED HOMEOSTASIS per A.D.A. criteria. Neutrophils (Bld) [#/Vol] 5.8 10*3/uL 2.0-7.7 [facility] Work Phone: Neutrophils/100 WBC (Bld) 69.4 % 47-70 [facility] Work Phone: [phone] Potassium [Moles/Vol] 3.6 mmol/L 3.5-5.[address] [facility] Work Phone: Protein [Mass/Vol] 7.5 g/dL 6.4-8.2 [facility] Work Phone: Sodium [Moles/Vol] 135 mmol/L 136-145 [facility] Work Phone: Blood lymphocytes/100 leukoc ytesOrdered By: Dr. Moore on 04-14-2022 Lymphocytes/100 WBC (Bld) 16.2 % 19-41 [facility] Blood monocytes/100 leukocyt esOrdered By: Dr. Moore on 04-14-2022 Monocytes/100 WBC (Bld) 11.5 % 0-10 [facility] Laboratory - Chemistry and C hemistry - challengeon 04-14-2022 ALP [Catalytic activity/Vol] 77 U/L 45-117 [facility] Work Phone: [phone] ALT [Catalytic activity/Vol] 16 U/L 13-56 [facility] Work Phone: [phone] CO2 [Moles/Vol] 26.0 mmol/L 21.0-32.0 [facility] [facility] Work Phone: [phone] Globulin (S) [Mass/Vol] 4.3 g/dL 2.2-4.2 [facility] Work Phone: [phone] Urea nitrogen/Creatinine [Mass ratio] 10.6 mg/mg - [facility] Work Phone: [phone] Laboratory - Hematology and Cell countson 04-14-2022 Immature granulocytes/100 WBC (Bld) 0.200 % 0.0-0.9 [facility] Work Phone: Comment on above: IG% - Immature Granu locytes (promyelocytes, myelocytes and metamyelocytes) > 1% indicates that a LEFT SHIFT is Present. Nucleated RBC/100 WBC (Bld) [Ratio] 0 % 0-5 [facility] Work Phone: No Panel Informationon 04-14 Estimated Creatinine Clearance Calc 95.11 ml/min [facility] Work Phone: Estimated GFR (MDRD) Amer 113 mL/min >60 [facility] Work Phone: [phone] Comment on above: GFR Calc Estimated GFR (MDRD) Non-Af Amer 93 mL/min >60 [facility] Work Phone: Comment on above: Non- GFR Calc No Panel InformationOrdered By: Dr. Moore on 04-14-2022 0.200 % 0.0-0.9 [facility] 0 % 0-5 [facility] No Panel InformationOrdered By: Dr. Myrick on 04-14-2022 93 mL/min >60 [facility] 113 mL/min >60 [facility] 95.11 ml/min [facility] 10.6 RATIO -20 [facility] 4.3 g/dL 2.2-4.2 [facility] 77 U/L 45-117 [facility] 16 U/L 13-56 [facility] 26.0 mmol/L 21.0-32.0 [facility] Serum or plasma albumin mg urement (mass/volume)Ordered By: Dr. Myrick on 04-14-2022 Albumin [Mass/Vol] 3.2 g/dL 3.2-5.0 [facility] Serum or plasma albumin/glob ulin mass ratioOrdered By: Dr. Myrick on 04-14-2022 Albumin/Globulin [Mass ratio] 0.7 {ratio} 0.9-2.4 [facility] Serum or plasma calcium mg urement (mass/volume)Ordered By: Dr. Myrick on 04-14-2022 Calcium [Mass/Vol] 9.1 mg/dL 8.5-10.1 [facility] Serum or plasma creatinine m easurement (mass/volume)Ordered By: Dr. Myrick on 04-14-2022 Creatinine [Mass/Vol] 0.75 mg/dL 0.55-1.[address] [facility] Comment on above: The validity of the calculated GFR & GFRAA in patients over 70 years has not been determined. Clinical correlation is essential. Serum or plasma urea nitroge n measurement (mass/volume)Ordered By: Dr. Myrick on 04-14-2022 Urea nitrogen [Mass/Vol] 8 mg/dL 7-18 [facility] Thin prep Papanicolaou smear with manual screeningOrdered By: Dr. Myrick on 04-14-2022 Thin prep Papanicolaou smear with manual screening 8 U/L 15-37 [facility] Thin prep Papanicolaou smear with manual screening 9 5-15 [facility] INR in Blood by Coagulation assayOrdered By: Dr. Moore on 04-13-2022 INR Coag (Bld) [Relative time] 1.2 {INR} [facility] Laboratory - Coagulationon 1 06-13-2021 PT Coag (PPP) [Time] 14.4 s 11.7-14.9 [facility] Work Phone: No Panel InformationOrdered By: Dr. Moore on 04-13-2022 14.4 SECONDS 11.7-14.9 [facility] Absolute lymphocyte counton 04-12-2022 Lymphocytes Auto (Unsp spec) [#/Vol] 0.96 10*3/uL 0.83-4.51 [facility] Work Phone: Basophil percentageOrdered B y: Dr. Aguila on 04-12-2022 Basophil percentage 0 SEEN /hpf 0-5 [facility] Basophil percentage 1.6 mmol/L 0.4-2.0 [facility] Basophil percentageon 2021 Basophils/100 WBC (Bld) 0.4 % 0-1 [facility] Work Phone: Chloride [Moles/Vol] 102 mmol/L 98-107 [facility] Work Phone: Eosinophils/100 WBC (Bld) 0.8 % 0-5 [facility] Work Phone: Glucose [Mass/Vol] 109 mg/dL 74-106 [facility] Work Phone: Comment on above: Fasting Glucose resu lt from 100 to 125 mg/dL suggests IMPAIRED HOMEOSTASIS per A.D.A. criteria. Lactate [Moles/Vol] 1.6 mmol/L 0.4-2.0 [facility] Work Phone: Neutrophils (Bld) [#/Vol] 6.4 10*3/uL 2.0-7.7 [facility] Work Phone: Neutrophils/100 WBC (Bld) 76.7 % 47-70 [facility] Work Phone: Potassium [Moles/Vol] 3.3 mmol/L 3.5-5.[address] [facility] Work Phone: Sodium [Moles/Vol] 137 mmol/L 136-145 [facility] Work Phone: WBC (Bld) [#/Vol] 8.3 10*3/uL 4.4-11.0 [facility] Work Phone: Bilirubin Test strip Ql (U)O rdered By: Dr. Aguila on 04-12-2022 Bilirubin Ql (U) Negative Negative [facility] Blood erythrocytes count (nu mber/volume)on 04-12-2022 RBC (Bld) [#/Vol] 4.40 10*6/uL 4.2-5.4 [facility] Work Phone: Blood hemoglobin measurement (mass/volume)on 04-12-2022 Hemoglobin (Bld) [Mass/Vol] 11.9 g/dL 12.0-15.0 [facility] Work Phone: Blood lymphocytes/100 leukoc yteson 04-12-2022 Lymphocytes/100 WBC (Bld) 11.6 % 19-41 [facility] Work Phone: Blood monocytes/100 leukocyt eson 04-12-2022 Monocytes/100 WBC (Bld) 10.3 % 0-10 [facility] Work Phone: Blood platelet mean volumeon 04-12-2022 Platelet mean volume (Bld) [Entitic vol] 10.4 fL 6.2-12.0 [facility] Work Phone: Determination of erythrocyte mean corpuscular volume (MCV)on 04-12-2022 MCV (RBC) [Entitic vol] 82.3 fL 81-99 [facility] Work Phone: Hematocrit Auto (Bld) [Volum e fraction]on 04-12-2022 Hematocrit (Bld) [Volume fraction] 36.2 % 37-47 [facility] Work Phone: Influenza virus A and B and SARS-CoV-2 (COVID-19) Ag panel - Upper respiratory specimOrdered By: Dr. Aguila on 04-12-2022 SARS-CoV-2 (COVID-19) RNA JONE+probe Ql (Resp) [facility] Ketones Test strip Ql (U)Ord ered By: Dr. Aguila on 04-12-2022 Ketones Ql (U) Negative Negative [facility] Laboratory - Chemistry and C hemistry - challengeon 04-12-2022 CO2 [Moles/Vol] 28.0 mmol/L 21.0-32.0 [facility] Work Phone: Urea nitrogen/Creatinine [Mass ratio] 7.1 mg/mg 10-20 [facility] Work Phone: Laboratory - Hematology and Cell countson 04-12-2022 Erythrocyte distribution width (RBC) [Entitic vol] 37.9 fL 35.1-43.9 [facility] Work Phone: Erythrocyte distribution width (RBC) [Ratio] 12.4 % 11.6-14.6 [facility] Work Phone: Immature granulocytes/100 WBC (Bld) 0.200 % 0.0-0.9 [facility] Work Phone: Comment on above: IG% - Immature Granu locytes (promyelocytes, myelocytes and metamyelocytes) > 1% indicates that a LEFT SHIFT is Present. MCH (RBC) [Entitic mass] 27.0 pg 27.0-32.0 [facility] Work Phone: Nucleated RBC/100 WBC (Bld) [Ratio] 0 % 0-5 [facility] Work Phone: MCHC Auto (RBC) [Mass/Vol]on 04-12-2022 MCHC (RBC) [Mass/Vol] 32.9 g/dL 32-[address] [facility] Work Phone: Mucus LM Ql (Urine sed)Order ed By: Dr. Aguila on 04-12-2022 Mucus Ql (Urine sed) 0 SEEN /hpf [facility] Nitrite Test strip Ql (U)Ord ered By: Dr. Aguila on 04-12-2022 Nitrite Ql (U) Negative Negative [facility] No Panel Informationon 04-12 D-Dimer Quantitative (PE/DVT) 1.56 FEU/ug/m 0.27-0.49 [facility] Work Phone: Comment on above: D-Dimer ELEVATED [...] (PE) Estimated Creatinine Clearance Calc 101.90 ml/min [facility] Work Phone: Estimated GFR (MDRD) Amer 122 mL/min >60 [facility] Work Phone: Comment on above: GFR Calc Estimated GFR (MDRD) Non-Af Amer 101 mL/min >60 [facility] Work Phone: Comment on above: Non- GFR Calc No Panel InformationOrdered By: Dr. Aguila on 04-12-2022 1.56 FEU/ug/m 0.27-0.49 [facility] Platelets bldon 04-12-2022 Platelets (Bld) [#/Vol] 255 10*3/uL 150-450 [facility] Work Phone: [phone] Protein Test strip Ql (U)Ord ered By: Dr. Aguila on 04-12-2022 Protein Ql (U) Negative Negative [facility] Serum or plasma calcium mg urement (mass/volume)on 04-12-2022 Calcium [Mass/Vol] 9.0 mg/dL 8.5-10.1 [facility] Work Phone: [phone] Serum or plasma creatinine m easurement (mass/volume)on 04-12-2022 Creatinine [Mass/Vol] 0.70 mg/dL 0.55-1.[address] [facility] Work Phone: [phone] Comment on above: The validity of the calculated GFR & GFRAA in patients over 70 years has not been determined. Clinical correlation is essential. Serum or plasma urea nitroge n measurement (mass/volume)on 04-12-2022 Urea nitrogen [Mass/Vol] 5 mg/dL 7-18 [facility] Work Phone: Squamous epithelial cells de tection in urine sediment by light microscopyOrdered By: Dr. Aguila on 04-12-2022 Epithelial cells.squamous LM Ql (Urine sed) 0-5 SEEN /hpf 5-10 [facility] Thin prep Papanicolaou smear with manual screeningon 04-12-2022 Thin prep Papanicolaou smear with manual screening 7 5-15 [facility] Work Phone: Urine blood detectionOrdered By: Dr. Aguila on 04-12-2022 RBC Ql (U) Negative Negative [facility] RBC Ql (U) 0 SEEN /hpf 0-5 [facility] Urine clarityOrdered By: Dr. Aguila on 04-12-2022 Clarity (U) Clear Clear [facility] Urine color determinationOrd ered By: Dr. Aguila on 04-12-2022 Color (U) Yellow Yellow [facility] Urine glucose detectionOrder ed By: Dr. Aguila on 04-12-2022 Glucose Ql (U) Normal mg/dl Normal [facility] Urine leukocyte esterase det ection by dipstickOrdered By: Dr. Aguila on 04-12-2022 Leukocyte esterase Test strip Ql (U) 25 /ul Negative [facility] Urine pHOrdered By: Dr. Presley baxter on 04-12-2022 pH (U) 6.5 [pH] 5.0 - 8.0 [facility] Urine sediment bacteria coun t by microscopy (number/high power field)Ordered By: Dr. Aguila on 04-12-2022 Bacteria LM.HPF (Urine sed) [#/Area] 0 /[HPF] None Seen [facility] Urine specific gravity measu rementOrdered By: Dr. Aguila on 04-12-2022 Specific gravity (U) [Rel density] 1.010 1.002-1.030 [facility] Urobilinogen Auto test strip Ql (U)Ordered By: Dr. Aguila on 04-12-2022 Urobilinogen Ql (U) Normal mg/dl Normal [facility] Bacteria identified Cx Nom ( U)Ordered By: Dr. Myrick on 03-31-2022 Culture, urine Mixed Gram Pos & Gra m Neg Org [facility] Absolute lymphocyte countOrd ered By: Dr. Kulkarni on 03-30-2022 Lymphocytes Auto (Unsp spec) [#/Vol] 1.50 10*3/uL 0.83-4.51 [facility] Basophil percentageOrdered B y: Dr. Kulkarni on 03-30-2022 Basophil percentage 102 mg/dL 74-106 [facility] Basophil percentage 7.3 g/dL 6.4-8.2 [facility] Basophil percentage 0.40 mg/dL 0.20-1.00 [facility] Basophil percentage 137 mmol/L 136-145 [facility] Basophil percentage 3.8 mmol/L 3.5-5.1 [facility] Basophil percentage 105 mmol/L 98-107 [facility] Basophils (Bld) [#/Vol] 6.5 10*3/uL 4.4-11.0 [facility] Basophils (Bld) [#/Vol] 4.2 10*3/uL 2.0-7.7 [facility] Basophils/100 WBC (Bld) 0.3 % 0-1 [facility] Basophils/100 WBC (Bld) 64.8 % 47-70 [facility] Basophils/100 WBC (Bld) 4.0 % 0-5 [facility] Basophil percentageon 2021 Bilirubin [Mass/Vol] 0.40 mg/dL 0.20-1.00 [facility] Work Phone: Comment on above: For patients on eltr ombopag therapy, use of Dimension [place] TBIL is not recommended. Chloride [Moles/Vol] 105 mmol/L 98-107 [facility] Work Phone: Eosinophils/100 WBC (Bld) 4.0 % 0-5 [facility] Work Phone: Glucose [Mass/Vol] 102 mg/dL 74-106 [facility] Work Phone: Comment on above: Fasting Glucose resu lt from 100 to 125 mg/dL suggests IMPAIRED HOMEOSTASIS per A.D.A. criteria. Neutrophils (Bld) [#/Vol] 4.2 10*3/uL 2.0-7.7 [facility] Work Phone: Neutrophils/100 WBC (Bld) 64.8 % 47-70 [facility] Work Phone: Potassium [Moles/Vol] 3.8 mmol/L 3.5-5.[address] [facility] Work Phone: Protein [Mass/Vol] 7.3 g/dL 6.4-8.2 [facility] Work Phone: Sodium [Moles/Vol] 137 mmol/L 136-145 [facility] Work Phone: WBC (Bld) [#/Vol] 6.5 10*3/uL 4.4-11.0 [facility] Work Phone: [phone] Blood erythrocytes count (nu mber/volume)Ordered By: Dr. Kulkarni on 03-30-2022 RBC (Bld) [#/Vol] 4.60 10*6/uL 4.2-5.4 [facility] Blood hemoglobin measurement (mass/volume)Ordered By: Dr. Kulkarni on 03-30-2022 Hemoglobin (Bld) [Mass/Vol] 13.0 g/dL 12.0-15.0 [facility] Blood lymphocytes/100 leukoc ytesOrdered By: Dr. Kulkarni on 03-30-2022 Lymphocytes/100 WBC (Bld) 23.1 % 19-41 [facility] Blood monocytes/100 leukocyt esOrdered By: Dr. Kulkarni on 03-30-2022 Monocytes/100 WBC (Bld) 7.5 % 0-10 [facility] Blood platelet mean volumeOr dered By: Dr. Kulkarni on 03-30-2022 Platelet mean volume (Bld) [Entitic vol] 10.5 fL 6.2-12.0 [facility] Determination of erythrocyte mean corpuscular volume (MCV)Ordered By: Dr. Kulkarni on 03-30-2022 MCV (RBC) [Entitic vol] 84.6 fL 81-99 [facility] Hematocrit Auto (Bld) [Volum e fraction]Ordered By: Dr. Kulkarni on 03-30-2022 Hematocrit (Bld) [Volume fraction] 38.9 % 37-47 [facility] Laboratory - Chemistry and C hemistry - challengeon 03-30-2022 ALP [Catalytic activity/Vol] 69 U/L 45-117 [facility] Work Phone: ALT [Catalytic activity/Vol] 31 U/L 13-56 [facility] Work Phone: CO2 [Moles/Vol] 27.0 mmol/L 21.0-32.0 [facility] Work Phone: Globulin (S) [Mass/Vol] 3.7 g/dL 2.2-4.2 [facility] Work Phone: Urea nitrogen/Creatinine [Mass ratio] 12.7 mg/mg 10-20 [facility] Work Phone: Bilirubin Ql (U) Negative [facility] Work Phone: Glucose Ql (U) Negative [facility] Work Phone: Ketones Ql (U) Negative [facility] Work Phone: pH (U) 6.5 [pH] [facility] Work Phone: Specific gravity (U) [Rel density] 1.025 [facility] Work Phone: Urobilinogen (U) [Mass/Vol] 0.3832068 mg/dL [facility] Work Phone: Laboratory - Hematology and Cell countson 03-30-2022 Erythrocyte distribution width (RBC) [Entitic vol] 37.9 fL 35.1-43.9 [facility] Work Phone: Erythrocyte distribution width (RBC) [Ratio] 12.5 % 11.6-14.6 [facility] Work Phone: Immature granulocytes/100 WBC (Bld) 0.300 % 0.0-0.9 [facility] Work Phone: Comment on above: IG% - Immature Granu locytes (promyelocytes, myelocytes and metamyelocytes) > 1% indicates that a LEFT SHIFT is Present. MCH (RBC) [Entitic mass] 28.3 pg 27.0-32.0 [facility] Work Phone: Nucleated RBC/100 WBC (Bld) [Ratio] 0 % 0-5 [facility] Work Phone: Hemoglobin Ql (U) Negative [facility] Work Phone: Laboratory - Specimen inform ationon 03-30-2022 Clarity (U) Clear [facility] Work Phone: Color (U) Yellow [facility] Work Phone: Laboratory - Urinalysison Nitrite Ql (U) Negative [facility] Work Phone: Protein Ql (U) Negative [facility] Work Phone: MCHC Auto (RBC) [Mass/Vol]Or dered By: Dr. Kulkarni on 03-30-2022 MCHC (RBC) [Mass/Vol] 33.4 g/dL 32-[address] [facility] No Panel Informationon 03-30 Estimated Creatinine Clearance Calc 104.52 ml/min [facility] Work Phone: Estimated GFR (MDRD) Amer 121 mL/min >60 [facility] Work Phone: Comment on above: GFR Calc Estimated GFR (MDRD) Non-Af Amer 100 mL/min >60 [facility] Work Phone: Comment on above: Non- GFR Calc [facility] Yellow [facility] Clear [facility] Negative [facility] 1.025 [facility] 6.5 [facility] 0.2 mg/dL [facility] Negve [facility] No Panel InformationOrdered By: Dr. Kulkarni on 03-30-2022 28.3 pg 27.0-32.0 [facility] 12.5 % 11.6-14.6 [facility] 37.9 fl 35.1-43.9 [facility] 0.300 % 0.0-0.9 [facility] 0 % 0-5 [facility] 100 mL/min >60 [facility] 121 mL/min >60 [facility] 104.52 ml/min [facility] 12.7 RATIO 10-20 [facility] 3.7 g/dL 2.2-4.2 [facility] 69 U/L 45-117 [facility] 31 U/L 13-56 [facility] 27.0 mmol/L 21.0-32.0 [facility] Platelets bldOrdered By: Dr. Kulkarni on 03-30-2022 Platelets (Bld) [#/Vol] 243 10*3/uL 150-450 [facility] Serum or plasma albumin mg urement (mass/volume)Ordered By: Dr. Kulkarni on 03-30-2022 Albumin [Mass/Vol] 3.6 g/dL 3.2-5.0 [facility] Serum or plasma albumin/glob ulin mass ratioOrdered By: Dr. Kulkarni on 03-30-2022 Albumin/Globulin [Mass ratio] 1.0 {ratio} 0.9-2.4 [facility] Serum or plasma calcium mg urement (mass/volume)Ordered By: Dr. Kulkarni on 03-30-2022 Calcium [Mass/Vol] 9.1 mg/dL 8.5-10.1 [facility] Serum or plasma creatinine m easurement (mass/volume)Ordered By: Dr. Kulkarni on 03-30-2022 Creatinine [Mass/Vol] 0.71 mg/dL 0.55-1.[address] [facility] Comment on above: The validity of the calculated GFR & GFRAA in patients over 70 years has not been determined. Clinical correlation is essential. Serum or plasma urea nitroge n measurement (mass/volume)Ordered By: Dr. Kulkarni on 03-30-2022 Urea nitrogen [Mass/Vol] 9 mg/dL 7-18 [facility] Thin prep Papanicolaou smear with manual screeningOrdered By: Dr. Kulkarni on 03-30-2022 Thin prep Papanicolaou smear with manual screening 17 U/L 15-37 [facility] Thin prep Papanicolaou smear with manual screening 5 5-15 [facility] Basophil percentageOrdered B y: Dr. Moore on 03-23-2022 Basophils (Bld) [#/Vol] 9.1 10*3/uL 4.4-11.0 [facility] Basophil percentageon 2021 WBC (Bld) [#/Vol] 9.1 10*3/uL 4.4-11.0 [facility] Work Phone: Blood erythrocytes count (nu mber/volume)Ordered By: Dr. Moore on 03-23-2022 RBC (Bld) [#/Vol] 4.74 10*6/uL 4.2-5.4 [facility] Blood hemoglobin measurement (mass/volume)Ordered By: Dr. Moore on 03-23-2022 Hemoglobin (Bld) [Mass/Vol] 13.4 g/dL 12.0-15.0 [facility] Blood platelet mean volumeOr dered By: Dr. Moore on 03-23-2022 Platelet mean volume (Bld) [Entitic vol] 10.6 fL 6.2-12.0 [facility] Determination of erythrocyte mean corpuscular volume (MCV)Ordered By: Dr. Moore on 03-23-2022 MCV (RBC) [Entitic vol] 84.8 fL 81-99 [facility] Glucose Glucometer (BldC) [M ass/Vol]Ordered By: Dr. Moore on 03-23-2022 Glucose [Mass/Vol] 142 mg/dL 74-106 [facility] Comment on above: MANAGEMENT OF PATIEN T CARE PER NURSING PROTOCOL Hematocrit Auto (Bld) [Volum e fraction]Ordered By: Dr. Moore on 03-23-2022 Hematocrit (Bld) [Volume fraction] 40.2 % 37-47 [facility] Laboratory - Hematology and Cell countson 03-23-2022 Erythrocyte distribution width (RBC) [Entitic vol] 38.3 fL 35.1-43.9 [facility] Work Phone: Erythrocyte distribution width (RBC) [Ratio] 12.4 % 11.6-14.6 [facility] Work Phone: MCH (RBC) [Entitic mass] 28.3 pg 27.0-32.0 [facility] Work Phone: MCHC Auto (RBC) [Mass/Vol]Or dered By: Dr. Moore on 03-23-2022 MCHC (RBC) [Mass/Vol] 33.3 g/dL 32-[address] [facility] No Panel InformationOrdered By: Dr. Moore on 03-23-2022 28.3 pg 27.0-32.0 [facility] 12.4 % 11.6-14.6 [facility] 38.3 fl 35.1-43.9 [facility] Platelets bldOrdered By: Dr. Moore on 03-23-2022 Platelets (Bld) [#/Vol] 172 10*3/uL 150-450 [facility] Absolute lymphocyte countOrd ered By: Dr. Moore on 03-22-2022 Lymphocytes Auto (Unsp spec) [#/Vol] 0.61 10*3/uL 0.83-4.51 [facility] Basophil percentageOrdered B y: Dr. Moore on 03-22-2022 Basophils (Bld) [#/Vol] 10.2 10*3/uL 2.0-7.7 [facility] Basophils/100 WBC (Bld) 0.1 % 0-1 [facility] Basophils/100 WBC (Bld) 89.1 % 47-70 [facility] Basophils/100 WBC (Bld) 0.0 % 0-5 [facility] Basophil percentageon 2021 Eosinophils/100 WBC (Bld) 0.0 % 0-5 [facility] Work Phone: Neutrophils (Bld) [#/Vol] 10.2 10*3/uL 2.0-7.7 [facility] Work Phone: Neutrophils/100 WBC (Bld) 89.1 % 47-70 [facility] Work Phone: Blood lymphocytes/100 leukoc ytesOrdered By: Dr. Moore on 03-22-2022 Lymphocytes/100 WBC (Bld) 5.3 % 19-41 [facility] Blood monocytes/100 leukocyt esOrdered By: Dr. Moore on 03-22-2022 Monocytes/100 WBC (Bld) 5.1 % 0-10 [facility] Laboratory - Chemistry and C hemistry - challengeon 03-22-2022 HCG ( test) Ql (U) Negative [facility] Work Phone: Comment on above: Very dilute urine sp ecimens, as indicated by a low specificgravity, may not contain enrollment representative levels of hCG. If is still suspected, a first morning urinespecimen should be collected 48 hours later and tested. Laboratory - Hematology and Cell countson 03-22-2022 Immature granulocytes/100 WBC (Bld) 0.400 % 0.0-0.9 [facility] Work Phone: Comment on above: IG% - Immature Granu locytes (promyelocytes, myelocytes and metamyelocytes) > 1% indicates that a LEFT SHIFT is Present. Nucleated RBC/100 WBC (Bld) [Ratio] 0 % 0-5 [facility] Work Phone: No Panel InformationOrdered By: Dr. Moore on 03-22-2022 0.400 % 0.0-0.9 [facility] 0 % 0-5 [facility] No Panel InformationOrdered By: Dr. Curry on 03-22-2022 Negative [facility] Absolute lymphocyte countOrd ered By: Dr. Melgar on 03-04-2022 Lymphocytes Auto (Unsp spec) [#/Vol] 1.33 10*3/uL 0.83-4.51 [facility] Basophil percentageOrdered B y: Dr. Melgar on 03-04-2022 Basophil percentage 87 mg/dL 74-106 [facility] Basophil percentage 139 mmol/L 136-145 [facility] Basophil percentage 4.0 mmol/L 3.5-5.1 [facility] Basophil percentage 107 mmol/L 98-107 [facility] Basophils (Bld) [#/Vol] 5.5 10*3/uL 4.4-11.0 [facility] Basophils (Bld) [#/Vol] 3.4 10*3/uL 2.0-7.7 [facility] Basophils/100 WBC (Bld) 0.5 % 0-1 [facility] Basophils/100 WBC (Bld) 61.9 % 47-70 [facility] Basophils/100 WBC (Bld) 3.5 % 0-5 [facility] Basophil percentageon 2021 Chloride [Moles/Vol] 107 mmol/L 98-107 [facility] Work Phone: Eosinophils/100 WBC (Bld) 3.5 % 0-5 [facility] Work Phone: Glucose [Mass/Vol] 87 mg/dL 74-106 [facility] Work Phone: Neutrophils (Bld) [#/Vol] 3.4 10*3/uL 2.0-7.7 [facility] Work Phone: Neutrophils/100 WBC (Bld) 61.9 % 47-70 [facility] Work Phone: Potassium [Moles/Vol] 4.0 mmol/L 3.5-5.[address] [facility] Work Phone: Sodium [Moles/Vol] 139 mmol/L 136-145 [facility] Work Phone: WBC (Bld) [#/Vol] 5.5 10*3/uL 4.4-11.0 [facility] Work Phone: Blood erythrocytes count (nu mber/volume)Ordered By: Dr. Melgar on 03-04-2022 RBC (Bld) [#/Vol] 5.22 10*6/uL 4.2-5.4 [facility] Blood hemoglobin measurement (mass/volume)Ordered By: Dr. Melgar on 03-04-2022 Hemoglobin (Bld) [Mass/Vol] 15.2 g/dL 12.0-15.0 [facility] Blood lymphocytes/100 leukoc ytesOrdered By: Dr. Melgar on 03-04-2022 Lymphocytes/100 WBC (Bld) 24.4 % 19-41 [facility] Blood monocytes/100 leukocyt esOrdered By: Dr. Melgar on 03-04-2022 Monocytes/100 WBC (Bld) 9.5 % 0-10 [facility] Blood platelet mean volumeOr dered By: Dr. Melgar on 03-04-2022 Platelet mean volume (Bld) [Entitic vol] 11.1 fL 6.2-12.0 [facility] Determination of erythrocyte mean corpuscular volume (MCV)Ordered By: Dr. Melgar on 03-04-2022 MCV (RBC) [Entitic vol] 87.0 fL 81-99 [facility] Hematocrit Auto (Bld) [Volum e fraction]Ordered By: Dr. Melgar on 03-04-2022 Hematocrit (Bld) [Volume fraction] 45.4 % 37-47 [facility] Laboratory - Chemistry and C hemistry - challengeon 03-04-2022 CO2 [Moles/Vol] 27.0 mmol/L 21.0-32.0 [facility] Work Phone: Urea nitrogen/Creatinine [Mass ratio] 12.2 mg/mg 10-20 [facility] Work Phone: Laboratory - Hematology and Cell countson 03-04-2022 Erythrocyte distribution width (RBC) [Entitic vol] 39.7 fL 35.1-43.9 [facility] Work Phone: Erythrocyte distribution width (RBC) [Ratio] 12.5 % 11.6-14.6 [facility] Work Phone: Immature granulocytes/100 WBC (Bld) 0.200 % 0.0-0.9 [facility] Work Phone: Comment on above: IG% - Immature Granu locytes (promyelocytes, myelocytes and metamyelocytes) > 1% indicates that a LEFT SHIFT is Present. MCH (RBC) [Entitic mass] 29.1 pg 27.0-32.0 [facility] Work Phone: Nucleated RBC/100 WBC (Bld) [Ratio] 0 % 0-5 [facility] Work Phone: MCHC Auto (RBC) [Mass/Vol]Or dered By: Dr. Melgar on 03-04-2022 MCHC (RBC) [Mass/Vol] 33.5 g/dL 32-[address] [facility] No Panel Informationon 03-04 Estimated Creatinine Clearance Calc 86.99 ml/min [facility] Work Phone: Estimated GFR (MDRD) Amer 102 mL/min >60 [facility] Work Phone: Comment on above: GFR Calc Estimated GFR (MDRD) Non-Af Amer 84 mL/min >60 [facility] Work Phone: Comment on above: Non- GFR Calc No Panel InformationOrdered By: Dr. Melgar on 03-04-2022 29.1 pg 27.0-32.0 [facility] 12.5 % 11.6-14.6 [facility] 39.7 fl 35.1-43.9 [facility] 0.200 % 0.0-0.9 [facility] 0 % 0-5 [facility] 84 mL/min >60 [facility] 102 mL/min >60 [facility] 86.99 ml/min [facility] 12.2 RATIO 10-20 [facility] 27.0 mmol/L 21.0-32.0 [facility] Platelets bldOrdered By: Dr. Melgar on 03-04-2022 Platelets (Bld) [#/Vol] 182 10*3/uL 150-450 [facility] Serum or plasma calcium mg urement (mass/volume)Ordered By: Dr. Melgar on 03-04-2022 Calcium [Mass/Vol] 9.1 mg/dL 8.5-10.1 [facility] Serum or plasma creatinine m easurement (mass/volume)Ordered By: Dr. Melgar on 03-04-2022 Creatinine [Mass/Vol] 0.82 mg/dL 0.55-1.[address] [facility] Comment on above: The validity of the calculated GFR & GFRAA in patients over 70 years has not been determined. Clinical correlation is essential. Serum or plasma urea nitroge n measurement (mass/volume)Ordered By: Dr. Melgar on 03-04-2022 Urea nitrogen [Mass/Vol] 10 mg/dL 7-18 [facility] Thin prep Papanicolaou smear with manual screeningOrdered By: Dr. Melgar on 03-04-2022 Thin prep Papanicolaou smear with manual screening 5 5-15 [facility] Laboratory - Chemistry and C hemistry - challengeon 03-02-2022 Magnesium [Mass/Vol] 1.8 mg/dL 1.6-2.6 [facility] Work Phone: No Panel InformationOrdered By: Dr. Garcia on 03-02-2022 1.8 mg/dL 1.6-2.6 [facility] Bacteria identified Cx Nom ( U)Ordered By: Dr. Moore on 02-16-2022 Culture, urine Positive [facility] Absolute lymphocyte countOrd ered By: Dr. Moore on 02-15-2022 Lymphocytes Auto (Unsp spec) [#/Vol] 1.31 10*3/uL 0.83-4.51 [facility] Basophil percentageOrdered B y: Dr. Guzman on 02-15-2022 Basophil percentage 0-5 SEEN /hpf 0-5 [facility] Basophil percentageOrdered B y: Dr. Moore on 02-15-2022 Basophil percentage 101 mg/dL 74-106 [facility] Basophil percentage 7.3 g/dL 6.4-8.2 [facility] Basophil percentage 0.40 mg/dL 0.20-1.00 [facility] Basophil percentage 140 mmol/L 136-145 [facility] Basophil percentage 4.2 mmol/L 3.5-5.1 [facility] Basophil percentage 108 mmol/L 98-107 [facility] Basophils (Bld) [#/Vol] 4.7 10*3/uL 4.4-11.0 [facility] Basophils (Bld) [#/Vol] 2.7 10*3/uL 2.0-7.7 [facility] Basophils/100 WBC (Bld) 0.6 % 0-1 [facility] Basophils/100 WBC (Bld) 57.4 % 47-70 [facility] Basophils/100 WBC (Bld) 3.6 % 0-5 [facility] Basophil percentageon 2021 Bilirubin [Mass/Vol] 0.40 mg/dL 0.20-1.00 [facility] Work Phone: Comment on above: For patients on eltr ombopag therapy, use of Dimension Zillah TBIL is not recommended. Chloride [Moles/Vol] 108 mmol/L 98-107 [facility] Work Phone: Eosinophils/100 WBC (Bld) 3.6 % 0-5 [facility] Work Phone: Glucose [Mass/Vol] 101 mg/dL 74-106 [facility] Work Phone: [phone] Comment on above: Fasting Glucose resu lt from 100 to 125 mg/dL suggests IMPAIRED HOMEOSTASIS per A.D.A. criteria. Neutrophils (Bld) [#/Vol] 2.7 10*3/uL 2.0-7.7 [facility] Work Phone: [phone] Neutrophils/100 WBC (Bld) 57.4 % 47-70 [facility] Work Phone: [phone] Potassium [Moles/Vol] 4.2 mmol/L 3.5-5.[address] [facility] Work Phone: [phone] Protein [Mass/Vol] 7.3 g/dL 6.4-8.2 [facility] Work Phone: Sodium [Moles/Vol] 140 mmol/L 136-145 [facility] Work Phone: WBC (Bld) [#/Vol] 4.7 10*3/uL 4.4-11.0 [facility] Work Phone: Bilirubin Test strip Ql (U)O rdered By: Dr. Guzman on 02-15-2022 Bilirubin Ql (U) Negative Negative [facility] Blood erythrocytes count (nu mber/volume)Ordered By: Dr. Moore on 02-15-2022 RBC (Bld) [#/Vol] 4.94 10*6/uL 4.2-5.4 [facility] Blood hemoglobin measurement (mass/volume)Ordered By: Dr. Moore on 02-15-2022 Hemoglobin (Bld) [Mass/Vol] 13.9 g/dL 12.0-15.0 [facility] Blood lymphocytes/100 leukoc ytesOrdered By: Dr. Moore on 02-15-2022 Lymphocytes/100 WBC (Bld) 28.1 % 19-41 [facility] Blood monocytes/100 leukocyt esOrdered By: Dr. Moore on 02-15-2022 Monocytes/100 WBC (Bld) 10.1 % 0-10 [facility] Blood platelet mean volumeOr dered By: Dr. Moore on 02-15-2022 Platelet mean volume (Bld) [Entitic vol] 11.0 fL 6.2-12.0 [facility] Determination of erythrocyte mean corpuscular volume (MCV)Ordered By: Dr. Moore on 02-15-2022 MCV (RBC) [Entitic vol] 87.4 fL 81-99 [facility] Hematocrit Auto (Bld) [Volum e fraction]Ordered By: Dr. Moore on 02-15-2022 Hematocrit (Bld) [Volume fraction] 43.2 % 37-47 [facility] Ketones Test strip Ql (U)Ord ered By: Dr. Guzman on 02-15-2022 Ketones Ql (U) Negative Negative [facility] Laboratory - Chemistry and C hemistry - challengeon 02-15-2022 HCG ( test) Ql (U) Negative [facility] Work Phone: Comment on above: Very dilute urine sp ecimens, as indicated by a low specificgravity, may not contain enrollment representative levels of hCG. If is still suspected, a first morning urinespecimen should be collected 48 hours later and tested. ALP [Catalytic activity/Vol] 62 U/L 45-117 [facility] Work Phone: ALT [Catalytic activity/Vol] 21 U/L 13-56 [facility] Work Phone: CO2 [Moles/Vol] 29.0 mmol/L 21.0-32.0 [facility] Work Phone: Globulin (S) [Mass/Vol] 3.5 g/dL 2.2-4.2 [facility] Work Phone: Urea nitrogen/Creatinine [Mass ratio] 10.7 mg/mg 10-20 [facility] Work Phone: Laboratory - Hematology and Cell countson 02-15-2022 Erythrocyte distribution width (RBC) [Entitic vol] 40.2 fL 35.1-43.9 [facility] Work Phone: Erythrocyte distribution width (RBC) [Ratio] 12.6 % 11.6-14.6 [facility] Work Phone: Immature granulocytes/100 WBC (Bld) 0.200 % 0.0-0.9 [facility] Work Phone: Comment on above: IG% - Immature Granu locytes (promyelocytes, myelocytes and metamyelocytes) > 1% indicates that a LEFT SHIFT is Present. MCH (RBC) [Entitic mass] 28.1 pg 27.0-32.0 [facility] Work Phone: Nucleated RBC/100 WBC (Bld) [Ratio] 0 % 0-5 [facility] Work Phone: MCHC Auto (RBC) [Mass/Vol]Or dered By: Dr. Moore on 02-15-2022 MCHC (RBC) [Mass/Vol] 32.2 g/dL 32-[address] [facility] Mucus LM Ql (Urine sed)Order ed By: Dr. Guzman on 02-15-2022 Mucus Ql (Urine sed) 0 SEEN /hpf [facility] Nitrite Test strip Ql (U)Ord ered By: Dr. Guzman on 02-15-2022 Nitrite Ql (U) Negative Negative [facility] No Panel InformationOrdered By: Dr. Guzman on 02-15-2022 Negative [facility] No Panel Informationon 02-15 Estimated GFR (MDRD) Amer 114 mL/min >60 [facility] Work Phone: Comment on above: GFR Calc Estimated GFR (MDRD) Non-Af Amer 94 mL/min >60 [facility] Work Phone: Comment on above: Non- GFR Calc Thyroid Stimulating Hormone (TSH) 0.62 uIU/mL 0.358-3.74 [facility] Work Phone: No Panel InformationOrdered By: Dr. Moore on 02-15-2022 28.1 pg 27.0-32.0 [facility] 12.6 % 11.6-14.6 [facility] 40.2 fl 35.1-43.9 [facility] 0.200 % 0.0-0.9 [facility] 0 % 0-5 [facility] 94 mL/min >60 [facility] 114 mL/min >60 [facility] 10.7 RATIO 10-20 [facility] 3.5 g/dL 2.2-4.2 [facility] 62 U/L 45-117 [facility] 21 U/L 13-56 [facility] 29.0 mmol/L 21.0-32.0 [facility] 0.62 uIU/mL 0.358-3.74 [facility] Platelets bldOrdered By: Dr. Moore on 02-15-2022 Platelets (Bld) [#/Vol] 175 10*3/uL 150-450 [facility] Protein Test strip Ql (U)Ord ered By: Dr. Guzman on 02-15-2022 Protein Ql (U) Negative Negative [facility] Serum or plasma albumin mg urement (mass/volume)Ordered By: Dr. Moore on 02-15-2022 Albumin [Mass/Vol] 3.8 g/dL 3.2-5.0 [facility] Serum or plasma albumin/glob ulin mass ratioOrdered By: Dr. Moore on 02-15-2022 Albumin/Globulin [Mass ratio] 1.1 {ratio} 0.9-2.4 [facility] Serum or plasma calcium mg urement (mass/volume)Ordered By: Dr. Moore on 02-15-2022 Calcium [Mass/Vol] 9.1 mg/dL 8.5-10.1 [facility] Serum or plasma creatinine m easurement (mass/volume)Ordered By: Dr. Moore on 02-15-2022 Creatinine [Mass/Vol] 0.75 mg/dL 0.55-1.[address] [facility] Comment on above: The validity of the calculated GFR & GFRAA in patients over 70 years has not been determined. Clinical correlation is essential. Serum or plasma urea nitroge n measurement (mass/volume)Ordered By: Dr. Moore on 02-15-2022 Urea nitrogen [Mass/Vol] 8 mg/dL 7-18 [facility] Squamous epithelial cells de tection in urine sediment by light microscopyOrdered By: Dr. Guzman on 02-15-2022 Epithelial cells.squamous LM Ql (Urine sed) 5-10 SEEN /hpf 5-10 [facility] Thin prep Papanicolaou smear with manual screeningOrdered By: Dr. Moore on 02-15-2022 Thin prep Papanicolaou smear with manual screening 11 U/L 15-37 [facility] Thin prep Papanicolaou smear with manual screening 3 5-15 [facility] Urine blood detectionOrdered By: Dr. Guzman on 02-15-2022 RBC Ql (U) Negative Negative [facility] RBC Ql (U) 0 SEEN /hpf 0-5 [facility] Urine clarityOrdered By: Dr. Guzman on 02-15-2022 Clarity (U) Sl. Cloudy Clear [facility] Urine color determinationOrd ered By: Dr. Guzman on 02-15-2022 Color (U) Yellow Yellow [facility] Urine glucose detectionOrder ed By: Dr. Guzman on 02-15-2022 Glucose Ql (U) Normal mg/dl Normal [facility] Urine leukocyte esterase det ection by dipstickOrdered By: Dr. Guzman on 02-15-2022 Leukocyte esterase Test strip Ql (U) 25 /ul Negative [facility] Urine pHOrdered By: Dr. Guzman o n 02-15-2022 pH (U) 6.0 [pH] 5.0 - 8.0 [facility] Urine sediment bacteria coun t by microscopy (number/high power field)Ordered By: Dr. Guzman on 02-15-2022 Bacteria LM.HPF (Urine sed) [#/Area] 1 /[HPF] None Seen [facility] Urine specific gravity measu rementOrdered By: Dr. Guzman on 02-15-2022 Specific gravity (U) [Rel density] 1.015 1.002-1.030 [facility] Urobilinogen Auto test strip Ql (U)Ordered By: Dr. Guzman on 02-15-2022 Urobilinogen Ql (U) Normal mg/dl Normal [facility] Whole blood hemoglobin A1c/t otal hemoglobin ratio (mass fraction)Ordered By: Dr. Moore on 02-15-2022 HbA1c (Bld) [Mass fraction] 5.5 % 3.8-5.6 [facility] Comment on above: Normal < 5.7 % Predi abetic 5.7 - 6.4 % Diabetic >or= 6.5 % Please note range changes. Atypical perinuclear antineu trophil cytoplasmic antibodies measurementon 01-13-2022 Neutrophil cytoplasmic Ab.perinuclear.atypical IF (S) [Titer] <1:20 titer Neg:<1:20 [facility] Work Phone: Comment on above: The atypical pANCA p attern has been observed in asignificant percentage of patients with ulcerative colitis,primary sclerosing cholangitis and autoimmune hepatitis. Basophil percentageon 2021 Ammonia (P) [Moles/Vol] 15.0 umol/L 11-32 [facility] Work Phone: Basophil percentage < 0.2 AI 0.0-0.9 [facility] Work Phone: Cholesterol [Mass/Vol] 220 mg/dL <200 [facility] Work Phone: Comment on above: <200 mg/dL Desirable 200-240 mg/dL Borderline >240 mg/dL High Risk Triglyceride [Mass/Vol] 175 mg/dL <199 [facility] Work Phone: Comment on above: The drugs N-Acetylcy steine and Metamizole may falsely depress this assay.Serum Triglycerides Reference Interval Normal <150 mg/dL Borderline high 150 - 199 mg/dL High 200 - 499 mg/dL Very High > or = 500 mg/dL Erythrocyte sedimentation ra funmi 01-13-2022 ESR (Bld) [Velocity] 6 mm/h 0-30 [facility] Work Phone: [phone] HIV 1 and HIV-2 antibody ass ay with HIV-1 p24 antigen detectionon 01-13-2022 HIV 1+2 Ab+HIV1 p24 Ag IA Ql Non-Reactive Nonreactive [facility] Work Phone: [phone] INR in Blood by Coagulation assayon 01-13-2022 INR Coag (Bld) [Relative time] 1.0 {INR} [facility] Work Phone: [phone] Laboratory - Coagulationon 0 01-13-2022 PT Coag (PPP) [Time] 12.6 s 11.7-14.9 [facility] Work Phone: [phone] Panel Informationon 01-13 Centromere B Antibody <0.2 AI 0.0-0.[address] [facility] Work Phone: [phone] Ceruloplasmin 22.7 mg/dL 19.0-39.0 [facility] Work Phone: [phone] Haptoglobin 142 mg/dL 33-278 [facility] Work Phone: [phone] Comment on above: Performed at: [address] [id number] Director: Viraj Sandoval PhD, Phone: [phone] at: [facility] [address] [id number] Director: Emily Bacon MD, Phone: [phone] Hepatitis A IgM Antibody Negative Negative [facility] Work Phone: [phone] Hepatitis B Core IgM Antibody Negative Negative [facility] Work Phone: [phone] Hepatitis C Antibody (EIA) <0.1 s/co ratio 0.0-0.9 [facility] Work Phone: [phone] Hepatitis C Antibody Comment Comment . [facility] Work Phone: [phone] Comment on above: NegativeNot infected with HCV, unless recent infection issuspected or other evidence exists to indicate HCVinfection. [employer] Antibody 0.3 AI 0.0-0.9 [facility] Work Phone: [phone] Thyroid Stimulating Hormone (TSH) 0.59 uIU/mL 0.358-3.74 [facility] Work Phone: Serum DNA double strand anti body assay (units/volume)on 01-13-2022 DNA double strand Ab Qn (S) 1 [IU]/mL 0-9 [facility] Work Phone: Comment on above: Negative <5 Equivoca l 5 - 9 Positive >9 Serum Alise-1 antibody assay (u nits/volume)on 01-13-2022 Alise-1 extractable nuclear Ab Qn (S) <0.2 AI 0.0-0.9 [facility] Work Phone: Serum Scl-70 extractable nuc lear antibody assay (units/volume)on 01-13-2022 SCL-70 extractable nuclear Ab Qn (S) <0.2 AI 0.0-0.9 [facility] Work Phone: Serum Freedman extractable nucl ear antibody detectionon 01-13-2022 Freedman extractable nuclear Ab Ql (S) <0.2 AI 0.0-0.9 [facility] Work Phone: Serum classic neutrophil cyt oplasmic antibody assay (units/volume)on 01-13-2022 Neutrophil cytoplasmic Ab.classic Qn (S) <1:20 titer Neg:<1:20 [facility] Work Phone: Serum mitochondria antibody detectionon 01-13-2022 Mitochondria Ab Ql (S) <20.0 Units 0.0-20.0 [facility] Work Phone: Comment on above: Negative 0.0 - 20.0 Equivocal 20.1 - 24.9 Positive >24.9Mitochondrial (M2) Antibodies are found in 90-96% ofpatients with primary biliary cirrhosis.Performed at: [facility] [employer] [id number] Director: Viraj Sandoval PhD, Phone: [phone] Serum or plasma C reactive p rotein measurement (mass/volume)on 01-13-2022 CRP [Mass/Vol] mg/L 0.0-3.0 [facility] Work Phone: Comment on above: C-Reactive Protein ( CRP) provides useful information for thediagnosis, therapy and monitoring of inflammatory processesand associated diseases. For the evaluation of Relative Riskfor Cardiovascular Disease, a High Sensitivity CRP (HSCRP)should be ordered. Serum or plasma actin IgG an tibody assay (units/volume)on 01-13-2022 Actin IgG Qn 5 Units 0-19 [facility] Work Phone: Comment on above: Negative 0 - 19 Weak positive 20 - 30 Moderate to strong positive >30 Actin Antibodies are found in 52-85% of patients with autoimmune hepatitis or chronic active hepatitis and in 22% of patients with primary biliary cirrhosis. Serum or plasma [id number]-[id number] protein tumor marker measurement (units/volume)on 01-13-2022 AFP.tumor marker Qn 2.5 ng/mL 0.0-6.4 [facility] Work Phone: Comment on above: [employer] El ectrochemiluminescence Immunoassay(ECLIA)Values obtained with different assay methods or kits cannotbe used interchangeably. Results cannot be interpreted asabsolute evidence of the presence or absence of malignantdisease.This test is not interpretable in females. Serum or plasma angiotensin converting enzyme measurement (enzymatic activity/volume)on 01-13-2022 Angiotensin converting enzyme [Catalytic activity/Vol] 24 U/L 14-82 [facility] Work Phone: Serum or plasma cholesterol in HDL measurement (mass/volume)on 01-13-2022 Cholesterol in HDL [Mass/Vol] 42 mg/dL >40 [facility] Work Phone: Comment on above: The drugs N-Acetylcy steine and Metamizole may falsely depress this assay. Reference Range HDL <40 mg/dL Low HDL Cholesterol HDL >or= 60 mg/dL High HDL Cholesterol Serum or plasma cholesterol in VLDL measurement (mass/volume)on 01-13-2022 Cholesterol in VLDL [Mass/Vol] 35 mg/dL 5-40 [facility] Work Phone: Serum or plasma ferritin adriana surement (mass/volume)on 01-13-2022 Ferritin [Mass/Vol] 19 ng/mL 8-252 [facility] Work Phone: Serum or plasma hepatitis B virus surface antigen detection by immunoassayon 01-13-2022 HBV surface Ag IA Ql Negative Negative [facility] Work Phone: Serum or plasma low density lipoprotein (LDL) cholesterol measurement (mass/volume)on 01-13-2022 Cholesterol in LDL [Mass/Vol] 143 mg/dL 0-130 [facility] Work Phone: Serum perinuclear neutrophil cytoplasmic antibody titer by immunofluorescenceon 01-13-2022 Neutrophil cytoplasmic Ab.perinuclear IF (S) [Titer] <1:20 titer Neg:<1:20 [facility] Work Phone: Comment on above: The presence of posi tive fluorescence exhibiting P-ANCA orC-ANCA patterns alone is not specific for the diagnosis ofWegener's Granulomatosis (WG) or microscopic polyangiitis.Decisions about treatment should not be based solely onANCA IFA results. The [employer] ANCA Group Consensusrecommends follow up testing of positive sera with both AR-3 and MPO-ANCA enzyme immunoassays. As many as 5% serumsamples are positive only by EIA. Ref. AM J Clin [id number];111:507-513. Thin prep Papanicolaou smear with manual screeningon 01-13-2022 Thin prep Papanicolaou smear with manual screening 164 U/L 84-246 [facility] Work Phone: Thin prep Papanicolaou smear with manual screening 109 ug/dL 80-158 [facility] Work Phone: Comment on above: Detection Limit = 5 Whole blood hemoglobin A1c/t otal hemoglobin ratio (mass fraction)on 01-13-2022 HbA1c (Bld) [Mass fraction] 5.4 % 3.8-5.6 [facility] Work Phone: Comment on above: Normal < 5.7 % Predi abetic 5.7 - 6.4 % Diabetic >or= 6.5 % Please note range changes. No Panel Informationon 01-03 Stool Neutral Fats Normal . [facility] Work Phone: Comment on above: Normal (<60 Droplets /HPF) Stool Pancreatic Elastase > 500 >200 [facility] Work Phone: Comment on above: Result Units: ug Pooja st./g Severe Pancreatic Insufficiency: <100 Moderate Pancreatic Insufficiency: 100 - 200 Normal: >200Performed at: [facility] [address] [id number] Director: Emily Bacon MD, Phone: [phone] Qualitative fecal fat or lip idson 01-03-2022 Fat Ql (Stl) Normal . [facility] Work Phone: Comment on above: Normal (<100 Droplet s/HPF)Performed at: [facility] [address] [id number] Director: Viraj Sandoval PhD, Phone: [phone] Absolute lymphocyte counton 12-23-2021 Lymphocytes Auto (Unsp spec) [#/Vol] 2.19 10*3/uL 0.83-4.51 [facility] Work Phone: Basophil percentageon 2021 Basophils/100 WBC (Bld) 0.5 % 0-1 [facility] Work Phone: [phone] Bilirubin [Mass/Vol] 0.30 mg/dL 0.20-1.00 [facility] Work Phone: Comment on above: For patients on eltr ombopag therapy, use of Dimension Zillah TBIL is not recommended. Chloride [Moles/Vol] 106 mmol/L 98-107 [facility] Work Phone: Eosinophils/100 WBC (Bld) 4.8 % 0-5 [facility] Work Phone: [phone] Glucose [Mass/Vol] 111 mg/dL 74-106 [facility] Work Phone: [phone] Comment on above: Fasting Glucose resu lt from 100 to 125 mg/dL suggests IMPAIRED HOMEOSTASIS per A.D.A. criteria. Neutrophils (Bld) [#/Vol] 3.0 10*3/uL 2.0-7.7 [facility] Work Phone: Neutrophils/100 WBC (Bld) 49.1 % 47-70 [facility] Work Phone: Potassium [Moles/Vol] 3.5 mmol/L 3.5-5.1 [facility] Work Phone: Protein [Mass/Vol] 7.5 g/dL 6.4-8.2 [facility] Work Phone: Sodium [Moles/Vol] 138 mmol/L 136-145 [facility] Work Phone: WBC (Bld) [#/Vol] 6.1 10*3/uL 4.4-11.0 [facility] Work Phone: Basophil percentage 0-5 SEEN /hpf 0-5 [place] [facility] Work Phone: Beta hCG serum qualon 2021 Beta HCG ( test) Ql Negative [facility] Work Phone: Bilirubin Test strip Ql (U)o n 12-23-2021 Bilirubin Ql (U) Negative Negative [facility] Work Phone: Blood erythrocytes count (nu mber/volume)on 12-23-2021 RBC (Bld) [#/Vol] 4.87 10*6/uL 4.2-5.4 [facility]: Blood hemoglobin measurement (mass/volume)on 12-23-2021 Hemoglobin (Bld) [Mass/Vol] 13.7 g/dL 12.0-15.0 [facility] Work Phone: Blood lymphocytes/100 leukoc yteson 12-23-2021 Lymphocytes/100 WBC (Bld) 36.1 % 19-41 [facility] Work Phone: Blood monocytes/100 leukocyt eson 12-23-2021 Monocytes/100 WBC (Bld) 9.2 % 0-10 [facility] Work Phone: Blood platelet mean volumeon 12-23-2021 Platelet mean volume (Bld) [Entitic vol] 11.1 fL 6.2-12.0 [facility] Work Phone: [phone] Determination of erythrocyte mean corpuscular volume (MCV)on 12-23-2021 MCV (RBC) [Entitic vol] 87.5 fL 81-99 [facility] Work Phone: [phone] Hematocrit Auto (Bld) [Volum e fraction]on 12-23-2021 Hematocrit (Bld) [Volume fraction] 42.6 % 37-47 [facility] Work Phone: [phone] Ketones Test strip Ql (U)on 12-23-2021 Ketones Ql (U) Negative Negative [facility] Work Phone: [phone] Laboratory - Chemistry and C hemistry - challengeon 12-23-2021 ALP [Catalytic activity/Vol] 54 U/L 45-117 [facility] Work Phone: [phone] ALT [Catalytic activity/Vol] 19 U/L 13-56 [facility] Work Phone: [phone] CO2 [Moles/Vol] 27.0 mmol/L 21.0-32.0 [facility] Work Phone: [phone] Globulin (S) [Mass/Vol] 3.6 g/dL 2.2-4.2 [facility] Work Phone: [phone] Lipase [Catalytic activity/Vol] 98 U/L 73-393 [facility] Work Phone: [phone] Urea nitrogen/Creatinine [Mass ratio] 11.9 mg/mg 10-20 [facility] Work Phone: [phone] Laboratory - Hematology and Cell countson 12-23-2021 Erythrocyte distribution width (RBC) [Entitic vol] 42.2 fL 35.1-43.9 [facility] Work Phone: [phone] Erythrocyte distribution width (RBC) [Ratio] 13.3 % 11.6-14.6 [facility] Work Phone: [phone] Immature granulocytes/100 WBC (Bld) 0.300 % 0.0-0.9 [facility] Work Phone: [phone] Comment on above: IG% - Immature Granu locytes (promyelocytes, myelocytes and metamyelocytes) > 1% indicates that a LEFT SHIFT is Present. MCH (RBC) [Entitic mass] 28.1 pg 27.0-32.0 [facility] Work Phone: [phone] Nucleated RBC/100 WBC (Bld) [Ratio] 0 % 0-5 [facility] Work Phone: [phone] MCHC Auto (RBC) [Mass/Vol]on 12-23-2021 MCHC (RBC) [Mass/Vol] 32.2 g/dL 32-[address] [facility] Work Phone: Mucus LM Ql (Urine sed)on Mucus Ql (Urine sed) 0 SEEN /hpf [facility] Work Phone: [phone] Nitrite Test strip Ql (U)on 12-23-2021 Nitrite Ql (U) Negative Negative [facility] Work Phone: [phone] Panel Informationon 12-23 Estimated Creatinine Clearance Calc 88.34 ml/min [facility] Work Phone: [phone] Estimated GFR (MDRD) Amer 100 mL/min >60 [facility] Work Phone: [phone] Comment on above: GFR Calc Estimated GFR (MDRD) Non-Af Amer 83 mL/min >60 [facility] Work Phone: [phone] Comment on above: Non- GFR Calc Platelets bldon 12-23-2021 Platelets (Bld) [#/Vol] 184 10*3/uL 150-450 [facility] Work Phone: [phone] Protein Test strip Ql (U)on 12-23-2021 Protein Ql (U) Negative Negative [facility] Work Phone: [phone] Serum or plasma albumin mg urement (mass/volume)on 12-23-2021 Albumin [Mass/Vol] 3.9 g/dL 3.2-5.0 [facility] Work Phone: [phone] Serum or plasma albumin/glob ulin mass ratioon 12-23-2021 Albumin/Globulin [Mass ratio] 1.1 {ratio} 0.9-2.4 [facility] Work Phone: Serum or plasma calcium mg urement (mass/volume)on 12-23-2021 Calcium [Mass/Vol] 9.2 mg/dL 8.5-10.1 [facility] Work Phone: Serum or plasma creatinine m easurement (mass/volume)on 12-23-2021 Creatinine [Mass/Vol] 0.84 mg/dL 0.55-1.[address] [facility] Work Phone: Comment on above: The validity of the calculated GFR & GFRAA in patients over 70 years has not been determined. Clinical correlation is essential. Serum or plasma urea nitroge n measurement (mass/volume)on 12-23-2021 Urea nitrogen [Mass/Vol] 10 mg/dL 7-18 [facility] Work Phone: Squamous epithelial cells de tection in urine sediment by light microscopyon 12-23-2021 Epithelial cells.squamous LM Ql (Urine sed) 0-5 SEEN /hpf 5-10 [facility] Work Phone: Thin prep Papanicolaou smear with manual screeningon 12-23-2021 Thin prep Papanicolaou smear with manual screening 11 U/L 15-37 [facility] Work Phone: [phone] Thin prep Papanicolaou smear with manual screening 5 5-15 [facility] Work Phone: Urine blood detectionon 08- RBC Ql (U) Negative Negative [facility] Work Phone: RBC Ql (U) 0-5 SEEN /hpf 0-5 [facility] Work Phone: Urine clarityon 12-23-2021 Clarity (U) Clear Clear [facility] Work Phone: Urine color determinationon 12-23-2021 Color (U) Yellow Yellow [facility] Work Phone: [phone] Urine glucose detectionon Glucose Ql (U) Normal mg/dl Normal [facility] Work Phone: [phone] Urine leukocyte esterase det ection by dipstickon 12-23-2021 Leukocyte esterase Test strip Ql (U) Negative Negative [facility] Work Phone: Urine pHon 12-23-2021 pH (U) 6.0 [pH] 5.0 - 8.0 [facility] Work Phone: Urine sediment bacteria coun t by microscopy (number/high power field)on 12-23-2021 Bacteria LM.HPF (Urine sed) [#/Area] 1 /[HPF] None Seen [facility] Work Phone: Urine specific gravity measu rementon 12-23-2021 Specific gravity (U) [Rel density] 1.020 1.002-1.030 [facility] Work Phone: Urobilinogen Auto test strip Ql (U)on 12-23-2021 Urobilinogen Ql (U) Normal mg/dl Normal [facility] Work Phone: Absolute lymphocyte counton 11-27-2021 Lymphocytes Auto (Unsp spec) [#/Vol] 1.49 10*3/uL 0.83-4.51 [facility] Work Phone: Basophil percentageon 2021 Basophils/100 WBC (Bld) 0.3 % 0-1 [facility] Work Phone: Chloride [Moles/Vol] 105 mmol/L 98-107 [facility] Work Phone: Eosinophils/100 WBC (Bld) 2.8 % 0-5 [facility] Work Phone: Glucose [Mass/Vol] 120 mg/dL 74-106 [facility] Work Phone: Comment on above: Fasting Glucose resu lt from 100 to 125 mg/dL suggests IMPAIRED HOMEOSTASIS per A.D.A. criteria. Neutrophils (Bld) [#/Vol] 3.5 10*3/uL 2.0-7.7 [facility] Work Phone: Neutrophils/100 WBC (Bld) 60.9 % 47-70 [facility] Work Phone: Potassium [Moles/Vol] 4.4 mmol/L 3.5-5.1 [facility] Work Phone: Comment on above: Moderate Hemolysis, Result may be falsely increased. Sodium [Moles/Vol] 138 mmol/L 136-145 [facility] Work Phone: [phone] WBC (Bld) [#/Vol] 5.8 10*3/uL 4.4-11.0 [facility] Work Phone: [phone] Blood erythrocytes count (nu mber/volume)on 11-27-2021 RBC (Bld) [#/Vol] 4.59 10*6/uL 4.2-5.[facility] Blood hemoglobin measurement (mass/volume)on 11-27-2021 Hemoglobin (Bld) [Mass/Vol] 12.8 g/dL 12.0-15.0 [facility] Work Phone: Blood lymphocytes/100 leukoc yteson 11-27-2021 Lymphocytes/100 WBC (Bld) 25.8 % 19-41 [facility] Work Phone: Blood monocytes/100 leukocyt eson 11-27-2021 Monocytes/100 WBC (Bld) 9.9 % 0-10 [facility] Work Phone: Blood platelet mean volumeon 11-27-2021 Platelet mean volume (Bld) [Entitic vol] 11.4 fL 6.2-12.0 [facility] Work Phone: Determination of erythrocyte mean corpuscular volume (MCV)on 11-27-2021 MCV (RBC) [Entitic vol] 86.9 fL 81-99 [facility] Work Phone: Hematocrit Auto (Bld) [Volum e fraction]on 11-27-2021 Hematocrit (Bld) [Volume fraction] 39.9 % 37-47 [facility] Work Phone: Laboratory - Chemistry and C hemistry - challengeon 11-27-2021 CO2 [Moles/Vol] 30.0 mmol/L 21.0-32.0 [facility] Work Phone: [phone] Magnesium [Mass/Vol] 1.9 mg/dL 1.6-2.6 [facility] Work Phone: [phone] Comment on above: Moderate Hemolysis, Result may be falsely increased. Urea nitrogen/Creatinine [Mass ratio] 9.8 mg/mg 10-20 [facility] Work Phone: [phone] Laboratory - Hematology and Cell countson 11-27-2021 Erythrocyte distribution width (RBC) [Entitic vol] 41.5 fL 35.1-43.9 [facility] Work Phone: [phone] Erythrocyte distribution width (RBC) [Ratio] 13.2 % 11.6-14.6 [facility] Work Phone: [phone] Immature granulocytes/100 WBC (Bld) 0.300 % 0.0-0.9 [facility] Work Phone: [phone] Comment on above: IG% - Immature Granu locytes (promyelocytes, myelocytes and metamyelocytes) > 1% indicates that a LEFT SHIFT is Present. MCH (RBC) [Entitic mass] 27.9 pg 27.0-32.0 [facility] Work Phone: [phone] Nucleated RBC/100 WBC (Bld) [Ratio] 0 % 0-5 [facility] Work Phone: [phone] MCHC Auto (RBC) [Mass/Vol]on 11-27-2021 MCHC (RBC) [Mass/Vol] 32.1 g/dL 32-[address] [facility] Work Phone: [phone] Panel Informationon 11-27 Estimated Creatinine Clearance Calc 90.50 ml/min [facility] Work Phone: [phone] Estimated GFR (MDRD) Amer 102 mL/min >60 [facility] Work Phone: [phone] Comment on above: GFR Calc Estimated GFR (MDRD) Non-Af Amer 85 mL/min >60 [facility] Work Phone: [phone] Comment on above: Non- GFR Calc Thyroid Stimulating Hormone (TSH) 4.97 uIU/mL 0.358-3.74 [facility] Work Phone: Platelets bldon 11-27-2021 Platelets (Bld) [#/Vol] 168 10*3/uL 150-450 [facility] Work Phone: Serum or plasma calcium mg urement (mass/volume)on 11-27-2021 Calcium [Mass/Vol] 8.9 mg/dL 8.5-10.1 [facility] Work Phone: Serum or plasma creatinine m easurement (mass/volume)on 11-27-2021 Creatinine [Mass/Vol] 0.82 mg/dL 0.55-1.[address] [facility] Work Phone: Comment on above: The validity of the calculated GFR & GFRAA in patients over 70 years has not been determined. Clinical correlation is essential. Serum or plasma urea nitroge n measurement (mass/volume)on 11-27-2021 Urea nitrogen [Mass/Vol] 8 mg/dL 7-18 [facility] Work Phone: Thin prep Papanicolaou smear with manual screeningon 11-27-2021 Thin prep Papanicolaou smear with manual screening 3 5-15 [facility] Work Phone: Absolute lymphocyte counton 08-20-2021 Lymphocytes Auto (Unsp spec) [#/Vol] 1.34 10*3/uL 0.83-4.51 [facility] Work Phone: Basophil percentageon 2021 Basophil percentage 0 SEEN /hpf 0-5 [facility] Work Phone: Basophils/100 WBC (Bld) 0.8 % 0-1 [facility] Work Phone: [phone] Bilirubin [Mass/Vol] 0.30 mg/dL 0.20-1.00 [facility] Work Phone: Comment on above: For patients on eltr ombopag therapy, use of Dimension [place] TBIL is not recommended. Chloride [Moles/Vol] 107 mmol/L 98-107 [facility] Work Phone: Eosinophils/100 WBC (Bld) 2.8 % 0-5 [facility] Work Phone: Glucose [Mass/Vol] 87 mg/dL 74-106 [facility] Work Phone: Neutrophils (Bld) [#/Vol] 3.0 10*3/uL 2.0-7.7 [facility] Work Phone: Neutrophils/100 WBC (Bld) 59.5 % 47-70 [facility] Work Phone: Potassium [Moles/Vol] 3.8 mmol/L 3.5-5.[address] [facility] Work Phone: Protein [Mass/Vol] 7.9 g/dL 6.4-8.2 [facility] Work Phone: Sodium [Moles/Vol] 137 mmol/L 136-145 [facility] Work Phone: WBC (Bld) [#/Vol] 5.0 10*3/uL 4.4-11.0 [facility] Work Phone: Beta hCG serum qualon 2021 Beta HCG ( test) Ql Negative [facility] Work Phone: Bilirubin Test strip Ql (U)o n 08-20-2021 Bilirubin Ql (U) Negative Negative [facility] Work Phone: Blood erythrocytes count (nu mber/volume)on 08-20-2021 RBC (Bld) [#/Vol] 5.32 10*6/uL 4.2-5.4 [facility] Work Phone: Blood hemoglobin measurement (mass/volume)on 08-20-2021 Hemoglobin (Bld) [Mass/Vol] 14.6 g/dL 12.0-15.0 [facility] Work Phone: Blood lymphocytes/100 leukoc yteson 08-20-2021 Lymphocytes/100 WBC (Bld) 27.0 % 19-41 [facility] Work Phone: Blood monocytes/100 leukocyt eson 08-20-2021 Monocytes/100 WBC (Bld) 9.7 % 0-10 [facility] Work Phone: Blood platelet mean volumeon 08-20-2021 Platelet mean volume (Bld) [Entitic vol] 11.4 fL 6.2-12.0 [facility] Work Phone: [phone] Determination of erythrocyte mean corpuscular volume (MCV)on 08-20-2021 MCV (RBC) [Entitic vol] 84.2 fL 81-99 [facility] Work Phone: [phone] Hematocrit Auto (Bld) [Volum e fraction]on 08-20-2021 Hematocrit (Bld) [Volume fraction] 44.8 % 37-47 [facility] Work Phone: [phone] Ketones Test strip Ql (U)on 08-20-2021 Ketones Ql (U) Negative Negative [facility] Work Phone: Laboratory - Chemistry and C hemistry - challengeon 08-20-2021 ALP [Catalytic activity/Vol] 65 U/L 45-117 [facility] Work Phone: [phone] ALT [Catalytic activity/Vol] 30 U/L 13-56 [facility] Work Phone: [phone] CO2 [Moles/Vol] 26.0 mmol/L 21.0-32.0 [facility] Work Phone: Globulin (S) [Mass/Vol] 3.8 g/dL 2.2-4.2 [facility] Work Phone: [phone] Lipase [Catalytic activity/Vol] 119 U/L 73-393 [facility] Work Phone: [phone] Urea nitrogen/Creatinine [Mass ratio] 7.6 mg/mg 10-20 [facility] Work Phone: [phone] Laboratory - Hematology and Cell countson 08-20-2021 Erythrocyte distribution width (RBC) [Entitic vol] 41.4 fL 35.1-43.9 [facility] Work Phone: Erythrocyte distribution width (RBC) [Ratio] 13.5 % 11.6-14.6 [facility] Work Phone: [phone] Immature granulocytes/100 WBC (Bld) 0.200 % 0.0-0.9 [facility] Work Phone: [phone] Comment on above: IG% - Immature Granu locytes (promyelocytes, myelocytes and metamyelocytes) > 1% indicates that a LEFT SHIFT is Present. MCH (RBC) [Entitic mass] 27.4 pg 27.0-32.0 [facility] Work Phone: Nucleated RBC/100 WBC (Bld) [Ratio] 0 % 0-5 [facility] Work Phone: [phone] MCHC Auto (RBC) [Mass/Vol]on 08-20-2021 MCHC (RBC) [Mass/Vol] 32.6 g/dL 32-[address] [facility] Work Phone: Mucus LM Ql (Urine sed)on Mucus Ql (Urine sed) 0 SEEN /hpf [facility] Work Phone: [phone] Nitrite Test strip Ql (U)on 08-20-2021 Nitrite Ql (U) Negative Negative [facility] Work Phone: No Panel Informationon 08-20 Estimated Creatinine Clearance Calc 93.93 ml/min [facility] Work Phone: [phone] Estimated GFR (MDRD) Amer 106 mL/min >60 [facility] Work Phone: [phone] Comment on above: GFR Calc Estimated GFR (MDRD) Non-Af Amer 88 mL/min >60 [facility] Work Phone: [phone] Comment on above: Non- GFR Calc Platelets bldon 08-20-2021 Platelets (Bld) [#/Vol] 183 10*3/uL 150-450 [facility] Work Phone: [phone] Protein Test strip Ql (U)on 08-20-2021 Protein Ql (U) Negative Negative [facility] Work Phone: Serum or plasma albumin mg urement (mass/volume)on 08-20-2021 Albumin [Mass/Vol] 4.1 g/dL 3.2-5.0 [facility] Work Phone: [phone] Serum or plasma albumin/glob ulin mass ratioon 08-20-2021 Albumin/Globulin [Mass ratio] 1.1 {ratio} 0.9-2.4 [facility] Work Phone: [phone] Serum or plasma calcium mg urement (mass/volume)on 08-20-2021 Calcium [Mass/Vol] 9.2 mg/dL 8.5-10.1 [facility] Work Phone: [phone] Serum or plasma creatinine m easurement (mass/volume)on 08-20-2021 Creatinine [Mass/Vol] 0.79 mg/dL 0.55-1.[address] [facility] Work Phone: [phone] Comment on above: The validity of the calculated GFR & GFRAA in patients over 70 years has not been determined. Clinical correlation is essential. Serum or plasma urea nitroge n measurement (mass/volume)on 08-20-2021 Urea nitrogen [Mass/Vol] 6 mg/dL 7-18 [facility] Work Phone: [phone] Squamous epithelial cells de tection in urine sediment by light microscopyon 08-20-2021 Epithelial cells.squamous LM Ql (Urine sed) 5-10 SEEN /hpf 5-10 [facility] Work Phone: [phone] Thin prep Papanicolaou smear with manual screeningon 08-20-2021 Thin prep Papanicolaou smear with manual screening 14 U/L 15-37 [facility] Work Phone: [phone] Thin prep Papanicolaou smear with manual screening 4 5-15 [facility] Work Phone: [phone] Urine blood detectionon 04- RBC Ql (U) Negative Negative [facility] Work Phone: [phone] RBC Ql (U) 0 SEEN /hpf 0-5 [facility] Work Phone: [phone] Urine clarityon 08-20-2021 Clarity (U) Clear Clear [facility] Work Phone: Urine color determinationon 08-20-2021 Color (U) Yellow Yellow [facility] Work Phone: Urine glucose detectionon Glucose Ql (U) Normal mg/dl Normal [facility] Work Phone: Urine leukocyte esterase det ection by dipstickon 08-20-2021 Leukocyte esterase Test strip Ql (U) Negative Negative [facility] Work Phone: Urine pHon 08-20-2021 pH (U) 6.0 [pH] 5.0 - 8.0 [facility] Work Phone: Urine sediment bacteria coun t by microscopy (number/high power field)on 08-20-2021 Bacteria LM.HPF (Urine sed) [#/Area] 0 /[HPF] None Seen [facility] Work Phone: Urine specific gravity measu rementon 08-20-2021 Specific gravity (U) [Rel density] 1.015 1.002-1.030 [facility] Work Phone: Urobilinogen Auto test strip Ql (U)on 08-20-2021 Urobilinogen Ql (U) Normal mg/dl Normal [facility] Work Phone: No Panel Informationon 08-11 Thyroid Stimulating Hormone (TSH) 2.44 uIU/mL 0.358-3.74 [facility] Work Phone: Absolute lymphocyte counton 06-08-2021 Lymphocytes Auto (Unsp spec) [#/Vol] 1.22 10*3/uL 0.83-4.51 [facility] Work Phone: Basophil percentageon 2021 Basophils/100 WBC (Bld) 0.6 % 0-1 [facility] Work Phone: Bilirubin [Mass/Vol] 0.40 mg/dL 0.20-1.00 [facility] Work Phone: Comment on above: For patients on eltr ombopag therapy, use of Dimension [place] TBIL is not recommended. Chloride [Moles/Vol] 103 mmol/L 98-107 [facility] Work Phone: Eosinophils/100 WBC (Bld) 3.3 % 0-5 [facility] Work Phone: Glucose [Mass/Vol] 102 mg/dL 74-106 [facility] Work Phone: Comment on above: Fasting Glucose resu lt from 100 to 125 mg/dL suggests IMPAIRED HOMEOSTASIS per A.D.A. criteria. Neutrophils (Bld) [#/Vol] 3.0 10*3/uL 2.0-7.7 [facility] Work Phone: Neutrophils/100 WBC (Bld) 62.1 % 47-70 [facility] Work Phone: Potassium [Moles/Vol] 3.9 mmol/L 3.5-5.[address] [facility] Work Phone: Protein [Mass/Vol] 7.3 g/dL 6.4-8.2 [facility] Work Phone: Sodium [Moles/Vol] 139 mmol/L 136-145 [facility] Work Phone: WBC (Bld) [#/Vol] 4.9 10*3/uL 4.4-11.0 [facility] Work Phone: Blood erythrocytes count (nu mber/volume)on 06-08-2021 RBC (Bld) [#/Vol] 5.20 10*6/uL 4.2-5.4 [facility] Work Phone: Blood hemoglobin measurement (mass/volume)on 06-08-2021 Hemoglobin (Bld) [Mass/Vol] 14.3 g/dL 12.0-15.0 [facility] Work Phone: Blood lymphocytes/100 leukoc yteson 06-08-2021 Lymphocytes/100 WBC (Bld) 25.0 % 19-41 [facility] Work Phone: Blood monocytes/100 leukocyt eson 06-08-2021 Monocytes/100 WBC (Bld) 8.6 % 0-10 [facility] Work Phone: [phone] Blood platelet mean volumeon 06-08-2021 Platelet mean volume (Bld) [Entitic vol] 11.4 fL 6.2-12.0 [facility] Work Phone: [phone] Determination of erythrocyte mean corpuscular volume (MCV)on 06-08-2021 MCV (RBC) [Entitic vol] 84.0 fL 81-99 [facility] Work Phone: [phone] Hematocrit Auto (Bld) [Volum e fraction]on 06-08-2021 Hematocrit (Bld) [Volume fraction] 43.7 % 37-47 [facility] Work Phone: Laboratory - Chemistry and C hemistry - challengeon 06-08-2021 ALP [Catalytic activity/Vol] 65 U/L 45-117 [facility] Work Phone: [phone] ALT [Catalytic activity/Vol] 51 U/L 13-56 [facility] Work Phone: [phone] CO2 [Moles/Vol] 30.0 mmol/L 21.0-32.0 [facility] Work Phone: [phone] Globulin (S) [Mass/Vol] 3.7 g/dL 2.2-4.2 [facility] Work Phone: [phone] Urea nitrogen/Creatinine [Mass ratio] 12.5 mg/mg 10-20 [facility] Work Phone: [phone] Laboratory - Hematology and Cell countson 06-08-2021 Erythrocyte distribution width (RBC) [Entitic vol] 40.0 fL 35.1-43.9 [facility] Work Phone: [phone] Erythrocyte distribution width (RBC) [Ratio] 13.0 % 11.6-14.6 [facility] Work Phone: [phone] Immature granulocytes/100 WBC (Bld) 0.400 % 0.0-0.9 [facility] Work Phone: [phone] Comment on above: IG% - Immature Granu locytes (promyelocytes, myelocytes and metamyelocytes) > 1% indicates that a LEFT SHIFT is Present. MCH (RBC) [Entitic mass] 27.5 pg 27.0-32.0 [facility] Work Phone: Nucleated RBC/100 WBC (Bld) [Ratio] 0 % 0-5 [facility] Work Phone: [phone] MCHC Auto (RBC) [Mass/Vol]on 06-08-2021 MCHC (RBC) [Mass/Vol] 32.7 g/dL 32-[address] [facility] Work Phone: No Panel Informationon 06-08 Thyroid Stimulating Hormone (TSH) 0.30 uIU/mL 0.358-3.74 [facility] Work Phone: Estimated GFR (MDRD) Amer 119 mL/min >60 [facility] Work Phone: [phone] Comment on above: GFR Calc Estimated GFR (MDRD) Non-Af Amer 99 mL/min >60 [facility] Work Phone: [phone] Comment on above: Non- GFR Calc Vitamin D 25-Hydroxy 16.2 ng/mL [facility] Work Phone: [phone] Comment on above: Vitamin D 25(OH) Sta tus Range Deficiency <20 ng/mL (50nmol/L) Insufficiency 20 - 30 ng/mL (50 - 75 nmol/L) Sufficiency 30 - 100 ng/mL (75 - 250 nmol/L) Toxicity >100 ng/mL (>250 nmol/L) Platelets bldon 06-08-2021 Platelets (Bld) [#/Vol] 178 10*3/uL 150-450 [facility] Work Phone: [phone] Serum or plasma albumin mg urement (mass/volume)on 06-08-2021 Albumin [Mass/Vol] 3.6 g/dL 3.2-5.0 [facility] Work Phone: [phone] Serum or plasma albumin/glob ulin mass ratioon 06-08-2021 Albumin/Globulin [Mass ratio] 1.0 {ratio} 0.9-2.4 [facility] Work Phone: Serum or plasma calcium mg urement (mass/volume)on 06-08-2021 Calcium [Mass/Vol] 8.7 mg/dL 8.5-10.1 [facility] Work Phone: Serum or plasma creatinine m easurement (mass/volume)on 06-08-2021 Creatinine [Mass/Vol] 0.72 mg/dL 0.55-1.02 [facility] Work Phone: Comment on above: The validity of the calculated GFR & GFRAA in patients over 70 years has not been determined. Clinical correlation is essential. Serum or plasma urea nitroge n measurement (mass/volume)on 06-08-2021 Urea nitrogen [Mass/Vol] 9 mg/dL 7-18 [facility] Work Phone: Thin prep Papanicolaou smear with manual screeningon 06-08-2021 Thin prep Papanicolaou smear with manual screening 25 U/L 15-37 [facility] Work Phone: Thin prep Papanicolaou smear with manual screening 6 5-15 [facility] Work Phone: SARS coronavirus RNA [Presen ce] in Unspecified specimen by JONE with probe detectionon 05-24-2021 SARS-CoV RNA JONE+probe Ql (Unsp spec) Not detected Not Detected [facility] Work Phone: Comment on above: This nucleic [...] of in vitro diagnostic tests for detection [id number] virus and/or diagnosis of COVID-19 infectionunder section [...] 12-31-2020 IMPRESSION: No acute osseous abnormality identified. Strip Mill Operator: ANA Transcribe Date/Time: Dec 31 2020 1:18P Dictated by : ADE MELÉNDEZ MD This examination was interpreted and the report reviewed and electronically signed by: ADE MELÉNDEZ MD on Dec 31 2020 1:20PM [facility] DIVISION OF RADIOLOGY * * *Final Report* [...] abnormality identified. DIVISION OF RADIOLOGY Provider, [facility] * * *Final Report* * [...] IMPRESSION IMPRESSION: No acute osseous abnormality identified. Strip Mill Operator: ANA Transcribe Date/Time: Dec 31 2020 1:18P Dictated by : ADE MELÉNDEZ MD This examination was interpreted and the report reviewed and electronically signed by: ADE MELÉNDEZ MD on Dec 31 2020 1:20PM EST [facility] Radiology Study observation (narrative) Stacia mckay [facility] XR Shoulder - left 3 ViewsOr dered By: [facility] Provider on 12-31-2020 [facility] XR Chest PA and Lateralon IMPRESSION: No acute radiographic abnormality. Strip Mill Operator: ANA Transcribe Date/Time: Jun 25 2020 3:58P Dictated by : JOSHUA CLARK MD This examination was interpreted and the report reviewed and electronically signed by: JOSHUA CLARK MD on Jun 25 2020 3:59PM [facility] DIVISION OF RADIOLOGY * * *Final Report* [...] soft tissues: Unremarkable. DIVISION OF RADIOLOGY Provider, [facility] - 06/25/2020 * * *Final Report* * [...] Unremarkable. IMPRESSION IMPRESSION: No acute radiographic abnormality. Strip Mill Operator: PSCDom Transcribe Date/Time: Jun 25 2020 3:58P Dictated by : JOSHUA CLARK MD This examination was interpreted and the report reviewed and electronically signed by: JOSHUA CLARK MD on Jun 25 2020 3:59PM EST [facility] Radiology Study [facility]narrative[facility] Chest PA and LateralOrder ed By: Gutierrez Provider on 06-25-2020 [facility] Office Visit: OB Routineon 1 06-19-2016 Documentation of current medications (procedure) Done Invalid Interpretation Code [facility] Urine, glucose presence N Invalid Interpretation Code [facility] Urine, protein N Invalid Interpretation Code [facility] Office Visit: OB Routineon 1 06-10-2016 Documentation of current medications (procedure) Done Invalid Interpretation Code [facility] Urine, glucose presence N Invalid Interpretation Code [facility] Urine, protein N Invalid Interpretation Code [facility] Office Visit: OB Routineon 1 Albumin Ql (U) N Invalid Interpretation Code [facility] Documentation of current medications (procedure) Done Invalid Interpretation Code [facility] Glucose Test strip mass conc (U) N Invalid Interpretation Code [facility] Protein mass conc Done Invalid Interpretation Code [facility] Tobacco smoking status PAIS Never Invalid Interpretation Code [facility] Tobacco smoking status PAIS Tobacco smoking status NHIS Invalid Interpretation Code [facility] Tobacco smoking status PAIS Current every day smoker Invalid Interpretation Code [facility] Tobacco use [facility] Current every day smoker Invalid Interpretation Code [facility] Urine, glucose presence N Invalid Interpretation Code [facility] Urine, protein N Invalid Interpretation Code [facility] 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-2017 Ancillary Services Manager Therapy 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 Interface Message Text Patient rescheduled due to illness Normal [facility] Office Visit: OB Routineon 0 02-17-2017 Albumin Ql (U) N Invalid Interpretation Code [facility] Documentation of current medications (procedure) Done Invalid Interpretation Code [facility] Glucose Test strip mass conc (U) N Invalid Interpretation Code [facility] Protein mass conc Done Invalid Interpretation Code [facility] Urine, glucose presence N Invalid Interpretation Code [facility] Urine, protein N Invalid Interpretation Code [facility] Lab Report: HIV Screen 4TH G EN W/Confirmon 02-10-2017 GE use only - for Link[employer] import when terms are not otherwise specified . Invalid Interpretation Code Non Reactive [facility] Lab Report: Hepatitis B Surf d[place] Agon 02-10-2017 BSA (Body Surface Area) . Invalid Interpretation Code Negative [facility] Lab Report: Rapid Plasmin Re agin (RPR)on 02-10-2017 Reagin antibody presence . Invalid Interpretation Code NONREACTIVE [facility] Lab Report: Rubella IgGon rubella virus antibody, IgG 192.8 [iU]/mL Invalid Interpretation Code [facility] Replaced Document: HIV Scree n 4TH GEN W/Confirmon 02-10-2017 HIV1/0/2 SCREEN . Invalid Interpretation Code Non Reactive [facility] Replaced Document: Hepatitis B Surface Agon 02-10-2017 HBV surface Ag Ql (S) . Invalid Interpretation Code Negative [facility] Replaced Document: Rapid Jeremy smin Reagin (RPR)on 02-10-2017 Reagin Ab VDRL Qn (S) . Invalid Interpretation Code NONREACTIVE [facility] Replaced Document: Rubella I gGon 02-10-2017 Rubella IgG 192.8 [iU]/mL Invalid Interpretation Code [facility] Lab Report: CBC W/Diff, Auto matedon 02-09-2017 Basophils/100 WBC Auto (Bld) 0.2 % Invalid Interpretation Code 0-1 [facility] Eosinophils/100 leukocytes 3.2 % Invalid Interpretation Code 0-5 [facility] Erythrocyte distribution width Auto Ratio (RBC) 13.6 % Invalid Interpretation Code 11.6-14.6 [facility] Erythrocytes (RBC) 4.64 10*6/uL Invalid Interpretation Code 4.2-5.4 [facility] Hematocrit (HCT) 40.0 % Invalid Interpretation Code 37-47 [facility] Hemoglobin mass conc (Bld) 13.0 g/dL Invalid Interpretation Code 12.0-15.0 [facility] immature granulocytes, percentage of total cells, blood 0.200 % Invalid Interpretation Code 0.0-0.9 [facility] Lymphocytes 1.29 X10 3/UL Invalid Interpretation Code 0.83-4.51 [facility] Lymphocytes/100 leukocytes 25.7 % Invalid Interpretation Code 19-41 [facility] MCH 28.0 pg Invalid Interpretation Code 27.0-32.0 [facility] MCHC mass conc (RBC) 32.5 G/GL Invalid Interpretation Code 32-36 [facility] MCV 86.2 fL Invalid Interpretation Code 81-99 [facility] Monocytes/100 leukocytes 5.8 % Invalid Interpretation Code 0-10 [facility] neutrophil count, blood 3.3 X10 3/UL Invalid Interpretation Code 2.0-7.7 [facility] Neutrophils/100 WBC Auto (Bld) 64.9 % Invalid Interpretation Code 47-70 [facility] Platelets 171 10*3/mm3 Invalid Interpretation Code 150-450 [facility] PMV by Cordell 11.0 fL Invalid Interpretation Code 6.2-12.0 [facility] red blood cell distribution width, size density 42.8 fL Invalid Interpretation Code 35.1-43.9 [facility] WBC (Leukocytes) 5.0 10*3/uL Invalid Interpretation Code 4.4-11.0 [facility] Lab Report: Hemoglobin A1con 02-09-2017 Hemoglobin A1c/Hemoglobin.total mass fraction (Bld) 5.5 % Invalid Interpretation Code 4.2-6.3 [facility] Lab Report: T4 Total, Thyrox inon 02-09-2017 Thyroxine (T4) 11.4 ug/dL Invalid Interpretation Code 4.8-13.9 [facility] Lab Report: Thyroid Stim Hor kendrick (TSH)on 02-09-2017 Thyroid stimulating hormone (TSH) 6.03 u[iU]/mL High 0.358-3.74 [facility] Office Visit: OB Routineon 0 02-09-2017 Documentation of current medications (procedure) Done Invalid Interpretation Code [facility] Replaced Document: CBC W/Dif f, Automatedon 02-09-2017 Absolute Neut 3.3 X10 3/UL Invalid Interpretation Code 2.0-7.7 [facility] Basophils/100 WBC (Bld) 0.2 % 0-[address] [facility] Eosinophils/100 WBC (Bld) 3.2 % 0-5 [facility] Erythrocyte distribution width Auto Ratio (RBC) 42.8 fL Invalid Interpretation Code 35.1-43.9 [facility] Work Phone: Erythrocyte distribution width Ratio (RBC) 42.8 fL 35.1-43.9 [facility] Erythrocyte distribution width Ratio (RBC) 13.6 % 11.6-14.6 [facility] Hematocrit Volume Fraction (Bld) 40.0 % 37-47 [facility] Immature granulocytes #/vol (Bld) 0.200 % Invalid Interpretation Code 0.0-0.9 [facility] Immature granulocytes/100 WBC (Bld) 0.200 % Invalid Interpretation Code 0.0-0.9 [facility] Lymphocytes #/vol (Bld) 1.29 X10 3/UL 0.83-4.51 [facility] Lymphocytes/100 WBC (Bld) 25.7 % 19-41 [facility] MCH Entitic mass (RBC) 28.0 pg 27.0-32.0 [facility] MCHC mass conc (RBC) 32.5 G/GL 32-36 [facility] MCV Entitic volume (RBC) 86.2 fL 81-99 [facility] Monocytes/100 WBC (Bld) 5.8 % 0-10 B [facility] Neutrophils #/vol (Bld) 3.3 X10 3/UL 2.0-7.7 [facility] Neutrophils Auto #/vol (Bld) 3.3 X10 3/UL Invalid Interpretation Code 2.0-7.7 [facility] Work Phone: Neutrophils/100 WBC (Bld) 64.9 % 47-70 [facility] Platelet mean volume Entitic volume (Bld) 11.0 fL 6.2-12.0 [facility] Platelets #/vol (Bld) 171 10*3/mm3 150-450 B [facility] RBC #/vol (Bld) 4.64 10*6/uL 4.2-5.4 [facility] RDW SD 42.8 fL Invalid Interpretation Code 35.1-43.9 [facility] WBC #/vol (Bld) 5.0 10*3/uL 4.4-11.0 [facility] Microbiology: Culture, Genit al Comprehensiveon 01-20-2017 CUV . Invalid Interpretation Code [facility] GE use only - for [employer] import when terms are not otherwise specified . Invalid Interpretation Code [facility] Microbiology: (P) Culture, G enital Comprehensiveon 01-19-2017 GE use only - for [employer] import when terms are not otherwise specified . Invalid Interpretation Code [facility] Microbiology: (P) Culture, G enital Comprehensiveon 01-18-2017 GE use only - for LinkLogic import when terms are not otherwise specified . Invalid Interpretation Code [facility] Office Visit: bloody vaginal dischargeon 01-17-2017 Documentation of current medications (procedure) Done Invalid Interpretation Code [facility] Fall risk assessment No Invalid Interpretation Code [facility] Protein mass conc Done [facility] Tobacco smoking status NHIS Never Invalid Interpretation Code [facility] Tobacco smoking status NHIS Current every day smoker Invalid Interpretation Code [facility] Tobacco use [facility] Current every day smoker Invalid Interpretation Code [facility] Microbiology: Culture, Urine on 01-11-2017 CUUR . [facility] Append: OB Initialon 017 crown rump length by ultrasound 6.1 mm Invalid Interpretation Code [facility] estimated date of confinement by sonogram 09/01/2017 Invalid Interpretation Code [facility] cardiac activity by sonography Yes Invalid Interpretation Code [facility] number by ultrasound 1 Invalid Interpretation Code [facility] gestational age by ultrasound 6W 3D Invalid Interpretation Code [facility] OB ultrasound, gestational sac Yes Invalid Interpretation Code [facility] Lab Report: CT/NG [facility] BY PCR on 01-09-2017 Chlamydia trachomatis DNA [Presence] in Urine by Probe and target amplification method Negative Invalid Interpretation Code Negative [facility] Neisseria gonorrhoeae presence Negative Invalid Interpretation Code Negative [facility] Office Visit: OB Initialon 0 01-09-2017 Fall risk assessment No [facility] Herpes Simplex Virus Genital no Invalid Interpretation Code [facility] Tobacco smoking status NHIS Never [facility] Tobacco smoking status NHIS Current every day smoker [facility] Tobacco use [facility] Current every day smoker Invalid Interpretation Code [facility] Office Visit: OB Initialon 0 12-21-2015 General categories [Interpretation] of Cervical or vaginal smear or scraping by Cyto stain ASCUS Invalid Interpretation Code [facility] Bacteria identified Anaer cx Nom (Unsp spec) Anaerobic Culture Prevotella bivia [facility] Work Phone: Anaerobic Culture Prevotella melaninogenica [facility] Work Phone: Anaerobic Culture Anaerobic cocci [facility] Work Phone: Bacteria identified Cx Nom ( Wound) Wound Culture Enterococcus faecalis [facility] Work Phone: Culture, urine Bacteria identified Cx Nom (U) Positive [facility] Work Phone: Bacteria identified Cx Nom (U) Mixed Gram Pos & Gram Neg Org [facility] Work Phone: Gram stain for investigation of transfusion reaction Microscopic observation Gram stain Nom (Unsp spec) [facility] Work Phone: Influenza virus A and B and SARS-CoV-2 (COVID-19) Ag panel - Upper respiratory specim SARS-CoV-2 (COVID-19) RNA JONE+probe Ql (Resp) [facility] Work Phone: Laboratory - Microbiology an d Antimicrobial susceptibility Bacteria identified Cx Nom (Bld) No growth in 5 days. [facility] Work Phone: No Panel Information SARS-CoV-2 & FLU Antigen (Rapid) [facility] Work Phone: Vital Signs Date Time Vital Sign Value Performing Clinician Lennox calles 06-21-2024 13:58-0500 Body temperature 98.91 [degF] Tomasz Ace Jr., DPM Work Phone: [facility] 06-21-2024 13:58-0500 Diastolic blood pressure 82 mm[Hg] Tomasz Ace Jr., DPM Work Phone: [facility] 06-21-2024 13:58-0500 Heart rate 90 /min Tomasz Ace Jr., DPM Work Phone: [facility] 06-21-2024 13:58-0500 Systolic blood pressure 128 mm[Hg] Tomasz Ace Jr., DPM Work Phone: [facility] 09-29-2023 15:14-0400 Body height 167.[address] Aleena London Work Phone: [facility] 09-29-2023 15:14-0400 Body mass index (BMI) [Ratio] 38.6 kg/m2 Dr. Aleena London Work Phone: [facility] 09-29-2023 15:14-0400 Body temperature 97 [degF] Dr. Aleena London Work Phone: [facility] 09-29-2023 15:14-0400 Body weight 108.[address] Aleena London Work Phone: [facility] 09-29-2023 15:14-0400 Diastolic blood pressure 90 mm[Hg] Dr. Aleena London Work Phone: [facility] 09-29-2023 15:14-0400 Heart rate 65 /min Dr. Aleena London Work Phone: [facility] 09-29-2023 15:14-0400 Respiratory rate 16 /min Dr. Aleena London Work Phone: [facility] 09-29-2023 15:14-0400 SaO2% (BldA) [Mass fraction] 100 % Dr. Aleena London Work Phone: [facility] 09-29-2023 15:14-0400 Systolic blood pressure 149 mm[Hg] Dr. Aleena London Work Phone: [facility] 09-14-2023 15:11-0400 Body mass index (BMI) [Ratio] 38.3 kg/m2 Dr. Aleena London Work Phone: [facility] 09-14-2023 15:11-0400 Body temperature 98.7 [degF] Dr. Aleena London Work Phone: [facility] 09-14-2023 15:11-0400 Body weight 107.[address] Aleena London Work Phone: [facility] 09-14-2023 15:11-0400 Diastolic blood pressure 82 mm[Hg] Dr. Aleena London Work Phone: [facility] 09-14-2023 15:11-0400 Heart rate 83 /min Dr. Aleena London Work Phone: [facility] 09-14-2023 15:11-0400 Respiratory rate 16 /min Dr. Aleena London Work Phone: [facility] 09-14-2023 15:11-0400 SaO2% (BldA) [Mass fraction] 98 % Dr. Aleena London Work Phone: [facility] 09-14-2023 15:11-0400 Systolic blood pressure 128 mm[Hg] Dr. Aleena London Work Phone: [facility] 09-14-2023 12:10-0400 Body temperature 98.4 [degF] Dr. Aleena London Work Phone: [facility] 09-14-2023 12:10-0400 Diastolic blood pressure 80 mm[Hg] Dr. Aleena London Work Phone: [facility] 09-14-2023 12:10-0400 Heart rate 95 /min Dr. Aleena London Work Phone: [facility] 09-14-2023 12:10-0400 Respiratory rate 12 /min Dr. Aleena London Work Phone: [facility] 09-14-2023 12:10-0400 SaO2% (BldA) [Mass fraction] 98 % Dr. Aleena London Work Phone: [facility] 09-14-2023 12:10-0400 Systolic blood pressure 126 mm[Hg] Dr. Aleena London Work Phone: [facility] 09-11-2023 14:47-0400 Body height 167.[address] Aleena London Work Phone: [facility] 09-11-2023 14:47-0400 Body mass index (BMI) [Ratio] 38.2 kg/m2 Dr. Aleena London Work Phone: [facility] 09-11-2023 14:47-0400 Body temperature 99.4 [degF] Dr. Aleena London Work Phone: [facility] 09-11-2023 14:47-0400 Body weight 107.[address] Aleena London Work Phone: [facility] 09-11-2023 14:47-0400 Diastolic blood pressure 82 mm[Hg] Dr. Aleena London Work Phone: [facility] 09-11-2023 14:47-0400 Heart rate 92 /min Dr. Aleena London Work Phone: [facility] 09-11-2023 14:47-0400 Respiratory rate 14 /min Dr. Aleena London Work Phone: [facility] 09-11-2023 14:47-0400 SaO2% (BldA) [Mass fraction] 99 % Dr. Aleena London Work Phone: [facility] 09-11-2023 14:47-0400 Systolic blood pressure 122 mm[Hg] Dr. Aleena London Work Phone: [facility] 09-05-2023 14:01-0400 Body height 167.[address] Aleena London Work Phone: [facility] 09-05-2023 14:00-0400 Body mass index (BMI) [Ratio] 38 kg/m2 Dr. Aleena London Work Phone: [facility] 09-05-2023 14:00-0400 Body weight 106.[address] Aleena London Work Phone: [facility] 09-05-2023 14:00-0400 Diastolic blood pressure 82 mm[Hg] Dr. Aleena London Work Phone: [facility] 09-05-2023 14:00-0400 Systolic blood pressure 139 mm[Hg] Dr. Aleena London Work Phone: [facility] 09-05-2023 09:46-0400 Body mass index (BMI) [Ratio] 37.8 kg/m2 Dr. Aleena London Work Phone: [facility] 09-05-2023 09:46-0400 Body weight 106.[address] Aleena London Work Phone: [facility] 09-05-2023 09:46-0400 Diastolic blood pressure 75 mm[Hg] Dr. Aleena London Work Phone: [facility] 09-05-2023 09:46-0400 Heart rate 71 /min Dr. Aleena London Work Phone: [facility] 09-05-2023 09:46-0400 SaO2% (BldA) [Mass fraction] 98 % Dr. Aleena London Work Phone: [facility] 09-05-2023 09:46-0400 Systolic blood pressure 113 mm[Hg] Dr. Aleena London Work Phone: [facility] 07-26-2023 00:39-0500 Respiratory rate 18 /min Dr. Aleena London Work Phone: [facility] 07-25-2023 19:13-0500 Body height 167.[address] Aleena London Work Phone: [facility] 07-25-2023 19:13-0500 Body mass index (BMI) [Ratio] 37.9 kg/m2 Dr. Aleena London Work Phone: [facility] 07-25-2023 19:13-0500 Body temperature 98 [degF] Dr. Aleena London Work Phone: [facility] 07-25-2023 19:13-0500 Body weight 106.[address] Aleena London Work Phone: [facility] 07-25-2023 19:13-0500 Diastolic blood pressure 84 mm[Hg] Dr. Aleena London Work Phone: [facility] 07-25-2023 19:13-0500 Heart rate 85 /min Dr. Aleena London Work Phone: [facility] 07-25-2023 19:13-0500 SaO2% (BldA) [Mass fraction] 100 % Dr. Aleena London Work Phone: [facility] 07-25-2023 19:13-0500 Systolic blood pressure 122 mm[Hg] Dr. Aleena London Work Phone: [facility] 07-18-2023 23:43-0500 Body temperature 98 [degF] Dr. Aleena London Work Phone: [facility] 07-18-2023 23:43-0500 Diastolic blood pressure 83 mm[Hg] Dr. Aleena London Work Phone: [facility] 07-18-2023 23:43-0500 Heart rate 74 /min Dr. Aleena London Work Phone: [facility] 07-18-2023 23:43-0500 Respiratory rate 16 /min Dr. Aleena London Work Phone: [facility] 07-18-2023 23:43-0500 SaO2% (BldA) [Mass fraction] 96 % Dr. Aleena London Work Phone: [facility] 07-18-2023 23:43-0500 Systolic blood pressure 120 mm[Hg] Dr. Aleena London Work Phone: [facility] 07-18-2023 20:12-0500 Body height 167.[address] Aleena London Work Phone: [facility] 07-18-2023 20:12-0500 Body mass index (BMI) [Ratio] 37.1 kg/m2 Dr. Aleena London Work Phone: [facility] 07-18-2023 20:12-0500 Body weight 104.[address] Aleena London Work Phone: [facility] 07-18-2023 11:04-0500 Body mass index (BMI) [Ratio] 37.5 kg/m2 Dr. Aleena London Work Phone: [facility] 07-18-2023 11:04-0500 Body weight 105.[address] Aleena London Work Phone: [facility] 07-18-2023 11:04-0500 Diastolic blood pressure 74 mm[Hg] Dr. Aleena London Work Phone: [facility] 07-18-2023 11:04-0500 Systolic blood pressure 112 mm[Hg] Dr. Aleena London Work Phone: [facility] 07-13-2023 12:29-0500 Body temperature 99 [degF] Dr. Aleena London Work Phone: [facility] 07-13-2023 12:29-0500 Diastolic blood pressure 82 mm[Hg] Dr. Aleena London Work Phone: [facility] 07-13-2023 12:29-0500 Heart rate 109 /min Dr. Aleena London Work Phone: [facility] 07-13-2023 12:29-0500 Respiratory rate 12 /min Dr. Aleena London Work Phone: [facility] 07-13-2023 12:29-0500 SaO2% (BldA) [Mass fraction] 98 % Dr. Aleena London Work Phone: [facility] 07-13-2023 12:29-0500 Systolic blood pressure 122 mm[Hg] Dr. Aleena London Work Phone: [facility] 07-04-2023 14:23-0500 Body mass index (BMI) [Ratio] 38 kg/m2 Dr. Aleena London Work Phone: [facility] 07-04-2023 14:23-0500 Body temperature 97.5 [degF] Dr. Aleena London Work Phone: [facility] 07-04-2023 14:23-0500 Body weight 106.[address] Aleena London Work Phone: [facility] 07-04-2023 14:23-0500 Diastolic blood pressure 62 mm[Hg] Dr. Aleena London Work Phone: [facility] 07-04-2023 14:23-0500 Heart rate 82 /min Dr. Aleena London Work Phone: [facility] 07-04-2023 14:23-0500 Respiratory rate 16 /min Dr. Aleena London Work Phone: [facility] 07-04-2023 14:23-0500 SaO2% (BldA) [Mass fraction] 99 % Dr. Aleena London Work Phone: [facility] 07-04-2023 14:23-0500 Systolic blood pressure 122 mm[Hg] Dr. Aleena London Work Phone: [facility] 06-29-2023 09:42-0500 Body mass index (BMI) [Ratio] 60.7 kg/m2 Dr. Aleena London Work Phone: [facility] 06-29-2023 09:42-0500 Body temperature 97.9 [degF] Dr. Aleena London Work Phone: [facility] 06-29-2023 09:42-0500 Body weight 170.[address] Aleena London Work Phone: [facility] 06-29-2023 09:42-0500 Diastolic blood pressure 78 mm[Hg] Dr. Aleena London Work Phone: [facility] 06-29-2023 09:42-0500 Heart rate 94 /min Dr. Aleena London Work Phone: [facility] 06-29-2023 09:42-0500 Respiratory rate 16 /min Dr. Aleena London Work Phone: [facility] 06-29-2023 09:42-0500 SaO2% (BldA) [Mass fraction] 100 % Dr. Aleena London Work Phone: [facility] 06-29-2023 09:42-0500 Systolic blood pressure 136 mm[Hg] Dr. Aleena London Work Phone: [facility] 05-04-2023 12:50-0500 Diastolic blood pressure 77 mm[Hg] Dr. Aleena London Work Phone: [facility] 05-04-2023 12:50-0500 Heart rate 71 /min Dr. Aleena London Work Phone: [facility] 05-04-2023 12:50-0500 Respiratory rate 16 /min Dr. Aleena London Work Phone: [facility] 05-04-2023 12:50-0500 Systolic blood pressure 117 mm[Hg] Dr. Aleena London Work Phone: [facility] 05-04-2023 12:19-0500 Body height 167.[address] Aleena London Work Phone: [facility] 05-04-2023 12:19-0500 Body mass index (BMI) [Ratio] 37.5 kg/m2 Dr. Aleena London Work Phone: [facility] 05-04-2023 12:19-0500 Body temperature 98.3 [degF] Dr. Aleena [place] Work Phone: [facility] 05-04-2023 12:19-0500 Body weight 105.[address] Aleena [place] Work Phone: [facility] 05-04-2023 12:19-0500 SaO2% (BldA) [Mass fraction] 100 % Dr. Aleena [place] Work Phone: [facility] 04-19-2023 11:12-0500 Body mass index (BMI) [Ratio] 37.5 kg/m2 Dr. Aleena [place] Work Phone: [facility] 04-19-2023 11:12-0500 Body temperature 98.7 [degF] Dr. Aleena [place] Work Phone: [facility] 04-19-2023 11:12-0500 Body weight 105.[address] Aleena [place] Work Phone: [facility] 04-19-2023 11:12-0500 Diastolic blood pressure 86 mm[Hg] Dr. Aleena [place] Work Phone: [facility] 04-19-2023 11:12-0500 Heart rate 85 /min Dr. Aleena [place] Work Phone: [facility] 04-19-2023 11:12-0500 Respiratory rate 16 /min Dr. Aleena [place] Work Phone: [facility] 04-19-2023 11:12-0500 SaO2% (BldA) [Mass fraction] 98 % Dr. Aleena [place] Work Phone: [facility] 04-19-2023 11:12-0500 Systolic blood pressure 122 mm[Hg] Dr. Aleena [place] Work Phone: [facility] 04-17-2023 13:09-0500 Body height 167.[address] Aleena [place] Work Phone: [facility] 04-17-2023 13:09-0500 Body mass index (BMI) [Ratio] 37.8 kg/m2 Dr. Aleena [place] Work Phone: [facility] 04-17-2023 13:09-0500 Body temperature 95.9 [degF] Dr. Aleena [place] Work Phone: [facility] 04-17-2023 13:09-0500 Body weight 106.[address] Aleena [place] Work Phone: [facility] 04-17-2023 13:09-0500 Diastolic blood pressure 94 mm[Hg] Dr. Aleena [place] Work Phone: [facility] 04-17-2023 13:09-0500 Heart rate 107 /min Dr. Aleena [place] Work Phone: [facility] 04-17-2023 13:09-0500 Respiratory rate 18 /min Dr. Aleena [place] Work Phone: [facility] 04-17-2023 13:09-0500 SaO2% (BldA) [Mass fraction] 100 % Dr. Aleena [place] Work Phone: [facility] 04-17-2023 13:09-0500 Systolic blood pressure 145 mm[Hg] Dr. Aleena [place] Work Phone: [facility] 04-06-2023 14:05-0500 Body height 167.[address] Aleena [place] Work Phone: [facility] 04-06-2023 14:03-0500 Body mass index (BMI) [Ratio] 37.8 kg/m2 Dr. Aleena [place] Work Phone: [facility] 04-06-2023 14:03-0500 Body weight 106.[address] Aleena [place] Work Phone: [facility] 04-06-2023 14:03-0500 Diastolic blood pressure 88 mm[Hg] Dr. Aleena [place] Work Phone: [facility] 04-06-2023 14:03-0500 Systolic blood pressure 124 mm[Hg] Dr. Aleena [place] Work Phone: [facility] 03-16-2023 08:15-0400 Body height 167.[address] Aleena [place] Work Phone: [facility] 03-07-2023 14:41-0400 Body temperature 99 [degF] Dr. Aleena [place] Work Phone: [facility] 03-07-2023 14:41-0400 Diastolic blood pressure 82 mm[Hg] Dr. Aleena [place] Work Phone: [facility] 03-07-2023 14:41-0400 Heart rate 82 /min Dr. Aleena [place] Work Phone: [facility] 03-07-2023 14:41-0400 Respiratory rate 17 /min Dr. Aleena [place] Work Phone: [facility] 03-07-2023 14:41-0400 SaO2% (BldA) [Mass fraction] 98 % Dr. Aleena [place] Work Phone: [facility] 03-07-2023 14:41-0400 Systolic blood pressure 125 mm[Hg] Dr. Aleena [place] Work Phone: [facility] 02-14-2023 08:24-0400 Body temperature 98.9 [degF] Dr. Aleena [place] Work Phone: [facility] 02-14-2023 08:24-0400 Diastolic blood pressure 71 mm[Hg] Dr. Aleena [place] Work Phone: [facility] 02-14-2023 08:24-0400 Heart rate 82 /min Dr. Aleena [place] Work Phone: [facility] 02-14-2023 08:24-0400 Respiratory rate 16 /min Dr. Aleena [place] Work Phone: [facility] 02-14-2023 08:24-0400 SaO2% (BldA) [Mass fraction] 98 % Dr. Aleena [place] Work Phone: [facility] 02-14-2023 08:24-0400 Systolic blood pressure 117 mm[Hg] Dr. Aleena [place] Work Phone: [facility] 02-14-2023 07:13-0400 Body height 167.[address] Aleena [place] Work Phone: [facility] 02-14-2023 07:13-0400 Body mass index (BMI) [Ratio] 36.3 kg/m2 Dr. Aleena [place] Work Phone: [facility] 02-14-2023 07:13-0400 Body weight [address] Aleena [place] Work Phone: [facility] 02-10-2023 09:57-0400 Body mass index (BMI) [Ratio] 36.8 kg/m2 Dr. Aleena [place] Work Phone: [facility] 02-10-2023 09:57-0400 Body weight 103.[address] Aleena [place] Work Phone: [facility] 02-10-2023 09:57-0400 Diastolic blood pressure 74 mm[Hg] Dr. Aleena [place] Work Phone: [facility] 02-10-2023 09:57-0400 Systolic blood pressure 123 mm[Hg] Dr. Aleena [place] Work Phone: [facility] 02-08-2023 23:04-0400 Diastolic blood pressure 74 mm[Hg] Dr. Aleena [place] Work Phone: [facility] 02-08-2023 23:04-0400 Heart rate 81 /min Dr. Aleean [place] Work Phone: [facility] 02-08-2023 23:04-0400 Respiratory rate 16 /min Dr. Aleena [place] Work Phone: [facility] 02-08-2023 23:04-0400 SaO2% (BldA) [Mass fraction] 99 % Dr. Aleena [place] Work Phone: [facility] 02-08-2023 23:04-0400 Systolic blood pressure 128 mm[Hg] Dr. Aleena [place] Work Phone: [facility] 02-08-2023 17:51-0400 Body height 167.[address] Aleena [place] Work Phone: [facility] 02-08-2023 17:51-0400 Body mass index (BMI) [Ratio] 36.4 kg/m2 Dr. Aleena [place] Work Phone: [facility] 02-08-2023 17:51-0400 Body temperature 97.5 [degF] Dr. Aleena [place] Work Phone: [facility] 02-08-2023 17:51-0400 Body weight 102.[address] Aleena [place] Work Phone: [facility] 02-04-2023 20:12-0400 Respiratory rate 16 /min Dr. Aleena [place] Work Phone: [facility] 02-04-2023 18:44-0400 Body height 167.[address] Aleena [place] Work Phone: [facility] 02-04-2023 18:44-0400 Body mass index (BMI) [Ratio] 36.4 kg/m2 Dr. Aleena [place] Work Phone: [facility] 02-04-2023 18:44-0400 Body temperature 97.6 [degF] Dr. Aleena [place] Work Phone: [facility] 02-04-2023 18:44-0400 Body weight 102.[address] Aleena [place] Work Phone: [facility] 02-04-2023 18:44-0400 Diastolic blood pressure 89 mm[Hg] Dr. Aleena [place] Work Phone: [facility] 02-04-2023 18:44-0400 Heart rate 88 /min Dr. Aleena [place] Work Phone: [facility] 02-04-2023 18:44-0400 SaO2% (BldA) [Mass fraction] 100 % Dr. Aleena [place] Work Phone: [facility] 02-04-2023 18:44-0400 Systolic blood pressure 125 mm[Hg] Dr. Aleena [place] Work Phone: [facility] 01-16-2023 09:13-0400 Body mass index (BMI) [Ratio] 36.5 kg/m2 Dr. Aleena [place] Work Phone: [facility] 01-16-2023 09:13-0400 Body temperature 95.5 [degF] Dr. Aleena [place] Work Phone: [facility] 01-16-2023 09:13-0400 Body weight 102.[address] Alenea [place] Work Phone: [facility] 01-16-2023 09:13-0400 Diastolic blood pressure 86 mm[Hg] Dr. Aleena [place] Work Phone: [facility] 01-16-2023 09:13-0400 Heart rate 96 /min Dr. Aleena [place] Work Phone: [facility] 01-16-2023 09:13-0400 Respiratory rate 18 /min Dr. Aleena [place] Work Phone: [facility] 01-16-2023 09:13-0400 SaO2% (BldA) [Mass fraction] 98 % Dr. Aleena [place] Work Phone: [facility] 01-16-2023 09:13-0400 Systolic blood pressure 134 mm[Hg] Dr. Aleena [place] Work Phone: [facility] 12-25-2022 12:31-0400 Body height 167.[address] Aleena [place] Work Phone: [facility] 12-25-2022 12:31-0400 Body mass index (BMI) [Ratio] 36.3 kg/m2 Dr. Aleena [place] Work Phone: [facility] 12-25-2022 12:31-0400 Body temperature 97.1 [degF] Dr. Aleena [place] Work Phone: [facility] 12-25-2022 12:31-0400 Body weight 102.[address] Aleena [place] Work Phone: [facility] 12-25-2022 12:31-0400 Diastolic blood pressure 124 mm[Hg] Dr. Aleena [place] Work Phone: [facility] 12-25-2022 12:31-0400 Heart rate 90 /min Dr. Aleena [place] Work Phone: [facility] 12-25-2022 12:31-0400 Respiratory rate 18 /min Dr. Aleena [place] Work Phone: [facility] 12-25-2022 12:31-0400 SaO2% (BldA) [Mass fraction] 100 % Dr. Aleena [place] Work Phone: [facility] 12-25-2022 12:31-0400 Systolic blood pressure 145 mm[Hg] Dr. Aleena [place] Work Phone: [facility] 12-15-2022 10:30-0400 Body height 167.[address] Aleena [place] Work Phone: [facility] 12-15-2022 10:30-0400 Body mass index (BMI) [Ratio] 36.1 kg/m2 Dr. Aleena [place] Work Phone: [facility] 12-15-2022 10:30-0400 Body weight 101.[address] Aleena [place] Work Phone: [facility] 12-15-2022 10:30-0400 Diastolic blood pressure 80 mm[Hg] Dr. Aleena [place] Work Phone: [facility] 12-15-2022 10:30-0400 Systolic blood pressure 125 mm[Hg] Dr. Aleena [place] Work Phone: [facility] 12-08-2022 11:55-0400 Body mass index (BMI) [Ratio] 35.7 kg/m2 Dr. Aleena [place] Work Phone: [facility] 12-08-2022 11:55-0400 Body weight 100.[address] Aleena [place] Work Phone: [facility] 12-08-2022 11:55-0400 Diastolic blood pressure 85 mm[Hg] Dr. Aleena [place] Work Phone: [facility] 12-08-2022 11:55-0400 Systolic blood pressure 121 mm[Hg] Dr. Aleena [place] Work Phone: [facility] 11-19-2022 20:47-0400 Body height 167.[address] Aleena [place] Work Phone: [facility] 11-19-2022 20:47-0400 Body mass index (BMI) [Ratio] 36.1 kg/m2 Dr. Aleena [place] Work Phone: [facility] 11-19-2022 20:47-0400 Body temperature 97.6 [degF] Dr. Aleena [place] Work Phone: [facility] 11-19-2022 20:47-0400 Body weight 101.[address] Aleena [place] Work Phone: [facility] 11-19-2022 20:47-0400 Diastolic blood pressure 94 mm[Hg] Dr. Aleena [place] Work Phone: [facility] 11-19-2022 20:47-0400 Heart rate 99 /min Dr. Aleena London Work Phone: [facility] 11-19-2022 20:47-0400 Respiratory rate 14 /min Dr. Aleena [place] Work Phone: [facility] 11-19-2022 20:47-0400 SaO2% (BldA) [Mass fraction] 100 % Dr. Aleena [place] Work Phone: [facility] 11-19-2022 20:47-0400 Systolic blood pressure 130 mm[Hg] Dr. Aleena [place] Work Phone: [facility] 11-16-2022 10:43-0400 Body height 167.6 cm Lukasz Eubanks MD Work Phone: [facility] 11-16-2022 10:43-0400 Body temperature 98.6 [degF] Lukasz Eubakns MD Work Phone: [facility] 11-16-2022 10:43-0400 Body weight 102.06 kg Lukasz Eubanks MD Work Phone: [facility] 11-16-2022 10:43-0400 Diastolic blood pressure 90 mm[Hg] Lukasz Eubanks MD Work Phone: [facility] 11-16-2022 10:43-0400 Heart rate 79 /min Lukasz Eubanks MD Work Phone: [facility] 11-16-2022 10:43-0400 SaO2% (BldA) [Mass fraction] 100 % Lukasz Eubanks MD Work Phone: [facility] 11-16-2022 10:43-0400 Systolic blood pressure 125 mm[Hg] Lukasz Eubanks MD Work Phone: [facility] 11-08-2022 16:37-0400 Body height 167.[address] Aleena [place] Work Phone: [facility] 11-08-2022 16:37-0400 Body mass index (BMI) [Ratio] 36.2 kg/m2 Dr. Aleena [place] Work Phone: [facility] 11-08-2022 16:37-0400 Body temperature 96.5 [degF] Dr. Aleena [place] Work Phone: [facility] 11-08-2022 16:37-0400 Body weight 101.[address] Aleena [place] Work Phone: [facility] 11-08-2022 16:37-0400 Diastolic blood pressure 100 mm[Hg] Dr. Aleena [place] Work Phone: [facility] 11-08-2022 16:37-0400 Heart rate 100 /min Dr. Aleena [place] Work Phone: [facility] 11-08-2022 16:37-0400 Respiratory rate 18 /min Dr. Aleena [place] Work Phone: [facility] 11-08-2022 16:37-0400 SaO2% (BldA) [Mass fraction] 93 % Dr. Aleena [place] Work Phone: [facility] 11-08-2022 16:37-0400 Systolic blood pressure 114 mm[Hg] Dr. Aleena [place] Work Phone: [facility] 09-02-2022 10:43-0400 Body height 167.[address] Aleena [place] Work Phone: [facility] 09-02-2022 10:43-0400 Body mass index (BMI) [Ratio] 35.6 kg/m2 Dr. Aleena [place] Work Phone: [facility] 09-02-2022 10:43-0400 Body temperature 99.5 [degF] Dr. Aleena [place] Work Phone: [facility] 09-02-2022 10:43-0400 Body weight 100.[address] Aleena [place] Work Phone: [facility] 09-02-2022 10:43-0400 Diastolic blood pressure 74 mm[Hg] Dr. Aleena [place] Work Phone: [facility] 09-02-2022 10:43-0400 Heart rate 90 /min Dr. Aleena [place] Work Phone: [facility] 09-02-2022 10:43-0400 Respiratory rate 16 /min Dr. Aleena [place] Work Phone: [facility] 09-02-2022 10:43-0400 SaO2% (BldA) [Mass fraction] 98 % Dr. Aleena [place] Work Phone: [facility] 09-02-2022 10:43-0400 Systolic blood pressure 120 mm[Hg] Dr. Aleena [place] Work Phone: [facility] 08-26-2022 16:47-0400 Respiratory rate 18 /min Dr. Aleena [place] Work Phone: [facility] 08-26-2022 15:00-0400 Body mass index (BMI) [Ratio] 36.4 kg/m2 Dr. Aleena [place] Work Phone: [facility] 08-26-2022 15:00-0400 Body temperature 97.7 [degF] Dr. Aleena [place] Work Phone: [facility] 08-26-2022 15:00-0400 Body weight 102.[address] Aleena [place] Work Phone: [facility] 08-26-2022 15:00-0400 Diastolic blood pressure 93 mm[Hg] Dr. Aleena [place] Work Phone: [facility] 08-26-2022 15:00-0400 Heart rate 97 /min Dr. Aleena [place] Work Phone: [facility] 08-26-2022 15:00-0400 SaO2% (BldA) [Mass fraction] 100 % Dr. Aleena [place] Work Phone: [facility] 08-26-2022 15:00-0400 Systolic blood pressure 131 mm[Hg] Dr. Aleena [place] Work Phone: [facility] 08-22-2022 10:08-0400 Body mass index (BMI) [Ratio] 36.4 kg/m2 Dr. Aleena [place] Work Phone: [facility] 08-22-2022 10:08-0400 Body temperature 97.6 [degF] Dr. Aleena [place] Work Phone: [facility] 08-22-2022 10:08-0400 Body weight 102.[address] Aleena [place] Work Phone: [facility] 08-22-2022 10:08-0400 Diastolic blood pressure 80 mm[Hg] Dr. Aleena London Work Phone: [facility] 08-22-2022 10:08-0400 Heart rate 84 /min Dr. Aleena London Work Phone: [facility] 08-22-2022 10:08-0400 Respiratory rate 18 /min Dr. Aleena London Work Phone: [facility] 08-22-2022 10:08-0400 SaO2% (BldA) [Mass fraction] 96 % Dr. Aleena [place] Work Phone: [facility] 08-22-2022 10:08-0400 Systolic blood pressure 136 mm[Hg] Dr. Aleena [place] Work Phone: [facility] 08-18-2022 00:17-0400 Diastolic blood pressure 80 mm[Hg] Dr. Aleena London Work Phone: [facility] 08-18-2022 00:17-0400 Heart rate 81 /min Dr. Aleena London Work Phone: [facility] 08-18-2022 00:17-0400 Respiratory rate 16 /min Dr. Aleena London Work Phone: [facility] 08-18-2022 00:17-0400 SaO2% (BldA) [Mass fraction] 98 % Dr. Aleena London Work Phone: [facility] 08-18-2022 00:17-0400 Systolic blood pressure 130 mm[Hg] Dr. Aleena [place] Work Phone: [facility] 08-17-2022 21:13-0400 Body mass index (BMI) [Ratio] 36.7 kg/m2 Dr. Aleena London Work Phone: [facility] 08-17-2022 21:13-0400 Body temperature 96.6 [degF] Dr. Aleena [place] Work Phone: [facility] 08-17-2022 21:13-0400 Body weight 103.[address] Aleena London Work Phone: [facility] 08-15-2022 17:17-0400 Diastolic Blood Pressure Non-Invasive 82 1 ALAN QUINN DO [facility] 08-15-2022 17:17-0400 Heart rate 90 /min ALAN QUINN DO [facility] 08-15-2022 17:17-0400 Respiratory rate 18 /min ALAN QUINN DO [facility] 08-15-2022 17:17-0400 Systolic Blood Pressure Non-Invasive 154 1 ALAN QUINN DO [facility] 08-15-2022 16:04-0400 Body height 167.6 cm ALAN QUINN DO [facility] 08-15-2022 16:04-0400 Body temperature 99.14 [degF] ALAN QUINN DO [facility] 08-15-2022 16:04-0400 Body weight 103.5 kg ALAN QUINN DO [facility] 08-15-2022 16:04-0400 Diastolic Blood Pressure Non-Invasive 79 1 ALAN QUINN DO [facility] 08-15-2022 16:04-0400 Heart rate 108 /min ALAN QUINN DO [facility] 08-15-2022 16:04-0400 Respiratory rate 20 /min ALAN QUINN DO [facility] 08-15-2022 16:04-0400 Systolic Blood Pressure Non-Invasive 125 1 ALAN QUINN DO [facility] 08-08-2022 11:35-0400 Body mass index (BMI) [Ratio] 37 kg/m2 Dr. Aleena [place] Work Phone: [facility] 08-08-2022 11:35-0400 Body weight 103.[address] Aleena [place] Work Phone: [facility] 08-08-2022 11:35-0400 Diastolic blood pressure 72 mm[Hg] Dr. Aleena [place] Work Phone: [facility] 08-08-2022 11:35-0400 Systolic blood pressure 114 mm[Hg] Dr. Aleena [place] Work Phone: [facility] 07-17-2022 20:31-0500 Diastolic blood pressure 81 mm[Hg] Dr. Aleena [place] Work Phone: [facility] 07-17-2022 20:31-0500 Heart rate 83 /min Dr. Aleena [place] Work Phone: [facility] 07-17-2022 20:31-0500 Respiratory rate 24 /min Dr. Aleena London Work Phone: [facility] 07-17-2022 20:31-0500 SaO2% (BldA) [Mass fraction] 121 % Dr. Aleena [place] Work Phone: [facility] 07-17-2022 20:31-0500 Systolic blood pressure 121 mm[Hg] Dr. Aleena [place] Work Phone: [facility] 07-17-2022 18:22-0500 Body height 167.[address] Aelena [place] Work Phone: [facility] 07-17-2022 18:22-0500 Body mass index (BMI) [Ratio] 36.8 kg/m2 Dr. Aleena [place] Work Phone: [facility] 07-17-2022 18:22-0500 Body temperature 98.2 [degF] Dr. Aleena London Work Phone: [facility] 07-17-2022 18:22-0500 Body weight 103.[address] Aleena [place] Work Phone: [facility] 07-14-2022 14:08-0500 Body mass index (BMI) [Ratio] 37.3 kg/m2 Dr. Aleena [place] Work Phone: [facility] 07-14-2022 14:08-0500 Body weight 104.[address] Aleena London Work Phone: [facility] 07-14-2022 14:08-0500 Diastolic blood pressure 84 mm[Hg] Dr. Aleena [place] Work Phone: [facility] 07-14-2022 14:08-0500 Heart rate 101 /min Dr. Aleena London Work Phone: [facility] 07-14-2022 14:08-0500 SaO2% (BldA) [Mass fraction] 97 % Dr. lAeena London Work Phone: [facility] 07-14-2022 14:08-0500 Systolic blood pressure 130 mm[Hg] Dr. Aleena [place] Work Phone: [facility] 06-29-2022 08:10-0500 Body height 167.[address] Aleena London Work Phone: [facility] 06-29-2022 08:10-0500 Body mass index (BMI) [Ratio] 37.5 kg/m2 Dr. Aleena London Work Phone: [facility] 06-29-2022 08:10-0500 Body temperature 98.8 [degF] Dr. Aleena [place] Work Phone: [facility] 06-29-2022 08:10-0500 Body weight 105.[address] Aleena [place] Work Phone: [facility] 06-29-2022 08:10-0500 Diastolic blood pressure 86 mm[Hg] Dr. Aleena London Work Phone: [facility] 06-29-2022 08:10-0500 Heart rate 76 /min Dr. Aleena London Work Phone: [facility] 06-29-2022 08:10-0500 Respiratory rate 18 /min Dr. Aleena London Work Phone: [facility] 06-29-2022 08:10-0500 SaO2% (BldA) [Mass fraction] 97 % Dr. Aleena London Work Phone: [facility] 06-29-2022 08:10-0500 Systolic blood pressure 124 mm[Hg] Dr. Aleena [place] Work Phone: [facility] 06-10-2022 09:10-0500 Body height 167.[address] Aleena London Work Phone: [facility] 06-10-2022 09:10-0500 Body mass index (BMI) [Ratio] 36.8 kg/m2 Dr. Aleena London Work Phone: [facility] 06-10-2022 09:10-0500 Body temperature 98.1 [degF] Dr. Aleena London Work Phone: [facility] 06-10-2022 09:10-0500 Body weight 103.[address] Aleena London Work Phone: [facility] 06-10-2022 09:10-0500 Diastolic blood pressure 127 mm[Hg] Dr. Aleena London Work Phone: [facility] 06-10-2022 09:10-0500 Heart rate 96 /min Dr. Aleena London Work Phone: [facility] 06-10-2022 09:10-0500 Respiratory rate 15 /min Dr. Aleena London Work Phone: [facility] 06-10-2022 09:10-0500 SaO2% (BldA) [Mass fraction] 100 % Dr. Aleena London Work Phone: [facility] 06-10-2022 09:10-0500 Systolic blood pressure 142 mm[Hg] Dr. Aleena London Work Phone: [facility] 05-30-2022 09:42-0500 Body mass index (BMI) [Ratio] 36.9 kg/m2 Dr. Aleena London Work Phone: [facility] 05-30-2022 09:42-0500 Body temperature 98.1 [degF] Dr. Aleena London Work Phone: [facility] 05-30-2022 09:42-0500 Body weight 103.[address] Aleena London Work Phone: [facility] 05-30-2022 09:42-0500 Diastolic blood pressure 74 mm[Hg] Dr. Aleena London Work Phone: [facility] 05-30-2022 09:42-0500 Heart rate 82 /min Dr. Aleena London Work Phone: [facility] 05-30-2022 09:42-0500 Respiratory rate 14 /min Dr. Aleena London Work Phone: [facility] 05-30-2022 09:42-0500 SaO2% (BldA) [Mass fraction] 99 % Dr. Aleena London Work Phone: [facility] 05-30-2022 09:42-0500 Systolic blood pressure 126 mm[Hg] Dr. Aleena London Work Phone: [facility] 05-24-2022 08:46-0500 Body mass index (BMI) [Ratio] 37.1 kg/m2 Dr. Aleena London Work Phone: [facility] 05-24-2022 08:46-0500 Body temperature 97.8 [degF] Dr. Aleena London Work Phone: [facility] 05-24-2022 08:46-0500 Body weight 104.[address] Aleena London Work Phone: [facility] 05-24-2022 08:46-0500 Diastolic blood pressure 84 mm[Hg] Dr. Aleena London Work Phone: [facility] 05-24-2022 08:46-0500 Heart rate 89 /min Dr. Aleena London Work Phone: [facility] 05-24-2022 08:46-0500 Respiratory rate 20 /min Dr. Aleena London Work Phone: [facility] 05-24-2022 08:46-0500 SaO2% (BldA) [Mass fraction] 99 % Dr. Aleena London Work Phone: [facility] 05-24-2022 08:46-0500 Systolic blood pressure 129 mm[Hg] Dr. Aleena London Work Phone: [facility] 05-23-2022 02:21-0500 Diastolic blood pressure 82 mm[Hg] Dr. Aleena London Work Phone: [facility] 05-23-2022 02:21-0500 Heart rate 77 /min Dr. Aleena London Work Phone: [facility] 05-23-2022 02:21-0500 Respiratory rate 15 /min Dr. Aleena London Work Phone: [facility] 05-23-2022 02:21-0500 SaO2% (BldA) [Mass fraction] 99 % Dr. Aleena London Work Phone: [facility] 05-23-2022 02:21-0500 Systolic blood pressure 122 mm[Hg] Dr. Aleena London Work Phone: [facility] 05-22-2022 23:54-0500 Body height 167.[address] Aleena London Work Phone: [facility] Work Phone: 05-22-2022 23:54-0500 Body mass index (BMI) [Ratio] 37.3 kg/m2 Dr. Aleena London Work Phone: [facility] 05-22-2022 23:54-0500 Body temperature 98 [degF] Dr. Aleena London Work Phone: [facility] 05-22-2022 23:54-0500 Body weight [address] Aleena London Work Phone: [facility] 05-04-2022 13:18-0500 Body mass index (BMI) [Ratio] 36.6 kg/m2 Dr. Aleena London Work Phone: [facility] 05-04-2022 13:18-0500 Body weight 102.[address] Aleena London Work Phone: [facility] 05-04-2022 13:18-0500 Diastolic blood pressure 82 mm[Hg] Dr. Aleena London Work Phone: [facility] 05-04-2022 13:18-0500 Systolic blood pressure 121 mm[Hg] Dr. Aleena London Work Phone: [facility] 04-20-2022 11:47-0500 Body mass index (BMI) [Ratio] 37.8 kg/m2 Dr. Aleena London Work Phone: [facility] 04-20-2022 11:47-0500 Body weight 103.[address] Aleena London Work Phone: [facility] 04-20-2022 11:47-0500 Diastolic blood pressure 71 mm[Hg] Dr. Aleena London Work Phone: [facility] 04-20-2022 11:47-0500 Systolic blood pressure 111 mm[Hg] Dr. Aleena London Work Phone: [facility] 04-18-2022 17:09-0500 Body height 165.[address] Aleena London Work Phone: [facility] Work Phone: 04-18-2022 17:09-0500 Body mass index (BMI) [Ratio] 37.6 kg/m2 Dr. Aleena London Work Phone: [facility] 04-18-2022 17:09-0500 Body temperature 97.7 [degF] Dr. Aleena London Work Phone: [facility] 04-18-2022 17:09-0500 Body weight 102.[address] Aleena London Work Phone: [facility] 04-18-2022 17:09-0500 Diastolic blood pressure 76 mm[Hg] Dr. Aleena London Work Phone: [facility] 04-18-2022 17:09-0500 Heart rate 102 /min Dr. Aleena London Work Phone: [facility] 04-18-2022 17:09-0500 Respiratory rate 14 /min Dr. Aleena London Work Phone: [facility] 04-18-2022 17:09-0500 SaO2% (BldA) [Mass fraction] 99 % Dr. Aleena London Work Phone: [facility] 04-18-2022 17:09-0500 Systolic blood pressure 123 mm[Hg] Dr. Aleena London Work Phone: [facility] 04-16-2022 09:30-0500 Body temperature 97.8 [degF] Dr. Aleena London Work Phone: [facility] 04-16-2022 09:30-0500 Diastolic blood pressure 61 mm[Hg] Dr. Aleena London Work Phone: [facility] 04-16-2022 09:30-0500 Heart rate 82 /min Dr. Aleena London Work Phone: [facility] 04-16-2022 09:30-0500 Respiratory rate 17 /min Dr. Aleena London Work Phone: [facility] 04-16-2022 09:30-0500 SaO2% (BldA) [Mass fraction] 100 % Dr. Aleena London Work Phone: [facility] 04-16-2022 09:30-0500 Systolic blood pressure 106 mm[Hg] Dr. Aleena London Work Phone: [facility] 04-16-2022 02:05-0500 Body temperature 98.8 [degF] Dr. Aleena London Work Phone: [facility] Work Phone: 04-16-2022 02:05-0500 Diastolic blood pressure 67 mm[Hg] Dr. Aleena London Work Phone: [facility] Work Phone: 04-16-2022 02:05-0500 Heart rate 93 /min Dr. Aleena London Work Phone: [facility] Work Phone: 04-16-2022 02:05-0500 Respiratory rate 18 /min Dr. Aleena London Work Phone: [facility] Work Phone: 04-16-2022 02:05-0500 SaO2% (BldA) [Mass fraction] 98 % Dr. Aleena London Work Phone: [facility] Work Phone: 04-16-2022 02:05-0500 Systolic blood pressure 125 mm[Hg] Dr. Aleena London Work Phone: [facility] Work Phone: 04-15-2022 09:48-0500 Inhaled oxygen flow rate 6 L/min Dr. Aleena London Work Phone: [facility] 04-14-2022 21:53-0500 Body height 165.[address] Aleena London Work Phone: [facility] Work Phone: 04-14-2022 21:53-0500 Body mass index (BMI) [Ratio] 37.3 kg/m2 Dr. Aleena London Work Phone: [facility] 04-14-2022 21:53-0500 Body weight 101.[address] Aleena London Work Phone: [facility] 04-12-2022 20:13-0500 Body temperature 98.1 [degF] Dr. Aleena London Work Phone: [facility] Work Phone: 04-12-2022 20:13-0500 Diastolic blood pressure 56 mm[Hg] Dr. Aleena London Work Phone: [facility] Work Phone: 04-12-2022 20:13-0500 Heart rate 76 /min Dr. Aleena London Work Phone: [facility] Work Phone: 04-12-2022 20:13-0500 Respiratory rate 15 /min Dr. Aleena London Work Phone: [facility] Work Phone: 04-12-2022 20:13-0500 SaO2% (BldA) [Mass fraction] 97 % Dr. Aleena London Work Phone: [facility] Work Phone: 04-12-2022 20:13-0500 Systolic blood pressure 98 mm[Hg] Dr. Aleena London Work Phone: [facility] Work Phone: 04-12-2022 13:43-0500 Body height 165.[address] Aleena London Work Phone: [facility] Work Phone: 04-12-2022 13:43-0500 Body mass index (BMI) [Ratio] 37.6 kg/m2 Dr. Aleena London Work Phone: [facility] Work Phone: 04-12-2022 13:43-0500 Body weight 102.[address] Aleena London Work Phone: [facility] Work Phone: 04-05-2022 09:31-0500 Body height 167.[address] Aleena London Work Phone: [facility] Work Phone: 04-05-2022 09:31-0500 Body mass index (BMI) [Ratio] 36.4 kg/m2 Dr. Aleena London Work Phone: [facility] 04-05-2022 09:31-0500 Body weight 102.[address] Aleena London Work Phone: [facility] 04-05-2022 09:31-0500 Diastolic blood pressure 74 mm[Hg] Dr. Aleena London Work Phone: [facility] 04-05-2022 09:31-0500 Systolic blood pressure 107 mm[Hg] Dr. Aleena London Work Phone: [facility] 03-30-2022 17:35-0500 Heart rate 82 /min Dr. Aleena London Work Phone: [facility] 03-30-2022 17:35-0500 Respiratory rate 15 /min Dr. Aleena London Work Phone: [facility] 03-30-2022 17:35-0500 SaO2% (BldA) [Mass fraction] 98 % Dr. Aleena London Work Phone: [facility] 03-30-2022 14:04-0500 Body mass index (BMI) [Ratio] 36.9 kg/m2 Dr. Aleena London Work Phone: [facility] 03-30-2022 14:04-0500 Body temperature 97.4 [degF] Dr. Aleena London Work Phone: [facility] 03-30-2022 14:04-0500 Body weight 103.[address] Aleena London Work Phone: [facility] 03-30-2022 14:04-0500 Diastolic blood pressure 83 mm[Hg] Dr. Aleena London Work Phone: [facility] 03-30-2022 14:04-0500 Systolic blood pressure 119 mm[Hg] Dr. Aleena London Work Phone: [facility] 03-30-2022 13:02-0500 Body mass index (BMI) [Ratio] 36.9 kg/m2 Dr. Aleena London Work Phone: [facility] 03-30-2022 13:02-0500 Body weight 103.[address] Aleena London Work Phone: [facility] 03-30-2022 13:02-0500 Diastolic blood pressure 73 mm[Hg] Dr. Aleena London Work Phone: [facility] 03-30-2022 13:02-0500 Systolic blood pressure 118 mm[Hg] Dr. Aleena London Work Phone: [facility] 03-23-2022 11:26-0400 Body temperature 98.2 [degF] Dr. Aleena London Work Phone: [facility] 03-23-2022 11:26-0400 Diastolic blood pressure 65 mm[Hg] Dr. Aleena London Work Phone: [facility] 03-23-2022 11:26-0400 Heart rate 66 /min Dr. Aleena London Work Phone: [facility] 03-23-2022 11:26-0400 Respiratory rate 20 /min Dr. Aleena London Work Phone: [facility] 03-23-2022 11:26-0400 SaO2% (BldA) [Mass fraction] 97 % Dr. Aleena London Work Phone: [facility] 03-23-2022 11:26-0400 Systolic blood pressure 106 mm[Hg] Dr. Aleena London Work Phone: [facility] 03-22-2022 18:30-0400 Inhaled oxygen flow rate 4 L/min Dr. Aleena London Work Phone: [facility] 03-22-2022 17:41-0400 Body height 167.[address] Aleena London Work Phone: [facility] Work Phone: 03-22-2022 17:41-0400 Body mass index (BMI) [Ratio] 38.4 kg/m2 Dr. Aleena London Work Phone: [facility] 03-22-2022 17:41-0400 Body weight [address] Aleena London Work Phone: [facility] 03-12-2022 12:29-0400 Body height 167.[address] Aleena London Work Phone: [facility] Work Phone: 03-12-2022 12:29-0400 Body mass index (BMI) [Ratio] 37.9 kg/m2 Dr. Aleena London Work Phone: [facility] 03-12-2022 12:29-0400 Body temperature 98.1 [degF] Dr. Aleena London Work Phone: [facility] 03-12-2022 12:29-0400 Body weight 106.[address] Aleena London Work Phone: [facility] 03-12-2022 12:29-0400 Diastolic blood pressure 106 mm[Hg] Dr. Aleena London Work Phone: [facility] 03-12-2022 12:29-0400 Heart rate 119 /min Dr. Aleena London Work Phone: [facility] 03-12-2022 12:29-0400 Respiratory rate 16 /min Dr. Aleena London Work Phone: [facility] 03-12-2022 12:29-0400 SaO2% (BldA) [Mass fraction] 98 % Dr. Aleena London Work Phone: [facility] 03-12-2022 12:29-0400 Systolic blood pressure 157 mm[Hg] Dr. Aleena London Work Phone: [facility] 03-04-2022 16:11-0400 Heart rate 77 /min Dr. Aleena London Work Phone: [facility] 03-04-2022 16:11-0400 Respiratory rate 15 /min Dr. Aleena London Work Phone: [facility] 03-04-2022 16:11-0400 SaO2% (BldA) [Mass fraction] 98 % Dr. Aleena London Work Phone: [facility] 03-04-2022 13:28-0400 Body height 165.[address] Aleena London Work Phone: [facility] Work Phone: 03-04-2022 13:28-0400 Body mass index (BMI) [Ratio] 38.5 kg/m2 Dr. Aleena London Work Phone: [facility] 03-04-2022 13:28-0400 Body temperature 97.2 [degF] Dr. Aleena London Work Phone: [facility] 03-04-2022 13:28-0400 Body weight 104.[address] Aleena London Work Phone: [facility] 03-04-2022 13:28-0400 Diastolic blood pressure 91 mm[Hg] Dr. Aleena London Work Phone: [facility] 03-04-2022 13:28-0400 Systolic blood pressure 156 mm[Hg] Dr. Aleena London Work Phone: [facility] 03-02-2022 13:00-0400 Body mass index (BMI) [Ratio] 37.8 kg/m2 Dr. Aleena London Work Phone: [facility] 03-02-2022 13:00-0400 Body temperature 98.8 [degF] Dr. Aleena London Work Phone: [facility] 03-02-2022 13:00-0400 Body weight 106.[address] Aleena London Work Phone: [facility] 03-02-2022 13:00-0400 Diastolic blood pressure 82 mm[Hg] Dr. Aleena London Work Phone: [facility] 03-02-2022 13:00-0400 Heart rate 89 /min Dr. Aleena London Work Phone: [facility] 03-02-2022 13:00-0400 Respiratory rate 14 /min Dr. Aleena London Work Phone: [facility] 03-02-2022 13:00-0400 SaO2% (BldA) [Mass fraction] 97 % Dr. Aleena London Work Phone: [facility] 03-02-2022 13:00-0400 Systolic blood pressure 134 mm[Hg] Dr. Aleena London Work Phone: [facility] 02-28-2022 11:09-0400 Body temperature 98.7 [degF] Dr. Aleena London Work Phone: [facility] 02-28-2022 11:09-0400 Diastolic blood pressure 74 mm[Hg] Dr. Aleena London Work Phone: [facility] 02-28-2022 11:090400 Heart rate 112 /min Dr. Aleena London Work Phone: [facility] 02-28-2022 11:090400 Respiratory rate 14 /min Dr. Aleena London Work Phone: [facility] 02-28-2022 11:09-0400 SaO2% (BldA) [Mass fraction] 99 % Dr. Aleena London Work Phone: [facility] 02-28-2022 11:09-0400 Systolic blood pressure 126 mm[Hg] Dr. Aleena London Work Phone: [facility] 02-23-2022 10:26-0400 Body height 167.[address] Aleena London Work Phone: [facility] Work Phone: 02-23-2022 10:26-0400 Body mass index (BMI) [Ratio] 37.8 kg/m2 Dr. Aleena London Work Phone: [facility] 02-23-2022 10:26-0400 Body weight 106.[address] Aleena London Work Phone: [facility] 02-23-2022 10:26-0400 Diastolic blood pressure 83 mm[Hg] Dr. Aleena London Work Phone: [facility] 02-23-2022 10:26-0400 Heart rate 80 /min Dr. Aleena London Work Phone: [facility] 02-23-2022 10:26-0400 SaO2% (BldA) [Mass fraction] 96 % Dr. Aleena London Work Phone: [facility] 02-23-2022 10:26-0400 Systolic blood pressure 126 mm[Hg] Dr. Aleena London Work Phone: [facility] 02-15-2022 11:31-0400 Body mass index (BMI) [Ratio] 37.6 kg/m2 Dr. Aleena London Work Phone: [facility] 02-15-2022 11:31-0400 Body temperature 98.1 [degF] Dr. Aleena London Work Phone: [facility] 02-15-2022 11:31-0400 Body weight 105.[address] Aleena London Work Phone: [facility] 02-15-2022 11:31-0400 Diastolic blood pressure 85 mm[Hg] Dr. Aleena London Work Phone: [facility] 02-15-2022 11:31-0400 Heart rate 96 /min Dr. Aleena London Work Phone: [facility] 02-15-2022 11:31-0400 Respiratory rate 18 /min Dr. Aleena London Work Phone: [facility] 02-15-2022 11:31-0400 SaO2% (BldA) [Mass fraction] 100 % Dr. Aleena London Work Phone: [facility] 02-15-2022 11:31-0400 Systolic blood pressure 149 mm[Hg] Dr. Aleena London Work Phone: [facility] 02-15-2022 08:52-0400 Body mass index (BMI) [Ratio] 37.5 kg/m2 Dr. Aleena London Work Phone: [facility] 02-15-2022 08:52-0400 Body weight 105.[address] Aleena London Work Phone: [facility] 02-15-2022 08:52-0400 Diastolic blood pressure 85 mm[Hg] Dr. Aleena London Work Phone: [facility] 02-15-2022 08:52-0400 Systolic blood pressure 120 mm[Hg] Dr. Aleena London Work Phone: [facility] 02-08-2022 14:00-0400 Body mass index (BMI) [Ratio] 37.5 kg/m2 Dr. Aleena London Work Phone: [facility] Work Phone: 02-08-2022 14:00-0400 Body temperature 99 [degF] Dr. Aleena London Work Phone: [facility] Work Phone: 02-08-2022 14:00-0400 Body weight 105.[address] Aleena London Work Phone: [facility] Work Phone: 02-08-2022 14:00-0400 Diastolic blood pressure 86 mm[Hg] Dr. Aleena London Work Phone: [facility] Work Phone: 02-08-2022 14:00-0400 Heart rate 89 /min Dr. Aleena London Work Phone: [facility] Work Phone: 02-08-2022 14:00-0400 Respiratory rate 14 /min Dr. Aleena London Work Phone: [facility] Work Phone: 02-08-2022 14:00-0400 SaO2% (BldA) [Mass fraction] 99 % Dr. Aleena London Work Phone: [facility] Work Phone: 02-08-2022 14:00-0400 Systolic blood pressure 132 mm[Hg] Dr. Aleena London Work Phone: [facility] Work Phone: 12-30-2021 15:28-0400 Body height 167.[address] Aleena London Work Phone: [facility] Work Phone: 12-30-2021 15:28-0400 Body mass index (BMI) [Ratio] 37.5 kg/m2 Dr. Aleena London Work Phone: [facility] Work Phone: 12-30-2021 15:28-0400 Body weight 105.[address] Aleena London Work Phone: [facility] Work Phone: 12-30-2021 15:28-0400 Diastolic blood pressure 82 mm[Hg] Dr. Aleena London Work Phone: [facility] Work Phone: 12-30-2021 15:28-0400 Heart rate 87 /min Dr. Aleena London Work Phone: [facility] Work Phone: 12-30-2021 15:28-0400 SaO2% (BldA) [Mass fraction] 97 % Dr. Aleena London Work Phone: [facility] Work Phone: 12-30-2021 15:28-0400 Systolic blood pressure 138 mm[Hg] Dr. Aleena London Work Phone: [facility] Work Phone: 12-24-2021 00:35-0400 Heart rate 89 /min Dr. Aleena London Work Phone: [facility] Work Phone: 12-24-2021 00:35-0400 Respiratory rate 16 /min Dr. Aleena Londno Work Phone: [facility] Work Phone: 12-24-2021 00:35-0400 SaO2% (BldA) [Mass fraction] 99 % Dr. Aleena London Work Phone: [facility] Work Phone: 12-23-2021 22:19-0400 Body height 167.[address] Aleena London Work Phone: [facility] Work Phone: 12-23-2021 22:19-0400 Body mass index (BMI) [Ratio] 37.4 kg/m2 Dr. Aleena London Work Phone: [facility] Work Phone: 12-23-2021 22:19-0400 Body temperature 98.1 [degF] Dr. Aleena London Work Phone: [facility] Work Phone: 12-23-2021 22:19-0400 Body weight 105.[address] Aleena London Work Phone: [facility] Work Phone: 12-23-2021 22:19-0400 Diastolic blood pressure 97 mm[Hg] Dr. Aleena London Work Phone: [facility] Work Phone: 12-23-2021 22:19-0400 Systolic blood pressure 139 mm[Hg] Dr. Aleena London Work Phone: [facility] Work Phone: 12-14-2021 10:42-0400 Body mass index (BMI) [Ratio] 37.5 kg/m2 Dr. Aleena London Work Phone: [facility] Work Phone: 12-14-2021 10:42-0400 Body weight 105.[address] Aleena London Work Phone: [facility] Work Phone: 12-14-2021 10:42-0400 Diastolic blood pressure 88 mm[Hg] Dr. Aleena London Work Phone: [facility] Work Phone: 12-14-2021 10:42-0400 Systolic blood pressure 120 mm[Hg] Dr. Aleena London Work Phone: [facility] Work Phone: 11-27-2021 03:46-0400 Diastolic blood pressure 75 mm[Hg] Dr. Aleena London Work Phone: [facility] Work Phone: 11-27-2021 03:46-0400 Heart rate 70 /min Dr. Aleena London Work Phone: [facility] Work Phone: 11-27-2021 03:46-0400 Respiratory rate 15 /min Dr. Aleena London Work Phone: [facility] Work Phone: 11-27-2021 03:46-0400 Systolic blood pressure 125 mm[Hg] Dr. Aleena London Work Phone: [facility] Work Phone: 11-27-2021 01:16-0400 Body height 167.[address] Aleena London Work Phone: [facility] Work Phone: 11-27-2021 01:16-0400 Body mass index (BMI) [Ratio] 38.6 kg/m2 Dr. Aleena London Work Phone: [facility] Work Phone: 11-27-2021 01:16-0400 Body temperature 98.3 [degF] Dr. Aleena London Work Phone: [facility] Work Phone: 11-27-2021 01:16-0400 Body weight 108.[address] Aleena London Work Phone: [facility] Work Phone: 11-27-2021 01:16-0400 SaO2% (BldA) [Mass fraction] 99 % Dr. Aleena London Work Phone: [facility] Work Phone: 11-18-2021 15:03-0400 Body mass index (BMI) [Ratio] 37.8 kg/m2 Dr. Aleena London Work Phone: [facility] Work Phone: 11-18-2021 15:03-0400 Body temperature 98.9 [degF] Dr. Aleena London Work Phone: [facility] Work Phone: 11-18-2021 15:03-0400 Body weight 106.[address] Aleena London Work Phone: [facility] Work Phone: 11-18-2021 15:03-0400 Diastolic blood pressure 78 mm[Hg] Dr. Aleena London Work Phone: [facility] Work Phone: 11-18-2021 15:03-0400 Heart rate 83 /min Dr. Aleena London Work Phone: [facility] Work Phone: 11-18-2021 15:03-0400 Respiratory rate 16 /min Dr. Aleena London Work Phone: [facility] Work Phone: 11-18-2021 15:03-0400 SaO2% (BldA) [Mass fraction] 98 % Dr. Aleena London Work Phone: [facility] Work Phone: 11-18-2021 15:03-0400 Systolic blood pressure 126 mm[Hg] Dr. Aleena London Work Phone: [facility] Work Phone: 11-18-2021 09:43-0400 Body mass index (BMI) [Ratio] 37.6 kg/m2 Dr. Aleena London Work Phone: [facility] Work Phone: 11-18-2021 09:43-0400 Body temperature 98.7 [degF] Dr. Aleena London Work Phone: [facility] Work Phone: 11-18-2021 09:43-0400 Body weight 105.[address] Aleena London Work Phone: [facility] Work Phone: 11-18-2021 09:43-0400 Diastolic blood pressure 76 mm[Hg] Dr. Aleena London Work Phone: [facility] Work Phone: 11-18-2021 09:43-0400 Heart rate 81 /min Dr. Aleena London Work Phone: [facility] Work Phone: 11-18-2021 09:43-0400 Respiratory rate 16 /min Dr. Aleena Lnodon Work Phone: [facility] Work Phone: 11-18-2021 09:43-0400 SaO2% (BldA) [Mass fraction] 98 % Dr. Aleena London Work Phone: [facility] Work Phone: 11-18-2021 09:43-0400 Systolic blood pressure 118 mm[Hg] Dr. Aleena London Work Phone: [facility] Work Phone: 11-01-2021 13:12-0400 Body mass index (BMI) [Ratio] 38.2 kg/m2 Dr. Aleena London Work Phone: [facility] Work Phone: 11-01-2021 13:12-0400 Body temperature 99 [degF] Dr. Aleena London Work Phone: [facility] Work Phone: 11-01-2021 13:12-0400 Body weight 107.[address] Aleena London Work Phone: [facility] Work Phone: 11-01-2021 13:12-0400 Diastolic blood pressure 72 mm[Hg] Dr. Aleena London Work Phone: [facility] Work Phone: 11-01-2021 13:12-0400 Heart rate 82 /min Dr. Aleena London Work Phone: [facility] Work Phone: 11-01-2021 13:12-0400 Respiratory rate 16 /min Dr. Aleena London Work Phone: [facility] Work Phone: 11-01-2021 13:12-0400 SaO2% (BldA) [Mass fraction] 98 % Dr. Aleena London Work Phone: [facility] Work Phone: 11-01-2021 13:12-0400 Systolic blood pressure 118 mm[Hg] Dr. Aleena London Work Phone: [facility] Work Phone: 10-29-2021 17:52-0400 Body temperature 100.1 [degF] Dr. Aleena London Work Phone: [facility] Work Phone: 10-29-2021 17:52-0400 Diastolic blood pressure 80 mm[Hg] Dr. Aleena London Work Phone: [facility] Work Phone: 10-29-2021 17:52-0400 Heart rate 105 /min Dr. Aleena London Work Phone: [facility] Work Phone: 10-29-2021 17:52-0400 Respiratory rate 15 /min Dr. Aleena London Work Phone: [facility] Work Phone: 10-29-2021 17:52-0400 SaO2% (BldA) [Mass fraction] 99 % Dr. Aleena London Work Phone: [facility] Work Phone: 10-29-2021 17:52-0400 Systolic blood pressure 150 mm[Hg] Dr. Aleena London Work Phone: [facility] Work Phone: 10-29-2021 17:52-0400 Body temperature 100.1 [degF] Dr. Aleena London Work Phone: [facility] Work Phone: 10-29-2021 17:52-0400 Diastolic blood pressure 80 mm[Hg] Dr. Aleena London Work Phone: [facility] Work Phone: 10-29-2021 17:52-0400 Heart rate 105 /min Dr. Aleena London Work Phone: [facility] Work Phone: 10-29-2021 17:52-0400 Respiratory rate 15 /min Dr. Aleena London Work Phone: [facility] Work Phone: 10-29-2021 17:52-0400 SaO2% (BldA) [Mass fraction] 99 % Dr. Aleena London Work Phone: [facility] Work Phone: 10-29-2021 17:52-0400 Systolic blood pressure 150 mm[Hg] Dr. Aleena London Work Phone: [facility] Work Phone: 10-15-2021 11:07-0400 Body mass index (BMI) [Ratio] 37.4 kg/m2 Dr. Aleena London Work Phone: [facility] Work Phone: 10-15-2021 11:07-0400 Body temperature 98.1 [degF] Dr. Aleena London Work Phone: [facility] Work Phone: 10-15-2021 11:07-0400 Body weight 105.[address] Aleena London Work Phone: [facility] Work Phone: 10-15-2021 11:07-0400 Diastolic blood pressure 74 mm[Hg] Dr. Aleena London Work Phone: [facility] Work Phone: 10-15-2021 11:07-0400 Heart rate 70 /min Dr. Aleena London Work Phone: [facility] Work Phone: 10-15-2021 11:07-0400 Respiratory rate 16 /min Dr. Aleena London Work Phone: [facility] Work Phone: 10-15-2021 11:07-0400 SaO2% (BldA) [Mass fraction] 98 % Dr. Aleena London Work Phone: [facility] Work Phone: 10-15-2021 11:07-0400 Systolic blood pressure 108 mm[Hg] Dr. Aleena London Work Phone: [facility] Work Phone: 10-15-2021 11:07-0400 Body height 167.[address] Aleena London Work Phone: [facility] Work Phone: 10-15-2021 11:07-0400 Body mass index (BMI) [Ratio] 37.4 kg/m2 Dr. Aleena London Work Phone: [facility] Work Phone: 10-15-2021 11:07-0400 Body temperature 98.1 [degF] Dr. Aleena London Work Phone: [facility] Work Phone: 10-15-2021 11:07-0400 Body weight 105.[address] Aleena London Work Phone: [facility] Work Phone: 10-15-2021 11:07-0400 Diastolic blood pressure 74 mm[Hg] Dr. Aleena London Work Phone: [facility] Work Phone: 10-15-2021 11:07-0400 Heart rate 70 /min Dr. Aleena London Work Phone: [facility] Work Phone: 10-15-2021 11:07-0400 Respiratory rate 16 /min Dr. Aleena London Work Phone: [facility] Work Phone: 10-15-2021 11:07-0400 SaO2% (BldA) [Mass fraction] 98 % Dr. Aleena London Work Phone: [facility] Work Phone: 10-15-2021 11:07-0400 Systolic blood pressure 108 mm[Hg] Dr. Aleena London Work Phone: [facility] Work Phone: 10-13-2021 09:05-0400 Body temperature 98.6 [degF] Dr. Aleena London Work Phone: [facility] Work Phone: 10-13-2021 09:05-0400 Diastolic blood pressure 78 mm[Hg] Dr. Aleena London Work Phone: [facility] Work Phone: 10-13-2021 09:05-0400 Heart rate 86 /min Dr. Aleena London Work Phone: [facility] Work Phone: 10-13-2021 09:05-0400 Respiratory rate 14 /min Dr. Aleena London Work Phone: [facility] Work Phone: 10-13-2021 09:05-0400 SaO2% (BldA) [Mass fraction] 97 % Dr. Aleena London Work Phone: [facility] Work Phone: 10-13-2021 09:05-0400 Systolic blood pressure 126 mm[Hg] Dr. Aleena London Work Phone: [facility] Work Phone: 10-13-2021 09:05-0400 Body temperature 98.6 [degF] Dr. Aleena London Work Phone: [facility] Work Phone: 10-13-2021 09:05-0400 Diastolic blood pressure 78 mm[Hg] Dr. Aleena London Work Phone: [facility] Work Phone: 10-13-2021 09:05-0400 Heart rate 86 /min Dr. Aleena London Work Phone: [facility] Work Phone: 10-13-2021 09:05-0400 Respiratory rate 14 /min Dr. Aleena London Work Phone: [facility] Work Phone: 10-13-2021 09:05-0400 SaO2% (BldA) [Mass fraction] 97 % Dr. Aleena London Work Phone: [facility] Work Phone: 10-13-2021 09:05-0400 Systolic blood pressure 126 mm[Hg] Dr. Aleena London Work Phone: [facility] Work Phone: 10-11-2021 10:37-0400 Body mass index (BMI) [Ratio] 37.5 kg/m2 Dr. Aleena London Work Phone: [facility] Work Phone: 10-11-2021 10:37-0400 Body weight 105.[address] Aleena London Work Phone: [facility] Work Phone: 10-11-2021 10:37-0400 Diastolic blood pressure 82 mm[Hg] Dr. Aleena London Work Phone: [facility] Work Phone: 10-11-2021 10:37-0400 Systolic blood pressure 122 mm[Hg] Dr. Aleena London Work Phone: [facility] Work Phone: 10-11-2021 10:37-0400 Body height 167.[address] Aleena London Work Phone: [facility] Work Phone: 10-11-2021 10:37-0400 Body mass index (BMI) [Ratio] 37.5 kg/m2 Dr. Aleena London Work Phone: [facility] Work Phone: 10-11-2021 10:37-0400 Body weight 105.[address] Aleena London Work Phone: [facility] Work Phone: 10-11-2021 10:37-0400 Diastolic blood pressure 82 mm[Hg] Dr. Aleena London Work Phone: [facility] Work Phone: 10-11-2021 10:37-0400 Systolic blood pressure 122 mm[Hg] Dr. Aleena London Work Phone: [facility] Work Phone: 09-27-2021 14:08-0400 Body mass index (BMI) [Ratio] 37.8 kg/m2 Dr. Aleena London Work Phone: [facility] Work Phone: 09-27-2021 14:08-0400 Body weight 106.[address] Aleena London Work Phone: [facility] Work Phone: 09-27-2021 14:08-0400 Diastolic blood pressure 78 mm[Hg] Dr. Aleena London Work Phone: [facility] Work Phone: 09-27-2021 14:08-0400 Heart rate 74 /min Dr. Aleena London Work Phone: [facility] Work Phone: 09-27-2021 14:08-0400 Respiratory rate 18 /min Dr. Aleena London Work Phone: [facility] Work Phone: 09-27-2021 14:08-0400 SaO2% (BldA) [Mass fraction] 98 % Dr. Aleena London Work Phone: [facility] Work Phone: 09-27-2021 14:08-0400 Systolic blood pressure 114 mm[Hg] Dr. Aleena London Work Phone: [facility] Work Phone: 09-27-2021 14:08-0400 Body mass index (BMI) [Ratio] 37.8 kg/m2 Dr. Aleena London Work Phone: [facility] Work Phone: 09-27-2021 14:08-0400 Body weight 106.[address] Aleena London Work Phone: [facility] Work Phone: 09-27-2021 14:08-0400 Diastolic blood pressure 78 mm[Hg] Dr. Aleena London Work Phone: [facility] Work Phone: 09-27-2021 14:08-0400 Heart rate 74 /min Dr. Aleena London Work Phone: [facility] Work Phone: 09-27-2021 14:08-0400 Respiratory rate 18 /min Dr. Aleena London Work Phone: [facility] Work Phone: 09-27-2021 14:08-0400 SaO2% (BldA) [Mass fraction] 98 % Dr. Aleena London Work Phone: [facility] Work Phone: 09-27-2021 14:08-0400 Systolic blood pressure 114 mm[Hg] Dr. Aleena London Work Phone: [facility] Work Phone: 09-22-2021 14:55-0400 Body mass index (BMI) [Ratio] 37.9 kg/m2 Dr. Aleena London Work Phone: [facility] Work Phone: 09-22-2021 14:55-0400 Body temperature 98.7 [degF] Dr. Aleena London Work Phone: [facility] Work Phone: 09-22-2021 14:55-0400 Body weight 106.[address] Aleena London Work Phone: [facility] Work Phone: 09-22-2021 14:55-0400 Diastolic blood pressure 82 mm[Hg] Dr. Aleena London Work Phone: [facility] Work Phone: 09-22-2021 14:55-0400 Heart rate 88 /min Dr. Aleena London Work Phone: [facility] Work Phone: 09-22-2021 14:55-0400 Respiratory rate 14 /min Dr. Aleena London Work Phone: [facility] Work Phone: 09-22-2021 14:55-0400 SaO2% (BldA) [Mass fraction] 99 % Dr. Aleena London Work Phone: [facility] Work Phone: 09-22-2021 14:55-0400 Systolic blood pressure 114 mm[Hg] Dr. Aleena London Work Phone: [facility] Work Phone: 09-22-2021 14:55-0400 Body height 167.[address] Aleena London Work Phone: [facility] Work Phone: 09-22-2021 14:55-0400 Body mass index (BMI) [Ratio] 37.9 kg/m2 Dr. Aleena London Work Phone: [facility] Work Phone: 09-22-2021 14:55-0400 Body temperature 98.7 [degF] Dr. Aleena London Work Phone: [facility] Work Phone: 09-22-2021 14:55-0400 Body weight 106.[address] Aleena London Work Phone: [facility] Work Phone: 09-22-2021 14:55-0400 Diastolic blood pressure 82 mm[Hg] Dr. Aleena Londno Work Phone: [facility] Work Phone: 09-22-2021 14:55-0400 Heart rate 88 /min Dr. Aleena London Work Phone: [facility] Work Phone: 09-22-2021 14:55-0400 Respiratory rate 14 /min Dr. Aleena London Work Phone: [facility] Work Phone: 09-22-2021 14:55-0400 SaO2% (BldA) [Mass fraction] 99 % Dr. Aleena London Work Phone: [facility] Work Phone: 09-22-2021 14:55-0400 Systolic blood pressure 114 mm[Hg] Dr. Aleena London Work Phone: [facility] Work Phone: 09-15-2021 08:29-0400 Body mass index (BMI) [Ratio] 37.9 kg/m2 Dr. Aleena London Work Phone: [facility] Work Phone: 09-15-2021 08:29-0400 Body weight 106.[address] Aleena London Work Phone: [facility] Work Phone: 09-15-2021 08:29-0400 Diastolic blood pressure 82 mm[Hg] Dr. Aleena London Work Phone: [facility] Work Phone: 09-15-2021 08:29-0400 Heart rate 87 /min Dr. Aleena London Work Phone: [facility] Work Phone: 09-15-2021 08:29-0400 SaO2% (BldA) [Mass fraction] 98 % Dr. Aleena London Work Phone: [facility] Work Phone: 09-15-2021 08:29-0400 Systolic blood pressure 117 mm[Hg] Dr. Aleena London Work Phone: [facility] Work Phone: 09-15-2021 08:29-0400 Body mass index (BMI) [Ratio] 37.9 kg/m2 Dr. Aleena London Work Phone: [facility] Work Phone: 09-15-2021 08:29-0400 Body weight 106.[address] Aleena London Work Phone: [facility] Work Phone: 09-15-2021 08:29-0400 Diastolic blood pressure 82 mm[Hg] Dr. Aleena London Work Phone: [facility] Work Phone: 09-15-2021 08:29-0400 Heart rate 87 /min Dr. Aleena London Work Phone: [facility] Work Phone: 09-15-2021 08:29-0400 SaO2% (BldA) [Mass fraction] 98 % Dr. Aleena London Work Phone: [facility] Work Phone: 09-15-2021 08:29-0400 Systolic blood pressure 117 mm[Hg] Dr. Aleena London Work Phone: [facility] Work Phone: 09-09-2021 09:58-0400 Body mass index (BMI) [Ratio] 37.9 kg/m2 Dr. Aleena London Work Phone: [facility] Work Phone: 09-09-2021 09:58-0400 Body weight 106.[address] Aleena London Work Phone: [facility] Work Phone: 09-09-2021 09:58-0400 Diastolic blood pressure 79 mm[Hg] Dr. Aleena London Work Phone: [facility] Work Phone: 09-09-2021 09:58-0400 Systolic blood pressure 120 mm[Hg] Dr. Aleena oLndon Work Phone: [facility] Work Phone: 09-09-2021 09:58-0400 Body mass index (BMI) [Ratio] 37.9 kg/m2 Dr. Aleena London Work Phone: [facility] Work Phone: 09-09-2021 09:58-0400 Body weight 106.[address] Aleena London Work Phone: [facility] Work Phone: 09-09-2021 09:58-0400 Diastolic blood pressure 79 mm[Hg] Dr. Aleena London Work Phone: [facility] Work Phone: 09-09-2021 09:58-0400 Systolic blood pressure 120 mm[Hg] Dr. Aleena London Work Phone: [facility] Work Phone: 09-07-2021 11:24-0400 Body temperature 98.2 [degF] Dr. Aleena London Work Phone: [facility] Work Phone: 09-07-2021 11:24-0400 Diastolic blood pressure 86 mm[Hg] Dr. Aleena London Work Phone: [facility] Work Phone: 09-07-2021 11:24-0400 Heart rate 109 /min Dr. Aleena London Work Phone: [facility] Work Phone: 09-07-2021 11:24-0400 Respiratory rate 16 /min Dr. Aleena London Work Phone: [facility] Work Phone: 09-07-2021 11:24-0400 SaO2% (BldA) [Mass fraction] 99 % Dr. Aleena London Work Phone: [facility] Work Phone: 09-07-2021 11:24-0400 Systolic blood pressure 132 mm[Hg] Dr. Aleena London Work Phone: [facility] Work Phone: 09-07-2021 11:24-0400 Body temperature 98.2 [degF] Dr. Aleena London Work Phone: [facility] Work Phone: 09-07-2021 11:24-0400 Diastolic blood pressure 86 mm[Hg] Dr. Aleena London Work Phone: [facility] Work Phone: 09-07-2021 11:24-0400 Heart rate 109 /min Dr. Aleena London Work Phone: [facility] Work Phone: 09-07-2021 11:24-0400 Respiratory rate 16 /min Dr. Aleena London Work Phone: [facility] Work Phone: 09-07-2021 11:24-0400 SaO2% (BldA) [Mass fraction] 99 % Dr. Aleena London Work Phone: [facility] Work Phone: 09-07-2021 11:24-0400 Systolic blood pressure 132 mm[Hg] Dr. Aleena London Work Phone: [facility] Work Phone: 08-25-2021 22:48-0400 Diastolic blood pressure 83 mm[Hg] Dr. Aleena London Work Phone: [facility] Work Phone: 08-25-2021 22:48-0400 Heart rate 98 /min Dr. Aleena London Work Phone: [facility] Work Phone: 08-25-2021 22:48-0400 SaO2% (BldA) [Mass fraction] 77 % Dr. Aleena London Work Phone: [facility] Work Phone: 08-25-2021 22:48-0400 Systolic blood pressure 114 mm[Hg] Dr. Aleena London Work Phone: [facility] Work Phone: 08-25-2021 22:11-0400 Body temperature 98.2 [degF] Dr. Aleena London Work Phone: [facility] Work Phone: 08-25-2021 22:01-0400 Body height 167.[address] Aleena London Work Phone: [facility] Work Phone: 08-25-2021 22:01-0400 Body mass index (BMI) [Ratio] 38 kg/m2 Dr. Aleena London Work Phone: [facility] Work Phone: 08-25-2021 22:01-0400 Body weight 107.[address] Aleena London Work Phone: [facility] Work Phone: 08-25-2021 22:01-0400 Respiratory rate 16 /min Dr. Aleena London Work Phone: [facility] Work Phone: 08-20-2021 18:00-0400 Body temperature 98.4 [degF] Dr. Aleena London Work Phone: [facility] Work Phone: 08-20-2021 18:00-0400 Diastolic blood pressure 80 mm[Hg] Dr. Aleena London Work Phone: [facility] Work Phone: 08-20-2021 18:00-0400 Heart rate 80 /min Dr. Aleena London Work Phone: [facility] Work Phone: 08-20-2021 18:00-0400 Respiratory rate 16 /min Dr. Aleena London Work Phone: [facility] Work Phone: 08-20-2021 18:00-0400 SaO2% (BldA) [Mass fraction] 100 % Dr. Aleena London Work Phone: [facility] Work Phone: 08-20-2021 18:00-0400 Systolic blood pressure 142 mm[Hg] Dr. Aleena London Work Phone: [facility] Work Phone: 08-20-2021 15:33-0400 Body height 167.[address] Aleena London Work Phone: [facility] Work Phone: 08-20-2021 15:33-0400 Body mass index (BMI) [Ratio] 38 kg/m2 Dr. Aleena London Work Phone: [facility] Work Phone: 08-20-2021 15:33-0400 Body weight 106.[address] Aleena London Work Phone: [facility] Work Phone: 08-11-2021 15:29-0400 Diastolic blood pressure 80 mm[Hg] Dr. Aleena London Work Phone: [facility] Work Phone: 08-11-2021 15:29-0400 Heart rate 90 /min Dr. Aleena London Work Phone: [facility] Work Phone: 08-11-2021 15:29-0400 Systolic blood pressure 120 mm[Hg] Dr. Aleena London Work Phone: [facility] Work Phone: 08-11-2021 15:29-0400 Diastolic blood pressure 80 mm[Hg] Dr. Aleena London Work Phone: [facility] Work Phone: 08-11-2021 15:29-0400 Heart rate 90 /min Dr. Aleena London Work Phone: [facility] Work Phone: 08-11-2021 15:29-0400 Systolic blood pressure 120 mm[Hg] Dr. Aleena London Work Phone: [facility] Work Phone: 08-11-2021 15:26-0400 Body mass index (BMI) [Ratio] 38.5 kg/m2 Dr. Aleena London Work Phone: [facility] Work Phone: 08-11-2021 15:26-0400 Body temperature 97.6 [degF] Dr. Aleena London Work Phone: [facility] Work Phone: 08-11-2021 15:26-0400 Body weight 108.[address] Aleena London Work Phone: [facility] Work Phone: 08-11-2021 15:26-0400 SaO2% (BldA) [Mass fraction] 98 % Dr. Aleena London Work Phone: [facility] Work Phone: 08-11-2021 15:26-0400 Body mass index (BMI) [Ratio] 38.5 kg/m2 Dr. Aleena London Work Phone: [facility] Work Phone: 08-11-2021 15:26-0400 Body temperature 97.6 [degF] Dr. Aleena London Work Phone: [facility] Work Phone: 08-11-2021 15:26-0400 Body weight 108.[address] Aleena London Work Phone: [facility] Work Phone: 08-11-2021 15:26-0400 SaO2% (BldA) [Mass fraction] 98 % Dr. Aleena London Work Phone: [facility] Work Phone: 08-09-2021 11:09-0400 Body mass index (BMI) [Ratio] 38.5 kg/m2 Dr. Aleena London Work Phone: [facility] Work Phone: 08-09-2021 11:09-0400 Body weight 108.[address] Aleena London Work Phone: [facility] Work Phone: 08-09-2021 11:09-0400 Diastolic blood pressure 78 mm[Hg] Dr. Aleena London Work Phone: [facility] Work Phone: 08-09-2021 11:09-0400 Systolic blood pressure 110 mm[Hg] Dr. Aleena London Work Phone: [facility] Work Phone: 08-09-2021 11:09-0400 Body mass index (BMI) [Ratio] 38.5 kg/m2 Dr. Aleena London Work Phone: [facility] Work Phone: 08-09-2021 11:09-0400 Body weight 108.[address] Aleena London Work Phone: [facility] Work Phone: 08-09-2021 11:09-0400 Diastolic blood pressure 78 mm[Hg] Dr. lAeena London Work Phone: [facility] Work Phone: 08-09-2021 11:09-0400 Systolic blood pressure 110 mm[Hg] Dr. Aleena London Work Phone: [facility] Work Phone: 07-15-2021 09:03-0500 Body mass index (BMI) [Ratio] 38.2 kg/m2 Dr. Aleena London Work Phone: [facility] Work Phone: 07-15-2021 09:03-0500 Body weight 107.[address] Aleena London Work Phone: [facility] Work Phone: 07-15-2021 09:03-0500 Diastolic blood pressure 88 mm[Hg] Dr. Aleena London Work Phone: [facility] Work Phone: 07-15-2021 09:03-0500 Heart rate 76 /min Dr. Aleena London Work Phone: [facility] Work Phone: 07-15-2021 09:03-0500 Respiratory rate 16 /min Dr. Aleena London Work Phone: [facility] Work Phone: 07-15-2021 09:03-0500 Systolic blood pressure 120 mm[Hg] Dr. Aleena London Work Phone: [facility] Work Phone: 06-29-2021 10:05-0500 Body mass index (BMI) [Ratio] 39.1 kg/m2 Dr. Aleena London Work Phone: [facility] Work Phone: 06-29-2021 10:05-0500 Body weight 109.[address] Aleena London Work Phone: [facility] Work Phone: 06-29-2021 10:05-0500 Diastolic blood pressure 74 mm[Hg] Dr. Aleena London Work Phone: [facility] Work Phone: 06-29-2021 10:05-0500 Heart rate 91 /min Dr. Aleena London Work Phone: [facility] Work Phone: 06-29-2021 10:05-0500 Respiratory rate 18 /min Dr. Aleena London Work Phone: [facility] Work Phone: 06-29-2021 10:05-0500 SaO2% (BldA) [Mass fraction] 96 % Dr. Aleena London Work Phone: [facility] Work Phone: 06-29-2021 10:05-0500 Systolic blood pressure 115 mm[Hg] Dr. Aleena London Work Phone: [facility] Work Phone: 06-28-2021 12:11-0500 Body temperature 97.4 [degF] Dr. Aleena London Work Phone: [facility] Work Phone: 06-28-2021 12:11-0500 Body weight 109.[address] Aleena London Work Phone: [facility] Work Phone: 06-28-2021 12:11-0500 Diastolic blood pressure 78 mm[Hg] Dr. Aleena London Work Phone: [facility] Work Phone: 06-28-2021 12:11-0500 Heart rate 98 /min Dr. Aleena London Work Phone: [facility] Work Phone: 06-28-2021 12:11-0500 Respiratory rate 16 /min Dr. Aleena London Work Phone: [facility] Work Phone: 06-28-2021 12:11-0500 SaO2% (BldA) [Mass fraction] 98 % Dr. Aleena London Work Phone: [facility] Work Phone: 06-28-2021 12:11-0500 Systolic blood pressure 140 mm[Hg] Dr. Aleena London Work Phone: [facility] Work Phone: 06-21-2021 19:21-0500 Heart rate 78 /min Dr. Aleena London Work Phone: [facility] Work Phone: 06-21-2021 19:21-0500 Respiratory rate 15 /min Dr. Aleena London Work Phone: [facility] Work Phone: 06-21-2021 19:21-0500 SaO2% (BldA) [Mass fraction] 99 % Dr. Aleena London Work Phone: [facility] Work Phone: 06-21-2021 15:48-0500 Body mass index (BMI) [Ratio] 39 kg/m2 Dr. Aleena London Work Phone: [facility] Work Phone: 06-21-2021 15:48-0500 Body temperature 96.8 [degF] Dr. Aleena London Work Phone: [facility] Work Phone: 06-21-2021 15:48-0500 Body weight 109.[address] Aleena London Work Phone: [facility] Work Phone: 06-21-2021 15:48-0500 Diastolic blood pressure 88 mm[Hg] Dr. Aleena London Work Phone: [facility] Work Phone: 06-21-2021 15:48-0500 Systolic blood pressure 132 mm[Hg] Dr. Aleena London Work Phone: [facility] Work Phone: 06-08-2021 08:36-0500 Body mass index (BMI) [Ratio] 39.2 kg/m2 Dr. Aleena London Work Phone: [facility] Work Phone: 06-08-2021 08:36-0500 Body temperature 99.8 [degF] Dr. Aleena London Work Phone: [facility] Work Phone: 06-08-2021 08:36-0500 Body weight 110.[address] Aleena London Work Phone: [facility] Work Phone: 06-08-2021 08:36-0500 Diastolic blood pressure 84 mm[Hg] Dr. Aleena London Work Phone: [facility] Work Phone: 06-08-2021 08:36-0500 Heart rate 85 /min Dr. Aleena London Work Phone: [facility] Work Phone: 06-08-2021 08:36-0500 Respiratory rate 16 /min Dr. Aleena London Work Phone: [facility] Work Phone: 06-08-2021 08:36-0500 SaO2% (BldA) [Mass fraction] 99 % Dr. Aleena London Work Phone: [facility] Work Phone: 06-08-2021 08:36-0500 Systolic blood pressure 140 mm[Hg] Dr. Aleena London Work Phone: [facility] Work Phone: 06-03-2021 07:14-0500 Body mass index (BMI) [Ratio] 38.9 kg/m2 Dr. Aleena London Work Phone: [facility] Work Phone: 06-03-2021 07:14-0500 Body temperature 98.2 [degF] Dr. Aleena London Work Phone: [facility] Work Phone: 06-03-2021 07:14-0500 Body weight 109.[address] Aleena London Work Phone: [facility] Work Phone: 06-03-2021 07:14-0500 Diastolic blood pressure 88 mm[Hg] Dr. Aleena London Work Phone: [facility] Work Phone: 06-03-2021 07:14-0500 Heart rate 83 /min Dr. Aleena London Work Phone: [facility] Work Phone: 06-03-2021 07:14-0500 Respiratory rate 14 /min Dr. Aleena London Work Phone: [facility] Work Phone: 06-03-2021 07:14-0500 SaO2% (BldA) [Mass fraction] 99 % Dr. Aleena London Work Phone: [facility] Work Phone: 06-03-2021 07:14-0500 Systolic blood pressure 146 mm[Hg] Dr. Aleena London Work Phone: [facility] Work Phone: 05-05-2021 09:43-0500 Body mass index (BMI) [Ratio] 38.9 kg/m2 Dr. Aleena London Work Phone: [facility] Work Phone: 05-05-2021 09:43-0500 Body temperature 98 [degF] Dr. Aleena London Work Phone: [facility] Work Phone: 05-05-2021 09:43-0500 Body weight 109.[address] Aleena London Work Phone: [facility] Work Phone: 05-05-2021 09:43-0500 Diastolic blood pressure 68 mm[Hg] Dr. Aleena London Work Phone: [facility] Work Phone: 05-05-2021 09:43-0500 Heart rate 72 /min Dr. Aleena London Work Phone: [facility] Work Phone: 05-05-2021 09:43-0500 Respiratory rate 16 /min Dr. Aleena London Work Phone: [facility] Work Phone: 05-05-2021 09:43-0500 SaO2% (BldA) [Mass fraction] 97 % Dr. Aleena London Work Phone: [facility] Work Phone: 05-05-2021 09:43-0500 Systolic blood pressure 110 mm[Hg] Dr. Aleena London Work Phone: [facility] Work Phone: 05-03-2021 08:06-0500 Body mass index (BMI) [Ratio] 38.7 kg/m2 Dr. Aleena London Work Phone: [facility] Work Phone: 05-03-2021 08:06-0500 Body temperature 98.7 [degF] Dr. Aleena London Work Phone: [facility] Work Phone: 05-03-2021 08:06-0500 Body weight 108.[address] Aleena London Work Phone: [facility] Work Phone: 05-03-2021 08:06-0500 Diastolic blood pressure 70 mm[Hg] Dr. Aleena London Work Phone: [facility] Work Phone: 05-03-2021 08:06-0500 Heart rate 92 /min Dr. Aleena London Work Phone: [facility] Work Phone: 05-03-2021 08:06-0500 Respiratory rate 16 /min Dr. Aleena London Work Phone: [facility] Work Phone: 05-03-2021 08:06-0500 SaO2% (BldA) [Mass fraction] 98 % Dr. Aleena London Work Phone: [facility] Work Phone: 05-03-2021 08:06-0500 Systolic blood pressure 106 mm[Hg] Dr. Aleena London Work Phone: [facility] Work Phone: 04-19-2017 11:55-0500 BMI (Body Mass Index) 38.51 kg/m2 Hanh Balderas NP [facility] 04-19-2017 11:55-0500 BP Diastolic 72 mm[Hg] Hanh Balderas NP [facility] 04-19-2017 11:55-0500 BP Systolic 113 mm[Hg] Hanh Balderas NP [facility] 04-19-2017 11:55-0500 Weight 108.23 kg aHnh Balderas NP [facility] 04-10-2017 05:19-0500 BMI (Body Mass Index) 38.73 kg/m2 Cassidy Moore MD [facility] 04-10-2017 05:19-0500 BP Diastolic 78 mm[Hg] Cassidy Moore MD [facility] 04-10-2017 05:19-0500 BP Systolic 123 mm[Hg] Cassidy Moore MD [facility] 04-10-2017 05:19-0500 Weight 108.86 kg Cassidy Moore MD [facility] 03-13-2017 09:06-0400 BMI (Body Mass Index) 38.83 kg/m2 Hanh Balderas NP [facility] 03-13-2017 09:06-0400 BP Diastolic 77 mm[Hg] Hanh [place] [employer] [facility] 03-13-2017 09:06-0400 BP Systolic 122 mm[Hg] Hanh Balderas [employer] [facility] 03-13-2017 09:06-0400 Pulse (Heart Rate) 95 /min Hanh Balderas NP [facility] 03-13-2017 09:06-0400 Weight 109.14 kg Hanh Balderas NP [facility] 02-17-2017 06:51-0400 BMI (Body Mass Index) 38.41 kg/m2 Cassidy Moore MD [facility] 02-17-2017 06:51-0400 Body Temperature 98.4 [degF] Cassidy Moore MD [facility] 02-17-2017 06:51-0400 BP Diastolic 79 mm[Hg] Cassidy Moore MD [facility] 02-17-2017 06:51-0400 BP Systolic 113 mm[Hg] Cassidy Moore MD [facility] 02-17-2017 06:51-0400 Pulse (Heart Rate) 97 /min Cassidy Moore MD [facility] 02-17-2017 06:51-0400 Respiratory Rate 16 /min Cassidy Moore MD [facility] 02-17-2017 06:51-0400 Weight 107.96 kg Cassidy Moore MD [facility] 02-09-2017 11:21-0400 BMI (Body Mass Index) 38.51 kg/m2 Cassidy Moore MD [facility] 02-09-2017 11:21-0400 Body Temperature 98.5 [degF] Cassidy Moore MD [facility] 02-09-2017 11:21-0400 BP Diastolic 79 mm[Hg] Cassidy Moore MD [facility] 02-09-2017 11:21-0400 BP Systolic 122 mm[Hg] Cassidy Moore MD [facility] 02-09-2017 11:21-0400 Pulse (Heart Rate) 96 /min Cassidy Moore MD [facility] 02-09-2017 11:21-0400 Respiratory Rate 16 /min Cassidy Moore MD [facility] 02-09-2017 11:21-0400 Weight 108.23 kg Cassidy Moore MD [facility] 01-17-2017 13:53-0400 BMI (Body Mass Index) 38.64 kg/m2 Hanh Balderas [employer] [facility] 01-17-2017 13:53-0400 Body Temperature 98.2 [degF] Hanh [place] [employer] [facility] 01-17-2017 13:53-0400 BP Diastolic 85 mm[Hg] Hanh [place] [employer] [facility] 01-17-2017 13:53-0400 BP Systolic 127 mm[Hg] Hanh [place] [employer] [facility] 01-17-2017 13:53-0400 Height 167.64 cm Hanh Balderas [employer] [facility] 01-17-2017 13:53-0400 Pulse (Heart Rate) 87 /min Hanh [place] [employer] [facility] 01-17-2017 13:53-0400 Respiratory Rate 16 /min Hanh [place] [employer] [facility] 01-17-2017 13:53-0400 Weight 108.59 kg Hanh Balderas [employer] [facility] 01-09-2017 15:06-0400 BMI (Body Mass Index) 38.6 kg/m2 Cassidy Moore MD [facility] 01-09-2017 15:06-0400 Body Temperature 98.2 [degF] Cassidy Moore MD [facility] 01-09-2017 15:06-0400 BP Diastolic 76 mm[Hg] Cassidy Moore MD [facility] 01-09-2017 15:0400 BP Systolic 119 mm[Hg] Cassidy Moore MD [facility] 01-09-2017 15:0400 Height 167.64 cm Cassidy Moore MD [facility] 01-09-2017 15:0400 Pulse (Heart Rate) 111 /min Cassidy Moore MD [facility] 01-09-2017 15:060400 Respiratory Rate 16 /min [facility] [facility] 01-09-2017 15:0400 Weight 108.5 kg Cassidy Moore MD [facility] Encounters Encounter Date Encounter Type Care Provider Facility Start: 12-17-2024 ambulatory Efewongbe Oleghe [facility]ili [facility] Start: 12-17-2024 End: 12-17-2024 ambulatory Efewongbe Oleghe Facility:[facility] Start: 12-12-2024 ambulatory Efewongbe Oleghe Facili ty:[facility] Start: 11-29-2024 ambulatory Efewongbe Oleghe Facili ty:[facility] Start: 11-19-2024 End: 11-19-2024 ambulatory Irving Luis Alfredo Facility:[facility] Start: 11-14-2024 End: 11-14-2024 [facility] Start: 11-11-2024 End: 11-11-2024 ambulatory Efewongbe Oleghe [facility] Start: 11-08-2024 End: 11-08-2024 ambulatory Efewongbe Oleghe Facility:[facility] Start: 11-04-2024 End: 11-04-2024 Emergency department patient visit [facility] Start: 11-02-2024 End: 11-02-2024 [facility] Start: 11-01-2024 ambulatory Efewongbe Oleghe Facili ty:[facility] Start: 11-01-2024 End: 11-01-2024 [facility] Start: 10-10-2024 ambulatory Efterriongbe Dimitrye Facili ty:[facility] Start: 10-09-2024 End: 10-09-2024 ambulatory Braulioongnika Moraese [facility] Start: 10-09-2024 End: 10-09-2024 [facility] Start: 10-06-2024 End: 10-06-2024 Emergency department patient visit Chuck JimenezbelaKeo Facility:[facility] Start: 10-04-2024 End: 10-04-2024 [facility] Start: 10-01-2024 End: 10-01-2024 ambulatory Britany Nuñez [facility] Start: 09-27-2024 ambulatory Sigrid Ram [facility] Start: 09-25-2024 Encounter for gynecological examination (general) (routine) with abnormal findings Hanh Balderas [employer] [facility] Start: 09-25-2024 End: 09-25-2024 ambulatory Hanh Balderas [employer] Facility:[facility] Start: 09-24-2024 End: 09-25-2024 ambulatory [facility] Facility:[facility] Start: 09-24-2024 End: 09-24-2024 ambulatory Britany Nuñez Facility:[facility] Start: 09-19-2024 ambulatory Braulioongbe Dimitrye Facili ty:[facility] Start: 09-19-2024 End: 09-19-2024 [facility] Start: 09-17-2024 ambulatory Britany Nuñez [facility] Start: 09-17-2024 End: 09-17-2024 ambulatory Britany Nuñez Facility:[facility] Start: 09-11-2024 End: 09-11-2024 ambulatory Efterriongbe Dimitrye Facility:[facility] Start: 09-04-2024 ambulatory Britany Nuñez [facility] Start: 09-03-2024 End: 09-04-2024 ambulatory Britany Nuñez Facility:[facility] Start: 09-03-2024 End: 09-03-2024 ambulatory Britany Nuñez Facility:[facility] Start: 08-29-2024 End: 08-29-2024 Emergency department patient visit Aleena Moraese Facility:[facility] Start: 08-27-2024 ambulatory Efterriongbe Dimitrye Facili ty:[facility] Start: 08-27-2024 End: 08-27-2024 ambulatory Efterriongbe Oledignae Facility:[facility] Start: 08-21-2024 ambulatory Britany Nuñez [facility] Start: 08-21-2024 End: 08-21-2024 ambulatory Britany Nuñez Facility:[facility] Start: 08-20-2024 End: 08-20-2024 Emergency department patient visit [facility] Start: 08-17-2024 ambulatory Efewongbe Dimitrye Facili ty:[facility] Start: 08-14-2024 End: 08-14-2024 ambulatory Braulioongnika Moraese Facility:[facility] Start: 08-12-2024 ambulatory Efterriongbe Dimitrye Facili ty:[facility] Start: 08-09-2024 End: 08-09-2024 ambulatory Efterriongnika Moraese Facility:[facility] Start: 08-02-2024 End: 08-02-2024 ambulatory Efterriongnika Moraese Facility:[facility] Start: 07-25-2024 ambulatory Efewongbe Dimitrye Facili ty:[facility] Start: 07-25-2024 End: 07-25-2024 Emergency department patient visit Aleena Moraese Facility:[facility] Start: 07-09-2024 ambulatory Efewongbe Oledignae Facili ty:[facility] Start: 07-05-2024 ambulatory Efewongbe Oleghe Facili ty:[facility] Start: 07-01-2024 ambulatory Britany Nuñez [facility] Start: 07-01-2024 End: 07-01-2024 ambulatory Britany Nuñez Facility:[facility] Start: 06-28-2024 End: 06-28-2024 Emergency department patient visit Aleena Moraese Facility:[facility] Start: 06-21-2024 End: 06-25-2024 ambulatory EFTERRIONGNIKA LEZAMA [facility] Start: 06-21-2024 End: 06-21-2024 Office outpatient new 45 minutes Tomasz Ace DPGiselle Work Phone: [facility] Comment on above: Plantar fasciitis (P rimary Dx) Start: 06-21-2024 End: 06-21-2024 ambulatory Efongbe Olee Facility:[facility] Start: 06-18-2024 End: 06-18-2024 [facility] Facility[facility] Start: 06-17-2024 End: 06-17-2024 Emergency [facility] Facility[facility] Start: 06-16-2024 End: 06-16-2024 Emergency department patient visit ADAN MOONEY [facility] Start: 06-13-2024 End: 06-13-2024 Emergency department patient visit KRISTOFERLIZZY BLANIE CADE [facility] Start: 06-12-2024 ambulatory Efewongbe Oleghe Facili ty:[facility] Start: 06-11-2024 End: 06-11-2024 ambulatory [facility] Start: 06-10-2024 ambulatory Efewongbe Oleghe Facili ty:[facility] Start: 06-05-2024 End: 06-05-2024 Emergency department patient visit ULICES BALDERAS [facility] Start: 06-04-2024 End: 06-04-2024 [facility] Start: 05-29-2024 End: 05-29-2024 [facility] Start: 05-28-2024 End: 05-28-2024 Emergency department patient visit ARNOLDO CORCORAN [facility] Start: 05-27-2024 ambulatory Efewongbe Oleghe Facili ty:[facility] Start: 05-27-2024 End: 05-27-2024 [facility]ulatory [facility] Start: 05-20-2024 End: 05-21-2024 Emergency [facility] Facility[facility] Start: 05-18-2024 ambulatory Efewongbe Oleghe Facili ty:[facility] Start: 05-15-2024 End: 05-15-2024 Emergency department patient visit Efewongbe Oleghe Facility:[facility] Start: 05-09-2024 End: 05-10-2024 ambulatory Efewongbe Oleghe Facility:[facility] Start: 05-09-2024 End: 05-09-2024 Emergency department patient visit LIBERTAD FOSTER [facility] Start: 05-06-2024 End: 05-06-2024 Emergency department patient visit Efewongbe Oleghe Facility:[facility] Start: 05-03-2024 End: 05-03-2024 ambulatory Efewongbe Oleghe Facility:[facility] Start: 05-01-2024 End: 05-01-2024 ambulatory Efewongbe Oleghe Facility:[facility] Start: 04-25-2024 ambulatory Efewongbe Oleghe Facili ty:[facility] Start: 04-25-2024 End: 04-25-2024 ambulatory [facility] Facility:[facility] Start: 04-23-2024 End: 04-23-2024 Emergency department patient visit Efterriongbe Oleghe Facility:[facility] Start: 04-23-2024 End: 04-23-2024 ambulatory Efewongbe Oleghe Facility:[facility] Start: 04-16-2024 End: 04-16-2024 ambulatory Efewongbe Oleghe Facility:[facility] Start: 04-15-2024 End: 04-15-2024 Emergency department patient visit KAYLA TIJERINA [facility] Start: 04-09-2024 ambulatory Efewongbe Oleghe Facili ty:[facility] Start: 04-09-2024 End: 04-09-2024 ambulatory Efewongbe Oleghe Facility:[facility] Start: 04-08-2024 End: 04-08-2024 Emergency department patient visit Efewongbe Oleghe Facility:[facility] Start: 04-02-2024 End: 04-02-2024 Emergency department patient visit Efewongbe Oleghe Facility:[facility] Start: 04-01-2024 End: 04-01-2024 [facility] Start: 03-25-[facility]24 ambulatory Efewongbe Oleghe Facili ty:[facility] Start: 03-25-2024 End: 03-25-2024 ambulatory Efewongbe Oleghe Facility:[facility] Start: 03-21-2024 End: 03-21-2024 Emergency department patient visit Efterriongbe Oleghe Facility:[facility] Start: 03-18-2024 End: 03-18-2024 ambulatory Efewongbe Oleghe Facility:[facility] Start: 03-18-2024 Encounter for other [facility]procedural [facility] Start: 03-17-2024 End: 03-17-2024 Emergency department patient visit COREY PRETTY [facility] Start: 03-12-2024 End: 03-12-2024 ambulatory Efewongbe Oleghe Facility:[facility] Start: 03-11-2024 End: 03-11-2024 [facility] Start: 03-08-2024 End: 03-08-2024 ambulatory Efewongbe Oleghe Facility:[facility] Start: 03-08-2024 End: 03-08-2024 ambulatory Efewongbe Oleghe Facility:[facility] Start: 03-07-2024 End: 03-07-2024 Emergency department patient visit LIBERTAD FOSTER [facility] Start: 03-04-2024 ambulatory Efewongbe Oleghe Facili ty:[facility] Start: 03-04-2024 End: 03-04-2024 Emergency department patient visit ADAN MOONEY [facility] Start: 03-04-2024 End: 03-04-2024 ambulatory Efewongbe Oleghe Facility:[facility] Start: 02-28-2024 End: 02-28-2024 ambulatory Efewongbe Oleghe Facility:[facility] Start: 02-28-2024 End: 02-28-2024 [facility] Start: 02-23-2024 End: 02-23-2024 Emergency department patient visit EBENEZER CHAMPION [facility] Start: 02-23-2024 End: 02-23-2024 ambulatory Efewongbe Oleghe Facility:[facility] Start: 02-22-2024 End: 02-22-2024 ambulatory Efewongbe Oleghe Facility:[facility] Start: 02-20-2024 End: 02-20-2024 Emergency department patient visit RADHA MAKI ROBERTMILEY [facility] Start: 02-16-2024 End: 02-16-2024 Emergency department patient visit Efterriongbe Dimitrye Facility:[facility] Start: 02-15-2024 End: 02-15-2024 ambulatory Efewongbe Oleghe Facility:[facility] Start: 02-14-2024 End: 02-14-2024 Emergency department patient visit LIBERTAD FOSTER [facility] Start: 02-11-2024 End: 02-11-2024 Emergency department patient visit BELKYS AVILA [facility] Start: 02-06-2024 End: 02-06-2024 Emergency department patient visit Efterriongbe Dimitrye Facility:[facility] Start: 02-01-2024 ambulatory Efewongbe Oleghe Facili ty:[facility] Start: 02-01-2024 End: 02-01-2024 ambulatory Efewongbe Oleghe Facility:[facility] Start: 01-31-2024 End: 02-01-2024 Emergency department patient visit Efterriongbe Dimitrye Facility:[facility] Start: 01-29-2024 End: 01-29-2024 Emergency department patient visit ULICES BALDERAS [facility] Start: 01-25-2024 End: 01-25-2024 ambulatory Efewongbe Oleghe Facility:[facility] Start: 01-19-2024 End: 01-19-2024 ambulatory Efewongbe Oleghe [facility] Start: 01-16-2024 End: 01-16-2024 Emergency department patient visit NIKKI MILLER [facility] Start: 01-11-2024 End: 01-11-2024 ambulatory Efewongbe Oleghe Facility:[facility] Start: 01-10-2024 ambulatory Efewongbe Oleghe Facili ty:[facility] Start: 01-07-2024 End: 01-07-2024 Emergency department patient visit ANDRIA CADE [facility] Start: 12-20-2023 End: 12-20-2023 Emergency department patient visit Aleena London Facility:[facility] Start: 12-01-2023 End: 12-01-2023 Emergency department patient visit BELKYS BROWN MARGARITA [facility] Start: 11-25-2023 End: 11-25-2023 Emergency department patient visit LIBERTAD SUMNERIMES [facility] Start: 11-20-2023 Orders Only Patrick perez Work Phone: [facility] Comment on above: Pain (Primary Dx) Start: 09-29-2023 End: 09-29-2023 Emergency department patient visit Dr. Aleena London Work Phone: [facility] Work Phone: Start: 09-29-2023 End: 09-29-2023 Dr. Aleena London Work Phone: [facility]-Emergency Department Work Phone: Start: 09-29-2023 Dr. Aleena London Work Phone: [facility]-Outpatient Breast Imaging Work Phone: Start: 09-21-2023 End: 09-21-[address] Aleena London Work Phone: [facility] Work Phone: Start: 09-21-2023 End: 09-21-2023 Dr. Aleena London Work Phone: [facility]-Laboratory, Specimen Work Phone: Start: 09-14-2023 End: 09-14-2023 Dr. Aleena London Work Phone: [facility] Work Phone: Start: 09-14-2023 End: 09-14-2023 Dr. Aleena London Work Phone: [facility] Work Phone: Start: 09-11-2023 End: 09-11-2023 Dr. Aleena London Work Phone: [facility] Work Phone: Start: 09-05-2023 End: 09-05-[address] Aleena London Work Phone: [facility] Work Phone: Start: 09-05-2023 End: 09-05-2023 Dr. Aleena London Work Phone: [facility] Work Phone: Start: 09-05-2023 End: 09-05-2023 Dr. Aleena London Work Phone: [facility] Work Phone: Start: 08-31-2023 End: 08-31-[address] Aleena London Work Phone: [facility] Work Phone: Start: 08-31-2023 End: 08-31-2023 Dr. Aleena London Work Phone: [facility]-Laboratory, Specimen Work Phone: Start: 08-30-2023 End: 08-30-2023 Dr. Aleena London Work Phone: [facility] Work Phone: Start: 08-18-2023 End: 08-18-2023 Dr. Aleena London Work Phone: [facility] Work Phone: Start: 08-16-2023 End: 08-16-2023 ambulatory Argelia Vasquez MD Work Phone: Gynecology Oncology Comment on above: NO SHOW (Primary Dx) Start: 08-16-2023 End: 08-16-2023 Patient encounter procedure Argelia Vasquez MD Work Phone: [facility] Start: 08-11-2023 End: 08-11-[address] Aleena London Work Phone: [facility] Work Phone: Start: 08-11-2023 End: 08-11-2023 Dr. Aleena London Work Phone: [facility] Work Phone: Start: 07-25-2023 End: 07-26-2023 Dr. Aleena London Work Phone: [facility]-Emergency Department Work Phone: Start: 07-24-2023 End: 07-24-[address] Aleena London Work Phone: [facility] Work Phone: Start: 07-24-2023 End: 07-24-2023 Dr. Aleena London Work Phone: [facility] Work Phone: Start: 07-18-2023 End: 07-18-2023 Emergency department patient visit Dr. Aleena London Work Phone: [facility] Work Phone: Start: 07-18-2023 End: 07-18-2023 Dr. Aleena London Work Phone: [facility]-Emergency Department Work Phone: Start: 07-18-2023 End: 07-18-2023 Dr. Aleena London Work Phone: [facility] Work Phone: Start: 07-13-2023 End: 07-13-2023 Dr. Aleena London Work Phone: [facility] Work Phone: Start: 07-06-2023 End: 07-06-2023 Dr. Aleena London Work Phone: [facility] Work Phone: Start: 07-04-2023 End: 07-04-2023 Dr. Aleena London Work Phone: [facility] Work Phone: Start: 06-29-2023 End: 06-29-2023 Dr. Aleena London Work Phone: [facility]-Emergency Department Work Phone: Start: 05-16-2023 End: 05-16-[address] Aleena London Work Phone: [facility] Work Phone: Start: 05-16-2023 End: 05-16-2023 Dr. Aleena London Work Phone: [facility] Work Phone: Start: 05-04-2023 End: 05-04-2023 Emergency department patient visit Dr. Aleena London Work Phone: [facility] Work Phone: Start: 05-04-2023 End: 05-04-2023 Dr. Aleena London Work Phone: [facility]-Emergency [facility] Work Phone: Start: 05-03-2023 End: 05-03-[address] Aleena London Work Phone: [facility] Work Phone: Start: 05-03-2023 End: 05-03-2023 Dr. Aleena London Work Phone: [facility] Work Phone: Start: 04-19-2023 End: 04-19-2023 Dr. Aleena London Work Phone: [facility] Work Phone: Start: 04-17-2023 Dr. Aleena London Work Phone: [facility] Start: 04-17-2023 End: 04-17-2023 Emergency department patient visit Dr. Aleena London Work Phone: [facility] Work Phone: Start: 04-17-2023 End: 04-17-2023 Dr. Aleena London Work Phone: [facility]-Emergency Department Work Phone: Start: 04-12-2023 Telephone encounter Fatmata maher MD Work Phone: [facility] Comment on above: Referral Start: 04-11-2023 End: 04-11-[address] Aleena London Work Phone: [facility] Work Phone: Start: 04-11-2023 End: 04-11-2023 Dr. Aleena London Work Phone: [facility]-Outpatient Breast Imaging Work Phone: Start: 04-06-2023 End: 04-06-[address] Aleena London Work Phone: [facility] Work Phone: Start: 04-06-2023 End: 04-06-2023 Dr. Aleena London Work Phone: [facility] Work Phone: Start: 03-28-2023 End: 03-28-[address] Aleena London Work Phone: [facility] Work Phone: Start: 03-28-2023 End: 03-28-2023 Dr. Aleena London Work Phone: [facility]-Laboratory Work Phone: Start: 03-21-2023 End: 03-21-[address] Aleena London Work Phone: [facility] Work Phone: Start: 03-21-2023 End: 03-21-2023 Dr. Aleena London Work Phone: [facility]-Occupational Therapy Work Phone: Start: 03-16-2023 End: 03-16-2023 Dr. Aleena London Work Phone: [facility] Work Phone: Start: 03-09-2023 End: 03-09-[address] Aleena London Work Phone: [facility] Work Phone: Start: 03-09-2023 End: 03-09-2023 Dr. Aleena London Work Phone: [facility]-Outpatient Pavilion Ultrasound Work Phone: Start: 03-07-2023 End: 03-07-2023 Dr. Aleena London Work Phone: [facility] Work Phone: Start: 03-03-2023 End: 03-03-[address] Aleena London Work Phone: [facility] Work Phone: Start: 03-03-2023 End: 03-03-2023 Dr. Aleena London Work Phone: [facility]-Laboratory Work Phone: Start: 03-01-2023 End: 03-01-2023 Dr. Aleena London Work Phone: [facility] Work Phone: Start: 02-22-2023 End: 02-22-2023 Dr. Aleena London Work Phone: [facility] Work Phone: Start: 02-14-2023 End: 02-14-[address] Aleena London Work Phone: [facility] Work Phone: Start: 02-14-2023 End: 02-14-2023 Dr. Aleena London Work Phone: [facility] Start: 02-13-2023 End: 02-13-2023 Dr. Aleena London Work Phone: [facility] Work Phone: Start: 02-10-2023 End: 02-10-2023 Dr. Aleena London Work Phone: [facility] Work Phone: Start: 02-08-2023 End: 02-08-2023 Emergency department patient visit Dr. Aleena London Work Phone: [facility] Work Phone: Start: 02-08-2023 End: 02-08-2023 Dr. Aleena London Work Phone: [facility]-Emergency Department Work Phone: Start: 02-04-2023 End: 02-04-2023 Emergency department patient visit Dr. Aleena London Work Phone: [facility] Work Phone: Start: 02-04-2023 End: 02-04-2023 Dr. Aleena London [facility] Work [facility]: Start: 02-02-2023 Telephone encounter Nima Kaur MD Work Phone: [facility] Comment on above: Patient Question Start: 01-16-2023 End: 01-16-2023 Dr. Aleena London Work Phone: [facility] Work Phone: Start: 12-25-2022 End: 12-25-2022 Emergency department patient visit Dr. Aleena London Work Phone[facility] Work [facility]: Start: 12-25-2022 End: 12-25-2022 Dr. Aleena London [facility] Work [facility]: Start: 12-15-2022 End: 12-15-[address] Aleena London Work Phone: [facility] Work Phone: Start: 12-15-2022 End: 12-15-[address] Aleena London Work [facility] Work Phone: Start: 12-15-2022 End: 12-15-2022 Dr. Aleena London Work Phone[facility] Work Phone: Start: 12-15-2022 End: 12-15-[address] Aleena London Work Phone: [facility] Work Phone: Start: 12-15-2022 End: 12-15-2022 Dr. Aleena London Work Phone: [facility] Work Phone: Start: 12-08-2022 End: 12-08-[address] Aleena London Work Phone: [facility] Work Phone: Start: 12-08-2022 End: 12-08-2022 Dr. Aleena London Work Phone: [facility] Work Phone: Start: 12-06-2022 End: 12-06-[address] Aleena London Work Phone: [facility] Work Phone: Start: 12-06-2022 End: 12-06-2022 Dr. Aleena London Work Phone: [facility] Work Phone: Start: 11-30-2022 End: 11-30-[address] Aleena London Work Phone: [facility] Work Phone: Start: 11-30-2022 End: 11-30-2022 Dr. Aleena London Work Phone: [facility] Work Phone: Start: 11-28-2022 End: 11-28-[address] Aleena London Work Phone: [facility] Work Phone: Start: 11-28-2022 End: 11-28-[address] Aleena London Work Phone: [facility]-Nuclear Medicine, [facility] Work Phone: Start: 11-28-2022 End: 11-28-2022 Dr. Aleena London Work Phone: [facility], [facility] Work Phone: Start: 11-25-2022 End: 11-25-[address] Aleena London Work Phone: [facility] Work Phone: Start: 11-25-2022 End: 11-25-[address] Aleena London Work Phone: [facility]-Ultrasound, [facility] Work Phone: Start: 11-25-2022 End: 11-25-2022 Dr. Aleena London Work Phone[facility] Work Phone: Start: 11-19-2022 End: 11-20-2022 Emergency department patient visit Dr. Aleena London Work Phone: [facility] Work Phone: Start: 11-19-2022 End: 11-20-2022 Dr. Aleena London Work Phone: [facility]Emer[facility] Work Phone: Start: 11-18-2022 End: 11-18-[address] Aleena London Work Phone: [facility] Work Phone: Start: 11-18-2022 End: 11-18-2022 Dr. Aleena London Work Phone: [facility] Work Phone: Start: 11-16-2022 End: 11-16-2022 ambulatory LUKASZ EUBANKS Facility:[facility] Start: 11-16-2022 End: 11-16-2022 Office outpatient new 60 minutes Lukasz Eubanks MD Work Phone: [facility] Gynecology Oncology Comment on above: Pelvic pain in femal e (Primary Dx) Start: 11-08-2022 End: 11-08-2022 Emergency department patient visit Dr. Aleena London Work Phone: [facility] Work Phone: Start: 11-08-2022 End: 11-08-2022 Dr. Aleena London Work Phone: [facility]-Emergency Department Start: 10-24-2022 End: 10-24-[address] Aleena London Work Phone: [facility] [facility] Work Phone: Start: 10-24-2022 End: 10-24-2022 Dr. Aleena London Work Phone: [facility] Start: 10-11-2022 End: 10-12-2022 Emergency department patient visit ALEEAN LONDON MD Facility:B Start: 10-07-2022 End: 10-07-[address] Aleena London Work Phone: [facility] Work Phone: Start: 10-07-2022 End: 10-07-[address] Aleena London Work Phone: [facility] Work Phone: Start: 10-07-2022 End: 10-07-2022 Dr. Aleena London Work Phone: [facility] Start: 09-20-2022 End: 09-20-[address] Aleena London Work Phone: [facility] Work Phone: Start: 09-20-2022 End: 09-20-2022 Dr. Aleena London Work Phone: [facility] Start: 09-02-2022 End: 09-02-[address] Aleena London Work Phone: [facility] Work Phone: Start: 09-02-2022 End: 09-02-2022 Dr. Aleena London Work Phone: [facility] Internal Medicine Start: 08-26-2022 Non-patient / Non-visit Dr. Taz London Work Phone: [facility] Start: 08-26-2022 End: 08-26-2022 Emergency department patient [facility] Aleena [facility] Work Phone: Start: 08-26-2022 End: 08-26-2022 Dr. Aleena London Work Phone: [facility] Start: 08-22-2022 End: 08-22-[address] [facility] Work Phone: Start: 08-22-2022 End: 08-22-2022 Dr. Aleena London [facility] Phone[facility] Start: 08-17-2022 End: 08-18-2022 Emergency department patient visit Dr. Aleena London Work Phone[facility] Work Phone: Start: 08-17-2022 End: 08-18-2022 Dr. Aleena London Work Phone: [facility] Start: 08-15-2022 End: 08-15-2022 Emergency department patient visit ALAN Garcia QUINN Facility:B Start: 08-15-2022 End: 08-15-2022 Emergency department patient visit ALAN QUINN DO [facility] Start: 08-08-2022 End: 08-08-[address] Aleena London Work Phone: [facility] Work Phone: Start: 08-08-2022 End: 08-08-2022 Dr. Aleena London Work Phone: [facility] Start: 07-25-2022 End: 07-25-[address] Aleena London Work Phone: [facility] Work Phone: Start: 07-25-2022 End: 07-25-2022 Dr. Aleena London Work Phone: [facility] Start: 07-17-2022 End: 07-17-2022 Emergency department patient visit Dr. Aleena London Work Phone: [facility] Work Phone: Start: 07-17-2022 End: 07-17-2022 Dr. Aleena London Work Phone: [facility]Emer[facility] Start: 07-14-2022 End: 07-14-[address] Aleena London Work Phone: [facility] Work Phone: Start: 07-14-2022 End: 07-14-2022 Dr. Aleena London Work Phone: [facility]Laboratory Start: 07-13-2022 End: 07-13-[address] Aleena London Work Phone: [facility] Work Phone: Start: 07-13-2022 End: 07-13-2022 Dr. Aleena London Work Phone: [facility] Start: 07-04-2022 End: 07-05-2022 Emergency department patient visit Provider Pending Facility:[id number] Start: 06-29-2022 End: 06-29-2022 Dr. Aleena London Work Phone: [facility] Internal Medicine Start: 06-23-2022 End: 06-24-2022 Emergency department patient visit [facility] Start: 06-22-2022 End: 06-22-[address] Aleena London Work Phone: [facility] Work Phone: Start: 06-22-2022 End: 06-22-2022 Dr. Aleena London Work Phone: [facility] Start: 06-10-2022 End: 06-10-2022 Emergency department patient visit Dr. Aleena London Work Phone: [facility] Work Phone: Start: 06-10-2022 End: 06-10-2022 Dr. Aleena London Work Phone: [facility]Emer[facility] Department Start: 05-30-2022 End: 05-30-[address] Aleena London Work Phone: [facility] Work Phone: Start: 05-30-2022 End: 05-30-2022 Dr. Aleena London Work Phone: [facility] Internal Medicine Start: 05-25-2022 End: 05-25-2022 Dr. Aleena London Work Phone: [facility] Start: 05-24-2022 End: 05-24-2022 Dr. Aleena London Work Phone: [facility] Start: 05-22-2022 End: 05-23-2022 Emergency department patient visit Dr. Aleena London Work Phone: [facility] Start: 05-22-2022 End: 05-23-2022 Dr. Aleena London Work Phone: [facility] Start: 05-04-2022 End: 05-04-[address] Aleena London Work Phone: [facility] Start: 05-04-2022 End: 05-04-2022 Dr. Aleena London Work Phone: [facility] Start: 04-20-2022 End: 04-20-[address] Aleena London Work Phone: [facility] Start: 04-20-2022 End: 04-20-2022 Dr. Aleena London Work Phone: [facility] Start: 04-19-2022 Non-patient / Non-visit Dr. Taz London Work Phone: [facility] Start: 04-19-2022 Dr. Aleena London Work Phone: [facility] Start: 04-18-2022 End: 04-18-2022 Emergency department patient visit Dr. Aleena London Work Phone: [facility] Start: 04-18-2022 End: 04-18-2022 Dr. Aleena London Work Phone: [facility] Start: 04-16-2022 Non-patient / Non-visit Dr. Taz London Work Phone: [facility] Start: 04-16-2022 Dr. Aleena London Work Phone: [facility] Start: 04-15-2022 End: 04-15-2022 Dr. Aleena London Work Phone: [facility] Start: 04-15-2022 Non-patient / Non-visit Dr. Taz London Work Phone: [facility] Start: 04-15-2022 Dr. Aleena London Work Phone: [facility] Start: 04-14-2022 Non-patient / Non-visit Dr. Taz London Work Phone: [facility] Start: 04-14-2022 Dr. Aleena London Work Phone: [facility] Start: 04-13-2022 Non-patient / Non-visit Dr. Taz London Work Phone: [facility] Start: 04-13-2022 Dr. Aleena London Work Phone: [facility] Start: 04-12-2022 End: 04-16-2022 Evaluation and management of inpatient Dr. Aleena London [facility] Start: 04-12-2022 End: 04-16-2022 Dr. Aleena London [facility] Start: 04-05-2022 End: 04-05-[address] Aleena London Work Phone: [facility] Start: 04-05-2022 End: 04-05-2022 Dr. Aleena London Work Phone: [facility] Start: 03-30-2022 End: 03-30-[address] Aleena London Work Phone: [facility] Work Phone: Start: 03-30-2022 End: 03-30-[address] Aleena London Work Phone: [facility]-Laboratory, Specimen Start: 03-30-2022 End: 03-30-2022 Emergency department patient visit Dr. Aleena London Work Phone: [facility] Start: 03-30-2022 End: 03-30-2022 Dr. Aleena London Work Phone: [facility] Start: 03-30-2022 End: 03-30-[address] Aleena London Work Phone: [facility] Start: 03-30-2022 End: 03-30-2022 Dr. Aleena London Work Phone: [facility] Start: 03-23-2022 Non-patient / Non-visit Dr. Taz London Work Phone: [facility] Start: 03-23-2022 Dr. Aleena London Work Phone: [facility] Start: 03-22-2022 Non-patient / Non-visit Dr. Taz London Work Phone: [facility] Start: 03-22-2022 Dr. Aleena London Work Phone: [facility] Start: 03-22-2022 End: 03-23-2022 Evaluation and management of inpatient [facility]. Aleena London [facility] Phone[facility] Start: 03-22-2022 End: 03-23-2022 Dr. Aleena London [facility] Phone[facility] Start: 03-12-2022 End: 03-12-2022 Emergency department patient visit Dr. Aleena London Work Phone[facility] Start: 03-12-2022 End: 03-12-2022 Dr. Aleena London [facility] Start: 03-04-2022 End: 03-04-2022 Emergency department patient visit Dr. Aleena London [facility] Phone[facility] Start: 03-04-2022 End: 03-04-2022 Dr. Aleena London Work Phone: [facility] Start: 03-02-2022 End: 03-02-[address] Aleena London Work Phone: [facility] Internal Medicine Start: 03-02-2022 End: 03-02-2022 Dr. Aleena London Work Phone: [facility] Internal Medicine Start: 03-02-2022 End: 03-04-2022 Non-patient / Non-visit Dr. Aleena London Work Phone: [facility] Start: 03-02-2022 End: 03-04-2022 Dr. Aleena London Work Phone: [facility] Start: 02-28-2022 End: 02-28-[address] Aleena London Work Phone: [facility] Start: 02-28-2022 End: 02-28-2022 Dr. Aleena London Work Phone: [facility] Start: 02-25-2022 End: 02-25-[address] Aleena London Work Phone: [facility] Start: 02-25-2022 End: 02-25-2022 Dr. Aleena London Work Phone: [facility] Start: 02-23-2022 End: 02-23-[address] Aleena London Work Phone: [facility] Work Phone: Start: 02-23-2022 End: 02-23-[address] Aleena London Work Phone: [facility] Services/Neurology Start: 02-23-2022 End: 02-23-2022 Dr. Aleena London [facility] Start: 02-23-2022 End: 02-23-[address] Aleena London Work Phone: [facility] Gastroenterology Start: 02-23-2022 End: 02-23-2022 Dr. Aleena London Work Phone: [facility] Gastroenterology Start: 02-15-2022 End: 02-15-2022 Emergency department patient visit Dr. Aleena London Work Phone: [facility] Start: 02-15-2022 End: 02-15-2022 Dr. Aleena London Work Phone: [facility] Start: 02-15-2022 End: 02-15-[address] Aleena London Work Phone: [facility] Start: 02-15-2022 End: 02-15-2022 Dr. Aleena London Work Phone: [facility] Start: 02-10-2022 End: 02-10-[address] Aleena London Work Phone: [facility] Start: 02-10-2022 End: 02-10-2022 Dr. Aleena London Work Phone: [facility] Start: 02-08-2022 End: 02-08-[address] Aleena London Work Phone: [facility] Internal Medicine Start: 01-13-2022 End: 01-13-[address] Aleena London Work Phone: [facility] Work Phone: Start: 01-13-2022 End: 01-13-[address] Aleena London Work Phone: [facility]Labor[facility] Start: 01-11-2022 End: 01-11-[address] Aleena London Work Phone: [facility] Work Phone: Start: 01-11-2022 End: 01-11-[address] Aleena London Work Phone: [facility] Start: 01-03-2022 End: 01-03-[address] Aleena London Work Phone: [facility] Start: 12-30-2021 End: 12-30-[address] Aleena London Work Phone: [facility] Gastroenterology Start: 12-23-2021 End: 12-24-2021 Emergency department patient visit Dr. Aleena London [facility] Phone[facility] Start: 12-16-2021 End: 12-16-[address] Aleena London Work Phone: [facility] Women's Care Start: 12-07-2021 End: 12-07-[address] Aleena London Work Phone: [facility] Start: 11-27-2021 End: 11-27-2021 Emergency department patient visit [facility]. Aleena Leiva Phone[facility] Start: 11-18-2021 End: 11-18-[address] Aleena London Work Phone: [facility] Neurology Start: 11-18-2021 End: 11-18-[address] Aleena London Work Phone: [facility] Internal Medicine Start: 11-01-2021 End: 11-01-[address] Aleena London Work Phone: [facility] Internal Medicine Start: 10-29-2021 End: 10-29-[address] Aleena London Work Phone: [facility] Start: 10-26-2021 Non-patient / Non-visit Dr. Taz London Work Phone: [facility] Start: 10-26-2021 End: 10-26-[address] Aleena Leiva Phone: [facility]-Cardiovascular Services Start: 10-15-2021 End: 10-15-[address] Aleena Leiva Phone: [facility] Internal Medicine Start: 10-13-2021 End: 10-13-[address] Aleena Leiva Phone: [facility] Start: 10-11-2021 End: 10-11-[address] Aleena London Work Phone: [facility]-Laboratory, Specimen Start: 10-11-2021 End: 10-11-[address] Aleena Leiva Phone: [facility] Start: 09-29-2021 End: 09-29-[address] Aleena London Work Phone: [facility]-Physical Therapy Start: 09-27-2021 End: 09-27-[address] Aleena Leiva Phone: [facility] Start: 09-23-2021 End: 09-23-[address] Aleena Leiva Phone: [facility]-Ultrasound, [facility] Start: 09-22-2021 End: 09-22-[address] Aleena London Work Phone: [facility] Internal Medicine Start: 09-15-2021 End: 09-15-[address] Aleena Leiva Phone: [facility] Gastroenterology Start: 09-09-2021 End: 09-09-[address] Aleena Leiva Phone: [facility] Start: 09-07-2021 End: 09-07-[address] Aleena London Work Phone: [facility] Start: 08-25-2021 End: 08-25-2021 Emergency department patient visit Dr. Aleena London [facility] Phone[facility] Start: 08-20-2021 End: 08-20-2021 Emergency department patient visit Dr. Aleena London Work Phone[facility] Start: 08-11-2021 End: 08-11-[address] Aleena Leiva Phone: [facility] Internal Medicine Start: 08-11-2021 End: 08-11-[address] Aleena Leiva Phone: [facility] Gastroenterology Start: 08-09-2021 End: 08-09-[address] Aleena London Work Phone: [facility] Start: 07-29-[address] Jorge London Work Phone: [facility]-Physical Therapy Start: 07-26-2021 End: 07-26-[address] Aleena London Work Phone: [facility]-Cardiovascular Services Start: 07-25-[address] Lindy London Work Phone[facility] Start: 07-16-2021 End: 07-16-[address] Aleena London Work Phone: [facility] Start: 07-15-2021 End: 07-15-[address] Aleena London Work Phone: [facility] Start: 07-06-2021 End: 07-06-[address] Aleena London Work Phone: [facility] Start: 06-29-2021 End: 06-29-[address] Aleena London Work Phone: [facility] Gastroenterology Start: 06-28-2021 End: 06-28-[address] Aleena London Work Phone: [facility] Internal Medicine Start: 06-21-2021 End: 06-21-2021 Emergency department patient visit Dr. Aleena London Work Phone: [facility]Emergency [facility] Start: 06-11-2021 End: 06-11-[address] Aleena London Work Phone: [facility] Start: 06-08-2021 End: 06-08-[address] Aleena London [facility] Phone[facility] Start: 06-03-2021 End: 06-03-[address] Aleena London Work Phone: [facility] Internal Medicine Start: 05-24-2021 End: 05-24-[address] Aleena London Work Phone[facility] Start: 05-05-2021 End: 05-05-[address] Aleena London Work Phone[facility] Start: 05-03-2021 End: 05-03-[address] Aleena London Work Phone: [facility] Internal Medicine Start: 12-31-2020 End: 12-31-2020 Subsequent hospital visit by physician [facility] Work Phone: Radiology Comment on above: Acute pain of left s praveen [M25.512] Start: 06-25-2020 End: 06-25-2020 Subsequent hospital visit by physician Armando [facility] Work Phone: Radiology Comment on above: Bronchitis [J40] Start: 11-29-2017 End: 11-29-2017 Emergency department patient visit Debora Quiroz Facility:[facility] Procedures Date Procedure Procedure Detail Performing [...] 04-19-2017 Routine OB Visit (Global) Hanh walter [employer] Work Phone: Start: 04-10-2017 End: 04-10-2017 Routine OB Visit (Global) Cassidy villatoro MD Work Phone: Start: 03-13-2017 End: 03-13-2017 Routine OB Visit (Global) Hanh walter [employer] Work Phone: Start: 03-03-2017 End: 03-03-2017 Routine OB Visit (Global) Hanh walter [employer] Work Phone: Start: 02-17-2017 End: 02-17-2017 Routine [...] Start: 01-09-2017 End: 01-09-2017 *HIV antibody Cassidy Mooer MD Work Phone: Start: 01-09-2017 End: 01-09-2017 [...] London Work Phone: Fracture of femur (disorder) [facility] Fracture of forearm (disorder) [facility] Investigation of tra nsfusion reaction Dr. Aleena [...] Activity Detail Author Start: 07-20-2053 Pneumococcal vaccination [facility] Comment on above: Postponed from 04/29 (Postponed To Appropriate Date) Start: 2047 RSV Immunization age d 60 or older (1 - 1-dose 60+ series) RSV Immunization aged 60 or older (1 - 1-dose 60+ series) [facility] Start: 2037 Zoster Vaccines (1 of 2) Zoste r Vaccines (1 of 2) [facility] Start: 08-11-2030 Tetanus vaccination Tetanus: Every 1 0yrs [facility] Start: 08-11-2030 Urine microalbumin profile DTa P,Tdap,Td Vaccine (2 - Td or Tdap) [facility] Start: 09-20-2024 End: 09-20-2024 Patient encounter procedure 09/20/2024 10:30 AM EDT Office Visit [facility] Physician [facility] [address] [place] [id number] Tomasz Ace Jr., DPM [address] [place] [address] [facility] Start: 01-21-2024 Covid-19 Vaccine ( season) Covid-19 Vaccine ( season) [facility] Start: 01-21-[address] [facility] Start: 12-19-2023 End: 12-19-2023 Patient encounter procedure Radiology Comment on above: RT FOOT BONE SPUR RT FOOT PA INFUL SEVERE Start: 09-29-2023 [facility] Start: 09-28-2023 HPV Testing HPV Testing [facility] Start: 09-28-2023 Pap Testing Pap Testing [facility] Start: 09-28-2023 Screening for malign ant neoplasm of cervix [facility] Start: 09-05-2023 Chlamydia deoxyribon ucleic acid detection [facility] Start: 09-05-2023 Source specific culture [facility] Start: 09-05-2023 [facility] Start: 07-26-2023 [facility] Start: 07-18-2023 [facility] Start: 07-06-2023 Patient referral [facility] Work Phone: Start: 06-29-2023 [facility] Start: 05-16-2023 Ultrasound elastogra phy of liver [facility] Start: 05-04-2023 [facility] Start: 05-03-2023 Cytoplasmic ANCA Screen [facility] Start: 04-19-2023 Patient referral [facility] Work Phone: Start: 04-11-2023 Digital breast tomosynthesis bilateral [facility] Start: 03-16-2023 Patient referral [facility] Work Phone: Start: 02-14-2023 Anes nerve muscle td n fascia&bursa forearm wrist [facility] Start: 02-14-2023 Neuroplasty &/transp os median nrv carpal tunne [facility] Start: 02-14-2023 Application of ice c ollar, cap or bag [facility] Start: 02-14-2023 Catheterization of vein [facility] Start: 02-14-2023 Elevation of affecte d extremity [facility] Start: 02-14-2023 Following clinical p athway protocol [facility] Start: 02-14-2023 Patient discharge [facility] Start: 02-14-2023 Procedure discontinued [facility] Start: 02-14-2023 Taking patient vital signs [facility] Start: 02-14-2023 Vital signs measurements [facility] Start: 02-14-2023 [facility] Start: 02-14-2023 Medication education [facility] Start: 02-13-2023 Patient referral [facility] Work Phone: Start: 02-13-2023 X-ray of cervical spine [facility] Start: 02-13-2023 X-ray of lumbar spin e, two or three views [facility] Start: 02-13-2023 XR Cervical spine 2 or 3 Views [facility] Start: 02-13-2023 XR Lumbar spine 2 or 3 Views [facility] Start: 01-20-2023 Covid-19 Vaccine ( season) Covid-19 Vaccine ( season) [facility] Start: 01-20-2023 Influenza vaccination Influenza Vacc ine (#1) [facility] Start: 09-02-2022 Patient referral [facility] Work Phone: Start: 07-17-2022 Plain chest X-ray [facility] Start: 07-17-2022 XR Chest PA and Lateral [facility] Start: 07-14-2022 Celiac disease screen [facility] Start: 07-14-2022 [facility] Start: 05-30-2022 Patient referral [facility] Work Phone: Start: 04-16-2022 Patient discharge [facility] Start: 04-15-2022 Ambulation therapy management [facility] Start: 04-15-2022 Continuous pulse oximetry [facility] Start: 04-15-2022 Elevation of head of bed [facility] Start: 04-15-2022 Incentive spirometry [facility] Start: 04-15-2022 Measuring intake and output [facility] Start: 04-15-2022 Notification of physician [facility] Start: 04-15-2022 Oxygen therapy [facility] Start: 04-15-2022 Patient education [facility] Start: 04-15-2022 Procedures relating to eating and drinking [facility] Start: 04-15-2022 Taking patient vital signs [facility] Start: 04-15-2022 [facility] Start: 04-15-2022 Introduction of urin cori catheter [facility] Start: 04-14-2022 [facility] Work Phone: Start: 04-13-2022 Application of intermittent pneumatic compression device [facility] Start: 04-13-2022 Consultation [facility] Start: 04-13-2022 Catheterization of vein [facility] Start: 04-12-2022 Following clinical p athway protocol [facility] Start: 04-12-2022 Ambulation without limitation [facility] Start: 04-12-2022 Assessment of risk o f venous thromboembolism [facility] Start: 04-12-2022 Insertion of cathete r into peripheral vein [facility] Start: 04-12-2022 Providing care accor ding to standard [facility] Start: 04-12-2022 [facility] Start: 04-12-2022 Verification routine [facility] Work Phone: Start: 04-12-2022 Admission procedure [facility] Start: 04-12-2022 End: 04-12-2022 Blood culture [facility] Work Phone: Start: 04-12-2022 Patient referral to dietitian [facility] Start: 03-30-2022 Culture bacterial quanttative colony count urine [facility] Start: 03-30-2022 Culture bct isol&prs mptv id isolate ea urine [facility] Start: 03-23-2022 Patient discharge [facility] Start: 03-22-2022 Ambulation therapy management [facility] Start: 03-22-2022 Continuous pulse oximetry [facility] Start: 03-22-2022 Elevation of head of bed [facility] Start: 03-22-2022 Incentive spirometry [facility] Start: 03-22-2022 Measuring intake and output [facility] Start: 03-22-2022 Notification of physician [facility] Start: 03-22-2022 Oxygen therapy [facility] Start: 03-22-2022 Patient education [facility] Start: 03-22-2022 Procedures relating to eating and drinking [facility] Start: 03-22-2022 Taking patient vital signs [facility] Start: 03-22-2022 Wound care [facility] Start: 03-22-2022 [facility] Start: 03-22-2022 Introduction of urin cori catheter [facility] Start: 03-22-2022 Admission procedure [facility] Start: 03-04-2022 [facility] Start: 01-03-2022 Fat [Presence] in Stool [facility] Work Phone: Start: 10-23-2021 Annual PCP Team Marketing Agent sarai Disease Visit Annual PCP Team Chronic Disease Visit [facility] Start: 09-27-2021 Screening for malign ant neoplasm of cervix Cervical Cancer Screening [facility] Start: 09-22-2021 Patient referral [facility] Work Phone: Start: 08-11-2021 Patient referral [facility] Work Phone: Start: 06-03-2021 Patient referral [facility] Work Phone: Start: 05-10-2017 End: 05-10-[address] [facility] Start: 2017 Screening for malign ant neoplasm of cervix [facility] Start: 04-19-2017 End: 04-19-2017 Appointment Appointment [facility] Start: 04-10-2017 End: 04-10-2017 Appointment Appointment [facility] Start: 03-13-2017 End: 03-13-2017 Us preg uterus after 1st trimest 1/ gestation US OB, >14 weeks [facility] Start: 03-13-2017 End: 03-13-2017 Appointment Appointment [facility] Start: 03-10-2017 End: 03-10-2017 Appointment Appointment [facility] Start: 03-03-2017 End: 03-13-2017 Us abdominal real time w/image limited US Kidney [facility] Start: 03-03-2017 End: 03-03-2017 Appointment Appointment [facility] Start: 03-01-2017 End: 03-01-2017 Appointment Appointment [facility] Start: 02-17-2017 End: 02-17-2017 Mri brain brain stem w/o contrast material MRI Brain [facility] Work Phone: Start: 02-17-2017 End: 02-17-2017 Appointment [facility] Start: 02-17-2017 End: 02-17-2017 Mri brain w/o dye MRI Brain [facility] Start: 02-09-2017 End: 02-09-2017 *CBC with Differential *CBC with Differential [facility] Start: 02-09-2017 End: 02-09-2017 *GC/Chlamydia *GC/Chlamydia [facility] Start: 02-09-2017 End: 02-11-2017 *HEBSAG - Hep B Surface Antigen 6510 *HEBSAG - Hep B Surface Antigen 6510 [facility] Start: 02-09-2017 End: 02-11-2017 *HIV antibody *HIV antibody [facility] Start: 02-09-2017 End: 02-09-2017 *TS Type and Screen *TS Type and Screen [facility] Start: 02-09-2017 End: 02-09-2017 Hemoglobin A1c/Hemoglobin.total mass fraction (Bld) *HgA1C [facility] Start: 02-09-2017 End: 02-11-2017 Reagin antibody presence *RPR [facility] Start: 02-09-2017 End: 02-11-2017 Rubella virus Ab [Units/volume] in Serum *Rubella Screen [facility] Start: 02-09-2017 End: 02-09-2017 Urine culture, bacteria *CUUR - Culture, Urine ([place]) [facility] Start: 02-09-2017 End: 03-13-2017 Us preg uterus after 1st trimest 1/ gestation US OB, >[address] [facility] Start: 02-09-2017 End: 02-09-[address] [facility] Start: 02-09-2017 End: 02-09-2017 *CBC with Differential *CBC with Differential [facility] Start: 02-09-2017 End: 02-09-2017 *GC/Chlamydia *GC/Chlamydia [facility] Start: 02-09-2017 End: 02-11-2017 *HEBSAG - Hep B Surface Antigen 6510 *HEBSAG - Hep B Surface Antigen 6510 [facility] Start: 02-09-2017 End: 02-11-2017 *HIV antibody *HIV antibody [facility] Start: 02-09-2017 End: 02-09-2017 *TS Type and Screen *TS Type and Screen [facility] Start: 02-09-2017 End: 02-09-2017 HbA1c *HgA1C [facility] Start: 02-09-2017 End: 02-09-2017 Ob us >/= 14 wks, sngl fetus US OB, >[address] [facility] Start: 02-09-2017 End: 02-11-2017 Reagin antibody presence *RPR [facility] Start: 02-09-2017 End: 02-11-2017 Rubella virus Ab [Units/volume] in Serum *Rubella Screen [facility] Start: 02-09-2017 End: 02-09-2017 Urine culture, bacteria *CUUR - Culture, Urine ([place]) [facility] Start: 02-06-2017 End: 02-09-2017 Thyroid stimulating hormone (TSH) *TSH [facility] Start: 02-06-2017 End: 02-09-2017 Thyroxine (T4) *T4 TT4 (Thyroxine Total) [facility] Start: 02-06-2017 End: 02-09-2017 Thyroid stimulating hormone (TSH) *TSH [facility] Start: 02-06-2017 End: 02-09-2017 Thyroxine (T4) *T4 TT4 (Thyroxine Total) [facility] Start: 01-17-2017 End: 01-17-2017 Bacteria genital culture *CUV - Culture, VAG/CX Comprehensive [facility] Start: 01-17-2017 End: 01-17-[address] [facility] Start: 01-17-2017 End: 01-17-2017 Bacteria genital culture *CUV - Culture, VAG/CX Comprehensive [facility] Start: 01-09-2017 End: 01-09-[address] [facility] Start: 01-09-2017 End: 01-09-2017 *ABS Antibody Screen, Indirect *ABS Antibody Screen, Indirect [facility] Start: 01-09-2017 End: 01-09-2017 *Blood Typing, RH *Blood Typing, RH [facility] Start: 01-09-2017 End: 01-09-2017 *CBC with Differential *CBC with Differential [facility] Start: 01-09-2017 End: 01-09-2017 *GC/Chlamydia *GC/Chlamydia [facility] Start: 01-09-2017 End: 01-09-2017 *HEBSAG - Hep B Surface Antigen 6510 *HEBSAG - Hep B Surface Antigen 6510 [facility] Start: 01-09-2017 End: 01-09-2017 *HIV antibody *HIV antibody [facility] Start: 01-09-2017 End: 01-09-2017 *TS Type and Screen *TS Type and Screen [facility] Start: 01-09-2017 End: 01-09-2017 GTT (glucose after 1hr PO glucose) *Glucose, Post Glucose Dose [facility] Start: 01-09-2017 End: 01-09-2017 Reagin antibody presence *RPR [facility] Start: 01-09-2017 End: 01-09-2017 Rubella virus Ab [Units/volume] in Serum *Rubella Screen [facility] Start: 01-09-2017 End: 01-09-2017 Thyroid stimulating hormone (TSH) *TSH [facility] Start: 01-09-2017 End: 01-09-2017 Thyroxine (T4) *T4 TT4 (Thyroxine Total) [facility] Start: 01-09-2017 End: 01-09-2017 Urine culture, bacteria *CUUR - Culture, Urine ([place]) [facility] Start: 01-09-2017 End: 01-09-2017 *ABS Antibody Screen, Indirect *ABS Antibody Screen, Indirect [facility] Start: 01-09-2017 End: 01-09-2017 *Blood Typing, RH *Blood Typing, RH [facility] Start: 01-09-2017 End: 01-09-2017 *CBC with Differential *CBC with Differential [facility] Start: 01-09-2017 End: 01-09-2017 *GC/Chlamydia *GC/Chlamydia [facility] Start: 01-09-2017 End: 01-09-2017 *HEBSAG - Hep B Surface Antigen 6510 *HEBSAG - Hep B Surface Antigen 6510 [facility] Start: 01-09-2017 End: 01-09-2017 *HIV antibody *HIV antibody [facility] Start: 01-09-2017 End: 01-09-2017 *TS Type and Screen *TS Type and Screen [facility] Start: 01-09-2017 End: 01-09-2017 GTT (glucose after 1hr PO glucose) *Glucose, Post Glucose Dose [facility] Start: 01-09-2017 End: 01-09-2017 Reagin antibody presence *RPR [facility] Start: 01-09-2017 End: 01-09-2017 Rubella virus Ab [Units/volume] in Serum *Rubella Screen [facility] Start: 01-09-2017 End: 01-09-2017 Thyroid stimulating hormone (TSH) *TSH [facility] Start: 01-09-2017 End: 01-09-2017 Thyroxine (T4) *T4 TT4 (Thyroxine Total) [facility] Start: 01-09-2017 End: 01-09-2017 Urine culture, bacteria *CUUR - Culture, Urine ([place]) [facility] Start: 01-02-2017 End: 01-09-2017 Us uterus 14 wk transabdl 05/22 gestat US OB, <14 weeks [facility] Start: 01-02-2017 End: 01-09-2017 Ob us < 14 wks, single fetus US OB, <14 weeks [facility] Start: 2008 Screening for malign ant neoplasm of cervix Pap Smear [facility] Start: 2006 DTaP/Tdap/Td Vaccine s (1 - Tdap) DTaP/Tdap/Td Vaccines (1 - Tdap) [facility] Start: 2006 Hepatitis B Vaccine (1 of 3 - 19+ 3-dose series) Hepatitis B Vaccine (1 of 3 - 19+ 3-dose series) [facility] Start: 2006 Pneumococcal Vaccine : Ped or At-Risk (1 of 2 - PCV) Pneumococcal Vaccine: Ped or At-Risk (1 of 2 - PCV) [facility] Start: 2005 Anxiety Screening Anxiety Screening [facility] Start: 2005 Depression Screening Depression Scre ening [facility] Start: 2005 Hepatitis C screening Hepatitis C Sc reening [facility] Start: 2002 HIV screening HIV Screening [facility] Start: 1999 Depression Screening [facility] Start: 1990 History and physical examination, annual for health maintenance Wellness Visit [facility] Start: 1988 MMR Vaccines (1 of 1 - Standard series) MMR Vaccines (1 of 1 - Standard series) [facility] Start: 1988 Varicella vaccination Varicell a Vaccines (1 of 2 - 2-dose childhood series) [facility] Start: 1987 Covid-19 Vaccine (#1) Covid-19 Vacci ne (#1) [facility] Start: 1987 Hepatitis B Vaccine (1 of 3 - 3-dose series) Hepatitis B Vaccine (1 of 3 - 3-dose series) [facility] Start: 1987 Hepatitis B Vaccines (1 of 3 - 3-dose series) Hepatitis B Vaccines (1 of 3 - 3-dose series) [facility] Start: 1987 HIV screening HIV Screening [facility] Anaerobic Culture Anaerobic Culture [facility] Work Phone: Anaerobic microbial culture Anaerobic Culture [facility] Work Phone: Antibody to lupus La protein measurement [facility] Antibody to SS-A measurement [facility] Bacteria identified in Blood by Culture Blood Culture [facility] Work Phone: Bacteria identified in Unspecified specimen by Anaerobe culture [facility] Work Phone: Blood culture [facility] Work Phone: Centromere protein B Ab [Units/volume] in Serum [facility] Chromatin Ab [Units/volume] in Serum or Plasma [facility] DNA double strand Ab [Units/volume] in Serum [facility] Fat [Mass/mass] in Stool [facility] Work Phone: Fat.neutral [Presenc e] in Stool [facility] Work Phone: Alise-1 extractable nuc lear Ab [Units/volume] in Serum [facility] Lipid 1996 panel - S luisa or Plasma [facility] Measurement of immunoglobulin A in serum specimen [facility] Microbial culture, routine Wound Culture [facility] Work Phone: MR Biliary ducts and Pancreatic duct [facility] Work Phone: Neisseria gonorrhoea e rRNA [Presence] in Unspecified specimen by JONE with probe detection [facility] Neutrophil cytoplasm ic Ab.classic [Units/volume] in Serum [facility] P-ANCA measurement [facility] Patient Education [facility] Work Phone: Patient referral [facility] Work Phone: PCR test for Chlamyd ia trachomatis [facility] Radionuclide gastric emptying study [facility] Work Phone: Radionuclide gastric emptying study [facility] Radionuclide imaging of liver and/or biliary tract using radioactive isotope [facility] Work Phone: SCL-70 extractable n uclear Ab [Units/volume] in Serum by Immunoassay [facility] [place] extractable nu clear Ab [Presence] in Serum [facility] Tissue transglutamin ase IgA Ab [Units/volume] in Serum [facility] Tissue transglutamin ase IgG Ab [Units/volume] in Serum [facility] Ultrasound elastography [facility] Work Phone: Ultrasound elastography [facility] Urine test [facility] Work Phone: US Abdomen limited [facility] US Pelvis [facility] US Pelvis [facility] US Pelvis transvaginal [facility] US Pelvis transvaginal [facility] End: 12-19-2024 XR Foot - right AP and Lateral and oblique XR FOOT GENERAL 3V AP/LAT/OBL RIGHT Radiology Routine Pain 1 Occurrences starting 11/20/2023 until 12/19/2024 [facility] Work Phone: Comment on above: 1 Occurrences starti ng 11/20/2023 until 12/19/2024 [facility] Immunizations Immunization Date Immunization Notes Care Provider Fa [facility] 08-11-2020 tetanus toxoid, redu wendy diphtheria toxoid, and acellular pertussis vaccine, adsorbed Dr. Aleena London Work Phone: [facility] 04-16-2019 influenza virus vaccine, unspecified formulation Nima Kaur MD Work Phone: [facility] 08-29-2012 RHO(D) immune globul in- IV or IM Nima Kaur MD Work Phone: [facility] Work Phone: 06-22-2012 RHO(D) immune globul in- IV or IM Nima Kaur MD Work Phone: [facility] 06-02-2012 RHO(D) immune globul in- IV or IM Nima Kaur MD Work Phone: [facility] Payers Date Payer Category Payer Unknown [id number] 10-13-2023 Self-pay [id number] 08-20-2021 Medicaid (Managed Care) [facility] MEDICA[facility] [id number] 08-20-2021 Unknown [id number] 07-20-2020 Medicaid [id number] 09-20-2019 Private Health Insurance [facility] [id number] 09/20/2019-05/21/2020 [address] [address] [place] [address] HMO [id number] 11-29-2017 Unknown 08-20-2016 Unknown [id number] 1987 Unknown [id number] 2.16.840.1.455983.3.579.2. 1069 1987 Unknown [id number] 2.16.840.1.513290.3.579.2. 903 1987 Unknown [id number] 2.16.840.1.522021.3.579.2. 627 1987 Unknown [id number] 2.16.840.1.910996.3.579.2. 627 1987 Unknown [id number] 2.16.840.1.895453.3.579.2. 903 1987 Unknown [id number] 2.16.840.1.811688.3.579.2. 903 1987 Unknown [id number] 2.16.840.1.281298.3.579.2. 903 1987 Unknown [id number] 2.16.840.1.801092.3.579.2. 902 1987 Unknown [id number] 2.16.840.1.295553.3.579.2. 902 1987 Unknown [id number] 2.16.840.1.995213.3.579.2. 902 1987 Unknown [id number] 2.16.840.1.550336.3.579.2. 902 1987 Unknown [id number] 2.16.840.1.682872.3.579.2. 902 1987 Unknown [id number] 2.16.840.1.797527.3.579.2. 902 1987 Unknown [id number] 2.16.840.1.432640.3.579.2. 902 1987 Unknown [id number] 2.16.840.1.901563.3.579.2. 902 1987 Unknown [id number] 2.16.840.1.852627.3.579.2. 902 1987 Unknown [id number] 2.16.840.1.401641.3.579.2. 902 1987 Unknown [id number] 2.16.840.1.718284.3.579.2. 902 1987 Unknown [id number] 2.16.840.1.730092.3.579.2. 902 1987 Unknown [id number] 2.16.840.1.413478.3.579.2. 902 1987 Unknown [id number] 2.16.840.1.456116.3.579.2. 902 1987 Unknown [id number] 2.16.840.1.603419.3.579.2. 902 1987 Unknown [id number] 2.16.840.1.413788.3.579.2. 902 1987 Unknown [id number] 2.16.840.1.412353.3.579.2. 902 1987 Unknown [id number] 2.16.840.1.209235.3.579.2. 902 1987 Unknown [id number] 2.16.840.1.691329.3.579.2. 902 1987 Unknown [id number] 2.16.840.1.433159.3.579.2. 902 1987 Unknown [id number] 2.16.840.1.134786.3.579.2. 902 1987 Unknown [id number] 2.16.840.1.208708.3.579.2. 902 1987 Unknown [id number] 2.16.840.1.494010.3.579.2. 902 Unknown [id number] Unknown [id number] Unknown [id number] Unknown [id number] 2.16.840.1.317659.3.579.2. 462 Unknown [id number] 2.16.840.1.061281.3.579.2. 462 Unknown [id number] 2.16.840.1.248809.3.579.2. 462 Unknown [id number] 2.16.840.1.899275.3.579.2. 462 Unknown [id number] 2.16.840.1.286313.3.579.2. 462 Unknown [id number] 2.16.840.1.461808.3.579.2. 462 Unknown [id number] 2.16.840.1.509754.3.579.2. 462 Unknown [id number] 2.16.840.1.532986.3.579.2. 462 Unknown [id number] 2.16.840.1.862803.3.579.2. 462 Unknown [id number] 2.16.840.1.603602.3.579.2. 462 Unknown [id number] 2.16840.1.448939.3.579.2. 462 Unknown [id number] 2.16840.1.401575.3.579.2. 462 Unknown [id number] 2.16840.1.904371.3.579.2. 462 Unknown [id number] 2.16840.1.312575.3.579.2. 462 Unknown [id number] 2.840.1.167116.3.579.2. 462 Unknown [id number] 2.16.840.1.078422.3.579.2. 462 Unknown [id number] 2.16.840.1.626900.3.579.2. 462 Unknown [id number] 2.16840.1.167409.3.579.2. 462 Unknown [id number] 2.16.840.1.026556.3.579.2. 462 Unknown [id number] 2.16.840.1.505200.3.579.2. 462 Unknown [id number] 2.16.840.1.550905.3.579.2. 462 Unknown [id number] 2.16.840.1.965336.3.579.2. 462 Unknown [id number] 2.16840.1.805851.3.579.2. 462 Unknown [id number] 2.16.840.1.364605.3.579.2. 462 Unknown [id number] 2.16.840.1.359918.3.579.2. 462 Unknown [id number] 2.16.840.1.816119.3.579.2. 462 Unknown [id number] 2.16.840.1.584986.3.579.2. 462 Unknown [id number] 2.16.840.1.211027.3.579.2. 462 Unknown [id number] 2.16.840.1.041440.3.579.2. 462 Unknown [id number] 2.16.840.1.376609.3.579.2. 462 Unknown [id number] 2.16840.1.266267.3.579.2. 462 Unknown [id number] 2.16.840.1.316432.3.579.2. 462 Unknown [id number] 2.16840.1.287064.3.579.2. 462 Unknown [id number] 2.16.840.1.944285.3.579.2. 462 Unknown [id number] 2.16.840.1.626736.3.579.2. 462 Unknown [id number] 2.16840.1.724178.3.579.2. 462 Unknown [id number] 2.16.840.1.102048.3.579.2. 462 Unknown [id number] 2.16.840.1.117680.3.579.2. 462 Unknown [id number] 2.16.840.1.262714.3.579.2. 462 Unknown [id number] 2.16.840.1.041539.3.579.2. 462 Unknown [id number] 2.16.840.1.881115.3.579.2. 462 Unknown [id number] 2.16.840.1.385780.3.579.2. 462 Unknown [id number] 2.16.840.1.457955.3.579.2. 462 Unknown [id number] 2.16.840.1.717569.3.579.2. 462 Unknown [id number] 2.16.840.1.553238.3.579.2. 462 Unknown [id number] 2.16.840.1.383462.3.579.2. 462 Unknown [id number] 2.16.840.1.863849.3.579.2. 462 Unknown [id number] 2.16.840.1.688109.3.579.2. 462 Unknown [id number] 2.16.840.1.279363.3.579.2. 462 Unknown [id number] 2.16.840.1.886113.3.579.2. 462 Unknown [id number] 2.16.840.1.251311.3.579.2. 462 Unknown [id number] 2.16.840.1.827004.3.579.2. 462 Unknown [id number] 2.16.840.1.497596.3.579.2. 462 Unknown [id number] 2.16.840.1.422496.3.579.2. 462 Unknown [id number] 2.16.840.1.003070.3.579.2. 462 Unknown [id number] 2.16.840.1.905451.3.579.2. 462 Unknown [id number] 2.16.840.1.576794.3.579.2. 462 Unknown [id number] 2.16.840.1.460434.3.579.2. 462 Unknown [id number] 2.16.840.1.234896.3.579.2. 462 Unknown [id number] 2.16.840.1.228665.3.579.2. 462 Unknown [id number] 2.840.1.744639.3.579.2. 462 Unknown [id number] 2.840.1.611733.3.579.2. 462 Unknown [id number] 2.840.1.012776.3.579.2. 462 Unknown [id number] 2.840.1.359163.3.579.2. 462 Unknown [id number] 2.840.1.383967.3.579.2. 462 Unknown [id number] 2.840.1.162262.3.579.2. 462 Unknown [id number] 2.840.1.549382.3.579.2. 462 Unknown [id number] 2.840.1.371930.3.579.2. 462 Unknown [id number] 2.840.1.535119.3.579.2. 462 Unknown [id number] 2.840.1.240408.3.579.2. 462 Unknown [id number] .840.1.148223.3.579.2. 462 Unknown [id number] 2.840.1.188200.3.579.2. 462 Unknown [id number] .840.1.988618.3.579.2. 462 Unknown [id number] 2.840.1.239826.3.579.2. 462 Unknown [id number] .840.1.845425.3.579.2. 462 Unknown [id number] 2.840.1.137175.3.579.2. 462 Unknown [id number] 2.840.1.000964.3.579.2. 462 Unknown [id number] 2.840.1.122393.3.579.2. 462 Unknown [id number] 2.16.840.1.077192.3.579.2. 462 Unknown [id number] 2.16.840.1.540982.3.579.2. 462 Unknown [id number] 2.16.840.1.304284.3.579.2. 462 Unknown [id number] 2.16.840.1.567363.3.579.2. 462 Unknown [id number] 2.16840.1.587722.3.579.2. 462 Unknown [id number] 2.840.1.374463.3.579.2. 462 Unknown [id number] 2.840.1.963847.3.579.2. 462 Unknown [id number] 2.840.1.003351.3.579.2. 462 Unknown [id number] 2.840.1.315022.3.579.2. 462 Unknown [id number] 2.840.1.619644.3.579.2. 462 Unknown [id number] 2.840.1.696102.3.579.2. 462 Unknown [id number] 2.840.1.126610.3.579.2. 462 Unknown [id number] 2.840.1.856669.3.579.2. 462 Unknown [id number] 2.840.1.016266.3.579.2. 462 Unknown [id number] 2.840.1.768932.3.579.2. 462 Unknown [id number] 2.840.1.951744.3.579.2. 462 Unknown [id number] 2.16840.1.436426.3.579.2. 462 Unknown [id number] 2.840.1.966777.3.579.2. 462 Unknown [id number] 2.840.1.051349.3.579.2. 462 Unknown [id number] 2.16.840.1.388629.3.579.2. 462 Unknown [id number] 2.16.840.1.424838.3.579.2. 462 Unknown [id number] 2.16.840.1.634315.3.579.2. 462 Unknown [id number] 2.16.840.1.455967.3.579.2. 462 Unknown [id number] 2.16.840.1.567163.3.579.2. 462 Unknown [id number] 2.16.840.1.743208.3.579.2. 462 Unknown [id number] 2.16.840.1.405445.3.579.2. 462 Unknown [id number] 2.16.840.1.094776.3.579.2. 462 Unknown [id number] 2.16.840.1.289420.3.579.2. 462 Social History Date Type Detail Facility [facility] Work Phone: Start: 08-20-2021 End: 05-04-2023 Tobacco smoking status NHIS Unknown if ever smoked [facility] Start: 07-01-2020 None [facility] Start: 09-08-2020 With Family [facility] Start: 05-25-2020 Cigarettes [facility] Start: 1985 Sex Assigned At Female [facility] Start: 11-16-2022 End: 02-11-2024 Tobacco smoking status Smokes tobacco daily (finding) [facility] Sex Assigned At Sex [facility] Start: 09-02-2004 History of tobacco use Cigarette Smo ker [facility] Start: 11-16-2022 End: 06-21-2024 Cigarettes smoked current (pack per day) - Reported 1 [facility] Start: 11-16-2022 End: 02-11-2024 Tobacco use and exposure Smokeless tobacco non-user [facility] Start: 06-25-2020 End: 11-16-2022 Alcohol intake Current non-drinker of alcohol (finding) [facility] Start: 01-27-2020 End: 06-21-2024 Social connection and isolation panel [facility] Do you belong to any clubs or organizations such as worship groups, unions, fraternal or athletic groups, or school groups? No [facility] Are you now , , , , never or living with a partner? [facility] How often to you hav e a drink containing alcohol? Monthly or less [facility] Work Phone: How many standard drinks containing alcohol do you have on a typical day? 3 or 4 [facility] Work Phone: How often do you hav e 6 or more drinks on 1 occasion? Less than monthly [facility] Work Phone: How hard is it for y ou to pay for the very basics like food, housing, medical care, and heating Hard [facility] Work Phone: Adult Depression Screening Assessment 1 [facility] Do you feel stress - tense, restless, nervous, or anxious, or unable to sleep at night because your mind is troubled all the time - these days [OSQ] Only a little [facility] (I/We) worried wheth er (my/our) food would run out before (I/we) got money to buy more. Never true [facility] Work Phone: Start: 01-27-2020 Education 12 [facility] Start: 12-09-2016 End: 11-16-2022 Tobacco Comment Childhood home parents smoked outside. [facility] Start: 1985 Sex Assigned At Not on file [facility] Start: 05-26-2020 End: 12-31-2020 Exposure to SARS-CoV-2 (event) Not sure [facility] Start: 06-21-2024 Alcoholic beverage intake Current drinker of alcohol (finding) [facility] Start: 03-02-2021 Alcohol Comment occasionally [facility] Start: 02-24-2022 Gender identity Identifies as female gender (finding) [facility] Start: 02-24-2022 Sexual orientation Heterosexual (fin ding) [facility] NEGATED: Highlighted row [facility] Medical Equipment Procedure Code Equipment Code Equipment Origin al Text Equipment Identifier Dates Vaginal hysterectomy SEALANT,JASWINDER SEAL HEMOSTATIC 5ML FDA Start: 03-22-2022 Vaginal hysterectomy ( [id number] FDA Start: 03-22-2022 Vaginal hysterectomy SEALANT,JASWINDER SEAL [...] 02-07-2020 Thyroidectomy FDA Start: 02-07-2020 Laparoscopy, diagnostic ([id number]) [id number] Start: 04-15-2022 Acetone (Urine) Test (Ketone Urine [...] 08-15-2022 Functional Status Room check performed [facility] 08-15-2022 Functional Status [facility] 04-16-2022 Functional status Ambulates [facility] Work Phone: 03-23-2022 Functional status Up ad dylan [facility] Work Phone: Mental Status Date Assessment Result Facility 09-29-2023 Cognitive function Awake;Alert;A ppropriate;Follow s Commands [facility] Work Phone: 06-29-2023 Cognitive function Awake;Alert;A ppropriate;Follow s Commands [facility] Work Phone: 04-17-2023 Cognitive function Awake [facility] Work Phone: 02-14-2023 Cognitive function Voice/Name [facility] Work Phone: 12-25-2022 Cognitive function Voice/Name [facility] Work Phone: 08-17-2022 Cognitive function Awake;Alert;Appropriat [facility] Work Phone: 08-15-2022 Mental Status Orientation Oriented x 4 [facility] 08-15-2022 Mental Status [facility] 07-17-2022 Cognitive function Voice/Name [facility] Work Phone: 04-18-2022 Cognitive function Awake;Alert;A ppropriate;Follow s Commands [facility] Work Phone: 04-16-2022 Cognitive function Voice/Name [facility] Work Phone: 03-30-2022 Cognitive function Awake;Alert;A ppropriate;Follow s Commands [facility] Work Phone: 03-23-2022 Cognitive function Voice/Name [facility] Work Phone: 03-23-2022 Cognitive function [facility]ropriate;[facility]: 11-27-2021 Cognitive function Appropriate;[facility] Work Phone: 08-25-2021 Cognitive function Level Of Cons ciousness Awake;Alert;Appropriate;Follow s Commands [facility] Work Phone: Clinical Notes 2018 to 06-21-2024 [...] Resource Strain: High Risk (02/19/2020) Received from [facility] Overall Financial Resource Strain (CARDIA) Difficulty of Paying Living Expenses: Hard Food Insecurity: No Food Insecurity (02/19/2020) Received from [facility] Hunger Vital Sign Worried About Running Out of Food in the Last Year: Never true Ran Out of Food in the Last Year: Never true Transportation Needs: No Transportation Needs (02/19/2020) Received from [facility] PRAPARE - Transportation Lack of Transportation (Medical): No Lack of Transportation (Non-Medical): No Physical Activity: Insufficiently Active (01/27/2020) Received from [facility] Exercise Vital Sign Days of Exercise per Week: 2 days Minutes of Exercise per Session: 20 min Stress: No Stress Concern Present (01/27/2020) Received from [facility] - Occupational Stress Questionnaire Feeling of Stress : Only a little Social Connections: Moderately Isolated (01/27/2020) Received from [facility] Social Connection and Isolation Panel [NHANES] Frequency of Communication with Friends and Family: More than three times a week Frequency of Social Gatherings with Friends and Family: Twice a week Attends Adventism Services: Never Active Member of Clubs or Organizations: No Attends Club or Organization Meetings: Never Marital Status: Housing Stability: Low Risk (01/27/2020) Received from [facility] Housing Stability Vital Sign Unable to Pay [...] BY TOMASZ ACE JR., ON 06/21/2024 14:55:06 [facility] 06-21-2024 History of Presen t illness [...] Resource Strain: High Risk (02/19/2020) Received from [facility] Overall Financial Resource Strain (CARDIA) Difficulty of Paying Living Expenses: Hard Food Insecurity: No Food Insecurity (02/19/2020) Received from [facility] Hunger Vital Sign Worried About Running Out of Food in the Last Year: Never true Ran Out of Food in the Last Year: Never true Transportation Needs: No Transportation Needs (02/19/2020) Received from [facility] PRAPARE - Transportation Lack of Transportation (Medical): No Lack of Transportation (Non-Medical): No Physical Activity: Insufficiently Active (01/27/2020) Received from [facility] Exercise Vital Sign Days of Exercise per Week: 2 days Minutes of Exercise per Session: 20 min Stress: No Stress Concern Present (01/27/2020) Received from [facility] - Occupational Stress Questionnaire Feeling of Stress : Only a little Social Connections: Moderately Isolated (01/27/2020) Received from [facility] Social Connection and Isolation Panel [NHANES] Frequency of Communication with Friends and Family: More than three times a week Frequency of Social Gatherings with Friends and Family: Twice a week Attends Adventism Services: Never Active Member of Clubs or Organizations: No Attends Club or Organization Meetings: Never Marital Status: Housing Stability: Low Risk (01/27/2020) Received from [facility] Housing Stability Vital Sign Unable to Pay [...] cam boot immobilization. documented in this encounter [facility] 09-30-2023 Hospital Discharg e instructions Additional Instructions 1. Apply ice 6-8 times a day 2. Avoid neck movement it causes you pain. 3. If you develop weakness in your hands or difficulty using your upper extremity return to the emergency room otherwise follow-up with your doctor Dr. London [facility] Work Phone: 09-29-2023 Discharge summary Note Date/Time September 29, 2023 3:52p [facility] Medical Records Department [address] [place] [address] Emergency Department Summary 09/29/23 MR#: [id number] Acct: [id number] Name: LANA RIVERA Rep #:[id number] : 1985 38 From: Sorin Jacobs MD [...] Prior similar symptoms: Yes Recent Illness/Hospitalization: Yes [facility] Medical History ADHD (attention deficit hyperactivity disorder), [...] % (Auto) 59.6 Lymph % (Auto) 26.8 Morris % (Auto) 9.4 Eos % (Auto) 3.4 [...] your Primary Care Provider. Call [facility] ([phone]) or report to the closest Emergency Room. Call 911 if necessary. 09/29/23 1611 <Electronically signed by Sorin Jacobs MD> Cosigner Signature (if applicable): CC: Dr. Aleena London MD ~ Signed [facility] Work Phone: 1(708) 407-826805-10-2024 Hospital Discharge instructions Additional Instructions 1. Apply ice 6-8 times a day 2. Avoid neck movement it causes you pain. 3. If you develop weakness in your hands or difficulty using your upper extremity return to the emergency room otherwise follow-up with your doctor [facility]. [facility] Work Phone: [phone]) 940-851603-27-2024 NoteHNO ID: [id number] Author: JAYLA MEDINA APRN.ANALYTICS DIRECTOR Service: ? Author Type: Nurse Practitioner Type: [...] years as her is s/p vasectomy. Her Repair Service Clerk is Dr. Garcia and Dr. Moore IMAGING: [...] negative Last mammogram: 2020, normal Last colonoscopy: N/[facility]03-27-2024 History of Present illness Narrative* Jayla Medina, MIKE.ANALYTICS DIRECTOR - 08/16/2023 2:30 PM EDT PATIENT DID [...] years as her is s/p vasectomy. Her Repair Service Clerk is Dr. Garcia and Dr. Moore IMAGING: [...] normal Last colonoscopy: N/A [facility] Discharge summary Author Ashutosh Barajas [facility] July 18, 2023 11:41pm Note Date/Time July 18, 2023 11:36pm [facility] Medical Records Department [address] [place] [address] Emergency Department Summary 07/18/23 MR#: [id number] Acct: [id number] Name: LANA RIVERA Rep #:[id number] : 1985 38 From: Ashutosh Barajas MD [...] pain or shortness of breath or syncope. [facility] Medical History Abdominal pain ADHD (attention deficit [...] your Primary Care Provider. Call [facility] ([phone]) or report to the closest Emergency Room. Call 911 if necessary. 07/18/23 8223 <Electronically signed by Ashutosh Barajas MD> Cosigner [...] cc: Dr. Aleena London MD ~* Signed [facility] Work Phone: 1(674) 265-477511-22-2023 NoteSpoke with Sandra at [facility]. Explained that we do not except [employer]. State that she will call Pt to let her know. [facility] encounter Note* Telephone Encounter - Dimple Lewis - 04/12/2023 12:05 PM EST Spoke with Sandra at [facility]. Explained that we do not except [employer]. State that she will call Pt to let her know. Ok to close [id number] Miscellaneous Notes* Telephone Encounter - Dimple Lewis - 04/12/2023 12:05 PM EST Spoke with Sandra at [facility]. Explained that we do not except [employer]. State that she will call Pt to let her know. Ok to close referral documented in this encounterSLima Memorial [id number] Procedure [facility]09-14-2023 Miscellaneous Notes* Telephone Encounter - Riya Aguilar [...] calling: self Call patient at: on cell [phone] (home) [phone] (cell) Was an appointment scheduled: No Closing statement: Results or non-symptom based questions: Thank you for calling [facility], your call will be returned within the next business day. Radha Stark documented in this [facility]-2023 Discharge summary Author Stephany Robbins [facility] December 25, 2022 2:24pm Note Date/Time December 25, 2022 12: 56pm [facility] Medical Records Department [address] [place] [address] Emergency Department Summary 12/25/22 MR#: [id number] Acct: [id number] Name: LANA RIVERA Giselle Rep #:[id number] : 1985 37 From: Ry Enamorado MD [...] a chronic smoker's cough which is unchanged. [facility] <ADRI Burgess - Last Filed: 12/25/22 14:24> [facility] Medical History Abdominal pain ADHD (attention deficit hyperactivity disorder), combined type Anxiety and depression Arthritis Back pain Bronchitis Cancer Cardiology follow-up encounter Cervical lymphadenopathy Cervical radiculopathy Chronic back pain Chronic pain Chronic RUQ pain Depression Easy bruising Ectopic cardiac beats Fatty liver Fibromyalgia NICLOÁS (generalized anxiety disorder) Almaz's thyroiditis Heartburn History [...] of the patient and have reviewed the DEIRDE Note. I performed a substantive portion of [...] % (Auto) 58.5 Lymph % (Auto) 26.7 Morris % (Auto) 7.8 Eos % (Auto) 5.7 [...] Enamorado MD - Last Filed: 12/25/22 13:56> [facility] MDM Narrative Medical decision making narrative: I [...] % (Auto) 58.5 Lymph % (Auto) 26.7 Morris % (Auto) 7.8 Eos % (Auto) 5.7 [...] pain Instructions: Medicine for Pain, Chest Pain [facility] Prescriptions: New methocarbamol 500 mg tablet 500 [...] problems, contact your Primary Care Provider. Call [employer] [facility] ([phone]) or report to the closest Emergency Room. Call 911 if necessary. 12/25/22 0555 <Electronically signed by Ry Enamorado MD> Cosigner Signature (if applicable): 12/25/22 1424 <Electronically signed by Stephany RUSH> CC: Dr. Alenea London MD ~ Signed [facility] Work Phone: 1(372) 129-370407-01-2023 Discharge summary Author Jesi Padilla [facility] November 20, 2022 12:04am Note Date/Time November 19, 2022 9:23p m [facility] Medical Records Department [address] [place] [address] Emergency Department Summary 11/19/22 MR#: [id number] Acct: [id number] Name: LANA RIVERA Rep #:[id number] : 1985 37 From: Jesi Padilla MD [...] some of her pain possibly from scarring. [facility] Medical History Abdominal pain ADHD (attention deficit [...] liver that are stable. She hasseen her PUBLIC TRANSPORTATION INSPECTOR and then a specialist in [place] but they do not want to remove [...] % (Auto) 55.7 Lymph % (Auto) 30.7 Morris % (Auto) 8.1 Eos % (Auto) 4.7 [...] Instructions: Follow-up with Dr. Tracy and your medical legal investigator. Disposition Disposition: Home, Self Care What to do if you have Problems For any increased pain, shortness of breath, bleeding, nausea or vomiting, chestpain, or any unexpected problems, contact your Primary Care Provider. Call [facility] ([phone]) or report to the closest Emergency Room. Call 911 if necessary. 11/20/22 0004 <Electronically signed by Jesi Padilla MD> Cosigner Signature (if applicable): CC: Dr. Aleena London MD ~ Signed [facility] Work Phone: 1(547) 669-353306-28-2023 NoteHNO ID: [id number] Author: LUKASZ EUBANKS MD Service: ? Author [...] years as her is s/p vasectomy. Her Repair Service Clerk is Dr. Garcia and Dr. Moore The [...] bleeding, vaginal discharge and vaginal pain. PAST MEDICAL/SURGICAL/OB-DISPLAY MANAGER/FAMILY/SOCIAL HISTORY: PAST MEDICAL HISTORY Diagnosis Date ADHD [...] 12/27/2018 Specifically denies any history of diabetes, WI, or VTE. 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 HRT use: No. History of abnormal pap: Yes, 2 (more content not included)...[facility]06-28-2023 History of Present illness Narrative* Lukasz [...] years as her is s/p vasectomy. Her Repair Service Clerk is Dr. Garcia and Dr. Moore The history is provided by the patient. ROS: Review of Systems Constitutional: Negative for activity change, appetite change, fatigue, fever and unexpected weightchange. Cardiovascular: Negative for chest pain and palpitations. Gastrointestinal: Positive for abdominal pain. Negative for constipation, diarrhea, nausea and vomiting. Genitourinary: Positive for pelvic pain. Negative for vaginal bleeding, vaginal discharge and vaginal pain. PAST MEDICAL/SURGICAL/OB-DISPLAY MANAGER/FAMILY/SOCIAL HISTORY: PAST MEDICAL HISTORY Diagnosis Date ADHD [...] 12/27/2018 Specifically denies any history of diabetes, WI, or VTE. 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 Lukasz Eubanks MD, MS Gynecologic Oncologist documented in this [facility] Hospital Discharge instructions Patient Education 08/15/2022 16:51:47 ED Pain Management (04/2018)(CUSTOM) WELCOME Pain Management in our Emergency/Acute Care Facility Our staff understands that pain relief is important when someone is hurt or needs emergency care. However, providing ongoing pain relief is often complex. We recommend this be done through your primary health care provider such as your family doctor or baker paint. Because mistakes or misuses of pain medication [...] show a valid photo ID (like a construction driver's license) when you check into the [...] or other controlled substance, we check the [place] Automated Rx Reporting system (OARRS) or a [...] Monday: or call the Crisis Intervention Center [facility] at [phone]. It is against the law to attempt to obtain controlled substance pain medicines by deceiving the health care provider caring for you. This can include getting multiple prescriptions from more than oneprovider or using someone else s name to obtain a prescription. Follow Up Care 08/15/2022 15:50:06 With:ALEENA LONDON MD Address: Critical access [facility] [place] [address] [phone] When:2-4 days [facility] 03-27-2023 Note Discharge Instructions Thank you for allowing [facility] to assist you with your healthcare needs. The following is importantdischarge information regarding your hospital visit. Diagnosis from Today's Visit Lower leg pain-swelling What to Do Next Instructions from Your Care Team No qualifying data available. Post Acute Orders No qualifying data available. You Need to Schedule the Following Appointments Follow Up with ALEENA LONDON MD When Within 2-4 days Where: Critical access [facility] [place] [address]- [phone] Allergies Latex (Rash) penicillin (Rash) Medications Please [...] provider such as your family doctor or baker paint. Because mistakes or misuses of pain medication [...] show a valid photo ID (like a construction driver's license) when you check into the [...] or other controlled substance, we check the [place] Automated Rx Reporting system (OARRS) or a [...] or call the Crisis Intervention Center [facility] at [phone]. It is against the law to attempt [...] to receive it can visit one of [facility] vaccine clinics. There are many vaccine clinic locations within the [facility]. For locations and available times, please visit www.[email or web address].[place].gov/. It is important to note that some COVID mobile vaccine clinics are held outdoors and may be canceled in rainy or stormy conditions. To learn more about pediatric vaccinations (ages 5-11), we invite you to visit the [facility] webpage. [email or web address]/[email or web address] [email or web address] learn more about the COVID-19 vaccine, we invite you to visit the CDC website for a list of frequently asked questions. https://www.cdc.gov/coronavirus/2019-ncov/vaccines/faq.html [email or web address] Patient Portal Access Instructions: Stay connected with your healthcare team and access your personal medical information anytime with the [email or web address] Patient Portal. If you would like a full copy of your medical records please contact the [facility] Medical Records Department Monday through Monday between 8a.m. and 4:30p.m. Please follow the directions below to access the portal: 1.Access the email account you provided upon registration to the [facility].2.Look for an invitation email from [facility].3.Open the email and access the invitation link: Accept [facility]itation to [facility]4.Fill in the required still to create your account. Sign into [email or web address] with your username and password that you [...] you will allow to register on the [email or web address] Patient Portal for access to your information. You can also access the [email or web address] Patient Portal on the Sandata deidre. Simply click on Health Records under [employer] and then click on the [employer] logo. HOW TO SAFELY DISPOSE OF PRESCRIPTION [...] Call your local pharmacy or go to [email or web address] to find one close to you.3.Make use of household items: Use cat litter or old coffee grounds to dispose medications if other options arenot available. Mix your drugs with these household products, seal them in an airtight container andthrow it into the garbage. Call [facility]: [phone] to be sure your drugs can be [...] aware that I should contact my doctor. Patient/Hog Dropper Signature: Date/Time: Relationship to Patient: Witness Name/Signature: Date/Time: [facility]08-12-2021 History of Present illness Narrative * Myrna [...] 31, 2020 1:01 PM [facility] of Present illness Narrative* Zully [...] 25, 2020 3:44 PM [facility] of Past illness Narrative* Problem [...] of this encounter (statuses as of 02/03/2023) [facility] History of Past illness Narrative* Problem [...] of this encounter (statuses as of 07/08/2023) [facility] of Past illness Narrative* Problem [...] of this encounter (statuses as of 08/30/2023) [facility] June 10, 2022 11:20am Note Date/Time June 10, 2022 9 :38am [facility] Medical Records Department [address] [place] [address] Emergency Department Summary 06/10/22 MR#: [id number] Acct: [id number] Name: LANA RIVERA Rep #:[id number] : 1985 37 From: Sorin Jacobs MD [...] return to the emergency room with imaging. [facility] Medical History Abdominal pain Acute bronchitis, unspecified [...] % (Auto) 56.4 Lymph % (Auto) 26.4 Morris % (Auto) 8.3 Eos % (Auto) 8.0 [...] your Primary Care Provider. Call [facility] ([phone]) or report to the closest Emergency Room. Call 911 if necessary. 06/10/22 1120 <Electronically signed by Sorin Jacobs MD> Cosigner Signature (if applicable): CC: Dr. Aleena London MD ~ Signed [facility] Work Phone: Discharge summary Author Yusuf Apple [facility] February 14, 2023 7:59am Note Date/Time February 14, 2023 7:56am [facility] Medical Records Department [address] [place] [address] Instructions for Home/Discharge Instructions 02/14/23 0756 MR#: [id number] Acct: [id number] Name: LANA RIVERA Rep #:[id number] : 1985 37 From: Yusuf Apple DO PCP: Dr. Aleena London MD Status:[place] [facility] Dis[place] Instructions Diet Discharge Diet: No restrictions [...] % cream with perineal applicator 1 applic AR QD-BID PRN (Reason: itching) Qty: 30 2RF [...] CC: Dr. Aleena London MD ~ Signed [facility] Work Phone: Discharge summary Author Ry Enamorado [facility] May 04, 2023 1:14pm Note Date/Time May 04, 2023 1:06pm [facility] Medical Records Department [address] [place] [address] Emergency Department Summary 05/04/23 MR#: [id number] Acct: [id number] Name: LANA RIVERA Rep #:[id number] : 1985 38 From: Ry Enamorado MD [...] sclera of her right eye. Saw her toe sewer at [facility] told her it was a subconjunctival hemorrhage. [...] your Primary Care Provider. Call [facility] ([phone]) or report to the closest Emergency Room. Call 911 if necessary. 05/04/23 1314 <Electronically signed by Ry Enamorado MD> Cosigner Signature (if applicable): CC: Dr. Aleena London MD ~ Signed [facility] Work Phone: Evaluation + Plan note No data available for this section [facility] Evaluation note* Diagnosis Onset Date Resolution Status [...] abdominal pain acute Tinnitus acute Vertigo acute [facility] Work Phone: Evaluation note* Diagnosis Onset Date [...] (nonalcoholic steatohepatitis) acute Chronic RUQ pain chronic [facility] Work Phone: Evaluation note* Diagnosis Onset Date [...] Palpitations acute Menorrhagia with irregular cycle acute [facility] Work Phone: Evaluation note* Diagnosis Onset Date [...] acute 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 [facility] Work Phone: Evaluation note* Diagnosis Onset Date [...] Irritant contact dermatitis due to plant acute [facility] Work Phone: Evaluation note* Diagnosis Onset Date [...] upper extremities chronic Vitamin d deficiency chronic [facility] Work Phone: Evaluation note* Diagnosis Onset Date [...] deficiency chronic Menorrhagia with irregular cycle acute [facility] Work Phone: Evaluation note* Diagnosis Onset Date [...] (nonalcoholic steatohepatitis) acute Chronic RUQ pain chronic [facility] Work Phone: Evaluation note* Diagnosis Onset Date [...] (nonalcoholic steatohepatitis) acute Chronic RUQ pain chronic [facility] Work Phone: Evaluation note* Diagnosis Onset Date [...] Menorrhagia with irregular cycle acute Almaz's thyroiditis 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 Metabolic syndrome chronic NAFLD (nonalcoholic fatty liver disease) acute Obesity acute Fibromyalgia affecting multiple sites acute Meralgia paresthetica of left side acute Sciatica, right side acute Strain of lumbar region acut e Low back pain chronic [facility] Work Phone: Evaluation note* Diagnosis Onset Date [...] Menorrhagia with irregular cycle acute Almaz's thyroiditis 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 Metabolic syndrome chronic NAFLD (nonalcoholic fatty liver disease) acute Obesity acute Fibromyalgia affecting multiple sites acute Meralgia paresthetica of left side acute Sciatica, right side acute Strain of lumbar region acut e Low back pain chronic Chronic low back pain noneac tive Fibromyalgia noneactive [facility] Work Phone: Evaluation note* Diagnosis Onset Date Resolution Status Menorrhagia with irregular cycle acute Early satiety acute MARCELINO (nonalcoholic steatohepatitis) acute Chronic RUQ pain resolved Type 2 diabetes mellitus acu te Essential hypertension chron ic Localized swelling, mass and lump, neck resolved Obesity resolved Menorrhagia with irregular cycle acute Almaz's thyroiditis 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 Metabolic syndrome chronic NAFLD (nonalcoholic fatty [...] syndrome chronic PCOS (polycystic ovarian syndrome) chronic [facility] Work Phone: Evaluation note* Diagnosis Onset Date Resolution Status Menorrhagia with irregular cycle acute Early satiety acute MARCELINO (nonalcoholic steatohepatitis) acute Chronic RUQ pain resolved Type 2 diabetes mellitus acu te Essential hypertension chron ic Localized swelling, mass and lump, neck resolved Obesity resolved Menorrhagia with irregular cycle acute Almaz's thyroiditis 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 Metabolic syndrome chronic NAFLD (nonalcoholic fatty [...] acute Postoperative pain acute Urinary hesitancy acute [facility] Work Phone: Evaluation note* Diagnosis Onset Date Resolution Status Menorrhagia with irregular cycle acute Early satiety acute MARCELINO (nonalcoholic steatohepatitis) acute Chronic RUQ pain resolved Type 2 diabetes mellitus acu te Essential hypertension chron ic Localized swelling, mass and lump, neck resolved Obesity resolved Menorrhagia with irregular cycle acute Almaz's thyroiditis 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 Metabolic syndrome chronic NAFLD (nonalcoholic fatty [...] pain chronic Hypertension chronic Tobacco abuse chronic [facility] Work Phone: Evaluation note* Diagnosis Onset Date Resolution Status Early satiety acute MARCELINO (nonalcoholic steatohepatitis) acute Chronic RUQ pain resolved Type 2 diabetes mellitus acu te Localized swelling, mass and lump, neck resolved Obesity resolved Almaz's thyroiditis 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 Metabolic syndrome chronic Menorrhagia with irregular [...] disorder with panic attacks chronic Almaz's thyroiditis 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 Hypertension chronic Metabolic syndrome chronic PCOS (polycystic ovarian syndrome) chronic Personal history of malignant melanoma chronic Tobacco abuse chronic Abdominal pain resolved Chest pain resolved History of hypertension reso lved [facility] Work Phone: Evaluation note* Diagnosis Onset Date Resolution Status Type 2 diabetes mellitus acu te Localized swelling, mass and lump, neck resolved Obesity resolved Almaz's thyroiditis 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 Metabolic syndrome chronic Menorrhagia with irregular [...] disorder with panic attacks chronic Almaz's thyroiditis 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 Hypertension chronic Metabolic syndrome chronic PCOS (polycystic ovarian syndrome) chronic Personal history of malignant melanoma chronic Tobacco abuse chronic Abdominal pain resolved Chest pain resolved History of hypertension reso lved Postoperative abscess acute Postoperative abscess acute Postoperative pain acute S/P vaginal hysterectomy acu te [facility] Work Phone: Evaluation note* Diagnosis Onset Date Resolution Status Almaz's thyroiditis 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 Metabolic syndrome chronic Menorrhagia with irregular [...] disorder with panic attacks chronic Almaz's thyroiditis 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 Hypertension chronic Metabolic syndrome chronic PCOS (polycystic ovarian syndrome) chronic Personal history of malignant melanoma chronic Tobacco abuse chronic Abdominal pain resolved Chest pain resolved History of hypertension reso lved Postoperative abscess acute Postoperative abscess acute Postoperative pain acute S/P vaginal hysterectomy acu te Nicotine dependence, cigarettes, uncomplicated resolved Ovarian cyst acute Postoperative abscess acute Postoperative pain acute Almaz's thyroiditis 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 Hypertension chronic Vitamin d deficiency chronic Fatigue noneactive Varicose vein of leg noneact jimmie [facility] Work Phone: Evaluation note* Diagnosis Onset Date [...] disorder with panic attacks chronic Almaz's thyroiditis 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 Hypertension chronic Metabolic syndrome chronic PCOS (polycystic ovarian syndrome) chronic Personal history of malignant melanoma chronic Tobacco abuse chronic Abdominal pain resolved Chest pain resolved History of hypertension reso lved Postoperative abscess acute Postoperative abscess acute Postoperative pain acute S/P vaginal hysterectomy acu te Nicotine dependence, cigarettes, uncomplicated resolved Ovarian cyst acute Postoperative abscess acute Postoperative pain acute Almaz's thyroiditis 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 Hypertension chronic Vitamin d deficiency chronic Fatigue noneactive Varicose vein of leg noneact jimmie Ovarian cyst acute Acute bronchitis noneactive [facility] Work Phone: Evaluation note* Diagnosis Onset Date [...] disorder with panic attacks chronic Almaz's thyroiditis 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 Hypertension chronic Metabolic syndrome chronic PCOS (polycystic ovarian syndrome) chronic Personal history of malignant melanoma chronic Tobacco abuse chronic Abdominal pain resolved Chest pain resolved History of hypertension reso lved Postoperative abscess acute Postoperative abscess acute Postoperative pain acute S/P vaginal hysterectomy acu te Nicotine dependence, cigarettes, uncomplicated resolved Ovarian cyst acute Postoperative abscess acute Postoperative pain acute Almaz's thyroiditis 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 Hypertension chronic Vitamin d deficiency chronic Fatigue noneactive Varicose vein of leg noneact jimmie Ovarian cyst acute Acute bronchitis noneactive NAFLD (nonalcoholic fatty liver disease) chronic RUQ abdominal pain chronic [facility] Work Phone: Evaluation note* Diagnosis Onset Date Resolution Status Postoperative pain acute Urinary hesitancy resolved Class II obesity acute Fibromyalgia affecting multiple sites acute MARCELINO (nonalcoholic steatohepatitis) acute Postoperative abscess acute Postoperative pain acute S/P vaginal hysterectomy acu te Sciatica, right side acute Type 2 diabetes mellitus acu te Chronic back pain chronic 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 Almaz's thyroiditis 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 Hypertension chronic Metabolic syndrome chronic PCOS (polycystic ovarian syndrome) chronic Personal history of malignant melanoma chronic Tobacco abuse chronic Abdominal pain resolved Chest pain resolved History of hypertension reso lved Postoperative abscess acute Postoperative abscess acute Postoperative pain acute S/P vaginal hysterectomy acu te Nicotine dependence, cigarettes, uncomplicated resolved Ovarian cyst acute Postoperative abscess acute Postoperative pain acute Almaz's thyroiditis 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 Hypertension chronic Vitamin d deficiency chronic Fatigue noneactive Varicose vein of leg noneact jimmie Ovarian cyst acute Acute bronchitis noneactive NAFLD (nonalcoholic fatty liver disease) chronic RUQ abdominal pain chronic [facility] Work Phone: Evaluation note* Diagnosis Onset Date Resolution Status Ovarian cyst acute Acute bronchitis noneactive NAFLD (nonalcoholic fatty liver disease) chronic RUQ abdominal pain chronic Pectoralis muscle strain non eactive Cough acute Anxiety and depression chron ic Hypertension chronic Left shoulder pain chronic Left shoulder pain chronic [facility] Work Phone: Evaluation note* Diagnosis Onset Date Resolution Status NAFLD (nonalcoholic fatty liver disease) chronic RUQ abdominal pain chronic Pectoralis muscle strain non eactive Cough acute Anxiety and depression chron ic Hypertension chronic Left shoulder pain chronic Left shoulder pain chronic Carpal tunnel syndrome of right wrist noneactive [facility] Work Phone: Evaluation note* Diagnosis Onset Date Resolution Status Pectoralis muscle strain non eactive Cough acute Anxiety and depression chron ic Hypertension chronic Left shoulder pain chronic Left shoulder pain chronic Carpal tunnel syndrome of right wrist noneactive Carpal tunnel syndrome of right wrist noneactive [facility] Work Phone: Evaluation note* Diagnosis Onset Date Resolution Status Pectoralis muscle strain non eactive Cough acute Anxiety and depression chron ic Hypertension chronic Left shoulder pain chronic Left shoulder pain chronic Carpal tunnel syndrome of right wrist noneactive Carpal tunnel syndrome of right wrist noneactive NAFLD (nonalcoholic fatty liver disease) chronic RUQ abdominal pain chronic [facility] Work Phone: Evaluation note* Diagnosis Onset Date [...] e Possible exposure to STD non eactive [facility] Work Phone: Evaluation note* Diagnosis Onset Date [...] e Possible exposure to STD non eactive [facility] Work Phone: Evaluation note* Diagnosis Onset Date [...] Anxiety and depression chron ic Hypertension chronic [facility] Work Phone: Evaluation note* Diagnosis Onset Date [...] left acute Lumbar facet joint syndrome acute [facility] Work Phone: Evaluation note* Diagnosis Onset Date [...] viral diseases acute Acute sinusitis, unspecified resolved [facility] Work Phone: Evaluation note* Diagnosis Onset Date [...] Acute sinusitis, unspecified resolved Orthopedic aftercare acute [facility] Work Phone: Evaluation note* Diagnosis Onset Date [...] Acute sinusitis, unspecified resolved Orthopedic aftercare acute [facility] Work Phone: Evaluation note* Diagnosis Onset Date [...] Orthopedic aftercare acute Climacteric acute Mastalgia acute [facility] Work Phone: Evaluation note* Diagnosis Onset Date [...] Orthopedic aftercare acute Climacteric acute Mastalgia acute [facility] Work Phone: Evaluation note* Diagnosis Onset Date [...] liver disease) chronic RUQ abdominal pain chronic [facility] Work Phone: Evaluation note* Diagnosis Pelvic pain in female- Primary Unspecified symptom associated with female genital organs [facility] Diagnosis Onset Date Resolution Status [...] acu te Pelvic pain acute Vaginitis acute [facility] Work Phone: Evaluation note* Diagnosis Onset Date [...] acu te Pelvic pain acute Vaginitis acute [facility] Work Phone: Evaluation note* Diagnosis NO SHOW- Primary [facility] Diagnosis Onset Date Resolution Status Herniated [...] chronic RUQ abdominal pain chronic Vaginitis acute [facility] Work Phone: Evaluation note* Diagnosis Onset Date [...] chronic Vaginitis acute Class II obesity chronic [facility] Work Phone: Evaluation note* Diagnosis Onset Date [...] Acute pharyngitis acute Breast pain, right acute [facility] Work Phone: Evaluation note* Diagnosis Pain- Primary Generalized pain [facility] Diagnosis Preoperative examination- Primary Preoperative examination, [...] of left shoulder [facility]* Diagnosis Preoperative examination- Primary Preoperative examination, [...] acute or chronic documented in this encounter [facility] note* Diagnosis Onset Date Resolution Status Dermatitis [...] liver disease) chronic RUQ abdominal pain chronic [facility] Work Phone: Evaluation note* Diagnosis Plantar fasciitis- Primary Plantar fascial fibromatosis [facility] Yusuf Apple [facility] February 14, 2023 7:11am Note Date/Time February 14, 2023 7:11am [facility] Medical Records Department [address] [place] [address] History & Physical Exam 02/14/23 0711 MR#: [id number] Acct: [id number] Name: LANA RIVERA Rep #:[id number] : 1985 37 From: Yusuf Apple DO PCP: Dr. Aleena London MD Status:[place] [facility] Location: [place] [address] History and Physical Date of Admission: 02/14/23 [facility] [address] [place] [address] OFFICE VISIT Date of Service: 11/18/22 MR#: [id number] Acct: [id number] Name: LANA RIVERA Rep #: [id number] : 1985 Provider: Dr. Yusuf Apple DO Age/Sex: 37/F [place] [facility] [place] [facility] [place] Status: Signed Intake Vital Signs 09/02/2309:43 11/09/2315:37 [...] by me, Dr. Yusuf Apple, DO 11/18/22 9257. LANA RIVERA is a 37 year old [...] London MD; Dr. Yusuf Apple DO~ Signed [facility] Work Phone: [facility] Work Phone: Hospital Discharge instructions Additional Instructions Do not take your cyclobenzaprine. Take Valium as prescribed as needed. Start your Cymbalta as prescribed by your pain doctor. Start your steroids a report is at the pharmacy. We discussed with Dr. Avilez for possible tramadol as he noted on his consult if needed. Follow- up with your doctors.[facility] Work Phone: Hospital Discharge instructions Additional Instructions Please follow-up outpatient.[facility] Work Phone: Hospital Discharge instructions Additional Instructions Follow-up with Dr. Tracy and your medical legal investigator.[facility] Work Phone: Hospital Discharge instructions Additional Instructions Today your cardiac work-up was normal. Based on your examination I think you have musculoskeletal pain in the trapezius and shoulder area and prescribed a different muscle relaxer you can try. You can also add Tylenol 1000 mg every 6 hours to your regimen of ketoprofen. Please follow-up with your primary care doctor.[facility] Work Phone: Hospital Discharge instructions Additional Instructions UpPlease follow-up with your PUBLIC TRANSPORTATION INSPECTOR for this pain. Lives at antibiotic ointment to the open wounds in your left groin. I we have referred you to general surgery for further evaluation of these lymph nodes and pain in your thigh. You can continue to take your anti-inflammatory (ketoprofen) for pain. Apply cool compresses to the area.[facility] Work Phone: Hospital Discharge instructions Additional Instructions [...] discuss further pain management. You can try [id number] 4% exercise Lidoderm patches. Please continue to follow-up with your outpatient ultrasound for your lymph nodes and with surgery as well. I would recommend that you follow-up with your breaker layer. I will give you information for a spine doctor in case this pain is actually coming from your back.[facility] Work Phone: Hospital Discharge instructions Additional Instructions Take baby aspirin every day along with warm/hot compresses to affected area 2-3 times daily until pain resolved.[facility] Work Phone: Hospital Discharge instructions Additional Instructions This should improve over the next week.[facility] Work Phone: Reason for referral (narrative)* Diagnostic Procedure Only (Routine) - Authorized Specialty Diagnoses / Procedures Referred By Contac zamzam Referred To Contact XR IMAGING Diagnoses Pain Procedures XR FOOT GENERAL 3V AP/LAT/OBL RIGHT RADEX FOOT COMPLETE MINIMUM 3 VIEWS Patrick Fontaine [address] [place] [address] [place] [address] Referral ID Status Reason Start Date Expiration Date Visits Requested Visits Authorized [id number] Authorized Auto-Generat ed Referral 11/20/2023 12/19/2024 1 1 [facility] for referral (narrative)* Diagnostic Procedure Only (Urgent) - Closed Specialty Diagnoses / Procedures Referred By Elaina wyman Referred To Contact XR IMAGING Diagnoses Acute pain of left shoulder Procedures XR SHOULDER GENERAL 3V OR MORE AP/TRUE AP/OTHER LT X-RAY SHOULDER COMPLET MIN 2 VIEWS Kavita Jurado, PATerrieC [address] [place] [address] [place] [address] Referral ID Status Reason Start Date Expiration Date V isits Requested Visits Authorized Closed Auto-Generate d Referral 12/31/2020 01/30/2022 1 1 [facility] for visit Narrative* Diagnostic Procedure Only (Urgent) - Closed Specialty Diagnoses / Procedures Referred By Contac t Referred To Contact XR IMAGING Diagnoses Acute pain of left shoulder Procedures XR SHOULDER GENERAL 3V OR MORE AP/TRUE AP/OTHER LT X-RAY SHOULDER COMPLET MIN 2 VIEWS Kavita Jurado PA-C [address] [place] [address] [place] [address] Referral ID Status Reason Start Date Expiration Date V isits Requested Visits Authorized Closed Auto-Generate d Referral 12/31/2020 01/30/2022 1 1 [facility] Summary Purpose Family History No Family [...] No August 20, 2021 3:48pm Power of Marketing Clerk No August 20 3:48pm Advance Directive Response Recorded Date/ Time Advance Directives No June 29, 2021 12:31pm Living Will No August 25, 2021 10:11pm Power of Marketing Clerk No August 25 10:11pm Advance Directive Response Recorded Date/ Time Advance Directives No June 29, 2021 12:31pm Living Will No November 27, 2021 1 :20am Power of Marketing Clerk No November 27, 2021 1:20am Advance Directive Response Recorded Date/ Time Advance Directives No December 14 10:42am Living Will No December 23, 2021 10:29pm Power of Marketing Clerk No December 23 10:29pm Advance Directive Response Recorded Date/ Time Advance Directives No December 24 9:47am Living Will No December 24, 2021 9:47am Power of Marketing Clerk No December 24 9:47am Advance Directive Response Recorded Date/ Time Advance Directives No December 24 9:47am Living Will No February 15, 2022 11:42am Power of Marketing Clerk No January 11:42am Advance Directive Response Recorded Date/ Time Advance Directives No December 24 9:47am Living Will No March 04 2:10pm Power of Marketing Clerk No March 04, 2022 2:10pm Advance Directive Response Recorded Date/ Time Advance Directives No December 24 9:47am Living Will No March 12 12:40pm Power of Marketing Clerk No March 12, 2022 12:40pm Advance Directive Response Recorded Date/ Time Advance Directives No December 24 9:47am Living Will No March 22 5:41pm Power of Marketing Clerk No March 22, 2022 5:41pm Advance Directive Response Recorded Date/ Time Advance Directives No December 24 8:47am Living Will No March 30 3:11pm Power of Marketing Clerk No March 30, 2022 3:11pm Advance Directive Response Recorded Date/ Time Advance Directives No December 24 8:47am Living Will No April 12 4:52pm Power of Marketing Clerk No April 12, 2022 4:52pm Advance Directive Response Recorded Date/ Time Advance Directives No December 24 8:47am Living Will No April 12 8:56pm Power of Marketing Clerk No April 12, 2022 8:56pm Advance Directive Response Recorded Date/ Time Advance Directives No December 24 8:47am Living Will No April 18 5:38pm Power of Marketing Clerk No April 18, 2022 5:38pm Advance Directive Response Recorded Date/ Time Advance Directives No December 24 8:47am Living Will No May 22 11:57pm Power of Marketing Clerk No May 22 11:57pm Advance Directive Response Recorded Date/ Time Advance Directives No December 24 8:47am Living Will No June 10 9:17am Power of Marketing Clerk No June 10, 2022 9:17am Advance Directive Response Recorded Date/ Time Advance Directives No December 24 8:47am Living Will No July 17 7:06pm Power of Marketing Clerk No July 17, 2022 7:06pm Advance Directive Response Recorded Date/ Time Advance Directives No December 24 9:47am Living Will No July 17 8:06pm Power of Marketing Clerk No July 17, 2022 8:06pm Advance Directive Response Recorded Date/ Time Advance Directives No December 24 9:47am Living Will No August 26, 2022 3:23pm Power of Marketing Clerk No August 26 3:23pm Advance Directive Response Recorded Date/ Time Advance Directives No December 24 9:47am Living Will No November 08, 2022 4:52pm Power of Marketing Clerk No November 08 4:52pm Advance Directive Response Recorded Date/ Time Advance Directives No December 24 9:47am Living Will No November 19, 2022 9 :51pm Power of Marketing Clerk No November 19, 2022 9:51pm Advance Directive Response Recorded Date/ Time Advance Directives No November 24 2:09pm Living Will No November 25, 2022 2 :14pm Power of Marketing Clerk No November 25, 2022 2:14pm Advance Directive Response Recorded Date/ Time Advance Directives No December 13 10:51am Living Will No December 13, 2022 10:51am Power of Marketing Clerk No December 13 10:51am Advance Directive Response Recorded Date/ Time Advance Directives No December 13 10:51am Living Will No December 25, 2022 1:19pm Power of Marketing Clerk No December 25 1:19pm Advance Directive Response Recorded Date/ Time Advance Directives No December 13 10:51am Living Will No February 04, 2023 7:53pm Power of Marketing Clerk No January 7:53pm Advance Directive Response Recorded Date/ Time Advance Directives No December 13 10:51am Living Will No February 08, 2023 6:47pm Power of Marketing Clerk No January 6:47pm Advance Directive Response Recorded Date/ Time Advance Directives No January 10:58am Living Will No February 10, 2023 10:58am Power of Marketing Clerk No January 10:58am Advance Directive Response Recorded Date/ Time Advance Directives No March 16, 2023 7:15am Living Will No March 16 7:15am Power of Marketing Clerk No March 16, 2023 7:15am Advance Directive Response Recorded Date/ Time Advance Directives No March 16, 2023 7:15am Living Will No April 17, 023 4:04pm Power of Marketing Clerk No April 17, 2023 4:04pm Advance Directive Response Recorded Date/ Time Advance Directives No March 16, 2023 7:15am Living Will No May 04, 12:57pm Power of Marketing Clerk No May 04, 2023 12:57pm Advance Directive Response Recorded Date/ Time Advance Directives No March 16, 2023 7:15am Living Will No July 18 10:49pm Power of Marketing Clerk No July 18, 2023 10:49pm Advance Directive Response Recorded Date/ Time Advance Directives No March 16, 2023 7:15am Living Will No July 25, 2023 8:51pm Power of Marketing Clerk No July 24 8:51pm Advance Directive Response Recorded Date/ Time Advance Directives No August 07, 024 8:42am Living Will No August 08, 2023 8:42am Power of Marketing Clerk No August 07 8:42am Advance Directive Response Recorded Date/ Time Advance Directives No March 16, 2023 8:15am Living Will No July 25, 2023 9:51pm Power of Marketing Clerk No July 24 9:51pm Advance Directive Response Recorded Date/ Time Advance Directives No March 16, 2023 8:15am Living Will No September 08, 2023 10:23am Power of Marketing Clerk No September 07 10:23am Advance Directive Response Recorded Date/ Time Advance Directives No March 16, 2023 8:15am Living Will No September 29, 2023 3 :36pm Power of Marketing Clerk No September 29, 2023 3:36pm Chief Complaint and Reason for Visit Chief Complaint Back Pain, Fall 2 M FU PHONE-COLD SYMPTOMS COVID TEST bp issues 6-8 WK F/UP RUQ PAIN abd pain anxiety /insomnia enlarged liver & spleen FATTY LIVER CP/ANXIETY/REF. OHVP boil inner thigh PALPS HTN CHEST PAIN CERVICAL/ RX HERE Annual (DISPLAY MANAGER) 6 WK FU DIZZY SPELLS ABD PAIN [...] HTN CHEST PAIN CERVICAL/ RX HERE Annual (DISPLAY MANAGER) 6 WK FU DIZZY SPELLS ABD PAIN [...] HTN CHEST PAIN CERVICAL/ RX HERE Annual (DISPLAY MANAGER) 6 WK FU DIZZY SPELLS ABD PAIN [...] inner thigh PALPS HTN CHEST PAIN Annual (DISPLAY MANAGER) 6 WK FU DIZZY SPELLS ABD PAIN neck pain CHEST CONGESTION/COUGH consult ablation ER FU fluid in ears AUB CP/[facility] CERVICAL/ RX HERE 1 MO FU [...] inner thigh PALPS HTN CHEST PAIN Annual (DISPLAY MANAGER) 6 WK FU DIZZY SPELLS ABD PAIN neck pain CHEST CONGESTION/COUGH consult ablation ER FU fluid in ears AUB CP/[facility] CERVICAL/ RX HERE 1 MO FU [...] inner thigh PALPS HTN CHEST PAIN Annual (DISPLAY MANAGER) 6 WK FU DIZZY SPELLS ABD PAIN neck pain CHEST CONGESTION/COUGH consult ablation ER FU fluid in ears AUB CP/[facility] CERVICAL/ RX HERE 1 MO FU [...] Almaz's thyroiditis 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] Referred By Elaina t Referred To Contact Repair Service Clerk Diagnoses Pelvic pain in female Procedures CONSULT TO GYNECOLOGY Lukasz Eubanks MD [address] [place] [address] Fatmata England DO [address] [place] [address] Referral ID Status Reason Start Date Expiration Date Visits Requested Visits Authorized [id number] Ref Not Required PCP Requested Referral 11/17/2022 11/16/2023 1 1 Additional Source Comments INFORMATION SOURCE (unrecogn ized section and content) DATE CREATED AUTHOR 11/15/2017 [facility] DATE CREATED AUTHOR AUTHOR'S ORGANIZ ATION 11/29/2017 [facility] DATE CREATED AUTHOR AUTHOR'S ORGANIZ ATION 07/07/2022 [facility] DATE CREATED AUTHOR AUTHOR'S ORGANIZ ATION 07/21/[address] [facility] DATE CREATED AUTHOR AUTHOR'S ORGANIZ ATION 10/11/2022 [facility] ([place] DATE CREATED AUTHOR AUTHOR'S ORGANIZ ATION 04/14/2023 [facility] DATE CREATED AUTHOR AUTHOR'S ORGANIZ ATION 07/09/2023 [facility] DATE CREATED AUTHOR AUTHOR'S ORGANIZ ATION 08/30/2023 [facility] DATE CREATED AUTHOR AUTHOR'S ORGANIZ ATION 06/26/2024 [facility] DATE CREATED AUTHOR AUTHOR'S ORGANIZ ATION 11/06/2024 [facility] DATE CREATED AUTHOR AUTHOR'S ORGANIZ ATION 12/19/2024 [facility] Goals (unrecognized section and content) Goals [...] Provider, Refer ring Provider Active Rea Poon PICKLE MAKER, PICKLE MAKER-C Attending Provider Active Team Status: Inactive Member [...] Provider, Refer ring Provider Active Libertad Stubbs PICKLE MAKER, PICKLE MAKER-C Attending Provider Active Team Status: Active Member [...] Care Provider, Refer ring Provider Active ADRI Botlelo Attending Provider Active Team Status: Inactive Member [...] MD Primary Care Provider Active Rea Poon PICKLE MAKER, PICKLE MAKER-C Attending Provider, Referrin g Provider Active Dr. [...] MD Primary Care Provider Active Rea Poon PICKLE MAKER, PICKLE MAKER-C Attending Provider Active Team Status: Inactive Member Role Status Dates Dr. Aleena London MD Primary Care Provider Active Dr. Darke Le , DO Emergency Provider Active Team Status: Inactive Member Role Status Dates Dr. Aleena London MD Primary Care Provider Active Dr. Dimple Lynn DO Attending Provider, Refe rring Provider Active Team Status: Inactive Member Role Status Dates Dr. Aleena London MD Primary Care Provider Active Rea Poon PICKLE MAKER, PICKLE MAKER-C Attending Provider Active Team Status: Inactive Member Role Status Dates Dr. Aleena London MD Primary Care Provider, Refer ring Provider Active Hanh Balderas PICKLE MAKER, PICKLE MAKER-C Attending Provider Active Team Status: Inactive Member Role Status Dates Dr. Aleena London MD Primary Care Provider, Refer ring Provider Active Deysi Mcfarlane PICKLE MAKER, PICKLE MAKER-C Attending Provider Active Team Status: Active Member [...] MD Primary Care Provider Active Hanh Balderas PICKLE MAKER, PICKLE MAKER-C Attending Provider, Referring Provider Active Team Status: Inactive Member Role Status Dates Dr. Aleena London MD Primary Care Provider Active Dr. Ry Enamorado MD Emergency Provider Active Vocational Rehabilitation Supervisor Relationship Specialty Start Date End Date Dimple Lynn [address] [place] [address] [place] [address] PUBLIC TRANSPORTATION INSPECTOR 12/15/22 Team Status: Inactive Member Role Status [...] Dr. Greg Melgar DO Referring Provider Active Vocational Rehabilitation Supervisor Relationship Specialty Start Date End Date Nima Kaur MD [address] [place] [address] PCP - General Family Medicine 04/30/13 02/01/23 [...] MD Attending Provider, Referrin g Provider Active Vocational Rehabilitation Supervisor Relationship Specialty Start Date End Date Aleena London [address] [place] [address] PCP - General 07/27/23 Dimple Lynn [address] [place] [address] Repair Service Clerk 12/15/22 Team Status: Inactive Member Role Status [...] P rovider, Attending Provider, Referring Provider Active Vocational Rehabilitation Supervisor Relationship Specialty Start Date End Date Aleena London [address] [place] [address] PCP - General 07/27/23 Dimple Lynn [address] [place] [id number] Repair Service Clerk 12/15/22 Vocational Rehabilitation Supervisor Relationship Specialty Start Date End Date Nima Kaur MD [address] [place] [address] PCP - General Family Medicine 04/30/13 02/01/23 Vocational Rehabilitation Supervisor Relationship Specialty Start Date End Date Nima Kaur MD [address] [place] [address] PCP - General Family Medicine 04/30/13 02/01/23 Vocational Rehabilitation Supervisor Relationship Specialty Start Date End Date Aleena London MD [address] [place] [address] PCP - General Internal Medicine 03/13/21 Source Comments (unrecognize d section and content) In the event this informatio n is protected by the Federal Confidentiality of Alcohol and Drug Abuse Patient Records regulations: The Federal rules restrict any use of the information to criminally investigate or prosecute any alcohol or drug abuse patient.[facility] the event this information is protected by the Federal Confidentiality of Alcohol and Drug Abuse Patient Records regulations: The Federal rules restrict any use of the information to criminally investigate or prosecute any alcohol or drug abuse patient.[facility] the event this information is protected by the Federal Confidentiality of Alcohol and Drug Abuse Patient Records regulations: The Federal rules restrict any use of the information to criminally investigate or prosecute any alcohol or drug abuse patient.[facility] the event this information is protected by the Federal Confidentiality of Alcohol and Drug Abuse Patient Records regulations: The Federal rules restrict any use of the information to criminally investigate or prosecute any alcohol or drug abuse patient.[facility] the event this information is protected by the Federal Confidentiality of Alcohol and Drug Abuse Patient Records regulations: The Federal rules restrict any use of the information to criminally investigate or prosecute any alcohol or drug abuse patient.[facility] the event this information is protected by the Federal Confidentiality of Alcohol and Drug Abuse Patient Records regulations: The Federal rules restrict any use of the information to criminally investigate or prosecute any alcohol or drug abuse patient.[facility] Reason for Visit (unrecogniz ed [...] BE BASED ON THE PRIMARY CLINICAL RECORDS. [facility]. provides no warranty or guarantee of the accuracy or completeness of information in this document.
== END | disposition home or self-care (01) ==
LOC: CVS 22:50
PROVIDERS: PCP Internal Medicine; Referring Provider Internal Medicine Cardiovascular Disease; Visit Provider Internal Medicine Cardiovascular Disease
DX: R00.2 Palpitations (principal)
CPT/HCPCS: 93225; 93226

== ENCOUNTER → 2025-01-03 | Outpatient (CLI) | payer MEDICAID, SELFPAY ==
--- NOTE | 2025-01-03 13:55 | MRI_ITS ---
PROCEDURE: SPINE CERVICAL (ROUTINE) 01/03/2025 REASON FOR EXAM: PAIN, MYELOPATHY AND RADICULOPATHY TECHNIQUE: SPINE CERVICAL (ROUTINE) Multiplanar and multisequence images were obtained without IV contrast administration. COMPARISON: None. FINDINGS: Vertebrae: Cervical vertebral body heights are preserved. Bone marrow signal is unremarkable. Alignment: Normal. No spondylolisthesis. Spinal Cord: Cervical spinal cord is of normal size and signal intensities. Structures at the foramen magnum are unremarkable. C2-3: Disc osteophyte complex measures 2 mm. Mild canal stenosis. Facet joint arthropathy. No foramina stenosis. C3-4: Mild canal stenosis. No significant foramina stenosis. C4-5: Disc osteophyte complex indents upon the thecal sac. Mild canal stenosis. Facet joint arthropathy. Moderate bilateral foramina stenosis. C5-6: Disc osteophyte complex measures 2 mm. Mild canal stenosis. No significant foraminal stenosis. C6-7: Disc osteophyte complex. No significant foraminal or canal stenosis. C7-T1: No significant foraminal or canal stenosis. MRI/Spine Cervical (Routine) IMPRESSION: Degenerate changes predominantly at C4-C5 where there is disc osteophyte comple x indents upon the thecal sac causing mild canal stenosis and moderate bilateral foramina stenosis. Otherwise, no significant foraminal or canal stenosis. Reading Location: [facility]
== END | disposition home or self-care (01) ==
LOC: MRI 13:26
PROVIDERS: PCP Internal Medicine; Referring Provider Student in an Organized Health Care Education/Training Program; Visit Provider Student in an Organized Health Care Education/Training Program
DX: G95.9 Disease of spinal cord, unspecified (principal); M54.12 Radiculopathy, cervical region
CPT/HCPCS: 72141

== ENCOUNTER 2025-01-30 10:06 | Emergency (ER) | payer MEDICAID, SELFPAY ==
[2025-01-30 10:07] VITALS: BP 130/92; PULSE 76; RESP 15; TEMP 37; O2SAT 99; BMI 39.6
--- NOTE | 2025-01-30 10:16 | EX.ED.VIS.HA ---
HPI History of Present Illness Chief Complaint: Headache Informant: patient Onset/Context/Timing Onset: Days (3) Context: Gradual Timing: Continuous Quality -Headache: Positive for Similar Prior Headaches Location: Frontal Worsened by: Nothing Relieved by: Closing her eyes Associated Symptoms/Injury Associated Symptoms: Positive for Sinus Pressure, Blurred Vision and Photophobia; Negative for Fever, Nausea, Vomiting, Sore Throat, Numbness, Tingling, Preceding Aura, Visual Changes or Visual Loss Narrative Narrative: Patient presents with a headache that has been getting worse over the past 3 days. Patient states it came on gradually. Patient states it is mainly over the frontal area. Patient describes it as a pressure. Patient states she did have blurry vision yesterday. Patient states it is better when she is able to close her eyes. Patient admits to some discomfort with the lights. Patient denies any fevers or chills. Patient denies any nausea or vomiting. Patient denies any paresthesias or weakness. PFSH [facility] Medical History Bacterial sinusitis Dysfunction of right eustachian tube Obesity (BMI 30-39.9) Borderline type 2 diabetes mellitus Hx of flexible sigmoidoscopy Wears glasses Heartburn Bronchitis History of edema Hx of fracture of arm Deep vein blood clot of right lower extremity DVT (deep venous thrombosis) Right foot sprain Right ankle sprain Breast pain, right Herniated nucleus pulposus, C4-5 Contact with or exposure to other viral diseases Dermatitis PONV (postoperative nausea and vomiting) Leg cramps Anxiety and depression Left shoulder pain Depression Chronic pain Cancer Arthritis Fatty liver Restless legs Back pain Injury of head and neck Syncope Fibromyalgia History of pain when walking Hypertension History of echocardiogram History of stress test Cardiology follow-up encounter Localized swelling, mass and lump, neck Cervical lymphadenopathy Heartburn Chronic RUQ pain Tinnitus Vertigo Ectopic cardiac beats Palpitations RUQ abdominal pain Cervical radiculopathy Chronic back pain Left-sided low back pain with left-sided sciatica Hypocalcemia Tobacco abuse Bronchitis Morbid obesity Post herpetic neuralgia NICOLÁS (generalized anxiety disorder) ADHD (attention deficit hyperactivity disorder), combined type Numbness and tingling of both upper extremities Numbness of both lower extremities Migraine without aura and with status migrainosus, not intractable PCOS (polycystic ovarian syndrome) History of gestational diabetes Almaz's thyroiditis History of acne Thyroid disease Home Medications ?Medication ?Instructions ?Recorded ?Last Taken ?Type albuterol sulfate 2.5 mg/3 mL 2.5 mg (3 mL) inhalation Q6H PRN 01/16/24 Unknown Rx (0.083 %) solution for nebulization shortness of breath or wheezing #90 mL compress.stocking,knee,reg,lrg #2 ea 03/21/24 Unknown Rx albuterol sulfate 90 mcg/actuation 2 puff inhalation Q6H PRN 05/03/24 Unknown Rx aerosol inhaler shortness of breath or wheezing #8.5 grams ursodiol 300 mg capsule 300 mg PO BID #180 caps 05/29/24 Unknown Rx aspirin 81 mg tablet,delayed 81 mg PO DAILY 07/08/24 08/26/24 History release (Adult Low Dose Aspirin) oxycodone-acetaminophen 5 mg-325 1 tab PO Q6H PRN PRN pain 07/08/24 12/20/24 14:30 History mg tablet amlodipine 5 mg tablet 5 mg PO DAILY for blood pressure 10/21/24 Unknown Rx #90 TABLETS silver sulfadiazine 1 % topical 1 applic topical QDAY #50 grams 11/14/24 Unknown Rx cream (Silvadene) triamcinolone acetonide 0.5 % 1 applic topical TID PRN rash #15 11/14/24 Unknown Rx topical cream grams rosuvastatin 10 mg tablet 10 mg PO QHS 12/09/24 Unknown History ketoprofen 75 mg capsule 75 mg PO Q6H PRN Migraine Symptoms 12/17/24 Unknown Rx #100 caps lorazepam 1 mg tablet (Ativan) 1 mg PO TID PRN anxiety #10 tabs 12/20/24 Unknown Rx levothyroxine 137 mcg tablet 137 mcg PO DAILY synthroid #90 tabs 01/08/25 Unknown Rx prochlorperazine maleate 10 mg 10 mg PO BID PRN for migraine #30 01/08/25 Unknown Rx tablet TABLETS dexamethasone 6 mg tablet 6 mg PO DAILY #7 tabs 01/24/25 Unknown Rx Allergy/AdvReac Type Severity Reaction Status Date / Time latex Allergy Itching Verified 01/30/25 10:21 naproxen Allergy Unknown Verified 01/30/25 10:21 Penicillins (PCN) Allergy Rash Verified 01/30/25 10:21 escitalopram (From Lexapro) AdvReac Intermediate Lightheaded Verified 01/30/25 10:21 sertraline (From Zoloft) AdvReac Intermediate Dizzy & Verified 01/30/25 10:21 Headache NSAIDS (Non-Steroidal AdvReac Mild Other Verified 01/30/25 10:21 Anti-Inflamma hydrocodone (From Vicodin) AdvReac Other Verified 01/30/25 10:21 ketorolac (From Toradol) AdvReac Other Verified 01/30/25 10:21 Family History Grandmother Diabetes Hypertension Hypercholesterolemia Thyroid disorder Mother Family history of skin cancer Other High cholesterol Surgical History History of varicose vein ligation (08/27/24) History of carpal tunnel surgery of right wrist History of surgery on lower extremity Status post incision and drainage (~04/15/22) History of total vaginal hysterectomy (TVH) (~03/22/22) History of thyroidectomy Social History household members: spouse housing: house Smoking Status: Current every day smoker tobacco type: cigarettes Tobacco: How many years used: 13 Electronic Cigarette Use: not used second hand exposure: No alcohol intake: current alcohol intake frequency: holidays/special occasions only substance use type: does not use caffeine: Yes what type of physical activity do you participate in: none seatbelt use: always do you feel safe at home: Yes additional social history: emmy [facility] ED Constitutional Constitutional ED: Denies chills or fever(s) Eyes Eyes: Reports blurry vision; Denies change in vision ENT ENT ED: Denies rhinorrhea or sore throat Cardiovascular Cardiovascular: Denies chest pain or palpitations Respiratory/Chest Respiratory/Chest: Reports cough; Denies dyspnea Gastrointestinal Gastrointestinal: Denies nausea or vomiting Genitourinary Genitourinary ED: Denies dysuria or hematuria Musculoskeletal Musculoskeletal: Reports neck pain; Denies back pain Integumentary Denies abscess or rash Neurologic Neurologic: Reports headache(s); Denies weakness Allergic/Immunologic Allergic/Immunologic ED: Denies mouth swelling or urticaria EXAM Physical Exam Const Vital Signs: 01/30/25 10:07 Temperature 98.6 F Temperature Source Oral Pulse Rate 76 Respiratory Rate 15 Blood Pressure 130/92 H Blood Pressure Mean 104 Pulse Ox 99 Oxygen Delivery Method Room Air Positive well nourished and well developed General Appearance ED: well developed and NAD HEENT Reports normocephalic and moist mucous membranes atraumatic; Negative for temporal artery tenderness Face and Sinus: Negative for sinus tenderness Eyes PERRL and EOMs intact bilaterally Neck supple and no JVD Resp normal respiratory effort and clear to auscultation bilaterally Cardio regular rate and regular rhythm GI non-tender and non-distended Palpation: soft Extremity normal to inspection and full ROM Neuro oriented x3, CN's II-XII intact bilaterally and no sensory deficits noted [place] Coma Scale: document GCS findings Spontaneous Obeys Commands Oriented 15 Sensorium / Orientation: awake and alert Speech: speech normal Motor Exam: strength 5/5 throughout Psych mental status grossly normal MDM MDM MDM Narrative Medical decision making narrative: Differential diagnosis includes sinusitis, migraine headache, tension headache, and anxiety. CT scan of the brain will be obtained to assess for sinusitis and intracranial bleeding. Radiography Diagnostic Testing: Clinical Impression(s) from Imaging Studies Brain CT 01/30/25 11:20 IMPRESSION: No CT evidence of acute intracranial hemorrhage, transcortical infarct, or significant mass effect. Right mastoid air cell effusion. Reading Location: [id number] CT scan of the brain was obtained. There is no acute intracranial abnormality. This was interpreted by the radiologist and was also independently reviewed by myself. Treatment and Re-Evaluation Narrative: Patient drove herself to the emergency department. Therefore, opiate analgesics and Benadryl are not able to be administered. Patient was given a dose of her Compazine. Patient was feeling somewhat better on reevaluation. Patient was advised of her findings. Patient was instructed to rest in a dark quiet room. Patient was instructed to follow-up with her primary care physician in 5 to 7 days. Patient understood and was agreeable with the plan. All questions were answered. Discharge Plan Triage Chief Complaint: Headache ED Provider: Greg Melgar Dx/Rx/DC Orders Clinical Impression: Migraine, Tobacco abuse Instructions: ED Headache Unspecified Prescriptions: No Action albuterol sulfate 90 mcg/actuation HFA aerosol inhaler 2 puff inhalation Q6H PRN (Reason: shortness of breath or wheezing) Qty: 8.5 0RF ursodiol 300 mg capsule 300 mg PO BID Qty: 180 1RF levothyroxine 137 mcg tablet 137 mcg PO DAILY Qty: 90 1RF prochlorperazine maleate 10 mg tablet 10 mg PO BID PRN (Reason: for migraine) Qty: 30 3RF triamcinolone acetonide 0.5 % cream 1 applic topical TID PRN (Reason: rash) Qty: 15 1RF silver sulfadiazine [Silvadene] 1 % cream 1 applic topical QDAY Qty: 50 0RF Rx Instructions: apply a 1.5 mm thickness dexamethasone 6 mg tablet 6 mg PO DAILY Qty: 7 0RF oxycodone-acetaminophen 5-325 mg tablet 1 tab PO Q6H PRN PRN (Reason: pain) aspirin [Adult Low Dose Aspirin] 81 mg tablet,delayed release (DR/EC) 81 mg PO DAILY lorazepam [Ativan] 1 mg tablet 1 mg PO TID PRN (Reason: anxiety) Qty: 10 0RF rosuvastatin 10 mg tablet 10 mg PO QHS albuterol sulfate 2.5 mg /3 mL (0.083 %) solution for nebulization 2.5 mg inhalation Q6H PRN (Reason: shortness of breath or wheezing) Qty: 90 1RF (DME) compress.stocking,knee,reg,lrg Misc See Rx Instructions .MEDSUPPLY Qty: 2 1RF Rx Instructions: wear daily for venous insufficiency 20-30 mmHg amlodipine 5 mg tablet 5 mg PO DAILY Qty: 90 0RF ketoprofen 75 mg capsule 75 mg PO Q6H PRN (Reason: Migraine Symptoms) Qty: 100 1RF Rx Instructions: 1 cap PO at on set of headache max of 3 in 24 hours, max 20 per month Stand Alone Forms: ED Work / School Excuse Primary Care Provider: Jose Alejandro London Referrals: Jose Alejandro London MD [Primary Care Provider] - 5-7 Days Print Language: Peruvian Disposition Disposition: Home, Self Care
--- NOTE | 2025-01-30 11:20 | CT_ITS ---
PROCEDURE: BRAIN/HEAD WITHOUT CONTRAST 01/30/2025 REASON FOR EXAM: Clinical history of frontal sinus pain TECHNIQUE: Procedure Code: CTBR Modality: CT Procedure: BRAIN/HEAD WITHOUT CONTRAST Coronal and Sagittal reconstruction series were provided. One or more dose reduction techniques were used (e.g., Automated exposure control, adjustment of the mA and/or kV according to patient size, use of iterative reconstruction technique. RADIATION DOSE SUMMARY: DLP: 837 mGycm COMPARISON: CT head 10/06/2024 FINDINGS: No acute hemorrhage. No acute infarct. No significant mass effect or brain herniation. The ventricular system and sulci/fissures are within normal limits of size and configuration for the patient's stated age. No extra-axial fluid collection. The basal cisterns are patent. Right mastoid air cell effusion. The paranasal sinuses are predominantly clear. The calvarium appears intact. CT/Brain/Head without Contrast IMPRESSION: No CT evidence of acute intracranial hemorrhage, transcortical infarct, or sign ificant mass effect. Right mastoid air cell effusion. Reading Location: [id number]
[2025-01-30 12:16] VITALS: BP 127/80; PULSE 63; RESP 16; TEMP 36.8; O2SAT 100
== END 2025-01-30 12:18 | disposition home or self-care (01) ==
PROVIDERS: Emergency Provider Emergency Medicine; PCP Internal Medicine; Visit Provider Emergency Medicine
DX: G43.909 Migraine, unspecified, not intractable, without status migrainosus (principal); Z90.710 Acquired absence of both cervix and uterus; I10 Essential (primary) hypertension; Z79.82 Long term (current) use of aspirin; Z79.899 Other long term (current) drug therapy; F41.1 Generalized anxiety disorder; F17.210 Nicotine dependence, cigarettes, uncomplicated
CPT/HCPCS: 70450; 99282

== ENCOUNTER → 2025-02-03 | Outpatient (CLI) | payer MEDICAID, SELFPAY ==
--- NOTE | 2025-02-03 12:54 | VDLE_ITS ---
Reason For Study Reason For Study: Swelling RLE RIGHT LEFT SFJ is occluded s/p ligation CFV is compressible, spontaneous, phasic, competent, GSV is occluded throughout s/p Venaseal ablation. and demonstrates normal augmentation. CFV is partially compressible with bright intraluminal echoes consistent with Chronic DVT. Flow appears spontaneous and phasic with normal augmentation FV is partially compressible with bright intraluminal echoes consistent with Chronic DVT. Flow appears spontaneous, phasic and INCOMPETENT for greater than 1.0 second. POP V is compressible, phasic, and INCOMPETENT for greater than 1.0 second. T/P Trunk is compressible. PTV is compressible. RT PerV is compressible. VL/Venous Duplex US, Unilateral Interpretation Summary Deep veins of the right lower extremity are patent and compressible segmentally . There is no evidence of right lower extremity deep vein thrombosis. Unchanged appearance/wall thickening. Occlusion of great saphenous vein consistent with recent ablation. Ordering Physician: Britany Nuñez Referring Physician: Jose Alejandro London Performed By: Nicolasa Alexandre, RDCS, RVT
== END | disposition home or self-care (01) ==
LOC: CVS 12:54
PROVIDERS: PCP Internal Medicine; Referring Provider Physician Assistant; Visit Provider Physician Assistant
DX: R22.41 Localized swelling, mass and lump, right lower limb (principal); M79.89 Other specified soft tissue disorders
CPT/HCPCS: 93971

== ENCOUNTER → 2025-02-06 | Outpatient (CLI) | payer MEDICAID, SELFPAY ==
--- NOTE | 2025-02-06 11:24 | RAD_ITS ---
PROCEDURE: L/S SPINE MIN 4 VIEWS 02/06/2025 REASON FOR EXAM: PAIN TECHNIQUE: Procedure Code: RADSPLS Modality: DX Procedure: L/S SPINE MIN 4 VIEWS COMPARISON: November 11, 2024 FINDINGS: Lumbar vertebral body height is maintained. There is 25% compression deformity T12, unchanged from the prior. There is no significant spondylolisthesis. Facets are aligned. Disc spaces are narrowed from T11-L1, unchanged. Mineralization is normal. There is no significant atherosclerosis. RAD/L/S Spine Min 4 Views IMPRESSION: There is 25% compression deformity T12, unchanged from the prior. There is no significant spondylolisthesis. Facets are aligned. Disc spaces are narrowed from T11-L1, unchanged. Reading Location: [facility]
== END | disposition home or self-care (01) ==
LOC: MTRAD 11:24
PROVIDERS: PCP Internal Medicine; Referring Provider Physician Assistant Surgical; Visit Provider Physician Assistant Surgical
DX: M54.50 Low back pain, unspecified (principal)
CPT/HCPCS: 72110

== ENCOUNTER 2025-02-13 14:23 | Outpatient (CLI) | payer MEDICAID, SELFPAY ==
--- NOTE | 2025-02-13 14:45 | BI_ITS ---
EXAM: SCRN MAMM (CAD)W/ALEX BILAT DATE: 02/13/2025 CLINICAL HISTORY: F, Age 39 y/o , SCREEN TECHNIQUE: Procedure Code: [id number] Modality: MG Procedure: SCRN MAMM (CAD)W/ALEX BILAT COMPARISON: Prior exam(s) were compared. FINDINGS: TISSUE DENSITY: The breasts are heterogeneously dense, which may obscure small masses. Bilateral Breast Mammographic Findings: No suspicious masses, calcifications or other abnormalities are identified. BI/SCRN MAMM (CAD)W/ALEX BILAT IMPRESSION: No mammographic evidence of malignancy in either breast. OVERALL FINAL ASSESSMENT BI-RADS 1: NEGATIVE. RECOMMENDATION: Routine annual follow-up in 1 Year Additional Recommendation none A letter with findings and recommendations will be mailed to the patient. Reading Location: [id number]
== END 2025-02-13 23:59 | disposition home or self-care (01) ==
LOC: OPBI 14:42
PROVIDERS: PCP Internal Medicine; Referring Provider Nurse Practitioner Women's Health; Visit Provider Nurse Practitioner Women's Health
DX: Z12.31 Encounter for screening mammogram for malignant neoplasm of breast (principal); N89.8 Other specified noninflammatory disorders of vagina
CPT/HCPCS: 77063; 77067; 87070; 87086; 87088; 87205

== ENCOUNTER → 2025-02-13 | Outpatient (CLI) | payer MEDICAID, SELFPAY | END | disposition home or self-care (01) | LOC: LABSPEC 16:56 | PROVIDERS: PCP Internal Medicine; Referring Provider Advanced Practice Midwife; Visit Provider Advanced Practice Midwife | DX: N89.8 Other specified noninflammatory disorders of vagina (principal) | CPT/HCPCS: 87070; 87086; 87205 ==

== ENCOUNTER → 2025-02-18 | Outpatient (CLI) | payer MEDICAID, SELFPAY ==
--- OUTSIDE RECORDS SUMMARY | 2024-11-04 13:32 | XMS RPT_ITS ---
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 21, 2024 5:05:42 PM EST XR FOOT LEFT 3+ VIEWS (STANDARD) Observed: 06/21/2024 2:11 PM Status: F Source: [facility] Order Comment: Injury/Trauma or Illness?:Illness/Other How long have you had these symptoms (acute/chronic)?:Chronic Reason for exam?:PAIN History of cancer?:n Surgeries, chemotherapy, or radiation?:ORIF radius and ulna Type of Exam?:Initial Additional signs and symptoms?:NO plantar calcaneal enthesophy te appreciated. Minimal edema. No fractures dislocation or subluxation seen. Dictated by: WYATT ACE on MonJun 21, 2024 5:05:52 PM EST Transcribed by: WYATT ACE on MonJun 21, 2024 5:05:52 PM EST Finalized by: WYATT ACE on MonJun 21, 2024 5:05:52 PM EST ED PROV NOTE Observed: 06/16/2024 10:14 AM Status: COMPLETED Source: [facility] ED Physician Note: NAME: Austin Reynaga 39 y.o. CSN: [id number] PCP: Jose Alejandro London MD ED Course / Medical Decision [...] Resource Strain: High Risk (02/19/2020) Received from [facility] Overall Financial Resource Strain (CARDIA) Difficulty of Paying Living Expenses: Hard Food Insecurity: No Food Insecurity (02/19/2020) Received from [facility] Hunger Vital Sign Worried About Running Out of Food in the Last Year: Never true Ran Out of Food in the Last Year: Never true Transportation Needs: No Transportation Needs (02/19/2020) Received from [facility] PRAPARE - Transportation Lack of Transportation (Medical): No Lack of Transportation (Non-Medical): No Physical Activity: Insufficiently Active (01/27/2020) Received from [facility] Exercise Vital Sign Days of Exercise per Week: 2 days Minutes of Exercise per Session: 20 min Stress: No Stress Concern Present (01/27/2020) Received from [facility] [employer] - Occupational Stress Questionnaire Feeling of Stress : Only a little Social Connections: Moderately Isolated (01/27/2020) Received from [facility] Social Connection and Isolation Panel [NHANES] Frequency of Communication with Friends and Family: More than three times a week Frequency of Social Gatherings with Friends and Family: Twice a week Attends Mu-Is[employer] Services: Never Active Member of Clubs or Organizations: No Attends Club or Organization Meetings: Never Marital Status: Housing Stability: Low Risk (01/27/2020) Received from [facility] Housing Stability Vital Sign Unable to [...] 137 mcg by mouth once daily . methylPREDNISolone (MEDROL DOSEPACK) 4 mg tablet Follow package directions . mupirocin (BACTROBAN) 2 % ointment Apply topically 3 (three) times a day . ondansetron (ZOFRAN-ODT) 4 MG disintegrating tablet Dissolve 1 (one) tablet (4 mg total) on top of tongue every 8 (eight) hours as needed for nausea . orphenadrine (NORFLEX) 100 mg tablet Take 1 (one) tablet (100 mg total) by mouth 2 (two) times a day for 10 days . prochlorperazine (COMPAZINE) 10 MG tablet Take [...] 1 TABLET BY MOUTH TAKE WITH FOOD ALL: Allergies Allergen Reactions Escitalopram Headache and Unknown made her feel light headed and issues with focus. Sertraline Headache and Other (See Comments) Dizzy and headache Hydrocodone Unknown Irritable before bedtime, would take it during the day. Latex Nsaids (Non-Steroidal Anti-Inflammatory Drug) Unknown Penicillins Toradol [Ketorolac] Vicodin [Hydrocodone-Acetaminophen] Other (See Comments) Insomnia Dicyclomine GI Intolerance and Unknown Naproxen Other (See Comments) and Hives Allergy since a child Promethazine Unknown ROS: Review of Systems Constitutional: Negative. HENT: Negative. Respiratory: Negative. Cardiovascular: Negative. Gastrointestinal: Negative. Genitourinary: Negative. Musculoskeletal: Negative for arthralgias, back pain, gait problem, joint swelling and myalgias. Right foot pain and right leg pain Neurological: Negative. All other systems reviewed and are negative. Positives and pertinent negatives as per HPI. All other systems were reviewed and are negative. Physical Exam: Patient Vitals for the past 24 hrs: BP Temp Temp src Pulse Resp SpO2 Height Weight 06/16/24 1011 136/73 99.2 degrees F (37.3 degrees C) Temporal 95 16 100 % 5' 6 104.3 kg (230 lb) Physical Exam Vitals reviewed. Constitutional: General: She is not in acute distress. Appearance: She is not ill-appearing. HENT: Right Ear: External ear normal. Left Ear: External ear normal. Mouth/Throat: Mouth: Mucous membranes are moist. Cardiovascular: Rate and Rhythm: Normal rate and regular rhythm. Pulses: Normal pulses. Heart sounds: No murmur heard. No friction rub. No gallop. Musculoskeletal: Right upper leg: Normal. Right lower leg: Normal. Right ankle: Normal. Right foot: Normal range of motion and normal capillary refill. Tenderness present. No swelling, deformity, bunion, Charcot foot, foot drop, prominent metatarsal heads, laceration, bony tenderness or crepitus. Normal pulse. Comments: No deformity no swelling she is tender over the insole of the foot Pulmonary: Effort: Pulmonary effort is normal. No respiratory distress. Breath sounds: No stridor. No wheezing, rhonchi or rales. Chest: Chest wall: No tenderness. Skin: Findings: No erythema or rash. Neurological: Mental Status: She is alert. Sensory: No sensory deficit. Motor: No weakness. Laboratory & Radiological Imaging (if done): Labs Reviewed - No data to display No orders to display Procedures: Procedures . Adan Monroe MD ED Physician [facility] (Please note that portions of this note have been completed with a voice recognition software. Efforts were made to correct any errors, but occasionally words are mis-transcribed.) Adan Monroe MD 06/16/24 1019 AUTHENTICATED BY ADAN MONROE, ON 06/16/2024 10:19:49 XR SHOULDER LEFT 2+ VIEWS (STANDARD) Observed: 06/13/2024 2:54 PM Status: F Source: [facility] Order Comment: Injury/Trauma or Illness?:Injury/Trauma How long have you had these symptoms (acute/chronic)?:Acute Reason for exam?:L shoulder pain History of cancer?:n Surgeries, chemotherapy, or radiation?:ORIF radius and ulna Type of Exam?:Initial Mechanism of injury?:L shoulder and neck pain after moving heavy furniture 3 days ago EXAMINATION: XR SHOULDER LEFT 2+ VIEWS (STANDARD) [...] appear unremarkable. IMPRESSION: No acute osseous abnormality. IForem/trw Workstation ID: [id number] Dictated by: RAUL WESTON on MonJun 13, 2024 3:35:23 PM EST Transcribed by: OLY TINAJERO on MonJun 13, 2024 3:40:55 PM EST Finalized by: RAUL WESTON on MonJun 13, 2024 3:52:44 PM EST ED PROV NOTE Observed: 06/13/2024 2:47 PM Status: COMPLETED Source: [facility] ED PROVIDER NOTE [facility] EMERGENCY DEPARTMENT NAME: Austin Reynaga AGE: 39 y.o. : 1985 VISIT DATE: 06/13/2024 CSN: [id number] PCP: Jose Alejandro London MD Chief Complaint Patient presents with [...] Resource Strain: High Risk (02/19/2020) Received from [facility] Overall Financial Resource Strain (CARDIA) Difficulty of Paying Living Expenses: Hard Food Insecurity: No Food Insecurity (02/19/2020) Received from [facility] Hunger Vital Sign Worried About Running Out of Food in the Last Year: Never true Ran Out of Food in the Last Year: Never true Transportation Needs: No Transportation Needs (02/19/2020) Received from [facility] PRAPARE - Transportation Lack of Transportation (Medical): No Lack of Transportation (Non-Medical): No Physical Activity: Insufficiently Active (01/27/2020) Received from [facility] Exercise Vital Sign Days of Exercise per Week: 2 days Minutes of Exercise per Session: 20 min Stress: No Stress Concern Present (01/27/2020) Received from [facility] [employer] - Occupational Stress Questionnaire Feeling of Stress : Only a little Social Connections: Moderately Isolated (01/27/2020) Received from [facility] Social Connection and Isolation Panel [NHANES] Frequency of Communication with Friends and Family: More than three times a week Frequency of Social Gatherings with Friends and Family: Twice a week Attends Mu-Ism Services: Never Active Member of Clubs or Organizations: No Attends Club or Organization Meetings: Never Marital Status: Housing Stability: Low Risk (01/27/2020) Received from [facility] Housing Stability Vital Sign Unable to [...] MOUTH TAKE WITH FOOD Allergies Allergen Reactions Escitalopram Headache and Unknown made her feel light headed and issues with focus. Sertraline Headache and Other (See Comments) Dizzy and headache Hydrocodone Unknown Irritable before bedtime, would take it during the day. Latex Nsaids (Non-Steroidal Anti-Inflammatory Drug) Unknown Penicillins Toradol [Ketorolac] Vicodin [Hydrocodone-Acetaminophen] Other (See Comments) Insomnia Dicyclomine GI Intolerance and Unknown Naproxen Other (See Comments) and Hives Allergy since a child Promethazine Unknown Review of Systems All other systems reviewed and are negative. No data found. Physical Exam Vitals and nursing note reviewed. Exam conducted with a rrt present. Constitutional: General: She is in acute distress. Appearance: She is normal weight. HENT: Head: Normocephalic and atraumatic. Nose: Nose normal. Eyes: Extraocular Movements: Extraocular movements intact. Pupils: Pupils are equal, round, and reactive to light. Cardiovascular: Rate and Rhythm: Normal rate and regular rhythm. Musculoskeletal: Cervical back: Normal range of motion and neck supple. Comments: Left shoulder discomfort aggravated by abduction. Pulmonary: Effort: Pulmonary effort is normal. Breath sounds: Normal breath sounds. Neurological: Mental Status: She is alert. Laboratory & Radiographic Imaging (if done): No results found for this visit on 06/13/24. XR Shoulder Left 2+ Views (Standard) Final Result No acute osseous abnormality. [employer] Workstation ID: [id number] Procedures Medical Decision Making Differential diagnosis considered #1 shoulder bursitis #2 rotator cuff injury #3 shoulder fracture dislocation #4 shoulder tendinitis AC tendinitis #5 bicipital tendinitis Considering the above differential diagnosis following tests and treatments were considered in order with shared decision making Toradol shot and x-ray shoulder Amount and/or Complexity of Data Reviewed Radiology: ordered and independent interpretation performed. Details: X-ray reveals no fracture or dislocation . Clinical Impression: 1. Rotator cuff syndrome of left shoulder ED Disposition ED Disposition Discharge Condition Stable Comment Austin Reynaga discharged to home/self care in stable condition. Follow-up Information 1. Jose Alejandro London MD. Specialty: Internal Medicine Counts include 234 beds at the [facility] [id number] Contact information for after-discharge care Follow-up information has not been specified. New Prescriptions orphenadrine (NORFLEX) 100 mg tablet Take 1 (one) tablet (100 mg total) by mouth 2 (two) times a day for 10 days . methylPREDNISolone (MEDROL DOSEPACK) 4 mg tablet Follow package directions . Patti Cade MD 06/20/24 0900 AUTHENTICATED BY PATTI CADE, ON 06/20/2024 09:00:16 ED PROV NOTE Observed: 06/05/2024 5:39 PM Status: COMPLETED Source: [facility] ED PROVIDER NOTE [facility] EMERGENCY DEPARTMENT NAME: Austin Reynaga AGE: 39 y.o. : 1985 VISIT DATE: 06/05/2024 CSN: [id number] PCP: Jose Alejandro London MD Chief Complaint Patient presents with [...] Resource Strain: High Risk (02/19/2020) [facility] Overall Financial Resource Strain (CARDIA) Difficulty of Paying Living Expenses: Hard Food Insecurity: No Food Insecurity (02/19/2020) Received from [facility] Hunger Vital Sign Worried About Running Out of Food in the Last Year: Never true Ran Out of Food in the Last Year: Never true Transportation Needs: No Transportation Needs (02/19/2020) Received from [facility] PRAPARE - Transportation Lack of Transportation (Medical): No Lack of Transportation (Non-Medical): No Physical Activity: Insufficiently Active (01/27/2020) Received from [facility] Exercise Vital Sign Days of Exercise per Week: 2 days Minutes of Exercise per Session: 20 min Stress: No Stress Concern Present (01/27/2020) Received from [facility] [employer] - Occupational Stress Questionnaire Feeling of Stress : Only a little Social Connections: Moderately Isolated (01/27/2020) Received from [facility] Social Connection and Isolation Panel [NHANES] Frequency of Communication with Friends and Family: More than three times a week Frequency of Social Gatherings with Friends and Family: Twice a week Attends Mu-Ism Services: Never Active Member of Clubs or Organizations: No Attends Club or Organization Meetings: Never Marital Status: Housing Stability: Low Risk (01/27/2020) Received from [facility] Housing Stability Vital Sign Unable to [...] the day. Latex Penicillins Toradol [Ketorolac] Vicodin [Hydrocodone-Acetaminophen] Other (See Comments) Insomnia Dicyclomine GI Intolerance and Unknown Naproxen Other (See Comments) and Hives Allergy since a child Promethazine Unknown Review of Systems Constitutional: Negative for chills and fever. HENT: Positive for sinus pressure and sinus pain. Eyes: Negative for pain. Respiratory: Negative for cough, chest tightness and shortness of breath. Cardiovascular: Negative for chest pain and palpitations. Gastrointestinal: Negative for abdominal pain, nausea and vomiting. Genitourinary: Negative for flank pain. Musculoskeletal: Negative for arthralgias and myalgias. Leg pain Skin: Negative for rash. Neurological: Positive for headaches. Negative for dizziness, syncope and light-headedness. Psychiatric/Behavioral: Negative for agitation. All other systems reviewed and are negative. Patient Vitals for the past 24 hrs: BP Temp Temp src Pulse Resp SpO2 Height Weight 06/05/24 1800 (!) 141/92 -- -- 84 18 99 % -- -- 06/05/24 1748 -- -- -- -- 18 -- -- -- 06/05/24 1729 (!) 143/95 98.6 degrees F (37 degrees C) Oral 98 18 100 % 5' 6 108.9 kg (240 lb) Physical Exam Vitals and nursing note reviewed. Constitutional: Appearance: Normal appearance. HENT: Head: Normocephalic. Nose: Congestion and rhinorrhea present. Comments: Frontal and maxillary sinuses are tender to palpation Eyes: Pupils: Pupils are equal, round, and reactive to light. Cardiovascular: Rate and Rhythm: Normal rate and regular rhythm. Pulses: Normal pulses. Heart sounds: Normal heart sounds. Musculoskeletal: Cervical back: Normal range of motion. Comments: Right thigh has generalized tenderness posteriorly with no evidence of erythema warmth or cellulitis. Equal sensation motor function the bilateral lower extremities are equal pulses bilaterally. Pulmonary: Effort: Pulmonary effort is normal. No respiratory distress. Breath sounds: Normal breath sounds. No wheezing or rales. Abdominal: General: Abdomen is flat. There is no distension. Tenderness: There is no abdominal tenderness. There is no guarding. Skin: General: Skin is warm. Capillary Refill: Capillary refill takes less than 2 seconds. Neurological: General: No focal deficit present. Mental Status: She is alert and oriented to person, place, and time. Cranial Nerves: No cranial nerve deficit. Sensory: No sensory deficit. Motor: No weakness. Coordination: Coordination normal. Gait: Gait normal. Psychiatric: Mood and Affect: Mood normal. Laboratory & Radiographic Imaging (if done): No results found for this visit on 06/05/24. No orders to display Procedures Medical Decision Making Patient was seen and evaluated for concern of right thigh pain with known history of DVT. Patient does not have any clinical symptoms of pulmonary embolism and therefore PE study was not done at this time. Patient was given Percocet for her leg pain. Patient was given IV fluids and Benadryl for her headache which decreased her headache. Patient had a nonfocal neurological exam and therefore CT imaging was not indicated. Patient was educated on reasons return to ED for repeat evaluation it was educated on signs and symptoms of pulmonary embolism and agrees to read presents to the emergency department she developed signs and symptoms of pulmonary embolism. Patient agrees assessment and plan was discharged in stable condition. . Clinical Impression: 1. Pain of right lower extremity 2. DVT (deep venous thrombosis) (HCC) 3. Headache ED Disposition ED Disposition Discharge Condition Stable Comment Austin Reynaga discharged to home/self care in stable condition. Follow-up Information 1. Jose Alejandro London MD. Specialty: Internal Medicine Why: As needed, If symptoms worsen [id number] [facility] [id number] 2. [facility], Neuroscience. Specialty: Neurology Why: As needed, If symptoms worsen [address] [facility] Medical Office Building, [address] Floor [facility] [id number] Contact information for after-discharge care Follow-up information has not been specified. New Prescriptions oxyCODONE-acetaminophen (PERCOCET) 5-325 mg per tablet Take 1 (one) tablet by mouth every 6 (six) hours as needed for pain . Ulices Pearson, DO 06/05/24 1821 Ulices Pearson, DO 06/05/24 1904 AUTHENTICATED BY ULICES PEARSON, ON 06/05/2024 19:04:26 ED PROV NOTE Observed: 05/28/2024 6:05 PM Status: COMPLETED Source: [facility] ED PROVIDER NOTE [facility] EMERGENCY DEPARTMENT NAME: Austin Reynaga AGE: 39 y.o. : 1985 VISIT DATE: 05/28/2024 CSN: [id number] PCP: Jose Alejandro London MD Chief Complaint Patient presents with [...] Resource Strain: High Risk (02/19/2020) Received from [facility] Overall Financial Resource Strain (CARDIA) Difficulty of Paying Living Expenses: Hard Food Insecurity: No Food Insecurity (02/19/2020) Received from [facility] Hunger Vital Sign Worried About Running Out of Food in the Last Year: Never true Ran Out of Food in the Last Year: Never true Transportation Needs: No Transportation Needs (02/19/2020) Received from [facility] PRAPARE - Transportation Lack of Transportation (Medical): No Lack of Transportation (Non-Medical): No Physical Activity: Insufficiently Active (01/27/2020) Received from [facility] Exercise Vital Sign Days of Exercise per Week: 2 days Minutes of Exercise per Session: 20 min Stress: No Stress Concern Present (01/27/2020) Received from [facility] [employer] - Occupational Stress Questionnaire Feeling of Stress : Only a little Social Connections: Moderately Isolated (01/27/2020) Received from [facility] Social Connection and Isolation Panel [NHANES] Frequency of Communication with Friends and Family: More than three times a week Frequency of Social Gatherings with Friends and Family: Twice a week Attends Mu-Ism Services: Never Active Member of Clubs or Organizations: No Attends Club or Organization Meetings: Never Marital Status: Housing Stability: Low Risk (01/27/2020) Received from [facility] Housing Stability Vital Sign Unable to [...] the day. Latex Penicillins Toradol [Ketorolac] Vicodin [Hydrocodone-Acetaminophen] Other (See Comments) Insomnia Dicyclomine GI Intolerance and Unknown Naproxen Other (See Comments) and Hives Allergy since a child Promethazine Unknown Review of Systems Respiratory: Positive for cough. Gastrointestinal: Positive for abdominal pain. Patient Vitals for the past 24 hrs: BP Temp Temp src Pulse Resp SpO2 Height Weight 05/28/24 1752 (!) 128/90 99.3 degrees F (37.4 degrees C) Temporal (!) 100 16 100 % 5' 6 59 kg (130 lb) Physical Exam Vitals and nursing note reviewed. Constitutional: Appearance: Normal appearance. HENT: Head: Normocephalic and atraumatic. Nose: Nose normal. Eyes: Extraocular Movements: Extraocular movements intact. Pupils: Pupils are equal, round, and reactive to light. Cardiovascular: Rate and Rhythm: Normal rate and regular rhythm. Musculoskeletal: General: Normal range of motion. Cervical back: Normal range of motion and neck supple. Pulmonary: Effort: Pulmonary effort is normal. Breath sounds: Normal breath sounds. Abdominal: General: Abdomen is flat. There is no distension. There are no signs of injury. Tenderness: There is abdominal tenderness in the epigastric area. There is no rebound. Skin: General: Skin is warm and dry. Neurological: General: No focal deficit present. Mental Status: She is alert and oriented to person, place, and time. Psychiatric: Mood and Affect: Mood normal. Behavior: Behavior normal. Laboratory & Radiographic Imaging (if done): No results found for this visit on 05/28/24. No orders to display Procedures Medical Decision Making Patient looks well otherwise. I think she probably has a sinus infection. Rx for Zithromax Z-Haja. I also recommend she take Pepcid OTC. . Clinical Impression: No diagnosis found. ED Disposition None Follow-up Information Follow-up information has not been specified. Contact information for after-discharge care Follow-up information has not been specified. Emeka Corcoran DO 05/28/24 1808 AUTHENTICATED BY EMEKA CORCORAN, ON 05/28/2024 18:08:28 ED PROV NOTE Observed: 05/09/2024 12:38 PM Status: COMPLETED Source: [facility] HPI: 05/09/2024, Time: @LIZZ@ Austin Reynaga is a 39 y.o. female presenting to [...] are negative. PAST HISTORY Past Medical History: @[facility]@ Past Surgical History: has a past surgical [...] Allergies: Hydrocodone, Latex, Penicillins, Toradol [ketorolac], Vicodin [hydrocodone-acetaminophen], Dicyclomine, Naproxen, and Promethazine RESULTS All laboratory and radiology results have been [...] Interpreted by Radiologist. No orders to display NURSING NOTES AND VITALS REVIEWED The nursing notes within the ED encounter and vital signs as below have been reviewed. BP 120/68 Pulse (!) 109 Temp 98.1 degrees F (36.7 degrees C) (Oral) Resp 18 Ht 5' 6 Wt 110.7 kg (244 lb) LMP 02/04/2022 (Approximate) SpO2 100% BMI 39.38 kg/m Oxygen Saturation Interpretation: Normal PHYSICAL EXAM Constitutional/General: Alert and oriented x3, well [...] palpate Neurologic: GCS 15, Psych: Normal Affect ED COURSE/MEDICAL DECISION MAKING Medications - No data to display Medical Decision Making: Will treat ovarian cyst pain with [place], patient unable to take NSAIDs because she is on Plavix, will treat for folliculitis with Bactroban ointment as well as betamethasone cream, no evidence of cellulitis or abscess at this time Counseling: The emergency provider has spoken with the patient and discussed today's results, in addition to providing specific details for the plan of care and counseling regarding the diagnosis and prognosis. Questions are answered at this time and they are agreeable with the plan. IMPRESSION AND DISPOSITION IMPRESSION 1. Folliculitis 2. Right ovarian cyst DISPOSITION Disposition: discharged to home Patient condition is stable Summation Patient Course: Stable ED Medications administered this visit: Medications - No data to display New Prescriptions from this visit: New Prescriptions mupirocin (BACTROBAN) 2 % ointment Apply topically 3 (three) times a day . betamethasone valerate (VALISONE) 0.1 % cream Apply topically 2 (two) times a day . oxyCODONE-acetaminophen (PERCOCET) 5-325 mg per tablet Take 1 (one) tablet by mouth every 6 (six) hours as needed for pain (Days supply per fill: 5) . Follow-up: Jose Alejandro London MD [id number] [facility] [address] [facility] [phone] In 3 days Final Impression: 1. Folliculitis 2. Right ovarian cyst (Please note that portions of this note were completed with a voice recognition program. Efforts were made to edit the dictations but occasionally words are mis-transcribed.) Libertad Foster MD 05/09/24 1240 AUTHENTICATED BY LIBERTAD FOSTER, ON 05/09/2024 12:40:42 ED PROV NOTE Observed: 04/15/2024 3:20 PM Status: COMPLETED Source: [facility] ED PROVIDER NOTE [facility] EMERGENCY DEPARTMENT NAME: Austin Reynaga AGE: 38 y.o. : 1985 VISIT DATE: 04/15/2024 CSN: [id number] PCP: Jose Alejandro London MD Chief Complaint Patient presents with [...] Resource Strain: High Risk (02/19/2020) Received from [facility] Overall Financial Resource Strain (CARDIA) Difficulty of Paying Living Expenses: Hard Food Insecurity: No Food Insecurity (02/19/2020) Received from [facility] Hunger Vital Sign Worried About Running Out of Food in the Last Year: Never true Ran Out of Food in the Last Year: Never true Transportation Needs: No Transportation Needs (02/19/2020) Received from [facility] PRAPARE - Transportation Lack of Transportation (Medical): No Lack of Transportation (Non-Medical): No Physical Activity: Insufficiently Active (01/27/2020) Received from [facility] Exercise Vital Sign Days of Exercise per Week: 2 days Minutes of Exercise per Session: 20 min Stress: No Stress Concern Present (01/27/2020) Received from [facility] [place]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 effort is normal. Breath sounds: Normal breath sounds. Abdominal: General: Abdomen is flat. Bowel sounds are normal. Palpations: Abdomen is soft. Neurological: General: No focal deficit present. Mental Status: She is alert and oriented to person, place, and time. Mental status is at baseline. Psychiatric: Mood and Affect: Mood normal. Thought Content: Thought content normal. Laboratory & Radiographic Imaging (if done): No results found for this visit on 03/11/24. No orders to display Procedures Medical Decision Making Patient presents ER for evaluation of hematochezia, on arrival her vitals are stable, she is in no acute distress, differentials include but not limited to hemorrhoids, fissures, AVM, mesenteric ischemia, colitis, diverticulitis. Labs and imaging pursued. Labs demonstrated patient have no significant leukocytosis or electrolyte abnormality, no signs of severe anemia, CT with no emergent pathology identified, rectal exam noted to have no hemorrhoids or fissures. He has established follow-up in the a.m. 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 . . Clinical Impression: No diagnosis found. ED Disposition None Follow-up Information Follow-up information has not been specified. Contact information for after-discharge care Follow-up information has not been specified. Teri Mo MD 03/11/24 1221 AUTHENTICATED BY TERI MO, ON 03/11/2024 12:21:37 ED PROV NOTE Observed: 03/07/2024 9:24 AM Status: COMPLETED Source: [facility] HPI: 03/07/2024, Time: @LIZZ@ Autsin Desai Ronnell is a 38 y.o. female [...] are negative. PAST HISTORY Past Medical History: @[facility]@ Past Surgical History: has a past surgical [...] Allergies: Hydrocodone, Latex, Penicillins, Toradol [ketorolac], Vicodin [hydrocodone-acetaminophen], Dicyclomine, Naproxen, and Promethazine RESULTS All laboratory and radiology results have been [...] Interpreted by Radiologist. No orders to display NURSING NOTES AND VITALS REVIEWED The nursing notes within the ED encounter and vital signs as below have been reviewed. BP 131/88 (BP Location: Left arm, Patient Position: Sitting) Pulse 99 Temp 98.2 degrees F (36.8 degrees C) (Oral) Resp 18 Ht 5' 6 Wt 104.3 kg (230 lb) LMP 02/04/2022 (Approximate) SpO2 98% BMI 37.12 kg/m Oxygen Saturation Interpretation: Normal PHYSICAL EXAM Constitutional/General: Alert and oriented x3, well [...] x 4. Warm and well perfused, left wrist: Moderate tenderness to palpation over the radial aspect of the forearm and wrist with slight swelling but no obvious deformity and neurovasc intact Skin: warm and dry without rash Neurologic: GCS 15, Psych: Normal Affect ED COURSE/MEDICAL DECISION MAKING Medications - No data to display Medical Decision Making: Will place patient in Velcro splint and give 2 days of Ultram, patient allergic to NSAIDs and also on NSAID Counseling: The emergency provider has spoken with the patient and discussed today's results, in addition to providing specific details for the plan of care and counseling regarding the diagnosis and prognosis. Questions are answered at this time and they are agreeable with the plan. IMPRESSION AND DISPOSITION IMPRESSION 1. Sprain of left wrist, initial encounter DISPOSITION Disposition: discharged to home Patient condition is stable Summation Patient Course: Stable ED Medications administered this visit: Medications - No data to display New Prescriptions from this visit: New Prescriptions traMADol (ULTRAM) 50 mg tablet Take 1 (one) tablet (50 mg total) by mouth every 8 (eight) hours as needed for pain . Follow-up: Jose Alejandro London MD [address] [facility] [id number] In 1 week Final Impression: 1. Sprain of left wrist, initial encounter (Please note that portions of this note were completed with a voice recognition program. Efforts were made to edit the dictations but occasionally words are mis-transcribed.) Libertad Foster MD 03/07/24 0926 AUTHENTICATED BY LIBERTAD FOSTER, ON 03/07/2024 09:26:29 ED PROV NOTE Observed: 03/04/2024 12:28 PM Status: COMPLETED Source: [facility] ED Physician Note: NAME: Austin Reynaga 38 y.o. CSN: [id number] PCP: Jose Alejandro London MD ED Course / Medical Decision Making: Patient comes in mainly for left wrist forearm and hand pain from a fall. Imaging was negative for fracture or dislocation. Patient given an Chago wrap. She also had varicosities right lower [...] Resource Strain: High Risk (02/19/2020) Received from [facility] Overall Financial Resource Strain (CARDIA) Difficulty of Paying Living Expenses: Hard Food Insecurity: No Food Insecurity (02/19/2020) Received from [facility] Hunger Vital Sign Worried About Running Out of Food in the Last Year: Never true Ran Out of Food in the Last Year: Never true Transportation Needs: No Transportation Needs (02/19/2020) Received from [facility] PRAPARE - Transportation Lack of Transportation (Medical): No Lack of Transportation (Non-Medical): No Physical Activity: Insufficiently Active (01/27/2020) Received from [facility] Exercise Vital Sign Days of Exercise per Week: 2 days Minutes of Exercise per Session: 20 min Stress: No Stress Concern Present (01/27/2020) Received from [facility] [place] [employer] - Occupational Stress Questionnaire Feeling of Stress : Only a little Social Connections: Moderately Isolated (01/27/2020) Received from [facility] Social Connection and Isolation Panel [NHANES] Frequency of Communication with Friends and Family: More than three times a week Frequency of Social Gatherings with Friends and Family: Twice a week Attends Mu-Ism Services: Never Active Member of Clubs or Organizations: No Attends Club or Organization Meetings: Never Marital Status: Housing Stability: Low Risk (01/27/2020) [facility] Housing Stability Vital Sign Unable to Pay [...] 1 TABLET BY MOUTH TAKE WITH FOOD ALL: Allergies Allergen Reactions Hydrocodone Unknown Irritable before bedtime, would take it during the day. Latex Penicillins Toradol [Ketorolac] Vicodin [Hydrocodone-Acetaminophen] Other (See Comments) Insomnia Dicyclomine GI Intolerance and Unknown Naproxen Other (See Comments) and Hives Allergy since a child Promethazine Unknown ROS: Review of Systems Constitutional: Negative. HENT: Negative. Eyes: Negative. Respiratory: Negative. Cardiovascular: Negative. Gastrointestinal: Negative. Genitourinary: Negative. Musculoskeletal: Negative for back pain, gait problem, joint swelling, myalgias, neck pain and neck stiffness. Left wrist forearm and hand pain Skin: Negative for color change, pallor, rash and wound. Neurological: Negative for weakness and numbness. All other systems reviewed and are negative. Positives and pertinent negatives as per HPI. All other systems were reviewed and are negative. Physical Exam: Patient Vitals for the past 24 hrs: BP Temp Temp src Pulse Resp SpO2 Height Weight 03/04/24 1230 (!) 143/83 -- -- -- 18 -- -- -- 03/04/24 1222 (!) 150/103 98.4 degrees F (36.9 degrees C) Oral 99 18 100 % 5' 6 104.3 kg (230 lb) Physical Exam Vitals and nursing note reviewed. Constitutional: Appearance: Normal appearance. Cardiovascular: Pulses: Normal pulses. Musculoskeletal: Left elbow: Normal. Left forearm: Tenderness and bony tenderness present. No swelling, edema, deformity or lacerations. Left wrist: Tenderness and bony tenderness present. No swelling, deformity, effusion, lacerations, snuff box tenderness or crepitus. Decreased range of motion. Normal pulse. Left hand: Tenderness and bony tenderness present. No swelling, deformity or lacerations. Normal range of motion. Normal strength. Normal sensation. There is no disruption of two-point discrimination. Normal capillary refill. Normal pulse. Right lower leg: Swelling and tenderness present. No deformity, lacerations or bony tenderness. No edema. Comments: Left lower leg is slightly swollen with varicosities. Good pedal pulse Skin: Findings: No rash. Neurological: Mental Status: She is alert. Laboratory & Radiological Imaging (if done): Labs Reviewed - No data to display XR Forearm Left 2 Views Preliminary Result No acute osseous abnormality. Healed radius and ulnar shaft fractures with intact fixation hardware. [facility] Workstation ID: [id number] XR Hand Left 3+ Views (Standard) Non-public Result No acute osseous abnormality. Workstation ID: [id number] XR Wrist Left 3+ Views (Standard) Preliminary Result No acute osseous abnormality. [facility] Workstation ID: [id number] Procedures: Procedures . Adan Monroe MD ED Physician [facility] (Please note that portions of this note have been completed with a voice recognition software. Efforts were made to correct any errors, but occasionally words are mis-transcribed.) Adan Monroe MD 03/04/24 1323 AUTHENTICATED BY ADAN MONROE, ON 03/04/2024 13:23:03 XR WRIST LEFT 3+ VIEWS (STANDARD) Observed: 03/04/2024 12:28 PM Status: F Source: [facility] Order Comment: Injury/Trauma or Illness?:Injury/Trauma How long have you had these symptoms (acute/chronic)?:Acute Reason for exam?:wrist pain History of cancer?:n Surgeries, chemotherapy, or radiation?:ORIF radius and ulna Type of Exam?:Initial Mechanism of injury?:Fell and hit trampoline yesterday EXAMINATION: XR WRIST LEFT 3+ VIEWS (STANDARD) [...] normal limits. IMPRESSION: No acute osseous abnormality. [facility] Workstation ID: [id number] Dictated by: JOHANNA MARCH on MonMar 04, 2024 1:13:20 PM EDT Transcribed by: FLO MOSS on MonMar 04, 2024 1:17:08 PM EDT Finalized by: JOHANNA MARCH on MonMar 04, 2024 10:27:17 PM EDT XR HAND LEFT 3+ VIEWS (STANDARD) Observed: 03/04/2024 12:28 PM Status: F Source: [facility] Order Comment: Injury/Trauma or Illness?:Injury/Trauma How long have you had these symptoms (acute/chronic)?:Acute Reason for exam?:L hand pain History of cancer?:n Surgeries, chemotherapy, or radiation?:ORIF radius and ulna Type of Exam?:Initial Mechanism of injury?:Fell and hit trampoline yesterday EXAMINATION: XR HAND LEFT 3+ VIEWS (STANDARD) [...] normal limits. IMPRESSION: No acute osseous abnormality. [employer] Workstation ID: [id number] Dictated by: JOHANNA MARCH on MonMar 04, 2024 1:16:35 PM EDT Transcribed by: FLO MOSS on MonMar 04, 2024 1:21:46 PM EDT Finalized by: JOHANNA MARCH on MonMar 04, 2024 10:23:57 PM EDT XR FOREARM LEFT 2 VIEWS Observed: 2023 12:28 PM Status: F Source: [facility] Order Comment: Injury/Trauma or Illness?:Injury/Trauma How long have you had these symptoms (acute/chronic)?:Acute Reason for exam?:forearm pain History of cancer?:n Surgeries, chemotherapy, or radiation?:ORIF radius and ulna Type of Exam?:Initial Mechanism of injury?:Fell and hit trampoline yesterday EXAMINATION: XR FOREARM LEFT 2 VIEWS HISTORY: [...] ulnar shaft fractures with intact fixation hardware. [facility] Workstation ID: [id number] Dictated by: JOHANNA MARCH on MonMar 04, 2024 1:11:34 PM EDT Transcribed by: FLO MOSS on MonMar 04, 2024 1:13:46 PM EDT Finalized by: JOHANNA MARCH on MonMar 04, 2024 10:23:51 PM EDT ED PROV NOTE Observed: 02/23/2024 6:30 PM Status: COMPLETED Source: [facility] EMERGENCY DEPARTMENT ATTENDING NOTE: NAME: Austin Reynaga CSN: [id number] 38 y.o. PCP: Jose Alejandro London MD History: Chief Complaint: Pain HPI: The history was obtained from the patient. Austin is a 38 y.o. 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 After reviewing the items above, I did look at previous medical documentation, such as recent hospitalizations, office visits, and/or recent consultations with PCP/specialist. SDOH: Another factor that I considered in Austin's care was her Social Determinants of Health [...] Behavior normal. Procedures I did personally review Austin's past medical history, surgical history, social history, [...] Disposition ED Disposition Discharge Condition Stable Comment Austin Reynaga discharged to home/self care in stable condition. [...] Resource Strain: High Risk (02/19/2020) Received from [facility] Overall Financial Resource Strain (CARDIA) Difficulty of Paying Living Expenses: Hard Food Insecurity: No Food Insecurity (02/19/2020) Received from [facility] Hunger Vital Sign Worried About Running Out of Food in the Last Year: Never true Ran Out of Food in the Last Year: Never true Transportation Needs: No Transportation Needs (02/19/2020) Received from [facility] PRAPARE - Transportation Lack of Transportation (Medical): No Lack of Transportation (Non-Medical): No Physical Activity: Insufficiently Active (01/27/2020) Received from [facility] Exercise Vital Sign Days of Exercise per Week: 2 days Minutes of Exercise per Session: 20 min Stress: No Stress Concern Present (01/27/2020) Received from [facility] [employer] of Occupational Health - Occupational Stress Questionnaire Feeling of Stress : Only a little Social Connections: Moderately Isolated (01/27/2020) Received from [facility] Social Connection and Isolation Panel [NHANES] Frequency of Communication with Friends and Family: More than three times a week Frequency of Social Gatherings with Friends and Family: Twice a week Attends Mu-Ism Services: Never Active Member of Clubs or Organizations: No Attends Club or Organization Meetings: Never Marital Status: Housing Stability: Low Risk (01/27/2020) Received from [facility] Housing Stability Vital Sign Unable to [...] 1 TABLET BY MOUTH TAKE WITH FOOD ALL: Allergies Allergen Reactions Hydrocodone Unknown Irritable before bedtime, would take it during the day. Latex Penicillins Toradol [Ketorolac] Vicodin [Hydrocodone-Acetaminophen] Other (See Comments) Insomnia Dicyclomine GI Intolerance and Unknown Naproxen Other (See Comments) and Hives Allergy since a child Promethazine Unknown Ebenezer Maldonado MD ED Attending Physician [facility] EMERGENCY DEPARTMENT Ebenezer Maldonado MD 02/23/24 1836 AUTHENTICATED BY EBENEZER MALDONADO, ON 02/23/2024 18:36:02 ALLERGIES DATE TYPE / CODE NAME / CODE REACTION SEVERITY SOURCE 05/29/2024 Drug Class/352912510 (SNOMED CT) NSAIDS (NON-STEROIDAL ANTI-INFLAMMATORY DRUG) Unknown [facility] 02/24/2022 DRUG/451820221( SNOMED CT) HYDROCODONE-ACETAMINOPH EN Other [facility] 03/15/2021 DRUG INGREDI/2167283 03(SNOMED CT) HYDROCODONE Unknown [facility] 03/02/2021 DRUG INGREDI/4842065 03(SNOMED CT) LATEX [facility] 03/02/2021 Drug Class/880119539 (SNOMED CT) PENICILLINS [facility] 03/02/2021 DRUG INGREDI/7684129 03(SNOMED CT) KETOROLAC [facility] 12/27/2017 DRUG INGREDI/3521076 03(SNOMED CT) PROMETHAZINE Unknown [facility] 11/09/2016 DRUG INGREDI/3144117 03(SNOMED CT) NAPROXEN Other [facility] 02/25/2016 DRUG INGREDI/8861566 03(SNOMED CT) ESCITALOPRAM Headache [facility] 02/25/2016 DRUG INGREDI/9878533 03(SNOMED CT) SERTRALINE Headache [facility] 05/27/2015 DRUG INGREDI/1387273 03(SNOMED CT) DICYCLOMINE GI Intol [facility] ENCOUNTERS ADMIT/DISCHARGE ACCOUNT NUMBER ADMITTING ENCOUNTER CLASS LOCATION SOURCE 11/04/2024/11/05/19 [id number] Emergency Building:AED Room: UZB49Ygn: 01 [facility] 10/04/2024/10/05/19 [id number] Emergency Building:AED Room: [id number]: 03 [facility] 08/20/2024/08/21/19 25 [id number] Emergency Building:AED Room: QTV76Wmb: 06 [facility] 06/21/2024/06/25/19 25 [id number] [facility] Ambulatory Building:POD AMBRPKDG [facility] 06/21/2024/06/25/19 25 [id number] WYATT ACE JR[facility] Ambulatory Building:POD AMBRPKDG [facility] 06/21/2024/06/21/19 25 [id number] Ambulatory Building:[address]G [address] [facility] 06/16/2024/06/16/19 [id number] Emergency Building:AED Room: SQQ04Pug: 04 [facility] 06/13/2024/06/13/19 25 [id number] Emergency Building:AED Room: MQD80Fjy: 06 [facility] 06/05/2024/06/05/19 25 [id number] Emergency Building:AED Room: SMF24Wjr: 03 [facility] 05/28/2024/05/28/19 25 [id number] Emergency Building:AED Room: VAM18Ynr: 01 [facility] 05/09/2024/05/09/20 24 [id number] Emergency Building:AED Room: XMU42Wkj: 06 [facility] 04/15/2024/04/15/20 24 [id number] Emergency Building:AED Room: KVN35Ifk: 03 [facility] 04/01/2024/04/01/20 24 [id number] Emergency Building:AED Room: UHV99Hss: 04 [facility] 03/17/2024/03/17/20 24 [id number] Emergency Building:AED Room: AIQ60Epg: 02 [facility] 03/11/2024/03/11/20 24 [id number] Emergency Building:AED Room: HYD40Qet: 04 [facility] 03/07/2024/03/07/20 24 [id number] Emergency Building:AED Room: QTA75Vxx: 05 [facility] 03/04/2024/03/04/20 24 [id number] Emergency Building:AED Room: UDF85Cam: 05 [facility] 02/23/2024/10/04 24 [id number] Emergency Building:AED Room: KPL66Qvw: 02 [facility] PAYERS ENCOUNTER GUARANTOR PAYER SUBSCRIBER SOURCE 11/04/2024 AUSTIN Desai SEATONDOB: [address] [address]Rdq: (HP) Primary Insurance:[facility] [employer] MEDICAIDPolicy Number: [id number] Date:[id number] [address]BF: A[place]IN Desai SEATONDOB: [id number] [place], [place] [address]Lfu: (HP) [facility] 10/04/2024 A[place]IN Desai SEATONDOB: [address] [address]Wxg: (HP) Primary [facility] MEDICAIDPolicy Number: [id number] Date:[id number] [address]IB: [place]IN Desai SEATONDOB: [id number] [place], [place] [address]Sku: (HP) [facility] 08/20/2024 A[place]IN Desai SEATONDOB: [address] [address]Yzy: ~(33 0 (HP) Primary Insurance:[facility] [employer] MEDICAIDPolicy Number: [id number] Date:[id number] [address]LD: [place]IN Desai SEATONDOB: [id number] [place], [place] [address]Owg: (HP) [facility] 06/21/2024 [place]IN Desai SEATONDOB: [address] [address]Ebd: ~(33 0 (HP) Primary Insurance[facility] MEDICAIDPolicy Number: [id number] Date:[id number] [address] [address]TK: [place]IN Desai SEATONDOB: [id number] [place] [place], [place] [address]Ccr: (HP) [facility] 06/21/2024 [place]IN Desai SEATONDOB: [address] [address]Ttt: ~(33 0 (HP) Primary Insurance:[facility] MEDICAIDPolicy Number: [id number] Date:1168-99-05WQ [address] [address]TV: [place]IN Desai SEATONDOB: [id number] [place], [place] [address]Frg: (HP) [facility] 06/21/2024 A[place]IN Desai SEATONDOB: [address] [address]Ase: ~(33 0 (HP) Primary Insurance:[facility] MEDICAIDPolicy Number: [id number] Date:[id number] [address] [address]MS: AUSTIN Desai SEATONDOB: [id number] [place], [place] [address]Dtc: (HP) [facility] 06/16/2024 AUSTIN Desai SEATONDOB: [address] [address]Tqk: ~(33 0 (HP) [facility] MEDICAIDPolicy Number: [id number] Date:0531-19-01SJ [address] [address]PN: AUSTIN Desai SEATONDOB: [id number] [place]ELISSA [place] [id number]: (HP) [facility] 06/13/2024 AUSTIN Desai SEATONDOB: [address] [address]Aap: ~(33 0 (HP) Primary [facility] [place] [facility] MEDICAIDPolicy Number: [id number] Date:6008-88-86AW [address] [address]ZH: AUSTIN Desai SEATONDOB: [id number] [place], [place] [address]Jlj: (HP) [facility] 06/05/2024 AUSTIN Desai SEATONDOB: [address] [address]Acy: ~(33 0 (HP) Primary [facility] MEDICAIDPolicy Number: [id number] Date:5056-34-12GT [address] [address]PA: AUSTIN Desai SEATONDOB: [id number] [place], [place] [address]Ytd: (HP) [facility] 05/28/2024 AUSTIN Desai SEATONDOB: [address] [address]Bap: ~(33 0 (HP) [facility] MEDICAIDPolicy Number: [id number] Date:2527-75-45QG [address] [address]YS: AUSTIN Desai SEATONDOB: [id number] [place], [place] [address]Sov: (HP) [facility] 05/09/2024 AUSTIN Desai SEATONDOB: [address] [address]Wus: ~(33 0 (HP) Primary Insurance:[employer] MEDICAIDPolicy Number: [id number] Date:8324-80-53BD [address] [place] [address]PO: AUSTIN Desai SEATONDOB: [id number] [place], [place] [address]Quu: (HP) [facility] 04/15/2024 AUSTIN Desai SEATONDOB: [address] [address]Rtx: ~(33 0 (HP) [facility] MEDICAIDPolicy Number: [id number] Date:3079-63-32AM [address] [place] [address]AI: AUSTIN Desai SEATONDOB: [id number] [place], [place] [address]Isy: (HP) [facility] 04/01/2024 AUSTIN Desai SEATONDOB: [address] [address]Jzu: ~(33 0 (HP) Primary Insurance:[facility] [place] [facility] MEDICAIDPolicy Number: [id number] Date:9034-06-79VK [address] [address]PY: AUSTIN Desai SEATONDOB: [id number] [place], [place] [address]Bkn: (HP) [facility] 03/17/2024 AUSTIN Desai SEATONDOB: [address] [address]Hqv: ~(33 0 (HP) Primary Insurance:[employer] MEDICAIDPolicy Number: [id number] Date:0507-98-22FS [address] [place] [address]ZS: AUSTIN Desai SEATONDOB: [id number] [place], [place] [address]Cbz: (HP) [facility] 03/11/2024 AUSTIN Desai SEATONDOB: [address] [address]Qna: ~(33 0 (HP) [facility] MEDICAIDPolicy Number: [id number] Date:7815-23-40ZV [address] [address]RO: AUSTIN Desai SEATONDOB: [id number] [place], [place] [address]Fwk: (HP) [facility] 03/07/2024 AUSTIN Desai SEATONDOB: [address] [address]Ewp: ~(33 0 (HP) [facility] MEDICAIDPolicy Number: [id number] Date:9402-88-52WP[address] [address]IR: AUSTIN Desai SEATONDOB: [id number] [place], [place] [address]Pbm: (HP) [facility] 03/04/2024 AUSTIN Desai SEATONDOB: [address] [address]Iji: ~(33 0 (HP) Primary Insurance:[facility] MEDICAIDPolicy Number: [id number] Date:3962-41-53FE[address] [address]EX: AUSTIN Desai SEATONDOB: [id number] [place], [place] [address]Sad: (HP) [facility] 02/23/2024 AUSTIN Desai SEATONDOB: [address] [address]Pyb: ~(33 0 (HP) Primary Insurance:[employer] MEDICAIDPolicy Number: [id number] Date:8688-03-91IJ [address], [place] [address]IC: AUSTIN Desai SEATONDOB: [id number] [place] [place], [place] [address]Way: () [facility]
--- NOTE | 2025-02-18 10:03 | VDLE_ITS ---
Reason For Study Reason For Study: Swelling RLE RIGHT SFJ is occluded s/p ligation GSV is occluded throughout s/p Venaseal ablation. CFV is partially compressible with bright intraluminal echoes consistent with Chronic DVT. Flow appears spontaneous and phasic and INCOMPETENT with reflux greater than 1.0 second FV is partially compressible with bright intraluminal echoes consistent with Chronic DVT. Flow appears spontaneous, phasic and INCOMPETENT for greater than 1.0 second. POP V is compressible, phasic, and INCOMPETENT for greater than 1.0 second. T/P Trunk is compressible. PTV is compressible. RT PerV is compressible RT ASV from junction to knee is COMPETENT (runs along the medial side of thigh) RT ASV at knee connects to the SSV mid. ASV at knee is INCOMPETENT for greater than 0.5 seconds and measures 0.37cm x 0.34 cm. ASV proximal calf is INCOMPETENT for greater than 0.5 seconds and measures 0.41cm x 0.30 cm. SSV mid calf is competent and measures 0.31cm x 0.29 cm. Procedure This is a venous duplex using B-mode, color flow and spectral Doppler. Exam performed in department. A preliminary report was called and/or faxed to Britany RUSH. VL/Venous Duplex US, Unilateral Interpretation Summary Deep veins of the right lower extremity are patent and compressible segmentally . There is no evidence of right lower extremity deep vein thrombosis. Unchanged appearance/wall thickening. Occlusion of great saphenous vein consistent with recent ablation. Reflux noted in the right common femoral vein, femoral vein, popliteal vein, ac cessory saphenous vein from junction, accessory saphenous vein at knee/calf. Ordering Physician: Greg Enrique Referring Physician: Jose Alejandro London Performed By: Nicolasa Alexandre, RDCS, RVT
== END | disposition home or self-care (01) ==
LOC: CVS 10:02
PROVIDERS: PCP Internal Medicine; Referring Provider Surgery Trauma Surgery; Visit Provider Surgery Trauma Surgery
DX: I83.891 Varicose veins of right lower extremity with other complications (principal); I87.2 Venous insufficiency (chronic) (peripheral); M79.89 Other specified soft tissue disorders
CPT/HCPCS: 93971

== ENCOUNTER 2025-03-17 14:01 | Outpatient (CLI) | payer MEDICAID, SELFPAY ==
--- NOTE | 2025-03-17 14:06 | RAD_ITS ---
PROCEDURE: RAD/HIP, UNI W/ Pelvis 2-3 Views
[2025-03-17 17:45] LABS: Hematocrit 41.6 % (37-47); Hemoglobin 13.8 g/dL (12.0-15.0); Immature Granulocytes Count 0.010 X10^3/uL (0.0-0.0); Mean Corp Hgb Conc 33.2 g/dL (32-36); Mean Corpuscular Volume 85.1 fL (81-99); Mean Platelet Vol. 11.3 fl (6.2-12.0); NRBC Flagged by Analyzer 0 % (0-5); Platelet Count 185 K/mm3 (150-450); RBC Distribution Width CV 12.7 % (11.6-14.6); RBC Distribution Width SD 39.2 fl (35.1-43.9); Red Blood Count 4.89 M/mm3 (4.2-5.4); White Blood Count 5.2 K/mm3 (4.4-11.0)
[2025-03-17 18:47] LABS: AST(SGOT) 22 U/L (<=31); Alanine Aminotransfer ALT/SGPT 27 U/L (<=34); Albumin, Serum 4.3 g/dL (3.5-5.0); Alkaline Phosphatase 65 U/L (35-104); Anion Gap 9 (5-15); BUN 8 mg/dL (4-19); BUN/Creat Ratio 12.1 RATIO (10-20); Calcium,Total 9.0 mg/dL (7.6-11.0); Carbon Dioxide 25.6 mmol/L (21.0-32.0); Chloride 105 mmol/L (98-108); Globulin 2.6 g/dL (2.2-4.2); Glucose 91 mg/dL (70-99); Magnesium 2.1 mg/dL (1.5-2.2); Potassium 4.1 mmol/L (3.3-5.1); Vitamin B12 259 pg/mL (180-914)
[2025-03-17 19:46] LABS: AST(SGOT) 22 U/L (<=31); Alanine Aminotransfer ALT/SGPT 27 U/L (<=34); Albumin, Serum 4.2 g/dL (3.5-5.0); Alkaline Phosphatase 63 U/L (35-104); Anion Gap 9 (5-15); BUN 8 mg/dL (4-19); BUN/Creat Ratio 11.0 RATIO (10-20); Calcium,Total 9.2 mg/dL (7.6-11.0); Carbon Dioxide 25.5 mmol/L (21.0-32.0); Chloride 105 mmol/L (98-108); Cholesterol 111 mg/dL (<=200); Globulin 2.6 g/dL (2.2-4.2); Glucose 90 mg/dL (70-99); Low Density Lipoprotein Calc. 53 mg/dL; Potassium 4.0 mmol/L (3.3-5.1); Triglycerides 118 mg/dL; Very Low Density Lipoprotein 24 mg/dL (5-40); Vitamin B12 287 pg/mL (180-914); Vitamin D,25 Hydroxy 18.1 ng/mL (30-100); cholesterol:hdl ratio screen 3.01
[2025-03-24 14:09] LABS: Vitamin D 1,25-Dihydroxy 24.0 pg/mL (24.8-81.5)
[2025-03-26 08:09] LABS: Folate, Hemolysate Test 419.0 ng/mL (Not Estab.); Folate, RBC (Hct) Test 43.5 % (34.0-46.6); Folates, RBC Test 963 ng/mL (>498); VITAMIN B6 4.4 ug/L (3.4-65.2); Vitamin B1, Thiamine 137.0 nmol/L (66.5-200.0)
== END 2025-03-17 23:59 | disposition home or self-care (01) ==
LOC: MTLAB 14:03
PROVIDERS: PCP Internal Medicine; Referring Provider Psychiatry & Neurology Neurology; Visit Provider Physician Assistant
DX: R52 Pain, unspecified (principal); I10 Essential (primary) hypertension; E03.9 Hypothyroidism, unspecified; R53.83 Other fatigue; R20.2 Paresthesia of skin; Z13.21 Encounter for screening for nutritional disorder
CPT/HCPCS: 36415; 73502; 80053; 80061; 82306; 82607; 82652; 82747; 83036; 83735; 84207; 84425; 84439; 84443; 85014; 85025; 85027

== ENCOUNTER → 2025-03-19 | Outpatient (CLI) | payer MEDICAID, SELFPAY ==
--- NOTE | 2025-03-19 13:04 | MRI_ITS ---
PROCEDURE: MRI/Brain without Contrast
== END | disposition home or self-care (01) ==
LOC: OPMRI 13:03
PROVIDERS: PCP Internal Medicine; Referring Provider Psychiatry & Neurology Neurology; Visit Provider Psychiatry & Neurology Neurology
DX: G43.909 Migraine, unspecified, not intractable, without status migrainosus (principal); R20.2 Paresthesia of skin
CPT/HCPCS: 70551

== ENCOUNTER → 2025-03-25 | Outpatient (CLI) | payer MEDICAID, SELFPAY ==
--- NOTE | 2025-03-25 10:53 | VDLE_ITS ---
Reason For Study VL/Venous Duplex US, Unilateral
== END | disposition home or self-care (01) ==
PROVIDERS: PCP Internal Medicine; Referring Provider Physician Assistant; Visit Provider Physician Assistant
DX: M79.604 Pain in right leg (principal); I87.2 Venous insufficiency (chronic) (peripheral)
CPT/HCPCS: 93971

== ENCOUNTER → 2025-03-27 | Outpatient (CLI) | payer MEDICAID, SELFPAY | END | disposition home or self-care (01) | LOC: LABSPEC 15:08 | PROVIDERS: PCP Internal Medicine | DX: J02.9 Acute pharyngitis, unspecified (principal) | CPT/HCPCS: 87070 ==

== ENCOUNTER 2025-04-08 09:10 | Emergency (ER) | payer MEDICAID, SELFPAY ==
[2025-04-08 09:11] VITALS: BP 135/84; PULSE 91; RESP 18; TEMP 36.9; O2SAT 100; BMI 39.6
[2025-04-08 09:13] VITALS: BP 131/71; PULSE 85; RESP 17; TEMP 37; O2SAT 100
--- NOTE | 2025-04-08 09:33 | EKG12_ITS ---
Test Reason : palp Blood Pressure : */* mmHG Vent. Rate : 86 BPM Atrial Rate : 86 BPM P-R Int : 160 ms QRS Dur : 82 ms QT Int : 364 ms P-R-T Axes : 67 49 29 degrees QTcB Int : 435 ms Normal sinus rhythm Normal ECG Confirmed by ANNA HARTMAN, SHAYNA ([id number]), commercial production editor DIANE SILVER ([id number]) on 04/09/2025 6:49:19 AM Referred By: Ug/cg Confirmed By: SHAYNA CASTILLO MD
[2025-04-08 09:50] LABS: Hematocrit 40.9 % (37-47); Hemoglobin 13.5 g/dL (12.0-15.0); Immature Granulocytes Count 0.010 X10^3/uL (0.0-0.0); Mean Corp Hgb Conc 33.0 g/dL (32-36); Mean Corpuscular Volume 86.7 fL (81-99); Mean Platelet Vol. 11.0 fl (6.2-12.0); NRBC Flagged by Analyzer 0 % (0-5); Platelet Count 154 K/mm3 (150-450); RBC Distribution Width CV 12.8 % (11.6-14.6); RBC Distribution Width SD 40.5 fl (35.1-43.9); Red Blood Count 4.72 M/mm3 (4.2-5.4); White Blood Count 4.4 K/mm3 (4.4-11.0)
--- NOTE | 2025-04-08 10:01 | EDS_ITS ---
HPI History of Present Illness Chief Complaint: Palpitations Detail of Chief Complaint: Palpitations multiple times since this weekend. Informant: patient Onset/Context/Timing Onset: Days Context: Sudden Onset Timing: Intermittent (Up to several hours) Quality: Palpitations, heart rate max was 109 per patient Location: Chest Current Severity: Gone Maximum Severity: Moderate Worsened by: Nothing specific. Patient did comment she has history of anxiety Relieved by: Nothing Associated Symptoms Associated Symptoms: Discomfort chest on Monday that lasted hours. Narrative Narrative: Patient is a 39-year-old woman. She has history of blood clots. She is presently on aspirin. She also has history of depression and anxiety. This past Monday she had palpitations. She did assess her heart rate and maximum rate was 109. She did have discomfort in her chest. She states she was not able to sleep because she had discomfort in her chest at 4 AM. She did feel slightly short of breath. She denied pain with breathing. She has had no increased swelling of her lower extremities. She has chronic pain in her left lower extremity. She has had prior blood clots in her left lower extremity. He also complains of pain in the left upper extremity due to cervical disc disease. She is seen by neurology and pain management for this. Patient denies recent fever. She has had some mild nasal congestion. She is status post thyroidectomy. She states her levothyroxine dose was recently decreased because of her thyroid levels. She denies weight gain or weight loss. She denies heat or cold intolerance. Patient presently has no chest discomfort. Patient denies shortness of breath presently. She denies abdominal pain, nausea, vomiting diarrhea. She denies black or maroon-colored stool. Prior similar symptoms: No Recent Illness/Hospitalization: No [facility] Medical History Strain of left hip Encounter for vitamin deficiency screening Bacterial sinusitis Dysfunction of right eustachian tube Obesity (BMI 30-39.9) Borderline type 2 diabetes mellitus Hx of flexible sigmoidoscopy Wears glasses Heartburn Bronchitis History of edema Hx of fracture of arm Deep vein blood clot of right lower extremity DVT (deep venous thrombosis) Right foot sprain Right ankle sprain Breast pain, right Herniated nucleus pulposus, C4-5 Contact with or exposure to other viral diseases Dermatitis PONV (postoperative nausea and vomiting) Leg cramps Anxiety and depression Left shoulder pain Depression Chronic pain Cancer Arthritis Fatty liver Restless legs Back pain Injury of head and neck Syncope Fibromyalgia History of pain when walking Hypertension History of echocardiogram History of stress test Cardiology follow-up encounter Localized swelling, mass and lump, neck Cervical lymphadenopathy Heartburn Chronic RUQ pain Tinnitus Vertigo Ectopic cardiac beats Palpitations RUQ abdominal pain Cervical radiculopathy Chronic back pain Left-sided low back pain with left-sided sciatica Hypocalcemia Tobacco abuse Bronchitis Morbid obesity Post herpetic neuralgia NICOLÁS (generalized anxiety disorder) ADHD (attention deficit hyperactivity disorder), combined type Numbness and tingling of both upper extremities Numbness of both lower extremities Migraine without aura and with status migrainosus, not intractable PCOS (polycystic ovarian syndrome) History of gestational diabetes Almaz's thyroiditis History of acne Thyroid disease Home Medications ?Medication ?Instructions ?Recorded ?Last Taken ?Type albuterol sulfate 2.5 mg/3 mL 2.5 mg (3 mL) inhalation Q6H PRN 01/16/24 Unknown Rx (0.083 %) solution for nebulization shortness of breat h or wheezing #90 mL compress.stocking,knee,reg,lrg #2 ea 03/21/24 Unknown Rx albuterol sulfate 90 mcg/actuation 2 puff inhalation Q 6H PRN 05/03/24 04/05/25 Rx aerosol inhaler shortness of breath or wheez ing #8.5 grams aspirin 81 mg tablet,delayed 81 mg PO DAILY 07/08/24 1 06/07/24 History release (Adult Low Dose Aspirin) ketoprofen 75 mg capsule 75 mg PO Q6H PRN Migraine Sy mptoms 12/17/24 Unknown Rx #100 caps prochlorperazine maleate 10 mg 10 mg PO BID PRN for mi graine #30 01/08/25 Unknown Rx tablet TABLETS amlodipine 5 mg tablet 5 mg PO DAILY for blood pres sure 02/24/25 04/07/25 Rx #90 TABLETS ursodiol 300 mg capsule 300 mg PO BID #180 caps 11/1304/07/25 Rx rizatriptan 10 mg tablet 10 mg PO .COMPLEX migraine 1 Unknown Rx headache #9 tabs topiramate 25 mg tablet See Rx Instructions .Route 1 Unknown Rx .COMPLEX #60 tabs cholecalciferol (vitamin D3) 1,250 1,250 mcg PO QWEEK #14 caps 03/18/25 Unknown Rx mcg (50,000 unit) capsule levothyroxine 125 mcg tablet 125 mcg PO DAILY synthroi d #60 tabs 03/18/25 04/08/25 Rx rosuvastatin 5 mg tablet 5 mg PO QHS cholesterol #90 tabs 03/18/25 04/07/25 Rx diclofenac sodium 1 % topical gel 4 g topical 4X/DAY P RN Neck and 04/08/25 03/30/25 History other musculoskeletal pain duloxetine 30 mg capsule,delayed 30 mg PO DAILY nerve pain 04/08/25 04/07/25 History release hydroxyzine HCl 25 mg tablet 25 mg PO BID PRN anxiety 04/08/25 Unknown History oxycodone-acetaminophen 5 mg-325 1 tab PO Q8H PRN pain 04/08/25 04/07/25 History mg tablet Allergy/AdvReac Type Severity Reaction Status Date / Time latex Allergy Itching Verified 04/08/25 09:11 naproxen Allergy Unknown Verified 04/08/25 09:11 Penicillins (PCN) Allergy Rash Verified 04/08/25 09:11 escitalopram (From Lexapro) AdvReac Intermediate Lightheaded Verified 04/08/25 09:11 sertraline (From Zoloft) AdvReac Intermediate Dizzy & Verified 04/08/25 09:11 Headache NSAIDS (Non-Steroidal AdvReac Mild Other Verified 04/08/25 09:11 Anti-Inflamma hydrocodone (From Vicodin) AdvReac Other Verified 04/08/25 09:11 ketorolac (From Toradol) AdvReac Other Verified 04/08/25 09:11 Family History Grandmother Diabetes Hypertension Hypercholesterolemia Thyroid disorder Mother Family history of skin cancer Other High cholesterol Surgical History History of varicose vein ligation (08/27/24) History of carpal tunnel surgery of right wrist History of surgery on lower extremity Status post incision and drainage (~04/15/22) History of total vaginal hysterectomy (TVH) (~03/22/22) History of thyroidectomy Social History household members: spouse housing: house Smoking Status: Heavy Smoker (>10/day) Tobacco: How many years used: 13 Electronic Cigarette Use: not used second hand exposure: No alcohol intake: current alcohol intake frequency: holidays/special occasions only substance use type: does not use caffeine: Yes what type of physical activity do you participate in: none seatbelt use: always do you feel safe at home: Yes additional social history: emmy [place] ED Constitutional Constitutional ED: Denies chills, fever(s), subjective, sweats or weight loss Eyes Eyes: Denies blurry vision, change in vision or diplopia ENT ENT ED: Reports rhinorrhea; Denies ear pain or sore throat Cardiovascular Cardiovascular: Reports chest pain, palpitations and racing heartbeat; Denies orthopnea or paroxysmal nocturnal dyspnea Respiratory/Chest Respiratory/Chest: Reports cough and dyspnea; Denies dyspnea on exertion, orthopnea, paroxysmal nocturnal dyspnea or sputum Gastrointestinal Gastrointestinal: Denies abdominal pain, diarrhea, melena, nausea or vomiting Genitourinary Genitourinary ED: Denies dysuria, hematuria or urinary frequency Musculoskeletal Musculoskeletal: Denies arthralgias, back pain, myalgias or neck pain Integumentary Denies abscess, Abrasions or rash Neurologic Neurologic: Denies headache(s), paresthesias or weakness Psychiatric Psychiatric: Denies anxiety or depression Endocrine Endocrinology: Denies cold intolerance or heat intolerance Hematologic/Lymphatic Hematologic/Lymphatic: Reports systems reviewed and no addt'l complaints, except as documented EXAM Physical Exam Const Vital Signs: 04/08/25 09:11 04/08/25 09:13 04/08/25 09:16 Temperature 98.4 F 98.6 F Temperature Source Oral Oral Pulse Rate 91 85 Respiratory Rate 18 17 Respiratory Effort Normal Non-Labored Short of Breath Blood Pressure 135/84 H 131/71 H Blood Pressure Mean 101 91 Pulse Ox 100 100 Oxygen Delivery Method Room Air Room Air Positive well nourished and well developed Constitutional Narrative: Patient appears in no distress. BMI is 39.7. Blood pressure slightly elevated. General Appearance ED: well developed and NAD; Negative for cyanotic, diaphoretic or pallor HEENT Reports moist mucous membranes Negative for trauma Eyes PERRL and EOMs intact bilaterally General Eye ED: Negative for pale conjunctiva or scleral icterus Neck no lymphadenopathy, supple and no JVD Neck Narrative: Trachea is midline. Surgical scar noted for thyroidectomy Resp normal respiratory effort and clear to auscultation bilaterally Cardio regular rate, regular rhythm, S1 normal heart sound, S2 normal heart sound and no murmurs GI normal to inspection, nondistended, normoactive bowel sounds, non-tender, non- distended and no masses; Negative for hepatosplenomegaly Extremity Negative for normal to inspection Extremity Narrative: Varicosities right lower extremity. There is slight discoloration. There is no significant asymmetry, leg pain distention, palpable cords or tenderness on the distribution deep venous system. Neuro oriented x3, CN's II-XII intact bilaterally and no sensory deficits noted Sensorium / Orientation: alert Psych mental status grossly normal Skin no rashes or lesions noted, no wounds and skin turgor normal General Skin Exam: elasticity normal; Negative for jaundice or pallor MDM MDM MDM Narrative Medical decision making narrative: Differential diagnosis would include anxiety, hyperventilation syndrome, history is not consistent with pulmonary embolus, thoracic aortic dissection, pneumothorax or pneumonia. Because she had chest heaviness tightness for hours on Monday will obtain a troponin level. Also EKG was obtained to see if there is any evidence of preexcitation syndrome i.e. WPW, Ruiz Long Gan[place] syndrome, prolonged QT, etc. Lab Data Attestation: I reviewed the patient's lab results. Lab results narrative: CBC is normal. Basic metabolic panel is remarked for glucose of 146. CO2 and anion gap are normal. Troponin is less than 6. Will not obtain 2-hour or 4- hour. Labs: Laboratory Results - last 24 hr 04/08/25 09:45 WBC 4.4 RBC 4.72 Hgb 13.5 Hct 40.9 MCV 86.7 MCH 28.6 MCHC 33.0 RDW Std Deviation 40.5 RDW Coeff of Mikel 12.8 Plt Count 154 MPV 11.0 Immature Gran % (Auto) 0.200 Neut % (Auto) 63.6 Lymph % (Auto) 23.9 Sebastian % (Auto) 7.7 Eos % (Auto) 3.9 Baso % (Auto) 0.7 Absolute Neuts (auto) 2.8 Absolute Lymphs (auto) 1.05 Nucleated RBC % 0 Sodium 136 Potassium 3.9 Chloride 104 Carbon Dioxide 23.1 Anion Gap 10 BUN 8 Creatinine 0.70 Estim Creat Clear Calc 139.34 Est GFR (MDRD) Non-Af 114 BUN/Creatinine Ratio 11.6 Glucose 146 H Calcium 9.0 Troponin T High Sens < 6 EKG Initial EKG: Attestation: I personally reviewed and interpreted this EKG as follows: Interpretation: Sinus Rhythm (Rate is 86. EKG is normal. LA interval is 160 ms. Cures duration 82 ms. QT duration 264 ms. Redford is normal. This is unchanged from February 13, 2025.) Prior: Unchanged Treatment and Re-Evaluation Comments:: Patient was informed of results. She states she had a recent A1c and it was 5.9. Plan is to discharge to home. Went over how to take the lorazepam which she was prescribed. Discharge Plan Triage Chief Complaint: Palpitations ED Provider: Sorin Jacobs Dx/Rx/DC Orders Clinical Impression: Heart palpitations, Nondiabetic hyperglycemia, Hypertension, Metabolic dysfunction-associated steatotic liver disease (MASLD), Thyroid disease Instructions: ED Heart Palpitations, ED Hyperglycemia New Poss Diabetes Prescriptions: No Action albuterol sulfate 90 mcg/actuation HFA aerosol inhaler 2 puff inhalation Q6H PRN (Reason: shortness of breath or wheezing) Qty: 8.5 0RF prochlorperazine maleate 10 mg tablet 10 mg PO BID PRN (Reason: for migraine) Qty: 30 3RF rizatriptan 10 mg tablet 10 mg PO .COMPLEX Qty: 9 4RF Patient Comments: pt has not yet started taking Rx Instructions: Take 1 tablet orally every two hours as needed for headache up to three tablets per day topiramate 25 mg tablet See Rx Instructions .ROUTE .COMPLEX Qty: 60 3RF Patient Comments: pt has not yet started taking Rx Instructions: Take 1 tablet orally for 1 week then 1 tablet twice daily thereafter. aspirin [Adult Low Dose Aspirin] 81 mg tablet,delayed release (DR/EC) 81 mg PO DAILY oxycodone-acetaminophen 5-325 mg tablet 1 tab PO Q8H PRN (Reason: pain) hydroxyzine HCl 25 mg tablet 25 mg PO BID PRN (Reason: anxiety) duloxetine 30 mg capsule,delayed release(DR/EC) 30 mg PO DAILY diclofenac sodium 1 % gel 4 g topical 4X/DAY PRN (Reason: Neck and other musculoskeletal pain) albuterol sulfate 2.5 mg /3 mL (0.083 %) solution for nebulization 2.5 mg inhalation Q6H PRN (Reason: shortness of breath or wheezing) Qty: 90 1RF (DME) compress.stocking,knee,reg,lrg Misc See Rx Instructions .MEDSUPPLY Qty: 2 1RF Rx Instructions: wear daily for venous insufficiency 20-30 mmHg ketoprofen 75 mg capsule 75 mg PO Q6H PRN (Reason: Migraine Symptoms) Qty: 100 1RF Rx Instructions: 1 cap PO at on set of headache max of 3 in 24 hours, max 20 per month ursodiol 300 mg capsule 300 mg PO BID Qty: 180 1RF amlodipine 5 mg tablet 5 mg PO DAILY Qty: 90 1RF cholecalciferol (vitamin D3) 1,250 mcg (50,000 unit) capsule 1,250 mcg PO QWEEK Qty: 14 3RF Patient Comments: pt has not yet started taking rosuvastatin 5 mg tablet 5 mg PO QHS Qty: 90 1RF levothyroxine 125 mcg tablet 125 mcg PO DAILY Qty: 60 1RF Primary Care Provider: Jose Alejandro London Referrals: Jose Alejandro London MD [Primary Care Provider, Internal Medicine] - 1-2 Weeks Print Language: [place]se Disposition Disposition: Home, Self Care
[2025-04-08 10:13] LABS: Troponin T High Sensitivity < 6 ng/L (<=14)
[2025-04-08 10:14] LABS: Anion Gap 10 (5-15); BUN 8 mg/dL (4-19); BUN/Creat Ratio 11.6 RATIO (10-20); Calcium,Total 9.0 mg/dL (7.6-11.0); Carbon Dioxide 23.1 mmol/L (21.0-32.0); Chloride 104 mmol/L (98-108); Estimated Creatinine Clearance 139.34 ml/min (50-250); Glucose 146 mg/dL (70-99); Potassium 3.9 mmol/L (3.3-5.1)
[2025-04-08 11:04] VITALS: BP 105/63; PULSE 64; RESP 16; TEMP 36.7; O2SAT 97
== END 2025-04-08 11:05 | disposition home or self-care (01) ==
PROVIDERS: Emergency Provider Emergency Medicine; PCP Internal Medicine; Visit Provider Emergency Medicine
DX: R00.2 Palpitations (principal); Z79.82 Long term (current) use of aspirin; Z86.718 Personal history of other venous thrombosis and embolism; E07.9 Disorder of thyroid, unspecified; I10 Essential (primary) hypertension; F17.200 Nicotine dependence, unspecified, uncomplicated; Z90.710 Acquired absence of both cervix and uterus; Z79.899 Other long term (current) drug therapy; R73.9 Hyperglycemia, unspecified; K76.0 Fatty (change of) liver, not elsewhere classified; Z79.890 Hormone replacement therapy; F41.9 Anxiety disorder, unspecified
CPT/HCPCS: 80048; 84484; 85025; 93005; 99284; A4216

== ENCOUNTER 2025-04-12 10:48 | Emergency (ER) | payer MEDICAID, SELFPAY ==
[2025-04-12 10:49] VITALS: PULSE 94; RESP 17; TEMP 37.4; O2SAT 100; BMI 39.9
--- NOTE | 2025-04-12 11:31 | EKG12_ITS ---
Test Reason : CP Blood Pressure : */* mmHG Vent. Rate : 79 BPM Atrial Rate : 79 BPM P-R Int : 164 ms QRS Dur : 80 ms QT Int : 362 ms P-R-T Axes : 63 57 37 degrees QTcB Int : 415 ms Normal sinus rhythm with sinus arrhythmia Normal ECG Confirmed by ANNA HARTMAN, SHAYNA ([id number]), state editor JULIO HDEZ ([id number]) on 04/14/2025 1:38:15 PM Referred By: BALJINDER/YARY Confirmed By: SHAYNA CASTILLO MD
--- NOTE | 2025-04-12 11:31 | RAD_ITS ---
PROCEDURE: CHEST PA AND LATERAL 04/12/2025 REASON FOR EXAM: CHEST PAIN TECHNIQUE: Procedure Code: RADCXR Modality: DX Procedure: CHEST PA AND LATERAL COMPARISON: 08/29/2024 FINDINGS: LUNGS AND PLEURA: Unchanged bandlike opacity in the right lung base, likely atelectasis/scarring. The lungs are otherwise clear bilaterally. No pleural effusion or pneumothorax. HEART AND MEDIASTINUM: The heart size and mediastinal contours are normal. BONES: No acute osseous abnormality. RAD/Chest PA and Lateral IMPRESSION: NO ACUTE FINDINGS. Reading Location: [id number]
[2025-04-12 11:35] VITALS: O2SAT 96
[2025-04-12 11:39] LABS: Hematocrit 40.8 % (37-47); Hemoglobin 13.9 g/dL (12.0-15.0); Immature Granulocytes Count 0.010 X10^3/uL (0.0-0.0); Mean Corp Hgb Conc 34.1 g/dL (32-36); Mean Corpuscular Volume 84.8 fL (81-99); Mean Platelet Vol. 11.3 fl (6.2-12.0); NRBC Flagged by Analyzer 0 % (0-5); Platelet Count 168 K/mm3 (150-450); RBC Distribution Width CV 12.7 % (11.6-14.6); RBC Distribution Width SD 39.5 fl (35.1-43.9); Red Blood Count 4.81 M/mm3 (4.2-5.4); White Blood Count 4.7 K/mm3 (4.4-11.0)
--- NOTE | 2025-04-12 11:55 | ED.VIS.CHEST ---
HPI History of Present Illness Chief Complaint: Chest Pain Narrative Narrative: Chief complaint and HPI: 39-year-old female with past medical history of DVT, hypothyroidism, depression and anxiety who presents for evaluation of intermittent heart palpitations, shortness of breath, chest pain. Patient states for the past several days she has been having intermittent palpitations/tachycardia, sharp intermittent chest pain, intermittent shortness of breath. States she has had a low-grade fever over the last 2 days as well. She states she is unsure if it is related to her anxiety. Patient states she recently had her thyroid medication changed as it was too high based on her labs and therefore they decreased it. States she followed up with her primary care physician for her symptoms yesterday in which they are monitoring them. They state that it is not yet due to check her thyroid function as the medication change would yet to take effect. Patient was also seen in our emergency department on 04/08/2025 for same complaint in which she was ultimately discharged home. Review of systems: See HPI Medications: As listed on the chart Allergies: As listed on the chart PFSH: Per chart Vital signs: As listed on the chart. Reviewed. Physical exam: Gen: A&O x3, NAD but mildly anxious Head: Normocephalic, atraumatic Eyes: No sclera icterus, conjunctiva clear ENT: Moist mucous membranes Neck: Trachea midline CV: RRR, no murmurs, no peripheral edema Resp: Lungs CTA BL, no w/r/c Musc: Full ROM Skin: Warm, dry Psych: Cooperative [facility] Medical History Strain of left hip Encounter for vitamin deficiency screening Bacterial sinusitis Dysfunction of right eustachian tube Obesity (BMI 30-39.9) Borderline type 2 diabetes mellitus Hx of flexible sigmoidoscopy Wears glasses Heartburn Bronchitis History of edema Hx of fracture of arm Deep vein blood clot of right lower extremity DVT (deep venous thrombosis) Right foot sprain Right ankle sprain Breast pain, right Herniated nucleus pulposus, C4-5 Contact with or exposure to other viral diseases Dermatitis PONV (postoperative nausea and vomiting) Leg cramps Anxiety and depression Left shoulder pain Depression Chronic pain Cancer Arthritis Fatty liver Restless legs Back pain Injury of head and neck Syncope Fibromyalgia History of pain when walking Hypertension History of echocardiogram History of stress test Cardiology follow-up encounter Localized swelling, mass and lump, neck Cervical lymphadenopathy Heartburn Chronic RUQ pain Tinnitus Vertigo Ectopic cardiac beats Palpitations RUQ abdominal pain Cervical radiculopathy Chronic back pain Left-sided low back pain with left-sided sciatica Hypocalcemia Tobacco abuse Bronchitis Morbid obesity Post herpetic neuralgia NICOLÁS (generalized anxiety disorder) ADHD (attention deficit hyperactivity disorder), combined type Numbness and tingling of both upper extremities Numbness of both lower extremities Migraine without aura and with status migrainosus, not intractable PCOS (polycystic ovarian syndrome) History of gestational diabetes Almaz's thyroiditis History of acne Thyroid disease Home Medications Medication Instructions Recorded Last Taken Type albuterol sulfate 2.5 mg/3 mL 2.5 mg (3 mL) inhalation Q6H PRN 01/16/24 Unknown Rx (0.083 %) solution for nebulization shortness of breath or wheezing #90 mL compress.stocking,knee,reg,lrg #2 ea 03/21/24 Unknown Rx albuterol sulfate 90 mcg/actuation 2 puff inhalation Q6H PRN 05/03/24 04/05/25 Rx aerosol inhaler shortness of breath or wheezing #8.5 grams aspirin 81 mg tablet,delayed 81 mg PO DAILY 07/08/24 04/07/25 History release (Adult Low Dose Aspirin) ketoprofen 75 mg capsule 75 mg PO Q6H PRN Migraine Symptoms 12/17/24 Unknown Rx #100 caps prochlorperazine maleate 10 mg 10 mg PO BID PRN for migraine #30 01/08/25 Unknown Rx tablet TABLETS amlodipine 5 mg tablet 5 mg PO DAILY for blood pressure 02/24/25 04/07/25 Rx #90 TABLETS ursodiol 300 mg capsule 300 mg PO BID #180 caps 02/24/25 04/07/25 Rx rizatriptan 10 mg tablet 10 mg PO .COMPLEX migraine 03/05/25 Unknown Rx headache #9 tabs topiramate 25 mg tablet See Rx Instructions .Route 03/05/25 Unknown Rx .COMPLEX #60 tabs cholecalciferol (vitamin D3) 1,250 1,250 mcg PO QWEEK #14 caps 03/18/25 Unknown Rx mcg (50,000 unit) capsule levothyroxine 125 mcg tablet 125 mcg PO DAILY synthroid #60 tabs 03/18/25 04/08/25 Rx rosuvastatin 5 mg tablet 5 mg PO QHS cholesterol #90 tabs 03/18/25 04/07/25 Rx diclofenac sodium 1 % topical gel 4 g topical 4X/DAY PRN Neck and 04/08/25 03/30/25 History other musculoskeletal pain duloxetine 30 mg capsule,delayed 30 mg PO DAILY nerve pain 04/08/25 04/07/25 History release hydroxyzine HCl 25 mg tablet 25 mg PO BID PRN anxiety 04/08/25 Unknown History oxycodone-acetaminophen 5 mg-325 1 tab PO Q8H PRN pain 04/08/25 04/07/25 History mg tablet lorazepam 1 mg tablet 1 mg PO BID PRN anxiety 14 days 04/11/25 Unknown Rx #28 tabs Allergy/AdvReac Type Severity Reaction Status Date / Time latex Allergy Itching Verified 04/12/25 11:13 naproxen Allergy Unknown Verified 04/12/25 11:13 Penicillins (PCN) Allergy Rash Verified 04/12/25 11:13 escitalopram (From Lexapro) AdvReac Intermediate Lightheaded Verified 04/12/25 11:13 sertraline (From Zoloft) AdvReac Intermediate Dizzy & Verified 04/12/25 11:13 Headache NSAIDS (Non-Steroidal AdvReac Mild Other Verified 04/12/25 11:13 Anti-Inflamma hydrocodone (From Vicodin) AdvReac Other Verified 04/12/25 11:13 ketorolac (From Toradol) AdvReac Other Verified 04/12/25 11:13 Family History Grandmother Diabetes Hypertension Hypercholesterolemia Thyroid disorder Mother Family history of skin cancer Other High cholesterol Surgical History History of varicose vein ligation (08/27/24) History of carpal tunnel surgery of right wrist History of surgery on lower extremity Status post incision and drainage (~04/15/22) History of total vaginal hysterectomy (TVH) (~03/22/22) History of thyroidectomy Social History household members: spouse housing: house Smoking Status: Heavy Smoker (>10/day) Tobacco: How many years used: 13 Electronic Cigarette Use: not used second hand exposure: No alcohol intake: current alcohol intake frequency: holidays/special occasions only substance use type: does not use caffeine: Yes what type of physical activity do you participate in: none seatbelt use: always do you feel safe at home: Yes additional social history: emmy EXAM Physical Exam Const Vital Signs: 04/12/25 10:49 04/12/25 11:02 04/12/25 11:35 Temperature 99.3 F H Temperature Source Oral Pulse Rate 94 Respiratory Rate 17 Respiratory Effort Short of Breath Blood Pressure Blood Pressure Mean Pulse Ox 100 96 Oxygen Delivery Method Room Air Room Air 04/12/25 12:00 04/12/25 13:00 04/12/25 14:00 Temperature Temperature Source Pulse Rate 82 98 78 Respiratory Rate 21 H 16 Respiratory Effort Blood Pressure 119/76 111/71 120/70 Blood Pressure Mean 90 84 86 Pulse Ox 99 99 99 Oxygen Delivery Method 04/12/25 14:55 Temperature 98.3 F Temperature Source Pulse Rate 78 Respiratory Rate 16 Respiratory Effort Blood Pressure 120/70 Blood Pressure Mean 86 Pulse Ox 99 Oxygen Delivery Method MDM MDM MDM Narrative Medical decision making narrative: 39-year-old female with past medical history of DVT, hypothyroidism, depression and anxiety who presents for evaluation of intermittent heart palpitations, shortness of breath, chest pain. Patient states for the past several days she has been having intermittent palpitations/tachycardia, sharp intermittent chest pain, intermittent shortness of breath. States she has had a low-grade fever over the last 2 days as well. She states she is unsure if it is related to her anxiety. Patient states she recently had her thyroid medication changed as it was too high based on her labs and therefore they decreased it. States she followed up with her primary care physician for her symptoms yesterday in which they are monitoring them. They state that it is not yet due to check her thyroid function as the medication change would yet to take effect. Patient was also seen in our emergency department on 04/08/2025 for same complaint in which she was ultimately discharged home. On presentation, patient no acute distress. Mildly anxious. Mildly elevated temperature at 99.3 however not febrile. Differential diagnosis includes but is not limited to hyperthyroidism, arrhythmia, electrolyte abnormality, dehydration, pneumonia, pleurisy, viral illness, PE, ACS, anxiety. Patient already took aspirin prior to arrival. Laboratory workup ordered including chest x-ray. CBC without leukocytosis or anemia. D-dimer elevated 0.55. Cannot rule out PE. CTA chest ordered. BMP relatively unremarkable. Troponin unremarkable x 2. Magnesium unremarkable. BNP unremarkable. TSH normal, free T4 high at 1.5. Down from previous. Patient just had medication changes. CTA chest negative for PE. No acute lung findings. Chronic stable atelectasis/scarring bilaterally. COVID, flu, RSV negative. At this point in time, no clear etiology to explain patient's intermittent palpitations, tachycardia, shortness of breath. Patient was updated of all of her results. She states in the past when her D-dimer was elevated it was secondary to blood clots in her legs. I do not have vascular ultrasound available therefore will outpatient venous duplex ultrasound ordered to assess for DVT. Patient was offered a Holter monitor for her intermittent tachycardia but declined. Follow-up with primary care physician. She vermin understand the plan. Patient stable to discharge home EKG: Interpreted by me/EM physician: EKG shows a sinus arrhythmia without any acute ischemic changes. No prolonged QTc. Heart rate 79. Diagnostic: Interpreted by me/EM physician: Chest x-ray not pneumonia, effusion, cardiomegaly, pneumothorax. Radiology in agreement. Impression: 1. Episodic palpitation 2. Episodic shortness of breath 3. Episodic chest pain 4. History of thyroid disease 5. History of DVT Lab Data Labs: Laboratory Results - last 24 hr 04/12/25 04/12/25 10:59 13:12 WBC 4.7 RBC 4.81 Hgb 13.9 Hct 40.8 MCV 84.8 MCH 28.9 MCHC 34.1 RDW Std Deviation 39.5 RDW Coeff of Mikel 12.7 Plt Count 168 MPV 11.3 Immature Gran % (Auto) 0.200 Neut % (Auto) 58.5 Lymph % (Auto) 28.5 [place] % (Auto) 7.9 Eos % (Auto) 4.3 Baso % (Auto) 0.6 Absolute Neuts (auto) 2.8 Absolute Lymphs (auto) 1.34 Nucleated RBC % 0 D-Dimer Quant (PE/DVT) 0.55 H* Sodium 139 Potassium 3.8 Chloride 105 Carbon Dioxide 22.8 Anion Gap 11 BUN 6 Creatinine 0.69 L Estim Creat Clear Calc 141.93 Est GFR (MDRD) Non-Af 115 BUN/Creatinine Ratio 9.4 L Glucose 106 H Calcium 8.9 Magnesium 2.2 Troponin T High Sens < 6 Troponin T Hi Sens 2 Hr < 6 NT pro BNP II < 36 TSH 0.604 Free T4 1.50 H Radiography Diagnostic Testing: Clinical Impression(s) from Imaging Studies Chest X-Ray 04/12/25 11:31 IMPRESSION: NO ACUTE FINDINGS. Reading Location: [facility] Chest CTA 04/12/25 11:58 IMPRESSION: 1. No evidence of pulmonary embolus. 2. No acute lung disease. No aortic aneurysm or dissection. 3. Stable chronic atelectasis/scarring bilaterally. Reading Location: [facility] Discharge Plan Triage Chief Complaint: Chest Pain ED Provider: Chuck Allen Dx/Rx/DC Orders Clinical Impression: Chest pain, Palpitations Prescriptions: No Action albuterol sulfate 90 mcg/actuation HFA aerosol inhaler 2 puff inhalation Q6H PRN (Reason: shortness of breath or wheezing) Qty: 8.5 0RF prochlorperazine maleate 10 mg tablet 10 mg PO BID PRN (Reason: for migraine) Qty: 30 3RF rizatriptan 10 mg tablet 10 mg PO .COMPLEX Qty: 9 4RF Patient Comments: pt has not yet started taking Rx Instructions: Take 1 tablet orally every two hours as needed for headache up to three tablets per day topiramate 25 mg tablet See Rx Instructions .ROUTE .COMPLEX Qty: 60 3RF Patient Comments: pt has not yet started taking Rx Instructions: Take 1 tablet orally for 1 week then 1 tablet twice daily thereafter. lorazepam 1 mg tablet 1 mg PO BID PRN (Reason: anxiety) 14 Days Qty: 28 0RF aspirin [Adult Low Dose Aspirin] 81 mg tablet,delayed release (DR/EC) 81 mg PO DAILY oxycodone-acetaminophen 5-325 mg tablet 1 tab PO Q8H PRN (Reason: pain) hydroxyzine HCl 25 mg tablet 25 mg PO BID PRN (Reason: anxiety) duloxetine 30 mg capsule,delayed release(DR/EC) 30 mg PO DAILY diclofenac sodium 1 % gel 4 g topical 4X/DAY PRN (Reason: Neck and other musculoskeletal pain) albuterol sulfate 2.5 mg /3 mL (0.083 %) solution for nebulization 2.5 mg inhalation Q6H PRN (Reason: shortness of breath or wheezing) Qty: 90 1RF (DME) compress.stocking,knee,reg,lrg Misc See Rx Instructions .MEDSUPPLY Qty: 2 1RF Rx Instructions: wear daily for venous insufficiency 20-30 mmHg ketoprofen 75 mg capsule 75 mg PO Q6H PRN (Reason: Migraine Symptoms) Qty: 100 1RF Rx Instructions: 1 cap PO at on set of headache max of 3 in 24 hours, max 20 per month ursodiol 300 mg capsule 300 mg PO BID Qty: 180 1RF amlodipine 5 mg tablet 5 mg PO DAILY Qty: 90 1RF cholecalciferol (vitamin D3) 1,250 mcg (50,000 unit) capsule 1,250 mcg PO QWEEK Qty: 14 3RF Patient Comments: pt has not yet started taking rosuvastatin 5 mg tablet 5 mg PO QHS Qty: 90 1RF levothyroxine 125 mcg tablet 125 mcg PO DAILY Qty: 60 1RF Other Ambulatory Orders: Venous Duplex US - Hoang Extrem (Stat) Facility: [facility] Location: [facility] Provider: Jose Alejandro London Referrals: Jose Alejandro London MD [Primary Care Provider, Internal Medicine] - 3-5 Days Activity Restrictions/Additional Instructions: Follow-up with your primary care physician. Obtain your outpatient bilateral venous duplex ultrasounds to assess for DVT. Return back to ED if symptoms change or worsen. Print Language: Norwegian Disposition Disposition: Home, Self Care Discharge Date/Time: 04/12/25 15:10
[2025-04-12 11:57] LABS: D-Dimer Quantitative (DVT/PE) 0.55 FEU/ug/m (0.27-0.49)
--- NOTE | 2025-04-12 11:58 | CT_ITS ---
PROCEDURE: CTA CHEST W/WO CONTRAST 04/12/2025 REASON FOR EXAM: PE. History of DVT. Elevated D-dimer. Chest pain not improving. TECHNIQUE: Procedure Code: [id number] Modality: CT Procedure: CTA CHEST W/WO CONTRAST Axial CTA images obtained of the chest after the administration of intravenous contrast. MIP reconstructed images were created and reviewed. CONTRAST: Isovue 370 VOLUME: 100 mL One or more dose reduction techniques were used (e.g., Automated exposure control, adjustment of the mA and/or kV according to patient size, use of iterative reconstruction technique). RADIATION DOSE SUMMARY: CTDlvol: 14.25, 15.83 mGy DLP: 533.31 mGycm COMPARISON: 08/29/2024 and 02/06/2024 FINDINGS: PULMONARY ARTERIES There is no intraluminal filling defect suspicious for PE. AORTA No thoracic aortic aneurysm or dissection. LUNGS No focal airspace consolidation. No pulmonary mass. Stable chronic bandlike atelectasis/scarring in both lower lobes and the lingula. PLEURAL SPACES No pleural effusion. No pneumothorax. HEART No cardiomegaly. No significant pericardial effusion. MEDIASTINUM/HILUM No significant lymphadenopathy. CHEST WALL The chest wall is unremarkable. BONES No focal osseous abnormality or acute fracture. UPPER ABDOMEN Small hiatal hernia. CT/CTA Chest W/WO Contrast IMPRESSION: 1. No evidence of pulmonary embolus. 2. No acute lung disease. No aortic aneurysm or dissection. 3. Stable chronic atelectasis/scarring bilaterally. Reading Location: [id number]
--- OUTSIDE RECORDS SUMMARY | 2025-04-12 11:58 | XMS RPT_ITS | CCD ---
Author Organization [facility] Care Team Providers Care Statistician Name Role Phone Cassidy Moore MD Unavailable [phone] Sherrie MONKEY TRAINER, Hanh S Unavailable [phone] Debora Quiroz Unavailable Unavailable Debora Quiroz Unavailable Unavailable Nima Kaur Unavailable Unavailable Angeles RN RN, Sneha Medrano Unavailable Unavailteresita Balderas MONKEY TRAINER, Hanh S Unavailable [phone] Cassidy Moore MD Unavailable [phone])2 Dr. Aleena London Primary Care Provider 1(33 0) Dr. Aleena London Referring Provider [phone] ADRI Cho Attending Provider Unavailab Lynn MONKEY TRAINER, MONKEY TRAINER-C Deysi Attending Provider Dr. Aleena London Attending Provider [phone])2 Dr. Ralph Tracy Attending Provider 1(330) Dr. Royce Mckinney Attending Provider [phone] Cassidy Moore Attending Provider 1(330 ) Sherrie MONKEY TRAINER, MONKEY TRAINER-C Hanh Attending Provider [phone] Dr. Aleena London Primary Care Provider [phone] Dr. Aleena London Referring Provider [phone] ADRI Cho Attending Provider UnavailADRI Chen Attending Provider Cleve MARY, MONKEY TRAINER-C Rea Desai Attending Provider 1(3 30) Dr. Aleena London Primary Care Provider [phone] Dr. Aleena London Referring Provider [phone] ADRI Cho Attending Provider Dr. Aleena Garcia Attending Provider [phone])2 Baldomero MONKEY TRAINER, MONKEY TRAINER-Shiraz Bermudez Attending Provider ADRI Freire Attending Provider Dr. Aleena London Primary Care Provider [phone] Dr. Aleena London Referring Provider [phone])2 Dr. Ralph Tracy Attending Provider ADRI Cho Attending Provider ADRI Lomax Other Provider [phone] Dr. Aleena London Primary Care Provider [phone] Dr. Aleena London Referring Provider 1(330)2 Dr. Cassidy Moore Attending Provider [phone] Dr. Royce Mckinney Attending Provider Enoc MONKEY TRAINER, MONKEY TRAINER-C Libertad Attending Provider 1(330) Dr. Earnest Haynes [...] Dr. Aleena London Referring Provider [phone])2 Cleve MONKEY TRAINER, MONKEY TRAINER-C Rea Desai Attending Provider 1(3 30) Dr. [...] Aleena London Referring Provider 1(330)2 Enoc MARY, MONKEY TRAINER-C Libertad Attending Provider 1(330) Dr. Cassidy Moore Admit Provider [phone] Dr. Cassidy Moore Other Provider [phone] Dr. Aleena London Primary Care Provider 1(33 0) Dr. Aleena London Referring Provider 1(330)2 Dr. Cassidy Moore Attending Provider 1(330 ) Cleve MONKEY TRAINER, MONKEY TRAINER-C Rea Desai Attending Provider 1(3 30) Dr. Aleena London Attending Provider 1(330)2 Dr. Mo Washington Attending Provider [phone] ADRI Albert Attending Provider Dr. Jossue Sanchez Attending Provider [phone] Cassidy Moore Referring Provider 1(330 ) Enoc MONKEY TRAINER, MONKEY TRAINER-C Libertad Attending Provider 1(330) Dr. Cassidy Moore Admit Provider [phone] Dr. Cassidy Moore Other Provider [phone] Dr. Dimple Lynn Attending Provider 1(3 30) Dr. Aleena London Primary Care Provider [phone] Dr. Aleena London Referring Provider 1(330)2 Dr. Cassidy Moore Attending Provider 1(330 ) Dr. Adele Aguila Emergency Provider Dr. Christiano Eduardo Other Provider Unavaila [facility] Lita, Dr. Blount Primary Care Provider 1(33 0) Dr. Aleena London Referring Provider [phone])2 Cleve MONKEY TRAINER, MONKEY TRAINER-C Rea Desai Attending Provider 1(3 30) Dr. Aleena London Primary Care Provider [phone] Dr. Aleena London Referring Provider 1(330)2 Dr. Cassidy Moore Attending Provider 1(330 ) Cleve MONKEY TRAINER, MONKEY TRAINER-C Rea Desai Attending Provider [phone] Dr. Mo Washington Attending Provider ADRI Albert Attending Provider Dr. Jossue Sanchez Attending Provider Dr. Cassidy Moore Referring Provider 1(330 ) Enoc MONKEY TRAINER, MONKEY TRAINER-C Libertad Attending Provider 1(330) Dr. Cassidy Moore [...] 1(330)2 Dr. Jossue Sanchez Attending Provider Enoc MONKEY TRAINER, MONKEY TRAINER-C Libertad Attending Provider [phone] Pending, Provider Primary Care Unavailable Dr. Argelia Paris Attending Unavail able Cleve MONKEY TRAINER, MONKEY TRAINER-C Rea Desai Attending Provider [phone] ALEENA [...] [phone] Dr. Epifanio Kong [facility] Attending Provider Unavailab duyen Sutbbs MONKEY TRAINER, MONKEY TRAINER-C Libertad Attending Provider 1(330) Cleve MONKEY TRAINER, MONKEY TRAINER-C Rea Desai Attending Provider 1(3 30) LITA HARTMAN, ALEENA Fernandes Primary Care Physician (3 30) ALAN QUINN DO Attending Unavailable LITA HARTMAN, ALEENA Fernandes Primary Care Unavailab duyen LONDON MD, ALEENA Fernandes Primary Care Unavailab BALDO Farah Attending Unavailable Dr. Aleena London Primary Care Provider 1(33 0) Dr. Aleena London Referring Provider [phone])2 Sherrie MONKEY TRAINER, MONKEY TRAINER-C Hanh Attending Provider 1(330 ) Maeve MARY, MONKEY TRAINER-C Deysi Attending Provider Dr. Greg Enrique Attending Provider [phone] Dimple Luis Referring Provider Dr. Aleena London Attending Provider 1(330)2 MD Dmitry Pop Attending Provider [phone] Dr. Jossue Sancehz Attending Provider [phone] Aleena London Primary Care Provider 1(33 0) Dr. Aleena London Referring Provider 1(330)2 Dr. Yusuf Apple Attending Provider [phone] Dr. Aleena London Primary Care Provider 1(33 0) Dr. Aleena London Referring Provider 1(330)2 Dr. Aleena London Primary Care Provider 1(33 0) Dr. Aleena London Referring Provider 1(330)2 Sherrie MONKEY TRAINER, TYRA-Shiraz Schafer Attending Provider 1(330 ) Maeve MARY, MONKEY TRAINER-C Deysi Attending Provider [phone] Dr. Greg Enrique Attending Provider [phone] [...] Dimple Lynn Attending Provider [phone] Sherrie MONKEY TRAINER, MONKEY TRAINER-C Hanh Attending Provider 1(330 ) Dr. Aleena London Primary Care Provider 1(33 0) Dr. Aleena London Referring Provider 1(330)2 Dimple Lynn R Unavailable Dr. Aleena London Primary Care Provider 1(33 0) Dr. Aleena London Referring Provider 1(330)2 Dr. Ralph Tracy Attending Provider 1(330) Dr. Dimple Lynn Attending Provider [phone] Sherrie MONKEY TRAINER, TYRA-C Hanh Attending Provider 1(330 ) Dr. [...] Dimple Lynn Attending Provider 1(3 30) Sherrie MONKEY TRAINER, MARY ELLEN Schafer Attending Provider 1(330 ) [...] [phone] ADRI Albert Attending Provider Sherrie MARY, MONKEY TRAINER-C Hanh Attending Provider [phone] Dr. Aleena [...] Medrano Primary Care Provider Lita HARTMAN, Aleena Pavondicta Primary Care Prov ider OLEGHE, EFEWONGBE LISE Primary Care Unav ailable DB JR., TOMASZ Referring Unavailable DB JR., AKRON Admitting Unavailable OLEGHE, EFEWONGBE LISE Primary Care Unav ailable DB JR., AKRON Referring Unavailable DB JR., AKRON Admitting Unavailable OLEGHE, EFEWONGBE LISE Primary Care [...] LISE Primary Care Unav ailable SHERRIE, ULICES AGINES Attending Unava ilable SHERRIE, ULICES GAINES Attending [...] EFEWONGBE LISE Primary Care Unav ailable HASAN, RDAHA MAKI Attending Unavaila ble OLEGHE, EFEWONGBE LISE Primary Care Unav ailable FOSTER, LIBERTAD CLARK Attending Unavailable OLEGHE, EFEWONGBE LISE Primary Care Unav ailable ADAN MOONEY Attending Unavailable OLEGHE, EFEWONGBE LISE Primary Care Unav ailable SALGIA, ARNOLDO YAA TJennifer Attending Unavailable OLEGHE, EFEWONGBE LISE Primary Care Unav ailable FOSTER, LIBERTAD CLARK Attending Unavailable OLEGHE, EFEWONGBE LISE Primary Care Unav ailable Oleghe, Efewongbe Primary Care Unavailable Nuñez, Britany Attending Unavailable Nuñez, Britany Referring Unavailable Nuñez Britany Attending Unavailable Nuñez, Britany Referring Unavailable Oleghe, Efewongbe Primary Care Unavailable Oleghe, Efewongbe Primary Care Unavailable Iesha Loya Referring Unavailable Iesha Loya Attending Unavailable Augie Adams Attending Unavailable Oleghe, Efewongbe Primary Care Unavailable Oleghe, Efewongbe Primary Care Unavailable Greg Enrique Attending Unavailable Oleghe, Efewongbe Primary Care Unavailable Greg Enrique Attending Unavailable Nuñez, Britany Referring Unavailable Ungur Remus Attending Unavailable Oleghe, Efewongbe Primary Care Unavailable Mostafa, Moreno Referring Unavailable Mostafa, Moreno Attending Unavailable Oleghe, Efewongbe Primary Care Unavailable Oleghe, Efewongbe Primary Care Unavailable Irving Lobato Attending Unavailable Luis Alfredo Irving Referring Unavailable Earnest Haynes Attending Unavailable Oleghe, Efewongbe Primary Care Unavailable Baddologan, Earnest Referring Unavailable Nuñez, Britany Referring Unavailable Nuñez, Britany Attending Unavailable Oleghe, Efewongbe Primary Care Unavailable Oleghe, Efewongbe Primary Care Unavailable Lindsay MONKEY TRAINER, Hanh Attending Unavailable Lindsay MONKEY TRAINER, Hanh Referring Unavailable Nuñez, Britany Referring Unavailable Nuñez, Britany Attending Unavailable Oleghe, Efewongbe Primary Care Unavailable Edmond Young Attending Unavailable Oleghe, Efewongbe Primary Care Unavailable Oleghe, Efewongbe Primary Care Unavailable Patrick Banks Attending Unavailable Patrick Banks Referring Unavailable Oleghe, Efewongbe Primary Care Unavailable Iesha Loya Referring Unavailable Iesha Lyoa Attending Unavailable Oleghe, Efewongbe Primary Care Unavailable FayetteChetic Attending Unavailable Iva, Greg Referring Unavailable Nuñez, Britany Consulting Unavailable Iva, Greg Consulting Unavailable Oleghe, Efewongbe Referring Unavailable Iesha Loya Attending Unavailable Oleghe, Efewongbe Primary Care Unavailable Oleghe, Efewongbe Referring Unavailable Oleghe, Efewongbe Primary Care Unavailable Patrick Banks Attending Unavailable Oleghe, Efewongbe Primary Care Unavailable Dmitry Pop Attending Unavailable Dmitry Pop Referring Unavailable Oleghe, Efewongbe Primary Care Unavailable Nuñez, Britany Referring Unavailable Nuñez, Britany Attending Unavailable Oleghe, Efewongbe Primary Care Unavailable Nuñez, Britany Attending Unavailable Nuñez, Britany Referring Unavailable Oleghe, Efewongbe Primary Care Unavailable Lindsay MONKEY TRAINER, Hanh Referring Unavailable Lindsay MONKEY TRAINER, Hanh Attending Unavailable Lisa Berkowitz Referring Unavailable Lisa Berkowitz Attending Unavailable Oleghe, Efewongbe Primary Care Unavailable Fayette, Greg Referring Unavailable Iva, Greg Attending Unavailable Oleghe, Efewongbe Primary Care Unavailable Oleghe, Efewongbe Primary Care Unavailable Nuñez, Britany Referring Unavailable Nuñez, Britany Attending Unavailable Oleghe, Efewongbe Primary Care Unavailable Iva, Greg Referring Unavailable Fayette, Greg Attending Unavailable Luiz Ramyn Attending Unavailable LeannaLuizyn Referring Unavailable Oleghe, Efewongbe Primary Care Unavailable Cassidy Moore Referring Unavailable Cassidy Moore Attending Unavailable Oleghe, Efewongbe Primary Care Unavailable Antonio Albert Attending Unavailable Oleghe, Efewongbe Primary Care Unavailable Antonio Albert Referring Unavailable Oleghe, Efewongbe Primary Care Unavailable Germán Kulkarni Attending Unavailable Oleghe, Efewongbe Primary Care Unavailable Drake Guzman Attending Unavailable Oleghe, Efewongbe Primary Care Unavailable León Aiken Attending Unavailable Oleghe, Efewongbe Primary Care Unavailable Drake Guzman Attending Unavailable Oleghe, Efewongbe Primary Care Unavailable Shaq Laureano Attending Unavailable Oleghe, Efewongbe Primary Care Unavailable Augie Adams Referring Unavailable AngieAugie Attending Unavailable Oleghe, Efewongbe Primary Care Unavailable Chuck Allen Attending Unavailabl e Oleghe, Efewongbe Primary Care Unavailable Loly Sierra Attending Unavailable Oleghe, Efewongbe Primary Care Unavailable Ry Enamorado Attending Unavailable Klusty-KeoChuck Attending Unavailabl e Oleghe, Efewongbe Primary Care Unavailable Oleghe, Efewongbe Primary Care Unavailable Ashutosh Barajas Attending Unavailable Oleghe, Efewongbe Referring Unavailable Oleghe, Efewongbe Primary Care Unavailable Ralph Tracy Attending Unavailable Oleghe, Efewongbe Primary Care Unavailable Nuñez, Britany Referring Unavailable Nuñez, Britany Attending Unavailable Oleghe, Efewongbe Primary Care Unavailable Fayette, Greg Referring Unavailable Iva, Greg Attending Unavailable Nuñez, Britany Consulting Unavailable Oleghe, Efewongbe Primary Care Unavailable Iva Greg Attending Unavailable Nuñez, Britany Referring Unavailable Oleghe, Efewongbe Attending Unavailable Oleghe, Efewongbe Primary Care Unavailable Oleghe, Efewongbe Referring Unavailable Greyson Freire Attending Unavailable Oleghe, Efewongbe Primary Care Unavailable Earnest Haynes Referring Unavailable Oleghe, Efewongbe Primary Care Unavailable Nuñez, Britany Referring Unavailable Britany Nuñez Attending Unavailable Oleghe, Efewongbe Primary Care Unavailable Iesha Loya Referring Unavailable Iesha Loya Attending Unavailable Oleghe, Efewongbe Attending Unavailable Oleghe, Efewongbe Primary Care Unavailable Oleghe, Efewongbe Referring Unavailable Oleghe, Efewongbe Primary Care Unavailable Lisa Khan Referring Unavailable Lisa Khan Attending Unavailable Oleghe, Efewongbe Primary Care Unavailable Ralph Tracy Attending Unavailable Oleghe, Efewongbe Referring Unavailable Oleghe, Efewongbe Primary Care Unavailable Antonio Albert Attending Unavailable Antonio Albert Referring Unavailable Oleghe, Efewongbe Primary Care Unavailable Greg Enrique Attending Unavailable Britany Nuñez Referring Unavailable Oleghe, Efewongbe Primary Care Unavailable Iesha Loya Referring Unavailable Iesha Loya Attending Unavailable Oleghe, Efewongbe Primary Care Unavailable Greg Enrique Attending Unavailable Ry Enamorado Referring Unavailable Oleghe, Efewongbe Primary Care Unavailable Greg Enrique Consulting Unavailable Chet Enriqueic Referring Unavailable Greg Enrique Attending Unavailable Oleghe, Efewongbe Primary Care Unavailable Epifanio Kong Attending Unavailable Iesha Loya Referring Unavailable Iesha Loya Consulting Unavailable Oleghe, Efewongbe Primary Care Unavailable Iesha Loya Referring Unavailable Epifanio Kong Attending Unavailable Greg Enrique Attending Unavailable Savannah Britany Referring Unavailable Oleghe, Efewongbe Primary Care Unavailable Oleghe, Efewongbe Referring Unavailable Oleghe, Efewongbe Primary Care Unavailable Iesha Loya Attending Unavailable Oleghe, Efewongbe Referring Unavailable Oleghe, Efewongbe Primary Care Unavailable Iseha Loya Attending Unavailable Oleghe, Efewongbe Referring Unavailable Oleghe, Efewongbe Primary Care Unavailable Sigrid Ram Attending Unavailable Oleghe, Efewongbe Referring Unavailable Oleghe, Efewongbe Primary Care Unavailable Britany Nuñez Attending Unavailable Oleghe, Efewongbe Referring Unavailable Oleghe, Efewongbe Primary Care Unavailable Irving Lobato Attending Unavailable Oleghe, Efewongbe Attending Unavailable Oleghe, Efewongbe Primary Care Unavailable Oleghe, Efewongbe Referring Unavailable Oleghe, Efewongbe Primary Care Unavailable Cassie Krause Attending Unavailable Oleghe, Efewongbe Referring Unavailable Oleghe, Efewongbe Referring Unavailable Oleghe, Efewongbe Primary Care Unavailable Antonio Albert Attending Unavailable Oleghe, Efewongbe Referring Unavailable Oleghe, Efewongbe Primary Care Unavailable Patrick Banks Attending Unavailable Oleghe, Efewongbe Referring Unavailable Lisa Khan Attending Unavailable Oleghe, Efewongbe Primary Care Unavailable Greg Enrique Attending Unavailable Oleghe, Efewongbe Referring Unavailable Oleghe, Efewongbe Primary Care Unavailable Clover Handley Attending Unavailable Oleghe, Efewongbe Primary Care Unavailable Oleghe, Efewongbe Attending Unavailable Oleghe, Efewongbe Referring Unavailable Oleghe, Efewongbe Primary Care Unavailable Oleghe, Efewongbe Referring Unavailable Iesha Loya Attending Unavailable Oleghe, Efewongbe Primary Care Unavailable Oleghe, Efewongbe Referring Unavailable Hanh Balderas NP Attending Unavailable Oleghe, Efewongbe Referring Unavailable Britany Nuñez Attending Unavailable Oleghe, Efewongbe Primary Care Unavailable Oleghe, Efewongbe Primary Care Unavailable Oleghe, Efewongbe Referring Unavailable Lisa Khan Attending Unavailable Oleghe, Efewongbe Primary Care Unavailable Charlette Ricks Attending Unavailable Oleghe, Efewongbe Referring Unavailable Juan J Lincoln Attending Unavailable Oleghe, Efewongbe Referring Unavailable Oleghe, Efewongbe Primary Care Unavailable Sigrid Ram Attending Unavailable Oleghe, Efewongbe Primary Care Unavailable Oleghe, Efewongbe Referring Unavailable Oleghe, Efewongbe Attending Unavailable Oleghe, Efewongbe Primary Care Unavailable Oleghe, Efewongbe Referring Unavailable Oleghe, Efewongbe Referring Unavailable Sherrie Hanh MARY Attending Unavailable Oleghe, Efewongbe Primary Care Unavailable Oleghe, Efewongbe Referring Unavailable Oleghe, Efewongbe Primary Care Unavailable Antonio Albert Attending Unavailable Oleghe, Efewongbe Referring Unavailable Oleghe, Efewongbe Primary Care Unavailable Earnest Haynes Attending Unavailable Sigrid Ram Attending Unavailable Oleghe, Efewongbe Primary Care Unavailable Oleghe, Efewongbe Referring Unavailable Oleghe, Efewongbe Primary Care Unavailable Jossue Sanchez Attending Unavailable Oleghe, Efewongbe Primary Care Unavailable Oleghe, Efewongbe Referring Unavailable Patrick Banks Attending Unavailable Oleghe, Efewongbe Primary Care Unavailable Nuñez, Britany Attending Unavailable Oleghe, Efewongbe Referring Unavailable Oleghe, Efewongbe Referring Unavailable Oleghe, Efewongbe Primary Care Unavailable Nuñez, Britany Attending Unavailable Oleghe, Efewongbe Primary Care Unavailable David Bender Attending Unavailable Lisa Khan Referring Unavailable Iva, Greg Attending Unavailable Nuñez, Britany Referring Unavailable Oleghe, Efewongbe Primary Care Unavailable Mostafa, Moreno Referring Unavailable DanielChace cochranril Attending Unavailable Oleghe, Efewongbe Primary Care Unavailable Oleghe, Efewongbe Primary Care Unavailable Iva Greg Attending Unavailable Nuñez, Britany Referring Unavailable Oleghe, Efewongbe Primary Care Unavailable Nuñez, Britany Referring Unavailable Iva, Greg Attending Unavailable Oleghe, Efewongbe Primary Care Unavailable Fayette, Greg Attending Unavailable Nuñez, Britany Referring Unavailable Iva, Greg Attending Unavailable Nuñez, Britany Referring Unavailable Fayette, Greg Referring Unavailable Fayette, Greg Attending Unavailable Oleghe, Efewongbe Primary Care Unavailable Oleghe, Efewongbe Referring Unavailable Oleghe, Efewongbe Primary Care Unavailable Antonio Albert Attending Unavailable Oleghe, Efewongbe Primary Care Unavailable Jossue Sanchez Attending Unavailable Lisa Berkowitz Attending Unavailable Oleghe, Efewongbe Referring Unavailable Oleghe, Efewongbe Primary Care Unavailable Oleghe, Efewongbe Referring Unavailable Edmond Young Attending Unavailable Oleghe, Efewongbe Primary Care Unavailable Oleghe, Efewongbe Referring Unavailable Oleghe, Efewongbe Primary Care Unavailable Greyson Freire Attending Unavailable Sigrid Ram Attending Unavailable Oleghe, Efewongbe Referring Unavailable Oleghe, Efewongbe Primary Care Unavailable Iva, Greg Attending Unavailable Nuñez, Britany Referring Unavailable Oleghe, Efewongbe Primary Care Unavailable Luis Alfredo, Irving Referring Unavailable Luis Alfredo, Irving Attending Unavailable Oleghe, Efewongbe Primary Care Unavailable Basilio, Greg Referring Unavailable Basilio, Greg Attending Unavailable Oleghe, Efewongbe Primary Care Unavailable Nuñez, Britany Referring Unavailable Nuñez, Britany Attending Unavailable Oleghe, Efewongbe Primary Care Unavailable Nuñez, Britany Referring Unavailable Nuñez, Britany Attending Unavailable Oleghe, Efewongbe Primary Care Unavailable Iesha Loya Referring Unavailable Iesha Loya Attending Unavailable Oleghe, Efewongbe Primary Care Unavailable Nuñez, Britany Referring Unavailable Nuñez, Britany Attending Unavailable Oleghe, Efewongbe Primary Care Unavailable Steidl, Tere L Referring Unavailable Steidl, Tree L Attending Unavailable Schwiger, Greg Attending Unavailable Oleghe, Efewongbe Primary Care Unavailable Allergies Allergy Classification Reported Allergen(s) Allergy Type Date of Onset Reaction(s) Facility (20 sources) ondansetron; Translations: [Zofran] drug allergy 01-10-20 17 [facility] (20 sources) penicillin v drug allergy 01-10-20 17 [facility] (1 source) ketorolac; Translations: [Toradol] Drug Allergy [facility] Repository (20 sources) Latex; Translations: [Latex] Propensity to adverse reactions to drug (disorder) 04-10-20 12 Eruption of skin (disorder), Rash [facility] Repository (20 sources) Penicillins; Translations: [penicillins] Propensity to adverse reactions to drug (disorder) 02-18-20 10 Hives [facility] Repository (7 sources) Acetaminophen Drug Allergy 08-21-19 22 Other [facility] Work Phone: (20 sources) Dicyclomine; Translations: [DICYCLOMINE] Drug Allergy 05-27-19 16 Intolerance, GI Intolerance, Unknown [facility] (20 sources) Escitalopram; Translations: [ESCITALOPRAM] Drug Allergy 02-25-20 16 Headache, Unknown [facility] (20 sources) HYDROcodone; Translations: [HYDROCODONE] Drug Allergy 03-15-20 21 Unknown [facility] (20 sources) Ketorolac; Translations: [KETOROLAC] Drug Allergy 05-27-19 16 Unknown [facility] (20 sources) Naproxen; Translations: [NAPROXEN] Drug Allergy 11-10-19 17 Unknown, Other (See Comments), Hives [facility] (20 sources) Ondansetron; Translations: [ONDANSETRON HCL] Drug Allergy 03-02-20 21 Migraine [facility] Repository (20 sources) Promethazine; Translations: [PROMETHAZINE] Drug Allergy 12-28-19 18 Unknown [facility] (20 sources) Sertraline; Translations: [SERTRALINE] Drug Allergy 02-25-20 16 Headache, Other (See Comments) [facility] (4 sources) Acetaminophen / HYDROcodone; Translations: [HYDROCODONE-ACET AMINOPHEN] Drug Allergy 02-25-20 22 Other (See Comments) [facility] Repository (1 source) Penicillin; Translations: [penicillins] Drug Allergy Eruption of skin (disorder) [facility] (7 sources) Escitalopram; Translations: [ESCITALOPRAM OXALATE] Drug Allergy 02-25-20 16 Other: See Comments [facility] Work Phone: (7 sources) Ondansetron; Translations: [ONDANSETRON HCL (PF)] Drug Allergy 08-17-19 13 Other: See Comments [facility] Work Phone: (7 sources) Promethazine; Translations: [PROMETHAZINE HCL] Drug Allergy 12-28-19 18 Unknown [facility] Work Phone: (7 sources) Sertraline; Translations: [SERTRALINE HCL] Drug Allergy 02-25-20 16 Other: See Comments [facility] Work Phone: (3 sources) Non-steroidal anti-inflammatory agent; Translations: [NSAIDS (NON-STEROIDAL ANTI-INFLAMMATORY DRUG)] Propensity to adverse reactions to drug 05-29-19 25 Unknown [facility] (1 source) Dicyclomine Drug Allergy 05-06-20 24 [facility] Repository (1 source) Escitalopram Drug Allergy 03-17-20 [facility] Repository (1 source) HYDROcodone Drug Allergy 03-17-20 [facility] Repository (1 source) Ketorolac Drug Allergy 03-17-20 [facility] Repository (1 source) Naproxen Drug Allergy 03-17-20 [facility] Repository (1 source) Sertraline Drug Allergy 03-17-20 [facility] Repository (1 source) NSAIDS (Non-Steroidal Anti-Inflamma Drug allergy (disorder) 03-17-20 [facility] Repository Medications Current Medications Medication Drug Class(es) [...] Comment on above: Take 1 capsule by [facility] once daily for 30 days. azithromycin [...] Comment on above: Take 1 capsule by [facility] once daily. fluconazole 150 mg oral [...] Start: 02-11-2024 take 1 tablet by [facility] once daily sertraline (ZOLOFT) 25 MG tablet [...] Discontinued 1 TABLET PO EVERY 6 HOURS 18 April 27, 2022 April 30, 2022 1:09am Start: [...] Oxycodone-Acetaminophen Discontinued 1 TABLET PO Q8H 12 4 May 03, 2021 May 07, 2021 1:02am [...] and post prandial BLOOD GLUCOSE MONITORING SUPPL [id number] Cassidy Moore MD Start: 02-06-2017 End: 02-13-2017 FREESTYLE FREEDOM LITE w/Dev ice KIT Check blood sugar fast and post prandial BLOOD GLUCOSE MONITORING SUPPL [id number] Cassidy Moore MD BLOOD GLUCOSE MONITORING SUP PL (13 sources) Start: 02-06-2017 End: 02-13-2017 FREESTYLE FREEDOM LITE w/Dev ice KIT Check blood sugar fast and post prandial BLOOD GLUCOSE MONITORING SUPPL [id number] Cassidy Moore MD Start: 02-06-2017 End: 02-13-2017 FREESTYLE FREEDOM LITE w/Dev ice KIT Check blood sugar fast and post prandial BLOOD GLUCOSE MONITORING SUPPL [id number] Cassidy Moore MD BLOOD GLUCOSE MONITORING SUPPL (2 sources) Start: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 Needs: No Transportation Needs (02/19/2020) Received from [facility] PRAPARE - Transportation Lack of Transportation (Medical): No Lack of Transportation (Non-Medical): No Physical Activity: Insufficiently Active (01/27/2020) Received from [facility] Exercise Vital Sign Days of Exercise per Week: 2 days Minutes of Exercise per Session: 20 min Stress: No Stress Concern Present (01/27/2020) Received from [facility] [place] [facility] - Occupational Stress Questionnaire Feeling of Stress : Only a little Social Connections: Moderately Isolated (01/27/2020) Received from [facility] Social Connection and Isolation Panel [NHANES] Frequency of Communication with Friends and Family: More than three times a week Frequency of Social Gatherings with Friends and Family: Twice a week Attends Evangelical Services: Never Active Member of Clubs or Organizations: No Attends Club or Organization Meetings: Never Marital Status: Housing Stability: Low Risk (01/27/2020) Received from [facility] Housing Stability Vital Sign Unable to Pay [...] times a d (more content not included)... [facility] ED Prov Noteon 05-28-2024 ED Prov Note ED PROVIDER NOTE [facility] EM[facility]GENC[facility] DEPART[facility] NAME: Lana Rivera AGE: 39 y.o. : 1985 VISIT DATE: 05/28/2024 CSN: [id number] PCP: Aleena London MD Chief Complaint Patient [...] Resource Strain: High Risk (02/19/2020) Received from [facility] Overall Financial Resource Strain (CARDIA) Difficulty of Paying Living Expenses: Hard Food Insecurity: No Food Insecurity (02/19/2020) Received from [facility] Hunger Vital Sign Worried About Running Out of Food in the Last Year: Never true Ran Out of Food in the Last Year: Never true Transportation Needs: No Transportation Needs (02/19/2020) Received from [facility] PRAPARE - Transportation Lack of Transportation (Medical): No Lack of Transportation (Non-Medical): No Physical Activity: Insufficiently Active (01/27/2020) Received from [facility] Exercise Vital Sign Days of Exercise per Week: 2 days Minutes of Exercise per Session: 20 min Stress: No Stress Concern Present (01/27/2020) Received from [facility] [place] [facility] - Occupational Stress Questionnaire Feeling of Stress : Only a little Social Connections: Moderately Isolated (01/27/2020) Received from [facility] Social Connection and Isolation Panel [NHANES] Frequency of Communication with Friends and Family: More than three times a week Frequency of Social Gatherings with Friends and Family: Twice a week Attends Evangelical Services: Never Active Member of Clubs or Organizations: No Attends Club or Organization Meetings: Never Marital Status: Housing Stability: Low Risk (01/27/2020) Received from [facility] Housing Stability Vital Sign Unable to Pay [...] Allergen Reactions Hydrocodo (more content not included)... [facility] ED Prov Noteon 05-09-2024 ED Prov Note HPI: 05/09/2024, Time: @LIZZ@ Lana Desai Ronnell is a 39 y.o. [...] are negative. PAST HISTORY Past Medical History: @[facility]@ Past Surgical History: has a past surgical [...] degrees C) (Oral) Resp 18 Ht 5' 6" Wt 110.7 kg (244 lb) LMP 02/04/2022 [...] Normal Affect (more content not included)... Normal [facility] ED Prov Noteon 04-15-2024 ED Prov Note ED PROVIDER NOTE [facility] EM[facility] DEPART[facility] NAME: Lana Rivera AGE: 38 y.o. : 1985 VISIT DATE: 04/15/2024 CSN: [id number] PCP: Aleena London MD Chief Complaint Patient [...] Resource Strain: High Risk (02/19/2020) Received from [facility] Overall Financial Resource Strain (CARDIA) Difficulty of Paying Living Expenses: Hard Food Insecurity: No Food Insecurity (02/19/2020) Received from [facility] Hunger Vital Sign Worried About Running Out of Food in the Last Year: Never true Ran Out of Food in the Last Year: Never true Transportation Needs: No Transportation Needs (02/19/2020) Received from [facility] PRAPARE - Transportation Lack of Transportation (Medical): No Lack of Transportation (Non-Medical): No Physical Activity: Insufficiently Active (01/27/2020) Received from [facility] Exercise Vital Sign Days of Exercise per Week: 2 days Minutes of Exercise per Session: 20 min Stress: No Stress Concern Present (01/27/2020) Received from [facility] [place] [facility] - Occupational Stress Questionnaire Feeling of Stress : Only a little Social Connections: Moderately Isolated (01/27/2020) Received from [facility] Social Connection and Isolation Panel [NHANES] Frequency of Communication with Friends and Family: More than three times a week Frequency of Social Gatherings with Friends and Family: Twice a week Attends Evangelical Services: Never Active Member of Clubs or Organizations: No Attends Club or Organization Meetings: Never Marital Status: Housing Stability: Low Risk (01/27/2020) Received from [facility] Housing Stability Vital Sign Unable to Pay [...] Allergies Allergen Reactions Hydrocodone Unknown Irritable before bedtime", would take it during the day. Latex Penicillins Toradol [Ketorolac] Vicodin [Hydrocodone-Acetaminop hen] Other ( (more content not included)... Normal [facility] CT ABDOMEN PELVIS WITH IV [...] left salpingo-oophorectomy. Ultrasound follow-up could be considered. ST/tde Workstation ID: [id number] Dictated by: JOHANNA MARCH on MonApr 01, 2024 11:57:43 AM EST Transcribed by: CATINA GENTILE on MonApr 01, 2024 12:07:32 PM EST Finalized by: JOHANNA MARCH on MonApr 01, 2024 9:03:59 PM EST Normal [facility] Comment on above: Order Comment: Injur y/Trauma or Illness?:Illness/Other How long have you had these symptoms (acute/chronic)?:Acute Reason for exam?:sudden onset of lower abd and right sided back pain in the night hx of ovarian cyst and endometreosis Type of Exam?:Initial Additional signs and symptoms?:na ED Prov Noteon 04-01-2024 ED Prov Note ED PROVIDER NOTE [facility] EM[facility]GENC[facility] DEPART[facility] NAME: Lana Rivera AGE: 38 y.o. : 1985 VISIT DATE: 04/01/2024 CSN: [id number] PCP: Aleena London MD Chief Complaint Patient [...] Resource Strain: High Risk (02/19/2020) Received from [facility] Overall Financial Resource Strain (CARDIA) Difficulty of Paying Living Expenses: Hard Food Insecurity: No Food Insecurity (02/19/2020) Received from [facility] Hunger Vital Sign Worried About Running Out of Food in the Last Year: Never true Ran Out of Food in the Last Year: Never true Transportation Needs: No Transportation Needs (02/19/2020) Received from [facility] PRAPARE - Transportation Lack of Transportation (Medical): No Lack of Transportation (Non-Medical): No Physical Activity: Insufficiently Active (01/27/2020) Received from [facility] Exercise Vital Sign Days of Exercise per Week: 2 days Minutes of Exercise per Session: 20 min Stress: No Stress Concern Present (01/27/2020) Received from [facility] [place] [facility] - Occupational Stress Questionnaire Feeling of Stress : Only a little Social Connections: Moderately Isolated (01/27/2020) Received from [facility] Social Connection and Isolation Panel [NHANES] Frequency of Communication with Friends and Family: More than three times a week Frequency of Social Gatherings with Friends and Family: Twice a week Attends Evangelical Services: Never Active Member of Clubs or Organizations: No Attends Club or Organization Meetings: Never Marital Status: Housing Stability: Low Risk (01/27/2020) Received from [facility] Housing Stability Vital Sign Unable to Pay [...] Reactions Hydrocod (more content not included)... Normal [facility] POC BASIC METABOLIC PANEL - [facility] 04-01-2024 Chloride [Moles/Vol] 105 mmol/L Normal 98-108 [facility] Comment on above: Order Comment: Injur y/Trauma or Illness?:Illness/Other How long have you had these symptoms (acute/chronic)?:Acute Reason for exam?:sudden onset of lower abd and right sided back pain in the night hx of ovarian cyst and endometreosis Type of Exam?:Initial Additional signs and symptoms?:na CO2 [Moles/Vol] 25 mmol/L Normal 21-32 [facility] Comment on above: Order Comment: Injur y/Trauma or Illness?:Illness/Other How long have you had these symptoms (acute/chronic)?:Acute Reason for exam?:sudden onset of lower abd and right sided back pain in the night hx of ovarian cyst and endometreosis Type of Exam?:Initial Additional signs and symptoms?:na Creatinine [Mass/Vol] 0.60 mg/dL Normal 0.40-1.10 [facility] Comment on above: Order Comment: Injur y/Trauma or Illness?:Illness/Other How long have you had these symptoms (acute/chronic)?:Acute Reason for exam?:sudden onset of lower abd and right sided back pain in the night hx of ovarian cyst and endometreosis Type of Exam?:Initial Additional signs and symptoms?:na Glucose [Mass/Vol] 139 mg/dL High 65-99 [facility] Comment on above: Order Comment: Injur y/Trauma or Illness?:Illness/Other How long have you had these symptoms (acute/chronic)?:Acute Reason for exam?:sudden onset of lower abd and right sided back pain in the night hx of ovarian cyst and endometreosis Type of Exam?:Initial Additional signs and symptoms?:na POC GFR 119 mL/min/1.73 m2 Normal >=60 [facility] Comment on above: [...] POC IONIZED CALCIUM 4.7 mg/dL Normal 4.5-5.3 [facility] Comment on above: Order Comment: Injur y/Trauma or Illness?:Illness/Other How long have you had these symptoms (acute/chronic)?:Acute Reason for exam?:sudden onset of lower abd and right sided back pain in the night hx of ovarian cyst and endometreosis Type of Exam?:Initial Additional signs and symptoms?:na Potassium [Moles/Vol] 4.0 mmol/L Normal 3.5-5.1 [facility] Comment on above: Order Comment: Injur y/Trauma or Illness?:Illness/Other How long have you had these symptoms (acute/chronic)?:Acute Reason for exam?:sudden onset of lower abd and right sided back pain in the night hx of ovarian cyst and endometreosis Type of Exam?:Initial Additional signs and symptoms?:na Sodium [Moles/Vol] 141 mmol/L Normal 135-145 [facility] Comment on above: Order Comment: Injur y/Trauma or Illness?:Illness/Other How long have you had these symptoms (acute/chronic)?:Acute Reason for exam?:sudden onset of lower abd and right sided back pain in the night hx of ovarian cyst and endometreosis Type of Exam?:Initial Additional signs and symptoms?:na Urea nitrogen [Mass/Vol] 9 mg/dL Normal 8-25 [facility] Comment on above: Order Comment: Injur y/Trauma or Illness?:Illness/Other How long have you had these symptoms (acute/chronic)?:Acute Reason for exam?:sudden onset of lower abd and right sided back pain in the night hx of ovarian cyst and endometreosis Type of Exam?:Initial Additional signs and symptoms?:na POC CBC AND DIFFERENTIALon 06-01-2023 BASOPHILS ABSOLUTE COUNT 0.02 K/mcL Normal 0.00-0.30 [facility] Basophils/100 WBC (Bld) 0.4 % Normal [facility] Eosinophils (Bld) [#/Vol] 0.26 10*3/uL Normal 0.00-0.50 [facility] Eosinophils/100 WBC (Bld) 4.7 % Normal [facility] Erythrocyte distribution width (RBC) [Ratio] 12.6 % Normal 11.6-14.8 [facility] Hematocrit (Bld) [Volume fraction] 44.1 % Normal 36.0-46.0 [facility] Hemoglobin (Bld) [Mass/Vol] 14.8 g/dL Normal 12.0-16.0 [facility] IG ABSOLUTE 0.01 K/mcL Normal 0.00-0.30 [facility] IG PERCENT 0.20 % Normal [facility] Comment on above: Result Comment: The IG parameter is the percentage of metamyelocytes, myelocytes and promyelocytes. An immature granulocyte count (IG) of 1% or more suggests the possibility of infection, an IG count of 3% is very likely related to an infection. Lymphocytes (Bld) [#/Vol] 1.46 10*3/uL Normal 0.90-4.00 [facility] Lymphocytes/100 WBC (Bld) 26.3 % Normal [facility] MCH (RBC) [Entitic mass] 28.9 pg Normal 26.0-34.0 [facility] MCV (RBC) [Entitic vol] 86.1 fL Normal 80.0-100.0 [facility] MEAN CORPUSCULAR HEMOGLOBIN CONC 33.6 g/dL Normal 31.0-37.0 [facility] Monocytes (Bld) [#/Vol] 0.42 10*3/uL Normal 0.30-0.90 [facility] Monocytes/100 WBC (Bld) 7.6 % Normal [facility] NEUTROPHILS ABSOLUTE COUNT 3.39 K/mcL Normal 1.70-7.00 [facility] Neutrophils/100 WBC (Bld) 60.8 % Normal [facility] Platelet mean volume (Bld) [Entitic vol] 11.0 fL Normal 9.4-12.4 [facility] Platelets (Bld) [#/Vol] 173 10*3/uL Normal 150-400 [facility] RBC (Bld) [#/Vol] 5.12 10*6/uL Normal 4.00-5.20 [facility] WBC (Bld) [#/Vol] 5.56 10*3/uL Normal 4.50-11.00 [facility] POC LIVER PANEL PLUS [facility] 04-01-2024 Albumin [Mass/Vol] 4.0 g/dL Normal 3.2-5.2 [facility] ALP [Catalytic activity/Vol] 57 U/L Normal 40-140 [facility] ALT [Catalytic activity/Vol] 29 U/L Normal 0-40 [facility] Amylase [Catalytic activity/Vol] 24 U/L Low 25-115 [facility] Amylase [Catalytic activity/Vol] 17 U/L Normal 7-33 [facility] AST [Catalytic activity/Vol] 28 U/L Normal 0-45 [facility] Bilirubin [Mass/Vol] 0.6 mg/dL Normal 0.0-1.3 [facility] Protein [Mass/Vol] 7.2 g/dL Normal 6.0-8.0 [facility] POC , URINE - [facility]ve 04-01-2024 Beta HCG ( test) Ql (U) Negative Normal Negative [facility] Comment on above: Order Comment: Injur y/Trauma or Illness?:Illness/Other How long have you had these symptoms (acute/chronic)?:Acute Reason for exam?:sudden onset of lower abd and right sided back pain in the night hx of ovarian cyst and endometreosis Type of Exam?:Initial Additional signs and symptoms?:na POC URINALYSIS DIPSTICK,AUTO - [facility] 04-01-2024 POC BILIRUBIN, URINE Negative Normal Negative [facility] POC BLOOD, URINE Negative Normal Negative [facility] POC GLUCOSE, URINE Negative Normal Negative [facility] POC KETONES, URINE Negative Normal Negative [facility] POC LEUKOCYTE ESTERASE, URINE Negative Normal Negative [facility] POC NITRITE, URINE Negative Normal Negative [facility] POC PH, URINE 6.5 Normal 5.0-7.0 [facility] POC PROTEIN, URINE Negative Normal Negative [facility] POC SPECIFIC GRAVITY 1.025 Normal 1.005-1.025 [facility] POC UROBILINOGEN 0.2 mg/dL Normal < 2.0 [facility] ED Prov Noteon 03-17-2024 ED Prov Note ED PROVIDER NOTE [facility] EMERGENCY DEPART[facility] NAME: Lana Rivera AGE: 38 y.o. : 1985 VISIT DATE: 03/17/2024 CSN: [id number] PCP: Aleena London MD Chief Complaint Patient [...] Resource Strain: High Risk (02/19/2020) Received from [facility] Overall Financial Resource Strain (CARDIA) Difficulty of Paying Living Expenses: Hard Food Insecurity: No Food Insecurity (02/19/2020) Received from [facility] Hunger Vital Sign Worried About Running Out of Food in the Last Year: Never true Ran Out of Food in the Last Year: Never true Transportation Needs: No Transportation Needs (02/19/2020) Received from [facility] PRAPARE - Transportation Lack of Transportation (Medical): No Lack of Transportation (Non-Medical): No Physical Activity: Insufficiently Active (01/27/2020) Received from [facility] Exercise Vital Sign Days of Exercise per Week: 2 days Minutes of Exercise per Session: 20 min Stress: No Stress Concern Present (01/27/2020) Received from [facility] [place] [facility] - Occupational Stress Questionnaire Feeling of Stress : Only a little Social Connections: Moderately Isolated (01/27/2020) Received from [facility] Social Connection and Isolation Panel [NHANES] Frequency of Communication with Friends and Family: More than three times a week Frequency of Social Gatherings with Friends and Family: Twice a week Attends Evangelical Services: Never Active Member of Clubs or Organizations: No Attends Club or Organization Meetings: Never Marital Status: Housing Stability: Low Risk (01/27/2020) Received from [facility] Housing Stability Vital Sign Unable to Pay [...] nausea . prochlorpe (more content not included)... [facility] XR CERVICAL SPINE COMPLETE 4 -5 VIEWS [...] well. 4. Upper lung zones are clear. [employer] Workstation ID: [id number] Dictated by: COLE PALM on [place] Mar 17, 2024 9:20:05 AM EDT Transcribed by: FLO MOSS on [place] Mar 17, 2024 9:48:26 AM EDT Finalized by: COLE PALM on [place] Mar 17, 2024 5:13:59 PM EDT [facility] Comment on above: Order Comment: Injur y/Trauma [...] on MonMar 11, 2024 12:13:13 PM EDT [facility] Comment on above: Order Comment: Injur y/Trauma or Illness?:Illness/Other How long have you had these symptoms (acute/chronic)?:Acute Reason for exam?:lower GI bleed with abd pain Type of Exam?:Initial Additional signs and symptoms?:na ED Prov Noteon 03-11-2024 ED Prov Note ED PROVIDER NOTE [facility] EM[facility] DEPART[facility] NAME: Lana Rivera AGE: 38 y.o. : 1985 VISIT DATE: 03/11/2024 [facility]: [id number] PCP: Aleena London MD Chief Complaint Patient [...] Resource Strain: High Risk (02/19/2020) Received from [facility] Overall Financial Resource Strain (CARDIA) Difficulty of Paying Living Expenses: Hard Food Insecurity: No Food Insecurity (02/19/2020) Received from [facility] Hunger Vital Sign Worried About Running Out of Food in the Last Year: Never true Ran Out of Food in the Last Year: Never true Transportation Needs: No Transportation Needs (02/19/2020) Received from [facility] PRAPARE - Transportation Lack of Transportation (Medical): No Lack of Transportation (Non-Medical): No Physical Activity: Insufficiently Active (01/27/2020) Received from [facility] Exercise Vital Sign Days of Exercise per Week: 2 days Minutes of Exercise per Session: 20 min Stress: No Stress Concern Present (01/27/2020) Received from [facility] [place] [facility] - Occupational Stress Questionnaire Feeling of Stress : Only a little Social Connections: Moderately Isolated (01/27/2020) Received from [facility], [facility] Social Connection and Isolation Panel [NHANES] Frequency of Communication with Friends and Family: More than three times a week Frequency of Social Gatherings with Friends and Family: Twice a week Attends Evangelical Services: Never Active Member of Clubs or Organizations: No Attends Club or Organization Meetings: Never Marital Status: Housing Stability: Low Risk (01/27/2020) Received from [facility], [facility] Housing Stability Vital Sign Unable to [...] TAKE WI (more content not included)... Normal [facility] Chloride [Moles/Vol] 104 mmol/L Normal 98-108 [facility] Comment on above: Order Comment: Injur y/Trauma or Illness?:Illness/Other How long have you had these symptoms (acute/chronic)?:Acute Reason for exam?:sudden onset of lower abd and right sided back pain in the night hx of ovarian cyst and endometreosis Type of Exam?:Initial Additional signs and symptoms?:na CO2 [Moles/Vol] 26 mmol/L Normal 21-32 [facility] Comment on above: Order Comment: Injur y/Trauma or Illness?:Illness/Other How long have you had these symptoms (acute/chronic)?:Acute Reason for exam?:sudden onset of lower abd and right sided back pain in the night hx of ovarian cyst and endometreosis Type of Exam?:Initial Additional signs and symptoms?:na Creatinine [Mass/Vol] 0.64 mg/dL Normal 0.40-1.10 [facility] Comment on above: Order Comment: Injur y/Trauma or Illness?:Illness/Other How long have you had these symptoms (acute/chronic)?:Acute Reason for exam?:sudden onset of lower abd and right sided back pain in the night hx of ovarian cyst and endometreosis Type of Exam?:Initial Additional signs and symptoms?:na Glucose [Mass/Vol] 108 mg/dL High 65-99 [facility] Comment on above: Order Comment: Injur y/Trauma or Illness?:Illness/Other How long have you had these symptoms (acute/chronic)?:Acute Reason for exam?:sudden onset of lower abd and right sided back pain in the night hx of ovarian cyst and endometreosis Type of Exam?:Initial Additional signs and symptoms?:na POC GFR 118 mL/min/1.73 m2 Normal >=60 [facility] Comment on above: [...] POC IONIZED CALCIUM 4.9 mg/dL Normal 4.5-5.3 [facility] Comment on above: Order Comment: Injur y/Trauma or Illness?:Illness/Other How long have you had these symptoms (acute/chronic)?:Acute Reason for exam?:sudden onset of lower abd and right sided back pain in the night hx of ovarian cyst and endometreosis Type of Exam?:Initial Additional signs and symptoms?:na Potassium [Moles/Vol] 3.8 mmol/L Normal 3.5-5.1 [facility] Comment on above: Order Comment: Injur y/Trauma or Illness?:Illness/Other How long have you had these symptoms (acute/chronic)?:Acute Reason for exam?:sudden onset of lower abd and right sided back pain in the night hx of ovarian cyst and endometreosis Type of Exam?:Initial Additional signs and symptoms?:na Sodium [Moles/Vol] 142 mmol/L Normal 135-145 [facility] Comment on above: Order Comment: Injur y/Trauma or Illness?:Illness/Other How long have you had these symptoms (acute/chronic)?:Acute Reason for exam?:sudden onset of lower abd and right sided back pain in the night hx of ovarian cyst and endometreosis Type of Exam?:Initial Additional signs and symptoms?:na Urea nitrogen [Mass/Vol] 8 mg/dL Normal 8-25 [facility] Comment on above: Order Comment: Injur y/Trauma or Illness?:Illness/Other How long have you had these symptoms (acute/chronic)?:Acute Reason for exam?:sudden onset of lower abd and right sided back pain in the night hx of ovarian cyst and endometreosis Type of Exam?:Initial Additional signs and symptoms?:na POC CBC AND DIFFERENTIALon 1 BASOPHILS ABSOLUTE COUNT 0.02 K/mcL Normal 0.00-0.30 [facility] Basophils/100 WBC (Bld) 0.4 % Normal [facility] Eosinophils (Bld) [#/Vol] 0.22 10*3/uL Normal 0.00-0.50 [facility] Eosinophils/100 WBC (Bld) 4.8 % Normal [facility] Erythrocyte distribution width (RBC) [Ratio] 12.8 % Normal 11.6-14.8 [facility] Hematocrit (Bld) [Volume fraction] 42.6 % Normal 36.0-46.0 [facility] Hemoglobin (Bld) [Mass/Vol] 14.2 g/dL Normal 12.0-16.0 [facility] IG ABSOLUTE 0.01 K/mcL Normal 0.00-0.30 [facility] IG PERCENT 0.20 % Normal [facility] Comment on above: Result Comment: The IG parameter is the percentage of metamyelocytes, myelocytes and promyelocytes. An immature granulocyte count (IG) of 1% or more suggests the possibility of infection, an IG count of 3% is very likely related to an infection. Lymphocytes (Bld) [#/Vol] 1.47 10*3/uL Normal 0.90-4.00 [facility] Lymphocytes/100 WBC (Bld) 32.0 % Normal [facility] MCH (RBC) [Entitic mass] 28.7 pg Normal 26.0-34.0 [facility] MCV (RBC) [Entitic vol] 86.1 fL Normal 80.0-100.0 [facility] MEAN CORPUSCULAR HEMOGLOBIN CONC 33.3 g/dL Normal 31.0-37.0 [facility] Monocytes (Bld) [#/Vol] 0.43 10*3/uL Normal 0.30-0.90 [facility] Monocytes/100 WBC (Bld) 9.4 % Normal [facility] NEUTROPHILS ABSOLUTE COUNT 2.44 K/mcL Normal 1.70-7.00 [facility] Neutrophils/100 WBC (Bld) 53.2 % Normal [facility] Platelet mean volume (Bld) [Entitic vol] 10.8 fL Normal 9.4-12.4 [facility] Platelets (Bld) [#/Vol] 149 10*3/uL Low 150-400 [facility] RBC (Bld) [#/Vol] 4.95 10*6/uL Normal 4.00-5.20 [facility] WBC (Bld) [#/Vol] 4.59 10*3/uL Normal 4.50-11.00 [facility] POC PT-INR - Seda 03-11-20 24 POC INR (SIG ELITE) 1.4 High 0.8-1.1 [facility] ED Prov Noteon 03-07-2024 ED [...] are negative. PAST HISTORY Past Medical History: @[facility]@ Past Surgical History: has a past surgical [...] degrees C) (Oral) Resp 18 Ht 5' 6" Wt 104.3 kg (230 lb) LMP 02/04/2022 [...] left wrist (more content not included)... Normal [facility] ED Prov Noteon 03-04-2024 ED Prov Note [place] ED Physician Note: NAME: Lana Rivera 38 y.o. CSN: [id number] PCP: Aleena London MD ED Course / [...] right Disposition: Patient is being discharged to home\\ History: Chief Complaint: Wrist Pain and Leg [...] Resource Strain: High Risk (02/19/2020) Received from [facility] Overall Financial Resource Strain (CARDIA) Difficulty of Paying Living Expenses: Hard Food Insecurity: No Food Insecurity (02/19/2020) Received from [facility] Hunger Vital Sign Worried About Running Out of Food in the Last Year: Never true Ran Out of Food in the Last Year: Never true Transportation Needs: No Transportation Needs (02/19/2020) Received from [facility] PRAPARE - Transportation Lack of Transportation (Medical): No Lack of Transportation (Non-Medical): No Physical Activity: Insufficiently Active (01/27/2020) Received from [facility] Exercise Vital Sign Days of Exercise per Week: 2 days Minutes of Exercise per Session: 20 min Stress: No Stress Concern Present (01/27/2020) Received from [facility] [place] [facility] [employer] - Occupational Stress Questionnaire Feeling of Stress : Only a little Social Connections: Moderately Isolated (01/27/2020) Received from [facility] Social Connection and Isolation Panel [NHANES] Frequency of Communication with Friends and Family: More than three times a week Frequency of Social Gatherings with Friends and Family: Twice a week Attends Evangelical Services: Never Active Member of Clubs or Organizations: No Attends Club or Organization Meetings: Never Marital Status: Housing Stability: Low Risk (01/27/2020) Received from [facility], [facility] Housing Stability Vital Sign Unable to [...] a day as (more content not included)... [facility] XR FOREARM LEFT 2 VIEWSon XR FOREARM [...] ulnar shaft fractures with intact fixation hardware. /[facility] Workstation ID: [id number] Dictated by: JOHANNA MARCH on MonMar 04, 2024 1:11:34 PM EDT Transcribed by: FLO MOSS on MonMar 04, 2024 1:13:46 PM EDT Finalized by: JOHANNA MARCH on MonMar 04, 2024 10:23:51 PM EDT [facility] Comment on above: Order Comment: Injur y/Trauma [...] normal limits. IMPRESSION: No acute osseous abnormality. [facility] Workstation ID: [id number] Dictated by: JOHANNA MARCH on MonMar 04, 2024 1:16:35 PM EDT Transcribed by: FLO MOSS on MonMar 04, 2024 1:21:46 PM EDT Finalized by: JOHANNA MARCH on MonMar 04, 2024 10:23:57 PM EDT [facility] Comment on above: Order Comment: Injur y/Trauma [...] normal limits. IMPRESSION: No acute osseous abnormality. [facility] Workstation ID: [id number] Dictated by: JOHANNA MARCH on MonMar 04, 2024 1:13:20 PM EDT Transcribed by: FLO MOSS on MonMar 04, 2024 1:17:08 PM EDT Finalized by: JOHANNA MARCH on MonMar 04, 2024 10:27:17 PM EDT [facility] Comment on above: Order Comment: Injur y/Trauma or Illness?:Illness/Other How long have you had these symptoms (acute/chronic)?:Acute Reason for exam?:sudden onset of lower abd and right sided back pain in the night hx of ovarian cyst and endometreosis Type of Exam?:Initial Additional signs and symptoms?:na ED Prov Noteon 02-23-2024 ED Prov Note [facility] EMERGENCY DEPARTMENT ATTENDING NOTE: NAME: Lana Rivera CSN: [id number] 38 y.o. PCP: Aleena London MD History: [...] of Percocet until she may follow-up with [employer]. After reviewing the items above, I [...] C) Oral 78 16 100 % 5' 6" 104.3 kg (230 lb) Physical Exam Vitals [...] Vaping Use (more content not included)... Normal [facility] CT ABDOMEN PELVIS WITH IV [...] on MonFeb 20, 2024 11:00:04 AM EDT [facility] Comment on above: Order Comment: Injur y/Trauma or Illness?:Illness/Other How long have you had these symptoms (acute/chronic)?:Acute Reason for exam?:lower GI bleed with abd pain Type of Exam?:Initial Additional signs and symptoms?:na ED Prov Noteon 02-20-2024 ED Prov Note ED PROVIDER NOTE [facility] EMERGENCY DEPARTMENT NAME: Lana Rivera AGE: 38 y.o. : 1985 VISIT DATE: 02/20/2024 CSN: [id number] PCP: Aleena London MD Chief Complaint Patient [...] Resource Strain: High Risk (02/19/2020) Received from [facility] Overall Financial Resource Strain (CARDIA) Difficulty of Paying Living Expenses: Hard Food Insecurity: No Food Insecurity (02/19/2020) Received from [facility] Hunger Vital Sign Worried About Running Out of Food in the Last Year: Never true Ran Out of Food in the Last Year: Never true Transportation Needs: No Transportation Needs (02/19/2020) Received from [facility] PRAPARE - Transportation Lack of Transportation (Medical): No Lack of Transportation (Non-Medical): No Physical Activity: Insufficiently Active (01/27/2020) Received from [facility] Exercise Vital Sign Days of Exercise per Week: 2 days Minutes of Exercise per Session: 20 min Stress: No Stress Concern Present (01/27/2020) Received from [facility] [place] [facility] [employer] [facility] - Occupational Stress Questionnaire Feeling of Stress : Only a little Social Connections: Moderately Isolated (01/27/2020) Received from [facility] Social Connection and Isolation Panel [NHANES] Frequency of Communication with Friends and Family: More than three times a week Frequency of Social Gatherings with Friends and Family: Twice a week Attends Evangelical Services: Never Active Member of Clubs or Organizations: No Attends Club or Organization Meetings: Never Marital Status: Housing Stability: Low Risk (01/27/2020) Received from [facility] Housing Stability Vital Sign Unable to Pay [...] Allergies Allergen Reactions Hydrocodone Unknown Irritable before bedtime", would take it during the day. Latex Penicillins Toradol [Ketorolac] Vicodin [Hydrocodone-Acetaminop hen] Other (See Comments) Insomnia Dicyclomine GI Intolerance and Unknown Naproxen Other (See Comments) and Hives Allergy since a child Promethazine Unknown Review of Systems All other systems revie (more content not included)... Normal [facility] POC CBC AND DIFFERENTIALon 1 BASOPHILS ABSOLUTE COUNT 0.03 K/mcL Normal 0.00-0.30 [facility] Basophils/100 WBC (Bld) 0.7 % Normal [facility] Eosinophils (Bld) [#/Vol] 0.17 10*3/uL Normal 0.00-0.50 [facility] Eosinophils/100 WBC (Bld) 3.9 % Normal [facility] Erythrocyte distribution width (RBC) [Ratio] 13.2 % Normal 11.6-14.8 [facility] Hematocrit (Bld) [Volume fraction] 42.1 % Normal 36.0-46.0 [facility] Hemoglobin (Bld) [Mass/Vol] 13.9 g/dL Normal 12.0-16.0 [facility] IG ABSOLUTE 0.02 K/mcL Normal 0.00-0.30 [facility] IG PERCENT 0.50 % Normal [facility] Comment on above: Result Comment: The IG parameter is the percentage of metamyelocytes, myelocytes and promyelocytes. An immature granulocyte count (IG) of 1% or more suggests the possibility of infection, an IG count of 3% is very likely related to an infection. Lymphocytes (Bld) [#/Vol] 1.20 10*3/uL Normal 0.90-4.00 [facility] Lymphocytes/100 WBC (Bld) 27.8 % Normal [facility] MCH (RBC) [Entitic mass] 28.6 pg Normal 26.0-34.0 [facility] MCV (RBC) [Entitic vol] 86.6 fL Normal 80.0-100.0 [facility] MEAN CORPUSCULAR HEMOGLOBIN CONC 33.0 g/dL Normal 31.0-37.0 [facility] Monocytes (Bld) [#/Vol] 0.39 10*3/uL Normal 0.30-0.90 [facility] Monocytes/100 WBC (Bld) 9.0 % Normal [facility] NEUTROPHILS ABSOLUTE COUNT 2.51 K/mcL Normal 1.70-7.00 [facility] Neutrophils/100 WBC (Bld) 58.1 % Normal [facility] Platelet mean volume (Bld) [Entitic vol] 11.0 fL Normal 9.4-12.4 [facility] Platelets (Bld) [#/Vol] 161 10*3/uL Normal 150-400 [facility] RBC (Bld) [#/Vol] 4.86 10*6/uL Normal 4.00-5.20 [facility] WBC (Bld) [#/Vol] 4.32 10*3/uL Low 4.50-11.00 [facility] POC LIVER PANEL PLUS Seda 02-20-2024 Albumin [Mass/Vol] 4.0 g/dL Normal 3.2-5.2 [facility] ALP [Catalytic activity/Vol] 52 U/L Normal 40-140 [facility] ALT [Catalytic activity/Vol] 29 U/L Normal 0-40 [facility] Amylase [Catalytic activity/Vol] 26 U/L Normal 25-115 [facility] Amylase [Catalytic activity/Vol] 16 U/L Normal 7-33 [facility] AST [Catalytic activity/Vol] 25 U/L Normal 0-45 [facility] Bilirubin [Mass/Vol] 0.7 mg/dL Normal 0.0-1.3 [facility] Protein [Mass/Vol] 6.8 g/dL Normal 6.0-8.0 [facility] HCG ( test) Ql (U) Negative Normal Negative [facility] Comment on above: Order Comment: Negat jimmie: Dilute urine specimens, as indicated by a low specific gravity (<1.010) may not contain representitive levels of hCG. If is still suspected, a serum test or repeat urine test using a first morning urine specimen should be considered. POC PT-INR - [facility] 02-20-20 24 POC INR (SIG ELITE) 1.7 High 0.8-1.1 [facility] POC URINALYSIS DIPSTICK,AUTO - [facility] 02-20-2024 POC BILIRUBIN, URINE Negative Normal Negative [facility] POC BLOOD, URINE Negative Normal Negative [facility] POC GLUCOSE, URINE Negative Normal Negative [facility] POC KETONES, URINE Negative Normal Negative [facility] POC LEUKOCYTE ESTERASE, URINE Negative Normal Negative [facility] POC NITRITE, URINE Negative Normal Negative [facility] POC PH, URINE 7.0 Normal 5.0-7.0 [facility] POC PROTEIN, URINE Negative Normal Negative [facility] POC SPECIFIC GRAVITY 1.020 Normal 1.005-1.025 [facility] POC UROBILINOGEN 0.2 mg/dL Normal < 2.0 [facility] POC VBG (EPOC) WITH FULL BARNES EL [facility] 02-20-2024 BASE EXCESS, VENOUS -0.6 Normal -2.0-2.0 [facility] Comment on above: Order Comment: Negat jimmie: Dilute urine specimens, as indicated by a low specific gravity (<1.010) may not contain representitive levels of hCG. If is still suspected, a serum test or repeat urine test using a first morning urine specimen should be considered. CALCIUM IONIZED 4.7 mg/dL Normal 4.5-5.3 [facility] Comment on above: Order Comment: Negat jimmie: Dilute urine specimens, as indicated by a low specific gravity (<1.010) may not contain representitive levels of hCG. If is still suspected, a serum test or repeat urine test using a first morning urine specimen should be considered. Chloride [Moles/Vol] 105 mmol/L Normal 98-108 [facility] Comment on above: Order Comment: Negat jimmie: Dilute urine specimens, as indicated by a low specific gravity (<1.010) may not contain representitive levels of hCG. If is still suspected, a serum test or repeat urine test using a first morning urine specimen should be considered. Creatinine [Mass/Vol] 0.73 mg/dL Normal 0.40-1.10 [facility] Comment on above: Order Comment: Negat jimmie: Dilute urine specimens, as indicated by a low specific gravity (<1.010) may not contain representitive levels of hCG. If is still suspected, a serum test or repeat urine test using a first morning urine specimen should be considered. Glucose [Mass/Vol] 117 mg/dL High 65-99 [facility] Comment on above: Order Comment: Negat jimmie: Dilute urine specimens, as indicated by a low specific gravity (<1.010) may not contain representitive levels of hCG. If is still suspected, a serum test or repeat urine test using a first morning urine specimen should be considered. HCO3 (Bld) [Moles/Vol] 24.9 mmol/L Normal 24.0-28.0 [facility] Comment on above: Order Comment: Negat jimmie: Dilute urine specimens, as indicated by a low specific gravity (<1.010) may not contain representitive levels of hCG. If is still suspected, a serum test or repeat urine test using a first morning urine specimen should be considered. Hematocrit (Bld) [Volume fraction] 42 % Normal 36-46 [facility] Comment on above: Order Comment: Negat jimmie: Dilute urine specimens, as indicated by a low specific gravity (<1.010) may not contain representitive levels of hCG. If is still suspected, a serum test or repeat urine test using a first morning urine specimen should be considered. HEMOGLOBIN, CALCULATED 14.2 g/dL Normal 12.0-16.0 [facility] Comment on above: Order Comment: Negat jimmie: Dilute urine specimens, as indicated by a low specific gravity (<1.010) may not contain representitive levels of hCG. If is still suspected, a serum test or repeat urine test using a first morning urine specimen should be considered. Oxygen saturation in Blood 55.2 % Normal 40.0-70.0 [facility] Comment on above: Order Comment: Negat jimmie: Dilute urine specimens, as indicated by a low specific gravity (<1.010) may not contain representitive levels of hCG. If is still suspected, a serum test or repeat urine test using a first morning urine specimen should be considered. PCO2 VENOUS 43.0 mm Hg Normal 41.0-51.0 [facility] Comment on above: Order Comment: Negat jimmie: Dilute urine specimens, as indicated by a low specific gravity (<1.010) may not contain representitive levels of hCG. If is still suspected, a serum test or repeat urine test using a first morning urine specimen should be considered. PH VENOUS 7.37 Normal 7.32-7.42 [facility] Comment on above: Order Comment: Negat jimmie: Dilute urine specimens, as indicated by a low specific gravity (<1.010) may not contain representitive levels of hCG. If is still suspected, a serum test or repeat urine test using a first morning urine specimen should be considered. PO2 VENOUS 30 mm Hg Normal 25-40 [facility] Comment on above: Order Comment: Negat jimmie: Dilute urine specimens, as indicated by a low specific gravity (<1.010) may not contain representitive levels of hCG. If is still suspected, a serum test or repeat urine test using a first morning urine specimen should be considered. POC GFR 109 mL/min/1.73 m2 Normal >=60 [facility] Comment on above: Order Comment: Negat jimmie: Dilute urine specimens, as indicated by a low specific gravity (<1.010) may not contain representitive levels of hCG. If is still suspected, a serum test or repeat urine test using a first morning urine specimen should be considered. Result Comment: Bria kent GFR was calculated using the 2020 CKD-EPI creatinine equation. POC LACTATE 1.3 mmol/L Normal 0.6-2.0 [facility] Comment on above: Order Comment: Negat jimmie: Dilute urine specimens, as indicated by a low specific gravity (<1.010) may not contain representitive levels of hCG. If is still suspected, a serum test or repeat urine test using a first morning urine specimen should be considered. Potassium [Moles/Vol] 3.9 mmol/L Normal 3.5-5.1 [facility] Comment on above: Order Comment: Negat jimmie: Dilute urine specimens, as indicated by a low specific gravity (<1.010) may not contain representitive levels of hCG. If is still suspected, a serum test or repeat urine test using a first morning urine specimen should be considered. Sodium [Moles/Vol] 139 mmol/L Normal 135-145 [facility] Comment on above: Order Comment: Negat jimmie: Dilute urine specimens, as indicated by a low specific gravity (<1.010) may not contain representitive levels of hCG. If is still suspected, a serum test or repeat urine test using a first morning urine specimen should be considered. Urea nitrogen [Mass/Vol] 8 mg/dL Normal 8-25 [facility] Comment on above: Order Comment: Negat jimmie: Dilute urine specimens, as indicated by a low specific gravity (<1.010) may not contain representitive levels of hCG. If is still suspected, a serum test or repeat urine test using a first morning urine specimen should be considered. ED Prov Noteon 02-14-2024 ED Prov Note HPI: 02/14/2024, Time: @LIZZ@ Lana Desai Ronnell is a [...] are negative. PAST HISTORY Past Medical History: @[facility]@ Past Surgical History: has a past surgical [...] (37.1 degrees C) Resp 18 Ht 5' 6" Wt 104.3 kg (230 lb) LMP 02/04/2022 [...] 3) . Follow-up: Aleena London MD [id number] [facility] [id number] In 3 days Final Impression: 1. Right ovarian cyst (Please note that portions of this note were completed with a voice recognition program. Efforts were made to edit the dictations but occasionally words are mis-transcribed.) Libertad Foster MD 02/14/24 1221 AUTHENTICATED BY LIBERTAD FOSTER, ON 02/14/2024 12:21:14 [facility] ED Prov Noteon 02-11-2024 ED Prov Note ED PROVIDER NOTE [facility] EMERGENCY DEPARTMENT NAME: Lana Rivera AGE: 38 y.o. : 1985 VISIT DATE: 02/11/2024 CSN: [id number] PCP: Aleena London MD Chief Complaint Patient [...] Resource Strain: High Risk (02/19/2020) Received from [facility] Overall Financial Resource Strain (CARDIA) Difficulty of Paying Living Expenses: Hard Food Insecurity: No Food Insecurity (02/19/2020) Received from [facility] Hunger Vital Sign Worried About Running Out of Food in the Last Year: Never true Ran Out of Food in the Last Year: Never true Transportation Needs: No Transportation Needs (02/19/2020) Received from [facility] PRAPARE - Transportation Lack of Transportation (Medical): No Lack of Transportation (Non-Medical): No Physical Activity: Insufficiently Active (01/27/2020) Received from [facility] Exercise Vital Sign Days of Exercise per Week: 2 days Minutes of Exercise per Session: 20 min Stress: No Stress Concern Present (01/27/2020) Received from [facility] [place] [facility] [employer] - Occupational Stress Questionnaire Feeling of Stress : Only a little Social Connections: Moderately Isolated (01/27/2020) Received from [facility] Social Connection and Isolation Panel [NHANES] Frequency of Communication with Friends and Family: More than three times a week Frequency of Social Gatherings with Friends and Family: Twice a week Attends Evangelical Services: Never Active Member of Clubs or Organizations: No Attends Club or Organization Meetings: Never Marital Status: Housing Stability: Low Risk (01/27/2020) Received from [facility] Housing Stability Vital Sign Unable to Pay [...] Allergies Allergen Reactions Hydrocodone Unknown Irritable before bedtime", would take it during the day. Latex Penicillins Toradol [Ketorolac] Vicodin [Hydrocodone-Acetaminop hen] Other (See Comments) Insomnia Dicyclomine GI Intolerance and Unknown Naproxen Other (See Comments) and Hives Allergy since a child Promethazine Unknown Review of Systems Constitutional: Negative for fatigue. Psychiatric/Behavioral: The patient is ner (more content not included)... [facility] ED Prov Noteon 01-29-2024 ED Prov Note ED PROVIDER NOTE [facility] EMERGENCY DEPARTMENT NAME: Lana Rivera AGE: 38 y.o. : 1985 VISIT DATE: 01/29/2024 CSN: [id number] PCP: Aleena London MD Chief Complaint Patient [...] Resource Strain: High Risk (02/19/2020) Received from [facility] Overall Financial Resource Strain (CARDIA) Difficulty of Paying Living Expenses: Hard Food Insecurity: No Food Insecurity (02/19/2020) Received from [facility] Hunger Vital Sign Worried About Running Out of Food in the Last Year: Never true Ran Out of Food in the Last Year: Never true Transportation Needs: No Transportation Needs (02/19/2020) Received from [facility] PRAPARE - Transportation Lack of Transportation (Medical): No Lack of Transportation (Non-Medical): No Physical Activity: Insufficiently Active (01/27/2020) Received from [facility] Exercise Vital Sign Days of Exercise per Week: 2 days Minutes of Exercise per Session: 20 min Stress: No Stress Concern Present (01/27/2020) Received from [facility] [place] [facility] Occupational [facility] - Occupational Stress Questionnaire Feeling of Stress : Only a little Social Connections: Moderately Isolated (01/27/2020) Received from [facility] Social Connection and Isolation Panel [NHANES] Frequency of Communication with Friends and Family: More than three times a week Frequency of Social Gatherings with Friends and Family: Twice a week Attends Evangelical Services: Never Active Member of Clubs or Organizations: No Attends Club or Organization Meetings: Never Marital Status: Housing Stability: Low Risk (01/27/2020) Received from [facility] Housing Stability Vital Sign Unable to Pay [...] Dizzy and headache Hydrocodone Unknown Irritable before bedtime", would take it during the day. Latex Penicillins Toradol [Ketorolac] Vicodin [Hydrocodone-Acetaminop hen] Other (See Comments) In (more content not included)... Normal [facility] COVID-19, MOLECULARon 2023 SARS-CoV-2 (COVID-19) Ab IA Ql Not detected Normal Not Detected [facility] Comment on above: Result Comment: [...] Dizzy and headache Hydrocodone Unknown Irritable before bedtime", would take it during the day. Latex [...] supply per fill: (more content not included)... [facility] XR CHEST PA/APon 01-16-2024 XR CHEST PA/AP [...] No evidence of pneumonia. No acute findings. [facility] Workstation ID: [id number] Dictated by: SHILPI PATEL on MonJan 16, 2024 1:10:19 PM EDT Transcribed by: OLY TINAJERO on MonJan 16, 2024 1:25:31 PM EDT Finalized by: SHILPI PATEL on MonJan 16, 2024 4:29:21 PM EDT [facility] Comment on above: Order Comment: Injur y/Trauma [...] on MonJan 16, 2024 4:29:26 PM EDT [facility] Comment on above: Order Comment: Injur y/Trauma or Illness?:Illness/Other How long have you had these symptoms (acute/chronic)?:Acute Reason for exam?:lower GI bleed with abd pain Type of Exam?:Initial Additional signs and symptoms?:na ED Prov Noteon 01-07-2024 ED Prov Note ED PROVIDER NOTE [facility] EMERGENCY DEPARTMENT NAME: Lana Rivera AGE: 38 y.o. 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 the other day and picked [...] Resource Strain: High Risk (02/19/2020) Received from [facility] Overall Financial Resource Strain (CARDIA) Difficulty of Paying Living Expenses: Hard Food Insecurity: No Food Insecurity (02/19/2020) Received from [facility] Hunger Vital Sign Worried About Running Out of Food in the Last Year: Never true Ran Out of Food in the Last Year: Never true Transportation Needs: No Transportation Needs (02/19/2020) Received from [facility] PRAPARE - Transportation Lack of Transportation (Medical): No Lack of Transportation (Non-Medical): No Physical Activity: Insufficiently Active (01/27/2020) Received from [facility] Exercise Vital Sign Days of Exercise per Week: 2 days Minutes of Exercise per Session: 20 min Stress: No Stress Concern Present (01/27/2020) Received from [facility] [place] of Occupational Health - Occupational Stress Questionnaire Feeling of Stress : Only a little Social Connections: Moderately Isolated (01/27/2020) Received from [facility] Social Connection and Isolation Panel [NHANES] Frequency of Communication with Friends and Family: More than three times a week Frequency of Social Gatherings with Friends and Family: Twice a week Attends Evangelical Services: Never Active Member of Clubs or Organizations: No Attends Club or Organization Meetings: Never Marital Status: Housing Stability: Low Risk (01/27/2020) Received from [facility] Housing Stability Vital Sign Unable to Pay [...] Dizzy and headache Hydrocodone Unknown Irritable before bedtime", would take it during the day. Latex [...] F (37.4 deg (more content not included)... Normal [facility] XR SHOULDER LEFT 2+ VIEWS [...] ID: [id number] Dictated by: BELKYS KITCHEN on [place] Jan 07, 2024 8:59:23 AM EDT Transcribed by: BELKYS KITCHEN on [place] Jan 07, 2024 8:59:23 AM EDT Finalized by: BELKYS KITCHEN on [place] Jan 07, 2024 8:59:23 AM EDT [facility] Comment on above: Order Comment: Injur y/Trauma or Illness?:Illness/Other How long have you had these symptoms (acute/chronic)?:Acute Reason for exam?:sudden onset of lower abd and right sided back pain in the night hx of ovarian cyst and endometreosis Type of Exam?:Initial Additional signs and symptoms?:na ED Prov Noteon 12-01-2023 ED Prov Note ED PROVIDER NOTE [facility] EMERGENCY DEPARTMENT NAME: Lana Rivera AGE: 38 y.o. : 1985 VISIT DATE: 12/01/2023 CSN: [id number] PCP: Aleena London MD Chief Complaint Patient [...] Resource Strain: High Risk (02/19/2020) Received from [facility] Overall Financial Resource Strain (CARDIA) Difficulty of Paying Living Expenses: Hard Food Insecurity: No Food Insecurity (02/19/2020) Received from [facility] Hunger Vital Sign Worried About Running Out of Food in the Last Year: Never true Ran Out of Food in the Last Year: Never true Transportation Needs: No Transportation Needs (02/19/2020) Received from [facility] PRAPARE - Transportation Lack of Transportation (Medical): No Lack of Transportation (Non-Medical): No Physical Activity: Insufficiently Active (01/27/2020) Received from [facility] Exercise Vital Sign Days of Exercise per Week: 2 days Minutes of Exercise per Session: 20 min Stress: No Stress Concern Present (01/27/2020) Received from [facility] [place] of Occupational Health - Occupational Stress Questionnaire Feeling of Stress : Only a little Social Connections: Moderately Isolated (01/27/2020) Received from [facility] Social Connection and Isolation Panel [NHANES] Frequency of Communication with Friends and Family: More than three times a week Frequency of Social Gatherings with Friends and Family: Twice a week Attends Evangelical Services: Never Active Member of Clubs or Organizations: No Attends Club or Organization Meetings: Never Marital Status: Housing Stability: Low Risk (01/27/2020) Received from [facility] Housing Stability Vital Sign Unable to Pay for Housing in the Last Year: No Number of Places Lived in the Last Year: 1 In the last 12 months, was there a time when you did not have a steady place to sleep or slept in a assisted (including now)?: No Previous Medications Medication Sig [...] a child Promet (more content not included)... [facility] XR ANKLE RIGHT 3+ VIEWS (STA NDARD)on [...] normal limits. IMPRESSION: No acute osseous abnormality. [facility] Workstation ID: [id number] Dictated by: JOHANNA MARCH on MonDec 01, 2023 1:52:10 PM EDT Transcribed by: CATINA NIETO on MonDec 01, 2023 2:05:31 PM EDT Finalized by: JOHANNA MARCH on MonDec 01, 2023 4:58:59 PM EDT [facility] Comment on above: Order Comment: Injur y/Trauma or Illness?:Illness/Other How long have you had these symptoms (acute/chronic)?:Acute Reason for exam?:lower GI bleed with abd pain Type of Exam?:Initial Additional signs and symptoms?:na ED Prov Noteon 11-25-2023 ED Prov Note HPI: 11/25/2023, Time: @LIZZ@ Lana Rivera is a 38 [...] are negative. PAST HISTORY Past Medical History: @[facility]@ Past Surgical History: has a past surgical [...] radiopaque foreign body in the right foot. [employer] Workstation ID: [id number] -- NURSING NOTES AND VITALS REVIEWED ---- The nursing notes within the ED encounter and vital signs as below have been reviewed. BP (!) 125/101 (BP Location: Left arm, Patient Position: Sitting) Pulse 96 Temp 99.9 degrees F (37.7 degrees C) (Temporal) Resp 16 Ht 5' 6" Wt 104.3 kg (230 lb) LMP 02/04/2022 [...] disc disease, will provide short course of [place] for pain and patient to continue ketoprofen [...] total) by mouth (more content not included)... [facility] XR FOOT RIGHT 3+ VIEWS (MOI WELDON)on [...] radiopaque foreign body in the right foot. [employer] Workstation ID: [id number] Dictated by: GREYSON SCHROEDER on [facility] Nov 25, 2023 9:36:41 AM EDT Transcribed by: KENNY ARRIAGA on [facility] Nov 25, 2023 9:39:36 AM EDT Finalized by: GREYSON SCHROEDER on [facility] Nov 25, 2023 10:29:24 AM EDT [facility] Comment on above: Order Comment: Injur y/Trauma or Illness?:Illness/Other How long have you had these symptoms (acute/chronic)?:Acute Reason for exam?:sudden onset of lower abd and right sided back pain in the night hx of ovarian cyst and endometreosis Type of Exam?:Initial Additional signs and symptoms?:na Absolute lymphocyte countOrd ered By: Sorin Jacobs on 09-29-2023 Lymphocytes Auto (Unsp spec) [#/Vol] 1.56 10*3/uL 0.83-4.51 [facility] Automated lymphocyte count a s percentage of total leukocytesOrdered By: Sorin Jacobs on 09-29-2023 Lymphocytes/100 WBC Auto (Unsp spec) 26.8 % 19-41 [facility] Basophil percentageOrdered B y: Sorin Jacobs on 09-29-2023 Basophil percentage 14.4 g/dL 12.0-15.0 [facility] Basophils (Bld) [#/Vol] 5.8 10*3/uL 4.4-11.0 [facility] Basophils (Bld) [#/Vol] 3.5 10*3/uL 2.0-7.7 [facility] Basophils/100 WBC (Bld) 59.6 % 47-70 [facility] Basophils/100 WBC (Bld) 9.4 % 0-10 [facility] Basophils/100 WBC (Bld) 3.4 % 0-5 [facility] Basophils/100 WBC (Bld) 0.5 % 0-1 [facility] Determination of erythrocyte mean corpuscular volume (MCV)Ordered By: Sorin Jacobs on 09-29-2023 MCV (RBC) [Entitic vol] 86.0 fL 81-99 [facility] Erythrocyte distribution wid th ratioOrdered By: Sorinautumn Jacobs on 09-29-2023 Erythrocyte distribution width (RBC) [Ratio] 13.2 % 11.6-14.6 [facility] Erythrocyte distribution wid th standard deviationOrdered By: Sorin Jacobs on 09-29-2023 Erythrocyte distribution width (RBC) [Entitic vol] 41.2 fL 35.1-43.9 [facility] Hematocrit Auto (Bld) [Volum e fraction]Ordered By: Sorin Jacobs on 09-29-2023 Hematocrit (Bld) [Volume fraction] 44.4 % 37-47 [facility] Immature granulocytes/100 WB C Auto (Bld)Ordered By: Sorinautumn Jacobs on 09-29-2023 Immature granulocytes/100 WBC (Bld) 0.300 % 0.0-0.9 [facility] No Panel InformationOrdered By: Sorinautumn Jacobs on 09-29-2023 27.9 pg 27.0-32.0 [facility] 32.4 g/dL 32-36 [facility] 173 K/mm3 150-450 [facility] 10.6 fl 6.2-12.0 [facility] 0 % 0-5 [facility] RBC Auto (Bld) [#/Vol]Ordere d By: Sorin Jacobs on 09-29-2023 RBC (Bld) [#/Vol] 5.16 10*6/uL 4.2-5.4 [facility] Throat specimen bacteria gregorio ntification by cultureOrdered By: Oscar Fuller on 09-21-2023 Bacteria identified Cx Nom (Throat) streptococcus isolated. [facility] Rapid group A Streptococcus screen at point of careon 09-14-2023 S. pyogenes Ag IA.rapid Ql (Throat) Negative [facility] Absolute lymphocyte countOrd ered By: Irving Lobato on 09-05-2023 Lymphocytes Auto (Unsp spec) [#/Vol] 1.28 10*3/uL 0.83-4.51 [facility] Automated lymphocyte count a s percentage of total leukocytesOrdered By: Irving Lobato on 09-05-2023 Lymphocytes/100 WBC Auto (Unsp spec) 27.5 % 19-41 [facility] Basophil percentageOrdered B y: Irving Lobato on 09-05-2023 Basophil percentage 13.7 g/dL 12.0-15.0 [facility] Basophil percentage 109 mg/dL 74-106 [facility] Basophil percentage 7.1 g/dL 6.4-8.2 [facility] Basophil percentage 0.30 mg/dL 0.20-1.00 [facility] Basophil percentage 139 mmol/L 136-145 [facility] Basophil percentage 3.7 mmol/L 3.5-5.1 [facility] Basophil percentage 108 mmol/L 98-107 [facility] Basophils (Bld) [#/Vol] 4.7 10*3/uL 4.4-11.0 [facility] Basophils (Bld) [#/Vol] 2.7 10*3/uL 2.0-7.7 [facility] Basophils/100 WBC (Bld) 57.3 % 47-70 [facility] Basophils/100 WBC (Bld) 9.4 % 0-10 [facility] Basophils/100 WBC (Bld) 4.5 % 0-5 [facility] Basophils/100 WBC (Bld) 0.9 % 0-1 [facility] Chlamydia trachomatis rRNA d etection by probe and target amplification methodOrdered By: Diana Gunn on 09-05-2023 C. trachomatis rRNA JONE+probe Ql (Unsp spec) Negative Negative [facility] Determination of erythrocyte mean corpuscular volume (MCV)Ordered By: Irving Lobato on 09-05-2023 MCV (RBC) [Entitic vol] 83.8 fL 81-99 [facility] Erythrocyte distribution wid th ratioOrdered By: Irving Lobato on 09-05-2023 Erythrocyte distribution width (RBC) [Ratio] 12.6 % 11.6-14.6 [facility] Erythrocyte distribution wid th standard deviationOrdered By: Irving Lobato on 09-05-2023 Erythrocyte distribution width (RBC) [Entitic vol] 38.2 fL 35.1-43.9 [facility] Gram stain for investigation of transfusion reactionOrdered By: Diana Gunn on 09-05-2023 Microscopic observation Gram stain Nom (Unsp spec) [facility] HIV 1 and HIV-2 antibody ass ay with HIV-1 p24 antigen detectionOrdered By: Diana Gunn on 09-05-2023 HIV 1+2 Ab+HIV1 p24 Ag IA Ql Non-Reactive Nonreactive [facility] Hematocrit Auto (Bld) [Volum e fraction]Ordered By: Irving Lobato on 09-05-2023 Hematocrit (Bld) [Volume fraction] 41.0 % 37-47 [facility] Immature granulocytes/100 WB C Auto (Bld)Ordered By: Irving Lobato on 09-05-2023 Immature granulocytes/100 WBC (Bld) 0.400 % 0.0-0.9 [facility] No Panel InformationOrdered By: Diana Gunn on 09-05-2023 Negative Negative [facility] Yeast, not Chela albicans [facility] Non-Reactive Nonreactive [facility] No Panel InformationOrdered By: Irving Lobato on 09-05-2023 28.0 pg 27.0-32.0 [facility] 33.4 g/dL 32-36 [facility] 193 K/mm3 150-450 [facility] 10.9 fl 6.2-12.0 [facility] 0 % 0-5 [facility] 13.0 SECONDS 11.7-14.9 [facility] 1.0 [facility] 84 mL/min >60 [facility] 102 mL/min >60 [facility] 11.1 RATIO 10-20 [facility] 3.5 g/dL 2.2-4.2 [facility] 1.0 RATIO 0.9-2.4 [facility] 66 U/L 45-117 [facility] 24 U/L 13-56 [facility] 26.0 mmol/L 21.0-32.0 [facility] < 2.90 mg/L 0.0-3.0 [facility] 288 pg/mL 211-911 [facility] No Panel Informationon 09-04 Negative [facility] RBC Auto (Bld) [#/Vol]Ordere d By: Irving Lobato on 09-05-2023 RBC (Bld) [#/Vol] 4.89 10*6/uL 4.2-5.4 [facility] Serum Treponema species anti body detectionOrdered By: Diana Gunn on 09-05-2023 Treponema sp Ab Ql (S) Non-Reactive [facility] Serum or plasma calcium mg urement (mass/volume)Ordered By: Irving Lobato on 09-05-2023 Calcium [Mass/Vol] 8.5 mg/dL 8.5-10.1 [facility] Serum or plasma creatinine m easurement (mass/volume)Ordered By: Irving Lobato on 09-05-2023 Creatinine [Mass/Vol] 0.81 mg/dL 0.55-1.02 [facility] Serum or plasma thyroid stim ulating hormone (TSH) measurement (units/volume)Ordered By: Irving Lobato on 09-05-2023 TSH Qn 0.81 uIU/mL 0.358-3.74 [facility] Serum or plasma urea nitroge n measurement (mass/volume)Ordered By: Irving Lobato on 09-05-2023 Urea nitrogen [Mass/Vol] 9 mg/dL 7-18 [facility] Thin prep Papanicolaou smear with manual screeningOrdered By: Irving Lobato on 09-05-2023 Thin prep Papanicolaou smear with manual screening 3.6 g/dL 3.2-5.0 [facility] Thin prep Papanicolaou smear with manual screening 14 U/L 15-37 [facility] Thin prep Papanicolaou smear with manual screening 5 5-15 [facility] Thin prep Papanicolaou smear with manual screening 1.24 ng/dL 0.76-1.46 [facility] Whole blood hemoglobin A1c/t otal hemoglobin ratio (mass fraction)Ordered By: Irving Lobato on 09-05-2023 HbA1c (Bld) [Mass fraction] 5.6 % 3.8-5.6 [facility] Bacteria identified Cx Nom ( Throat)Ordered By: Oscar Fuller on 08-31-2023 Throat specimen bacteria identification by culture Streptococcus group A [facility] CNOVSPon 08-16-2023 CNOVSP Visit (SP) Office (MICHAONPR) LANA RIVERA ([id number]) 1985 F Date Time Provider Department 08/16/23 2:30 PM ARGELIA VASQUEZPR During your visit today, we recorded the following information about you: 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 Her Tack Maker is Dr. Garcia and Dr. Mooer" IMAGING: US PELVIS: 11/08/2022 R ovary reportedly [...] (more content not included)... Normal [facility] Absolute lymphocyte countOrd ered By: Ashutosh Barajas on 07-25-2023 Lymphocytes Auto (Unsp spec) [#/Vol] 2.07 10*3/uL 0.83-4.51 [facility] Automated lymphocyte count a s percentage of total leukocytesOrdered By: Ashutosh Barajas on 07-25-2023 Lymphocytes/100 WBC Auto (Unsp spec) 31.5 % 19-41 [facility] Basophil percentageOrdered B y: Ashutosh Barajas on 07-25-2023 Basophil percentage 13.6 g/dL 12.0-15.0 [facility] Basophil percentage 103 mg/dL 74-106 [facility] Basophil percentage 139 mmol/L 136-145 [facility] Basophil percentage 3.6 mmol/L 3.5-5.1 [facility] Basophil percentage 110 mmol/L 98-107 [facility] Basophils (Bld) [#/Vol] 6.6 10*3/uL 4.4-11.0 [facility] Basophils (Bld) [#/Vol] 3.7 10*3/uL 2.0-7.7 [facility] Basophils/100 WBC (Bld) 56.2 % 47-70 [facility] Basophils/100 WBC (Bld) 7.5 % 0-10 [facility] Basophils/100 WBC (Bld) 4.1 % 0-5 [facility] Basophils/100 WBC (Bld) 0.5 % 0-1 [facility] Basophil percentageOrdered B y: ED PROVIDER on 07-25-2023 Basophil percentage 0 SEEN /hpf 0-5 [facility] Bilirubin Test strip Ql (U)O rdered By: ED PROVIDER on 07-25-2023 Bilirubin Ql (U) Negative Negative [facility] Determination of erythrocyte mean corpuscular volume (MCV)Ordered By: Ashutosh Barajas on 07-25-2023 MCV (RBC) [Entitic vol] 84.2 fL 81-99 [facility] Erythrocyte distribution wid th ratioOrdered By: Ashutosh Barajas on 07-25-2023 Erythrocyte distribution width (RBC) [Ratio] 12.7 % 11.6-14.6 [facility] Erythrocyte distribution wid th standard deviationOrdered By: Ashutosh Barajas on 07-25-2023 Erythrocyte distribution width (RBC) [Entitic vol] 38.5 fL 35.1-43.9 [facility] Hematocrit Auto (Bld) [Volum e fraction]Ordered By: Ashutosh Barajas on 07-25-2023 Hematocrit (Bld) [Volume fraction] 40.4 % 37-47 [facility] Immature granulocytes/100 WB C Auto (Bld)Ordered By: Ashutosh Barajas on 07-25-2023 Immature granulocytes/100 WBC (Bld) 0.200 % 0.0-0.9 [facility] Ketones Test strip Ql (U)Ord ered By: ED PROVIDER on 07-25-2023 Ketones Ql (U) Negative Negative [facility] Mucus LM Ql (Urine sed)Order ed By: ED PROVIDER on 07-25-2023 Mucus Ql (Urine sed) 0 SEEN /hpf [facility] Nitrite Test strip Ql (U)Ord ered By: ED PROVIDER on 07-25-2023 Nitrite Ql (U) Negative Negative [facility] No Panel InformationOrdered By: Ashutosh Barajas on 07-25-2023 28.3 pg 27.0-32.0 [facility] 33.7 g/dL 32-36 [facility] 179 K/mm3 150-450 [facility] 10.9 fl 6.2-12.0 [facility] 0 % 0-5 [facility] 101 mL/min >60 [facility] 122 mL/min >60 [facility] 137.22 ml/min [facility] 15.8 RATIO 10-20 [facility] 26.0 mmol/L 21.0-32.0 [facility] No Panel InformationOrdered By: ED PROVIDER on 07-25-2023 0 SEEN /hpf 0-5 [facility] Protein Test strip Ql (U)Ord ered By: ED PROVIDER on 07-25-2023 Protein Ql (U) Negative Negative [facility] RBC Auto (Bld) [#/Vol]Ordere d By: Ashutosh Barajas on 07-25-2023 RBC (Bld) [#/Vol] 4.80 10*6/uL 4.2-5.4 [facility] Serum or plasma calcium mg urement (mass/volume)Ordered By: Ashutosh Barajas on 07-25-2023 Calcium [Mass/Vol] 8.8 mg/dL 8.5-10.1 [facility] Serum or plasma creatinine m easurement (mass/volume)Ordered By: Ashutosh Barajas on 07-25-2023 Creatinine [Mass/Vol] 0.70 mg/dL 0.55-1.02 [facility] Serum or plasma urea nitroge n measurement (mass/volume)Ordered By: Ashutosh Barajas on 07-25-2023 Urea nitrogen [Mass/Vol] 11 mg/dL 7-18 [facility] Squamous epithelial cells de tection in urine sediment by light microscopyOrdered By: ED PROVIDER on 07-25-2023 Epithelial cells.squamous LM Ql (Urine sed) 0-5 SEEN /hpf 5-10 [facility] Thin prep Papanicolaou smear with manual screeningOrdered By: Ashutosh Barajas on 07-25-2023 Thin prep Papanicolaou smear with manual screening 3 5-15 [facility] Urine blood detectionOrdered By: ED PROVIDER on 07-25-2023 RBC Ql (U) Negative Negative [facility] Urine clarityOrdered By: ED PROVIDER on 07-25-2023 Clarity (U) Clear Clear [facility] Urine color determinationOrd ered By: ED PROVIDER on 07-25-2023 Color (U) Yellow Yellow [facility] Urine glucose detectionOrder ed By: ED PROVIDER on 07-25-2023 Glucose Ql (U) Normal mg/dl Normal [facility] Urine leukocyte esterase det ection by dipstickOrdered By: ED PROVIDER on 07-25-2023 Leukocyte esterase Test strip Ql (U) Negative Negative [facility] Urine pHOrdered By: ED PROVI TITA on 07-25-2023 pH (U) 6.0 [pH] 5.0 - 8.0 [facility] Urine sediment bacteria coun t by microscopy (number/high power field)Ordered By: ED PROVIDER on 07-25-2023 Bacteria LM.HPF (Urine sed) [#/Area] 0 /[HPF] None Seen [facility] Urine specific gravity measu rementOrdered By: ED PROVIDER on 07-25-2023 Specific gravity (U) [Rel density] 1.015 1.002-1.030 [facility] Urine urobilinogen measureme ntOrdered By: ED PROVIDER on 07-25-2023 Urobilinogen Ql (U) Normal mg/dl Normal [facility] No Panel InformationOrdered By: Ashutosh Barajas on 07-18-2023 < 0.27 FEU/ug/m 0.27-0.49 [facility] 178 U/L 26-192 [facility] Absolute lymphocyte countOrd ered By: Ralph Tracy on 05-03-2023 Lymphocytes Auto (Unsp spec) [#/Vol] 1.14 10*3/uL 0.83-4.51 [facility] Basophil percentageOrdered B y: Ralphcleve Tracy on 05-03-2023 Basophil percentage 159 mg/dL 74-106 [facility] Basophil percentage 7.0 g/dL 6.4-8.2 [facility] Basophil percentage 0.40 mg/dL 0.20-1.00 [facility] Basophil percentage 137 mmol/L 136-145 [facility] Basophil percentage 3.6 mmol/L 3.5-5.1 [facility] Basophil percentage 107 mmol/L 98-107 [facility] Basophil percentage 13.0 umol/L 11-32 [facility] Basophil percentage 168 U/L 84-246 [facility] Basophil percentage Not Reportable [facility] Basophils (Bld) [#/Vol] 4.8 10*3/uL 4.4-11.0 [facility] Basophils (Bld) [#/Vol] 3.1 10*3/uL 2.0-7.7 [facility] Basophils/100 WBC (Bld) 65.8 % 47-70 [facility] Basophils/100 WBC (Bld) 3.8 % 0-5 [facility] Basophils/100 WBC (Bld) 0.6 % 0-1 [facility] Blood erythrocytes count (nu mber/volume)Ordered By: Ralph Tracy on 05-03-2023 RBC (Bld) [#/Vol] 5.11 10*6/uL 4.2-5.4 [facility] Blood hemoglobin measurement (mass/volume)Ordered By: Ralph Tracy on 05-03-2023 Hemoglobin (Bld) [Mass/Vol] 14.1 g/dL 12.0-15.0 [facility] Blood lymphocytes/100 leukoc ytesOrdered By: Ralph Tracy on 05-03-2023 Lymphocytes/100 WBC (Bld) 23.9 % 19-41 [facility] Blood monocytes/100 leukocyt esOrdered By: Ralph Tracy on 05-03-2023 Monocytes/100 WBC (Bld) 5.5 % 0-10 [facility] Blood platelet mean volumeOr dered By: Ralph Tracy on 05-03-2023 Platelet mean volume (Bld) [Entitic vol] 11.4 fL 6.2-12.0 [facility] Determination of erythrocyte mean corpuscular volume (MCV)Ordered By: Ralph Tracy on 05-03-2023 MCV (RBC) [Entitic vol] 86.3 fL 81-99 [facility] Erythrocyte sedimentation ra teOrdered By: Ralph Tracy on 05-03-2023 ESR (Bld) [Velocity] 2 mm/h 0-30 [facility] Hematocrit Auto (Bld) [Volum e fraction]Ordered By: Ralph Tracy on 05-03-2023 Hematocrit (Bld) [Volume fraction] 44.1 % 37-47 [facility] INR in Blood by Coagulation assayOrdered By: Ralph Tracy on 05-03-2023 INR Coag (Bld) [Relative time] 1.0 {INR} [facility] MCHC Auto (RBC) [Mass/Vol]Or dered By: Ralph Tracy on 05-03-2023 MCHC (RBC) [Mass/Vol] 32.0 g/dL 32-36 [facility] No Panel InformationOrdered By: Ralph Tracy on 05-03-2023 27.6 pg 27.0-32.0 [facility] 13.1 % 11.6-14.6 [facility] 40.8 fl 35.1-43.9 [facility] 0.400 % 0.0-0.9 [facility] 0 % 0-5 [facility] 13.2 SECONDS 11.7-14.9 [facility] 75 mL/min >60 [facility] 91 mL/min >60 [facility] 10.0 RATIO 10-20 [facility] 3.4 g/dL 2.2-4.2 [facility] 65 U/L 45-117 [facility] 20 U/L 13-56 [facility] 24.0 mmol/L 21.0-32.0 [facility] 22.6 ng/mL [facility] Negative Negative [facility] Not Reportable [facility] <2 U/mL 0-5 [facility] Platelets bldOrdered By: Mir Tracy on 05-03-2023 Platelets (Bld) [#/Vol] 180 10*3/uL 150-450 [facility] Serum DNA double strand anti body assay (units/volume)Ordered By: Ralph Trayc on 05-03-2023 DNA double strand Ab Qn (S) Not Reportable [facility] Serum Alise-1 antibody assay (u nits/volume)Ordered By: Ralph Tracy on 05-03-2023 Alise-1 extractable nuclear Ab Qn (S) Not Reportable [facility] Serum Scl-70 extractable nuc lear antibody assay (units/volume)Ordered By: Ralph Tracy on 05-03-2023 SCL-70 extractable nuclear Ab Qn (S) Not Reportable [facility] Serum Freedman extractable nucl ear antibody detectionOrdered By: Ralph Tracy on 05-03-2023 Freedman extractable nuclear Ab Ql (S) Not Reportable [facility] Serum or plasma C reactive p rotein measurement (mass/volume)Ordered By: Ralph Tracy on 05-03-2023 CRP [Mass/Vol] mg/L 0.0-3.0 [facility] Serum or plasma albumin mg urement (mass/volume)Ordered By: aRlph Tracy on 05-03-2023 Albumin [Mass/Vol] 3.6 g/dL 3.2-5.0 [facility] Serum or plasma albumin/glob ulin mass ratioOrdered By: Ralph Tracy on 05-03-2023 Albumin/Globulin [Mass ratio] 1.1 {ratio} 0.9-2.4 [facility] Serum or plasma [id number] protein tumor marker measurement (units/volume)Ordered By: Ralph Tracy on 05-03-2023 AFP.tumor marker Qn 2.2 ng/mL 0.0-6.4 [facility] Serum or plasma calcium mg urement (mass/volume)Ordered By: Ralph Tracy on 05-03-2023 Calcium [Mass/Vol] 8.9 mg/dL 8.5-10.1 [facility] Serum or plasma creatinine m easurement (mass/volume)Ordered By: Ralph Tracy on 05-03-2023 Creatinine [Mass/Vol] 0.90 mg/dL 0.55-1.02 [facility] Serum or plasma urea nitroge n measurement (mass/volume)Ordered By: Ralph Tracy on 05-03-2023 Urea nitrogen [Mass/Vol] 9 mg/dL 7-18 [facility] Thin prep Papanicolaou smear with manual screeningOrdered By: Ralph Tracy on 05-03-2023 Thin prep Papanicolaou smear with manual screening 8 U/L 15-37 [facility] Thin prep Papanicolaou smear with manual screening 6 5-15 [facility] No Panel Informationon 04-19 5.7 % 4.2-6.3 [facility] No Panel InformationOrdered By: Cassidy Moore on 04-06-2023 1.15 ng/dL 0.76-1.46 [facility] 4.7 mIU/mL [facility] 95.1 ug/dL 57.3-279.2 [facility] Serum or plasma 17-hydroxypr ogesterone measurement (mass/volume)Ordered By: Cassidy Moore on 04-06-2023 17-Hydroxyprogesterone [Mass/Vol] 17 ng/dL . [facility] Serum or plasma estradiol (E 2) measurement (mass/volume)Ordered By: Cassidy Moore on 04-06-2023 E2 [Mass/Vol] 29.2 pg/mL [facility] Serum or plasma testosterone free measurement (mass/volume)Ordered By: Cassidy Moore on 04-06-2023 Testosterone Free [Mass/Vol] 0.4 pg/mL 0.0-4.2 [facility] Basophil percentageOrdered B y: Ralph Tracy on 03-28-2023 Basophil percentage 109 mg/dL 74-106 [facility] Basophil percentage 6.9 g/dL 6.4-8.2 [facility] Basophil percentage 0.30 mg/dL 0.20-1.00 [facility] Basophil percentage 137 mmol/L 136-145 [facility] Basophil percentage 3.9 mmol/L 3.5-5.1 [facility] Basophil percentage 105 mmol/L 98-107 [facility] Direct bilirubinOrdered By: Ralph Tracy on 03-28-2023 Bilirubin.direct [Mass/Vol] 0.11 mg/dL 0.00-0.30 [facility] No Panel InformationOrdered By: Ralph Tracy on 03-28-2023 81 mL/min >60 [facility] 98 mL/min >60 [facility] 10.7 RATIO 10-20 [facility] 3.3 g/dL 2.2-4.2 [facility] 65 U/L 45-117 [facility] 23 U/L 13-56 [facility] 31.0 mmol/L 21.0-32.0 [facility] Serum or plasma albumin mg urement (mass/volume)Ordered By: Ralph Tracy on 03-28-2023 Albumin [Mass/Vol] 3.6 g/dL 3.2-5.0 [facility] Serum or plasma albumin/glob ulin mass ratioOrdered By: Ralph Tracy on 03-28-2023 Albumin/Globulin [Mass ratio] 1.1 {ratio} 0.9-2.4 [facility] Serum or plasma calcium mg urement (mass/volume)Ordered By: Ralph Tracy on 03-28-2023 Calcium [Mass/Vol] 9.0 mg/dL 8.5-10.1 [facility] Serum or plasma creatinine m easurement (mass/volume)Ordered By: Ralph Tracy on 03-28-2023 Creatinine [Mass/Vol] 0.84 mg/dL 0.55-1.02 [facility] Serum or plasma urea nitroge n measurement (mass/volume)Ordered By: Ralph Tracy on 03-28-2023 Urea nitrogen [Mass/Vol] 9 mg/dL 7-18 [facility] Thin prep Papanicolaou smear with manual screeningOrdered By: Ralph Tracy on 03-28-2023 Thin prep Papanicolaou smear with manual screening 12 U/L 15-37 [facility] Thin prep Papanicolaou smear with manual screening 1 5-15 [facility] No Panel InformationOrdered By: Aleena London on 03-03-2023 1.24 uIU/mL 0.358-3.74 [facility] Absolute lymphocyte countOrd ered By: Loly Sierra on 02-08-2023 Lymphocytes Auto (Unsp spec) [#/Vol] 1.87 10*3/uL 0.83-4.51 [facility] Basophil percentageOrdered B y: Loly Sierra on 02-08-2023 Basophil percentage 0 SEEN /hpf 0-5 [facility] Basophil percentage 110 mg/dL 74-106 [facility] Basophil percentage 6.7 g/dL 6.4-8.2 [facility] Basophil percentage 0.10 mg/dL 0.20-1.00 [facility] Basophil percentage 138 mmol/L 136-145 [facility] Basophil percentage 3.8 mmol/L 3.5-5.1 [facility] Basophil percentage 107 mmol/L 98-107 [facility] Basophils (Bld) [#/Vol] 5.6 10*3/uL 4.4-11.0 [facility] Basophils (Bld) [#/Vol] 2.9 10*3/uL 2.0-7.7 [facility] Basophils/100 WBC (Bld) 51.2 % 47-70 [facility] Basophils/100 WBC (Bld) 4.5 % 0-5 [facility] Basophils/100 WBC (Bld) 0.9 % 0-1 [facility] Bilirubin Test strip Ql (U)O rdered By: Loly Sierra on 02-08-2023 Bilirubin Ql (U) Negative Negative [facility] Blood erythrocytes count (nu mber/volume)Ordered By: Loly Sierra on 02-08-2023 RBC (Bld) [#/Vol] 4.74 10*6/uL 4.2-5.4 [facility] Blood hemoglobin measurement (mass/volume)Ordered By: Loly Sierra on 02-08-2023 Hemoglobin (Bld) [Mass/Vol] 13.2 g/dL 12.0-15.0 [facility] Blood lymphocytes/100 leukoc ytesOrdered By: Loly Sierra on 02-08-2023 Lymphocytes/100 WBC (Bld) 33.5 % 19-41 [facility] Blood monocytes/100 leukocyt esOrdered By: Loly Sierra on 02-08-2023 Monocytes/100 WBC (Bld) 9.5 % 0-10 [facility] Blood platelet mean volumeOr dered By: Loly Sierra on 02-08-2023 Platelet mean volume (Bld) [Entitic vol] 10.8 fL 6.2-12.0 [facility] Determination of erythrocyte mean corpuscular volume (MCV)Ordered By: Loly Sierra on 02-08-2023 MCV (RBC) [Entitic vol] 86.5 fL 81-99 [facility] Hematocrit Auto (Bld) [Volum e fraction]Ordered By: Loly Sierra on 02-08-2023 Hematocrit (Bld) [Volume fraction] 41.0 % 37-47 [facility] Ketones Test strip Ql (U)Ord ered By: Loly Sierra on 02-08-2023 Ketones Ql (U) Negative Negative [facility] MCHC Auto (RBC) [Mass/Vol]Or dered By: Loly Sierra on 02-08-2023 MCHC (RBC) [Mass/Vol] 32.2 g/dL 32-36 [facility] Mucus LM Ql (Urine sed)Order ed By: Loly Sierra on 02-08-2023 Mucus Ql (Urine sed) 0 SEEN /hpf [facility] Nitrite Test strip Ql (U)Ord ered By: Loly Sierra on 02-08-2023 Nitrite Ql (U) Negative Negative [facility] No Panel InformationOrdered By: Loly Sierra on 02-08-2023 27.8 pg 27.0-32.0 [facility] 13.0 % 11.6-14.6 [facility] 40.7 fl 35.1-43.9 [facility] 0.400 % 0.0-0.9 [facility] 0 % 0-5 [facility] 86 mL/min >60 [facility] 104 mL/min >60 [facility] 90.75 ml/min [facility] 12.4 RATIO 10-20 [facility] 3.2 g/dL 2.2-4.2 [facility] 61 U/L 45-117 [facility] 24 U/L 13-56 [facility] 27.0 mmol/L 21.0-32.0 [facility] Platelets bldOrdered By: Reyna Sierra on 02-08-2023 Platelets (Bld) [#/Vol] 177 10*3/uL 150-450 [facility] Protein Test strip Ql (U)Ord ered By: Loly Sierra on 02-08-2023 Protein Ql (U) Negative Negative [facility] Serum or plasma albumin mg urement (mass/volume)Ordered By: Loly Sierra on 02-08-2023 Albumin [Mass/Vol] 3.5 g/dL 3.2-5.0 [facility] Serum or plasma albumin/glob ulin mass ratioOrdered By: Loly Sierra on 02-08-2023 Albumin/Globulin [Mass ratio] 1.1 {ratio} 0.9-2.4 [facility] Serum or plasma calcium mg urement (mass/volume)Ordered By: Loly Sierra on 02-08-2023 Calcium [Mass/Vol] 8.8 mg/dL 8.5-10.1 [facility] Serum or plasma creatinine m easurement (mass/volume)Ordered By: Loly Sierra on 02-08-2023 Creatinine [Mass/Vol] 0.81 mg/dL 0.55-1.02 [facility] Serum or plasma urea nitroge n measurement (mass/volume)Ordered By: Loly Sierra on 02-08-2023 Urea nitrogen [Mass/Vol] 10 mg/dL 7-18 [facility] Squamous epithelial cells de tection in urine sediment by light microscopyOrdered By: Loly Sierra on 02-08-2023 Epithelial cells.squamous LM Ql (Urine sed) 0-5 SEEN /hpf 5-10 [facility] Thin prep Papanicolaou smear with manual screeningOrdered By: Loly Sierra on 02-08-2023 Thin prep Papanicolaou smear with manual screening 12 U/L 15-37 [facility] Thin prep Papanicolaou smear with manual screening 4 5-15 [facility] Urine blood detectionOrdered By: Loly Sierra on 02-08-2023 RBC Ql (U) Negative Negative [facility] RBC Ql (U) 0 SEEN /hpf 0-5 [facility] Urine clarityOrdered By: Reyna Sierra on 02-08-2023 Clarity (U) Clear Clear [facility] Urine color determinationOrd ered By: Loly Sierra on 02-08-2023 Color (U) Yellow Yellow [facility] Urine glucose detectionOrder ed By: Loly Sierra on 02-08-2023 Glucose Ql (U) Normal mg/dl Normal [facility] Urine leukocyte esterase det ection by dipstickOrdered By: Loly Sierra on 02-08-2023 Leukocyte esterase Test strip Ql (U) Negative Negative [facility] Urine pHOrdered By: Loly ferris on 02-08-2023 pH (U) 6.0 [pH] 5.0 - 8.0 [facility] Urine sediment bacteria coun t by microscopy (number/high power field)Ordered By: Loly Sierra on 02-08-2023 Bacteria LM.HPF (Urine sed) [#/Area] 0 /[HPF] None Seen [facility] Urine specific gravity measu rementOrdered By: Loly Sierra on 02-08-2023 Specific gravity (U) [Rel density] 1.020 1.002-1.030 [facility] Urobilinogen Auto test strip Ql (U)Ordered By: Loly Sierra on 02-08-2023 Urobilinogen Ql (U) Normal mg/dl Normal [facility] CNPNon 02-02-2023 [facility] [employer] [facility] Telephone ([employer]) LANA RIVERA ([id number]) 1985 F Date Time Provider Department 02/02/23 NIMA KAUR During your visit today, we recorded the following information about you: Radha Stark 02/02/2023 2:03 PM Signed Lana Rivera is calling Nima Kaur MD today with concern regarding appointment on 02/06 with [employer]. Patient asking who scheduled appointment because she did not. Please return call to patient. Patient has been identified by name and birthdate. Duration of symptoms: N/A Person calling: self Call patient at: on cell [phone] (home) [phone] (cell) Was an appointment scheduled: No Closing statement: Results or non-symptom based questions: Thank you for calling [facility], your call will be returned within [...] Fully Assessed Reason for Visit: Patient Question [3137] Prescriptions as of 02/02/2023 - hydrOXYzine pamoate [...] RIYA AGUILAR on 02/02/23 Normal [facility] Absolute lymphocyte countOrd ered By: Stephany Beaversaurea on 12-25-2022 Lymphocytes Auto (Unsp spec) [#/Vol] 1.23 10*3/uL 0.83-4.51 [facility] Basophil percentageOrdered B y: Stephany Itzel on 12-25-2022 Basophil percentage 124 mg/dL 74-106 [facility] Basophil percentage 138 mmol/L 136-145 [facility] Basophil percentage 3.8 mmol/L 3.5-5.1 [facility] Basophil percentage 106 mmol/L 98-107 [facility] Basophils (Bld) [#/Vol] 4.6 10*3/uL 4.4-11.0 [facility] Basophils (Bld) [#/Vol] 2.7 10*3/uL 2.0-7.7 [facility] Basophils/100 WBC (Bld) 0.9 % 0-1 [facility] Basophils/100 WBC (Bld) 58.5 % 47-70 [facility] Basophils/100 WBC (Bld) 5.7 % 0-5 [facility] Chloride [Moles/Vol] 106 mmol/L 98-107 [facility] Eosinophils/100 WBC (Bld) 5.7 % 0-5 [facility] Glucose [Mass/Vol] 124 mg/dL 74-106 [facility] Comment on above: Fasting Glucose resu lt from 100 to 125 mg/dL suggests IMPAIRED HOMEOSTASIS per A.D.A. criteria. Neutrophils (Bld) [#/Vol] 2.7 10*3/uL 2.0-7.7 [facility] Neutrophils/100 WBC (Bld) 58.5 % 47-70 [facility] Potassium [Moles/Vol] 3.8 mmol/L 3.5-5.1 [facility] Sodium [Moles/Vol] 138 mmol/L 136-145 [facility] WBC (Bld) [#/Vol] 4.6 10*3/uL 4.4-11.0 [facility] Blood erythrocytes count (nu mber/volume)Ordered By: Stephany Robbins on 12-25-2022 RBC (Bld) [#/Vol] 4.87 10*6/uL 4.2-5.4 [facility] Blood hemoglobin measurement (mass/volume)Ordered By: Stephany Robbins on 12-25-2022 Hemoglobin (Bld) [Mass/Vol] 13.4 g/dL 12.0-15.0 [facility] Blood lymphocytes/100 leukoc ytesOrdered By: Stephany Robbins on 12-25-2022 Lymphocytes/100 WBC (Bld) 26.7 % 19-41 [facility] Blood monocytes/100 leukocyt esOrdered By: Stephany Robbins on 12-25-2022 Monocytes/100 WBC (Bld) 7.8 % 0-10 [facility] Blood platelet mean volumeOr dered By: Stephany Robbins on 12-25-2022 Platelet mean volume (Bld) [Entitic vol] 10.8 fL 6.2-12.0 [facility] Determination of erythrocyte mean corpuscular volume (MCV)Ordered By: Stephany Robbins on 12-25-2022 MCV (RBC) [Entitic vol] 86.4 fL 81-99 [facility] Hematocrit Auto (Bld) [Volum e fraction]Ordered By: Stephany Robbins on 12-25-2022 Hematocrit (Bld) [Volume fraction] 42.1 % 37-47 [facility] Laboratory - Chemistry and C hemistry - challengeOrdered By: Stephany Robbins on 12-25-2022 CO2 [Moles/Vol] 26.0 mmol/L 21.0-32.0 [facility] Urea nitrogen/Creatinine [Mass ratio] 11.3 mg/mg 10-20 [facility] Laboratory - Hematology and Cell countsOrdered By: Stephany Robbins on 12-25-2022 Erythrocyte distribution width (RBC) [Entitic vol] 40.4 fL 35.1-43.9 [facility] Erythrocyte distribution width (RBC) [Ratio] 13.0 % 11.6-14.6 [facility] Immature granulocytes/100 WBC (Bld) 0.400 % 0.0-0.9 [facility] Comment on above: IG% - Immature Granu locytes (promyelocytes, myelocytes and metamyelocytes) > 1% indicates that a LEFT SHIFT is Present. MCH (RBC) [Entitic mass] 27.5 pg 27.0-32.0 [facility] Nucleated RBC/100 WBC (Bld) [Ratio] 0 % 0-5 [facility] MCHC Auto (RBC) [Mass/Vol]Or dered By: Stephany Robbins on 12-25-2022 MCHC (RBC) [Mass/Vol] 31.8 g/dL 32-36 [facility] No Panel InformationOrdered By: Stephany Robbins on 12-25-2022 Estimated Creatinine Clearance Calc 103.53 ml/min [facility] Estimated GFR (MDRD) Amer 120 mL/min >60 [facility] Comment on above: GFR Calc Estimated GFR (MDRD) Non-Af Amer 100 mL/min >60 [facility] Comment on above: Non- GFR Calc Troponin I High Sensitivity 3 pg/mL 3.0-54.0 [facility] Comment on above: Please Note: New Chantal t Units and Gender Specific Reference Ranges. For more information see Policy Stat Procedure [place] High Sensitivity Troponin (TNIH) and attachments. 27.5 pg 27.0-32.0 [facility] 13.0 % 11.6-14.6 [facility] 40.4 fl 35.1-43.9 [facility] 0.400 % 0.0-0.9 [facility] 0 % 0-5 [facility] 100 mL/min >60 [facility] 120 mL/min >60 [facility] 103.53 ml/min [facility] 11.3 RATIO 10-20 [facility] 3 pg/mL 3.0-54.0 [facility] 26.0 mmol/L 21.0-32.0 [facility] Platelets bldOrdered By: Tegan Robbins on 12-25-2022 Platelets (Bld) [#/Vol] 158 10*3/uL 150-450 [facility] Serum or plasma calcium mg urement (mass/volume)Ordered By: Stephany Robibns on 12-25-2022 Calcium [Mass/Vol] 8.6 mg/dL 8.5-10.1 [facility] Serum or plasma creatinine m easurement (mass/volume)Ordered By: Stephany Robbins on 12-25-2022 Creatinine [Mass/Vol] 0.71 mg/dL 0.55-1.02 [facility] Comment on above: The validity of the calculated GFR & GFRAA in patients over 70 years has not been determined. Clinical correlation is essential. Serum or plasma urea nitroge n measurement (mass/volume)Ordered By: Stephany Robbins on 12-25-2022 Urea nitrogen [Mass/Vol] 8 mg/dL 7-18 [facility] Thin prep Papanicolaou smear with manual screeningOrdered By: Stephany Robbins on 12-25-2022 Thin prep Papanicolaou smear with manual screening 6 5-15 [facility] Chlamydia trachomatis rRNA d etection by probe and target amplification methodOrdered By: Hanh Balderas on 12-15-2022 C. trachomatis rRNA JONE+probe Ql (Unsp spec) Negative Negative [facility] Gram stain for investigation of transfusion reactionOrdered By: Hanh Balderas on 12-15-2022 Microscopic observation Gram stain Nom (Unsp spec) [facility] Microscopic observation Gram stain Nom (Unsp spec) [facility] Laboratory - Microbiology an d Antimicrobial susceptibilityOrdered By: Hanh Balderas on 12-15-2022 N. gonorrhoeae DNA JONE+probe Ql (Unsp spec) Negative Negative [facility] Comment on above: Performed at: =[address] [id number] Director: Love Vance MD, Phone: [phone] No Panel InformationOrdered By: Hanh Balderas on 12-15-2022 Negative Negative [facility] No Panel Informationon 12-15 POC Trichomonas (Rapid) Negative [facility] Negative [facility] Thin prep Papanicolaou smear with manual screeningOrdered By: Hanh Balderas on 12-15-2022 Thin prep Papanicolaou smear with manual screening [facility] Thin prep Papanicolaou smear with manual screening [facility] Absolute lymphocyte countOrd ered By: Jesi Padilla on 11-19-2022 Lymphocytes Auto (Unsp spec) [#/Vol] 1.83 10*3/uL 0.83-4.51 [facility] Basophil percentageOrdered B y: Jesi Padilla on 11-19-2022 Basophil percentage 95 mg/dL 74-106 [facility] Basophil percentage 7.4 g/dL 6.4-8.2 [facility] Basophil percentage 0.40 mg/dL 0.20-1.00 [facility] Basophil percentage 138 mmol/L 136-145 [facility] Basophil percentage 3.5 mmol/L 3.5-5.1 [facility] Basophil percentage 105 mmol/L 98-107 [facility] Basophils (Bld) [#/Vol] 6.0 10*3/uL 4.4-11.0 [facility] Basophils (Bld) [#/Vol] 3.3 10*3/uL 2.0-7.7 [facility] Basophils/100 WBC (Bld) 55.7 % 47-70 [facility] Basophils/100 WBC (Bld) 4.7 % 0-5 [facility] Basophils/100 WBC (Bld) 0.5 % 0-1 [facility] Bilirubin [Mass/Vol] 0.40 mg/dL 0.20-1.00 [facility] Comment on above: For patients on eltr ombopag therapy, use of Dimension [place] TBIL is not recommended. Chloride [Moles/Vol] 105 mmol/L 98-107 [facility] Eosinophils/100 WBC (Bld) 4.7 % 0-5 [facility] Glucose [Mass/Vol] 95 mg/dL 74-106 [facility] Neutrophils (Bld) [#/Vol] 3.3 10*3/uL 2.0-7.7 [facility] Neutrophils/100 WBC (Bld) 55.7 % 47-70 [facility] Potassium [Moles/Vol] 3.5 mmol/L 3.5-5.1 [facility] Protein [Mass/Vol] 7.4 g/dL 6.4-8.2 [facility] Sodium [Moles/Vol] 138 mmol/L 136-145 [facility] WBC (Bld) [#/Vol] 6.0 10*3/uL 4.4-11.0 [facility] Blood erythrocytes count (nu mber/volume)Ordered By: Jesi Padilla on 11-19-2022 RBC (Bld) [#/Vol] 4.91 10*6/uL 4.2-5.4 [facility] Blood hemoglobin measurement (mass/volume)Ordered By: Jesi Padilla on 11-19-2022 Hemoglobin (Bld) [Mass/Vol] 13.5 g/dL 12.0-15.0 [facility] Blood lymphocytes/100 leukoc ytesOrdered By: Jesi Padilla on 11-19-2022 Lymphocytes/100 WBC (Bld) 30.7 % 19-41 [facility] Blood monocytes/100 leukocyt esOrdered By: Jesi Padilla on 11-19-2022 Monocytes/100 WBC (Bld) 8.1 % 0-10 [facility] Blood platelet mean volumeOr dered By: Jesi Padilla on 11-19-2022 Platelet mean volume (Bld) [Entitic vol] 10.7 fL 6.2-12.0 [facility] Determination of erythrocyte mean corpuscular volume (MCV)Ordered By: Jesi Padilla on 11-19-2022 MCV (RBC) [Entitic vol] 85.3 fL 81-99 [facility] Hematocrit Auto (Bld) [Volum e fraction]Ordered By: Jesi Padilla on 11-19-2022 Hematocrit (Bld) [Volume fraction] 41.9 % 37-47 [facility] Laboratory - Chemistry and C hemistry - challengeOrdered By: Jesi Padilla on 11-19-2022 ALP [Catalytic activity/Vol] 74 U/L 45-117 [facility] ALT [Catalytic activity/Vol] 25 U/L 13-56 [facility] CO2 [Moles/Vol] 30.0 mmol/L 21.0-32.0 [facility] Globulin (S) [Mass/Vol] 3.7 g/dL 2.2-4.2 [facility] Lipase [Catalytic activity/Vol] 30 U/L 13-75 [facility] Comment on above: Please note:LIPASE r evised reference range effective 22. New Lipase methodology. Expected to produce lower values than the previous assay method. NEW Reference Range: 13 - 75 U/L Urea nitrogen/Creatinine [Mass ratio] 13.7 mg/mg 10-20 [facility] Laboratory - Hematology and Cell countsOrdered By: Jesi Padilla on 11-19-2022 Erythrocyte distribution width (RBC) [Entitic vol] 39.4 fL 35.1-43.9 [facility] Erythrocyte distribution width (RBC) [Ratio] 12.7 % 11.6-14.6 [facility] Immature granulocytes/100 WBC (Bld) 0.300 % 0.0-0.9 [facility] Comment on above: IG% - Immature Granu locytes (promyelocytes, myelocytes and metamyelocytes) > 1% indicates that a LEFT SHIFT is Present. MCH (RBC) [Entitic mass] 27.5 pg 27.0-32.0 [facility] Nucleated RBC/100 WBC (Bld) [Ratio] 0 % 0-5 [facility] MCHC Auto (RBC) [Mass/Vol]Or dered By: Jesi Padilla on 11-19-2022 MCHC (RBC) [Mass/Vol] 32.2 g/dL 32-36 [facility] No Panel InformationOrdered By: Jesi Padilla on 11-19-2022 Estimated Creatinine Clearance Calc 91.88 ml/min [facility] Estimated GFR (MDRD) Amer 105 mL/min >60 [facility] Comment on above: GFR Calc Estimated GFR (MDRD) Non-Af Amer 86 mL/min >60 [facility] Comment on above: Non- GFR Calc 27.5 pg 27.0-32.0 [facility] 12.7 % 11.6-14.6 [facility] 39.4 fl 35.1-43.9 [facility] 0.300 % 0.0-0.9 [facility] 0 % 0-5 [facility] 86 mL/min >60 [facility] 105 mL/min >60 [facility] 91.88 ml/min [facility] 13.7 RATIO 10-20 [facility] 3.7 g/dL 2.2-4.2 [facility] 30 U/L 13-75 [facility] 74 U/L 45-117 [facility] 25 U/L 13-56 [facility] 30.0 mmol/L 21.0-32.0 [facility] Platelets bldOrdered By: Emily Padilla on 11-19-2022 Platelets (Bld) [#/Vol] 194 10*3/uL 150-450 [facility] Serum or plasma albumin mg urement (mass/volume)Ordered By: Jesi Padilla on 11-19-2022 Albumin [Mass/Vol] 3.7 g/dL 3.2-5.0 [facility] Serum or plasma albumin/glob ulin mass ratioOrdered By: Jesi Padilla on 11-19-2022 Albumin/Globulin [Mass ratio] 1.0 {ratio} 0.9-2.4 [facility] Serum or plasma calcium mg urement (mass/volume)Ordered By: Jesi Padilla on 11-19-2022 Calcium [Mass/Vol] 9.2 mg/dL 8.5-10.1 [facility] Serum or plasma creatinine m easurement (mass/volume)Ordered By: Jesi Padilla on 11-19-2022 Creatinine [Mass/Vol] 0.80 mg/dL 0.55-1.02 [facility] Comment on above: The validity of the calculated GFR & GFRAA in patients over 70 years has not been determined. Clinical correlation is essential. Serum or plasma urea nitroge n measurement (mass/volume)Ordered By: Jesi Padilla on 11-19-2022 Urea nitrogen [Mass/Vol] 11 mg/dL 7-18 [facility] Thin prep Papanicolaou smear with manual screeningOrdered By: Jesi Padilla on 11-19-2022 Thin prep Papanicolaou smear with manual screening 15 U/L 15-37 [facility] Thin prep Papanicolaou smear with manual screening 3 5-15 [facility] CNOVSPon 11-16-2022 CNOVSP Visit (SP) Office (AGGYNONPODom) LANA RIVERA ([id number]) 1985 F Date Time Provider Department 11/16/22 [...] years as her is s/p vasectomy. Her Tack Maker is Dr. Garcia and Dr. Moore The [...] bleeding, vaginal discharge and vaginal pain. 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 Normal [facility] CNPLaurita 11-10-2022 CNPN Telephone (NOMAN Fernandes) LANA RIVERA ([id number]) 1985 F Date Time Provider Department 11/10/22 LUKASZ EUBANKS During your visit today, we recorded the following information about you: Azra Weaver 11/10/2022 8:41 AM Signed Returning patients message, LMTCO and reschedule appointment that patient canceled. Azra eWaver 11/10/22 Allergies As of Date: 11/10/2022 Noted [...] Encounter Status:Closed by AZRA WEAVER on 11/10/22 [facility] Absolute lymphocyte countOrd ered By: Dr. Luis on 11-08-2022 Lymphocytes Auto (Unsp spec) [#/Vol] 1.54 10*3/uL 0.83-4.51 [facility] Basophil percentageOrdered B y: Dr. Luis on 11-08-2022 Basophil percentage 0 SEEN /hpf 0-5 [facility] Basophil percentage 84 mg/dL 74-106 [facility] Basophil percentage 7.6 g/dL 6.4-8.2 [facility] Basophil percentage 0.20 mg/dL 0.20-1.00 [facility] Basophil percentage 137 mmol/L 136-145 [facility] Basophil percentage 3.2 mmol/L 3.5-5.1 [facility] Basophil percentage 105 mmol/L 98-107 [facility] Basophils (Bld) [#/Vol] 5.7 10*3/uL 4.4-11.0 [facility] Basophils (Bld) [#/Vol] 3.2 10*3/uL 2.0-7.7 [facility] Basophils/100 WBC (Bld) 56.0 % 47-70 [facility] Basophils/100 WBC (Bld) 4.6 % 0-5 [facility] Basophils/100 WBC (Bld) 0.7 % 0-1 [facility] Basophil percentageOrdered B y: Dimple Luis on 11-08-2022 Bilirubin [Mass/Vol] 0.20 mg/dL 0.20-1.00 [facility] Comment on above: For patients on eltr ombopag therapy, use of Dimension [place] TBIL is not recommended. Chloride [Moles/Vol] 105 mmol/L 98-107 [facility] Eosinophils/100 WBC (Bld) 4.6 % 0-5 [facility] Glucose [Mass/Vol] 84 mg/dL 74-106 [facility] Neutrophils (Bld) [#/Vol] 3.2 10*3/uL 2.0-7.7 [facility] Neutrophils/100 WBC (Bld) 56.0 % 47-70 [facility] Potassium [Moles/Vol] 3.2 mmol/L 3.5-5.1 [facility] Protein [Mass/Vol] 7.6 g/dL 6.4-8.2 [facility] Sodium [Moles/Vol] 137 mmol/L 136-145 [facility] WBC (Bld) [#/Vol] 5.7 10*3/uL 4.4-11.0 [facility] Bilirubin Test strip Ql (U)O rdered By: Dr. Luis on 11-08-2022 Bilirubin Ql (U) Negative Negative [facility] Blood erythrocytes count (nu mber/volume)Ordered By: Dr. Luis on 11-08-2022 RBC (Bld) [#/Vol] 5.01 10*6/uL 4.2-5.4 [facility] Blood hemoglobin measurement (mass/volume)Ordered By: Dr. Luis on 11-08-2022 Hemoglobin (Bld) [Mass/Vol] 13.7 g/dL 12.0-15.0 [facility] Blood lymphocytes/100 leukoc ytesOrdered By: Dr. Luis on 11-08-2022 Lymphocytes/100 WBC (Bld) 27.2 % 19-41 [facility] Blood monocytes/100 leukocyt esOrdered By: Dr. Luis on 11-08-2022 Monocytes/100 WBC (Bld) 11.3 % 0-10 [facility] Blood platelet mean volumeOr dered By: Dr. Luis on 11-08-2022 Platelet mean volume (Bld) [Entitic vol] 11.3 fL 6.2-12.0 [facility] Determination of erythrocyte mean corpuscular volume (MCV)Ordered By: Dr. Luis on 11-08-2022 MCV (RBC) [Entitic vol] 85.2 fL 81-99 [facility] Direct bilirubinOrdered By: Dr. Luis on 11-08-2022 Bilirubin.direct [Mass/Vol] 0.07 mg/dL 0.00-0.30 [facility] Hematocrit Auto (Bld) [Volum e fraction]Ordered By: Dr. Luis on 11-08-2022 Hematocrit (Bld) [Volume fraction] 42.7 % 37-47 [facility] Ketones Test strip Ql (U)Ord ered By: Dr. Luis on 11-08-2022 Ketones Ql (U) Negative Negative [facility] Laboratory - Chemistry and C hemistry - challengeOrdered By: Dimple Luis on 11-08-2022 ALP [Catalytic activity/Vol] 72 U/L 45-117 [facility] ALT [Catalytic activity/Vol] 20 U/L 13-56 [facility] CO2 [Moles/Vol] 27.0 mmol/L 21.0-32.0 [facility] Globulin (S) [Mass/Vol] 3.8 g/dL 2.2-4.2 [facility] Lipase [Catalytic activity/Vol] 46 U/L 13-75 [facility] Comment on above: Please note:LIPASE r evised reference range effective 22. New Lipase methodology. Expected to produce lower values than the previous assay method. NEW Reference Range: 13 - 75 U/L Urea nitrogen/Creatinine [Mass ratio] 14.6 mg/mg 10-20 [facility] Laboratory - Hematology and Cell countsOrdered By: Dimple Luis on 11-08-2022 Erythrocyte distribution width (RBC) [Entitic vol] 39.6 fL 35.1-43.9 [facility] Erythrocyte distribution width (RBC) [Ratio] 12.9 % 11.6-14.6 [facility] Immature granulocytes/100 WBC (Bld) 0.200 % 0.0-0.9 [facility] Comment on above: IG% - Immature Granu locytes (promyelocytes, myelocytes and metamyelocytes) > 1% indicates that a LEFT SHIFT is Present. MCH (RBC) [Entitic mass] 27.3 pg 27.0-32.0 [facility] Nucleated RBC/100 WBC (Bld) [Ratio] 0 % 0-5 [facility] MCHC Auto (RBC) [Mass/Vol]Or dered By: Dr. Luis on 11-08-2022 MCHC (RBC) [Mass/Vol] 32.1 g/dL 32-36 [facility] Mucus LM Ql (Urine sed)Order ed By: Dr. Luis on 11-08-2022 Mucus Ql (Urine sed) 0 SEEN /hpf [facility] Nitrite Test strip Ql (U)Ord ered By: Dr. Luis on 11-08-2022 Nitrite Ql (U) Negative Negative [facility] No Panel InformationOrdered By: Dimple Luis on 11-08-2022 Estimated Creatinine Clearance Calc 98.01 ml/min [facility] Estimated GFR (MDRD) Amer 112 mL/min >60 [facility] Comment on above: GFR Calc Estimated GFR (MDRD) Non-Af Amer 93 mL/min >60 [facility] Comment on above: Non- GFR Calc No Panel InformationOrdered By: Dr. Luis on 11-08-2022 27.3 pg 27.0-32.0 [facility] 12.9 % 11.6-14.6 [facility] 39.6 fl 35.1-43.9 [facility] 0.200 % 0.0-0.9 [facility] 0 % 0-5 [facility] 93 mL/min >60 [facility] 112 mL/min >60 [facility] 98.01 ml/min [facility] 14.6 RATIO 10-20 [facility] 3.8 g/dL 2.2-4.2 [facility] 46 U/L 13-75 [facility] 72 U/L 45-117 [facility] 20 U/L 13-56 [facility] 27.0 mmol/L 21.0-32.0 [facility] Platelets bldOrdered By: Dr. Luis on 11-08-2022 Platelets (Bld) [#/Vol] 189 10*3/uL 150-450 [facility] Protein Test strip Ql (U)Ord ered By: Dr. Luis on 11-08-2022 Protein Ql (U) Negative Negative [facility] Serum or plasma albumin mg urement (mass/volume)Ordered By: Dr. Luis on 11-08-2022 Albumin [Mass/Vol] 3.8 g/dL 3.2-5.0 [facility] Serum or plasma calcium mg urement (mass/volume)Ordered By: Dr. Luis on 11-08-2022 Calcium [Mass/Vol] 9.3 mg/dL 8.5-10.1 [facility] Serum or plasma creatinine m easurement (mass/volume)Ordered By: Dr. Luis on 11-08-2022 Creatinine [Mass/Vol] 0.75 mg/dL 0.55-1.02 [facility] Comment on above: The validity of the calculated GFR & GFRAA in patients over 70 years has not been determined. Clinical correlation is essential. Serum or plasma urea nitroge n measurement (mass/volume)Ordered By: Dr. Luis on 11-08-2022 Urea nitrogen [Mass/Vol] 11 mg/dL 7-18 [facility] Squamous epithelial cells de tection in urine sediment by light microscopyOrdered By: Dr. Luis on 11-08-2022 Epithelial cells.squamous LM Ql (Urine sed) 0-5 SEEN /hpf 5-10 [facility] Thin prep Papanicolaou smear with manual screeningOrdered By: Dr. Luis on 11-08-2022 Thin prep Papanicolaou smear with manual screening 10 U/L 15-37 [facility] Thin prep Papanicolaou smear with manual screening 5 5-15 [facility] Urine blood detectionOrdered By: Dr. Luis on 11-08-2022 RBC Ql (U) Negative Negative [facility] RBC Ql (U) 0 SEEN /hpf 0-5 [facility] Urine clarityOrdered By: Dr. Luis on 11-08-2022 Clarity (U) Clear Clear [facility] Urine color determinationOrd ered By: Dr. Luis on 11-08-2022 Color (U) Yellow Yellow [facility] Urine glucose detectionOrder ed By: Dr. Luis on 11-08-2022 Glucose Ql (U) Normal mg/dl Normal [facility] Urine leukocyte esterase det ection by dipstickOrdered By: Dr. Luis on 11-08-2022 Leukocyte esterase Test strip Ql (U) Negative Negative [facility] Urine pHOrdered By: Dr. John apodaca on 11-08-2022 pH (U) 6.5 [pH] 5.0 - 8.0 [facility] Urine sediment bacteria coun t by microscopy (number/high power field)Ordered By: Dr. Luis on 11-08-2022 Bacteria LM.HPF (Urine sed) [#/Area] RARE /hpf None Seen [facility] Urine specific gravity measu rementOrdered By: Dr. Luis on 11-08-2022 Specific gravity (U) [Rel density] 1.015 1.002-1.030 [facility] Urobilinogen Auto test strip Ql (U)Ordered By: Dr. Luis on 11-08-2022 Urobilinogen Ql (U) Normal mg/dl Normal [facility] .Auto Diffon 10-11-2022 Basophil, Absolute 0.0 10 3/mcL Normal 0.0-0.2 [facility] ([place]) Comment on above: Performed By: #### A DIFF, CMP, MDW, LIP, CBC, ANEU, GFR #### [address] [address] Basophils/100 WBC (Bld) 0.9 % Normal 0.0-2.5 [facility] ([place]) Comment on above: Performed By: #### A DIFF, CMP, MDW, LIP, CBC, ANEU, GFR #### [address] [address] Eosinophil, Absolute 0.3 10 3/mcL Normal 0.0-0.4 Replaced by [facility] ([place]) Comment on above: Performed By: #### A DIFF, CMP, MDW, LIP, CBC, ANEU, GFR #### [address] [address] Eosinophils/100 WBC (Bld) 5.3 % Normal 0.0-7.0 [facility] ([place]) Comment on above: Performed By: #### A DIFF, CMP, MDW, LIP, CBC, ANEU, GFR #### [address] [address] Lymphocyte, Absolute 1.7 10 3/mcL Normal 0.8-3.9 Replaced by [facility] ([place] Comment on above: Performed By: #### A DIFF, CMP, MDW, LIP, CBC, ANEU, GFR #### [address] [address] Lymphocytes/100 WBC (Bld) 33.5 % Normal 10.0-50.0 [facility] ([place]) Comment on above: Performed By: #### A DIFF, CMP, MDW, LIP, CBC, ANEU, GFR #### [address] [address] Monocyte, Absolute 0.5 10 3/mcL Normal 0.2-1.0 [facility] ([place]) Comment on above: Performed By: #### A DIFF, CMP, MDW, LIP, CBC, ANEU, GFR #### [address] [address] Monocytes/100 WBC (Bld) 10.0 % Normal 1.7-13.0 [facility] ([place]) Comment on above: Performed By: #### A DIFF, CMP, MDW, LIP, CBC, ANEU, GFR #### [address] [address] Neutrophils/100 WBC (Bld) 50.3 % Normal 37.0-80.0 [facility] ([place]) Comment on above: Performed By: #### A DIFF, CMP, MDW, LIP, CBC, ANEU, GFR #### [address] [address] .GFRon 10-11-2022 GFR 102 ml/min/1.73sqm Normal [facility] ([place]) Comment on above: Result Comment: GFR Population [...] CMP, MDW, LIP, CBC, ANEU, GFR #### [address] [address] GFR Non- 84 ml/min/1.73sqm Normal [facility] ([place]) Comment on above: Result Comment: GFR Population [...] CMP, MDW, LIP, CBC, ANEU, GFR #### [address] [address] .MDWon 10-11-2022 Monocyte Distribution Width 17.66 Normal 0.00-20.00 [facility] ([place]) Comment on above: Result Comment: For ED adult patients suspected of sepsis, MDW<=20.0 does not rule out sepsis or risk of sepsis Performed By: #### A DIFF, CMP, MDW, LIP, CBC, ANEU, GFR #### [address] [address] .NEUABSon 10-11-2022 Neutrophil, Absolute 2.6 10 3/mcL Low 2.9-6.2 Replaced by [facility] ([place] Comment on above: Performed By: #### A DIFF, CMP, MDW, LIP, CBC, ANEU, GFR #### [address] [address] CBCon 10-11-2022 Erythrocyte distribution width (RBC) [Ratio] 13.5 % Normal 11.5-14.5 [facility] ([place]) Comment on above: Performed By: #### A DIFF, CMP, MDW, LIP, CBC, ANEU, GFR #### [address] [address] Hematocrit (Bld) [Volume fraction] 40.8 % Normal 37.0-47.0 [facility] ([place]) Comment on above: Performed By: #### A DIFF, CMP, MDW, LIP, CBC, ANEU, GFR #### [address] [address] Hgb 13.7 G/dL Normal 12.0-16.0 [facility] ([place]) Comment on above: Performed By: #### A DIFF, CMP, MDW, LIP, CBC, ANEU, GFR #### [address] [address] MCH (RBC) [Entitic mass] 28.0 pg Normal 27.0-31.2 [facility] ([place]) Comment on above: Performed By: #### A DIFF, CMP, MDW, LIP, CBC, ANEU, GFR #### [address] [address] MCHC 33.6 G/dL Normal 33.0-37.0 [facility] ([place]) Comment on above: Performed By: #### A DIFF, CMP, MDW, LIP, CBC, ANEU, GFR #### [place] [id number] MCV (RBC) [Entitic vol] 83.2 fL Normal 80.0-94.0 [facility] ([place]) Comment on above: Performed By: #### A DIFF, CMP, MDW, LIP, CBC, ANEU, GFR #### [address] [address] Platelet 171 10 3/mcL Normal 130-400 [facility] ([place]) Comment on above: Performed By: #### A DIFF, CMP, MDW, LIP, CBC, ANEU, GFR #### [address] [address] Platelet mean volume (Bld) [Entitic vol] 9.2 fL Normal 7.4-10.4 [facility] ([place]) Comment on above: Performed By: #### A DIFF, CMP, MDW, LIP, CBC, ANEU, GFR #### [address] [address] RBC 4.91 10 6/mcL Normal 4.20-5.40 [facility] ([place]) Comment on above: Performed By: #### A DIFF, CMP, MDW, LIP, CBC, ANEU, GFR #### [address] [address] WBC 5.2 10 3/mcL Normal 4.6-10.8 [facility] ([place]) Comment on above: Performed By: #### A DIFF, CMP, MDW, LIP, CBC, ANEU, GFR #### [address] [address] CMPon 10-11-2022 Albumin Level 3.9 G/dL Normal 3.5-5.0 [facility] ([place]) Comment on above: Performed By: #### A DIFF, CMP, MDW, LIP, CBC, ANEU, GFR #### [address] [address] Albumin/Globulin [Mass ratio] 1.3 {ratio} Normal 1.1-2.5 [facility], 1928–1983) Comment on above: Performed By: #### A DIFF, CMP, MDW, LIP, CBC, ANEU, GFR #### [address] [address] ALP [Catalytic activity/Vol] 78 U/L Normal 40-135 [facility] ([place]) Comment on above: Performed By: #### A DIFF, CMP, MDW, LIP, CBC, ANEU, GFR #### [address] [address] ALT [Catalytic activity/Vol] 17 U/L Normal 14-59 [facility] ([place]) Comment on above: Performed By: #### A DIFF, CMP, MDW, LIP, CBC, ANEU, GFR #### [address] [address] AST [Catalytic activity/Vol] 11 U/L Normal 10-40 [facility] ([place]) Comment on above: Performed By: #### A DIFF, CMP, MDW, LIP, CBC, ANEU, GFR #### [address] [address] Bili Total 0.2 mg/dL Normal 0.2-1.0 [facility] ([place]) Comment on above: Result Comment: Use of this assay is not recommended for patients undergoing treatment with eltrombopag due to the potential for falsely elevated results. Performed By: #### A DIFF, CMP, MDW, LIP, CBC, ANEU, GFR #### [address] [address] BUN/Creatinine Ratio 12 ratio Normal 7-27 [facility]) Comment on above: Performed By: #### A DIFF, CMP, MDW, LIP, CBC, ANEU, GFR #### [address] [address] Calcium [Mass/Vol] 8.7 mg/dL Normal 8.4-10.2 [facility] ([place]) Comment on above: Performed By: #### A DIFF, CMP, MDW, LIP, CBC, ANEU, GFR #### [address] [address] Chloride [Moles/Vol] 104 mmol/L Normal 98-107 [facility]) Comment on above: Performed By: #### A DIFF, CMP, MDW, LIP, CBC, ANEU, GFR #### [address] [address] CO2 [Moles/Vol] 28 mmol/L Normal 22-29 [facility] ([place]) Comment on above: Performed By: #### A DIFF, CMP, MDW, LIP, CBC, ANEU, GFR #### [address] [address] Creatinine [Mass/Vol] 0.78 mg/dL Normal 0.55-1.02 [facility] ([place]) Comment on above: Performed By: #### A DIFF, CMP, MDW, LIP, CBC, ANEU, GFR #### [address] [address] Electrolyte Balance 8.0 mEq/L Normal 4.0-15.0 [facility] ([place]) Comment on above: Performed By: #### A DIFF, CMP, MDW, LIP, CBC, ANEU, GFR #### [address] [address] Globulin 3.0 G/dL Normal [facility] ([place]) Comment on above: Performed By: #### A DIFF, CMP, MDW, LIP, CBC, ANEU, GFR #### [address] [address] Glucose [Mass/Vol] 106 mg/dL High 70-105 [facility] ([place]) Comment on above: Performed By: #### A DIFF, CMP, MDW, LIP, CBC, ANEU, GFR #### [address] [address] Potassium [Moles/Vol] 3.5 mmol/L Normal 3.5-5.1 [facility] ([place]) Comment on above: Performed By: #### A DIFF, CMP, MDW, LIP, CBC, ANEU, GFR #### [address] [address] Sodium [Moles/Vol] 140 mmol/L Normal 136-145 [facility] ([place]) Comment on above: Performed By: #### A DIFF, CMP, MDW, LIP, CBC, ANEU, GFR #### [address] [address] Total Protein 6.9 G/dL Normal 6.4-8.2 [facility] ([place]) Comment on above: Performed By: #### A DIFF, CMP, MDW, LIP, CBC, ANEU, GFR #### [facility] [address] [place], [place] [address] Urea nitrogen [Mass/Vol] 9 mg/dL Normal 7-18 [facility] ([place]) Comment on above: Performed By: #### A DIFF, CMP, MDW, LIP, CBC, ANEU, GFR #### [facility] [address] [place], [place] [address] CT ABD/PELVIS W/ IV CONTRAST ONLYon 10-11-2022 [...] Ordering Provider: BALDO FENG Normal [facility] ([place]) LIPon 10-11-2022 Lipase Level 42 U/L Normal 16-77 [facility] ([place]) Comment on above: Performed By: #### A DIFF, CMP, MDW, LIP, CBC, ANEU, GFR #### [address] [address] UAon 10-11-2022 Color (U) Yellow Normal [facility] ([place]) Comment on above: Performed By: #### U A #### [place] [id number] Glucose (U) [Mass/Vol] 100 mg/dL Abnormal Negative Replaced by [facility] ([place] Comment on above: Performed By: #### U A #### [place] [address] Ketones Ql (U) Negative Normal Negative [facility] ([place]) Comment on above: Performed By: #### U A #### [address] [address] UA Appear Clear Normal Clear [facility] ([place]) Comment on above: Performed By: #### U A #### [address] [address] UA Blood Negative Normal Negative [facility] ([place]) Comment on above: Performed By: #### U A #### [address] [address] UA Leuk Est Negative Normal Negative [facility] ([place]) Comment on above: Performed By: #### U A #### [address] [address] UA Nitrite Negative Normal Negative [facility] ([place]) Comment on above: Performed By: #### U A #### [address] [address] UA pH 7.0 Normal 5.0 - 8.0 [facility] ([place]) Comment on above: Performed By: #### U A #### [address] [address] UA Protein Negative Normal Negative [facility] ([place]) Comment on above: Performed By: #### U A #### [address] [address] UA Spec Grav 1.025 Normal 1.015-1.025 [facility] ([place]) Comment on above: Performed By: #### U A #### [address] [address] UA Specimen Type Clean Catch Normal [facility] ([place]) Comment on above: Performed By: #### U A #### [address] [address] UA Urobilinogen 0.2 E.U./dL Normal 0.2-1.0 [facility] ([place]) Comment on above: Performed By: #### U A #### [address] [address] Urobilinogen (U) [Mass/Vol] Negative Normal Negative [facility] ([place]) Comment on above: Performed By: #### U A #### [address] [address] Basophil percentageOrdered B y: Dr. Luis on 08-26-2022 Basophil percentage 104 mg/dL 74-106 [facility] Basophil percentage 139 mmol/L 136-145 [facility] Basophil percentage 3.7 mmol/L 3.5-5.1 [facility] Basophil percentage 106 mmol/L 98-107 [facility] Basophil percentageOrdered B y: Dimple Luis on 08-26-2022 Chloride [Moles/Vol] 106 mmol/L 98-107 [facility] Glucose [Mass/Vol] 104 mg/dL 74-106 [facility] Comment on above: Fasting Glucose resu lt from 100 to 125 mg/dL suggests IMPAIRED HOMEOSTASIS per A.D.A. criteria. Potassium [Moles/Vol] 3.7 mmol/L 3.5-5.1 [facility] Sodium [Moles/Vol] 139 mmol/L 136-145 [facility] Laboratory - Chemistry and C hemistry - challengeOrdered By: Dimple Luis on 08-26-2022 CO2 [Moles/Vol] 27.0 mmol/L 21.0-32.0 [facility] Urea nitrogen/Creatinine [Mass ratio] 9.2 mg/mg 10-20 [facility] No Panel InformationOrdered By: Dimple Luis on 08-26-2022 Estimated Creatinine Clearance Calc 96.72 ml/min [facility] Estimated GFR (MDRD) Amer 111 mL/min >60 [facility] Comment on above: GFR Calc Estimated GFR (MDRD) Non-Af Amer 92 mL/min >60 [facility] Comment on above: Non- GFR Calc No Panel InformationOrdered By: Dr. Luis on 08-26-2022 92 mL/min >60 [facility] 111 mL/min >60 [facility] 96.72 ml/min [facility] 9.2 RATIO 10-20 [facility] 27.0 mmol/L 21.0-32.0 [facility] Serum or plasma calcium mg urement (mass/volume)Ordered By: Dr. Luis on 08-26-2022 Calcium [Mass/Vol] 8.6 mg/dL 8.5-10.1 [facility] Serum or plasma creatinine m easurement (mass/volume)Ordered By: Dr. Luis on 08-26-2022 Creatinine [Mass/Vol] 0.76 mg/dL 0.55-1.02 [facility] Comment on above: The validity of the calculated GFR & GFRAA in patients over 70 years has not been determined. Clinical correlation is essential. Serum or plasma urea nitroge n measurement (mass/volume)Ordered By: Dr. Luis on 08-26-2022 Urea nitrogen [Mass/Vol] 7 mg/dL 7-18 [facility] Thin prep Papanicolaou smear with manual screeningOrdered By: Dr. Luis on 08-26-2022 Thin prep Papanicolaou smear with manual screening 6 5-15 [facility] Absolute lymphocyte countOrd ered By: Dr. Luis on 08-17-2022 Lymphocytes Auto (Unsp spec) [#/Vol] 1.31 10*3/uL 0.83-4.51 [facility] Basophil percentageOrdered B y: Dr. Luis on 08-17-2022 Basophil percentage 128 mg/dL 74-106 [facility] Basophil percentage 138 mmol/L 136-145 [facility] Basophil percentage 3.9 mmol/L 3.5-5.1 [facility] Basophil percentage 106 mmol/L 98-107 [facility] Basophils (Bld) [#/Vol] 5.2 10*3/uL 4.4-11.0 [facility] Basophils (Bld) [#/Vol] 3.2 10*3/uL 2.0-7.7 [facility] Basophils/100 WBC (Bld) 62.1 % 47-70 [facility] Basophils/100 WBC (Bld) 4.0 % 0-5 [facility] Basophils/100 WBC (Bld) 0.4 % 0-1 [facility] Basophil percentageOrdered B y: Dimple Luis on 08-17-2022 Chloride [Moles/Vol] 106 mmol/L 98-107 [facility] Eosinophils/100 WBC (Bld) 4.0 % 0-5 [facility] Glucose [Mass/Vol] 128 mg/dL 74-106 [facility] Comment on above: Fasting Glucose resu lt greater than or equal to 126 mg/dL suggests DIABETES MELLITUS per A.D.A. criteria. Neutrophils (Bld) [#/Vol] 3.2 10*3/uL 2.0-7.7 [facility] Neutrophils/100 WBC (Bld) 62.1 % 47-70 [facility] Potassium [Moles/Vol] 3.9 mmol/L 3.5-5.1 [facility] Sodium [Moles/Vol] 138 mmol/L 136-145 [facility] WBC (Bld) [#/Vol] 5.2 10*3/uL 4.4-11.0 [facility] Beta hCG serum qualOrdered B y: Dr. Luis on 08-17-2022 Beta HCG ( test) Ql Negative [facility] Blood erythrocytes count (nu mber/volume)Ordered By: Dr. Luis on 08-17-2022 RBC (Bld) [#/Vol] 5.00 10*6/uL 4.2-5.4 [facility] Blood hemoglobin measurement (mass/volume)Ordered By: Dr. Luis on 08-17-2022 Hemoglobin (Bld) [Mass/Vol] 13.8 g/dL 12.0-15.0 [facility] Blood lymphocytes/100 leukoc ytesOrdered By: Dr. Luis on 08-17-2022 Lymphocytes/100 WBC (Bld) 25.2 % 19-41 [facility] Blood monocytes/100 leukocyt esOrdered By: Dr. Luis on 08-17-2022 Monocytes/100 WBC (Bld) 7.9 % 0-10 [facility] Blood platelet mean volumeOr dered By: Dr. Luis on 08-17-2022 Platelet mean volume (Bld) [Entitic vol] 10.8 fL 6.2-12.0 [facility] Determination of erythrocyte mean corpuscular volume (MCV)Ordered By: Dr. Luis on 08-17-2022 MCV (RBC) [Entitic vol] 85.4 fL 81-99 [facility] Hematocrit Auto (Bld) [Volum e fraction]Ordered By: Dr. Luis on 08-17-2022 Hematocrit (Bld) [Volume fraction] 42.7 % 37-47 [facility] Laboratory - Chemistry and C hemistry - challengeOrdered By: Dimple Luis on 08-17-2022 CO2 [Moles/Vol] 27.0 mmol/L 21.0-32.0 [facility] Urea nitrogen/Creatinine [Mass ratio] 13.4 mg/mg 10-20 [facility] Laboratory - Hematology and Cell countsOrdered By: Dimple Luis on 08-17-2022 Erythrocyte distribution width (RBC) [Entitic vol] 39.5 fL 35.1-43.9 [facility] Erythrocyte distribution width (RBC) [Ratio] 12.8 % 11.6-14.6 [facility] Immature granulocytes/100 WBC (Bld) 0.400 % 0.0-0.9 [facility] Comment on above: IG% - Immature Granu locytes (promyelocytes, myelocytes and metamyelocytes) > 1% indicates that a LEFT SHIFT is Present. MCH (RBC) [Entitic mass] 27.6 pg 27.0-32.0 [facility] Nucleated RBC/100 WBC (Bld) [Ratio] 0 % 0-5 [facility] Auto (RBC) [Mass/Vol]Or dered By: Dr. Luis on 08-17-2022 MCHC (RBC) [Mass/Vol] 32.3 g/dL 32-36 [facility] No Panel InformationOrdered By: Dimple Luis on 08-17-2022 Estimated Creatinine Clearance Calc 109.71 ml/min [facility] Estimated GFR (MDRD) Amer 128 mL/min >60 [facility] Comment on above: GFR Calc Estimated GFR (MDRD) Non-Af Amer 106 mL/min >60 [facility] Comment on above: Non- GFR Calc Troponin I High Sensitivity 3 pg/mL 3.0-54.0 [facility] Comment on above: Please Note: New Chantal t Units and Gender Specific Reference Ranges. For more information see Policy Stat Procedure [place] High Sensitivity Troponin (TNIH) and attachments. No Panel InformationOrdered By: Dr. Luis on 08-17-2022 27.6 pg 27.0-32.0 [facility] 12.8 % 11.6-14.6 [facility] 39.5 fl 35.1-43.9 [facility] 0.400 % 0.0-0.9 [facility] 0 % 0-5 [facility] 106 mL/min >60 [facility] 128 mL/min >60 [facility] 109.71 ml/min [facility] 13.4 RATIO 10-20 [facility] 3 pg/mL 3.0-54.0 [facility] 27.0 mmol/L 21.0-32.0 [facility] Platelets bldOrdered By: Dr. Luis on 08-17-2022 Platelets (Bld) [#/Vol] 175 10*3/uL 150-450 [facility] Serum or plasma calcium mg urement (mass/volume)Ordered By: Dr. Luis on 08-17-2022 Calcium [Mass/Vol] 8.7 mg/dL 8.5-10.1 [facility] Serum or plasma creatinine m easurement (mass/volume)Ordered By: Dr. Luis on 08-17-2022 Creatinine [Mass/Vol] 0.67 mg/dL 0.55-1.02 [facility] Comment on above: The validity of the calculated GFR & GFRAA in patients over 70 years has not been determined. Clinical correlation is essential. Serum or plasma urea nitroge n measurement (mass/volume)Ordered By: Dr. Luis on 08-17-2022 Urea nitrogen [Mass/Vol] 9 mg/dL 7-18 [facility] Thin prep Papanicolaou smear with manual screeningOrdered By: Dr. Luis on 08-17-2022 Thin prep Papanicolaou smear with manual screening 5 5-15 [facility] Absolute lymphocyte countOrd ered By: Royce Bangura on 07-17-2022 Lymphocytes Auto (Unsp spec) [#/Vol] 1.50 10*3/uL 0.83-4.51 [facility] Basophil percentageOrdered B y: Royce Bangura on 07-17-2022 Basophil percentage 123 mg/dL 74-106 [facility] Basophil percentage 6.8 g/dL 6.4-8.2 [facility] Basophil percentage 0.40 mg/dL 0.20-1.00 [facility] Basophil percentage 140 mmol/L 136-145 [facility] Basophil percentage 3.4 mmol/L 3.5-5.1 [facility] Basophil percentage 104 mmol/L 98-107 [facility] Basophils (Bld) [#/Vol] 4.1 10*3/uL 4.4-11.0 [facility] Basophils (Bld) [#/Vol] 2.1 10*3/uL 2.0-7.7 [facility] Basophils/100 WBC (Bld) 50.5 % 47-70 [facility] Basophils/100 WBC (Bld) 3.2 % 0-5 [facility] Basophils/100 WBC (Bld) 0.7 % 0-1 [facility] Blood erythrocytes count (nu mber/volume)Ordered By: Royce Bangura on 07-17-2022 RBC (Bld) [#/Vol] 4.75 10*6/uL 4.2-5.4 [facility] Blood hemoglobin measurement (mass/volume)Ordered By: Royce Bangura on 07-17-2022 Hemoglobin (Bld) [Mass/Vol] 13.1 g/dL 12.0-15.0 [facility] Blood lymphocytes/100 leukoc ytesOrdered By: Royce Bangura on 07-17-2022 Lymphocytes/100 WBC (Bld) 36.8 % 19-41 [facility] Blood monocytes/100 leukocyt esOrdered By: Royce Bangura on 07-17-2022 Monocytes/100 WBC (Bld) 8.6 % 0-10 [facility] Blood platelet mean volumeOr dered By: Royce Bangura on 07-17-2022 Platelet mean volume (Bld) [Entitic vol] 11.2 fL 6.2-12.0 [facility] Determination of erythrocyte mean corpuscular volume (MCV)Ordered By: Royce Bangura on 07-17-2022 MCV (RBC) [Entitic vol] 86.3 fL 81-99 [facility] Hematocrit Auto (Bld) [Volum e fraction]Ordered By: Royce Bangura on 07-17-2022 Hematocrit (Bld) [Volume fraction] 41.0 % 37-47 [facility] MCHC Auto (RBC) [Mass/Vol]Or dered By: Royce Bangura on 07-17-2022 MCHC (RBC) [Mass/Vol] 32.0 g/dL 32-36 [facility] No Panel InformationOrdered By: Royce Bangura on 07-17-2022 27.6 pg 27.0-32.0 [facility] 13.9 % 11.6-14.6 [facility] 43.2 fl 35.1-43.9 [facility] 0.200 % 0.0-0.9 [facility] 0 % 0-5 [facility] 94 mL/min >60 [facility] 113 mL/min >60 [facility] 98.01 ml/min [facility] 9.3 RATIO 10-20 [facility] 3.2 g/dL 2.2-4.2 [facility] 120 U/L 73-393 [facility] < 3 pg/mL 3.0-54.0 [facility] 60 U/L 45-117 [facility] 24 U/L 13-56 [facility] 29.0 mmol/L 21.0-32.0 [facility] 1.37 uIU/mL 0.358-3.74 [facility] Platelets bldOrdered By: Lita Bangura on 07-17-2022 Platelets (Bld) [#/Vol] 160 10*3/uL 150-450 [facility] Serum or plasma albumin mg urement (mass/volume)Ordered By: Royce Bangura on 07-17-2022 Albumin [Mass/Vol] 3.6 g/dL 3.2-5.0 [facility] Serum or plasma albumin/glob ulin mass ratioOrdered By: Royce Bangura on 07-17-2022 Albumin/Globulin [Mass ratio] 1.1 {ratio} 0.9-2.4 [facility] Serum or plasma calcium mg urement (mass/volume)Ordered By: Royce Bangura on 07-17-2022 Calcium [Mass/Vol] 9.1 mg/dL 8.5-10.1 [facility] Serum or plasma creatinine m easurement (mass/volume)Ordered By: Royce Bangura on 07-17-2022 Creatinine [Mass/Vol] 0.75 mg/dL 0.55-1.02 [facility] Serum or plasma urea nitroge n measurement (mass/volume)Ordered By: Royce Bangura on 07-17-2022 Urea nitrogen [Mass/Vol] 7 mg/dL 7-18 [facility] Thin prep Papanicolaou smear with manual screeningOrdered By: Royce Bangura on 07-17-2022 Thin prep Papanicolaou smear with manual screening 10 U/L 15-37 [facility] Thin prep Papanicolaou smear with manual screening 7 5-15 [facility] Absolute lymphocyte countOrd ered By: Rea oPon on 07-14-2022 Lymphocytes Auto (Unsp spec) [#/Vol] 1.51 10*3/uL 0.83-4.51 [facility] Atypical perinuclear antineu trophil cytoplasmic antibodies measurementOrdered By: Rea Poon on 07-14-2022 Neutrophil cytoplasmic Ab.perinuclear.atypical IF (S) [Titer] <1:20 titer Neg:<1:20 [facility] Basophil percentageOrdered B y: Rea Poon on 07-14-2022 Basophil percentage 118 mg/dL 74-106 [facility] Basophil percentage 7.2 g/dL 6.4-8.2 [facility] Basophil percentage 0.40 mg/dL 0.20-1.00 [facility] Basophil percentage 138 mmol/L 136-145 [facility] Basophil percentage 3.4 mmol/L 3.5-5.1 [facility] Basophil percentage 103 mmol/L 98-107 [facility] Basophil percentage < 0.2 AI 0.0-0.9 [facility] Basophils (Bld) [#/Vol] 6.2 10*3/uL 4.4-11.0 [facility] Basophils (Bld) [#/Vol] 3.9 10*3/uL 2.0-7.7 [facility] Basophils/100 WBC (Bld) 63.9 % 47-70 [facility] Basophils/100 WBC (Bld) 2.9 % 0-5 [facility] Basophils/100 WBC (Bld) 0.5 % 0-1 [facility] Blood erythrocytes count (nu mber/volume)Ordered By: Rea Poon on 07-14-2022 RBC (Bld) [#/Vol] 4.95 10*6/uL 4.2-5.4 [facility] Blood hemoglobin measurement (mass/volume)Ordered By: Rea Poon on 07-14-2022 Hemoglobin (Bld) [Mass/Vol] 13.7 g/dL 12.0-15.0 [facility] Blood lymphocytes/100 leukoc ytesOrdered By: Rea Poon on 07-14-2022 Lymphocytes/100 WBC (Bld) 24.5 % 19-41 [facility] Blood monocytes/100 leukocyt esOrdered By: Rea Poon on 07-14-2022 Monocytes/100 WBC (Bld) 7.9 % 0-10 [facility] Blood platelet mean volumeOr dered By: Rea Poon on 07-14-2022 Platelet mean volume (Bld) [Entitic vol] 11.2 fL 6.2-12.0 [facility] Determination of erythrocyte mean corpuscular volume (MCV)Ordered By: Rea Poon on 07-14-2022 MCV (RBC) [Entitic vol] 86.5 fL 81-99 [facility] Erythrocyte sedimentation ra teOrdered By: Rea Poon on 07-14-2022 ESR (Bld) [Velocity] 2 mm/h 0-30 [facility] Hematocrit Auto (Bld) [Volum e fraction]Ordered By: Rea Poon on 07-14-2022 Hematocrit (Bld) [Volume fraction] 42.8 % 37-47 [facility] MCHC Auto (RBC) [Mass/Vol]Or dered By: Rea Poon on 07-14-2022 MCHC (RBC) [Mass/Vol] 32.0 g/dL 32-36 [facility] No Panel InformationOrdered By: Rea Poon on 07-14-2022 <2 U/mL 0-5 [facility] 27.7 pg 27.0-32.0 [facility] 14.3 % 11.6-14.6 [facility] 44.9 fl 35.1-43.9 [facility] 0.300 % 0.0-0.9 [facility] 0 % 0-5 [facility] 83 mL/min >60 [facility] 100 mL/min >60 [facility] 7.2 RATIO 10-20 [facility] 3.5 g/dL 2.2-4.2 [facility] 60 U/L 45-117 [facility] 25 U/L 13-56 [facility] 30.0 mmol/L 21.0-32.0 [facility] 0.3 AI 0.0-0.9 [facility] <0.2 AI 0.0-0.9 [facility] Negative Negative [facility] Platelets bldOrdered By: Eleanor Poon on 07-14-2022 Platelets (Bld) [#/Vol] 180 10*3/uL 150-450 [facility] Serum DNA double strand anti body assay (units/volume)Ordered By: Rea Poon on 07-14-2022 DNA double strand Ab Qn (S) [IU]/mL 0-9 [facility] Serum IgA measurement (units /volume)Ordered By: Rea Poon on 07-14-2022 IgA Qn (S) 19 mg/dL 87-352 [facility] Serum Alise-1 antibody assay (u nits/volume)Ordered By: Rea Poon on 07-14-2022 Alise-1 extractable nuclear Ab Qn (S) <0.2 AI 0.0-0.9 [facility] Serum Scl-70 extractable nuc lear antibody assay (units/volume)Ordered By: Rea Poon on 07-14-2022 SCL-70 extractable nuclear Ab Qn (S) <0.2 AI 0.0-0.9 [facility] Serum Freedman extractable nucl ear antibody detectionOrdered By: Rea Poon on 07-14-2022 Freedman extractable nuclear Ab Ql (S) <0.2 AI 0.0-0.9 [facility] Serum classic neutrophil cyt oplasmic antibody assay (units/volume)Ordered By: Rea Poon on 07-14-2022 Neutrophil cytoplasmic Ab.classic Qn (S) <1:20 titer Neg:<1:20 [facility] Serum or plasma C reactive p rotein measurement (mass/volume)Ordered By: Rea Poon on 07-14-2022 CRP [Mass/Vol] mg/L 0.0-3.0 [facility] Serum or plasma albumin mg urement (mass/volume)Ordered By: Rea Poon on 07-14-2022 Albumin [Mass/Vol] 3.7 g/dL 3.2-5.0 [facility] Serum or plasma albumin/glob ulin mass ratioOrdered By: Rea Poon on 07-14-2022 Albumin/Globulin [Mass ratio] 1.1 {ratio} 0.9-2.4 [facility] Serum or plasma calcium mg urement (mass/volume)Ordered By: Rea Poon on 07-14-2022 Calcium [Mass/Vol] 9.2 mg/dL 8.5-10.1 [facility] Serum or plasma creatinine m easurement (mass/volume)Ordered By: Rea Poon on 07-14-2022 Creatinine [Mass/Vol] 0.83 mg/dL 0.55-1.02 [facility] Serum or plasma urea nitroge n measurement (mass/volume)Ordered By: Rea Poon on 07-14-2022 Urea nitrogen [Mass/Vol] 6 mg/dL 7-18 [facility] Serum perinuclear neutrophil cytoplasmic antibody titer by immunofluorescenceOrdered By: Rea Poon on 07-14-2022 Neutrophil cytoplasmic Ab.perinuclear IF (S) [Titer] <1:20 titer Neg:<1:20 [facility] Serum tissue transglutaminas e IgA antibody assay (units/volume)Ordered By: Rea Poon on 07-14-2022 tTG IgA Qn (S) <2 U/mL 0-3 [facility] Thin prep Papanicolaou smear with manual screeningOrdered By: Rea Poon on 07-14-2022 Thin prep Papanicolaou smear with manual screening 15 U/L 15-37 [facility] Thin prep Papanicolaou smear with manual screening 5 5-15 [facility] BASIC METABOLIC PANELon 06-22 Anion gap [Moles/Vol] 11 mmol/L Normal 10 - [address] [facility] Comment on above: Performed By: #### B MP #### [address] [address] Calcium [Mass/Vol] 9.1 mg/dL Normal 8.6 - 10.[address] [facility] Comment on above: Performed By: #### B MP #### [address] [address] Chloride [Moles/Vol] 103 mmol/L Normal 98 - 107 [facility] Comment on above: Performed By: #### B MP #### [address] [address] Creatinine [Mass/Vol] 0.72 mg/dL Normal 0.50 - 1.05 [facility] Comment on above: Performed By: #### B MP #### [address] [address] eGFR FEMALE >90 Normal >90 [facility] Comment on above: Result Comment: CALC ULATIONS OF ESTIMATED GFR ARE PERFORMED USING THE 2020 CKD-EPI STUDY REFIT EQUATION WITHOUT THE RACE VARIABLE FOR THE IDMS-TRACEABLE CREATININE METHODS. https://jasn.asnjournals.org/content//ASN.2020 343447 Performed By: #### B MP #### [address] [address] Glucose [Mass/Vol] 137 mg/dL High 74 - [address] [facility] Comment on above: Performed By: #### B MP #### [place] [id number] HCO3 (Bld) [Moles/Vol] 26 mmol/L Normal 21 - 32 [facility] Comment on above: Performed By: #### B MP #### [address] [address] Potassium [Moles/Vol] 3.9 mmol/L Normal 3.5 - 5.[address] [facility] Comment on above: Performed By: #### B MP #### [place] [id number] Sodium [Moles/Vol] 136 mmol/L Normal 136 - [address] [facility] Comment on above: Performed By: #### B MP #### [address] [address] Urea nitrogen [Mass/Vol] 13 mg/dL Normal 6 - 23 [facility] Comment on above: Performed By: #### B MP #### [address] [address] CBC AND DIFFERENTIALon 07-05 % AUTOMATED IMMATURE GRAN 0.5 % Normal 0.0 - 0.9 [facility] Comment on above: Result Comment: Lyssa ture Granulocyte Count (IG) includes promyelocytes, myelocytes and metamyelocytes but does not include bands. Percent differential counts (%) should be interpreted in the context of the absolute cell counts (cells/L). Performed By: #### C BCDF #### [address] [address] Basophils (Bld) [#/Vol] 0.02 10*3/uL Normal 0.00 - 0.1 0 [facility] Comment on above: Performed By: #### C BCDF #### [address] [address] Basophils/100 WBC (Bld) 0.3 % Normal 0.0 - 2.0 [facility] Comment on above: Performed By: #### C BCDF #### [address] [address] Eosinophils (Bld) [#/Vol] 0.01 10*3/uL Normal 0.00 - 0.70 [facility] Comment on above: Performed By: #### C BCDF #### [address] [address] Eosinophils/100 WBC (Bld) 0.2 % Normal 0.0 - 6.0 [facility] Comment on above: Performed By: #### C BCDF #### [address] [address] Erythrocyte distribution width (RBC) [Ratio] 14.4 % Normal 11.5 - 14.5 [facility] Comment on above: Performed By: #### C BCDF #### [address] [address] Hematocrit (Bld) [Volume fraction] 41.8 % Normal 36.0 - 46.0 [facility] Comment on above: Performed By: #### C BCDF #### [address] [address] Hemoglobin (Bld) [Mass/Vol] 13.6 g/dL Normal 12.0 - 16.0 [facility] Comment on above: Performed By: #### C BCDF #### [address] [address] Lymphocytes (Bld) [#/Vol] 0.91 10*3/uL Low 1.20 - 4.80 [facility] Comment on above: Performed By: #### C BCDF #### [address] [address] Lymphocytes/100 WBC (Bld) 14.2 % Normal 13.0 - 44.0 [facility] Comment on above: Performed By: #### C BCDF #### [address] [address] MCHC (RBC) [Mass/Vol] 32.5 g/dL Normal 32.0 - 36.0 [facility] Comment on above: Performed By: #### C BCDF #### [address] [address] MCV (RBC) [Entitic vol] 84 fL Normal 80 - 100 [facility] Comment on above: Performed By: #### C BCDF #### [address] [address] Monocytes (Bld) [#/Vol] 0.28 10*3/uL Normal 0.10 - 1.0 0 [facility] Comment on above: Performed By: #### C BCDF #### [address] [address] Monocytes/100 WBC (Bld) 4.4 % Normal 2.0 - 10.0 [facility] Comment on above: Performed By: #### C BCDF #### [address] [address] Neutrophils (Bld) [#/Vol] 5.17 10*3/uL Normal 1.20 - 7.70 [facility] Comment on above: Result Comment: Perc ent differential counts (%) should be interpreted in the context of the absolute cell counts (cells/L). Performed By: #### C BCDF #### [address] [address] Neutrophils/100 WBC (Bld) 80.4 % Normal 40.0 - 80.0 [facility] Comment on above: Performed By: #### C BCDF #### [address] [address] Platelets (Bld) [#/Vol] 212 10*3/uL Normal 150 - 450 [facility] Comment on above: Performed By: #### C BCDF #### [address] [address] RBC 5.00 x10E12/L Normal 4.00 - 5.20 [facility] Comment on above: Performed By: #### C BCDF #### [address] [address] WBC (Bld) [#/Vol] 6.4 10*3/uL Normal 4.4 - 11.[address] [facility] Comment on above: Performed By: #### C BCDF #### [address] [address] HEPATIC FUNCTION PANELon Albumin [Mass/Vol] 4.5 g/dL Normal 3.4 - 5.[address] [facility] Comment on above: Performed By: #### H EPFP #### [address] [address] ALP [Catalytic activity/Vol] 61 U/L Normal 33 - 110 [facility] Comment on above: Performed By: #### H EPFP #### [address] [address] ALT [Catalytic activity/Vol] 13 U/L Normal 7 - 45 [facility] Comment on above: Result Comment: Kamilla ents treated with Sulfasalazine may generate falsely decreased results for ALT. Performed By: #### H EPFP #### [address] [address] AST [Catalytic activity/Vol] 11 U/L Normal 9 - 39 [facility] Comment on above: Performed By: #### H EPFP #### [address] [address] Bilirubin [Mass/Vol] 0.3 mg/dL Normal 0.0 - 1.2 [facility] Comment on above: Performed By: #### H EPFP #### [address] [address] Bilirubin.indirect [Mass/Vol] 0.1 mg/dL Normal 0.0 - 0.3 [facility] Comment on above: Performed By: #### H EPFP #### [address] [address] Protein [Mass/Vol] 7.2 g/dL Normal 6.4 - 8.[address] [facility] Comment on above: Performed By: #### H EPFP #### [address] [address] LACTATEon 07-05-2022 Lactate [Moles/Vol] 1.2 mmol/L Normal 0.4 - 2.0 [facility] Comment on above: Result Comment: Sandra puncture immediately after or during the administration of Metamizole may lead to falsely low results. Testing should be performed immediately prior to Metamizole dosing. Performed By: #### L ACT #### [address] [address] LIPASEon 07-05-2022 Lipase [Catalytic activity/Vol] 15 U/L Normal 9 - 82 [facility] Comment on above: Result Comment: Sandra puncture immediately after or during the administration of Metamizole may lead to falsely low results. Testing should be performed immediately prior to Metamizole dosing. K-bdlxwj-f-benzoquinone imine (metabolite of Acetaminophen) will generate erroneously low results in samples for patients that have taken toxic doses of acetaminophen. Performed By: #### L IPAS #### [address] [address] Provider Note - ED v3on 06-22 Provider [...] following those procedures. They were done at [place]. Patient gets most of her medical care at [facility]. 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 Sensation and motor function of extremities grossly intact. Psych: Appropriate mood and affect. I have reviewed and confirmed nurses/medics notes for patient past, social and family history. Portions of this note were dictated by speech recognition. An attempt at proof reading was made to minimize errors. Minor errors in frame feeder may be present. 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 Triage [...] Reference Range: STRAW,YELLOW Appearance, Urine CLEAR Specific [place], Urine 1.012 pH, Urine 6.0 Protein, Urine [...] SIGNS: T PRBP SpO2O2(LPM) %FiO2 Method 04-Jul-2022 23:00:[id number] 95 room air, no respiratory support 04-Jul-2022 22:35:[id number]/79 96 room air, no respiratory support 04-Jul-2022 22:09:[id number]/79 98 room air, no respiratory support 04-Jul-2022 22:05:[id number]/79 98 room air, no respiratory support [facility] MDM/ED COURSE: Patient is nontoxic appearing. I did review on the [employer] network. She had a CT abdomen pelvis on June 10. She had an ultrasound of the pelvis also at [place] on June 22 and another ultrasound at [facility] the next day on the second. I also reviewed the OARRS report which is somewhat extensive. Reassessment patient resting comfortab (more content not included)... Normal [facility] Risk Screen - Adult Emergenc yon 07-05-2022 [...] material; verbal instruction Cultural Considerationsnone Developmental Considerationsnone Evangelical Considerationsnone Learning Assessment (Other Learner): Learning Assessment (Other Learner): Other learner availableyes... Learnerspouse Factors Influencing Readiness to Learnacuteness of illness Factors that Impact Ability to Learnnone Devices/Methods Used to Communicatenone Learning Preferencesverbal instruction, written material Cultural Considerationsnone Developmental Considerationsnone Evangelical Considerationsnone Pressure Injury/TB/Substance: Pressure Injury: Do you [...] an injured patient at a Trauma Center ([facility]/[place]/[facility] a/[place]): no Electronic Signatures: Cristiana Golden ([place]) (Signed 04-Jul-2022 22:13) Authored: Preferred Language, Patient Preferred Pharmacy, Advanced Directives, Family Violence Adult, Learning Assessment (Patient), Learning Assessment (Other Learner), Pressure Injury/TB/Substance, Pressure Injury, CAGE Last Updated: 04-Jul-2022 22:13 by Cristiana Golden ([place]) [facility] Triage - EDon 07-05-2022 Triage - ED Quick Triage: Are You no Have You Given In The Last 6 Weeksno Are You Currently Breastfeedingno Chart Review: ARRIVAL INFORMATION Mode of Arrival: private vehicle CHIEF COMPLAINT LANA RIVERA is a Female patient with a chief complaint of abdominal pain (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 Patient has homicidal thoughts: no [...] Past Surgical History, Active Electronic Signatures: Cristiana Golden) (Signed 04-Jul-2022 22:12) Entered: Risk Screens, Pain, Travel History, Chart Review, Scores, Past Medical History Authored: Quick Triage, Risk Screens, Pain, Travel History, Chart Review, Scores, Past Medical History Last Updated: 04-Jul-2022 22:12 by Cristiana Golden (RN) Normal [facility] URINALYSIS WITH CULTURE IF I NDICATEDon 07-05-2022 Appearance (U) CLEAR Normal CLEAR [facility] Comment on above: Performed By: #### U ARFX #### [place] [address] Bilirubin Ql (U) Negative Normal NEGATIVE [facility] Comment on above: Performed By: #### U [place]FX #### [place] [address] Color (U) Straw Normal STRAW,YELLOW [facility] Comment on above: Performed By: #### U [place]FX #### [place] [address] Glucose Ql (U) Negative Normal NEGATIVE [facility] Comment on above: Performed By: #### U ARFX #### [place] [address] Hemoglobin Ql (U) Negative Normal NEGATIVE [facility] Comment on above: Performed By: #### U ARFX #### [place] [id number] Ketones Ql (U) Negative Normal NEGATIVE [facility] Comment on above: Performed By: #### U ARFX #### [place] [address] Leukocyte esterase Test strip Ql (U) Negative Normal NEGATIVE [facility] Comment on above: Performed By: #### U ARFX #### [place] [id number] Nitrite Ql (U) Negative Normal NEGATIVE [facility] Comment on above: Performed By: #### U ARFX #### [place] [address] pH (U) 6.0 [pH] Normal 5.0 - 8.0 [facility] Comment on above: Performed By: #### U ARFX #### [address] [address] Protein Ql (U) Negative Normal NEGATIVE [facility] Comment on above: Performed By: #### U ARFX #### [address] [address] Specific gravity (U) [Rel density] 1.012 Normal 1.005 - 1.035 [facility] Comment on above: Performed By: #### U ARFX #### [address] [address] Urobilinogen (U) [Mass/Vol] mg/dL Normal 0.0 - 1.9 [facility] Comment on above: Performed By: #### U ARFX #### [address] [address] No Panel Informationon 06-29 Negative [facility] Negative [facility] US PELVIC TRANSABDOMINAL AND TRANSVAGINAL WITH COLOR [...] MonJun 23, 2022 10:43:29 PM EST Normal [facility] Comment on above: Order Comment: Injur y/Trauma or Illness?:Illness/Other How long have you had these symptoms (acute/chronic)?:Acute Reason for exam?:r/o ovarian torsion History of cancer?:unknown Surgeries, chemotherapy, or radiation?:unknown Type of Exam?:Initial Additional signs and symptoms?:none Absolute lymphocyte countOrd ered By: Dr. Jacobs on 06-10-2022 Lymphocytes Auto (Unsp spec) [#/Vol] 0.96 10*3/uL 0.83-4.51 [facility] Basophil percentageOrdered B y: Dr. Jacobs on 06-10-2022 Basophil percentage 108 mg/dL 74-106 [facility] Basophil percentage 139 mmol/L 136-145 [facility] Basophil percentage 3.9 mmol/L 3.5-5.1 [facility] Basophil percentage 106 mmol/L 98-107 [facility] Basophils (Bld) [#/Vol] 3.6 10*3/uL 4.4-11.0 [facility] Basophils (Bld) [#/Vol] 2.1 10*3/uL 2.0-7.7 [facility] Basophils/100 WBC (Bld) 56.4 % 47-70 [facility] Basophils/100 WBC (Bld) 8.0 % 0-5 [facility] Basophils/100 WBC (Bld) 0.6 % 0-1 [facility] Blood erythrocytes count (nu mber/volume)Ordered By: Dr. Jacobs on 06-10-2022 RBC (Bld) [#/Vol] 4.73 10*6/uL 4.2-5.4 [facility] Blood hemoglobin measurement (mass/volume)Ordered By: Dr. Jacobs on 06-10-2022 Hemoglobin (Bld) [Mass/Vol] 12.9 g/dL 12.0-15.0 [facility] Blood lymphocytes/100 leukoc ytesOrdered By: Dr. Jacobs on 06-10-2022 Lymphocytes/100 WBC (Bld) 26.4 % 19-41 [facility] Blood monocytes/100 leukocyt esOrdered By: Dr. Jacobs on 06-10-2022 Monocytes/100 WBC (Bld) 8.3 % 0-10 [facility] Blood platelet mean volumeOr dered By: Dr. Jacobs on 06-10-2022 Platelet mean volume (Bld) [Entitic vol] 10.8 fL 6.2-12.0 [facility] Determination of erythrocyte mean corpuscular volume (MCV)Ordered By: Dr. Jacobs on 06-10-2022 MCV (RBC) [Entitic vol] 85.4 fL 81-99 [facility] Hematocrit Auto (Bld) [Volum e fraction]Ordered By: Dr. Jacobs on 06-10-2022 Hematocrit (Bld) [Volume fraction] 40.4 % 37-47 [facility] MCHC Auto (RBC) [Mass/Vol]Or dered By: Dr. Jacobs on 06-10-2022 MCHC (RBC) [Mass/Vol] 31.9 g/dL 32-36 [facility] No Panel InformationOrdered By: Dr. Jacobs on 06-10-2022 27.3 pg 27.0-32.0 [facility] 14.9 % 11.6-14.6 [facility] 46.7 fl 35.1-43.9 [facility] 0.300 % 0.0-0.9 [facility] 0 % 0-5 [facility] 107 mL/min >60 [facility] 129 mL/min >60 [facility] 109.71 ml/min [facility] 9.0 RATIO 10-20 [facility] 26.0 mmol/L 21.0-32.0 [facility] Platelets bldOrdered By: Dr. Jacobs on 06-10-2022 Platelets (Bld) [#/Vol] 166 10*3/uL 150-450 [facility] Serum or plasma calcium mg urement (mass/volume)Ordered By: Dr. Jacobs on 06-10-2022 Calcium [Mass/Vol] 8.3 mg/dL 8.5-10.1 [facility] Serum or plasma creatinine m easurement (mass/volume)Ordered By: Dr. Jacobs on 06-10-2022 Creatinine [Mass/Vol] 0.67 mg/dL 0.55-1.02 [facility] Serum or plasma urea nitroge n measurement (mass/volume)Ordered By: Dr. Jacobs on 06-10-2022 Urea nitrogen [Mass/Vol] 6 mg/dL 7-18 [facility] Thin prep Papanicolaou smear with manual screeningOrdered By: Dr. Jacobs on 06-10-2022 Thin prep Papanicolaou smear with manual screening 7 5-15 [facility] No Panel InformationOrdered By: Grace Cho on 05-30-2022 2.1 mg/dL 1.6-2.6 [facility] 1.56 uIU/mL 0.358-3.74 [facility] 17.6 ng/mL [facility] Absolute lymphocyte countOrd ered By: ED PROVIDER on 05-23-2022 Lymphocytes Auto (Unsp spec) [#/Vol] 1.87 10*3/uL 0.83-4.51 [facility] Basophil percentageOrdered B y: Dr. Barajas on 05-23-2022 Basophil percentage 0 SEEN /hpf 0-5 [facility] Basophil percentage 108 mg/dL 74-106 [facility] Basophil percentage 139 mmol/L 136-145 [facility] Basophil percentage 3.7 mmol/L 3.5-5.1 [facility] Basophil percentage 107 mmol/L 98-107 [facility] Basophil percentageOrdered B y: ED PROVIDER on 05-23-2022 Basophils (Bld) [#/Vol] 4.9 10*3/uL 4.4-11.0 [facility] Basophils (Bld) [#/Vol] 2.3 10*3/uL 2.0-7.7 [facility] Basophils/100 WBC (Bld) 0.6 % 0-1 [facility] Basophils/100 WBC (Bld) 46.4 % 47-70 [facility] Basophils/100 WBC (Bld) 4.5 % 0-5 [facility] Basophil percentageon 2022 Chloride [Moles/Vol] 107 mmol/L 98-107 [facility] Work Phone: Eosinophils/100 WBC (Bld) 4.5 % 0-5 [facility] Work Phone: [phone] Glucose [Mass/Vol] 108 mg/dL 74-106 [facility] Work Phone: Comment on above: Fasting Glucose resu lt from 100 to 125 mg/dL suggests IMPAIRED HOMEOSTASIS per A.D.A. criteria. Neutrophils (Bld) [#/Vol] 2.3 10*3/uL 2.0-7.7 [facility] Work Phone: Neutrophils/100 WBC (Bld) 46.4 % 47-70 [facility] Work Phone: [phone] Potassium [Moles/Vol] 3.7 mmol/L 3.5-5.1 [facility] Work Phone: Sodium [Moles/Vol] 139 mmol/L 136-145 [facility] Work Phone: WBC (Bld) [#/Vol] 4.9 10*3/uL 4.4-11.0 [facility] Work Phone: Bilirubin Test strip Ql (U)O rdered By: Dr. Barajas on 05-23-2022 Bilirubin Ql (U) Negative Negative [facility] Blood erythrocytes count (nu mber/volume)Ordered By: ED PROVIDER on 05-23-2022 RBC (Bld) [#/Vol] 4.62 10*6/uL 4.2-5.4 [facility] Blood hemoglobin measurement (mass/volume)Ordered By: ED PROVIDER on 05-23-2022 Hemoglobin (Bld) [Mass/Vol] 12.9 g/dL 12.0-15.0 [facility] Blood lymphocytes/100 leukoc ytesOrdered By: ED PROVIDER on 05-23-2022 Lymphocytes/100 WBC (Bld) 38.4 % 19-41 [facility] Blood monocytes/100 leukocyt esOrdered By: ED PROVIDER on 05-23-2022 Monocytes/100 WBC (Bld) 9.9 % 0-10 [facility] Blood platelet mean volumeOr dered By: ED PROVIDER on 05-23-2022 Platelet mean volume (Bld) [Entitic vol] 10.8 fL 6.2-12.0 [facility] Determination of erythrocyte mean corpuscular volume (MCV)Ordered By: ED PROVIDER on 05-23-2022 MCV (RBC) [Entitic vol] 85.7 fL 81-99 [facility] Hematocrit Auto (Bld) [Volum e fraction]Ordered By: ED PROVIDER on 05-23-2022 Hematocrit (Bld) [Volume fraction] 39.6 % 37-47 [facility] Ketones Test strip Ql (U)Ord ered By: Dr. Barajas on 05-23-2022 Ketones Ql (U) Negative Negative [facility] Laboratory - Chemistry and C hemistry - challengeon 05-23-2022 CO2 [Moles/Vol] 28.0 mmol/L 21.0-32.0 [facility] Work Phone: Urea nitrogen/Creatinine [Mass ratio] 14.6 mg/mg 10-20 [facility] Work Phone: Laboratory - Hematology and Cell countson 05-23-2022 Erythrocyte distribution width (RBC) [Entitic vol] 49.7 fL 35.1-43.9 [facility] Work Phone: Erythrocyte distribution width (RBC) [Ratio] 15.9 % 11.6-14.6 [facility] Work Phone: Immature granulocytes/100 WBC (Bld) 0.200 % 0.0-0.9 [facility] Work Phone: Comment on above: IG% - Immature Granu locytes (promyelocytes, myelocytes and metamyelocytes) > 1% indicates that a LEFT SHIFT is Present. MCH (RBC) [Entitic mass] 27.9 pg 27.0-32.0 [facility] Work Phone: Nucleated RBC/100 WBC (Bld) [Ratio] 0 % 0-5 [facility] Work Phone: MCHC Auto (RBC) [Mass/Vol]Or dered By: ED PROVIDER on 05-23-2022 MCHC (RBC) [Mass/Vol] 32.6 g/dL 32-36 [facility] Mucus LM Ql (Urine sed)Order ed By: Dr. Barajas on 05-23-2022 Mucus Ql (Urine sed) 0 SEEN /hpf [facility] Nitrite Test strip Ql (U)Ord ered By: Dr. Barajas on 05-23-2022 Nitrite Ql (U) Negative Negative [facility] No Panel Informationon 05-23 Estimated Creatinine Clearance Calc 108.10 ml/min [facility] Work Phone: Estimated GFR (MDRD) Amer 126 mL/min >60 [facility] Work Phone: Comment on above: GFR Calc Estimated GFR (MDRD) Non-Af Amer 104 mL/min >60 [facility] Work Phone: Comment on above: Non- GFR Calc No Panel InformationOrdered By: ED PROVIDER on 05-23-2022 27.9 pg 27.0-32.0 [facility] 15.9 % 11.6-14.6 [facility] 49.7 fl 35.1-43.9 [facility] 0.200 % 0.0-0.9 [facility] 0 % 0-5 [facility] No Panel InformationOrdered By: Dr. Barajas on 05-23-2022 104 mL/min >60 [facility] 126 mL/min >60 [facility] 108.10 ml/min [facility] 14.6 RATIO 10-20 [facility] 28.0 mmol/L 21.0-32.0 [facility] Platelets bldOrdered By: ED PROVIDER on 05-23-2022 Platelets (Bld) [#/Vol] 191 10*3/uL 150-450 [facility] Protein Test strip Ql (U)Ord ered By: Dr. Barajas on 05-23-2022 Protein Ql (U) 15 mg/dl Negative [facility] Serum or plasma calcium mg urement (mass/volume)Ordered By: Dr. Barajas on 05-23-2022 Calcium [Mass/Vol] 9.2 mg/dL 8.5-10.1 [facility] Serum or plasma creatinine m easurement (mass/volume)Ordered By: Dr. Barajas on 05-23-2022 Creatinine [Mass/Vol] 0.68 mg/dL 0.55-1.02 [facility] Comment on above: The validity of the calculated GFR & GFRAA in patients over 70 years has not been determined. Clinical correlation is essential. Serum or plasma urea nitroge n measurement (mass/volume)Ordered By: Dr. Barajas on 05-23-2022 Urea nitrogen [Mass/Vol] 10 mg/dL 7-18 [facility] Squamous epithelial cells de tection in urine sediment by light microscopyOrdered By: Dr. Barajas on 05-23-2022 Epithelial cells.squamous LM Ql (Urine sed) 5-10 SEEN /hpf 5-10 [facility] Thin prep Papanicolaou smear with manual screeningOrdered By: Dr. Barajas on 05-23-2022 Thin prep Papanicolaou smear with manual screening 4 5-15 [facility] Urine blood detectionOrdered By: Dr. Barajas on 05-23-2022 RBC Ql (U) Negative Negative [facility] RBC Ql (U) 0 SEEN /hpf 0-5 [facility] Urine clarityOrdered By: Dr. Barajas on 05-23-2022 Clarity (U) Sl. Cloudy Clear [facility] Urine color determinationOrd ered By: Dr. Barajas on 05-23-2022 Color (U) Yellow Yellow [facility] Urine glucose detectionOrder ed By: Dr. Barajas on 05-23-2022 Glucose Ql (U) Normal mg/dl Normal [facility] Urine leukocyte esterase det ection by dipstickOrdered By: Dr. Barajas on 05-23-2022 Leukocyte esterase Test strip Ql (U) Negative Negative [facility] Urine pHOrdered By: Dr. Nancy orantes on 05-23-2022 pH (U) 6.0 [pH] 5.0 - 8.0 [facility] Urine sediment bacteria coun t by microscopy (number/high power field)Ordered By: Dr. Barajas on 05-23-2022 Bacteria LM.HPF (Urine sed) [#/Area] RARE /hpf None Seen [facility] Urine specific gravity measu rementOrdered By: Dr. Barajas on 05-23-2022 Specific gravity (U) [Rel density] 1.025 1.002-1.030 [facility] Urobilinogen Auto test strip Ql (U)Ordered By: Dr. Barajas on 05-23-2022 Urobilinogen Ql (U) Normal mg/dl Normal [facility] Bacteria identified Anaer cx Nom (Unsp spec)Ordered By: Dr. Myrick on 04-19-2022 Anaerobic culture Prevotella bivia [facility] Anaerobic culture Prevotella melaninogenica [facility] Anaerobic culture Anaerobic cocci [facility] Bacteria identified Cx Nom ( Wound)Ordered By: Dr. Myrick on 04-18-2022 Routine wound culture Enterococcus faecalis [facility] No Panel InformationOrdered By: Dr. Aguila on 04-18-2022 No growth in [address] [facility] Basophil percentageOrdered B y: Dr. Myrick on 04-16-2022 Basophils (Bld) [#/Vol] 6.0 10*3/uL 4.4-11.0 [facility] Basophil percentageon 2021 WBC (Bld) [#/Vol] 6.0 10*3/uL 4.4-11.0 [facility] Work Phone: Blood erythrocytes count (nu mber/volume)Ordered By: Dr. Myrick on 04-16-2022 RBC (Bld) [#/Vol] 3.88 10*6/uL 4.2-5.4 [facility] Blood hemoglobin measurement (mass/volume)Ordered By: Dr. Myrick on 04-16-2022 Hemoglobin (Bld) [Mass/Vol] 10.4 g/dL 12.0-15.0 [facility] Blood platelet mean volumeOr dered By: Dr. Myrick on 04-16-2022 Platelet mean volume (Bld) [Entitic vol] 10.2 fL 6.2-12.0 [facility] Determination of erythrocyte mean corpuscular volume (MCV)Ordered By: Dr. Myrick on 04-16-2022 MCV (RBC) [Entitic vol] 84.8 fL 81-99 [facility] Hematocrit Auto (Bld) [Volum e fraction]Ordered By: Dr. Myrick on 04-16-2022 Hematocrit (Bld) [Volume fraction] 32.9 % 37-47 [facility] Laboratory - Hematology and Cell countson 04-16-2022 Erythrocyte distribution width (RBC) [Entitic vol] 38.4 fL 35.1-43.9 [facility] Work Phone: Erythrocyte distribution width (RBC) [Ratio] 12.5 % 11.6-14.6 [facility] Work Phone: MCH (RBC) [Entitic mass] 26.8 pg 27.0-32.0 [facility] Work Phone: MCHC Auto (RBC) [Mass/Vol]Or dered By: Dr. Myrick on 04-16-2022 MCHC (RBC) [Mass/Vol] 31.6 g/dL 32-36 [facility] No Panel InformationOrdered By: Dr. Myrick on 04-16-2022 26.8 pg 27.0-32.0 [facility] 12.5 % 11.6-14.6 [facility] 38.4 fl 35.1-43.9 [facility] Platelets bldOrdered By: Dr. Myrick on 04-16-2022 Platelets (Bld) [#/Vol] 205 10*3/uL 150-450 [facility] Glucose Glucometer (dC) [M ass/Vol]Ordered By: Dr. Moore on 04-15-2022 Glucose [Mass/Vol] 146 mg/dL 74-106 [facility] Comment on above: MANAGEMENT OF PATIEN T CARE PER NURSING PROTOCOL Gram stain for investigation of transfusion reactionOrdered By: Dr. Myrick on 04-15-2022 Microscopic observation Gram stain Nom (Unsp spec) [facility] No Panel Informationon 04-15 Thyroid Stimulating Hormone (TSH) 4.08 uIU/mL 0.358-3.74 [facility] Work Phone: No Panel InformationOrdered By: Dr. Garcia on 04-15-2022 4.08 uIU/mL 0.358-3.74 [facility] Whole blood hemoglobin A1c/t otal hemoglobin ratio (mass fraction)Ordered By: Dr. Garcia on 04-15-2022 HbA1c (Bld) [Mass fraction] 5.6 % 3.8-5.6 [facility] Comment on above: Normal < 5.7 % Predi abetic 5.7 - 6.4 % Diabetic >or= 6.5 % Please note range changes. Absolute lymphocyte countOrd ered By: Dr. Moore on 04-14-2022 Lymphocytes Auto (Unsp spec) [#/Vol] 1.36 10*3/uL 0.83-4.51 [facility] Basophil percentageOrdered B y: Dr. Myrick on 04-14-2022 Basophil percentage 122 mg/dL 74-106 [facility] Basophil percentage 7.5 g/dL 6.4-8.2 [facility] Basophil percentage 0.40 mg/dL 0.20-1.00 [facility] Basophil percentage 135 mmol/L 136-145 [facility] Basophil percentage 3.6 mmol/L 3.5-5.1 [facility] Basophil percentage 100 mmol/L 98-107 [facility] Basophil percentageOrdered B y: Dr. Moore on 04-14-2022 Basophils (Bld) [#/Vol] 5.8 10*3/uL 2.0-7.7 [facility] Basophils/100 WBC (Bld) 0.4 % 0-1 [facility] Basophils/100 WBC (Bld) 69.4 % 47-70 [facility] Basophils/100 WBC (Bld) 2.3 % 0-5 [facility] Basophil percentageon 2021 Bilirubin [Mass/Vol] 0.40 mg/dL 0.20-1.00 [facility] Work Phone: Comment on above: For patients on eltr ombopag therapy, use of Dimension [place] TBIL is not recommended. Chloride [Moles/Vol] 100 mmol/L 98-107 [facility] Work Phone: Eosinophils/100 WBC (Bld) 2.3 % 0-5 [facility] Work Phone: Glucose [Mass/Vol] 122 mg/dL 74-106 [facility] Work Phone: Comment on above: Fasting Glucose resu lt from 100 to 125 mg/dL suggests IMPAIRED HOMEOSTASIS per A.D.A. criteria. Neutrophils (Bld) [#/Vol] 5.8 10*3/uL 2.0-7.7 [facility] Work Phone: [phone] Neutrophils/100 WBC (Bld) 69.4 % 47-70 [facility] Work Phone: [phone] Potassium [Moles/Vol] 3.6 mmol/L 3.5-5.1 [facility] Work Phone: [phone] Protein [Mass/Vol] 7.5 g/dL 6.4-8.2 [facility] Work Phone: [phone] Sodium [Moles/Vol] 135 mmol/L 136-145 [facility] Work Phone: Blood lymphocytes/100 leukoc ytesOrdered By: Dr. Moore on 04-14-2022 Lymphocytes/100 WBC (Bld) 16.2 % 19-41 [facility] Blood monocytes/100 leukocyt esOrdered By: [address] Moore on 04-14-2022 Monocytes/100 WBC (Bld) 11.5 % 0-10 [facility] Laboratory - Chemistry and C hemistry - challengeon 04-14-2022 ALP [Catalytic activity/Vol] 77 U/L 45-117 [facility] Work Phone: [phone] ALT [Catalytic activity/Vol] 16 U/L 13-56 [facility] Work Phone: [phone] CO2 [Moles/Vol] 26.0 mmol/L 21.0-32.0 [facility] Work Phone: Globulin (S) [Mass/Vol] 4.3 g/dL 2.2-4.2 [facility] Work Phone: [phone] Urea nitrogen/Creatinine [Mass ratio] 10.6 mg/mg 10-20 [facility] Work [phone] Laboratory - Hematology and Cell countson 04-14-2022 Immature granulocytes/100 WBC (Bld) 0.200 % 0.0-0.9 [facility] Work Phone: Comment on above: IG% - Immature Granu locytes (promyelocytes, myelocytes and metamyelocytes) > 1% indicates that a LEFT SHIFT is Present. Nucleated RBC/100 WBC (Bld) [Ratio] 0 % 0-5 [facility] Work Phone: No Panel Informationon 04-14 Estimated Creatinine Clearance Calc 95.11 ml/min [facility] Work Phone: Estimated GFR (MDRD) Amer 113 mL/min >60 [facility] Work Phone: Comment on above: GFR Calc Estimated GFR (MDRD) Non-Af Amer 93 mL/min >60 [facility] Work Phone: Comment on above: Non- GFR Calc No Panel InformationOrdered By: Dr. Moore on 04-14-2022 0.200 % 0.0-0.9 [facility] 0 % 0-5 [facility] No Panel InformationOrdered By: Dr. Myrick on 04-14-2022 93 mL/min >60 [facility] 113 mL/min >60 [facility] 95.11 ml/min [facility] 10.6 RATIO 10-20 [facility] 4.3 g/dL 2.2-4.2 [facility] 77 U/L 45-117 [facility] 16 U/L 13-56 [facility] 26.0 mmol/L 21.0-32.0 [facility] Serum or plasma albumin mg urement (mass/volume)Ordered By: Dr. Myrick on 04-14-2022 Albumin [Mass/Vol] 3.2 g/dL 3.2-5.0 [facility] Serum or plasma albumin/glob ulin mass ratioOrdered By: Dr. Myrick on 04-14-2022 Albumin/Globulin [Mass ratio] 0.7 {ratio} 0.9-2.4 [facility] Serum or plasma calcium mg urement (mass/volume)Ordered By: Dr. Myrick on 04-14-2022 Calcium [Mass/Vol] 9.1 mg/dL 8.5-10.1 [facility] Serum or plasma creatinine m easurement (mass/volume)Ordered By: Dr. Myrick on 04-14-2022 Creatinine [Mass/Vol] 0.75 mg/dL 0.55-1.02 [facility] Comment on above: The validity of the calculated GFR & GFRAA in patients over 70 years has not been determined. Clinical correlation is essential. Serum or plasma urea nitroge n measurement (mass/volume)Ordered By: Dr. Myrick on 04-14-2022 Urea nitrogen [Mass/Vol] 8 mg/dL 7-18 [facility] Thin prep Papanicolaou smear with manual screeningOrdered By: Dr. Myrick on 04-14-2022 Thin prep Papanicolaou smear with manual screening 8 U/L 15-37 [facility] Thin prep Papanicolaou smear with manual screening 9 5-15 [facility] INR in Blood by Coagulation assayOrdered By: Dr. Moore on 04-13-2022 INR Coag (Bld) [Relative time] 1.2 {INR} [facility] Laboratory - Coagulationon 1 06-13-2021 PT Coag (PPP) [Time] 14.4 s 11.7-14.9 [facility] Work Phone: No Panel InformationOrdered By: Dr. Moore on 04-13-2022 14.4 SECONDS 11.7-14.9 [facility] Absolute lymphocyte counton 04-12-2022 Lymphocytes Auto (Unsp spec) [#/Vol] 0.96 10*3/uL 0.83-4.51 [facility] Work Phone: Basophil percentageOrdered B y: Dr. Aguila on 04-12-2022 Basophil percentage 0 SEEN /hpf 0-5 [facility] Basophil percentage 1.6 mmol/L 0.4-2.0 [facility] Basophil percentageon 2021 Basophils/100 WBC (Bld) 0.4 % 0-1 [facility] Work Phone: Chloride [Moles/Vol] 102 mmol/L 98-107 [facility] Work Phone: Eosinophils/100 WBC (Bld) 0.8 % 0-5 [facility] Work Phone: [phone] Glucose [Mass/Vol] 109 mg/dL 74-106 [facility] Work Phone: Comment on above: Fasting Glucose resu lt from 100 to 125 mg/dL suggests IMPAIRED HOMEOSTASIS per A.D.A. criteria. Lactate [Moles/Vol] 1.6 mmol/L 0.4-2.0 [facility] Work Phone: Neutrophils (Bld) [#/Vol] 6.4 10*3/uL 2.0-7.7 [facility] Work Phone: Neutrophils/100 WBC (Bld) 76.7 % 47-70 [facility] Work Phone: [phone] Potassium [Moles/Vol] 3.3 mmol/L 3.5-5.1 [facility] Work Phone: [phone] Sodium [Moles/Vol] 137 mmol/L 136-145 [facility] Work Phone: WBC (Bld) [#/Vol] 8.3 10*3/uL 4.4-11.0 [facility] Work Phone: Bilirubin Test strip Ql (U)O rdered By: Dr. Aguila on 04-12-2022 Bilirubin Ql (U) Negative Negative [facility] Blood erythrocytes count (nu mber/volume)on 04-12-2022 RBC (Bld) [#/Vol] 4.40 10*6/uL 4.2-5.4 [facility] Work Phone: Blood hemoglobin measurement (mass/volume)on 04-12-2022 Hemoglobin (Bld) [Mass/Vol] 11.9 g/dL 12.0-15.0 [facility] Work Phone: Blood lymphocytes/100 leukoc yteson 04-12-2022 Lymphocytes/100 WBC (Bld) 11.6 % 19-41 [facility] Work Phone: Blood monocytes/100 leukocyt eson 04-12-2022 Monocytes/100 WBC (Bld) 10.3 % 0-10 [facility] Work Phone: [phone] Blood platelet mean volumeon 04-12-2022 Platelet mean volume (Bld) [Entitic vol] 10.4 fL 6.2-12.0 [facility] Work Phone: [phone] Determination of erythrocyte mean corpuscular volume (MCV)on 04-12-2022 MCV (RBC) [Entitic vol] 82.3 fL 81-99 [facility] Work Phone: [phone] Hematocrit Auto (Bld) [Volum e fraction]on 04-12-2022 Hematocrit (Bld) [Volume fraction] 36.2 % 37-47 [facility] Work Phone: [phone] Influenza virus A and B and SARS-CoV-2 (COVID-19) Ag panel - Upper respiratory specimOrdered By: Dr. Aguila on 04-12-2022 SARS-CoV-2 (COVID-19) RNA JONE+probe Ql (Resp) [facility] Ketones Test strip Ql (U)Ord ered By: Dr. Aguila on 04-12-2022 Ketones Ql (U) Negative Negative [facility] Laboratory - Chemistry and C hemistry - challengeon 04-12-2022 CO2 [Moles/Vol] 28.0 mmol/L 21.0-32.0 [facility] Work Phone: [phone] Urea nitrogen/Creatinine [Mass ratio] 7.1 mg/mg 10-20 [facility] Work Phone: [phone] Laboratory - Hematology and Cell countson 04-12-2022 Erythrocyte distribution width (RBC) [Entitic vol] 37.9 fL 35.1-43.9 [facility] Work Phone: [phone] Erythrocyte distribution width (RBC) [Ratio] 12.4 % 11.6-14.6 [facility] Work Phone: [phone] Immature granulocytes/100 WBC (Bld) 0.200 % 0.0-0.9 [facility] Work Phone: [phone] Comment on above: IG% - Immature Granu locytes (promyelocytes, myelocytes and metamyelocytes) > 1% indicates that a LEFT SHIFT is Present. MCH (RBC) [Entitic mass] 27.0 pg 27.0-32.0 [facility] Work Phone: Nucleated RBC/100 WBC (Bld) [Ratio] 0 % 0-5 [facility] Work Phone: MCHC Auto (RBC) [Mass/Vol]on 04-12-2022 MCHC (RBC) [Mass/Vol] 32.9 g/dL 32-36 [facility] Work Phone: Mucus LM Ql (Urine sed)Order ed By: Dr. Aguila on 04-12-2022 Mucus Ql (Urine sed) 0 SEEN /hpf [facility] Nitrite Test strip Ql (U)Ord ered By: Dr. Aguila on 04-12-2022 Nitrite Ql (U) Negative Negative [facility] No Panel Informationon 04-12 D-Dimer Quantitative (PE/DVT) 1.56 FEU/ug/m 0.27-0.49 [facility] Work Phone: Comment on above: D-Dimer ELEVATED (>0 .49): Additional studies and clinicalassessments are indicated to conclude diagnosis of:Deep Vein Thrombosis (DVT) or Pulmonary Embolism (PE) D-Dimer ELEVATED (>0 .49): Additional studies and clinicalassessments are indicated to conclude diagnosis of:Deep Vein Thrombosis (DVT) or Pulmonary Embolism (PE)CRITICAL VALUE VERIFIED. CALLED TO SABRINA QUINN RN [id number] [facility].RESULTS READ BACK BY SAME. Previous reported result: 1.56 FEU/ug/mEdited by: ARLENE on 04/13/22:0019 AMENDED REPORT 04/13/2218 D-DIMER QUANT previously reported as: 1.56 *H FEU/ug/m D-Dimer ELEVATED (>0.49): Additional studies and clinicalassessments are indicated to conclude diagnosis of:Deep Vein Thrombosis (DVT) or Pulmonary Embolism (PE) Estimated Creatinine Clearance Calc 101.90 ml/min [facility] Work Phone: Estimated GFR (MDRD) Amer 122 mL/min >60 [facility] Work Phone: Comment on above: GFR Calc Estimated GFR (MDRD) Non-Af Amer 101 mL/min >60 [facility] Work Phone: Comment on above: Non- GFR Calc No Panel InformationOrdered By: Dr. Aguila on 04-12-2022 1.56 FEU/ug/m 0.27-0.49 [facility] Platelets bldon 04-12-2022 Platelets (Bld) [#/Vol] 255 10*3/uL 150-450 [facility] Work Phone: Protein Test strip Ql (U)Ord ered By: Dr. Aguila on 04-12-2022 Protein Ql (U) Negative Negative [facility] Serum or plasma calcium mg urement (mass/volume)on 04-12-2022 Calcium [Mass/Vol] 9.0 mg/dL 8.5-10.1 [facility] Work Phone: Serum or plasma creatinine m easurement (mass/volume)on 04-12-2022 Creatinine [Mass/Vol] 0.70 mg/dL 0.55-1.02 [facility] Work Phone: Comment on above: The validity of the calculated GFR & GFRAA in patients over 70 years has not been determined. Clinical correlation is essential. Serum or plasma urea nitroge n measurement (mass/volume)on 04-12-2022 Urea nitrogen [Mass/Vol] 5 mg/dL 7-18 [facility] Work Phone: [phone] Squamous epithelial cells de tection in urine sediment by light microscopyOrdered By: Dr. Aguila on 04-12-2022 Epithelial cells.squamous LM Ql (Urine sed) 0-5 SEEN /hpf 5-10 [facility] Thin prep Papanicolaou smear with manual screeningon 04-12-2022 Thin prep Papanicolaou smear with manual screening 7 5-15 [facility] Work Phone: Urine blood detectionOrdered By: Dr. Aguila on 04-12-2022 RBC Ql (U) Negative Negative [facility] RBC Ql (U) 0 SEEN /hpf 0-5 [facility] Urine clarityOrdered By: Dr. Aguila on 04-12-2022 Clarity (U) Clear Clear [facility] Urine color determinationOrd ered By: Dr. Aguila on 04-12-2022 Color (U) Yellow Yellow [facility] Urine glucose detectionOrder ed By: Dr. Aguila on 04-12-2022 Glucose Ql (U) Normal mg/dl Normal [facility] Urine leukocyte esterase det ection by dipstickOrdered By: Dr. Aguila on 04-12-2022 Leukocyte esterase Test strip Ql (U) 25 /ul Negative [facility] Urine pHOrdered By: Dr. Presley baxter on 04-12-2022 pH (U) 6.5 [pH] 5.0 - 8.0 [facility] Urine sediment bacteria coun t by microscopy (number/high power field)Ordered By: Dr. Aguila on 04-12-2022 Bacteria LM.HPF (Urine sed) [#/Area] 0 /[HPF] None Seen [facility] Urine specific gravity measu rementOrdered By: Dr. Aguila on 04-12-2022 Specific gravity (U) [Rel density] 1.010 1.002-1.030 [facility] Urobilinogen Auto test strip Ql (U)Ordered By: Dr. Aguila on 04-12-2022 Urobilinogen Ql (U) Normal mg/dl Normal [facility] Bacteria identified Cx Nom ( U)Ordered By: Dr. Myrick on 03-31-2022 Culture, urine Mixed Gram Pos & Gra m Neg Org [facility] Absolute lymphocyte countOrd ered By: Dr. Kulkarni on 03-30-2022 Lymphocytes Auto (Unsp spec) [#/Vol] 1.50 10*3/uL 0.83-4.51 [facility] Basophil percentageOrdered B y: Dr. Kulkarni on 03-30-2022 Basophil percentage 102 mg/dL 74-106 [facility] Basophil percentage 7.3 g/dL 6.4-8.2 [facility] Basophil percentage 0.40 mg/dL 0.20-1.00 [facility] Basophil percentage 137 mmol/L 136-145 [facility] Basophil percentage 3.8 mmol/L 3.5-5.1 [facility] Basophil percentage 105 mmol/L 98-107 [facility] Basophils (Bld) [#/Vol] 6.5 10*3/uL 4.4-11.0 [facility] Basophils (Bld) [#/Vol] 4.2 10*3/uL 2.0-7.7 [facility] Basophils/100 WBC (Bld) 0.3 % 0-1 [facility] Basophils/100 WBC (Bld) 64.8 % 47-70 [facility] Basophils/100 WBC (Bld) 4.0 % 0-5 [facility] Basophil percentageon 2021 Bilirubin [Mass/Vol] 0.40 mg/dL 0.20-1.00 [facility] Work Phone: Comment on above: For patients on eltr ombopag therapy, use of Dimension [place] TBIL is not recommended. Chloride [Moles/Vol] 105 mmol/L 98-107 [facility] Work Phone: Eosinophils/100 WBC (Bld) 4.0 % 0-5 [facility] Work Phone: Glucose [Mass/Vol] 102 mg/dL 74-106 [facility] Work Phone: Comment on above: Fasting Glucose resu lt from 100 to 125 mg/dL suggests IMPAIRED HOMEOSTASIS per A.D.A. criteria. Neutrophils (Bld) [#/Vol] 4.2 10*3/uL 2.0-7.7 [facility] Work Phone: Neutrophils/100 WBC (Bld) 64.8 % 47-70 [facility] Work Phone: Potassium [Moles/Vol] 3.8 mmol/L 3.5-5.1 [facility] Work Phone: Protein [Mass/Vol] 7.3 g/dL 6.4-8.2 [facility] Work Phone: Sodium [Moles/Vol] 137 mmol/L 136-145 [facility] Work Phone: WBC (Bld) [#/Vol] 6.5 10*3/uL 4.4-11.0 [facility] Work Phone: Blood erythrocytes count (nu mber/volume)Ordered By: Dr. Kulkarni on 03-30-2022 RBC (Bld) [#/Vol] 4.60 10*6/uL 4.2-5.4 [facility] Blood hemoglobin measurement (mass/volume)Ordered By: Dr. Kulkarin on 03-30-2022 Hemoglobin (Bld) [Mass/Vol] 13.0 g/dL 12.0-15.0 [facility] Blood lymphocytes/100 leukoc ytesOrdered By: Dr. Kulkarni on 03-30-2022 Lymphocytes/100 WBC (Bld) 23.1 % 19-41 [facility] Blood monocytes/100 leukocyt esOrdered By: Dr. Kulkarni on 03-30-2022 Monocytes/100 WBC (Bld) 7.5 % 0-10 [facility] Blood platelet mean volumeOr dered By: Dr. Kulkarni on 03-30-2022 Platelet mean volume (Bld) [Entitic vol] 10.5 fL 6.2-12.0 [facility] Determination of erythrocyte mean corpuscular volume (MCV)Ordered By: Dr. Kulkarni on 03-30-2022 MCV (RBC) [Entitic vol] 84.6 fL 81-99 [facility] Hematocrit Auto (Bld) [Volum e fraction]Ordered By: Dr. Kulkarni on 03-30-2022 Hematocrit (Bld) [Volume fraction] 38.9 % 37-47 [facility] Laboratory - Chemistry and C hemistry - challengeon 03-30-2022 ALP [Catalytic activity/Vol] 69 U/L 45-117 [facility] Work Phone: ALT [Catalytic activity/Vol] 31 U/L 13-56 [facility] Work Phone: CO2 [Moles/Vol] 27.0 mmol/L 21.0-32.0 [facility] Work Phone: Globulin (S) [Mass/Vol] 3.7 g/dL 2.2-4.2 [facility] Work Phone: [phone] Urea nitrogen/Creatinine [Mass ratio] 12.7 mg/mg 10-20 [facility] Work Phone: [phone] Bilirubin Ql (U) Negative [facility] Work Phone: [phone] Glucose Ql (U) Negative [facility] Work Phone: [phone] Ketones Ql (U) Negative [facility] Work Phone: [phone] pH (U) 6.5 [pH] [facility] Work Phone: [phone] Specific gravity (U) [Rel density] 1.025 [facility] Work Phone: [phone] Urobilinogen (U) [Mass/Vol] 0.2551610 mg/dL [facility] Work Phone: [phone] Laboratory - Hematology and Cell countson 03-30-2022 Erythrocyte distribution width (RBC) [Entitic vol] 37.9 fL 35.1-43.9 [facility] Work Phone: [phone] Erythrocyte distribution width (RBC) [Ratio] 12.5 % 11.6-14.6 [facility] Work Phone: [phone] Immature granulocytes/100 WBC (Bld) 0.300 % 0.0-0.9 [facility] Work Phone: [phone] Comment on above: IG% - Immature Granu locytes (promyelocytes, myelocytes and metamyelocytes) > 1% indicates that a LEFT SHIFT is Present. MCH (RBC) [Entitic mass] 28.3 pg 27.0-32.0 [facility] Work Phone: [phone] Nucleated RBC/100 WBC (Bld) [Ratio] 0 % 0-5 [facility] Work Phone: [phone] Hemoglobin Ql (U) Negative [facility] Work Phone: [phone] Laboratory - Specimen inform ationon 03-30-2022 Clarity (U) Clear [facility] Work Phone: [phone] Color (U) Yellow [facility] Work Phone: [phone] Laboratory - Urinalysison Nitrite Ql (U) Negative [facility] Work Phone: Protein Ql (U) Negative [facility] Work Phone: MCHC Auto (RBC) [Mass/Vol]Or dered By: Dr. Kulkarni on 03-30-2022 MCHC (RBC) [Mass/Vol] 33.4 g/dL 32-36 [facility] No Panel Informationon 03-30 Estimated Creatinine Clearance Calc 104.52 ml/min [facility] Work Phone: Estimated GFR (MDRD) Amer 121 mL/min >60 [facility] Work Phone: Comment on above: GFR Calc Estimated GFR (MDRD) Non-Af Amer 100 mL/min >60 [facility] Work Phone: Comment on above: Non- GFR Calc Urine Leukocytes Negve [facility] Work Phone: Yellow [facility] Clear [facility] Negative [facility] 1.025 [facility] 6.5 [facility] 0.2 mg/dL [facility] Negatve [facility] No Panel InformationOrdered By: Dr. Kulkarni on 03-30-2022 28.3 pg 27.0-32.0 [facility] 12.5 % 11.6-14.6 [facility] 37.9 fl 35.1-43.9 [facility] 0.300 % 0.0-0.9 [facility] 0 % 0-5 [facility] 100 mL/min >60 [facility] 121 mL/min >60 [facility] 104.52 ml/min [facility] 12.7 RATIO 10-20 [facility] 3.7 g/dL 2.2-4.2 [facility] 69 U/L 45-117 [facility] 31 U/L 13-56 [facility] 27.0 mmol/L 21.0-32.0 [facility] Platelets bldOrdered By: Dr. Kulkarni on 03-30-2022 Platelets (Bld) [#/Vol] 243 10*3/uL 150-450 [facility] Serum or plasma albumin mg urement (mass/volume)Ordered By: Dr. Kulkarni on 03-30-2022 Albumin [Mass/Vol] 3.6 g/dL 3.2-5.0 [facility] Serum or plasma albumin/glob ulin mass ratioOrdered By: Dr. Kulkarni on 03-30-2022 Albumin/Globulin [Mass ratio] 1.0 {ratio} 0.9-2.4 [facility] Serum or plasma calcium mg urement (mass/volume)Ordered By: Dr. Kulkarni on 03-30-2022 Calcium [Mass/Vol] 9.1 mg/dL 8.5-10.1 [facility] Serum or plasma creatinine m easurement (mass/volume)Ordered By: Dr. Kulkarni on 03-30-2022 Creatinine [Mass/Vol] 0.71 mg/dL 0.55-1.02 [facility] Comment on above: The validity of the calculated GFR & GFRAA in patients over 70 years has not been determined. Clinical correlation is essential. Serum or plasma urea nitroge n measurement (mass/volume)Ordered By: Dr. Kulkarni on 03-30-2022 Urea nitrogen [Mass/Vol] 9 mg/dL 7-18 [facility] Thin prep Papanicolaou smear with manual screeningOrdered By: Dr. Kulkarni on 03-30-2022 Thin prep Papanicolaou smear with manual screening 17 U/L 15-37 [facility] Thin prep Papanicolaou smear with manual screening 5 5-15 [facility] Basophil percentageOrdered B y: Dr. Moore on 03-23-2022 Basophils (Bld) [#/Vol] 9.1 10*3/uL 4.4-11.0 [facility] Basophil percentageon 2021 WBC (Bld) [#/Vol] 9.1 10*3/uL 4.4-11.0 [facility] Work Phone: Blood erythrocytes count (nu mber/volume)Ordered By: Dr. Moore on 03-23-2022 RBC (Bld) [#/Vol] 4.74 10*6/uL 4.2-5.4 [facility] Blood hemoglobin measurement (mass/volume)Ordered By: Dr. Moore on 03-23-2022 Hemoglobin (Bld) [Mass/Vol] 13.4 g/dL 12.0-15.0 [facility] Blood platelet mean volumeOr dered By: Dr. Moore on 03-23-2022 Platelet mean volume (Bld) [Entitic vol] 10.6 fL 6.2-12.0 [facility] Determination of erythrocyte mean corpuscular volume (MCV)Ordered By: Dr. Moore on 03-23-2022 MCV (RBC) [Entitic vol] 84.8 fL 81-99 [facility] Glucose Glucometer (BldC) [M ass/Vol]Ordered By: Dr. Moore on 03-23-2022 Glucose [Mass/Vol] 142 mg/dL 74-106 [facility] Comment on above: MANAGEMENT OF PATIEN T CARE PER NURSING PROTOCOL Hematocrit Auto (Bld) [Volum e fraction]Ordered By: Dr. Moore on 03-23-2022 Hematocrit (Bld) [Volume fraction] 40.2 % 37-47 [facility] Laboratory - Hematology and Cell countson 03-23-2022 Erythrocyte distribution width (RBC) [Entitic vol] 38.3 fL 35.1-43.9 [facility] Work Phone: Erythrocyte distribution width (RBC) [Ratio] 12.4 % 11.6-14.6 [facility] Work Phone: MCH (RBC) [Entitic mass] 28.3 pg 27.0-32.0 [facility] Work Phone: MCHC Auto (RBC) [Mass/Vol]Or dered By: Dr. Moore on 03-23-2022 MCHC (RBC) [Mass/Vol] 33.3 g/dL 32-36 [facility] No Panel InformationOrdered By: Dr. Moore on 03-23-2022 28.3 pg 27.0-32.0 [facility] 12.4 % 11.6-14.6 [facility] 38.3 fl 35.1-43.9 [facility] Platelets bldOrdered By: Dr. Moore on 03-23-2022 Platelets (Bld) [#/Vol] 172 10*3/uL 150-450 [facility] Absolute lymphocyte countOrd ered By: Dr. Moore on 03-22-2022 Lymphocytes Auto (Unsp spec) [#/Vol] 0.61 10*3/uL 0.83-4.51 [facility] Basophil percentageOrdered B y: Dr. Moore on 03-22-2022 Basophils (Bld) [#/Vol] 10.2 10*3/uL 2.0-7.7 [facility] Basophils/100 WBC (Bld) 0.1 % 0-1 [facility] Basophils/100 WBC (Bld) 89.1 % 47-70 [facility] Basophils/100 WBC (Bld) 0.0 % 0-5 [facility] Basophil percentageon 2021 Eosinophils/100 WBC (Bld) 0.0 % 0-5 [facility] Work Phone: Neutrophils (Bld) [#/Vol] 10.2 10*3/uL 2.0-7.7 [facility] Work Phone: Neutrophils/100 WBC (Bld) 89.1 % 47-70 [facility] Work Phone: Blood lymphocytes/100 leukoc ytesOrdered By: Dr. Moore on 03-22-2022 Lymphocytes/100 WBC (Bld) 5.3 % 19-41 [facility] Blood monocytes/100 leukocyt esOrdered By: Dr. Moore on 03-22-2022 Monocytes/100 WBC (Bld) 5.1 % 0-10 [facility] Laboratory - Chemistry and C hemistry - challengeon 03-22-2022 HCG ( test) Ql (U) Negative [facility] Work Phone: Comment on above: Very dilute urine sp ecimens, as indicated by a low specificgravity, may not contain truck sales representative levels of hCG. If is still suspected, a first morning urinespecimen should be collected 48 hours later and tested. Laboratory - Hematology and Cell countson 03-22-2022 Immature granulocytes/100 WBC (Bld) 0.400 % 0.0-0.9 [facility] Work Phone: Comment on above: IG% - Immature Granu locytes (promyelocytes, myelocytes and metamyelocytes) > 1% indicates that a LEFT SHIFT is Present. Nucleated RBC/100 WBC (Bld) [Ratio] 0 % 0-5 [facility] Work Phone: No Panel InformationOrdered By: Dr. Moore on 03-22-2022 0.400 % 0.0-0.9 [facility] 0 % 0-5 [facility] No Panel InformationOrdered By: Dr. Curry on 03-22-2022 Negative [facility] Absolute lymphocyte countOrd ered By: Dr. Melgar on 03-04-2022 Lymphocytes Auto (Unsp spec) [#/Vol] 1.33 10*3/uL 0.83-4.51 [facility] Basophil percentageOrdered B y: Dr. Melgar on 03-04-2022 Basophil percentage 87 mg/dL 74-106 [facility] Basophil percentage 139 mmol/L 136-145 [facility] Basophil percentage 4.0 mmol/L 3.5-5.1 [facility] Basophil percentage 107 mmol/L 98-107 [facility] Basophils (Bld) [#/Vol] 5.5 10*3/uL 4.4-11.0 [facility] Basophils (Bld) [#/Vol] 3.4 10*3/uL 2.0-7.7 [facility] Basophils/100 WBC (Bld) 0.5 % 0-1 [facility] Basophils/100 WBC (Bld) 61.9 % 47-70 [facility] Basophils/100 WBC (Bld) 3.5 % 0-5 [facility] Basophil percentageon 2021 Chloride [Moles/Vol] 107 mmol/L 98-107 [facility] Work Phone: [phone] Eosinophils/100 WBC (Bld) 3.5 % 0-5 [facility] Work Phone: Glucose [Mass/Vol] 87 mg/dL 74-106 [facility] Work Phone: Neutrophils (Bld) [#/Vol] 3.4 10*3/uL 2.0-7.7 [facility] Work Phone: Neutrophils/100 WBC (Bld) 61.9 % 47-70 [facility] Work Phone: Potassium [Moles/Vol] 4.0 mmol/L 3.5-5.1 [facility] Work Phone: Sodium [Moles/Vol] 139 mmol/L 136-145 [facility] Work Phone: WBC (Bld) [#/Vol] 5.5 10*3/uL 4.4-11.0 [facility] Work Phone: Blood erythrocytes count (nu mber/volume)Ordered By: Dr. Melgar on 03-04-2022 RBC (Bld) [#/Vol] 5.22 10*6/uL 4.2-5.4 [facility] Blood hemoglobin measurement (mass/volume)Ordered By: Dr. Melgar on 03-04-2022 Hemoglobin (Bld) [Mass/Vol] 15.2 g/dL 12.0-15.0 [facility] Blood lymphocytes/100 leukoc ytesOrdered By: Dr. Melgar on 03-04-2022 Lymphocytes/100 WBC (Bld) 24.4 % 19-41 [facility] Blood monocytes/100 leukocyt esOrdered By: Dr. Melgar on 03-04-2022 Monocytes/100 WBC (Bld) 9.5 % 0-10 [facility] Blood platelet mean volumeOr dered By: Dr. Melgar on 03-04-2022 Platelet mean volume (Bld) [Entitic vol] 11.1 fL 6.2-12.0 [facility] Determination of erythrocyte mean corpuscular volume (MCV)Ordered By: Dr. Melgar on 03-04-2022 MCV (RBC) [Entitic vol] 87.0 fL 81-99 [facility] Hematocrit Auto (Bld) [Volum e fraction]Ordered By: Dr. Melgar on 03-04-2022 Hematocrit (Bld) [Volume fraction] 45.4 % 37-47 [facility] Laboratory - Chemistry and C hemistry - challengeon 03-04-2022 CO2 [Moles/Vol] 27.0 mmol/L 21.0-32.0 [facility] Work Phone: Urea nitrogen/Creatinine [Mass ratio] 12.2 mg/mg 10-20 [facility] Work Phone: [phone] Laboratory - Hematology and Cell countson 03-04-2022 Erythrocyte distribution width (RBC) [Entitic vol] 39.7 fL 35.1-43.9 [facility] Work Phone: [phone] Erythrocyte distribution width (RBC) [Ratio] 12.5 % 11.6-14.6 [facility] Work Phone: [phone] Immature granulocytes/100 WBC (Bld) 0.200 % 0.0-0.9 [facility] Work Phone: Comment on above: IG% - Immature Granu locytes (promyelocytes, myelocytes and metamyelocytes) > 1% indicates that a LEFT SHIFT is Present. MCH (RBC) [Entitic mass] 29.1 pg 27.0-32.0 [facility] Work Phone: Nucleated RBC/100 WBC (Bld) [Ratio] 0 % 0-5 [facility] Work Phone: [phone] MCHC Auto (RBC) [Mass/Vol]Or dered By: Dr. Melgar on 03-04-2022 MCHC (RBC) [Mass/Vol] 33.5 g/dL 32-36 [facility] No Panel Informationon 03-04 Estimated Creatinine Clearance Calc 86.99 ml/min [facility] Work Phone: Estimated GFR (MDRD) Amer 102 mL/min >60 [facility] Work Phone: [phone] Comment on above: GFR Calc Estimated GFR (MDRD) Non-Af Amer 84 mL/min >60 [facility] Work Phone: Comment on above: Non- GFR Calc No Panel InformationOrdered By: Dr. Melgar on 10-14-2022 29.1 pg 27.0-32.0 [facility] 12.5 % 11.6-14.6 [facility] 39.7 fl 35.1-43.9 [facility] 0.200 % 0.0-0.9 [facility] 0 % 0-5 [facility] 84 mL/min >60 [facility] 102 mL/min >60 [facility] 86.99 ml/min [facility] 12.2 RATIO 10-20 [facility] 27.0 mmol/L 21.0-32.0 [facility] Platelets bldOrdered By: Dr. Melgar on 03-04-2022 Platelets (Bld) [#/Vol] 182 10*3/uL 150-450 [facility] Serum or plasma calcium mg urement (mass/volume)Ordered By: Dr. Melgar on 03-04-2022 Calcium [Mass/Vol] 9.1 mg/dL 8.5-10.1 [facility] Serum or plasma creatinine m easurement (mass/volume)Ordered By: Dr. Melgar on 03-04-2022 Creatinine [Mass/Vol] 0.82 mg/dL 0.55-1.02 [facility] Comment on above: The validity of the calculated GFR & GFRAA in patients over 70 years has not been determined. Clinical correlation is essential. Serum or plasma urea nitroge n measurement (mass/volume)Ordered By: Dr. Melgar on 03-04-2022 Urea nitrogen [Mass/Vol] 10 mg/dL 7-18 [facility] Thin prep Papanicolaou smear with manual screeningOrdered By: Dr. Melgar on 03-04-2022 Thin prep Papanicolaou smear with manual screening 5 5-15 [facility] Laboratory - Chemistry and C hemistry - challengeon 03-02-2022 Magnesium [Mass/Vol] 1.8 mg/dL 1.6-2.6 [facility] Work Phone: No Panel InformationOrdered By: Dr. Garcia on 03-02-2022 1.8 mg/dL 1.6-2.6 [facility] Bacteria identified Cx Nom ( U)Ordered By: Dr. Moore on 02-16-2022 Culture, urine Positive [facility] Absolute lymphocyte countOrd ered By: Dr. Moore on 02-15-2022 Lymphocytes Auto (Unsp spec) [#/Vol] 1.31 10*3/uL 0.83-4.51 [facility] Basophil percentageOrdered B y: Dr. Guzman on 02-15-2022 Basophil percentage 0-5 SEEN /hpf 0-5 [facility] Basophil percentageOrdered B y: Dr. Moore on 02-15-2022 Basophil percentage 101 mg/dL 74-106 [facility] Basophil percentage 7.3 g/dL 6.4-8.2 [facility] Basophil percentage 0.40 mg/dL 0.20-1.00 [facility] Basophil percentage 140 mmol/L 136-145 [facility] Basophil percentage 4.2 mmol/L 3.5-5.1 [facility] Basophil percentage 108 mmol/L 98-107 [facility] Basophils (Bld) [#/Vol] 4.7 10*3/uL 4.4-11.0 [facility] Basophils (Bld) [#/Vol] 2.7 10*3/uL 2.0-7.7 [facility] Basophils/100 WBC (Bld) 0.6 % 0-1 [facility] Basophils/100 WBC (Bld) 57.4 % 47-70 [facility] Basophils/100 WBC (Bld) 3.6 % 0-5 [facility] Basophil percentageon 2021 Bilirubin [Mass/Vol] 0.40 mg/dL 0.20-1.00 [facility] Work Phone: Comment on above: For patients on eltr ombopag therapy, use of Dimension [place] TBIL is not recommended. Chloride [Moles/Vol] 108 mmol/L 98-107 [facility] Work Phone: Eosinophils/100 WBC (Bld) 3.6 % 0-5 [facility] Work Phone: Glucose [Mass/Vol] 101 mg/dL 74-106 [facility] Work Phone: Comment on above: Fasting Glucose resu lt from 100 to 125 mg/dL suggests IMPAIRED HOMEOSTASIS per A.D.A. criteria. Neutrophils (Bld) [#/Vol] 2.7 10*3/uL 2.0-7.7 [facility] Work Phone: Neutrophils/100 WBC (Bld) 57.4 % 47-70 [facility] Work Phone: Potassium [Moles/Vol] 4.2 mmol/L 3.5-5.1 [facility] Work Phone: Protein [Mass/Vol] 7.3 g/dL 6.4-8.2 [facility] Work Phone: Sodium [Moles/Vol] 140 mmol/L 136-145 [facility] Work Phone: WBC (Bld) [#/Vol] 4.7 10*3/uL 4.4-11.0 [facility] Work Phone: [phone] Bilirubin Test strip Ql (U)O rdered By: Dr. Guzman on 02-15-2022 Bilirubin Ql (U) Negative Negative [facility] Blood erythrocytes count (nu mber/volume)Ordered By: Dr. Moore on 02-15-2022 RBC (Bld) [#/Vol] 4.94 10*6/uL 4.2-5.4 [facility] Blood hemoglobin measurement (mass/volume)Ordered By: Dr. Moore on 02-15-2022 Hemoglobin (Bld) [Mass/Vol] 13.9 g/dL 12.0-15.0 [facility] Blood lymphocytes/100 leukoc ytesOrdered By: Dr. Moore on 02-15-2022 Lymphocytes/100 WBC (Bld) 28.1 % 19-41 [facility] Blood monocytes/100 leukocyt esOrdered By: Dr. Moore on 02-15-2022 Monocytes/100 WBC (Bld) 10.1 % 0-10 [facility] Blood platelet mean volumeOr dered By: Dr. Moore on 02-15-2022 Platelet mean volume (Bld) [Entitic vol] 11.0 fL 6.2-12.0 [facility] Determination of erythrocyte mean corpuscular volume (MCV)Ordered By: Dr. Moore on 02-15-2022 MCV (RBC) [Entitic vol] 87.4 fL 81-99 [facility] Hematocrit Auto (Bld) [Volum e fraction]Ordered By: Dr. Moore on 02-15-2022 Hematocrit (Bld) [Volume fraction] 43.2 % 37-47 [facility] Ketones Test strip Ql (U)Ord ered By: Dr. Guzman on 02-15-2022 Ketones Ql (U) Negative Negative [facility] Laboratory - Chemistry and C hemistry - challengeon 02-15-2022 HCG ( test) Ql (U) Negative [facility] Work Phone: Comment on above: Very dilute urine sp ecimens, as indicated by a low specificgravity, may not contain truck sales representative levels of hCG. If is still suspected, a first morning urinespecimen should be collected 48 hours later and tested. ALP [Catalytic activity/Vol] 62 U/L 45-117 [facility] Work Phone: [phone] ALT [Catalytic activity/Vol] 21 U/L 13-56 [facility] Work Phone: [phone] CO2 [Moles/Vol] 29.0 mmol/L 21.0-32.0 [facility] Work Phone: [phone] Globulin (S) [Mass/Vol] 3.5 g/dL 2.2-4.2 [facility] Work Phone: [phone] Urea nitrogen/Creatinine [Mass ratio] 10.7 mg/mg 10-20 [facility] Work Phone: [phone] Laboratory - Hematology and Cell countson 02-15-2022 Erythrocyte distribution width (RBC) [Entitic vol] 40.2 fL 35.1-43.9 [facility] Work Phone: [phone] Erythrocyte distribution width (RBC) [Ratio] 12.6 % 11.6-14.6 [facility] Work Phone: [phone] Immature granulocytes/100 WBC (Bld) 0.200 % 0.0-0.9 [facility] Work Phone: [phone] Comment on above: IG% - Immature Granu locytes (promyelocytes, myelocytes and metamyelocytes) > 1% indicates that a LEFT SHIFT is Present. MCH (RBC) [Entitic mass] 28.1 pg 27.0-32.0 [facility] Work Phone: Nucleated RBC/100 WBC (Bld) [Ratio] 0 % 0-5 [facility] Work Phone: MCHC Auto (RBC) [Mass/Vol]Or dered By: Dr. Moore on 02-15-2022 MCHC (RBC) [Mass/Vol] 32.2 g/dL 32-36 [facility] Mucus LM Ql (Urine sed)Order ed By: Dr. Guzman on 02-15-2022 Mucus Ql (Urine sed) 0 SEEN /hpf [facility] Nitrite Test strip Ql (U)Ord ered By: Dr. Guzman on 02-15-2022 Nitrite Ql (U) Negative Negative [facility] No Panel InformationOrdered By: Dr. Guzman on 02-15-2022 Negative [facility] No Panel Informationon 02-15 Estimated GFR (MDRD) Amer 114 mL/min >60 [facility] Work Phone: Comment on above: GFR Calc Estimated GFR (MDRD) Non-Af Amer 94 mL/min >60 [facility] Work Phone: Comment on above: Non- GFR Calc Thyroid Stimulating Hormone (TSH) 0.62 uIU/mL 0.358-3.74 [facility] Work Phone: No Panel InformationOrdered By: Dr. Moore on 02-15-2022 28.1 pg 27.0-32.0 [facility] 12.6 % 11.6-14.6 [facility] 40.2 fl 35.1-43.9 [facility] 0.200 % 0.0-0.9 [facility] 0 % 0-5 [facility] 94 mL/min >60 [facility] 114 mL/min >60 [facility] 10.7 RATIO 10-20 [facility] 3.5 g/dL 2.2-4.2 [facility] 62 U/L 45-117 [facility] 21 U/L 13-56 [facility] 29.0 mmol/L 21.0-32.0 [facility] 0.62 uIU/mL 0.358-3.74 [facility] Platelets bldOrdered By: Dr. Moore on 02-15-2022 Platelets (Bld) [#/Vol] 175 10*3/uL 150-450 [facility] Protein Test strip Ql (U)Ord ered By: Dr. Guzman on 02-15-2022 Protein Ql (U) Negative Negative [facility] Serum or plasma albumin mg urement (mass/volume)Ordered By: Dr. Moore on 02-15-2022 Albumin [Mass/Vol] 3.8 g/dL 3.2-5.0 [facility] Serum or plasma albumin/glob ulin mass ratioOrdered By: Dr. Moore on 02-15-2022 Albumin/Globulin [Mass ratio] 1.1 {ratio} 0.9-2.4 [facility] Serum or plasma calcium mg urement (mass/volume)Ordered By: Dr. Moore on 02-15-2022 Calcium [Mass/Vol] 9.1 mg/dL 8.5-10.1 [facility] Serum or plasma creatinine m easurement (mass/volume)Ordered By: Dr. Moore on 02-15-2022 Creatinine [Mass/Vol] 0.75 mg/dL 0.55-1.02 [facility] Comment on above: The validity of the calculated GFR & GFRAA in patients over 70 years has not been determined. Clinical correlation is essential. Serum or plasma urea nitroge n measurement (mass/volume)Ordered By: Dr. Moore on 02-15-2022 Urea nitrogen [Mass/Vol] 8 mg/dL 7-18 [facility] Squamous epithelial cells de tection in urine sediment by light microscopyOrdered By: Dr. Guzman on 02-15-2022 Epithelial cells.squamous LM Ql (Urine sed) 5-10 SEEN /hpf 5-10 [facility] Thin prep Papanicolaou smear with manual screeningOrdered By: Dr. Moore on 02-15-2022 Thin prep Papanicolaou smear with manual screening 11 U/L 15-37 [facility] Thin prep Papanicolaou smear with manual screening 3 5-15 [facility] Urine blood detectionOrdered By: Dr. Guzman on 02-15-2022 RBC Ql (U) Negative Negative [facility] RBC Ql (U) 0 SEEN /hpf 0-5 [facility] Urine clarityOrdered By: Dr. Guzman on 02-15-2022 Clarity (U) Sl. Cloudy Clear [facility] Urine color determinationOrd ered By: Dr. Guzman on 02-15-2022 Color (U) Yellow Yellow [facility] Urine glucose detectionOrder ed By: Dr. Guzman on 02-15-2022 Glucose Ql (U) Normal mg/dl Normal [facility] Urine leukocyte esterase det ection by dipstickOrdered By: Dr. Guzman on 02-15-2022 Leukocyte esterase Test strip Ql (U) 25 /ul Negative [facility] Urine pHOrdered By: Dr. Guzman o n 02-15-2022 pH (U) 6.0 [pH] 5.0 - 8.0 [facility] Urine sediment bacteria coun t by microscopy (number/high power field)Ordered By: Dr. Guzman on 02-15-2022 Bacteria LM.HPF (Urine sed) [#/Area] 1 /[HPF] None Seen [facility] Urine specific gravity measu rementOrdered By: Dr. Guzman on 02-15-2022 Specific gravity (U) [Rel density] 1.015 1.002-1.030 [facility] Urobilinogen Auto test strip Ql (U)Ordered By: Dr. Guzman on 02-15-2022 Urobilinogen Ql (U) Normal mg/dl Normal [facility] Whole blood hemoglobin A1c/t otal hemoglobin ratio (mass fraction)Ordered By: Dr. Moore on 02-15-2022 HbA1c (Bld) [Mass fraction] 5.5 % 3.8-5.6 [facility] Comment on above: Normal < 5.7 % Predi abetic 5.7 - 6.4 % Diabetic >or= 6.5 % Please note range changes. Atypical perinuclear antineu trophil cytoplasmic antibodies measurementon 01-13-2022 Neutrophil cytoplasmic Ab.perinuclear.atypical IF (S) [Titer] <1:20 titer Neg:<1:20 [facility] Work Phone: Comment on above: The atypical pANCA p attern has been observed in asignificant percentage of patients with ulcerative colitis,primary sclerosing cholangitis and autoimmune hepatitis. Basophil percentageon 2021 Ammonia (P) [Moles/Vol] 15.0 umol/L 11-32 [facility] Work Phone: [phone] Basophil percentage < 0.2 AI 0.0-0.9 [facility] Work Phone: [phone] Cholesterol [Mass/Vol] 220 mg/dL <200 [facility] Work Phone: [phone] Comment on above: <200 mg/dL Desirable 200-240 mg/dL Borderline >240 mg/dL High Risk Triglyceride [Mass/Vol] 175 mg/dL <199 [facility] Work Phone: Comment on above: The drugs N-Acetylcy steine and Metamizole may falsely depress this assay.Serum Triglycerides Reference Interval Normal <150 mg/dL Borderline high 150 - 199 mg/dL High 200 - 499 mg/dL Very High > or = 500 mg/dL Erythrocyte sedimentation ra funmi 01-13-2022 ESR (Bld) [Velocity] 6 mm/h 0-30 [facility] Work Phone: HIV 1 and HIV-2 antibody ass ay with HIV-1 p24 antigen detectionon 01-13-2022 HIV 1+2 Ab+HIV1 p24 Ag IA Ql Non-Reactive Nonreactive [facility] Work Phone: [phone] INR in Blood by Coagulation assayon 01-13-2022 INR Coag (Bld) [Relative time] 1.0 {INR} [facility] Work Phone: [phone] Laboratory - Coagulationon 0 01-13-2022 PT Coag (PPP) [Time] 12.6 s 11.7-14.9 [facility] Work Phone: [phone] No Panel Informationon 01-13 Centromere B Antibody <0.2 AI 0.0-0.9 [facility] Work Phone: [phone] Ceruloplasmin 22.7 mg/dL 19.0-39.0 [facility] Work Phone: [phone] Haptoglobin 142 mg/dL 33-278 [facility] Work Phone: [phone] Comment on above: Performed at: - [facility] [place], [place] [id number] Director: Viraj Sandoval PhD, Phone: [phone] at: [facility] [id number] Director: Emily Bacon MD, Phone: [phone] Hepatitis A IgM Antibody Negative Negative [facility] Work Phone: [phone] Hepatitis B Core IgM Antibody Negative Negative [facility] Work Phone: [phone] Hepatitis C Antibody (EIA) <0.1 s/co ratio 0.0-0.9 [facility] Work Phone: [phone] Hepatitis C Antibody Comment Comment . [facility] Work Phone: [phone] Comment on above: NegativeNot infected with HCV, unless recent infection issuspected or other evidence exists to indicate HCVinfection. [employer] Antibody 0.3 AI 0.0-0.9 [facility] Work Phone: [phone] Thyroid Stimulating Hormone (TSH) 0.59 uIU/mL 0.358-3.74 [facility] Work Phone: [phone] Serum DNA double strand anti body assay (units/volume)on 01-13-2022 DNA double strand Ab Qn (S) 1 [IU]/mL 0-9 [facility] Work Phone: [phone] Comment on above: Negative <5 Equivoca l 5 - 9 Positive >9 Serum Alise-1 antibody assay (u nits/volume)on 01-13-2022 Alise-1 extractable nuclear Ab Qn (S) <0.2 AI 0.0-0.9 [facility] Work Phone: [phone] Serum Scl-70 extractable nuc lear antibody assay (units/volume)on 01-13-2022 SCL-70 extractable nuclear Ab Qn (S) <0.2 AI 0.0-0.9 [facility] Work Phone: Serum Freedman extractable nucl ear antibody detectionon 01-13-2022 Freedman extractable nuclear Ab Ql (S) <0.2 AI 0.0-0.9 [facility] Work Phone: Serum classic neutrophil cyt oplasmic antibody assay (units/volume)on 01-13-2022 Neutrophil cytoplasmic Ab.classic Qn (S) <1:20 titer Neg:<1:20 [facility] Work Phone: Serum mitochondria antibody detectionon 01-13-2022 Mitochondria Ab Ql (S) <20.0 Units 0.0-20.0 [facility] Work Phone: Comment on above: Negative 0.0 - 20.0 Equivocal 20.1 - 24.9 Positive >24.9Mitochondrial (M2) Antibodies are found in 90-96% ofpatients with primary biliary cirrhosis.Performed at: [email or web address] [facility] [id number] Director: Viraj Sandoval PhD, Phone: [phone] Serum or plasma C reactive p rotein measurement (mass/volume)on 01-13-2022 CRP [Mass/Vol] mg/L 0.0-3.0 [facility] Work Phone: Comment on above: C-Reactive Protein ( CRP) provides useful information for thediagnosis, therapy and monitoring of inflammatory processesand associated diseases. For the evaluation of Relative Riskfor Cardiovascular Disease, a High Sensitivity CRP (HSCRP)should be ordered. Serum or plasma actin IgG an tibody assay (units/volume)on 01-13-2022 Actin IgG Qn 5 Units 0-19 [facility] Work Phone: Comment on above: Negative 0 - 19 Weak positive 20 - 30 Moderate to strong positive >30 Actin Antibodies are found in 52-85% of patients with autoimmune hepatitis or chronic active hepatitis and in 22% of patients with primary biliary cirrhosis. Serum or plasma [id number] protein tumor marker measurement (units/volume)on 01-13-2022 AFP.tumor marker Qn 2.5 ng/mL 0.0-6.4 [facility] Work Phone: [phone] Comment on above: [facility] El ectrochemiluminescence Immunoassay(ECLIA)Values obtained with different assay methods or kits cannotbe used interchangeably. Results cannot be interpreted asabsolute evidence of the presence or absence of malignantdisease.This test is not interpretable in females. Serum or plasma angiotensin converting enzyme measurement (enzymatic activity/volume)on 01-13-2022 Angiotensin converting enzyme [Catalytic activity/Vol] 24 U/L 14-82 [facility] Work Phone: [phone] Serum or plasma cholesterol in HDL measurement (mass/volume)on 01-13-2022 Cholesterol in HDL [Mass/Vol] 42 mg/dL >40 [facility] Work Phone: [phone] Comment on above: The drugs N-Acetylcy steine and Metamizole may falsely depress this assay. Reference Range HDL <40 mg/dL Low HDL Cholesterol HDL >or= 60 mg/dL High HDL Cholesterol Serum or plasma cholesterol in VLDL measurement (mass/volume)on 01-13-2022 Cholesterol in VLDL [Mass/Vol] 35 mg/dL 5-40 [facility] Work Phone: [phone] Serum or plasma ferritin adriana surement (mass/volume)on 01-13-2022 Ferritin [Mass/Vol] 19 ng/mL 8-252 [facility] Work Phone: [phone] Serum or plasma hepatitis B virus surface antigen detection by immunoassayon 01-13-2022 HBV surface Ag IA Ql Negative Negative [facility] Work Phone: [phone] Serum or plasma low density lipoprotein (LDL) cholesterol measurement (mass/volume)on 01-13-2022 Cholesterol in LDL [Mass/Vol] 143 mg/dL 0-130 [facility] Work Phone: [phone] Serum perinuclear neutrophil cytoplasmic antibody titer by immunofluorescenceon 01-13-2022 Neutrophil cytoplasmic Ab.perinuclear IF (S) [Titer] <1:20 titer Neg:<1:20 [facility] Work Phone: [phone] Comment on above: The presence of posi tive fluorescence exhibiting P-ANCA orC-ANCA patterns alone is not specific for the diagnosis ofWegener's Granulomatosis (WG) or microscopic polyangiitis.Decisions about treatment should not be based solely onANCA IFA results. The International ANCA Group Consensusrecommends follow up testing of positive sera with both ID-3 and MPO-ANCA enzyme immunoassays. As many as 5% serumsamples are positive only by EIA. Ref. AM J Clin [id number];111:507-513. Thin prep Papanicolaou smear with manual screeningon 01-13-2022 Thin prep Papanicolaou smear with manual screening 164 U/L 84-246 [facility] Work Phone: Thin prep Papanicolaou smear with manual screening 109 ug/dL 80-158 [facility] Work Phone: Comment on above: Detection Limit = 5 Whole blood hemoglobin A1c/t otal hemoglobin ratio (mass fraction)on 01-13-2022 HbA1c (Bld) [Mass fraction] 5.4 % 3.8-5.6 [facility] Work Phone: Comment on above: Normal < 5.7 % Predi abetic 5.7 - 6.4 % Diabetic >or= 6.5 % Please note range changes. No Panel Informationon 01-03 Stool Neutral Fats Normal . [facility] Work Phone: Comment on above: Normal (<60 Droplets /HPF) Stool Pancreatic Elastase > 500 >200 [facility] Work Phone: Comment on above: Result Units: ug Pooja st./g Severe Pancreatic Insufficiency: <100 Moderate Pancreatic Insufficiency: 100 - 200 Normal: >200Performed at: [facility] [id number] Director: Emily Bacon MD, Phone: [phone] Qualitative fecal fat or lip idson 01-03-2022 Fat Ql (Stl) Normal . [facility] Work Phone: Comment on above: Normal (<100 Droplet s/HPF)Performed at: [employer] [address] [id number] Director: Viraj Sandoval PhD, Phone: [phone] Absolute lymphocyte counton 12-23-2021 Lymphocytes Auto (Unsp spec) [#/Vol] 2.19 10*3/uL 0.83-4.51 [facility] Work Phone: Basophil percentageon 2021 Basophils/100 WBC (Bld) 0.5 % 0-1 [facility] Work Phone: Bilirubin [Mass/Vol] 0.30 mg/dL 0.20-1.00 [facility] Work Phone: Comment on above: For patients on eltr ombopag therapy, use of Dimension [place] [place]. Chloride [Moles/Vol] 106 mmol/L 98-107 [facility] Work Phone: Eosinophils/100 WBC (Bld) 4.8 % 0-5 [facility] Work Phone: Glucose [Mass/Vol] 111 mg/dL 74-106 [facility] Work Phone: Comment on above: Fasting Glucose resu lt from 100 to 125 mg/dL suggests IMPAIRED HOMEOSTASIS per A.D.A. criteria. Neutrophils (Bld) [#/Vol] 3.0 10*3/uL 2.0-7.7 [facility] Work Phone: Neutrophils/100 WBC (Bld) 49.1 % 47-70 [facility] Work Phone: Potassium [Moles/Vol] 3.5 mmol/L 3.5-5.1 [facility] Work Phone: Protein [Mass/Vol] 7.5 g/dL 6.4-8.2 [facility] Work Phone: Sodium [Moles/Vol] 138 mmol/L 136-145 [facility] Work Phone: WBC (Bld) [#/Vol] 6.1 10*3/uL 4.4-11.0 [facility] Work Phone: Basophil percentage 0-5 SEEN /hpf 0-5 [facility] Work Phone: Beta hCG serum qualon 2021 Beta HCG ( test) Ql Negative [facility] Work Phone: Bilirubin Test strip Ql (U)o n 12-23-2021 Bilirubin Ql (U) Negative Negative [facility] Work Phone: Blood erythrocytes count (nu mber/volume)on 12-23-2021 RBC (Bld) [#/Vol] 4.87 10*6/uL 4.2-5.4 [facility] Work Phone: Blood hemoglobin measurement (mass/volume)on 12-23-2021 Hemoglobin (Bld) [Mass/Vol] 13.7 g/dL 12.0-15.0 [facility] Work Phone: Blood lymphocytes/100 leukoc yteson 12-23-2021 Lymphocytes/100 WBC (Bld) 36.1 % 19-41 [facility] Work Phone: Blood monocytes/100 leukocyt eson 12-23-2021 Monocytes/100 WBC (Bld) 9.2 % 0-10 [facility] Work Phone: Blood platelet mean volumeon 12-23-2021 Platelet mean volume (Bld) [Entitic vol] 11.1 fL 6.2-12.0 [facility] Work Phone: Determination of erythrocyte mean corpuscular volume (MCV)on 12-23-2021 MCV (RBC) [Entitic vol] 87.5 fL 81-99 [facility] Work Phone: Hematocrit Auto (Bld) [Volum e fraction]on 12-23-2021 Hematocrit (Bld) [Volume fraction] 42.6 % 37-47 [facility] Work Phone: Ketones Test strip Ql (U)on 12-23-2021 Ketones Ql (U) Negative Negative [facility] Work Phone: Laboratory - Chemistry and C hemistry - challengeon 12-23-2021 ALP [Catalytic activity/Vol] 54 U/L 45-117 [facility] Work Phone: ALT [Catalytic activity/Vol] 19 U/L 13-56 [facility] Work Phone: [phone] CO2 [Moles/Vol] 27.0 mmol/L 21.0-32.0 [facility] Work Phone: [phone] Globulin (S) [Mass/Vol] 3.6 g/dL 2.2-4.2 [facility] Work Phone: [phone] Lipase [Catalytic activity/Vol] 98 U/L 73-393 [facility] Work Phone: [phone] Urea nitrogen/Creatinine [Mass ratio] 11.9 mg/mg 10-20 [facility] Work Phone: [phone] Laboratory - Hematology and Cell countson 12-23-2021 Erythrocyte distribution width (RBC) [Entitic vol] 42.2 fL 35.1-43.9 [facility] Work Phone: [phone] Erythrocyte distribution width (RBC) [Ratio] 13.3 % 11.6-14.6 [facility] Work Phone: [phone] Immature granulocytes/100 WBC (Bld) 0.300 % 0.0-0.9 [facility] Work Phone: [phone] Comment on above: IG% - Immature Granu locytes (promyelocytes, myelocytes and metamyelocytes) > 1% indicates that a LEFT SHIFT is Present. MCH (RBC) [Entitic mass] 28.1 pg 27.0-32.0 [facility] Work Phone: [phone] Nucleated RBC/100 WBC (Bld) [Ratio] 0 % 0-5 [facility] Work Phone: [phone] MCHC Auto (RBC) [Mass/Vol]on 12-23-2021 MCHC (RBC) [Mass/Vol] 32.2 g/dL 32-36 [facility] Work Phone: [phone] Mucus LM Ql (Urine sed)on Mucus Ql (Urine sed) 0 SEEN /hpf [facility] Work Phone: [phone] Nitrite Test strip Ql (U)on 12-23-2021 Nitrite Ql (U) Negative Negative [facility] Work Phone: No Panel Informationon 12-23 Estimated Creatinine Clearance Calc 88.34 ml/min [facility] Work Phone: [phone] Estimated GFR (MDRD) Amer 100 mL/min >60 [facility] Work Phone: Comment on above: GFR Calc Estimated GFR (MDRD) Non-Af Amer 83 mL/min >60 [facility] Work Phone: [phone] Comment on above: Non- GFR Calc Platelets bldon 12-23-2021 Platelets (Bld) [#/Vol] 184 10*3/uL 150-450 [facility] Work Phone: [phone] Protein Test strip Ql (U)on 12-23-2021 Protein Ql (U) Negative Negative [facility] Work Phone: Serum or plasma albumin mg urement (mass/volume)on 12-23-2021 Albumin [Mass/Vol] 3.9 g/dL 3.2-5.0 [facility] Work Phone: Serum or plasma albumin/glob ulin mass ratioon 12-23-2021 Albumin/Globulin [Mass ratio] 1.1 {ratio} 0.9-2.4 [facility] Work Phone: [phone] Serum or plasma calcium mg urement (mass/volume)on 12-23-2021 Calcium [Mass/Vol] 9.2 mg/dL 8.5-10.1 [facility] Work Phone: [phone] Serum or plasma creatinine m easurement (mass/volume)on 12-23-2021 Creatinine [Mass/Vol] 0.84 mg/dL 0.55-1.02 [facility] Work Phone: Comment on above: The validity of the calculated GFR & GFRAA in patients over 70 years has not been determined. Clinical correlation is essential. Serum or plasma urea nitroge n measurement (mass/volume)on 12-23-2021 Urea nitrogen [Mass/Vol] 10 mg/dL 7-18 [facility] Work Phone: Squamous epithelial cells de tection in urine sediment by light microscopyon 12-23-2021 Epithelial cells.squamous LM Ql (Urine sed) 0-5 SEEN /hpf 5-10 [facility] Work Phone: Thin prep Papanicolaou smear with manual screeningon 12-23-2021 Thin prep Papanicolaou smear with manual screening 11 U/L 15-37 [facility] Work Phone: [phone] Thin prep Papanicolaou smear with manual screening 5 5-15 [facility] Work Phone: Urine blood detectionon 08-0 RBC Ql (U) Negative Negative [facility] Work Phone: [phone] RBC Ql (U) 0-5 SEEN /hpf 0-5 [facility] Work Phone: Urine clarityon 12-23-2021 Clarity (U) Clear Clear [facility] Work Phone: Urine color determinationon 12-23-2021 Color (U) Yellow Yellow [facility] Work Phone: Urine glucose detectionon Glucose Ql (U) Normal mg/dl Normal [facility] Work Phone: [phone] Urine leukocyte esterase det ection by dipstickon 12-23-2021 Leukocyte esterase Test strip Ql (U) Negative Negative [facility] Work Phone: Urine pHon 12-23-2021 pH (U) 6.0 [pH] 5.0 - 8.0 [facility] Work Phone: [phone] Urine sediment bacteria coun t by microscopy (number/high power field)on 12-23-2021 Bacteria LM.HPF (Urine sed) [#/Area] 1 /[HPF] None Seen [facility] Work Phone: Urine specific gravity measu rementon 12-23-2021 Specific gravity (U) [Rel density] 1.020 1.002-1.030 [facility] Work Phone: Urobilinogen Auto test strip Ql (U)on 12-23-2021 Urobilinogen Ql (U) Normal mg/dl Normal [facility] Work Phone: Absolute lymphocyte counton 11-27-2021 Lymphocytes Auto (Unsp spec) [#/Vol] 1.49 10*3/uL 0.83-4.51 [facility] Work Phone: Basophil percentageon 2021 Basophils/100 WBC (Bld) 0.3 % 0-1 [facility] Work Phone: Chloride [Moles/Vol] 105 mmol/L 98-107 [facility] Work Phone: Eosinophils/100 WBC (Bld) 2.8 % 0-5 [facility] Work Phone: Glucose [Mass/Vol] 120 mg/dL 74-106 [facility] Work Phone: Comment on above: Fasting Glucose resu lt from 100 to 125 mg/dL suggests IMPAIRED HOMEOSTASIS per A.D.A. criteria. Neutrophils (Bld) [#/Vol] 3.5 10*3/uL 2.0-7.7 [facility] Work Phone: Neutrophils/100 WBC (Bld) 60.9 % 47-70 [facility] Work Phone: Potassium [Moles/Vol] 4.4 mmol/L 3.5-5.1 [facility] Work Phone: Comment on above: Moderate Hemolysis, Result may be falsely increased. Sodium [Moles/Vol] 138 mmol/L 136-145 [facility] Work Phone: WBC (Bld) [#/Vol] 5.8 10*3/uL 4.4-11.0 [facility] Work Phone: Blood erythrocytes count (nu mber/volume)on 11-27-2021 RBC (Bld) [#/Vol] 4.59 10*6/uL 4.2-5.4 [facility] Work Phone: Blood hemoglobin measurement (mass/volume)on 11-27-2021 Hemoglobin (Bld) [Mass/Vol] 12.8 g/dL 12.0-15.0 [facility] Work Phone: Blood lymphocytes/100 leukoc yteson 11-27-2021 Lymphocytes/100 WBC (Bld) 25.8 % 19-41 [facility] Work Phone: Blood monocytes/100 leukocyt eson 11-27-2021 Monocytes/100 WBC (Bld) 9.9 % 0-10 [facility] Work Phone: Blood platelet mean volumeon 11-27-2021 Platelet mean volume (Bld) [Entitic vol] 11.4 fL 6.2-12.0 [facility] Work Phone: Determination of erythrocyte mean corpuscular volume (MCV)on 11-27-2021 MCV (RBC) [Entitic vol] 86.9 fL 81-99 [facility] Work Phone: Hematocrit Auto (Bld) [Volum e fraction]on 11-27-2021 Hematocrit (Bld) [Volume fraction] 39.9 % 37-47 [facility] Work Phone: Laboratory - Chemistry and C hemistry - challengeon 11-27-2021 CO2 [Moles/Vol] 30.0 mmol/L 21.0-32.0 [facility] Work Phone: Magnesium [Mass/Vol] 1.9 mg/dL 1.6-2.6 [facility] Work Phone: [phone] Comment on above: Moderate Hemolysis, Result may be falsely increased. Urea nitrogen/Creatinine [Mass ratio] 9.8 mg/mg 10-20 [facility] Work Phone: Laboratory - Hematology and Cell countson 11-27-2021 Erythrocyte distribution width (RBC) [Entitic vol] 41.5 fL 35.1-43.9 [facility] Work Phone: Erythrocyte distribution width (RBC) [Ratio] 13.2 % 11.6-14.6 [facility] Work Phone: Immature granulocytes/100 WBC (Bld) 0.300 % 0.0-0.9 [facility] Work Phone: Comment on above: IG% - Immature Granu locytes (promyelocytes, myelocytes and metamyelocytes) > 1% indicates that a LEFT SHIFT is Present. MCH (RBC) [Entitic mass] 27.9 pg 27.0-32.0 [facility] Work Phone: Nucleated RBC/100 WBC (Bld) [Ratio] 0 % 0-5 [facility] Work Phone: MCHC Auto (RBC) [Mass/Vol]on 11-27-2021 MCHC (RBC) [Mass/Vol] 32.1 g/dL 32-36 [facility] Work Phone: No Panel Informationon 11-27 Estimated Creatinine Clearance Calc 90.50 ml/min [facility] Work Phone: Estimated GFR (MDRD) Amer 102 mL/min >60 [facility] Work Phone: Comment on above: GFR Calc Estimated GFR (MDRD) Non-Af Amer 85 mL/min >60 [facility] Work Phone: Comment on above: Non- GFR Calc Thyroid Stimulating Hormone (TSH) 4.97 uIU/mL 0.358-3.74 [facility] Work Phone: Platelets bldon 11-27-2021 Platelets (Bld) [#/Vol] 168 10*3/uL 150-450 [facility] Work Phone: Serum or plasma calcium mg urement (mass/volume)on 11-27-2021 Calcium [Mass/Vol] 8.9 mg/dL 8.5-10.1 [facility] Work Phone: [phone] Serum or plasma creatinine m easurement (mass/volume)on 11-27-2021 Creatinine [Mass/Vol] 0.82 mg/dL 0.55-1.02 [facility] Work Phone: Comment on above: The validity of the calculated GFR & GFRAA in patients over 70 years has not been determined. Clinical correlation is essential. Serum or plasma urea nitroge n measurement (mass/volume)on 11-27-2021 Urea nitrogen [Mass/Vol] 8 mg/dL 7-18 [facility] Work Phone: Thin prep Papanicolaou smear with manual screeningon 11-27-2021 Thin prep Papanicolaou smear with manual screening 3 5-15 [facility] Work Phone: Absolute lymphocyte counton 08-20-2021 Lymphocytes Auto (Unsp spec) [#/Vol] 1.34 10*3/uL 0.83-4.51 [facility] Work Phone: Basophil percentageon 2021 Basophil percentage 0 SEEN /hpf 0-5 [facility] Work Phone: Basophils/100 WBC (Bld) 0.8 % 0-1 [facility] Work Phone: Bilirubin [Mass/Vol] 0.30 mg/dL 0.20-1.00 [facility] Work Phone: Comment on above: For patients on eltr ombopag therapy, use of Dimension [place] TBIL is not recommended. Chloride [Moles/Vol] 107 mmol/L 98-107 [facility] Work Phone: Eosinophils/100 WBC (Bld) 2.8 % 0-5 [facility] Work Phone: Glucose [Mass/Vol] 87 mg/dL 74-106 [facility] Work Phone: Neutrophils (Bld) [#/Vol] 3.0 10*3/uL 2.0-7.7 [facility] Work Phone: Neutrophils/100 WBC (Bld) 59.5 % 47-70 [facility] Work Phone: Potassium [Moles/Vol] 3.8 mmol/L 3.5-5.1 [facility] Work Phone: Protein [Mass/Vol] 7.9 g/dL 6.4-8.2 [facility] Work Phone: Sodium [Moles/Vol] 137 mmol/L 136-145 [facility] Work Phone: [phone] WBC (Bld) [#/Vol] 5.0 10*3/uL 4.4-11.0 [facility] Work Phone: Beta hCG serum qualon 2021 Beta HCG ( test) Ql Negative [facility] Work Phone: [phone] Bilirubin Test strip Ql (U)o n 08-20-2021 Bilirubin Ql (U) Negative Negative [facility] Work Phone: [phone] Blood erythrocytes count (nu mber/volume)on 08-20-2021 RBC (Bld) [#/Vol] 5.32 10*6/uL 4.2-5.4 [facility] Work Phone: Blood hemoglobin measurement (mass/volume)on 08-20-2021 Hemoglobin (Bld) [Mass/Vol] 14.6 g/dL 12.0-15.0 [facility] Work Phone: Blood lymphocytes/100 leukoc yteson 08-20-2021 Lymphocytes/100 WBC (Bld) 27.0 % 19-41 [facility] Work Phone: [phone] Blood monocytes/100 leukocyt eson 08-20-2021 Monocytes/100 WBC (Bld) 9.7 % 0-10 [facility] Work Phone: [phone] Blood platelet mean volumeon 08-20-2021 Platelet mean volume (Bld) [Entitic vol] 11.4 fL 6.2-12.0 [facility] Work Phone: Determination of erythrocyte mean corpuscular volume (MCV)on 08-20-2021 MCV (RBC) [Entitic vol] 84.2 fL 81-99 [facility] Work Phone: Hematocrit Auto (Bld) [Volum e fraction]on 08-20-2021 Hematocrit (Bld) [Volume fraction] 44.8 % 37-47 [facility] Work Phone: Ketones Test strip Ql (U)on 08-20-2021 Ketones Ql (U) Negative Negative [facility] Work Phone: [phone] Laboratory - Chemistry and C hemistry - challengeon 08-20-2021 ALP [Catalytic activity/Vol] 65 U/L 45-117 [facility] Work Phone: [phone] ALT [Catalytic activity/Vol] 30 U/L 13-56 [facility] Work Phone: [phone] CO2 [Moles/Vol] 26.0 mmol/L 21.0-32.0 [facility] Work Phone: [phone] Globulin (S) [Mass/Vol] 3.8 g/dL 2.2-4.2 [facility] Work Phone: [phone] Lipase [Catalytic activity/Vol] 119 U/L 73-393 [facility] Work Phone: [phone] Urea nitrogen/Creatinine [Mass ratio] 7.6 mg/mg 10-20 [facility] Work Phone: [phone] Laboratory - Hematology and Cell countson 08-20-2021 Erythrocyte distribution width (RBC) [Entitic vol] 41.4 fL 35.1-43.9 [facility] Work Phone: [phone] Erythrocyte distribution width (RBC) [Ratio] 13.5 % 11.6-14.6 [facility] Work Phone: [phone] Immature granulocytes/100 WBC (Bld) 0.200 % 0.0-0.9 [facility] Work Phone: [phone] Comment on above: IG% - Immature Granu locytes (promyelocytes, myelocytes and metamyelocytes) > 1% indicates that a LEFT SHIFT is Present. MCH (RBC) [Entitic mass] 27.4 pg 27.0-32.0 [facility] Work Phone: [phone] Nucleated RBC/100 WBC (Bld) [Ratio] 0 % 0-5 [facility] Work Phone: [phone] MCHC Auto (RBC) [Mass/Vol]on 08-20-2021 MCHC (RBC) [Mass/Vol] 32.6 g/dL 32-36 [facility] Work Phone: Mucus LM Ql (Urine sed)on Mucus Ql (Urine sed) 0 SEEN /hpf [facility] Work Phone: Nitrite Test strip Ql (U)on 08-20-2021 Nitrite Ql (U) Negative Negative [facility] Work Phone: No Panel Informationon 08-20 Estimated Creatinine Clearance Calc 93.93 ml/min [facility] Work Phone: Estimated GFR (MDRD) Amer 106 mL/min >60 [facility] Work Phone: Comment on above: GFR Calc Estimated GFR (MDRD) Non-Af Amer 88 mL/min >60 [facility] Work Phone: Comment on above: Non- GFR Calc Platelets bldon 08-20-2021 Platelets (Bld) [#/Vol] 183 10*3/uL 150-450 [facility] Work Phone: Protein Test strip Ql (U)on 08-20-2021 Protein Ql (U) Negative Negative [facility] Work Phone: [phone] Serum or plasma albumin mg urement (mass/volume)on 08-20-2021 Albumin [Mass/Vol] 4.1 g/dL 3.2-5.0 [facility] Work Phone: Serum or plasma albumin/glob ulin mass ratioon 08-20-2021 Albumin/Globulin [Mass ratio] 1.1 {ratio} 0.9-2.4 [facility] Work Phone: [phone] Serum or plasma calcium mg urement (mass/volume)on 08-20-2021 Calcium [Mass/Vol] 9.2 mg/dL 8.5-10.1 [facility] Work Phone: [phone] Serum or plasma creatinine m easurement (mass/volume)on 08-20-2021 Creatinine [Mass/Vol] 0.79 mg/dL 0.55-1.02 [facility] Work Phone: Comment on above: The validity of the calculated GFR & GFRAA in patients over 70 years has not been determined. Clinical correlation is essential. Serum or plasma urea nitroge n measurement (mass/volume)on 08-20-2021 Urea nitrogen [Mass/Vol] 6 mg/dL 7-18 [facility] Work Phone: Squamous epithelial cells de tection in urine sediment by light microscopyon 08-20-2021 Epithelial cells.squamous LM Ql (Urine sed) 5-10 SEEN /hpf 5-10 [facility] Work Phone: Thin prep Papanicolaou smear with manual screeningon 08-20-2021 Thin prep Papanicolaou smear with manual screening 14 U/L 15-37 [facility] Work Phone: [phone] Thin prep Papanicolaou smear with manual screening 4 5-15 [facility] Work Phone: Urine blood detectionon 04-0 RBC Ql (U) Negative Negative [facility] Work Phone: RBC Ql (U) 0 SEEN /hpf 0-5 [facility] Work Phone: Urine clarityon 08-20-2021 Clarity (U) Clear Clear [facility] Work Phone: Urine color determinationon 08-20-2021 Color (U) Yellow Yellow [facility] Work Phone: Urine glucose detectionon Glucose Ql (U) Normal mg/dl Normal [facility] Work Phone: [phone] Urine leukocyte esterase det ection by dipstickon 08-20-2021 Leukocyte esterase Test strip Ql (U) Negative Negative [facility] Work Phone: [phone] Urine pHon 08-20-2021 pH (U) 6.0 [pH] 5.0 - 8.0 [facility] Work Phone: [phone] Urine sediment bacteria coun t by microscopy (number/high power field)on 08-20-2021 Bacteria LM.HPF (Urine sed) [#/Area] 0 /[HPF] None Seen [facility] Work Phone: Urine specific gravity measu rementon 08-20-2021 Specific gravity (U) [Rel density] 1.015 1.002-1.030 [facility] Work Phone: Urobilinogen Auto test strip Ql (U)on 08-20-2021 Urobilinogen Ql (U) Normal mg/dl Normal [facility] Work Phone: No Panel Informationon 08-11 Thyroid Stimulating Hormone (TSH) 2.44 uIU/mL 0.358-3.74 [facility] Work Phone: Absolute lymphocyte counton 06-08-2021 Lymphocytes Auto (Unsp spec) [#/Vol] 1.22 10*3/uL 0.83-4.51 [facility] Work Phone: Basophil percentageon 2021 Basophils/100 WBC (Bld) 0.6 % 0-1 [facility] Work Phone: Bilirubin [Mass/Vol] 0.40 mg/dL 0.20-1.00 [facility] Work Phone: Comment on above: For patients on eltr ombopag therapy, use of Dimension [place] TBIL is not recommended. Chloride [Moles/Vol] 103 mmol/L 98-107 [facility] Work Phone: Eosinophils/100 WBC (Bld) 3.3 % 0-5 [facility] Work Phone: Glucose [Mass/Vol] 102 mg/dL 74-106 [facility] Work Phone: Comment on above: Fasting Glucose resu lt from 100 to 125 mg/dL suggests IMPAIRED HOMEOSTASIS per A.D.A. criteria. Neutrophils (Bld) [#/Vol] 3.0 10*3/uL 2.0-7.7 [facility] Work Phone: Neutrophils/100 WBC (Bld) 62.1 % 47-70 [facility] Work Phone: Potassium [Moles/Vol] 3.9 mmol/L 3.5-5.1 [facility] Work Phone: [phone] Protein [Mass/Vol] 7.3 g/dL 6.4-8.2 [facility] Work Phone: [phone] Sodium [Moles/Vol] 139 mmol/L 136-145 [facility] Work Phone: [phone] WBC (Bld) [#/Vol] 4.9 10*3/uL 4.4-11.0 [facility] Work Phone: [phone] Blood erythrocytes count (nu mber/volume)on 06-08-2021 RBC (Bld) [#/Vol] 5.20 10*6/uL 4.2-5.4 [facility] Work Phone: [phone] Blood hemoglobin measurement (mass/volume)on 06-08-2021 Hemoglobin (Bld) [Mass/Vol] 14.3 g/dL 12.0-15.0 [facility] Work Phone: [phone] Blood lymphocytes/100 leukoc yteson 06-08-2021 Lymphocytes/100 WBC (Bld) 25.0 % 19-41 [facility] Work Phone: [phone] Blood monocytes/100 leukocyt eson 06-08-2021 Monocytes/100 WBC (Bld) 8.6 % 0-10 [facility] Work Phone: [phone] Blood platelet mean volumeon 06-08-2021 Platelet mean volume (Bld) [Entitic vol] 11.4 fL 6.2-12.0 [facility] Work Phone: [phone] Determination of erythrocyte mean corpuscular volume (MCV)on 06-08-2021 MCV (RBC) [Entitic vol] 84.0 fL 81-99 [facility] Work Phone: [phone] Hematocrit Auto (Bld) [Volum e fraction]on 06-08-2021 Hematocrit (Bld) [Volume fraction] 43.7 % 37-47 [facility] Work Phone: [phone] Laboratory - Chemistry and C hemistry - challengeon 06-08-2021 ALP [Catalytic activity/Vol] 65 U/L 45-117 [facility] Work Phone: [phone] ALT [Catalytic activity/Vol] 51 U/L 13-56 [facility] Work Phone: [phone] CO2 [Moles/Vol] 30.0 mmol/L 21.0-32.0 [facility] Work Phone: [phone] Globulin (S) [Mass/Vol] 3.7 g/dL 2.2-4.2 [facility] Work Phone: [phone] Urea nitrogen/Creatinine [Mass ratio] 12.5 mg/mg 10-20 [facility] Work Phone: [phone] Laboratory - Hematology and Cell countson 06-08-2021 Erythrocyte distribution width (RBC) [Entitic vol] 40.0 fL 35.1-43.9 [facility] Work Phone: [phone] Erythrocyte distribution width (RBC) [Ratio] 13.0 % 11.6-14.6 [facility] Work Phone: [phone] Immature granulocytes/100 WBC (Bld) 0.400 % 0.0-0.9 [facility] Work Phone: [phone] Comment on above: IG% - Immature Granu locytes (promyelocytes, myelocytes and metamyelocytes) > 1% indicates that a LEFT SHIFT is Present. MCH (RBC) [Entitic mass] 27.5 pg 27.0-32.0 [facility] Work Phone: [phone] Nucleated RBC/100 WBC (Bld) [Ratio] 0 % 0-5 [facility] Work Phone: [phone] MCHC Auto (RBC) [Mass/Vol]on 06-08-2021 MCHC (RBC) [Mass/Vol] 32.7 g/dL 32-36 [facility] Work Phone: [phone] No Panel Informationon 06-08 Thyroid Stimulating Hormone (TSH) 0.30 uIU/mL 0.358-3.74 [facility] Work Phone: [phone] Estimated GFR (MDRD) Amer 119 mL/min >60 [facility] Work Phone: Comment on above: GFR Calc Estimated GFR (MDRD) Non-Af Amer 99 mL/min >60 [facility] Work Phone: Comment on above: Non- GFR Calc Vitamin D 25-Hydroxy 16.2 ng/mL [facility] Work Phone: Comment on above: Vitamin D 25(OH) Sta tus Range Deficiency <20 ng/mL (50nmol/L) Insufficiency 20 - 30 ng/mL (50 - 75 nmol/L) Sufficiency 30 - 100 ng/mL (75 - 250 nmol/L) Toxicity >100 ng/mL (>250 nmol/L) Platelets bldon 06-08-2021 Platelets (Bld) [#/Vol] 178 10*3/uL 150-450 [facility] Work Phone: Serum or plasma albumin mg urement (mass/volume)on 06-08-2021 Albumin [Mass/Vol] 3.6 g/dL 3.2-5.0 [facility] Work Phone: Serum or plasma albumin/glob ulin mass ratioon 06-08-2021 Albumin/Globulin [Mass ratio] 1.0 {ratio} 0.9-2.4 [facility] Work Phone: Serum or plasma calcium mg urement (mass/volume)on 06-08-2021 Calcium [Mass/Vol] 8.7 mg/dL 8.5-10.1 [facility] Work Phone: Serum or plasma creatinine m easurement (mass/volume)on 06-08-2021 Creatinine [Mass/Vol] 0.72 mg/dL 0.55-1.02 [facility] Work Phone: Comment on above: The validity of the calculated GFR & GFRAA in patients over 70 years has not been determined. Clinical correlation is essential. Serum or plasma urea nitroge n measurement (mass/volume)on 06-08-2021 Urea nitrogen [Mass/Vol] 9 mg/dL -18 [facility] Work Phone: Thin prep Papanicolaou smear with manual screeningon 06-08-2021 Thin prep Papanicolaou smear with manual screening 25 U/L 15-37 [facility] Work Phone: Thin prep Papanicolaou smear with manual screening 6 5-15 [facility] Work Phone: SARS coronavirus RNA [Presen ce] in Unspecified specimen by JONE with probe detectionon 05-24-2021 SARS-CoV RNA JONE+probe Ql (Unsp spec) Not detected Not Detected [facility] Work Phone: Comment on above: This nucleic [...] of in vitro diagnostic tests for detection [id number] virus and/or diagnosis of COVID-19 infectionunder section [...] 12-31-2020 IMPRESSION: No acute osseous abnormality identified. Manager Unit: [facility] Transcribe Date/Time: Dec 31 2020 1:18P Dictated by : ADE MELÉNDEZ MD This examination was interpreted and the report reviewed and electronically signed by: ADE MELÉNDEZ MD on Dec 31 2020 1:20PM [facility] DIVISION OF RADIOLOGY * * *Final Report* [...] tissue abnormality identified. DIVISION OF RADIOLOGY Provider, [facility] - 12/31/2020 * * *Final [...] IMPRESSION IMPRESSION: No acute osseous abnormality identified. Manager [facility] Transcribe Date/Time: Dec 31 2020 1:18P Dictated by : ADE MELÉNDEZ MD This examination was interpreted and the report reviewed and electronically signed by: ADE MELÉNDEZ MD on Dec 31 2020 1:20PM EST [facility] Radiology Study [facility] (narrative) [facility] Shoulder - left 3 ViewsOr dered By: Cc Provider on 12-31-2020 [facility] XR Chest PA and Lateralon IMPRESSION: No acute radiographic abnormality. Manager Unit: [facility] Transcribe Date/Time: Jun 25 2020 3:58P Dictated by : JOSHUA CLARK MD This examination was interpreted and the report reviewed and electronically signed by: JOSHUA CLARK MD on Jun 25 2020 3:59PM EST DIVISION OF RADIOLOGY * * *Final Report* [...] soft tissues: Unremarkable. DIVISION OF RADIOLOGY Provider, [facility] - 06/25/2020 * * *Final Report* [...] Unremarkable. IMPRESSION IMPRESSION: No acute radiographic abnormality. Manager Unit: [facility] Transcribe Date/Time: Jun 25 2020 3:58P Dictated by : JOSHUA CLARK MD This examination was interpreted and the report reviewed and electronically signed by: JOSHUA CLARK MD on Jun 25 2020 3:59PM [facility] Radiology Study observation (narrative) [facility] XR Chest PA and LateralOrder ed By: Cc Provider on 06-25-2020 [facility] Office Visit: OB Routineon 1 06-19-2016 Documentation of current medications (procedure) Done Invalid Interpretation Code [facility] Urine, glucose presence N Invalid Interpretation Code [facility] Urine, protein N Invalid Interpretation Code [facility] Office Visit: OB Routineon 1 06-10-2016 Documentation of current medications (procedure) Done Invalid Interpretation Code [facility] Urine, glucose presence N Invalid Interpretation Code [facility] Urine, protein N Invalid Interpretation Code [facility] Office Visit: OB Routineon 1 Albumin Ql (U) N Invalid Interpretation Code [facility] Documentation of current medications (procedure) Done Invalid Interpretation Code [facility] Glucose Test strip mass conc (U) N Invalid Interpretation Code [facility] Protein mass conc Done Invalid Interpretation Code [facility] Tobacco smoking status NHIS Never Invalid Interpretation Code [facility] Tobacco smoking status NHIS Tobacco smoking status NHIS Invalid Interpretation Code [facility] Tobacco smoking status NHIS Current every day smoker Invalid Interpretation Code [facility] Tobacco use [facility] Current every day smoker Invalid Interpretation Code [facility] Urine, glucose presence N Invalid Interpretation Code [facility] Urine, protein N Invalid Interpretation Code [facility] 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 Interface Message Text Patient rescheduled due to illness Normal [facility] Office Visit: OB Routineon 0 02-17-2017 Albumin Ql (U) N Invalid Interpretation Code [facility] Documentation of current medications (procedure) Done Invalid Interpretation Code [facility] Glucose Test strip mass conc (U) N Invalid Interpretation Code [facility] Protein mass conc Done Invalid Interpretation Code [facility] Urine, glucose presence N Invalid Interpretation Code [facility] Urine, protein N Invalid Interpretation Code [facility] Lab Report: HIV Screen 4TH G EN W/Confirmon 02-10-2017 GE use only - for LinkLogic import when terms are not otherwise specified . Invalid Interpretation Code Non Reactive [facility] Lab Report: Hepatitis B Surf dakotah Agon 02-10-2017 BSA (Body Surface Area) . Invalid Interpretation Code Negative [facility] Lab Report: Rapid Plasmin Re agin (RPR)on 02-10-2017 Reagin antibody presence . Invalid Interpretation Code NONREACTIVE [facility] Lab Report: Rubella IgGon rubella virus antibody, IgG 192.8 [iU]/mL Invalid Interpretation Code [facility] Replaced Document: HIV Scree n 4TH GEN W/Confirmon 02-10-2017 HIV1/0/2 SCREEN . Invalid Interpretation Code Non Reactive [facility] Replaced Document: Hepatitis B Surface Agon 02-10-2017 HBV surface Ag Ql (S) . Invalid Interpretation Code Negative [facility] Replaced Document: Rapid Jeremy smin Reagin (RPR)on 02-10-2017 Reagin Ab VDRL Qn (S) . Invalid Interpretation Code NONREACTIVE [facility] Replaced Document: Rubella I gGon 02-10-2017 Rubella IgG 192.8 [iU]/mL Invalid Interpretation Code [facility] Lab Report: CBC W/Diff, Auto matedon 02-09-2017 Basophils/100 WBC Auto (Bld) 0.2 % Invalid Interpretation Code 0-1 [facility] Eosinophils/100 leukocytes 3.2 % Invalid Interpretation Code 0-5 [facility] Erythrocyte distribution width Auto Ratio (RBC) 13.6 % Invalid Interpretation Code 11.6-14.6 [facility] Erythrocytes (RBC) 4.64 10*6/uL Invalid Interpretation Code 4.2-5.4 [facility] Hematocrit (HCT) 40.0 % Invalid Interpretation Code 37-47 [facility] Hemoglobin mass conc (Bld) 13.0 g/dL Invalid Interpretation Code 12.0-15.0 [facility] immature granulocytes, percentage of total cells, blood 0.200 % Invalid Interpretation Code 0.0-0.9 [facility] Lymphocytes 1.29 X10 3/UL Invalid Interpretation Code 0.83-4.51 [facility] Lymphocytes/100 leukocytes 25.7 % Invalid Interpretation Code 19-41 [facility] MCH 28.0 pg Invalid Interpretation Code 27.0-32.0 [facility] MCHC mass conc (RBC) 32.5 G/GL Invalid Interpretation Code 32-36 [facility] MCV 86.2 fL Invalid Interpretation Code 81-99 [facility] Monocytes/100 leukocytes 5.8 % Invalid Interpretation Code 0-10 [facility] neutrophil count, blood 3.3 X10 3/UL Invalid Interpretation Code 2.0-7.7 [facility] Neutrophils/100 WBC Auto (Bld) 64.9 % Invalid Interpretation Code 47-70 [facility] Platelets 171 10*3/mm3 Invalid Interpretation Code 150-450 [facility] PMV by Cordell 11.0 fL Invalid Interpretation Code 6.2-12.0 [facility] red blood cell distribution width, size density 42.8 fL Invalid Interpretation Code 35.1-43.9 [facility] WBC (Leukocytes) 5.0 10*3/uL Invalid Interpretation Code 4.4-11.0 [facility] Lab Report: Hemoglobin A1con 02-09-2017 Hemoglobin A1c/Hemoglobin.total mass fraction (Bld) 5.5 % Invalid Interpretation Code 4.2-6.3 [facility] Lab Report: T4 Total, Thyrox inon 02-09-2017 Thyroxine (T4) 11.4 ug/dL Invalid Interpretation Code 4.8-13.9 [facility] Lab Report: Thyroid Stim Hor kendrick (TSH)on 02-09-2017 Thyroid stimulating hormone (TSH) 6.03 u[iU]/mL High 0.358-3.74 [facility] Office Visit: OB Routineon 0 02-09-2017 Documentation of current medications (procedure) Done Invalid Interpretation Code [facility] Replaced Document: CBC W/Dif f, Automatedon 02-09-2017 Absolute Neut 3.3 X10 3/UL Invalid Interpretation Code 2.0-7.7 [facility] Basophils/100 WBC (Bld) 0.2 % 0-1 B [facility] Eosinophils/100 WBC (Bld) 3.2 % 0-5 [facility] Erythrocyte distribution width Auto Ratio (RBC) 42.8 fL Invalid Interpretation Code 35.1-43.9 [facility] Work Phone: Erythrocyte distribution width Ratio (RBC) 42.8 fL 35.1-43.9 [facility] Erythrocyte distribution width Ratio (RBC) 13.6 % 11.6-14.6 [facility] Hematocrit Volume Fraction (Bld) 40.0 % 37-47 [facility] Immature granulocytes #/vol (Bld) 0.200 % Invalid Interpretation Code 0.0-0.9 [facility] Immature granulocytes/100 WBC (Bld) 0.200 % Invalid Interpretation Code 0.0-0.9 [facility] Lymphocytes #/vol (Bld) 1.29 X10 3/UL 0.83-4.51 [facility] Lymphocytes/100 WBC (Bld) 25.7 % 19-41 [facility] MCH Entitic mass (RBC) 28.0 pg 27.0-32.0 Bl [facility] MCHC mass conc (RBC) 32.5 G/GL 32-36 [facility] MCV Entitic volume (RBC) 86.2 fL 81-99 [facility] Monocytes/100 WBC (Bld) 5.8 % 0-10 B [facility] Neutrophils #/vol (Bld) 3.3 X10 3/UL 2.0-7.7 [facility] Neutrophils Auto #/vol (Bld) 3.3 X10 3/UL Invalid Interpretation Code 2.0-7.7 [facility] Work Phone: Neutrophils/100 WBC (Bld) 64.9 % 47-70 [facility] Platelet mean volume Entitic volume (Bld) 11.0 fL 6.2-12.0 [facility] Platelets #/vol (Bld) 171 10*3/mm3 150-450 B [facility] RBC #/vol (Bld) 4.64 10*6/uL 4.2-5.4 [facility] RDW SD 42.8 fL Invalid Interpretation Code 35.1-43.9 [facility] WBC #/vol (Bld) 5.0 10*3/uL 4.4-11.0 [facility] Microbiology: Noe Santiago Comprehensiveon 01-20-2017 CUV . Invalid Interpretation Code [facility] GE use only - for LinkLogic import when terms are not otherwise specified . Invalid Interpretation Code [facility] Microbiology: (P) Culture, G enital Comprehensiveon 01-19-2017 GE use only - for LinkLogic import when terms are not otherwise specified . Invalid Interpretation Code [facility] Microbiology: (P) Culture, G enital Comprehensiveon 01-18-2017 GE use only - for LinkLogic import when terms are not otherwise specified . Invalid Interpretation Code [facility] Office Visit: bloody vaginal dischargeon 01-17-2017 Documentation of current medications (procedure) Done Invalid Interpretation Code [facility] Fall risk assessment No Invalid Interpretation Code [facility] Protein mass conc Done [facility] Tobacco smoking status NHIS Never Invalid Interpretation Code [facility] Tobacco smoking status NEIS Current every day smoker Invalid Interpretation Code [facility] Tobacco use [facility] Current every day smoker Invalid Interpretation Code [facility] Microbiology: Culture, Urine on 01-11-2017 CUUR . [facility] Append: OB Initialon 017 crown rump length by ultrasound 6.1 mm Invalid Interpretation Code [facility] estimated date of confinement by sonogram 09/01/2017 Invalid Interpretation Code [facility] cardiac activity by sonography Yes Invalid Interpretation Code [facility] number by ultrasound 1 Invalid Interpretation Code [facility] gestational age by ultrasound 6W 3D Invalid Interpretation Code [facility] OB ultrasound, gestational sac Yes Invalid Interpretation Code [facility] Lab Report: CT/NG [facility] BY PCR on 01-09-2017 Chlamydia trachomatis DNA [Presence] in Urine by Probe and target amplification method Negative Invalid Interpretation Code Negative [facility] Neisseria gonorrhoeae presence Negative Invalid Interpretation Code Negative [facility] Office Visit: OB Initialon 0 01-09-2017 Fall risk [facility] Simplex Virus Genital no Invalid Interpretation Code [facility] Tobacco smoking status NHIS Never [facility] Tobacco smoking status NHIS Current every day smoker [facility] Tobacco use [facility] Current every day smoker Invalid Interpretation Code [facility] Office Visit: OB Initialon 0 12-21-2015 General categories [Interpretation] of Cervical or vaginal smear or scraping by Cyto stain ASCUS Invalid Interpretation Code [facility] Bacteria identified Anaer cx Nom (Unsp spec) Anaerobic Culture Prevotella bivia [facility] Work Phone: Anaerobic Culture Prevotella melaninogenica [facility] Work Phone: Anaerobic Culture Anaerobic cocci [facility] Work Phone: Bacteria identified Cx Nom ( Wound) Wound Culture Enterococcus faecalis [facility] Work Phone: Culture, urine Bacteria identified Cx Nom (U) Positive [facility] Work Phone: Bacteria identified Cx Nom (U) Mixed Gram Pos & Gram Neg Org [facility] Work Phone: Gram stain for investigation of transfusion reaction Microscopic observation Gram stain Nom (Unsp spec) [facility] Work Phone: Influenza virus A and B and SARS-CoV-2 (COVID-19) Ag panel - Upper respiratory specim SARS-CoV-2 (COVID-19) RNA JONE+probe Ql (Resp) [facility] Work Phone: Laboratory - Microbiology an d Antimicrobial susceptibility Bacteria identified Cx Nom (Bld) No growth in 5 days. [facility] Work Phone: No Panel Information SARS-CoV-2 & FLU Antigen (Rapid) [facility] Work Phone: Vital Signs Date Time Vital Sign Value Performing Clinician Lennox calles 06-21-2024 13:58-0500 Body temperature 98.91 [degF] Tomasz Ace Jr., DPM Work Phone: [facility] 06-21-2024 13:58-0500 Diastolic blood pressure 82 mm[Hg] Tomasz Ace Jr., DPM Work Phone: [facility] 06-21-2024 13:58-0500 Heart rate 90 /min Tomasz Ace Jr., DPM Work Phone: [facility] 06-21-2024 13:58-0500 Systolic blood pressure 128 mm[Hg] Tomasz Ace Jr., DPM Work Phone: [facility] 09-29-2023 15:14-0400 Body height 167.[address] Aleena London Work Phone: [facility] 09-29-2023 15:14-0400 Body mass index (BMI) [Ratio] 38.6 kg/m2 Dr. Aleena London Work Phone: [facility] 09-29-2023 15:14-0400 Body temperature 97 [degF] Dr. Aleena London Work Phone: [facility] 09-29-2023 15:14-0400 Body weight 108.[address] Aleena London Work Phone: [facility] 09-29-2023 15:14-0400 Diastolic blood pressure 90 mm[Hg] Dr. Aleena London Work Phone: [facility] 09-29-2023 15:14-0400 Heart rate 65 /min Dr. Aleena London Work Phone: [facility] 09-29-2023 15:14-0400 Respiratory rate 16 /min Dr. Aleena London Work Phone: [facility] 09-29-2023 15:14-0400 SaO2% (BldA) [Mass fraction] 100 % Dr. Aleena London Work Phone: [facility] 09-29-2023 15:14-0400 Systolic blood pressure 149 mm[Hg] Dr. Aleena London Work Phone: [facility] 09-14-2023 15:11-0400 Body mass index (BMI) [Ratio] 38.3 kg/m2 Dr. Aleena London Work Phone: [facility] 09-14-2023 15:11-0400 Body temperature 98.7 [degF] Dr. Aleena London Work Phone: [facility] 09-14-2023 15:11-0400 Body weight 107.[address] Aleena London Work Phone: [facility] 09-14-2023 15:11-0400 Diastolic blood pressure 82 mm[Hg] Dr. Aleena London Work Phone: [facility] 09-14-2023 15:11-0400 Heart rate 83 /min Dr. Aleena London Work Phone: [facility] 09-14-2023 15:11-0400 Respiratory rate 16 /min Dr. Aleena London Work Phone: [facility] 09-14-2023 15:11-0400 SaO2% (BldA) [Mass fraction] 98 % Dr. Aleena London Work Phone: [facility] 09-14-2023 15:11-0400 Systolic blood pressure 128 mm[Hg] Dr. Aleena London Work Phone: [facility] 09-14-2023 12:10-0400 Body temperature 98.4 [degF] Dr. Aleena London Work Phone: [facility] 09-14-2023 12:10-0400 Diastolic blood pressure 80 mm[Hg] Dr. Aleena London Work Phone: [facility] 09-14-2023 12:10-0400 Heart rate 95 /min Dr. Aleena London Work Phone: [facility] 09-14-2023 12:10-0400 Respiratory rate 12 /min Dr. Aleena London Work Phone: [facility] 09-14-2023 12:10-0400 SaO2% (BldA) [Mass fraction] 98 % Dr. Aleena London Work Phone: [facility] 09-14-2023 12:10-0400 Systolic blood pressure 126 mm[Hg] Dr. Aleena London Work Phone: [facility] 09-11-2023 14:47-0400 Body height 167.[address] Aleena London Work Phone: [facility] 09-11-2023 14:47-0400 Body mass index (BMI) [Ratio] 38.2 kg/m2 Dr. Aleena London Work Phone: [facility] 09-11-2023 14:47-0400 Body temperature 99.4 [degF] Dr. Aleena London Work Phone: [facility] 09-11-2023 14:47-0400 Body weight 107.[address] Aleena London Work Phone: [facility] 09-11-2023 14:47-0400 Diastolic blood pressure 82 mm[Hg] Dr. Aleena London Work Phone: [facility] 09-11-2023 14:47-0400 Heart rate 92 /min Dr. Aleena London Work Phone: [facility] 09-11-2023 14:47-0400 Respiratory rate 14 /min Dr. Aleena London Work Phone: [facility] 09-11-2023 14:47-0400 SaO2% (BldA) [Mass fraction] 99 % Dr. Aleena London Work Phone: [facility] 09-11-2023 14:47-0400 Systolic blood pressure 122 mm[Hg] Dr. Aleena London Work Phone: [facility] 09-05-2023 14:01-0400 Body height 167.[address] Aleena London Work Phone: [facility] 09-05-2023 14:00-0400 Body mass index (BMI) [Ratio] 38 kg/m2 Dr. Aleena London Work Phone: [facility] 09-05-2023 14:00-0400 Body weight 106.[address] Aleena London Work Phone: [facility] 09-05-2023 14:00-0400 Diastolic blood pressure 82 mm[Hg] Dr. Aleena London Work Phone: [facility] 09-05-2023 14:00-0400 Systolic blood pressure 139 mm[Hg] Dr. Aleena London Work Phone: [facility] 09-05-2023 09:46-0400 Body mass index (BMI) [Ratio] 37.8 kg/m2 Dr. Aleena London Work Phone: [facility] 09-05-2023 09:46-0400 Body weight 106.[address] Aleena London Work Phone: [facility] 09-05-2023 09:46-0400 Diastolic blood pressure 75 mm[Hg] Dr. Aleena London Work Phone: [facility] 09-05-2023 09:46-0400 Heart rate 71 /min Dr. Aleena London Work Phone: [facility] 09-05-2023 09:46-0400 SaO2% (BldA) [Mass fraction] 98 % Dr. Aleena London Work Phone: [facility] 09-05-2023 09:46-0400 Systolic blood pressure 113 mm[Hg] Dr. Aleena London Work Phone: [facility] 07-26-2023 00:39-0500 Respiratory rate 18 /min Dr. Aleena London Work Phone: [facility] 07-25-2023 19:13-0500 Body height 167.[address] Aleena London Work Phone: [facility] 07-25-2023 19:13-0500 Body mass index (BMI) [Ratio] 37.9 kg/m2 Dr. Aleena London Work Phone: [facility] 07-25-2023 19:13-0500 Body temperature 98 [degF] Dr. Aleena London Work Phone: [facility] 07-25-2023 19:13-0500 Body weight 106.[address] Aleena London Work Phone: [facility] 07-25-2023 19:13-0500 Diastolic blood pressure 84 mm[Hg] Dr. Aleena London Work Phone: [facility] 07-25-2023 19:13-0500 Heart rate 85 /min Dr. Aleena London Work Phone: [facility] 07-25-2023 19:13-0500 SaO2% (BldA) [Mass fraction] 100 % Dr. Aleena London Work Phone: [facility] 07-25-2023 19:13-0500 Systolic blood pressure 122 mm[Hg] Dr. Aleena London Work Phone: [facility] 07-18-2023 23:43-0500 Body temperature 98 [degF] Dr. Aleena London Work Phone: [facility] 07-18-2023 23:43-0500 Diastolic blood pressure 83 mm[Hg] Dr. Aleena London Work Phone: [facility] 07-18-2023 23:43-0500 Heart rate 74 /min Dr. Aleena London Work Phone: [facility] 07-18-2023 23:43-0500 Respiratory rate 16 /min Dr. Aleena London Work Phone: [facility] 07-18-2023 23:43-0500 SaO2% (BldA) [Mass fraction] 96 % Dr. Aleena London Work Phone: [facility] 07-18-2023 23:43-0500 Systolic blood pressure 120 mm[Hg] Dr. Aleena London Work Phone: [facility] 07-18-2023 20:12-0500 Body height 167.[address] Aleena London Work Phone: [facility] 07-18-2023 20:12-0500 Body mass index (BMI) [Ratio] 37.1 kg/m2 Dr. Aleena London Work Phone: [facility] 07-18-2023 20:12-0500 Body weight 104.[address] Aleena London Work Phone: [facility] 07-18-2023 11:04-0500 Body mass index (BMI) [Ratio] 37.5 kg/m2 Dr. Aleena London Work Phone: [facility] 07-18-2023 11:04-0500 Body weight 105.[address] Aleena London Work Phone: [facility] 07-18-2023 11:04-0500 Diastolic blood pressure 74 mm[Hg] Dr. Aleena London Work Phone: [facility] 07-18-2023 11:04-0500 Systolic blood pressure 112 mm[Hg] Dr. Aleena London Work Phone: [facility] 07-13-2023 12:29-0500 Body temperature 99 [degF] Dr. Aleena London Work Phone: [facility] 07-13-2023 12:29-0500 Diastolic blood pressure 82 mm[Hg] Dr. Aleena London Work Phone: [facility] 07-13-2023 12:29-0500 Heart rate 109 /min Dr. Aleena London Work Phone: [facility] 07-13-2023 12:29-0500 Respiratory rate 12 /min Dr. Aleena London Work Phone: [facility] 07-13-2023 12:29-0500 SaO2% (BldA) [Mass fraction] 98 % Dr. Aleena London Work Phone: [facility] 07-13-2023 12:29-0500 Systolic blood pressure 122 mm[Hg] Dr. Aleena London Work Phone: [facility] 07-04-2023 14:23-0500 Body mass index (BMI) [Ratio] 38 kg/m2 Dr. Aleena London Work Phone: [facility] 07-04-2023 14:23-0500 Body temperature 97.5 [degF] Dr. Aleena London Work Phone: [facility] 07-04-2023 14:23-0500 Body weight 106.[address] Aleena London Work Phone: [facility] 07-04-2023 14:23-0500 Diastolic blood pressure 62 mm[Hg] Dr. Aleena London Work Phone: [facility] 07-04-2023 14:23-0500 Heart rate 82 /min Dr. Aleena London Work Phone: [facility] 07-04-2023 14:23-0500 Respiratory rate 16 /min Dr. Aleena London Work Phone: [facility] 07-04-2023 14:23-0500 SaO2% (BldA) [Mass fraction] 99 % Dr. Aleena London Work Phone: [facility] 07-04-2023 14:23-0500 Systolic blood pressure 122 mm[Hg] Dr. Aleena London Work Phone: [facility] 06-29-2023 09:42-0500 Body mass index (BMI) [Ratio] 60.7 kg/m2 Dr. Aleena London Work Phone: [facility] 06-29-2023 09:42-0500 Body temperature 97.9 [degF] Dr. Aleena London Work Phone: [facility] 06-29-2023 09:42-0500 Body weight 170.[address] Aleena London Work Phone: [facility] 06-29-2023 09:42-0500 Diastolic blood pressure 78 mm[Hg] Dr. Aleena London Work Phone: [facility] 06-29-2023 09:42-0500 Heart rate 94 /min Dr. Aleena London Work Phone: [facility] 06-29-2023 09:42-0500 Respiratory rate 16 /min Dr. Aleena London Work Phone: [facility] 06-29-2023 09:42-0500 SaO2% (BldA) [Mass fraction] 100 % Dr. Aleena [place] Work Phone: [facility] 06-29-2023 09:42-0500 Systolic blood pressure 136 mm[Hg] Dr. Aleena [place] Work Phone: [facility] 05-04-2023 12:50-0500 Diastolic blood pressure 77 mm[Hg] Dr. Aleena [place] Work Phone: [facility] 05-04-2023 12:50-0500 Heart rate 71 /min Dr. Aleena [place] Work Phone: [facility] 05-04-2023 12:50-0500 Respiratory rate 16 /min Dr. Aleena [place] Work Phone: [facility] 05-04-2023 12:50-0500 Systolic blood pressure 117 mm[Hg] Dr. Aleena [place] Work Phone: [facility] 05-04-2023 12:19-0500 Body height 167.[address] Aleena [place] Work Phone: [facility] 05-04-2023 12:19-0500 Body mass index (BMI) [Ratio] 37.5 kg/m2 Dr. Aleena [place] Work Phone: [facility] 05-04-2023 12:19-0500 Body temperature 98.3 [degF] Dr. Aleena [place] Work Phone: [facility] 05-04-2023 12:19-0500 Body weight 105.[address] Aleena [place] Work Phone: [facility] 05-04-2023 12:19-0500 SaO2% (BldA) [Mass fraction] 100 % Dr. Aleena [place] Work Phone: [facility] 04-19-2023 11:12-0500 Body mass index (BMI) [Ratio] 37.5 kg/m2 Dr. Aleena [place] Work Phone: [facility] 04-19-2023 11:12-0500 Body temperature 98.7 [degF] Dr. Aleena [place] Work Phone: [facility] 04-19-2023 11:12-0500 Body weight 105.[address] Aleena [place] Work Phone: [facility] 04-19-2023 11:12-0500 Diastolic blood pressure 86 mm[Hg] Dr. Aleena [place] Work Phone: [facility] 04-19-2023 11:12-0500 Heart rate 85 /min Dr. Aleena [place] Work Phone: [facility] 04-19-2023 11:12-0500 Respiratory rate 16 /min Dr. Aleena [place] Work Phone: [facility] 04-19-2023 11:12-0500 SaO2% (BldA) [Mass fraction] 98 % Dr. Aleena [place] Work Phone: [facility] 04-19-2023 11:12-0500 Systolic blood pressure 122 mm[Hg] Dr. Aleena [place] Work Phone: [facility] 04-17-2023 13:09-0500 Body height 167.[address] Aleena [place] Work Phone: [facility] 04-17-2023 13:09-0500 Body mass index (BMI) [Ratio] 37.8 kg/m2 Dr. Aleena [place] Work Phone: [facility] 04-17-2023 13:09-0500 Body temperature 95.9 [degF] Dr. Aleena [place] Work Phone: [facility] 04-17-2023 13:09-0500 Body weight 106.[address] Aleena [place] Work Phone: [facility] 04-17-2023 13:09-0500 Diastolic blood pressure 94 mm[Hg] Dr. Aleena [place] Work Phone: [facility] 04-17-2023 13:09-0500 Heart rate 107 /min Dr. Aleena [place] Work Phone: [facility] 04-17-2023 13:09-0500 Respiratory rate 18 /min Dr. Aleena [place] Work Phone: [facility] 04-17-2023 13:09-0500 SaO2% (BldA) [Mass fraction] 100 % Dr. Aleena [place] Work Phone: [facility] 04-17-2023 13:09-0500 Systolic blood pressure 145 mm[Hg] Dr. Aleena [place] Work Phone: [facility] 04-06-2023 14:05-0500 Body height 167.[address] Aleena Lnodon Work Phone: [facility] 04-06-2023 14:03-0500 Body mass index (BMI) [Ratio] 37.8 kg/m2 Dr. Aleena [place] Work Phone: [facility] 04-06-2023 14:03-0500 Body weight 106.[address] Aleena [place] Work Phone: [facility] 04-06-2023 14:03-0500 Diastolic blood pressure 88 mm[Hg] Dr. Aleena [place] Work Phone: [facility] 04-06-2023 14:03-0500 Systolic blood pressure 124 mm[Hg] Dr. Aleena [place] Work Phone: [facility] 03-16-2023 08:15-0400 Body height 167.[address] Aleena [place] Work Phone: [facility] 03-07-2023 14:41-0400 Body temperature 99 [degF] Dr. Aleena [place] Work Phone: [facility] 03-07-2023 14:41-0400 Diastolic blood pressure 82 mm[Hg] Dr. Aleena [place] Work Phone: [facility] 03-07-2023 14:41-0400 Heart rate 82 /min Dr. Aleena [place] Work Phone: [facility] 03-07-2023 14:41-0400 Respiratory rate 17 /min Dr. Aleena [place] Work Phone: [facility] 03-07-2023 14:41-0400 SaO2% (BldA) [Mass fraction] 98 % Dr. Aleena [place] Work Phone: [facility] 03-07-2023 14:41-0400 Systolic blood pressure 125 mm[Hg] Dr. Aleena [place] Work Phone: [facility] 02-14-2023 08:24-0400 Body temperature 98.9 [degF] Dr. Aleena [place] Work Phone: [facility] 02-14-2023 08:24-0400 Diastolic blood pressure 71 mm[Hg] Dr. Aleena [place] Work Phone: [facility] 02-14-2023 08:24-0400 Heart rate 82 /min Dr. Aleena [place] Work Phone: [facility] 02-14-2023 08:24-0400 Respiratory rate 16 /min Dr. Aleena [place] Work Phone: [facility] 02-14-2023 08:24-0400 SaO2% (BldA) [Mass fraction] 98 % Dr. Aleena [place] Work Phone: [facility] 02-14-2023 08:24-0400 Systolic blood pressure 117 mm[Hg] Dr. Aleena [place] Work Phone: [facility] 02-14-2023 07:13-0400 Body height 167.[address] Aleena [place] Work Phone: [facility] 02-14-2023 07:13-0400 Body mass index (BMI) [Ratio] 36.3 kg/m2 Dr. Aleena [place] Work Phone: [facility] 02-14-2023 07:13-0400 Body weight [address] Aleena [place] Work Phone: [facility] 02-10-2023 09:57-0400 Body mass index (BMI) [Ratio] 36.8 kg/m2 Dr. Aleena [place] Work Phone: [facility] 02-10-2023 09:57-0400 Body weight 103.[address] Aleena [place] Work Phone: [facility] 02-10-2023 09:57-0400 Diastolic blood pressure 74 mm[Hg] Dr. Aleena [place] Work Phone: [facility] 02-10-2023 09:57-0400 Systolic blood pressure 123 mm[Hg] Dr. Aleena [place] Work Phone: [facility] 02-08-2023 23:04-0400 Diastolic blood pressure 74 mm[Hg] Dr. Aleena [place] Work Phone: [facility] 02-08-2023 23:04-0400 Heart rate 81 /min Dr. Aleena [place] Work Phone: [facility] 02-08-2023 23:04-0400 Respiratory rate 16 /min Dr. Aleena [place] Work Phone: [facility] 02-08-2023 23:04-0400 SaO2% (BldA) [Mass fraction] 99 % Dr. Aleena [place] Work Phone: [facility] 02-08-2023 23:04-0400 Systolic blood pressure 128 mm[Hg] Dr. Aleena [place] Work Phone: [facility] 02-08-2023 17:51-0400 Body height 167.[address] Aleena [place] Work Phone: [facility] 02-08-2023 17:51-0400 Body mass index (BMI) [Ratio] 36.4 kg/m2 Dr. Aleena [place] Work Phone: [facility] 02-08-2023 17:51-0400 Body temperature 97.5 [degF] Dr. Aleena [place] Work Phone: [facility] 02-08-2023 17:51-0400 Body weight 102.[address] Aleena [place] Work Phone: [facility] 02-04-2023 20:12-0400 Respiratory rate 16 /min Dr. Aleena [place] Work Phone: [facility] 02-04-2023 18:44-0400 Body height 167.[address] Aleena [place] Work Phone: [facility] 02-04-2023 18:44-0400 Body mass index (BMI) [Ratio] 36.4 kg/m2 Dr. Aleena [place] Work Phone: [facility] 02-04-2023 18:44-0400 Body temperature 97.6 [degF] Dr. Aleena [place] Work Phone: [facility] 02-04-2023 18:44-0400 Body weight 102.[address] Aleena [place] Work Phone: [facility] 02-04-2023 18:44-0400 Diastolic blood pressure 89 mm[Hg] Dr. Aleena [place] Work Phone: [facility] 02-04-2023 18:44-0400 Heart rate 88 /min Dr. Aleena [place] Work Phone: [facility] 02-04-2023 18:44-0400 SaO2% (BldA) [Mass fraction] 100 % Dr. Aleena [place] Work Phone: [facility] 02-04-2023 18:44-0400 Systolic blood pressure 125 mm[Hg] Dr. Aleena [place] Work Phone: [facility] 01-16-2023 09:13-0400 Body mass index (BMI) [Ratio] 36.5 kg/m2 Dr. Aleena [place] Work Phone: [facility] 01-16-2023 09:13-0400 Body temperature 95.5 [degF] Dr. Aleena [place] Work Phone: [facility] 01-16-2023 09:13-0400 Body weight 102.[address] Aleena [place] Work Phone: [facility] 01-16-2023 09:13-0400 Diastolic blood pressure 86 mm[Hg] Dr. Aleena [place] Work Phone: [facility] 01-16-2023 09:13-0400 Heart rate 96 /min Dr. Aleena [place] Work Phone: [facility] 01-16-2023 09:13-0400 Respiratory rate 18 /min Dr. Aleena [place] Work Phone: [facility] 01-16-2023 09:13-0400 SaO2% (BldA) [Mass fraction] 98 % Dr. Aleena [place] Work Phone: [facility] 01-16-2023 09:13-0400 Systolic blood pressure 134 mm[Hg] Dr. Aleena [place] Work Phone: [facility] 12-25-2022 12:31-0400 Body height 167.[address] Aleena [place] Work Phone: [facility] 12-25-2022 12:31-0400 Body mass index (BMI) [Ratio] 36.3 kg/m2 Dr. Aleena [place] Work Phone: [facility] 12-25-2022 12:31-0400 Body temperature 97.1 [degF] Dr. Aleena [place] Work Phone: [facility] 12-25-2022 12:31-0400 Body weight 102.[address] Aleena [place] Work Phone: [facility] 12-25-2022 12:31-0400 Diastolic blood pressure 124 mm[Hg] Dr. Aleena [place] Work Phone: [facility] 12-25-2022 12:31-0400 Heart rate 90 /min Dr. Aleena [place] Work Phone: [facility] 12-25-2022 12:31-0400 Respiratory rate 18 /min Dr. Aleena [place] Work Phone: [facility] 12-25-2022 12:31-0400 SaO2% (BldA) [Mass fraction] 100 % Dr. Aleena [place] Work Phone: [facility] 12-25-2022 12:31-0400 Systolic blood pressure 145 mm[Hg] Dr. Aleena [place] Work Phone: [facility] 12-15-2022 10:30-0400 Body height 167.[address] Aleena [place] Work Phone: [facility] 12-15-2022 10:30-0400 Body mass index (BMI) [Ratio] 36.1 kg/m2 Dr. Aleena [place] Work Phone: [facility] 12-15-2022 10:30-0400 Body weight 101.[address] Aleena [place] Work Phone: [facility] 12-15-2022 10:30-0400 Diastolic blood pressure 80 mm[Hg] Dr. Aleena [place] Work Phone: [facility] 12-15-2022 10:30-0400 Systolic blood pressure 125 mm[Hg] Dr. Aleena [place] Work Phone: [facility] 12-08-2022 11:55-0400 Body mass index (BMI) [Ratio] 35.7 kg/m2 Dr. Aleena [place] Work Phone: [facility] 12-08-2022 11:55-0400 Body weight 100.[address] Aleena [place] Work Phone: [facility] 12-08-2022 11:55-0400 Diastolic blood pressure 85 mm[Hg] Dr. Aleena [place] Work Phone: [facility] 12-08-2022 11:55-0400 Systolic blood pressure 121 mm[Hg] Dr. Aleena [place] Work Phone: [facility] 11-19-2022 20:47-0400 Body height 167.[address] Aleena [place] Work Phone: [facility] 11-19-2022 20:47-0400 Body mass index (BMI) [Ratio] 36.1 kg/m2 Dr. Aleena [place] Work Phone: [facility] 11-19-2022 20:47-0400 Body temperature 97.6 [degF] Dr. Aleena [place] Work Phone: [facility] 11-19-2022 20:47-0400 Body weight 101.[address] Aleena [place] Work Phone: [facility] 11-19-2022 20:47-0400 Diastolic blood pressure 94 mm[Hg] Dr. Aleena [place] Work Phone: [facility] 11-19-2022 20:47-0400 Heart rate 99 /min Dr. Aleena [place] Work Phone: [facility] 11-19-2022 20:47-0400 Respiratory rate 14 /min Dr. Aleena [place] Work Phone: [facility] 11-19-2022 20:47-0400 SaO2% (BldA) [Mass fraction] 100 % Dr. Aleena [place] Work Phone: [facility] 11-19-2022 20:47-0400 Systolic blood pressure 130 mm[Hg] Dr. Aleena [place] Work Phone: [facility] 11-16-2022 10:43-0400 Body height 167.6 cm Lukasz Eubanks MD Work Phone: [facility] 11-16-2022 10:43-0400 Body temperature 98.6 [degF] Lukasz Eubanks MD Work Phone: [facility] 11-16-2022 10:43-0400 Body weight 102.06 kg Lukasz Eubanks MD Work Phone: [facility] 11-16-2022 10:43-0400 Diastolic blood pressure 90 mm[Hg] Lukasz Eubanks MD Work Phone: [facility] 11-16-2022 10:43-0400 Heart rate 79 /min Lukasz Eubanks MD Work Phone: [facility] 11-16-2022 10:43-0400 SaO2% (BldA) [Mass fraction] 100 % Lukasz Eubanks MD Work Phone: [facility] 11-16-2022 10:43-0400 Systolic blood pressure 125 mm[Hg] Lukasz Eubanks MD Work Phone: [facility] 11-08-2022 16:37-0400 Body height 167.[address] Aleena [place] Work Phone: [facility] 11-08-2022 16:37-0400 Body mass index (BMI) [Ratio] 36.2 kg/m2 Dr. Aleena [place] Work Phone: [facility] 11-08-2022 16:37-0400 Body temperature 96.5 [degF] Dr. Aleena [place] Work Phone: [facility] 11-08-2022 16:37-0400 Body weight 101.[address] Aleena [place] Work Phone: [facility] 11-08-2022 16:37-0400 Diastolic blood pressure 100 mm[Hg] Dr. Aleena [place] Work Phone: [facility] 11-08-2022 16:37-0400 Heart rate 100 /min Dr. Aleena [place] Work Phone: [facility] 11-08-2022 16:37-0400 Respiratory rate 18 /min Dr. Aleena [place] Work Phone: [facility] 11-08-2022 16:37-0400 SaO2% (BldA) [Mass fraction] 93 % Dr. Aleena [place] Work Phone: [facility] 11-08-2022 16:37-0400 Systolic blood pressure 114 mm[Hg] Dr. Aleena [place] Work Phone: [facility] 09-02-2022 10:43-0400 Body height 167.[address] Aleena [place] Work Phone: [facility] 09-02-2022 10:43-0400 Body mass index (BMI) [Ratio] 35.6 kg/m2 Dr. Aleena [place] Work Phone: [facility] 09-02-2022 10:43-0400 Body temperature 99.5 [degF] Dr. Aleena [place] Work Phone: [facility] 09-02-2022 10:43-0400 Body weight 100.[address] Aleena [place] Work Phone: [facility] 09-02-2022 10:43-0400 Diastolic blood pressure 74 mm[Hg] Dr. Aleena [place] Work Phone: [facility] 09-02-2022 10:43-0400 Heart rate 90 /min Dr. Aleena [place] Work Phone: [facility] 09-02-2022 10:43-0400 Respiratory rate 16 /min Dr. Aleena [place] Work Phone: [facility] 09-02-2022 10:43-0400 SaO2% (BldA) [Mass fraction] 98 % Dr. Aleena [place] Work Phone: [facility] 09-02-2022 10:43-0400 Systolic blood pressure 120 mm[Hg] Dr. Aleena [place] Work Phone: [facility] 08-26-2022 16:47-0400 Respiratory rate 18 /min Dr. Aleena [place] Work Phone: [facility] 08-26-2022 15:00-0400 Body mass index (BMI) [Ratio] 36.4 kg/m2 Dr. Aleena London Work Phone: [facility] 08-26-2022 15:00-0400 Body temperature 97.7 [degF] Dr. Aleena [place] Work Phone: [facility] 08-26-2022 15:00-0400 Body weight 102.[address] Aleena [place] Work Phone: [facility] 08-26-2022 15:00-0400 Diastolic blood pressure 93 mm[Hg] Dr. Aleena [place] Work Phone: [facility] 08-26-2022 15:00-0400 Heart rate 97 /min Dr. Aleena [place] Work Phone: [facility] 08-26-2022 15:00-0400 SaO2% (BldA) [Mass fraction] 100 % Dr. Aleena [place] Work Phone: [facility] 08-26-2022 15:00-0400 Systolic blood pressure 131 mm[Hg] Dr. Aleena [place] Work Phone: [facility] 08-22-2022 10:08-0400 Body mass index (BMI) [Ratio] 36.4 kg/m2 Dr. Aleena [place] Work Phone: [facility] 08-22-2022 10:08-0400 Body temperature 97.6 [degF] Dr. Aleena [place] Work Phone: [facility] 08-22-2022 10:08-0400 Body weight 102.[address] Aleena [place] Work Phone: [facility] 08-22-2022 10:08-0400 Diastolic blood pressure 80 mm[Hg] Dr. Aleena [place] Work Phone: [facility] 08-22-2022 10:08-0400 Heart rate 84 /min Dr. Aleena [place] Work Phone: [facility] 08-22-2022 10:08-0400 Respiratory rate 18 /min Dr. Aleena [place] Work Phone: [facility] 08-22-2022 10:08-0400 SaO2% (BldA) [Mass fraction] 96 % Dr. Aleena [place] Work Phone: [facility] 08-22-2022 10:08-0400 Systolic blood pressure 136 mm[Hg] Dr. Aleena [place] Work Phone: [facility] 08-18-2022 00:17-0400 Diastolic blood pressure 80 mm[Hg] Dr. Aleena [place] Work Phone: [facility] 08-18-2022 00:17-0400 Heart rate 81 /min Dr. Aleena [place] Work Phone: [facility] 08-18-2022 00:17-0400 Respiratory rate 16 /min Dr. Aleena [place] Work Phone: [facility] 08-18-2022 00:17-0400 SaO2% (BldA) [Mass fraction] 98 % Dr. Aleena [place] Work Phone: [facility] 08-18-2022 00:17-0400 Systolic blood pressure 130 mm[Hg] Dr. Aleena [place] Work Phone: [facility] 08-17-2022 21:13-0400 Body mass index (BMI) [Ratio] 36.7 kg/m2 Dr. Aleena [place] Work Phone: [facility] 08-17-2022 21:13-0400 Body temperature 96.6 [degF] Dr. Aleena [place] Work Phone: [facility] 08-17-2022 21:13-0400 Body weight 103.[address] Aleena [place] Work Phone: [facility] 08-15-2022 17:17-0400 Diastolic Blood Pressure Non-Invasive 82 1 ALAN QUINN DO [facility] 08-15-2022 17:17-0400 Heart rate 90 /min ALAN QUINN DO [facility] 08-15-2022 17:17-0400 Respiratory rate 18 /min ALAN QUINN DO [facility] 08-15-2022 17:17-0400 Systolic Blood Pressure Non-Invasive 154 1 ALAN QUINN DO [facility] 08-15-2022 16:04-0400 Body height 167.6 cm ALAN QUINN DO [facility] 08-15-2022 16:04-0400 Body temperature 99.14 [degF] ALAN QUINN DO [facility] 08-15-2022 16:04-0400 Body weight 103.5 kg ALAN QUINN DO [facility] 08-15-2022 16:04-0400 Diastolic Blood Pressure Non-Invasive 79 1 ALAN QUINN DO [facility] 08-15-2022 16:04-0400 Heart rate 108 /min ALAN QUINN DO [facility] 08-15-2022 16:04-0400 Respiratory rate 20 /min ALAN QUINN DO [facility] 08-15-2022 16:04-0400 Systolic Blood Pressure Non-Invasive 125 1 ALAN QUINN DO [facility] 08-08-2022 11:35-0400 Body mass index (BMI) [Ratio] 37 kg/m2 Dr. Aleena [place] Work Phone: [facility] 08-08-2022 11:35-0400 Body weight 103.[address] Aleena [place] Work Phone: [facility] 08-08-2022 11:35-0400 Diastolic blood pressure 72 mm[Hg] Dr. Aleena [place] Work Phone: [facility] 08-08-2022 11:35-0400 Systolic blood pressure 114 mm[Hg] Dr. Aleena [place] Work Phone: [facility] 07-17-2022 20:31-0500 Diastolic blood pressure 81 mm[Hg] Dr. Aleena [place] Work Phone: [facility] 07-17-2022 20:31-0500 Heart rate 83 /min Dr. Aleena [place] Work Phone: [facility] 07-17-2022 20:31-0500 Respiratory rate 24 /min Dr. Aleena [place] Work Phone: [facility] 07-17-2022 20:31-0500 SaO2% (BldA) [Mass fraction] 121 % Dr. Aleena [place] Work Phone: [facility] 07-17-2022 20:31-0500 Systolic blood pressure 121 mm[Hg] Dr. Aleena [place] Work Phone: [facility] 07-17-2022 18:22-0500 Body height 167.[address] Aleena [place] Work Phone: [facility] 07-17-2022 18:22-0500 Body mass index (BMI) [Ratio] 36.8 kg/m2 Dr. Aleena [place] Work Phone: [facility] 07-17-2022 18:22-0500 Body temperature 98.2 [degF] Dr. Aleena [place] Work Phone: [facility] 07-17-2022 18:22-0500 Body weight 103.[address] Aleena [place] Work Phone: [facility] 07-14-2022 14:08-0500 Body mass index (BMI) [Ratio] 37.3 kg/m2 Dr. Aleena [place] Work Phone: [facility] 07-14-2022 14:08-0500 Body weight 104.[address] Aleena London Work Phone: [facility] 07-14-2022 14:08-0500 Diastolic blood pressure 84 mm[Hg] Dr. Aleena [place] Work Phone: [facility] 07-14-2022 14:08-0500 Heart rate 101 /min Dr. Aleena London Work Phone: [facility] 07-14-2022 14:08-0500 SaO2% (BldA) [Mass fraction] 97 % Dr. Aleena [place] Work Phone: [facility] 07-14-2022 14:08-0500 Systolic blood pressure 130 mm[Hg] Dr. Aleena [place] Work Phone: [facility] 06-29-2022 08:10-0500 Body height 167.[address] Aleena [place] Work Phone: [facility] 06-29-2022 08:10-0500 Body mass index (BMI) [Ratio] 37.5 kg/m2 Dr. Aleena London Work Phone: [facility] 06-29-2022 08:10-0500 Body temperature 98.8 [degF] Dr. Aleena [place] Work Phone: [facility] 06-29-2022 08:10-0500 Body weight 105.[address] Aleena [place] Work Phone: [facility] 06-29-2022 08:10-0500 Diastolic blood pressure 86 mm[Hg] Dr. Aleena [place] Work Phone: [facility] 06-29-2022 08:10-0500 Heart rate 76 /min Dr. Aleena London Work Phone: [facility] 06-29-2022 08:10-0500 Respiratory rate 18 /min Dr. Aleena London Work Phone: [facility] 06-29-2022 08:10-0500 SaO2% (BldA) [Mass fraction] 97 % Dr. Aleena London Work Phone: [facility] 06-29-2022 08:10-0500 Systolic blood pressure 124 mm[Hg] Dr. Aleena [place] Work Phone: [facility] 06-10-2022 09:10-0500 Body height 167.[address] Aleena [place] Work Phone: [facility] 06-10-2022 09:10-0500 Body mass index (BMI) [Ratio] 36.8 kg/m2 Dr. Aleena London Work Phone: [facility] 06-10-2022 09:10-0500 Body temperature 98.1 [degF] Dr. Aleena London Work Phone: [facility] 06-10-2022 09:10-0500 Body weight 103.[address] Aleena London Work Phone: [facility] 06-10-2022 09:10-0500 Diastolic blood pressure 127 mm[Hg] Dr. Aleena London Work Phone: [facility] 06-10-2022 09:10-0500 Heart rate 96 /min Dr. Aleena London Work Phone: [facility] 06-10-2022 09:10-0500 Respiratory rate 15 /min Dr. Aleena London Work Phone: [facility] 06-10-2022 09:10-0500 SaO2% (BldA) [Mass fraction] 100 % Dr. Aleena London Work Phone: [facility] 06-10-2022 09:10-0500 Systolic blood pressure 142 mm[Hg] Dr. Aleena Londno Work Phone: [facility] 05-30-2022 09:42-0500 Body mass index (BMI) [Ratio] 36.9 kg/m2 Dr. Aleena London Work Phone: [facility] 05-30-2022 09:42-0500 Body temperature 98.1 [degF] Dr. Aleena London Work Phone: [facility] 05-30-2022 09:42-0500 Body weight 103.[address] Aleena London Work Phone: [facility] 05-30-2022 09:42-0500 Diastolic blood pressure 74 mm[Hg] Dr. Aleena London Work Phone: [facility] 05-30-2022 09:42-0500 Heart rate 82 /min Dr. Aleena London Work Phone: [facility] 05-30-2022 09:42-0500 Respiratory rate 14 /min Dr. Aleena London Work Phone: [facility] 05-30-2022 09:42-0500 SaO2% (BldA) [Mass fraction] 99 % Dr. Aleena London Work Phone: [facility] 05-30-2022 09:42-0500 Systolic blood pressure 126 mm[Hg] Dr. Aleena London Work Phone: [facility] 05-24-2022 08:46-0500 Body mass index (BMI) [Ratio] 37.1 kg/m2 Dr. Aleena London Work Phone: [facility] 05-24-2022 08:46-0500 Body temperature 97.8 [degF] Dr. Aleena London Work Phone: [facility] 05-24-2022 08:46-0500 Body weight 104.[address] Aleena London Work Phone: [facility] 05-24-2022 08:46-0500 Diastolic blood pressure 84 mm[Hg] Dr. Aleena London Work Phone: [facility] 05-24-2022 08:46-0500 Heart rate 89 /min Dr. Aleena London Work Phone: [facility] 05-24-2022 08:46-0500 Respiratory rate 20 /min Dr. Aleena London Work Phone: [facility] 05-24-2022 08:46-0500 SaO2% (BldA) [Mass fraction] 99 % Dr. Aleena London Work Phone: [facility] 05-24-2022 08:46-0500 Systolic blood pressure 129 mm[Hg] Dr. Aleena London Work Phone: [facility] 05-23-2022 02:21-0500 Diastolic blood pressure 82 mm[Hg] Dr. Aleena London Work Phone: [facility] 05-23-2022 02:21-0500 Heart rate 77 /min Dr. Aleena London Work Phone: [facility] 05-23-2022 02:21-0500 Respiratory rate 15 /min Dr. Aleena London Work Phone: [facility] 05-23-2022 02:21-0500 SaO2% (BldA) [Mass fraction] 99 % Dr. Aleena London Work Phone: [facility] 05-23-2022 02:21-0500 Systolic blood pressure 122 mm[Hg] Dr. Aleena London Work Phone: [facility] 05-22-2022 23:54-0500 Body height 167.[address] Aleena London Work Phone: [facility] Work Phone: 05-22-2022 23:54-0500 Body mass index (BMI) [Ratio] 37.3 kg/m2 Dr. Aleena London Work Phone: [facility] 05-22-2022 23:54-0500 Body temperature 98 [degF] Dr. Aleena London Work Phone: [facility] 05-22-2022 23:54-0500 Body weight [address] Aleena London Work Phone: [facility] 05-04-2022 13:18-0500 Body mass index (BMI) [Ratio] 36.6 kg/m2 Dr. Aleena London Work Phone: [facility] 05-04-2022 13:18-0500 Body weight 102.[address] Aleena London Work Phone: [facility] 05-04-2022 13:18-0500 Diastolic blood pressure 82 mm[Hg] Dr. Aleena London Work Phone: [facility] 05-04-2022 13:18-0500 Systolic blood pressure 121 mm[Hg] Dr. Aleena London Work Phone: [facility] 04-20-2022 11:47-0500 Body mass index (BMI) [Ratio] 37.8 kg/m2 Dr. Aleena London Work Phone: [facility] 04-20-2022 11:47-0500 Body weight 103.[address] Aleena London Work Phone: [facility] 04-20-2022 11:47-0500 Diastolic blood pressure 71 mm[Hg] Dr. Aleena London Work Phone: [facility] 04-20-2022 11:47-0500 Systolic blood pressure 111 mm[Hg] Dr. Aleena London Work Phone: [facility] 04-18-2022 17:09-0500 Body height 165.[address] Aleena London Work Phone: [facility] Work Phone: 04-18-2022 17:09-0500 Body mass index (BMI) [Ratio] 37.6 kg/m2 Dr. Aleena London Work Phone: [facility] 04-18-2022 17:09-0500 Body temperature 97.7 [degF] Dr. Aleena London Work Phone: [facility] 04-18-2022 17:09-0500 Body weight 102.[address] Aleena London Work Phone: [facility] 04-18-2022 17:09-0500 Diastolic blood pressure 76 mm[Hg] Dr. Aleena London Work Phone: [facility] 04-18-2022 17:09-0500 Heart rate 102 /min Dr. Aleena London Work Phone: [facility] 04-18-2022 17:09-0500 Respiratory rate 14 /min Dr. Aleena London Work Phone: [facility] 04-18-2022 17:09-0500 SaO2% (BldA) [Mass fraction] 99 % Dr. Aleena London Work Phone: [facility] 04-18-2022 17:09-0500 Systolic blood pressure 123 mm[Hg] Dr. Aleena London Work Phone: [facility] 04-16-2022 09:30-0500 Body temperature 97.8 [degF] Dr. Aleena London Work Phone: [facility] 04-16-2022 09:30-0500 Diastolic blood pressure 61 mm[Hg] Dr. Aleena Lodnon Work Phone: [facility] 04-16-2022 09:30-0500 Heart rate 82 /min Dr. Aleena London Work Phone: [facility] 04-16-2022 09:30-0500 Respiratory rate 17 /min Dr. Aleena London Work Phone: [facility] 04-16-2022 09:30-0500 SaO2% (BldA) [Mass fraction] 100 % Dr. Aleena London Work Phone: [facility] 04-16-2022 09:30-0500 Systolic blood pressure 106 mm[Hg] Dr. Aleena London Work Phone: [facility] 04-16-2022 02:05-0500 Body temperature 98.8 [degF] Dr. Aleena London Work Phone: [facility] Work Phone: 04-16-2022 02:05-0500 Diastolic blood pressure 67 mm[Hg] Dr. Aleena London Work Phone: [facility] Work Phone: 04-16-2022 02:05-0500 Heart rate 93 /min Dr. Aleena London Work Phone: [facility] Work Phone: 04-16-2022 02:05-0500 Respiratory rate 18 /min Dr. Aleena London Work Phone: [facility] Work Phone: 04-16-2022 02:05-0500 SaO2% (BldA) [Mass fraction] 98 % Dr. Aleena London Work Phone: [facility] Work Phone: 04-16-2022 02:05-0500 Systolic blood pressure 125 mm[Hg] Dr. Aleena London Work Phone: [facility] Work Phone: 04-15-2022 09:48-0500 Inhaled oxygen flow rate 6 L/min Dr. Aleena London Work Phone: [facility] 04-14-2022 21:53-0500 Body height 165.[address] Aleena London Work Phone: [facility] Work Phone: 04-14-2022 21:53-0500 Body mass index (BMI) [Ratio] 37.3 kg/m2 Dr. Aleena London Work Phone: [facility] 04-14-2022 21:53-0500 Body weight 101.[address] Aleena London Work Phone: [facility] 04-12-2022 20:13-0500 Body temperature 98.1 [degF] Dr. Aleena London Work Phone: [facility] Work Phone: 04-12-2022 20:13-0500 Diastolic blood pressure 56 mm[Hg] Dr. Aleena London Work Phone: [facility] Work Phone: 04-12-2022 20:13-0500 Heart rate 76 /min Dr. Aleena London Work Phone: [facility] Work Phone: 04-12-2022 20:13-0500 Respiratory rate 15 /min Dr. Aleena London Work Phone: [facility] Work Phone: 04-12-2022 20:13-0500 SaO2% (BldA) [Mass fraction] 97 % Dr. Aleena London Work Phone: [facility] Work Phone: 04-12-2022 20:13-0500 Systolic blood pressure 98 mm[Hg] Dr. Aleena London Work Phone: [facility] Work Phone: 04-12-2022 13:43-0500 Body height 165.[address] Aleena London Work Phone: [facility] Work Phone: 04-12-2022 13:43-0500 Body mass index (BMI) [Ratio] 37.6 kg/m2 Dr. Aleena London Work Phone: [facility] Work Phone: 04-12-2022 13:43-0500 Body weight 102.[address] Aleena London Work Phone: [facility] Work Phone: 04-05-2022 09:31-0500 Body height 167.[address] Aleena London Work Phone: [facility] Work Phone: 04-05-2022 09:31-0500 Body mass index (BMI) [Ratio] 36.4 kg/m2 Dr. Aleena London Work Phone: [facility] 04-05-2022 09:31-0500 Body weight 102.[address] Aleena London Work Phone: [facility] 04-05-2022 09:31-0500 Diastolic blood pressure 74 mm[Hg] Dr. Aleena London Work Phone: [facility] 04-05-2022 09:31-0500 Systolic blood pressure 107 mm[Hg] Dr. Aleena London Work Phone: [facility] 03-30-2022 17:35-0500 Heart rate 82 /min Dr. Aleena London Work Phone: [facility] 03-30-2022 17:35-0500 Respiratory rate 15 /min Dr. Aleena London Work Phone: [facility] 03-30-2022 17:35-0500 SaO2% (BldA) [Mass fraction] 98 % Dr. Aleena London Work Phone: [facility] 03-30-2022 14:04-0500 Body mass index (BMI) [Ratio] 36.9 kg/m2 Dr. Aleena London Work Phone: [facility] 03-30-2022 14:04-0500 Body temperature 97.4 [degF] Dr. Aleena London Work Phone: [facility] 03-30-2022 14:04-0500 Body weight 103.[address] Aleena London Work Phone: [facility] 03-30-2022 14:04-0500 Diastolic blood pressure 83 mm[Hg] Dr. Aleena London Work Phone: [facility] 03-30-2022 14:04-0500 Systolic blood pressure 119 mm[Hg] Dr. Aleena London Work Phone: [facility] 03-30-2022 13:02-0500 Body mass index (BMI) [Ratio] 36.9 kg/m2 Dr. Aleena London Work Phone: [facility] 03-30-2022 13:02-0500 Body weight 103.[address] Aleena London Work Phone: [facility] 03-30-2022 13:02-0500 Diastolic blood pressure 73 mm[Hg] Dr. Aleena London Work Phone: [facility] 03-30-2022 13:02-0500 Systolic blood pressure 118 mm[Hg] Dr. Aleena London Work Phone: [facility] 03-23-2022 11:26-0400 Body temperature 98.2 [degF] Dr. Aleena London Work Phone: [facility] 03-23-2022 11:26-0400 Diastolic blood pressure 65 mm[Hg] Dr. Aleena London Work Phone: [facility] 03-23-2022 11:26-0400 Heart rate 66 /min Dr. Aleena London Work Phone: [facility] 03-23-2022 11:26-0400 Respiratory rate 20 /min Dr. Aleena London Work Phone: [facility] 03-23-2022 11:26-0400 SaO2% (BldA) [Mass fraction] 97 % Dr. Aleena London Work Phone: [facility] 03-23-2022 11:26-0400 Systolic blood pressure 106 mm[Hg] Dr. Aleena London Work Phone: [facility] 03-22-2022 18:30-0400 Inhaled oxygen flow rate 4 L/min Dr. Aleena London Work Phone: [facility] 03-22-2022 17:41-0400 Body height 167.[address] Aleena London Work Phone: [facility] Work Phone: 03-22-2022 17:41-0400 Body mass index (BMI) [Ratio] 38.4 kg/m2 Dr. Aleena London Work Phone: [facility] 03-22-2022 17:41-0400 Body weight [address] Aleena London Work Phone: [facility] 03-12-2022 12:29-0400 Body height 167.[address] Aleena London Work Phone: [facility] Work Phone: 03-12-2022 12:29-0400 Body mass index (BMI) [Ratio] 37.9 kg/m2 Dr. Aleena London Work Phone: [facility] 03-12-2022 12:29-0400 Body temperature 98.1 [degF] Dr. Aleena London Work Phone: [facility] 03-12-2022 12:29-0400 Body weight 106.[address] Aleena London Work Phone: [facility] 03-12-2022 12:29-0400 Diastolic blood pressure 106 mm[Hg] Dr. Aleena London Work Phone: [facility] 03-12-2022 12:29-0400 Heart rate 119 /min Dr. Aleena London Work Phone: [facility] 03-12-2022 12:29-0400 Respiratory rate 16 /min Dr. Aleena London Work Phone: [facility] 03-12-2022 12:29-0400 SaO2% (BldA) [Mass fraction] 98 % Dr. Aleena London Work Phone: [facility] 03-12-2022 12:29-0400 Systolic blood pressure 157 mm[Hg] Dr. Aleena London Work Phone: [facility] 03-04-2022 16:11-0400 Heart rate 77 /min Dr. Aleena London Work Phone: [facility] 03-04-2022 16:11-0400 Respiratory rate 15 /min Dr. Aleena London Work Phone: [facility] 03-04-2022 16:11-0400 SaO2% (BldA) [Mass fraction] 98 % Dr. Aleena London Work Phone: [facility] 03-04-2022 13:28-0400 Body height 165.[address] Aleena London Work Phone: [facility] Work Phone: 03-04-2022 13:28-0400 Body mass index (BMI) [Ratio] 38.5 kg/m2 Dr. Aleena London Work Phone: [facility] 03-04-2022 13:28-0400 Body temperature 97.2 [degF] Dr. Aleena London Work Phone: [facility] 03-04-2022 13:28-0400 Body weight 104.[address] Aleena London Work Phone: [facility] 03-04-2022 13:28-0400 Diastolic blood pressure 91 mm[Hg] Dr. Aleena London Work Phone: [facility] 03-04-2022 13:28-0400 Systolic blood pressure 156 mm[Hg] Dr. Aleena London Work Phone: [facility] 03-02-2022 13:00-0400 Body mass index (BMI) [Ratio] 37.8 kg/m2 Dr. Aleena London Work Phone: [facility] 03-02-2022 13:00-0400 Body temperature 98.8 [degF] Dr. Aleena London Work Phone: [facility] 03-02-2022 13:00-0400 Body weight 106.[address] Aleena London Work Phone: [facility] 03-02-2022 13:00-0400 Diastolic blood pressure 82 mm[Hg] Dr. Aleena Lodnon Work Phone: [facility] 03-02-2022 13:00-0400 Heart rate 89 /min Dr. Aleena London Work Phone: [facility] 03-02-2022 13:00-0400 Respiratory rate 14 /min Dr. Aleena London Work Phone: [facility] 03-02-2022 13:00-0400 SaO2% (BldA) [Mass fraction] 97 % Dr. Aleena London Work Phone: [facility] 03-02-2022 13:00-0400 Systolic blood pressure 134 mm[Hg] Dr. Aleena London Work Phone: [facility] 02-28-2022 11:09-0400 Body temperature 98.7 [degF] Dr. Aleena London Work Phone: [facility] 02-28-2022 11:09-0400 Diastolic blood pressure 74 mm[Hg] Dr. Aleena London Work Phone: [facility] 02-28-2022 11:09-0400 Heart rate 112 /min Dr. Aleena London Work Phone: [facility] 02-28-2022 11:09-0400 Respiratory rate 14 /min Dr. Aleena London Work Phone: [facility] 02-28-2022 11:09-0400 SaO2% (BldA) [Mass fraction] 99 % Dr. Aleena London Work Phone: [facility] 02-28-2022 11:09-0400 Systolic blood pressure 126 mm[Hg] Dr. Aleena London Work Phone: [facility] 02-23-2022 10:26-0400 Body height 167.[address] Aleena London Work Phone: [facility] Work Phone: 02-23-2022 10:26-0400 Body mass index (BMI) [Ratio] 37.8 kg/m2 Dr. Aleena London Work Phone: [facility] 02-23-2022 10:26-0400 Body weight 106.[address] Aleena London Work Phone: [facility] 02-23-2022 10:26-0400 Diastolic blood pressure 83 mm[Hg] Dr. Aleena London Work Phone: [facility] 02-23-2022 10:26-0400 Heart rate 80 /min Dr. Aleena London Work Phone: [facility] 02-23-2022 10:26-0400 SaO2% (BldA) [Mass fraction] 96 % Dr. Aleena London Work Phone: [facility] 02-23-2022 10:26-0400 Systolic blood pressure 126 mm[Hg] Dr. Aleena London Work Phone: [facility] 02-15-2022 11:31-0400 Body mass index (BMI) [Ratio] 37.6 kg/m2 Dr. Aleena London Work Phone: [facility] 02-15-2022 11:31-0400 Body temperature 98.1 [degF] Dr. Aleena London Work Phone: [facility] 02-15-2022 11:31-0400 Body weight 105.[address] lAeena London Work Phone: [facility] 02-15-2022 11:31-0400 Diastolic blood pressure 85 mm[Hg] Dr. Aleena London Work Phone: [facility] 02-15-2022 11:31-0400 Heart rate 96 /min Dr. Aleena London Work Phone: [facility] 02-15-2022 11:31-0400 Respiratory rate 18 /min Dr. Aleena London Work Phone: [facility] 02-15-2022 11:31-0400 SaO2% (BldA) [Mass fraction] 100 % Dr. Aleena London Work Phone: [facility] 02-15-2022 11:31-0400 Systolic blood pressure 149 mm[Hg] Dr. Aleena London Work Phone: [facility] 02-15-2022 08:52-0400 Body mass index (BMI) [Ratio] 37.5 kg/m2 Dr. Aleena London Work Phone: [facility] 02-15-2022 08:52-0400 Body weight 105.[address] Aleena London Work Phone: [facility] 02-15-2022 08:52-0400 Diastolic blood pressure 85 mm[Hg] Dr. Aleena London Work Phone: [facility] 02-15-2022 08:52-0400 Systolic blood pressure 120 mm[Hg] Dr. Aleena London Work Phone: [facility] 02-08-2022 14:00-0400 Body mass index (BMI) [Ratio] 37.5 kg/m2 Dr. Aleena London Work Phone: [facility] Work Phone: 02-08-2022 14:00-0400 Body temperature 99 [degF] Dr. Aleena London Work Phone: [facility] Work Phone: 02-08-2022 14:00-0400 Body weight 105.[address] Aleena London Work Phone: [facility] Work Phone: 02-08-2022 14:00-0400 Diastolic blood pressure 86 mm[Hg] Dr. Aleena London Work Phone: [facility] Work Phone: 02-08-2022 14:00-0400 Heart rate 89 /min Dr. Aleena London Work Phone: [facility] Work Phone: 02-08-2022 14:00-0400 Respiratory rate 14 /min Dr. Aleena London Work Phone: [facility] Work Phone: 02-08-2022 14:00-0400 SaO2% (BldA) [Mass fraction] 99 % Dr. Aleena London Work Phone: [facility] Work Phone: 02-08-2022 14:00-0400 Systolic blood pressure 132 mm[Hg] Dr. Aleena London Work Phone: [facility] Work Phone: 12-30-2021 15:28-0400 Body height 167.[address] Aleena London Work Phone: [facility] Work Phone: 12-30-2021 15:28-0400 Body mass index (BMI) [Ratio] 37.5 kg/m2 Dr. Aleena London Work Phone: [facility] Work Phone: 12-30-2021 15:28-0400 Body weight 105.[address] Aleena London Work Phone: [facility] Work Phone: 12-30-2021 15:28-0400 Diastolic blood pressure 82 mm[Hg] Dr. Aleena London Work Phone: [facility] Work Phone: 12-30-2021 15:28-0400 Heart rate 87 /min Dr. Aleena London Work Phone: [facility] Work Phone: 12-30-2021 15:28-0400 SaO2% (BldA) [Mass fraction] 97 % Dr. Aleena London Work Phone: [facility] Work Phone: 12-30-2021 15:28-0400 Systolic blood pressure 138 mm[Hg] Dr. Aleena London Work Phone: [facility] Work Phone: 12-24-2021 00:35-0400 Heart rate 89 /min Dr. Aleena London Work Phone: [facility] Work Phone: 12-24-2021 00:35-0400 Respiratory rate 16 /min Dr. Aleena London Work Phone: [facility] Work Phone: 12-24-2021 00:35-0400 SaO2% (BldA) [Mass fraction] 99 % Dr. Aleena London Work Phone: [facility] Work Phone: 12-23-2021 22:19-0400 Body height 167.[address] Aleena London Work Phone: [facility] Work Phone: 12-23-2021 22:19-0400 Body mass index (BMI) [Ratio] 37.4 kg/m2 Dr. Aleena London Work Phone: [facility] Work Phone: 12-23-2021 22:19-0400 Body temperature 98.1 [degF] Dr. Aleena London Work Phone: [facility] Work Phone: 12-23-2021 22:19-0400 Body weight 105.[address] Aleena London Work Phone: [facility] Work Phone: 12-23-2021 22:19-0400 Diastolic blood pressure 97 mm[Hg] Dr. Aleena London Work Phone: [facility] Work Phone: 12-23-2021 22:19-0400 Systolic blood pressure 139 mm[Hg] Dr. Aleena London Work Phone: [facility] Work Phone: 12-14-2021 10:42-0400 Body mass index (BMI) [Ratio] 37.5 kg/m2 Dr. Aleena London Work Phone: [facility] Work Phone: 12-14-2021 10:42-0400 Body weight 105.[address] Aleena London Work Phone: [facility] Work Phone: 12-14-2021 10:42-0400 Diastolic blood pressure 88 mm[Hg] Dr. Aleena London Work Phone: [facility] Work Phone: 12-14-2021 10:42-0400 Systolic blood pressure 120 mm[Hg] Dr. Aleena London Work Phone: [facility] Work Phone: 11-27-2021 03:46-0400 Diastolic blood pressure 75 mm[Hg] Dr. Aleena London Work Phone: [facility] Work Phone: 11-27-2021 03:46-0400 Heart rate 70 /min Dr. Aleena London Work Phone: [facility] Work Phone: 11-27-2021 03:46-0400 Respiratory rate 15 /min Dr. Aleena London Work Phone: [facility] Work Phone: 11-27-2021 03:46-0400 Systolic blood pressure 125 mm[Hg] Dr. Aleena London Work Phone: [facility] Work Phone: 11-27-2021 01:16-0400 Body height 167.[address] Aleena London Work Phone: [facility] Work Phone: 11-27-2021 01:16-0400 Body mass index (BMI) [Ratio] 38.6 kg/m2 Dr. Aleena London Work Phone: [facility] Work Phone: 11-27-2021 01:16-0400 Body temperature 98.3 [degF] Dr. Aleena London Work Phone: [facility] Work Phone: 11-27-2021 01:16-0400 Body weight 108.[address] Aleena London Work Phone: [facility] Work Phone: 11-27-2021 01:16-0400 SaO2% (BldA) [Mass fraction] 99 % Dr. Aleena London Work Phone: [facility] Work Phone: 11-18-2021 15:03-0400 Body mass index (BMI) [Ratio] 37.8 kg/m2 Dr. Aleena London Work Phone: [facility] Work Phone: 11-18-2021 15:03-0400 Body temperature 98.9 [degF] Dr. Aleena London Work Phone: [facility] Work Phone: 11-18-2021 15:03-0400 Body weight 106.[address] Aleena London Work Phone: [facility] Work Phone: 11-18-2021 15:03-0400 Diastolic blood pressure 78 mm[Hg] Dr. Aleena London Work Phone: [facility] Work Phone: 11-18-2021 15:03-0400 Heart rate 83 /min Dr. Aleena London Work Phone: [facility] Work Phone: 11-18-2021 15:03-0400 Respiratory rate 16 /min Dr. Aleena London Work Phone: [facility] Work Phone: 11-18-2021 15:03-0400 SaO2% (BldA) [Mass fraction] 98 % Dr. Aleena London Work Phone: [facility] Work Phone: 11-18-2021 15:03-0400 Systolic blood pressure 126 mm[Hg] Dr. Aleena London Work Phone: [facility] Work Phone: 11-18-2021 09:43-0400 Body mass index (BMI) [Ratio] 37.6 kg/m2 Dr. Aleena London Work Phone: [facility] Work Phone: 11-18-2021 09:43-0400 Body temperature 98.7 [degF] Dr. Aleena London Work Phone: [facility] Work Phone: 11-18-2021 09:43-0400 Body weight 105.[address] Aleena London Work Phone: [facility] Work Phone: 11-18-2021 09:43-0400 Diastolic blood pressure 76 mm[Hg] Dr. Aleena London Work Phone: [facility] Work Phone: 11-18-2021 09:43-0400 Heart rate 81 /min Dr. Aleena London Work Phone: [facility] Work Phone: 11-18-2021 09:43-0400 Respiratory rate 16 /min Dr. Aleena London Work Phone: [facility] Work Phone: 11-18-2021 09:43-0400 SaO2% (BldA) [Mass fraction] 98 % Dr. Aleena London Work Phone: [facility] Work Phone: 11-18-2021 09:43-0400 Systolic blood pressure 118 mm[Hg] Dr. Aleena London Work Phone: [facility] Work Phone: 11-01-2021 13:12-0400 Body mass index (BMI) [Ratio] 38.2 kg/m2 Dr. Aleena London Work Phone: [facility] Work Phone: 11-01-2021 13:12-0400 Body temperature 99 [degF] Dr. Aleena London Work Phone: [facility] Work Phone: 11-01-2021 13:12-0400 Body weight 107.[address] Aleena London Work Phone: [facility] Work Phone: 11-01-2021 13:12-0400 Diastolic blood pressure 72 mm[Hg] Dr. Aleena London Work Phone: [facility] Work Phone: 11-01-2021 13:12-0400 Heart rate 82 /min Dr. Aleena London Work Phone: [facility] Work Phone: 11-01-2021 13:12-0400 Respiratory rate 16 /min Dr. Aleena London Work Phone: [facility] Work Phone: 11-01-2021 13:12-0400 SaO2% (BldA) [Mass fraction] 98 % Dr. Aleena London Work Phone: [facility] Work Phone: 11-01-2021 13:12-0400 Systolic blood pressure 118 mm[Hg] Dr. Aleena London Work Phone: [facility] Work Phone: 10-29-2021 17:52-0400 Body temperature 100.1 [degF] Dr. Aleena London Work Phone: [facility] Work Phone: 10-29-2021 17:52-0400 Diastolic blood pressure 80 mm[Hg] Dr. Aleena London Work Phone: [facility] Work Phone: 10-29-2021 17:52-0400 Heart rate 105 /min Dr. Aleena London Work Phone: [facility] Work Phone: 10-29-2021 17:52-0400 Respiratory rate 15 /min Dr. Aleena London Work Phone: [facility] Work Phone: 10-29-2021 17:52-0400 SaO2% (BldA) [Mass fraction] 99 % Dr. Aleena London Work Phone: [facility] Work Phone: 10-29-2021 17:52-0400 Systolic blood pressure 150 mm[Hg] Dr. Aleena London Work Phone: [facility] Work Phone: 10-29-2021 17:52-0400 Body temperature 100.1 [degF] Dr. Aleena London Work Phone: [facility] Work Phone: 10-29-2021 17:52-0400 Diastolic blood pressure 80 mm[Hg] Dr. Aleena London Work Phone: [facility] Work Phone: 10-29-2021 17:52-0400 Heart rate 105 /min Dr. Aleena London Work Phone: [facility] Work Phone: 10-29-2021 17:52-0400 Respiratory rate 15 /min Dr. Aleena London Work Phone: [facility] Work Phone: 10-29-2021 17:52-0400 SaO2% (BldA) [Mass fraction] 99 % Dr. Aleena London Work Phone: [facility] Work Phone: 10-29-2021 17:52-0400 Systolic blood pressure 150 mm[Hg] Dr. Aleena London Work Phone: [facility] Work Phone: 10-15-2021 11:07-0400 Body mass index (BMI) [Ratio] 37.4 kg/m2 Dr. Aleena London Work Phone: [facility] Work Phone: 10-15-2021 11:07-0400 Body temperature 98.1 [degF] Dr. Aleena London Work Phone: [facility] Work Phone: 10-15-2021 11:07-0400 Body weight 105.[address] Aleena London Work Phone: [facility] Work Phone: 10-15-2021 11:07-0400 Diastolic blood pressure 74 mm[Hg] Dr. Aleena London Work Phone: [facility] Work Phone: 10-15-2021 11:07-0400 Heart rate 70 /min Dr. Aleena London Work Phone: [facility] Work Phone: 10-15-2021 11:07-0400 Respiratory rate 16 /min Dr. Aleena London Work Phone: [facility] Work Phone: 10-15-2021 11:07-0400 SaO2% (BldA) [Mass fraction] 98 % Dr. Aleena London Work Phone: [facility] Work Phone: 10-15-2021 11:07-0400 Systolic blood pressure 108 mm[Hg] Dr. Aleena London Work Phone: [facility] Work Phone: 10-15-2021 11:07-0400 Body height 167.[address] Aleena London Work Phone: [facility] Work Phone: 10-15-2021 11:07-0400 Body mass index (BMI) [Ratio] 37.4 kg/m2 Dr. Aleena London Work Phone: [facility] Work Phone: 10-15-2021 11:07-0400 Body temperature 98.1 [degF] Dr. Aleena London Work Phone: [facility] Work Phone: 10-15-2021 11:07-0400 Body weight 105.[address] Aleena London Work Phone: [facility] Work Phone: 10-15-2021 11:07-0400 Diastolic blood pressure 74 mm[Hg] Dr. Aleena London Work Phone: [facility] Work Phone: 10-15-2021 11:07-0400 Heart rate 70 /min Dr. Aleena London Work Phone: [facility] Work Phone: 10-15-2021 11:07-0400 Respiratory rate 16 /min Dr. Aleena London Work Phone: [facility] Work Phone: 10-15-2021 11:07-0400 SaO2% (BldA) [Mass fraction] 98 % Dr. Aleena London Work Phone: [facility] Work Phone: 10-15-2021 11:07-0400 Systolic blood pressure 108 mm[Hg] Dr. Aleena London Work Phone: [facility] Work Phone: 10-13-2021 09:05-0400 Body temperature 98.6 [degF] Dr. Aleena London Work Phone: [facility] Work Phone: 10-13-2021 09:05-0400 Diastolic blood pressure 78 mm[Hg] Dr. Aleena London Work Phone: [facility] Work Phone: 10-13-2021 09:05-0400 Heart rate 86 /min Dr. Aleena London Work Phone: [facility] Work Phone: 10-13-2021 09:05-0400 Respiratory rate 14 /min Dr. Aleena London Work Phone: [facility] Work Phone: 10-13-2021 09:05-0400 SaO2% (BldA) [Mass fraction] 97 % Dr. Aleena London Work Phone: [facility] Work Phone: 10-13-2021 09:05-0400 Systolic blood pressure 126 mm[Hg] Dr. Aleena London Work Phone: [facility] Work Phone: 10-13-2021 09:05-0400 Body temperature 98.6 [degF] Dr. Aleena London Work Phone: [facility] Work Phone: 10-13-2021 09:05-0400 Diastolic blood pressure 78 mm[Hg] Dr. Aleena London Work Phone: [facility] Work Phone: 10-13-2021 09:05-0400 Heart rate 86 /min Dr. Aleena London Work Phone: [facility] Work Phone: 10-13-2021 09:05-0400 Respiratory rate 14 /min Dr. Aleena London Work Phone: [facility] Work Phone: 10-13-2021 09:05-0400 SaO2% (BldA) [Mass fraction] 97 % Dr. Aleena London Work Phone: [facility] Work Phone: 10-13-2021 09:05-0400 Systolic blood pressure 126 mm[Hg] Dr. Aleena London Work Phone: [facility] Work Phone: 10-11-2021 10:37-0400 Body mass index (BMI) [Ratio] 37.5 kg/m2 Dr. Aleena London Work Phone: [facility] Work Phone: 10-11-2021 10:37-0400 Body weight 105.[address] Aleena London Work Phone: [facility] Work Phone: 10-11-2021 10:37-0400 Diastolic blood pressure 82 mm[Hg] Dr. Aleena London Work Phone: [facility] Work Phone: 10-11-2021 10:37-0400 Systolic blood pressure 122 mm[Hg] Dr. Aleena London Work Phone: [facility] Work Phone: 10-11-2021 10:37-0400 Body height 167.[address] Aleena London Work Phone: [facility] Work Phone: 10-11-2021 10:37-0400 Body mass index (BMI) [Ratio] 37.5 kg/m2 Dr. Aleena London Work Phone: [facility] Work Phone: 10-11-2021 10:37-0400 Body weight 105.[address] Aleena London Work Phone: [facility] Work Phone: 10-11-2021 10:37-0400 Diastolic blood pressure 82 mm[Hg] Dr. Aleena London Work Phone: [facility] Work Phone: 10-11-2021 10:37-0400 Systolic blood pressure 122 mm[Hg] Dr. Aleena London Work Phone: [facility] Work Phone: 09-27-2021 14:08-0400 Body mass index (BMI) [Ratio] 37.8 kg/m2 Dr. Aleena London Work Phone: [facility] Work Phone: 09-27-2021 14:08-0400 Body weight 106.[address] Aleena London Work Phone: [facility] Work Phone: 09-27-2021 14:08-0400 Diastolic blood pressure 78 mm[Hg] Dr. Aleena London Work Phone: [facility] Work Phone: 09-27-2021 14:08-0400 Heart rate 74 /min Dr. Aleena London Work Phone: [facility] Work Phone: 09-27-2021 14:08-0400 Respiratory rate 18 /min Dr. Aleena London Work Phone: [facility] Work Phone: 09-27-2021 14:08-0400 SaO2% (BldA) [Mass fraction] 98 % Dr. Aleena London Work Phone: [facility] Work Phone: 09-27-2021 14:08-0400 Systolic blood pressure 114 mm[Hg] Dr. Aleena London Work Phone: [facility] Work Phone: 09-27-2021 14:08-0400 Body mass index (BMI) [Ratio] 37.8 kg/m2 Dr. Aleena London Work Phone: [facility] Work Phone: 09-27-2021 14:08-0400 Body weight 106.[address] Aleena London Work Phone: [facility] Work Phone: 09-27-2021 14:08-0400 Diastolic blood pressure 78 mm[Hg] Dr. Aleena London Work Phone: [facility] Work Phone: 09-27-2021 14:08-0400 Heart rate 74 /min Dr. Aleena London Work Phone: [facility] Work Phone: 09-27-2021 14:08-0400 Respiratory rate 18 /min Dr. Aleena London Work Phone: [facility] Work Phone: 09-27-2021 14:08-0400 SaO2% (BldA) [Mass fraction] 98 % Dr. Aleena London Work Phone: [facility] Work Phone: 09-27-2021 14:08-0400 Systolic blood pressure 114 mm[Hg] Dr. Aleena London Work Phone: [facility] Work Phone: 09-22-2021 14:55-0400 Body mass index (BMI) [Ratio] 37.9 kg/m2 Dr. Aleena London Work Phone: [facility] Work Phone: 09-22-2021 14:55-0400 Body temperature 98.7 [degF] Dr. Aleena London Work Phone: [facility] Work Phone: 09-22-2021 14:55-0400 Body weight 106.[address] Aleena London Work Phone: [facility] Work Phone: 09-22-2021 14:55-0400 Diastolic blood pressure 82 mm[Hg] Dr. Aleena London Work Phone: [facility] Work Phone: 09-22-2021 14:55-0400 Heart rate 88 /min Dr. Aleena London Work Phone: [facility] Work Phone: 09-22-2021 14:55-0400 Respiratory rate 14 /min Dr. Aleena London Work Phone: [facility] Work Phone: 09-22-2021 14:55-0400 SaO2% (BldA) [Mass fraction] 99 % Dr. Aleena London Work Phone: [facility] Work Phone: 09-22-2021 14:55-0400 Systolic blood pressure 114 mm[Hg] Dr. Aleena London Work Phone: [facility] Work Phone: 09-22-2021 14:55-0400 Body height 167.[address] Aleena London Work Phone: [facility] Work Phone: 09-22-2021 14:55-0400 Body mass index (BMI) [Ratio] 37.9 kg/m2 Dr. Aleena London Work Phone: [facility] Work Phone: 09-22-2021 14:55-0400 Body temperature 98.7 [degF] Dr. Aleena London Work Phone: [facility] Work Phone: 09-22-2021 14:55-0400 Body weight 106.[address] Aleena London Work Phone: [facility] Work Phone: 09-22-2021 14:55-0400 Diastolic blood pressure 82 mm[Hg] Dr. Aleena London Work Phone: [facility] Work Phone: 09-22-2021 14:55-0400 Heart rate 88 /min Dr. Aleena London Work Phone: [facility] Work Phone: 09-22-2021 14:55-0400 Respiratory rate 14 /min Dr. Aleena London Work Phone: [facility] Work Phone: 09-22-2021 14:55-0400 SaO2% (BldA) [Mass fraction] 99 % Dr. Aleena London Work Phone: [facility] Work Phone: 09-22-2021 14:55-0400 Systolic blood pressure 114 mm[Hg] Dr. Aleena London Work Phone: [facility] Work Phone: 09-15-2021 08:29-0400 Body mass index (BMI) [Ratio] 37.9 kg/m2 Dr. Aleena London Work Phone: [facility] Work Phone: 09-15-2021 08:29-0400 Body weight 106.[address] Aleena London Work Phone: [facility] Work Phone: 09-15-2021 08:29-0400 Diastolic blood pressure 82 mm[Hg] Dr. Aleena London Work Phone: [facility] Work Phone: 09-15-2021 08:29-0400 Heart rate 87 /min Dr. Aleena London Work Phone: [facility] Work Phone: 09-15-2021 08:29-0400 SaO2% (BldA) [Mass fraction] 98 % Dr. Aleena London Work Phone: [facility] Work Phone: 09-15-2021 08:29-0400 Systolic blood pressure 117 mm[Hg] Dr. Aleena London Work Phone: [facility] Work Phone: 09-15-2021 08:29-0400 Body mass index (BMI) [Ratio] 37.9 kg/m2 Dr. Aleena London Work Phone: [facility] Work Phone: 09-15-2021 08:29-0400 Body weight 106.[address] Aleena London Work Phone: [facility] Work Phone: 09-15-2021 08:29-0400 Diastolic blood pressure 82 mm[Hg] Dr. Aleena London Work Phone: [facility] Work Phone: 09-15-2021 08:29-0400 Heart rate 87 /min Dr. Aleena London Work Phone: [facility] Work Phone: 09-15-2021 08:29-0400 SaO2% (BldA) [Mass fraction] 98 % Dr. Aleena London Work Phone: [facility] Work Phone: 09-15-2021 08:29-0400 Systolic blood pressure 117 mm[Hg] Dr. Aleena London Work Phone: [facility] Work Phone: 09-09-2021 09:58-0400 Body mass index (BMI) [Ratio] 37.9 kg/m2 Dr. Aleena London Work Phone: [facility] Work Phone: 09-09-2021 09:58-0400 Body weight 106.[address] Aleena London Work Phone: [facility] Work Phone: 09-09-2021 09:58-0400 Diastolic blood pressure 79 mm[Hg] Dr. Aleena London Work Phone: [facility] Work Phone: 09-09-2021 09:58-0400 Systolic blood pressure 120 mm[Hg] Dr. Aleena London Work Phone: [facility] Work Phone: 09-09-2021 09:58-0400 Body mass index (BMI) [Ratio] 37.9 kg/m2 Dr. Aleena London Work Phone: [facility] Work Phone: 09-09-2021 09:58-0400 Body weight 106.[address] Aleena London Work Phone: [facility] Work Phone: 09-09-2021 09:58-0400 Diastolic blood pressure 79 mm[Hg] Dr. Aleena London Work Phone: [facility] Work Phone: 09-09-2021 09:58-0400 Systolic blood pressure 120 mm[Hg] Dr. Aleena London Work Phone: [facility] Work Phone: 09-07-2021 11:24-0400 Body temperature 98.2 [degF] Dr. Aleena London Work Phone: [facility] Work Phone: 09-07-2021 11:24-0400 Diastolic blood pressure 86 mm[Hg] Dr. Aleena London Work Phone: [facility] Work Phone: 09-07-2021 11:24-0400 Heart rate 109 /min Dr. Aleena London Work Phone: [facility] Work Phone: 09-07-2021 11:24-0400 Respiratory rate 16 /min Dr. Aleena London Work Phone: [facility] Work Phone: 09-07-2021 11:24-0400 SaO2% (BldA) [Mass fraction] 99 % Dr. Aleena London Work Phone: [facility] Work Phone: 09-07-2021 11:24-0400 Systolic blood pressure 132 mm[Hg] Dr. Aleena London Work Phone: [facility] Work Phone: 09-07-2021 11:24-0400 Body temperature 98.2 [degF] Dr. Aleena London Work Phone: [facility] Work Phone: 09-07-2021 11:24-0400 Diastolic blood pressure 86 mm[Hg] Dr. Aleena London Work Phone: [facility] Work Phone: 09-07-2021 11:24-0400 Heart rate 109 /min Dr. Aleena London Work Phone: [facility] Work Phone: 09-07-2021 11:24-0400 Respiratory rate 16 /min Dr. Aleena London Work Phone: [facility] Work Phone: 09-07-2021 11:24-0400 SaO2% (BldA) [Mass fraction] 99 % Dr. Aleena London Work Phone: [facility] Work Phone: 09-07-2021 11:24-0400 Systolic blood pressure 132 mm[Hg] Dr. Aleena London Work Phone: [facility] Work Phone: 08-25-2021 22:48-0400 Diastolic blood pressure 83 mm[Hg] Dr. Aleena London Work Phone: [facility] Work Phone: 08-25-2021 22:48-0400 Heart rate 98 /min Dr. Aleena London Work Phone: [facility] Work Phone: 08-25-2021 22:48-0400 SaO2% (BldA) [Mass fraction] 77 % Dr. Aleena London Work Phone: [facility] Work Phone: 08-25-2021 22:48-0400 Systolic blood pressure 114 mm[Hg] Dr. Aleena London Work Phone: [facility] Work Phone: 08-25-2021 22:11-0400 Body temperature 98.2 [degF] Dr. Aleena London Work Phone: [facility] Work Phone: 08-25-2021 22:01-0400 Body height 167.[address] Aleena London Work Phone: [facility] Work Phone: 08-25-2021 22:01-0400 Body mass index (BMI) [Ratio] 38 kg/m2 Dr. Aleena London Work Phone: [facility] Work Phone: 08-25-2021 22:01-0400 Body weight 107.[address] Aleena London Work Phone: [facility] Work Phone: 08-25-2021 22:01-0400 Respiratory rate 16 /min Dr. Aleena London Work Phone: [facility] Work Phone: 08-20-2021 18:00-0400 Body temperature 98.4 [degF] Dr. Aleena London Work Phone: [facility] Work Phone: 08-20-2021 18:00-0400 Diastolic blood pressure 80 mm[Hg] Dr. Aleena London Work Phone: [facility] Work Phone: 08-20-2021 18:00-0400 Heart rate 80 /min Dr. Aleena London Work Phone: [facility] Work Phone: 08-20-2021 18:00-0400 Respiratory rate 16 /min Dr. Aleena London Work Phone: [facility] Work Phone: 08-20-2021 18:00-0400 SaO2% (BldA) [Mass fraction] 100 % Dr. Aleena London Work Phone: [facility] Work Phone: 08-20-2021 18:00-0400 Systolic blood pressure 142 mm[Hg] Dr. Aleena London Work Phone: [facility] Work Phone: 08-20-2021 15:33-0400 Body height 167.[address] Aleena London Work Phone: [facility] Work Phone: 08-20-2021 15:33-0400 Body mass index (BMI) [Ratio] 38 kg/m2 Dr. Aleena London Work Phone: [facility] Work Phone: 08-20-2021 15:33-0400 Body weight 106.[address] Aleena London Work Phone: [facility] Work Phone: 08-11-2021 15:29-0400 Diastolic blood pressure 80 mm[Hg] Dr. Aleena London Work Phone: [facility] Work Phone: 08-11-2021 15:29-0400 Heart rate 90 /min Dr. Aleena London Work Phone: [facility] Work Phone: 08-11-2021 15:29-0400 Systolic blood pressure 120 mm[Hg] Dr. Aleena London Work Phone: [facility] Work Phone: 08-11-2021 15:29-0400 Diastolic blood pressure 80 mm[Hg] Dr. Aleena London Work Phone: [facility] Work Phone: 08-11-2021 15:29-0400 Heart rate 90 /min Dr. Aleena London Work Phone: [facility] Work Phone: 08-11-2021 15:29-0400 Systolic blood pressure 120 mm[Hg] Dr. Aleena London Work Phone: [facility] Work Phone: 08-11-2021 15:26-0400 Body mass index (BMI) [Ratio] 38.5 kg/m2 Dr. Aleena London Work Phone: [facility] Work Phone: 08-11-2021 15:26-0400 Body temperature 97.6 [degF] Dr. Aleena London Work Phone: [facility] Work Phone: 08-11-2021 15:26-0400 Body weight 108.[address] Aleena London Work Phone: [facility] Work Phone: 08-11-2021 15:26-0400 SaO2% (BldA) [Mass fraction] 98 % Dr. Aleena London Work Phone: [facility] Work Phone: 08-11-2021 15:26-0400 Body mass index (BMI) [Ratio] 38.5 kg/m2 Dr. Aleena London Work Phone: [facility] Work Phone: 08-11-2021 15:26-0400 Body temperature 97.6 [degF] Dr. Aleena London Work Phone: [facility] Work Phone: 08-11-2021 15:26-0400 Body weight 108.[address] Aleena London Work Phone: [facility] Work Phone: 08-11-2021 15:26-0400 SaO2% (BldA) [Mass fraction] 98 % Dr. Aleena London Work Phone: [facility] Work Phone: 08-09-2021 11:09-0400 Body mass index (BMI) [Ratio] 38.5 kg/m2 Dr. Aleena London Work Phone: [facility] Work Phone: 08-09-2021 11:09-0400 Body weight 108.[address] Aleena London Work Phone: [facility] Work Phone: 08-09-2021 11:09-0400 Diastolic blood pressure 78 mm[Hg] Dr. Aleena London Work Phone: [facility] Work Phone: 08-09-2021 11:09-0400 Systolic blood pressure 110 mm[Hg] Dr. Aleena London Work Phone: [facility] Work Phone: 08-09-2021 11:09-0400 Body mass index (BMI) [Ratio] 38.5 kg/m2 Dr. Aleena London Work Phone: [facility] Work Phone: 08-09-2021 11:09-0400 Body weight 108.[address] Aleena London Work Phone: [facility] Work Phone: 08-09-2021 11:09-0400 Diastolic blood pressure 78 mm[Hg] Dr. Aleena London Work Phone: [facility] Work Phone: 08-09-2021 11:09-0400 Systolic blood pressure 110 mm[Hg] Dr. Aleena London Work Phone: [facility] Work Phone: 07-15-2021 09:03-0500 Body mass index (BMI) [Ratio] 38.2 kg/m2 Dr. Aleena London Work Phone: [facility] Work Phone: 07-15-2021 09:03-0500 Body weight 107.[address] Aleena London Work Phone: [facility] Work Phone: 07-15-2021 09:03-0500 Diastolic blood pressure 88 mm[Hg] Dr. Aleena London Work Phone: [facility] Work Phone: 07-15-2021 09:03-0500 Heart rate 76 /min Dr. Aleena London Work Phone: [facility] Work Phone: 07-15-2021 09:03-0500 Respiratory rate 16 /min Dr. Aleena London Work Phone: [facility] Work Phone: 07-15-2021 09:03-0500 Systolic blood pressure 120 mm[Hg] Dr. Aleena London Work Phone: [facility] Work Phone: 06-29-2021 10:05-0500 Body mass index (BMI) [Ratio] 39.1 kg/m2 Dr. Aleena London Work Phone: [facility] Work Phone: 06-29-2021 10:05-0500 Body weight 109.[address] Aleena London Work Phone: [facility] Work Phone: 06-29-2021 10:05-0500 Diastolic blood pressure 74 mm[Hg] Dr. Aleena London Work Phone: [facility] Work Phone: 06-29-2021 10:05-0500 Heart rate 91 /min Dr. Aleena London Work Phone: [facility] Work Phone: 06-29-2021 10:05-0500 Respiratory rate 18 /min Dr. Aleena London Work Phone: [facility] Work Phone: 06-29-2021 10:05-0500 SaO2% (BldA) [Mass fraction] 96 % Dr. Aleena London Work Phone: [facility] Work Phone: 06-29-2021 10:05-0500 Systolic blood pressure 115 mm[Hg] Dr. Aleena London Work Phone: [facility] Work Phone: 06-28-2021 12:11-0500 Body temperature 97.4 [degF] Dr. Aleena London Work Phone: [facility] Work Phone: 06-28-2021 12:11-0500 Body weight 109.[address] Aleena London Work Phone: [facility] Work Phone: 06-28-2021 12:11-0500 Diastolic blood pressure 78 mm[Hg] Dr. Aleena London Work Phone: [facility] Work Phone: 06-28-2021 12:11-0500 Heart rate 98 /min Dr. Aleena London Work Phone: [facility] Work Phone: 06-28-2021 12:11-0500 Respiratory rate 16 /min Dr. Aleena London Work Phone: [facility] Work Phone: 06-28-2021 12:11-0500 SaO2% (BldA) [Mass fraction] 98 % Dr. Aleena London Work Phone: [facility] Work Phone: 06-28-2021 12:11-0500 Systolic blood pressure 140 mm[Hg] Dr. Aleena London Work Phone: [facility] Work Phone: 06-21-2021 19:21-0500 Heart rate 78 /min Dr. Aleena London Work Phone: [facility] Work Phone: 06-21-2021 19:21-0500 Respiratory rate 15 /min Dr. Aleena London Work Phone: [facility] Work Phone: 06-21-2021 19:21-0500 SaO2% (BldA) [Mass fraction] 99 % Dr. Aleena London Work Phone: [facility] Work Phone: 06-21-2021 15:48-0500 Body mass index (BMI) [Ratio] 39 kg/m2 Dr. Aleena London Work Phone: [facility] Work Phone: 06-21-2021 15:48-0500 Body temperature 96.8 [degF] Dr. Aleena London Work Phone: [facility] Work Phone: 06-21-2021 15:48-0500 Body weight 109.[address] Aleena London Work Phone: [facility] Work Phone: 06-21-2021 15:48-0500 Diastolic blood pressure 88 mm[Hg] Dr. Aleena London Work Phone: [facility] Work Phone: 06-21-2021 15:48-0500 Systolic blood pressure 132 mm[Hg] Dr. Aleena London Work Phone: [facility] Work Phone: 06-08-2021 08:36-0500 Body mass index (BMI) [Ratio] 39.2 kg/m2 Dr. Aleena London Work Phone: [facility] Work Phone: 06-08-2021 08:36-0500 Body temperature 99.8 [degF] Dr. Aleena London Work Phone: [facility] Work Phone: 06-08-2021 08:36-0500 Body weight 110.[address] Aleena London Work Phone: [facility] Work Phone: 06-08-2021 08:36-0500 Diastolic blood pressure 84 mm[Hg] Dr. Aleena London Work Phone: [facility] Work Phone: 06-08-2021 08:36-0500 Heart rate 85 /min Dr. Aleena London Work Phone: [facility] Work Phone: 06-08-2021 08:36-0500 Respiratory rate 16 /min Dr. Aleena London Work Phone: [facility] Work Phone: 06-08-2021 08:36-0500 SaO2% (BldA) [Mass fraction] 99 % Dr. Aleena London Work Phone: [facility] Work Phone: 06-08-2021 08:36-0500 Systolic blood pressure 140 mm[Hg] Dr. Aleena London Work Phone: [facility] Work Phone: 06-03-2021 07:14-0500 Body mass index (BMI) [Ratio] 38.9 kg/m2 Dr. Aleena London Work Phone: [facility] Work Phone: 06-03-2021 07:14-0500 Body temperature 98.2 [degF] Dr. Aleena London Work Phone: [facility] Work Phone: 06-03-2021 07:14-0500 Body weight 109.[address] Aleena London Work Phone: [facility] Work Phone: 06-03-2021 07:14-0500 Diastolic blood pressure 88 mm[Hg] Dr. Aleena London Work Phone: [facility] Work Phone: 06-03-2021 07:14-0500 Heart rate 83 /min Dr. Aleena London Work Phone: [facility] Work Phone: 06-03-2021 07:14-0500 Respiratory rate 14 /min Dr. Aleena London Work Phone: [facility] Work Phone: 06-03-2021 07:14-0500 SaO2% (BldA) [Mass fraction] 99 % Dr. Aleena London Work Phone: [facility] Work Phone: 06-03-2021 07:14-0500 Systolic blood pressure 146 mm[Hg] Dr. Aleena London Work Phone: [facility] Work Phone: 05-05-2021 09:43-0500 Body mass index (BMI) [Ratio] 38.9 kg/m2 Dr. Aleena London Work Phone: [facility] Work Phone: 05-05-2021 09:43-0500 Body temperature 98 [degF] Dr. Aleena London Work Phone: [facility] Work Phone: 05-05-2021 09:43-0500 Body weight 109.[address] Aleena London Work Phone: [facility] Work Phone: 05-05-2021 09:43-0500 Diastolic blood pressure 68 mm[Hg] Dr. Aleena London Work Phone: [facility] Work Phone: 05-05-2021 09:43-0500 Heart rate 72 /min Dr. Aleena London Work Phone: [facility] Work Phone: 05-05-2021 09:43-0500 Respiratory rate 16 /min Dr. Aleena London Work Phone: [facility] Work Phone: 05-05-2021 09:43-0500 SaO2% (BldA) [Mass fraction] 97 % Dr. Aleena London Work Phone: [facility] Work Phone: 05-05-2021 09:43-0500 Systolic blood pressure 110 mm[Hg] Dr. Aleena London Work Phone: [facility] Work Phone: 05-03-2021 08:06-0500 Body mass index (BMI) [Ratio] 38.7 kg/m2 Dr. Aleena London Work Phone: [facility] Work Phone: 05-03-2021 08:06-0500 Body temperature 98.7 [degF] Dr. Aleena London Work Phone: [facility] Work Phone: 05-03-2021 08:06-0500 Body weight 108.[address] Aleena London Work Phone: [facility] Work Phone: 05-03-2021 08:06-0500 Diastolic blood pressure 70 mm[Hg] Dr. Aleena London Work Phone: [facility] Work Phone: 05-03-2021 08:06-0500 Heart rate 92 /min Dr. Aleena London Work Phone: [facility] Work Phone: 05-03-2021 08:06-0500 Respiratory rate 16 /min Dr. Aleena London Work Phone: [facility] Work Phone: 05-03-2021 08:06-0500 SaO2% (BldA) [Mass fraction] 98 % Dr. Aleena London Work Phone: [facility] Work Phone: 05-03-2021 08:06-0500 Systolic blood pressure 106 mm[Hg] Dr. Aleena London Work Phone: [facility] Work Phone: 04-19-2017 11:55-0500 BMI (Body Mass Index) 38.51 kg/m2 Hanh Balderas NP [facility] 04-19-2017 11:55-0500 BP Diastolic 72 mm[Hg] Hanh Balderas NP [facility] 04-19-2017 11:55-0500 BP Systolic 113 mm[Hg] Hanh Balderas NP [facility] 04-19-2017 11:55-0500 Weight 108.23 kg Hanh Balderas NP [facility] 04-10-2017 05:19-0500 BMI (Body Mass Index) 38.73 kg/m2 Cassidy Moore MD [facility] 04-10-2017 05:19-0500 BP Diastolic 78 mm[Hg] Cassidy Moore MD [facility] 04-10-2017 05:19-0500 BP Systolic 123 mm[Hg] Cassiyd Moore MD [facility] 04-10-2017 05:19-0500 Weight 108.86 kg Cassidy Moore MD [facility] 03-13-2017 09:06-0400 BMI (Body Mass Index) 38.83 kg/m2 Hanh Balderas NP [facility] 03-13-2017 09:06-0400 BP Diastolic 77 mm[Hg] Hanh Balderas NP [facility] 03-13-2017 09:06-0400 BP Systolic 122 mm[Hg] Hanh Balderas NP [facility] 03-13-2017 09:06-0400 Pulse (Heart Rate) 95 /min Hanh Balderas NP [facility] 03-13-2017 09:06-0400 Weight 109.14 kg Hanh Balderas NP [facility] 02-17-2017 06:51-0400 BMI (Body Mass Index) 38.41 kg/m2 Cassidy Moore MD [facility] 02-17-2017 06:51-0400 Body Temperature 98.4 [degF] Cassidy Moore MD [facility] 02-17-2017 06:51-0400 BP Diastolic 79 mm[Hg] Cassidy Moore MD [facility] 02-17-2017 06:51-0400 BP Systolic 113 mm[Hg] Cassidy Moore MD [facility] 02-17-2017 06:51-0400 Pulse (Heart Rate) 97 /min Cassidy Moore MD [facility] 02-17-2017 06:51-0400 Respiratory Rate 16 /min Cassidy Moore MD [facility] 02-17-2017 06:51-0400 Weight 107.96 kg Cassidy Moore MD [facility] 02-09-2017 11:21-0400 BMI (Body Mass Index) 38.51 kg/m2 Cassidy Moore MD [facility] 02-09-2017 11:21-0400 Body Temperature 98.5 [degF] Cassidy Moore MD [facility] 02-09-2017 11:21-0400 BP Diastolic 79 mm[Hg] Cassidy Moore MD [facility] 02-09-2017 11:21-0400 BP Systolic 122 mm[Hg] Cassidy Moore MD [facility] 02-09-2017 11:21-0400 Pulse (Heart Rate) 96 /min Cassidy Moore MD [facility] 02-09-2017 11:21-0400 Respiratory Rate 16 /min Cassidy Moore MD [facility] 02-09-2017 11:21-0400 Weight 108.23 kg Cassidy Moore MD [facility] 01-17-2017 13:53-0400 BMI (Body Mass Index) 38.64 kg/m2 Hanh Balderas NP [facility] 01-17-2017 13:53-0400 Body Temperature 98.2 [degF] Hanh Sherrie MONKEY TRAINER [facility] 01-17-2017 13:53-0400 BP Diastolic 85 mm[Hg] Hanh Sherrie MONKEY TRAINER [facility] 01-17-2017 13:53-0400 BP Systolic 127 mm[Hg] Hanh Balderas MONKEY TRAINER [facility] 01-17-2017 13:53-0400 Height 167.64 cm Hanh Balderas MONKEY TRAINER [facility] 01-17-2017 13:53-0400 Pulse (Heart Rate) 87 /min Hanh Balderas MONKEY TRAINER [facility] 01-17-2017 13:53-0400 Respiratory Rate 16 /min Hanh Balderas MONKEY TRAINER [facility] 01-17-2017 13:53-0400 Weight 108.59 kg Hanh Balderas MONKEY TRAINER [facility] 01-09-2017 15:06-0400 BMI (Body Mass Index) 38.6 kg/m2 Cassidy Moore MD [facility] 01-09-2017 15:06-0400 Body Temperature 98.2 [degF] Cassidy Moore MD [facility] 01-09-2017 15:06-0400 BP Diastolic 76 mm[Hg] Cassidy Moore MD [facility] 01-09-2017 15:06-0400 BP Systolic 119 mm[Hg] Cassidy Moore MD [facility] 01-09-2017 15:06-0400 Height 167.64 cm Cassidy Moore MD [facility] 01-09-2017 15:06-0400 Pulse (Heart Rate) 111 /min Cassidy Moore MD [facility] 01-09-2017 15:06-0400 Respiratory Rate 16 /min Cassidy Moore MD [facility] 01-09-2017 15:06-0400 Weight 108.5 kg Cassidy Moore MD [facility] Encounters Encounter Date Encounter Type Care Provider Facility Start: 06-04-2025 ambulatory Edmond Young Facility:[facility] Start: 03-27-2025 End: 03-27-2025 ambulatory Efewongbe Oleghe Facility:[facility] Start: 03-25-2025 ambulatory Efewongbe Oleghe Facili ty:[facility] Start: 03-25-2025 ambulatory Efewongbe Oleghe Facili [facility] Start: 03-25-2025 End: 03-25-2025 ambulatory Efewongbe Oleghe Facility:[facility] Start: 03-19-2025 End: 03-19-2025 ambulatory Earnest Haynes Facility:[facility] Start: 03-17-2025 End: 03-17-2025 ambulatory Efewongbe Johnghe [facility] Start: 03-17-2025 End: 03-17-2025 ambulatory Greyson RUSH Facility:[facility] Start: 03-05-2025 End: 03-05-2025 ambulatory Efewongbe Johnghe Facility:[facility] Start: 03-03-2025 End: 03-03-2025 ambulatory Efewongbe Johnghe [facility] Start: 02-19-2025 ambulatory Efewongbe Oleghe Facili ty:[facility] Start: 02-18-2025 ambulatory Greg Enrique [facility] Start: 02-18-2025 End: 02-18-2025 ambulatory Greg Enrique Facility:[facility] Start: 02-13-2025 End: 02-13-2025 ambulatory Lisa Berkowitz [facility] Start: 02-13-2025 End: 02-13-2025 ambulatory Efromanongbe Johnghe Facility:[facility] Start: 02-12-2025 End: 02-13-2025 ambulatory Lisa Berkowitz Facility:[facility] Start: 02-11-2025 End: 02-11-2025 ambulatory Sigrid Ram [facility] Start: 02-06-2025 End: 02-06-2025 ambulatory Efewongbe Oleghe Facility:[facility] Start: 02-06-2025 End: 02-06-2025 ambulatory Antonio RUSH Facility:[facility] Start: 02-03-2025 ambulatory Greg Enrique [facility] Start: 02-03-2025 End: 02-03-2025 ambulatory Britany Nuñez Facility:[facility] Start: 01-30-2025 End: 01-30-2025 Emergency department patient visit Greg Melgar Facility:[facility] Start: 01-24-2025 End: 01-24-2025 ambulatory Efewongbe Oleghe Facility:[facility] Start: 01-22-2025 End: 01-22-2025 ambulatory Efewongbe Oleghe Facility:[facility] Start: 01-08-2025 End: 01-08-2025 ambulatory Efewongbe Oleghe [facility] Start: 01-06-2025 End: 01-06-2025 ambulatory Sigrid Leanna [facility] Start: 01-03-2025 End: 01-03-2025 ambulatory Sigrid Leanna Facility:[facility] Start: 12-20-2024 ambulatory Moreno Mostafa [facility] :[facility] Start: 12-20-2024 End: 12-20-2024 Emergency department patient visit Adele Aguila Facility:[facility] Start: 12-20-2024 End: 12-20-[facility] Start: 12-17-2024 ambulatory Greg Iva [facility] Start: 12-17-2024 End: 12-17-2024 ambulatory Juan J Lincoln Facility:[facility] Start: 12-17-2024 End: 12-17-2024 ambulatory Britany Nuñez Facility:[facility] Start: 12-12-2024 ambulatory Efewhaddon heightsbe Dimitrye Facili ty:[facility] Start: 11-19-2024 End: 11-19-[facility] Start: 11-14-2024 End: 11-14-2024 ambulatory Efewongbe Oleghe Facility:[facility] Start: 11-11-2024 End: 11-11-2024 ambulatory Sigrid Leanna [facility] Start: 11-08-2024 End: 11-08-2024 ambulatory Efewongbe Oleghe Facility:[facility] Start: 11-04-2024 End: 11-04-2024 Emergency department patient visit [facility] Start: 11-02-2024 End: 11-02-2024 Emergency department patient visit Efewongbe Oledignae Facility:[facility] Start: 11-01-2024 ambulatory Greg Enrique [facility] Start: 11-01-2024 End: 11-01-2024 ambulatory Britany Nuñez Facility:[facility] Start: 10-10-2024 ambulatory Efewongbe Oleghe Facili ty:[facility] Start: 10-09-2024 End: 10-09-2024 ambulatory Efewongbe Oleghe [facility] Start: 10-09-2024 End: 10-09-2024 ambulatory Efewhaddon heightsbe Olee Facility:[facility] Start: 10-06-2024 End: 10-06-2024 Emergency department patient visit Chuck MichaelKeo Facility:[facility] Start: 10-04-2024 End: 10-04-2024 Emergency department patient visit [facility] Start: 10-01-2024 End: 10-01-2024 ambulatory Efromanongbe Oledignae [facility] Start: 09-27-2024 ambulatory Efewongbe Oleghe Facili ty:[facility] Start: 09-25-2024 Encounter for gynecological examination (general) (routine) with abnormal findings Hanh Balderas NP [facility] Start: 09-25-2024 End: 09-25-2024 ambulatory Efromanongbe Oledignae [facility] Start: 09-24-2024 End: 09-25-2024 [facility] Start: 09-24-2024 End: 09-24-2024 ambulatory Efewongbe Oleghe Facility:[facility] Start: 09-19-2024 ambulatory Efewongbe Oleghe Facili ty:[facility] Start: 09-19-2024 End: 09-19-2024 ambulatory Efewongbe Oleghe Facility:[facility] Start: 09-17-2024 ambulatory Efewongbe Oleghe Facili ty:[facility] Start: 09-17-2024 End: 09-17-2024 ambulatory Efewongbe Oleghe Facility:[facility] Start: 09-11-2024 End: 09-11-2024 ambulatory Efewongbe Oleghe [facility] Start: 09-04-2024 ambulatory Efewongbe Oleghe Facili ty:[facility] Start: 09-03-2024 End: 09-04-2024 ambulatory Efromanongbe Dimitrye Facility:[facility] Start: 09-03-2024 End: 09-03-2024 ambulatory Efromanongbe Oledignae Facility:[facility] Start: 08-29-2024 End: 08-29-2024 Emergency department patient visit Brauliohaddon heightsyasmin Moraese Facility:[facility] Start: 08-27-2024 ambulatory Efromanongbe Oleghe Facili [facility] Start: 08-27-2024 End: 08-27-2024 ambulatory Efromanongbe Dimitrye Facility:[facility] Start: 08-21-2024 ambulatory Efewongbe Oleghe Facili [facility] Start: 08-21-2024 End: 08-21-2024 ambulatory Efromanhaddon heightsyasmin Moraese Facility:[facility] Start: 08-20-2024 End: 08-20-2024 Emergency department patient visit [facility] Start: 08-17-2024 ambulatory Efromanongbe Oleghe Facili ty:[facility] Start: 08-14-2024 End: 08-14-2024 ambulatory Braulioongyasmin Moraese [facility] Start: 08-12-2024 ambulatory Efewongbe Oleghe Facili ty:[facility] Start: 08-09-2024 End: 08-09-2024 ambulatory Efromanongbe Dimitrye [facility] Start: 08-02-2024 End: 08-02-2024 ambulatory Efromanongbe Oledignae Facility:[facility] Start: 07-25-2024 ambulatory Efewongbe Oleghe Facili ty[facility] Start: 07-25-2024 End: 07-25-2024 [facility] Start: 07-09-2024 ambulatory Efewongbe Oleghe Facili ty:[facility] Start: 07-05-2024 ambulatory Efewongbe Oleghe Facili ty:[facility] Start: 07-01-2024 ambulatory Efewongbe Oleghe Facili [facility] Start: 07-01-2024 End: 07-01-20[facility] Start: 06-28-2024 End: 06-28-2024 Emergency department patient visit [facility] Facility:[facility] Start: 06-21-2024 End: 06-25-2024 [facility] Start: 06-21-2024 End: 06-21-2024 Office outpatient new 45 minutes Tomasz Db DPM Work Phone: [facility] Comment on above: Plantar fasciitis (P rimary Dx) Start: 06-21-2024 End: 06-21-2024 ambulatory [facility] Start: 06-18-2024 End: 06-18-2024 Emergency department patient visit [facility] Facility:[facility] Start: 06-17-2024 End: 06-17-2024 Emergency department patient visit [facility] Facility:[facility] Start: 06-16-2024 End: 06-16-2024 Emergency department patient visit ADAN MOONEY [facility] Start: 06-13-2024 End: 06-13-2024 Emergency department patient visit ANDRIA CADE [facility] Start: 06-12-2024 ambulatory Efromanongbe Dimitrye Facili ty:[facility] Start: 06-11-2024 End: 06-11-2024 ambulatory [facility] Start: 06-10-2024 ambulatory Efromanongyasmin Moraese Facili ty:[facility] Start: 06-05-2024 End: 06-05-2024 Emergency department patient visit ULICES BALDERAS [facility] Start: 06-04-2024 End: 06-04-2024 ambulatory [facility] Facility:[facility] Start: 05-29-2024 End: 05-29-2024 ambulatory [facility] Facility:[facility] Start: 05-28-2024 End: 05-28-2024 Emergency department patient visit ARNOLDO CORCORAN [facility] Start: 05-27-2024 ambulatory Efewongbe Oleghe Facili [facility] Start: 05-27-2024 End: 05-27-2024 ambulatory Efewongbe Oleghe Facility:[facility] Start: 05-20-2024 End: 05-21-2024 Emergency department patient visit Aleena Moraese Facility:[facility] Start: 05-18-2024 ambulatory Efewongbe Oleghe Facili ty:[facility] Start: 05-15-2024 End: 05-15-2024 Emergency department patient visit Aleena Moraese Facility:[facility] Start: 05-09-2024 End: 05-10-2024 ambulatory Cassidy Moore Facility:[facility] Start: 05-09-2024 End: 05-09-2024 Emergency department patient visit LIBERTAD FOSTER [facility] Start: 05-06-2024 End: 05-06-2024 Emergency department patient visit Augie Paulinorus Facility:[facility] Start: 05-03-2024 End: 05-03-2024 ambulatory Efewongbe Oleghe [facility] Start: 05-01-2024 End: 05-01-2024 ambulatory Efewhaddon heightsbe Oleghe Facility:[facility] Start: 04-25-2024 ambulatory Efewongbe Oleghe Facili [facility] Start: 04-25-2024 End: 04-25-2024 ambulatory Efewhaddon heightsbe Oleghe Facility:[facility] Start: 04-23-2024 End: 04-23-2024 Emergency department patient visit Braulioongyasmin Moraese Facility:[facility] Start: 04-23-2024 End: 04-23-2024 ambulatory Efewongbe Oleghe Facility:[facility] Start: 04-16-2024 End: 04-16-2024 ambulatory Efewongbe Oleghe [facility] Start: 04-15-2024 End: 04-15-2024 Emergency department patient visit KAYLA TIJERINA [facility] Start: 04-09-2024 ambulatory Efewongbe Oleghe [facility]ili [facility] Start: 04-09-2024 End: 04-09-2024 ambulatory Efewongbe Oleghe Facility:[facility] Start: 04-08-2024 End: 04-08-2024 Emergency department patient visit Aleena London Facility:[facility] Start: 04-01-2024 End: 04-01-2024 Emergency department patient visit RADHA GALLEGOS [facility] Start: 03-17-2024 End: 03-17-2024 Emergency department patient visit COREY PRETTY [facility] Start: 03-11-2024 End: 03-11-2024 Emergency department patient visit RADHA GALLEGOS [facility] Start: 03-07-2024 End: 03-07-2024 Emergency department patient visit LIBERTAD CLARK FOSTER [facility] Start: 03-04-2024 End: 03-04-2024 Emergency department patient visit ADAN MOONEY [facility] Start: 02-23-2024 End: 02-23-2024 Emergency department patient visit EBENEZER CHAMPION [facility] Start: 02-20-2024 End: 02-20-2024 Emergency department patient visit GARCIASHANE MAKI [facility] Start: 02-14-2024 End: 02-14-2024 Emergency department patient visit LIBERTAD CLARK FOSTER [facility] Start: 02-11-2024 End: 02-11-2024 Emergency department patient visit BELKYS AVILA [facility] Start: 01-29-2024 End: 01-29-2024 [facility] Start: 01-16-2024 End: 01-16-2024 Emergency department patient visit NIKKI MILLER [facility] Start: 01-07-2024 End: 01-07-2024 Emergency department patient visit ANDRIA CADE [facility] Start: 12-01-2023 End: 12-01-2023 Emergency department patient visit BELKYS AVILA [facility] Start: 11-25-2023 End: 11-25-2023 Emergency department patient visit LIBERTAD CLARK FOSTER [facility] Start: 11-20-2023 Orders Only Patrick perez Work Phone: [facility] [place] Comment on above: Pain (Primary Dx) Start: 09-29-2023 End: 09-29-2023 Emergency department patient visit Dr. Aleena London Work Phone: [facility] Work Phone: Start: 09-29-2023 End: 09-29-2023 Dr. Aleena London Work Phone: [facility]-Emergency Department Work Phone: Start: 09-29-2023 Dr. Aleena London Work Phone: [facility]-Outpatient Breast Imaging Work Phone: Start: 09-21-2023 End: 09-21-[address] Aleena London Work Phone: [facility] Work Phone: Start: 09-21-2023 End: 09-21-2023 Dr. Aleena London Work Phone: [facility]-Laboratory, Specimen Work Phone: Start: 09-14-2023 End: 09-14-2023 Dr. Aleena London Work Phone: [facility] Internal Medicine Work Phone: Start: 09-14-2023 End: 09-14-2023 Dr. Aleena London Work Phone: [facility] Work Phone: Start: 09-11-2023 End: 09-11-2023 Dr. Aleena London Work Phone: [facility] Internal Medicine Work Phone: Start: 09-05-2023 End: 09-05-[address] Aleena London Work Phone: [facility] Work Phone: Start: 09-05-2023 End: 09-05-2023 Dr. Aleena London Work Phone: [facility] Women's Care Work Phone: Start: 09-05-2023 End: 09-05-2023 Dr. Aleena London Work Phone: [facility] Gastroenterology Work Phone: Start: 08-31-2023 End: 08-31-[address] Aleena London Work Phone: [facility] Work Phone: Start: 08-31-2023 End: 08-31-2023 Dr. Aleena London Work Phone: [facility]-Laboratory, Specimen Work Phone: Start: 08-30-2023 End: 08-30-2023 Dr. Aleena London Work Phone: [facility] Orthopaedic Specia Work Phone: Start: 08-18-2023 End: 08-18-2023 Dr. Aleena London Work Phone: [facility] Orthopaedic Specia Work Phone: Start: 08-16-2023 End: 08-16-2023 ambulatory Argelia Vasquez MD Work Phone: Gynecology Oncology Comment on above: NO SHOW (Primary Dx) Start: 08-16-2023 End: 08-16-2023 Patient encounter procedure Argelia Vasquez MD Work Phone: [facility] Start: 08-11-2023 End: 08-11-[address] Aleena London Work Phone: [facility] Work Phone: Start: 08-11-2023 End: 08-11-2023 Dr. Aleena London Work Phone: [facility]-MRI - [facility] Work Phone: Start: 07-25-2023 End: 07-26-2023 Dr. Aleean London Work Phone: [facility]-Emergency Department Work Phone: Start: 07-24-2023 End: 07-24-[address] Aleena London Work Phone: [facility] Work Phone: Start: 07-24-2023 End: 07-24-2023 Dr. Aleena London Work Phone: [facility] Work Phone: Start: 07-18-2023 End: 07-18-2023 Emergency department patient visit Dr. Aleena London Work Phone: [facility] Work Phone: Start: 07-18-2023 End: 07-18-2023 Dr. Aleena London Work Phone: [facility]-Emergency Department Work Phone: Start: 07-18-2023 End: 07-18-2023 Dr. Aleena London Work Phone: [facility] Women's [facility] Work Phone: Start: 07-13-2023 End: 07-13-2023 Dr. Aleena London Work Phone: [facility] Work Phone: Start: 07-06-2023 End: 07-06-2023 Dr. Aleena London Work Phone: [facility] Orthopaedic Specia Work Phone: Start: 07-04-2023 End: 07-04-2023 Dr. Aleena London Work Phone: [facility] Internal Medicine Work Phone: Start: 06-29-2023 End: 06-29-2023 Dr. Aleena London Work Phone: [facility]-Emergency Department Work Phone: Start: 05-16-2023 End: 05-16-[address] Aleena London Work Phone: [facility] Work Phone: Start: 05-16-2023 End: 05-16-2023 Dr. Aleena London Work Phone: [facility] Work Phone: Start: 05-04-2023 End: 05-04-2023 Emergency department patient visit Dr. Aleena London Work Phone: [facility] Work Phone: Start: 05-04-2023 End: 05-04-2023 Dr. Aleena London Work Phone: [facility]-Emergency Department Work Phone: Start: 05-03-2023 End: 05-03-[address] Aleena London Work Phone: [facility] Work Phone: Start: 05-03-2023 End: 05-03-2023 Dr. Aleena London Work Phone: [facility] Gastroenterology Work Phone: Start: 04-19-2023 End: 04-19-2023 Dr. Aleena London Work Phone: [facility] Internal Medicine Work Phone: Start: 04-17-2023 Dr. Aleena London Work Phone: [facility] Start: 04-17-2023 End: 04-17-2023 Emergency department patient visit Dr. Aleena London Work Phone: [facility] Work Phone: Start: 04-17-2023 End: 04-17-2023 Dr. Aleena London Work Phone: [facility]-Emergency Department Work Phone: Start: 04-12-2023 Telephone encounter Fatmata maher MD Work Phone: [facility] Comment on above: Referral Start: 04-11-2023 End: 04-11-[address] Aleena London Work Phone: [facility] Work Phone: Start: 04-11-2023 End: 04-11-2023 Dr. Aleena London Work Phone: [facility]-Outpatient Breast Imaging Work Phone: Start: 04-06-2023 End: 04-06-[address] Aleena London Work Phone: [facility] Work Phone: Start: 04-06-2023 End: 04-06-2023 Dr. Aleena London Work Phone: [facility] Work Phone: Start: 03-28-2023 End: 03-28-[address] Aleena London Work Phone: [facility] Work Phone: Start: 03-28-2023 End: 03-28-2023 Dr. Aleena London Work Phone: [facility]-Laboratory Work Phone: Start: 03-21-2023 End: 03-21-[address] Aleena London Work Phone: [facility] Work Phone: Start: 03-21-2023 End: 03-21-2023 Dr. Aleena London Work Phone: [facility]-Occupational Therapy Work Phone: Start: 03-16-2023 End: 03-16-2023 Dr. Aleena London Work Phone: [facility] Orthopaedic Specia Work Phone: Start: 03-09-2023 End: 03-09-[address] Aleena London Work Phone: [facility] Work Phone: Start: 03-09-2023 End: 03-09-2023 Dr. Aleena London Work Phone: [facility]-Outpatient Pavilion Ultrasound Work Phone: Start: 03-07-2023 End: 03-07-2023 Dr. Aleena London Work Phone: [facility] Work Phone: Start: 03-03-2023 End: 03-03-[address] Aleena London Work Phone: [facility] Work Phone: Start: 03-03-2023 End: 03-03-2023 Dr. Aleena London Work Phone: [facility]-Laboratory Work Phone: Start: 03-01-2023 End: 03-01-2023 Dr. Aleena London Work Phone: [facility] Orthopaedic Specia Work Phone: Start: 02-22-2023 End: 02-22-2023 Dr. Aleena London Work Phone: [facility] Orthopaedic Specia Work Phone: Start: 02-14-2023 End: 02-14-[address] Aleena London Work Phone: [facility] Work Phone: Start: 02-14-2023 End: 02-14-2023 Dr. Aleena London Work Phone: [facility]-Surgical Day Care Start: 02-13-2023 End: 02-13-2023 Dr. Aleena London Work Phone: [facility] Orthopaedic Specia Work Phone: Start: 02-10-2023 End: 02-10-2023 Dr. Aleena London Work Phone: [facility] Women's [facility] Work Phone: Start: 02-08-2023 End: 02-08-2023 Emergency department patient visit Dr. Aleena London Work Phone: [facility] Work Phone: Start: 02-08-2023 End: 02-08-2023 Dr. Aleena London Work Phone: [facility]-Emergency Department Work Phone: Start: 02-04-2023 End: 02-04-2023 Emergency department patient visit Dr. Aleena London Work Phone: [facility] Work Phone: Start: 02-04-2023 End: 02-04-2023 Dr. Aleena London Work Phone: [facility]-Emergency Department Work Phone: Start: 02-02-2023 Telephone encounter Nima Kaur MD Work Phone: [facility] [place] Comment on above: Patient Question Start: 01-16-2023 End: 01-16-2023 Dr. Aleena London Work Phone: [facility] Internal Medicine Work Phone: Start: 12-25-2022 End: 12-25-2022 Emergency department patient visit Dr. Aleena London Work Phone: [facility]-Emergency Department Work Phone: Start: 12-25-2022 End: 12-25-2022 Dr. Aleena London Work Phone: [facility]-Emergency Department Work Phone: Start: 12-15-2022 End: 12-15-[address] Aleena London Work Phone: [facility] Work Phone: Start: 12-15-2022 End: 12-15-[address] Aleena London Work Phone: [facility]-Laboratory, Specimen Work Phone: Start: 12-15-2022 End: 12-15-2022 Dr. Aleena London Work Phone: [facility]-Laboratory, Specimen Work Phone: Start: 12-15-2022 End: 12-15-[address] Aleena London Work Phone: [facility] Work Phone: Start: 12-15-2022 End: 12-15-2022 Dr. Aleena London Work Phone: [facility] Work Phone: Start: 12-08-2022 End: 12-08-[address] Aleena London Work Phone: [facility] Work Phone: Start: 12-08-2022 End: 12-08-2022 Dr. Aleena London Work Phone: [facility] Work Phone: Start: 12-06-2022 End: 12-06-[address] Aleena London Work Phone: [facility] Work Phone: Start: 12-06-2022 End: 12-06-2022 Dr. Aleena London Work Phone: [facility] Work Phone: Start: 11-30-2022 End: 11-30-[address] Aleena London Work Phone: [facility] Gastroenterology Work Phone: Start: 11-30-2022 End: 11-30-2022 Dr. Aleena London Work Phone: [facility] Gastroenterology Work Phone: Start: 11-28-2022 End: 11-28-[address] Aleena London Work Phone: [facility] Work Phone: Start: 11-28-2022 End: 11-28-[address] Aleena London Work Phone: [facility] Work Phone: Start: 11-28-2022 End: 11-28-2022 Dr. Aleena London Work Phone: [facility] Work Phone: Start: 11-25-2022 End: 11-25-[address] Aleena London Work Phone: [facility] Work Phone: Start: 11-25-2022 End: 11-25-[address] Aleena London Work Phone: [facility] Work Phone: Start: 11-25-2022 End: 11-25-2022 Dr. Aleena London Work Phone: [facility] Work Phone: Start: 11-19-2022 End: 11-20-2022 Emergency department patient visit Dr. Aleena London Work Phone: [facility] Work Phone: Start: 11-19-2022 End: 11-20-2022 Dr. Aleena London Work Phone: [facility]-Emergency Department Work Phone: Start: 11-18-2022 End: 11-18-[address] Aleena London Work Phone: [facility] Work Phone: Start: 11-18-2022 End: 11-18-2022 Dr. Aleena London Work Phone: [facility] Work Phone: Start: 11-16-2022 End: 11-16-2022 ambulatory LUKASZ EUBANKS Facility:[facility] Start: 11-16-2022 End: 11-16-2022 Office outpatient new 60 minutes Lukasz Eubanks MD Work Phone: [facility] Gynecology Oncology Comment on above: Pelvic pain in femal e (Primary Dx) Start: 11-08-2022 End: 11-08-2022 Emergency department patient visit Dr. Aleena London Work Phone: [facility] Work Phone: Start: 11-08-2022 End: 11-08-2022 Dr. Aleena London Work Phone: [facility]-Emergency Department Start: 10-24-2022 End: 10-24-[address] Aleena London Work Phone: [facility] Work Phone: Start: 10-24-2022 End: 10-24-2022 Dr. Aleena London Work Phone: [facility] Start: 10-11-2022 End: 10-12-2022 Emergency department patient visit ALEENA LONDON MD Facility:B Start: 10-07-2022 End: 10-07-[address] Aleena London Work Phone: [facility] Work Phone: Start: 10-07-2022 End: 10-07-[address] Aleena London Work Phone: [facility] Work Phone: Start: 10-07-2022 End: 10-07-2022 Dr. Aleena London Work Phone: [facility] Start: 09-20-2022 End: 09-20-[address] Aleena London Work Phone: [facility] Work Phone: Start: 09-20-2022 End: 09-20-2022 Dr. Aleena London Work Phone: [facility] Start: 09-02-2022 End: 09-02-[address] Aleena London Work Phone: [facility] Internal Medicine Work Phone: Start: 09-02-2022 End: 09-02-2022 Dr. Aleena London Work Phone: [facility] Medicine Start: 08-26-2022 Non-patient / Non-visit Dr. Aleena London Work Phone: [facility] Start: 08-26-2022 End: 08-26-2022 Emergency department [facility] Start: 08-26-2022 End: 08-26-2022 Dr. Aleena London Work Phone: [facility]Emergency Department Start: 08-22-2022 End: 08-22-[address] Aleena London Work Phone: [facility] Work Phone: Start: 08-22-2022 End: 08-22-2022 Dr. [facility] Start: 08-17-2022 End: 08-18-2022 Emergency department patient [facility] Dr[facility] Aleena London [facility] Start: 08-17-2022 End: 08-18-2022 Dr. Aleena London Work Phone: [facility]Emergency Department Start: 08-15-2022 End: 08-15-2022 Emergency department patient visit ALAN QUINN DO Facility:B Start: 08-15-2022 End: 08-15-2022 Emergency department patient visit ALAN QUINN DO [facility] Start: 08-08-2022 End: 08-08-[address] Aleena London Work Phone: [facility] Work Phone: Start: 08-08-2022 End: 08-08-2022 Dr. Aleena London Work Phone: [facility] Start: 07-25-2022 End: 07-25-[address] Aleena London Work Phone: [facility] Work Phone: Start: 07-25-2022 End: 07-25-2022 Dr. Aleena London Work Phone: [facility]-Ultrasound, [facility] Start: 07-17-2022 End: 07-17-2022 Emergency department patient visit Dr. Aleena London Work Phone: [facility] Work Phone: Start: 07-17-2022 End: 07-17-2022 Dr. Aleena London Work Phone: [facility]-Emergency Department Start: 07-14-2022 End: 07-14-[address] Aleena London Work Phone: [facility] Work Phone: Start: 07-14-2022 End: 07-14-2022 Dr. Aleena London Work Phone: [facility]-Laboratory Start: 07-13-2022 End: 07-13-[address] Aleena London Work Phone: [facility] Work Phone: Start: 07-13-2022 End: 07-13-2022 Dr. Aleena London Work Phone: [facility] Start: 07-04-2022 End: 07-05-2022 Emergency department patient visit Provider Pending Facility:[id number] Start: 06-29-2022 End: 06-29-2022 Dr. Aleena London Work Phone: [facility] Medicine Start: 06-23-2022 End: 06-24-2022 Emergency department patient visit EFEWONGBE LISE OLENannette [facility] Start: 06-22-2022 End: 06-22-[address] Aleena London Work Phone: [facility] Work Phone: Start: 06-22-2022 End: 06-22-2022 Dr. Aleena London Work Phone: [facility] Start: 06-10-2022 End: 06-10-2022 Emergency department patient visit Dr. Aleena London Work Phone: [facility] Work Phone: Start: 06-10-2022 End: 06-10-2022 Dr. Aleena London Work Phone: [facility]Emergency Department Start: 05-30-2022 End: 05-30-[address] Aleena Lonodn Work Phone: [facility] Work Phone: Start: 05-30-2022 End: 05-30-2022 Dr. Aleena London Work Phone: [facility] Start: 05-25-2022 End: 05-25-2022 Dr. Aleena London Work Phone: [facility] Start: 05-24-2022 End: 05-24-2022 Dr. [facility] Start: 05-22-2022 End: 05-23-2022 Emergency department patient visit Dr. Aleena London Work Phone: [facility]Emergency Department Start: 05-22-2022 End: 05-23-2022 Dr. Aleena London Work Phone: [facility]Emergency Department Start: 05-04-2022 End: 05-04-[address] Aleena London Work Phone: [facility] Start: 05-04-2022 End: 05-04-2022 Dr. Aleena London Work Phone: [facility] Start: 04-20-2022 End: 04-20-[address] Aleena London Work Phone: [facility] Start: 04-20-2022 End: 04-20-2022 Dr. Aleena London Work Phone: [facility] Start: 04-19-2022 Non-patient / Non-visit Dr. Aleena London Work Phone: [facility] Start: 04-19-2022 Dr. Aleena London Work Phone: [facility] Start: 04-18-2022 End: 04-18-2022 Emergency department patient visit Dr. Aleena London Work Phone: [facility]Emergency Department Start: 04-18-2022 End: 04-18-2022 Dr. Aleena London Work Phone: [facility]Emer[facility] Start: 04-16-2022 Non-patient / Non-visit Dr. Aleena London Work Phone: [facility] Start: 04-16-2022 Dr. Aleena London Work Phone: [facility] Start: 04-15-2022 End: 04-15-2022 Dr. Aleena London Work Phone: [facility] Start: 04-15-2022 Non-patient / Non-visit Dr. Aleena London Work Phone: [facility] Start: 04-15-2022 Dr. Aleena London Work Phone: [facility] Start: 04-14-2022 Non-patient / Non-visit Dr. Aleena London Work Phone: [facility] Start: 04-14-2022 Dr. Aleena London Work Phone: [facility] Start: 04-13-2022 Non-patient / Non-visit Dr. Aleena London Work Phone: [facility] Start: 04-13-2022 Dr. Aleena London Work Phone: [facility] Start: 04-12-2022 End: 04-16-2022 Evaluation and management of inpatient Dr. Aleena London Work Phone: [facility] 3 Start: 04-12-2022 End: 04-16-2022 Dr. Aleena London Work Phone: [facility] 3 Start: 04-05-2022 End: 04-05-[address] Aleena London Work Phone: [facility] Start: 04-05-2022 End: 04-05-2022 Dr. Aleena London Work Phone: [facility] Start: 03-30-2022 End: 03-30-[address] Aleena London Work Phone: [facility] Work Phone: Start: 03-30-2022 End: 03-30-[address] Aleena London Work Phone: [facility]-Laboratory, Specimen Start: 03-30-2022 End: 03-30-2022 Emergency department patient visit Dr. Aleena London Work Phone: [facility]Emergency Department Start: 03-30-2022 End: 03-30-2022 Dr. Aleena London Work Phone: [facility]Emer[facility] Start: 03-30-2022 End: 03-30-[address] Aleena London Work Phone: [facility] Start: 03-30-2022 End: 03-30-2022 Dr. Aleena London Work Phone: [facility] Start: 03-23-2022 Non-patient / Non-visit Dr. Aleena London Work Phone: [facility] Start: 03-23-2022 Dr. Aleena London Work Phone: [facility] Start: 03-22-2022 Non-patient / Non-visit Dr. Aleena London Work Phone: [facility] Start: 03-22-2022 Dr. Aleena London Work Phone: [facility] Start: 03-22-2022 End: 03-23-2022 Evaluation and management of inpatient [facility] Start: 03-22-2022 End: 03-23-2022 Dr. [facility] Start: 03-12-2022 End: 03-12-2022 Emergency department patient visit Dr. Aleena London Work Phone: [facility]Emergency Department Start: 03-12-2022 End: 03-12-2022 Dr. Aleena London Work Phone: [facility]Emer[facility] Start: 03-04-2022 End: 03-04-2022 Emergency department patient visit Dr. Aleena London Work Phone: [facility]Emer[facility] Start: 03-04-2022 End: 03-04-2022 Dr. Aleena London Work Phone: [facility]Emer[facility] Start: 03-02-2022 End: 03-02-[address] Aleena London Work Phone: [facility] Start: 03-02-2022 End: 03-02-2022 Dr. Aleena London Work Phone: [facility] Start: 03-02-2022 End: 03-04-2022 Non-patient / Non-visit Dr. Aleena London Work Phone: [facility] Start: 03-02-2022 End: 03-04-2022 Dr. Aleena London Work Phone: [facility] Start: 02-28-2022 End: 02-28-[address] Aleena London Work Phone: [facility] Start: 02-28-2022 End: 02-28-2022 Dr. Aleena London Work Phone: [facility] Start: 02-25-2022 End: 02-25-[address] Aleena London Work Phone: [facility] Start: 02-25-2022 End: 02-25-2022 Dr. Aelena London Work Phone: [facility] Start: 02-23-2022 End: 02-23-[address] Aleena London Work Phone: [facility] Work Phone: Start: 02-23-2022 End: 02-23-[address] Aleena London Work Phone: [facility]-Pulmonary Services/Neurology Start: 02-23-2022 End: 02-23-2022 Dr. [facility] Start: 02-23-2022 End: 02-23-[address] Aleena London Work Phone: [facility] Gastroenterology Start: 02-23-2022 End: 02-23-2022 Dr. Aleena London Work Phone: [facility] Start: 02-15-2022 End: 02-15-2022 Emergency department patient visit Dr. Aleena London Work Phone: [facility]Emergency Department Start: 02-15-2022 End: 02-15-2022 Dr. Aleena London Work Phone: [facility]Emergency Department Start: 02-15-2022 End: 02-15-[address] Aleena London Work Phone: [facility] Start: 02-15-2022 End: 02-15-2022 Dr. Alenea London Work Phone: [facility] Start: 02-10-2022 End: 02-10-[address] Aleena London Work Phone: [facility] Start: 02-10-2022 End: 02-10-2022 Dr. Aleena London Work Phone: [facility] Start: 02-08-2022 End: 02-08-[address] Aleena London Work Phone: [facility] Start: 01-13-2022 End: 01-13-[address] Aleena London Work Phone: [facility] Work Phone: Start: 01-13-2022 End: 01-13-[address] Aleena London Work Phone: [facility]-Laboratory Start: 01-11-2022 End: 01-11-[address] Aleena London Work Phone: [facility] Work Phone: Start: 01-11-2022 End: 01-11-[address] Aleena London Work Phone: [facility] Start: 01-03-2022 End: 01-03-[address] Aleena London Work Phone: [facility]-Laboratory Start: 12-30-2021 End: 12-30-[address] Aleena London Work Phone: [facility] Start: 12-23-2021 End: 12-24-2021 Emergency department patient visit Dr. Aleena London Work Phone: [facility]Emergency Department Start: 12-16-2021 End: 12-16-[address] Aleena London Work Phone: [facility] Start: 12-07-2021 End: 12-07-[address] Aleena London Work Phone: [facility] Start: 11-27-2021 End: 11-27-2021 Emergency department patient visit Dr. Aleena Leiva Phone: [facility]-Emergency Department Start: 11-18-2021 End: 11-18-[address] Aleena London Work Phone: [facility] Neurology Start: 11-18-2021 End: 11-18-[address] Aleena Leiva Phone: [facility] Medicine Start: 11-01-2021 End: 11-01-[address] Aleena Leiva Phone: [facility] Start: 10-29-2021 End: 10-29-[address] Aleena London Work Phone: [facility] Start: 10-26-2021 Non-patient / Non-visit Dr. Aleena Leiva Phone: [facility] Start: 10-26-2021 End: 10-26-[address] Aleena Leiva Phone: [facility]-Cardiovascular Services Start: 10-15-2021 End: 10-15-[address] Aleena London Work Phone: [facility] Start: 10-13-2021 End: 10-13-[address] Aleena Leiva Phone: [facility] Start: 10-11-2021 End: 10-11-[address] Aleena Leiva Phone: [facility]-Laboratory, Specimen Start: 10-11-2021 End: 10-11-[address] [facility] Leiva [facility] Start: 09-29-2021 End: 09-29-[address] Aleena Leiva Phone: [facility]-Physical Therapy Start: 09-27-2021 End: 09-27-[address] Aleena London Work Phone: [facility] Start: 09-23-2021 End: 09-23-[address] Aleena Leiva Phone: [facility] Start: 09-22-2021 End: 09-22-[address] Aleena Leiva Phone: [facility] Start: 09-15-2021 End: 09-15-[address] Aleena Leiva Phone: [facility] G[facility]enter[facility] Start: 09-09-2021 End: 09-09-[address] Aleena Leiva Phone[facility] Start: 09-07-2021 End: 09-07-[address] Aleena London Work Phone: [facility] Start: 08-25-2021 End: 08-25-2021 Emergency department patient visit Dr. Aleena Leiva Phone: [facility]Emergency Department Start: 08-20-2021 End: 08-20-2021 Emergency department patient visit Dr. Aleena Leiva Phone: [facility]Emergency Department Start: 08-11-2021 End: 08-11-[address] Aleena Leiva Phone: [facility] Start: 08-11-2021 End: 08-11-[address] Aleena London Work Phone: [facility] Start: 08-09-2021 End: 08-09-[address] Aleena London Work Phone: [facility] Start: 07-29-[address] Jorge London Work Phone: [facility]-Physical Therapy Start: 07-26-2021 End: 07-26-[address] Aleena London Work Phone: [facility]-Cardiovascular Services Start: 07-25-[address] Lindy [facility] Start: 07-16-2021 End: 07-16-[address] Aleena Leiva Phone: [facility] Start: 07-15-2021 End: 07-15-[address] Aleena London Work Phone: [facility] Start: 07-06-2021 End: 07-06-[address] Aleena London Work Phone: [facility] Start: 06-29-2021 End: 06-29-[address] Aleena London Work Phone: [facility] Start: 06-28-2021 End: 06-28-[address] Aleena London Work Phone: [facility] Start: 06-21-2021 End: 06-21-2021 Emergency department patient visit Dr. Aleena London Work Phone: [facility]-Emergency Department Start: 06-11-2021 End: 06-11-[address] Aleena London Work Phone: [facility]-Ultrasound, [facility] Start: 06-08-2021 End: 06-08-[address] Aleena London Work Phone: [facility]-Laboratory, [facility] Start: 06-03-2021 End: 06-03-[address] Aleena London Work Phone: [facility] Start: 05-24-2021 End: 05-24-[address] Aleena London Work Phone: [facility]-Laboratory, Specimen Start: 05-05-2021 End: 05-05-[address] Aleena London Work Phone: [facility]-Pulmonary Medicine [facility] Start: 05-03-2021 End: 05-03-[address] Aleena London Work Phone: [facility] Start: 12-31-2020 End: 12-31-2020 Subsequent hospital visit by physician [facility] Work Phone: Radiology Comment on above: Acute pain of left s houlder [M25.512] Start: 06-25-2020 End: 06-25-2020 Subsequent hospital visit by physician [facility] Work Phone: Radiology Comment on above: Bronchitis [J40] Start: 11-29-2017 End: 11-29-2017 Emergency department patient visit Debora Quiroz Facility:[facility] Procedures Date Procedure Procedure Detail Performing Clinician Start: 09-29-2023 X-ray of soft tissue of neck Dr. Aleena London Work Phone: Start: 09-29-2023 Bilateral mammography D rJennifer London Work Phone: Start: 09-29-2023 Ultrasonography of [...] London Work Phone: Start: 04-11-2023 Bilateral mammography D dillan London Work Phone: Start: 04-11-2023 Ultrasonography of [...] shoulder compl ete minimum 2 views Kavita RUSH-C Work Phone: Start: 06-25-2020 Radiologic exam ches t 2 views Nehemias Mazariegos MD Work Phone: Start: 04-19-2017 End: 04-19-2017 Routine OB Visit (Global) [facility] [employer] Work Phone: Start: 04-10-2017 End: 04-10-2017 Routine OB Visit (Global) Cassidy villatoro MD Work Phone: Start: 03-13-2017 End: 03-13-2017 Routine OB Visit (Global) [facility] [employer] Work Phone: Start: 03-03-2017 End: 03-03-2017 Routine OB Visit (Global) [facility] [employer] Work Phone: Start: 02-17-2017 End: 02-17-2017 Routine [...] London Work Phone: Fracture of femur (disorder) [place] Fracture of forearm (disorder) [place] Investigation of tra nsfusion reaction Dr. Aleena London Work Phone: Investigation of tra nsfusion reaction Dr. Aleena London Work Phone: Microbial culture, routine D rJennifer London Work Phone: Microbial culture, routine D [...] Activity Detail Author Start: 07-20-2053 Pneumococcal vaccination [facility] Comment on above: Postponed from 04/29 (Postponed To Appropriate Date) Start: 2047 RSV Immunization age d 60 or older (1 - 1-dose 60+ series) RSV Immunization aged 60 or older (1 - 1-dose 60+ series) [facility] Start: 2037 Zoster Vaccines (1 of 2) Zoste r Vaccines (1 of 2) [facility] Start: 08-11-2030 Tetanus vaccination Tetanus: Every 1 0yrs [facility] Start: 08-11-2030 Urine microalbumin profile DTa P,Tdap,Td Vaccine (2 - Td or Tdap) [facility] Start: 09-20-2024 End: 09-20-2024 Patient encounter procedure 09/20/2024 10:30 AM EDT Office Visit [facility] [address] [place] [address] Tomasz Ace Jr., DPM [address] [place] [address] [facility] Start: 01-21-2024 Covid-19 Vaccine ( season) Covid-19 Vaccine ( season) [facility] Start: 01-21-2024 Influenza vaccination [facility] Start: 12-19-2023 End: 12-19-2023 Patient encounter procedure Radiology Comment on above: RT FOOT BONE SPUR RT FOOT PA INFUL SEVERE Start: 09-29-2023 [facility] Start: 09-28-2023 HPV Testing HPV Testing [facility] Start: 09-28-2023 Pap Testing Pap Testing [facility] Start: 09-28-2023 Screening for malign ant neoplasm of cervix [facility] Start: 09-05-2023 Chlamydia deoxyribon ucleic acid detection [facility] Start: 09-05-2023 Source specific culture [facility] Start: 09-05-2023 [facility] Start: 07-26-2023 [facility] Start: 07-18-2023 [facility] Start: 07-06-2023 Patient referral [facility] Work Phone: Start: 06-29-2023 [facility] Start: 05-16-2023 Ultrasound elastogra phy of liver [facility] Start: 05-04-2023 [facility] Start: 05-03-2023 Cytoplasmic ANCA Screen [facility] Start: 04-19-2023 Patient referral [facility] Work Phone: Start: 04-11-2023 Digital breast tomosynthesis bilateral [facility] Start: 03-16-2023 Patient referral [facility] Work Phone: Start: 02-14-2023 Anes nerve muscle td n fascia&bursa forearm wrist [facility] Start: 02-14-2023 Neuroplasty &/transp os median nrv carpal tunne [facility] Start: 02-14-2023 Application of ice c ollar, cap or bag [facility] Start: 02-14-2023 Catheterization of vein [facility] Start: 02-14-2023 Elevation of affecte d extremity [facility] Start: 02-14-2023 Following clinical p athway protocol [facility] Start: 02-14-2023 Patient discharge [facility] Start: 02-14-2023 Procedure discontinued [facility] Start: 02-14-2023 Taking patient vital signs [facility] Start: 02-14-2023 Vital signs measurements [facility] Start: 02-14-2023 [facility] Start: 02-14-2023 Medication education [facility] Start: 02-13-2023 Patient referral [facility] Work Phone: Start: 02-13-2023 X-ray of cervical spine [facility] Start: 02-13-2023 X-ray of lumbar spin e, two or three views [facility] Start: 02-13-2023 XR Cervical spine 2 or 3 Views [facility] Start: 02-13-2023 XR Lumbar spine 2 or 3 Views [facility] Start: 01-20-2023 Covid-19 Vaccine ( season) Covid-19 Vaccine ( season) [facility] Start: 01-20-2023 Influenza vaccination Influenza Vacc ine (#1) [facility] Start: 09-02-2022 Patient referral [facility] Work Phone: Start: 07-17-2022 Plain chest X-ray [facility] Start: 07-17-2022 XR Chest PA and Lateral [facility] Start: 07-14-2022 Celiac disease screen [facility] Start: 07-14-2022 [facility] Start: 05-30-2022 Patient referral [facility] Work Phone: Start: 04-16-2022 Patient discharge [facility] Start: 04-15-2022 Ambulation therapy management [facility] Start: 04-15-2022 Continuous pulse oximetry [facility] Start: 04-15-2022 Elevation of head of bed [facility] Start: 04-15-2022 Incentive spirometry [facility] Start: 04-15-2022 Measuring intake and output [facility] Start: 04-15-2022 Notification of physician [facility] Start: 04-15-2022 Oxygen therapy [facility] Start: 04-15-2022 Patient education [facility] Start: 04-15-2022 Procedures relating to eating and drinking [facility] Start: 04-15-2022 Taking patient vital signs [facility] Start: 04-15-2022 [facility] Start: 04-15-2022 Introduction of urin cori catheter [facility] Start: 04-14-2022 [facility] Work Phone: Start: 04-13-2022 Application of intermittent pneumatic compression device [facility] Start: 04-13-2022 Consultation [facility] Start: 04-13-2022 Catheterization of vein [facility] Start: 04-12-2022 Following clinical p athway protocol [facility] Start: 04-12-2022 Ambulation without limitation [facility] Start: 04-12-2022 Assessment of risk o f venous thromboembolism [facility] Start: 04-12-2022 Insertion of cathete r into peripheral vein [facility] Start: 04-12-2022 Providing care accor ding to standard [facility] Start: 04-12-2022 [facility] Start: 04-12-2022 Verification routine [facility] Work Phone: Start: 04-12-2022 Admission procedure [facility] Start: 04-12-2022 End: 04-12-2022 Blood culture [facility] Work Phone: Start: 04-12-2022 Patient referral to dietitian [facility] Start: 03-30-2022 Culture bacterial quanttative colony count urine [facility] Start: 03-30-2022 Culture bct isol&prs mptv id isolate ea urine [facility] Start: 03-23-2022 Patient discharge [facility] Start: 03-22-2022 Ambulation therapy management [facility] Start: 03-22-2022 Continuous pulse oximetry [facility] Start: 03-22-2022 Elevation of head of bed [facility] Start: 03-22-2022 Incentive spirometry [facility] Start: 03-22-2022 Measuring intake and output [facility] Start: 03-22-2022 Notification of physician [facility] Start: 03-22-2022 Oxygen therapy [facility] Start: 03-22-2022 Patient education [facility] Start: 03-22-2022 Procedures relating to eating and drinking [facility] Start: 03-22-2022 Taking patient vital signs [facility] Start: 03-22-2022 Wound care [facility] Start: 03-22-2022 [facility] Start: 03-22-2022 Introduction of urin cori catheter [facility] Start: 03-22-2022 Admission procedure [facility] Start: 03-04-2022 [facility] Start: 01-03-2022 Fat [Presence] in Stool [facility] Work Phone: Start: 10-23-2021 Annual PCP Team Targeteer sarai Disease Visit Annual PCP Team Chronic Disease Visit [facility] Start: 09-27-2021 Screening for malign ant neoplasm of cervix Cervical Cancer Screening [facility] Start: 09-22-2021 Patient referral [facility] Work Phone: Start: 08-11-2021 Patient referral [facility] Work Phone: Start: 06-03-2021 Patient referral [facility] Work Phone: Start: 05-10-2017 End: 05-10-2017 Appointment Appointment [facility] Start: 2017 Screening for malign ant neoplasm of cervix [facility] Start: 04-19-2017 End: 04-19-2017 Appointment Appointment [facility] Start: 04-10-2017 End: 04-10-2017 Appointment Appointment [facility] Start: 03-13-2017 End: 03-13-2017 Us preg uterus after 1st trimest 1/ gestation US OB, >14 weeks [facility] Start: 03-13-2017 End: 03-13-2017 Appointment Appointment [facility] Start: 03-10-2017 End: 03-10-2017 Appointment Appointment [facility] Start: 03-03-2017 End: 03-13-2017 Us abdominal real time w/image limited US Kidney [facility] Start: 03-03-2017 End: 03-03-2017 Appointment Appointment [facility] Start: 03-01-2017 End: 03-01-2017 Appointment Appointment [facility] Start: 02-17-2017 End: 02-17-2017 Mri brain brain stem w/o contrast material MRI Brain [facility] Work Phone: Start: 02-17-2017 End: 02-17-2017 Appointment [facility] Start: 02-17-2017 End: 02-17-2017 Mri brain w/o dye MRI Brain [facility] Start: 02-09-2017 End: 02-09-2017 *CBC with Differential *CBC with Differential [facility] Start: 02-09-2017 End: 02-09-2017 *GC/Chlamydia *GC/Chlamydia [facility] Start: 02-09-2017 End: 02-11-2017 *HEBSAG - Hep B Surface Antigen 6510 *HEBSAG - Hep B Surface Antigen 6510 [facility] Start: 02-09-2017 End: 02-11-2017 *HIV antibody *HIV antibody [facility] Start: 02-09-2017 End: 02-09-2017 *TS Type and Screen *TS Type and Screen [facility] Start: 02-09-2017 End: 02-09-2017 Hemoglobin A1c/Hemoglobin.total mass fraction (Bld) *HgA1C [facility] Start: 02-09-2017 End: 02-11-2017 Reagin antibody presence *RPR [facility] Start: 02-09-2017 End: 02-11-2017 Rubella virus Ab [Units/volume] in Serum *Rubella Screen [facility] Start: 02-09-2017 End: 02-09-2017 Urine culture, bacteria *CUUR - Culture, Urine ([place] Count) [facility] Start: 02-09-2017 End: 03-13-2017 Us preg uterus after 1st trimest 1/ gestation US OB, >14 weeks [facility] Start: 02-09-2017 End: 02-09-2017 Appointment Appointment [facility] Start: 02-09-2017 End: 02-09-2017 *CBC with Differential *CBC with Differential [facility] Start: 02-09-2017 End: 02-09-2017 *GC/Chlamydia *GC/Chlamydia [facility] Start: 02-09-2017 End: 02-11-2017 *HEBSAG - Hep B Surface Antigen 6510 *HEBSAG - Hep B Surface Antigen 6510 [facility] Start: 02-09-2017 End: 02-11-2017 *HIV antibody *HIV antibody [facility] Start: 02-09-2017 End: 02-09-2017 *TS Type and Screen *TS Type and Screen [facility] Start: 02-09-2017 End: 02-09-2017 HbA1c *HgA1C [facility] Start: 02-09-2017 End: 02-09-2017 Ob us >/= 14 wks, sngl fetus US OB, >14 weeks [facility] Start: 02-09-2017 End: 02-11-2017 Reagin antibody presence *RPR [facility] Start: 02-09-2017 End: 02-11-2017 Rubella virus Ab [Units/volume] in Serum *Rubella Screen [facility] Start: 02-09-2017 End: 02-09-2017 Urine culture, bacteria *CUUR - Culture, Urine ([place] Count) [facility] Start: 02-06-2017 End: 02-09-2017 Thyroid stimulating hormone (TSH) *TSH [facility] Start: 02-06-2017 End: 02-09-2017 Thyroxine (T4) *T4 TT4 (Thyroxine Total) [facility] Start: 02-06-2017 End: 02-09-2017 Thyroid stimulating hormone (TSH) *TSH [facility] Start: 02-06-2017 End: 02-09-2017 Thyroxine (T4) *T4 TT4 (Thyroxine Total) [facility] Start: 01-17-2017 End: 01-17-2017 Bacteria genital culture *CUV - Culture, VAG/CX Comprehensive [facility] Start: 01-17-2017 End: 01-17-2017 Appointment Appointment [facility] Start: 01-17-2017 End: 01-17-2017 Bacteria genital culture *CUV - Culture, VAG/CX Comprehensive [facility] Start: 01-09-2017 End: 01-09-2017 Appointment Appointment [facility] Start: 01-09-2017 End: 01-09-2017 *ABS Antibody Screen, Indirect *ABS Antibody Screen, Indirect [facility] Start: 01-09-2017 End: 01-09-2017 *Blood Typing, RH *Blood Typing, RH [facility] Start: 01-09-2017 End: 01-09-2017 *CBC with Differential *CBC with Differential [facility] Start: 01-09-2017 End: 01-09-2017 *GC/Chlamydia *GC/Chlamydia [facility] Start: 01-09-2017 End: 01-09-2017 *HEBSAG - Hep B Surface Antigen 6510 *HEBSAG - Hep B Surface Antigen 6510 [facility] Start: 01-09-2017 End: 01-09-2017 *HIV antibody *HIV antibody [facility] Start: 01-09-2017 End: 01-09-2017 *TS Type and Screen *TS Type and Screen [facility] Start: 01-09-2017 End: 01-09-2017 GTT (glucose after 1hr PO glucose) *Glucose, Post Glucose Dose [facility] Start: 01-09-2017 End: 01-09-2017 Reagin antibody presence *RPR [facility] Start: 01-09-2017 End: 01-09-2017 Rubella virus Ab [Units/volume] in Serum *Rubella Screen [facility] Start: 01-09-2017 End: 01-09-2017 Thyroid stimulating hormone (TSH) *TSH [facility] Start: 01-09-2017 End: 01-09-2017 Thyroxine (T4) *T4 TT4 (Thyroxine Total) [facility] Start: 01-09-2017 End: 01-09-2017 Urine culture, bacteria *CUUR - Culture, Urine ([place] Count) [facility] Start: 01-09-2017 End: 01-09-2017 *ABS Antibody Screen, Indirect *ABS Antibody Screen, Indirect [facility] Start: 01-09-2017 End: 01-09-2017 *Blood Typing, RH *Blood Typing, RH [facility] Start: 01-09-2017 End: 01-09-2017 *CBC with Differential *CBC with Differential [facility] Start: 01-09-2017 End: 01-09-2017 *GC/Chlamydia *GC/Chlamydia [facility] Start: 01-09-2017 End: 01-09-2017 *HEBSAG - Hep B Surface Antigen 6510 *HEBSAG - Hep B Surface Antigen 6510 [facility] Start: 01-09-2017 End: 01-09-2017 *HIV antibody *HIV antibody [facility] Start: 01-09-2017 End: 01-09-2017 *TS Type and Screen *TS Type and Screen [facility] Start: 01-09-2017 End: 01-09-2017 GTT (glucose after 1hr PO glucose) *Glucose, Post Glucose Dose [facility] Start: 01-09-2017 End: 01-09-2017 Reagin antibody presence *RPR [facility] Start: 01-09-2017 End: 01-09-2017 Rubella virus Ab [Units/volume] in Serum *Rubella Screen [facility] Start: 01-09-2017 End: 01-09-2017 Thyroid stimulating hormone (TSH) *TSH [facility] Start: 01-09-2017 End: 01-09-2017 Thyroxine (T4) *T4 TT4 (Thyroxine Total) [facility] Start: 01-09-2017 End: 01-09-2017 Urine culture, bacteria *CUUR - Culture, Urine ([place] Count) [facility] Start: 01-02-2017 End: 01-09-2017 Us uterus 14 wk transabdl 05/22 gestat US OB, <14 weeks [facility] Start: 01-02-2017 End: 01-09-2017 Ob us < 14 wks, single fetus US OB, <14 weeks [facility] Start: 2008 Screening for malign ant neoplasm of cervix Pap Smear [facility] Start: 2006 DTaP/Tdap/Td Vaccine s (1 - Tdap) DTaP/Tdap/Td Vaccines (1 - Tdap) [facility] Start: 2006 Hepatitis B Vaccine (1 of 3 - 19+ 3-dose series) Hepatitis B Vaccine (1 of 3 - 19+ 3-dose series) [facility] Start: 2006 Pneumococcal Vaccine : Ped or At-Risk (1 of 2 - PCV) Pneumococcal Vaccine: Ped or At-Risk (1 of 2 - PCV) [facility] Start: 2005 Anxiety Screening Anxiety Screening [facility] Start: 2005 Depression Screening Depression Scre ening [facility] Start: 2005 Hepatitis C screening Hepatitis C Sc reening [facility] Start: 2002 HIV screening HIV Screening [facility] Start: 1999 Depression Screening [facility] Start: 1990 History and physical examination, annual for health maintenance Wellness Visit [facility] Start: 1988 MMR Vaccines (1 of 1 - Standard series) MMR Vaccines (1 of 1 - Standard series) [facility] Start: 1988 Varicella vaccination Varicell a Vaccines (1 of 2 - 2-dose childhood series) [facility] Start: 1987 Covid-19 Vaccine (#1) Covid-19 Vacci ne (#1) [facility] Start: 1987 Hepatitis B Vaccine (1 of 3 - 3-dose series) Hepatitis B Vaccine (1 of 3 - 3-dose series) [facility] Start: 1987 Hepatitis B Vaccines (1 of 3 - 3-dose series) Hepatitis B Vaccines (1 of 3 - 3-dose series) [facility] Start: 1987 HIV screening HIV Screening [facility] river Anaerobic Culture Anaerobic Culture [facility] Work Phone: Anaerobic microbial culture Anaerobic Culture [facility] Work Phone: Antibody to lupus La protein measurement [facility] Antibody to SS-A measurement [facility] Bacteria identified in Blood by Culture Blood Culture [facility] Work Phone: Bacteria identified in Unspecified specimen by Anaerobe culture [facility] Work Phone: Blood culture [facility] Work Phone: Centromere protein B Ab [Units/volume] in Serum [facility] Chromatin Ab [Units/volume] in Serum or Plasma [facility] DNA double strand Ab [Units/volume] in Serum [facility] Fat [Mass/mass] in Stool [facility] Work Phone: Fat.neutral [Presenc e] in Stool [facility] Work Phone: Alise-1 extractable nuc lear Ab [Units/volume] in Serum [facility] Lipid 1996 panel - S luisa or Plasma [facility] Measurement of immunoglobulin A in serum specimen [facility] Microbial culture, routine Wound Culture [facility] Work Phone: MR Biliary ducts and Pancreatic duct contrast [facility] Work Phone: Neisseria gonorrhoea e rRNA [Presence] in Unspecified specimen by JONE with probe detection [facility] Neutrophil cytoplasm ic Ab.classic [Units/volume] in Serum [facility] P-ANCA measurement [facility] Patient Education [facility] Work Phone: Patient referral [facility] Work Phone: PCR test for Chlamyd ia trachomatis [facility] Radionuclide gastric emptying study [facility] Work Phone: Radionuclide gastric emptying study [facility] Radionuclide imaging of liver and/or biliary tract using radioactive isotope [facility] Work Phone: SCL-70 extractable n uclear Ab [Units/volume] in Serum by Immunoassay [facility] Tano extractable nu clear Ab [Presence] in Serum [facility] Tissue transglutamin ase IgA Ab [Units/volume] in Serum [facility] Tissue transglutamin ase IgG Ab [Units/volume] in Serum [facility] Ultrasound elastography [facility] Work Phone: Ultrasound elastography [facility] Urine test [facility] Work Phone: US Abdomen limited [facility] US Pelvis [facility] US Pelvis [facility] US Pelvis transvaginal [facility] US Pelvis transvaginal [facility] End: 12-19-2024 XR Foot - right AP and Lateral and oblique XR FOOT GENERAL 3V AP/LAT/OBL RIGHT Radiology Routine Pain 1 Occurrences starting 11/20/2023 until 12/19/2024 [facility] Work Phone: Comment on above: 1 Occurrences starti ng 11/20/2023 until 12/19/2024 [facility] Immunizations Immunization Date Immunization Notes Care Provider Fa junior 08-11-2020 tetanus toxoid, redu wendy diphtheria toxoid, and acellular pertussis vaccine, adsorbed Dr. Aleena London Work Phone: [facility] 04-16-2019 influenza virus vaccine, unspecified formulation Nima Kaur MD Work Phone: [facility] 08-29-2012 RHO(D) immune globul in- IV or IM Nima Kaur MD Work Phone: [facility] Work Phone: 06-22-2012 RHO(D) immune globul in- IV or IM Nima Kaur MD Work Phone: [facility] 06-02-2012 RHO(D) immune globul in- IV or IM Nima Kaur MD Work Phone: [facility] Payers Date Payer Category Payer Unknown [id number] 02-10-2025 Unknown [id number] 02-06-2025 Unknown [id number] 05-06-2024 Unknown [id number] 02-02-2024 Self-pay [id number] 08-20-2021 Medicaid (Managed Care) [facility] MEDICAID [id number] 08-20-2021 Unknown [id number] 07-20-2020 Medicaid [id number] 09-20-2019 Private Health Insurance [facility] [id number] 09/20/2019-05/21/2020 [address] [address] [place] [address] HMO [id number] 11-29-2017 Unknown 08-20-2016 Unknown [id number] 1987 Unknown [id number] 2.16.840.1.744942.3.579.2. 1069 1987 Unknown [id number] 2.16.840.1.199113.3.579.2. 903 1987 Unknown [id number] 2.16840.1.296807.3.579.2. 627 1987 Unknown [id number] 2.16.840.1.090921.3.579.2. 627 1987 Unknown [id number] 2.16.840.1.905925.3.579.2. 903 1987 Unknown [id number] 2.16.840.1.280556.3.579.2. 903 1987 Unknown [id number] 2.16.840.1.913035.3.579.2. 903 1987 Unknown [id number] 2.16.840.1.343747.3.579.2. 902 1987 Unknown [id number] 2.16.840.1.780411.3.579.2. 902 1987 Unknown [id number] 2.16.840.1.517224.3.579.2. 902 1987 Unknown [id number] 2.16.840.1.048142.3.579.2. 902 1987 Unknown [id number] 2.16.840.1.589083.3.579.2. 902 1987 Unknown [id number] 2.16.840.1.401327.3.579.2. 902 1987 Unknown [id number] 2.16.840.1.196074.3.579.2. 902 1987 Unknown [id number] 2.16.840.1.514442.3.579.2. 902 1987 Unknown [id number] 2.16.840.1.506754.3.579.2. 902 1987 Unknown [id number] 2.16.840.1.095830.3.579.2. 902 1987 Unknown [id number] 2.16.840.1.400699.3.579.2. 902 1987 Unknown [id number] 2.16.840.1.626780.3.579.2. 902 1987 Unknown [id number] 2.16.840.1.206598.3.579.2. 902 1987 Unknown [id number] 2.16.840.1.731616.3.579.2. 902 1987 Unknown [id number] 2.16.840.1.611843.3.579.2. 902 1987 Unknown [id number] 2.16.840.1.091097.3.579.2. 902 1987 Unknown [id number] 2.16.840.1.930284.3.579.2. 902 1987 Unknown [id number] 2.16.840.1.665569.3.579.2. 902 1987 Unknown [id number] 2.16.840.1.702020.3.579.2. 902 1987 Unknown [id number] 2.16.840.1.463516.3.579.2. 902 1987 Unknown [id number] 2.16.840.1.333854.3.579.2. 902 1987 Unknown [id number] 2.16.840.1.426925.3.579.2. 902 1987 Unknown [id number] 2.840.1.470371.3.579.2. 902 Unknown [id number] Unknown [id number] Unknown [id number] 2.840.1.713244.3.579.2. 462 Unknown [id number] 2.840.1.613804.3.579.2. 462 Unknown [id number] 840.1.705262.3.579.2. 462 Unknown [id number] .840.1.638781.3.579.2. 462 Unknown [id number] 2.840.1.706655.3.579.2. 462 Unknown [id number] 2.840.1.590449.3.579.2. 462 Unknown [id number] 2.840.1.673199.3.579.2. 462 Unknown [id number] 2.840.1.232755.3.579.2. 462 Unknown [id number] 2.16.840.1.296651.3.579.2. 462 Unknown [id number] 2.16.840.1.335999.3.579.2. 462 Unknown [id number] 2.16.840.1.581325.3.579.2. 462 Unknown [id number] 2.16.840.1.023291.3.579.2. 462 Unknown [id number] 2.16.840.1.234499.3.579.2. 462 Unknown [id number] 2.16.840.1.367093.3.579.2. 462 Unknown [id number] 2.16.840.1.943270.3.579.2. 462 Unknown [id number] 2.16.840.1.746383.3.579.2. 462 Unknown [id number] 2.16.840.1.215080.3.579.2. 462 Unknown [id number] 2.16.840.1.422034.3.579.2. 462 Unknown [id number] 2.16.840.1.268851.3.579.2. 462 Unknown [id number] 2.16.840.1.136258.3.579.2. 462 Unknown [id number] 2.16.840.1.628128.3.579.2. 462 Unknown [id number] 2.16.840.1.101047.3.579.2. 462 Unknown [id number] 2.16.840.1.453126.3.579.2. 462 Unknown [id number] 2.16.840.1.987304.3.579.2. 462 Unknown [id number] 2.16.840.1.016668.3.579.2. 462 Unknown [id number] 2.16.840.1.088336.3.579.2. 462 Unknown [id number] 2.16.840.1.600397.3.579.2. 462 Unknown [id number] 2.16.840.1.876410.3.579.2. 462 Unknown [id number] 2.16840.1.989316.3.579.2. 462 Unknown [id number] 2.16840.1.554895.3.579.2. 462 Unknown [id number] 2.840.1.839469.3.579.2. 462 Unknown [id number] 2.16840.1.506485.3.579.2. 462 Unknown [id number] 2.840.1.745025.3.579.2. 462 Unknown [id number] 2.840.1.242387.3.579.2. 462 Unknown [id number] 2.840.1.459496.3.579.2. 462 Unknown [id number] 2.840.1.962558.3.579.2. 462 Unknown [id number] 2.840.1.854351.3.579.2. 462 Unknown [id number] 2.840.1.970895.3.579.2. 462 Unknown [id number] 2.840.1.053094.3.579.2. 462 Unknown [id number] 2.840.1.874238.3.579.2. 462 Unknown [id number] 2.840.1.256736.3.579.2. 462 Unknown [id number] 2.840.1.295268.3.579.2. 462 Unknown [id number] 2.840.1.426608.3.579.2. 462 Unknown [id number] 2.840.1.241076.3.579.2. 462 Unknown [id number] 2.840.1.864796.3.579.2. 462 Unknown [id number] 2.16.840.1.152058.3.579.2. 462 Unknown [id number] 2.16.840.1.979473.3.579.2. 462 Unknown [id number] 2.16.840.1.012663.3.579.2. 462 Unknown [id number] 2.16.840.1.486718.3.579.2. 462 Unknown [id number] 2.16.840.1.939092.3.579.2. 462 Unknown [id number] 2.16.840.1.623149.3.579.2. 462 Unknown [id number] 2.16840.1.320585.3.579.2. 462 Unknown [id number] 2.840.1.737406.3.579.2. 462 Unknown [id number] 2.840.1.945454.3.579.2. 462 Unknown [id number] 2.16840.1.158234.3.579.2. 462 Unknown [id number] 2.16.840.1.769656.3.579.2. 462 Unknown [id number] 2.16840.1.220308.3.579.2. 462 Unknown [id number] 2.16840.1.595804.3.579.2. 462 Unknown [id number] 2.840.1.680278.3.579.2. 462 Unknown [id number] 2.16.840.1.547292.3.579.2. 462 Unknown [id number] 2.16.840.1.998078.3.579.2. 462 Unknown [id number] 2.16.840.1.738079.3.579.2. 462 Unknown [id number] 2.16.840.1.264316.3.579.2. 462 Unknown [id number] 2.16840.1.943607.3.579.2. 462 Unknown [id number] 2.16.840.1.301589.3.579.2. 462 Unknown [id number] 2.16.840.1.795044.3.579.2. 462 Unknown [id number] 2.16.840.1.699106.3.579.2. 462 Unknown [id number] 2.16.840.1.694627.3.579.2. 462 Unknown [id number] 2.16.840.1.781588.3.579.2. 462 Unknown [id number] 2.16.840.1.670181.3.579.2. 462 Unknown [id number] 2.16.840.1.276591.3.579.2. 462 Unknown [id number] 2.16.840.1.126489.3.579.2. 462 Unknown [id number] 2.840.1.857244.3.579.2. 462 Unknown [id number] 2.16840.1.192786.3.579.2. 462 Unknown [id number] 2.840.1.359695.3.579.2. 462 Unknown [id number] 2..840.1.545790.3.579.2. 462 Unknown [id number] 2.16.840.1.907837.3.579.2. 462 Unknown [id number] 2.16.840.1.524824.3.579.2. 462 Unknown [id number] 2.16.840.1.221195.3.579.2. 462 Unknown [id number] 2.16.840.1.473184.3.579.2. 462 Unknown [id number] 2.16.840.1.018148.3.579.2. 462 Unknown [id number] 2.16.840.1.193369.3.579.2. 462 Unknown [id number] 2.16.840.1.441245.3.579.2. 462 Unknown [id number] 2.16.840.1.423755.3.579.2. 462 Unknown [id number] 2.16.840.1.844640.3.579.2. 462 Unknown [id number] 2.16.840.1.798729.3.579.2. 462 Unknown [id number] 2.16.840.1.987015.3.579.2. 462 Unknown [id number] 2.16.840.1.171471.3.579.2. 462 Unknown [id number] 2.16840.1.012855.3.579.2. 462 Unknown [id number] 2.16840.1.534964.3.579.2. 462 Unknown [id number] 2.840.1.604011.3.579.2. 462 Unknown [id number] 2.16840.1.209534.3.579.2. 462 Unknown [id number] 2.16840.1.045260.3.579.2. 462 Unknown [id number] 2.16840.1.178181.3.579.2. 462 Unknown [id number] 2.16840.1.432578.3.579.2. 462 Unknown [id number] 2.16840.1.140852.3.579.2. 462 Unknown [id number] 2.16840.1.609906.3.579.2. 462 Unknown [id number] 2.16.840.1.054333.3.579.2. 462 Unknown [id number] 2.16840.1.005348.3.579.2. 462 Unknown [id number] 2.16.840.1.751830.3.579.2. 462 Unknown [id number] 2.16840.1.384999.3.579.2. 462 Unknown [id number] 2.16.840.1.128532.3.579.2. 462 Unknown [id number] 2.16.840.1.573527.3.579.2. 462 Unknown [id number] 2.16.840.1.803044.3.579.2. 462 Unknown [id number] 2.16.840.1.142841.3.579.2. 462 Unknown [id number] 2.16.840.1.397790.3.579.2. 462 Unknown [id number] 2.16.840.1.040235.3.579.2. 462 Unknown [id number] 2.16.840.1.971077.3.579.2. 462 Unknown [id number] 2.16.840.1.936031.3.579.2. 462 Unknown [id number] 2.16.840.1.608247.3.579.2. 462 Unknown [id number] 2.16.840.1.851310.3.579.2. 462 Unknown [id number] 2.16.840.1.125998.3.579.2. 462 Social History Date Type Detail Facility [facility] Work Phone: Start: 08-20-2021 End: 05-04-2023 Tobacco smoking status NHIS Unknown if ever smoked [facility] Start: 07-01-2020 None [facility] Start: 09-08-2020 With Family [facility] Start: 05-25-2020 Cigarettes [facility] Start: 1985 Sex Assigned At Female [facility] Start: 11-16-2022 End: 02-11-2024 Tobacco smoking status Smokes tobacco daily (finding) [facility] Sex Assigned At Sex [facility] Start: 09-02-2004 History of tobacco use Cigarette Smo ker [facility] Start: 11-16-2022 End: 06-21-2024 Cigarettes smoked current (pack per day) - Reported 1 [facility] Start: 11-16-2022 End: 02-11-2024 Tobacco use and exposure Smokeless tobacco non-user [facility] Start: 06-25-2020 End: 11-16-2022 Alcohol intake Current non-drinker of alcohol (finding) [facility] Start: 01-27-2020 End: 06-21-2024 Social connection and isolation panel [facility] Do you belong to any clubs or organizations such as judaism groups, unions, fraternal or athletic groups, or school groups? No [facility] Are you now , , , , never or living with a partner? [facility] How often to you hav e a drink containing alcohol? Monthly or less [facility] Work Phone: How many standard drinks containing alcohol do you have on a typical day? 3 or 4 [facility] Work Phone: How often do you hav e 6 or more drinks on 1 occasion? Less than monthly [facility] Work Phone: How hard is it for y ou to pay for the very basics like food, housing, medical care, and heating Hard [facility] Work Phone: Adult Depression Screening Assessment 1 [facility] Do you feel stress - tense, restless, nervous, or anxious, or unable to sleep at night because your mind is troubled all the time - these days [OSQ] Only a little [facility] (I/We) worried whehaven er (my/our) food would run out before (I/we) got money to buy more. Never true [facility] Work Phone: Start: 01-27-2020 Education 12 [facility] Start: 12-09-2016 End: 11-16-2022 Tobacco Comment Childhood home parents smoked outside. [facility] Start: 1985 Sex Assigned At Not on file [facility] Start: 05-26-2020 End: 12-31-2020 Exposure to SARS-CoV-2 (event) Not sure [facility] Start: 06-21-2024 Alcoholic beverage intake Current drinker of alcohol (finding) [facility] Start: 03-02-2021 Alcohol Comment occasionally [facility] Start: 02-24-2022 Gender identity Identifies as female gender (finding) [facility] Start: 02-24-2022 Sexual orientation Heterosexual (ananya stahl) [facility] NEGATED: Highlighted row [facility] Medical Equipment Procedure Code Equipment Code Equipment Origin al Text Equipment Identifier Dates Vaginal hysterectomy SEALANT,JASWINDER SEAL HEMOSTATIC 5ML FDA Start: 03-22-2022 Vaginal hysterectomy )[id number] FDA Start: 03-22-2022 Vaginal hysterectomy SEALANT,JASWINDER SEAL [...] 02-07-2020 Thyroidectomy FDA Start: 02-07-2020 Laparoscopy, diagnostic ([id number]) [id number] FDA Start: 04-15-2022 Acetone (Urine) Test (Ketone [...] Facility 08-15-2022 Functional Status Room check performed [facility] 08-15-2022 Functional Status [facility] 04-16-2022 Functional status Ambulates [facility] Work Phone: 03-23-2022 Functional status Up ad dylan [facility] Work Phone: Mental Status Date Assessment Result Facility 09-29-2023 Cognitive function Awake;Alert;A ppropriate;Follow s Commands [facility] Work Phone: 06-29-2023 Cognitive function Awake;Alert;A ppropriate;Follow s Commands [facility] Work Phone: 04-17-2023 Cognitive function Awake [facility] Work Phone: 02-14-2023 Cognitive function Voice/Name [facility] Work Phone: 12-25-2022 Cognitive function Voice/Name [facility] Work Phone: 08-17-2022 Cognitive function Awake;Alert;Appropriat [facility] Work Phone: 08-15-2022 Mental Status Orientation Oriented x 4 [facility] 08-15-[address] [facility] 07-17-2022 Cognitive function Voice/Name [facility] Work Phone: 04-18-2022 Cognitive function Awake;Alert;A ppropriate;Follow s Commands [facility] Work Phone: 04-16-2022 Cognitive function Voice/Name [facility] Work Phone: 03-30-2022 Cognitive function Awake;Alert;A ppropriate;Follow s Commands [facility] Work Phone: 03-23-2022 Cognitive function Voice/Name [facility] Work Phone: 03-23-2022 Cognitive function Appropriate;[facility] Work Phone: 11-27-2021 Cognitive function Appropriate;[facility] Work Phone: 08-25-2021 Cognitive function Level Of Cons ciousness Awake;Alert;Appropriate;Follow s Commands [facility] Work Phone: Clinical Notes 2018 to 06-21-2024 Tomasz Ace Jr., HALIMA - 06/21/2024 2:47 PM EST Note Date & Type Note Facility 06-21-2024 Note HPI Chief Complaint Patient presents with Foot Pain Bilateral foot pain x 1 yr - pt states that she has been having pain in the front part of the heel into the arch and sometimes get "white bumps" in that area - pt states that she recently started getting "sharp shooting " pains - no trauma or injury - [...] Resource Strain: High Risk (02/19/2020) Received from [facility] Overall Financial Resource Strain (CARDIA) Difficulty of Paying Living Expenses: Hard Food Insecurity: No Food Insecurity (02/19/2020) Received from [facility] Hunger Vital Sign Worried About Running Out of Food in the Last Year: Never true Ran Out of Food in the Last Year: Never true Transportation Needs: No Transportation Needs (02/19/2020) Received from [facility] PRAPARE - Transportation Lack of Transportation (Medical): No Lack of Transportation (Non-Medical): No Physical Activity: Insufficiently Active (01/27/2020) Received from [facility] Exercise Vital Sign Days of Exercise per Week: 2 days Minutes of Exercise per Session: 20 min Stress: No Stress Concern Present (01/27/2020) Received from [facility] [employer] [place] [facility] [employer] [facility] - Occupational Stress Questionnaire Feeling of Stress : Only a little Social Connections: Moderately Isolated (01/27/2020) Received from [facility] Social Connection and Isolation Panel [NHANES] Frequency of Communication with Friends and Family: More than three times a week Frequency of Social Gatherings with Friends and Family: Twice a week Attends Evangelical Services: Never Active Member of Clubs or Organizations: No Attends Club or Organization Meetings: Never Marital Status: Housing Stability: Low Risk (01/27/2020) Received from [facility], [facility] Housing Stability Vital Sign Unable to [...] BY TOMASZ ACE JR., ON 06/21/2024 14:55:06 [facility] 06-21-2024 History of Presen t illness Narrative HPI Chief Complaint Patient presents with Foot Pain Bilateral foot pain x 1 yr - pt states that she has been having pain in the front part of the heel into the arch and sometimes get "white bumps" in that area - pt states that she recently started getting "sharp shooting " pains - no trauma or injury - [...] Resource Strain: High Risk (02/19/2020) Received from [facility] Overall Financial Resource Strain (CARDIA) Difficulty of Paying Living Expenses: Hard Food Insecurity: No Food Insecurity (02/19/2020) Received from [facility] Hunger Vital Sign Worried About Running Out of Food in the Last Year: Never true Ran Out of Food in the Last Year: Never true Transportation Needs: No Transportation Needs (02/19/2020) Received from [facility] PRAPARE - Transportation Lack of Transportation (Medical): No Lack of Transportation (Non-Medical): No Physical Activity: Insufficiently Active (01/27/2020) Received from [facility] Exercise Vital Sign Days of Exercise per Week: 2 days Minutes of Exercise per Session: 20 min Stress: No Stress Concern Present (01/27/2020) Received from [facility] [place] [facility] [employer] - Occupational Stress Questionnaire Feeling of Stress : Only a little Social Connections: Moderately Isolated (01/27/2020) Received from [facility] Social Connection and Isolation Panel [NHANES] Frequency of Communication with Friends and Family: More than three times a week Frequency of Social Gatherings with Friends and Family: Twice a week Attends Evangelical Services: Never Active Member of Clubs or Organizations: No Attends Club or Organization Meetings: Never Marital Status: Housing Stability: Low Risk (01/27/2020) Received from [facility] Housing Stability Vital Sign Unable to Pay [...] cam boot immobilization. documented in this encounter [facility] 09-30-2023 Hospital Discharg e instructions Additional Instructions 1. Apply ice 6-8 times a day 2. Avoid neck movement it causes you pain. 3. If you develop weakness in your hands or difficulty using your upper extremity return to the emergency room otherwise follow-up with your doctor Dr. London [facility] Work Phone: 09-29-2023 Discharge summary Note Date/Time September 29, 2023 3:52p [facility] Medical Records Department [address] [place] [address] Emergency Department Summary 09/29/23 MR#: [id number] Acct: [id number] Name: LANA RIVERA Rep #:[id number] : 1985 38 From: Sorin Jacobs MD [...] Prior similar symptoms: Yes Recent Illness/Hospitalization: Yes [facility] Medical History ADHD (attention deficit hyperactivity [...] % (Auto) 59.6 Lymph % (Auto) 26.8 [place] % (Auto) 9.4 Eos % (Auto) 3.4 [...] your Primary Care Provider. Call [facility] ([phone]) or report to the closest Emergency Room. Call 911 if necessary. 09/29/23 1611 <Electronically signed by Sorin Jacobs MD> Cosigner Signature (if applicable): CC: Dr. Aleena London MD ~ Signed [facility] Work Phone: 1(478) 451-402705-10-2024 Hospital Discharge instructions Additional Instructions 1. Apply ice 6-8 times a day 2. Avoid neck movement it causes you pain. 3. If you develop weakness in your hands or difficulty using your upper extremity return to the emergency room otherwise follow-up with your doctor Dr. Perezchet [facility] Work Phone: 1(539) 754-434503-27-2024 NoteHNO ID: [id number] Author: JAYLA MEDINA APRN.[employer] Service: ? Author Type: Nurse Practitioner Type: [...] years as her is s/p vasectomy. Her Tack Maker is Dr. Garcia and Dr. 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 Her Tack Maker is Dr. Garcia and Dr. Moore" IMAGING: US PELVIS: 11/08/2022 R ovary reportedly [...] normal Last colonoscopy: N/A [facility] Discharge summary Author Ashutosh Barajas [facility] July 18, 2023 11:41pm Note Date/Time July 18, 2023 11:36pm [facility] Medical Records Department [address] [place] [address] Emergency Department Summary 07/18/23 MR#: [id number] Acct: [id number] Name: LANA RIVERA Giselle Rep #:[id number] : 1985 38 From: Ashutosh Barajas MD [...] pain or shortness of breath or syncope. [facility] Medical History Abdominal pain ADHD (attention [...] your Primary Care Provider. Call [facility] ([phone]) or report to the closest Emergency Room. Call 911 if necessary. 07/18/23 2340 <Electronically signed by Ashutosh Barajas MD> Cosigner [...] for any DVT. 07/18/23 234<Electronically signed by Asuhtosh Barajas MD> Cosigner Signature (if applicable): cc: Dr. Aleena London MD ~* Signed [facility] Work Phone: 1(718) 682-503811-22-2023 NoteSpoke with Sandra at [facility]. Explained that we do not except [employer]. State that she will call Pt to let her know. [facility] Tele[facility] encounter Note* Telephone Encounter - Dimple Lewis - 04/12/2023 12:05 PM EST Spoke with Sandra at [facility]. Explained that we do not except [employer]. State that she will call Pt to let her know. Ok to close [id number] Miscellaneous Notes* Telephone Encounter - Dimple Lewis - 04/12/2023 12:05 PM EST Spoke with Sandra at [facility]. Explained that we do not except [employer]. State that she will call Pt to let her know. Ok to close referral documented in this [facility]09-26-[address] [facility]09-14-2023 Miscellaneous Notes* Telephone Encounter - Riya [...] calling: self Call patient at: on cell [phone] (home) [phone] (cell) Was an appointment scheduled: No Closing statement: Results or non-symptom based questions: Thank you for calling [facility], your call will be returned within the next business day. Radha Stark documented in [facility]-2023 Discharge summary Author Stephany Robbins [facility] December 25, 2022 2:24pm Note Date/Time December 25, 2022 12: 56pm [facility] Medical Records Department [address] [place] [address] Emergency Department Summary 12/25/22 MR#: [id number] Acct: [id number] Name: LANA RIVERA Rep #:[id number] : 1985 37 From: Ry Enamorado MD [...] a chronic smoker's cough which is unchanged. [facility] <ADRI Burgess - Last Filed: 12/25/22 14:24> [facility] Medical History Abdominal pain ADHD (attention [...] % (Auto) 58.5 Lymph % (Auto) 26.7 [place] % (Auto) 7.8 Eos % (Auto) 5.7 [...] Enamorado MD - Last Filed: 12/25/22 13:56> [facility] Narrative Medical decision making narrative: I have [...] % (Auto) 58.5 Lymph % (Auto) 26.7 [place] % (Auto) 7.8 Eos % (Auto) 5.7 [...] pain Instructions: Medicine for Pain, Chest Pain [facility] Prescriptions: New methocarbamol 500 mg tablet 500 [...] your Primary Care Provider. Call [facility] ([phone]) or report to the closest Emergency Room. Call 911 if necessary. 12/25/22 1356 <Electronically signed by Ry Enamorado MD> Cosigner Signature (if applicable): 12/25/22 1424 <Electronically signed by Stephany RUSH> CC: Dr. Aleena London MD ~ Signed [facility] Work Phone: 1(114) 139-732807-01-2023 Discharge summary Author Jesi Padilla [facility] November 20, 2022 12:04am Note Date/Time November 19, 2022 9:23p [facility] Medical Records Department [address] [place] [address] Emergency Department Summary 11/19/22 MR#: [id number] Acct: [id number] Name: LANA RIVERA Rep #:[id number] : 1985 37 From: Jesi Padilla MD [...] some of her pain possibly from scarring. 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 She hasseen her PRODUCE DEPARTMENT SUPERVISOR and then a specialist in [place] but they do not want to remove [...] % (Auto) 55.7 Lymph % (Auto) 30.7 [place] % (Auto) 8.1 Eos % (Auto) 4.7 [...] Instructions: Follow-up with Dr. Tracy and your manual qa tester. Disposition Disposition: Home, Self Care What to do if you have Problems For any increased pain, shortness of breath, bleeding, nausea or vomiting, chestpain, or any unexpected problems, contact your Primary Care Provider. Call [facility] ([phone]) or report to the closest Emergency Room. Call 911 if necessary. 11/20/22 0004 <Electronically signed by Jesi Padilla MD> Cosigner Signature (if applicable): CC: Dr. Aleena London MD ~ Signed [facility] Work Phone: 1(755) 381-146106-28-2023 NoteHNO ID: [id number] Author: LUKASZ EUBANKS MD Service: ? Author [...] years as her is s/p vasectomy. Her Tack Maker is Dr. Garcia and Dr. Moore The [...] bleeding, vaginal discharge and vaginal pain. 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 HRT use: No. History of abnormal pap: Yes, 2 (more content not included)...[facility]06-28-2023 History of Present illness Narrative* Lukasz [...] years as her is s/p vasectomy. Her Tack Maker is Dr. Garcia and Dr. Moore The history is provided by the patient. ROS: Review of Systems Constitutional: Negative for activity change, appetite change, fatigue, fever and unexpected weightchange. Cardiovascular: Negative for chest pain and palpitations. Gastrointestinal: Positive for abdominal pain. Negative for constipation, diarrhea, nausea and vomiting. Genitourinary: Positive for pelvic pain. Negative for vaginal bleeding, vaginal discharge and vaginal pain. 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 Last year has been living in old [...] (98.6 F) (Oral) Ht 167.6 cm (5' 6") Wt 102.1 kg (225 lb) LMP 04/22/2020 [...] which included preparing to see the patient, [id number] patient care, completing clinical documentation, obtaining and/or reviewing separately obtained history, performing a medically appropriate examination, and counseling and educating the patient/family/caregiver. Lukasz Eubanks MD, MS Gynecologic Oncologist documented in [facility]23 Hospital Discharge instructions Patient Education 08/15/2022 16:51:47 ED Pain Management (04/2018)(CUSTOM) WELCOME Pain Management in our Emergency/Acute Care Facility Our staff understands that pain relief is important when someone is hurt or needs emergency care. However, providing ongoing pain relief is often complex. We recommend this be done through your primary health care provider such as your family doctor or paint maker. Because mistakes or misuses of pain medication [...] show a valid photo ID (like a clark driver's license) when you check into the [...] or other controlled substance, we check the [place] Automated Rx Reporting system (OARRS) or a [...] or call the Crisis Intervention Center of [facility] at [phone]. It is against the law to attempt to obtain controlled substance pain medicines by deceiving the health care provider caring for you. This can include getting multiple prescriptions from more than oneprovider or using someone else s name to obtain a prescription. Follow Up Care 08/15/2022 15:50:06 With:ALEENA LONDON MD Address: [address] [place] [phone] When:2-4 days [facility] 03-27-2023 Note Discharge Instructions Thank you for allowing [facility] to assist you with your healthcare needs. The following is importantdischarge information regarding your hospital visit. Diagnosis from Today's Visit Lower leg pain-swelling What to Do Next Instructions from Your Care Team No qualifying data available. Post Acute Orders No qualifying data available. You Need to Schedule the Following Appointments Follow Up with ALEENA LONDON MD When Within 2-4 days Where: [place] [address]- [phone] Allergies Latex (Rash) penicillin (Rash) Medications Please [...] such as your family doctor or paint maker. Because mistakes or misuses of pain medication [...] show a valid photo ID (like a clark driver's license) when you check into the [...] or other controlled substance, we check the [place] Automated Rx Reporting system (OARRS) or a [...] or call the Crisis Intervention Center of [facility] at [phone]. It is against the law to attempt [...] to receive it can visit one of [facility] vaccine clinics. There are many vaccine clinic locations within the [facility]. For locations and available times, please visit [email or web address] It is important to note that some COVID mobile vaccine clinics are held outdoors and may be canceled in rainy or stormy conditions. To learn more about pediatric vaccinations (ages 5-11), we invite you to visit the [facility] webpage. [email or web address] learn more about the COVID-19 vaccine, we invite you to visit the CDC website for a list of frequently asked questions. https://www.cdc.gov/coronavirus/2019-ncov/vaccines/faq.html [facility] Access Instructions: Stay connected with your healthcare team and access your personal medical information anytime with the [facility] Patient Portal. If you would like a full copy of your medical records please contact the [facility] Medical Records Department Monday through Monday between 8a.m. and 4:30p.m. Please follow the directions below to access the portal: 1.Access the email account you provided upon registration to the [facility].2.Look for an invitation email from [facility].3.Open the email and access the invitation link: Accept Invitation to [facility]4.Fill in the required still to create your account. Sign into www.[employer] with your username and password that you [...] you will allow to register on the [facility] Patient Portal for access to your information. You can also access the [facility] Patient Portal on the [employer] deidre. Simply click on "Health Records" under "HealthData" and then click on the [employer] logo. HOW TO SAFELY DISPOSE OF PRESCRIPTION [...] Call your local pharmacy or go to http://bit.Crono/2K2Xw0i to find one close to you.3.Make use of household items: Use cat litter or old coffee grounds to dispose medications if other options arenot available. Mix your drugs with these household products, seal them in an airtight container andthrow it into the garbage. Call [facility]: [phone] to be sure your drugs can be [...] and explained to me and I,LANA RIVERA M understand my current condition and have read and understand these discharge instructions. I have received a written copy of the plan/instructions. If I have questions, I am aware that I should contact my doctor. Patient/Automatic Pilot Mechanic Signature: Date/Time: Relationship to Patient: Witness Name/Signature: Date/Time: [facility]08-12-2021 History of Present illness Narrative * Myrna [...] IV DATA: Not applicable SIGNED BY: RT Bhumi(R) December 31, 2020 1:01 PM [facility] History of Present illness Narrative* Zully Arana (Madhavi)Madhavi - 06/25/2020 3:40 PM EST Radiology Service [...] 25, 2020 3:44 PM [facility] History of Past illness Narrative* Problem [...] of this encounter (statuses as of 02/03/2023) [facility] History of Past illness Narrative* Problem [...] of this encounter (statuses as of 07/08/2023) [facility] of Past illness Narrative* Problem [...] of this encounter (statuses as of 08/30/2023) [facility]. Jacobs [facility] June 10, 2022 11:20am Note Date/Time June 10, 2022 9 :38am [facility] Medical Records Department [address] [facility] [place] [address] Emergency Department Summary 06/10/22 MR#: [id number] Acct: [id number] Name: LANA RIVERA Rep #:[id number] : 1985 37 From: Sorin Jacobs MD [...] return to the emergency room with imaging. [facility] Medical History Abdominal pain Acute bronchitis, [...] % (Auto) 56.4 Lymph % (Auto) 26.4 [place] % (Auto) 8.3 Eos % (Auto) 8.0 [...] your Primary Care Provider. Call [facility] ([phone]) or report to the closest Emergency Room. Call 911 if necessary. 06/10/22 1120 <Electronically signed by Sorin Jacobs MD> Cosigner Signature (if applicable): CC: Dr. Aleena London MD ~ Signed [facility] Work Phone: Discharge summary Author Yusuf Apple [facility] February 14, 2023 7:59am Note Date/Time February 14, 2023 7:56am [facility] Medical Records Department [address] [place] [address] Instructions for Home/Discharge Instructions 02/14/23 0756 MR#: [id number] Acct: [id number] Name: LANA RIVERA Rep #:[id number] : 1985 37 From: Yusuf Apple DO PCP: Dr. Aleena London MD Status:R [facility] Discharge Instructions Diet Discharge Diet: No restrictions [...] % cream with perineal applicator 1 applic ID [id number] PRN (Reason: itching) Qty: 30 2RF [...] CC: Dr. Aleena London MD ~ Signed [facility] Work Phone: Discharge summary Author Ry Enamorado [facility] May 04, 2023 1:14pm Note Date/Time May 04, 2023 1:06pm [facility] Medical Records Department [address] [place] [address] Emergency Department Summary 05/04/23 MR#: [id number] Acct: [id number] Name: LANA RIVERA Rep #:[id number] : 1985 38 From: Ry Enamorado MD [...] sclera of her right eye. Saw her end finder twisting department at [facility] told her it was a subconjunctival [...] history: nano [facility] ED ROS Narrative Denies recent illness. Review [...] your Primary Care Provider. Call [facility] ([phone]) or report to the closest Emergency Room. Call 911 if necessary. 05/04/23 1314 <Electronically signed by Ry Enamorado MD> Cosigner Signature (if applicable): CC: Dr. Aleena London MD ~ Signed [facility] Work Phone: Evaluation + Plan note No data available for this section [facility] Evaluation note* Diagnosis Onset Date Resolution Status [...] abdominal pain acute Tinnitus acute Vertigo acute [facility] Work Phone: Evaluation note* Diagnosis Onset Date [...] (nonalcoholic steatohepatitis) acute Chronic RUQ pain chronic [facility] Work Phone: Evaluation note* Diagnosis Onset Date [...] Palpitations acute Menorrhagia with irregular cycle acute [facility] Work Phone: Evaluation note* Diagnosis Onset Date [...] acute 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 [facility] Work Phone: Evaluation note* Diagnosis Onset Date [...] Irritant contact dermatitis due to plant acute [facility] Work Phone: Evaluation note* Diagnosis Onset Date [...] upper extremities chronic Vitamin d deficiency chronic [facility] Work Phone: Evaluation note* Diagnosis Onset Date [...] deficiency chronic Menorrhagia with irregular cycle acute [facility] Work Phone: Evaluation note* Diagnosis Onset Date [...] (nonalcoholic steatohepatitis) acute Chronic RUQ pain chronic [facility] Work Phone: Evaluation note* Diagnosis Onset Date [...] (nonalcoholic steatohepatitis) acute Chronic RUQ pain chronic [facility] Work Phone: Evaluation note* Diagnosis Onset Date [...] Menorrhagia with irregular cycle acute Almaz's thyroiditis junior copywriter sarai Metabolic syndrome chronic NAFLD (nonalcoholic fatty liver disease) acute Obesity acute Fibromyalgia affecting multiple sites acute Meralgia paresthetica of left side acute Sciatica, right side acute Strain of lumbar region acut e Low back pain chronic [facility] Work Phone: Evaluation note* Diagnosis Onset Date [...] Menorrhagia with irregular cycle acute Almaz's thyroiditis junior copywriter sarai Metabolic syndrome chronic NAFLD (nonalcoholic fatty liver disease) acute Obesity acute Fibromyalgia affecting multiple sites acute Meralgia paresthetica of left side acute Sciatica, right side acute Strain of lumbar region acut e Low back pain chronic Chronic low back pain noneac tive Fibromyalgia noneactive [facility] Work Phone: Evaluation note* Diagnosis Onset Date Resolution Status Menorrhagia with irregular cycle acute Early satiety acute MARCELINO (nonalcoholic steatohepatitis) acute Chronic RUQ pain resolved Type 2 diabetes mellitus acu te Essential hypertension chron ic Localized swelling, mass and lump, neck resolved Obesity resolved Menorrhagia with irregular cycle acute Almaz's thyroiditis junior copywriter sarai Metabolic syndrome chronic NAFLD (nonalcoholic fatty [...] syndrome chronic PCOS (polycystic ovarian syndrome) chronic [facility] Work Phone: Evaluation note* Diagnosis Onset Date Resolution Status Menorrhagia with irregular cycle acute Early satiety acute MARCELINO (nonalcoholic steatohepatitis) acute Chronic RUQ pain resolved Type 2 diabetes mellitus acu te Essential hypertension chron ic Localized swelling, mass and lump, neck resolved Obesity resolved Menorrhagia with irregular cycle acute Almaz's thyroiditis junior copywriter sarai Metabolic syndrome chronic NAFLD (nonalcoholic fatty [...] acute Postoperative pain acute Urinary hesitancy acute [facility] Work Phone: Evaluation note* Diagnosis Onset Date Resolution Status Menorrhagia with irregular cycle acute Early satiety acute MARCELINO (nonalcoholic steatohepatitis) acute Chronic RUQ pain resolved Type 2 diabetes mellitus acu te Essential hypertension chron ic Localized swelling, mass and lump, neck resolved Obesity resolved Menorrhagia with irregular cycle acute Almaz's thyroiditis junior copywriter sarai Metabolic syndrome chronic NAFLD (nonalcoholic fatty [...] pain chronic Hypertension chronic Tobacco abuse chronic [facility] Work Phone: Evaluation note* Diagnosis Onset Date Resolution Status Early satiety acute MARCELINO (nonalcoholic steatohepatitis) acute Chronic RUQ pain resolved Type 2 diabetes mellitus acu te Localized swelling, mass and lump, neck resolved Obesity resolved Almaz's thyroiditis junior copywriter sarai Metabolic syndrome chronic Menorrhagia with irregular [...] disorder with panic attacks chronic Almaz's thyroiditis junior copywriter sarai Hypertension chronic Metabolic syndrome chronic PCOS (polycystic ovarian syndrome) chronic Personal history of malignant melanoma chronic Tobacco abuse chronic Abdominal pain resolved Chest pain resolved History of hypertension reso lved [facility] Work Phone: Evaluation note* Diagnosis Onset Date Resolution Status Type 2 diabetes mellitus acu te Localized swelling, mass and lump, neck resolved Obesity resolved Almaz's thyroiditis junior copywriter sarai Metabolic syndrome chronic Menorrhagia with irregular [...] disorder with panic attacks chronic Almaz's thyroiditis junior copywriter sarai Hypertension chronic Metabolic syndrome chronic PCOS (polycystic ovarian syndrome) chronic Personal history of malignant melanoma chronic Tobacco abuse chronic Abdominal pain resolved Chest pain resolved History of hypertension reso lved Postoperative abscess acute Postoperative abscess acute Postoperative pain acute S/P vaginal hysterectomy acu te [facility] Work Phone: Evaluation note* Diagnosis Onset Date Resolution Status Almaz's thyroiditis junior copywriter sarai Metabolic syndrome chronic Menorrhagia with irregular [...] disorder with panic attacks chronic Almaz's thyroiditis junior copywriter sarai Hypertension chronic Metabolic syndrome chronic PCOS (polycystic ovarian syndrome) chronic Personal history of malignant melanoma chronic Tobacco abuse chronic Abdominal pain resolved Chest pain resolved History of hypertension reso lved Postoperative abscess acute Postoperative abscess acute Postoperative pain acute S/P vaginal hysterectomy acu te Nicotine dependence, cigarettes, uncomplicated resolved Ovarian cyst acute Postoperative abscess acute Postoperative pain acute Almaz's thyroiditis junior copywriter sarai Hypertension chronic Vitamin d deficiency chronic Fatigue noneactive Varicose vein of leg noneact jimmie [facility] Work Phone: Evaluation note* Diagnosis Onset Date [...] disorder with panic attacks chronic Almaz's thyroiditis junior copywriter sarai Hypertension chronic Metabolic syndrome chronic PCOS (polycystic ovarian syndrome) chronic Personal history of malignant melanoma chronic Tobacco abuse chronic Abdominal pain resolved Chest pain resolved History of hypertension reso lved Postoperative abscess acute Postoperative abscess acute Postoperative pain acute S/P vaginal hysterectomy acu te Nicotine dependence, cigarettes, uncomplicated resolved Ovarian cyst acute Postoperative abscess acute Postoperative pain acute Almaz's thyroiditis junior copywriter sarai Hypertension chronic Vitamin d deficiency chronic Fatigue noneactive Varicose vein of leg noneact jimmie Ovarian cyst acute Acute bronchitis noneactive [facility] Work Phone: Evaluation note* Diagnosis Onset Date [...] disorder with panic attacks chronic Almaz's thyroiditis junior copywriter sarai Hypertension chronic Metabolic syndrome chronic PCOS (polycystic ovarian syndrome) chronic Personal history of malignant melanoma chronic Tobacco abuse chronic Abdominal pain resolved Chest pain resolved History of hypertension reso lved Postoperative abscess acute Postoperative abscess acute Postoperative pain acute S/P vaginal hysterectomy acu te Nicotine dependence, cigarettes, uncomplicated resolved Ovarian cyst acute Postoperative abscess acute Postoperative pain acute Almaz's thyroiditis junior copywriter sarai Hypertension chronic Vitamin d deficiency chronic Fatigue noneactive Varicose vein of leg noneact jimmie Ovarian cyst acute Acute bronchitis noneactive NAFLD (nonalcoholic fatty liver disease) chronic RUQ abdominal pain chronic [facility] Work Phone: Evaluation note* Diagnosis Onset Date Resolution Status Postoperative pain acute Urinary hesitancy resolved Class II obesity acute Fibromyalgia affecting multiple sites acute MARCELINO (nonalcoholic steatohepatitis) acute Postoperative abscess acute Postoperative pain acute S/P vaginal hysterectomy acu te Sciatica, right side acute Type 2 diabetes mellitus acu te Chronic back pain chronic 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 Almaz's thyroiditis junior copywriter sarai Hypertension chronic Metabolic syndrome chronic PCOS (polycystic ovarian syndrome) chronic Personal history of malignant melanoma chronic Tobacco abuse chronic Abdominal pain resolved Chest pain resolved History of hypertension reso lved Postoperative abscess acute Postoperative abscess acute Postoperative pain acute S/P vaginal hysterectomy acu te Nicotine dependence, cigarettes, uncomplicated resolved Ovarian cyst acute Postoperative abscess acute Postoperative pain acute Almaz's thyroiditis junior copywriter sarai Hypertension chronic Vitamin d deficiency chronic Fatigue noneactive Varicose vein of leg noneact jimmie Ovarian cyst acute Acute bronchitis noneactive NAFLD (nonalcoholic fatty liver disease) chronic RUQ abdominal pain chronic [facility] Work Phone: Evaluation note* Diagnosis Onset Date Resolution Status Ovarian cyst acute Acute bronchitis noneactive NAFLD (nonalcoholic fatty liver disease) chronic RUQ abdominal pain chronic Pectoralis muscle strain non eactive Cough acute Anxiety and depression chron ic Hypertension chronic Left shoulder pain chronic Left shoulder pain chronic [facility] Work Phone: Evaluation note* Diagnosis Onset Date Resolution Status NAFLD (nonalcoholic fatty liver disease) chronic RUQ abdominal pain chronic Pectoralis muscle strain non eactive Cough acute Anxiety and depression chron ic Hypertension chronic Left shoulder pain chronic Left shoulder pain chronic Carpal tunnel syndrome of right wrist noneactive [facility] Work Phone: Evaluation note* Diagnosis Onset Date Resolution Status Pectoralis muscle strain non eactive Cough acute Anxiety and depression chron ic Hypertension chronic Left shoulder pain chronic Left shoulder pain chronic Carpal tunnel syndrome of right wrist noneactive Carpal tunnel syndrome of right wrist noneactive [facility] Work Phone: Evaluation note* Diagnosis Onset Date Resolution Status Pectoralis muscle strain non eactive Cough acute Anxiety and depression chron ic Hypertension chronic Left shoulder pain chronic Left shoulder pain chronic Carpal tunnel syndrome of right wrist noneactive Carpal tunnel syndrome of right wrist noneactive NAFLD (nonalcoholic fatty liver disease) chronic RUQ abdominal pain chronic [facility] Work Phone: Evaluation note* Diagnosis Onset Date [...] e Possible exposure to STD non eactive [facility] Work Phone: Evaluation note* Diagnosis Onset Date [...] e Possible exposure to STD non eactive [facility] Work Phone: Evaluation note* Diagnosis Onset Date [...] Anxiety and depression chron ic Hypertension chronic [facility] Work Phone: Evaluation note* Diagnosis Onset Date [...] left acute Lumbar facet joint syndrome acute [facility] Work Phone: Evaluation note* Diagnosis Onset Date [...] viral diseases acute Acute sinusitis, unspecified resolved [facility] Work Phone: Evaluation note* Diagnosis Onset Date [...] Acute sinusitis, unspecified resolved Orthopedic aftercare acute [facility] Work Phone: Evaluation note* Diagnosis Onset Date [...] Acute sinusitis, unspecified resolved Orthopedic aftercare acute [facility] Work Phone: Evaluation note* Diagnosis Onset Date [...] Orthopedic aftercare acute Climacteric acute Mastalgia acute [facility] Work Phone: Evaluation note* Diagnosis Onset Date [...] Orthopedic aftercare acute Climacteric acute Mastalgia acute [facility] Work Phone: Evaluation note* Diagnosis Onset Date [...] liver disease) chronic RUQ abdominal pain chronic [facility] Work Phone: Evaluation note* Diagnosis Pelvic pain in female- Primary Unspecified symptom associated with female genital organs [facility] Diagnosis Onset Date Resolution Status [...] acu te Pelvic pain acute Vaginitis acute [facility] Work Phone: Evaluation note* Diagnosis Onset Date [...] acu te Pelvic pain acute Vaginitis acute [facility] Work Phone: Evaluation note* Diagnosis NO SHOW- Primary [facility] Diagnosis Onset Date Resolution Status [...] chronic RUQ abdominal pain chronic Vaginitis acute [facility] Work Phone: Evaluation note* Diagnosis Onset Date [...] chronic Vaginitis acute Class II obesity chronic [facility] Work Phone: Evaluation note* Diagnosis Onset Date [...] Acute pharyngitis acute Breast pain, right acute [facility] Work Phone: Evaluation note* Diagnosis Pain- Primary Generalized pain documented in this encounter [facility] note* Diagnosis Preoperative examination- Primary Preoperative examination, [...] of left shoulder documented in this encounter [facility] note* Diagnosis Preoperative examination- Primary Preoperative examination, [...] acute or chronic [facility] Diagnosis Onset Date Resolution Status Dermatitis [...] liver disease) chronic RUQ abdominal pain chronic [facility] Work Phone: Evaluation note* Diagnosis Plantar fasciitis- Primary Plantar fascial fibromatosis [facility] Author Yusuf Apple [facility] February 14, 2023 7:11am Note Date/Time February 14, 2023 7:11am [facility] Medical Records Department [address] [place], [place] [address] [place] [address] History & Physical Exam 02/14/23 0711 MR#: [id number] Acct: [id number] Name: LANA RIVERA Rep #:[id number] : 1985 37 From: Yusuf Apple DO PCP: Dr. Aleena London MD Status:[facility] Location: [place] [address] History and Physical Date of Admission: 02/14/23 [facility] [address] [place] [address] [address] [place] [address] OFFICE VISIT Date of Service: 11/18/22 MR#: [id number] Acct: [id number] Name: LANA RIVERA Rep #: [id number] : 1985 Provider: Dr. Yusuf Apple DO Age/Sex: 37/F Location: [facility] Status: Signed Intake Vital Signs 09/02/2309:43 11/09/2315:37 [...] Headachedicyclomine [From Bentyl] Adverse Reaction (Unknown, Verified 06/30/23 10:13) Unknownhydrocodone [From Vicodin] Adverse Reaction (Verified [...] for f/u after having [facility]. Pt. states that her pain and numbness [...] London MD; Dr. Yusuf Apple DO~ Signed [facility] Work Phone: [facility] Work Phone: Hospital Discharge instructions Additional Instructions Do not take your cyclobenzaprine. Take Valium as prescribed as needed. Start your Cymbalta as prescribed by your pain doctor. Start your steroids a report is at the pharmacy. We discussed with Dr. Avilez for possible tramadol as he noted on his consult if needed. Follow- up with your doctors.[facility] Work Phone: Hospital Discharge instructions Additional Instructions Please follow-up outpatient.[facility] Work Phone: Hospital Discharge instructions Additional Instructions Follow-up with Dr. Tracy and your manual qa tester.[facility] Work Phone: Hospital Discharge instructions Additional Instructions Today your cardiac work-up was normal. Based on your examination I think you have musculoskeletal pain in the trapezius and shoulder area and prescribed a different muscle relaxer you can try. You can also add Tylenol 1000 mg every 6 hours to your regimen of ketoprofen. Please follow-up with your primary care doctor.[facility] Work Phone: Hospital Discharge instructions Additional Instructions UpPlease follow-up with your PRODUCE DEPARTMENT SUPERVISOR for this pain. Lives at antibiotic ointment to the open wounds in your left groin. I we have referred you to general surgery for further evaluation of these lymph nodes and pain in your thigh. You can continue to take your anti-inflammatory (ketoprofen) for pain. Apply cool compresses to the area.[facility] Work Phone: Hospital Discharge instructions Additional Instructions [...] discuss further pain management. You can try [id number] 4% exercise Lidoderm patches. Please continue to follow-up with your outpatient ultrasound for your lymph nodes and with surgery as well. I would recommend that you follow-up with your recruitment officer. I will give you information for a spine doctor in case this pain is actually coming from your back.[facility] Work Phone: Hospital Discharge instructions Additional Instructions Take baby aspirin every day along with warm/hot compresses to affected area 2-3 times daily until pain resolved.[facility] Work Phone: Hospital Discharge instructions Additional Instructions This should improve over the next week.[facility] Work Phone: Reason for referral (narrative)* Diagnostic Procedure Only (Routine) - Authorized Specialty Diagnoses / Procedures Referred By Elaina wyman Referred To Contact XR IMAGING Diagnoses Pain Procedures XR FOOT GENERAL 3V AP/LAT/OBL RIGHT RADEX FOOT COMPLETE MINIMUM 3 VIEWS Patrick Fontaine [address] [place] [address] [place] [address] Referral ID Status Reason Start Date Expiration Date Visits Requested Visits Authorized [id number] Authorized Auto-Generat ed Referral 11/20/2023 12/19/2024 1 1 [facility] for referral (narrative)* Diagnostic Procedure Only (Urgent) - Closed Specialty Diagnoses / Procedures Referred By Contac t Referred To Contact XR IMAGING Diagnoses Acute pain of left shoulder Procedures XR SHOULDER GENERAL 3V OR MORE AP/TRUE AP/OTHER LT X-RAY SHOULDER COMPLET MIN 2 VIEWS Kavita Jurado PA-C [address] [place] [address] [place] [address] Referral ID Status Reason Start Date Expiration Date V isits Requested Visits Authorized Closed Auto-Generate d Referral 12/31/2020 01/30/2022 1 1 [facility] for visit Narrative* Diagnostic Procedure Only (Urgent) - Closed Specialty Diagnoses / Procedures Referred By Contac t Referred To Contact XR IMAGING Diagnoses Acute pain of left shoulder Procedures XR SHOULDER GENERAL 3V OR MORE AP/TRUE AP/OTHER LT X-RAY SHOULDER COMPLET MIN 2 VIEWS Kavita Jurado PA-C [address] [place] [address] [place] [address] Referral ID Status Reason Start Date Expiration Date V isits Requested Visits Authorized Closed Auto-Generate d Referral 12/31/2020 01/30/2022 1 1 [facility] Summary Purpose Family History No Family [...] No August 20, 2021 3:48pm Power of Electrical Electronics Technician No August 20 3:48pm Advance Directive Response Recorded Date/ Time Advance Directives No June 29, 2021 12:31pm Living Will No August 25, 2021 10:11pm Power of Electrical Electronics Technician No August 25 10:11pm Advance Directive Response Recorded Date/ Time Advance Directives No June 29, 2021 12:31pm Living Will No November 27, 2021 1 :20am Power of Electrical Electronics Technician No November 27, 2021 1:20am Advance Directive Response Recorded Date/ Time Advance Directives No December 14 10:42am Living Will No December 23, 2021 10:29pm Power of Electrical Electronics Technician No December 23 10:29pm Advance Directive Response Recorded Date/ Time Advance Directives No December 24 9:47am Living Will No December 24, 2021 9:47am Power of Electrical Electronics Technician No December 24 9:47am Advance Directive Response Recorded Date/ Time Advance Directives No December 24 9:47am Living Will No February 15, 2022 11:42am Power of Electrical Electronics Technician No January 11:42am Advance Directive Response Recorded Date/ Time Advance Directives No December 24 9:47am Living Will No March 04 2:10pm Power of Electrical Electronics Technician No March 04, 2022 2:10pm Advance Directive Response Recorded Date/ Time Advance Directives No December 24 9:47am Living Will No March 12 12:40pm Power of Electrical Electronics Technician No March 12, 2022 12:40pm Advance Directive Response Recorded Date/ Time Advance Directives No December 24 9:47am Living Will No March 22 5:41pm Power of Electrical Electronics Technician No March 22, 2022 5:41pm Advance Directive Response Recorded Date/ Time Advance Directives No December 24 8:47am Living Will No March 30 3:11pm Power of Electrical Electronics Technician No March 30, 2022 3:11pm Advance Directive Response Recorded Date/ Time Advance Directives No December 24 8:47am Living Will No April 12 4:52pm Power of Electrical Electronics Technician No April 12, 2022 4:52pm Advance Directive Response Recorded Date/ Time Advance Directives No December 24 8:47am Living Will No April 12 8:56pm Power of Electrical Electronics Technician No April 12, 2022 8:56pm Advance Directive Response Recorded Date/ Time Advance Directives No December 24 8:47am Living Will No April 18 5:38pm Power of Electrical Electronics Technician No April 18, 2022 5:38pm Advance Directive Response Recorded Date/ Time Advance Directives No December 24 8:47am Living Will No May 22 11:57pm Power of Electrical Electronics Technician No May 22 11:57pm Advance Directive Response Recorded Date/ Time Advance Directives No December 24 8:47am Living Will No June 10 9:17am Power of Electrical Electronics Technician No June 10, 2022 9:17am Advance Directive Response Recorded Date/ Time Advance Directives No December 24 8:47am Living Will No July 17 7:06pm Power of Electrical Electronics Technician No July 17, 2022 7:06pm Advance Directive Response Recorded Date/ Time Advance Directives No December 24 9:47am Living Will No July 17 8:06pm Power of Electrical Electronics Technician No July 17, 2022 8:06pm Advance Directive Response Recorded Date/ Time Advance Directives No December 24 9:47am Living Will No August 26, 2022 3:23pm Power of Electrical Electronics Technician No August 26 3:23pm Advance Directive Response Recorded Date/ Time Advance Directives No December 24 9:47am Living Will No November 08, 2022 4:52pm Power of Electrical Electronics Technician No November 08 4:52pm Advance Directive Response Recorded Date/ Time Advance Directives No December 24 9:47am Living Will No November 19, 2022 9 :51pm Power of Electrical Electronics Technician No November 19, 2022 9:51pm Advance Directive Response Recorded Date/ Time Advance Directives No November 24 2:09pm Living Will No November 25, 2022 2 :14pm Power of Electrical Electronics Technician No November 25, 2022 2:14pm Advance Directive Response Recorded Date/ Time Advance Directives No December 13 10:51am Living Will No December 13, 2022 10:51am Power of Electrical Electronics Technician No December 13 10:51am Advance Directive Response Recorded Date/ Time Advance Directives No December 13 10:51am Living Will No December 25, 2022 1:19pm Power of Electrical Electronics Technician No December 25 1:19pm Advance Directive Response Recorded Date/ Time Advance Directives No December 13 10:51am Living Will No February 04, 2023 7:53pm Power of Electrical Electronics Technician No January 7:53pm Advance Directive Response Recorded Date/ Time Advance Directives No December 13 10:51am Living Will No February 08, 2023 6:47pm Power of Electrical Electronics Technician No January 6:47pm Advance Directive Response Recorded Date/ Time Advance Directives No January 10:58am Living Will No February 10, 2023 10:58am Power of Electrical Electronics Technician No January 10:58am Advance Directive Response Recorded Date/ Time Advance Directives No March 16, 2023 7:15am Living Will No March 16 7:15am Power of Electrical Electronics Technician No March 16, 2023 7:15am Advance Directive Response Recorded Date/ Time Advance Directives No March 16, 2023 7:15am Living Will No April 17, 023 4:04pm Power of Electrical Electronics Technician No April 17, 2023 4:04pm Advance Directive Response Recorded Date/ Time Advance Directives No March 16, 2023 7:15am Living Will No May 04, 023 12:57pm Power of Electrical Electronics Technician No May 04, 2023 12:57pm Advance Directive Response Recorded Date/ Time Advance Directives No March 16, 2023 7:15am Living Will No July 18 10:49pm Power of Electrical Electronics Technician No July 18, 2023 10:49pm Advance Directive Response Recorded Date/ Time Advance Directives No March 16, 2023 7:15am Living Will No July 25, 2023 8:51pm Power of Electrical Electronics Technician No July 24 8:51pm Advance Directive Response Recorded Date/ Time Advance Directives No August 07, 024 8:42am Living Will No August 08, 2023 8:42am Power of Electrical Electronics Technician No August 07 8:42am Advance Directive Response Recorded Date/ Time Advance Directives No March 16, 2023 8:15am Living Will No July 25, 2023 9:51pm Power of Electrical Electronics Technician No July 24 9:51pm Advance Directive Response Recorded Date/ Time Advance Directives No March 16, 2023 8:15am Living Will No September 08, 2023 10:23am Power of Electrical Electronics Technician No September 07 10:23am Advance Directive Response Recorded Date/ Time Advance Directives No March 16, 2023 8:15am Living Will No September 29, 2023 3 :36pm Power of Electrical Electronics Technician No September 29, 2023 3:36pm Chief Complaint and Reason for Visit Chief Complaint Back Pain, Fall 2 M FU PHONE-COLD SYMPTOMS COVID TEST bp issues 6-8 WK F/UP RUQ PAIN abd pain anxiety /insomnia enlarged liver & spleen FATTY LIVER CP/ANXIETY/REF. OHVP boil inner thigh PALPS HTN CHEST PAIN CERVICAL/ RX HERE Annual (IMPLEMENTATION COORDINATOR) 6 WK FU DIZZY SPELLS ABD PAIN [...] HTN CHEST PAIN CERVICAL/ RX HERE Annual (IMPLEMENTATION COORDINATOR) 6 WK FU DIZZY SPELLS ABD PAIN [...] HTN CHEST PAIN CERVICAL/ RX HERE Annual (IMPLEMENTATION COORDINATOR) 6 WK FU DIZZY SPELLS ABD PAIN [...] inner thigh PALPS HTN CHEST PAIN Annual (IMPLEMENTATION COORDINATOR) 6 WK FU DIZZY SPELLS ABD PAIN neck pain CHEST CONGESTION/COUGH consult ablation ER FU fluid in ears AUB CP/[facility] CERVICAL/ RX HERE 1 MO FU [...] inner thigh PALPS HTN CHEST PAIN Annual (IMPLEMENTATION COORDINATOR) 6 WK FU DIZZY SPELLS ABD PAIN neck pain CHEST CONGESTION/COUGH consult ablation ER FU fluid in ears AUB CP/[facility] CERVICAL/ RX HERE 1 MO FU [...] inner thigh PALPS HTN CHEST PAIN Annual (IMPLEMENTATION COORDINATOR) 6 WK FU DIZZY SPELLS ABD PAIN neck pain CHEST CONGESTION/COUGH consult ablation ER FU fluid in ears AUB CP/[facility] CERVICAL/ RX HERE 1 MO FU [...] Almaz's thyroiditis Irritant contact dermatitis due to transplanter Complaint Annual (IMPLEMENTATION COORDINATOR) 6 WK FU DIZZY SPELLS ABD PAIN neck pain CHEST CONGESTION/COUGH consult ablation ER FU fluid in ears AUB CP/[facility] CERVICAL/ RX HERE 1 MO FU [...] ablation ER FU fluid in ears AUB /[facility] CERVICAL/ RX HERE 1 MO FU [...] Complaint ER FU fluid in ears AUB /[facility] CERVICAL/ RX HERE 1 MO FU [...] pain Chief Complaint fluid in ears AUB /[facility] CERVICAL/ RX HERE 1 MO FU [...] Referred By Elaina wyman Referred To Contact Tack Maker Diagnoses Pelvic pain in female Procedures CONSULT TO GYNECOLOGY Lukasz Eubanks MD [address] [facility] [address] [place] [address] Fatmata England DO [address] [place] [address] Referral ID Status Reason Start Date Expiration Date Visits Requested Visits Authorized [id number] Ref Not Required PCP Requested Referral 11/17/2022 11/16/2023 1 1 Additional Source Comments INFORMATION SOURCE (unrecogn ized section and content) DATE CREATED AUTHOR 11/15/2017 [facility] DATE CREATED AUTHOR AUTHOR'S ORGANIZ ATION 11/29/2017 [facility] DATE CREATED AUTHOR AUTHOR'S ORGANIZ ATION 07/07/2022 [facility] DATE CREATED AUTHOR AUTHOR'S ORGANIZ ATION 07/21/2022 [facility] DATE CREATED AUTHOR AUTHOR'S ORGANIZ ATION 10/11/2022 [facility] ([place]) DATE CREATED AUTHOR AUTHOR'S ORGANIZ ATION 04/14/2023 [facility] DATE CREATED AUTHOR AUTHOR'S ORGANIZ ATION 07/09/2023 [facility] DATE CREATED AUTHOR AUTHOR'S ORGANIZ ATION 08/30/2023 [facility] DATE CREATED AUTHOR AUTHOR'S ORGANIZ ATION 06/26/2024 [facility] DATE CREATED AUTHOR AUTHOR'S ORGANIZ ATION 11/06/2024 [facility] DATE CREATED AUTHOR AUTHOR'S ORGANIZ ATION 04/03/2025 [facility] Goals (unrecognized section and content) [...] Provider, Refer ring Provider Active Rea Poon MONKEY TRAINER, MONKEY TRAINER-C Attending Provider Active Team Status: Inactive Member [...] Provider, Refer ring Provider Active Libertad Stubbs MONKEY TRAINER, MONKEY TRAINER-C Attending Provider Active Team Status: Active Member [...] MD Primary Care Provider Active Rea Poon MONKEY TRAINER, MONKEY TRAINER-C Attending Provider, Referrin g Provider Active Dr. [...] MD Primary Care Provider Active Rea Poon MONKEY TRAINER, MONKEY TRAINER-C Attending Provider Active Team Status: Inactive Member [...] MD Primary Care Provider Active Rea Poon MONKEY TRAINER, MONKEY TRAINER-C Attending Provider Active Team Status: Inactive Member Role Status Dates Dr. Aleena London MD Primary Care Provider, Refer ring Provider Active Hanh Balderas MONKEY TRAINER, MONKEY TRAINER-C Attending Provider Active Team Status: Inactive Member Role Status Dates Dr. Aleena London MD Primary Care Provider, Refer ring Provider Active Deysi Mcfarlane MONKEY TRAINER, MONKEY TRAINER-C Attending Provider Active Team Status: Active Member [...] Inactive Member Role Status Dates Dr. Aleena Londno MD Primary Care Provider Active Dr. Dimple [...] MD Primary Care Provider Active Hanh Balderas MONKEY TRAINER, MONKEY TRAINER-C Attending Provider, Referring Provider Active Team Status: Inactive Member Role Status Dates Dr. Aleena London MD Primary Care Provider Active Dr. Ry Enamorado MD Emergency Provider Active Statistician Relationship Specialty Start Date End Date Dimple Lynn [address] [facility] [address] [place] [address] PRODUCE DEPARTMENT SUPERVISOR 12/15/22 Team Status: Inactive Member Role Status [...] Dr. Greg Melgar DO Referring Provider Active Statistician Relationship Specialty Start Date End Date Nima Kaur MD [address] [place] [address] PCP - General Family Medicine 04/30/13 02/01/23 [...] MD Attending Provider, Referrin g Provider Active Statistician Relationship Specialty Start Date End Date Aleena London [address] [place] [address] PCP - General 07/27/23 Dimple Lynn [address] [place] [address] Tack Maker 12/15/22 Team Status: Inactive Member Role Status Dates Dr. Aleena London MD Primary Care Provider, Refer ring Provider Active Dr. Irving Lobato MD Attending Provider Active Team Status: Inactive Member Role Status Dates Dr. Aleena London MD Primary Care Provider, Refer ring Provider Active Diana Gunn NP-C Attending Provider Active Team Status: Inactive Member Role Status Dates Dr. Aleena London MD Primary Care Provider Active Dr. Oscar Fuller MD Attending Provider, Refe rring Provider Active Team Status: Active Member Role Status Dates Dr. Aleena London MD Primary Care Provider Active SRAVAN EspinalC Attending Provider, Referring Pr ovider Active Dr. [...] Dr. Aleena London MD Primary Care P rovitita, Attending Provider, Referring Provider Active Statistician Relationship Specialty Start Date End Date Aleena London [address] [place] [address] PCP - General 07/27/23 Dimple Lynn [address] [place] [address] Tack Maker 12/15/22 Statistician Relationship Specialty Start Date End Date Nima Kaur MD [address] [place] [address] PCP - General Family Medicine 04/30/13 02/01/23 Statistician Relationship Specialty Start Date End Date Nima Kaur MD [address] [place] [address] PCP - General Family Medicine 04/30/13 02/01/23 Statistician Relationship Specialty Start Date End Date Aleena London MD [address] [place], [place] [id number] PCP - General Internal Medicine 03/13/21 Source Comments (unrecognize d section and content) In the event this informatio n is protected by the Federal Confidentiality of Alcohol and Drug Abuse Patient Records regulations: The Federal rules restrict any use of the information to criminally investigate or prosecute any alcohol or drug abuse patient.[facility] the event this information is protected by the Federal Confidentiality of Alcohol and Drug Abuse Patient Records regulations: The Federal rules restrict any use of the information to criminally investigate or prosecute any alcohol or drug abuse patient.[facility] the event this information is protected by the Federal Confidentiality of Alcohol and Drug Abuse Patient Records regulations: The Federal rules restrict any use of the information to criminally investigate or prosecute any alcohol or drug abuse patient.[facility] the event this information is protected by the Federal Confidentiality of Alcohol and Drug Abuse Patient Records regulations: The Federal rules restrict any use of the information to criminally investigate or prosecute any alcohol or drug abuse patient.[facility] the event this information is protected by the Federal Confidentiality of Alcohol and Drug Abuse Patient Records regulations: The Federal rules restrict any use of the information to criminally investigate or prosecute any alcohol or drug abuse patient.[facility] the event this information is protected by the Federal Confidentiality of Alcohol and Drug Abuse Patient Records regulations: The Federal rules restrict any use of the information to criminally investigate or prosecute any alcohol or drug abuse patient.[facility] Reason for Visit (unrecogniz ed section and content) Reason Comments Patient Question Reason Onset Date Comments Referral 04/12/2023 Reason Comments New Patient Reason Comments Radiology XR Reason Comments Foot Pain Bilateral foot pain x 1 yr - pt states that she has been having pain in the front part of the heel into the arch and sometimes get "white bumps" in that area - pt states that she recently started getting "sharp shooting " pains - no trauma or injury - [...] BE BASED ON THE PRIMARY CLINICAL RECORDS. [facility]. provides no warranty or guarantee of the accuracy or completeness of information in this document.
[2025-04-12 12:00] VITALS: BP 119/76; PULSE 82; O2SAT 99
[2025-04-12 12:07] LABS: Troponin T High Sensitivity < 6 ng/L (<=14)
[2025-04-12 12:15] LABS: Anion Gap 11 (5-15); BUN 6 mg/dL (4-19); BUN/Creat Ratio 9.4 RATIO (10-20); Calcium,Total 8.9 mg/dL (7.6-11.0); Carbon Dioxide 22.8 mmol/L (21.0-32.0); Chloride 105 mmol/L (98-108); Estimated Creatinine Clearance 141.93 ml/min (50-250); Glucose 106 mg/dL (70-99); Magnesium 2.2 mg/dL (1.5-2.2); Potassium 3.8 mmol/L (3.3-5.1); Pro- Brain NATRIURETIC PEPTIDE < 36 pg/mL (<=450)
[2025-04-12] MEDS: 0.9% Normal Saline (1000mL) 1,000 ML 1000 ML IV (12:22)
[2025-04-12 13:00] VITALS: BP 111/71; PULSE 98; RESP 21; O2SAT 99
[2025-04-12 14:00] VITALS: BP 120/70; PULSE 78; RESP 16; O2SAT 99
[2025-04-12 14:05] LABS: Troponin T High Sens 2 HR < 6 ng/L (<=14)
[2025-04-12 14:55] VITALS: BP 120/70; PULSE 78; RESP 16; TEMP 36.8; O2SAT 99
== END 2025-04-12 15:10 | disposition home or self-care (01) ==
PROVIDERS: Emergency Provider Surgery; PCP Internal Medicine; Visit Provider Surgery
DX: R07.9 Chest pain, unspecified (principal); Z86.718 Personal history of other venous thrombosis and embolism; R00.2 Palpitations; I10 Essential (primary) hypertension; R06.02 Shortness of breath; F17.200 Nicotine dependence, unspecified, uncomplicated; Z79.890 Hormone replacement therapy; E06.3 Autoimmune thyroiditis; E03.9 Hypothyroidism, unspecified
CPT/HCPCS: 71046; 71275; 80048; 83735; 83880; 84439; 84443; 84484; 85025; 85379; 87631; 93005; 96360; 99283; Q9967; A4216

== ENCOUNTER → 2025-04-13 | Outpatient (CLI) | payer MEDICAID, SELFPAY ==
--- NOTE | 2025-04-13 11:46 | VDLE_ITS ---
Reason For Study Reason For Study: ELEVATED D-DIMER (0.55 on 04/13/25) RIGHT LEFT RT SFJ S/P LIGATION GSV is normal. RT GSV S/P VENOSEAL CFV is compressible, spontaneous, phasic, competent, CFV & FV are partially compressible with bright and demonstrates normal augmentation. intraluminal echoes consistent with Chronic DVT. FV is compressible, spontaneous, phasic, competent POP V is compressible, spontaneous, phasic, competent and demonstrates normal augmentation. and demonstrates normal augmentation. POP V is compressible, spontaneous, phasic, competent T/P Trunk is compressible. and demonstrates normal augmentation. PTV is compressible. T/P Trunk is compressible. RT PerV is compressible. PTV is compressible. Procedure LT PerV is compressible. This is a venous duplex using B-mode, color flow and spectral Doppler. Exam performed in department. A preliminary report was called and/or faxed to Dr Enrique/Britany RUSH @ 12: 35 PM. 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 Deep veins of the left lower extremity are patent and compressible segmentally. There is no evidence of left lower extremity deep vein thrombosis. The left great saphenous vein appears patent an d compressible segmentally. Ordering Physician: Chuck Allen Referring Physician: Jose Alejandro London Performed By: Babs Quinones, DELMIS, RVT
--- OUTSIDE RECORDS SUMMARY | 2025-04-13 11:51 | XMS RPT_ITS | CCD ---
Author Organization [facility] Care Team Providers Care Data Architect Manager Name Role Phone Cassdiy Moore MD Unavailable [phone] Sherrie MAINTENANCE CUSTODIAN, Hanh S Unavailable [phone] Debora Quiroz Unavailable Unavailable Debora Quiroz Unavailable Unavailable Nima Kaur Unavailable Unavailable Angeles RN RN, Sneha Medrano Unavailable Unavailteresita Balderas MAINTENANCE CUSTODIAN, Hanh S Unavailable [phone] Cassidy Moore MD Unavailable [phone] Dr. Aleena London Primary Care Provider 1(33 [phone]) Dr. Aleena London Referring Provider [phone] ADRI Cho Attending Provider Unavailab Lynn MAINTENANCE CUSTODIAN, MAINTENANCE CUSTODIAN-C Deysi Attending Provider [phone] Dr. Aleena London Attending Provider [phone] Dr. Ralph Tracy Attending Provider 1(330) Dr. Royce Mckinney Attending Provider [phone] Cassidy Moore Attending Provider 1(330 ) Sherrie MAINTENANCE CUSTODIAN, MAINTENANCE CUSTODIAN-C Hanh Attending Provider [phone] Dr. Aleena London Primary Care Provider [phone] Dr. Aleena London Referring Provider [phone] ADRI Cho Attending Provider UnavailADRI Chen Attending Provider [phone] Cleve MARY, MAINTENANCE CUSTODIAN-C Rea Desai Attending Provider 1(3 30) Dr. Aleena London Primary Care Provider [phone] Dr. Aleena London Referring Provider [phone] ADRI Cho Attending Provider Dr. Aleena Garcia Attending Provider [phone] Baldomero MAINTENANCE CUSTODIAN, MAINTENANCE CUSTODIAN-Shiraz Bermudez Attending Provider ADRI Freire Attending Provider Dr. Aleena London Primary Care Provider [phone] Dr. Aleena London Referring Provider [phone] Dr. Ralph Tracy Attending Provider ADRI Cho Attending Provider ADRI Lomax Other Provider [phone] Dr. Aleena London Primary Care Provider [phone] Dr. Aleena London Referring Provider [phone])2 Dr. Cassidy Moore Attending Provider [phone] Dr. Royce Mckinney Attending Provider Enoc MAINTENANCE CUSTODIAN, MAINTENANCE CUSTODIAN-C Libertad Attending Provider 1(330) Dr. Mark Anthony Haynes Attending Provider Dr. Aleena London Primary Care Provider [phone] Dr. Aleena London Referring Provider [phone])2 Dr. Aleena London Attending Provider [phone])2 Dr. Mark Anthony Haynes Referring Provider Dr. Aleena London Primary Care Provider [phone] Dr. Aleena London Referring Provider [phone])2 Dr. Cassidy Moore Attending Provider ADRI Albert Attending Provider Dr. Aleena London Primary Care Provider [phone] Dr. Aleena London Referring Provider [phone] Cleve MAINTENANCE CUSTODIAN, MAINTENANCE CUSTODIAN-C Rea Desai Attending Provider 1(3 30) Dr. [...] Aleena London Referring Provider [phone] Enoc MARY, MAINTENANCE CUSTODIAN-C Libertad Attending Provider 1(330) Dr. Cassidy Moore Admit Provider [phone] Dr. Cassidy Moore Other Provider [phone] Dr. Aleena London Primary Care Provider 1(33 0) Dr. Aleena London Referring Provider [phone])2 Dr. Cassidy Moore Attending Provider 1(330 ) Cleve MAINTENANCE CUSTODIAN, MAINTENANCE CUSTODIAN-C Rea Desai Attending Provider 1(3 30) Dr. Aleena London Attending Provider [phone])2 Dr. Mo Washington Attending Provider [phone] ADRI Albert Attending Provider Dr. Jossue Sanchez Attending Provider [phone] Cassidy Moore Referring Provider 1(330 ) Enoc MAINTENANCE CUSTODIAN, MAINTENANCE CUSTODIAN-C Libertad Attending Provider 1(330) Dr. Cassidy Moore Admit Provider [phone] Dr. Cassidy Moore Other Provider [phone] Dr. Dimple Lynn Attending Provider 1(3 30) Dr. Aleena London Primary Care Provider [phone] Dr. Aleena London Referring Provider [phone])2 Dr. Cassidy Moore Attending Provider 1(330 ) Dr. Adele Aguila Emergency Provider Dr. Christiano Eduardo Other Provider Unavaila [facility] Lita, Dr. Blount Primary Care Provider 1(33 0) Dr. Aleena London Referring Provider [phone] Cleve MAINTENANCE CUSTODIAN, MAINTENANCE CUSTODIAN-C Rea Desai Attending Provider 1(3 30) Dr. Aleena London Primary Care Provider [phone] Dr. Aleena London Referring Provider [phone])2 Dr. Cassidy Moore Attending Provider 1(330 ) Cleve MAINTENANCE CUSTODIAN, MAINTENANCE CUSTODIAN-C Rea Desai Attending Provider [phone] Dr. Mo Washington Attending Provider ADRI Albert Attending Provider Dr. Jossue Sanchez Attending Provider Dr. aCssidy Moore Referring Provider 1(330 ) Enoc MAINTENANCE CUSTODIAN, MAINTENANCE CUSTODIAN-C Libertad Attending Provider 1(330) Dr. Cassidy Moore [...] [phone])2 Dr. Jossue Sanchez Attending Provider Enoc MAINTENANCE CUSTODIAN, MAINTENANCE CUSTODIAN-C Libertad Attending Provider [phone] Pending, Provider Primary Care Unavailable Dr. Argelia Paris Attending Unavail able Cleve MAINTENANCE CUSTODIAN, MAINTENANCE CUSTODIAN-C Rea Desai Attending Provider [phone] ALEENA [...] [phone] Dr. Epifanio Kong [facility] Provider [facility] [place] [place] Attending Provider Unavailab duyen Stubbs MAINTENANCE CUSTODIAN, MAINTENANCE CUSTODIAN-C Libertad Attending Provider 1(330) Cleve MAINTENANCE CUSTODIAN, MAINTENANCE CUSTODIAN-C Rea Desai Attending Provider 1(3 30) LITA HARTMAN, ALEENA Fernandes Primary Care Physician (3 30) ALAN QUINN DO Attending Unavailable LITA HARTMAN, ALEENA Fernandes Primary Care Unavailab duyen LONDON MD, ALEENA Fernandes Primary Care Unavailab BALDO Farah Attending Unavailable Dr. Aleena London Primary Care Provider 1(33 0) Dr. Aleena London Referring Provider [phone] Sherrie MAINTENANCE CUSTODIAN, MAINTENANCE CUSTODIAN-C Hanh Attending Provider 1(330 ) Maeve MARY, MAINTENANCE CUSTODIAN-C Deysi Attending Provider Dr. Greg Ernique Attending Provider [phone] Dimple Luis [...] Dr. Aleena London Referring Provider [phone] Sherrie MAINTENANCE CUSTODIAN, TYRA-Shiraz Schafer Attending Provider 1(330 ) Maeve MARY, MAINTENANCE CUSTODIAN-C Deysi Attending Provider Dr. Greg Enrique Attending [...] Dimple Lynn Attending Provider [phone] Sherrie MAINTENANCE CUSTODIAN, MAINTENANCE CUSTODIAN-C Hanh Attending Provider 1(330 ) Dr. Aleena London Primary Care Provider 1(33 0) Dr. Aleena London Referring Provider [phone] Dimple Lynn R Unavailable Dr. Aleena London Primary Care Provider 1(33 0) Dr. Aleena London Referring Provider [phone] Dr. Ralph Tracy Attending Provider 1(330) Dr. Dimple Lynn Attending Provider [phone] Sherrie MAINTENANCE CUSTODIAN, TYRA-C Hanh Attending Provider 1(330 ) Dr. [...] Dimple Lynn Attending Provider 1(3 30) Sherrie MAINTENANCE CUSTODIAN, MARY ELLEN Schafer Attending Provider 1(330 ) [phone] ADRI Albert Attending Provider Sherrie MARY, MAINTENANCE CUSTODIAN-C Hanh Attending Provider [phone] Dr. Aleena [...] Kaur MD, Nima Medrano Primary Care Provider [phone] Lita HARTMAN, Aleena Pavondicta Primary Care Prov ider OLEGHE, EFEWONGBE LISE Primary Care Unav ailable DB JR., TOMASZ Referring Unavailable DB JR., SHUNGNAK Admitting Unavailable OLEGHE, EFEWONGBE LISE Primary Care Unav ailable DB JR., SHUNGNAK Referring Unavailable DB JR., SHUNGNAK Admitting Unavailable OLEGHE, EFEWONGBE LISE Primary Care [...] Britany Referring Unavailable Nuñez Britany Attending Unavailable Unñez, Britany Referring Unavailable Oleghe, Efewongbe Primary Care [...] Attending Unavailable Luis Alfredo Irving Referring Unavailable Mark Anthony Haynes Attending Unavailable Oleghe, Efewongbe Primary Care Unavailable Baddologan, Mark Anthony Referring Unavailable Nuñez, Britany Referring Unavailable Nuñez, Britany Attending Unavailable Oleghe, Efewongbe Primary Care Unavailable Oleghe, Efewongbe Primary Care Unavailable [place] MAINTENANCE CUSTODIAN, Hanh Attending Unavailable [place] MAINTENANCE CUSTODIAN, Hanh Referring Unavailable Nuñez, Britany Referring Unavailable Nuñez, Britany Attending Unavailable Oleghe, Efewongbe Primary Care Unavailable Edmond Young Attending Unavailable Oleghe, Efewongbe Primary Care Unavailable Oleghe, Efewongbe Primary Care Unavailable Patrick Banks Attending Unavailable Patrick Banks Referring Unavailable Oleghe, Efewongbe Primary Care Unavailable Iesha Loya Referring Unavailable Iesha Loya Attending Unavailable Oleghe, Efewongbe Primary Care Unavailable ExelandChetic Attending Unavailable Iva, Greg Referring Unavailable Nuñez, [...] Referring Unavailable Oleghe, Efewongbe Primary Care Unavailable [place] MAINTENANCE CUSTODIAN, Hanh Referring Unavailable [place] MAINTENANCE CUSTODIAN, Hanh Attending Unavailable Lisa Berkowitz Referring Unavailable Lisa Berkowitz Attending Unavailable Oleghe, Efewongbe Primary Care Unavailable Exeland, Greg Referring Unavailable Iva, Greg Attending Unavailable Oleghe, Efewongbe Primary Care Unavailable Oleghe, Efewongbe Primary Care Unavailable Nuñez, Britany Referring Unavailable Nuñez, Britany Attending Unavailable Oleghe, Efewongbe Primary Care Unavailable Iva, Greg Referring Unavailable Exeland, Greg Attending Unavailable Luiz Ramyn Attending Unavailable [...] Attending Unavailable Oleghe, Efewongbe Primary Care Unavailable Exeland, Greg Referring Unavailable Iva, Greg Attending Unavailable Nuñez, Britany Consulting Unavailable Oleghe, Efewongbe Primary Care Unavailable Iva Greg Attending Unavailable Nuñez, Britany Referring Unavailable Oleghe, Efewongbe Attending Unavailable Oleghe, Efewongbe Primary Care Unavailable Oleghe, Efewongbe Referring Unavailable Greyson Freire Attending Unavailable Oleghe, Efewongbe Primary Care Unavailable Mark Anthony Haynes Referring Unavailable Oleghe, Efewongbe Primary Care [...] Referring Unavailable Oleghe, Efewongbe Primary Care Unavailable Mark Anthony Haynes Attending Unavailable Sigrid Ram Attending Unavailable [...] Attending Unavailable Oleghe, Efewongbe Primary Care Unavailable Exeland, Greg Attending Unavailable Nuñez, Britany Referring Unavailable Iva, Greg Attending Unavailable Nuñez, Britany Referring Unavailable Exeland, Greg Referring Unavailable Exeland, Greg Attending Unavailable Oleghe, Efewongbe Primary Care [...] Unavailable Steidl, Tere L Referring Unavailable Steidl, Tere L Attending Unavailable Schwiger, Greg Attending Unavailable Oleghe, Efewongbe Primary Care Unavailable Allergies Allergy Classification Reported Allergen(s) Allergy Type Date of Onset Reaction(s) Facility (20 sources) ondansetron; Translations: [Zofran] drug allergy 01-10-20 17 [facility] (20 sources) penicillin v drug allergy 01-10-20 17 [facility] (1 source) ketorolac; Translations: [Toradol] Drug Allergy [facility] Repository (20 sources) Latex; Translations: [Latex] Propensity to adverse reactions to drug (disorder) 04-10-20 12 Eruption of skin (disorder), Rash [facility] Repository (20 sources) Penicillins; Translations: [penicillins] Propensity to adverse reactions to drug (disorder) 02-18-20 10 Hives [facility] Repository (7 sources) Acetaminophen Drug Allergy 08-21-[address] [facility] Work Phone: (20 sources) Dicyclomine; Translations: [DICYCLOMINE] Drug Allergy 05-27-19 16 Intolerance, GI Intolerance, Unknown [facility] (20 sources) Escitalopram; Translations: [ESCITALOPRAM] Drug Allergy 02-25-20 16 Headache, Unknown [facility] (20 sources) HYDROcodone; Translations: [HYDROCODONE] Drug Allergy 03-15-[address] [facility] (20 sources) Ketorolac; Translations: [KETOROLAC] Drug Allergy 05-27-[address] [facility] (20 sources) Naproxen; Translations: [NAPROXEN] Drug Allergy 11-10-19 17 Unknown, Other (See Comments), Hives [facility] (20 sources) Ondansetron; Translations: [ONDANSETRON HCL] Drug Allergy 03-02-20 21 Migraine [facility] Repository (20 sources) Promethazine; Translations: [PROMETHAZINE] Drug Allergy 12-28-[address] [facility] (20 sources) Sertraline; Translations: [SERTRALINE] Drug Allergy 02-25-20 16 Headache, Other (See Comments) [facility] (4 sources) Acetaminophen / HYDROcodone; Translations: [HYDROCODONE-ACET AMINOPHEN] Drug Allergy 02-25-20 22 Other (See Comments) [facility] Repository (1 source) Penicillin; Translations: [penicillins] Drug Allergy Eruption of skin (disorder) [facility] (7 sources) Escitalopram; Translations: [ESCITALOPRAM OXALATE] Drug Allergy 02-25-20 16 Other: See Comments [facility] Work Phone: (7 sources) Ondansetron; Translations: [ONDANSETRON HCL (PF)] Drug Allergy 08-17-19 13 Other: See Comments [facility] Work Phone: (7 sources) Promethazine; Translations: [PROMETHAZINE HCL] Drug Allergy 12-28-19 18 Unknown [facility] Work Phone: (7 sources) Sertraline; Translations: [SERTRALINE HCL] Drug Allergy 02-25-20 16 Other: See Comments [facility] Work Phone: (3 sources) Non-steroidal anti-inflammatory agent; Translations: [NSAIDS (NON-STEROIDAL ANTI-INFLAMMATORY DRUG)] Propensity to adverse reactions to drug 05-29-19 25 Unknown [facility] (1 source) Dicyclomine Drug Allergy 05-06-[address] [facility] Repository (1 source) Escitalopram Drug Allergy 03-17-20 [facility] Rep[facility] (1 source) HYDROcodone Drug Allergy 03-17-20 [facility] Repository (1 source) Ketorolac Drug Allergy 03-17-20 [facility] Repository (1 source) Naproxen Drug Allergy 03-17-20 [facility] Repository (1 source) Sertraline Drug Allergy 03-17-20 [facility] Repository (1 source) NSAIDS (Non-Steroidal Anti-Inflamma Drug allergy (disorder) 03-17-20 [facility] Repository Medications Current Medications Medication Drug [...] Comment on above: Take 1 capsule by [facility] once daily for 30 days. azithromycin 250 [...] Comment on above: Take 1 capsule by [facility] once daily. fluconazole 150 mg oral tablet [...] and post prandial BLOOD GLUCOSE MONITORING SUPPL [id number] Cassidy Moore MD Start: 02-06-2017 End: 02-13-2017 FREESTYLE FREEDOM LITE w/Dev ice KIT Check blood sugar fast and post prandial BLOOD GLUCOSE MONITORING SUPPL [id number] Cassidy Moore MD BLOOD GLUCOSE MONITORING SUP PL (13 sources) Start: 02-06-2017 End: 02-13-2017 FREESTYLE FREEDOM LITE w/Dev ice KIT Check blood sugar fast and post prandial BLOOD GLUCOSE MONITORING SUPPL [id number] Cassidy Moore MD Start: 02-06-2017 End: 02-13-2017 FREESTYLE FREEDOM LITE w/Dev ice KIT Check blood sugar fast and post prandial BLOOD GLUCOSE MONITORING SUPPL [id number] Cassidy Moore MD BLOOD GLUCOSE MONITORING SUPPL (2 sources) Start: 02-06-2017 End: 02-13-2017 FREESTYLE FREEDOM LITE w/Device KIT Check blood sugar fast and post prandial BLOOD GLUCOSE MONITORING SUPPL [id number] Cassidy Moore MD cefdinir 300 mg oral [...] Sugar fasting and post prandial GLUCOSE BLOOD [id number] Cassidy Moore MD Start: 02-06-2017 End: 02-13-2017 FREESTYLE LITE TEST STRP Susan ck Blood Sugar fasting and post prandial GLUCOSE BLOOD [id number] Cassidy Moore MD GLUCOSE BLOOD (13 sources) Start: 02-06-2017 End: 02-13-2017 FREESTYLE LITE TEST STRP Susan ck Blood Sugar fasting and post prandial GLUCOSE BLOOD [id number] Cassidy Moore MD Start: 02-06-2017 End: 02-13-2017 FREESTYLE LITE TEST STRP Susan ck Blood Sugar fasting and post prandial GLUCOSE BLOOD [id number] Cassidy Moore MD GLUCOSE BLOOD (2 sources) Start: 02-06-2017 End: 02-13-2017 FREESTYLE LITE TEST STRP Check Blood Sugar fasting and post prandial GLUCOSE BLOOD [id number] Cassidy Moore MD hydrocortisone 25 mg/ml topical [...] menstrual cycle Start: 03-15-2021 End: 06-03-2021 nystatin [id number] unt/ml topic al cream (20 sources) Polyene [...] on above: TAKE ONE TABLET BY M [facility] WITH KETOPROFEN promethazine hydrochloride 12.5 mg oral tablet (20 sources) Phenothiazine Start: 01-10-20 take 1 tablet by mouth every six hours as needed PROMETHAZINE HCL 12.5 MG TABS 1 po q 6 hours as needed PROMETHAZINE HCL [id number] Cassidy Moore MD Dkejsyhbk-Zyvhokcif-Zt rethindr (17 sources) Start: 02-15-20 End: 04-19-20 [...] 11-04-2024 ED Prov Note ED PROVIDER NOTE [facility] EM[facility]ENCY [facility] NAME: Lana Rivera AGE: 39 y.o. : 1985 VISIT DATE: 11/04/2024 CSN: [id number] PCP: Aleena London MD Chief Complaint Patient [...] ER for chest pain on arrival to [facility], no acute distress, differential [place] limited to atypical ACS, PE, pneumonia, pneumothorax, costochondritis, pleuritis. Labs imaging pursued. Labs no severe leukocytosis or electrolyte abnormalities, D-dimer negative, delta troponin levels negative, chest x-ray is grossly remarkable, patient currently chest pain-free, will discharge as she is low risk ACS patient with close interval fo (more content not included)... Normal [facility] POC BASIC METABOLIC PANEL - [facility] 11-04-2024 Chloride [Moles/Vol] 103 mmol/L Normal 98-108 [facility] Comment on above: Order Comment: Negat jimmie: Dilute urine specimens, as indicated by a low specific gravity (<1.010) may not contain representitive levels of hCG. If is still suspected, a serum test or repeat urine test using a first morning urine specimen should be considered. CO2 [Moles/Vol] 25 mmol/L Normal 21-32 [facility] Comment on above: Order Comment: Negat jimime: Dilute urine specimens, as indicated by a low specific gravity (<1.010) may not contain representitive levels of hCG. If is still suspected, a serum test or repeat urine test using a first morning urine specimen should be considered. Creatinine [Mass/Vol] 0.67 mg/dL Normal 0.40-1.10 [facility] Comment on above: Order Comment: Negat jimmie: Dilute urine specimens, as indicated by a low specific gravity (<1.010) may not contain representitive levels of hCG. If is still suspected, a serum test or repeat urine test using a first morning urine specimen should be considered. Glucose [Mass/Vol] 129 mg/dL High 65-99 [facility] Comment on above: Order Comment: Negat jimmie: Dilute urine specimens, as indicated by a low specific gravity (<1.010) may not contain representitive levels of hCG. If is still suspected, a serum test or repeat urine test using a first morning urine specimen should be considered. POC GFR 116 mL/min/1.73 m2 Normal >=60 [facility] Comment on above: Order Comment: Negat jimmie: [...] POC IONIZED CALCIUM 4.8 mg/dL Normal 4.5-5.3 [facility] Comment on above: Order Comment: Negat jimmie: Dilute urine specimens, as indicated by a low specific gravity (<1.010) may not contain representitive levels of hCG. If is still suspected, a serum test or repeat urine test using a first morning urine specimen should be considered. Potassium [Moles/Vol] 3.2 mmol/L Low 3.5-5.1 [facility] Comment on above: Order Comment: Negat jimmie: Dilute urine specimens, as indicated by a low specific gravity (<1.010) may not contain representitive levels of hCG. If is still suspected, a serum test or repeat urine test using a first morning urine specimen should be considered. Sodium [Moles/Vol] 134 mmol/L Low 135-145 [facility] Comment on above: Order Comment: Negat jimmie: Dilute urine specimens, as indicated by a low specific gravity (<1.010) may not contain representitive levels of hCG. If is still suspected, a serum test or repeat urine test using a first morning urine specimen should be considered. Urea nitrogen [Mass/Vol] 6 mg/dL Low 8-25 [facility] Comment on above: Order Comment: Negat jimmie: Dilute urine specimens, as indicated by a low specific gravity (<1.010) may not contain representitive levels of hCG. If is still suspected, a serum test or repeat urine test using a first morning urine specimen should be considered. POC CBC AND DIFFERENTIALon 0 11-04-2024 BASOPHILS ABSOLUTE COUNT 0.02 K/mcL Normal 0.00-0.30 [facility] Basophils/100 WBC (Bld) 0.5 % Normal [facility] Eosinophils (Bld) [#/Vol] 0.22 10*3/uL Normal 0.00-0.50 [facility] Eosinophils/100 WBC (Bld) 5.1 % Normal [facility] Erythrocyte distribution width (RBC) [Ratio] 12.9 % Normal 11.6-14.8 [facility] Hematocrit (Bld) [Volume fraction] 41.5 % Normal 36.0-46.0 [facility] Hemoglobin (Bld) [Mass/Vol] 13.7 g/dL Normal 12.0-16.0 [facility] IG ABSOLUTE 0.01 K/mcL Normal 0.00-0.30 [facility] IG PERCENT 0.20 % Normal [facility] Comment on above: Result Comment: The IG parameter is the percentage of metamyelocytes, myelocytes and promyelocytes. An immature granulocyte count (IG) of 1% or more suggests the possibility of infection, an IG count of 3% is very likely related to an infection. Lymphocytes (Bld) [#/Vol] 1.20 10*3/uL Normal 0.90-4.00 [facility] Lymphocytes/100 WBC (Bld) 28.0 % Normal [facility] MCH (RBC) [Entitic mass] 28.2 pg Normal 26.0-34.0 [facility] MCV (RBC) [Entitic vol] 85.6 fL Normal 80.0-100.0 [facility] MEAN CORPUSCULAR HEMOGLOBIN CONC 33.0 g/dL Normal 31.0-37.0 [facility] Monocytes (Bld) [#/Vol] 0.35 10*3/uL Normal 0.30-0.90 [facility] Monocytes/100 WBC (Bld) 8.2 % Normal [facility] NEUTROPHILS ABSOLUTE COUNT 2.48 K/mcL Normal 1.70-7.00 [facility] Neutrophils/100 WBC (Bld) 58.0 % Normal [facility] Platelet mean volume (Bld) [Entitic vol] 10.5 fL Normal 9.4-12.4 [facility] Platelets (Bld) [#/Vol] 152 10*3/uL Normal 150-400 [facility] RBC (Bld) [#/Vol] 4.85 10*6/uL Normal 4.00-5.20 [facility] WBC (Bld) [#/Vol] 4.28 10*3/uL Low 4.50-11.00 [facility] POC D-DIMER [facility] 5 POC D-DIMER 209 ng/mL DDU Normal <350 [facility] Comment on above: Order Comment: Injur y/Trauma or Illness?:Illness/Other How long have you had these symptoms (acute/chronic)?:Acute Reason for exam?:sudden onset of lower abd and right sided back pain in the night hx of ovarian cyst and endometreosis Type of Exam?:Initial Additional signs and symptoms?:na POC TROPONIN I [facility] 2024 POC TROPONIN I < Normal <0.05 [facility] POC TROPONIN I < Normal <0.05 [facility] XR CHEST PA/APon 11-04-2024 XR CHEST PA/AP [...] is unremarkable. IMPRESSION: No acute cardiopulmonary process. ST/DDN Workstation ID: [id number] Dictated by: JOHANNA MARCH on MonNov 04, 2024 2:36:53 PM EDT Transcribed by: SULAIMAN FREEDMAN on MonNov 04, 2024 2:59:40 PM EDT Finalized by: JOHANNA MARCH on MonNov 04, 2024 9:31:[address] [facility] Comment on above: Order Comment: Injur y/Trauma or Illness?:Illness/Other How long have you had these symptoms (acute/chronic)?:Acute Reason for exam?:sudden onset of lower abd and right sided back pain in the night hx of ovarian cyst and endometreosis Type of Exam?:Initial Additional signs and symptoms?:na ED Prov Noteon 10-04-2024 ED Prov Note ED PROVIDER NOTE [facility] EM[facility] NAME: Lana Rivera AGE: 39 y.o. : 1985 VISIT DATE: 10/04/2024 CSN: [id number] PCP: Aleena London MD Chief Complaint Patient [...] is warm. (more content not included)... Normal [facility] ED Prov Noteon 08-20-2024 ED Prov Note HPI: 08/20/2024, Time: @ILZZ@ Lana Desai Miguel is a 39 y.o. female presenting to [...] PAST HISTORY Past Medical History: @[facility]@ Past Surgical History: has a [...] 5 days . Follow-up: Aleena London MD [id number] [facility] [id number] In 3 days Final Impression: 1. Hearing loss due to cerumen impaction, right 2. Acute bronchitis, unspecified organism (Please note that portions of this note were completed with a voice recognition program. Efforts were made to edit the dictations but occasionally words are mis-transcribed.) G (more content not included)... Normal [facility] POC STREP A - MOLECULAR RALS on 08-20-2024 POC STREP A SCREEN Negative Normal Negative [facility] XR CHEST PA/APon 08-20-2024 XR CHEST PA/AP [...] on MonAug 20, 2024 12:05:28 PM EDT [place] [facility] Comment on above: Order [...] MonJun 21, 2024 5:05:52 PM EST [facility] Comment on above: Order Comment: [...] MonJun 21, 2024 5:05:42 PM EST [facility] Comment on above: Order Comment: Injur y/Trauma or Illness?:Illness/Other How long have you had these symptoms (acute/chronic)?:Chronic Reason for exam?:PAIN History of cancer?:n Surgeries, chemotherapy, or radiation?:ORIF radius and ulna Type of Exam?:Initial Additional signs and symptoms?:NO ED Prov Noteon 06-16-2024 ED Prov Note [place] ED Physician Note: NAME: Lana Rivera 39 y.o. CSN: [id number] PCP: Aleena London MD ED Course / [...] Resource Strain: High Risk (02/19/2020) Received from [facility] Overall Financial Resource Strain (CARDIA) Difficulty of Paying Living Expenses: Hard Food Insecurity: No Food Insecurity (02/19/2020) Received from [facility] Hunger Vital Sign Worried About Running Out of Food in the Last Year: Never true Ran Out of Food in the Last Year: Never true Transportation Needs: No Transportation Needs (02/19/2020) Received from [facility] PRAPARE - Transportation Lack of Transportation (Medical): No Lack of Transportation (Non-Medical): No Physical Activity: Insufficiently Active (01/27/2020) Received from [facility] Exercise Vital Sign Days of Exercise per Week: 2 days Minutes of Exercise per Session: 20 min Stress: No Stress Concern Present (01/27/2020) Received from [facility] - Occupational Stress Questionnaire Feeling of Stress : Only a little Social Connections: Moderately Isolated (01/27/2020) Received from [facility] Social Connection and Isolation Panel [NHANES] Frequency of Communication with Friends and Family: More than three times a week Frequency of Social Gatherings with Friends and Family: Twice a week Attends Rastafarian Services: Never Active Member of Clubs or Organizations: No Attends Club or Organization Meetings: Never Marital Status: Housing Stability: Low Risk (01/27/2020) Received from [facility] Housing Stability Vital Sign Unable to [...] Take 2 pills (more content not included)... [facility] ED Prov Noteon 06-13-2024 ED Prov Note ED PROVIDER NOTE [facility] NAME: Lana Rivera AGE: 39 y.o. : 1985 VISIT DATE: 06/13/2024 CSN: [id number] PCP: Aleena London MD Chief Complaint Patient [...] Resource Strain: High Risk (02/19/2020) Received from [facility] Overall Financial Resource Strain (CARDIA) Difficulty of Paying Living Expenses: Hard Food Insecurity: No Food Insecurity (02/19/2020) Received from [facility] Hunger Vital Sign Worried About Running Out of Food in the Last Year: Never true Ran Out of Food in the Last Year: Never true Transportation Needs: No Transportation Needs (02/19/2020) Received from [facility] PRAPARE - Transportation Lack of Transportation (Medical): No Lack of Transportation (Non-Medical): No Physical Activity: Insufficiently Active (01/27/2020) Received from [facility] Exercise Vital Sign Days of Exercise per Week: 2 days Minutes of Exercise per Session: 20 min Stress: No Stress Concern Present (01/27/2020) Received from [facility] - Occupational Stress Questionnaire Feeling of Stress : Only a little Social Connections: Moderately Isolated (01/27/2020) Received from [facility] Social Connection and Isolation Panel [NHANES] Frequency of Communication with Friends and Family: More than three times a week Frequency of Social Gatherings with Friends and Family: Twice a week Attends Rastafarian Services: Never Active Member of Clubs or Organizations: No Attends Club or Organization Meetings: Never Marital Status: Housing Stability: Low Risk (01/27/2020) Received from [facility] Housing Stability Vital Sign Unable to [...] Allergies Allergen Re (more content not included)... [facility] XR SHOULDER LEFT 2+ VIEWS [...] [place] on MonJun 13, 2024 3:52:[address] [facility] Comment on above: Order Comment: Injur y/Trauma or Illness?:Illness/Other How long have you had these symptoms (acute/chronic)?:Acute Reason for exam?:lower GI bleed with abd pain Type of Exam?:Initial Additional signs and symptoms?:na ED Prov Noteon 06-05-2024 ED Prov Note ED PROVIDER NOTE [facility] NAME: Lana Rivera AGE: 39 y.o. : 1985 VISIT DATE: 06/05/2024 CSN: [id number] PCP: Aleena London MD Chief Complaint Patient [...] Resource Strain: High Risk (02/19/2020) Received from [facility] Overall Financial Resource Strain (CARDIA) Difficulty of Paying Living Expenses: Hard Food Insecurity: No Food Insecurity (02/19/2020) Received from [facility] Hunger Vital Sign Worried About Running Out of Food in the Last Year: Never true Ran Out of Food in the Last Year: Never true Transportation Needs: No Transportation Needs (02/19/2020) Received from [facility] PRAPARE - Transportation Lack of Transportation (Medical): No Lack of Transportation (Non-Medical): No Physical Activity: Insufficiently Active (01/27/2020) Received from [facility] Exercise Vital Sign Days of Exercise per Week: 2 days Minutes of Exercise per Session: 20 min Stress: No Stress Concern Present (01/27/2020) Received from [facility] - Occupational Stress Questionnaire Feeling of Stress : Only a little Social Connections: Moderately Isolated (01/27/2020) Received from [facility] Social Connection and Isolation Panel [NHANES] Frequency of Communication with Friends and Family: More than three times a week Frequency of Social Gatherings with Friends and Family: Twice a week Attends Rastafarian Services: Never Active Member of Clubs or Organizations: No Attends Club or Organization Meetings: Never Marital Status: Housing Stability: Low Risk (01/27/2020) Received from [facility] Housing Stability Vital Sign Unable to [...] times a d (more content not included)... [facility] ED Prov Noteon 05-28-2024 ED Prov Note ED PROVIDER NOTE [facility] NAME: Lana Rivera AGE: 39 y.o. : 1985 VISIT DATE: 05/28/2024 CSN: [id number] PCP: Aleena London MD Chief Complaint Patient [...] Resource Strain: High Risk (02/19/2020) Received from [facility] Overall Financial Resource Strain (CARDIA) Difficulty of Paying Living Expenses: Hard Food Insecurity: No Food Insecurity (02/19/2020) Received from [facility] Hunger Vital Sign Worried About Running Out of Food in the Last Year: Never true Ran Out of Food in the Last Year: Never true Transportation Needs: No Transportation Needs (02/19/2020) Received from [facility] PRAPARE - Transportation Lack of Transportation (Medical): No Lack of Transportation (Non-Medical): No Physical Activity: Insufficiently Active (01/27/2020) Received from [facility] Exercise Vital Sign Days of Exercise per Week: 2 days Minutes of Exercise per Session: 20 min Stress: No Stress Concern Present (01/27/2020) Received from [facility] [employer] [facility] - Occupational Stress Questionnaire Feeling of Stress : Only a little Social Connections: Moderately Isolated (01/27/2020) Received from [facility] Social Connection and Isolation Panel [NHANES] Frequency of Communication with Friends and Family: More than three times a week Frequency of Social Gatherings with Friends and Family: Twice a week Attends Rastafarian Services: Never Active Member of Clubs or Organizations: No Attends Club or Organization Meetings: Never Marital Status: Housing Stability: Low Risk (01/27/2020) Received from [facility] Housing Stability Vital Sign Unable to [...] Allergen Reactions Hydrocodo (more content not included)... [facility] ED Prov Noteon 05-09-2024 ED Prov Note HPI: 05/09/2024, Time: @LIZZ@ Lana Desai Miguel is a 39 y.o. female presenting to [...] PAST HISTORY Past Medical History: @[facility]@ Past Surgical History: has a [...] (more content not included)... Normal [facility] ED Prov Noteon 04-15-2024 ED Prov Note ED PROVIDER NOTE [facility] NAME: Lana Rivera AGE: 38 y.o. : 1985 VISIT DATE: 04/15/2024 CSN: [id number] PCP: Aleena London MD Chief Complaint Patient [...] Resource Strain: High Risk (02/19/2020) Received from [facility] Overall Financial Resource Strain (CARDIA) Difficulty of Paying Living Expenses: Hard Food Insecurity: No Food Insecurity (02/19/2020) Received from [facility] Hunger Vital Sign Worried About Running Out of Food in the Last Year: Never true Ran Out of Food in the Last Year: Never true Transportation Needs: No Transportation Needs (02/19/2020) Received from [facility] PRAPARE - Transportation Lack of Transportation (Medical): No Lack of Transportation (Non-Medical): No Physical Activity: Insufficiently Active (01/27/2020) Received from [facility] Exercise Vital Sign Days of Exercise per Week: 2 days Minutes of Exercise per Session: 20 min Stress: No Stress Concern Present (01/27/2020) Received from [facility] - Occupational Stress Questionnaire Feeling of Stress : Only a little Social Connections: Moderately Isolated (01/27/2020) Received from [facility] Social Connection and Isolation Panel [NHANES] Frequency of Communication with Friends and Family: More than three times a week Frequency of Social Gatherings with Friends and Family: Twice a week Attends Rastafarian Services: Never Active Member of Clubs or Organizations: No Attends Club or Organization Meetings: Never Marital Status: Housing Stability: Low Risk (01/27/2020) Received from [facility] Housing Stability Vital Sign Unable to [...] (more content not included)... Normal [facility] CT ABDOMEN PELVIS WITH IV CO NTRAST [...] left salpingo-oophorectomy. Ultrasound follow-up could be considered. [employer] Workstation ID: [id number] Dictated by: JOHANNA MARCH on MonApr 01, 2024 11:57:43 AM EST Transcribed by: CATINA GENTILE on MonApr 01, 2024 12:07:32 PM EST Finalized by: JOHANNA MARCH on MonApr 01, 2024 9:03:[address] [facility] Comment on above: Order Comment: Injur y/Trauma or Illness?:Illness/Other How long have you had these symptoms (acute/chronic)?:Acute Reason for exam?:sudden onset of lower abd and right sided back pain in the night hx of ovarian cyst and endometreosis Type of Exam?:Initial Additional signs and symptoms?:na ED Prov Noteon 04-01-2024 ED Prov Note ED PROVIDER NOTE [facility] NAME: Lana Rivera AGE: 38 y.o. : 1985 VISIT DATE: 04/01/2024 CSN: [id number] PCP: Aleena London MD Chief Complaint Patient [...] Resource Strain: High Risk (02/19/2020) Received from [facility] Overall Financial Resource Strain (CARDIA) Difficulty of Paying Living Expenses: Hard Food Insecurity: No Food Insecurity (02/19/2020) Received from [facility] Hunger Vital Sign Worried About Running Out of Food in the Last Year: Never true Ran Out of Food in the Last Year: Never true Transportation Needs: No Transportation Needs (02/19/2020) Received from [facility] PRAPARE - Transportation Lack of Transportation (Medical): No Lack of Transportation (Non-Medical): No Physical Activity: Insufficiently Active (01/27/2020) Received from [facility] Exercise Vital Sign Days of Exercise per Week: 2 days Minutes of Exercise per Session: 20 min Stress: No Stress Concern Present (01/27/2020) Received from [facility] - Occupational Stress Questionnaire Feeling of Stress : Only a little Social Connections: Moderately Isolated (01/27/2020) Received from [facility] Social Connection and Isolation Panel [NHANES] Frequency of Communication with Friends and Family: More than three times a week Frequency of Social Gatherings with Friends and Family: Twice a week Attends Rastafarian Services: Never Active Member of Clubs or Organizations: No Attends Club or Organization Meetings: Never Marital Status: Housing Stability: Low Risk (01/27/2020) Received from [facility] Housing Stability Vital Sign Unable to [...] Reactions Hydrocod (more content not included)... Normal [facility] POC BASIC METABOLIC PANEL - Seda 04-01-2024 Chloride [Moles/Vol] 105 mmol/L Normal 98-108 [facility] Comment on above: Order Comment: Injur y/Trauma or Illness?:Illness/Other How long have you had these symptoms (acute/chronic)?:Acute Reason for exam?:sudden onset of lower abd and right sided back pain in the night hx of ovarian cyst and endometreosis Type of Exam?:Initial Additional signs and symptoms?:na CO2 [Moles/Vol] 25 mmol/L Normal 21-32 [facility] Comment on above: Order Comment: Injur y/Trauma or Illness?:Illness/Other How long have you had these symptoms (acute/chronic)?:Acute Reason for exam?:sudden onset of lower abd and right sided back pain in the night hx of ovarian cyst and endometreosis Type of Exam?:Initial Additional signs and symptoms?:na Creatinine [Mass/Vol] 0.60 mg/dL Normal 0.40-1.10 [facility] Comment on above: Order Comment: Injur y/Trauma or Illness?:Illness/Other How long have you had these symptoms (acute/chronic)?:Acute Reason for exam?:sudden onset of lower abd and right sided back pain in the night hx of ovarian cyst and endometreosis Type of Exam?:Initial Additional signs and symptoms?:na Glucose [Mass/Vol] 139 mg/dL High 65-99 [facility] Comment on above: Order Comment: Injur y/Trauma or Illness?:Illness/Other How long have you had these symptoms (acute/chronic)?:Acute Reason for exam?:sudden onset of lower abd and right sided back pain in the night hx of ovarian cyst and endometreosis Type of Exam?:Initial Additional signs and symptoms?:na POC GFR 119 mL/min/1.73 m2 Normal >=60 [facility] Comment on above: Order Comment: Injur y/Trauma [...] CALCIUM 4.7 mg/dL Normal 4.5-5.3 [facility] Comment on above: Order Comment: Injur y/Trauma or Illness?:Illness/Other How long have you had these symptoms (acute/chronic)?:Acute Reason for exam?:sudden onset of lower abd and right sided back pain in the night hx of ovarian cyst and endometreosis Type of Exam?:Initial Additional signs and symptoms?:na Potassium [Moles/Vol] 4.0 mmol/L Normal 3.5-5.1 [facility] Comment on above: Order Comment: Injur y/Trauma or Illness?:Illness/Other How long have you had these symptoms (acute/chronic)?:Acute Reason for exam?:sudden onset of lower abd and right sided back pain in the night hx of ovarian cyst and endometreosis Type of Exam?:Initial Additional signs and symptoms?:na Sodium [Moles/Vol] 141 mmol/L Normal 135-145 [facility] Comment on above: Order Comment: Injur y/Trauma or Illness?:Illness/Other How long have you had these symptoms (acute/chronic)?:Acute Reason for exam?:sudden onset of lower abd and right sided back pain in the night hx of ovarian cyst and endometreosis Type of Exam?:Initial Additional signs and symptoms?:na Urea nitrogen [Mass/Vol] 9 mg/dL Normal 8-25 [facility] Comment on above: Order Comment: Injur y/Trauma or Illness?:Illness/Other How long have you had these symptoms (acute/chronic)?:Acute Reason for exam?:sudden onset of lower abd and right sided back pain in the night hx of ovarian cyst and endometreosis Type of Exam?:Initial Additional signs and symptoms?:na POC CBC AND DIFFERENTIALon 06-01-2023 BASOPHILS ABSOLUTE COUNT 0.02 K/mcL Normal 0.00-0.30 [facility] Basophils/100 WBC (Bld) 0.4 % Normal [facility] Eosinophils (Bld) [#/Vol] 0.26 10*3/uL Normal 0.00-0.50 [facility] Eosinophils/100 WBC (Bld) 4.7 % Normal [facility] Erythrocyte distribution width (RBC) [Ratio] 12.6 % Normal 11.6-14.8 [facility] Hematocrit (Bld) [Volume fraction] 44.1 % Normal 36.0-46.0 [facility] Hemoglobin (Bld) [Mass/Vol] 14.8 g/dL Normal 12.0-16.0 [facility] IG ABSOLUTE 0.01 K/mcL Normal 0.00-0.30 [facility] IG PERCENT 0.20 % Normal [facility] Comment on above: Result Comment: The IG parameter is the percentage of metamyelocytes, myelocytes and promyelocytes. An immature granulocyte count (IG) of 1% or more suggests the possibility of infection, an IG count of 3% is very likely related to an infection. Lymphocytes (Bld) [#/Vol] 1.46 10*3/uL Normal 0.90-4.00 [facility] Lymphocytes/100 WBC (Bld) 26.3 % Normal [facility] MCH (RBC) [Entitic mass] 28.9 pg Normal 26.0-34.0 [facility] MCV (RBC) [Entitic vol] 86.1 fL Normal 80.0-100.0 [facility] MEAN CORPUSCULAR HEMOGLOBIN CONC 33.6 g/dL Normal 31.0-37.0 [facility] Monocytes (Bld) [#/Vol] 0.42 10*3/uL Normal 0.30-0.90 [facility] Monocytes/100 WBC (Bld) 7.6 % Normal [facility] NEUTROPHILS ABSOLUTE COUNT 3.39 K/mcL Normal 1.70-7.00 [facility] Neutrophils/100 WBC (Bld) 60.8 % Normal [facility] Platelet mean volume (Bld) [Entitic vol] 11.0 fL Normal 9.4-12.4 [facility] Platelets (Bld) [#/Vol] 173 10*3/uL Normal 150-400 [facility] RBC (Bld) [#/Vol] 5.12 10*6/uL Normal 4.00-5.20 [facility] WBC (Bld) [#/Vol] 5.56 10*3/uL Normal 4.50-11.00 [facility] POC LIVER PANEL PLUS [facility] 04-01-2024 Albumin [Mass/Vol] 4.0 g/dL Normal 3.2-5.2 [facility] ALP [Catalytic activity/Vol] 57 U/L Normal 40-140 [facility] ALT [Catalytic activity/Vol] 29 U/L Normal 0-40 [facility] Amylase [Catalytic activity/Vol] 24 U/L Low 25-115 [facility] Amylase [Catalytic activity/Vol] 17 U/L Normal 7-33 [facility] AST [Catalytic activity/Vol] 28 U/L Normal 0-45 [facility] Bilirubin [Mass/Vol] 0.6 mg/dL Normal 0.0-1.3 [facility] Protein [Mass/Vol] 7.2 g/dL Normal 6.0-8.0 [facility] Beta HCG ( test) Ql (U) Negative Normal Negative [facility] Comment on above: Order Comment: Injur y/Trauma or Illness?:Illness/Other How long have you had these symptoms (acute/chronic)?:Acute Reason for exam?:sudden onset of lower abd and right sided back pain in the night hx of ovarian cyst and endometreosis Type of Exam?:Initial Additional signs and symptoms?:na POC URINALYSIS DIPSTICK,AUTO - RALSon 04-01-2024 POC BILIRUBIN, URINE Negative Normal Negative [facility] POC BLOOD, URINE Negative Normal Negative [facility] POC GLUCOSE, URINE Negative Normal Negative [facility] POC KETONES, URINE Negative Normal Negative [facility] POC LEUKOCYTE ESTERASE, URINE Negative Normal Negative [facility] POC NITRITE, URINE Negative Normal Negative [facility] POC PH, URINE 6.5 Normal 5.0-7.0 [facility] POC PROTEIN, URINE Negative Normal Negative [facility] POC SPECIFIC GRAVITY 1.025 Normal 1.005-1.025 [facility] POC UROBILINOGEN 0.2 mg/dL Normal < 2.0 [facility] ED Prov Noteon 03-17-2024 ED Prov Note ED PROVIDER NOTE [facility] NAME: Lana Rivera AGE: 38 y.o. : 1985 VISIT DATE: 03/17/2024 CSN: [id number] PCP: Aleena London MD Chief Complaint Patient [...] Resource Strain: High Risk (02/19/2020) Received from [facility] Overall Financial Resource Strain (CARDIA) Difficulty of Paying Living Expenses: Hard Food Insecurity: No Food Insecurity (02/19/2020) Received from [facility] Hunger Vital Sign Worried About Running Out of Food in the Last Year: Never true Ran Out of Food in the Last Year: Never true Transportation Needs: No Transportation Needs (02/19/2020) Received from [facility] PRAPARE - Transportation Lack of Transportation (Medical): No Lack of Transportation (Non-Medical): No Physical Activity: Insufficiently Active (01/27/2020) Received from [facility] Exercise Vital Sign Days of Exercise per Week: 2 days Minutes of Exercise per Session: 20 min Stress: No Stress Concern Present (01/27/2020) Received from [facility] [employer] [facility] - Occupational Stress Questionnaire Feeling of Stress : Only a little Social Connections: Moderately Isolated (01/27/2020) Received from [facility] Social Connection and Isolation Panel [NHANES] Frequency of Communication with Friends and Family: More than three times a week Frequency of Social Gatherings with Friends and Family: Twice a week Attends Rastafarian Services: Never Active Member of Clubs or Organizations: No Attends Club or Organization Meetings: Never Marital Status: Housing Stability: Low Risk (01/27/2020) Received from [facility] Housing Stability Vital Sign Unable to [...] nausea . prochlorpe (more content not included)... [facility] XR CERVICAL SPINE COMPLETE 4 [...] well. 4. Upper lung zones are clear. [employer] Workstation ID: [id number] Dictated by: COLE PALM on [place] Mar 17, 2024 9:20:05 AM EDT Transcribed by: FLO MOSS on [place] Mar 17, 2024 9:48:26 AM EDT Finalized by: COLE PALM on [place] Mar 17, 2024 5:13:59 PM EDT [facility] Comment on above: Order [...] on MonMar 11, 2024 12:13:13 PM EDT [facility] Comment on above: Order Comment: Injur y/Trauma or Illness?:Illness/Other How long have you had these symptoms (acute/chronic)?:Acute Reason for exam?:lower GI bleed with abd pain Type of Exam?:Initial Additional signs and symptoms?:na ED Prov Noteon 03-11-2024 ED Prov Note ED PROVIDER NOTE [facility] NAME: Lana Rivera AGE: 38 y.o. : 1985 VISIT DATE: 03/11/2024 [facility]: [id number] PCP: Aleena London MD Chief Complaint Patient [...] Resource Strain: High Risk (02/19/2020) Received from [facility] Overall Financial Resource Strain (CARDIA) Difficulty of Paying Living Expenses: Hard Food Insecurity: No Food Insecurity (02/19/2020) Received from [facility] Hunger Vital Sign Worried About Running Out of Food in the Last Year: Never true Ran Out of Food in the Last Year: Never true Transportation Needs: No Transportation Needs (02/19/2020) Received from [facility] PRAPARE - Transportation Lack of Transportation (Medical): No Lack of Transportation (Non-Medical): No Physical Activity: Insufficiently Active (01/27/2020) Received from [facility] Exercise Vital Sign Days of Exercise per Week: 2 days Minutes of Exercise per Session: 20 min Stress: No Stress Concern Present (01/27/2020) Received from [facility] [employer] [facility] - Occupational Stress Questionnaire Feeling of Stress : Only a little Social Connections: Moderately Isolated (01/27/2020) [facility] Social Connection and Isolation Panel [NHANES] Frequency of Communication with Friends and Family: More than three times a week Frequency of Social Gatherings with Friends and Family: Twice a week Attends Rastafarian Services: Never Active Member of Clubs or Organizations: No Attends Club or Organization Meetings: Never Marital Status: Housing Stability: Low Risk (01/27/2020) Re[facility] from [facility] Housing Stability Vital Sign Unable to [...] (more content not included)... Normal [facility] POC BASIC METABOLIC PANEL - Seda 03-11-2024 Chloride [Moles/Vol] 104 mmol/L Normal 98-108 [facility] Comment on above: Order Comment: Injur y/Trauma or Illness?:Illness/Other How long have you had these symptoms (acute/chronic)?:Acute Reason for exam?:sudden onset of lower abd and right sided back pain in the night hx of ovarian cyst and endometreosis Type of Exam?:Initial Additional signs and symptoms?:na CO2 [Moles/Vol] 26 mmol/L Normal 21-32 [facility] Comment on above: Order Comment: Injur y/Trauma or Illness?:Illness/Other How long have you had these symptoms (acute/chronic)?:Acute Reason for exam?:sudden onset of lower abd and right sided back pain in the night hx of ovarian cyst and endometreosis Type of Exam?:Initial Additional signs and symptoms?:na Creatinine [Mass/Vol] 0.64 mg/dL Normal 0.40-1.10 [facility] Comment on above: Order Comment: Injur y/Trauma or Illness?:Illness/Other How long have you had these symptoms (acute/chronic)?:Acute Reason for exam?:sudden onset of lower abd and right sided back pain in the night hx of ovarian cyst and endometreosis Type of Exam?:Initial Additional signs and symptoms?:na Glucose [Mass/Vol] 108 mg/dL High 65-99 [facility] Comment on above: Order Comment: Injur y/Trauma or Illness?:Illness/Other How long have you had these symptoms (acute/chronic)?:Acute Reason for exam?:sudden onset of lower abd and right sided back pain in the night hx of ovarian cyst and endometreosis Type of Exam?:Initial Additional signs and symptoms?:na POC GFR 118 mL/min/1.73 m2 Normal >=60 [facility] Comment on above: Order Comment: Injur y/Trauma [...] CALCIUM 4.9 mg/dL Normal 4.5-5.3 [facility] Comment on above: Order Comment: Injur y/Trauma or Illness?:Illness/Other How long have you had these symptoms (acute/chronic)?:Acute Reason for exam?:sudden onset of lower abd and right sided back pain in the night hx of ovarian cyst and endometreosis Type of Exam?:Initial Additional signs and symptoms?:na Potassium [Moles/Vol] 3.8 mmol/L Normal 3.5-5.1 [facility] Comment on above: Order Comment: Injur y/Trauma or Illness?:Illness/Other How long have you had these symptoms (acute/chronic)?:Acute Reason for exam?:sudden onset of lower abd and right sided back pain in the night hx of ovarian cyst and endometreosis Type of Exam?:Initial Additional signs and symptoms?:na Sodium [Moles/Vol] 142 mmol/L Normal 135-145 [facility] Comment on above: Order Comment: Injur y/Trauma or Illness?:Illness/Other How long have you had these symptoms (acute/chronic)?:Acute Reason for exam?:sudden onset of lower abd and right sided back pain in the night hx of ovarian cyst and endometreosis Type of Exam?:Initial Additional signs and symptoms?:na Urea nitrogen [Mass/Vol] 8 mg/dL Normal 8-25 [facility] Comment on above: Order Comment: Injur y/Trauma or Illness?:Illness/Other How long have you had these symptoms (acute/chronic)?:Acute Reason for exam?:sudden onset of lower abd and right sided back pain in the night hx of ovarian cyst and endometreosis Type of Exam?:Initial Additional signs and symptoms?:na POC CBC AND DIFFERENTIALon 1 BASOPHILS ABSOLUTE COUNT 0.02 K/mcL Normal 0.00-0.30 [facility] Basophils/100 WBC (Bld) 0.4 % Normal [facility] Eosinophils (Bld) [#/Vol] 0.22 10*3/uL Normal 0.00-0.50 [facility] Eosinophils/100 WBC (Bld) 4.8 % Normal [facility] Erythrocyte distribution width (RBC) [Ratio] 12.8 % Normal 11.6-14.8 [facility] Hematocrit (Bld) [Volume fraction] 42.6 % Normal 36.0-46.0 [facility] Hemoglobin (Bld) [Mass/Vol] 14.2 g/dL Normal 12.0-16.0 [facility] IG ABSOLUTE 0.01 K/mcL Normal 0.00-0.30 [facility] IG PERCENT 0.20 % Normal [facility] Comment on above: Result Comment: The IG parameter is the percentage of metamyelocytes, myelocytes and promyelocytes. An immature granulocyte count (IG) of 1% or more suggests the possibility of infection, an IG count of 3% is very likely related to an infection. Lymphocytes (Bld) [#/Vol] 1.47 10*3/uL Normal 0.90-4.00 [facility] Lymphocytes/100 WBC (Bld) 32.0 % Normal [facility] MCH (RBC) [Entitic mass] 28.7 pg Normal 26.0-34.0 [facility] MCV (RBC) [Entitic vol] 86.1 fL Normal 80.0-100.0 [facility] MEAN CORPUSCULAR HEMOGLOBIN CONC 33.3 g/dL Normal 31.0-37.0 [facility] Monocytes (Bld) [#/Vol] 0.43 10*3/uL Normal 0.30-0.90 [facility] Monocytes/100 WBC (Bld) 9.4 % Normal [facility] NEUTROPHILS ABSOLUTE COUNT 2.44 K/mcL Normal 1.70-7.00 [facility] Neutrophils/100 WBC (Bld) 53.2 % Normal [facility] Platelet mean volume (Bld) [Entitic vol] 10.8 fL Normal 9.4-12.4 [facility] Platelets (Bld) [#/Vol] 149 10*3/uL Low 150-400 [facility] RBC (Bld) [#/Vol] 4.95 10*6/uL Normal 4.00-5.20 [facility] WBC (Bld) [#/Vol] 4.59 10*3/uL Normal 4.50-11.00 [facility] POC PT-INR - [facility] 03-11-20 24 POC INR (SIG ELITE) 1.4 High 0.8-1.1 [facility] ED Prov Noteon 03-07-2024 ED Prov Note HPI: 03/07/2024, Time: @NOWNR@ Lana Miguel is a 38 y.o. female presenting [...] PAST HISTORY Past Medical History: @[facility]@ Past Surgical History: has a [...] (more content not included)... Normal [facility] ED Prov Noteon 03-04-2024 ED Prov Note [place] ED Physician Note: NAME: Lana Rivera 38 y.o. CSN: [id number] PCP: Aleena London MD ED Course / [...] Resource Strain: High Risk (02/19/2020) Received from [facility] Overall Financial Resource Strain (CARDIA) Difficulty of Paying Living Expenses: Hard Food Insecurity: No Food Insecurity (02/19/2020) Received from [facility] Hunger Vital Sign Worried About Running Out of Food in the Last Year: Never true Ran Out of Food in the Last Year: Never true Transportation Needs: No Transportation Needs (02/19/2020) Received from [facility] PRAPARE - Transportation Lack of Transportation (Medical): No Lack of Transportation (Non-Medical): No Physical Activity: Insufficiently Active (01/27/2020) Received from [facility] Exercise Vital Sign Days of Exercise per Week: 2 days Minutes of Exercise per Session: 20 min Stress: No Stress Concern Present (01/27/2020) Received from [facility] [employer] - Occupational Stress Questionnaire Feeling of Stress : Only a little Social Connections: Moderately Isolated (01/27/2020) Received from [facility] Social Connection and Isolation Panel [NHANES] Frequency of Communication with Friends and Family: More than three times a week Frequency of Social Gatherings with Friends and Family: Twice a week Attends Rastafarian Services: Never Active Member of Clubs or Organizations: No Attends Club or Organization Meetings: Never Marital Status: Housing Stability: Low Risk (01/27/2020) Received from [facility] Housing Stability Vital Sign Unable to [...] a day as (more content not included)... [facility] XR FOREARM LEFT 2 VIEWSon [...] ulnar shaft fractures with intact fixation hardware. /[facility] Workstation ID: [id number] Dictated by: JOHANNA MARCH on MonMar 04, 2024 1:11:34 PM EDT Transcribed by: FLO MOSS on MonMar 04, 2024 1:13:46 PM EDT Finalized by: JOHANNA MARCH on MonMar 04, 2024 10:23:51 PM EDT [facility] Comment on above: Order [...] normal limits. IMPRESSION: No acute osseous abnormality. [facility] Workstation ID: [id number] Dictated by: JOHANNA MARCH on MonMar 04, 2024 1:16:35 PM EDT Transcribed by: FLO MOSS on MonMar 04, 2024 1:21:46 PM EDT Finalized by: JOHANNA MARCH on MonMar 04, 2024 10:23:57 PM EDT [facility] Comment on above: Order [...] normal limits. IMPRESSION: No acute osseous abnormality. [facility] Workstation ID: [id number] Dictated by: JOHANNA MARCH on MonMar 04, 2024 1:13:20 PM EDT Transcribed by: FLO MOSS on MonMar 04, 2024 1:17:08 PM EDT Finalized by: JOHANNA MARCH on MonMar 04, 2024 10:27:17 PM EDT [facility] Comment on above: Order Comment: Injur y/Trauma or Illness?:Illness/Other How long have you had these symptoms (acute/chronic)?:Acute Reason for exam?:sudden onset of lower abd and right sided back pain in the night hx of ovarian cyst and endometreosis Type of Exam?:Initial Additional signs and symptoms?:na ED Prov Noteon 02-23-2024 ED Prov Note [facility] EM[facility]Y [facility]PART[facility] ATTENDING NOTE: NAME: Lana Rivera CSN: [id number] 38 y.o. PCP: Aleena London MD History: [...] of Percocet until she may follow-up with [facility]. After reviewing the items above, I did [...] Never Vaping Use (more content not included)... [facility] CT ABDOMEN PELVIS WITH IV [...] on MonFeb 20, 2024 11:00:04 AM EDT [facility] Comment on above: Order Comment: Injur y/Trauma or Illness?:Illness/Other How long have you had these symptoms (acute/chronic)?:Acute Reason for exam?:lower GI bleed with abd pain Type of Exam?:Initial Additional signs and symptoms?:na ED Prov Noteon 02-20-2024 ED Prov Note ED PROVIDER NOTE [facility] NAME: Lana Rivera AGE: 38 y.o. : 1985 VISIT DATE: 02/20/2024 CSN: [id number] PCP: Aleena London MD Chief Complaint Patient [...] Resource Strain: High Risk (02/19/2020) Received from [facility] Overall Financial Resource Strain (CARDIA) Difficulty of Paying Living Expenses: Hard Food Insecurity: No Food Insecurity (02/19/2020) Received from [facility] Hunger Vital Sign Worried About Running Out of Food in the Last Year: Never true Ran Out of Food in the Last Year: Never true Transportation Needs: No Transportation Needs (02/19/2020) Received from [facility] PRAPARE - Transportation Lack of Transportation (Medical): No Lack of Transportation (Non-Medical): No Physical Activity: Insufficiently Active (01/27/2020) Received from [facility] Exercise Vital Sign Days of Exercise per Week: 2 days Minutes of Exercise per Session: 20 min Stress: No Stress Concern Present (01/27/2020) Received from [facility] [employer] - Occupational Stress Questionnaire Feeling of Stress : Only a little Social Connections: Moderately Isolated (01/27/2020) Received from [facility] Social Connection and Isolation Panel [NHANES] Frequency of Communication with Friends and Family: More than three times a week Frequency of Social Gatherings with Friends and Family: Twice a week Attends Rastafarian Services: Never Active Member of Clubs or Organizations: No Attends Club or Organization Meetings: Never Marital Status: Housing Stability: Low Risk (01/27/2020) Received from [facility] Housing Stability Vital Sign Unable to [...] (more content not included)... Normal [facility] POC CBC AND DIFFERENTIALon 1 BASOPHILS ABSOLUTE COUNT 0.03 K/mcL Normal 0.00-0.30 [facility] Basophils/100 WBC (Bld) 0.7 % Normal [facility] Eosinophils (Bld) [#/Vol] 0.17 10*3/uL Normal 0.00-0.50 [facility] Eosinophils/100 WBC (Bld) 3.9 % Normal [facility] Erythrocyte distribution width (RBC) [Ratio] 13.2 % Normal 11.6-14.8 [facility] Hematocrit (Bld) [Volume fraction] 42.1 % Normal 36.0-46.0 [facility] Hemoglobin (Bld) [Mass/Vol] 13.9 g/dL Normal 12.0-16.0 [facility] IG ABSOLUTE 0.02 K/mcL Normal 0.00-0.30 [facility] IG PERCENT 0.50 % Normal [facility] Comment on above: Result Comment: The IG parameter is the percentage of metamyelocytes, myelocytes and promyelocytes. An immature granulocyte count (IG) of 1% or more suggests the possibility of infection, an IG count of 3% is very likely related to an infection. Lymphocytes (Bld) [#/Vol] 1.20 10*3/uL Normal 0.90-4.00 [facility] Lymphocytes/100 WBC (Bld) 27.8 % Normal [facility] MCH (RBC) [Entitic mass] 28.6 pg Normal 26.0-34.0 [facility] MCV (RBC) [Entitic vol] 86.6 fL Normal 80.0-100.0 [facility] MEAN CORPUSCULAR HEMOGLOBIN CONC 33.0 g/dL Normal 31.0-37.0 [facility] Monocytes (Bld) [#/Vol] 0.39 10*3/uL Normal 0.30-0.90 [facility] Monocytes/100 WBC (Bld) 9.0 % Normal [facility] NEUTROPHILS ABSOLUTE COUNT 2.51 K/mcL Normal 1.70-7.00 [facility] Neutrophils/100 WBC (Bld) 58.1 % Normal [facility] Platelet mean volume (Bld) [Entitic vol] 11.0 fL Normal 9.4-12.4 [facility] Platelets (Bld) [#/Vol] 161 10*3/uL Normal 150-400 [facility] RBC (Bld) [#/Vol] 4.86 10*6/uL Normal 4.00-5.20 [facility] WBC (Bld) [#/Vol] 4.32 10*3/uL Low 4.50-11.00 [facility] POC LIVER PANEL PLUS [facility] 02-20-2024 Albumin [Mass/Vol] 4.0 g/dL Normal 3.2-5.2 [facility] ALP [Catalytic activity/Vol] 52 U/L Normal 40-140 [facility] ALT [Catalytic activity/Vol] 29 U/L Normal 0-40 [facility] Amylase [Catalytic activity/Vol] 26 U/L Normal 25-115 [facility] Amylase [Catalytic activity/Vol] 16 U/L Normal 7-33 [facility] AST [Catalytic activity/Vol] 25 U/L Normal 0-45 [facility] Bilirubin [Mass/Vol] 0.7 mg/dL Normal 0.0-1.3 [facility] Protein [Mass/Vol] 6.8 g/dL Normal 6.0-8.0 [facility] Beta HCG ( test) Ql (U) Negative Normal Negative [facility] Comment on above: Order Comment: Negat jimmie: Dilute urine specimens, as indicated by a low specific gravity (<1.010) may not contain representitive levels of hCG. If is still suspected, a serum test or repeat urine test using a first morning urine specimen should be considered. POC PT-INR - [facility] 02-20-20 24 POC INR (SIG ELITE) 1.7 High 0.8-1.1 [facility] POC [facility] BILIRUBIN, URINE Negative Normal Negative [facility] POC BLOOD, URINE Negative Normal Negative [facility] POC GLUCOSE, URINE Negative Normal Negative [facility] POC KETONES, URINE Negative Normal Negative [facility] POC LEUKOCYTE ESTERASE, URINE Negative Normal Negative [facility] POC NITRITE, URINE Negative Normal Negative [facility] POC PH, URINE 7.0 Normal 5.0-7.0 [facility] POC PROTEIN, URINE Negative Normal Negative [facility] POC SPECIFIC GRAVITY 1.020 Normal 1.005-1.025 [facility] POC UROBILINOGEN 0.2 mg/dL Normal < 2.0 [facility] POC VBG (EPOC) WITH FULL BARNES EL [facility] 02-20-2024 BASE EXCESS, VENOUS -0.6 Normal -2.0-2.0 [facility] Comment on above: Order Comment: Negat jimmie: Dilute urine specimens, as indicated by a low specific gravity (<1.010) may not contain representitive levels of hCG. If is still suspected, a serum test or repeat urine test using a first morning urine specimen should be considered. CALCIUM IONIZED 4.7 mg/dL Normal 4.5-5.3 [facility] Comment on above: Order Comment: Negat jimmie: Dilute urine specimens, as indicated by a low specific gravity (<1.010) may not contain representitive levels of hCG. If is still suspected, a serum test or repeat urine test using a first morning urine specimen should be considered. Chloride [Moles/Vol] 105 mmol/L Normal 98-108 [facility] Comment on above: Order Comment: Negat jimmie: Dilute urine specimens, as indicated by a low specific gravity (<1.010) may not contain representitive levels of hCG. If is still suspected, a serum test or repeat urine test using a first morning urine specimen should be considered. Creatinine [Mass/Vol] 0.73 mg/dL Normal 0.40-1.10 [facility] Comment on above: Order Comment: Negat jimmie: Dilute urine specimens, as indicated by a low specific gravity (<1.010) may not contain representitive levels of hCG. If is still suspected, a serum test or repeat urine test using a first morning urine specimen should be considered. Glucose [Mass/Vol] 117 mg/dL High 65-99 [facility] Comment on above: Order Comment: Negat jimmie: Dilute urine specimens, as indicated by a low specific gravity (<1.010) may not contain representitive levels of hCG. If is still suspected, a serum test or repeat urine test using a first morning urine specimen should be considered. HCO3 (Bld) [Moles/Vol] 24.9 mmol/L Normal 24.0-28.0 [facility] Comment on above: Order Comment: Negat jimmie: Dilute urine specimens, as indicated by a low specific gravity (<1.010) may not contain representitive levels of hCG. If is still suspected, a serum test or repeat urine test using a first morning urine specimen should be considered. Hematocrit (Bld) [Volume fraction] 42 % Normal 36-46 [facility] Comment on above: Order Comment: Negat jimmie: Dilute urine specimens, as indicated by a low specific gravity (<1.010) may not contain representitive levels of hCG. If is still suspected, a serum test or repeat urine test using a first morning urine specimen should be considered. HEMOGLOBIN, CALCULATED 14.2 g/dL Normal 12.0-16.0 [facility] Comment on above: Order Comment: Negat jimmie: Dilute urine specimens, as indicated by a low specific gravity (<1.010) may not contain representitive levels of hCG. If is still suspected, a serum test or repeat urine test using a first morning urine specimen should be considered. Oxygen saturation in Blood 55.2 % Normal 40.0-70.0 [facility] Comment on above: Order Comment: Negat jimmie: Dilute urine specimens, as indicated by a low specific gravity (<1.010) may not contain representitive levels of hCG. If is still suspected, a serum test or repeat urine test using a first morning urine specimen should be considered. PCO2 VENOUS 43.0 mm Hg Normal 41.0-51.0 [facility] Comment on above: Order Comment: Negat jimmie: Dilute urine specimens, as indicated by a low specific gravity (<1.010) may not contain representitive levels of hCG. If is still suspected, a serum test or repeat urine test using a first morning urine specimen should be considered. PH VENOUS 7.37 Normal 7.32-7.42 [facility] Comment on above: Order Comment: Negat jimmie: Dilute urine specimens, as indicated by a low specific gravity (<1.010) may not contain representitive levels of hCG. If is still suspected, a serum test or repeat urine test using a first morning urine specimen should be considered. PO2 VENOUS 30 mm Hg Normal 25-40 [facility] Comment on above: Order Comment: Negat jimmie: Dilute urine specimens, as indicated by a low specific gravity (<1.010) may not contain representitive levels of hCG. If is still suspected, a serum test or repeat urine test using a first morning urine specimen should be considered. POC GFR 109 mL/min/1.73 m2 Normal >=60 [facility] Comment on above: Order Comment: Negat jimmie: [...] LACTATE 1.3 mmol/L Normal 0.6-2.0 [facility] Comment on above: Order Comment: Negat jimmie: Dilute urine specimens, as indicated by a low specific gravity (<1.010) may not contain representitive levels of hCG. If is still suspected, a serum test or repeat urine test using a first morning urine specimen should be considered. Potassium [Moles/Vol] 3.9 mmol/L Normal 3.5-5.1 [facility] Comment on above: Order Comment: Negat jimmie: Dilute urine specimens, as indicated by a low specific gravity (<1.010) may not contain representitive levels of hCG. If is still suspected, a serum test or repeat urine test using a first morning urine specimen should be considered. Sodium [Moles/Vol] 139 mmol/L Normal 135-145 [facility] Comment on above: Order Comment: Negat jimmie: Dilute urine specimens, as indicated by a low specific gravity (<1.010) may not contain representitive levels of hCG. If is still suspected, a serum test or repeat urine test using a first morning urine specimen should be considered. Urea nitrogen [Mass/Vol] 8 mg/dL Normal 8-25 [facility] Comment on above: Order Comment: Negat jimmie: Dilute urine specimens, as indicated by a low specific gravity (<1.010) may not contain representitive levels of hCG. If is still suspected, a serum test or repeat urine test using a first morning urine specimen should be considered. ED Prov Noteon 02-14-2024 ED Prov Note HPI: 02/14/2024, Time: @LIZZ@ Lana M Miguel is a 38 y.o. female presenting [...] PAST HISTORY Past Medical History: @[facility]@ Past Surgical History: has a [...] 3) . Follow-up: Aleena London MD [address] [facility] [address] In 3 days Final Impression: 1. Right ovarian cyst (Please note that portions of this note were completed with a voice recognition program. Efforts were made to edit the dictations but occasionally words are mis-transcribed.) Libertad Foster MD 02/14/24 1221 AUTHENTICATED BY LIBERTAD FOSTER, ON 02/14/2024 12:21:14 [facility] ED Prov Noteon 02-11-2024 ED Prov Note ED PROVIDER NOTE [facility] EM[facility]Y [facility]PART[facility] NAME: Lana Rivera AGE: 38 y.o. : 1985 VISIT DATE: 02/11/2024 CSN: [id number] PCP: Aleena London MD Chief Complaint Patient [...] Resource Strain: High Risk (02/19/2020) Received from [facility] Overall Financial Resource Strain (CARDIA) Difficulty of Paying Living Expenses: Hard Food Insecurity: No Food Insecurity (02/19/2020) Received from [facility] Hunger Vital Sign Worried About Running Out of Food in the Last Year: Never true Ran Out of Food in the Last Year: Never true Transportation Needs: No Transportation Needs (02/19/2020) Received from [facility] PRAPARE - Transportation Lack of Transportation (Medical): No Lack of Transportation (Non-Medical): No Physical Activity: Insufficiently Active (01/27/2020) Received from [facility] Exercise Vital Sign Days of Exercise per Week: 2 days Minutes of Exercise per Session: 20 min Stress: No Stress Concern Present (01/27/2020) Received from [facility] [employer] - Occupational Stress Questionnaire Feeling of Stress : Only a little Social Connections: Moderately Isolated (01/27/2020) Received from [facility] Social Connection and Isolation Panel [NHANES] Frequency of Communication with Friends and Family: More than three times a week Frequency of Social Gatherings with Friends and Family: Twice a week Attends Rastafarian Services: Never Active Member of Clubs or Organizations: No Attends Club or Organization Meetings: Never Marital Status: Housing Stability: Low Risk (01/27/2020) Received from [facility] Housing Stability Vital Sign Unable to [...] patient is ner (more content not included)... [facility] ED Prov Noteon 01-29-2024 ED Prov Note ED PROVIDER NOTE [facility] EM[facility] NAME: Lana Rivera AGE: 38 y.o. : 1985 VISIT DATE: 01/29/2024 CSN: [id number] PCP: Aleena London MD Chief Complaint Patient [...] Resource Strain: High Risk (02/19/2020) Received from [facility] Overall Financial Resource Strain (CARDIA) Difficulty of Paying Living Expenses: Hard Food Insecurity: No Food Insecurity (02/19/2020) Received from [facility] Hunger Vital Sign Worried About Running Out of Food in the Last Year: Never true Ran Out of Food in the Last Year: Never true Transportation Needs: No Transportation Needs (02/19/2020) Received from [facility] PRAPARE - Transportation Lack of Transportation (Medical): No Lack of Transportation (Non-Medical): No Physical Activity: Insufficiently Active (01/27/2020) Received from [facility] Exercise Vital Sign Days of Exercise per Week: 2 days Minutes of Exercise per Session: 20 min Stress: No Stress Concern Present (01/27/2020) Received from [facility] [employer] - Occupational Stress Questionnaire Feeling of Stress : Only a little Social Connections: Moderately Isolated (01/27/2020) Received from [facility] Social Connection and Isolation Panel [NHANES] Frequency of Communication with Friends and Family: More than three times a week Frequency of Social Gatherings with Friends and Family: Twice a week Attends Rastafarian Services: Never Active Member of Clubs or Organizations: No Attends Club or Organization Meetings: Never Marital Status: Housing Stability: Low Risk (01/27/2020) Received from [facility] Housing Stability Vital Sign Unable to [...] (more content not included)... Normal [facility] COVID-19, MOLECULARon 2023 SARS-CoV-2 (COVID-19) Ab IA Ql Not detected Normal Not Detected [facility] Comment on above: Result Comment: Test ing [...] ED Prov Note PCP - Lindy London gbe MD Chief Complaint Patient presents with Shoulder [...] supply per fill: (more content not included)... [facility] XR CHEST PA/APon 01-16-2024 XR [...] No evidence of pneumonia. No acute findings. DM/trw Workstation ID: [id number] Dictated by: SHILPI PATEL on MonJan 16, 2024 1:10:19 PM EDT Transcribed by: OLY TINAJERO on MonJan 16, 2024 1:25:31 PM EDT Finalized by: SHILPI PATEL on MonJan 16, 2024 4:29:21 PM EDT [facility] Comment on above: Order [...] a chronic AC joint separation. No change. DMG/mjr Workstation ID: [id number] Dictated by: SHILPI PATEL on MonJan 16, 2024 1:09:35 PM EDT Transcribed by: MARIO MEZA on MonJan 16, 2024 1:21:47 PM EDT Finalized by: SHILPI PATEL on MonJan 16, 2024 4:29:26 PM EDT [facility] Comment on above: Order Comment: Injur y/Trauma or Illness?:Illness/Other How long have you had these symptoms (acute/chronic)?:Acute Reason for exam?:lower GI bleed with abd pain Type of Exam?:Initial Additional signs and symptoms?:na ED Prov Noteon 01-07-2024 ED Prov Note ED PROVIDER NOTE [facility] EMERGENCY DEPART[facility] NAME: Lana Rivera AGE: 38 y.o. : 1985 VISIT DATE: 01/07/2024 CSN: [id number] PCP: Aleena London MD Chief Complaint Patient presents with Shoulder Pain Chief complaint shoulder pain History of present illness 38-year-old female who is here with left shoulder pain at the AC joint she went to [employer] the other day and [...] Resource Strain: High Risk (02/19/2020) Received from [facility] Overall Financial Resource Strain (CARDIA) Difficulty of Paying Living Expenses: Hard Food Insecurity: No Food Insecurity (02/19/2020) Received from [facility] Hunger Vital Sign Worried About Running Out of Food in the Last Year: Never true Ran Out of Food in the Last Year: Never true Transportation Needs: No Transportation Needs (02/19/2020) Received from [facility] PRAPARE - Transportation Lack of Transportation (Medical): No Lack of Transportation (Non-Medical): No Physical Activity: Insufficiently Active (01/27/2020) Received from [facility] Exercise Vital Sign Days of Exercise per Week: 2 days Minutes of Exercise per Session: 20 min Stress: No Stress Concern Present (01/27/2020) Received from [facility] - Occupational Stress Questionnaire Feeling of Stress : Only a little Social Connections: Moderately Isolated (01/27/2020) Received from [facility] Social Connection and Isolation Panel [NHANES] Frequency of Communication with Friends and Family: More than three times a week Frequency of Social Gatherings with Friends and Family: Twice a week Attends Rastafarian Services: Never Active Member of Clubs or Organizations: No Attends Club or Organization Meetings: Never Marital Status: Housing Stability: Low Risk (01/27/2020) Received from [facility] Housing Stability Vital Sign Unable to [...] (37.4 deg (more content not included)... Normal [facility] XR SHOULDER LEFT 2+ VIEWS (S TANDARD)on [...] ID: [id number] Dictated by: BELKYS KITCHEN on MonJan 07, 2024 8:59:23 AM EDT Transcribed by: FIDELINA BELKYS GERMÁN on [place] Jan 07, 2024 8:59:23 AM EDT Finalized by: BELKYS KITCHEN on MonJan 07, 2024 8:59:23 AM EDT [facility] Comment on above: Order Comment: Injur y/Trauma or Illness?:Illness/Other How long have you had these symptoms (acute/chronic)?:Acute Reason for exam?:sudden onset of lower abd and right sided back pain in the night hx of ovarian cyst and endometreosis Type of Exam?:Initial Additional signs and symptoms?:na ED Prov Noteon 12-01-2023 ED Prov Note ED PROVIDER NOTE [facility] EM[facility] DEPART[facility] NAME: Lana Rivera AGE: 38 y.o. : 1985 VISIT DATE: 12/01/2023 CSN: [id number] PCP: Aleena London MD Chief Complaint Patient [...] Resource Strain: High Risk (02/19/2020) Received from [facility] Overall Financial Resource Strain (CARDIA) Difficulty of Paying Living Expenses: Hard Food Insecurity: No Food Insecurity (02/19/2020) Received from [facility] Hunger Vital Sign Worried About Running Out of Food in the Last Year: Never true Ran Out of Food in the Last Year: Never true Transportation Needs: No Transportation Needs (02/19/2020) Received from [facility] PRAPARE - Transportation Lack of Transportation (Medical): No Lack of Transportation (Non-Medical): No Physical Activity: Insufficiently Active (01/27/2020) Received from [facility] Exercise Vital Sign Days of Exercise per Week: 2 days Minutes of Exercise per Session: 20 min Stress: No Stress Concern Present (01/27/2020) Received from [facility] - Occupational Stress Questionnaire Feeling of Stress : Only a little Social Connections: Moderately Isolated (01/27/2020) Received from [facility] Social Connection and Isolation Panel [NHANES] Frequency of Communication with Friends and Family: More than three times a week Frequency of Social Gatherings with Friends and Family: Twice a week Attends Rastafarian Services: Never Active Member of Clubs or Organizations: No Attends Club or Organization Meetings: Never Marital Status: Housing Stability: Low Risk (01/27/2020) Received from [facility] Housing Stability Vital Sign Unable to Pay for Housing in the Last Year: No Number of Places Lived in the Last Year: 1 In the last 12 months, was there a time when you did not have a steady place to sleep or slept in a detention (including now)?: No Previous Medications Medication Sig [...] a child Promet (more content not included)... [facility] XR ANKLE RIGHT 3+ VIEWS [...] normal limits. IMPRESSION: No acute osseous abnormality. ST/[facility] Workstation ID: [id number] Dictated by: JOHANNA MARCH on MonDec 01, 2023 1:52:10 PM EDT Transcribed by: CATINA NIEOT on MonDec 01, 2023 2:05:31 PM EDT Finalized by: JOHANNA MARCH on MonDec 01, 2023 4:58:59 PM EDT [facility] Comment on above: Order [...] radiopaque foreign body in the right foot. [employer] Workstation ID: [id number] -- NURSING NOTES AND [...] disc disease, will provide short course of Perkins for pain and patient to continue ketoprofen [...] total) by mouth (more content not included)... [facility] XR FOOT RIGHT 3+ VIEWS [...] radiopaque foreign body in the right foot. [employer] Workstation ID: [id number] Dictated by: GREYSON SCHROEDER on Sat Nov 25, 2023 9:36:41 AM EDT Transcribed by: KENNY ARRIAGA on Sat Nov 25, 2023 9:39:36 AM EDT Finalized by: GREYSON SCHROEDER on [facility] Nov 25, 2023 10:29:24 AM EDT [facility] Comment on above: Order [...] Auto (Unsp spec) [#/Vol] 1.56 10*3/uL 0.83-4.51 [facility] Automated lymphocyte count a s percentage of total leukocytesOrdered By: Sorin Jacobs on 09-29-2023 Lymphocytes/100 WBC Auto (Unsp spec) 26.8 % 19-41 [facility] Basophil percentageOrdered B y: Sorin Jacobs on 09-29-2023 Basophil percentage 14.4 g/dL 12.0-15.0 [facility] Basophils (Bld) [#/Vol] 5.8 10*3/uL 4.4-11.0 [facility] Basophils (Bld) [#/Vol] 3.5 10*3/uL 2.0-7.7 [facility] Basophils/100 WBC (Bld) 59.6 % 47-70 [facility] Basophils/100 WBC (Bld) 9.4 % 0-10 [facility] Basophils/100 WBC (Bld) 3.4 % 0-5 [facility] Basophils/100 WBC (Bld) 0.5 % 0-1 [facility] Determination of erythrocyte mean corpuscular volume (MCV)Ordered By: Sorin Jacobs on 09-29-2023 MCV (RBC) [Entitic vol] 86.0 fL 81-99 [facility] Erythrocyte distribution wid th ratioOrdered By: Sorin Jacobs on 09-29-2023 Erythrocyte distribution width (RBC) [Ratio] 13.2 % 11.6-14.6 [facility] Erythrocyte distribution wid th standard deviationOrdered By: Sorin Jacobs on 09-29-2023 Erythrocyte distribution width (RBC) [Entitic vol] 41.2 fL 35.1-43.9 [facility] Hematocrit Auto (Bld) [Volum e fraction]Ordered By: Sorinautumn Jacobs on 09-29-2023 Hematocrit (Bld) [Volume fraction] 44.4 % 37-47 [facility] Immature granulocytes/100 WB C Auto (Bld)Ordered By: Sorinautumn Jacobs on 09-29-2023 Immature granulocytes/100 WBC (Bld) 0.300 % 0.0-0.9 [facility] No Panel InformationOrdered By: Sorinautumn Jacobs on 09-29-2023 27.9 pg 27.0-32.0 [facility] 32.4 g/dL 32-36 [facility] 173 K/mm3 150-450 [facility] 10.6 fl 6.2-12.0 [facility] 0 % 0-5 [facility] RBC Auto (Bld) [#/Vol]Ordere d By: Sorin Jacobs on 09-29-2023 RBC (Bld) [#/Vol] 5.16 10*6/uL 4.2-5.4 [facility] Throat specimen bacteria gregorio ntification by cultureOrdered By: Oscar Fuller on 09-21-2023 Bacteria identified Cx Nom (Throat) streptococcus isolated. [facility] Rapid group A Streptococcus screen at point of careon 09-14-2023 S. pyogenes Ag IA.rapid Ql (Throat) Negative [facility] Absolute lymphocyte countOrd ered By: Irving Lobato on 09-05-2023 Lymphocytes Auto (Unsp spec) [#/Vol] 1.28 10*3/uL 0.83-4.51 [facility] Automated lymphocyte count a s percentage of total leukocytesOrdered By: Irving Lobato on 09-05-2023 Lymphocytes/100 WBC Auto (Unsp spec) 27.5 % 19-41 [facility] Basophil percentageOrdered B y: Irving Lobato on 09-05-2023 Basophil percentage 13.7 g/dL 12.0-15.0 [facility] Basophil percentage 109 mg/dL 74-106 [facility] Basophil percentage 7.1 g/dL 6.4-8.2 [facility] Basophil percentage 0.30 mg/dL 0.20-1.00 [facility] Basophil percentage 139 mmol/L 136-145 [facility] Basophil percentage 3.7 mmol/L 3.5-5.1 [facility] Basophil percentage 108 mmol/L 98-107 [facility] Basophils (Bld) [#/Vol] 4.7 10*3/uL 4.4-11.0 [facility] Basophils (Bld) [#/Vol] 2.7 10*3/uL 2.0-7.7 [facility] Basophils/100 WBC (Bld) 57.3 % 47-70 [facility] Basophils/100 WBC (Bld) 9.4 % 0-10 [facility] Basophils/100 WBC (Bld) 4.5 % 0-5 [facility] Basophils/100 WBC (Bld) 0.9 % 0-1 [facility] Chlamydia trachomatis rRNA d etection by probe and target amplification methodOrdered By: Diana Gunn on 09-05-2023 C. trachomatis rRNA JONE+probe Ql (Unsp spec) Negative Negative [facility] Determination of erythrocyte mean corpuscular volume (MCV)Ordered By: Irving Lobato on 09-05-2023 MCV (RBC) [Entitic vol] 83.8 fL 81-99 [facility] Erythrocyte distribution wid th ratioOrdered By: Irving Lobato on 09-05-2023 Erythrocyte distribution width (RBC) [Ratio] 12.6 % 11.6-14.6 [facility] Erythrocyte distribution wid th standard deviationOrdered By: Irving Lobato on 09-05-2023 Erythrocyte distribution width (RBC) [Entitic vol] 38.2 fL 35.1-43.9 [facility] Gram stain for investigation of transfusion reactionOrdered By: Diana Gunn on 09-05-2023 Microscopic observation Gram stain Nom (Unsp spec) [facility] HIV 1 and HIV-2 antibody ass ay with HIV-1 p24 antigen detectionOrdered By: Diana Gunn on 09-05-2023 HIV 1+2 Ab+HIV1 p24 Ag IA Ql Non-Reactive Nonreactive [facility] Hematocrit Auto (Bld) [Volum e fraction]Ordered By: Irving Lobato on 09-05-2023 Hematocrit (Bld) [Volume fraction] 41.0 % 37-47 [facility] Immature granulocytes/100 WB C Auto (Bld)Ordered By: Irving Lobato on 09-05-2023 Immature granulocytes/100 WBC (Bld) 0.400 % 0.0-0.9 [facility] No Panel InformationOrdered By: Diana Gunn on 09-05-[address] [facility] Yeast, not Chela albicans [facility] Non-Reactive Nonreactive [facility] No Panel InformationOrdered By: Irving Lobato on 09-05-2023 28.0 pg 27.0-32.0 [facility] 33.4 g/dL 32-36 [facility] 193 K/mm3 150-450 [facility] 10.9 fl 6.2-12.0 [facility] 0 % 0-5 [facility] 13.0 SECONDS 11.7-14.9 [facility] 1.0 [facility] 84 mL/min >60 [facility] 102 mL/min >60 [facility] 11.1 RATIO 10-20 [facility] 3.5 g/dL 2.2-4.2 [facility] 1.0 RATIO 0.9-2.4 [facility] 66 U/L 45-117 [facility] 24 U/L 13-56 [facility] 26.0 mmol/L 21.0-32.0 [facility] < 2.90 mg/L 0.0-3.0 [facility] 288 pg/mL 211-911 [facility] No Panel Informationon 09-[address] [facility] RBC Auto (Bld) [#/Vol]Ordere d By: Irving Lobato on 09-05-2023 RBC (Bld) [#/Vol] 4.89 10*6/uL 4.2-5.4 [facility] Serum Treponema species anti body detectionOrdered By: Diana Gunn on 09-05-2023 Treponema sp Ab Ql (S) Non-Reactive [facility] Serum or plasma calcium mg urement (mass/volume)Ordered By: Irving Lobato on 09-05-2023 Calcium [Mass/Vol] 8.5 mg/dL 8.5-10.1 [facility] Serum or plasma creatinine m easurement (mass/volume)Ordered By: Irving Lobato on 09-05-2023 Creatinine [Mass/Vol] 0.81 mg/dL 0.55-1.02 [facility] Serum or plasma thyroid stim ulating hormone (TSH) measurement (units/volume)Ordered By: Irving Lobato on 09-05-2023 TSH Qn 0.81 uIU/mL 0.358-3.74 [facility] Serum or plasma urea nitroge n measurement (mass/volume)Ordered By: Irving Lobato on 09-05-2023 Urea nitrogen [Mass/Vol] 9 mg/dL 7-18 [facility] Thin prep Papanicolaou smear with manual screeningOrdered By: Irving Lobato on 09-05-2023 Thin prep Papanicolaou smear with manual screening 3.6 g/dL 3.2-5.0 [facility] Thin prep Papanicolaou smear with manual screening 14 U/L 15-37 [facility] Thin prep Papanicolaou smear with manual screening 5 5-15 [facility] Thin prep Papanicolaou smear with manual screening 1.24 ng/dL 0.76-1.46 [facility] Whole blood hemoglobin A1c/t otal hemoglobin ratio (mass fraction)Ordered By: Irving Lobato on 09-05-2023 HbA1c (Bld) [Mass fraction] 5.6 % 3.8-5.6 [facility] Bacteria identified Cx Nom ( Throat)Ordered By: Oscar Fuller on 08-31-2023 Throat specimen bacteria identification by culture Streptococcus group A 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 Her Laboratory Coordinator is Dr. Garcia and Dr. Moore IMAGING: [...] breakfa (more content not included)... Normal [facility] Absolute lymphocyte countOrd ered By: Ashutosh Barajas on 07-25-2023 Lymphocytes Auto (Unsp spec) [#/Vol] 2.07 10*3/uL 0.83-4.51 [facility] Automated lymphocyte count a s percentage of total leukocytesOrdered By: Ashutosh Barajas on 07-25-2023 Lymphocytes/100 WBC Auto (Unsp spec) 31.5 % 19-41 [facility] Basophil percentageOrdered B y: Ashutosh Barajas on 07-25-2023 Basophil percentage 13.6 g/dL 12.0-15.0 [facility] Basophil percentage 103 mg/dL 74-106 [facility] Basophil percentage 139 mmol/L 136-145 [facility] Basophil percentage 3.6 mmol/L 3.5-5.1 [facility] Basophil percentage 110 mmol/L 98-107 [facility] Basophils (Bld) [#/Vol] 6.6 10*3/uL 4.4-11.0 [facility] Basophils (Bld) [#/Vol] 3.7 10*3/uL 2.0-7.7 [facility] Basophils/100 WBC (Bld) 56.2 % 47-70 [facility] Basophils/100 WBC (Bld) 7.5 % 0-10 [facility] Basophils/100 WBC (Bld) 4.1 % 0-5 [facility] Basophils/100 WBC (Bld) 0.5 % 0-1 [facility] Basophil percentageOrdered B y: ED PROVIDER on 07-25-2023 Basophil percentage 0 SEEN /hpf 0-5 [facility] Bilirubin Test strip Ql (U)O rdered By: ED PROVIDER on 07-25-2023 Bilirubin Ql (U) Negative Negative [facility] Determination of erythrocyte mean corpuscular volume (MCV)Ordered By: Ashutosh Barajas on 07-25-2023 MCV (RBC) [Entitic vol] 84.2 fL 81-99 [facility] Erythrocyte distribution wid th ratioOrdered By: Ashutosh Barajas on 07-25-2023 Erythrocyte distribution width (RBC) [Ratio] 12.7 % 11.6-14.6 [facility] Erythrocyte distribution wid th standard deviationOrdered By: Ashutosh Barajas on 07-25-2023 Erythrocyte distribution width (RBC) [Entitic vol] 38.5 fL 35.1-43.9 [facility] Hematocrit Auto (Bld) [Volum e fraction]Ordered By: Ashutosh Barajas on 07-25-2023 Hematocrit (Bld) [Volume fraction] 40.4 % 37-47 [facility] Immature granulocytes/100 WB C Auto (Bld)Ordered By: Ashutosh Barajas on 07-25-2023 Immature granulocytes/100 WBC (Bld) 0.200 % 0.0-0.9 [facility] Ketones Test strip Ql (U)Ord ered By: ED PROVIDER on 07-25-2023 Ketones Ql (U) Negative Negative [facility] Mucus LM Ql (Urine sed)Order ed By: ED PROVIDER on 07-25-2023 Mucus Ql (Urine sed) 0 SEEN /hpf [facility] Nitrite Test strip Ql (U)Ord ered By: ED PROVIDER on 07-25-2023 Nitrite Ql (U) Negative Negative [facility] No Panel InformationOrdered By: Ashutosh Barajas on 07-25-2023 28.3 pg 27.0-32.0 [facility] 33.7 g/dL 32-36 [facility] 179 K/mm3 150-450 [facility] 10.9 fl 6.2-12.0 [facility] 0 % 0-5 [facility] 101 mL/min >60 [facility] 122 mL/min >60 [facility] 137.22 ml/min [facility] 15.8 RATIO 10-20 [facility] 26.0 mmol/L 21.0-32.0 [facility] No Panel InformationOrdered By: ED PROVIDER on 07-25-2023 0 SEEN /hpf 0-5 [facility] Protein Test strip Ql (U)Ord ered By: ED PROVIDER on 07-25-2023 Protein Ql (U) Negative Negative [facility] RBC Auto (Bld) [#/Vol]Ordere d By: Ashutosh Barajas on 07-25-2023 RBC (Bld) [#/Vol] 4.80 10*6/uL 4.2-5.4 [facility] Serum or plasma calcium mg urement (mass/volume)Ordered By: Ashutosh Barajas on 07-25-2023 Calcium [Mass/Vol] 8.8 mg/dL 8.5-10.1 [facility] Serum or plasma creatinine m easurement (mass/volume)Ordered By: Ashutosh Barajas on 07-25-2023 Creatinine [Mass/Vol] 0.70 mg/dL 0.55-1.02 [facility] Serum or plasma urea nitroge n measurement (mass/volume)Ordered By: Ashutosh Barajas on 07-25-2023 Urea nitrogen [Mass/Vol] 11 mg/dL 7-18 [facility] Squamous epithelial cells de tection in urine sediment by light microscopyOrdered By: ED PROVIDER on 07-25-2023 Epithelial cells.squamous LM Ql (Urine sed) 0-5 SEEN /hpf 5-10 [facility] Thin prep Papanicolaou smear with manual screeningOrdered By: Ashutosh Barajas on 07-25-2023 Thin prep Papanicolaou smear with manual screening 3 5-15 [facility] Urine blood detectionOrdered By: ED PROVIDER on 07-25-2023 RBC Ql (U) Negative Negative [facility] Urine clarityOrdered By: ED PROVIDER on 07-25-2023 Clarity (U) Clear Clear [facility] Urine color determinationOrd ered By: ED PROVIDER on 07-25-2023 Color (U) Yellow Yellow [facility] Urine glucose detectionOrder ed By: ED PROVIDER on 07-25-2023 Glucose Ql (U) Normal mg/dl Normal [facility] Urine leukocyte esterase det ection by dipstickOrdered By: ED PROVIDER on 07-25-2023 Leukocyte esterase Test strip Ql (U) Negative Negative [facility] Urine pHOrdered By: ED PROVI TITA on 07-25-2023 pH (U) 6.0 [pH] 5.0 - 8.0 [facility] Urine sediment bacteria coun t by microscopy (number/high power field)Ordered By: ED PROVIDER on 07-25-2023 Bacteria LM.HPF (Urine sed) [#/Area] 0 /[HPF] None Seen [facility] Urine specific gravity measu rementOrdered By: ED PROVIDER on 07-25-2023 Specific gravity (U) [Rel density] 1.015 1.002-1.030 [facility] Urine urobilinogen measureme ntOrdered By: ED PROVIDER on 07-25-2023 Urobilinogen Ql (U) Normal mg/dl Normal [facility] No Panel InformationOrdered By: Ashutosh Barajas on 07-18-2023 < 0.27 FEU/ug/m 0.27-0.49 [facility] 178 U/L 26-192 [facility] Absolute lymphocyte countOrd ered By: Ralph Tracy on 05-03-2023 Lymphocytes Auto (Unsp spec) [#/Vol] 1.14 10*3/uL 0.83-4.51 [facility] Basophil percentageOrdered B y: Ralph Tracy on 05-03-2023 Basophil percentage 159 mg/dL 74-106 [facility] Basophil percentage 7.0 g/dL 6.4-8.2 [facility] Basophil percentage 0.40 mg/dL 0.20-1.00 [facility] Basophil percentage 137 mmol/L 136-145 [facility] Basophil percentage 3.6 mmol/L 3.5-5.1 [facility] Basophil percentage 107 mmol/L 98-107 [facility] Basophil percentage 13.0 umol/L 11-32 [facility] Basophil percentage 168 U/L 84-246 [facility] Basophil percentage Not Reportable [facility] Basophils (Bld) [#/Vol] 4.8 10*3/uL 4.4-11.0 [facility] Basophils (Bld) [#/Vol] 3.1 10*3/uL 2.0-7.7 [facility] Basophils/100 WBC (Bld) 65.8 % 47-70 [facility] Basophils/100 WBC (Bld) 3.8 % 0-5 [facility] Basophils/100 WBC (Bld) 0.6 % 0-1 [facility] Blood erythrocytes count (nu mber/volume)Ordered By: Ralph Tracy on 05-03-2023 RBC (Bld) [#/Vol] 5.11 10*6/uL 4.2-5.4 [facility] Blood hemoglobin measurement (mass/volume)Ordered By: Ralph Tracy on 05-03-2023 Hemoglobin (Bld) [Mass/Vol] 14.1 g/dL 12.0-15.0 [facility] Blood lymphocytes/100 leukoc ytesOrdered By: Ralph Tracy on 05-03-2023 Lymphocytes/100 WBC (Bld) 23.9 % 19-41 [facility] Blood monocytes/100 leukocyt esOrdered By: Ralph Tracy on 05-03-2023 Monocytes/100 WBC (Bld) 5.5 % 0-10 [facility] Blood platelet mean volumeOr dered By: Ralph Tracy on 05-03-2023 Platelet mean volume (Bld) [Entitic vol] 11.4 fL 6.2-12.0 [facility] Determination of erythrocyte mean corpuscular volume (MCV)Ordered By: Ralph Tracy on 05-03-2023 MCV (RBC) [Entitic vol] 86.3 fL 81-99 [facility] Erythrocyte sedimentation ra teOrdered By: Ralph Tracy on 05-03-2023 ESR (Bld) [Velocity] 2 mm[facility]h [facility] [facility] Hematocrit Auto (Bld) [Volum e fraction]Ordered By: Ralph Tracy on 05-03-2023 Hematocrit (Bld) [Volume fraction] 44.1 % 37-47 [facility] INR in Blood by Coagulation assayOrdered By: Ralph Tracy on 05-03-2023 INR Coag (Bld) [Relative time] 1.0 {INR} [facility] MCHC Auto (RBC) [Mass/Vol]Or dered By: Ralph Tracy on 05-03-2023 MCHC (RBC) [Mass/Vol] 32.0 g/dL 32-36 [facility] No Panel InformationOrdered By: Ralph Tracy on 05-03-2023 27.6 pg 27.0-32.0 [facility] 13.1 % 11.6-14.6 [facility] 40.8 fl 35.1-43.9 [facility] 0.400 % 0.0-0.9 [facility] 0 % 0-5 [facility] 13.2 SECONDS 11.7-14.9 [facility] 75 mL/min >60 [facility] 91 mL/min >60 [facility] 10.0 RATIO 10-20 [facility] 3.4 g/dL 2.2-4.2 [facility] 65 U/L 45-117 [facility] 20 U/L 13-56 [facility] 24.0 mmol/L 21.0-32.0 [facility] 22.6 ng/mL [facility] Negative Negative [facility] Not Reportable [facility] <2 U/mL 0-5 [facility] Platelets bldOrdered By: Mir Tracy on 05-03-2023 Platelets (Bld) [#/Vol] 180 10*3/uL 150-450 [facility] Serum DNA double strand anti body assay (units/volume)Ordered By: Ralph Tracy on 05-03-2023 DNA double strand Ab Qn (S) Not Reportable [facility] Serum Alise-1 antibody assay (u nits/volume)Ordered By: Ralph Tracy on 05-03-2023 Alise-1 extractable nuclear Ab Qn (S) Not Reportable [facility] Serum Scl-70 extractable nuc lear antibody assay (units/volume)Ordered By: Ralph Tracy on 05-03-2023 SCL-70 extractable nuclear Ab Qn (S) Not Reportable [facility] Serum Freedman extractable nucl ear antibody detectionOrdered By: Ralph Tracy on 05-03-2023 Freedman extractable nuclear Ab Ql (S) Not Reportable [facility] Serum or plasma C reactive p rotein measurement (mass/volume)Ordered By: Ralph Tracy on 05-03-2023 CRP [Mass/Vol] mg/L 0.0-3.0 [facility] Serum or plasma albumin mg urement (mass/volume)Ordered By: Ralph Tracy on 05-03-2023 Albumin [Mass/Vol] 3.6 g/dL 3.2-5.0 [facility] Serum or plasma albumin/glob ulin mass ratioOrdered By: Ralph Tracy on 05-03-2023 Albumin/Globulin [Mass ratio] 1.1 {ratio} 0.9-2.4 [facility] Serum or plasma [id number] protein tumor marker measurement (units/volume)Ordered By: Ralph Tracy on 05-03-2023 AFP.tumor marker Qn 2.2 ng/mL 0.0-6.4 [facility] Serum or plasma calcium mg urement (mass/volume)Ordered By: Ralph Tracy on 05-03-2023 Calcium [Mass/Vol] 8.9 mg/dL 8.5-10.1 [facility] Serum or plasma creatinine m easurement (mass/volume)Ordered By: Ralph Tracy on 05-03-2023 Creatinine [Mass/Vol] 0.90 mg/dL 0.55-1.02 [facility] Serum or plasma urea nitroge n measurement (mass/volume)Ordered By: Ralph Tracy on 05-03-2023 Urea nitrogen [Mass/Vol] 9 mg/dL 7-18 [facility] Thin prep Papanicolaou smear with manual screeningOrdered By: Ralph Tracy on 05-03-2023 Thin prep Papanicolaou smear with manual screening 8 U/L 15-37 [facility] Thin prep Papanicolaou smear with manual screening 6 5-15 [facility] No Panel Informationon 04-19 5.7 % 4.2-6.3 [facility] No Panel InformationOrdered By: Cassidy Moore on 04-06-2023 1.15 ng/dL 0.76-1.46 [facility] 4.7 mIU/mL [facility] 95.1 ug/dL 57.3-279.2 [facility] Serum or plasma 17-hydroxypr ogesterone measurement (mass/volume)Ordered By: Cassidy Moore on 04-06-2023 17-Hydroxyprogesterone [Mass/Vol] 17 ng/dL . [facility] Serum or plasma estradiol (E 2) measurement (mass/volume)Ordered By: Cassidy Moore on 04-06-2023 E2 [Mass/Vol] 29.2 pg/mL [facility] Serum or plasma testosterone free measurement (mass/volume)Ordered By: Cassidy Moore on 04-06-2023 Testosterone Free [Mass/Vol] 0.4 pg/mL 0.0-4.2 [facility] Basophil percentageOrdered B y: Ralph Tracy on 03-28-2023 Basophil percentage 109 mg/dL 74-106 [facility] Basophil percentage 6.9 g/dL 6.4-8.2 [facility] Basophil percentage 0.30 mg/dL 0.20-1.00 [facility] Basophil percentage 137 mmol/L 136-145 [facility] Basophil percentage 3.9 mmol/L 3.5-5.1 [facility] Basophil percentage 105 mmol/L 98-107 [facility] Direct bilirubinOrdered By: Ralph Tracy on 03-28-2023 Bilirubin.direct [Mass/Vol] 0.11 mg/dL 0.00-0.30 [facility] No Panel InformationOrdered By: Ralph Tracy on 03-28-2023 81 mL/min >60 [facility] 98 mL/min >60 [facility] 10.7 RATIO 10-20 [facility] 3.3 g/dL 2.2-4.2 [facility] 65 U/L 45-117 [facility] 23 U/L 13-56 [facility] 31.0 mmol/L 21.0-32.0 [facility] Serum or plasma albumin mg urement (mass/volume)Ordered By: Ralph Tracy on 03-28-2023 Albumin [Mass/Vol] 3.6 g/dL 3.2-5.0 [facility] Serum or plasma albumin/glob ulin mass ratioOrdered By: Ralph Tracy on 03-28-2023 Albumin/Globulin [Mass ratio] 1.1 {ratio} 0.9-2.4 [facility] Serum or plasma calcium mg urement (mass/volume)Ordered By: Ralph Tracy on 03-28-2023 Calcium [Mass/Vol] 9.0 mg/dL 8.5-10.1 [facility] Serum or plasma creatinine m easurement (mass/volume)Ordered By: Ralph Tracy on 03-28-2023 Creatinine [Mass/Vol] 0.84 mg/dL 0.55-1.02 [facility] Serum or plasma urea nitroge n measurement (mass/volume)Ordered By: Ralph Tracy on 03-28-2023 Urea nitrogen [Mass/Vol] 9 mg/dL 7-18 [facility] Thin prep Papanicolaou smear with manual screeningOrdered By: Ralph Tracy on 03-28-2023 Thin prep Papanicolaou smear with manual screening 12 U/L 15-37 [facility] Thin prep Papanicolaou smear with manual screening 1 5-15 [facility] No Panel InformationOrdered By: Aleena London on 03-03-2023 1.24 uIU/mL 0.358-3.74 [facility] Absolute lymphocyte countOrd ered By: Loly Sierra on 02-08-2023 Lymphocytes Auto (Unsp spec) [#/Vol] 1.87 10*3/uL 0.83-4.51 [facility] Basophil percentageOrdered B y: Loly Sierra on 02-08-2023 Basophil percentage 0 SEEN /hpf 0-5 [facility] Basophil percentage 110 mg/dL 74-106 [facility] Basophil percentage 6.7 g/dL 6.4-8.2 [facility] Basophil percentage 0.10 mg/dL 0.20-1.00 [facility] Basophil percentage 138 mmol/L 136-145 [facility] Basophil percentage 3.8 mmol/L 3.5-5.1 [facility] Basophil percentage 107 mmol/L 98-107 [facility] Basophils (Bld) [#/Vol] 5.6 10*3/uL 4.4-11.0 [facility] Basophils (Bld) [#/Vol] 2.9 10*3/uL 2.0-7.7 [facility] Basophils/100 WBC (Bld) 51.2 % 47-70 [facility] Basophils/100 WBC (Bld) 4.5 % 0-5 [facility] Basophils/100 WBC (Bld) 0.9 % 0-1 [facility] Bilirubin Test strip Ql (U)O rdered By: Loly Sierra on 02-08-2023 Bilirubin Ql (U) Negative Negative [facility] Blood erythrocytes count (nu mber/volume)Ordered By: Loly Sierra on 02-08-2023 RBC (Bld) [#/Vol] 4.74 10*6/uL 4.2-5.4 [facility] Blood hemoglobin measurement (mass/volume)Ordered By: Loly Sierra on 02-08-2023 Hemoglobin (Bld) [Mass/Vol] 13.2 g/dL 12.0-15.0 [facility] Blood lymphocytes/100 leukoc ytesOrdered By: Loly Sierra on 02-08-2023 Lymphocytes/100 WBC (Bld) 33.5 % 19-41 [facility] Blood monocytes/100 leukocyt esOrdered By: Loly Sierra on 02-08-2023 Monocytes/100 WBC (Bld) 9.5 % 0-10 [facility] Blood platelet mean volumeOr dered By: Loly Sierra on 02-08-2023 Platelet mean volume (Bld) [Entitic vol] 10.8 fL 6.2-12.0 [facility] Determination of erythrocyte mean corpuscular volume (MCV)Ordered By: Loly Sierra on 02-08-2023 MCV (RBC) [Entitic vol] 86.5 fL 81-99 [facility] Hematocrit Auto (Bld) [Volum e fraction]Ordered By: Loly Sierra on 02-08-2023 Hematocrit (Bld) [Volume fraction] 41.0 % 37-47 [facility] Ketones Test strip Ql (U)Ord ered By: Loly Sierra on 02-08-2023 Ketones Ql (U) Negative Negative [facility] MCHC Auto (RBC) [Mass/Vol]Or dered By: Loly Sierra on 02-08-2023 MCHC (RBC) [Mass/Vol] 32.2 g/dL 32-36 [facility] Mucus LM Ql (Urine sed)Order ed By: Loly Sierra on 02-08-2023 Mucus Ql (Urine sed) 0 SEEN /hpf [facility] Nitrite Test strip Ql (U)Ord ered By: Loly Sierra on 02-08-2023 Nitrite Ql (U) Negative Negative [facility] No Panel InformationOrdered By: Loly Sierra on 02-08-2023 27.8 pg 27.0-32.0 [facility] 13.0 % 11.6-14.6 [facility] 40.7 fl 35.1-43.9 [facility] 0.400 % 0.0-0.9 [facility] 0 % 0-5 [facility] 86 mL/min >60 [facility] 104 mL/min >60 [facility] 90.75 ml/min [facility] 12.4 RATIO 10-20 [facility] 3.2 g/dL 2.2-4.2 [facility] 61 U/L 45-117 [facility] 24 U/L 13-56 [facility] 27.0 mmol/L 21.0-32.0 [facility] Platelets bldOrdered By: Reyna Sierra on 02-08-2023 Platelets (Bld) [#/Vol] 177 10*3/uL 150-450 [facility] Protein Test strip Ql (U)Ord ered By: Loly Sierra on 02-08-2023 Protein Ql (U) Negative Negative [facility] Serum or plasma albumin mg urement (mass/volume)Ordered By: Loly Sierra on 02-08-2023 Albumin [Mass/Vol] 3.5 g/dL 3.2-5.0 [facility] Serum or plasma albumin/glob ulin mass ratioOrdered By: Loly Sierra on 02-08-2023 Albumin/Globulin [Mass ratio] 1.1 {ratio} 0.9-2.4 [facility] Serum or plasma calcium mg urement (mass/volume)Ordered By: Loly Sierra on 02-08-2023 Calcium [Mass/Vol] 8.8 mg/dL 8.5-10.1 [facility] Serum or plasma creatinine m easurement (mass/volume)Ordered By: Loly Sierra on 02-08-2023 Creatinine [Mass/Vol] 0.81 mg/dL 0.55-1.02 [facility] Serum or plasma urea nitroge n measurement (mass/volume)Ordered By: Loly Sierra on 02-08-2023 Urea nitrogen [Mass/Vol] 10 mg/dL 7-18 [facility] Squamous epithelial cells de tection in urine sediment by light microscopyOrdered By: Loly Sierra on 02-08-2023 Epithelial cells.squamous LM Ql (Urine sed) 0-5 SEEN /hpf 5-10 [facility] Thin prep Papanicolaou smear with manual screeningOrdered By: Loly Sierra on 02-08-2023 Thin prep Papanicolaou smear with manual screening 12 U/L 15-37 [facility] Thin prep Papanicolaou smear with manual screening 4 5-15 [facility] Urine blood detectionOrdered By: Loly Sierra on 02-08-2023 RBC Ql (U) Negative Negative [facility] RBC Ql (U) 0 SEEN /hpf 0-5 [facility] Urine clarityOrdered By: Reyna Sierra on 02-08-2023 Clarity (U) Clear Clear [facility] Urine color determinationOrd ered By: Loly Sierra on 02-08-2023 Color (U) Yellow Yellow [facility] Urine glucose detectionOrder ed By: Loly Sierra on 02-08-2023 Glucose Ql (U) Normal mg/dl Normal [facility] Urine leukocyte esterase det ection by dipstickOrdered By: Loly Sierra on 02-08-2023 Leukocyte esterase Test strip Ql (U) Negative Negative [facility] Urine pHOrdered By: Loly ferris on 02-08-2023 pH (U) 6.0 [pH] 5.0 - 8.0 [facility] Urine sediment bacteria coun t by microscopy (number/high power field)Ordered By: Loly Sierra on 02-08-2023 Bacteria LM.HPF (Urine sed) [#/Area] 0 /[HPF] None Seen [facility] Urine specific gravity measu rementOrdered By: Loly Sierra on 02-08-2023 Specific gravity (U) [Rel density] 1.020 1.002-1.030 [facility] Urobilinogen Auto test strip Ql (U)Ordered By: Loly Sierra on 02-08-2023 Urobilinogen Ql (U) Normal mg/dl Normal [facility] CNPNon [facility]02-2023 [facility] LANA RIVERA ([id number]) 1985 F Date Time Provider Department 02/02/23 NIMA KAUR During your visit today, we recorded the following information about you: Radha Stark 02/02/2023 2:03 PM Signed Lana Rivera is calling Nima Kaur MD today with concern regarding appointment on 02/06 with [facility]. Patient asking who scheduled appointment because she did not. Please return call to patient. Patient has been identified by name and birthdate. Duration of symptoms: N/A Person calling: self Call patient at: on cell [phone] (home) [phone] (cell) Was an appointment scheduled: No Closing statement: Results or non-symptom based questions: Thank you for calling [facility], your call will be returned within [...] Fully Assessed Reason for Visit: Patient Question [9627] Prescriptions as of 02/02/2023 - hydrOXYzine pamoate [...] by RIYA AGUILAR on 02/02/23 Normal [facility] Absolute lymphocyte countOrd ered By: Stephany Robbins on 12-25-2022 Lymphocytes Auto (Unsp spec) [#/Vol] 1.23 10*3/uL 0.83-4.51 [facility] Basophil percentageOrdered B y: Stephany Robbins on 12-25-2022 Basophil percentage 124 mg/dL 74-106 [facility] Basophil percentage 138 mmol/L 136-145 [facility] Basophil percentage 3.8 mmol/L 3.5-5.1 [facility] Basophil percentage 106 mmol/L 98-107 [facility] Basophils (Bld) [#/Vol] 4.6 10*3/uL 4.4-11.0 [facility] Basophils (Bld) [#/Vol] 2.7 10*3/uL 2.0-7.7 [facility] Basophils/100 WBC (Bld) 0.9 % 0-1 [facility] Basophils/100 WBC (Bld) 58.5 % 47-70 [facility] Basophils/100 WBC (Bld) 5.7 % 0-5 [facility] Chloride [Moles/Vol] 106 mmol/L 98-107 [facility] Eosinophils/100 WBC (Bld) 5.7 % 0-5 [facility] Glucose [Mass/Vol] 124 mg/dL 74-106 [facility] Comment on above: Fasting Glucose resu lt from 100 to 125 mg/dL suggests IMPAIRED HOMEOSTASIS per A.D.A. criteria. Neutrophils (Bld) [#/Vol] 2.7 10*3/uL 2.0-7.7 [facility] Neutrophils/100 WBC (Bld) 58.5 % 47-70 [facility] Potassium [Moles/Vol] 3.8 mmol/L 3.5-5.1 [facility] Sodium [Moles/Vol] 138 mmol/L 136-145 [facility] WBC (Bld) [#/Vol] 4.6 10*3/uL 4.4-11.0 [facility] Blood erythrocytes count (nu mber/volume)Ordered By: Stephany Robbins on 12-25-2022 RBC (Bld) [#/Vol] 4.87 10*6/uL 4.2-5.4 [facility] Blood hemoglobin measurement (mass/volume)Ordered By: Stephany Robbins on 12-25-2022 Hemoglobin (Bld) [Mass/Vol] 13.4 g/dL 12.0-15.0 [facility] Blood lymphocytes/100 leukoc ytesOrdered By: Stephany Robbins on 12-25-2022 Lymphocytes/100 WBC (Bld) 26.7 % 19-41 [facility] Blood monocytes/100 leukocyt esOrdered By: Stephany Robbins on 12-25-2022 Monocytes/100 WBC (Bld) 7.8 % 0-10 [facility] Blood platelet mean volumeOr dered By: Stephany Robbins on 12-25-2022 Platelet mean volume (Bld) [Entitic vol] 10.8 fL 6.2-12.0 [facility] Determination of erythrocyte mean corpuscular volume (MCV)Ordered By: Stephany Robbins on 12-25-2022 MCV (RBC) [Entitic vol] 86.4 fL 81-99 [facility] Hematocrit Auto (Bld) [Volum e fraction]Ordered By: Stephany Robbins on 12-25-2022 Hematocrit (Bld) [Volume fraction] 42.1 % 37-47 [facility] Laboratory - Chemistry and C hemistry - challengeOrdered By: Stephany Robbins on 12-25-2022 CO2 [Moles/Vol] 26.0 mmol/L 21.0-32.0 [facility] Urea nitrogen/Creatinine [Mass ratio] 11.3 mg/mg 10-20 [facility] Laboratory - Hematology and Cell countsOrdered By: Stephany Robbins on 12-25-2022 Erythrocyte distribution width (RBC) [Entitic vol] 40.4 fL 35.1-43.9 [facility] Erythrocyte distribution width (RBC) [Ratio] 13.0 % 11.6-14.6 [facility] Immature granulocytes/100 WBC (Bld) 0.400 % 0.0-0.9 [facility] Comment on above: IG% - Immature Granu locytes (promyelocytes, myelocytes and metamyelocytes) > 1% indicates that a LEFT SHIFT is Present. MCH (RBC) [Entitic mass] 27.5 pg 27.0-32.0 [facility] Nucleated RBC/100 WBC (Bld) [Ratio] 0 % 0-5 [facility] MCHC Auto (RBC) [Mass/Vol]Or dered By: Stephany Robbins on 12-25-2022 MCHC (RBC) [Mass/Vol] 31.8 g/dL 32-36 [facility] No Panel InformationOrdered By: Stephany Robbins on 12-25-2022 Estimated Creatinine Clearance Calc 103.53 ml/min [facility] Estimated GFR (MDRD) Amer 120 mL/min >60 [facility] Comment on above: GFR Calc Estimated GFR (MDRD) Non-Af Amer 100 mL/min >60 [facility] Comment on above: Non- GFR Calc Troponin I High Sensitivity 3 pg/mL 3.0-54.0 [facility] Comment on above: Please Note: New Chantal t Units and Gender Specific Reference Ranges. For more information see Policy Stat Procedure [place] High Sensitivity Troponin (TNIH) and attachments. 27.5 pg 27.0-32.0 [facility] 13.0 % 11.6-14.6 [facility] 40.4 fl 35.1-43.9 [facility] 0.400 % 0.0-0.9 [facility] 0 % 0-5 [facility] 100 mL/min >60 [facility] 120 mL/min >60 [facility] 103.53 ml/min [facility] 11.3 RATIO 10-20 [facility] 3 pg/mL 3.0-54.0 [facility] 26.0 mmol/L 21.0-32.0 [facility] Platelets bldOrdered By: Tegan Robbins on 12-25-2022 Platelets (Bld) [#/Vol] 158 10*3/uL 150-450 [facility] Serum or plasma calcium mg urement (mass/volume)Ordered By: Stephany Robbins on 12-25-2022 Calcium [Mass/Vol] 8.6 mg/dL 8.5-10.1 [facility] Serum or plasma creatinine m easurement (mass/volume)Ordered By: Stephany Robbins on 12-25-2022 Creatinine [Mass/Vol] 0.71 mg/dL 0.55-1.02 [facility] Comment on above: The validity of the calculated GFR & GFRAA in patients over 70 years has not been determined. Clinical correlation is essential. Serum or plasma urea nitroge n measurement (mass/volume)Ordered By: Stephany Robbins on 12-25-2022 Urea nitrogen [Mass/Vol] 8 mg/dL 7-18 [facility] Thin prep Papanicolaou smear with manual screeningOrdered By: Stephany Robbins on 12-25-2022 Thin prep Papanicolaou smear with manual screening 6 5-15 [facility] Chlamydia trachomatis rRNA d etection by probe and target amplification methodOrdered By: Hanh Balderas on 12-15-2022 C. trachomatis rRNA JONE+probe Ql (Unsp spec) Negative Negative [facility] Gram stain for investigation of transfusion reactionOrdered By: Hanh Balderas on 12-15-2022 Microscopic observation Gram stain Nom (Unsp spec) [facility] Microscopic observation Gram stain Nom (Unsp spec) [facility] Laboratory - Microbiology an d Antimicrobial susceptibilityOrdered By: Hanh Balderas on 12-15-2022 N. gonorrhoeae DNA JONE+probe Ql (Unsp spec) Negative Negative [facility] Comment on above: Performed at: =[address] [id number] Director: Love Vance MD, Phone: [phone] No Panel InformationOrdered By: Hanh Balderas on 12-15-[address] [facility] No Panel Informationon 12-15 POC Trichomonas (Rapid) Negative [facility] Negative [facility] Thin prep Papanicolaou smear with manual screeningOrdered By: Hanh Balderas on 12-15-2022 Thin prep Papanicolaou smear with manual screening [facility] Thin prep Papanicolaou smear with manual screening [facility] Absolute lymphocyte countOrd ered By: Jesi Padilla on 11-19-2022 Lymphocytes Auto (Unsp spec) [#/Vol] 1.83 10*3/uL 0.83-4.51 [facility] Basophil percentageOrdered B y: Jesi Padilla on 11-19-2022 Basophil percentage 95 mg/dL 74-106 [facility] Basophil percentage 7.4 g/dL 6.4-8.2 [facility] Basophil percentage 0.40 mg/dL 0.20-1.00 [facility] Basophil percentage 138 mmol/L 136-145 [facility] Basophil percentage 3.5 mmol/L 3.5-5.1 [facility] Basophil percentage 105 mmol/L 98-107 [facility] Basophils (Bld) [#/Vol] 6.0 10*3/uL 4.4-11.0 [facility] Basophils (Bld) [#/Vol] 3.3 10*3/uL 2.0-7.7 [facility] Basophils/100 WBC (Bld) 55.7 % 47-70 [facility] Basophils/100 WBC (Bld) 4.7 % 0-5 [facility] Basophils/100 WBC (Bld) 0.5 % 0-1 [facility] Bilirubin [Mass/Vol] 0.40 mg/dL 0.20-1.00 [facility] Comment on above: For patients on eltr ombopag therapy, use of Dimension [place] TBIL is not recommended. Chloride [Moles/Vol] 105 mmol/L 98-107 [facility] Eosinophils/100 WBC (Bld) 4.7 % 0-5 [facility] Glucose [Mass/Vol] 95 mg/dL 74-106 [facility] Neutrophils (Bld) [#/Vol] 3.3 10*3/uL 2.0-7.7 [facility] Neutrophils/100 WBC (Bld) 55.7 % 47-70 [facility] Potassium [Moles/Vol] 3.5 mmol/L 3.5-5.1 [facility] Protein [Mass/Vol] 7.4 g/dL 6.4-8.2 [facility] Sodium [Moles/Vol] 138 mmol/L 136-145 [facility] WBC (Bld) [#/Vol] 6.0 10*3/uL 4.4-11.0 [facility] Blood erythrocytes count (nu mber/volume)Ordered By: Jesi Padilla on 11-19-2022 RBC (Bld) [#/Vol] 4.91 10*6/uL 4.2-5.4 [facility] Blood hemoglobin measurement (mass/volume)Ordered By: Jesi Padilla on 11-19-2022 Hemoglobin (Bld) [Mass/Vol] 13.5 g/dL 12.0-15.0 [facility] Blood lymphocytes/100 leukoc ytesOrdered By: Jesi Padilla on 11-19-2022 Lymphocytes/100 WBC (Bld) 30.7 % 19-41 [facility] Blood monocytes/100 leukocyt esOrdered By: Jesi Padilla on 11-19-2022 Monocytes/100 WBC (Bld) 8.1 % 0-10 [facility] Blood platelet mean volumeOr dered By: Jesi Padilla on 11-19-2022 Platelet mean volume (Bld) [Entitic vol] 10.7 fL 6.2-12.0 [facility] Determination of erythrocyte mean corpuscular volume (MCV)Ordered By: Jesi Padilla on 11-19-2022 MCV (RBC) [Entitic vol] 85.3 fL 81-99 [facility] Hematocrit Auto (Bld) [Volum e fraction]Ordered By: Jesi Padilla on 11-19-2022 Hematocrit (Bld) [Volume fraction] 41.9 % 37-47 [facility] Laboratory - Chemistry and C hemistry - challengeOrdered By: Jesi Padilla on 11-19-2022 ALP [Catalytic activity/Vol] 74 U/L 45-117 [facility] ALT [Catalytic activity/Vol] 25 U/L 13-56 [facility] CO2 [Moles/Vol] 30.0 mmol/L 21.0-32.0 [facility] Globulin (S) [Mass/Vol] 3.7 g/dL 2.2-4.2 [facility] Lipase [Catalytic activity/Vol] 30 U/L 13-75 [facility] Comment on above: Please note:LIPASE r evised reference range effective 23. New Lipase methodology. Expected to produce lower values than the previous assay method. NEW Reference Range: 13 - 75 U/L Urea nitrogen/Creatinine [Mass ratio] 13.7 mg/mg 10-20 [facility] Laboratory - Hematology and Cell countsOrdered By: Jesi Padilla on 11-19-2022 Erythrocyte distribution width (RBC) [Entitic vol] 39.4 fL 35.1-43.9 [facility] Erythrocyte distribution width (RBC) [Ratio] 12.7 % 11.6-14.6 [facility] Immature granulocytes/100 WBC (Bld) 0.300 % 0.0-0.9 [facility] Comment on above: IG% - Immature Granu locytes (promyelocytes, myelocytes and metamyelocytes) > 1% indicates that a LEFT SHIFT is Present. MCH (RBC) [Entitic mass] 27.5 pg 27.0-32.0 [facility] Nucleated RBC/100 WBC (Bld) [Ratio] 0 % 0-5 [facility] MCHC Auto (RBC) [Mass/Vol]Or dered By: Jesi Padilla on 11-19-2022 MCHC (RBC) [Mass/Vol] 32.2 g/dL 32-36 [facility] No Panel InformationOrdered By: Jesi Padilla on 11-19-2022 Estimated Creatinine Clearance Calc 91.88 ml/min [facility] Estimated GFR (MDRD) Amer 105 mL/min >60 [facility] Comment on above: GFR Calc Estimated GFR (MDRD) Non-Af Amer 86 mL/min >60 [facility] Comment on above: Non- GFR Calc 27.5 pg 27.0-32.0 [facility] 12.7 % 11.6-14.6 [facility] 39.4 fl 35.1-43.9 [facility] 0.300 % 0.0-0.9 [facility] 0 % 0-5 [facility] 86 mL/min >60 [facility] 105 mL/min >60 [facility] 91.88 ml/min [facility] 13.7 RATIO 10-20 [facility] 3.7 g/dL 2.2-4.2 [facility] 30 U/L 13-75 [facility] 74 U/L 45-117 [facility] 25 U/L 13-56 [facility] 30.0 mmol/L 21.0-32.0 [facility] Platelets bldOrdered By: Emily Padilla on 11-19-2022 Platelets (Bld) [#/Vol] 194 10*3/uL 150-450 [facility] Serum or plasma albumin mg urement (mass/volume)Ordered By: Jesi Padilla on 11-19-2022 Albumin [Mass/Vol] 3.7 g/dL 3.2-5.0 [facility] Serum or plasma albumin/glob ulin mass ratioOrdered By: Jesi Padilla on 11-19-2022 Albumin/Globulin [Mass ratio] 1.0 {ratio} 0.9-2.4 [facility] Serum or plasma calcium mg urement (mass/volume)Ordered By: Jesi Padilla on 11-19-2022 Calcium [Mass/Vol] 9.2 mg/dL 8.5-10.1 [facility] Serum or plasma creatinine m easurement (mass/volume)Ordered By: Jesi Padilla on 11-19-2022 Creatinine [Mass/Vol] 0.80 mg/dL 0.55-1.02 [facility] Comment on above: The validity of the calculated GFR & GFRAA in patients over 70 years has not been determined. Clinical correlation is essential. Serum or plasma urea nitroge n measurement (mass/volume)Ordered By: Jesi Padilla on 11-19-2022 Urea nitrogen [Mass/Vol] 11 mg/dL 7-18 [facility] Thin prep Papanicolaou smear with manual screeningOrdered By: Jesi Padilla on 11-19-2022 Thin prep Papanicolaou smear with manual screening 15 U/L 15-37 [facility] Thin prep Papanicolaou smear with manual screening 3 5-15 [facility] CNOVSPon 11-16-2022 CNOVSP Visit (SP) Office (DEA) LANA RIVERA ([id number]) 1985 F Date Time Provider Department 11/16/22 [...] years as her is s/p vasectomy. Her Laboratory Coordinator is Dr. Garcia and Dr. Moore The [...] bleeding, vaginal discharge and vaginal pain. 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 Normal [facility] Trung 11-10-2022 CNPN Telephone (AGGSACHI B) LANA RIVERA ([id number]) 1985 F Date Time Provider Department 11/10/22 [...] by AZRA WEAVER on 11/10/22 [facility] Absolute lymphocyte countOrd ered By: Dr. Luis on 11-08-2022 Lymphocytes Auto (Unsp spec) [#/Vol] 1.54 10*3/uL 0.83-4.51 [facility] Basophil percentageOrdered B y: Dr. Luis on 11-08-2022 Basophil percentage 0 SEEN /hpf 0-5 [facility] Basophil percentage 84 mg/dL 74-106 [facility] Basophil percentage 7.6 g/dL 6.4-8.2 [facility] Basophil percentage 0.20 mg/dL 0.20-1.00 [facility] Basophil percentage 137 mmol/L 136-145 [facility] Basophil percentage 3.2 mmol/L 3.5-5.1 [facility] Basophil percentage 105 mmol/L 98-107 [facility] Basophils (Bld) [#/Vol] 5.7 10*3/uL 4.4-11.0 [facility] Basophils (Bld) [#/Vol] 3.2 10*3/uL 2.0-7.7 [facility] Basophils/100 WBC (Bld) 56.0 % 47-70 [facility] Basophils/100 WBC (Bld) 4.6 % 0-5 [facility] Basophils/100 WBC (Bld) 0.7 % 0-1 [facility] Basophil percentageOrdered B y: Dimple Luis on 11-08-2022 Bilirubin [Mass/Vol] 0.20 mg/dL 0.20-1.00 [facility] Comment on above: For patients on eltr ombopag therapy, use of Dimension [place] TBIL is not recommended. Chloride [Moles/Vol] 105 mmol/L 98-107 [facility] Eosinophils/100 WBC (Bld) 4.6 % 0-5 [facility] Glucose [Mass/Vol] 84 mg/dL 74-106 [facility] Neutrophils (Bld) [#/Vol] 3.2 10*3/uL 2.0-7.7 [facility] Neutrophils/100 WBC (Bld) 56.0 % 47-70 [facility] Potassium [Moles/Vol] 3.2 mmol/L 3.5-5.1 [facility] Protein [Mass/Vol] 7.6 g/dL 6.4-8.2 [facility] Sodium [Moles/Vol] 137 mmol/L 136-145 [facility] WBC (Bld) [#/Vol] 5.7 10*3/uL 4.4-11.0 [facility] Bilirubin Test strip Ql (U)O rdered By: Dr. Luis on 11-08-2022 Bilirubin Ql (U) Negative Negative [facility] Blood erythrocytes count (nu mber/volume)Ordered By: Dr. Luis on 11-08-2022 RBC (Bld) [#/Vol] 5.01 10*6/uL 4.2-5.4 [facility] Blood hemoglobin measurement (mass/volume)Ordered By: Dr. Luis on 11-08-2022 Hemoglobin (Bld) [Mass/Vol] 13.7 g/dL 12.0-15.0 [facility] Blood lymphocytes/100 leukoc ytesOrdered By: Dr. Luis on 11-08-2022 Lymphocytes/100 WBC (Bld) 27.2 % 19-41 [facility] Blood monocytes/100 leukocyt esOrdered By: Dr. Luis on 11-08-2022 Monocytes/100 WBC (Bld) 11.3 % 0-10 [facility] Blood platelet mean volumeOr dered By: Dr. Luis on 11-08-2022 Platelet mean volume (Bld) [Entitic vol] 11.3 fL 6.2-12.0 [facility] Determination of erythrocyte mean corpuscular volume (MCV)Ordered By: Dr. Luis on 11-08-2022 MCV (RBC) [Entitic vol] 85.2 fL 81-99 [facility] Direct bilirubinOrdered By: Dr. Luis on 11-08-2022 Bilirubin.direct [Mass/Vol] 0.07 mg/dL 0.00-0.30 [facility] Hematocrit Auto (Bld) [Volum e fraction]Ordered By: Dr. Luis on 11-08-2022 Hematocrit (Bld) [Volume fraction] 42.7 % 37-47 [facility] Ketones Test strip Ql (U)Ord ered By: Dr. Luis on 11-08-2022 Ketones Ql (U) Negative Negative [facility] Laboratory - Chemistry and C hemistry - challengeOrdered By: Dimple Luis on 11-08-2022 ALP [Catalytic activity/Vol] 72 U/L 45-117 [facility] ALT [Catalytic activity/Vol] 20 U/L 13-56 [facility] CO2 [Moles/Vol] 27.0 mmol/L 21.0-32.0 [facility] Globulin (S) [Mass/Vol] 3.8 g/dL 2.2-4.2 [facility] Lipase [Catalytic activity/Vol] 46 U/L 13-75 [facility] Comment on above: Please note:LIPASE r evised reference range effective 22. New Lipase methodology. Expected to produce lower values than the previous assay method. NEW Reference Range: 13 - 75 U/L Urea nitrogen/Creatinine [Mass ratio] 14.6 mg/mg 10-20 [facility] Laboratory - Hematology and Cell countsOrdered By: Dimple Luis on 11-08-2022 Erythrocyte distribution width (RBC) [Entitic vol] 39.6 fL 35.1-43.9 [facility] Erythrocyte distribution width (RBC) [Ratio] 12.9 % 11.6-14.6 [facility] Immature granulocytes/100 WBC (Bld) 0.200 % 0.0-0.9 [facility] Comment on above: IG% - Immature Granu locytes (promyelocytes, myelocytes and metamyelocytes) > 1% indicates that a LEFT SHIFT is Present. MCH (RBC) [Entitic mass] 27.3 pg 27.0-32.0 [facility] Nucleated RBC/100 WBC (Bld) [Ratio] 0 % 0-5 [facility] MCHC Auto (RBC) [Mass/Vol]Or dered By: Dr. Luis on 11-08-2022 MCHC (RBC) [Mass/Vol] 32.1 g/dL 32-36 [facility] Mucus LM Ql (Urine sed)Order ed By: Dr. Luis on 11-08-2022 Mucus Ql (Urine sed) 0 SEEN /hpf [facility] Nitrite Test strip Ql (U)Ord ered By: Dr. Luis on 11-08-2022 Nitrite Ql (U) Negative Negative [facility] No Panel InformationOrdered By: Dimple Luis on 11-08-2022 Estimated Creatinine Clearance Calc 98.01 ml/min [facility] Estimated GFR (MDRD) Amer 112 mL/min >60 [facility] Comment on above: GFR Calc Estimated GFR (MDRD) Non-Af Amer 93 mL/min >60 [facility] Comment on above: Non- GFR Calc No Panel InformationOrdered By: Dr. Luis on 11-08-2022 27.3 pg 27.0-32.0 [facility] 12.9 % 11.6-14.6 [facility] 39.6 fl 35.1-43.9 [facility] 0.200 % 0.0-0.9 [facility] 0 % 0-5 [facility] 93 mL/min >60 [facility] 112 mL/min >60 [facility] 98.01 ml/min [facility] 14.6 RATIO 10-20 [facility] 3.8 g/dL 2.2-4.2 [facility] 46 U/L 13-75 [facility] 72 U/L 45-117 [facility] 20 U/L 13-56 [facility] 27.0 mmol/L 21.0-32.0 [facility] Platelets bldOrdered By: Dr. Luis on 11-08-2022 Platelets (Bld) [#/Vol] 189 10*3/uL 150-450 [facility] Protein Test strip Ql (U)Ord ered By: Dr. Luis on 11-08-2022 Protein Ql (U) Negative Negative [facility] Serum or plasma albumin mg urement (mass/volume)Ordered By: Dr. Luis on 11-08-2022 Albumin [Mass/Vol] 3.8 g/dL 3.2-5.0 [facility] Serum or plasma calcium mg urement (mass/volume)Ordered By: Dr. Luis on 11-08-2022 Calcium [Mass/Vol] 9.3 mg/dL 8.5-10.1 [facility] Serum or plasma creatinine m easurement (mass/volume)Ordered By: Dr. Luis on 11-08-2022 Creatinine [Mass/Vol] 0.75 mg/dL 0.55-1.02 [facility] Comment on above: The validity of the calculated GFR & GFRAA in patients over 70 years has not been determined. Clinical correlation is essential. Serum or plasma urea nitroge n measurement (mass/volume)Ordered By: Dr. Luis on 11-08-2022 Urea nitrogen [Mass/Vol] 11 mg/dL 7-18 [facility] Squamous epithelial cells de tection in urine sediment by light microscopyOrdered By: Dr. Luis on 11-08-2022 Epithelial cells.squamous LM Ql (Urine sed) 0-5 SEEN /hpf 5-10 [facility] Thin prep Papanicolaou smear with manual screeningOrdered By: Dr. Luis on 11-08-2022 Thin prep Papanicolaou smear with manual screening 10 U/L 15-37 [facility] Thin prep Papanicolaou smear with manual screening 5 5-15 [facility] Urine blood detectionOrdered By: Dr. Luis on 11-08-2022 RBC Ql (U) Negative Negative [facility] RBC Ql (U) 0 SEEN /hpf 0-5 [facility] Urine clarityOrdered By: Dr. Luis on 11-08-2022 Clarity (U) Clear Clear [facility] Urine color determinationOrd ered By: Dr. Luis on 11-08-2022 Color (U) Yellow Yellow [facility] Urine glucose detectionOrder ed By: Dr. Luis on 11-08-2022 Glucose Ql (U) Normal mg/dl Normal [facility] Urine leukocyte esterase det ection by dipstickOrdered By: Dr. Luis on 11-08-2022 Leukocyte esterase Test strip Ql (U) Negative Negative [facility] Urine pHOrdered By: Dr. John apodaca on 11-08-2022 pH (U) 6.5 [pH] 5.0 - 8.0 [facility] Urine sediment bacteria coun t by microscopy (number/high power field)Ordered By: Dr. Luis on 11-08-2022 Bacteria LM.HPF (Urine sed) [#/Area] RARE /hpf None Seen [facility] Urine specific gravity measu rementOrdered By: Dr. Luis on 11-08-2022 Specific gravity (U) [Rel density] 1.015 1.002-1.030 [facility] Urobilinogen Auto test strip Ql (U)Ordered By: Dr. Luis on 11-08-2022 Urobilinogen Ql (U) Normal mg/dl Normal [facility] .Auto Diffon 10-11-2022 Basophil, Absolute 0.0 10 3/mcL Normal 0.0-0.2 [facility] ([place]) Comment on above: Performed By: #### A DIFFMARIBEL MDW, LIP, CBC, ANEU, GFR #### [address] [address] Basophils/100 WBC (Bld) 0.9 % Normal 0.0-2.5 [facility] ([place]) Comment on above: Performed By: #### A DIFFMARIBEL MDW, LIP, CBC, ANEU, GFR #### [address] [address] Eosinophil, Absolute 0.3 10 3/mcL Normal 0.0-0.4 [facility] ([place]) Comment on above: Performed By: #### A DIFF, MD MARIBELW, LIP, CBC, ANEU, GFR #### [address] [address] Eosinophils/100 WBC (Bld) 5.3 % Normal 0.0-7.0 [facility] ([place]) Comment on above: Performed By: #### A DIFF, CMP, MDW, LIP, CBC, ANEU, GFR #### [address] [address] Lymphocyte, Absolute 1.7 10 3/mcL Normal 0.8-3.9 [facility] ([place]) Comment on above: Performed By: #### A DIFF, CMP, MDW, LIP, CBC, ANEU, GFR #### [address] [address] Lymphocytes/100 WBC (Bld) 33.5 % Normal 10.0-50.0 [facility] ([place]) Comment on above: Performed By: #### A DIFF, CMP, MDW, LIP, CBC, ANEU, GFR #### [address] [address] Monocyte, Absolute 0.5 10 3/mcL Normal 0.2-1.0 [facility] ([place]) Comment on above: Performed By: #### A DIFF, CMP, MDW, LIP, CBC, ANEU, GFR #### [address] [address] Monocytes/100 WBC (Bld) 10.0 % Normal 1.7-13.0 [facility] ([place]) Comment on above: Performed By: #### A DIFF, CMP, MDW, LIP, CBC, ANEU, GFR #### [address] [address] Neutrophils/100 WBC (Bld) 50.3 % Normal 37.0-80.0 [facility] ([place]) Comment on above: Performed By: #### A DIFF, CMP, MDW, LIP, CBC, ANEU, GFR #### [address] [address] .GFRon 10-11-2022 GFR 102 ml/min/1.73sqm Normal [facility] ([place]) Comment on above: Result Comment: GFR Population [...] CMP, MDW, LIP, CBC, ANEU, GFR #### [address] [address] GFR Non- 84 ml/min/1.73sqm Normal [facility] ([place]) Comment on above: Result Comment: GFR Population [...] CMP, MDW, LIP, CBC, ANEU, GFR #### [address] [address] .MDWon 10-11-2022 Monocyte Distribution Width 17.66 Normal 0.00-20.00 [facility] ([place]) Comment on above: Result Comment: For ED adult patients suspected of sepsis, MDW<=20.0 does not rule out sepsis or risk of sepsis Performed By: #### A DIFF, CMP, MDW, LIP, CBC, ANEU, GFR #### [address] [address] .NEUABSon 10-11-2022 Neutrophil, Absolute 2.6 10 3/mcL Low 2.9-6.2 [facility] ([place]) Comment on above: Performed By: #### A DIFF, CMP, MDW, LIP, CBC, ANEU, GFR #### [place] [id number] CBCon 10-11-2022 Erythrocyte distribution width (RBC) [Ratio] 13.5 % Normal 11.5-14.5 [facility] ([place]) Comment on above: Performed By: #### A DIFF, CMP, MDW, LIP, CBC, ANEU, GFR #### [place] [address] Hematocrit (Bld) [Volume fraction] 40.8 % Normal 37.0-47.0 [facility] ([place]) Comment on above: Performed By: #### A DIFF, CMP, MDW, LIP, CBC, ANEU, GFR #### [place] [address] Hgb 13.7 G/dL Normal 12.0-16.0 [facility] ([place]) Comment on above: Performed By: #### A DIFF, CMP, MDW, LIP, CBC, ANEU, GFR #### [place] [id number] MCH (RBC) [Entitic mass] 28.0 pg Normal 27.0-31.2 [facility] ([place]) Comment on above: Performed By: #### A DIFF, CMP, MDW, LIP, CBC, ANEU, GFR #### [place] [address] MCHC 33.6 G/dL Normal 33.0-37.0 [facility] ([place]) Comment on above: Performed By: #### A DIFF, CMP, MDW, LIP, CBC, ANEU, GFR #### [place] [address] MCV (RBC) [Entitic vol] 83.2 fL Normal 80.0-94.0 [facility] ([place]) Comment on above: Performed By: #### A DIFF, CMP, MDW, LIP, CBC, ANEU, GFR #### [place] [id number] Platelet 171 10 3/mcL Normal 130-400 [facility] ([place]) Comment on above: Performed By: #### A DIFF, CMP, MDW, LIP, CBC, ANEU, GFR #### [address] [address] Platelet mean volume (Bld) [Entitic vol] 9.2 fL Normal 7.4-10.4 [facility] ([place]) Comment on above: Performed By: #### A DIFF, CMP, MDW, LIP, CBC, ANEU, GFR #### [address] [address] RBC 4.91 10 6/mcL Normal 4.20-5.40 [facility] ([place]) Comment on above: Performed By: #### A DIFF, CMP, MDW, LIP, CBC, ANEU, GFR #### [address] [address] WBC 5.2 10 3/mcL Normal 4.6-10.8 [facility] ([place]) Comment on above: Performed By: #### A DIFF, CMP, MDW, LIP, CBC, ANEU, GFR #### [address] [address] CMPon 10-11-2022 Albumin Level 3.9 G/dL Normal 3.5-5.0 [facility] ([place]) Comment on above: Performed By: #### A DIFF, CMP, MDW, LIP, CBC, ANEU, GFR #### [address] [address] Albumin/Globulin [Mass ratio] 1.3 {ratio} Normal 1.1-2.5 [facility] ([place]) Comment on above: Performed By: #### A DIFF, CMP, MDW, LIP, CBC, ANEU, GFR #### [address] [address] ALP [Catalytic activity/Vol] 78 U/L Normal 40-135 [facility] ([place]) Comment on above: Performed By: #### A DIFF, CMP, MDW, LIP, CBC, ANEU, GFR #### [address] [address] ALT [Catalytic activity/Vol] 17 U/L Normal 14-59 [facility] ([place]) Comment on above: Performed By: #### A DIFF, MARIBEL, W, LIP, CBC, ANEU, GFR #### [address] [address] AST [Catalytic activity/Vol] 11 U/L Normal 10-40 [facility] ([place]) Comment on above: Performed By: #### A DIFF, MARIBEL, MDW, LIP, CBC, ANEU, GFR #### [address] [address] Bili Total 0.2 mg/dL Normal 0.2-1.0 [facility] ([place]) Comment on above: Result Comment: Use of this assay is not recommended for patients undergoing treatment with eltrombopag due to the potential for falsely elevated results. Performed By: #### A DIFF, MARIBEL, LORI, LIP, CBC, ANEU, GFR #### [address] [address] BUN/Creatinine Ratio 12 ratio Normal 7-27 [facility] ([place] Comment on above: Performed By: #### A DIFF, MARIBEL, LORI, LIP, CBC, ANEU, GFR #### [address] [address] Calcium [Mass/Vol] 8.7 mg/dL Normal 8.4-10.2 [facility] ([place]) Comment on above: Performed By: #### A DIFF, MARIBEL, W, LIP, CBC, ANEU, GFR #### [address] [address] Chloride [Moles/Vol] 104 mmol/L Normal 98-107 [facility] ([place]) Comment on above: Performed By: #### A DIFF, MARIBEL, W, LIP, CBC, ANEU, GFR #### [address] [address] CO2 [Moles/Vol] 28 mmol/L Normal 22-29 [facility] ([place]) Comment on above: Performed By: #### A DIFF, MARIBEL, MDW, LIP, CBC, ANEU, GFR #### [address] [address] Creatinine [Mass/Vol] 0.78 mg/dL Normal 0.55-1.02 [facility] ([place]) Comment on above: Performed By: #### A DIFF, CMP, MDW, LIP, CBC, ANEU, GFR #### [address] [address] Electrolyte Balance 8.0 mEq/L Normal 4.0-15.0 [facility] ([place]) Comment on above: Performed By: #### A DIFF, CMP, MDW, LIP, CBC, ANEU, GFR #### [address] [address] Globulin 3.0 G/dL Normal [facility] ([place]) Comment on above: Performed By: #### A DIFF, CMP, MDW, LIP, CBC, ANEU, GFR #### [address] [address] Glucose [Mass/Vol] 106 mg/dL High 70-105 [facility] ([place]) Comment on above: Performed By: #### A DIFF, CMP, MDW, LIP, CBC, ANEU, GFR #### [address] [address] Potassium [Moles/Vol] 3.5 mmol/L Normal 3.5-5.1 [facility] ([place]) Comment on above: Performed By: #### A DIFF, CMP, MDW, LIP, CBC, ANEU, GFR #### [address] [address] Sodium [Moles/Vol] 140 mmol/L Normal 136-145 [facility] ([place]) Comment on above: Performed By: #### A DIFF, CMP, MDW, LIP, CBC, ANEU, GFR #### [address] [address] Total Protein 6.9 G/dL Normal 6.4-8.2 [facility] ([place]) Comment on above: Performed By: #### A DIFF, CMP, MDW, LIP, CBC, ANEU, GFR #### [facility] [address] [place], [place] [address] Urea nitrogen [Mass/Vol] 9 mg/dL Normal 7-18 [facility] ([place]) Comment on above: Performed By: #### A DIFF, CMP, MDW, LIP, CBC, ANEU, GFR #### [facility] [address] [place], [place] [address] CT ABD/PELVIS W/ IV CONTRAST ONLYon 10-11-2022 [...] 9:56:00 PM Ordering Provider: BALDO FENG Normal [facility] ([place]) LIPon 10-11-2022 Lipase Level 42 U/L Normal 16-77 [facility] ([place]) Comment on above: Performed By: #### A DIFF, CMP, MDW, LIP, CBC, ANEU, GFR #### [address] [address] UAon 10-11-2022 Color (U) Yellow Normal [facility] ([place]) Comment on above: Performed By: #### U A #### [address] [address] Glucose (U) [Mass/Vol] 100 mg/dL Abnormal Negative [facility] ([place]) Comment on above: Performed By: #### U A #### [address] [address] Ketones Ql (U) Negative Normal Negative [facility] ([place]) Comment on above: Performed By: #### U A #### [address] [address] UA Appear Clear Normal Clear [facility] ([place]) Comment on above: Performed By: #### U A #### [address] [address] UA Blood Negative Normal Negative [facility] ([place]) Comment on above: Performed By: #### U A #### [address] [address] UA Leuk Est Negative Normal Negative [facility] ([place]) Comment on above: Performed By: #### U A #### [address] [address] UA Nitrite Negative Normal Negative [facility] ([place]) Comment on above: Performed By: #### U A #### [address] [address] UA pH 7.0 Normal 5.0 - 8.0 [facility] ([place]) Comment on above: Performed By: #### U A #### [address] [place] [address] UA Protein Negative Normal Negative [facility] ([place]) Comment on above: Performed By: #### U A #### [place] [address] [place], [place] [address] UA Spec Grav 1.025 Normal 1.015-1.025 [facility] ([place]) Comment on above: Performed By: #### U A #### [address] [address] UA Specimen Type Clean Catch Normal [facility] ([place]) Comment on above: Performed By: #### U A #### [address] [address] UA Urobilinogen 0.2 E.U./dL Normal 0.2-1.0 [facility] ([place]) Comment on above: Performed By: #### U A #### [address] [address] Urobilinogen (U) [Mass/Vol] Negative Normal Negative [facility] ([place]) Comment on above: Performed By: #### U A #### [address] [address] Basophil percentageOrdered B y: Dr. Luis on 08-26-2022 Basophil percentage 104 mg/dL 74-106 [facility] Basophil percentage 139 mmol/L 136-145 [facility] Basophil percentage 3.7 mmol/L 3.5-5.1 [facility] Basophil percentage 106 mmol/L 98-107 [facility] Basophil percentageOrdered B y: Dimple Luis on 08-26-2022 Chloride [Moles/Vol] 106 mmol/L 98-107 [facility] Glucose [Mass/Vol] 104 mg/dL 74-106 [facility] Comment on above: Fasting Glucose resu lt from 100 to 125 mg/dL suggests IMPAIRED HOMEOSTASIS per A.D.A. criteria. Potassium [Moles/Vol] 3.7 mmol/L 3.5-5.1 [facility] Sodium [Moles/Vol] 139 mmol/L 136-145 [facility] Laboratory - Chemistry and C hemistry - challengeOrdered By: Dimple Luis on 08-26-2022 CO2 [Moles/Vol] 27.0 mmol/L 21.0-32.0 [facility] Urea nitrogen/Creatinine [Mass ratio] 9.2 mg/mg 10-20 [facility] No Panel InformationOrdered By: Dimple Luis on 08-26-2022 Estimated Creatinine Clearance Calc 96.72 ml/min [facility] Estimated GFR (MDRD) Amer 111 mL/min >60 [facility] Comment on above: GFR Calc Estimated GFR (MDRD) Non-Af Amer 92 mL/min >60 [facility] Comment on above: Non- GFR Calc No Panel InformationOrdered By: Dr. Luis on 08-26-2022 92 mL/min >60 [facility] 111 mL/min >60 [facility] 96.72 ml/min [facility]. [facility] 9.2 RATIO 10-20 [facility] 27.0 mmol/L 21.0-32.0 [facility] Serum or plasma calcium mg urement (mass/volume)Ordered By: Dr. Luis on 08-26-2022 Calcium [Mass/Vol] 8.6 mg/dL 8.5-10.1 [facility] Serum or plasma creatinine m easurement (mass/volume)Ordered By: Dr. Luis on 08-26-2022 Creatinine [Mass/Vol] 0.76 mg/dL 0.55-1.02 [facility] Comment on above: The validity of the calculated GFR & GFRAA in patients over 70 years has not been determined. Clinical correlation is essential. Serum or plasma urea nitroge n measurement (mass/volume)Ordered By: Dr. Luis on 08-26-2022 Urea nitrogen [Mass/Vol] 7 mg/dL 7-18 [facility] Thin prep Papanicolaou smear with manual screeningOrdered By: Dr. Luis on 08-26-2022 Thin prep Papanicolaou smear with manual screening 6 5-15 [facility] Absolute lymphocyte countOrd ered By: Dr. Luis on 08-17-2022 Lymphocytes Auto (Unsp spec) [#/Vol] 1.31 10*3/uL 0.83-4.51 [facility] Basophil percentageOrdered B y: Dr. Luis on 08-17-2022 Basophil percentage 128 mg/dL 74-106 [facility] Basophil percentage 138 mmol/L 136-145 [facility] Basophil percentage 3.9 mmol/L 3.5-5.1 [facility] Basophil percentage 106 mmol/L 98-107 [facility] Basophils (Bld) [#/Vol] 5.2 10*3/uL 4.4-11.0 [facility] Basophils (Bld) [#/Vol] 3.2 10*3/uL 2.0-7.7 [facility] Basophils/100 WBC (Bld) 62.1 % 47-70 [facility] Basophils/100 WBC (Bld) 4.0 % 0-5 [facility] Basophils/100 WBC (Bld) 0.4 % 0-1 [facility] Basophil percentageOrdered B y: Dimple Luis on 08-17-2022 Chloride [Moles/Vol] 106 mmol/L 98-107 [facility] Eosinophils/100 WBC (Bld) 4.0 % 0-5 [facility] Glucose [Mass/Vol] 128 mg/dL 74-106 [facility] Comment on above: Fasting Glucose resu lt greater than or equal to 126 mg/dL suggests DIABETES MELLITUS per A.D.A. criteria. Neutrophils (Bld) [#/Vol] 3.2 10*3/uL 2.0-7.7 [facility] Neutrophils/100 WBC (Bld) 62.1 % 47-70 [facility] Potassium [Moles/Vol] 3.9 mmol/L 3.5-5.1 [facility] Sodium [Moles/Vol] 138 mmol/L 136-145 [facility] WBC (Bld) [#/Vol] 5.2 10*3/uL 4.4-11.0 [facility] Beta hCG serum qualOrdered B y: Dr. Luis on 08-17-2022 Beta HCG ( test) Ql Negative [facility] Blood erythrocytes count (nu mber/volume)Ordered By: Dr. Luis on 08-17-2022 RBC (Bld) [#/Vol] 5.00 10*6/uL 4.2-5.4 [facility] Blood hemoglobin measurement (mass/volume)Ordered By: Dr. Luis on 08-17-2022 Hemoglobin (Bld) [Mass/Vol] 13.8 g/dL 12.0-15.0 [facility] Blood lymphocytes/100 leukoc ytesOrdered By: Dr. Luis on 08-17-2022 Lymphocytes/100 WBC (Bld) 25.2 % 19-41 [facility] Blood monocytes/100 leukocyt esOrdered By: Dr. Luis on 08-17-2022 Monocytes/100 WBC (Bld) 7.9 % 0-10 [facility] Blood platelet mean volumeOr dered By: Dr. Luis on 08-17-2022 Platelet mean volume (Bld) [Entitic vol] 10.8 fL 6.2-12.0 [facility] Determination of erythrocyte mean corpuscular volume (MCV)Ordered By: Dr. Luis on 08-17-2022 MCV (RBC) [Entitic vol] 85.4 fL 81-99 [facility] Hematocrit Auto (Bld) [Volum e fraction]Ordered By: Dr. Luis on 08-17-2022 Hematocrit (Bld) [Volume fraction] 42.7 % 37-47 [facility] Laboratory - Chemistry and C hemistry - challengeOrdered By: Dimple Luis on 08-17-2022 CO2 [Moles/Vol] 27.0 mmol/L 21.0-32.0 [facility] Urea nitrogen/Creatinine [Mass ratio] 13.4 mg/mg 10-20 [facility] Laboratory - Hematology and Cell countsOrdered By: Dimple Luis on 08-17-2022 Erythrocyte distribution width (RBC) [Entitic vol] 39.5 fL 35.1-43.9 [facility] Erythrocyte distribution width (RBC) [Ratio] 12.8 % 11.6-14.6 [facility] Immature granulocytes/100 WBC (Bld) 0.400 % 0.0-0.9 [facility] Comment on above: IG% - Immature Granu locytes (promyelocytes, myelocytes and metamyelocytes) > 1% indicates that a LEFT SHIFT is Present. MCH (RBC) [Entitic mass] 27.6 pg 27.0-32.0 [facility] Nucleated RBC/100 WBC (Bld) [Ratio] 0 % 0-5 [facility] Auto (RBC) [Mass/Vol]Or dered By: Dr. Luis on 08-17-2022 MCHC (RBC) [Mass/Vol] 32.3 g/dL 32-36 [facility] No Panel InformationOrdered By: Dimple Luis on 08-17-2022 Estimated Creatinine Clearance Calc 109.71 ml/min [facility] Estimated GFR (MDRD) Amer 128 mL/min >60 [facility] Comment on above: GFR Calc Estimated GFR (MDRD) Non-Af Amer 106 mL/min >60 [facility] Comment on above: Non- GFR Calc Troponin I High Sensitivity 3 pg/mL 3.0-54.0 [facility] Comment on above: Please Note: New Chantal t Units and Gender Specific Reference Ranges. For more information see Policy Stat Procedure [place] High Sensitivity Troponin (TNIH) and attachments. No Panel InformationOrdered By: Dr. Luis on 08-17-2022 27.6 pg 27.0-32.0 [facility] 12.8 % 11.6-14.6 [facility] 39.5 fl 35.1-43.9 [facility] 0.400 % 0.0-0.9 [facility] 0 % 0-5 [facility] 106 mL/min >60 [facility] 128 mL/min >60 [facility] 109.71 ml/min [facility] 13.4 RATIO 10-20 [facility] 3 pg/mL 3.0-54.0 [facility] 27.0 mmol/L 21.0-32.0 [facility] Platelets bldOrdered By: Dr. Luis on 08-17-2022 Platelets (Bld) [#/Vol] 175 10*3/uL 150-450 [facility] Serum or plasma calcium mg urement (mass/volume)Ordered By: Dr. Luis on 08-17-2022 Calcium [Mass/Vol] 8.7 mg/dL 8.5-10.1 [facility] Serum or plasma creatinine m easurement (mass/volume)Ordered By: Dr. Luis on 08-17-2022 Creatinine [Mass/Vol] 0.67 mg/dL 0.55-1.02 [facility] Comment on above: The validity of the calculated GFR & GFRAA in patients over 70 years has not been determined. Clinical correlation is essential. Serum or plasma urea nitroge n measurement (mass/volume)Ordered By: Dr. Luis on 08-17-2022 Urea nitrogen [Mass/Vol] 9 mg/dL 7-18 [facility] Thin prep Papanicolaou smear with manual screeningOrdered By: Dr. Luis on 08-17-2022 Thin prep Papanicolaou smear with manual screening 5 5-15 [facility] Absolute lymphocyte countOrd ered By: Royce Bangura on 07-17-2022 Lymphocytes Auto (Unsp spec) [#/Vol] 1.50 10*3/uL 0.83-4.51 [facility] Basophil percentageOrdered B y: Royce Bangura on 07-17-2022 Basophil percentage 123 mg/dL 74-106 [facility] Basophil percentage 6.8 g/dL 6.4-8.2 [facility] Basophil percentage 0.40 mg/dL 0.20-1.00 [facility] Basophil percentage 140 mmol/L 136-145 [facility] Basophil percentage 3.4 mmol/L 3.5-5.1 [facility] Basophil percentage 104 mmol/L 98-107 [facility] Basophils (Bld) [#/Vol] 4.1 10*3/uL 4.4-11.0 [facility] Basophils (Bld) [#/Vol] 2.1 10*3/uL 2.0-7.7 [facility] Basophils/100 WBC (Bld) 50.5 % 47-70 [facility] Basophils/100 WBC (Bld) 3.2 % 0-5 [facility] Basophils/100 WBC (Bld) 0.7 % 0-1 [facility] Blood erythrocytes count (nu mber/volume)Ordered By: Royce Bangura on 07-17-2022 RBC (Bld) [#/Vol] 4.75 10*6/uL 4.2-5.4 [facility] Blood hemoglobin measurement (mass/volume)Ordered By: Royce Bangura on 07-17-2022 Hemoglobin (Bld) [Mass/Vol] 13.1 g/dL 12.0-15.0 [facility] Blood lymphocytes/100 leukoc ytesOrdered By: Royce Bangura on 07-17-2022 Lymphocytes/100 WBC (Bld) 36.8 % 19-41 [facility] Blood monocytes/100 leukocyt esOrdered By: Royce Bangura on 07-17-2022 Monocytes/100 WBC (Bld) 8.6 % 0-10 [facility] Blood platelet mean volumeOr dered By: Royce Bangura on 07-17-2022 Platelet mean volume (Bld) [Entitic vol] 11.2 fL 6.2-12.0 [facility] Determination of erythrocyte mean corpuscular volume (MCV)Ordered By: Royce Bangura on 07-17-2022 MCV (RBC) [Entitic vol] 86.3 fL 81-99 [facility] Hematocrit Auto (Bld) [Volum e fraction]Ordered By: Royce Bangura on 07-17-2022 Hematocrit (Bld) [Volume fraction] 41.0 % 37-47 [facility] MCHC Auto (RBC) [Mass/Vol]Or dered By: Royce Bangura on 07-17-2022 MCHC (RBC) [Mass/Vol] 32.0 g/dL 32-36 [facility] No Panel InformationOrdered By: Royce Bangura on 07-17-2022 27.6 pg 27.0-32.0 [facility] 13.9 % 11.6-14.6 [facility] 43.2 fl 35.1-43.9 [facility] 0.200 % 0.0-0.9 [facility] 0 % 0-5 [facility] 94 mL/min >60 [facility] 113 mL/min >60 [facility] 98.01 ml/min [facility] 9.3 RATIO 10-20 [facility] 3.2 g/dL 2.2-4.2 [facility] 120 U/L 73-393 [facility] < 3 pg/mL 3.0-54.0 [facility] 60 U/L 45-117 [facility] 24 U/L 13-56 [facility] 29.0 mmol/L 21.0-32.0 [facility] 1.37 uIU/mL 0.358-3.74 [facility] Platelets bldOrdered By: Lita Bangura on 07-17-2022 Platelets (Bld) [#/Vol] 160 10*3/uL 150-450 [facility] Serum or plasma albumin mg urement (mass/volume)Ordered By: Royce Bangura on 07-17-2022 Albumin [Mass/Vol] 3.6 g/dL 3.2-5.0 [facility] Serum or plasma albumin/glob ulin mass ratioOrdered By: Royce Bangura on 07-17-2022 Albumin/Globulin [Mass ratio] 1.1 {ratio} 0.9-2.4 [facility] Serum or plasma calcium mg urement (mass/volume)Ordered By: Royce Bangura on 07-17-2022 Calcium [Mass/Vol] 9.1 mg/dL 8.5-10.1 [facility] Serum or plasma creatinine m easurement (mass/volume)Ordered By: Royce Bangura on 07-17-2022 Creatinine [Mass/Vol] 0.75 mg/dL 0.55-1.02 [facility] Serum or plasma urea nitroge n measurement (mass/volume)Ordered By: Royce Bangura on 07-17-2022 Urea nitrogen [Mass/Vol] 7 mg/dL 7-18 [facility] Thin prep Papanicolaou smear with manual screeningOrdered By: Royce Bangura on 07-17-2022 Thin prep Papanicolaou smear with manual screening 10 U/L 15-37 [facility] Thin prep Papanicolaou smear with manual screening 7 5-15 [facility] Absolute lymphocyte countOrd ered By: Rea Poon on 07-14-2022 Lymphocytes Auto (Unsp spec) [#/Vol] 1.51 10*3/uL 0.83-4.51 [facility] Atypical perinuclear antineu trophil cytoplasmic antibodies measurementOrdered By: Rea Poon on 07-14-2022 Neutrophil cytoplasmic Ab.perinuclear.atypical IF (S) [Titer] <1:20 titer Neg:<1:20 [facility] Basophil percentageOrdered B y: Rea Poon on 07-14-2022 Basophil percentage 118 mg/dL 74-106 [facility] Basophil percentage 7.2 g/dL 6.4-8.2 [facility] Basophil percentage 0.40 mg/dL 0.20-1.00 [facility] Basophil percentage 138 mmol/L 136-145 [facility] Basophil percentage 3.4 mmol/L 3.5-5.1 [facility] Basophil percentage 103 mmol/L 98-107 [facility] Basophil percentage < 0.2 AI 0.0-0.9 [facility] Basophils (Bld) [#/Vol] 6.2 10*3/uL 4.4-11.0 [facility] Basophils (Bld) [#/Vol] 3.9 10*3/uL 2.0-7.7 [facility] Basophils/100 WBC (Bld) 63.9 % 47-70 [facility] Basophils/100 WBC (Bld) 2.9 % 0-5 [facility] Basophils/100 WBC (Bld) 0.5 % 0-1 [facility] Blood erythrocytes count (nu mber/volume)Ordered By: Rea Poon on 07-14-2022 RBC (Bld) [#/Vol] 4.95 10*6/uL 4.2-5.4 [facility] Blood hemoglobin measurement (mass/volume)Ordered By: Rea Poon on 07-14-2022 Hemoglobin (Bld) [Mass/Vol] 13.7 g/dL 12.0-15.0 [facility] Blood lymphocytes/100 leukoc ytesOrdered By: Rea Poon on 07-14-2022 Lymphocytes/100 WBC (Bld) 24.5 % 19-41 [facility] Blood monocytes/100 leukocyt esOrdered By: Rea Poon on 07-14-2022 Monocytes/100 WBC (Bld) 7.9 % 0-10 [facility] Blood platelet mean volumeOr dered By: Rea Poon on 07-14-2022 Platelet mean volume (Bld) [Entitic vol] 11.2 fL 6.2-12.0 [facility] Determination of erythrocyte mean corpuscular volume (MCV)Ordered By: Rea Poon on 07-14-2022 MCV (RBC) [Entitic vol] 86.5 fL 81-99 [facility] Erythrocyte sedimentation ra teOrdered By: Rea Poon on 07-14-2022 ESR (Bld) [Velocity] 2 mm/h 0-30 [facility] Hematocrit Auto (Bld) [Volum e fraction]Ordered By: Rea Poon on 07-14-2022 Hematocrit (Bld) [Volume fraction] 42.8 % 37-47 [facility] MCHC Auto (RBC) [Mass/Vol]Or dered By: Rea Poon on 07-14-2022 MCHC (RBC) [Mass/Vol] 32.0 g/dL 32-36 [facility] No Panel InformationOrdered By: Rea Poon on 07-14-2022 <2 U/mL 0-5 [facility] 27.7 pg 27.0-32.0 [facility] 14.3 % 11.6-14.6 [facility] 44.9 fl 35.1-43.9 [facility] 0.300 % 0.0-0.9 [facility] 0 % 0-5 [facility] 83 mL/min >60 [facility] 100 mL/min >60 [facility] 7.2 RATIO 10-20 [facility] 3.5 g/dL 2.2-4.2 [facility] 60 U/L 45-117 [facility] 25 U/L 13-56 [facility] 30.0 mmol/L 21.0-32.0 [facility] 0.3 AI 0.0-0.9 [facility] <0.2 AI 0.0-0.9 [facility] Negative Negative [facility] Platelets bldOrdered By: Eleanor Poon on 07-14-2022 Platelets (Bld) [#/Vol] 180 10*3/uL 150-450 [facility] Serum DNA double strand anti body assay (units/volume)Ordered By: Rea Poon on 07-14-2022 DNA double strand Ab Qn (S) [IU]/mL 0-9 [facility] Serum IgA measurement (units /volume)Ordered By: Rea Poon on 07-14-2022 IgA Qn (S) 19 mg/dL 87-352 [facility] Serum Alise-1 antibody assay (u nits/volume)Ordered By: Rea Poon on 07-14-2022 Alise-1 extractable nuclear Ab Qn (S) <0.2 AI 0.0-0.9 [facility] Serum Scl-70 extractable nuc lear antibody assay (units/volume)Ordered By: Rea Poon on 07-14-2022 SCL-70 extractable nuclear Ab Qn (S) <0.2 AI 0.0-0.9 [facility] Serum Freedman extractable nucl ear antibody detectionOrdered By: Rea Poon on 07-14-2022 Freedman extractable nuclear Ab Ql (S) <0.2 AI 0.0-0.9 [facility] Serum classic neutrophil cyt oplasmic antibody assay (units/volume)Ordered By: Rea Poon on 07-14-2022 Neutrophil cytoplasmic Ab.classic Qn (S) <1:20 titer Neg:<1:20 [facility] Serum or plasma C reactive p rotein measurement (mass/volume)Ordered By: Rea Poon on 07-14-2022 CRP [Mass/Vol] mg/L 0.0-3.0 [facility] Serum or plasma albumin mg urement (mass/volume)Ordered By: Rea Poon on 07-14-2022 Albumin [Mass/Vol] 3.7 g/dL 3.2-5.0 [facility] Serum or plasma albumin/glob ulin mass ratioOrdered By: Rea Poon on 07-14-2022 Albumin/Globulin [Mass ratio] 1.1 {ratio} 0.9-2.4 [facility] Serum or plasma calcium mg urement (mass/volume)Ordered By: Rea Poon on 07-14-2022 Calcium [Mass/Vol] 9.2 mg/dL 8.5-10.1 [facility] Serum or plasma creatinine m easurement (mass/volume)Ordered By: Rea Poon on 07-14-2022 Creatinine [Mass/Vol] 0.83 mg/dL 0.55-1.02 [facility] Serum or plasma urea nitroge n measurement (mass/volume)Ordered By: Rea Poon on 07-14-2022 Urea nitrogen [Mass/Vol] 6 mg/dL 7-18 [facility] Serum perinuclear neutrophil cytoplasmic antibody titer by immunofluorescenceOrdered By: Rea Poon on 07-14-2022 Neutrophil cytoplasmic Ab.perinuclear IF (S) [Titer] <1:20 titer Neg:<1:20 [facility] Serum tissue transglutaminas e IgA antibody assay (units/volume)Ordered By: Rea Poon on 07-14-2022 tTG IgA Qn (S) <2 U/mL 0-3 [facility] Thin prep Papanicolaou smear with manual screeningOrdered By: Rea Poon on 07-14-2022 Thin prep Papanicolaou smear with manual screening 15 U/L 15-37 [facility] Thin prep Papanicolaou smear with manual screening 5 5-15 [facility] BASIC METABOLIC PANELon 06-22 Anion gap [Moles/Vol] 11 mmol/L Normal 10 - 20 [facility] Comment on above: Performed By: #### B MP #### [address] [address] Calcium [Mass/Vol] 9.1 mg/dL Normal 8.6 - 10.3 [facility] Comment on above: Performed By: #### B MP #### [address] [address] Chloride [Moles/Vol] 103 mmol/L Normal 98 - 107 [facility] Comment on above: Performed By: #### B MP #### [address] [address] Creatinine [Mass/Vol] 0.72 mg/dL Normal 0.50 - 1.05 [facility] Comment on above: Performed By: #### B MP #### [address] [address] eGFR FEMALE >90 Normal >90 [facility] Comment on above: Result Comment: CALC ULATIONS OF ESTIMATED GFR ARE PERFORMED USING THE 2020 CKD-EPI STUDY REFIT EQUATION WITHOUT THE RACE VARIABLE FOR THE IDMS-TRACEABLE CREATININE METHODS. https://jasn.asnjournals.org/content/early//ASN 288982 Performed By: #### B MP #### [address] [address] Glucose [Mass/Vol] 137 mg/dL High 74 - 99 [facility] Comment on above: Performed By: #### B MP #### [address] [address] HCO3 (Bld) [Moles/Vol] 26 mmol/L Normal 21 - 32 [facility] Comment on above: Performed By: #### B MP #### [address] [address] Potassium [Moles/Vol] 3.9 mmol/L Normal 3.5 - 5.3 [facility] Comment on above: Performed By: #### B MP #### [place] [address] Sodium [Moles/Vol] 136 mmol/L Normal 136 - 145 [facility] Comment on above: Performed By: #### B MP #### [address] [address] Urea nitrogen [Mass/Vol] 13 mg/dL Normal 6 - 23 [facility] Comment on above: Performed By: #### B MP #### [address] [address] CBC AND DIFFERENTIALon 07-05 % AUTOMATED IMMATURE GRAN 0.5 % Normal 0.0 - 0.9 [facility] Comment on above: Result Comment: Lyssa ture Granulocyte Count (IG) includes promyelocytes, myelocytes and metamyelocytes but does not include bands. Percent differential counts (%) should be interpreted in the context of the absolute cell counts (cells/L). Performed By: #### C BCDF #### [address] [address] Basophils (Bld) [#/Vol] 0.02 10*3/uL Normal 0.00 - 0.1 0 [facility] Comment on above: Performed By: #### C BCDF #### [address] [address] Basophils/100 WBC (Bld) 0.3 % Normal 0.0 - 2.0 [facility] Comment on above: Performed By: #### C BCDF #### [address] [address] Eosinophils (Bld) [#/Vol] 0.01 10*3/uL Normal 0.00 - 0.70 [facility] Comment on above: Performed By: #### C BCDF #### [address] [address] Eosinophils/100 WBC (Bld) 0.2 % Normal 0.0 - 6.0 [facility] Comment on above: Performed By: #### C BCDF #### [address] [address] Erythrocyte distribution width (RBC) [Ratio] 14.4 % Normal 11.5 - 14.5 [facility] Comment on above: Performed By: #### C BCDF #### [address] [address] Hematocrit (Bld) [Volume fraction] 41.8 % Normal 36.0 - 46.0 [facility] Comment on above: Performed By: #### C BCDF #### [address] [address] Hemoglobin (Bld) [Mass/Vol] 13.6 g/dL Normal 12.0 - 16.0 [facility] Comment on above: Performed By: #### C BCDF #### [address] [address] Lymphocytes (Bld) [#/Vol] 0.91 10*3/uL Low 1.20 - 4.80 [facility] Comment on above: Performed By: #### C BCDF #### [address] [address] Lymphocytes/100 WBC (Bld) 14.2 % Normal 13.0 - 44.0 [facility] Comment on above: Performed By: #### C BCDF #### [address] [address] MCHC (RBC) [Mass/Vol] 32.5 g/dL Normal 32.0 - 36.0 [facility] Comment on above: Performed By: #### C BCDF #### [address] [address] MCV (RBC) [Entitic vol] 84 fL Normal 80 - 100 [facility] Comment on above: Performed By: #### C BCDF #### [address] [address] Monocytes (Bld) [#/Vol] 0.28 10*3/uL Normal 0.10 - 1.0 0 [facility] Comment on above: Performed By: #### C BCDF #### [address] [address] Monocytes/100 WBC (Bld) 4.4 % Normal 2.0 - 10.0 [facility] Comment on above: Performed By: #### C BCDF #### [address] [address] Neutrophils (Bld) [#/Vol] 5.17 10*3/uL Normal 1.20 - 7.70 [facility] Comment on above: Result Comment: Perc ent differential counts (%) should be interpreted in the context of the absolute cell counts (cells/L). Performed By: #### C BCDF #### [address] [address] Neutrophils/100 WBC (Bld) 80.4 % Normal 40.0 - 80.0 [facility] Comment on above: Performed By: #### C BCDF #### [address] [address] Platelets (Bld) [#/Vol] 212 10*3/uL Normal 150 - 450 [facility] Comment on above: Performed By: #### C BCDF #### [address] [address] RBC 5.00 x10E12/L Normal 4.00 - 5.20 [facility] Comment on above: Performed By: #### C BCDF #### [address] [address] WBC (Bld) [#/Vol] 6.4 10*3/uL Normal 4.4 - 11.3 [facility] Comment on above: Performed By: #### C BCDF #### [address] [address] HEPATIC FUNCTION PANELon Albumin [Mass/Vol] 4.5 g/dL Normal 3.4 - 5.0 [facility] Comment on above: Performed By: #### H EPFP #### [address] [address] ALP [Catalytic activity/Vol] 61 U/L Normal 33 - 110 [facility] Comment on above: Performed By: #### H EPFP #### [address] [address] ALT [Catalytic activity/Vol] 13 U/L Normal 7 - 45 [facility] Comment on above: Result Comment: Kamilla ents treated with Sulfasalazine may generate falsely decreased results for ALT. Performed By: #### H EPFP #### [address] [address] AST [Catalytic activity/Vol] 11 U/L Normal 9 - 39 [facility] Comment on above: Performed By: #### H EPFP #### [address] [address] Bilirubin [Mass/Vol] 0.3 mg/dL Normal 0.0 - 1.2 [facility] Comment on above: Performed By: #### H EPFP #### [address] [address] Bilirubin.indirect [Mass/Vol] 0.1 mg/dL Normal 0.0 - 0.3 [facility] Comment on above: Performed By: #### H EPFP #### [address] [address] Protein [Mass/Vol] 7.2 g/dL Normal 6.4 - 8.2 [facility] Comment on above: Performed By: #### H EPFP #### [address] [place] [address] LACTATEon 07-05-2022 Lactate [Moles/Vol] 1.2 mmol/L Normal 0.4 - 2.0 [facility] Comment on above: Result Comment: Sandra puncture immediately after or during the administration of Metamizole may lead to falsely low results. Testing should be performed immediately prior to Metamizole dosing. Performed By: #### L ACT #### [address] [address] LIPASEon 07-05-2022 Lipase [Catalytic activity/Vol] 15 U/L Normal 9 - 82 [facility] Comment on above: Result Comment: Sandra puncture immediately after or during the administration of Metamizole may lead to falsely low results. Testing should be performed immediately prior to Metamizole dosing. A-edrnmq-f-benzoquinone imine (metabolite of Acetaminophen) will generate erroneously low results in samples for patients that have taken toxic doses of acetaminophen. Performed By: #### L IPAS #### [address] [address] Provider Note - ED v3on 06-22 Provider [...] following those procedures. They were done at [place]. Patient gets most of her medical care at [facility]. 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 Sensation and motor function of extremities grossly intact. Psych: Appropriate mood and affect. I have reviewed and confirmed nurses/medics notes for patient past, social and family history. Portions of this note were dictated by speech recognition. An attempt at proof reading was made to minimize errors. 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 Triage [...] Reference Range: STRAW,YELLOW Appearance, Urine CLEAR Specific [place], Urine 1.012 pH, Urine 6.0 Protein, Urine [...] SIGNS: T PRBP SpO2O2(LPM) %FiO2 Method 04-Jul-2022 23:00:[id number] 95 room air, no respiratory support 04-Jul-2022 22:35:[id number] 96 room air, no respiratory support 04-Jul-2022 22:09:[id number] 98 room air, no respiratory support 04-Jul-2022 22:05:[id number] 98 room air, no respiratory support MDM MDM/ED COURSE: Patient is nontoxic appearing. I did review on the [facility] network. She had a CT abdomen pelvis on June 10. She had an ultrasound of the pelvis also at [place] on June 22 and another ultrasound at [facility] the next day on the second. I also reviewed the OARRS report which is somewhat extensive. Reassessment patient resting comfortab (more content not included)... Normal [facility] Risk Screen - Adult Emergenc yon [...] material; verbal instruction Cultural Considerationsnone Developmental Considerationsnone Rastafarian Considerationsnone Learning Assessment (Other Learner): Learning Assessment (Other Learner): Other learner availableyes... Learnerspouse Factors Influencing Readiness to Learnacuteness of illness Factors that Impact Ability to Learnnone Devices/Methods Used to Communicatenone Learning Preferencesverbal instruction, written material Cultural Considerationsnone Developmental Considerationsnone Rastafarian Considerationsnone Pressure Injury/TB/Substance: Pressure Injury: Do you [...] an injured patient at a Trauma Center ([facility]/[place]/[place]): no Electronic Signatures: Cristiana Golden (SHELBY) (Signed 04-Jul-2022 22:13) Authored: Preferred Language, Patient Preferred Pharmacy, Advanced Directives, Family Violence Adult, Learning Assessment (Patient), Learning Assessment (Other Learner), Pressure Injury/TB/Substance, Pressure Injury, CAGE Last Updated: 04-Jul-2022 22:13 by Cristiana Golden) [facility] Triage - EDon 07-05-2022 Triage - ED Quick Triage: Are You no Have You Given In The Last 6 Weeksno Are You Currently Breastfeedingno Chart Review: ARRIVAL INFORMATION Mode of Arrival: private vehicle CHIEF COMPLAINT LANA RIVERA is a Female patient with a chief complaint of abdominal pain (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 History: hysterectomy Patient has homicidal thoughts: no [...] 04-Jul-2022 22:12 by Cristiana Golden (RN) Normal [facility] URINALYSIS WITH CULTURE IF I NDICATEDon 07-05-2022 Appearance (U) CLEAR Normal CLEAR [facility] Comment on above: Performed By: #### U ARFX #### [place] [address] Bilirubin Ql (U) Negative Normal NEGATIVE [facility] Comment on above: Performed By: #### U ARFX #### [place] [address] Color (U) Straw Normal STRAW,YELLOW [facility] Comment on above: Performed By: #### U ARFX #### [place] [address] Glucose Ql (U) Negative Normal NEGATIVE [facility] Comment on above: Performed By: #### U ARFX #### [place] [address] Hemoglobin Ql (U) Negative Normal NEGATIVE [facility] Comment on above: Performed By: #### U ARFX #### [place] [address] Ketones Ql (U) Negative Normal NEGATIVE [facility] Comment on above: Performed By: #### U ARFX #### [place] [id number] Leukocyte esterase Test strip Ql (U) Negative Normal NEGATIVE [facility] Comment on above: Performed By: #### U ARFX #### [address] [address] Nitrite Ql (U) Negative Normal NEGATIVE [facility] Comment on above: Performed By: #### U ARFX #### [place] [id number] pH (U) 6.0 [pH] Normal 5.0 - 8.0 [facility] Comment on above: Performed By: #### U ARFX #### [place] [address] Protein Ql (U) Negative Normal NEGATIVE [facility] Comment on above: Performed By: #### U ARFX #### [address] [address] Specific gravity (U) [Rel density] 1.012 Normal 1.005 - 1.035 [facility] Comment on above: Performed By: #### U ARFX #### [address] [address] Urobilinogen (U) [Mass/Vol] mg/dL Normal 0.0 - 1.9 [facility] Comment on above: Performed By: #### U ARFX #### [address] [address] No Panel Informationon 06-[address] [facility] Negative [facility] US PELVIC TRANSABDOMINAL AND TRANSVAGINAL WITH [...] MonJun 23, 2022 10:43:29 PM EST Normal [facility] Comment on above: Order Comment: Injur y/Trauma or Illness?:Illness/Other How long have you had these symptoms (acute/chronic)?:Acute Reason for exam?:r/o ovarian torsion History of cancer?:unknown Surgeries, chemotherapy, or radiation?:unknown Type of Exam?:Initial Additional signs and symptoms?:none Absolute lymphocyte countOrd ered By: Dr. Jacobs on 06-10-2022 Lymphocytes Auto (Unsp spec) [#/Vol] 0.96 10*3/uL 0.83-4.51 [facility] Basophil percentageOrdered B y: Dr. Jacobs on 06-10-2022 Basophil percentage 108 mg/dL 74-106 [facility] Basophil percentage 139 mmol/L 136-145 [facility] Basophil percentage 3.9 mmol/L 3.5-5.1 [facility] Basophil percentage 106 mmol/L 98-107 [facility] Basophils (Bld) [#/Vol] 3.6 10*3/uL 4.4-11.0 [facility] Basophils (Bld) [#/Vol] 2.1 10*3/uL 2.0-7.7 [facility] Basophils/100 WBC (Bld) 56.4 % 47-70 [facility] Basophils/100 WBC (Bld) 8.0 % 0-5 [facility] Basophils/100 WBC (Bld) 0.6 % 0-1 [facility] Blood erythrocytes count (nu mber/volume)Ordered By: Dr. Jacobs on 06-10-2022 RBC (Bld) [#/Vol] 4.73 10*6/uL 4.2-5.4 [facility] Blood hemoglobin measurement (mass/volume)Ordered By: Dr. Jacobs on 06-10-2022 Hemoglobin (Bld) [Mass/Vol] 12.9 g/dL 12.0-15.0 [facility] Blood lymphocytes/100 leukoc ytesOrdered By: Dr. Jacobs on 06-10-2022 Lymphocytes/100 WBC (Bld) 26.4 % 19-41 [facility] Blood monocytes/100 leukocyt esOrdered By: Dr. Jacobs on 06-10-2022 Monocytes/100 WBC (Bld) 8.3 % 0-10 [facility] Blood platelet mean volumeOr dered By: Dr. Jacobs on 06-10-2022 Platelet mean volume (Bld) [Entitic vol] 10.8 fL 6.2-12.0 [facility] Determination of erythrocyte mean corpuscular volume (MCV)Ordered By: Dr. Jacobs on 06-10-2022 MCV (RBC) [Entitic vol] 85.4 fL 81-99 [facility] Hematocrit Auto (Bld) [Volum e fraction]Ordered By: Dr. Jacobs on 06-10-2022 Hematocrit (Bld) [Volume fraction] 40.4 % 37-47 [facility] MCHC Auto (RBC) [Mass/Vol]Or dered By: Dr. Jacobs on 06-10-2022 MCHC (RBC) [Mass/Vol] 31.9 g/dL 32-36 [facility] No Panel InformationOrdered By: Dr. Jacobs on 06-10-2022 27.3 pg 27.0-32.0 [facility] 14.9 % 11.6-14.6 [facility] 46.7 fl 35.1-43.9 [facility] 0.300 % 0.0-0.9 [facility] 0 % 0-5 [facility] 107 mL/min >60 [facility] 129 mL/min >60 [facility] 109.71 ml/min [facility] 9.0 RATIO 10-20 [facility] 26.0 mmol/L 21.0-32.0 [facility] Platelets bldOrdered By: Dr. Jacobs on 06-10-2022 Platelets (Bld) [#/Vol] 166 10*3/uL 150-450 [facility] Serum or plasma calcium mg urement (mass/volume)Ordered By: Dr. Jacobs on 06-10-2022 Calcium [Mass/Vol] 8.3 mg/dL 8.5-10.1 [facility] Serum or plasma creatinine m easurement (mass/volume)Ordered By: Dr. Jacobs on 06-10-2022 Creatinine [Mass/Vol] 0.67 mg/dL 0.55-1.02 [facility] Serum or plasma urea nitroge n measurement (mass/volume)Ordered By: Dr. Jacobs on 06-10-2022 Urea nitrogen [Mass/Vol] 6 mg/dL 7-18 [facility] Thin prep Papanicolaou smear with manual screeningOrdered By: Dr. Jacobs on 06-10-2022 Thin prep Papanicolaou smear with manual screening 7 5-15 [facility] No Panel InformationOrdered By: Grace Cho on 05-30-2022 2.1 mg/dL 1.6-2.6 [facility] 1.56 uIU/mL 0.358-3.74 [facility] 17.6 ng/mL [facility] Absolute lymphocyte countOrd ered By: ED PROVIDER on 05-23-2022 Lymphocytes Auto (Unsp spec) [#/Vol] 1.87 10*3/uL 0.83-4.51 [facility] Basophil percentageOrdered B y: Dr. Barajas on 05-23-2022 Basophil percentage 0 SEEN /hpf 0-5 [facility] Basophil percentage 108 mg/dL 74-106 [facility] Basophil percentage 139 mmol/L 136-145 [facility] Basophil percentage 3.7 mmol/L 3.5-5.1 [facility] Basophil percentage 107 mmol/L 98-107 [facility] Basophil percentageOrdered B y: ED PROVIDER on 05-23-2022 Basophils (Bld) [#/Vol] 4.9 10*3/uL 4.4-11.0 [facility] Basophils (Bld) [#/Vol] 2.3 10*3/uL 2.0-7.7 [facility] Basophils/100 WBC (Bld) 0.6 % 0-1 [facility] Basophils/100 WBC (Bld) 46.4 % 47-70 [facility] Basophils/100 WBC (Bld) 4.5 % 0-5 [facility] Basophil percentageon 2022 Chloride [Moles/Vol] 107 mmol/L 98-107 [facility] Work Phone: Eosinophils/100 WBC (Bld) 4.5 % 0-5 [facility] Work Phone: Glucose [Mass/Vol] 108 mg/dL 74-106 [facility] Work Phone: Comment on above: Fasting Glucose resu lt from 100 to 125 mg/dL suggests IMPAIRED HOMEOSTASIS per A.D.A. criteria. Neutrophils (Bld) [#/Vol] 2.3 10*3/uL 2.0-7.7 [facility] Work Phone: Neutrophils/100 WBC (Bld) 46.4 % 47-70 [facility] Work Phone: Potassium [Moles/Vol] 3.7 mmol/L 3.5-5.1 [facility] Work Phone: Sodium [Moles/Vol] 139 mmol/L 136-145 [facility] Work Phone: WBC (Bld) [#/Vol] 4.9 10*3/uL 4.4-11.0 [facility] Work Phone: Bilirubin Test strip Ql (U)O rdered By: Dr. Barajas on 05-23-2022 Bilirubin Ql (U) Negative Negative [facility] Blood erythrocytes count (nu mber/volume)Ordered By: ED PROVIDER on 05-23-2022 RBC (Bld) [#/Vol] 4.62 10*6/uL 4.2-5.4 [facility] Blood hemoglobin measurement (mass/volume)Ordered By: ED PROVIDER on 05-23-2022 Hemoglobin (Bld) [Mass/Vol] 12.9 g/dL 12.0-15.0 [facility] Blood lymphocytes/100 leukoc ytesOrdered By: ED PROVIDER on 05-23-2022 Lymphocytes/100 WBC (Bld) 38.4 % 19-41 [facility] Blood monocytes/100 leukocyt esOrdered By: ED PROVIDER on 05-23-2022 Monocytes/100 WBC (Bld) 9.9 % 0-10 [facility] Blood platelet mean volumeOr dered By: ED PROVIDER on 05-23-2022 Platelet mean volume (Bld) [Entitic vol] 10.8 fL 6.2-12.0 [facility] Determination of erythrocyte mean corpuscular volume (MCV)Ordered By: ED PROVIDER on 05-23-2022 MCV (RBC) [Entitic vol] 85.7 fL 81-99 [facility] Hematocrit Auto (Bld) [Volum e fraction]Ordered By: ED PROVIDER on 05-23-2022 Hematocrit (Bld) [Volume fraction] 39.6 % 37-47 [facility] Ketones Test strip Ql (U)Ord ered By: Dr. Barajas on 05-23-2022 Ketones Ql (U) Negative Negative [facility] Laboratory - Chemistry and C hemistry - challengeon 05-23-2022 CO2 [Moles/Vol] 28.0 mmol/L 21.0-32.0 [facility] Work Phone: Urea nitrogen/Creatinine [Mass ratio] 14.6 mg/mg 10-20 [facility] Work Phone: Laboratory - Hematology and Cell countson 05-23-2022 Erythrocyte distribution width (RBC) [Entitic vol] 49.7 fL 35.1-43.9 [facility] Work Phone: Erythrocyte distribution width (RBC) [Ratio] 15.9 % 11.6-14.6 [facility] Work Phone: Immature granulocytes/100 WBC (Bld) 0.200 % 0.0-0.9 [facility] Work Phone: Comment on above: IG% - Immature Granu locytes (promyelocytes, myelocytes and metamyelocytes) > 1% indicates that a LEFT SHIFT is Present. MCH (RBC) [Entitic mass] 27.9 pg 27.0-32.0 [facility] Work Phone: Nucleated RBC/100 WBC (Bld) [Ratio] 0 % 0-5 [facility] Work Phone: MCHC Auto (RBC) [Mass/Vol]Or dered By: ED PROVIDER on 05-23-2022 MCHC (RBC) [Mass/Vol] 32.6 g/dL 32-36 [facility] Mucus LM Ql (Urine sed)Order ed By: Dr. Barajas on 05-23-2022 Mucus Ql (Urine sed) 0 SEEN /hpf [facility] Nitrite Test strip Ql (U)Ord ered By: Dr. Barajas on 05-23-2022 Nitrite Ql (U) Negative Negative [facility] No Panel Informationon 05-23 Estimated Creatinine Clearance Calc 108.10 ml/min [facility] Work Phone: Estimated GFR (MDRD) Amer 126 mL/min >60 [facility] Work Phone: Comment on above: GFR Calc Estimated GFR (MDRD) Non-Af Amer 104 mL/min >60 [facility] Work Phone: Comment on above: Non- GFR Calc No Panel InformationOrdered By: ED PROVIDER on 05-23-2022 27.9 pg 27.0-32.0 [facility] 15.9 % 11.6-14.6 [facility] 49.7 fl 35.1-43.9 [facility] 0.200 % 0.0-0.9 [facility] 0 % 0-5 [facility] No Panel InformationOrdered By: Dr. Barajas on 05-23-2022 104 mL/min >60 [facility] 126 mL/min >60 [facility] 108.10 ml/min [facility] 14.6 RATIO 10-20 [facility] 28.0 mmol/L 21.0-32.0 [facility] Platelets bldOrdered By: ED PROVIDER on 05-23-2022 Platelets (Bld) [#/Vol] 191 10*3/uL 150-450 [facility] Protein Test strip Ql (U)Ord ered By: Dr. Barajas on 05-23-2022 Protein Ql (U) 15 mg/dl Negative [facility] Serum or plasma calcium mg urement (mass/volume)Ordered By: Dr. Barajas on 05-23-2022 Calcium [Mass/Vol] 9.2 mg/dL 8.5-10.1 [facility] Serum or plasma creatinine m easurement (mass/volume)Ordered By: Dr. Barajas on 05-23-2022 Creatinine [Mass/Vol] 0.68 mg/dL 0.55-1.02 [facility] Comment on above: The validity of the calculated GFR & GFRAA in patients over 70 years has not been determined. Clinical correlation is essential. Serum or plasma urea nitroge n measurement (mass/volume)Ordered By: Dr. Barajas on 05-23-2022 Urea nitrogen [Mass/Vol] 10 mg/dL 7-18 [facility] Squamous epithelial cells de tection in urine sediment by light microscopyOrdered By: Dr. Barajas on 05-23-2022 Epithelial cells.squamous LM Ql (Urine sed) 5-10 SEEN /hpf 5-10 [facility] Thin prep Papanicolaou smear with manual screeningOrdered By: Dr. Barajas on 05-23-2022 Thin prep Papanicolaou smear with manual screening 4 5-15 [facility] Urine blood detectionOrdered By: Dr. Barajas on 05-23-2022 RBC Ql (U) Negative Negative [facility] RBC Ql (U) 0 SEEN /hpf 0-5 [facility] Urine clarityOrdered By: Dr. Barajas on 05-23-2022 Clarity (U) Sl. Cloudy Clear [facility] Urine color determinationOrd ered By: Dr. Barajas on 05-23-2022 Color (U) Yellow Yellow [facility] Urine glucose detectionOrder ed By: Dr. Barajas on 05-23-2022 Glucose Ql (U) Normal mg/dl Normal [facility] Urine leukocyte esterase det ection by dipstickOrdered By: Dr. Barajas on 05-23-2022 Leukocyte esterase Test strip Ql (U) Negative Negative [facility] Urine pHOrdered By: Dr. Nancy orantes on 05-23-2022 pH (U) 6.0 [pH] 5.0 - 8.0 [facility] Urine sediment bacteria coun t by microscopy (number/high power field)Ordered By: Dr. Barajas on 05-23-2022 Bacteria LM.HPF (Urine sed) [#/Area] RARE /hpf None Seen [facility] Urine specific gravity measu rementOrdered By: Dr. Barajas on 05-23-2022 Specific gravity (U) [Rel density] 1.025 1.002-1.030 [facility] Urobilinogen Auto test strip Ql (U)Ordered By: Dr. Barajas on 05-23-2022 Urobilinogen Ql (U) Normal mg/dl Normal [facility] Bacteria identified Anaer cx Nom (Unsp spec)Ordered By: Dr. Myrick on 04-19-2022 Anaerobic culture Prevotella bivia [facility] Anaerobic culture Prevotella melaninogenica [facility] Anaerobic culture Anaerobic cocci [facility] Bacteria identified Cx Nom ( Wound)Ordered By: Dr. Myrick on 04-18-2022 Routine wound culture Enterococcus faecalis [facility] No Panel InformationOrdered By: Dr. Aguila on 04-18-2022 No growth in 5 days. [facility] Basophil percentageOrdered B y: Dr. Myrick on 04-16-2022 Basophils (Bld) [#/Vol] 6.0 10*3/uL 4.4-11.0 [facility] Basophil percentageon 2021 WBC (Bld) [#/Vol] 6.0 10*3/uL 4.4-11.0 [facility] Work Phone: Blood erythrocytes count (nu mber/volume)Ordered By: Dr. Myrick on 04-16-2022 RBC (Bld) [#/Vol] 3.88 10*6/uL 4.2-5.4 [facility] Blood hemoglobin measurement (mass/volume)Ordered By: Dr. Myrick on 04-16-2022 Hemoglobin (Bld) [Mass/Vol] 10.4 g/dL 12.0-15.0 [facility] Blood platelet mean volumeOr dered By: Dr. Myrick on 04-16-2022 Platelet mean volume (Bld) [Entitic vol] 10.2 fL 6.2-12.0 [facility] Determination of erythrocyte mean corpuscular volume (MCV)Ordered By: Dr. Myrick on 04-16-2022 MCV (RBC) [Entitic vol] 84.8 fL 81-99 [facility] Hematocrit Auto (Bld) [Volum e fraction]Ordered By: Dr. Myrick on 04-16-2022 Hematocrit (Bld) [Volume fraction] 32.9 % 37-47 [facility] Laboratory - Hematology and Cell countson 04-16-2022 Erythrocyte distribution width (RBC) [Entitic vol] 38.4 fL 35.1-43.9 [facility] Work Phone: Erythrocyte distribution width (RBC) [Ratio] 12.5 % 11.6-14.6 [facility] Work Phone: MCH (RBC) [Entitic mass] 26.8 pg 27.0-32.0 [facility] Work Phone: MCHC Auto (RBC) [Mass/Vol]Or dered By: Dr. Myrick on 04-16-2022 MCHC (RBC) [Mass/Vol] 31.6 g/dL 32-36 [facility] No Panel InformationOrdered By: Dr. Myrick on 04-16-2022 26.8 pg 27.0-32.0 [facility] 12.5 % 11.6-14.6 [facility] 38.4 fl 35.1-43.9 [facility] Platelets bldOrdered By: Dr. Myrick on 04-16-2022 Platelets (Bld) [#/Vol] 205 10*3/uL 150-450 [facility] Glucose Glucometer (dC) [M ass/Vol]Ordered By: Dr. Moore on 04-15-2022 Glucose [Mass/Vol] 146 mg/dL 74-106 [facility] Comment on above: MANAGEMENT OF PATIEN T CARE PER NURSING PROTOCOL Gram stain for investigation of transfusion reactionOrdered By: Dr. Myrick on 04-15-2022 Microscopic observation Gram stain Nom (Unsp spec) [facility] No Panel Informationon 04-15 Thyroid Stimulating Hormone (TSH) 4.08 uIU/mL 0.358-3.74 [facility] Work Phone: No Panel InformationOrdered By: Dr. Garcia on 04-15-2022 4.08 uIU/mL 0.358-3.74 [facility] Whole blood hemoglobin A1c/t otal hemoglobin ratio (mass fraction)Ordered By: Dr. Garcia on 04-15-2022 HbA1c (Bld) [Mass fraction] 5.6 % 3.8-5.6 [facility] Comment on above: Normal < 5.7 % Predi abetic 5.7 - 6.4 % Diabetic >or= 6.5 % Please note range changes. Absolute lymphocyte countOrd ered By: Dr. Moore on 04-14-2022 Lymphocytes Auto (Unsp spec) [#/Vol] 1.36 10*3/uL 0.83-4.51 [facility] Basophil percentageOrdered B y: Dr. Myrick on 04-14-2022 Basophil percentage 122 mg/dL 74-106 [facility] Basophil percentage 7.5 g/dL 6.4-8.2 [facility] Basophil percentage 0.40 mg/dL 0.20-1.00 [facility] Basophil percentage 135 mmol/L 136-145 [facility] Basophil percentage 3.6 mmol/L 3.5-5.1 [facility] Basophil percentage 100 mmol/L 98-107 [facility] Basophil percentageOrdered B y: Dr. Moore on 04-14-2022 Basophils (Bld) [#/Vol] 5.8 10*3/uL 2.0-7.7 [facility] Basophils/100 WBC (Bld) 0.4 % 0-1 [facility] Basophils/100 WBC (Bld) 69.4 % 47-70 [facility] Basophils/100 WBC (Bld) 2.3 % 0-5 [facility] Basophil percentageon 2021 Bilirubin [Mass/Vol] 0.40 mg/dL 0.20-1.00 [facility] Work Phone: Comment on above: For patients on eltr ombopag therapy, use of Dimension [place] TBIL is not recommended. Chloride [Moles/Vol] 100 mmol/L 98-107 [facility] Work Phone: Eosinophils/100 WBC (Bld) 2.3 % 0-5 [facility] Work Phone: Glucose [Mass/Vol] 122 mg/dL 74-106 [facility] Work Phone: Comment on above: Fasting Glucose resu lt from 100 to 125 mg/dL suggests IMPAIRED HOMEOSTASIS per A.D.A. criteria. Neutrophils (Bld) [#/Vol] 5.8 10*3/uL 2.0-7.7 [facility] Work Phone: Neutrophils/100 WBC (Bld) 69.4 % 47-70 [facility] Work Phone: Potassium [Moles/Vol] 3.6 mmol/L 3.5-5.1 [facility] Work Phone: Protein [Mass/Vol] 7.5 g/dL 6.4-8.2 [facility] Work Phone: Sodium [Moles/Vol] 135 mmol/L 136-145 [facility] Work Phone: Blood lymphocytes/100 leukoc ytesOrdered By: Dr. Moore on 04-14-2022 Lymphocytes/100 WBC (Bld) 16.2 % 19-41 [facility] Blood monocytes/100 leukocyt esOrdered By: Dr. Moore on 04-14-2022 Monocytes/100 WBC (Bld) 11.5 % 0-10 [facility] Laboratory - Chemistry and C hemistry - challengeon 04-14-2022 ALP [Catalytic activity/Vol] 77 U/L 45-117 [facility] Work Phone: ALT [Catalytic activity/Vol] 16 U/L 13-56 [facility] Work Phone: CO2 [Moles/Vol] 26.0 mmol/L 21.0-32.0 [facility] Work Phone: Globulin (S) [Mass/Vol] 4.3 g/dL 2.2-4.2 [facility] Work Phone: Urea nitrogen/Creatinine [Mass ratio] 10.6 mg/mg 10-20 [facility] Work Phone: Laboratory - Hematology and Cell countson 04-14-2022 Immature granulocytes/100 WBC (Bld) 0.200 % 0.0-0.9 [facility] Work Phone: Comment on above: IG% - Immature Granu locytes (promyelocytes, myelocytes and metamyelocytes) > 1% indicates that a LEFT SHIFT is Present. Nucleated RBC/100 WBC (Bld) [Ratio] 0 % 0-5 [facility] Work Phone: No Panel Informationon 04-14 Estimated Creatinine Clearance Calc 95.11 ml/min [facility] Work Phone: Estimated GFR (MDRD) Amer 113 mL/min >60 [facility] Work Phone: Comment on above: GFR Calc Estimated GFR (MDRD) Non-Af Amer 93 mL/min >60 [facility] Work Phone: Comment on above: Non- GFR Calc No Panel InformationOrdered By: Dr. Moore on 04-14-2022 0.200 % 0.0-0.9 [facility] 0 % 0-5 [facility] No Panel InformationOrdered By: Dr. Myrick on 04-14-2022 93 mL/min >60 [facility] 113 mL/min >60 [facility] 95.11 ml/min [facility] 10.6 RATIO 10-20 [facility] 4.3 g/dL 2.2-4.2 [facility] 77 U/L 45-117 [facility] 16 U/L 13-56 [facility] 26.0 mmol/L 21.0-32.0 [facility] Serum or plasma albumin mg urement (mass/volume)Ordered By: Dr. Myrick on 04-14-2022 Albumin [Mass/Vol] 3.2 g/dL 3.2-5.0 [facility] Serum or plasma albumin/glob ulin mass ratioOrdered By: Dr. Myrick on 04-14-2022 Albumin/Globulin [Mass ratio] 0.7 {ratio} 0.9-2.4 [facility] Serum or plasma calcium mg urement (mass/volume)Ordered By: Dr. Myrick on 04-14-2022 Calcium [Mass/Vol] 9.1 mg/dL 8.5-10.1 [facility] Serum or plasma creatinine m easurement (mass/volume)Ordered By: Dr. Myrick on 04-14-2022 Creatinine [Mass/Vol] 0.75 mg/dL 0.55-1.02 [facility] Comment on above: The validity of the calculated GFR & GFRAA in patients over 70 years has not been determined. Clinical correlation is essential. Serum or plasma urea nitroge n measurement (mass/volume)Ordered By: Dr. Myrick on 04-14-2022 Urea nitrogen [Mass/Vol] 8 mg/dL 7-18 [facility] Thin prep Papanicolaou smear with manual screeningOrdered By: Dr. Myrick on 04-14-2022 Thin prep Papanicolaou smear with manual screening 8 U/L 15-37 [facility] Thin prep Papanicolaou smear with manual screening 9 5-15 [facility] INR in Blood by Coagulation assayOrdered By: Dr. Moore on 04-13-2022 INR Coag (Bld) [Relative time] 1.2 {INR} [facility] Laboratory - Coagulationon 1 06-13-2021 PT Coag (PPP) [Time] 14.4 s 11.7-14.9 [facility] Work Phone: No Panel InformationOrdered By: Dr. Moore on 04-13-2022 14.4 SECONDS 11.7-14.9 [facility] Absolute lymphocyte counton 04-12-2022 Lymphocytes Auto (Unsp spec) [#/Vol] 0.96 10*3/uL 0.83-4.51 [facility] Work Phone: Basophil percentageOrdered B y: Dr. Aguila on 04-12-2022 Basophil percentage 0 SEEN /hpf 0-5 [facility] Basophil percentage 1.6 mmol/L 0.4-2.0 [facility] Basophil percentageon 2021 Basophils/100 WBC (Bld) 0.4 % 0-1 [facility] Work Phone: Chloride [Moles/Vol] 102 mmol/L 98-107 [facility] Work Phone: Eosinophils/100 WBC (Bld) 0.8 % 0-5 [facility] Work Phone: Glucose [Mass/Vol] 109 mg/dL 74-106 [facility] Work Phone: Comment on above: Fasting Glucose resu lt from 100 to 125 mg/dL suggests IMPAIRED HOMEOSTASIS per A.D.A. criteria. Lactate [Moles/Vol] 1.6 mmol/L 0.4-2.0 [facility] Work Phone: Neutrophils (Bld) [#/Vol] 6.4 10*3/uL 2.0-7.7 [facility] Work Phone: Neutrophils/100 WBC (Bld) 76.7 % 47-70 [facility] Work Phone: Potassium [Moles/Vol] 3.3 mmol/L 3.5-5.1 [facility] Work Phone: Sodium [Moles/Vol] 137 mmol/L 136-145 [facility] Work Phone: WBC (Bld) [#/Vol] 8.3 10*3/uL 4.4-11.0 [facility] Work Phone: Bilirubin Test strip Ql (U)O rdered By: Dr. Aguila on 04-12-2022 Bilirubin Ql (U) Negative Negative [facility] Blood erythrocytes count (nu mber/volume)on 04-12-2022 RBC (Bld) [#/Vol] 4.40 10*6/uL 4.2-5.4 [facility] Work Phone: Blood hemoglobin measurement (mass/volume)on 04-12-2022 Hemoglobin (Bld) [Mass/Vol] 11.9 g/dL 12.0-15.0 [facility] Work Phone: Blood lymphocytes/100 leukoc yteson 04-12-2022 Lymphocytes/100 WBC (Bld) 11.6 % 19-41 [facility] Work Phone: Blood monocytes/100 leukocyt eson 04-12-2022 Monocytes/100 WBC (Bld) 10.3 % 0-10 [facility] Work Phone: [phone] Blood platelet mean volumeon 04-12-2022 Platelet mean volume (Bld) [Entitic vol] 10.4 fL 6.2-12.0 [facility] Work Phone: [phone] Determination of erythrocyte mean corpuscular volume (MCV)on 04-12-2022 MCV (RBC) [Entitic vol] 82.3 fL 81-99 [facility] Work Phone: [phone] Hematocrit Auto (Bld) [Volum e fraction]on 04-12-2022 Hematocrit (Bld) [Volume fraction] 36.2 % 37-47 [facility] Work Phone: [phone] Influenza virus A and B and SARS-CoV-2 (COVID-19) Ag panel - Upper respiratory specimOrdered By: Dr. Aguila on 04-12-2022 SARS-CoV-2 (COVID-19) RNA JONE+probe Ql (Resp) [facility] Ketones Test strip Ql (U)Ord ered By: Dr. Aguila on 04-12-2022 Ketones Ql (U) Negative Negative [facility] Laboratory - Chemistry and C hemistry - challengeon 04-12-2022 CO2 [Moles/Vol] 28.0 mmol/L 21.0-32.0 [facility] Work Phone: [phone] Urea nitrogen/Creatinine [Mass ratio] 7.1 mg/mg 10-20 [facility] Work Phone: [phone] Laboratory - Hematology and Cell countson 04-12-2022 Erythrocyte distribution width (RBC) [Entitic vol] 37.9 fL 35.1-43.9 [facility] Work Phone: [phone] Erythrocyte distribution width (RBC) [Ratio] 12.4 % 11.6-14.6 [facility] Work Phone: [phone] Immature granulocytes/100 WBC (Bld) 0.200 % 0.0-0.9 [facility] Work Phone: [phone] Comment on above: IG% - Immature Granu locytes (promyelocytes, myelocytes and metamyelocytes) > 1% indicates that a LEFT SHIFT is Present. MCH (RBC) [Entitic mass] 27.0 pg 27.0-32.0 [facility] Work Phone: Nucleated RBC/100 WBC (Bld) [Ratio] 0 % 0-5 [facility] Work Phone: MCHC Auto (RBC) [Mass/Vol]on 04-12-2022 MCHC (RBC) [Mass/Vol] 32.9 g/dL 32-36 [facility] Work Phone: Mucus LM Ql (Urine sed)Order ed By: Dr. Aguila on 04-12-2022 Mucus Ql (Urine sed) 0 SEEN /hpf [facility] Nitrite Test strip Ql (U)Ord ered By: Dr. Aguila on 04-12-2022 Nitrite Ql (U) Negative Negative [facility] No Panel Informationon 04-12 D-Dimer Quantitative (PE/DVT) 1.56 FEU/ug/m 0.27-0.49 [facility] Work Phone: Comment on above: D-Dimer ELEVATED (>0 .49): Additional studies and clinicalassessments are indicated to conclude diagnosis of:Deep Vein Thrombosis (DVT) or Pulmonary Embolism (PE) D-Dimer ELEVATED (>0 .49): Additional studies and clinicalassessments are indicated to conclude diagnosis of:Deep Vein Thrombosis (DVT) or Pulmonary Embolism (PE)CRITICAL VALUE VERIFIED. CALLED TO SABRINA QUINN RN [id number]/ [id number] [address].RESULTS READ BACK BY SAME. Previous reported result: 1.56 FEU/ug/mEdited by: ARLENE on 04/13/22:0019 AMENDED REPORT 04/13/22 0019 D-DIMER QUANT previously reported as: 1.56 *H FEU/ug/m D-Dimer ELEVATED (>0.49): Additional studies and clinicalassessments are indicated to conclude diagnosis of:Deep Vein Thrombosis (DVT) or Pulmonary Embolism (PE) Estimated Creatinine Clearance Calc 101.90 ml/min [facility] Work Phone: Estimated GFR (MDRD) Amer 122 mL/min >60 [facility] Work Phone: Comment on above: GFR Calc Estimated GFR (MDRD) Non-Af Amer 101 mL/min >60 [facility] Work Phone: Comment on above: Non- GFR Calc No Panel InformationOrdered By: Dr. Aguila on 04-12-2022 1.56 FEU/ug/m 0.27-0.49 [facility] Platelets bldon 04-12-2022 Platelets (Bld) [#/Vol] 255 10*3/uL 150-450 [facility] Work Phone: Protein Test strip Ql (U)Ord ered By: Dr. Aguila on 04-12-2022 Protein Ql (U) Negative Negative [facility] Serum or plasma calcium mg urement (mass/volume)on 04-12-2022 Calcium [Mass/Vol] 9.0 mg/dL 8.5-10.1 [facility] Work Phone: Serum or plasma creatinine m easurement (mass/volume)on 04-12-2022 Creatinine [Mass/Vol] 0.70 mg/dL 0.55-1.02 [facility] Work Phone: Comment on above: The validity of the calculated GFR & GFRAA in patients over 70 years has not been determined. Clinical correlation is essential. Serum or plasma urea nitroge n measurement (mass/volume)on 04-12-2022 Urea nitrogen [Mass/Vol] 5 mg/dL 7-18 [facility] Work Phone: Squamous epithelial cells de tection in urine sediment by light microscopyOrdered By: Dr. Aguila on 04-12-2022 Epithelial cells.squamous LM Ql (Urine sed) 0-5 SEEN /hpf 5-10 [facility] Thin prep Papanicolaou smear with manual screeningon 04-12-2022 Thin prep Papanicolaou smear with manual screening 7 5-15 [facility] Work Phone: Urine blood detectionOrdered By: Dr. Aguila on 04-12-2022 RBC Ql (U) Negative Negative [facility] RBC Ql (U) 0 SEEN /hpf 0-5 [facility] Urine clarityOrdered By: Dr. Aguila on 04-12-2022 Clarity (U) Clear Clear [facility] Urine color determinationOrd ered By: Dr. Aguila on 04-12-2022 Color (U) Yellow Yellow [facility] Urine glucose detectionOrder ed By: Dr. Aguila on 04-12-2022 Glucose Ql (U) Normal mg/dl Normal [facility] Urine leukocyte esterase det ection by dipstickOrdered By: Dr. Aguila on 04-12-2022 Leukocyte esterase Test strip Ql (U) 25 /ul Negative [facility] Urine pHOrdered By: Dr. Presley baxter on 04-12-2022 pH (U) 6.5 [pH] 5.0 - 8.0 [facility] Urine sediment bacteria coun t by microscopy (number/high power field)Ordered By: Dr. Aguila on 04-12-2022 Bacteria LM.HPF (Urine sed) [#/Area] 0 /[HPF] None Seen [facility] Urine specific gravity measu rementOrdered By: Dr. Aguila on 04-12-2022 Specific gravity (U) [Rel density] 1.010 1.002-1.030 [facility] Urobilinogen Auto test strip Ql (U)Ordered By: Dr. Aguila on 04-12-2022 Urobilinogen Ql (U) Normal mg/dl Normal [facility] Bacteria identified Cx Nom ( U)Ordered By: Dr. Myrick on 03-31-2022 Culture, urine Mixed Gram Pos & Gra m Neg Org [facility] Absolute lymphocyte countOrd ered By: Dr. Kulkarni on 03-30-2022 Lymphocytes Auto (Unsp spec) [#/Vol] 1.50 10*3/uL 0.83-4.51 [facility] Basophil percentageOrdered B y: Dr. uKlkarni on 03-30-2022 Basophil percentage 102 mg/dL 74-106 [facility] Basophil percentage 7.3 g/dL 6.4-8.2 [facility] Basophil percentage 0.40 mg/dL 0.20-1.00 [facility] Basophil percentage 137 mmol/L 136-145 [facility] Basophil percentage 3.8 mmol/L 3.5-5.1 [facility] Basophil percentage 105 mmol/L 98-107 [facility] Basophils (Bld) [#/Vol] 6.5 10*3/uL 4.4-11.0 [facility] Basophils (Bld) [#/Vol] 4.2 10*3/uL 2.0-7.7 [facility] Basophils/100 WBC (Bld) 0.3 % 0-1 [facility] Basophils/100 WBC (Bld) 64.8 % 47-70 [facility] Basophils/100 WBC (Bld) 4.0 % 0-5 [facility] Basophil percentageon 2021 Bilirubin [Mass/Vol] 0.40 mg/dL 0.20-1.00 [facility] Work Phone: Comment on above: For patients on eltr ombopag therapy, use of Dimension [place] TBIL is not recommended. Chloride [Moles/Vol] 105 mmol/L 98-107 [facility] Work Phone: Eosinophils/100 WBC (Bld) 4.0 % 0-5 [facility] Work Phone: Glucose [Mass/Vol] 102 mg/dL 74-106 [facility] Work Phone: Comment on above: Fasting Glucose resu lt from 100 to 125 mg/dL suggests IMPAIRED HOMEOSTASIS per A.D.A. criteria. Neutrophils (Bld) [#/Vol] 4.2 10*3/uL 2.0-7.7 [facility] Work Phone: Neutrophils/100 WBC (Bld) 64.8 % 47-70 [facility] Work Phone: Potassium [Moles/Vol] 3.8 mmol/L 3.5-5.1 [facility] Work Phone: Protein [Mass/Vol] 7.3 g/dL 6.4-8.2 [facility] Work Phone: Sodium [Moles/Vol] 137 mmol/L 136-145 [facility] Work Phone: WBC (Bld) [#/Vol] 6.5 10*3/uL 4.4-11.0 [facility] Work Phone: Blood erythrocytes count (nu mber/volume)Ordered By: Dr. Kulkarni on 03-30-2022 RBC (Bld) [#/Vol] 4.60 10*6/uL 4.2-5.4 [facility] Blood hemoglobin measurement (mass/volume)Ordered By: Dr. Kulkarni on 03-30-2022 Hemoglobin (Bld) [Mass/Vol] 13.0 g/dL 12.0-15.0 [facility] Blood lymphocytes/100 leukoc ytesOrdered By: Dr. Kulkarni on 03-30-2022 Lymphocytes/100 WBC (Bld) 23.1 % 19-41 [facility] Blood monocytes/100 leukocyt esOrdered By: Dr. Kulkarni on 03-30-2022 Monocytes/100 WBC (Bld) 7.5 % 0-10 [facility] Blood platelet mean volumeOr dered By: Dr. Kulkarni on 03-30-2022 Platelet mean volume (Bld) [Entitic vol] 10.5 fL 6.2-12.0 [facility] Determination of erythrocyte mean corpuscular volume (MCV)Ordered By: Dr. Kulkarni on 03-30-2022 MCV (RBC) [Entitic vol] 84.6 fL 81-99 [facility] Hematocrit Auto (Bld) [Volum e fraction]Ordered By: Dr. Kulkarni on 03-30-2022 Hematocrit (Bld) [Volume fraction] 38.9 % 37-47 [facility] Laboratory - Chemistry and C hemistry - challengeon 03-30-2022 ALP [Catalytic activity/Vol] 69 U/L 45-117 [facility] Work Phone: ALT [Catalytic activity/Vol] 31 U/L 13-56 [facility] Work Phone: CO2 [Moles/Vol] 27.0 mmol/L 21.0-32.0 [facility] Work Phone: Globulin (S) [Mass/Vol] 3.7 g/dL 2.2-4.2 [facility] Work Phone: Urea nitrogen/Creatinine [Mass ratio] 12.7 mg/mg 10-20 [facility] Work Phone: [phone] Bilirubin Ql (U) Negative [facility] Work Phone: [phone] Glucose Ql (U) Negative [facility] Work Phone: [phone] Ketones Ql (U) Negative [facility] Work Phone: [phone] pH (U) 6.5 [pH] [facility] Work Phone: [phone] Specific gravity (U) [Rel density] 1.025 [facility] Work Phone: [phone] Urobilinogen (U) [Mass/Vol] 0.9581778 mg/dL [facility] Work Phone: [phone] Laboratory - Hematology and Cell countson 03-30-2022 Erythrocyte distribution width (RBC) [Entitic vol] 37.9 fL 35.1-43.9 [facility] Work Phone: [phone] Erythrocyte distribution width (RBC) [Ratio] 12.5 % 11.6-14.6 [facility] Work Phone: [phone] Immature granulocytes/100 WBC (Bld) 0.300 % 0.0-0.9 [facility] Work Phone: [phone] Comment on above: IG% - Immature Granu locytes (promyelocytes, myelocytes and metamyelocytes) > 1% indicates that a LEFT SHIFT is Present. MCH (RBC) [Entitic mass] 28.3 pg 27.0-32.0 [facility] Work Phone: [phone] Nucleated RBC/100 WBC (Bld) [Ratio] 0 % 0-5 [facility] Work Phone: [phone] Hemoglobin Ql (U) Negative [facility] Work Phone: [phone] Laboratory - Specimen inform ationon 03-30-2022 Clarity (U) Clear [facility] Work Phone: [phone] Color (U) Yellow [facility] Work Phone: [phone] Laboratory - Urinalysison Nitrite Ql (U) Negative [facility] Work Phone: Protein Ql (U) Negative [facility] Work Phone: MCHC Auto (RBC) [Mass/Vol]Or dered By: Dr. Kulkarni on 03-30-2022 MCHC (RBC) [Mass/Vol] 33.4 g/dL 32-36 [facility] No Panel Informationon 03-30 Estimated Creatinine Clearance Calc 104.52 ml/min [facility] Work Phone: Estimated GFR (MDRD) Amer 121 mL/min >60 [facility] Work Phone: Comment on above: GFR Calc Estimated GFR (MDRD) Non-Af Amer 100 mL/min >60 [facility] Work Phone: Comment on above: Non- GFR Calc Urine Leukocytes Negve [facility] Work Phone: Yellow [facility] Clear [facility] Negative [facility] 1.025 [facility] 6.5 [facility] 0.2 mg/dL [facility] Negve [facility] No Panel InformationOrdered By: Dr. Kulkarni on 03-30-2022 28.3 pg 27.0-32.0 [facility] 12.5 % 11.6-14.6 [facility] 37.9 fl 35.1-43.9 [facility] 0.300 % 0.0-0.9 [facility] 0 % 0-5 [facility] 100 mL/min >60 [facility] 121 mL/min >60 [facility] 104.52 ml/min [facility] 12.7 RATIO 10-20 [facility] 3.7 g/dL 2.2-4.2 [facility] 69 U/L 45-117 [facility] 31 U/L 13-56 [facility] 27.0 mmol/L 21.0-32.0 [facility] Platelets bldOrdered By: Dr. Kulkarni on 03-30-2022 Platelets (Bld) [#/Vol] 243 10*3/uL 150-450 [facility] Serum or plasma albumin mg urement (mass/volume)Ordered By: Dr. Kulkarni on 03-30-2022 Albumin [Mass/Vol] 3.6 g/dL 3.2-5.0 [facility] Serum or plasma albumin/glob ulin mass ratioOrdered By: Dr. Kulkarni on 03-30-2022 Albumin/Globulin [Mass ratio] 1.0 {ratio} 0.9-2.4 [facility] Serum or plasma calcium gm urement (mass/volume)Ordered By: Dr. Kulkarni on 03-30-2022 Calcium [Mass/Vol] 9.1 mg/dL 8.5-10.1 [facility] Serum or plasma creatinine m easurement (mass/volume)Ordered By: Dr. Kulkarni on 03-30-2022 Creatinine [Mass/Vol] 0.71 mg/dL 0.55-1.02 [facility] Comment on above: The validity of the calculated GFR & GFRAA in patients over 70 years has not been determined. Clinical correlation is essential. Serum or plasma urea nitroge n measurement (mass/volume)Ordered By: Dr. Kulkarni on 03-30-2022 Urea nitrogen [Mass/Vol] 9 mg/dL 7-18 [facility] Thin prep Papanicolaou smear with manual screeningOrdered By: Dr. Kulkarni on 03-30-2022 Thin prep Papanicolaou smear with manual screening 17 U/L 15-37 [facility] Thin prep Papanicolaou smear with manual screening 5 5-15 [facility] Basophil percentageOrdered B y: Dr. Moore on 03-23-2022 Basophils (Bld) [#/Vol] 9.1 10*3/uL 4.4-11.0 [facility] Basophil percentageon 2021 WBC (Bld) [#/Vol] 9.1 10*3/uL 4.4-11.0 [facility] Work Phone: Blood erythrocytes count (nu mber/volume)Ordered By: Dr. Moore on 03-23-2022 RBC (Bld) [#/Vol] 4.74 10*6/uL 4.2-5.4 [facility] Blood hemoglobin measurement (mass/volume)Ordered By: Dr. Moore on 03-23-2022 Hemoglobin (Bld) [Mass/Vol] 13.4 g/dL 12.0-15.0 [facility] Blood platelet mean volumeOr dered By: Dr. Moore on 03-23-2022 Platelet mean volume (Bld) [Entitic vol] 10.6 fL 6.2-12.0 [facility] Determination of erythrocyte mean corpuscular volume (MCV)Ordered By: Dr. Moore on 03-23-2022 MCV (RBC) [Entitic vol] 84.8 fL 81-99 [facility] Glucose Glucometer (BldC) [M ass/Vol]Ordered By: Dr. Moore on 03-23-2022 Glucose [Mass/Vol] 142 mg/dL 74-106 [facility] Comment on above: MANAGEMENT OF PATIEN T CARE PER NURSING PROTOCOL Hematocrit Auto (Bld) [Volum e fraction]Ordered By: Dr. Moore on 03-23-2022 Hematocrit (Bld) [Volume fraction] 40.2 % 37-47 [facility] Laboratory - Hematology and Cell countson 03-23-2022 Erythrocyte distribution width (RBC) [Entitic vol] 38.3 fL 35.1-43.9 [facility] Work Phone: Erythrocyte distribution width (RBC) [Ratio] 12.4 % 11.6-14.6 [facility] Work Phone: MCH (RBC) [Entitic mass] 28.3 pg 27.0-32.0 [facility] Work Phone: MCHC Auto (RBC) [Mass/Vol]Or dered By: Dr. Moore on 03-23-2022 MCHC (RBC) [Mass/Vol] 33.3 g/dL 32-36 [facility] No Panel InformationOrdered By: Dr. Moore on 03-23-2022 28.3 pg 27.0-32.0 [facility] 12.4 % 11.6-14.6 [facility] 38.3 fl 35.1-43.9 [facility] Platelets bldOrdered By: Dr. Moore on 03-23-2022 Platelets (Bld) [#/Vol] 172 10*3/uL 150-450 [facility] Absolute lymphocyte countOrd ered By: Dr. Moore on 03-22-2022 Lymphocytes Auto (Unsp spec) [#/Vol] 0.61 10*3/uL 0.83-4.51 [facility] Basophil percentageOrdered B y: Dr. Moore on 03-22-2022 Basophils (Bld) [#/Vol] 10.2 10*3/uL 2.0-7.7 [facility] Basophils/100 WBC (Bld) 0.1 % 0-1 [facility] Basophils/100 WBC (Bld) 89.1 % 47-70 [facility] Basophils/100 WBC (Bld) 0.0 % 0-5 [facility] Basophil percentageon 2021 Eosinophils/100 WBC (Bld) 0.0 % 0-5 [facility] Work Phone: Neutrophils (Bld) [#/Vol] 10.2 10*3/uL 2.0-7.7 [facility] Work Phone: Neutrophils/100 WBC (Bld) 89.1 % 47-70 [facility] Work Phone: Blood lymphocytes/100 leukoc ytesOrdered By: Dr. Moore on 03-22-2022 Lymphocytes/100 WBC (Bld) 5.3 % 19-41 [facility] Blood monocytes/100 leukocyt esOrdered By: Dr. Moore on 03-22-2022 Monocytes/100 WBC (Bld) 5.1 % 0-10 [facility] Laboratory - Chemistry and C hemistry - challengeon 03-22-2022 HCG ( test) Ql (U) Negative [facility] Work Phone: Comment on above: Very dilute urine sp ecimens, as indicated by a low specificgravity, may not contain field representative levels of hCG. If is still suspected, a first morning urinespecimen should be collected 48 hours later and tested. Laboratory - Hematology and Cell countson 03-22-2022 Immature granulocytes/100 WBC (Bld) 0.400 % 0.0-0.9 [facility] Work Phone: Comment on above: IG% - Immature Granu locytes (promyelocytes, myelocytes and metamyelocytes) > 1% indicates that a LEFT SHIFT is Present. Nucleated RBC/100 WBC (Bld) [Ratio] 0 % 0-5 [facility] Work Phone: No Panel InformationOrdered By: Dr. Moore on 03-22-2022 0.400 % 0.0-0.9 [facility] 0 % 0-5 [facility] No Panel InformationOrdered By: Dr. Curry on 03-22-[address] [facility] Absolute lymphocyte countOrd ered By: Dr. Melgar on 03-04-2022 Lymphocytes Auto (Unsp spec) [#/Vol] 1.33 10*3/uL 0.83-4.51 [facility] Basophil percentageOrdered B y: Dr. Melgar on 03-04-2022 Basophil percentage 87 mg/dL 74-106 [facility] Basophil percentage 139 mmol/L 136-145 [facility] Basophil percentage 4.0 mmol/L 3.5-5.1 [facility] Basophil percentage 107 mmol/L 98-107 [facility] Basophils (Bld) [#/Vol] 5.5 10*3/uL 4.4-11.0 [facility] Basophils (Bld) [#/Vol] 3.4 10*3/uL 2.0-7.7 [facility] Basophils/100 WBC (Bld) 0.5 % 0-1 [facility] Basophils/100 WBC (Bld) 61.9 % 47-70 [facility] Basophils/100 WBC (Bld) 3.5 % 0-5 [facility] Basophil percentageon 2021 Chloride [Moles/Vol] 107 mmol/L 98-107 [facility] Work Phone: Eosinophils/100 WBC (Bld) 3.5 % 0-5 [facility] Work Phone: Glucose [Mass/Vol] 87 mg/dL 74-106 [facility] Work Phone: Neutrophils (Bld) [#/Vol] 3.4 10*3/uL 2.0-7.7 [facility] Work Phone: Neutrophils/100 WBC (Bld) 61.9 % 47-70 [facility] Work Phone: Potassium [Moles/Vol] 4.0 mmol/L 3.5-5.1 [facility] Work Phone: Sodium [Moles/Vol] 139 mmol/L 136-145 [place] [facility] Work Phone: WBC (Bld) [#/Vol] 5.5 10*3/uL 4.4-11.0 [facility] Work Phone: Blood erythrocytes count (nu mber/volume)Ordered By: Dr. Melgar on 03-04-2022 RBC (Bld) [#/Vol] 5.22 10*6/uL 4.2-5.4 [facility] Blood hemoglobin measurement (mass/volume)Ordered By: Dr. Melgar on 03-04-2022 Hemoglobin (Bld) [Mass/Vol] 15.2 g/dL 12.0-15.0 [facility] Blood lymphocytes/100 leukoc ytesOrdered By: Dr. Melgar on 03-04-2022 Lymphocytes/100 WBC (Bld) 24.4 % 19-41 [facility] Blood monocytes/100 leukocyt esOrdered By: Dr. Melgar on 03-04-2022 Monocytes/100 WBC (Bld) 9.5 % 0-10 [facility] Blood platelet mean volumeOr dered By: Dr. Melgar on 03-04-2022 Platelet mean volume (Bld) [Entitic vol] 11.1 fL 6.2-12.0 [facility] Determination of erythrocyte mean corpuscular volume (MCV)Ordered By: Dr. Melgar on 03-04-2022 MCV (RBC) [Entitic vol] 87.0 fL 81-99 [facility] Hematocrit Auto (Bld) [Volum e fraction]Ordered By: Dr. Melgar on 03-04-2022 Hematocrit (Bld) [Volume fraction] 45.4 % 37-47 [facility] Laboratory - Chemistry and C hemistry - challengeon 03-04-2022 CO2 [Moles/Vol] 27.0 mmol/L 21.0-32.0 [facility] Work Phone: Urea nitrogen/Creatinine [Mass ratio] 12.2 mg/mg 10-20 [facility] Work Phone: [phone] Laboratory - Hematology and Cell countson 03-04-2022 Erythrocyte distribution width (RBC) [Entitic vol] 39.7 fL 35.1-43.9 [facility] Work Phone: [phone] Erythrocyte distribution width (RBC) [Ratio] 12.5 % 11.6-14.6 [facility] Work Phone: [phone] Immature granulocytes/100 WBC (Bld) 0.200 % 0.0-0.9 [facility] Work Phone: [phone] Comment on above: IG% - Immature Granu locytes (promyelocytes, myelocytes and metamyelocytes) > 1% indicates that a LEFT SHIFT is Present. MCH (RBC) [Entitic mass] 29.1 pg 27.0-32.0 [facility] Work Phone: Nucleated RBC/100 WBC (Bld) [Ratio] 0 % 0-5 [facility] Work Phone: MCHC Auto (RBC) [Mass/Vol]Or dered By: Dr. Melgar on 03-04-2022 MCHC (RBC) [Mass/Vol] 33.5 g/dL 32-36 [facility] No Panel Informationon 03-04 Estimated Creatinine Clearance Calc 86.99 ml/min [facility] Work Phone: [phone] Estimated GFR (MDRD) Amer 102 mL/min >60 [facility] Work Phone: [phone] Comment on above: GFR Calc Estimated GFR (MDRD) Non-Af Amer 84 mL/min >60 [facility] Work Phone: [phone] Comment on above: Non- GFR Calc No Panel InformationOrdered By: Dr. Melgar on 03-04-2022 29.1 pg 27.0-32.0 [facility] 12.5 % 11.6-14.6 [facility] 39.7 fl 35.1-43.9 [facility] 0.200 % 0.0-0.9 [facility] 0 % 0-5 [facility] 84 mL/min >60 [facility] 102 mL/min >60 [facility] 86.99 ml/min [facility] 12.2 RATIO 10-20 [facility] 27.0 mmol/L 21.0-32.0 [facility] Platelets bldOrdered By: Dr. Melgar on 03-04-2022 Platelets (Bld) [#/Vol] 182 10*3/uL 150-450 [facility] Serum or plasma calcium mg urement (mass/volume)Ordered By: Dr. Melgar on 03-04-2022 Calcium [Mass/Vol] 9.1 mg/dL 8.5-10.1 [facility] Serum or plasma creatinine m easurement (mass/volume)Ordered By: Dr. Melgar on 03-04-2022 Creatinine [Mass/Vol] 0.82 mg/dL 0.55-1.02 [facility] Comment on above: The validity of the calculated GFR & GFRAA in patients over 70 years has not been determined. Clinical correlation is essential. Serum or plasma urea nitroge n measurement (mass/volume)Ordered By: Dr. Melgar on 03-04-2022 Urea nitrogen [Mass/Vol] 10 mg/dL 7-18 [facility] Thin prep Papanicolaou smear with manual screeningOrdered By: Dr. Melgar on 03-04-2022 Thin prep Papanicolaou smear with manual screening 5 5-15 [facility] Laboratory - Chemistry and C hemistry - challengeon 03-02-2022 Magnesium [Mass/Vol] 1.8 mg/dL 1.6-2.6 [facility] Work Phone: No Panel InformationOrdered By: Dr. Garcia on 03-02-2022 1.8 mg/dL 1.6-2.6 [facility] Bacteria identified Cx Nom ( U)Ordered By: Dr. Moore on 02-16-2022 Culture, urine Positive [facility] Absolute lymphocyte countOrd ered By: Dr. Moore on 02-15-2022 Lymphocytes Auto (Unsp spec) [#/Vol] 1.31 10*3/uL 0.83-4.51 [facility] Basophil percentageOrdered B y: Dr. Guzman on 02-15-2022 Basophil percentage 0-5 SEEN /hpf 0-5 [facility] Basophil percentageOrdered B y: Dr. Moore on 02-15-2022 Basophil percentage 101 mg/dL 74-106 [facility] Basophil percentage 7.3 g/dL 6.4-8.2 [facility] Basophil percentage 0.40 mg/dL 0.20-1.00 [facility] Basophil percentage 140 mmol/L 136-145 [facility] Basophil percentage 4.2 mmol/L 3.5-5.1 [facility] Basophil percentage 108 mmol/L 98-107 [facility] Basophils (Bld) [#/Vol] 4.7 10*3/uL 4.4-11.0 [facility] Basophils (Bld) [#/Vol] 2.7 10*3/uL 2.0-7.7 [facility] Basophils/100 WBC (Bld) 0.6 % 0-1 [facility] Basophils/100 WBC (Bld) 57.4 % 47-70 [facility] Basophils/100 WBC (Bld) 3.6 % 0-5 [facility] Basophil percentageon 2021 Bilirubin [Mass/Vol] 0.40 mg/dL 0.20-1.00 [facility] Work Phone: Comment on above: For patients on eltr ombopag therapy, use of Dimension [place] TBIL is not recommended. Chloride [Moles/Vol] 108 mmol/L 98-107 [facility] Work Phone: Eosinophils/100 WBC (Bld) 3.6 % 0-5 [facility] Work Phone: Glucose [Mass/Vol] 101 mg/dL 74-106 [facility] Work Phone: Comment on above: Fasting Glucose resu lt from 100 to 125 mg/dL suggests IMPAIRED HOMEOSTASIS per A.D.A. criteria. Neutrophils (Bld) [#/Vol] 2.7 10*3/uL 2.0-7.7 [facility] Work Phone: Neutrophils/100 WBC (Bld) 57.4 % 47-70 [facility] Work Phone: Potassium [Moles/Vol] 4.2 mmol/L 3.5-5.1 [facility] Work Phone: Protein [Mass/Vol] 7.3 g/dL 6.4-8.2 [facility] Work Phone: Sodium [Moles/Vol] 140 mmol/L 136-145 [facility] Work Phone: WBC (Bld) [#/Vol] 4.7 10*3/uL 4.4-11.0 [facility] Work Phone: Bilirubin Test strip Ql (U)O rdered By: Dr. Guzman on 02-15-2022 Bilirubin Ql (U) Negative Negative [facility] Blood erythrocytes count (nu mber/volume)Ordered By: Dr. Moore on 02-15-2022 RBC (Bld) [#/Vol] 4.94 10*6/uL 4.2-5.4 [facility] Blood hemoglobin measurement (mass/volume)Ordered By: Dr. Moore on 02-15-2022 Hemoglobin (Bld) [Mass/Vol] 13.9 g/dL 12.0-15.0 [facility] Blood lymphocytes/100 leukoc ytesOrdered By: Dr. Moore on 02-15-2022 Lymphocytes/100 WBC (Bld) 28.1 % 19-41 [facility] Blood monocytes/100 leukocyt esOrdered By: Dr. Moore on 02-15-2022 Monocytes/100 WBC (Bld) 10.1 % 0-10 [facility] Blood platelet mean volumeOr dered By: Dr. Moore on 02-15-2022 Platelet mean volume (Bld) [Entitic vol] 11.0 fL 6.2-12.0 [facility] Determination of erythrocyte mean corpuscular volume (MCV)Ordered By: Dr. Moore on 02-15-2022 MCV (RBC) [Entitic vol] 87.4 fL 81-99 [facility] Hematocrit Auto (Bld) [Volum e fraction]Ordered By: Dr. Moore on 02-15-2022 Hematocrit (Bld) [Volume fraction] 43.2 % 37-47 [facility] Ketones Test strip Ql (U)Ord ered By: Dr. Guzman on 02-15-2022 Ketones Ql (U) Negative Negative [facility] Laboratory - Chemistry and C hemistry - challengeon 02-15-2022 HCG ( test) Ql (U) Negative [facility] Work Phone: Comment on above: Very dilute urine sp ecimens, as indicated by a low specificgravity, may not contain field representative levels of hCG. If is still suspected, a first morning urinespecimen should be collected 48 hours later and tested. ALP [Catalytic activity/Vol] 62 U/L 45-117 [facility] Work Phone: ALT [Catalytic activity/Vol] 21 U/L 13-56 [facility] Work Phone: [phone] CO2 [Moles/Vol] 29.0 mmol/L 21.0-32.0 [facility] Work Phone: [phone] Globulin (S) [Mass/Vol] 3.5 g/dL 2.2-4.2 [facility] Work Phone: [phone] Urea nitrogen/Creatinine [Mass ratio] 10.7 mg/mg 10-20 [facility] Work Phone: [phone] Laboratory - Hematology and Cell countson 02-15-2022 Erythrocyte distribution width (RBC) [Entitic vol] 40.2 fL 35.1-43.9 [facility] Work Phone: [phone] Erythrocyte distribution width (RBC) [Ratio] 12.6 % 11.6-14.6 [facility] Work Phone: [phone] Immature granulocytes/100 WBC (Bld) 0.200 % 0.0-0.9 [facility] Work Phone: [phone] Comment on above: IG% - Immature Granu locytes (promyelocytes, myelocytes and metamyelocytes) > 1% indicates that a LEFT SHIFT is Present. MCH (RBC) [Entitic mass] 28.1 pg 27.0-32.0 [facility] Work Phone: Nucleated RBC/100 WBC (Bld) [Ratio] 0 % 0-5 [facility] Work Phone: MCHC Auto (RBC) [Mass/Vol]Or dered By: Dr. Moore on 02-15-2022 MCHC (RBC) [Mass/Vol] 32.2 g/dL 32-36 [facility] Mucus LM Ql (Urine sed)Order ed By: Dr. Guzman on 02-15-2022 Mucus Ql (Urine sed) 0 SEEN /hpf [facility] Nitrite Test strip Ql (U)Ord ered By: Dr. Guzman on 02-15-2022 Nitrite Ql (U) Negative Negative [facility] No Panel InformationOrdered By: Dr. Guzman on 02-15-[address] [facility] No Panel Informationon 02-15 Estimated GFR (MDRD) Amer 114 mL/min >60 [facility] Work Phone: Comment on above: GFR Calc Estimated GFR (MDRD) Non-Af Amer 94 mL/min >60 [facility] Work Phone: Comment on above: Non- GFR Calc Thyroid Stimulating Hormone (TSH) 0.62 uIU/mL 0.358-3.74 [facility] Work Phone: No Panel InformationOrdered By: Dr. Moore on 02-15-2022 28.1 pg 27.0-32.0 [facility] 12.6 % 11.6-14.6 [facility] 40.2 fl 35.1-43.9 [facility] 0.200 % 0.0-0.9 [facility] 0 % 0-5 [facility] 94 mL/min >60 [facility] 114 mL/min >60 [facility] 10.7 RATIO 10-20 [facility] 3.5 g/dL 2.2-4.2 [facility] 62 U/L 45-117 [facility] 21 U/L 13-56 [facility] 29.0 mmol/L 21.0-32.0 [facility] 0.62 uIU/mL 0.358-3.74 [facility] Platelets bldOrdered By: Dr. Moore on 02-15-2022 Platelets (Bld) [#/Vol] 175 10*3/uL 150-450 [facility] Protein Test strip Ql (U)Ord ered By: Dr. Guzman on 02-15-2022 Protein Ql (U) Negative Negative [facility] Serum or plasma albumin mg urement (mass/volume)Ordered By: Dr. Moore on 02-15-2022 Albumin [Mass/Vol] 3.8 g/dL 3.2-5.0 [facility] Serum or plasma albumin/glob ulin mass ratioOrdered By: Dr. Moore on 02-15-2022 Albumin/Globulin [Mass ratio] 1.1 {ratio} 0.9-2.4 [facility] Serum or plasma calcium mg urement (mass/volume)Ordered By: Dr. Moore on 02-15-2022 Calcium [Mass/Vol] 9.1 mg/dL 8.5-10.1 [facility] Serum or plasma creatinine m easurement (mass/volume)Ordered By: Dr. Moore on 02-15-2022 Creatinine [Mass/Vol] 0.75 mg/dL 0.55-1.02 [facility] Comment on above: The validity of the calculated GFR & GFRAA in patients over 70 years has not been determined. Clinical correlation is essential. Serum or plasma urea nitroge n measurement (mass/volume)Ordered By: Dr. Moore on 02-15-2022 Urea nitrogen [Mass/Vol] 8 mg/dL 7-18 [facility] Squamous epithelial cells de tection in urine sediment by light microscopyOrdered By: Dr. Guzman on 02-15-2022 Epithelial cells.squamous LM Ql (Urine sed) 5-10 SEEN /hpf 5-10 [facility] Thin prep Papanicolaou smear with manual screeningOrdered By: Dr. Moore on 02-15-2022 Thin prep Papanicolaou smear with manual screening 11 U/L 15-37 [facility] Thin prep Papanicolaou smear with manual screening 3 5-15 [facility] Urine blood detectionOrdered By: Dr. Guzman on 02-15-2022 RBC Ql (U) Negative Negative [facility] RBC Ql (U) 0 SEEN /hpf 0-5 [facility] Urine clarityOrdered By: Dr. Guzman on 02-15-2022 Clarity (U) Sl. Cloudy Clear [facility] Urine color determinationOrd ered By: Dr. Guzman on 02-15-2022 Color (U) Yellow Yellow [facility] Urine glucose detectionOrder ed By: Dr. Guzman on 02-15-2022 Glucose Ql (U) Normal mg/dl Normal [facility] Urine leukocyte esterase det ection by dipstickOrdered By: Dr. Guzman on 02-15-2022 Leukocyte esterase Test strip Ql (U) 25 /ul Negative [facility] Urine pHOrdered By: Dr. Guzman o n 02-15-2022 pH (U) 6.0 [pH] 5.0 - 8.0 [facility] Urine sediment bacteria coun t by microscopy (number/high power field)Ordered By: Dr. Guzman on 02-15-2022 Bacteria LM.HPF (Urine sed) [#/Area] 1 /[HPF] None Seen [facility] Urine specific gravity measu rementOrdered By: Dr. Guzman on 02-15-2022 Specific gravity (U) [Rel density] 1.015 1.002-1.030 [facility] Urobilinogen Auto test strip Ql (U)Ordered By: Dr. Guzman on 02-15-2022 Urobilinogen Ql (U) Normal mg/dl Normal [facility] Whole blood hemoglobin A1c/t otal hemoglobin ratio (mass fraction)Ordered By: Dr. Moore on 02-15-2022 HbA1c (Bld) [Mass fraction] 5.5 % 3.8-5.6 [facility] Comment on above: Normal < 5.7 % Predi abetic 5.7 - 6.4 % Diabetic >or= 6.5 % Please note range changes. Atypical perinuclear antineu trophil cytoplasmic antibodies measurementon 01-13-2022 Neutrophil cytoplasmic Ab.perinuclear.atypical IF (S) [Titer] <1:20 titer Neg:<1:20 [facility] Work Phone: Comment on above: The atypical pANCA p attern has been observed in asignificant percentage of patients with ulcerative colitis,primary sclerosing cholangitis and autoimmune hepatitis. Basophil percentageon 2021 Ammonia (P) [Moles/Vol] 15.0 umol/L 11-32 [facility] Work Phone: Basophil percentage < 0.2 AI 0.0-0.9 [facility] Work Phone: [phone] Cholesterol [Mass/Vol] 220 mg/dL <200 [facility] Work Phone: Comment on above: <200 mg/dL Desirable 200-240 mg/dL Borderline >240 mg/dL High Risk Triglyceride [Mass/Vol] 175 mg/dL <199 [facility] Work Phone: Comment on above: The drugs N-Acetylcy steine and Metamizole may falsely depress this assay.Serum Triglycerides Reference Interval Normal <150 mg/dL Borderline high 150 - 199 mg/dL High 200 - 499 mg/dL Very High > or = 500 mg/dL Erythrocyte sedimentation ra funmi 01-13-2022 ESR (Bld) [Velocity] 6 mm/h 0-30 [facility] Work Phone: HIV 1 and HIV-2 antibody ass ay with HIV-1 p24 antigen detectionon 01-13-2022 HIV 1+2 Ab+HIV1 p24 Ag IA Ql Non-Reactive Nonreactive [facility] Work Phone: INR in Blood by Coagulation assayon 01-13-2022 INR Coag (Bld) [Relative time] 1.0 {INR} [facility] Work Phone: Laboratory - Coagulationon 0 01-13-2022 PT Coag (PPP) [Time] 12.6 s 11.7-14.9 [facility] Work Phone: No Panel Informationon 01-13 Centromere B Antibody <0.2 AI 0.0-0.9 [facility] Work Phone: [phone] Ceruloplasmin 22.7 mg/dL 19.0-39.0 [facility] Work Phone: Haptoglobin 142 mg/dL 33-278 [facility] Work Phone: [phone] Comment on above: Performed at: [address] [id number] Director: Viraj Sandoval PhD, Phone: [phone] at: [facility] Lab[address] [id number] Director: Emily Bacon MD, Phone: [phone] Hepatitis A IgM Antibody Negative Negative [facility] Work Phone: [phone] Hepatitis B Core IgM Antibody Negative Negative [facility] Work Phone: [phone] Hepatitis C Antibody (EIA) <0.1 s/co ratio 0.0-0.9 [facility] Work Phone: Hepatitis C Antibody Comment Comment . [facility] Work Phone: Comment on above: NegativeNot infected with HCV, unless recent infection issuspected or other evidence exists to indicate HCVinfection. SUBSTANCE ABUSE PREVENTION COORDINATOR Antibody 0.3 AI 0.0-0.9 [facility] Work Phone: Thyroid Stimulating Hormone (TSH) 0.59 uIU/mL 0.358-3.74 [facility] Work Phone: [phone] Serum DNA double strand anti body assay (units/volume)on 01-13-2022 DNA double strand Ab Qn (S) 1 [IU]/mL 0-9 [facility] Work Phone: [phone] Comment on above: Negative <5 Equivoca l 5 - 9 Positive >9 Serum Alise-1 antibody assay (u nits/volume)on 01-13-2022 Alise-1 extractable nuclear Ab Qn (S) <0.2 AI 0.0-0.9 [facility] Work Phone: [phone] Serum Scl-70 extractable nuc lear antibody assay (units/volume)on 01-13-2022 SCL-70 extractable nuclear Ab Qn (S) <0.2 AI 0.0-0.9 [facility] Work Phone: Serum Freedman extractable nucl ear antibody detectionon 01-13-2022 Freedman extractable nuclear Ab Ql (S) <0.2 AI 0.0-0.9 [facility] Work Phone: Serum classic neutrophil cyt oplasmic antibody assay (units/volume)on 01-13-2022 Neutrophil cytoplasmic Ab.classic Qn (S) <1:20 titer Neg:<1:20 [facility] Work Phone: Serum mitochondria antibody detectionon 01-13-2022 Mitochondria Ab Ql (S) <20.0 Units 0.0-20.0 [facility] Work Phone: Comment on above: Negative 0.0 - 20.0 Equivocal 20.1 - 24.9 Positive >24.9Mitochondrial (M2) Antibodies are found in 90-96% ofpatients with primary biliary cirrhosis.Performed at: [employer] [place] [id number] Director: Viraj Sandoval PhD, Phone: [phone] Serum or plasma C reactive p rotein measurement (mass/volume)on 01-13-2022 CRP [Mass/Vol] mg/L 0.0-3.0 [facility] Work Phone: Comment on above: C-Reactive Protein ( CRP) provides useful information for thediagnosis, therapy and monitoring of inflammatory processesand associated diseases. For the evaluation of Relative Riskfor Cardiovascular Disease, a High Sensitivity CRP (HSCRP)should be ordered. Serum or plasma actin IgG an tibody assay (units/volume)on 01-13-2022 Actin IgG Qn 5 Units 0-19 [facility] Work Phone: Comment on above: Negative 0 - 19 Weak positive 20 - 30 Moderate to strong positive >30 Actin Antibodies are found in 52-85% of patients with autoimmune hepatitis or chronic active hepatitis and in 22% of patients with primary biliary cirrhosis. Serum or plasma bajzz-9-itup protein tumor marker measurement (units/volume)on 01-13-2022 AFP.tumor marker Qn 2.5 ng/mL 0.0-6.4 [facility] Work Phone: Comment on above: [employer] El ectrochemiluminescence Immunoassay(ECLIA)Values obtained with different assay methods or kits cannotbe used interchangeably. Results cannot be interpreted asabsolute evidence of the presence or absence of malignantdisease.This test is not interpretable in females. Serum or plasma angiotensin converting enzyme measurement (enzymatic activity/volume)on 01-13-2022 Angiotensin converting enzyme [Catalytic activity/Vol] 24 U/L 14-82 [facility] Work Phone: [phone] Serum or plasma cholesterol in HDL measurement (mass/volume)on 01-13-2022 Cholesterol in HDL [Mass/Vol] 42 mg/dL >40 [facility] Work Phone: [phone] Comment on above: The drugs N-Acetylcy steine and Metamizole may falsely depress this assay. Reference Range HDL <40 mg/dL Low HDL Cholesterol HDL >or= 60 mg/dL High HDL Cholesterol Serum or plasma cholesterol in VLDL measurement (mass/volume)on 01-13-2022 Cholesterol in VLDL [Mass/Vol] 35 mg/dL 5-40 [facility] Work Phone: [phone] Serum or plasma ferritin adriana surement (mass/volume)on 01-13-2022 Ferritin [Mass/Vol] 19 ng/mL 8-252 [facility] Work Phone: [phone] Serum or plasma hepatitis B virus surface antigen detection by immunoassayon 01-13-2022 HBV surface Ag IA Ql Negative Negative [facility] Work Phone: [phone] Serum or plasma low density lipoprotein (LDL) cholesterol measurement (mass/volume)on 01-13-2022 Cholesterol in LDL [Mass/Vol] 143 mg/dL 0-130 [facility] Work Phone: [phone] Serum perinuclear neutrophil cytoplasmic antibody titer by immunofluorescenceon 01-13-2022 Neutrophil cytoplasmic Ab.perinuclear IF (S) [Titer] <1:20 titer Neg:<1:20 [facility] Work Phone: Comment on above: The presence of posi tive fluorescence exhibiting P-ANCA orC-ANCA patterns alone is not specific for the diagnosis ofWegener's Granulomatosis (WG) or microscopic polyangiitis.Decisions about treatment should not be based solely onANCA IFA results. The [employer] ANCA Group Consensusrecommends follow up testing of positive sera with both SD-3 and MPO-ANCA enzyme immunoassays. As many as 5% serumsamples are positive only by EIA. Ref. AM J Clin Pehtam9091;111:507-513. Thin prep Papanicolaou smear with manual screeningon 01-13-2022 Thin prep Papanicolaou smear with manual screening 164 U/L 84-246 [facility] Work Phone: Thin prep Papanicolaou smear with manual screening 109 ug/dL 80-158 [facility] Work Phone: Comment on above: Detection Limit = 5 Whole blood hemoglobin A1c/t otal hemoglobin ratio (mass fraction)on 01-13-2022 HbA1c (Bld) [Mass fraction] 5.4 % 3.8-5.6 [facility] Work Phone: Comment on above: Normal < 5.7 % Predi abetic 5.7 - 6.4 % Diabetic >or= 6.5 % Please note range changes. No Panel Informationon 01-03 Stool Neutral Fats Normal . [facility] Work Phone: Comment on above: Normal (<60 Droplets /HPF) Stool Pancreatic Elastase > [address] >200 [facility] Work Phone: Comment on above: Result Units: ug Pooja st./g Severe Pancreatic Insufficiency: <100 Moderate Pancreatic Insufficiency: 100 - 200 Normal: >200Performed at: [employer] [address] [id number] Director: Emily Bacon MD, Phone: [phone] Qualitative fecal fat or lip idson 01-03-2022 Fat Ql (Stl) Normal . [facility] Work Phone: Comment on above: Normal (<100 Droplet s/HPF)Performed at: [employer] [address] [id number] Director: Viraj Sandoval PhD, Phone: [phone] Absolute lymphocyte counton 12-23-2021 Lymphocytes Auto (Unsp spec) [#/Vol] 2.19 10*3/uL 0.83-4.51 [facility] Work Phone: Basophil percentageon 2021 Basophils/100 WBC (Bld) 0.5 % 0-1 [facility] Work Phone: Bilirubin [Mass/Vol] 0.30 mg/dL 0.20-1.00 [facility] Work Phone: Comment on above: For patients on eltr ombopag therapy, use of Dimension [place] TBIL is not recommended. Chloride [Moles/Vol] 106 mmol/L 98-107 [facility] Work Phone: Eosinophils/100 WBC (Bld) 4.8 % 0-5 [facility] Work Phone: Glucose [Mass/Vol] 111 mg/dL 74-106 [facility] Work Phone: Comment on above: Fasting Glucose resu lt from 100 to 125 mg/dL suggests IMPAIRED HOMEOSTASIS per A.D.A. criteria. Neutrophils (Bld) [#/Vol] 3.0 10*3/uL 2.0-7.7 [facility] Work Phone: Neutrophils/100 WBC (Bld) 49.1 % 47-70 [facility] Work Phone: Potassium [Moles/Vol] 3.5 mmol/L 3.5-5.1 [facility] Work Phone: Protein [Mass/Vol] 7.5 g/dL 6.4-8.2 [facility] Work Phone: Sodium [Moles/Vol] 138 mmol/L 136-145 [facility] Work Phone: WBC (Bld) [#/Vol] 6.1 10*3/uL 4.4-11.0 [facility] Work Phone: Basophil percentage 0-5 SEEN /hpf 0-5 [facility] Work Phone: Beta hCG serum qualon 2021 Beta HCG ( test) Ql Negative [facility] Work Phone: Bilirubin Test strip Ql (U)o n 12-23-2021 Bilirubin Ql (U) Negative Negative [facility] Work Phone: Blood erythrocytes count (nu mber/volume)on 12-23-2021 RBC (Bld) [#/Vol] 4.87 10*6/uL 4.2-5.4 [facility] Work Phone: Blood hemoglobin measurement (mass/volume)on 12-23-2021 Hemoglobin (Bld) [Mass/Vol] 13.7 g/dL 12.0-15.0 [facility] Work Phone: Blood lymphocytes/100 leukoc yteson 12-23-2021 Lymphocytes/100 WBC (Bld) 36.1 % 19-41 [facility] Work Phone: Blood monocytes/100 leukocyt eson 12-23-2021 Monocytes/100 WBC (Bld) 9.2 % 0-10 [facility] Work Phone: Blood platelet mean volumeon 12-23-2021 Platelet mean volume (Bld) [Entitic vol] 11.1 fL 6.2-12.0 [facility] Work Phone: Determination of erythrocyte mean corpuscular volume (MCV)on 12-23-2021 MCV (RBC) [Entitic vol] 87.5 fL 81-99 [facility] Work Phone: Hematocrit Auto (Bld) [Volum e fraction]on 12-23-2021 Hematocrit (Bld) [Volume fraction] 42.6 % 37-47 [facility] Work Phone: Ketones Test strip Ql (U)on 12-23-2021 Ketones Ql (U) Negative Negative [facility] Work Phone: Laboratory - Chemistry and C hemistry - challengeon 12-23-2021 ALP [Catalytic activity/Vol] 54 U/L 45-117 [facility] Work Phone: ALT [Catalytic activity/Vol] 19 U/L 13-56 [facility] Work Phone: [phone] CO2 [Moles/Vol] 27.0 mmol/L 21.0-32.0 [facility] Work Phone: [phone] Globulin (S) [Mass/Vol] 3.6 g/dL 2.2-4.2 [facility] Work Phone: [phone] Lipase [Catalytic activity/Vol] 98 U/L 73-393 [facility] Work Phone: [phone]) Urea nitrogen/Creatinine [Mass ratio] 11.9 mg/mg 10-20 [facility] Work Phone: [phone] Laboratory - Hematology and Cell countson 12-23-2021 Erythrocyte distribution width (RBC) [Entitic vol] 42.2 fL 35.1-43.9 [facility] Work Phone: [phone] Erythrocyte distribution width (RBC) [Ratio] 13.3 % 11.6-14.6 [facility] Work Phone: [phone] Immature granulocytes/100 WBC (Bld) 0.300 % 0.0-0.9 [facility] Work Phone: [phone] Comment on above: IG% - Immature Granu locytes (promyelocytes, myelocytes and metamyelocytes) > 1% indicates that a LEFT SHIFT is Present. MCH (RBC) [Entitic mass] 28.1 pg 27.0-32.0 [facility] Work Phone: [phone] Nucleated RBC/100 WBC (Bld) [Ratio] 0 % 0-5 [facility] Work Phone: [phone] MCHC Auto (RBC) [Mass/Vol]on 12-23-2021 MCHC (RBC) [Mass/Vol] 32.2 g/dL 32-36 [facility] Work Phone: [phone] Mucus LM Ql (Urine sed)on Mucus Ql (Urine sed) 0 SEEN /hpf [facility] Work Phone: [phone] Nitrite Test strip Ql (U)on 12-23-2021 Nitrite Ql (U) Negative Negative [facility] Work Phone: [phone] Panel Informationon 12-23 Estimated Creatinine Clearance Calc 88.34 ml/min [facility] Work Phone: [phone] Estimated GFR (MDRD) Amer 100 mL/min >60 [facility] Work Phone: [phone] Comment on above: GFR Calc Estimated GFR (MDRD) Non-Af Amer 83 mL/min >60 [facility] Work Phone: [phone] Comment on above: Non- GFR Calc Platelets bldon 12-23-2021 Platelets (Bld) [#/Vol] 184 10*3/uL 150-450 [facility] Work Phone: [phone] Protein Test strip Ql (U)on 12-23-2021 Protein Ql (U) Negative Negative [facility] Work Phone: [phone] Serum or plasma albumin mg urement (mass/volume)on 12-23-2021 Albumin [Mass/Vol] 3.9 g/dL 3.2-5.0 [facility] Work Phone: [phone] Serum or plasma albumin/glob ulin mass ratioon 12-23-2021 Albumin/Globulin [Mass ratio] 1.1 {ratio} 0.9-2.4 [facility] Work Phone: [phone] Serum or plasma calcium mg urement (mass/volume)on 12-23-2021 Calcium [Mass/Vol] 9.2 mg/dL 8.5-10.1 [facility] Work Phone: [phone] Serum or plasma creatinine m easurement (mass/volume)on 12-23-2021 Creatinine [Mass/Vol] 0.84 mg/dL 0.55-1.02 [facility] Work Phone: [phone] Comment on above: The validity of the calculated GFR & GFRAA in patients over 70 years has not been determined. Clinical correlation is essential. Serum or plasma urea nitroge n measurement (mass/volume)on 12-23-2021 Urea nitrogen [Mass/Vol] 10 mg/dL 7-18 [facility] Work Phone: [phone] Squamous epithelial cells de tection in urine sediment by light microscopyon 12-23-2021 Epithelial cells.squamous LM Ql (Urine sed) 0-5 SEEN /hpf 5-10 [facility] Work Phone: Thin prep Papanicolaou smear with manual screeningon 12-23-2021 Thin prep Papanicolaou smear with manual screening 11 U/L 15-37 [facility] Work Phone: Thin prep Papanicolaou smear with manual screening 5 5-15 [facility] Work Phone: Urine blood detectionon 08-0 RBC Ql (U) Negative Negative [facility] Work Phone: RBC Ql (U) 0-5 SEEN /hpf 0-5 [facility] Work Phone: Urine clarityon 12-23-2021 Clarity (U) Clear Clear [facility] Work Phone: Urine color determinationon 12-23-2021 Color (U) Yellow Yellow [facility] Work Phone: Urine glucose detectionon Glucose Ql (U) Normal mg/dl Normal [facility] Work Phone: Urine leukocyte esterase det ection by dipstickon 12-23-2021 Leukocyte esterase Test strip Ql (U) Negative Negative [facility] Work Phone: Urine pHon 12-23-2021 pH (U) 6.0 [pH] 5.0 - 8.0 [facility] Work Phone: Urine sediment bacteria coun t by microscopy (number/high power field)on 12-23-2021 Bacteria LM.HPF (Urine sed) [#/Area] 1 /[HPF] None Seen [facility] Work Phone: Urine specific gravity measu rementon 12-23-2021 Specific gravity (U) [Rel density] 1.020 1.002-1.030 [facility] Work Phone: Urobilinogen Auto test strip Ql (U)on 12-23-2021 Urobilinogen Ql (U) Normal mg/dl Normal [facility] Work Phone: Absolute lymphocyte counton 11-27-2021 Lymphocytes Auto (Unsp spec) [#/Vol] 1.49 10*3/uL 0.83-4.51 [facility] Work Phone: Basophil percentageon 2021 Basophils/100 WBC (Bld) 0.3 % 0-1 [facility] Work Phone: Chloride [Moles/Vol] 105 mmol/L 98-[facility]: Eosinophils/100 WBC (Bld) 2.8 % 0-5 [facility] Work Phone: Glucose [Mass/Vol] 120 mg/dL 74-106 [facility] Work Phone: Comment on above: Fasting Glucose resu lt from 100 to 125 mg/dL suggests IMPAIRED HOMEOSTASIS per A.D.A. criteria. Neutrophils (Bld) [#/Vol] 3.5 10*3/uL 2.0-7.7 [facility] Work Phone: Neutrophils/100 WBC (Bld) 60.9 % 47-70 [facility] Work Phone: Potassium [Moles/Vol] 4.4 mmol/L 3.5-5.1 [facility] Work Phone: Comment on above: Moderate Hemolysis, Result may be falsely increased. Sodium [Moles/Vol] 138 mmol/L 136-145 [facility] Work Phone: WBC (Bld) [#/Vol] 5.8 10*3/uL 4.4-11.0 [facility] Work Phone: Blood erythrocytes count (nu mber/volume)on 11-27-2021 RBC (Bld) [#/Vol] 4.59 10*6/uL 4.2-5.4 [facility] Work Phone: Blood hemoglobin measurement (mass/volume)on 11-27-2021 Hemoglobin (Bld) [Mass/Vol] 12.8 g/dL 12.0-15.0 [facility] Work Phone: Blood lymphocytes/100 leukoc yteson 11-27-2021 Lymphocytes/100 WBC (Bld) 25.8 % 19-41 [facility] Work Phone: Blood monocytes/100 leukocyt eson 11-27-2021 Monocytes/100 WBC (Bld) 9.9 % 0-10 [facility] Work Phone: Blood platelet mean volumeon 11-27-2021 Platelet mean volume (Bld) [Entitic vol] 11.4 fL 6.2-12.0 [facility] Work Phone: Determination of erythrocyte mean corpuscular volume (MCV)on 11-27-2021 MCV (RBC) [Entitic vol] 86.9 fL 81-99 [facility] Work Phone: Hematocrit Auto (Bld) [Volum e fraction]on 11-27-2021 Hematocrit (Bld) [Volume fraction] 39.9 % 37-47 [facility] Work Phone: Laboratory - Chemistry and C hemistry - challengeon 11-27-2021 CO2 [Moles/Vol] 30.0 mmol/L 21.0-32.0 [facility] Work Phone: Magnesium [Mass/Vol] 1.9 mg/dL 1.6-2.6 [facility] Work Phone: Comment on above: Moderate Hemolysis, Result may be falsely increased. Urea nitrogen/Creatinine [Mass ratio] 9.8 mg/mg 10-20 [facility] Work Phone: Laboratory - Hematology and Cell countson 11-27-2021 Erythrocyte distribution width (RBC) [Entitic vol] 41.5 fL 35.1-43.9 [facility] Work Phone: Erythrocyte distribution width (RBC) [Ratio] 13.2 % 11.6-14.6 [facility] Work Phone: Immature granulocytes/100 WBC (Bld) 0.300 % 0.0-0.9 [facility] Work Phone: [phone] Comment on above: IG% - Immature Granu locytes (promyelocytes, myelocytes and metamyelocytes) > 1% indicates that a LEFT SHIFT is Present. MCH (RBC) [Entitic mass] 27.9 pg 27.0-32.0 [facility] Work Phone: Nucleated RBC/100 WBC (Bld) [Ratio] 0 % 0-5 [facility] Work Phone: [phone] MCHC Auto (RBC) [Mass/Vol]on 11-27-2021 MCHC (RBC) [Mass/Vol] 32.1 g/dL 32-36 [facility] Work Phone: No Panel Informationon 11-27 Estimated Creatinine Clearance Calc 90.50 ml/min [facility] Work Phone: [phone] Estimated GFR (MDRD) Amer 102 mL/min >60 [facility] Work Phone: [phone] Comment on above: GFR Calc Estimated GFR (MDRD) Non-Af Amer 85 mL/min >60 [facility] Work Phone: [phone] Comment on above: Non- GFR Calc Thyroid Stimulating Hormone (TSH) 4.97 uIU/mL 0.358-3.74 [facility] Work Phone: Platelets bldon 11-27-2021 Platelets (Bld) [#/Vol] 168 10*3/uL 150-450 [facility] Work Phone: [phone] Serum or plasma calcium mg urement (mass/volume)on 11-27-2021 Calcium [Mass/Vol] 8.9 mg/dL 8.5-10.1 [facility] Work Phone: [phone] Serum or plasma creatinine m easurement (mass/volume)on 11-27-2021 Creatinine [Mass/Vol] 0.82 mg/dL 0.55-1.02 [facility] Work Phone: [phone] Comment on above: The validity of the calculated GFR & GFRAA in patients over 70 years has not been determined. Clinical correlation is essential. Serum or plasma urea nitroge n measurement (mass/volume)on 11-27-2021 Urea nitrogen [Mass/Vol] 8 mg/dL 7-18 [facility] Work Phone: Thin prep Papanicolaou smear with manual screeningon 11-27-2021 Thin prep Papanicolaou smear with manual screening 3 5-15 [facility] Work Phone: Absolute lymphocyte counton 08-20-2021 Lymphocytes Auto (Unsp spec) [#/Vol] 1.34 10*3/uL 0.83-4.51 [facility] Work Phone: Basophil percentageon 2021 Basophil percentage 0 SEEN /hpf 0-5 [facility] Work Phone: Basophils/100 WBC (Bld) 0.8 % 0-1 [facility] Work Phone: Bilirubin [Mass/Vol] 0.30 mg/dL 0.20-1.00 [facility] Work Phone: Comment on above: For patients on eltr ombopag therapy, use of Dimension [place] TBIL is not recommended. Chloride [Moles/Vol] 107 mmol/L 98-107 [facility] Work Phone: Eosinophils/100 WBC (Bld) 2.8 % 0-5 [facility] Work Phone: Glucose [Mass/Vol] 87 mg/dL 74-106 [facility] Work Phone: Neutrophils (Bld) [#/Vol] 3.0 10*3/uL 2.0-7.7 [facility] Work Phone: Neutrophils/100 WBC (Bld) 59.5 % 47-70 [facility] Work Phone: Potassium [Moles/Vol] 3.8 mmol/L 3.5-5.1 [facility] Work Phone: Protein [Mass/Vol] 7.9 g/dL 6.4-8.2 [facility] Work Phone: Sodium [Moles/Vol] 137 mmol/L 136-145 [facility] Work Phone: WBC (Bld) [#/Vol] 5.0 10*3/uL 4.4-11.0 [facility] Work Phone: Beta hCG serum qualon 2021 Beta HCG ( test) Ql Negative [facility] Work Phone: Bilirubin Test strip Ql (U)o n 08-20-2021 Bilirubin Ql (U) Negative Negative [facility] Work Phone: Blood erythrocytes count (nu mber/volume)on 08-20-2021 RBC (Bld) [#/Vol] 5.32 10*6/uL 4.2-5.4 [facility] Work Phone: Blood hemoglobin measurement (mass/volume)on 08-20-2021 Hemoglobin (Bld) [Mass/Vol] 14.6 g/dL 12.0-15.0 [facility] Work Phone: Blood lymphocytes/100 leukoc yteson 08-20-2021 Lymphocytes/100 WBC (Bld) 27.0 % 19-41 [facility] Work Phone: Blood monocytes/100 leukocyt eson 08-20-2021 Monocytes/100 WBC (Bld) 9.7 % 0-10 [facility] Work Phone: Blood platelet mean volumeon 08-20-2021 Platelet mean volume (Bld) [Entitic vol] 11.4 fL 6.2-12.0 [facility] Work Phone: Determination of erythrocyte mean corpuscular volume (MCV)on 08-20-2021 MCV (RBC) [Entitic vol] 84.2 fL 81-99 [facility] Work Phone: Hematocrit Auto (Bld) [Volum e fraction]on 08-20-2021 Hematocrit (Bld) [Volume fraction] 44.8 % 37-47 [facility] Work Phone: Ketones Test strip Ql (U)on 08-20-2021 Ketones Ql (U) Negative Negative [facility] Work Phone: [phone] Laboratory - Chemistry and C hemistry - challengeon 08-20-2021 ALP [Catalytic activity/Vol] 65 U/L 45-117 [facility] Work Phone: [phone] ALT [Catalytic activity/Vol] 30 U/L 13-56 [facility] Work Phone: [phone] CO2 [Moles/Vol] 26.0 mmol/L 21.0-32.0 [facility] Work Phone: [phone] Globulin (S) [Mass/Vol] 3.8 g/dL 2.2-4.2 [facility] Work Phone: [phone] Lipase [Catalytic activity/Vol] 119 U/L 73-393 [facility] Work Phone: [phone] Urea nitrogen/Creatinine [Mass ratio] 7.6 mg/mg 10-20 [facility] Work Phone: [phone] Laboratory - Hematology and Cell countson 08-20-2021 Erythrocyte distribution width (RBC) [Entitic vol] 41.4 fL 35.1-43.9 [facility] Work Phone: [phone] Erythrocyte distribution width (RBC) [Ratio] 13.5 % 11.6-14.6 [facility] Work Phone: [phone] Immature granulocytes/100 WBC (Bld) 0.200 % 0.0-0.9 [facility] Work Phone: [phone] Comment on above: IG% - Immature Granu locytes (promyelocytes, myelocytes and metamyelocytes) > 1% indicates that a LEFT SHIFT is Present. MCH (RBC) [Entitic mass] 27.4 pg 27.0-32.0 [facility] Work Phone: [phone] Nucleated RBC/100 WBC (Bld) [Ratio] 0 % 0-5 [facility] Work Phone: [phone] MCHC Auto (RBC) [Mass/Vol]on 08-20-2021 MCHC (RBC) [Mass/Vol] 32.6 g/dL 32-36 [facility] Work Phone: Mucus LM Ql (Urine sed)on Mucus Ql (Urine sed) 0 SEEN /hpf [facility] Work Phone: [phone] Nitrite Test strip Ql (U)on 08-20-2021 Nitrite Ql (U) Negative Negative [facility] Work Phone: No Panel Informationon 08-20 Estimated Creatinine Clearance Calc 93.93 ml/min [facility] Work Phone: [phone] Estimated GFR (MDRD) Amer 106 mL/min >60 [facility] Work Phone: [phone] Comment on above: GFR Calc Estimated GFR (MDRD) Non-Af Amer 88 mL/min >60 [facility] Work Phone: [phone] Comment on above: Non- GFR Calc Platelets bldon 08-20-2021 Platelets (Bld) [#/Vol] 183 10*3/uL 150-450 [facility] Work Phone: [phone] Protein Test strip Ql (U)on 08-20-2021 Protein Ql (U) Negative Negative [facility] Work Phone: [phone] Serum or plasma albumin mg urement (mass/volume)on 08-20-2021 Albumin [Mass/Vol] 4.1 g/dL 3.2-5.0 [facility] Work Phone: [phone] Serum or plasma albumin/glob ulin mass ratioon 08-20-2021 Albumin/Globulin [Mass ratio] 1.1 {ratio} 0.9-2.4 [facility] Work Phone: [phone] Serum or plasma calcium mg urement (mass/volume)on 08-20-2021 Calcium [Mass/Vol] 9.2 mg/dL 8.5-10.1 [facility] Work Phone: [phone] Serum or plasma creatinine m easurement (mass/volume)on 08-20-2021 Creatinine [Mass/Vol] 0.79 mg/dL 0.55-1.02 [facility] Work Phone: [phone] Comment on above: The validity of the calculated GFR & GFRAA in patients over 70 years has not been determined. Clinical correlation is essential. Serum or plasma urea nitroge n measurement (mass/volume)on 08-20-2021 Urea nitrogen [Mass/Vol] 6 mg/dL 7-18 [facility] Work Phone: Squamous epithelial cells de tection in urine sediment by light microscopyon 08-20-2021 Epithelial cells.squamous LM Ql (Urine sed) 5-10 SEEN /hpf 5-10 [facility] Work Phone: Thin prep Papanicolaou smear with manual screeningon 08-20-2021 Thin prep Papanicolaou smear with manual screening 14 U/L 15-37 [facility] Work Phone: [phone] Thin prep Papanicolaou smear with manual screening 4 5-15 [facility] Work Phone: Urine blood detectionon 04-0 RBC Ql (U) Negative Negative [facility] Work Phone: RBC Ql (U) 0 SEEN /hpf 0-5 [facility] Work Phone: Urine clarityon 08-20-2021 Clarity (U) Clear Clear [facility] Work Phone: Urine color determinationon 08-20-2021 Color (U) Yellow Yellow [facility] Work Phone: Urine glucose detectionon Glucose Ql (U) Normal mg/dl Normal [facility] Work Phone: [phone] Urine leukocyte esterase det ection by dipstickon 08-20-2021 Leukocyte esterase Test strip Ql (U) Negative Negative [facility] Work Phone: Urine pHon 08-20-2021 pH (U) 6.0 [pH] 5.0 - 8.0 [facility] Work Phone: [phone] Urine sediment bacteria coun t by microscopy (number/high power field)on 08-20-2021 Bacteria LM.HPF (Urine sed) [#/Area] 0 /[HPF] None Seen [facility] Work Phone: Urine specific gravity measu rementon 08-20-2021 Specific gravity (U) [Rel density] 1.015 1.002-1.030 [facility] Work Phone: Urobilinogen Auto test strip Ql (U)on 08-20-2021 Urobilinogen Ql (U) Normal mg/dl Normal [facility] Work Phone: No Panel Informationon 08-11 Thyroid Stimulating Hormone (TSH) 2.44 uIU/mL 0.358-3.74 [facility] Work Phone: Absolute lymphocyte counton 06-08-2021 Lymphocytes Auto (Unsp spec) [#/Vol] 1.22 10*3/uL 0.83-4.51 [facility] Work Phone: Basophil percentageon 2021 Basophils/100 WBC (Bld) 0.6 % 0-1 [facility] Work Phone: Bilirubin [Mass/Vol] 0.40 mg/dL 0.20-1.00 [facility] Work Phone: Comment on above: For patients on eltr ombopag therapy, use of Dimension [place] TBIL is not recommended. Chloride [Moles/Vol] 103 mmol/L 98-107 [facility] Work Phone: Eosinophils/100 WBC (Bld) 3.3 % 0-5 [facility] Work Phone: Glucose [Mass/Vol] 102 mg/dL 74-106 [facility] Work Phone: Comment on above: Fasting Glucose resu lt from 100 to 125 mg/dL suggests IMPAIRED HOMEOSTASIS per A.D.A. criteria. Neutrophils (Bld) [#/Vol] 3.0 10*3/uL 2.0-7.7 [facility] Work Phone: Neutrophils/100 WBC (Bld) 62.1 % 47-70 [facility] Work Phone: Potassium [Moles/Vol] 3.9 mmol/L 3.5-5.1 [facility] Work Phone: Protein [Mass/Vol] 7.3 g/dL 6.4-8.2 [facility] Work Phone: [phone] Sodium [Moles/Vol] 139 mmol/L 136-145 [facility] Work Phone: [phone] WBC (Bld) [#/Vol] 4.9 10*3/uL 4.4-11.0 [facility] Work Phone: [phone] Blood erythrocytes count (nu mber/volume)on 06-08-2021 RBC (Bld) [#/Vol] 5.20 10*6/uL 4.2-5.4 [facility] Work [facility]: [phone] Blood hemoglobin measurement (mass/volume)on 06-08-2021 Hemoglobin (Bld) [Mass/Vol] 14.3 g/dL 12.0-15.0 [facility] Work Phone: [phone] Blood lymphocytes/100 leukoc yteson 06-08-2021 Lymphocytes/100 WBC (Bld) 25.0 % 19-41 [facility] Work Phone: [phone] Blood monocytes/100 leukocyt eson 06-08-2021 Monocytes/100 WBC (Bld) 8.6 % 0-10 [facility] Work Phone: Blood platelet mean volumeon 06-08-2021 Platelet mean volume (Bld) [Entitic vol] 11.4 fL 6.2-12.0 [facility] Work Phone: [phone] Determination of erythrocyte mean corpuscular volume (MCV)on 06-08-2021 MCV (RBC) [Entitic vol] 84.0 fL 81-99 [facility] Work Phone: [phone] Hematocrit Auto (Bld) [Volum e fraction]on 06-08-2021 Hematocrit (Bld) [Volume fraction] 43.7 % 37-47 [facility] Work Phone: Laboratory - Chemistry and C hemistry - challengeon 06-08-2021 ALP [Catalytic activity/Vol] 65 U/L 45-117 [facility] Work Phone: [phone] ALT [Catalytic activity/Vol] 51 U/L 13-56 [facility] Work Phone: [phone] CO2 [Moles/Vol] 30.0 mmol/L 21.0-32.0 [facility] Work Phone: [phone] Globulin (S) [Mass/Vol] 3.7 g/dL 2.2-4.2 [facility] Work Phone: [phone] Urea nitrogen/Creatinine [Mass ratio] 12.5 mg/mg 10-20 [facility] Work Phone: [phone] Laboratory - Hematology and Cell countson 06-08-2021 Erythrocyte distribution width (RBC) [Entitic vol] 40.0 fL 35.1-43.9 [facility] Work Phone: [phone] Erythrocyte distribution width (RBC) [Ratio] 13.0 % 11.6-14.6 [facility] Work Phone: [phone] Immature granulocytes/100 WBC (Bld) 0.400 % 0.0-0.9 [facility] Work Phone: [phone] Comment on above: IG% - Immature Granu locytes (promyelocytes, myelocytes and metamyelocytes) > 1% indicates that a LEFT SHIFT is Present. MCH (RBC) [Entitic mass] 27.5 pg 27.0-32.0 [facility] Work Phone: [phone] Nucleated RBC/100 WBC (Bld) [Ratio] 0 % 0-5 [facility] Work Phone: [phone] MCHC Auto (RBC) [Mass/Vol]on 06-08-2021 MCHC (RBC) [Mass/Vol] 32.7 g/dL 32-36 [facility] Work Phone: [phone] Panel Informationon 06-08 Thyroid Stimulating Hormone (TSH) 0.30 uIU/mL 0.358-3.74 [facility] Work Phone: [phone] Estimated GFR (MDRD) Amer 119 mL/min >60 [facility] Work Phone: [phone] Comment on above: GFR Calc Estimated GFR (MDRD) Non-Af Amer 99 mL/min >60 [facility] Work Phone: Comment on above: Non- GFR Calc Vitamin D 25-Hydroxy 16.2 ng/mL [facility] Work Phone: Comment on above: Vitamin D 25(OH) Sta tus Range Deficiency <20 ng/mL (50nmol/L) Insufficiency 20 - 30 ng/mL (50 - 75 nmol/L) Sufficiency 30 - 100 ng/mL (75 - 250 nmol/L) Toxicity >100 ng/mL (>250 nmol/L) Platelets bldon 06-08-2021 Platelets (Bld) [#/Vol] 178 10*3/uL 150-450 [facility] Work Phone: Serum or plasma albumin mg urement (mass/volume)on 06-08-2021 Albumin [Mass/Vol] 3.6 g/dL 3.2-5.0 [facility] Work Phone: Serum or plasma albumin/glob ulin mass ratioon 06-08-2021 Albumin/Globulin [Mass ratio] 1.0 {ratio} 0.9-2.4 [facility] Work Phone: Serum or plasma calcium mg urement (mass/volume)on 06-08-2021 Calcium [Mass/Vol] 8.7 mg/dL 8.5-10.1 [facility] Work Phone: Serum or plasma creatinine m easurement (mass/volume)on 06-08-2021 Creatinine [Mass/Vol] 0.72 mg/dL 0.55-1.02 [facility] Work Phone: Comment on above: The validity of the calculated GFR & GFRAA in patients over 70 years has not been determined. Clinical correlation is essential. Serum or plasma urea nitroge n measurement (mass/volume)on 06-08-2021 Urea nitrogen [Mass/Vol] 9 mg/dL 12-06 [facility] Work Phone: [phone] Thin prep Papanicolaou smear with manual screeningon 01-18-2022 Thin prep Papanicolaou smear with manual screening 25 U/L 15-37 [facility] Work Phone: Thin prep Papanicolaou smear with manual screening 6 5-15 [facility] Work Phone: SARS coronavirus RNA [Presen ce] in Unspecified specimen by JONE with probe detectionon 05-24-2021 SARS-CoV RNA JONE+probe Ql (Unsp spec) Not detected Not Detected [facility] Work Phone: Comment on above: This [...] of in vitro diagnostic tests for detection [id number] virus and/or diagnosis of COVID-19 infectionunder section [...] 12-31-2020 IMPRESSION: No acute osseous abnormality identified. [facility] [employer]: [facility] Transcribe Date/Time: Dec 31 2020 1:18P Dictated by : ADE MELÉNDEZ MD This examination was interpreted and the report reviewed and electronically signed by: ADE MELÉNDEZ MD on Dec 31 2020 1:20PM [facility] DIVISION OF RADIOLOGY * * *Final [...] tissue abnormality identified. DIVISION OF RADIOLOGY Provider, [facility] - 12/31/2020 * * *Final [...] IMPRESSION IMPRESSION: No acute osseous abnormality identified. [facility] [employer]: [facility] Transcribe Date/Time: Dec 31 2020 1:18P Dictated by : ADE MELÉNDEZ MD This examination was interpreted and the report reviewed and electronically signed by: ADE MELÉNDEZ MD on Dec 31 2020 1:20PM EST [facility] Radiology Study observation (narrative) [facility] XR Shoulder - left 3 ViewsOr dered By: Ccf Provider on 12-31-2020 [facility] XR Chest PA and Lateralon IMPRESSION: No acute radiographic abnormality. [facility] [employer]: [facility] Transcribe Date/Time: Jun 25 2020 3:58P Dictated [...] soft tissues: Unremarkable. DIVISION OF RADIOLOGY Provider, [facility] - 06/25/2020 * * *Final [...] Unremarkable. IMPRESSION IMPRESSION: No acute radiographic abnormality. [facility] [employer]: [facility] Transcribe Date/Time: Jun 25 2020 3:58P Dictated by : JOSHUA CLARK MD This examination was interpreted and the report reviewed and electronically signed by: JOSHUA CLARK MD on Jun 25 2020 3:59PM [facility] Radiology Study observation (narrative) [facility] XR Chest PA and LateralOrder ed By: Cc Provider on 06-25-2020 [facility] Office Visit: OB Routineon 1 06-19-2016 Documentation of current medications (procedure) Done Invalid Interpretation Code [facility] Urine, glucose presence N Invalid Interpretation Code [facility] Urine, protein N Invalid Interpretation Code [facility] Office Visit: OB Routineon 1 06-10-2016 Documentation of current medications (procedure) Done Invalid Interpretation Code [facility] Urine, glucose presence N Invalid Interpretation Code [facility] Urine, protein N Invalid Interpretation Code [facility] Office Visit: OB Routineon 1 Albumin Ql (U) N Invalid Interpretation Code [facility] Documentation of current medications (procedure) Done Invalid Interpretation Code [facility] Glucose Test strip mass conc (U) N Invalid Interpretation Code [facility] Protein mass conc Done Invalid Interpretation Code [facility] Tobacco smoking status [facility] Never Invalid Interpretation Code [facility] Tobacco smoking status [facility] Tobacco smoking status NHIS Invalid Interpretation Code [facility] Tobacco smoking status [facility] Current every day smoker Invalid Interpretation Code [facility] Tobacco use [facility] Current every day smoker Invalid Interpretation Code [facility] Urine, glucose presence N Invalid Interpretation Code [facility] Urine, protein N Invalid Interpretation Code [facility] 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-2017 Management Instructor 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 Interface Message Text Patient rescheduled due to illness Normal [facility] Office Visit: OB Routineon 0 02-17-2017 Albumin Ql (U) N Invalid Interpretation Code [facility] Documentation of current medications (procedure) Done Invalid Interpretation Code [facility] Glucose Test strip mass conc (U) N Invalid Interpretation Code [facility] Protein mass conc Done Invalid Interpretation Code [facility] Urine, glucose presence N Invalid Interpretation Code [facility] Urine, protein N Invalid Interpretation Code [facility] Lab Report: HIV Screen 4TH G EN W/Confirmon 02-10-2017 GE use only - for [employer] import when terms are not otherwise specified . Invalid Interpretation Code Non Reactive [facility] Lab Report: Hepatitis B Surf dakot[place] Agon 02-10-2017 BSA (Body Surface Area) . Invalid Interpretation Code Negative [facility] Lab Report: Rapid Plasmin Re agin (RPR)on 02-10-2017 Reagin antibody presence . Invalid Interpretation Code NONREACTIVE [facility] Lab Report: Rubella IgGon rubella virus antibody, IgG 192.8 [iU]/mL Invalid Interpretation Code [facility] [place] [facility] Replaced Document: HIV Scree n 4TH GEN W/Confirmon 02-10-2017 HIV1/0/2 SCREEN . Invalid Interpretation Code Non Reactive [facility] Replaced Document: Hepatitis B Surface Agon 02-10-2017 HBV surface Ag Ql (S) . Invalid Interpretation Code Negative [facility] Replaced Document: Rapid Jeremy smin Reagin (RPR)on 02-10-2017 Reagin Ab VDRL Qn (S) . Invalid Interpretation Code NONREACTIVE [facility] Replaced Document: Rubella I gGon 02-10-2017 Rubella IgG 192.8 [iU]/mL Invalid Interpretation Code [facility] Lab Report: CBC W/Diff, Auto matedon 02-09-2017 Basophils/100 WBC Auto (Bld) 0.2 % Invalid Interpretation Code 0-1 [facility] Eosinophils/100 leukocytes 3.2 % Invalid Interpretation Code 0-5 [facility] Erythrocyte distribution width Auto Ratio (RBC) 13.6 % Invalid Interpretation Code 11.6-14.6 [facility] Erythrocytes (RBC) 4.64 10*6/uL Invalid Interpretation Code 4.2-5.4 [facility] Hematocrit (HCT) 40.0 % Invalid Interpretation Code 37-47 [facility] Hemoglobin mass conc (Bld) 13.0 g/dL Invalid Interpretation Code 12.0-15.0 [facility] immature granulocytes, percentage of total cells, blood 0.200 % Invalid Interpretation Code 0.0-0.9 [facility] Lymphocytes 1.29 X10 3/UL Invalid Interpretation Code 0.83-4.51 [facility] Lymphocytes/100 leukocytes 25.7 % Invalid Interpretation Code 19-41 [facility] MCH 28.0 pg Invalid Interpretation Code 27.0-32.0 [facility] MCHC mass conc (RBC) 32.5 G/GL Invalid Interpretation Code 32-36 [facility] MCV 86.2 fL Invalid Interpretation Code 81-99 [facility] Monocytes/100 leukocytes 5.8 % Invalid Interpretation Code 0-10 [facility] neutrophil count, blood 3.3 X10 3/UL Invalid Interpretation Code 2.0-7.7 [facility] Neutrophils/100 WBC Auto (Bld) 64.9 % Invalid Interpretation Code 47-70 [facility] Platelets 171 10*3/mm3 Invalid Interpretation Code 150-450 [facility] PMV by Cordell 11.0 fL Invalid Interpretation Code 6.2-12.0 [facility] red blood cell distribution width, size density 42.8 fL Invalid Interpretation Code 35.1-43.9 [facility] WBC (Leukocytes) 5.0 10*3/uL Invalid Interpretation Code 4.4-11.0 [facility] Lab Report: Hemoglobin A1con 02-09-2017 Hemoglobin A1c/Hemoglobin.total mass fraction (Bld) 5.5 % Invalid Interpretation Code 4.2-6.3 [facility] Lab Report: T4 Total, Thyrox inon 02-09-2017 Thyroxine (T4) 11.4 ug/dL Invalid Interpretation Code 4.8-13.9 [facility] Lab Report: Thyroid Stim Hor kendrick (TSH)on 02-09-2017 Thyroid stimulating hormone (TSH) 6.03 u[iU]/mL High 0.358-3.74 [facility] Office Visit: OB Routineon 0 02-09-2017 Documentation of current medications (procedure) Done Invalid Interpretation Code [facility] Replaced Document: CBC W/Dif f, Automatedon 02-09-2017 Absolute Neut 3.3 X10 3/UL Invalid Interpretation Code 2.0-7.7 [facility] Basophils/100 WBC (Bld) 0.2 % 0-1 [facility] Eosinophils/100 WBC (Bld) 3.2 % 0-5 [facility] Erythrocyte distribution width Auto Ratio (RBC) 42.8 fL Invalid Interpretation Code 35.1-43.9 [facility] Work Phone: Erythrocyte distribution width Ratio (RBC) 42.8 fL 35.1-43.9 [facility] Erythrocyte distribution width Ratio (RBC) 13.6 % 11.6-14.6 [facility] Hematocrit Volume Fraction (Bld) 40.0 % 37-47 [facility] Immature granulocytes #/vol (Bld) 0.200 % Invalid Interpretation Code 0.0-0.9 [facility] [place] [facility] Immature granulocytes/100 WBC (Bld) 0.200 % Invalid Interpretation Code 0.0-0.9 [facility] Lymphocytes #/vol (Bld) 1.29 X10 3/UL 0.83-4.51 [facility] Lymphocytes/100 WBC (Bld) 25.7 % 19-41 [facility] MCH Entitic mass (RBC) 28.0 pg 27.0-32.0 Bl [facility] MCHC mass conc (RBC) 32.5 G/GL 32-36 Bloo [facility] MCV Entitic volume (RBC) 86.2 fL 81-99 [facility] Monocytes/100 WBC (Bld) 5.8 % 0-10 [facility] Neutrophils #/vol (Bld) 3.3 X10 3/UL 2.0-7.7 [facility] Neutrophils Auto #/vol (Bld) 3.3 X10 3/UL Invalid Interpretation Code 2.0-7.7 [facility] Work Phone: Neutrophils/100 WBC (Bld) 64.9 % 47-70 [facility] Platelet mean volume Entitic volume (Bld) 11.0 fL 6.2-12.0 [facility] Platelets #/vol (Bld) 171 10*3/mm3 150-450 [facility] RBC #/vol (Bld) 4.64 10*6/uL 4.2-5.4 [facility] [place] [facility] RDW SD 42.8 fL Invalid Interpretation Code 35.1-43.9 [facility] WBC #/vol (Bld) 5.0 10*3/uL 4.4-11.0 [facility] [place] [facility] Microbiology: Noe Santiago [facility] 01-20-2017 CUV . Invalid Interpretation Code [facility] GE use only - for [employer] import when terms are not otherwise specified . Invalid Interpretation Code [facility] Microbiology: (P) Radha Santiago Comprehensive 01-19-2017 GE use only - for [employer] import when terms are not otherwise specified . Invalid Interpretation Code [facility] Microbiology: (P) Culture, G enital Comprehensiveon 01-18-2017 GE use only - for [employer] import when terms are not otherwise specified . Invalid Interpretation Code [facility] Office Visit: bloody vaginal dischargeon 01-17-2017 Documentation of current medications (procedure) Done Invalid Interpretation Code [facility] Fall risk assessment No Invalid Interpretation Code [facility] Protein mass conc Done [facility] Tobacco smoking status VTIS Never Invalid Interpretation Code [facility] Tobacco smoking status VTIS Current every day smoker Invalid Interpretation Code [facility] Tobacco use [facility] Current every day smoker Invalid Interpretation Code [facility] Microbiology: Culture, Urine on 01-11-2017 CUUR . [facility] Append: OB Initialon 017 crown rump length by ultrasound 6.1 mm Invalid Interpretation Code [facility] estimated date of confinement by sonogram 09/01/2017 Invalid Interpretation Code [facility] cardiac activity by sonography Yes Invalid Interpretation Code [facility] number by ultrasound 1 Invalid Interpretation Code [facility] gestational age by ultrasound 6W 3D Invalid Interpretation Code [facility] OB ultrasound, gestational sac Yes Invalid Interpretation Code [facility] Lab Report: CT/NG [facility] BY PCR on 01-09-2017 Chlamydia trachomatis DNA [Presence] in Urine by Probe and target amplification method Negative Invalid Interpretation Code Negative [facility] Neisseria gonorrhoeae presence Negative Invalid Interpretation Code Negative [facility] Office Visit: OB Initialon 0 01-09-2017 Fall risk assessment [facility] Herpes Simplex Virus Genital no Invalid Interpretation Code [facility] Tobacco smoking status NHIS Never [facility] Tobacco smoking status VTIS Current every day smoker [facility] Tobacco use [facility] Current every day smoker Invalid Interpretation Code [facility] Office Visit: OB Initialon 0 12-21-2015 General categories [Interpretation] of Cervical or vaginal smear or scraping by Cyto stain ASCUS Invalid Interpretation Code [facility] Bacteria identified Anaer cx Nom (Unsp spec) Anaerobic Culture Prevotella bivia [facility] Work Phone: Anaerobic Culture Prevotella melaninogenica [facility] Work Phone: [phone] Anaerobic Culture Anaerobic cocci [facility] Work Phone: [phone] Bacteria identified Cx Nom ( Wound) Wound Culture Enterococcus faecalis [facility] Work Phone: Culture, urine Bacteria identified Cx Nom (U) Positive [facility] Work Phone: Bacteria identified Cx Nom (U) Mixed Gram Pos & Gram Neg Org [facility] Work Phone: [phone] Gram stain for investigation of transfusion reaction Microscopic observation Gram stain Nom (Unsp spec) [facility] Work Phone: Influenza virus A and B and SARS-CoV-2 (COVID-19) Ag panel - Upper respiratory specim SARS-CoV-2 (COVID-19) RNA JONE+probe Ql (Resp) [facility] Work Phone: Laboratory - Microbiology an d Antimicrobial susceptibility Bacteria identified Cx Nom (Bld) No growth in [address] [facility] Work Phone: No Panel Information SARS-CoV-2 & FLU Antigen (Rapid) [facility] Work Phone: Vital Signs Date Time Vital Sign Value Performing Clinician Lennox calles 06-21-2024 13:58-0500 Body temperature 98.91 [degF] Tomasz Ace Jr., DPM Work Phone: [facility] 06-21-2024 13:58-0500 Diastolic blood pressure 82 mm[Hg] oTmasz Ace Jr., DPM Work Phone: [facility] 06-21-2024 13:58-0500 Heart rate 90 /min Tomasz Ace Jr., DPM Work Phone: [facility] 06-21-2024 13:58-0500 Systolic blood pressure 128 mm[Hg] Tomasz Ace Jr., DPM Work Phone: [facility] 09-29-2023 15:14-0400 Body height 167.[address] Aleena London Work Phone: [facility] 09-29-2023 15:14-0400 Body mass index (BMI) [Ratio] 38.6 kg/m2 Dr. Aleena London Work Phone: [facility] 09-29-2023 15:14-0400 Body temperature 97 [degF] Dr. Aleena London Work Phone: [facility] 09-29-2023 15:14-0400 Body weight 108.[address] Aleena London Work Phone: [facility] 09-29-2023 15:14-0400 Diastolic blood pressure 90 mm[Hg] Dr. Aleena London Work Phone: [facility] 09-29-2023 15:14-0400 Heart rate 65 /min Dr. Aleena London Work Phone: [facility] 09-29-2023 15:14-0400 Respiratory rate 16 /min Dr. Aleena London Work Phone: [facility] 09-29-2023 15:14-0400 SaO2% (BldA) [Mass fraction] 100 % Dr. Aleena London Work Phone: [facility] 09-29-2023 15:14-0400 Systolic blood pressure 149 mm[Hg] Dr. Aleena London Work Phone: [facility] 09-14-2023 15:11-0400 Body mass index (BMI) [Ratio] 38.3 kg/m2 Dr. Aleena London Work Phone: [facility] 09-14-2023 15:11-0400 Body temperature 98.7 [degF] Dr. Aleena London Work Phone: [facility] 09-14-2023 15:11-0400 Body weight 107.[address] Aleena London Work Phone: [facility] 09-14-2023 15:11-0400 Diastolic blood pressure 82 mm[Hg] Dr. Aleena London Work Phone: [facility] 09-14-2023 15:11-0400 Heart rate 83 /min Dr. Aleena London Work Phone: [facility] 09-14-2023 15:11-0400 Respiratory rate 16 /min Dr. Aleena London Work Phone: [facility] 09-14-2023 15:11-0400 SaO2% (BldA) [Mass fraction] 98 % Dr. Aleena London Work Phone: [facility] 09-14-2023 15:11-0400 Systolic blood pressure 128 mm[Hg] Dr. Aleena London Work Phone: [facility] 09-14-2023 12:10-0400 Body temperature 98.4 [degF] Dr. Aleena London Work Phone: [facility] 09-14-2023 12:10-0400 Diastolic blood pressure 80 mm[Hg] Dr. Aleena London Work Phone: [facility] 09-14-2023 12:10-0400 Heart rate 95 /min Dr. Aleena London Work Phone: [facility] 09-14-2023 12:10-0400 Respiratory rate 12 /min Dr. Aleena London Work Phone: [facility] 09-14-2023 12:10-0400 SaO2% (BldA) [Mass fraction] 98 % Dr. Aleena London Work Phone: [facility] 09-14-2023 12:10-0400 Systolic blood pressure 126 mm[Hg] Dr. Aleena London Work Phone: [facility] 09-11-2023 14:47-0400 Body height 167.[address] Aleena London Work Phone: [facility] 09-11-2023 14:47-0400 Body mass index (BMI) [Ratio] 38.2 kg/m2 Dr. Aleena London Work Phone: [facility] 09-11-2023 14:47-0400 Body temperature 99.4 [degF] Dr. Aleena London Work Phone: [facility] 09-11-2023 14:47-0400 Body weight 107.[address] Aleena London Work Phone: [facility] 09-11-2023 14:47-0400 Diastolic blood pressure 82 mm[Hg] Dr. Aleena London Work Phone: [facility] 09-11-2023 14:47-0400 Heart rate 92 /min Dr. Aleena London Work Phone: [facility] 09-11-2023 14:47-0400 Respiratory rate 14 /min Dr. Aleena London Work Phone: [facility] 09-11-2023 14:47-0400 SaO2% (BldA) [Mass fraction] 99 % Dr. Aleena London Work Phone: [facility] 09-11-2023 14:47-0400 Systolic blood pressure 122 mm[Hg] Dr. Aleena London Work Phone: [facility] 09-05-2023 14:01-0400 Body height 167.[address] Aleena London Work Phone: [facility] 09-05-2023 14:00-0400 Body mass index (BMI) [Ratio] 38 kg/m2 Dr. Aleena London Work Phone: [facility] 09-05-2023 14:00-0400 Body weight 106.[address] Aleena London Work Phone: [facility] 09-05-2023 14:00-0400 Diastolic blood pressure 82 mm[Hg] Dr. Aleena London Work Phone: [facility] 09-05-2023 14:00-0400 Systolic blood pressure 139 mm[Hg] Dr. Aleena London Work Phone: [facility] 09-05-2023 09:46-0400 Body mass index (BMI) [Ratio] 37.8 kg/m2 Dr. Aleena London Work Phone: [facility] 09-05-2023 09:46-0400 Body weight 106.[address] Aleena London Work Phone: [facility] 09-05-2023 09:46-0400 Diastolic blood pressure 75 mm[Hg] Dr. Aleena London Work Phone: [facility] 09-05-2023 09:46-0400 Heart rate 71 /min Dr. Aleena London Work Phone: [facility] 09-05-2023 09:46-0400 SaO2% (BldA) [Mass fraction] 98 % Dr. Aleena London Work Phone: [facility] 09-05-2023 09:46-0400 Systolic blood pressure 113 mm[Hg] Dr. Aleena London Work Phone: [facility] 07-26-2023 00:39-0500 Respiratory rate 18 /min Dr. Aleena London Work Phone: [facility] 07-25-2023 19:13-0500 Body height 167.[address] Aleena London Work Phone: [facility] 07-25-2023 19:13-0500 Body mass index (BMI) [Ratio] 37.9 kg/m2 Dr. Aleena London Work Phone: [facility] 07-25-2023 19:13-0500 Body temperature 98 [degF] Dr. Aleena Lodnon Work Phone: [facility] 07-25-2023 19:13-0500 Body weight 106.[address] Aleena London Work Phone: [facility] 07-25-2023 19:13-0500 Diastolic blood pressure 84 mm[Hg] Dr. Aleena London Work Phone: [facility] 07-25-2023 19:13-0500 Heart rate 85 /min Dr. Aleena London Work Phone: [facility] 07-25-2023 19:13-0500 SaO2% (BldA) [Mass fraction] 100 % Dr. Aleena London Work Phone: [facility] 07-25-2023 19:13-0500 Systolic blood pressure 122 mm[Hg] Dr. Aleena London Work Phone: [facility] 07-18-2023 23:43-0500 Body temperature 98 [degF] Dr. Aleena London Work Phone: [facility] 07-18-2023 23:43-0500 Diastolic blood pressure 83 mm[Hg] Dr. Aleena London Work Phone: [facility] 07-18-2023 23:43-0500 Heart rate 74 /min Dr. Aleena London Work Phone: [facility] 07-18-2023 23:43-0500 Respiratory rate 16 /min Dr. Aleena London Work Phone: [facility] 07-18-2023 23:43-0500 SaO2% (BldA) [Mass fraction] 96 % Dr. Aleena London Work Phone: [facility] 07-18-2023 23:43-0500 Systolic blood pressure 120 mm[Hg] Dr. Aleena London Work Phone: [facility] 07-18-2023 20:12-0500 Body height 167.[address] Aleena London Work Phone: [facility] 07-18-2023 20:12-0500 Body mass index (BMI) [Ratio] 37.1 kg/m2 Dr. Aleena oLndon Work Phone: [facility] 07-18-2023 20:12-0500 Body weight 104.[address] Aleena London Work Phone: [facility] 07-18-2023 11:04-0500 Body mass index (BMI) [Ratio] 37.5 kg/m2 Dr. Aleena London Work Phone: [facility] 07-18-2023 11:04-0500 Body weight 105.[address] Aleena London Work Phone: [facility] 07-18-2023 11:04-0500 Diastolic blood pressure 74 mm[Hg] Dr. Aleena London Work Phone: [facility] 07-18-2023 11:04-0500 Systolic blood pressure 112 mm[Hg] Dr. Aleena London Work Phone: [facility] 07-13-2023 12:29-0500 Body temperature 99 [degF] Dr. Aleena London Work Phone: [facility] 07-13-2023 12:29-0500 Diastolic blood pressure 82 mm[Hg] Dr. Aleena London Work Phone: [facility] 07-13-2023 12:29-0500 Heart rate 109 /min Dr. Aleena London Work Phone: [facility] 07-13-2023 12:29-0500 Respiratory rate 12 /min Dr. Aleena London Work Phone: [facility] 07-13-2023 12:29-0500 SaO2% (BldA) [Mass fraction] 98 % Dr. Aleena London Work Phone: [facility] 07-13-2023 12:29-0500 Systolic blood pressure 122 mm[Hg] Dr. Aleena London Work Phone: [facility] 07-04-2023 14:23-0500 Body mass index (BMI) [Ratio] 38 kg/m2 Dr. Aleena London Work Phone: [facility] 07-04-2023 14:23-0500 Body temperature 97.5 [degF] Dr. Aleena London Work Phone: [facility] 07-04-2023 14:23-0500 Body weight 106.[address] Aleena London Work Phone: [facility] 07-04-2023 14:23-0500 Diastolic blood pressure 62 mm[Hg] Dr. Aleena London Work Phone: [facility] 07-04-2023 14:23-0500 Heart rate 82 /min Dr. Aleena London Work Phone: [facility] 07-04-2023 14:23-0500 Respiratory rate 16 /min Dr. Aleena London Work Phone: [facility] 07-04-2023 14:23-0500 SaO2% (BldA) [Mass fraction] 99 % Dr. Aleena London Work Phone: [facility] 07-04-2023 14:23-0500 Systolic blood pressure 122 mm[Hg] Dr. Aleena London Work Phone: [facility] 06-29-2023 09:42-0500 Body mass index (BMI) [Ratio] 60.7 kg/m2 Dr. Aleena London Work Phone: [facility] 06-29-2023 09:42-0500 Body temperature 97.9 [degF] Dr. Aleena London Work Phone: [facility] 06-29-2023 09:42-0500 Body weight 170.[address] Aleena London Work Phone: [facility] 06-29-2023 09:42-0500 Diastolic blood pressure 78 mm[Hg] Dr. Aleena London Work Phone: [facility] 06-29-2023 09:42-0500 Heart rate 94 /min Dr. Aleena London Work Phone: [facility] 06-29-2023 09:42-0500 Respiratory rate 16 /min Dr. Aleena London Work Phone: [facility] 06-29-2023 09:42-0500 SaO2% (BldA) [Mass fraction] 100 % Dr. Aleena London Work Phone: [facility] 06-29-2023 09:42-0500 Systolic blood pressure 136 mm[Hg] Dr. Aleena London Work Phone: [facility] 05-04-2023 12:50-0500 Diastolic blood pressure 77 mm[Hg] Dr. Aleena London Work Phone: [facility] 05-04-2023 12:50-0500 Heart rate 71 /min Dr. Aleena London Work Phone: [facility] 05-04-2023 12:50-0500 Respiratory rate 16 /min Dr. Aleena London Work Phone: [facility] 05-04-2023 12:50-0500 Systolic blood pressure 117 mm[Hg] Dr. Aleena London Work Phone: [facility] 05-04-2023 12:19-0500 Body height 167.[address] Aleena London Work Phone: [facility] 05-04-2023 12:19-0500 Body mass index (BMI) [Ratio] 37.5 kg/m2 Dr. Aleena London Work Phone: [facility] 05-04-2023 12:19-0500 Body temperature 98.3 [degF] Dr. Aleena London Work Phone: [facility] 05-04-2023 12:19-0500 Body weight 105.[address] Aleena London Work Phone: [facility] 05-04-2023 12:19-0500 SaO2% (BldA) [Mass fraction] 100 % Dr. Aleena London Work Phone: [facility] 04-19-2023 11:12-0500 Body mass index (BMI) [Ratio] 37.5 kg/m2 Dr. Aleena London Work Phone: [facility] 04-19-2023 11:12-0500 Body temperature 98.7 [degF] Dr. Aleena London Work Phone: [facility] 04-19-2023 11:12-0500 Body weight 105.[address] Aleena London Work Phone: [facility] 04-19-2023 11:12-0500 Diastolic blood pressure 86 mm[Hg] Dr. Aleena London Work Phone: [facility] 04-19-2023 11:12-0500 Heart rate 85 /min Dr. Aleena London Work Phone: [facility] 04-19-2023 11:12-0500 Respiratory rate 16 /min Dr. Aleena London Work Phone: [facility] 04-19-2023 11:12-0500 SaO2% (BldA) [Mass fraction] 98 % Dr. Aleena London Work Phone: [facility] 04-19-2023 11:12-0500 Systolic blood pressure 122 mm[Hg] Dr. Aleena London Work Phone: [facility] 04-17-2023 13:09-0500 Body height 167.[address] Aleena London Work Phone: [facility] 04-17-2023 13:09-0500 Body mass index (BMI) [Ratio] 37.8 kg/m2 Dr. Aleena London Work Phone: [facility] 04-17-2023 13:09-0500 Body temperature 95.9 [degF] Dr. Aleena London Work Phone: [facility] 04-17-2023 13:09-0500 Body weight 106.[address] Aleena London Work Phone: [facility] 04-17-2023 13:09-0500 Diastolic blood pressure 94 mm[Hg] Dr. Aleena London Work Phone: [facility] 04-17-2023 13:09-0500 Heart rate 107 /min Dr. Aleena London Work Phone: [facility] 04-17-2023 13:09-0500 Respiratory rate 18 /min Dr. Aleena London Work Phone: [facility] 04-17-2023 13:09-0500 SaO2% (BldA) [Mass fraction] 100 % Dr. Aleena London Work Phone: [facility] 04-17-2023 13:09-0500 Systolic blood pressure 145 mm[Hg] Dr. Aleena London Work Phone: [facility] 04-06-2023 14:05-0500 Body height 167.[address] Aleena London Work Phone: [facility] 04-06-2023 14:03-0500 Body mass index (BMI) [Ratio] 37.8 kg/m2 Dr. Aleena London Work Phone: [facility] 04-06-2023 14:03-0500 Body weight 106.[address] Aleena London Work Phone: [facility] 04-06-2023 14:03-0500 Diastolic blood pressure 88 mm[Hg] Dr. Aleena London Work Phone: [facility] 04-06-2023 14:03-0500 Systolic blood pressure 124 mm[Hg] Dr. Aleena London Work Phone: [facility] 03-16-2023 08:15-0400 Body height 167.[address] Aleena London Work Phone: [facility] 03-07-2023 14:41-0400 Body temperature 99 [degF] Dr. Aleena London Work Phone: [facility] 03-07-2023 14:41-0400 Diastolic blood pressure 82 mm[Hg] Dr. Aleena London Work Phone: [facility] 03-07-2023 14:41-0400 Heart rate 82 /min Dr. Aleena London Work Phone: [facility] 03-07-2023 14:41-0400 Respiratory rate 17 /min Dr. Aleena London Work Phone: [facility] 03-07-2023 14:41-0400 SaO2% (BldA) [Mass fraction] 98 % Dr. Aleena London Work Phone: [facility] 03-07-2023 14:41-0400 Systolic blood pressure 125 mm[Hg] Dr. Aleena London Work Phone: [facility] 02-14-2023 08:24-0400 Body temperature 98.9 [degF] Dr. Aleena London Work Phone: [facility] 02-14-2023 08:24-0400 Diastolic blood pressure 71 mm[Hg] Dr. Aleena London Work Phone: [facility] 02-14-2023 08:24-0400 Heart rate 82 /min Dr. Aleena London Work Phone: [facility] 02-14-2023 08:24-0400 Respiratory rate 16 /min Dr. Aleena London Work Phone: [facility] 02-14-2023 08:24-0400 SaO2% (BldA) [Mass fraction] 98 % Dr. Aleena London Work Phone: [facility] 02-14-2023 08:24-0400 Systolic blood pressure 117 mm[Hg] Dr. Aleena London Work Phone: [facility] 02-14-2023 07:13-0400 Body height 167.[address] Aleena London Work Phone: [facility] 02-14-2023 07:13-0400 Body mass index (BMI) [Ratio] 36.3 kg/m2 Dr. Aleena London Work Phone: [facility] 02-14-2023 07:13-0400 Body weight [address] Aleena London Work Phone: [facility] 02-10-2023 09:57-0400 Body mass index (BMI) [Ratio] 36.8 kg/m2 Dr. Aleena London Work Phone: [facility] 02-10-2023 09:57-0400 Body weight 103.[address] Aleena London Work Phone: [facility] 02-10-2023 09:57-0400 Diastolic blood pressure 74 mm[Hg] Dr. Aleena London Work Phone: [facility] 02-10-2023 09:57-0400 Systolic blood pressure 123 mm[Hg] Dr. Aleena London Work Phone: [facility] 02-08-2023 23:04-0400 Diastolic blood pressure 74 mm[Hg] Dr. Aleena London Work Phone: [facility] 02-08-2023 23:04-0400 Heart rate 81 /min Dr. Aleena London Work Phone: [facility] 02-08-2023 23:04-0400 Respiratory rate 16 /min Dr. Aleena London Work Phone: [facility] 02-08-2023 23:04-0400 SaO2% (BldA) [Mass fraction] 99 % Dr. Aleena London Work Phone: [facility] 02-08-2023 23:04-0400 Systolic blood pressure 128 mm[Hg] Dr. Aleena London Work Phone: [facility] 02-08-2023 17:51-0400 Body height 167.[address] Aleena London Work Phone: [facility] 02-08-2023 17:51-0400 Body mass index (BMI) [Ratio] 36.4 kg/m2 Dr. Aleena London Work Phone: [facility] 02-08-2023 17:51-0400 Body temperature 97.5 [degF] Dr. Aleena London Work Phone: [facility] 02-08-2023 17:51-0400 Body weight 102.[address] Aleena London Work Phone: [facility] 02-04-2023 20:12-0400 Respiratory rate 16 /min Dr. Aleena London Work Phone: [facility] 02-04-2023 18:44-0400 Body height 167.[address] Aleena London Work Phone: [facility] 02-04-2023 18:44-0400 Body mass index (BMI) [Ratio] 36.4 kg/m2 Dr. Aleena London Work Phone: [facility] 02-04-2023 18:44-0400 Body temperature 97.6 [degF] Dr. Aleena London Work Phone: [facility] 02-04-2023 18:44-0400 Body weight 102.[address] Aleena London Work Phone: [facility] 02-04-2023 18:44-0400 Diastolic blood pressure 89 mm[Hg] Dr. Aleena London Work Phone: [facility] 02-04-2023 18:44-0400 Heart rate 88 /min Dr. Aleena London Work Phone: [facility] 02-04-2023 18:44-0400 SaO2% (BldA) [Mass fraction] 100 % Dr. Aleena London Work Phone: [facility] 02-04-2023 18:44-0400 Systolic blood pressure 125 mm[Hg] Dr. Aleena London Work Phone: [facility] 01-16-2023 09:13-0400 Body mass index (BMI) [Ratio] 36.5 kg/m2 Dr. Aleena London Work Phone: [facility] 01-16-2023 09:13-0400 Body temperature 95.5 [degF] Dr. Aleena London Work Phone: [facility] 01-16-2023 09:13-0400 Body weight 102.[address] Aleena London Work Phone: [facility] 01-16-2023 09:13-0400 Diastolic blood pressure 86 mm[Hg] Dr. Aleena London Work Phone: [facility] 01-16-2023 09:13-0400 Heart rate 96 /min Dr. Aleena London Work Phone: [facility] 01-16-2023 09:13-0400 Respiratory rate 18 /min Dr. Aleena London Work Phone: [facility] 01-16-2023 09:13-0400 SaO2% (BldA) [Mass fraction] 98 % Dr. Aleena London Work Phone: [facility] 01-16-2023 09:13-0400 Systolic blood pressure 134 mm[Hg] Dr. Aleena London Work Phone: [facility] 12-25-2022 12:31-0400 Body height 167.[address] Aleena London Work Phone: [facility] 12-25-2022 12:31-0400 Body mass index (BMI) [Ratio] 36.3 kg/m2 Dr. Aleena London Work Phone: [facility] 12-25-2022 12:31-0400 Body temperature 97.1 [degF] Dr. Aleena London Work Phone: [facility] 12-25-2022 12:31-0400 Body weight 102.[address] Aleena London Work Phone: [facility] 12-25-2022 12:31-0400 Diastolic blood pressure 124 mm[Hg] Dr. Aleena London Work Phone: [facility] 12-25-2022 12:31-0400 Heart rate 90 /min Dr. Aleena London Work Phone: [facility] 12-25-2022 12:31-0400 Respiratory rate 18 /min Dr. Aleena London Work Phone: [facility] 12-25-2022 12:31-0400 SaO2% (BldA) [Mass fraction] 100 % Dr. Aleena London Work Phone: [facility] 12-25-2022 12:31-0400 Systolic blood pressure 145 mm[Hg] Dr. Aleena London Work Phone: [facility] 12-15-2022 10:30-0400 Body height 167.[address] Aleena London Work Phone: [facility] 12-15-2022 10:30-0400 Body mass index (BMI) [Ratio] 36.1 kg/m2 Dr. Aleena London Work Phone: [facility] 12-15-2022 10:30-0400 Body weight 101.[address] Aleena London Work Phone: [facility] 12-15-2022 10:30-0400 Diastolic blood pressure 80 mm[Hg] Dr. Aleena London Work Phone: [facility] 12-15-2022 10:30-0400 Systolic blood pressure 125 mm[Hg] Dr. Aleena London Work Phone: [facility] 12-08-2022 11:55-0400 Body mass index (BMI) [Ratio] 35.7 kg/m2 Dr. Aleena London Work Phone: [facility] 12-08-2022 11:55-0400 Body weight 100.[address] Aleena London Work Phone: [facility] 12-08-2022 11:55-0400 Diastolic blood pressure 85 mm[Hg] Dr. Aleena London Work Phone: [facility] 12-08-2022 11:55-0400 Systolic blood pressure 121 mm[Hg] Dr. Aleena London Work Phone: [facility] 11-19-2022 20:47-0400 Body height 167.[address] Aleena London Work Phone: [facility] 11-19-2022 20:47-0400 Body mass index (BMI) [Ratio] 36.1 kg/m2 Dr. Aleena London Work Phone: [facility] 11-19-2022 20:47-0400 Body temperature 97.6 [degF] Dr. Aleena London Work Phone: [facility] 11-19-2022 20:47-0400 Body weight 101.[address] Aleena London Work Phone: [facility] 11-19-2022 20:47-0400 Diastolic blood pressure 94 mm[Hg] Dr. Aleena London Work Phone: [facility] 11-19-2022 20:47-0400 Heart rate 99 /min Dr. Aleena London Work Phone: [facility] 11-19-2022 20:47-0400 Respiratory rate 14 /min Dr. Aleena London Work Phone: [facility] 11-19-2022 20:47-0400 SaO2% (BldA) [Mass fraction] 100 % Dr. Aleena London Work Phone: [facility] 11-19-2022 20:47-0400 Systolic blood pressure 130 mm[Hg] Dr. Aleena London Work Phone: [facility] 11-16-2022 10:43-0400 Body height 167.6 cm Lukasz Eubanks MD Work Phone: [facility] 11-16-2022 10:43-0400 Body temperature 98.6 [degF] Lukasz Eubanks MD Work Phone: [facility] 11-16-2022 10:43-0400 Body weight 102.06 kg Lukasz Eubanks MD Work Phone: [facility] 11-16-2022 10:43-0400 Diastolic blood pressure 90 mm[Hg] Lukasz Eubanks MD Work Phone: [facility] 11-16-2022 10:43-0400 Heart rate 79 /min Lukasz Eubanks MD Work Phone: [facility] 11-16-2022 10:43-0400 SaO2% (BldA) [Mass fraction] 100 % Lukasz Eubanks MD Work Phone: [facility] 11-16-2022 10:43-0400 Systolic blood pressure 125 mm[Hg] Lukasz Eubanks MD Work Phone: [facility] 11-08-2022 16:37-0400 Body height 167.[address] Aleena London Work Phone: [facility] 11-08-2022 16:37-0400 Body mass index (BMI) [Ratio] 36.2 kg/m2 Dr. Aleena London Work Phone: [facility] 11-08-2022 16:37-0400 Body temperature 96.5 [degF] Dr. Aleena London Work Phone: [facility] 11-08-2022 16:37-0400 Body weight 101.[address] Aleena London Work Phone: [facility] 11-08-2022 16:37-0400 Diastolic blood pressure 100 mm[Hg] Dr. Aleena London Work Phone: [facility] 11-08-2022 16:37-0400 Heart rate 100 /min Dr. Aleena London Work Phone: [facility] 11-08-2022 16:37-0400 Respiratory rate 18 /min Dr. Aleena London Work Phone: [facility] 11-08-2022 16:37-0400 SaO2% (BldA) [Mass fraction] 93 % Dr. Aleena London Work Phone: [facility] 11-08-2022 16:37-0400 Systolic blood pressure 114 mm[Hg] Dr. Aleena London Work Phone: [facility] 09-02-2022 10:43-0400 Body height 167.[address] Aleena Londno Work Phone: [facility] 09-02-2022 10:43-0400 Body mass index (BMI) [Ratio] 35.6 kg/m2 Dr. Aleena London Work Phone: [facility] 09-02-2022 10:43-0400 Body temperature 99.5 [degF] Dr. Aleena London Work Phone: [facility] 09-02-2022 10:43-0400 Body weight 100.[address] Aleena London Work Phone: [facility] 09-02-2022 10:43-0400 Diastolic blood pressure 74 mm[Hg] Dr. Aleena London Work Phone: [facility] 09-02-2022 10:43-0400 Heart rate 90 /min Dr. Aleena London Work Phone: [facility] 09-02-2022 10:43-0400 Respiratory rate 16 /min Dr. Aleena London Work Phone: [facility] 09-02-2022 10:43-0400 SaO2% (BldA) [Mass fraction] 98 % Dr. Aleena London Work Phone: [facility] 04-14-2023 10:43-0400 Systolic blood pressure 120 mm[Hg] Dr. Aleena London Work Phone: [facility] 08-26-2022 16:47-0400 Respiratory rate 18 /min Dr. Aleena London Work Phone: [facility] 08-26-2022 15:00-0400 Body mass index (BMI) [Ratio] 36.4 kg/m2 Dr. Aleena London Work Phone: [facility] 08-26-2022 15:00-0400 Body temperature 97.7 [degF] Dr. Aleena London Work Phone: [facility] 08-26-2022 15:00-0400 Body weight 102.[address] Aleena London Work Phone: [facility] 08-26-2022 15:00-0400 Diastolic blood pressure 93 mm[Hg] Dr. Aleena London Work Phone: [facility] 08-26-2022 15:00-0400 Heart rate 97 /min Dr. Aleena London Work Phone: [facility] 08-26-2022 15:00-0400 SaO2% (BldA) [Mass fraction] 100 % Dr. Aleena London Work Phone: [facility] 08-26-2022 15:00-0400 Systolic blood pressure 131 mm[Hg] Dr. Aleena London Work Phone: [facility] 08-22-2022 10:08-0400 Body mass index (BMI) [Ratio] 36.4 kg/m2 Dr. Aleena London Work Phone: [facility] 08-22-2022 10:08-0400 Body temperature 97.6 [degF] Dr. Aleena London Work Phone: [facility] 08-22-2022 10:08-0400 Body weight 102.[address] Aleena London Work Phone: [facility] 08-22-2022 10:08-0400 Diastolic blood pressure 80 mm[Hg] Dr. Aleena London Work Phone: [facility] 08-22-2022 10:08-0400 Heart rate 84 /min Dr. Aleena London Work Phone: [facility] 08-22-2022 10:08-0400 Respiratory rate 18 /min Dr. Aleena London Work Phone: [facility] 08-22-2022 10:08-0400 SaO2% (BldA) [Mass fraction] 96 % Dr. Aleena London Work Phone: [facility] 08-22-2022 10:08-0400 Systolic blood pressure 136 mm[Hg] Dr. Aleena London Work Phone: [facility] 08-18-2022 00:17-0400 Diastolic blood pressure 80 mm[Hg] Dr. Aleena London Work Phone: [facility] 08-18-2022 00:17-0400 Heart rate 81 /min Dr. Aleena London Work Phone: [facility] 08-18-2022 00:17-0400 Respiratory rate 16 /min Dr. Aleena London Work Phone: [facility] 08-18-2022 00:17-0400 SaO2% (BldA) [Mass fraction] 98 % Dr. Aleena London Work Phone: [facility] 08-18-2022 00:17-0400 Systolic blood pressure 130 mm[Hg] Dr. Aleena London Work Phone: [facility] 08-17-2022 21:13-0400 Body mass index (BMI) [Ratio] 36.7 kg/m2 Dr. Aleena London Work Phone: [facility] 08-17-2022 21:13-0400 Body temperature 96.6 [degF] Dr. Aleena London Work Phone: [facility] 08-17-2022 21:13-0400 Body weight 103.[address] Aleena London Work Phone: [facility] 08-15-2022 17:17-0400 Diastolic Blood Pressure Non-Invasive [...] ALAN QUINN DO [facility] 08-08-2022 11:35-0400 Body mass index (BMI) [Ratio] 37 kg/m2 Dr. Aleena London Work Phone: [facility] 08-08-2022 11:35-0400 Body weight 103.[address] Aleena London Work Phone: [facility] 08-08-2022 11:35-0400 Diastolic blood pressure 72 mm[Hg] Dr. Aleena London Work Phone: [facility] 08-08-2022 11:35-0400 Systolic blood pressure 114 mm[Hg] Dr. Aleena London Work Phone: [facility] 07-17-2022 20:31-0500 Diastolic blood pressure 81 mm[Hg] Dr. Aleena London Work Phone: [facility] 07-17-2022 20:31-0500 Heart rate 83 /min Dr. Aleena London Work Phone: [facility] 07-17-2022 20:31-0500 Respiratory rate 24 /min Dr. Aleena London Work Phone: [facility] 07-17-2022 20:31-0500 SaO2% (BldA) [Mass fraction] 121 % Dr. Aleena London Work Phone: [facility] 07-17-2022 20:31-0500 Systolic blood pressure 121 mm[Hg] Dr. Aleena London Work Phone: [facility] 07-17-2022 18:22-0500 Body height 167.[address] Aleena London Work Phone: [facility] 07-17-2022 18:22-0500 Body mass index (BMI) [Ratio] 36.8 kg/m2 Dr. Aleena London Work Phone: [facility] 07-17-2022 18:22-0500 Body temperature 98.2 [degF] Dr. Aleena London Work Phone: [facility] 07-17-2022 18:22-0500 Body weight 103.[address] Aleena London Work Phone: [facility] 07-14-2022 14:08-0500 Body mass index (BMI) [Ratio] 37.3 kg/m2 Dr. Aleena London Work Phone: [facility] 07-14-2022 14:08-0500 Body weight 104.[address] Aleena London Work Phone: [facility] 07-14-2022 14:08-0500 Diastolic blood pressure 84 mm[Hg] Dr. Aleena London Work Phone: [facility] 07-14-2022 14:08-0500 Heart rate 101 /min Dr. Aleena London Work Phone: [facility] 07-14-2022 14:08-0500 SaO2% (BldA) [Mass fraction] 97 % Dr. Aleena London Work Phone: [facility] 07-14-2022 14:08-0500 Systolic blood pressure 130 mm[Hg] Dr. Aleena London Work Phone: [facility] 06-29-2022 08:10-0500 Body height 167.[address] Aleena London Work Phone: [facility] 06-29-2022 08:10-0500 Body mass index (BMI) [Ratio] 37.5 kg/m2 Dr. Aleena London Work Phone: [facility] 06-29-2022 08:10-0500 Body temperature 98.8 [degF] Dr. Aleena London Work Phone: [facility] 06-29-2022 08:10-0500 Body weight 105.[address] Aleena London Work Phone: [facility] 06-29-2022 08:10-0500 Diastolic blood pressure 86 mm[Hg] Dr. Aleena London Work Phone: [facility] 06-29-2022 08:10-0500 Heart rate 76 /min Dr. Aleena London Work Phone: [facility] 06-29-2022 08:10-0500 Respiratory rate 18 /min Dr. Aleena London Work Phone: [facility] 06-29-2022 08:10-0500 SaO2% (BldA) [Mass fraction] 97 % Dr. Aleena London Work Phone: [facility] 06-29-2022 08:10-0500 Systolic blood pressure 124 mm[Hg] Dr. Aleena London Work Phone: [facility] 06-10-2022 09:10-0500 Body height 167.[address] Aleena London Work Phone: [facility] 06-10-2022 09:10-0500 Body mass index (BMI) [Ratio] 36.8 kg/m2 Dr. Aleena London Work Phone: [facility] 06-10-2022 09:10-0500 Body temperature 98.1 [degF] Dr. Aleena London Work Phone: [facility] 06-10-2022 09:10-0500 Body weight 103.[address] Aleena London Work Phone: [facility] 06-10-2022 09:10-0500 Diastolic blood pressure 127 mm[Hg] Dr. Aleena London Work Phone: [facility] 06-10-2022 09:10-0500 Heart rate 96 /min Dr. Aleena London Work Phone: [facility] 06-10-2022 09:10-0500 Respiratory rate 15 /min Dr. Aleena London Work Phone: [facility] 06-10-2022 09:10-0500 SaO2% (BldA) [Mass fraction] 100 % Dr. Aleena London Work Phone: [facility] 06-10-2022 09:10-0500 Systolic blood pressure 142 mm[Hg] Dr. Aleena London Work Phone: [facility] 05-30-2022 09:42-0500 Body mass index (BMI) [Ratio] 36.9 kg/m2 Dr. Aleena London Work Phone: [facility] 05-30-2022 09:42-0500 Body temperature 98.1 [degF] Dr. Aleena London Work Phone: [facility] 05-30-2022 09:42-0500 Body weight 103.[address] Aleena London Work Phone: [facility] 05-30-2022 09:42-0500 Diastolic blood pressure 74 mm[Hg] Dr. Aleena London Work Phone: [facility] 05-30-2022 09:42-0500 Heart rate 82 /min Dr. Aleena London Work Phone: [facility] 05-30-2022 09:42-0500 Respiratory rate 14 /min Dr. Aleena London Work Phone: [facility] 05-30-2022 09:42-0500 SaO2% (BldA) [Mass fraction] 99 % Dr. Aleena London Work Phone: [facility] 05-30-2022 09:42-0500 Systolic blood pressure 126 mm[Hg] Dr. Aleena London Work Phone: [facility] 05-24-2022 08:46-0500 Body mass index (BMI) [Ratio] 37.1 kg/m2 Dr. Aleena London Work Phone: [facility] 05-24-2022 08:46-0500 Body temperature 97.8 [degF] Dr. Aleena London Work Phone: [facility] 05-24-2022 08:46-0500 Body weight 104.[address] Aleena London Work Phone: [facility] 05-24-2022 08:46-0500 Diastolic blood pressure 84 mm[Hg] Dr. Aleena London Work Phone: [facility] 05-24-2022 08:46-0500 Heart rate 89 /min Dr. Aleena London Work Phone: [facility] 05-24-2022 08:46-0500 Respiratory rate 20 /min Dr. Aleena London Work Phone: [facility] 05-24-2022 08:46-0500 SaO2% (BldA) [Mass fraction] 99 % Dr. Aleena London Work Phone: [facility] 05-24-2022 08:46-0500 Systolic blood pressure 129 mm[Hg] Dr. Aleena London Work Phone: [facility] 05-23-2022 02:21-0500 Diastolic blood pressure 82 mm[Hg] Dr. Aleena London Work Phone: [facility] 05-23-2022 02:21-0500 Heart rate 77 /min Dr. Aleena London Work Phone: [facility] 05-23-2022 02:21-0500 Respiratory rate 15 /min Dr. Aleena London Work Phone: [facility] 05-23-2022 02:21-0500 SaO2% (BldA) [Mass fraction] 99 % Dr. Aleena London Work Phone: [facility] 05-23-2022 02:21-0500 Systolic blood pressure 122 mm[Hg] Dr. Aleena London Work Phone: [facility] 05-22-2022 23:54-0500 Body height 167.[address] Aleena London Work Phone: [facility] Work Phone: 05-22-2022 23:54-0500 Body mass index (BMI) [Ratio] 37.3 kg/m2 Dr. Aleena London Work Phone: [facility] 05-22-2022 23:54-0500 Body temperature 98 [degF] Dr. Aleena London Work Phone: [facility] 05-22-2022 23:54-0500 Body weight [address] Aleena London Work Phone: [facility] 05-04-2022 13:18-0500 Body mass index (BMI) [Ratio] 36.6 kg/m2 Dr. Aleena London Work Phone: [facility] 05-04-2022 13:18-0500 Body weight 102.[address] Aleena London Work Phone: [facility] 05-04-2022 13:18-0500 Diastolic blood pressure 82 mm[Hg] Dr. Aleena London Work Phone: [facility] 05-04-2022 13:18-0500 Systolic blood pressure 121 mm[Hg] Dr. Aleena London Work Phone: [facility] 04-20-2022 11:47-0500 Body mass index (BMI) [Ratio] 37.8 kg/m2 Dr. Aleena London Work Phone: [facility] 04-20-2022 11:47-0500 Body weight 103.[address] Aleena London Work Phone: [facility] 04-20-2022 11:47-0500 Diastolic blood pressure 71 mm[Hg] Dr. Aleena London Work Phone: [facility] 04-20-2022 11:47-0500 Systolic blood pressure 111 mm[Hg] Dr. Aleena London Work Phone: [facility] 04-18-2022 17:09-0500 Body height 165.[address] Aleena London Work Phone: [facility] Work Phone: 04-18-2022 17:09-0500 Body mass index (BMI) [Ratio] 37.6 kg/m2 Dr. Aleena London Work Phone: [facility] 04-18-2022 17:09-0500 Body temperature 97.7 [degF] Dr. Aleena London Work Phone: [facility] 04-18-2022 17:09-0500 Body weight 102.[address] Aleena London Work Phone: [facility] 04-18-2022 17:09-0500 Diastolic blood pressure 76 mm[Hg] Dr. Aleena London Work Phone: [facility] 04-18-2022 17:09-0500 Heart rate 102 /min Dr. Aleena London Work Phone: [facility] 04-18-2022 17:09-0500 Respiratory rate 14 /min Dr. Aleena London Work Phone: [facility] 04-18-2022 17:09-0500 SaO2% (BldA) [Mass fraction] 99 % Dr. Aleena London Work Phone: [facility] 04-18-2022 17:09-0500 Systolic blood pressure 123 mm[Hg] Dr. Aleena London Work Phone: [facility] 04-16-2022 09:30-0500 Body temperature 97.8 [degF] Dr. Aleena London Work Phone: [facility] 04-16-2022 09:30-0500 Diastolic blood pressure 61 mm[Hg] Dr. Aleena London Work Phone: [facility] 04-16-2022 09:30-0500 Heart rate 82 /min Dr. Aleena London Work Phone: [facility] 04-16-2022 09:30-0500 Respiratory rate 17 /min Dr. Aleena London Work Phone: [facility] 04-16-2022 09:30-0500 SaO2% (BldA) [Mass fraction] 100 % Dr. Aleena London Work Phone: [facility] 04-16-2022 09:30-0500 Systolic blood pressure 106 mm[Hg] Dr. Aleena London Work Phone: [facility] 04-16-2022 02:05-0500 Body temperature 98.8 [degF] Dr. Aleena London Work Phone: [facility] Work Phone: 04-16-2022 02:05-0500 Diastolic blood pressure 67 mm[Hg] Dr. Aleena London Work Phone: [facility] Work Phone: 04-16-2022 02:05-0500 Heart rate 93 /min Dr. Aleena London Work Phone: [facility] Work Phone: 04-16-2022 02:05-0500 Respiratory rate 18 /min Dr. Aleena London Work Phone: [facility] Work Phone: 04-16-2022 02:05-0500 SaO2% (BldA) [Mass fraction] 98 % Dr. Aleena London Work Phone: [facility] Work Phone: 04-16-2022 02:05-0500 Systolic blood pressure 125 mm[Hg] Dr. Aleena London Work Phone: [facility] Work Phone: 04-15-2022 09:48-0500 Inhaled oxygen flow rate 6 L/min Dr. Aleena London Work Phone: [facility] 04-14-2022 21:53-0500 Body height 165.[address] Aleena London Work Phone: [facility] Work Phone: 04-14-2022 21:53-0500 Body mass index (BMI) [Ratio] 37.3 kg/m2 Dr. Aleena London Work Phone: [facility] 04-14-2022 21:53-0500 Body weight 101.[address] Aleena London Work Phone: [facility] 04-12-2022 20:13-0500 Body temperature 98.1 [degF] Dr. Aleena London Work Phone: [facility] Work Phone: 04-12-2022 20:13-0500 Diastolic blood pressure 56 mm[Hg] Dr. Aleena London Work Phone: [facility] Work Phone: 04-12-2022 20:13-0500 Heart rate 76 /min Dr. Aleena London Work Phone: [facility] Work Phone: 04-12-2022 20:13-0500 Respiratory rate 15 /min Dr. Aleena London Work Phone: [facility] Work Phone: 04-12-2022 20:13-0500 SaO2% (BldA) [Mass fraction] 97 % Dr. Aleena London Work Phone: [facility] Work Phone: 04-12-2022 20:13-0500 Systolic blood pressure 98 mm[Hg] Dr. Aleena London Work Phone: [facility] Work Phone: 04-12-2022 13:43-0500 Body height 165.[address] Aleena London Work Phone: [facility] Work Phone: 04-12-2022 13:43-0500 Body mass index (BMI) [Ratio] 37.6 kg/m2 Dr. Aleena London Work Phone: [facility] Work Phone: 04-12-2022 13:43-0500 Body weight 102.[address] Aleena London Work Phone: [facility] Work Phone: 04-05-2022 09:31-0500 Body height 167.[address] Aleena London Work Phone: [facility] Work Phone: 04-05-2022 09:31-0500 Body mass index (BMI) [Ratio] 36.4 kg/m2 Dr. Aleena London Work Phone: [facility] 04-05-2022 09:31-0500 Body weight 102.[address] Aleena London Work Phone: [facility] 04-05-2022 09:31-0500 Diastolic blood pressure 74 mm[Hg] Dr. Aleena London Work Phone: [facility] 04-05-2022 09:31-0500 Systolic blood pressure 107 mm[Hg] Dr. Aleena London Work Phone: [facility] 03-30-2022 17:35-0500 Heart rate 82 /min Dr. Aleena London Work Phone: [facility] 03-30-2022 17:35-0500 Respiratory rate 15 /min Dr. Aleena London Work Phone: [facility] 03-30-2022 17:35-0500 SaO2% (BldA) [Mass fraction] 98 % Dr. Aleena London Work Phone: [facility] 03-30-2022 14:04-0500 Body mass index (BMI) [Ratio] 36.9 kg/m2 Dr. Aleena London Work Phone: [facility] 03-30-2022 14:04-0500 Body temperature 97.4 [degF] Dr. Aleean London Work Phone: [facility] 03-30-2022 14:04-0500 Body weight 103.[address] Aleena London Work Phone: [facility] 03-30-2022 14:04-0500 Diastolic blood pressure 83 mm[Hg] Dr. Aleena London Work Phone: [facility] 03-30-2022 14:04-0500 Systolic blood pressure 119 mm[Hg] Dr. Aleena London Work Phone: [facility] 03-30-2022 13:02-0500 Body mass index (BMI) [Ratio] 36.9 kg/m2 Dr. Aleena London Work Phone: [facility] 03-30-2022 13:02-0500 Body weight 103.[address] Aleena London Work Phone: [facility] 03-30-2022 13:02-0500 Diastolic blood pressure 73 mm[Hg] Dr. Aleena London Work Phone: [facility] 03-30-2022 13:02-0500 Systolic blood pressure 118 mm[Hg] Dr. Aleena London Work Phone: [facility] 03-23-2022 11:26-0400 Body temperature 98.2 [degF] Dr. Aleena London Work Phone: [facility] 03-23-2022 11:26-0400 Diastolic blood pressure 65 mm[Hg] Dr. Aleena London Work Phone: [facility] 03-23-2022 11:26-0400 Heart rate 66 /min Dr. Aleena London Work Phone: [facility] 03-23-2022 11:26-0400 Respiratory rate 20 /min Dr. Aleena London Work Phone: [facility] 03-23-2022 11:26-0400 SaO2% (BldA) [Mass fraction] 97 % Dr. Aleena Lonodn Work Phone: [facility] 03-23-2022 11:26-0400 Systolic blood pressure 106 mm[Hg] Dr. Aleena London Work Phone: [facility] 03-22-2022 18:30-0400 Inhaled oxygen flow rate 4 L/min Dr. Aleena London Work Phone: [facility] 03-22-2022 17:41-0400 Body height 167.[address] Aleena London Work Phone: [facility] Work Phone: 03-22-2022 17:41-0400 Body mass index (BMI) [Ratio] 38.4 kg/m2 Dr. Aleena London Work Phone: [facility] 03-22-2022 17:41-0400 Body weight [address] Aleena London Work Phone: [facility] 03-12-2022 12:29-0400 Body height 167.[address] Aleena London Work Phone: [facility] Work Phone: 03-12-2022 12:29-0400 Body mass index (BMI) [Ratio] 37.9 kg/m2 Dr. Aleena London Work Phone: [facility] 03-12-2022 12:29-0400 Body temperature 98.1 [degF] Dr. Aleena London Work Phone: [facility] 03-12-2022 12:29-0400 Body weight 106.[address] Aleena London Work Phone: [facility] 03-12-2022 12:29-0400 Diastolic blood pressure 106 mm[Hg] Dr. Aleena London Work Phone: [facility] 03-12-2022 12:29-0400 Heart rate 119 /min Dr. Aleena London Work Phone: [facility] 03-12-2022 12:29-0400 Respiratory rate 16 /min Dr. Aleena London Work Phone: [facility] 03-12-2022 12:29-0400 SaO2% (BldA) [Mass fraction] 98 % Dr. Aleena London Work Phone: [facility] 03-12-2022 12:29-0400 Systolic blood pressure 157 mm[Hg] Dr. Aleena London Work Phone: [facility] 03-04-2022 16:11-0400 Heart rate 77 /min Dr. Aleena Londno Work Phone: [facility] 03-04-2022 16:11-0400 Respiratory rate 15 /min Dr. Aleena London Work Phone: [facility] 03-04-2022 16:11-0400 SaO2% (BldA) [Mass fraction] 98 % Dr. Aleena London Work Phone: [facility] 03-04-2022 13:28-0400 Body height 165.[address] Aleena London Work Phone: [facility] Work Phone: 03-04-2022 13:28-0400 Body mass index (BMI) [Ratio] 38.5 kg/m2 Dr. Aleena London Work Phone: [facility] 03-04-2022 13:28-0400 Body temperature 97.2 [degF] Dr. Aleena London Work Phone: [facility] 03-04-2022 13:28-0400 Body weight 104.[address] Aleena London Work Phone: [facility] 03-04-2022 13:28-0400 Diastolic blood pressure 91 mm[Hg] Dr. Aleena London Work Phone: [facility] 03-04-2022 13:28-0400 Systolic blood pressure 156 mm[Hg] Dr. Aleena London Work Phone: [facility] 03-02-2022 13:00-0400 Body mass index (BMI) [Ratio] 37.8 kg/m2 Dr. Aleena London Work Phone: [facility] 03-02-2022 13:00-0400 Body temperature 98.8 [degF] Dr. Aleena London Work Phone: [facility] 03-02-2022 13:00-0400 Body weight 106.[address] Aleena London Work Phone: [facility] 03-02-2022 13:00-0400 Diastolic blood pressure 82 mm[Hg] Dr. Aleena London Work Phone: [facility] 03-02-2022 13:00-0400 Heart rate 89 /min Dr. Aleena London Work Phone: [facility] 03-02-2022 13:00-0400 Respiratory rate 14 /min Dr. Aleena London Work Phone: [facility] 03-02-2022 13:00-0400 SaO2% (BldA) [Mass fraction] 97 % Dr. Aleena London Work Phone: [facility] 03-02-2022 13:00-0400 Systolic blood pressure 134 mm[Hg] Dr. Aleena London Work Phone: [facility] 02-28-2022 11:09-0400 Body temperature 98.7 [degF] Dr. Aleena London Work Phone: [facility] 02-28-2022 11:09-0400 Diastolic blood pressure 74 mm[Hg] Dr. Aleena London Work Phone: [facility] 02-28-2022 11:09-0400 Heart rate 112 /min Dr. Aleena London Work Phone: [facility] 02-28-2022 11:09-0400 Respiratory rate 14 /min Dr. Aleena London Work Phone: [facility] 02-28-2022 11:09-0400 SaO2% (BldA) [Mass fraction] 99 % Dr. Aleena London Work Phone: [facility] 02-28-2022 11:09-0400 Systolic blood pressure 126 mm[Hg] Dr. Aleena London Work Phone: [facility] 02-23-2022 10:26-0400 Body height 167.[address] Aleena London Work Phone: [facility] Work Phone: 02-23-2022 10:26-0400 Body mass index (BMI) [Ratio] 37.8 kg/m2 Dr. Aleena London Work Phone: [facility] 02-23-2022 10:26-0400 Body weight 106.[address] Aleena London Work Phone: [facility] 02-23-2022 10:26-0400 Diastolic blood pressure 83 mm[Hg] Dr. Aleena London Work Phone: [facility] 02-23-2022 10:26-0400 Heart rate 80 /min Dr. Aleena London Work Phone: [facility] 02-23-2022 10:26-0400 SaO2% (BldA) [Mass fraction] 96 % Dr. Aleena London Work Phone: [facility] 02-23-2022 10:26-0400 Systolic blood pressure 126 mm[Hg] Dr. Aleena London Work Phone: [facility] 02-15-2022 11:31-0400 Body mass index (BMI) [Ratio] 37.6 kg/m2 Dr. Aleena London Work Phone: [facility] 02-15-2022 11:31-0400 Body temperature 98.1 [degF] Dr. Aleena London Work Phone: [facility] 02-15-2022 11:31-0400 Body weight 105.[address] Aleena London Work Phone: [facility] 02-15-2022 11:31-0400 Diastolic blood pressure 85 mm[Hg] Dr. Aleena London Work Phone: [facility] 02-15-2022 11:31-0400 Heart rate 96 /min Dr. Aleena London Work Phone: [facility] 02-15-2022 11:31-0400 Respiratory rate 18 /min Dr. Aleena London Work Phone: [facility] 02-15-2022 11:31-0400 SaO2% (BldA) [Mass fraction] 100 % Dr. Aleena London Work Phone: [facility] 02-15-2022 11:31-0400 Systolic blood pressure 149 mm[Hg] Dr. Aleena London Work Phone: [facility] 02-15-2022 08:52-0400 Body mass index (BMI) [Ratio] 37.5 kg/m2 Dr. Aleena London Work Phone: [facility] 02-15-2022 08:52-0400 Body weight 105.[address] Aleena London Work Phone: [facility] 02-15-2022 08:52-0400 Diastolic blood pressure 85 mm[Hg] Dr. Aleena London Work Phone: [facility] 02-15-2022 08:52-0400 Systolic blood pressure 120 mm[Hg] Dr. Aleena London Work Phone: [facility] 02-08-2022 14:00-0400 Body mass index (BMI) [Ratio] 37.5 kg/m2 Dr. Aleena London Work Phone: [facility] Work Phone: 02-08-2022 14:00-0400 Body temperature 99 [degF] Dr. Aleena London Work Phone: [facility] Work Phone: 02-08-2022 14:00-0400 Body weight 105.[address] Aleena London Work Phone: [facility] Work Phone: 02-08-2022 14:00-0400 Diastolic blood pressure 86 mm[Hg] Dr. Aleena London Work Phone: [facility] Work Phone: 02-08-2022 14:00-0400 Heart rate 89 /min Dr. Aleena London Work Phone: [facility] Work Phone: 02-08-2022 14:00-0400 Respiratory rate 14 /min Dr. Aleena London Work Phone: [facility] Work Phone: 02-08-2022 14:00-0400 SaO2% (BldA) [Mass fraction] 99 % Dr. Aleena London Work Phone: [facility] Work Phone: 02-08-2022 14:00-0400 Systolic blood pressure 132 mm[Hg] Dr. Aleena London Work Phone: [facility] Work Phone: 12-30-2021 15:28-0400 Body height 167.[address] Aleena London Work Phone: [facility] Work Phone: 12-30-2021 15:28-0400 Body mass index (BMI) [Ratio] 37.5 kg/m2 Dr. Aleena London Work Phone: [facility] Work Phone: 12-30-2021 15:28-0400 Body weight 105.[address] Aleena London Work Phone: [facility] Work Phone: 12-30-2021 15:28-0400 Diastolic blood pressure 82 mm[Hg] Dr. Aleena London Work Phone: [facility] Work Phone: 12-30-2021 15:28-0400 Heart rate 87 /min Dr. Aleena London Work Phone: [facility] Work Phone: 12-30-2021 15:28-0400 SaO2% (BldA) [Mass fraction] 97 % Dr. Aleena London Work Phone: [facility] Work Phone: 12-30-2021 15:28-0400 Systolic blood pressure 138 mm[Hg] Dr. Aleena London Work Phone: [facility] Work Phone: 12-24-2021 00:35-0400 Heart rate 89 /min Dr. Aleena London Work Phone: [facility] Work Phone: 12-24-2021 00:35-0400 Respiratory rate 16 /min Dr. Aleena London Work Phone: [facility] Work Phone: 12-24-2021 00:35-0400 SaO2% (BldA) [Mass fraction] 99 % Dr. Aleena London Work Phone: [facility] Work Phone: 12-23-2021 22:19-0400 Body height 167.[address] Aleena London Work Phone: [facility] Work Phone: 12-23-2021 22:19-0400 Body mass index (BMI) [Ratio] 37.4 kg/m2 Dr. Aleena London Work Phone: [facility] Work Phone: 12-23-2021 22:19-0400 Body temperature 98.1 [degF] Dr. Aleena London Work Phone: [facility] Work Phone: 12-23-2021 22:19-0400 Body weight 105.[address] Aleena London Work Phone: [facility] Work Phone: 12-23-2021 22:19-0400 Diastolic blood pressure 97 mm[Hg] Dr. Aleena London Work Phone: [facility] Work Phone: 12-23-2021 22:19-0400 Systolic blood pressure 139 mm[Hg] Dr. Aleena London Work Phone: [facility] Work Phone: 12-14-2021 10:42-0400 Body mass index (BMI) [Ratio] 37.5 kg/m2 Dr. Aleena London Work Phone: [facility] Work Phone: 12-14-2021 10:42-0400 Body weight 105.[address] Aleena London Work Phone: [facility] Work Phone: 12-14-2021 10:42-0400 Diastolic blood pressure 88 mm[Hg] Dr. Aleena London Work Phone: [facility] Work Phone: 12-14-2021 10:42-0400 Systolic blood pressure 120 mm[Hg] Dr. Aleena London Work Phone: [facility] Work Phone: 11-27-2021 03:46-0400 Diastolic blood pressure 75 mm[Hg] Dr. Aleena London Work Phone: [facility] Work Phone: 11-27-2021 03:46-0400 Heart rate 70 /min Dr. Aleena London Work Phone: [facility] Work Phone: 11-27-2021 03:46-0400 Respiratory rate 15 /min Dr. Aleena London Work Phone: [facility] Work Phone: 11-27-2021 03:46-0400 Systolic blood pressure 125 mm[Hg] Dr. Aleena London Work Phone: [facility] Work Phone: 11-27-2021 01:16-0400 Body height 167.[address] Aleena London Work Phone: [facility] Work Phone: 11-27-2021 01:16-0400 Body mass index (BMI) [Ratio] 38.6 kg/m2 Dr. Aleena London Work Phone: [facility] Work Phone: 11-27-2021 01:16-0400 Body temperature 98.3 [degF] Dr. Aleena London Work Phone: [facility] Work Phone: 11-27-2021 01:16-0400 Body weight 108.[address] Aleena London Work Phone: [facility] Work Phone: 11-27-2021 01:16-0400 SaO2% (BldA) [Mass fraction] 99 % Dr. Aleena London Work Phone: [facility] Work Phone: 11-18-2021 15:03-0400 Body mass index (BMI) [Ratio] 37.8 kg/m2 Dr. Aleena London Work Phone: [facility] Work Phone: 11-18-2021 15:03-0400 Body temperature 98.9 [degF] Dr. Aleena London Work Phone: [facility] Work Phone: 11-18-2021 15:03-0400 Body weight 106.[address] Aleena London Work Phone: [facility] Work Phone: 11-18-2021 15:03-0400 Diastolic blood pressure 78 mm[Hg] Dr. Aleena London Work Phone: [facility] Work Phone: 11-18-2021 15:03-0400 Heart rate 83 /min Dr. Aleena London Work Phone: [facility] Work Phone: 11-18-2021 15:03-0400 Respiratory rate 16 /min Dr. Aleena London Work Phone: [facility] Work Phone: 11-18-2021 15:03-0400 SaO2% (BldA) [Mass fraction] 98 % Dr. Aleena London Work Phone: [facility] Work Phone: 11-18-2021 15:03-0400 Systolic blood pressure 126 mm[Hg] Dr. Aleena London Work Phone: [facility] Work Phone: 11-18-2021 09:43-0400 Body mass index (BMI) [Ratio] 37.6 kg/m2 Dr. Aleena London Work Phone: [facility] Work Phone: 11-18-2021 09:43-0400 Body temperature 98.7 [degF] Dr. Aleena London Work Phone: [facility] Work Phone: 11-18-2021 09:43-0400 Body weight 105.[address] Aleena London Work Phone: [facility] Work Phone: 11-18-2021 09:43-0400 Diastolic blood pressure 76 mm[Hg] Dr. Aleena London Work Phone: [facility] Work Phone: 11-18-2021 09:43-0400 Heart rate 81 /min Dr. Aleena London Work Phone: [facility] Work Phone: 11-18-2021 09:43-0400 Respiratory rate 16 /min Dr. Aleena London Work Phone: [facility] Work Phone: 11-18-2021 09:43-0400 SaO2% (BldA) [Mass fraction] 98 % Dr. Aleena London Work Phone: [facility] Work Phone: 11-18-2021 09:43-0400 Systolic blood pressure 118 mm[Hg] Dr. Aleena London Work Phone: [facility] Work Phone: 11-01-2021 13:12-0400 Body mass index (BMI) [Ratio] 38.2 kg/m2 Dr. Aleena London Work Phone: [facility] Work Phone: 11-01-2021 13:12-0400 Body temperature 99 [degF] Dr. Aleena London Work Phone: [facility] Work Phone: 11-01-2021 13:12-0400 Body weight 107.[address] Aleena London Work Phone: [facility] Work Phone: 11-01-2021 13:12-0400 Diastolic blood pressure 72 mm[Hg] Dr. Aleena London Work Phone: [facility] Work Phone: 11-01-2021 13:12-0400 Heart rate 82 /min Dr. Aleena London Work Phone: [facility] Work Phone: 11-01-2021 13:12-0400 Respiratory rate 16 /min Dr. Aleena London Work Phone: [facility] Work Phone: 11-01-2021 13:12-0400 SaO2% (BldA) [Mass fraction] 98 % Dr. Aleena London Work Phone: [facility] Work Phone: 11-01-2021 13:12-0400 Systolic blood pressure 118 mm[Hg] Dr. Aleena London Work Phone: [facility] Work Phone: 10-29-2021 17:52-0400 Body temperature 100.1 [degF] Dr. Aleena London Work Phone: [facility] Work Phone: 10-29-2021 17:52-0400 Diastolic blood pressure 80 mm[Hg] Dr. Aleena London Work Phone: [facility] Work Phone: 10-29-2021 17:52-0400 Heart rate 105 /min Dr. Aleena London Work Phone: [facility] Work Phone: 10-29-2021 17:52-0400 Respiratory rate 15 /min Dr. Aleena London Work Phone: [facility] Work Phone: 10-29-2021 17:52-0400 SaO2% (BldA) [Mass fraction] 99 % Dr. Aleena London Work Phone: [facility] Work Phone: 10-29-2021 17:52-0400 Systolic blood pressure 150 mm[Hg] Dr. Aleena London Work Phone: [facility] Work Phone: 10-29-2021 17:52-0400 Body temperature 100.1 [degF] Dr. Aleena London Work Phone: [facility] Work Phone: 10-29-2021 17:52-0400 Diastolic blood pressure 80 mm[Hg] Dr. Aleena London Work Phone: [facility] Work Phone: 10-29-2021 17:52-0400 Heart rate 105 /min Dr. Aleena London Work Phone: [facility] Work Phone: 10-29-2021 17:52-0400 Respiratory rate 15 /min Dr. Aleena London Work Phone: [facility] Work Phone: 10-29-2021 17:52-0400 SaO2% (BldA) [Mass fraction] 99 % Dr. Aleena London Work Phone: [facility] Work Phone: 10-29-2021 17:52-0400 Systolic blood pressure 150 mm[Hg] Dr. Aleena London Work Phone: [facility] Work Phone: 10-15-2021 11:07-0400 Body mass index (BMI) [Ratio] 37.4 kg/m2 Dr. Aleena London Work Phone: [facility] Work Phone: 10-15-2021 11:07-0400 Body temperature 98.1 [degF] Dr. Aleena London Work Phone: [facility] Work Phone: 10-15-2021 11:07-0400 Body weight 105.[address] Aleena London Work Phone: [facility] Work Phone: 10-15-2021 11:07-0400 Diastolic blood pressure 74 mm[Hg] Dr. Aleena London Work Phone: [facility] Work Phone: 10-15-2021 11:07-0400 Heart rate 70 /min Dr. Aleena London Work Phone: [facility] Work Phone: 10-15-2021 11:07-0400 Respiratory rate 16 /min Dr. Aleena London Work Phone: [facility] Work Phone: 10-15-2021 11:07-0400 SaO2% (BldA) [Mass fraction] 98 % Dr. Aleena London Work Phone: [facility] Work Phone: 10-15-2021 11:07-0400 Systolic blood pressure 108 mm[Hg] Dr. Aleena London Work Phone: [facility] Work Phone: 10-15-2021 11:07-0400 Body height 167.[address] Aleena London Work Phone: [facility] Work Phone: 10-15-2021 11:07-0400 Body mass index (BMI) [Ratio] 37.4 kg/m2 Dr. Aleena London Work Phone: [facility] Work Phone: 10-15-2021 11:07-0400 Body temperature 98.1 [degF] Dr. Aleena London Work Phone: [facility] Work Phone: 10-15-2021 11:07-0400 Body weight 105.[address] Aleena London Work Phone: [facility] Work Phone: 10-15-2021 11:07-0400 Diastolic blood pressure 74 mm[Hg] Dr. Aleena London Work Phone: [facility] Work Phone: 10-15-2021 11:07-0400 Heart rate 70 /min Dr. Aleena London Work Phone: [facility] Work Phone: 10-15-2021 11:07-0400 Respiratory rate 16 /min Dr. Aleena London Work Phone: [facility] Work Phone: 10-15-2021 11:07-0400 SaO2% (BldA) [Mass fraction] 98 % Dr. Aleena London Work Phone: [facility] Work Phone: 10-15-2021 11:07-0400 Systolic blood pressure 108 mm[Hg] Dr. Aleena London Work Phone: [facility] Work Phone: 10-13-2021 09:05-0400 Body temperature 98.6 [degF] Dr. Aleena London Work Phone: [facility] Work Phone: 10-13-2021 09:05-0400 Diastolic blood pressure 78 mm[Hg] Dr. Aleena London Work Phone: [facility] Work Phone: 10-13-2021 09:05-0400 Heart rate 86 /min Dr. Aleena London Work Phone: [facility] Work Phone: 10-13-2021 09:05-0400 Respiratory rate 14 /min Dr. Aleena London Work Phone: [facility] Work Phone: 10-13-2021 09:05-0400 SaO2% (BldA) [Mass fraction] 97 % Dr. Aleena London Work Phone: [facility] Work Phone: 10-13-2021 09:05-0400 Systolic blood pressure 126 mm[Hg] Dr. Aleena London Work Phone: [facility] Work Phone: 10-13-2021 09:05-0400 Body temperature 98.6 [degF] Dr. Aleena London Work Phone: [facility] Work Phone: 10-13-2021 09:05-0400 Diastolic blood pressure 78 mm[Hg] Dr. Aleena London Work Phone: [facility] Work Phone: 10-13-2021 09:05-0400 Heart rate 86 /min Dr. Aleena London Work Phone: [facility] Work Phone: 10-13-2021 09:05-0400 Respiratory rate 14 /min Dr. Aleena London Work Phone: [facility] Work Phone: 10-13-2021 09:05-0400 SaO2% (BldA) [Mass fraction] 97 % Dr. Aleena London Work Phone: [facility] Work Phone: 10-13-2021 09:05-0400 Systolic blood pressure 126 mm[Hg] Dr. Aleena London Work Phone: [facility] Work Phone: 10-11-2021 10:37-0400 Body mass index (BMI) [Ratio] 37.5 kg/m2 Dr. Aleena London Work Phone: [facility] Work Phone: 10-11-2021 10:37-0400 Body weight 105.[address] Aleena London Work Phone: [facility] Work Phone: 10-11-2021 10:37-0400 Diastolic blood pressure 82 mm[Hg] Dr. Aleena London Work Phone: [facility] Work Phone: 10-11-2021 10:37-0400 Systolic blood pressure 122 mm[Hg] Dr. Aleena London Work Phone: [facility] Work Phone: 10-11-2021 10:37-0400 Body height 167.[address] Aleena London Work Phone: [facility] Work Phone: 10-11-2021 10:37-0400 Body mass index (BMI) [Ratio] 37.5 kg/m2 Dr. Aleena London Work Phone: [facility] Work Phone: 10-11-2021 10:37-0400 Body weight 105.[address] Aleena London Work Phone: [facility] Work Phone: 10-11-2021 10:37-0400 Diastolic blood pressure 82 mm[Hg] Dr. Aleena London Work Phone: [facility] Work Phone: 10-11-2021 10:37-0400 Systolic blood pressure 122 mm[Hg] Dr. Aleena London Work Phone: [facility] Work Phone: 09-27-2021 14:08-0400 Body mass index (BMI) [Ratio] 37.8 kg/m2 Dr. Aleena London Work Phone: [facility] Work Phone: 09-27-2021 14:08-0400 Body weight 106.[address] Aleena London Work Phone: [facility] Work Phone: 09-27-2021 14:08-0400 Diastolic blood pressure 78 mm[Hg] Dr. Aleena London Work Phone: [facility] [facility] Work Phone: 09-27-2021 14:08-0400 Heart rate 74 /min Dr. Aleena London Work Phone: [facility] Work Phone: 09-27-2021 14:08-0400 Respiratory rate 18 /min Dr. Aleena London Work Phone: [facility] Work Phone: 09-27-2021 14:08-0400 SaO2% (BldA) [Mass fraction] 98 % Dr. Aleena London Work Phone: [facility] Work Phone: 09-27-2021 14:08-0400 Systolic blood pressure 114 mm[Hg] Dr. Aleena London Work Phone: [facility] Work Phone: 09-27-2021 14:08-0400 Body mass index (BMI) [Ratio] 37.8 kg/m2 Dr. Aleena London Work Phone: [facility] Work Phone: 09-27-2021 14:08-0400 Body weight 106.[address] Aleena London Work Phone: [facility] Work Phone: 09-27-2021 14:08-0400 Diastolic blood pressure 78 mm[Hg] Dr. Aleena London Work Phone: [facility] Work Phone: 09-27-2021 14:08-0400 Heart rate 74 /min Dr. Aleena London Work Phone: [facility] Work Phone: 09-27-2021 14:08-0400 Respiratory rate 18 /min Dr. Aleena London Work Phone: [facility] Work Phone: 09-27-2021 14:08-0400 SaO2% (BldA) [Mass fraction] 98 % Dr. Aleena London Work Phone: [facility] Work Phone: 09-27-2021 14:08-0400 Systolic blood pressure 114 mm[Hg] Dr. Aleena London Work Phone: [facility] Work Phone: 09-22-2021 14:55-0400 Body mass index (BMI) [Ratio] 37.9 kg/m2 Dr. Aleena London Work Phone: [facility] Work Phone: 09-22-2021 14:55-0400 Body temperature 98.7 [degF] Dr. Aleena London Work Phone: [facility] Work Phone: 09-22-2021 14:55-0400 Body weight 106.[address] Aleena London Work Phone: [facility] Work Phone: 09-22-2021 14:55-0400 Diastolic blood pressure 82 mm[Hg] Dr. Aleena London Work Phone: [facility] Work Phone: 09-22-2021 14:55-0400 Heart rate 88 /min Dr. Aleena London Work Phone: [facility] Work Phone: 09-22-2021 14:55-0400 Respiratory rate 14 /min Dr. Aleena London Work Phone: [facility] Work Phone: 09-22-2021 14:55-0400 SaO2% (BldA) [Mass fraction] 99 % Dr. Aleena London Work Phone: [facility] Work Phone: 09-22-2021 14:55-0400 Systolic blood pressure 114 mm[Hg] Dr. Aleena London Work Phone: [facility] Work Phone: 09-22-2021 14:55-0400 Body height 167.[address] Aleena London Work Phone: [facility] Work Phone: 09-22-2021 14:55-0400 Body mass index (BMI) [Ratio] 37.9 kg/m2 Dr. Aleena London Work Phone: [facility] Work Phone: 09-22-2021 14:55-0400 Body temperature 98.7 [degF] Dr. Aleena London Work Phone: [facility] Work Phone: 09-22-2021 14:55-0400 Body weight 106.[address] Aleena London Work Phone: [facility] Work Phone: 09-22-2021 14:55-0400 Diastolic blood pressure 82 mm[Hg] Dr. Aleena London Work Phone: [facility] Work Phone: 09-22-2021 14:55-0400 Heart rate 88 /min Dr. Aleena London Work Phone: [facility] Work Phone: 09-22-2021 14:55-0400 Respiratory rate 14 /min Dr. Aleena London Work Phone: [facility] Work Phone: 09-22-2021 14:55-0400 SaO2% (BldA) [Mass fraction] 99 % Dr. Aleena London Work Phone: [facility] Work Phone: 09-22-2021 14:55-0400 Systolic blood pressure 114 mm[Hg] Dr. Aleena London Work Phone: [facility] Work Phone: 09-15-2021 08:29-0400 Body mass index (BMI) [Ratio] 37.9 kg/m2 Dr. Aleena London Work Phone: [facility] Work Phone: 09-15-2021 08:29-0400 Body weight 106.[address] Aleena London Work Phone: [facility] Work Phone: 09-15-2021 08:29-0400 Diastolic blood pressure 82 mm[Hg] Dr. Aleena London Work Phone: [facility] Work Phone: 09-15-2021 08:29-0400 Heart rate 87 /min Dr. Aleena London Work Phone: [facility] Work Phone: 09-15-2021 08:29-0400 SaO2% (BldA) [Mass fraction] 98 % Dr. Aleena London Work Phone: [facility] Work Phone: 09-15-2021 08:29-0400 Systolic blood pressure 117 mm[Hg] Dr. Aleena London Work Phone: [facility] Work Phone: 09-15-2021 08:29-0400 Body mass index (BMI) [Ratio] 37.9 kg/m2 Dr. Aleena London Work Phone: [facility] Work Phone: 09-15-2021 08:29-0400 Body weight 106.[address] Aleena London Work Phone: [facility] Work Phone: 09-15-2021 08:29-0400 Diastolic blood pressure 82 mm[Hg] Dr. Aleena London Work Phone: [facility] Work Phone: 09-15-2021 08:29-0400 Heart rate 87 /min Dr. Aleena London Work Phone: [facility] Work Phone: 09-15-2021 08:29-0400 SaO2% (BldA) [Mass fraction] 98 % Dr. Aleena London Work Phone: [facility] Work Phone: 09-15-2021 08:29-0400 Systolic blood pressure 117 mm[Hg] Dr. Aleena London Work Phone: [facility] Work Phone: 09-09-2021 09:58-0400 Body mass index (BMI) [Ratio] 37.9 kg/m2 Dr. Aleena London Work Phone: [facility] Work Phone: 09-09-2021 09:58-0400 Body weight 106.[address] Aleena London Work Phone: [facility] Work Phone: 09-09-2021 09:58-0400 Diastolic blood pressure 79 mm[Hg] Dr. Aleena London Work Phone: [facility] Work Phone: 09-09-2021 09:58-0400 Systolic blood pressure 120 mm[Hg] Dr. Aleena London Work Phone: [facility] Work Phone: 09-09-2021 09:58-0400 Body mass index (BMI) [Ratio] 37.9 kg/m2 Dr. Aleena London Work Phone: [facility] Work Phone: 09-09-2021 09:58-0400 Body weight 106.[address] Aleena London Work Phone: [facility] Work Phone: 09-09-2021 09:58-0400 Diastolic blood pressure 79 mm[Hg] Dr. Aleena London Work Phone: [facility] Work Phone: 09-09-2021 09:58-0400 Systolic blood pressure 120 mm[Hg] Dr. Aleena London Work Phone: [facility] Work Phone: 09-07-2021 11:24-0400 Body temperature 98.2 [degF] Dr. Aleena London Work Phone: [facility] Work Phone: 09-07-2021 11:24-0400 Diastolic blood pressure 86 mm[Hg] Dr. Aleena London Work Phone: [facility] Work Phone: 09-07-2021 11:24-0400 Heart rate 109 /min Dr. Aleena London Work Phone: [facility] Work Phone: 09-07-2021 11:24-0400 Respiratory rate 16 /min Dr. Aleena London Work Phone: [facility] Work Phone: 09-07-2021 11:24-0400 SaO2% (BldA) [Mass fraction] 99 % Dr. Aleena London Work Phone: [facility] Work Phone: 09-07-2021 11:24-0400 Systolic blood pressure 132 mm[Hg] Dr. Aleena London Work Phone: [facility] Work Phone: 09-07-2021 11:24-0400 Body temperature 98.2 [degF] Dr. Aleena London Work Phone: [facility] Work Phone: 09-07-2021 11:24-0400 Diastolic blood pressure 86 mm[Hg] Dr. Aleena London Work Phone: [facility] Work Phone: 09-07-2021 11:24-0400 Heart rate 109 /min Dr. Aleena London Work Phone: [facility] Work Phone: 09-07-2021 11:24-0400 Respiratory rate 16 /min Dr. Aleena London Work Phone: [facility] Work Phone: 09-07-2021 11:24-0400 SaO2% (BldA) [Mass fraction] 99 % Dr. Aleena London Work Phone: [facility] Work Phone: 09-07-2021 11:24-0400 Systolic blood pressure 132 mm[Hg] Dr. Aleena London Work Phone: [facility] Work Phone: 08-25-2021 22:48-0400 Diastolic blood pressure 83 mm[Hg] Dr. Aleena London Work Phone: [facility] Work Phone: 08-25-2021 22:48-0400 Heart rate 98 /min Dr. Aleena London Work Phone: [facility] Work Phone: 08-25-2021 22:48-0400 SaO2% (BldA) [Mass fraction] 77 % Dr. Aleena London Work Phone: [facility] Work Phone: 08-25-2021 22:48-0400 Systolic blood pressure 114 mm[Hg] Dr. Aleena London Work Phone: [facility] Work Phone: 08-25-2021 22:11-0400 Body temperature 98.2 [degF] Dr. Aleena London Work Phone: [facility] Work Phone: 08-25-2021 22:01-0400 Body height 167.[address] Aleena London Work Phone: [facility] Work Phone: 08-25-2021 22:01-0400 Body mass index (BMI) [Ratio] 38 kg/m2 Dr. Aleena London Work Phone: [facility] Work Phone: 08-25-2021 22:01-0400 Body weight 107.[address] Aleena London Work Phone: [facility] Work Phone: 08-25-2021 22:01-0400 Respiratory rate 16 /min Dr. Aleena London Work Phone: [facility] Work Phone: 08-20-2021 18:00-0400 Body temperature 98.4 [degF] Dr. Aleena London Work Phone: [facility] Work Phone: 08-20-2021 18:00-0400 Diastolic blood pressure 80 mm[Hg] Dr. Aleena London Work Phone: [facility] Work Phone: 08-20-2021 18:00-0400 Heart rate 80 /min Dr. Aleena London Work Phone: [facility] Work Phone: 08-20-2021 18:00-0400 Respiratory rate 16 /min Dr. Aleena London Work Phone: [facility] Work Phone: 08-20-2021 18:00-0400 SaO2% (BldA) [Mass fraction] 100 % Dr. Aleena London Work Phone: [facility] Work Phone: 08-20-2021 18:00-0400 Systolic blood pressure 142 mm[Hg] Dr. Aleena London Work Phone: [facility] Work Phone: 08-20-2021 15:33-0400 Body height 167.[address] Aleena London Work Phone: [facility] Work Phone: 08-20-2021 15:33-0400 Body mass index (BMI) [Ratio] 38 kg/m2 Dr. Aleena London Work Phone: [facility] Work Phone: 08-20-2021 15:33-0400 Body weight 106.[address] Aleena London Work Phone: [facility] Work Phone: 08-11-2021 15:29-0400 Diastolic blood pressure 80 mm[Hg] Dr. Aleena London Work Phone: [facility] Work Phone: 08-11-2021 15:29-0400 Heart rate 90 /min Dr. Aleena London Work Phone: [facility] Work Phone: 08-11-2021 15:29-0400 Systolic blood pressure 120 mm[Hg] Dr. Aleena London Work Phone: [facility] Work Phone: 08-11-2021 15:29-0400 Diastolic blood pressure 80 mm[Hg] Dr. Aleena London Work Phone: [facility] Work Phone: 08-11-2021 15:29-0400 Heart rate 90 /min Dr. Aleena London Work Phone: [facility] Work Phone: 08-11-2021 15:29-0400 Systolic blood pressure 120 mm[Hg] Dr. Aleena London Work Phone: [facility] Work Phone: 08-11-2021 15:26-0400 Body mass index (BMI) [Ratio] 38.5 kg/m2 Dr. Aleena London Work Phone: [facility] Work Phone: 08-11-2021 15:26-0400 Body temperature 97.6 [degF] Dr. Aleena London Work Phone: [facility] Work Phone: 08-11-2021 15:26-0400 Body weight 108.[address] Aleena London Work Phone: [facility] Work Phone: 08-11-2021 15:26-0400 SaO2% (BldA) [Mass fraction] 98 % Dr. Aleena London Work Phone: [facility] Work Phone: 08-11-2021 15:26-0400 Body mass index (BMI) [Ratio] 38.5 kg/m2 Dr. Aleena London Work Phone: [facility] Work Phone: 08-11-2021 15:26-0400 Body temperature 97.6 [degF] Dr. Aleena London Work Phone: [facility] Work Phone: 08-11-2021 15:26-0400 Body weight 108.[address] Aleena London Work Phone: [facility] Work Phone: 08-11-2021 15:26-0400 SaO2% (BldA) [Mass fraction] 98 % Dr. Aleena London Work Phone: [facility] Work Phone: 08-09-2021 11:09-0400 Body mass index (BMI) [Ratio] 38.5 kg/m2 Dr. Aleena London Work Phone: [facility] Work Phone: 08-09-2021 11:09-0400 Body weight 108.[address] Aleena London Work Phone: [facility] Work Phone: 08-09-2021 11:09-0400 Diastolic blood pressure 78 mm[Hg] Dr. Aleena London Work Phone: [facility] Work Phone: 08-09-2021 11:09-0400 Systolic blood pressure 110 mm[Hg] Dr. Aleena London Work Phone: [facility] Work Phone: 08-09-2021 11:09-0400 Body mass index (BMI) [Ratio] 38.5 kg/m2 Dr. Aleena London Work Phone: [facility] Work Phone: 08-09-2021 11:09-0400 Body weight 108.[address] Aleena London Work Phone: [facility] Work Phone: 08-09-2021 11:09-0400 Diastolic blood pressure 78 mm[Hg] Dr. Aleena London Work Phone: [facility] Work Phone: 08-09-2021 11:09-0400 Systolic blood pressure 110 mm[Hg] Dr. Aleena London Work Phone: [facility] Work Phone: 07-15-2021 09:03-0500 Body mass index (BMI) [Ratio] 38.2 kg/m2 Dr. Aleena London Work Phone: [facility] Work Phone: 07-15-2021 09:03-0500 Body weight 107.[address] Aleena London Work Phone: [facility] Work Phone: 07-15-2021 09:03-0500 Diastolic blood pressure 88 mm[Hg] Dr. Aleena London Work Phone: [facility] Work Phone: 07-15-2021 09:03-0500 Heart rate 76 /min Dr. Aleena London Work Phone: [facility] Work Phone: 07-15-2021 09:03-0500 Respiratory rate 16 /min Dr. Aleena London Work Phone: [facility] Work Phone: 07-15-2021 09:03-0500 Systolic blood pressure 120 mm[Hg] Dr. Aleena London Work Phone: [facility] Work Phone: 06-29-2021 10:05-0500 Body mass index (BMI) [Ratio] 39.1 kg/m2 Dr. Aleena London Work Phone: [facility] Work Phone: 06-29-2021 10:05-0500 Body weight 109.[address] Aleena London Work Phone: [facility] Work Phone: 06-29-2021 10:05-0500 Diastolic blood pressure 74 mm[Hg] Dr. Aleena London Work Phone: [facility] Work Phone: 06-29-2021 10:05-0500 Heart rate 91 /min Dr. Aleena London Work Phone: [facility] Work Phone: 06-29-2021 10:05-0500 Respiratory rate 18 /min Dr. Aleena London Work Phone: [facility] Work Phone: 06-29-2021 10:05-0500 SaO2% (BldA) [Mass fraction] 96 % Dr. Aleena London Work Phone: [facility] Work Phone: 06-29-2021 10:05-0500 Systolic blood pressure 115 mm[Hg] Dr. Aleena London Work Phone: [facility] Work Phone: 06-28-2021 12:11-0500 Body temperature 97.4 [degF] Dr. Aleena London Work Phone: [facility] Work Phone: 06-28-2021 12:11-0500 Body weight 109.[address] Aleena London Work Phone: [facility] Work Phone: 06-28-2021 12:11-0500 Diastolic blood pressure 78 mm[Hg] Dr. Aleena London Work Phone: [facility] Work Phone: 06-28-2021 12:11-0500 Heart rate 98 /min Dr. Aleena London Work Phone: [facility] Work Phone: 06-28-2021 12:11-0500 Respiratory rate 16 /min Dr. Aleena London Work Phone: [facility] Work Phone: 06-28-2021 12:11-0500 SaO2% (BldA) [Mass fraction] 98 % Dr. Aleena London Work Phone: [facility] Work Phone: 06-28-2021 12:11-0500 Systolic blood pressure 140 mm[Hg] Dr. Aleena London Work Phone: [facility] Work Phone: 06-21-2021 19:21-0500 Heart rate 78 /min Dr. Aleena London Work Phone: [facility] Work Phone: 06-21-2021 19:21-0500 Respiratory rate 15 /min Dr. Aleena London Work Phone: [facility] Work Phone: 06-21-2021 19:21-0500 SaO2% (BldA) [Mass fraction] 99 % Dr. Aleena London Work Phone: [facility] Work Phone: 06-21-2021 15:48-0500 Body mass index (BMI) [Ratio] 39 kg/m2 Dr. Aleena London Work Phone: [facility] Work Phone: 06-21-2021 15:48-0500 Body temperature 96.8 [degF] Dr. Aleena London Work Phone: [facility] Work Phone: 06-21-2021 15:48-0500 Body weight 109.[address] Aleena London Work Phone: [facility] Work Phone: 06-21-2021 15:48-0500 Diastolic blood pressure 88 mm[Hg] Dr. Aleena London Work Phone: [facility] Work Phone: 06-21-2021 15:48-0500 Systolic blood pressure 132 mm[Hg] Dr. Aleena London Work Phone: [facility] Work Phone: 06-08-2021 08:36-0500 Body mass index (BMI) [Ratio] 39.2 kg/m2 Dr. Aleena London Work Phone: [facility] Work Phone: 06-08-2021 08:36-0500 Body temperature 99.8 [degF] Dr. Aleena London Work Phone: [facility] Work Phone: 06-08-2021 08:36-0500 Body weight 110.[address] Aleena London Work Phone: [facility] Work Phone: 06-08-2021 08:36-0500 Diastolic blood pressure 84 mm[Hg] Dr. Aleena London Work Phone: [facility] Work Phone: 06-08-2021 08:36-0500 Heart rate 85 /min Dr. Aleena London Work Phone: [facility] Work Phone: 06-08-2021 08:36-0500 Respiratory rate 16 /min Dr. Aleena London Work Phone: [facility] Work Phone: 06-08-2021 08:36-0500 SaO2% (BldA) [Mass fraction] 99 % Dr. Aleena London Work Phone: [facility] Work Phone: 06-08-2021 08:36-0500 Systolic blood pressure 140 mm[Hg] Dr. Aleena London Work Phone: [facility] Work Phone: 06-03-2021 07:14-0500 Body mass index (BMI) [Ratio] 38.9 kg/m2 Dr. Aleena London Work Phone: [facility] Work Phone: 06-03-2021 07:14-0500 Body temperature 98.2 [degF] Dr. Aleena London Work Phone: [facility] Work Phone: 06-03-2021 07:14-0500 Body weight 109.[address] Aleena London Work Phone: [facility] Work Phone: 06-03-2021 07:14-0500 Diastolic blood pressure 88 mm[Hg] Dr. Aleena London Work Phone: [facility] Work Phone: 06-03-2021 07:14-0500 Heart rate 83 /min Dr. Aleena London Work Phone: [facility] Work Phone: 06-03-2021 07:14-0500 Respiratory rate 14 /min Dr. Aleena London Work Phone: [facility] Work Phone: 06-03-2021 07:14-0500 SaO2% (BldA) [Mass fraction] 99 % Dr. Aleena London Work Phone: [facility] Work Phone: 06-03-2021 07:14-0500 Systolic blood pressure 146 mm[Hg] Dr. Aleena London Work Phone: [facility] Work Phone: 05-05-2021 09:43-0500 Body mass index (BMI) [Ratio] 38.9 kg/m2 Dr. Aleena London Work Phone: [facility] Work Phone: 05-05-2021 09:43-0500 Body temperature 98 [degF] Dr. Aleena London Work Phone: [facility] Work Phone: 05-05-2021 09:43-0500 Body weight 109.[address] Aleena London Work Phone: [facility] Work Phone: 05-05-2021 09:43-0500 Diastolic blood pressure 68 mm[Hg] Dr. Aleena London Work Phone: [facility] Work Phone: 05-05-2021 09:43-0500 Heart rate 72 /min Dr. Aleena London Work Phone: [facility] Work Phone: 05-05-2021 09:43-0500 Respiratory rate 16 /min Dr. Aleena London Work Phone: [facility] Work Phone: 05-05-2021 09:43-0500 SaO2% (BldA) [Mass fraction] 97 % Dr. Aleena London Work Phone: [facility] Work Phone: 05-05-2021 09:43-0500 Systolic blood pressure 110 mm[Hg] Dr. Aleena London Work Phone: [facility] Work Phone: 05-03-2021 08:06-0500 Body mass index (BMI) [Ratio] 38.7 kg/m2 Dr. Aleena London Work Phone: [facility] Work Phone: 05-03-2021 08:06-0500 Body temperature 98.7 [degF] Dr. Aleena London Work Phone: [facility] Work Phone: 05-03-2021 08:06-0500 Body weight 108.[address] Aleena London Work Phone: [facility] Work Phone: 05-03-2021 08:06-0500 Diastolic blood pressure 70 mm[Hg] Dr. Aleena London Work Phone: [facility] Work Phone: 05-03-2021 08:06-0500 Heart rate 92 /min Dr. Aleena London Work Phone: [facility] Work Phone: 05-03-2021 08:06-0500 Respiratory rate 16 /min Dr. Aleena London Work Phone: [facility] Work Phone: 05-03-2021 08:06-0500 SaO2% (BldA) [Mass fraction] 98 % Dr. Aleena London Work Phone: [facility] Work Phone: 05-03-2021 08:06-0500 Systolic blood pressure 106 mm[Hg] Dr. Aleena London Work Phone: [facility] Work Phone: 04-19-2017 11:55-0500 BMI (Body Mass Index) 38.51 kg/m2 Hanh Balderas NP [facility] 04-19-2017 11:55-0500 BP Diastolic 72 mm[Hg] Hanh Balderas NP [facility] 04-19-2017 11:55-0500 BP Systolic 113 mm[Hg] Hanh Balderas NP [facility] 04-19-2017 11:55-0500 Weight 108.23 kg Hanh Balderas NP [facility] 04-10-2017 05:19-0500 BMI (Body Mass Index) 38.73 kg/m2 Casisdy Moore MD [facility] 04-10-2017 05:19-0500 BP Diastolic 78 mm[Hg] Cassidy Moore MD [facility] 04-10-2017 05:19-0500 BP Systolic 123 mm[Hg] Cassidy Mooer MD [facility] 04-10-2017 05:19-0500 Weight 108.86 kg Cassidy Moore MD [facility] 03-13-2017 09:06-0400 BMI (Body Mass Index) 38.83 kg/m2 Hanh Balderas NP [facility] 03-13-2017 09:06-0400 BP Diastolic 77 mm[Hg] Hanh Balderas NP [facility] 03-13-2017 09:06-0400 BP Systolic 122 mm[Hg] Hahn Balderas NP [facility] 03-13-2017 09:06-0400 Pulse (Heart Rate) 95 /min Hanh Bladeras NP [facility] 03-13-2017 09:06-0400 Weight 109.14 kg Hanh Balderas NP [facility] 02-17-2017 06:51-0400 BMI (Body Mass Index) 38.41 kg/m2 Cassidy Moore MD [facility] [place] [facility] 02-17-2017 06:51-0400 Body Temperature 98.4 [degF] Cassidy Moore MD [facility] [place] 02-17-2017 06:51-0400 BP Diastolic 79 mm[Hg] Cassidy Moore MD [facility] 02-17-2017 06:51-0400 BP Systolic 113 mm[Hg] Cassidy Moore MD [facility] 02-17-2017 06:51-0400 Pulse (Heart Rate) 97 /min Cassidy Moore MD [facility] 02-17-2017 06:51-0400 Respiratory Rate 16 /min Cassidy Moore MD [facility] 02-17-2017 06:51-0400 Weight 107.96 kg Cassidy Moore MD [facility] 02-09-2017 11:21-0400 BMI (Body Mass Index) 38.51 kg/m2 Cassidy Moore MD [facility] 02-09-2017 11:21-0400 Body Temperature 98.5 [degF] Cassidy Moore MD [facility] 02-09-2017 11:21-0400 BP Diastolic 79 mm[Hg] Cassidy Moore MD [facility] 02-09-2017 11:21-0400 BP Systolic 122 mm[Hg] Cassidy Moore MD [facility] 02-09-2017 11:21-0400 Pulse (Heart Rate) 96 /min Cassidy Moore MD [facility] 02-09-2017 11:21-0400 Respiratory Rate 16 /min Cassidy Moore MD [facility] 02-09-2017 11:21-0400 Weight 108.23 kg Cassidy Moore MD [facility] 01-17-2017 13:53-0400 BMI (Body Mass Index) 38.64 kg/m2 Hanh Balderas NP [facility] 01-17-2017 13:53-0400 Body Temperature 98.2 [degF] Hanh Sherrie MAINTENANCE CUSTODIAN [facility] 01-17-2017 13:53-0400 BP Diastolic 85 mm[Hg] Hanh Hillview MAINTENANCE CUSTODIAN [facility] 01-17-2017 13:53-0400 BP Systolic 127 mm[Hg] Hanh Hillview MAINTENANCE CUSTODIAN [facility] 01-17-2017 13:53-0400 Height 167.64 cm Hanh Hillview MAINTENANCE CUSTODIAN [facility] 01-17-2017 13:53-0400 Pulse (Heart Rate) 87 /min Hanh Hillview MAINTENANCE CUSTODIAN [facility] 01-17-2017 13:53-0400 Respiratory Rate 16 /min Hanh Sherrie MAINTENANCE CUSTODIAN [facility] 01-17-2017 13:53-0400 Weight 108.59 kg Hanh [place] MAINTENANCE CUSTODIAN [facility] 01-09-2017 15:06-0400 BMI (Body Mass Index) 38.6 kg/m2 Cassidy Moore MD [facility] [place] 01-09-2017 15:06-0400 Body Temperature 98.2 [degF] Cassidy Moore MD [facility] [place] 01-09-2017 15:06-0400 BP Diastolic 76 mm[Hg] Cassidy Moore MD [facility] 01-09-2017 15:06-0400 BP Systolic 119 mm[Hg] Cassidy Moore MD [facility] 01-09-2017 15:06-0400 Height 167.64 cm [address] [facility] [facility] [place] [facility] 01-09-2017 15:06-0400 Pulse (Heart Rate) 111 /min Cassidy Moore MD [facility] [place] [facility] 01-09-2017 15:06-0400 Respiratory Rate 16 /min Cassidy Moore MD [facility] [place] [facility] 01-09-2017 15:06-0400 Weight 108.5 kg Cassidy Moore MD [facility] [place] [facility] Encounters Encounter Date Encounter Type Care Provider Facility Start: 06-04-2025 ambulatory Edmond Young Facility:[facility] Start: 03-27-2025 End: 03-27-2025 ambulatory Aleena London Facility:[facility] Start: 03-25-2025 ambulatory Efewongbe Oleghe Facili ty:[facility] Start: 03-25-2025 ambulatory Efewongbe Oleghe Facili ty:[facility] Start: 03-25-2025 End: 03-25-2025 ambulatory Efewongbe Oleghe Facility:[facility] Start: 03-19-2025 End: 03-19-2025 ambulatory Mark Anthony Haynes Facility:[facility] Start: 03-17-2025 End: 03-17-2025 ambulatory Efewongbe Dimitrye Facility:[facility] Start: 03-17-2025 End: 03-17-2025 ambulatory Greyson RUSH Facility:[facility] Start: 03-05-2025 End: 03-05-2025 ambulatory Efewongbe Johnghe Facility:[facility] Start: 03-03-2025 End: 03-03-2025 ambulatory Efewongbe Dimitrye [facility] Start: 02-19-2025 ambulatory Efewongbe Oleghe Facili ty:[facility] Start: 02-18-2025 ambulatory Greg Enrique [facility] Start: 02-18-2025 End: 02-18-2025 ambulatory Greg Enrique Facility:[facility] Start: 02-13-2025 End: 02-13-2025 ambulatory Lisa Berkowitz Facility:[facility] Start: 02-13-2025 End: 02-13-2025 ambulatory Tazjevon Johndignanannette Facility:[facility] Start: 02-12-2025 End: 02-13-2025 ambulatory Lisa Berkowitz Facility:[facility] Start: 02-11-2025 End: 02-11-2025 ambulatory Sigrid Ram Facility:[facility] Start: 02-06-2025 End: 02-06-2025 ambulatory Efromanongbe Dimitrye Facility:[facility] Start: 02-06-2025 End: 02-06-2025 ambulatory Antonio RUSH Facility:[facility] Start: 02-03-2025 ambulatory Greg Enrique [facility] Start: 02-03-2025 End: 02-03-2025 ambulatory Britany Nuñez Facility:[facility] Start: 01-30-2025 End: 01-30-2025 Emergency department patient visit Greg Melgar Facility:[facility] Start: 01-24-2025 End: 01-24-2025 ambulatory Efewongbe Oleghe Facility:[facility] Start: 01-22-2025 End: 01-22-2025 ambulatory Efewongbe Oleghe Facility:[facility] Start: 01-08-2025 End: 01-08-2025 ambulatory Efewongbe Oleghe Facility:[facility] Start: 01-06-2025 End: 01-06-2025 ambulatory Sigrid Leanna Facility:[facility] Start: 01-03-2025 End: 01-03-2025 ambulatory Sigrid Leanna Facility:[facility] Start: 12-20-2024 ambulatory Moreno Mostafa Facility :[facility] Start: 12-20-2024 End: 12-20-2024 Emergency department patient visit Adele Aguila Facility:[facility] Start: 12-20-2024 End: 12-20-2024 [facility] Start: 12-17-2024 ambulatory Greg Enrique [facility] Start: 12-17-2024 End: 12-17-2024 ambulatory Juan J Moomaw Facility:[facility] Start: 12-17-2024 End: 12-17-2024 ambulatory Britany Nuñez Facility:[facility] Start: 12-12-2024 ambulatory Efewongbe Oleghe Facili ty:[facility] Start: 11-19-2024 End: 11-19-2024 ambulatory Efewlehighbe Oledignae Facility:[facility] Start: 11-14-2024 End: 11-14-2024 ambulatory Efewlehighbe Oledignae Facility:[facility] Start: 11-11-2024 End: 11-11-2024 ambulatory Sigrid Palafoxk Facility:[facility] Start: 11-08-2024 End: 11-08-2024 ambulatory Efewongbe Oleghe Facility:[facility] Start: 11-04-2024 End: 11-04-2024 [facility] Start: 11-02-2024 End: 11-02-2024 Emergency department patient visit Efewongbe Oleghe Facility:[facility] Start: 11-01-2024 ambulatory Greg Enrique [facility] Start: 11-01-2024 End: 11-01-2024 ambulatory Britany Nuñez Facility:[facility] Start: 10-10-2024 ambulatory Efewongbe Oleghe Facili ty:[facility] Start: 10-09-2024 End: 10-09-2024 ambulatory Efewongbe Oleghe Facility:[facility] Start: 10-09-2024 End: 10-09-2024 ambulatory Efewongbe Oleghe Facility:[facility] Start: 10-06-2024 End: 10-06-2024 Emergency department patient visit Chuck RodriguezKeo Facility:[facility] Start: 10-04-2024 End: 10-04-2024 Emergency department patient visit [facility] Start: 10-01-2024 End: 10-01-2024 ambulatory Efromanongbe Oleghe Facility:[facility] Start: 09-27-2024 ambulatory Efewongbe Oleghe Facili ty:[facility] Start: 09-25-2024 Encounter for gynecological examination (general) (routine) with abnormal findings Hanh Balderas NP [facility] Start: 09-25-2024 End: 09-25-2024 ambulatory Efewongbe Oleghe Facility:[facility] Start: 09-24-2024 End: 09-25-2024 ambulatory Efewongbe Oleghe Facility:[facility] Start: 09-24-2024 End: 09-24-2024 ambulatory Efewongbe Oleghe Facility:[facility] Start: 09-19-2024 ambulatory Efewongbe Oleghe Facili ty:[facility] Start: 09-19-2024 End: 09-19-2024 ambulatory Efewongbe Oleghe Facility:[facility] Start: 09-17-2024 ambulatory Efewongbe Oleghe Facili ty:[facility] Start: 09-17-2024 End: 09-17-2024 ambulatory Efewongbe Oleghe Facility:[facility] Start: 09-11-2024 End: 09-11-2024 ambulatory Efewongbe Oleghe Facility:[facility] Start: 09-04-2024 ambulatory Efewongbe Oleghe Facili ty:[facility] Start: 09-03-2024 End: 09-04-2024 ambulatory Efewongbe Oleghe Facility:[facility] Start: 09-03-2024 End: 09-03-2024 ambulatory Efewongbe Oleghe Facility:[facility] Start: 08-29-2024 End: 08-29-2024 Emergency department patient visit Efromanongnika Moraese Facility:[facility] Start: 08-27-2024 ambulatory Efewongbe Oleghe Facili ty:[facility] Start: 08-27-2024 End: 08-27-2024 ambulatory Efewongbe Oleghe Facility:[facility] Start: 08-21-2024 ambulatory Efewongbe Oleghe Facili ty:[facility] Start: 08-21-2024 End: 08-21-2024 ambulatory Efewongbe Oledignae Facility:[facility] Start: 08-20-2024 End: 08-20-2024 Emergency department patient visit [facility] Start: 08-17-2024 ambulatory Efewongbe Oleghe Facili ty:[facility] Start: 08-14-2024 End: 08-14-2024 ambulatory Efromanongbe Dimitrye Facility:[facility] Start: 08-12-2024 ambulatory Efewongbe Oleghe Facili ty:[facility] Start: 08-09-2024 End: 08-09-2024 ambulatory Efromanongbe Oleghe [facility] Start: 08-02-2024 End: 08-02-2024 ambulatory Efewongbe Oleghe Facility:[facility] Start: 07-25-2024 ambulatory Efewongbe Oleghe Facili ty:[facility] Start: 07-25-2024 End: 07-25-2024 Emergency department patient visit Efongbe Dimitrye Facility:[facility] Start: 07-09-2024 ambulatory Efewongbe Oleghe Facili ty:[facility] Start: 07-05-2024 ambulatory Efewongbe Oleghe Facili ty:[facility] Start: 07-01-2024 ambulatory Efewongbe Oleghe Facili ty:[facility] Start: 07-01-2024 End: 07-01-2024 ambulatory Efewongbe Oleghe Facility:[facility] Start: 06-28-2024 End: 06-28-2024 Emergency department patient visit [facility] Facility:[facility] Start: 06-21-2024 End: 06-25-2024 ambulatory TAZMEMORIAL SATILLA HEALTHNIKA LEZAMA [facility] Start: 06-21-2024 End: 06-21-2024 Office outpatient new 45 minutes Tomasz Seniorn DPM Work Phone: [facility] Comment on above: Plantar fasciitis (P rimary Dx) Start: 06-21-2024 End: 06-21-2024 ambulatory [facility] Facility:[facility] Start: 06-18-2024 End: 06-18-2024 Emergency department patient visit [facility] Facility:[facility] Start: 06-17-2024 End: 06-17-2024 Emergency department patient visit [facility] Facility:[facility] Start: 06-16-2024 End: 06-16-2024 Emergency department patient visit ADAN MOONEY [facility] Start: 06-13-2024 End: 06-13-2024 Emergency department patient visit ANDRIA CADE [facility] Start: 06-12-2024 ambulatory Braulioongnika Moraese Facili ty:[facility] Start: 06-11-2024 End: 06-11-2024 ambulatory [facility] Facility:[facility] Start: 06-10-2024 ambulatory Brauliolehighnika London Facili ty:[facility] Start: 06-05-2024 End: 06-05-2024 Emergency department patient visit ULICES BALDERAS [facility] Start: 06-04-2024 End: 06-04-2024 ambulatory [facility] Facility:[facility] Start: 05-29-2024 End: 05-29-2024 ambulatory [facility] Facility:[facility] Start: 05-28-2024 End: 05-28-2024 Emergency department patient visit ARNOLDO CORCORAN [facility] Start: 05-27-2024 ambulatory Efewongbe Oleghe Facili ty:[facility] Start: 05-27-2024 End: 05-27-2024 ambulatory Efewongbe Oleghe Facility:[facility] Start: 05-20-2024 End: 05-21-2024 Emergency department patient visit Efromanongbe Dimitrye Facility:[facility] Start: 05-18-2024 ambulatory Efewongbe Oleghe Facili ty:[facility] Start: 05-15-2024 End: 05-15-2024 Emergency department patient visit Braulioongnika Moraese Facility:[facility] Start: 05-09-2024 End: 05-10-2024 ambulatory Cassidy Moore Facility:[facility] Start: 05-09-2024 End: 05-09-2024 Emergency department patient visit LIBERTAD FOSTER [facility] Start: 05-06-2024 End: 05-06-2024 Emergency department patient visit Augie Adams Facility:[facility] Start: 05-03-2024 End: 05-03-2024 ambulatory Efewongbe Oleghe [facility] Start: 05-01-2024 End: 05-01-2024 ambulatory Efewlehighbe Oleghe Facility:[facility] Start: 04-25-2024 ambulatory Efewongbe Oleghe Facili ty:[facility] Start: 04-25-2024 End: 04-25-2024 ambulatory Efewlehighbe Oleghe Facility:[facility] Start: 04-23-2024 End: 04-23-2024 Emergency department patient visit Efromanongbe Dimitrye Facility:[facility] Start: 04-23-2024 End: 04-23-2024 ambulatory Efewongbe Oleghe Facility:[facility] Start: 04-16-2024 End: 04-16-2024 ambulatory Efewongbe Oleghe [facility] Start: 04-15-2024 End: 04-15-2024 Emergency department patient visit KAYLA TIJERINA [facility] Start: 04-09-2024 ambulatory Efewongbe Oleghe Facili [facility] Start: 04-09-2024 End: 04-09-2024 ambulatory Efewongbe Oleghe Facility:[facility] Start: 04-08-2024 End: 04-08-2024 Emergency department patient visit Efromanongbe Dimitrye Facility:[facility] Start: 04-01-2024 End: 04-01-2024 Emergency department patient visit RADHA GALLEGOS [facility] Start: 03-17-2024 End: 03-17-2024 Emergency department patient visit COREY MANTILLAJULIO CESAR PRETTY [facility] Start: 03-11-2024 End: 03-11-2024 Emergency department patient visit RADHA GALLEGOS [facility] Start: 03-07-2024 End: 03-07-2024 Emergency department patient visit LIBERTAD CLARK FOSTER [facility] Start: 03-04-2024 End: 03-04-2024 Emergency department patient visit ADAN MARCKRani MOONEY [facility] Start: 02-23-2024 End: 02-23-2024 Emergency department patient visit EBENEZER AKIRA [facility] Start: 02-20-2024 End: 02-20-2024 Emergency department patient visit RADHA MAKI [facility] Start: 02-14-2024 End: 02-14-2024 Emergency department patient visit LIBERTAD CLARK FOSTER [facility] Start: 02-11-2024 End: 02-11-2024 Emergency department patient visit BELKYS AVILA [facility] Start: 01-29-2024 End: 01-29-2024 [facility] Start: 01-16-2024 End: 01-16-2024 Emergency department patient visit NIKKI MILLER [facility] Start: 01-07-2024 End: 01-07-2024 Emergency department patient visit ANDRIA CADE [facility] Start: 12-01-2023 End: 12-01-2023 Emergency department patient visit BELKYS AVILA [facility] Start: 11-25-2023 End: 11-25-2023 Emergency department patient visit LIBERTAD CLARK [facility] Start: 11-20-2023 Orders Only Patrick perez Work Phone: [facility] Comment on above: Pain (Primary Dx) Start: 09-29-2023 End: 09-29-2023 Emergency department patient visit Dr. Aleena London Work Phone: [facility] Work Phone: Start: 09-29-2023 End: 09-29-2023 Dr. Aleena London Work Phone: [facility]-Emergency Department Work Phone: Start: 09-29-2023 Dr. Aleena London Work Phone: [facility]-Outpatient Breast Imaging Work Phone: Start: 09-21-2023 End: 09-21-[address] Aleena London Work Phone: [facility] Work Phone: Start: 09-21-2023 End: 09-21-2023 Dr. Aleena London Work Phone: [facility]-Laboratory, Specimen Work Phone: Start: 09-14-2023 End: 09-14-2023 Dr. Aleena London Work Phone: [facility] Work Phone: Start: 09-14-2023 End: 09-14-2023 Dr. Aleena London Work Phone: [facility] Work Phone: Start: 09-11-2023 End: 09-11-2023 Dr. Aleena London Work Phone: [facility] Work Phone: Start: 09-05-2023 End: 09-05-[address] Aleena London Work Phone: [facility] Work Phone: Start: 09-05-2023 End: 09-05-2023 Dr. Aleena London Work Phone: [facility] Work Phone: Start: 09-05-2023 End: 09-05-2023 Dr. Aleena London Work Phone: [facility] Work Phone: Start: 08-31-2023 End: 08-31-[address] Aleena London Work Phone: [facility] Work Phone: Start: 08-31-2023 End: 08-31-2023 Dr. Aleena London Work Phone: [facility]-Laboratory, Specimen Work Phone: Start: 08-30-2023 End: 08-30-2023 Dr. Aleena London Work Phone: [facility] Work Phone: Start: 08-18-2023 End: 08-18-2023 Dr. Aleena London Work Phone: [facility] Work Phone: Start: 08-16-2023 End: 08-16-2023 ambulatory Argelia Vasquez MD Work Phone: Gynecology Oncology Comment on above: NO SHOW (Primary Dx) Start: 08-16-2023 End: 08-16-2023 Patient encounter procedure Argelia Vasquez MD Work Phone: [facility] Start: 08-11-2023 End: 08-11-[address] Aleena London Work Phone: [facility] Work Phone: Start: 08-11-2023 End: 08-11-2023 Dr. Aleena London Work Phone: [facility] Work Phone: Start: 07-25-2023 End: 07-26-2023 Dr. Aleena London Work Phone: [facility]-Emergency Department Work Phone: Start: 07-24-2023 End: 07-24-[address] Aleena London Work Phone: [facility] Work Phone: Start: 07-24-2023 End: 07-24-2023 Dr. Aleena London Work Phone: [facility]-Ultrasound, [facility] Work Phone: Start: 07-18-2023 End: 07-18-2023 Emergency department patient visit Dr. Aleena London Work Phone: [facility] Work Phone: Start: 07-18-2023 End: 07-18-2023 Dr. Aleena London Work Phone: [facility]-Emergency Department Work Phone: Start: 07-18-2023 End: 07-18-2023 Dr. Aleena London Work Phone: [facility] Work Phone: Start: 07-13-2023 End: 07-13-2023 Dr. Aleena London Work Phone: [facility] Work Phone: Start: 07-06-2023 End: 07-06-2023 Dr. Aleena London Work Phone: [facility] Work Phone: Start: 07-04-2023 End: 07-04-2023 Dr. Aleena London Work Phone: [facility] Work Phone: Start: 06-29-2023 End: 06-29-2023 Dr. Aleena London Work Phone: [facility]-Emergency Department Work Phone: Start: 05-16-2023 End: 05-16-[address] Aleena London Work Phone: [facility] Work Phone: Start: 05-16-2023 End: 05-16-2023 Dr. Aleena London Work Phone: [facility] Work Phone: Start: 05-04-2023 End: 05-04-2023 Emergency department patient visit Dr. Aleena London Work Phone: [facility] Work Phone: Start: 05-04-2023 End: 05-04-2023 Dr. Aleena London Work Phone: [facility]-Emergency Department Work Phone: Start: 05-03-2023 End: 05-03-[address] Aleena London Work Phone: [facility] Work Phone: Start: 05-03-2023 End: 05-03-2023 Dr. Aleena London Work Phone: [facility] Work Phone: Start: 04-19-2023 End: 04-19-2023 Dr. Aleena London Work Phone: [facility] Work Phone: Start: 04-17-2023 Dr. Aleena London Work Phone: [facility] Start: 04-17-2023 End: 04-17-2023 Emergency department patient visit Dr. Aleena London Work Phone: [facility] Work Phone: Start: 04-17-2023 End: 04-17-2023 Dr. Aleena London Work Phone: [facility]-Emergency Department Work Phone: Start: 04-12-2023 Telephone encounter Fatmata maher MD Work Phone: [facility] Comment on above: Referral Start: 04-11-2023 End: 04-11-[address] Aleena London Work Phone: [facility] Work Phone: Start: 04-11-2023 End: 04-11-2023 Dr. Aleena London Work Phone: [facility]-Outpatient Breast Imaging Work Phone: Start: 04-06-2023 End: 04-06-[address] Aleena London Work Phone: [facility] Work Phone: Start: 04-06-2023 End: 04-06-2023 Dr. Aleena London Work Phone: [facility] [place] [facility] Work Phone: Start: 03-28-2023 End: 03-28-[address] Aleena London Work Phone: [facility] Work Phone: Start: 03-28-2023 End: 03-28-2023 Dr. Aleena London Work Phone: [facility]-Laboratory Work Phone: Start: 03-21-2023 End: 03-21-[address] Aleena London Work Phone: [facility] Work Phone: Start: 03-21-2023 End: 03-21-2023 Dr. Aleena London Work Phone: [facility]-Occupational Therapy Work Phone: Start: 03-16-2023 End: 03-16-2023 Dr. Aleena London Work Phone: [facility] Work Phone: Start: 03-09-2023 End: 03-09-[address] Aleena London Work Phone: [facility] Work Phone: Start: 03-09-2023 End: 03-09-2023 Dr. Aleena London Work Phone: [facility]-Outpatient Pavilion Ultrasound Work Phone: Start: 03-07-2023 End: 03-07-2023 Dr. Aleena London Work Phone: [facility] Work Phone: Start: 03-03-2023 End: 03-03-[address] Aleena London Work Phone: [facility] Work Phone: Start: 03-03-2023 End: 03-03-2023 Dr. Aleena London Work Phone: [facility]-Laboratory Work Phone: Start: 03-01-2023 End: 03-01-2023 Dr. Aleena London Work Phone: [facility] Work Phone: Start: 02-22-2023 End: 02-22-2023 Dr. Aleena London Work Phone: [facility] Work Phone: Start: 02-14-2023 End: 02-14-[address] Aleena London Work Phone: [facility] Work Phone: Start: 02-14-2023 End: 02-14-2023 Dr. Aleena London Work Phone: [facility]-Surgical Day Care Start: 02-13-2023 End: 02-13-2023 Dr. Aleena London Work Phone: [facility] Work Phone: Start: 02-10-2023 End: 02-10-2023 Dr. Aleena London Work Phone: [facility] Work Phone: Start: 02-08-2023 End: 02-08-2023 Emergency department patient visit Dr. Aleena London Work Phone: [facility] Work Phone: Start: 02-08-2023 End: 02-08-2023 Dr. Aleena London Work Phone: [facility]-Emergency Department Work Phone: Start: 02-04-2023 End: 02-04-2023 Emergency department patient visit Dr. Aleena London Work Phone: [facility] Work Phone: Start: 02-04-2023 End: 02-04-2023 Dr. Aleena London Work Phone: [facility]-Emergency Department Work Phone: Start: 02-02-2023 Telephone encounter Nima Kaur MD Work Phone: [facility] [place] Comment on above: Patient Question Start: 01-16-2023 End: 01-16-2023 Dr. Aleena London Work Phone: [facility] Work Phone: Start: 12-25-2022 End: 12-25-2022 Emergency department patient visit Dr. Aleena London Work Phone: [facility]-Emergency Department Work Phone: Start: 12-25-2022 End: 12-25-2022 Dr. Aleena London Work Phone: [facility]-Emergency Department Work Phone: Start: 12-15-2022 End: 12-15-[address] Aleena London Work Phone: [facility] Work Phone: Start: 12-15-2022 End: 12-15-[address] Aleena London Work Phone: [facility]-Laboratory, Specimen Work Phone: Start: 12-15-2022 End: 12-15-2022 [facility] Start: 12-15-2022 End: 12-15-[address] Aleena London Work Phone: [facility] Work Phone: Start: 12-15-2022 End: 12-15-2022 Dr. Aleena London Work Phone: [facility] Work Phone: Start: 12-08-2022 End: 12-08-[address] Aleena London Work Phone: [facility] Work Phone: Start: 12-08-2022 End: 12-08-2022 Dr. Aleena London Work Phone: [facility] Work Phone: Start: 12-06-2022 End: 12-06-[address] Aleena London Work Phone: [facility] Work Phone: Start: 12-06-2022 End: 12-06-2022 Dr. Aleena London Work Phone: [facility] Work Phone: Start: 11-30-2022 End: 11-30-[address] Aleena London Work Phone: [facility] Work Phone: Start: 11-30-2022 End: 11-30-2022 Dr. Aleena London Work Phone: [facility] Work Phone: Start: 11-28-2022 End: 11-28-[address] Aleena London Work Phone: [facility] Work Phone: Start: 11-28-2022 End: 11-28-[address] Aleena London Work Phone: [facility] Work Phone: Start: 11-28-2022 End: 11-28-2022 Dr. Aleena London Work Phone: [facility] Work Phone: Start: 11-25-2022 End: 11-25-[address] Aleena London Work Phone: [facility] Work Phone: Start: 11-25-2022 End: 11-25-[address] Aleena London Work Phone: [facility] Work Phone: Start: 11-25-2022 End: 11-25-2022 Dr. Aleena London Work Phone: [facility] Work Phone: Start: 11-19-2022 End: 11-20-2022 Emergency department patient visit Dr. Aleena London Work Phone: [facility] Work Phone: Start: 11-19-2022 End: 11-20-2022 Dr. Aleena London Work Phone: [facility]-Emergency Department Work Phone: Start: 11-18-2022 End: 11-18-[address] Aleena London Work Phone: [facility] Work Phone: Start: 11-18-2022 End: 11-18-2022 Dr. Aleena London Work Phone: [facility] Work Phone: Start: 11-16-2022 End: 11-16-2022 ambulatory LUKASZ EUBANKS Facility:[facility] Start: 11-16-2022 End: 11-16-2022 Office outpatient new 60 minutes Lukasz Eubanks MD Work Phone: [facility] Gynecology Oncology Comment on above: Pelvic pain in femal e (Primary Dx) Start: 11-08-2022 End: 11-08-2022 Emergency department patient visit Dr. Aleena oLndon Work Phone: [facility] Work Phone: Start: 11-08-2022 End: 11-08-2022 Dr. Aleena London Work Phone: [facility]-Emergency Department Start: 10-24-2022 End: 10-24-[address] Aleena London Work Phone: [facility] Work Phone: Start: 10-24-2022 End: 10-24-2022 Dr. Aleena London Work Phone: [facility] Start: 10-11-2022 End: 10-12-2022 Emergency department patient visit ALEENA LONDON MD Facility:B Start: 10-07-2022 End: 10-07-[address] Aleena London Work Phone: [facility] Work Phone: Start: 10-07-2022 End: 10-07-[address] Aleena London Work Phone: [facility] Work Phone: Start: 10-07-2022 End: 10-07-2022 Dr. Aleena London Work Phone: [facility] Start: 09-20-2022 End: 09-20-[address] Aleena London Work Phone: [facility] Work Phone: Start: 09-20-2022 End: 09-20-2022 Dr. Aleena London Work Phone: [facility] Start: 09-02-2022 End: 09-02-[address] Aleena London Work Phone: [facility] Work Phone: Start: 09-02-2022 End: 09-02-2022 Dr. Aleena London Work Phone: [facility] Start: 08-26-2022 Non-patient / Non-visit Dr. Aleena London Work Phone: [facility] Start: 08-26-2022 End: 08-26-2022 Emergency department patient [facility] Start: 08-26-2022 End: 08-26-2022 Dr. Aleena London Work Phone: [facility]-Emergency Department Start: 08-22-2022 End: 08-22-[address] Aleena London [facility] Work Phone: Start: 08-22-2022 End: 08-22-2022 Dr. Aleena [facility] Start: 08-17-2022 End: 08-18-2022 Emergency department patient visit Dr. Aleena London Work Phone: [facility]Emergency Department Work Phone: Start: 08-17-2022 End: 08-18-2022 Dr. Aleena London Work Phone: [facility]Emergency Department Start: 08-15-2022 End: 08-15-2022 Emergency department patient visit ALAN QUINN DO Facility:B Start: 08-15-2022 End: 08-15-2022 Emergency department patient visit ALAN QUINN DO [facility] Start: 08-08-2022 End: 08-08-[address] Aleena London Work Phone: [facility] Work Phone: Start: 08-08-2022 End: 08-08-2022 Dr. Aleena London Work Phone: [facility] Start: 07-25-2022 End: 07-25-[address] Aleena London Work Phone: [facility] Work Phone: Start: 07-25-2022 End: 07-25-2022 Dr. Aleena London Work Phone: [facility]-Ultrasound, [facility] Start: 07-17-2022 End: 07-17-2022 Emergency department patient visit Dr. Aleena London Work Phone: [facility] Work Phone: Start: 07-17-2022 End: 07-17-2022 Dr. Aleena London Work Phone: [facility]Emergency Department Start: 07-14-2022 End: 07-14-[address] Aleena London Work Phone: [facility] Work Phone: Start: 07-14-2022 End: 07-14-2022 Dr. Aleena London Work Phone: [facility]-Laboratory Start: 07-13-2022 End: 07-13-[address] Aleena London Work Phone: [facility] Work Phone: Start: 07-13-2022 End: 07-13-2022 Dr. Aleena London Work Phone: [facility], [facility] Start: 07-04-2022 End: 07-05-2022 Emergency department patient visit Provider Pending Facility:[id number] Start: 06-29-2022 End: 06-29-2022 Dr. Aleena London Work Phone: [facility] Start: 06-23-2022 End: 06-24-2022 Emergency department patient visit [facility] Start: 06-22-2022 End: 06-22-[address] Aleena London Work Phone: [facility] Work Phone: Start: 06-22-2022 End: 06-22-2022 Dr. Aleena London Work Phone: [facility], [facility] Start: 06-10-2022 End: 06-10-2022 Emergency department patient visit Dr. Aleena London Work Phone: [facility] Work Phone: Start: 06-10-2022 End: 06-10-2022 Dr. Aleena London Work Phone: [facility]Emergency Department Start: 05-30-2022 End: 05-30-[address] Aleena London Work Phone: [facility] Work Phone: Start: 05-30-2022 End: 05-30-2022 Dr. Aleena London Work Phone: [facility] Start: 05-25-2022 End: 05-25-2022 Dr. Aleena London Work Phone: [facility] Start: 05-24-2022 End: 05-24-2022 Dr. Aleena [facility] Start: 05-22-2022 End: 05-23-2022 Emergency department patient visit Dr. Aleena London Work Phone: [facility]Emergency Department Start: 05-22-2022 End: 05-23-2022 Dr. Aleena London Work Phone: [facility]gency [facility] Start: 05-04-2022 End: 05-04-[address] Aleena London Work Phone: [facility] Start: 05-04-2022 End: 05-04-2022 Dr. Aleena London Work Phone: [facility] Start: 04-20-2022 End: 04-20-[address] Aleena London Work Phone: [facility] Start: 04-20-2022 End: 04-20-2022 Dr. Aleena London Work Phone: [facility] Start: 04-19-2022 Non-patient / Non-visit Dr. Aleena London Work Phone: [facility] Start: 04-19-2022 Dr. Aleena London Work Phone: [facility] Start: 04-18-2022 End: 04-18-2022 Emergency department patient visit Dr. Aleena London Work Phone: [facility]Emergency Department Start: 04-18-2022 End: 04-18-2022 Dr. Aleena London Work Phone: [facility]gency [facility] Start: 04-16-2022 Non-patient / Non-visit Dr. Aleena London Work Phone: [facility] Start: 04-16-2022 Dr. Aleena London Work Phone: [facility] Start: 04-15-2022 End: 04-15-2022 Dr. Aleena London Work Phone: [facility] Start: 04-15-2022 Non-patient / Non-visit Dr. Aleena London Work Phone: [facility] Start: 04-15-2022 Dr. Aleena London Work Phone: [facility] Start: 04-14-2022 Non-patient / Non-visit Dr. Aleena London Work Phone: [facility] Start: 04-14-2022 Dr. Aleena London Work Phone: [facility] Start: 04-13-2022 Non-patient / Non-visit Dr. Aleena London Work Phone: [facility] Start: 04-13-2022 Dr. Aleena London Work Phone: [facility] Start: 04-12-2022 End: 04-16-2022 Evaluation and management of inpatient Dr. Aleena [facility] Start: 04-12-2022 End: 04-16-2022 Dr. Aleena London Work Phone: [facility] 3 Start: 04-05-2022 End: 04-05-[address] Aleena London Work Phone: [facility] Start: 04-05-2022 End: 04-05-2022 Dr. Aleena London Work Phone: [facility] Start: 03-30-2022 End: 03-30-[address] Aleena London Work Phone: [facility] Work Phone: Start: 03-30-2022 End: 03-30-[address] Aleena London Work Phone: [facility]-Laboratory, Specimen Start: 03-30-2022 End: 03-30-2022 Emergency department patient visit Dr. Aleena London Work Phone: [facility]Emergency Department Start: 03-30-2022 End: 03-30-2022 Dr. Aleena London Work Phone: [facility]gency [facility] Start: 03-30-2022 End: 03-30-[address] Aleena London Work Phone: [facility] Start: 03-30-2022 End: 03-30-2022 Dr. Aleena London Work Phone: [facility] Start: 03-23-2022 Non-patient / Non-visit Dr. Aleena London Work Phone: [facility] Start: 03-23-2022 Dr. Aleena London Work Phone: [facility] Start: 03-22-2022 Non-patient / Non-visit Dr. Aleena London Work Phone: [facility] Start: 03-22-2022 Dr. Aleena London Work Phone: [facility] Start: 03-22-2022 End: 03-23-2022 Evaluation and management of inpatient Dr. Aleena London [facility] Start: 03-22-2022 End: 03-23-2022 Dr. Aleena London [facility] Start: 03-12-2022 End: 03-12-2022 Emergency department patient visit Dr. Aleena London Work Phone: [facility]Emergency Department Start: 03-12-2022 End: 03-12-2022 Dr. Aleena London Work Phone: [facility] Start: 03-04-2022 End: 03-04-2022 Emergency department patient visit Dr. Aleena London Work Phone: [facility]Emergency [facility] Start: 03-04-2022 End: 03-04-2022 Dr. Aleena London Work Phone: [facility]Emergency [facility] Start: 03-02-2022 End: 03-02-[address] Aleena London Work Phone: [facility] Start: 03-02-2022 End: 03-02-2022 Dr. Aleena London Work Phone: [facility] Start: 03-02-2022 End: 03-04-2022 Non-patient / Non-visit Dr. Aleena London Work Phone: [facility] Start: 03-02-2022 End: 03-04-2022 Dr. Aleena London Work Phone: [facility] Start: 02-28-2022 End: 02-28-[address] Aleena London Work Phone: [facility] Start: 02-28-2022 End: 02-28-2022 Dr. Aleena London Work Phone: [facility] Start: 02-25-2022 End: 02-25-[address] Aleena London Work Phone: [facility] Start: 02-25-2022 End: 02-25-2022 Dr. Aleena London Work Phone: [facility] Start: 02-23-2022 End: 02-23-[address] Aleena London Work Phone: [facility] Work Phone: Start: 02-23-2022 End: 02-23-[address] Aleena London Work Phone: [facility]-Pulmonary Services/Neurology Start: 02-23-2022 End: 02-23-2022 Dr. Aleena London [facility] Start: 02-23-2022 End: 02-23-[address] Aleena London Work Phone: [facility] Start: 02-23-2022 End: 02-23-2022 Dr. Aleena London Work Phone: [facility] Start: 02-15-2022 End: 02-15-2022 Emergency department patient visit Dr. Aleena London Work Phone: [facility]Emergency Department Start: 02-15-2022 End: 02-15-2022 Dr. Aleena London Work Phone: [facility]Emergency Department Start: 02-15-2022 End: 02-15-[address] Aleena London Work Phone: [facility] Start: 02-15-2022 End: 02-15-2022 Dr. Aleena London Work Phone: [facility] Start: 02-10-2022 End: 02-10-[address] Aleena London Work Phone: [facility] Start: 02-10-2022 End: 02-10-2022 Dr. Aleena London Work Phone: [facility] Start: 02-08-2022 End: 02-08-[address] Aleena London Work Phone: [facility] Start: 01-13-2022 End: 01-13-[address] Aleena London Work Phone: [facility] Work Phone: Start: 01-13-2022 End: 01-13-[address] Aleena London Work Phone: [facility]-Laboratory Start: 01-11-2022 End: 01-11-[address] Aleena London Work Phone: [facility] Work Phone: Start: 01-11-2022 End: 01-11-[address] Aleena London Work Phone: [facility] Start: 01-03-2022 End: 01-03-[address] Aleena Lodnon Work Phone: [facility]Laboratory Start: 12-30-2021 End: 12-30-[address] Aleena London Work Phone: [facility] Start: 12-23-2021 End: 12-24-2021 Emergency department patient visit Dr. Aleena London Work Phone: [facility]-Emergency Department Start: 12-16-2021 End: 12-16-[address] Aleena London Work Phone: [facility] Start: 12-07-2021 End: 12-07-[address] Aleena London Work Phone: [facility] Start: 11-27-2021 End: 11-27-2021 Emergency department patient visit Dr. Aleena Leiva Phone: [facility]-Emergency Department Start: 11-18-2021 End: 11-18-[address] Aleena Leiva Phone: [facility] Start: 11-18-2021 End: 11-18-[address] Aleena Leiva Phone: [facility] Start: 11-01-2021 End: 11-01-[address] Aleena Leiva Phone: [facility] Start: 10-29-2021 End: 10-29-[address] Aleena Leiva Phone: [facility] Start: 10-26-2021 Non-patient / Non-visit Dr. Aleena Leiva Phone: [facility] Start: 10-26-2021 End: 10-26-[address] Aleena Leiva Phone: [facility]-Cardiovascular Services Start: 10-15-2021 End: 10-15-[address] Aleena Leiva Phone: [facility] Start: 10-13-2021 End: 10-13-[address] Aleena Leiva Phone: [facility] Start: 10-11-2021 End: 10-11-[address] Aleena Leiva Phone: [facility]-Laboratory, Specimen Start: 10-11-2021 End: 10-11-[address] Aleena Leiva Phone: [facility] Start: 09-29-2021 End: 09-29-[address] Aleena Leiva Phone: [facility]-Physical Therapy Start: 09-27-2021 End: 09-27-[address] Aleena Leiva Phone: [facility] Start: 09-23-2021 End: 09-23-[address] Aleena Leiva Phone: [facility] Start: 09-22-2021 End: 09-22-[address] Aleena Leiva Phone: [facility] Start: 09-15-2021 End: 09-15-[address] Aleena Leiva Phone: [facility] Start: 09-09-2021 End: 09-09-[address] Aleena Leiva Phone: [facility] Start: 09-07-2021 End: 09-07-[address] Aleena Leiva Phone: [facility] Start: 08-25-2021 End: 08-25-2021 Emergency department patient visit Dr. Aleena Leiva Phone: [facility]-Emergency Department Start: 08-20-2021 End: 08-20-2021 Emergency department patient visit Dr. Aleena Leiva Phone: [facility]Emergency Department Start: 08-11-2021 End: 08-11-[address] Aleena Leiva Phone: [facility] Start: 08-11-2021 End: 08-11-[address] Aleena Leiva Phone: [facility] Start: 08-09-2021 End: 08-09-[address] Aleena Leiva Phone: [facility] Start: 07-29-[address] Jorge London Work Phone: [facility] Therapy Start: 07-26-2021 End: 07-26-[address] [facility] Start: 07-25-[address] Lindy Leiva [facility] Start: 07-16-2021 End: 07-16-[address] Ale[facility]iva [facility] Start: 07-15-2021 End: 07-15-[address] Aleena Leiva Phone: [facility] Start: 07-06-2021 End: 07-06-[address] Aleena Leiva Phone: [facility] Start: 06-29-2021 End: 06-29-[address] Aleena London Work Phone: [facility] Start: 06-28-2021 End: 06-28-[address] Aleena Leiva Phone: [facility] Start: 06-21-2021 End: 06-21-2021 Emergency department patient visit Dr. Aleena London Work Phone: [facility]-Emergency Department Start: 06-11-2021 End: 06-11-[address] Aleena London Work Phone: [facility]-Ultrasound, H Start: 06-08-2021 End: 06-08-[address] Aleena London Work Phone: [facility]-Laboratory, [facility] Start: 06-03-2021 End: 06-03-[address] Aleena London Work Phone: [facility] Start: 05-24-2021 End: 05-24-[address] Aleena London Work Phone: [facility]-Laboratory, Specimen Start: 05-05-2021 End: 05-05-[address] Aleena London Work Phone: [facility]-Pulmonary Medicine [facility] Start: 05-03-2021 End: 05-03-[address] Aleena London Work Phone: [facility] Start: 12-31-2020 End: 12-31-2020 Subsequent hospital visit by physician [facility] Work Phone: Radiology Comment on above: Acute pain of left s houlder [M25.512] Start: 06-25-2020 End: 06-25-2020 Subsequent hospital visit by physician [facility] Work Phone: Radiology Comment on above: Bronchitis [J40] Start: 11-29-2017 End: 11-29-2017 Emergency department patient visit Debora Quiroz Facility:[facility] Procedures Date Procedure Procedure Detail Performing [...] 04-19-2017 Routine OB Visit (Global) Hanh walter MAINTENANCE CUSTODIAN Work Phone: Start: 04-10-2017 End: 04-10-2017 Routine OB Visit (Global) Cassidy villatoro MD Work Phone: Start: 03-13-2017 End: 03-13-2017 Routine OB Visit (Global) Hanh Dionne Manav walter MAINTENANCE CUSTODIAN Work Phone: Start: 03-03-2017 End: 03-03-2017 Routine OB Visit (Global) Hanh Dionne Manav walter MAINTENANCE CUSTODIAN Work Phone: Start: 02-17-2017 End: 02-17-2017 Routine [...] London Work Phone: Fracture of femur (disorder) [employer] Fracture of forearm (disorder) [employer] Investigation of tra nsfusion reaction Dr. Aleena [...] Activity Detail Author Start: 07-20-2053 Pneumococcal vaccination [facility] Comment on above: Postponed from 04/29 (Postponed To Appropriate Date) Start: 2047 RSV Immunization age d 60 or older (1 - 1-dose 60+ series) RSV Immunization aged 60 or older (1 - 1-dose 60+ series) [facility] Start: 2037 Zoster Vaccines (1 of 2) Zoste r Vaccines (1 of 2) [facility] Start: 08-11-2030 Tetanus vaccination Tetanus: Every 1 0yrs [facility] Start: 08-11-2030 Urine microalbumin profile DTa P,Tdap,Td Vaccine (2 - Td or Tdap) [facility] Start: 09-20-2024 End: 09-20-2024 Patient encounter procedure 09/20/2024 10:30 AM EDT Office Visit [facility] [address] [place] [id number] Tomasz Ace Jr., DPM [address] [place] [address] [facility] Start: 01-21-2024 Covid-19 Vaccine ( season) Covid-19 Vaccine ( season) [facility] Start: 01-21-2024 Influenza vaccination [facility] Start: 12-19-2023 End: 12-19-2023 Patient encounter procedure Radiology Comment on above: RT FOOT BONE SPUR RT FOOT PA INFUL SEVERE Start: 09-29-2023 [facility] Start: 09-28-2023 HPV Testing HPV Testing [facility] Start: 09-28-2023 Pap Testing Pap Testing [facility] Start: 09-28-2023 Screening for malign ant neoplasm of cervix [facility] Start: 09-05-2023 Chlamydia deoxyribon ucleic acid detection [facility] Start: 09-05-[address] [facility] Start: 09-05-2023 [facility] Start: 07-26-2023 [facility] Start: 07-18-2023 [facility] Start: 07-06-2023 Patient referral [facility] Work Phone: Start: 06-29-2023 [facility] Start: 05-16-20[address] Ul[address]ound elastogra phy of liver [facility] Start: 05-04-2023 [facility] Start: 05-03-[address] [facility] Start: 04-19-2023 Patient referral [facility] Work Phone: Start: 04-11-2023 Digital breast tomosynthesis bilateral [facility] Start: 03-16-2023 Patient referral [facility] Work Phone: Start: 02-14-2023 Anes nerve muscle td n fascia&bursa forearm wrist [facility] Start: 02-14-2023 Neuroplasty &/transp os median nrv carpal tunne [facility] Start: 02-14-2023 Application of ice c ollar, cap or bag [facility] Start: 02-14-[address] [facility] Start: 02-14-2023 Elevation of affecte d extremity [facility] Start: 02-14-2023 Following clinical p athway protocol [facility] Start: 02-14-2023 Patient discharge [facility] Start: 02-14-[address] [facility] Start: 02-14-[address] Taking [address] vital signs [facility] Start: 02-14-[address] [facility] Start: 02-14-2023 [facility] Start: 02-14-2023 Medication education [facility] Start: 02-13-2023 Patient referral [facility] Work Phone: Start: 02-13-2023 X-ray of cervical spine [facility] Start: 02-13-2023 X-ray of lumbar spin e, two or three views [facility] Start: 02-13-2023 XR Cervical spine [address] [facility] Start: 02-13-2023 XR Lumbar spine [address] [facility] Start: 01-20-2023 Covid-19 Vaccine ( season) Covid-19 Vaccine ( season) [facility] Start: 01-20-2023 Influenza vaccination Influenza Vacc ine (#1) [facility] Start: 09-02-2022 Patient referral [facility] Work Phone: Start: 07-17-2022 Plain chest X-ray [facility] Start: 07-17-2022 XR Chest PA and Lateral [facility] Start: 07-14-2022 Celiac disease screen [facility] Start: 07-14-2022 [facility] Start: 05-30-2022 Patient referral [facility] Work Phone: Start: 04-16-2022 Patient discharge [facility] Start: 04-15-[address] [facility] Start: 04-15-[address] [facility] Start: 04-15-2022 Elevation of head of bed [facility] Start: 04-15-2022 Incentive spirometry [facility] Start: 04-15-[address] intake and output [facility] Start: 04-15-[address] [facility] Start: 04-15-[address] [facility] Start: 04-15-2022 Patient education [facility] Start: 04-15-2022 Procedures relating to eating and drinking [facility] Start: 04-15-2022 Taking patient vital signs [facility] Start: 04-15-2022 [facility] Start: 04-15-2022 Introduction of urin cori catheter [facility] Start: 04-14-2022 [facility] Work Phone: Start: 04-13-2022 Application of intermittent pneumatic compression device [facility] Start: 04-13-2022 Consultation [facility] Start: 04-13-[address] [facility] Start: 04-12-2022 Following clinical p athway protocol [facility] Start: 04-12-[address] [facility] Start: 04-12-2022 Assessment of risk o f venous thromboembolism [facility] Start: 04-12-2022 Insertion of cathete r into peripheral vein [facility] Start: 04-12-2022 Providing care accor ding to standard [facility] Start: 04-12-2022 [facility] Start: 04-12-2022 Verification routine [facility] Work Phone: Start: 04-12-2022 Admission procedure [facility] Start: 04-12-2022 End: 04-12-[address] [facility] Work Phone: Start: 04-12-2022 Patient referral to dietitian [facility] Start: 03-30-2022 Culture bacterial quanttative colony count urine [facility] Start: 03-30-2022 Culture bct isol&prs mptv id isolate ea urine [facility] Start: 03-23-2022 Patient discharge [facility] Start: 03-22-[address] [facility] Start: 03-22-[address] [facility] Start: 03-22-2022 Elevation of head of bed [facility] Start: 03-22-2022 Incentive spirometry [facility] Start: 03-22-[address]22 Me[address] intake and output [facility] Start: 03-22-[address] [facility] Start: 03-22-[address] [facility] Start: 03-22-2022 Patient education [facility] Start: 03-22-2022 Procedures relating to eating and drinking [facility] Start: 03-22-2022 Taking patient vital signs [facility] Start: 03-22-2022 Wound care [facility] Start: 03-22-2022 [facility] Start: 03-22-2022 Introduction of urin cori catheter [facility] Start: 03-22-2022 Admission procedure [facility] Start: 03-04-2022 [facility] Start: 01-03-2022 Fat [Presence] in Stool [facility] Work Phone: Start: 10-23-2021 Annual PCP Team Clinical Rn Manager sarai Disease Visit Annual PCP Team Chronic Disease Visit [facility] Start: 09-27-2021 Screening for malign ant neoplasm of cervix Cervical Cancer Screening [facility] Start: 09-22-2021 Patient referral [facility] Work Phone: Start: 08-11-2021 Patient referral [facility] Work Phone: Start: 06-03-2021 Patient referral [facility] Work Phone: Start: 05-10-2017 End: 05-10-2017 Appointment Appointment [facility] Start: 2017 Screening for malign ant neoplasm of cervix [facility] Start: 04-19-2017 End: 04-19-2017 Appointment Appointment [facility] Start: 04-10-2017 End: 04-10-2017 Appointment Appointment [facility] Start: 03-13-2017 End: 03-13-2017 Us preg uterus after 1st trimest 1/1st gestation US OB, >14 weeks [facility] Start: 03-13-2017 End: 03-13-2017 Appointment Appointment [facility] Start: 03-10-2017 End: 03-10-2017 Appointment Appointment [facility] Start: 03-03-2017 End: 03-13-2017 Us abdominal real time w/image limited US Kidney [facility] Start: 03-03-2017 End: 03-03-2017 Appointment Appointment [facility] Start: 03-01-2017 End: 03-01-2017 Appointment Appointment [facility] Start: 02-17-2017 End: 02-17-2017 Mri brain brain stem w/o contrast material MRI Brain [facility] Work Phone: Start: 02-17-2017 End: 02-17-2017 Appointment [facility] Start: 02-17-2017 End: 02-17-2017 Mri brain w/o dye MRI Brain [facility] Start: 02-09-2017 End: 02-09-2017 *CBC with Differential *CBC with Differential [facility] Start: 02-09-2017 End: 02-09-2017 *GC/Chlamydia *GC/Chlamydia [facility] Start: 02-09-2017 End: 02-11-2017 *HEBSAG - Hep B Surface Antigen 6510 *HEBSAG - Hep B Surface Antigen 6510 [facility] Start: 02-09-2017 End: 02-11-2017 *HIV antibody *HIV antibody [facility] Start: 02-09-2017 End: 02-09-2017 *TS Type and Screen *TS Type and Screen [facility] Start: 02-09-2017 End: 02-09-2017 Hemoglobin A1c/Hemoglobin.total mass fraction (Bld) *HgA1C [facility] Start: 02-09-2017 End: 02-11-2017 Reagin antibody presence *RPR [facility] Start: 02-09-2017 End: 02-11-2017 Rubella virus Ab [Units/volume] in Serum *Rubella Screen [facility] Start: 02-09-2017 End: 02-09-2017 Urine culture, bacteria *CUUR - Culture, Urine ([place] Count) [facility] Start: 02-09-2017 End: 03-13-2017 Us preg uterus after 1st trimest 1/ gestation US OB, >14 weeks [facility] Start: 02-09-2017 End: 02-09-[address] [facility] Start: 02-09-2017 End: 02-09-2017 *CBC with Differential *CBC with Differential [facility] Start: 02-09-2017 End: 02-09-2017 *GC/Chlamydia *GC/Chlamydia [facility] Start: 02-09-2017 End: 02-11-2017 *HEBSAG - Hep B Surface Antigen 6510 *HEBSAG - Hep B Surface Antigen 6510 [facility] Start: 02-09-2017 End: 02-11-2017 *HIV antibody *HIV antibody [facility] Start: 02-09-2017 End: 02-09-2017 *TS Type and Screen *TS Type and Screen [facility] Start: 02-09-2017 End: 02-09-2017 HbA1c *HgA1C [facility] Start: 02-09-2017 End: 02-09-2017 Ob us >/= 14 wks, sngl fetus US OB, >14 weeks [facility] Start: 02-09-2017 End: 02-11-2017 Reagin antibody presence *RPR [facility] Start: 02-09-2017 End: 02-11-2017 Rubella virus Ab [Units/volume] in Serum *Rubella Screen [facility] Start: 02-09-2017 End: 02-09-2017 Urine culture, bacteria *CUUR - Culture, Urine ([place] Count) [facility] Start: 02-06-2017 End: 02-09-2017 Thyroid stimulating hormone (TSH) *TSH [facility] Start: 02-06-2017 End: 02-09-2017 Thyroxine (T4) *T4 TT4 (Thyroxine Total) [facility] Start: 02-06-2017 End: 02-09-2017 Thyroid stimulating hormone (TSH) *TSH [facility] Start: 02-06-2017 End: 02-09-2017 Thyroxine (T4) *T4 TT4 (Thyroxine Total) [facility] Start: 01-17-2017 End: 01-17-2017 Bacteria genital culture *CUV - Culture, VAG/CX Comprehensive [facility] Start: 01-17-2017 End: 01-17-[address] [facility] Start: 01-17-2017 End: 01-17-2017 Bacteria genital culture *CUV - Culture, VAG/CX Comprehensive [facility] Start: 01-09-2017 End: 01-09-2017 Appointment Appointment [facility] Start: 01-09-2017 End: 01-09-2017 *ABS Antibody Screen, Indirect *ABS Antibody Screen, Indirect [facility] Start: 01-09-2017 End: 01-09-2017 *Blood Typing, RH *Blood Typing, RH [facility] Start: 01-09-2017 End: 01-09-2017 *CBC with Differential *CBC with Differential [facility] Start: 01-09-2017 End: 01-09-2017 *GC/Chlamydia *GC/Chlamydia [facility] Start: 01-09-2017 End: 01-09-2017 *HEBSAG - Hep B Surface Antigen 6510 *HEBSAG - Hep B Surface Antigen 6510 [facility] Start: 01-09-2017 End: 01-09-2017 *HIV antibody *HIV antibody [facility] Start: 01-09-2017 End: 01-09-2017 *TS Type and Screen *TS Type and Screen [facility] Start: 01-09-2017 End: 01-09-2017 GTT (glucose after 1hr PO glucose) *Glucose, Post Glucose Dose [facility] Start: 01-09-2017 End: 01-09-2017 Reagin antibody presence *RPR [facility] Start: 01-09-2017 End: 01-09-2017 Rubella virus Ab [Units/volume] in Serum *Rubella Screen [facility] Start: 01-09-2017 End: 01-09-2017 Thyroid stimulating hormone (TSH) *TSH [facility] Start: 01-09-2017 End: 01-09-2017 Thyroxine (T4) *T4 TT4 (Thyroxine Total) [facility] Start: 01-09-2017 End: 01-09-2017 Urine culture, bacteria *CUUR - Culture, Urine ([place] Count) [facility] Start: 01-09-2017 End: 01-09-2017 *ABS Antibody Screen, Indirect *ABS Antibody Screen, Indirect [facility] Start: 01-09-2017 End: 01-09-2017 *Blood Typing, RH *Blood Typing, RH [facility] Start: 01-09-2017 End: 01-09-2017 *CBC with Differential *CBC with Differential [facility] Start: 01-09-2017 End: 01-09-2017 *GC/Chlamydia *GC/Chlamydia [facility] Start: 01-09-2017 End: 01-09-2017 *HEBSAG - Hep B Surface Antigen 6510 *HEBSAG - Hep B Surface Antigen 6510 [facility] Start: 01-09-2017 End: 01-09-2017 *HIV antibody *HIV antibody [facility] Start: 01-09-2017 End: 01-09-2017 *TS Type and Screen *TS Type and Screen [facility] Start: 01-09-2017 End: 01-09-2017 GTT (glucose after 1hr PO glucose) *Glucose, Post Glucose Dose [facility] Start: 01-09-2017 End: 01-09-2017 Reagin antibody presence *RPR [facility] Start: 01-09-2017 End: 01-09-2017 Rubella virus Ab [Units/volume] in Serum *Rubella Screen [facility] Start: 01-09-2017 End: 01-09-2017 Thyroid stimulating hormone (TSH) *TSH [facility] Start: 01-09-2017 End: 01-09-2017 Thyroxine (T4) *T4 TT4 (Thyroxine Total) [facility] Start: 01-09-2017 End: 01-09-2017 Urine culture, bacteria *CUUR - Culture, Urine ([place] Count) [facility] Start: 01-02-2017 End: 01-09-2017 Us uterus 14 wk transabdl 05/22 gestat US OB, <14 weeks [facility] Start: 01-02-2017 End: 01-09-2017 Ob us < 14 wks, single fetus US OB, <14 weeks [facility] Start: 2008 Screening for malign ant neoplasm of cervix Pap Smear [facility] Start: 2006 DTaP/Tdap/Td Vaccine s (1 - Tdap) DTaP/Tdap/Td Vaccines (1 - Tdap) [facility] Start: 2006 Hepatitis B Vaccine (1 of 3 - 19+ 3-dose series) Hepatitis B Vaccine (1 of 3 - 19+ 3-dose series) [facility] Start: 2006 Pneumococcal Vaccine : Ped or At-Risk (1 of 2 - PCV) Pneumococcal Vaccine: Ped or At-Risk (1 of 2 - PCV) [facility] Start: 2005 Anxiety Screening Anxiety Screening [facility] Start: 2005 Depression Screening Depression Scre ening [facility] Start: 2005 Hepatitis C screening Hepatitis C Sc reening [facility] Start: 2002 HIV screening HIV Screening [facility] Start: 1999 Depression Screening [facility] Start: 1990 History and physical examination, annual for health maintenance Wellness Visit [facility] Start: 1988 MMR Vaccines (1 of 1 - Standard series) MMR Vaccines (1 of 1 - Standard series) [facility] Start: 1988 Varicella vaccination Varicell a Vaccines (1 of 2 - 2-dose childhood series) [facility] Start: 1987 Covid-19 Vaccine (#1) Covid-19 Vacci ne (#1) [facility] Start: 1987 Hepatitis B Vaccine (1 of 3 - 3-dose series) Hepatitis B Vaccine (1 of 3 - 3-dose series) [facility] Start: 1987 Hepatitis B Vaccines (1 of 3 - 3-dose series) Hepatitis B Vaccines (1 of 3 - 3-dose series) [facility] Start: 1987 HIV screening HIV Screening [facility] Anaerobic Culture Anaerobic Culture [facility] Work Phone: Anaerobic microbial culture Anaerobic Culture [facility] Work Phone: Antibody to lupus La protein measurement [facility] Antibody to SS-A measurement [facility] Bacteria identified in Blood by Culture Blood Culture [facility] Work Phone: Bacteria identified in Unspecified specimen by Anaerobe culture [facility] Work Phone: Blood culture [facility] Work Phone: Centromere protein B Ab [Units/volume] in Serum [facility] Chromatin Ab [Units/volume] in Serum or Plasma [facility] DNA double strand Ab [Units/volume] in Serum [facility] Fat [Mass/mass] in Stool [facility] Work Phone: Fat.neutral [Presenc e] in Stool [facility] Work Phone: Alise-1 extractable nuc lear Ab [Units/volume] in Serum [facility] Lipid 1996 panel - S luisa or Plasma [facility] Measurement of immunoglobulin A in serum specimen [facility] Microbial culture, routine Wound Culture [facility] Work Phone: MR Biliary ducts and Pancreatic duct WO contrast [facility] Work Phone: Neisseria gonorrhoea e rRNA [Presence] in Unspecified specimen by JONE with probe detection [facility] Neutrophil cytoplasm ic Ab.classic [Units/volume] in Serum [facility] P-ANCA measurement [facility] Patient Education [facility] Work Phone: Patient referral [facility] Work Phone: PCR test for Chlamyd ia trachomatis [facility] Radionuclide gastric emptying study [facility] Work Phone: Radionuclide gastric emptying study [facility] Radionuclide imaging of liver and/or biliary tract using radioactive isotope [facility] Work Phone: SCL-70 extractable n uclear Ab [Units/volume] in Serum by Immunoassay [facility] [place] extractable nu clear Ab [Presence] in Serum [facility] Tissue transglutamin ase IgA Ab [Units/volume] in Serum [facility] Tissue transglutamin ase IgG Ab [Units/volume] in Serum [facility] Ultrasound elastography [facility] Work Phone: Ultrasound elastography [facility] Urine test [facility] Work Phone: US Abdomen limited [facility] US Pelvis [facility] US Pelvis [facility] US Pelvis transvaginal [facility] US Pelvis transvaginal [facility] End: 12-19-2024 XR Foot - right AP and Lateral and oblique XR FOOT GENERAL 3V AP/LAT/OBL RIGHT Radiology Routine Pain 1 Occurrences starting 11/20/2023 until 12/19/2024 [facility] Work Phone: Comment on above: 1 Occurrences starti ng 11/20/2023 until 12/19/2024 [facility] Immunizations Immunization Date Immunization Notes Care Provider Fa cilicole 08-11-2020 tetanus toxoid, redu wendy diphtheria toxoid, and acellular pertussis vaccine, adsorbed Dr. Aleena London Work Phone: [facility] 04-16-2019 influenza virus vaccine, unspecified formulation Nima Kaur MD Work Phone: [facility] 08-29-2012 RHO(D) immune globul in- IV or IM Nima Kaur MD Work Phone: [facility] Work Phone: 06-22-2012 RHO(D) immune globul in- IV or IM Nima Kaur MD Work Phone: [facility] 06-02-2012 RHO(D) immune globul in- IV or IM Nima Kaur MD Work Phone: [facility] Payers Date Payer Category Payer Unknown [id number] 02-10-2025 Unknown [id number] 02-06-2025 Unknown [id number] 05-06-2024 Unknown [id number] 02-02-2024 Self-pay [id number] 08-20-2021 Medicaid (Managed Care) [facility] [id number] 08-20-2021 Unknown [id number] 07-20-2020 Medicaid [id number] 09-20-2019 Private Health Insurance [facility] [id number] 09/20/2019-05/21/2020 [address] [address] [place] [address] HMO [id number] 11-29-2017 Unknown 08-20-2016 Unknown [id number] 1987 Unknown [id number] 2.16.840.1.829242.3.579.2. 1069 1987 Unknown [id number] 2.16.840.1.087385.3.579.2. 903 1987 Unknown [id number] 2.16.840.1.766731.3.579.2. 627 1987 Unknown [id number] 2.16.840.1.746532.3.579.2. 627 1987 Unknown [id number] 2.16.840.1.869964.3.579.2. 903 1987 Unknown [id number] 2.16.840.1.872127.3.579.2. 903 1987 Unknown [id number] 2.16.840.1.393143.3.579.2. 903 1987 Unknown [id number] 2.16.840.1.545510.3.579.2. 902 1987 Unknown [id number] 2.16.840.1.814487.3.579.2. 902 1987 Unknown [id number] 2.16.840.1.816878.3.579.2. 902 1987 Unknown [id number] 2.16.840.1.834548.3.579.2. 902 1987 Unknown [id number] 2.16.840.1.973127.3.579.2. 902 1987 Unknown [id number] 2.16.840.1.921345.3.579.2. 902 1987 Unknown [id number] 2.16.840.1.378228.3.579.2. 902 1987 Unknown [id number] 2.16.840.1.006310.3.579.2. 902 1987 Unknown [id number] 2.16.840.1.822547.3.579.2. 902 1987 Unknown [id number] 2.16.840.1.668228.3.579.2. 902 1987 Unknown [id number] 2.16.840.1.789851.3.579.2. 902 1987 Unknown [id number] 2.16.840.1.669601.3.579.2. 902 1987 Unknown [id number] 2.16.840.1.038207.3.579.2. 902 1987 Unknown [id number] 2.16.840.1.085751.3.579.2. 902 1987 Unknown [id number] 2.16.840.1.877321.3.579.2. 902 1987 Unknown [id number] 2.16.840.1.226452.3.579.2. 902 1987 Unknown [id number] 2.16.840.1.419550.3.579.2. 902 1987 Unknown [id number] 2.16.840.1.939721.3.579.2. 902 1987 Unknown [id number] 2.16.840.1.733162.3.579.2. 902 1987 Unknown [id number] 2.16.840.1.947910.3.579.2. 902 1987 Unknown [id number] 2.16.840.1.958328.3.579.2. 902 1987 Unknown [id number] 2.16.840.1.740099.3.579.2. 902 1987 Unknown [id number] 2.16.840.1.499764.3.579.2. 902 Unknown [id number] Unknown [id number] Unknown [id number] 2.16.840.1.198512.3.579.2. 462 Unknown [id number] 2.16.840.1.273971.3.579.2. 462 Unknown [id number] 2.16840.1.615357.3.579.2. 462 Unknown [id number] 2.16840.1.236838.3.579.2. 462 Unknown [id number] 2.16.840.1.965814.3.579.2. 462 Unknown [id number] 2.16.840.1.869297.3.579.2. 462 Unknown [id number] 2.16.840.1.421826.3.579.2. 462 Unknown [id number] 2.16.840.1.861629.3.579.2. 462 Unknown [id number] 2.16.840.1.325711.3.579.2. 462 Unknown [id number] 2.16.840.1.056941.3.579.2. 462 Unknown [id number] 2.16840.1.620781.3.579.2. 462 Unknown [id number] 2.16.840.1.767316.3.579.2. 462 Unknown [id number] 2.840.1.597611.3.579.2. 462 Unknown [id number] 2.840.1.754302.3.579.2. 462 Unknown [id number] 2.840.1.916230.3.579.2. 462 Unknown [id number] 2.840.1.588595.3.579.2. 462 Unknown [id number] 2.840.1.726536.3.579.2. 462 Unknown [id number] 2.840.1.946401.3.579.2. 462 Unknown [id number] 2.840.1.937957.3.579.2. 462 Unknown [id number] 2.840.1.517273.3.579.2. 462 Unknown [id number] 2.840.1.286382.3.579.2. 462 Unknown [id number] 2.840.1.962426.3.579.2. 462 Unknown [id number] 2.840.1.269743.3.579.2. 462 Unknown [id number] 2.840.1.178220.3.579.2. 462 Unknown [id number] 2.840.1.570750.3.579.2. 462 Unknown [id number] 2.840.1.545170.3.579.2. 462 Unknown [id number] 2.840.1.034750.3.579.2. 462 Unknown [id number] 2.16.840.1.968713.3.579.2. 462 Unknown [id number] 2.16.840.1.861725.3.579.2. 462 Unknown [id number] 2.16.840.1.460432.3.579.2. 462 Unknown [id number] 2.16.840.1.437335.3.579.2. 462 Unknown [id number] 2.16.840.1.230645.3.579.2. 462 Unknown [id number] 2.16.840.1.246792.3.579.2. 462 Unknown [id number] 2.16.840.1.731821.3.579.2. 462 Unknown [id number] 2.16.840.1.086185.3.579.2. 462 Unknown [id number] 2.16840.1.577897.3.579.2. 462 Unknown [id number] 2.16.840.1.158622.3.579.2. 462 Unknown [id number] 2.16.840.1.665351.3.579.2. 462 Unknown [id number] 2.16.840.1.156716.3.579.2. 462 Unknown [id number] 2.16.840.1.206207.3.579.2. 462 Unknown [id number] 2.840.1.724835.3.579.2. 462 Unknown [id number] 2.16.840.1.909354.3.579.2. 462 Unknown [id number] 2.16.840.1.444245.3.579.2. 462 Unknown [id number] 2.16.840.1.455109.3.579.2. 462 Unknown [id number] 2.16.840.1.946589.3.579.2. 462 Unknown [id number] 2.16.840.1.201840.3.579.2. 462 Unknown [id number] 2.16.840.1.458353.3.579.2. 462 Unknown [id number] 2.16.840.1.448988.3.579.2. 462 Unknown [id number] 2.16.840.1.973559.3.579.2. 462 Unknown [id number] 2.16.840.1.224873.3.579.2. 462 Unknown [id number] 2.16.840.1.145309.3.579.2. 462 Unknown [id number] 2.16840.1.270862.3.579.2. 462 Unknown [id number] 2.840.1.227429.3.579.2. 462 Unknown [id number] 2.840.1.479758.3.579.2. 462 Unknown [id number] 2.840.1.098624.3.579.2. 462 Unknown [id number] 2.840.1.084424.3.579.2. 462 Unknown [id number] 2.840.1.564970.3.579.2. 462 Unknown [id number] 2.840.1.669849.3.579.2. 462 Unknown [id number] 2.840.1.401966.3.579.2. 462 Unknown [id number] 2.840.1.722149.3.579.2. 462 Unknown [id number] 2.16840.1.818055.3.579.2. 462 Unknown [id number] 2.16840.1.714426.3.579.2. 462 Unknown [id number] 2.840.1.289113.3.579.2. 462 Unknown [id number] 2.16840.1.581829.3.579.2. 462 Unknown [id number] 2.16.840.1.837313.3.579.2. 462 Unknown [id number] 2.16.840.1.224012.3.579.2. 462 Unknown [id number] 2.16.840.1.750402.3.579.2. 462 Unknown [id number] 2.16.840.1.052504.3.579.2. 462 Unknown [id number] 2.16.840.1.572021.3.579.2. 462 Unknown [id number] 2.16.840.1.108021.3.579.2. 462 Unknown [id number] 2.16.840.1.360944.3.579.2. 462 Unknown [id number] 2.16.840.1.660947.3.579.2. 462 Unknown [id number] 2.16.840.1.924524.3.579.2. 462 Unknown [id number] 2.16.840.1.297737.3.579.2. 462 Unknown [id number] 2.16.840.1.096738.3.579.2. 462 Unknown [id number] 2.16.840.1.095455.3.579.2. 462 Unknown [id number] 2.16.840.1.642542.3.579.2. 462 Unknown [id number] 2.16.840.1.603225.3.579.2. 462 Unknown [id number] 2.16.840.1.131985.3.579.2. 462 Unknown [id number] 2.16.840.1.497741.3.579.2. 462 Unknown [id number] 2.16.840.1.521690.3.579.2. 462 Unknown [id number] 2.16.840.1.926852.3.579.2. 462 Unknown [id number] 2.16.840.1.281258.3.579.2. 462 Unknown [id number] 2.16.840.1.307143.3.579.2. 462 Unknown [id number] 2.16.840.1.900654.3.579.2. 462 Unknown [id number] 2.16.840.1.370850.3.579.2. 462 Unknown [id number] 2.16.840.1.366237.3.579.2. 462 Unknown [id number] 2.16.840.1.137127.3.579.2. 462 Unknown [id number] 2.16.840.1.245499.3.579.2. 462 Unknown [id number] 2.16840.1.598856.3.579.2. 462 Unknown [id number] 2.840.1.386267.3.579.2. 462 Unknown [id number] 2.840.1.406094.3.579.2. 462 Unknown [id number] 2.840.1.666218.3.579.2. 462 Unknown [id number] 2.840.1.234080.3.579.2. 462 Unknown [id number] 2.16840.1.340772.3.579.2. 462 Unknown [id number] 2.16.840.1.657917.3.579.2. 462 Unknown [id number] 2.16.840.1.284671.3.579.2. 462 Unknown [id number] 2.16.840.1.784966.3.579.2. 462 Unknown [id number] 2.16.840.1.682747.3.579.2. 462 Unknown [id number] 2.16.840.1.423276.3.579.2. 462 Unknown [id number] 2.16.840.1.574979.3.579.2. 462 Unknown [id number] 2.16840.1.348175.3.579.2. 462 Unknown [id number] 2.16.840.1.310847.3.579.2. 462 Unknown [id number] 2.16.840.1.289173.3.579.2. 462 Unknown [id number] 2.16.840.1.056403.3.579.2. 462 Unknown [id number] 2.16.840.1.441393.3.579.2. 462 Unknown [id number] 2.16.840.1.886585.3.579.2. 462 Unknown [id number] 2.16.840.1.240233.3.579.2. 462 Unknown [id number] 2.16.840.1.538391.3.579.2. 462 Unknown [id number] 2.16.840.1.804060.3.579.2. 462 Unknown [id number] 2.16.840.1.762332.3.579.2. 462 Unknown [id number] 2.16.840.1.201683.3.579.2. 462 Social History Date Type Detail Facility [facility] Work Phone: Start: 08-20-2021 End: 05-04-2023 Tobacco smoking status NHIS Unknown if ever smoked [facility] Start: 07-01-2020 None [facility] Start: 09-08-2020 With Family [facility] Start: 05-25-2020 Cigarettes [facility] Start: 1985 Sex Assigned At Female [facility] Start: 11-16-2022 End: 02-11-2024 Tobacco smoking status Smokes tobacco daily (finding) [facility] Sex Assigned At Sex [facility] Start: 09-02-2004 History of tobacco use Cigarette Smo ker [facility] Start: 11-16-2022 End: 06-21-2024 Cigarettes smoked current (pack per day) - Reported 1 [facility] Start: 11-16-2022 End: 02-11-2024 Tobacco use and exposure Smokeless tobacco non-user [facility] Start: 06-25-2020 End: 11-16-2022 Alcohol intake Current non-drinker of alcohol (finding) [facility] Start: 01-27-2020 End: 06-21-2024 Social connection and isolation panel [facility] Do you belong to any clubs or organizations such as religion groups, unions, fraternal or athletic groups, or school groups? No [facility] Are you now , , , , never or living with a partner? [facility] How often to you hav e a drink containing alcohol? Monthly or less [facility] Work Phone: How many standard drinks containing alcohol do you have on a typical day? 3 or 4 [facility] Work Phone: How often do you hav e 6 or more drinks on 1 occasion? Less than monthly [facility] Work Phone: How hard is it for y ou to pay for the very basics like food, housing, medical care, and heating Hard [facility] Work Phone: Adult Depression Screening Assessment 1 [facility] Do you feel stress - tense, restless, nervous, or anxious, or unable to sleep at night because your mind is troubled all the time - these days [OSQ] Only a little [facility] (I/We) worried wheth er (my/our) food would run out before (I/we) got money to buy more. Never true [facility] Work Phone: Start: 01-27-2020 Education 12 [facility] Start: 12-09-2016 End: 11-16-2022 Tobacco Comment Childhood home parents smoked outside. [facility] Start: 1985 Sex Assigned At Not on file [facility] Start: 05-26-2020 End: 12-31-2020 Exposure to SARS-CoV-2 (event) Not sure [facility] Start: 06-21-2024 Alcoholic beverage intake Current drinker of alcohol (finding) [facility] Start: 03-02-2021 Alcohol Comment occasionally [facility] Start: 02-24-2022 Gender identity Identifies as female gender (finding) [facility] Start: 02-24-2022 Sexual orientation Heterosexual (fin ding) [facility] NEGATED: Highlighted row [facility] Medical Equipment Procedure Code Equipment Code Equipment Origin al Text Equipment Identifier Dates Vaginal hysterectomy SEALANT,JASWINDER SEAL HEMOSTATIC 5ML FDA Start: 03-22-2022 Vaginal hysterectomy ( [id number] FDA Start: 03-22-2022 Vaginal hysterectomy SEALANT,JASWINDER SEAL [...] 02-07-2020 Thyroidectomy FDA Start: 02-07-2020 Laparoscopy, diagnostic ([id number]) ()[id number] FDA Start: 04-15-2022 Acetone (Urine) Test (Ketone [...] [facility] 08-15-2022 Functional Status [facility] 04-16-2022 Functional status Ambulates [facility] Work Phone: 03-23-2022 Functional status Up ad dylan [facility] Work Phone: Mental Status Date Assessment Result Facility 09-29-2023 Cognitive function Awake;Alert;A ppropriate;Follow s Commands [facility] Work Phone: 06-29-2023 Cognitive function Awake;Alert;A ppropriate;Follow s Commands [facility] Work Phone: 04-17-2023 Cognitive function Awake [facility] Work Phone: 02-14-2023 Cognitive function Voice/Name [facility] Work Phone: 12-25-2022 Cognitive function Voice/Name [facility] Work Phone: 08-17-2022 Cognitive function Awake;Alert;Appropriat [facility] Work Phone: 08-15-2022 Mental Status Orientation Oriented x 4 [facility] 08-15-2022 Mental Status [facility] 07-17-2022 Cognitive function Voice/Name [facility] Work Phone: 04-18-2022 Cognitive function Awake;Alert;A ppropriate;Follow s Commands [facility] Work Phone: 04-16-2022 Cognitive function Voice/Name [facility] Work Phone: 03-30-2022 Cognitive function Awake;Alert;A ppropriate;Follow s Commands [facility] Work Phone: 03-23-2022 Cognitive function Voice/Name [facility] Work Phone: 03-23-2022 [facility] function [facility]ate[facility] Work Phone: 11-27-2021 Cognitive function Appropriate;[facility] Work Phone: 08-25-2021 Cognitive function Level Of Cons ciousness Awake;Alert;Appropriate;Follow s Commands [facility] Work Phone: Clinical Notes 2018 to [...] Resource Strain: High Risk (02/19/2020) Received from [facility] Overall Financial Resource Strain (CARDIA) Difficulty of Paying Living Expenses: Hard Food Insecurity: No Food Insecurity (02/19/2020) Received from [facility] Hunger Vital Sign Worried About Running Out of Food in the Last Year: Never true Ran Out of Food in the Last Year: Never true Transportation Needs: No Transportation Needs (02/19/2020) Received from [facility] PRAPARE - Transportation Lack of Transportation (Medical): No Lack of Transportation (Non-Medical): No Physical Activity: Insufficiently Active (01/27/2020) Received from [facility] Exercise Vital Sign Days of Exercise per Week: 2 days Minutes of Exercise per Session: 20 min Stress: No Stress Concern Present (01/27/2020) Received from [facility] Italian Garber of Occupational Health - Occupational Stress Questionnaire Feeling of Stress : Only a little Social Connections: Moderately Isolated (01/27/2020) Received from [facility] Social Connection and Isolation Panel [NHANES] Frequency of Communication with Friends and Family: More than three times a week Frequency of Social Gatherings with Friends and Family: Twice a week Attends Rastafarian Services: Never Active Member of Clubs or Organizations: No Attends Club or Organization Meetings: Never Marital Status: Housing Stability: Low Risk (01/27/2020) Received from [facility] Housing Stability Vital Sign Unable to [...] BY TOMASZ ACE JR., ON 06/21/2024 14:55:06 [facility] 06-21-2024 History of Presen t illness [...] Resource Strain: High Risk (02/19/2020) Received from [facility] Overall Financial Resource Strain (CARDIA) Difficulty of Paying Living Expenses: Hard Food Insecurity: No Food Insecurity (02/19/2020) Received from [facility] Hunger Vital Sign Worried About Running Out of Food in the Last Year: Never true Ran Out of Food in the Last Year: Never true Transportation Needs: No Transportation Needs (02/19/2020) Received from [facility] PRAPARE - Transportation Lack of Transportation (Medical): No Lack of Transportation (Non-Medical): No Physical Activity: Insufficiently Active (01/27/2020) Received from [facility] Exercise Vital Sign Days of Exercise per Week: 2 days Minutes of Exercise per Session: 20 min Stress: No Stress Concern Present (01/27/2020) Received from [facility] of Occupational Health - Occupational Stress Questionnaire Feeling of Stress : Only a little Social Connections: Moderately Isolated (01/27/2020) Received from [facility] Social Connection and Isolation Panel [NHANES] Frequency of Communication with Friends and Family: More than three times a week Frequency of Social Gatherings with Friends and Family: Twice a week Attends Rastafarian Services: Never Active Member of Clubs or Organizations: No Attends Club or Organization Meetings: Never Marital Status: Housing Stability: Low Risk (01/27/2020) Received from [facility] Housing Stability Vital Sign Unable to [...] - Primary Relevant Orders Ambulatory Ref to Lyida/Blanca (PT/OT/ST) Patient is a pleasant 39-year-old female [...] cam boot immobilization. documented in this encounter [facility] 09-30-2023 Hospital Discharg e instructions Additional Instructions 1. Apply ice 6-8 times a day 2. Avoid neck movement it causes you pain. 3. If you develop weakness in your hands or difficulty using your upper extremity return to the emergency room otherwise follow-up with your doctor Dr. London [facility] Work Phone: 09-29-2023 Discharge summary Note Date/Time September 29, 2023 3:52p [facility] Medical Records Department [address] [place] [address] Emergency Department Summary 09/29/23 MR#: [id number] Acct: [id number] Name: LANA RIVERA Rep #:[id number] : 1985 38 From: Sorin Jacobs MD [...] Prior similar symptoms: Yes Recent Illness/Hospitalization: Yes [facility] Medical History ADHD (attention deficit hyperactivity disorder), [...] % (Auto) 59.6 Lymph % (Auto) 26.8 [place] % (Auto) 9.4 Eos % (Auto) 3.4 [...] your Primary Care Provider. Call [facility] ([phone]) or report to the closest Emergency Room. Call 911 if necessary. 09/29/23 1611 <Electronically signed by Sorin Jacobs MD> Cosigner Signature (if applicable): CC: Dr. Aleena London MD ~ Signed [facility] Work Phone: 1(266) 450-144705-10-2024 Hospital Discharge instructions Additional Instructions 1. Apply ice 6-8 times a day 2. Avoid neck movement it causes you pain. 3. If you develop weakness in your hands or difficulty using your upper extremity return to the emergency room otherwise follow-up with your doctor Dr. Curry [facility] Work Phone: 1(570) 629-838603-27-2024 NoteHNO ID: [id number] Author: JAYLA MEDINA APRN.CROSSTIE INSPECTOR Service: ? Author Type: Nurse Practitioner Type: [...] years as her is s/p vasectomy. Her Laboratory Coordinator is Dr. Garcia and Dr. Moore IMAGING: [...] negative Last mammogram: 2020, normal Last colonoscopy: N/[facility]03-27-2024 History of Present illness Narrative* Jayla Medina APRN.CROSSTIE INSPECTOR - 08/16/2023 2:30 PM EDT PATIENT DID [...] years as her is s/p vasectomy. Her Laboratory Coordinator is Dr. Garcia and Dr. Moore IMAGING: [...] normal Last colonoscopy: N/A [facility] Discharge summary Author Ashutosh Barajas [facility] July 18, 2023 11:41pm Note Date/Time July 18, 2023 11:36pm [facility] Medical Records Department [address] [place] [address] Emergency Department Summary 07/18/23 MR#: [id number] Acct: [id number] Name: LANA RIVERA Rep #:[id number] : 1985 38 From: Ashutosh Barajas MD [...] pain or shortness of breath or syncope. [facility] Medical History Abdominal pain ADHD (attention deficit [...] additional social history: nano [facility] ROS ED Constitutional Constitutional ED: Denies chills or [...] your Primary Care Provider. Call [facility] ([phone]) or report to the closest Emergency Room. [...] cc: Dr. Aleena London MD ~* Signed [facility] Work Phone: 1(147) 851-670911-22-2023 [address] [facility]. Explained that we do not except [employer]. State that she will call Pt to let her know. [facility] Telephone encounter Note* Telephone Encounter - Dimple Lewis - 04/12/2023 12:05 PM EST Spoke with Sandra at [facility]. Explained that we do not except [employer]. State that she will call Pt to let her know. Ok to close [id number] Miscellaneous Notes* Telephone Encounter - Dimple Lewis - 04/12/2023 12:05 PM EST Spoke with Sandra at [facility]. Explained that we do not except [employer]. State that she will call Pt to let her know. Ok to close referral documented in this encounterSMercer [facility] [id number] Procedure [facility]09-14-2023 Miscellaneous Notes* Telephone Encounter - Riya [...] Stark - 02/02/2023 2:01 PM EDT Lana Giselle Miguel is calling Nima Kaur MD today with concern regarding appointment on 02/06 withGyn. Patient asking who scheduled appointment because she did not. Please return call to patient. Patient has been identified by name and birthdate. Duration of symptoms: N/A Person calling: self Call patient at: on cell [phone] (home) [phone] (cell) Was an appointment scheduled: No Closing statement: Results or non-symptom based questions: Thank you for calling [facility], your call will be returned within the next business day. Radha Stark documented in [facility]08-[facility]-2023 Discharge summary Author Stephany Robbins [facility] December 25, 2022 2:24pm Note Date/Time December 25, 2022 12: 56pm [facility] Medical Records Department [address] [place] [address] Emergency Department Summary 12/25/22 MR#: [id number] Acct: [id number] Name: LANA RIVERA Rep #:[id number] : 1985 37 From: Ry Enamorado MD [...] a chronic smoker's cough which is unchanged. [facility] <ADRI Burgess - Last Filed: 12/25/22 14:24> [facility] Medical History Abdominal pain ADHD (attention [...] % (Auto) 58.5 Lymph % (Auto) 26.7 [place] % (Auto) 7.8 Eos % (Auto) 5.7 [...] Signed: Raul Odonnell MD at 13:33 EDT Reading Location ID and State: [facility] [place] Tel , Service support , ED attending interpretation of 2- view chest x-ray shows normal heart size, no acute infiltrate, edema, or effusion. EKG Initial EKG: Attestation: I personally reviewed and interpreted this EKG as follows: Comments: ED attending interpretation of EKG is normal sinus rhythm at 80 bpm, normal intervals, no ectopy, no STEMI criteria <Dr. Ry Enamorado MD - Last Filed: 12/25/22 13:56> [facility] Narrative Medical decision making narrative: I have [...] % (Auto) 58.5 Lymph % (Auto) 26.7 [place] % (Auto) 7.8 Eos % (Auto) 5.7 [...] problems, contact your Primary Care Provider. Call imbookin ([place]) Registry ([phone]) or report to the closest Emergency Room. Call 911 if necessary. 12/25/22 1356 <Electronically signed by Ry Enamorado MD> Cosigner Signature (if applicable): 12/25/22 1424 <Electronically signed by Stephany RUSH> CC: Dr. Aleena London MD ~ Signed [facility] Work Phone: 1(262) 191-826107-01-2023 Discharge summary Author Jesi Padilla [facility] November 20, 2022 12:04am Note Date/Time November 19, 2022 9:23p m [facility] Medical Records Department [address] [place] [address] Emergency Department Summary 11/19/22 MR#: [id number] Acct: [id number] Name: LANA RIVERA Rep #:[id number] : 1985 37 From: Jesi Padilla MD [...] some of her pain possibly from scarring. [facility] Medical History Abdominal pain ADHD (attention deficit [...] liver that are stable. She hasseen her SPACE SCHEDULER and then a specialist in [place] but they do not want to remove [...] % (Auto) 55.7 Lymph % (Auto) 30.7 [place] % (Auto) 8.1 Eos % (Auto) 4.7 [...] Instructions: Follow-up with Dr. Tracy and your senior quantity surveyor. Disposition Disposition: Home, Self Care What to do if you have Problems For any increased pain, shortness of breath, bleeding, nausea or vomiting, chestpain, or any unexpected problems, contact your Primary Care Provider. Call imbookin ([place]) Registry ([phone]) or report to the closest Emergency Room. Call 911 if necessary. 11/20/22 0004 <Electronically signed by Jesi Padilla MD> Cosigner Signature (if applicable): CC: Dr. Aleena London MD ~ Signed [facility] Work Phone: 1([phone]) 449-606306-28-2023 NoteHNO ID: [id number] Author: LUKASZ EUBANKS MD Service: ? Author [...] years as her is s/p vasectomy. Her Laboratory Coordinator is Dr. Garcia and Dr. Moore The [...] bleeding, vaginal discharge and vaginal pain. 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 HRT use: No. History of abnormal pap: Yes, 2 (more content not included)...[facility]06-28-2023 History of Present illness Narrative* Lukasz [...] years as her is s/p vasectomy. Her Laboratory Coordinator is Dr. Garcia and Dr. Moore The history is provided by the patient. ROS: Review of Systems Constitutional: Negative for activity change, appetite change, fatigue, fever and unexpected weightchange. Cardiovascular: Negative for chest pain and palpitations. Gastrointestinal: Positive for abdominal pain. Negative for constipation, diarrhea, nausea and vomiting. Genitourinary: Positive for pelvic pain. Negative for vaginal bleeding, vaginal discharge and vaginal pain. 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: OB History OB History T3 L2 SAB0 IAB1 Ectopic0 Multiple0 Live Births2 Dry Curer History LMP: 04/22/2020, Having periods Age at Menarche: Age at First : Age at Menopause: Dry Curer History Comments: Sexual Activity: Yes; Male Contraception: [...] referrals to pelvic floor physical therapy and [facility] Pelvic pain clinic for further evaluation and [...] which included preparing to see the patient, [id number] patient care, completing clinical documentation, obtaining and/or reviewing separately obtained history, performing a medically appropriate examination, and counseling and educating the patient/family/caregiver. Lukasz Eubanks MD, MS Gynecologic Oncologist documented [facility] Hospital Discharge instructions Patient Education 08/15/2022 16:51:47 ED Pain Management (04/2018)(CUSTOM) WELCOME Pain Management in our Emergency/Acute Care Facility Our staff understands that pain relief is important when someone is hurt or needs emergency care. However, providing ongoing pain relief is often complex. We recommend this be done through your primary health care provider such as your family doctor or automobile painter. Because mistakes or misuses of pain [...] show a valid photo ID (like a tractor trailer driver's license) when you check into the [...] or other controlled substance, we check the [place] Automated Rx Reporting system (OARRS) or a [...] Monday: or call the Crisis Intervention Center [facility] at [phone]. It is against the law to attempt to obtain controlled substance pain medicines by deceiving the health care provider caring for you. This can include getting multiple prescriptions from more than oneprovider or using someone else s name to obtain a prescription. Follow Up Care 08/15/2022 15:50:06 With:ALEENA LONDON MD Address: [address] [place] [phone] When:2-4 days [facility] 03-27-2023 Note Discharge Instructions Thank you for allowing [facility] to assist you with your healthcare needs. The following is importantdischarge information regarding your hospital visit. Diagnosis from Today's Visit Lower leg pain-swelling What to Do Next Instructions from Your Care Team No qualifying data available. Post Acute Orders No qualifying data available. You Need to Schedule the Following Appointments Follow Up with ALEENA LONDON MD When Within 2-4 days Where: [place] [address]- [phone] Allergies Latex (Rash) penicillin (Rash) Medications Please [...] provider such as your family doctor or automobile painter. Because mistakes or misuses of pain [...] show a valid photo ID (like a tractor trailer driver's license) when you check into the [...] or other controlled substance, we check the [place] Automated Rx Reporting system (OARRS) or a [...] Monday: or call the Crisis Intervention Center [facility] at [phone]. It is against the law to attempt [...] to receive it can visit one of [facility] vaccine clinics. There are many vaccine clinic locations within the [facility]. For locations and available times, please visit www.gettheshot.coronavirus.[place].gov/. It is important to note that some COVID mobile vaccine clinics are held outdoors and may be canceled in rainy or stormy conditions. To learn more about pediatric vaccinations (ages 5-11), we invite you to visit the [facility] webpage. [email or web address]/[email or web address] [email or web address] learn more about the COVID-19 vaccine, we invite you to visit the CDC website for a list of frequently asked questions. https://www.cdc.gov/coronavirus/2019-ncov/vaccines/faq.html [email or web address] Patient Portal Access Instructions: Stay connected with your healthcare team and access your personal medical information anytime with the [facility] Patient Portal. If you would like a full copy of your medical records please contact the [facility] Medical Records Department Monday through Monday between 8a.m. and 4:30p.m. Please follow the directions below to access the portal: 1.Access the email account you provided upon registration to the [facility].2.Look for an invitation email from [facility].3.Open the email and access the invitation link: Accept Invitation to [facility] [email or web address].Fill in the required still to create your account. Sign into [email or web address] with your username and password that you [...] you will allow to register on the [facility] Patient Portal for access to your information. You can also access the [facility] Patient Portal on the [employer] [place] deidre. Simply click on Health Records under [email or web address] and then click on the Sr.Pago logo. HOW TO SAFELY DISPOSE OF PRESCRIPTION [...] Call your local pharmacy or go to http://bit.Netccm/4S1Ld9r to find one close to you.3.Make use of household items: Use cat litter or old coffee grounds to dispose medications if other options arenot available. Mix your drugs with these household products, seal them in an airtight container andthrow it into the garbage. Call [facility]: [phone] to be sure your drugs can be [...] aware that I should contact my doctor. 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 Signature: Date/Time: Relationship to Patient: Witness Name/Signature: Date/Time: [facility]08-12-2021 History of Present illness Narrative * [...] 31, 2020 1:01 PM documented in [facility] History of Present illness Narrative* Zully Arana (Tech), Tech - 06/25/2020 3:40 PM EST Radiology Service [...] 25, 2020 3:44 PM documented in [facility]12-[facility] History of Past illness Narrative* Problem [...] of this encounter (statuses as of 02/03/2023) [facility] of Past illness Narrative* Problem [...] of this encounter (statuses as of 07/08/2023) [facility] of Past illness Narrative* Problem [...] of this encounter (statuses as of 08/30/2023) [facility] Jacobs [facility] June 10, 2022 11:20am Note Date/Time June 10, 2022 9 :38am [facility] Medical Records Department [address] [place] [address] Emergency Department Summary 06/10/22 MR#: [id number] Acct: [id number] Name: LANA RIVERA Rep #:[id number] : 1985 37 From: Sorin Jacobs MD [...] return to the emergency room with imaging. [facility] Medical History Abdominal pain Acute bronchitis, unspecified [...] % (Auto) 56.4 Lymph % (Auto) 26.4 [place] % (Auto) 8.3 Eos % (Auto) 8.0 [...] your Primary Care Provider. Call [facility] ([phone]) or report to the closest Emergency Room. Call 911 if necessary. 06/10/22 1120 <Electronically signed by Sorin Jacobs MD> Cosigner Signature (if applicable): CC: Dr. Aleena London MD ~ Signed [facility] Work Phone: Discharge summary Author Yusuf Apple [facility] February 14, 2023 7:59am Note Date/Time February 14, 2023 7:56am [facility] Medical Records Department [address] [place] [address] Instructions for Home/Discharge Instructions 02/14/23 0756 MR#: [id number] Acct: [id number] Name: LANA RIVERA Rep #:[id number] : 1985 37 From: Yusuf Apple DO PCP: Dr. Aleena London MD Status[place] [facility] [place] Instructions Diet Discharge Diet: No restrictions [...] % cream with perineal applicator 1 applic SD QD-BID PRN (Reason: itching) Qty: 30 2RF [...] can be placed): Home, Self Care 02/14/23 2138<Electronically signed by Yusuf Apple DO>[facility] CC: Dr. Aleena London MD ~ Signed [facility] Work Phone: Discharge summary Author Ry Enamorado [facility] May 04, 2023 1:14pm Note Date/Time May 04, 2023 1:06pm [facility] Medical Records Department [address] [place] [address] Emergency Department Summary 05/04/23 MR#: [id number] Acct: [id number] Name: LANA RIVERA Rep #:[id number] : 1985 38 From: Ry Enamorado MD [...] sclera of her right eye. Saw her bodywork therapist at [facility] told her it was a subconjunctival [...] your Primary Care Provider. Call [facility] ([phone]) or report to the closest Emergency Room. Call 911 if necessary. 05/04/23 1314 <Electronically signed by Ry Enamorado MD> Cosigner Signature (if applicable): CC: Dr. Aleena London MD ~ Signed [facility] Work Phone: Evaluation + Plan note No data available for this section [facility] Evaluation note* Diagnosis Onset Date Resolution [...] abdominal pain acute Tinnitus acute Vertigo acute [facility] Work Phone: Evaluation note* Diagnosis Onset [...] (nonalcoholic steatohepatitis) acute Chronic RUQ pain chronic [facility] Work Phone: Evaluation note* Diagnosis Onset [...] Palpitations acute Menorrhagia with irregular cycle acute 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 Work Phone: Evaluation note* Diagnosis Onset [...] Irritant contact dermatitis due to plant acute [facility] Work Phone: Evaluation note* Diagnosis Onset [...] upper extremities chronic Vitamin d deficiency chronic [facility] Work Phone: Evaluation note* Diagnosis Onset [...] deficiency chronic Menorrhagia with irregular cycle acute [facility] Work Phone: Evaluation note* Diagnosis Onset [...] (nonalcoholic steatohepatitis) acute Chronic RUQ pain chronic [facility] Work Phone: Evaluation note* Diagnosis Onset [...] (nonalcoholic steatohepatitis) acute Chronic RUQ pain chronic 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 Metabolic syndrome chronic Menorrhagia with irregular [...] disorder with panic attacks chronic Almaz's thyroiditis counselor marriage and family sarai Hypertension chronic Metabolic syndrome chronic PCOS (polycystic ovarian syndrome) chronic Personal history of malignant melanoma chronic Tobacco abuse chronic Abdominal pain resolved Chest pain resolved History of hypertension reso lved Postoperative abscess acute Postoperative abscess acute Postoperative pain acute S/P vaginal hysterectomy acu te Nicotine dependence, cigarettes, uncomplicated resolved Ovarian cyst acute Postoperative abscess acute Postoperative pain acute Almaz's thyroiditis counselor marriage and family sarai Hypertension chronic Vitamin d deficiency chronic Fatigue noneactive Varicose vein of leg noneact jimmie [facility] Work Phone: Evaluation note* Diagnosis Onset [...] disorder with panic attacks chronic Almaz's thyroiditis counselor marriage and family sarai Hypertension chronic Metabolic syndrome chronic PCOS (polycystic ovarian syndrome) chronic Personal history of malignant melanoma chronic Tobacco abuse chronic Abdominal pain resolved Chest pain resolved History of hypertension reso lved Postoperative abscess acute Postoperative abscess acute Postoperative pain acute S/P vaginal hysterectomy acu te Nicotine dependence, cigarettes, uncomplicated resolved Ovarian cyst acute Postoperative abscess acute Postoperative pain acute Almaz's thyroiditis counselor marriage and 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 Work Phone: Evaluation note* Diagnosis Onset [...] disorder with panic attacks chronic Almaz's thyroiditis counselor marriage and family sarai Hypertension chronic Metabolic syndrome chronic PCOS (polycystic ovarian syndrome) chronic Personal history of malignant melanoma chronic Tobacco abuse chronic Abdominal pain resolved Chest pain resolved History of hypertension reso lved Postoperative abscess acute Postoperative abscess acute Postoperative pain acute S/P vaginal hysterectomy acu te Nicotine dependence, cigarettes, uncomplicated resolved Ovarian cyst acute Postoperative abscess acute Postoperative pain acute Almaz's thyroiditis counselor marriage and family sarai Hypertension chronic Vitamin d deficiency chronic Fatigue noneactive Varicose vein of leg noneact jimmie Ovarian cyst acute Acute bronchitis noneactive NAFLD (nonalcoholic fatty liver disease) chronic RUQ abdominal pain chronic [facility] Work Phone: Evaluation note* Diagnosis Onset Date Resolution Status Postoperative pain acute Urinary hesitancy resolved Class II obesity acute Fibromyalgia affecting multiple sites acute MARCELINO (nonalcoholic steatohepatitis) acute Postoperative abscess acute Postoperative pain acute S/P vaginal hysterectomy acu te Sciatica, right side acute Type 2 diabetes mellitus acu te Chronic back pain chronic 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 Almaz's thyroiditis counselor marriage and family sarai Hypertension chronic Metabolic syndrome chronic PCOS (polycystic ovarian syndrome) chronic Personal history of malignant melanoma chronic Tobacco abuse chronic Abdominal pain resolved Chest pain resolved History of hypertension reso lved Postoperative abscess acute Postoperative abscess acute Postoperative pain acute S/P vaginal hysterectomy acu te Nicotine dependence, cigarettes, uncomplicated resolved Ovarian cyst acute Postoperative abscess acute Postoperative pain acute Almaz's thyroiditis counselor marriage and family sarai Hypertension chronic Vitamin d deficiency chronic Fatigue noneactive Varicose vein of leg noneact jimmie Ovarian cyst acute Acute bronchitis noneactive NAFLD (nonalcoholic fatty liver disease) chronic RUQ abdominal pain chronic [facility] Work Phone: Evaluation note* Diagnosis Onset Date Resolution Status Ovarian cyst acute Acute bronchitis noneactive NAFLD (nonalcoholic fatty liver disease) chronic RUQ abdominal pain chronic Pectoralis muscle strain non eactive Cough acute Anxiety and depression chron ic Hypertension chronic Left shoulder pain chronic Left shoulder pain chronic [facility] Work Phone: Evaluation note* Diagnosis Onset Date Resolution Status NAFLD (nonalcoholic fatty liver disease) chronic RUQ abdominal pain chronic Pectoralis muscle strain non eactive Cough acute Anxiety and depression chron ic Hypertension chronic Left shoulder pain chronic Left shoulder pain chronic Carpal tunnel syndrome of right wrist noneactive [facility] Work Phone: Evaluation note* Diagnosis Onset Date Resolution Status Pectoralis muscle strain non eactive Cough acute Anxiety and depression chron ic Hypertension chronic Left shoulder pain chronic Left shoulder pain chronic Carpal tunnel syndrome of right wrist noneactive Carpal tunnel syndrome of right wrist noneactive [facility] Work Phone: Evaluation note* Diagnosis Onset Date Resolution Status Pectoralis muscle strain non eactive Cough acute Anxiety and depression chron ic Hypertension chronic Left shoulder pain chronic Left shoulder pain chronic Carpal tunnel syndrome of right wrist noneactive Carpal tunnel syndrome of right wrist noneactive NAFLD (nonalcoholic fatty liver disease) chronic RUQ abdominal pain chronic [facility] Work Phone: Evaluation note* Diagnosis Onset [...] e Possible exposure to STD non eactive [facility] Work Phone: Evaluation note* Diagnosis Onset [...] e Possible exposure to STD non eactive [facility] Work Phone: Evaluation note* Diagnosis Onset [...] Anxiety and depression chron ic Hypertension chronic [facility] Work Phone: Evaluation note* Diagnosis Onset [...] left acute Lumbar facet joint syndrome acute [facility] Work Phone: Evaluation note* Diagnosis Onset [...] viral diseases acute Acute sinusitis, unspecified resolved [facility] Work Phone: Evaluation note* Diagnosis Onset [...] Acute sinusitis, unspecified resolved Orthopedic aftercare acute [facility] Work Phone: Evaluation note* Diagnosis Onset [...] Acute sinusitis, unspecified resolved Orthopedic aftercare acute [facility] Work Phone: Evaluation note* Diagnosis Onset [...] Orthopedic aftercare acute Climacteric acute Mastalgia acute [facility] Work Phone: Evaluation note* Diagnosis Onset [...] Orthopedic aftercare acute Climacteric acute Mastalgia acute [facility] Work Phone: Evaluation note* Diagnosis Onset [...] liver disease) chronic RUQ abdominal pain chronic [facility] Work Phone: Evaluation note* Diagnosis Pelvic pain in female- Primary Unspecified symptom associated with female genital organs [facility] Diagnosis Onset Date Resolution Status [...] acu te Pelvic pain acute Vaginitis acute [facility] Work Phone: Evaluation note* Diagnosis Onset [...] acu te Pelvic pain acute Vaginitis acute [facility] Work Phone: Evaluation note* Diagnosis NO SHOW- Primary [facility] Diagnosis Onset Date Resolution Status [...] chronic RUQ abdominal pain chronic Vaginitis acute [facility] Work Phone: Evaluation note* Diagnosis Onset [...] chronic Vaginitis acute Class II obesity chronic [facility] Work Phone: Evaluation note* Diagnosis Onset [...] Acute pharyngitis acute Breast pain, right acute [facility] Work Phone: Evaluation note* Diagnosis Pain- Primary Generalized pain documented in this encounter [facility] note* Diagnosis Preoperative examination- Primary Preoperative examination, [...] of left shoulder documented in this encounter [facility] note* Diagnosis Preoperative examination- Primary Preoperative examination, [...] acute or chronic documented in this encounter [facility] note* Diagnosis Onset Date Resolution Status Dermatitis [...] liver disease) chronic RUQ abdominal pain chronic [facility] Work Phone: Evaluation note* Diagnosis Plantar fasciitis- Primary Plantar fascial fibromatosis documented in this encounter [facility] Author Yusuf Apple [facility] February 14, 2023 7:11am Note Date/Time February 14, 2023 7:11am [facility] Medical Records Department [address] [place] [address] History & Physical Exam 02/14/23 0711 MR#: [id number] Acct: [id number] Name: LANA RIVERA Rep #:[id number] : 1985 37 From: Yusuf Apple DO PCP: Dr. Aleena London MD Status:R [facility] Location: [place] [address]- History and Physical Date of Admission: 02/14/23 [facility] [address] [place] [address] [place] [address] OFFICE VISIT Date of Service: 11/18/22 MR#: [id number] Acct: [id number] Name: LANA RIVERA Rep #: [id number] : 1985 Provider: Dr. Yusuf Apple DO Age/Sex: 37/F Location: [facility] [email or web address] Status: Signed Intake Vital Signs 09/02/2309:43 11/09/2315:37 [...] at home: Yes additional social history: [employer] right wrist Details: Parts of this documentation were recorded by a scribe, this documentation accurately reflects the service provided and the decisions made by me, Dr. Yusuf Apple, DO 11/18/22 0091. LANA RIVERA is a 37 year old [...] London MD; Dr. Yusuf Apple DO~ Signed [facility] Work Phone: [facility] Work Phone: Hospital Discharge instructions Additional Instructions Do not take your cyclobenzaprine. Take Valium as prescribed as needed. Start your Cymbalta as prescribed by your pain doctor. Start your steroids a report is at the pharmacy. We discussed with Dr. Avilez for possible tramadol as he noted on his consult if needed. Follow- up with your doctors.[facility] Work Phone: Hospital Discharge instructions Additional Instructions Please follow-up outpatient.[facility] Work Phone: Hospital Discharge instructions Additional Instructions Follow-up with Dr. Tracy and your senior quantity surveyor.[facility] Work Phone: Hospital Discharge instructions Additional Instructions Today your cardiac work-up was normal. Based on your examination I think you have musculoskeletal pain in the trapezius and shoulder area and prescribed a different muscle relaxer you can try. You can also add Tylenol 1000 mg every 6 hours to your regimen of ketoprofen. Please follow-up with your primary care doctor.[facility] Work Phone: Hospital Discharge instructions Additional Instructions UpPlease follow-up with your SPACE SCHEDULER for this pain. Lives at antibiotic ointment to the open wounds in your left groin. I we have referred you to general surgery for further evaluation of these lymph nodes and pain in your thigh. You can continue to take your anti-inflammatory (ketoprofen) for pain. Apply cool compresses to the area.[facility] Work Phone: Hospital Discharge instructions Additional [...] discuss further pain management. You can try [id number] 4% exercise Lidoderm patches. Please continue to follow-up with your outpatient ultrasound for your lymph nodes and with surgery as well. I would recommend that you follow-up with your mobile unit assistant. I will give you information for a spine doctor in case this pain is actually coming from your back.[facility] Work Phone: Hospital Discharge instructions Additional Instructions Take baby aspirin every day along with warm/hot compresses to affected area 2-3 times daily until pain resolved.[facility] Work Phone: Hospital Discharge instructions Additional Instructions This should improve over the next week.[facility] Work Phone: Reason for referral (narrative)* Diagnostic Procedure Only (Routine) - Authorized Specialty Diagnoses / Procedures Referred By Elaina wyman Referred To Contact XR IMAGING Diagnoses Pain Procedures XR FOOT GENERAL 3V AP/LAT/OBL RIGHT RADEX FOOT COMPLETE MINIMUM 3 VIEWS Patrick Fontaine [address] [place] [address] [place] [id number] Referral ID Status Reason Start Date Expiration Date Visits Requested Visits Authorized [id number] Authorized Auto-Generat ed Referral 11/20/2023 12/19/2024 1 1 [facility] for referral (narrative)* Diagnostic Procedure Only (Urgent) - Closed Specialty Diagnoses / Procedures Referred By Contac t Referred To Contact XR IMAGING Diagnoses Acute pain of left shoulder Procedures XR SHOULDER GENERAL 3V OR MORE AP/TRUE AP/OTHER LT X-RAY SHOULDER COMPLET MIN 2 VIEWS Kavita Jurado PA-C [address] [place] [address] [place] [address] Referral ID Status Reason Start Date Expiration Date V isits Requested Visits Authorized Closed Auto-Generate d Referral 12/31/2020 01/30/2022 1 1 [facility] for visit Narrative* Diagnostic Procedure Only (Urgent) - Closed Specialty Diagnoses / Procedures Referred By Contac t Referred To Contact XR IMAGING Diagnoses Acute pain of left shoulder Procedures XR SHOULDER GENERAL 3V OR MORE AP/TRUE AP/OTHER LT X-RAY SHOULDER COMPLET MIN 2 VIEWS Kavita Jurado PA-C [address] [place] [address] [place] [address] Referral ID Status Reason Start Date Expiration Date V isits Requested Visits Authorized Closed Auto-Generate d Referral 12/31/2020 01/30/2022 1 1 [facility] Summary Purpose Family History No Family [...] No August 20, 2021 3:48pm Power of Showcase Maker No August 20 3:48pm Advance Directive Response Recorded Date/ Time Advance Directives No June 29, 2021 12:31pm Living Will No August 25, 2021 10:11pm Power of Showcase Maker No August 25 10:11pm Advance Directive Response Recorded Date/ Time Advance Directives No June 29, 2021 12:31pm Living Will No November 27, 2021 1 :20am Power of Showcase Maker No November 27, 2021 1:20am Advance Directive Response Recorded Date/ Time Advance Directives No December 14 10:42am Living Will No December 23, 2021 10:29pm Power of Showcase Maker No December 23 10:29pm Advance Directive Response Recorded Date/ Time Advance Directives No December 24 9:47am Living Will No December 24, 2021 9:47am Power of Showcase Maker No December 24 9:47am Advance Directive Response Recorded Date/ Time Advance Directives No December 24 9:47am Living Will No February 15, 2022 11:42am Power of Showcase Maker No January 11:42am Advance Directive Response Recorded Date/ Time Advance Directives No December 24 9:47am Living Will No March 04 2:10pm Power of Showcase Maker No March 04, 2022 2:10pm Advance Directive Response Recorded Date/ Time Advance Directives No December 24 9:47am Living Will No March 12 12:40pm Power of Showcase Maker No March 12, 2022 12:40pm Advance Directive Response Recorded Date/ Time Advance Directives No December 24 9:47am Living Will No March 22 5:41pm Power of Showcase Maker No March 22, 2022 5:41pm Advance Directive Response Recorded Date/ Time Advance Directives No December 24 8:47am Living Will No March 30 3:11pm Power of Showcase Maker No March 30, 2022 3:11pm Advance Directive Response Recorded Date/ Time Advance Directives No December 24 8:47am Living Will No April 12 4:52pm Power of Showcase Maker No April 12, 2022 4:52pm Advance Directive Response Recorded Date/ Time Advance Directives No December 24 8:47am Living Will No April 12 8:56pm Power of Showcase Maker No April 12, 2022 8:56pm Advance Directive Response Recorded Date/ Time Advance Directives No December 24 8:47am Living Will No April 18 5:38pm Power of Showcase Maker No April 18, 2022 5:38pm Advance Directive Response Recorded Date/ Time Advance Directives No December 24 8:47am Living Will No May 22 11:57pm Power of Showcase Maker No May 22 11:57pm Advance Directive Response Recorded Date/ Time Advance Directives No December 24 8:47am Living Will No June 10 9:17am Power of Showcase Maker No June 10, 2022 9:17am Advance Directive Response Recorded Date/ Time Advance Directives No December 24 8:47am Living Will No July 17 7:06pm Power of Showcase Maker No July 17, 2022 7:06pm Advance Directive Response Recorded Date/ Time Advance Directives No December 24 9:47am Living Will No July 17 8:06pm Power of Showcase Maker No July 17, 2022 8:06pm Advance Directive Response Recorded Date/ Time Advance Directives No December 24 9:47am Living Will No August 26, 2022 3:23pm Power of Showcase Maker No August 26 3:23pm Advance Directive Response Recorded Date/ Time Advance Directives No December 24 9:47am Living Will No November 08, 2022 4:52pm Power of Showcase Maker No November 08 4:52pm Advance Directive Response Recorded Date/ Time Advance Directives No December 24 9:47am Living Will No November 19, 2022 9 :51pm Power of Showcase Maker No November 19, 2022 9:51pm Advance Directive Response Recorded Date/ Time Advance Directives No November 24 2:09pm Living Will No November 25, 2022 2 :14pm Power of Showcase Maker No November 25, 2022 2:14pm Advance Directive Response Recorded Date/ Time Advance Directives No December 13 10:51am Living Will No December 13, 2022 10:51am Power of Showcase Maker No December 13 10:51am Advance Directive Response Recorded Date/ Time Advance Directives No December 13 10:51am Living Will No December 25, 2022 1:19pm Power of Showcase Maker No December 25 1:19pm Advance Directive Response Recorded Date/ Time Advance Directives No December 13 10:51am Living Will No February 04, 2023 7:53pm Power of Showcase Maker No January 7:53pm Advance Directive Response Recorded Date/ Time Advance Directives No December 13 10:51am Living Will No February 08, 2023 6:47pm Power of Showcase Maker No January 6:47pm Advance Directive Response Recorded Date/ Time Advance Directives No January 10:58am Living Will No February 10, 2023 10:58am Power of Showcase Maker No January 10:58am Advance Directive Response Recorded Date/ Time Advance Directives No March 16, 2023 7:15am Living Will No March 16 7:15am Power of Showcase Maker No March 16, 2023 7:15am Advance Directive Response Recorded Date/ Time Advance Directives No March 16, 2023 7:15am Living Will No April 17, 023 4:04pm Power of Showcase Maker No April 17, 2023 4:04pm Advance Directive Response Recorded Date/ Time Advance Directives No March 16, 2023 7:15am Living Will No May 04, 12:57pm Power of Showcase Maker No May 04, 2023 12:57pm Advance Directive Response Recorded Date/ Time Advance Directives No March 16, 2023 7:15am Living Will No July 18, 024 10:49pm Power of Showcase Maker No July 18, 2023 10:49pm Advance Directive Response Recorded Date/ Time Advance Directives No March 16, 2023 7:15am Living Will No July 25, 2023 8:51pm Power of Showcase Maker No July 24 8:51pm Advance Directive Response Recorded Date/ Time Advance Directives No August 07 8:42am Living Will No August 08, 2023 8:42am Power of Showcase Maker No August 07 8:42am Advance Directive Response Recorded Date/ Time Advance Directives No March 16, 2023 8:15am Living Will No July 25, 2023 9:51pm Power of Showcase Maker No July 24 9:51pm Advance Directive Response Recorded Date/ Time Advance Directives No March 16, 2023 8:15am Living Will No September 08, 2023 10:23am Power of Showcase Maker No September 07 10:23am Advance Directive Response Recorded Date/ Time Advance Directives No March 16, 2023 8:15am Living Will No September 29, 2023 3 :36pm Power of Showcase Maker No September 29, 2023 3:36pm Chief Complaint and Reason for Visit Chief Complaint Back Pain, Fall 2 M FU PHONE-COLD SYMPTOMS COVID TEST bp issues 6-8 WK F/UP RUQ PAIN abd pain anxiety /insomnia enlarged liver & spleen FATTY LIVER CP/ANXIETY/REF. 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) 6 WK FU DIZZY SPELLS ABD PAIN neck pain CHEST CONGESTION/COUGH consult ablation ER FU fluid in ears AUB CP/[facility] CERVICAL/ RX HERE 1 MO FU [...] inner thigh PALPS HTN 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) 6 WK FU DIZZY SPELLS ABD PAIN neck pain CHEST CONGESTION/COUGH consult ablation ER FU fluid in ears AUB CP/[facility] CERVICAL/ RX HERE 1 MO FU [...] 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 Complaint 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) 6 WK FU DIZZY SPELLS ABD PAIN neck pain CHEST CONGESTION/COUGH consult ablation ER FU fluid in ears AUB CP/[facility] CERVICAL/ RX HERE 1 MO FU [...] FU fluid in ears AUB /[facility] CERVICAL/ RX HERE 1 MO FU [...] FU fluid in ears AUB /[facility] CERVICAL/ RX HERE 1 MO FU [...] Complaint fluid in ears AUB /[facility] CERVICAL/ RX HERE 1 MO FU [...] Referred By Elaina wyman Referred To Contact Laboratory Coordinator Diagnoses Pelvic pain in female Procedures CONSULT TO GYNECOLOGY Lukasz Eubanks MD [address] [place] [address] Fatmata England DO [address] [place] [address] Referral ID Status Reason Start Date Expiration Date Visits Requested Visits Authorized [id number] Ref Not Required PCP Requested Referral 11/17/2022 11/16/2023 1 1 Additional Source Comments INFORMATION SOURCE (unrecogn ized section and content) DATE CREATED AUTHOR 11/15/2017 [facility] DATE CREATED AUTHOR AUTHOR'S ORGANIZ ATION 11/29/2017 [facility] DATE CREATED AUTHOR AUTHOR'S ORGANIZ ATION 07/07/2022 [facility] DATE CREATED AUTHOR AUTHOR'S ORGANIZ ATION 07/21/2022 [facility] DATE CREATED AUTHOR AUTHOR'S ORGANIZ ATION 10/11/2022 [facility] ([facility]) DATE CREATED AUTHOR AUTHOR'S ORGANIZ ATION 04/14/2023 [facility] DATE CREATED AUTHOR AUTHOR'S ORGANIZ ATION 07/09/2023 [facility] DATE CREATED AUTHOR AUTHOR'S ORGANIZ ATION 08/30/2023 [facility] DATE CREATED AUTHOR AUTHOR'S ORGANIZ ATION 06/26/2024 [facility] DATE CREATED AUTHOR AUTHOR'S ORGANIZ ATION 11/06/2024 [facility] DATE CREATED AUTHOR AUTHOR'S ORGANIZ ATION 04/03/2025 [facility] Goals (unrecognized section and content) Goals [...] Provider, Refer ring Provider Active Rea Poon MAINTENANCE CUSTODIAN, MAINTENANCE CUSTODIAN-C Attending Provider Active Team Status: Inactive Member [...] Provider, Refer ring Provider Active Libertad Stubbs MAINTENANCE CUSTODIAN, MAINTENANCE CUSTODIAN-C Attending Provider Active Team Status: Active Member [...] London MD Primary Care Provider Active Dr. Mark Anthony Haynes MD Attending Provider, Referring Provider Active Team Status: Inactive Member Role Status Dates Dr. Aleena London MD Primary Care Provider Active Dr. Cassidy Moore MD Admit Provid er, Attending Provider, Referring Provider Active Team Status: Inactive Member Role Status Dates Dr. Aleena London MD Primary Care Provider Active Rea Poon MAINTENANCE CUSTODIAN, MAINTENANCE CUSTODIAN-C Attending Provider, Referrin g Provider Active Dr. [...] MD Primary Care Provider Active Rea Poon MAINTENANCE CUSTODIAN, MAINTENANCE CUSTODIAN-C Attending Provider Active Team Status: Inactive Member [...] MD Primary Care Provider Active Rea Poon MAINTENANCE CUSTODIAN, MAINTENANCE CUSTODIAN-C Attending Provider Active Team Status: Inactive Member Role Status Dates Dr. Aleena London MD Primary Care Provider, Refer ring Provider Active Hanh Balderas MAINTENANCE CUSTODIAN, MAINTENANCE CUSTODIAN-C Attending Provider Active Team Status: Inactive Member Role Status Dates Dr. Aleena London MD Primary Care Provider, Refer ring Provider Active Deysi Mcfarlane MAINTENANCE CUSTODIAN, MAINTENANCE CUSTODIAN-C Attending Provider Active Team Status: Active Member [...] MD Primary Care Provider Active Hanh Balderas MAINTENANCE CUSTODIAN, MAINTENANCE CUSTODIAN-C Attending Provider, Referring Provider Active Team Status: Inactive Member Role Status Dates Dr. Aleena London MD Primary Care Provider Active Dr. Ry Enamorado MD Emergency Provider Active Data Architect Manager Relationship Specialty Start Date End Date Dimple Lynn [address] [place] [place] [address] SPACE SCHEDULER 12/15/22 Team Status: Inactive Member Role Status [...] Loly Sierra DO Attending Provider, Emergency P kev Active Team Status: Active Member Role Status [...] Provider, Refer ring Provider Active Greyson Lombardo PA, PA Attending Provider Active Team Status: Inactive Member Role Status Dates Dr. Aleena London MD Primary Care Provider, Refer ring Provider Active ADRI Whyte Attending Provider Active Team Status: Active Member [...] Dr. Greg Melgar DO Referring Provider Active Data Architect Manager Relationship Specialty Start Date End Date Nima Kaur MD [address] [place] [address] PCP - General Family Medicine 04/30/13 02/01/23 Team Status: Inactive Member Role Status Dates Dr. Aleena London MD Primary Care Provider, Refer ring Provider Active MARY ELLEN Marmolejo Attending Provider Active Team Status: Inactive Member Role Status Dates Dr. Aleena London MD Primary Care Provider Active Dr. Ashutosh Barajas MD Emergency Provider Active Team Status: Inactive Member Role Status Dates Dr. Aleean London MD Primary Care Provider Active Dr. Ulices Wilks MD Attending Provider, Referrin g Provider Active Data Architect Manager Relationship Specialty Start Date End Date Aleena London [address] [place] [address] PCP - General 07/27/23 Dimple Lynn [address] [place] [address] Laboratory Coordinator 12/15/22 Team Status: Inactive Member Role Status [...] London MD Primary Care Provider Active Dr. Oscra Fuller MD Attending Provider, Refe rring Provider [...] P rovider, Attending Provider, Referring Provider Active Data Architect Manager Relationship Specialty Start Date End Date Aleena London [address] [place] [address] PCP - General 07/27/23 Dimple Lynn [address] [place] [address] Laboratory Coordinator 12/15/22 Data Architect Manager Relationship Specialty Start Date End Date Nima Kaur MD [address] [place] [address] PCP - General Family Medicine 04/30/13 02/01/23 Data Architect Manager Relationship Specialty Start Date End Date Nima Kaur MD [address] [place] [address] PCP - General Family Medicine 04/30/13 02/01/23 Data Architect Manager Relationship Specialty Start Date End Date Aleena London MD [address] [place], [place] [id number] PCP - General Internal Medicine 03/13/21 Source Comments (unrecognize d section and content) In the event this informatio n is protected by the Federal Confidentiality of Alcohol and Drug Abuse Patient Records regulations: The Federal rules restrict any use of the information to criminally investigate or prosecute any alcohol or drug abuse patient.[facility] the event this information is protected by the Federal Confidentiality of Alcohol and Drug Abuse Patient Records regulations: The Federal rules restrict any use of the information to criminally investigate or prosecute any alcohol or drug abuse patient.[facility] the event this information is protected by the Federal Confidentiality of Alcohol and Drug Abuse Patient Records regulations: The Federal rules restrict any use of the information to criminally investigate or prosecute any alcohol or drug abuse patient.[facility] the event this information is protected by the Federal Confidentiality of Alcohol and Drug Abuse Patient Records regulations: The Federal rules restrict any use of the information to criminally investigate or prosecute any alcohol or drug abuse patient.[facility] the event this information is protected by the Federal Confidentiality of Alcohol and Drug Abuse Patient Records regulations: The Federal rules restrict any use of the information to criminally investigate or prosecute any alcohol or drug abuse patient.[facility] the event this information is protected by the Federal Confidentiality of Alcohol and Drug Abuse Patient Records regulations: The Federal rules restrict any use of the information to criminally investigate or prosecute any alcohol or drug abuse patient.[facility] Reason for Visit (unrecogniz ed section [...] BE BASED ON THE PRIMARY CLINICAL RECORDS. [employer] provides no warranty or guarantee of the accuracy or completeness of information in this document.
== END | disposition home or self-care (01) ==
LOC: RAD 11:46
PROVIDERS: PCP Internal Medicine; Visit Provider Surgery
DX: R79.89 Other specified abnormal findings of blood chemistry (principal)
CPT/HCPCS: 93970

== ENCOUNTER → 2025-04-23 | Outpatient (CLI) | payer MEDICAID, SELFPAY ==
--- NOTE | 2025-04-23 13:06 | NEURO ---
NCS and/or EMG Patient Report Ordering Doctor: Earnest Haynes DATE OF SERVICE: 04/23/25 Lana presents electrodiagnostic testing of the left upper limb. She reports numbness and tingling in the left hand and pain around the left elbow. She has neck pain. Electrodiagnostic impression: Left median motor nerve demonstrates normal distal latency, amplitude and conduction velocity. Left ulnar motor response within normal limits, including conduction across the elbow. Prolonged left median sensory latency at the wrist. Normal left median and left ulnar F-wave wave. Needle EMG testing was performed in the left upper limb. 1+ fibrillations noted in the left triceps, left pronator teres and left lower cervical paraspinals. Motor unit action potentials are of normal amplitude and duration Electrodiagnostic impression: This is an abnormal study in the left upper limb. 1. Electrodiagnostic findings suggestive of acute left C7 radiculopathy. Recommend correlation with cervical spine imaging. 2. Electrodiagnostic finding suggestive of left-sided median mononeuropathy. This consistent with a mild left carpal tunnel syndrome. Multi Select Codes Neurology Neurology Interp Codes: 53569-51 Musc test done w/n test comp (interp) and 81558-51 Nrv cndj test 7-8 studies (interp)
== END | disposition home or self-care (01) ==
LOC: PSN 08:46
PROVIDERS: PCP Internal Medicine; Referring Provider Psychiatry & Neurology Neurology; Visit Provider Psychiatry & Neurology Neurology
DX: R20.2 Paresthesia of skin (principal); M54.2 Cervicalgia
CPT/HCPCS: 95886; 95910

== ENCOUNTER → 2025-04-30 | Outpatient (CLI) | payer MEDICAID, SELFPAY | END | disposition home or self-care (01) | LOC: CVS 11:05 | PROVIDERS: PCP Internal Medicine; Referring Provider Physician Assistant; Visit Provider Physician Assistant | DX: R22.42 Localized swelling, mass and lump, left lower limb (principal); M79.652 Pain in left thigh | CPT/HCPCS: 93971 ==

== ENCOUNTER → 2025-05-06 | Outpatient (CLI) | payer MEDICAID, SELFPAY ==
[2025-05-06 12:12] LABS: Cholesterol 140 mg/dL (<=200); Low Density Lipoprotein Calc. 71 mg/dL; Triglycerides 156 mg/dL; Very Low Density Lipoprotein 31 mg/dL (5-40); cholesterol:hdl ratio screen 3.34
[2025-05-06 12:16] LABS: AST(SGOT) 18 U/L (<=31); Alanine Aminotransfer ALT/SGPT 26 U/L (<=34); Albumin, Serum 4.3 g/dL (3.5-5.0); Alkaline Phosphatase 72 U/L (35-104); Anion Gap 11 (5-15); BUN 8 mg/dL (4-19); BUN/Creat Ratio 11.2 RATIO (10-20); Calcium,Total 9.1 mg/dL (7.6-11.0); Carbon Dioxide 24.9 mmol/L (21.0-32.0); Chloride 104 mmol/L (98-108); Globulin 2.5 g/dL (2.2-4.2); Glucose 170 mg/dL (70-99); Potassium 3.8 mmol/L (3.3-5.1)
[2025-05-07 11:09] LABS: Anti-Smooth Muscle ABS 5 Units (0-19)
== END | disposition home or self-care (01) ==
PROVIDERS: PCP Internal Medicine; Referring Provider Internal Medicine; Visit Provider Internal Medicine
DX: E03.9 Hypothyroidism, unspecified (principal); K76.0 Fatty (change of) liver, not elsewhere classified; I10 Essential (primary) hypertension; E07.9 Disorder of thyroid, unspecified; R63.4 Abnormal weight loss
CPT/HCPCS: 36415; 80053; 80061; 83516; 84439; 84443

== ENCOUNTER 2025-05-20 20:26 | Emergency (ER) | payer MEDICAID, SELFPAY ==
[2025-05-20 20:26] VITALS: BP 145/94; PULSE 8; RESP 16; TEMP 36.6; O2SAT 100; BMI 39.4
--- NOTE | 2025-05-20 20:50 | US_ITS ---
PROCEDURE: US GALLBLADDER 05/20/2025 REASON FOR EXAM: PAIN TECHNIQUE: Procedure Code: USGB Modality: US Procedure: GALLBLADDER COMPARISON: Abdominal ultrasound 11/19/2024, CT 06/18/2024. FINDINGS: Liver: Hepatomegaly with prominent diffuse hepatic steatosis. Gallbladder: Normal. No stones, sludge, wall thickening or tenderness. Common bile duct: Normal measuring up to 0.4 cm diameter. Pancreas: Visualized portions are sonographically unremarkable. Other: Visualized right kidney is unremarkable. No right upper quadrant ascites. US/Gallbladder IMPRESSION: Hepatomegaly with prominent diffuse hepatic steatosis. No cholelithiasis or biliary ductal dilatation. Reading Location: [id number]
--- OUTSIDE RECORDS SUMMARY | 2025-05-20 20:54 | XMS RPT_ITS | CCD ---
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 Aleena London Primary Care Provider 1(33 0) Dr. Aleena London Referring Provider [phone] ADRI Cho Attending Provider Unavailab Lynn DIRECTOR OF ACADEMIC, DIRECTOR OF ACADEMIC-C Deysi Attending Provider Dr. Aleena London Attending Provider [phone] Dr. Ralph Tracy Attending Provider 1(330) Dr. Royce Mckinney Attending Provider [phone] Cassidy oMore Attending Provider 1(330 ) Sherrie DIRECTOR OF ACADEMIC, DIRECTOR OF ACADEMIC-C Hanh Attending Provider [phone] Dr. Aleena London Primary Care Provider [phone] Dr. Aleena London Referring Provider [phone] ADRI Cho Attending Provider UnavailADRI Chen Attending Provider Cleve MARY, DIRECTOR OF ACADEMIC-C Rea Desai Attending Provider 1(3 30) Dr. Aleena London Primary Care Provider [phone] Dr. Aleena London Referring Provider [phone] ADRI Cho Attending Provider Dr. Aleena Garcia Attending Provider [phone] Baldomero DIRECTOR OF ACADEMIC, DIRECTOR OF ACADEMIC-Shiraz Bermudez Attending Provider ADRI Freire Attending Provider Dr. Aleena London Primary Care Provider [phone] Dr. Aleena London Referring Provider [phone])2 Dr. Ralph Tracy Attending Provider ADRI Cho Attending Provider ADRI Lomax Other Provider [phone] Dr. Aleena London Primary Care Provider [phone] Dr. Aleena London Referring Provider [phone])2 Dr. Cassidy Moore Attending Provider [phone] Dr. Royce Mckinney Attending Provider Enoc DIRECTOR OF ACADEMIC, DIRECTOR OF ACADEMIC-C Libertad Attending Provider 1(330) Dr. Mark Anthony [...] Dr. Aleena London Referring Provider [phone])2 Cleve DIRECTOR OF ACADEMIC, DIRECTOR OF ACADEMIC-C Rea Desai Attending Provider 1(3 30) Dr. Aleena London Primary Care Provider [phone] Lita, Dr. Blount Referring Provider [phone])2 ADRI Cho Attending Provider Unavailab Dr. Cassidy Miller Attending Provider 1(330 ) Dr. Aleena London Attending Provider [phone])2 Dr. Mo Washingotn Attending Provider [phone] ADRI Albert Attending Provider Dr. Jossue Sanchez Attending Provider [phone] Dr. Aleena London Primary Care Provider 1(33 0) Lita, Dr. Blount Referring Provider [phone])2 Dr. Cassidy Moore Referring Provider 1(330 ) Dr. Aleena London Primary Care Provider 1(33 0) Dr. Aleena London Referring Provider [phone])2 Enoc MARY, DIRECTOR OF ACADEMIC-C Libertad Attending Provider 1(330) Dr. Cassidy Moore Admit Provider [phone] Dr. Cassidy Moore Other Provider [phone] Dr. Aleena London Primary Care Provider 1(33 0) Dr. Aleena London Referring Provider [phone])2 Dr. Cassidy Moore Attending Provider 1(330 ) Cleve DIRECTOR OF ACADEMIC, DIRECTOR OF ACADEMIC-C Rea Desai Attending Provider 1(3 30) Dr. Aleena London Attending Provider [phone])2 Dr. Mo Washington Attending Provider [phone] ADRI Albert Attending Provider Dr. Jossue Sanchez Attending Provider [phone] Cassidy Moore Referring Provider 1(330 ) Enoc DIRECTOR OF ACADEMIC, DIRECTOR OF ACADEMIC-C Libertad Attending Provider 1(330) Dr. Cassidy Moore Admit Provider [phone] Dr. Cassidy Moore Other Provider [phone] Dr. Dimple Lynn Attending Provider 1(3 30) Dr. Aleena London Primary Care Provider [phone] Dr. Aleena London Referring Provider 1(330)2 Dr. Cassidy Moore Attending Provider 1(330 ) Dr. Adele Aguila Emergency Provider Dr. Christiano Eduardo Other Provider Unavaila [facility] Lita, Dr. Blount Primary Care Provider 1(33 0) Dr. Aleena London Referring Provider [phone])2 Cleve DIRECTOR OF ACADEMIC, DIRECTOR OF ACADEMIC-C Rea Desai Attending Provider 1(3 30) Dr. Aleena London Primary Care Provider [phone] Dr. Aleena London Referring Provider [phone])2 Dr. Cassidy Moore Attending Provider 1(330 ) Cleve DIRECTOR OF ACADEMIC, DIRECTOR OF ACADEMIC-C Rea Desai Attending Provider [phone] Dr. Mo Washington Attending Provider ADRI Albert Attending Provider Dr. Jossue Sanchez Attending Provider Dr. Cassidy Moore Referring Provider 1(330 ) Enoc DIRECTOR OF ACADEMIC, DIRECTOR OF ACADEMIC-C Libertad Attending Provider 1(330) Dr. Cassidy Moore [...] [phone])2 Dr. Jossue Sanchez Attending Provider Enoc DIRECTOR OF ACADEMIC, DIRECTOR OF ACADEMIC-C Libertad Attending Provider [phone] Pending, Provider Primary Care Unavailable Dr. Argelia Paris Attending Unavail able Cleve DIRECTOR OF ACADEMIC, DIRECTOR OF ACADEMIC-C eRa Desai Attending Provider [phone] ALEENA LONDON [...] [phone] Dr. Epifanio Kong [facility] Attending Provider Unavailab duyen Stubbs DIRECTOR OF ACADEMIC, DIRECTOR OF ACADEMIC-C Libertad Attending Provider 1(330) Cleve DIRECTOR OF ACADEMIC, DIRECTOR OF ACADEMIC-C Rea Desai Attending Provider 1(3 30) LITA HARTMAN, ALEENA Fernandes Primary Care Physician (3 30) ALAN QUINN DO Attending Unavailable LITA HARTMAN, ALEENA Fernandes Primary Care Unavailab duyen LONDON MD, ALEENA Fernandes Primary Care Unavailab BALDO Farah Attending Unavailable Dr. Aleena London Primary Care Provider 1(33 0) Dr. Aleena London Referring Provider [phone] Sherrie DIRECTOR OF ACADEMIC, DIRECTOR OF ACADEMIC-C Hanh Attending Provider 1(330 ) Maeve MARY, DIRECTOR OF ACADEMIC-C Deysi Attending Provider Dr. Greg Enrique Attending [...] Dr. Aleena London Referring Provider [phone] Sherrie DIRECTOR OF ACADEMIC, TYRA-Shiraz Schafer Attending Provider 1(330 ) Maeve MARY, DIRECTOR OF ACADEMIC-C Deysi Attending Provider Dr. Greg Enrique Attending [...] Dimple Lynn Attending Provider [phone] Sherrie DIRECTOR OF ACADEMIC, DIRECTOR OF ACADEMIC-C Hanh Attending Provider 1(330 ) Dr. Aleena London Primary Care Provider 1(33 0) Dr. Aleena London Referring Provider [phone])2 Dimple Lynn R Unavailable Dr. Aleena London Primary Care Provider 1(33 0) Dr. Aleena London Referring Provider 1(330)2 Dr. Ralph Tracy Attending Provider 1(330) Dr. Dimple Lynn Attending Provider [phone] Sherrie DIRECTOR OF ACADEMIC, TYRA-C Hanh Attending Provider 1(330 ) Dr. [...] Dimple Lynn Attending Provider 1(3 30) Sherrie DIRECTOR OF ACADEMIC, MARY ELLEN Schafer Attending Provider 1(330 ) [...] Provider 1(330)2 Dr. Reynaldo Flores Attending Provider [phone] Dr. Aleena London Primary Care Provider [phone] ADRI Albert Attending Provider Sherrie MARY, DIRECTOR OF ACADEMIC-C Hanh Attending Provider [phone] Dr. Aleena [...] Attending Provider MARY ELLEN Gunn Attending Provider [phone] Dr. Aleena London Attending Provider Lita Efewongbe Primary Care Provider Unavaila daryn Kaur MD, Nima Medrano Primary Care Provider Lita HARTMAN, Aleena Pavondicta Primary Care Prov ider OLEGHE, EFEWONGBE LISE Primary Care Unav ailable DB JR., TOMASZ Referring Unavailable DB JR., BOURG Admitting Unavailable OLEGHE, EFEWONGBE LISE Primary Care Unav ailable DB JR., BOURG Referring Unavailable DB JR., BOURG Admitting Unavailable OLEGHE, EFEWONGBE LISE Primary Care [...] Care Unavailable Oleghe, Efewongbe Primary Care Unavailable Valentine DIRECTOR OF ACADEMIC, Hanh Attending Unavailable Valentine DIRECTOR OF ACADEMIC, Hanh Referring Unavailable Nuñez, Britany Referring Unavailable Nuñez, Britany Attending Unavailable Oleghe, Efewongbe Primary Care Unavailable Edmond Young Attending Unavailable Oleghe, Efewongbe Primary Care Unavailable Oleghe, Efewongbe Primary Care Unavailable Patrick Banks Attending Unavailable Patrick Banks Referring Unavailable Oleghe, Efewongbe Primary Care Unavailable Iesha Loya Referring Unavailable Iesha Loya Attending Unavailable Oleghe, Efewongbe Primary Care Unavailable FerryvilleChetic Attending Unavailable Iva, Greg Referring Unavailable Nuñez, [...] Referring Unavailable Oleghe, Efewongbe Primary Care Unavailable Valentine DIRECTOR OF ACADEMIC, Hanh Referring Unavailable Valentine DIRECTOR OF ACADEMIC, Hanh Attending Unavailable Lisa Berkowitz Referring Unavailable Lisa Berkowitz Attending Unavailable Oleghe, Efewongbe Primary Care Unavailable [place], Greg Referring Unavailable Iva, Greg Attending Unavailable Oleghe, Efewongbe Primary Care Unavailable Oleghe, Efewongbe Primary Care Unavailable Nuñez, Britany Referring Unavailable Nuñez, Britany Attending Unavailable Oleghe, Efewongbe Primary Care Unavailable Iva, Greg Referring Unavailable [place], Greg Attending Unavailable Luiz Ramyn Attending Unavailable LeannaLuizyn Referring Unavailable Oleghe, Efewongbe Primary Care Unavailable Cassidy Moore Referring Unavailable Cassidy Moore Attending Unavailable Oleghe, Efewongbe Primary Care Unavailable Antonio Albert Attending Unavailable Oleghe, Efewongbe Primary Care Unavailable Antonio Albert Referring Unavailable Oleghe, Efewongbe Primary Care Unavailable Germán Kulkarni Attending Unavailable Oleghe, Efewongbe Primary Care Unavailable Darke Guzman Attending Unavailable Oleghe, Efewongbe Primary Care [...] Attending Unavailable Oleghe, Efewongbe Primary Care Unavailable [place], Greg Referring Unavailable Iva, Greg Attending Unavailable [...] Attending Unavailable Oleghe, Efewongbe Primary Care Unavailable [place], Greg Attending Unavailable Nuñez, Britany Referring Unavailable Iva, Greg Attending Unavailable Nuñez, Britany Referring Unavailable [place], Greg Referring Unavailable [place], Greg Attending Unavailable Oleghe, Efewongbe Primary Care [...] ondansetron; Translations: [Zofran] drug allergy 01-10-20 17 [facility] (20 sources) penicillin v drug allergy 01-10-20 17 [facility] (1 source) ketorolac; Translations: [Toradol] Drug Allergy [facility] Repository (20 sources) Latex; Translations: [Latex] Propensity to adverse reactions to drug (disorder) 04-10-20 12 Eruption of skin (disorder), Rash [facility] Repository (20 sources) Penicillins; Translations: [penicillins] Propensity to adverse reactions to drug (disorder) 02-18-20 10 Hives [facility] Repository (7 sources) Acetaminophen Drug Allergy 08-21-19 22 Other [facility] Work Phone: (20 sources) Dicyclomine; Translations: [DICYCLOMINE] Drug Allergy 05-27-19 16 Intolerance, GI Intolerance, Unknown [facility] (20 sources) Escitalopram; Translations: [ESCITALOPRAM] Drug Allergy 02-25-20 16 Headache, Unknown [facility] (20 sources) HYDROcodone; Translations: [HYDROCODONE] Drug Allergy 03-15-20 21 Unknown [facility] (20 sources) Ketorolac; Translations: [KETOROLAC] Drug Allergy 05-27-19 16 Unknown [facility] (20 sources) Naproxen; Translations: [NAPROXEN] Drug Allergy 11-10-19 17 Unknown, Other (See Comments), Hives [facility] (20 sources) Ondansetron; Translations: [ONDANSETRON HCL] Drug Allergy 03-02-20 21 Migraine [facility] Repository (20 sources) Promethazine; Translations: [PROMETHAZINE] Drug Allergy 12-28-19 18 Unknown [facility] (20 sources) Sertraline; Translations: [SERTRALINE] Drug Allergy 02-25-20 16 Headache, Other (See Comments) [facility] (4 sources) Acetaminophen / HYDROcodone; Translations: [HYDROCODONE-ACET AMINOPHEN] Drug Allergy 02-25-20 22 Other (See Comments) [facility] Repository (1 source) Penicillin; Translations: [penicillins] Drug Allergy Eruption of skin (disorder) [facility] (7 sources) Escitalopram; Translations: [ESCITALOPRAM OXALATE] Drug Allergy 02-25-20 16 Other: See Comments [facility] Work Phone: (7 sources) Ondansetron; Translations: [ONDANSETRON HCL (PF)] Drug Allergy 08-17-19 13 Other: See Comments [facility] Work Phone: (7 sources) Promethazine; Translations: [PROMETHAZINE HCL] Drug Allergy 12-28-19 18 Unknown [facility] Work Phone: (7 sources) Sertraline; Translations: [SERTRALINE HCL] Drug Allergy 02-25-20 16 Other: See Comments [facility] Work Phone: (3 sources) Non-steroidal anti-inflammatory agent; Translations: [NSAIDS (NON-STEROIDAL ANTI-INFLAMMATORY DRUG)] Propensity to adverse reactions to drug 05-29-19 25 Unknown [facility] (1 source) Dicyclomine Drug Allergy 05-06-20 24 [facility] Repository (1 source) Escitalopram Drug Allergy 03-17-20 [facility] Repository (1 source) HYDROcodone Drug Allergy 03-17-20 [facility] Repository (1 source) Ketorolac Drug Allergy 03-17-20 [facility] Repository (1 source) Naproxen Drug Allergy 03-17-20 [facility] Repository (1 source) Sertraline Drug Allergy 03-17-20 [facility] Repository (1 source) NSAIDS (Non-Steroidal Anti-Inflamma Drug allergy (disorder) 03-17-20 [facility] Repository Medications Current Medications Medication Drug [...] Comment on above: Take 1 capsule by [facility] once daily for 30 days. [...] Comment on above: Take 1 capsule by [facility] once daily. fluconazole 150 mg [...] and post prandial BLOOD GLUCOSE MONITORING SUPPL [id number] Cassidy Moore MD Start: 02-06-2017 End: 02-13-2017 FREESTYLE FREEDOM LITE w/Dev ice KIT Check blood sugar fast and post prandial BLOOD GLUCOSE MONITORING SUPPL [id number] Cassidy Moore MD BLOOD GLUCOSE MONITORING SUP PL (13 sources) Start: 02-06-2017 End: 02-13-2017 FREESTYLE FREEDOM LITE w/Dev ice KIT Check blood sugar fast and post prandial BLOOD GLUCOSE MONITORING SUPPL [id number] Cassidy Moore MD Start: 02-06-2017 End: 02-13-2017 FREESTYLE FREEDOM LITE w/Dev ice KIT Check blood sugar fast and post prandial BLOOD GLUCOSE MONITORING SUPPL [id number] Cassidy Moore MD BLOOD GLUCOSE MONITORING SUPPL (2 sources) Start: 02-06-2017 End: 02-13-2017 FREESTYLE FREEDOM LITE w/Device KIT Check blood sugar fast and post prandial BLOOD GLUCOSE MONITORING SUPPL [id number] Cassidy Moore MD cefdinir 300 mg oral [...] Sugar fasting and post prandial GLUCOSE BLOOD [id number] Cassidy Moore MD Start: 02-06-2017 End: 02-13-2017 FREESTYLE LITE TEST STRP Susan ck Blood Sugar fasting and post prandial GLUCOSE BLOOD [id number] Cassidy Moore MD GLUCOSE BLOOD (13 sources) Start: 02-06-2017 End: 02-13-2017 FREESTYLE LITE TEST STRP Susan ck Blood Sugar fasting and post prandial GLUCOSE BLOOD [id number] Cassidy Moore MD Start: 02-06-2017 End: 02-13-2017 FREESTYLE LITE TEST STRP Susan ck Blood Sugar fasting and post prandial GLUCOSE BLOOD [id number] Cassidy Moore MD GLUCOSE BLOOD (2 sources) Start: 02-06-2017 End: 02-13-2017 FREESTYLE LITE TEST STRP Check Blood Sugar fasting and post prandial GLUCOSE BLOOD [id number] Cassidy Moore MD hydrocortisone 25 mg/ml topical [...] menstrual cycle Start: 03-15-2021 End: 06-03-2021 nystatin [id number] unt/ml topic al cream (20 sources) Polyene [...] on above: TAKE ONE TABLET BY M [facility] WITH KETOPROFEN promethazine hydrochloride 12.5 mg oral tablet (20 sources) Phenothiazine Start: 01-10-20 take 1 tablet by mouth every six hours as needed PROMETHAZINE HCL 12.5 MG TABS 1 po q 6 hours as needed PROMETHAZINE HCL [id number] Cassidy Moore MD Npygqxpcm-Gnrvuecjt-Wy rethindr (17 sources) Start: 02-15-20 End: 04-19-20 [...] 11-04-2024 ED Prov Note ED PROVIDER NOTE [facility] EMERGENCY DEPARTMENT NAME: Lana Rivera AGE: 39 y.o. : 1985 VISIT DATE: 11/04/2024 CSN: [id number] PCP: Aleena London MD Chief Complaint Patient [...] ER for [facility], no acute distress, differential [place] limited to atypical ACS, PE, pneumonia, pneumothorax, costochondritis, pleuritis. Labs imaging pursued. Labs no severe leukocytosis or electrolyte abnormalities, D-dimer negative, delta troponin levels negative, chest x-ray is grossly remarkable, patient currently chest pain-free, will discharge as she is low risk ACS patient with close interval fo (more content not included)... Normal [facility] POC BASIC METABOLIC PANEL - [facility] 11-04-2024 Chloride [Moles/Vol] 103 mmol/L Normal 98-108 [facility] Comment on above: Order Comment: Negat jimmie: Dilute urine specimens, as indicated by a low specific gravity (<1.010) may not contain representitive levels of hCG. If is still suspected, a serum test or repeat urine test using a first morning urine specimen should be considered. CO2 [Moles/Vol] 25 mmol/L Normal 21-32 [facility] Comment on above: Order Comment: Negat jimmie: Dilute urine specimens, as indicated by a low specific gravity (<1.010) may not contain representitive levels of hCG. If is still suspected, a serum test or repeat urine test using a first morning urine specimen should be considered. Creatinine [Mass/Vol] 0.67 mg/dL Normal 0.40-1.10 [facility] Comment on above: Order Comment: Negat jimmie: Dilute urine specimens, as indicated by a low specific gravity (<1.010) may not contain representitive levels of hCG. If is still suspected, a serum test or repeat urine test using a first morning urine specimen should be considered. Glucose [Mass/Vol] 129 mg/dL High 65-99 [facility] Comment on above: Order Comment: Negat jimmie: Dilute urine specimens, as indicated by a low specific gravity (<1.010) may not contain representitive levels of hCG. If is still suspected, a serum test or repeat urine test using a first morning urine specimen should be considered. POC GFR 116 mL/min/1.73 m2 Normal >=60 [facility] Comment on above: Order Comment: Negat jimmie: [...] POC IONIZED CALCIUM 4.8 mg/dL Normal 4.5-5.3 [facility] Comment on above: Order Comment: Negat jimmie: Dilute urine specimens, as indicated by a low specific gravity (<1.010) may not contain representitive levels of hCG. If is still suspected, a serum test or repeat urine test using a first morning urine specimen should be considered. Potassium [Moles/Vol] 3.2 mmol/L Low 3.5-5.1 [facility] Comment on above: Order Comment: Negat jimmie: Dilute urine specimens, as indicated by a low specific gravity (<1.010) may not contain representitive levels of hCG. If is still suspected, a serum test or repeat urine test using a first morning urine specimen should be considered. Sodium [Moles/Vol] 134 mmol/L Low 135-145 [facility] Comment on above: Order Comment: Negat jimmie: Dilute urine specimens, as indicated by a low specific gravity (<1.010) may not contain representitive levels of hCG. If is still suspected, a serum test or repeat urine test using a first morning urine specimen should be considered. Urea nitrogen [Mass/Vol] 6 mg/dL Low 8-25 [facility] Comment on above: Order Comment: Negat jimmie: Dilute urine specimens, as indicated by a low specific gravity (<1.010) may not contain representitive levels of hCG. If is still suspected, a serum test or repeat urine test using a first morning urine specimen should be considered. POC CBC AND DIFFERENTIALon 0 11-04-2024 BASOPHILS ABSOLUTE COUNT 0.02 K/mcL Normal 0.00-0.30 [facility] Basophils/100 WBC (Bld) 0.5 % Normal [facility] Eosinophils (Bld) [#/Vol] 0.22 10*3/uL Normal 0.00-0.50 [facility] Eosinophils/100 WBC (Bld) 5.1 % Normal [facility] Erythrocyte distribution width (RBC) [Ratio] 12.9 % Normal 11.6-14.8 [facility] Hematocrit (Bld) [Volume fraction] 41.5 % Normal 36.0-46.0 [facility] Hemoglobin (Bld) [Mass/Vol] 13.7 g/dL Normal 12.0-16.0 [facility] IG ABSOLUTE 0.01 K/mcL Normal 0.00-0.30 [facility] IG PERCENT 0.20 % Normal [facility] Comment on above: Result Comment: The IG parameter is the percentage of metamyelocytes, myelocytes and promyelocytes. An immature granulocyte count (IG) of 1% or more suggests the possibility of infection, an IG count of 3% is very likely related to an infection. Lymphocytes (Bld) [#/Vol] 1.20 10*3/uL Normal 0.90-4.00 [facility] Lymphocytes/100 WBC (Bld) 28.0 % Normal [facility] MCH (RBC) [Entitic mass] 28.2 pg Normal 26.0-34.0 [facility] MCV (RBC) [Entitic vol] 85.6 fL Normal 80.0-100.0 [facility] MEAN CORPUSCULAR HEMOGLOBIN CONC 33.0 g/dL Normal 31.0-37.0 [facility] Monocytes (Bld) [#/Vol] 0.35 10*3/uL Normal 0.30-0.90 [facility] Monocytes/100 WBC (Bld) 8.2 % Normal [facility] NEUTROPHILS ABSOLUTE COUNT 2.48 K/mcL Normal 1.70-7.00 [facility] Neutrophils/100 WBC (Bld) 58.0 % Normal [facility] Platelet mean volume (Bld) [Entitic vol] 10.5 fL Normal 9.4-12.4 [facility] Platelets (Bld) [#/Vol] 152 10*3/uL Normal 150-400 [facility] RBC (Bld) [#/Vol] 4.85 10*6/uL Normal 4.00-5.20 [facility] WBC (Bld) [#/Vol] 4.28 10*3/uL Low 4.50-11.00 [facility] POC D-DIMER [facility] 5 POC D-DIMER 209 ng/mL DDU Normal <350 [facility] Comment on above: Order Comment: Injur y/Trauma or Illness?:Illness/Other How long have you had these symptoms (acute/chronic)?:Acute Reason for exam?:sudden onset of lower abd and right sided back pain in the night hx of ovarian cyst and endometreosis Type of Exam?:Initial Additional signs and symptoms?:na POC TROPONIN I [facility] 2024 POC TROPONIN I < Normal <0.05 [facility] POC TROPONIN I < Normal <0.05 [facility] XR CHEST PA/APon 11-04-2024 XR CHEST PA/AP [...] is unremarkable. IMPRESSION: No acute cardiopulmonary process. [facility] Workstation ID: [id number] Dictated by: JOHANNA MARCH on MonNov 04, 2024 2:36:53 PM EDT Transcribed by: SULAIMAN FREEDMAN on MonNov 04, 2024 2:59:40 PM EDT Finalized by: JOHANNA MARCH on MonNov 04, 2024 9:31:44 PM EDT Normal [facility] Comment on above: Order Comment: Injur y/Trauma or Illness?:Illness/Other How long have you had these symptoms (acute/chronic)?:Acute Reason for exam?:sudden onset of lower abd and right sided back pain in the night hx of ovarian cyst and endometreosis Type of Exam?:Initial Additional signs and symptoms?:na ED Prov Noteon 10-04-2024 ED Prov Note ED PROVIDER NOTE [facility] EMERGENCY DEPARTMENT NAME: Lana Rivera AGE: 39 y.o. : 1985 VISIT DATE: 10/04/2024 CSN: [id number] PCP: Aleena London MD Chief Complaint Patient [...] is warm. (more content not included)... Normal [facility] ED Prov Noteon 08-20-2024 ED Prov Note HPI: 08/20/2024, Time: @LIZZ@ Lana Desai Miguel is a [...] are negative. PAST HISTORY Past Medical History: @[facility]@ Past Surgical History: has a past [...] 5 days . Follow-up: Aleena London MD [address] [facility] [id number] In 3 days Final Impression: 1. Hearing loss due to cerumen impaction, right 2. Acute bronchitis, unspecified organism (Please note that portions of this note were completed with a voice recognition program. Efforts were made to edit the dictations but occasionally words are mis-transcribed.) G (more content not included)... Normal [facility] POC STREP A - MOLECULAR RALS on 08-20-2024 POC STREP A SCREEN Negative Normal Negative [facility] XR CHEST PA/APon 08-20-2024 XR CHEST PA/AP [...] on MonAug 20, 2024 12:05:28 PM EDT [facility] Comment on above: Order Comment: Injur y/Trauma [...] on MonJun 21, 2024 5:05:52 PM EST [facility] Comment on above: Order Comment: Injur y/Trauma [...] on MonJun 21, 2024 5:05:42 PM EST [facility] Comment on above: Order Comment: Injur y/Trauma or Illness?:Illness/Other How long have you had these symptoms (acute/chronic)?:Chronic Reason for exam?:PAIN History of cancer?:n Surgeries, chemotherapy, or radiation?:ORIF radius and ulna Type of Exam?:Initial Additional signs and symptoms?:NO ED Prov Noteon 06-16-2024 ED Prov Note [place] [facility] Physician Note: NAME: Lana Rivera 39 y.o. CSN: [id number] PCP: Aleena London MD ED Course / [...] Resource Strain: High Risk (02/19/2020) Received from [facility] Overall Financial Resource Strain (CARDIA) Difficulty of Paying Living Expenses: Hard Food Insecurity: No Food Insecurity (02/19/2020) Received from [facility] Hunger Vital Sign Worried About Running Out of Food in the Last Year: Never true Ran Out of Food in the Last Year: Never true Transportation Needs: No Transportation Needs (02/19/2020) Received from [facility] PRAPARE - Transportation Lack of Transportation (Medical): No Lack of Transportation (Non-Medical): No Physical Activity: Insufficiently Active (01/27/2020) Received from [facility] Exercise Vital Sign Days of Exercise per Week: 2 days Minutes of Exercise per Session: 20 min Stress: No Stress Concern Present (01/27/2020) Received from [facility] - Occupational Stress Questionnaire Feeling of Stress : Only a little Social Connections: Moderately Isolated (01/27/2020) Received from [facility] Social Connection and Isolation Panel [NHANES] Frequency of Communication with Friends and Family: More than three times a week Frequency of Social Gatherings with Friends and Family: Twice a week Attends Episcopal Services: Never Active Member of Clubs or Organizations: No Attends Club or Organization Meetings: Never Marital Status: Housing Stability: Low Risk (01/27/2020) Received from [facility] Housing Stability Vital Sign Unable to Pay [...] Take 2 pills (more content not included)... [facility] ED Prov Noteon 06-13-2024 ED Prov Note ED PROVIDER NOTE [facility] EMERGENCY DEPARTMENT NAME: Lana Rivera AGE: 39 y.o. : 1985 VISIT DATE: 06/13/2024 CSN: [id number] PCP: Aleena London MD Chief Complaint Patient [...] Resource Strain: High Risk (02/19/2020) Received from [facility] Overall Financial Resource Strain (CARDIA) Difficulty of Paying Living Expenses: Hard Food Insecurity: No Food Insecurity (02/19/2020) Received from [facility] Hunger Vital Sign Worried About Running Out of Food in the Last Year: Never true Ran Out of Food in the Last Year: Never true Transportation Needs: No Transportation Needs (02/19/2020) Received from [facility] PRAPARE - Transportation Lack of Transportation (Medical): No Lack of Transportation (Non-Medical): No Physical Activity: Insufficiently Active (01/27/2020) Received from [facility] Exercise Vital Sign Days of Exercise per Week: 2 days Minutes of Exercise per Session: 20 min Stress: No Stress Concern Present (01/27/2020) Received from [facility] [place] [facility] - Occupational Stress Questionnaire Feeling of Stress : Only a little Social Connections: Moderately Isolated (01/27/2020) Received from [facility] Social Connection and Isolation Panel [NHANES] Frequency of Communication with Friends and Family: More than three times a week Frequency of Social Gatherings with Friends and Family: Twice a week Attends Episcopal Services: Never Active Member of Clubs or Organizations: No Attends Club or Organization Meetings: Never Marital Status: Housing Stability: Low Risk (01/27/2020) Received from [facility] Housing Stability Vital Sign Unable to Pay [...] Allergies Allergen Re (more content not included)... [facility] XR SHOULDER LEFT 2+ VIEWS (S TANDARD)on [...] [place] on MonJun 13, 2024 3:52:44 PM [facility] Comment on above: Order Comment: Injur y/Trauma or Illness?:Illness/Other How long have you had these symptoms (acute/chronic)?:Acute Reason for exam?:lower GI bleed with abd pain Type of Exam?:Initial Additional signs and symptoms?:na ED Prov Noteon 06-05-2024 ED Prov Note ED PROVIDER NOTE [facility] EMERGENCY DEPARTMENT NAME: Lana Rivera AGE: 39 y.o. : 1985 VISIT DATE: 06/05/2024 CSN: [id number] PCP: Aleena London MD Chief Complaint Patient [...] Resource Strain: High Risk (02/19/2020) Received from [facility] Overall Financial Resource Strain (CARDIA) Difficulty of Paying Living Expenses: Hard Food Insecurity: No Food Insecurity (02/19/2020) Received from [facility] Hunger Vital Sign Worried About Running Out of Food in the Last Year: Never true Ran Out of Food in the Last Year: Never true Transportation Needs: No Transportation Needs (02/19/2020) Received from [facility] PRAPARE - Transportation Lack of Transportation (Medical): No Lack of Transportation (Non-Medical): No Physical Activity: Insufficiently Active (01/27/2020) Received from [facility] Exercise Vital Sign Days of Exercise per Week: 2 days Minutes of Exercise per Session: 20 min Stress: No Stress Concern Present (01/27/2020) Received from [facility] - Occupational Stress Questionnaire Feeling of Stress : Only a little Social Connections: Moderately Isolated (01/27/2020) Received from [facility] Social Connection and Isolation Panel [NHANES] Frequency of Communication with Friends and Family: More than three times a week Frequency of Social Gatherings with Friends and Family: Twice a week Attends Episcopal Services: Never Active Member of Clubs or Organizations: No Attends Club or Organization Meetings: Never Marital Status: Housing Stability: Low Risk (01/27/2020) Received from [facility] Housing Stability Vital Sign Unable to Pay [...] times a d (more content not included)... [facility] ED Prov Noteon 05-28-2024 ED Prov Note ED PROVIDER NOTE [facility] EMERGENCY DEPARTMENT NAME: Lana Rivera AGE: 39 y.o. : 1985 VISIT DATE: 05/28/2024 CSN: [id number] PCP: Aleena London MD Chief Complaint Patient [...] Resource Strain: High Risk (02/19/2020) Received from [facility] Overall Financial Resource Strain (CARDIA) Difficulty of Paying Living Expenses: Hard Food Insecurity: No Food Insecurity (02/19/2020) Received from [facility] Hunger Vital Sign Worried About Running Out of Food in the Last Year: Never true Ran Out of Food in the Last Year: Never true Transportation Needs: No Transportation Needs (02/19/2020) Received from [facility] PRAPARE - Transportation Lack of Transportation (Medical): No Lack of Transportation (Non-Medical): No Physical Activity: Insufficiently Active (01/27/2020) Received from [facility] Exercise Vital Sign Days of Exercise per Week: 2 days Minutes of Exercise per Session: 20 min Stress: No Stress Concern Present (01/27/2020) Received from [facility] - Occupational Stress Questionnaire Feeling of Stress : Only a little Social Connections: Moderately Isolated (01/27/2020) Received from [facility] Social Connection and Isolation Panel [NHANES] Frequency of Communication with Friends and Family: More than three times a week Frequency of Social Gatherings with Friends and Family: Twice a week Attends Episcopal Services: Never Active Member of Clubs or Organizations: No Attends Club or Organization Meetings: Never Marital Status: Housing Stability: Low Risk (01/27/2020) Received from [facility] Housing Stability Vital Sign Unable to Pay [...] Allergen Reactions Hydrocodo (more content not included)... [facility] ED Prov Noteon 05-09-2024 ED Prov Note [...] are negative. PAST HISTORY Past Medical History: @[facility]@ Past Surgical History: has a past [...] Normal Affect (more content not included)... Normal [facility] ED Prov Noteon 04-15-2024 ED Prov Note ED PROVIDER NOTE [facility] EMERGENCY DEPARTMENT NAME: Lana Rivera AGE: 38 y.o. : 1985 VISIT DATE: 04/15/2024 CSN: [id number] PCP: Aleena London MD Chief Complaint Patient [...] Resource Strain: High Risk (02/19/2020) Received from [facility] Overall Financial Resource Strain (CARDIA) Difficulty of Paying Living Expenses: Hard Food Insecurity: No Food Insecurity (02/19/2020) Received from [facility] Hunger Vital Sign Worried About Running Out of Food in the Last Year: Never true Ran Out of Food in the Last Year: Never true Transportation Needs: No Transportation Needs (02/19/2020) Received from [facility] PRAPARE - Transportation Lack of Transportation (Medical): No Lack of Transportation (Non-Medical): No Physical Activity: Insufficiently Active (01/27/2020) Received from [facility] Exercise Vital Sign Days of Exercise per Week: 2 days Minutes of Exercise per Session: 20 min Stress: No Stress Concern Present (01/27/2020) Received from [facility] - Occupational Stress Questionnaire Feeling of Stress : Only a little Social Connections: Moderately Isolated (01/27/2020) Received from [facility] Social Connection and Isolation Panel [NHANES] Frequency of Communication with Friends and Family: More than three times a week Frequency of Social Gatherings with Friends and Family: Twice a week Attends Episcopal Services: Never Active Member of Clubs or Organizations: No Attends Club or Organization Meetings: Never Marital Status: Housing Stability: Low Risk (01/27/2020) Received from [facility] Housing Stability Vital Sign Unable to Pay [...] Other ( (more content not included)... Normal [facility] CT ABDOMEN PELVIS WITH IV CO NTRAST [...] left salpingo-oophorectomy. Ultrasound follow-up could be considered. [facility] Workstation ID: [id number] Dictated by: JOHANNA MARCH on MonApr 01, 2024 11:57:43 AM EST Transcribed by: CATINA GENTILE on MonApr 01, 2024 12:07:32 PM EST Finalized by: JOHANNA MARCH on MonApr 01, 2024 9:03:59 PM EST Normal [facility] Comment on above: Order Comment: Injur y/Trauma or Illness?:Illness/Other How long have you had these symptoms (acute/chronic)?:Acute Reason for exam?:sudden onset of lower abd and right sided back pain in the night hx of ovarian cyst and endometreosis Type of Exam?:Initial Additional signs and symptoms?:na ED Prov Noteon 04-01-2024 ED Prov Note ED PROVIDER NOTE [facility] EMERGENCY DEPARTMENT NAME: Lana Rivera AGE: 38 y.o. : 1985 VISIT DATE: 04/01/2024 CSN: [id number] PCP: Aleena London MD Chief Complaint Patient [...] Resource Strain: High Risk (02/19/2020) Received from [facility] Overall Financial Resource Strain (CARDIA) Difficulty of Paying Living Expenses: Hard Food Insecurity: No Food Insecurity (02/19/2020) Received from [facility] Hunger Vital Sign Worried About Running Out of Food in the Last Year: Never true Ran Out of Food in the Last Year: Never true Transportation Needs: No Transportation Needs (02/19/2020) Received from [facility] PRAPARE - Transportation Lack of Transportation (Medical): No Lack of Transportation (Non-Medical): No Physical Activity: Insufficiently Active (01/27/2020) Received from [facility] Exercise Vital Sign Days of Exercise per Week: 2 days Minutes of Exercise per Session: 20 min Stress: No Stress Concern Present (01/27/2020) Received from [facility] - Occupational Stress Questionnaire Feeling of Stress : Only a little Social Connections: Moderately Isolated (01/27/2020) Received from [facility] Social Connection and Isolation Panel [NHANES] Frequency of Communication with Friends and Family: More than three times a week Frequency of Social Gatherings with Friends and Family: Twice a week Attends Episcopal Services: Never Active Member of Clubs or Organizations: No Attends Club or Organization Meetings: Never Marital Status: Housing Stability: Low Risk (01/27/2020) Received from [facility] Housing Stability Vital Sign Unable to Pay [...] Reactions Hydrocod (more content not included)... Normal [facility] POC BASIC METABOLIC PANEL - [facility] 04-01-2024 Chloride [Moles/Vol] 105 mmol/L Normal 98-108 [facility] Comment on above: Order Comment: Injur y/Trauma or Illness?:Illness/Other How long have you had these symptoms (acute/chronic)?:Acute Reason for exam?:sudden onset of lower abd and right sided back pain in the night hx of ovarian cyst and endometreosis Type of Exam?:Initial Additional signs and symptoms?:na CO2 [Moles/Vol] 25 mmol/L Normal 21-32 [facility] Comment on above: Order Comment: Injur y/Trauma or Illness?:Illness/Other How long have you had these symptoms (acute/chronic)?:Acute Reason for exam?:sudden onset of lower abd and right sided back pain in the night hx of ovarian cyst and endometreosis Type of Exam?:Initial Additional signs and symptoms?:na Creatinine [Mass/Vol] 0.60 mg/dL Normal 0.40-1.10 [facility] Comment on above: Order Comment: Injur y/Trauma or Illness?:Illness/Other How long have you had these symptoms (acute/chronic)?:Acute Reason for exam?:sudden onset of lower abd and right sided back pain in the night hx of ovarian cyst and endometreosis Type of Exam?:Initial Additional signs and symptoms?:na Glucose [Mass/Vol] 139 mg/dL High 65-99 [facility] Comment on above: Order Comment: Injur y/Trauma or Illness?:Illness/Other How long have you had these symptoms (acute/chronic)?:Acute Reason for exam?:sudden onset of lower abd and right sided back pain in the night hx of ovarian cyst and endometreosis Type of Exam?:Initial Additional signs and symptoms?:na POC GFR 119 mL/min/1.73 m2 Normal >=60 [facility] Comment on above: Order Comment: Injur y/Trauma [...] POC IONIZED CALCIUM 4.7 mg/dL Normal 4.5-5.3 [facility] Comment on above: Order Comment: Injur y/Trauma or Illness?:Illness/Other How long have you had these symptoms (acute/chronic)?:Acute Reason for exam?:sudden onset of lower abd and right sided back pain in the night hx of ovarian cyst and endometreosis Type of Exam?:Initial Additional signs and symptoms?:na Potassium [Moles/Vol] 4.0 mmol/L Normal 3.5-5.1 [facility] Comment on above: Order Comment: Injur y/Trauma or Illness?:Illness/Other How long have you had these symptoms (acute/chronic)?:Acute Reason for exam?:sudden onset of lower abd and right sided back pain in the night hx of ovarian cyst and endometreosis Type of Exam?:Initial Additional signs and symptoms?:na Sodium [Moles/Vol] 141 mmol/L Normal 135-145 [facility] Comment on above: Order Comment: Injur y/Trauma or Illness?:Illness/Other How long have you had these symptoms (acute/chronic)?:Acute Reason for exam?:sudden onset of lower abd and right sided back pain in the night hx of ovarian cyst and endometreosis Type of Exam?:Initial Additional signs and symptoms?:na Urea nitrogen [Mass/Vol] 9 mg/dL Normal 8-25 [facility] Comment on above: Order Comment: Injur y/Trauma or Illness?:Illness/Other How long have you had these symptoms (acute/chronic)?:Acute Reason for exam?:sudden onset of lower abd and right sided back pain in the night hx of ovarian cyst and endometreosis Type of Exam?:Initial Additional signs and symptoms?:na POC CBC AND DIFFERENTIALon 06-01-2023 BASOPHILS ABSOLUTE COUNT 0.02 K/mcL Normal 0.00-0.30 [facility] Basophils/100 WBC (Bld) 0.4 % Normal [facility] Eosinophils (Bld) [#/Vol] 0.26 10*3/uL Normal 0.00-0.50 [facility] Eosinophils/100 WBC (Bld) 4.7 % Normal [facility] Erythrocyte distribution width (RBC) [Ratio] 12.6 % Normal 11.6-14.8 [facility] Hematocrit (Bld) [Volume fraction] 44.1 % Normal 36.0-46.0 [facility] Hemoglobin (Bld) [Mass/Vol] 14.8 g/dL Normal 12.0-16.0 [facility] IG ABSOLUTE 0.01 K/mcL Normal 0.00-0.30 [facility] IG PERCENT 0.20 % Normal [facility] Comment on above: Result Comment: The IG parameter is the percentage of metamyelocytes, myelocytes and promyelocytes. An immature granulocyte count (IG) of 1% or more suggests the possibility of infection, an IG count of 3% is very likely related to an infection. Lymphocytes (Bld) [#/Vol] 1.46 10*3/uL Normal 0.90-4.00 [facility] Lymphocytes/100 WBC (Bld) 26.3 % Normal [facility] MCH (RBC) [Entitic mass] 28.9 pg Normal 26.0-34.0 [facility] MCV (RBC) [Entitic vol] 86.1 fL Normal 80.0-100.0 [facility] MEAN CORPUSCULAR HEMOGLOBIN CONC 33.6 g/dL Normal 31.0-37.0 [facility] Monocytes (Bld) [#/Vol] 0.42 10*3/uL Normal 0.30-0.90 [facility] Monocytes/100 WBC (Bld) 7.6 % Normal [facility] NEUTROPHILS ABSOLUTE COUNT 3.39 K/mcL Normal 1.70-7.00 [facility] Neutrophils/100 WBC (Bld) 60.8 % Normal [facility] Platelet mean volume (Bld) [Entitic vol] 11.0 fL Normal 9.4-12.4 [facility] Platelets (Bld) [#/Vol] 173 10*3/uL Normal 150-400 [facility] RBC (Bld) [#/Vol] 5.12 10*6/uL Normal 4.00-5.20 [facility] WBC (Bld) [#/Vol] 5.56 10*3/uL Normal 4.50-11.00 [facility] POC LIVER PANEL PLUS [facility] 04-01-2024 Albumin [Mass/Vol] 4.0 g/dL Normal 3.2-5.2 [facility] ALP [Catalytic activity/Vol] 57 U/L Normal 40-140 [facility] ALT [Catalytic activity/Vol] 29 U/L Normal 0-40 [facility] Amylase [Catalytic activity/Vol] 24 U/L Low 25-115 [facility] Amylase [Catalytic activity/Vol] 17 U/L Normal 7-33 [facility] AST [Catalytic activity/Vol] 28 U/L Normal 0-45 [facility] Bilirubin [Mass/Vol] 0.6 mg/dL Normal 0.0-1.3 [facility] Protein [Mass/Vol] 7.2 g/dL Normal 6.0-8.0 [facility] POC [facility] Beta HCG ( test) Ql (U) Negative Normal Negative [facility] Comment on above: Order Comment: Injur y/Trauma or Illness?:Illness/Other How long have you had these symptoms (acute/chronic)?:Acute Reason for exam?:sudden onset of lower abd and right sided back pain in the night hx of ovarian cyst and endometreosis Type of Exam?:Initial Additional signs and symptoms?:na POC URINALYSIS DIPSTICK,AUTO - RALSon 04-01-2024 POC BILIRUBIN, URINE Negative Normal Negative [facility] POC BLOOD, URINE Negative Normal Negative [facility] POC GLUCOSE, URINE Negative Normal Negative [facility] POC KETONES, URINE Negative Normal Negative [facility] POC LEUKOCYTE ESTERASE, URINE Negative Normal Negative [facility] POC NITRITE, URINE Negative Normal Negative [facility] POC PH, URINE 6.5 Normal 5.0-7.0 [facility] POC PROTEIN, URINE Negative Normal Negative [facility] POC SPECIFIC GRAVITY 1.025 Normal 1.005-1.025 [facility] POC UROBILINOGEN 0.2 mg/dL Normal < 2.0 [facility] ED Prov Noteon 03-17-2024 ED Prov Note ED PROVIDER NOTE [facility] EMERGENCY DEPARTMENT NAME: Lana Rivera AGE: 38 y.o. : 1985 VISIT DATE: 03/17/2024 CSN: [id number] PCP: Aleena London MD Chief Complaint Patient [...] Resource Strain: High Risk (02/19/2020) Received from [facility] Overall Financial Resource Strain (CARDIA) Difficulty of Paying Living Expenses: Hard Food Insecurity: No Food Insecurity (02/19/2020) Received from [facility] Hunger Vital Sign Worried About Running Out of Food in the Last Year: Never true Ran Out of Food in the Last Year: Never true Transportation Needs: No Transportation Needs (02/19/2020) Received from [facility] PRAPARE - Transportation Lack of Transportation (Medical): No Lack of Transportation (Non-Medical): No Physical Activity: Insufficiently Active (01/27/2020) Received from [facility] Exercise Vital Sign Days of Exercise per Week: 2 days Minutes of Exercise per Session: 20 min Stress: No Stress Concern Present (01/27/2020) Received from [facility] - Occupational Stress Questionnaire Feeling of Stress : Only a little Social Connections: Moderately Isolated (01/27/2020) Received from [facility] Social Connection and Isolation Panel [NHANES] Frequency of Communication with Friends and Family: More than three times a week Frequency of Social Gatherings with Friends and Family: Twice a week Attends Episcopal Services: Never Active Member of Clubs or Organizations: No Attends Club or Organization Meetings: Never Marital Status: Housing Stability: Low Risk (01/27/2020) Received from [facility] Housing Stability Vital Sign Unable to Pay [...] nausea . prochlorpe (more content not included)... [facility] XR CERVICAL SPINE COMPLETE 4 -5 VIEWS [...] well. 4. Upper lung zones are clear. [employer] Workstation ID: [id number] Dictated by: COLE PALM on [place] Mar 17, 2024 9:20:05 AM EDT Transcribed by: FLO MOSS on [place] Mar 17, 2024 9:48:26 AM EDT Finalized by: COLE PALM on [place] Mar 17, 2024 5:13:59 PM EDT [facility] Comment on above: Order Comment: Injur y/Trauma [...] on MonMar 11, 2024 12:13:13 PM EDT [facility] Comment on above: Order Comment: Injur y/Trauma or Illness?:Illness/Other How long have you had these symptoms (acute/chronic)?:Acute Reason for exam?:lower GI bleed with abd pain Type of Exam?:Initial Additional signs and symptoms?:na ED Prov Noteon 03-11-2024 ED Prov Note ED PROVIDER NOTE [facility] EMERGENCY DEPARTMENT NAME: Lana Rivera AGE: 38 y.o. : 1985 VISIT DATE: 03/11/2024 [facility]: [id number] PCP: Aleena London MD Chief Complaint Patient [...] Resource Strain: High Risk (02/19/2020) Received from [facility] Overall Financial Resource Strain (CARDIA) Difficulty of Paying Living Expenses: Hard Food Insecurity: No Food Insecurity (02/19/2020) Received from [facility] Hunger Vital Sign Worried About Running Out of Food in the Last Year: Never true Ran Out of Food in the Last Year: Never true Transportation Needs: No Transportation Needs (02/19/2020) Received from [facility] PRAPARE - Transportation Lack of Transportation (Medical): No Lack of Transportation (Non-Medical): No Physical Activity: Insufficiently Active (01/27/2020) Received from [facility] Exercise Vital Sign Days of Exercise per Week: 2 days Minutes of Exercise per Session: 20 min Stress: No Stress Concern Present (01/27/2020) Received from [facility] - Occupational Stress Questionnaire Feeling of Stress : Only a little Social Connections: Moderately Isolated (01/27/2020) Received from [facility] Social Connection and Isolation Panel [NHANES] Frequency of Communication with Friends and Family: More than three times a week Frequency of Social Gatherings with Friends and Family: Twice a week Attends Episcopal Services: Never Active Member of Clubs or Organizations: No Attends Club or Organization Meetings: Never Marital Status: Housing Stability: Low Risk (01/27/2020) Received from [facility], [facility] Housing Stability Vital Sign Unable to [...] TAKE WI (more content not included)... Normal [facility] POC BASIC METABOLIC PANEL - [facility] 03-11-2024 Chloride [Moles/Vol] 104 mmol/L Normal 98-108 [facility] Comment on above: Order Comment: Injur y/Trauma or Illness?:Illness/Other How long have you had these symptoms (acute/chronic)?:Acute Reason for exam?:sudden onset of lower abd and right sided back pain in the night hx of ovarian cyst and endometreosis Type of Exam?:Initial Additional signs and symptoms?:na CO2 [Moles/Vol] 26 mmol/L Normal 21-32 [facility] Comment on above: Order Comment: Injur y/Trauma or Illness?:Illness/Other How long have you had these symptoms (acute/chronic)?:Acute Reason for exam?:sudden onset of lower abd and right sided back pain in the night hx of ovarian cyst and endometreosis Type of Exam?:Initial Additional signs and symptoms?:na Creatinine [Mass/Vol] 0.64 mg/dL Normal 0.40-1.10 [facility] Comment on above: Order Comment: Injur y/Trauma or Illness?:Illness/Other How long have you had these symptoms (acute/chronic)?:Acute Reason for exam?:sudden onset of lower abd and right sided back pain in the night hx of ovarian cyst and endometreosis Type of Exam?:Initial Additional signs and symptoms?:na Glucose [Mass/Vol] 108 mg/dL High 65-99 [facility] Comment on above: Order Comment: Injur y/Trauma or Illness?:Illness/Other How long have you had these symptoms (acute/chronic)?:Acute Reason for exam?:sudden onset of lower abd and right sided back pain in the night hx of ovarian cyst and endometreosis Type of Exam?:Initial Additional signs and symptoms?:na POC GFR 118 mL/min/1.73 m2 Normal >=60 [facility] Comment on above: Order Comment: Injur y/Trauma [...] POC IONIZED CALCIUM 4.9 mg/dL Normal 4.5-5.3 [facility] Comment on above: Order Comment: Injur y/Trauma or Illness?:Illness/Other How long have you had these symptoms (acute/chronic)?:Acute Reason for exam?:sudden onset of lower abd and right sided back pain in the night hx of ovarian cyst and endometreosis Type of Exam?:Initial Additional signs and symptoms?:na Potassium [Moles/Vol] 3.8 mmol/L Normal 3.5-5.1 [facility] Comment on above: Order Comment: Injur y/Trauma or Illness?:Illness/Other How long have you had these symptoms (acute/chronic)?:Acute Reason for exam?:sudden onset of lower abd and right sided back pain in the night hx of ovarian cyst and endometreosis Type of Exam?:Initial Additional signs and symptoms?:na Sodium [Moles/Vol] 142 mmol/L Normal 135-145 [facility] Comment on above: Order Comment: Injur y/Trauma or Illness?:Illness/Other How long have you had these symptoms (acute/chronic)?:Acute Reason for exam?:sudden onset of lower abd and right sided back pain in the night hx of ovarian cyst and endometreosis Type of Exam?:Initial Additional signs and symptoms?:na Urea nitrogen [Mass/Vol] 8 mg/dL Normal 8-25 [facility] Comment on above: Order Comment: Injur y/Trauma or Illness?:Illness/Other How long have you had these symptoms (acute/chronic)?:Acute Reason for exam?:sudden onset of lower abd and right sided back pain in the night hx of ovarian cyst and endometreosis Type of Exam?:Initial Additional signs and symptoms?:na POC CBC AND DIFFERENTIALon 1 BASOPHILS ABSOLUTE COUNT 0.02 K/mcL Normal 0.00-0.30 [facility] Basophils/100 WBC (Bld) 0.4 % Normal [facility] Eosinophils (Bld) [#/Vol] 0.22 10*3/uL Normal 0.00-0.50 [facility] Eosinophils/100 WBC (Bld) 4.8 % Normal [facility] Erythrocyte distribution width (RBC) [Ratio] 12.8 % Normal 11.6-14.8 [facility] Hematocrit (Bld) [Volume fraction] 42.6 % Normal 36.0-46.0 [facility] Hemoglobin (Bld) [Mass/Vol] 14.2 g/dL Normal 12.0-16.0 [facility] IG ABSOLUTE 0.01 K/mcL Normal 0.00-0.30 [facility] IG PERCENT 0.20 % Normal [facility] Comment on above: Result Comment: The IG parameter is the percentage of metamyelocytes, myelocytes and promyelocytes. An immature granulocyte count (IG) of 1% or more suggests the possibility of infection, an IG count of 3% is very likely related to an infection. Lymphocytes (Bld) [#/Vol] 1.47 10*3/uL Normal 0.90-4.00 [facility] Lymphocytes/100 WBC (Bld) 32.0 % Normal [facility] MCH (RBC) [Entitic mass] 28.7 pg Normal 26.0-34.0 [facility] MCV (RBC) [Entitic vol] 86.1 fL Normal 80.0-100.0 [facility] MEAN CORPUSCULAR HEMOGLOBIN CONC 33.3 g/dL Normal 31.0-37.0 [facility] Monocytes (Bld) [#/Vol] 0.43 10*3/uL Normal 0.30-0.90 [facility] Monocytes/100 WBC (Bld) 9.4 % Normal [facility] NEUTROPHILS ABSOLUTE COUNT 2.44 K/mcL Normal 1.70-7.00 [facility] Neutrophils/100 WBC (Bld) 53.2 % Normal [facility] Platelet mean volume (Bld) [Entitic vol] 10.8 fL Normal 9.4-12.4 [facility] Platelets (Bld) [#/Vol] 149 10*3/uL Low 150-400 [facility] RBC (Bld) [#/Vol] 4.95 10*6/uL Normal 4.00-5.20 [facility] WBC (Bld) [#/Vol] 4.59 10*3/uL Normal 4.50-11.00 [facility] POC PT-INR - S[facility] 03-11-20 24 POC INR (SIG ELITE) 1.4 High 0.8-1.1 [facility] ED Prov Noteon 03-07-2024 ED Prov Note [...] are negative. PAST HISTORY Past Medical History: @[facility]@ Past Surgical History: has a past [...] left wrist (more content not included)... Normal [facility] ED Prov Noteon 03-04-2024 ED Prov Note [place] ED Physician Note: NAME: Lana Rivera 38 y.o. CSN: [id number] PCP: Aleena London MD ED Course / [...] Resource Strain: High Risk (02/19/2020) Received from [facility] Overall Financial Resource Strain (CARDIA) Difficulty of Paying Living Expenses: Hard Food Insecurity: No Food Insecurity (02/19/2020) Received from [facility] Hunger Vital Sign Worried About Running Out of Food in the Last Year: Never true Ran Out of Food in the Last Year: Never true Transportation Needs: No Transportation Needs (02/19/2020) Received from [facility] PRAPARE - Transportation Lack of Transportation (Medical): No Lack of Transportation (Non-Medical): No Physical Activity: Insufficiently Active (01/27/2020) Received from [facility] Exercise Vital Sign Days of Exercise per Week: 2 days Minutes of Exercise per Session: 20 min Stress: No Stress Concern Present (01/27/2020) Received from [facility] [employer] [facility] [employer] [facility] - Occupational Stress Questionnaire Feeling of Stress : Only a little Social Connections: Moderately Isolated (01/27/2020) Received from [facility] Social Connection and Isolation Panel [NHANES] Frequency of Communication with Friends and Family: More than three times a week Frequency of Social Gatherings with Friends and Family: Twice a week Attends Episcopal Services: Never Active Member of Clubs or Organizations: No Attends Club or Organization Meetings: Never Marital Status: Housing Stability: Low Risk (01/27/2020) Received from [facility] Housing Stability Vital Sign [...] a day as (more content not included)... [facility] XR FOREARM LEFT 2 VIEWSon XR FOREARM [...] ulnar shaft fractures with intact fixation hardware. /[facility] Workstation ID: [id number] Dictated by: JOHANNA MARCH on MonMar 04, 2024 1:11:34 PM EDT Transcribed by: FLO MOSS on MonMar 04, 2024 1:13:46 PM EDT Finalized by: JOHANNA MARCH on MonMar 04, 2024 10:23:51 PM EDT [facility] Comment on above: Order Comment: Injur y/Trauma [...] normal limits. IMPRESSION: No acute osseous abnormality. [facility] Workstation ID: [id number] Dictated by: JOHANNA MARCH on MonMar 04, 2024 1:16:35 PM EDT Transcribed by: FLO MOSS on MonMar 04, 2024 1:21:46 PM EDT Finalized by: JOHANNA MARCH on MonMar 04, 2024 10:23:57 PM EDT [facility] Comment on above: Order Comment: Injur y/Trauma [...] normal limits. IMPRESSION: No acute osseous abnormality. [facility] Workstation ID: [id number] Dictated by: JOHANNA MARCH on MonMar 04, 2024 1:13:20 PM EDT Transcribed by: FLO MOSS on MonMar 04, 2024 1:17:08 PM EDT Finalized by: JOHANNA MARCH on MonMar 04, 2024 10:27:17 PM EDT [facility] Comment on above: Order Comment: Injur y/Trauma or Illness?:Illness/Other How long have you had these symptoms (acute/chronic)?:Acute Reason for exam?:sudden onset of lower abd and right sided back pain in the night hx of ovarian cyst and endometreosis Type of Exam?:Initial Additional signs and symptoms?:na ED Prov Noteon 02-23-2024 ED Prov Note [facility] EMERGENCY DEPARTMENT ATTENDING NOTE: NAME: Lana Rivera CSN: [id number] 38 y.o. PCP: Aleena London MD History: [...] of Percocet until she may follow-up with [facility]. After reviewing the items above, I did [...] Never Vaping Use (more content not included)... [facility] CT ABDOMEN PELVIS WITH IV CO NTRAST [...] on MonFeb 20, 2024 11:00:04 AM EDT [facility] Comment on above: Order Comment: Injur y/Trauma or Illness?:Illness/Other How long have you had these symptoms (acute/chronic)?:Acute Reason for exam?:lower GI bleed with abd pain Type of Exam?:Initial Additional signs and symptoms?:na ED Prov Noteon 02-20-2024 ED Prov Note ED PROVIDER NOTE [facility] EMERGENCY DEPARTMENT NAME: Lana Rivera AGE: 38 y.o. : 1985 VISIT DATE: 02/20/2024 CSN: [id number] PCP: Aleena London MD Chief Complaint Patient [...] Resource Strain: High Risk (02/19/2020) Received from [facility] Overall Financial Resource Strain (CARDIA) Difficulty of Paying Living Expenses: Hard Food Insecurity: No Food Insecurity (02/19/2020) Received from [facility] Hunger Vital Sign Worried About Running Out of Food in the Last Year: Never true Ran Out of Food in the Last Year: Never true Transportation Needs: No Transportation Needs (02/19/2020) Received from [facility] PRAPARE - Transportation Lack of Transportation (Medical): No Lack of Transportation (Non-Medical): No Physical Activity: Insufficiently Active (01/27/2020) Received from [facility] Exercise Vital Sign Days of Exercise per Week: 2 days Minutes of Exercise per Session: 20 min Stress: No Stress Concern Present (01/27/2020) Received from [facility] - Occupational Stress Questionnaire Feeling of Stress : Only a little Social Connections: Moderately Isolated (01/27/2020) Received from [facility] Social Connection and Isolation Panel [NHANES] Frequency of Communication with Friends and Family: More than three times a week Frequency of Social Gatherings with Friends and Family: Twice a week Attends Episcopal Services: Never Active Member of Clubs or Organizations: No Attends Club or Organization Meetings: Never Marital Status: Housing Stability: Low Risk (01/27/2020) Received from [facility] Housing Stability Vital Sign Unable to Pay [...] systems revie (more content not included)... Normal [facility] POC CBC AND DIFFERENTIALon 1 BASOPHILS ABSOLUTE COUNT 0.03 K/mcL Normal 0.00-0.30 [facility] Basophils/100 WBC (Bld) 0.7 % Normal [facility] Eosinophils (Bld) [#/Vol] 0.17 10*3/uL Normal 0.00-0.50 [facility] Eosinophils/100 WBC (Bld) 3.9 % Normal [facility] Erythrocyte distribution width (RBC) [Ratio] 13.2 % Normal 11.6-14.8 [facility] Hematocrit (Bld) [Volume fraction] 42.1 % Normal 36.0-46.0 [facility] Hemoglobin (Bld) [Mass/Vol] 13.9 g/dL Normal 12.0-16.0 [facility] IG ABSOLUTE 0.02 K/mcL Normal 0.00-0.30 [facility] IG PERCENT 0.50 % Normal [facility] Comment on above: Result Comment: The IG parameter is the percentage of metamyelocytes, myelocytes and promyelocytes. An immature granulocyte count (IG) of 1% or more suggests the possibility of infection, an IG count of 3% is very likely related to an infection. Lymphocytes (Bld) [#/Vol] 1.20 10*3/uL Normal 0.90-4.00 [facility] Lymphocytes/100 WBC (Bld) 27.8 % Normal [facility] MCH (RBC) [Entitic mass] 28.6 pg Normal 26.0-34.0 [facility] MCV (RBC) [Entitic vol] 86.6 fL Normal 80.0-100.0 [facility] MEAN CORPUSCULAR HEMOGLOBIN CONC 33.0 g/dL Normal 31.0-37.0 [facility] Monocytes (Bld) [#/Vol] 0.39 10*3/uL Normal 0.30-0.90 [facility] Monocytes/100 WBC (Bld) 9.0 % Normal [facility] NEUTROPHILS ABSOLUTE COUNT 2.51 K/mcL Normal 1.70-7.00 [facility] Neutrophils/100 WBC (Bld) 58.1 % Normal [facility] Platelet mean volume (Bld) [Entitic vol] 11.0 fL Normal 9.4-12.4 [facility] Platelets (Bld) [#/Vol] 161 10*3/uL Normal 150-400 [facility] RBC (Bld) [#/Vol] 4.86 10*6/uL Normal 4.00-5.20 [facility] WBC (Bld) [#/Vol] 4.32 10*3/uL Low 4.50-11.00 [facility] POC LIVER PANEL PLUS [facility] 02-20-2024 Albumin [Mass/Vol] 4.0 g/dL Normal 3.2-5.2 [facility] ALP [Catalytic activity/Vol] 52 U/L Normal 40-140 [facility] ALT [Catalytic activity/Vol] 29 U/L Normal 0-40 [facility] Amylase [Catalytic activity/Vol] 26 U/L Normal 25-115 [facility] Amylase [Catalytic activity/Vol] 16 U/L Normal 7-33 [facility] AST [Catalytic activity/Vol] 25 U/L Normal 0-45 [facility] Bilirubin [Mass/Vol] 0.7 mg/dL Normal 0.0-1.3 [facility] Protein [Mass/Vol] 6.8 g/dL Normal 6.0-8.0 [facility] Beta HCG ( test) Ql (U) Negative Normal Negative [facility] Comment on above: Order Comment: Negat jimmie: Dilute urine specimens, as indicated by a low specific gravity (<1.010) may not contain representitive levels of hCG. If is still suspected, a serum test or repeat urine test using a first morning urine specimen should be considered. POC PT-INR - [facility] 02-20-20 24 POC INR (SIG ELITE) 1.7 High 0.8-1.1 [facility] POC [facility] BILIRUBIN, URINE Negative Normal Negative [facility] POC BLOOD, URINE Negative Normal Negative [facility] POC GLUCOSE, URINE Negative Normal Negative [facility] POC KETONES, URINE Negative Normal Negative [facility] POC LEUKOCYTE ESTERASE, URINE Negative Normal Negative [facility] POC NITRITE, URINE Negative Normal Negative [facility] POC PH, URINE 7.0 Normal 5.0-7.0 [facility] POC PROTEIN, URINE Negative Normal Negative [facility] POC SPECIFIC GRAVITY 1.020 Normal 1.005-1.025 [facility] POC UROBILINOGEN 0.2 mg/dL Normal < 2.0 [facility] POC VBG (EPOC) WITH FULL BARNES EL [facility] 02-20-2024 BASE EXCESS, VENOUS -0.6 Normal -2.0-2.0 [facility] Comment on above: Order Comment: Negat jimmie: Dilute urine specimens, as indicated by a low specific gravity (<1.010) may not contain representitive levels of hCG. If is still suspected, a serum test or repeat urine test using a first morning urine specimen should be considered. CALCIUM IONIZED 4.7 mg/dL Normal 4.5-5.3 [facility] Comment on above: Order Comment: Negat jimmie: Dilute urine specimens, as indicated by a low specific gravity (<1.010) may not contain representitive levels of hCG. If is still suspected, a serum test or repeat urine test using a first morning urine specimen should be considered. Chloride [Moles/Vol] 105 mmol/L Normal 98-108 [facility] Comment on above: Order Comment: Negat jimmie: Dilute urine specimens, as indicated by a low specific gravity (<1.010) may not contain representitive levels of hCG. If is still suspected, a serum test or repeat urine test using a first morning urine specimen should be considered. Creatinine [Mass/Vol] 0.73 mg/dL Normal 0.40-1.10 [facility] Comment on above: Order Comment: Negat jimmie: Dilute urine specimens, as indicated by a low specific gravity (<1.010) may not contain representitive levels of hCG. If is still suspected, a serum test or repeat urine test using a first morning urine specimen should be considered. Glucose [Mass/Vol] 117 mg/dL High 65-99 [facility] Comment on above: Order Comment: Negat jimmie: Dilute urine specimens, as indicated by a low specific gravity (<1.010) may not contain representitive levels of hCG. If is still suspected, a serum test or repeat urine test using a first morning urine specimen should be considered. HCO3 (Bld) [Moles/Vol] 24.9 mmol/L Normal 24.0-28.0 [facility] Comment on above: Order Comment: Negat jimmie: Dilute urine specimens, as indicated by a low specific gravity (<1.010) may not contain representitive levels of hCG. If is still suspected, a serum test or repeat urine test using a first morning urine specimen should be considered. Hematocrit (Bld) [Volume fraction] 42 % Normal 36-46 [facility] Comment on above: Order Comment: Negat jimmie: Dilute urine specimens, as indicated by a low specific gravity (<1.010) may not contain representitive levels of hCG. If is still suspected, a serum test or repeat urine test using a first morning urine specimen should be considered. HEMOGLOBIN, CALCULATED 14.2 g/dL Normal 12.0-16.0 [facility] Comment on above: Order Comment: Negat jimmie: Dilute urine specimens, as indicated by a low specific gravity (<1.010) may not contain representitive levels of hCG. If is still suspected, a serum test or repeat urine test using a first morning urine specimen should be considered. Oxygen saturation in Blood 55.2 % Normal 40.0-70.0 [facility] Comment on above: Order Comment: Negat jimmie: Dilute urine specimens, as indicated by a low specific gravity (<1.010) may not contain representitive levels of hCG. If is still suspected, a serum test or repeat urine test using a first morning urine specimen should be considered. PCO2 VENOUS 43.0 mm Hg Normal 41.0-51.0 [facility] Comment on above: Order Comment: Negat jimmie: Dilute urine specimens, as indicated by a low specific gravity (<1.010) may not contain representitive levels of hCG. If is still suspected, a serum test or repeat urine test using a first morning urine specimen should be considered. PH VENOUS 7.37 Normal 7.32-7.42 [facility] Comment on above: Order Comment: Negat jimmie: Dilute urine specimens, as indicated by a low specific gravity (<1.010) may not contain representitive levels of hCG. If is still suspected, a serum test or repeat urine test using a first morning urine specimen should be considered. PO2 VENOUS 30 mm Hg Normal 25-40 [facility] Comment on above: Order Comment: Negat jimmie: Dilute urine specimens, as indicated by a low specific gravity (<1.010) may not contain representitive levels of hCG. If is still suspected, a serum test or repeat urine test using a first morning urine specimen should be considered. POC GFR 109 mL/min/1.73 m2 Normal >=60 [facility] Comment on above: Order Comment: Negat jimmie: [...] equation. POC LACTATE 1.3 mmol/L Normal 0.6-2.0 [facility] Comment on above: Order Comment: Negat jimmie: Dilute urine specimens, as indicated by a low specific gravity (<1.010) may not contain representitive levels of hCG. If is still suspected, a serum test or repeat urine test using a first morning urine specimen should be considered. Potassium [Moles/Vol] 3.9 mmol/L Normal 3.5-5.1 [facility] Comment on above: Order Comment: Negat jimmie: Dilute urine specimens, as indicated by a low specific gravity (<1.010) may not contain representitive levels of hCG. If is still suspected, a serum test or repeat urine test using a first morning urine specimen should be considered. Sodium [Moles/Vol] 139 mmol/L Normal 135-145 [facility] Comment on above: Order Comment: Negat jimmie: Dilute urine specimens, as indicated by a low specific gravity (<1.010) may not contain representitive levels of hCG. If is still suspected, a serum test or repeat urine test using a first morning urine specimen should be considered. Urea nitrogen [Mass/Vol] 8 mg/dL Normal 8-25 [facility] Comment on above: Order Comment: Negat jimmie: [...] are negative. PAST HISTORY Past Medical History: @[facility]@ Past Surgical History: has a past [...] 3) . Follow-up: Aleena London MD [address] [facility] [id number] In 3 days Final Impression: 1. Right ovarian cyst (Please note that portions of this note were completed with a voice recognition program. Efforts were made to edit the dictations but occasionally words are mis-transcribed.) Libertad Foster MD 02/14/24 1221 AUTHENTICATED BY LIBERTAD FOSTER, ON 02/14/2024 12:21:14 [facility] ED Prov Noteon 02-11-2024 ED Prov Note ED PROVIDER NOTE [facility] EMERGENCY DEPARTMENT NAME: Lana Rivera AGE: 38 y.o. : 1985 VISIT DATE: 02/11/2024 CSN: [id number] PCP: Aleena London MD Chief Complaint Patient [...] Resource Strain: High Risk (02/19/2020) Received from [facility] Overall Financial Resource Strain (CARDIA) Difficulty of Paying Living Expenses: Hard Food Insecurity: No Food Insecurity (02/19/2020) Received from [facility] Hunger Vital Sign Worried About Running Out of Food in the Last Year: Never true Ran Out of Food in the Last Year: Never true Transportation Needs: No Transportation Needs (02/19/2020) Received from [facility] PRAPARE - Transportation Lack of Transportation (Medical): No Lack of Transportation (Non-Medical): No Physical Activity: Insufficiently Active (01/27/2020) Received from [facility] Exercise Vital Sign Days of Exercise per Week: 2 days Minutes of Exercise per Session: 20 min Stress: No Stress Concern Present (01/27/2020) Received from [facility] - Occupational Stress Questionnaire Feeling of Stress : Only a little Social Connections: Moderately Isolated (01/27/2020) Received from [facility] Social Connection and Isolation Panel [NHANES] Frequency of Communication with Friends and Family: More than three times a week Frequency of Social Gatherings with Friends and Family: Twice a week Attends Episcopal Services: Never Active Member of Clubs or Organizations: No Attends Club or Organization Meetings: Never Marital Status: Housing Stability: Low Risk (01/27/2020) Received from [facility] Housing Stability Vital Sign Unable to Pay [...] patient is ner (more content not included)... [facility] ED Prov Noteon 01-29-2024 ED Prov Note ED PROVIDER NOTE [facility] EMERGENCY DEPARTMENT NAME: Lana Rivera AGE: 38 y.o. : 1985 VISIT DATE: 01/29/2024 CSN: [id number] PCP: Aleena London MD Chief Complaint Patient [...] Resource Strain: High Risk (02/19/2020) Received from [facility] Overall Financial Resource Strain (CARDIA) Difficulty of Paying Living Expenses: Hard Food Insecurity: No Food Insecurity (02/19/2020) Received from [facility] Hunger Vital Sign Worried About Running Out of Food in the Last Year: Never true Ran Out of Food in the Last Year: Never true Transportation Needs: No Transportation Needs (02/19/2020) Received from [facility] PRAPARE - Transportation Lack of Transportation (Medical): No Lack of Transportation (Non-Medical): No Physical Activity: Insufficiently Active (01/27/2020) Received from [facility] Exercise Vital Sign Days of Exercise per Week: 2 days Minutes of Exercise per Session: 20 min Stress: No Stress Concern Present (01/27/2020) Received from [facility] - Occupational Stress Questionnaire Feeling of Stress : Only a little Social Connections: Moderately Isolated (01/27/2020) Received from [facility] Social Connection and Isolation Panel [NHANES] Frequency of Communication with Friends and Family: More than three times a week Frequency of Social Gatherings with Friends and Family: Twice a week Attends Episcopal Services: Never Active Member of Clubs or Organizations: No Attends Club or Organization Meetings: Never Marital Status: Housing Stability: Low Risk (01/27/2020) Received from [facility] Housing Stability Vital Sign Unable to Pay [...] Comments) In (more content not included)... Normal [facility] COVID-19, MOLECULARon 2023 SARS-CoV-2 (COVID-19) Ab IA Ql Not detected Normal Not Detected [facility] Comment on above: Result Comment: Test ing [...] supply per fill: (more content not included)... [facility] XR CHEST PA/APon 01-16-2024 XR CHEST PA/AP [...] on MonJan 16, 2024 4:29:21 PM EDT [facility] Comment on above: Order Comment: Injur y/Trauma [...] 16, 2024 1:09:35 PM EDT Transcribed by: MAROI MEZA on MonJan 16, 2024 1:21:47 PM EDT Finalized by: SHILPI PATEL on MonJan 16, 2024 4:29:26 PM EDT [facility] Comment on above: Order Comment: Injur y/Trauma or Illness?:Illness/Other How long have you had these symptoms (acute/chronic)?:Acute Reason for exam?:lower GI bleed with abd pain Type of Exam?:Initial Additional signs and symptoms?:na ED Prov Noteon 01-07-2024 ED Prov Note ED PROVIDER NOTE [facility] EMERGENCY DEPARTMENT NAME: Lana Rivera AGE: 38 y.o. 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 and picked [...] Resource Strain: High Risk (02/19/2020) Received from [facility] Overall Financial Resource Strain (CARDIA) Difficulty of Paying Living Expenses: Hard Food Insecurity: No Food Insecurity (02/19/2020) Received from [facility] Hunger Vital Sign Worried About Running Out of Food in the Last Year: Never true Ran Out of Food in the Last Year: Never true Transportation Needs: No Transportation Needs (02/19/2020) Received from [facility] PRAPARE - Transportation Lack of Transportation (Medical): No Lack of Transportation (Non-Medical): No Physical Activity: Insufficiently Active (01/27/2020) Received from [facility] Exercise Vital Sign Days of Exercise per Week: 2 days Minutes of Exercise per Session: 20 min Stress: No Stress Concern Present (01/27/2020) Received from [facility] of Occupational Health - Occupational Stress Questionnaire Feeling of Stress : Only a little Social Connections: Moderately Isolated (01/27/2020) Received from [facility] Social Connection and Isolation Panel [NHANES] Frequency of Communication with Friends and Family: More than three times a week Frequency of Social Gatherings with Friends and Family: Twice a week Attends [employer] Services: Never Active Member of Clubs or Organizations: No Attends Club or Organization Meetings: Never Marital Status: Housing Stability: Low Risk (01/27/2020) Received from [facility] Housing Stability Vital Sign Unable to Pay [...] (37.4 deg (more content not included)... Normal [facility] XR SHOULDER LEFT 2+ VIEWS (S TANDARD)on [...] EDT Transcribed by: FIDELINA BELKYS GERMÁN on [place] Jan 07, 2024 8:59:23 AM EDT Finalized by: BELKYS KITCHEN on MonJan 07, 2024 8:59:23 AM EDT [facility] Comment on above: Order Comment: Injur y/Trauma or Illness?:Illness/Other How long have you had these symptoms (acute/chronic)?:Acute Reason for exam?:sudden onset of lower abd and right sided back pain in the night hx of ovarian cyst and endometreosis Type of Exam?:Initial Additional signs and symptoms?:na ED Prov Noteon 12-01-2023 ED Prov Note ED PROVIDER NOTE [facility] EMERGENCY DEPARTMENT NAME: Lana Rivera AGE: 38 y.o. : 1985 VISIT DATE: 12/01/2023 CSN: [id number] PCP: Aleena London MD Chief Complaint Patient [...] Resource Strain: High Risk (02/19/2020) Received from [facility] Overall Financial Resource Strain (CARDIA) Difficulty of Paying Living Expenses: Hard Food Insecurity: No Food Insecurity (02/19/2020) Received from [facility] Hunger Vital Sign Worried About Running Out of Food in the Last Year: Never true Ran Out of Food in the Last Year: Never true Transportation Needs: No Transportation Needs (02/19/2020) Received from [facility] PRAPARE - Transportation Lack of Transportation (Medical): No Lack of Transportation (Non-Medical): No Physical Activity: Insufficiently Active (01/27/2020) Received from [facility] Exercise Vital Sign Days of Exercise per Week: 2 days Minutes of Exercise per Session: 20 min Stress: No Stress Concern Present (01/27/2020) Received from [facility] of Occupational Health - Occupational Stress Questionnaire Feeling of Stress : Only a little Social Connections: Moderately Isolated (01/27/2020) Received from [facility] Social Connection and Isolation Panel [NHANES] Frequency of Communication with Friends and Family: More than three times a week Frequency of Social Gatherings with Friends and Family: Twice a week Attends Ep[employer] Services: Never Active Member of Clubs or Organizations: No Attends Club or Organization Meetings: Never Marital Status: Housing Stability: Low Risk (01/27/2020) Received from [facility] Housing Stability Vital Sign Unable to Pay [...] a child Promet (more content not included)... [facility] XR ANKLE RIGHT 3+ VIEWS (STA NDARD)on [...] normal limits. IMPRESSION: No acute osseous abnormality. [facility] Workstation ID: [id number] Dictated by: JOHANNA MARCH on MonDec 01, 2023 1:52:10 PM EDT Transcribed by: CATINA NIETO on MonDec 01, 2023 2:05:31 PM EDT Finalized by: JOHANNA MARCH on MonDec 01, 2023 4:58:59 PM EDT [facility] Comment on above: Order Comment: Injur y/Trauma [...] radiopaque foreign body in the right foot. [employer] Workstation ID: [id number] -- NURSING NOTES AND [...] disc disease, will provide short course of [place] for pain and patient to continue ketoprofen [...] total) by mouth (more content not included)... [facility] XR FOOT RIGHT 3+ VIEWS (MOI WELDON)on [...] radiopaque foreign body in the right foot. [employer] Workstation ID: [id number] Dictated by: GREYSON SCHROEDER on Sat Nov 25, 2023 9:36:41 AM EDT Transcribed by: KENNY ARRIAGA on Sat Nov 25, 2023 9:39:36 AM EDT Finalized by: GREYSON SCHROEDER on [facility] Nov 25, 2023 10:29:24 AM EDT [facility] Comment on above: Order Comment: Injur y/Trauma or Illness?:Illness/Other How long have you had these symptoms (acute/chronic)?:Acute Reason for exam?:sudden onset of lower abd and right sided back pain in the night hx of ovarian cyst and endometreosis Type of Exam?:Initial Additional signs and symptoms?:na Absolute lymphocyte countOrd ered By: Sorin Jacobs on 09-29-2023 Lymphocytes Auto (Unsp spec) [#/Vol] 1.56 10*3/uL 0.83-4.51 [facility] Automated lymphocyte count a s percentage of total leukocytesOrdered By: Sorin Jacobs on 09-29-2023 Lymphocytes/100 WBC Auto (Unsp spec) 26.8 % 19-41 [facility] Basophil percentageOrdered B y: Sorin Jacobs on 09-29-2023 Basophil percentage 14.4 g/dL 12.0-15.0 [facility] Basophils (Bld) [#/Vol] 5.8 10*3/uL 4.4-11.0 [facility] Basophils (Bld) [#/Vol] 3.5 10*3/uL 2.0-7.7 [facility] Basophils/100 WBC (Bld) 59.6 % 47-70 [facility] Basophils/100 WBC (Bld) 9.4 % 0-10 [facility] Basophils/100 WBC (Bld) 3.4 % 0-5 [facility] Basophils/100 WBC (Bld) 0.5 % 0-1 [facility] Determination of erythrocyte mean corpuscular volume (MCV)Ordered By: Sorin Jacobs on 09-29-2023 MCV (RBC) [Entitic vol] 86.0 fL 81-99 [facility] Erythrocyte distribution wid th ratioOrdered By: Sorin Jacobs on 09-29-2023 Erythrocyte distribution width (RBC) [Ratio] 13.2 % 11.6-14.6 [facility] Erythrocyte distribution wid th standard deviationOrdered By: Sorin Jacobs on 09-29-2023 Erythrocyte distribution width (RBC) [Entitic vol] 41.2 fL 35.1-43.9 [facility] Hematocrit Auto (Bld) [Volum e fraction]Ordered By: Sorinautumn Jacobs on 09-29-2023 Hematocrit (Bld) [Volume fraction] 44.4 % 37-47 [facility] Immature granulocytes/100 WB C Auto (Bld)Ordered By: Sorinautumn Jacobs on 09-29-2023 Immature granulocytes/100 WBC (Bld) 0.300 % 0.0-0.9 [facility] No Panel InformationOrdered By: Sorinautumn Jacobs on 09-29-2023 27.9 pg 27.0-32.0 [facility] 32.4 g/dL 32-36 [facility] 173 K/mm3 150-450 [facility] 10.6 fl 6.2-12.0 [facility] 0 % 0-5 [facility] RBC Auto (Bld) [#/Vol]Ordere d By: Sorin Jacobs on 09-29-2023 RBC (Bld) [#/Vol] 5.16 10*6/uL 4.2-5.4 [facility] Throat specimen bacteria gregorio ntification by cultureOrdered By: Oscar Fuller on 09-21-2023 Bacteria identified Cx Nom (Throat) streptococcus isolated. [facility] Rapid group A Streptococcus screen at point of careon 09-14-2023 S. pyogenes Ag IA.rapid Ql (Throat) Negative [facility] Absolute lymphocyte countOrd ered By: Irving Lobato on 09-05-2023 Lymphocytes Auto (Unsp spec) [#/Vol] 1.28 10*3/uL 0.83-4.51 [facility] Automated lymphocyte count a s percentage of total leukocytesOrdered By: Irving Lobato on 09-05-2023 Lymphocytes/100 WBC Auto (Unsp spec) 27.5 % 19-41 [facility] Basophil percentageOrdered B y: Irving Lobato on 09-05-2023 Basophil percentage 13.7 g/dL 12.0-15.0 [facility] Basophil percentage 109 mg/dL 74-106 [facility] Basophil percentage 7.1 g/dL 6.4-8.2 [facility] Basophil percentage 0.30 mg/dL 0.20-1.00 [facility] Basophil percentage 139 mmol/L 136-145 [facility] Basophil percentage 3.7 mmol/L 3.5-5.1 [facility] Basophil percentage 108 mmol/L 98-107 [facility] Basophils (Bld) [#/Vol] 4.7 10*3/uL 4.4-11.0 [facility] Basophils (Bld) [#/Vol] 2.7 10*3/uL 2.0-7.7 [facility] Basophils/100 WBC (Bld) 57.3 % 47-70 [facility] Basophils/100 WBC (Bld) 9.4 % 0-10 [facility] Basophils/100 WBC (Bld) 4.5 % 0-5 [facility] Basophils/100 WBC (Bld) 0.9 % 0-1 [facility] Chlamydia trachomatis rRNA d etection by probe and target amplification methodOrdered By: Diana Gunn on 09-05-2023 C. trachomatis rRNA JONE+probe Ql (Unsp spec) Negative Negative [facility] Determination of erythrocyte mean corpuscular volume (MCV)Ordered By: Irving Lobato on 09-05-2023 MCV (RBC) [Entitic vol] 83.8 fL 81-99 [facility] Erythrocyte distribution wid th ratioOrdered By: Irving Lobato on 09-05-2023 Erythrocyte distribution width (RBC) [Ratio] 12.6 % 11.6-14.6 [facility] Erythrocyte distribution wid th standard deviationOrdered By: Irving Lobato on 09-05-2023 Erythrocyte distribution width (RBC) [Entitic vol] 38.2 fL 35.1-43.9 [facility] Gram stain for investigation of transfusion reactionOrdered By: Diana Gunn on 09-05-2023 Microscopic observation Gram stain Nom (Unsp spec) [facility] HIV 1 and HIV-2 antibody ass ay with HIV-1 p24 antigen detectionOrdered By: Diana Gunn on 09-05-2023 HIV 1+2 Ab+HIV1 p24 Ag IA Ql Non-Reactive Nonreactive [facility] Hematocrit Auto (Bld) [Volum e fraction]Ordered By: Irving Lobato on 09-05-2023 Hematocrit (Bld) [Volume fraction] 41.0 % 37-47 [facility] Immature granulocytes/100 WB C Auto (Bld)Ordered By: Irving Lobato on 09-05-2023 Immature granulocytes/100 WBC (Bld) 0.400 % 0.0-0.9 [facility] No Panel InformationOrdered By: Diana Gunn on 09-05-2023 Negative Negative [facility] Yeast, not Chela albicans [facility] Non-Reactive Nonreactive [facility] No Panel InformationOrdered By: Irving Lobato on 09-05-2023 28.0 pg 27.0-32.0 [facility] 33.4 g/dL 32-36 [facility] 193 K/mm3 150-450 [facility] 10.9 fl 6.2-12.0 [facility] 0 % 0-5 [facility] 13.0 SECONDS 11.7-14.9 [facility] 1.0 [facility] 84 mL/min >60 [facility] 102 mL/min >60 [facility] 11.1 RATIO 10-20 [facility] 3.5 g/dL 2.2-4.2 [facility] 1.0 RATIO 0.9-2.4 [facility] 66 U/L 45-117 [facility] 24 U/L 13-56 [facility] 26.0 mmol/L 21.0-32.0 [facility] < 2.90 mg/L 0.0-3.0 [facility] 288 pg/mL 211-911 [facility] No Panel Informationon 09-04 Negative [facility] RBC Auto (Bld) [#/Vol]Ordere d By: Irving Lobato on 09-05-2023 RBC (Bld) [#/Vol] 4.89 10*6/uL 4.2-5.4 [facility] Serum Treponema species anti body detectionOrdered By: Diana Gunn on 09-05-2023 Treponema sp Ab Ql (S) Non-Reactive [facility] Serum or plasma calcium mg urement (mass/volume)Ordered By: Irving Lobato on 09-05-2023 Calcium [Mass/Vol] 8.5 mg/dL 8.5-10.1 [facility] Serum or plasma creatinine m easurement (mass/volume)Ordered By: Irving Lobato on 09-05-2023 Creatinine [Mass/Vol] 0.81 mg/dL 0.55-1.02 [facility] Serum or plasma thyroid stim ulating hormone (TSH) measurement (units/volume)Ordered By: Irving Lobato on 09-05-2023 TSH Qn 0.81 uIU/mL 0.358-3.74 [facility] Serum or plasma urea nitroge n measurement (mass/volume)Ordered By: Irving Lobato on 09-05-2023 Urea nitrogen [Mass/Vol] 9 mg/dL 7-18 [facility] Thin prep Papanicolaou smear with manual screeningOrdered By: Irving Lobato on 09-05-2023 Thin prep Papanicolaou smear with manual screening 3.6 g/dL 3.2-5.0 [facility] Thin prep Papanicolaou smear with manual screening 14 U/L 15-37 [facility] Thin prep Papanicolaou smear with manual screening 5 5-15 [facility] Thin prep Papanicolaou smear with manual screening 1.24 ng/dL 0.76-1.46 [facility] Whole blood hemoglobin A1c/t otal hemoglobin ratio (mass fraction)Ordered By: Irving Lobato on 09-05-2023 HbA1c (Bld) [Mass fraction] 5.6 % 3.8-5.6 [facility] Bacteria identified Cx Nom ( Throat)Ordered By: Oscar Fuller on 08-31-2023 Throat specimen bacteria identification by culture Streptococcus group A [facility] CNOVSPon 08-16-2023 CNOVSP Visit (SP) Office ([place]) LANA RIVERA ([id number]) 1985 F Date Time Provider Department 08/16/23 2:30 PM ARGELIA VASQUEZ During your visit today, we recorded the following information about you: Jayla Medina, MIKE.CURRICULUM DEVELOPMENT COORDINATOR 08/29/2023 11:24 AM Signed PATIENT DID NOT [...] years as her is s/p vasectomy. 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 Garcia and Dr. Moore IMAGING: [...] before breakfa (more content not included)... Normal [facility] Absolute lymphocyte countOrd ered By: Ashutosh Barajas on 07-25-2023 Lymphocytes Auto (Unsp spec) [#/Vol] 2.07 10*3/uL 0.83-4.51 [facility] Automated lymphocyte count a s percentage of total leukocytesOrdered By: Ashutosh Barajas on 07-25-2023 Lymphocytes/100 WBC Auto (Unsp spec) 31.5 % 19-41 [facility] Basophil percentageOrdered B y: Ashutosh Barajas on 07-25-2023 Basophil percentage 13.6 g/dL 12.0-15.0 [facility] Basophil percentage 103 mg/dL 74-106 [facility] Basophil percentage 139 mmol/L 136-145 [facility] Basophil percentage 3.6 mmol/L 3.5-5.1 [facility] Basophil percentage 110 mmol/L 98-107 [facility] Basophils (Bld) [#/Vol] 6.6 10*3/uL 4.4-11.0 [facility] Basophils (Bld) [#/Vol] 3.7 10*3/uL 2.0-7.7 [facility] Basophils/100 WBC (Bld) 56.2 % 47-70 [facility] Basophils/100 WBC (Bld) 7.5 % 0-10 [facility] Basophils/100 WBC (Bld) 4.1 % 0-5 [facility] Basophils/100 WBC (Bld) 0.5 % 0-1 [facility] Basophil percentageOrdered B y: ED PROVIDER on 07-25-2023 Basophil percentage 0 SEEN /hpf 0-5 [facility] Bilirubin Test strip Ql (U)O rdered By: ED PROVIDER on 07-25-2023 Bilirubin Ql (U) Negative Negative [facility] Determination of erythrocyte mean corpuscular volume (MCV)Ordered By: Ashutosh Barajas on 07-25-2023 MCV (RBC) [Entitic vol] 84.2 fL 81-99 [facility] Erythrocyte distribution wid th ratioOrdered By: Ashutosh Barajas on 07-25-2023 Erythrocyte distribution width (RBC) [Ratio] 12.7 % 11.6-14.6 [facility] Erythrocyte distribution wid th standard deviationOrdered By: Ashutosh Barajas on 07-25-2023 Erythrocyte distribution width (RBC) [Entitic vol] 38.5 fL 35.1-43.9 [facility] Hematocrit Auto (Bld) [Volum e fraction]Ordered By: Ashutosh Barajas on 07-25-2023 Hematocrit (Bld) [Volume fraction] 40.4 % 37-47 [facility] Immature granulocytes/100 WB C Auto (Bld)Ordered By: Ashutosh Barajas on 07-25-2023 Immature granulocytes/100 WBC (Bld) 0.200 % 0.0-0.9 [facility] Ketones Test strip Ql (U)Ord ered By: ED PROVIDER on 07-25-2023 Ketones Ql (U) Negative Negative [facility] Mucus LM Ql (Urine sed)Order ed By: ED PROVIDER on 07-25-2023 Mucus Ql (Urine sed) 0 SEEN /hpf [facility] Nitrite Test strip Ql (U)Ord ered By: ED PROVIDER on 07-25-2023 Nitrite Ql (U) Negative Negative [facility] No Panel InformationOrdered By: Ashutosh Barajas on 07-25-2023 28.3 pg 27.0-32.0 [facility] 33.7 g/dL 32-36 [facility] 179 K/mm3 150-450 [facility] 10.9 fl 6.2-12.0 [facility] 0 % 0-5 [facility] 101 mL/min >60 [facility] 122 mL/min >60 [facility] 137.22 ml/min [facility] 15.8 RATIO 10-20 [facility] 26.0 mmol/L 21.0-32.0 [facility] No Panel InformationOrdered By: ED PROVIDER on 07-25-2023 0 SEEN /hpf 0-5 [facility] Protein Test strip Ql (U)Ord ered By: ED PROVIDER on 07-25-2023 Protein Ql (U) Negative Negative [facility] RBC Auto (Bld) [#/Vol]Ordere d By: Ashutosh Barajas on 07-25-2023 RBC (Bld) [#/Vol] 4.80 10*6/uL 4.2-5.4 [facility] Serum or plasma calcium mg urement (mass/volume)Ordered By: Ashutosh Barajas on 07-25-2023 Calcium [Mass/Vol] 8.8 mg/dL 8.5-10.1 [facility] Serum or plasma creatinine m easurement (mass/volume)Ordered By: Ashutosh Barajas on 07-25-2023 Creatinine [Mass/Vol] 0.70 mg/dL 0.55-1.02 [facility] Serum or plasma urea nitroge n measurement (mass/volume)Ordered By: Ashutosh Barajas on 07-25-2023 Urea nitrogen [Mass/Vol] 11 mg/dL 7-18 [facility] Squamous epithelial cells de tection in urine sediment by light microscopyOrdered By: ED PROVIDER on 07-25-2023 Epithelial cells.squamous LM Ql (Urine sed) 0-5 SEEN /hpf 5-10 [facility] Thin prep Papanicolaou smear with manual screeningOrdered By: Ashutosh Barajas on 07-25-2023 Thin prep Papanicolaou smear with manual screening 3 5-15 [facility] Urine blood detectionOrdered By: ED PROVIDER on 07-25-2023 RBC Ql (U) Negative Negative [facility] Urine clarityOrdered By: ED PROVIDER on 07-25-2023 Clarity (U) Clear Clear [facility] Urine color determinationOrd ered By: ED PROVIDER on 07-25-2023 Color (U) Yellow Yellow [facility] Urine glucose detectionOrder ed By: ED PROVIDER on 07-25-2023 Glucose Ql (U) Normal mg/dl Normal [facility] Urine leukocyte esterase det ection by dipstickOrdered By: ED PROVIDER on 07-25-2023 Leukocyte esterase Test strip Ql (U) Negative Negative [facility] Urine pHOrdered By: ED PROVI TITA on 07-25-2023 pH (U) 6.0 [pH] 5.0 - 8.0 [facility] Urine sediment bacteria coun t by microscopy (number/high power field)Ordered By: ED PROVIDER on 07-25-2023 Bacteria LM.HPF (Urine sed) [#/Area] 0 /[HPF] None Seen [facility] Urine specific gravity measu rementOrdered By: ED PROVIDER on 07-25-2023 Specific gravity (U) [Rel density] 1.015 1.002-1.030 [facility] Urine urobilinogen measureme ntOrdered By: ED PROVIDER on 07-25-2023 Urobilinogen Ql (U) Normal mg/dl Normal [facility] No Panel InformationOrdered By: Ashutosh Barajas on 07-18-2023 < 0.27 FEU/ug/m 0.27-0.49 [facility] 178 U/L 26-192 [facility] Absolute lymphocyte countOrd ered By: Ralph Tracy on 05-03-2023 Lymphocytes Auto (Unsp spec) [#/Vol] 1.14 10*3/uL 0.83-4.51 [facility] Basophil percentageOrdered B y: Ralph Tracy on 05-03-2023 Basophil percentage 159 mg/dL 74-106 [facility] Basophil percentage 7.0 g/dL 6.4-8.2 [facility] Basophil percentage 0.40 mg/dL 0.20-1.00 [facility] Basophil percentage 137 mmol/L 136-145 [facility] Basophil percentage 3.6 mmol/L 3.5-5.1 [facility] Basophil percentage 107 mmol/L 98-107 [facility] Basophil percentage 13.0 umol/L 11-32 [facility] Basophil percentage 168 U/L 84-246 [facility] Basophil percentage Not Reportable [facility] Basophils (Bld) [#/Vol] 4.8 10*3/uL 4.4-11.0 [facility] Basophils (Bld) [#/Vol] 3.1 10*3/uL 2.0-7.7 [facility] Basophils/100 WBC (Bld) 65.8 % 47-70 [facility] Basophils/100 WBC (Bld) 3.8 % 0-5 [facility] Basophils/100 WBC (Bld) 0.6 % 0-1 [facility] Blood erythrocytes count (nu mber/volume)Ordered By: Ralph Tracy on 05-03-2023 RBC (Bld) [#/Vol] 5.11 10*6/uL 4.2-5.4 [facility] Blood hemoglobin measurement (mass/volume)Ordered By: Ralph Tracy on 05-03-2023 Hemoglobin (Bld) [Mass/Vol] 14.1 g/dL 12.0-15.0 [facility] Blood lymphocytes/100 leukoc ytesOrdered By: Ralph Tracy on 05-03-2023 Lymphocytes/100 WBC (Bld) 23.9 % 19-41 [facility] Blood monocytes/100 leukocyt esOrdered By: Ralph Tracy on 05-03-2023 Monocytes/100 WBC (Bld) 5.5 % 0-10 [facility] Blood platelet mean volumeOr dered By: Ralph Tracy on 05-03-2023 Platelet mean volume (Bld) [Entitic vol] 11.4 fL 6.2-12.0 [facility] Determination of erythrocyte mean corpuscular volume (MCV)Ordered By: Ralph Tracy on 05-03-2023 MCV (RBC) [Entitic vol] 86.3 fL 81-99 [facility] Erythrocyte sedimentation ra teOrdered By: Ralph Tracy on 05-03-2023 ESR (Bld) [Velocity] 2 mm/h 0-30 [facility] Hematocrit Auto (Bld) [Volum e fraction]Ordered By: Ralph Tracy on 05-03-2023 Hematocrit (Bld) [Volume fraction] 44.1 % 37-47 [facility] INR in Blood by Coagulation assayOrdered By: Ralph Tracy on 05-03-2023 INR Coag (Bld) [Relative time] 1.0 {INR} [facility] MCHC Auto (RBC) [Mass/Vol]Or dered By: Ralph Tracy on 05-03-2023 MCHC (RBC) [Mass/Vol] 32.0 g/dL 32-36 [facility] No Panel InformationOrdered By: Ralph Tracy on 05-03-2023 27.6 pg 27.0-32.0 [facility] 13.1 % 11.6-14.6 [facility] 40.8 fl 35.1-43.9 [facility] 0.400 % 0.0-0.9 [facility] 0 % 0-5 [facility] 13.2 SECONDS 11.7-14.9 [facility] 75 mL/min >60 [facility] 91 mL/min >60 [facility] 10.0 RATIO 10-20 [facility] 3.4 g/dL 2.2-4.2 [facility] 65 U/L 45-117 [facility] 20 U/L 13-56 [facility] 24.0 mmol/L 21.0-32.0 [facility] 22.6 ng/mL [facility] Negative Negative [facility] Not Reportable [facility] <2 U/mL 0-5 [facility] Platelets bldOrdered By: Mir Tracy on 05-03-2023 Platelets (Bld) [#/Vol] 180 10*3/uL 150-450 [facility] Serum DNA double strand anti body assay (units/volume)Ordered By: Ralph Tracy on 05-03-2023 DNA double strand Ab Qn (S) Not Reportable [facility] Serum Alise-1 antibody assay (u nits/volume)Ordered By: Ralph Tracy on 05-03-2023 Alise-1 extractable nuclear Ab Qn (S) Not Reportable [facility] Serum Scl-70 extractable nuc lear antibody assay (units/volume)Ordered By: Ralph Tracy on 05-03-2023 SCL-70 extractable nuclear Ab Qn (S) Not Reportable [facility] Serum Freedman extractable nucl ear antibody detectionOrdered By: Ralph Tracy on 05-03-2023 Freedman extractable nuclear Ab Ql (S) Not Reportable [facility] Serum or plasma C reactive p rotein measurement (mass/volume)Ordered By: Ralph Tracy on 05-03-2023 CRP [Mass/Vol] mg/L 0.0-3.0 [facility] Serum or plasma albumin mg urement (mass/volume)Ordered By: Ralph Tracy on 05-03-2023 Albumin [Mass/Vol] 3.6 g/dL 3.2-5.0 [facility] Serum or plasma albumin/glob ulin mass ratioOrdered By: Ralph Tracy on 05-03-2023 Albumin/Globulin [Mass ratio] 1.1 {ratio} 0.9-2.4 [facility] Serum or plasma [id number] protein tumor marker measurement (units/volume)Ordered By: Ralph Tracy on 05-03-2023 AFP.tumor marker Qn 2.2 ng/mL 0.0-6.4 [facility] Serum or plasma calcium mg urement (mass/volume)Ordered By: Ralph Tracy on 05-03-2023 Calcium [Mass/Vol] 8.9 mg/dL 8.5-10.1 [facility] Serum or plasma creatinine m easurement (mass/volume)Ordered By: Ralph Tracy on 05-03-2023 Creatinine [Mass/Vol] 0.90 mg/dL 0.55-1.02 [facility] Serum or plasma urea nitroge n measurement (mass/volume)Ordered By: Ralph Tracy on 05-03-2023 Urea nitrogen [Mass/Vol] 9 mg/dL 7-18 [facility] Thin prep Papanicolaou smear with manual screeningOrdered By: Ralph Tracy on 05-03-2023 Thin prep Papanicolaou smear with manual screening 8 U/L 15-37 [facility] Thin prep Papanicolaou smear with manual screening 6 5-15 [facility] No Panel Informationon 04-19 5.7 % 4.2-6.3 [facility] No Panel InformationOrdered By: Cassidy Moore on 04-06-2023 1.15 ng/dL 0.76-1.46 [facility] 4.7 mIU/mL [facility] 95.1 ug/dL 57.3-279.2 [facility] Serum or plasma 17-hydroxypr ogesterone measurement (mass/volume)Ordered By: Cassidy Moore on 04-06-2023 17-Hydroxyprogesterone [Mass/Vol] 17 ng/dL . [facility] Serum or plasma estradiol (E 2) measurement (mass/volume)Ordered By: Cassidy Moore on 04-06-2023 E2 [Mass/Vol] 29.2 pg/mL [facility] Serum or plasma testosterone free measurement (mass/volume)Ordered By: Cassidy Moore on 04-06-2023 Testosterone Free [Mass/Vol] 0.4 pg/mL 0.0-4.2 [facility] Basophil percentageOrdered B y: Ralph Tracy on 03-28-2023 Basophil percentage 109 mg/dL 74-106 [facility] Basophil percentage 6.9 g/dL 6.4-8.2 [facility] Basophil percentage 0.30 mg/dL 0.20-1.00 [facility] Basophil percentage 137 mmol/L 136-145 [facility] Basophil percentage 3.9 mmol/L 3.5-5.1 [facility] Basophil percentage 105 mmol/L 98-107 [facility] Direct bilirubinOrdered By: Ralph Tracy on 03-28-2023 Bilirubin.direct [Mass/Vol] 0.11 mg/dL 0.00-0.30 [facility] No Panel InformationOrdered By: Ralph Tracy on 03-28-2023 81 mL/min >60 [facility] 98 mL/min >60 [facility] 10.7 RATIO 10-20 [facility] 3.3 g/dL 2.2-4.2 [facility] 65 U/L 45-117 [facility] 23 U/L 13-56 [facility] 31.0 mmol/L 21.0-32.0 [facility] Serum or plasma albumin mg urement (mass/volume)Ordered By: Ralph Tracy on 03-28-2023 Albumin [Mass/Vol] 3.6 g/dL 3.2-5.0 [facility] Serum or plasma albumin/glob ulin mass ratioOrdered By: Ralph Tracy on 03-28-2023 Albumin/Globulin [Mass ratio] 1.1 {ratio} 0.9-2.4 [facility] Serum or plasma calcium mg urement (mass/volume)Ordered By: Ralph Tracy on 03-28-2023 Calcium [Mass/Vol] 9.0 mg/dL 8.5-10.1 [facility] Serum or plasma creatinine m easurement (mass/volume)Ordered By: Ralph Tracy on 03-28-2023 Creatinine [Mass/Vol] 0.84 mg/dL 0.55-1.02 [facility] Serum or plasma urea nitroge n measurement (mass/volume)Ordered By: Ralph Tracy on 03-28-2023 Urea nitrogen [Mass/Vol] 9 mg/dL 7-18 [facility] Thin prep Papanicolaou smear with manual screeningOrdered By: Ralph Tracy on 03-28-2023 Thin prep Papanicolaou smear with manual screening 12 U/L 15-37 [facility] Thin prep Papanicolaou smear with manual screening 1 5-15 [facility] No Panel InformationOrdered By: Aleena London on 03-03-2023 1.24 uIU/mL 0.358-3.74 [facility] Absolute lymphocyte countOrd ered By: Loly Sierra on 02-08-2023 Lymphocytes Auto (Unsp spec) [#/Vol] 1.87 10*3/uL 0.83-4.51 [facility] Basophil percentageOrdered B y: Loly Sierra on 02-08-2023 Basophil percentage 0 SEEN /hpf 0-5 [facility] Basophil percentage 110 mg/dL 74-106 [facility] Basophil percentage 6.7 g/dL 6.4-8.2 [facility] Basophil percentage 0.10 mg/dL 0.20-1.00 [facility] Basophil percentage 138 mmol/L 136-145 [facility] Basophil percentage 3.8 mmol/L 3.5-5.1 [facility] Basophil percentage 107 mmol/L 98-107 [facility] Basophils (Bld) [#/Vol] 5.6 10*3/uL 4.4-11.0 [facility] Basophils (Bld) [#/Vol] 2.9 10*3/uL 2.0-7.7 [facility] Basophils/100 WBC (Bld) 51.2 % 47-70 [facility] Basophils/100 WBC (Bld) 4.5 % 0-5 [facility] Basophils/100 WBC (Bld) 0.9 % 0-1 [facility] Bilirubin Test strip Ql (U)O rdered By: Loly Sierra on 02-08-2023 Bilirubin Ql (U) Negative Negative [facility] Blood erythrocytes count (nu mber/volume)Ordered By: Loly Sierra on 02-08-2023 RBC (Bld) [#/Vol] 4.74 10*6/uL 4.2-5.4 [facility] Blood hemoglobin measurement (mass/volume)Ordered By: Loly Sierra on 02-08-2023 Hemoglobin (Bld) [Mass/Vol] 13.2 g/dL 12.0-15.0 [facility] Blood lymphocytes/100 leukoc ytesOrdered By: Loly Sierra on 02-08-2023 Lymphocytes/100 WBC (Bld) 33.5 % 19-41 [facility] Blood monocytes/100 leukocyt esOrdered By: Loly Sierra on 02-08-2023 Monocytes/100 WBC (Bld) 9.5 % 0-10 [facility] Blood platelet mean volumeOr dered By: Loly Sierra on 02-08-2023 Platelet mean volume (Bld) [Entitic vol] 10.8 fL 6.2-12.0 [facility] Determination of erythrocyte mean corpuscular volume (MCV)Ordered By: Loly Sierra on 02-08-2023 MCV (RBC) [Entitic vol] 86.5 fL 81-99 [facility] Hematocrit Auto (Bld) [Volum e fraction]Ordered By: Loly Sierra on 02-08-2023 Hematocrit (Bld) [Volume fraction] 41.0 % 37-47 [facility] Ketones Test strip Ql (U)Ord ered By: Loly Sierra on 02-08-2023 Ketones Ql (U) Negative Negative [facility] MCHC Auto (RBC) [Mass/Vol]Or dered By: Loly Sierra on 02-08-2023 MCHC (RBC) [Mass/Vol] 32.2 g/dL 32-36 [facility] Mucus LM Ql (Urine sed)Order ed By: Loly Sierra on 02-08-2023 Mucus Ql (Urine sed) 0 SEEN /hpf [facility] Nitrite Test strip Ql (U)Ord ered By: Loly Sierra on 02-08-2023 Nitrite Ql (U) Negative Negative [facility] No Panel InformationOrdered By: Loly Sierra on 02-08-2023 27.8 pg 27.0-32.0 [facility] 13.0 % 11.6-14.6 [facility] 40.7 fl 35.1-43.9 [facility] 0.400 % 0.0-0.9 [facility] 0 % 0-5 [facility] 86 mL/min >60 [facility] 104 mL/min >60 [facility] 90.75 ml/min [facility] 12.4 RATIO 10-20 [facility] 3.2 g/dL 2.2-4.2 [facility] 61 U/L 45-117 [facility] 24 U/L 13-56 [facility] 27.0 mmol/L 21.0-32.0 [facility] Platelets bldOrdered By: Reyna Sierra on 02-08-2023 Platelets (Bld) [#/Vol] 177 10*3/uL 150-450 [facility] Protein Test strip Ql (U)Ord ered By: Loly Sierra on 02-08-2023 Protein Ql (U) Negative Negative [facility] Serum or plasma albumin mg urement (mass/volume)Ordered By: Loly Sierra on 02-08-2023 Albumin [Mass/Vol] 3.5 g/dL 3.2-5.0 [facility] Serum or plasma albumin/glob ulin mass ratioOrdered By: Loly Sierra on 02-08-2023 Albumin/Globulin [Mass ratio] 1.1 {ratio} 0.9-2.4 [facility] Serum or plasma calcium mg urement (mass/volume)Ordered By: Loly Sierra on 02-08-2023 Calcium [Mass/Vol] 8.8 mg/dL 8.5-10.1 [facility] Serum or plasma creatinine m easurement (mass/volume)Ordered By: Loly Sierra on 02-08-2023 Creatinine [Mass/Vol] 0.81 mg/dL 0.55-1.02 [facility] Serum or plasma urea nitroge n measurement (mass/volume)Ordered By: Loly Sierra on 02-08-2023 Urea nitrogen [Mass/Vol] 10 mg/dL 7-18 [facility] Squamous epithelial cells de tection in urine sediment by light microscopyOrdered By: Loly Sierra on 02-08-2023 Epithelial cells.squamous LM Ql (Urine sed) 0-5 SEEN /hpf 5-10 [facility] Thin prep Papanicolaou smear with manual screeningOrdered By: Loly Sierra on 02-08-2023 Thin prep Papanicolaou smear with manual screening 12 U/L 15-37 [facility] Thin prep Papanicolaou smear with manual screening 4 5-15 [facility] Urine blood detectionOrdered By: Loly Sierra on 02-08-2023 RBC Ql (U) Negative Negative [facility] RBC Ql (U) 0 SEEN /hpf 0-5 [facility] Urine clarityOrdered By: Reyna Sierra on 02-08-2023 Clarity (U) Clear Clear [facility] Urine color determinationOrd ered By: Loly Sierra on 02-08-2023 Color (U) Yellow Yellow [facility] Urine glucose detectionOrder ed By: Loly Sierra on 02-08-2023 Glucose Ql (U) Normal mg/dl Normal [facility] Urine leukocyte esterase det ection by dipstickOrdered By: Loly Sierra on 02-08-2023 Leukocyte esterase Test strip Ql (U) Negative Negative [facility] Urine pHOrdered By: Loly ferris on 02-08-2023 pH (U) 6.0 [pH] 5.0 - 8.0 [facility] Urine sediment bacteria coun t by microscopy (number/high power field)Ordered By: Loly Sierra on 02-08-2023 Bacteria LM.HPF (Urine sed) [#/Area] 0 /[HPF] None Seen [facility] Urine specific gravity measu rementOrdered By: Loly Sierra on 02-08-2023 Specific gravity (U) [Rel density] 1.020 1.002-1.030 [facility] Urobilinogen Auto test strip Ql (U)Ordered By: Loly Sierra on 02-08-2023 Urobilinogen Ql (U) Normal mg/dl Normal [facility] LANA RIVERA ([id number]) 1985 F Date Time Provider Department 02/02/23 NIMA KAUR During your visit today, we recorded the following information about you: Radha Stark 02/02/2023 2:03 PM Signed Lana Rivera is calling Nima Kaur MD today with concern regarding appointment on 02/06 with [employer] [facility]. Patient asking who scheduled appointment because she did not. Please return call to patient. Patient has been identified by name and birthdate. Duration of symptoms: N/A Person calling: self Call patient at: on cell [phone] (home) [phone] (cell) Was an appointment scheduled: No Closing statement: Results or non-symptom based questions: Thank you for calling [facility], your call will be returned within [...] Fully Assessed Reason for Visit: Patient Question [8307] Prescriptions as of 02/02/2023 - hydrOXYzine pamoate [...] Status:Closed by RIYA AGUILAR on 02/02/23 Normal [facility] Absolute lymphocyte countOrd ered By: Stephany Robbins on 12-25-2022 Lymphocytes Auto (Unsp spec) [#/Vol] 1.23 10*3/uL 0.83-4.51 [facility] Basophil percentageOrdered B y: Stephany Robbins on 12-25-2022 Basophil percentage 124 mg/dL 74-106 [facility] Basophil percentage 138 mmol/L 136-145 [facility] Basophil percentage 3.8 mmol/L 3.5-5.1 [facility] Basophil percentage 106 mmol/L 98-107 [facility] Basophils (Bld) [#/Vol] 4.6 10*3/uL 4.4-11.0 [facility] Basophils (Bld) [#/Vol] 2.7 10*3/uL 2.0-7.7 [facility] Basophils/100 WBC (Bld) 0.9 % 0-1 [facility] Basophils/100 WBC (Bld) 58.5 % 47-70 [facility] Basophils/100 WBC (Bld) 5.7 % 0-5 [facility] Chloride [Moles/Vol] 106 mmol/L 98-107 [facility] Eosinophils/100 WBC (Bld) 5.7 % 0-5 [facility] Glucose [Mass/Vol] 124 mg/dL 74-106 [facility] Comment on above: Fasting Glucose resu lt from 100 to 125 mg/dL suggests IMPAIRED HOMEOSTASIS per A.D.A. criteria. Neutrophils (Bld) [#/Vol] 2.7 10*3/uL 2.0-7.7 [facility] Neutrophils/100 WBC (Bld) 58.5 % 47-70 [facility] Potassium [Moles/Vol] 3.8 mmol/L 3.5-5.1 [facility] Sodium [Moles/Vol] 138 mmol/L 136-145 [facility] WBC (Bld) [#/Vol] 4.6 10*3/uL 4.4-11.0 [facility] Blood erythrocytes count (nu mber/volume)Ordered By: Stephany Robbins on 12-25-2022 RBC (Bld) [#/Vol] 4.87 10*6/uL 4.2-5.4 [facility] Blood hemoglobin measurement (mass/volume)Ordered By: Stephany Robbins on 12-25-2022 Hemoglobin (Bld) [Mass/Vol] 13.4 g/dL 12.0-15.0 [facility] Blood lymphocytes/100 leukoc ytesOrdered By: Stephany Robbins on 12-25-2022 Lymphocytes/100 WBC (Bld) 26.7 % 19-41 [facility] Blood monocytes/100 leukocyt esOrdered By: Stephany Robbins on 12-25-2022 Monocytes/100 WBC (Bld) 7.8 % 0-10 [facility] Blood platelet mean volumeOr dered By: Stephany Robbins on 12-25-2022 Platelet mean volume (Bld) [Entitic vol] 10.8 fL 6.2-12.0 [facility] Determination of erythrocyte mean corpuscular volume (MCV)Ordered By: Stephany Robbins on 12-25-2022 MCV (RBC) [Entitic vol] 86.4 fL 81-99 [facility] Hematocrit Auto (Bld) [Volum e fraction]Ordered By: Stephany Robbins on 12-25-2022 Hematocrit (Bld) [Volume fraction] 42.1 % 37-47 [facility] Laboratory - Chemistry and C hemistry - challengeOrdered By: Stephany Robbins on 12-25-2022 CO2 [Moles/Vol] 26.0 mmol/L 21.0-32.0 [facility] Urea nitrogen/Creatinine [Mass ratio] 11.3 mg/mg 10-20 [facility] - Hematology and Cell countsOrdered By: Stephany Robbins on 12-25-2022 Erythrocyte distribution width (RBC) [Entitic vol] 40.4 fL 35.1-43.9 [facility] Erythrocyte distribution width (RBC) [Ratio] 13.0 % 11.6-14.6 [facility] Immature granulocytes/100 WBC (Bld) 0.400 % 0.0-0.9 [facility] Comment on above: IG% - Immature Granu locytes (promyelocytes, myelocytes and metamyelocytes) > 1% indicates that a LEFT SHIFT is Present. MCH (RBC) [Entitic mass] 27.5 pg 27.0-32.0 [facility] Nucleated RBC/100 WBC (Bld) [Ratio] 0 % 0-5 [facility] MCHC Auto (RBC) [Mass/Vol]Or dered By: Stephany Robbins on 12-25-2022 MCHC (RBC) [Mass/Vol] 31.8 g/dL 32-36 [facility] No Panel InformationOrdered By: Stephany Robbins on 12-25-2022 Estimated Creatinine Clearance Calc 103.53 ml/min [facility] Estimated GFR (MDRD) Amer 120 mL/min >60 [facility] Comment on above: GFR Calc Estimated GFR (MDRD) Non-Af Amer 100 mL/min >60 [facility] Comment on above: Non- GFR Calc Troponin I High Sensitivity 3 pg/mL 3.0-54.0 [facility] Comment on above: Please Note: New Chantal t Units and Gender Specific Reference Ranges. For more information see Policy Stat Procedure [facility]uden High Sensitivity Troponin (TNIH) and attachments. 27.5 pg 27.0-32.0 [facility] 13.0 % 11.6-14.6 [facility] 40.4 fl 35.1-43.9 [facility] 0.400 % 0.0-0.9 [facility] 0 % 0-5 [facility] 100 mL/min >60 [facility] 120 mL/min >60 [facility] 103.53 ml/min [facility] 11.3 RATIO 10-20 [facility] 3 pg/mL 3.0-54.0 [facility] 26.0 mmol/L 21.0-32.0 [facility] Platelets bldOrdered By: Tegan Robbins on 12-25-2022 Platelets (Bld) [#/Vol] 158 10*3/uL 150-450 [facility] Serum or plasma calcium mg urement (mass/volume)Ordered By: Stephany Robbins on 12-25-2022 Calcium [Mass/Vol] 8.6 mg/dL 8.5-10.1 [facility] Serum or plasma creatinine m easurement (mass/volume)Ordered By: Stephany Robbins on 12-25-2022 Creatinine [Mass/Vol] 0.71 mg/dL 0.55-1.02 [facility] Comment on above: The validity of the calculated GFR & GFRAA in patients over 70 years has not been determined. Clinical correlation is essential. Serum or plasma urea nitroge n measurement (mass/volume)Ordered By: Stephany Robbins on 12-25-2022 Urea nitrogen [Mass/Vol] 8 mg/dL 7-18 [facility] Thin prep Papanicolaou smear with manual screeningOrdered By: Stephany Robbins on 12-25-2022 Thin prep Papanicolaou smear with manual screening 6 5-15 [facility] Chlamydia trachomatis rRNA d etection by probe and target amplification methodOrdered By: Hanh Balderas on 12-15-2022 C. trachomatis rRNA JONE+probe Ql (Unsp spec) Negative Negative [facility] Gram stain for investigation of transfusion reactionOrdered By: Hanh Balderas on 12-15-2022 Microscopic observation Gram stain Nom (Unsp spec) [facility] Microscopic observation Gram stain Nom (Unsp spec) [facility] - Microbiology an d Antimicrobial susceptibilityOrdered By: Hanh Balderas on 12-15-2022 N. gonorrhoeae DNA JONE+probe Ql (Unsp spec) Negative Negative [facility] Comment on above: Performed at: =[address] [id number] Director: Love Vance MD, Phone: [phone] No Panel InformationOrdered By: Hanh Balderas on 12-15-2022 Negative Negative [facility] No Panel Informationon 12-15 [facility] Trichomonas (Rapid) Negative [facility] Negative [facility] Thin prep Papanicolaou smear with manual screeningOrdered By: Hanh Balderas on 12-15-2022 Thin prep Papanicolaou smear with manual screening [facility] Thin prep Papanicolaou smear with manual screening [facility] Absolute lymphocyte countOrd ered By: Jesi Padilla on 11-19-2022 Lymphocytes Auto (Unsp spec) [#/Vol] 1.83 10*3/uL 0.83-4.51 [facility] Basophil percentageOrdered B y: Jesi Padilla on 11-19-2022 Basophil percentage 95 mg/dL 74-106 [facility] Basophil percentage 7.4 g/dL 6.4-8.2 [facility] Basophil percentage 0.40 mg/dL 0.20-1.00 [facility] Basophil percentage 138 mmol/L 136-145 [facility] Basophil percentage 3.5 mmol/L 3.5-5.1 [facility] Basophil percentage 105 mmol/L 98-107 [facility] Basophils (Bld) [#/Vol] 6.0 10*3/uL 4.4-11.0 [facility] Basophils (Bld) [#/Vol] 3.3 10*3/uL 2.0-7.7 [facility] Basophils/100 WBC (Bld) 55.7 % 47-70 [facility] Basophils/100 WBC (Bld) 4.7 % 0-5 [facility] Basophils/100 WBC (Bld) 0.5 % 0-1 [facility] Bilirubin [Mass/Vol] 0.40 mg/dL 0.20-1.00 [facility] Comment on above: For patients on eltr ombopag therapy, use of Dimension [facility] TBIL is not recommended. Chloride [Moles/Vol] 105 mmol/L 98-107 [facility] Eosinophils/100 WBC (Bld) 4.7 % 0-5 [facility] Glucose [Mass/Vol] 95 mg/dL 74-106 [facility] Neutrophils (Bld) [#/Vol] 3.3 10*3/uL 2.0-7.7 [facility] Neutrophils/100 WBC (Bld) 55.7 % 47-70 [facility] Potassium [Moles/Vol] 3.5 mmol/L 3.5-5.1 [facility] Protein [Mass/Vol] 7.4 g/dL 6.4-8.2 [facility] Sodium [Moles/Vol] 138 mmol/L 136-145 [facility] WBC (Bld) [#/Vol] 6.0 10*3/uL 4.4-11.0 [facility] Blood erythrocytes count (nu mber/volume)Ordered By: Jesi Padilla on 11-19-2022 RBC (Bld) [#/Vol] 4.91 10*6/uL 4.2-5.4 [facility] Blood hemoglobin measurement (mass/volume)Ordered By: Jesi Padilla on 11-19-2022 Hemoglobin (Bld) [Mass/Vol] 13.5 g/dL 12.0-15.0 [facility] Blood lymphocytes/100 leukoc ytesOrdered By: Jesi Padilla on 11-19-2022 Lymphocytes/100 WBC (Bld) 30.7 % 19-41 [facility] Blood monocytes/100 leukocyt esOrdered By: Jesi Padilla on 11-19-2022 Monocytes/100 WBC (Bld) 8.1 % 0-10 [facility] Blood platelet mean volumeOr dered By: Jesi Padilla on 11-19-2022 Platelet mean volume (Bld) [Entitic vol] 10.7 fL 6.2-12.0 [facility] Determination of erythrocyte mean corpuscular volume (MCV)Ordered By: Jesi Padilla on 11-19-2022 MCV (RBC) [Entitic vol] 85.3 fL 81-99 [facility] Hematocrit Auto (Bld) [Volum e fraction]Ordered By: Jesi Padilla on 11-19-2022 Hematocrit (Bld) [Volume fraction] 41.9 % 37-47 [facility] - Chemistry and C hemistry - challengeOrdered By: Jesi Padilla on 11-19-2022 ALP [Catalytic activity/Vol] 74 U/L 45-117 [facility] ALT [Catalytic activity/Vol] 25 U/L 13-56 [facility] CO2 [Moles/Vol] 30.0 mmol/L 21.0-32.0 [facility] Globulin (S) [Mass/Vol] 3.7 g/dL 2.2-4.2 [facility] Lipase [Catalytic activity/Vol] 30 U/L 13-75 [facility] Comment on above: Please note:LIPASE r evised reference range effective 23. New Lipase methodology. Expected to produce lower values than the previous assay method. NEW Reference Range: 13 - 75 U/L Urea nitrogen/Creatinine [Mass ratio] 13.7 mg/mg 10-20 [facility] - Hematology and Cell countsOrdered By: Jesi Padilla on 11-19-2022 Erythrocyte distribution width (RBC) [Entitic vol] 39.4 fL 35.1-43.9 [facility] Erythrocyte distribution width (RBC) [Ratio] 12.7 % 11.6-14.6 [facility] Immature granulocytes/100 WBC (Bld) 0.300 % 0.0-0.9 [facility] Comment on above: IG% - Immature Granu locytes (promyelocytes, myelocytes and metamyelocytes) > 1% indicates that a LEFT SHIFT is Present. MCH (RBC) [Entitic mass] 27.5 pg 27.0-32.0 [facility] Nucleated RBC/100 WBC (Bld) [Ratio] 0 % 0-5 [facility] MCHC Auto (RBC) [Mass/Vol]Or dered By: Jesi Padilla on 11-19-2022 MCHC (RBC) [Mass/Vol] 32.2 g/dL 32-36 [facility] No Panel InformationOrdered By: Jesi Padilla on 11-19-2022 Estimated Creatinine Clearance Calc 91.88 ml/min [facility] Estimated GFR (MDRD) Amer 105 mL/min >60 [facility] Comment on above: GFR Calc Estimated GFR (MDRD) Non-Af Amer 86 mL/min >60 [facility] Comment on above: Non- GFR Calc 27.5 pg 27.0-32.0 [facility] 12.7 % 11.6-14.6 [facility] 39.4 fl 35.1-43.9 [facility] 0.300 % 0.0-0.9 [facility] 0 % 0-5 [facility] 86 mL/min >60 [facility] 105 mL/min >60 [facility] 91.88 ml/min [facility] 13.7 RATIO 10-20 [facility] 3.7 g/dL 2.2-4.2 [facility] 30 U/L 13-75 [facility] 74 U/L 45-117 [facility] 25 U/L 13-56 [facility] 30.0 mmol/L 21.0-32.0 [facility] Platelets bldOrdered By: Emily Padilla on 11-19-2022 Platelets (Bld) [#/Vol] 194 10*3/uL 150-450 [facility] Serum or plasma albumin mg urement (mass/volume)Ordered By: Jesi Padilla on 11-19-2022 Albumin [Mass/Vol] 3.7 g/dL 3.2-5.0 [facility] Serum or plasma albumin/glob ulin mass ratioOrdered By: Jesi Padilla on 11-19-2022 Albumin/Globulin [Mass ratio] 1.0 {ratio} 0.9-2.4 [facility] Serum or plasma calcium mg urement (mass/volume)Ordered By: Jesi Padilla on 11-19-2022 Calcium [Mass/Vol] 9.2 mg/dL 8.5-10.1 [facility] Serum or plasma creatinine m easurement (mass/volume)Ordered By: Jesi Padilla on 11-19-2022 Creatinine [Mass/Vol] 0.80 mg/dL 0.55-1.02 [facility] Comment on above: The validity of the calculated GFR & GFRAA in patients over 70 years has not been determined. Clinical correlation is essential. Serum or plasma urea nitroge n measurement (mass/volume)Ordered By: Jesi Padilla on 11-19-2022 Urea nitrogen [Mass/Vol] 11 mg/dL 7-18 [facility] [facility] Th[facility] Papanicolaou smear with manual screeningOrdered By: Jesi Padilla on 11-19-2022 Thin prep Papanicolaou smear with manual screening 15 U/L 15-37 [facility] Thin prep Papanicolaou smear with manual screening 3 5-15 [facility] CNOVSPon 11-16-2022 CNOVSP Visit (SP) Office (DEA) LANA RIVERA ([id number]) 1985 F Date Time Provider Department 11/16/22 [...] years as her is s/p vasectomy. 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 Garcia and Dr. Moore The [...] bleeding, vaginal discharge and vaginal pain. 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 Normal [facility] Trung 11-10-2022 CNPN Telephone (AGGSACHI B) LANA RIVERA ([id number]) 1985 F Date Time Provider Department 11/10/22 [...] Encounter Status:Closed by AZRA WEAVER on 11/10/22 [facility] Absolute lymphocyte countOrd ered By: Dr. Luis on 11-08-2022 Lymphocytes Auto (Unsp spec) [#/Vol] 1.54 10*3/uL 0.83-4.51 [facility] Basophil percentageOrdered B y: Dr. Luis on 11-08-2022 Basophil percentage 0 SEEN /hpf 0-5 [facility] Basophil percentage 84 mg/dL 74-106 [facility] Basophil percentage 7.6 g/dL 6.4-8.2 [facility] Basophil percentage 0.20 mg/dL 0.20-1.00 [facility] Basophil percentage 137 mmol/L 136-145 [facility] Basophil percentage 3.2 mmol/L 3.5-5.1 [facility] Basophil percentage 105 mmol/L 98-107 [facility] Basophils (Bld) [#/Vol] 5.7 10*3/uL 4.4-11.0 [facility] Basophils (Bld) [#/Vol] 3.2 10*3/uL 2.0-7.7 [facility] Basophils/100 WBC (Bld) 56.0 % 47-70 [facility] Basophils/100 WBC (Bld) 4.6 % 0-5 [facility] Basophils/100 WBC (Bld) 0.7 % 0-1 [facility] Basophil percentageOrdered B y: Dimple Luis on 11-08-2022 Bilirubin [Mass/Vol] 0.20 mg/dL 0.20-1.00 [facility] Comment on above: For patients on eltr ombopag therapy, use of Dimension Pruden TBIL is not recommended. Chloride [Moles/Vol] 105 mmol/L 98-107 [facility] Eosinophils/100 WBC (Bld) 4.6 % 0-5 [facility] Glucose [Mass/Vol] 84 mg/dL 74-106 [facility] Neutrophils (Bld) [#/Vol] 3.2 10*3/uL 2.0-7.7 [facility] Neutrophils/100 WBC (Bld) 56.0 % 47-70 [facility] Potassium [Moles/Vol] 3.2 mmol/L 3.5-5.1 [facility] Protein [Mass/Vol] 7.6 g/dL 6.4-8.2 [facility] Sodium [Moles/Vol] 137 mmol/L 136-145 [facility] WBC (Bld) [#/Vol] 5.7 10*3/uL 4.4-11.0 [facility] Bilirubin Test strip Ql (U)O rdered By: Dr. Luis on 11-08-2022 Bilirubin Ql (U) Negative Negative [facility] Blood erythrocytes count (nu mber/volume)Ordered By: Dr. Luis on 11-08-2022 RBC (Bld) [#/Vol] 5.01 10*6/uL 4.2-5.4 [facility] Blood hemoglobin measurement (mass/volume)Ordered By: Dr. Luis on 11-08-2022 Hemoglobin (Bld) [Mass/Vol] 13.7 g/dL 12.0-15.0 [facility] Blood lymphocytes/100 leukoc ytesOrdered By: Dr. Luis on 11-08-2022 Lymphocytes/100 WBC (Bld) 27.2 % 19-41 [facility] Blood monocytes/100 leukocyt esOrdered By: Dr[address] Luis on 11-08-2022 Monocytes/100 WBC (Bld) 11.3 % 0-10 [facility] Blood platelet mean volumeOr dered By: Dr. Luis on 11-08-2022 Platelet mean volume (Bld) [Entitic vol] 11.3 fL 6.2-12.0 [facility] Determination of erythrocyte mean corpuscular volume (MCV)Ordered By: Dr. Luis on 11-08-2022 MCV (RBC) [Entitic vol] 85.2 fL 81-99 [facility] Direct bilirubinOrdered By: Dr. Luis on 11-08-2022 Bilirubin.direct [Mass/Vol] 0.07 mg/dL 0.00-0.30 [facility] Hematocrit Auto (Bld) [Volum e fraction]Ordered By: Dr. Luis on 11-08-2022 Hematocrit (Bld) [Volume fraction] 42.7 % 37-47 [facility] Ketones Test strip Ql (U)Ord ered By: Dr. Luis on 11-08-2022 Ketones Ql (U) Negative Negative [facility] Laboratory - Chemistry and C hemistry - challengeOrdered By: Dimple Luis on 11-08-2022 ALP [Catalytic activity/Vol] 72 U/L 45-117 [facility] ALT [Catalytic activity/Vol] 20 U/L 13-56 [facility] CO2 [Moles/Vol] 27.0 mmol/L 21.0-32.0 [facility] Globulin (S) [Mass/Vol] 3.8 g/dL 2.2-4.2 [facility] Lipase [Catalytic activity/Vol] 46 U/L 13-75 [facility] Comment on above: Please note:LIPASE r evised reference range effective 22. New Lipase methodology. Expected to produce lower values than the previous assay method. NEW Reference Range: 13 - 75 U/L Urea nitrogen/Creatinine [Mass ratio] 14.6 mg/mg 10-20 [facility] Laboratory - Hematology and Cell countsOrdered By: Dimple Luis on 11-08-2022 Erythrocyte distribution width (RBC) [Entitic vol] 39.6 fL 35.1-43.9 [facility] Erythrocyte distribution width (RBC) [Ratio] 12.9 % 11.6-14.6 [facility] Immature granulocytes/100 WBC (Bld) 0.200 % 0.0-0.9 [facility] Comment on above: IG% - Immature Granu locytes (promyelocytes, myelocytes and metamyelocytes) > 1% indicates that a LEFT SHIFT is Present. MCH (RBC) [Entitic mass] 27.3 pg 27.0-32.0 [facility] Nucleated RBC/100 WBC (Bld) [Ratio] 0 % 0-5 [facility] MCHC Auto (RBC) [Mass/Vol]Or dered By: Dr. Luis on 11-08-2022 MCHC (RBC) [Mass/Vol] 32.1 g/dL 32-36 [facility] Mucus LM Ql (Urine sed)Order ed By: Dr. Luis on 11-08-2022 Mucus Ql (Urine sed) 0 SEEN /hpf [facility] Nitrite Test strip Ql (U)Ord ered By: Dr. Luis on 11-08-2022 Nitrite Ql (U) Negative Negative [facility] No Panel InformationOrdered By: Dimple Luis on 11-08-2022 Estimated Creatinine Clearance Calc 98.01 ml/min [facility] Estimated GFR (MDRD) Amer 112 mL/min >60 [facility] Comment on above: GFR Calc Estimated GFR (MDRD) Non-Af Amer 93 mL/min >60 [facility] Comment on above: Non- GFR Calc No Panel InformationOrdered By: Dr. Lusi on 11-08-2022 27.3 pg 27.0-32.0 [facility] 12.9 % 11.6-14.6 [facility] 39.6 fl 35.1-43.9 [facility] 0.200 % 0.0-0.9 [facility] 0 % 0-5 [facility] 93 mL/min >60 [facility] 112 mL/min >60 [facility] 98.01 ml/min [facility] 14.6 RATIO 10-20 [facility] 3.8 g/dL 2.2-4.2 [facility] 46 U/L 13-75 [facility] 72 U/L 45-117 [facility] 20 U/L 13-56 [facility] 27.0 mmol/L 21.0-32.0 [facility] Platelets bldOrdered By: Dr. Luis on 11-08-2022 Platelets (Bld) [#/Vol] 189 10*3/uL 150-450 [facility] Protein Test strip Ql (U)Ord ered By: Dr. Luis on 11-08-2022 Protein Ql (U) Negative Negative [facility] Serum or plasma albumin mg urement (mass/volume)Ordered By: Dr. Luis on 11-08-2022 Albumin [Mass/Vol] 3.8 g/dL 3.2-5.0 [facility] Serum or plasma calcium mg urement (mass/volume)Ordered By: Dr. Luis on 11-08-2022 Calcium [Mass/Vol] 9.3 mg/dL 8.5-10.1 [facility] Serum or plasma creatinine m easurement (mass/volume)Ordered By: Dr. Luis on 11-08-2022 Creatinine [Mass/Vol] 0.75 mg/dL 0.55-1.02 [facility] Comment on above: The validity of the calculated GFR & GFRAA in patients over 70 years has not been determined. Clinical correlation is essential. Serum or plasma urea nitroge n measurement (mass/volume)Ordered By: Dr. Luis on 11-08-2022 Urea nitrogen [Mass/Vol] 11 mg/dL 7-18 [facility] Squamous epithelial cells de tection in urine sediment by light microscopyOrdered By: Dr. Luis on 11-08-2022 Epithelial cells.squamous LM Ql (Urine sed) 0-5 SEEN /hpf 5-10 [facility] Thin prep Papanicolaou smear with manual screeningOrdered By: Dr. Luis on 11-08-2022 Thin prep Papanicolaou smear with manual screening 10 U/L 15-37 [facility] Thin prep Papanicolaou smear with manual screening 5 5-15 [facility] Urine blood detectionOrdered By: Dr. Luis on 11-08-2022 RBC Ql (U) Negative Negative [facility] RBC Ql (U) 0 SEEN /hpf 0-5 [facility] Urine clarityOrdered By: Dr. Luis on 11-08-2022 Clarity (U) Clear Clear [facility] Urine color determinationOrd ered By: Dr. Lusi on 11-08-2022 Color (U) Yellow Yellow [facility] Urine glucose detectionOrder ed By: Dr. Luis on 11-08-2022 Glucose Ql (U) Normal mg/dl Normal [facility] Urine leukocyte esterase det ection by dipstickOrdered By: Dr. Luis on 11-08-2022 Leukocyte esterase Test strip Ql (U) Negative Negative [facility] Urine pHOrdered By: Dr. John apodaca on 11-08-2022 pH (U) 6.5 [pH] 5.0 - 8.0 [facility] Urine sediment bacteria coun t by microscopy (number/high power field)Ordered By: Dr. Luis on 11-08-2022 Bacteria LM.HPF (Urine sed) [#/Area] RARE /hpf None Seen [facility] Urine specific gravity measu rementOrdered By: Dr. Luis on 11-08-2022 Specific gravity (U) [Rel density] 1.015 1.002-1.030 [facility] Urobilinogen Auto test strip Ql (U)Ordered By: Dr. Luis on 11-08-2022 Urobilinogen Ql (U) Normal mg/dl Normal [facility] .Auto Diffon 10-11-2022 Basophil, Absolute 0.0 10 3/mcL Normal 0.0-0.2 [facility] ([place]) Comment on above: Performed By: #### A DIFFMARIBEL MDW, LIP, CBC, ANEU, GFR #### [address] [address] Basophils/100 WBC (Bld) 0.9 % Normal 0.0-2.5 [facility] ([place]) Comment on above: Performed By: #### A DIFFMARIBEL MDW, LIP, CBC, ANEU, GFR #### [address] [address] Eosinophil, Absolute 0.3 10 3/mcL Normal 0.0-0.4 [facility] ([place]) Comment on above: Performed By: #### A DIFF, MD MARIBELW, LIP, CBC, ANEU, GFR #### [address] [address] Eosinophils/100 WBC (Bld) 5.3 % Normal 0.0-7.0 [facility] ([place]) Comment on above: Performed By: #### A DIFF, CMP, MDW, LIP, CBC, ANEU, GFR #### [address] [address] Lymphocyte, Absolute 1.7 10 3/mcL Normal 0.8-3.9 [facility] ([place]) Comment on above: Performed By: #### A DIFF, CMP, MDW, LIP, CBC, ANEU, GFR #### [address] [address] Lymphocytes/100 WBC (Bld) 33.5 % Normal 10.0-50.0 [facility] ([place]) Comment on above: Performed By: #### A DIFF, CMP, MDW, LIP, CBC, ANEU, GFR #### [address] [address] Monocyte, Absolute 0.5 10 3/mcL Normal 0.2-1.0 [facility] ([place]) Comment on above: Performed By: #### A DIFF, CMP, MDW, LIP, CBC, ANEU, GFR #### [address] [address] Monocytes/100 WBC (Bld) 10.0 % Normal 1.7-13.0 [facility] ([place]) Comment on above: Performed By: #### A DIFF, CMP, MDW, LIP, CBC, ANEU, GFR #### [address] [address] Neutrophils/100 WBC (Bld) 50.3 % Normal 37.0-80.0 [facility] ([place]) Comment on above: Performed By: #### A DIFF, CMP, MDW, LIP, CBC, ANEU, GFR #### [address] [address] .GFRon 10-11-2022 GFR 102 ml/min/1.73sqm Normal [facility] ([place]) Comment on above: Result Comment: GFR Population [...] CMP, MDW, LIP, CBC, ANEU, GFR #### [address] [address] GFR Non- 84 ml/min/1.73sqm Normal [facility] ([place]) Comment on above: Result Comment: GFR Population [...] CMP, MDW, LIP, CBC, ANEU, GFR #### [address] [address] .MDWon 10-11-2022 Monocyte Distribution Width 17.66 Normal 0.00-20.00 [facility] ([place]) Comment on above: Result Comment: For ED adult patients suspected of sepsis, MDW<=20.0 does not rule out sepsis or risk of sepsis Performed By: #### A DIFF, CMP, MDW, LIP, CBC, ANEU, GFR #### [address] [address] .NEUABSon 10-11-2022 Neutrophil, Absolute 2.6 10 3/mcL Low 2.9-6.2 [facility] ([place]) Comment on above: Performed By: #### A DIFF, CMP, MDW, LIP, CBC, ANEU, GFR #### [place] [id number] CBCon 10-11-2022 Erythrocyte distribution width (RBC) [Ratio] 13.5 % Normal 11.5-14.5 [facility] ([place]) Comment on above: Performed By: #### A DIFF, CMP, MDW, LIP, CBC, ANEU, GFR #### [place] [address] Hematocrit (Bld) [Volume fraction] 40.8 % Normal 37.0-47.0 [facility] ([place]) Comment on above: Performed By: #### A DIFF, CMP, MDW, LIP, CBC, ANEU, GFR #### [place] [address] Hgb 13.7 G/dL Normal 12.0-16.0 [facility] ([place]) Comment on above: Performed By: #### A DIFF, CMP, MDW, LIP, CBC, ANEU, GFR #### [place] [id number] MCH (RBC) [Entitic mass] 28.0 pg Normal 27.0-31.2 [facility] ([place]) Comment on above: Performed By: #### A DIFF, CMP, MDW, LIP, CBC, ANEU, GFR #### [place] [address] MCHC 33.6 G/dL Normal 33.0-37.0 [facility] ([place]) Comment on above: Performed By: #### A DIFF, CMP, MDW, LIP, CBC, ANEU, GFR #### [place] [id number] MCV (RBC) [Entitic vol] 83.2 fL Normal 80.0-94.0 [facility] ([place]) Comment on above: Performed By: #### A DIFF, CMP, MDW, LIP, CBC, ANEU, GFR #### [place] [id number] Platelet 171 10 3/mcL Normal 130-400 [facility] ([place]) Comment on above: Performed By: #### A DIFF, CMP, MDW, LIP, CBC, ANEU, GFR #### [address] [address] Platelet mean volume (Bld) [Entitic vol] 9.2 fL Normal 7.4-10.4 [facility] ([place]) Comment on above: Performed By: #### A DIFF, CMP, MDW, LIP, CBC, ANEU, GFR #### [address] [address] RBC 4.91 10 6/mcL Normal 4.20-5.40 [facility] ([place]) Comment on above: Performed By: #### A DIFF, CMP, MDW, LIP, CBC, ANEU, GFR #### [address] [address] WBC 5.2 10 3/mcL Normal 4.6-10.8 [facility] ([place]) Comment on above: Performed By: #### A DIFF, CMP, MDW, LIP, CBC, ANEU, GFR #### [address] [address] CMPon 10-11-2022 Albumin Level 3.9 G/dL Normal 3.5-5.0 [facility] ([place]) Comment on above: Performed By: #### A DIFF, CMP, MDW, LIP, CBC, ANEU, GFR #### [address] [address] Albumin/Globulin [Mass ratio] 1.3 {ratio} Normal 1.1-2.5 [facility] ([place]) Comment on above: Performed By: #### A DIFF, CMP, MDW, LIP, CBC, ANEU, GFR #### [address] [address] ALP [Catalytic activity/Vol] 78 U/L Normal 40-135 [facility] ([place]) Comment on above: Performed By: #### A DIFF, CMP, MDW, LIP, CBC, ANEU, GFR #### [address] [address] ALT [Catalytic activity/Vol] 17 U/L Normal 14-59 [facility] ([place]) Comment on above: Performed By: #### A DIFF, MARIBEL, W, LIP, CBC, ANEU, GFR #### [address] [address] AST [Catalytic activity/Vol] 11 U/L Normal 10-40 [facility] ([place] Comment on above: Performed By: #### A DIFF, MARIBEL, MDW, LIP, CBC, ANEU, GFR #### [address] [address] Bili Total 0.2 mg/dL Normal 0.2-1.0 [facility] ([place]) Comment on above: Result Comment: Use of this assay is not recommended for patients undergoing treatment with eltrombopag due to the potential for falsely elevated results. Performed By: #### A DIFF, MARIBEL, LORI, LIP, CBC, ANEU, GFR #### [address] [address] BUN/Creatinine Ratio 12 ratio Normal 7-27 [facility] ([place]) Comment on above: Performed By: #### A DIFF, MARIBEL, LORI, LIP, CBC, ANEU, GFR #### [address] [address] Calcium [Mass/Vol] 8.7 mg/dL Normal 8.4-10.2 [facility] ([place]) Comment on above: Performed By: #### A DIFF, MARIBEL, W, LIP, CBC, ANEU, GFR #### [address] [address] Chloride [Moles/Vol] 104 mmol/L Normal 98-107 [facility] ([place]) Comment on above: Performed By: #### A DIFF, MARIBEL, W, LIP, CBC, ANEU, GFR #### [address] [address] CO2 [Moles/Vol] 28 mmol/L Normal 22-29 [facility] ([place]) Comment on above: Performed By: #### A DIFF, MARIBEL, MDW, LIP, CBC, ANEU, GFR #### [address] [address] Creatinine [Mass/Vol] 0.78 mg/dL Normal 0.55-1.02 [facility] ([place]) Comment on above: Performed By: #### A DIFF, CMP, MDW, LIP, CBC, ANEU, GFR #### [address] [address] Electrolyte Balance 8.0 mEq/L Normal 4.0-15.0 [facility] ([place] Comment on above: Performed By: #### A DIFF, CMP, MDW, LIP, CBC, ANEU, GFR #### [address] [address] Globulin 3.0 G/dL Normal [facility] ([place]) Comment on above: Performed By: #### A DIFF, CMP, MDW, LIP, CBC, ANEU, GFR #### [address] [address] Glucose [Mass/Vol] 106 mg/dL High 70-105 [facility] ([place]) Comment on above: Performed By: #### A DIFF, CMP, MDW, LIP, CBC, ANEU, GFR #### [address] [address] Potassium [Moles/Vol] 3.5 mmol/L Normal 3.5-5.1 [facility] ([place]) Comment on above: Performed By: #### A DIFF, CMP, MDW, LIP, CBC, ANEU, GFR #### [address] [address] Sodium [Moles/Vol] 140 mmol/L Normal 136-145 [facility] ([place]) Comment on above: Performed By: #### A DIFF, CMP, MDW, LIP, CBC, ANEU, GFR #### [address] [address] Total Protein 6.9 G/dL Normal 6.4-8.2 [facility] ([place]) Comment on above: Performed By: #### A DIFF, CMP, MDW, LIP, CBC, ANEU, GFR #### [facility] [address] [place], [place] [address] Urea nitrogen [Mass/Vol] 9 mg/dL Normal 7-18 [facility] ([place]) Comment on above: Performed By: #### A DIFF, CMP, MDW, LIP, CBC, ANEU, GFR #### [facility] [address] [place], [place] [address] CT ABD/PELVIS W/ IV CONTRAST ONLYon 10-11-2022 [...] 9:56:00 PM Ordering Provider: BALDO FENG Normal [facility] ([place]) LIPon 10-11-2022 Lipase Level 42 U/L Normal 16-77 [facility] ([place]) Comment on above: Performed By: #### A DIFF, CMP, MDW, LIP, CBC, ANEU, GFR #### [address] [address] UAon 10-11-2022 Color (U) Yellow Normal [facility] ([place]) Comment on above: Performed By: #### U A #### [address] [address] Glucose (U) [Mass/Vol] 100 mg/dL Abnormal Negative [facility] ([place]) Comment on above: Performed By: #### U A #### [address] [address] Ketones Ql (U) Negative Normal Negative [facility] ([place]) Comment on above: Performed By: #### U A #### [address] [address] UA Appear Clear Normal Clear [facility] ([place]) Comment on above: Performed By: #### U A #### [address] [address] UA Blood Negative Normal Negative [facility] ([place]) Comment on above: Performed By: #### U A #### [address] [address] UA Leuk Est Negative Normal Negative [facility] ([place]) Comment on above: Performed By: #### U A #### [address] [address] UA Nitrite Negative Normal Negative [facility] ([place]) Comment on above: Performed By: #### U A #### [address] [address] UA pH 7.0 Normal 5.0 - 8.0 [facility] ([place]) Comment on above: Performed By: #### U A #### [address] [place] [address] UA Protein Negative Normal Negative [facility] ([place]) Comment on above: Performed By: #### U A #### [place] [id number] [place], [place] [address] UA Spec Grav 1.025 Normal 1.015-1.025 [facility] ([place]) Comment on above: Performed By: #### U A #### [address] [address] UA Specimen Type Clean Catch Normal [facility] ([place]) Comment on above: Performed By: #### U A #### [address] [address] UA Urobilinogen 0.2 E.U./dL Normal 0.2-1.0 [facility] ([place]) Comment on above: Performed By: #### U A #### [address] [address] Urobilinogen (U) [Mass/Vol] Negative Normal Negative [facility] ([place]) Comment on above: Performed By: #### U A #### [address] [address] Basophil percentageOrdered B y: Dr. Luis on 08-26-2022 Basophil percentage 104 mg/dL 74-106 [facility] Basophil percentage 139 mmol/L 136-145 [facility] Basophil percentage 3.7 mmol/L 3.5-5.1 [facility] Basophil percentage 106 mmol/L 98-107 [facility] Basophil percentageOrdered B y: Dimple Luis on 08-26-2022 Chloride [Moles/Vol] 106 mmol/L 98-107 [facility] Glucose [Mass/Vol] 104 mg/dL 74-106 [facility] Comment on above: Fasting Glucose resu lt from 100 to 125 mg/dL suggests IMPAIRED HOMEOSTASIS per A.D.A. criteria. Potassium [Moles/Vol] 3.7 mmol/L 3.5-5.1 [facility] Sodium [Moles/Vol] 139 mmol/L 136-145 [facility] Laboratory - Chemistry and C hemistry - challengeOrdered By: Dimple Luis on 08-26-2022 CO2 [Moles/Vol] 27.0 mmol/L 21.0-32.0 [facility] Urea nitrogen/Creatinine [Mass ratio] 9.2 mg/mg 10-20 [facility] No Panel InformationOrdered By: Dimple Luis on 08-26-2022 Estimated Creatinine Clearance Calc 96.72 ml/min [facility] Estimated GFR (MDRD) Amer 111 mL/min >60 [facility] Comment on above: GFR Calc Estimated GFR (MDRD) Non-Af Amer 92 mL/min >60 [facility] Comment on above: Non- GFR Calc No Panel InformationOrdered By: Dr. Luis on 08-26-2022 92 mL/min >60 [facility] 111 mL/min >60 [facility] 96.72 ml/min [facility] 9.2 RATIO 10-20 [facility] 27.0 mmol/L 21.0-32.0 [facility] Serum or plasma calcium gm urement (mass/volume)Ordered By: Dr. Luis on 08-26-2022 Calcium [Mass/Vol] 8.6 mg/dL 8.5-10.1 [facility] Serum or plasma creatinine m easurement (mass/volume)Ordered By: Dr. Luis on 08-26-2022 Creatinine [Mass/Vol] 0.76 mg/dL 0.55-1.02 [facility] Comment on above: The validity of the calculated GFR & GFRAA in patients over 70 years has not been determined. Clinical correlation is essential. Serum or plasma urea nitroge n measurement (mass/volume)Ordered By: Dr. Luis on 08-26-2022 Urea nitrogen [Mass/Vol] 7 mg/dL 7-18 [facility] Thin prep Papanicolaou smear with manual screeningOrdered By: Dr. Luis on 08-26-2022 Thin prep Papanicolaou smear with manual screening 6 5-15 [facility] Absolute lymphocyte countOrd ered By: Dr. Luis on 08-17-2022 Lymphocytes Auto (Unsp spec) [#/Vol] 1.31 10*3/uL 0.83-4.51 [facility] Basophil percentageOrdered B y: Dr. Luis on 08-17-2022 Basophil percentage 128 mg/dL 74-106 [facility] Basophil percentage 138 mmol/L 136-145 [facility] Basophil percentage 3.9 mmol/L 3.5-5.1 [facility] Basophil percentage 106 mmol/L 98-107 [facility] Basophils (Bld) [#/Vol] 5.2 10*3/uL 4.4-11.0 [facility] Basophils (Bld) [#/Vol] 3.2 10*3/uL 2.0-7.7 [facility] Basophils/100 WBC (Bld) 62.1 % 47-70 [facility] Basophils/100 WBC (Bld) 4.0 % 0-5 [facility] Basophils/100 WBC (Bld) 0.4 % 0-1 [facility] Basophil percentageOrdered B y: Dimple Luis on 08-17-2022 Chloride [Moles/Vol] 106 mmol/L 98-107 [facility] Eosinophils/100 WBC (Bld) 4.0 % 0-5 [facility] Glucose [Mass/Vol] 128 mg/dL 74-106 [facility] Comment on above: Fasting Glucose resu lt greater than or equal to 126 mg/dL suggests DIABETES MELLITUS per A.D.A. criteria. Neutrophils (Bld) [#/Vol] 3.2 10*3/uL 2.0-7.7 [facility] Neutrophils/100 WBC (Bld) 62.1 % 47-70 [facility] Potassium [Moles/Vol] 3.9 mmol/L 3.5-5.1 [facility] Sodium [Moles/Vol] 138 mmol/L 136-145 [facility] WBC (Bld) [#/Vol] 5.2 10*3/uL 4.4-11.0 [facility] Beta hCG serum qualOrdered B y: Dr. Luis on 08-17-2022 Beta HCG ( test) Ql Negative [facility] Blood erythrocytes count (nu mber/volume)Ordered By: Dr. Luis on 08-17-2022 RBC (Bld) [#/Vol] 5.00 10*6/uL 4.2-5.4 [facility] Blood hemoglobin measurement (mass/volume)Ordered By: Dr. Luis on 08-17-2022 Hemoglobin (Bld) [Mass/Vol] 13.8 g/dL 12.0-15.0 [facility] Blood lymphocytes/100 leukoc ytesOrdered By: Dr. Luis on 08-17-2022 Lymphocytes/100 WBC (Bld) 25.2 % 19-41 [facility] Blood monocytes/100 leukocyt esOrdered By: [address]. Luis on 08-17-2022 Monocytes/100 WBC (Bld) 7.9 % 0-10 [facility] Blood platelet mean volumeOr dered By: Dr. Luis on 08-17-2022 Platelet mean volume (Bld) [Entitic vol] 10.8 fL 6.2-12.0 [facility] Determination of erythrocyte mean corpuscular volume (MCV)Ordered By: Dr. Luis on 08-17-2022 MCV (RBC) [Entitic vol] 85.4 fL 81-99 [facility] Hematocrit Auto (Bld) [Volum e fraction]Ordered By: Dr. Luis on 08-17-2022 Hematocrit (Bld) [Volume fraction] 42.7 % 37-47 [facility] - Chemistry and C hemistry - challengeOrdered By: Dimple Luis on 08-17-2022 CO2 [Moles/Vol] 27.0 mmol/L 21.0-32.0 [facility] Urea nitrogen/Creatinine [Mass ratio] 13.4 mg/mg 10-20 [facility] - Hematology and Cell countsOrdered By: Dimple Luis on 08-17-2022 Erythrocyte distribution width (RBC) [Entitic vol] 39.5 fL 35.1-43.9 [facility] Erythrocyte distribution width (RBC) [Ratio] 12.8 % 11.6-14.6 [facility] Immature granulocytes/100 WBC (Bld) 0.400 % 0.0-0.9 [facility] Comment on above: IG% - Immature Granu locytes (promyelocytes, myelocytes and metamyelocytes) > 1% indicates that a LEFT SHIFT is Present. MCH (RBC) [Entitic mass] 27.6 pg 27.0-32.0 [facility] Nucleated RBC/100 WBC (Bld) [Ratio] 0 % 0-5 [facility] Auto (RBC) [Mass/Vol]Or dered By: Dr. Luis on 08-17-2022 MCHC (RBC) [Mass/Vol] 32.3 g/dL 32-36 [facility] No Panel InformationOrdered By: Dimple Luis on 08-17-2022 Estimated Creatinine Clearance Calc 109.71 ml/min [facility] Estimated GFR (MDRD) Amer 128 mL/min >60 [facility] Comment on above: GFR Calc Estimated GFR (MDRD) Non-Af Amer 106 mL/min >60 [facility] Comment on above: Non- GFR Calc Troponin I High Sensitivity 3 pg/mL 3.0-54.0 [facility] Comment on above: Please Note: New Chantal t Units and Gender Specific Reference Ranges. For more information see Policy Stat Procedure [place] High Sensitivity Troponin (TNIH) and attachments. No Panel InformationOrdered By: Dr. Luis on 08-17-2022 27.6 pg 27.0-32.0 [facility] 12.8 % 11.6-14.6 [facility] 39.5 fl 35.1-43.9 [facility] 0.400 % 0.0-0.9 [facility] 0 % 0-5 [facility] 106 mL/min >60 [facility] 128 mL/min >60 [facility] 109.71 ml/min [facility] 13.4 RATIO 10-20 [facility] 3 pg/mL 3.0-54.0 [facility] 27.0 mmol/L 21.0-32.0 [facility] Platelets bldOrdered By: Dr. Luis on 08-17-2022 Platelets (Bld) [#/Vol] 175 10*3/uL 150-450 [facility] Serum or plasma calcium mg urement (mass/volume)Ordered By: Dr. Luis on 08-17-2022 Calcium [Mass/Vol] 8.7 mg/dL 8.5-10.1 [facility] Serum or plasma creatinine m easurement (mass/volume)Ordered By: Dr. Luis on 08-17-2022 Creatinine [Mass/Vol] 0.67 mg/dL 0.55-1.02 [facility] Comment on above: The validity of the calculated GFR & GFRAA in patients over 70 years has not been determined. Clinical correlation is essential. Serum or plasma urea nitroge n measurement (mass/volume)Ordered By: Dr. Luis on 08-17-2022 Urea nitrogen [Mass/Vol] 9 mg/dL 7-18 [facility] Thin prep Papanicolaou smear with manual screeningOrdered By: Dr. Luis on 08-17-2022 Thin prep Papanicolaou smear with manual screening 5 5-15 [facility] Absolute lymphocyte countOrd ered By: Royce Bangura on 07-17-2022 Lymphocytes Auto (Unsp spec) [#/Vol] 1.50 10*3/uL 0.83-4.51 [facility] Basophil percentageOrdered B y: Royce Bangura on 07-17-2022 Basophil percentage 123 mg/dL 74-106 [facility] Basophil percentage 6.8 g/dL 6.4-8.2 [facility] Basophil percentage 0.40 mg/dL 0.20-1.00 [facility] Basophil percentage 140 mmol/L 136-145 [facility] Basophil percentage 3.4 mmol/L 3.5-5.1 [facility] Basophil percentage 104 mmol/L 98-107 [facility] Basophils (Bld) [#/Vol] 4.1 10*3/uL 4.4-11.0 [facility] Basophils (Bld) [#/Vol] 2.1 10*3/uL 2.0-7.7 [facility] Basophils/100 WBC (Bld) 50.5 % 47-70 [facility] Basophils/100 WBC (Bld) 3.2 % 0-5 [facility] Basophils/100 WBC (Bld) 0.7 % 0-1 [facility] Blood erythrocytes count (nu mber/volume)Ordered By: Royce Bangura on 07-17-2022 RBC (Bld) [#/Vol] 4.75 10*6/uL 4.2-5.4 [facility] Blood hemoglobin measurement (mass/volume)Ordered By: Royce Bangura on 07-17-2022 Hemoglobin (Bld) [Mass/Vol] 13.1 g/dL 12.0-15.0 [facility] Blood lymphocytes/100 leukoc ytesOrdered By: Royce Bangura on 07-17-2022 Lymphocytes/100 WBC (Bld) 36.8 % 19-41 [facility] Blood monocytes/100 leukocyt esOrdered By: Royce Bangura on 07-17-2022 Monocytes/100 WBC (Bld) 8.6 % 0-10 [facility] Blood platelet mean volumeOr dered By: Royce Bangura on 07-17-2022 Platelet mean volume (Bld) [Entitic vol] 11.2 fL 6.2-12.0 [facility] Determination of erythrocyte mean corpuscular volume (MCV)Ordered By: Royce Bangura on 07-17-2022 MCV (RBC) [Entitic vol] 86.3 fL 81-99 [facility] Hematocrit Auto (Bld) [Volum e fraction]Ordered By: Royce Bangura on 07-17-2022 Hematocrit (Bld) [Volume fraction] 41.0 % 37-47 [facility] MCHC Auto (RBC) [Mass/Vol]Or dered By: Royce Bangura on 07-17-2022 MCHC (RBC) [Mass/Vol] 32.0 g/dL 32-36 [facility] No Panel InformationOrdered By: Royce Bangura on 07-17-2022 27.6 pg 27.0-32.0 [facility] 13.9 % 11.6-14.6 [facility] 43.2 fl 35.1-43.9 [facility] 0.200 % 0.0-0.9 [facility] 0 % 0-5 [facility] 94 mL/min >60 [facility] 113 mL/min >60 [facility] 98.01 ml/min [facility] 9.3 RATIO 10-20 [facility] 3.2 g/dL 2.2-4.2 [facility] 120 U/L 73-393 [facility] < 3 pg/mL 3.0-54.0 [facility] 60 U/L 45-117 [facility] 24 U/L 13-56 [facility] 29.0 mmol/L 21.0-32.0 [facility] 1.37 uIU/mL 0.358-3.74 [facility] Platelets bldOrdered By: Lita Bangura on 07-17-2022 Platelets (Bld) [#/Vol] 160 10*3/uL 150-450 [facility] Serum or plasma albumin mg urement (mass/volume)Ordered By: Royce Bangura on 07-17-2022 Albumin [Mass/Vol] 3.6 g/dL 3.2-5.0 [facility] Serum or plasma albumin/glob ulin mass ratioOrdered By: Royce Bangura on 07-17-2022 Albumin/Globulin [Mass ratio] 1.1 {ratio} 0.9-2.4 [facility] Serum or plasma calcium mg urement (mass/volume)Ordered By: Royce Bangura on 07-17-2022 Calcium [Mass/Vol] 9.1 mg/dL 8.5-10.1 [facility] Serum or plasma creatinine m easurement (mass/volume)Ordered By: Royce Bangura on 07-17-2022 Creatinine [Mass/Vol] 0.75 mg/dL 0.55-1.02 [facility] Serum or plasma urea nitroge n measurement (mass/volume)Ordered By: Royce Bangura on 07-17-2022 Urea nitrogen [Mass/Vol] 7 mg/dL 7-18 [facility] Thin prep Papanicolaou smear with manual screeningOrdered By: Royce Bangura on 07-17-2022 Thin prep Papanicolaou smear with manual screening 10 U/L 15-37 [facility] Thin prep Papanicolaou smear with manual screening 7 5-15 [facility] Absolute lymphocyte countOrd ered By: Rea Poon on 07-14-2022 Lymphocytes Auto (Unsp spec) [#/Vol] 1.51 10*3/uL 0.83-4.51 [facility] Atypical perinuclear antineu trophil cytoplasmic antibodies measurementOrdered By: Rea Poon on 07-14-2022 Neutrophil cytoplasmic Ab.perinuclear.atypical IF (S) [Titer] <1:20 titer Neg:<1:20 [facility] Basophil percentageOrdered B y: Rea Poon on 07-14-2022 Basophil percentage 118 mg/dL 74-106 [facility] Basophil percentage 7.2 g/dL 6.4-8.2 [facility] Basophil percentage 0.40 mg/dL 0.20-1.00 [facility] Basophil percentage 138 mmol/L 136-145 [facility] Basophil percentage 3.4 mmol/L 3.5-5.1 [facility] Basophil percentage 103 mmol/L 98-107 [facility] Basophil percentage < 0.2 AI 0.0-0.9 [facility] Basophils (Bld) [#/Vol] 6.2 10*3/uL 4.4-11.0 [facility] Basophils (Bld) [#/Vol] 3.9 10*3/uL 2.0-7.7 [facility] Basophils/100 WBC (Bld) 63.9 % 47-70 [facility] Basophils/100 WBC (Bld) 2.9 % 0-5 [facility] Basophils/100 WBC (Bld) 0.5 % 0-1 [facility] Blood erythrocytes count (nu mber/volume)Ordered By: Rea Poon on 07-14-2022 RBC (Bld) [#/Vol] 4.95 10*6/uL 4.2-5.4 [facility] Blood hemoglobin measurement (mass/volume)Ordered By: Rea Poon on 07-14-2022 Hemoglobin (Bld) [Mass/Vol] 13.7 g/dL 12.0-15.0 [facility] Blood lymphocytes/100 leukoc ytesOrdered By: Rea Poon on 07-14-2022 Lymphocytes/100 WBC (Bld) 24.5 % 19-41 [facility] Blood monocytes/100 leukocyt esOrdered By: Rea Poon on 07-14-2022 Monocytes/100 WBC (Bld) 7.9 % 0-10 [facility] Blood platelet mean volumeOr dered By: Rea Poon on 07-14-2022 Platelet mean volume (Bld) [Entitic vol] 11.2 fL 6.2-12.0 [facility] Determination of erythrocyte mean corpuscular volume (MCV)Ordered By: Rea Poon on 07-14-2022 MCV (RBC) [Entitic vol] 86.5 fL 81-99 [facility] Erythrocyte sedimentation ra teOrdered By: Rea Poon on 07-14-2022 ESR (Bld) [Velocity] 2 mm/h 0-30 [facility] Hematocrit Auto (Bld) [Volum e fraction]Ordered By: Rea Poon on 07-14-2022 Hematocrit (Bld) [Volume fraction] 42.8 % 37-47 [facility] MCHC Auto (RBC) [Mass/Vol]Or dered By: Rea Poon on 07-14-2022 MCHC (RBC) [Mass/Vol] 32.0 g/dL 32-36 [facility] No Panel InformationOrdered By: Rea Poon on 07-14-2022 <2 U/mL 0-5 [facility] 27.7 pg 27.0-32.0 [facility] 14.3 % 11.6-14.6 [facility] 44.9 fl 35.1-43.9 [facility] 0.300 % 0.0-0.9 [facility] 0 % 0-5 [facility] 83 mL/min >60 [facility] 100 mL/min >60 [facility] 7.2 RATIO 10-20 [facility] 3.5 g/dL 2.2-4.2 [facility] 60 U/L 45-117 [facility] 25 U/L 13-56 [facility] 30.0 mmol/L 21.0-32.0 [facility] 0.3 AI 0.0-0.9 [facility] <0.2 AI 0.0-0.9 [facility] Negative Negative [facility] Platelets bldOrdered By: Eleanor Poon on 07-14-2022 Platelets (Bld) [#/Vol] 180 10*3/uL 150-450 [facility] Serum DNA double strand anti body assay (units/volume)Ordered By: Rea Poon on 07-14-2022 DNA double strand Ab Qn (S) [IU]/mL 0-9 [facility] Serum IgA measurement (units /volume)Ordered By: Rea Poon on 07-14-2022 IgA Qn (S) 19 mg/dL 87-352 [facility] Serum Alise-1 antibody assay (u nits/volume)Ordered By: Rea Poon on 07-14-2022 Alise-1 extractable nuclear Ab Qn (S) <0.2 AI 0.0-0.9 [facility] Serum Scl-70 extractable nuc lear antibody assay (units/volume)Ordered By: Rea Poon on 07-14-2022 SCL-70 extractable nuclear Ab Qn (S) <0.2 AI 0.0-0.9 [facility] Serum Freedman extractable nucl ear antibody detectionOrdered By: Rea Poon on 07-14-2022 Freedman extractable nuclear Ab Ql (S) <0.2 AI 0.0-0.9 [facility] Serum classic neutrophil cyt oplasmic antibody assay (units/volume)Ordered By: Rea Poon on 07-14-2022 Neutrophil cytoplasmic Ab.classic Qn (S) <1:20 titer Neg:<1:20 [facility] Serum or plasma C reactive p rotein measurement (mass/volume)Ordered By: Rea Poon on 07-14-2022 CRP [Mass/Vol] mg/L 0.0-3.0 [facility] Serum or plasma albumin mg urement (mass/volume)Ordered By: Rea Poon on 07-14-2022 Albumin [Mass/Vol] 3.7 g/dL 3.2-5.0 [facility] Serum or plasma albumin/glob ulin mass ratioOrdered By: Rea Poon on 07-14-2022 Albumin/Globulin [Mass ratio] 1.1 {ratio} 0.9-2.4 [facility] Serum or plasma calcium mg urement (mass/volume)Ordered By: Rea Poon on 07-14-2022 Calcium [Mass/Vol] 9.2 mg/dL 8.5-10.1 [facility] Serum or plasma creatinine m easurement (mass/volume)Ordered By: Rea Poon on 07-14-2022 Creatinine [Mass/Vol] 0.83 mg/dL 0.55-1.02 [facility] Serum or plasma urea nitroge n measurement (mass/volume)Ordered By: Rea Poon on 07-14-2022 Urea nitrogen [Mass/Vol] 6 mg/dL 7-18 [facility] Serum perinuclear neutrophil cytoplasmic antibody titer by immunofluorescenceOrdered By: Rea Poon on 07-14-2022 Neutrophil cytoplasmic Ab.perinuclear IF (S) [Titer] <1:20 titer Neg:<1:20 [facility] Serum tissue transglutaminas e IgA antibody assay (units/volume)Ordered By: Rea Poon on 07-14-2022 tTG IgA Qn (S) <2 U/mL 0-3 [facility] Thin prep Papanicolaou smear with manual screeningOrdered By: Rea Poon on 07-14-2022 Thin prep Papanicolaou smear with manual screening 15 U/L 15-37 [facility] Thin prep Papanicolaou smear with manual screening 5 5-15 [facility] BASIC METABOLIC PANELon 06-22 Anion gap [Moles/Vol] 11 mmol/L Normal 10 - 20 [facility] Comment on above: Performed By: #### B MP #### [address] [address] Calcium [Mass/Vol] 9.1 mg/dL Normal 8.6 - 10.3 [facility] Comment on above: Performed By: #### B MP #### [address] [address] Chloride [Moles/Vol] 103 mmol/L Normal 98 - 107 [facility] Comment on above: Performed By: #### B MP #### [address] [address] Creatinine [Mass/Vol] 0.72 mg/dL Normal 0.50 - 1.05 [facility] Comment on above: Performed By: #### B MP #### [address] [address] eGFR FEMALE >90 Normal >90 [facility] Comment on above: Result Comment: CALC ULATIONS OF ESTIMATED GFR ARE PERFORMED USING THE 2020 CKD-EPI STUDY REFIT EQUATION WITHOUT THE RACE VARIABLE FOR THE IDMS-TRACEABLE CREATININE METHODS. https://jasn.asnjournals.org/content/early//ASN 003145 Performed By: #### B MP #### [address] [address] Glucose [Mass/Vol] 137 mg/dL High 74 - 99 [facility] Comment on above: Performed By: #### B MP #### [address] [address] HCO3 (Bld) [Moles/Vol] 26 mmol/L Normal 21 - 32 [facility] Comment on above: Performed By: #### B MP #### [address] [address] Potassium [Moles/Vol] 3.9 mmol/L Normal 3.5 - 5.3 [facility] Comment on above: Performed By: #### B MP #### [place] [address] Sodium [Moles/Vol] 136 mmol/L Normal 136 - 145 [facility] Comment on above: Performed By: #### B MP #### [address] [address] Urea nitrogen [Mass/Vol] 13 mg/dL Normal 6 - 23 [facility] Comment on above: Performed By: #### B MP #### [address] [address] CBC AND DIFFERENTIALon 07-05 % AUTOMATED IMMATURE GRAN 0.5 % Normal 0.0 - 0.9 [facility] Comment on above: Result Comment: Lyssa ture Granulocyte Count (IG) includes promyelocytes, myelocytes and metamyelocytes but does not include bands. Percent differential counts (%) should be interpreted in the context of the absolute cell counts (cells/L). Performed By: #### C BCDF #### [address] [address] Basophils (Bld) [#/Vol] 0.02 10*3/uL Normal 0.00 - 0.1 0 [facility] Comment on above: Performed By: #### C BCDF #### [address] [address] Basophils/100 WBC (Bld) 0.3 % Normal 0.0 - 2.0 [facility] Comment on above: Performed By: #### C BCDF #### [address] [address] Eosinophils (Bld) [#/Vol] 0.01 10*3/uL Normal 0.00 - 0.70 [facility] Comment on above: Performed By: #### C BCDF #### [address] [address] Eosinophils/100 WBC (Bld) 0.2 % Normal 0.0 - 6.0 [facility] Comment on above: Performed By: #### C BCDF #### [address] [address] Erythrocyte distribution width (RBC) [Ratio] 14.4 % Normal 11.5 - 14.5 [facility] Comment on above: Performed By: #### C BCDF #### [address] [address] Hematocrit (Bld) [Volume fraction] 41.8 % Normal 36.0 - 46.0 [facility] Comment on above: Performed By: #### C BCDF #### [address] [address] Hemoglobin (Bld) [Mass/Vol] 13.6 g/dL Normal 12.0 - 16.0 [facility] Comment on above: Performed By: #### C BCDF #### [address] [address] Lymphocytes (Bld) [#/Vol] 0.91 10*3/uL Low 1.20 - 4.80 [facility] Comment on above: Performed By: #### C BCDF #### [address] [address] Lymphocytes/100 WBC (Bld) 14.2 % Normal 13.0 - 44.0 [facility] Comment on above: Performed By: #### C BCDF #### [address] [address] MCHC (RBC) [Mass/Vol] 32.5 g/dL Normal 32.0 - 36.0 [facility] Comment on above: Performed By: #### C BCDF #### [address] [address] MCV (RBC) [Entitic vol] 84 fL Normal 80 - 100 [facility] Comment on above: Performed By: #### C BCDF #### [address] [address] Monocytes (Bld) [#/Vol] 0.28 10*3/uL Normal 0.10 - 1.0 0 [facility] Comment on above: Performed By: #### C BCDF #### [address] [address] Monocytes/100 WBC (Bld) 4.4 % Normal 2.0 - 10.0 [facility] Comment on above: Performed By: #### C BCDF #### [address] [address] Neutrophils (Bld) [#/Vol] 5.17 10*3/uL Normal 1.20 - 7.70 [facility] Comment on above: Result Comment: Perc ent differential counts (%) should be interpreted in the context of the absolute cell counts (cells/L). Performed By: #### C BCDF #### [address] [address] Neutrophils/100 WBC (Bld) 80.4 % Normal 40.0 - 80.0 [facility] Comment on above: Performed By: #### C BCDF #### [address] [address] Platelets (Bld) [#/Vol] 212 10*3/uL Normal 150 - 450 [facility] Comment on above: Performed By: #### C BCDF #### [address] [address] RBC 5.00 x10E12/L Normal 4.00 - 5.20 [facility] Comment on above: Performed By: #### C BCDF #### [address] [address] WBC (Bld) [#/Vol] 6.4 10*3/uL Normal 4.4 - 11.3 [facility] Comment on above: Performed By: #### C BCDF #### [address] [address] HEPATIC FUNCTION PANELon Albumin [Mass/Vol] 4.5 g/dL Normal 3.4 - 5.0 [facility] Comment on above: Performed By: #### H EPFP #### [address] [address] ALP [Catalytic activity/Vol] 61 U/L Normal 33 - 110 [facility] Comment on above: Performed By: #### H EPFP #### [address] [address] ALT [Catalytic activity/Vol] 13 U/L Normal 7 - 45 [facility] Comment on above: Result Comment: Kamilla ents treated with Sulfasalazine may generate falsely decreased results for ALT. Performed By: #### H EPFP #### [address] [address] AST [Catalytic activity/Vol] 11 U/L Normal 9 - 39 [facility] Comment on above: Performed By: #### H EPFP #### [address] [address] Bilirubin [Mass/Vol] 0.3 mg/dL Normal 0.0 - 1.2 [facility] Comment on above: Performed By: #### H EPFP #### [address] [address] Bilirubin.indirect [Mass/Vol] 0.1 mg/dL Normal 0.0 - 0.3 [facility] Comment on above: Performed By: #### H EPFP #### [address] [address] Protein [Mass/Vol] 7.2 g/dL Normal 6.4 - 8.2 [facility] Comment on above: Performed By: #### H EPFP #### [address] [place] [address] LACTATEon 07-05-2022 Lactate [Moles/Vol] 1.2 mmol/L Normal 0.4 - 2.0 [facility] Comment on above: Result Comment: Sandra puncture immediately after or during the administration of Metamizole may lead to falsely low results. Testing should be performed immediately prior to Metamizole dosing. Performed By: #### L ACT #### [address] [address] LIPASEon 07-05-2022 Lipase [Catalytic activity/Vol] 15 U/L Normal 9 - 82 [facility] Comment on above: Result Comment: Sandra puncture immediately after or during the administration of Metamizole may lead to falsely low results. Testing should be performed immediately prior to Metamizole dosing. N-zfvxws-t-benzoquinone imine (metabolite of Acetaminophen) will generate erroneously low results in samples for patients that have taken toxic doses of acetaminophen. Performed By: #### L IPAS #### [address] [address] Provider Note - ED v3on 06-22 Provider [...] following those procedures. They were done at [place]. Patient gets most of her medical care at [facility]. States she was in the area [...] Alert and oriented x4, GCS 15 , social services designee II-XII grossly intact. Sensation and motor function of extremities grossly intact. Psych: Appropriate mood and affect. I have reviewed and confirmed nurses/medics notes for patient past, social and family history. Portions of this note were dictated by speech recognition. An attempt at proof reading was made to minimize errors. Minor errors in cleaner assistant may be present. HISTORY OF PRESENTING ILLNESS LANA is a 37 year old Female and was seen by me at 04-Jul-2022 22:12 for a chief complaint of abdominal pain (pt c/o right mid abdominal pain that started a few hours [employer]. 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 Triage [...] Reference Range: STRAW,YELLOW Appearance, Urine CLEAR Specific [place], Urine 1.012 pH, Urine 6.0 Protein, Urine [...] SIGNS: T PRBP SpO2O2(LPM) %FiO2 Method 04-Jul-2022 23:00:[id number] 95 room air, no respiratory support 04-Jul-2022 22:35:[id number]/79 96 room air, no respiratory support 04-Jul-2022 22:09:[id number] 98 room air, no respiratory support 04-Jul-2022 22:05:[id number]/79 98 room air, no respiratory support MDM MDM/ED COURSE: Patient is nontoxic appearing. I did review on the [employer] network. She had a CT abdomen pelvis on June 10. She had an ultrasound of the pelvis also at [place] on June 22 and another ultrasound at [facility] the next day on the second. I also reviewed the OARRS report which is somewhat extensive. Reassessment patient resting comfortab (more content not included)... Normal [facility] Risk Screen - Adult Emergenc yon 07-05-2022 [...] material; verbal instruction Cultural Considerationsnone Developmental Considerationsnone Episcopal Considerationsnone Learning Assessment (Other Learner): Learning Assessment (Other Learner): Other learner availableyes... Learnerspouse Factors Influencing Readiness to Learnacuteness of illness Factors that Impact Ability to Learnnone Devices/Methods Used to Communicatenone Learning Preferencesverbal instruction, written material Cultural Considerationsnone Developmental Considerationsnone Episcopal Considerationsnone Pressure Injury/TB/Substance: Pressure Injury: Do you [...] an injured patient at a Trauma Center ([facility]/[place]/[facility]/[place]): no Electronic Signatures: Cristiana Golden (SHELBY) (Signed 04-Jul-2022 22:13) Authored: Preferred Language, Patient Preferred Pharmacy, Advanced Directives, Family Violence Adult, Learning Assessment (Patient), Learning Assessment (Other Learner), Pressure Injury/TB/Substance, Pressure Injury, CAGE Last Updated: 04-Jul-2022 22:13 by Cristiana Golden) [facility] Triage - EDon 07-05-2022 Triage - ED Quick Triage: Are You no Have You Given In The Last 6 Weeksno Are You Currently Breastfeedingno Chart Review: ARRIVAL INFORMATION Mode of Arrival: private vehicle CHIEF COMPLAINT LANA RIVERA is a Female patient with a chief complaint of abdominal pain (pt c/o right mid abdominal pain that started a few hours [employer]. 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 Triage [...] BMI (kg/m2): 36.312 Calculated BSA (m2) 2.18 [place] Coma Scale: Best Eye Response: (E4) spontaneous Best Motor Response: (M6) obeys commands Best Verbal Response: (V5) oriented Guero Score: 15 RETOUCHER History: hysterectomy Patient has homicidal thoughts: no [...] 04-Jul-2022 22:12 by Cristiana Golden (RN) Normal [facility] URINALYSIS WITH CULTURE IF I NDICATEDon 07-05-2022 Appearance (U) CLEAR Normal CLEAR [facility] Comment on above: Performed By: #### U ARFX #### [place] [address] Bilirubin Ql (U) Negative Normal NEGATIVE [facility] Comment on above: Performed By: #### U AR[place] #### [place] [address] Color (U) Straw Normal STRAW,YELLOW [facility] Comment on above: Performed By: #### U ARFX #### [place] [address] Glucose Ql (U) Negative Normal NEGATIVE [facility] Comment on above: Performed By: #### U ARFX #### [place] [address] Hemoglobin Ql (U) Negative Normal NEGATIVE [facility] Comment on above: Performed By: #### U ARFX #### [place] [address] Ketones Ql (U) Negative Normal NEGATIVE [facility] Comment on above: Performed By: #### U ARFX #### [place] [id number] Leukocyte esterase Test strip Ql (U) Negative Normal NEGATIVE [facility] Comment on above: Performed By: #### U ARFX #### [address] [address] Nitrite Ql (U) Negative Normal NEGATIVE [facility] Comment on above: Performed By: #### U ARFX #### [place] [id number] pH (U) 6.0 [pH] Normal 5.0 - 8.0 [facility] Comment on above: Performed By: #### U ARFX #### [place] [address] Protein Ql (U) Negative Normal NEGATIVE [facility] Comment on above: Performed By: #### U ARFX #### [address] [address] Specific gravity (U) [Rel density] 1.012 Normal 1.005 - 1.035 [facility] Comment on above: Performed By: #### U ARFX #### [address] [address] Urobilinogen (U) [Mass/Vol] mg/dL Normal 0.0 - 1.9 [facility] Comment on above: Performed By: #### U ARFX #### [address] [address] No Panel Informationon 06-29 Negative [facility] Negative [facility] US PELVIC TRANSABDOMINAL AND TRANSVAGINAL WITH [...] MonJun 23, 2022 10:43:29 PM EST Normal [facility] Comment on above: Order Comment: Injur y/Trauma or Illness?:Illness/Other How long have you had these symptoms (acute/chronic)?:Acute Reason for exam?:r/o ovarian torsion History of cancer?:unknown Surgeries, chemotherapy, or radiation?:unknown Type of Exam?:Initial Additional signs and symptoms?:none Absolute lymphocyte countOrd ered By: Dr. Jacobs on 06-10-2022 Lymphocytes Auto (Unsp spec) [#/Vol] 0.96 10*3/uL 0.83-4.51 [facility] Basophil percentageOrdered B y: Dr. Jacobs on 06-10-2022 Basophil percentage 108 mg/dL 74-106 [facility] Basophil percentage 139 mmol/L 136-145 [facility] Basophil percentage 3.9 mmol/L 3.5-5.1 [facility] Basophil percentage 106 mmol/L 98-107 [facility] Basophils (Bld) [#/Vol] 3.6 10*3/uL 4.4-11.0 [facility] Basophils (Bld) [#/Vol] 2.1 10*3/uL 2.0-7.7 [facility] Basophils/100 WBC (Bld) 56.4 % 47-70 [facility] Basophils/100 WBC (Bld) 8.0 % 0-5 [facility] Basophils/100 WBC (Bld) 0.6 % 0-1 [facility] Blood erythrocytes count (nu mber/volume)Ordered By: Dr. Jacobs on 06-10-2022 RBC (Bld) [#/Vol] 4.73 10*6/uL 4.2-5.4 [facility] Blood hemoglobin measurement (mass/volume)Ordered By: Dr. Jacobs on 06-10-2022 Hemoglobin (Bld) [Mass/Vol] 12.9 g/dL 12.0-15.0 [facility] Blood lymphocytes/100 leukoc ytesOrdered By: Dr. Jacobs on 06-10-2022 Lymphocytes/100 WBC (Bld) 26.4 % 19-41 [facility] Blood monocytes/100 leukocyt esOrdered By: Dr. Jacobs on 06-10-2022 Monocytes/100 WBC (Bld) 8.3 % 0-10 [facility] Blood platelet mean volumeOr dered By: Dr. Jacobs on 06-10-2022 Platelet mean volume (Bld) [Entitic vol] 10.8 fL 6.2-12.0 [facility] Determination of erythrocyte mean corpuscular volume (MCV)Ordered By: Dr. Jacobs on 06-10-2022 MCV (RBC) [Entitic vol] 85.4 fL 81-99 [facility] Hematocrit Auto (Bld) [Volum e fraction]Ordered By: Dr. Jacobs on 06-10-2022 Hematocrit (Bld) [Volume fraction] 40.4 % 37-47 [facility] MCHC Auto (RBC) [Mass/Vol]Or dered By: Dr. Jacobs on 06-10-2022 MCHC (RBC) [Mass/Vol] 31.9 g/dL 32-36 [facility] No Panel InformationOrdered By: Dr. Jacobs on 06-10-2022 27.3 pg 27.0-32.0 [facility] 14.9 % 11.6-14.6 [facility] 46.7 fl 35.1-43.9 [facility] 0.300 % 0.0-0.9 [facility] 0 % 0-5 [facility] 107 mL/min >60 [facility] 129 mL/min >60 [facility] 109.71 ml/min [facility] 9.0 RATIO 10-20 [facility] 26.0 mmol/L 21.0-32.0 [facility] Platelets bldOrdered By: Dr. Jacobs on 06-10-2022 Platelets (Bld) [#/Vol] 166 10*3/uL 150-450 [facility] Serum or plasma calcium mg urement (mass/volume)Ordered By: Dr. Jacobs on 06-10-2022 Calcium [Mass/Vol] 8.3 mg/dL 8.5-10.1 [facility] Serum or plasma creatinine m easurement (mass/volume)Ordered By: Dr. Jacobs on 06-10-2022 Creatinine [Mass/Vol] 0.67 mg/dL 0.55-1.02 [facility] Serum or plasma urea nitroge n measurement (mass/volume)Ordered By: Dr. Jacobs on 06-10-2022 Urea nitrogen [Mass/Vol] 6 mg/dL 7-18 [facility] Thin prep Papanicolaou smear with manual screeningOrdered By: Dr. Jacobs on 06-10-2022 Thin prep Papanicolaou smear with manual screening 7 5-15 [facility] No Panel InformationOrdered By: Grace Cho on 05-30-2022 2.1 mg/dL 1.6-2.6 [facility] 1.56 uIU/mL 0.358-3.74 [facility] 17.6 ng/mL [facility] Absolute lymphocyte countOrd ered By: ED PROVIDER on 05-23-2022 Lymphocytes Auto (Unsp spec) [#/Vol] 1.87 10*3/uL 0.83-4.51 [facility] Basophil percentageOrdered B y: Dr. Barajas on 05-23-2022 Basophil percentage 0 SEEN /hpf 0-5 [facility] Basophil percentage 108 mg/dL 74-106 [facility] Basophil percentage 139 mmol/L 136-145 [facility] Basophil percentage 3.7 mmol/L 3.5-5.1 [facility] Basophil percentage 107 mmol/L 98-107 [facility] Basophil percentageOrdered B y: ED PROVIDER on 05-23-2022 Basophils (Bld) [#/Vol] 4.9 10*3/uL 4.4-11.0 [facility] Basophils (Bld) [#/Vol] 2.3 10*3/uL 2.0-7.7 [facility] Basophils/100 WBC (Bld) 0.6 % 0-1 [facility] Basophils/100 WBC (Bld) 46.4 % 47-70 [facility] Basophils/100 WBC (Bld) 4.5 % 0-5 [facility] Basophil percentageon 2022 Chloride [Moles/Vol] 107 mmol/L 98-107 [facility] Work Phone: Eosinophils/100 WBC (Bld) 4.5 % 0-5 [facility] Work Phone: Glucose [Mass/Vol] 108 mg/dL 74-106 [facility] Work Phone: Comment on above: Fasting Glucose resu lt from 100 to 125 mg/dL suggests IMPAIRED HOMEOSTASIS per A.D.A. criteria. Neutrophils (Bld) [#/Vol] 2.3 10*3/uL 2.0-7.7 [facility] Work Phone: Neutrophils/100 WBC (Bld) 46.4 % 47-70 [facility] Work Phone: Potassium [Moles/Vol] 3.7 mmol/L 3.5-5.1 [facility] Work Phone: Sodium [Moles/Vol] 139 mmol/L 136-145 [facility] Work Phone: WBC (Bld) [#/Vol] 4.9 10*3/uL 4.4-11.0 [facility] Work Phone: Bilirubin Test strip Ql (U)O rdered By: Dr. Barajas on 05-23-2022 Bilirubin Ql (U) Negative Negative [facility] Blood erythrocytes count (nu mber/volume)Ordered By: ED PROVIDER on 05-23-2022 RBC (Bld) [#/Vol] 4.62 10*6/uL 4.2-5.4 [facility] Blood hemoglobin measurement (mass/volume)Ordered By: ED PROVIDER on 05-23-2022 Hemoglobin (Bld) [Mass/Vol] 12.9 g/dL 12.0-15.0 [facility] Blood lymphocytes/100 leukoc ytesOrdered By: ED PROVIDER on 05-23-2022 Lymphocytes/100 WBC (Bld) 38.4 % 19-41 [facility] Blood monocytes/100 leukocyt esOrdered By: ED PROVIDER on 05-23-2022 Monocytes/100 WBC (Bld) 9.9 % 0-10 [facility] Blood platelet mean volumeOr dered By: ED PROVIDER on 05-23-2022 Platelet mean volume (Bld) [Entitic vol] 10.8 fL 6.2-12.0 [facility] Determination of erythrocyte mean corpuscular volume (MCV)Ordered By: ED PROVIDER on 05-23-2022 MCV (RBC) [Entitic vol] 85.7 fL 81-99 [facility] Hematocrit Auto (Bld) [Volum e fraction]Ordered By: ED PROVIDER on 05-23-2022 Hematocrit (Bld) [Volume fraction] 39.6 % 37-47 [facility] Ketones Test strip Ql (U)Ord ered By: Dr. Barajas on 05-23-2022 Ketones Ql (U) Negative Negative [facility] Laboratory - Chemistry and C hemistry - challengeon 05-23-2022 CO2 [Moles/Vol] 28.0 mmol/L 21.0-32.0 [facility] Work Phone: Urea nitrogen/Creatinine [Mass ratio] 14.6 mg/mg 10-20 [facility] Work Phone: Laboratory - Hematology and Cell countson 05-23-2022 Erythrocyte distribution width (RBC) [Entitic vol] 49.7 fL 35.1-43.9 [facility] Work Phone: Erythrocyte distribution width (RBC) [Ratio] 15.9 % 11.6-14.6 [facility] Work Phone: Immature granulocytes/100 WBC (Bld) 0.200 % 0.0-0.9 [facility] Work Phone: Comment on above: IG% - Immature Granu locytes (promyelocytes, myelocytes and metamyelocytes) > 1% indicates that a LEFT SHIFT is Present. MCH (RBC) [Entitic mass] 27.9 pg 27.0-32.0 [facility] Work Phone: Nucleated RBC/100 WBC (Bld) [Ratio] 0 % 0-5 [facility] Work Phone: MCHC Auto (RBC) [Mass/Vol]Or dered By: ED PROVIDER on 05-23-2022 MCHC (RBC) [Mass/Vol] 32.6 g/dL 32-36 [facility] Mucus LM Ql (Urine sed)Order ed By: Dr. Barajas on 05-23-2022 Mucus Ql (Urine sed) 0 SEEN /hpf [facility] Nitrite Test strip Ql (U)Ord ered By: Dr. Barajas on 05-23-2022 Nitrite Ql (U) Negative Negative [facility] No Panel Informationon 05-23 Estimated Creatinine Clearance Calc 108.10 ml/min [facility] Work Phone: Estimated GFR (MDRD) Amer 126 mL/min >60 [facility] Work Phone: Comment on above: GFR Calc Estimated GFR (MDRD) Non-Af Amer 104 mL/min >60 [facility] Work Phone: Comment on above: Non- GFR Calc No Panel InformationOrdered By: ED PROVIDER on 05-23-2022 27.9 pg 27.0-32.0 [facility] 15.9 % 11.6-14.6 [facility] 49.7 fl 35.1-43.9 [facility] 0.200 % 0.0-0.9 [facility] 0 % 0-5 [facility] No Panel InformationOrdered By: Dr. Barajas on 05-23-2022 104 mL/min >60 [facility] 126 mL/min >60 [facility] 108.10 ml/min [facility] 14.6 RATIO 10-20 [facility] 28.0 mmol/L 21.0-32.0 [facility] Platelets bldOrdered By: ED PROVIDER on 05-23-2022 Platelets (Bld) [#/Vol] 191 10*3/uL 150-450 [facility] Protein Test strip Ql (U)Ord ered By: Dr. Barajas on 05-23-2022 Protein Ql (U) 15 mg/dl Negative [facility] Serum or plasma calcium mg urement (mass/volume)Ordered By: Dr. Barajas on 05-23-2022 Calcium [Mass/Vol] 9.2 mg/dL 8.5-10.1 [facility] Serum or plasma creatinine m easurement (mass/volume)Ordered By: Dr. Barajas on 05-23-2022 Creatinine [Mass/Vol] 0.68 mg/dL 0.55-1.02 [facility] Comment on above: The validity of the calculated GFR & GFRAA in patients over 70 years has not been determined. Clinical correlation is essential. Serum or plasma urea nitroge n measurement (mass/volume)Ordered By: Dr. Barajas on 05-23-2022 Urea nitrogen [Mass/Vol] 10 mg/dL 7-18 [facility] Squamous epithelial cells de tection in urine sediment by light microscopyOrdered By: Dr. Barajas on 05-23-2022 Epithelial cells.squamous LM Ql (Urine sed) 5-10 SEEN /hpf 5-10 [facility] Thin prep Papanicolaou smear with manual screeningOrdered By: Dr. Barajas on 05-23-2022 Thin prep Papanicolaou smear with manual screening 4 5-15 [facility] Urine blood detectionOrdered By: Dr. Barajas on 05-23-2022 RBC Ql (U) Negative Negative [facility] RBC Ql (U) 0 SEEN /hpf 0-5 [facility] Urine clarityOrdered By: Dr. Barajas on 05-23-2022 Clarity (U) Sl. Cloudy Clear [facility] Urine color determinationOrd ered By: Dr. Barajas on 05-23-2022 Color (U) Yellow Yellow [facility] Urine glucose detectionOrder ed By: Dr. Barajas on 05-23-2022 Glucose Ql (U) Normal mg/dl Normal [facility] Urine leukocyte esterase det ection by dipstickOrdered By: Dr. Barajas on 05-23-2022 Leukocyte esterase Test strip Ql (U) Negative Negative [facility] Urine pHOrdered By: Dr. Nancy orantes on 05-23-2022 pH (U) 6.0 [pH] 5.0 - 8.0 [facility] Urine sediment bacteria coun t by microscopy (number/high power field)Ordered By: Dr. Barajas on 05-23-2022 Bacteria LM.HPF (Urine sed) [#/Area] RARE /hpf None Seen [facility] Urine specific gravity measu rementOrdered By: Dr. Barajas on 05-23-2022 Specific gravity (U) [Rel density] 1.025 1.002-1.030 [facility] Urobilinogen Auto test strip Ql (U)Ordered By: Dr. Barajas on 05-23-2022 Urobilinogen Ql (U) Normal mg/dl Normal [facility] Bacteria identified Anaer cx Nom (Unsp spec)Ordered By: Dr. Myrick on 04-19-2022 Anaerobic culture Prevotella bivia [facility] Anaerobic culture Prevotella melaninogenica [facility] Anaerobic culture Anaerobic cocci [facility] Bacteria identified Cx Nom ( Wound)Ordered By: Dr. Myrick on 04-18-2022 Routine wound culture Enterococcus faecalis [facility] No Panel InformationOrdered By: Dr. Aguila on 04-18-2022 No growth in 5 days. [facility] Basophil percentageOrdered B y: Dr. Myrick on 04-16-2022 Basophils (Bld) [#/Vol] 6.0 10*3/uL 4.4-11.0 [facility] Basophil percentageon 2021 WBC (Bld) [#/Vol] 6.0 10*3/uL 4.4-11.0 [facility] Work Phone: Blood erythrocytes count (nu mber/volume)Ordered By: Dr. Myrick on 04-16-2022 RBC (Bld) [#/Vol] 3.88 10*6/uL 4.2-5.4 [facility] Blood hemoglobin measurement (mass/volume)Ordered By: Dr. Myrick on 04-16-2022 Hemoglobin (Bld) [Mass/Vol] 10.4 g/dL 12.0-15.0 [facility] Blood platelet mean volumeOr dered By: Dr. Myrick on 04-16-2022 Platelet mean volume (Bld) [Entitic vol] 10.2 fL 6.2-12.0 [facility] Determination of erythrocyte mean corpuscular volume (MCV)Ordered By: Dr. Myrick on 04-16-2022 MCV (RBC) [Entitic vol] 84.8 fL 81-99 [facility] Hematocrit Auto (Bld) [Volum e fraction]Ordered By: Dr. Myrick on 04-16-2022 Hematocrit (Bld) [Volume fraction] 32.9 % 37-47 [facility] Laboratory - Hematology and Cell countson 04-16-2022 Erythrocyte distribution width (RBC) [Entitic vol] 38.4 fL 35.1-43.9 [facility] Work Phone: Erythrocyte distribution width (RBC) [Ratio] 12.5 % 11.6-14.6 [facility] Work Phone: MCH (RBC) [Entitic mass] 26.8 pg 27.0-32.0 [facility] Work Phone: MCHC Auto (RBC) [Mass/Vol]Or dered By: Dr. Myrick on 04-16-2022 MCHC (RBC) [Mass/Vol] 31.6 g/dL 32-36 [facility] No Panel InformationOrdered By: Dr. Myrick on 04-16-2022 26.8 pg 27.0-32.0 [facility] 12.5 % 11.6-14.6 [facility] 38.4 fl 35.1-43.9 [facility] Platelets bldOrdered By: Dr. Myrick on 04-16-2022 Platelets (Bld) [#/Vol] 205 10*3/uL 150-450 [facility] Glucose Glucometer (dC) [M ass/Vol]Ordered By: Dr. Moore on 04-15-2022 Glucose [Mass/Vol] 146 mg/dL 74-106 [facility] Comment on above: MANAGEMENT OF PATIEN T CARE PER NURSING PROTOCOL Gram stain for investigation of transfusion reactionOrdered By: Dr. Myrick on 04-15-2022 Microscopic observation Gram stain Nom (Unsp spec) [facility] No Panel Informationon 04-15 Thyroid Stimulating Hormone (TSH) 4.08 uIU/mL 0.358-3.74 [facility] Work Phone: No Panel InformationOrdered By: Dr. Garcia on 04-15-2022 4.08 uIU/mL 0.358-3.74 [facility] Whole blood hemoglobin A1c/t otal hemoglobin ratio (mass fraction)Ordered By: Dr. Garcia on 04-15-2022 HbA1c (Bld) [Mass fraction] 5.6 % 3.8-5.6 [facility] Comment on above: Normal < 5.7 % Predi abetic 5.7 - 6.4 % Diabetic >or= 6.5 % Please note range changes. Absolute lymphocyte countOrd ered By: Dr. Moore on 04-14-2022 Lymphocytes Auto (Unsp spec) [#/Vol] 1.36 10*3/uL 0.83-4.51 [facility] Basophil percentageOrdered B y: Dr. Myrick on 04-14-2022 Basophil percentage 122 mg/dL 74-106 [facility] Basophil percentage 7.5 g/dL 6.4-8.2 [facility] Basophil percentage 0.40 mg/dL 0.20-1.00 [facility] Basophil percentage 135 mmol/L 136-145 [facility] Basophil percentage 3.6 mmol/L 3.5-5.1 [facility] Basophil percentage 100 mmol/L 98-107 [facility] Basophil percentageOrdered B y: Dr. Moore on 04-14-2022 Basophils (Bld) [#/Vol] 5.8 10*3/uL 2.0-7.7 [facility] Basophils/100 WBC (Bld) 0.4 % 0-1 [facility] Basophils/100 WBC (Bld) 69.4 % 47-70 [facility] Basophils/100 WBC (Bld) 2.3 % 0-5 [facility] Basophil percentageon 2021 Bilirubin [Mass/Vol] 0.40 mg/dL 0.20-1.00 [facility] Work Phone: Comment on above: For patients on eltr ombopag therapy, use of Dimension Pruden TBIL is not recommended. Chloride [Moles/Vol] 100 mmol/L 98-107 [facility] Work Phone: Eosinophils/100 WBC (Bld) 2.3 % 0-5 [facility] Work Phone: Glucose [Mass/Vol] 122 mg/dL 74-106 [facility] Work Phone: Comment on above: Fasting Glucose resu lt from 100 to 125 mg/dL suggests IMPAIRED HOMEOSTASIS per A.D.A. criteria. Neutrophils (Bld) [#/Vol] 5.8 10*3/uL 2.0-7.7 [facility] Work Phone: Neutrophils/100 WBC (Bld) 69.4 % 47-70 [facility] Work Phone: Potassium [Moles/Vol] 3.6 mmol/L 3.5-5.1 [facility] Work Phone: Protein [Mass/Vol] 7.5 g/dL 6.4-8.2 [facility] Work Phone: Sodium [Moles/Vol] 135 mmol/L 136-145 [facility] Work Phone: Blood lymphocytes/100 leukoc ytesOrdered By: Dr. Moore on 04-14-2022 Lymphocytes/100 WBC (Bld) 16.2 % 19-41 [facility] Blood monocytes/100 leukocyt esOrdered By: Dr. Moore on 04-14-2022 Monocytes/100 WBC (Bld) 11.5 % 0-10 [facility] Laboratory - Chemistry and C hemistry - challengeon 04-14-2022 ALP [Catalytic activity/Vol] 77 U/L 45-117 [facility] Work Phone: ALT [Catalytic activity/Vol] 16 U/L 13-56 [facility] Work Phone: CO2 [Moles/Vol] 26.0 mmol/L 21.0-32.0 [facility] Work Phone: Globulin (S) [Mass/Vol] 4.3 g/dL 2.2-4.2 [facility] Work Phone: Urea nitrogen/Creatinine [Mass ratio] 10.6 mg/mg 10-20 [facility] Work Phone: Laboratory - Hematology and Cell countson 04-14-2022 Immature granulocytes/100 WBC (Bld) 0.200 % 0.0-0.9 [facility] Work Phone: Comment on above: IG% - Immature Granu locytes (promyelocytes, myelocytes and metamyelocytes) > 1% indicates that a LEFT SHIFT is Present. Nucleated RBC/100 WBC (Bld) [Ratio] 0 % 0-5 [facility] Work Phone: No Panel Informationon 04-14 Estimated Creatinine Clearance Calc 95.11 ml/min [facility] Work Phone: Estimated GFR (MDRD) Amer 113 mL/min >60 [facility] Work Phone: Comment on above: GFR Calc Estimated GFR (MDRD) Non-Af Amer 93 mL/min >60 [facility] Work Phone: Comment on above: Non- GFR Calc No Panel InformationOrdered By: Dr. Moore on 04-14-2022 0.200 % 0.0-0.9 [facility] 0 % 0-5 [facility] No Panel InformationOrdered By: Dr. Myrick on 04-14-2022 93 mL/min >60 [facility] 113 mL/min >60 [facility] 95.11 ml/min [facility] 10.6 RATIO 10-20 [facility] 4.3 g/dL 2.2-4.2 [facility] 77 U/L 45-117 [facility] 16 U/L 13-56 [facility] 26.0 mmol/L 21.0-32.0 [facility] Serum or plasma albumin mg urement (mass/volume)Ordered By: Dr. Myrick on 04-14-2022 Albumin [Mass/Vol] 3.2 g/dL 3.2-5.0 [facility] Serum or plasma albumin/glob ulin mass ratioOrdered By: Dr. Myrick on 04-14-2022 Albumin/Globulin [Mass ratio] 0.7 {ratio} 0.9-2.4 [facility] Serum or plasma calcium gm urement (mass/volume)Ordered By: Dr. Myrick on 04-14-2022 Calcium [Mass/Vol] 9.1 mg/dL 8.5-10.1 [facility] Serum or plasma creatinine m easurement (mass/volume)Ordered By: Dr. Myrick on 04-14-2022 Creatinine [Mass/Vol] 0.75 mg/dL 0.55-1.02 [facility] Comment on above: The validity of the calculated GFR & GFRAA in patients over 70 years has not been determined. Clinical correlation is essential. Serum or plasma urea nitroge n measurement (mass/volume)Ordered By: Dr. Myrick on 04-14-2022 Urea nitrogen [Mass/Vol] 8 mg/dL 7-18 [facility] Thin prep Papanicolaou smear with manual screeningOrdered By: Dr. Myrick on 04-14-2022 Thin prep Papanicolaou smear with manual screening 8 U/L 15-37 [facility] Thin prep Papanicolaou smear with manual screening 9 5-15 [facility] INR in Blood by Coagulation assayOrdered By: Dr. Moore on 04-13-2022 INR Coag (Bld) [Relative time] 1.2 {INR} [facility] Laboratory - Coagulationon 1 06-13-2021 PT Coag (PPP) [Time] 14.4 s 11.7-14.9 [facility] Work Phone: No Panel InformationOrdered By: Dr. Moore on 04-13-2022 14.4 SECONDS 11.7-14.9 [facility] Absolute lymphocyte counton 04-12-2022 Lymphocytes Auto (Unsp spec) [#/Vol] 0.96 10*3/uL 0.83-4.51 [facility] Work Phone: Basophil percentageOrdered B y: Dr. Aguila on 04-12-2022 Basophil percentage 0 SEEN /hpf 0-5 [facility] Basophil percentage 1.6 mmol/L 0.4-2.0 [facility] Basophil percentageon 2021 Basophils/100 WBC (Bld) 0.4 % 0-1 [facility] Work Phone: Chloride [Moles/Vol] 102 mmol/L 98-107 [facility] Work Phone: Eosinophils/100 WBC (Bld) 0.8 % 0-5 [facility] Work Phone: Glucose [Mass/Vol] 109 mg/dL 74-106 [facility] Work Phone: Comment on above: Fasting Glucose resu lt from 100 to 125 mg/dL suggests IMPAIRED HOMEOSTASIS per A.D.A. criteria. Lactate [Moles/Vol] 1.6 mmol/L 0.4-2.0 [facility] Work Phone: Neutrophils (Bld) [#/Vol] 6.4 10*3/uL 2.0-7.7 [facility] Work Phone: Neutrophils/100 WBC (Bld) 76.7 % 47-70 [facility] Work Phone: Potassium [Moles/Vol] 3.3 mmol/L 3.5-5.1 [facility] Work Phone: Sodium [Moles/Vol] 137 mmol/L 136-145 [facility] Work Phone: WBC (Bld) [#/Vol] 8.3 10*3/uL 4.4-11.0 [facility] Work Phone: Bilirubin Test strip Ql (U)O rdered By: Dr. Aguila on 04-12-2022 Bilirubin Ql (U) Negative Negative [facility] Blood erythrocytes count (nu mber/volume)on 04-12-2022 RBC (Bld) [#/Vol] 4.40 10*6/uL 4.2-5.4 [facility] Work Phone: Blood hemoglobin measurement (mass/volume)on 04-12-2022 Hemoglobin (Bld) [Mass/Vol] 11.9 g/dL 12.0-15.0 [facility] Work Phone: Blood lymphocytes/100 leukoc yteson 04-12-2022 Lymphocytes/100 WBC (Bld) 11.6 % 19-41 [facility] Work Phone: Blood monocytes/100 leukocyt eson 04-12-2022 Monocytes/100 WBC (Bld) 10.3 % 0-10 [facility] Work Phone: [phone] Blood platelet mean volumeon 04-12-2022 Platelet mean volume (Bld) [Entitic vol] 10.4 fL 6.2-12.0 [facility] Work Phone: [phone] Determination of erythrocyte mean corpuscular volume (MCV)on 04-12-2022 MCV (RBC) [Entitic vol] 82.3 fL 81-99 [facility] Work Phone: [phone] Hematocrit Auto (Bld) [Volum e fraction]on 04-12-2022 Hematocrit (Bld) [Volume fraction] 36.2 % 37-47 [facility] Work Phone: [phone] Influenza virus A and B and SARS-CoV-2 (COVID-19) Ag panel - Upper respiratory specimOrdered By: Dr. Aguila on 04-12-2022 SARS-CoV-2 (COVID-19) RNA JONE+probe Ql (Resp) [facility] Ketones Test strip Ql (U)Ord ered By: Dr. Aguila on 04-12-2022 Ketones Ql (U) Negative Negative [facility] Laboratory - Chemistry and C hemistry - challengeon 04-12-2022 CO2 [Moles/Vol] 28.0 mmol/L 21.0-32.0 [facility] Work Phone: [phone] Urea nitrogen/Creatinine [Mass ratio] 7.1 mg/mg 10-20 [facility] Work Phone: [phone] Laboratory - Hematology and Cell countson 04-12-2022 Erythrocyte distribution width (RBC) [Entitic vol] 37.9 fL 35.1-43.9 [facility] Work Phone: [phone] Erythrocyte distribution width (RBC) [Ratio] 12.4 % 11.6-14.6 [facility] Work Phone: [phone] Immature granulocytes/100 WBC (Bld) 0.200 % 0.0-0.9 [facility] Work Phone: [phone] Comment on above: IG% - Immature Granu locytes (promyelocytes, myelocytes and metamyelocytes) > 1% indicates that a LEFT SHIFT is Present. MCH (RBC) [Entitic mass] 27.0 pg 27.0-32.0 [facility] Work Phone: Nucleated RBC/100 WBC (Bld) [Ratio] 0 % 0-5 [facility] Work Phone: MCHC Auto (RBC) [Mass/Vol]on 04-12-2022 MCHC (RBC) [Mass/Vol] 32.9 g/dL 32-36 [facility] Work Phone: Mucus LM Ql (Urine sed)Order ed By: Dr. Aguila on 04-12-2022 Mucus Ql (Urine sed) 0 SEEN /hpf [facility] Nitrite Test strip Ql (U)Ord ered By: Dr. Aguila on 04-12-2022 Nitrite Ql (U) Negative Negative [facility] No Panel Informationon 04-12 D-Dimer Quantitative (PE/DVT) 1.56 FEU/ug/m 0.27-0.49 [facility] Work Phone: Comment on above: D-Dimer [...] (PE) Estimated Creatinine Clearance Calc 101.90 ml/min [facility] Work Phone: Estimated GFR (MDRD) Amer 122 mL/min >60 [facility] Work Phone: Comment on above: GFR Calc Estimated GFR (MDRD) Non-Af Amer 101 mL/min >60 [facility] Work Phone: Comment on above: Non- GFR Calc No Panel InformationOrdered By: Dr. Aguila on 04-12-2022 1.56 FEU/ug/m 0.27-0.49 [facility] Platelets bldon 04-12-2022 Platelets (Bld) [#/Vol] 255 10*3/uL 150-450 [facility] Work Phone: Protein Test strip Ql (U)Ord ered By: Dr. Aguila on 04-12-2022 Protein Ql (U) Negative Negative [facility] Serum or plasma calcium mg urement (mass/volume)on 04-12-2022 Calcium [Mass/Vol] 9.0 mg/dL 8.5-10.1 [facility] Work Phone: Serum or plasma creatinine m easurement (mass/volume)on 04-12-2022 Creatinine [Mass/Vol] 0.70 mg/dL 0.55-1.02 [facility] Work Phone: Comment on above: The validity of the calculated GFR & GFRAA in patients over 70 years has not been determined. Clinical correlation is essential. Serum or plasma urea nitroge n measurement (mass/volume)on 04-12-2022 Urea nitrogen [Mass/Vol] 5 mg/dL 7-18 [facility] Work Phone: Squamous epithelial cells de tection in urine sediment by light microscopyOrdered By: Dr. Aguila on 04-12-2022 Epithelial cells.squamous LM Ql (Urine sed) 0-5 SEEN /hpf 5-10 [facility] Thin prep Papanicolaou smear with manual screeningon 04-12-2022 Thin prep Papanicolaou smear with manual screening 7 5-15 [facility] Work Phone: Urine blood detectionOrdered By: Dr. Aguila on 04-12-2022 RBC Ql (U) Negative Negative [facility] RBC Ql (U) 0 SEEN /hpf 0-5 [facility] Urine clarityOrdered By: Dr. Aguila on 04-12-2022 Clarity (U) Clear Clear [facility] Urine color determinationOrd ered By: Dr. Aguila on 04-12-2022 Color (U) Yellow Yellow [facility] Urine glucose detectionOrder ed By: Dr. Aguila on 04-12-2022 Glucose Ql (U) Normal mg/dl Normal [facility] Urine leukocyte esterase det ection by dipstickOrdered By: Dr. Aguila on 04-12-2022 Leukocyte esterase Test strip Ql (U) 25 /ul Negative [facility] Urine pHOrdered By: Dr. Presley baxter on 04-12-2022 pH (U) 6.5 [pH] 5.0 - 8.0 [facility] Urine sediment bacteria coun t by microscopy (number/high power field)Ordered By: Dr. Aguila on 04-12-2022 Bacteria LM.HPF (Urine sed) [#/Area] 0 /[HPF] None Seen [facility] Urine specific gravity measu rementOrdered By: Dr. Aguila on 04-12-2022 Specific gravity (U) [Rel density] 1.010 1.002-1.030 [facility] Urobilinogen Auto test strip Ql (U)Ordered By: Dr. Aguila on 04-12-2022 Urobilinogen Ql (U) Normal mg/dl Normal [facility] Bacteria identified Cx Nom ( U)Ordered By: Dr. Myirck on 03-31-2022 Culture, urine Mixed Gram Pos & Gra m Neg Org [facility] Absolute lymphocyte countOrd ered By: Dr. Kulkarni on 03-30-2022 Lymphocytes Auto (Unsp spec) [#/Vol] 1.50 10*3/uL 0.83-4.51 [facility] Basophil percentageOrdered B y: Dr. Kulkarni on 03-30-2022 Basophil percentage 102 mg/dL 74-106 [facility] Basophil percentage 7.3 g/dL 6.4-8.2 [facility] Basophil percentage 0.40 mg/dL 0.20-1.00 [facility] Basophil percentage 137 mmol/L 136-145 [facility] Basophil percentage 3.8 mmol/L 3.5-5.1 [facility] Basophil percentage 105 mmol/L 98-107 [facility] Basophils (Bld) [#/Vol] 6.5 10*3/uL 4.4-11.0 [facility] Basophils (Bld) [#/Vol] 4.2 10*3/uL 2.0-7.7 [facility] Basophils/100 WBC (Bld) 0.3 % 0-1 [facility] Basophils/100 WBC (Bld) 64.8 % 47-70 [facility] Basophils/100 WBC (Bld) 4.0 % 0-5 [facility] Basophil percentageon 2021 Bilirubin [Mass/Vol] 0.40 mg/dL 0.20-1.00 [facility] Work Phone: Comment on above: For patients on eltr ombopag therapy, use of Dimension Pruden TBIL is not recommended. Chloride [Moles/Vol] 105 mmol/L 98-107 [facility] Work Phone: Eosinophils/100 WBC (Bld) 4.0 % 0-5 [facility] Work Phone: Glucose [Mass/Vol] 102 mg/dL 74-106 [facility] Work Phone: Comment on above: Fasting Glucose resu lt from 100 to 125 mg/dL suggests IMPAIRED HOMEOSTASIS per A.D.A. criteria. Neutrophils (Bld) [#/Vol] 4.2 10*3/uL 2.0-7.7 [facility] Work Phone: Neutrophils/100 WBC (Bld) 64.8 % 47-70 [facility] Work Phone: Potassium [Moles/Vol] 3.8 mmol/L 3.5-5.1 [facility] Work Phone: Protein [Mass/Vol] 7.3 g/dL 6.4-8.2 [facility] Work Phone: Sodium [Moles/Vol] 137 mmol/L 136-145 [facility] Work Phone: WBC (Bld) [#/Vol] 6.5 10*3/uL 4.4-11.0 [facility] Work Phone: Blood erythrocytes count (nu mber/volume)Ordered By: Dr. Kulkarni on 03-30-2022 RBC (Bld) [#/Vol] 4.60 10*6/uL 4.2-5.4 [facility] Blood hemoglobin measurement (mass/volume)Ordered By: Dr. Kulkarni on 03-30-2022 Hemoglobin (Bld) [Mass/Vol] 13.0 g/dL 12.0-15.0 [facility] Blood lymphocytes/100 leukoc ytesOrdered By: Dr. uKlkarni on 03-30-2022 Lymphocytes/100 WBC (Bld) 23.1 % 19-41 [facility] Blood monocytes/100 leukocyt esOrdered By: Dr. Kulkarni on 03-30-2022 Monocytes/100 WBC (Bld) 7.5 % 0-10 [facility] Blood platelet mean volumeOr dered By: Dr. Kulkarni on 03-30-2022 Platelet mean volume (Bld) [Entitic vol] 10.5 fL 6.2-12.0 [facility] Determination of erythrocyte mean corpuscular volume (MCV)Ordered By: Dr. Kulkarni on 03-30-2022 MCV (RBC) [Entitic vol] 84.6 fL 81-99 [facility] Hematocrit Auto (Bld) [Volum e fraction]Ordered By: Dr. Kulkarni on 03-30-2022 Hematocrit (Bld) [Volume fraction] 38.9 % 37-47 [facility] Laboratory - Chemistry and C hemistry - challengeon 03-30-2022 ALP [Catalytic activity/Vol] 69 U/L 45-117 [facility] Work Phone: ALT [Catalytic activity/Vol] 31 U/L 13-56 [facility] Work Phone: CO2 [Moles/Vol] 27.0 mmol/L 21.0-32.0 [facility] Work Phone: Globulin (S) [Mass/Vol] 3.7 g/dL 2.2-4.2 [facility] Work Phone: Urea nitrogen/Creatinine [Mass ratio] 12.7 mg/mg 10-20 [facility] Work Phone: [phone] Bilirubin Ql (U) Negative [facility] Work Phone: [phone] Glucose Ql (U) Negative [facility] Work Phone: [phone] Ketones Ql (U) Negative [facility] Work Phone: [phone] pH (U) 6.5 [pH] [facility] Work Phone: [phone] Specific gravity (U) [Rel density] 1.025 [facility] Work Phone: [phone] Urobilinogen (U) [Mass/Vol] 0.9622457 mg/dL [facility] Work Phone: [phone] Laboratory - Hematology and Cell countson 03-30-2022 Erythrocyte distribution width (RBC) [Entitic vol] 37.9 fL 35.1-43.9 [facility] Work Phone: [phone] Erythrocyte distribution width (RBC) [Ratio] 12.5 % 11.6-14.6 [facility] Work Phone: [phone] Immature granulocytes/100 WBC (Bld) 0.300 % 0.0-0.9 [facility] Work Phone: [phone] Comment on above: IG% - Immature Granu locytes (promyelocytes, myelocytes and metamyelocytes) > 1% indicates that a LEFT SHIFT is Present. MCH (RBC) [Entitic mass] 28.3 pg 27.0-32.0 [facility] Work Phone: [phone] Nucleated RBC/100 WBC (Bld) [Ratio] 0 % 0-5 [facility] Work Phone: [phone] Hemoglobin Ql (U) Negative [facility] Work Phone: [phone] Laboratory - Specimen inform ationon 03-30-2022 Clarity (U) Clear [facility] Work Phone: [phone] Color (U) Yellow [facility] Work Phone: [phone] Laboratory - Urinalysison Nitrite Ql (U) Negative [facility] Work Phone: Protein Ql (U) Negative [facility] Work Phone: MCHC Auto (RBC) [Mass/Vol]Or dered By: Dr. Kulkarni on 03-30-2022 MCHC (RBC) [Mass/Vol] 33.4 g/dL 32-36 [facility] No Panel Informationon 03-30 Estimated Creatinine Clearance Calc 104.52 ml/min [facility] Work Phone: Estimated GFR (MDRD) Amer 121 mL/min >60 [facility] Work Phone: Comment on above: GFR Calc Estimated GFR (MDRD) Non-Af Amer 100 mL/min >60 [facility] Work Phone: Comment on above: Non- GFR Calc Urine Leukocytes Negve [facility] Work Phone: Yellow [facility] Clear [facility] Negative [facility] 1.025 [facility] 6.5 [facility] 0.2 mg/dL [facility] Negve [facility] No Panel InformationOrdered By: Dr. Kulkarni on 03-30-2022 28.3 pg 27.0-32.0 [facility] 12.5 % 11.6-14.6 [facility] 37.9 fl 35.1-43.9 [facility] 0.300 % 0.0-0.9 [facility] 0 % 0-5 [facility] 100 mL/min >60 [facility] 121 mL/min >60 [facility] 104.52 ml/min [facility] 12.7 RATIO 10-20 [facility] 3.7 g/dL 2.2-4.2 [facility] 69 U/L 45-117 [facility] 31 U/L 13-56 [facility] 27.0 mmol/L 21.0-32.0 [facility] Platelets bldOrdered By: Dr. Kulkarni on 03-30-2022 Platelets (Bld) [#/Vol] 243 10*3/uL 150-450 [facility] Serum or plasma albumin mg urement (mass/volume)Ordered By: Dr. Kulkarni on 03-30-2022 Albumin [Mass/Vol] 3.6 g/dL 3.2-5.0 [facility] Serum or plasma albumin/glob ulin mass ratioOrdered By: Dr. Kulkarni on 03-30-2022 Albumin/Globulin [Mass ratio] 1.0 {ratio} 0.9-2.4 [facility] Serum or plasma calcium mg urement (mass/volume)Ordered By: Dr. Kulkarni on 03-30-2022 Calcium [Mass/Vol] 9.1 mg/dL 8.5-10.1 [facility] Serum or plasma creatinine m easurement (mass/volume)Ordered By: Dr. Kulkarni on 03-30-2022 Creatinine [Mass/Vol] 0.71 mg/dL 0.55-1.02 [facility] Comment on above: The validity of the calculated GFR & GFRAA in patients over 70 years has not been determined. Clinical correlation is essential. Serum or plasma urea nitroge n measurement (mass/volume)Ordered By: Dr. Kulkarni on 03-30-2022 Urea nitrogen [Mass/Vol] 9 mg/dL 7-18 [facility] Thin prep Papanicolaou smear with manual screeningOrdered By: Dr. Kulkarni on 03-30-2022 Thin prep Papanicolaou smear with manual screening 17 U/L 15-37 [facility] Thin prep Papanicolaou smear with manual screening 5 5-15 [facility] Basophil percentageOrdered B y: Dr. Moore on 03-23-2022 Basophils (Bld) [#/Vol] 9.1 10*3/uL 4.4-11.0 [facility] Basophil percentageon 2021 WBC (Bld) [#/Vol] 9.1 10*3/uL 4.4-11.0 [facility] Work Phone: Blood erythrocytes count (nu mber/volume)Ordered By: Dr. Moore on 03-23-2022 RBC (Bld) [#/Vol] 4.74 10*6/uL 4.2-5.4 [facility] Blood hemoglobin measurement (mass/volume)Ordered By: Dr. Moore on 03-23-2022 Hemoglobin (Bld) [Mass/Vol] 13.4 g/dL 12.0-15.0 [facility] Blood platelet mean volumeOr dered By: Dr. Moore on 03-23-2022 Platelet mean volume (Bld) [Entitic vol] 10.6 fL 6.2-12.0 [facility] Determination of erythrocyte mean corpuscular volume (MCV)Ordered By: Dr. Moore on 03-23-2022 MCV (RBC) [Entitic vol] 84.8 fL 81-99 [facility] Glucose Glucometer (BldC) [M ass/Vol]Ordered By: Dr. Moore on 03-23-2022 Glucose [Mass/Vol] 142 mg/dL 74-106 [facility] Comment on above: MANAGEMENT OF PATIEN T CARE PER NURSING PROTOCOL Hematocrit Auto (Bld) [Volum e fraction]Ordered By: Dr. Moore on 03-23-2022 Hematocrit (Bld) [Volume fraction] 40.2 % 37-47 [facility] Laboratory - Hematology and Cell countson 03-23-2022 Erythrocyte distribution width (RBC) [Entitic vol] 38.3 fL 35.1-43.9 [facility] Work Phone: Erythrocyte distribution width (RBC) [Ratio] 12.4 % 11.6-14.6 [facility] Work Phone: MCH (RBC) [Entitic mass] 28.3 pg 27.0-32.0 [facility] Work Phone: MCHC Auto (RBC) [Mass/Vol]Or dered By: Dr. Moore on 03-23-2022 MCHC (RBC) [Mass/Vol] 33.3 g/dL 32-36 [facility] No Panel InformationOrdered By: Dr. Moore on 03-23-2022 28.3 pg 27.0-32.0 [facility] 12.4 % 11.6-14.6 [facility] 38.3 fl 35.1-43.9 [facility] Platelets bldOrdered By: Dr. Moore on 03-23-2022 Platelets (Bld) [#/Vol] 172 10*3/uL 150-450 [facility] Absolute lymphocyte countOrd ered By: Dr. Moore on 03-22-2022 Lymphocytes Auto (Unsp spec) [#/Vol] 0.61 10*3/uL 0.83-4.51 [facility] Basophil percentageOrdered B y: Dr. Moore on 03-22-2022 Basophils (Bld) [#/Vol] 10.2 10*3/uL 2.0-7.7 [facility] Basophils/100 WBC (Bld) 0.1 % 0-1 [facility] Basophils/100 WBC (Bld) 89.1 % 47-70 [facility] Basophils/100 WBC (Bld) 0.0 % 0-5 [facility] Basophil percentageon 2021 Eosinophils/100 WBC (Bld) 0.0 % 0-5 [facility] Work Phone: Neutrophils (Bld) [#/Vol] 10.2 10*3/uL 2.0-7.7 [facility] Work Phone: Neutrophils/100 WBC (Bld) 89.1 % 47-70 [facility] Work Phone: Blood lymphocytes/100 leukoc ytesOrdered By: Dr. Moore on 03-22-2022 Lymphocytes/100 WBC (Bld) 5.3 % 19-41 [facility] Blood monocytes/100 leukocyt esOrdered By: Dr. Moore on 03-22-2022 Monocytes/100 WBC (Bld) 5.1 % 0-10 [facility] Laboratory - Chemistry and C hemistry - challengeon 03-22-2022 HCG ( test) Ql (U) Negative [facility] Work Phone: Comment on above: Very dilute urine sp ecimens, as indicated by a low specificgravity, may not contain software support representative levels of hCG. If is still suspected, a first morning urinespecimen should be collected 48 hours later and tested. Laboratory - Hematology and Cell countson 03-22-2022 Immature granulocytes/100 WBC (Bld) 0.400 % 0.0-0.9 [facility] Work Phone: Comment on above: IG% - Immature Granu locytes (promyelocytes, myelocytes and metamyelocytes) > 1% indicates that a LEFT SHIFT is Present. Nucleated RBC/100 WBC (Bld) [Ratio] 0 % 0-5 [facility] Work Phone: No Panel InformationOrdered By: Dr. Moore on 03-22-2022 0.400 % 0.0-0.9 [facility] 0 % 0-5 [facility] No Panel InformationOrdered By: Dr. Curry on 03-22-2022 Negative [facility] Absolute lymphocyte countOrd ered By: Dr. Melgar on 03-04-2022 Lymphocytes Auto (Unsp spec) [#/Vol] 1.33 10*3/uL 0.83-4.51 [facility] Basophil percentageOrdered B y: Dr. Melgar on 03-04-2022 Basophil percentage 87 mg/dL 74-106 [facility] Basophil percentage 139 mmol/L 136-145 [facility] Basophil percentage 4.0 mmol/L 3.5-5.1 [facility] Basophil percentage 107 mmol/L 98-107 [facility] Basophils (Bld) [#/Vol] 5.5 10*3/uL 4.4-11.0 [facility] Basophils (Bld) [#/Vol] 3.4 10*3/uL 2.0-7.7 [facility] Basophils/100 WBC (Bld) 0.5 % 0-1 [facility] Basophils/100 WBC (Bld) 61.9 % 47-70 [facility] Basophils/100 WBC (Bld) 3.5 % 0-5 [facility] Basophil percentageon 2021 Chloride [Moles/Vol] 107 mmol/L 98-107 [facility] Work Phone: Eosinophils/100 WBC (Bld) 3.5 % 0-5 [facility] Work Phone: Glucose [Mass/Vol] 87 mg/dL 74-106 [facility] Work Phone: Neutrophils (Bld) [#/Vol] 3.4 10*3/uL 2.0-7.7 [facility] Work Phone: Neutrophils/100 WBC (Bld) 61.9 % 47-70 [facility] Work Phone: Potassium [Moles/Vol] 4.0 mmol/L 3.5-5.1 [facility] Work Phone: Sodium [Moles/Vol] 139 mmol/L 136-145 [facility] Work Phone: WBC (Bld) [#/Vol] 5.5 10*3/uL 4.4-11.0 [facility] Work Phone: Blood erythrocytes count (nu mber/volume)Ordered By: Dr. Melgar on 03-04-2022 RBC (Bld) [#/Vol] 5.22 10*6/uL 4.2-5.4 [facility] Blood hemoglobin measurement (mass/volume)Ordered By: Dr. Melgar on 03-04-2022 Hemoglobin (Bld) [Mass/Vol] 15.2 g/dL 12.0-15.0 [facility] Blood lymphocytes/100 leukoc ytesOrdered By: Dr. Melgar on 03-04-2022 Lymphocytes/100 WBC (Bld) 24.4 % 19-41 [facility] Blood monocytes/100 leukocyt esOrdered By: Dr. Melgar on 03-04-2022 Monocytes/100 WBC (Bld) 9.5 % 0-10 [facility] Blood platelet mean volumeOr dered By: Dr. Melgar on 03-04-2022 Platelet mean volume (Bld) [Entitic vol] 11.1 fL 6.2-12.0 [facility] Determination of erythrocyte mean corpuscular volume (MCV)Ordered By: Dr. Melgar on 03-04-2022 MCV (RBC) [Entitic vol] 87.0 fL 81-99 [facility] Hematocrit Auto (Bld) [Volum e fraction]Ordered By: Dr. Melgar on 03-04-2022 Hematocrit (Bld) [Volume fraction] 45.4 % 37-47 [facility] Laboratory - Chemistry and C hemistry - challengeon 03-04-2022 CO2 [Moles/Vol] 27.0 mmol/L 21.0-32.0 [facility] Work Phone: Urea nitrogen/Creatinine [Mass ratio] 12.2 mg/mg 10-20 [facility] Work Phone: [phone] Laboratory - Hematology and Cell countson 03-04-2022 Erythrocyte distribution width (RBC) [Entitic vol] 39.7 fL 35.1-43.9 [facility] Work Phone: [phone] Erythrocyte distribution width (RBC) [Ratio] 12.5 % 11.6-14.6 [facility] Work Phone: [phone] Immature granulocytes/100 WBC (Bld) 0.200 % 0.0-0.9 [facility] Work Phone: [phone] Comment on above: IG% - Immature Granu locytes (promyelocytes, myelocytes and metamyelocytes) > 1% indicates that a LEFT SHIFT is Present. MCH (RBC) [Entitic mass] 29.1 pg 27.0-32.0 [facility] Work Phone: Nucleated RBC/100 WBC (Bld) [Ratio] 0 % 0-5 [facility] Work Phone: MCHC Auto (RBC) [Mass/Vol]Or dered By: Dr. Melgar on 03-04-2022 MCHC (RBC) [Mass/Vol] 33.5 g/dL 32-36 [facility] No Panel Informationon 03-04 Estimated Creatinine Clearance Calc 86.99 ml/min [facility] Work Phone: [phone] Estimated GFR (MDRD) Amer 102 mL/min >60 [facility] Work Phone: [phone] Comment on above: GFR Calc Estimated GFR (MDRD) Non-Af Amer 84 mL/min >60 [facility] Work Phone: [phone] Comment on above: Non- GFR Calc No Panel InformationOrdered By: Dr. Melgar on 03-04-2022 29.1 pg 27.0-32.0 [facility] 12.5 % 11.6-14.6 [facility] 39.7 fl 35.1-43.9 [facility] 0.200 % 0.0-0.9 [facility] 0 % 0-5 [facility] 84 mL/min >60 [facility] 102 mL/min >60 [facility] 86.99 ml/min [facility] 12.2 RATIO 10-20 [facility] 27.0 mmol/L 21.0-32.0 [facility] Platelets bldOrdered By: Dr. Melgar on 03-04-2022 Platelets (Bld) [#/Vol] 182 10*3/uL 150-450 [facility] Serum or plasma calcium mg urement (mass/volume)Ordered By: Dr. Melgar on 03-04-2022 Calcium [Mass/Vol] 9.1 mg/dL 8.5-10.1 [facility] Serum or plasma creatinine m easurement (mass/volume)Ordered By: Dr. Melgar on 03-04-2022 Creatinine [Mass/Vol] 0.82 mg/dL 0.55-1.02 [facility] Comment on above: The validity of the calculated GFR & GFRAA in patients over 70 years has not been determined. Clinical correlation is essential. Serum or plasma urea nitroge n measurement (mass/volume)Ordered By: Dr. Melgar on 03-04-2022 Urea nitrogen [Mass/Vol] 10 mg/dL 7-18 [facility] Thin prep Papanicolaou smear with manual screeningOrdered By: Dr. Melgar on 03-04-2022 Thin prep Papanicolaou smear with manual screening 5 5-15 [facility] Laboratory - Chemistry and C hemistry - challengeon 03-02-2022 Magnesium [Mass/Vol] 1.8 mg/dL 1.6-2.6 [facility] Work Phone: No Panel InformationOrdered By: Dr. Garcia on 03-02-2022 1.8 mg/dL 1.6-2.6 [facility] Bacteria identified Cx Nom ( U)Ordered By: Dr. Moore on 02-16-2022 Culture, urine Positive [facility] Absolute lymphocyte countOrd ered By: Dr. Moore on 02-15-2022 Lymphocytes Auto (Unsp spec) [#/Vol] 1.31 10*3/uL 0.83-4.51 [facility] Basophil percentageOrdered B y: Dr. Guzman on 02-15-2022 Basophil percentage 0-5 SEEN /hpf 0-5 [facility] Basophil percentageOrdered B y: Dr. Moore on 02-15-2022 Basophil percentage 101 mg/dL 74-106 [facility] Basophil percentage 7.3 g/dL 6.4-8.2 [facility] Basophil percentage 0.40 mg/dL 0.20-1.00 [facility] Basophil percentage 140 mmol/L 136-145 [facility] Basophil percentage 4.2 mmol/L 3.5-5.1 [facility] Basophil percentage 108 mmol/L 98-107 [facility] Basophils (Bld) [#/Vol] 4.7 10*3/uL 4.4-11.0 [facility] Basophils (Bld) [#/Vol] 2.7 10*3/uL 2.0-7.7 [facility] Basophils/100 WBC (Bld) 0.6 % 0-1 [facility] Basophils/100 WBC (Bld) 57.4 % 47-70 [facility] Basophils/100 WBC (Bld) 3.6 % 0-5 [facility] Basophil percentageon 2021 Bilirubin [Mass/Vol] 0.40 mg/dL 0.20-1.00 [facility] Work Phone: Comment on above: For patients on eltr ombopag therapy, use of Dimension Pruden TBIL is not recommended. Chloride [Moles/Vol] 108 mmol/L 98-107 [facility] Work Phone: Eosinophils/100 WBC (Bld) 3.6 % 0-5 [facility] Work Phone: Glucose [Mass/Vol] 101 mg/dL 74-106 [facility] Work Phone: Comment on above: Fasting Glucose resu lt from 100 to 125 mg/dL suggests IMPAIRED HOMEOSTASIS per A.D.A. criteria. Neutrophils (Bld) [#/Vol] 2.7 10*3/uL 2.0-7.7 [facility] Work Phone: Neutrophils/100 WBC (Bld) 57.4 % 47-70 [facility] Work Phone: Potassium [Moles/Vol] 4.2 mmol/L 3.5-5.1 [facility] Work Phone: Protein [Mass/Vol] 7.3 g/dL 6.4-8.2 [facility] Work Phone: Sodium [Moles/Vol] 140 mmol/L 136-145 [facility] Work Phone: WBC (Bld) [#/Vol] 4.7 10*3/uL 4.4-11.0 [facility] Work Phone: Bilirubin Test strip Ql (U)O rdered By: Dr. Guzman on 02-15-2022 Bilirubin Ql (U) Negative Negative [facility] Blood erythrocytes count (nu mber/volume)Ordered By: Dr. Moore on 02-15-2022 RBC (Bld) [#/Vol] 4.94 10*6/uL 4.2-5.4 [facility] Blood hemoglobin measurement (mass/volume)Ordered By: Dr. Moore on 02-15-2022 Hemoglobin (Bld) [Mass/Vol] 13.9 g/dL 12.0-15.0 [facility] Blood lymphocytes/100 leukoc ytesOrdered By: Dr. Moore on 02-15-2022 Lymphocytes/100 WBC (Bld) 28.1 % 19-41 [facility] Blood monocytes/100 leukocyt esOrdered By: Dr. Moore on 02-15-2022 Monocytes/100 WBC (Bld) 10.1 % 0-10 [facility] Blood platelet mean volumeOr dered By: Dr. Moore on 02-15-2022 Platelet mean volume (Bld) [Entitic vol] 11.0 fL 6.2-12.0 [facility] Determination of erythrocyte mean corpuscular volume (MCV)Ordered By: Dr. Moore on 02-15-2022 MCV (RBC) [Entitic vol] 87.4 fL 81-99 [facility] Hematocrit Auto (Bld) [Volum e fraction]Ordered By: Dr. Moore on 02-15-2022 Hematocrit (Bld) [Volume fraction] 43.2 % 37-47 [facility] Ketones Test strip Ql (U)Ord ered By: Dr. Guzman on 02-15-2022 Ketones Ql (U) Negative Negative [facility] Laboratory - Chemistry and C hemistry - challengeon 02-15-2022 HCG ( test) Ql (U) Negative [facility] Work Phone: Comment on above: Very dilute urine sp ecimens, as indicated by a low specificgravity, may not contain software support representative levels of hCG. If is still suspected, a first morning urinespecimen should be collected 48 hours later and tested. ALP [Catalytic activity/Vol] 62 U/L 45-117 [facility] Work Phone: ALT [Catalytic activity/Vol] 21 U/L 13-56 [facility] Work Phone: [phone] CO2 [Moles/Vol] 29.0 mmol/L 21.0-32.0 [facility] Work Phone: [phone] Globulin (S) [Mass/Vol] 3.5 g/dL 2.2-4.2 [facility] Work Phone: [phone] Urea nitrogen/Creatinine [Mass ratio] 10.7 mg/mg 10-20 [facility] Work Phone: [phone] Laboratory - Hematology and Cell countson 02-15-2022 Erythrocyte distribution width (RBC) [Entitic vol] 40.2 fL 35.1-43.9 [facility] Work Phone: [phone] Erythrocyte distribution width (RBC) [Ratio] 12.6 % 11.6-14.6 [facility] Work Phone: [phone] Immature granulocytes/100 WBC (Bld) 0.200 % 0.0-0.9 [facility] Work Phone: [phone] Comment on above: IG% - Immature Granu locytes (promyelocytes, myelocytes and metamyelocytes) > 1% indicates that a LEFT SHIFT is Present. MCH (RBC) [Entitic mass] 28.1 pg 27.0-32.0 [facility] Work Phone: Nucleated RBC/100 WBC (Bld) [Ratio] 0 % 0-5 [facility] Work Phone: MCHC Auto (RBC) [Mass/Vol]Or dered By: Dr. Moore on 02-15-2022 MCHC (RBC) [Mass/Vol] 32.2 g/dL 32-36 [facility] Mucus LM Ql (Urine sed)Order ed By: Dr. Guzman on 02-15-2022 Mucus Ql (Urine sed) 0 SEEN /hpf [facility] Nitrite Test strip Ql (U)Ord ered By: Dr. Guzman on 02-15-2022 Nitrite Ql (U) Negative Negative [facility] No Panel InformationOrdered By: Dr. Guzman on 02-15-2022 Negative [facility] No Panel Informationon 02-15 Estimated GFR (MDRD) Amer 114 mL/min >60 [facility] Work Phone: Comment on above: GFR Calc Estimated GFR (MDRD) Non-Af Amer 94 mL/min >60 [facility] Work Phone: Comment on above: Non- GFR Calc Thyroid Stimulating Hormone (TSH) 0.62 uIU/mL 0.358-3.74 [facility] Work Phone: No Panel InformationOrdered By: Dr. Moore on 02-15-2022 28.1 pg 27.0-32.0 [facility] 12.6 % 11.6-14.6 [facility] 40.2 fl 35.1-43.9 [facility] 0.200 % 0.0-0.9 [facility] 0 % 0-5 [facility] 94 mL/min >60 [facility] 114 mL/min >60 [facility] 10.7 RATIO 10-20 [facility] 3.5 g/dL 2.2-4.2 [facility] 62 U/L 45-117 [facility] 21 U/L 13-56 [facility] 29.0 mmol/L 21.0-32.0 [facility] 0.62 uIU/mL 0.358-3.74 [facility] Platelets bldOrdered By: Dr. Moore on 02-15-2022 Platelets (Bld) [#/Vol] 175 10*3/uL 150-450 [facility] Protein Test strip Ql (U)Ord ered By: Dr. Guzman on 02-15-2022 Protein Ql (U) Negative Negative [facility] Serum or plasma albumin mg urement (mass/volume)Ordered By: Dr. Moore on 02-15-2022 Albumin [Mass/Vol] 3.8 g/dL 3.2-5.0 [facility] Serum or plasma albumin/glob ulin mass ratioOrdered By: Dr. Moore on 02-15-2022 Albumin/Globulin [Mass ratio] 1.1 {ratio} 0.9-2.4 [facility] Serum or plasma calcium mg urement (mass/volume)Ordered By: Dr. oMore on 02-15-2022 Calcium [Mass/Vol] 9.1 mg/dL 8.5-10.1 [facility] Serum or plasma creatinine m easurement (mass/volume)Ordered By: Dr. Moore on 02-15-2022 Creatinine [Mass/Vol] 0.75 mg/dL 0.55-1.02 [facility] Comment on above: The validity of the calculated GFR & GFRAA in patients over 70 years has not been determined. Clinical correlation is essential. Serum or plasma urea nitroge n measurement (mass/volume)Ordered By: Dr. Moore on 02-15-2022 Urea nitrogen [Mass/Vol] 8 mg/dL 7-18 [facility] Squamous epithelial cells de tection in urine sediment by light microscopyOrdered By: Dr. Guzman on 02-15-2022 Epithelial cells.squamous LM Ql (Urine sed) 5-10 SEEN /hpf 5-10 [facility] Thin prep Papanicolaou smear with manual screeningOrdered By: Dr. Moore on 02-15-2022 Thin prep Papanicolaou smear with manual screening 11 U/L 15-37 [facility] Thin prep Papanicolaou smear with manual screening 3 5-15 [facility] Urine blood detectionOrdered By: Dr. Guzman on 02-15-2022 RBC Ql (U) Negative Negative [facility] RBC Ql (U) 0 SEEN /hpf 0-5 [facility] Urine clarityOrdered By: Dr. Guzman on 02-15-2022 Clarity (U) Sl. Cloudy Clear [facility] Urine color determinationOrd ered By: Dr. Guzman on 02-15-2022 Color (U) Yellow Yellow [facility] Urine glucose detectionOrder ed By: Dr. Guzman on 02-15-2022 Glucose Ql (U) Normal mg/dl Normal [facility] Urine leukocyte esterase det ection by dipstickOrdered By: Dr. Guzman on 02-15-2022 Leukocyte esterase Test strip Ql (U) 25 /ul Negative [facility] Urine pHOrdered By: Dr. Guzman o n 02-15-2022 pH (U) 6.0 [pH] 5.0 - 8.0 [facility] Urine sediment bacteria coun t by microscopy (number/high power field)Ordered By: Dr. Guzman on 02-15-2022 Bacteria LM.HPF (Urine sed) [#/Area] 1 /[HPF] None Seen [facility] Urine specific gravity measu rementOrdered By: Dr. Guzman on 02-15-2022 Specific gravity (U) [Rel density] 1.015 1.002-1.030 [facility] Urobilinogen Auto test strip Ql (U)Ordered By: Dr. Guzman on 02-15-2022 Urobilinogen Ql (U) Normal mg/dl Normal [facility] Whole blood hemoglobin A1c/t otal hemoglobin ratio (mass fraction)Ordered By: Dr. Moore on 02-15-2022 HbA1c (Bld) [Mass fraction] 5.5 % 3.8-5.6 [facility] Comment on above: Normal < 5.7 % Predi abetic 5.7 - 6.4 % Diabetic >or= 6.5 % Please note range changes. Atypical perinuclear antineu trophil cytoplasmic antibodies measurementon 01-13-2022 Neutrophil cytoplasmic Ab.perinuclear.atypical IF (S) [Titer] <1:20 titer Neg:<1:20 [facility] Work Phone: Comment on above: The atypical pANCA p attern has been observed in asignificant percentage of patients with ulcerative colitis,primary sclerosing cholangitis and autoimmune hepatitis. Basophil percentageon 2021 Ammonia (P) [Moles/Vol] 15.0 umol/L 11-32 [facility] Work Phone: Basophil percentage < 0.2 AI 0.0-0.9 [facility] Work Phone: [phone] Cholesterol [Mass/Vol] 220 mg/dL <200 [facility] Work Phone: Comment on above: <200 mg/dL Desirable 200-240 mg/dL Borderline >240 mg/dL High Risk Triglyceride [Mass/Vol] 175 mg/dL <199 [facility] Work Phone: Comment on above: The drugs N-Acetylcy steine and Metamizole may falsely depress this assay.Serum Triglycerides Reference Interval Normal <150 mg/dL Borderline high 150 - 199 mg/dL High 200 - 499 mg/dL Very High > or = 500 mg/dL Erythrocyte sedimentation ra funmi 01-13-2022 ESR (Bld) [Velocity] 6 mm/h 0-30 [facility] Work Phone: HIV 1 and HIV-2 antibody ass ay with HIV-1 p24 antigen detectionon 01-13-2022 HIV 1+2 Ab+HIV1 p24 Ag IA Ql Non-Reactive Nonreactive [facility] Work Phone: INR in Blood by Coagulation assayon 01-13-2022 INR Coag (Bld) [Relative time] 1.0 {INR} [facility] Work Phone: Laboratory - Coagulationon 0 01-13-2022 PT Coag (PPP) [Time] 12.6 s 11.7-14.9 [facility] Work Phone: No Panel Informationon 01-13 Centromere B Antibody <0.2 AI 0.0-0.9 [facility] Work Phone: [phone] Ceruloplasmin 22.7 mg/dL 19.0-39.0 [facility] Work Phone: Haptoglobin 142 mg/dL 33-278 [facility] Work Phone: [phone] Comment on above: Performed at: [address] [id number] Director: Viraj Sandoval PhD, Phone: [phone] at: [facility] [id number] Director: Emily Bacon MD, Phone: [phone] Hepatitis A IgM Antibody Negative Negative [facility] Work Phone: [phone] Hepatitis B Core IgM Antibody Negative Negative [facility] Work Phone: [phone] Hepatitis C Antibody (EIA) <0.1 s/co ratio 0.0-0.9 [facility] Work Phone: Hepatitis C Antibody Comment Comment . [facility] Work Phone: Comment on above: NegativeNot infected with HCV, unless recent infection issuspected or other evidence exists to indicate HCVinfection. [employer] Antibody 0.3 AI 0.0-0.9 [facility] Work Phone: Thyroid Stimulating Hormone (TSH) 0.59 uIU/mL 0.358-3.74 [facility] Work Phone: [phone] Serum DNA double strand anti body assay (units/volume)on 01-13-2022 DNA double strand Ab Qn (S) 1 [IU]/mL 0-9 [facility] Work Phone: [phone] Comment on above: Negative <5 Equivoca l 5 - 9 Positive >9 Serum Alise-1 antibody assay (u nits/volume)on 01-13-2022 Alise-1 extractable nuclear Ab Qn (S) <0.2 AI 0.0-0.9 [facility] Work Phone: [phone] Serum Scl-70 extractable nuc lear antibody assay (units/volume)on 01-13-2022 SCL-70 extractable nuclear Ab Qn (S) <0.2 AI 0.0-0.9 [facility] Work Phone: Serum Freedman extractable nucl ear antibody detectionon 01-13-2022 Freedman extractable nuclear Ab Ql (S) <0.2 AI 0.0-0.9 [facility] Work Phone: Serum classic neutrophil cyt oplasmic antibody assay (units/volume)on 01-13-2022 Neutrophil cytoplasmic Ab.classic Qn (S) <1:20 titer Neg:<1:20 [facility] Work Phone: Serum mitochondria antibody detectionon 01-13-2022 Mitochondria Ab Ql (S) <20.0 Units 0.0-20.0 [facility] Work Phone: Comment on above: Negative 0.0 - 20.0 Equivocal 20.1 - 24.9 Positive >24.9Mitochondrial (M2) Antibodies are found in 90-96% ofpatients with primary biliary cirrhosis.Performed at: [facility] [place] [id number] Director: Viraj Sandoval PhD, Phone: [phone] Serum or plasma C reactive p rotein measurement (mass/volume)on 01-13-2022 CRP [Mass/Vol] mg/L 0.0-3.0 [facility] Work Phone: Comment on above: C-Reactive Protein ( CRP) provides useful information for thediagnosis, therapy and monitoring of inflammatory processesand associated diseases. For the evaluation of Relative Riskfor Cardiovascular Disease, a High Sensitivity CRP (HSCRP)should be ordered. Serum or plasma actin IgG an tibody assay (units/volume)on 01-13-2022 Actin IgG Qn 5 Units 0-19 [facility] Work Phone: Comment on above: Negative 0 - 19 Weak positive 20 - 30 Moderate to strong positive >30 Actin Antibodies are found in 52-85% of patients with autoimmune hepatitis or chronic active hepatitis and in 22% of patients with primary biliary cirrhosis. Serum or plasma iwdgy-1-dlsv protein tumor marker measurement (units/volume)on 01-13-2022 AFP.tumor marker Qn 2.5 ng/mL 0.0-6.4 [facility] Work Phone: Comment on above: [employer] El ectrochemiluminescence Immunoassay(ECLIA)Values obtained with different assay methods or kits cannotbe used interchangeably. Results cannot be interpreted asabsolute evidence of the presence or absence of malignantdisease.This test is not interpretable in females. Serum or plasma angiotensin converting enzyme measurement (enzymatic activity/volume)on 01-13-2022 Angiotensin converting enzyme [Catalytic activity/Vol] 24 U/L 14-82 [facility] Work Phone: [phone] Serum or plasma cholesterol in HDL measurement (mass/volume)on 01-13-2022 Cholesterol in HDL [Mass/Vol] 42 mg/dL >40 [facility] Work Phone: [phone] Comment on above: The drugs N-Acetylcy steine and Metamizole may falsely depress this assay. Reference Range HDL <40 mg/dL Low HDL Cholesterol HDL >or= 60 mg/dL High HDL Cholesterol Serum or plasma cholesterol in VLDL measurement (mass/volume)on 01-13-2022 Cholesterol in VLDL [Mass/Vol] 35 mg/dL 5-40 [facility] Work Phone: [phone] Serum or plasma ferritin adriana surement (mass/volume)on 01-13-2022 Ferritin [Mass/Vol] 19 ng/mL 8-252 [facility] Work Phone: [phone] Serum or plasma hepatitis B virus surface antigen detection by immunoassayon 01-13-2022 HBV surface Ag IA Ql Negative Negative [facility] Work Phone: [phone] Serum or plasma low density lipoprotein (LDL) cholesterol measurement (mass/volume)on 01-13-2022 Cholesterol in LDL [Mass/Vol] 143 mg/dL 0-130 [facility] Work Phone: [phone] Serum perinuclear neutrophil cytoplasmic antibody titer by immunofluorescenceon 01-13-2022 Neutrophil cytoplasmic Ab.perinuclear IF (S) [Titer] <1:20 titer Neg:<1:20 [facility] Work Phone: Comment on above: The presence of posi tive fluorescence exhibiting P-ANCA orC-ANCA patterns alone is not specific for the diagnosis ofWegener's Granulomatosis (WG) or microscopic polyangiitis.Decisions about treatment should not be based solely onANCA IFA results. The [employer] AN[employer] Consensusrecommends follow up testing of positive sera with both OH-3 and MPO-ANCA enzyme immunoassays. As many as 5% serumsamples are positive only by EIA. Ref. AM J Clin Hokbri0823;111:507-513. Thin prep Papanicolaou smear with manual screeningon 01-13-2022 Thin prep Papanicolaou smear with manual screening 164 U/L 84-246 [facility] Work Phone: Thin prep Papanicolaou smear with manual screening 109 ug/dL 80-158 [facility] Work Phone: Comment on above: Detection Limit = 5 Whole blood hemoglobin A1c/t otal hemoglobin ratio (mass fraction)on 01-13-2022 HbA1c (Bld) [Mass fraction] 5.4 % 3.8-5.6 [facility] Work Phone: Comment on above: Normal < 5.7 % Predi abetic 5.7 - 6.4 % Diabetic >or= 6.5 % Please note range changes. No Panel Informationon 01-03 Stool Neutral Fats Normal . [facility] Work Phone: Comment on above: Normal (<60 Droplets /HPF) Stool Pancreatic Elastase > 500 >200 [facility] Work Phone: Comment on above: Result Units: ug Pooja st./g Severe Pancreatic Insufficiency: <100 Moderate Pancreatic Insufficiency: 100 - 200 Normal: >200Performed at: [facility] [address] [id number] Director: Emily Bacon MD, Phone: [phone] Qualitative fecal fat or lip idson 01-03-2022 Fat Ql (Stl) Normal . [facility] Work Phone: Comment on above: Normal (<100 Droplet s/HPF)Performed at: [facility] [address] [id number] Director: Viraj Sandoval PhD, Phone: [phone] Absolute lymphocyte counton 12-23-2021 Lymphocytes Auto (Unsp spec) [#/Vol] 2.19 10*3/uL 0.83-4.51 [facility] Work Phone: Basophil percentageon 2021 Basophils/100 WBC (Bld) 0.5 % 0-1 [facility] Work Phone: Bilirubin [Mass/Vol] 0.30 mg/dL 0.20-1.00 [facility] Work Phone: Comment on above: For patients on eltr ombopag therapy, use of Dimension Pruden TBIL is not recommended. Chloride [Moles/Vol] 106 mmol/L 98-107 [facility] Work Phone: Eosinophils/100 WBC (Bld) 4.8 % 0-5 [facility] Work Phone: Glucose [Mass/Vol] 111 mg/dL 74-106 [facility] Work Phone: Comment on above: Fasting Glucose resu lt from 100 to 125 mg/dL suggests IMPAIRED HOMEOSTASIS per A.D.A. criteria. Neutrophils (Bld) [#/Vol] 3.0 10*3/uL 2.0-7.7 [facility] Work Phone: Neutrophils/100 WBC (Bld) 49.1 % 47-70 [facility] Work Phone: Potassium [Moles/Vol] 3.5 mmol/L 3.5-5.1 [facility] Work Phone: Protein [Mass/Vol] 7.5 g/dL 6.4-8.2 [facility] Work Phone: Sodium [Moles/Vol] 138 mmol/L 136-145 [facility] Work Phone: WBC (Bld) [#/Vol] 6.1 10*3/uL 4.4-11.0 [facility] Work Phone: Basophil percentage 0-5 SEEN /hpf 0-5 [facility] Work Phone: Beta hCG serum qualon 2021 Beta HCG ( test) Ql Negative [facility] Work Phone: Bilirubin Test strip Ql (U)o n 12-23-2021 Bilirubin Ql (U) Negative Negative [facility] Work Phone: Blood erythrocytes count (nu mber/volume)on 12-23-2021 RBC (Bld) [#/Vol] 4.87 10*6/uL 4.2-5.4 [facility] Work Phone: Blood hemoglobin measurement (mass/volume)on 12-23-2021 Hemoglobin (Bld) [Mass/Vol] 13.7 g/dL 12.0-15.0 [facility] Work Phone: Blood lymphocytes/100 leukoc yteson 12-23-2021 Lymphocytes/100 WBC (Bld) 36.1 % 19-41 [facility] Work Phone: Blood monocytes/100 leukocyt eson 12-23-2021 Monocytes/100 WBC (Bld) 9.2 % 0-10 [facility] Work Phone: Blood platelet mean volumeon 12-23-2021 Platelet mean volume (Bld) [Entitic vol] 11.1 fL 6.2-12.0 [facility] Work Phone: Determination of erythrocyte mean corpuscular volume (MCV)on 12-23-2021 MCV (RBC) [Entitic vol] 87.5 fL 81-99 [facility] Work Phone: Hematocrit Auto (Bld) [Volum e fraction]on 12-23-2021 Hematocrit (Bld) [Volume fraction] 42.6 % 37-47 [facility] Work Phone: Ketones Test strip Ql (U)on 12-23-2021 Ketones Ql (U) Negative Negative [facility] Work Phone: Laboratory - Chemistry and C hemistry - challengeon 12-23-2021 ALP [Catalytic activity/Vol] 54 U/L 45-117 [facility] Work Phone: ALT [Catalytic activity/Vol] 19 U/L 13-56 [facility] Work Phone: [phone] CO2 [Moles/Vol] 27.0 mmol/L 21.0-32.0 [facility] Work Phone: [phone] Globulin (S) [Mass/Vol] 3.6 g/dL 2.2-4.2 [facility] Work Phone: [phone] Lipase [Catalytic activity/Vol] 98 U/L 73-393 [facility] Work Phone: [phone] Urea nitrogen/Creatinine [Mass ratio] 11.9 mg/mg 10-20 [facility] Work Phone: [phone] Laboratory - Hematology and Cell countson 12-23-2021 Erythrocyte distribution width (RBC) [Entitic vol] 42.2 fL 35.1-43.9 [facility] Work Phone: [phone] Erythrocyte distribution width (RBC) [Ratio] 13.3 % 11.6-14.6 [facility] Work Phone: [phone] Immature granulocytes/100 WBC (Bld) 0.300 % 0.0-0.9 [facility] Work Phone: [phone] Comment on above: IG% - Immature Granu locytes (promyelocytes, myelocytes and metamyelocytes) > 1% indicates that a LEFT SHIFT is Present. MCH (RBC) [Entitic mass] 28.1 pg 27.0-32.0 [facility] Work Phone: [phone] Nucleated RBC/100 WBC (Bld) [Ratio] 0 % 0-5 [facility] Work Phone: [phone] MCHC Auto (RBC) [Mass/Vol]on 12-23-2021 MCHC (RBC) [Mass/Vol] 32.2 g/dL 32-36 [facility] Work Phone: [phone] Mucus LM Ql (Urine sed)on Mucus Ql (Urine sed) 0 SEEN /hpf [facility] Work Phone: [phone] Nitrite Test strip Ql (U)on 12-23-2021 Nitrite Ql (U) Negative Negative [facility] Work Phone: [phone] Panel Informationon 12-23 Estimated Creatinine Clearance Calc 88.34 ml/min [facility] Work Phone: [phone] Estimated GFR (MDRD) Amer 100 mL/min >60 [facility] Work Phone: [phone] Comment on above: GFR Calc Estimated GFR (MDRD) Non-Af Amer 83 mL/min >60 [facility] Work Phone: [phone] Comment on above: Non- GFR Calc Platelets bldon 12-23-2021 Platelets (Bld) [#/Vol] 184 10*3/uL 150-450 [facility] Work Phone: [phone] Protein Test strip Ql (U)on 12-23-2021 Protein Ql (U) Negative Negative [facility] Work Phone: [phone] Serum or plasma albumin mg urement (mass/volume)on 12-23-2021 Albumin [Mass/Vol] 3.9 g/dL 3.2-5.0 [facility] Work Phone: [phone] Serum or plasma albumin/glob ulin mass ratioon 12-23-2021 Albumin/Globulin [Mass ratio] 1.1 {ratio} 0.9-2.4 [facility] Work Phone: [phone] Serum or plasma calcium mg urement (mass/volume)on 12-23-2021 Calcium [Mass/Vol] 9.2 mg/dL 8.5-10.1 [facility] Work Phone: [phone] Serum or plasma creatinine m easurement (mass/volume)on 12-23-2021 Creatinine [Mass/Vol] 0.84 mg/dL 0.55-1.02 [facility] Work Phone: [phone] Comment on above: The validity of the calculated GFR & GFRAA in patients over 70 years has not been determined. Clinical correlation is essential. Serum or plasma urea nitroge n measurement (mass/volume)on 12-23-2021 Urea nitrogen [Mass/Vol] 10 mg/dL 7-18 [facility] Work Phone: [phone] Squamous epithelial cells de tection in urine sediment by light microscopyon 12-23-2021 Epithelial cells.squamous LM Ql (Urine sed) 0-5 SEEN /hpf 5-10 [facility] Work Phone: Thin prep Papanicolaou smear with manual screeningon 12-23-2021 Thin prep Papanicolaou smear with manual screening 11 U/L 15-37 [facility] Work Phone: Thin prep Papanicolaou smear with manual screening 5 5-15 [facility] Work Phone: Urine blood detectionon 08-0 RBC Ql (U) Negative Negative [facility] Work Phone: RBC Ql (U) 0-5 SEEN /hpf 0-5 [facility] Work Phone: Urine clarityon 12-23-2021 Clarity (U) Clear Clear [facility] Work Phone: Urine color determinationon 12-23-2021 Color (U) Yellow Yellow [facility] Work Phone: Urine glucose detectionon Glucose Ql (U) Normal mg/dl Normal [facility] Work Phone: Urine leukocyte esterase det ection by dipstickon 12-23-2021 Leukocyte esterase Test strip Ql (U) Negative Negative [facility] [facility] Work Phone: Urine pHon 12-23-2021 pH (U) 6.0 [pH] 5.0 - 8.0 [facility] Work Phone: Urine sediment bacteria coun t by microscopy (number/high power field)on 12-23-2021 Bacteria LM.HPF (Urine sed) [#/Area] 1 /[HPF] None Seen [facility] Work Phone: Urine specific gravity measu rementon 12-23-2021 Specific gravity (U) [Rel density] 1.020 1.002-1.030 [facility] Work Phone: Urobilinogen Auto test strip Ql (U)on 12-23-2021 Urobilinogen Ql (U) Normal mg/dl Normal [facility] Work Phone: Absolute lymphocyte counton 11-27-2021 Lymphocytes Auto (Unsp spec) [#/Vol] 1.49 10*3/uL 0.83-4.51 [facility] Work Phone: Basophil percentageon 2021 Basophils/100 WBC (Bld) 0.3 % 0-1 [facility] Work Phone: Chloride [Moles/Vol] 105 mmol/L 98-107 [facility]: Eosinophils/100 WBC (Bld) 2.8 % 0-5 [facility] Work Phone: Glucose [Mass/Vol] 120 mg/dL 74-106 [facility] Work Phone: Comment on above: Fasting Glucose resu lt from 100 to 125 mg/dL suggests IMPAIRED HOMEOSTASIS per A.D.A. criteria. Neutrophils (Bld) [#/Vol] 3.5 10*3/uL 2.0-7.7 [facility] Work Phone: Neutrophils/100 WBC (Bld) 60.9 % 47-70 [facility] Work Phone: Potassium [Moles/Vol] 4.4 mmol/L 3.5-5.1 [facility] Work Phone: Comment on above: Moderate Hemolysis, Result may be falsely increased. Sodium [Moles/Vol] 138 mmol/L 136-145 [facility] Work Phone: WBC (Bld) [#/Vol] 5.8 10*3/uL 4.4-11.0 [facility] Work Phone: Blood erythrocytes count (nu mber/volume)on 11-27-2021 RBC (Bld) [#/Vol] 4.59 10*6/uL 4.2-5.4 [facility] Work Phone: Blood hemoglobin measurement (mass/volume)on 11-27-2021 Hemoglobin (Bld) [Mass/Vol] 12.8 g/dL 12.0-15.0 [facility] Work Phone: Blood lymphocytes/100 leukoc yteson 11-27-2021 Lymphocytes/100 WBC (Bld) 25.8 % 19-41 [facility] Work Phone: Blood monocytes/100 leukocyt eson 11-27-2021 Monocytes/100 WBC (Bld) 9.9 % 0-10 [facility] Work Phone: Blood platelet mean volumeon 11-27-2021 Platelet mean volume (Bld) [Entitic vol] 11.4 fL 6.2-12.0 [facility] Work Phone: Determination of erythrocyte mean corpuscular volume (MCV)on 11-27-2021 MCV (RBC) [Entitic vol] 86.9 fL 81-99 [facility] Work Phone: Hematocrit Auto (Bld) [Volum e fraction]on 11-27-2021 Hematocrit (Bld) [Volume fraction] 39.9 % 37-47 [facility] Work Phone: Laboratory - Chemistry and C hemistry - challengeon 11-27-2021 CO2 [Moles/Vol] 30.0 mmol/L 21.0-32.0 [facility] Work Phone: Magnesium [Mass/Vol] 1.9 mg/dL 1.6-2.6 [facility] Work Phone: Comment on above: Moderate Hemolysis, Result may be falsely increased. Urea nitrogen/Creatinine [Mass ratio] 9.8 mg/mg 10-20 [facility] Work Phone: Laboratory - Hematology and Cell countson 11-27-2021 Erythrocyte distribution width (RBC) [Entitic vol] 41.5 fL 35.1-43.9 [facility] Work Phone: Erythrocyte distribution width (RBC) [Ratio] 13.2 % 11.6-14.6 [facility] Work Phone: Immature granulocytes/100 WBC (Bld) 0.300 % 0.0-0.9 [facility] Work Phone: [phone] Comment on above: IG% - Immature Granu locytes (promyelocytes, myelocytes and metamyelocytes) > 1% indicates that a LEFT SHIFT is Present. MCH (RBC) [Entitic mass] 27.9 pg 27.0-32.0 [facility] Work Phone: Nucleated RBC/100 WBC (Bld) [Ratio] 0 % 0-5 [facility] Work Phone: [phone] MCHC Auto (RBC) [Mass/Vol]on 11-27-2021 MCHC (RBC) [Mass/Vol] 32.1 g/dL 32-36 [facility] Work Phone: No Panel Informationon 11-27 Estimated Creatinine Clearance Calc 90.50 ml/min [facility] Work Phone: [phone] Estimated GFR (MDRD) Amer 102 mL/min >60 [facility] Work Phone: [phone] Comment on above: GFR Calc Estimated GFR (MDRD) Non-Af Amer 85 mL/min >60 [facility] Work Phone: [phone] Comment on above: Non- GFR Calc Thyroid Stimulating Hormone (TSH) 4.97 uIU/mL 0.358-3.74 [facility] Work Phone: Platelets bldon 11-27-2021 Platelets (Bld) [#/Vol] 168 10*3/uL 150-450 [facility] Work Phone: [phone] Serum or plasma calcium mg urement (mass/volume)on 11-27-2021 Calcium [Mass/Vol] 8.9 mg/dL 8.5-10.1 [facility] Work Phone: [phone] Serum or plasma creatinine m easurement (mass/volume)on 11-27-2021 Creatinine [Mass/Vol] 0.82 mg/dL 0.55-1.02 [facility] Work Phone: [phone] Comment on above: The validity of the calculated GFR & GFRAA in patients over 70 years has not been determined. Clinical correlation is essential. Serum or plasma urea nitroge n measurement (mass/volume)on 11-27-2021 Urea nitrogen [Mass/Vol] 8 mg/dL 7-18 [facility] Work Phone: Thin prep Papanicolaou smear with manual screeningon 11-27-2021 Thin prep Papanicolaou smear with manual screening 3 5-15 [facility] Work Phone: Absolute lymphocyte counton 08-20-2021 Lymphocytes Auto (Unsp spec) [#/Vol] 1.34 10*3/uL 0.83-4.51 [facility] Work Phone: Basophil percentageon 2021 Basophil percentage 0 SEEN /hpf 0-5 [facility] Work Phone: Basophils/100 WBC (Bld) 0.8 % 0-1 [facility] Work Phone: Bilirubin [Mass/Vol] 0.30 mg/dL 0.20-1.00 [facility] Work Phone: Comment on above: For patients on eltr ombopag therapy, use of Dimension Pruden TBIL is not recommended. Chloride [Moles/Vol] 107 mmol/L 98-107 [facility] Work Phone: Eosinophils/100 WBC (Bld) 2.8 % 0-5 [facility] Work Phone: Glucose [Mass/Vol] 87 mg/dL 74-106 [facility] Work Phone: Neutrophils (Bld) [#/Vol] 3.0 10*3/uL 2.0-7.7 [facility] Work Phone: Neutrophils/100 WBC (Bld) 59.5 % 47-70 [facility] Work Phone: Potassium [Moles/Vol] 3.8 mmol/L 3.5-5.1 [facility] Work Phone: Protein [Mass/Vol] 7.9 g/dL 6.4-8.2 [facility] Work Phone: Sodium [Moles/Vol] 137 mmol/L 136-145 [facility] Work Phone: WBC (Bld) [#/Vol] 5.0 10*3/uL 4.4-11.0 [facility] Work Phone: Beta hCG serum qualon 2021 Beta HCG ( test) Ql Negative [facility] Work Phone: Bilirubin Test strip Ql (U)o n 08-20-2021 Bilirubin Ql (U) Negative Negative [facility] Work Phone: Blood erythrocytes count (nu mber/volume)on 08-20-2021 RBC (Bld) [#/Vol] 5.32 10*6/uL 4.2-5.4 [facility] Work Phone: Blood hemoglobin measurement (mass/volume)on 08-20-2021 Hemoglobin (Bld) [Mass/Vol] 14.6 g/dL 12.0-15.0 [facility] Work Phone: Blood lymphocytes/100 leukoc yteson 08-20-2021 Lymphocytes/100 WBC (Bld) 27.0 % 19-41 [facility] Work Phone: Blood monocytes/100 leukocyt eson 08-20-2021 Monocytes/100 WBC (Bld) 9.7 % 0-10 [facility] Work Phone: Blood platelet mean volumeon 08-20-2021 Platelet mean volume (Bld) [Entitic vol] 11.4 fL 6.2-12.0 [facility] Work Phone: Determination of erythrocyte mean corpuscular volume (MCV)on 08-20-2021 MCV (RBC) [Entitic vol] 84.2 fL 81-99 [facility] Work Phone: Hematocrit Auto (Bld) [Volum e fraction]on 08-20-2021 Hematocrit (Bld) [Volume fraction] 44.8 % 37-47 [facility] Work Phone: Ketones Test strip Ql (U)on 08-20-2021 Ketones Ql (U) Negative Negative [facility] Work Phone: [phone] Laboratory - Chemistry and C hemistry - challengeon 08-20-2021 ALP [Catalytic activity/Vol] 65 U/L 45-117 [facility] Work Phone: [phone] ALT [Catalytic activity/Vol] 30 U/L 13-56 [facility] Work Phone: [phone] CO2 [Moles/Vol] 26.0 mmol/L 21.0-32.0 [facility] Work Phone: [phone] Globulin (S) [Mass/Vol] 3.8 g/dL 2.2-4.2 [facility] Work Phone: [phone] Lipase [Catalytic activity/Vol] 119 U/L 73-393 [facility] Work Phone: [phone] Urea nitrogen/Creatinine [Mass ratio] 7.6 mg/mg 10-20 [facility] Work Phone: [phone] Laboratory - Hematology and Cell countson 08-20-2021 Erythrocyte distribution width (RBC) [Entitic vol] 41.4 fL 35.1-43.9 [facility] Work Phone: [phone] Erythrocyte distribution width (RBC) [Ratio] 13.5 % 11.6-14.6 [facility] Work Phone: [phone] Immature granulocytes/100 WBC (Bld) 0.200 % 0.0-0.9 [facility] Work Phone: [phone] Comment on above: IG% - Immature Granu locytes (promyelocytes, myelocytes and metamyelocytes) > 1% indicates that a LEFT SHIFT is Present. MCH (RBC) [Entitic mass] 27.4 pg 27.0-32.0 [facility] Work Phone: [phone] Nucleated RBC/100 WBC (Bld) [Ratio] 0 % 0-5 [facility] Work Phone: [phone] MCHC Auto (RBC) [Mass/Vol]on 08-20-2021 MCHC (RBC) [Mass/Vol] 32.6 g/dL 32-36 [facility] Work Phone: Mucus LM Ql (Urine sed)on Mucus Ql (Urine sed) 0 SEEN /hpf [facility] Work Phone: [phone] Nitrite Test strip Ql (U)on 08-20-2021 Nitrite Ql (U) Negative Negative [facility] Work Phone: No Panel Informationon 08-20 Estimated Creatinine Clearance Calc 93.93 ml/min [facility] Work Phone: [phone] Estimated GFR (MDRD) Amer 106 mL/min >60 [facility] Work Phone: [phone] Comment on above: GFR Calc Estimated GFR (MDRD) Non-Af Amer 88 mL/min >60 [facility] Work Phone: [phone] Comment on above: Non- GFR Calc Platelets bldon 08-20-2021 Platelets (Bld) [#/Vol] 183 10*3/uL 150-450 [facility] Work Phone: [phone] Protein Test strip Ql (U)on 08-20-2021 Protein Ql (U) Negative Negative [facility] Work Phone: [phone] Serum or plasma albumin mg urement (mass/volume)on 08-20-2021 Albumin [Mass/Vol] 4.1 g/dL 3.2-5.0 [facility] Work Phone: [phone] Serum or plasma albumin/glob ulin mass ratioon 08-20-2021 Albumin/Globulin [Mass ratio] 1.1 {ratio} 0.9-2.4 [facility] Work Phone: [phone] Serum or plasma calcium mg urement (mass/volume)on 08-20-2021 Calcium [Mass/Vol] 9.2 mg/dL 8.5-10.1 [facility] Work Phone: [phone] Serum or plasma creatinine m easurement (mass/volume)on 08-20-2021 Creatinine [Mass/Vol] 0.79 mg/dL 0.55-1.02 [facility] Work Phone: [phone] Comment on above: The validity of the calculated GFR & GFRAA in patients over 70 years has not been determined. Clinical correlation is essential. Serum or plasma urea nitroge n measurement (mass/volume)on 08-20-2021 Urea nitrogen [Mass/Vol] 6 mg/dL 7-18 [facility] Work Phone: Squamous epithelial cells de tection in urine sediment by light microscopyon 08-20-2021 Epithelial cells.squamous LM Ql (Urine sed) 5-10 SEEN /hpf 5-10 [facility] Work Phone: Thin prep Papanicolaou smear with manual screeningon 08-20-2021 Thin prep Papanicolaou smear with manual screening 14 U/L 15-37 [facility] Work Phone: [phone] Thin prep Papanicolaou smear with manual screening 4 5-15 [facility] Work Phone: Urine blood detectionon 04-0 RBC Ql (U) Negative Negative [facility] Work Phone: RBC Ql (U) 0 SEEN /hpf 0-5 [facility] Work Phone: Urine clarityon 08-20-2021 Clarity (U) Clear Clear [facility] Work Phone: Urine color determinationon 08-20-2021 Color (U) Yellow Yellow [facility] Work Phone: Urine glucose detectionon Glucose Ql (U) Normal mg/dl Normal [facility] Work Phone: [phone] Urine leukocyte esterase det ection by dipstickon 08-20-2021 Leukocyte esterase Test strip Ql (U) Negative Negative [facility] Work Phone: Urine pHon 08-20-2021 pH (U) 6.0 [pH] 5.0 - 8.0 [facility] Work Phone: [phone] Urine sediment bacteria coun t by microscopy (number/high power field)on 08-20-2021 Bacteria LM.HPF (Urine sed) [#/Area] 0 /[HPF] None Seen [facility] Work Phone: Urine specific gravity measu rementon 08-20-2021 Specific gravity (U) [Rel density] 1.015 1.002-1.030 [facility] Work Phone: Urobilinogen Auto test strip Ql (U)on 08-20-2021 Urobilinogen Ql (U) Normal mg/dl Normal [facility] Work Phone: No Panel Informationon 08-11 Thyroid Stimulating Hormone (TSH) 2.44 uIU/mL 0.358-3.74 [facility] Work Phone: Absolute lymphocyte counton 06-08-2021 Lymphocytes Auto (Unsp spec) [#/Vol] 1.22 10*3/uL 0.83-4.51 [facility] Work Phone: Basophil percentageon 2021 Basophils/100 WBC (Bld) 0.6 % 0-1 [facility] Work Phone: Bilirubin [Mass/Vol] 0.40 mg/dL 0.20-1.00 [facility] Work Phone: Comment on above: For patients on eltr ombopag therapy, use of Dimension Pruden TBIL is not recommended. Chloride [Moles/Vol] 103 mmol/L 98-107 [facility] Work Phone: Eosinophils/100 WBC (Bld) 3.3 % 0-5 [facility] Work Phone: Glucose [Mass/Vol] 102 mg/dL 74-106 [facility] Work Phone: Comment on above: Fasting Glucose resu lt from 100 to 125 mg/dL suggests IMPAIRED HOMEOSTASIS per A.D.A. criteria. Neutrophils (Bld) [#/Vol] 3.0 10*3/uL 2.0-7.7 [facility] Work Phone: Neutrophils/100 WBC (Bld) 62.1 % 47-70 [facility] Work Phone: Potassium [Moles/Vol] 3.9 mmol/L 3.5-5.1 [facility] Work Phone: Protein [Mass/Vol] 7.3 g/dL 6.4-8.2 [facility] Work Phone: [phone] Sodium [Moles/Vol] 139 mmol/L 136-145 [facility] Work Phone: [phone] WBC (Bld) [#/Vol] 4.9 10*3/uL 4.4-11.0 [facility] Work Phone: [phone] Blood erythrocytes count (nu mber/volume)on 06-08-2021 RBC (Bld) [#/Vol] 5.20 10*6/uL 4.2-5.4 [facility]: [phone] Blood hemoglobin measurement (mass/volume)on 06-08-2021 Hemoglobin (Bld) [Mass/Vol] 14.3 g/dL 12.0-15.0 [facility] Work Phone: [phone] Blood lymphocytes/100 leukoc yteson 06-08-2021 Lymphocytes/100 WBC (Bld) 25.0 % 19-41 [facility] Work Phone: [phone] Blood monocytes/100 leukocyt eson 06-08-2021 Monocytes/100 WBC (Bld) 8.6 % 0-10 [facility] Work Phone: Blood platelet mean volumeon 06-08-2021 Platelet mean volume (Bld) [Entitic vol] 11.4 fL 6.2-12.0 [facility] Work Phone: [phone] Determination of erythrocyte mean corpuscular volume (MCV)on 06-08-2021 MCV (RBC) [Entitic vol] 84.0 fL 81-99 [facility] Work Phone: [phone] Hematocrit Auto (Bld) [Volum e fraction]on 06-08-2021 Hematocrit (Bld) [Volume fraction] 43.7 % 37-47 [facility] Work Phone: Laboratory - Chemistry and C hemistry - challengeon 06-08-2021 ALP [Catalytic activity/Vol] 65 U/L 45-117 [facility] Work Phone: [phone] ALT [Catalytic activity/Vol] 51 U/L 13-56 [facility] Work Phone: [phone] CO2 [Moles/Vol] 30.0 mmol/L 21.0-32.0 [facility] Work Phone: [phone] Globulin (S) [Mass/Vol] 3.7 g/dL 2.2-4.2 [facility] Work Phone: [phone] Urea nitrogen/Creatinine [Mass ratio] 12.5 mg/mg 10-20 [facility] Work Phone: [phone] Laboratory - Hematology and Cell countson 06-08-2021 Erythrocyte distribution width (RBC) [Entitic vol] 40.0 fL 35.1-43.9 [facility] Work Phone: [phone] Erythrocyte distribution width (RBC) [Ratio] 13.0 % 11.6-14.6 [facility] Work Phone: [phone] Immature granulocytes/100 WBC (Bld) 0.400 % 0.0-0.9 [facility] Work Phone: [phone] Comment on above: IG% - Immature Granu locytes (promyelocytes, myelocytes and metamyelocytes) > 1% indicates that a LEFT SHIFT is Present. MCH (RBC) [Entitic mass] 27.5 pg 27.0-32.0 [facility] Work Phone: [phone] Nucleated RBC/100 WBC (Bld) [Ratio] 0 % 0-5 [facility] Work Phone: [phone] MCHC Auto (RBC) [Mass/Vol]on 06-08-2021 MCHC (RBC) [Mass/Vol] 32.7 g/dL 32-36 [facility] Work Phone: [phone] No Panel Informationon 06-08 Thyroid Stimulating Hormone (TSH) 0.30 uIU/mL 0.358-3.74 [facility] Work Phone: [phone] Estimated GFR (MDRD) Amer 119 mL/min >60 [facility] Work Phone: [phone] Comment on above: GFR Calc Estimated GFR (MDRD) Non-Af Amer 99 mL/min >60 [facility] Work Phone: Comment on above: Non- GFR Calc Vitamin D 25-Hydroxy 16.2 ng/mL [facility] Work Phone: Comment on above: Vitamin D 25(OH) Sta tus Range Deficiency <20 ng/mL (50nmol/L) Insufficiency 20 - 30 ng/mL (50 - 75 nmol/L) Sufficiency 30 - 100 ng/mL (75 - 250 nmol/L) Toxicity >100 ng/mL (>250 nmol/L) Platelets bldon 06-08-2021 Platelets (Bld) [#/Vol] 178 10*3/uL 150-450 [facility] Work Phone: Serum or plasma albumin mg urement (mass/volume)on 06-08-2021 Albumin [Mass/Vol] 3.6 g/dL 3.2-5.0 [facility] Work Phone: Serum or plasma albumin/glob ulin mass ratioon 06-08-2021 Albumin/Globulin [Mass ratio] 1.0 {ratio} 0.9-2.4 [facility] Work Phone: Serum or plasma calcium mg urement (mass/volume)on 06-08-2021 Calcium [Mass/Vol] 8.7 mg/dL 8.5-10.1 [facility] Work Phone: Serum or plasma creatinine m easurement (mass/volume)on 06-08-2021 Creatinine [Mass/Vol] 0.72 mg/dL 0.55-1.02 [facility] Work Phone: Comment on above: The validity of the calculated GFR & GFRAA in patients over 70 years has not been determined. Clinical correlation is essential. Serum or plasma urea nitroge n measurement (mass/volume)on 06-08-2021 Urea nitrogen [Mass/Vol] 9 mg/dL 12-06 [facility] Work Phone: [phone] Thin prep Papanicolaou smear with manual screeningon 01-18-2022 Thin prep Papanicolaou smear with manual screening 25 U/L 15-37 [facility] Work Phone: Thin prep Papanicolaou smear with manual screening 6 5-15 [facility] Work Phone: SARS coronavirus RNA [Presen ce] in Unspecified specimen by JONE with probe detectionon 05-24-2021 SARS-CoV RNA JONE+probe Ql (Unsp spec) Not detected Not Detected [facility] Work Phone: Comment on above: This [...] of in vitro diagnostic tests for detection [id number] virus and/or diagnosis of COVID-19 infectionunder section [...] 12-31-2020 IMPRESSION: No acute osseous abnormality identified. Court Transcriber: [facility] Transcribe Date/Time: Dec 31 2020 1:18P Dictated by : ADE MELÉNDEZ MD This examination was interpreted and the report reviewed and electronically signed by: ADE MELÉNDEZ MD on Dec 31 2020 1:20PM [facility] DIVISION OF RADIOLOGY * * [...] tissue abnormality identified. DIVISION OF RADIOLOGY Provider, [facility] - 12/31/2020 * * *Final [...] IMPRESSION IMPRESSION: No acute osseous abnormality identified. Court Transcriber: [facility] Transcribe Date/Time: Dec 31 2020 1:18P Dictated by : ADE MELÉNDEZ MD This examination was interpreted and the report reviewed and electronically signed by: ADE MELÉNDEZ MD on Dec 31 2020 1:20PM EST [facility] Radiology Study observation (narrative) [facility] XR Shoulder - left 3 ViewsOr dered By: [facility] Provider on 12-31-2020 [facility] XR Chest PA and Lateralon IMPRESSION: No acute radiographic abnormality. Court Transcriber: [facility] Transcribe Date/Time: Jun 25 2020 [...] soft tissues: Unremarkable. DIVISION OF RADIOLOGY Provider, [facility] - 06/25/2020 * * *Final [...] Unremarkable. IMPRESSION IMPRESSION: No acute radiographic abnormality. Court Transcriber: [facility] Transcribe Date/Time: Jun 25 2020 3:58P Dictated by : JOSHUA CLARK MD This examination was interpreted and the report reviewed and electronically signed by: JOSHUA CLARK MD on Jun 25 2020 3:59PM [facility] Radiology Study observation (narrative) [facility] XR Chest PA and LateralOrder ed By: Cc Provider on 06-25-2020 [facility] Office Visit: OB Routineon 1 06-19-2016 Documentation of current medications (procedure) Done Invalid Interpretation Code [facility] Urine, glucose presence N Invalid Interpretation Code [facility] Urine, protein N Invalid Interpretation Code [facility] Office Visit: OB Routineon 1 06-10-2016 Documentation of current medications (procedure) Done Invalid Interpretation Code [facility] Urine, glucose presence N Invalid Interpretation Code [facility] Urine, protein N Invalid Interpretation Code [facility] Office Visit: OB Routineon 1 Albumin Ql (U) N Invalid Interpretation Code [facility] Documentation of current medications (procedure) Done Invalid Interpretation Code [facility] Glucose Test strip mass conc (U) N Invalid Interpretation Code [facility] Protein mass conc Done Invalid Interpretation Code [facility] Tobacco smoking status [facility] Never Invalid Interpretation Code [facility] Tobacco smoking status [facility] Tobacco smoking status [facility] Invalid Interpretation Code [facility] Tobacco smoking status [facility] Current every day smoker Invalid Interpretation Code [facility] Tobacco use [facility] Current every day smoker Invalid Interpretation Code [facility] Urine, glucose presence N Invalid Interpretation Code [facility] Urine, protein N Invalid Interpretation Code [facility] 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-2017 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[employer] 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 Interface Message Text Patient rescheduled due to illness Normal [facility] Office Visit: OB Routineon 0 02-17-2017 Albumin Ql (U) N Invalid Interpretation Code [facility] Documentation of current medications (procedure) Done Invalid Interpretation Code [facility] Glucose Test strip mass conc (U) N Invalid Interpretation Code [facility] Protein mass conc Done Invalid Interpretation Code [facility] Urine, glucose presence N Invalid Interpretation Code [facility] Urine, protein N Invalid Interpretation Code [facility] Lab Report: HIV Screen 4TH G EN W/Confirmon 02-10-2017 GE use only - for [employer] import when terms are not otherwise specified . Invalid Interpretation Code Non Reactive [facility] Lab Report: Hepatitis B Surf dakotah Agon 02-10-2017 BSA (Body Surface Area) . Invalid Interpretation Code Negative [facility] Lab Report: Rapid Plasmin Re agin (RPR)on 02-10-2017 Reagin antibody presence . Invalid Interpretation Code NONREACTIVE [facility] Lab Report: Rubella IgGon rubella virus antibody, IgG 192.8 [iU]/mL Invalid Interpretation Code [facility] Replaced Document: HIV Scree n 4TH GEN W/Confirmon 02-10-2017 HIV1/0/2 SCREEN . Invalid Interpretation Code Non Reactive [facility] Replaced Document: Hepatitis B Surface Agon 02-10-2017 HBV surface Ag Ql (S) . Invalid Interpretation Code Negative [facility] Replaced Document: Rapid Jeremy smin Reagin (RPR)on 02-10-2017 Reagin Ab VDRL Qn (S) . Invalid Interpretation Code NONREACTIVE [facility] Replaced Document: Rubella I gGon 02-10-2017 Rubella IgG 192.8 [iU]/mL Invalid Interpretation Code [facility] Lab Report: CBC W/Diff, Auto matedon 02-09-2017 Basophils/100 WBC Auto (Bld) 0.2 % Invalid Interpretation Code 0-1 [facility] Eosinophils/100 leukocytes 3.2 % Invalid Interpretation Code 0-5 [facility] [facility] Erythrocyte distribution width Auto Ratio (RBC) 13.6 % Invalid Interpretation Code 11.6-14.6 [facility] Erythrocytes (RBC) 4.64 10*6/uL Invalid Interpretation Code 4.2-5.4 [facility] Hematocrit (HCT) 40.0 % Invalid Interpretation Code 37-47 [facility] Hemoglobin mass conc (Bld) 13.0 g/dL Invalid Interpretation Code 12.0-15.0 [facility] immature granulocytes, percentage of total cells, blood 0.200 % Invalid Interpretation Code 0.0-0.9 [facility] Lymphocytes 1.29 X10 3/UL Invalid Interpretation Code 0.83-4.51 [facility] Lymphocytes/100 leukocytes 25.7 % Invalid Interpretation Code 19-41 [facility] MCH 28.0 pg Invalid Interpretation Code 27.0-32.0 [facility] MCHC mass conc (RBC) 32.5 G/GL Invalid Interpretation Code 32-36 [facility] MCV 86.2 fL Invalid Interpretation Code 81-99 [facility] Monocytes/100 leukocytes 5.8 % Invalid Interpretation Code 0-10 [facility] neutrophil count, blood 3.3 X10 3/UL Invalid Interpretation Code 2.0-7.7 [facility] Neutrophils/100 WBC Auto (Bld) 64.9 % Invalid Interpretation Code 47-70 [facility] Platelets 171 10*3/mm3 Invalid Interpretation Code 150-450 [facility] PMV by Cordell 11.0 fL Invalid Interpretation Code 6.2-12.0 [facility] red blood cell distribution width, size density 42.8 fL Invalid Interpretation Code 35.1-43.9 [facility] WBC (Leukocytes) 5.0 10*3/uL Invalid Interpretation Code 4.4-11.0 [facility] Lab Report: Hemoglobin A1con 02-09-2017 Hemoglobin A1c/Hemoglobin.total mass fraction (Bld) 5.5 % Invalid Interpretation Code 4.2-6.3 [facility] Lab Report: T4 Total, Thyrox inon 02-09-2017 Thyroxine (T4) 11.4 ug/dL Invalid Interpretation Code 4.8-13.9 [facility] Lab Report: Thyroid Stim Hor kendrick (TSH)on 02-09-2017 Thyroid stimulating hormone (TSH) 6.03 u[iU]/mL High 0.358-3.74 [facility] Office Visit: OB Routineon 0 02-09-2017 Documentation of current medications (procedure) Done Invalid Interpretation Code [facility] Replaced Document: CBC W/Dif f, Automatedon 02-09-2017 Absolute Neut 3.3 X10 3/UL Invalid Interpretation Code 2.0-7.7 [facility] Basophils/100 WBC (Bld) 0.2 % 0-1 B [facility] Eosinophils/100 WBC (Bld) 3.2 % 0-5 [facility] Erythrocyte distribution width Auto Ratio (RBC) 42.8 fL Invalid Interpretation Code 35.1-43.9 [facility] Work Phone: Erythrocyte distribution width Ratio (RBC) 42.8 fL 35.1-43.9 [facility] Erythrocyte distribution width Ratio (RBC) 13.6 % 11.6-14.6 [facility] Hematocrit Volume Fraction (Bld) 40.0 % 37-47 [facility] Immature granulocytes #/vol (Bld) 0.200 % Invalid Interpretation Code 0.0-0.9 [facility] [place] Immature granulocytes/100 WBC (Bld) 0.200 % Invalid Interpretation Code 0.0-0.9 [facility] Lymphocytes #/vol (Bld) 1.29 X10 3/UL 0.83-4.51 [facility] Lymphocytes/100 WBC (Bld) 25.7 % 19-41 [facility] MCH Entitic mass (RBC) 28.0 pg 27.0-32.0 [facility] MCHC mass conc (RBC) 32.5 G/GL 32-36 [facility] MCV Entitic volume (RBC) 86.2 fL 81-99 [facility] Monocytes/100 WBC (Bld) 5.8 % 0-10 B [facility] Neutrophils #/vol (Bld) 3.3 X10 3/UL 2.0-7.7 [facility] Neutrophils Auto #/vol (Bld) 3.3 X10 3/UL Invalid Interpretation Code 2.0-7.7 [facility] Work Phone: Neutrophils/100 WBC (Bld) 64.9 % 47-70 [facility] Platelet mean volume Entitic volume (Bld) 11.0 fL 6.2-12.0 [facility] Platelets #/vol (Bld) 171 10*3/mm3 150-450 B [facility] RBC #/vol (Bld) 4.64 10*6/uL 4.2-5.4 [facility][1]s [facility] [place] RDW SD 42.8 fL Invalid Interpretation Code 35.1-43.9 [facility] WBC #/vol (Bld) 5.0 10*3/uL 4.4-11.0 [facility] [place] Microbiology: Noe Santiago [facility] 01-20-2017 CUV . Invalid Interpretation Code [facility] GE use only - for [employer] import when terms are not otherwise specified . Invalid Interpretation Code [facility] Microbiology: (P) Radha Santiago [facility] 01-19-2017 GE use only - for [employer] import when terms are not otherwise specified . Invalid Interpretation Code [facility] Microbiology: (P) Culture, G enital Comprehensiveon 01-18-2017 GE use only - for [employer] import when terms are not otherwise specified . Invalid Interpretation Code [facility] Office Visit: bloody vaginal dischargeon 01-17-2017 Documentation of current medications (procedure) Done Invalid Interpretation Code [facility] Fall risk assessment No Invalid Interpretation Code [facility] Protein mass conc Done [facility] Tobacco smoking status LAIS Never Invalid Interpretation Code [facility] Tobacco smoking status LAIS Current every day smoker Invalid Interpretation Code [facility] Tobacco use CPHS Current every day smoker Invalid Interpretation Code [facility] Microbiology: Culture, Urine on 01-11-2017 CUUR . [facility] Append: OB Initialon 017 crown rump length by ultrasound 6.1 mm Invalid Interpretation Code [facility] estimated date of confinement by sonogram 09/01/2017 Invalid Interpretation Code [facility] cardiac activity by sonography Yes Invalid Interpretation Code [facility] number by ultrasound 1 Invalid Interpretation Code [facility] gestational age by ultrasound 6W 3D Invalid Interpretation Code [facility] OB ultrasound, gestational sac Yes Invalid Interpretation Code [facility] Lab Report: CT/NG [facility] BY PCR on 01-09-2017 Chlamydia trachomatis DNA [Presence] in Urine by Probe and target amplification method Negative Invalid Interpretation Code Negative [facility] Neisseria gonorrhoeae presence Negative Invalid Interpretation Code Negative [facility] Office Visit: OB Initialon 0 01-09-2017 Fall risk assessment [facility] Herpes Simplex Virus Genital no Invalid Interpretation Code [facility] Tobacco smoking status NHIS Never [facility] Tobacco smoking status LAIS Current every day smoker [facility] Tobacco use CPHS Current every day smoker Invalid Interpretation Code [facility] Office Visit: OB Initialon 0 12-21-2015 General categories [Interpretation] of Cervical or vaginal smear or scraping by Cyto stain ASCUS Invalid Interpretation Code [facility] Bacteria identified Anaer cx Nom (Unsp spec) Anaerobic Culture Prevotella bivia [facility] Work Phone: Anaerobic Culture Prevotella melaninogenica [facility] Work Phone: [phone] Anaerobic Culture Anaerobic cocci [facility] Work Phone: [phone] Bacteria identified Cx Nom ( Wound) Wound Culture Enterococcus faecalis [facility] Work Phone: Culture, urine Bacteria identified Cx Nom (U) Positive [facility] Work Phone: Bacteria identified Cx Nom (U) Mixed Gram Pos & Gram Neg Org [facility] Work Phone: [phone] Gram stain for investigation of transfusion reaction Microscopic observation Gram stain Nom (Unsp spec) [facility] Work Phone: Influenza virus A and B and SARS-CoV-2 (COVID-19) Ag panel - Upper respiratory specim SARS-CoV-2 (COVID-19) RNA JONE+probe Ql (Resp) [facility] Work Phone: Laboratory - Microbiology an d Antimicrobial susceptibility Bacteria identified Cx Nom (Bld) No growth in 5 days. [facility] Work Phone: No Panel Information SARS-CoV-2 & FLU Antigen (Rapid) [facility] Work Phone: Vital Signs Date Time Vital Sign Value Performing Clinician Lennox calles 06-21-2024 13:58-0500 Body temperature 98.91 [degF] Tomasz Ace Jr., DPM Work Phone: [facility] 06-21-2024 13:58-0500 Diastolic blood pressure 82 mm[Hg] Tomasz Ace Jr., DPM Work Phone: [facility] 06-21-2024 13:58-0500 Heart rate 90 /min Tomasz Ace Jr., DPM Work Phone: [facility] 06-21-2024 13:58-0500 Systolic blood pressure 128 mm[Hg] Tomasz Ace Jr., DPM Work Phone: [facility] 09-29-2023 15:14-0400 Body height 167.[address] Aleena London Work Phone: [facility] 09-29-2023 15:14-0400 Body mass index (BMI) [Ratio] 38.6 kg/m2 Dr. Aleena London Work Phone: [facility] 09-29-2023 15:14-0400 Body temperature 97 [degF] Dr. Aleena London Work Phone: [facility] 09-29-2023 15:14-0400 Body weight 108.[address] Aleena London Work Phone: [facility] 09-29-2023 15:14-0400 Diastolic blood pressure 90 mm[Hg] Dr. Aleena London Work Phone: [facility] 09-29-2023 15:14-0400 Heart rate 65 /min Dr. Aleena London Work Phone: [facility] 09-29-2023 15:14-0400 Respiratory rate 16 /min Dr. Aleena London Work Phone: [facility] 09-29-2023 15:14-0400 SaO2% (BldA) [Mass fraction] 100 % Dr. Aleena London Work Phone: [facility] 09-29-2023 15:14-0400 Systolic blood pressure 149 mm[Hg] Dr. Aleena London Work Phone: [facility] 09-14-2023 15:11-0400 Body mass index (BMI) [Ratio] 38.3 kg/m2 Dr. Aleena London Work Phone: [facility] 09-14-2023 15:11-0400 Body temperature 98.7 [degF] Dr. Aleena London Work Phone: [facility] 09-14-2023 15:11-0400 Body weight 107.[address] Aleena London Work Phone: [facility] 09-14-2023 15:11-0400 Diastolic blood pressure 82 mm[Hg] Dr. Aleena London Work Phone: [facility] 09-14-2023 15:11-0400 Heart rate 83 /min Dr. Aleena London Work Phone: [facility] 09-14-2023 15:11-0400 Respiratory rate 16 /min Dr. Aleena London Work Phone: [facility] 09-14-2023 15:11-0400 SaO2% (BldA) [Mass fraction] 98 % Dr. Aleena London Work Phone: [facility] 09-14-2023 15:11-0400 Systolic blood pressure 128 mm[Hg] Dr. Aleena London Work Phone: [facility] 09-14-2023 12:10-0400 Body temperature 98.4 [degF] Dr. Aleena London Work Phone: [facility] 09-14-2023 12:10-0400 Diastolic blood pressure 80 mm[Hg] Dr. Aleena London Work Phone: [facility] 09-14-2023 12:10-0400 Heart rate 95 /min Dr. Aleena London Work Phone: [facility] 09-14-2023 12:10-0400 Respiratory rate 12 /min Dr. Aleena London Work Phone: [facility] 09-14-2023 12:10-0400 SaO2% (BldA) [Mass fraction] 98 % Dr. Aleena London Work Phone: [facility] 09-14-2023 12:10-0400 Systolic blood pressure 126 mm[Hg] Dr. Aleena London Work Phone: [facility] 09-11-2023 14:47-0400 Body height 167.[address] Aleena London Work Phone: [facility] 09-11-2023 14:47-0400 Body mass index (BMI) [Ratio] 38.2 kg/m2 Dr. Aleena London Work Phone: [facility] 09-11-2023 14:47-0400 Body temperature 99.4 [degF] Dr. Aleena London Work Phone: [facility] 09-11-2023 14:47-0400 Body weight 107.[address] Aleena London Work Phone: [facility] 09-11-2023 14:47-0400 Diastolic blood pressure 82 mm[Hg] Dr. Aleena London Work Phone: [facility] 09-11-2023 14:47-0400 Heart rate 92 /min Dr. Aleena London Work Phone: [facility] 09-11-2023 14:47-0400 Respiratory rate 14 /min Dr. Aleena London Work Phone: [facility] 09-11-2023 14:47-0400 SaO2% (BldA) [Mass fraction] 99 % Dr. Aleena London Work Phone: [facility] 09-11-2023 14:47-0400 Systolic blood pressure 122 mm[Hg] Dr. Aleena London Work Phone: [facility] 09-05-2023 14:01-0400 Body height 167.[address] Aleena London Work Phone: [facility] 09-05-2023 14:00-0400 Body mass index (BMI) [Ratio] 38 kg/m2 Dr. Aleena London Work Phone: [facility] 09-05-2023 14:00-0400 Body weight 106.[address] Aleena London Work Phone: [facility] 09-05-2023 14:00-0400 Diastolic blood pressure 82 mm[Hg] Dr. Aleena London Work Phone: [facility] 09-05-2023 14:00-0400 Systolic blood pressure 139 mm[Hg] Dr. Aleena London Work Phone: [facility] 09-05-2023 09:46-0400 Body mass index (BMI) [Ratio] 37.8 kg/m2 Dr. Aleena London Work Phone: [facility] 09-05-2023 09:46-0400 Body weight 106.[address] Aleena London Work Phone: [facility] 09-05-2023 09:46-0400 Diastolic blood pressure 75 mm[Hg] Dr. Aleena London Work Phone: [facility] 09-05-2023 09:46-0400 Heart rate 71 /min Dr. Aleena London Work Phone: [facility] 09-05-2023 09:46-0400 SaO2% (BldA) [Mass fraction] 98 % Dr. Aleena London Work Phone: [facility] 09-05-2023 09:46-0400 Systolic blood pressure 113 mm[Hg] Dr. Aleena London Work Phone: [facility] 07-26-2023 00:39-0500 Respiratory rate 18 /min Dr. Aleena Lodnon Work Phone: [facility] 07-25-2023 19:13-0500 Body height 167.[address] Aleena London Work Phone: [facility] 07-25-2023 19:13-0500 Body mass index (BMI) [Ratio] 37.9 kg/m2 Dr. Aleena London Work Phone: [facility] 07-25-2023 19:13-0500 Body temperature 98 [degF] Dr. Aleena London Work Phone: [facility] 07-25-2023 19:13-0500 Body weight 106.[address] Aleena London Work Phone: [facility] 07-25-2023 19:13-0500 Diastolic blood pressure 84 mm[Hg] Dr. Aleena London Work Phone: [facility] 07-25-2023 19:13-0500 Heart rate 85 /min Dr. Aleena London Work Phone: [facility] 07-25-2023 19:13-0500 SaO2% (BldA) [Mass fraction] 100 % Dr. Aleena London Work Phone: [facility] 07-25-2023 19:13-0500 Systolic blood pressure 122 mm[Hg] Dr. Aleena London Work Phone: [facility] 07-18-2023 23:43-0500 Body temperature 98 [degF] Dr. Aleena London Work Phone: [facility] 07-18-2023 23:43-0500 Diastolic blood pressure 83 mm[Hg] Dr. Aleena London Work Phone: [facility] 07-18-2023 23:43-0500 Heart rate 74 /min Dr. Aleena London Work Phone: [facility] 07-18-2023 23:43-0500 Respiratory rate 16 /min Dr. Aleena London Work Phone: [facility] 07-18-2023 23:43-0500 SaO2% (BldA) [Mass fraction] 96 % Dr. Aleena London Work Phone: [facility] 07-18-2023 23:43-0500 Systolic blood pressure 120 mm[Hg] Dr. Aleena London Work Phone: [facility] 07-18-2023 20:12-0500 Body height 167.[address] Aleena London Work Phone: [facility] 07-18-2023 20:12-0500 Body mass index (BMI) [Ratio] 37.1 kg/m2 Dr. Aleena London Work Phone: [facility] 07-18-2023 20:12-0500 Body weight 104.[address] Aleena London Work Phone: [facility] 07-18-2023 11:04-0500 Body mass index (BMI) [Ratio] 37.5 kg/m2 Dr. Aleena London Work Phone: [facility] 07-18-2023 11:04-0500 Body weight 105.[address] Aleena London Work Phone: [facility] 07-18-2023 11:04-0500 Diastolic blood pressure 74 mm[Hg] Dr. Aleena London Work Phone: [facility] 07-18-2023 11:04-0500 Systolic blood pressure 112 mm[Hg] Dr. Aleena London Work Phone: [facility] 07-13-2023 12:29-0500 Body temperature 99 [degF] Dr. Aleena London Work Phone: [facility] 07-13-2023 12:29-0500 Diastolic blood pressure 82 mm[Hg] Dr. Aleena London Work Phone: [facility] 07-13-2023 12:29-0500 Heart rate 109 /min Dr. Aleena London Work Phone: [facility] 07-13-2023 12:29-0500 Respiratory rate 12 /min Dr. Aleena London Work Phone: [facility] 07-13-2023 12:29-0500 SaO2% (BldA) [Mass fraction] 98 % Dr. Aleena London Work Phone: [facility] 07-13-2023 12:29-0500 Systolic blood pressure 122 mm[Hg] Dr. Aleena London Work Phone: [facility] 07-04-2023 14:23-0500 Body mass index (BMI) [Ratio] 38 kg/m2 Dr. Aleena London Work Phone: [facility] 07-04-2023 14:23-0500 Body temperature 97.5 [degF] Dr. Aleena London Work Phone: [facility] 07-04-2023 14:23-0500 Body weight 106.[address] Aleena London Work Phone: [facility] 07-04-2023 14:23-0500 Diastolic blood pressure 62 mm[Hg] Dr. Aleena London Work Phone: [facility] 07-04-2023 14:23-0500 Heart rate 82 /min Dr. Aleena London Work Phone: [facility] 07-04-2023 14:23-0500 Respiratory rate 16 /min Dr. Aleena London Work Phone: [facility] 07-04-2023 14:23-0500 SaO2% (BldA) [Mass fraction] 99 % Dr. Aleena London Work Phone: [facility] 07-04-2023 14:23-0500 Systolic blood pressure 122 mm[Hg] Dr. Aleena London Work Phone: [facility] 06-29-2023 09:42-0500 Body mass index (BMI) [Ratio] 60.7 kg/m2 Dr. Aleena London Work Phone: [facility] 06-29-2023 09:42-0500 Body temperature 97.9 [degF] Dr. Aleena London Work Phone: [facility] 06-29-2023 09:42-0500 Body weight 170.[address] Aleena London Work Phone: [facility] 06-29-2023 09:42-0500 Diastolic blood pressure 78 mm[Hg] Dr. Aleena London Work Phone: [facility] 06-29-2023 09:42-0500 Heart rate 94 /min Dr. Aleena London Work Phone: [facility] 06-29-2023 09:42-0500 Respiratory rate 16 /min Dr. Aleena London Work Phone: [facility] 06-29-2023 09:42-0500 SaO2% (BldA) [Mass fraction] 100 % Dr. Aleena London Work Phone: [facility] 06-29-2023 09:42-0500 Systolic blood pressure 136 mm[Hg] Dr. Aleena London Work Phone: [facility] 05-04-2023 12:50-0500 Diastolic blood pressure 77 mm[Hg] Dr. Aleena London Work Phone: [facility] 05-04-2023 12:50-0500 Heart rate 71 /min Dr. Aleean London Work Phone: [facility] 05-04-2023 12:50-0500 Respiratory rate 16 /min Dr. Aleena London Work Phone: [facility] 05-04-2023 12:50-0500 Systolic blood pressure 117 mm[Hg] Dr. Aleena London Work Phone: [facility] 05-04-2023 12:19-0500 Body height 167.[address] Aleena London Work Phone: [facility] 05-04-2023 12:19-0500 Body mass index (BMI) [Ratio] 37.5 kg/m2 Dr. Aleena London Work Phone: [facility] 05-04-2023 12:19-0500 Body temperature 98.3 [degF] Dr. Aleena London Work Phone: [facility] 05-04-2023 12:19-0500 Body weight 105.[address] Aleena London Work Phone: [facility] 05-04-2023 12:19-0500 SaO2% (BldA) [Mass fraction] 100 % Dr. Aleena London Work Phone: [facility] 04-19-2023 11:12-0500 Body mass index (BMI) [Ratio] 37.5 kg/m2 Dr. Aleena London Work Phone: [facility] 04-19-2023 11:12-0500 Body temperature 98.7 [degF] Dr. Aleena London Work Phone: [facility] 04-19-2023 11:12-0500 Body weight 105.[address] Aleena London Work Phone: [facility] 04-19-2023 11:12-0500 Diastolic blood pressure 86 mm[Hg] Dr. Aleena London Work Phone: [facility] 04-19-2023 11:12-0500 Heart rate 85 /min Dr. Aleena London Work Phone: [facility] 04-19-2023 11:12-0500 Respiratory rate 16 /min Dr. Aleena London Work Phone: [facility] 04-19-2023 11:12-0500 SaO2% (BldA) [Mass fraction] 98 % Dr. Aleena London Work Phone: [facility] 04-19-2023 11:12-0500 Systolic blood pressure 122 mm[Hg] Dr. Aleena London Work Phone: [facility] 04-17-2023 13:09-0500 Body height 167.[address] Aleena London Work Phone: [facility] 04-17-2023 13:09-0500 Body mass index (BMI) [Ratio] 37.8 kg/m2 Dr. Aleena London Work Phone: [facility] 04-17-2023 13:09-0500 Body temperature 95.9 [degF] Dr. Aleena London Work Phone: [facility] 04-17-2023 13:09-0500 Body weight 106.[address] Aleena London Work Phone: [facility] 04-17-2023 13:09-0500 Diastolic blood pressure 94 mm[Hg] Dr. Aleena London Work Phone: [facility] 04-17-2023 13:09-0500 Heart rate 107 /min Dr. Aleena London Work Phone: [facility] 04-17-2023 13:09-0500 Respiratory rate 18 /min Dr. Aleena London Work Phone: [facility] 04-17-2023 13:09-0500 SaO2% (BldA) [Mass fraction] 100 % Dr. Aleena London Work Phone: [facility] 04-17-2023 13:09-0500 Systolic blood pressure 145 mm[Hg] Dr. Aleena London Work Phone: [facility] 04-06-2023 14:05-0500 Body height 167.[address] Aleena London Work Phone: [facility] 04-06-2023 14:03-0500 Body mass index (BMI) [Ratio] 37.8 kg/m2 Dr. Aleena London Work Phone: [facility] 04-06-2023 14:03-0500 Body weight 106.[address] Aleena London Work Phone: [facility] 04-06-2023 14:03-0500 Diastolic blood pressure 88 mm[Hg] Dr. Aleena London Work Phone: [facility] 04-06-2023 14:03-0500 Systolic blood pressure 124 mm[Hg] Dr. Aleena London Work Phone: [facility] 03-16-2023 08:15-0400 Body height 167.[address] Aleena London Work Phone: [facility] 03-07-2023 14:41-0400 Body temperature 99 [degF] Dr. Aleena London Work Phone: [facility] 03-07-2023 14:41-0400 Diastolic blood pressure 82 mm[Hg] Dr. Aleena London Work Phone: [facility] 03-07-2023 14:41-0400 Heart rate 82 /min Dr. Aleena London Work Phone: [facility] 03-07-2023 14:41-0400 Respiratory rate 17 /min Dr. Aleena London Work Phone: [facility] 03-07-2023 14:41-0400 SaO2% (BldA) [Mass fraction] 98 % Dr. Aleena London Work Phone: [facility] 03-07-2023 14:41-0400 Systolic blood pressure 125 mm[Hg] Dr. Aleena London Work Phone: [facility] 02-14-2023 08:24-0400 Body temperature 98.9 [degF] Dr. Aleena London Work Phone: [facility] 02-14-2023 08:24-0400 Diastolic blood pressure 71 mm[Hg] Dr. Aleena London Work Phone: [facility] 02-14-2023 08:24-0400 Heart rate 82 /min Dr. Aleena London Work Phone: [facility] 02-14-2023 08:24-0400 Respiratory rate 16 /min Dr. Aleena London Work Phone: [facility] 02-14-2023 08:24-0400 SaO2% (BldA) [Mass fraction] 98 % Dr. Aleena London Work Phone: [facility] 02-14-2023 08:24-0400 Systolic blood pressure 117 mm[Hg] Dr. Aleena London Work Phone: [facility] 02-14-2023 07:13-0400 Body height 167.[address] Aleena London Work Phone: [facility] 02-14-2023 07:13-0400 Body mass index (BMI) [Ratio] 36.3 kg/m2 Dr. Aleena London Work Phone: [facility] 02-14-2023 07:13-0400 Body weight [address] Aleena London Work Phone: [facility] 02-10-2023 09:57-0400 Body mass index (BMI) [Ratio] 36.8 kg/m2 Dr. Aleean London Work Phone: [facility] 02-10-2023 09:57-0400 Body weight 103.[address] Aleena London Work Phone: [facility] 02-10-2023 09:57-0400 Diastolic blood pressure 74 mm[Hg] Dr. Aleena London Work Phone: [facility] 02-10-2023 09:57-0400 Systolic blood pressure 123 mm[Hg] Dr. Aleena London Work Phone: [facility] 02-08-2023 23:04-0400 Diastolic blood pressure 74 mm[Hg] Dr. Aleena London Work Phone: [facility] 02-08-2023 23:04-0400 Heart rate 81 /min Dr. Aleena London Work Phone: [facility] 02-08-2023 23:04-0400 Respiratory rate 16 /min Dr. Aleena London Work Phone: [facility] 02-08-2023 23:04-0400 SaO2% (BldA) [Mass fraction] 99 % Dr. Aleena London Work Phone: [facility] 02-08-2023 23:04-0400 Systolic blood pressure 128 mm[Hg] Dr. Aleena London Work Phone: [facility] 02-08-2023 17:51-0400 Body height 167.[address] Aleena London Work Phone: [facility] 02-08-2023 17:51-0400 Body mass index (BMI) [Ratio] 36.4 kg/m2 Dr. Aleena London Work Phone: [facility] 02-08-2023 17:51-0400 Body temperature 97.5 [degF] Dr. Aleena London Work Phone: [facility] 02-08-2023 17:51-0400 Body weight 102.[address] Aleena London Work Phone: [facility] 02-04-2023 20:12-0400 Respiratory rate 16 /min Dr. Aleena London Work Phone: [facility] 02-04-2023 18:44-0400 Body height 167.[address] Aleena London Work Phone: [facility] 02-04-2023 18:44-0400 Body mass index (BMI) [Ratio] 36.4 kg/m2 Dr. Aleena London Work Phone: [facility] 02-04-2023 18:44-0400 Body temperature 97.6 [degF] Dr. Aleena London Work Phone: [facility] 02-04-2023 18:44-0400 Body weight 102.[address] Aleena Lodnon Work Phone: [facility] 02-04-2023 18:44-0400 Diastolic blood pressure 89 mm[Hg] Dr. lAeena London Work Phone: [facility] 02-04-2023 18:44-0400 Heart rate 88 /min Dr. Aleena London Work Phone: [facility] 02-04-2023 18:44-0400 SaO2% (BldA) [Mass fraction] 100 % Dr. Aleena London Work Phone: [facility] 02-04-2023 18:44-0400 Systolic blood pressure 125 mm[Hg] Dr. Aleena London Work Phone: [facility] 01-16-2023 09:13-0400 Body mass index (BMI) [Ratio] 36.5 kg/m2 Dr. Aleena London Work Phone: [facility] 01-16-2023 09:13-0400 Body temperature 95.5 [degF] Dr. Aleena London Work Phone: [facility] 01-16-2023 09:13-0400 Body weight 102.[address] Aleena London Work Phone: [facility] 01-16-2023 09:13-0400 Diastolic blood pressure 86 mm[Hg] Dr. Aleena London Work Phone: [facility] 01-16-2023 09:13-0400 Heart rate 96 /min Dr. Aleena London Work Phone: [facility] 01-16-2023 09:13-0400 Respiratory rate 18 /min Dr. Aleena London Work Phone: [facility] 01-16-2023 09:13-0400 SaO2% (BldA) [Mass fraction] 98 % Dr. Aleena London Work Phone: [facility] 01-16-2023 09:13-0400 Systolic blood pressure 134 mm[Hg] Dr. Aleena London Work Phone: [facility] 12-25-2022 12:31-0400 Body height 167.[address] Aleena London Work Phone: [facility] 12-25-2022 12:31-0400 Body mass index (BMI) [Ratio] 36.3 kg/m2 Dr. Aleena London Work Phone: [facility] 12-25-2022 12:31-0400 Body temperature 97.1 [degF] Dr. Aleena London Work Phone: [facility] 12-25-2022 12:31-0400 Body weight 102.[address] Aleena London Work Phone: [facility] 12-25-2022 12:31-0400 Diastolic blood pressure 124 mm[Hg] Dr. Aleena London Work Phone: [facility] 12-25-2022 12:31-0400 Heart rate 90 /min Dr. Aleena London Work Phone: [facility] 12-25-2022 12:31-0400 Respiratory rate 18 /min Dr. Aleena London Work Phone: [facility] 12-25-2022 12:31-0400 SaO2% (BldA) [Mass fraction] 100 % Dr. Aleena London Work Phone: [facility] 12-25-2022 12:31-0400 Systolic blood pressure 145 mm[Hg] Dr. Aleena London Work Phone: [facility] 12-15-2022 10:30-0400 Body height 167.[address] Aleena London Work Phone: [facility] 12-15-2022 10:30-0400 Body mass index (BMI) [Ratio] 36.1 kg/m2 Dr. Aleena London Work Phone: [facility] 12-15-2022 10:30-0400 Body weight 101.[address] Aleena London Work Phone: [facility] 12-15-2022 10:30-0400 Diastolic blood pressure 80 mm[Hg] Dr. Aleena London Work Phone: [facility] 12-15-2022 10:30-0400 Systolic blood pressure 125 mm[Hg] Dr. Aleena London Work Phone: [facility] 12-08-2022 11:55-0400 Body mass index (BMI) [Ratio] 35.7 kg/m2 Dr. lAeena London Work Phone: [facility] 12-08-2022 11:55-0400 Body weight 100.[address] Aleena London Work Phone: [facility] 12-08-2022 11:55-0400 Diastolic blood pressure 85 mm[Hg] Dr. Aleena London Work Phone: [facility] 12-08-2022 11:55-0400 Systolic blood pressure 121 mm[Hg] Dr. Aleena London Work Phone: [facility] 11-19-2022 20:47-0400 Body height 167.[address] Aelena London Work Phone: [facility] 11-19-2022 20:47-0400 Body mass index (BMI) [Ratio] 36.1 kg/m2 Dr. Aleena London Work Phone: [facility] 11-19-2022 20:47-0400 Body temperature 97.6 [degF] Dr. Aleena London Work Phone: [facility] 11-19-2022 20:47-0400 Body weight 101.[address] Aleena London Work Phone: [facility] 11-19-2022 20:47-0400 Diastolic blood pressure 94 mm[Hg] Dr. Aleena London Work Phone: [facility] 11-19-2022 20:47-0400 Heart rate 99 /min Dr. Aleena London Work Phone: [facility] 11-19-2022 20:47-0400 Respiratory rate 14 /min Dr. Aleena London Work Phone: [facility] 11-19-2022 20:47-0400 SaO2% (BldA) [Mass fraction] 100 % Dr. Aleena London Work Phone: [facility] 11-19-2022 20:47-0400 Systolic blood pressure 130 mm[Hg] Dr. Aleena London Work Phone: [facility] 11-16-2022 10:43-0400 Body height 167.6 cm Lukasz Eubanks MD Work Phone: [facility] 11-16-2022 10:43-0400 Body temperature 98.6 [degF] Lukasz Eubanks MD Work Phone: [facility] 11-16-2022 10:43-0400 Body weight 102.06 kg Lukasz Eubanks MD Work Phone: [facility] 11-16-2022 10:43-0400 Diastolic blood pressure 90 mm[Hg] Lukasz Eubanks MD Work Phone: [facility] 11-16-2022 10:43-0400 Heart rate 79 /min Lukasz Eubanks MD Work Phone: [facility] 11-16-2022 10:43-0400 SaO2% (BldA) [Mass fraction] 100 % Lukasz Euabnks MD Work Phone: [facility] 11-16-2022 10:43-0400 Systolic blood pressure 125 mm[Hg] Lukasz Eubanks MD Work Phone: [facility] 11-08-2022 16:37-0400 Body height 167.[address] Aleena London Work Phone: [facility] 11-08-2022 16:37-0400 Body mass index (BMI) [Ratio] 36.2 kg/m2 Dr. Aleena London Work Phone: [facility] 11-08-2022 16:37-0400 Body temperature 96.5 [degF] Dr. Aleena London Work Phone: [facility] 11-08-2022 16:37-0400 Body weight 101.[address] Aleena London Work Phone: [facility] 11-08-2022 16:37-0400 Diastolic blood pressure 100 mm[Hg] Dr. Aleena London Work Phone: [facility] 11-08-2022 16:37-0400 Heart rate 100 /min Dr. Aleena London Work Phone: [facility] 11-08-2022 16:37-0400 Respiratory rate 18 /min Dr. Aleena London Work Phone: [facility] 11-08-2022 16:37-0400 SaO2% (BldA) [Mass fraction] 93 % Dr. Aleena London Work Phone: [facility] 11-08-2022 16:37-0400 Systolic blood pressure 114 mm[Hg] Dr. Aleena London Work Phone: [facility] 09-02-2022 10:43-0400 Body height 167.[address] Aleena London Work Phone: [facility] 09-02-2022 10:43-0400 Body mass index (BMI) [Ratio] 35.6 kg/m2 Dr. Aleena London Work Phone: [facility] 09-02-2022 10:43-0400 Body temperature 99.5 [degF] Dr. Aleena London Work Phone: [facility] 09-02-2022 10:43-0400 Body weight 100.[address] Aleena London Work Phone: [facility] 09-02-2022 10:43-0400 Diastolic blood pressure 74 mm[Hg] Dr. Aleena London Work Phone: [facility] 09-02-2022 10:43-0400 Heart rate 90 /min Dr. Aleena London Work Phone: [facility] 09-02-2022 10:43-0400 Respiratory rate 16 /min Dr. Aleena London Work Phone: [facility] 09-02-2022 10:43-0400 SaO2% (BldA) [Mass fraction] 98 % Dr. Aleena London Work Phone: [facility] 04-14-2023 10:43-0400 Systolic blood pressure 120 mm[Hg] Dr. Aleena London Work Phone: [facility] 08-26-2022 16:47-0400 Respiratory rate 18 /min Dr. Aleena London Work Phone: [facility] 08-26-2022 15:00-0400 Body mass index (BMI) [Ratio] 36.4 kg/m2 Dr. Aleena London Work Phone: [facility] 08-26-2022 15:00-0400 Body temperature 97.7 [degF] Dr. Aleena London Work Phone: [facility] 08-26-2022 15:00-0400 Body weight 102.[address] Aleena London Work Phone: [facility] 08-26-2022 15:00-0400 Diastolic blood pressure 93 mm[Hg] Dr. Aleena London Work Phone: [facility] 08-26-2022 15:00-0400 Heart rate 97 /min Dr. Aleena London Work Phone: [facility] 08-26-2022 15:00-0400 SaO2% (BldA) [Mass fraction] 100 % Dr. Aleena London Work Phone: [facility] 08-26-2022 15:00-0400 Systolic blood pressure 131 mm[Hg] Dr. Aleena London Work Phone: [facility] 08-22-2022 10:08-0400 Body mass index (BMI) [Ratio] 36.4 kg/m2 Dr. Aleena London Work Phone: [facility] 08-22-2022 10:08-0400 Body temperature 97.6 [degF] Dr. Aleena London Work Phone: [facility] 08-22-2022 10:08-0400 Body weight 102.[address] Aleena London Work Phone: [facility] 08-22-2022 10:08-0400 Diastolic blood pressure 80 mm[Hg] Dr. Aleena London Work Phone: [facility] 08-22-2022 10:08-0400 Heart rate 84 /min Dr. Aleena London Work Phone: [facility] 08-22-2022 10:08-0400 Respiratory rate 18 /min Dr. Aleena London Work Phone: [facility] 08-22-2022 10:08-0400 SaO2% (BldA) [Mass fraction] 96 % Dr. Aleena London Work Phone: [facility] 08-22-2022 10:08-0400 Systolic blood pressure 136 mm[Hg] Dr. Aleena London Work Phone: [facility] 08-18-2022 00:17-0400 Diastolic blood pressure 80 mm[Hg] Dr. Aleena London Work Phone: [facility] 08-18-2022 00:17-0400 Heart rate 81 /min Dr. Aleena London Work Phone: [facility] 08-18-2022 00:17-0400 Respiratory rate 16 /min Dr. Aleena London Work Phone: [facility] 08-18-2022 00:17-0400 SaO2% (BldA) [Mass fraction] 98 % Dr. Aleena London Work Phone: [facility] 08-18-2022 00:17-0400 Systolic blood pressure 130 mm[Hg] Dr. Aleena London Work Phone: [facility] 08-17-2022 21:13-0400 Body mass index (BMI) [Ratio] 36.7 kg/m2 Dr. Aleena London Work Phone: [facility] 08-17-2022 21:13-0400 Body temperature 96.6 [degF] Dr. Aleena London Work Phone: [facility] 08-17-2022 21:13-0400 Body weight 103.[address] Aleena London Work Phone: [facility] 08-15-2022 17:17-0400 Diastolic Blood Pressure Non-Invasive 82 1 ALAN QUINN DO [facility] 08-15-2022 17:17-0400 Heart rate 90 /min ALAN QUINN DO [facility] 08-15-2022 17:17-0400 Respiratory rate 18 /min ALAN QUINN DO [facility] 08-15-2022 17:17-0400 Systolic Blood Pressure Non-Invasive 154 1 ALAN QUINN DO [facility] 08-15-2022 16:04-0400 Body height 167.6 cm ALAN QUINN DO [facility] 08-15-2022 16:04-0400 Body temperature 99.14 [degF] ALAN QUINN DO [facility] 08-15-2022 16:04-0400 Body weight 103.5 kg ALAN QUINN DO [facility] 08-15-2022 16:04-0400 Diastolic Blood Pressure Non-Invasive 79 1 ALAN QUINN DO [facility] 08-15-2022 16:04-0400 Heart rate 108 /min ALAN QUINN DO [facility] 08-15-2022 16:04-0400 Respiratory rate 20 /min ALAN QUINN DO [facility] 08-15-2022 16:04-0400 Systolic Blood Pressure Non-Invasive 125 1 ALAN QUINN DO [facility] 08-08-2022 11:35-0400 Body mass index (BMI) [Ratio] 37 kg/m2 Dr. Aleena London Work Phone: [facility] 08-08-2022 11:35-0400 Body weight 103.[address] Aleena London Work Phone: [facility] 08-08-2022 11:35-0400 Diastolic blood pressure 72 mm[Hg] Dr. Aleena London Work Phone: [facility] 08-08-2022 11:35-0400 Systolic blood pressure 114 mm[Hg] Dr. Aleena London Work Phone: [facility] 07-17-2022 20:31-0500 Diastolic blood pressure 81 mm[Hg] Dr. Aleena London Work Phone: [facility] 07-17-2022 20:31-0500 Heart rate 83 /min Dr. Aleena London Work Phone: [facility] 07-17-2022 20:31-0500 Respiratory rate 24 /min Dr. Aleena London Work Phone: [facility] 07-17-2022 20:31-0500 SaO2% (BldA) [Mass fraction] 121 % Dr. Aleena London Work Phone: [facility] 07-17-2022 20:31-0500 Systolic blood pressure 121 mm[Hg] Dr. Aleena London Work Phone: [facility] 07-17-2022 18:22-0500 Body height 167.[address] Aleena London Work Phone: [facility] 07-17-2022 18:22-0500 Body mass index (BMI) [Ratio] 36.8 kg/m2 Dr. Aleena London Work Phone: [facility] 07-17-2022 18:22-0500 Body temperature 98.2 [degF] Dr. Aleena London Work Phone: [facility] 07-17-2022 18:22-0500 Body weight 103.[address] Aleena London Work Phone: [facility] 07-14-2022 14:08-0500 Body mass index (BMI) [Ratio] 37.3 kg/m2 Dr. Aleena London Work Phone: [facility] 07-14-2022 14:08-0500 Body weight 104.[address] Aleena London Work Phone: [facility] 07-14-2022 14:08-0500 Diastolic blood pressure 84 mm[Hg] Dr. Aleena London Work Phone: [facility] 07-14-2022 14:08-0500 Heart rate 101 /min Dr. Aleena London Work Phone: [facility] 07-14-2022 14:08-0500 SaO2% (BldA) [Mass fraction] 97 % Dr. Aleena London Work Phone: [facility] 07-14-2022 14:08-0500 Systolic blood pressure 130 mm[Hg] Dr. Aleena London Work Phone: [facility] 06-29-2022 08:10-0500 Body height 167.[address] Aleena London Work Phone: [facility] 06-29-2022 08:10-0500 Body mass index (BMI) [Ratio] 37.5 kg/m2 Dr. Aleena London Work Phone: [facility] 06-29-2022 08:10-0500 Body temperature 98.8 [degF] Dr. Aleena London Work Phone: [facility] 06-29-2022 08:10-0500 Body weight 105.[address] Aleena London Work Phone: [facility] 06-29-2022 08:10-0500 Diastolic blood pressure 86 mm[Hg] Dr. Aleena London Work Phone: [facility] 06-29-2022 08:10-0500 Heart rate 76 /min Dr. Aleena London Work Phone: [facility] 06-29-2022 08:10-0500 Respiratory rate 18 /min Dr. Aleena London Work Phone: [facility] 06-29-2022 08:10-0500 SaO2% (BldA) [Mass fraction] 97 % Dr. Aleena London Work Phone: [facility] 06-29-2022 08:10-0500 Systolic blood pressure 124 mm[Hg] Dr. Aleena London Work Phone: [facility] 06-10-2022 09:10-0500 Body height 167.[address] Aleena London Work Phone: [facility] 06-10-2022 09:10-0500 Body mass index (BMI) [Ratio] 36.8 kg/m2 Dr. Aleena London Work Phone: [facility] 06-10-2022 09:10-0500 Body temperature 98.1 [degF] Dr. Aleena London Work Phone: [facility] 06-10-2022 09:10-0500 Body weight 103.[address] Aleena London Work Phone: [facility] 06-10-2022 09:10-0500 Diastolic blood pressure 127 mm[Hg] Dr. Aleena London Work Phone: [facility] 06-10-2022 09:10-0500 Heart rate 96 /min Dr. Aleena London Work Phone: [facility] 06-10-2022 09:10-0500 Respiratory rate 15 /min Dr. Aleena London Work Phone: [facility] 06-10-2022 09:10-0500 SaO2% (BldA) [Mass fraction] 100 % Dr. Aleena London Work Phone: [facility] 06-10-2022 09:10-0500 Systolic blood pressure 142 mm[Hg] Dr. Aleena London Work Phone: [facility] 05-30-2022 09:42-0500 Body mass index (BMI) [Ratio] 36.9 kg/m2 Dr. Aleena London Work Phone: [facility] 05-30-2022 09:42-0500 Body temperature 98.1 [degF] Dr. Aleena London Work Phone: [facility] 05-30-2022 09:42-0500 Body weight 103.[address] Aleena London Work Phone: [facility] 05-30-2022 09:42-0500 Diastolic blood pressure 74 mm[Hg] Dr. Aleena London Work Phone: [facility] 05-30-2022 09:42-0500 Heart rate 82 /min Dr. lAeena London Work Phone: [facility] 05-30-2022 09:42-0500 Respiratory rate 14 /min Dr. Aleena London Work Phone: [facility] 05-30-2022 09:42-0500 SaO2% (BldA) [Mass fraction] 99 % Dr. Aleena London Work Phone: [facility] 05-30-2022 09:42-0500 Systolic blood pressure 126 mm[Hg] Dr. Aleena London Work Phone: [facility] 05-24-2022 08:46-0500 Body mass index (BMI) [Ratio] 37.1 kg/m2 Dr. Aleena London Work Phone: [facility] 05-24-2022 08:46-0500 Body temperature 97.8 [degF] Dr. Aleena London Work Phone: [facility] 05-24-2022 08:46-0500 Body weight 104.[address] Aleena London Work Phone: [facility] 05-24-2022 08:46-0500 Diastolic blood pressure 84 mm[Hg] Dr. Aleena London Work Phone: [facility] 05-24-2022 08:46-0500 Heart rate 89 /min Dr. Aleena London Work Phone: [facility] 05-24-2022 08:46-0500 Respiratory rate 20 /min Dr. Aleena London Work Phone: [facility] 05-24-2022 08:46-0500 SaO2% (BldA) [Mass fraction] 99 % Dr. Aleena London Work Phone: [facility] 05-24-2022 08:46-0500 Systolic blood pressure 129 mm[Hg] Dr. Aleena London Work Phone: [facility] 05-23-2022 02:21-0500 Diastolic blood pressure 82 mm[Hg] Dr. Aleena London Work Phone: [facility] 05-23-2022 02:21-0500 Heart rate 77 /min Dr. Aleena London Work Phone: [facility] 05-23-2022 02:21-0500 Respiratory rate 15 /min Dr. Aleena London Work Phone: [facility] 05-23-2022 02:21-0500 SaO2% (BldA) [Mass fraction] 99 % Dr. Aleena Lonodn Work Phone: [facility] 05-23-2022 02:21-0500 Systolic blood pressure 122 mm[Hg] Dr. Aleena London Work Phone: [facility] 05-22-2022 23:54-0500 Body height 167.[address] Aleena London Work Phone: [facility] Work Phone: 05-22-2022 23:54-0500 Body mass index (BMI) [Ratio] 37.3 kg/m2 Dr. Aleena London Work Phone: [facility] 05-22-2022 23:54-0500 Body temperature 98 [degF] Dr. Aleena London Work Phone: [facility] 05-22-2022 23:54-0500 Body weight [address] Aleena London Work Phone: [facility] 05-04-2022 13:18-0500 Body mass index (BMI) [Ratio] 36.6 kg/m2 Dr. Aleena London Work Phone: [facility] 05-04-2022 13:18-0500 Body weight 102.[address] Aleena London Work Phone: [facility] 05-04-2022 13:18-0500 Diastolic blood pressure 82 mm[Hg] Dr. Aleena London Work Phone: [facility] 05-04-2022 13:18-0500 Systolic blood pressure 121 mm[Hg] Dr. Aleena London Work Phone: [facility] 04-20-2022 11:47-0500 Body mass index (BMI) [Ratio] 37.8 kg/m2 Dr. Aleena London Work Phone: [facility] 04-20-2022 11:47-0500 Body weight 103.[address] Aleena London Work Phone: [facility] 04-20-2022 11:47-0500 Diastolic blood pressure 71 mm[Hg] Dr. Aleena London Work Phone: [facility] 04-20-2022 11:47-0500 Systolic blood pressure 111 mm[Hg] Dr. Aleena London Work Phone: [facility] 04-18-2022 17:09-0500 Body height 165.[address] Aleena London Work Phone: [facility] Work Phone: 04-18-2022 17:09-0500 Body mass index (BMI) [Ratio] 37.6 kg/m2 Dr. Aleena London Work Phone: [facility] 04-18-2022 17:09-0500 Body temperature 97.7 [degF] Dr. Aleena London Work Phone: [facility] 04-18-2022 17:09-0500 Body weight 102.[address] Aleena London Work Phone: [facility] 04-18-2022 17:09-0500 Diastolic blood pressure 76 mm[Hg] Dr. Aleena London Work Phone: [facility] 04-18-2022 17:09-0500 Heart rate 102 /min Dr. Aleena London Work Phone: [facility] 04-18-2022 17:09-0500 Respiratory rate 14 /min Dr. Aleena London Work Phone: [facility] 04-18-2022 17:09-0500 SaO2% (BldA) [Mass fraction] 99 % Dr. Aleena London Work Phone: [facility] 04-18-2022 17:09-0500 Systolic blood pressure 123 mm[Hg] Dr. Aleena London Work Phone: [facility] 04-16-2022 09:30-0500 Body temperature 97.8 [degF] Dr. Aleena London Work Phone: [facility] 04-16-2022 09:30-0500 Diastolic blood pressure 61 mm[Hg] Dr. Aleena London Work Phone: [facility] 04-16-2022 09:30-0500 Heart rate 82 /min Dr. Aleena London Work Phone: [facility] 04-16-2022 09:30-0500 Respiratory rate 17 /min Dr. Aleena London Work Phone: [facility] 04-16-2022 09:30-0500 SaO2% (BldA) [Mass fraction] 100 % Dr. Aleena London Work Phone: [facility] 04-16-2022 09:30-0500 Systolic blood pressure 106 mm[Hg] Dr. Aleena London Work Phone: [facility] 04-16-2022 02:05-0500 Body temperature 98.8 [degF] Dr. Aleena London Work Phone: [facility] Work Phone: 04-16-2022 02:05-0500 Diastolic blood pressure 67 mm[Hg] Dr. Aleena London Work Phone: [facility] Work Phone: 04-16-2022 02:05-0500 Heart rate 93 /min Dr. Aleena London Work Phone: [facility] Work Phone: 04-16-2022 02:05-0500 Respiratory rate 18 /min Dr. Aleena London Work Phone: [facility] Work Phone: 04-16-2022 02:05-0500 SaO2% (BldA) [Mass fraction] 98 % Dr. Aleena London Work Phone: [facility] Work Phone: 04-16-2022 02:05-0500 Systolic blood pressure 125 mm[Hg] Dr. Aleena London Work Phone: [facility] Work Phone: 04-15-2022 09:48-0500 Inhaled oxygen flow rate 6 L/min Dr. Aleena London Work Phone: [facility] 04-14-2022 21:53-0500 Body height 165.[address] Aleena London Work Phone: [facility] Work Phone: 04-14-2022 21:53-0500 Body mass index (BMI) [Ratio] 37.3 kg/m2 Dr. Aleena London Work Phone: [facility] 04-14-2022 21:53-0500 Body weight 101.[address] Aleena London Work Phone: [facility] 04-12-2022 20:13-0500 Body temperature 98.1 [degF] Dr. Aleena London Work Phone: [facility] Work Phone: 04-12-2022 20:13-0500 Diastolic blood pressure 56 mm[Hg] Dr. Aleena London Work Phone: [facility] Work Phone: 04-12-2022 20:13-0500 Heart rate 76 /min Dr. Aleena London Work Phone: [facility] Work Phone: 04-12-2022 20:13-0500 Respiratory rate 15 /min Dr. Aleena London Work Phone: [facility] Work Phone: 04-12-2022 20:13-0500 SaO2% (BldA) [Mass fraction] 97 % Dr. Aleena London Work Phone: [facility] Work Phone: 04-12-2022 20:13-0500 Systolic blood pressure 98 mm[Hg] Dr. Aleena London Work Phone: [facility] Work Phone: 04-12-2022 13:43-0500 Body height 165.[address] Aleena London Work Phone: [facility] Work Phone: 04-12-2022 13:43-0500 Body mass index (BMI) [Ratio] 37.6 kg/m2 Dr. Aleena London Work Phone: [facility] Work Phone: 04-12-2022 13:43-0500 Body weight 102.[address] Aleena London Work Phone: [facility] Work Phone: 04-05-2022 09:31-0500 Body height 167.[address] Aleena London Work Phone: [facility] Work Phone: 04-05-2022 09:31-0500 Body mass index (BMI) [Ratio] 36.4 kg/m2 Dr. Aleena London Work Phone: [facility] 04-05-2022 09:31-0500 Body weight 102.[address] Aleena London Work Phone: [facility] 04-05-2022 09:31-0500 Diastolic blood pressure 74 mm[Hg] Dr. Aleena London Work Phone: [facility] 04-05-2022 09:31-0500 Systolic blood pressure 107 mm[Hg] Dr. Aleena London Work Phone: [facility] 03-30-2022 17:35-0500 Heart rate 82 /min Dr. Aleena London Work Phone: [facility] 03-30-2022 17:35-0500 Respiratory rate 15 /min Dr. Aleena London Work Phone: [facility] 03-30-2022 17:35-0500 SaO2% (BldA) [Mass fraction] 98 % Dr. Aleena London Work Phone: [facility] 03-30-2022 14:04-0500 Body mass index (BMI) [Ratio] 36.9 kg/m2 Dr. Aleena London Work Phone: [facility] 03-30-2022 14:04-0500 Body temperature 97.4 [degF] Dr. Aleena London Work Phone: [facility] 03-30-2022 14:04-0500 Body weight 103.[address] Aleena London Work Phone: [facility] 03-30-2022 14:04-0500 Diastolic blood pressure 83 mm[Hg] Dr. Aleena London Work Phone: [facility] 03-30-2022 14:04-0500 Systolic blood pressure 119 mm[Hg] Dr. Aleena London Work Phone: [facility] 03-30-2022 13:02-0500 Body mass index (BMI) [Ratio] 36.9 kg/m2 Dr. Aleena London Work Phone: [facility] 03-30-2022 13:02-0500 Body weight 103.[address] Aleena London Work Phone: [facility] 03-30-2022 13:02-0500 Diastolic blood pressure 73 mm[Hg] Dr. Aleena London Work Phone: [facility] 03-30-2022 13:02-0500 Systolic blood pressure 118 mm[Hg] Dr. Aleena London Work Phone: [facility] 03-23-2022 11:26-0400 Body temperature 98.2 [degF] Dr. Aleena London Work Phone: [facility] 03-23-2022 11:26-0400 Diastolic blood pressure 65 mm[Hg] Dr. Aleena London Work Phone: [facility] 03-23-2022 11:26-0400 Heart rate 66 /min Dr. Aleena London Work Phone: [facility] 03-23-2022 11:26-0400 Respiratory rate 20 /min Dr. Aleena London Work Phone: [facility] 03-23-2022 11:26-0400 SaO2% (BldA) [Mass fraction] 97 % Dr. Aleena London Work Phone: [facility] 03-23-2022 11:26-0400 Systolic blood pressure 106 mm[Hg] Dr. Aleena London Work Phone: [facility] 03-22-2022 18:30-0400 Inhaled oxygen flow rate 4 L/min Dr. Aleena London Work Phone: [facility] 03-22-2022 17:41-0400 Body height 167.[address] Aleena London Work Phone: [facility] Work Phone: 03-22-2022 17:41-0400 Body mass index (BMI) [Ratio] 38.4 kg/m2 Dr. Aleena London Work Phone: [facility] 03-22-2022 17:41-0400 Body weight [address] Aleena London Work Phone: [facility] 03-12-2022 12:29-0400 Body height 167.[address] Aleena London Work Phone: [facility] Work Phone: 03-12-2022 12:29-0400 Body mass index (BMI) [Ratio] 37.9 kg/m2 Dr. Aleena London Work Phone: [facility] 03-12-2022 12:29-0400 Body temperature 98.1 [degF] Dr. Aleena London Work Phone: [facility] 03-12-2022 12:29-0400 Body weight 106.[address] Aleena London Work Phone: [facility] 03-12-2022 12:29-0400 Diastolic blood pressure 106 mm[Hg] Dr. Aleena London Work Phone: [facility] 03-12-2022 12:29-0400 Heart rate 119 /min Dr. Aleena London Work Phone: [facility] 03-12-2022 12:29-0400 Respiratory rate 16 /min Dr. Aleena London Work Phone: [facility] 03-12-2022 12:29-0400 SaO2% (BldA) [Mass fraction] 98 % Dr. Aleena London Work Phone: [facility] 03-12-2022 12:29-0400 Systolic blood pressure 157 mm[Hg] Dr. Aleena London Work Phone: [facility] 03-04-2022 16:11-0400 Heart rate 77 /min Dr. Aleena London Work Phone: [facility] 03-04-2022 16:11-0400 Respiratory rate 15 /min Dr. Aleena London Work Phone: [facility] 03-04-2022 16:11-0400 SaO2% (BldA) [Mass fraction] 98 % Dr. Aleena London Work Phone: [facility] 03-04-2022 13:28-0400 Body height 165.[address] Aleena London Work Phone: [facility] Work Phone: 03-04-2022 13:28-0400 Body mass index (BMI) [Ratio] 38.5 kg/m2 Dr. Aleena London Work Phone: [facility] 03-04-2022 13:28-0400 Body temperature 97.2 [degF] Dr. Aleena London Work Phone: [facility] 03-04-2022 13:28-0400 Body weight 104.[address] Aleena London Work Phone: [facility] 03-04-2022 13:28-0400 Diastolic blood pressure 91 mm[Hg] Dr. Aleena London Work Phone: [facility] 03-04-2022 13:28-0400 Systolic blood pressure 156 mm[Hg] Dr. Aleena London Work Phone: [facility] 03-02-2022 13:00-0400 Body mass index (BMI) [Ratio] 37.8 kg/m2 Dr. Aleena London Work Phone: [facility] 03-02-2022 13:00-0400 Body temperature 98.8 [degF] Dr. Aleena London Work Phone: [facility] 03-02-2022 13:00-0400 Body weight 106.[address] Aleena London Work Phone: [facility] 03-02-2022 13:00-0400 Diastolic blood pressure 82 mm[Hg] Dr. Aleena London Work Phone: [facility] 03-02-2022 13:00-0400 Heart rate 89 /min Dr. Aleena London Work Phone: [facility] 03-02-2022 13:00-0400 Respiratory rate 14 /min Dr. Aleena London Work Phone: [facility] 03-02-2022 13:00-0400 SaO2% (BldA) [Mass fraction] 97 % Dr. Aleena London Work Phone: [facility] 03-02-2022 13:00-0400 Systolic blood pressure 134 mm[Hg] Dr. Aleena London Work Phone: [facility] 02-28-2022 11:09-0400 Body temperature 98.7 [degF] Dr. Aleena London Work Phone: [facility] 02-28-2022 11:09-0400 Diastolic blood pressure 74 mm[Hg] Dr. Aleena London Work Phone: [facility] 02-28-2022 11:09-0400 Heart rate 112 /min Dr. Aleena London Work Phone: [facility] 02-28-2022 11:09-0400 Respiratory rate 14 /min Dr. Aleena London Work Phone: [facility] 02-28-2022 11:09-0400 SaO2% (BldA) [Mass fraction] 99 % Dr. Aleena London Work Phone: [facility] 02-28-2022 11:09-0400 Systolic blood pressure 126 mm[Hg] Dr. Aleena London Work Phone: [facility] 02-23-2022 10:26-0400 Body height 167.[address] Aleena London Work Phone: [facility] Work Phone: 02-23-2022 10:26-0400 Body mass index (BMI) [Ratio] 37.8 kg/m2 Dr. Aleena London Work Phone: [facility] 02-23-2022 10:26-0400 Body weight 106.[address] Aleena London Work Phone: [facility] 02-23-2022 10:26-0400 Diastolic blood pressure 83 mm[Hg] Dr. Aleena London Work Phone: [facility] 02-23-2022 10:26-0400 Heart rate 80 /min Dr. Aleena London Work Phone: [facility] 02-23-2022 10:26-0400 SaO2% (BldA) [Mass fraction] 96 % Dr. Aleena London Work Phone: [facility] 02-23-2022 10:26-0400 Systolic blood pressure 126 mm[Hg] Dr. Aleena London Work Phone: [facility] 02-15-2022 11:31-0400 Body mass index (BMI) [Ratio] 37.6 kg/m2 Dr. Aleena London Work Phone: [facility] 02-15-2022 11:31-0400 Body temperature 98.1 [degF] Dr. Aleena London Work Phone: [facility] 02-15-2022 11:31-0400 Body weight 105.[address] Aleena London Work Phone: [facility] 02-15-2022 11:31-0400 Diastolic blood pressure 85 mm[Hg] Dr. Aleena London Work Phone: [facility] 02-15-2022 11:31-0400 Heart rate 96 /min Dr. Aleena London Work Phone: [facility] 02-15-2022 11:31-0400 Respiratory rate 18 /min Dr. Aleena London Work Phone: [facility] 02-15-2022 11:31-0400 SaO2% (BldA) [Mass fraction] 100 % Dr. Aleena London Work Phone: [facility] 02-15-2022 11:31-0400 Systolic blood pressure 149 mm[Hg] Dr. Aleena London Work Phone: [facility] 02-15-2022 08:52-0400 Body mass index (BMI) [Ratio] 37.5 kg/m2 Dr. Aleena London Work Phone: [facility] 02-15-2022 08:52-0400 Body weight 105.[address] Aleena London Work Phone: [facility] 02-15-2022 08:52-0400 Diastolic blood pressure 85 mm[Hg] Dr. Aleena London Work Phone: [facility] 02-15-2022 08:52-0400 Systolic blood pressure 120 mm[Hg] Dr. Aleena London Work Phone: [facility] 02-08-2022 14:00-0400 Body mass index (BMI) [Ratio] 37.5 kg/m2 Dr. Aleena London Work Phone: [facility] Work Phone: 02-08-2022 14:00-0400 Body temperature 99 [degF] Dr. Aleena London Work Phone: [facility] Work Phone: 02-08-2022 14:00-0400 Body weight 105.[address] Aleena London Work Phone: [facility] Work Phone: 02-08-2022 14:00-0400 Diastolic blood pressure 86 mm[Hg] Dr. Aleena London Work Phone: [facility] Work Phone: 02-08-2022 14:00-0400 Heart rate 89 /min Dr. Aleena London Work Phone: [facility] Work Phone: 02-08-2022 14:00-0400 Respiratory rate 14 /min Dr. Aleena London Work Phone: [facility] Work Phone: 02-08-2022 14:00-0400 SaO2% (BldA) [Mass fraction] 99 % Dr. Aleena London Work Phone: [facility] Work Phone: 02-08-2022 14:00-0400 Systolic blood pressure 132 mm[Hg] Dr. Aleena London Work Phone: [facility] Work Phone: 12-30-2021 15:28-0400 Body height 167.[address] Aleena London Work Phone: [facility] Work Phone: 12-30-2021 15:28-0400 Body mass index (BMI) [Ratio] 37.5 kg/m2 Dr. Aleena London Work Phone: [facility] Work Phone: 12-30-2021 15:28-0400 Body weight 105.[address] Aleena London Work Phone: [facility] Work Phone: 12-30-2021 15:28-0400 Diastolic blood pressure 82 mm[Hg] Dr. Aleena London Work Phone: [facility] Work Phone: 12-30-2021 15:28-0400 Heart rate 87 /min Dr. Aleena London Work Phone: [facility] Work Phone: 12-30-2021 15:28-0400 SaO2% (BldA) [Mass fraction] 97 % Dr. Aleena London Work Phone: [facility] Work Phone: 12-30-2021 15:28-0400 Systolic blood pressure 138 mm[Hg] Dr. Aleena London Work Phone: [facility] Work Phone: 12-24-2021 00:35-0400 Heart rate 89 /min Dr. Aleena London Work Phone: [facility] Work Phone: 12-24-2021 00:35-0400 Respiratory rate 16 /min Dr. Aleena London Work Phone: [facility] Work Phone: 12-24-2021 00:35-0400 SaO2% (BldA) [Mass fraction] 99 % Dr. Aleena London Work Phone: [facility] Work Phone: 12-23-2021 22:19-0400 Body height 167.[address] Aleena London Work Phone: [facility] Work Phone: 12-23-2021 22:19-0400 Body mass index (BMI) [Ratio] 37.4 kg/m2 Dr. Aleena London Work Phone: [facility] Work Phone: 12-23-2021 22:19-0400 Body temperature 98.1 [degF] Dr. Aleena London Work Phone: [facility] Work Phone: 12-23-2021 22:19-0400 Body weight 105.[address] Aleena London Work Phone: [facility] Work Phone: 12-23-2021 22:19-0400 Diastolic blood pressure 97 mm[Hg] Dr. Aleena London Work Phone: [facility] Work Phone: 12-23-2021 22:19-0400 Systolic blood pressure 139 mm[Hg] Dr. Aleena London Work Phone: [facility] Work Phone: 12-14-2021 10:42-0400 Body mass index (BMI) [Ratio] 37.5 kg/m2 Dr. Aleena London Work Phone: [facility] Work Phone: 12-14-2021 10:42-0400 Body weight 105.[address] Aleena London Work Phone: [facility] Work Phone: 12-14-2021 10:42-0400 Diastolic blood pressure 88 mm[Hg] Dr. Aleena London Work Phone: [facility] Work Phone: 12-14-2021 10:42-0400 Systolic blood pressure 120 mm[Hg] Dr. Aleena London Work Phone: [facility] Work Phone: 11-27-2021 03:46-0400 Diastolic blood pressure 75 mm[Hg] Dr. Aleena London Work Phone: [facility] Work Phone: 11-27-2021 03:46-0400 Heart rate 70 /min Dr. Aleena London Work Phone: [facility] Work Phone: 11-27-2021 03:46-0400 Respiratory rate 15 /min Dr. Aleena London Work Phone: [facility] Work Phone: 11-27-2021 03:46-0400 Systolic blood pressure 125 mm[Hg] Dr. Aleena London Work Phone: [facility] Work Phone: 11-27-2021 01:16-0400 Body height 167.[address] Aleena London Work Phone: [facility] Work Phone: 11-27-2021 01:16-0400 Body mass index (BMI) [Ratio] 38.6 kg/m2 Dr. Aleena London Work Phone: [facility] Work Phone: 11-27-2021 01:16-0400 Body temperature 98.3 [degF] Dr. Aleena London Work Phone: [facility] Work Phone: 11-27-2021 01:16-0400 Body weight 108.[address] Aleena London Work Phone: [facility] Work Phone: 11-27-2021 01:16-0400 SaO2% (BldA) [Mass fraction] 99 % Dr. Aleena London Work Phone: [facility] Work Phone: 11-18-2021 15:03-0400 Body mass index (BMI) [Ratio] 37.8 kg/m2 Dr. Aleena London Work Phone: [facility] Work Phone: 11-18-2021 15:03-0400 Body temperature 98.9 [degF] Dr. Aleena London Work Phone: [facility] Work Phone: 11-18-2021 15:03-0400 Body weight 106.[address] Aleena London Work Phone: [facility] Work Phone: 11-18-2021 15:03-0400 Diastolic blood pressure 78 mm[Hg] Dr. Aleena London Work Phone: [facility] Work Phone: 11-18-2021 15:03-0400 Heart rate 83 /min Dr. Aleena London Work Phone: [facility] Work Phone: 11-18-2021 15:03-0400 Respiratory rate 16 /min Dr. Aleena London Work Phone: [facility] Work Phone: 11-18-2021 15:03-0400 SaO2% (BldA) [Mass fraction] 98 % Dr. Aleena London Work Phone: [facility] Work Phone: 11-18-2021 15:03-0400 Systolic blood pressure 126 mm[Hg] Dr. Aleena London Work Phone: [facility] Work Phone: 11-18-2021 09:43-0400 Body mass index (BMI) [Ratio] 37.6 kg/m2 Dr. Aleena London Work Phone: [facility] Work Phone: 11-18-2021 09:43-0400 Body temperature 98.7 [degF] Dr. Aleena London Work Phone: [facility] Work Phone: 11-18-2021 09:43-0400 Body weight 105.[address] Aleena London Work Phone: [facility] Work Phone: 11-18-2021 09:43-0400 Diastolic blood pressure 76 mm[Hg] Dr. Aleena London Work Phone: [facility] Work Phone: 11-18-2021 09:43-0400 Heart rate 81 /min Dr. Aleena London Work Phone: [facility] Work Phone: 11-18-2021 09:43-0400 Respiratory rate 16 /min Dr. Aleena London Work Phone: [facility] Work Phone: 11-18-2021 09:43-0400 SaO2% (BldA) [Mass fraction] 98 % Dr. Aleena London Work Phone: [facility] Work Phone: 11-18-2021 09:43-0400 Systolic blood pressure 118 mm[Hg] Dr. Aleena London Work Phone: [facility] Work Phone: 11-01-2021 13:12-0400 Body mass index (BMI) [Ratio] 38.2 kg/m2 Dr. Aleena London Work Phone: [facility] Work Phone: 11-01-2021 13:12-0400 Body temperature 99 [degF] Dr. Aleena London Work Phone: [facility] Work Phone: 11-01-2021 13:12-0400 Body weight 107.[address] Aleena London Work Phone: [facility] Work Phone: 11-01-2021 13:12-0400 Diastolic blood pressure 72 mm[Hg] Dr. Aleena London Work Phone: [facility] Work Phone: 11-01-2021 13:12-0400 Heart rate 82 /min Dr. Aleena London Work Phone: [facility] Work Phone: 11-01-2021 13:12-0400 Respiratory rate 16 /min Dr. Aleena London Work Phone: [facility] Work Phone: 11-01-2021 13:12-0400 SaO2% (BldA) [Mass fraction] 98 % Dr. Aleena London Work Phone: [facility] Work Phone: 11-01-2021 13:12-0400 Systolic blood pressure 118 mm[Hg] Dr. Aleena London Work Phone: [facility] Work Phone: 10-29-2021 17:52-0400 Body temperature 100.1 [degF] Dr. Aleena London Work Phone: [facility] Work Phone: 10-29-2021 17:52-0400 Diastolic blood pressure 80 mm[Hg] Dr. Aleena London Work Phone: [facility] Work Phone: 10-29-2021 17:52-0400 Heart rate 105 /min Dr. Aleena London Work Phone: [facility] Work Phone: 10-29-2021 17:52-0400 Respiratory rate 15 /min Dr. Aleena London Work Phone: [facility] Work Phone: 10-29-2021 17:52-0400 SaO2% (BldA) [Mass fraction] 99 % Dr. Aleena London Work Phone: [facility] Work Phone: 10-29-2021 17:52-0400 Systolic blood pressure 150 mm[Hg] Dr. Aleena London Work Phone: [facility] Work Phone: 10-29-2021 17:52-0400 Body temperature 100.1 [degF] Dr. Aleena London Work Phone: [facility] Work Phone: 10-29-2021 17:52-0400 Diastolic blood pressure 80 mm[Hg] Dr. Aleena London Work Phone: [facility] Work Phone: 10-29-2021 17:52-0400 Heart rate 105 /min Dr. Aleena London Work Phone: [facility] Work Phone: 10-29-2021 17:52-0400 Respiratory rate 15 /min Dr. Aleena London Work Phone: [facility] Work Phone: 10-29-2021 17:52-0400 SaO2% (BldA) [Mass fraction] 99 % Dr. Aleena London Work Phone: [facility] Work Phone: 10-29-2021 17:52-0400 Systolic blood pressure 150 mm[Hg] Dr. Aleena London Work Phone: [facility] Work Phone: 10-15-2021 11:07-0400 Body mass index (BMI) [Ratio] 37.4 kg/m2 Dr. Aleena London Work Phone: [facility] Work Phone: 10-15-2021 11:07-0400 Body temperature 98.1 [degF] Dr. Aleena London Work Phone: [facility] Work Phone: 10-15-2021 11:07-0400 Body weight 105.[address] Aleena London Work Phone: [facility] Work Phone: 10-15-2021 11:07-0400 Diastolic blood pressure 74 mm[Hg] Dr. Aleena London Work Phone: [facility] Work Phone: 10-15-2021 11:07-0400 Heart rate 70 /min Dr. Aleena London Work Phone: [facility] Work Phone: 10-15-2021 11:07-0400 Respiratory rate 16 /min Dr. Aleena London Work Phone: [facility] Work Phone: 10-15-2021 11:07-0400 SaO2% (BldA) [Mass fraction] 98 % Dr. Aleena London Work Phone: [facility] Work Phone: 10-15-2021 11:07-0400 Systolic blood pressure 108 mm[Hg] Dr. Aleena London Work Phone: [facility] Work Phone: 10-15-2021 11:07-0400 Body height 167.[address] Aleena London Work Phone: [facility] Work Phone: 10-15-2021 11:07-0400 Body mass index (BMI) [Ratio] 37.4 kg/m2 Dr. Aleena London Work Phone: [facility] Work Phone: 10-15-2021 11:07-0400 Body temperature 98.1 [degF] Dr. Aleena London Work Phone: [facility] Work Phone: 10-15-2021 11:07-0400 Body weight 105.[address] Aleena London Work Phone: [facility] Work Phone: 10-15-2021 11:07-0400 Diastolic blood pressure 74 mm[Hg] Dr. Aleena London Work Phone: [facility] Work Phone: 10-15-2021 11:07-0400 Heart rate 70 /min Dr. Aleena London Work Phone: [facility] Work Phone: 10-15-2021 11:07-0400 Respiratory rate 16 /min Dr. Aleena London Work Phone: [facility] Work Phone: 10-15-2021 11:07-0400 SaO2% (BldA) [Mass fraction] 98 % Dr. Aleena London Work Phone: [facility] Work Phone: 10-15-2021 11:07-0400 Systolic blood pressure 108 mm[Hg] Dr. Aleena London Work Phone: [facility] Work Phone: 10-13-2021 09:05-0400 Body temperature 98.6 [degF] Dr. Aleena London Work Phone: [facility] Work Phone: 10-13-2021 09:05-0400 Diastolic blood pressure 78 mm[Hg] Dr. Aleena London Work Phone: [facility] Work Phone: 10-13-2021 09:05-0400 Heart rate 86 /min Dr. Aleena London Work Phone: [facility] Work Phone: 10-13-2021 09:05-0400 Respiratory rate 14 /min Dr. Aleena London Work Phone: [facility] Work Phone: 10-13-2021 09:05-0400 SaO2% (BldA) [Mass fraction] 97 % Dr. Aleena London Work Phone: [facility] Work Phone: 10-13-2021 09:05-0400 Systolic blood pressure 126 mm[Hg] Dr. Aleena Lonodn Work Phone: [facility] Work Phone: 10-13-2021 09:05-0400 Body temperature 98.6 [degF] Dr. Aleena London Work Phone: [facility] Work Phone: 10-13-2021 09:05-0400 Diastolic blood pressure 78 mm[Hg] Dr. Aleena London Work Phone: [facility] Work Phone: 10-13-2021 09:05-0400 Heart rate 86 /min Dr. Aleena London Work Phone: [facility] Work Phone: 10-13-2021 09:05-0400 Respiratory rate 14 /min Dr. Aleena London Work Phone: [facility] Work Phone: 10-13-2021 09:05-0400 SaO2% (BldA) [Mass fraction] 97 % Dr. Aleena London Work Phone: [facility] Work Phone: 10-13-2021 09:05-0400 Systolic blood pressure 126 mm[Hg] Dr. Aleena London Work Phone: [facility] Work Phone: 10-11-2021 10:37-0400 Body mass index (BMI) [Ratio] 37.5 kg/m2 Dr. Aleena London Work Phone: [facility] Work Phone: 10-11-2021 10:37-0400 Body weight 105.[address] Aleena London Work Phone: [facility] Work Phone: 10-11-2021 10:37-0400 Diastolic blood pressure 82 mm[Hg] Dr. Aleena London Work Phone: [facility] Work Phone: 10-11-2021 10:37-0400 Systolic blood pressure 122 mm[Hg] Dr. Aleena London Work Phone: [facility] Work Phone: 10-11-2021 10:37-0400 Body height 167.[address] Aleena London Work Phone: [facility] Work Phone: 10-11-2021 10:37-0400 Body mass index (BMI) [Ratio] 37.5 kg/m2 Dr. Aleena London Work Phone: [facility] Work Phone: 10-11-2021 10:37-0400 Body weight 105.[address] Aleena London Work Phone: [facility] Work Phone: 10-11-2021 10:37-0400 Diastolic blood pressure 82 mm[Hg] Dr. Aleena London Work Phone: [facility] Work Phone: 10-11-2021 10:37-0400 Systolic blood pressure 122 mm[Hg] Dr. Aleena London Work Phone: [facility] Work Phone: 09-27-2021 14:08-0400 Body mass index (BMI) [Ratio] 37.8 kg/m2 Dr. Aleena London Work Phone: [facility] Work Phone: 09-27-2021 14:08-0400 Body weight 106.[address] Aleena London Work Phone: [facility] Work Phone: 09-27-2021 14:08-0400 Diastolic blood pressure 78 mm[Hg] Dr. Aleena London Work Phone: [facility] Work Phone: 09-27-2021 14:08-0400 Heart rate 74 /min Dr. Aleena London Work Phone: [facility] Work Phone: 09-27-2021 14:08-0400 Respiratory rate 18 /min Dr. Aleena London Work Phone: [facility] Work Phone: 09-27-2021 14:08-0400 SaO2% (BldA) [Mass fraction] 98 % Dr. Aleena London Work Phone: [facility] Work Phone: 09-27-2021 14:08-0400 Systolic blood pressure 114 mm[Hg] Dr. Aleena London Work Phone: [facility] Work Phone: 09-27-2021 14:08-0400 Body mass index (BMI) [Ratio] 37.8 kg/m2 Dr. Aleena London Work Phone: [facility] Work Phone: 09-27-2021 14:08-0400 Body weight 106.[address] Aleena London Work Phone: [facility] Work Phone: 09-27-2021 14:08-0400 Diastolic blood pressure 78 mm[Hg] Dr. Aleena London Work Phone: [facility] Work Phone: 09-27-2021 14:08-0400 Heart rate 74 /min Dr. Aleena London Work Phone: [facility] Work Phone: 09-27-2021 14:08-0400 Respiratory rate 18 /min Dr. Aleena London Work Phone: [facility] Work Phone: 09-27-2021 14:08-0400 SaO2% (BldA) [Mass fraction] 98 % Dr. Aleena London Work Phone: [facility] Work Phone: 09-27-2021 14:08-0400 Systolic blood pressure 114 mm[Hg] Dr. Aleena London Work Phone: [facility] Work Phone: 09-22-2021 14:55-0400 Body mass index (BMI) [Ratio] 37.9 kg/m2 Dr. Aleena London Work Phone: [facility] Work Phone: 09-22-2021 14:55-0400 Body temperature 98.7 [degF] Dr. Aleena London Work Phone: [facility] Work Phone: 09-22-2021 14:55-0400 Body weight 106.[address] Aleena London Work Phone: [facility] Work Phone: 09-22-2021 14:55-0400 Diastolic blood pressure 82 mm[Hg] Dr. Aleena London Work Phone: [facility] Work Phone: 09-22-2021 14:55-0400 Heart rate 88 /min Dr. Aleena London Work Phone: [facility] Work Phone: 09-22-2021 14:55-0400 Respiratory rate 14 /min Dr. Aleena London Work Phone: [facility] Work Phone: 09-22-2021 14:55-0400 SaO2% (BldA) [Mass fraction] 99 % Dr. Aleena London Work Phone: [facility] Work Phone: 09-22-2021 14:55-0400 Systolic blood pressure 114 mm[Hg] Dr. Aleena London Work Phone: [facility] Work Phone: 09-22-2021 14:55-0400 Body height 167.[address] Aleena London Work Phone: [facility] Work Phone: 09-22-2021 14:55-0400 Body mass index (BMI) [Ratio] 37.9 kg/m2 Dr. Aleena London Work Phone: [facility] Work Phone: 09-22-2021 14:55-0400 Body temperature 98.7 [degF] Dr. Aleena London Work Phone: [facility] Work Phone: 09-22-2021 14:55-0400 Body weight 106.[address] Aleena London Work Phone: [facility] Work Phone: 09-22-2021 14:55-0400 Diastolic blood pressure 82 mm[Hg] Dr. Aleena London Work Phone: [facility] Work Phone: 09-22-2021 14:55-0400 Heart rate 88 /min Dr. Aleena London Work Phone: [facility] Work Phone: 09-22-2021 14:55-0400 Respiratory rate 14 /min Dr. Aleena London Work Phone: [facility] Work Phone: 09-22-2021 14:55-0400 SaO2% (BldA) [Mass fraction] 99 % Dr. Aleena London Work Phone: [facility] Work Phone: 09-22-2021 14:55-0400 Systolic blood pressure 114 mm[Hg] Dr. Aleena London Work Phone: [facility] Work Phone: 09-15-2021 08:29-0400 Body mass index (BMI) [Ratio] 37.9 kg/m2 Dr. Aleena London Work Phone: [facility] Work Phone: 09-15-2021 08:29-0400 Body weight 106.[address] Aleena London Work Phone: [facility] Work Phone: 09-15-2021 08:29-0400 Diastolic blood pressure 82 mm[Hg] Dr. Aleena London Work Phone: [facility] Work Phone: 09-15-2021 08:29-0400 Heart rate 87 /min Dr. Aleena London Work Phone: [facility] Work Phone: 09-15-2021 08:29-0400 SaO2% (BldA) [Mass fraction] 98 % Dr. Aleena London Work Phone: [facility] Work Phone: 09-15-2021 08:29-0400 Systolic blood pressure 117 mm[Hg] Dr. Aleena London Work Phone: [facility] Work Phone: 09-15-2021 08:29-0400 Body mass index (BMI) [Ratio] 37.9 kg/m2 Dr. Aleena London Work Phone: [facility] Work Phone: 09-15-2021 08:29-0400 Body weight 106.[address] Aleena London Work Phone: [facility] Work Phone: 09-15-2021 08:29-0400 Diastolic blood pressure 82 mm[Hg] Dr. Aleena London Work Phone: [facility] Work Phone: 09-15-2021 08:29-0400 Heart rate 87 /min Dr. Aleena London Work Phone: [facility] Work Phone: 09-15-2021 08:29-0400 SaO2% (BldA) [Mass fraction] 98 % Dr. Aleena London Work Phone: [facility] Work Phone: 09-15-2021 08:29-0400 Systolic blood pressure 117 mm[Hg] Dr. Aleena London Work Phone: [facility] Work Phone: 09-09-2021 09:58-0400 Body mass index (BMI) [Ratio] 37.9 kg/m2 Dr. Aleena London Work Phone: [facility] Work Phone: 09-09-2021 09:58-0400 Body weight 106.[address] Aleena London Work Phone: [facility] Work Phone: 09-09-2021 09:58-0400 Diastolic blood pressure 79 mm[Hg] Dr. Aleena Londno Work Phone: [facility] Work Phone: 09-09-2021 09:58-0400 Systolic blood pressure 120 mm[Hg] Dr. Aleena London Work Phone: [facility] Work Phone: 09-09-2021 09:58-0400 Body mass index (BMI) [Ratio] 37.9 kg/m2 Dr. Aleena London Work Phone: [facility] Work Phone: 09-09-2021 09:58-0400 Body weight 106.[address] Aleena London Work Phone: [facility] Work Phone: 09-09-2021 09:58-0400 Diastolic blood pressure 79 mm[Hg] Dr. Aleena London Work Phone: [facility] Work Phone: 09-09-2021 09:58-0400 Systolic blood pressure 120 mm[Hg] Dr. Aleena London Work Phone: [facility] Work Phone: 09-07-2021 11:24-0400 Body temperature 98.2 [degF] Dr. Aleena London Work Phone: [facility] Work Phone: 09-07-2021 11:24-0400 Diastolic blood pressure 86 mm[Hg] Dr. Aleena London Work Phone: [facility] Work Phone: 09-07-2021 11:24-0400 Heart rate 109 /min Dr. Aleena London Work Phone: [facility] Work Phone: 09-07-2021 11:24-0400 Respiratory rate 16 /min Dr. Aleena London Work Phone: [facility] Work Phone: 09-07-2021 11:24-0400 SaO2% (BldA) [Mass fraction] 99 % Dr. Aleena London Work Phone: [facility] Work Phone: 09-07-2021 11:24-0400 Systolic blood pressure 132 mm[Hg] Dr. Aleena London Work Phone: [facility] Work Phone: 09-07-2021 11:24-0400 Body temperature 98.2 [degF] Dr. Aleena London Work Phone: [facility] Work Phone: 09-07-2021 11:24-0400 Diastolic blood pressure 86 mm[Hg] Dr. Aleena London Work Phone: [facility] Work Phone: 09-07-2021 11:24-0400 Heart rate 109 /min Dr. Aleena London Work Phone: [facility] Work Phone: 09-07-2021 11:24-0400 Respiratory rate 16 /min Dr. Aleena London Work Phone: [facility] Work Phone: 09-07-2021 11:24-0400 SaO2% (BldA) [Mass fraction] 99 % Dr. Aleena London Work Phone: [facility] Work Phone: 09-07-2021 11:24-0400 Systolic blood pressure 132 mm[Hg] Dr. Aleena London Work Phone: [facility] Work Phone: 08-25-2021 22:48-0400 Diastolic blood pressure 83 mm[Hg] Dr. Aleena London Work Phone: [facility] Work Phone: 08-25-2021 22:48-0400 Heart rate 98 /min Dr. Aleena London Work Phone: [facility] Work Phone: 08-25-2021 22:48-0400 SaO2% (BldA) [Mass fraction] 77 % Dr. Aleena London Work Phone: [facility] Work Phone: 08-25-2021 22:48-0400 Systolic blood pressure 114 mm[Hg] Dr. Aleena London Work Phone: [facility] Work Phone: 08-25-2021 22:11-0400 Body temperature 98.2 [degF] Dr. Aleena London Work Phone: [facility] Work Phone: 08-25-2021 22:01-0400 Body height 167.[address] Aleena London Work Phone: [facility] Work Phone: 08-25-2021 22:01-0400 Body mass index (BMI) [Ratio] 38 kg/m2 Dr. Aleena London Work Phone: [facility] Work Phone: 08-25-2021 22:01-0400 Body weight 107.[address] Aleena London Work Phone: [facility] Work Phone: 08-25-2021 22:01-0400 Respiratory rate 16 /min Dr. Aleena London Work Phone: [facility] Work Phone: 08-20-2021 18:00-0400 Body temperature 98.4 [degF] Dr. Aleena London Work Phone: [facility] Work Phone: 08-20-2021 18:00-0400 Diastolic blood pressure 80 mm[Hg] Dr. Aleena London Work Phone: [facility] Work Phone: 08-20-2021 18:00-0400 Heart rate 80 /min Dr. Aleena London Work Phone: [facility] Work Phone: 08-20-2021 18:00-0400 Respiratory rate 16 /min Dr. Aleena London Work Phone: [facility] Work Phone: 08-20-2021 18:00-0400 SaO2% (BldA) [Mass fraction] 100 % Dr. Aleena London Work Phone: [facility] Work Phone: 08-20-2021 18:00-0400 Systolic blood pressure 142 mm[Hg] Dr. Aleena London Work Phone: [facility] Work Phone: 08-20-2021 15:33-0400 Body height 167.[address] Aleena London Work Phone: [facility] Work Phone: 08-20-2021 15:33-0400 Body mass index (BMI) [Ratio] 38 kg/m2 Dr. Aleena London Work Phone: [facility] Work Phone: 08-20-2021 15:33-0400 Body weight 106.[address] Aleena London Work Phone: [facility] Work Phone: 08-11-2021 15:29-0400 Diastolic blood pressure 80 mm[Hg] Dr. Aleena London Work Phone: [facility] Work Phone: 08-11-2021 15:29-0400 Heart rate 90 /min Dr. Aleena London Work Phone: [facility] Work Phone: 08-11-2021 15:29-0400 Systolic blood pressure 120 mm[Hg] Dr. Aleena London Work Phone: [facility] Work Phone: 08-11-2021 15:29-0400 Diastolic blood pressure 80 mm[Hg] Dr. Aleena London Work Phone: [facility] Work Phone: 08-11-2021 15:29-0400 Heart rate 90 /min Dr. Aleena London Work Phone: [facility] Work Phone: 08-11-2021 15:29-0400 Systolic blood pressure 120 mm[Hg] Dr. Aleena London Work Phone: [facility] Work Phone: 08-11-2021 15:26-0400 Body mass index (BMI) [Ratio] 38.5 kg/m2 Dr. Aleena London Work Phone: [facility] Work Phone: 08-11-2021 15:26-0400 Body temperature 97.6 [degF] Dr. Aleena London Work Phone: [facility] Work Phone: 08-11-2021 15:26-0400 Body weight 108.[address] Aleena London Work Phone: [facility] Work Phone: 08-11-2021 15:26-0400 SaO2% (BldA) [Mass fraction] 98 % Dr. Aleena London Work Phone: [facility] Work Phone: 08-11-2021 15:26-0400 Body mass index (BMI) [Ratio] 38.5 kg/m2 Dr. Aleena London Work Phone: [facility] Work Phone: 08-11-2021 15:26-0400 Body temperature 97.6 [degF] Dr. Aleena London Work Phone: [facility] Work Phone: 08-11-2021 15:26-0400 Body weight 108.[address] Aleena London Work Phone: [facility] Work Phone: 08-11-2021 15:26-0400 SaO2% (BldA) [Mass fraction] 98 % Dr. Aleena London Work Phone: [facility] Work Phone: 08-09-2021 11:09-0400 Body mass index (BMI) [Ratio] 38.5 kg/m2 Dr. Aleena London Work Phone: [facility] Work Phone: 08-09-2021 11:09-0400 Body weight 108.[address] Aleena London Work Phone: [facility] Work Phone: 08-09-2021 11:09-0400 Diastolic blood pressure 78 mm[Hg] Dr. Aleena London Work Phone: [facility] Work Phone: 08-09-2021 11:09-0400 Systolic blood pressure 110 mm[Hg] Dr. Aleena London Work Phone: [facility] Work Phone: 08-09-2021 11:09-0400 Body mass index (BMI) [Ratio] 38.5 kg/m2 Dr. Aleena London Work Phone: [facility] Work Phone: 08-09-2021 11:09-0400 Body weight 108.[address] Aleena London Work Phone: [facility] Work Phone: 08-09-2021 11:09-0400 Diastolic blood pressure 78 mm[Hg] Dr. Aleena London Work Phone: [facility] Work Phone: 08-09-2021 11:09-0400 Systolic blood pressure 110 mm[Hg] Dr. Aleena London Work Phone: [facility] Work Phone: 07-15-2021 09:03-0500 Body mass index (BMI) [Ratio] 38.2 kg/m2 Dr. Aleena London Work Phone: [facility] Work Phone: 07-15-2021 09:03-0500 Body weight 107.[address] Aleena London Work Phone: [facility] Work Phone: 07-15-2021 09:03-0500 Diastolic blood pressure 88 mm[Hg] Dr. Aleena London Work Phone: [facility] Work Phone: 07-15-2021 09:03-0500 Heart rate 76 /min Dr. Aleena London Work Phone: [facility] Work Phone: 07-15-2021 09:03-0500 Respiratory rate 16 /min Dr. Aleena London Work Phone: [facility] Work Phone: 07-15-2021 09:03-0500 Systolic blood pressure 120 mm[Hg] Dr. Aleena London Work Phone: [facility] Work Phone: 06-29-2021 10:05-0500 Body mass index (BMI) [Ratio] 39.1 kg/m2 Dr. Aleena London Work Phone: [facility] Work Phone: 06-29-2021 10:05-0500 Body weight 109.[address] Aleena London Work Phone: [facility] Work Phone: 06-29-2021 10:05-0500 Diastolic blood pressure 74 mm[Hg] Dr. Aleena London Work Phone: [facility] Work Phone: 06-29-2021 10:05-0500 Heart rate 91 /min Dr. Aleena London Work Phone: [facility] Work Phone: 06-29-2021 10:05-0500 Respiratory rate 18 /min Dr. Aleena London Work Phone: [facility] Work Phone: 06-29-2021 10:05-0500 SaO2% (BldA) [Mass fraction] 96 % Dr. Aleena London Work Phone: [facility] Work Phone: 06-29-2021 10:05-0500 Systolic blood pressure 115 mm[Hg] Dr. Aleena London Work Phone: [facility] Work Phone: 06-28-2021 12:11-0500 Body temperature 97.4 [degF] Dr. Aleena London Work Phone: [facility] Work Phone: 06-28-2021 12:11-0500 Body weight 109.[address] Aleena London Work Phone: [facility] Work Phone: 06-28-2021 12:11-0500 Diastolic blood pressure 78 mm[Hg] Dr. Aleena London Work Phone: [facility] Work Phone: 06-28-2021 12:11-0500 Heart rate 98 /min Dr. Aleena London Work Phone: [facility] Work Phone: 06-28-2021 12:11-0500 Respiratory rate 16 /min Dr. Aleena London Work Phone: [facility] Work Phone: 06-28-2021 12:11-0500 SaO2% (BldA) [Mass fraction] 98 % Dr. Aleena London Work Phone: [facility] Work Phone: 06-28-2021 12:11-0500 Systolic blood pressure 140 mm[Hg] Dr. Aleena London Work Phone: [facility] Work Phone: 06-21-2021 19:21-0500 Heart rate 78 /min Dr. Aleena London Work Phone: [facility] Work Phone: 06-21-2021 19:21-0500 Respiratory rate 15 /min Dr. Aleena London Work Phone: [facility] Work Phone: 06-21-2021 19:21-0500 SaO2% (BldA) [Mass fraction] 99 % Dr. Aleena London Work Phone: [facility] Work Phone: 06-21-2021 15:48-0500 Body mass index (BMI) [Ratio] 39 kg/m2 Dr. Aleena London Work Phone: [facility] Work Phone: 06-21-2021 15:48-0500 Body temperature 96.8 [degF] Dr. Aleena London Work Phone: [facility] Work Phone: 06-21-2021 15:48-0500 Body weight 109.[address] Aleena London Work Phone: [facility] Work Phone: 06-21-2021 15:48-0500 Diastolic blood pressure 88 mm[Hg] Dr. Aleena London Work Phone: [facility] Work Phone: 06-21-2021 15:48-0500 Systolic blood pressure 132 mm[Hg] Dr. Aleena London Work Phone: [facility] Work Phone: 06-08-2021 08:36-0500 Body mass index (BMI) [Ratio] 39.2 kg/m2 Dr. Aleena London Work Phone: [facility] Work Phone: 06-08-2021 08:36-0500 Body temperature 99.8 [degF] Dr. Aleena London Work Phone: [facility] Work Phone: 06-08-2021 08:36-0500 Body weight 110.[address] Aleena London Work Phone: [facility] Work Phone: 06-08-2021 08:36-0500 Diastolic blood pressure 84 mm[Hg] Dr. Aleena London Work Phone: [facility] Work Phone: 06-08-2021 08:36-0500 Heart rate 85 /min Dr. Aleena London Work Phone: [facility] Work Phone: 06-08-2021 08:36-0500 Respiratory rate 16 /min Dr. Aleena London Work Phone: [facility] Work Phone: 06-08-2021 08:36-0500 SaO2% (BldA) [Mass fraction] 99 % Dr. Aleena London Work Phone: [facility] Work Phone: 06-08-2021 08:36-0500 Systolic blood pressure 140 mm[Hg] Dr. Aleena London Work Phone: [facility] Work Phone: 06-03-2021 07:14-0500 Body mass index (BMI) [Ratio] 38.9 kg/m2 Dr. Aleena London Work Phone: [facility] Work Phone: 06-03-2021 07:14-0500 Body temperature 98.2 [degF] Dr. Aleena London Work Phone: [facility] Work Phone: 06-03-2021 07:14-0500 Body weight 109.[address] Aleena London Work Phone: [facility] Work Phone: 06-03-2021 07:14-0500 Diastolic blood pressure 88 mm[Hg] Dr. Aleena London Work Phone: [facility] Work Phone: 06-03-2021 07:14-0500 Heart rate 83 /min Dr. Aleena London Work Phone: [facility] Work Phone: 06-03-2021 07:14-0500 Respiratory rate 14 /min Dr. Aleena London Work Phone: [facility] Work Phone: 06-03-2021 07:14-0500 SaO2% (BldA) [Mass fraction] 99 % Dr. Aleena London Work Phone: [facility] Work Phone: 06-03-2021 07:14-0500 Systolic blood pressure 146 mm[Hg] Dr. Aleena London Work Phone: [facility] Work Phone: 05-05-2021 09:43-0500 Body mass index (BMI) [Ratio] 38.9 kg/m2 Dr. Aleena London Work Phone: [facility] Work Phone: 05-05-2021 09:43-0500 Body temperature 98 [degF] Dr. Aleena London Work Phone: [facility] Work Phone: 05-05-2021 09:43-0500 Body weight 109.[address] Aleena London Work Phone: [facility] Work Phone: 05-05-2021 09:43-0500 Diastolic blood pressure 68 mm[Hg] Dr. Aleena London Work Phone: [facility] Work Phone: 05-05-2021 09:43-0500 Heart rate 72 /min Dr. Aleena London Work Phone: [facility] Work Phone: 05-05-2021 09:43-0500 Respiratory rate 16 /min Dr. Aleena London Work Phone: [facility] Work Phone: 05-05-2021 09:43-0500 SaO2% (BldA) [Mass fraction] 97 % Dr. Aleena London Work Phone: [facility] Work Phone: 05-05-2021 09:43-0500 Systolic blood pressure 110 mm[Hg] Dr. Aleena London Work Phone: [facility] Work Phone: 05-03-2021 08:06-0500 Body mass index (BMI) [Ratio] 38.7 kg/m2 Dr. Aleena London Work Phone: [facility] Work Phone: 05-03-2021 08:06-0500 Body temperature 98.7 [degF] Dr. Aleena London Work Phone: [facility] Work Phone: 05-03-2021 08:06-0500 Body weight 108.[address] Aleena London Work Phone: [facility] Work Phone: 05-03-2021 08:06-0500 Diastolic blood pressure 70 mm[Hg] Dr. Aleena London Work Phone: [facility] Work Phone: 05-03-2021 08:06-0500 Heart rate 92 /min Dr. Aleena London Work Phone: [facility] Work Phone: 05-03-2021 08:06-0500 Respiratory rate 16 /min Dr. Aleena London Work Phone: [facility] Work Phone: 05-03-2021 08:06-0500 SaO2% (BldA) [Mass fraction] 98 % Dr. Aleena London Work Phone: [facility] Work Phone: 05-03-2021 08:06-0500 Systolic blood pressure 106 mm[Hg] Dr. Aleena London Work Phone: [facility] Work Phone: 04-19-2017 11:55-0500 BMI (Body Mass Index) 38.51 kg/m2 Hanh Balderas NP [facility] 04-19-2017 11:55-0500 BP Diastolic 72 mm[Hg] Hanh Balderas NP [facility] 04-19-2017 11:55-0500 BP Systolic 113 mm[Hg] Hanh Balderas NP [facility] 04-19-2017 11:55-0500 Weight 108.23 kg Hanh Balderas NP [facility] 04-10-2017 05:19-0500 BMI (Body Mass Index) 38.73 kg/m2 Cassidy Moore MD [facility] 04-10-2017 05:19-0500 BP Diastolic 78 mm[Hg] Cassidy Moore MD [facility] 04-10-2017 05:19-0500 BP Systolic 123 mm[Hg] Cassidy Moore MD [facility] 04-10-2017 05:19-0500 Weight 108.86 kg Cassidy Moore MD [facility] 03-13-2017 09:06-0400 BMI (Body Mass Index) 38.83 kg/m2 Hanh Balderas NP [facility] 03-13-2017 09:06-0400 BP Diastolic 77 mm[Hg] Hanh Balderas NP [facility] 03-13-2017 09:06-0400 BP Systolic 122 mm[Hg] Hanh Balderas NP [facility] 03-13-2017 09:06-0400 Pulse (Heart Rate) 95 /min Hanh Balderas NP [facility] 03-13-2017 09:06-0400 Weight 109.14 kg Hanh Balderas NP [facility] [place] 02-17-2017 06:51-0400 BMI (Body Mass Index) 38.41 kg/m2 Cassidy Moore MD [facility] [place] 02-17-2017 06:51-0400 Body Temperature 98.4 [degF] Cassidy Moore MD [facility] [place] 02-17-2017 06:51-0400 BP Diastolic 79 mm[Hg] Cassidy Moore MD [facility] [place] 02-17-2017 06:51-0400 BP Systolic 113 mm[Hg] Cassidy Moore MD [facility] [place] 02-17-2017 06:51-0400 Pulse (Heart Rate) 97 /min Cassidy Moore MD [facility] [place] 02-17-2017 06:51-0400 Respiratory Rate 16 /min Cassidy Moore MD [facility] [place] 02-17-2017 06:51-0400 Weight 107.96 kg Cassidy Moore MD [facility] [place] 02-09-2017 11:21-0400 BMI (Body Mass Index) 38.51 kg/m2 Cassidy Moore MD [facility] [place] 02-09-2017 11:21-0400 Body Temperature 98.5 [degF] Cassidy Moore MD [facility] [place] 02-09-2017 11:21-0400 BP Diastolic 79 mm[Hg] Cassidy Moore MD [facility] [place] 02-09-2017 11:21-0400 BP Systolic 122 mm[Hg] Cassidy Moore MD [facility] [place] 02-09-2017 11:21-0400 Pulse (Heart Rate) 96 /min Cassidy Moore MD [facility] [place] 02-09-2017 11:21-0400 Respiratory Rate 16 /min Cassidy Moore MD [facility] [place] 02-09-2017 11:21-0400 Weight 108.23 kg Cassidy Moore MD [facility] [place] 01-17-2017 13:53-0400 BMI (Body Mass Index) 38.64 kg/m2 Hanh Balderas NP [facility] [place] 01-17-2017 13:53-0400 Body Temperature 98.2 [degF] Hanh Sherrie DIRECTOR OF ACADEMIC [facility] 01-17-2017 13:53-0400 BP Diastolic 85 mm[Hg] Hanh Valentine DIRECTOR OF AC[employer]EMIC [facility] 01-17-2017 13:53-0400 BP Systolic 127 mm[Hg] Hanh Valentine DIRECT[facility] OF [employer] [facility] 01-17-2017 13:53-0400 Height 167.64 cm Hanh Valentine DIRECT[facility] OF [employer] [facility] 01-17-2017 13:53-0400 Pulse (Heart Rate) 87 /min Hanh Valentine DIRECT[facility] OF [facility]EMIC [facility] 01-17-2017 13:53-0400 Respiratory Rate 16 /min Hanh Sherrie DIRECTOR OF AC[employer] [facility] 01-17-2017 13:53-0400 Weight 108.59 kg Hanh Valentine DIRECT[facility] OF [employer] [facility] 01-09-2017 15:06-0400 BMI (Body Mass Index) 38.6 kg/m2 Cassidy Moore MD [facility] [place] 01-09-2017 15:06-0400 Body Temperature 98.2 [degF] Cassidy Moore MD [facility] [place] 01-09-2017 15:06-0400 BP Diastolic 76 mm[Hg] Cassidy Moore MD [facility] [place] 01-09-2017 15:06-0400 BP Systolic 119 mm[Hg] Cassidy Moore MD [facility] [place] 01-09-2017 15:06-0400 Height 167.64 cm Cassidy Moore MD [facility] [place] 01-09-2017 15:06-0400 Pulse (Heart Rate) 111 /min Cassidy Moore MD [facility] [place] 01-09-2017 15:06-0400 Respiratory Rate 16 /min Cassidy Moore MD [facility] [place] 01-09-2017 15:06-0400 Weight 108.5 kg Cassidy Moore MD [facility] [place] Encounters Encounter Date Encounter Type Care Provider Facility Start: 06-04-2025 ambulatory Edmond Young Facility:[facility] Start: 03-27-2025 End: 03-27-2025 ambulatory Aleena London Facility:[facility] Start: 03-25-2025 ambulatory Efewongbe Oleghe Facili ty:[facility] Start: 03-25-2025 ambulatory Efewongbe Oleghe Facili ty:[facility] Start: 03-25-2025 End: 03-25-2025 ambulatory Efewongbe Oleghe Facility:[facility] Start: 03-19-2025 End: 03-19-2025 ambulatory Mark Anthony Haynes Facility:[facility] Start: 03-17-2025 End: 03-17-2025 ambulatory Efewongbe Dimitrye [facility] Start: 03-17-2025 End: 03-17-2025 ambulatory Greyson RUSH Facility:[facility] Start: 03-05-2025 End: 03-05-2025 ambulatory Efewongbe Johnghe Facility:[facility] Start: 03-03-2025 End: 03-03-2025 ambulatory Efewongbe Dimitrye [facility] Start: 02-19-2025 ambulatory Efewongbe Oleghe Facili ty:[facility] Start: 02-18-2025 ambulatory Greg Enrique [facility] Start: 02-18-2025 End: 02-18-2025 ambulatory Greg Enrique Facility:[facility] Start: 02-13-2025 End: 02-13-2025 ambulatory Lisa Berkowitz Facility:[facility] Start: 02-13-2025 End: 02-13-2025 ambulatory Tazjevon Johndignanannette Facility:[facility] Start: 02-12-2025 End: 02-13-2025 ambulatory Lisa Berkowitz Facility:[facility] Start: 02-11-2025 End: 02-11-2025 ambulatory Sigrid Ram [facility] Start: 02-06-2025 End: 02-06-2025 ambulatory Efromanongbe Dimitrye [facility] Start: 02-06-2025 End: 02-06-2025 ambulatory Antonio RUSH Facility:[facility] Start: 02-03-2025 ambulatory Greg Enrique [facility] Start: 02-03-2025 End: 02-03-2025 ambulatory Britany Nuñez Facility:[facility] Start: 01-30-2025 End: 01-30-2025 Emergency department patient visit Greg Melgar Facility:[facility] Start: 01-24-2025 End: 01-24-2025 ambulatory Efewongbe Oleghe [facility] Start: 01-22-2025 End: 01-22-2025 ambulatory Efewongbe Oleghe [facility] Start: 01-08-2025 End: 01-08-2025 ambulatory Efewongbe Oleghe [facility] Start: 01-06-2025 End: 01-06-2025 ambulatory Sigrid Leanna [facility] Start: 01-03-2025 End: 01-03-2025 ambulatory Sigrid Leanna Facility:[facility] Start: 12-20-2024 ambulatory Moreno Mostafa Facility :[facility] Start: 12-20-2024 End: 12-20-2024 Emergency department patient visit Adele Aguila Facility:[facility] Start: 12-20-2024 End: 12-20-[facility] Start: 12-17-2024 ambulatory Greg Enrique [facility] Start: 12-17-2024 End: 12-17-2024 ambulatory Juan J Moomaw Facility:[facility] Start: 12-17-2024 End: 12-17-2024 ambulatory Britany Nuñez Facility:[facility] Start: 12-12-2024 ambulatory Efewongbe Oleghe Facili ty:[facility] Start: 11-19-2024 End: 11-19-2024 ambulatory Efeweast peters[place]be Oledignae Facility:[facility] Start: 11-14-2024 End: 11-14-2024 ambulatory Efeweast peters[place]be Oledignae Facility:[facility] Start: 11-11-2024 End: 11-11-2024 ambulatory Sigrid Palafoxk [facility] Start: 11-08-2024 End: 11-08-2024 ambulatory Efewongbe Oleghe [facility] Start: 11-04-2024 End: 11-04-2024 [facility] Start: 11-02-2024 End: 11-02-2024 Emergency department patient visit Efewongbe Oleghe Facility:[facility] Start: 11-01-2024 ambulatory Greg Enrique [facility] Start: 11-01-2024 End: 11-01-2024 ambulatory Britany Nuñez Facility:[facility] Start: 10-10-2024 ambulatory Efewongbe Oleghe Facili ty:[facility] Start: 10-09-2024 End: 10-09-2024 ambulatory Efewongbe Oleghe [facility] Start: 10-09-2024 End: 10-09-2024 ambulatory Efewongbe Oleghe Facility:[facility] Start: 10-06-2024 End: 10-06-2024 Emergency department patient visit Chuck RodriguezKeo Facility:[facility] Start: 10-04-2024 End: 10-04-2024 Emergency department patient visit [facility] Start: 10-01-2024 End: 10-01-2024 ambulatory Efromanongbe Oleghe [facility] Start: 09-27-2024 ambulatory Efewongbe Oleghe Facili ty:[facility] Start: 09-25-2024 Encounter for gynecological examination (general) (routine) with abnormal findings Hanh Balderas NP [facility] Start: 09-25-2024 End: 09-25-2024 ambulatory Efewongbe Oleghe [facility] Start: 09-24-2024 End: 09-25-2024 ambulatory Efewongbe Oleghe Facility:[facility] Start: 09-24-2024 End: 09-24-2024 ambulatory Efewongbe Oleghe Facility:[facility] Start: 09-19-2024 ambulatory Efewongbe Oleghe Facili ty:[facility] Start: 09-19-2024 End: 09-19-2024 ambulatory Efewongbe Oleghe Facility:[facility] Start: 09-17-2024 ambulatory Efewongbe Oleghe Facili ty:[facility] Start: 09-17-2024 End: 09-17-2024 ambulatory Efewongbe Oleghe Facility:[facility] Start: 09-11-2024 End: 09-11-2024 ambulatory Efewongbe Oleghe [facility] Start: 09-04-2024 ambulatory Efewongbe Oleghe Facili ty:[facility] Start: 09-03-2024 End: 09-04-2024 ambulatory Efewongbe Oleghe Facility:[facility] Start: 09-03-2024 End: 09-03-2024 ambulatory Efewongbe Oleghe Facility:[facility] Start: 08-29-2024 End: 08-29-2024 Emergency department patient visit Efromanongnika Moraese Facility:[facility] Start: 08-27-2024 ambulatory Efewongbe Oleghe Facili ty:[facility] Start: 08-27-2024 End: 08-27-2024 ambulatory Efewongbe Oleghe Facility:[facility] Start: 08-21-2024 ambulatory Efewongbe Oleghe Facili ty:[facility] Start: 08-21-2024 End: 08-21-2024 ambulatory Efewongbe Oledignae Facility:[facility] Start: 08-20-2024 End: 08-20-2024 Emergency department patient visit [facility] Start: 08-17-2024 ambulatory Efewongbe Oleghe Facili ty:[facility] Start: 08-14-2024 End: 08-14-2024 ambulatory Efromanongbe Dimitrye [facility] Start: 08-12-2024 ambulatory Efewongbe Oleghe Facili ty:[facility] Start: 08-09-2024 End: 08-09-2024 ambulatory Efromanongbe Oleghe [facility] Start: 08-02-2024 End: 08-02-2024 ambulatory Efewongbe Oleghe [facility] Start: 07-25-2024 ambulatory Efewongbe Oleghe Facili ty:[facility] Start: 07-25-2024 End: 07-25-2024 Emergency department patient visit Efongbe Dimitrye Facility:[facility] Start: 07-09-2024 ambulatory Efewongbe Oleghe Facili ty:[facility] Start: 07-05-2024 ambulatory Efewongbe Oleghe Facili ty:[facility] Start: 07-01-2024 ambulatory Efewongbe Oleghe Facili [facility] Start: 07-01-2024 End: 07-01-2024 ambulatory Efewongbe Oleghe Facility:[facility] Start: 06-28-2024 End: 06-28-2024 Emergency department patient visit [facility] Facility:[facility] Start: 06-21-2024 End: 06-25-2024 [facility] Start: 06-21-2024 End: 06-21-2024 Office outpatient new 45 minutes Tomasz Seniorn DPM Work Phone: [facility] Comment on above: Plantar fasciitis (P rimary Dx) Start: 06-21-2024 End: 06-21-2024 ambulatory [facility] Start: 06-18-2024 End: 06-18-2024 Emergency department patient visit [facility] Facility:[facility] Start: 06-17-2024 End: 06-17-2024 Emergency department patient visit [facility] Facility:[facility] Start: 06-16-2024 End: 06-16-2024 Emergency department patient visit ADAN MOONEY [facility] Start: 06-13-2024 End: 06-13-2024 Emergency department patient visit ANDRIA CADE [facility] Start: 06-12-2024 ambulatory Braulioongnika Moraese Facili ty:[facility] Start: 06-11-2024 End: 06-11-2024 ambulatory [facility] Facility:[facility] Start: 06-10-2024 ambulatory Braulioeast petersburgnika [place] Facili ty:[facility] Start: 06-05-2024 End: 06-05-2024 Emergency department patient visit ULICES BALDERAS [facility] Start: 06-04-2024 End: 06-04-2024 ambulatory [facility] Facility:[facility] Start: 05-29-2024 End: 05-29-2024 ambulatory [facility] Start: 05-28-2024 End: 05-28-2024 Emergency department patient visit ARNOLDO CORCORAN [facility] Start: 05-27-2024 ambulatory Efewongbe Oleghe Facili [facility] Start: 05-27-2024 End: 05-27-2024 ambulatory Efewongbe Oleghe Facility:[facility] Start: 05-20-2024 End: 05-21-2024 Emergency department patient visit Efromanongbe Dimitrye Facility:[facility] Start: 05-18-2024 ambulatory Efewongbe Oleghe Facili ty:[facility] Start: 05-15-2024 End: 05-15-2024 Emergency department patient visit Braulioongnika Moraese Facility:[facility] Start: 05-09-2024 End: 05-10-2024 ambulatory Cassidy Moore Facility:[facility] Start: 05-09-2024 End: 05-09-2024 Emergency department patient visit LIBERTAD FOSTER [facility] Start: 05-06-2024 End: 05-06-2024 Emergency department patient visit Augie Adams Facility:[facility] Start: 05-03-2024 End: 05-03-2024 ambulatory Efewongbe Oleghe [facility] Start: 05-01-2024 End: 05-01-2024 ambulatory Efeweast [place]eters[place]be Oleghe Facility:[facility] Start: 04-25-2024 ambulatory Efewongbe Oleghe Facili [facility] Start: 04-25-2024 End: 04-25-2024 ambulatory Efeweast peters[place]be Oleghe Facility:[facility] Start: 04-23-2024 End: 04-23-2024 Emergency department patient visit Efromanongbe Dimitrye Facility:[facility] Start: 04-23-2024 End: 04-23-2024 ambulatory Efewongbe Oleghe Facility:[facility] Start: 04-16-2024 End: 04-16-2024 ambulatory Efewongbe Oleghe [facility] Start: 04-15-2024 End: 04-15-2024 Emergency department patient visit KAYLA TIJERINA [facility] Start: 04-09-2024 ambulatory Efewongbe Oleghe Facili [facility] Start: 04-09-2024 End: 04-09-2024 ambulatory Efewongbe Oleghe Facility:[facility] Start: 04-08-2024 End: 04-08-2024 Emergency department patient visit Efromanongbe Dimitrye Facility:[facility] Start: 04-01-2024 End: 04-01-2024 Emergency department patient visit RADHA GALLEGOS [facility] Start: 03-17-2024 End: 03-17-2024 Emergency department patient visit COREY MANTILLAJULIO CESAR PRETTY [facility] Start: 03-11-2024 End: 03-11-2024 Emergency department patient visit RADHA GALLEGOS [facility] Start: 03-07-2024 End: 03-07-2024 Emergency department patient visit LIBERTAD CLARK FOSTER [facility] Start: 03-04-2024 End: 03-04-2024 Emergency department patient visit ADAN MARCKRani MOONEY [facility] Start: 02-23-2024 End: 02-23-2024 Emergency department patient visit EBENEZER AKIRA [facility] Start: 02-20-2024 End: 02-20-2024 Emergency department patient visit RADHA MAKI [facility] Start: 02-14-2024 End: 02-14-2024 Emergency department patient visit LIBERTAD CLARK FOSTER [facility] Start: 02-11-2024 End: 02-11-2024 Emergency department patient visit BELKYS AVILA [facility] Start: 01-29-2024 End: 01-29-2024 [facility] Start: 01-16-2024 End: 01-16-2024 Emergency department patient visit NIKKI MILLER [facility] Start: 01-07-2024 End: 01-07-2024 Emergency department patient visit ANDRIA CADE [facility] Start: 12-01-2023 End: 12-01-2023 Emergency department patient visit BELKYS AVILA [facility] Start: 11-25-2023 End: 11-25-2023 Emergency department patient visit LIBERTAD CLARK [facility] Start: 11-20-2023 Orders Only Patrick perez Work Phone: [facility] Comment on above: Pain (Primary Dx) Start: 09-29-2023 End: 09-29-2023 Emergency department patient visit Dr. Aleena London Work Phone: [facility] Work Phone: Start: 09-29-2023 End: 09-29-2023 Dr. Aleena London Work Phone: [facility]-Emergency Department Work Phone: Start: 09-29-2023 Dr. Aleena London Work Phone: [facility]-Outpatient Breast Imaging Work Phone: Start: 09-21-2023 End: 09-21-[address] Aleena London Work Phone: [facility] Work Phone: Start: 09-21-2023 End: 09-21-2023 Dr. Aleena London Work Phone: [facility]-Laboratory, Specimen Work Phone: Start: 09-14-2023 End: 09-14-2023 Dr. Aleena London Work Phone: [facility] Internal Medicine Work Phone: Start: 09-14-2023 End: 09-14-2023 Dr. Aleena London Work Phone: [facility] Work Phone: Start: 09-11-2023 End: 09-11-2023 Dr. Aleena London Work Phone: [facility] Internal Medicine Work Phone: Start: 09-05-2023 End: 09-05-[address] Aleena London Work Phone: [facility] Work Phone: Start: 09-05-2023 End: 09-05-2023 Dr. Aleena London Work Phone: [facility] Women's Care Work Phone: Start: 09-05-2023 End: 09-05-2023 Dr. Aleena London Work Phone: [facility] Gastroenterology Work Phone: Start: 08-31-2023 End: 08-31-[address] Aleena London Work Phone: [facility] Work Phone: Start: 08-31-2023 End: 08-31-2023 Dr. Aleena London Work Phone: [facility]-Laboratory, Specimen Work Phone: Start: 08-30-2023 End: 08-30-2023 Dr. Aleena London Work Phone: [facility] Orthopaedic Specia Work Phone: Start: 08-18-2023 End: 08-18-2023 Dr. Aleena London Work Phone: [facility] Orthopaedic Specia Work Phone: Start: 08-16-2023 End: 08-16-2023 ambulatory Argelia Vasquez MD Work Phone: Gynecology Oncology Comment on above: NO SHOW (Primary Dx) Start: 08-16-2023 End: 08-16-2023 Patient encounter procedure Argelia Vasqeuz MD Work Phone: [facility] Start: 08-11-2023 End: 08-11-[address] Aleena London Work Phone: [facility] Work Phone: Start: 08-11-2023 End: 08-11-2023 Dr. Aleena London Work Phone: [facility] Work Phone: Start: 07-25-2023 End: 07-26-2023 Dr. Aleena London Work Phone: [facility]-Emergency Department Work Phone: Start: 07-24-2023 End: 07-24-[address] Aleena London Work Phone: [facility] Work Phone: Start: 07-24-2023 End: 07-24-2023 Dr. Aleena London Work Phone: [facility]-Ultrasound, [facility] Work Phone: Start: 07-18-2023 End: 07-18-2023 Emergency department patient visit Dr. Aleena London Work Phone: [facility] Work Phone: Start: 07-18-2023 End: 07-18-2023 Dr. Aleena London Work Phone: [facility]-Emergency Department Work Phone: Start: 07-18-2023 End: 07-18-2023 Dr. Aleena London Work Phone: [facility] Women's Care Work Phone: Start: 07-13-2023 End: 07-13-2023 Dr. Aleena London Work Phone: [facility] Work Phone: Start: 07-06-2023 End: 07-06-2023 Dr. Aleena London Work Phone: [facility] Orthopaedic Specia Work Phone: Start: 07-04-2023 End: 07-04-2023 Dr. Aleena London Work Phone: [facility] Internal Medicine Work Phone: Start: 06-29-2023 End: 06-29-2023 Dr. Aleena London Work Phone: [facility]-Emergency Department Work Phone: Start: 05-16-2023 End: 05-16-[address] Aleena London Work Phone: [facility] Work Phone: Start: 05-16-2023 End: 05-16-2023 Dr. Aleena London Work Phone: [facility] Work Phone: Start: 05-04-2023 End: 05-04-2023 Emergency department patient visit Dr. Aleena London Work Phone: [facility] Work Phone: Start: 05-04-2023 End: 05-04-2023 Dr. Aleena London Work Phone: [facility]-Emergency Department Work Phone: Start: 05-03-2023 End: 05-03-[address] Aleena London Work Phone: [facility] Work Phone: Start: 05-03-2023 End: 05-03-2023 Dr. Aleena London Work Phone: [facility] Gastroenterology Work Phone: Start: 04-19-2023 End: 04-19-2023 Dr. Aleena London Work Phone: [facility] Internal Medicine Work Phone: Start: 04-17-2023 Dr. Aleena London Work Phone: [facility] Start: 04-17-2023 End: 04-17-2023 Emergency department patient visit Dr. Aleena London Work Phone: [facility] Work Phone: Start: 04-17-2023 End: 04-17-2023 Dr. Aleena London Work Phone: [facility]-Emergency Department Work Phone: Start: 04-12-2023 Telephone encounter Fatmata maher MD Work Phone: [facility] Pelvic Health Comment on above: Referral Start: 04-11-2023 End: 04-11-[address] Aleena London Work Phone: [facility] Work Phone: Start: 04-11-2023 End: 04-11-2023 Dr. Aleena London Work Phone: [facility]-Outpatient Breast Imaging Work Phone: Start: 04-06-2023 End: 04-06-[address] Aleena London Work Phone: [facility] Work Phone: Start: 04-06-2023 End: 04-06-2023 Dr. Aleena London Work Phone: [facility] Work Phone: Start: 03-28-2023 End: 03-28-[address] Aleena London Work Phone: [facility] Work Phone: Start: 03-28-2023 End: 03-28-2023 Dr. Aleena London Work Phone: [facility]-Laboratory Work Phone: Start: 03-21-2023 End: 03-21-[address] Aleena London Work Phone: [facility] Work Phone: Start: 03-21-2023 End: 03-21-2023 Dr. Aleena London Work Phone: [facility]-Occupational Therapy Work Phone: Start: 03-16-2023 End: 03-16-2023 Dr. Aleena London Work Phone: [facility] Orthopaedic Specia Work Phone: Start: 03-09-2023 End: 03-09-[address] Aleena London Work Phone: [facility] Work Phone: Start: 03-09-2023 End: 03-09-2023 Dr. Aleena London Work Phone: [facility]patient Pav[facility] Ultrasound Work Phone: Start: 03-07-2023 End: 03-07-2023 Dr. Aleena London Work Phone: [facility] Work Phone: Start: 03-03-2023 End: 03-03-[address] Aleena London Work Phone: [facility] Work Phone: Start: 03-03-2023 End: 03-03-2023 Dr. Aleena London Work Phone: [facility]-Laboratory Work Phone: Start: 03-01-2023 End: 03-01-2023 Dr. Aleena London Work Phone: [facility] Orthopaedic Specia Work Phone: Start: 02-22-2023 End: 02-22-2023 Dr. Aleena London Work Phone: [facility] Orthopaedic Specia Work Phone: Start: 02-14-2023 End: 02-14-[address] Aleena London Work Phone: [facility] Work Phone: Start: 02-14-2023 End: 02-14-2023 Dr. Alenea London Work Phone: [facility]-Surgical Day Care Start: 02-13-2023 End: 02-13-2023 Dr. Aleena London Work Phone: [facility] Orthopaedic Specia Work Phone: Start: 02-10-2023 End: 02-10-2023 Dr. Aleena London Work Phone: [facility] Women's Care Work Phone: Start: 02-08-2023 End: 02-08-2023 Emergency department patient visit Dr. Aleena London Work Phone: [facility] Work Phone: Start: 02-08-2023 End: 02-08-2023 Dr. Aleena London Work Phone: [facility]-Emergency Department Work Phone: Start: 02-04-2023 End: 02-04-2023 Emergency department patient visit Dr. Aleena London Work Phone: [facility] Work Phone: Start: 02-04-2023 End: 02-04-2023 Dr. Aleena London Work Phone: [facility]-Emergency Department Work Phone: Start: 02-02-2023 Telephone encounter Nima Kaur MD Work Phone: [facility] [place] Comment on above: Patient Question Start: 01-16-2023 End: 01-16-2023 Dr. Aleena London Work Phone: [facility] Internal Medicine Work Phone: Start: 12-25-2022 End: 12-25-2022 Emergency department patient visit Dr. Aleena London Work Phone: [facility]-Emergency Department Work Phone: Start: 12-25-2022 End: 12-25-2022 Dr. Aleena London Work Phone: [facility]-Emergency Department Work Phone: Start: 12-15-2022 End: 12-15-[address] Aleena London Work Phone: [facility] Work Phone: Start: 12-15-2022 End: 12-15-[address] Aleena London Work Phone: [facility]-Laboratory, Specimen Work Phone: Start: 12-15-2022 End: 12-15-2022 Dr[facility] Start: 12-15-2022 End: 12-15-[address] Aleena London Work Phone: [facility] Work Phone: Start: 12-15-2022 End: 12-15-2022 Dr. Aleena London Work Phone: [facility] Work Phone: Start: 12-08-2022 End: 12-08-[address] Aleena London Work Phone: [facility] Work Phone: Start: 12-08-2022 End: 12-08-2022 Dr. Aleena London Work Phone: [facility] Work Phone: Start: 12-06-2022 End: 12-06-[address] Aleena London Work Phone: [facility] Work Phone: Start: 12-06-2022 End: 12-06-2022 Dr. Aleena London Work Phone: [facility] Work Phone: Start: 11-30-2022 End: 11-30-[address] Aleena London Work Phone: [facility] Gastroenterology Work Phone: Start: 11-30-2022 End: 11-30-2022 Dr. Aleena London Work Phone: [facility] Gastroenterology Work Phone: Start: 11-28-2022 End: 11-28-[address] Aleena London Work Phone: [facility] Work Phone: Start: 11-28-2022 End: 11-28-[address] Aleena London Work Phone: [facility] Work Phone: Start: 11-28-2022 End: 11-28-2022 Dr. Aleena London Work Phone: [facility] Work Phone: Start: 11-25-2022 End: 11-25-[address] Aleena London Work Phone: [facility] Work Phone: Start: 11-25-2022 End: 11-25-[address] Aleena London Work Phone: [facility] Work Phone: Start: 11-25-2022 End: 11-25-2022 Dr. Aleena London Work Phone: [facility] Work Phone: Start: 11-19-2022 End: 11-20-2022 Emergency department patient visit Dr. Aleena London Work Phone: [facility] Work Phone: Start: 11-19-2022 End: 11-20-2022 Dr. Aleena London Work Phone: [facility]-Emergency Department Work Phone: Start: 11-18-2022 End: 11-18-[address] Aleena London Work Phone: [facility] Orthopaedic [facility]ia Work Phone: Start: 11-18-2022 End: 11-18-2022 Dr. Aleena London Work Phone: [facility] Orthopaedic Specia Work Phone: Start: 11-16-2022 End: 11-16-2022 ambulatory LUKASZ EUBANKS Facility:[facility] Start: 11-16-2022 End: 11-16-2022 Office outpatient new 60 minutes Lukasz Eubanks MD Work Phone: [facility] Gynecology Oncology Comment on above: Pelvic pain in femal e (Primary Dx) Start: 11-08-2022 End: 11-08-2022 Emergency department patient visit Dr. Aleena London Work Phone: [facility] Work Phone: Start: 11-08-2022 End: 11-08-2022 Dr. Aleena London Work Phone: [facility]-Emergency Department Start: 10-24-2022 End: 10-24-[address] Aleena London Work Phone: [facility] [facility] Work Phone: Start: 10-24-2022 End: 10-24-2022 Dr. Aleena London Work Phone: [facility] Start: 10-11-2022 End: 10-12-2022 Emergency department patient visit ALEENA LONDON MD Facility:B Start: 10-07-2022 End: 10-07-[address] Aleena London Work Phone: [facility] Work Phone: Start: 10-07-2022 End: 10-07-[address] Aleena London Work Phone: [facility] Work Phone: Start: 10-07-2022 End: 10-07-2022 Dr. Aleena London Work Phone: [facility] Start: 09-20-2022 End: 09-20-[address] Aleena London Work Phone: [facility] Work Phone: Start: 09-20-2022 End: 09-20-2022 Dr. Aleena London Work Phone: [facility] Start: 09-02-2022 End: 09-02-[address] Aleena London Work Phone: [facility] Internal Medicine Work Phone: Start: 09-02-2022 End: 09-02-2022 Dr. Aleena London Work Phone: [facility] Internal Medicine Start: 08-26-2022 Non-patient / Non-visit Dr. Aleena London Work Phone: [facility] Start: 08-26-2022 End: 08-26-2022 Emergency department patient [facility] Start: 08-26-2022 End: 08-26-2022 Dr. Aleena London Work Phone: [facility] Start: 08-22-2022 End: 08-22-[address] [facility] Work Phone: Start: 08-22-2022 End: 08-22-2022 Dr. Aleena London [facility] Start: 08-17-2022 End: 08-18-2022 Emergency department patient visit Dr. Aleena London Work Phone: [facility] Work Phone: Start: 08-17-2022 End: 08-18-2022 Dr. Aleena London Work Phone: [facility] Start: 08-15-2022 End: 08-15-2022 Emergency department patient visit ALAN QUINN DO Facility:B Start: 08-15-2022 End: 08-15-2022 Emergency department patient visit ALAN QUINN DO [facility] Start: 08-08-2022 End: 08-08-[address] Aleena London Work Phone: [facility] Women[facility] Work Phone: Start: 08-08-2022 End: 08-08-2022 Dr. Aleena London Work Phone: [facility] Women[facility] Care Start: 07-25-2022 End: 07-25-[address] Aleena London Work Phone: [facility] Work Phone: Start: 07-25-2022 End: 07-25-2022 Dr. Aleena London Work Phone: [facility], [facility] Start: 07-17-2022 End: 07-17-2022 Emergency department patient visit Dr. Aleena London Work Phone: [facility] Work Phone: Start: 07-17-2022 End: 07-17-2022 Dr. Aleena London Work Phone: [facility]Emergency [facility] Start: 07-14-2022 End: 07-14-[address] Aleena London Work Phone: [facility] Work Phone: Start: 07-14-2022 End: 07-14-2022 Dr. Aleena London Work Phone: [facility]Laboratory Start: 07-13-2022 End: 07-13-[address] Aleena London Work Phone: [facility] Work Phone: Start: 07-13-2022 End: 07-13-2022 Dr. Aleena London Work Phone: [facility] Start: 07-04-2022 End: 07-05-2022 Emergency department patient visit Provider Pending Facility:[id number] Start: 06-29-2022 End: 06-29-2022 Dr. Aleena London Work Phone: [facility] Internal Medicine Start: 06-23-2022 End: 06-24-2022 Emergency department patient visit [facility] Start: 06-22-2022 End: 06-22-[address] Aleena London Work Phone: [facility] Work Phone: Start: 06-22-2022 End: 06-22-2022 Dr. Aleena London Work Phone: [facility], [facility] Start: 06-10-2022 End: 06-10-2022 Emergency department patient visit Dr. Aleena London Work Phone: [facility] Work Phone: Start: 06-10-2022 End: 06-10-2022 Dr. Aleena London Work Phone: [facility] Start: 05-30-2022 End: 05-30-[address] Aleena London Work Phone: [facility] Work Phone: Start: 05-30-2022 End: 05-30-2022 Dr. Aleena London Work Phone: [facility] Internal Medicine Start: 05-25-2022 End: 05-25-2022 Dr. Aleena London Work Phone: [facility] Women[facility] Care Start: 05-24-2022 End: 05-24-2022 Dr. Aleena London [facility] Start: 05-22-2022 End: 05-23-2022 Emergency department patient visit Dr. Aleena London Work Phone: [facility] Start: 05-22-2022 End: 05-23-2022 Dr. Aleena London Work Phone: [facility] Start: 05-04-2022 End: 05-04-[address] Aleena London Work Phone: [facility] Start: 05-04-2022 End: 05-04-2022 Dr. Aleena London Work Phone: [facility] Start: 04-20-2022 End: 04-20-[address] Aleena London Work Phone: [facility] Start: 04-20-2022 End: 04-20-2022 Dr. Aleena London Work Phone: [facility] Start: 04-19-2022 Non-patient / Non-visit Dr. Aleena London Work Phone: [facility] Start: 04-19-2022 Dr. Aleena London Work Phone: [facility] Start: 04-18-2022 End: 04-18-2022 Emergency department patient visit Dr. Aleena London Work Phone: [facility] Start: 04-18-2022 End: 04-18-2022 Dr. Aleena London Work Phone: [facility] Start: 04-16-2022 Non-patient / Non-visit Dr. Aleena London Work Phone: [facility] Start: 04-16-2022 Dr. Aleena London Work Phone: [facility] Start: 04-15-2022 End: 04-15-2022 Dr. Aleena London Work Phone: [facility] Start: 04-15-2022 Non-patient / Non-visit Dr. Aleena London Work Phone: [facility] Start: 04-15-2022 Dr. Aleena London Work Phone: [facility] Start: 04-14-2022 Non-patient / Non-visit Dr. Aleena London Work Phone: [facility] Start: 04-14-2022 Dr. Aleena London Work Phone: [facility] Start: 04-13-2022 Non-patient / Non-visit Dr. Aleena London Work Phone: [facility] Start: 04-13-2022 Dr. Aleena London Work Phone: [facility] Start: 04-12-2022 End: 04-16-2022 Evaluation and management of inpatient Dr. Aleena London [facility] Start: 04-12-2022 End: 04-16-2022 Dr. Aleena London Work Phone: [facility] Surgical 3 Start: 04-05-2022 End: 04-05-[address] Aleena London Work Phone: [facility] Start: 04-05-2022 End: 04-05-2022 Dr. Aleena London Work Phone: [facility] Start: 03-30-2022 End: 03-30-[address] Aleena London Work Phone: [facility] Work Phone: Start: 03-30-2022 End: 03-30-[address] Aleena London Work Phone: [facility]Laboratory, Specimen Start: 03-30-2022 End: 03-30-2022 Emergency department patient visit Dr. Aleena London Work Phone: [facility] Start: 03-30-2022 End: 03-30-2022 Dr. Aleena London Work Phone: [facility] Start: 03-30-2022 End: 03-30-[address] Aleena London Work Phone: [facility] Start: 03-30-2022 End: 03-30-2022 Dr. Aleena London Work Phone: [facility] Start: 03-23-2022 Non-patient / Non-visit Dr. Aleena London Work Phone: [facility] Start: 03-23-2022 Dr. Aleena London Work Phone: [facility] Start: 03-22-2022 Non-patient / Non-visit Dr. Aleena London Work Phone: [facility] Start: 03-22-2022 Dr. Aleena London Work Phone: [facility] Start: 03-22-2022 End: 03-23-2022 Evaluation and management of inpatient Dr. Aleena London [facility] Start: 03-22-2022 End: 03-23-2022 Dr. Aleena London [facility] Start: 03-12-2022 End: 03-12-2022 Emergency department patient visit Dr. Aleena London Work Phone: [facility] Start: 03-12-2022 End: 03-12-2022 Dr. Aleena London Work Phone: [facility] Start: 03-04-2022 End: 03-04-2022 Emergency department patient visit Dr. Aleena Lodnon Work Phone: [facility] Start: 03-04-2022 End: 03-04-2022 Dr. Aleena London Work Phone: [facility] Start: 03-02-2022 End: 03-02-[address] Aleena London Work Phone: [facility] Internal Medicine Start: 03-02-2022 End: 03-02-2022 Dr. Aleena London Work Phone: [facility] Internal Medicine Start: 03-02-2022 End: 03-04-2022 Non-patient / Non-visit Dr. Aleena London Work Phone: [facility] Start: 03-02-2022 End: 03-04-2022 Dr. Aleena London Work Phone: [facility] Start: 02-28-2022 End: 02-28-[address] Aleena London Work Phone: [facility] Start: 02-28-2022 End: 02-28-2022 Dr. Aleena London Work Phone: [facility] Start: 02-25-2022 End: 02-25-[address] Aleena London Work Phone: [facility] Start: 02-25-2022 End: 02-25-2022 Dr. Aleena London Work Phone: [facility] Start: 02-23-2022 End: 02-23-[address] Aleena London Work Phone: [facility] Work Phone: Start: 02-23-2022 End: 02-23-[address] Aleena London Work Phone: [facility] Services/Neurology Start: 02-23-2022 End: 02-23-2022 Dr. Aleena London [facility] Start: 02-23-2022 End: 02-23-[address] Aleena London Work Phone: [facility] Gastroenterology Start: 02-23-2022 End: 02-23-2022 Dr. Aleena London Work Phone: [facility] Gastroenterology Start: 02-15-2022 End: 02-15-2022 Emergency department patient visit Dr. Aleena London Work Phone: [facility] Start: 02-15-2022 End: 02-15-2022 Dr. Aleena London Work Phone: [facility] Start: 02-15-2022 End: 02-15-[address] Aleena London Work Phone: [facility] Start: 02-15-2022 End: 02-15-2022 Dr. Aleena London Work Phone: [facility] Start: 02-10-2022 End: 02-10-[address] Aleena London Work Phone: [facility] Start: 02-10-2022 End: 02-10-2022 Dr. Aleena London Work Phone: [facility] Start: 02-08-2022 End: 02-08-[address] Aleena London Work Phone: [facility] Internal Medicine Start: 01-13-2022 End: 01-13-[address] Aleena London Work Phone: [facility] Work Phone: Start: 01-13-2022 End: 01-13-[address] Aleena London Work Phone: [facility] Start: 01-11-2022 End: 01-11-[address] Aleena London Work Phone: [facility] Work Phone: Start: 01-11-2022 End: 01-11-[address] Aleena London Work Phone: [facility] Start: 01-03-2022 End: 01-03-[address] Aleena London Work Phone: [facility] Start: 12-30-2021 End: 12-30-[address] Aleena London Work Phone: [facility] Gastroenterology Start: 12-23-2021 End: 12-24-2021 Emergency department patient visit Dr. Aleena London Work Phone: [facility]Emer[facility] Start: 12-16-2021 End: 12-16-[address] Aleena London Work Phone: [facility] Women[facility] Start: 12-07-2021 End: 12-07-[address] Aleena London Work Phone: [facility] Start: 11-27-2021 End: 11-27-2021 Emergency department patient visit Dr. Aleena Leiva Phone: [facility]Emergency [facility] Start: 11-18-2021 End: 11-18-[address] Aleena Leiva Phone: [facility] Neurology Start: 11-18-2021 End: 11-18-[address] Aleena Leiva Phone: [facility] Internal Medicine Start: 11-01-2021 End: 11-01-[address] Aleena Leiva Phone: [facility] Internal Medicine Start: 10-29-2021 End: 10-29-[address] Aleena Leiva Phone: [facility] Start: 10-26-2021 Non-patient / Non-visit Dr. Aleena Leiva Phone: [facility] Start: 10-26-2021 End: 10-26-[address] Aleena Leiva Phone: [facility]Cardi[facility] Start: 10-15-2021 End: 10-15-[address] Aleena Leiva Phone: [facility] Internal Medicine Start: 10-13-2021 End: 10-13-[address] Aleena Leiva Phone: [facility] Start: 10-11-2021 End: 10-11-[address] Aleena Leiva Phone: [facility], Specimen Start: 10-11-2021 End: 10-11-[address] Aleena Leiva Phone: [facility] Womens [facility] Start: 09-29-2021 End: 09-29-[address] Aleena Leiva Phone: [facility]Physical Therapy Start: 09-27-2021 End: 09-27-[address] Aleena Leiva Phone: [facility] Start: 09-23-2021 End: 09-23-[address] Aleena Leiva Phone: [facility] Start: 09-22-2021 End: 09-22-[address] Aleena Leiva Phone: [facility] Internal Medicine Start: 09-15-2021 End: 09-15-[address] Aleena Leiva Phone: [facility] Gastroenterology Start: 09-09-2021 End: 09-09-[address] Aleena Leiva Phone: [facility] Start: 09-07-2021 End: 09-07-[address] Aleena Leiva Phone: [facility] Start: 08-25-2021 End: 08-25-2021 Emergency department patient visit Dr. Aleena Leiva Phone: [facility]Emergency [facility] Start: 08-20-2021 End: 08-20-2021 Emergency department patient visit Dr. Aleena Leiva Phone: [facility] Start: 08-11-2021 End: 08-11-[address] Aleena Leiva Phone: [facility] Internal Medicine Start: 08-11-2021 End: 08-11-[address] Aleena Leiva Phone: [facility] Gastroenterology Start: 08-09-2021 End: 08-09-[address] Aleena Leiva Phone: [facility] Start: 07-29-[address] Jorge London Work Phone: [facility] Start: 07-26-2021 End: 07-26-[address] Ale[facility] Start: 07-25-[address] Lindy Leiva [facility] Start: 07-16-2021 End: 07-16-[address] Aleena Leiva Phone: [facility] Start: 07-15-2021 End: 07-15-[address] Aleena Leiva Phone: [facility] Start: 07-06-2021 End: 07-06-[address] Aleena Leiva Phone: [facility] Start: 06-29-2021 End: 06-29-[address] Aleena London Work Phone: [facility] Gastroenterology Start: 06-28-2021 End: 06-28-[address] Aleena Leiva Phone: [facility] Internal Medicine Start: 06-21-2021 End: 06-21-2021 Emergency department patient visit Dr. Aleena London Work Phone: [facility]Emer[facility] Start: 06-11-2021 End: 06-11-[address] Aleena London Work Phone: [facility] Start: 06-08-2021 End: 06-08-[address] Aleena London Work Phone: [facility] Start: 06-03-2021 End: 06-03-[address] Aleena London Work Phone: [facility] Internal Medicine Start: 05-24-2021 End: 05-24-[address] Aleena London Work Phone: [facility], Spec[facility] Start: 05-05-2021 End: 05-05-[address] Aleena London Work Phone: [facility] Start: 05-03-2021 End: 05-03-[address] Aleena London Work Phone: [facility] Internal Medicine Start: 12-31-2020 End: 12-31-2020 Subsequent hospital visit by physician [facility] Work Phone: Radiology Comment on above: Acute pain of left s houlder [M25.512] Start: 06-25-2020 End: 06-25-2020 Subsequent hospital visit by physician Xr [facility] Work Phone: Radiology Comment on above: Bronchitis [J40] Start: 11-29-2017 End: 11-29-2017 Emergency department patient visit eDbora Quiroz Facility:[facility] Procedures Date Procedure Procedure Detail Performing [...] 04-19-2017 Routine OB Visit (Global) Hanh walter DIRECTOR OF ACADEMIC Work Phone: Start: 04-10-2017 End: 04-10-2017 Routine OB Visit (Global) Cassidy villatoro MD Work Phone: Start: 03-13-2017 End: 03-13-2017 Routine OB Visit (Global) Hanh Dionne Manav walter DIRECTOR OF ACADEMIC Work Phone: Start: 03-03-2017 End: 03-03-2017 Routine OB Visit (Global) Hanh Dionne Manav walter DIRECTOR OF ACADEMIC Work Phone: Start: 02-17-2017 End: 02-17-2017 Routine [...] Work Phone: Start: 01-09-2017 End: 01-09-2017 *GC/Chlamydia aCssidy Moore MD Work Phone: Start: 01-09-2017 End: [...] London Work Phone: Fracture of femur (disorder) [facility] Fracture of forearm (disorder) [facility] Investigation of tra nsfusion reaction Dr. Aleena [...] Activity Detail Author Start: 07-20-2053 Pneumococcal vaccination [facility] Comment on above: Postponed from 04/29 (Postponed To Appropriate Date) Start: 2047 RSV Immunization age d 60 or older (1 - 1-dose 60+ series) RSV Immunization aged 60 or older (1 - 1-dose 60+ series) [facility] Start: 2037 Zoster Vaccines (1 of 2) Zoste r Vaccines (1 of 2) [facility] Start: 08-11-2030 Tetanus vaccination Tetanus: Every 1 0yrs [facility] Start: 08-11-2030 Urine microalbumin profile DTa P,Tdap,Td Vaccine (2 - Td or Tdap) [facility] Start: 09-20-2024 End: 09-20-2024 Patient encounter procedure 09/20/2024 10:30 AM EDT Office Visit [facility] [address] [place] [id number] Tomasz Ace Jr., DPM [address] [place] [address] [facility] Start: 01-21-2024 Covid-19 Vaccine ( season) Covid-19 Vaccine ( season) [facility] Start: 01-21-2024 Influenza vaccination [facility] Start: 12-19-2023 End: 12-19-2023 Patient encounter procedure Radiology Comment on above: RT FOOT BONE SPUR RT FOOT PA INFUL SEVERE Start: 09-29-2023 [facility] Start: 09-28-2023 HPV Testing HPV Testing [facility] Start: 09-28-2023 Pap Testing Pap Testing [facility] Start: 09-28-2023 Screening for malign ant neoplasm of cervix [facility] Start: 09-05-2023 Chlamydia deoxyribon ucleic acid detection [facility] Start: 09-05-2023 Source specific culture [facility] Start: 09-05-2023 [facility] Start: 07-26-2023 [facility] Start: 07-18-2023 [facility] Start: 07-06-2023 Patient referral [facility] Work Phone: Start: 06-29-2023 [facility] Start: 05-16-2023 Ultrasound elastogra phy of liver [facility] Start: 05-04-2023 [facility] Start: 05-03-2023 Cytoplasmic ANCA Screen [facility] Start: 04-19-2023 Patient referral [facility] Work Phone: Start: 04-11-2023 Digital breast tomosynthesis bilateral [facility] Start: 03-16-2023 Patient referral [facility] Work Phone: Start: 02-14-2023 Anes nerve muscle td n fascia&bursa forearm wrist [facility] Start: 02-14-2023 Neuroplasty &/transp os median nrv carpal tunne [facility] Start: 02-14-2023 Application of ice c ollar, cap or bag [facility] Start: 02-14-2023 Catheterization of vein [facility] Start: 02-14-2023 Elevation of affecte d extremity [facility] Start: 02-14-2023 Following clinical p athway protocol [facility] Start: 02-14-2023 Patient discharge [facility] Start: 02-14-2023 Procedure discontinued [facility] Start: 02-14-2023 Taking patient vital signs [facility] Start: 02-14-2023 Vital signs measurements [facility] Start: 02-14-2023 [facility] Start: 02-14-2023 Medication education [facility] Start: 02-13-2023 Patient referral [facility] Work Phone: Start: 02-13-2023 X-ray of cervical spine [facility] Start: 02-13-2023 X-ray of lumbar spin e, two or three views [facility] Start: 02-13-2023 XR Cervical spine 2 or 3 Views [facility] Start: 02-13-2023 XR Lumbar spine 2 or 3 Views [facility] Start: 01-20-2023 Covid-19 Vaccine ( season) Covid-19 Vaccine ( season) [facility] Start: 01-20-2023 Influenza vaccination Influenza Vacc ine (#1) [facility] Start: 09-02-2022 Patient referral [facility] Work Phone: Start: 07-17-2022 Plain chest X-ray [facility] Start: 07-17-2022 XR Chest PA and Lateral [facility] Start: 07-14-2022 Celiac disease screen [facility] Start: 07-14-2022 [facility] Start: 05-30-2022 Patient referral [facility] Work Phone: Start: 04-16-2022 Patient discharge [facility] Start: 04-15-2022 Ambulation therapy management [facility] Start: 04-15-2022 Continuous pulse oximetry [facility] Start: 04-15-2022 Elevation of head of bed [facility] Start: 04-15-2022 Incentive spirometry [facility] Start: 04-15-2022 Measuring intake and output [facility] Start: 04-15-2022 Notification of physician [facility] Start: 04-15-2022 Oxygen therapy [facility] Start: 04-15-2022 Patient education [facility] Start: 04-15-2022 Procedures relating to eating and drinking [facility] Start: 04-15-2022 Taking patient vital signs [facility] Start: 04-15-2022 [facility] Start: 04-15-2022 Introduction of urin cori catheter [facility] Start: 04-14-2022 [facility] Work Phone: Start: 04-13-2022 Application of intermittent pneumatic compression device [facility] Start: 04-13-2022 Consultation [facility] Start: 04-13-2022 Catheterization of vein [facility] Start: 04-12-2022 Following clinical p athway protocol [facility] Start: 04-12-2022 Ambulation without limitation [facility] Start: 04-12-2022 Assessment of risk o f venous thromboembolism [facility] Start: 04-12-2022 Insertion of cathete r into peripheral vein [facility] Start: 04-12-2022 Providing care accor ding to standard [facility] Start: 04-12-2022 [facility] Start: 04-12-2022 Verification routine [facility] Work Phone: Start: 04-12-2022 Admission procedure [facility] Start: 04-12-2022 End: 04-12-2022 Blood culture [facility] Work Phone: Start: 04-12-2022 Patient referral to dietitian [facility] Start: 03-30-2022 Culture bacterial quanttative colony count urine [facility] Start: 03-30-2022 Culture bct isol&prs mptv id isolate ea urine [facility] Start: 03-23-2022 Patient discharge [facility] Start: 03-22-2022 Ambulation therapy management [facility] Start: 03-22-2022 Continuous pulse oximetry [facility] Start: 03-22-2022 Elevation of head of bed [facility] Start: 03-22-2022 Incentive spirometry [facility] Start: 03-22-2022 Measuring intake and output [facility] Start: 03-22-2022 Notification of physician [facility] Start: 03-22-2022 Oxygen therapy [facility] Start: 03-22-2022 Patient education [facility] Start: 03-22-2022 Procedures relating to eating and drinking [facility] Start: 03-22-2022 Taking patient vital signs [facility] Start: 03-22-2022 Wound care [facility] Start: 03-22-2022 [facility] Start: 03-22-2022 Introduction of urin cori catheter [facility] Start: 03-22-2022 Admission procedure [facility] Start: 03-04-2022 [facility] Start: 01-03-2022 Fat [Presence] in Stool [facility] Work Phone: Start: 10-23-2021 Annual PCP Team Staff Design Engineer sarai Disease Visit Annual PCP Team Chronic Disease Visit [facility] Start: 09-27-2021 Screening for malign ant neoplasm of cervix Cervical Cancer Screening [facility] Start: 09-22-2021 Patient referral [facility] Work Phone: Start: 08-11-2021 Patient referral [facility] Work Phone: Start: 06-03-2021 Patient referral [facility] Work Phone: Start: 05-10-2017 End: 05-10-2017 Appointment Appointment [facility] Start: 2017 Screening for malign ant neoplasm of cervix [facility] Start: 04-19-2017 End: 04-19-2017 Appointment Appointment [facility] Start: 04-10-2017 End: 04-10-2017 Appointment Appointment [facility] Start: 03-13-2017 End: 03-13-2017 Us preg uterus after 1st trimest 1/1st gestation US OB, >14 weeks [facility] Start: 03-13-2017 End: 03-13-2017 Appointment Appointment [facility] Start: 03-10-2017 End: 03-10-2017 Appointment Appointment [facility] Start: 03-03-2017 End: 03-13-2017 Us abdominal real time w/image limited US Kidney [facility] Start: 03-03-2017 End: 03-03-2017 Appointment Appointment [facility] [place] Start: 03-01-2017 End: 03-01-2017 Appointment Appointment [facility] [place] Start: 02-17-2017 End: 02-17-2017 Mri brain brain stem w/o contrast material MRI Brain [facility] Work Phone: Start: 02-17-2017 End: 02-17-2017 Appointment [facility] Start: 02-17-2017 End: 02-17-2017 Mri brain w/o dye MRI Brain [facility] Start: 02-09-2017 End: 02-09-2017 *CBC with Differential *CBC with Differential [facility] [place] Start: 02-09-2017 End: 02-09-2017 *GC/Chlamydia *GC/Chlamydia [facility] [place] Start: 02-09-2017 End: 02-11-2017 *HEBSAG - Hep B Surface Antigen 6510 *HEBSAG - Hep B Surface Antigen 6510 [facility] [place] Start: 02-09-2017 End: 02-11-2017 *HIV antibody *HIV antibody [facility] [place] Start: 02-09-2017 End: 02-09-2017 *TS Type and Screen *TS Type and Screen [facility] Start: 02-09-2017 End: 02-09-2017 Hemoglobin A1c/Hemoglobin.total mass fraction (Bld) *HgA1C [facility] Start: 02-09-2017 End: 02-11-2017 Reagin antibody presence *RPR [facility] Start: 02-09-2017 End: 02-11-2017 Rubella virus Ab [Units/volume] in Serum *Rubella Screen [facility] Start: 02-09-2017 End: 02-09-2017 Urine culture, bacteria *CUUR - Culture, Urine ([place] Count) [facility] Start: 02-09-2017 End: 03-13-2017 Us preg uterus after 1st trimest 1/ gestation US OB, >14 weeks [facility] Start: 02-09-2017 End: 02-09-2017 Appointment Appointment [facility] [place] Start: 02-09-2017 End: 02-09-2017 *CBC with Differential *CBC with Differential [facility] [place] Start: 02-09-2017 End: 02-09-2017 *GC/Chlamydia *GC/Chlamydia [facility] Start: 02-09-2017 End: 02-11-2017 *HEBSAG - Hep B Surface Antigen 6510 *HEBSAG - Hep B Surface Antigen 6510 [facility] Start: 02-09-2017 End: 02-11-2017 *HIV antibody *HIV antibody [facility] Start: 02-09-2017 End: 02-09-2017 *TS Type and Screen *TS Type and Screen [facility] [place] Start: 02-09-2017 End: 02-09-2017 HbA1c *HgA1C [facility] [place] Start: 02-09-2017 End: 02-09-2017 Ob us >/= 14 wks, sngl fetus US OB, >14 weeks [facility] Start: 02-09-2017 End: 02-11-2017 Reagin antibody presence *RPR [facility] Start: 02-09-2017 End: 02-11-2017 Rubella virus Ab [Units/volume] in Serum *Rubella Screen [facility] [place] Start: 02-09-2017 End: 02-09-2017 Urine culture, bacteria *CUUR - Culture, Urine ([place] Count) [facility] [place] Start: 02-06-2017 End: 02-09-2017 Thyroid stimulating hormone (TSH) *TSH [facility] Start: 02-06-2017 End: 02-09-2017 Thyroxine (T4) *T4 TT4 (Thyroxine Total) [facility] Start: 02-06-2017 End: 02-09-2017 Thyroid stimulating hormone (TSH) *TSH [facility] [place] Start: 02-06-2017 End: 02-09-2017 Thyroxine (T4) *T4 TT4 (Thyroxine Total) [facility] Start: 01-17-2017 End: 01-17-2017 Bacteria genital culture *CUV - Culture, VAG/CX Comprehensive [facility] [place] Start: 01-17-2017 End: 01-17-2017 Appointment Appointment [facility] [place] Start: 01-17-2017 End: 01-17-2017 Bacteria genital culture *CUV - Culture, VAG/CX Comprehensive [facility] [place] Start: 01-09-2017 End: 01-09-2017 Appointment Appointment [facility] [place] Start: 01-09-2017 End: 01-09-2017 *ABS Antibody Screen, Indirect *ABS Antibody Screen, Indirect [facility] [place] Start: 01-09-2017 End: 01-09-2017 *Blood Typing, RH *Blood Typing, RH [facility] [place] Start: 01-09-2017 End: 01-09-2017 *CBC with Differential *CBC with Differential [facility] [place] Start: 01-09-2017 End: 01-09-2017 *GC/Chlamydia *GC/Chlamydia [facility] [place] Start: 01-09-2017 End: 01-09-2017 *HEBSAG - Hep B Surface Antigen 6510 *HEBSAG - Hep B Surface Antigen 6510 [facility] [place] Start: 01-09-2017 End: 01-09-2017 *HIV antibody *HIV antibody [facility] [place] Start: 01-09-2017 End: 01-09-2017 *TS Type and Screen *TS Type and Screen [facility] [place] Start: 01-09-2017 End: 01-09-2017 GTT (glucose after 1hr PO glucose) *Glucose, Post Glucose Dose [facility] [place] Start: 01-09-2017 End: 01-09-2017 Reagin antibody presence *RPR [facility] [place] Start: 01-09-2017 End: 01-09-2017 Rubella virus Ab [Units/volume] in Serum *Rubella Screen [facility] [place] Start: 01-09-2017 End: 01-09-2017 Thyroid stimulating hormone (TSH) *TSH [facility] [place] Start: 01-09-2017 End: 01-09-2017 Thyroxine (T4) *T4 TT4 (Thyroxine Total) [facility] [place] Start: 01-09-2017 End: 01-09-2017 Urine culture, bacteria *CUUR - Culture, Urine ([place] Count) [facility] [place] Start: 01-09-2017 End: 01-09-2017 *ABS Antibody Screen, Indirect *ABS Antibody Screen, Indirect [facility] [place] Start: 01-09-2017 End: 01-09-2017 *Blood Typing, RH *Blood Typing, RH [facility] Start: 01-09-2017 End: 01-09-2017 *CBC with Differential *CBC with Differential [facility] Start: 01-09-2017 End: 01-09-2017 *GC/Chlamydia *GC/Chlamydia [facility] Start: 01-09-2017 End: 01-09-2017 *HEBSAG - Hep B Surface Antigen 6510 *HEBSAG - Hep B Surface Antigen 6510 [facility] Start: 01-09-2017 End: 01-09-2017 *HIV antibody *HIV antibody [facility] Start: 01-09-2017 End: 01-09-2017 *TS Type and Screen *TS Type and Screen [facility] Start: 01-09-2017 End: 01-09-2017 GTT (glucose after 1hr PO glucose) *Glucose, Post Glucose Dose [facility] Start: 01-09-2017 End: 01-09-2017 Reagin antibody presence *RPR [facility] Start: 01-09-2017 End: 01-09-2017 Rubella virus Ab [Units/volume] in Serum *Rubella Screen [facility] Start: 01-09-2017 End: 01-09-2017 Thyroid stimulating hormone (TSH) *TSH [facility] Start: 01-09-2017 End: 01-09-2017 Thyroxine (T4) *T4 TT4 (Thyroxine Total) [facility] Start: 01-09-2017 End: 01-09-2017 Urine culture, bacteria *CUUR - Culture, Urine ([place] Count) [facility] Start: 01-02-2017 End: 01-09-2017 Us uterus 14 wk transabdl 05/22 gestat US OB, <14 weeks [facility] Start: 01-02-2017 End: 01-09-2017 Ob us < 14 wks, single fetus US OB, <14 weeks [facility] Start: 2008 Screening for malign ant neoplasm of cervix Pap Smear [facility] Start: 2006 DTaP/Tdap/Td Vaccine s (1 - Tdap) DTaP/Tdap/Td Vaccines (1 - Tdap) [facility] Start: 2006 Hepatitis B Vaccine (1 of 3 - 19+ 3-dose series) Hepatitis B Vaccine (1 of 3 - 19+ 3-dose series) [facility] Start: 2006 Pneumococcal Vaccine : Ped or At-Risk (1 of 2 - PCV) Pneumococcal Vaccine: Ped or At-Risk (1 of 2 - PCV) [facility] Start: 2005 Anxiety Screening Anxiety Screening [facility] Start: 2005 Depression Screening Depression Scre ening [facility] Start: 2005 Hepatitis C screening Hepatitis C Sc reening [facility] Start: 2002 HIV screening HIV Screening [facility] Start: 1999 Depression Screening [facility] Start: 1990 History and physical examination, annual for health maintenance Wellness Visit [facility] Start: 1988 MMR Vaccines (1 of 1 - Standard series) MMR Vaccines (1 of 1 - Standard series) [facility] Start: 1988 Varicella vaccination Varicell a Vaccines (1 of 2 - 2-dose childhood series) [facility] Start: 1987 Covid-19 Vaccine (#1) Covid-19 Vacci ne (#1) [facility] Start: 1987 Hepatitis B Vaccine (1 of 3 - 3-dose series) Hepatitis B Vaccine (1 of 3 - 3-dose series) [facility] Start: 1987 Hepatitis B Vaccines (1 of 3 - 3-dose series) Hepatitis B Vaccines (1 of 3 - 3-dose series) [facility] Start: 1987 HIV screening HIV Screening [facility] Anaerobic Culture Anaerobic Culture [facility] Work Phone: Anaerobic microbial culture Anaerobic Culture [facility] Work Phone: Antibody to lupus La protein measurement [facility] Antibody to SS-A measurement [facility] Bacteria identified in Blood by Culture Blood Culture [facility] Work Phone: Bacteria identified in Unspecified specimen by Anaerobe culture [facility] Work Phone: Blood culture [facility] Work Phone: Centromere protein B Ab [Units/volume] in Serum [facility] Chromatin Ab [Units/volume] in Serum or Plasma [facility] DNA double strand Ab [Units/volume] in Serum [facility] Fat [Mass/mass] in Stool [facility] Work Phone: Fat.neutral [Presenc e] in Stool [facility] Work Phone: Alise-1 extractable nuc lear Ab [Units/volume] in Serum [facility] Lipid 1996 panel - S luisa or Plasma [facility] Measurement of immunoglobulin A in serum specimen [facility] Microbial culture, routine Wound Culture [facility] Work Phone: MR Biliary ducts and Pancreatic duct WO contrast [facility] Work Phone: Neisseria gonorrhoea e rRNA [Presence] in Unspecified specimen by JONE with probe detection [facility] Neutrophil cytoplasm ic Ab.classic [Units/volume] in Serum [facility] P-ANCA measurement [facility] Patient Education [facility] Work Phone: Patient referral [facility] Work Phone: PCR test for Chlamyd ia trachomatis [facility] Radionuclide gastric emptying study [facility] Work Phone: Radionuclide gastric emptying study [facility] Radionuclide imaging of liver and/or biliary tract using radioactive isotope [facility] Work Phone: SCL-70 extractable n uclear Ab [Units/volume] in Serum by Immunoassay [facility] [place] extractable nu clear Ab [Presence] in Serum [facility] Tissue transglutamin ase IgA Ab [Units/volume] in Serum [facility] Tissue transglutamin ase IgG Ab [Units/volume] in Serum [facility] Ultrasound elastography [facility] Work Phone: Ultrasound elastography [facility] Urine test [facility] Work Phone: US Abdomen limited [facility] US Pelvis [facility] US Pelvis [facility] US Pelvis transvaginal [facility] US Pelvis transvaginal [facility] End: 12-19-2024 XR Foot - right AP and Lateral and oblique XR FOOT GENERAL 3V AP/LAT/OBL RIGHT Radiology Routine Pain 1 Occurrences starting 11/20/2023 until 12/19/2024 [facility] Work Phone: Comment on above: 1 Occurrences starti ng 11/20/2023 until 12/19/2024 [facility] Immunizations Immunization Date Immunization Notes Care Provider Fa cilicole 08-11-2020 tetanus toxoid, redu wendy diphtheria toxoid, and acellular pertussis vaccine, adsorbed Dr. Aleena London Work Phone: [facility] 04-16-2019 influenza virus vaccine, unspecified formulation Nima Kaur MD Work Phone: [facility] 08-29-2012 RHO(D) immune globul in- IV or IM Nima Kaur MD Work Phone: [facility] Work Phone: 06-22-2012 RHO(D) immune globul in- IV or IM Nima Kaur MD Work Phone: [facility] 06-02-2012 RHO(D) immune globul in- IV or IM Nima Kaur MD Work Phone: [facility] Payers Date Payer Category Payer Unknown [id number] 02-10-2025 Unknown [id number] 02-06-2025 Unknown [id number] 05-06-2024 Unknown [id number] 02-02-2024 Self-pay [id number] 08-20-2021 Medicaid (Managed Care) [facility] MEDICAID [id number] 08-20-2021 Unknown [id number] 07-20-2020 Medicaid [id number] 09-20-2019 Private Health Insurance [facility] [id number] 09/20/2019-05/21/2020 [address] [address] [place] [address] HMO [id number] 11-29-2017 Unknown 08-20-2016 Unknown [id number] 1987 Unknown [id number] 2.16.840.1.176115.3.579.2. 1069 1987 Unknown [id number] 2.16.840.1.129522.3.579.2. 903 1987 Unknown [id number] 2.16.840.1.069435.3.579.2. 627 1987 Unknown [id number] 2.16.840.1.721646.3.579.2. 627 1987 Unknown [id number] 2.16.840.1.300870.3.579.2. 903 1987 Unknown [id number] 2.16.840.1.994913.3.579.2. 903 1987 Unknown [id number] 2.16.840.1.695989.3.579.2. 903 1987 Unknown [id number] 2.16.840.1.272510.3.579.2. 902 1987 Unknown [id number] 2.16.840.1.137145.3.579.2. 902 1987 Unknown [id number] 2.16.840.1.637634.3.579.2. 902 1987 Unknown [id number] 2.16.840.1.560377.3.579.2. 902 1987 Unknown [id number] 2.16.840.1.292023.3.579.2. 902 1987 Unknown [id number] 2.16.840.1.649949.3.579.2. 902 1987 Unknown [id number] 2.16.840.1.389967.3.579.2. 902 1987 Unknown [id number] 2.16.840.1.667093.3.579.2. 902 1987 Unknown [id number] 2.16.840.1.734966.3.579.2. 902 1987 Unknown [id number] 2.16.840.1.019267.3.579.2. 902 1987 Unknown [id number] 2.16.840.1.782388.3.579.2. 902 1987 Unknown [id number] 2.16.840.1.966860.3.579.2. 902 1987 Unknown [id number] 2.16.840.1.258013.3.579.2. 902 1987 Unknown [id number] 2.16.840.1.314319.3.579.2. 902 1987 Unknown [id number] 2.16.840.1.484816.3.579.2. 902 1987 Unknown [id number] 2.16.840.1.133411.3.579.2. 902 1987 Unknown [id number] 2.16.840.1.850251.3.579.2. 902 1987 Unknown [id number] 2.16.840.1.137632.3.579.2. 902 1987 Unknown [id number] 2.16.840.1.427850.3.579.2. 902 1987 Unknown [id number] 2.16.840.1.580864.3.579.2. 902 1987 Unknown [id number] 2.16.840.1.377161.3.579.2. 902 1987 Unknown [id number] 2.16.840.1.382838.3.579.2. 902 1987 Unknown [id number] 2.16.840.1.170664.3.579.2. 902 Unknown [id number] Unknown [id number] Unknown [id number] 2.16.840.1.398697.3.579.2. 462 Unknown [id number] 2.16.840.1.532463.3.579.2. 462 Unknown [id number] 2.16840.1.149876.3.579.2. 462 Unknown [id number] 2.16840.1.710529.3.579.2. 462 Unknown [id number] 2.16.840.1.503320.3.579.2. 462 Unknown [id number] 2.16.840.1.897017.3.579.2. 462 Unknown [id number] 2.16.840.1.056388.3.579.2. 462 Unknown [id number] 2.16.840.1.605534.3.579.2. 462 Unknown [id number] 2.16.840.1.713792.3.579.2. 462 Unknown [id number] 2.16.840.1.890603.3.579.2. 462 Unknown [id number] 2.16840.1.322434.3.579.2. 462 Unknown [id number] 2.16.840.1.293002.3.579.2. 462 Unknown [id number] 2.840.1.274071.3.579.2. 462 Unknown [id number] 2.840.1.602598.3.579.2. 462 Unknown [id number] 2.840.1.731850.3.579.2. 462 Unknown [id number] 2.840.1.448236.3.579.2. 462 Unknown [id number] 2.840.1.651075.3.579.2. 462 Unknown [id number] 2.840.1.870107.3.579.2. 462 Unknown [id number] 2.840.1.326826.3.579.2. 462 Unknown [id number] 2.840.1.306820.3.579.2. 462 Unknown [id number] 2.840.1.439145.3.579.2. 462 Unknown [id number] 2.840.1.834445.3.579.2. 462 Unknown [id number] 2.840.1.464783.3.579.2. 462 Unknown [id number] 2.840.1.311917.3.579.2. 462 Unknown [id number] 2.840.1.429654.3.579.2. 462 Unknown [id number] 2.840.1.165065.3.579.2. 462 Unknown [id number] 2.840.1.419571.3.579.2. 462 Unknown [id number] 2.16.840.1.891692.3.579.2. 462 Unknown [id number] 2.16.840.1.603757.3.579.2. 462 Unknown [id number] 2.16.840.1.116546.3.579.2. 462 Unknown [id number] 2.16.840.1.703418.3.579.2. 462 Unknown [id number] 2.16.840.1.442435.3.579.2. 462 Unknown [id number] 2.16.840.1.304879.3.579.2. 462 Unknown [id number] 2.16.840.1.362687.3.579.2. 462 Unknown [id number] 2.16.840.1.363043.3.579.2. 462 Unknown [id number] 2.16840.1.939220.3.579.2. 462 Unknown [id number] 2.16.840.1.877978.3.579.2. 462 Unknown [id number] 2.16.840.1.554785.3.579.2. 462 Unknown [id number] 2.16.840.1.027244.3.579.2. 462 Unknown [id number] 2.16.840.1.099252.3.579.2. 462 Unknown [id number] 2.840.1.438043.3.579.2. 462 Unknown [id number] 2.16.840.1.074756.3.579.2. 462 Unknown [id number] 2.16.840.1.064145.3.579.2. 462 Unknown [id number] 2.16.840.1.242438.3.579.2. 462 Unknown [id number] 2.16.840.1.586701.3.579.2. 462 Unknown [id number] 2.16.840.1.964077.3.579.2. 462 Unknown [id number] 2.16.840.1.471303.3.579.2. 462 Unknown [id number] 2.16.840.1.312455.3.579.2. 462 Unknown [id number] 2.16.840.1.172731.3.579.2. 462 Unknown [id number] 2.16.840.1.702329.3.579.2. 462 Unknown [id number] 2.16.840.1.528239.3.579.2. 462 Unknown [id number] 2.16840.1.133886.3.579.2. 462 Unknown [id number] 2.840.1.833698.3.579.2. 462 Unknown [id number] 2.840.1.185205.3.579.2. 462 Unknown [id number] 2.840.1.172265.3.579.2. 462 Unknown [id number] 2.840.1.622131.3.579.2. 462 Unknown [id number] 2.840.1.441901.3.579.2. 462 Unknown [id number] 2.840.1.373356.3.579.2. 462 Unknown [id number] 2.840.1.452271.3.579.2. 462 Unknown [id number] 2.840.1.714971.3.579.2. 462 Unknown [id number] 2.16840.1.315880.3.579.2. 462 Unknown [id number] 2.16840.1.550174.3.579.2. 462 Unknown [id number] 2.840.1.083832.3.579.2. 462 Unknown [id number] 2.16840.1.660836.3.579.2. 462 Unknown [id number] 2.16.840.1.142339.3.579.2. 462 Unknown [id number] 2.16.840.1.779457.3.579.2. 462 Unknown [id number] 2.16.840.1.652575.3.579.2. 462 Unknown [id number] 2.16.840.1.327814.3.579.2. 462 Unknown [id number] 2.16.840.1.022435.3.579.2. 462 Unknown [id number] 2.16.840.1.191334.3.579.2. 462 Unknown [id number] 2.16.840.1.784899.3.579.2. 462 Unknown [id number] 2.16.840.1.437980.3.579.2. 462 Unknown [id number] 2.16.840.1.241575.3.579.2. 462 Unknown [id number] 2.16.840.1.721745.3.579.2. 462 Unknown [id number] 2.16.840.1.528954.3.579.2. 462 Unknown [id number] 2.16.840.1.764252.3.579.2. 462 Unknown [id number] 2.16.840.1.902187.3.579.2. 462 Unknown [id number] 2.16.840.1.929164.3.579.2. 462 Unknown [id number] 2.16.840.1.531527.3.579.2. 462 Unknown [id number] 2.16.840.1.424732.3.579.2. 462 Unknown [id number] 2.16.840.1.206362.3.579.2. 462 Unknown [id number] 2.16.840.1.479186.3.579.2. 462 Unknown [id number] 2.16.840.1.734053.3.579.2. 462 Unknown [id number] 2.16.840.1.168617.3.579.2. 462 Unknown [id number] 2.16.840.1.264028.3.579.2. 462 Unknown [id number] 2.16.840.1.556455.3.579.2. 462 Unknown [id number] 2.16.840.1.866701.3.579.2. 462 Unknown [id number] 2.16.840.1.080136.3.579.2. 462 Unknown [id number] 2.16.840.1.827711.3.579.2. 462 Unknown [id number] 2.16840.1.705569.3.579.2. 462 Unknown [id number] 2.840.1.135891.3.579.2. 462 Unknown [id number] 2.840.1.954680.3.579.2. 462 Unknown [id number] 2.840.1.765661.3.579.2. 462 Unknown [id number] 2.840.1.835752.3.579.2. 462 Unknown [id number] 2.16840.1.543676.3.579.2. 462 Unknown [id number] 2.16.840.1.344358.3.579.2. 462 Unknown [id number] 2.16.840.1.682900.3.579.2. 462 Unknown [id number] 2.16.840.1.820249.3.579.2. 462 Unknown [id number] 2.16.840.1.550154.3.579.2. 462 Unknown [id number] 2.16.840.1.295089.3.579.2. 462 Unknown [id number] 2.16.840.1.343648.3.579.2. 462 Unknown [id number] 2.16840.1.912539.3.579.2. 462 Unknown [id number] 2.16.840.1.818580.3.579.2. 462 Unknown [id number] 2.16.840.1.694464.3.579.2. 462 Unknown [id number] 2.16.840.1.646669.3.579.2. 462 Unknown [id number] 2.16.840.1.253859.3.579.2. 462 Unknown [id number] 2.16.840.1.351470.3.579.2. 462 Unknown [id number] 2.16.840.1.174074.3.579.2. 462 Unknown [id number] 2.16.840.1.476951.3.579.2. 462 Unknown [id number] 2.16.840.1.160457.3.579.2. 462 Unknown [id number] 2.16.840.1.200586.3.579.2. 462 Unknown [id number] 2.16.840.1.280165.3.579.2. 462 Social History Date Type Detail Facility [facility] Work Phone: Start: 08-20-2021 End: 05-04-2023 Tobacco smoking status NHIS Unknown if ever smoked [facility] Start: 07-01-2020 None [facility] Start: 09-08-2020 With Family [facility] Start: 05-25-2020 Cigarettes [facility] Start: 1985 Sex Assigned At Female [facility] Start: 11-16-2022 End: 02-11-2024 Tobacco smoking status Smokes tobacco daily (finding) [facility] Sex Assigned At Sex [facility] Start: 09-02-2004 History of tobacco use Cigarette Smo ker [facility] Start: 11-16-2022 End: 06-21-2024 Cigarettes smoked current (pack per day) - Reported 1 [facility] Start: 11-16-2022 End: 02-11-2024 Tobacco use and exposure Smokeless tobacco non-user [facility] Start: 06-25-2020 End: 11-16-2022 Alcohol intake Current non-drinker of alcohol (finding) [facility] Start: 01-27-2020 End: 06-21-2024 Social connection and isolation panel [facility] Do you belong to any clubs or organizations such as temple groups, unions, fraternal or athletic groups, or school groups? No [facility] Are you now , , , , never or living with a partner? [facility] How often to you hav e a drink containing alcohol? Monthly or less [facility] Work Phone: How many standard drinks containing alcohol do you have on a typical day? 3 or 4 [facility] Work Phone: How often do you hav e 6 or more drinks on 1 occasion? Less than monthly [facility] Work Phone: How hard is it for y ou to pay for the very basics like food, housing, medical care, and heating Hard [facility] Work Phone: Adult Depression Screening Assessment 1 [facility] Do you feel stress - tense, restless, nervous, or anxious, or unable to sleep at night because your mind is troubled all the time - these days [OSQ] Only a little [facility] (I/We) worried wheth er (my/our) food would run out before (I/we) got money to buy more. Never true [facility] Work Phone: Start: 01-27-2020 Education 12 [facility] Start: 12-09-2016 End: 11-16-2022 Tobacco Comment Childhood home parents smoked outside. [facility] Start: 1985 Sex Assigned At Not on file [facility] Start: 05-26-2020 End: 12-31-2020 Exposure to SARS-CoV-2 (event) Not sure [facility] Start: 06-21-2024 Alcoholic beverage intake Current drinker of alcohol (finding) [facility] Start: 03-02-2021 Alcohol Comment occasionally [facility] Start: 02-24-2022 Gender identity Identifies as female gender (finding) [facility] Start: 02-24-2022 Sexual orientation Heterosexual (fin ding) [facility] NEGATED: Highlighted row [facility] Medical Equipment Procedure Code Equipment Code Equipment Origin al Text Equipment Identifier Dates Vaginal hysterectomy SEALANT,JASWINDER SEAL HEMOSTATIC 5ML FDA Start: 03-22-2022 Vaginal hysterectomy ( [id number] FDA Start: 03-22-2022 Vaginal hysterectomy SEALANT,JASWINDER SEAL [...] 02-07-2020 Thyroidectomy FDA Start: 02-07-2020 Laparoscopy, diagnostic ([id number]) [id number] FDA Start: 04-15-2022 Acetone (Urine) Test (Ketone [...] Facility 08-15-2022 Functional Status Room check performed [facility] 08-15-2022 Functional Status [facility] 04-16-2022 Functional status Ambulates [facility] Work Phone: 03-23-2022 Functional status Up ad dylan [facility] Work Phone: Mental Status Date Assessment Result Facility 09-29-2023 Cognitive function Awake;Alert;A ppropriate;Follow s Commands [facility] Work Phone: 06-29-2023 Cognitive function Awake;Alert;A ppropriate;Follow s Commands [facility] Work Phone: 04-17-2023 Cognitive function Awake [facility] Work Phone: 02-14-2023 Cognitive function Voice[facility] Work Phone: 12-25-2022 Cognitive function Voice/Name [facility] Work Phone: 08-17-2022 Cognitive function Awake;Alert;Appropriat [facility] Work Phone: 08-15-2022 Mental Status Orientation Oriented x 4 [facility] 08-15-2022 Mental Status [facility] 07-17-2022 Cognitive function Voice/Name [facility] Work Phone: 04-18-2022 Cognitive function Awake;Alert;A ppropriate;Follow s Commands [facility] Work Phone: 04-16-2022 Cognitive function Voice/Name [facility] Work Phone: 03-30-2022 Cognitive function Awake;Alert;A ppropriate;Follow s Commands [facility] Work Phone: 03-23-2022 Cognitive function Voice/Name [facility] Work Phone: 03-23-2022 [facility]: 11-27-2021 Cognitive function Appropriate;[facility] Work Phone: 08-25-2021 Cognitive function Level Of Cons ciousness Awake;Alert;Appropriate;Follow s Commands [facility] Work Phone: Clinical Notes 2018 to [...] Resource Strain: High Risk (02/19/2020) Received from [facility] Overall Financial Resource Strain (CARDIA) Difficulty of Paying Living Expenses: Hard Food Insecurity: No Food Insecurity (02/19/2020) Received from [facility] Hunger Vital Sign Worried About Running Out of Food in the Last Year: Never true Ran Out of Food in the Last Year: Never true Transportation Needs: No Transportation Needs (02/19/2020) Received from [facility] PRAPARE - Transportation Lack of Transportation (Medical): No Lack of Transportation (Non-Medical): No Physical Activity: Insufficiently Active (01/27/2020) Received from [facility] Exercise Vital Sign Days of Exercise per Week: 2 days Minutes of Exercise per Session: 20 min Stress: No Stress Concern Present (01/27/2020) Received from [facility] [place] [facility] [employer] [facility] - Occupational Stress Questionnaire Feeling of Stress : Only a little Social Connections: Moderately Isolated (01/27/2020) Received from [facility] Social Connection and Isolation Panel [NHANES] Frequency of Communication with Friends and Family: More than three times a week Frequency of Social Gatherings with Friends and Family: Twice a week Attends Episcopal Services: Never Active Member of Clubs or Organizations: No Attends Club or Organization Meetings: Never Marital Status: Housing Stability: Low Risk (01/27/2020) Received from [facility] Housing Stability Vital Sign Unable to Pay [...] 14:55:06 [facility] 06-21-2024 History of Presen t illness [...] Resource Strain: High Risk (02/19/2020) Received from [facility] Overall Financial Resource Strain (CARDIA) Difficulty of Paying Living Expenses: Hard Food Insecurity: No Food Insecurity (02/19/2020) Received from [facility] Hunger Vital Sign Worried About Running Out of Food in the Last Year: Never true Ran Out of Food in the Last Year: Never true Transportation Needs: No Transportation Needs (02/19/2020) Received from [facility] PRAPARE - Transportation Lack of Transportation (Medical): No Lack of Transportation (Non-Medical): No Physical Activity: Insufficiently Active (01/27/2020) Received from [facility] Exercise Vital Sign Days of Exercise per Week: 2 days Minutes of Exercise per Session: 20 min Stress: No Stress Concern Present (01/27/2020) Received from [facility] [place] [facility] - Occupational Stress Questionnaire Feeling of Stress : Only a little Social Connections: Moderately Isolated (01/27/2020) Received from [facility] Social Connection and Isolation Panel [NHANES] Frequency of Communication with Friends and Family: More than three times a week Frequency of Social Gatherings with Friends and Family: Twice a week Attends Episcopal Services: Never Active Member of Clubs or Organizations: No Attends Club or Organization Meetings: Never Marital Status: Housing Stability: Low Risk (01/27/2020) Received from [facility] Housing Stability Vital Sign Unable to Pay [...] cam boot immobilization. documented in this encounter [facility] 09-30-2023 Hospital Discharg e instructions Additional Instructions 1. Apply ice 6-8 times a day 2. Avoid neck movement it causes you pain. 3. If you develop weakness in your hands or difficulty using your upper extremity return to the emergency room otherwise follow-up with your doctor Dr. London [facility] Work Phone: 09-29-2023 Discharge summary Note Date/Time September 29, 2023 3:52p [facility] Medical Records Department [address] [place] [address] Emergency Department Summary 09/29/23 MR#: [id number] Acct: [id number] Name: LANA RIVERA Rep #:[id number] : 1985 38 From: Sorin Jacobs MD [...] Prior similar symptoms: Yes Recent Illness/Hospitalization: Yes [facility] Medical History ADHD (attention deficit hyperactivity [...] % (Auto) 59.6 Lymph % (Auto) 26.8 [place] % (Auto) 9.4 Eos % (Auto) 3.4 [...] Primary Care Provider: Aleena London Referrals: Aleena Lodnon MD [Primary Care Provider] - 3-5 Days [...] your Primary Care Provider. Call [facility] ([phone]) or report to the closest Emergency Room. Call 911 if necessary. 09/29/23 1611 <Electronically signed by Sorin Jacobs MD> Cosigner Signature (if applicable): CC: Dr. Aleena London MD ~ Signed [facility] Work Phone: 1(569) 891-501505-10-2024 Hospital Discharge instructions Additional Instructions 1. Apply ice 6-8 times a day 2. Avoid neck movement it causes you pain. 3. If you develop weakness in your hands or difficulty using your upper extremity return to the emergency room otherwise follow-up with your doctor Dr. Curry [facility] Work Phone: 1(606) 685-946003-27-2024 NoteHNO ID: [id number] Author: JAYLA MEDINA APRN.CURRICULUM DEVELOPMENT COORDINATOR Service: ? Author Type: Nurse Practitioner Type: [...] years as her is s/p vasectomy. 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 Garcia and Dr. Moore IMAGING: [...] negative Last mammogram: 2020, normal Last colonoscopy: N/[facility]03-27-2024 History of Present illness Narrative* Jayla Medina APRN.CURRICULUM DEVELOPMENT COORDINATOR - 08/16/2023 2:30 PM EDT PATIENT DID [...] years as her is s/p vasectomy. 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 Garcia and Dr. Moore IMAGING: [...] normal Last colonoscopy: N/A [facility] Discharge summary Author Ashuotsh Barajas [facility] July 18, 2023 11:41pm Note Date/Time July 18, 2023 11:36pm [facility] Medical Records Department [address] [place] [address] Emergency Department Summary 07/18/23 MR#: [id number] Acct: [id number] Name: LANA RIVERA Rep #:[id number] : 1985 38 From: Ashutosh Barajas MD [...] pain or shortness of breath or syncope. [facility] Medical History Abdominal pain ADHD [...] your Primary Care Provider. Call [facility] ([phone]) or report to the closest Emergency Room. [...] cc: Dr. Aleena London MD ~* Signed [facility] Work Phone: 1(668) 659-398911-22-2023 NoteSpoke with Sandra at [facility]. Explained that we do not except [employer]. State that she will call Pt to let her know. Ok [facility] Telephone encounter Note* Telephone Encounter - Dimple Lewis - 04/12/2023 12:05 PM EST Spoke with Sandra at [facility]. Explained that we do not except [employer]. State that she will call Pt to let her know. Ok to close [id number] Miscellaneous Notes* Telephone Encounter - Dimple Lewis - 04/12/2023 12:05 PM EST Spoke with Sandra at [facility]. Explained that we do not except [employer]. State that she will call Pt to let her know. Ok to close referral documented in this encounterSTrumbull Memorial [id number] Procedure [facility]09-14-2023 Miscellaneous Notes* Telephone Encounter - Riya [...] calling: self Call patient at: on cell [phone] (home) [phone] (cell) Was an appointment scheduled: No Closing statement: Results or non-symptom based questions: Thank you for calling [facility], your call will be returned within the next business day. Radha Stark documented in [facility]Dun[facility]08-06-2023 Discharge summary Author Stephany Robbins [facility] December 25, 2022 2:24pm Note Date/Time December 25, 2022 12: 56pm [facility] Medical Records Department [address] [place] [address] Emergency Department Summary 12/25/22 MR#: [id number] Acct: [id number] Name: LANA RIVERA Rep #:[id number] : 1985 37 From: Ry Enamorado MD [...] a chronic smoker's cough which is unchanged. [facility] <ADRI Burgess - Last Filed: 12/25/22 14:24> [facility] Medical History Abdominal pain ADHD [...] % (Auto) 58.5 Lymph % (Auto) 26.7 Ren[place] % (Auto) 7.8 Eos % (Auto) 5.7 [...] 13:33 EDT Reading Location ID and State: [facility] / [place] Tel , Service support , ED attending [...] Enamorado MD - Last Filed: 12/25/22 13:56> [facility] Narrative Medical decision making narrative: [...] % (Auto) 58.5 Lymph % (Auto) 26.7 [place] % (Auto) 7.8 Eos % (Auto) 5.7 [...] problems, contact your Primary Care Provider. Call [facility] ([phone]) or report to the closest Emergency Room. Call 911 if necessary. 12/25/22 1356 <Electronically signed by Ry Enamorado MD> Cosigner Signature (if applicable): 12/25/22 1424 <Electronically signed by Stephany RUSH> CC: Dr. Aleena London MD ~ Signed [facility] Work Phone: 1(111) 778-874307-01-2023 Discharge summary Author Jesi Padilla [facility] November 20, 2022 12:04am Note Date/Time November 19, 2022 9:23p m [facility] Medical Records Department [address] [place] [address] Emergency Department Summary 11/19/22 MR#: [id number] Acct: [id number] Name: LANA RIVERA Rep #:[id number] : 1985 37 From: Jesi Padilla MD [...] some of her pain possibly from scarring. [facility] Medical History Abdominal pain ADHD [...] liver that are stable. She hasseen her RETOUCHER and then a specialist in [place] but they do not want to remove [...] % (Auto) 55.7 Lymph % (Auto) 30.7 [place] % (Auto) 8.1 Eos % (Auto) 4.7 [...] Instructions: Follow-up with Dr. Tracy and your bi tri operator. Disposition Disposition: Home, Self Care What to do if you have Problems For any increased pain, shortness of breath, bleeding, nausea or vomiting, chestpain, or any unexpected problems, contact your Primary Care Provider. Call [facility] ([phone]) or report to the closest Emergency Room. Call 911 if necessary. 11/20/22 0004 <Electronically signed by Jesi Padilla MD> Cosigner Signature (if applicable): CC: Dr. Aleena London MD ~ Signed [facility] Work Phone: 1(984) 253-357706-28-2023 NoteHNO ID: [id number] Author: LUKASZ EUBANKS MD Service: ? Author [...] years as her is s/p vasectomy. 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 Garcia and Dr. Moore The [...] bleeding, vaginal discharge and vaginal pain. 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 HRT use: No. History of abnormal pap: Yes, 2 (more content not included)...[facility]06-28-2023 History of Present illness Narrative* Lukasz Eubanks [...] years as her is s/p vasectomy. 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 Garcia and Dr. Moore The history is provided by the patient. ROS: Review of Systems Constitutional: Negative for activity change, appetite change, fatigue, fever and unexpected weightchange. Cardiovascular: Negative for chest pain and palpitations. Gastrointestinal: Positive for abdominal pain. Negative for constipation, diarrhea, nausea and vomiting. Genitourinary: Positive for pelvic pain. Negative for vaginal bleeding, vaginal discharge and vaginal pain. 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 Lukasz Eubanks MD, MS Gynecologic Oncologist documented in this encounterDunlap [facility] Hospital03-27-2023 Hospital Discharge instructions Patient Education 08/15/2022 16:51:47 ED Pain Management (04/2018)(CUSTOM) WELCOME Pain Management in our Emergency/Acute Care Facility Our staff understands that pain relief is important when someone is hurt or needs emergency care. However, providing ongoing pain relief is often complex. We recommend this be done through your primary health care provider such as your family doctor or painter helper spray. Because mistakes or misuses of pain medication [...] show a valid photo ID (like a hearse driver's license) when you check into the [...] Monday: or call the Crisis Intervention Center [facility] at [phone]. It is against the law to attempt to obtain controlled substance pain medicines by deceiving the health care provider caring for you. This can include getting multiple prescriptions from more than oneprovider or using someone else s name to obtain a prescription. Follow Up Care 08/15/2022 15:50:06 With:ALEENA LONDON MD Address: [address] [place] [phone]- [phone] When:2-4 days [facility] 03-27-2023 Note Discharge Instructions Thank you for allowing [facility] to assist you with your healthcare needs. The following is importantdischarge information regarding your hospital visit. Diagnosis from Today's Visit Lower leg pain-swelling What to Do Next Instructions from Your Care Team No qualifying data available. Post Acute Orders No qualifying data available. You Need to Schedule the Following Appointments Follow Up with ALEENA LONDON MD When Within 2-4 days Where: [place] [address]- [phone] Allergies Latex (Rash) penicillin (Rash) Medications Please [...] provider such as your family doctor or painter helper spray. Because mistakes or misuses of pain medication [...] show a valid photo ID (like a [place] driver's license) when you check into the [...] Monday: or call the Crisis Intervention Center [facility] at [phone]. It is against the law to attempt [...] to receive it can visit one of [facility] vaccine clinics. There are many vaccine clinic locations within the [facility]. For locations and available times, please visit www.gettheshot.coronavirus.[place].gov/. It is important to note that some COVID mobile vaccine clinics are held outdoors and may be canceled in rainy or stormy conditions. To learn more about pediatric vaccinations (ages 5-11), we invite you to visit the [facility] webpage. [email or web address]/[email or web address] [email or web address] learn more about the COVID-19 vaccine, we invite you to visit the CDC website for a list of frequently asked questions. https://www.cdc.gov/coronavirus/2019-ncov/vaccines/faq.html [facility] Patient Portal Access Instructions: Stay connected with your healthcare team and access your personal medical information anytime with the [facility] Patient Portal. If you would like a full copy of your medical records please contact the [facility] Medical Records Department Monday through Monday between 8a.m. and 4:30p.m. Please follow the directions below to access the portal: 1.Access the email account you provided upon registration to the [facility].2.Look for an invitation email from [facility].3.Open the email and access the invitation link: Accept Invitation to [facility]4.Fill in the required still to create your account. Sign into [email or web address] with your username and password that you [...] you will allow to register on the [facility] Patient Portal for access to your information. You can also access the [facility] Patient Portal on the [employer] deidre. Simply click on Health Records under Certess and then click on the [employer] logo. HOW TO SAFELY DISPOSE OF PRESCRIPTION [...] Call your local pharmacy or go to http://bit.[email or web address]/[email or web address] to find one close to you.3.Make use of household items: Use cat litter or old coffee grounds to dispose medications if other options arenot available. Mix your drugs with these household products, seal them in an airtight container andthrow it into the garbage. Call [facility]: [phone] to be sure your drugs can be [...] aware that I should contact my doctor. Patient/Women Nurse Signature: Date/Time: Relationship to Patient: Witness Name/Signature: Date/Time: [facility]08-12-2021 History of Present illness Narrative * [...] 31, 2020 1:01 PM [facility] History of Present illness Narrative* Zully [...] 25, 2020 3:44 PM [facility] History of Past illness Narrative* Problem [...] of this encounter (statuses as of 02/03/2023) [facility] of Past illness Narrative* Problem [...] of this encounter (statuses as of 07/08/2023) [facility] of Past illness Narrative* Problem [...] of this encounter (statuses as of 08/30/2023) [facility] June 10, 2022 11:20am Note Date/Time June 10, 2022 9 :38am [facility] Medical Records Department [address] [place] [address] Emergency Department Summary 06/10/22 MR#: [id number] Acct: [id number] Name: LANA RIVERA Rep #:[id number] : 1985 37 From: Sorin Jacobs MD [...] return to the emergency room with imaging. [facility] Medical History Abdominal pain Acute bronchitis, [...] % (Auto) 56.4 Lymph % (Auto) 26.4 [place] % (Auto) 8.3 Eos % (Auto) 8.0 [...] your Primary Care Provider. Call [facility] ([phone]) or report to the closest Emergency Room. Call 911 if necessary. 06/10/22 1120 <Electronically signed by Sorin Jacobs MD> Cosigner Signature (if applicable): CC: Dr. Aleena London MD ~ Signed [facility] Work Phone: Discharge summary Author Yusuf Apple [facility] February 14, 2023 7:59am Note Date/Time February 14, 2023 7:56am [facility] Medical Records Department [address] [place] [address] Instructions for Home/Discharge Instructions 02/14/23 0756 MR#: [id number] Acct: [id number] Name: LANA RIVERA Rep #:[id number] : 1985 37 From: Yusuf Apple DO PCP: Dr. Aleena London MD Status:R EG [facility] Discharge Instructions Diet Discharge Diet: No restrictions [...] % cream with perineal applicator 1 applic [place] QD-BID PRN (Reason: itching) Qty: 30 2RF [...] can be placed): Home, Self Care 02/14/23 5546<Electronically signed by Yusuf Apple DO>[facility] CC: Dr. Aleena London MD ~ Signed [facility] Work Phone: Discharge summary Author Ry Enamorado [facility] May 04, 2023 1:14pm Note Date/Time May 04, 2023 1:06pm [facility] Medical Records Department [address] [place] [address] Emergency Department Summary 05/04/23 MR#: [id number] Acct: [id number] Name: LANA RIVERA Rep #:[id number] : 1985 38 From: Ry Enamorado MD [...] sclera of her right eye. Saw her tactical/mobile watch officer at [facility] told her it was a subconjunctival [...] your Primary Care Provider. Call [facility] ([phone]) or report to the closest Emergency Room. Call 911 if necessary. 05/04/23 1314 <Electronically signed by Ry Enamorado MD> Cosigner Signature (if applicable): CC: Dr. Aleena London MD ~ Signed [facility] Work Phone: Evaluation + Plan note No data available for this section [facility] Evaluation note* Diagnosis Onset Date Resolution [...] abdominal pain acute Tinnitus acute Vertigo acute [facility] Work Phone: Evaluation note* Diagnosis Onset [...] (nonalcoholic steatohepatitis) acute Chronic RUQ pain chronic [facility] Work Phone: Evaluation note* Diagnosis Onset [...] Palpitations acute Menorrhagia with irregular cycle acute [facility] Work Phone: Evaluation note* Diagnosis Onset [...] acute 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 [facility] Work Phone: Evaluation note* Diagnosis Onset [...] Irritant contact dermatitis due to plant acute [facility] Work Phone: Evaluation note* Diagnosis Onset [...] upper extremities chronic Vitamin d deficiency chronic [facility] Work Phone: Evaluation note* Diagnosis Onset [...] deficiency chronic Menorrhagia with irregular cycle acute [facility] Work Phone: Evaluation note* Diagnosis Onset [...] (nonalcoholic steatohepatitis) acute Chronic RUQ pain chronic [facility] Work Phone: Evaluation note* Diagnosis Onset [...] (nonalcoholic steatohepatitis) acute Chronic RUQ pain chronic [facility] Work Phone: Evaluation note* Diagnosis Onset [...] Menorrhagia with irregular cycle acute 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's 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 Metabolic syndrome chronic NAFLD (nonalcoholic fatty liver disease) acute Obesity acute Fibromyalgia affecting multiple sites acute Meralgia paresthetica of left side acute Sciatica, right side acute Strain of lumbar region acut e Low back pain chronic [facility] Work Phone: Evaluation note* Diagnosis Onset [...] Menorrhagia with irregular cycle acute Almaz's 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 Metabolic syndrome chronic NAFLD (nonalcoholic fatty liver disease) acute Obesity acute Fibromyalgia affecting multiple sites acute Meralgia paresthetica of left side acute Sciatica, right side acute Strain of lumbar region acut e Low back pain chronic Chronic low back pain noneac tive Fibromyalgia noneactive [facility] Work Phone: Evaluation note* Diagnosis Onset Date Resolution Status Menorrhagia with irregular cycle acute Early satiety acute MARCELINO (nonalcoholic steatohepatitis) acute Chronic RUQ pain resolved Type 2 diabetes mellitus acu te Essential hypertension chron ic Localized swelling, mass and lump, neck resolved Obesity resolved Menorrhagia with irregular cycle acute Almaz's 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 Metabolic syndrome chronic NAFLD (nonalcoholic fatty [...] syndrome chronic PCOS (polycystic ovarian syndrome) chronic [facility] Work Phone: Evaluation note* Diagnosis Onset Date Resolution Status Menorrhagia with irregular cycle acute Early satiety acute MARCELINO (nonalcoholic steatohepatitis) acute Chronic RUQ pain resolved Type 2 diabetes mellitus acu te Essential hypertension chron ic Localized swelling, mass and lump, neck resolved Obesity resolved Menorrhagia with irregular cycle acute 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's 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 Metabolic syndrome chronic NAFLD (nonalcoholic fatty [...] acute Postoperative pain acute Urinary hesitancy acute [facility] Work Phone: Evaluation note* Diagnosis Onset Date Resolution Status Menorrhagia with irregular cycle acute Early satiety acute MARCELINO (nonalcoholic steatohepatitis) acute Chronic RUQ pain resolved Type 2 diabetes mellitus acu te Essential hypertension chron ic Localized swelling, mass and lump, neck resolved Obesity resolved Menorrhagia with irregular cycle acute Almaz's 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 Metabolic syndrome chronic NAFLD (nonalcoholic fatty [...] pain chronic Hypertension chronic Tobacco abuse chronic [facility] Work Phone: Evaluation note* Diagnosis Onset Date Resolution Status Early satiety acute MARCELINO (nonalcoholic steatohepatitis) acute Chronic RUQ pain resolved Type 2 diabetes mellitus acu te Localized swelling, mass and lump, neck resolved Obesity resolved Almaz's 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 Metabolic syndrome chronic Menorrhagia with irregular [...] disorder with panic attacks chronic Almaz's 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 Hypertension chronic Metabolic syndrome chronic PCOS (polycystic ovarian syndrome) chronic Personal history of malignant melanoma chronic Tobacco abuse chronic Abdominal pain resolved Chest pain resolved History of hypertension reso lved [facility] Work Phone: Evaluation note* Diagnosis Onset Date Resolution Status Type 2 diabetes mellitus acu te Localized swelling, mass and lump, neck resolved Obesity resolved Almaz's 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 Metabolic syndrome chronic Menorrhagia with irregular [...] disorder with panic attacks chronic Almaz's 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 Hypertension chronic Metabolic syndrome chronic PCOS (polycystic ovarian syndrome) chronic Personal history of malignant melanoma chronic Tobacco abuse chronic Abdominal pain resolved Chest pain resolved History of hypertension reso lved Postoperative abscess acute Postoperative abscess acute Postoperative pain acute S/P vaginal hysterectomy acu te [facility] Work Phone: Evaluation note* Diagnosis Onset Date Resolution Status Almaz's 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 Metabolic syndrome chronic Menorrhagia with irregular [...] obesity acute Fibromyalgia affecting multiple sites acute MARCELNIO (nonalcoholic steatohepatitis) acute Postoperative abscess acute Postoperative pain acute S/P vaginal hysterectomy acu te Sciatica, right side acute Type 2 diabetes mellitus acu te Chronic back pain chronic 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 Almaz's 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 Hypertension chronic Metabolic syndrome chronic PCOS (polycystic ovarian syndrome) chronic Personal history of malignant melanoma chronic Tobacco abuse chronic Abdominal pain resolved Chest pain resolved History of hypertension reso lved Postoperative abscess acute Postoperative abscess acute Postoperative pain acute S/P vaginal hysterectomy acu te Nicotine dependence, cigarettes, uncomplicated resolved Ovarian cyst acute Postoperative abscess acute Postoperative pain acute Almaz's 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 Hypertension chronic Vitamin d deficiency chronic Fatigue noneactive Varicose vein of leg noneact jimmie [facility] Work Phone: Evaluation note* Diagnosis Onset [...] disorder with panic attacks chronic Almaz's 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 Hypertension chronic Metabolic syndrome chronic PCOS (polycystic ovarian syndrome) chronic Personal history of malignant melanoma chronic Tobacco abuse chronic Abdominal pain resolved Chest pain resolved History of hypertension reso lved Postoperative abscess acute Postoperative abscess acute Postoperative pain acute S/P vaginal hysterectomy acu te Nicotine dependence, cigarettes, uncomplicated resolved Ovarian cyst acute Postoperative abscess acute Postoperative pain acute Almaz's 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 Hypertension chronic Vitamin d deficiency chronic Fatigue noneactive Varicose vein of leg noneact jimmie Ovarian cyst acute Acute bronchitis noneactive [facility] Work Phone: Evaluation note* Diagnosis Onset [...] disorder with panic attacks chronic Almaz's 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 Hypertension chronic Metabolic syndrome chronic PCOS (polycystic ovarian syndrome) chronic Personal history of malignant melanoma chronic Tobacco abuse chronic Abdominal pain resolved Chest pain resolved History of hypertension reso lved Postoperative abscess acute Postoperative abscess acute Postoperative pain acute S/P vaginal hysterectomy acu te Nicotine dependence, cigarettes, uncomplicated resolved Ovarian cyst acute Postoperative abscess acute Postoperative pain acute Almaz's 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 Hypertension chronic Vitamin d deficiency chronic Fatigue noneactive Varicose vein of leg noneact jimmie Ovarian cyst acute Acute bronchitis noneactive NAFLD (nonalcoholic fatty liver disease) chronic RUQ abdominal pain chronic [facility] Work Phone: Evaluation note* Diagnosis Onset Date Resolution Status Postoperative pain acute Urinary hesitancy resolved Class II obesity acute Fibromyalgia affecting multiple sites acute MARCELINO (nonalcoholic steatohepatitis) acute Postoperative abscess acute Postoperative pain acute S/P vaginal hysterectomy acu te Sciatica, right side acute Type 2 diabetes mellitus acu te Chronic back pain chronic 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 Almaz's 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 Hypertension chronic Metabolic syndrome chronic PCOS (polycystic ovarian syndrome) chronic Personal history of malignant melanoma chronic Tobacco abuse chronic Abdominal pain resolved Chest pain resolved History of hypertension reso lved Postoperative abscess acute Postoperative abscess acute Postoperative pain acute S/P vaginal hysterectomy acu te Nicotine dependence, cigarettes, uncomplicated resolved Ovarian cyst acute Postoperative abscess acute Postoperative pain acute Almaz's 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 Hypertension chronic Vitamin d deficiency chronic Fatigue noneactive Varicose vein of leg noneact jimmie Ovarian cyst acute Acute bronchitis noneactive NAFLD (nonalcoholic fatty liver disease) chronic RUQ abdominal pain chronic [facility] Work Phone: Evaluation note* Diagnosis Onset Date Resolution Status Ovarian cyst acute Acute bronchitis noneactive NAFLD (nonalcoholic fatty liver disease) chronic RUQ abdominal pain chronic Pectoralis muscle strain non eactive Cough acute Anxiety and depression chron ic Hypertension chronic Left shoulder pain chronic Left shoulder pain chronic [facility] Work Phone: Evaluation note* Diagnosis Onset Date Resolution Status NAFLD (nonalcoholic fatty liver disease) chronic RUQ abdominal pain chronic Pectoralis muscle strain non eactive Cough acute Anxiety and depression chron ic Hypertension chronic Left shoulder pain chronic Left shoulder pain chronic Carpal tunnel syndrome of right wrist noneactive [facility] Work Phone: Evaluation note* Diagnosis Onset Date Resolution Status Pectoralis muscle strain non eactive Cough acute Anxiety and depression chron ic Hypertension chronic Left shoulder pain chronic Left shoulder pain chronic Carpal tunnel syndrome of right wrist noneactive Carpal tunnel syndrome of right wrist noneactive [facility] Work Phone: Evaluation note* Diagnosis Onset Date Resolution Status Pectoralis muscle strain non eactive Cough acute Anxiety and depression chron ic Hypertension chronic Left shoulder pain chronic Left shoulder pain chronic Carpal tunnel syndrome of right wrist noneactive Carpal tunnel syndrome of right wrist noneactive NAFLD (nonalcoholic fatty liver disease) chronic RUQ abdominal pain chronic [facility] Work Phone: Evaluation note* Diagnosis Onset [...] e Possible exposure to STD non eactive [facility] Work Phone: Evaluation note* Diagnosis Onset [...] e Possible exposure to STD non eactive [facility] Work Phone: Evaluation note* Diagnosis Onset [...] Anxiety and depression chron ic Hypertension chronic [facility] Work Phone: Evaluation note* Diagnosis Onset [...] left acute Lumbar facet joint syndrome acute [facility] Work Phone: Evaluation note* Diagnosis Onset [...] viral diseases acute Acute sinusitis, unspecified resolved [facility] Work Phone: Evaluation note* Diagnosis Onset [...] Acute sinusitis, unspecified resolved Orthopedic aftercare acute [facility] Work Phone: Evaluation note* Diagnosis Onset [...] Acute sinusitis, unspecified resolved Orthopedic aftercare acute [facility] Work Phone: Evaluation note* Diagnosis Onset [...] Orthopedic aftercare acute Climacteric acute Mastalgia acute [facility] Work Phone: Evaluation note* Diagnosis Onset [...] Orthopedic aftercare acute Climacteric acute Mastalgia acute [facility] Work Phone: Evaluation note* Diagnosis Onset [...] liver disease) chronic RUQ abdominal pain chronic [facility] Work Phone: Evaluation note* Diagnosis Pelvic pain in female- Primary Unspecified symptom associated with female genital organs [facility] Diagnosis Onset Date Resolution Status [...] acu te Pelvic pain acute Vaginitis acute [facility] Work Phone: Evaluation note* Diagnosis Onset [...] acu te Pelvic pain acute Vaginitis acute [facility] Work Phone: Evaluation note* Diagnosis NO SHOW- Primary [facility] Diagnosis Onset Date Resolution Status [...] chronic RUQ abdominal pain chronic Vaginitis acute [facility] Work Phone: Evaluation note* Diagnosis Onset [...] chronic Vaginitis acute Class II obesity chronic [facility] Work Phone: Evaluation note* Diagnosis Onset [...] Acute pharyngitis acute Breast pain, right acute [facility] Work Phone: Evaluation note* Diagnosis Pain- Primary Generalized pain documented in this encounter [facility] note* Diagnosis Preoperative examination- Primary Preoperative [...] of left shoulder documented in this encounter [facility] note* Diagnosis Preoperative examination- Primary Preoperative [...] chronic documented in this encounter [facility] note* Diagnosis Onset Date Resolution Status [...] liver disease) chronic RUQ abdominal pain chronic [facility] Work Phone: Evaluation note* Diagnosis Plantar fasciitis- Primary Plantar fascial fibromatosis [facility] Yusuf [facility] February 14, 2023 7:11am Note Date/Time February 14, 2023 7:11am [facility] Medical Records Department [address] [place] [address] History & Physical Exam 02/14/23 0711 MR#: [id number] Acct: [id number] Name: LANA RIVERA Rep #:[id number] : 1985 37 From: Yusuf Apple DO PCP: Dr. Aleena London MD Status:R [facility] Location: [place] [address]- History and Physical Date of Admission: 02/14/23 [facility] [address] [place] [address] [place] [id number] OFFICE VISIT Date of Service: 11/18/22 MR#: [id number] Acct: [id number] Name: LANA RIVERA Rep #: [id number] : 1985 Provider: Dr. Yusuf Apple DO Age/Sex: 37/F Location: [email or web address] Status: Signed Intake Vital Signs 09/02/2309:43 11/09/2315:37 [...] by me, Dr. Yusuf Apple, DO 11/18/22 0698. LANA RIVERA is a 37 year old [...] London MD; Dr. Yusuf Apple DO~ Signed [facility] Work Phone[facility] Work Phone: Hospital Discharge instructions Additional Instructions Do not take your cyclobenzaprine. Take Valium as prescribed as needed. Start your Cymbalta as prescribed by your pain doctor. Start your steroids a report is at the pharmacy. We discussed with Dr. Avilez for possible tramadol as he noted on his consult if needed. Follow- up with your doctors.[facility] Work Phone: Hospital Discharge instructions Additional Instructions Please follow-up outpatient.[facility] Work Phone: Hospital Discharge instructions Additional Instructions Follow-up with Dr. Tracy and your bi tri operator.[facility] Work Phone: Hospital Discharge instructions Additional Instructions Today your cardiac work-up was normal. Based on your examination I think you have musculoskeletal pain in the trapezius and shoulder area and prescribed a different muscle relaxer you can try. You can also add Tylenol 1000 mg every 6 hours to your regimen of ketoprofen. Please follow-up with your primary care doctor.[facility] Work Phone: Hospital Discharge instructions Additional Instructions UpPlease follow-up with your RETOUCHER for this pain. Lives at antibiotic ointment to the open wounds in your left groin. I we have referred you to general surgery for further evaluation of these lymph nodes and pain in your thigh. You can continue to take your anti-inflammatory (ketoprofen) for pain. Apply cool compresses to the area.[facility] Work Phone: Hospital Discharge instructions Additional [...] discuss further pain management. You can try [id number] 4% exercise Lidoderm patches. Please continue to follow-up with your outpatient ultrasound for your lymph nodes and with surgery as well. I would recommend that you follow-up with your orthopedic coder. I will give you information for a spine doctor in case this pain is actually coming from your back.[facility] Work Phone: Hospital Discharge instructions Additional Instructions Take baby aspirin every day along with warm/hot compresses to affected area 2-3 times daily until pain resolved.[facility] Work Phone: Hospital Discharge instructions Additional Instructions This should improve over the next week.[facility] Work Phone: Reason for referral (narrative)* Diagnostic Procedure Only (Routine) - Authorized Specialty Diagnoses / Procedures Referred By Elaina wyman Referred To Contact XR IMAGING Diagnoses Pain Procedures XR FOOT GENERAL 3V AP/LAT/OBL RIGHT RADEX FOOT COMPLETE MINIMUM 3 VIEWS Patrick Fontaine [address] [place] [address] [place] [id number] Referral ID Status Reason Start Date Expiration Date Visits Requested Visits Authorized [id number] Authorized Auto-Generat ed Referral 11/20/2023 12/19/2024 1 1 [facility] for referral (narrative)* Diagnostic Procedure Only (Urgent) - Closed Specialty Diagnoses / Procedures Referred By Contac t Referred To Contact XR IMAGING Diagnoses Acute pain of left shoulder Procedures XR SHOULDER GENERAL 3V OR MORE AP/TRUE AP/OTHER LT X-RAY SHOULDER COMPLET MIN 2 VIEWS Kavita Jurado PA-C [address] [place] [address] [place] [address] Referral ID Status Reason Start Date Expiration Date V isits Requested Visits Authorized Closed Auto-Generate d Referral 12/31/2020 01/30/2022 1 1 [facility] for visit Narrative* Diagnostic Procedure Only (Urgent) - Closed Specialty Diagnoses / Procedures Referred By Contac t Referred To Contact XR IMAGING Diagnoses Acute pain of left shoulder Procedures XR SHOULDER GENERAL 3V OR MORE AP/TRUE AP/OTHER LT X-RAY SHOULDER COMPLET MIN 2 VIEWS Kaivta Jurado PA-C [address] [place] [address] [place] [address] Referral ID Status Reason Start Date Expiration Date V isits Requested Visits Authorized Closed Auto-Generate d Referral 12/31/2020 01/30/2022 1 1 [facility] Summary Purpose Family History No Family [...] No August 20, 2021 3:48pm Power of Sugar Mill Worker No August 20 3:48pm Advance Directive Response Recorded Date/ Time Advance Directives No June 29, 2021 12:31pm Living Will No August 25, 2021 10:11pm Power of Sugar Mill Worker No August 25 10:11pm Advance Directive Response Recorded Date/ Time Advance Directives No June 29, 2021 12:31pm Living Will No November 27, 2021 1 :20am Power of Sugar Mill Worker No November 27, 2021 1:20am Advance Directive Response Recorded Date/ Time Advance Directives No December 14 10:42am Living Will No December 23, 2021 10:29pm Power of Sugar Mill Worker No December 23 10:29pm Advance Directive Response Recorded Date/ Time Advance Directives No December 24 9:47am Living Will No December 24, 2021 9:47am Power of Sugar Mill Worker No December 24 9:47am Advance Directive Response Recorded Date/ Time Advance Directives No December 24 9:47am Living Will No February 15, 2022 11:42am Power of Sugar Mill Worker No January 11:42am Advance Directive Response Recorded Date/ Time Advance Directives No December 24 9:47am Living Will No March 04 2:10pm Power of Sugar Mill Worker No March 04, 2022 2:10pm Advance Directive Response Recorded Date/ Time Advance Directives No December 24 9:47am Living Will No March 12 12:40pm Power of Sugar Mill Worker No March 12, 2022 12:40pm Advance Directive Response Recorded Date/ Time Advance Directives No December 24 9:47am Living Will No March 22 5:41pm Power of Sugar Mill Worker No March 22, 2022 5:41pm Advance Directive Response Recorded Date/ Time Advance Directives No December 24 8:47am Living Will No March 30 3:11pm Power of Sugar Mill Worker No March 30, 2022 3:11pm Advance Directive Response Recorded Date/ Time Advance Directives No December 24 8:47am Living Will No April 12 4:52pm Power of Sugar Mill Worker No April 12, 2022 4:52pm Advance Directive Response Recorded Date/ Time Advance Directives No December 24 8:47am Living Will No April 12 8:56pm Power of Sugar Mill Worker No April 12, 2022 8:56pm Advance Directive Response Recorded Date/ Time Advance Directives No December 24 8:47am Living Will No April 18 5:38pm Power of Sugar Mill Worker No April 18, 2022 5:38pm Advance Directive Response Recorded Date/ Time Advance Directives No December 24 8:47am Living Will No May 22 11:57pm Power of Sugar Mill Worker No May 22 11:57pm Advance Directive Response Recorded Date/ Time Advance Directives No December 24 8:47am Living Will No June 10 9:17am Power of Sugar Mill Worker No June 10, 2022 9:17am Advance Directive Response Recorded Date/ Time Advance Directives No December 24 8:47am Living Will No July 17 7:06pm Power of Sugar Mill Worker No July 17, 2022 7:06pm Advance Directive Response Recorded Date/ Time Advance Directives No December 24 9:47am Living Will No July 17 8:06pm Power of Sugar Mill Worker No July 17, 2022 8:06pm Advance Directive Response Recorded Date/ Time Advance Directives No December 24 9:47am Living Will No August 26, 2022 3:23pm Power of Sugar Mill Worker No August 26 3:23pm Advance Directive Response Recorded Date/ Time Advance Directives No December 24 9:47am Living Will No November 08, 2022 4:52pm Power of Sugar Mill Worker No November 08 4:52pm Advance Directive Response Recorded Date/ Time Advance Directives No December 24 9:47am Living Will No November 19, 2022 9 :51pm Power of Sugar Mill Worker No November 19, 2022 9:51pm Advance Directive Response Recorded Date/ Time Advance Directives No November 24 2:09pm Living Will No November 25, 2022 2 :14pm Power of Sugar Mill Worker No November 25, 2022 2:14pm Advance Directive Response Recorded Date/ Time Advance Directives No December 13 10:51am Living Will No December 13, 2022 10:51am Power of Sugar Mill Worker No December 13 10:51am Advance Directive Response Recorded Date/ Time Advance Directives No December 13 10:51am Living Will No December 25, 2022 1:19pm Power of Sugar Mill Worker No December 25 1:19pm Advance Directive Response Recorded Date/ Time Advance Directives No December 13 10:51am Living Will No February 04, 2023 7:53pm Power of Sugar Mill Worker No January 7:53pm Advance Directive Response Recorded Date/ Time Advance Directives No December 13 10:51am Living Will No February 08, 2023 6:47pm Power of Sugar Mill Worker No January 6:47pm Advance Directive Response Recorded Date/ Time Advance Directives No January 10:58am Living Will No February 10, 2023 10:58am Power of Sugar Mill Worker No January 10:58am Advance Directive Response Recorded Date/ Time Advance Directives No March 16, 2023 7:15am Living Will No March 16 7:15am Power of Sugar Mill Worker No March 16, 2023 7:15am Advance Directive Response Recorded Date/ Time Advance Directives No March 16, 2023 7:15am Living Will No April 17, 023 4:04pm Power of Sugar Mill Worker No April 17, 2023 4:04pm Advance Directive Response Recorded Date/ Time Advance Directives No March 16, 2023 7:15am Living Will No May 04, 12:57pm Power of Sugar Mill Worker No May 04, 2023 12:57pm Advance Directive Response Recorded Date/ Time Advance Directives No March 16, 2023 7:15am Living Will No July 18, 024 10:49pm Power of Sugar Mill Worker No July 18, 2023 10:49pm Advance Directive Response Recorded Date/ Time Advance Directives No March 16, 2023 7:15am Living Will No July 25, 2023 8:51pm Power of Sugar Mill Worker No July 24 8:51pm Advance Directive Response Recorded Date/ Time Advance Directives No August 07 8:42am Living Will No August 08, 2023 8:42am Power of Sugar Mill Worker No August 07 8:42am Advance Directive Response Recorded Date/ Time Advance Directives No March 16, 2023 8:15am Living Will No July 25, 2023 9:51pm Power of Sugar Mill Worker No July 24 9:51pm Advance Directive Response Recorded Date/ Time Advance Directives No March 16, 2023 8:15am Living Will No September 08, 2023 10:23am Power of Sugar Mill Worker No September 07 10:23am Advance Directive Response Recorded Date/ Time Advance Directives No March 16, 2023 8:15am Living Will No September 29, 2023 3 :36pm Power of Sugar Mill Worker No September 29, 2023 3:36pm Chief Complaint and Reason for Visit Chief Complaint Back Pain, Fall 2 M FU PHONE-COLD SYMPTOMS COVID TEST bp issues 6-8 WK F/UP RUQ PAIN abd pain anxiety /insomnia enlarged liver & spleen FATTY LIVER CP/ANXIETY/REF. 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 CERVICAL/ RX HERE 1 MO FU [...] ablation ER FU fluid in ears AUB /[facility] CERVICAL/ RX HERE 1 MO FU [...] Complaint ER FU fluid in ears AUB /[facility] CERVICAL/ RX HERE 1 MO FU [...] pain Chief Complaint fluid in ears AUB /[facility] CERVICAL/ RX HERE 1 MO FU [...] Referred By Elaina wyman Referred To Contact Machine Stripper Cutter Diagnoses Pelvic pain in female Procedures CONSULT TO GYNECOLOGY Lukasz Eubanks MD [address] [place] [address] Fatmata England DO [address] [place] [address] Referral ID Status Reason Start Date Expiration Date Visits Requested Visits Authorized [id number] Ref Not Required PCP Requested Referral 11/17/2022 11/16/2023 1 1 Additional Source Comments INFORMATION SOURCE (unrecogn ized section and content) DATE CREATED AUTHOR 11/15/2017 [facility] DATE CREATED AUTHOR AUTHOR'S ORGANIZ ATION 11/29/2017 [facility] DATE CREATED AUTHOR AUTHOR'S ORGANIZ ATION 07/07/2022 [facility] DATE CREATED AUTHOR AUTHOR'S ORGANIZ ATION 07/21/2022 [facility] DATE CREATED AUTHOR AUTHOR'S ORGANIZ ATION 10/11/2022 [facility] ([place]) DATE CREATED AUTHOR AUTHOR'S ORGANIZ ATION 04/14/2023 [facility] DATE CREATED AUTHOR AUTHOR'S ORGANIZ ATION 07/09/2023 [facility] DATE CREATED AUTHOR AUTHOR'S ORGANIZ ATION 08/30/2023 [facility] DATE CREATED AUTHOR AUTHOR'S ORGANIZ ATION 06/26/2024 [facility] DATE CREATED AUTHOR AUTHOR'S ORGANIZ ATION 11/06/2024 [facility] DATE CREATED AUTHOR AUTHOR'S ORGANIZ ATION 04/03/2025 [facility] Goals (unrecognized section and content) Goals [...] Provider, Refer ring Provider Active Rea Poon DIRECTOR OF ACADEMIC, DIRECTOR OF ACADEMIC-C Attending Provider Active Team Status: Inactive Member [...] Care Provider, Refer ring Provider Active Antonio eKe PA, PA Attending Provider Active Team Status: Inactive Member Role Status Dates Dr. Aleena London MD Primary Care Provider Active Dr. Jossue Sanchez MD Attending Provider Active Team Status: Inactive Member Role Status Dates Dr. Aleena London MD Primary Care Provider, Refer ring Provider Active Libertad Stubbs DIRECTOR OF ACADEMIC, DIRECTOR OF ACADEMIC-C Attending Provider Active Team Status: Active Member [...] London MD Primary Care Provider Active Dr. Cassiyd Moore MD Admit Provid er, Attending Provider, Referring Provider Active Team Status: Inactive Member Role Status Dates Dr. Aleena London MD Primary Care Provider Active Rea Poon DIRECTOR OF ACADEMIC, DIRECTOR OF ACADEMIC-C Attending Provider, Referrin g Provider Active Dr. [...] Status: Inactive Member Role Status Dates Dr. Alenea London MD Primary Care Provider Active Dr. [...] MD Primary Care Provider Active Rea Poon DIRECTOR OF ACADEMIC, DIRECTOR OF ACADEMIC-C Attending Provider Active Team Status: Inactive Member [...] MD Primary Care Provider Active Rea Poon DIRECTOR OF ACADEMIC, DIRECTOR OF ACADEMIC-C Attending Provider Active Team Status: Inactive Member Role Status Dates Dr. Aleena London MD Primary Care Provider, Refer ring Provider Active Hanh Balderas DIRECTOR OF ACADEMIC, DIRECTOR OF ACADEMIC-C Attending Provider Active Team Status: Inactive Member Role Status Dates Dr. Aleena London MD Primary Care Provider, Refer ring Provider Active Deysi Mcfarlane DIRECTOR OF ACADEMIC, DIRECTOR OF ACADEMIC-C Attending Provider Active Team Status: Active Member [...] MD Primary Care Provider Active Hanh Balderas DIRECTOR OF ACADEMIC, DIRECTOR OF ACADEMIC-C Attending Provider, Referring Provider Active Team Status: Inactive Member Role Status Dates Dr. Aleena London MD Primary Care Provider Active Dr. Ry Enamorado MD Emergency Provider Active Drill Press Operator Relationship Specialty Start Date End Date Dimple Lynn [address] [place] [address] RETOUCHER 12/15/22 Team Status: Inactive Member Role Status [...] Dr. Greg Melgar DO Referring Provider Active Drill Press Operator Relationship Specialty Start Date End Date Nima Kaur MD [address] [place] [address] PCP - General Family Medicine 04/30/13 02/01/23 [...] MD Attending Provider, Referrin g Provider Active Drill Press Operator Relationship Specialty Start Date End Date Aleena London [address] [place] [address] PCP - General 07/27/23 Dimple Lynn [address] [place] [address] Machine Stripper Cutter 12/15/22 Team Status: Inactive Member Role Status [...] P rovider, Attending Provider, Referring Provider Active Drill Press Operator Relationship Specialty Start Date End Date Aleena London [address] [place] [address] PCP - General 07/27/23 Dimple Lynn [address] [place] [address] Machine Stripper Cutter 12/15/22 Drill Press Operator Relationship Specialty Start Date End Date Nima Kaur MD [address] [place] [address] PCP - General Family Medicine 04/30/13 02/01/23 Drill Press Operator Relationship Specialty Start Date End Date Nima Kaur MD [address] [place] [address] PCP - General Family Medicine 04/30/13 02/01/23 Drill Press Operator Relationship Specialty Start Date End Date Aleena London MD [address] [place], [place] [id number] PCP - General Internal Medicine 03/13/21 Source Comments (unrecognize d section and content) In the event this informatio n is protected by the Federal Confidentiality of Alcohol and Drug Abuse Patient Records regulations: The Federal rules restrict any use of the information to criminally investigate or prosecute any alcohol or drug abuse patient.[facility] the event this information is protected by the Federal Confidentiality of Alcohol and Drug Abuse Patient Records regulations: The Federal rules restrict any use of the information to criminally investigate or prosecute any alcohol or drug abuse patient.[facility] Hospital[facility] the event this information is protected by the Federal Confidentiality of Alcohol and Drug Abuse Patient Records regulations: The Federal rules restrict any use of the information to criminally investigate or prosecute any alcohol or drug abuse patient.[facility] the event this information is protected by the Federal Confidentiality of Alcohol and Drug Abuse Patient Records regulations: The Federal rules restrict any use of the information to criminally investigate or prosecute any alcohol or drug abuse patient.[facility] Hospital[facility] the event this information is protected by the Federal Confidentiality of Alcohol and Drug Abuse Patient Records regulations: The Federal rules restrict any use of the information to criminally investigate or prosecute any alcohol or drug abuse patient.[facility] Hospital[facility] the event this information is protected by the Federal Confidentiality of Alcohol and Drug Abuse Patient Records regulations: The Federal rules restrict any use of the information to criminally investigate or prosecute any alcohol or drug abuse patient.[facility] Reason for Visit (unrecogniz ed section [...] BE BASED ON THE PRIMARY CLINICAL RECORDS. [employer] provides no warranty or guarantee of the accuracy or completeness of information in this document.
--- NOTE | 2025-05-20 20:57 | EX.ED.DYSGE1 ---
HPI History of Present Illness Chief Complaint: Abd Pain Narrative Narrative: Chief complaint and HPI: 40-year-old female with past medical history of DVT, hypothyroidism, depression/anxiety, NAFLD presents for evaluation of right upper quadrant abdominal pain. Onset of symptoms 3 days. Denies any fever, chills, shortness of breath, chest pain, nausea, vomiting. Patient follows with Dr. Tracy. Review of systems: See HPI Medications: As listed on the chart Allergies: As listed on the chart PFSH: Per chart Vital signs: As listed on the chart. Reviewed. Physical exam: Gen: A&O x3, NAD Head: Normocephalic, atraumatic Eyes: No sclera icterus, conjunctiva clear ENT: Moist mucous membranes CV: RRR, no murmurs Resp: Lungs CTA BL, no w/r/c GI: Abd soft, non-distended, mildly tender to palpation of the right upper quadrant, no r/r Musc: Full ROM, no deformity Skin: Warm, dry Psych: Cooperative, appropriate mood and affect PFSH PFSH Medical History (Updated 05/02/25 @ 11:[address] Earnest Haynes MD) Carpal tunnel syndrome of left wrist Strain of left hip Encounter for vitamin deficiency screening Bacterial sinusitis Dysfunction of right eustachian tube Obesity (BMI 30-39.9) Borderline type 2 diabetes mellitus Hx of flexible sigmoidoscopy Wears glasses Heartburn Bronchitis History of edema Hx of fracture of arm Deep vein blood clot of right lower extremity DVT (deep venous thrombosis) Right foot sprain Right ankle sprain Breast pain, right Herniated nucleus pulposus, C4-5 Contact with or exposure to other viral diseases Dermatitis PONV (postoperative nausea and vomiting) Leg cramps Anxiety and depression Left shoulder pain Depression Chronic pain Cancer Arthritis Fatty liver Restless legs Back pain Injury of head and neck Syncope Fibromyalgia History of pain when walking Hypertension History of echocardiogram History of stress test Cardiology follow-up encounter Localized swelling, mass and lump, neck Cervical lymphadenopathy Heartburn Chronic RUQ pain Tinnitus Vertigo Ectopic cardiac beats Palpitations RUQ abdominal pain Cervical radiculopathy Chronic back pain Left-sided low back pain with left-sided sciatica Hypocalcemia Tobacco abuse Bronchitis Morbid obesity Post herpetic neuralgia NICOL[place]S (generalized anxiety disorder) ADHD (attention deficit hyperactivity disorder), combined type Numbness and tingling of both upper extremities Numbness of both lower extremities Migraine without aura and with status migrainosus, not intractable PCOS (polycystic ovarian syndrome) History of gestational diabetes Almaz's thyroiditis History of acne Thyroid disease Home Medications ?Medication ?Instructions ?Recorded ?Last Taken ?Type albuterol sulfate 2.5 mg/3 mL 2.5 mg (3 mL) inhalation Q6H PRN 01/16/24 Unknown Rx (0.083 %) solution for nebulization shortness of breath or wheezing #90 mL compress.stocking,knee,reg,lrg #2 ea 03/21/24 Unknown Rx albuterol sulfate 90 mcg/actuation 2 puff inhalation Q6H PRN 05/03/24 04/05/25 Rx aerosol inhaler shortness of breath or wheezing #8.5 grams aspirin 81 mg tablet,delayed 81 mg PO DAILY 07/08/24 04/07/25 History release (Adult Low Dose Aspirin) ketoprofen 75 mg capsule 75 mg PO Q6H PRN Migraine Symptoms 12/17/24 Unknown Rx #100 caps amlodipine 5 mg tablet 5 mg PO DAILY for blood pressure 02/24/25 04/07/25 Rx #90 TABLETS ursodiol 300 mg capsule 300 mg PO BID #180 caps 02/24/25 04/07/25 Rx rizatriptan 10 mg tablet 10 mg PO .COMPLEX migraine 03/05/25 Unknown Rx headache #9 tabs cholecalciferol (vitamin D3) 1,250 1,250 mcg PO QWEEK #14 caps 03/18/25 Unknown Rx mcg (50,000 unit) capsule levothyroxine 125 mcg tablet 125 mcg PO DAILY synthroid #60 tabs 03/18/25 04/08/25 Rx oxycodone-acetaminophen 5 mg-325 1 tab PO Q8H PRN pain 04/08/25 04/07/25 History mg tablet cyanocobalamin (vitamin B-12) 1,000 mcg PO QDAY 1 month #30 tabs 04/23/25 Unknown Rx 1,000 mcg tablet rosuvastatin 10 mg tablet 10 mg PO QHS cholesterol 3 months 04/23/25 Unknown Rx #90 tabs diclofenac sodium 1 % topical gel 4 g topical 4X/DAY PRN Neck and 05/02/25 Unknown Rx other musculoskeletal pain #100 grams prochlorperazine maleate 10 mg 10 mg PO BID PRN for migraine #30 05/02/25 Unknown Rx tablet TABLETS topiramate 50 mg tablet 50 mg PO BID #60 tabs 05/02/25 Unknown Rx Allergy/AdvReac Type Severity Reaction Status Date / Time latex Allergy Itching Verified 05/20/25 20:27 naproxen Allergy Unknown Verified 05/20/25 20:27 Penicillins (PCN) Allergy Rash Verified 05/20/25 20:27 escitalopram (From Lexapro) AdvReac Intermediate Lightheaded Verified 05/20/25 20:27 sertraline (From Zoloft) AdvReac Intermediate Dizzy & Verified 05/20/25 20:27 Headache NSAIDS (Non-Steroidal AdvReac Mild Other Verified 05/20/25 20:27 Anti-Inflamma hydrocodone (From Vicodin) AdvReac Other Verified 05/20/25 20:27 ketorolac (From Toradol) AdvReac Other Verified 05/20/25 20:27 Family History Grandmother Diabetes Hypertension Hypercholesterolemia Thyroid disorder Mother Family history of skin cancer Other High cholesterol Surgical History History of varicose vein ligation (08/27/24) History of carpal tunnel surgery of right wrist History of surgery on lower extremity Status post incision and drainage (~04/15/22) History of total vaginal hysterectomy (TVH) (~03/22/22) History of thyroidectomy Social History household members: spouse housing: house Smoking Status: Heavy Smoker (>10/day) Tobacco: How many years used: 13 Electronic Cigarette Use: not used second hand exposure: No alcohol intake: current alcohol intake frequency: holidays/special occasions only substance use type: does not use caffeine: Yes what type of physical activity do you participate in: none seatbelt use: always do you feel safe at home: Yes additional social history: emmy EXAM Physical Exam Const Vital Signs: 05/20/25 20:26 Temperature 98 F Temperature Source Oral Pulse Rate 8 L Respiratory Rate 16 Blood Pressure 145/94 H Blood Pressure Mean 111 Pulse Ox 100 Oxygen Delivery Method Room Air MDM MDM MDM Narrative Medical decision making narrative: 40-year-old female with past medical history of DVT, hypothyroidism, depression/anxiety, NAFLD presents for evaluation of right upper quadrant abdominal pain. Onset of symptoms [address] Tracy. Differential diagnosis includes but is not limited to NAFLD, cholelithiasis, cholecystitis, pancreatitis, gastroenteritis. Morphine and Zofran ordered. Laboratory workup ordered including ultrasound of the gallbladder. Patient does not want IV medication therefore we will give her home narcotic and p.o. Zofran. CBC without leukocytosis or anemia. Platelets unremarkable. CMP unremarkable. Lipase unremarkable. UA negative for UTI. Ultrasound of the gallbladder shows hepatomegaly with prominent diffuse hepatic steatosis. No cholelithiasis or bili duct dilation. At this point in time, no clear etiology to explain patient's right upper quadrant pain. Recommend following up with Dr. Tracy. Return back to ED symptoms change or worsen. She confirmed understand the plan. Patient stable for discharge home. Impression: 1. Right upper quadrant abdominal pain 2. History of NAFLD Lab Data Labs: Laboratory Results - last 24 hr 05/20/25 05/20/25 20:54 21:21 WBC 5.6 RBC 4.94 Hgb 14.1 Hct 41.6 MCV 84.2 MCH 28.5 MCHC 33.9 RDW Std Deviation 37.9 RDW Coeff of Mikel 12.5 Plt Count 174 MPV 11.5 Immature Gran % (Auto) 0.200 Neut % (Auto) 49.3 Lymph % (Auto) 39.5 [place] % (Auto) 6.2 Eos % (Auto) 4.1 Baso % (Auto) 0.7 Absolute Neuts (auto) 2.8 Absolute Lymphs (auto) 2.22 Nucleated RBC % 0 Sodium 140 Potassium 3.6 Chloride 104 Carbon Dioxide 24.8 Anion Gap 11 BUN 6 Creatinine 0.71 Estim Creat Clear Calc 135.58 Est GFR (MDRD) Non-Af 112 BUN/Creatinine Ratio 9.1 L Glucose 91 Calcium 9.0 Total Bilirubin 0.25 AST 22 ALT 28 Alkaline Phosphatase 62 Total Protein 6.6 Albumin 4.2 Globulin 2.5 Albumin/Globulin Ratio 1.7 Lipase 5 L Urine Color Straw Urine Clarity Sl. Cloudy Urine pH 7.0 Ur Specific [place] 1.015 Urine Protein Negative Urine Glucose (UA) Normal Urine Ketones Negative Urine Occult Blood Negative Urine Nitrite Negative Urine Bilirubin Negative Urine Urobilinogen Normal Ur Leukocyte Esterase Negative Radiography Diagnostic Testing: Clinical Impression(s) from Imaging Studies Gallbladder Ultrasound 05/20/25 20:50 IMPRESSION: Hepatomegaly with prominent diffuse hepatic steatosis. No cholelithiasis or biliary ductal dilatation. Reading Location: [facility] Discharge Plan Triage Chief Complaint: Abd Pain ED Provider: Chuck Allen Dx/Rx/DC Orders Prescriptions: No Action albuterol sulfate 90 mcg/actuation HFA aerosol inhaler 2 puff inhalation Q6H PRN (Reason: shortness of breath or wheezing) Qty: 8.5 0RF rizatriptan 10 mg tablet 10 mg PO .COMPLEX Qty: 9 4RF Patient Comments: pt has not yet started taking Rx Instructions: Take 1 tablet orally every two hours as needed for headache up to three tablets per day topiramate 50 mg tablet 50 mg PO BID Qty: 60 5RF diclofenac sodium 1 % gel 4 g topical 4X/DAY PRN (Reason: Neck and other musculoskeletal pain) Qty: 100 3RF prochlorperazine maleate 10 mg tablet 10 mg PO BID PRN (Reason: for migraine) Qty: 30 3RF aspirin [Adult Low Dose Aspirin] 81 mg tablet,delayed release (DR/EC) 81 mg PO DAILY oxycodone-acetaminophen 5-325 mg tablet 1 tab PO Q8H PRN (Reason: pain) albuterol sulfate 2.5 mg /3 mL (0.083 %) solution for nebulization 2.5 mg inhalation Q6H PRN (Reason: shortness of breath or wheezing) Qty: 90 1RF (DME) compress.stocking,knee,reg,lrg Misc See Rx Instructions .MEDSUPPLY Qty: 2 1RF Rx Instructions: wear daily for venous insufficiency 20-30 mmHg ketoprofen 75 mg capsule 75 mg PO Q6H PRN (Reason: Migraine Symptoms) Qty: 100 1RF Rx Instructions: 1 cap PO at on set of headache max of 3 in 24 hours, max 20 per month ursodiol 300 mg capsule 300 mg PO BID Qty: 180 1RF amlodipine 5 mg tablet 5 mg PO DAILY Qty: 90 1RF cholecalciferol (vitamin D3) 1,250 mcg (50,000 unit) capsule 1,250 mcg PO QWEEK Qty: 14 3RF Patient Comments: pt has not yet started taking levothyroxine 125 mcg tablet 125 mcg PO DAILY Qty: 60 1RF cyanocobalamin (vitamin B-12) 1,000 mcg tablet 1,000 mcg PO QDAY 30 Days Qty: 30 3RF rosuvastatin 10 mg tablet 10 mg PO QHS 90 Days Qty: 90 2RF Primary Care Provider: Jose Alejandro London Referrals: Jose Alejandro London MD [Primary Care Provider, Internal Medicine] Print Language: Pashto
[2025-05-20 21:20] LABS: Hematocrit 41.6 % (37-47); Hemoglobin 14.1 g/dL (12.0-15.0); Immature Granulocytes Count 0.010 X10^3/uL (0.0-0.0); Mean Corp Hgb Conc 33.9 g/dL (32-36); Mean Corpuscular Volume 84.2 fL (81-99); Mean Platelet Vol. 11.5 fl (6.2-12.0); NRBC Flagged by Analyzer 0 % (0-5); Platelet Count 174 K/mm3 (150-450); RBC Distribution Width CV 12.5 % (11.6-14.6); RBC Distribution Width SD 37.9 fl (35.1-43.9); Red Blood Count 4.94 M/mm3 (4.2-5.4); White Blood Count 5.6 K/mm3 (4.4-11.0)
[2025-05-20 21:27] LABS: Mucous, Urine 0 SEEN /hpf (<or=2+); Red Blood Cells-Urine 0 SEEN /hpf (0-5)
[2025-05-20 21:36] LABS: Lipase 5 U/L (13-75)
[2025-05-20 21:39] LABS: Color, Urine Straw (Yellow); Glucose, Dipstick Normal (Normal); Ketone-Dipstick Negative (Negative); Leukocyte Esterase-Dipstick Negative /ul (Negative); Nitrite-Dipstick Negative (Negative); Occult Blood-Urine Negative /ul (Negative); Protein-Dipstick Negative (Negative); Specific Gravity, Urine 1.015 (1.002-1.030); Urine Bilirubin Dipstick Negative (Negative)
[2025-05-20 21:53] LABS: AST(SGOT) 22 U/L (<=31); Alanine Aminotransfer ALT/SGPT 28 U/L (<=34); Albumin, Serum 4.2 g/dL (3.5-5.0); Alkaline Phosphatase 62 U/L (35-104); Anion Gap 11 (7-18); BUN 6 mg/dL (4-19); BUN/Creat Ratio 9.1 RATIO (10-20); Calcium,Total 9.0 mg/dL (7.6-11.0); Carbon Dioxide 24.8 mmol/L (20.0-29.0); Chloride 104 mmol/L (96-106); Estimated Creatinine Clearance 135.58 ml/min (50-250); Globulin 2.5 g/dL (2.2-4.2); Glucose 91 mg/dL (70-99); Potassium 3.6 mmol/L (3.5-5.1)
[2025-05-20 22:11] LABS: Squamous Epithelial Cells - UA 5-10 SEEN /hpf (5-10)
[2025-05-20 22:23] VITALS: BP 115/70; PULSE 61; RESP 17; TEMP 36.8; O2SAT 100
== END 2025-05-20 22:24 | disposition home or self-care (01) ==
PROVIDERS: Emergency Provider Surgery; PCP Internal Medicine; Visit Provider Surgery
DX: R16.0 Hepatomegaly, not elsewhere classified (principal); K76.0 Fatty (change of) liver, not elsewhere classified; R10.11 Right upper quadrant pain; F17.200 Nicotine dependence, unspecified, uncomplicated; Z86.718 Personal history of other venous thrombosis and embolism
CPT/HCPCS: J2405; 76705; 80053; 81001; 83690; 85025; 99284